=== PATIENT | male | born 1950 | race Caucasian/White ===

== ENCOUNTER 2017-04-24 15:30 | Inpatient (IN) | payer MEDICARE, BC ==
[~2017-04-24] VITALS: Ht 172.7 cm; Wt 101.7 kg
[~2017-04-24 15:30] MED LIST: ATOR20TA17; CLOP75TA19; ESOM20CA; INSU100I15; METF500T4; PIOG15TA12; PREG150C; WARF7.5T; ZOLP5TAB
[2017-04-24] MEDS ORDERED: SODIUM CHLORIDE 0.9% 1L BAG IV* STA (16:34)
[2017-04-24 16:50] VITALS: Ht 172.7 cm; Wt 101.7 kg
[2017-04-24 17:07] LABS: INR 1.55; PROTIME 18.7 Sec (12.2-14.2); PT RATIO 1.5
[2017-04-24 17:08] LABS: PARTIAL THROMBOPLASTIN TIME 43.1 Sec (25.0-35.0)
[2017-04-24 17:13] LABS: ALBUMIN 3.6 g/dl (3.3-4.9); ALBUMIN/GLOBULIN RATIO 0.87; BILIRUBIN,INDIRECT 0.6 mg/dl (0-1.1); BILIRUBIN,TOTAL 0.6 mg/dl (0.2-1.3); CALCIUM 9.3 mg/dl (8.4-10.2); CREATININE 5.71 mg/dl (0.61-1.24); POTASSIUM 4.4 mmol/L (3.5-5.1); TOTAL PROTEIN 7.7 g/dl (6.1-8.1)
[2017-04-24 17:27] LABS: BASOPHIL # 0.1 10^3/ul (0.0-0.1); BASOPHILS % 0.6 % (0.0-2.0); EOSINOPHILS # 1.1 10^3/ul (0.0-0.5); EOSINOPHILS % 10.3 % (0.0-7.0); HEMATOCRIT 28.6 % (42.0-52.0); HEMOGLOBIN 10.4 g/dl (14.0-18.0); LYMPHOCYTES # 1.5 10^3/ul (0.8-2.9); LYMPHOCYTES % 13.6 % (15.0-51.0); MEAN CORPUSCULAR HEMOGLOBIN 34.1 pg (29.0-33.0); MEAN CORPUSCULAR HGB CONC 36.4 g/dl (32.0-37.0); MEAN CORPUSCULAR VOLUME 93.8 fl (82.0-101.0); MEAN PLATELET VOLUME 12.3 fl (7.4-10.4); MONOCYTE # 0.9 10^3/ul (0.3-0.9); NEUTROPHIL # 7.4 10^3/ul (1.6-7.5); PLATELET COUNT 329 10^3/UL (140-415); RED BLOOD COUNT 3.05 10^6/ul (4.70-6.10)
[2017-04-24 17:30] LABS: TROPONIN-I 0.404 ng/ml (0.00-0.12)
--- NOTE | 2017-04-24 17:36 | RADRPT ---
PROCEDURE: XR Chest. CLINICAL INDICATION: Sepsis TECHNIQUE: Single AP portable chest. COMPARISON: No prior Chest x-ray FINDINGS: The cardiomediastinal silhouette is within normal limits of size. Mild interstitial and vascular pro minence. Atherosclerotic calcification of the aorta. The lungs are clear without pleural effusion or focal consolidation. No pneumothorax. The osseous structures and soft tissues are unremarkable. IMPRESSION: 1. Mild vascular and interstitial prominence without pleural effusion or focal consolidation. . RPTAT:AAJJ Physician Dutch Date Time Electronically viewed and signed by Physician Dutch on 04/24/2017 17:36 KARLA/
[2017-04-24] MEDS ORDERED: HYDR-902 PO (18:20)
[2017-04-24] MEDS ORDERED: ERGO500037 PO (18:21)
[2017-04-24] MEDS ORDERED: FER325 PO (18:21)
[2017-04-24] MEDS ORDERED: FURO40TA4 PO (18:22)
[2017-04-24] MEDS ORDERED: LABE300T PO (18:22)
[2017-04-24] MEDS ORDERED: AMLO5TAB4 PO (18:23)
[2017-04-24] MEDS ORDERED: ATOR80TA75 PO (18:23)
[2017-04-24] MEDS ORDERED: VALS1TAB80 PO (18:24)
[2017-04-24] MEDS ORDERED: ESOM40CA PO (18:24)
[2017-04-24] MEDS ORDERED: FEBU40TA PO (18:25)
[2017-04-24] MEDS ORDERED: SITA100T8 PO (18:25)
[2017-04-24] MEDS ORDERED: LANT3I SC (18:26)
[2017-04-24] MEDS ORDERED: RIVA15TA PO (18:26)
[2017-04-24] MEDS ORDERED: NOVO3I SC (18:29)
--- NOTE | 2017-04-24 18:44 | ERD ---
ER Documentation Chief Complaint Chief Complaint Cough, congestion x 1 week HPI This is a 66-year-old male who presents to the emergency room for evaluation of generalized weakness, cough and congestion for the past week. This patient does have a history of high blood pressure, and states that he does have a history of "kidney problem". The patient is not on dialysis at this time and came to the ER for evaluation of his symptoms which have been present for 7 days duration. He denies any chest pain at this time, he does state that he has had chills and denies any fever currently. He denies any aggravating or relieving factors for his symptoms ROS All systems reviewed and are negative except as per history of present illness. Medications Home Meds Reported Medications Multivit/Ca Carb/B Cmplx/Fa* (Isabel-Brenda*) 1 Tab Tab, 1 TAB PO DAILY, TAB 04/24/17 Insulin Aspart* (Novolog Insulin Pen*) 100 Unit/Ml Soln, 0 SC .SLIDING SCALE AC , EA INJECT PER SLIDING SCALE TID BEFORE MEALS 04/24/17 Insulin Glargine* (Lantus*) 100 Unit/Ml Soln, 52 UNIT SC QHS, #1 VIAL 04/24/17 Rivaroxaban* (Xarelto*) 15 Mg Tablet, 15 MG PO WITH BREAKFAST , TAB 04/24/17 Febuxostat* (Uloric*) 40 Mg Tablet, 40 MG PO DAILY, TAB 04/24/17 Sitagliptin* (Januvia*) 100 Mg Tablet, 100 MG PO DAILY, #30 TAB 04/24/17 Valsartan-Hydrochlorothiazide (Valsartan-HCTZ) 320-12.5 Mg Tablet, 1 TAB PO DAILY, #30 TAB 04/24/17 Esomeprazole Mag Trihydrate (Nexium) 40 Mg Capsule.dr, 40 MG PO DAILY, #30 CAP 04/24/17 Atorvastatin* (Atorvastatin*) 80 Mg Tablet, 80 MG PO QHS, #30 TAB 04/24/17 Amlodipine Besylate* (Norvasc*) 5 Mg Tablet, 5 MG PO DAILY, TAB 04/24/17 Furosemide* (Furosemide*) 40 Mg Tablet, 40 MG PO BID, TAB 04/24/17 Labetalol Hcl* (Labetalol Hcl*) 300 Mg Tablet, 300 MG PO BID, TAB 04/24/17 Ergocalciferol (Vitamin D2) (VITAMIN D2) 50,000 Unit Capsule, 99931 UNIT PO Q7D , CAP 04/24/17 Ferrous Sulfate* (Ferrous Sulfate*) 325 Mg Tabec, 325 MG PO DAILY, TAB 04/24/17 Hydrocodone/Acetaminophen (Pontiac 10-325 Tablet) 1 Each Tablet, 1 EACH PO Q6H, TAB 04/24/17 Discontinued Reported Medications Warfarin Sodium* (Coumadin*) 7.5 Mg Tablet 06/07/10 Esomeprazole Mag Trihydrate (Nexium) 20 Mg Capsule. 05/16/10 Pregabalin* (Lyrica*) 150 Mg Capsule 05/16/10 Zolpidem Tartrate (Ambien Naresh) 5 Mg Tablet 05/16/10 Insulin Glargine,Hum.rec.anlog (Lantus Solostar) 100 Units/Ml Pen 05/16/10 Metformin* (Glucophage*) 500 Mg Tab 05/16/10 Atorvastatin (Lipitor) 20 Mg Tablet 05/16/10 Pioglitazone Hcl* (Actos*) 15 Mg Tablet 05/15/10 Clopidogrel Bisulfate (Plavix) 75 Mg Tablet 05/15/10 Allergies Allergies: Coded Allergies: No Known Allergies (Verified Allergy, Mild, 04/24/17) PMhx/Soc History of Surgery: No Anesthesia Reaction: No Hx 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 Disorder: No Hx Respiratory Disorders: No Hx Cardiac Disorders: No (htn ) Hx Psychiatric Problems: No Hx Miscellaneous Medical Probl: Yes (dm , renal disease) Hx Alcohol Use: No Hx Substance Use: No Hx Tobacco Use: No Smoking Status: Former smoker Physical Exam Vitals Vital Signs Date Time Temp Pulse Resp B/P Pulse Ox O2 Delivery O2 Flow Rate FiO2 04/24/17 16:50 97.7 71 18 120/60 96 Physical Exam INITIAL VITAL SIGNS: Reviewed by me GENERAL: The patient is ill-appearing elderly male, no acute distress HEENT: Pupils equal, round, and reactive to light. EOMI. There is no scleral icterus. NECK: C-spine is soft and supple, there is no meningismus. There is no cervical lymphadenopathy. LUNGS: Clear to auscultation bilaterally. There are no rales, wheezes or rhonchi. HEART: Regular rate and rhythm, no murmurs, clicks, rubs or gallops. ABDOMEN: Soft, non-tender, non-distended. There are bowel sounds in all four quadrants. No rebound or guarding. EXTREMITIES: There is no peripheral cyanosis or edema. No focal swelling or erythema. NEUROLOGICAL: The patient moves all four extremities with 5/5 strength. Cranial nerves II - XII are intact. Normal gait. Alert and oriented SKIN: There is no apparent rash or petechiae. HEME/LYMPHATIC: There is no evidence of excessive bruising or lymphedema. PSYCHIATRIC: The patient does not appear anxious or depressed. Result Diagram: 04/24/17 1635 04/24/17 1635 Results 24 hrs Laboratory Tests Test 04/24/17 16:35 White Blood Count 11.010^3/ul Red Blood Count 3.0510^6/ul Hemoglobin 10.4g/dl Hematocrit 28.6% Mean Corpuscular Volume 93.8fl Mean Corpuscular Hemoglobin 34.1pg Mean Corpuscular Hemoglobin Concent 36.4g/dl Red Cell Distribution Width 17.0% Platelet Count 06940^3/UL Mean Platelet Volume 12.3fl Neutrophils % 67.0% Lymphocytes % 13.6% Monocytes % 8.0% Eosinophils % 10.3% Basophils % 0.6% Nucleated Red Blood Cells % 0.0/100WBC Neutrophils # 7.410^3/ul Lymphocytes # 1.510^3/ul Monocytes # 0.910^3/ul Eosinophils # 1.110^3/ul Basophils # 0.110^3/ul Nucleated Red Blood Cells # 0.010^3/ul Prothrombin Time 18.7Sec Prothrombin Time Ratio 1.5 INR International Normalized Ratio 1.55 Activated Partial Thromboplast Time 43.1Sec Sodium Level 136mmol/L Potassium Level 4.4mmol/L Chloride Level 100mmol/L Carbon Dioxide Level 23mmol/L Anion Gap 17 Blood Urea Nitrogen 74mg/dl Creatinine 5.71mg/dl Glucose Level 85mg/dl Lactic Acid Level 2.0mmol/L Calcium Level 9.3mg/dl Total Bilirubin 0.6mg/dl Direct Bilirubin 0.00mg/dl Indirect Bilirubin 0.6mg/dl Aspartate Amino Transf (AST/SGOT) 20IU/L Alanine Aminotransferase (ALT/SGPT) 43IU/L Alkaline Phosphatase 70IU/L Troponin I 0.404ng/ml Total Protein 7.7g/dl Albumin 3.6g/dl Globulin 4.10g/dl Albumin/Globulin Ratio 0.87 Current Medications Medications (Trade) Dose Ordered Sig/Becky Route PRN Reason Start Time Stop Time Status Last Admin Dose Admin Sodium Chloride (NS) 2,500 ml BOLUS OVER 2 HOURS STAT IV* 04/24/17 16:34 04/24/17 16:35 DC 04/24/17 16:54 Ondansetron HCl (Zofran Inj) 4 mg ER BRIDGE PRN IV NAUSEA AND/OR VOMITING 04/24/17 19:30 04/25/17 19:29 Acetaminophen (Tylenol Tab) 650 mg ER BRIDGE PRN PO MILD PAIN/FEVER 04/24/17 19:30 04/25/17 19:29 Procedures/MDM EKG: Rate/Rhythm: [Normal Sinus Rhythm] QRS, ST, T-waves: [No changes consistent w/ acute ischemia] Impression: [No evidence of ischemia or arrhythmia] Chest X-ray 1V Interpreted by me: Soft Tissue: No acute abnormalities Bones: No acute abnormalities Mediastinum/Cardiac Silhouette/Lungs: [No acute abnormalities] This 66-year-old male presents to the emergency room for evaluation of generalized weakness, and congestion. The patient did state he had some renal issues however denied being on dialysis. Lab work was obtained and the patient does have an elevated troponin and an elevated creatinine. His last creatinine was from 2010 and was less than 2. Today's creatinine is 5.71 with an elevated BUN as well. 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 kennedy at [facility] and I contacted the physician on-call, Dr. Mcclellan and have reviewed the lab work with him. The on-call physician does not have this patient's baseline creatinine, I also mentioned that the patient does have elevated troponin. Although this elevated troponin can be due to his elevated creatinine I have no baseline creatinine at this point to make that determination. This patient is feeling weak, he does not have any chest pain and since I do not have any background information will place the patient in for admission at this time on the telemetry floor for acute renal failure, non- ST elevation KS. The patient's family members are okay with her plan of care at this time and the patient will be admitted to telemetry floor under the care of Dr. Najera Critical Care: Excluding all billable procedures Time: 35 minutes Treatments/Evaluations: Close monitoring and treatment of unstable vital signs, cardiorespiratory, and neurologic status, while maintaining tight balance of fluid, respiratory, and cardiac interventions. Departure Diagnosis: Primary Impression: Acute renal failure Additional Impressions: Elevated troponin Cough Normocytic anemia Condition: Stable RICHARD WEINER DO Apr 24, 2017 18:44
[2017-04-24] MEDS ORDERED: NEPH PO (18:46)
[2017-04-24] MEDS ORDERED: ONDANSETRON 4 MG INJ IV PRN (19:30)
[2017-04-24] MEDS ORDERED: ACETAMINOPHEN 325 MG TAB PO PRN (19:30)
[2017-04-24] MEDS ORDERED: ASPIRIN 325 MG TAB PO ONE (19:30)
[2017-04-24 19:58] LABS: ADD UMIC YES; UR ASCORBIC ACID NEGATIVE (NEGATIVE); UR BILIRUBIN (Dip) NEGATIVE (NEGATIVE); UR BLOOD (Dip) NEGATIVE (NEGATIVE); UR CLARITY CLOUDY (CLEAR); UR COLOR YELLOW (YELLOW); UR GLUCOSE (Dip) 1+ mg/dL (NEGATIVE); UR KETONES (Dip) NEGATIVE (NEGATIVE); UR LEUKOCYTE ESTERASE (Dip) NEGATIVE Leu/ul (NEGATIVE); UR MUCUS FEW /HPF (NONE SEEN); UR NITRITE (Dip) NEGATIVE (NEGATIVE); UR RBC 0 /HPF (0-5); UR TOTAL PROTEIN (Dip) 3+ mg/dl (NEGATIVE); UR UROBILINOGEN (Dip) NEGATIVE (NEGATIVE)
[2017-04-24 21:07] VITALS: PULSE 56
[2017-04-24 21:21] VITALS: BP 164/73; RESP 19
[2017-04-24] MEDS ORDERED: ONDANSETRON 4 MG TAB PO PRN (23:00)
[2017-04-24] MEDS ORDERED: BISACODYL (EC) 5 MG TAB PO PRN (23:00)
[2017-04-24] MEDS ORDERED: NITROGLYCERIN (SL) 0.4 MG TAB SL PRN (23:00)
[2017-04-24] MEDS ORDERED: NACL 0.9% 3 ML SYG IV SCH (23:00)
[2017-04-24] MEDS ORDERED: DOCUSATE SODIUM 100 MG CAP PO PRN (23:00)
[2017-04-25] VITALS (11 sets, daily range): BP systolic 157–192; BP diastolic 70–88; PULSE 57–107; RESP 19–21
[2017-04-25 00:09] LABS: CK-MB 2.17 ng/ml (0.0-2.4); TROPONIN-I 0.305 ng/ml (0.00-0.12)
[2017-04-25] MEDS: ALBUTEROL/IPRATROPIUM (NEB) 3 ML AMP HHN SCH ×6 (00:52→21:18)
[2017-04-25] MEDS ORDERED: METHYLPREDNISOLONE 125 MG INJ IV ONE (03:30)
[2017-04-25] MEDS ORDERED: FUROSEMIDE 40 MG INJ IV ONE (03:30)
--- NOTE | 2017-04-25 03:40 | HP ---
Date/Time of Note Date/Time of Note DATE: 04/25/17 TIME: 03:23 Assessment/Plan VTE Prophylaxis VTE Prophylaxis Intervention: SCD's Lines/Catheters IV [facility]ter [facility]from [facility] Mid Line Urinary Cath still in place: No Assessment/Plan Chief Complaint/Hosp Course This is a 66-year-old male being admitted to the telemetry floor for: #1 shortness of breath: Fluid overload secondary to cardiac and/or renal disease versus COPD exacerbation. Auditory wheezing bilaterally on examination and with some mild lower extremity edema. He has history of smoking in the past. At the current time I am unsure whether this is respiratory versus cardiac and renal. He does have a significantly worsened renal failure at this time compared to his previous one in 2011. At the current time I will treat him with duo nebs every 4 hours. Will load him with Solu-Medrol IV. We will also give him Lasix 40 mg IV 1 for diuresis. Will check an echocardiogram and a BNP. Will trend cardiac enzymes. First troponin was elevated at 0.4 however patient denies any chest pain, so this could be secondary to his renal failure. #2 Acute on chronic kidney disease: Possibly secondary to ATN versus AIN and/ or related to diabetes and/or hypertension his previous creatinine is 1.60 which was in 2011 at this facility. At the current time it is elevated above 5. I will order a renal ultrasound bilaterally check urine microscope, urine sodium, urine osmolality. I will hold his ARB combination pill, I will also hold you uloric. I will give him a dose of Lasix 40 IV right now in the setting of #1. Will put him on renal diet and strict I's and O's and a fluid restriction of 800 cc. Will consult nephrology. #3 elevated troponin: Patient's first troponin is elevated at 0.4. Patient denying any chest pain. His EKG does not appear ischemic. At the current time this could be secondary to his kidney disease. Will continue to trend troponins. Will get an echocardiogram. And consult cardiology if indicated #4 normocytic anemia: We will check iron stores, this could be secondary to patient's chronic kidney disease as well, will wait for further limitations from nephrology. Continue ferrous sulfate. #5 leukocytosis: Patient has elevated white count of 11,000, patient is afebrile and there is no source of any infection at this time. Will order urinalysis. This could be stress related. Will continue to follow this. #6 diabetes mellitus: We will check hemoglobin A1c, patient on insulin sliding scale, continue patient's home Lantus and will need to monitor sugars in the setting of systemic steroids. #7 hypertension: We will continue patient's amlodipine, as needed hydralazine. Will hold ARB combination pill secondary to #2. #8 gout: At the current time will hold uloric in the setting of #2 as a can cause interstitial nephritis. #9 GERD: Continue PPI #10 history of DVT: Patient reports a history of a DVT in the past however no recent one that he can confirm. Nonetheless we will continue Xarelto for now until we get further information regarding why he is on it at this time. #11 DVT GI prophylaxis: Xarelto, PPI Further treatment strategy will be implemented as per the clinical course Problems: HPI/ROS Admit Date/Time Admit Date/Time Apr 24, 2017 at 19:05 Hx of Present Illness cc: cough, congestion x 1 week This is a 66-year-old male who presents to the emergency room for evaluation of generalized weakness, cough and congestion for the past week. This patient does have a history of high blood pressure, and states that he does have a history of "kidney problem". The patient is not on dialysis at this time and came to the ER for evaluation of his symptoms which have been present for 7 days duration. He denies any chest pain at this time, he does state that he has had chills and denies any fever currently. He denies any aggravating or relieving factors for his symptoms allergies: nkda meds: see jul DOM Const: As per HPI Eyes : No pain discharge or redness or change in visual acuity ENT: No pain, sore throat, congestion, congestion, dysphagia or discharge Respiratory: As per HPI Cardiovascular: No chest pain, palpitation, PND, or edema GI : no change in appetite, abdominal pain, nausea, vomiting, diarrhea, constipation, or change in the color his stool Genitourinary: No dysuria, hematuria, flank pain , discharge or CVA tenderness , he states that he still urinating normally Musculoskeletal: No joint pain, back pain, neck pain, restricted range of motion in neck or joints Skin: No rash, bruising or hives Neuro: No headache, dizziness, syncope, seizure, focal weakness Endocrine: No polyuria, polydipsia, temperature intolerance Psych: No hallucination, depression, anxiety or suicidal ideation PMH/Family/Social Past Medical History DM, htn, [place], CKD, gout, anemia, hx of dvt, GERD Past Surgical History Stents x 2 Family History Significant Family History: no pertinent family hx Social History Alcohol Use: occasionally Smoking Status: Former smoker Drug Use: none Exam/Review of Systems Vital Signs Vitals Vital Signs Date Time Temp Pulse Resp B/P Pulse Ox O2 Delivery O2 Flow Rate FiO2 04/25/17 00:52 2.0 04/25/17 00:52 85 24 88 Nasal Cannula 04/25/17 00:00 98.2 166/75 Exam Exam General: This is a obese male lying in bed in no acute distress but he is coughing HEENT: Atraumatic, normocephalic. The pupils are equal, round and reactive. Extraocular motor are intact Neck: Supple with full range of motion. No rigidity or meningismus Chest: Nontender Lungs: Expiratory wheezing bilaterally, no increased work of breathing, coughing Heart: Normal S1-S2, Regular rhythm and rate. No murmur, S3, or S4 Abdomen: Soft , nontender, nondistended , bowel sounds are present. No guarding no rebound tenderness , No masses or organomegaly. No costovertebral temporal angle mass Extremities: Normal to inspection, no edema no cyanosis Neurologic: Normal mental status, speech normal, cranial nerves II through XII are intact, motor and sensory are intact, no focal weakness Additional Comments PROCEDURE: XR Chest. CLINICAL INDICATION: Sepsis TECHNIQUE: Single AP portable chest. COMPARISON: No prior Chest x-ray FINDINGS: The cardiomediastinal silhouette is within normal limits of size. Mild interstitial and vascular prominence. Atherosclerotic calcification of the aorta. The lungs are clear without pleural effusion or focal consolidation. No pneumothorax. The osseous structures and soft tissues are unremarkable. IMPRESSION: 1. Mild vascular and interstitial prominence without pleural effusion or focal consolidation. . RPTAT:AAJJ Physician Dutch Date Time Electronically viewed and signed by Physician Dutch on 04/24/2017 17:36 KARLA/ CC: RICHARD WEINER DO EKG: Rate/Rhythm: [Normal Sinus Rhythm] QRS, ST, T-waves: [No changes consistent w/ acute ischemia] Impression: [No evidence of ischemia or arrhythmia] Above as per ED physician documentation Labs Result Diagram: 04/24/17 1635 04/24/17 1635 Medications Medications Current Medications Ondansetron HCl (Zofran Tab) 4 mg Q6H PRN PO NAUSEA AND/OR VOMITING; Start at 23:00 Nitroglycerin (Nitroglycerin (Sl Tab) 0.4 Mg) 1 tab Q5M PRN SL CHEST PAIN; Start 04/24/17 at 23:00 Docusate Sodium (Colace) 100 mg Q12H PRN PO CONSTIPATION; Start 04/24/17 at 23 :00 Bisacodyl (Dulcolax) 5 mg DAILY PRN PO CONSTIPATION; Start 04/24/17 at 23:00 Amlodipine Besylate (Norvasc) 5 mg DAILY PO ; Start 04/25/17 at 09:00 Atorvastatin Calcium (Lipitor) 80 mg QHS PO ; Start 04/25/17 at 21:00 Ergocalciferol (Drisdol) 50,000 unit Q7D PO ; Start 04/24/17 at 23:00; Status UNV Ferrous Sulfate (Ferrous Sulfate (Ec)) 325 mg DAILY PO ; Start 04/25/17 at 09: 00 Insulin Glargine (Lantus) 52 unit QHS SC ; Start 04/25/17 at 21:00 Multivit/Ca Carb/ B Cmplx/FA/Prenat (Isabel-Brenda) 1 tab DAILY PO ; Start at 09:00 Pantoprazole (Protonix Tab) 40 mg DAILY@06 PO ; Start 04/25/17 at 06:00 Guaifenesin/ Dextromethorphan (Mucinex Dm) 1 tab BID PO ; Start 04/25/17 at 03: 15 Furosemide (Lasix) 40 mg ONCE ONCE IV ; Start 04/25/17 at 03:30; Stop at 03:31 MARVIN ROTH Apr 25, 2017 03:35
[2017-04-25] MEDS: hydrALAzine 20 MG INJ IV PRN ×2 (03:48→15:44)
[2017-04-25] MEDS: GUAIFENESIN/DM (SR) TAB PO SCH ×2 (05:02→21:03)
[2017-04-25] MEDS: PANTOPRAZOLE (EC) 40 MG TAB PO SCH (05:48)
[2017-04-25] MEDS ORDERED: RIVAROXABAN 15 MG TABLET PO SCH (07:55)
[2017-04-25] MEDS ORDERED: [UNRECOGNIZED DRUG - OTHER] XX SCH (08:00)
[2017-04-25] MEDS ORDERED: ERGOCALCIFEROL 50000 UNIT XX SCH (08:00)
[2017-04-25 08:09] LABS: ALBUMIN 2.8 g/dl (3.3-4.9); ALBUMIN/GLOBULIN RATIO 0.82; CALCIUM 8.9 mg/dl (8.4-10.2); CHOL/HDL RATIO 9.5 RATIO; CREATININE 5.5 mg/dl (0.61-1.24); MAGNESIUM 1.7 mg/dl (1.7-2.5); TOTAL PROTEIN 6.2 g/dl (6.1-8.1)
[2017-04-25 08:16] LABS: CK-MB 2.55 ng/ml (0.0-2.4); TROPONIN-I 0.219 ng/ml (0.00-0.12)
[2017-04-25 08:32] LABS: ABNORMAL IP MESSAGE 1; BASOPHIL # 0.1 10^3/ul (0.0-0.1); BASOPHILS % 0.6 % (0.0-2.0); EOSINOPHILS # 0.4 10^3/ul (0.0-0.5); HEMATOCRIT 25.6 % (42.0-52.0); HEMOGLOBIN 10.2 g/dl (14.0-18.0); LYMPHOCYTES # 0.9 10^3/ul (0.8-2.9); LYMPHOCYTES % 8.3 % (15.0-51.0); MEAN CORPUSCULAR HEMOGLOBIN 39.8 pg (29.0-33.0); MEAN PLATELET VOLUME 12.4 fl (7.4-10.4); MONOCYTE # 0.2 10^3/ul (0.3-0.9); MONOCYTES % 1.8 % (0.0-11.0); NEUTROPHIL # 8.7 10^3/ul (1.6-7.5); NEUTROPHILS % 84.1 % (39.0-77.0); PLATELET COUNT 317 10^3/UL (140-415); RED BLOOD COUNT 2.56 10^6/ul (4.70-6.10); RED CELL DISTRIBUTION WIDTH 22.8 % (11.5-14.5); WHITE BLOOD COUNT 10.3 10^3/ul (4.8-10.8)
[2017-04-25 08:34] LABS: THYROID STIMULATING HORMONE 1.51 MIU/L (0.465-4.680)
[2017-04-25 08:36] LABS: MEAN CORPUSCULAR HGB CONC 39.8 g/dl (32.0-37.0)
[2017-04-25] MEDS: FERROUS SULFATE (EC) 325 MG TAB PO SCH (08:41)
[2017-04-25] MEDS: MULTIVIT/CA CARB/B CMPLX/FA TAB PO SCH (08:42)
[2017-04-25] MEDS: AMLODIPINE 5 MG TAB PO SCH (08:43)
[2017-04-25] MEDS: INSULIN ASPART [NOVOLOG] 3 ML PEN SC SCH ×6 (08:47→21:12)
--- NOTE | 2017-04-25 09:49 | CONS ---
Date/Time of Note Date/Time of Note DATE: 04/25/17 TIME: 09:48 Assessment/Plan Assessment/Plan Additional Assessment/Plan ASSESSMENT: 1. Oliguric TROY on CKD III/IV Due to possible Cardiorenal syndrome with worsening renal failue due to diabetic nephropathy- failed outpatient PO lasix therapy 2. 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 Acute hyperkalemia due to TROY on CKD 4. Metabolic acidosis due to worsenign renal failure 5. H/ CAD S/p previous coronary angiogram as per patient 6. Hypertension 7. Type II DM 8. Hyperlipidemia Plan : Kayexalate 30 gram PO x 1 dose, will start Bicitra 30ml PO TID one dose now Renal US has been ordered IV albumin +l asix has been ordered for better diureissi, hold Po lasix, PO stop valsartan/HCTZ pt is on xarelto for anticoagulation d/w with patient at bedside about his very low renal function and possible need of dialysis. he wants to wait one more day with IV lasix and asked me to call his PMD office and Daughter.. I will try to reach out to family today. will follow up. Thanks for consultation. Consultation Date/Type/Reason Admit Date/Time Apr 24, 2017 at 19:05 Date of Consultation: Apr 25, 2017 Type of Consultation: NEPHROLOGY Reason for Consultation acute kidney injury on CKD, Hyperkalemia Fluid overload, pulmonary edema Referring Provider: MARVIN ROTH Hx of Present Illness 66 M with PMHx of HTN, DM II, HL, H/o CKD due to diabetic nehropathy as per patient, he follows with outside physician who doesn't come here. pt presented with SOB, Congestion and worsenign renal failure, he is also noted to have Hyperkalemia with K 6.0 and decreased urine output . Constitutional: no complaints Eyes: no complaints ENT: no complaints Respiratory: cough, no complaints, pleuritic pain, shortness of breath Cardiovascular: no complaints Gastrointestinal: no complaints Genitourinary: no complaints Musculoskeletal: no complaints Skin: no complaints Neurologic: no complaints Endocrine: no complaints Lymphatic: no complaints Psychological: no complaints Immunologic: no complaints Past Medical History Medical History: coronary artery disease, diabetes, hypertension, renal disease Past Surgical History Past Surgical Hx: other (Coronary angiogram and stomach surgery ) Family History Significant Family History: no pertinent family hx Social History Alcohol Use: none Smoking Status: Former smoker Drug Use: none Exam/Review of Systems Vital Signs Vitals Vital Signs Date Time Temp Pulse Resp B/P Pulse Ox O2 Delivery O2 Flow Rate FiO2 04/25/17 08:22 79 22 93 Nasal Cannula 3.0 04/25/17 07:18 98.2 157/74 Intake and Output 04/24/17 04/24/17 04/25/17 15:00 23:00 07:00 Intake Total 120 ml Output Total 600 ml Balance -480 ml Exam Constitutional: alert Psych: no complaints Head: normocephalic Eyes: nl conjunctiva ENMT: nl external ears & nose Neck: non-tender, supple Respiratory: clear to auscultation, diminished breath sounds, normal air movement Cardiovascular: nl pulses, regular rate and rhythm Gastrointestinal: non-tender, soft Musculoskeletal: muscle weakness, nl extremities to inspection, swelling Extremities: calf tenderness, normal pulses 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: 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 DIRECTOR II-XII intact, nl mental status, nl speech, nl strength Results Result Diagram: 04/25/17 0632 04/25/17 0632 Results 24 hrs Laboratory Tests Test 04/24/17 16:35 04/24/17 18:30 04/24/17 19:30 04/24/17 21:25 White Blood Count 11.0 H Red Blood Count 3.05 L Hemoglobin 10.4 L Hematocrit 28.6 L Mean Corpuscular Volume 93.8 Mean Corpuscular Hemoglobin 34.1 H Mean Corpuscular Hemoglobin Concent 36.4 Red Cell Distribution Width 17.0 H Platelet Count 329 Mean Platelet Volume 12.3 H Neutrophils % 67.0 Lymphocytes % 13.6 L Monocytes % 8.0 Eosinophils % 10.3 H Basophils % 0.6 Nucleated Red Blood Cells % 0.0 Neutrophils # 7.4 Lymphocytes # 1.5 Monocytes # 0.9 Eosinophils # 1.1 H Basophils # 0.1 Nucleated Red Blood Cells # 0.0 Prothrombin Time 18.7 H Prothrombin Time Ratio 1.5 INR International Normalized Ratio 1.55 Activated Partial Thromboplast Time 43.1 H Sodium Level 136 Potassium Level 4.4 Chloride Level 100 Carbon Dioxide Level 23 Anion Gap 17 H Blood Urea Nitrogen 74 H Creatinine 5.71 H Glucose Level 85 Lactic Acid Level 2.0 Calcium Level 9.3 Total Bilirubin 0.6 Direct Bilirubin 0.00 Indirect Bilirubin 0.6 Aspartate Amino Transf (AST/SGOT) 20 Alanine Aminotransferase (ALT/SGPT) 43 Alkaline Phosphatase 70 Troponin I 0.404 *H 0.305 *H Total Protein 7.7 Albumin 3.6 Globulin 4.10 H Albumin/Globulin Ratio 0.87 Urine Color YELLOW Urine Clarity CLOUDY A Urine pH 5.0 Urine Specific [place] 1.010 Urine Ketones NEGATIVE Urine Nitrite NEGATIVE Urine Bilirubin NEGATIVE Urine Urobilinogen NEGATIVE Urine Leukocyte Esterase NEGATIVE Urine Microscopic RBC 0 Urine Microscopic WBC 1 Urine Hyaline Casts FEW A Urine Mucus FEW A Urine Hemoglobin NEGATIVE Urine Glucose 1+ H Urine Total Protein 3+ H Urine Osmolality 302 Urine Random Sodium 40 Creatine Kinase 74 Creatine Kinase Index 2.9 Creatinine Kinase MB (Mass) 2.17 Test 04/24/17 23:18 04/25/17 06:32 04/25/17 08:19 Osmolality 312 H White Blood Count 10.3 Red Blood Count 2.56 L Hemoglobin 10.2 L Hematocrit 25.6 L Mean Corpuscular Volume 100.0 Mean Corpuscular Hemoglobin 39.8 H Mean Corpuscular Hemoglobin Concent 39.8 H Red Cell Distribution Width 22.8 #H Platelet Count 317 Mean Platelet Volume 12.4 H Neutrophils % 84.1 H Lymphocytes % 8.3 L Monocytes % 1.8 Eosinophils % 4.0 Basophils % 0.6 Nucleated Red Blood Cells % 0.0 Neutrophils # 8.7 H Lymphocytes # 0.9 Monocytes # 0.2 L Eosinophils # 0.4 Basophils # 0.1 Nucleated Red Blood Cells # 0.0 Sodium Level 135 Potassium Level 6.0 H Chloride Level 102 Carbon Dioxide Level 19 L Anion Gap 20 H Blood Urea Nitrogen 82 H Creatinine 5.50 H Glucose Level 464 #*H Hemoglobin A1c 7.2 H Calcium Level 8.9 Magnesium Level 1.7 Total Bilirubin 1.0 Direct Bilirubin 0.00 Indirect Bilirubin 1.0 Aspartate Amino Transf (AST/SGOT) 23 Alanine Aminotransferase (ALT/SGPT) 43 Alkaline Phosphatase 66 Creatine Kinase 77 Creatine Kinase Index 3.3 Creatinine Kinase MB (Mass) 2.55 H Troponin I 0.219 *H B-Type Natriuretic Peptide 4720 H Total Protein 6.2 # Albumin 2.8 L Globulin 3.40 H Albumin/Globulin Ratio 0.82 Triglycerides Level 388 H Cholesterol Level 220 H LDL Cholesterol, Calculated 119 HDL Cholesterol 23 L Cholesterol/HDL Ratio 9.5 Thyroid Stimulating Hormone (TSH) 1.510 Bedside Glucose 492 *H Medications Medications Current Medications Ondansetron HCl (Zofran Tab) 4 mg Q6H PRN PO NAUSEA AND/OR VOMITING; Start at 23:00 Nitroglycerin (Nitroglycerin (Sl Tab) 0.4 Mg) 1 tab Q5M PRN SL CHEST PAIN; Start 04/24/17 at 23:00 Docusate Sodium (Colace) 100 mg Q12H PRN PO CONSTIPATION; Start 04/24/17 at 23 :00 Bisacodyl (Dulcolax) 5 mg DAILY PRN PO CONSTIPATION; Start 04/24/17 at 23:00 Amlodipine Besylate (Norvasc) 5 mg DAILY PO Last administered on 04/25/17 08: 43; Admin Dose 5 MG; Start 04/25/17 at 09:00 Atorvastatin Calcium (Lipitor) 80 mg QHS PO ; Start 04/25/17 at 21:00 Ergocalciferol (Drisdol) 50,000 unit Mo@09 PO ; Start 04/24/17 at 23:00 Ferrous Sulfate (Ferrous Sulfate (Ec)) 325 mg DAILY PO Last administered on 08:41; Admin Dose 325 MG; Start 04/25/17 at 09:00 Insulin Glargine (Lantus) 52 unit QHS SC ; Start 04/25/17 at 21:00 Multivit/Ca Carb/ B Cmplx/FA/Prenat (Isabel-Brenda) 1 tab DAILY PO Last administered on 04/25/17 08:42; Admin Dose 1 TAB; Start 04/25/17 at 09:00 Pantoprazole (Protonix Tab) 40 mg DAILY@06 PO Last administered on 04/25/17 05:48; Admin Dose 40 MG; Start 04/25/17 at 06:00 Guaifenesin/ Dextromethorphan (Mucinex Dm) 1 tab BID PO Last administered on 05:02; Admin Dose 1 TAB; Start 04/25/17 at 03:15 Hydralazine HCl (Apresoline) 10 mg Q4H PRN IV ELEVATED BLOOD PRESSURE Last administered on 04/25/17 03:48; Admin Dose 10 MG; Start 04/25/17 at 03:30 Diagnostic Test (Pha) (Accu-Chek) 1 ea 02 XX ; Start 04/26/17 at 02:00 Citric Acid/ Sodium Citrate (Bicitra) 30 ml ONCE ONCE PO ; Start 04/25/17 at 10:00; Stop 04/25/17 at 10:01 Citric Acid/ Sodium Citrate 30 ml 30 ml TID PO ; Start 04/25/17 at 13:00 Albumin Human (Albumin Human 25%) 50 ml @ 100 mls/hr BID IV ; Start 04/25/17 at 10:00; Stop 04/27/17 at 12:30; Status UNV RAQUEL MCDOWELL MD Apr 25, 2017 09:49
[2017-04-25 09:50] LABS: ANISOCYTOSIS 1+ (0-0); EOSINOPHILS % (M) 5 % (0-7); HYPOCHROMASIA 1+ (0-0); PLATELET ESTIMATE NORMAL
[2017-04-25] MEDS ORDERED: NA POLYST SULFON 15 GM/60 ML BTL PO ONE (10:00)
[2017-04-25] MEDS ORDERED: CITRIC ACID/SODIUM CITRATE 15 ML CUP PO ONE (10:00)
[2017-04-25] MEDS ORDERED: NPH, HUMAN INSULIN ISOPHANE 3ML VIAL SC ONE ×2 (11:00→18:00)
[2017-04-25] MEDS: ALBUMIN HUMAN 25% 50 ML IV SCH ×2 (11:30→21:57)
--- NOTE | 2017-04-25 11:33 | CONS ---
Date/Time of Note Date/Time of Note DATE: 04/25/17 TIME: 11:20 Assessment/Plan Assessment/Plan Additional Assessment/Plan Volume overload Acute kidney injury with history of CKD Acute decompensated congestive heart failure Diabetes CAD with history of PCI over 10 years ago Hypertension Dyslipidemia History of DVT, on anticoagulation -Patient with evidence of volume overload, pulmonary vascular congestion and acute kidney injury with hyperkalemia. Patient being seen by nephrology. Diuretics being managed by our nephrology colleagues. Patient is also on Xarelto for anticoagulation, and discussion with pharmacy staff, creatinine clearance is 12. This would prevent the use of Xarelto. Would DC anticoagulation at the current time as well as given patient might be started on hemodialysis and will need to catheter placement, and place on DVT prophylaxis, check lower extremity venous Dopplers given history of DVT. Continue statin therapy if no contraindication. Consultation Date/Type/Reason Admit Date/Time Apr 24, 2017 at 19:05 Type of Consultation: cv Reason for Consultation Shortness of breath and elevated troponin Hx of Present Illness This is a 66-year-old male with past medical history of diabetes, hypertension, DVT, CAD with PCI over 10 years ago, chronic kidney disease who presents with worsening shortness of breath over the past few weeks. Symptoms are worse with exertion and improved at rest. He denies exertional chest discomfort or paroxysmal nocturnal dyspnea. Because of his worsening symptoms, he came to the emergency room for evaluation care. On routine blood work, patient was found to be in acute kidney injury as well as elevated troponin. For this reason cardiology consultation was requested. At the current time at rest, patient denies any chest pain or shortness of breath, he denies any fevers or chills. He has been having a cough. 12 point review of systems was performed with all pertinent positives and negatives mentioned above and all else is negative Past Medical History DVT Medical History: coronary artery disease, diabetes, hypertension, renal disease Past Surgical History Past Surgical Hx: other (Coronary angiogram and stomach surgery ) Family History Significant Family History: no pertinent family hx Social History Alcohol Use: occasionally Smoking Status: Former smoker Drug Use: none Exam/Review of Systems Vital Signs Vitals Vital Signs Date Time Temp Pulse Resp B/P Pulse Ox O2 Delivery O2 Flow Rate FiO2 04/25/17 08:22 79 22 93 Nasal Cannula 3.0 04/25/17 07:18 98.2 157/74 Intake and Output 04/24/17 04/24/17 04/25/17 14:59 22:59 06:59 Intake Total 120 ml Output Total 600 ml Balance -480 ml Exam No apparent distress Constitutional: alert, obese, oriented Head: normocephalic Respiratory: other (Coarse breath sounds bilaterally, minimal scattered wheezing) Cardiovascular: other (S1-S2 heard), regular rate and rhythm Gastrointestinal: bowel sounds, non-tender, soft Extremities: edema Results Result Diagram: 04/25/17 0632 04/25/17 0632 Results 24 hrs Laboratory Tests Test 04/24/17 16:35 04/24/17 18:30 04/24/17 19:30 04/24/17 21:25 White Blood Count 11.0 H Red Blood Count 3.05 L Hemoglobin 10.4 L Hematocrit 28.6 L Mean Corpuscular Volume 93.8 Mean Corpuscular Hemoglobin 34.1 H Mean Corpuscular Hemoglobin Concent 36.4 Red Cell Distribution Width 17.0 H Platelet Count 329 Mean Platelet Volume 12.3 H Neutrophils % 67.0 Lymphocytes % 13.6 L Monocytes % 8.0 Eosinophils % 10.3 H Basophils % 0.6 Nucleated Red Blood Cells % 0.0 Neutrophils # 7.4 Lymphocytes # 1.5 Monocytes # 0.9 Eosinophils # 1.1 H Basophils # 0.1 Nucleated Red Blood Cells # 0.0 Prothrombin Time 18.7 H Prothrombin Time Ratio 1.5 INR International Normalized Ratio 1.55 Activated Partial Thromboplast Time 43.1 H Sodium Level 136 Potassium Level 4.4 Chloride Level 100 Carbon Dioxide Level 23 Anion Gap 17 H Blood Urea Nitrogen 74 H Creatinine 5.71 H Glucose Level 85 Lactic Acid Level 2.0 Calcium Level 9.3 Total Bilirubin 0.6 Direct Bilirubin 0.00 Indirect Bilirubin 0.6 Aspartate Amino Transf (AST/SGOT) 20 Alanine Aminotransferase (ALT/SGPT) 43 Alkaline Phosphatase 70 Troponin I 0.404 *H 0.305 *H Total Protein 7.7 Albumin 3.6 Globulin 4.10 H Albumin/Globulin Ratio 0.87 Urine Color YELLOW Urine Clarity CLOUDY A Urine pH 5.0 Urine Specific [place] 1.010 Urine Ketones NEGATIVE Urine Nitrite NEGATIVE Urine Bilirubin NEGATIVE Urine Urobilinogen NEGATIVE Urine Leukocyte Esterase NEGATIVE Urine Microscopic RBC 0 Urine Microscopic WBC 1 Urine Hyaline Casts FEW A Urine Mucus FEW A Urine Hemoglobin NEGATIVE Urine Glucose 1+ H Urine Total Protein 3+ H Urine Osmolality 302 Urine Random Sodium 40 Creatine Kinase 74 Creatine Kinase Index 2.9 Creatinine Kinase MB (Mass) 2.17 Test 04/24/17 23:18 04/25/17 06:32 04/25/17 08:19 04/25/17 10:12 Osmolality 312 H White Blood Count 10.3 Red Blood Count 2.56 L Hemoglobin 10.2 L Hematocrit 25.6 L Mean Corpuscular Volume 100.0 Mean Corpuscular Hemoglobin 39.8 H Mean Corpuscular Hemoglobin Concent 39.8 H Red Cell Distribution Width 22.8 #H Platelet Count 317 Mean Platelet Volume 12.4 H Neutrophils % 84.1 H Segmented Neutrophils % (Manual) 87 H Band Neutrophils % (Manual) 2 Lymphocytes % 8.3 L Lymphocytes % (Manual) 6 L Monocytes % 1.8 Eosinophils % 4.0 Eosinophils % (Manual) 5 Basophils % 0.6 Nucleated Red Blood Cells % 0.0 Neutrophils # 8.7 H Neutrophils # (Manual) 9.0 H Band Neutrophils # 0.2 Absolute Lymphocytes (Manual) 0.6 L Lymphocytes # 0.9 Monocytes # 0.2 L Eosinophils # 0.4 Basophils # 0.1 Nucleated Red Blood Cells # 0.0 Platelet Estimate NORMAL Hypochromasia 1+ Anisocytosis 1+ Sodium Level 135 Potassium Level 6.0 H Chloride Level 102 Carbon Dioxide Level 19 L Anion Gap 20 H Blood Urea Nitrogen 82 H Creatinine 5.50 H Glucose Level 464 #*H Hemoglobin A1c 7.2 H Calcium Level 8.9 Magnesium Level 1.7 Total Bilirubin 1.0 Direct Bilirubin 0.00 Indirect Bilirubin 1.0 Aspartate Amino Transf (AST/SGOT) 23 Alanine Aminotransferase (ALT/SGPT) 43 Alkaline Phosphatase 66 Creatine Kinase 77 Creatine Kinase Index 3.3 Creatinine Kinase MB (Mass) 2.55 H Troponin I 0.219 *H B-Type Natriuretic Peptide 4720 H Total Protein 6.2 # Albumin 2.8 L Globulin 3.40 H Albumin/Globulin Ratio 0.82 Triglycerides Level 388 H Cholesterol Level 220 H LDL Cholesterol, Calculated 119 HDL Cholesterol 23 L Cholesterol/HDL Ratio 9.5 Thyroid Stimulating Hormone (TSH) 1.510 Bedside Glucose 492 *H 554 *H Medications Medications Current Medications Ondansetron HCl (Zofran Tab) 4 mg Q6H PRN PO NAUSEA AND/OR VOMITING; Start at 23:00 Nitroglycerin (Nitroglycerin (Sl Tab) 0.4 Mg) 1 tab Q5M PRN SL CHEST PAIN; Start 04/24/17 at 23:00 Docusate Sodium (Colace) 100 mg Q12H PRN PO CONSTIPATION; Start 04/24/17 at 23 :00 Bisacodyl (Dulcolax) 5 mg DAILY PRN PO CONSTIPATION; Start 04/24/17 at 23:00 Amlodipine Besylate (Norvasc) 5 mg DAILY PO Last administered on 04/25/17 08: 43; Admin Dose 5 MG; Start 04/25/17 at 09:00 Atorvastatin Calcium (Lipitor) 80 mg QHS PO ; Start 04/25/17 at 21:00 Ergocalciferol (Drisdol) 50,000 unit Mo@09 PO ; Start 04/24/17 at 23:00 Ferrous Sulfate (Ferrous Sulfate (Ec)) 325 mg DAILY PO Last administered on 08:41; Admin Dose 325 MG; Start 04/25/17 at 09:00 Insulin Glargine (Lantus) 52 unit QHS SC ; Start 04/25/17 at 21:00 Multivit/Ca Carb/ B Cmplx/FA/Prenat (Isabel-Brenda) 1 tab DAILY PO Last administered on 04/25/17 08:42; Admin Dose 1 TAB; Start 04/25/17 at 09:00 Pantoprazole (Protonix Tab) 40 mg DAILY@06 PO Last administered on 04/25/17 05:48; Admin Dose 40 MG; Start 04/25/17 at 06:00 Guaifenesin/ Dextromethorphan (Mucinex Dm) 1 tab BID PO Last administered on 05:02; Admin Dose 1 TAB; Start 04/25/17 at 03:15 Hydralazine HCl (Apresoline) 10 mg Q4H PRN IV ELEVATED BLOOD PRESSURE Last administered on 04/25/17 03:48; Admin Dose 10 MG; Start 04/25/17 at 03:30 Diagnostic Test (Pha) (Accu-Chek) 1 ea 02 XX ; Start 04/26/17 at 02:00 Citric Acid/ Sodium Citrate 30 ml 30 ml TID PO ; Start 04/25/17 at 13:00 Albumin Human (Albumin Human 25%) 50 ml @ 100 mls/hr BID IV ; Start 04/25/17 at 10:00; Stop 04/27/17 at 12:30 Furosemide (Lasix) 40 mg BID IV ; Start 04/25/17 at 10:00; Stop 04/27/17 at 12: 30 Procedures Procedures Sinus rhythm at 67 bpm with first-degree AV block, right bundle branch block, left anterior fascicular block, nonspecific ST abnormalities Dell De La Torre DO Apr 25, 2017 11:31
[2017-04-25] MEDS ORDERED: DEXTROSE 50% 50 ML SYRINGE IV PRN ×2 (12:00)
[2017-04-25] MEDS ORDERED: GLUCOSE GEL 15 GRAM TUBE PO PRN ×2 (12:00)
[2017-04-25] MEDS ORDERED: GLUCOSE GEL 15 GRAM TUBE BUCCAL PRN (12:00)
[2017-04-25] MEDS ORDERED: GLUCAGON 1 MG INJ IM PRN (12:00)
[2017-04-25] MEDS: FUROSEMIDE 40 MG INJ IV SCH ×2 (12:08→21:02)
--- NOTE | 2017-04-25 12:22 | RADRPT ---
PROCEDURE: Renal US. CLINICAL INDICATION: Acute kidney injury. TECHNIQUE: Multiple sonographic images of the kidneys and urinary bladder were obtained. The imag es were reviewed on a PACS workstation. COMPARISON: No prior studies are available for comparison. FINDINGS: The right kidney measures 11.2 cm. The left kidney measures 10.9 cm. There is no renal mass. There is no hydronephrosis. There is no renal calculus. Both kidneys are hyperechoic consistent with medical renal disease. Renal parenchymal thickness is normal bilaterally. The perirenal regions are normal with no fluid collection or mass. The urinary bladder is unremarkable. IMPRESSION: 1. Bilateral hyperechoic kidneys consistent with medical renal disease. 2. No hydronephrosis. 3. Otherwise normal renal ultrasound. RPTAT: QQ .Brian Riley MD, Date Time Electronically viewed and signed by .Brian Riley MD, on 04/25/2017 12:22 .R/
--- NOTE | 2017-04-25 12:51 | RADRPT ---
PROCEDURE: US bilateral lower extremity veins. CLINICAL INDICATION: Bilateral leg pain and swelling. History of deep venous thrombosis 5 years ag o. TECHNIQUE: Multiple longitudinal and transverse images of the bilateral lower extremity veins were obtained with stovall scale and color Doppler imaging. The common femoral vein, femoral vein, and popl iteal vein were evaluated. 2D grayscale measurements with compression sonography, color Doppler, and pulsed Doppler with augmentation. COMPARISON: No prior studies are available for comparison. FINDINGS: The right common femoral, femoral and popliteal veins are normally compressible throughout. Color f low demonstrates normal filling of the vessels. Normal waveforms are visualized and there is normal response to augmentation. The left common femoral and femoral veins are normally compressible throughout. Color flow demonstr ates normal filling of the vessels. Normal waveforms are visualized and there is normal response to augmentation. The left popliteal vein demonstrates partial flow and partial compressibility consis tent with probable chronic deep venous thrombosis. IMPRESSION: 1. Deep venous thrombosis of the left popliteal vein. This is probably chronic. Clinical correlatio n advised. 2. Otherwise normal bilateral lower extremity venous Doppler. RPTAT: QQ .Brian Riley MD, Date Time Electronically viewed and signed by .Brian Riley MD, on 04/25/2017 12:50 .R/
[2017-04-25] MEDS: METHYLPREDNISOLONE 40 MG INJ IV SCH ×2 (13:24→21:02)
[2017-04-25] MEDS: ASPIRIN 81 MG TAB PO SCH (13:24)
[2017-04-25] MEDS: NPH, HUMAN INSULIN ISOPHANE 3ML VIAL SC SCH ×2 (13:30→21:11)
[2017-04-25] MEDS: CITRIC ACID/SODIUM CITRATE 15 ML CUP PO SCH ×2 (13:50→21:02)
--- NOTE | 2017-04-25 15:05 | RADRPT ---
Echocardiogram Report Patient Name: ESTELLE NORTON Gender: Male Date: 1950 Study Date: 25-Apr-2017 Recreation Technician: Harsh Larson [facility] Location: [address] Ref. Physician: MARVIN ROTH Quality: Adequate Procedures: Transthoracic echocardiogram with complete 2D, M-Mode, and doppler examination. Indications: Elevated Troponins. 2D/M Mode Doppler Measurement Value Normal Ranges Measurement Value Normal Ranges LVIDd 2D 6.3 3.5 - 5.6 cm TAJ Vmax 1.8 cm2 LVIDs 2D 4.4 2.1 - 4.1 cm TAJ VTI 1.8 cm2 FS 2D 29.4 % AV Mean Deni 1.6 m/sec LVPWd 2D 1.3 0.6 - 1.1 cm AV Mean PG 13.0 mmHg IVSd 2D 1.4 0.6 - 1.1 cm AV Peak Deni 2.4 m/sec IVS/LVPW 2D 1.0 AV Peak PG 23.0 mmHg AoR Diam 2D 3.2 2.0 - 3.7 cm AV VTI 44.7 cm LA/Ao 2D 1 0 - 1 LVOT Mean Deni 0.9 m/sec EDV 2D 250.0 cm3 LVOT Mean PG 4.0 mmHg ESV 2D 88.1 cm3 LVOT Peak Deni 1.4 m/sec LA Dimen 2D 4.5 2.3 - 4.0 cm LVOT Peak PG 7.0 mmHg LVOT Diam 2.0 cm LVOT VTI 25.7 cm LVOT Area 3.1 cm2 MV E Peak Deni 1.2 m/sec MV A Peak Deni 1.4 m/sec MV E/A 0.8 MV Decel Time 109 msec MV E/A 0.8 TR Peak Deni 3.2 m/sec TR Peak PG 41.0 mmHg RVSP 44.0 mmHg Findings Left Ventricle: Normal left ventricular systolic function. Mild concentric left ventricular hypertrophy. Mild enlargement of left ventricle cavity. Ejection fraction is visually estimated at 55 %. Abnormal Diastolic Function. Right Ventricle: Normal right ventricular size. Normal right ventricular systolic function. Left Atrium: There is mild enlargement of left atrium. Right Atrium: The right atrium is normal in size. Mitral Valve: Mild mitral leaflet calcification. Mild mitral annular calcification. Trace mitral regurgitation. Aortic Valve: Aortic valve Max velocity 2.39 m/sec. Max PG 23.00 mmHg. Mean PG 13.00 mmHg. Aortic sclerosis without stenosis. Trace aortic valve regurgitation. Tricuspid Valve: Normal appearance of the tricuspid valve. Estimated peak PA systolic pressure 44 mmHg. There is mild tricuspid regurgitation. Pulmonic Valve: Pulmonic valve not well visualized. There is trace pulmonic regurgitation. Pericardium: Normal pericardium with no significant pericardial effusion. Aorta: Normal aortic root. IVC: Normal size and normal respiratory collapse consistent with normal right atrial pressure. Conclusions 1.Normal left ventricular systolic function. Mild concentric left ventricular hypertrophy. Mild enlargement of left ventricle cavity. Ejection fraction is visually estimated at 55 %. Abnormal Diastolic Function. 2.Normal right ventricular size. Normal right ventricular systolic function. 3.There is mild enlargement of left atrium. 4.The right atrium is normal in size. 5.Aortic sclerosis without stenosis. Trace aortic valve regurgitation. 6.Trace mitral regurgitation. 7.Estimated peak PA systolic pressure 44 mmHg. There is mild tricuspid regurgitation. 8.Normal pericardium with no significant pericardial effusion. Electronically Signed By: Dell De La Torre 25-Apr-2017 15:04:51 -0800 Patient Name: ESTELLE NORTON Study Date: 25-Apr-2017 [id number]
[2017-04-25 16:07] LABS: ADD UMIC YES; UR ASCORBIC ACID NEGATIVE (NEGATIVE); UR BILIRUBIN (Dip) NEGATIVE (NEGATIVE); UR BLOOD (Dip) 1+ mg/dL (NEGATIVE); UR CLARITY CLEAR (CLEAR); UR COLOR STRAW (YELLOW); UR GLUCOSE (Dip) 3+ mg/dL (NEGATIVE); UR KETONES (Dip) NEGATIVE (NEGATIVE); UR LEUKOCYTE ESTERASE (Dip) NEGATIVE Leu/ul (NEGATIVE); UR NITRITE (Dip) NEGATIVE (NEGATIVE); UR RBC 0 /HPF (0-5); UR SPECIFIC GRAVITY (Dip) 1.009 (1.003-1.030); UR TOTAL PROTEIN (Dip) 2+ mg/dl (NEGATIVE); UR UROBILINOGEN (Dip) NEGATIVE (NEGATIVE)
[2017-04-25] MEDS ORDERED: INSULIN ASPART [NOVOLOG] 3 ML PEN SC ONE ×2 (18:59→21:30)
[2017-04-25] MEDS: ATORVASTATIN 80 MG TAB PO SCH (21:03)
[2017-04-25] MEDS: INSULIN GLARGINE [LANtus] 3 ML PEN SC SCH (21:11)
[2017-04-25] MEDS: ERGOCALCIFEROL 50,000 UNIT CAP PO SCH (21:57)
[2017-04-26] VITALS (11 sets, daily range): BP systolic 148–166; BP diastolic 67–74; PULSE 63–79; RESP 21–22
[2017-04-26] MEDS ORDERED: INSULIN ASPART [NOVOLOG] 3 ML PEN SC ONE ×3 (01:00→07:00)
[2017-04-26] MEDS: ALBUTEROL/IPRATROPIUM (NEB) 3 ML AMP HHN SCH ×6 (01:31→22:45)
[2017-04-26] MEDS: ACCU-CHEK XX SCH (02:00)
[2017-04-26] MEDS ORDERED: SOD CHLORIDE 0.9% 250 ML IV ONE (03:30)
[2017-04-26] MEDS: PANTOPRAZOLE (EC) 40 MG TAB PO SCH (06:31)
[2017-04-26 06:38] LABS: MAGNESIUM 1.8 mg/dl (1.7-2.5)
[2017-04-26] MEDS: METHYLPREDNISOLONE 40 MG INJ IV SCH (06:38)
[2017-04-26 06:43] LABS: TROPONIN-I 0.109 ng/ml (0.00-0.12)
[2017-04-26 07:02] LABS: ALBUMIN 3.3 g/dl (3.3-4.9); ALBUMIN/GLOBULIN RATIO 0.91; BILIRUBIN,INDIRECT 1.4 mg/dl (0-1.1); BILIRUBIN,TOTAL 1.4 mg/dl (0.2-1.3); CALCIUM 9.1 mg/dl (8.4-10.2); CREATININE 5.85 mg/dl (0.61-1.24); TOTAL PROTEIN 6.9 g/dl (6.1-8.1)
--- NOTE | 2017-04-26 07:28 | PQ ---
Date/Time of Note Date/Time of Note DATE: 04/26/17 TIME: 07:23 Physician Query Documentation Clarification Dear , A review of the medical record found a need for documentation clarification. w/ progress note - Acute decompensated heart failure Echo = 55% EF , diastolic dysfunction BNp = 4720 Med = Furosemide Please clarify( if known ) the type of CHF. To facilitate accurate and complete coding, please nabeel ( x ) the suspected diagnosis that apply: ( X ) Acute on Chronic Diastolic (Preserved EF) Heart Failure ( ICD10 I50.33 ) -----see progress note ( ) Acute Systolic (Reduced EF) Heart Failure ( ICD10 I50.21 ) ( ) Acute Diastolic (Preserved EF) Heart Failure ( ICD10 I50.31 ) ( ) Acute on Chronic Systolic (Reduced EF) Heart Failure ( ICD10 I50.23 ) ( ) Others Please provide your response by clicking edit document, making your choice ( x ), click ok/save and finally click sign. You may also document your response on your progress notes. Thank you for your time. Rahat Berrios RN, BSN, CCS, CCDS, CDIP Clinical Superintendent Pressure Health Information Management, CDI and Coding Services [phone] Room # 1525 - [address]~ [id number] RAHAT BERRIOS Apr 26, 2017 07:28
[2017-04-26] MEDS: INSULIN ASPART [NOVOLOG] 3 ML PEN SC SCH ×7 (08:33→21:00)
--- NOTE | 2017-04-26 08:46 | PN ---
Date/Time of Note Date/Time of Note DATE: 04/26/17 TIME: 08:45 Assessment/Plan VTE Prophylaxis VTE Prophylaxis Intervention: SCD's Lines/Catheters IV Catheter Type (from [facility]): Mid Line Urinary Cath still in place: No Assessment/Plan Assessment/Plan Volume overload Acute kidney injury with history of CKD Acute decompensated congestive heart failure Diabetes CAD with history of PCI over 10 years ago Hypertension Dyslipidemia History of DVT, on anticoagulation -Patient with evidence of volume overload, pulmonary vascular congestion and acute kidney injury with hyperkalemia. Patient being seen by nephrology. Diuretics being managed by our nephrology colleagues. Patient is also on Xarelto for anticoagulation, and discussion with pharmacy staff, creatinine clearance is 12. This would prevent the use of Xarelto. Would DC anticoagulation at the current time as well as given patient might be started on hemodialysis and will need to catheter placement, and place on DVT prophylaxis, check lower extremity venous Dopplers given history of DVT. Continue statin therapy if no contraindication. Subjective 24 Hr Interval Summary Free Text/Dictation The patient with no ardiac symptms Exam/Review of Systems Vital Signs Vitals Vital Signs Date Time Temp Pulse Resp B/P Pulse Ox O2 Delivery O2 Flow Rate FiO2 04/26/17 08:11 78 18 94 Nasal Cannula 3.0 04/26/17 07:31 97.3 166/74 Intake and Output 04/25/17 04/25/17 04/26/17 15:00 23:00 07:00 Intake Total 50 ml 320 ml Balance 50 ml 320 ml Results Result Diagram: 04/25/17 0632 04/26/17 0516 Results 24 hrs Laboratory Tests Test 04/25/17 10:12 04/25/17 12:30 04/25/17 13:21 04/25/17 17:33 Bedside Glucose 554 *H > 595 *H 594 *H Urine Eosinophils % 0.0 Test 04/25/17 18:51 04/25/17 20:59 04/25/17 23:44 04/26/17 03:11 Bedside Glucose 559 *H 510 *H 535 *H 486 *H Test 04/26/17 05:16 04/26/17 06:32 04/26/17 08:30 White Blood Count Pending Red Blood Count Pending Hemoglobin Pending Hematocrit Pending Mean Corpuscular Volume Pending Mean Corpuscular Hemoglobin Pending Mean Corpuscular Hemoglobin Concent Pending Red Cell Distribution Width Pending Platelet Count Pending Mean Platelet Volume Pending Sodium Level 137 Potassium Level 4.0 # Chloride Level 99 Carbon Dioxide Level 23 Anion Gap 19 H Blood Urea Nitrogen 107 H Creatinine 5.85 H Glucose Level 407 *H Calcium Level 9.1 Phosphorus Level 4.0 Magnesium Level 1.8 Total Bilirubin 1.4 H Direct Bilirubin 0.00 Indirect Bilirubin 1.4 H Aspartate Amino Transf (AST/SGOT) 17 Alanine Aminotransferase (ALT/SGPT) 35 Alkaline Phosphatase 58 Troponin I 0.109 Total Protein 6.9 Albumin 3.3 Globulin 3.60 H Albumin/Globulin Ratio 0.91 Bedside Glucose 350 H 279 H Medications Medications Current Medications Ondansetron HCl (Zofran Tab) 4 mg Q6H PRN PO NAUSEA AND/OR VOMITING; Start at 23:00 Nitroglycerin (Nitroglycerin (Sl Tab) 0.4 Mg) 1 tab Q5M PRN SL CHEST PAIN; Start 04/24/17 at 23:00 Docusate Sodium (Colace) 100 mg Q12H PRN PO CONSTIPATION; Start 04/24/17 at 23 :00 Bisacodyl (Dulcolax) 5 mg DAILY PRN PO CONSTIPATION; Start 04/24/17 at 23:00 Amlodipine Besylate (Norvasc) 5 mg DAILY PO Last administered on 04/25/17 08: 43; Admin Dose 5 MG; Start 04/25/17 at 09:00 Atorvastatin Calcium (Lipitor) 80 mg QHS PO Last administered on 04/25/17 21: 03; Admin Dose 80 MG; Start 04/25/17 at 21:00 Ergocalciferol (Drisdol) 50,000 unit Mo@09 PO Last administered on 04/25/17 21:57; Admin Dose 50,000 UNIT; Start 04/24/17 at 23:00 Ferrous Sulfate (Ferrous Sulfate (Ec)) 325 mg DAILY PO Last administered on 08:41; Admin Dose 325 MG; Start 04/25/17 at 09:00 Insulin Glargine (Lantus) 52 unit QHS SC Last administered on 04/25/17 21:11 ; Admin Dose 52 UNIT; Start 04/25/17 at 21:00 Multivit/Ca Carb/ B Cmplx/FA/Prenat (Isabel-Brenda) 1 tab DAILY PO Last administered on 04/25/17 08:42; Admin Dose 1 TAB; Start 04/25/17 at 09:00 Pantoprazole (Protonix Tab) 40 mg DAILY@06 PO Last administered on 04/26/17 06 :31; Admin Dose 40 MG; Start 04/25/17 at 06:00 Guaifenesin/ Dextromethorphan (Mucinex Dm) 1 tab BID PO Last administered on 21:03; Admin Dose 1 TAB; Start 04/25/17 at 03:15 Hydralazine HCl (Apresoline) 10 mg Q4H PRN IV ELEVATED BLOOD PRESSURE Last administered on 04/25/17 15:44; Admin Dose 10 MG; Start 04/25/17 at 03:30 Diagnostic Test (Pha) (Accu-Chek) 1 ea 02 XX ; Start 04/26/17 at 02:00 Citric Acid/ Sodium Citrate 30 ml 30 ml TID PO Last administered on 04/25/17 21:02; Admin Dose 30 ML; Start 04/25/17 at 13:00 Albumin Human (Albumin Human 25%) 50 ml @ 100 mls/hr BID IV Last administered on 04/25/17 21:57; Admin Dose 100 MLS/HR; Start 04/25/17 at 10:00; Stop 04/27 at 12:30 Furosemide (Lasix) 40 mg BID IV Last administered on 04/25/17 21:02; Admin Dose 40 MG; Start 04/25/17 at 10:00; Stop 04/27/17 at 12:30 Aspirin (Aspirin) 81 mg DAILY PO Last administered on 04/25/17 13:24; Admin Dose 81 MG; Start 04/25/17 at 12:00 Heparin Sodium (Porcine) (Heparin (5000 Units/0.5 ml)) 5,000 unit BID SC ; Start 04/26/17 at 09:00 Miscellaneous Information 1 ea NOTE XX ; Start 04/25/17 at 12:00 Glucose (Glutose) 15 gm Q15M PRN PO DECREASED GLUCOSE; Start 04/25/17 at 12:00 Glucose (Glutose) 22.5 gm Q15M PRN PO DECREASED GLUCOSE; Start 04/25/17 at 12: 00 Dextrose (D50w Syringe) 25 ml Q15M PRN IV DECREASED GLUCOSE; Start 04/25/17 at 12:00 Dextrose (D50w Syringe) 50 ml Q15M PRN IV DECREASED GLUCOSE; Start 04/25/17 at 12:00 Glucagon (Glucagen) 1 mg Q15M PRN IM DECREASED GLUCOSE; Start 04/25/17 at 12: 00 Glucose (Glutose) 15 gm Q15M PRN BUCCAL DECREASED GLUCOSE; Start 04/25/17 at 12:00 RONN BAZAN MD Apr 26, 2017 08:46
[2017-04-26 09:05] LABS: ABNORMAL IP MESSAGE 1; MEAN PLATELET VOLUME 12.1 fl (7.4-10.4); PLATELET COUNT 447 10^3/UL (140-415); POSITIVE DIFF @See below; WHITE BLOOD COUNT 14.7 10^3/ul (4.8-10.8)
--- NOTE | 2017-04-26 09:21 | CONS ---
Date/Time of Note Date/Time of Note DATE: 04/26/17 TIME: 09:18 Assessment/Plan Assessment/Plan Chief Complaint/Hosp Course 66 M with PMHx of HTN, DM II, HL, H/o CKD due to diabetic nehropathy as per patient, he follows with outside physician who doesn't come here. pt presented with SOB, Congestion and worsenign renal failure, he is also noted to have Hyperkalemia with K 6.0 and decreased urine output . Problems: Additional Assessment/Plan 1. Oliguric TROY on CKD III/IV Due to possible Cardiorenal syndrome with worsening renal failue due to diabetic nephropathy- failed outpatient PO lasix therapy 2. 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 Acute hyperkalemia due to TROY on CKD 4. Metabolic acidosis due to worsenign renal failure 5. H/ CAD S/p previous coronary angiogram as per patient 6. Hypertension 7. Type II DM 8. 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 - they agreed about plan for HD initiation Consultation Date/Type/Reason Admit Date/Time Apr 24, 2017 at 19:05 Initial Consult Date 04/25/17 Type of Consultation: NEPHROLOGY Referring Provider: MARVIN ROTH 24 HR Interval Summary Free Text/Dictation pt has been on IV lasix + albumin, still c/o nausea, did not eat well Exam/Review of Systems Vital Signs Vitals Vital Signs Date Time Temp Pulse Resp B/P Pulse Ox O2 Delivery O2 Flow Rate FiO2 04/26/17 08:11 78 18 94 Nasal Cannula 3.0 04/26/17 07:31 97.3 166/74 Intake and Output 04/25/17 04/25/17 04/26/17 15:00 23:00 07:00 Intake Total 50 ml 320 ml Balance 50 ml 320 ml Results Result Diagram: 04/25/17 0632 04/26/17 0516 Results 24 hrs Laboratory Tests Test 04/25/17 10:12 04/25/17 12:30 04/25/17 13:21 04/25/17 17:33 Bedside Glucose 554 *H > 595 *H 594 *H Urine Eosinophils % 0.0 Test 04/25/17 18:51 04/25/17 20:59 04/25/17 23:44 04/26/17 03:11 Bedside Glucose 559 *H 510 *H 535 *H 486 *H Test 04/26/17 05:16 04/26/17 06:32 04/26/17 08:30 04/26/17 08:45 Sodium Level 137 Potassium Level 4.0 # Chloride Level 99 Carbon Dioxide Level 23 Anion Gap 19 H Blood Urea Nitrogen 107 H Creatinine 5.85 H Glucose Level 407 *H Calcium Level 9.1 Phosphorus Level 4.0 Magnesium Level 1.8 Total Bilirubin 1.4 H Direct Bilirubin 0.00 Indirect Bilirubin 1.4 H Aspartate Amino Transf (AST/SGOT) 17 Alanine Aminotransferase (ALT/SGPT) 35 Alkaline Phosphatase 58 Troponin I 0.109 Total Protein 6.9 Albumin 3.3 Globulin 3.60 H Albumin/Globulin Ratio 0.91 Bedside Glucose 350 H 279 H White Blood Count Pending Red Blood Count Pending Hemoglobin Pending Hematocrit Pending Mean Corpuscular Volume Pending Mean Corpuscular Hemoglobin Pending Mean Corpuscular Hemoglobin Concent Pending Red Cell Distribution Width Pending Platelet Count Pending Mean Platelet Volume Pending Medications Medications Current Medications Ondansetron HCl (Zofran Tab) 4 mg Q6H PRN PO NAUSEA AND/OR VOMITING; Start at 23:00 Nitroglycerin (Nitroglycerin (Sl Tab) 0.4 Mg) 1 tab Q5M PRN SL CHEST PAIN; Start 04/24/17 at 23:00 Docusate Sodium (Colace) 100 mg Q12H PRN PO CONSTIPATION; Start 04/24/17 at 23 :00 Bisacodyl (Dulcolax) 5 mg DAILY PRN PO CONSTIPATION; Start 04/24/17 at 23:00 Amlodipine Besylate (Norvasc) 5 mg DAILY PO Last administered on 04/25/17t 08: 43; Admin Dose 5 MG; Start 04/25/17 at 09:00 Atorvastatin Calcium (Lipitor) 80 mg QHS PO Last administered on 04/25/17 21: 03; Admin Dose 80 MG; Start 04/25/17 at 21:00 Ergocalciferol (Drisdol) 50,000 unit Mo@09 PO Last administered on 04/25/17 21:57; Admin Dose 50,000 UNIT; Start 04/24/17 at 23:00 Ferrous Sulfate (Ferrous Sulfate (Ec)) 325 mg DAILY PO Last administered on 08:41; Admin Dose 325 MG; Start 04/25/17 at 09:00 Insulin Glargine (Lantus) 52 unit QHS SC Last administered on 04/25/17 21:11 ; Admin Dose 52 UNIT; Start 04/25/17 at 21:00 Multivit/Ca Carb/ B Cmplx/FA/Prenat (Isabel-Brenda) 1 tab DAILY PO Last administered on 04/25/17 08:42; Admin Dose 1 TAB; Start 04/25/17 at 09:00 Pantoprazole (Protonix Tab) 40 mg DAILY@06 PO Last administered on 04/26/17 06 :31; Admin Dose 40 MG; Start 04/25/17 at 06:00 Guaifenesin/ Dextromethorphan (Mucinex Dm) 1 tab BID PO Last administered on 21:03; Admin Dose 1 TAB; Start 04/25/17 at 03:15 Hydralazine HCl (Apresoline) 10 mg Q4H PRN IV ELEVATED BLOOD PRESSURE Last administered on 04/25/17 15:44; Admin Dose 10 MG; Start 04/25/17 at 03:30 Diagnostic Test (Pha) (Accu-Chek) 1 ea 02 XX ; Start 04/26/17 at 02:00 Citric Acid/ Sodium Citrate 30 ml 30 ml TID PO Last administered on 04/25/17 21:02; Admin Dose 30 ML; Start 04/25/17 at 13:00 Albumin Human (Albumin Human 25%) 50 ml @ 100 mls/hr BID IV Last administered on 04/25/17 21:57; Admin Dose 100 MLS/HR; Start 04/25/17 at 10:00; Stop 04/27 at 12:30 Aspirin (Aspirin) 81 mg DAILY PO Last administered on 04/25/17 13:24; Admin Dose 81 MG; Start 04/25/17 at 12:00 Heparin Sodium (Porcine) (Heparin (5000 Units/0.5 ml)) 5,000 unit BID SC ; Start 04/26/17 at 09:00 Miscellaneous Information 1 ea NOTE XX ; Start 04/25/17 at 12:00 Glucose (Glutose) 15 gm Q15M PRN PO DECREASED GLUCOSE; Start 04/25/17 at 12:00 Glucose (Glutose) 22.5 gm Q15M PRN PO DECREASED GLUCOSE; Start 04/25/17 at 12: 00 Dextrose (D50w Syringe) 25 ml Q15M PRN IV DECREASED GLUCOSE; Start 04/25/17 at 12:00 Dextrose (D50w Syringe) 50 ml Q15M PRN IV DECREASED GLUCOSE; Start 04/25/17 at 12:00 Glucagon (Glucagen) 1 mg Q15M PRN IM DECREASED GLUCOSE; Start 04/25/17 at 12: 00 Glucose (Glutose) 15 gm Q15M PRN BUCCAL DECREASED GLUCOSE; Start 04/25/17 at 12:00 RAQUEL MCDOWELL MD Apr 26, 2017 09:21
[2017-04-26] MEDS: ALBUMIN HUMAN 25% 50 ML IV SCH ×2 (09:40→21:35)
[2017-04-26] MEDS: CITRIC ACID/SODIUM CITRATE 15 ML CUP PO SCH ×3 (09:44→21:24)
[2017-04-26] MEDS: ASPIRIN 81 MG TAB PO SCH (09:44)
[2017-04-26] MEDS: MULTIVIT/CA CARB/B CMPLX/FA TAB PO SCH (09:44)
[2017-04-26] MEDS: FERROUS SULFATE (EC) 325 MG TAB PO SCH (09:44)
[2017-04-26] MEDS: GUAIFENESIN/DM (SR) TAB PO SCH ×2 (09:44→21:24)
[2017-04-26] MEDS: AMLODIPINE 5 MG TAB PO SCH (09:45)
[2017-04-26] MEDS: HEPARIN 5,000 UNIT/0.5 ML VIAL SC SCH ×2 (09:51→21:41)
[2017-04-26 10:21] LABS: HEMOGLOBIN 9.4 g/dl (14.0-18.0); MEAN CORPUSCULAR HEMOGLOBIN 32.6 pg (29.0-33.0); MEAN CORPUSCULAR HGB CONC 35.6 g/dl (32.0-37.0); MEAN CORPUSCULAR VOLUME 91.7 fl (82.0-101.0); RED BLOOD COUNT 2.88 10^6/ul (4.70-6.10)
[2017-04-26 10:23] LABS: HEMATOCRIT 26.4 % (42.0-52.0)
[2017-04-26 10:30] LABS: ANISOCYTOSIS 1+ (0-0); MONOCYTES % (M) 4 % (0-11); PLATELET ESTIMATE NORMAL; POIKILOCYTOSIS 1+ (0-0); POLYCHROMASIA 3+ (0-0)
[2017-04-26] MEDS: FUROSEMIDE 20 MG INJ IV SCH ×2 (10:30→21:29)
--- NOTE | 2017-04-26 10:32 | PN ---
Date/Time of Note Date/Time of Note DATE: 04/26/17 TIME: 10:27 Assessment/Plan VTE Prophylaxis VTE Prophylaxis Intervention: heparin Lines/Catheters IV Catheter Type (from [facility]): Mid Line Urinary Cath still in place: No Assessment/Plan Chief Complaint/Hosp Course 1. Acute respiratory failure. Hypoxic. Most probably secondary to underlying fluid overload. Continue diuresis as per nephrology. Continue inhaled bronchodilators. Continue supplemental oxygen. 2. NSTEMI. Most probably type II event in the setting of underlying worsening renal function. The patient denies any chest pain. 3. Acute on chronic congestive heart failure exacerbation. Diastolic dysfunction. Continue diuresis while carefully watching the patient's renal function. 4. Pulmonary hypertension. PA systolic pressure 44 mmHg. Continue supplemental oxygen. 5. CAD. Status post PTCA in the past. Continue aspirin. 6. Metabolic acidosis. Most probably secondary to worsening renal function. On Bicitra as per nephrology. 7. Dyslipidemia. Continue statins. 8. Diabetes mellitus type 2. Continue sliding scale insulin along with basal insulin and pre-meal insulin. Adjust insulin dosing to obtain optimal blood sugar control. 9. Essential hypertension. Continue antihypertensives. 10. DVT of the left popliteal vein. The patient has prior history of DVT of lower extremity with the details unclear and he was taking Xarelto at home. This has been discontinued because of worsening renal function. Anticoagulation being held for possible HD access placement. 11. Acute on chronic chronic kidney disease. The patient being followed by nephrology. Worsening. 12. Fluids, electrolytes, and nutrition. Carbohydrate controlled, low- cholesterol diet. 13. DVT prophylaxis. Subcutaneous heparin. 14. Plan. Continue diuresis while carefully watching the patient's renal function. IV steroids has been discontinued because of high blood sugars. The patient was seen in collaboration with Dr. Beltran. Problems: Subjective 24 Hr Interval Summary Free Text/Dictation Feeling "so-so.' Exam/Review of Systems Vital Signs Vitals Vital Signs Date Time Temp Pulse Resp B/P Pulse Ox O2 Delivery O2 Flow Rate FiO2 04/26/17 08:11 78 18 94 Nasal Cannula 3.0 04/26/17 07:31 97.3 166/74 Intake and Output 04/25/17 04/25/17 04/26/17 14:59 22:59 06:59 Intake Total 50 ml 320 ml Balance 50 ml 320 ml Exam General: Obese 66 year-old male lying in bed in mild respiratory distress. HEENT: Normocephalic, atraumatic. Eyes: Anicteric sclerae, conjunctivae clear. ENT: Nasal septum midline, oral mucosa moist. Neck supple, JVD noticed. Respiratory: Bilaterally diminished breath sounds. Minimal use of accessory muscles of respiration. Cardiovascular: S1, S2 heard. Regular rate and rhythm. Abdomen: Soft, nontender, and nondistended. Bowel sounds positive in all 4 quadrants. Genitourinary: Deferred. Extremities: No cyanosis. B/L trace pedal edema. Peripheral pulses palpable. Neurologic: Cranial nerves II through XII grossly intact. The patient is awake, alert, and oriented. Skin: Normal skin turgor. No skin rashes. Results Result Diagram: 04/25/17 0632 04/26/17 0516 Results 24 hrs Laboratory Tests Test 04/25/17 12:30 04/25/17 13:21 04/25/17 17:33 04/25/17 18:51 Urine Eosinophils % 0.0 Bedside Glucose > 595 *H 594 *H 559 *H Test 04/25/17 20:59 04/25/17 23:44 04/26/17 03:11 04/26/17 05:16 Bedside Glucose 510 *H 535 *H 486 *H Sodium Level 137 Potassium Level 4.0 # Chloride Level 99 Carbon Dioxide Level 23 Anion Gap 19 H Blood Urea Nitrogen 107 H Creatinine 5.85 H Glucose Level 407 *H Calcium Level 9.1 Phosphorus Level 4.0 Magnesium Level 1.8 Total Bilirubin 1.4 H Direct Bilirubin 0.00 Indirect Bilirubin 1.4 H Aspartate Amino Transf (AST/SGOT) 17 Alanine Aminotransferase (ALT/SGPT) 35 Alkaline Phosphatase 58 Troponin I 0.109 Total Protein 6.9 Albumin 3.3 Globulin 3.60 H Albumin/Globulin Ratio 0.91 Test 04/26/17 06:32 04/26/17 08:30 04/26/17 08:45 Bedside Glucose 350 H 279 H White Blood Count 14.7 #H Red Blood Count 2.88 L Hemoglobin 9.4 L Hematocrit 26.4 L Mean Corpuscular Volume 91.7 Mean Corpuscular Hemoglobin 32.6 Mean Corpuscular Hemoglobin Concent 35.6 Red Cell Distribution Width Platelet Count 447 #H Mean Platelet Volume 12.1 H Neutrophils % Lymphocytes % Monocytes % Eosinophils % Basophils % Nucleated Red Blood Cells % 0.0 Neutrophils # Lymphocytes # Monocytes # Eosinophils # Basophils # Nucleated Red Blood Cells # Medications Medications Current Medications Ondansetron HCl (Zofran Tab) 4 mg Q6H PRN PO NAUSEA AND/OR VOMITING; Start at 23:00 Nitroglycerin (Nitroglycerin (Sl Tab) 0.4 Mg) 1 tab Q5M PRN SL CHEST PAIN; Start 04/24/17 at 23:00 Docusate Sodium (Colace) 100 mg Q12H PRN PO CONSTIPATION; Start 04/24/17 at 23 :00 Bisacodyl (Dulcolax) 5 mg DAILY PRN PO CONSTIPATION; Start 04/24/17 at 23:00 Amlodipine Besylate (Norvasc) 5 mg DAILY PO Last administered on 04/26/17 09: 45; Admin Dose 5 MG; Start 04/25/17 at 09:00 Atorvastatin Calcium (Lipitor) 80 mg QHS PO Last administered on 04/25/17 21: 03; Admin Dose 80 MG; Start 04/25/17 at 21:00 Ergocalciferol (Drisdol) 50,000 unit Mo@09 PO Last administered on 04/25/17 21:57; Admin Dose 50,000 UNIT; Start 04/24/17 at 23:00 Ferrous Sulfate (Ferrous Sulfate (Ec)) 325 mg DAILY PO Last administered on 09:44; Admin Dose 325 MG; Start 04/25/17 at 09:00 Insulin Glargine (Lantus) 52 unit QHS SC Last administered on 04/25/17 21:11 ; Admin Dose 52 UNIT; Start 04/25/17 at 21:00 Multivit/Ca Carb/ B Cmplx/FA/Prenat (Isabel-Brenda) 1 tab DAILY PO Last administered on 04/26/17 09:44; Admin Dose 1 TAB; Start 04/25/17 at 09:00 Pantoprazole (Protonix Tab) 40 mg DAILY@06 PO Last administered on 04/26/17 06 :31; Admin Dose 40 MG; Start 04/25/17 at 06:00 Guaifenesin/ Dextromethorphan (Mucinex Dm) 1 tab BID PO Last administered on 12 /1/17at 09:44; Admin Dose 1 TAB; Start 04/25/17 at 03:15 Hydralazine HCl (Apresoline) 10 mg Q4H PRN IV ELEVATED BLOOD PRESSURE Last administered on 04/25/17 15:44; Admin Dose 10 MG; Start 04/25/17 at 03:30 Diagnostic Test (Pha) (Accu-Chek) 1 ea 02 XX ; Start 04/26/17 at 02:00 Citric Acid/ Sodium Citrate 30 ml 30 ml TID PO Last administered on 04/26/17 09:44; Admin Dose 30 ML; Start 04/25/17 at 13:00 Albumin Human (Albumin Human 25%) 50 ml @ 100 mls/hr BID IV Last administered on 04/26/17 09:40; Admin Dose 100 MLS/HR; Start 04/25/17 at 10:00; Stop at 12:30 Aspirin (Aspirin) 81 mg DAILY PO Last administered on 04/26/17 09:44; Admin Dose 81 MG; Start 04/25/17 at 12:00 Heparin Sodium (Porcine) (Heparin (5000 Units/0.5 ml)) 5,000 unit BID SC Last administered on 04/26/17 09:51; Admin Dose 5,000 UNIT; Start 04/26/17 at 09:00 Miscellaneous Information 1 ea NOTE XX ; Start 04/25/17 at 12:00 Glucose (Glutose) 15 gm Q15M PRN PO DECREASED GLUCOSE; Start 04/25/17 at 12:00 Glucose (Glutose) 22.5 gm Q15M PRN PO DECREASED GLUCOSE; Start 04/25/17 at 12: 00 Dextrose (D50w Syringe) 25 ml Q15M PRN IV DECREASED GLUCOSE; Start 04/25/17 at 12:00 Dextrose (D50w Syringe) 50 ml Q15M PRN IV DECREASED GLUCOSE; Start 04/25/17 at 12:00 Glucagon (Glucagen) 1 mg Q15M PRN IM DECREASED GLUCOSE; Start 04/25/17 at 12: 00 Glucose (Glutose) 15 gm Q15M PRN BUCCAL DECREASED GLUCOSE; Start 04/25/17 at 12:00 Furosemide (Lasix) 20 mg BID IV ; Start 04/26/17 at 09:00 NANY PRIEST NP Apr 26, 2017 10:32
[2017-04-26] MEDS ORDERED: VANCOMYCIN IV PER PHARMACY XX SCH (14:00)
[2017-04-26] MEDS ORDERED: VANCOMYCIN 2 GM in SOD CHLORIDE 0.9% 500 ML IVPB SCH (16:30)
--- NOTE | 2017-04-26 16:32 | CONS ---
Date/Time of Note Date/Time of Note DATE: 04/26/17 TIME: 16:29 Assessment/Plan Assessment/Plan Chief Complaint/Hosp Course 66 M with PMHx of HTN, DM II, HL, H/o CKD due to diabetic nehropathy as per patient, he follows with outside physician who doesn't come here. pt presented with SOB, Congestion and worsenign renal failure, he is also noted to have Hyperkalemia with K 6.0 and decreased urine output . Problems: Additional Assessment/Plan 1. Oliguric TROY on CKD III/IV Due to possible Cardiorenal syndrome with worsening renal failue due to diabetic nephropathy- failed outpatient PO lasix therapy 2. 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 Acute hyperkalemia due to TROY on CKD 4. Metabolic acidosis due to worsenign renal failure 5. H/ CAD S/p previous coronary angiogram as per patient 6. Hypertension 7. Type II DM 8. 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 pick up operator - who agreed with initiation of HD, pt has recurrent fluid overload episodes and Failed outpatient PO lasix stopped valsartan/HCTZ pt is on xarelto for anticoagulation d/w with patient at bedside about his very low renal function and possible need of dialysis.- also discussed with daughter- she is planning to come to hospital in AM to discuss about HD initiation Consultation Date/Type/Reason Admit Date/Time Apr 24, 2017 at 19:05 Initial Consult Date 04/25/17 Type of Consultation: NEPHROLOGY Referring Provider: MARVIN ROTH Exam/Review of Systems Vital Signs Vitals Vital Signs Date Time Temp Pulse Resp B/P Pulse Ox O2 Delivery O2 Flow Rate FiO2 04/26/17 16:05 65 04/26/17 15:33 98.3 22 161/70 94 04/26/17 12:23 Nasal Cannula 3.0 Intake and Output 04/25/17 04/25/17 04/26/17 15:00 23:00 07:00 Intake Total 50 ml 320 ml Balance 50 ml 320 ml Exam Respiratory: bilateral crackles diminished breath sounds, normal air movement Cardiovascular: nl pulses, regular rate and rhythm Gastrointestinal: non-tender, soft Musculoskeletal: muscle weakness, nl extremities to inspection, swelling Extremities: calf tenderness, normal pulses 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: HIDES INSPECTOR II-XII intact, nl mental status, nl speech, nl strength Results Result Diagram: 04/26/17 0845 04/26/17 0516 Results 24 hrs Laboratory Tests Test 04/25/17 17:33 04/25/17 18:51 04/25/17 20:59 04/25/17 23:44 Bedside Glucose 594 *H 559 *H 510 *H 535 *H Test 04/26/17 03:11 04/26/17 05:16 04/26/17 06:32 04/26/17 08:30 Bedside Glucose 486 *H 350 H 279 H Sodium Level 137 Potassium Level 4.0 # Chloride Level 99 Carbon Dioxide Level 23 Anion Gap 19 H Blood Urea Nitrogen 107 H Creatinine 5.85 H Glucose Level 407 *H Calcium Level 9.1 Phosphorus Level 4.0 Magnesium Level 1.8 Total Bilirubin 1.4 H Direct Bilirubin 0.00 Indirect Bilirubin 1.4 H Aspartate Amino Transf (AST/SGOT) 17 Alanine Aminotransferase (ALT/SGPT) 35 Alkaline Phosphatase 58 Troponin I 0.109 Total Protein 6.9 Albumin 3.3 Globulin 3.60 H Albumin/Globulin Ratio 0.91 Test 04/26/17 08:45 04/26/17 12:20 White Blood Count 14.7 #H Red Blood Count 2.88 L Hemoglobin 9.4 L Hematocrit 26.4 L Mean Corpuscular Volume 91.7 Mean Corpuscular Hemoglobin 32.6 Mean Corpuscular Hemoglobin Concent 35.6 Red Cell Distribution Width Platelet Count 447 #H Mean Platelet Volume 12.1 H Neutrophils % Segmented Neutrophils % (Manual) 88 H Band Neutrophils % (Manual) 2 Lymphocytes % Lymphocytes % (Manual) 6 L Monocytes % Monocytes % (Manual) 4 Eosinophils % Basophils % Nucleated Red Blood Cells % 0.0 Neutrophils # Neutrophils # (Manual) 13.0 H Band Neutrophils # 0.2 Absolute Lymphocytes (Manual) 0.8 Lymphocytes # Monocytes # Absolute Monocytes (Manual) 0.5 Eosinophils # Basophils # Nucleated Red Blood Cells # Platelet Estimate NORMAL Polychromasia 3+ Poikilocytosis 1+ Anisocytosis 1+ Bedside Glucose 222 H Medications Medications Current Medications Ondansetron HCl (Zofran Tab) 4 mg Q6H PRN PO NAUSEA AND/OR VOMITING; Start at 23:00 Nitroglycerin (Nitroglycerin (Sl Tab) 0.4 Mg) 1 tab Q5M PRN SL CHEST PAIN; Start 04/24/17 at 23:00 Docusate Sodium (Colace) 100 mg Q12H PRN PO CONSTIPATION; Start 04/24/17 at 23 :00 Bisacodyl (Dulcolax) 5 mg DAILY PRN PO CONSTIPATION; Start 04/24/17 at 23:00 Amlodipine Besylate (Norvasc) 5 mg DAILY PO Last administered on 04/26/17 09: 45; Admin Dose 5 MG; Start 04/25/17 at 09:00 Atorvastatin Calcium (Lipitor) 80 mg QHS PO Last administered on 04/25/17 21: 03; Admin Dose 80 MG; Start 04/25/17 at 21:00 Ergocalciferol (Drisdol) 50,000 unit Mo@09 PO Last administered on 04/25/17 21:57; Admin Dose 50,000 UNIT; Start 04/24/17 at 23:00 Ferrous Sulfate (Ferrous Sulfate (Ec)) 325 mg DAILY PO Last administered on 09:44; Admin Dose 325 MG; Start 04/25/17 at 09:00 Insulin Glargine (Lantus) 52 unit QHS SC Last administered on 04/25/17 21:11 ; Admin Dose 52 UNIT; Start 04/25/17 at 21:00 Multivit/Ca Carb/ B Cmplx/FA/Prenat (Isabel-Brenda) 1 tab DAILY PO Last administered on 04/26/17 09:44; Admin Dose 1 TAB; Start 04/25/17 at 09:00 Pantoprazole (Protonix Tab) 40 mg DAILY@06 PO Last administered on 04/26/17 06 :31; Admin Dose 40 MG; Start 04/25/17 at 06:00 Guaifenesin/ Dextromethorphan (Mucinex Dm) 1 tab BID PO Last administered on 09:44; Admin Dose 1 TAB; Start 04/25/17 at 03:15 Hydralazine HCl (Apresoline) 10 mg Q4H PRN IV ELEVATED BLOOD PRESSURE Last administered on 11/30/17at 15:44; Admin Dose 10 MG; Start 04/25/17 at 03:30 Diagnostic Test (Pha) (Accu-Chek) 1 ea 02 XX ; Start 04/26/17 at 02:00 Citric Acid/ Sodium Citrate 30 ml 30 ml TID PO Last administered on 04/26/17 12:41; Admin Dose 30 ML; Start 04/25/17 at 13:00 Albumin Human (Albumin Human 25%) 50 ml @ 100 mls/hr BID IV Last administered on 04/26/17 09:40; Admin Dose 100 MLS/HR; Start 04/25/17 at 10:00; Stop at 12:30 Aspirin (Aspirin) 81 mg DAILY PO Last administered on 04/26/17 09:44; Admin Dose 81 MG; Start 04/25/17 at 12:00 Heparin Sodium (Porcine) (Heparin (5000 Units/0.5 ml)) 5,000 unit BID SC Last administered on 04/26/17 09:51; Admin Dose 5,000 UNIT; Start 04/26/17 at 09:00 Miscellaneous Information 1 ea NOTE XX ; Start 04/25/17 at 12:00 Glucose (Glutose) 15 gm Q15M PRN PO DECREASED GLUCOSE; Start 04/25/17 at 12:00 Glucose (Glutose) 22.5 gm Q15M PRN PO DECREASED GLUCOSE; Start 04/25/17 at 12: 00 Dextrose (D50w Syringe) 25 ml Q15M PRN IV DECREASED GLUCOSE; Start 04/25/17 at 12:00 Dextrose (D50w Syringe) 50 ml Q15M PRN IV DECREASED GLUCOSE; Start 04/25/17 at 12:00 Glucagon (Glucagen) 1 mg Q15M PRN IM DECREASED GLUCOSE; Start 04/25/17 at 12: 00 Glucose (Glutose) 15 gm Q15M PRN BUCCAL DECREASED GLUCOSE; Start 04/25/17 at 12:00 Furosemide 20 mg 20 mg BID IV Last administered on 04/26/17 10:30; Admin Dose 20 MG; Start 04/26/17 at 09:00 Vancomycin HCl/ Sodium Chloride (Vancocin/NS) 500 ml @ 125 mls/hr ONCE IVPB ; Start 04/26/17 at 16:30; Stop 04/27/17 at 02:00 RAQUEL MCDOWELL MD Apr 26, 2017 16:32
[2017-04-26] MEDS ORDERED: INSULIN ASPART [NOVOLOG] 3 ML PEN SC SCH (17:55)
--- NOTE | 2017-04-26 18:09 | CONS ---
DATE OF ADMISSION: 04/24/2017 DATE OF CONSULTATION: 04/26/2017 TYPE OF CONSULTATION: Infectious disease. REASON FOR CONSULTATION: Antibiotic management. HISTORY OF PRESENT ILLNESS: Piter Arora is a 66-year-old male who presented to the emergency ro with generalized weakness, cough and congestion over the past week. The patient's problems inclu de: 1. High blood pressure. 2. History of kidney problems, not on dialysis presently. 3. Adult-onset diabetes mellitus. 4. Gout. 5. GERD. 6. History of DVT, on Xarelto. Acutely, the patient comes in with shortness of breath with apparent fluid overload, either secondar y to cardiac and/or renal disease versus COPD exacerbation. The patient has a history of smoking in the past. The patient was given Solu-Medrol and Lasix for diuresis. First troponin was elevated a t 0.4, but the patient denies chest pain. PAST MEDICAL HISTORY: Operations as outlined. FAMILY HISTORY: Noncontributory. SOCIAL HISTORY: Has a history of smoking in the past. He does not drink or abuse drugs. ALLERGIES: NONE TO PENICILLIN, SULFA OR FOODS. MEDICATIONS: Per chart. REVIEW OF SYSTEMS: As per HPI. PAST SURGICAL HISTORY: He had stents x2. PHYSICAL EXAMINATION: GENERAL: The patient is an obese male who is lying in bed in no acute distress. VITAL SIGNS: Stable. He is afebrile. SKIN: Without generalized rash. HEENT: Within normal limits. NECK: Supple. LYMPH NODES: None palpable. CHEST: Decreased breath sounds at the bases. HEART: Without murmur or gallop. ABDOMEN: Soft, nontender, without organosplenomegaly or masses. EXTREMITIES: Without cyanosis, clubbing or edema. RECTAL AND GENITAL: Deferred. NEUROLOGIC: No focal neurological abnormality. IMAGING: Chest x-ray shows mild vascular and interstitial prominence without pleural effusion or fo joshua consolidation. LABORATORY DATA: His white count is 11,000, H and H is 10.4/28.6, platelet count 329,000. BUN and creatinine 74/5.71. Glucose random of 85. Microbiology: The patient grew out group B strep or Str ep agalactiae from the urine. Has a Staph species in the blood. Chest x-ray shows, as noted, mild vascular interstitial prominence without pleural effusion or focal consolidation. Renal ultrasound: Bilateral hyperechoic kidneys consistent with medical renal disease. Otherwise, normal renal ultr asound. Venous study: DVT of the left popliteal vein, probably chronic. The patient is currently on vancomycin. The white count today is 14.7, H and H of 9.4/26.4, platelet count 447,000. Urine i s negative for nitrites and leukocyte esterase. IMPRESSION AND PLAN: The patient seems to have a urinary tract infection, although his nitrite and leukocyte esterase were negative. The blood culture itself may be a contaminant, but his white coun t today is 14.7. The patient is on vancomycin. Will recheck his blood cultures. I will dictate my findings to the hospitalist. Dictated By: LOYD SOTELO MD, JD/FREDY Conf#: [id number] DID#: [id number] CC: MARVIN ROTH MD;*End*
[2017-04-26] MEDS: ATORVASTATIN 80 MG TAB PO SCH (21:24)
[2017-04-26] MEDS: INSULIN GLARGINE [LANtus] 3 ML PEN SC SCH (21:41)
[2017-04-27] VITALS (13 sets, daily range): BP systolic 129–179; BP diastolic 64–83; PULSE 70–105; RESP 18–22
[2017-04-27] MEDS: ALBUTEROL/IPRATROPIUM (NEB) 3 ML AMP HHN SCH ×6 (01:18→21:15)
[2017-04-27] MEDS: ACCU-CHEK XX SCH (02:00)
[2017-04-27] MEDS: PANTOPRAZOLE (EC) 40 MG TAB PO SCH (06:31)
[2017-04-27] MEDS: INSULIN ASPART [NOVOLOG] 3 ML PEN SC SCH ×7 (08:21→21:00)
[2017-04-27] MEDS: ALBUMIN HUMAN 25% 50 ML IV SCH (08:26)
[2017-04-27] MEDS: GUAIFENESIN/DM (SR) TAB PO SCH ×2 (08:27→20:54)
[2017-04-27] MEDS: FERROUS SULFATE (EC) 325 MG TAB PO SCH (08:27)
[2017-04-27] MEDS: CITRIC ACID/SODIUM CITRATE 15 ML CUP PO SCH ×3 (08:27→21:00)
[2017-04-27] MEDS: MULTIVIT/CA CARB/B CMPLX/FA TAB PO SCH (08:27)
[2017-04-27] MEDS: ASPIRIN 81 MG TAB PO SCH (08:27)
[2017-04-27] MEDS: AMLODIPINE 5 MG TAB PO SCH (08:28)
[2017-04-27] MEDS: HEPARIN 5,000 UNIT/0.5 ML VIAL SC SCH ×2 (08:37→20:57)
[2017-04-27 08:43] LABS: MAGNESIUM 1.6 mg/dl (1.7-2.5); PHOSPHORUS 5.2 mg/dl (2.5-4.9)
[2017-04-27 08:46] LABS: ALBUMIN 3.3 g/dl (3.3-4.9); BILIRUBIN,INDIRECT 2.3 mg/dl (0-1.1); BILIRUBIN,TOTAL 2.3 mg/dl (0.2-1.3); CREATININE 5.61 mg/dl (0.61-1.24); POTASSIUM 3.1 mmol/L (3.5-5.1); TOTAL PROTEIN 6.6 g/dl (6.1-8.1)
[2017-04-27 09:01] LABS: TROPONIN-I 0.133 ng/ml (0.00-0.12)
[2017-04-27] MEDS ORDERED: MAGNESIUM SULFATE 2 GM/50 ML 50 ML IVPB ONE (09:30)
[2017-04-27] MEDS ORDERED: POTASSIUM CHLORIDE (SR) 10 MEQ TAB PO ONE (09:30)
[2017-04-27] MEDS: FUROSEMIDE 20 MG INJ IV SCH ×2 (10:03→20:54)
[2017-04-27 10:06] LABS: ABNORMAL IP MESSAGE 1; BASOPHILS % 0.1 % (0.0-2.0); EOSINOPHILS # 0.1 10^3/ul (0.0-0.5); EOSINOPHILS % 0.3 % (0.0-7.0); LYMPHOCYTES # 2.4 10^3/ul (0.8-2.9); LYMPHOCYTES % 15.7 % (15.0-51.0); MONOCYTE # 1.2 10^3/ul (0.3-0.9); MONOCYTES % 7.6 % (0.0-11.0); NEUTROPHIL # 10.8 10^3/ul (1.6-7.5); NEUTROPHILS % 71.3 % (39.0-77.0); NUCLEATED RED BLOOD CELLS% 0.1 /100WBC (0.0-0.0); POSITIVE DIFF @See below; WHITE BLOOD COUNT 15.2 10^3/ul (4.8-10.8)
[2017-04-27 10:10] LABS: MEAN PLATELET VOLUME 12.5 fl (7.4-10.4); PLATELET COUNT 423 10^3/UL (140-415)
--- NOTE | 2017-04-27 10:48 | CONS ---
Date/Time of Note Date/Time of Note DATE: 04/27/17 TIME: 10:40 Assessment/Plan Assessment/Plan Problems: (1) Diabetes mellitus type 2 in obese Status: Chronic Comment: The patient actually is on a fairly well-balanced regimen. His admission A1c was 7.2. Please note his A1c may not be is valid in him given his renal failure and his anemia but regardless he was relatively close. If he is going to use a combination insulin regimen with a DPP 4 the dosage needs to be adjusted for his renal function. The formulary product here at this hospital Tradjenta does not need dosage adjustment for renal function if that is used and he can go out on 5 mg a day. If however is going to be using Januvia than the appropriate dosing in this setting would be 25 mg once a day (2) End stage renal disease on dialysis due to type 2 diabetes mellitus Status: Chronic Comment: Apparently this is his third admission for complications due to volume overload from the renal dysfunction. He needs to be started on dialysis for his own benefit and best interest. Get that rolling. I am going to go ahead and order the serologies he will need for the dialysis center now (3) Essential hypertension Status: Chronic Comment: I actually believe that would be okay to use the angiotensin II receptor fabiana drug in him valsartan. However hydrochlorothiazide would be of little benefit and given his creatinine clearance and therefore should not be used. (4) Diastolic dysfunction Status: Chronic Comment: Noted. Low-dose beta blockade as part of his hypertensive regimen would be appropriate. (5) Coronary artery disease Status: Chronic Comment: This is quiescent Qualifiers: Qualified Code: I25.10 - Coronary artery disease involving tangirnaq coronary artery of tangirnaq heart without angina pectoris (6) Deep venous thrombosis of left popliteal vein Status: Chronic Comment: Noted. He came in on full dose Xarelto in the setting of renal failure. The primary team has appropriately recommended holding this and using alternative means of dealing with this medical issue (7) Hyperuricemia Status: Chronic Comment: Consider low-dose treatment with allopurinol (8) Gastroesophageal reflux disease Status: Chronic Comment: Noted. Qualifiers: Qualified Code: K21.9 - Gastroesophageal reflux disease without esophagitis (9) Obesity (BMI 30.0-34.9) Status: Chronic Comment: Noted. Is quite likely that this gentleman also has obstructive sleep apnea. This should be addressed after he has been stabilized on dialysis (10) Hyperlipidemia associated with type 2 diabetes mellitus Status: Chronic Comment: Consideration of additional medication treatment. Consultation Date/Type/Reason Admit Date/Time Apr 24, 2017 at 19:05 Date of Consultation: Apr 27, 2017 Type of Consultation: Endocrinology Reason for Consultation Diabetes mellitus type 2 on multiple daily injection regimen with complications , end-stage renal disease, peripheral neuropathy, retinopathy, vascular disease Referring Provider: NANY PRIEST NP Hx of Present Illness Pleasant [place] gentleman with his family present in the room reporting a 30 year history of diabetes mellitus type 2. He had been on oral agent therapy but as his kidneys declined he was transitioned over to a multiple daily injection regimen using Lantus and NovoLog. He intermittently takes full dose Januvia 100 mg despite his renal dysfunction Constitutional: no complaints (No fevers chills or sweats) Eyes: no complaints (Reports he is up-to-date with the eye doctor) ENT: no complaints Respiratory: no complaints Cardiovascular: no complaints Gastrointestinal: no complaints Genitourinary: no complaints Musculoskeletal: no complaints Skin: no complaints Neurologic: other (Decreased sensation with some tingling in the lower extremities) Endocrine: no complaints Past Medical History Medical History: coronary artery disease, deep vein thrombosis, diabetes, high cholesterol, hypertension, renal disease Past Surgical History Past Surgical Hx: other (Coronary angiogram and stomach surgery ) Family History Significant Family History: diabetes, hypertension Social History Tired gentleman. Born in [facility] and raised there. Lives here with his family Alcohol Use: occasionally Smoking Status: Former smoker Drug Use: none Exam/Review of Systems Vital Signs Vitals Vital Signs Date Time Temp Pulse Resp B/P Pulse Ox O2 Delivery O2 Flow Rate FiO2 04/27/17 08:08 Nasal Cannula 2.0 04/27/17 08:05 81 04/27/17 07:55 20 89 21 04/27/17 07:25 98.0 148/70 Intake and Output 04/26/17 04/26/17 04/27/17 14:59 22:59 06:59 Intake Total 850 ml 3000 ml Output Total 1400 ml Balance 850 ml 1600 ml Exam Constitutional: alert, oriented Eyes: EOMI, PERRL, nl conjunctiva, nl lids, nl sclera, other (Fundi were not visualized) Neck: non-tender, supple Respiratory: clear to auscultation, normal air movement Cardiovascular: nl pulses, regular rate and rhythm Gastrointestinal: nl liver, spleen, non-tender, soft Results Result Diagram: 04/27/17 0719 04/27/17 0719 Results 24 hrs Laboratory Tests Test 04/26/17 12:20 04/26/17 17:09 04/26/17 21:22 04/27/17 02:24 Bedside Glucose 222 H 146 184 205 Test 04/27/17 07:19 04/27/17 08:18 White Blood Count 15.2 H Red Blood Count 1.29 #L Hemoglobin 8.8 L Hematocrit 26.4 L Mean Corpuscular Volume 171.4 #H Mean Corpuscular Hemoglobin 57.1 #H Mean Corpuscular Hemoglobin Concent 33.3 Red Cell Distribution Width Platelet Count 423 H Mean Platelet Volume 12.5 H Neutrophils % 71.3 Lymphocytes % 15.7 Monocytes % 7.6 Eosinophils % 0.3 Basophils % 0.1 Nucleated Red Blood Cells % 0.1 H Neutrophils # 10.8 H Lymphocytes # 2.4 Monocytes # 1.2 H Eosinophils # 0.1 Basophils # 0.0 Nucleated Red Blood Cells # 0.0 Sodium Level 142 Potassium Level 3.1 L Chloride Level 101 Carbon Dioxide Level 26 Anion Gap 18 H Blood Urea Nitrogen 117 H Creatinine 5.61 H Glucose Level 149 # Calcium Level 9.0 Phosphorus Level 5.2 H Magnesium Level 1.6 L Total Bilirubin 2.3 H Direct Bilirubin 0.00 Indirect Bilirubin 2.3 H Aspartate Amino Transf (AST/SGOT) 21 Alanine Aminotransferase (ALT/SGPT) 35 Alkaline Phosphatase 54 Troponin I 0.133 *H Total Protein 6.6 Albumin 3.3 Globulin 3.30 H Albumin/Globulin Ratio 1.00 Bedside Glucose 161 Medications Medications Current Medications Ondansetron HCl (Zofran Tab) 4 mg Q6H PRN PO NAUSEA AND/OR VOMITING; Start at 23:00 Nitroglycerin (Nitroglycerin (Sl Tab) 0.4 Mg) 1 tab Q5M PRN SL CHEST PAIN; Start 04/24/17 at 23:00 Docusate Sodium (Colace) 100 mg Q12H PRN PO CONSTIPATION; Start 04/24/17 at 23 :00 Bisacodyl (Dulcolax) 5 mg DAILY PRN PO CONSTIPATION; Start 04/24/17 at 23:00 Amlodipine Besylate (Norvasc) 5 mg DAILY PO Last administered on 04/27/17 08: 28; Admin Dose 5 MG; Start 04/25/17 at 09:00 Atorvastatin Calcium (Lipitor) 80 mg QHS PO Last administered on 04/26/17 21: 24; Admin Dose 80 MG; Start 04/25/17 at 21:00 Ergocalciferol (Drisdol) 50,000 unit Mo@09 PO Last administered on 04/25/17 21:57; Admin Dose 50,000 UNIT; Start 04/24/17 at 23:00 Ferrous Sulfate (Ferrous Sulfate (Ec)) 325 mg DAILY PO Last administered on 08:27; Admin Dose 325 MG; Start 04/25/17 at 09:00 Insulin Glargine (Lantus) 52 unit QHS SC Last administered on 04/26/17 21:41; Admin Dose 52 UNIT; Start 04/25/17 at 21:00 Multivit/Ca Carb/ B Cmplx/FA/Prenat (Isabel-Brenda) 1 tab DAILY PO Last administered on 04/27/17 08:27; Admin Dose 1 TAB; Start 04/25/17 at 09:00 Pantoprazole (Protonix Tab) 40 mg DAILY@06 PO Last administered on 04/27/17 06 :31; Admin Dose 40 MG; Start 04/25/17 at 06:00 Guaifenesin/ Dextromethorphan (Mucinex Dm) 1 tab BID PO Last administered on 08:27; Admin Dose 1 TAB; Start 04/25/17 at 03:15 Hydralazine HCl (Apresoline) 10 mg Q4H PRN IV ELEVATED BLOOD PRESSURE Last administered on 04/25/17 15:44; Admin Dose 10 MG; Start 04/25/17 at 03:30 Diagnostic Test (Pha) (Accu-Chek) 1 ea 02 XX ; Start 04/26/17 at 02:00 Citric Acid/ Sodium Citrate 30 ml 30 ml TID PO Last administered on 04/27/17 08:27; Admin Dose 30 ML; Start 04/25/17 at 13:00 Albumin Human (Albumin Human 25%) 50 ml @ 100 mls/hr BID IV Last administered on 04/27/17 08:26; Admin Dose 100 MLS/HR; Start 04/25/17 at 10:00; Stop at 12:30 Aspirin (Aspirin) 81 mg DAILY PO Last administered on 04/27/17 08:27; Admin Dose 81 MG; Start 04/25/17 at 12:00 Heparin Sodium (Porcine) (Heparin (5000 Units/0.5 ml)) 5,000 unit BID SC Last administered on 04/27/17 08:37; Admin Dose 5,000 UNIT; Start 04/26/17 at 09:00 Miscellaneous Information 1 ea NOTE XX ; Start 04/25/17 at 12:00 Glucose (Glutose) 15 gm Q15M PRN PO DECREASED GLUCOSE; Start 04/25/17 at 12:00 Glucose (Glutose) 22.5 gm Q15M PRN PO DECREASED GLUCOSE; Start 04/25/17 at 12: 00 Dextrose (D50w Syringe) 25 ml Q15M PRN IV DECREASED GLUCOSE; Start 04/25/17 at 12:00 Dextrose (D50w Syringe) 50 ml Q15M PRN IV DECREASED GLUCOSE; Start 04/25/17 at 12:00 Glucagon (Glucagen) 1 mg Q15M PRN IM DECREASED GLUCOSE; Start 04/25/17 at 12: 00 Glucose (Glutose) 15 gm Q15M PRN BUCCAL DECREASED GLUCOSE; Start 04/25/17 at 12:00 Furosemide 20 mg 20 mg BID IV Last administered on 04/27/17 10:03; Admin Dose 20 MG; Start 04/26/17 at 09:00 Magnesium Sulfate 50 ml @ 25 mls/hr ONCE ONCE IVPB Last administered on 10:02; Admin Dose 25 MLS/HR; Start 04/27/17 at 09:30; Stop 04/27/17 at 11: 29 Potassium Chloride/Dextrose (KCl/D5W) 110 ml @ 55 mls/hr ONCE ONCE IVPB ; Start 04/27/17 at 12:00; Stop 04/27/17 at 13:59 MARA GRAYSON MD Apr 27, 2017 10:48
--- NOTE | 2017-04-27 10:50 | PN ---
Date/Time of Note Date/Time of Note DATE: 04/27/17 TIME: 10:48 Assessment/Plan VTE Prophylaxis VTE Prophylaxis Intervention: heparin Lines/Catheters IV Catheter Type (from [facility]): Mid Line Urinary Cath still in place: No Assessment/Plan Chief Complaint/Hosp Course 1. Acute respiratory failure. Hypoxic. Most probably secondary to underlying fluid overload. Continue diuresis as per nephrology. Continue inhaled bronchodilators. Continue supplemental oxygen. 2. NSTEMI. Most probably type II event in the setting of underlying worsening renal function. The patient denies any chest pain. 3. Gram positive bacteremia. Most likely a sample contaminant. On empiric vancomycin. Infectious disease following the patient. Repeat blood cultures pending. 4. Acute on chronic congestive heart failure exacerbation. Diastolic dysfunction. Continue diuresis while carefully watching the patient's renal function. 5. Pulmonary hypertension. PA systolic pressure 44 mmHg. Continue supplemental oxygen. 6. CAD. Status post PTCA in the past. Continue aspirin. 7. Metabolic acidosis. Most probably secondary to worsening renal function. On Bicitra as per nephrology. 8. Dyslipidemia. Continue statins. 9. Diabetes mellitus type 2. Continue sliding scale insulin along with basal insulin and pre-meal insulin. Adjust insulin dosing to obtain optimal blood sugar control. Endocrinology consult. 10. Essential hypertension. Continue antihypertensives. 11. DVT of the left popliteal vein. The patient has prior history of DVT of lower extremity with the details unclear and he was taking Xarelto at home. This has been discontinued because of worsening renal function. Anticoagulation being held for possible HD access placement. 12. Acute on chronic chronic kidney disease. The patient being followed by nephrology. 13. Fluids, electrolytes, and nutrition. Carbohydrate controlled, low- cholesterol diet. 14. DVT prophylaxis. Subcutaneous heparin. 15. Plan. Continue diuresis while carefully watching the patient's renal function. Replete potassium and magnesium. The patient agreed for hemodialysis and the hemodialysis access to be placed on Saturday. The patient was seen in collaboration with Dr. Jackson. 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 Problems: Subjective 24 Hr Interval Summary Free Text/Dictation Feeling "so-so." Exam/Review of Systems Vital Signs Vitals Vital Signs Date Time Temp Pulse Resp B/P Pulse Ox O2 Delivery O2 Flow Rate FiO2 04/27/17 08:08 Nasal Cannula 2.0 04/27/17 08:05 81 04/27/17 07:55 20 89 21 04/27/17 07:25 98.0 148/70 Intake and Output 04/26/17 04/26/17 04/27/17 14:59 22:59 06:59 Intake Total 850 ml 3000 ml Output Total 1400 ml Balance 850 ml 1600 ml Exam General: Obese 66 year-old male lying in bed in mild respiratory distress. HEENT: Normocephalic, atraumatic. Eyes: Anicteric sclerae, conjunctivae clear. ENT: Nasal septum midline, oral mucosa moist. Neck supple, JVD noticed. Respiratory: Bilaterally diminished breath sounds. Minimal use of accessory muscles of respiration. Cardiovascular: S1, S2 heard. Regular rate and rhythm. Abdomen: Soft, nontender, and nondistended. Bowel sounds positive in all 4 quadrants. Genitourinary: Deferred. Extremities: No cyanosis. B/L trace pedal edema. Peripheral pulses palpable. Neurologic: Cranial nerves II through XII grossly intact. The patient is awake, alert, and oriented. Skin: Normal skin turgor. No skin rashes. Results Result Diagram: 04/27/17 0719 04/27/17 0719 Results 24 hrs Laboratory Tests Test 04/26/17 12:20 04/26/17 17:09 04/26/17 21:22 04/27/17 02:24 Bedside Glucose 222 H 146 184 205 Test 04/27/17 07:19 04/27/17 08:18 White Blood Count 15.2 H Red Blood Count 1.29 #L Hemoglobin 8.8 L Hematocrit 26.4 L Mean Corpuscular Volume 171.4 #H Mean Corpuscular Hemoglobin 57.1 #H Mean Corpuscular Hemoglobin Concent 33.3 Red Cell Distribution Width Platelet Count 423 H Mean Platelet Volume 12.5 H Neutrophils % 71.3 Lymphocytes % 15.7 Monocytes % 7.6 Eosinophils % 0.3 Basophils % 0.1 Nucleated Red Blood Cells % 0.1 H Neutrophils # 10.8 H Lymphocytes # 2.4 Monocytes # 1.2 H Eosinophils # 0.1 Basophils # 0.0 Nucleated Red Blood Cells # 0.0 Sodium Level 142 Potassium Level 3.1 L Chloride Level 101 Carbon Dioxide Level 26 Anion Gap 18 H Blood Urea Nitrogen 117 H Creatinine 5.61 H Glucose Level 149 # Calcium Level 9.0 Phosphorus Level 5.2 H Magnesium Level 1.6 L Total Bilirubin 2.3 H Direct Bilirubin 0.00 Indirect Bilirubin 2.3 H Aspartate Amino Transf (AST/SGOT) 21 Alanine Aminotransferase (ALT/SGPT) 35 Alkaline Phosphatase 54 Troponin I 0.133 *H Total Protein 6.6 Albumin 3.3 Globulin 3.30 H Albumin/Globulin Ratio 1.00 Bedside Glucose 161 Medications Medications Current Medications Ondansetron HCl (Zofran Tab) 4 mg Q6H PRN PO NAUSEA AND/OR VOMITING; Start at 23:00 Nitroglycerin (Nitroglycerin (Sl Tab) 0.4 Mg) 1 tab Q5M PRN SL CHEST PAIN; Start 04/24/17 at 23:00 Docusate Sodium (Colace) 100 mg Q12H PRN PO CONSTIPATION; Start 04/24/17 at 23 :00 Bisacodyl (Dulcolax) 5 mg DAILY PRN PO CONSTIPATION; Start 04/24/17 at 23:00 Amlodipine Besylate (Norvasc) 5 mg DAILY PO Last administered on 04/27/17 08: 28; Admin Dose 5 MG; Start 04/25/17 at 09:00 Atorvastatin Calcium (Lipitor) 80 mg QHS PO Last administered on 04/26/17 21: 24; Admin Dose 80 MG; Start 04/25/17 at 21:00 Ergocalciferol (Drisdol) 50,000 unit Mo@09 PO Last administered on 04/25/17 21:57; Admin Dose 50,000 UNIT; Start 04/24/17 at 23:00 Ferrous Sulfate (Ferrous Sulfate (Ec)) 325 mg DAILY PO Last administered on 08:27; Admin Dose 325 MG; Start 04/25/17 at 09:00 Insulin Glargine (Lantus) 52 unit QHS SC Last administered on 04/26/17 21:41; Admin Dose 52 UNIT; Start 04/25/17 at 21:00 Multivit/Ca Carb/ B Cmplx/FA/Prenat (Isabel-Brenda) 1 tab DAILY PO Last administered on 04/27/17 08:27; Admin Dose 1 TAB; Start 04/25/17 at 09:00 Pantoprazole (Protonix Tab) 40 mg DAILY@06 PO Last administered on 04/27/17 06 :31; Admin Dose 40 MG; Start 04/25/17 at 06:00 Guaifenesin/ Dextromethorphan (Mucinex Dm) 1 tab BID PO Last administered on 08:27; Admin Dose 1 TAB; Start 04/25/17 at 03:15 Hydralazine HCl (Apresoline) 10 mg Q4H PRN IV ELEVATED BLOOD PRESSURE Last administered on 04/25/17 15:44; Admin Dose 10 MG; Start 04/25/17 at 03:30 Diagnostic Test (Pha) (Accu-Chek) 1 ea 02 XX ; Start 04/26/17 at 02:00 Citric Acid/ Sodium Citrate 30 ml 30 ml TID PO Last administered on 04/27/17 08:27; Admin Dose 30 ML; Start 04/25/17 at 13:00 Albumin Human (Albumin Human 25%) 50 ml @ 100 mls/hr BID IV Last administered on 04/27/17 08:26; Admin Dose 100 MLS/HR; Start 04/25/17 at 10:00; Stop at 12:30 Aspirin (Aspirin) 81 mg DAILY PO Last administered on 04/27/17 08:27; Admin Dose 81 MG; Start 04/25/17 at 12:00 Heparin Sodium (Porcine) (Heparin (5000 Units/0.5 ml)) 5,000 unit BID SC Last administered on 04/27/17 08:37; Admin Dose 5,000 UNIT; Start 04/26/17 at 09:00 Miscellaneous Information 1 ea NOTE XX ; Start 04/25/17 at 12:00 Glucose (Glutose) 15 gm Q15M PRN PO DECREASED GLUCOSE; Start 04/25/17 at 12:00 Glucose (Glutose) 22.5 gm Q15M PRN PO DECREASED GLUCOSE; Start 04/25/17 at 12: 00 Dextrose (D50w Syringe) 25 ml Q15M PRN IV DECREASED GLUCOSE; Start 04/25/17 at 12:00 Dextrose (D50w Syringe) 50 ml Q15M PRN IV DECREASED GLUCOSE; Start 04/25/17 at 12:00 Glucagon (Glucagen) 1 mg Q15M PRN IM DECREASED GLUCOSE; Start 04/25/17 at 12: 00 Glucose (Glutose) 15 gm Q15M PRN BUCCAL DECREASED GLUCOSE; Start 04/25/17 at 12:00 Furosemide 20 mg 20 mg BID IV Last administered on 04/27/17 10:03; Admin Dose 20 MG; Start 04/26/17 at 09:00 Magnesium Sulfate 50 ml @ 25 mls/hr ONCE ONCE IVPB Last administered on 10:02; Admin Dose 25 MLS/HR; Start 04/27/17 at 09:30; Stop 04/27/17 at 11: 29 Potassium Chloride/Dextrose (KCl/D5W) 110 ml @ 55 mls/hr ONCE ONCE IVPB ; Start 04/27/17 at 12:00; Stop 04/27/17 at 13:59 NANY PRIEST NP Apr 27, 2017 10:50
[2017-04-27] MEDS ORDERED: POTASSIUM CHLORIDE 20 MEQ in DEXTROSE 5% 100 ML IVPB ONE (12:00)
[2017-04-27] MEDS: METOPROLOL (XL) 25 MG TAB PO SCH (12:01)
--- NOTE | 2017-04-27 16:50 | CONS ---
Date/Time of Note Date/Time of Note DATE: 04/27/17 TIME: 16:49 Assessment/Plan Assessment/Plan Chief Complaint/Hosp Course 66 M with PMHx of HTN, DM II, HL, H/o CKD due to diabetic nehropathy as per patient, he follows with outside physician who doesn't come here. pt presented with SOB, Congestion and worsenign renal failure, he is also noted to have Hyperkalemia with K 6.0 and decreased urine output . Problems: Additional Assessment/Plan 1. Oliguric TROY on CKD III/IV Due to possible Cardiorenal syndrome with worsening renal failue due to diabetic nephropathy- failed outpatient PO lasix therapy 2. 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 Acute hyperkalemia due to TROY on CKD 4. Metabolic acidosis due to worsenign renal failure 5. H/ CAD S/p previous coronary angiogram as per patient 6. Hypertension 7. Type II DM 8. 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 - who agreed with initiation of HD, pt has recurrent fluid overload episodes and Failed outpatient PO lasix stopped valsartan/HCTZ pt is on xarelto for anticoagulation d/w with patient at bedside about his very low renal function and possible need of dialysis.- all family members included in discussion, they agreed for HD initation but pt wants to have only one prick for HD catheter, so we will arrange his permacath on Saturday has been consulted on case will order Hepatitis panel and HIV with AM labs Consultation Date/Type/Reason Admit Date/Time Apr 24, 2017 at 19:05 Initial Consult Date 04/25/17 Type of Consultation: NEPHROLOGY Referring Provider: NANY PRIEST NP 24 HR Interval Summary Free Text/Dictation Endocrinology has been consulted on the case , Co SOB and leg edema Exam/Review of Systems Vital Signs Vitals Vital Signs Date Time Temp Pulse Resp B/P Pulse Ox O2 Delivery O2 Flow Rate FiO2 04/27/17 16:05 80 04/27/17 15:29 98.1 18 171/ 93 04/27/17 15:15 Room Air 04/27/17 13:09 21 04/27/17 08:08 2.0 Intake and Output 04/26/17 04/26/17 04/27/17 15:00 23:00 07:00 Intake Total 850 ml 3000 ml Output Total 1400 ml Balance 850 ml 1600 ml Results Result Diagram: 04/27/17 0719 04/27/17 0719 Results 24 hrs Laboratory Tests Test 04/26/17 17:09 04/26/17 21:22 04/27/17 02:24 04/27/17 07:19 Bedside Glucose 146 184 205 White Blood Count 15.2 H Red Blood Count 1.29 #L Hemoglobin 8.8 L Hematocrit 26.4 L Mean Corpuscular Volume 171.4 #H Mean Corpuscular Hemoglobin 57.1 #H Mean Corpuscular Hemoglobin Concent 33.3 Red Cell Distribution Width Platelet Count 423 H Mean Platelet Volume 12.5 H Neutrophils % 71.3 Lymphocytes % 15.7 Monocytes % 7.6 Eosinophils % 0.3 Basophils % 0.1 Nucleated Red Blood Cells % 0.1 H Neutrophils # 10.8 H Lymphocytes # 2.4 Monocytes # 1.2 H Eosinophils # 0.1 Basophils # 0.0 Nucleated Red Blood Cells # 0.0 Sodium Level 142 Potassium Level 3.1 L Chloride Level 101 Carbon Dioxide Level 26 Anion Gap 18 H Blood Urea Nitrogen 117 H Creatinine 5.61 H Glucose Level 149 # Calcium Level 9.0 Phosphorus Level 5.2 H Magnesium Level 1.6 L Total Bilirubin 2.3 H Direct Bilirubin 0.00 Indirect Bilirubin 2.3 H Aspartate Amino Transf (AST/SGOT) 21 Alanine Aminotransferase (ALT/SGPT) 35 Alkaline Phosphatase 54 Troponin I 0.133 *H Total Protein 6.6 Albumin 3.3 Globulin 3.30 H Albumin/Globulin Ratio 1.00 Test 04/27/17 08:18 04/27/17 11:26 04/27/17 12:02 04/27/17 14:37 Bedside Glucose 161 111 69 L Hepatitis A Antibody Total POSITIVE H Hepatitis B Surface Antigen NEGATIVE Hepatitis B Surface Antibody NEGATIVE Hepatitis C Antibody REACTIVE H Test 04/27/17 15:05 04/27/17 15:39 04/27/17 16:23 Bedside Glucose 79 93 86 Medications Medications Current Medications Ondansetron HCl (Zofran Tab) 4 mg Q6H PRN PO NAUSEA AND/OR VOMITING; Start at 23:00 Nitroglycerin (Nitroglycerin (Sl Tab) 0.4 Mg) 1 tab Q5M PRN SL CHEST PAIN; Start 04/24/17 at 23:00 Docusate Sodium (Colace) 100 mg Q12H PRN PO CONSTIPATION; Start 04/24/17 at 23 :00 Bisacodyl (Dulcolax) 5 mg DAILY PRN PO CONSTIPATION; Start 04/24/17 at 23:00 Amlodipine Besylate (Norvasc) 5 mg DAILY PO Last administered on 04/27/17 08: 28; Admin Dose 5 MG; Start 04/25/17 at 09:00 Atorvastatin Calcium (Lipitor) 80 mg QHS PO Last administered on 04/26/17 21: 24; Admin Dose 80 MG; Start 04/25/17 at 21:00 Ergocalciferol (Drisdol) 50,000 unit Mo@09 PO Last administered on 04/25/17 21:57; Admin Dose 50,000 UNIT; Start 04/24/17 at 23:00 Ferrous Sulfate (Ferrous Sulfate (Ec)) 325 mg DAILY PO Last administered on 08:27; Admin Dose 325 MG; Start 04/25/17 at 09:00 Insulin Glargine (Lantus) 52 unit QHS SC Last administered on 04/26/17 21:41; Admin Dose 52 UNIT; Start 04/25/17 at 21:00 Multivit/Ca Carb/ B Cmplx/FA/Prenat (Isabel-Brenda) 1 tab DAILY PO Last administered on 04/27/17 08:27; Admin Dose 1 TAB; Start 04/25/17 at 09:00 Pantoprazole (Protonix Tab) 40 mg DAILY@06 PO Last administered on 04/27/17 06 :31; Admin Dose 40 MG; Start 04/25/17 at 06:00 Guaifenesin/ Dextromethorphan (Mucinex Dm) 1 tab BID PO Last administered on 08:27; Admin Dose 1 TAB; Start 04/25/17 at 03:15 Hydralazine HCl (Apresoline) 10 mg Q4H PRN IV ELEVATED BLOOD PRESSURE Last administered on 04/25/17 15:44; Admin Dose 10 MG; Start 04/25/17 at 03:30 Diagnostic Test (Pha) (Accu-Chek) 1 ea 02 XX ; Start 04/26/17 at 02:00 Citric Acid/ Sodium Citrate (Bicitra) 30 ml TID PO Last administered on 12:44; Admin Dose 30 ML; Start 04/25/17 at 13:00 Aspirin (Aspirin) 81 mg DAILY PO Last administered on 04/27/17 08:27; Admin Dose 81 MG; Start 04/25/17 at 12:00 Heparin Sodium (Porcine) (Heparin (5000 Units/0.5 ml)) 5,000 unit BID SC Last administered on 04/27/17 08:37; Admin Dose 5,000 UNIT; Start 04/26/17 at 09:00 Miscellaneous Information 1 ea NOTE XX ; Start 04/25/17 at 12:00 Glucose (Glutose) 15 gm Q15M PRN PO DECREASED GLUCOSE; Start 04/25/17 at 12:00 Glucose (Glutose) 22.5 gm Q15M PRN PO DECREASED GLUCOSE; Start 04/25/17 at 12: 00 Dextrose (D50w Syringe) 25 ml Q15M PRN IV DECREASED GLUCOSE; Start 04/25/17 at 12:00 Dextrose (D50w Syringe) 50 ml Q15M PRN IV DECREASED GLUCOSE; Start 04/25/17 at 12:00 Glucagon (Glucagen) 1 mg Q15M PRN IM DECREASED GLUCOSE; Start 04/25/17 at 12: 00 Glucose (Glutose) 15 gm Q15M PRN BUCCAL DECREASED GLUCOSE; Start 04/25/17 at 12:00 Furosemide (Lasix) 20 mg BID IV Last administered on 04/27/17 10:03; Admin Dose 20 MG; Start 04/26/17 at 09:00 Fish Oil (Fish Oil) 2,000 mg BID PO ; Start 04/27/17 at 21:00 EZETIMIBE (Zetia) 10 mg DAILY PO ; Start 04/28/17 at 09:00 Metoprolol Succinate (Toprol Xl) 25 mg DAILY PO Last administered on 04/27/17 12:01; Admin Dose 25 MG; Start 04/27/17 at 11:00 Miscellaneous Information (*Rx Drug Level Order Reminder*) VANCO RANDOM W/ AM LABS... ONCE ONCE XX ; Start 04/28/17 at 05:00; Stop 04/28/17 at 05:01 RAQUEL MCDOWELL MD Apr 27, 2017 16:50
[2017-04-27] MEDS: ATORVASTATIN 80 MG TAB PO SCH (20:54)
[2017-04-27] MEDS: hydrALAzine 20 MG INJ IV PRN (20:54)
[2017-04-27] MEDS: FISH OIL 1,000 MG CAP PO SCH (20:54)
[2017-04-27] MEDS: INSULIN GLARGINE [LANtus] 3 ML PEN SC SCH (21:00)
[2017-04-28] VITALS (9 sets, daily range): BP systolic 142–173; BP diastolic 67–80; PULSE 69–98; RESP 18–20
[2017-04-28] MEDS: ALBUTEROL/IPRATROPIUM (NEB) 3 ML AMP HHN SCH ×6 (01:00→21:04)
[2017-04-28] MEDS: ACCU-CHEK XX SCH (02:00)
[2017-04-28 06:29] LABS: INR 1.03; PROTIME 13.6 Sec (11.9-14.9); PT RATIO 1.1
[2017-04-28] MEDS: PANTOPRAZOLE (EC) 40 MG TAB PO SCH (06:29)
[2017-04-28 06:30] LABS: PARTIAL THROMBOPLASTIN TIME 25.7 Sec (25.0-35.0)
[2017-04-28 06:59] LABS: ALBUMIN/GLOBULIN RATIO 1.21; BILIRUBIN,INDIRECT 3.9 mg/dl (0-1.1); BILIRUBIN,TOTAL 3.9 mg/dl (0.2-1.3); CALCIUM 8.9 mg/dl (8.4-10.2); CREATININE 5.02 mg/dl (0.61-1.24); POTASSIUM 3.8 mmol/L (3.5-5.1); TOTAL PROTEIN 7.3 g/dl (6.1-8.1)
[2017-04-28] MEDS: hydrALAzine 20 MG INJ IV PRN (07:04)
[2017-04-28 07:26] LABS: PHOSPHORUS 4.1 mg/dl (2.5-4.9)
[2017-04-28] MEDS: INSULIN ASPART [NOVOLOG] 3 ML PEN SC SCH ×7 (07:55→21:02)
[2017-04-28 08:22] LABS: ABNORMAL IP MESSAGE 1; HEMATOCRIT 24.8 % (42.0-52.0); HEMOGLOBIN 8.4 g/dl (14.0-18.0); MEAN CORPUSCULAR HEMOGLOBIN 29.3 pg (29.0-33.0); MEAN CORPUSCULAR HGB CONC 33.9 g/dl (32.0-37.0); MEAN CORPUSCULAR VOLUME 86.4 fl (82.0-101.0); MEAN PLATELET VOLUME 13.7 fl (7.4-10.4); NUCLEATED RED BLOOD CELLS% 0.8 /100WBC (0.0-0.0); POSITIVE DIFF @See below; RED CELL DISTRIBUTION WIDTH 15.3 % (11.5-14.5)
[2017-04-28 08:25] LABS: PLATELET COUNT 478 10^3/UL (140-415)
[2017-04-28 08:26] LABS: RED BLOOD COUNT 2.87 10^6/ul (4.70-6.10)
[2017-04-28 08:50] LABS: HEMATOCRIT 24.2 % (42.0-52.0); HEMOGLOBIN 7.9 g/dl (14.0-18.0); RED BLOOD COUNT 2.69 10^6/ul (4.70-6.10)
[2017-04-28 08:51] LABS: MEAN CORPUSCULAR HEMOGLOBIN 29.4 pg (29.0-33.0); MEAN CORPUSCULAR HGB CONC 32.6 g/dl (32.0-37.0)
[2017-04-28] MEDS: morphine 2 MG INJ IV PRN ×2 (09:02→22:51)
[2017-04-28] MEDS ORDERED: POTASSIUM CHLORIDE (SR) 20 MEQ TAB PO STA (09:03)
[2017-04-28] MEDS: FUROSEMIDE 20 MG INJ IV SCH ×2 (09:05→20:56)
[2017-04-28] MEDS: CITRIC ACID/SODIUM CITRATE 15 ML CUP PO SCH ×3 (09:06→20:55)
[2017-04-28] MEDS: FERROUS SULFATE (EC) 325 MG TAB PO SCH (09:06)
[2017-04-28] MEDS: FISH OIL 1,000 MG CAP PO SCH ×2 (09:06→20:56)
[2017-04-28] MEDS: ASPIRIN 81 MG TAB PO SCH (09:06)
[2017-04-28] MEDS: AMLODIPINE 5 MG TAB PO SCH (09:06)
[2017-04-28] MEDS: GUAIFENESIN/DM (SR) TAB PO SCH ×2 (09:06→20:56)
[2017-04-28] MEDS: METOPROLOL (XL) 25 MG TAB PO SCH (09:07)
[2017-04-28] MEDS: MULTIVIT/CA CARB/B CMPLX/FA TAB PO SCH (09:07)
[2017-04-28] MEDS: EZETIMIBE 10 MG TAB PO SCH (09:07)
--- NOTE | 2017-04-28 09:08 | RADRPT ---
PROCEDURE: XR Chest. CLINICAL INDICATION: Chest pain TECHNIQUE: Single AP view of the chest was obtained COMPARISON: 04/24/2017 FINDINGS: Heart is borderline enlarged. Aorta is tortuous. Patchy opacities at the right greater than left naren g bases. No acute osseous abnormality. IMPRESSION: Mild cardiomegaly with congestive change. Patchy right greater than left basilar opacities likely re flect atelectasis. Pneumonia may also be considered in the appropriate clinical setting. RPTAT: AA Physician Saul Date Time Electronically viewed and signed by Jose Chen Physician on 04/28/2017 09:08 ID/
--- NOTE | 2017-04-28 09:16 | PN ---
Date/Time of Note Date/Time of Note DATE: 04/28/17 TIME: 09:10 Assessment/Plan VTE Prophylaxis VTE Prophylaxis Intervention: heparin Lines/Catheters IV C[facility]ter Type (from [facility]): Mid Line Urinary Cath still in place: No Assessment/Plan Chief Complaint/Hosp Course 1. Acute respiratory failure. Hypoxic. Most probably secondary to underlying fluid overload. Continue diuresis as per nephrology. Continue inhaled bronchodilators. Continue supplemental oxygen. 2. NSTEMI. Most probably type II event in the setting of underlying worsening renal function. The patient was complaining of chest pain on 04/28/2017. EKG showing no ST-T changes. Continue aspirin. Cardiology following. Negative. 3. Gram positive bacteremia. Most likely a sample contaminant. On empiric vancomycin. Infectious disease following the patient. Repeat blood cultures negative. 4. Acute on chronic congestive heart failure exacerbation. Diastolic dysfunction. Continue diuresis while carefully watching the patient's renal function. The patient will be started on hemodialysis. Hemodialysis access placement on 04/29/2017. 5. Pulmonary hypertension. PA systolic pressure 44 mmHg. Continue supplemental oxygen. 6. CAD. Status post PTCA in the past. Continue aspirin. 7. Metabolic acidosis. Most probably secondary to worsening renal function. On Bicitra as per nephrology. 8. Dyslipidemia. Continue statins. 9. Diabetes mellitus type 2. Continue sliding scale insulin along with basal insulin and pre-meal insulin. Adjust insulin dosing to obtain optimal blood sugar control. Endocrinology consult. 10. Essential hypertension. Continue antihypertensives. 11. DVT of the left popliteal vein. The patient has prior history of DVT of lower extremity with the details unclear and he was taking Xarelto at home. This has been discontinued because of worsening renal function. Anticoagulation being held for HD access placement. 12. Acute on chronic chronic kidney disease. The patient being followed by nephrology. The patient will be started on hemodialysis. Hemodialysis access placement on 04/29/2017. 13. Normocytic, normochromic anemia. Most probably anemia of chronic kidney disease. Monitor H&H closely. 14. Fluids, electrolytes, and nutrition. Carbohydrate controlled, low- cholesterol diet. 15. DVT prophylaxis. Subcutaneous heparin. 16. Plan. Continue diuresis while carefully watching the patient's renal function. The patient agreed for hemodialysis and the hemodialysis access to be placed on Saturday. Obtain serial troponins since the patient was complaining of chest pain. Stat chest x-ray ordered. Cardiology was informed about the patient's chest pain episode. The patient was seen in collaboration with Dr. Jackson. Problems: Subjective 24 Hr Interval Summary Free Text/Dictation The patient was complaining of chest pain throughout the night. Twelve-lead EKG showing frequent PACs and PVCs. Exam/Review of Systems Vital Signs Vitals Vital Signs Date Time Temp Pulse Resp B/P Pulse Ox O2 Delivery O2 Flow Rate FiO2 04/28/17 08:26 78 04/28/17 07:54 97.9 18 145/67 94 04/28/17 05:43 Nasal Cannula 2.0 04/27/17 17:23 21 Intake and Output 04/27/17 04/27/17 04/28/17 15:00 23:00 07:00 Intake Total 600 ml 500 ml Output Total 400 ml 400 ml Balance 200 ml 100 ml Exam General: Obese 66 year-old male lying in bed in mild respiratory distress. HEENT: Normocephalic, atraumatic. Eyes: Anicteric sclerae, conjunctivae clear. ENT: Nasal septum midline, oral mucosa moist. Neck supple, JVD noticed. Respiratory: Bilaterally diminished breath sounds. Minimal use of accessory muscles of respiration. Cardiovascular: S1, S2 heard. Occasional skipped beats. Abdomen: Soft, nontender, and nondistended. Bowel sounds positive in all 4 quadrants. Genitourinary: Deferred. Extremities: No cyanosis. B/L 1+ pedal edema. Peripheral pulses palpable. Neurologic: Cranial nerves II through XII grossly intact. The patient is awake, alert, and oriented. Skin: Normal skin turgor. No skin rashes. Results Result Diagram: 04/28/17 0534 04/28/17 0534 Results 24 hrs Laboratory Tests Test 04/27/17 11:26 04/27/17 12:02 04/27/17 14:37 04/27/17 15:05 Hepatitis A Antibody Total POSITIVE H Hepatitis B Surface Antigen NEGATIVE Hepatitis B Surface Antibody NEGATIVE Hepatitis C Antibody REACTIVE H Bedside Glucose 111 69 L 79 Test 04/27/17 15:39 04/27/17 16:23 04/27/17 20:52 04/28/17 02:06 Bedside Glucose 93 86 127 189 Test 04/28/17 05:34 04/28/17 09:00 White Blood Count 14.0 H Red Blood Count 2.87 L Hemoglobin 8.4 L Hematocrit 24.8 L Mean Corpuscular Volume 86.4 Mean Corpuscular Hemoglobin 29.3 Mean Corpuscular Hemoglobin Concent 33.9 Red Cell Distribution Width 15.3 #H Platelet Count 478 H Mean Platelet Volume 13.7 H Neutrophils % Lymphocytes % Monocytes % Eosinophils % Basophils % Nucleated Red Blood Cells % 0.8 H Neutrophils # Lymphocytes # Monocytes # Eosinophils # Basophils # Nucleated Red Blood Cells # Prothrombin Time 13.6 Prothrombin Time Ratio 1.1 INR International Normalized Ratio 1.03 Activated Partial Thromboplast Time 25.7 Sodium Level 138 Potassium Level 3.8 Chloride Level 97 Carbon Dioxide Level 26 Anion Gap 19 H Blood Urea Nitrogen 115 H Creatinine 5.02 H Glucose Level 169 Calcium Level 8.9 Phosphorus Level 4.1 Magnesium Level 2.0 Total Bilirubin 3.9 H Direct Bilirubin 0.00 Indirect Bilirubin 3.9 H Aspartate Amino Transf (AST/SGOT) 29 Alanine Aminotransferase (ALT/SGPT) 27 Alkaline Phosphatase 70 B-Type Natriuretic Peptide 6620 H Total Protein 7.3 Albumin 4.0 Globulin 3.30 H Albumin/Globulin Ratio 1.21 Random Vancomycin Level 16.6 HIV (1&2) Antibody NEGATIVE Bedside Glucose 246 H Medications Medications Current Medications Ondansetron HCl (Zofran Tab) 4 mg Q6H PRN PO NAUSEA AND/OR VOMITING; Start at 23:00 Nitroglycerin (Nitroglycerin (Sl Tab) 0.4 Mg) 1 tab Q5M PRN SL CHEST PAIN; Start 04/24/17 at 23:00 Docusate Sodium (Colace) 100 mg Q12H PRN PO CONSTIPATION; Start 04/24/17 at 23 :00 Bisacodyl (Dulcolax) 5 mg DAILY PRN PO CONSTIPATION; Start 04/24/17 at 23:00 Amlodipine Besylate (Norvasc) 5 mg DAILY PO Last administered on 04/27/17 08: 28; Admin Dose 5 MG; Start 04/25/17 at 09:00 Atorvastatin Calcium (Lipitor) 80 mg QHS PO Last administered on 04/27/17 20: 54; Admin Dose 80 MG; Start 04/25/17 at 21:00 Ergocalciferol (Drisdol) 50,000 unit Mo@09 PO Last administered on 04/25/17 21:57; Admin Dose 50,000 UNIT; Start 04/24/17 at 23:00 Ferrous Sulfate (Ferrous Sulfate (Ec)) 325 mg DAILY PO Last administered on 08:27; Admin Dose 325 MG; Start 04/25/17 at 09:00 Insulin Glargine (Lantus) 52 unit QHS SC Last administered on 04/27/17 21:00; Admin Dose 52 UNIT; Start 04/25/17 at 21:00 Multivit/Ca Carb/ B Cmplx/FA/Prenat (Isabel-Brenda) 1 tab DAILY PO Last administered on 04/27/17 08:27; Admin Dose 1 TAB; Start 04/25/17 at 09:00 Pantoprazole (Protonix Tab) 40 mg DAILY@06 PO Last administered on 04/28/17 06 :29; Admin Dose 40 MG; Start 04/25/17 at 06:00 Guaifenesin/ Dextromethorphan (Mucinex Dm) 1 tab BID PO Last administered on 20:54; Admin Dose 1 TAB; Start 04/25/17 at 03:15 Hydralazine HCl (Apresoline) 10 mg Q4H PRN IV ELEVATED BLOOD PRESSURE Last administered on 04/28/17 07:04; Admin Dose 10 MG; Start 04/25/17 at 03:30 Diagnostic Test (Pha) (Accu-Chek) 1 ea 02 XX Last administered on 04/28/17 02: 00; Admin Dose 1 EA; Start 04/26/17 at 02:00 Citric Acid/ Sodium Citrate (Bicitra) 30 ml TID PO Last administered on 21:00; Admin Dose 30 ML; Start 04/25/17 at 13:00 Aspirin (Aspirin) 81 mg DAILY PO Last administered on 04/27/17 08:27; Admin Dose 81 MG; Start 04/25/17 at 12:00 Heparin Sodium (Porcine) (Heparin (5000 Units/0.5 ml)) 5,000 unit BID SC Last administered on 04/27/17 20:57; Admin Dose 5,000 UNIT; Start 04/26/17 at 09:00 Miscellaneous Information 1 ea NOTE XX ; Start 04/25/17 at 12:00 Glucose (Glutose) 15 gm Q15M PRN PO DECREASED GLUCOSE; Start 04/25/17 at 12:00 Glucose (Glutose) 22.5 gm Q15M PRN PO DECREASED GLUCOSE; Start 04/25/17 at 12: 00 Dextrose (D50w Syringe) 25 ml Q15M PRN IV DECREASED GLUCOSE; Start 04/25/17 at 12:00 Dextrose (D50w Syringe) 50 ml Q15M PRN IV DECREASED GLUCOSE; Start 04/25/17 at 12:00 Glucagon (Glucagen) 1 mg Q15M PRN IM DECREASED GLUCOSE; Start 04/25/17 at 12: 00 Glucose (Glutose) 15 gm Q15M PRN BUCCAL DECREASED GLUCOSE; Start 04/25/17 at 12:00 Furosemide (Lasix) 20 mg BID IV Last administered on 04/27/17 20:54; Admin Dose 20 MG; Start 04/26/17 at 09:00 Fish Oil (Fish Oil) 2,000 mg BID PO Last administered on 04/27/17 20:54; Admin Dose 2,000 MG; Start 04/27/17 at 21:00 EZETIMIBE (Zetia) 10 mg DAILY PO ; Start 04/28/17 at 09:00 Metoprolol Succinate (Toprol Xl) 25 mg DAILY PO Last administered on 04/27/17 12:01; Admin Dose 25 MG; Start 04/27/17 at 11:00 Morphine Sulfate (morphine) 2 mg Q4H PRN IV Pain; Start 04/28/17 at 09:00 NANY PIREST NP Apr 28, 2017 09:16
[2017-04-28] MEDS: HEPARIN 5,000 UNIT/0.5 ML VIAL SC SCH ×2 (09:21→20:58)
[2017-04-28 09:55] LABS: ERYTHROBLAST% (NRBC) (M) 2 % (0-0); METAMYELOCYTES %M 2 % (0-0); MYELOCYTES % (M) 2 % (0-0); PLATELET ESTIMATE INCREASED
[2017-04-28 10:11] LABS: IRON 210 ug/dl (35-150)
[2017-04-28 10:20] LABS: TOTAL IRON BINDING CAPACITY 277 ug/dl (241-421)
[2017-04-28 10:24] LABS: CK-MB 2.05 ng/ml (0.0-2.4); TROPONIN-I 0.107 ng/ml (0.00-0.12)
--- NOTE | 2017-04-28 11:36 | CONS ---
Date/Time of Note Date/Time of Note DATE: 04/28/17 TIME: 11:33 Assessment/Plan Assessment/Plan Chief Complaint/Hosp Course Pleasant Litzy lopezman with his family present in the room reporting a 30 year history of diabetes mellitus type 2. He had been on oral agent therapy but as his kidneys declined he was transitioned over to a multiple daily injection regimen using Lantus and NovoLog. He intermittently takes full dose Januvia 100 mg despite his renal dysfunction Problems: (1) Diabetes mellitus type 2 in obese Status: Chronic Comment: Blood sugar has drifted a little bit. In the setting we can go ahead and use medication such as Tradjenta. As mentioned yesterday this would be dose adjusted for kidneys and Januvia 25 mg as going to be the preferred outpatient product (2) End stage renal disease on dialysis due to type 2 diabetes mellitus Status: Chronic Comment: As per nephrology consultation. (3) Hepatitis C antibody positive in blood Status: Acute Comment: Please note this new finding viral RNA measurement is pending (4) Hyperuricemia Status: Chronic Comment: On treatment (5) Coronary artery disease Status: Chronic Comment: Quiescent Qualifiers: Coronary Disease-Associated Artery/Lesion type: [place] artery [place] vs. transplanted heart: [place] heart Associated angina: without angina Qualified Code: I25.10 - Coronary artery disease involving [place] coronary artery of [place] heart without angina pectoris (6) Essential hypertension Status: Chronic Comment: Adequate control (7) Diastolic dysfunction Status: Chronic Comment: Adequate control (8) Hyperlipidemia associated with type 2 diabetes mellitus Status: Chronic Comment: On full dose treatment as of now, do not see an indication to use a PCSK9 antibody drug here (9) Obesity (BMI 30.0-34.9) Status: Chronic Comment: Calorie restriction diet Consultation Date/Type/Reason Admit Date/Time Apr 24, 2017 at 19:05 Initial Consult Date 04/27/17 Type of Consultation: Endocrinology Reason for Consultation Diabetes mellitus type 2 on multiple daily injection regimen with complications of end-stage renal disease Referring Provider: NANY PRIEST NP 24 HR Interval Summary Constitutional: no complaints Exam/Review of Systems Vital Signs Vitals Vital Signs Date Time Temp Pulse Resp B/P Pulse Ox O2 Delivery O2 Flow Rate FiO2 04/28/17 08:26 78 04/28/17 07:54 97.9 18 145/67 94 04/28/17 05:43 Nasal Cannula 2.0 04/27/17 17:23 21 Intake and Output 04/27/17 04/27/17 04/28/17 15:00 23:00 07:00 Intake Total 600 ml 500 ml Output Total 400 ml 400 ml Balance 200 ml 100 ml Results No change in exam Result Diagram: 04/28/17 0534 04/28/17 0534 Results 24 hrs Laboratory Tests Test 04/27/17 12:02 04/27/17 14:37 04/27/17 15:05 04/27/17 15:39 Bedside Glucose 111 69 L 79 93 Test 04/27/17 16:23 04/27/17 20:52 04/28/17 02:06 04/28/17 05:34 Bedside Glucose 86 127 189 White Blood Count 14.0 H Red Blood Count 2.87 L Hemoglobin 8.4 L Hematocrit 24.8 L Mean Corpuscular Volume 86.4 Mean Corpuscular Hemoglobin 29.3 Mean Corpuscular Hemoglobin Concent 33.9 Red Cell Distribution Width 15.3 #H Platelet Count 478 H Mean Platelet Volume 13.7 H Neutrophils % Segmented Neutrophils % (Manual) 88 H Band Neutrophils % (Manual) 8 H Lymphocytes % Lymphocytes % (Manual) 2 L Monocytes % Eosinophils % Basophils % Metamyelocytes % (manual) 2 H Myelocytes % (Manual) 2 H Nucleated Red Blood Cells % 2 H Neutrophils # Neutrophils # (Manual) 12.5 H Band Neutrophils # 1.1 H Absolute Lymphocytes (Manual) 0.2 L Lymphocytes # Monocytes # Eosinophils # Basophils # Metamyelocytes # 0.2 H Myelocytes # 0.2 H Nucleated Red Blood Cells # Platelet Estimate INCREASED Prothrombin Time 13.6 Prothrombin Time Ratio 1.1 INR International Normalized Ratio 1.03 Activated Partial Thromboplast Time 25.7 Sodium Level 138 Potassium Level 3.8 Chloride Level 97 Carbon Dioxide Level 26 Anion Gap 19 H Blood Urea Nitrogen 115 H Creatinine 5.02 H Glucose Level 169 Calcium Level 8.9 Phosphorus Level 4.1 Magnesium Level 2.0 Iron Level 210 H Total Iron Binding Capacity 277 Percent Iron Saturation 76 H Total Bilirubin 3.9 H Direct Bilirubin 0.00 Indirect Bilirubin 3.9 H Aspartate Amino Transf (AST/SGOT) 29 Alanine Aminotransferase (ALT/SGPT) 27 Alkaline Phosphatase 70 Creatine Kinase 106 Creatine Kinase Index 1.9 Creatinine Kinase MB (Mass) 2.05 Troponin I 0.107 B-Type Natriuretic Peptide 6620 H Total Protein 7.3 Albumin 4.0 Globulin 3.30 H Albumin/Globulin Ratio 1.21 Random Vancomycin Level 16.6 HIV (1&2) Antibody NEGATIVE Test 04/28/17 09:00 Bedside Glucose 246 H Medications Medications Current Medications Ondansetron HCl (Zofran Tab) 4 mg Q6H PRN PO NAUSEA AND/OR VOMITING; Start at 23:00 Nitroglycerin (Nitroglycerin (Sl Tab) 0.4 Mg) 1 tab Q5M PRN SL CHEST PAIN; Start 04/24/17 at 23:00 Docusate Sodium (Colace) 100 mg Q12H PRN PO CONSTIPATION; Start 04/24/17 at 23 :00 Bisacodyl (Dulcolax) 5 mg DAILY PRN PO CONSTIPATION; Start 04/24/17 at 23:00 Amlodipine Besylate (Norvasc) 5 mg DAILY PO Last administered on 04/28/17 09: 06; Admin Dose 5 MG; Start 04/25/17 at 09:00 Atorvastatin Calcium (Lipitor) 80 mg QHS PO Last administered on 04/27/17 20: 54; Admin Dose 80 MG; Start 04/25/17 at 21:00 Ergocalciferol (Drisdol) 50,000 unit Mo@09 PO Last administered on 04/25/17 21:57; Admin Dose 50,000 UNIT; Start 04/24/17 at 23:00 Ferrous Sulfate (Ferrous Sulfate (Ec)) 325 mg DAILY PO Last administered on 09:06; Admin Dose 325 MG; Start 04/25/17 at 09:00 Insulin Glargine (Lantus) 52 unit QHS SC Last administered on 04/27/17 21:00; Admin Dose 52 UNIT; Start 04/25/17 at 21:00 Multivit/Ca Carb/ B Cmplx/FA/Prenat (Isabel-Brenda) 1 tab DAILY PO Last administered on 04/28/17 09:07; Admin Dose 1 TAB; Start 04/25/17 at 09:00 Pantoprazole (Protonix Tab) 40 mg DAILY@06 PO Last administered on 04/28/17 06 :29; Admin Dose 40 MG; Start 04/25/17 at 06:00 Guaifenesin/ Dextromethorphan (Mucinex Dm) 1 tab BID PO Last administered on 09:06; Admin Dose 1 TAB; Start 04/25/17 at 03:15 Hydralazine HCl (Apresoline) 10 mg Q4H PRN IV ELEVATED BLOOD PRESSURE Last administered on 04/28/17 07:04; Admin Dose 10 MG; Start 04/25/17 at 03:30 Diagnostic Test (Pha) (Accu-Chek) 1 ea 02 XX Last administered on 04/28/17 02: 00; Admin Dose 1 EA; Start 04/26/17 at 02:00 Citric Acid/ Sodium Citrate (Bicitra) 30 ml TID PO Last administered on 09:06; Admin Dose 30 ML; Start 04/25/17 at 13:00 Aspirin (Aspirin) 81 mg DAILY PO Last administered on 04/28/17 09:06; Admin Dose 81 MG; Start 04/25/17 at 12:00 Heparin Sodium (Porcine) (Heparin (5000 Units/0.5 ml)) 5,000 unit BID SC Last administered on 04/28/17 09:21; Admin Dose 5,000 UNIT; Start 04/26/17 at 09:00 Miscellaneous Information 1 ea NOTE XX ; Start 04/25/17 at 12:00 Glucose (Glutose) 15 gm Q15M PRN PO DECREASED GLUCOSE; Start 04/25/17 at 12:00 Glucose (Glutose) 22.5 gm Q15M PRN PO DECREASED GLUCOSE; Start 04/25/17 at 12: 00 Dextrose (D50w Syringe) 25 ml Q15M PRN IV DECREASED GLUCOSE; Start 04/25/17 at 12:00 Dextrose (D50w Syringe) 50 ml Q15M PRN IV DECREASED GLUCOSE; Start 04/25/17 at 12:00 Glucagon (Glucagen) 1 mg Q15M PRN IM DECREASED GLUCOSE; Start 04/25/17 at 12: 00 Glucose (Glutose) 15 gm Q15M PRN BUCCAL DECREASED GLUCOSE; Start 04/25/17 at 12:00 Furosemide (Lasix) 20 mg BID IV Last administered on 04/28/17 09:05; Admin Dose 20 MG; Start 04/26/17 at 09:00 Fish Oil (Fish Oil) 2,000 mg BID PO Last administered on 04/28/17 09:06; Admin Dose 2,000 MG; Start 04/27/17 at 21:00 EZETIMIBE (Zetia) 10 mg DAILY PO Last administered on 04/28/17 09:07; Admin Dose 10 MG; Start 04/28/17 at 09:00 Metoprolol Succinate (Toprol Xl) 25 mg DAILY PO Last administered on 04/28/17 09:07; Admin Dose 25 MG; Start 04/27/17 at 11:00 Morphine Sulfate 2 mg 2 mg Q4H PRN IV Pain Last administered on 04/28/17 09:02 ; Admin Dose 2 MG; Start 04/28/17 at 09:00 Vancomycin HCl (Vancocin) 250 ml @ 125 mls/hr ONCE ONCE IVPB ; Start 04/28/17 at 22:00; Stop 04/28/17 at 23:59 MARA GRAYSON MD Apr 28, 2017 11:36
--- NOTE | 2017-04-28 12:33 | CONS ---
Date/Time of Note Date/Time of Note DATE: 04/28/17 TIME: 12:29 Assessment/Plan Assessment/Plan Chief Complaint/Hosp Course 66 M with PMHx of HTN, DM II, HL, H/o CKD due to diabetic nehropathy as per patient, he follows with outside physician who doesn't come here. pt presented with SOB, Congestion and worsenign renal failure, he is also noted to have Hyperkalemia with K 6.0 and decreased urine output . Problems: Additional Assessment/Plan 1. Oliguric TROY on CKD III/IV Due to possible Cardiorenal syndrome with worsening renal failue due to diabetic nephropathy- failed outpatient PO lasix therapy - progressed to ESRD, plan is to start HD tomorrow 2. H/o CKD due to diabetic nehropathy as per pt was stage IV with eGFR 15 as outpatient 3. Acute hyperkalemia due to TROY on CKD 4. Metabolic acidosis due to worsenign renal failure 5. H/ CAD S/p previous coronary angiogram as per patient 6. Hypertension 7. Type II DM 8. 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 - who agreed with initiation of HD, pt has recurrent fluid overload episodes and Failed outpatient PO lasix continue to hold valsartan/HCTZ d/w with patient at bedside about his very low renal function and need of dialysis.- all family members included in discussion, they agreed for HD initation but pt wants to have only one prick for HD catheter, so we will arrange his permacath on Saturday has been consulted on case Consultation Date/Type/Reason Admit Date/Time Apr 24, 2017 at 19:05 Initial Consult Date 04/25/17 Type of Consultation: NEPHROLOGY Referring Provider: NAYN PRIEST NP 24 HR Interval Summary Free Text/Dictation BUN 115, Cr 5.02, BP stable, Still SOB when lie down Exam/Review of Systems Vital Signs Vitals Vital Signs Date Time Temp Pulse Resp B/P Pulse Ox O2 Delivery O2 Flow Rate FiO2 04/28/17 12:26 97.9 77 18 161/76 94 04/28/17 08:00 Nasal Cannula 2.0 04/27/17 17:23 21 Intake and Output 04/27/17 04/27/17 04/28/17 15:00 23:00 07:00 Intake Total 600 ml 500 ml Output Total 400 ml 400 ml Balance 200 ml 100 ml Exam Constitutional: alert Respiratory: clear to auscultation, diminished breath sounds, normal air movement Cardiovascular: nl pulses, regular rate and rhythm Gastrointestinal: non-tender, soft Musculoskeletal: muscle weakness, nl extremities to inspection, swelling Extremities: calf tenderness, normal pulses 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: PATROL POLICE LIEUTENANT II-XII intact, nl mental status, nl speech, nl strength Results Result Diagram: 04/28/17 0534 04/28/17 0534 Results 24 hrs Laboratory Tests Test 04/27/17 14:37 04/27/17 15:05 04/27/17 15:39 04/27/17 16:23 Bedside Glucose 69 L 79 93 86 Test 04/27/17 20:52 04/28/17 02:06 04/28/17 05:34 04/28/17 09:00 Bedside Glucose 127 189 246 H White Blood Count 14.0 H Red Blood Count 2.87 L Hemoglobin 8.4 L Hematocrit 24.8 L Mean Corpuscular Volume 86.4 Mean Corpuscular Hemoglobin 29.3 Mean Corpuscular Hemoglobin Concent 33.9 Red Cell Distribution Width 15.3 #H Platelet Count 478 H Mean Platelet Volume 13.7 H Neutrophils % Segmented Neutrophils % (Manual) 88 H Band Neutrophils % (Manual) 8 H Lymphocytes % Lymphocytes % (Manual) 2 L Monocytes % Eosinophils % Basophils % Metamyelocytes % (manual) 2 H Myelocytes % (Manual) 2 H Nucleated Red Blood Cells % 2 H Neutrophils # Neutrophils # (Manual) 12.5 H Band Neutrophils # 1.1 H Absolute Lymphocytes (Manual) 0.2 L Lymphocytes # Monocytes # Eosinophils # Basophils # Metamyelocytes # 0.2 H Myelocytes # 0.2 H Nucleated Red Blood Cells # Platelet Estimate INCREASED Prothrombin Time 13.6 Prothrombin Time Ratio 1.1 INR International Normalized Ratio 1.03 Activated Partial Thromboplast Time 25.7 Sodium Level 138 Potassium Level 3.8 Chloride Level 97 Carbon Dioxide Level 26 Anion Gap 19 H Blood Urea Nitrogen 115 H Creatinine 5.02 H Glucose Level 169 Calcium Level 8.9 Phosphorus Level 4.1 Magnesium Level 2.0 Iron Level 210 H Total Iron Binding Capacity 277 Percent Iron Saturation 76 H Ferritin 1090.0 H Total Bilirubin 3.9 H Direct Bilirubin 0.00 Indirect Bilirubin 3.9 H Aspartate Amino Transf (AST/SGOT) 29 Alanine Aminotransferase (ALT/SGPT) 27 Alkaline Phosphatase 70 Creatine Kinase 106 Creatine Kinase Index 1.9 Creatinine Kinase MB (Mass) 2.05 Troponin I 0.107 B-Type Natriuretic Peptide 6620 H Total Protein 7.3 Albumin 4.0 Globulin 3.30 H Albumin/Globulin Ratio 1.21 Random Vancomycin Level 16.6 HIV (1&2) Antibody NEGATIVE Medications Medications Current Medications Ondansetron HCl (Zofran Tab) 4 mg Q6H PRN PO NAUSEA AND/OR VOMITING; Start at 23:00 Nitroglycerin (Nitroglycerin (Sl Tab) 0.4 Mg) 1 tab Q5M PRN SL CHEST PAIN; Start 04/24/17 at 23:00 Docusate Sodium (Colace) 100 mg Q12H PRN PO CONSTIPATION; Start 04/24/17 at 23 :00 Bisacodyl (Dulcolax) 5 mg DAILY PRN PO CONSTIPATION; Start 04/24/17 at 23:00 Amlodipine Besylate (Norvasc) 5 mg DAILY PO Last administered on 04/28/17 09: 06; Admin Dose 5 MG; Start 04/25/17 at 09:00 Atorvastatin Calcium (Lipitor) 80 mg QHS PO Last administered on 04/27/17 20: 54; Admin Dose 80 MG; Start 04/25/17 at 21:00 Ergocalciferol (Drisdol) 50,000 unit Mo@09 PO Last administered on 04/25/17 21:57; Admin Dose 50,000 UNIT; Start 04/24/17 at 23:00 Ferrous Sulfate (Ferrous Sulfate (Ec)) 325 mg DAILY PO Last administered on 09:06; Admin Dose 325 MG; Start 04/25/17 at 09:00 Insulin Glargine (Lantus) 52 unit QHS SC Last administered on 04/27/17 21:00; Admin Dose 52 UNIT; Start 04/25/17 at 21:00 Multivit/Ca Carb/ B Cmplx/FA/Prenat (Isabel-Brenda) 1 tab DAILY PO Last administered on 04/28/17 09:07; Admin Dose 1 TAB; Start 04/25/17 at 09:00 Pantoprazole (Protonix Tab) 40 mg DAILY@06 PO Last administered on 04/28/17 06 :29; Admin Dose 40 MG; Start 04/25/17 at 06:00 Guaifenesin/ Dextromethorphan (Mucinex Dm) 1 tab BID PO Last administered on 09:06; Admin Dose 1 TAB; Start 04/25/17 at 03:15 Hydralazine HCl (Apresoline) 10 mg Q4H PRN IV ELEVATED BLOOD PRESSURE Last administered on 04/28/17 07:04; Admin Dose 10 MG; Start 04/25/17 at 03:30 Diagnostic Test (Pha) (Accu-Chek) 1 ea 02 XX Last administered on 04/28/17 02: 00; Admin Dose 1 EA; Start 04/26/17 at 02:00 Citric Acid/ Sodium Citrate (Bicitra) 30 ml TID PO Last administered on 09:06; Admin Dose 30 ML; Start 04/25/17 at 13:00 Aspirin (Aspirin) 81 mg DAILY PO Last administered on 04/28/17 09:06; Admin Dose 81 MG; Start 04/25/17 at 12:00 Heparin Sodium (Porcine) (Heparin (5000 Units/0.5 ml)) 5,000 unit BID SC Last administered on 04/28/17 09:21; Admin Dose 5,000 UNIT; Start 04/26/17 at 09:00 Miscellaneous Information 1 ea NOTE XX ; Start 04/25/17 at 12:00 Glucose (Glutose) 15 gm Q15M PRN PO DECREASED GLUCOSE; Start 04/25/17 at 12:00 Glucose (Glutose) 22.5 gm Q15M PRN PO DECREASED GLUCOSE; Start 04/25/17 at 12: 00 Dextrose (D50w Syringe) 25 ml Q15M PRN IV DECREASED GLUCOSE; Start 04/25/17 at 12:00 Dextrose (D50w Syringe) 50 ml Q15M PRN IV DECREASED GLUCOSE; Start 04/25/17 at 12:00 Glucagon (Glucagen) 1 mg Q15M PRN IM DECREASED GLUCOSE; Start 04/25/17 at 12: 00 Glucose (Glutose) 15 gm Q15M PRN BUCCAL DECREASED GLUCOSE; Start 04/25/17 at 12:00 Furosemide (Lasix) 20 mg BID IV Last administered on 04/28/17 09:05; Admin Dose 20 MG; Start 04/26/17 at 09:00 Fish Oil (Fish Oil) 2,000 mg BID PO Last administered on 04/28/17 09:06; Admin Dose 2,000 MG; Start 04/27/17 at 21:00 EZETIMIBE (Zetia) 10 mg DAILY PO Last administered on 04/28/17 09:07; Admin Dose 10 MG; Start 04/28/17 at 09:00 Metoprolol Succinate (Toprol Xl) 25 mg DAILY PO Last administered on 04/28/17 09:07; Admin Dose 25 MG; Start 04/27/17 at 11:00 Morphine Sulfate 2 mg 2 mg Q4H PRN IV Pain Last administered on 04/28/17 09:02 ; Admin Dose 2 MG; Start 04/28/17 at 09:00 Vancomycin HCl (Vancocin) 250 ml @ 125 mls/hr ONCE ONCE IVPB ; Start 04/28/17 at 22:00; Stop 04/28/17 at 23:59 Linagliptin (Tradjenta) 5 mg DAILY PO ; Start 04/28/17 at 12:00 RAQUEL MCDOWELL MD Apr 28, 2017 12:33
[2017-04-28] MEDS: LINAGLIPTIN 5 MG TABLET PO SCH (12:40)
[2017-04-28 13:50] LABS: TROPONIN-I 0.08 ng/ml (0.00-0.12)
[2017-04-28 13:51] LABS: CK-MB 1.6 ng/ml (0.0-2.4)
--- NOTE | 2017-04-28 20:28 | PN ---
DATE: 04/28/2017 SUBJECTIVE: No events overnight. The patient is alert, looks comfortable. Complaining of cough. No fevers overnight. Daughter at bedside. VITAL SIGNS: Temperature 98.6, pulse 77, respirations 18, blood pressure 161/76, saturation 94% on 4 liters. LABORATORY: WBC 14, H and H 8.4 and 24.8, platelets 478, neutrophils 88, bands 8, lymphs 2. BUN 11 6, creatinine 5.02. ANTIMICROBIALS: The patient is on vanco. MICROBIOLOGY: Blood culture grew coag-negative Staph species. Urine culture grew Strep, less than 10,000 colonies. Repeat blood cultures negative. PHYSICAL EXAMINATION: GENERAL: Fragile, chronically ill-appearing, elderly man who is in no distress. HEENT: Head atraumatic, normocephalic. Sclerae anicteric. Buccal mucosa dry. NECK: Supple, trachea midline. CHEST: Rise symmetrical. Breath sounds with bilateral scattered crackles. HEART: S1, S2. ABDOMEN: Soft, bowel tones present. EXTREMITIES: Without cyanosis. ASSESSMENT: 1. Systemic inflammatory response syndrome. 2. Acute on chronic kidney disease. 3. Coag-negative Staphylococcus bacteremia consistent with contaminant. 4. Mild urinary tract infection. 5. Diabetes. 6. Coronary artery disease. 7. Hypertension. PLAN: The patient remains stable overnight. He is scheduled for PermCath placement tomorrow and pl an to start him on hemodialysis. Repeat blood cultures negative. We are going to discontinue vanco mycin and observe him. Discussed with the patient and family at bedside. Dictated By: MARIELA BANGURA HOURLY SIGN LANGUAGE INTERPRETER for LOYD SOTELO MD NI/NTS Conf#: [id number] DID#: [id number] CC: MARVIN ROTH MD;*EndCC*
[2017-04-28] MEDS: ATORVASTATIN 80 MG TAB PO SCH (20:56)
[2017-04-28] MEDS: INSULIN GLARGINE [LANtus] 3 ML PEN SC SCH (21:00)
[2017-04-28] MEDS ORDERED: VANCOMYCIN 1 GM in NS 250 ML IVPB ONE (22:00)
[2017-04-29] VITALS (26 sets, daily range): BP systolic 109–172; BP diastolic 49–76; PULSE 62–99; RESP 14–20
[2017-04-29] MEDS: ALBUTEROL/IPRATROPIUM (NEB) 3 ML AMP HHN SCH ×6 (01:00→20:19)
[2017-04-29] MEDS: ACCU-CHEK XX SCH (01:59)
[2017-04-29] MEDS: PANTOPRAZOLE (EC) 40 MG TAB PO SCH (06:02)
[2017-04-29 06:35] LABS: MAGNESIUM 1.9 mg/dl (1.7-2.5); PHOSPHORUS 4.4 mg/dl (2.5-4.9)
[2017-04-29 06:42] LABS: CALCIUM 8.8 mg/dl (8.4-10.2); CREATININE 5.02 mg/dl (0.61-1.24); POTASSIUM 4.3 mmol/L (3.5-5.1)
--- NOTE | 2017-04-29 07:12 | PN ---
DATE: 04/27/2017 INFECTIOUS DISEASE PROGRESS NOTE SUBJECTIVE: No acute events overnight. Patient is awake, sitting in bed, looks comfortable. No fe vers. WBC 15.2, platelets 423. No shift, no bands. BUN 117, creatinine 5.61. ANTIMICROBIALS: Vancomycin. MICROBIOLOGY: Blood culture grew coag-negative staph species, 1 out of 2 sets. Urine culture grew Strep agalactiae less than 10,000 colonies. PHYSICAL EXAMINATION: GENERAL: This is an obese, chronically ill-appearing, elderly Romansh male who is awake, in no dis tress. HEENT: Atraumatic, normocephalic. Sclerae anicteric. Buccal mucosa dry. NECK: Supple. CHEST: Rises symmetrical. Breath sounds diminished with scattered crackles to bases. HEART: S1, S2. ABDOMEN: Soft. Bowel sounds present. EXTREMITIES: With bilateral lower extremities trace edema. ASSESSMENT: 1. Status post acute hypoxemia secondary to fluid overload. 2. Acute on chronic kidney disease. 3. Coagulase-negative Staphylococcus bacteremia, possibly contaminant. 4. Mild streptococcal urinary tract infection. 5. History of deep venous thrombosis and diabetes. PLAN: The patient is stable. We are going to repeat blood cultures. Continue management as per pr imary team. The patient may possibly need to be started on hemodialysis as per nephrology recommend ations. Dictated By: MARIELA BANGURA LENS GRINDER APPRENTICE for LOYD SOTELO MD NI/NTS Conf#: [id number] DID#: [id number] CC: MARVIN ROTH MD;*EndCC*
[2017-04-29] MEDS: INSULIN ASPART [NOVOLOG] 3 ML PEN SC SCH ×8 (07:55→21:00)
[2017-04-29 08:11] LABS: ABNORMAL IP MESSAGE 1; BASOPHIL # 0.1 10^3/ul (0.0-0.1); BASOPHILS % 0.3 % (0.0-2.0); EOSINOPHILS # 0.3 10^3/ul (0.0-0.5); EOSINOPHILS % 2.1 % (0.0-7.0); HEMATOCRIT 21.3 % (42.0-52.0); LYMPHOCYTES # 3.1 10^3/ul (0.8-2.9); LYMPHOCYTES % 18.9 % (15.0-51.0); MEAN CORPUSCULAR HEMOGLOBIN 28.2 pg (29.0-33.0); MEAN CORPUSCULAR HGB CONC 31.5 g/dl (32.0-37.0); MEAN CORPUSCULAR VOLUME 89.5 fl (82.0-101.0); MEAN PLATELET VOLUME 12.3 fl (7.4-10.4); MONOCYTE # 1.6 10^3/ul (0.3-0.9); MONOCYTES % 9.7 % (0.0-11.0); NEUTROPHIL # 10.5 10^3/ul (1.6-7.5); NEUTROPHILS % 64.9 % (39.0-77.0); NUCLEATED RED BLOOD CELLS # 0.1 10^3/ul (0.0-0.0); NUCLEATED RED BLOOD CELLS% 0.4 /100WBC (0.0-0.0); PLATELET COUNT 318 10^3/UL (140-415); POSITIVE DIFF @See below; RED BLOOD COUNT 2.38 10^6/ul (4.70-6.10); RED CELL DISTRIBUTION WIDTH 16.5 % (11.5-14.5); WHITE BLOOD COUNT 16.2 10^3/ul (4.8-10.8)
[2017-04-29 08:14] LABS: HEMOGLOBIN 7.1 g/dl (14.0-18.0)
[2017-04-29] MEDS: FISH OIL 1,000 MG CAP PO SCH ×2 (08:35→21:13)
[2017-04-29] MEDS: GUAIFENESIN/DM (SR) TAB PO SCH ×2 (08:35→21:07)
[2017-04-29] MEDS: EZETIMIBE 10 MG TAB PO SCH (08:35)
[2017-04-29] MEDS: FERROUS SULFATE (EC) 325 MG TAB PO SCH (08:35)
[2017-04-29] MEDS: MULTIVIT/CA CARB/B CMPLX/FA TAB PO SCH (08:35)
[2017-04-29] MEDS: CITRIC ACID/SODIUM CITRATE 15 ML CUP PO SCH ×3 (08:35→21:06)
[2017-04-29] MEDS: LINAGLIPTIN 5 MG TABLET PO SCH (08:35)
[2017-04-29] MEDS: HEPARIN 5,000 UNIT/0.5 ML VIAL SC SCH ×2 (08:36→21:09)
[2017-04-29] MEDS: ERGOCALCIFEROL 50,000 UNIT CAP PO SCH ×2 (09:00→17:21)
[2017-04-29] MEDS: ASPIRIN 81 MG TAB PO SCH (09:18)
[2017-04-29] MEDS: FUROSEMIDE 20 MG INJ IV SCH ×2 (09:19→21:06)
[2017-04-29] MEDS: METOPROLOL (XL) 25 MG TAB PO SCH (09:19)
[2017-04-29] MEDS: AMLODIPINE 5 MG TAB PO SCH (09:19)
--- NOTE | 2017-04-29 09:34 | RADRPT ---
PROCEDURE: US Bilateral Upper Extremity Veins. CLINICAL INDICATION: Bilateral upper extremity swelling. Venous diameter for dialysis fistula plan hemanth. TECHNIQUE: Multiple longitudinal and transverse images of the bilateral upper extremity venous luz e was obtained with stovall scale and color Doppler imaging. COMPARISON: None available FINDINGS: There is thrombosis of the right cephalic vein in the antecubital fossa region. The subclavian veins , axillary, brachial, basilic, and cephalic veins are otherwise patent bilaterally. There is normal flow with augmentation and compressibility throughout. There is a PICC line in the right basilic ve in. Diameters are as follows: Right arm cephalic upper: 0.21 cm. Right arm cephalic mid: 0.33 cm. Right arm cephalic lower: 0.30 cm. Thrombosed. Right forearm cephalic upper: 0.23 cm. Right forearm cephalic mid: 0.27 cm. Right forearm cephalic lower: 0.22 cm. Right arm basilic upper: 0.49 cm. Right arm basilic mid: 0.26 cm. Right arm basilic lower: 0.18 cm. Right forearm basilic upper: 0.09 cm. Right forearm basilic mid: 0.13 cm. Right forearm basilic lower: 0.09 cm. Left arm cephalic upper: 0.25 cm. Left arm cephalic mid: 0.24 cm. Left arm cephalic lower: 0.25 cm. Left forearm cephalic upper: 0.18 cm. Left forearm cephalic mid: 0.31 cm. Left forearm cephalic lower: 0.24 cm. Left arm basilic upper: 0.32 cm. Left arm basilic mid: 0.21 cm. Left arm basilic lower: 0.27 cm. Left forearm basilic upper: 0.09 cm. Left forearm basilic mid: Not visualized. Left forearm basilic lower: Not visualized. IMPRESSION: 1. Thrombosis of the right cephalic vein in the antecubital fossa region. 2. PICC line in the right basilic vein. 3. The diameter of the vessels as indicated above. RPTAT: QQ .Brian Riley MD, MD Date Time Electronically viewed and signed by .Brian Riley MD, on 04/29/2017 09:34 .R/
--- NOTE | 2017-04-29 11:18 | RADRPT ---
PROCEDURE: US bilateral upper extremity arterial system. CLINICAL INDICATION: Bilateral upper extremity pain and swelling. TECHNIQUE: Multiple longitudinal and transverse images of the bilateral upper extremity arterial t ree was obtained with stovall scale pulsed Doppler, and color Doppler imaging. COMPARISON: None available FINDINGS: The bilateral subclavian artery, axillary artery, brachial artery, radial artery, and ulnar artery a re all normal. There is no thrombus or occlusion. There is no significant stenosis. There is normal triphasic flow throughout bilaterally. Peak systolic velocities are as follows: Right: Subclavian: 150 cm/sec Axillary: 168 cm/sec Brachial: 124 cm/sec Radial: 124 cm/sec Ulnar: 126 cm/sec The right brachial artery systolic pressure is 199 mmHg. Left: Subclavian: 139 cm/sec Axillary: 111 cm/sec Brachial: 165 cm/sec Radial: 176 cm/sec Ulnar: 111 cm/sec The left brachial artery systolic pressure is 198 mmHg. IMPRESSION: 1. Normal bilateral upper extremity arterial system. RPTAT: QQ .Brian Riley MD, MD Date Time Electronically viewed and signed by .Brian Riley MD, on 04/29/2017 11:18 .R/
[2017-04-29] MEDS ORDERED: SOD CHLORIDE 0.9% 250 ML IV* ONE ×2 (12:20→22:01)
--- NOTE | 2017-04-29 12:20 | PN ---
Date/Time of Note Date/Time of Note DATE: 04/29/17 TIME: 12:12 Assessment/Plan VTE Prophylaxis VTE Prophylaxis Intervention: heparin Lines/Catheters IV [facility]from [facility] Mid Line Urinary Cath still in place: No Assessment/Plan Chief Complaint/Hosp Course Assessment and plan 1. Acute respiratory failure. Secondary to fluid overload. Continue on breathing tx and oxygen. Titrate down as tolerated. Tentative plan for dialysis for fluid removal. 2. Non-ST elevated myocardial infarction suspect type II event considering underlying worsening renal function. Continue on antiplatelet therapy. Assurance Manager Insurance following. Continue recommendations. 3. Gram-positive bacteremia. Suspect contaminant. ID consult is following. Antibiotic regimen per ID consult. 4. Acute on chronic CHF with diastolic dysfunction. Continue on cardiovascular medications. Plan for dialysis 5. Pulmonary hypertension. Noted with PA systolic pressure of 44 mmHg. Continue on O2. 6. CAD. Patient is status post PTCA in the past. Continue on antiplatelet therapy. 7. Metabolic acidosis secondary to worsening renal function. Continue on Bicitra per telephoto engineer. 8. Dyslipidemia. Continue on statin medication. 9. Diabetes. Continue on insulin regimen. Adjust as needed. 10. Essential hypertension continue antihypertensives and adjust needed. 11. Left popliteal vein DVT. Patient did have prior history of DVT in the lower extremities and was taking Xarelto at home. Discontinued now due to worsening renal function. Follow-up with vascular surgeon or conditions. 12. Acute on chronic kidney disease. With worsening renal function. Plan for dialysis. Plan for dialysis cath placement today. Disposition and plan: Patient noted to be with worse anemia. Plan for blood transfusion. Plan for hemodialysis access placement today. Follow-up with vascular surgeon. Follow-up on chest radiograph. Discussed plan of care with Dr. York Problems: Subjective 24 Hr Interval Summary Free Text/Dictation Reports having some shortness of breath. Still seen with some symptomatic orthopnea. Family at bedside. Exam/Review of Systems Vital Signs Vitals Vital Signs Date Time Temp Pulse Resp B/P Pulse Ox O2 Delivery O2 Flow Rate FiO2 04/29/17 11:16 97.4 71 20 132/60 96 04/29/17 08:04 Nasal Cannula 2.0 04/27/17 17:23 21 Intake and Output 04/28/17 04/28/17 04/29/17 14:59 22:59 06:59 Intake Total 720 ml 300 ml Output Total 600 ml 500 ml Balance 120 ml -200 ml Exam Constitutional: alert, oriented Head: normocephalic Eyes: nl conjunctiva Neck: non-tender, supple Respiratory: other (Diminished and some rhonchi noted on right lung field) Cardiovascular: other (Regular rate) Musculoskeletal: swelling (Bilateral lower extremities) 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: LABOR COMMISSIONER II-XII intact, nl mental status, nl speech Results Result Diagram: 04/29/17 0515 04/29/17 0515 Results 24 hrs Laboratory Tests Test 04/28/17 12:31 04/28/17 17:56 04/28/17 20:34 04/29/17 00:52 Bedside Glucose 207 243 H 227 H 258 H Test 04/29/17 05:15 04/29/17 08:24 White Blood Count 16.2 H Red Blood Count 2.38 L Hemoglobin 7.1 L Hematocrit 21.3 L Mean Corpuscular Volume 89.5 Mean Corpuscular Hemoglobin 28.2 L Mean Corpuscular Hemoglobin Concent 31.5 L Red Cell Distribution Width 16.5 H Platelet Count 318 # Mean Platelet Volume 12.3 H Neutrophils % 64.9 Lymphocytes % 18.9 Monocytes % 9.7 Eosinophils % 2.1 Basophils % 0.3 Nucleated Red Blood Cells % 0.4 H Neutrophils # 10.5 H Lymphocytes # 3.1 H Monocytes # 1.6 H Eosinophils # 0.3 Basophils # 0.1 Nucleated Red Blood Cells # 0.1 H Sodium Level 136 Potassium Level 4.3 Chloride Level 95 L Carbon Dioxide Level 30 Anion Gap 15 Blood Urea Nitrogen 117 H Creatinine 5.02 H Glucose Level 284 #H Calcium Level 8.8 Phosphorus Level 4.4 Magnesium Level 1.9 Bedside Glucose 316 H Medications Medications Current Medications Ondansetron HCl (Zofran Tab) 4 mg Q6H PRN PO NAUSEA AND/OR VOMITING; Start at 23:00 Nitroglycerin (Nitroglycerin (Sl Tab) 0.4 Mg) 1 tab Q5M PRN SL CHEST PAIN; Start 04/24/17 at 23:00 Docusate Sodium (Colace) 100 mg Q12H PRN PO CONSTIPATION; Start 04/24/17 at 23 :00 Bisacodyl (Dulcolax) 5 mg DAILY PRN PO CONSTIPATION; Start 04/24/17 at 23:00 Amlodipine Besylate (Norvasc) 5 mg DAILY PO Last administered on 04/29/17 09: 19; Admin Dose 5 MG; Start 04/25/17 at 09:00 Atorvastatin Calcium (Lipitor) 80 mg QHS PO Last administered on 04/28/17 20: 56; Admin Dose 80 MG; Start 04/25/17 at 21:00 Ergocalciferol (Drisdol) 50,000 unit Mo@09 PO Last administered on 04/25/17 21:57; Admin Dose 50,000 UNIT; Start 04/24/17 at 23:00 Ferrous Sulfate (Ferrous Sulfate (Ec)) 325 mg DAILY PO Last administered on 09:06; Admin Dose 325 MG; Start 04/25/17 at 09:00 Insulin Glargine (Lantus) 52 unit QHS SC Last administered on 04/28/17 21:00; Admin Dose 52 UNIT; Start 04/25/17 at 21:00 Multivit/Ca Carb/ B Cmplx/FA/Prenat (Isabel-Brenda) 1 tab DAILY PO Last administered on 04/28/17 09:07; Admin Dose 1 TAB; Start 04/25/17 at 09:00 Pantoprazole (Protonix Tab) 40 mg DAILY@06 PO Last administered on 04/29/17 06 :02; Admin Dose 40 MG; Start 04/25/17 at 06:00 Guaifenesin/ Dextromethorphan (Mucinex Dm) 1 tab BID PO Last administered on 20:56; Admin Dose 1 TAB; Start 04/25/17 at 03:15 Hydralazine HCl (Apresoline) 10 mg Q4H PRN IV ELEVATED BLOOD PRESSURE Last administered on 04/28/17 07:04; Admin Dose 10 MG; Start 04/25/17 at 03:30 Diagnostic Test (Pha) (Accu-Chek) 1 ea 02 XX Last administered on 04/29/17 01: 59; Admin Dose 1 EA; Start 04/26/17 at 02:00 Citric Acid/ Sodium Citrate (Bicitra) 30 ml TID PO Last administered on 20:55; Admin Dose 30 ML; Start 04/25/17 at 13:00 Aspirin (Aspirin) 81 mg DAILY PO Last administered on 04/29/17 09:18; Admin Dose 81 MG; Start 04/25/17 at 12:00 Heparin Sodium (Porcine) (Heparin (5000 Units/0.5 ml)) 5,000 unit BID SC Last administered on 04/28/17 20:58; Admin Dose 5,000 UNIT; Start 04/26/17 at 09:00 Miscellaneous Information 1 ea NOTE XX ; Start 04/25/17 at 12:00 Glucose (Glutose) 15 gm Q15M PRN PO DECREASED GLUCOSE; Start 04/25/17 at 12:00 Glucose (Glutose) 22.5 gm Q15M PRN PO DECREASED GLUCOSE; Start 04/25/17 at 12: 00 Dextrose (D50w Syringe) 25 ml Q15M PRN IV DECREASED GLUCOSE; Start 04/25/17 at 12:00 Dextrose (D50w Syringe) 50 ml Q15M PRN IV DECREASED GLUCOSE; Start 04/25/17 at 12:00 Glucagon (Glucagen) 1 mg Q15M PRN IM DECREASED GLUCOSE; Start 04/25/17 at 12: 00 Glucose (Glutose) 15 gm Q15M PRN BUCCAL DECREASED GLUCOSE; Start 04/25/17 at 12:00 Furosemide (Lasix) 20 mg BID IV Last administered on 04/29/17 09:19; Admin Dose 20 MG; Start 04/26/17 at 09:00 Fish Oil (Fish Oil) 2,000 mg BID PO Last administered on 04/28/17 20:56; Admin Dose 2,000 MG; Start 04/27/17 at 21:00 EZETIMIBE (Zetia) 10 mg DAILY PO Last administered on 04/28/17 09:07; Admin Dose 10 MG; Start 04/28/17 at 09:00 Metoprolol Succinate (Toprol Xl) 25 mg DAILY PO Last administered on 04/29/17 09:19; Admin Dose 25 MG; Start 04/27/17 at 11:00 Morphine Sulfate (morphine) 2 mg Q4H PRN IV Pain Last administered on 22:51; Admin Dose 2 MG; Start 04/28/17 at 09:00 Linagliptin 5 mg 5 mg DAILY PO Last administered on 04/28/17 12:40; Admin Dose 5 MG; Start 04/28/17 at 12:00 Cefepime HCl/ Dextrose (Maxipime/D5W) 50 ml @ 100 mls/hr Q24H IVPB ; Start 04/29/17 at 13:00 PERRY JUAREZ Apr 29, 2017 12:19
--- NOTE | 2017-04-29 12:25 | CONS ---
Date/Time of Note Date/Time of Note DATE: 04/29/17 TIME: 12:21 Assessment/Plan Assessment/Plan Additional Assessment/Plan Volume overload Acute kidney injury with history of CKD Acute decompensated diastolic congestive heart failure Diabetes CAD with history of PCI over 10 years ago Hypertension Dyslipidemia History of DVT, previously on anticoagulation Acute blood loss anemia -Patient plan to be started on hemodialysis. Anticoagulation on hold secondary to worsening anemia and patient planned for catheter placement. Would recommend blood transfusion given worsening anemia. Consultation Date/Type/Reason Admit Date/Time Apr 24, 2017 at 19:05 Initial Consult Date 04/27/17 Type of Consultation: cv Referring Provider: NANY PRIEST NP 24 HR Interval Summary Free Text/Dictation Patient with increased shortness of breath. Denies chest pain Exam/Review of Systems Vital Signs Vitals Vital Signs Date Time Temp Pulse Resp B/P Pulse Ox O2 Delivery O2 Flow Rate FiO2 04/29/17 12:12 62 04/29/17 11:16 97.4 20 132/60 96 04/29/17 08:04 Nasal Cannula 2.0 04/27/17 17:23 21 Intake and Output 04/28/17 04/28/17 04/29/17 15:00 23:00 07:00 Intake Total 720 ml 300 ml Output Total 600 ml 500 ml Balance 120 ml -200 ml Exam Appears uncomfortable Constitutional: alert, obese Head: normocephalic Respiratory: other (Coarse breath sounds bilaterally) Cardiovascular: other (S1-S2 heard), regular rate and rhythm Gastrointestinal: bowel sounds, non-tender, soft Extremities: edema Results Result Diagram: 04/29/17 0515 04/29/17 0515 Results 24 hrs Laboratory Tests Test 04/28/17 12:31 04/28/17 17:56 04/28/17 20:34 04/29/17 00:52 Bedside Glucose 207 243 H 227 H 258 H Test 04/29/17 05:15 04/29/17 08:24 White Blood Count 16.2 H Red Blood Count 2.38 L Hemoglobin 7.1 L Hematocrit 21.3 L Mean Corpuscular Volume 89.5 Mean Corpuscular Hemoglobin 28.2 L Mean Corpuscular Hemoglobin Concent 31.5 L Red Cell Distribution Width 16.5 H Platelet Count 318 # Mean Platelet Volume 12.3 H Neutrophils % 64.9 Lymphocytes % 18.9 Monocytes % 9.7 Eosinophils % 2.1 Basophils % 0.3 Nucleated Red Blood Cells % 0.4 H Neutrophils # 10.5 H Lymphocytes # 3.1 H Monocytes # 1.6 H Eosinophils # 0.3 Basophils # 0.1 Nucleated Red Blood Cells # 0.1 H Sodium Level 136 Potassium Level 4.3 Chloride Level 95 L Carbon Dioxide Level 30 Anion Gap 15 Blood Urea Nitrogen 117 H Creatinine 5.02 H Glucose Level 284 #H Calcium Level 8.8 Phosphorus Level 4.4 Magnesium Level 1.9 Bedside Glucose 316 H Medications Medications Current Medications Ondansetron HCl (Zofran Tab) 4 mg Q6H PRN PO NAUSEA AND/OR VOMITING; Start at 23:00 Nitroglycerin (Nitroglycerin (Sl Tab) 0.4 Mg) 1 tab Q5M PRN SL CHEST PAIN; Start 04/24/17 at 23:00 Docusate Sodium (Colace) 100 mg Q12H PRN PO CONSTIPATION; Start 04/24/17 at 23 :00 Bisacodyl (Dulcolax) 5 mg DAILY PRN PO CONSTIPATION; Start 04/24/17 at 23:00 Amlodipine Besylate (Norvasc) 5 mg DAILY PO Last administered on 04/29/17 09: 19; Admin Dose 5 MG; Start 04/25/17 at 09:00 Atorvastatin Calcium (Lipitor) 80 mg QHS PO Last administered on 04/28/17 20: 56; Admin Dose 80 MG; Start 04/25/17 at 21:00 Ergocalciferol (Drisdol) 50,000 unit Mo@09 PO Last administered on 04/25/17 21:57; Admin Dose 50,000 UNIT; Start 04/24/17 at 23:00 Ferrous Sulfate (Ferrous Sulfate (Ec)) 325 mg DAILY PO Last administered on 09:06; Admin Dose 325 MG; Start 04/25/17 at 09:00 Insulin Glargine (Lantus) 52 unit QHS SC Last administered on 04/28/17 21:00; Admin Dose 52 UNIT; Start 04/25/17 at 21:00 Multivit/Ca Carb/ B Cmplx/FA/Prenat (Isabel-Brenda) 1 tab DAILY PO Last administered on 04/28/17 09:07; Admin Dose 1 TAB; Start 04/25/17 at 09:00 Pantoprazole (Protonix Tab) 40 mg DAILY@06 PO Last administered on 04/29/17 06 :02; Admin Dose 40 MG; Start 04/25/17 at 06:00 Guaifenesin/ Dextromethorphan (Mucinex Dm) 1 tab BID PO Last administered on 20:56; Admin Dose 1 TAB; Start 04/25/17 at 03:15 Hydralazine HCl (Apresoline) 10 mg Q4H PRN IV ELEVATED BLOOD PRESSURE Last administered on 04/28/17 07:04; Admin Dose 10 MG; Start 04/25/17 at 03:30 Diagnostic Test (Pha) (Accu-Chek) 1 ea 02 XX Last administered on 04/29/17 01: 59; Admin Dose 1 EA; Start 04/26/17 at 02:00 Citric Acid/ Sodium Citrate (Bicitra) 30 ml TID PO Last administered on 20:55; Admin Dose 30 ML; Start 04/25/17 at 13:00 Aspirin (Aspirin) 81 mg DAILY PO Last administered on 04/29/17 09:18; Admin Dose 81 MG; Start 04/25/17 at 12:00 Heparin Sodium (Porcine) (Heparin (5000 Units/0.5 ml)) 5,000 unit BID SC Last administered on 04/28/17 20:58; Admin Dose 5,000 UNIT; Start 04/26/17 at 09:00 Miscellaneous Information 1 ea NOTE XX ; Start 04/25/17 at 12:00 Glucose (Glutose) 15 gm Q15M PRN PO DECREASED GLUCOSE; Start 04/25/17 at 12:00 Glucose (Glutose) 22.5 gm Q15M PRN PO DECREASED GLUCOSE; Start 04/25/17 at 12: 00 Dextrose (D50w Syringe) 25 ml Q15M PRN IV DECREASED GLUCOSE; Start 04/25/17 at 12:00 Dextrose (D50w Syringe) 50 ml Q15M PRN IV DECREASED GLUCOSE; Start 04/25/17 at 12:00 Glucagon (Glucagen) 1 mg Q15M PRN IM DECREASED GLUCOSE; Start 04/25/17 at 12: 00 Glucose (Glutose) 15 gm Q15M PRN BUCCAL DECREASED GLUCOSE; Start 04/25/17 at 12:00 Furosemide (Lasix) 20 mg BID IV Last administered on 04/29/17 09:19; Admin Dose 20 MG; Start 04/26/17 at 09:00 Fish Oil (Fish Oil) 2,000 mg BID PO Last administered on 04/28/17 20:56; Admin Dose 2,000 MG; Start 04/27/17 at 21:00 EZETIMIBE (Zetia) 10 mg DAILY PO Last administered on 04/28/17 09:07; Admin Dose 10 MG; Start 04/28/17 at 09:00 Metoprolol Succinate (Toprol Xl) 25 mg DAILY PO Last administered on 04/29/17 09:19; Admin Dose 25 MG; Start 04/27/17 at 11:00 Morphine Sulfate (morphine) 2 mg Q4H PRN IV Pain Last administered on 22:51; Admin Dose 2 MG; Start 04/28/17 at 09:00 Linagliptin 5 mg 5 mg DAILY PO Last administered on 04/28/17 12:40; Admin Dose 5 MG; Start 04/28/17 at 12:00 Cefepime HCl/ Dextrose (Maxipime/D5W) 50 ml @ 100 mls/hr Q24H IVPB ; Start 04/29/17 at 13:00 Dell De La Torre DO Apr 29, 2017 12:25
[2017-04-29] MEDS ORDERED: LIDOCAINE 1% (MPF) 30 ML INJ ONE ×2 (12:35→14:00)
[2017-04-29] MEDS ORDERED: HEPARIN 1000 UNITS/ML 10 ML INJ ONE ×3 (12:35→14:04)
--- NOTE | 2017-04-29 13:28 | RADRPT ---
Vent Rate: 92 bpm RR Interval: 0 msec [place] Interval: 198 msec QRS Duration: 126 msec QT Interval: 430 msec QTC Interval: 531 msec P-R-T [place]: 55 - 0 - 68 degrees Sinus rhythm with marked sinus arrhythmia with premature ventricular complexes or fusion complexes Right bundle branch block Possible Lateral infarct , age undetermined Abnormal ECG Electronically Signed By: Dell De La Torre [id number]
--- NOTE | 2017-04-29 14:24 | OPR ---
Date/Time of Note Date/Time of Note DATE: 04/29/17 TIME: 14:18 Operative Report Procedure Date: Apr 29, 2017 Preoperative Diagnosis RENAL FAILURE Postoperative Diagnosis SAME Operation/Procedure Performed RIGHT JAMIL CATHETER PLACEMENT Surgeon see signature line Fram[place] NONE Anesthesia Type: other (LOCAL) Estimated Blood Loss: minimal Transfusion none Specimen NONE Grafts/Implants none Complications none Pt Condition Post Procedure: stable Procedure Description DATE OF OPERATION: 04/29/2017 SURGEON: Rod Pereyra MD PREOPERATIVE DIAGNOSIS: ESRD POSTOPERATIVE DIAGNOSIS: same ANESTHESIA: Local BLOOD LOSS: minimal COMPLICATIONS: None. ACCESS: Right common femoral vein INDICATIONS: This is a 66 year-old male with worsening renal failure requiring dialysis. Patient and family have been informed of need for dialysis however they wanted to attemot for permanent catheter and given the patient was having shortness of breath and unable to fully tolerate not being able to be flat that we have to place a jamil catheter if unable to tolerate. They were informed of the alternatives, risks, and benefits. Risks including but not limited to bleeding, thrombosis, embolization, myocardial infarction, , device malfunction, infection, pneumothorax, nephrotoxicity and patient has agreed to proceed. PROCEDURE: 1. Ultrasound guided access of right common femoral vein 2. Ultrasound guided access of right Internal jugular vein 3. Right common femoral vein non-tunneled hemodialysis catheter placement DESCRIPTION: The patient was in supine position in operating room table. Bed was placed in slight Trendelenburg position and the right neck and chest was prepped and draped with sterile technique. The central catheter was flushed with heparin to ensure function of each port. Landmarks were identified and the skin entry site was chosen using ultrasound guidance. The skin And subcutaneous tissue were anesthetized with 1% lidocaine. The vein was then located with a needle with a 10 mL syringe using ultrasound guidance. The needle was then directed towards the vein and was entered. However, at this point the patient was not able to tolerate the right neck access as he was not able to be comfortable and lay flat, therefore, decision was made to abort this attempt and place a Jamil catheter in the right common femoral vein. Subsequently, the right groin was prepped and draped with sterile technique. Landmarks were identified and the skin entry site was chosen using ultrasound guidance. The skin And subcutaneous tissue were anesthetized with 1% lidocaine. The vein was then located with a needle with a 10 mL syringe using ultrasound guidance. The needle was then directed towards the vein and was entered. The needle position was secured and syringe was removed. The hub was occluded to prevent venous air embolus. The guidewire was passed easily and the needle was removed while the wire was held in place. A small incision was then made at the point of the wire entry. The dilator was placed over the wire and the tract gently dilated. The catheter was fed over the wire, ensuring the wire exited from the port before advancing the catheter. The catheter was inserted to the desired depth and the wire removed. Each port was aspirated to ensure adequate blood flow and then flushed with heparinized saline solution. The catheter was secured in place with a 2-0 nylon suture and a sterile dressing was applied. The patient tolerated the procedure well and was in stable condition. All instrument, sponge and needle counts were correct 2. ROD PEREYRA MD Apr 29, 2017 14:24
--- NOTE | 2017-04-29 15:02 | CONS ---
Date/Time of Note Date/Time of Note DATE: 04/29/17 TIME: 14:59 Assessment/Plan Assessment/Plan Chief Complaint/Hosp Course SUBJECTIVE: No events overnight. The patient is alert, coughing. No fevers overnight. Daughter at bedside. MICROBIOLOGY: Blood culture grew coag-negative Staph species. Urine culture grew Strep, less than 10,000 colonies. Repeat blood cultures negative. PHYSICAL EXAMINATION: GENERAL: Fragile, chronically ill-appearing, elderly man who is in no distress. HEENT: Head atraumatic, normocephalic. Sclerae anicteric. Buccal mucosa dry. NECK: Supple, trachea midline. CHEST: Rise symmetrical. Breath sounds with bilateral scattered crackles. HEART: S1, S2. ABDOMEN: Soft, bowel tones present. EXTREMITIES: Without cyanosis. ASSESSMENT: 1. Systemic inflammatory response syndrome. 2. Acute on chronic kidney disease. 3. Coag-negative Staphylococcus bacteremia consistent with contaminant. 4. Mild urinary tract infection. 5. Diabetes. 6. Coronary artery disease. 7. Hypertension. 8. Fluid overload, poss underlying PNA PLAN: More short of breath with ongoing cough and worsening leukocytosis, will start Cefepime, await for PermCath placement, f/u labs/cxr DW pt/daughter at bedside Problems: Consultation Date/Type/Reason Admit Date/Time Apr 24, 2017 at 19:05 Initial Consult Date 04/27/17 Type of Consultation: ID Referring Provider: NANY PRIEST [employer] Exam/Review of Systems Vital Signs Vitals Vital Signs Date Time Temp Pulse Resp B/P Pulse Ox O2 Delivery O2 Flow Rate FiO2 04/29/17 14:54 82 14 151/75 97 Nasal Cannula 2.0 04/29/17 14:26 98.3 04/27/17 17:23 21 Intake and Output 04/28/17 04/28/17 04/29/17 15:00 23:00 07:00 Intake Total 720 ml 300 ml Output Total 600 ml 500 ml Balance 120 ml -200 ml Results Result Diagram: 04/29/17 0515 04/29/17 0515 Results 24 hrs Laboratory Tests Test 04/28/17 17:56 04/28/17 20:34 04/29/17 00:52 04/29/17 05:15 Bedside Glucose 243 H 227 H 258 H White Blood Count 16.2 H Red Blood Count 2.38 L Hemoglobin 7.1 L Hematocrit 21.3 L Mean Corpuscular Volume 89.5 Mean Corpuscular Hemoglobin 28.2 L Mean Corpuscular Hemoglobin Concent 31.5 L Red Cell Distribution Width 16.5 H Platelet Count 318 # Mean Platelet Volume 12.3 H Neutrophils % 64.9 Lymphocytes % 18.9 Monocytes % 9.7 Eosinophils % 2.1 Basophils % 0.3 Nucleated Red Blood Cells % 0.4 H Neutrophils # 10.5 H Lymphocytes # 3.1 H Monocytes # 1.6 H Eosinophils # 0.3 Basophils # 0.1 Nucleated Red Blood Cells # 0.1 H Sodium Level 136 Potassium Level 4.3 Chloride Level 95 L Carbon Dioxide Level 30 Anion Gap 15 Blood Urea Nitrogen 117 H Creatinine 5.02 H Glucose Level 284 #H Calcium Level 8.8 Phosphorus Level 4.4 Magnesium Level 1.9 Test 04/29/17 08:24 04/29/17 12:22 Bedside Glucose 316 H 241 H Medications Medications Current Medications Ondansetron HCl (Zofran Tab) 4 mg Q6H PRN PO NAUSEA AND/OR VOMITING; Start at 23:00 Nitroglycerin (Nitroglycerin (Sl Tab) 0.4 Mg) 1 tab Q5M PRN SL CHEST PAIN; Start 04/24/17 at 23:00 Docusate Sodium (Colace) 100 mg Q12H PRN PO CONSTIPATION; Start 04/24/17 at 23 :00 Bisacodyl (Dulcolax) 5 mg DAILY PRN PO CONSTIPATION; Start 04/24/17 at 23:00 Amlodipine Besylate (Norvasc) 5 mg DAILY PO Last administered on 04/29/17 09: 19; Admin Dose 5 MG; Start 04/25/17 at 09:00 Atorvastatin Calcium (Lipitor) 80 mg QHS PO Last administered on 04/28/17 20: 56; Admin Dose 80 MG; Start 04/25/17 at 21:00 Ergocalciferol (Drisdol) 50,000 unit Mo@09 PO Last administered on 04/25/17 21:57; Admin Dose 50,000 UNIT; Start 04/24/17 at 23:00 Ferrous Sulfate (Ferrous Sulfate (Ec)) 325 mg DAILY PO Last administered on 09:06; Admin Dose 325 MG; Start 04/25/17 at 09:00 Insulin Glargine (Lantus) 52 unit QHS SC Last administered on 04/28/17 21:00; Admin Dose 52 UNIT; Start 04/25/17 at 21:00 Multivit/Ca Carb/ B Cmplx/FA/Prenat (Isabel-Brenda) 1 tab DAILY PO Last administered on 04/28/17 09:07; Admin Dose 1 TAB; Start 04/25/17 at 09:00 Pantoprazole (Protonix Tab) 40 mg DAILY@06 PO Last administered on 04/29/17 06 :02; Admin Dose 40 MG; Start 04/25/17 at 06:00 Guaifenesin/ Dextromethorphan (Mucinex Dm) 1 tab BID PO Last administered on 20:56; Admin Dose 1 TAB; Start 04/25/17 at 03:15 Hydralazine HCl (Apresoline) 10 mg Q4H PRN IV ELEVATED BLOOD PRESSURE Last administered on 04/28/17 07:04; Admin Dose 10 MG; Start 04/25/17 at 03:30 Diagnostic Test (Pha) (Accu-Chek) 1 ea 02 XX Last administered on 04/29/17 01: 59; Admin Dose 1 EA; Start 04/26/17 at 02:00 Citric Acid/ Sodium Citrate (Bicitra) 30 ml TID PO Last administered on 20:55; Admin Dose 30 ML; Start 04/25/17 at 13:00 Aspirin (Aspirin) 81 mg DAILY PO Last administered on 04/29/17 09:18; Admin Dose 81 MG; Start 04/25/17 at 12:00 Heparin Sodium (Porcine) (Heparin (5000 Units/0.5 ml)) 5,000 unit BID SC Last administered on 04/28/17 20:58; Admin Dose 5,000 UNIT; Start 04/26/17 at 09:00 Miscellaneous Information 1 ea NOTE XX ; Start 04/25/17 at 12:00 Glucose (Glutose) 15 gm Q15M PRN PO DECREASED GLUCOSE; Start 04/25/17 at 12:00 Glucose (Glutose) 22.5 gm Q15M PRN PO DECREASED GLUCOSE; Start 04/25/17 at 12: 00 Dextrose (D50w Syringe) 25 ml Q15M PRN IV DECREASED GLUCOSE; Start 04/25/17 at 12:00 Dextrose (D50w Syringe) 50 ml Q15M PRN IV DECREASED GLUCOSE; Start 04/25/17 at 12:00 Glucagon (Glucagen) 1 mg Q15M PRN IM DECREASED GLUCOSE; Start 04/25/17 at 12: 00 Glucose (Glutose) 15 gm Q15M PRN BUCCAL DECREASED GLUCOSE; Start 04/25/17 at 12:00 Furosemide (Lasix) 20 mg BID IV Last administered on 04/29/17 09:19; Admin Dose 20 MG; Start 04/26/17 at 09:00 Fish Oil (Fish Oil) 2,000 mg BID PO Last administered on 04/28/17 20:56; Admin Dose 2,000 MG; Start 04/27/17 at 21:00 EZETIMIBE (Zetia) 10 mg DAILY PO Last administered on 04/28/17 09:07; Admin Dose 10 MG; Start 04/28/17 at 09:00 Metoprolol Succinate (Toprol Xl) 25 mg DAILY PO Last administered on 04/29/17 09:19; Admin Dose 25 MG; Start 04/27/17 at 11:00 Morphine Sulfate (morphine) 2 mg Q4H PRN IV Pain Last administered on 22:51; Admin Dose 2 MG; Start 04/28/17 at 09:00 Linagliptin 5 mg 5 mg DAILY PO Last administered on 04/28/17 12:40; Admin Dose 5 MG; Start 04/28/17 at 12:00 Cefepime HCl/ Dextrose (Maxipime/D5W) 50 ml @ 100 mls/hr Q24H IVPB ; Start 04/29/17 at 13:00 MARIELA BANGURA NP Apr 29, 2017 15:02
[2017-04-29] MEDS ORDERED: HEPARIN 1000 UNITS/ML 10 ML INJ CATHETER SCH (15:30)
--- NOTE | 2017-04-29 15:30 | RADRPT ---
PROCEDURE: XR Chest. CLINICAL INDICATION: Postoperative . TECHNIQUE: Single frontal chest x-ray. COMPARISON: CHEST 04/28/2017 FINDINGS: Bibasilar atelectasis or infiltrates appear improved. . Remainder of the lungs are clear. Calcific a therosclerosis of the aorta is present.. The cardiomediastinal silhouette is unremarkable. The osse ous structures are intact. IMPRESSION: Improved bibasilar atelectasis or infiltrates.. RPTAT: GG .Dennis Gee MD, Date Time Electronically viewed and signed by .Dennis Gee MD, on 04/29/2017 15:30 .L/
--- NOTE | 2017-04-29 16:02 | RADRPT ---
PROCEDURE: Fluoroscopic spot views of the lower abdomen and pelvis for surgical guidance CLINICAL INDICATION: Hemodialysis catheter placement TECHNIQUE: 2 fluoroscopic spot views of the lower abdomen and pelvis. Images were submitted to the radiology department for interpretation. COMPARISON: None FINDINGS: The right foraminal central venous catheter is seen with the tip at the L4 level. The images were re viewed by the attending physician at the time of the procedure. Fluoroscopy time was 8.3 seconds. IMPRESSION: Intraoperative images were obtained of the lower abdomen and pelvis for surgical guidance. Please re phoebe to the surgeon's operative notes for further details. RPTAT: HPNM Physician Beatrice Date Time Electronically viewed and signed by Physician Beatrice on 04/29/2017 16:02 /
[2017-04-29 16:34] LABS: HEMATOCRIT 18.6 % (42.0-52.0)
[2017-04-29] MEDS: CEFEPIME HCL IVPB SCH (17:22)
[2017-04-29] MEDS: DEXTROSE 5% IVPB SCH (17:22)
--- NOTE | 2017-04-29 17:28 | HPN ---
Date/Time of Note Date/Time of Note DATE: 04/29/17 TIME: 17:28 Interval H&P Admission Note Pt. seen H&P reviewed: No system changes VANIA PEREYRA MD Apr 29, 2017 17:28
--- NOTE | 2017-04-29 17:29 | SIPON ---
Date/Time of Note Date/Time of Note DATE: 04/29/17 TIME: 17:28 Operative Report Preoperative Diagnosis RENAL FAILURE Postoperative Diagnosis SAME Operation/Procedure Performed RIGHT CFV JAMIL CATHETER PLACEMENT Surgeon see signature line pharmacy sales assistant NONE Anesthesia: other (LOCAL) Estimated blood loss: minimal Transfusion Required none Specimen NONE Grafts/Implants none Complications none VANIA PEREYRA MD Apr 29, 2017 17:29
--- NOTE | 2017-04-29 17:58 | CONS ---
Date/Time of Note Date/Time of Note DATE: 04/29/17 TIME: 17:53 Assessment/Plan Assessment/Plan Chief Complaint/Hosp Course Pleasant Litzy gentleman with his family present in the room reporting a 30 year history of diabetes mellitus type 2. He had been on oral agent therapy but as his kidneys declined he was transitioned over to a multiple daily injection regimen using Lantus and NovoLog. He intermittently takes full dose Januvia 100 mg despite his renal dysfunction Problems: (1) Diabetes mellitus type 2 in obese Status: Chronic Comment: Patient's blood sugar control is drifted up while he was getting prep for his surgical procedure. He is now stable postop. I will adjust the insulin regimen and continue him on the DPP 4 inhibitor drug Tradjenta as is therapeutic. Please note if his insurance will not cover this then would be renal dose adjusted Januvia 25 mg once a day. (2) End stage renal disease on dialysis due to type 2 diabetes mellitus Status: Chronic Comment: He now has his dialysis catheter in. Due to severe anemia I am unclear whether or not he will be transfused during dialysis or separately from dialysis. I will defer this off to the renewals representative but would be interested in getting this pursued in the near future (3) Normocytic anemia Status: Acute Comment: This is not an iron deficiency anemia I am not sure that oral iron is going to be helpful here. He should be transfused and receive also Epogen (4) Hyperlipidemia associated with type 2 diabetes mellitus Status: Chronic Comment: Continue statin therapy (5) Essential hypertension Status: Chronic Comment: Adequate control (6) Diastolic dysfunction Status: Chronic Comment: On low-dose beta-blockade effectively. (7) Coronary artery disease Status: Chronic Comment: Quiescent on low-dose beta-blockade despite the anemia Qualifiers: Coronary Disease-Associated Artery/Lesion type: [place] artery [place] vs. transplanted heart: [place] heart Associated angina: without angina Qualified Code: I25.10 - Coronary artery disease involving [place] coronary artery of [place] heart without angina pectoris Consultation Date/Type/Reason Admit Date/Time Apr 24, 2017 at 19:05 Initial Consult Date 04/27/17 Type of Consultation: Endocrinology Reason for Consultation Diabetes mellitus type 2 with complications of end-stage renal disease; retinopathy; peripheral neuropathy; Referring Provider: NANY PRIEST NP 24 HR Interval Summary Constitutional: no complaints Detailed Summary Respiratory: no complaints Cardiovascular: no complaints Gastrointestinal: no complaints Genitourinary: no complaints Exam/Review of Systems Vital Signs Vitals Vital Signs Date Time Temp Pulse Resp B/P Pulse Ox O2 Delivery O2 Flow Rate FiO2 04/29/17 17:30 66 15 04/29/17 16:36 Nasal Cannula 2.0 04/29/17 15:54 98.0 119/59 98 04/27/17 17:23 21 Intake and Output 04/28/17 04/28/17 04/29/17 15:00 23:00 07:00 Intake Total 720 ml 300 ml Output Total 600 ml 500 ml Balance 120 ml -200 ml Exam Somewhat pale appearing Constitutional: alert, oriented Respiratory: clear to auscultation, normal air movement Cardiovascular: nl pulses, regular rate and rhythm Results Result Diagram: 04/29/17 1603 04/29/17 0515 Results 24 hrs Laboratory Tests Test 04/28/17 17:56 04/28/17 20:34 04/29/17 00:52 04/29/17 05:15 Bedside Glucose 243 H 227 H 258 H White Blood Count 16.2 H Red Blood Count 2.38 L Hemoglobin 7.1 L Hematocrit 21.3 L Mean Corpuscular Volume 89.5 Mean Corpuscular Hemoglobin 28.2 L Mean Corpuscular Hemoglobin Concent 31.5 L Red Cell Distribution Width 16.5 H Platelet Count 318 # Mean Platelet Volume 12.3 H Neutrophils % 64.9 Lymphocytes % 18.9 Monocytes % 9.7 Eosinophils % 2.1 Basophils % 0.3 Nucleated Red Blood Cells % 0.4 H Neutrophils # 10.5 H Lymphocytes # 3.1 H Monocytes # 1.6 H Eosinophils # 0.3 Basophils # 0.1 Nucleated Red Blood Cells # 0.1 H Sodium Level 136 Potassium Level 4.3 Chloride Level 95 L Carbon Dioxide Level 30 Anion Gap 15 Blood Urea Nitrogen 117 H Creatinine 5.02 H Glucose Level 284 #H Calcium Level 8.8 Phosphorus Level 4.4 Magnesium Level 1.9 Test 04/29/17 08:24 04/29/17 12:22 04/29/17 16:03 04/29/17 17:25 Bedside Glucose 316 H 241 H 234 H Hemoglobin 7.0 L Hematocrit 18.6 L Medications Medications Current Medications Ondansetron HCl (Zofran Tab) 4 mg Q6H PRN PO NAUSEA AND/OR VOMITING; Start at 23:00 Nitroglycerin (Nitroglycerin (Sl Tab) 0.4 Mg) 1 tab Q5M PRN SL CHEST PAIN; Start 04/24/17 at 23:00 Docusate Sodium (Colace) 100 mg Q12H PRN PO CONSTIPATION; Start 04/24/17 at 23 :00 Bisacodyl (Dulcolax) 5 mg DAILY PRN PO CONSTIPATION; Start 04/24/17 at 23:00 Amlodipine Besylate (Norvasc) 5 mg DAILY PO Last administered on 04/29/17 09: 19; Admin Dose 5 MG; Start 04/25/17 at 09:00 Atorvastatin Calcium (Lipitor) 80 mg QHS PO Last administered on 04/28/17 20: 56; Admin Dose 80 MG; Start 04/25/17 at 21:00 Ergocalciferol (Drisdol) 50,000 unit Mo@09 PO Last administered on 04/29/17 17 :21; Admin Dose 50,000 UNIT; Start 04/24/17 at 23:00 Ferrous Sulfate (Ferrous Sulfate (Ec)) 325 mg DAILY PO Last administered on 09:06; Admin Dose 325 MG; Start 04/25/17 at 09:00 Multivit/Ca Carb/ B Cmplx/FA/Prenat (Isabel-Brenda) 1 tab DAILY PO Last administered on 04/28/17 09:07; Admin Dose 1 TAB; Start 04/25/17 at 09:00 Pantoprazole (Protonix Tab) 40 mg DAILY@06 PO Last administered on 04/29/17 06 :02; Admin Dose 40 MG; Start 04/25/17 at 06:00 Guaifenesin/ Dextromethorphan (Mucinex Dm) 1 tab BID PO Last administered on 20:56; Admin Dose 1 TAB; Start 04/25/17 at 03:15 Hydralazine HCl (Apresoline) 10 mg Q4H PRN IV ELEVATED BLOOD PRESSURE Last administered on 04/28/17 07:04; Admin Dose 10 MG; Start 04/25/17 at 03:30 Diagnostic Test (Pha) (Accu-Chek) 1 ea 02 XX Last administered on 04/29/17 01: 59; Admin Dose 1 EA; Start 04/26/17 at 02:00 Citric Acid/ Sodium Citrate (Bicitra) 30 ml TID PO Last administered on 20:55; Admin Dose 30 ML; Start 04/25/17 at 13:00 Aspirin (Aspirin) 81 mg DAILY PO Last administered on 04/29/17 09:18; Admin Dose 81 MG; Start 04/25/17 at 12:00 Heparin Sodium (Porcine) (Heparin (5000 Units/0.5 ml)) 5,000 unit BID SC Last administered on 04/28/17 20:58; Admin Dose 5,000 UNIT; Start 04/26/17 at 09:00 Miscellaneous Information 1 ea NOTE XX ; Start 04/25/17 at 12:00 Glucose (Glutose) 15 gm Q15M PRN PO DECREASED GLUCOSE; Start 04/25/17 at 12:00 Glucose (Glutose) 22.5 gm Q15M PRN PO DECREASED GLUCOSE; Start 04/25/17 at 12: 00 Dextrose (D50w Syringe) 25 ml Q15M PRN IV DECREASED GLUCOSE; Start 04/25/17 at 12:00 Dextrose (D50w Syringe) 50 ml Q15M PRN IV DECREASED GLUCOSE; Start 04/25/17 at 12:00 Glucagon (Glucagen) 1 mg Q15M PRN IM DECREASED GLUCOSE; Start 04/25/17 at 12: 00 Glucose (Glutose) 15 gm Q15M PRN BUCCAL DECREASED GLUCOSE; Start 04/25/17 at 12:00 Furosemide (Lasix) 20 mg BID IV Last administered on 04/29/17 09:19; Admin Dose 20 MG; Start 04/26/17 at 09:00 Fish Oil (Fish Oil) 2,000 mg BID PO Last administered on 04/28/17 20:56; Admin Dose 2,000 MG; Start 04/27/17 at 21:00 EZETIMIBE (Zetia) 10 mg DAILY PO Last administered on 04/28/17 09:07; Admin Dose 10 MG; Start 04/28/17 at 09:00 Metoprolol Succinate (Toprol Xl) 25 mg DAILY PO Last administered on 04/29/17 09:19; Admin Dose 25 MG; Start 04/27/17 at 11:00 Morphine Sulfate (morphine) 2 mg Q4H PRN IV Pain Last administered on 22:51; Admin Dose 2 MG; Start 04/28/17 at 09:00 Linagliptin 5 mg 5 mg DAILY PO Last administered on 04/28/17 12:40; Admin Dose 5 MG; Start 04/28/17 at 12:00 Cefepime HCl/ Dextrose (Maxipime/D5W) 50 ml @ 100 mls/hr Q24H IVPB Last administered on 04/29/17 17:22; Admin Dose 100 MLS/HR; Start 04/29/17 at 13:00 Insulin Glargine (Lantus) 60 unit QHS SC ; Start 04/29/17 at 21:00; Status MARA GARCÍA MD Apr 29, 2017 17:58
--- NOTE | 2017-04-29 18:42 | CONS ---
DATE OF ADMISSION: 04/24/2017 DATE OF CONSULTATION: 04/28/2017 VASCULAR SURGERY CONSULTATION This is a late entry as the patient was seen on 04/28/2017. Dear Doctors: Mr. Arora is a 66-year-old gentleman with a history of chronic kidney disease who seemed to have progressed to renal failure, was admitted for evaluation of shortness of breath, congestion and meta bolic acidosis and hyperkalemia. Over the past few days, the patient has been attempted to be stabi lized from a medical standpoint; however, the patient's renal function has not improved and has prog ressed to worsening in which he requires hemodialysis. Vascular surgery consultation was obtained f or further evaluation and for dialysis catheter placement. PAST MEDICAL HISTORY: Entails hypertension, diabetes, hyperlipidemia, chronic kidney disease stage III to IV, diabetic neuropathy, bilateral lower extremity atherosclerosis, coronary artery disease, history of DVT, gout and GERD. PAST SURGICAL HISTORY: CABG, coronary angiogram, gastric surgery. FAMILY HISTORY: Positive for hypertension. SOCIAL HISTORY: Previous smoker. Denies current tobacco, alcohol or illicit drug use. PHYSICAL EXAMINATION: GENERAL: He is alert and oriented x3; however, he is not able to answer difficult questions. Seems to be a little bit tired and having difficulty with his breathing; however, he has improved since h is admission per his family's reporting. HEENT: Normocephalic, atraumatic. EOMI. Mucosa moist. NECK: Supple. No carotid bruit. PULMONARY: Bilateral crackles at the bases. CARDIOVASCULAR: S1, S2 present. ABDOMEN: Soft, nontender, nondistended. Bowel sounds positive. Truncal obesity. EXTREMITIES: Lower extremities: Right lower extremity palpable femoral pulse, nonpalpable pedal pu lse. Motor and sensory intact. Capillary refill 3 seconds. Left lower extremity: Palpable femora l pulse, nonpalpable pedal pulse. Motor and sensory intact. Capillary refill 3 seconds. ASSESSMENT AND PLAN: 1. Acute on chronic kidney disease: It seems the patient's renal failure has progressed to possibl y end-stage renal, in which the patient requires permanent hemodialysis. As our nephrology colleagu es are evaluating the patient at the moment, the patient will require hemodialysis and will require catheter placement. I have discussed the findings with the patient's family for now as we will plan to place a permanent hemodialysis catheter should the patient tolerate. There is a chance that the patient may not be able to tolerate this procedure as he has difficulty still lying flat for now. The family is persistent to having one procedure done, hoping that a PermCath will be adequate for h im for now. Will plan to obtain bilateral upper extremity vein mapping in order to identify possible access opti ons for him in the coming future. Will continue with our medical team and have the patient be evaluated by our cardiology colleagues f or possible fistula creation. Optimize vascular status (BP meds, diet, nutrition, exercise, sugar control, antiplatelets). 2. Bilateral lower extremity atherosclerosis: The patient has no significant ulcerations or gangre ne for now. Will plan to follow with the patient's vascular surveillance as an outpatient. Discussed findings, plan and management with the patient and the family at the bedside and they unde rstand. Thank you for allowing us to partake in the care of your patient. Please call with any questions. Dictated By: VANIA SANTIAGO/FREDY Conf#: [id number] DID#: [id number] CC: MARVIN ROTH MD;*EndCC*
[2017-04-29] MEDS ORDERED: INSULIN GLARGINE [LANtus] 3 ML PEN SC SCH (21:00)
[2017-04-29] MEDS: ATORVASTATIN 80 MG TAB PO SCH (21:06)
--- NOTE | 2017-04-29 22:00 | CONS ---
Date/Time of Note Date/Time of Note DATE: 04/29/17 TIME: 21:54 Assessment/Plan Assessment/Plan Additional Assessment/Plan 1. 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 H/o CKD due to diabetic nehropathy as per pt was stage IV/V with eGFR 15 as outpatient 3. Acute hyperkalemia due to TROY on CKD - resolved after pt gets started on HD 4. Metabolic acidosis due to worsenign renal failure 5. H/ CAD S/p previous coronary angiogram as per patient 6. Hypertension 7. Type II DM 8. Hyperlipidemia 9. Acute NSETMI due to CHF Plan : hepatitis C antibody positive, Hepatitis A antibody positive pt could not lie flat, BP stable, S/p right femoral randy HD catheter -s/p HD x 2 hr today 1 L removed-will order HD x 3 hr for tomorrow Renal US showed small size kidneys, no hydronephrosis, c/w CKD Hb 7.0 today, will plan for HD tomorrow during HD - will try to keep Hb higher due to CHF, NSTEMi also start epogen for anemia will follow up Consultation Date/Type/Reason Admit Date/Time Apr 24, 2017 at 19:05 Initial Consult Date 04/25/17 Type of Consultation: NEPHROLOGY Referring Provider: NANY PRIEST NP 24 HR Interval Summary Free Text/Dictation pt could not lie flat, BP stable, S/p right femoral randy HD catheter -s/p HD x 2 hr today 2 L removed Exam/Review of Systems Vital Signs Vitals Vital Signs Date Time Temp Pulse Resp B/P Pulse Ox O2 Delivery O2 Flow Rate FiO2 04/29/17 20:19 94 2.0 04/29/17 20:19 84 18 Nasal Cannula 04/29/17 20:00 98.3 132/57 04/27/17 17:23 21 Intake and Output 04/28/17 04/28/17 04/29/17 15:00 23:00 07:00 Intake Total 720 ml 300 ml Output Total 600 ml 500 ml Balance 120 ml -200 ml Results Result Diagram: 04/29/17 1603 04/29/17 0515 Results 24 hrs Laboratory Tests Test 04/29/17 00:52 04/29/17 05:15 04/29/17 08:24 04/29/17 12:22 Bedside Glucose 258 H 316 H 241 H White Blood Count 16.2 H Red Blood Count 2.38 L Hemoglobin 7.1 L Hematocrit 21.3 L Mean Corpuscular Volume 89.5 Mean Corpuscular Hemoglobin 28.2 L Mean Corpuscular Hemoglobin Concent 31.5 L Red Cell Distribution Width 16.5 H Platelet Count 318 # Mean Platelet Volume 12.3 H Neutrophils % 64.9 Lymphocytes % 18.9 Monocytes % 9.7 Eosinophils % 2.1 Basophils % 0.3 Nucleated Red Blood Cells % 0.4 H Neutrophils # 10.5 H Lymphocytes # 3.1 H Monocytes # 1.6 H Eosinophils # 0.3 Basophils # 0.1 Nucleated Red Blood Cells # 0.1 H Sodium Level 136 Potassium Level 4.3 Chloride Level 95 L Carbon Dioxide Level 30 Anion Gap 15 Blood Urea Nitrogen 117 H Creatinine 5.02 H Glucose Level 284 #H Calcium Level 8.8 Phosphorus Level 4.4 Magnesium Level 1.9 Test 04/29/17 16:03 04/29/17 17:25 04/29/17 20:44 Hemoglobin 7.0 L Hematocrit 18.6 L Bedside Glucose 234 H 113 Medications Medications Current Medications Ondansetron HCl (Zofran Tab) 4 mg Q6H PRN PO NAUSEA AND/OR VOMITING; Start at 23:00 Nitroglycerin (Nitroglycerin (Sl Tab) 0.4 Mg) 1 tab Q5M PRN SL CHEST PAIN; Start 04/24/17 at 23:00 Docusate Sodium (Colace) 100 mg Q12H PRN PO CONSTIPATION; Start 04/24/17 at 23 :00 Bisacodyl (Dulcolax) 5 mg DAILY PRN PO CONSTIPATION; Start 04/24/17 at 23:00 Amlodipine Besylate (Norvasc) 5 mg DAILY PO Last administered on 04/29/17 09: 19; Admin Dose 5 MG; Start 04/25/17 at 09:00 Atorvastatin Calcium (Lipitor) 80 mg QHS PO Last administered on 04/29/17 21: 06; Admin Dose 80 MG; Start 04/25/17 at 21:00 Ergocalciferol (Drisdol) 50,000 unit Mo@09 PO Last administered on 04/29/17 17 :21; Admin Dose 50,000 UNIT; Start 04/24/17 at 23:00 Ferrous Sulfate (Ferrous Sulfate (Ec)) 325 mg DAILY PO Last administered on 09:06; Admin Dose 325 MG; Start 04/25/17 at 09:00 Multivit/Ca Carb/ B Cmplx/FA/Prenat (Isabel-Brenda) 1 tab DAILY PO Last administered on 04/28/17 09:07; Admin Dose 1 TAB; Start 04/25/17 at 09:00 Pantoprazole (Protonix Tab) 40 mg DAILY@06 PO Last administered on 04/29/17 06 :02; Admin Dose 40 MG; Start 04/25/17 at 06:00 Guaifenesin/ Dextromethorphan (Mucinex Dm) 1 tab BID PO Last administered on 21:07; Admin Dose 1 TAB; Start 04/25/17 at 03:15 Hydralazine HCl (Apresoline) 10 mg Q4H PRN IV ELEVATED BLOOD PRESSURE Last administered on 04/28/17 07:04; Admin Dose 10 MG; Start 04/25/17 at 03:30 Diagnostic Test (Pha) (Accu-Chek) 1 ea 02 XX Last administered on 04/29/17 01: 59; Admin Dose 1 EA; Start 04/26/17 at 02:00 Citric Acid/ Sodium Citrate (Bicitra) 30 ml TID PO Last administered on 21:06; Admin Dose 30 ML; Start 04/25/17 at 13:00 Aspirin (Aspirin) 81 mg DAILY PO Last administered on 04/29/17 09:18; Admin Dose 81 MG; Start 04/25/17 at 12:00 Heparin Sodium (Porcine) (Heparin (5000 Units/0.5 ml)) 5,000 unit BID SC Last administered on 04/29/17 21:09; Admin Dose 5,000 UNIT; Start 04/26/17 at 09:00 Miscellaneous Information 1 ea NOTE XX ; Start 04/25/17 at 12:00 Glucose (Glutose) 15 gm Q15M PRN PO DECREASED GLUCOSE; Start 04/25/17 at 12:00 Glucose (Glutose) 22.5 gm Q15M PRN PO DECREASED GLUCOSE; Start 04/25/17 at 12: 00 Dextrose (D50w Syringe) 25 ml Q15M PRN IV DECREASED GLUCOSE; Start 04/25/17 at 12:00 Dextrose (D50w Syringe) 50 ml Q15M PRN IV DECREASED GLUCOSE; Start 04/25/17 at 12:00 Glucagon (Glucagen) 1 mg Q15M PRN IM DECREASED GLUCOSE; Start 04/25/17 at 12: 00 Glucose (Glutose) 15 gm Q15M PRN BUCCAL DECREASED GLUCOSE; Start 04/25/17 at 12:00 Furosemide (Lasix) 20 mg BID IV Last administered on 04/29/17 21:06; Admin Dose 20 MG; Start 04/26/17 at 09:00 Fish Oil (Fish Oil) 2,000 mg BID PO Last administered on 04/29/17 21:13; Admin Dose 2,000 MG; Start 04/27/17 at 21:00 EZETIMIBE (Zetia) 10 mg DAILY PO Last administered on 04/28/17 09:07; Admin Dose 10 MG; Start 04/28/17 at 09:00 Metoprolol Succinate (Toprol Xl) 25 mg DAILY PO Last administered on 04/29/17 09:19; Admin Dose 25 MG; Start 04/27/17 at 11:00 Morphine Sulfate (morphine) 2 mg Q4H PRN IV Pain Last administered on 22:51; Admin Dose 2 MG; Start 04/28/17 at 09:00 Linagliptin 5 mg 5 mg DAILY PO Last administered on 04/28/17 12:40; Admin Dose 5 MG; Start 04/28/17 at 12:00 Cefepime HCl/ Dextrose (Maxipime/D5W) 50 ml @ 100 mls/hr Q24H IVPB Last administered on 04/29/17 17:22; Admin Dose 100 MLS/HR; Start 04/29/17 at 13:00 Insulin Glargine (Lantus) 60 unit QHS SC Last administered on 04/29/17 21:11; Admin Dose 60 UNIT; Start 04/29/17 at 21:00 ARQUEL MCDOWELL MD Apr 29, 2017 22:00
[2017-04-30] VITALS (23 sets, daily range): BP systolic 95–155; BP diastolic 45–81; PULSE 65–90; RESP 17–20
[2017-04-30] MEDS: ALBUTEROL/IPRATROPIUM (NEB) 3 ML AMP HHN SCH ×6 (01:54→20:56)
[2017-04-30] MEDS: ACCU-CHEK XX SCH (02:00)
[2017-04-30] MEDS: PANTOPRAZOLE (EC) 40 MG TAB PO SCH (06:00)
[2017-04-30 07:17] LABS: MAGNESIUM 1.8 mg/dl (1.7-2.5); PHOSPHORUS 4.3 mg/dl (2.5-4.9)
[2017-04-30 07:18] LABS: CALCIUM 8.9 mg/dl (8.4-10.2); CREATININE 4.5 mg/dl (0.61-1.24); POTASSIUM 5.6 mmol/L (3.5-5.1)
[2017-04-30] MEDS: INSULIN ASPART [NOVOLOG] 3 ML PEN SC SCH ×7 (08:53→21:00)
[2017-04-30 09:12] LABS: WHITE BLOOD COUNT 14.1 10^3/ul (4.8-10.8)
[2017-04-30 09:13] LABS: MEAN CORPUSCULAR HGB CONC 33.1 g/dl (32.0-37.0); MEAN CORPUSCULAR VOLUME 90.5 fl (82.0-101.0)
[2017-04-30 09:14] LABS: MEAN PLATELET VOLUME 12.7 fl (7.4-10.4); PLATELET COUNT 219 10^3/UL (140-440)
[2017-04-30 09:15] LABS: POSITIVE DIFF Y
[2017-04-30 09:48] LABS: ANISOCYTOSIS 2+ (0-0); EOSINOPHILS % (M) 3 % (0-7); GIANT THROMBO% (M) 2 % (0-0); METAMYELOCYTES %M 1 % (0-0); MICROCYTOSIS 1+ (0-0); MONOCYTES % (M) 6 % (0-11); PLATELET ESTIMATE NORMAL; POLYCHROMASIA 3+ (0-0)
[2017-04-30] MEDS: FISH OIL 1,000 MG CAP PO SCH ×2 (10:04→21:04)
[2017-04-30] MEDS: CITRIC ACID/SODIUM CITRATE 15 ML CUP PO SCH ×3 (10:04→21:00)
[2017-04-30] MEDS: FERROUS SULFATE (EC) 325 MG TAB PO SCH (10:04)
[2017-04-30] MEDS: METOPROLOL (XL) 25 MG TAB PO SCH (10:05)
[2017-04-30] MEDS: MULTIVIT/CA CARB/B CMPLX/FA TAB PO SCH (10:05)
[2017-04-30] MEDS: ASPIRIN 81 MG TAB PO SCH (10:05)
[2017-04-30] MEDS: AMLODIPINE 5 MG TAB PO SCH (10:05)
[2017-04-30] MEDS: EZETIMIBE 10 MG TAB PO SCH (10:05)
[2017-04-30] MEDS: FUROSEMIDE 20 MG INJ IV SCH ×2 (10:06→21:04)
[2017-04-30] MEDS: GUAIFENESIN/DM (SR) TAB PO SCH ×2 (10:06→21:05)
[2017-04-30] MEDS: LINAGLIPTIN 5 MG TABLET PO SCH (10:06)
[2017-04-30] MEDS: HEPARIN 5,000 UNIT/0.5 ML VIAL SC SCH ×2 (10:16→21:08)
--- NOTE | 2017-04-30 12:06 | CONS ---
Date/Time of Note Date/Time of Note DATE: 04/30/17 TIME: 12:04 Assessment/Plan Assessment/Plan Additional Assessment/Plan Volume overload Acute kidney injury with history of CKD, started on hemodialysis Acute decompensated diastolic congestive heart failure Diabetes CAD with history of PCI over 10 years ago Hypertension Dyslipidemia History of DVT, previously on anticoagulation Acute blood loss anemia -Patient has been started on hemodialysis. Breathing has improved as well as hemoglobin. Telemetry with episodes of Mobitz type I and denies symptoms of dizziness. Continue on telemetry monitoring. Anticoagulation on hold secondary to worsening anemia and requiring blood transfusion. If hemoglobin remains stable, continue aspirin therapy. Continue statin therapy. Consultation Date/Type/Reason Admit Date/Time Apr 24, 2017 at 19:05 Initial Consult Date 04/27/17 Type of Consultation: cv Referring Provider: NANY PRIEST NP 24 HR Interval Summary Free Text/Dictation Shortness of breath is slightly better today. Denies any dizziness, palpitations or chest discomfort Exam/Review of Systems Vital Signs Vitals Vital Signs Date Time Temp Pulse Resp B/P Pulse Ox O2 Delivery O2 Flow Rate FiO2 04/30/17 11:26 97.8 92 18 138/60 97 04/30/17 09:23 2.0 04/30/17 09:23 Nasal Cannula 04/27/17 17:23 21 Intake and Output 04/29/17 04/29/17 04/30/17 15:00 23:00 07:00 Intake Total 600 ml 200 ml Output Total 1900 ml 400 ml Balance -1300 ml -200 ml Exam Sleeping but arousable, following commands, able to give history, family bedside , no apparent distress Head: normocephalic Respiratory: other (Coarse breath sounds bilaterally, no wheezing) Cardiovascular: other (S1-S2 heard), regular rate and rhythm Gastrointestinal: bowel sounds, non-tender, soft Extremities: edema Results Result Diagram: 04/30/17 0816 04/30/17 0555 Results 24 hrs Laboratory Tests Test 04/29/17 12:22 04/29/17 16:03 04/29/17 17:25 04/29/17 20:44 Bedside Glucose 241 H 234 H 113 Hemoglobin 7.0 L Hematocrit 18.6 L Test 04/30/17 02:33 04/30/17 05:55 04/30/17 08:16 04/30/17 08:29 Bedside Glucose 264 H 360 H Sodium Level 137 Potassium Level 5.6 H Chloride Level 97 Carbon Dioxide Level 28 Anion Gap 18 H Blood Urea Nitrogen 98 H Creatinine 4.50 H Glucose Level 309 H Calcium Level 8.9 Phosphorus Level 4.3 Magnesium Level 1.8 White Blood Count 14.1 H Red Blood Count 1.90 #L Hemoglobin 10.7 #L Hematocrit 32.1 #L Mean Corpuscular Volume 90.5 Mean Corpuscular Hemoglobin 30.0 Mean Corpuscular Hemoglobin Concent 33.1 Red Cell Distribution Width 16.0 H Platelet Count 219 Mean Platelet Volume 12.7 H Segmented Neutrophils % (Manual) 78 H Lymphocytes % (Manual) 12 L Monocytes % (Manual) 6 Eosinophils % (Manual) 3 Metamyelocytes % (manual) 1 H Absolute Lymphocytes (Manual) 1.6 Absolute Monocytes (Manual) 0.8 Metamyelocytes # 0.1 H Platelet Estimate NORMAL Giant Platelets 2 H Polychromasia 3+ Anisocytosis 2+ Microcytosis 1+ Medications Medications Current Medications Ondansetron HCl (Zofran Tab) 4 mg Q6H PRN PO NAUSEA AND/OR VOMITING; Start at 23:00 Nitroglycerin (Nitroglycerin (Sl Tab) 0.4 Mg) 1 tab Q5M PRN SL CHEST PAIN; Start 04/24/17 at 23:00 Docusate Sodium (Colace) 100 mg Q12H PRN PO CONSTIPATION; Start 04/24/17 at 23 :00 Bisacodyl (Dulcolax) 5 mg DAILY PRN PO CONSTIPATION; Start 04/24/17 at 23:00 Amlodipine Besylate (Norvasc) 5 mg DAILY PO Last administered on 04/30/17 10: 05; Admin Dose 5 MG; Start 04/25/17 at 09:00 Atorvastatin Calcium (Lipitor) 80 mg QHS PO Last administered on 04/29/17 21: 06; Admin Dose 80 MG; Start 04/25/17 at 21:00 Ergocalciferol (Drisdol) 50,000 unit Mo@09 PO Last administered on 04/29/17 17 :21; Admin Dose 50,000 UNIT; Start 04/24/17 at 23:00 Ferrous Sulfate (Ferrous Sulfate (Ec)) 325 mg DAILY PO Last administered on 10:04; Admin Dose 325 MG; Start 04/25/17 at 09:00 Multivit/Ca Carb/ B Cmplx/FA/Prenat (Isabel-Brenda) 1 tab DAILY PO Last administered on 04/30/17 10:05; Admin Dose 1 TAB; Start 04/25/17 at 09:00 Pantoprazole (Protonix Tab) 40 mg DAILY@06 PO Last administered on 04/30/17 06 :00; Admin Dose 40 MG; Start 04/25/17 at 06:00 Guaifenesin/ Dextromethorphan (Mucinex Dm) 1 tab BID PO Last administered on 10:06; Admin Dose 1 TAB; Start 04/25/17 at 03:15 Hydralazine HCl (Apresoline) 10 mg Q4H PRN IV ELEVATED BLOOD PRESSURE Last administered on 04/28/17 07:04; Admin Dose 10 MG; Start 04/25/17 at 03:30 Diagnostic Test (Pha) (Accu-Chek) 1 ea 02 XX Last administered on 04/30/17 02: 00; Admin Dose 1 EA; Start 04/26/17 at 02:00 Citric Acid/ Sodium Citrate (Bicitra) 30 ml TID PO Last administered on 10:04; Admin Dose 30 ML; Start 04/25/17 at 13:00 Aspirin (Aspirin) 81 mg DAILY PO Last administered on 04/30/17 10:05; Admin Dose 81 MG; Start 04/25/17 at 12:00 Heparin Sodium (Porcine) (Heparin (5000 Units/0.5 ml)) 5,000 unit BID SC Last administered on 04/30/17 10:16; Admin Dose 5,000 UNIT; Start 04/26/17 at 09:00 Miscellaneous Information 1 ea NOTE XX ; Start 04/25/17 at 12:00 Glucose (Glutose) 15 gm Q15M PRN PO DECREASED GLUCOSE; Start 04/25/17 at 12:00 Glucose (Glutose) 22.5 gm Q15M PRN PO DECREASED GLUCOSE; Start 04/25/17 at 12: 00 Dextrose (D50w Syringe) 25 ml Q15M PRN IV DECREASED GLUCOSE; Start 04/25/17 at 12:00 Dextrose (D50w Syringe) 50 ml Q15M PRN IV DECREASED GLUCOSE; Start 04/25/17 at 12:00 Glucagon (Glucagen) 1 mg Q15M PRN IM DECREASED GLUCOSE; Start 04/25/17 at 12: 00 Glucose (Glutose) 15 gm Q15M PRN BUCCAL DECREASED GLUCOSE; Start 04/25/17 at 12:00 Furosemide (Lasix) 20 mg BID IV Last administered on 04/30/17 10:06; Admin Dose 20 MG; Start 04/26/17 at 09:00 Fish Oil (Fish Oil) 2,000 mg BID PO Last administered on 04/30/17 10:04; Admin Dose 2,000 MG; Start 04/27/17 at 21:00 EZETIMIBE (Zetia) 10 mg DAILY PO Last administered on 04/30/17 10:05; Admin Dose 10 MG; Start 04/28/17 at 09:00 Metoprolol Succinate (Toprol Xl) 25 mg DAILY PO Last administered on 04/30/17 10:05; Admin Dose 25 MG; Start 04/27/17 at 11:00 Morphine Sulfate (morphine) 2 mg Q4H PRN IV Pain Last administered on 22:51; Admin Dose 2 MG; Start 04/28/17 at 09:00 Linagliptin 5 mg 5 mg DAILY PO Last administered on 04/30/17 10:06; Admin Dose 5 MG; Start 04/28/17 at 12:00 Cefepime HCl/ Dextrose (Maxipime/D5W) 50 ml @ 100 mls/hr Q24H IVPB Last administered on 04/29/17 17:22; Admin Dose 100 MLS/HR; Start 04/29/17 at 13:00 Insulin Glargine (Lantus) 60 unit QHS SC Last administered on 04/29/17 21:11; Admin Dose 60 UNIT; Start 04/29/17 at 21:00 Methylprednisolone Sodium Succinate (Solu-Medrol) 40 mg Q8 IV ; Start 04/30/17 at 14:00; Status Dell Ramos DO Apr 30, 2017 12:06
--- NOTE | 2017-04-30 12:07 | CONS ---
Date/Time of Note Date/Time of Note DATE: 04/30/17 TIME: 12:06 Consultation Date/Type/Reason Admit Date/Time Apr 24, 2017 at 19:05 Date of Consultation: Apr 30, 2017 Type of Consultation: Pulmonary Hx of Present Illness Consultation dictated #[id number]. Patient with COPD exacerbation and some element of noncardiogenic pulmonary edema. Patient would benefit from a trial of Pulmicort 0.5 mg twice daily via nebulizer as well as Solu-Medrol 40 mg IV every 8 hours at least for 3 doses. Will monitor blood sugars. Past Medical History Medical History: coronary artery disease, deep vein thrombosis, diabetes, high cholesterol, hypertension, renal disease Past Surgical History Past Surgical Hx: other (Coronary angiogram and stomach surgery ) Social History Alcohol Use: occasionally Smoking Status: Former smoker Drug Use: none Exam/Review of Systems Vital Signs Vitals Vital Signs Date Time Temp Pulse Resp B/P Pulse Ox O2 Delivery O2 Flow Rate FiO2 04/30/17 11:26 97.8 92 18 138/60 97 04/30/17 09:23 2.0 04/30/17 09:23 Nasal Cannula 04/27/17 17:23 21 Intake and Output 04/29/17 04/29/17 04/30/17 15:00 23:00 07:00 Intake Total 600 ml 200 ml Output Total 1900 ml 400 ml Balance -1300 ml -200 ml Results Result Diagram: 04/30/17 0816 04/30/17 0555 Results 24 hrs Laboratory Tests Test 04/29/17 12:22 04/29/17 16:03 04/29/17 17:25 04/29/17 20:44 Bedside Glucose 241 H 234 H 113 Hemoglobin 7.0 L Hematocrit 18.6 L Test 04/30/17 02:33 04/30/17 05:55 04/30/17 08:16 04/30/17 08:29 Bedside Glucose 264 H 360 H Sodium Level 137 Potassium Level 5.6 H Chloride Level 97 Carbon Dioxide Level 28 Anion Gap 18 H Blood Urea Nitrogen 98 H Creatinine 4.50 H Glucose Level 309 H Calcium Level 8.9 Phosphorus Level 4.3 Magnesium Level 1.8 White Blood Count 14.1 H Red Blood Count 1.90 #L Hemoglobin 10.7 #L Hematocrit 32.1 #L Mean Corpuscular Volume 90.5 Mean Corpuscular Hemoglobin 30.0 Mean Corpuscular Hemoglobin Concent 33.1 Red Cell Distribution Width 16.0 H Platelet Count 219 Mean Platelet Volume 12.7 H Segmented Neutrophils % (Manual) 78 H Lymphocytes % (Manual) 12 L Monocytes % (Manual) 6 Eosinophils % (Manual) 3 Metamyelocytes % (manual) 1 H Absolute Lymphocytes (Manual) 1.6 Absolute Monocytes (Manual) 0.8 Metamyelocytes # 0.1 H Platelet Estimate NORMAL Giant Platelets 2 H Polychromasia 3+ Anisocytosis 2+ Microcytosis 1+ Medications Medications Current Medications Ondansetron HCl (Zofran Tab) 4 mg Q6H PRN PO NAUSEA AND/OR VOMITING; Start at 23:00 Nitroglycerin (Nitroglycerin (Sl Tab) 0.4 Mg) 1 tab Q5M PRN SL CHEST PAIN; Start 04/24/17 at 23:00 Docusate Sodium (Colace) 100 mg Q12H PRN PO CONSTIPATION; Start 04/24/17 at 23 :00 Bisacodyl (Dulcolax) 5 mg DAILY PRN PO CONSTIPATION; Start 04/24/17 at 23:00 Amlodipine Besylate (Norvasc) 5 mg DAILY PO Last administered on 04/30/17 10: 05; Admin Dose 5 MG; Start 04/25/17 at 09:00 Atorvastatin Calcium (Lipitor) 80 mg QHS PO Last administered on 04/29/17 21: 06; Admin Dose 80 MG; Start 04/25/17 at 21:00 Ergocalciferol (Drisdol) 50,000 unit Mo@09 PO Last administered on 04/29/17 17 :21; Admin Dose 50,000 UNIT; Start 04/24/17 at 23:00 Ferrous Sulfate (Ferrous Sulfate (Ec)) 325 mg DAILY PO Last administered on 10:04; Admin Dose 325 MG; Start 04/25/17 at 09:00 Multivit/Ca Carb/ B Cmplx/FA/Prenat (Isabel-Brenda) 1 tab DAILY PO Last administered on 04/30/17 10:05; Admin Dose 1 TAB; Start 04/25/17 at 09:00 Pantoprazole (Protonix Tab) 40 mg DAILY@06 PO Last administered on 04/30/17 06 :00; Admin Dose 40 MG; Start 04/25/17 at 06:00 Guaifenesin/ Dextromethorphan (Mucinex Dm) 1 tab BID PO Last administered on 10:06; Admin Dose 1 TAB; Start 04/25/17 at 03:15 Hydralazine HCl (Apresoline) 10 mg Q4H PRN IV ELEVATED BLOOD PRESSURE Last administered on 04/28/17 07:04; Admin Dose 10 MG; Start 04/25/17 at 03:30 Diagnostic Test (Pha) (Accu-Chek) 1 ea 02 XX Last administered on 04/30/17 02: 00; Admin Dose 1 EA; Start 04/26/17 at 02:00 Citric Acid/ Sodium Citrate (Bicitra) 30 ml TID PO Last administered on 10:04; Admin Dose 30 ML; Start 04/25/17 at 13:00 Aspirin (Aspirin) 81 mg DAILY PO Last administered on 04/30/17 10:05; Admin Dose 81 MG; Start 04/25/17 at 12:00 Heparin Sodium (Porcine) (Heparin (5000 Units/0.5 ml)) 5,000 unit BID SC Last administered on 04/30/17 10:16; Admin Dose 5,000 UNIT; Start 04/26/17 at 09:00 Miscellaneous Information 1 ea NOTE XX ; Start 04/25/17 at 12:00 Glucose (Glutose) 15 gm Q15M PRN PO DECREASED GLUCOSE; Start 04/25/17 at 12:00 Glucose (Glutose) 22.5 gm Q15M PRN PO DECREASED GLUCOSE; Start 04/25/17 at 12: 00 Dextrose (D50w Syringe) 25 ml Q15M PRN IV DECREASED GLUCOSE; Start 04/25/17 at 12:00 Dextrose (D50w Syringe) 50 ml Q15M PRN IV DECREASED GLUCOSE; Start 04/25/17 at 12:00 Glucagon (Glucagen) 1 mg Q15M PRN IM DECREASED GLUCOSE; Start 04/25/17 at 12: 00 Glucose (Glutose) 15 gm Q15M PRN BUCCAL DECREASED GLUCOSE; Start 04/25/17 at 12:00 Furosemide (Lasix) 20 mg BID IV Last administered on 04/30/17 10:06; Admin Dose 20 MG; Start 04/26/17 at 09:00 Fish Oil (Fish Oil) 2,000 mg BID PO Last administered on 04/30/17 10:04; Admin Dose 2,000 MG; Start 04/27/17 at 21:00 EZETIMIBE (Zetia) 10 mg DAILY PO Last administered on 04/30/17 10:05; Admin Dose 10 MG; Start 04/28/17 at 09:00 Metoprolol Succinate (Toprol Xl) 25 mg DAILY PO Last administered on 04/30/17 10:05; Admin Dose 25 MG; Start 04/27/17 at 11:00 Morphine Sulfate (morphine) 2 mg Q4H PRN IV Pain Last administered on 22:51; Admin Dose 2 MG; Start 04/28/17 at 09:00 Linagliptin 5 mg 5 mg DAILY PO Last administered on 04/30/17 10:06; Admin Dose 5 MG; Start 04/28/17 at 12:00 Cefepime HCl/ Dextrose (Maxipime/D5W) 50 ml @ 100 mls/hr Q24H IVPB Last administered on 04/29/17 17:22; Admin Dose 100 MLS/HR; Start 04/29/17 at 13:00 Insulin Glargine (Lantus) 60 unit QHS SC Last administered on 04/29/17 21:11; Admin Dose 60 UNIT; Start 04/29/17 at 21:00 MICH SAMANO Apr 30, 2017 12:07
--- NOTE | 2017-04-30 12:23 | PN ---
Date/Time of Note Date/Time of Note DATE: 04/30/17 TIME: 12:11 Assessment/Plan VTE Prophylaxis VTE Prophylaxis Intervention: SCD's Lines/Catheters [facility] Peripheral IV Urinary Cath still in place: No Assessment/Plan Chief Complaint/Hosp Course Assessment and plan 1. Acute respiratory failure. Continue on breathing tx and oxygen. Titrate down as tolerated. continue HD 2. Non-ST elevated myocardial infarction suspect type II event considering underlying worsening renal function. Continue on antiplatelet therapy. Manager Of Hospital following. Continue recommendations. 3. Gram-positive bacteremia. Suspect contaminant. ID consult is following. Antibiotic regimen per ID consult. 4. Acute on chronic CHF with diastolic dysfunction. Continue on cardiovascular medications. Plan for dialysis 5. Pulmonary hypertension. Noted with PA systolic pressure of 44 mmHg. Continue on O2. 6. CAD. Patient is status post PTCA in the past. Continue on antiplatelet therapy. 7. Metabolic acidosis secondary to worsening renal function. Continue on Bicitra per retail coordinator. 8. Dyslipidemia. Continue on statin medication. 9. Diabetes. Continue on insulin regimen. Adjust as needed. 10. Essential hypertension continue antihypertensives and adjust needed. 11. Left popliteal vein DVT. Patient did have prior history of DVT in the lower extremities and was taking Xarelto at home. Discontinued now due to worsening renal function. Follow-up with vascular surgeon or conditions. 12. Acute on chronic kidney disease. With worsening renal function. Plan for dialysis. Plan for dialysis cath placement today. Disposition and plan: continue HD. monitor for improvement of respiratory status Discussed plan of care with Dr. Yrok Problems: Subjective 24 Hr Interval Summary Free Text/Dictation still with some dyspnea, but better Exam/Review of Systems Vital Signs Vitals Vital Signs Date Time Temp Pulse Resp B/P Pulse Ox O2 Delivery O2 Flow Rate FiO2 04/30/17 11:26 97.8 92 18 138/60 97 04/30/17 09:23 2.0 04/30/17 09:23 Nasal Cannula 04/27/17 17:23 21 Intake and Output 04/29/17 04/29/17 04/30/17 15:00 23:00 07:00 Intake Total 600 ml 200 ml Output Total 1900 ml 400 ml Balance -1300 ml -200 ml Exam Constitutional: alert, oriented Head: normocephalic Eyes: nl conjunctiva Neck: non-tender, supple Respiratory: other (Diminished and still congested Cardiovascular: other (Regular rate) Musculoskeletal: swelling (Bilateral lower extremities) 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: FITNESS COORDINATOR II-XII intact, nl mental status, nl speech Results Result Diagram: 04/30/17 0816 04/30/17 0555 Results 24 hrs Laboratory Tests Test 04/29/17 12:22 04/29/17 16:03 04/29/17 17:25 04/29/17 20:44 Bedside Glucose 241 H 234 H 113 Hemoglobin 7.0 L Hematocrit 18.6 L Test 04/30/17 02:33 04/30/17 05:55 04/30/17 08:16 04/30/17 08:29 Bedside Glucose 264 H 360 H Sodium Level 137 Potassium Level 5.6 H Chloride Level 97 Carbon Dioxide Level 28 Anion Gap 18 H Blood Urea Nitrogen 98 H Creatinine 4.50 H Glucose Level 309 H Calcium Level 8.9 Phosphorus Level 4.3 Magnesium Level 1.8 White Blood Count 14.1 H Red Blood Count 1.90 #L Hemoglobin 10.7 #L Hematocrit 32.1 #L Mean Corpuscular Volume 90.5 Mean Corpuscular Hemoglobin 30.0 Mean Corpuscular Hemoglobin Concent 33.1 Red Cell Distribution Width 16.0 H Platelet Count 219 Mean Platelet Volume 12.7 H Segmented Neutrophils % (Manual) 78 H Lymphocytes % (Manual) 12 L Monocytes % (Manual) 6 Eosinophils % (Manual) 3 Metamyelocytes % (manual) 1 H Absolute Lymphocytes (Manual) 1.6 Absolute Monocytes (Manual) 0.8 Metamyelocytes # 0.1 H Platelet Estimate NORMAL Giant Platelets 2 H Polychromasia 3+ Anisocytosis 2+ Microcytosis 1+ Medications Medications Current Medications Ondansetron HCl (Zofran Tab) 4 mg Q6H PRN PO NAUSEA AND/OR VOMITING; Start at 23:00 Nitroglycerin (Nitroglycerin (Sl Tab) 0.4 Mg) 1 tab Q5M PRN SL CHEST PAIN; Start 04/24/17 at 23:00 Docusate Sodium (Colace) 100 mg Q12H PRN PO CONSTIPATION; Start 04/24/17 at 23 :00 Bisacodyl (Dulcolax) 5 mg DAILY PRN PO CONSTIPATION; Start 04/24/17 at 23:00 Amlodipine Besylate (Norvasc) 5 mg DAILY PO Last administered on 04/30/17 10: 05; Admin Dose 5 MG; Start 04/25/17 at 09:00 Atorvastatin Calcium (Lipitor) 80 mg QHS PO Last administered on 04/29/17 21: 06; Admin Dose 80 MG; Start 04/25/17 at 21:00 Ergocalciferol (Drisdol) 50,000 unit Mo@09 PO Last administered on 04/29/17 17 :21; Admin Dose 50,000 UNIT; Start 04/24/17 at 23:00 Ferrous Sulfate (Ferrous Sulfate (Ec)) 325 mg DAILY PO Last administered on 10:04; Admin Dose 325 MG; Start 04/25/17 at 09:00 Multivit/Ca Carb/ B Cmplx/FA/Prenat (Isabel-Brenda) 1 tab DAILY PO Last administered on 04/30/17 10:05; Admin Dose 1 TAB; Start 04/25/17 at 09:00 Pantoprazole (Protonix Tab) 40 mg DAILY@06 PO Last administered on 04/30/17 06 :00; Admin Dose 40 MG; Start 04/25/17 at 06:00 Guaifenesin/ Dextromethorphan (Mucinex Dm) 1 tab BID PO Last administered on 10:06; Admin Dose 1 TAB; Start 04/25/17 at 03:15 Hydralazine HCl (Apresoline) 10 mg Q4H PRN IV ELEVATED BLOOD PRESSURE Last administered on 04/28/17 07:04; Admin Dose 10 MG; Start 04/25/17 at 03:30 Diagnostic Test (Pha) (Accu-Chek) 1 ea 02 XX Last administered on 04/30/17 02: 00; Admin Dose 1 EA; Start 04/26/17 at 02:00 Citric Acid/ Sodium Citrate (Bicitra) 30 ml TID PO Last administered on 10:04; Admin Dose 30 ML; Start 04/25/17 at 13:00 Aspirin (Aspirin) 81 mg DAILY PO Last administered on 04/30/17 10:05; Admin Dose 81 MG; Start 04/25/17 at 12:00 Heparin Sodium (Porcine) (Heparin (5000 Units/0.5 ml)) 5,000 unit BID SC Last administered on 04/30/17 10:16; Admin Dose 5,000 UNIT; Start 04/26/17 at 09:00 Miscellaneous Information 1 ea NOTE XX ; Start 04/25/17 at 12:00 Glucose (Glutose) 15 gm Q15M PRN PO DECREASED GLUCOSE; Start 04/25/17 at 12:00 Glucose (Glutose) 22.5 gm Q15M PRN PO DECREASED GLUCOSE; Start 04/25/17 at 12: 00 Dextrose (D50w Syringe) 25 ml Q15M PRN IV DECREASED GLUCOSE; Start 04/25/17 at 12:00 Dextrose (D50w Syringe) 50 ml Q15M PRN IV DECREASED GLUCOSE; Start 04/25/17 at 12:00 Glucagon (Glucagen) 1 mg Q15M PRN IM DECREASED GLUCOSE; Start 04/25/17 at 12: 00 Glucose (Glutose) 15 gm Q15M PRN BUCCAL DECREASED GLUCOSE; Start 04/25/17 at 12:00 Furosemide (Lasix) 20 mg BID IV Last administered on 04/30/17 10:06; Admin Dose 20 MG; Start 04/26/17 at 09:00 Fish Oil (Fish Oil) 2,000 mg BID PO Last administered on 04/30/17 10:04; Admin Dose 2,000 MG; Start 04/27/17 at 21:00 EZETIMIBE (Zetia) 10 mg DAILY PO Last administered on 04/30/17 10:05; Admin Dose 10 MG; Start 04/28/17 at 09:00 Metoprolol Succinate (Toprol Xl) 25 mg DAILY PO Last administered on 04/30/17 10:05; Admin Dose 25 MG; Start 04/27/17 at 11:00 Morphine Sulfate (morphine) 2 mg Q4H PRN IV Pain Last administered on 22:51; Admin Dose 2 MG; Start 04/28/17 at 09:00 Linagliptin 5 mg 5 mg DAILY PO Last administered on 04/30/17 10:06; Admin Dose 5 MG; Start 04/28/17 at 12:00 Cefepime HCl/ Dextrose (Maxipime/D5W) 50 ml @ 100 mls/hr Q24H IVPB Last administered on 04/29/17 17:22; Admin Dose 100 MLS/HR; Start 04/29/17 at 13:00 Insulin Glargine (Lantus) 60 unit QHS SC Last administered on 04/29/17t 21:11; Admin Dose 60 UNIT; Start 04/29/17 at 21:00 Methylprednisolone Sodium Succinate (Solu-Medrol) 40 mg Q8 IV ; Start 04/30/17 at 14:00; Status PERRY MAK Apr 30, 2017 12:23
--- NOTE | 2017-04-30 12:56 | CONS ---
DATE OF ADMISSION: 04/24/2017 DATE OF CONSULTATION: 04/30/2017 PULMONARY CONSULTATION REFERRING PHYSICIAN: Dr. Stanley Najera. REASON FOR REFERRAL: Evaluation of persistent shortness of breath. HISTORY OF PRESENT ILLNESS: Mr. Arora is a pleasant 66-year-old male who was admitted on the 29t h of last month with a week history of shortness of breath, wheezing, coughing. Upon evaluation, th e patient was diagnosed with acute bronchitis with COPD exacerbation as well as renal failure, which he has a history of cough with some element of fluid overload. The patient has been dialyzed while in the hospital. He still complains of shortness of breath with wheezing and scant cough. Denies any chest pain, fever, chills. PAST MEDICAL HISTORY: 1. Renal failure on hemodialysis. 2. History of COPD. 3. History of anemia. 4. Diabetes. 5. Hypertension. 6. Gout. 7. Acid reflux disease. 8. History of DVT. MEDICATIONS: Patient is currently on: 1. Cefepime 0.5 grams q.24h. 2. Albuterol q.4h. 3. Amlodipine 5 mg a day. 4. Aspirin 81 mg a day. 5. Lipitor 80 mg a day. 6. Zetia 10 mg a day. 7. Feosol 325 mg daily. 8. Furosemide 20 mg IV q.12h. 9. Subcutaneous heparin 5000 units q.12h. 10. Lantus insulin 60 units daily. 11. Metoprolol 25 mg daily. 12. Morphine on a p.r.n. basis. 13. Sliding scale insulin. 14. Protonix 40 mg daily. ALLERGIES: NONE. SOCIAL HISTORY: Patient is a former smoker, drinks alcohol socially. FAMILY HISTORY: He is , he has a supportive family. OCCUPATIONAL HISTORY: The patient is on disability. REVIEW OF SYSTEMS: Denies any headache, visual changes, sinus symptoms, postnasal drip, dysphagia, odynophagia, sore throat. Does complain of shortness of breath with wheezing and cough. Denies any hemoptysis. Denies any sputum production. Denies any abdominal pain, nausea, vomiting, melena or hematochezia. Denies any orthopnea or any edema. PHYSICAL EXAMINATION: GENERAL: Elderly male, awake and alert, currently in no distress. VITAL SIGNS: Temperature is 97.8 degrees Fahrenheit, respiratory rate is 18 per minute, heart rate 92 per minute, blood pressure 138/60, O2 saturation 97% on 2 liter nasal cannula. HEENT: Supple neck, positive JVD, no lymphadenopathy, midline trachea, no thyromegaly. Pharynx ermias ar, no neck bruits. Patient has bilateral intraocular lens implants. He is edentulous and wears de ntures. CHEST: Bilateral expiratory wheezing. HEART: S1, S2 audible. No murmurs, regular rhythm. ABDOMEN: Soft, protuberant. No organomegaly, nontender, bowel sounds audible. EXTREMITIES: No edema. Pulses 1+ bilaterally. MECHANIC SENIOR: No focal deficit. LABORATORY DATA: Chest x-ray was reviewed from the 4th of this month, which is essentially unremark able. Labs today sodium 137, potassium 5.6, chloride 97, bicarbonate 28, BUN 98, creatinine 4.5. Admissio n creatinine was 5.7, white count today is 14.1, hemoglobin 10.7, platelet count of 219. ASSESSMENT AND RECOMMENDATIONS: 1. The patient admitted for shortness of breath which is multifactorial from underlying chronic obs tructive pulmonary disease exacerbation with acute bronchitis with superimposed mild pulmonary edema . 2. History of renal failure on hemodialysis. 3. Hypertension. 4. Hyperglycemia with history of diabetes. 5. Prior history of coronary artery disease. RECOMMENDATIONS: Continue current treatment. Add Pulmicort 0.5 mg b.i.d. by nebulizer and also giv e patient Solu-Medrol 40 mg q.8h. at least for 3 doses. The patient will be reassessed in 24 hours. Dictated By: MICH OLMSTEAD/FREDY Conf#: [id number] DID#: [id number]
[2017-04-30] MEDS: CEFEPIME HCL IVPB SCH (13:00)
[2017-04-30] MEDS: DEXTROSE 5% IVPB SCH (13:00)
--- NOTE | 2017-04-30 13:32 | CONS ---
Date/Time of Note Date/Time of Note DATE: 04/30/17 TIME: 13:27 Assessment/Plan Assessment/Plan Chief Complaint/Hosp Course Pleasant Litzy lopezman with his family present in the room reporting a 30 year history of diabetes mellitus type 2. He had been on oral agent therapy but as his kidneys declined he was transitioned over to a multiple daily injection regimen using Lantus and NovoLog. He intermittently takes full dose Januvia 100 mg despite his renal dysfunction Problems: (1) COPD (chronic obstructive pulmonary disease) Status: Chronic Comment: Patient has been placed on Solu-Medrol for this by pulmonary oracle identity management consultant. I will add an NPH at the time of the Solu-Medrol dose to help cover for the perturbations and sugar that would be expected. Qualifiers: COPD type: emphysema Emphysema type: unspecified Qualified Code: J43.9 - Pulmonary emphysema, unspecified emphysema type (2) Diabetes mellitus type 2 in obese Status: Chronic Comment: Adjusting insulin to bring the diabetes under control. Restarted get there although the Solu-Medrol is going to affect the sugar control. (3) End stage renal disease on dialysis due to type 2 diabetes mellitus Status: Chronic Comment: As per nephrology. Dialysis catheter is now in place temporarily and the patient is receiving dialysis (4) Hyperlipidemia associated with type 2 diabetes mellitus Status: Chronic Comment: On statin therapy (5) Essential hypertension Status: Chronic Comment: Adequate control (6) Hyperuricemia Status: Chronic Comment: On appropriate medical therapy (7) Hepatitis C antibody positive in blood Status: Acute (8) Anemia, chronic renal failure Status: Chronic Comment: Patient received transfusion yesterday and is in much better condition now Qualifiers: Chronic kidney disease stage: stage 5 Qualified Code: N18.5 - Anemia of chronic renal failure, stage 5 Consultation Date/Type/Reason Admit Date/Time Apr 24, 2017 at 19:05 Initial Consult Date 04/27/17 Type of Consultation: Endocrinology Reason for Consultation Diabetes mellitus type 2 on an insulin based regimen complicated by end-stage renal disease; retinopathy; peripheral neuropathy; also complicated by COPD Referring Provider: NANY PRIEST NP 24 HR Interval Summary Constitutional: no complaints Exam/Review of Systems Vital Signs Vitals Vital Signs Date Time Temp Pulse Resp B/P Pulse Ox O2 Delivery O2 Flow Rate FiO2 04/30/17 12:45 81 04/30/17 11:30 17 04/30/17 11:26 97.8 138/60 97 04/30/17 09:23 2.0 04/30/17 09:23 Nasal Cannula 04/27/17 17:23 21 Intake and Output 04/29/17 04/29/17 04/30/17 14:59 22:59 06:59 Intake Total 600 ml 200 ml Output Total 1900 ml 400 ml Balance -1300 ml -200 ml Results No change in exam Result Diagram: 04/30/17 0816 04/30/17 0555 Results 24 hrs Laboratory Tests Test 04/29/17 16:03 04/29/17 17:25 04/29/17 20:44 04/30/17 02:33 Hemoglobin 7.0 L Hematocrit 18.6 L Bedside Glucose 234 H 113 264 H Test 04/30/17 05:55 04/30/17 08:16 04/30/17 08:29 04/30/17 12:08 Sodium Level 137 Potassium Level 5.6 H Chloride Level 97 Carbon Dioxide Level 28 Anion Gap 18 H Blood Urea Nitrogen 98 H Creatinine 4.50 H Glucose Level 309 H Calcium Level 8.9 Phosphorus Level 4.3 Magnesium Level 1.8 White Blood Count 14.1 H Red Blood Count 1.90 #L Hemoglobin 10.7 #L Hematocrit 32.1 #L Mean Corpuscular Volume 90.5 Mean Corpuscular Hemoglobin 30.0 Mean Corpuscular Hemoglobin Concent 33.1 Red Cell Distribution Width 16.0 H Platelet Count 219 Mean Platelet Volume 12.7 H Segmented Neutrophils % (Manual) 78 H Lymphocytes % (Manual) 12 L Monocytes % (Manual) 6 Eosinophils % (Manual) 3 Metamyelocytes % (manual) 1 H Absolute Lymphocytes (Manual) 1.6 Absolute Monocytes (Manual) 0.8 Metamyelocytes # 0.1 H Platelet Estimate NORMAL Giant Platelets 2 H Polychromasia 3+ Anisocytosis 2+ Microcytosis 1+ Bedside Glucose 360 H 165 Medications Medications Current Medications Ondansetron HCl (Zofran Tab) 4 mg Q6H PRN PO NAUSEA AND/OR VOMITING; Start at 23:00 Nitroglycerin (Nitroglycerin (Sl Tab) 0.4 Mg) 1 tab Q5M PRN SL CHEST PAIN; Start 04/24/17 at 23:00 Docusate Sodium (Colace) 100 mg Q12H PRN PO CONSTIPATION; Start 04/24/17 at 23 :00 Bisacodyl (Dulcolax) 5 mg DAILY PRN PO CONSTIPATION; Start 04/24/17 at 23:00 Amlodipine Besylate (Norvasc) 5 mg DAILY PO Last administered on 04/30/17 10: 05; Admin Dose 5 MG; Start 04/25/17 at 09:00 Atorvastatin Calcium (Lipitor) 80 mg QHS PO Last administered on 04/29/17 21: 06; Admin Dose 80 MG; Start 04/25/17 at 21:00 Ergocalciferol (Drisdol) 50,000 unit Mo@09 PO Last administered on 04/29/17 17 :21; Admin Dose 50,000 UNIT; Start 04/24/17 at 23:00 Ferrous Sulfate (Ferrous Sulfate (Ec)) 325 mg DAILY PO Last administered on 10:04; Admin Dose 325 MG; Start 04/25/17 at 09:00 Multivit/Ca Carb/ B Cmplx/FA/Prenat (Isabel-Brenda) 1 tab DAILY PO Last administered on 04/30/17 10:05; Admin Dose 1 TAB; Start 04/25/17 at 09:00 Pantoprazole (Protonix Tab) 40 mg DAILY@06 PO Last administered on 04/30/17 06 :00; Admin Dose 40 MG; Start 04/25/17 at 06:00 Guaifenesin/ Dextromethorphan (Mucinex Dm) 1 tab BID PO Last administered on 10:06; Admin Dose 1 TAB; Start 04/25/17 at 03:15 Hydralazine HCl (Apresoline) 10 mg Q4H PRN IV ELEVATED BLOOD PRESSURE Last administered on 04/28/17 07:04; Admin Dose 10 MG; Start 04/25/17 at 03:30 Diagnostic Test (Pha) (Accu-Chek) 1 ea 02 XX Last administered on 04/30/17 02: 00; Admin Dose 1 EA; Start 04/26/17 at 02:00 Citric Acid/ Sodium Citrate (Bicitra) 30 ml TID PO Last administered on 10:04; Admin Dose 30 ML; Start 04/25/17 at 13:00 Aspirin (Aspirin) 81 mg DAILY PO Last administered on 04/30/17 10:05; Admin Dose 81 MG; Start 04/25/17 at 12:00 Heparin Sodium (Porcine) (Heparin (5000 Units/0.5 ml)) 5,000 unit BID SC Last administered on 04/30/17 10:16; Admin Dose 5,000 UNIT; Start 04/26/17 at 09:00 Miscellaneous Information 1 ea NOTE XX ; Start 04/25/17 at 12:00 Glucose (Glutose) 15 gm Q15M PRN PO DECREASED GLUCOSE; Start 04/25/17 at 12:00 Glucose (Glutose) 22.5 gm Q15M PRN PO DECREASED GLUCOSE; Start 04/25/17 at 12: 00 Dextrose (D50w Syringe) 25 ml Q15M PRN IV DECREASED GLUCOSE; Start 04/25/17 at 12:00 Dextrose (D50w Syringe) 50 ml Q15M PRN IV DECREASED GLUCOSE; Start 04/25/17 at 12:00 Glucagon (Glucagen) 1 mg Q15M PRN IM DECREASED GLUCOSE; Start 04/25/17 at 12: 00 Glucose (Glutose) 15 gm Q15M PRN BUCCAL DECREASED GLUCOSE; Start 04/25/17 at 12:00 Furosemide (Lasix) 20 mg BID IV Last administered on 04/30/17 10:06; Admin Dose 20 MG; Start 04/26/17 at 09:00 Fish Oil (Fish Oil) 2,000 mg BID PO Last administered on 04/30/17 10:04; Admin Dose 2,000 MG; Start 04/27/17 at 21:00 EZETIMIBE (Zetia) 10 mg DAILY PO Last administered on 04/30/17 10:05; Admin Dose 10 MG; Start 04/28/17 at 09:00 Metoprolol Succinate (Toprol Xl) 25 mg DAILY PO Last administered on 04/30/17 10:05; Admin Dose 25 MG; Start 04/27/17 at 11:00 Morphine Sulfate (morphine) 2 mg Q4H PRN IV Pain Last administered on 22:51; Admin Dose 2 MG; Start 04/28/17 at 09:00 Linagliptin 5 mg 5 mg DAILY PO Last administered on 04/30/17 10:06; Admin Dose 5 MG; Start 04/28/17 at 12:00 Cefepime HCl/ Dextrose (Maxipime/D5W) 50 ml @ 100 mls/hr Q24H IVPB Last administered on 04/29/17t 17:22; Admin Dose 100 MLS/HR; Start 04/29/17 at 13:00 Methylprednisolone Sodium Succinate (Solu-Medrol) 40 mg Q8 IV ; Start 04/30/17 at 14:00 Insulin Human NPH (Humulin N) 6 unit Q8 SC ; Start 04/30/17 at 14:00 Tiotropium [place] (Spiriva) 1 inh DAILY INH ; Start 04/30/17 at 13:30; Status UNV Salmeterol Xinafoate/ Fluticasone (Advair 250/50 Diskus) 1 inh BID INH ; Start 04/30/17 at 21:00; Status UNV Insulin Human NPH (Humulin N) 10 unit Q8 SC ; Start 04/30/17 at 14:00; Status UNV Insulin Glargine (Lantus) 66 unit QHS SC ; Start 04/30/17 at 21:00; Status UNV MARA GRAYSON MD Apr 30, 2017 13:32
--- NOTE | 2017-04-30 13:33 | PN ---
DATE: 04/30/2017 SUBJECTIVE: No acute changes. The patient is awake, looks comfortable, no fevers. He has a new ri ght femoral Madi catheter placed yesterday. LABORATORY DATA: WBC today 14.1, neutrophils 78, no bands. ANTIMICROBIALS: Patient is on Cefepime. PHYSICAL EXAMINATION: GENERAL: This is a fragile well-developed elderly man who is awake, in no distress. HEENT: Head atraumatic, normocephalic. Sclerae anicteric. Buccal mucosa dry. NECK: Supple. CHEST: Rise symmetrical. Breath sounds with scattered crackles and expiratory wheezes. HEART: S1, S2. ABDOMEN: Soft, bowel tones present. EXTREMITIES: Without cyanosis. ASSESSMENT: 1. Systemic inflammatory response syndrome with ongoing leukocytosis. 2. Acute chronic obstructive pulmonary disease exacerbation. 3. Pulmonary edema. 4. End-stage renal disease, now on hemodialysis. 5. Diabetes. 6. History of coronary artery bypass graft. 7. Hypertension. PLAN: The patient remains stable, being seen by pulmonary and started on steroids. Continue presen t care. Continue antibiotics for a couple more days. Dictated By: MARIELA BANGURA LEAD INFORMATICA DEVELOPER for LOYD SOTELO MD NI/NTS Conf#: [id number] DID#: [id number]
[2017-04-30] MEDS ORDERED: NPH, HUMAN INSULIN ISOPHANE 3ML VIAL SC SCH (14:00)
[2017-04-30] MEDS: BUDESONIDE (NEB) 0.5MG/2ML AMP HHN SCH ×2 (14:39→20:00)
--- NOTE | 2017-04-30 17:20 | CONS ---
Date/Time of Note Date/Time of Note DATE: 04/30/17 TIME: 17:19 Assessment/Plan Assessment/Plan Additional Assessment/Plan 1. 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 H/o CKD due to diabetic nehropathy as per pt was stage IV/V with eGFR 15 as outpatient 3. Acute hyperkalemia due to TROY on CKD - resolved after pt gets started on HD 4. Metabolic acidosis due to worsenign renal failure 5. H/ CAD S/p previous coronary angiogram as per patient 6. Hypertension 7. Type II DM 8. Hyperlipidemia 9. Acute NSETMI due to CHF Plan : hepatitis C antibody positive, Hepatitis A antibody positive HD today fro 3 hr with PRBC transfusion Renal US showed small size kidneys, no hydronephrosis, c/w CKD on Epogen for anemia will follow up Consultation Date/Type/Reason Admit Date/Time Apr 24, 2017 at 19:05 Initial Consult Date 04/25/17 Type of Consultation: NEPHROLOGY Referring Provider: NANY PRIEST SPANISH SPEAKING NANNY Exam/Review of Systems Vital Signs Vitals Vital Signs Date Time Temp Pulse Resp B/P Pulse Ox O2 Delivery O2 Flow Rate FiO2 04/30/17 16:04 65 04/30/17 16:00 Nasal Cannula 2.0 04/30/17 15:38 98.1 17 143/68 100 04/27/17 17:23 21 Intake and Output 04/29/17 04/29/17 04/30/17 15:00 23:00 07:00 Intake Total 600 ml 200 ml Output Total 1900 ml 400 ml Balance -1300 ml -200 ml Exam Constitutional: alert Respiratory: clear to auscultation, diminished breath sounds, normal air movement Cardiovascular: nl pulses, regular rate and rhythm Gastrointestinal: non-tender, soft Musculoskeletal: muscle weakness, nl extremities to inspection, swelling Extremities: calf tenderness, normal pulses 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: ENGAGEMENT SPECIALIST II-XII intact, nl mental status, nl speech, nl strength Results Result Diagram: 04/30/17 0816 04/30/17 0555 Results 24 hrs Laboratory Tests Test 04/29/17 17:25 04/29/17 20:44 04/30/17 02:33 04/30/17 05:55 Bedside Glucose 234 H 113 264 H Sodium Level 137 Potassium Level 5.6 H Chloride Level 97 Carbon Dioxide Level 28 Anion Gap 18 H Blood Urea Nitrogen 98 H Creatinine 4.50 H Glucose Level 309 H Calcium Level 8.9 Phosphorus Level 4.3 Magnesium Level 1.8 Test 04/30/17 08:16 04/30/17 08:29 04/30/17 12:08 White Blood Count 14.1 H Red Blood Count 1.90 #L Hemoglobin 10.7 #L Hematocrit 32.1 #L Mean Corpuscular Volume 90.5 Mean Corpuscular Hemoglobin 30.0 Mean Corpuscular Hemoglobin Concent 33.1 Red Cell Distribution Width 16.0 H Platelet Count 219 Mean Platelet Volume 12.7 H Segmented Neutrophils % (Manual) 78 H Lymphocytes % (Manual) 12 L Monocytes % (Manual) 6 Eosinophils % (Manual) 3 Metamyelocytes % (manual) 1 H Absolute Lymphocytes (Manual) 1.6 Absolute Monocytes (Manual) 0.8 Metamyelocytes # 0.1 H Platelet Estimate NORMAL Giant Platelets 2 H Polychromasia 3+ Anisocytosis 2+ Microcytosis 1+ Bedside Glucose 360 H 165 Medications Medications Current Medications Ondansetron HCl (Zofran Tab) 4 mg Q6H PRN PO NAUSEA AND/OR VOMITING; Start at 23:00 Nitroglycerin (Nitroglycerin (Sl Tab) 0.4 Mg) 1 tab Q5M PRN SL CHEST PAIN; Start 04/24/17 at 23:00 Docusate Sodium (Colace) 100 mg Q12H PRN PO CONSTIPATION; Start 04/24/17 at 23 :00 Bisacodyl (Dulcolax) 5 mg DAILY PRN PO CONSTIPATION; Start 04/24/17 at 23:00 Amlodipine Besylate (Norvasc) 5 mg DAILY PO Last administered on 04/30/17 10: 05; Admin Dose 5 MG; Start 04/25/17 at 09:00 Atorvastatin Calcium (Lipitor) 80 mg QHS PO Last administered on 04/29/17 21: 06; Admin Dose 80 MG; Start 04/25/17 at 21:00 Ergocalciferol (Drisdol) 50,000 unit Mo@09 PO Last administered on 04/29/17 17 :21; Admin Dose 50,000 UNIT; Start 04/24/17 at 23:00 Ferrous Sulfate (Ferrous Sulfate (Ec)) 325 mg DAILY PO Last administered on 10:04; Admin Dose 325 MG; Start 04/25/17 at 09:00 Multivit/Ca Carb/ B Cmplx/FA/Prenat (Isabel-Bredna) 1 tab DAILY PO Last administered on 04/30/17 10:05; Admin Dose 1 TAB; Start 04/25/17 at 09:00 Pantoprazole (Protonix Tab) 40 mg DAILY@06 PO Last administered on 04/30/17 06 :00; Admin Dose 40 MG; Start 04/25/17 at 06:00 Guaifenesin/ Dextromethorphan (Mucinex Dm) 1 tab BID PO Last administered on 10:06; Admin Dose 1 TAB; Start 04/25/17 at 03:15 Hydralazine HCl (Apresoline) 10 mg Q4H PRN IV ELEVATED BLOOD PRESSURE Last administered on 04/28/17 07:04; Admin Dose 10 MG; Start 04/25/17 at 03:30 Diagnostic Test (Pha) (Accu-Chek) 1 ea 02 XX Last administered on 04/30/17 02: 00; Admin Dose 1 EA; Start 04/26/17 at 02:00 Citric Acid/ Sodium Citrate (Bicitra) 30 ml TID PO Last administered on 10:04; Admin Dose 30 ML; Start 04/25/17 at 13:00 Aspirin (Aspirin) 81 mg DAILY PO Last administered on 04/30/17 10:05; Admin Dose 81 MG; Start 04/25/17 at 12:00 Heparin Sodium (Porcine) (Heparin (5000 Units/0.5 ml)) 5,000 unit BID SC Last administered on 04/30/17 10:16; Admin Dose 5,000 UNIT; Start 04/26/17 at 09:00 Miscellaneous Information 1 ea NOTE XX ; Start 04/25/17 at 12:00 Glucose (Glutose) 15 gm Q15M PRN PO DECREASED GLUCOSE; Start 04/25/17 at 12:00 Glucose (Glutose) 22.5 gm Q15M PRN PO DECREASED GLUCOSE; Start 04/25/17 at 12: 00 Dextrose (D50w Syringe) 25 ml Q15M PRN IV DECREASED GLUCOSE; Start 04/25/17 at 12:00 Dextrose (D50w Syringe) 50 ml Q15M PRN IV DECREASED GLUCOSE; Start 04/25/17 at 12:00 Glucagon (Glucagen) 1 mg Q15M PRN IM DECREASED GLUCOSE; Start 04/25/17 at 12: 00 Glucose (Glutose) 15 gm Q15M PRN BUCCAL DECREASED GLUCOSE; Start 04/25/17 at 12:00 Furosemide (Lasix) 20 mg BID IV Last administered on 04/30/17 10:06; Admin Dose 20 MG; Start 04/26/17 at 09:00 Fish Oil (Fish Oil) 2,000 mg BID PO Last administered on 04/30/17 10:04; Admin Dose 2,000 MG; Start 04/27/17 at 21:00 EZETIMIBE (Zetia) 10 mg DAILY PO Last administered on 04/30/17 10:05; Admin Dose 10 MG; Start 04/28/17 at 09:00 Metoprolol Succinate (Toprol Xl) 25 mg DAILY PO Last administered on 04/30/17 10:05; Admin Dose 25 MG; Start 04/27/17 at 11:00 Morphine Sulfate (morphine) 2 mg Q4H PRN IV Pain Last administered on 22:51; Admin Dose 2 MG; Start 04/28/17 at 09:00 Linagliptin 5 mg 5 mg DAILY PO Last administered on 04/30/17 10:06; Admin Dose 5 MG; Start 04/28/17 at 12:00 Cefepime HCl/ Dextrose (Maxipime/D5W) 50 ml @ 100 mls/hr Q24H IVPB Last administered on 04/29/17 17:22; Admin Dose 100 MLS/HR; Start 04/29/17 at 13:00 Methylprednisolone Sodium Succinate (Solu-Medrol) 40 mg Q8 IV ; Start 04/30/17 at 14:00 Tiotropium [place] (Spiriva) 1 inh DAILY INH ; Start 04/30/17 at 13:30 Salmeterol Xinafoate/ Fluticasone (Advair 250/50 Diskus) 1 inh BID INH ; Start 04/30/17 at 21:00 Insulin Human NPH (Humulin N) 10 unit Q8 SC ; Start 04/30/17 at 14:00 Insulin Glargine (Lantus) 66 unit QHS SC ; Start 04/30/17 at 21:00 RAQUEL MCDOWELL MD Apr 30, 2017 17:20
[2017-04-30] MEDS: TIOTROPIUM 18 MCG CAPSULE INHA DEV INH SCH (17:40)
[2017-04-30] MEDS: METHYLPREDNISOLONE 40 MG INJ IV SCH ×2 (17:40→22:36)
[2017-04-30] MEDS: NPH, HUMAN INSULIN ISOPHANE 3ML VIAL SC SCH ×2 (17:41→22:37)
[2017-04-30] MEDS ORDERED: INSULIN GLARGINE [LANtus] 3 ML PEN SC SCH (21:00)
[2017-04-30] MEDS: ATORVASTATIN 80 MG TAB PO SCH (21:03)
[2017-04-30] MEDS: SALMETEROL/FLUTICASONE 250/50 INHA INH SCH (21:04)
--- NOTE | 2017-04-30 23:11 | PN ---
Date/Time of Note Date/Time of Note DATE: 04/30/17 TIME: 23:08 Assessment/Plan Lines/Catheters IV Catheter Type (from [facility]): quintoncath w pigtail Pierre in Place (from [facility]): No Assessment/Plan Chief Complaint/Hosp Course -Acute on chronic kidney disease: It seems the patient's renal failure has progressed to possibly end-stage renal, in which the patient requires permanent hemodialysis. As our nephrology colleagues are evaluating the patient at the moment, the patient will require hemodialysis and will require catheter placement. -S/P right CFV Madi catheter -Patient has multiple access options if needed in the coming future. -Continue medical optimization -Optimize vascular status (BP meds, diet, nutrition, exercise, sugar control, antiplatelets). -Bilateral lower extremity atherosclerosis: The patient has no significant ulcerations or gangrene for now. Will plan to follow with the patient's vascular surveillance as an outpatient. -Discussed findings, plan and management with the patient and the family at the bedside and they understand. -Thank you for allowing us to partake in the care of your patient. Please call with any questions. Problems: Subjective 24 Hr Interval Summary no new vascular events overnight, tolerated HD Exam/Review of Systems Vital Signs Vitals Vital Signs Date Time Temp Pulse Resp B/P Pulse Ox O2 Delivery O2 Flow Rate FiO2 04/30/17 20:16 73 04/30/17 19:46 98.0 20 148/63 97 04/30/17 16:00 Nasal Cannula 2.0 04/27/17 17:23 21 Intake and Output 04/29/17 04/29/17 04/30/17 14:59 22:59 06:59 Intake Total 600 ml 200 ml Output Total 1900 ml 400 ml Balance -1300 ml -200 ml Exam Free Text/Dictation GENERAL: Alert and oriented x3; however, he is not able to answer difficult questions. Still difficulty with his breathing; PULMONARY: Bilateral crackles at the bases. CARDIOVASCULAR: S1, S2 present. ABDOMEN: Soft, nontender, nondistended. Bowel sounds positive. Truncal obesity. EXTREMITIES: Right lower extremity palpable femoral pulse, nonpalpable pedal pulse. Motor and sensory intact. Capillary refill 3 seconds. Madi intact and functional Left lower extremity: Palpable femoral pulse, nonpalpable pedal pulse. Motor and sensory intact. Capillary refill 3 seconds. Results Result Diagram: 04/30/17 0816 04/30/17 0555 VANIA PEREYRA MD Apr 30, 2017 23:11
[2017-05-01] VITALS (20 sets, daily range): BP systolic 110–159; BP diastolic 49–78; PULSE 65–94; RESP 17–20
[2017-05-01] MEDS: ALBUTEROL/IPRATROPIUM (NEB) 3 ML AMP HHN SCH ×7 (00:14→20:25)
[2017-05-01] MEDS: morphine 2 MG INJ IV PRN ×2 (01:19→10:24)
[2017-05-01] MEDS: ACCU-CHEK XX SCH (02:07)
[2017-05-01] MEDS: PANTOPRAZOLE (EC) 40 MG TAB PO SCH (05:18)
[2017-05-01] MEDS: METHYLPREDNISOLONE 40 MG INJ IV SCH ×2 (05:18→23:47)
[2017-05-01] MEDS: NPH, HUMAN INSULIN ISOPHANE 3ML VIAL SC SCH ×3 (05:20→22:00)
[2017-05-01] MEDS ORDERED: INSULIN ASPART [NOVOLOG] 3 ML PEN SC ONE (05:30)
[2017-05-01 07:40] LABS: CALCIUM 8.7 mg/dl (8.4-10.2); CREATININE 4.04 mg/dl (0.61-1.24)
[2017-05-01] MEDS: INSULIN ASPART [NOVOLOG] 3 ML PEN SC SCH ×7 (08:09→21:00)
[2017-05-01 08:19] LABS: ABNORMAL IP MESSAGE 1; MEAN CORPUSCULAR HEMOGLOBIN 33.8 pg (29.0-33.0); MEAN PLATELET VOLUME 13.5 fl (7.4-10.4); NUCLEATED RED BLOOD CELLS% 0.4 /100WBC (0.0-0.0); POSITIVE DIFF @See below; RED BLOOD COUNT 1.51 10^6/ul (4.70-6.10); RED CELL DISTRIBUTION WIDTH 20.9 % (11.5-14.5)
[2017-05-01 08:23] LABS: HEMATOCRIT 20.1 % (42.0-52.0); PLATELET COUNT 378 10^3/UL (140-415)
[2017-05-01 08:26] LABS: HEMOGLOBIN 6.7 g/dl (14.0-18.0)
[2017-05-01] MEDS: BUDESONIDE (NEB) 0.5MG/2ML AMP HHN SCH ×2 (08:26→20:00)
[2017-05-01 08:28] LABS: MEAN CORPUSCULAR HGB CONC 34.5 g/dl (32.0-37.0)
[2017-05-01] MEDS: SALMETEROL/FLUTICASONE 250/50 INHA INH SCH ×2 (08:53→23:48)
[2017-05-01] MEDS: TIOTROPIUM 18 MCG CAPSULE INHA DEV INH SCH (08:54)
[2017-05-01] MEDS: FUROSEMIDE 20 MG INJ IV SCH ×2 (08:56→23:26)
[2017-05-01] MEDS: METOPROLOL (XL) 25 MG TAB PO SCH (08:57)
[2017-05-01] MEDS: LINAGLIPTIN 5 MG TABLET PO SCH (08:57)
[2017-05-01] MEDS: FERROUS SULFATE (EC) 325 MG TAB PO SCH (08:57)
[2017-05-01] MEDS: EZETIMIBE 10 MG TAB PO SCH (08:58)
[2017-05-01] MEDS: MULTIVIT/CA CARB/B CMPLX/FA TAB PO SCH (08:58)
[2017-05-01] MEDS: AMLODIPINE 5 MG TAB PO SCH (08:58)
[2017-05-01] MEDS: ASPIRIN 81 MG TAB PO SCH (09:00)
[2017-05-01] MEDS: HEPARIN 5,000 UNIT/0.5 ML VIAL SC SCH ×2 (09:00→23:28)
[2017-05-01] MEDS: FISH OIL 1,000 MG CAP PO SCH ×2 (09:01→23:24)
[2017-05-01] MEDS: CITRIC ACID/SODIUM CITRATE 15 ML CUP PO SCH ×3 (09:04→23:27)
[2017-05-01] MEDS ORDERED: INSULIN GLARGINE [LANtus] 3 ML PEN SC ONE (09:30)
--- NOTE | 2017-05-01 09:48 | CONS ---
Date/Time of Note Date/Time of Note DATE: 05/01/17 TIME: 09:45 Assessment/Plan Assessment/Plan Chief Complaint/Hosp Course Consultation dictated #[id number]. Patient with COPD exacerbation and some element of noncardiogenic pulmonary edema. Patient would benefit from a trial of Pulmicort 0.5 mg twice daily via nebulizer as well as Solu-Medrol 40 mg IV every 8 hours at least for 3 doses. Will monitor blood sugars. Problems: Additional Assessment/Plan Assessment and recommendations; 1. Patient admitted with mild pulmonary edema with COPD exacerbation with interval improvement. 2. End-stage renal disease, on hemodialysis. 3. Anemia. 4. Diabetes. With hyperglycemia secondary to systemic steroids. 5. History of DVT. 6. History of hypertension. Continue current treatment. Transfused packed RBC during dialysis. Decrease Solu-Medrol to 40 mg every 12 hours for at least 2 more doses. Continue Pulmicort and other bronchodilator regimen. Patient responding well to current treatment regimen. Consultation Date/Type/Reason Admit Date/Time Apr 24, 2017 at 19:05 Initial Consult Date 04/30/17 Type of Consultation: Pulmonary Referring Provider: NANY PRIEST SECURITY CLERK 24 HR Interval Summary Free Text/Dictation Patient's condition is stable. Reports significant reduction in shortness of breath. Denies any coughing or wheezing. General exam; elderly male, awake alert, currently in no distress. Exam/Review of Systems Vital Signs Vitals Vital Signs Date Time Temp Pulse Resp B/P Pulse Ox O2 Delivery O2 Flow Rate FiO2 05/01/17 08:37 101 20 100 Nasal Cannula 4.0 05/01/17 08:20 97.5 141/65 04/27/17 17:23 21 Intake and Output 04/30/17 04/30/17 05/01/17 15:00 23:00 07:00 Intake Total 1300 ml 950 ml 240 ml Output Total 2600 ml 1000 ml 250 ml Balance -1300 ml -50 ml -10 ml Exam HEENT exam; supple neck, no JVD. No lymphadenopathy. Midline trachea. No thyromegaly. Patient is edentulous and wears dentures. Chest exam; diminished but clear breath sounds. No added sounds. S1-S2 audible , no murmurs. Regular rhythm. Abdomen exam; soft, protuberant. Nontender. No organomegaly. Bowel sounds audible. Extremity exam; no edema. CARDIOVASCULAR SURGEON exam; no deficit. Results Result Diagram: 05/01/17 0645 05/01/17 0645 Results 24 hrs Laboratory Tests Test 04/30/17 12:08 04/30/17 17:38 04/30/17 19:23 04/30/17 20:57 Bedside Glucose 165 56 L 114 199 Test 04/30/17 22:13 05/01/17 02:05 05/01/17 05:16 05/01/17 06:45 Bedside Glucose 264 H 328 H 342 H White Blood Count 17.0 #H Red Blood Count 1.51 #L Hemoglobin 6.7 #*L Hematocrit 20.1 #L Mean Corpuscular Volume 98.0 Mean Corpuscular Hemoglobin 33.8 H Mean Corpuscular Hemoglobin Concent 34.5 Red Cell Distribution Width 20.9 #H Platelet Count 378 Mean Platelet Volume 13.5 H Neutrophils % Lymphocytes % Monocytes % Eosinophils % Basophils % Nucleated Red Blood Cells % 0.4 H Neutrophils # Lymphocytes # Monocytes # Eosinophils # Basophils # Nucleated Red Blood Cells # Sodium Level 135 Potassium Level 5.0 Chloride Level 93 L Carbon Dioxide Level 28 Anion Gap 19 H Blood Urea Nitrogen 85 H Creatinine 4.04 H Glucose Level 321 H Calcium Level 8.7 Test 05/01/17 08:02 Bedside Glucose 311 H Medications Medications Current Medications Ondansetron HCl (Zofran Tab) 4 mg Q6H PRN PO NAUSEA AND/OR VOMITING; Start at 23:00 Nitroglycerin (Nitroglycerin (Sl Tab) 0.4 Mg) 1 tab Q5M PRN SL CHEST PAIN; Start 04/24/17 at 23:00 Docusate Sodium (Colace) 100 mg Q12H PRN PO CONSTIPATION; Start 04/24/17 at 23 :00 Bisacodyl (Dulcolax) 5 mg DAILY PRN PO CONSTIPATION; Start 04/24/17 at 23:00 Amlodipine Besylate (Norvasc) 5 mg DAILY PO Last administered on 05/01/17 08: 58; Admin Dose 5 MG; Start 04/25/17 at 09:00 Atorvastatin Calcium (Lipitor) 80 mg QHS PO Last administered on 04/30/17 21: 03; Admin Dose 80 MG; Start 04/25/17 at 21:00 Ergocalciferol (Drisdol) 50,000 unit Mo@09 PO Last administered on 04/29/17 17 :21; Admin Dose 50,000 UNIT; Start 04/24/17 at 23:00 Ferrous Sulfate (Ferrous Sulfate (Ec)) 325 mg DAILY PO Last administered on 08:57; Admin Dose 325 MG; Start 04/25/17 at 09:00 Multivit/Ca Carb/ B Cmplx/FA/Prenat (Isabel-Brenda) 1 tab DAILY PO Last administered on 05/01/17 08:58; Admin Dose 1 TAB; Start 04/25/17 at 09:00 Pantoprazole (Protonix Tab) 40 mg DAILY@06 PO Last administered on 05/01/17 05 :18; Admin Dose 40 MG; Start 04/25/17 at 06:00 Guaifenesin/ Dextromethorphan (Mucinex Dm) 1 tab BID PO Last administered on 21:05; Admin Dose 1 TAB; Start 04/25/17 at 03:15 Hydralazine HCl (Apresoline) 10 mg Q4H PRN IV ELEVATED BLOOD PRESSURE Last administered on 04/28/17 07:04; Admin Dose 10 MG; Start 04/25/17 at 03:30 Diagnostic Test (Pha) (Accu-Chek) 1 ea 02 XX Last administered on 05/01/17 02: 07; Admin Dose 1 EA; Start 04/26/17 at 02:00 Citric Acid/ Sodium Citrate (Bicitra) 30 ml TID PO Last administered on 09:04; Admin Dose 30 ML; Start 04/25/17 at 13:00 Aspirin (Aspirin) 81 mg DAILY PO Last administered on 04/30/17 10:05; Admin Dose 81 MG; Start 04/25/17 at 12:00 Heparin Sodium (Porcine) (Heparin (5000 Units/0.5 ml)) 5,000 unit BID SC Last administered on 04/30/17 21:08; Admin Dose 5,000 UNIT; Start 04/26/17 at 09:00 Miscellaneous Information 1 ea NOTE XX Last administered on 04/30/17 17:45; Admin Dose 1 EA; Start 04/25/17 at 12:00 Glucose (Glutose) 15 gm Q15M PRN PO DECREASED GLUCOSE; Start 04/25/17 at 12:00 Glucose (Glutose) 22.5 gm Q15M PRN PO DECREASED GLUCOSE; Start 04/25/17 at 12: 00 Dextrose (D50w Syringe) 25 ml Q15M PRN IV DECREASED GLUCOSE; Start 04/25/17 at 12:00 Dextrose (D50w Syringe) 50 ml Q15M PRN IV DECREASED GLUCOSE; Start 04/25/17 at 12:00 Glucagon (Glucagen) 1 mg Q15M PRN IM DECREASED GLUCOSE; Start 04/25/17 at 12: 00 Glucose (Glutose) 15 gm Q15M PRN BUCCAL DECREASED GLUCOSE; Start 04/25/17 at 12:00 Furosemide (Lasix) 20 mg BID IV Last administered on 04/30/17 21:04; Admin Dose 20 MG; Start 04/26/17 at 09:00 Fish Oil (Fish Oil) 2,000 mg BID PO Last administered on 05/01/17 09:01; Admin Dose 2,000 MG; Start 04/27/17 at 21:00 EZETIMIBE (Zetia) 10 mg DAILY PO Last administered on 05/01/17 08:58; Admin Dose 10 MG; Start 04/28/17 at 09:00 Metoprolol Succinate (Toprol Xl) 25 mg DAILY PO Last administered on 05/01/17 08:57; Admin Dose 25 MG; Start 04/27/17 at 11:00 Morphine Sulfate (morphine) 2 mg Q4H PRN IV Pain Last administered on 01:19; Admin Dose 2 MG; Start 04/28/17 at 09:00 Linagliptin 5 mg 5 mg DAILY PO Last administered on 05/01/17 08:57; Admin Dose 5 MG; Start 04/28/17 at 12:00 Cefepime HCl/ Dextrose (Maxipime/D5W) 50 ml @ 100 mls/hr Q24H IVPB Last administered on 04/29/17 17:22; Admin Dose 100 MLS/HR; Start 04/29/17 at 13:00 Methylprednisolone Sodium Succinate (Solu-Medrol) 40 mg Q8 IV Last administered on 05/01/17 05:18; Admin Dose 40 MG; Start 04/30/17 at 14:00 Tiotropium [place] (Spiriva) 1 inh DAILY INH Last administered on 05/01/17 08: 54; Admin Dose 1 INH; Start 04/30/17 at 13:30 Salmeterol Xinafoate/ Fluticasone (Advair 250/50 Diskus) 1 inh BID INH Last administered on 05/01/17 08:53; Admin Dose 1 INH; Start 04/30/17 at 21:00 Insulin Human NPH (Humulin N) 10 unit Q8 SC Last administered on 05/01/17 05: 20; Admin Dose 10 UNIT; Start 04/30/17 at 14:00 Insulin Glargine (Lantus) 40 unit BID SC ; Start 05/01/17 at 21:00 MICH SAMANO May 01, 2017 09:48
[2017-05-01 10:54] LABS: ANISOCYTOSIS 2+ (0-0); EOSINOPHILS % (M) 5 % (0-7); ERYTHROBLAST% (NRBC) (M) 1 % (0-0); MICROCYTOSIS 1+ (0-0); MONOCYTES % (M) 2 % (0-11); PLATELET ESTIMATE NORMAL; POIKILOCYTOSIS 1+ (0-0); POLYCHROMASIA 3+ (0-0)
[2017-05-01 10:57] LABS: PATH REVIEW? YES
[2017-05-01] MEDS: GUAIFENESIN/DM (SR) TAB PO SCH ×2 (12:06→23:25)
[2017-05-01] MEDS ORDERED: HEPARIN 1000 UNITS/ML 10 ML INJ CATHETER SCH (12:30)
[2017-05-01] MEDS ORDERED: ALTEPLASE (CATHFLO) 2 MG INJ CATHETER ONE (12:30)
[2017-05-01 12:52] LABS: ABNORMAL IP MESSAGE 1; HEMATOCRIT 15.9 % (42.0-52.0); MEAN CORPUSCULAR HEMOGLOBIN 29.7 pg (29.0-33.0); MEAN CORPUSCULAR VOLUME 90.9 fl (82.0-101.0); NUCLEATED RED BLOOD CELLS% 0.8 /100WBC (0.0-0.0); POSITIVE DIFF @See below; RED BLOOD COUNT 1.75 10^6/ul (4.70-6.10); RED CELL DISTRIBUTION WIDTH 17.3 % (11.5-14.5)
[2017-05-01 12:56] LABS: WHITE BLOOD COUNT 25.6 10^3/ul (4.8-10.8)
[2017-05-01 12:57] LABS: PLATELET COUNT 286 10^3/UL (140-415)
[2017-05-01 13:01] LABS: HEMOGLOBIN 5.2 g/dl (14.0-18.0)
[2017-05-01] MEDS ORDERED: SOD CHLORIDE 0.9% 250 ML IV* ONE (13:05)
[2017-05-01 13:07] LABS: HEMOGLOBIN 5.7 g/dl (14.0-18.0)
[2017-05-01 13:07] LABS: MEAN CORPUSCULAR HGB CONC 32.7 g/dl (32.0-37.0)
[2017-05-01 13:08] LABS: HEMATOCRIT 17.2 % (42.0-52.0)
--- NOTE | 2017-05-01 13:37 | PN ---
Date/Time of Note Date/Time of Note DATE: 05/01/17 TIME: 13:30 Assessment/Plan VTE Prophylaxis VTE Prophylaxis Intervention: SCD's Lines/Catheters IV C[facility]ter [facility]from [facility]): JAMIL CATH Urinary Cath still in place: No Assessment/Plan Chief Complaint/Hosp Course Assessment and plan 1. Acute respiratory failure. Secondary to fluid overload. Continue on breathing tx and oxygen. Titrate down as tolerated. Tentative plan for dialysis for fluid removal. 2. Non-ST elevated myocardial infarction suspect type II event considering underlying worsening renal function. Continue on antiplatelet therapy. Blade Grinder following. Continue recommendations. 3. Gram-positive bacteremia. Suspect contaminant. ID consult is following. Antibiotic regimen per ID consult. noted with elevating wbc today 4. Acute on chronic CHF with diastolic dysfunction. Continue on cardiovascular medications. Plan for dialysis 5. Pulmonary hypertension. Noted with PA systolic pressure of 44 mmHg. Continue on O2. 6. CAD. Patient is status post PTCA in the past. Continue on antiplatelet therapy. 7. Metabolic acidosis secondary to worsening renal function. Continue on Bicitra per hydraulic modeling engineer. 8. Dyslipidemia. Continue on statin medication. 9. Diabetes. Continue on insulin regimen. Adjust as needed. 10. Essential hypertension continue antihypertensives and adjust needed. 11. Left popliteal vein DVT. Patient did have prior history of DVT in the lower extremities and was taking Xarelto at home. Discontinued now due to worsening renal function. Follow-up with vascular surgeon noy. 12. Acute on chronic kidney disease. With worsening renal function. Plan for dialysis. Plan for dialysis cath placement today. Disposition and plan: Plan for transfusion of PRBC 2 today. Monitor trend. GI consult to follow. Discussed plan of care with Dr. York Problems: Subjective 24 Hr Interval Summary Free Text/Dictation reports feeling general weakness Exam/Review of Systems Vital Signs Vitals Vital Signs Date Time Temp Pulse Resp B/P Pulse Ox O2 Delivery O2 Flow Rate FiO2 05/01/17 12:55 92 24 93 Nasal Cannula 4.0 05/01/17 11:13 98.3 135/63 04/27/17 17:23 21 Intake and Output 04/30/17 04/30/17 05/01/17 15:00 23:00 07:00 Intake Total 1300 ml 950 ml 240 ml Output Total 2600 ml 1000 ml 250 ml Balance -1300 ml -50 ml -10 ml Exam Constitutional: alert, oriented Head: normocephalic Eyes: nl conjunctiva Neck: non-tender, supple Respiratory: other (Diminished and still congested Cardiovascular: other (Regular rate) Musculoskeletal: swelling (Bilateral lower extremities) 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: SURGERY SCHEDULER II-XII intact, nl mental status, nl speech Results Result Diagram: 05/01/17 1115 05/01/17 0645 Results 24 hrs Laboratory Tests Test 04/30/17 17:38 04/30/17 19:23 04/30/17 20:57 04/30/17 22:13 Bedside Glucose 56 L 114 199 264 H Test 05/01/17 02:05 05/01/17 05:16 05/01/17 06:45 05/01/17 08:02 Bedside Glucose 328 H 342 H 311 H White Blood Count 17.0 #H Red Blood Count 1.51 #L Hemoglobin 6.7 *L Hematocrit 20.1 L Mean Corpuscular Volume 98.0 Mean Corpuscular Hemoglobin 33.8 H Mean Corpuscular Hemoglobin Concent 34.5 Red Cell Distribution Width 20.9 #H Platelet Count 378 Mean Platelet Volume 13.5 H Neutrophils % Segmented Neutrophils % (Manual) 87 H Lymphocytes % Lymphocytes % (Manual) 6 L Monocytes % Monocytes % (Manual) 2 Eosinophils % Eosinophils % (Manual) 5 Basophils % Nucleated Red Blood Cells % 1 H Neutrophils # Absolute Lymphocytes (Manual) 1.0 Lymphocytes # Monocytes # Absolute Monocytes (Manual) 0.3 Eosinophils # Basophils # Nucleated Red Blood Cells # Pathologist Review (Hematology) YES Platelet Estimate NORMAL Polychromasia 3+ Poikilocytosis 1+ Anisocytosis 2+ Microcytosis 1+ Macrocytosis 1+ Sodium Level 135 Potassium Level 5.0 Chloride Level 93 L Carbon Dioxide Level 28 Anion Gap 19 H Blood Urea Nitrogen 85 H Creatinine 4.04 H Glucose Level 321 H Calcium Level 8.7 Test 05/01/17 11:15 05/01/17 11:53 White Blood Count 25.6 #H Red Blood Count 1.75 L Hemoglobin 5.2 #*L Hematocrit 15.9 #L Mean Corpuscular Volume 90.9 Mean Corpuscular Hemoglobin 29.7 Mean Corpuscular Hemoglobin Concent 32.7 Red Cell Distribution Width 17.3 H Platelet Count 286 # Mean Platelet Volume 13.0 H Neutrophils % Lymphocytes % Monocytes % Eosinophils % Basophils % Nucleated Red Blood Cells % 0.8 H Neutrophils # Lymphocytes # Monocytes # Eosinophils # Basophils # Nucleated Red Blood Cells # Bedside Glucose 185 Medications Medications Current Medications Ondansetron HCl (Zofran Tab) 4 mg Q6H PRN PO NAUSEA AND/OR VOMITING; Start at 23:00 Nitroglycerin (Nitroglycerin (Sl Tab) 0.4 Mg) 1 tab Q5M PRN SL CHEST PAIN; Start 04/24/17 at 23:00 Docusate Sodium (Colace) 100 mg Q12H PRN PO CONSTIPATION; Start 04/24/17 at 23 :00 Bisacodyl (Dulcolax) 5 mg DAILY PRN PO CONSTIPATION; Start 04/24/17 at 23:00 Amlodipine Besylate (Norvasc) 5 mg DAILY PO Last administered on 05/01/17 08: 58; Admin Dose 5 MG; Start 04/25/17 at 09:00 Atorvastatin Calcium (Lipitor) 80 mg QHS PO Last administered on 04/30/17 21: 03; Admin Dose 80 MG; Start 04/25/17 at 21:00 Ergocalciferol (Drisdol) 50,000 unit Mo@09 PO Last administered on 04/29/17 17 :21; Admin Dose 50,000 UNIT; Start 04/24/17 at 23:00 Ferrous Sulfate (Ferrous Sulfate (Ec)) 325 mg DAILY PO Last administered on 08:57; Admin Dose 325 MG; Start 04/25/17 at 09:00 Multivit/Ca Carb/ B Cmplx/FA/Prenat (Isabel-Brenda) 1 tab DAILY PO Last administered on 05/01/17 08:58; Admin Dose 1 TAB; Start 04/25/17 at 09:00 Pantoprazole (Protonix Tab) 40 mg DAILY@06 PO Last administered on 05/01/17 05 :18; Admin Dose 40 MG; Start 04/25/17 at 06:00 Guaifenesin/ Dextromethorphan (Mucinex Dm) 1 tab BID PO Last administered on 12:06; Admin Dose 1 TAB; Start 04/25/17 at 03:15 Hydralazine HCl (Apresoline) 10 mg Q4H PRN IV ELEVATED BLOOD PRESSURE Last administered on 04/28/17 07:04; Admin Dose 10 MG; Start 04/25/17 at 03:30 Diagnostic Test (Pha) (Accu-Chek) 1 ea 02 XX Last administered on 05/01/17 02: 07; Admin Dose 1 EA; Start 04/26/17 at 02:00 Citric Acid/ Sodium Citrate (Bicitra) 30 ml TID PO Last administered on 09:04; Admin Dose 30 ML; Start 04/25/17 at 13:00 Aspirin (Aspirin) 81 mg DAILY PO Last administered on 04/30/17 10:05; Admin Dose 81 MG; Start 04/25/17 at 12:00 Heparin Sodium (Porcine) (Heparin (5000 Units/0.5 ml)) 5,000 unit BID SC Last administered on 04/30/17 21:08; Admin Dose 5,000 UNIT; Start 04/26/17 at 09:00 Miscellaneous Information 1 ea NOTE XX Last administered on 04/30/17 17:45; Admin Dose 1 EA; Start 04/25/17 at 12:00 Glucose (Glutose) 15 gm Q15M PRN PO DECREASED GLUCOSE; Start 04/25/17 at 12:00 Glucose (Glutose) 22.5 gm Q15M PRN PO DECREASED GLUCOSE; Start 04/25/17 at 12: 00 Dextrose (D50w Syringe) 25 ml Q15M PRN IV DECREASED GLUCOSE; Start 04/25/17 at 12:00 Dextrose (D50w Syringe) 50 ml Q15M PRN IV DECREASED GLUCOSE; Start 04/25/17 at 12:00 Glucagon (Glucagen) 1 mg Q15M PRN IM DECREASED GLUCOSE; Start 04/25/17 at 12: 00 Glucose (Glutose) 15 gm Q15M PRN BUCCAL DECREASED GLUCOSE; Start 04/25/17 at 12:00 Furosemide (Lasix) 20 mg BID IV Last administered on 04/30/17 21:04; Admin Dose 20 MG; Start 04/26/17 at 09:00 Fish Oil (Fish Oil) 2,000 mg BID PO Last administered on 05/01/17 09:01; Admin Dose 2,000 MG; Start 04/27/17 at 21:00 EZETIMIBE (Zetia) 10 mg DAILY PO Last administered on 05/01/17 08:58; Admin Dose 10 MG; Start 04/28/17 at 09:00 Metoprolol Succinate (Toprol Xl) 25 mg DAILY PO Last administered on 05/01/17 08:57; Admin Dose 25 MG; Start 04/27/17 at 11:00 Morphine Sulfate (morphine) 2 mg Q4H PRN IV Pain Last administered on 10:24; Admin Dose 2 MG; Start 04/28/17 at 09:00 Linagliptin 5 mg 5 mg DAILY PO Last administered on 05/01/17 08:57; Admin Dose 5 MG; Start 04/28/17 at 12:00 Cefepime HCl/ Dextrose (Maxipime/D5W) 50 ml @ 100 mls/hr Q24H IVPB Last administered on 04/29/17 17:22; Admin Dose 100 MLS/HR; Start 04/29/17 at 13:00 Tiotropium [place] (Spiriva) 1 inh DAILY INH Last administered on 05/01/17 08: 54; Admin Dose 1 INH; Start 04/30/17 at 13:30 Salmeterol Xinafoate/ Fluticasone (Advair 250/50 Diskus) 1 inh BID INH Last administered on 05/01/17 08:53; Admin Dose 1 INH; Start 04/30/17 at 21:00 Insulin Glargine (Lantus) 40 unit BID SC ; Start 05/01/17 at 21:00 Methylprednisolone Sodium Succinate (Solu-Medrol) 40 mg Q12 IV ; Start 05/01/17 at 21:00 Insulin Human NPH (Humulin N) 12 unit Q8 SC ; Start 05/01/17 at 14:00 PERRY JUAREZ May 01, 2017 13:37
--- NOTE | 2017-05-01 14:07 | CONS ---
Date/Time of Note Date/Time of Note DATE: 05/01/17 TIME: 14:04 Assessment/Plan Assessment/Plan Chief Complaint/Hosp Course SUBJECTIVE: No acute changes. The patient is awake, looks comfortable, no fevers. HD not done 2 to catheter malfunction ANTIMICROBIALS: Cefepime. PHYSICAL EXAMINATION: GENERAL: This is a fragile well-developed elderly man who is awake, in no distress. HEENT: Head atraumatic, normocephalic. Sclerae anicteric. Buccal mucosa dry. NECK: Supple. CHEST: Rise symmetrical. Breath sounds with scattered crackles and expiratory wheezes. HEART: S1, S2. ABDOMEN: Soft, bowel tones present. EXTREMITIES: Without cyanosis. ASSESSMENT: 1. Systemic inflammatory response syndrome with ongoing leukocytosis, started on steroids yesterday. 2. Acute chronic obstructive pulmonary disease exacerbation. 3. Pulmonary edema. 4. End-stage renal disease, now on hemodialysis. 5. Diabetes. 6. History of coronary artery bypass graft. 7. Hypertension. PLAN: The patient remains stable, will dc abx after today's dose. Continue present care, pulmonary/card/renal rec-s DW at bedside DW staff Problems: Consultation Date/Type/Reason Admit Date/Time Apr 24, 2017 at 19:05 Initial Consult Date 04/27/17 Type of Consultation: id Referring Provider: NANY PRIEST MAINTENANCE DIRECTOR Exam/Review of Systems Vital Signs Vitals Vital Signs Date Time Temp Pulse Resp B/P Pulse Ox O2 Delivery O2 Flow Rate FiO2 05/01/17 12:55 92 24 93 Nasal Cannula 4.0 05/01/17 11:13 98.3 135/63 04/27/17 17:23 21 Intake and Output 04/30/17 04/30/17 05/01/17 15:00 23:00 07:00 Intake Total 1300 ml 950 ml 240 ml Output Total 2600 ml 1000 ml 250 ml Balance -1300 ml -50 ml -10 ml Results Result Diagram: 05/01/17 1115 05/01/17 0645 Results 24 hrs Laboratory Tests Test 04/30/17 17:38 04/30/17 19:23 04/30/17 20:57 04/30/17 22:13 Bedside Glucose 56 L 114 199 264 H Test 05/01/17 02:05 05/01/17 05:16 05/01/17 06:45 05/01/17 08:02 Bedside Glucose 328 H 342 H 311 H White Blood Count 17.0 #H Red Blood Count 1.51 #L Hemoglobin 6.7 *L Hematocrit 20.1 L Mean Corpuscular Volume 98.0 Mean Corpuscular Hemoglobin 33.8 H Mean Corpuscular Hemoglobin Concent 34.5 Red Cell Distribution Width 20.9 #H Platelet Count 378 Mean Platelet Volume 13.5 H Neutrophils % Segmented Neutrophils % (Manual) 87 H Lymphocytes % Lymphocytes % (Manual) 6 L Monocytes % Monocytes % (Manual) 2 Eosinophils % Eosinophils % (Manual) 5 Basophils % Nucleated Red Blood Cells % 1 H Neutrophils # Absolute Lymphocytes (Manual) 1.0 Lymphocytes # Monocytes # Absolute Monocytes (Manual) 0.3 Eosinophils # Basophils # Nucleated Red Blood Cells # Pathologist Review (Hematology) YES Platelet Estimate NORMAL Polychromasia 3+ Poikilocytosis 1+ Anisocytosis 2+ Microcytosis 1+ Macrocytosis 1+ Sodium Level 135 Potassium Level 5.0 Chloride Level 93 L Carbon Dioxide Level 28 Anion Gap 19 H Blood Urea Nitrogen 85 H Creatinine 4.04 H Glucose Level 321 H Calcium Level 8.7 Test 05/01/17 11:15 05/01/17 11:53 White Blood Count 25.6 #H Red Blood Count 1.75 L Hemoglobin 5.2 #*L Hematocrit 15.9 #L Mean Corpuscular Volume 90.9 Mean Corpuscular Hemoglobin 29.7 Mean Corpuscular Hemoglobin Concent 32.7 Red Cell Distribution Width 17.3 H Platelet Count 286 # Mean Platelet Volume 13.0 H Neutrophils % Lymphocytes % Monocytes % Eosinophils % Basophils % Nucleated Red Blood Cells % 0.8 H Neutrophils # Lymphocytes # Monocytes # Eosinophils # Basophils # Nucleated Red Blood Cells # Bedside Glucose 185 Medications Medications Current Medications Ondansetron HCl (Zofran Tab) 4 mg Q6H PRN PO NAUSEA AND/OR VOMITING; Start at 23:00 Nitroglycerin (Nitroglycerin (Sl Tab) 0.4 Mg) 1 tab Q5M PRN SL CHEST PAIN; Start 04/24/17 at 23:00 Docusate Sodium (Colace) 100 mg Q12H PRN PO CONSTIPATION; Start 04/24/17 at 23 :00 Bisacodyl (Dulcolax) 5 mg DAILY PRN PO CONSTIPATION; Start 04/24/17 at 23:00 Amlodipine Besylate (Norvasc) 5 mg DAILY PO Last administered on 05/01/17 08: 58; Admin Dose 5 MG; Start 04/25/17 at 09:00 Atorvastatin Calcium (Lipitor) 80 mg QHS PO Last administered on 04/30/17 21: 03; Admin Dose 80 MG; Start 04/25/17 at 21:00 Ergocalciferol (Drisdol) 50,000 unit Mo@09 PO Last administered on 04/29/17 17 :21; Admin Dose 50,000 UNIT; Start 04/24/17 at 23:00 Ferrous Sulfate (Ferrous Sulfate (Ec)) 325 mg DAILY PO Last administered on 08:57; Admin Dose 325 MG; Start 04/25/17 at 09:00 Multivit/Ca Carb/ B Cmplx/FA/Prenat (Isabel-Brenda) 1 tab DAILY PO Last administered on 05/01/17 08:58; Admin Dose 1 TAB; Start 04/25/17 at 09:00 Pantoprazole (Protonix Tab) 40 mg DAILY@06 PO Last administered on 05/01/17 05 :18; Admin Dose 40 MG; Start 04/25/17 at 06:00 Guaifenesin/ Dextromethorphan (Mucinex Dm) 1 tab BID PO Last administered on 12:06; Admin Dose 1 TAB; Start 04/25/17 at 03:15 Hydralazine HCl (Apresoline) 10 mg Q4H PRN IV ELEVATED BLOOD PRESSURE Last administered on 04/28/17 07:04; Admin Dose 10 MG; Start 04/25/17 at 03:30 Diagnostic Test (Pha) (Accu-Chek) 1 ea 02 XX Last administered on 05/01/17 02: 07; Admin Dose 1 EA; Start 04/26/17 at 02:00 Citric Acid/ Sodium Citrate (Bicitra) 30 ml TID PO Last administered on 09:04; Admin Dose 30 ML; Start 04/25/17 at 13:00 Aspirin (Aspirin) 81 mg DAILY PO Last administered on 04/30/17 10:05; Admin Dose 81 MG; Start 04/25/17 at 12:00 Heparin Sodium (Porcine) (Heparin (5000 Units/0.5 ml)) 5,000 unit BID SC Last administered on 04/30/17 21:08; Admin Dose 5,000 UNIT; Start 04/26/17 at 09:00 Miscellaneous Information 1 ea NOTE XX Last administered on 04/30/17 17:45; Admin Dose 1 EA; Start 04/25/17 at 12:00 Glucose (Glutose) 15 gm Q15M PRN PO DECREASED GLUCOSE; Start 04/25/17 at 12:00 Glucose (Glutose) 22.5 gm Q15M PRN PO DECREASED GLUCOSE; Start 04/25/17 at 12: 00 Dextrose (D50w Syringe) 25 ml Q15M PRN IV DECREASED GLUCOSE; Start 04/25/17 at 12:00 Dextrose (D50w Syringe) 50 ml Q15M PRN IV DECREASED GLUCOSE; Start 04/25/17 at 12:00 Glucagon (Glucagen) 1 mg Q15M PRN IM DECREASED GLUCOSE; Start 04/25/17 at 12: 00 Glucose (Glutose) 15 gm Q15M PRN BUCCAL DECREASED GLUCOSE; Start 04/25/17 at 12:00 Furosemide (Lasix) 20 mg BID IV Last administered on 04/30/17 21:04; Admin Dose 20 MG; Start 04/26/17 at 09:00 Fish Oil (Fish Oil) 2,000 mg BID PO Last administered on 05/01/17 09:01; Admin Dose 2,000 MG; Start 04/27/17 at 21:00 EZETIMIBE (Zetia) 10 mg DAILY PO Last administered on 05/01/17 08:58; Admin Dose 10 MG; Start 04/28/17 at 09:00 Metoprolol Succinate (Toprol Xl) 25 mg DAILY PO Last administered on 05/01/17 08:57; Admin Dose 25 MG; Start 04/27/17 at 11:00 Morphine Sulfate (morphine) 2 mg Q4H PRN IV Pain Last administered on 10:24; Admin Dose 2 MG; Start 04/28/17 at 09:00 Linagliptin 5 mg 5 mg DAILY PO Last administered on 05/01/17 08:57; Admin Dose 5 MG; Start 04/28/17 at 12:00 Cefepime HCl/ Dextrose (Maxipime/D5W) 50 ml @ 100 mls/hr Q24H IVPB Last administered on 04/29/17 17:22; Admin Dose 100 MLS/HR; Start 04/29/17 at 13:00 Tiotropium [place] (Spiriva) 1 inh DAILY INH Last administered on 05/01/17 08: 54; Admin Dose 1 INH; Start 04/30/17 at 13:30 Salmeterol Xinafoate/ Fluticasone (Advair 250/50 Diskus) 1 inh BID INH Last administered on 05/01/17 08:53; Admin Dose 1 INH; Start 04/30/17 at 21:00 Insulin Glargine (Lantus) 40 unit BID SC ; Start 05/01/17 at 21:00 Methylprednisolone Sodium Succinate (Solu-Medrol) 40 mg Q12 IV ; Start 05/01/17 at 21:00 Insulin Human NPH (Humulin N) 12 unit Q8 SC ; Start 05/01/17 at 14:00 MARIELA BANGURA NP May 01, 2017 14:07
[2017-05-01 14:27] LABS: ANISOCYTOSIS 2+ (0-0); ERYTHROBLAST% (NRBC) (M) 2 % (0-0); GIANT THROMBO% (M) 1 % (0-0); HYPOCHROMASIA 1+ (0-0); MONOCYTES % (M) 5 % (0-11); PLATELET ESTIMATE NORMAL; POIKILOCYTOSIS 2+ (0-0); POLYCHROMASIA 2+ (0-0); REACTIVE LYMPHOCYTES% (M) 1 % (0-0)
--- NOTE | 2017-05-01 15:10 | CONS ---
Date/Time of Note Date/Time of Note DATE: 05/01/17 TIME: 15:08 Assessment/Plan Assessment/Plan Additional Assessment/Plan Volume overload Acute kidney injury with history of CKD, started on hemodialysis Acute decompensated diastolic congestive heart failure Diabetes CAD with history of PCI over 10 years ago Hypertension Dyslipidemia History of DVT, previously on anticoagulation Acute blood loss anemia -Patient is beginning hemodialysis session currently. Plan for blood transfusion today given worsening hemoglobin. Telemetry with episodes of Mobitz type I and denies symptoms of dizziness. Continue on telemetry monitoring. Anticoagulation on hold secondary to worsening anemia and requiring blood transfusion. Would hold aspirin at the current time as well. Continue statin therapy. Consultation Date/Type/Reason Admit Date/Time Apr 24, 2017 at 19:05 Initial Consult Date 04/27/17 Type of Consultation: cv Referring Provider: NANY PRIEST NP 24 HR Interval Summary Free Text/Dictation Patient with increased fatigue today, still with episodes of shortness of breath. Denies chest pain Exam/Review of Systems Vital Signs Vitals Vital Signs Date Time Temp Pulse Resp B/P Pulse Ox O2 Delivery O2 Flow Rate FiO2 05/01/17 12:55 92 24 93 Nasal Cannula 4.0 05/01/17 11:13 98.3 135/63 04/27/17 17:23 21 Intake and Output 04/30/17 04/30/17 05/01/17 14:59 22:59 06:59 Intake Total 1300 ml 950 ml 240 ml Output Total 2600 ml 1000 ml 250 ml Balance -1300 ml -50 ml -10 ml Exam Being initiated on hemodialysis Constitutional: alert, oriented Head: normocephalic Respiratory: other (Coarse breath sounds bilaterally, no wheezing) Cardiovascular: other (S1-S2 heard), regular rate and rhythm Gastrointestinal: bowel sounds, non-tender, soft Extremities: edema Results Result Diagram: 05/01/17 1115 05/01/17 0645 Results 24 hrs Laboratory Tests Test 04/30/17 17:38 04/30/17 19:23 04/30/17 20:57 04/30/17 22:13 Bedside Glucose 56 L 114 199 264 H Test 05/01/17 02:05 05/01/17 05:16 05/01/17 06:45 05/01/17 08:02 Bedside Glucose 328 H 342 H 311 H White Blood Count 17.0 #H Red Blood Count 1.51 #L Hemoglobin 6.7 *L Hematocrit 20.1 L Mean Corpuscular Volume 98.0 Mean Corpuscular Hemoglobin 33.8 H Mean Corpuscular Hemoglobin Concent 34.5 Red Cell Distribution Width 20.9 #H Platelet Count 378 Mean Platelet Volume 13.5 H Neutrophils % Segmented Neutrophils % (Manual) 87 H Lymphocytes % Lymphocytes % (Manual) 6 L Monocytes % Monocytes % (Manual) 2 Eosinophils % Eosinophils % (Manual) 5 Basophils % Nucleated Red Blood Cells % 1 H Neutrophils # Absolute Lymphocytes (Manual) 1.0 Lymphocytes # Monocytes # Absolute Monocytes (Manual) 0.3 Eosinophils # Basophils # Nucleated Red Blood Cells # Pathologist Review (Hematology) YES Platelet Estimate NORMAL Polychromasia 3+ Poikilocytosis 1+ Anisocytosis 2+ Microcytosis 1+ Macrocytosis 1+ Sodium Level 135 Potassium Level 5.0 Chloride Level 93 L Carbon Dioxide Level 28 Anion Gap 19 H Blood Urea Nitrogen 85 H Creatinine 4.04 H Glucose Level 321 H Calcium Level 8.7 Test 05/01/17 11:15 05/01/17 11:53 White Blood Count 25.6 #H Red Blood Count 1.75 L Hemoglobin 5.2 #*L Hematocrit 15.9 #L Mean Corpuscular Volume 90.9 Mean Corpuscular Hemoglobin 29.7 Mean Corpuscular Hemoglobin Concent 32.7 Red Cell Distribution Width 17.3 H Platelet Count 286 # Mean Platelet Volume 13.0 H Neutrophils % Segmented Neutrophils % (Manual) 93 H Band Neutrophils % (Manual) 1 Lymphocytes % Reactive Lymphocytes % (Manual) 1 H Monocytes % Monocytes % (Manual) 5 Eosinophils % Basophils % Nucleated Red Blood Cells % 2 H Neutrophils # Neutrophils # (Manual) 23.9 H Band Neutrophils # 0.2 Lymphocytes # Reactive Lymphocytes # 0.2 H Monocytes # Absolute Monocytes (Manual) 1.2 H Eosinophils # Basophils # Nucleated Red Blood Cells # Platelet Estimate NORMAL Giant Platelets 1 H Polychromasia 2+ Hypochromasia 1+ Poikilocytosis 2+ Anisocytosis 2+ Bedside Glucose 185 Medications Medications Current Medications Ondansetron HCl (Zofran Tab) 4 mg Q6H PRN PO NAUSEA AND/OR VOMITING; Start at 23:00 Nitroglycerin (Nitroglycerin (Sl Tab) 0.4 Mg) 1 tab Q5M PRN SL CHEST PAIN; Start 04/24/17 at 23:00 Docusate Sodium (Colace) 100 mg Q12H PRN PO CONSTIPATION; Start 04/24/17 at 23 :00 Bisacodyl (Dulcolax) 5 mg DAILY PRN PO CONSTIPATION; Start 04/24/17 at 23:00 Amlodipine Besylate (Norvasc) 5 mg DAILY PO Last administered on 05/01/17 08: 58; Admin Dose 5 MG; Start 04/25/17 at 09:00 Atorvastatin Calcium (Lipitor) 80 mg QHS PO Last administered on 04/30/17 21: 03; Admin Dose 80 MG; Start 04/25/17 at 21:00 Ergocalciferol (Drisdol) 50,000 unit Mo@09 PO Last administered on 04/29/17 17 :21; Admin Dose 50,000 UNIT; Start 04/24/17 at 23:00 Ferrous Sulfate (Ferrous Sulfate (Ec)) 325 mg DAILY PO Last administered on 08:57; Admin Dose 325 MG; Start 04/25/17 at 09:00 Multivit/Ca Carb/ B Cmplx/FA/Prenat (Isabel-Brenda) 1 tab DAILY PO Last administered on 05/01/17 08:58; Admin Dose 1 TAB; Start 04/25/17 at 09:00 Pantoprazole (Protonix Tab) 40 mg DAILY@06 PO Last administered on 05/01/17 05 :18; Admin Dose 40 MG; Start 04/25/17 at 06:00 Guaifenesin/ Dextromethorphan (Mucinex Dm) 1 tab BID PO Last administered on 12:06; Admin Dose 1 TAB; Start 04/25/17 at 03:15 Hydralazine HCl (Apresoline) 10 mg Q4H PRN IV ELEVATED BLOOD PRESSURE Last administered on 04/28/17 07:04; Admin Dose 10 MG; Start 04/25/17 at 03:30 Diagnostic Test (Pha) (Accu-Chek) 1 ea 02 XX Last administered on 05/01/17 02: 07; Admin Dose 1 EA; Start 04/26/17 at 02:00 Citric Acid/ Sodium Citrate (Bicitra) 30 ml TID PO Last administered on 09:04; Admin Dose 30 ML; Start 04/25/17 at 13:00 Aspirin (Aspirin) 81 mg DAILY PO Last administered on 04/30/17 10:05; Admin Dose 81 MG; Start 04/25/17 at 12:00 Heparin Sodium (Porcine) (Heparin (5000 Units/0.5 ml)) 5,000 unit BID SC Last administered on 04/30/17 21:08; Admin Dose 5,000 UNIT; Start 04/26/17 at 09:00 Miscellaneous Information 1 ea NOTE XX Last administered on 04/30/17 17:45; Admin Dose 1 EA; Start 04/25/17 at 12:00 Glucose (Glutose) 15 gm Q15M PRN PO DECREASED GLUCOSE; Start 04/25/17 at 12:00 Glucose (Glutose) 22.5 gm Q15M PRN PO DECREASED GLUCOSE; Start 04/25/17 at 12: 00 Dextrose (D50w Syringe) 25 ml Q15M PRN IV DECREASED GLUCOSE; Start 04/25/17 at 12:00 Dextrose (D50w Syringe) 50 ml Q15M PRN IV DECREASED GLUCOSE; Start 04/25/17 at 12:00 Glucagon (Glucagen) 1 mg Q15M PRN IM DECREASED GLUCOSE; Start 04/25/17 at 12: 00 Glucose (Glutose) 15 gm Q15M PRN BUCCAL DECREASED GLUCOSE; Start 04/25/17 at 12:00 Furosemide (Lasix) 20 mg BID IV Last administered on 04/30/17 21:04; Admin Dose 20 MG; Start 04/26/17 at 09:00 Fish Oil (Fish Oil) 2,000 mg BID PO Last administered on 05/01/17 09:01; Admin Dose 2,000 MG; Start 04/27/17 at 21:00 EZETIMIBE (Zetia) 10 mg DAILY PO Last administered on 05/01/17 08:58; Admin Dose 10 MG; Start 04/28/17 at 09:00 Metoprolol Succinate (Toprol Xl) 25 mg DAILY PO Last administered on 05/01/17 08:57; Admin Dose 25 MG; Start 04/27/17 at 11:00 Morphine Sulfate (morphine) 2 mg Q4H PRN IV Pain Last administered on 10:24; Admin Dose 2 MG; Start 04/28/17 at 09:00 Linagliptin 5 mg 5 mg DAILY PO Last administered on 05/01/17 08:57; Admin Dose 5 MG; Start 04/28/17 at 12:00 Cefepime HCl/ Dextrose (Maxipime/D5W) 50 ml @ 100 mls/hr Q24H IVPB Last administered on 04/29/17 17:22; Admin Dose 100 MLS/HR; Start 04/29/17 at 13:00 ; Stop 05/01/17 at 21:00 Tiotropium [place] (Spiriva) 1 inh DAILY INH Last administered on 05/01/17 08: 54; Admin Dose 1 INH; Start 04/30/17 at 13:30 Salmeterol Xinafoate/ Fluticasone (Advair 250/50 Diskus) 1 inh BID INH Last administered on 05/01/17 08:53; Admin Dose 1 INH; Start 04/30/17 at 21:00 Insulin Glargine (Lantus) 40 unit BID SC ; Start 05/01/17 at 21:00 Methylprednisolone Sodium Succinate (Solu-Medrol) 40 mg Q12 IV ; Start 05/01/17 at 21:00 Insulin Human NPH (Humulin N) 12 unit Q8 SC ; Start 05/01/17 at 14:00 Dell De La Torre DO May 01, 2017 15:10
--- NOTE | 2017-05-01 15:14 | CONS ---
Date/Time of Note Date/Time of Note DATE: 05/01/17 TIME: 14:33 Assessment/Plan Assessment/Plan Chief Complaint/Hosp Course Assessment: Anemia rule out GI bleed End-stage renal disease/dialysis Hypertension Diabetes type 2 Dyslipidemia Urinary artery disease Pulmonary edema Plan: EGD and colonoscopy on Saturday to rule out GI bleed Close monitoring of H&H Transfuse for hemoglobin less than 7.5 Continue dialysis Consultation performed in collaboration with Subjective: Patient reports feeling fair. Currently getting dialysis and blood transfusion. Patient and his have been interviewed. Old laboratory values have been reviewed. Plan of treatment discussed with patient and family. Risks and benefits of procedure have been explained. Patient and his are agreeable to the procedure. Discussed the plan with the nursing staff. Problems: Consultation Date/Type/Reason Admit Date/Time Apr 24, 2017 at 19:05 Date of Consultation: May 01, 2017 Type of Consultation: GI Reason for Consultation Severe Anemia Hx of Present Illness This is a 66-year-old [place] male. Who was initially admitted for coughing and fever on April 24 with diagnosis of pneumonia. He is now presents with severe anemia hemoglobin 5.2 and acute renal failure secondary to diabetes mellitus type 2. Patient denies hematemesis, hematochezia, or any signs of overt bleeding. Patient has a history of PUD diagnosed with endoscopy back in [facility], he reports history of visceral perforation of gastric ulcer with subsequent laparotomy and ligation. He denies having EGD after his surgery. And he never had a colonoscopy in the past. He is currently taking as needed Nexium for upper GI symptoms. His other history includes hypertension, gastritis, and diabetes type 2. Patient is currently getting dialysis and blood transfusion. The plan is to monitor H&H closely, transfuse as needed. EGD and colonoscopy on Saturday. Constitutional: improved, no complaints Eyes: no complaints ENT: no complaints Respiratory: no complaints Cardiovascular: no complaints Gastrointestinal: other (Occasional heartburn, see HPI) Genitourinary: no complaints Musculoskeletal: no complaints Skin: no complaints Neurologic: no complaints Endocrine: no complaints Lymphatic: no complaints Psychological: nl mood/affect, no complaints Immunologic: no complaints Past Medical History Medical History: coronary artery disease, deep vein thrombosis, diabetes, high cholesterol, hypertension, renal disease Past Surgical History Laparotomy for perforated gastric ulcer Past Surgical Hx: other (Coronary angiogram and stomach surgery ) Family History Significant Family History: cancer (Mother had bone cancer, father had gastric cancer), diabetes (Brother and sister), hypertension (Brother and sister) Social History Alcohol Use: occasionally Smoking Status: Former smoker Drug Use: none Exam/Review of Systems Vital Signs Vitals Vital Signs Date Time Temp Pulse Resp B/P Pulse Ox O2 Delivery O2 Flow Rate FiO2 05/01/17 12:55 92 24 93 Nasal Cannula 4.0 05/01/17 11:13 98.3 135/63 04/27/17 17:23 21 Intake and Output 04/30/17 04/30/17 05/01/17 14:59 22:59 06:59 Intake Total 1300 ml 950 ml 240 ml Output Total 2600 ml 1000 ml 250 ml Balance -1300 ml -50 ml -10 ml Exam PHYSICAL EXAMINATION: GENERAL: Well developed, obese , well nourished, alert & oriented x 3, in no acute distress SKIN: No lesions, no stigmata chronic liver disease, no evidence of bleeding diathesis, pale, edematous LYMPHATIC: No palpable lymphadenopathy. HEAD: Normocephalic, atraumatic, no tenderness. EYES: Pupils equal reactive to light and accommodation, full extraocular movements, sclera clear, non-icteric, no discharge. EARS/NOSE AND THROAT: Ears normal, nose normal, oropharynx normal, oral membranes well hydrated without lesions. NECK: Supple, no masses, thyroid normal, JVP within normal limits, carotids normal without bruits. CHEST: Inspection within normal limits. CARDIOVASCULAR: Heart: Regular rate and rhythm, no murmurs, gallops or rubs. Peripheral pulses present within normal limits, no cyanosis, clubbing or edemas. No pulsatile abdominal mass RESPIRATORY: Lungs clear to auscultation and percussion, no wheezing, no rubs GASTROINTESTINAL AND LIVER: Abdomen: Soft, obese , right upper quadrant tenderness, non-distended, no hernias, no masses, no organomegaly, no ascites, no guarding, no rebound tenderness, normoactive bowel sounds. Rectal: Deferred. GENITOURINARY: [Male genitalia within normal limits. EXTREMITIES: No cyanosis, clubbing or edema. Results Result Diagram: 05/01/17 1115 05/01/17 0645 Results 24 hrs Laboratory Tests Test 04/30/17 17:38 04/30/17 19:23 04/30/17 20:57 04/30/17 22:13 Bedside Glucose 56 L 114 199 264 H Test 05/01/17 02:05 05/01/17 05:16 05/01/17 06:45 05/01/17 08:02 Bedside Glucose 328 H 342 H 311 H White Blood Count 17.0 #H Red Blood Count 1.51 #L Hemoglobin 6.7 *L Hematocrit 20.1 L Mean Corpuscular Volume 98.0 Mean Corpuscular Hemoglobin 33.8 H Mean Corpuscular Hemoglobin Concent 34.5 Red Cell Distribution Width 20.9 #H Platelet Count 378 Mean Platelet Volume 13.5 H Neutrophils % Segmented Neutrophils % (Manual) 87 H Lymphocytes % Lymphocytes % (Manual) 6 L Monocytes % Monocytes % (Manual) 2 Eosinophils % Eosinophils % (Manual) 5 Basophils % Nucleated Red Blood Cells % 1 H Neutrophils # Absolute Lymphocytes (Manual) 1.0 Lymphocytes # Monocytes # Absolute Monocytes (Manual) 0.3 Eosinophils # Basophils # Nucleated Red Blood Cells # Pathologist Review (Hematology) YES Platelet Estimate NORMAL Polychromasia 3+ Poikilocytosis 1+ Anisocytosis 2+ Microcytosis 1+ Macrocytosis 1+ Sodium Level 135 Potassium Level 5.0 Chloride Level 93 L Carbon Dioxide Level 28 Anion Gap 19 H Blood Urea Nitrogen 85 H Creatinine 4.04 H Glucose Level 321 H Calcium Level 8.7 Test 05/01/17 11:15 05/01/17 11:53 White Blood Count 25.6 #H Red Blood Count 1.75 L Hemoglobin 5.2 #*L Hematocrit 15.9 #L Mean Corpuscular Volume 90.9 Mean Corpuscular Hemoglobin 29.7 Mean Corpuscular Hemoglobin Concent 32.7 Red Cell Distribution Width 17.3 H Platelet Count 286 # Mean Platelet Volume 13.0 H Neutrophils % Segmented Neutrophils % (Manual) 93 H Band Neutrophils % (Manual) 1 Lymphocytes % Reactive Lymphocytes % (Manual) 1 H Monocytes % Monocytes % (Manual) 5 Eosinophils % Basophils % Nucleated Red Blood Cells % 2 H Neutrophils # Neutrophils # (Manual) 23.9 H Band Neutrophils # 0.2 Lymphocytes # Reactive Lymphocytes # 0.2 H Monocytes # Absolute Monocytes (Manual) 1.2 H Eosinophils # Basophils # Nucleated Red Blood Cells # Platelet Estimate NORMAL Giant Platelets 1 H Polychromasia 2+ Hypochromasia 1+ Poikilocytosis 2+ Anisocytosis 2+ Bedside Glucose 185 Medications Medications Current Medications Ondansetron HCl (Zofran Tab) 4 mg Q6H PRN PO NAUSEA AND/OR VOMITING; Start at 23:00 Nitroglycerin (Nitroglycerin (Sl Tab) 0.4 Mg) 1 tab Q5M PRN SL CHEST PAIN; Start 04/24/17 at 23:00 Docusate Sodium (Colace) 100 mg Q12H PRN PO CONSTIPATION; Start 04/24/17 at 23 :00 Bisacodyl (Dulcolax) 5 mg DAILY PRN PO CONSTIPATION; Start 04/24/17 at 23:00 Amlodipine Besylate (Norvasc) 5 mg DAILY PO Last administered on 05/01/17 08: 58; Admin Dose 5 MG; Start 04/25/17 at 09:00 Atorvastatin Calcium (Lipitor) 80 mg QHS PO Last administered on 04/30/17 21: 03; Admin Dose 80 MG; Start 04/25/17 at 21:00 Ergocalciferol (Drisdol) 50,000 unit Mo@09 PO Last administered on 04/29/17 17 :21; Admin Dose 50,000 UNIT; Start 04/24/17 at 23:00 Ferrous Sulfate (Ferrous Sulfate (Ec)) 325 mg DAILY PO Last administered on 08:57; Admin Dose 325 MG; Start 04/25/17 at 09:00 Multivit/Ca Carb/ B Cmplx/FA/Prenat (Isabel-Brenda) 1 tab DAILY PO Last administered on 05/01/17 08:58; Admin Dose 1 TAB; Start 04/25/17 at 09:00 Pantoprazole (Protonix Tab) 40 mg DAILY@06 PO Last administered on 05/01/17 05 :18; Admin Dose 40 MG; Start 04/25/17 at 06:00 Guaifenesin/ Dextromethorphan (Mucinex Dm) 1 tab BID PO Last administered on 12:06; Admin Dose 1 TAB; Start 04/25/17 at 03:15 Hydralazine HCl (Apresoline) 10 mg Q4H PRN IV ELEVATED BLOOD PRESSURE Last administered on 04/28/17 07:04; Admin Dose 10 MG; Start 04/25/17 at 03:30 Diagnostic Test (Pha) (Accu-Chek) 1 ea 02 XX Last administered on 05/01/17 02: 07; Admin Dose 1 EA; Start 04/26/17 at 02:00 Citric Acid/ Sodium Citrate (Bicitra) 30 ml TID PO Last administered on 09:04; Admin Dose 30 ML; Start 04/25/17 at 13:00 Aspirin (Aspirin) 81 mg DAILY PO Last administered on 04/30/17 10:05; Admin Dose 81 MG; Start 04/25/17 at 12:00 Heparin Sodium (Porcine) (Heparin (5000 Units/0.5 ml)) 5,000 unit BID SC Last administered on 04/30/17 21:08; Admin Dose 5,000 UNIT; Start 04/26/17 at 09:00 Miscellaneous Information 1 ea NOTE XX Last administered on 04/30/17 17:45; Admin Dose 1 EA; Start 04/25/17 at 12:00 Glucose (Glutose) 15 gm Q15M PRN PO DECREASED GLUCOSE; Start 04/25/17 at 12:00 Glucose (Glutose) 22.5 gm Q15M PRN PO DECREASED GLUCOSE; Start 04/25/17 at 12: 00 Dextrose (D50w Syringe) 25 ml Q15M PRN IV DECREASED GLUCOSE; Start 04/25/17 at 12:00 Dextrose (D50w Syringe) 50 ml Q15M PRN IV DECREASED GLUCOSE; Start 04/25/17 at 12:00 Glucagon (Glucagen) 1 mg Q15M PRN IM DECREASED GLUCOSE; Start 04/25/17 at 12: 00 Glucose (Glutose) 15 gm Q15M PRN BUCCAL DECREASED GLUCOSE; Start 04/25/17 at 12:00 Furosemide (Lasix) 20 mg BID IV Last administered on 04/30/17 21:04; Admin Dose 20 MG; Start 04/26/17 at 09:00 Fish Oil (Fish Oil) 2,000 mg BID PO Last administered on 05/01/17 09:01; Admin Dose 2,000 MG; Start 04/27/17 at 21:00 EZETIMIBE (Zetia) 10 mg DAILY PO Last administered on 05/01/17 08:58; Admin Dose 10 MG; Start 04/28/17 at 09:00 Metoprolol Succinate (Toprol Xl) 25 mg DAILY PO Last administered on 05/01/17 08:57; Admin Dose 25 MG; Start 04/27/17 at 11:00 Morphine Sulfate (morphine) 2 mg Q4H PRN IV Pain Last administered on 10:24; Admin Dose 2 MG; Start 04/28/17 at 09:00 Linagliptin 5 mg 5 mg DAILY PO Last administered on 05/01/17 08:57; Admin Dose 5 MG; Start 04/28/17 at 12:00 Cefepime HCl/ Dextrose (Maxipime/D5W) 50 ml @ 100 mls/hr Q24H IVPB Last administered on 04/29/17 17:22; Admin Dose 100 MLS/HR; Start 04/29/17 at 13:00 ; Stop 05/01/17 at 21:00 Tiotropium [place] (Spiriva) 1 inh DAILY INH Last administered on 05/01/17 08: 54; Admin Dose 1 INH; Start 04/30/17 at 13:30 Salmeterol Xinafoate/ Fluticasone (Advair 250/50 Diskus) 1 inh BID INH Last administered on 05/01/17 08:53; Admin Dose 1 INH; Start 04/30/17 at 21:00 Insulin Glargine (Lantus) 40 unit BID SC ; Start 05/01/17 at 21:00 Methylprednisolone Sodium Succinate (Solu-Medrol) 40 mg Q12 IV ; Start 05/01/17 at 21:00 Insulin Human NPH (Humulin N) 12 unit Q8 SC ; Start 05/01/17 at 14:00 Copies To: CC: GERMÁN WAY MD, ANASTASIA NP May 01, 2017 15:02
[2017-05-01] MEDS ORDERED: BISACODYL (EC) 5 MG TAB PO ONE (15:30)
[2017-05-01 17:10] LABS: PATH REVIEW CH
--- NOTE | 2017-05-01 17:21 | CONS ---
Date/Time of Note Date/Time of Note DATE: 05/01/17 TIME: 17:19 Assessment/Plan Assessment/Plan Additional Assessment/Plan 1. 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 H/o CKD due to diabetic nehropathy as per pt was stage IV/V with eGFR 15 as outpatient 3. Acute hyperkalemia due to TROY on CKD - resolved after pt gets started on HD 4. Metabolic acidosis due to worsenign renal failure 5. H/ CAD S/p previous coronary angiogram as per patient 6. Hypertension 7. Type II DM 8. Hyperlipidemia 9. Acute NSETMI due to CHF 10. severe anemia despite getting PRBC, concerned abotu GI bleeding, Plan : hepatitis C antibody positive, Hepatitis A antibody positive S/p HD today, will do HD today with PRBC transfusion, S/p GI consult, plan for EGD + Colonoscopy on Saturday - we are not using heparin during HD, Catheter is also locked with Normal saline Renal US showed small size kidneys, no hydronephrosis, c/w CKD on Epogen for anemia will follow up Consultation Date/Type/Reason Admit Date/Time Apr 24, 2017 at 19:05 Initial Consult Date 04/25/17 Type of Consultation: NEPHROLOGY Referring Provider: NANY PRIEST NP 24 HR Interval Summary Free Text/Dictation Hb dropped to 5.2, BP stable, Catheter did not work well during HD today Exam/Review of Systems Vital Signs Vitals Vital Signs Date Time Temp Pulse Resp B/P Pulse Ox O2 Delivery O2 Flow Rate FiO2 05/01/17 16:02 94 05/01/17 15:28 97.5 17 132/60 98 05/01/17 12:55 Nasal Cannula 4.0 04/27/17 17:23 21 Intake and Output 04/30/17 04/30/17 05/01/17 15:00 23:00 07:00 Intake Total 1300 ml 950 ml 240 ml Output Total 2600 ml 1000 ml 250 ml Balance -1300 ml -50 ml -10 ml Results Result Diagram: 05/01/17 1115 05/01/17 0645 Results 24 hrs Laboratory Tests Test 04/30/17 17:38 04/30/17 19:23 04/30/17 20:57 04/30/17 22:13 Bedside Glucose 56 L 114 199 264 H Test 05/01/17 02:05 05/01/17 05:16 05/01/17 06:45 05/01/17 08:02 Bedside Glucose 328 H 342 H 311 H White Blood Count 17.0 #H Red Blood Count 1.51 #L Hemoglobin 6.7 *L Hematocrit 20.1 L Mean Corpuscular Volume 98.0 Mean Corpuscular Hemoglobin 33.8 H Mean Corpuscular Hemoglobin Concent 34.5 Red Cell Distribution Width 20.9 #H Platelet Count 378 Mean Platelet Volume 13.5 H Neutrophils % Segmented Neutrophils % (Manual) 87 H Lymphocytes % Lymphocytes % (Manual) 6 L Monocytes % Monocytes % (Manual) 2 Eosinophils % Eosinophils % (Manual) 5 Basophils % Nucleated Red Blood Cells % 1 H Neutrophils # Absolute Lymphocytes (Manual) 1.0 Lymphocytes # Monocytes # Absolute Monocytes (Manual) 0.3 Eosinophils # Basophils # Nucleated Red Blood Cells # Pathologist Review (Hematology) CH Platelet Estimate NORMAL Polychromasia 3+ Poikilocytosis 1+ Anisocytosis 2+ Microcytosis 1+ Macrocytosis 1+ Sodium Level 135 Potassium Level 5.0 Chloride Level 93 L Carbon Dioxide Level 28 Anion Gap 19 H Blood Urea Nitrogen 85 H Creatinine 4.04 H Glucose Level 321 H Calcium Level 8.7 Test 05/01/17 11:15 05/01/17 11:53 White Blood Count 25.6 #H Red Blood Count 1.75 L Hemoglobin 5.2 #*L Hematocrit 15.9 #L Mean Corpuscular Volume 90.9 Mean Corpuscular Hemoglobin 29.7 Mean Corpuscular Hemoglobin Concent 32.7 Red Cell Distribution Width 17.3 H Platelet Count 286 # Mean Platelet Volume 13.0 H Neutrophils % Segmented Neutrophils % (Manual) 93 H Band Neutrophils % (Manual) 1 Lymphocytes % Reactive Lymphocytes % (Manual) 1 H Monocytes % Monocytes % (Manual) 5 Eosinophils % Basophils % Nucleated Red Blood Cells % 2 H Neutrophils # Neutrophils # (Manual) 23.9 H Band Neutrophils # 0.2 Lymphocytes # Reactive Lymphocytes # 0.2 H Monocytes # Absolute Monocytes (Manual) 1.2 H Eosinophils # Basophils # Nucleated Red Blood Cells # Platelet Estimate NORMAL Giant Platelets 1 H Polychromasia 2+ Hypochromasia 1+ Poikilocytosis 2+ Anisocytosis 2+ Bedside Glucose 185 Medications Medications Current Medications Ondansetron HCl (Zofran Tab) 4 mg Q6H PRN PO NAUSEA AND/OR VOMITING; Start at 23:00 Nitroglycerin (Nitroglycerin (Sl Tab) 0.4 Mg) 1 tab Q5M PRN SL CHEST PAIN; Start 04/24/17 at 23:00 Docusate Sodium (Colace) 100 mg Q12H PRN PO CONSTIPATION; Start 04/24/17 at 23 :00 Bisacodyl (Dulcolax) 5 mg DAILY PRN PO CONSTIPATION; Start 04/24/17 at 23:00 Amlodipine Besylate (Norvasc) 5 mg DAILY PO Last administered on 05/01/17 08: 58; Admin Dose 5 MG; Start 04/25/17 at 09:00 Atorvastatin Calcium (Lipitor) 80 mg QHS PO Last administered on 04/30/17 21: 03; Admin Dose 80 MG; Start 04/25/17 at 21:00 Ergocalciferol (Drisdol) 50,000 unit Mo@09 PO Last administered on 04/29/17 17 :21; Admin Dose 50,000 UNIT; Start 04/24/17 at 23:00 Ferrous Sulfate (Ferrous Sulfate (Ec)) 325 mg DAILY PO Last administered on 08:57; Admin Dose 325 MG; Start 04/25/17 at 09:00 Multivit/Ca Carb/ B Cmplx/FA/Prenat (Isabel-Brenda) 1 tab DAILY PO Last administered on 05/01/17 08:58; Admin Dose 1 TAB; Start 04/25/17 at 09:00 Pantoprazole (Protonix Tab) 40 mg DAILY@06 PO Last administered on 05/01/17 05 :18; Admin Dose 40 MG; Start 04/25/17 at 06:00 Guaifenesin/ Dextromethorphan (Mucinex Dm) 1 tab BID PO Last administered on 12:06; Admin Dose 1 TAB; Start 04/25/17 at 03:15 Hydralazine HCl (Apresoline) 10 mg Q4H PRN IV ELEVATED BLOOD PRESSURE Last administered on 04/28/17 07:04; Admin Dose 10 MG; Start 04/25/17 at 03:30 Diagnostic Test (Pha) (Accu-Chek) 1 ea 02 XX Last administered on 05/01/17 02: 07; Admin Dose 1 EA; Start 04/26/17 at 02:00 Citric Acid/ Sodium Citrate (Bicitra) 30 ml TID PO Last administered on 09:04; Admin Dose 30 ML; Start 04/25/17 at 13:00 Aspirin (Aspirin) 81 mg DAILY PO Last administered on 04/30/17 10:05; Admin Dose 81 MG; Start 04/25/17 at 12:00; Status Future Hold Heparin Sodium (Porcine) (Heparin (5000 Units/0.5 ml)) 5,000 unit BID SC Last administered on 04/30/17 21:08; Admin Dose 5,000 UNIT; Start 04/26/17 at 09:00 Miscellaneous Information 1 ea NOTE XX Last administered on 04/30/17 17:45; Admin Dose 1 EA; Start 04/25/17 at 12:00 Glucose (Glutose) 15 gm Q15M PRN PO DECREASED GLUCOSE; Start 04/25/17 at 12:00 Glucose (Glutose) 22.5 gm Q15M PRN PO DECREASED GLUCOSE; Start 04/25/17 at 12: 00 Dextrose (D50w Syringe) 25 ml Q15M PRN IV DECREASED GLUCOSE; Start 04/25/17 at 12:00 Dextrose (D50w Syringe) 50 ml Q15M PRN IV DECREASED GLUCOSE; Start 04/25/17 at 12:00 Glucagon (Glucagen) 1 mg Q15M PRN IM DECREASED GLUCOSE; Start 04/25/17 at 12: 00 Glucose (Glutose) 15 gm Q15M PRN BUCCAL DECREASED GLUCOSE; Start 04/25/17 at 12:00 Furosemide (Lasix) 20 mg BID IV Last administered on 04/30/17 21:04; Admin Dose 20 MG; Start 04/26/17 at 09:00 Fish Oil (Fish Oil) 2,000 mg BID PO Last administered on 05/01/17 09:01; Admin Dose 2,000 MG; Start 04/27/17 at 21:00 EZETIMIBE (Zetia) 10 mg DAILY PO Last administered on 05/01/17 08:58; Admin Dose 10 MG; Start 04/28/17 at 09:00 Metoprolol Succinate (Toprol Xl) 25 mg DAILY PO Last administered on 05/01/17 08:57; Admin Dose 25 MG; Start 04/27/17 at 11:00 Morphine Sulfate (morphine) 2 mg Q4H PRN IV Pain Last administered on 10:24; Admin Dose 2 MG; Start 04/28/17 at 09:00 Linagliptin 5 mg 5 mg DAILY PO Last administered on 05/01/17 08:57; Admin Dose 5 MG; Start 04/28/17 at 12:00 Cefepime HCl/ Dextrose (Maxipime/D5W) 50 ml @ 100 mls/hr Q24H IVPB Last administered on 04/29/17 17:22; Admin Dose 100 MLS/HR; Start 04/29/17 at 13:00 ; Stop 05/01/17 at 21:00 Tiotropium [place] (Spiriva) 1 inh DAILY INH Last administered on 05/01/17 08: 54; Admin Dose 1 INH; Start 04/30/17 at 13:30 Salmeterol Xinafoate/ Fluticasone (Advair 250/50 Diskus) 1 inh BID INH Last administered on 05/01/17 08:53; Admin Dose 1 INH; Start 04/30/17 at 21:00 Insulin Glargine (Lantus) 40 unit BID SC ; Start 05/01/17 at 21:00 Methylprednisolone Sodium Succinate (Solu-Medrol) 40 mg Q12 IV ; Start 05/01/17 at 21:00 Insulin Human NPH (Humulin N) 12 unit Q8 SC ; Start 05/01/17 at 14:00 Magnesium Citrate (Citroma) 300 ml ONCE ONCE PO ; Start 05/01/17 at 17:30; Stop 05/01/17 at 17:31 Polyethylene Glycol (Miralax) 119 gm ONCE ONCE PO ; Start 05/01/17 at 18:30; Stop 05/01/17 at 18:31 RAQUEL MCDOWELL MD May 01, 2017 17:21
[2017-05-01] MEDS ORDERED: MAGNESIUM CITRATE 300 ML BTL PO ONE (17:30)
--- NOTE | 2017-05-01 17:33 | CONS ---
Date/Time of Note Date/Time of Note DATE: 05/01/17 TIME: 17:29 Assessment/Plan Assessment/Plan Chief Complaint/Hosp Course Pleasant [place] gentleman with his family present in the room reporting a 30 year history of diabetes mellitus type 2. He had been on oral agent therapy but as his kidneys declined he was transitioned over to a multiple daily injection regimen using Lantus and NovoLog. He intermittently takes full dose Januvia 100 mg despite his renal dysfunction Problems: (1) Diabetes mellitus type 2 in obese Status: Chronic Comment: Patient's sugars took off as expected with steroids. However with adjustment dosages of insulin is now just starting to come under control. Continue adjusting insulin regimen. (2) End stage renal disease on dialysis due to type 2 diabetes mellitus Status: Chronic Comment: As per nephrology. Please note the patient's new onset of severe anemia in spite of transfusion. As patient is being transfused and he may need another more urgent dialysis procedure (3) Anemia, chronic renal failure Status: Chronic Comment: Patient has severe anemia is now been seen by GI. They are planning to do procedure in 2 days. This should give us enough time to try and get him stabilized with transfusions. Qualifiers: Chronic kidney disease stage: stage 5 Qualified Code: N18.5 - Anemia of chronic renal failure, stage 5 (4) Hepatitis C antibody positive in blood Status: Acute Comment: This will need to be followed up as an outpatient. (5) Hyperlipidemia associated with type 2 diabetes mellitus Status: Chronic Comment: Stable on statin therapy (6) COPD (chronic obstructive pulmonary disease) Status: Chronic Comment: Breathing has improved somewhat. Consider tapering the steroids please Qualifiers: COPD type: emphysema Emphysema type: unspecified Qualified Code: J43.9 - Pulmonary emphysema, unspecified emphysema type (7) Essential hypertension Status: Chronic Comment: Adequate control Consultation Date/Type/Reason Admit Date/Time Apr 24, 2017 at 19:05 Initial Consult Date 04/27/17 Type of Consultation: Endocrinology Reason for Consultation Diabetes mellitus on multiple daily injection regimen who is also on steroids. In addition end-stage renal disease; and new severe anemia. Referring Provider: NANY PRIEST NP 24 HR Interval Summary Constitutional: no complaints Exam/Review of Systems Vital Signs Vitals Vital Signs Date Time Temp Pulse Resp B/P Pulse Ox O2 Delivery O2 Flow Rate FiO2 05/01/17 17:19 86 24 94 Nasal Cannula 4.0 05/01/17 15:28 97.5 132/60 04/27/17 17:23 21 Intake and Output 04/30/17 04/30/17 05/01/17 15:00 23:00 07:00 Intake Total 1300 ml 950 ml 240 ml Output Total 2600 ml 1000 ml 250 ml Balance -1300 ml -50 ml -10 ml Results No change except appears pale Result Diagram: 05/01/17 1115 05/01/17 0645 Results 24 hrs Laboratory Tests Test 04/30/17 17:38 04/30/17 19:23 04/30/17 20:57 04/30/17 22:13 Bedside Glucose 56 L 114 199 264 H Test 05/01/17 02:05 05/01/17 05:16 05/01/17 06:45 05/01/17 08:02 Bedside Glucose 328 H 342 H 311 H White Blood Count 17.0 #H Red Blood Count 1.51 #L Hemoglobin 6.7 *L Hematocrit 20.1 L Mean Corpuscular Volume 98.0 Mean Corpuscular Hemoglobin 33.8 H Mean Corpuscular Hemoglobin Concent 34.5 Red Cell Distribution Width 20.9 #H Platelet Count 378 Mean Platelet Volume 13.5 H Neutrophils % Segmented Neutrophils % (Manual) 87 H Lymphocytes % Lymphocytes % (Manual) 6 L Monocytes % Monocytes % (Manual) 2 Eosinophils % Eosinophils % (Manual) 5 Basophils % Nucleated Red Blood Cells % 1 H Neutrophils # Absolute Lymphocytes (Manual) 1.0 Lymphocytes # Monocytes # Absolute Monocytes (Manual) 0.3 Eosinophils # Basophils # Nucleated Red Blood Cells # Pathologist Review (Hematology) CH Platelet Estimate NORMAL Polychromasia 3+ Poikilocytosis 1+ Anisocytosis 2+ Microcytosis 1+ Macrocytosis 1+ Sodium Level 135 Potassium Level 5.0 Chloride Level 93 L Carbon Dioxide Level 28 Anion Gap 19 H Blood Urea Nitrogen 85 H Creatinine 4.04 H Glucose Level 321 H Calcium Level 8.7 Test 05/01/17 11:15 05/01/17 11:53 White Blood Count 25.6 #H Red Blood Count 1.75 L Hemoglobin 5.2 #*L Hematocrit 15.9 #L Mean Corpuscular Volume 90.9 Mean Corpuscular Hemoglobin 29.7 Mean Corpuscular Hemoglobin Concent 32.7 Red Cell Distribution Width 17.3 H Platelet Count 286 # Mean Platelet Volume 13.0 H Neutrophils % Segmented Neutrophils % (Manual) 93 H Band Neutrophils % (Manual) 1 Lymphocytes % Reactive Lymphocytes % (Manual) 1 H Monocytes % Monocytes % (Manual) 5 Eosinophils % Basophils % Nucleated Red Blood Cells % 2 H Neutrophils # Neutrophils # (Manual) 23.9 H Band Neutrophils # 0.2 Lymphocytes # Reactive Lymphocytes # 0.2 H Monocytes # Absolute Monocytes (Manual) 1.2 H Eosinophils # Basophils # Nucleated Red Blood Cells # Platelet Estimate NORMAL Giant Platelets 1 H Polychromasia 2+ Hypochromasia 1+ Poikilocytosis 2+ Anisocytosis 2+ Bedside Glucose 185 Medications Medications Current Medications Ondansetron HCl (Zofran Tab) 4 mg Q6H PRN PO NAUSEA AND/OR VOMITING; Start at 23:00 Nitroglycerin (Nitroglycerin (Sl Tab) 0.4 Mg) 1 tab Q5M PRN SL CHEST PAIN; Start 04/24/17 at 23:00 Docusate Sodium (Colace) 100 mg Q12H PRN PO CONSTIPATION; Start 04/24/17 at 23 :00 Bisacodyl (Dulcolax) 5 mg DAILY PRN PO CONSTIPATION; Start 04/24/17 at 23:00 Amlodipine Besylate (Norvasc) 5 mg DAILY PO Last administered on 05/01/17 08: 58; Admin Dose 5 MG; Start 04/25/17 at 09:00 Atorvastatin Calcium (Lipitor) 80 mg QHS PO Last administered on 04/30/17 21: 03; Admin Dose 80 MG; Start 04/25/17 at 21:00 Ergocalciferol (Drisdol) 50,000 unit Mo@09 PO Last administered on 04/29/17 17 :21; Admin Dose 50,000 UNIT; Start 04/24/17 at 23:00 Ferrous Sulfate (Ferrous Sulfate (Ec)) 325 mg DAILY PO Last administered on 08:57; Admin Dose 325 MG; Start 04/25/17 at 09:00 Multivit/Ca Carb/ B Cmplx/FA/Prenat (Isabel-Brenda) 1 tab DAILY PO Last administered on 05/01/17 08:58; Admin Dose 1 TAB; Start 04/25/17 at 09:00 Pantoprazole (Protonix Tab) 40 mg DAILY@06 PO Last administered on 05/01/17 05 :18; Admin Dose 40 MG; Start 04/25/17 at 06:00 Guaifenesin/ Dextromethorphan (Mucinex Dm) 1 tab BID PO Last administered on 12:06; Admin Dose 1 TAB; Start 04/25/17 at 03:15 Hydralazine HCl (Apresoline) 10 mg Q4H PRN IV ELEVATED BLOOD PRESSURE Last administered on 04/28/17 07:04; Admin Dose 10 MG; Start 04/25/17 at 03:30 Diagnostic Test (Pha) (Accu-Chek) 1 ea 02 XX Last administered on 05/01/17 02: 07; Admin Dose 1 EA; Start 04/26/17 at 02:00 Citric Acid/ Sodium Citrate (Bicitra) 30 ml TID PO Last administered on 09:04; Admin Dose 30 ML; Start 04/25/17 at 13:00 Aspirin (Aspirin) 81 mg DAILY PO Last administered on 04/30/17 10:05; Admin Dose 81 MG; Start 04/25/17 at 12:00; Status Future Hold Heparin Sodium (Porcine) (Heparin (5000 Units/0.5 ml)) 5,000 unit BID SC Last administered on 04/30/17 21:08; Admin Dose 5,000 UNIT; Start 04/26/17 at 09:00 Miscellaneous Information 1 ea NOTE XX Last administered on 04/30/17 17:45; Admin Dose 1 EA; Start 04/25/17 at 12:00 Glucose (Glutose) 15 gm Q15M PRN PO DECREASED GLUCOSE; Start 04/25/17 at 12:00 Glucose (Glutose) 22.5 gm Q15M PRN PO DECREASED GLUCOSE; Start 04/25/17 at 12: 00 Dextrose (D50w Syringe) 25 ml Q15M PRN IV DECREASED GLUCOSE; Start 04/25/17 at 12:00 Dextrose (D50w Syringe) 50 ml Q15M PRN IV DECREASED GLUCOSE; Start 04/25/17 at 12:00 Glucagon (Glucagen) 1 mg Q15M PRN IM DECREASED GLUCOSE; Start 04/25/17 at 12: 00 Glucose (Glutose) 15 gm Q15M PRN BUCCAL DECREASED GLUCOSE; Start 04/25/17 at 12:00 Furosemide (Lasix) 20 mg BID IV Last administered on 04/30/17 21:04; Admin Dose 20 MG; Start 04/26/17 at 09:00 Fish Oil (Fish Oil) 2,000 mg BID PO Last administered on 05/01/17 09:01; Admin Dose 2,000 MG; Start 04/27/17 at 21:00 EZETIMIBE (Zetia) 10 mg DAILY PO Last administered on 05/01/17 08:58; Admin Dose 10 MG; Start 04/28/17 at 09:00 Metoprolol Succinate (Toprol Xl) 25 mg DAILY PO Last administered on 05/01/17 08:57; Admin Dose 25 MG; Start 04/27/17 at 11:00 Morphine Sulfate (morphine) 2 mg Q4H PRN IV Pain Last administered on 10:24; Admin Dose 2 MG; Start 04/28/17 at 09:00 Linagliptin 5 mg 5 mg DAILY PO Last administered on 05/01/17 08:57; Admin Dose 5 MG; Start 04/28/17 at 12:00 Cefepime HCl/ Dextrose (Maxipime/D5W) 50 ml @ 100 mls/hr Q24H IVPB Last administered on 04/29/17 17:22; Admin Dose 100 MLS/HR; Start 04/29/17 at 13:00 ; Stop 05/01/17 at 21:00 Tiotropium [place] (Spiriva) 1 inh DAILY INH Last administered on 05/01/17 08: 54; Admin Dose 1 INH; Start 04/30/17 at 13:30 Salmeterol Xinafoate/ Fluticasone (Advair 250/50 Diskus) 1 inh BID INH Last administered on 05/01/17 08:53; Admin Dose 1 INH; Start 04/30/17 at 21:00 Insulin Glargine (Lantus) 40 unit BID SC ; Start 05/01/17 at 21:00 Methylprednisolone Sodium Succinate (Solu-Medrol) 40 mg Q12 IV ; Start 05/01/17 at 21:00 Insulin Human NPH (Humulin N) 12 unit Q8 SC ; Start 05/01/17 at 14:00 Magnesium Citrate (Citroma) 300 ml ONCE ONCE PO ; Start 05/01/17 at 17:30; Stop 05/01/17 at 17:31 Polyethylene Glycol (Miralax) 119 gm ONCE ONCE PO ; Start 05/01/17 at 18:30; Stop 05/01/17 at 18:31 MARA GRAYSON MD May 01, 2017 17:33
[2017-05-01] MEDS ORDERED: POLYETHYLENE GLYCOL 3350 119 GM POWDER PO ONE (18:30)
[2017-05-01] MEDS: ATORVASTATIN 80 MG TAB PO SCH (23:25)
[2017-05-01] MEDS: CEFEPIME HCL IVPB SCH (23:40)
[2017-05-01] MEDS: DEXTROSE 5% IVPB SCH (23:40)
[2017-05-01] MEDS: INSULIN GLARGINE [LANtus] 3 ML PEN SC SCH (23:47)
[2017-05-02] VITALS (10 sets, daily range): BP systolic 134–152; BP diastolic 59–69; PULSE 61–75; RESP 18–22
[2017-05-02] MEDS: ALBUTEROL/IPRATROPIUM (NEB) 3 ML AMP HHN SCH ×6 (00:01→20:19)
[2017-05-02] MEDS: ACCU-CHEK XX SCH (02:00)
[2017-05-02] MEDS ORDERED: POLYETHYLENE GLYCOL 3350 119 GM POWDER PO ONE (06:00)
[2017-05-02] MEDS: PANTOPRAZOLE (EC) 40 MG TAB PO SCH (06:33)
[2017-05-02] MEDS: NPH, HUMAN INSULIN ISOPHANE 3ML VIAL SC SCH (06:42)
[2017-05-02] MEDS: INSULIN ASPART [NOVOLOG] 3 ML PEN SC SCH ×7 (07:41→21:00)
[2017-05-02 07:45] LABS: CALCIUM 8.5 mg/dl (8.4-10.2); CREATININE 4.21 mg/dl (0.61-1.24); POTASSIUM 4.9 mmol/L (3.5-5.1)
[2017-05-02] MEDS ORDERED: BISACODYL (EC) 5 MG TAB PO ONE (08:00)
[2017-05-02] MEDS: FISH OIL 1,000 MG CAP PO SCH ×2 (08:28→21:25)
[2017-05-02] MEDS: FERROUS SULFATE (EC) 325 MG TAB PO SCH (08:29)
[2017-05-02] MEDS: GUAIFENESIN/DM (SR) TAB PO SCH ×2 (08:29→21:25)
[2017-05-02] MEDS: LINAGLIPTIN 5 MG TABLET PO SCH (08:29)
[2017-05-02] MEDS: METOPROLOL (XL) 25 MG TAB PO SCH (08:29)
[2017-05-02] MEDS: EZETIMIBE 10 MG TAB PO SCH (08:30)
[2017-05-02] MEDS: MULTIVIT/CA CARB/B CMPLX/FA TAB PO SCH (08:30)
[2017-05-02] MEDS: AMLODIPINE 5 MG TAB PO SCH (08:30)
[2017-05-02] MEDS: SALMETEROL/FLUTICASONE 250/50 INHA INH SCH ×2 (08:31→21:25)
[2017-05-02] MEDS: TIOTROPIUM 18 MCG CAPSULE INHA DEV INH SCH (08:31)
[2017-05-02] MEDS: FUROSEMIDE 20 MG INJ IV SCH ×2 (08:32→21:00)
[2017-05-02] MEDS: METHYLPREDNISOLONE 40 MG INJ IV SCH (08:36)
[2017-05-02] MEDS: CITRIC ACID/SODIUM CITRATE 15 ML CUP PO SCH ×3 (08:39→21:24)
[2017-05-02] MEDS: HEPARIN 5,000 UNIT/0.5 ML VIAL SC SCH ×2 (08:48→21:35)
[2017-05-02] MEDS: INSULIN GLARGINE [LANtus] 3 ML PEN SC SCH ×2 (08:52→21:00)
[2017-05-02] MEDS: BUDESONIDE (NEB) 0.5MG/2ML AMP HHN SCH ×2 (09:00→20:00)
[2017-05-02 09:09] LABS: ABNORMAL IP MESSAGE 1; BASOPHIL # 0.1 10^3/ul (0.0-0.1); BASOPHILS % 0.2 % (0.0-2.0); LYMPHOCYTES # 1.5 10^3/ul (0.8-2.9); LYMPHOCYTES % 6.6 % (15.0-51.0); MEAN PLATELET VOLUME 12.9 fl (7.4-10.4); MONOCYTE # 0.7 10^3/ul (0.3-0.9); MONOCYTES % 2.9 % (0.0-11.0); NEUTROPHIL # 19.8 10^3/ul (1.6-7.5); NEUTROPHILS % 86.7 % (39.0-77.0); NUCLEATED RED BLOOD CELLS # 0.3 10^3/ul (0.0-0.0); NUCLEATED RED BLOOD CELLS% 1.1 /100WBC (0.0-0.0); PLATELET COUNT 296 10^3/UL (140-415); POSITIVE DIFF @See below; WHITE BLOOD COUNT 22.8 10^3/ul (4.8-10.8)
[2017-05-02 09:10] LABS: HEMATOCRIT 21.7 % (42.0-52.0); RED BLOOD COUNT 2.42 10^6/ul (4.70-6.10)
[2017-05-02 09:11] LABS: MEAN CORPUSCULAR HGB CONC 34.6 g/dl (32.0-37.0); MEAN CORPUSCULAR VOLUME 89.7 fl (82.0-101.0); RED CELL DISTRIBUTION WIDTH 16.7 % (11.5-14.5)
[2017-05-02 09:12] LABS: HEMOGLOBIN 7.5 g/dl (14.0-18.0)
--- NOTE | 2017-05-02 10:54 | CONS ---
Date/Time of Note Date/Time of Note DATE: 05/02/17 TIME: 10:53 Consult Date/Type/Reason Admit Date/Time Apr 24, 2017 at 19:05 Initial Consult Date 05/01/17 Type of Consultation: Pulmonary Ordering Provider: NANY PRIEST [employer] Subjective Patient remains stable. No new events. Breathing has improved. Objective Vital Signs Date Time Temp Pulse Resp B/P Pulse Ox O2 Delivery O2 Flow Rate FiO2 05/02/17 09:05 4.0 05/02/17 08:00 69 05/02/17 07:58 97.4 18 134/63 97 05/01/17 17:19 Nasal Cannula Intake and Output 05/01/17 05/01/17 05/02/17 14:59 22:59 06:59 Intake Total 500 ml 1200 ml 400 ml Output Total 800 ml 2500 ml Balance -300 ml -1300 ml 400 ml Exam GENERAL: Elderly [place] gentleman comfortable at rest VITAL SIGNS: per chart NECK: Supple. No JVD or lymphadenopathy. CARDIAC EXAM: S1, S2. No added sounds or murmurs. CHEST: clear bilaterally, No added sounds, rales or wheezes ABDOMEN: Soft, nontender. No guarding or rebound. EXTREMITIES: No cyanosis, clubbing or edema. NEUROLOGIC: Generalized weakness. No focal deficits. Results/Medications Result Diagram: 05/02/1762105/02/17621 Results 24 hrs Laboratory Tests Test 05/01/17 11:15 05/01/17 11:53 05/01/17 17:41 05/01/17 22:05 White Blood Count 25.6 #H Red Blood Count 1.75 L Hemoglobin 5.2 #*L Hematocrit 15.9 #L Mean Corpuscular Volume 90.9 Mean Corpuscular Hemoglobin 29.7 Mean Corpuscular Hemoglobin Concent 32.7 Red Cell Distribution Width 17.3 H Platelet Count 286 # Mean Platelet Volume 13.0 H Neutrophils % Segmented Neutrophils % (Manual) 93 H Band Neutrophils % (Manual) 1 Lymphocytes % Reactive Lymphocytes % (Manual) 1 H Monocytes % Monocytes % (Manual) 5 Eosinophils % Basophils % Nucleated Red Blood Cells % 2 H Neutrophils # Neutrophils # (Manual) 23.9 H Band Neutrophils # 0.2 Lymphocytes # Reactive Lymphocytes # 0.2 H Monocytes # Absolute Monocytes (Manual) 1.2 H Eosinophils # Basophils # Nucleated Red Blood Cells # Platelet Estimate NORMAL Giant Platelets 1 H Polychromasia 2+ Hypochromasia 1+ Poikilocytosis 2+ Anisocytosis 2+ Bedside Glucose 185 262 H 139 Test 05/02/17 06:22 05/02/17 06:36 05/02/17 06:54 05/02/17 07:33 White Blood Count 22.8 H Red Blood Count 2.42 #L Hemoglobin 7.5 #L Hematocrit 21.7 #L Mean Corpuscular Volume 89.7 Mean Corpuscular Hemoglobin 31.0 Mean Corpuscular Hemoglobin Concent 34.6 Red Cell Distribution Width 16.7 H Platelet Count 296 Mean Platelet Volume 12.9 H Neutrophils % 86.7 H Lymphocytes % 6.6 L Monocytes % 2.9 Eosinophils % 0.0 Basophils % 0.2 Nucleated Red Blood Cells % 1.1 H Neutrophils # 19.8 H Lymphocytes # 1.5 Monocytes # 0.7 Eosinophils # 0.0 Basophils # 0.1 Nucleated Red Blood Cells # 0.3 H Sodium Level 135 Potassium Level 4.9 Chloride Level 98 Carbon Dioxide Level 26 Anion Gap 16 Blood Urea Nitrogen 75 H Creatinine 4.21 H Glucose Level 240 H Calcium Level 8.5 Bedside Glucose 278 H 323 H Lab Scanned Report BLOOD TRANSFUSION Medications Current Medications Ondansetron HCl (Zofran Tab) 4 mg Q6H PRN PO NAUSEA AND/OR VOMITING; Start at 23:00 Nitroglycerin (Nitroglycerin (Sl Tab) 0.4 Mg) 1 tab Q5M PRN SL CHEST PAIN; Start 04/24/17 at 23:00 Docusate Sodium (Colace) 100 mg Q12H PRN PO CONSTIPATION; Start 04/24/17 at 23 :00 Bisacodyl (Dulcolax) 5 mg DAILY PRN PO CONSTIPATION; Start 04/24/17 at 23:00 Amlodipine Besylate (Norvasc) 5 mg DAILY PO Last administered on 05/02/17 08: 30; Admin Dose 5 MG; Start 04/25/17 at 09:00 Atorvastatin Calcium (Lipitor) 80 mg QHS PO Last administered on 05/01/17 23: 25; Admin Dose 80 MG; Start 04/25/17 at 21:00 Ergocalciferol (Drisdol) 50,000 unit Mo@09 PO Last administered on 04/29/17 17 :21; Admin Dose 50,000 UNIT; Start 04/24/17 at 23:00 Ferrous Sulfate (Ferrous Sulfate (Ec)) 325 mg DAILY PO Last administered on 08:29; Admin Dose 325 MG; Start 04/25/17 at 09:00 Multivit/Ca Carb/ B Cmplx/FA/Prenat (Isabel-Brenda) 1 tab DAILY PO Last administered on 05/02/17 08:30; Admin Dose 1 TAB; Start 04/25/17 at 09:00 Pantoprazole (Protonix Tab) 40 mg DAILY@06 PO Last administered on 05/02/17 06 :33; Admin Dose 40 MG; Start 04/25/17 at 06:00 Guaifenesin/ Dextromethorphan (Mucinex Dm) 1 tab BID PO Last administered on 08:29; Admin Dose 1 TAB; Start 04/25/17 at 03:15 Hydralazine HCl (Apresoline) 10 mg Q4H PRN IV ELEVATED BLOOD PRESSURE Last administered on 04/28/17 07:04; Admin Dose 10 MG; Start 04/25/17 at 03:30 Diagnostic Test (Pha) (Accu-Chek) 1 ea 02 XX Last administered on 05/01/17 02: 07; Admin Dose 1 EA; Start 04/26/17 at 02:00 Citric Acid/ Sodium Citrate (Bicitra) 30 ml TID PO Last administered on 08:39; Admin Dose 30 ML; Start 04/25/17 at 13:00 Aspirin (Aspirin) 81 mg DAILY PO Last administered on 04/30/17 10:05; Admin Dose 81 MG; Start 04/25/17 at 12:00; Status Future Hold Heparin Sodium (Porcine) (Heparin (5000 Units/0.5 ml)) 5,000 unit BID SC Last administered on 05/02/17 08:48; Admin Dose 5,000 UNIT; Start 04/26/17 at 09:00 Miscellaneous Information 1 ea NOTE XX Last administered on 04/30/17 17:45; Admin Dose 1 EA; Start 04/25/17 at 12:00 Glucose (Glutose) 15 gm Q15M PRN PO DECREASED GLUCOSE; Start 04/25/17 at 12:00 Glucose (Glutose) 22.5 gm Q15M PRN PO DECREASED GLUCOSE; Start 04/25/17 at 12: 00 Dextrose (D50w Syringe) 25 ml Q15M PRN IV DECREASED GLUCOSE; Start 04/25/17 at 12:00 Dextrose (D50w Syringe) 50 ml Q15M PRN IV DECREASED GLUCOSE; Start 04/25/17 at 12:00 Glucagon (Glucagen) 1 mg Q15M PRN IM DECREASED GLUCOSE; Start 04/25/17 at 12: 00 Glucose (Glutose) 15 gm Q15M PRN BUCCAL DECREASED GLUCOSE; Start 04/25/17 at 12:00 Furosemide (Lasix) 20 mg BID IV Last administered on 05/01/17 23:26; Admin Dose 20 MG; Start 04/26/17 at 09:00 Fish Oil (Fish Oil) 2,000 mg BID PO Last administered on 05/02/17 08:28; Admin Dose 2,000 MG; Start 04/27/17 at 21:00 EZETIMIBE (Zetia) 10 mg DAILY PO Last administered on 05/02/17 08:30; Admin Dose 10 MG; Start 04/28/17 at 09:00 Metoprolol Succinate (Toprol Xl) 25 mg DAILY PO Last administered on 05/02/17 08:29; Admin Dose 25 MG; Start 04/27/17 at 11:00 Morphine Sulfate (morphine) 2 mg Q4H PRN IV Pain Last administered on 10:24; Admin Dose 2 MG; Start 04/28/17 at 09:00 Linagliptin (Tradjenta) 5 mg DAILY PO Last administered on 05/02/17 08:29; Admin Dose 5 MG; Start 04/28/17 at 12:00 Tiotropium [place] (Spiriva) 1 inh DAILY INH Last administered on 05/02/17 08: 31; Admin Dose 1 INH; Start 04/30/17 at 13:30 Salmeterol Xinafoate/ Fluticasone (Advair 250/50 Diskus) 1 inh BID INH Last administered on 05/02/17 08:31; Admin Dose 1 INH; Start 04/30/17 at 21:00 Insulin Glargine (Lantus) 40 unit BID SC Last administered on 05/02/17 08:52; Admin Dose 40 UNIT; Start 05/01/17 at 21:00 Methylprednisolone Sodium Succinate (Solu-Medrol) 40 mg Q12 IV Last administered on 05/02/17 08:36; Admin Dose 40 MG; Start 05/01/17 at 21:00 Insulin Human NPH (Humulin N) 12 unit Q8 SC Last administered on 05/02/17 06: 42; Admin Dose 12 UNIT; Start 05/01/17 at 14:00 Assessment/Plan Chief Complaint/Hosp Course Assessment 1. Patient admitted with mild pulmonary edema with COPD exacerbation with interval improvement. 2. End-stage renal disease, on hemodialysis. 3. Anemia. Questionable GI bleed with drop in hemoglobin noted. 4. Diabetes. With hyperglycemia secondary to systemic steroids. 5. History of DVT. 6. History of hypertension. Plan 1. Continue hemodialysis consider transfusion of packed red blood cells 2. Decrease steroids 3. Endoscopy scheduled for tomorrow. Long discussion with family at bedside. Problems: BROOKE MARIE MD, [facility] May 02, 2017 10:54
--- NOTE | 2017-05-02 11:38 | CONS ---
Date/Time of Note Date/Time of Note DATE: 05/02/17 TIME: 11:34 Assessment/Plan Assessment/Plan Additional Assessment/Plan Volume overload Acute kidney injury with history of CKD, started on hemodialysis Acute decompensated diastolic congestive heart failure Diabetes CAD with history of PCI over 10 years ago Hypertension Dyslipidemia History of DVT, previously on anticoagulation Acute blood loss anemia -Patient status post blood transfusion and hemodialysis yesterday with improvement in shortness of breath. Telemetry with episodes of Mobitz type I and denies symptoms of dizziness. Continue on telemetry monitoring. Anticoagulation as well as aspirin on hold secondary to worsening anemia and requiring blood transfusion. Continue statin therapy. Consultation Date/Type/Reason Admit Date/Time Apr 24, 2017 at 19:05 Initial Consult Date 04/27/17 Type of Consultation: cv Referring Provider: NANY PRIEST NP 24 HR Interval Summary Free Text/Dictation Patient feeling much better today. Denies shortness of breath or chest pain or dizziness. Exam/Review of Systems Vital Signs Vitals Vital Signs Date Time Temp Pulse Resp B/P Pulse Ox O2 Delivery O2 Flow Rate FiO2 05/02/17 09:05 4.0 05/02/17 08:00 69 05/02/17 07:58 97.4 18 134/63 97 05/01/17 17:19 Nasal Cannula Intake and Output 05/01/17 05/01/17 05/02/17 14:59 22:59 06:59 Intake Total 500 ml 1200 ml 400 ml Output Total 800 ml 2500 ml Balance -300 ml -1300 ml 400 ml Exam No apparent distress, sitting up Constitutional: alert, obese, oriented Head: normocephalic Respiratory: other (Coarse breath sounds bilaterally, no wheezing) Cardiovascular: other (S1-S2 heard), regular rate and rhythm Gastrointestinal: bowel sounds, non-tender, soft Extremities: edema Results Result Diagram: 05/02/17 0622 05/02/17 0622 Results 24 hrs Laboratory Tests Test 05/01/17 11:53 05/01/17 17:41 05/01/17 22:05 05/02/17 06:22 Bedside Glucose 185 262 H 139 White Blood Count 22.8 H Red Blood Count 2.42 #L Hemoglobin 7.5 #L Hematocrit 21.7 #L Mean Corpuscular Volume 89.7 Mean Corpuscular Hemoglobin 31.0 Mean Corpuscular Hemoglobin Concent 34.6 Red Cell Distribution Width 16.7 H Platelet Count 296 Mean Platelet Volume 12.9 H Neutrophils % 86.7 H Lymphocytes % 6.6 L Monocytes % 2.9 Eosinophils % 0.0 Basophils % 0.2 Nucleated Red Blood Cells % 1.1 H Neutrophils # 19.8 H Lymphocytes # 1.5 Monocytes # 0.7 Eosinophils # 0.0 Basophils # 0.1 Nucleated Red Blood Cells # 0.3 H Sodium Level 135 Potassium Level 4.9 Chloride Level 98 Carbon Dioxide Level 26 Anion Gap 16 Blood Urea Nitrogen 75 H Creatinine 4.21 H Glucose Level 240 H Calcium Level 8.5 Test 05/02/17 06:36 05/02/17 06:54 05/02/17 07:33 Bedside Glucose 278 H 323 H Lab Scanned Report BLOOD TRANSFUSION Medications Medications Current Medications Ondansetron HCl (Zofran Tab) 4 mg Q6H PRN PO NAUSEA AND/OR VOMITING; Start at 23:00 Nitroglycerin (Nitroglycerin (Sl Tab) 0.4 Mg) 1 tab Q5M PRN SL CHEST PAIN; Start 04/24/17 at 23:00 Docusate Sodium (Colace) 100 mg Q12H PRN PO CONSTIPATION; Start 04/24/17 at 23 :00 Bisacodyl (Dulcolax) 5 mg DAILY PRN PO CONSTIPATION; Start 04/24/17 at 23:00 Amlodipine Besylate (Norvasc) 5 mg DAILY PO Last administered on 05/02/17 08: 30; Admin Dose 5 MG; Start 04/25/17 at 09:00 Atorvastatin Calcium (Lipitor) 80 mg QHS PO Last administered on 05/01/17 23: 25; Admin Dose 80 MG; Start 04/25/17 at 21:00 Ergocalciferol (Drisdol) 50,000 unit Mo@09 PO Last administered on 04/29/17 17 :21; Admin Dose 50,000 UNIT; Start 04/24/17 at 23:00 Ferrous Sulfate (Ferrous Sulfate (Ec)) 325 mg DAILY PO Last administered on 08:29; Admin Dose 325 MG; Start 04/25/17 at 09:00 Multivit/Ca Carb/ B Cmplx/FA/Prenat (Isabel-Brenda) 1 tab DAILY PO Last administered on 05/02/17 08:30; Admin Dose 1 TAB; Start 04/25/17 at 09:00 Pantoprazole (Protonix Tab) 40 mg DAILY@06 PO Last administered on 05/02/17 06 :33; Admin Dose 40 MG; Start 04/25/17 at 06:00 Guaifenesin/ Dextromethorphan (Mucinex Dm) 1 tab BID PO Last administered on 08:29; Admin Dose 1 TAB; Start 04/25/17 at 03:15 Hydralazine HCl (Apresoline) 10 mg Q4H PRN IV ELEVATED BLOOD PRESSURE Last administered on 04/28/17 07:04; Admin Dose 10 MG; Start 04/25/17 at 03:30 Diagnostic Test (Pha) (Accu-Chek) 1 ea 02 XX Last administered on 05/01/17 02: 07; Admin Dose 1 EA; Start 04/26/17 at 02:00 Citric Acid/ Sodium Citrate (Bicitra) 30 ml TID PO Last administered on 08:39; Admin Dose 30 ML; Start 04/25/17 at 13:00 Aspirin (Aspirin) 81 mg DAILY PO Last administered on 04/30/17 10:05; Admin Dose 81 MG; Start 04/25/17 at 12:00; Status Future Hold Heparin Sodium (Porcine) (Heparin (5000 Units/0.5 ml)) 5,000 unit BID SC Last administered on 05/02/17 08:48; Admin Dose 5,000 UNIT; Start 04/26/17 at 09:00 Miscellaneous Information 1 ea NOTE XX Last administered on 04/30/17 17:45; Admin Dose 1 EA; Start 04/25/17 at 12:00 Glucose (Glutose) 15 gm Q15M PRN PO DECREASED GLUCOSE; Start 04/25/17 at 12:00 Glucose (Glutose) 22.5 gm Q15M PRN PO DECREASED GLUCOSE; Start 04/25/17 at 12: 00 Dextrose (D50w Syringe) 25 ml Q15M PRN IV DECREASED GLUCOSE; Start 04/25/17 at 12:00 Dextrose (D50w Syringe) 50 ml Q15M PRN IV DECREASED GLUCOSE; Start 04/25/17 at 12:00 Glucagon (Glucagen) 1 mg Q15M PRN IM DECREASED GLUCOSE; Start 04/25/17 at 12: 00 Glucose (Glutose) 15 gm Q15M PRN BUCCAL DECREASED GLUCOSE; Start 04/25/17 at 12:00 Furosemide (Lasix) 20 mg BID IV Last administered on 05/01/17 23:26; Admin Dose 20 MG; Start 04/26/17 at 09:00 Fish Oil (Fish Oil) 2,000 mg BID PO Last administered on 05/02/17 08:28; Admin Dose 2,000 MG; Start 04/27/17 at 21:00 EZETIMIBE (Zetia) 10 mg DAILY PO Last administered on 05/02/17 08:30; Admin Dose 10 MG; Start 04/28/17 at 09:00 Metoprolol Succinate (Toprol Xl) 25 mg DAILY PO Last administered on 05/02/17 08:29; Admin Dose 25 MG; Start 04/27/17 at 11:00 Morphine Sulfate (morphine) 2 mg Q4H PRN IV Pain Last administered on 10:24; Admin Dose 2 MG; Start 04/28/17 at 09:00 Linagliptin (Tradjenta) 5 mg DAILY PO Last administered on 05/02/17 08:29; Admin Dose 5 MG; Start 04/28/17 at 12:00 Tiotropium [place] (Spiriva) 1 inh DAILY INH Last administered on 05/02/17 08: 31; Admin Dose 1 INH; Start 04/30/17 at 13:30 Salmeterol Xinafoate/ Fluticasone (Advair 250/50 Diskus) 1 inh BID INH Last administered on 05/02/17 08:31; Admin Dose 1 INH; Start 04/30/17 at 21:00 Insulin Glargine (Lantus) 40 unit BID SC Last administered on 05/02/17 08:52; Admin Dose 40 UNIT; Start 05/01/17 at 21:00 Methylprednisolone Sodium Succinate (Solu-Medrol) 40 mg DAILY IV ; Start at 09:00 Insulin Human NPH (Humulin N) 12 unit Q8 SC ; Start 05/02/17 at 14:00; Status Dell Ramos DO May 02, 2017 11:38
[2017-05-02] MEDS ORDERED: INSULIN ASPART [NOVOLOG] 3 ML PEN SC SCH (11:50)
--- NOTE | 2017-05-02 13:22 | CONS ---
Date/Time of Note Date/Time of Note DATE: 05/02/17 TIME: 13:19 Assessment/Plan Assessment/Plan Chief Complaint/Hosp Course Pleasant [place] gentleman with his family present in the room reporting a 30 year history of diabetes mellitus type 2. He had been on oral agent therapy but as his kidneys declined he was transitioned over to a multiple daily injection regimen using Lantus and NovoLog. He intermittently takes full dose Januvia 100 mg despite his renal dysfunction Problems: (1) End stage renal disease on dialysis due to type 2 diabetes mellitus Status: Chronic Comment: Patient is receiving dialysis on a routine schedule. His diabetes is coming under control especially as were tapering off the steroids which were given for the lung disease. I will adjust the insulin regimen now. (2) Normocytic anemia Status: Acute Comment: This is quite concerning and he is required a lot of transfusions. Awaiting GI intervention and evaluation. (3) COPD (chronic obstructive pulmonary disease) Status: Chronic Comment: Stabilized on inhaler treatment. Qualifiers: COPD type: emphysema Emphysema type: unspecified Qualified Code: J43.9 - Pulmonary emphysema, unspecified emphysema type (4) Essential hypertension Status: Chronic Comment: Adequate control. (5) Diastolic dysfunction Status: Chronic Comment: Noted and stable. Please note he does have some excess fluid after all of his transfusions I will give him a single dose of metolazone to try and hold him over until he gets dialyzed (6) Hepatitis C antibody positive in blood Status: Acute Comment: To be treated as an outpatient. (7) Hyperlipidemia associated with type 2 diabetes mellitus Status: Chronic Comment: Continue statin therapy. Consultation Date/Type/Reason Admit Date/Time Apr 24, 2017 at 19:05 Initial Consult Date 04/27/17 Type of Consultation: Endocrinology Reason for Consultation Diabetes mellitus type 2 on multiple daily injection with end-stage renal disease; retinopathy; peripheral neuropathy Please note severe anemia Referring Provider: NANY PRIEST NP 24 HR Interval Summary Free Text/Dictation Patient reports he is feeling better in terms of his breathing and after transfusion. Constitutional: no complaints Detailed Summary Respiratory: other (Improved) Cardiovascular: no complaints Gastrointestinal: no complaints Exam/Review of Systems Vital Signs Vitals Vital Signs Date Time Temp Pulse Resp B/P Pulse Ox O2 Delivery O2 Flow Rate FiO2 05/02/17 12:00 97.5 68 21 147/67 92 05/02/17 09:05 4.0 05/01/17 17:19 Nasal Cannula Intake and Output 05/01/17 05/01/17 05/02/17 14:59 22:59 06:59 Intake Total 500 ml 1200 ml 400 ml Output Total 800 ml 2500 ml Balance -300 ml -1300 ml 400 ml Exam Constitutional: alert, oriented Respiratory: clear to auscultation, diminished breath sounds, other (Increased AP diameter decreased I:E ratio) Cardiovascular: nl pulses, regular rate and rhythm Gastrointestinal: nl liver, spleen, non-tender, soft Results Result Diagram: 05/02/1762105/02/17621 Results 24 hrs Laboratory Tests Test 05/01/17 17:41 05/01/17 22:05 05/02/17 06:22 05/02/17 06:36 Bedside Glucose 262 H 139 278 H White Blood Count 22.8 H Red Blood Count 2.42 #L Hemoglobin 7.5 #L Hematocrit 21.7 #L Mean Corpuscular Volume 89.7 Mean Corpuscular Hemoglobin 31.0 Mean Corpuscular Hemoglobin Concent 34.6 Red Cell Distribution Width 16.7 H Platelet Count 296 Mean Platelet Volume 12.9 H Neutrophils % 86.7 H Lymphocytes % 6.6 L Monocytes % 2.9 Eosinophils % 0.0 Basophils % 0.2 Nucleated Red Blood Cells % 1.1 H Neutrophils # 19.8 H Lymphocytes # 1.5 Monocytes # 0.7 Eosinophils # 0.0 Basophils # 0.1 Nucleated Red Blood Cells # 0.3 H Sodium Level 135 Potassium Level 4.9 Chloride Level 98 Carbon Dioxide Level 26 Anion Gap 16 Blood Urea Nitrogen 75 H Creatinine 4.21 H Glucose Level 240 H Calcium Level 8.5 Test 05/02/17 06:54 05/02/17 07:33 05/02/17 11:52 Lab Scanned Report BLOOD TRANSFUSION Bedside Glucose 323 H 185 Medications Medications Current Medications Ondansetron HCl (Zofran Tab) 4 mg Q6H PRN PO NAUSEA AND/OR VOMITING; Start at 23:00 Nitroglycerin (Nitroglycerin (Sl Tab) 0.4 Mg) 1 tab Q5M PRN SL CHEST PAIN; Start 04/24/17 at 23:00 Docusate Sodium (Colace) 100 mg Q12H PRN PO CONSTIPATION; Start 04/24/17 at 23 :00 Bisacodyl (Dulcolax) 5 mg DAILY PRN PO CONSTIPATION; Start 04/24/17 at 23:00 Amlodipine Besylate (Norvasc) 5 mg DAILY PO Last administered on 05/02/17 08: 30; Admin Dose 5 MG; Start 04/25/17 at 09:00 Atorvastatin Calcium (Lipitor) 80 mg QHS PO Last administered on 05/01/17 23: 25; Admin Dose 80 MG; Start 04/25/17 at 21:00 Ergocalciferol (Drisdol) 50,000 unit Mo@09 PO Last administered on 04/29/17 17 :21; Admin Dose 50,000 UNIT; Start 04/24/17 at 23:00 Ferrous Sulfate (Ferrous Sulfate (Ec)) 325 mg DAILY PO Last administered on 08:29; Admin Dose 325 MG; Start 04/25/17 at 09:00 Multivit/Ca Carb/ B Cmplx/FA/Prenat (Isabel-Brenda) 1 tab DAILY PO Last administered on 05/02/17 08:30; Admin Dose 1 TAB; Start 04/25/17 at 09:00 Pantoprazole (Protonix Tab) 40 mg DAILY@06 PO Last administered on 05/02/17 06 :33; Admin Dose 40 MG; Start 04/25/17 at 06:00 Guaifenesin/ Dextromethorphan (Mucinex Dm) 1 tab BID PO Last administered on 08:29; Admin Dose 1 TAB; Start 04/25/17 at 03:15 Hydralazine HCl (Apresoline) 10 mg Q4H PRN IV ELEVATED BLOOD PRESSURE Last administered on 04/28/17 07:04; Admin Dose 10 MG; Start 04/25/17 at 03:30 Diagnostic Test (Pha) (Accu-Chek) 1 ea 02 XX Last administered on 05/01/17 02: 07; Admin Dose 1 EA; Start 04/26/17 at 02:00 Citric Acid/ Sodium Citrate (Bicitra) 30 ml TID PO Last administered on 08:39; Admin Dose 30 ML; Start 04/25/17 at 13:00 Aspirin (Aspirin) 81 mg DAILY PO Last administered on 04/30/17 10:05; Admin Dose 81 MG; Start 04/25/17 at 12:00; Status Future Hold Heparin Sodium (Porcine) (Heparin (5000 Units/0.5 ml)) 5,000 unit BID SC Last administered on 05/02/17 08:48; Admin Dose 5,000 UNIT; Start 04/26/17 at 09:00 Miscellaneous Information 1 ea NOTE XX Last administered on 04/30/17 17:45; Admin Dose 1 EA; Start 04/25/17 at 12:00 Glucose (Glutose) 15 gm Q15M PRN PO DECREASED GLUCOSE; Start 04/25/17 at 12:00 Glucose (Glutose) 22.5 gm Q15M PRN PO DECREASED GLUCOSE; Start 04/25/17 at 12: 00 Dextrose (D50w Syringe) 25 ml Q15M PRN IV DECREASED GLUCOSE; Start 04/25/17 at 12:00 Dextrose (D50w Syringe) 50 ml Q15M PRN IV DECREASED GLUCOSE; Start 04/25/17 at 12:00 Glucagon (Glucagen) 1 mg Q15M PRN IM DECREASED GLUCOSE; Start 04/25/17 at 12: 00 Glucose (Glutose) 15 gm Q15M PRN BUCCAL DECREASED GLUCOSE; Start 04/25/17 at 12:00 Furosemide (Lasix) 20 mg BID IV Last administered on 05/01/17 23:26; Admin Dose 20 MG; Start 04/26/17 at 09:00 Fish Oil (Fish Oil) 2,000 mg BID PO Last administered on 05/02/17 08:28; Admin Dose 2,000 MG; Start 04/27/17 at 21:00 EZETIMIBE (Zetia) 10 mg DAILY PO Last administered on 05/02/17 08:30; Admin Dose 10 MG; Start 04/28/17 at 09:00 Metoprolol Succinate (Toprol Xl) 25 mg DAILY PO Last administered on 05/02/17 08:29; Admin Dose 25 MG; Start 04/27/17 at 11:00 Morphine Sulfate (morphine) 2 mg Q4H PRN IV Pain Last administered on 10:24; Admin Dose 2 MG; Start 04/28/17 at 09:00 Linagliptin (Tradjenta) 5 mg DAILY PO Last administered on 05/02/17 08:29; Admin Dose 5 MG; Start 04/28/17 at 12:00 Tiotropium [place] (Spiriva) 1 inh DAILY INH Last administered on 05/02/17 08: 31; Admin Dose 1 INH; Start 04/30/17 at 13:30 Salmeterol Xinafoate/ Fluticasone (Advair 250/50 Diskus) 1 inh BID INH Last administered on 05/02/17 08:31; Admin Dose 1 INH; Start 04/30/17 at 21:00 Insulin Glargine (Lantus) 40 unit BID SC Last administered on 05/02/17 08:52; Admin Dose 40 UNIT; Start 05/01/17 at 21:00 Methylprednisolone Sodium Succinate (Solu-Medrol) 40 mg DAILY IV ; Start at 09:00 Insulin Human NPH (Humulin N) 12 unit Q8 SC ; Start 05/02/17 at 14:00 MARA GRAYSON MD May 02, 2017 13:22
--- NOTE | 2017-05-02 13:25 | CONS ---
Date/Time of Note Date/Time of Note DATE: 05/02/17 TIME: 13:24 Assessment/Plan Assessment/Plan Chief Complaint/Hosp Course SUBJECTIVE: No acute changes. The patient is alert, feels better, looks comfortable, no fevers. PHYSICAL EXAMINATION: GENERAL: This is a fragile well-developed elderly man who is awake, in no distress. HEENT: Head atraumatic, normocephalic. Sclerae anicteric. Buccal mucosa dry. NECK: Supple. CHEST: Rise symmetrical. Breath sounds with scattered crackles and expiratory wheezes. HEART: S1, S2. ABDOMEN: Soft, bowel tones present. EXTREMITIES: Without cyanosis. ASSESSMENT: 1. Systemic inflammatory response syndrome with ongoing leukocytosis, on steroids. 2. Acute chronic obstructive pulmonary disease exacerbation==> s/p Cefepime. 3. Pulmonary edema. 4. End-stage renal disease, now on hemodialysis. 5. Diabetes. 6. History of coronary artery bypass graft. 7. Hypertension. PLAN: The patient remains stable. Continue present care, pulmonary/card/renal rec-s, centeno cx prn DW family at bedside DW staff Problems: Consultation Date/Type/Reason Admit Date/Time Apr 24, 2017 at 19:05 Initial Consult Date 04/27/17 Type of Consultation: ID Referring Provider: NANY PRIEST PUPPET ENGINEER Exam/Review of Systems Vital Signs Vitals Vital Signs Date Time Temp Pulse Resp B/P Pulse Ox O2 Delivery O2 Flow Rate FiO2 05/02/17 12:00 97.5 68 21 147/67 92 05/02/17 09:05 4.0 05/01/17 17:19 Nasal Cannula Intake and Output 05/01/17 05/01/17 05/02/17 15:00 23:00 07:00 Intake Total 500 ml 1200 ml 400 ml Output Total 800 ml 2500 ml Balance -300 ml -1300 ml 400 ml Results Result Diagram: 05/02/17 0622 05/02/17 0622 Results 24 hrs Laboratory Tests Test 05/01/17 17:41 05/01/17 22:05 05/02/17 06:22 05/02/17 06:36 Bedside Glucose 262 H 139 278 H White Blood Count 22.8 H Red Blood Count 2.42 #L Hemoglobin 7.5 #L Hematocrit 21.7 #L Mean Corpuscular Volume 89.7 Mean Corpuscular Hemoglobin 31.0 Mean Corpuscular Hemoglobin Concent 34.6 Red Cell Distribution Width 16.7 H Platelet Count 296 Mean Platelet Volume 12.9 H Neutrophils % 86.7 H Lymphocytes % 6.6 L Monocytes % 2.9 Eosinophils % 0.0 Basophils % 0.2 Nucleated Red Blood Cells % 1.1 H Neutrophils # 19.8 H Lymphocytes # 1.5 Monocytes # 0.7 Eosinophils # 0.0 Basophils # 0.1 Nucleated Red Blood Cells # 0.3 H Sodium Level 135 Potassium Level 4.9 Chloride Level 98 Carbon Dioxide Level 26 Anion Gap 16 Blood Urea Nitrogen 75 H Creatinine 4.21 H Glucose Level 240 H Calcium Level 8.5 Test 05/02/17 06:54 05/02/17 07:33 05/02/17 11:52 Lab Scanned Report BLOOD TRANSFUSION Bedside Glucose 323 H 185 Medications Medications Current Medications Ondansetron HCl (Zofran Tab) 4 mg Q6H PRN PO NAUSEA AND/OR VOMITING; Start at 23:00 Nitroglycerin (Nitroglycerin (Sl Tab) 0.4 Mg) 1 tab Q5M PRN SL CHEST PAIN; Start 04/24/17 at 23:00 Docusate Sodium (Colace) 100 mg Q12H PRN PO CONSTIPATION; Start 04/24/17 at 23 :00 Bisacodyl (Dulcolax) 5 mg DAILY PRN PO CONSTIPATION; Start 04/24/17 at 23:00 Amlodipine Besylate (Norvasc) 5 mg DAILY PO Last administered on 05/02/17 08: 30; Admin Dose 5 MG; Start 04/25/17 at 09:00 Atorvastatin Calcium (Lipitor) 80 mg QHS PO Last administered on 05/01/17 23: 25; Admin Dose 80 MG; Start 04/25/17 at 21:00 Ergocalciferol (Drisdol) 50,000 unit Mo@09 PO Last administered on 04/29/17 17 :21; Admin Dose 50,000 UNIT; Start 04/24/17 at 23:00 Ferrous Sulfate (Ferrous Sulfate (Ec)) 325 mg DAILY PO Last administered on 08:29; Admin Dose 325 MG; Start 04/25/17 at 09:00 Multivit/Ca Carb/ B Cmplx/FA/Prenat (Isabel-Brenda) 1 tab DAILY PO Last administered on 05/02/17 08:30; Admin Dose 1 TAB; Start 04/25/17 at 09:00 Pantoprazole (Protonix Tab) 40 mg DAILY@06 PO Last administered on 05/02/17 06 :33; Admin Dose 40 MG; Start 04/25/17 at 06:00 Guaifenesin/ Dextromethorphan (Mucinex Dm) 1 tab BID PO Last administered on 08:29; Admin Dose 1 TAB; Start 04/25/17 at 03:15 Hydralazine HCl (Apresoline) 10 mg Q4H PRN IV ELEVATED BLOOD PRESSURE Last administered on 04/28/17 07:04; Admin Dose 10 MG; Start 04/25/17 at 03:30 Diagnostic Test (Pha) (Accu-Chek) 1 ea 02 XX Last administered on 05/01/17 02: 07; Admin Dose 1 EA; Start 04/26/17 at 02:00 Citric Acid/ Sodium Citrate (Bicitra) 30 ml TID PO Last administered on 08:39; Admin Dose 30 ML; Start 04/25/17 at 13:00 Aspirin (Aspirin) 81 mg DAILY PO Last administered on 04/30/17 10:05; Admin Dose 81 MG; Start 04/25/17 at 12:00; Status Future Hold Heparin Sodium (Porcine) (Heparin (5000 Units/0.5 ml)) 5,000 unit BID SC Last administered on 05/02/17 08:48; Admin Dose 5,000 UNIT; Start 04/26/17 at 09:00 Miscellaneous Information 1 ea NOTE XX Last administered on 04/30/17 17:45; Admin Dose 1 EA; Start 04/25/17 at 12:00 Glucose (Glutose) 15 gm Q15M PRN PO DECREASED GLUCOSE; Start 04/25/17 at 12:00 Glucose (Glutose) 22.5 gm Q15M PRN PO DECREASED GLUCOSE; Start 04/25/17 at 12: 00 Dextrose (D50w Syringe) 25 ml Q15M PRN IV DECREASED GLUCOSE; Start 04/25/17 at 12:00 Dextrose (D50w Syringe) 50 ml Q15M PRN IV DECREASED GLUCOSE; Start 04/25/17 at 12:00 Glucagon (Glucagen) 1 mg Q15M PRN IM DECREASED GLUCOSE; Start 04/25/17 at 12: 00 Glucose (Glutose) 15 gm Q15M PRN BUCCAL DECREASED GLUCOSE; Start 04/25/17 at 12:00 Furosemide (Lasix) 20 mg BID IV Last administered on 05/01/17 23:26; Admin Dose 20 MG; Start 04/26/17 at 09:00 Fish Oil (Fish Oil) 2,000 mg BID PO Last administered on 05/02/17 08:28; Admin Dose 2,000 MG; Start 04/27/17 at 21:00 EZETIMIBE (Zetia) 10 mg DAILY PO Last administered on 05/02/17 08:30; Admin Dose 10 MG; Start 04/28/17 at 09:00 Metoprolol Succinate (Toprol Xl) 25 mg DAILY PO Last administered on 05/02/17 08:29; Admin Dose 25 MG; Start 04/27/17 at 11:00 Morphine Sulfate (morphine) 2 mg Q4H PRN IV Pain Last administered on 10:24; Admin Dose 2 MG; Start 04/28/17 at 09:00 Linagliptin (Tradjenta) 5 mg DAILY PO Last administered on 05/02/17 08:29; Admin Dose 5 MG; Start 04/28/17 at 12:00 Tiotropium [place] (Spiriva) 1 inh DAILY INH Last administered on 05/02/17 08: 31; Admin Dose 1 INH; Start 04/30/17 at 13:30 Salmeterol Xinafoate/ Fluticasone (Advair 250/50 Diskus) 1 inh BID INH Last administered on 05/02/17 08:31; Admin Dose 1 INH; Start 04/30/17 at 21:00 Insulin Glargine (Lantus) 40 unit BID SC Last administered on 05/02/17 08:52; Admin Dose 40 UNIT; Start 05/01/17 at 21:00 Metolazone (Zaroxolyn) 5 mg ONCE ONCE PO ; Start 05/02/17 at 13:30; Stop at 13:31 MARIELA BANGURA NP May 02, 2017 13:25
[2017-05-02] MEDS ORDERED: METOLAZONE 5 MG TAB PO ONE (13:30)
[2017-05-02] MEDS ORDERED: NPH, HUMAN INSULIN ISOPHANE 3ML VIAL SC SCH ×2 (14:00)
--- NOTE | 2017-05-02 14:30 | PN ---
Date/Time of Note Date/Time of Note DATE: 05/02/17 TIME: 14:25 Assessment/Plan VTE Prophylaxis VTE Prophylaxis Intervention: heparin Lines/Catheters IV [facility] JAMIL CATH Urinary Cath still in place: No Assessment/Plan Chief Complaint/Hosp Course Assessment and plan 1. Acute respiratory failure. Secondary to fluid overload. Continue on breathing tx and oxygen. Titrate down as tolerated. Improving. Continue dialysis 2. Non-ST elevated myocardial infarction suspect type II event considering underlying worsening renal function. Continue on antiplatelet therapy. Data Center Architect following. Continue recommendations. 3. Gram-positive bacteremia. Suspect contaminant. ID consult is following. Antibiotic regimen per ID consult. WBC downward trending. 4. Acute on chronic CHF with diastolic dysfunction. Continue on cardiovascular medications. Continue dialysis. Improving 5. Pulmonary hypertension. Noted with PA systolic pressure of 44 mmHg. Continue on O2. 6. CAD. Patient is status post PTCA in the past. Continue on antiplatelet therapy. 7. Metabolic acidosis secondary to worsening renal function. Continue on Bicitra per lockstitch sleeve maker. 8. Dyslipidemia. Continue on statin medication. 9. Diabetes. Continue on insulin regimen. Adjust as needed. 10. Essential hypertension continue antihypertensives and adjust needed. 11. Left popliteal vein DVT. Patient did have prior history of DVT in the lower extremities and was taking Xarelto at home. Discontinued now due to worsening renal function. Follow-up with vascular surgeon noy. 12. Acute on chronic kidney disease. HD per nephrology Disposition and plan: Tentative plan for colonoscopy. Anemia improved. Continue dialysis. Will get physical therapy. Discussed plan of care with Dr. York Problems: Subjective 24 Hr Interval Summary Free Text/Dictation Sitting on chair. Reports better breathing. Appears in better spirits. Family at bedside. Exam/Review of Systems Vital Signs Vitals Vital Signs Date Time Temp Pulse Resp B/P Pulse Ox O2 Delivery O2 Flow Rate FiO2 05/02/17 12:00 97.5 68 21 147/67 92 05/02/17 09:05 4.0 05/01/17 17:19 Nasal Cannula Intake and Output 05/01/17 05/01/17 05/02/17 15:00 23:00 07:00 Intake Total 500 ml 1200 ml 400 ml Output Total 800 ml 2500 ml Balance -300 ml -1300 ml 400 ml Exam Constitutional: alert, oriented. No signs of distress Head: normocephalic Eyes: nl conjunctiva Neck: non-tender, supple Respiratory: other less congested on right lung field. Cardiovascular: other (Regular rate) Musculoskeletal: swelling (Bilateral lower extremities) 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: STOCK CHASER II-XII intact, nl mental status, nl speech Results Result Diagram: 05/02/17 0622 05/02/17 0622 Results 24 hrs Laboratory Tests Test 05/01/17 17:41 05/01/17 22:05 05/02/17 06:22 05/02/17 06:36 Bedside Glucose 262 H 139 278 H White Blood Count 22.8 H Red Blood Count 2.42 #L Hemoglobin 7.5 #L Hematocrit 21.7 #L Mean Corpuscular Volume 89.7 Mean Corpuscular Hemoglobin 31.0 Mean Corpuscular Hemoglobin Concent 34.6 Red Cell Distribution Width 16.7 H Platelet Count 296 Mean Platelet Volume 12.9 H Neutrophils % 86.7 H Lymphocytes % 6.6 L Monocytes % 2.9 Eosinophils % 0.0 Basophils % 0.2 Nucleated Red Blood Cells % 1.1 H Neutrophils # 19.8 H Lymphocytes # 1.5 Monocytes # 0.7 Eosinophils # 0.0 Basophils # 0.1 Nucleated Red Blood Cells # 0.3 H Sodium Level 135 Potassium Level 4.9 Chloride Level 98 Carbon Dioxide Level 26 Anion Gap 16 Blood Urea Nitrogen 75 H Creatinine 4.21 H Glucose Level 240 H Calcium Level 8.5 Test 05/02/17 06:54 05/02/17 07:33 05/02/17 11:52 Lab Scanned Report BLOOD TRANSFUSION Bedside Glucose 323 H 185 Medications Medications Current Medications Ondansetron HCl (Zofran Tab) 4 mg Q6H PRN PO NAUSEA AND/OR VOMITING; Start at 23:00 Nitroglycerin (Nitroglycerin (Sl Tab) 0.4 Mg) 1 tab Q5M PRN SL CHEST PAIN; Start 04/24/17 at 23:00 Docusate Sodium (Colace) 100 mg Q12H PRN PO CONSTIPATION; Start 04/24/17 at 23 :00 Bisacodyl (Dulcolax) 5 mg DAILY PRN PO CONSTIPATION; Start 04/24/17 at 23:00 Amlodipine Besylate (Norvasc) 5 mg DAILY PO Last administered on 05/02/17t 08: 30; Admin Dose 5 MG; Start 04/25/17 at 09:00 Atorvastatin Calcium (Lipitor) 80 mg QHS PO Last administered on 05/01/17 23: 25; Admin Dose 80 MG; Start 04/25/17 at 21:00 Ergocalciferol (Drisdol) 50,000 unit Mo@09 PO Last administered on 04/29/17 17 :21; Admin Dose 50,000 UNIT; Start 04/24/17 at 23:00 Ferrous Sulfate (Ferrous Sulfate (Ec)) 325 mg DAILY PO Last administered on 08:29; Admin Dose 325 MG; Start 04/25/17 at 09:00 Multivit/Ca Carb/ B Cmplx/FA/Prenat (Isabel-Brenda) 1 tab DAILY PO Last administered on 05/02/17 08:30; Admin Dose 1 TAB; Start 04/25/17 at 09:00 Pantoprazole (Protonix Tab) 40 mg DAILY@06 PO Last administered on 05/02/17 06 :33; Admin Dose 40 MG; Start 04/25/17 at 06:00 Guaifenesin/ Dextromethorphan (Mucinex Dm) 1 tab BID PO Last administered on 08:29; Admin Dose 1 TAB; Start 04/25/17 at 03:15 Hydralazine HCl (Apresoline) 10 mg Q4H PRN IV ELEVATED BLOOD PRESSURE Last administered on 04/28/17 07:04; Admin Dose 10 MG; Start 04/25/17 at 03:30 Diagnostic Test (Pha) (Accu-Chek) 1 ea 02 XX Last administered on 05/01/17 02: 07; Admin Dose 1 EA; Start 04/26/17 at 02:00 Citric Acid/ Sodium Citrate (Bicitra) 30 ml TID PO Last administered on 13:57; Admin Dose 30 ML; Start 04/25/17 at 13:00 Aspirin (Aspirin) 81 mg DAILY PO Last administered on 04/30/17 10:05; Admin Dose 81 MG; Start 04/25/17 at 12:00; Status Future Hold Heparin Sodium (Porcine) (Heparin (5000 Units/0.5 ml)) 5,000 unit BID SC Last administered on 05/02/17 08:48; Admin Dose 5,000 UNIT; Start 04/26/17 at 09:00 Miscellaneous Information 1 ea NOTE XX Last administered on 04/30/17 17:45; Admin Dose 1 EA; Start 04/25/17 at 12:00 Glucose (Glutose) 15 gm Q15M PRN PO DECREASED GLUCOSE; Start 04/25/17 at 12:00 Glucose (Glutose) 22.5 gm Q15M PRN PO DECREASED GLUCOSE; Start 04/25/17 at 12: 00 Dextrose (D50w Syringe) 25 ml Q15M PRN IV DECREASED GLUCOSE; Start 04/25/17 at 12:00 Dextrose (D50w Syringe) 50 ml Q15M PRN IV DECREASED GLUCOSE; Start 04/25/17 at 12:00 Glucagon (Glucagen) 1 mg Q15M PRN IM DECREASED GLUCOSE; Start 04/25/17 at 12: 00 Glucose (Glutose) 15 gm Q15M PRN BUCCAL DECREASED GLUCOSE; Start 04/25/17 at 12:00 Furosemide (Lasix) 20 mg BID IV Last administered on 05/01/17 23:26; Admin Dose 20 MG; Start 04/26/17 at 09:00 Fish Oil (Fish Oil) 2,000 mg BID PO Last administered on 05/02/17 08:28; Admin Dose 2,000 MG; Start 04/27/17 at 21:00 EZETIMIBE (Zetia) 10 mg DAILY PO Last administered on 05/02/17 08:30; Admin Dose 10 MG; Start 04/28/17 at 09:00 Metoprolol Succinate (Toprol Xl) 25 mg DAILY PO Last administered on 05/02/17 08:29; Admin Dose 25 MG; Start 04/27/17 at 11:00 Morphine Sulfate (morphine) 2 mg Q4H PRN IV Pain Last administered on 10:24; Admin Dose 2 MG; Start 04/28/17 at 09:00 Linagliptin (Tradjenta) 5 mg DAILY PO Last administered on 05/02/17 08:29; Admin Dose 5 MG; Start 04/28/17 at 12:00 Tiotropium [place] (Spiriva) 1 inh DAILY INH Last administered on 05/02/17 08: 31; Admin Dose 1 INH; Start 04/30/17 at 13:30 Salmeterol Xinafoate/ Fluticasone (Advair 250/50 Diskus) 1 inh BID INH Last administered on 05/02/17 08:31; Admin Dose 1 INH; Start 04/30/17 at 21:00 Insulin Glargine (Lantus) 40 unit BID SC Last administered on 05/02/17 08:52; Admin Dose 40 UNIT; Start 05/01/17 at 21:00 PERRY JUAREZ May 02, 2017 14:30 PERRY JUAREZ May 02, 2017 14:30
--- NOTE | 2017-05-02 16:03 | PN ---
Date/Time of Note Date/Time of Note DATE: 05/02/17 TIME: 15:54 Assessment/Plan VTE Prophylaxis VTE Prophylaxis Intervention: ambulation Lines/Catheters [facility] JAMIL CATH Urinary Cath still in place: No Assessment/Plan Chief Complaint/Hosp Course Assessment: Anemia rule out GI bleed End-stage renal disease on dialysis Hypertension Diabetes type 2 Dyslipidemia Coronary artery disease Pulmonary edema Plan: EGD and colonoscopy on Saturday to rule out GI bleed Close monitoring of H&H Transfuse for hemoglobin less than 7.5 Patient needs permanent dialysis fistula access Consultation performed in collaboration with Subjective: Patient reports feeling better after dialysis yesterday. No transfusions since yesterday. Denies abdominal pain. Explained the plan of treatment and scheduled procedure to the and daughter. All laboratory values have been reviewed. Current Hgb is 7.5. Will recheck tomorrow and transfuse if needed prior to the procedure. Discussed the plan with the nursing staff. PHYSICAL EXAMINATION: GENERAL: Well developed, obese, well nourished, alert & oriented x 3, in no acute distress SKIN: No lesions, pale, no stigmata chronic liver disease, no evidence of bleeding diathesis LYMPHATIC: No palpable lymphadenopathy. HEAD: Normocephalic, atraumatic, no tenderness. EYES: Pupils equal reactive to light and accommodation, full extraocular movements, sclera clear, non-icteric, no discharge. EARS/NOSE AND THROAT: Ears normal, nose normal, oropharynx normal, oral membranes well hydrated without lesions. NECK: Supple, no masses, thyroid normal, JVP within normal limits, carotids normal without bruits. CHEST: Inspection within normal limits. CARDIOVASCULAR: Heart: Regular rate and rhythm, no murmurs, gallops or rubs. Peripheral pulses present within normal limits, no cyanosis, clubbing or edemas. No pulsatile abdominal mass RESPIRATORY: Lungs clear to auscultation and percussion, no wheezing, no rubs GASTROINTESTINAL AND LIVER: Abdomen: Soft, obese, non tenderness, non-distended , no hernias, no masses, no organomegaly, no ascites, no guarding, no rebound tenderness, normoactive bowel sounds. Rectal: Deferred. GENITOURINARY: Male genitalia within normal limits. EXTREMITIES: No cyanosis, clubbing or edema. Problems: Exam/Review of Systems Vital Signs Vitals Vital Signs Date Time Temp Pulse Resp B/P Pulse Ox O2 Delivery O2 Flow Rate FiO2 05/02/17 15:45 97.0 70 22 152/69 95 05/02/17 12:00 2.0 05/01/17 17:19 Nasal Cannula Intake and Output 05/01/17 05/01/17 05/02/17 15:00 23:00 07:00 Intake Total 500 ml 1200 ml 400 ml Output Total 800 ml 2500 ml Balance -300 ml -1300 ml 400 ml Results Result Diagram: 05/02/17 0622 05/02/17 0622 Results 24 hrs Laboratory Tests Test 05/01/17 17:41 05/01/17 22:05 05/02/17 06:22 05/02/17 06:36 Bedside Glucose 262 H 139 278 H White Blood Count 22.8 H Red Blood Count 2.42 #L Hemoglobin 7.5 #L Hematocrit 21.7 #L Mean Corpuscular Volume 89.7 Mean Corpuscular Hemoglobin 31.0 Mean Corpuscular Hemoglobin Concent 34.6 Red Cell Distribution Width 16.7 H Platelet Count 296 Mean Platelet Volume 12.9 H Neutrophils % 86.7 H Lymphocytes % 6.6 L Monocytes % 2.9 Eosinophils % 0.0 Basophils % 0.2 Nucleated Red Blood Cells % 1.1 H Neutrophils # 19.8 H Lymphocytes # 1.5 Monocytes # 0.7 Eosinophils # 0.0 Basophils # 0.1 Nucleated Red Blood Cells # 0.3 H Sodium Level 135 Potassium Level 4.9 Chloride Level 98 Carbon Dioxide Level 26 Anion Gap 16 Blood Urea Nitrogen 75 H Creatinine 4.21 H Glucose Level 240 H Calcium Level 8.5 Test 05/02/17 06:54 05/02/17 07:33 05/02/17 11:52 Lab Scanned Report BLOOD TRANSFUSION Bedside Glucose 323 H 185 Medications Medications Current Medications Ondansetron HCl (Zofran Tab) 4 mg Q6H PRN PO NAUSEA AND/OR VOMITING; Start at 23:00 Nitroglycerin (Nitroglycerin (Sl Tab) 0.4 Mg) 1 tab Q5M PRN SL CHEST PAIN; Start 04/24/17 at 23:00 Docusate Sodium (Colace) 100 mg Q12H PRN PO CONSTIPATION; Start 04/24/17 at 23 :00 Bisacodyl (Dulcolax) 5 mg DAILY PRN PO CONSTIPATION; Start 04/24/17 at 23:00 Amlodipine Besylate (Norvasc) 5 mg DAILY PO Last administered on 05/02/17 08: 30; Admin Dose 5 MG; Start 04/25/17 at 09:00 Atorvastatin Calcium (Lipitor) 80 mg QHS PO Last administered on 05/01/17 23: 25; Admin Dose 80 MG; Start 04/25/17 at 21:00 Ergocalciferol (Drisdol) 50,000 unit Mo@09 PO Last administered on 04/29/17 17 :21; Admin Dose 50,000 UNIT; Start 04/24/17 at 23:00 Ferrous Sulfate (Ferrous Sulfate (Ec)) 325 mg DAILY PO Last administered on 08:29; Admin Dose 325 MG; Start 04/25/17 at 09:00 Multivit/Ca Carb/ B Cmplx/FA/Prenat (Isabel-Brenda) 1 tab DAILY PO Last administered on 05/02/17 08:30; Admin Dose 1 TAB; Start 04/25/17 at 09:00 Pantoprazole (Protonix Tab) 40 mg DAILY@06 PO Last administered on 05/02/17 06 :33; Admin Dose 40 MG; Start 04/25/17 at 06:00 Guaifenesin/ Dextromethorphan (Mucinex Dm) 1 tab BID PO Last administered on 08:29; Admin Dose 1 TAB; Start 04/25/17 at 03:15 Hydralazine HCl (Apresoline) 10 mg Q4H PRN IV ELEVATED BLOOD PRESSURE Last administered on 04/28/17 07:04; Admin Dose 10 MG; Start 04/25/17 at 03:30 Diagnostic Test (Pha) (Accu-Chek) 1 ea 02 XX Last administered on 05/01/17 02: 07; Admin Dose 1 EA; Start 04/26/17 at 02:00 Citric Acid/ Sodium Citrate (Bicitra) 30 ml TID PO Last administered on 13:57; Admin Dose 30 ML; Start 04/25/17 at 13:00 Aspirin (Aspirin) 81 mg DAILY PO Last administered on 04/30/17 10:05; Admin Dose 81 MG; Start 04/25/17 at 12:00; Status Future Hold Heparin Sodium (Porcine) (Heparin (5000 Units/0.5 ml)) 5,000 unit BID SC Last administered on 05/02/17 08:48; Admin Dose 5,000 UNIT; Start 04/26/17 at 09:00 Miscellaneous Information 1 ea NOTE XX Last administered on 04/30/17 17:45; Admin Dose 1 EA; Start 04/25/17 at 12:00 Glucose (Glutose) 15 gm Q15M PRN PO DECREASED GLUCOSE; Start 04/25/17 at 12:00 Glucose (Glutose) 22.5 gm Q15M PRN PO DECREASED GLUCOSE; Start 04/25/17 at 12: 00 Dextrose (D50w Syringe) 25 ml Q15M PRN IV DECREASED GLUCOSE; Start 04/25/17 at 12:00 Dextrose (D50w Syringe) 50 ml Q15M PRN IV DECREASED GLUCOSE; Start 04/25/17 at 12:00 Glucagon (Glucagen) 1 mg Q15M PRN IM DECREASED GLUCOSE; Start 04/25/17 at 12: 00 Glucose (Glutose) 15 gm Q15M PRN BUCCAL DECREASED GLUCOSE; Start 04/25/17 at 12:00 Furosemide (Lasix) 20 mg BID IV Last administered on 05/01/17 23:26; Admin Dose 20 MG; Start 04/26/17 at 09:00 Fish Oil (Fish Oil) 2,000 mg BID PO Last administered on 05/02/17 08:28; Admin Dose 2,000 MG; Start 04/27/17 at 21:00 EZETIMIBE (Zetia) 10 mg DAILY PO Last administered on 05/02/17 08:30; Admin Dose 10 MG; Start 04/28/17 at 09:00 Metoprolol Succinate (Toprol Xl) 25 mg DAILY PO Last administered on 05/02/17 08:29; Admin Dose 25 MG; Start 04/27/17 at 11:00 Morphine Sulfate (morphine) 2 mg Q4H PRN IV Pain Last administered on 10:24; Admin Dose 2 MG; Start 04/28/17 at 09:00 Linagliptin (Tradjenta) 5 mg DAILY PO Last administered on 05/02/17 08:29; Admin Dose 5 MG; Start 04/28/17 at 12:00 Tiotropium [place] (Spiriva) 1 inh DAILY INH Last administered on 05/02/17 08: 31; Admin Dose 1 INH; Start 04/30/17 at 13:30 Salmeterol Xinafoate/ Fluticasone (Advair 250/50 Diskus) 1 inh BID INH Last administered on 05/02/17 08:31; Admin Dose 1 INH; Start 04/30/17 at 21:00 Insulin Glargine (Lantus) 40 unit BID SC Last administered on 05/02/17 08:52; Admin Dose 40 UNIT; Start 05/01/17 at 21:00 Copies To: CC: GERMÁN WAY MD, ANASTASIA NP May 02, 2017 16:03
[2017-05-02] MEDS ORDERED: SOD CHLORIDE 0.9% 250 ML IV* ONE (17:44)
--- NOTE | 2017-05-02 17:44 | CONS ---
Date/Time of Note Date/Time of Note DATE: 05/02/17 TIME: 17:41 Assessment/Plan Assessment/Plan Additional Assessment/Plan 1. 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 H/o CKD due to diabetic nehropathy as per pt was stage IV/V with eGFR 15 as outpatient 3. Acute hyperkalemia due to TROY on CKD - resolved after pt gets started on HD 4. Metabolic acidosis due to worsenign renal failure 5. H/ CAD S/p previous coronary angiogram as per patient 6. Hypertension 7. Type II DM 8. Hyperlipidemia 9. Acute NSETMI due to CHF 10. severe anemia despite getting PRBC, concerned abotu GI bleeding, Plan : hepatitis C antibody positive, Hepatitis A antibody positive S/p HD on saturday, will plan for HD tomorrow with PRBC S/p GI consult, plan for EGD + Colonoscopy on Saturday we are not using heparin during HD Renal US showed small size kidneys, no hydronephrosis, c/w CKD on Epogen for anemia will follow up Consultation Date/Type/Reason Admit Date/Time Apr 24, 2017 at 19:05 Initial Consult Date 04/25/17 Type of Consultation: NEPHROLOGY Referring Provider: NANY PRIEST NP 24 HR Interval Summary Free Text/Dictation s/p HD today 2.3 L removed , BP stable Exam/Review of Systems Vital Signs Vitals Vital Signs Date Time Temp Pulse Resp B/P Pulse Ox O2 Delivery O2 Flow Rate FiO2 05/02/17 16:00 61 05/02/17 15:45 97.0 22 152/69 95 05/02/17 12:00 2.0 05/01/17 17:19 Nasal Cannula Intake and Output 05/01/17 05/01/17 05/02/17 15:00 23:00 07:00 Intake Total 500 ml 1200 ml 400 ml Output Total 800 ml 2500 ml Balance -300 ml -1300 ml 400 ml Exam Constitutional: alert Respiratory: clear to auscultation, diminished breath sounds, normal air movement Cardiovascular: nl pulses, regular rate and rhythm Gastrointestinal: non-tender, soft Musculoskeletal: muscle weakness, nl extremities to inspection, swelling Extremities: calf tenderness, normal pulses 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: ASSISTANT PRODUCTION MANAGER II-XII intact, nl mental status, nl speech, nl strength Results Result Diagram: 05/02/17 0622 05/02/17 0622 Results 24 hrs Laboratory Tests Test 05/01/17 22:05 05/02/17 06:22 05/02/17 06:36 05/02/17 06:54 Bedside Glucose 139 278 H White Blood Count 22.8 H Red Blood Count 2.42 #L Hemoglobin 7.5 #L Hematocrit 21.7 #L Mean Corpuscular Volume 89.7 Mean Corpuscular Hemoglobin 31.0 Mean Corpuscular Hemoglobin Concent 34.6 Red Cell Distribution Width 16.7 H Platelet Count 296 Mean Platelet Volume 12.9 H Neutrophils % 86.7 H Lymphocytes % 6.6 L Monocytes % 2.9 Eosinophils % 0.0 Basophils % 0.2 Nucleated Red Blood Cells % 1.1 H Neutrophils # 19.8 H Lymphocytes # 1.5 Monocytes # 0.7 Eosinophils # 0.0 Basophils # 0.1 Nucleated Red Blood Cells # 0.3 H Sodium Level 135 Potassium Level 4.9 Chloride Level 98 Carbon Dioxide Level 26 Anion Gap 16 Blood Urea Nitrogen 75 H Creatinine 4.21 H Glucose Level 240 H Calcium Level 8.5 Lab Scanned Report BLOOD TRANSFUSION Test 05/02/17 07:33 05/02/17 11:52 Bedside Glucose 323 H 185 Medications Medications Current Medications Ondansetron HCl (Zofran Tab) 4 mg Q6H PRN PO NAUSEA AND/OR VOMITING; Start at 23:00 Nitroglycerin (Nitroglycerin (Sl Tab) 0.4 Mg) 1 tab Q5M PRN SL CHEST PAIN; Start 04/24/17 at 23:00 Docusate Sodium (Colace) 100 mg Q12H PRN PO CONSTIPATION; Start 04/24/17 at 23 :00 Bisacodyl (Dulcolax) 5 mg DAILY PRN PO CONSTIPATION; Start 04/24/17 at 23:00 Amlodipine Besylate (Norvasc) 5 mg DAILY PO Last administered on 05/02/17 08: 30; Admin Dose 5 MG; Start 04/25/17 at 09:00 Atorvastatin Calcium (Lipitor) 80 mg QHS PO Last administered on 05/01/17 23: 25; Admin Dose 80 MG; Start 04/25/17 at 21:00 Ergocalciferol (Drisdol) 50,000 unit Mo@09 PO Last administered on 04/29/17 17 :21; Admin Dose 50,000 UNIT; Start 04/24/17 at 23:00 Ferrous Sulfate (Ferrous Sulfate (Ec)) 325 mg DAILY PO Last administered on 08:29; Admin Dose 325 MG; Start 04/25/17 at 09:00 Multivit/Ca Carb/ B Cmplx/FA/Prenat (Isabel-Brenda) 1 tab DAILY PO Last administered on 05/02/17 08:30; Admin Dose 1 TAB; Start 04/25/17 at 09:00 Pantoprazole (Protonix Tab) 40 mg DAILY@06 PO Last administered on 05/02/17 06 :33; Admin Dose 40 MG; Start 04/25/17 at 06:00 Guaifenesin/ Dextromethorphan (Mucinex Dm) 1 tab BID PO Last administered on 08:29; Admin Dose 1 TAB; Start 04/25/17 at 03:15 Hydralazine HCl (Apresoline) 10 mg Q4H PRN IV ELEVATED BLOOD PRESSURE Last administered on 04/28/17 07:04; Admin Dose 10 MG; Start 04/25/17 at 03:30 Diagnostic Test (Pha) (Accu-Chek) 1 ea 02 XX Last administered on 05/01/17 02: 07; Admin Dose 1 EA; Start 04/26/17 at 02:00 Citric Acid/ Sodium Citrate (Bicitra) 30 ml TID PO Last administered on 13:57; Admin Dose 30 ML; Start 04/25/17 at 13:00 Aspirin (Aspirin) 81 mg DAILY PO Last administered on 04/30/17 10:05; Admin Dose 81 MG; Start 04/25/17 at 12:00; Status Future Hold Heparin Sodium (Porcine) (Heparin (5000 Units/0.5 ml)) 5,000 unit BID SC Last administered on 05/02/17 08:48; Admin Dose 5,000 UNIT; Start 04/26/17 at 09:00 Miscellaneous Information 1 ea NOTE XX Last administered on 04/30/17 17:45; Admin Dose 1 EA; Start 04/25/17 at 12:00 Glucose (Glutose) 15 gm Q15M PRN PO DECREASED GLUCOSE; Start 04/25/17 at 12:00 Glucose (Glutose) 22.5 gm Q15M PRN PO DECREASED GLUCOSE; Start 04/25/17 at 12: 00 Dextrose (D50w Syringe) 25 ml Q15M PRN IV DECREASED GLUCOSE; Start 04/25/17 at 12:00 Dextrose (D50w Syringe) 50 ml Q15M PRN IV DECREASED GLUCOSE; Start 04/25/17 at 12:00 Glucagon (Glucagen) 1 mg Q15M PRN IM DECREASED GLUCOSE; Start 04/25/17 at 12: 00 Glucose (Glutose) 15 gm Q15M PRN BUCCAL DECREASED GLUCOSE; Start 04/25/17 at 12:00 Furosemide (Lasix) 20 mg BID IV Last administered on 05/01/17 23:26; Admin Dose 20 MG; Start 04/26/17 at 09:00 Fish Oil (Fish Oil) 2,000 mg BID PO Last administered on 05/02/17 08:28; Admin Dose 2,000 MG; Start 04/27/17 at 21:00 EZETIMIBE (Zetia) 10 mg DAILY PO Last administered on 05/02/17 08:30; Admin Dose 10 MG; Start 04/28/17 at 09:00 Metoprolol Succinate (Toprol Xl) 25 mg DAILY PO Last administered on 05/02/17 08:29; Admin Dose 25 MG; Start 04/27/17 at 11:00 Morphine Sulfate (morphine) 2 mg Q4H PRN IV Pain Last administered on 10:24; Admin Dose 2 MG; Start 04/28/17 at 09:00 Linagliptin (Tradjenta) 5 mg DAILY PO Last administered on 05/02/17 08:29; Admin Dose 5 MG; Start 04/28/17 at 12:00 Tiotropium [place] (Spiriva) 1 inh DAILY INH Last administered on 05/02/17 08: 31; Admin Dose 1 INH; Start 04/30/17 at 13:30 Salmeterol Xinafoate/ Fluticasone (Advair 250/50 Diskus) 1 inh BID INH Last administered on 05/02/17 08:31; Admin Dose 1 INH; Start 12/5/17 at 21:00 Insulin Glargine (Lantus) 40 unit BID SC Last administered on 05/02/17t 08:52; Admin Dose 40 UNIT; Start 05/01/17 at 21:00 RAQUEL MCDOWELL MD May 02, 2017 17:44
--- NOTE | 2017-05-02 18:39 | PN ---
Date/Time of Note Date/Time of Note DATE: 05/02/17 TIME: 18:39 Assessment/Plan Lines/Catheters IV Catheter Type (from [facility]): JAMIL CATH Pierre in Place (from [facility]): No Assessment/Plan Chief Complaint/Hosp Course -Acute on chronic kidney disease: It seems the patient's renal failure has progressed to possibly end-stage renal, in which the patient requires permanent hemodialysis. As our nephrology colleagues are evaluating the patient at the moment, the patient will require hemodialysis and will require catheter placement. -S/P right CFV Jamil catheter -Patient has multiple access options will plan when more optimized -Optimize vascular status (BP meds, diet, nutrition, exercise, sugar control, antiplatelets). -Bilateral lower extremity atherosclerosis: The patient has no significant ulcerations or gangrene for now. Will plan to follow with the patient's vascular surveillance as an outpatient. -Discussed findings, plan and management with the patient and the family at the bedside and they understand. -Thank you for allowing us to partake in the care of your patient. Please call with any questions. Problems: Exam/Review of Systems Vital Signs Vitals Vital Signs Date Time Temp Pulse Resp B/P Pulse Ox O2 Delivery O2 Flow Rate FiO2 05/04/17 15:50 98.2 62 17 190/59 99 Nasal Cannula 2.0 Intake and Output 05/03/17 05/03/17 05/04/17 14:59 22:59 06:59 Intake Total 500 ml Output Total 3500 ml Balance -3000 ml Exam Free Text/Dictation GENERAL: Alert and oriented x3; however, he is not able to answer difficult questions. PULMONARY: Bilateral crackles at the bases. CARDIOVASCULAR: S1, S2 present. ABDOMEN: Soft, nontender, nondistended. Bowel sounds positive. Truncal obesity. EXTREMITIES: Right lower extremity palpable femoral pulse, nonpalpable pedal pulse. Motor and sensory intact. Capillary refill 3 seconds. Jamil intact and functional Left lower extremity: Palpable femoral pulse, nonpalpable pedal pulse. Motor and sensory intact. Capillary refill 3 seconds. Results Result Diagram: 05/04/1762105/04/17621 VANIA PEREYRA MD May 02, 2017 18:39
[2017-05-02] MEDS: ATORVASTATIN 80 MG TAB PO SCH (21:25)
[2017-05-03] VITALS (28 sets, daily range): BP systolic 119–189; BP diastolic 51–85; PULSE 54–100; RESP 13–20
[2017-05-03] MEDS: ALBUTEROL/IPRATROPIUM (NEB) 3 ML AMP HHN SCH ×6 (00:17→20:34)
[2017-05-03] MEDS: hydrALAzine 20 MG INJ IV PRN (01:01)
[2017-05-03] MEDS: ACCU-CHEK XX SCH (01:57)
[2017-05-03] MEDS: PANTOPRAZOLE (EC) 40 MG TAB PO SCH (06:42)
--- NOTE | 2017-05-03 06:55 | RADRPT ---
PROCEDURE: XR Chest. CLINICAL INDICATION: Chest pain. TECHNIQUE: AP Portable chest. COMPARISON: 04/29/2017 chest x-, 04/28/2017 chest x-ray, and 04/24/2017 chest x-ray FINDINGS: Visualized soft tissues and osseous structures demonstrate mild thoracic spondylosis present. Persis tent bibasilar interstitial infiltrates or discoid atelectasis is present superimposed on chronic ap pearing interstitial changes. No pleural effusions are present. Mild cardiomegaly is present with va scular calcifications of the thoracic aorta. No pneumothorax is present. IMPRESSION: 1. Persistent bibasilar discoid atelectasis or infiltrate superimposed on coarse interstitium. 2. Mild cardiomegaly and atherosclerotic vascular disease 3. Thoracic spondylosis RPTAT: HDC .Alexa Goldman MD, Date Time Electronically viewed and signed by .Alexa Goldman MD, on 05/03/2017 06:52 .C/
[2017-05-03 07:48] LABS: CALCIUM 8.6 mg/dl (8.4-10.2); CREATININE 4.99 mg/dl (0.61-1.24); POTASSIUM 3.6 mmol/L (3.5-5.1)
[2017-05-03] MEDS: INSULIN ASPART [NOVOLOG] 3 ML PEN SC SCH ×7 (07:55→22:03)
[2017-05-03] MEDS ORDERED: METHYLPREDNISOLONE 40 MG INJ IV SCH (09:00)
[2017-05-03 09:13] LABS: HEMATOCRIT 21.1 % (42.0-52.0); MEAN CORPUSCULAR HEMOGLOBIN 31.3 pg (29.0-33.0); MEAN CORPUSCULAR HGB CONC 34.6 g/dl (32.0-37.0); MEAN CORPUSCULAR VOLUME 90.6 fl (82.0-101.0); MEAN PLATELET VOLUME 11.6 fl (7.4-10.4); NUCLEATED RED BLOOD CELLS% 0.7 /100WBC (0.0-0.0); POSITIVE DIFF @See below; RED BLOOD COUNT 2.33 10^6/ul (4.70-6.10); RED CELL DISTRIBUTION WIDTH 17.3 % (11.5-14.5)
[2017-05-03 09:15] LABS: HEMOGLOBIN 7.3 g/dl (14.0-18.0); PLATELET COUNT 273 10^3/UL (140-415); WHITE BLOOD COUNT 23.7 10^3/ul (4.8-10.8)
[2017-05-03] MEDS: CITRIC ACID/SODIUM CITRATE 15 ML CUP PO SCH ×3 (09:15→21:46)
[2017-05-03] MEDS: TIOTROPIUM 18 MCG CAPSULE INHA DEV INH SCH (09:16)
[2017-05-03] MEDS: GUAIFENESIN/DM (SR) TAB PO SCH ×2 (09:16→21:44)
[2017-05-03] MEDS: EZETIMIBE 10 MG TAB PO SCH (09:16)
[2017-05-03] MEDS: FISH OIL 1,000 MG CAP PO SCH ×2 (09:16→21:45)
[2017-05-03] MEDS: FERROUS SULFATE (EC) 325 MG TAB PO SCH (09:16)
[2017-05-03] MEDS: MULTIVIT/CA CARB/B CMPLX/FA TAB PO SCH (09:16)
[2017-05-03] MEDS: SALMETEROL/FLUTICASONE 250/50 INHA INH SCH ×2 (09:16→21:46)
[2017-05-03] MEDS: AMLODIPINE 5 MG TAB PO SCH ×2 (09:17→21:45)
[2017-05-03] MEDS: LINAGLIPTIN 5 MG TABLET PO SCH (09:17)
[2017-05-03] MEDS: METOPROLOL (XL) 25 MG TAB PO SCH (09:18)
[2017-05-03] MEDS: FUROSEMIDE 20 MG INJ IV SCH ×2 (09:18→21:00)
[2017-05-03] MEDS: HEPARIN 5,000 UNIT/0.5 ML VIAL SC SCH ×2 (09:19→22:04)
[2017-05-03] MEDS: INSULIN GLARGINE [LANtus] 3 ML PEN SC SCH ×2 (09:30→22:04)
[2017-05-03] MEDS: BUDESONIDE (NEB) 0.5MG/2ML AMP HHN SCH ×2 (10:30→20:00)
[2017-05-03 10:42] LABS: ANISOCYTOSIS 2+ (0-0); GIANT THROMBO% (M) 1 % (0-0); METAMYELOCYTES %M 1 % (0-0); MICROCYTOSIS 1+ (0-0); MONOCYTES % (M) 7 % (0-11); PLATELET ESTIMATE NORMAL; POIKILOCYTOSIS 3+ (0-0); POLYCHROMASIA 3+ (0-0); PROMYELOCYTES #M 0.4 10^3/ul (0-0); PROMYELOCYTES % (M) 2 % (0-0)
--- NOTE | 2017-05-03 12:44 | CONS ---
Date/Time of Note Date/Time of Note DATE: 05/03/17 TIME: 12:41 Assessment/Plan Assessment/Plan Additional Assessment/Plan Volume overload Acute kidney injury with history of CKD, started on hemodialysis Acute decompensated diastolic congestive heart failure Diabetes CAD with history of PCI over 10 years ago Hypertension Dyslipidemia History of DVT, previously on anticoagulation Acute blood loss anemia status post blood transfusion Intermittent Mobitz type I, asymptomatic -Patient planned for endoscopy today given recurrent anemia requiring blood transfusion. Aspirin and anticoagulation have been stopped. Fluid management via hemodialysis as per our nephrology colleagues. Blood pressure trend on the higher end, I will increase the Norvasc to twice daily dosing. Continue on telemetry monitoring. Continue statin therapy. Consultation Date/Type/Reason Admit Date/Time Apr 24, 2017 at 19:05 Initial Consult Date 04/27/17 Type of Consultation: cv Referring Provider: NANY PRIEST CISTERN ROOM OPERATOR 24 HR Interval Summary Free Text/Dictation Feels more fatigued today. Denies chest pain. Having occasional shortness of breath Exam/Review of Systems Vital Signs Vitals Vital Signs Date Time Temp Pulse Resp B/P Pulse Ox O2 Delivery O2 Flow Rate FiO2 05/03/17 12:04 97 05/03/17 11:51 98.2 20 174/63 96 05/03/17 10:30 Nasal Cannula 4.0 Intake and Output 05/02/17 05/02/17 05/03/17 15:00 23:00 07:00 Intake Total 800 ml 700 ml Output Total 3500 ml Balance 800 ml -2800 ml Exam Sitting in chair, multiple family members at bedside Constitutional: alert, obese, oriented Head: normocephalic Respiratory: other (Coarse breath sounds bilaterally, no wheezing) Cardiovascular: other (S1-S2 heard), regular rate and rhythm Gastrointestinal: bowel sounds, non-tender, soft Extremities: edema Results Result Diagram: 05/03/17 0642 05/03/17 0642 Results 24 hrs Laboratory Tests Test 05/02/17 17:24 05/02/17 21:22 05/03/17 06:42 05/03/17 08:11 Bedside Glucose 115 78 162 White Blood Count 23.7 H Red Blood Count 2.33 L Hemoglobin 7.3 L Hematocrit 21.1 L Mean Corpuscular Volume 90.6 Mean Corpuscular Hemoglobin 31.3 Mean Corpuscular Hemoglobin Concent 34.6 Red Cell Distribution Width 17.3 H Platelet Count 273 Mean Platelet Volume 11.6 H Neutrophils % Segmented Neutrophils % (Manual) 63 Band Neutrophils % (Manual) 3 Lymphocytes % Lymphocytes % (Manual) 24 Monocytes % Monocytes % (Manual) 7 Eosinophils % Basophils % Metamyelocytes % (manual) 1 H Promyelocytes % (Manual) 2 H Nucleated Red Blood Cells % 0.7 H Neutrophils # Neutrophils # (Manual) 15.1 H Band Neutrophils # 0.7 H Absolute Lymphocytes (Manual) 5.6 H Lymphocytes # Monocytes # Absolute Monocytes (Manual) 1.6 H Eosinophils # Basophils # Metamyelocytes # 0.2 H Promyelocytes # 0.4 H Nucleated Red Blood Cells # Platelet Estimate NORMAL Giant Platelets 1 H Polychromasia 3+ Poikilocytosis 3+ Anisocytosis 2+ Microcytosis 1+ Macrocytosis 1+ Sodium Level 136 Potassium Level 3.6 Chloride Level 95 L Carbon Dioxide Level 29 Anion Gap 16 Blood Urea Nitrogen 89 H Creatinine 4.99 H Glucose Level 84 # Calcium Level 8.6 Test 05/03/17 09:27 05/03/17 12:13 Bedside Glucose 169 172 Medications Medications Current Medications Ondansetron HCl (Zofran Tab) 4 mg Q6H PRN PO NAUSEA AND/OR VOMITING; Start at 23:00 Nitroglycerin (Nitroglycerin (Sl Tab) 0.4 Mg) 1 tab Q5M PRN SL CHEST PAIN; Start 04/24/17 at 23:00 Docusate Sodium (Colace) 100 mg Q12H PRN PO CONSTIPATION; Start 04/24/17 at 23 :00 Bisacodyl (Dulcolax) 5 mg DAILY PRN PO CONSTIPATION; Start 04/24/17 at 23:00 Amlodipine Besylate (Norvasc) 5 mg DAILY PO Last administered on 05/03/17 09: 17; Admin Dose 5 MG; Start 04/25/17 at 09:00 Atorvastatin Calcium (Lipitor) 80 mg QHS PO Last administered on 05/02/17 21: 25; Admin Dose 80 MG; Start 04/25/17 at 21:00 Ergocalciferol (Drisdol) 50,000 unit Mo@09 PO Last administered on 04/29/17 17 :21; Admin Dose 50,000 UNIT; Start 04/24/17 at 23:00 Ferrous Sulfate (Ferrous Sulfate (Ec)) 325 mg DAILY PO Last administered on 09:16; Admin Dose 325 MG; Start 04/25/17 at 09:00 Multivit/Ca Carb/ B Cmplx/FA/Prenat (Isabel-Brenda) 1 tab DAILY PO Last administered on 05/03/17 09:16; Admin Dose 1 TAB; Start 04/25/17 at 09:00 Pantoprazole (Protonix Tab) 40 mg DAILY@06 PO Last administered on 05/03/17 06 :42; Admin Dose 40 MG; Start 04/25/17 at 06:00 Guaifenesin/ Dextromethorphan (Mucinex Dm) 1 tab BID PO Last administered on 09:16; Admin Dose 1 TAB; Start 04/25/17 at 03:15 Hydralazine HCl (Apresoline) 10 mg Q4H PRN IV ELEVATED BLOOD PRESSURE Last administered on 05/03/17 01:01; Admin Dose 10 MG; Start 04/25/17 at 03:30 Diagnostic Test (Pha) (Accu-Chek) 1 ea 02 XX Last administered on 05/01/17 02: 07; Admin Dose 1 EA; Start 04/26/17 at 02:00 Citric Acid/ Sodium Citrate (Bicitra) 30 ml TID PO Last administered on 09:15; Admin Dose 30 ML; Start 04/25/17 at 13:00 Aspirin (Aspirin) 81 mg DAILY PO Last administered on 04/30/17 10:05; Admin Dose 81 MG; Start 04/25/17 at 12:00; Status Future Hold Heparin Sodium (Porcine) (Heparin (5000 Units/0.5 ml)) 5,000 unit BID SC Last administered on 05/03/17 09:19; Admin Dose 5,000 UNIT; Start 04/26/17 at 09:00 Miscellaneous Information 1 ea NOTE XX Last administered on 04/30/17 17:45; Admin Dose 1 EA; Start 04/25/17 at 12:00 Glucose (Glutose) 15 gm Q15M PRN PO DECREASED GLUCOSE; Start 04/25/17 at 12:00 Glucose (Glutose) 22.5 gm Q15M PRN PO DECREASED GLUCOSE; Start 11/30/17 at 12: 00 Dextrose (D50w Syringe) 25 ml Q15M PRN IV DECREASED GLUCOSE; Start 04/25/17 at 12:00 Dextrose (D50w Syringe) 50 ml Q15M PRN IV DECREASED GLUCOSE; Start 04/25/17 at 12:00 Glucagon (Glucagen) 1 mg Q15M PRN IM DECREASED GLUCOSE; Start 04/25/17 at 12: 00 Glucose (Glutose) 15 gm Q15M PRN BUCCAL DECREASED GLUCOSE; Start 04/25/17 at 12:00 Furosemide (Lasix) 20 mg BID IV Last administered on 05/03/17 09:18; Admin Dose 20 MG; Start 04/26/17 at 09:00 Fish Oil (Fish Oil) 2,000 mg BID PO Last administered on 05/03/17 09:16; Admin Dose 2,000 MG; Start 04/27/17 at 21:00 EZETIMIBE (Zetia) 10 mg DAILY PO Last administered on 05/03/17 09:16; Admin Dose 10 MG; Start 04/28/17 at 09:00 Metoprolol Succinate (Toprol Xl) 25 mg DAILY PO Last administered on 05/03/17 09:18; Admin Dose 25 MG; Start 04/27/17 at 11:00 Morphine Sulfate (morphine) 2 mg Q4H PRN IV Pain Last administered on 10:24; Admin Dose 2 MG; Start 04/28/17 at 09:00 Linagliptin (Tradjenta) 5 mg DAILY PO Last administered on 05/03/17 09:17; Admin Dose 5 MG; Start 04/28/17 at 12:00 Tiotropium [place] (Spiriva) 1 inh DAILY INH Last administered on 05/03/17 09: 16; Admin Dose 1 INH; Start 04/30/17 at 13:30 Salmeterol Xinafoate/ Fluticasone (Advair 250/50 Diskus) 1 inh BID INH Last administered on 05/03/17 09:16; Admin Dose 1 INH; Start 04/30/17 at 21:00 Insulin Glargine (Lantus) 40 unit BID SC Last administered on 05/03/17 09:30; Admin Dose 40 UNIT; Start 05/01/17 at 21:00 Dell De La Torre DO May 03, 2017 12:44
[2017-05-03] MEDS ORDERED: MAGNESIUM HYDROXIDE 30ML CUP PO PRN (13:30)
--- NOTE | 2017-05-03 13:53 | PN ---
Date/Time of Note Date/Time of Note DATE: 05/03/17 TIME: 13:41 Assessment/Plan VTE Prophylaxis VTE Prophylaxis Intervention: SCD's Lines/Catheters IV Catheter Type (from Nrs): JAMIL CATHETER Urinary Cath still in place: No Assessment/Plan Assessment/Plan 1. Acute respiratory failure due to volume overload, improved with HD 2. Acute on chronic renal failure, on HD 3. Acute decompensated diastolic congestive heart failure, HD 4. CAD with history of PCI over 10 years ago 5. DM, on insulins 6. Hypertension 7. Dyslipidemia, on lipitor 8. History of DVT, previously on anticoagulation, xarelto on hold now 9. Anemia, PRBC transfusion today, follow up with H/H 10. Intermittent Mobitz type I, asymptomatic 11. Abdominal discomfort, endoscopy today, CT scan 3. Gram-positive bacteremia. Suspect contaminant. ID consult is following. Antibiotic regimen per ID consult. WBC downward trending. 7. Metabolic acidosis secondary to worsening renal function. Continue on Bicitra per talent advisor. 10. Essential hypertension continue antihypertensives and adjust needed. 11. Left popliteal vein DVT. Patient did have prior history of DVT in the lower extremities and was taking Xarelto at home. Discontinued now due to worsening renal function. Follow-up with vascular surgeon recs. Subjective 24 Hr Interval Summary Free Text/Dictation no shortness of breath. diffuse abdominal discomfort Exam/Review of Systems Vital Signs Vitals Vital Signs Date Time Temp Pulse Resp B/P Pulse Ox O2 Delivery O2 Flow Rate FiO2 05/03/17 12:04 97 05/03/17 12:00 Nasal Cannula 2.0 05/03/17 11:51 98.2 20 174/63 96 Intake and Output 05/02/17 05/02/17 05/03/17 15:00 23:00 07:00 Intake Total 800 ml 700 ml Output Total 3500 ml Balance 800 ml -2800 ml Exam Constitutional: alert, oriented, well developed Psych: nl mood/affect, no complaints Head: atraumatic, normocephalic Eyes: EOMI, PERRL, nl conjunctiva, nl lids, nl sclera ENMT: nl external ears & nose, nl lips & teeth, nl nasal mucosa & septum Neck: non-tender, supple Respiratory: clear to auscultation, normal air movement, No congested cough, No crackles/rales, No diminished breath sounds, No intercostal retraction, No labored breathing, No other, No respirations, No tactile fremitus, No wheezing Cardiovascular: nl pulses, regular rate and rhythm, No S3, No S4, No bruits, No diastolic murmur, No edema, No gallop, No irregular rhythm, No jugular venous distention (JVD), No murmurs/extra sounds, No other, No rub, No systolic murmur Gastrointestinal: distended, soft, tender (diffuse mild tenderness) Musculoskeletal: nl extremities to inspection Extremities: normal pulses, No calf tenderness, No clubbing, No cyanosis, No edema, No other, No palpable cord, No pitting pedal edema, No tenderness 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: SU[employer]ENT [employer]MIN[employer] II-XII intact, nl mental status, nl speech, nl strength Skin: nl turgor Lymph: nl lymph nodes Results Result Diagram: 05/03/17 0642 05/03/17 0642 Results 24 hrs Laboratory Tests Test 05/02/17 17:24 05/02/17 21:22 05/03/17 06:42 05/03/17 08:11 Bedside Glucose 115 78 162 White Blood Count 23.7 H Red Blood Count 2.33 L Hemoglobin 7.3 L Hematocrit 21.1 L Mean Corpuscular Volume 90.6 Mean Corpuscular Hemoglobin 31.3 Mean Corpuscular Hemoglobin Concent 34.6 Red Cell Distribution Width 17.3 H Platelet Count 273 Mean Platelet Volume 11.6 H Neutrophils % Segmented Neutrophils % (Manual) 63 Band Neutrophils % (Manual) 3 Lymphocytes % Lymphocytes % (Manual) 24 Monocytes % Monocytes % (Manual) 7 Eosinophils % Basophils % Metamyelocytes % (manual) 1 H Promyelocytes % (Manual) 2 H Nucleated Red Blood Cells % 0.7 H Neutrophils # Neutrophils # (Manual) 15.1 H Band Neutrophils # 0.7 H Absolute Lymphocytes (Manual) 5.6 H Lymphocytes # Monocytes # Absolute Monocytes (Manual) 1.6 H Eosinophils # Basophils # Metamyelocytes # 0.2 H Promyelocytes # 0.4 H Nucleated Red Blood Cells # Platelet Estimate NORMAL Giant Platelets 1 H Polychromasia 3+ Poikilocytosis 3+ Anisocytosis 2+ Microcytosis 1+ Macrocytosis 1+ Sodium Level 136 Potassium Level 3.6 Chloride Level 95 L Carbon Dioxide Level 29 Anion Gap 16 Blood Urea Nitrogen 89 H Creatinine 4.99 H Glucose Level 84 # Calcium Level 8.6 Test 05/03/17 09:27 05/03/17 12:13 Bedside Glucose 169 172 Medications Medications Current Medications Ondansetron HCl (Zofran Tab) 4 mg Q6H PRN PO NAUSEA AND/OR VOMITING; Start at 23:00 Nitroglycerin (Nitroglycerin (Sl Tab) 0.4 Mg) 1 tab Q5M PRN SL CHEST PAIN; Start 04/24/17 at 23:00 Docusate Sodium (Colace) 100 mg Q12H PRN PO CONSTIPATION; Start 04/24/17 at 23 :00 Bisacodyl (Dulcolax) 5 mg DAILY PRN PO CONSTIPATION; Start 04/24/17 at 23:00 Atorvastatin Calcium (Lipitor) 80 mg QHS PO Last administered on 05/02/17 21: 25; Admin Dose 80 MG; Start 04/25/17 at 21:00 Ergocalciferol (Drisdol) 50,000 unit Mo@09 PO Last administered on 04/29/17 17 :21; Admin Dose 50,000 UNIT; Start 04/24/17 at 23:00 Ferrous Sulfate (Ferrous Sulfate (Ec)) 325 mg DAILY PO Last administered on 09:16; Admin Dose 325 MG; Start 04/25/17 at 09:00 Multivit/Ca Carb/ B Cmplx/FA/Prenat (Isabel-Brenda) 1 tab DAILY PO Last administered on 05/03/17 09:16; Admin Dose 1 TAB; Start 04/25/17 at 09:00 Pantoprazole (Protonix Tab) 40 mg DAILY@06 PO Last administered on 05/03/17 06 :42; Admin Dose 40 MG; Start 04/25/17 at 06:00 Guaifenesin/ Dextromethorphan (Mucinex Dm) 1 tab BID PO Last administered on 09:16; Admin Dose 1 TAB; Start 04/25/17 at 03:15 Hydralazine HCl (Apresoline) 10 mg Q4H PRN IV ELEVATED BLOOD PRESSURE Last administered on 05/03/17 01:01; Admin Dose 10 MG; Start 04/25/17 at 03:30 Diagnostic Test (Pha) (Accu-Chek) 1 ea 02 XX Last administered on 05/01/17 02: 07; Admin Dose 1 EA; Start 04/26/17 at 02:00 Citric Acid/ Sodium Citrate (Bicitra) 30 ml TID PO Last administered on 09:15; Admin Dose 30 ML; Start 04/25/17 at 13:00 Aspirin (Aspirin) 81 mg DAILY PO Last administered on 04/30/17 10:05; Admin Dose 81 MG; Start 04/25/17 at 12:00; Status Future Hold Heparin Sodium (Porcine) (Heparin (5000 Units/0.5 ml)) 5,000 unit BID SC Last administered on 05/03/17 09:19; Admin Dose 5,000 UNIT; Start 04/26/17 at 09:00 Miscellaneous Information 1 ea NOTE XX Last administered on 04/30/17 17:45; Admin Dose 1 EA; Start 04/25/17 at 12:00 Glucose (Glutose) 15 gm Q15M PRN PO DECREASED GLUCOSE; Start 04/25/17 at 12:00 Glucose (Glutose) 22.5 gm Q15M PRN PO DECREASED GLUCOSE; Start 04/25/17 at 12: 00 Dextrose (D50w Syringe) 25 ml Q15M PRN IV DECREASED GLUCOSE; Start 04/25/17 at 12:00 Dextrose (D50w Syringe) 50 ml Q15M PRN IV DECREASED GLUCOSE; Start 04/25/17 at 12:00 Glucagon (Glucagen) 1 mg Q15M PRN IM DECREASED GLUCOSE; Start 04/25/17 at 12: 00 Glucose (Glutose) 15 gm Q15M PRN BUCCAL DECREASED GLUCOSE; Start 04/25/17 at 12:00 Furosemide (Lasix) 20 mg BID IV Last administered on 05/03/17 09:18; Admin Dose 20 MG; Start 04/26/17 at 09:00 Fish Oil (Fish Oil) 2,000 mg BID PO Last administered on 05/03/17 09:16; Admin Dose 2,000 MG; Start 04/27/17 at 21:00 EZETIMIBE (Zetia) 10 mg DAILY PO Last administered on 05/03/17 09:16; Admin Dose 10 MG; Start 04/28/17 at 09:00 Metoprolol Succinate (Toprol Xl) 25 mg DAILY PO Last administered on 05/03/17 09:18; Admin Dose 25 MG; Start 04/27/17 at 11:00 Morphine Sulfate (morphine) 2 mg Q4H PRN IV Pain Last administered on 10:24; Admin Dose 2 MG; Start 04/28/17 at 09:00 Linagliptin (Tradjenta) 5 mg DAILY PO Last administered on 05/03/17 09:17; Admin Dose 5 MG; Start 04/28/17 at 12:00 Tiotropium [place] (Spiriva) 1 inh DAILY INH Last administered on 05/03/17 09: 16; Admin Dose 1 INH; Start 04/30/17 at 13:30 Salmeterol Xinafoate/ Fluticasone (Advair 250/50 Diskus) 1 inh BID INH Last administered on 05/03/17 09:16; Admin Dose 1 INH; Start 04/30/17 at 21:00 Insulin Glargine (Lantus) 40 unit BID SC Last administered on 05/03/17 09:30; Admin Dose 40 UNIT; Start 05/01/17 at 21:00 Amlodipine Besylate (Norvasc) 5 mg BID PO ; Start 05/03/17 at 21:00 FANTA GARCIA MD May 03, 2017 13:51
--- NOTE | 2017-05-03 14:12 | CONS ---
Date/Time of Note Date/Time of Note DATE: 05/03/17 TIME: 14:10 Assessment/Plan Assessment/Plan Chief Complaint/Hosp Course SUBJECTIVE: No acute changes. The patient is alert, looks comfortable, no fevers. PHYSICAL EXAMINATION: GENERAL: This is a fragile well-developed elderly man who is awake, in no distress. HEENT: Head atraumatic, normocephalic. Sclerae anicteric. Buccal mucosa dry. NECK: Supple. CHEST: Rise symmetrical. Breath sounds with scattered crackles and expiratory wheezes. HEART: S1, S2. ABDOMEN: Soft, bowel tones present. EXTREMITIES: Without cyanosis. ASSESSMENT: 1. Systemic inflammatory response syndrome with ongoing leukocytosis, on steroids. 2. Acute chronic obstructive pulmonary disease exacerbation==> s/p Cefepime. 3. Pulmonary edema. 4. End-stage renal disease, now on hemodialysis. 5. Diabetes. 6. History of coronary artery bypass graft. 7. Hypertension. 8. Acute on chronic anemia PLAN: The patient remains stable. Continue present care, pulmonary/card/renal rec-s, pending blood transfusion, pending EGD and colonoscopy DW family at bedside DW staff Problems: Consultation Date/Type/Reason Admit Date/Time Apr 24, 2017 at 19:05 Initial Consult Date 04/27/17 Type of Consultation: id Referring Provider: NANY PRIEST MOVING VAN DRIVER Exam/Review of Systems Vital Signs Vitals Vital Signs Date Time Temp Pulse Resp B/P Pulse Ox O2 Delivery O2 Flow Rate FiO2 05/03/17 12:04 97 05/03/17 12:00 Nasal Cannula 2.0 05/03/17 11:51 98.2 20 174/63 96 Intake and Output 05/02/17 05/02/17 05/03/17 14:59 22:59 06:59 Intake Total 800 ml 200 ml Balance 800 ml 200 ml Results Result Diagram: 05/03/17 0642 05/03/17 0642 Results 24 hrs Laboratory Tests Test 05/02/17 17:24 05/02/17 21:22 05/03/17 06:42 05/03/17 08:11 Bedside Glucose 115 78 162 White Blood Count 23.7 H Red Blood Count 2.33 L Hemoglobin 7.3 L Hematocrit 21.1 L Mean Corpuscular Volume 90.6 Mean Corpuscular Hemoglobin 31.3 Mean Corpuscular Hemoglobin Concent 34.6 Red Cell Distribution Width 17.3 H Platelet Count 273 Mean Platelet Volume 11.6 H Neutrophils % Segmented Neutrophils % (Manual) 63 Band Neutrophils % (Manual) 3 Lymphocytes % Lymphocytes % (Manual) 24 Monocytes % Monocytes % (Manual) 7 Eosinophils % Basophils % Metamyelocytes % (manual) 1 H Promyelocytes % (Manual) 2 H Nucleated Red Blood Cells % 0.7 H Neutrophils # Neutrophils # (Manual) 15.1 H Band Neutrophils # 0.7 H Absolute Lymphocytes (Manual) 5.6 H Lymphocytes # Monocytes # Absolute Monocytes (Manual) 1.6 H Eosinophils # Basophils # Metamyelocytes # 0.2 H Promyelocytes # 0.4 H Nucleated Red Blood Cells # Platelet Estimate NORMAL Giant Platelets 1 H Polychromasia 3+ Poikilocytosis 3+ Anisocytosis 2+ Microcytosis 1+ Macrocytosis 1+ Sodium Level 136 Potassium Level 3.6 Chloride Level 95 L Carbon Dioxide Level 29 Anion Gap 16 Blood Urea Nitrogen 89 H Creatinine 4.99 H Glucose Level 84 # Calcium Level 8.6 Test 05/03/17 09:27 05/03/17 12:13 Bedside Glucose 169 172 Medications Medications Current Medications Ondansetron HCl (Zofran Tab) 4 mg Q6H PRN PO NAUSEA AND/OR VOMITING; Start at 23:00 Nitroglycerin (Nitroglycerin (Sl Tab) 0.4 Mg) 1 tab Q5M PRN SL CHEST PAIN; Start 04/24/17 at 23:00 Docusate Sodium (Colace) 100 mg Q12H PRN PO CONSTIPATION; Start 04/24/17 at 23 :00 Bisacodyl (Dulcolax) 5 mg DAILY PRN PO CONSTIPATION; Start 04/24/17 at 23:00 Atorvastatin Calcium (Lipitor) 80 mg QHS PO Last administered on 05/02/17 21: 25; Admin Dose 80 MG; Start 04/25/17 at 21:00 Ergocalciferol (Drisdol) 50,000 unit Mo@09 PO Last administered on 04/29/17 17 :21; Admin Dose 50,000 UNIT; Start 04/24/17 at 23:00 Ferrous Sulfate (Ferrous Sulfate (Ec)) 325 mg DAILY PO Last administered on 09:16; Admin Dose 325 MG; Start 04/25/17 at 09:00 Multivit/Ca Carb/ B Cmplx/FA/Prenat (Isabel-Brenda) 1 tab DAILY PO Last administered on 05/03/17 09:16; Admin Dose 1 TAB; Start 04/25/17 at 09:00 Pantoprazole (Protonix Tab) 40 mg DAILY@06 PO Last administered on 05/03/17 06 :42; Admin Dose 40 MG; Start 04/25/17 at 06:00 Guaifenesin/ Dextromethorphan (Mucinex Dm) 1 tab BID PO Last administered on 09:16; Admin Dose 1 TAB; Start 04/25/17 at 03:15 Hydralazine HCl (Apresoline) 10 mg Q4H PRN IV ELEVATED BLOOD PRESSURE Last administered on 05/03/17 01:01; Admin Dose 10 MG; Start 04/25/17 at 03:30 Diagnostic Test (Pha) (Accu-Chek) 1 ea 02 XX Last administered on 05/01/17 02: 07; Admin Dose 1 EA; Start 04/26/17 at 02:00 Citric Acid/ Sodium Citrate (Bicitra) 30 ml TID PO Last administered on 09:15; Admin Dose 30 ML; Start 04/25/17 at 13:00 Aspirin (Aspirin) 81 mg DAILY PO Last administered on 04/30/17 10:05; Admin Dose 81 MG; Start 04/25/17 at 12:00; Status Future Hold Heparin Sodium (Porcine) (Heparin (5000 Units/0.5 ml)) 5,000 unit BID SC Last administered on 05/03/17 09:19; Admin Dose 5,000 UNIT; Start 04/26/17 at 09:00 Miscellaneous Information 1 ea NOTE XX Last administered on 04/30/17 17:45; Admin Dose 1 EA; Start 04/25/17 at 12:00 Glucose (Glutose) 15 gm Q15M PRN PO DECREASED GLUCOSE; Start 04/25/17 at 12:00 Glucose (Glutose) 22.5 gm Q15M PRN PO DECREASED GLUCOSE; Start 04/25/17 at 12: 00 Dextrose (D50w Syringe) 25 ml Q15M PRN IV DECREASED GLUCOSE; Start 04/25/17 at 12:00 Dextrose (D50w Syringe) 50 ml Q15M PRN IV DECREASED GLUCOSE; Start 04/25/17 at 12:00 Glucagon (Glucagen) 1 mg Q15M PRN IM DECREASED GLUCOSE; Start 04/25/17 at 12: 00 Glucose (Glutose) 15 gm Q15M PRN BUCCAL DECREASED GLUCOSE; Start 04/25/17 at 12:00 Furosemide (Lasix) 20 mg BID IV Last administered on 05/03/17 09:18; Admin Dose 20 MG; Start 04/26/17 at 09:00 Fish Oil (Fish Oil) 2,000 mg BID PO Last administered on 05/03/17 09:16; Admin Dose 2,000 MG; Start 04/27/17 at 21:00 EZETIMIBE (Zetia) 10 mg DAILY PO Last administered on 05/03/17 09:16; Admin Dose 10 MG; Start 04/28/17 at 09:00 Metoprolol Succinate (Toprol Xl) 25 mg DAILY PO Last administered on 05/03/17 09:18; Admin Dose 25 MG; Start 04/27/17 at 11:00 Morphine Sulfate (morphine) 2 mg Q4H PRN IV Pain Last administered on 10:24; Admin Dose 2 MG; Start 04/28/17 at 09:00 Linagliptin (Tradjenta) 5 mg DAILY PO Last administered on 05/03/17 09:17; Admin Dose 5 MG; Start 04/28/17 at 12:00 Tiotropium [place] (Spiriva) 1 inh DAILY INH Last administered on 05/03/17 09: 16; Admin Dose 1 INH; Start 04/30/17 at 13:30 Salmeterol Xinafoate/ Fluticasone (Advair 250/50 Diskus) 1 inh BID INH Last administered on 05/03/17 09:16; Admin Dose 1 INH; Start 04/30/17 at 21:00 Insulin Glargine (Lantus) 40 unit BID SC Last administered on 05/03/17 09:30; Admin Dose 40 UNIT; Start 05/01/17 at 21:00 Amlodipine Besylate (Norvasc) 5 mg BID PO ; Start 05/03/17 at 21:00 MARIELA BANGURA NP May 03, 2017 14:12
--- NOTE | 2017-05-03 14:51 | CONS ---
Date/Time of Note Date/Time of Note DATE: 05/03/17 TIME: 14:50 Consult Date/Type/Reason Admit Date/Time Apr 24, 2017 at 19:05 Initial Consult Date 05/01/17 Type of Consultation: Pulmonary Ordering Provider: NANY PRIEST CHOCOLATE MAKER Subjective Patient remains stable this morning. No new events. Family state he did not sleep well overnight. No respiratory distress. Objective Vital Signs Date Time Temp Pulse Resp B/P Pulse Ox O2 Delivery O2 Flow Rate FiO2 05/03/17 12:04 97 05/03/17 12:00 Nasal Cannula 2.0 05/03/17 11:51 98.2 20 174/63 96 Intake and Output 05/02/17 05/02/17 05/03/17 15:00 23:00 07:00 Intake Total 800 ml 700 ml Output Total 3500 ml Balance 800 ml -2800 ml Exam GENERAL: Elderly [place] gentleman comfortable at rest VITAL SIGNS: per chart NECK: Supple. No JVD or lymphadenopathy. CARDIAC EXAM: S1, S2. No added sounds or murmurs. CHEST: clear bilaterally, No added sounds, rales or wheezes ABDOMEN: Soft, nontender. No guarding or rebound. EXTREMITIES: No cyanosis, clubbing or edema. NEUROLOGIC: Generalized weakness. No focal deficits. Results/Medications Result Diagram: 05/03/17 0642 05/03/17 0642 Results 24 hrs Laboratory Tests Test 05/02/17 17:24 05/02/17 21:22 05/03/17 06:42 05/03/17 08:11 Bedside Glucose 115 78 162 White Blood Count 23.7 H Red Blood Count 2.33 L Hemoglobin 7.3 L Hematocrit 21.1 L Mean Corpuscular Volume 90.6 Mean Corpuscular Hemoglobin 31.3 Mean Corpuscular Hemoglobin Concent 34.6 Red Cell Distribution Width 17.3 H Platelet Count 273 Mean Platelet Volume 11.6 H Neutrophils % Segmented Neutrophils % (Manual) 63 Band Neutrophils % (Manual) 3 Lymphocytes % Lymphocytes % (Manual) 24 Monocytes % Monocytes % (Manual) 7 Eosinophils % Basophils % Metamyelocytes % (manual) 1 H Promyelocytes % (Manual) 2 H Nucleated Red Blood Cells % 0.7 H Neutrophils # Neutrophils # (Manual) 15.1 H Band Neutrophils # 0.7 H Absolute Lymphocytes (Manual) 5.6 H Lymphocytes # Monocytes # Absolute Monocytes (Manual) 1.6 H Eosinophils # Basophils # Metamyelocytes # 0.2 H Promyelocytes # 0.4 H Nucleated Red Blood Cells # Platelet Estimate NORMAL Giant Platelets 1 H Polychromasia 3+ Poikilocytosis 3+ Anisocytosis 2+ Microcytosis 1+ Macrocytosis 1+ Sodium Level 136 Potassium Level 3.6 Chloride Level 95 L Carbon Dioxide Level 29 Anion Gap 16 Blood Urea Nitrogen 89 H Creatinine 4.99 H Glucose Level 84 # Calcium Level 8.6 Test 05/03/17 09:27 05/03/17 12:13 Bedside Glucose 169 172 Medications Current Medications Ondansetron HCl (Zofran Tab) 4 mg Q6H PRN PO NAUSEA AND/OR VOMITING; Start at 23:00 Nitroglycerin (Nitroglycerin (Sl Tab) 0.4 Mg) 1 tab Q5M PRN SL CHEST PAIN; Start 04/24/17 at 23:00 Docusate Sodium (Colace) 100 mg Q12H PRN PO CONSTIPATION; Start 04/24/17 at 23 :00 Bisacodyl (Dulcolax) 5 mg DAILY PRN PO CONSTIPATION; Start 04/24/17 at 23:00 Atorvastatin Calcium (Lipitor) 80 mg QHS PO Last administered on 05/02/17 21: 25; Admin Dose 80 MG; Start 04/25/17 at 21:00 Ergocalciferol (Drisdol) 50,000 unit Mo@09 PO Last administered on 04/29/17 17 :21; Admin Dose 50,000 UNIT; Start 04/24/17 at 23:00 Ferrous Sulfate (Ferrous Sulfate (Ec)) 325 mg DAILY PO Last administered on 09:16; Admin Dose 325 MG; Start 04/25/17 at 09:00 Multivit/Ca Carb/ B Cmplx/FA/Prenat (Isabel-Brenda) 1 tab DAILY PO Last administered on 05/03/17 09:16; Admin Dose 1 TAB; Start 04/25/17 at 09:00 Pantoprazole (Protonix Tab) 40 mg DAILY@06 PO Last administered on 05/03/17 06 :42; Admin Dose 40 MG; Start 04/25/17 at 06:00 Guaifenesin/ Dextromethorphan (Mucinex Dm) 1 tab BID PO Last administered on 09:16; Admin Dose 1 TAB; Start 04/25/17 at 03:15 Hydralazine HCl (Apresoline) 10 mg Q4H PRN IV ELEVATED BLOOD PRESSURE Last administered on 05/03/17 01:01; Admin Dose 10 MG; Start 04/25/17 at 03:30 Diagnostic Test (Pha) (Accu-Chek) 1 ea 02 XX Last administered on 05/01/17 02: 07; Admin Dose 1 EA; Start 04/26/17 at 02:00 Citric Acid/ Sodium Citrate (Bicitra) 30 ml TID PO Last administered on 09:15; Admin Dose 30 ML; Start 04/25/17 at 13:00 Aspirin (Aspirin) 81 mg DAILY PO Last administered on 04/30/17 10:05; Admin Dose 81 MG; Start 04/25/17 at 12:00; Status Future Hold Heparin Sodium (Porcine) (Heparin (5000 Units/0.5 ml)) 5,000 unit BID SC Last administered on 05/03/17 09:19; Admin Dose 5,000 UNIT; Start 04/26/17 at 09:00 Miscellaneous Information 1 ea NOTE XX Last administered on 04/30/17 17:45; Admin Dose 1 EA; Start 04/25/17 at 12:00 Glucose (Glutose) 15 gm Q15M PRN PO DECREASED GLUCOSE; Start 04/25/17 at 12:00 Glucose (Glutose) 22.5 gm Q15M PRN PO DECREASED GLUCOSE; Start 04/25/17 at 12: 00 Dextrose (D50w Syringe) 25 ml Q15M PRN IV DECREASED GLUCOSE; Start 04/25/17 at 12:00 Dextrose (D50w Syringe) 50 ml Q15M PRN IV DECREASED GLUCOSE; Start 04/25/17 at 12:00 Glucagon (Glucagen) 1 mg Q15M PRN IM DECREASED GLUCOSE; Start 04/25/17 at 12: 00 Glucose (Glutose) 15 gm Q15M PRN BUCCAL DECREASED GLUCOSE; Start 04/25/17 at 12:00 Furosemide (Lasix) 20 mg BID IV Last administered on 05/03/17 09:18; Admin Dose 20 MG; Start 04/26/17 at 09:00 Fish Oil (Fish Oil) 2,000 mg BID PO Last administered on 05/03/17 09:16; Admin Dose 2,000 MG; Start 04/27/17 at 21:00 EZETIMIBE (Zetia) 10 mg DAILY PO Last administered on 05/03/17 09:16; Admin Dose 10 MG; Start 04/28/17 at 09:00 Metoprolol Succinate (Toprol Xl) 25 mg DAILY PO Last administered on 05/03/17 09:18; Admin Dose 25 MG; Start 04/27/17 at 11:00 Morphine Sulfate (morphine) 2 mg Q4H PRN IV Pain Last administered on 10:24; Admin Dose 2 MG; Start 04/28/17 at 09:00 Linagliptin (Tradjenta) 5 mg DAILY PO Last administered on 05/03/17 09:17; Admin Dose 5 MG; Start 04/28/17 at 12:00 Tiotropium [place] (Spiriva) 1 inh DAILY INH Last administered on 05/03/17 09: 16; Admin Dose 1 INH; Start 04/30/17 at 13:30 Salmeterol Xinafoate/ Fluticasone (Advair 250/50 Diskus) 1 inh BID INH Last administered on 05/03/17 09:16; Admin Dose 1 INH; Start 04/30/17 at 21:00 Insulin Glargine (Lantus) 40 unit BID SC Last administered on 05/03/17 09:30; Admin Dose 40 UNIT; Start 05/01/17 at 21:00 Amlodipine Besylate (Norvasc) 5 mg BID PO ; Start 05/03/17 at 21:00 Assessment/Plan Chief Complaint/Hosp Course Assessment 1. Patient admitted with mild pulmonary edema with COPD exacerbation with interval improvement. 2. End-stage renal disease, on hemodialysis. 3. Anemia. Questionable GI bleed with drop in hemoglobin noted. 4. Diabetes. With hyperglycemia secondary to systemic steroids. 5. History of DVT. 6. History of hypertension. Plan 1. Continue hemodialysis consider transfusion of packed red blood cells 2. Decrease steroids 3. Endoscopy pending. Long discussion with family at bedside. Problems: BROOKE MARIE MD, [facility] May 03, 2017 14:51
--- NOTE | 2017-05-03 14:57 | CONS ---
Date/Time of Note Date/Time of Note DATE: 05/03/17 TIME: 14:55 Assessment/Plan Assessment/Plan Chief Complaint/Hosp Course Pleasant [place]ian gentleman with his family present in the room reporting a 30 year history of diabetes mellitus type 2. He had been on oral agent therapy but as his kidneys declined he was transitioned over to a multiple daily injection regimen using Lantus and NovoLog. He intermittently takes full dose Januvia 100 mg despite his renal dysfunction Problems: (1) Diabetes mellitus type 2 in obese Status: Chronic Comment: Blood sugar control at this time is actually excellent. Coming off the steroids is allowed his sugars to come into line. May actually get him back off on his insulin dosing as I think that may be on the verge of overshooting our goals (2) End stage renal disease on dialysis due to type 2 diabetes mellitus Status: Chronic Comment: As per nephrology continue hemodialysis. (3) COPD (chronic obstructive pulmonary disease) Status: Chronic Comment: Breathing is much better and he is now off of parenteral steroids Qualifiers: COPD type: emphysema Emphysema type: unspecified Qualified Code: J43.9 - Pulmonary emphysema, unspecified emphysema type (4) Essential hypertension Status: Chronic Comment: Adequate control blood pressure (5) Hepatitis C antibody positive in blood Status: Acute Comment: Outpatient treatment of hepatitis C (6) Anemia, chronic renal failure Status: Chronic Comment: Patient is receiving another transfusion is for upper endoscopy today. Qualifiers: Chronic kidney disease stage: stage 5 Qualified Code: N18.5 - Anemia of chronic renal failure, stage 5 Consultation Date/Type/Reason Admit Date/Time Apr 24, 2017 at 19:05 Initial Consult Date 04/27/17 Type of Consultation: Endocrinology Reason for Consultation Diabetes on a multiple daily injection regimen with end-stage renal disease and recurrent anemia-possible GI blood loss Referring Provider: NANY PRIEST NP 24 HR Interval Summary Free Text/Dictation Patient this time wishes to be able to take p.o. and is somewhat disappointed that he cannot pending the EGD Exam/Review of Systems Vital Signs Vitals Vital Signs Date Time Temp Pulse Resp B/P Pulse Ox O2 Delivery O2 Flow Rate FiO2 05/03/17 12:04 97 05/03/17 12:00 Nasal Cannula 2.0 05/03/17 11:51 98.2 20 174/63 96 Intake and Output 05/02/17 05/02/17 05/03/17 14:59 22:59 06:59 Intake Total 800 ml 200 ml Balance 800 ml 200 ml Exam Constitutional: alert, oriented Respiratory: clear to auscultation, normal air movement Cardiovascular: nl pulses, regular rate and rhythm Results Result Diagram: 05/03/17 0642 05/03/17 0642 Results 24 hrs Laboratory Tests Test 05/02/17 17:24 05/02/17 21:22 05/03/17 06:42 05/03/17 08:11 Bedside Glucose 115 78 162 White Blood Count 23.7 H Red Blood Count 2.33 L Hemoglobin 7.3 L Hematocrit 21.1 L Mean Corpuscular Volume 90.6 Mean Corpuscular Hemoglobin 31.3 Mean Corpuscular Hemoglobin Concent 34.6 Red Cell Distribution Width 17.3 H Platelet Count 273 Mean Platelet Volume 11.6 H Neutrophils % Segmented Neutrophils % (Manual) 63 Band Neutrophils % (Manual) 3 Lymphocytes % Lymphocytes % (Manual) 24 Monocytes % Monocytes % (Manual) 7 Eosinophils % Basophils % Metamyelocytes % (manual) 1 H Promyelocytes % (Manual) 2 H Nucleated Red Blood Cells % 0.7 H Neutrophils # Neutrophils # (Manual) 15.1 H Band Neutrophils # 0.7 H Absolute Lymphocytes (Manual) 5.6 H Lymphocytes # Monocytes # Absolute Monocytes (Manual) 1.6 H Eosinophils # Basophils # Metamyelocytes # 0.2 H Promyelocytes # 0.4 H Nucleated Red Blood Cells # Platelet Estimate NORMAL Giant Platelets 1 H Polychromasia 3+ Poikilocytosis 3+ Anisocytosis 2+ Microcytosis 1+ Macrocytosis 1+ Sodium Level 136 Potassium Level 3.6 Chloride Level 95 L Carbon Dioxide Level 29 Anion Gap 16 Blood Urea Nitrogen 89 H Creatinine 4.99 H Glucose Level 84 # Calcium Level 8.6 Test 05/03/17 09:27 05/03/17 12:13 Bedside Glucose 169 172 Medications Medications Current Medications Ondansetron HCl (Zofran Tab) 4 mg Q6H PRN PO NAUSEA AND/OR VOMITING; Start at 23:00 Nitroglycerin (Nitroglycerin (Sl Tab) 0.4 Mg) 1 tab Q5M PRN SL CHEST PAIN; Start 04/24/17 at 23:00 Docusate Sodium (Colace) 100 mg Q12H PRN PO CONSTIPATION; Start 04/24/17 at 23 :00 Bisacodyl (Dulcolax) 5 mg DAILY PRN PO CONSTIPATION; Start 04/24/17 at 23:00 Atorvastatin Calcium (Lipitor) 80 mg QHS PO Last administered on 05/02/17 21: 25; Admin Dose 80 MG; Start 04/25/17 at 21:00 Ergocalciferol (Drisdol) 50,000 unit Mo@09 PO Last administered on 04/29/17 17 :21; Admin Dose 50,000 UNIT; Start 04/24/17 at 23:00 Ferrous Sulfate (Ferrous Sulfate (Ec)) 325 mg DAILY PO Last administered on 09:16; Admin Dose 325 MG; Start 04/25/17 at 09:00 Multivit/Ca Carb/ B Cmplx/FA/Prenat (Isabel-Brenda) 1 tab DAILY PO Last administered on 05/03/17 09:16; Admin Dose 1 TAB; Start 04/25/17 at 09:00 Pantoprazole (Protonix Tab) 40 mg DAILY@06 PO Last administered on 05/03/17 06 :42; Admin Dose 40 MG; Start 04/25/17 at 06:00 Guaifenesin/ Dextromethorphan (Mucinex Dm) 1 tab BID PO Last administered on 09:16; Admin Dose 1 TAB; Start 04/25/17 at 03:15 Hydralazine HCl (Apresoline) 10 mg Q4H PRN IV ELEVATED BLOOD PRESSURE Last administered on 05/03/17 01:01; Admin Dose 10 MG; Start 04/25/17 at 03:30 Diagnostic Test (Pha) (Accu-Chek) 1 ea 02 XX Last administered on 05/01/17 02: 07; Admin Dose 1 EA; Start 04/26/17 at 02:00 Citric Acid/ Sodium Citrate (Bicitra) 30 ml TID PO Last administered on 09:15; Admin Dose 30 ML; Start 04/25/17 at 13:00 Aspirin (Aspirin) 81 mg DAILY PO Last administered on 04/30/17 10:05; Admin Dose 81 MG; Start 04/25/17 at 12:00; Status Future Hold Heparin Sodium (Porcine) (Heparin (5000 Units/0.5 ml)) 5,000 unit BID SC Last administered on 05/03/17 09:19; Admin Dose 5,000 UNIT; Start 04/26/17 at 09:00 Miscellaneous Information 1 ea NOTE XX Last administered on 04/30/17 17:45; Admin Dose 1 EA; Start 04/25/17 at 12:00 Glucose (Glutose) 15 gm Q15M PRN PO DECREASED GLUCOSE; Start 04/25/17 at 12:00 Glucose (Glutose) 22.5 gm Q15M PRN PO DECREASED GLUCOSE; Start 04/25/17 at 12: 00 Dextrose (D50w Syringe) 25 ml Q15M PRN IV DECREASED GLUCOSE; Start 04/25/17 at 12:00 Dextrose (D50w Syringe) 50 ml Q15M PRN IV DECREASED GLUCOSE; Start 04/25/17 at 12:00 Glucagon (Glucagen) 1 mg Q15M PRN IM DECREASED GLUCOSE; Start 04/25/17 at 12: 00 Glucose (Glutose) 15 gm Q15M PRN BUCCAL DECREASED GLUCOSE; Start 04/25/17 at 12:00 Furosemide (Lasix) 20 mg BID IV Last administered on 05/03/17 09:18; Admin Dose 20 MG; Start 04/26/17 at 09:00 Fish Oil (Fish Oil) 2,000 mg BID PO Last administered on 05/03/17 09:16; Admin Dose 2,000 MG; Start 04/27/17 at 21:00 EZETIMIBE (Zetia) 10 mg DAILY PO Last administered on 05/03/17 09:16; Admin Dose 10 MG; Start 04/28/17 at 09:00 Metoprolol Succinate (Toprol Xl) 25 mg DAILY PO Last administered on 05/03/17 09:18; Admin Dose 25 MG; Start 04/27/17 at 11:00 Morphine Sulfate (morphine) 2 mg Q4H PRN IV Pain Last administered on 10:24; Admin Dose 2 MG; Start 04/28/17 at 09:00 Linagliptin (Tradjenta) 5 mg DAILY PO Last administered on 05/03/17 09:17; Admin Dose 5 MG; Start 04/28/17 at 12:00 Tiotropium [place] (Spiriva) 1 inh DAILY INH Last administered on 05/03/17 09: 16; Admin Dose 1 INH; Start 04/30/17 at 13:30 Salmeterol Xinafoate/ Fluticasone (Advair 250/50 Diskus) 1 inh BID INH Last administered on 05/03/17 09:16; Admin Dose 1 INH; Start 04/30/17 at 21:00 Amlodipine Besylate (Norvasc) 5 mg BID PO ; Start 05/03/17 at 21:00 Insulin Glargine (Lantus) 35 unit BID SC ; Start 05/03/17 at 21:00; Status MARA GARCÍA MD May 03, 2017 14:57
--- NOTE | 2017-05-03 17:16 | HPN ---
Date/Time of Note Date/Time of Note DATE: 05/03/17 TIME: 17:16 Interval H&P Admission Note Pt. seen H&P reviewed: No system changes GERMÁN WAY MD May 03, 2017 17:16
[2017-05-03] MEDS ORDERED: ETOMIDATE 20 MG INJ ONE (17:27)
[2017-05-03] MEDS ORDERED: PROPOFOL 20 ML ONE (17:27)
[2017-05-03] MEDS ORDERED: MIDAZOLAM 1 MG/ML 2 ML INJ ONE (17:27)
[2017-05-03] MEDS ORDERED: LIDOCAINE 2% (SDV) 5 ML INJ ONE (17:27)
--- NOTE | 2017-05-03 17:45 | OPPN ---
Date/Time of Note Date/Time of Note DATE: 05/03/17 TIME: 17:33 Proc Note GI Procedure Date 05/03/17 Indication: other (Anemia) Pre-procedure Diagnosis Anemia Post-procedure Diagnosis Impression: Moderate distal esophagitis. Post distal gastrectomy Billroth II anastomosis. Moderate bile reflux gastritis. Rule out H. pylori infection. Biopsies obtained Normal afferent and efferent jejunal mucosa Plan: Tinea PPI therapy Add liquid Carafate Review pathology . Procedure Performed: Endoscopy (Plus biopsies) Surgeon GERMÁN WAY MD See signature line Drill Doctor none Anesthesia Type: MAC, other (LOCAL) Anesthesiologist: LISSA EDEN MD Tourniquet Time none EBL none Transfusion required none Biopsy 1: Gastric body Grafts/Implants none Tubes/Drains none Complication(s) none Disposition: PACU Procedure Description After informed consent, with the patient/relatives understanding the procedure, its indications, potential risks and complications, including but not limited to : allergic reaction, bleeding, perforation or infection, and after all pertinent questions were answered to the patients satisfaction, the patient/ relatives signed witnessed informed consent. Following this, premedication was administered slowly IV push under careful cardiovascular and respiratory monitoring with pulse oximetry, automatic blood pressure, and lunchroom monitor. Once the sedative effect was achieved the patient was place in the left lateral decubitus, the panendoscope was introduced and advanced under visual control. Careful examination of the upper gastrointestinal tract, both on insertion as well as withdrawal of the instrument disclosing the following findings: ESOPHAGUS: the mucosa of the entire esophagus was carefully examined and showed the following findings: There is moderate erythema edema the mucosa of the esophagogastric junction. Otherwise the mucosa appears within normal limits. There is no evidence of varices, neoplasm, or stricture. No Hiatal Hernia identified. STOMACH: Upon entrance to the stomach air was insufflated, the gastric greco distended normally. Distal gastrectomy with Billroth II anastomosis is present. There is evidence of previous surgery with a distal gastrectomy and Billroth II anastomosis. The gastric mucosa shows erythema edema and bile staining. Biopsies were obtained to rule out H. pylori infection. Otherwise the mucosa appears within normal limits with no abnormalities. There is no evidence of gastritis, ulcers or neoplasm. JEJUNUM: The afferent and efferent loops of jejunum were carefully examined and showed the following findings: The jejunal mucosa appears within normal limits with no evidence of ulceration, neoplasm.. Copies To: CC: GERMÁN WAY MD, MORDO MD May 03, 2017 17:45
--- NOTE | 2017-05-03 17:48 | OPPN ---
Date/Time of Note Date/Time of Note DATE: 05/03/17 TIME: 17:45 Proc Note GI Procedure Date 05/03/17 Indication: other (Anemia) Pre-procedure Diagnosis Anemia Post-procedure Diagnosis Impression: Suboptimal examination due to poor preparation No gross lesions present. Moderate-sized internal hemorrhoids. Plan: Continue observation If evidence of bleeding will require more thorough examination with adequate preparation If no evidence of further bleeding repeat colonoscopy within 6 months to a year is recommended . Procedure Performed: Colonoscopy Surgeon GERMÁN WAY MD See signature line Tube Repairer none Anesthesia Type: MAC, other (LOCAL) Anesthesiologist: LISSA EDEN MD Tourniquet Time none EBL none Transfusion required none Biopsy 1: None Grafts/Implants none Tubes/Drains none Complication(s) none Disposition: PACU Procedure Description After informed consent, with the patient/relatives understanding the procedure, its indications and potential risks and complications, including but not limited to: Allergic reaction, bleeding, perforation, infection, and after all pertinent questions were answered to the patient's satisfaction, the patient/ relatives signed the witnessed informed consent. Following this, premedication was administered slowly IV push under careful cardiovascular and respiratory monitoring with pulse OXIMETRY, automatic blood pressure, and order checker packer processer. Once the sedative effect was achieved, the patient was placed in the left lateral decubitus position, digital rectal examination was performed. The colonoscope was then introduced and advanced under visual control throughout all segments of the colon including: the rectum, sigmoid, descending colon, splenic flexure, transverse colon, hepatic flexure, ascending colon and finally reaching the cecum which was clearly identified by transillumination, finger indentation and the ileocecal valve. Careful examination of the mucosa of the lower gastrointestinal tract both on insertion as well as withdrawal of the instrument disclosed the following findings: PREPARATION QUALITY: [Poor, procedure completed] RECTAL EXAM: The anorectal area was visualized examined and digital rectal examination performed with the following findings: No evidence of perirectal disease, no masses. COLONIC MUCOSA: The mucosa of all segments of the colon was carefully examined and showed the following findings: The preparation is suboptimal with large areas of obscured by semisolid stool. Extensive lavage was applied but even with this at least 30% of the mucosa was obscured. The visualized examined mucosa appears within normal limits. There is no evidence of inflammatory changes, diverticular formation, polyps or neoplasms, vascular malformation, or any other abnormality. Moderate size internal hemorrhoids are noted The instrument was then withdrawn, the patient tolerated the procedure well and was transferred out of the Endoscopy Suite awake and in good condition to continue recovery under observation. Copies To: CC: GERMÁN WAY MD, MORDO MD May 03, 2017 17:48
[2017-05-03] MEDS ORDERED: hydrALAzine 20 MG INJ IV PRN (18:00)
[2017-05-03] MEDS ORDERED: LABETALOL HCL 20MG INJ IV PRN (18:00)
[2017-05-03] MEDS ORDERED: ONDANSETRON 4 MG INJ IV PRN (18:00)
--- NOTE | 2017-05-03 18:01 | CONS ---
Date/Time of Note Date/Time of Note DATE: 05/03/17 TIME: 17:59 Assessment/Plan Assessment/Plan Additional Assessment/Plan 1. 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 H/o CKD due to diabetic nehropathy as per pt was stage IV/V with eGFR 15 as outpatient 3. Acute hyperkalemia due to TROY on CKD - resolved after pt gets started on HD 4. Metabolic acidosis due to worsenign renal failure 5. H/ CAD S/p previous coronary angiogram as per patient 6. Hypertension 7. Type II DM 8. Hyperlipidemia 9. Acute NSETMI due to CHF 10. severe anemia despite getting PRBC, concerned abotu GI bleeding, Plan : hepatitis C antibody positive, Hepatitis A antibody positive EGD showed distal esophagitis, S/p HD today 3 L removed , will plan for HD tomorrow after permacath placement Renal US showed small size kidneys, no hydronephrosis, c/w CKD on Epogen for anemia will follow up Consultation Date/Type/Reason Admit Date/Time Apr 24, 2017 at 19:05 Initial Consult Date 04/25/17 Type of Consultation: NEPHROLOG Y Referring Provider: NANY PRIETS NP 24 HR Interval Summary Free Text/Dictation s/p HD today 3 L removed, BP stable Exam/Review of Systems Vital Signs Vitals Vital Signs Date Time Temp Pulse Resp B/P Pulse Ox O2 Delivery O2 Flow Rate FiO2 05/03/17 17:28 66 18 189/85 100 Nasal Cannula 3.0 05/03/17 16:29 98.0 Intake and Output 05/02/17 05/02/17 05/03/17 15:00 23:00 07:00 Intake Total 800 ml 700 ml Output Total 3500 ml Balance 800 ml -2800 ml Exam Constitutional: alert Respiratory: clear to auscultation, diminished breath sounds, normal air movement Cardiovascular: nl pulses, regular rate and rhythm Gastrointestinal: non-tender, soft Musculoskeletal: muscle weakness, nl extremities to inspection, swelling Extremities: calf tenderness, normal pulses 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: ACADEMY DIRECTOR II-XII intact, nl mental status, nl speech, nl strength Results Result Diagram: 05/03/17 0642 05/03/17 0642 Results 24 hrs Laboratory Tests Test 05/02/17 21:22 05/03/17 06:42 05/03/17 08:11 05/03/17 09:27 Bedside Glucose 78 162 169 White Blood Count 23.7 H Red Blood Count 2.33 L Hemoglobin 7.3 L Hematocrit 21.1 L Mean Corpuscular Volume 90.6 Mean Corpuscular Hemoglobin 31.3 Mean Corpuscular Hemoglobin Concent 34.6 Red Cell Distribution Width 17.3 H Platelet Count 273 Mean Platelet Volume 11.6 H Neutrophils % Segmented Neutrophils % (Manual) 63 Band Neutrophils % (Manual) 3 Lymphocytes % Lymphocytes % (Manual) 24 Monocytes % Monocytes % (Manual) 7 Eosinophils % Basophils % Metamyelocytes % (manual) 1 H Promyelocytes % (Manual) 2 H Nucleated Red Blood Cells % 0.7 H Neutrophils # Neutrophils # (Manual) 15.1 H Band Neutrophils # 0.7 H Absolute Lymphocytes (Manual) 5.6 H Lymphocytes # Monocytes # Absolute Monocytes (Manual) 1.6 H Eosinophils # Basophils # Metamyelocytes # 0.2 H Promyelocytes # 0.4 H Nucleated Red Blood Cells # Platelet Estimate NORMAL Giant Platelets 1 H Polychromasia 3+ Poikilocytosis 3+ Anisocytosis 2+ Microcytosis 1+ Macrocytosis 1+ Sodium Level 136 Potassium Level 3.6 Chloride Level 95 L Carbon Dioxide Level 29 Anion Gap 16 Blood Urea Nitrogen 89 H Creatinine 4.99 H Glucose Level 84 # Calcium Level 8.6 Test 05/03/17 12:13 05/03/17 16:48 Bedside Glucose 172 199 Medications Medications Current Medications Ondansetron HCl (Zofran Tab) 4 mg Q6H PRN PO NAUSEA AND/OR VOMITING; Start at 23:00 Nitroglycerin (Nitroglycerin (Sl Tab) 0.4 Mg) 1 tab Q5M PRN SL CHEST PAIN; Start 04/24/17 at 23:00 Docusate Sodium (Colace) 100 mg Q12H PRN PO CONSTIPATION; Start 04/24/17 at 23 :00 Bisacodyl (Dulcolax) 5 mg DAILY PRN PO CONSTIPATION; Start 04/24/17 at 23:00 Atorvastatin Calcium (Lipitor) 80 mg QHS PO Last administered on 05/02/17t 21: 25; Admin Dose 80 MG; Start 04/25/17 at 21:00 Ergocalciferol (Drisdol) 50,000 unit Mo@09 PO Last administered on 04/29/17 17 :21; Admin Dose 50,000 UNIT; Start 04/24/17 at 23:00 Ferrous Sulfate (Ferrous Sulfate (Ec)) 325 mg DAILY PO Last administered on 09:16; Admin Dose 325 MG; Start 04/25/17 at 09:00 Multivit/Ca Carb/ B Cmplx/FA/Prenat (Isabel-Brenda) 1 tab DAILY PO Last administered on 05/03/17 09:16; Admin Dose 1 TAB; Start 04/25/17 at 09:00 Pantoprazole (Protonix Tab) 40 mg DAILY@06 PO Last administered on 05/03/17 06 :42; Admin Dose 40 MG; Start 04/25/17 at 06:00 Guaifenesin/ Dextromethorphan (Mucinex Dm) 1 tab BID PO Last administered on 09:16; Admin Dose 1 TAB; Start 04/25/17 at 03:15 Hydralazine HCl (Apresoline) 10 mg Q4H PRN IV ELEVATED BLOOD PRESSURE Last administered on 05/03/17 01:01; Admin Dose 10 MG; Start 04/25/17 at 03:30 Diagnostic Test (Pha) (Accu-Chek) 1 ea 02 XX Last administered on 05/01/17 02: 07; Admin Dose 1 EA; Start 04/26/17 at 02:00 Citric Acid/ Sodium Citrate (Bicitra) 30 ml TID PO Last administered on 09:15; Admin Dose 30 ML; Start 04/25/17 at 13:00 Aspirin (Aspirin) 81 mg DAILY PO Last administered on 04/30/17 10:05; Admin Dose 81 MG; Start 04/25/17 at 12:00; Status Future Hold Heparin Sodium (Porcine) (Heparin (5000 Units/0.5 ml)) 5,000 unit BID SC Last administered on 05/03/17 09:19; Admin Dose 5,000 UNIT; Start 04/26/17 at 09:00 Miscellaneous Information 1 ea NOTE XX Last administered on 04/30/17 17:45; Admin Dose 1 EA; Start 04/25/17 at 12:00 Glucose (Glutose) 15 gm Q15M PRN PO DECREASED GLUCOSE; Start 04/25/17 at 12:00 Glucose (Glutose) 22.5 gm Q15M PRN PO DECREASED GLUCOSE; Start 04/25/17 at 12: 00 Dextrose (D50w Syringe) 25 ml Q15M PRN IV DECREASED GLUCOSE; Start 04/25/17 at 12:00 Dextrose (D50w Syringe) 50 ml Q15M PRN IV DECREASED GLUCOSE; Start 04/25/17 at 12:00 Glucagon (Glucagen) 1 mg Q15M PRN IM DECREASED GLUCOSE; Start 04/25/17 at 12: 00 Glucose (Glutose) 15 gm Q15M PRN BUCCAL DECREASED GLUCOSE; Start 04/25/17 at 12:00 Furosemide (Lasix) 20 mg BID IV Last administered on 05/03/17 09:18; Admin Dose 20 MG; Start 04/26/17 at 09:00 Fish Oil (Fish Oil) 2,000 mg BID PO Last administered on 05/03/17 09:16; Admin Dose 2,000 MG; Start 04/27/17 at 21:00 EZETIMIBE (Zetia) 10 mg DAILY PO Last administered on 05/03/17 09:16; Admin Dose 10 MG; Start 04/28/17 at 09:00 Metoprolol Succinate (Toprol Xl) 25 mg DAILY PO Last administered on 05/03/17 09:18; Admin Dose 25 MG; Start 04/27/17 at 11:00 Morphine Sulfate (morphine) 2 mg Q4H PRN IV Pain Last administered on 10:24; Admin Dose 2 MG; Start 04/28/17 at 09:00 Linagliptin (Tradjenta) 5 mg DAILY PO Last administered on 05/03/17 09:17; Admin Dose 5 MG; Start 04/28/17 at 12:00 Tiotropium [place] (Spiriva) 1 inh DAILY INH Last administered on 05/03/17 09: 16; Admin Dose 1 INH; Start 04/30/17 at 13:30 Salmeterol Xinafoate/ Fluticasone (Advair 250/50 Diskus) 1 inh BID INH Last administered on 05/03/17 09:16; Admin Dose 1 INH; Start 04/30/17 at 21:00 Amlodipine Besylate (Norvasc) 5 mg BID PO ; Start 05/03/17 at 21:00 Insulin Glargine (Lantus) 35 unit BID SC ; Start 05/03/17 at 21:00 RAQUEL MCDOWELL MD May 03, 2017 18:01
[2017-05-03] MEDS: ATORVASTATIN 80 MG TAB PO SCH (21:45)
--- NOTE | 2017-05-03 23:48 | PN ---
Date/Time of Note Date/Time of Note DATE: 05/03/17 TIME: 23:48 Assessment/Plan Lines/Catheters IV Catheter Type (from [facility]): PICC Line Pierre in Place (from [facility]): No Assessment/Plan Chief Complaint/Hosp Course -Acute on chronic kidney disease: It seems the patient's renal failure has progressed to possibly end-stage renal, in which the patient requires permanent hemodialysis. As our nephrology colleagues are evaluating the patient at the moment, the patient will require hemodialysis and will require catheter placement. -S/P right CFV Madi catheter -Will plan for perm catheter placement -Patient has multiple access options when medically optimized -Optimize vascular status (BP meds, diet, nutrition, exercise, sugar control, antiplatelets). -Bilateral lower extremity atherosclerosis: The patient has no significant ulcerations or gangrene for now. Will plan to follow with the patient's vascular surveillance as an outpatient. -Discussed findings, plan and management with the patient and the family at the bedside and they understand. -Thank you for allowing us to partake in the care of your patient. Please call with any questions. Problems: Subjective 24 Hr Interval Summary Constitutional: improved, no complaints Exam/Review of Systems Vital Signs Vitals Vital Signs Date Time Temp Pulse Resp B/P Pulse Ox O2 Delivery O2 Flow Rate FiO2 05/04/17 15:50 98.2 62 17 190/59 99 Nasal Cannula 2.0 Intake and Output 05/03/17 05/03/17 05/04/17 14:59 22:59 06:59 Intake Total 500 ml Output Total 3500 ml Balance -3000 ml Exam Free Text/Dictation GENERAL: Alert and oriented x3; improving. PULMONARY: Bilateral crackles at the bases. CARDIOVASCULAR: S1, S2 present. ABDOMEN: Soft, nontender, nondistended. Bowel sounds positive. Truncal obesity. EXTREMITIES: Right lower extremity palpable femoral pulse, nonpalpable pedal pulse. Motor and sensory intact. Capillary refill 3 seconds. Madi intact and functional Left lower extremity: Palpable femoral pulse, nonpalpable pedal pulse. Motor and sensory intact. Capillary refill 3 seconds. Results Result Diagram: 05/04/17 0622 05/04/17 0622 VANIA PEREYRA MD May 03, 2017 23:48
[2017-05-04] VITALS (30 sets, daily range): BP systolic 117–190; BP diastolic 59–89; PULSE 62–91; RESP 17–20
[2017-05-04] MEDS: ALBUTEROL/IPRATROPIUM (NEB) 3 ML AMP HHN SCH ×6 (01:00→20:07)
[2017-05-04] MEDS: ACCU-CHEK XX SCH (02:00)
[2017-05-04] MEDS: PANTOPRAZOLE (EC) 40 MG TAB PO SCH (06:08)
[2017-05-04 07:36] LABS: CALCIUM 8.7 mg/dl (8.4-10.2); CREATININE 4.22 mg/dl (0.61-1.24); POTASSIUM 3.4 mmol/L (3.5-5.1)
[2017-05-04] MEDS: INSULIN ASPART [NOVOLOG] 3 ML PEN SC SCH ×7 (07:55→21:00)
--- NOTE | 2017-05-04 08:35 | CONS ---
Date/Time of Note Date/Time of Note DATE: 05/04/17 TIME: 08:33 Assessment/Plan Assessment/Plan Chief Complaint/Hosp Course Volume overload Acute kidney injury with history of CKD, started on hemodialysis Acute decompensated diastolic congestive heart failure Diabetes CAD with history of PCI over 10 years ago Hypertension Dyslipidemia History of DVT, previously on anticoagulation Acute blood loss anemia status post blood transfusion Intermittent Mobitz type I, asymptomatic Problems: Additional Assessment/Plan 1) will dc metoprolol and start carvedilol given persistently elevated BP 2) AC once ok w GI Consultation Date/Type/Reason Admit Date/Time Apr 24, 2017 at 19:05 Initial Consult Date 05/01/17 Type of Consultation: cv Referring Provider: NANY PRIEST NP 24 HR Interval Summary Free Text/Dictation no chest pain, no sob, no palpitations Detailed Summary Respiratory: no complaints Cardiovascular: no complaints Gastrointestinal: no complaints Musculoskeletal: no complaints Skin: no complaints Neurologic: no complaints Exam/Review of Systems Vital Signs Vitals Vital Signs Date Time Temp Pulse Resp B/P Pulse Ox O2 Delivery O2 Flow Rate FiO2 05/04/17 08:20 79 05/04/17 08:04 98.0 18 176/76 96 05/04/17 01:06 2.0 05/03/17 18:50 Nasal Cannula Exam Constitutional: alert, oriented Head: atraumatic, normocephalic Neck: supple Respiratory: clear to auscultation Cardiovascular: regular rate and rhythm Gastrointestinal: soft Musculoskeletal: nl extremities to inspection Extremities: normal pulses Results Result Diagram: 05/03/17 0642 05/04/17 0622 Results 24 hrs Laboratory Tests Test 05/03/17 09:27 05/03/17 12:13 05/03/17 16:48 05/03/17 21:43 Bedside Glucose 169 172 199 249 H Test 05/04/17 02:13 05/04/17 06:22 Bedside Glucose 215 White Blood Count Pending Red Blood Count Pending Hemoglobin Pending Hematocrit Pending Mean Corpuscular Volume Pending Mean Corpuscular Hemoglobin Pending Mean Corpuscular Hemoglobin Concent Pending Red Cell Distribution Width Pending Platelet Count Pending Mean Platelet Volume Pending Sodium Level 139 Potassium Level 3.4 L Chloride Level 99 Carbon Dioxide Level 29 Anion Gap 14 Blood Urea Nitrogen 62 H Creatinine 4.22 H Glucose Level 158 Calcium Level 8.7 Medications Medications Current Medications Ondansetron HCl (Zofran Tab) 4 mg Q6H PRN PO NAUSEA AND/OR VOMITING; Start at 23:00 Nitroglycerin (Nitroglycerin (Sl Tab) 0.4 Mg) 1 tab Q5M PRN SL CHEST PAIN; Start 04/24/17 at 23:00 Docusate Sodium (Colace) 100 mg Q12H PRN PO CONSTIPATION; Start 04/24/17 at 23 :00 Bisacodyl (Dulcolax) 5 mg DAILY PRN PO CONSTIPATION; Start 04/24/17 at 23:00 Atorvastatin Calcium (Lipitor) 80 mg QHS PO Last administered on 05/03/17 21: 45; Admin Dose 80 MG; Start 04/25/17 at 21:00 Ergocalciferol (Drisdol) 50,000 unit Mo@09 PO Last administered on 04/29/17 17 :21; Admin Dose 50,000 UNIT; Start 04/24/17 at 23:00 Ferrous Sulfate (Ferrous Sulfate (Ec)) 325 mg DAILY PO Last administered on 09:16; Admin Dose 325 MG; Start 04/25/17 at 09:00 Multivit/Ca Carb/ B Cmplx/FA/Prenat (Isabel-Brenda) 1 tab DAILY PO Last administered on 05/03/17 09:16; Admin Dose 1 TAB; Start 04/25/17 at 09:00 Pantoprazole (Protonix Tab) 40 mg DAILY@06 PO Last administered on 05/04/17 06 :08; Admin Dose 40 MG; Start 04/25/17 at 06:00 Guaifenesin/ Dextromethorphan (Mucinex Dm) 1 tab BID PO Last administered on 21:44; Admin Dose 1 TAB; Start 04/25/17 at 03:15 Hydralazine HCl (Apresoline) 10 mg Q4H PRN IV ELEVATED BLOOD PRESSURE Last administered on 05/03/17 01:01; Admin Dose 10 MG; Start 04/25/17 at 03:30 Diagnostic Test (Pha) (Accu-Chek) 1 ea 02 XX Last administered on 05/04/17 02: 00; Admin Dose 1 EA; Start 04/26/17 at 02:00 Citric Acid/ Sodium Citrate (Bicitra) 30 ml TID PO Last administered on 21:46; Admin Dose 30 ML; Start 04/25/17 at 13:00 Aspirin (Aspirin) 81 mg DAILY PO Last administered on 04/30/17 10:05; Admin Dose 81 MG; Start 04/25/17 at 12:00; Status Future Hold Heparin Sodium (Porcine) (Heparin (5000 Units/0.5 ml)) 5,000 unit BID SC Last administered on 05/03/17 22:04; Admin Dose 5,000 UNIT; Start 04/26/17 at 09:00 Miscellaneous Information 1 ea NOTE XX Last administered on 04/30/17 17:45; Admin Dose 1 EA; Start 04/25/17 at 12:00 Glucose (Glutose) 15 gm Q15M PRN PO DECREASED GLUCOSE; Start 04/25/17 at 12:00 Glucose (Glutose) 22.5 gm Q15M PRN PO DECREASED GLUCOSE; Start 04/25/17 at 12: 00 Dextrose (D50w Syringe) 25 ml Q15M PRN IV DECREASED GLUCOSE; Start 04/25/17 at 12:00 Dextrose (D50w Syringe) 50 ml Q15M PRN IV DECREASED GLUCOSE; Start 04/25/17 at 12:00 Glucagon (Glucagen) 1 mg Q15M PRN IM DECREASED GLUCOSE; Start 04/25/17 at 12: 00 Glucose (Glutose) 15 gm Q15M PRN BUCCAL DECREASED GLUCOSE; Start 04/25/17 at 12:00 Furosemide (Lasix) 20 mg BID IV Last administered on 05/03/17 09:18; Admin Dose 20 MG; Start 04/26/17 at 09:00 Fish Oil (Fish Oil) 2,000 mg BID PO Last administered on 05/03/17 21:45; Admin Dose 2,000 MG; Start 04/27/17 at 21:00 EZETIMIBE (Zetia) 10 mg DAILY PO Last administered on 05/03/17 09:16; Admin Dose 10 MG; Start 04/28/17 at 09:00 Metoprolol Succinate (Toprol Xl) 25 mg DAILY PO Last administered on 05/03/17 09:18; Admin Dose 25 MG; Start 04/27/17 at 11:00 Morphine Sulfate (morphine) 2 mg Q4H PRN IV Pain Last administered on 10:24; Admin Dose 2 MG; Start 04/28/17 at 09:00 Linagliptin (Tradjenta) 5 mg DAILY PO Last administered on 05/03/17 09:17; Admin Dose 5 MG; Start 04/28/17 at 12:00 Tiotropium [place] (Spiriva) 1 inh DAILY INH Last administered on 05/03/17 09: 16; Admin Dose 1 INH; Start 04/30/17 at 13:30 Salmeterol Xinafoate/ Fluticasone (Advair 250/50 Diskus) 1 inh BID INH Last administered on 05/03/17 21:46; Admin Dose 1 INH; Start 04/30/17 at 21:00 Amlodipine Besylate (Norvasc) 5 mg BID PO Last administered on 05/03/17 21:45 ; Admin Dose 5 MG; Start 05/03/17 at 21:00 Insulin Glargine (Lantus) 35 unit BID SC Last administered on 05/03/17 22:04; Admin Dose 35 UNIT; Start 05/03/17 at 21:00 AUDI BRADFORD MD May 04, 2017 08:34
[2017-05-04] MEDS: CITRIC ACID/SODIUM CITRATE 15 ML CUP PO SCH ×4 (09:00→21:01)
[2017-05-04] MEDS: GUAIFENESIN/DM (SR) TAB PO SCH ×3 (09:00→21:03)
[2017-05-04] MEDS: FERROUS SULFATE (EC) 325 MG TAB PO SCH ×2 (09:00→09:17)
[2017-05-04] MEDS: INSULIN GLARGINE [LANtus] 3 ML PEN SC SCH ×2 (09:00→21:00)
[2017-05-04] MEDS: HEPARIN 5,000 UNIT/0.5 ML VIAL SC SCH ×2 (09:00→21:00)
[2017-05-04] MEDS: SALMETEROL/FLUTICASONE 250/50 INHA INH SCH ×2 (09:07→21:01)
[2017-05-04] MEDS: TIOTROPIUM 18 MCG CAPSULE INHA DEV INH SCH (09:07)
[2017-05-04] MEDS: FISH OIL 1,000 MG CAP PO SCH ×2 (09:17→21:02)
[2017-05-04] MEDS: EZETIMIBE 10 MG TAB PO SCH (09:17)
[2017-05-04] MEDS: MULTIVIT/CA CARB/B CMPLX/FA TAB PO SCH (09:17)
[2017-05-04] MEDS: LINAGLIPTIN 5 MG TABLET PO SCH (09:18)
[2017-05-04] MEDS: AMLODIPINE 5 MG TAB PO SCH ×2 (09:18→21:02)
[2017-05-04 09:23] LABS: HEMATOCRIT 20.2 % (42.0-52.0); MEAN CORPUSCULAR HEMOGLOBIN 38.5 pg (29.0-33.0); MEAN CORPUSCULAR HGB CONC 39.1 g/dl (32.0-37.0); MEAN CORPUSCULAR VOLUME 98.5 fl (82.0-101.0); MEAN PLATELET VOLUME 13.4 fl (7.4-10.4); PLATELET COUNT 260 10^3/UL (140-440); RED BLOOD COUNT 2.05 10^6/ul (4.70-6.10); RED CELL DISTRIBUTION WIDTH 23.6 % (11.5-14.5); WHITE BLOOD COUNT 13.5 10^3/ul (4.8-10.8)
[2017-05-04 09:24] LABS: HEMOGLOBIN 7.9 g/dl (14.0-18.0)
[2017-05-04] MEDS: BUDESONIDE (NEB) 0.5MG/2ML AMP HHN SCH ×2 (10:03→20:00)
[2017-05-04 11:04] LABS: ANISOCYTOSIS 2+ (0-0); EOSINOPHILS % (M) 1 % (0-7); ERYTHROBLAST% (NRBC) (M) 2 % (0-0); HYPOCHROMASIA 1+ (0-0); METAMYELOCYTES %M 1 % (0-0); MICROCYTOSIS 2+ (0-0); MONOCYTES % (M) 9 % (0-11); MYELOCYTES % (M) 1 % (0-0); PLATELET ESTIMATE NORMAL; POIKILOCYTOSIS 1+ (0-0); POLYCHROMASIA 3+ (0-0)
--- NOTE | 2017-05-04 11:45 | PN ---
Date/Time of Note Date/Time of Note DATE: 05/04/17 TIME: 11:35 Assessment/Plan VTE Prophylaxis VTE Prophylaxis Intervention: SCD's Lines/Catheters IV Catheter Type (from Nrs): JAMIL CATHETER Urinary Cath still in place: No Assessment/Plan Chief Complaint/Hosp Course Chief Complaint/Hosp Course Assessment: Anemia rule out GI bleed EGD 05/03/17 Impression: Moderate distal esophagitis. Post distal gastrectomy Billroth II anastomosis. Moderate bile reflux gastritis. Rule out H. pylori infection. Biopsies obtained Normal afferent and efferent jejunal mucosa Colonoscopy 05/03/17 Impression: Suboptimal examination due to poor preparation No gross lesions present. Moderate-sized internal hemorrhoids. Volume overload Acute kidney injury with history of CKD, started on hemodialysis Acute decompensated diastolic congestive heart failure Diabetes CAD with history of PCI over 10 years ago Hypertension Dyslipidemia History of DVT, previously on anticoagulation Intermittent Mobitz type I, asymptomatic Plan: Continue observation If evidence of bleeding will require more thorough examination with adequate preparation If no evidence of further bleeding repeat colonoscopy within 6 months to a year is recommended Transfuse for hemoglobin less than 7.5 Continue PPI therapy Add liquid Carafate Review pathology Patient seen in collaboration with Subjective: Course reviewed with nursing staff Patient interviewed and examined All labs, imaging and other results reviewed The patient resting in bed s/p 1 unit blood transfusion. Pt currently denies any nausea, vomiting, or abd pain. Discussed results of EGD/colon with family. Will continue to monitor at this time. Pt was seen by vascular surgery. Continue to monitor h/h and need to transfuse. PHYSICAL EXAMINATION: GENERAL: Well developed, obese, well nourished, alert & oriented x 3, in no acute distress SKIN: No lesions, pale, no stigmata chronic liver disease, no evidence of bleeding diathesis LYMPHATIC: No palpable lymphadenopathy. HEAD: Normocephalic, atraumatic, no tenderness. EYES: Pupils equal reactive to light and accommodation, full extraocular movements, sclera clear, non-icteric, no discharge. EARS/NOSE AND THROAT: Ears normal, nose normal, oropharynx normal, oral membranes well hydrated without lesions. NECK: Supple, no masses, thyroid normal, CHEST: Inspection within normal limits. CARDIOVASCULAR: Heart: Regular rate at this time RESPIRATORY: Lungs clear to auscultation and percussion, no wheezing, no rubs GASTROINTESTINAL AND LIVER: Abdomen: Soft, obese, non tenderness, non-distended , no hernias, no masses, no organomegaly, no ascites, no guarding, no rebound tenderness, normoactive bowel sounds. Rectal: Deferred. GENITOURINARY: Male genitalia within normal limits. EXTREMITIES: No cyanosis, clubbing or edema. Problems: Exam/Review of Systems Vital Signs Vitals Vital Signs Date Time Temp Pulse Resp B/P Pulse Ox O2 Delivery O2 Flow Rate FiO2 05/04/17 10:03 71 21 97 Nasal Cannula 3.0 05/04/17 10:02 98.7 135/63 Results Result Diagram: 05/04/17 0622 05/04/17 0622 Results 24 hrs Laboratory Tests Test 05/03/17 12:13 05/03/17 16:48 05/03/17 21:43 05/04/17 02:13 Bedside Glucose 172 199 249 H 215 Test 05/04/17 06:22 05/04/17 09:04 White Blood Count 13.5 #H Red Blood Count 2.05 L Hemoglobin 7.9 L Hematocrit 20.2 L Mean Corpuscular Volume 98.5 Mean Corpuscular Hemoglobin 38.5 #H Mean Corpuscular Hemoglobin Concent 39.1 H Red Cell Distribution Width 23.6 #H Platelet Count 260 Mean Platelet Volume 13.4 H Segmented Neutrophils % (Manual) 72 Band Neutrophils % (Manual) 3 Lymphocytes % (Manual) 13 L Monocytes % (Manual) 9 Eosinophils % (Manual) 1 Metamyelocytes % (manual) 1 H Myelocytes % (Manual) 1 H Nucleated Red Blood Cells % 2 H Neutrophils # (Manual) 9.8 H Band Neutrophils # 0.4 Absolute Lymphocytes (Manual) 1.7 Absolute Monocytes (Manual) 1.2 H Metamyelocytes # 0.1 H Myelocytes # 0.1 H Platelet Estimate NORMAL Polychromasia 3+ Hypochromasia 1+ Poikilocytosis 1+ Anisocytosis 2+ Microcytosis 2+ Sodium Level 139 Potassium Level 3.4 L Chloride Level 99 Carbon Dioxide Level 29 Anion Gap 14 Blood Urea Nitrogen 62 H Creatinine 4.22 H Glucose Level 158 Calcium Level 8.7 Bedside Glucose 151 Medications Medications Current Medications Ondansetron HCl (Zofran Tab) 4 mg Q6H PRN PO NAUSEA AND/OR VOMITING; Start at 23:00 Nitroglycerin (Nitroglycerin (Sl Tab) 0.4 Mg) 1 tab Q5M PRN SL CHEST PAIN; Start 04/24/17 at 23:00 Docusate Sodium (Colace) 100 mg Q12H PRN PO CONSTIPATION; Start 04/24/17 at 23 :00 Bisacodyl (Dulcolax) 5 mg DAILY PRN PO CONSTIPATION; Start 04/24/17 at 23:00 Atorvastatin Calcium (Lipitor) 80 mg QHS PO Last administered on 05/03/17 21: 45; Admin Dose 80 MG; Start 04/25/17 at 21:00 Ergocalciferol (Drisdol) 50,000 unit Mo@09 PO Last administered on 04/29/17 17 :21; Admin Dose 50,000 UNIT; Start 04/24/17 at 23:00 Ferrous Sulfate (Ferrous Sulfate (Ec)) 325 mg DAILY PO Last administered on 09:16; Admin Dose 325 MG; Start 04/25/17 at 09:00 Multivit/Ca Carb/ B Cmplx/FA/Prenat (Isabel-Brenda) 1 tab DAILY PO Last administered on 05/04/17 09:17; Admin Dose 1 TAB; Start 04/25/17 at 09:00 Pantoprazole (Protonix Tab) 40 mg DAILY@06 PO Last administered on 05/04/17 06 :08; Admin Dose 40 MG; Start 04/25/17 at 06:00 Guaifenesin/ Dextromethorphan (Mucinex Dm) 1 tab BID PO Last administered on 21:44; Admin Dose 1 TAB; Start 04/25/17 at 03:15 Hydralazine HCl (Apresoline) 10 mg Q4H PRN IV ELEVATED BLOOD PRESSURE Last administered on 05/03/17 01:01; Admin Dose 10 MG; Start 04/25/17 at 03:30 Diagnostic Test (Pha) (Accu-Chek) 1 ea 02 XX Last administered on 05/04/17 02: 00; Admin Dose 1 EA; Start 04/26/17 at 02:00 Citric Acid/ Sodium Citrate (Bicitra) 30 ml TID PO Last administered on 21:46; Admin Dose 30 ML; Start 04/25/17 at 13:00 Aspirin (Aspirin) 81 mg DAILY PO Last administered on 04/30/17 10:05; Admin Dose 81 MG; Start 04/25/17 at 12:00; Status Future Hold Heparin Sodium (Porcine) (Heparin (5000 Units/0.5 ml)) 5,000 unit BID SC Last administered on 05/03/17 22:04; Admin Dose 5,000 UNIT; Start 04/26/17 at 09:00 Miscellaneous Information 1 ea NOTE XX Last administered on 04/30/17 17:45; Admin Dose 1 EA; Start 04/25/17 at 12:00 Glucose (Glutose) 15 gm Q15M PRN PO DECREASED GLUCOSE; Start 04/25/17 at 12:00 Glucose (Glutose) 22.5 gm Q15M PRN PO DECREASED GLUCOSE; Start 04/25/17 at 12: 00 Dextrose (D50w Syringe) 25 ml Q15M PRN IV DECREASED GLUCOSE; Start 04/25/17 at 12:00 Dextrose (D50w Syringe) 50 ml Q15M PRN IV DECREASED GLUCOSE; Start 04/25/17 at 12:00 Glucagon (Glucagen) 1 mg Q15M PRN IM DECREASED GLUCOSE; Start 04/25/17 at 12: 00 Glucose (Glutose) 15 gm Q15M PRN BUCCAL DECREASED GLUCOSE; Start 04/25/17 at 12:00 Furosemide (Lasix) 20 mg BID IV Last administered on 05/03/17 09:18; Admin Dose 20 MG; Start 04/26/17 at 09:00 Fish Oil (Fish Oil) 2,000 mg BID PO Last administered on 05/04/17 09:17; Admin Dose 2,000 MG; Start 04/27/17 at 21:00 EZETIMIBE (Zetia) 10 mg DAILY PO Last administered on 05/04/17 09:17; Admin Dose 10 MG; Start 04/28/17 at 09:00 Morphine Sulfate (morphine) 2 mg Q4H PRN IV Pain Last administered on 10:24; Admin Dose 2 MG; Start 04/28/17 at 09:00 Linagliptin (Tradjenta) 5 mg DAILY PO Last administered on 05/04/17 09:18; Admin Dose 5 MG; Start 04/28/17 at 12:00 Tiotropium [place] (Spiriva) 1 inh DAILY INH Last administered on 05/04/17 09: 07; Admin Dose 1 INH; Start 04/30/17 at 13:30 Salmeterol Xinafoate/ Fluticasone (Advair 250/50 Diskus) 1 inh BID INH Last administered on 05/04/17 09:07; Admin Dose 1 INH; Start 04/30/17 at 21:00 Amlodipine Besylate (Norvasc) 5 mg BID PO Last administered on 05/04/17 09:18 ; Admin Dose 5 MG; Start 05/03/17 at 21:00 Insulin Glargine (Lantus) 35 unit BID SC Last administered on 05/03/17 22:04; Admin Dose 35 UNIT; Start 05/03/17 at 21:00 Carvedilol (Coreg) 3.125 mg BID PO Last administered on 05/04/17 09:18; Admin Dose 3.125 MG; Start 05/04/17 at 09:00 HERRERA WORRELL May 04, 2017 11:45 HERRERA WORRELL May 04, 2017 11:45
[2017-05-04] MEDS: FUROSEMIDE 20 MG INJ IV SCH ×2 (12:05→21:01)
[2017-05-04] MEDS ORDERED: POTASSIUM CHLORIDE (SR) 20 MEQ TAB PO STA (12:06)
--- NOTE | 2017-05-04 12:54 | PN ---
Date/Time of Note Date/Time of Note DATE: 05/04/17 TIME: 12:54 Assessment/Plan VTE Prophylaxis VTE Prophylaxis Intervention: ambulation Lines/Catheters [facility] JAMIL CATHETER Urinary Cath still in place: No Assessment/Plan Chief Complaint/Hosp Course Assessment and plan 1. Acute respiratory failure. Secondary to fluid overload. Continue on breathing tx and oxygen. Titrate down as tolerated. Improving. Continue dialysis 2. Non-ST elevated myocardial infarction suspect type II event considering underlying worsening renal function. Continue on antiplatelet therapy. Recreation Therapy Director following. Continue recommendations. 3. Gram-positive bacteremia. Suspect contaminant. ID consult is following. Antibiotic regimen per ID consult. WBC downward trending. 4. Acute on chronic CHF with diastolic dysfunction. Continue on cardiovascular medications. Continue dialysis. Improving 5. Pulmonary hypertension. Noted with PA systolic pressure of 44 mmHg. Continue on O2. 6. CAD. Patient is status post PTCA in the past. Continue on antiplatelet therapy. 7. Metabolic acidosis secondary to worsening renal function. Continue on Bicitra per balance wheel screw hole driller. 8. Dyslipidemia. Continue on statin medication. 9. Diabetes. Continue on insulin regimen. Adjust as needed. 10. Essential hypertension continue antihypertensives and adjust needed. 11. Left popliteal vein DVT. Patient did have prior history of DVT in the lower extremities and was taking Xarelto at home. Discontinued now due to worsening renal function. Follow-up with vascular surgeon noy. 12. Acute on chronic kidney disease. HD per nephro Disposition and plan: Tentative plan for colonoscopy. Anemia improved. Continue dialysis. Will get physical therapy. Discussed plan of care with Dr. York Problems: Exam/Review of Systems Vital Signs Vitals Vital Signs Date Time Temp Pulse Resp B/P Pulse Ox O2 Delivery O2 Flow Rate FiO2 05/04/17 12:13 70 05/04/17 12:03 98.6 19 132/61 100 Nasal Cannula 2.0 Results Result Diagram: 05/04/17 0622 05/04/17 0622 Results 24 hrs Laboratory Tests Test 05/03/17 16:48 05/03/17 21:43 05/04/17 02:13 05/04/17 06:22 Bedside Glucose 199 249 H 215 White Blood Count 13.5 #H Red Blood Count 2.05 L Hemoglobin 7.9 L Hematocrit 20.2 L Mean Corpuscular Volume 98.5 Mean Corpuscular Hemoglobin 38.5 #H Mean Corpuscular Hemoglobin Concent 39.1 H Red Cell Distribution Width 23.6 #H Platelet Count 260 Mean Platelet Volume 13.4 H Segmented Neutrophils % (Manual) 72 Band Neutrophils % (Manual) 3 Lymphocytes % (Manual) 13 L Monocytes % (Manual) 9 Eosinophils % (Manual) 1 Metamyelocytes % (manual) 1 H Myelocytes % (Manual) 1 H Nucleated Red Blood Cells % 2 H Neutrophils # (Manual) 9.8 H Band Neutrophils # 0.4 Absolute Lymphocytes (Manual) 1.7 Absolute Monocytes (Manual) 1.2 H Metamyelocytes # 0.1 H Myelocytes # 0.1 H Platelet Estimate NORMAL Polychromasia 3+ Hypochromasia 1+ Poikilocytosis 1+ Anisocytosis 2+ Microcytosis 2+ Sodium Level 139 Potassium Level 3.4 L Chloride Level 99 Carbon Dioxide Level 29 Anion Gap 14 Blood Urea Nitrogen 62 H Creatinine 4.22 H Glucose Level 158 Calcium Level 8.7 Test 05/04/17 09:04 05/04/17 12:16 Bedside Glucose 151 130 Medications Medications Current Medications Ondansetron HCl (Zofran Tab) 4 mg Q6H PRN PO NAUSEA AND/OR VOMITING; Start at 23:00 Nitroglycerin (Nitroglycerin (Sl Tab) 0.4 Mg) 1 tab Q5M PRN SL CHEST PAIN; Start 04/24/17 at 23:00 Docusate Sodium (Colace) 100 mg Q12H PRN PO CONSTIPATION; Start 04/24/17 at 23 :00 Bisacodyl (Dulcolax) 5 mg DAILY PRN PO CONSTIPATION; Start 04/24/17 at 23:00 Atorvastatin Calcium (Lipitor) 80 mg QHS PO Last administered on 05/03/17 21: 45; Admin Dose 80 MG; Start 04/25/17 at 21:00 Ergocalciferol (Drisdol) 50,000 unit Mo@09 PO Last administered on 04/29/17 17 :21; Admin Dose 50,000 UNIT; Start 04/24/17 at 23:00 Ferrous Sulfate (Ferrous Sulfate (Ec)) 325 mg DAILY PO Last administered on 09:16; Admin Dose 325 MG; Start 04/25/17 at 09:00 Multivit/Ca Carb/ B Cmplx/FA/Prenat (Isabel-Brenda) 1 tab DAILY PO Last administered on 05/04/17 09:17; Admin Dose 1 TAB; Start 04/25/17 at 09:00 Pantoprazole (Protonix Tab) 40 mg DAILY@06 PO Last administered on 05/04/17 06 :08; Admin Dose 40 MG; Start 04/25/17 at 06:00 Guaifenesin/ Dextromethorphan (Mucinex Dm) 1 tab BID PO Last administered on 21:44; Admin Dose 1 TAB; Start 04/25/17 at 03:15 Hydralazine HCl (Apresoline) 10 mg Q4H PRN IV ELEVATED BLOOD PRESSURE Last administered on 05/03/17 01:01; Admin Dose 10 MG; Start 04/25/17 at 03:30 Diagnostic Test (Pha) (Accu-Chek) 1 ea 02 XX Last administered on 05/04/17 02: 00; Admin Dose 1 EA; Start 04/26/17 at 02:00 Citric Acid/ Sodium Citrate (Bicitra) 30 ml TID PO Last administered on 21:46; Admin Dose 30 ML; Start 04/25/17 at 13:00 Aspirin (Aspirin) 81 mg DAILY PO Last administered on 04/30/17 10:05; Admin Dose 81 MG; Start 04/25/17 at 12:00; Status Future Hold Heparin Sodium (Porcine) (Heparin (5000 Units/0.5 ml)) 5,000 unit BID SC Last administered on 05/03/17 22:04; Admin Dose 5,000 UNIT; Start 04/26/17 at 09:00 Miscellaneous Information 1 ea NOTE XX Last administered on 04/30/17 17:45; Admin Dose 1 EA; Start 04/25/17 at 12:00 Glucose (Glutose) 15 gm Q15M PRN PO DECREASED GLUCOSE; Start 04/25/17 at 12:00 Glucose (Glutose) 22.5 gm Q15M PRN PO DECREASED GLUCOSE; Start 04/25/17 at 12: 00 Dextrose (D50w Syringe) 25 ml Q15M PRN IV DECREASED GLUCOSE; Start 04/25/17 at 12:00 Dextrose (D50w Syringe) 50 ml Q15M PRN IV DECREASED GLUCOSE; Start 04/25/17 at 12:00 Glucagon (Glucagen) 1 mg Q15M PRN IM DECREASED GLUCOSE; Start 04/25/17 at 12: 00 Glucose (Glutose) 15 gm Q15M PRN BUCCAL DECREASED GLUCOSE; Start 04/25/17 at 12:00 Furosemide (Lasix) 20 mg BID IV Last administered on 05/04/17 12:05; Admin Dose 20 MG; Start 04/26/17 at 09:00 Fish Oil (Fish Oil) 2,000 mg BID PO Last administered on 05/04/17 09:17; Admin Dose 2,000 MG; Start 04/27/17 at 21:00 EZETIMIBE (Zetia) 10 mg DAILY PO Last administered on 05/04/17 09:17; Admin Dose 10 MG; Start 04/28/17 at 09:00 Morphine Sulfate (morphine) 2 mg Q4H PRN IV Pain Last administered on 10:24; Admin Dose 2 MG; Start 04/28/17 at 09:00 Linagliptin (Tradjenta) 5 mg DAILY PO Last administered on 05/04/17 09:18; Admin Dose 5 MG; Start 04/28/17 at 12:00 Tiotropium [place] (Spiriva) 1 inh DAILY INH Last administered on 05/04/17 09: 07; Admin Dose 1 INH; Start 04/30/17 at 13:30 Salmeterol Xinafoate/ Fluticasone (Advair 250/50 Diskus) 1 inh BID INH Last administered on 05/04/17 09:07; Admin Dose 1 INH; Start 04/30/17 at 21:00 Amlodipine Besylate (Norvasc) 5 mg BID PO Last administered on 05/04/17 09:18 ; Admin Dose 5 MG; Start 05/03/17 at 21:00 Insulin Glargine (Lantus) 35 unit BID SC Last administered on 05/03/17 22:04; Admin Dose 35 UNIT; Start 05/03/17 at 21:00 Carvedilol (Coreg) 3.125 mg BID PO Last administered on 05/04/17 09:18; Admin Dose 3.125 MG; Start 05/04/17 at 09:00 PERRY JUAREZ May 04, 2017 12:54
--- NOTE | 2017-05-04 13:06 | RADRPT ---
PROCEDURE: CT abdomen and pelvis without contrast. CLINICAL INDICATION: Abdominal Pain TECHNIQUE: CT scan of the abdomen and pelvis without contrast was performed and is reconstructed a t to point prior mm contiguous axial intervals from the dome of the diaphragm to the inferior pubic rami.. The patient was scanned without intravenous contrast. Sagittal and coronal reformatted imag es were obtained from the axial source images. The calculated radiation dose measures 1216 mGy centi meters. The CTDI measures 18 mGy. Individualized dose optimization technique was used for the performance of this exam. This included 1. Automated exposure control. 2. Adjustment of the mA and / or kV according to the patient's size. 3. Use of iterative reconstructed technique. COMPARISON: None. FINDINGS: The lung bases are clear of any infiltrate . There are innumerable less than 3 mm noncalcified nodul es at the lung bases. There is asymmetry with more nodules on the right than the left. Calcified gra nulomas seen at the left lung base.. No effusion is seen. There are dense coronary artery calcifica tions. The liver is of normal size, contour and attenuation with no mass or ductal dilatation. No gallston es are visualized. No splenic, adrenal or pancreatic abnormalities present. Kidneys are of normal size and contour. No hydronephrosis, calculus or masses seen. Ureters are o f normal course and caliber with no stone. No bladder mass or stone is present. Prostate and semina l vesicles are normal. There is no aneurysm. There are vascular calcifications. Noted is a right femoral venous catheter with the tip in the inferior vena cava. No adenopathy is present. No bowel mass or obstruction is present. The appendix is normal. No phlegmon, ascites or pneumop eritoneum is visualized. The osseous structures are intact. IMPRESSION: No evidence of urolithiasis, obstructive uropathy, diverticulitis or appendicitis. Vascular calcifications. Tiny nodules in the lung bases, right greater than left. This likely represents sequela of inflammat ory or infectious process. Consider dedicated chest CT for further evaluation. .Glenn Reyna MD, MD Date Time Electronically viewed and signed by .Glenn Reyna MD, on 05/04/2017 13:05 .[place]/
[2017-05-04] MEDS ORDERED: LIDOCAINE 1% (MPF) 30 ML INJ ONE (14:07)
[2017-05-04] MEDS ORDERED: HEPARIN 1000 UNITS/ML 10 ML INJ ONE ×2 (14:07→15:18)
--- NOTE | 2017-05-04 14:40 | PN ---
Date/Time of Note Date/Time of Note DATE: 05/04/17 TIME: 14:38 Assessment/Plan VTE Prophylaxis VTE Prophylaxis Intervention: heparin Lines/Catheters IV [facility]from [facility]): JAMIL CATHETER Urinary Cath still in place: No Assessment/Plan Chief Complaint/Hosp Course Assessment and plan 1. Acute respiratory failure. Secondary to fluid overload. continue breathing t. Improving. Continue dialysis 2. Non-ST elevated myocardial infarction suspect type II event considering underlying worsening renal function. Continue on antiplatelet therapy. Horseshoer following. Continue recommendations. 3. Gram-positive bacteremia. Suspect contaminant. ID consult is following. Antibiotic regimen per ID consult. improving 4. Acute on chronic CHF with diastolic dysfunction. Continue on cardiovascular medications. Continue dialysis. Improving 5. Pulmonary hypertension. Noted with PA systolic pressure of 44 mmHg. Continue on O2. 6. CAD. Patient is status post PTCA in the past. Continue on antiplatelet therapy. 7. Metabolic acidosis secondary to worsening renal function. Continue on Bicitra per ammonia operator. 8. Dyslipidemia. Continue on statin medication. 9. Diabetes. Continue on insulin regimen. Adjust as needed. 10. Essential hypertension continue antihypertensives and adjust needed. 11. Left popliteal vein DVT. Patient did have prior history of DVT in the lower extremities and was taking Xarelto at home. Discontinued now due to worsening renal function. Follow-up with vascular surgeon noy. 12. Acute on chronic kidney disease. continue dialysis. plan for AV fistula today Disposition and plan: continue HD. plan for AV fistula today Discussed plan of care with Dr. York Problems: Subjective 24 Hr Interval Summary Free Text/Dictation patient for AV fistula Exam/Review of Systems Vital Signs Vitals Vital Signs Date Time Temp Pulse Resp B/P Pulse Ox O2 Delivery O2 Flow Rate FiO2 05/04/17 13:43 74 20 97 Nasal Cannula 3.0 05/04/17 12:03 98.6 132/61 Intake and Output 05/03/17 05/03/17 05/04/17 14:59 22:59 06:59 Intake Total 500 ml Output Total 3500 ml Balance -3000 ml Exam patient for AV fistula Results Result Diagram: 05/04/1762105/04/17621 Results 24 hrs Laboratory Tests Test 05/03/17 16:48 05/03/17 21:43 05/04/17 02:13 05/04/17 06:22 Bedside Glucose 199 249 H 215 White Blood Count 13.5 #H Red Blood Count 2.05 L Hemoglobin 7.9 L Hematocrit 20.2 L Mean Corpuscular Volume 98.5 Mean Corpuscular Hemoglobin 38.5 #H Mean Corpuscular Hemoglobin Concent 39.1 H Red Cell Distribution Width 23.6 #H Platelet Count 260 Mean Platelet Volume 13.4 H Segmented Neutrophils % (Manual) 72 Band Neutrophils % (Manual) 3 Lymphocytes % (Manual) 13 L Monocytes % (Manual) 9 Eosinophils % (Manual) 1 Metamyelocytes % (manual) 1 H Myelocytes % (Manual) 1 H Nucleated Red Blood Cells % 2 H Neutrophils # (Manual) 9.8 H Band Neutrophils # 0.4 Absolute Lymphocytes (Manual) 1.7 Absolute Monocytes (Manual) 1.2 H Metamyelocytes # 0.1 H Myelocytes # 0.1 H Platelet Estimate NORMAL Polychromasia 3+ Hypochromasia 1+ Poikilocytosis 1+ Anisocytosis 2+ Microcytosis 2+ Sodium Level 139 Potassium Level 3.4 L Chloride Level 99 Carbon Dioxide Level 29 Anion Gap 14 Blood Urea Nitrogen 62 H Creatinine 4.22 H Glucose Level 158 Calcium Level 8.7 Test 05/04/17 09:04 05/04/17 12:16 Bedside Glucose 151 130 Medications Medications Current Medications Ondansetron HCl (Zofran Tab) 4 mg Q6H PRN PO NAUSEA AND/OR VOMITING; Start at 23:00 Nitroglycerin (Nitroglycerin (Sl Tab) 0.4 Mg) 1 tab Q5M PRN SL CHEST PAIN; Start 04/24/17 at 23:00 Docusate Sodium (Colace) 100 mg Q12H PRN PO CONSTIPATION; Start 04/24/17 at 23 :00 Bisacodyl (Dulcolax) 5 mg DAILY PRN PO CONSTIPATION; Start 04/24/17 at 23:00 Atorvastatin Calcium (Lipitor) 80 mg QHS PO Last administered on 05/03/17 21: 45; Admin Dose 80 MG; Start 04/25/17 at 21:00 Ergocalciferol (Drisdol) 50,000 unit Mo@09 PO Last administered on 04/29/17 17 :21; Admin Dose 50,000 UNIT; Start 04/24/17 at 23:00 Ferrous Sulfate (Ferrous Sulfate (Ec)) 325 mg DAILY PO Last administered on 09:16; Admin Dose 325 MG; Start 04/25/17 at 09:00 Multivit/Ca Carb/ B Cmplx/FA/Prenat (Isabel-Brenda) 1 tab DAILY PO Last administered on 05/04/17 09:17; Admin Dose 1 TAB; Start 04/25/17 at 09:00 Pantoprazole (Protonix Tab) 40 mg DAILY@06 PO Last administered on 05/04/17 06 :08; Admin Dose 40 MG; Start 04/25/17 at 06:00 Guaifenesin/ Dextromethorphan (Mucinex Dm) 1 tab BID PO Last administered on 21:44; Admin Dose 1 TAB; Start 04/25/17 at 03:15 Hydralazine HCl (Apresoline) 10 mg Q4H PRN IV ELEVATED BLOOD PRESSURE Last administered on 05/03/17 01:01; Admin Dose 10 MG; Start 04/25/17 at 03:30 Diagnostic Test (Pha) (Accu-Chek) 1 ea 02 XX Last administered on 05/04/17 02: 00; Admin Dose 1 EA; Start 04/26/17 at 02:00 Citric Acid/ Sodium Citrate (Bicitra) 30 ml TID PO Last administered on 21:46; Admin Dose 30 ML; Start 04/25/17 at 13:00 Aspirin (Aspirin) 81 mg DAILY PO Last administered on 04/30/17 10:05; Admin Dose 81 MG; Start 04/25/17 at 12:00; Status Future Hold Heparin Sodium (Porcine) (Heparin (5000 Units/0.5 ml)) 5,000 unit BID SC Last administered on 05/03/17 22:04; Admin Dose 5,000 UNIT; Start 04/26/17 at 09:00 Miscellaneous Information 1 ea NOTE XX Last administered on 04/30/17 17:45; Admin Dose 1 EA; Start 04/25/17 at 12:00 Glucose (Glutose) 15 gm Q15M PRN PO DECREASED GLUCOSE; Start 04/25/17 at 12:00 Glucose (Glutose) 22.5 gm Q15M PRN PO DECREASED GLUCOSE; Start 04/25/17 at 12: 00 Dextrose (D50w Syringe) 25 ml Q15M PRN IV DECREASED GLUCOSE; Start 04/25/17 at 12:00 Dextrose (D50w Syringe) 50 ml Q15M PRN IV DECREASED GLUCOSE; Start 04/25/17 at 12:00 Glucagon (Glucagen) 1 mg Q15M PRN IM DECREASED GLUCOSE; Start 04/25/17 at 12: 00 Glucose (Glutose) 15 gm Q15M PRN BUCCAL DECREASED GLUCOSE; Start 04/25/17 at 12:00 Furosemide (Lasix) 20 mg BID IV Last administered on 05/04/17 12:05; Admin Dose 20 MG; Start 04/26/17 at 09:00 Fish Oil (Fish Oil) 2,000 mg BID PO Last administered on 05/04/17 09:17; Admin Dose 2,000 MG; Start 04/27/17 at 21:00 EZETIMIBE (Zetia) 10 mg DAILY PO Last administered on 05/04/17 09:17; Admin Dose 10 MG; Start 04/28/17 at 09:00 Morphine Sulfate (morphine) 2 mg Q4H PRN IV Pain Last administered on 10:24; Admin Dose 2 MG; Start 04/28/17 at 09:00 Linagliptin (Tradjenta) 5 mg DAILY PO Last administered on 05/04/17 09:18; Admin Dose 5 MG; Start 04/28/17 at 12:00 Tiotropium [place] (Spiriva) 1 inh DAILY INH Last administered on 05/04/17 09: 07; Admin Dose 1 INH; Start 04/30/17 at 13:30 Salmeterol Xinafoate/ Fluticasone (Advair 250/50 Diskus) 1 inh BID INH Last administered on 05/04/17 09:07; Admin Dose 1 INH; Start 04/30/17 at 21:00 Amlodipine Besylate (Norvasc) 5 mg BID PO Last administered on 05/04/17 09:18 ; Admin Dose 5 MG; Start 05/03/17 at 21:00 Insulin Glargine (Lantus) 35 unit BID SC Last administered on 05/03/17 22:04; Admin Dose 35 UNIT; Start 05/03/17 at 21:00 Carvedilol (Coreg) 3.125 mg BID PO Last administered on 12/9/17at 09:18; Admin Dose 3.125 MG; Start 05/04/17 at 09:00 PERRY JUAREZ May 04, 2017 14:40
--- NOTE | 2017-05-04 14:45 | CONS ---
Date/Time of Note Date/Time of Note DATE: 05/04/17 TIME: 14:36 Assessment/Plan Assessment/Plan Additional Assessment/Plan - Hypokalemia-resolved - Leukocytosis- monitor CBC - Oliguric TROY on CKD III/IV Due to possible Cardiorenal syndrome with worsening renal failue due to diabetic nephropathy- failed outpatient PO lasix therapy - progressed to ESRD -started on HD on04/29/2017 for recurrent CHF and pulmonary edema - H/o CKD due to diabetic nehropathy as per pt was stage IV/V with eGFR 15 as outpatient - Acute hyperkalemia due to TROY on CKD - resolved after pt gets started on HD - Metabolic acidosis due to worsening renal failure - H/ CAD S/p previous coronary angiogram as per patient - Hypertension - Type II DM - Hyperlipidemia - Acute NSETMI due to CHF - severe anemia despite getting PRBC, concerned about GI bleeding, Plan : hepatitis C antibody positive, Hepatitis A antibody positive EGD showed distal esophagitis, S/p HD today 3 L removed , will plan for HD tomorrow after permacath placement Renal US showed small size kidneys, no hydronephrosis, c/w CKD on Epogen for anemia will follow up Dw Dr Joby Tobar Consultation Date/Type/Reason Admit Date/Time Apr 24, 2017 at 19:05 Initial Consult Date 05/01/17 Type of Consultation: cv Referring Provider: NANY PRIEST NP 24 HR Interval Summary Free Text/Dictation -Patient off floor- went for Paermacath Placement. -Got 1 PRBC yesterday and 1 PRBC today- H/H pending after 2nd unit - Hypokalemia- K repleted -No new issues reported overnight. Exam/Review of Systems Vital Signs Vitals Vital Signs Date Time Temp Pulse Resp B/P Pulse Ox O2 Delivery O2 Flow Rate FiO2 05/04/17 13:43 74 20 97 Nasal Cannula 3.0 05/04/17 12:03 98.6 132/61 Intake and Output 05/03/17 05/03/17 05/04/17 14:59 22:59 06:59 Intake Total 500 ml Output Total 3500 ml Balance -3000 ml Results Result Diagram: 05/04/1722 05/04/17 0622 Results 24 hrs Laboratory Tests Test 05/03/17 16:48 05/03/17 21:43 05/04/17 02:13 05/04/17 06:22 Bedside Glucose 199 249 H 215 White Blood Count 13.5 #H Red Blood Count 2.05 L Hemoglobin 7.9 L Hematocrit 20.2 L Mean Corpuscular Volume 98.5 Mean Corpuscular Hemoglobin 38.5 #H Mean Corpuscular Hemoglobin Concent 39.1 H Red Cell Distribution Width 23.6 #H Platelet Count 260 Mean Platelet Volume 13.4 H Segmented Neutrophils % (Manual) 72 Band Neutrophils % (Manual) 3 Lymphocytes % (Manual) 13 L Monocytes % (Manual) 9 Eosinophils % (Manual) 1 Metamyelocytes % (manual) 1 H Myelocytes % (Manual) 1 H Nucleated Red Blood Cells % 2 H Neutrophils # (Manual) 9.8 H Band Neutrophils # 0.4 Absolute Lymphocytes (Manual) 1.7 Absolute Monocytes (Manual) 1.2 H Metamyelocytes # 0.1 H Myelocytes # 0.1 H Platelet Estimate NORMAL Polychromasia 3+ Hypochromasia 1+ Poikilocytosis 1+ Anisocytosis 2+ Microcytosis 2+ Sodium Level 139 Potassium Level 3.4 L Chloride Level 99 Carbon Dioxide Level 29 Anion Gap 14 Blood Urea Nitrogen 62 H Creatinine 4.22 H Glucose Level 158 Calcium Level 8.7 Test 05/04/17 09:04 05/04/17 12:16 Bedside Glucose 151 130 Medications Medications Current Medications Ondansetron HCl (Zofran Tab) 4 mg Q6H PRN PO NAUSEA AND/OR VOMITING; Start at 23:00 Nitroglycerin (Nitroglycerin (Sl Tab) 0.4 Mg) 1 tab Q5M PRN SL CHEST PAIN; Start 04/24/17 at 23:00 Docusate Sodium (Colace) 100 mg Q12H PRN PO CONSTIPATION; Start 04/24/17 at 23 :00 Bisacodyl (Dulcolax) 5 mg DAILY PRN PO CONSTIPATION; Start 04/24/17 at 23:00 Atorvastatin Calcium (Lipitor) 80 mg QHS PO Last administered on 05/03/17 21: 45; Admin Dose 80 MG; Start 04/25/17 at 21:00 Ergocalciferol (Drisdol) 50,000 unit Mo@09 PO Last administered on 04/29/17 17 :21; Admin Dose 50,000 UNIT; Start 04/24/17 at 23:00 Ferrous Sulfate (Ferrous Sulfate (Ec)) 325 mg DAILY PO Last administered on 09:16; Admin Dose 325 MG; Start 04/25/17 at 09:00 Multivit/Ca Carb/ B Cmplx/FA/Prenat (Isabel-Brenda) 1 tab DAILY PO Last administered on 05/04/17 09:17; Admin Dose 1 TAB; Start 04/25/17 at 09:00 Pantoprazole (Protonix Tab) 40 mg DAILY@06 PO Last administered on 05/04/17 06 :08; Admin Dose 40 MG; Start 04/25/17 at 06:00 Guaifenesin/ Dextromethorphan (Mucinex Dm) 1 tab BID PO Last administered on 21:44; Admin Dose 1 TAB; Start 04/25/17 at 03:15 Hydralazine HCl (Apresoline) 10 mg Q4H PRN IV ELEVATED BLOOD PRESSURE Last administered on 05/03/17 01:01; Admin Dose 10 MG; Start 04/25/17 at 03:30 Diagnostic Test (Pha) (Accu-Chek) 1 ea 02 XX Last administered on 05/04/17 02: 00; Admin Dose 1 EA; Start 04/26/17 at 02:00 Citric Acid/ Sodium Citrate (Bicitra) 30 ml TID PO Last administered on 21:46; Admin Dose 30 ML; Start 04/25/17 at 13:00 Aspirin (Aspirin) 81 mg DAILY PO Last administered on 04/30/17 10:05; Admin Dose 81 MG; Start 04/25/17 at 12:00; Status Future Hold Heparin Sodium (Porcine) (Heparin (5000 Units/0.5 ml)) 5,000 unit BID SC Last administered on 05/03/17 22:04; Admin Dose 5,000 UNIT; Start 04/26/17 at 09:00 Miscellaneous Information 1 ea NOTE XX Last administered on 04/30/17 17:45; Admin Dose 1 EA; Start 04/25/17 at 12:00 Glucose (Glutose) 15 gm Q15M PRN PO DECREASED GLUCOSE; Start 04/25/17 at 12:00 Glucose (Glutose) 22.5 gm Q15M PRN PO DECREASED GLUCOSE; Start 04/25/17 at 12: 00 Dextrose (D50w Syringe) 25 ml Q15M PRN IV DECREASED GLUCOSE; Start 04/25/17 at 12:00 Dextrose (D50w Syringe) 50 ml Q15M PRN IV DECREASED GLUCOSE; Start 04/25/17 at 12:00 Glucagon (Glucagen) 1 mg Q15M PRN IM DECREASED GLUCOSE; Start 04/25/17 at 12: 00 Glucose (Glutose) 15 gm Q15M PRN BUCCAL DECREASED GLUCOSE; Start 04/25/17 at 12:00 Furosemide (Lasix) 20 mg BID IV Last administered on 05/04/17 12:05; Admin Dose 20 MG; Start 04/26/17 at 09:00 Fish Oil (Fish Oil) 2,000 mg BID PO Last administered on 05/04/17 09:17; Admin Dose 2,000 MG; Start 04/27/17 at 21:00 EZETIMIBE (Zetia) 10 mg DAILY PO Last administered on 05/04/17 09:17; Admin Dose 10 MG; Start 04/28/17 at 09:00 Morphine Sulfate (morphine) 2 mg Q4H PRN IV Pain Last administered on 10:24; Admin Dose 2 MG; Start 04/28/17 at 09:00 Linagliptin (Tradjenta) 5 mg DAILY PO Last administered on 05/04/17 09:18; Admin Dose 5 MG; Start 04/28/17 at 12:00 Tiotropium [place] (Spiriva) 1 inh DAILY INH Last administered on 05/04/17 09: 07; Admin Dose 1 INH; Start 04/30/17 at 13:30 Salmeterol Xinafoate/ Fluticasone (Advair 250/50 Diskus) 1 inh BID INH Last administered on 05/04/17 09:07; Admin Dose 1 INH; Start 04/30/17 at 21:00 Amlodipine Besylate (Norvasc) 5 mg BID PO Last administered on 05/04/17 09:18 ; Admin Dose 5 MG; Start 05/03/17 at 21:00 Insulin Glargine (Lantus) 35 unit BID SC Last administered on 05/03/17 22:04; Admin Dose 35 UNIT; Start 05/03/17 at 21:00 Carvedilol (Coreg) 3.125 mg BID PO Last administered on 05/04/17t 09:18; Admin Dose 3.125 MG; Start 05/04/17 at 09:00 CATARINA GONCALVES May 04, 2017 14:45
--- NOTE | 2017-05-04 14:57 | HPN ---
Date/Time of Note Date/Time of Note DATE: 05/04/17 TIME: 14:56 Interval H&P Admission Note Pt. seen H&P reviewed: No system changes patient able to lay flat now VANIA PEREYRA MD May 04, 2017 14:57
--- NOTE | 2017-05-04 14:59 | OPR ---
Date/Time of Note Date/Time of Note DATE: 05/04/17 TIME: 14:57 Operative Report Procedure Date: May 04, 2017 Preoperative Diagnosis ESRD Postoperative Diagnosis SAME Operation/Procedure Performed RIGHT IJ PERM CATHETER PLACEMENT Surgeon see signature line Fisher Trawl Net NONE Anesthesia Type: moderate sedation Estimated Blood Loss: minimal Transfusion none Specimen NONE Grafts/Implants none Complications none Pt Condition Post Procedure: stable Disposition: PACU Procedure Description DATE OF OPERATION: 05/04/2017 SURGEON: Rod Pereyra MD PREOPERATIVE DIAGNOSIS: ESRD POSTOPERATIVE DIAGNOSIS: ESRD ANESTHESIA: Local with Sedation BLOOD LOSS: minimal COMPLICATIONS: None. HEPARIN: None CONTRAST: None ACCESS: RIJ CLOSURE: Manual compression & 3-0 Nylon suture INDICATIONS: This is a 66-year-old male with renal failure and multiple medical conditions. Currently has a temporary right groin catheter and now requires a permanent catheter for dialysis. Patient and family have been informed of the alternatives, risks, and benefits. Risks including but not limited to bleeding, thrombosis, embolization, myocardial infarction, , device malfunction, infection, pneumothorax, and nephrotoxicity and patient has agreed to proceed. This is the first in this clinical setting PROCEDURE: 1. Ultrasound guided access of right internal jugular vein 2. Placement of permanent hemodialysis catheter 3. fluoroscopy DESCRIPTION: The patient was placed supine on angio bed. The bed was placed in Trendelenburg position and bilateral neck and chest were prepped and draped with sterile technique. A time-out was completed verifying correct patient, procedure, site, positioning, and catheter prior to beginning this procedure. The dialysis catheter was flushed with heparin to ensure function of each port. The skin and subcutaneous tissue were anesthetized with 1% lidocaine. Landmarks were identified and an infraclavicular stab incision was made on the anterior chest wall . Using ultrasound guidance micropuncture needle was then used to access the central vein and wire placement under fluoroscopy was performed and recorded. Using the catheter tunneler the permanent catheter was tunnelled. Amplatz wire was placed in the IVC and the track was dilated. Peal away sheath was placed over wire. At this point wire and inner dilator of the peel away sheath were removed. The permanent catheter was placed through the peal away sheath successfully. A spot fluoro was performed and catheter position was satisfactory. Each port was aspirated to ensure adequate blood flow and then flushed with heparinized saline. Each port had heparin solution placed. The Catheter was secured using 3-0 nylon suture and a sterile dressings applied. The patient tolerated the procedure well and in fair condition. ROD PEREYRA MD May 04, 2017 14:59
[2017-05-04] MEDS ORDERED: MIDAZOLAM 1 MG/ML 2 ML INJ IV PRN ×2 (15:00→16:00)
[2017-05-04] MEDS ORDERED: FENTAnyl 50 MCG/ML VIAL IV PRN ×6 (15:00→16:00)
[2017-05-04] MEDS ORDERED: METOCLOPRAMIDE 10 MG INJ IV PRN ×2 (15:00→16:00)
[2017-05-04] MEDS ORDERED: hydrALAzine 20 MG INJ IV PRN ×2 (15:00→16:00)
[2017-05-04] MEDS ORDERED: MEPERIDINE 25 MG INJ IV PRN ×2 (15:00→16:00)
[2017-05-04] MEDS ORDERED: DIPHENHYDRAMINE 50 MG INJ IV PRN ×2 (15:00→16:00)
[2017-05-04] MEDS ORDERED: EPHEDrine SULFATE 50 MG/5 ML SYG IV PRN ×2 (15:00→16:00)
[2017-05-04] MEDS ORDERED: ONDANSETRON 4 MG INJ IV PRN ×2 (15:00→16:00)
[2017-05-04] MEDS ORDERED: LABETALOL HCL 20MG INJ IV PRN ×2 (15:00→16:00)
[2017-05-04] MEDS ORDERED: MIDAZOLAM 1 MG/ML 2 ML INJ ONE (15:10)
[2017-05-04] MEDS ORDERED: CEFAZOLIN 1 GM INJ ONE (15:38)
[2017-05-04] MEDS ORDERED: OXYCODONE/ACETAMINOPHEN (5/325) TAB PO PRN ×2 (16:00)
--- NOTE | 2017-05-04 17:03 | CONS ---
Date/Time of Note Date/Time of Note DATE: 05/04/17 TIME: 17:02 Consult Date/Type/Reason Admit Date/Time Apr 24, 2017 at 19:05 Initial Consult Date 05/01/17 Type of Consultation: Pulm Ordering Provider: NANY PRIEST WINDOW SHADE ESTIMATOR Subjective s/p permacath placement Objective Vital Signs Date Time Temp Pulse Resp B/P Pulse Ox O2 Delivery O2 Flow Rate FiO2 05/04/17 15:50 98.2 62 17 190/59 99 Nasal Cannula 2.0 Exam HEENT: Neck supple; no JVD; no LAD CVS: RRR, S1 and S2 CHEST: Clear ABD: Soft, NT, + BS EXT: No c/c/e Results/Medications Result Diagram: 05/04/1762105/04/17621 Results 24 hrs Laboratory Tests Test 05/03/17 21:43 05/04/17 02:13 05/04/17 06:22 05/04/17 09:04 Bedside Glucose 249 H 215 151 White Blood Count 13.5 #H Red Blood Count 2.05 L Hemoglobin 7.9 L Hematocrit 20.2 L Mean Corpuscular Volume 98.5 Mean Corpuscular Hemoglobin 38.5 #H Mean Corpuscular Hemoglobin Concent 39.1 H Red Cell Distribution Width 23.6 #H Platelet Count 260 Mean Platelet Volume 13.4 H Segmented Neutrophils % (Manual) 72 Band Neutrophils % (Manual) 3 Lymphocytes % (Manual) 13 L Monocytes % (Manual) 9 Eosinophils % (Manual) 1 Metamyelocytes % (manual) 1 H Myelocytes % (Manual) 1 H Nucleated Red Blood Cells % 2 H Neutrophils # (Manual) 9.8 H Band Neutrophils # 0.4 Absolute Lymphocytes (Manual) 1.7 Absolute Monocytes (Manual) 1.2 H Metamyelocytes # 0.1 H Myelocytes # 0.1 H Platelet Estimate NORMAL Polychromasia 3+ Hypochromasia 1+ Poikilocytosis 1+ Anisocytosis 2+ Microcytosis 2+ Sodium Level 139 Potassium Level 3.4 L Chloride Level 99 Carbon Dioxide Level 29 Anion Gap 14 Blood Urea Nitrogen 62 H Creatinine 4.22 H Glucose Level 158 Calcium Level 8.7 Test 05/04/17 12:16 Bedside Glucose 130 Medications Current Medications Ondansetron HCl (Zofran Tab) 4 mg Q6H PRN PO NAUSEA AND/OR VOMITING; Start at 23:00 Nitroglycerin (Nitroglycerin (Sl Tab) 0.4 Mg) 1 tab Q5M PRN SL CHEST PAIN; Start 04/24/17 at 23:00 Docusate Sodium (Colace) 100 mg Q12H PRN PO CONSTIPATION; Start 04/24/17 at 23 :00 Bisacodyl (Dulcolax) 5 mg DAILY PRN PO CONSTIPATION; Start 04/24/17 at 23:00 Atorvastatin Calcium (Lipitor) 80 mg QHS PO Last administered on 05/03/17 21: 45; Admin Dose 80 MG; Start 04/25/17 at 21:00 Ergocalciferol (Drisdol) 50,000 unit Mo@09 PO Last administered on 04/29/17 17 :21; Admin Dose 50,000 UNIT; Start 04/24/17 at 23:00 Ferrous Sulfate (Ferrous Sulfate (Ec)) 325 mg DAILY PO Last administered on 09:16; Admin Dose 325 MG; Start 04/25/17 at 09:00 Multivit/Ca Carb/ B Cmplx/FA/Prenat (Isabel-Brenda) 1 tab DAILY PO Last administered on 05/04/17 09:17; Admin Dose 1 TAB; Start 04/25/17 at 09:00 Pantoprazole (Protonix Tab) 40 mg DAILY@06 PO Last administered on 05/04/17 06 :08; Admin Dose 40 MG; Start 04/25/17 at 06:00 Guaifenesin/ Dextromethorphan (Mucinex Dm) 1 tab BID PO Last administered on 21:44; Admin Dose 1 TAB; Start 04/25/17 at 03:15 Hydralazine HCl (Apresoline) 10 mg Q4H PRN IV ELEVATED BLOOD PRESSURE Last administered on 05/03/17 01:01; Admin Dose 10 MG; Start 04/25/17 at 03:30 Diagnostic Test (Pha) (Accu-Chek) 1 ea 02 XX Last administered on 05/04/17 02: 00; Admin Dose 1 EA; Start 04/26/17 at 02:00 Citric Acid/ Sodium Citrate (Bicitra) 30 ml TID PO Last administered on 21:46; Admin Dose 30 ML; Start 04/25/17 at 13:00 Aspirin (Aspirin) 81 mg DAILY PO Last administered on 04/30/17 10:05; Admin Dose 81 MG; Start 04/25/17 at 12:00; Status Future Hold Heparin Sodium (Porcine) (Heparin (5000 Units/0.5 ml)) 5,000 unit BID SC Last administered on 05/03/17 22:04; Admin Dose 5,000 UNIT; Start 04/26/17 at 09:00 Miscellaneous Information 1 ea NOTE XX Last administered on 04/30/17 17:45; Admin Dose 1 EA; Start 04/25/17 at 12:00 Glucose (Glutose) 15 gm Q15M PRN PO DECREASED GLUCOSE; Start 04/25/17 at 12:00 Glucose (Glutose) 22.5 gm Q15M PRN PO DECREASED GLUCOSE; Start 04/25/17 at 12: 00 Dextrose (D50w Syringe) 25 ml Q15M PRN IV DECREASED GLUCOSE; Start 04/25/17 at 12:00 Dextrose (D50w Syringe) 50 ml Q15M PRN IV DECREASED GLUCOSE; Start 04/25/17 at 12:00 Glucagon (Glucagen) 1 mg Q15M PRN IM DECREASED GLUCOSE; Start 04/25/17 at 12: 00 Glucose (Glutose) 15 gm Q15M PRN BUCCAL DECREASED GLUCOSE; Start 04/25/17 at 12:00 Furosemide (Lasix) 20 mg BID IV Last administered on 05/04/17 12:05; Admin Dose 20 MG; Start 04/26/17 at 09:00 Fish Oil (Fish Oil) 2,000 mg BID PO Last administered on 05/04/17 09:17; Admin Dose 2,000 MG; Start 04/27/17 at 21:00 EZETIMIBE (Zetia) 10 mg DAILY PO Last administered on 05/04/17 09:17; Admin Dose 10 MG; Start 04/28/17 at 09:00 Morphine Sulfate (morphine) 2 mg Q4H PRN IV Pain Last administered on 10:24; Admin Dose 2 MG; Start 04/28/17 at 09:00 Linagliptin (Tradjenta) 5 mg DAILY PO Last administered on 05/04/17 09:18; Admin Dose 5 MG; Start 04/28/17 at 12:00 Tiotropium [place] (Spiriva) 1 inh DAILY INH Last administered on 05/04/17 09: 07; Admin Dose 1 INH; Start 04/30/17 at 13:30 Salmeterol Xinafoate/ Fluticasone (Advair 250/50 Diskus) 1 inh BID INH Last administered on 05/04/17 09:07; Admin Dose 1 INH; Start 04/30/17 at 21:00 Amlodipine Besylate (Norvasc) 5 mg BID PO Last administered on 05/04/17 09:18 ; Admin Dose 5 MG; Start 05/03/17 at 21:00 Insulin Glargine (Lantus) 35 unit BID SC Last administered on 05/03/17 22:04; Admin Dose 35 UNIT; Start 05/03/17 at 21:00 Carvedilol (Coreg) 3.125 mg BID PO Last administered on 05/04/17 09:18; Admin Dose 3.125 MG; Start 05/04/17 at 09:00 Assessment/Plan Additional Assessment/Plan IMP: 1. Patient admitted with mild pulmonary edema with COPD exacerbation with interval improvement. 2. End-stage renal disease, on hemodialysis. 3. Anemia. Questionable GI bleed with drop in hemoglobin noted. 4. Diabetes. With hyperglycemia secondary to systemic steroids. 5. History of DVT. 6. History of hypertension. RECS: 1. HD/UF 2. Follow K+ 3. Am labs JAYY HE MD May 04, 2017 17:03
--- NOTE | 2017-05-04 18:22 | CONS ---
Date/Time of Note Date/Time of Note DATE: 05/04/17 TIME: 18:20 Assessment/Plan Assessment/Plan Chief Complaint/Hosp Course ID PROGRESS NOTE TOTAL ABX DAY CURRENT ABX=>OFF ABX S/P CEFEPIME 24H INTERVAL SUMMARY * POD #0 -> s/p 05/04/17 RIGHT IJ PERM CATHETER PLACEMENT * POD #1 -> S/P 17 EGD: Moderate distal esophagitis.Post distal gastrectomy Billroth II anastomosis. Moderate bile reflux gastritis. Rule out H. pylori infection. Biopsies * VSS, NAD, resting EXAM GENERAL: Overweight M, VSS, NAD HEENT: Unremarkable NECK: Supple, full ROM CHEST: Rise symmetrical, without dyspnea on observation ABDOMEN: Soft, NT EXTREMITIES: Warm, SKIN: No diaphoresis, no rash ID ASSESSMENT: 66 yo M admit with: * POD #0 -> s/p 05/04/17 RIGHT IJ PERM CATHETER PLACEMENT * POD #1 -> S/P 05/03/17 EGD: Moderate distal esophagitis.Post distal gastrectomy Billroth II anastomosis. Moderate bile reflux gastritis. Rule out H. pylori infection. Biopsies 1. Systemic inflammatory response syndrome with ongoing leukocytosis, on steroids. 2. Acute chronic obstructive pulmonary disease exacerbation==> s/p Cefepime. 3. Pulmonary edema. 4. End-stage renal disease, now on hemodialysis. 5. Diabetes. 6. History of coronary artery bypass graft. 7. Hypertension. 8. Acute on chronic anemia INVASIVES: PIV ABX ALLERGY: KNDA CURRENT ABX=>OFF ABX S/P CEFEPIME ID PLAN 1. Observe off ABX, will f/u tomorrow . Problems: Consultation Date/Type/Reason Admit Date/Time Apr 24, 2017 at 19:05 Initial Consult Date 05/01/17 Type of Consultation: ID Referring Provider: NANY PRIEST NP Exam/Review of Systems Vital Signs Vitals Vital Signs Date Time Temp Pulse Resp B/P Pulse Ox O2 Delivery O2 Flow Rate FiO2 05/04/17 17:05 68 17 152/68 99 Nasal Cannula 05/04/17 17:00 98.9 05/04/17 15:50 2.0 Results Result Diagram: 05/04/17 0622 05/04/17 0622 Results 24 hrs Laboratory Tests Test 05/03/17 21:43 05/04/17 02:13 05/04/17 06:22 05/04/17 09:04 Bedside Glucose 249 H 215 151 White Blood Count 13.5 #H Red Blood Count 2.05 L Hemoglobin 7.9 L Hematocrit 20.2 L Mean Corpuscular Volume 98.5 Mean Corpuscular Hemoglobin 38.5 #H Mean Corpuscular Hemoglobin Concent 39.1 H Red Cell Distribution Width 23.6 #H Platelet Count 260 Mean Platelet Volume 13.4 H Segmented Neutrophils % (Manual) 72 Band Neutrophils % (Manual) 3 Lymphocytes % (Manual) 13 L Monocytes % (Manual) 9 Eosinophils % (Manual) 1 Metamyelocytes % (manual) 1 H Myelocytes % (Manual) 1 H Nucleated Red Blood Cells % 2 H Neutrophils # (Manual) 9.8 H Band Neutrophils # 0.4 Absolute Lymphocytes (Manual) 1.7 Absolute Monocytes (Manual) 1.2 H Metamyelocytes # 0.1 H Myelocytes # 0.1 H Platelet Estimate NORMAL Polychromasia 3+ Hypochromasia 1+ Poikilocytosis 1+ Anisocytosis 2+ Microcytosis 2+ Sodium Level 139 Potassium Level 3.4 L Chloride Level 99 Carbon Dioxide Level 29 Anion Gap 14 Blood Urea Nitrogen 62 H Creatinine 4.22 H Glucose Level 158 Calcium Level 8.7 Test 05/04/17 12:16 05/04/17 17:07 Bedside Glucose 130 141 Medications Medications Current Medications Ondansetron HCl (Zofran Tab) 4 mg Q6H PRN PO NAUSEA AND/OR VOMITING; Start at 23:00 Nitroglycerin (Nitroglycerin (Sl Tab) 0.4 Mg) 1 tab Q5M PRN SL CHEST PAIN; Start 04/24/17 at 23:00 Docusate Sodium (Colace) 100 mg Q12H PRN PO CONSTIPATION; Start 04/24/17 at 23 :00 Bisacodyl (Dulcolax) 5 mg DAILY PRN PO CONSTIPATION; Start 04/24/17 at 23:00 Atorvastatin Calcium (Lipitor) 80 mg QHS PO Last administered on 05/03/17 21: 45; Admin Dose 80 MG; Start 04/25/17 at 21:00 Ergocalciferol (Drisdol) 50,000 unit Mo@09 PO Last administered on 04/29/17 17 :21; Admin Dose 50,000 UNIT; Start 04/24/17 at 23:00 Ferrous Sulfate (Ferrous Sulfate (Ec)) 325 mg DAILY PO Last administered on 09:16; Admin Dose 325 MG; Start 04/25/17 at 09:00 Multivit/Ca Carb/ B Cmplx/FA/Prenat (Isabel-Brenda) 1 tab DAILY PO Last administered on 05/04/17 09:17; Admin Dose 1 TAB; Start 04/25/17 at 09:00 Pantoprazole (Protonix Tab) 40 mg DAILY@06 PO Last administered on 05/04/17 06 :08; Admin Dose 40 MG; Start 04/25/17 at 06:00 Guaifenesin/ Dextromethorphan (Mucinex Dm) 1 tab BID PO Last administered on 21:44; Admin Dose 1 TAB; Start 04/25/17 at 03:15 Hydralazine HCl (Apresoline) 10 mg Q4H PRN IV ELEVATED BLOOD PRESSURE Last administered on 05/03/17 01:01; Admin Dose 10 MG; Start 04/25/17 at 03:30 Diagnostic Test (Pha) (Accu-Chek) 1 ea 02 XX Last administered on 05/04/17 02: 00; Admin Dose 1 EA; Start 04/26/17 at 02:00 Citric Acid/ Sodium Citrate (Bicitra) 30 ml TID PO Last administered on 21:46; Admin Dose 30 ML; Start 04/25/17 at 13:00 Aspirin (Aspirin) 81 mg DAILY PO Last administered on 04/30/17 10:05; Admin Dose 81 MG; Start 04/25/17 at 12:00; Status Future Hold Heparin Sodium (Porcine) (Heparin (5000 Units/0.5 ml)) 5,000 unit BID SC Last administered on 05/03/17 22:04; Admin Dose 5,000 UNIT; Start 04/26/17 at 09:00 Miscellaneous Information 1 ea NOTE XX Last administered on 04/30/17 17:45; Admin Dose 1 EA; Start 04/25/17 at 12:00 Glucose (Glutose) 15 gm Q15M PRN PO DECREASED GLUCOSE; Start 04/25/17 at 12:00 Glucose (Glutose) 22.5 gm Q15M PRN PO DECREASED GLUCOSE; Start 04/25/17 at 12: 00 Dextrose (D50w Syringe) 25 ml Q15M PRN IV DECREASED GLUCOSE; Start 04/25/17 at 12:00 Dextrose (D50w Syringe) 50 ml Q15M PRN IV DECREASED GLUCOSE; Start 04/25/17 at 12:00 Glucagon (Glucagen) 1 mg Q15M PRN IM DECREASED GLUCOSE; Start 04/25/17 at 12: 00 Glucose (Glutose) 15 gm Q15M PRN BUCCAL DECREASED GLUCOSE; Start 04/25/17 at 12:00 Furosemide (Lasix) 20 mg BID IV Last administered on 05/04/17 12:05; Admin Dose 20 MG; Start 04/26/17 at 09:00 Fish Oil (Fish Oil) 2,000 mg BID PO Last administered on 05/04/17 09:17; Admin Dose 2,000 MG; Start 04/27/17 at 21:00 EZETIMIBE (Zetia) 10 mg DAILY PO Last administered on 05/04/17 09:17; Admin Dose 10 MG; Start 04/28/17 at 09:00 Morphine Sulfate (morphine) 2 mg Q4H PRN IV Pain Last administered on 10:24; Admin Dose 2 MG; Start 04/28/17 at 09:00 Linagliptin (Tradjenta) 5 mg DAILY PO Last administered on 05/04/17 09:18; Admin Dose 5 MG; Start 04/28/17 at 12:00 Tiotropium [place] (Spiriva) 1 inh DAILY INH Last administered on 05/04/17 09: 07; Admin Dose 1 INH; Start 04/30/17 at 13:30 Salmeterol Xinafoate/ Fluticasone (Advair 250/50 Diskus) 1 inh BID INH Last administered on 05/04/17 09:07; Admin Dose 1 INH; Start 04/30/17 at 21:00 Amlodipine Besylate (Norvasc) 5 mg BID PO Last administered on 05/04/17 09:18 ; Admin Dose 5 MG; Start 05/03/17 at 21:00 Insulin Glargine (Lantus) 35 unit BID SC Last administered on 05/03/17 22:04; Admin Dose 35 UNIT; Start 12/8/17 at 21:00 Carvedilol (Coreg) 3.125 mg BID PO Last administered on 05/04/17t 09:18; Admin Dose 3.125 MG; Start 05/04/17 at 09:00 GORGE RIVAS NP May 04, 2017 18:22
[2017-05-04] MEDS: ATORVASTATIN 80 MG TAB PO SCH (21:02)
[2017-05-05] VITALS (19 sets, daily range): BP systolic 128–173; BP diastolic 53–85; PULSE 61–84; RESP 17–20
[2017-05-05] MEDS: ALBUTEROL/IPRATROPIUM (NEB) 3 ML AMP HHN SCH ×6 (00:08→20:47)
--- NOTE | 2017-05-05 01:31 | CONS ---
Date/Time of Note Date/Time of Note DATE: TIME: 13:26 Late entry Assessment/Plan Assessment/Plan Problems: (1) Diabetes mellitus type 2 in obese Status: Chronic Comment: good glycemic control now that patient off steroids Additional Assessment/Plan Monitor blood glucose levels and adjust basal insulin dose Consultation Date/Type/Reason Admit Date/Time Apr 24, 2017 at 19:05 Initial Consult Date 05/01/17 Type of Consultation: endocrine Referring Provider: NANY PRIEST VEGETABLE CUTTER 24 HR Interval Summary Free Text/Dictation Patient family at bedside. No new issues Exam/Review of Systems Vital Signs Vitals Vital Signs Date Time Temp Pulse Resp B/P Pulse Ox O2 Delivery O2 Flow Rate FiO2 05/05/17 00:28 61 05/05/17 00:08 21 05/05/17 00:08 18 93 05/04/17 23:51 97.9 123/62 05/04/17 17:05 Nasal Cannula 05/04/17 15:50 2.0 Intake and Output 05/04/17 05/04/17 05/05/17 15:00 23:00 07:00 Intake Total 290 ml Output Total 10 ml Balance 280 ml Results Result Diagram: 05/04/1722 05/04/17 0622 Results 24 hrs Laboratory Tests Test 05/04/17 02:13 05/04/17 06:22 05/04/17 09:04 05/04/17 12:16 Bedside Glucose 215 151 130 White Blood Count 13.5 #H Red Blood Count 2.05 L Hemoglobin 7.9 L Hematocrit 20.2 L Mean Corpuscular Volume 98.5 Mean Corpuscular Hemoglobin 38.5 #H Mean Corpuscular Hemoglobin Concent 39.1 H Red Cell Distribution Width 23.6 #H Platelet Count 260 Mean Platelet Volume 13.4 H Segmented Neutrophils % (Manual) 72 Band Neutrophils % (Manual) 3 Lymphocytes % (Manual) 13 L Monocytes % (Manual) 9 Eosinophils % (Manual) 1 Metamyelocytes % (manual) 1 H Myelocytes % (Manual) 1 H Nucleated Red Blood Cells % 2 H Neutrophils # (Manual) 9.8 H Band Neutrophils # 0.4 Absolute Lymphocytes (Manual) 1.7 Absolute Monocytes (Manual) 1.2 H Metamyelocytes # 0.1 H Myelocytes # 0.1 H Platelet Estimate NORMAL Polychromasia 3+ Hypochromasia 1+ Poikilocytosis 1+ Anisocytosis 2+ Microcytosis 2+ Sodium Level 139 Potassium Level 3.4 L Chloride Level 99 Carbon Dioxide Level 29 Anion Gap 14 Blood Urea Nitrogen 62 H Creatinine 4.22 H Glucose Level 158 Calcium Level 8.7 Test 05/04/17 17:07 05/04/17 20:06 Bedside Glucose 141 71 Medications Medications Current Medications Ondansetron HCl (Zofran Tab) 4 mg Q6H PRN PO NAUSEA AND/OR VOMITING; Start at 23:00 Nitroglycerin (Nitroglycerin (Sl Tab) 0.4 Mg) 1 tab Q5M PRN SL CHEST PAIN; Start 04/24/17 at 23:00 Docusate Sodium (Colace) 100 mg Q12H PRN PO CONSTIPATION; Start 04/24/17 at 23 :00 Bisacodyl (Dulcolax) 5 mg DAILY PRN PO CONSTIPATION; Start 04/24/17 at 23:00 Atorvastatin Calcium (Lipitor) 80 mg QHS PO Last administered on 05/04/17 21: 02; Admin Dose 80 MG; Start 04/25/17 at 21:00 Ergocalciferol (Drisdol) 50,000 unit Mo@09 PO Last administered on 04/29/17 17 :21; Admin Dose 50,000 UNIT; Start 04/24/17 at 23:00 Ferrous Sulfate (Ferrous Sulfate (Ec)) 325 mg DAILY PO Last administered on 09:16; Admin Dose 325 MG; Start 04/25/17 at 09:00 Multivit/Ca Carb/ B Cmplx/FA/Prenat (Isabel-Brenda) 1 tab DAILY PO Last administered on 05/04/17 09:17; Admin Dose 1 TAB; Start 04/25/17 at 09:00 Pantoprazole (Protonix Tab) 40 mg DAILY@06 PO Last administered on 05/04/17 06 :08; Admin Dose 40 MG; Start 04/25/17 at 06:00 Guaifenesin/ Dextromethorphan (Mucinex Dm) 1 tab BID PO Last administered on 21:03; Admin Dose 1 TAB; Start 04/25/17 at 03:15 Hydralazine HCl (Apresoline) 10 mg Q4H PRN IV ELEVATED BLOOD PRESSURE Last administered on 05/03/17 01:01; Admin Dose 10 MG; Start 04/25/17 at 03:30 Diagnostic Test (Pha) (Accu-Chek) 1 ea 02 XX Last administered on 05/04/17 02: 00; Admin Dose 1 EA; Start 04/26/17 at 02:00 Citric Acid/ Sodium Citrate (Bicitra) 30 ml TID PO Last administered on 21:01; Admin Dose 30 ML; Start 04/25/17 at 13:00 Aspirin (Aspirin) 81 mg DAILY PO Last administered on 04/30/17 10:05; Admin Dose 81 MG; Start 04/25/17 at 12:00; Status Future Hold Heparin Sodium (Porcine) (Heparin (5000 Units/0.5 ml)) 5,000 unit BID SC Last administered on 05/03/17 22:04; Admin Dose 5,000 UNIT; Start 04/26/17 at 09:00 Miscellaneous Information 1 ea NOTE XX Last administered on 04/30/17 17:45; Admin Dose 1 EA; Start 04/25/17 at 12:00 Glucose (Glutose) 15 gm Q15M PRN PO DECREASED GLUCOSE; Start 04/25/17 at 12:00 Glucose (Glutose) 22.5 gm Q15M PRN PO DECREASED GLUCOSE; Start 04/25/17 at 12: 00 Dextrose (D50w Syringe) 25 ml Q15M PRN IV DECREASED GLUCOSE; Start 04/25/17 at 12:00 Dextrose (D50w Syringe) 50 ml Q15M PRN IV DECREASED GLUCOSE; Start 04/25/17 at 12:00 Glucagon (Glucagen) 1 mg Q15M PRN IM DECREASED GLUCOSE; Start 04/25/17 at 12: 00 Glucose (Glutose) 15 gm Q15M PRN BUCCAL DECREASED GLUCOSE; Start 04/25/17 at 12:00 Furosemide (Lasix) 20 mg BID IV Last administered on 05/04/17 21:01; Admin Dose 20 MG; Start 04/26/17 at 09:00 Fish Oil (Fish Oil) 2,000 mg BID PO Last administered on 05/04/17 21:02; Admin Dose 2,000 MG; Start 04/27/17 at 21:00 EZETIMIBE (Zetia) 10 mg DAILY PO Last administered on 05/04/17 09:17; Admin Dose 10 MG; Start 04/28/17 at 09:00 Morphine Sulfate (morphine) 2 mg Q4H PRN IV Pain Last administered on 10:24; Admin Dose 2 MG; Start 04/28/17 at 09:00 Linagliptin (Tradjenta) 5 mg DAILY PO Last administered on 05/04/17 09:18; Admin Dose 5 MG; Start 04/28/17 at 12:00 Tiotropium [place] (Spiriva) 1 inh DAILY INH Last administered on 05/04/17 09: 07; Admin Dose 1 INH; Start 04/30/17 at 13:30 Salmeterol Xinafoate/ Fluticasone (Advair 250/50 Diskus) 1 inh BID INH Last administered on 05/04/17 21:01; Admin Dose 1 INH; Start 04/30/17 at 21:00 Amlodipine Besylate (Norvasc) 5 mg BID PO Last administered on 05/04/17 21:02 ; Admin Dose 5 MG; Start 05/03/17 at 21:00 Insulin Glargine (Lantus) 35 unit BID SC Last administered on 05/03/17 22:04; Admin Dose 35 UNIT; Start 05/03/17 at 21:00 Carvedilol (Coreg) 3.125 mg BID PO Last administered on 05/04/17 21:02; Admin Dose 3.125 MG; Start 05/04/17 at 09:00 VIOLETTE RAMÍREZ MD May 05, 2017 01:31
[2017-05-05] MEDS: ACCU-CHEK XX SCH (02:00)
[2017-05-05] MEDS: PANTOPRAZOLE (EC) 40 MG TAB PO SCH (06:26)
[2017-05-05 06:45] LABS: CALCIUM 8.8 mg/dl (8.4-10.2); CREATININE 4.41 mg/dl (0.61-1.24); POTASSIUM 3.7 mmol/L (3.5-5.1)
--- NOTE | 2017-05-05 07:38 | RADRPT ---
PROCEDURE: Intraoperative fluoroscopy CLINICAL INDICATION: pain TECHNIQUE: Fluoroscopic spot images from an intraoperative procedure submitted. Fluoro time: 168 seconds Number of images/fluoroscopic sequences: 2 COMPARISON: none FINDINGS: Fluoroscopic images of the chest demonstrates a right-sided Perma-Cath in place. RPTAT: AA IMPRESSION: Fluoroscopic guidance for Perma-Cath placement. Please refer to the operative note for more information. .Gaston De La Cruz MD, MD Date Time Electronically viewed and signed by .Gaston De La Cruz MD, on 05/05/2017 07:38 .S/
[2017-05-05 07:42] LABS: ABNORMAL IP MESSAGE 1; BASOPHILS % 0.2 % (0.0-2.0); EOSINOPHILS # 0.1 10^3/ul (0.0-0.5); EOSINOPHILS % 1.1 % (0.0-7.0); HEMATOCRIT 26.3 % (42.0-52.0); LYMPHOCYTES # 1.2 10^3/ul (0.8-2.9); LYMPHOCYTES % 9.7 % (15.0-51.0); MEAN CORPUSCULAR HEMOGLOBIN 31.7 pg (29.0-33.0); MEAN CORPUSCULAR VOLUME 90.7 fl (82.0-101.0); MONOCYTE # 0.8 10^3/ul (0.3-0.9); MONOCYTES % 6.4 % (0.0-11.0); NEUTROPHILS % 80.8 % (39.0-77.0); NUCLEATED RED BLOOD CELLS # 0.1 10^3/ul (0.0-0.0); NUCLEATED RED BLOOD CELLS% 0.7 /100WBC (0.0-0.0); POSITIVE DIFF @See below; RED CELL DISTRIBUTION WIDTH 17.6 % (11.5-14.5); WHITE BLOOD COUNT 12.3 10^3/ul (4.8-10.8)
[2017-05-05 07:45] LABS: HEMOGLOBIN 9.2 g/dl (14.0-18.0); PLATELET COUNT 198 10^3/UL (140-415)
[2017-05-05] MEDS: BUDESONIDE (NEB) 0.5MG/2ML AMP HHN SCH ×2 (08:20→20:00)
[2017-05-05] MEDS: INSULIN GLARGINE [LANtus] 3 ML PEN SC SCH ×2 (08:26→21:34)
[2017-05-05] MEDS: HEPARIN 5,000 UNIT/0.5 ML VIAL SC SCH ×2 (08:27→21:34)
[2017-05-05] MEDS: EZETIMIBE 10 MG TAB PO SCH (08:29)
[2017-05-05] MEDS: FISH OIL 1,000 MG CAP PO SCH ×2 (08:29→21:02)
[2017-05-05] MEDS: FERROUS SULFATE (EC) 325 MG TAB PO SCH (08:29)
[2017-05-05] MEDS: CITRIC ACID/SODIUM CITRATE 15 ML CUP PO SCH ×3 (08:29→21:01)
[2017-05-05] MEDS: TIOTROPIUM 18 MCG CAPSULE INHA DEV INH SCH (08:29)
[2017-05-05] MEDS: LINAGLIPTIN 5 MG TABLET PO SCH (08:29)
[2017-05-05] MEDS: GUAIFENESIN/DM (SR) TAB PO SCH ×2 (08:30→21:02)
[2017-05-05] MEDS: MULTIVIT/CA CARB/B CMPLX/FA TAB PO SCH (08:30)
[2017-05-05] MEDS: SALMETEROL/FLUTICASONE 250/50 INHA INH SCH ×2 (08:30→21:00)
[2017-05-05] MEDS: AMLODIPINE 5 MG TAB PO SCH ×2 (08:30→21:03)
[2017-05-05] MEDS: FUROSEMIDE 20 MG INJ IV SCH (08:36)
[2017-05-05] MEDS: INSULIN ASPART [NOVOLOG] 3 ML PEN SC SCH ×7 (09:57→21:34)
--- NOTE | 2017-05-05 11:02 | PN ---
Date/Time of Note Date/Time of Note DATE: 05/05/17 TIME: 10:55 Assessment/Plan VTE Prophylaxis VTE Prophylaxis Intervention: heparin Lines/Catheters IV [facility] PERMACAT[facility]TER Urinary Cath still in place: No Assessment/Plan Chief Complaint/Hosp Course Assessment and plan 1. Acute respiratory failure. Secondary to fluid overload. Continue on breathing tx and oxygen. Titrate down as tolerated. Improving. Continue dialysis 2. Non-ST elevated myocardial infarction suspect type II event considering underlying worsening renal function. Continue on antiplatelet therapy. Home Care Liaison following. Continue recommendations. 3. Gram-positive bacteremia. Suspect contaminant. ID consult is following. Antibiotic regimen per ID consult. WBC downward trending. 4. Acute on chronic CHF with diastolic dysfunction. Continue on cardiovascular medications. Continue dialysis. Improved 5. Pulmonary hypertension. Noted with PA systolic pressure of 44 mmHg. Continue on O2. 6. CAD. Patient is status post PTCA in the past. Continue on antiplatelet therapy. 7. Metabolic acidosis secondary to worsening renal function. Continue on Bicitra per truer pinion and wheel. 8. Dyslipidemia. Continue on statin medication. 9. Diabetes. Continue on insulin regimen. Adjust as needed. 10. Essential hypertension continue antihypertensives and adjust needed. 11. Left popliteal vein DVT. Patient did have prior history of DVT in the lower extremities and was taking Xarelto at home. Discontinued now due to worsening renal function. Follow-up with vascular surgeon noy. 12. Acute on chronic kidney disease. HD per nephrology Disposition and plan: continue HD appears improved. d/c when cleared by consultants. Discussed plan of care with Dr. York Problems: Subjective 24 Hr Interval Summary Free Text/Dictation no s/s of distress. comfortable at present Exam/Review of Systems Vital Signs Vitals Vital Signs Date Time Temp Pulse Resp B/P Pulse Ox O2 Delivery O2 Flow Rate FiO2 05/05/17 08:32 Nasal Cannula 2.0 05/05/17 08:13 70 05/05/17 07:59 97.6 18 169/72 94 05/05/17 00:08 21 Intake and Output 05/04/17 05/04/17 05/05/17 15:00 23:00 07:00 Intake Total 290 ml 200 ml Output Total 10 ml Balance 280 ml 200 ml Exam Constitutional: alert Head: normocephalic Eyes: nl conjunctiva Respiratory: diminished breath sounds Cardiovascular: other (regular rate) Gastrointestinal: non-tender, soft Musculoskeletal: swelling (minimal ble ) 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: QUANTITATIVE STRATEGY ANALYST II-XII intact, nl mental status Skin: No rash or lesions Results Result Diagram: 05/05/17 0549 05/05/17 0549 Results 24 hrs Laboratory Tests Test 05/04/17 12:16 05/04/17 17:07 05/04/17 20:06 05/05/17 05:49 Bedside Glucose 130 141 71 White Blood Count 12.3 H Red Blood Count 2.90 #L Hemoglobin 9.2 L Hematocrit 26.3 #L Mean Corpuscular Volume 90.7 Mean Corpuscular Hemoglobin 31.7 Mean Corpuscular Hemoglobin Concent 35.0 Red Cell Distribution Width 17.6 #H Platelet Count 198 # Mean Platelet Volume Neutrophils % 80.8 H Lymphocytes % 9.7 L Monocytes % 6.4 Eosinophils % 1.1 Basophils % 0.2 Nucleated Red Blood Cells % 0.7 H Neutrophils # 10.0 H Lymphocytes # 1.2 Monocytes # 0.8 Eosinophils # 0.1 Basophils # 0.0 Nucleated Red Blood Cells # 0.1 H Sodium Level 138 Potassium Level 3.7 Chloride Level 100 Carbon Dioxide Level 30 Anion Gap 12 Blood Urea Nitrogen 66 H Creatinine 4.41 H Glucose Level 170 Calcium Level 8.8 Test 05/05/17 06:28 05/05/17 08:06 05/05/17 09:54 Lab Scanned Report BLOOD TRANSFUSION Bedside Glucose 272 H 315 H Medications Medications Current Medications Ondansetron HCl (Zofran Tab) 4 mg Q6H PRN PO NAUSEA AND/OR VOMITING; Start at 23:00 Nitroglycerin (Nitroglycerin (Sl Tab) 0.4 Mg) 1 tab Q5M PRN SL CHEST PAIN; Start 04/24/17 at 23:00 Docusate Sodium (Colace) 100 mg Q12H PRN PO CONSTIPATION; Start 04/24/17 at 23 :00 Bisacodyl (Dulcolax) 5 mg DAILY PRN PO CONSTIPATION; Start 04/24/17 at 23:00 Atorvastatin Calcium (Lipitor) 80 mg QHS PO Last administered on 05/04/17t 21: 02; Admin Dose 80 MG; Start 04/25/17 at 21:00 Ergocalciferol (Drisdol) 50,000 unit Mo@09 PO Last administered on 04/29/17 17 :21; Admin Dose 50,000 UNIT; Start 04/24/17 at 23:00 Ferrous Sulfate (Ferrous Sulfate (Ec)) 325 mg DAILY PO Last administered on 08:29; Admin Dose 325 MG; Start 04/25/17 at 09:00 Multivit/Ca Carb/ B Cmplx/FA/Prenat (Isabel-Brenda) 1 tab DAILY PO Last administered on 05/05/17 08:30; Admin Dose 1 TAB; Start 04/25/17 at 09:00 Pantoprazole (Protonix Tab) 40 mg DAILY@06 PO Last administered on 05/05/17 06:26; Admin Dose 40 MG; Start 04/25/17 at 06:00 Guaifenesin/ Dextromethorphan (Mucinex Dm) 1 tab BID PO Last administered on 08:30; Admin Dose 1 TAB; Start 04/25/17 at 03:15 Hydralazine HCl (Apresoline) 10 mg Q4H PRN IV ELEVATED BLOOD PRESSURE Last administered on 05/03/17 01:01; Admin Dose 10 MG; Start 04/25/17 at 03:30 Diagnostic Test (Pha) (Accu-Chek) 1 ea 02 XX Last administered on 05/04/17 02: 00; Admin Dose 1 EA; Start 04/26/17 at 02:00 Citric Acid/ Sodium Citrate (Bicitra) 30 ml TID PO Last administered on 08:29; Admin Dose 30 ML; Start 04/25/17 at 13:00 Aspirin (Aspirin) 81 mg DAILY PO Last administered on 04/30/17 10:05; Admin Dose 81 MG; Start 04/25/17 at 12:00; Status Future Hold Heparin Sodium (Porcine) (Heparin (5000 Units/0.5 ml)) 5,000 unit BID SC Last administered on 05/05/17 08:27; Admin Dose 5,000 UNIT; Start 04/26/17 at 09:00 Miscellaneous Information 1 ea NOTE XX Last administered on 04/30/17 17:45; Admin Dose 1 EA; Start 04/25/17 at 12:00 Glucose (Glutose) 15 gm Q15M PRN PO DECREASED GLUCOSE; Start 04/25/17 at 12:00 Glucose (Glutose) 22.5 gm Q15M PRN PO DECREASED GLUCOSE; Start 04/25/17 at 12: 00 Dextrose (D50w Syringe) 25 ml Q15M PRN IV DECREASED GLUCOSE; Start 04/25/17 at 12:00 Dextrose (D50w Syringe) 50 ml Q15M PRN IV DECREASED GLUCOSE; Start 04/25/17 at 12:00 Glucagon (Glucagen) 1 mg Q15M PRN IM DECREASED GLUCOSE; Start 04/25/17 at 12: 00 Glucose (Glutose) 15 gm Q15M PRN BUCCAL DECREASED GLUCOSE; Start 04/25/17 at 12:00 Furosemide (Lasix) 20 mg BID IV Last administered on 05/05/17 08:36; Admin Dose 20 MG; Start 04/26/17 at 09:00 Fish Oil (Fish Oil) 2,000 mg BID PO Last administered on 05/05/17 08:29; Admin Dose 2,000 MG; Start 04/27/17 at 21:00 EZETIMIBE (Zetia) 10 mg DAILY PO Last administered on 05/05/17 08:29; Admin Dose 10 MG; Start 04/28/17 at 09:00 Morphine Sulfate (morphine) 2 mg Q4H PRN IV Pain Last administered on 10:24; Admin Dose 2 MG; Start 04/28/17 at 09:00 Linagliptin (Tradjenta) 5 mg DAILY PO Last administered on 05/05/17 08:29; Admin Dose 5 MG; Start 04/28/17 at 12:00 Tiotropium [place] (Spiriva) 1 inh DAILY INH Last administered on 05/05/17 08 :29; Admin Dose 1 INH; Start 04/30/17 at 13:30 Salmeterol Xinafoate/ Fluticasone (Advair 250/50 Diskus) 1 inh BID INH Last administered on 05/05/17 08:30; Admin Dose 1 INH; Start 04/30/17 at 21:00 Amlodipine Besylate (Norvasc) 5 mg BID PO Last administered on 05/04/17 21:02 ; Admin Dose 5 MG; Start 05/03/17 at 21:00 Insulin Glargine (Lantus) 35 unit BID SC Last administered on 05/05/17 08:26 ; Admin Dose 35 UNIT; Start 05/03/17 at 21:00 Carvedilol (Coreg) 3.125 mg BID PO Last administered on 05/04/17 21:02; Admin Dose 3.125 MG; Start 05/04/17 at 09:00 PERRY JUAREZ May 05, 2017 11:02
--- NOTE | 2017-05-05 12:10 | PN ---
Date/Time of Note Date/Time of Note DATE: 05/05/17 TIME: 12:08 Assessment/Plan VTE Prophylaxis VTE Prophylaxis Intervention: SCD's Lines/Catheters IV [facility] permacath Urinary Cath still in place: No Assessment/Plan Chief Complaint/Hosp Course Chief Complaint/Hosp Course Assessment: Anemia rule out GI bleed EGD 05/03/17 Impression: Moderate distal esophagitis. Post distal gastrectomy Billroth II anastomosis. Moderate bile reflux gastritis. Rule out H. pylori infection. Biopsies obtained Normal afferent and efferent jejunal mucosa Colonoscopy 05/03/17 Impression: Suboptimal examination due to poor preparation No gross lesions present. Moderate-sized internal hemorrhoids. Volume overload Acute kidney injury with history of CKD, started on hemodialysis Acute decompensated diastolic congestive heart failure Diabetes CAD with history of PCI over 10 years ago Hypertension Dyslipidemia History of DVT, previously on anticoagulation Intermittent Mobitz type I, asymptomatic Plan: H/H stable If no evidence of further bleeding repeat colonoscopy within 6 months to a year is recommended Continue PPI therapy/Carafate Review pathology once available Patient seen in collaboration with Subjective: Course reviewed with nursing staff Patient interviewed and examined All labs, imaging and other results reviewed The patient resting in bed currently receiving HD, tolerating well, s/p Madi Catheter placement. H/H currently stable, If evidence of bleeding will require more thorough examination with adequate preparation. Patient remains stable at this time. PHYSICAL EXAMINATION: GENERAL: Well developed, obese, well nourished, alert & oriented x 3, in no acute distress SKIN: No lesions, pale, no stigmata chronic liver disease, no evidence of bleeding diathesis, s/p Madi catheter placement-femoral catheter in place LYMPHATIC: No palpable lymphadenopathy. HEAD: Normocephalic, atraumatic, no tenderness. EYES: Pupils equal reactive to light and accommodation, full extraocular movements, sclera clear, non-icteric, no discharge. EARS/NOSE AND THROAT: Ears normal, nose normal, oropharynx normal, oral membranes well hydrated without lesions. NECK: Supple, no masses, thyroid normal, CHEST: Inspection within normal limits. CARDIOVASCULAR: Heart: Regular rate at this time RESPIRATORY: Lungs clear to auscultation and percussion, no wheezing, no rubs GASTROINTESTINAL AND LIVER: Abdomen: Soft, obese, non tenderness, non-distended , no hernias, no masses, no organomegaly, no ascites, no guarding, no rebound tenderness, normoactive bowel sounds. Rectal: Deferred. GENITOURINARY: Male genitalia within normal limits. EXTREMITIES: No cyanosis, clubbing or edema. Problems: Exam/Review of Systems Vital Signs Vitals Vital Signs Date Time Temp Pulse Resp B/P Pulse Ox O2 Delivery O2 Flow Rate FiO2 05/05/17 11:45 97.9 69 18 168/68 95 05/05/17 08:32 Nasal Cannula 2.0 05/05/17 00:08 21 Intake and Output 05/04/17 05/04/17 05/05/17 15:00 23:00 07:00 Intake Total 290 ml 200 ml Output Total 10 ml Balance 280 ml 200 ml Results Result Diagram: 05/05/17 0549 05/05/17 0549 Results 24 hrs Laboratory Tests Test 05/04/17 12:16 05/04/17 17:07 05/04/17 20:06 05/05/17 05:49 Bedside Glucose 130 141 71 White Blood Count 12.3 H Red Blood Count 2.90 #L Hemoglobin 9.2 L Hematocrit 26.3 #L Mean Corpuscular Volume 90.7 Mean Corpuscular Hemoglobin 31.7 Mean Corpuscular Hemoglobin Concent 35.0 Red Cell Distribution Width 17.6 #H Platelet Count 198 # Mean Platelet Volume Neutrophils % 80.8 H Lymphocytes % 9.7 L Monocytes % 6.4 Eosinophils % 1.1 Basophils % 0.2 Nucleated Red Blood Cells % 0.7 H Neutrophils # 10.0 H Lymphocytes # 1.2 Monocytes # 0.8 Eosinophils # 0.1 Basophils # 0.0 Nucleated Red Blood Cells # 0.1 H Sodium Level 138 Potassium Level 3.7 Chloride Level 100 Carbon Dioxide Level 30 Anion Gap 12 Blood Urea Nitrogen 66 H Creatinine 4.41 H Glucose Level 170 Calcium Level 8.8 Test 05/05/17 06:28 05/05/17 08:06 05/05/17 09:54 Lab Scanned Report BLOOD TRANSFUSION Bedside Glucose 272 H 315 H Medications Medications Current Medications Ondansetron HCl (Zofran Tab) 4 mg Q6H PRN PO NAUSEA AND/OR VOMITING; Start at 23:00 Nitroglycerin (Nitroglycerin (Sl Tab) 0.4 Mg) 1 tab Q5M PRN SL CHEST PAIN; Start 04/24/17 at 23:00 Docusate Sodium (Colace) 100 mg Q12H PRN PO CONSTIPATION; Start 04/24/17 at 23 :00 Bisacodyl (Dulcolax) 5 mg DAILY PRN PO CONSTIPATION; Start 04/24/17 at 23:00 Atorvastatin Calcium (Lipitor) 80 mg QHS PO Last administered on 05/04/17 21: 02; Admin Dose 80 MG; Start 04/25/17 at 21:00 Ergocalciferol (Drisdol) 50,000 unit Mo@09 PO Last administered on 04/29/17 17 :21; Admin Dose 50,000 UNIT; Start 04/24/17 at 23:00 Ferrous Sulfate (Ferrous Sulfate (Ec)) 325 mg DAILY PO Last administered on 08:29; Admin Dose 325 MG; Start 04/25/17 at 09:00 Multivit/Ca Carb/ B Cmplx/FA/Prenat (Isabel-Brenda) 1 tab DAILY PO Last administered on 05/05/17 08:30; Admin Dose 1 TAB; Start 04/25/17 at 09:00 Pantoprazole (Protonix Tab) 40 mg DAILY@06 PO Last administered on 05/05/17 06:26; Admin Dose 40 MG; Start 04/25/17 at 06:00 Guaifenesin/ Dextromethorphan (Mucinex Dm) 1 tab BID PO Last administered on 08:30; Admin Dose 1 TAB; Start 04/25/17 at 03:15 Hydralazine HCl (Apresoline) 10 mg Q4H PRN IV ELEVATED BLOOD PRESSURE Last administered on 05/03/17 01:01; Admin Dose 10 MG; Start 04/25/17 at 03:30 Diagnostic Test (Pha) (Accu-Chek) 1 ea 02 XX Last administered on 05/04/17 02: 00; Admin Dose 1 EA; Start 04/26/17 at 02:00 Citric Acid/ Sodium Citrate (Bicitra) 30 ml TID PO Last administered on 08:29; Admin Dose 30 ML; Start 04/25/17 at 13:00 Aspirin (Aspirin) 81 mg DAILY PO Last administered on 04/30/17 10:05; Admin Dose 81 MG; Start 04/25/17 at 12:00; Status Future Hold Heparin Sodium (Porcine) (Heparin (5000 Units/0.5 ml)) 5,000 unit BID SC Last administered on 05/05/17 08:27; Admin Dose 5,000 UNIT; Start 04/26/17 at 09:00 Miscellaneous Information 1 ea NOTE XX Last administered on 04/30/17 17:45; Admin Dose 1 EA; Start 04/25/17 at 12:00 Glucose (Glutose) 15 gm Q15M PRN PO DECREASED GLUCOSE; Start 04/25/17 at 12:00 Glucose (Glutose) 22.5 gm Q15M PRN PO DECREASED GLUCOSE; Start 04/25/17 at 12: 00 Dextrose (D50w Syringe) 25 ml Q15M PRN IV DECREASED GLUCOSE; Start 04/25/17 at 12:00 Dextrose (D50w Syringe) 50 ml Q15M PRN IV DECREASED GLUCOSE; Start 04/25/17 at 12:00 Glucagon (Glucagen) 1 mg Q15M PRN IM DECREASED GLUCOSE; Start 04/25/17 at 12: 00 Glucose (Glutose) 15 gm Q15M PRN BUCCAL DECREASED GLUCOSE; Start 04/25/17 at 12:00 Furosemide (Lasix) 20 mg BID IV Last administered on 05/05/17 08:36; Admin Dose 20 MG; Start 04/26/17 at 09:00 Fish Oil (Fish Oil) 2,000 mg BID PO Last administered on 05/05/17 08:29; Admin Dose 2,000 MG; Start 04/27/17 at 21:00 EZETIMIBE (Zetia) 10 mg DAILY PO Last administered on 05/05/17 08:29; Admin Dose 10 MG; Start 04/28/17 at 09:00 Morphine Sulfate (morphine) 2 mg Q4H PRN IV Pain Last administered on 10:24; Admin Dose 2 MG; Start 04/28/17 at 09:00 Linagliptin (Tradjenta) 5 mg DAILY PO Last administered on 05/05/17 08:29; Admin Dose 5 MG; Start 04/28/17 at 12:00 Tiotropium [place] (Spiriva) 1 inh DAILY INH Last administered on 05/05/17 08 :29; Admin Dose 1 INH; Start 04/30/17 at 13:30 Salmeterol Xinafoate/ Fluticasone (Advair 250/50 Diskus) 1 inh BID INH Last administered on 05/05/17 08:30; Admin Dose 1 INH; Start 04/30/17 at 21:00 Amlodipine Besylate (Norvasc) 5 mg BID PO Last administered on 05/04/17 21:02 ; Admin Dose 5 MG; Start 05/03/17 at 21:00 Insulin Glargine (Lantus) 35 unit BID SC Last administered on 05/05/17 08:26 ; Admin Dose 35 UNIT; Start 05/03/17 at 21:00 Carvedilol (Coreg) 3.125 mg BID PO Last administered on 05/04/17 21:02; Admin Dose 3.125 MG; Start 05/04/17 at 09:00 HERRERA WORRELL May 05, 2017 12:10
--- NOTE | 2017-05-05 13:49 | CONS ---
Date/Time of Note Date/Time of Note DATE: 05/05/17 TIME: 13:07 Assessment/Plan Assessment/Plan Additional Assessment/Plan - Hypokalemia-resolved - Leukocytosis- monitor CBC - Oliguric TROY on CKD III/IV Due to possible Cardiorenal syndrome with worsening renal failue due to diabetic nephropathy- failed outpatient PO lasix therapy - progressed to ESRD -started on HD on04/29/2017 for recurrent CHF and pulmonary edema - H/o CKD due to diabetic nehropathy as per pt was stage IV/V with eGFR 15 as outpatient - Acute hyperkalemia due to TORY on CKD - resolved after pt gets started on HD - Metabolic acidosis due to worsening renal failure - H/ CAD S/p previous coronary angiogram as per patient - Hypertension - Type II DM - Hyperlipidemia - Acute NSETMI due to CHF - severe anemia despite getting PRBC, concerned about GI bleeding, Plan - hepatitis C antibody positive, Hepatitis A antibody positive - EGD showed distal esophagitis, S/p HD today 3 L removed , will plan for HD tomorrow after permacath placement - Renal US showed small size kidneys, no hydronephrosis, c/w CKD on Epogen for anemia - plan to dc Madi cath post HD today - Plan for fistula placement as outpatient will follow up Dw Dr Joby Tobar Consultation Date/Type/Reason Admit Date/Time Apr 24, 2017 at 19:05 Initial Consult Date 05/01/17 Type of Consultation: endocrine Referring Provider: NANY PRIEST CADD TECHNICIAN 24 HR Interval Summary Free Text/Dictation - NAD - WBC tended up, afebrile - Having HD -using permacth -tolerating well - sp Perma cath placement on right chest 05/04/2017 - plan to dc Madi at rt femoral- post HD today - Plan for fistula placement as outpatient - no new issues reported overnight - family at bed side- all Qs answered - dw staff Detailed Summary Respiratory: no complaints Cardiovascular: no complaints Gastrointestinal: no complaints Genitourinary: no complaints Musculoskeletal: no complaints Exam/Review of Systems Vital Signs Vitals Vital Signs Date Time Temp Pulse Resp B/P Pulse Ox O2 Delivery O2 Flow Rate FiO2 05/05/17 12:27 80 05/05/17 11:45 97.9 18 168/68 95 05/05/17 08:32 Nasal Cannula 2.0 05/05/17 08:12 21 Intake and Output 05/04/17 05/04/17 05/05/17 14:59 22:59 06:59 Intake Total 290 ml 200 ml Output Total 10 ml Balance 280 ml 200 ml Exam Constitutional: alert, well developed Respiratory: diminished breath sounds Cardiovascular: nl pulses Gastrointestinal: non-tender, soft Musculoskeletal: nl extremities to inspection 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: nl mental status, nl speech Results Result Diagram: 05/05/17 0549 05/05/17 0549 Results 24 hrs Laboratory Tests Test 05/04/17 17:07 05/04/17 20:06 05/05/17 05:49 05/05/17 06:28 Bedside Glucose 141 71 White Blood Count 12.3 H Red Blood Count 2.90 #L Hemoglobin 9.2 L Hematocrit 26.3 #L Mean Corpuscular Volume 90.7 Mean Corpuscular Hemoglobin 31.7 Mean Corpuscular Hemoglobin Concent 35.0 Red Cell Distribution Width 17.6 #H Platelet Count 198 # Mean Platelet Volume Neutrophils % 80.8 H Lymphocytes % 9.7 L Monocytes % 6.4 Eosinophils % 1.1 Basophils % 0.2 Nucleated Red Blood Cells % 0.7 H Neutrophils # 10.0 H Lymphocytes # 1.2 Monocytes # 0.8 Eosinophils # 0.1 Basophils # 0.0 Nucleated Red Blood Cells # 0.1 H Sodium Level 138 Potassium Level 3.7 Chloride Level 100 Carbon Dioxide Level 30 Anion Gap 12 Blood Urea Nitrogen 66 H Creatinine 4.41 H Glucose Level 170 Calcium Level 8.8 Lab Scanned Report BLOOD TRANSFUSION Test 05/05/17 08:06 05/05/17 09:54 05/05/17 12:18 Bedside Glucose 272 H 315 H 168 Medications Medications Current Medications Ondansetron HCl (Zofran Tab) 4 mg Q6H PRN PO NAUSEA AND/OR VOMITING; Start at 23:00 Nitroglycerin (Nitroglycerin (Sl Tab) 0.4 Mg) 1 tab Q5M PRN SL CHEST PAIN; Start 04/24/17 at 23:00 Docusate Sodium (Colace) 100 mg Q12H PRN PO CONSTIPATION; Start 04/24/17 at 23 :00 Bisacodyl (Dulcolax) 5 mg DAILY PRN PO CONSTIPATION; Start 04/24/17 at 23:00 Atorvastatin Calcium (Lipitor) 80 mg QHS PO Last administered on 05/04/17 21: 02; Admin Dose 80 MG; Start 04/25/17 at 21:00 Ergocalciferol (Drisdol) 50,000 unit Mo@09 PO Last administered on 04/29/17 17 :21; Admin Dose 50,000 UNIT; Start 04/24/17 at 23:00 Ferrous Sulfate (Ferrous Sulfate (Ec)) 325 mg DAILY PO Last administered on 08:29; Admin Dose 325 MG; Start 04/25/17 at 09:00 Multivit/Ca Carb/ B Cmplx/FA/Prenat (Isabel-Brenda) 1 tab DAILY PO Last administered on 05/05/17 08:30; Admin Dose 1 TAB; Start 04/25/17 at 09:00 Pantoprazole (Protonix Tab) 40 mg DAILY@06 PO Last administered on 05/05/17 06:26; Admin Dose 40 MG; Start 04/25/17 at 06:00 Guaifenesin/ Dextromethorphan (Mucinex Dm) 1 tab BID PO Last administered on 08:30; Admin Dose 1 TAB; Start 04/25/17 at 03:15 Hydralazine HCl (Apresoline) 10 mg Q4H PRN IV ELEVATED BLOOD PRESSURE Last administered on 05/03/17 01:01; Admin Dose 10 MG; Start 04/25/17 at 03:30 Diagnostic Test (Pha) (Accu-Chek) 1 ea 02 XX Last administered on 05/04/17 02: 00; Admin Dose 1 EA; Start 04/26/17 at 02:00 Citric Acid/ Sodium Citrate (Bicitra) 30 ml TID PO Last administered on 08:29; Admin Dose 30 ML; Start 04/25/17 at 13:00 Aspirin (Aspirin) 81 mg DAILY PO Last administered on 04/30/17 10:05; Admin Dose 81 MG; Start 04/25/17 at 12:00; Status Future Hold Heparin Sodium (Porcine) (Heparin (5000 Units/0.5 ml)) 5,000 unit BID SC Last administered on 05/05/17 08:27; Admin Dose 5,000 UNIT; Start 04/26/17 at 09:00 Miscellaneous Information 1 ea NOTE XX Last administered on 04/30/17 17:45; Admin Dose 1 EA; Start 04/25/17 at 12:00 Glucose (Glutose) 15 gm Q15M PRN PO DECREASED GLUCOSE; Start 04/25/17 at 12:00 Glucose (Glutose) 22.5 gm Q15M PRN PO DECREASED GLUCOSE; Start 04/25/17 at 12: 00 Dextrose (D50w Syringe) 25 ml Q15M PRN IV DECREASED GLUCOSE; Start 04/25/17 at 12:00 Dextrose (D50w Syringe) 50 ml Q15M PRN IV DECREASED GLUCOSE; Start 04/25/17 at 12:00 Glucagon (Glucagen) 1 mg Q15M PRN IM DECREASED GLUCOSE; Start 04/25/17 at 12: 00 Glucose (Glutose) 15 gm Q15M PRN BUCCAL DECREASED GLUCOSE; Start 04/25/17 at 12:00 Furosemide (Lasix) 20 mg BID IV Last administered on 05/05/17 08:36; Admin Dose 20 MG; Start 04/26/17 at 09:00 Fish Oil (Fish Oil) 2,000 mg BID PO Last administered on 05/05/17 08:29; Admin Dose 2,000 MG; Start 04/27/17 at 21:00 EZETIMIBE (Zetia) 10 mg DAILY PO Last administered on 05/05/17 08:29; Admin Dose 10 MG; Start 04/28/17 at 09:00 Morphine Sulfate (morphine) 2 mg Q4H PRN IV Pain Last administered on 10:24; Admin Dose 2 MG; Start 04/28/17 at 09:00 Linagliptin (Tradjenta) 5 mg DAILY PO Last administered on 05/05/17 08:29; Admin Dose 5 MG; Start 04/28/17 at 12:00 Tiotropium [place] (Spiriva) 1 inh DAILY INH Last administered on 05/05/17 08 :29; Admin Dose 1 INH; Start 04/30/17 at 13:30 Salmeterol Xinafoate/ Fluticasone (Advair 250/50 Diskus) 1 inh BID INH Last administered on 05/05/17 08:30; Admin Dose 1 INH; Start 04/30/17 at 21:00 Amlodipine Besylate (Norvasc) 5 mg BID PO Last administered on 05/04/17 21:02 ; Admin Dose 5 MG; Start 05/03/17 at 21:00 Insulin Glargine (Lantus) 35 unit BID SC Last administered on 05/05/17 08:26 ; Admin Dose 35 UNIT; Start 05/03/17 at 21:00 Carvedilol (Coreg) 3.125 mg BID PO Last administered on 05/04/17 21:02; Admin Dose 3.125 MG; Start 05/04/17 at 09:00 CATARINA GONCALVES May 05, 2017 13:18
--- NOTE | 2017-05-05 15:14 | CONS ---
Date/Time of Note Date/Time of Note DATE: 05/05/17 TIME: 15:10 Assessment/Plan Assessment/Plan Chief Complaint/Hosp Course ID PROGRESS NOTE CURRENT ABX=>OFF ABX S/P CEFEPIME 05/05/17 0549 05/05/17 0549 24H INTERVAL SUMMARY * POD #1 -> s/p 05/04/17 RIGHT IJ PERM CATHETER PLACEMENT * POD #2 -> S/P 05/03/17 EGD: Moderate distal esophagitis.Post distal gastrectomy Billroth II anastomosis. Moderate bile reflux gastritis. Rule out H. pylori infection. Biopsies * A/A/O, spouse present, he is feeling better, No fevers, WBC down today, VSS, NAD EXAM GENERAL: Overweight M, VSS, NAD HEENT: Unremarkable NECK: Supple, full ROM CHEST: Rise symmetrical, without dyspnea on observation ABDOMEN: Soft, NT EXTREMITIES: Warm, SKIN: No diaphoresis, no rash ID ASSESSMENT: 66 yo M admit with: * POD #1 -> s/p 05/04/17 RIGHT IJ PERM CATHETER PLACEMENT * POD #2 -> S/P 05/03/17 EGD: Moderate distal esophagitis.Post distal gastrectomy Billroth II anastomosis. Moderate bile reflux gastritis. Rule out H. pylori infection. Biopsies 1. Systemic inflammatory response syndrome with ongoing leukocytosis, on steroids. 2. Acute chronic obstructive pulmonary disease exacerbation==> s/p Cefepime. 3. Pulmonary edema. 4. End-stage renal disease, now on hemodialysis. 5. Diabetes. 6. History of coronary artery bypass graft. 7. Hypertension. 8. Acute on chronic anemia INVASIVES: PIV ABX ALLERGY: KNDA CURRENT ABX=>OFF ABX S/P CEFEPIME ID PLAN 1. Observe off ABX, will f/u tomorrow 2. Explained EGD biopsy may be back tomorrow, waiting for H.Pylori result, patient/spouse express understanding . . Problems: Consultation Date/Type/Reason Admit Date/Time Apr 24, 2017 at 19:05 Initial Consult Date 05/01/17 Type of Consultation: ID Referring Provider: NANY PRIEST NP Exam/Review of Systems Vital Signs Vitals Vital Signs Date Time Temp Pulse Resp B/P Pulse Ox O2 Delivery O2 Flow Rate FiO2 05/05/17 12:27 80 05/05/17 11:45 97.9 18 168/68 95 05/05/17 08:32 Nasal Cannula 2.0 05/05/17 08:12 21 Intake and Output 05/04/17 05/04/17 05/05/17 15:00 23:00 07:00 Intake Total 290 ml 200 ml Output Total 10 ml Balance 280 ml 200 ml Results Result Diagram: 05/05/17 0549 05/05/17 0549 Results 24 hrs Laboratory Tests Test 05/04/17 17:07 05/04/17 20:06 05/05/17 05:49 05/05/17 06:28 Bedside Glucose 141 71 White Blood Count 12.3 H Red Blood Count 2.90 #L Hemoglobin 9.2 L Hematocrit 26.3 #L Mean Corpuscular Volume 90.7 Mean Corpuscular Hemoglobin 31.7 Mean Corpuscular Hemoglobin Concent 35.0 Red Cell Distribution Width 17.6 #H Platelet Count 198 # Mean Platelet Volume Neutrophils % 80.8 H Lymphocytes % 9.7 L Monocytes % 6.4 Eosinophils % 1.1 Basophils % 0.2 Nucleated Red Blood Cells % 0.7 H Neutrophils # 10.0 H Lymphocytes # 1.2 Monocytes # 0.8 Eosinophils # 0.1 Basophils # 0.0 Nucleated Red Blood Cells # 0.1 H Sodium Level 138 Potassium Level 3.7 Chloride Level 100 Carbon Dioxide Level 30 Anion Gap 12 Blood Urea Nitrogen 66 H Creatinine 4.41 H Glucose Level 170 Calcium Level 8.8 Lab Scanned Report BLOOD TRANSFUSION Test 05/05/17 08:06 05/05/17 09:54 05/05/17 12:18 Bedside Glucose 272 H 315 H 168 Medications Medications Current Medications Ondansetron HCl (Zofran Tab) 4 mg Q6H PRN PO NAUSEA AND/OR VOMITING; Start at 23:00 Nitroglycerin (Nitroglycerin (Sl Tab) 0.4 Mg) 1 tab Q5M PRN SL CHEST PAIN; Start 04/24/17 at 23:00 Docusate Sodium (Colace) 100 mg Q12H PRN PO CONSTIPATION; Start 04/24/17 at 23 :00 Bisacodyl (Dulcolax) 5 mg DAILY PRN PO CONSTIPATION; Start 04/24/17 at 23:00 Atorvastatin Calcium (Lipitor) 80 mg QHS PO Last administered on 05/04/17t 21: 02; Admin Dose 80 MG; Start 04/25/17 at 21:00 Ergocalciferol (Drisdol) 50,000 unit Mo@09 PO Last administered on 04/29/17 17 :21; Admin Dose 50,000 UNIT; Start 04/24/17 at 23:00 Ferrous Sulfate (Ferrous Sulfate (Ec)) 325 mg DAILY PO Last administered on 08:29; Admin Dose 325 MG; Start 04/25/17 at 09:00 Multivit/Ca Carb/ B Cmplx/FA/Prenat (Isabel-Brenda) 1 tab DAILY PO Last administered on 05/05/17 08:30; Admin Dose 1 TAB; Start 04/25/17 at 09:00 Pantoprazole (Protonix Tab) 40 mg DAILY@06 PO Last administered on 05/05/17 06:26; Admin Dose 40 MG; Start 04/25/17 at 06:00 Guaifenesin/ Dextromethorphan (Mucinex Dm) 1 tab BID PO Last administered on 08:30; Admin Dose 1 TAB; Start 04/25/17 at 03:15 Hydralazine HCl (Apresoline) 10 mg Q4H PRN IV ELEVATED BLOOD PRESSURE Last administered on 05/03/17 01:01; Admin Dose 10 MG; Start 04/25/17 at 03:30 Diagnostic Test (Pha) (Accu-Chek) 1 ea 02 XX Last administered on 05/04/17 02: 00; Admin Dose 1 EA; Start 04/26/17 at 02:00 Citric Acid/ Sodium Citrate (Bicitra) 30 ml TID PO Last administered on 08:29; Admin Dose 30 ML; Start 04/25/17 at 13:00 Aspirin (Aspirin) 81 mg DAILY PO Last administered on 04/30/17 10:05; Admin Dose 81 MG; Start 04/25/17 at 12:00; Status Future Hold Heparin Sodium (Porcine) (Heparin (5000 Units/0.5 ml)) 5,000 unit BID SC Last administered on 05/05/17 08:27; Admin Dose 5,000 UNIT; Start 04/26/17 at 09:00 Miscellaneous Information 1 ea NOTE XX Last administered on 04/30/17 17:45; Admin Dose 1 EA; Start 04/25/17 at 12:00 Glucose (Glutose) 15 gm Q15M PRN PO DECREASED GLUCOSE; Start 04/25/17 at 12:00 Glucose (Glutose) 22.5 gm Q15M PRN PO DECREASED GLUCOSE; Start 04/25/17 at 12: 00 Dextrose (D50w Syringe) 25 ml Q15M PRN IV DECREASED GLUCOSE; Start 04/25/17 at 12:00 Dextrose (D50w Syringe) 50 ml Q15M PRN IV DECREASED GLUCOSE; Start 04/25/17 at 12:00 Glucagon (Glucagen) 1 mg Q15M PRN IM DECREASED GLUCOSE; Start 04/25/17 at 12: 00 Glucose (Glutose) 15 gm Q15M PRN BUCCAL DECREASED GLUCOSE; Start 04/25/17 at 12:00 Furosemide (Lasix) 20 mg BID IV Last administered on 05/05/17 08:36; Admin Dose 20 MG; Start 04/26/17 at 09:00 Fish Oil (Fish Oil) 2,000 mg BID PO Last administered on 05/05/17 08:29; Admin Dose 2,000 MG; Start 04/27/17 at 21:00 EZETIMIBE (Zetia) 10 mg DAILY PO Last administered on 05/05/17 08:29; Admin Dose 10 MG; Start 04/28/17 at 09:00 Morphine Sulfate (morphine) 2 mg Q4H PRN IV Pain Last administered on 10:24; Admin Dose 2 MG; Start 04/28/17 at 09:00 Linagliptin (Tradjenta) 5 mg DAILY PO Last administered on 05/05/17 08:29; Admin Dose 5 MG; Start 04/28/17 at 12:00 Tiotropium [place] (Spiriva) 1 inh DAILY INH Last administered on 05/05/17 08 :29; Admin Dose 1 INH; Start 04/30/17 at 13:30 Salmeterol Xinafoate/ Fluticasone (Advair 250/50 Diskus) 1 inh BID INH Last administered on 05/05/17 08:30; Admin Dose 1 INH; Start 04/30/17 at 21:00 Amlodipine Besylate (Norvasc) 5 mg BID PO Last administered on 05/04/17 21:02 ; Admin Dose 5 MG; Start 05/03/17 at 21:00 Insulin Glargine (Lantus) 35 unit BID SC Last administered on 05/05/17 08:26 ; Admin Dose 35 UNIT; Start 05/03/17 at 21:00 Carvedilol (Coreg) 3.125 mg BID PO Last administered on 05/04/17 21:02; Admin Dose 3.125 MG; Start 05/04/17 at 09:00 GORGE RIVAS NP May 05, 2017 15:14
--- NOTE | 2017-05-05 17:09 | CONS ---
Date/Time of Note Date/Time of Note DATE: 05/05/17 TIME: 17:06 Assessment/Plan Assessment/Plan Problems: (1) Diabetes mellitus type 2 in obese Status: Chronic Comment: Patient refused insulin dose last night with resultant rise in glucose today. Despite steroids being discontinued basal requirements appear to be the same. Additional Assessment/Plan Continue current insulin regimen Consultation Date/Type/Reason Admit Date/Time Apr 24, 2017 at 19:05 Initial Consult Date 05/01/17 Type of Consultation: Endocrine Referring Provider: NANY PRIEST NP 24 HR Interval Summary Free Text/Dictation No new issues Exam/Review of Systems Vital Signs Vitals Vital Signs Date Time Temp Pulse Resp B/P Pulse Ox O2 Delivery O2 Flow Rate FiO2 05/05/17 15:25 97.6 78 17 151/67 93 05/05/17 08:32 Nasal Cannula 2.0 05/05/17 08:12 21 Intake and Output 05/04/17 05/04/17 05/05/17 15:00 23:00 07:00 Intake Total 290 ml 200 ml Output Total 10 ml Balance 280 ml 200 ml Results POC glucose reviewed Result Diagram: 05/05/17 0549 05/05/17 0549 Results 24 hrs Laboratory Tests Test 05/04/17 17:07 05/04/17 20:06 05/05/17 05:49 05/05/17 06:28 Bedside Glucose 141 71 White Blood Count 12.3 H Red Blood Count 2.90 #L Hemoglobin 9.2 L Hematocrit 26.3 #L Mean Corpuscular Volume 90.7 Mean Corpuscular Hemoglobin 31.7 Mean Corpuscular Hemoglobin Concent 35.0 Red Cell Distribution Width 17.6 #H Platelet Count 198 # Mean Platelet Volume Neutrophils % 80.8 H Lymphocytes % 9.7 L Monocytes % 6.4 Eosinophils % 1.1 Basophils % 0.2 Nucleated Red Blood Cells % 0.7 H Neutrophils # 10.0 H Lymphocytes # 1.2 Monocytes # 0.8 Eosinophils # 0.1 Basophils # 0.0 Nucleated Red Blood Cells # 0.1 H Sodium Level 138 Potassium Level 3.7 Chloride Level 100 Carbon Dioxide Level 30 Anion Gap 12 Blood Urea Nitrogen 66 H Creatinine 4.41 H Glucose Level 170 Calcium Level 8.8 Lab Scanned Report BLOOD TRANSFUSION Test 05/05/17 08:06 05/05/17 09:54 05/05/17 12:18 Bedside Glucose 272 H 315 H 168 Medications Medications Current Medications Ondansetron HCl (Zofran Tab) 4 mg Q6H PRN PO NAUSEA AND/OR VOMITING; Start at 23:00 Nitroglycerin (Nitroglycerin (Sl Tab) 0.4 Mg) 1 tab Q5M PRN SL CHEST PAIN; Start 04/24/17 at 23:00 Docusate Sodium (Colace) 100 mg Q12H PRN PO CONSTIPATION; Start 04/24/17 at 23 :00 Bisacodyl (Dulcolax) 5 mg DAILY PRN PO CONSTIPATION; Start 04/24/17 at 23:00 Atorvastatin Calcium (Lipitor) 80 mg QHS PO Last administered on 05/04/17 21: 02; Admin Dose 80 MG; Start 04/25/17 at 21:00 Ergocalciferol (Drisdol) 50,000 unit Mo@09 PO Last administered on 04/29/17 17 :21; Admin Dose 50,000 UNIT; Start 04/24/17 at 23:00 Ferrous Sulfate (Ferrous Sulfate (Ec)) 325 mg DAILY PO Last administered on 08:29; Admin Dose 325 MG; Start 04/25/17 at 09:00 Multivit/Ca Carb/ B Cmplx/FA/Prenat (Isabel-Brenda) 1 tab DAILY PO Last administered on 05/05/17 08:30; Admin Dose 1 TAB; Start 04/25/17 at 09:00 Pantoprazole (Protonix Tab) 40 mg DAILY@06 PO Last administered on 05/05/17 06:26; Admin Dose 40 MG; Start 04/25/17 at 06:00 Guaifenesin/ Dextromethorphan (Mucinex Dm) 1 tab BID PO Last administered on 08:30; Admin Dose 1 TAB; Start 04/25/17 at 03:15 Hydralazine HCl (Apresoline) 10 mg Q4H PRN IV ELEVATED BLOOD PRESSURE Last administered on 05/03/17 01:01; Admin Dose 10 MG; Start 04/25/17 at 03:30 Diagnostic Test (Pha) (Accu-Chek) 1 ea 02 XX Last administered on 05/04/17 02: 00; Admin Dose 1 EA; Start 04/26/17 at 02:00 Citric Acid/ Sodium Citrate (Bicitra) 30 ml TID PO Last administered on 08:29; Admin Dose 30 ML; Start 04/25/17 at 13:00 Aspirin (Aspirin) 81 mg DAILY PO Last administered on 04/30/17 10:05; Admin Dose 81 MG; Start 04/25/17 at 12:00; Status Future Hold Heparin Sodium (Porcine) (Heparin (5000 Units/0.5 ml)) 5,000 unit BID SC Last administered on 05/05/17 08:27; Admin Dose 5,000 UNIT; Start 04/26/17 at 09:00 Miscellaneous Information 1 ea NOTE XX Last administered on 04/30/17 17:45; Admin Dose 1 EA; Start 04/25/17 at 12:00 Glucose (Glutose) 15 gm Q15M PRN PO DECREASED GLUCOSE; Start 04/25/17 at 12:00 Glucose (Glutose) 22.5 gm Q15M PRN PO DECREASED GLUCOSE; Start 04/25/17 at 12: 00 Dextrose (D50w Syringe) 25 ml Q15M PRN IV DECREASED GLUCOSE; Start 04/25/17 at 12:00 Dextrose (D50w Syringe) 50 ml Q15M PRN IV DECREASED GLUCOSE; Start 04/25/17 at 12:00 Glucagon (Glucagen) 1 mg Q15M PRN IM DECREASED GLUCOSE; Start 04/25/17 at 12: 00 Glucose (Glutose) 15 gm Q15M PRN BUCCAL DECREASED GLUCOSE; Start 04/25/17 at 12:00 Furosemide (Lasix) 20 mg BID IV Last administered on 05/05/17 08:36; Admin Dose 20 MG; Start 04/26/17 at 09:00 Fish Oil (Fish Oil) 2,000 mg BID PO Last administered on 05/05/17 08:29; Admin Dose 2,000 MG; Start 04/27/17 at 21:00 EZETIMIBE (Zetia) 10 mg DAILY PO Last administered on 05/05/17 08:29; Admin Dose 10 MG; Start 04/28/17 at 09:00 Morphine Sulfate (morphine) 2 mg Q4H PRN IV Pain Last administered on 10:24; Admin Dose 2 MG; Start 04/28/17 at 09:00 Linagliptin (Tradjenta) 5 mg DAILY PO Last administered on 05/05/17 08:29; Admin Dose 5 MG; Start 04/28/17 at 12:00 Tiotropium [place] (Spiriva) 1 inh DAILY INH Last administered on 05/05/17 08 :29; Admin Dose 1 INH; Start 04/30/17 at 13:30 Salmeterol Xinafoate/ Fluticasone (Advair 250/50 Diskus) 1 inh BID INH Last administered on 05/05/17 08:30; Admin Dose 1 INH; Start 04/30/17 at 21:00 Amlodipine Besylate (Norvasc) 5 mg BID PO Last administered on 05/04/17 21:02 ; Admin Dose 5 MG; Start 05/03/17 at 21:00 Insulin Glargine (Lantus) 35 unit BID SC Last administered on 05/05/17 08:26 ; Admin Dose 35 UNIT; Start 05/03/17 at 21:00 Carvedilol (Coreg) 3.125 mg BID PO Last administered on 05/04/17 21:02; Admin Dose 3.125 MG; Start 05/04/17 at 09:00 VIOLETTE RAMÍREZ MD May 05, 2017 17:09
--- NOTE | 2017-05-05 17:28 | CONS ---
Date/Time of Note Date/Time of Note DATE: 05/05/17 TIME: 17:27 Consult Date/Type/Reason Admit Date/Time Apr 24, 2017 at 19:05 Initial Consult Date 05/01/17 Type of Consultation: Pulm Ordering Provider: NANY PRIEST [employer] Subjective No events overnight. Objective Vital Signs Date Time Temp Pulse Resp B/P Pulse Ox O2 Delivery O2 Flow Rate FiO2 05/05/17 15:25 97.6 78 17 151/67 93 05/05/17 08:32 Nasal Cannula 2.0 05/05/17 08:12 21 Intake and Output 05/04/17 05/04/17 05/05/17 15:00 23:00 07:00 Intake Total 290 ml 200 ml Output Total 10 ml Balance 280 ml 200 ml Exam HEENT: Neck supple; no JVD; no LAD CVS: RRR, S1 and S2 CHEST: Clear ABD: Soft, NT, + BS EXT: No c/c/e Results/Medications Result Diagram: 05/05/17 0549 05/05/17 0549 Results 24 hrs Laboratory Tests Test 05/04/17 20:06 05/05/17 05:49 05/05/17 06:28 05/05/17 08:06 Bedside Glucose 71 272 H White Blood Count 12.3 H Red Blood Count 2.90 #L Hemoglobin 9.2 L Hematocrit 26.3 #L Mean Corpuscular Volume 90.7 Mean Corpuscular Hemoglobin 31.7 Mean Corpuscular Hemoglobin Concent 35.0 Red Cell Distribution Width 17.6 #H Platelet Count 198 # Mean Platelet Volume Neutrophils % 80.8 H Lymphocytes % 9.7 L Monocytes % 6.4 Eosinophils % 1.1 Basophils % 0.2 Nucleated Red Blood Cells % 0.7 H Neutrophils # 10.0 H Lymphocytes # 1.2 Monocytes # 0.8 Eosinophils # 0.1 Basophils # 0.0 Nucleated Red Blood Cells # 0.1 H Sodium Level 138 Potassium Level 3.7 Chloride Level 100 Carbon Dioxide Level 30 Anion Gap 12 Blood Urea Nitrogen 66 H Creatinine 4.41 H Glucose Level 170 Calcium Level 8.8 Lab Scanned Report BLOOD TRANSFUSION Test 05/05/17 09:54 05/05/17 12:18 Bedside Glucose 315 H 168 Medications Current Medications Ondansetron HCl (Zofran Tab) 4 mg Q6H PRN PO NAUSEA AND/OR VOMITING; Start at 23:00 Nitroglycerin (Nitroglycerin (Sl Tab) 0.4 Mg) 1 tab Q5M PRN SL CHEST PAIN; Start 04/24/17 at 23:00 Docusate Sodium (Colace) 100 mg Q12H PRN PO CONSTIPATION; Start 04/24/17 at 23 :00 Bisacodyl (Dulcolax) 5 mg DAILY PRN PO CONSTIPATION; Start 04/24/17 at 23:00 Atorvastatin Calcium (Lipitor) 80 mg QHS PO Last administered on 05/04/17 21: 02; Admin Dose 80 MG; Start 04/25/17 at 21:00 Ergocalciferol (Drisdol) 50,000 unit Mo@09 PO Last administered on 04/29/17 17 :21; Admin Dose 50,000 UNIT; Start 04/24/17 at 23:00 Ferrous Sulfate (Ferrous Sulfate (Ec)) 325 mg DAILY PO Last administered on 08:29; Admin Dose 325 MG; Start 04/25/17 at 09:00 Multivit/Ca Carb/ B Cmplx/FA/Prenat (Isabel-Brenda) 1 tab DAILY PO Last administered on 05/05/17 08:30; Admin Dose 1 TAB; Start 04/25/17 at 09:00 Pantoprazole (Protonix Tab) 40 mg DAILY@06 PO Last administered on 05/05/17 06:26; Admin Dose 40 MG; Start 04/25/17 at 06:00 Guaifenesin/ Dextromethorphan (Mucinex Dm) 1 tab BID PO Last administered on 08:30; Admin Dose 1 TAB; Start 04/25/17 at 03:15 Hydralazine HCl (Apresoline) 10 mg Q4H PRN IV ELEVATED BLOOD PRESSURE Last administered on 05/03/17 01:01; Admin Dose 10 MG; Start 04/25/17 at 03:30 Diagnostic Test (Pha) (Accu-Chek) 1 ea 02 XX Last administered on 05/04/17 02: 00; Admin Dose 1 EA; Start 04/26/17 at 02:00 Citric Acid/ Sodium Citrate (Bicitra) 30 ml TID PO Last administered on 08:29; Admin Dose 30 ML; Start 04/25/17 at 13:00 Aspirin (Aspirin) 81 mg DAILY PO Last administered on 04/30/17 10:05; Admin Dose 81 MG; Start 04/25/17 at 12:00; Status Future Hold Heparin Sodium (Porcine) (Heparin (5000 Units/0.5 ml)) 5,000 unit BID SC Last administered on 05/05/17 08:27; Admin Dose 5,000 UNIT; Start 04/26/17 at 09:00 Miscellaneous Information 1 ea NOTE XX Last administered on 04/30/17 17:45; Admin Dose 1 EA; Start 04/25/17 at 12:00 Glucose (Glutose) 15 gm Q15M PRN PO DECREASED GLUCOSE; Start 04/25/17 at 12:00 Glucose (Glutose) 22.5 gm Q15M PRN PO DECREASED GLUCOSE; Start 04/25/17 at 12: 00 Dextrose (D50w Syringe) 25 ml Q15M PRN IV DECREASED GLUCOSE; Start 04/25/17 at 12:00 Dextrose (D50w Syringe) 50 ml Q15M PRN IV DECREASED GLUCOSE; Start 04/25/17 at 12:00 Glucagon (Glucagen) 1 mg Q15M PRN IM DECREASED GLUCOSE; Start 04/25/17 at 12: 00 Glucose (Glutose) 15 gm Q15M PRN BUCCAL DECREASED GLUCOSE; Start 04/25/17 at 12:00 Furosemide (Lasix) 20 mg BID IV Last administered on 05/05/17 08:36; Admin Dose 20 MG; Start 04/26/17 at 09:00 Fish Oil (Fish Oil) 2,000 mg BID PO Last administered on 05/05/17 08:29; Admin Dose 2,000 MG; Start 04/27/17 at 21:00 EZETIMIBE (Zetia) 10 mg DAILY PO Last administered on 05/05/17 08:29; Admin Dose 10 MG; Start 04/28/17 at 09:00 Morphine Sulfate (morphine) 2 mg Q4H PRN IV Pain Last administered on 10:24; Admin Dose 2 MG; Start 04/28/17 at 09:00 Linagliptin (Tradjenta) 5 mg DAILY PO Last administered on 05/05/17 08:29; Admin Dose 5 MG; Start 04/28/17 at 12:00 Tiotropium [place] (Spiriva) 1 inh DAILY INH Last administered on 05/05/17 08 :29; Admin Dose 1 INH; Start 04/30/17 at 13:30 Salmeterol Xinafoate/ Fluticasone (Advair 250/50 Diskus) 1 inh BID INH Last administered on 05/05/17 08:30; Admin Dose 1 INH; Start 04/30/17 at 21:00 Amlodipine Besylate (Norvasc) 5 mg BID PO Last administered on 05/04/17 21:02 ; Admin Dose 5 MG; Start 05/03/17 at 21:00 Insulin Glargine (Lantus) 35 unit BID SC Last administered on 05/05/17 08:26 ; Admin Dose 35 UNIT; Start 05/03/17 at 21:00 Carvedilol (Coreg) 3.125 mg BID PO Last administered on 05/04/17 21:02; Admin Dose 3.125 MG; Start 05/04/17 at 09:00 Assessment/Plan Additional Assessment/Plan IMP: 1. Pulmonary edema with COPD exacerbation with interval improvement. 2. End-stage renal disease, on hemodialysis. 3. Anemia. Questionable GI bleed with drop in hemoglobin noted. 4. Diabetes. With hyperglycemia secondary to systemic steroids. 5. History of DVT. 6. History of hypertension. RECS: 1. HD/UF 2. Follow K+ 3. Am labs 4. DM control as per JAYY Us MD May 05, 2017 17:28
--- NOTE | 2017-05-05 17:47 | CONS ---
Date/Time of Note Date/Time of Note DATE: 05/05/17 TIME: 17:45 Assessment/Plan Assessment/Plan Additional Assessment/Plan Volume overload Acute kidney injury with history of CKD, started on hemodialysis Acute decompensated diastolic congestive heart failure Diabetes CAD with history of PCI over 10 years ago Hypertension Dyslipidemia History of DVT, previously on anticoagulation Acute blood loss anemia status post blood transfusion Intermittent Mobitz type I, asymptomatic - Aspirin and anticoagulation have been stopped secondary to recurrent anemia requiring blood transfusion. Fluid management via hemodialysis as per our nephrology colleagues. Continue on telemetry monitoring. Continue statin therapy. Consultation Date/Type/Reason Admit Date/Time Apr 24, 2017 at 19:05 Initial Consult Date 04/27/17 Type of Consultation: cv Referring Provider: NANY PRIEST FENCE [employer]ORER 24 HR Interval Summary Free Text/Dictation Patient seen and examined. Denies shortness of breath Exam/Review of Systems Vital Signs Vitals Vital Signs Date Time Temp Pulse Resp B/P Pulse Ox O2 Delivery O2 Flow Rate FiO2 05/05/17 15:25 97.6 78 17 151/67 93 05/05/17 08:32 Nasal Cannula 2.0 05/05/17 08:12 21 Intake and Output 05/04/17 05/04/17 05/05/17 14:59 22:59 06:59 Intake Total 290 ml 200 ml Output Total 10 ml Balance 280 ml 200 ml Exam Awake, following commands, family at bedside Head: normocephalic Respiratory: other (Coarse breath sounds bilaterally, no wheezing) Cardiovascular: other (S1-S2 heard), regular rate and rhythm (Occasional irregularities) Gastrointestinal: bowel sounds, non-tender, soft Extremities: edema Results Result Diagram: 05/05/17 0549 05/05/17 0549 Results 24 hrs Laboratory Tests Test 05/04/17 20:06 05/05/17 05:49 05/05/17 06:28 05/05/17 08:06 Bedside Glucose 71 272 H White Blood Count 12.3 H Red Blood Count 2.90 #L Hemoglobin 9.2 L Hematocrit 26.3 #L Mean Corpuscular Volume 90.7 Mean Corpuscular Hemoglobin 31.7 Mean Corpuscular Hemoglobin Concent 35.0 Red Cell Distribution Width 17.6 #H Platelet Count 198 # Mean Platelet Volume Neutrophils % 80.8 H Lymphocytes % 9.7 L Monocytes % 6.4 Eosinophils % 1.1 Basophils % 0.2 Nucleated Red Blood Cells % 0.7 H Neutrophils # 10.0 H Lymphocytes # 1.2 Monocytes # 0.8 Eosinophils # 0.1 Basophils # 0.0 Nucleated Red Blood Cells # 0.1 H Sodium Level 138 Potassium Level 3.7 Chloride Level 100 Carbon Dioxide Level 30 Anion Gap 12 Blood Urea Nitrogen 66 H Creatinine 4.41 H Glucose Level 170 Calcium Level 8.8 Lab Scanned Report BLOOD TRANSFUSION Test 05/05/17 09:54 05/05/17 12:18 Bedside Glucose 315 H 168 Medications Medications Current Medications Ondansetron HCl (Zofran Tab) 4 mg Q6H PRN PO NAUSEA AND/OR VOMITING; Start at 23:00 Nitroglycerin (Nitroglycerin (Sl Tab) 0.4 Mg) 1 tab Q5M PRN SL CHEST PAIN; Start 04/24/17 at 23:00 Docusate Sodium (Colace) 100 mg Q12H PRN PO CONSTIPATION; Start 04/24/17 at 23 :00 Bisacodyl (Dulcolax) 5 mg DAILY PRN PO CONSTIPATION; Start 04/24/17 at 23:00 Atorvastatin Calcium (Lipitor) 80 mg QHS PO Last administered on 05/04/17 21: 02; Admin Dose 80 MG; Start 04/25/17 at 21:00 Ergocalciferol (Drisdol) 50,000 unit Mo@09 PO Last administered on 04/29/17 17 :21; Admin Dose 50,000 UNIT; Start 04/24/17 at 23:00 Ferrous Sulfate (Ferrous Sulfate (Ec)) 325 mg DAILY PO Last administered on 08:29; Admin Dose 325 MG; Start 04/25/17 at 09:00 Multivit/Ca Carb/ B Cmplx/FA/Prenat (Isabel-Brenda) 1 tab DAILY PO Last administered on 05/05/17 08:30; Admin Dose 1 TAB; Start 04/25/17 at 09:00 Pantoprazole (Protonix Tab) 40 mg DAILY@06 PO Last administered on 05/05/17 06:26; Admin Dose 40 MG; Start 04/25/17 at 06:00 Guaifenesin/ Dextromethorphan (Mucinex Dm) 1 tab BID PO Last administered on 08:30; Admin Dose 1 TAB; Start 04/25/17 at 03:15 Hydralazine HCl (Apresoline) 10 mg Q4H PRN IV ELEVATED BLOOD PRESSURE Last administered on 05/03/17 01:01; Admin Dose 10 MG; Start 04/25/17 at 03:30 Diagnostic Test (Pha) (Accu-Chek) 1 ea 02 XX Last administered on 05/04/17 02: 00; Admin Dose 1 EA; Start 04/26/17 at 02:00 Citric Acid/ Sodium Citrate (Bicitra) 30 ml TID PO Last administered on 08:29; Admin Dose 30 ML; Start 04/25/17 at 13:00 Aspirin (Aspirin) 81 mg DAILY PO Last administered on 04/30/17 10:05; Admin Dose 81 MG; Start 04/25/17 at 12:00; Status Future Hold Heparin Sodium (Porcine) (Heparin (5000 Units/0.5 ml)) 5,000 unit BID SC Last administered on 05/05/17 08:27; Admin Dose 5,000 UNIT; Start 04/26/17 at 09:00 Miscellaneous Information 1 ea NOTE XX Last administered on 04/30/17 17:45; Admin Dose 1 EA; Start 04/25/17 at 12:00 Glucose (Glutose) 15 gm Q15M PRN PO DECREASED GLUCOSE; Start 04/25/17 at 12:00 Glucose (Glutose) 22.5 gm Q15M PRN PO DECREASED GLUCOSE; Start 04/25/17 at 12: 00 Dextrose (D50w Syringe) 25 ml Q15M PRN IV DECREASED GLUCOSE; Start 04/25/17 at 12:00 Dextrose (D50w Syringe) 50 ml Q15M PRN IV DECREASED GLUCOSE; Start 04/25/17 at 12:00 Glucagon (Glucagen) 1 mg Q15M PRN IM DECREASED GLUCOSE; Start 04/25/17 at 12: 00 Glucose (Glutose) 15 gm Q15M PRN BUCCAL DECREASED GLUCOSE; Start 04/25/17 at 12:00 Furosemide (Lasix) 20 mg BID IV Last administered on 05/05/17 08:36; Admin Dose 20 MG; Start 04/26/17 at 09:00 Fish Oil (Fish Oil) 2,000 mg BID PO Last administered on 05/05/17 08:29; Admin Dose 2,000 MG; Start 04/27/17 at 21:00 EZETIMIBE (Zetia) 10 mg DAILY PO Last administered on 05/05/17 08:29; Admin Dose 10 MG; Start 04/28/17 at 09:00 Morphine Sulfate (morphine) 2 mg Q4H PRN IV Pain Last administered on 10:24; Admin Dose 2 MG; Start 04/28/17 at 09:00 Linagliptin (Tradjenta) 5 mg DAILY PO Last administered on 05/05/17 08:29; Admin Dose 5 MG; Start 04/28/17 at 12:00 Tiotropium [place] (Spiriva) 1 inh DAILY INH Last administered on 05/05/17 08 :29; Admin Dose 1 INH; Start 04/30/17 at 13:30 Salmeterol Xinafoate/ Fluticasone (Advair 250/50 Diskus) 1 inh BID INH Last administered on 05/05/17 08:30; Admin Dose 1 INH; Start 04/30/17 at 21:00 Amlodipine Besylate (Norvasc) 5 mg BID PO Last administered on 05/04/17 21:02 ; Admin Dose 5 MG; Start 05/03/17 at 21:00 Insulin Glargine (Lantus) 35 unit BID SC Last administered on 05/05/17 08:26 ; Admin Dose 35 UNIT; Start 05/03/17 at 21:00 Carvedilol (Coreg) 3.125 mg BID PO Last administered on 05/04/17 21:02; Admin Dose 3.125 MG; Start 05/04/17 at 09:00 Dell De La Torre DO May 05, 2017 17:47
[2017-05-05] MEDS: ATORVASTATIN 80 MG TAB PO SCH (21:01)
[2017-05-06] VITALS (13 sets, daily range): BP systolic 131–157; BP diastolic 56–74; PULSE 60–81; RESP 19–21
[2017-05-06] MEDS: FUROSEMIDE 20 MG INJ IV SCH ×3 (00:23→21:32)
[2017-05-06] MEDS: ALBUTEROL/IPRATROPIUM (NEB) 3 ML AMP HHN SCH ×6 (00:31→20:02)
[2017-05-06] MEDS: ACCU-CHEK XX SCH (01:53)
[2017-05-06] MEDS: PANTOPRAZOLE (EC) 40 MG TAB PO SCH (05:52)
[2017-05-06] MEDS: INSULIN ASPART [NOVOLOG] 3 ML PEN SC SCH ×7 (07:41→21:00)
--- NOTE | 2017-05-06 08:40 | PN ---
Date/Time of Note Date/Time of Note DATE: 05/06/17 TIME: 08:37 Assessment/Plan Lines/Catheters IV Catheter Type (from [facility]): PERMACATH [place] in Place (from [facility]): No Assessment/Plan Chief Complaint/Hosp Course -Acute on chronic kidney disease: It seems the patient's renal failure has progressed to possibly end-stage renal, in which the patient requires permanent hemodialysis. As our nephrology colleagues are evaluating the patient at the moment, the patient will require hemodialysis and will require catheter placement. -S/P right CFV Madi catheter -S/P Right IJ perm catheter -Will await placement of a new fistula until cleared from GI standpoint as he would require intraop heparin -Patient has multiple access options when medically optimized -Optimize vascular status (BP meds, diet, nutrition, exercise, sugar control, antiplatelets). -Bilateral lower extremity atherosclerosis: The patient has no significant ulcerations or gangrene for now. Will plan to follow with the patient's vascular surveillance as an outpatient. -Discussed findings, plan and management with the patient and the family at the bedside and they understand. -Thank you for allowing us to partake in the care of your patient. Please call with any questions. Problems: Subjective 24 Hr Interval Summary no new vascular events overnight Exam/Review of Systems Vital Signs Vitals Vital Signs Date Time Temp Pulse Resp B/P Pulse Ox O2 Delivery O2 Flow Rate FiO2 05/06/17 08:12 72 05/06/17 07:31 97.8 19 132/56 94 05/06/17 04:52 21 05/05/17 08:32 Nasal Cannula 2.0 Intake and Output 05/05/17 05/05/17 05/06/17 15:00 23:00 07:00 Intake Total 500 ml 700 ml 200 ml Output Total 2000 ml Balance -1500 ml 700 ml 200 ml Exam Free Text/Dictation GENERAL: Alert and oriented x3 PULMONARY: Bilateral crackles at the bases. Catheter intact and functional CARDIOVASCULAR: S1, S2 present. ABDOMEN: Soft, nontender, nondistended. Bowel sounds positive. Truncal obesity. EXTREMITIES: Right lower extremity palpable femoral pulse, nonpalpable pedal pulse. Motor and sensory intact. Capillary refill 3 seconds. Left lower extremity: Palpable femoral pulse, nonpalpable pedal pulse. Motor and sensory intact. Capillary refill 3 seconds. Results Result Diagram: 05/05/17 0549 05/05/17 0549 VANIA PEREYRA MD May 06, 2017 08:40
[2017-05-06] MEDS: INSULIN GLARGINE [LANtus] 3 ML PEN SC SCH ×2 (09:00→21:37)
[2017-05-06] MEDS: AMLODIPINE 5 MG TAB PO SCH ×2 (09:03→21:32)
[2017-05-06] MEDS: MULTIVIT/CA CARB/B CMPLX/FA TAB PO SCH (09:03)
[2017-05-06] MEDS: EZETIMIBE 10 MG TAB PO SCH (09:03)
[2017-05-06] MEDS: FISH OIL 1,000 MG CAP PO SCH ×2 (09:03→21:47)
[2017-05-06] MEDS: CITRIC ACID/SODIUM CITRATE 15 ML CUP PO SCH ×3 (09:03→21:31)
[2017-05-06] MEDS: FERROUS SULFATE (EC) 325 MG TAB PO SCH (09:03)
[2017-05-06] MEDS: GUAIFENESIN/DM (SR) TAB PO SCH ×2 (09:04→21:00)
[2017-05-06] MEDS: SALMETEROL/FLUTICASONE 250/50 INHA INH SCH ×2 (09:04→21:33)
[2017-05-06] MEDS: LINAGLIPTIN 5 MG TABLET PO SCH (09:04)
[2017-05-06] MEDS: TIOTROPIUM 18 MCG CAPSULE INHA DEV INH SCH (09:05)
[2017-05-06] MEDS: HEPARIN 5,000 UNIT/0.5 ML VIAL SC SCH ×2 (09:12→21:44)
[2017-05-06] MEDS: ERGOCALCIFEROL 50,000 UNIT CAP PO SCH (09:13)
[2017-05-06] MEDS: BUDESONIDE (NEB) 0.5MG/2ML AMP HHN SCH ×2 (09:47→20:02)
--- NOTE | 2017-05-06 11:12 | PN ---
Date/Time of Note Date/Time of Note DATE: 05/06/17 TIME: 11:08 Assessment/Plan VTE Prophylaxis VTE Prophylaxis Intervention: SCD's Lines/Catheters IV Catheter Type (from [facility]): PERMACATH Urinary Cath still in place: No Assessment/Plan Chief Complaint/Hosp Course Chief Complaint/Hosp Course Assessment: Anemia rule out GI bleed EGD 05/03/17 Impression: Moderate distal esophagitis. Post distal gastrectomy Billroth II anastomosis. Moderate bile reflux gastritis. Rule out H. pylori infection. Biopsies obtained Normal afferent and efferent jejunal mucosa Colonoscopy 05/03/17 Impression: Suboptimal examination due to poor preparation No gross lesions present. Moderate-sized internal hemorrhoids. Volume overload Acute kidney injury with history of CKD, started on hemodialysis Acute decompensated diastolic congestive heart failure Diabetes CAD with history of PCI over 10 years ago Hypertension Dyslipidemia History of DVT, previously on anticoagulation Intermittent Mobitz type I, asymptomatic Plan: H/H stable If no evidence of further bleeding repeat colonoscopy within 6 months to a year is recommended Continue PPI therapy/Carafate Review pathology - Reactive gastropathy with foveolar hyperplasia Negative for intestinal metaplasia, dysplasia, h.pylori, and malignancy Patient seen in collaboration with Subjective: Course reviewed with nursing staff Patient interviewed and examined All labs, imaging and other results reviewed The patient doing well post HD, appears hemodynamically stable, cleared from GI to move forward with fistula placement. PHYSICAL EXAMINATION: GENERAL: Well developed, obese, well nourished, alert & oriented x 3, in no acute distress SKIN: No lesions, pale, no stigmata chronic liver disease, no evidence of bleeding diathesis, s/p Madi catheter placement-femoral catheter in place LYMPHATIC: No palpable lymphadenopathy. HEAD: Normocephalic, atraumatic, no tenderness. EYES: Pupils equal reactive to light and accommodation, full extraocular movements, sclera clear, non-icteric, no discharge. EARS/NOSE AND THROAT: Ears normal, nose normal, oropharynx normal, oral membranes well hydrated without lesions. NECK: Supple, no masses, thyroid normal, CHEST: Inspection within normal limits. CARDIOVASCULAR: Heart: Regular rate at this time RESPIRATORY: Lungs clear to auscultation and percussion, no wheezing, no rubs GASTROINTESTINAL AND LIVER: Abdomen: Soft, obese, non tenderness, non-distended , no hernias, no masses, no organomegaly, no ascites, no guarding, no rebound tenderness, normoactive bowel sounds. Rectal: Deferred. GENITOURINARY: Male genitalia within normal limits. EXTREMITIES: No cyanosis, clubbing or edema. Problems: Exam/Review of Systems Vital Signs Vitals Vital Signs Date Time Temp Pulse Resp B/P Pulse Ox O2 Delivery O2 Flow Rate FiO2 05/06/17 11:07 97.6 69 21 155/68 98 05/06/17 09:47 21 05/05/17 08:32 Nasal Cannula 2.0 Intake and Output 05/05/17 05/05/17 05/06/17 15:00 23:00 07:00 Intake Total 500 ml 700 ml 200 ml Output Total 2000 ml Balance -1500 ml 700 ml 200 ml Results Result Diagram: 05/05/17 0549 05/05/17 0549 Results 24 hrs Laboratory Tests Test 05/05/17 12:18 05/05/17 17:37 05/05/17 17:38 05/05/17 17:48 Bedside Glucose 168 32 *L 34 *L 53 L Test 05/05/17 17:57 05/05/17 18:09 05/05/17 20:59 05/06/17 07:26 Bedside Glucose 183 133 187 69 L Test 05/06/17 07:27 Bedside Glucose 73 Medications Medications Current Medications Ondansetron HCl (Zofran Tab) 4 mg Q6H PRN PO NAUSEA AND/OR VOMITING; Start at 23:00 Nitroglycerin (Nitroglycerin (Sl Tab) 0.4 Mg) 1 tab Q5M PRN SL CHEST PAIN; Start 04/24/17 at 23:00 Docusate Sodium (Colace) 100 mg Q12H PRN PO CONSTIPATION; Start 04/24/17 at 23 :00 Bisacodyl (Dulcolax) 5 mg DAILY PRN PO CONSTIPATION; Start 04/24/17 at 23:00 Atorvastatin Calcium (Lipitor) 80 mg QHS PO Last administered on 05/05/17 21: 01; Admin Dose 80 MG; Start 04/25/17 at 21:00 Ergocalciferol (Drisdol) 50,000 unit Mo@09 PO Last administered on 05/06/17 09:13; Admin Dose 50,000 UNIT; Start 04/24/17 at 23:00 Ferrous Sulfate (Ferrous Sulfate (Ec)) 325 mg DAILY PO Last administered on 09:03; Admin Dose 325 MG; Start 04/25/17 at 09:00 Multivit/Ca Carb/ B Cmplx/FA/Prenat (Isabel-Brenda) 1 tab DAILY PO Last administered on 05/06/17 09:03; Admin Dose 1 TAB; Start 04/25/17 at 09:00 Pantoprazole (Protonix Tab) 40 mg DAILY@06 PO Last administered on 05/06/17 05:52; Admin Dose 40 MG; Start 04/25/17 at 06:00 Guaifenesin/ Dextromethorphan (Mucinex Dm) 1 tab BID PO Last administered on 09:04; Admin Dose 1 TAB; Start 04/25/17 at 03:15 Hydralazine HCl (Apresoline) 10 mg Q4H PRN IV ELEVATED BLOOD PRESSURE Last administered on 05/03/17 01:01; Admin Dose 10 MG; Start 04/25/17 at 03:30 Diagnostic Test (Pha) (Accu-Chek) 1 ea 02 XX Last administered on 05/04/17 02: 00; Admin Dose 1 EA; Start 04/26/17 at 02:00 Citric Acid/ Sodium Citrate (Bicitra) 30 ml TID PO Last administered on 09:03; Admin Dose 30 ML; Start 04/25/17 at 13:00 Aspirin (Aspirin) 81 mg DAILY PO Last administered on 04/30/17 10:05; Admin Dose 81 MG; Start 04/25/17 at 12:00; Status Future Hold Heparin Sodium (Porcine) (Heparin (5000 Units/0.5 ml)) 5,000 unit BID SC Last administered on 05/06/17 09:12; Admin Dose 5,000 UNIT; Start 04/26/17 at 09:00 Miscellaneous Information 1 ea NOTE XX Last administered on 04/30/17 17:45; Admin Dose 1 EA; Start 04/25/17 at 12:00 Glucose (Glutose) 15 gm Q15M PRN PO DECREASED GLUCOSE; Start 04/25/17 at 12:00 Glucose (Glutose) 22.5 gm Q15M PRN PO DECREASED GLUCOSE; Start 04/25/17 at 12: 00 Dextrose (D50w Syringe) 25 ml Q15M PRN IV DECREASED GLUCOSE; Start 04/25/17 at 12:00 Dextrose (D50w Syringe) 50 ml Q15M PRN IV DECREASED GLUCOSE; Start 04/25/17 at 12:00 Glucagon (Glucagen) 1 mg Q15M PRN IM DECREASED GLUCOSE; Start 04/25/17 at 12: 00 Glucose (Glutose) 15 gm Q15M PRN BUCCAL DECREASED GLUCOSE; Start 04/25/17 at 12:00 Furosemide (Lasix) 20 mg BID IV Last administered on 05/06/17 09:04; Admin Dose 20 MG; Start 04/26/17 at 09:00 Fish Oil (Fish Oil) 2,000 mg BID PO Last administered on 05/06/17 09:03; Admin Dose 2,000 MG; Start 04/27/17 at 21:00 EZETIMIBE (Zetia) 10 mg DAILY PO Last administered on 05/06/17 09:03; Admin Dose 10 MG; Start 04/28/17 at 09:00 Morphine Sulfate (morphine) 2 mg Q4H PRN IV Pain Last administered on 10:24; Admin Dose 2 MG; Start 04/28/17 at 09:00 Linagliptin (Tradjenta) 5 mg DAILY PO Last administered on 05/06/17 09:04; Admin Dose 5 MG; Start 04/28/17 at 12:00 Tiotropium [place] (Spiriva) 1 inh DAILY INH Last administered on 05/06/17 09 :05; Admin Dose 1 INH; Start 04/30/17 at 13:30 Salmeterol Xinafoate/ Fluticasone (Advair 250/50 Diskus) 1 inh BID INH Last administered on 05/06/17 09:04; Admin Dose 1 INH; Start 04/30/17 at 21:00 Amlodipine Besylate (Norvasc) 5 mg BID PO Last administered on 05/06/17 09:03 ; Admin Dose 5 MG; Start 05/03/17 at 21:00 Insulin Glargine (Lantus) 35 unit BID SC Last administered on 05/05/17 21:34 ; Admin Dose 35 UNIT; Start 05/03/17 at 21:00 Carvedilol (Coreg) 3.125 mg BID PO Last administered on 05/06/17 09:03; Admin Dose 3.125 MG; Start 05/04/17 at 09:00 HERRERA WORRELL May 06, 2017 11:12
--- NOTE | 2017-05-06 11:19 | CONS ---
Date/Time of Note Date/Time of Note DATE: 05/06/17 TIME: 11:18 Consult Date/Type/Reason Admit Date/Time Apr 24, 2017 at 19:05 Initial Consult Date 05/01/17 Type of Consultation: Pulmonary Ordering Provider: NANY [employer]IEST [employer] BUILDER Subjective Patient remains stable this morning no new events. No respiratory distress. Objective Vital Signs Date Time Temp Pulse Resp B/P Pulse Ox O2 Delivery O2 Flow Rate FiO2 05/06/17 11:07 97.6 69 21 155/68 98 05/06/17 09:47 21 05/05/17 08:32 Nasal Cannula 2.0 Intake and Output 05/05/17 05/05/17 05/06/17 15:00 23:00 07:00 Intake Total 500 ml 700 ml 200 ml Output Total 2000 ml Balance -1500 ml 700 ml 200 ml Exam GENERAL: Elderly [place] gentleman comfortable at rest no acute distress VITAL SIGNS: per chart NECK: Supple. No JVD or lymphadenopathy. CARDIAC EXAM: S1, S2. No added sounds or murmurs. CHEST: clear bilaterally, No added sounds, rales or wheezes ABDOMEN: Soft, nontender. No guarding or rebound. EXTREMITIES: No cyanosis, clubbing or edema. NEUROLOGIC: Generalized weakness. No focal deficits. Results/Medications Result Diagram: 05/05/17 0549 05/05/17 0549 Results 24 hrs Laboratory Tests Test 05/05/17 12:18 05/05/17 17:37 05/05/17 17:38 05/05/17 17:48 Bedside Glucose 168 32 *L 34 *L 53 L Test 05/05/17 17:57 05/05/17 18:09 05/05/17 20:59 05/06/17 07:26 Bedside Glucose 183 133 187 69 L Test 05/06/17 07:27 Bedside Glucose 73 Medications Current Medications Ondansetron HCl (Zofran Tab) 4 mg Q6H PRN PO NAUSEA AND/OR VOMITING; Start at 23:00 Nitroglycerin (Nitroglycerin (Sl Tab) 0.4 Mg) 1 tab Q5M PRN SL CHEST PAIN; Start 04/24/17 at 23:00 Docusate Sodium (Colace) 100 mg Q12H PRN PO CONSTIPATION; Start 04/24/17 at 23 :00 Bisacodyl (Dulcolax) 5 mg DAILY PRN PO CONSTIPATION; Start 04/24/17 at 23:00 Atorvastatin Calcium (Lipitor) 80 mg QHS PO Last administered on 05/05/17 21: 01; Admin Dose 80 MG; Start 04/25/17 at 21:00 Ergocalciferol (Drisdol) 50,000 unit Mo@09 PO Last administered on 05/06/17 09:13; Admin Dose 50,000 UNIT; Start 04/24/17 at 23:00 Ferrous Sulfate (Ferrous Sulfate (Ec)) 325 mg DAILY PO Last administered on 09:03; Admin Dose 325 MG; Start 04/25/17 at 09:00 Multivit/Ca Carb/ B Cmplx/FA/Prenat (Isabel-Brenda) 1 tab DAILY PO Last administered on 05/06/17 09:03; Admin Dose 1 TAB; Start 04/25/17 at 09:00 Pantoprazole (Protonix Tab) 40 mg DAILY@06 PO Last administered on 05/06/17 05:52; Admin Dose 40 MG; Start 04/25/17 at 06:00 Guaifenesin/ Dextromethorphan (Mucinex Dm) 1 tab BID PO Last administered on 09:04; Admin Dose 1 TAB; Start 04/25/17 at 03:15 Hydralazine HCl (Apresoline) 10 mg Q4H PRN IV ELEVATED BLOOD PRESSURE Last administered on 05/03/17 01:01; Admin Dose 10 MG; Start 04/25/17 at 03:30 Diagnostic Test (Pha) (Accu-Chek) 1 ea 02 XX Last administered on 05/04/17 02: 00; Admin Dose 1 EA; Start 04/26/17 at 02:00 Citric Acid/ Sodium Citrate (Bicitra) 30 ml TID PO Last administered on 09:03; Admin Dose 30 ML; Start 04/25/17 at 13:00 Aspirin (Aspirin) 81 mg DAILY PO Last administered on 04/30/17 10:05; Admin Dose 81 MG; Start 04/25/17 at 12:00; Status Future Hold Heparin Sodium (Porcine) (Heparin (5000 Units/0.5 ml)) 5,000 unit BID SC Last administered on 05/06/17 09:12; Admin Dose 5,000 UNIT; Start 04/26/17 at 09:00 Miscellaneous Information 1 ea NOTE XX Last administered on 04/30/17 17:45; Admin Dose 1 EA; Start 04/25/17 at 12:00 Glucose (Glutose) 15 gm Q15M PRN PO DECREASED GLUCOSE; Start 04/25/17 at 12:00 Glucose (Glutose) 22.5 gm Q15M PRN PO DECREASED GLUCOSE; Start 04/25/17 at 12: 00 Dextrose (D50w Syringe) 25 ml Q15M PRN IV DECREASED GLUCOSE; Start 04/25/17 at 12:00 Dextrose (D50w Syringe) 50 ml Q15M PRN IV DECREASED GLUCOSE; Start 04/25/17 at 12:00 Glucagon (Glucagen) 1 mg Q15M PRN IM DECREASED GLUCOSE; Start 04/25/17 at 12: 00 Glucose (Glutose) 15 gm Q15M PRN BUCCAL DECREASED GLUCOSE; Start 04/25/17 at 12:00 Furosemide (Lasix) 20 mg BID IV Last administered on 05/06/17 09:04; Admin Dose 20 MG; Start 04/26/17 at 09:00 Fish Oil (Fish Oil) 2,000 mg BID PO Last administered on 05/06/17 09:03; Admin Dose 2,000 MG; Start 04/27/17 at 21:00 EZETIMIBE (Zetia) 10 mg DAILY PO Last administered on 05/06/17 09:03; Admin Dose 10 MG; Start 04/28/17 at 09:00 Morphine Sulfate (morphine) 2 mg Q4H PRN IV Pain Last administered on 10:24; Admin Dose 2 MG; Start 04/28/17 at 09:00 Linagliptin (Tradjenta) 5 mg DAILY PO Last administered on 05/06/17 09:04; Admin Dose 5 MG; Start 04/28/17 at 12:00 Tiotropium [place] (Spiriva) 1 inh DAILY INH Last administered on 05/06/17 09 :05; Admin Dose 1 INH; Start 04/30/17 at 13:30 Salmeterol Xinafoate/ Fluticasone (Advair 250/50 Diskus) 1 inh BID INH Last administered on 05/06/17 09:04; Admin Dose 1 INH; Start 04/30/17 at 21:00 Amlodipine Besylate (Norvasc) 5 mg BID PO Last administered on 05/06/17 09:03 ; Admin Dose 5 MG; Start 05/03/17 at 21:00 Insulin Glargine (Lantus) 35 unit BID SC Last administered on 05/05/17 21:34 ; Admin Dose 35 UNIT; Start 05/03/17 at 21:00 Carvedilol (Coreg) 3.125 mg BID PO Last administered on 05/06/17 09:03; Admin Dose 3.125 MG; Start 05/04/17 at 09:00 Assessment/Plan Chief Complaint/Hosp Course IMP: 1. Pulmonary edema with COPD exacerbation with interval improvement. 2. End-stage renal disease, on hemodialysis. 3. Anemia. Questionable GI bleed with drop in hemoglobin noted. 4. Diabetes. With hyperglycemia secondary to systemic steroids. 5. History of DVT. 6. History of hypertension. RECS: 1. HD/UF 2. Follow K+ 3. Am labs 4. DM control as per Jr DICKERSON planning okay from pulmonary standpoint Problems: BROOKE MARIE MD, [facility] May 06, 2017 11:19
--- NOTE | 2017-05-06 12:13 | PN ---
Date/Time of Note Date/Time of Note DATE: 05/06/17 TIME: 12:10 Assessment/Plan VTE Prophylaxis VTE Prophylaxis Intervention: SCD's Lines/Catheters IV [facility]ter Type (from [facility]): PERMACATH Urinary Cath still in place: No Assessment/Plan Chief Complaint/Hosp Course Assessment and plan 1. Acute respiratory failure. Secondary to fluid overload. improved. continue HD. o2 as needed 2. Non-ST elevated myocardial infarction suspect type II event considering underlying worsening renal function. Continue on antiplatelet therapy. [employer] following. Continue recommendations. 3. Gram-positive bacteremia. Suspect contaminant. ID consult is following. Antibiotic regimen per ID consult. improved 4. Acute on chronic CHF with diastolic dysfunction. Continue on cardiovascular medications. Continue dialysis. Improved 5. Pulmonary hypertension. Noted with PA systolic pressure of 44 mmHg. Continue on O2. 6. CAD. Patient is status post PTCA in the past. Continue on antiplatelet therapy. 7. Metabolic acidosis secondary to worsening renal function. Continue on Bicitra per chief steward/stewardess. 8. Dyslipidemia. Continue on statin medication. 9. Diabetes. Continue on insulin regimen. Adjust as needed. 10. Essential hypertension continue antihypertensives and adjust needed. 11. Left popliteal vein DVT. Patient did have prior history of DVT in the lower extremities and was taking Xarelto at home. Discontinued now due to worsening renal function. Follow-up with vascular surgeon noy. 12. Acute on chronic kidney disease. HD per nephrology 13. Hypoglycemia. Noted with episode of hypoglycemia is today with a glucose in the 30s. Follow-up with on air director for regimen adjustment Disposition and plan: Noted to be hypoglycemic yesterday and slightly this morning. Follow-up with on air director for insulin regimen. Anticipate discharge within the next 24 hours if medically stable and cleared by consultants Discussed plan of care with Dr. Jackson Problems: Subjective 24 Hr Interval Summary Free Text/Dictation Comfortable at present. No signs of distress. Exam/Review of Systems Vital Signs Vitals Vital Signs Date Time Temp Pulse Resp B/P Pulse Ox O2 Delivery O2 Flow Rate FiO2 05/06/17 12:05 67 05/06/17 11:07 97.6 21 155/68 98 05/06/17 09:47 21 05/05/17 08:32 Nasal Cannula 2.0 Intake and Output 05/05/17 05/05/17 05/06/17 15:00 23:00 07:00 Intake Total 500 ml 700 ml 200 ml Output Total 2000 ml Balance -1500 ml 700 ml 200 ml Exam Constitutional: alert, oriented Head: normocephalic Eyes: nl conjunctiva Respiratory: no wheezing/rhonchi Cardiovascular: other (regular rate) Gastrointestinal: non-tender, soft Musculoskeletal: swelling (minimal ble ) 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: READING INSTRUCTOR II-XII intact, nl mental status Skin: No rash or lesions Results Result Diagram: 05/05/17 0549 05/05/17 0549 Results 24 hrs Laboratory Tests Test 05/05/17 12:18 05/05/17 17:37 05/05/17 17:38 05/05/17 17:48 Bedside Glucose 168 32 *L 34 *L 53 L Test 05/05/17 17:57 05/05/17 18:09 05/05/17 20:59 05/06/17 07:26 Bedside Glucose 183 133 187 69 L Test 05/06/17 07:27 05/06/17 11:56 Bedside Glucose 73 224 H Medications Medications Current Medications Ondansetron HCl (Zofran Tab) 4 mg Q6H PRN PO NAUSEA AND/OR VOMITING; Start at 23:00 Nitroglycerin (Nitroglycerin (Sl Tab) 0.4 Mg) 1 tab Q5M PRN SL CHEST PAIN; Start 04/24/17 at 23:00 Docusate Sodium (Colace) 100 mg Q12H PRN PO CONSTIPATION; Start 04/24/17 at 23 :00 Bisacodyl (Dulcolax) 5 mg DAILY PRN PO CONSTIPATION; Start 04/24/17 at 23:00 Atorvastatin Calcium (Lipitor) 80 mg QHS PO Last administered on 05/05/17 21: 01; Admin Dose 80 MG; Start 04/25/17 at 21:00 Ergocalciferol (Drisdol) 50,000 unit Mo@09 PO Last administered on 05/06/17 09:13; Admin Dose 50,000 UNIT; Start 04/24/17 at 23:00 Ferrous Sulfate (Ferrous Sulfate (Ec)) 325 mg DAILY PO Last administered on 09:03; Admin Dose 325 MG; Start 04/25/17 at 09:00 Multivit/Ca Carb/ B Cmplx/FA/Prenat (Isabel-Brenda) 1 tab DAILY PO Last administered on 05/06/17 09:03; Admin Dose 1 TAB; Start 04/25/17 at 09:00 Pantoprazole (Protonix Tab) 40 mg DAILY@06 PO Last administered on 05/06/17 05:52; Admin Dose 40 MG; Start 04/25/17 at 06:00 Guaifenesin/ Dextromethorphan (Mucinex Dm) 1 tab BID PO Last administered on 09:04; Admin Dose 1 TAB; Start 04/25/17 at 03:15 Hydralazine HCl (Apresoline) 10 mg Q4H PRN IV ELEVATED BLOOD PRESSURE Last administered on 05/03/17 01:01; Admin Dose 10 MG; Start 04/25/17 at 03:30 Diagnostic Test (Pha) (Accu-Chek) 1 ea 02 XX Last administered on 05/04/17 02: 00; Admin Dose 1 EA; Start 04/26/17 at 02:00 Citric Acid/ Sodium Citrate (Bicitra) 30 ml TID PO Last administered on 12:05; Admin Dose 30 ML; Start 04/25/17 at 13:00 Aspirin (Aspirin) 81 mg DAILY PO Last administered on 04/30/17 10:05; Admin Dose 81 MG; Start 04/25/17 at 12:00; Status Future Hold Heparin Sodium (Porcine) (Heparin (5000 Units/0.5 ml)) 5,000 unit BID SC Last administered on 05/06/17 09:12; Admin Dose 5,000 UNIT; Start 04/26/17 at 09:00 Miscellaneous Information 1 ea NOTE XX Last administered on 04/30/17 17:45; Admin Dose 1 EA; Start 04/25/17 at 12:00 Glucose (Glutose) 15 gm Q15M PRN PO DECREASED GLUCOSE; Start 04/25/17 at 12:00 Glucose (Glutose) 22.5 gm Q15M PRN PO DECREASED GLUCOSE; Start 04/25/17 at 12: 00 Dextrose (D50w Syringe) 25 ml Q15M PRN IV DECREASED GLUCOSE; Start 04/25/17 at 12:00 Dextrose (D50w Syringe) 50 ml Q15M PRN IV DECREASED GLUCOSE; Start 04/25/17 at 12:00 Glucagon (Glucagen) 1 mg Q15M PRN IM DECREASED GLUCOSE; Start 04/25/17 at 12: 00 Glucose (Glutose) 15 gm Q15M PRN BUCCAL DECREASED GLUCOSE; Start 04/25/17 at 12:00 Furosemide (Lasix) 20 mg BID IV Last administered on 05/06/17 09:04; Admin Dose 20 MG; Start 04/26/17 at 09:00 Fish Oil (Fish Oil) 2,000 mg BID PO Last administered on 05/06/17 09:03; Admin Dose 2,000 MG; Start 04/27/17 at 21:00 EZETIMIBE (Zetia) 10 mg DAILY PO Last administered on 05/06/17 09:03; Admin Dose 10 MG; Start 04/28/17 at 09:00 Morphine Sulfate (morphine) 2 mg Q4H PRN IV Pain Last administered on 10:24; Admin Dose 2 MG; Start 04/28/17 at 09:00 Linagliptin (Tradjenta) 5 mg DAILY PO Last administered on 05/06/17 09:04; Admin Dose 5 MG; Start 04/28/17 at 12:00 Tiotropium [place] (Spiriva) 1 inh DAILY INH Last administered on 05/06/17 09 :05; Admin Dose 1 INH; Start 04/30/17 at 13:30 Salmeterol Xinafoate/ Fluticasone (Advair 250/50 Diskus) 1 inh BID INH Last administered on 05/06/17 09:04; Admin Dose 1 INH; Start 04/30/17 at 21:00 Amlodipine Besylate (Norvasc) 5 mg BID PO Last administered on 05/06/17 09:03 ; Admin Dose 5 MG; Start 05/03/17 at 21:00 Insulin Glargine (Lantus) 35 unit BID SC Last administered on 05/05/17 21:34 ; Admin Dose 35 UNIT; Start 05/03/17 at 21:00 Carvedilol (Coreg) 3.125 mg BID PO Last administered on 05/06/17 09:03; Admin Dose 3.125 MG; Start 05/04/17 at 09:00 PERRY JUAREZ May 06, 2017 12:13
--- NOTE | 2017-05-06 12:32 | CONS ---
Date/Time of Note Date/Time of Note DATE: 05/06/17 TIME: 12:30 Assessment/Plan Assessment/Plan Additional Assessment/Plan 1. 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 H/o CKD due to diabetic nehropathy as per pt was stage IV/V with eGFR 15 as outpatient 3. Acute hyperkalemia due to TROY on CKD - resolved after pt gets started on HD 4. Metabolic acidosis due to worsenign renal failure 5. H/ CAD S/p previous coronary angiogram as per patient 6. Hypertension 7. Type II DM 8. Hyperlipidemia 9. Acute NSETMI due to CHF 10. severe anemia despite getting PRBC, concerned abotu GI bleeding, Plan : hepatitis C antibody positive, Hepatitis A antibody positive EGD showed distal esophagitis, S/P HD yesterday, s/p permacath, placement, HD placement confirmed at [facility] [place] [facility] Renal US showed small size kidneys, no hydronephrosis, c/w CKD on Epogen for anemia will follow up Consultation Date/Type/Reason Admit Date/Time Apr 24, 2017 at 19:05 Initial Consult Date 04/25/17 Type of Consultation: nephrology Referring Provider: NANY PRIEST BOOT TURNER Exam/Review of Systems Vital Signs Vitals Vital Signs Date Time Temp Pulse Resp B/P Pulse Ox O2 Delivery O2 Flow Rate FiO2 05/06/17 12:05 67 05/06/17 11:07 97.6 21 155/68 98 05/06/17 09:47 21 05/05/17 08:32 Nasal Cannula 2.0 Intake and Output 05/05/17 05/05/17 05/06/17 14:59 22:59 06:59 Intake Total 500 ml 700 ml 200 ml Output Total 2000 ml Balance -1500 ml 700 ml 200 ml Exam Constitutional: alert Respiratory: clear to auscultation, diminished breath sounds, normal air movement, + right chest permacath Cardiovascular: nl pulses, regular rate and rhythm Gastrointestinal: non-tender, soft Musculoskeletal: muscle weakness, nl extremities to inspection, swelling Extremities: calf tenderness, normal pulses 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: FUNERAL LOCATION MANAGER II-XII intact, nl mental status, nl speech, nl strength Results Result Diagram: 05/05/17 0549 05/05/17 0549 Results 24 hrs Laboratory Tests Test 05/05/17 17:37 05/05/17 17:38 05/05/17 17:48 05/05/17 17:57 Bedside Glucose 32 *L 34 *L 53 L 183 Test 05/05/17 18:09 05/05/17 20:59 05/06/17 07:26 05/06/17 07:27 Bedside Glucose 133 187 69 L 73 Test 05/06/17 11:56 Bedside Glucose 224 H Medications Medications Current Medications Ondansetron HCl (Zofran Tab) 4 mg Q6H PRN PO NAUSEA AND/OR VOMITING; Start at 23:00 Nitroglycerin (Nitroglycerin (Sl Tab) 0.4 Mg) 1 tab Q5M PRN SL CHEST PAIN; Start 04/24/17 at 23:00 Docusate Sodium (Colace) 100 mg Q12H PRN PO CONSTIPATION; Start 04/24/17 at 23 :00 Bisacodyl (Dulcolax) 5 mg DAILY PRN PO CONSTIPATION; Start 04/24/17 at 23:00 Atorvastatin Calcium (Lipitor) 80 mg QHS PO Last administered on 05/05/17 21: 01; Admin Dose 80 MG; Start 04/25/17 at 21:00 Ergocalciferol (Drisdol) 50,000 unit Mo@09 PO Last administered on 05/06/17 09:13; Admin Dose 50,000 UNIT; Start 04/24/17 at 23:00 Ferrous Sulfate (Ferrous Sulfate (Ec)) 325 mg DAILY PO Last administered on 09:03; Admin Dose 325 MG; Start 04/25/17 at 09:00 Multivit/Ca Carb/ B Cmplx/FA/Prenat (Isabel-Brenda) 1 tab DAILY PO Last administered on 05/06/17 09:03; Admin Dose 1 TAB; Start 04/25/17 at 09:00 Pantoprazole (Protonix Tab) 40 mg DAILY@06 PO Last administered on 05/06/17 05:52; Admin Dose 40 MG; Start 04/25/17 at 06:00 Guaifenesin/ Dextromethorphan (Mucinex Dm) 1 tab BID PO Last administered on 09:04; Admin Dose 1 TAB; Start 04/25/17 at 03:15 Hydralazine HCl (Apresoline) 10 mg Q4H PRN IV ELEVATED BLOOD PRESSURE Last administered on 05/03/17 01:01; Admin Dose 10 MG; Start 04/25/17 at 03:30 Diagnostic Test (Pha) (Accu-Chek) 1 ea 02 XX Last administered on 05/04/17 02: 00; Admin Dose 1 EA; Start 04/26/17 at 02:00 Citric Acid/ Sodium Citrate (Bicitra) 30 ml TID PO Last administered on 12:05; Admin Dose 30 ML; Start 04/25/17 at 13:00 Aspirin (Aspirin) 81 mg DAILY PO Last administered on 04/30/17 10:05; Admin Dose 81 MG; Start 04/25/17 at 12:00; Status Future Hold Heparin Sodium (Porcine) (Heparin (5000 Units/0.5 ml)) 5,000 unit BID SC Last administered on 05/06/17 09:12; Admin Dose 5,000 UNIT; Start 04/26/17 at 09:00 Miscellaneous Information 1 ea NOTE XX Last administered on 04/30/17 17:45; Admin Dose 1 EA; Start 04/25/17 at 12:00 Glucose (Glutose) 15 gm Q15M PRN PO DECREASED GLUCOSE; Start 04/25/17 at 12:00 Glucose (Glutose) 22.5 gm Q15M PRN PO DECREASED GLUCOSE; Start 04/25/17 at 12: 00 Dextrose (D50w Syringe) 25 ml Q15M PRN IV DECREASED GLUCOSE; Start 04/25/17 at 12:00 Dextrose (D50w Syringe) 50 ml Q15M PRN IV DECREASED GLUCOSE; Start 04/25/17 at 12:00 Glucagon (Glucagen) 1 mg Q15M PRN IM DECREASED GLUCOSE; Start 04/25/17 at 12: 00 Glucose (Glutose) 15 gm Q15M PRN BUCCAL DECREASED GLUCOSE; Start 04/25/17 at 12:00 Furosemide (Lasix) 20 mg BID IV Last administered on 05/06/17 09:04; Admin Dose 20 MG; Start 04/26/17 at 09:00 Fish Oil (Fish Oil) 2,000 mg BID PO Last administered on 05/06/17 09:03; Admin Dose 2,000 MG; Start 04/27/17 at 21:00 EZETIMIBE (Zetia) 10 mg DAILY PO Last administered on 05/06/17 09:03; Admin Dose 10 MG; Start 04/28/17 at 09:00 Morphine Sulfate (morphine) 2 mg Q4H PRN IV Pain Last administered on 10:24; Admin Dose 2 MG; Start 04/28/17 at 09:00 Linagliptin (Tradjenta) 5 mg DAILY PO Last administered on 05/06/17 09:04; Admin Dose 5 MG; Start 04/28/17 at 12:00 Tiotropium [place] (Spiriva) 1 inh DAILY INH Last administered on 05/06/17 09 :05; Admin Dose 1 INH; Start 04/30/17 at 13:30 Salmeterol Xinafoate/ Fluticasone (Advair 250/50 Diskus) 1 inh BID INH Last administered on 05/06/17 09:04; Admin Dose 1 INH; Start 04/30/17 at 21:00 Amlodipine Besylate (Norvasc) 5 mg BID PO Last administered on 05/06/17 09:03 ; Admin Dose 5 MG; Start 05/03/17 at 21:00 Insulin Glargine (Lantus) 35 unit BID SC Last administered on 05/05/17 21:34 ; Admin Dose 35 UNIT; Start 05/03/17 at 21:00 Carvedilol (Coreg) 3.125 mg BID PO Last administered on 05/06/17 09:03; Admin Dose 3.125 MG; Start 05/04/17 at 09:00 RAQUEL MCDOWELL MD May 06, 2017 12:32
--- NOTE | 2017-05-06 13:31 | CONS ---
Date/Time of Note Date/Time of Note DATE: 05/06/17 TIME: 13:22 Assessment/Plan Assessment/Plan Chief Complaint/Hosp Course Pleasant [place] gentleman with his family present in the room reporting a 30 year history of diabetes mellitus type 2. He had been on oral agent therapy but as his kidneys declined he was transitioned over to a multiple daily injection regimen using Lantus and NovoLog. He intermittently takes full dose Januvia 100 mg despite his renal dysfunction Problems: (1) Diabetes mellitus type 2 in obese Status: Chronic Comment: He is modestly overcontrolled will make a minimal adjustment in insulin. He should remain on the DPP4 drug dosage adjusted for renal dysfunction. Please note given his history of a Billroth II procedure this will affect and adjust oral medication absorption's. (2) End stage renal disease on dialysis due to type 2 diabetes mellitus Status: Chronic Comment: As per nephrology. Arrangements have been made to start outpatient hemodialysis. Please note we can look at changing his diabetic regimen around after he is stable on dialysis. (3) COPD (chronic obstructive pulmonary disease) Status: Chronic Comment: Improved control using appropriate medications Qualifiers: COPD type: emphysema Emphysema type: unspecified Qualified Code: J43.9 - Pulmonary emphysema, unspecified emphysema type (4) Diastolic dysfunction Status: Chronic Comment: Noted and stable, please note aortic sclerosis (5) Essential hypertension Status: Chronic Comment: Noted and stable, please note aortic sclerosis (6) Hyperuricemia Status: Chronic Comment: Noted and stable on treatment. (7) Hepatitis C antibody positive in blood Status: Chronic Comment: This can be managed as an outpatient once he is stable on dialysis. He would be an appropriate candidate for treatment (8) History of Billroth II operation Status: Chronic Comment: Noted. This will have an effect on the oral absorption/action of some medications especially phosphate binders. (9) Gastroesophageal reflux disease Status: Chronic Comment: Noted. Qualifiers: Esophagitis presence: without esophagitis Qualified Code: K21.9 - Gastroesophageal reflux disease without esophagitis (10) Normocytic anemia Status: Acute Comment: I am in agreement with nephrology about the usage of Epogen at dialysis. Consultation Date/Type/Reason Admit Date/Time Apr 24, 2017 at 19:05 Initial Consult Date 04/27/17 Type of Consultation: Endocrinology Reason for Consultation Diabetes mellitus type 2 on multiple daily injection regimen with complications of end-stage renal disease etc. Referring Provider: NANY PRIEST VISION TEACHER 24 HR Interval Summary Free Text/Dictation Patient had hypoglycemia yesterday and somewhat skittish about taking insulin. Constitutional: no complaints Exam/Review of Systems Vital Signs Vitals Vital Signs Date Time Temp Pulse Resp B/P Pulse Ox O2 Delivery O2 Flow Rate FiO2 05/06/17 12:05 67 05/06/17 11:07 97.6 21 155/68 98 05/06/17 09:47 21 05/05/17 08:32 Nasal Cannula 2.0 Intake and Output 05/05/17 05/05/17 05/06/17 14:59 22:59 06:59 Intake Total 500 ml 700 ml 200 ml Output Total 2000 ml Balance -1500 ml 700 ml 200 ml Exam Constitutional: alert, oriented Neck: non-tender, supple Respiratory: clear to auscultation, normal air movement Cardiovascular: nl pulses, regular rate and rhythm Gastrointestinal: nl liver, spleen, non-tender, soft Results Result Diagram: 05/05/17 0549 05/05/17 0549 Results 24 hrs Laboratory Tests Test 05/05/17 17:37 05/05/17 17:38 05/05/17 17:48 05/05/17 17:57 Bedside Glucose 32 *L 34 *L 53 L 183 Test 05/05/17 18:09 05/05/17 20:59 05/06/17 07:26 05/06/17 07:27 Bedside Glucose 133 187 69 L 73 Test 05/06/17 11:56 Bedside Glucose 224 H Medications Medications Current Medications Ondansetron HCl (Zofran Tab) 4 mg Q6H PRN PO NAUSEA AND/OR VOMITING; Start at 23:00 Nitroglycerin (Nitroglycerin (Sl Tab) 0.4 Mg) 1 tab Q5M PRN SL CHEST PAIN; Start 04/24/17 at 23:00 Docusate Sodium (Colace) 100 mg Q12H PRN PO CONSTIPATION; Start 04/24/17 at 23 :00 Bisacodyl (Dulcolax) 5 mg DAILY PRN PO CONSTIPATION; Start 04/24/17 at 23:00 Atorvastatin Calcium (Lipitor) 80 mg QHS PO Last administered on 05/05/17t 21: 01; Admin Dose 80 MG; Start 04/25/17 at 21:00 Ergocalciferol (Drisdol) 50,000 unit Mo@09 PO Last administered on 05/06/17 09:13; Admin Dose 50,000 UNIT; Start 04/24/17 at 23:00 Ferrous Sulfate (Ferrous Sulfate (Ec)) 325 mg DAILY PO Last administered on 09:03; Admin Dose 325 MG; Start 04/25/17 at 09:00 Multivit/Ca Carb/ B Cmplx/FA/Prenat (Isabel-Brenda) 1 tab DAILY PO Last administered on 05/06/17 09:03; Admin Dose 1 TAB; Start 04/25/17 at 09:00 Pantoprazole (Protonix Tab) 40 mg DAILY@06 PO Last administered on 05/06/17 05:52; Admin Dose 40 MG; Start 04/25/17 at 06:00 Guaifenesin/ Dextromethorphan (Mucinex Dm) 1 tab BID PO Last administered on 09:04; Admin Dose 1 TAB; Start 04/25/17 at 03:15 Hydralazine HCl (Apresoline) 10 mg Q4H PRN IV ELEVATED BLOOD PRESSURE Last administered on 05/03/17 01:01; Admin Dose 10 MG; Start 04/25/17 at 03:30 Diagnostic Test (Pha) (Accu-Chek) 1 ea 02 XX Last administered on 05/04/17 02: 00; Admin Dose 1 EA; Start 04/26/17 at 02:00 Citric Acid/ Sodium Citrate (Bicitra) 30 ml TID PO Last administered on 12:05; Admin Dose 30 ML; Start 04/25/17 at 13:00 Aspirin (Aspirin) 81 mg DAILY PO Last administered on 04/30/17 10:05; Admin Dose 81 MG; Start 04/25/17 at 12:00; Status Future Hold Heparin Sodium (Porcine) (Heparin (5000 Units/0.5 ml)) 5,000 unit BID SC Last administered on 05/06/17 09:12; Admin Dose 5,000 UNIT; Start 04/26/17 at 09:00 Miscellaneous Information 1 ea NOTE XX Last administered on 04/30/17 17:45; Admin Dose 1 EA; Start 04/25/17 at 12:00 Glucose (Glutose) 15 gm Q15M PRN PO DECREASED GLUCOSE; Start 04/25/17 at 12:00 Glucose (Glutose) 22.5 gm Q15M PRN PO DECREASED GLUCOSE; Start 04/25/17 at 12: 00 Dextrose (D50w Syringe) 25 ml Q15M PRN IV DECREASED GLUCOSE; Start 04/25/17 at 12:00 Dextrose (D50w Syringe) 50 ml Q15M PRN IV DECREASED GLUCOSE; Start 04/25/17 at 12:00 Glucagon (Glucagen) 1 mg Q15M PRN IM DECREASED GLUCOSE; Start 04/25/17 at 12: 00 Glucose (Glutose) 15 gm Q15M PRN BUCCAL DECREASED GLUCOSE; Start 04/25/17 at 12:00 Furosemide (Lasix) 20 mg BID IV Last administered on 05/06/17 09:04; Admin Dose 20 MG; Start 04/26/17 at 09:00 Fish Oil (Fish Oil) 2,000 mg BID PO Last administered on 05/06/17 09:03; Admin Dose 2,000 MG; Start 04/27/17 at 21:00 EZETIMIBE (Zetia) 10 mg DAILY PO Last administered on 05/06/17 09:03; Admin Dose 10 MG; Start 04/28/17 at 09:00 Morphine Sulfate (morphine) 2 mg Q4H PRN IV Pain Last administered on 10:24; Admin Dose 2 MG; Start 04/28/17 at 09:00 Linagliptin (Tradjenta) 5 mg DAILY PO Last administered on 05/06/17 09:04; Admin Dose 5 MG; Start 04/28/17 at 12:00 Tiotropium [place] (Spiriva) 1 inh DAILY INH Last administered on 05/06/17 09 :05; Admin Dose 1 INH; Start 04/30/17 at 13:30 Salmeterol Xinafoate/ Fluticasone (Advair 250/50 Diskus) 1 inh BID INH Last administered on 05/06/17 09:04; Admin Dose 1 INH; Start 04/30/17 at 21:00 Amlodipine Besylate (Norvasc) 5 mg BID PO Last administered on 05/06/17 09:03 ; Admin Dose 5 MG; Start 05/03/17 at 21:00 Insulin Glargine (Lantus) 35 unit BID SC Last administered on 05/05/17 21:34 ; Admin Dose 35 UNIT; Start 05/03/17 at 21:00 Carvedilol (Coreg) 3.125 mg BID PO Last administered on 05/06/17 09:03; Admin Dose 3.125 MG; Start 05/04/17 at 09:00 MARA GRAYSON MD May 06, 2017 13:31
--- NOTE | 2017-05-06 13:45 | CONS ---
Date/Time of Note Date/Time of Note DATE: 05/06/17 TIME: 13:43 Assessment/Plan Assessment/Plan Chief Complaint/Hosp Course SUBJECTIVE: No acute changes. The patient is alert, feels good, no fevers. PHYSICAL EXAMINATION: GENERAL: This is a fragile well-developed elderly man who is awake, in no distress. HEENT: Head atraumatic, normocephalic. Sclerae anicteric. Buccal mucosa dry. NECK: Supple. CHEST: Rise symmetrical. Breath sounds with scattered crackles and expiratory wheezes. HEART: S1, S2. ABDOMEN: Soft, bowel tones present. EXTREMITIES: Without cyanosis. ASSESSMENT: 1. Systemic inflammatory response syndrome with ongoing leukocytosis, status post steroids. 2. Acute chronic obstructive pulmonary disease exacerbation==> s/p Cefepime. 3. Pulmonary edema. 4. End-stage renal disease, now on hemodialysis. 5. Diabetes. 6. History of coronary artery bypass graft. 7. Hypertension. 8. Acute on chronic anemia PLAN: The patient remains stable. Off antibiotics, continue present care, pulmonary/card/renal rec-s DW family at bedside DW staff Problems: Consultation Date/Type/Reason Admit Date/Time Apr 24, 2017 at 19:05 Initial Consult Date 04/27/17 Type of Consultation: id Referring Provider: NANY PRIEST FLORAL SPECIALIST Exam/Review of Systems Vital Signs Vitals Vital Signs Date Time Temp Pulse Resp B/P Pulse Ox O2 Delivery O2 Flow Rate FiO2 05/06/17 13:18 76 20 98 21 05/06/17 11:07 97.6 155/68 05/05/17 08:32 Nasal Cannula 2.0 Intake and Output 05/05/17 05/05/17 05/06/17 15:00 23:00 07:00 Intake Total 500 ml 700 ml 200 ml Output Total 2000 ml Balance -1500 ml 700 ml 200 ml Results Result Diagram: 05/05/17 0549 05/05/17 0549 Results 24 hrs Laboratory Tests Test 05/05/17 17:37 05/05/17 17:38 05/05/17 17:48 05/05/17 17:57 Bedside Glucose 32 *L 34 *L 53 L 183 Test 05/05/17 18:09 05/05/17 20:59 05/06/17 07:26 05/06/17 07:27 Bedside Glucose 133 187 69 L 73 Test 05/06/17 11:56 Bedside Glucose 224 H Medications Medications Current Medications Ondansetron HCl (Zofran Tab) 4 mg Q6H PRN PO NAUSEA AND/OR VOMITING; Start at 23:00 Nitroglycerin (Nitroglycerin (Sl Tab) 0.4 Mg) 1 tab Q5M PRN SL CHEST PAIN; Start 04/24/17 at 23:00 Docusate Sodium (Colace) 100 mg Q12H PRN PO CONSTIPATION; Start 04/24/17 at 23 :00 Bisacodyl (Dulcolax) 5 mg DAILY PRN PO CONSTIPATION; Start 04/24/17 at 23:00 Atorvastatin Calcium (Lipitor) 80 mg QHS PO Last administered on 05/05/17 21: 01; Admin Dose 80 MG; Start 04/25/17 at 21:00 Ergocalciferol (Drisdol) 50,000 unit Mo@09 PO Last administered on 05/06/17 09:13; Admin Dose 50,000 UNIT; Start 04/24/17 at 23:00 Ferrous Sulfate (Ferrous Sulfate (Ec)) 325 mg DAILY PO Last administered on 09:03; Admin Dose 325 MG; Start 04/25/17 at 09:00 Multivit/Ca Carb/ B Cmplx/FA/Prenat (Isabel-Brenda) 1 tab DAILY PO Last administered on 05/06/17 09:03; Admin Dose 1 TAB; Start 04/25/17 at 09:00 Pantoprazole (Protonix Tab) 40 mg DAILY@06 PO Last administered on 05/06/17 05:52; Admin Dose 40 MG; Start 04/25/17 at 06:00 Guaifenesin/ Dextromethorphan (Mucinex Dm) 1 tab BID PO Last administered on 09:04; Admin Dose 1 TAB; Start 04/25/17 at 03:15 Hydralazine HCl (Apresoline) 10 mg Q4H PRN IV ELEVATED BLOOD PRESSURE Last administered on 05/03/17 01:01; Admin Dose 10 MG; Start 04/25/17 at 03:30 Diagnostic Test (Pha) (Accu-Chek) 1 ea 02 XX Last administered on 05/04/17 02: 00; Admin Dose 1 EA; Start 04/26/17 at 02:00 Citric Acid/ Sodium Citrate (Bicitra) 30 ml TID PO Last administered on 12:05; Admin Dose 30 ML; Start 04/25/17 at 13:00 Aspirin (Aspirin) 81 mg DAILY PO Last administered on 04/30/17 10:05; Admin Dose 81 MG; Start 04/25/17 at 12:00; Status Future Hold Heparin Sodium (Porcine) (Heparin (5000 Units/0.5 ml)) 5,000 unit BID SC Last administered on 05/06/17 09:12; Admin Dose 5,000 UNIT; Start 04/26/17 at 09:00 Miscellaneous Information 1 ea NOTE XX Last administered on 04/30/17 17:45; Admin Dose 1 EA; Start 04/25/17 at 12:00 Glucose (Glutose) 15 gm Q15M PRN PO DECREASED GLUCOSE; Start 04/25/17 at 12:00 Glucose (Glutose) 22.5 gm Q15M PRN PO DECREASED GLUCOSE; Start 04/25/17 at 12: 00 Dextrose (D50w Syringe) 25 ml Q15M PRN IV DECREASED GLUCOSE; Start 04/25/17 at 12:00 Dextrose (D50w Syringe) 50 ml Q15M PRN IV DECREASED GLUCOSE; Start 04/25/17 at 12:00 Glucagon (Glucagen) 1 mg Q15M PRN IM DECREASED GLUCOSE; Start 04/25/17 at 12: 00 Glucose (Glutose) 15 gm Q15M PRN BUCCAL DECREASED GLUCOSE; Start 04/25/17 at 12:00 Furosemide (Lasix) 20 mg BID IV Last administered on 05/06/17 09:04; Admin Dose 20 MG; Start 04/26/17 at 09:00 Fish Oil (Fish Oil) 2,000 mg BID PO Last administered on 05/06/17 09:03; Admin Dose 2,000 MG; Start 04/27/17 at 21:00 EZETIMIBE (Zetia) 10 mg DAILY PO Last administered on 05/06/17 09:03; Admin Dose 10 MG; Start 04/28/17 at 09:00 Morphine Sulfate (morphine) 2 mg Q4H PRN IV Pain Last administered on 10:24; Admin Dose 2 MG; Start 04/28/17 at 09:00 Linagliptin (Tradjenta) 5 mg DAILY PO Last administered on 05/06/17 09:04; Admin Dose 5 MG; Start 04/28/17 at 12:00 Tiotropium [place] (Spiriva) 1 inh DAILY INH Last administered on 05/06/17 09 :05; Admin Dose 1 INH; Start 04/30/17 at 13:30 Salmeterol Xinafoate/ Fluticasone (Advair 250/50 Diskus) 1 inh BID INH Last administered on 05/06/17 09:04; Admin Dose 1 INH; Start 04/30/17 at 21:00 Amlodipine Besylate (Norvasc) 5 mg BID PO Last administered on 05/06/17 09:03 ; Admin Dose 5 MG; Start 05/03/17 at 21:00 Carvedilol (Coreg) 3.125 mg BID PO Last administered on 05/06/17 09:03; Admin Dose 3.125 MG; Start 05/04/17 at 09:00 Insulin Glargine (Lantus) 32 unit BID SC ; Start 05/06/17 at 21:00; Status UNMARIELA IVAN NP May 06, 2017 13:45
--- NOTE | 2017-05-06 16:16 | CONS ---
Date/Time of Note Date/Time of Note DATE: 05/06/17 TIME: 16:15 Assessment/Plan Assessment/Plan Additional Assessment/Plan Volume overload Acute kidney injury with history of CKD, started on hemodialysis Acute decompensated diastolic congestive heart failure Diabetes CAD with history of PCI over 10 years ago Hypertension Dyslipidemia History of DVT, previously on anticoagulation Acute blood loss anemia status post blood transfusion Intermittent Mobitz type I, asymptomatic - Aspirin and anticoagulation have been stopped secondary to recurrent anemia requiring blood transfusion. Fluid management via hemodialysis as per our nephrology colleagues. Continue statin therapy. Consultation Date/Type/Reason Admit Date/Time Apr 24, 2017 at 19:05 Initial Consult Date 04/27/17 Type of Consultation: cv Referring Provider: NANY PRIEST CHAIR SPRINGER 24 HR Interval Summary Free Text/Dictation Shortness of breath and fatigue is better. Denies chest pain or dizziness Exam/Review of Systems Vital Signs Vitals Vital Signs Date Time Temp Pulse Resp B/P Pulse Ox O2 Delivery O2 Flow Rate FiO2 05/06/17 16:02 74 05/06/17 15:29 97.0 19 157/71 92 05/06/17 13:18 21 05/05/17 08:32 Nasal Cannula 2.0 Intake and Output 05/05/17 05/05/17 05/06/17 15:00 23:00 07:00 Intake Total 500 ml 700 ml 200 ml Output Total 2000 ml Balance -1500 ml 700 ml 200 ml Exam No apparent distress Constitutional: alert, oriented Head: normocephalic Respiratory: other (Coarse breath sounds bilaterally, no wheezing) Cardiovascular: other (S1-S2 heard), regular rate and rhythm Gastrointestinal: bowel sounds, non-tender, soft Extremities: edema Results Result Diagram: 05/05/17 0549 05/05/17 0549 Results 24 hrs Laboratory Tests Test 05/05/17 17:37 05/05/17 17:38 05/05/17 17:48 05/05/17 17:57 Bedside Glucose 32 *L 34 *L 53 L 183 Test 05/05/17 18:09 05/05/17 20:59 05/06/17 07:26 05/06/17 07:27 Bedside Glucose 133 187 69 L 73 Test 05/06/17 11:56 Bedside Glucose 224 H Medications Medications Current Medications Ondansetron HCl (Zofran Tab) 4 mg Q6H PRN PO NAUSEA AND/OR VOMITING; Start at 23:00 Nitroglycerin (Nitroglycerin (Sl Tab) 0.4 Mg) 1 tab Q5M PRN SL CHEST PAIN; Start 04/24/17 at 23:00 Docusate Sodium (Colace) 100 mg Q12H PRN PO CONSTIPATION; Start 04/24/17 at 23 :00 Bisacodyl (Dulcolax) 5 mg DAILY PRN PO CONSTIPATION; Start 04/24/17 at 23:00 Atorvastatin Calcium (Lipitor) 80 mg QHS PO Last administered on 05/05/17 21: 01; Admin Dose 80 MG; Start 04/25/17 at 21:00 Ergocalciferol (Drisdol) 50,000 unit Mo@09 PO Last administered on 05/06/17 09:13; Admin Dose 50,000 UNIT; Start 04/24/17 at 23:00 Ferrous Sulfate (Ferrous Sulfate (Ec)) 325 mg DAILY PO Last administered on 09:03; Admin Dose 325 MG; Start 04/25/17 at 09:00 Multivit/Ca Carb/ B Cmplx/FA/Prenat (Isabel-Brenda) 1 tab DAILY PO Last administered on 05/06/17 09:03; Admin Dose 1 TAB; Start 04/25/17 at 09:00 Pantoprazole (Protonix Tab) 40 mg DAILY@06 PO Last administered on 05/06/17 05:52; Admin Dose 40 MG; Start 04/25/17 at 06:00 Guaifenesin/ Dextromethorphan (Mucinex Dm) 1 tab BID PO Last administered on 09:04; Admin Dose 1 TAB; Start 04/25/17 at 03:15 Hydralazine HCl (Apresoline) 10 mg Q4H PRN IV ELEVATED BLOOD PRESSURE Last administered on 05/03/17 01:01; Admin Dose 10 MG; Start 04/25/17 at 03:30 Diagnostic Test (Pha) (Accu-Chek) 1 ea 02 XX Last administered on 05/04/17 02: 00; Admin Dose 1 EA; Start 04/26/17 at 02:00 Citric Acid/ Sodium Citrate (Bicitra) 30 ml TID PO Last administered on 12:05; Admin Dose 30 ML; Start 04/25/17 at 13:00 Aspirin (Aspirin) 81 mg DAILY PO Last administered on 04/30/17 10:05; Admin Dose 81 MG; Start 04/25/17 at 12:00; Status Future Hold Heparin Sodium (Porcine) (Heparin (5000 Units/0.5 ml)) 5,000 unit BID SC Last administered on 05/06/17 09:12; Admin Dose 5,000 UNIT; Start 04/26/17 at 09:00 Miscellaneous Information 1 ea NOTE XX Last administered on 04/30/17 17:45; Admin Dose 1 EA; Start 04/25/17 at 12:00 Glucose (Glutose) 15 gm Q15M PRN PO DECREASED GLUCOSE; Start 04/25/17 at 12:00 Glucose (Glutose) 22.5 gm Q15M PRN PO DECREASED GLUCOSE; Start 04/25/17 at 12: 00 Dextrose (D50w Syringe) 25 ml Q15M PRN IV DECREASED GLUCOSE; Start 04/25/17 at 12:00 Dextrose (D50w Syringe) 50 ml Q15M PRN IV DECREASED GLUCOSE; Start 04/25/17 at 12:00 Glucagon (Glucagen) 1 mg Q15M PRN IM DECREASED GLUCOSE; Start 04/25/17 at 12: 00 Glucose (Glutose) 15 gm Q15M PRN BUCCAL DECREASED GLUCOSE; Start 04/25/17 at 12:00 Furosemide (Lasix) 20 mg BID IV Last administered on 05/06/17 09:04; Admin Dose 20 MG; Start 04/26/17 at 09:00 Fish Oil (Fish Oil) 2,000 mg BID PO Last administered on 05/06/17 09:03; Admin Dose 2,000 MG; Start 04/27/17 at 21:00 EZETIMIBE (Zetia) 10 mg DAILY PO Last administered on 05/06/17 09:03; Admin Dose 10 MG; Start 04/28/17 at 09:00 Morphine Sulfate (morphine) 2 mg Q4H PRN IV Pain Last administered on 10:24; Admin Dose 2 MG; Start 04/28/17 at 09:00 Linagliptin (Tradjenta) 5 mg DAILY PO Last administered on 05/06/17 09:04; Admin Dose 5 MG; Start 04/28/17 at 12:00 Tiotropium [place] (Spiriva) 1 inh DAILY INH Last administered on 05/06/17 09 :05; Admin Dose 1 INH; Start 04/30/17 at 13:30 Salmeterol Xinafoate/ Fluticasone (Advair 250/50 Diskus) 1 inh BID INH Last administered on 05/06/17 09:04; Admin Dose 1 INH; Start 04/30/17 at 21:00 Amlodipine Besylate (Norvasc) 5 mg BID PO Last administered on 05/06/17 09:03 ; Admin Dose 5 MG; Start 05/03/17 at 21:00 Carvedilol (Coreg) 3.125 mg BID PO Last administered on 05/06/17 09:03; Admin Dose 3.125 MG; Start 05/04/17 at 09:00 Insulin Glargine (Lantus) 32 unit BID SC ; Start 05/06/17 at 21:00 Dell De La Torre DO May 06, 2017 16:16
--- NOTE | 2017-05-06 17:23 | CONS ---
Date/Time of Note Date/Time of Note DATE: 05/06/17 TIME: 17:21 Assessment/Plan Assessment/Plan Additional Assessment/Plan 1. 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 H/o CKD due to diabetic nehropathy as per pt was stage IV/V with eGFR 15 as outpatient 3. Acute hyperkalemia due to TROY on CKD - resolved after pt gets started on HD 4. Metabolic acidosis due to worsenign renal failure 5. H/ CAD S/p previous coronary angiogram as per patient 6. Hypertension 7. Type II DM 8. Hyperlipidemia 9. Acute NSETMI due to CHF 10. severe anemia despite getting PRBC, concerned abotu GI bleeding, Plan : hepatitis C antibody positive, Hepatitis A antibody positive EGD showed distal esophagitis, Plan for HD tomorrow s/p permacath, placement, HD placement confirmed at [facility] Renal US showed small size kidneys, no hydronephrosis, c/w CKD on Epogen for anemia will follow up Consultation Date/Type/Reason Admit Date/Time Apr 24, 2017 at 19:05 Initial Consult Date 04/25/17 Type of Consultation: NEPHROLOG Y Referring Provider: NANY PRIEST NP 24 HR Interval Summary Free Text/Dictation stable, BP , no SOB, s/p permacath, Hd placement [facility] confirmed Exam/Review of Systems Vital Signs Vitals Vital Signs Date Time Temp Pulse Resp B/P Pulse Ox O2 Delivery O2 Flow Rate FiO2 05/06/17 16:52 82 18 98 21 05/06/17 15:29 97.0 157/71 05/05/17 08:32 Nasal Cannula 2.0 Intake and Output 05/05/17 05/05/17 05/06/17 15:00 23:00 07:00 Intake Total 500 ml 700 ml 200 ml Output Total 2000 ml Balance -1500 ml 700 ml 200 ml Exam Constitutional: alert Respiratory: clear to auscultation, diminished breath sounds, normal air movement, + right chest permacath Cardiovascular: nl pulses, regular rate and rhythm Gastrointestinal: non-tender, soft Musculoskeletal: muscle weakness, nl extremities to inspection, swelling Extremities: calf tenderness, normal pulses 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: BRIM ROUNDER II-XII intact, nl mental status, nl speech, nl strength Results Result Diagram: 05/05/17 0549 05/05/17 0549 Results 24 hrs Laboratory Tests Test 05/05/17 17:37 05/05/17 17:38 05/05/17 17:48 05/05/17 17:57 Bedside Glucose 32 *L 34 *L 53 L 183 Test 05/05/17 18:09 05/05/17 20:59 05/06/17 07:26 05/06/17 07:27 Bedside Glucose 133 187 69 L 73 Test 05/06/17 11:56 Bedside Glucose 224 H Medications Medications Current Medications Ondansetron HCl (Zofran Tab) 4 mg Q6H PRN PO NAUSEA AND/OR VOMITING; Start at 23:00 Nitroglycerin (Nitroglycerin (Sl Tab) 0.4 Mg) 1 tab Q5M PRN SL CHEST PAIN; Start 04/24/17 at 23:00 Docusate Sodium (Colace) 100 mg Q12H PRN PO CONSTIPATION; Start 04/24/17 at 23 :00 Bisacodyl (Dulcolax) 5 mg DAILY PRN PO CONSTIPATION; Start 04/24/17 at 23:00 Atorvastatin Calcium (Lipitor) 80 mg QHS PO Last administered on 05/05/17 21: 01; Admin Dose 80 MG; Start 04/25/17 at 21:00 Ergocalciferol (Drisdol) 50,000 unit Mo@09 PO Last administered on 05/06/17 09:13; Admin Dose 50,000 UNIT; Start 04/24/17 at 23:00 Ferrous Sulfate (Ferrous Sulfate (Ec)) 325 mg DAILY PO Last administered on 09:03; Admin Dose 325 MG; Start 04/25/17 at 09:00 Multivit/Ca Carb/ B Cmplx/FA/Prenat (Isabel-Brenda) 1 tab DAILY PO Last administered on 05/06/17 09:03; Admin Dose 1 TAB; Start 04/25/17 at 09:00 Pantoprazole (Protonix Tab) 40 mg DAILY@06 PO Last administered on 05/06/17 05:52; Admin Dose 40 MG; Start 04/25/17 at 06:00 Guaifenesin/ Dextromethorphan (Mucinex Dm) 1 tab BID PO Last administered on 09:04; Admin Dose 1 TAB; Start 04/25/17 at 03:15 Hydralazine HCl (Apresoline) 10 mg Q4H PRN IV ELEVATED BLOOD PRESSURE Last administered on 05/03/17 01:01; Admin Dose 10 MG; Start 04/25/17 at 03:30 Diagnostic Test (Pha) (Accu-Chek) 1 ea 02 XX Last administered on 05/04/17 02: 00; Admin Dose 1 EA; Start 04/26/17 at 02:00 Citric Acid/ Sodium Citrate (Bicitra) 30 ml TID PO Last administered on 12:05; Admin Dose 30 ML; Start 04/25/17 at 13:00 Aspirin (Aspirin) 81 mg DAILY PO Last administered on 04/30/17 10:05; Admin Dose 81 MG; Start 04/25/17 at 12:00; Status Future Hold Heparin Sodium (Porcine) (Heparin (5000 Units/0.5 ml)) 5,000 unit BID SC Last administered on 05/06/17 09:12; Admin Dose 5,000 UNIT; Start 04/26/17 at 09:00 Miscellaneous Information 1 ea NOTE XX Last administered on 04/30/17 17:45; Admin Dose 1 EA; Start 04/25/17 at 12:00 Glucose (Glutose) 15 gm Q15M PRN PO DECREASED GLUCOSE; Start 04/25/17 at 12:00 Glucose (Glutose) 22.5 gm Q15M PRN PO DECREASED GLUCOSE; Start 04/25/17 at 12: 00 Dextrose (D50w Syringe) 25 ml Q15M PRN IV DECREASED GLUCOSE; Start 04/25/17 at 12:00 Dextrose (D50w Syringe) 50 ml Q15M PRN IV DECREASED GLUCOSE; Start 04/25/17 at 12:00 Glucagon (Glucagen) 1 mg Q15M PRN IM DECREASED GLUCOSE; Start 04/25/17 at 12: 00 Glucose (Glutose) 15 gm Q15M PRN BUCCAL DECREASED GLUCOSE; Start 04/25/17 at 12:00 Furosemide (Lasix) 20 mg BID IV Last administered on 05/06/17 09:04; Admin Dose 20 MG; Start 04/26/17 at 09:00 Fish Oil (Fish Oil) 2,000 mg BID PO Last administered on 05/06/17 09:03; Admin Dose 2,000 MG; Start 04/27/17 at 21:00 EZETIMIBE (Zetia) 10 mg DAILY PO Last administered on 05/06/17 09:03; Admin Dose 10 MG; Start 04/28/17 at 09:00 Morphine Sulfate (morphine) 2 mg Q4H PRN IV Pain Last administered on 10:24; Admin Dose 2 MG; Start 04/28/17 at 09:00 Linagliptin (Tradjenta) 5 mg DAILY PO Last administered on 05/06/17 09:04; Admin Dose 5 MG; Start 04/28/17 at 12:00 Tiotropium [place] (Spiriva) 1 inh DAILY INH Last administered on 05/06/17 09 :05; Admin Dose 1 INH; Start 04/30/17 at 13:30 Salmeterol Xinafoate/ Fluticasone (Advair 250/50 Diskus) 1 inh BID INH Last administered on 05/06/17 09:04; Admin Dose 1 INH; Start 04/30/17 at 21:00 Amlodipine Besylate (Norvasc) 5 mg BID PO Last administered on 05/06/17 09:03 ; Admin Dose 5 MG; Start 05/03/17 at 21:00 Carvedilol (Coreg) 3.125 mg BID PO Last administered on 05/06/17 09:03; Admin Dose 3.125 MG; Start 05/04/17 at 09:00 Insulin Glargine (Lantus) 32 unit BID SC ; Start 05/06/17 at 21:00 RAQUEL MCDOWELL MD May 06, 2017 17:23
[2017-05-06] MEDS: ATORVASTATIN 80 MG TAB PO SCH (21:31)
[2017-05-07] VITALS (20 sets, daily range): BP systolic 110–158; BP diastolic 56–94; PULSE 64–80; RESP 16–20
[2017-05-07] MEDS: ALBUTEROL/IPRATROPIUM (NEB) 3 ML AMP HHN SCH ×6 (00:06→20:22)
[2017-05-07] MEDS: ACCU-CHEK XX SCH (02:00)
[2017-05-07] MEDS: PANTOPRAZOLE (EC) 40 MG TAB PO SCH (05:37)
[2017-05-07] MEDS: INSULIN ASPART [NOVOLOG] 3 ML PEN SC SCH ×7 (07:55→21:21)
[2017-05-07] MEDS: FISH OIL 1,000 MG CAP PO SCH ×2 (09:37→21:16)
[2017-05-07] MEDS: GUAIFENESIN/DM (SR) TAB PO SCH ×2 (09:37→21:16)
[2017-05-07] MEDS: CITRIC ACID/SODIUM CITRATE 15 ML CUP PO SCH ×3 (09:39→21:16)
[2017-05-07] MEDS: MULTIVIT/CA CARB/B CMPLX/FA TAB PO SCH (09:39)
[2017-05-07] MEDS: EZETIMIBE 10 MG TAB PO SCH (09:39)
[2017-05-07] MEDS: AMLODIPINE 5 MG TAB PO SCH ×2 (09:39→21:16)
[2017-05-07] MEDS: LINAGLIPTIN 5 MG TABLET PO SCH (09:39)
[2017-05-07] MEDS: FERROUS SULFATE (EC) 325 MG TAB PO SCH (09:39)
[2017-05-07] MEDS: FUROSEMIDE 20 MG INJ IV SCH ×2 (09:47→21:15)
[2017-05-07] MEDS: HEPARIN 5,000 UNIT/0.5 ML VIAL SC SCH ×2 (09:51→21:20)
[2017-05-07] MEDS: BUDESONIDE (NEB) 0.5MG/2ML AMP HHN SCH (10:16)
[2017-05-07] MEDS: SALMETEROL/FLUTICASONE 250/50 INHA INH SCH ×2 (10:37→21:15)
[2017-05-07] MEDS: INSULIN GLARGINE [LANtus] 3 ML PEN SC SCH ×2 (10:38→21:22)
--- NOTE | 2017-05-07 11:08 | CONS ---
Date/Time of Note Date/Time of Note DATE: 05/07/17 TIME: 11:07 Consult Date/Type/Reason Admit Date/Time Apr 24, 2017 at 19:05 Initial Consult Date 05/01/17 Type of Consultation: Pulm Ordering Provider: NANY PRIEST NP Subjective comfortable, no events. Objective Vital Signs Date Time Temp Pulse Resp B/P Pulse Ox O2 Delivery O2 Flow Rate FiO2 05/07/17 10:05 85 18 96 21 05/07/17 07:58 98.4 158/67 05/05/17 08:32 Nasal Cannula 2.0 Intake and Output 05/06/17 05/06/17 05/07/17 14:59 22:59 06:59 Intake Total 700 ml 500 ml Balance 700 ml 500 ml Exam GENERAL: Elderly [place] gentleman comfortable at rest no acute distress VITAL SIGNS: per chart NECK: Supple. No JVD or lymphadenopathy. CARDIAC EXAM: S1, S2. No added sounds or murmurs. CHEST: clear bilaterally, No added sounds, rales or wheezes ABDOMEN: Soft, nontender. No guarding or rebound. EXTREMITIES: No cyanosis, clubbing or edema. NEUROLOGIC: Generalized weakness. No focal deficits. Results/Medications Result Diagram: 05/05/17 0549 05/05/17 0549 Results 24 hrs Laboratory Tests Test 05/06/17 11:56 05/06/17 17:24 05/06/17 20:16 05/07/17 08:17 Bedside Glucose 224 H 139 102 134 Medications Current Medications Ondansetron HCl (Zofran Tab) 4 mg Q6H PRN PO NAUSEA AND/OR VOMITING; Start at 23:00 Nitroglycerin (Nitroglycerin (Sl Tab) 0.4 Mg) 1 tab Q5M PRN SL CHEST PAIN; Start 04/24/17 at 23:00 Docusate Sodium (Colace) 100 mg Q12H PRN PO CONSTIPATION; Start 04/24/17 at 23 :00 Bisacodyl (Dulcolax) 5 mg DAILY PRN PO CONSTIPATION; Start 04/24/17 at 23:00 Atorvastatin Calcium (Lipitor) 80 mg QHS PO Last administered on 05/06/17t 21: 31; Admin Dose 80 MG; Start 04/25/17 at 21:00 Ergocalciferol (Drisdol) 50,000 unit Mo@09 PO Last administered on 05/06/17 09:13; Admin Dose 50,000 UNIT; Start 04/24/17 at 23:00 Ferrous Sulfate (Ferrous Sulfate (Ec)) 325 mg DAILY PO Last administered on 09:39; Admin Dose 325 MG; Start 04/25/17 at 09:00 Multivit/Ca Carb/ B Cmplx/FA/Prenat (Isabel-Brenda) 1 tab DAILY PO Last administered on 05/07/17 09:39; Admin Dose 1 TAB; Start 04/25/17 at 09:00 Pantoprazole (Protonix Tab) 40 mg DAILY@06 PO Last administered on 05/07/17 05:37; Admin Dose 40 MG; Start 04/25/17 at 06:00 Guaifenesin/ Dextromethorphan (Mucinex Dm) 1 tab BID PO Last administered on 09:37; Admin Dose 1 TAB; Start 04/25/17 at 03:15 Hydralazine HCl (Apresoline) 10 mg Q4H PRN IV ELEVATED BLOOD PRESSURE Last administered on 05/03/17 01:01; Admin Dose 10 MG; Start 04/25/17 at 03:30 Diagnostic Test (Pha) (Accu-Chek) 1 ea 02 XX Last administered on 05/04/17 02: 00; Admin Dose 1 EA; Start 04/26/17 at 02:00 Citric Acid/ Sodium Citrate (Bicitra) 30 ml TID PO Last administered on 09:39; Admin Dose 30 ML; Start 04/25/17 at 13:00 Aspirin (Aspirin) 81 mg DAILY PO Last administered on 04/30/17 10:05; Admin Dose 81 MG; Start 04/25/17 at 12:00; Status Future Hold Heparin Sodium (Porcine) (Heparin (5000 Units/0.5 ml)) 5,000 unit BID SC Last administered on 05/07/17 09:51; Admin Dose 5,000 UNIT; Start 04/26/17 at 09:00 Miscellaneous Information 1 ea NOTE XX Last administered on 04/30/17 17:45; Admin Dose 1 EA; Start 04/25/17 at 12:00 Glucose (Glutose) 15 gm Q15M PRN PO DECREASED GLUCOSE; Start 04/25/17 at 12:00 Glucose (Glutose) 22.5 gm Q15M PRN PO DECREASED GLUCOSE; Start 04/25/17 at 12: 00 Dextrose (D50w Syringe) 25 ml Q15M PRN IV DECREASED GLUCOSE; Start 04/25/17 at 12:00 Dextrose (D50w Syringe) 50 ml Q15M PRN IV DECREASED GLUCOSE; Start 04/25/17 at 12:00 Glucagon (Glucagen) 1 mg Q15M PRN IM DECREASED GLUCOSE; Start 04/25/17 at 12: 00 Glucose (Glutose) 15 gm Q15M PRN BUCCAL DECREASED GLUCOSE; Start 04/25/17 at 12:00 Furosemide (Lasix) 20 mg BID IV Last administered on 05/07/17 09:47; Admin Dose 20 MG; Start 04/26/17 at 09:00 Fish Oil (Fish Oil) 2,000 mg BID PO Last administered on 05/07/17 09:37; Admin Dose 2,000 MG; Start 04/27/17 at 21:00 EZETIMIBE (Zetia) 10 mg DAILY PO Last administered on 05/07/17 09:39; Admin Dose 10 MG; Start 04/28/17 at 09:00 Morphine Sulfate (morphine) 2 mg Q4H PRN IV Pain Last administered on 10:24; Admin Dose 2 MG; Start 04/28/17 at 09:00 Linagliptin (Tradjenta) 5 mg DAILY PO Last administered on 05/07/17 09:39; Admin Dose 5 MG; Start 04/28/17 at 12:00 Tiotropium [place] (Spiriva) 1 inh DAILY INH Last administered on 05/06/17 09 :05; Admin Dose 1 INH; Start 04/30/17 at 13:30 Salmeterol Xinafoate/ Fluticasone (Advair 250/50 Diskus) 1 inh BID INH Last administered on 05/07/17 10:37; Admin Dose 1 INH; Start 04/30/17 at 21:00 Amlodipine Besylate (Norvasc) 5 mg BID PO Last administered on 05/07/17 09:39 ; Admin Dose 5 MG; Start 05/03/17 at 21:00 Carvedilol (Coreg) 3.125 mg BID PO Last administered on 05/06/17 21:32; Admin Dose 3.125 MG; Start 05/04/17 at 09:00 Insulin Glargine (Lantus) 32 unit BID SC Last administered on 05/07/17 10:38 ; Admin Dose 32 UNIT; Start 05/06/17 at 21:00 Assessment/Plan Chief Complaint/Hosp Course IMP: 1. Pulmonary edema with COPD exacerbation with interval improvement. 2. End-stage renal disease, on hemodialysis. 3. Anemia. Questionable GI bleed with drop in hemoglobin noted. 4. Diabetes. With hyperglycemia secondary to systemic steroids. 5. History of DVT. 6. History of hypertension. RECS: 1. HD/UF 2. Follow K+ 3. Am labs 4. DM control as per Jr DICKERSON planning okay from pulmonary standpoint Problems: BROOKE MARIE MD, [facility] May 07, 2017 11:08
[2017-05-07] MEDS: TIOTROPIUM 18 MCG CAPSULE INHA DEV INH SCH (12:13)
--- NOTE | 2017-05-07 14:17 | CONS ---
Date/Time of Note Date/Time of Note DATE: 05/07/17 TIME: 14:15 Assessment/Plan Assessment/Plan Chief Complaint/Hosp Course Pleasant Litzy gentleman with his family present in the room reporting a 30 year history of diabetes mellitus type 2. He had been on oral agent therapy but as his kidneys declined he was transitioned over to a multiple daily injection regimen using Lantus and NovoLog. He intermittently takes full dose Januvia 100 mg despite his renal dysfunction Problems: (1) Diabetes mellitus type 2 in obese Status: Chronic Comment: Adequate control on the current regimen. Continue same (2) End stage renal disease on dialysis due to type 2 diabetes mellitus Status: Chronic Comment: Stable on dialysis. Outpatient dialysis as per nephrology. (3) COPD (chronic obstructive pulmonary disease) Status: Chronic Comment: Adequate control on current regimen Qualifiers: COPD type: emphysema Emphysema type: unspecified Qualified Code: J43.9 - Pulmonary emphysema, unspecified emphysema type (4) Normocytic anemia Status: Acute Comment: As per nephrology and primary care team. It appears he is no longer actively losing blood Consultation Date/Type/Reason Admit Date/Time Apr 24, 2017 at 19:05 Initial Consult Date 04/27/17 Type of Consultation: Endocrinology Reason for Consultation Diabetes mellitus on multiple daily injection regimen with end-stage renal disease retinopathy peripheral neuropathy Referring Provider: NANY PRIEST NP 24 HR Interval Summary Free Text/Dictation Patient without hypoglycemic reactions or complaints Exam/Review of Systems Vital Signs Vitals Vital Signs Date Time Temp Pulse Resp B/P Pulse Ox O2 Delivery O2 Flow Rate FiO2 05/07/17 12:26 98.0 77 16 129/94 94 05/07/17 10:05 21 05/05/17 08:32 Nasal Cannula 2.0 Intake and Output 05/06/17 05/06/17 05/07/17 15:00 23:00 07:00 Intake Total 700 ml 500 ml Balance 700 ml 500 ml Results No change in exam Result Diagram: 05/05/17 0549 05/05/17 0549 Results 24 hrs Laboratory Tests Test 05/06/17 17:24 05/06/17 20:16 05/07/17 08:17 05/07/17 12:18 Bedside Glucose 139 102 134 140 Medications Medications Current Medications Ondansetron HCl (Zofran Tab) 4 mg Q6H PRN PO NAUSEA AND/OR VOMITING; Start at 23:00 Nitroglycerin (Nitroglycerin (Sl Tab) 0.4 Mg) 1 tab Q5M PRN SL CHEST PAIN; Start 04/24/17 at 23:00 Docusate Sodium (Colace) 100 mg Q12H PRN PO CONSTIPATION; Start 04/24/17 at 23 :00 Bisacodyl (Dulcolax) 5 mg DAILY PRN PO CONSTIPATION; Start 04/24/17 at 23:00 Atorvastatin Calcium (Lipitor) 80 mg QHS PO Last administered on 05/06/17 21: 31; Admin Dose 80 MG; Start 04/25/17 at 21:00 Ergocalciferol (Drisdol) 50,000 unit Mo@09 PO Last administered on 05/06/17 09:13; Admin Dose 50,000 UNIT; Start 04/24/17 at 23:00 Ferrous Sulfate (Ferrous Sulfate (Ec)) 325 mg DAILY PO Last administered on 09:39; Admin Dose 325 MG; Start 04/25/17 at 09:00 Multivit/Ca Carb/ B Cmplx/FA/Prenat (Isabel-Brenda) 1 tab DAILY PO Last administered on 05/07/17 09:39; Admin Dose 1 TAB; Start 04/25/17 at 09:00 Pantoprazole (Protonix Tab) 40 mg DAILY@06 PO Last administered on 05/07/17 05:37; Admin Dose 40 MG; Start 04/25/17 at 06:00 Guaifenesin/ Dextromethorphan (Mucinex Dm) 1 tab BID PO Last administered on 09:37; Admin Dose 1 TAB; Start 04/25/17 at 03:15 Hydralazine HCl (Apresoline) 10 mg Q4H PRN IV ELEVATED BLOOD PRESSURE Last administered on 05/03/17 01:01; Admin Dose 10 MG; Start 04/25/17 at 03:30 Diagnostic Test (Pha) (Accu-Chek) 1 ea 02 XX Last administered on 05/04/17 02: 00; Admin Dose 1 EA; Start 04/26/17 at 02:00 Citric Acid/ Sodium Citrate (Bicitra) 30 ml TID PO Last administered on 09:39; Admin Dose 30 ML; Start 04/25/17 at 13:00 Aspirin (Aspirin) 81 mg DAILY PO Last administered on 04/30/17 10:05; Admin Dose 81 MG; Start 04/25/17 at 12:00; Status Future Hold Heparin Sodium (Porcine) (Heparin (5000 Units/0.5 ml)) 5,000 unit BID SC Last administered on 05/07/17 09:51; Admin Dose 5,000 UNIT; Start 04/26/17 at 09:00 Miscellaneous Information 1 ea NOTE XX Last administered on 04/30/17 17:45; Admin Dose 1 EA; Start 04/25/17 at 12:00 Glucose (Glutose) 15 gm Q15M PRN PO DECREASED GLUCOSE; Start 04/25/17 at 12:00 Glucose (Glutose) 22.5 gm Q15M PRN PO DECREASED GLUCOSE; Start 04/25/17 at 12: 00 Dextrose (D50w Syringe) 25 ml Q15M PRN IV DECREASED GLUCOSE; Start 04/25/17 at 12:00 Dextrose (D50w Syringe) 50 ml Q15M PRN IV DECREASED GLUCOSE; Start 04/25/17 at 12:00 Glucagon (Glucagen) 1 mg Q15M PRN IM DECREASED GLUCOSE; Start 04/25/17 at 12: 00 Glucose (Glutose) 15 gm Q15M PRN BUCCAL DECREASED GLUCOSE; Start 04/25/17 at 12:00 Furosemide (Lasix) 20 mg BID IV Last administered on 05/07/17 09:47; Admin Dose 20 MG; Start 04/26/17 at 09:00 Fish Oil (Fish Oil) 2,000 mg BID PO Last administered on 05/07/17 09:37; Admin Dose 2,000 MG; Start 04/27/17 at 21:00 EZETIMIBE (Zetia) 10 mg DAILY PO Last administered on 05/07/17 09:39; Admin Dose 10 MG; Start 04/28/17 at 09:00 Morphine Sulfate (morphine) 2 mg Q4H PRN IV Pain Last administered on 10:24; Admin Dose 2 MG; Start 04/28/17 at 09:00 Linagliptin (Tradjenta) 5 mg DAILY PO Last administered on 05/07/17 09:39; Admin Dose 5 MG; Start 04/28/17 at 12:00 Tiotropium [place] (Spiriva) 1 inh DAILY INH Last administered on 05/07/17 12 :13; Admin Dose 1 INH; Start 04/30/17 at 13:30 Salmeterol Xinafoate/ Fluticasone (Advair 250/50 Diskus) 1 inh BID INH Last administered on 05/07/17 10:37; Admin Dose 1 INH; Start 04/30/17 at 21:00 Amlodipine Besylate (Norvasc) 5 mg BID PO Last administered on 05/07/17 09:39 ; Admin Dose 5 MG; Start 05/03/17 at 21:00 Carvedilol (Coreg) 3.125 mg BID PO Last administered on 05/06/17 21:32; Admin Dose 3.125 MG; Start 05/04/17 at 09:00 Insulin Glargine (Lantus) 32 unit BID SC Last administered on 05/07/17 10:38 ; Admin Dose 32 UNIT; Start 05/06/17 at 21:00 MARA GRAYSON MD May 07, 2017 14:17
--- NOTE | 2017-05-07 16:15 | PN ---
Date/Time of Note Date/Time of Note DATE: 05/07/17 TIME: 15:47 Assessment/Plan VTE Prophylaxis VTE Prophylaxis Intervention: SCD's Lines/Catheters IV C[facility]ter Type (from [facility]): permacath Urinary Cath still in place: No Reason Cath still needed: urinary retention (Monitoring urine output) Assessment/Plan Chief Complaint/Hosp Course Assessment: Anemia r/o GI bleed EGD 05/03/17 Impression: Moderate distal esophagitis. Post distal gastrectomy Billroth II anastomosis. Moderate bile reflux gastritis. Rule out H. pylori infection. Biopsies obtained Normal afferent and efferent jejunal mucosa Colonoscopy 05/03/17 Impression: Suboptimal examination due to poor preparation No gross lesions present. Moderate-sized internal hemorrhoids. Volume overload Diabetes type 2 Acute kidney injury with history of CKD, on hemodialysis Acute decompensated diastolic congestive heart failure CAD with history of PCI over 10 years ago Hypertension Dyslipidemia History of DVT, previously on anticoagulation Intermittent Mobitz type I, asymptomatic Plan: Stat CBC and CMP Small bowel x-ray to rule out GI bleed Monitor H&H and transfuse for hemoglobin less than 7.5 If no evidence of further bleeding repeat colonoscopy within 6 months to a year is recommended Continue PPI therapy Patient seen in collaboration with Subjective: Patient reports feeling fatigued. He is not getting out of bed but wishes to go home today. Has been dialyzed today. Eating regular diet, no stool today. The plan is to order small bowel x-ray, and stat CBC and CMP. Patient has been examined and interviewed. All laboratory values have been reviewed. Course of action discussed with the nursing staff and the family. PHYSICAL EXAMINATION: GENERAL: Well developed, obese, well nourished, alert & oriented x 3, in no acute distress SKIN: No lesions, pale, no stigmata chronic liver disease, no evidence of bleeding diathesis LYMPHATIC: No palpable lymphadenopathy. HEAD: Normocephalic, atraumatic, no tenderness. EYES: Pupils equal reactive to light and accommodation, full extraocular movements, sclera clear, non-icteric, no discharge. EARS/NOSE AND THROAT: Ears normal, nose normal, oropharynx normal, oral membranes well hydrated without lesions. NECK: Supple, no masses, thyroid normal, JVP within normal limits, carotids normal without bruits. CHEST: Inspection within normal limits. Lung sounds are clear on auscultation CARDIOVASCULAR: Heart: Regular rate and rhythm, no murmurs, gallops or rubs. Peripheral pulses present within normal limits, no cyanosis, clubbing or edemas. No pulsatile abdominal mass RESPIRATORY: Lungs clear to auscultation and percussion, no wheezing, no rubs GASTROINTESTINAL AND LIVER: Abdomen: Soft, obese, non tenderness, non-distended , no hernias, no masses, no organomegaly, no ascites, no guarding, no rebound tenderness, normoactive bowel sounds. Rectal: Deferred. GENITOURINARY: Male genitalia within normal limits. EXTREMITIES: No cyanosis, clubbing or edema. Problems: Exam/Review of Systems Vital Signs Vitals Vital Signs Date Time Temp Pulse Resp B/P Pulse Ox O2 Delivery O2 Flow Rate FiO2 05/07/17 12:26 98.0 77 16 129/94 94 05/07/17 10:05 21 05/05/17 08:32 Nasal Cannula 2.0 Intake and Output 05/06/17 05/06/17 05/07/17 15:00 23:00 07:00 Intake Total 700 ml 500 ml Balance 700 ml 500 ml Results Result Diagram: 05/05/17 0549 05/05/17 0549 Results 24 hrs Laboratory Tests Test 05/06/17 17:24 05/06/17 20:16 05/07/17 08:17 05/07/17 12:18 Bedside Glucose 139 102 134 140 Medications Medications Current Medications Ondansetron HCl (Zofran Tab) 4 mg Q6H PRN PO NAUSEA AND/OR VOMITING; Start at 23:00 Nitroglycerin (Nitroglycerin (Sl Tab) 0.4 Mg) 1 tab Q5M PRN SL CHEST PAIN; Start 04/24/17 at 23:00 Docusate Sodium (Colace) 100 mg Q12H PRN PO CONSTIPATION; Start 04/24/17 at 23 :00 Bisacodyl (Dulcolax) 5 mg DAILY PRN PO CONSTIPATION; Start 04/24/17 at 23:00 Atorvastatin Calcium (Lipitor) 80 mg QHS PO Last administered on 05/06/17 21: 31; Admin Dose 80 MG; Start 04/25/17 at 21:00 Ergocalciferol (Drisdol) 50,000 unit Mo@09 PO Last administered on 05/06/17 09:13; Admin Dose 50,000 UNIT; Start 04/24/17 at 23:00 Ferrous Sulfate (Ferrous Sulfate (Ec)) 325 mg DAILY PO Last administered on 09:39; Admin Dose 325 MG; Start 04/25/17 at 09:00 Multivit/Ca Carb/ B Cmplx/FA/Prenat (Isabel-Brenda) 1 tab DAILY PO Last administered on 05/07/17 09:39; Admin Dose 1 TAB; Start 04/25/17 at 09:00 Pantoprazole (Protonix Tab) 40 mg DAILY@06 PO Last administered on 05/07/17 05:37; Admin Dose 40 MG; Start 04/25/17 at 06:00 Guaifenesin/ Dextromethorphan (Mucinex Dm) 1 tab BID PO Last administered on 09:37; Admin Dose 1 TAB; Start 04/25/17 at 03:15 Diagnostic Test (Pha) (Accu-Chek) 1 ea 02 XX Last administered on 05/04/17 02: 00; Admin Dose 1 EA; Start 04/26/17 at 02:00 Citric Acid/ Sodium Citrate (Bicitra) 30 ml TID PO Last administered on 14:18; Admin Dose 30 ML; Start 04/25/17 at 13:00 Aspirin (Aspirin) 81 mg DAILY PO Last administered on 04/30/17 10:05; Admin Dose 81 MG; Start 04/25/17 at 12:00; Status Future Hold Heparin Sodium (Porcine) (Heparin (5000 Units/0.5 ml)) 5,000 unit BID SC Last administered on 05/07/17 09:51; Admin Dose 5,000 UNIT; Start 04/26/17 at 09:00 Miscellaneous Information 1 ea NOTE XX Last administered on 04/30/17 17:45; Admin Dose 1 EA; Start 04/25/17 at 12:00 Glucose (Glutose) 15 gm Q15M PRN PO DECREASED GLUCOSE; Start 04/25/17 at 12:00 Glucose (Glutose) 22.5 gm Q15M PRN PO DECREASED GLUCOSE; Start 04/25/17 at 12: 00 Dextrose (D50w Syringe) 25 ml Q15M PRN IV DECREASED GLUCOSE; Start 04/25/17 at 12:00 Dextrose (D50w Syringe) 50 ml Q15M PRN IV DECREASED GLUCOSE; Start 04/25/17 at 12:00 Glucagon (Glucagen) 1 mg Q15M PRN IM DECREASED GLUCOSE; Start 04/25/17 at 12: 00 Glucose (Glutose) 15 gm Q15M PRN BUCCAL DECREASED GLUCOSE; Start 04/25/17 at 12:00 Furosemide (Lasix) 20 mg BID IV Last administered on 05/07/17 09:47; Admin Dose 20 MG; Start 04/26/17 at 09:00 Fish Oil (Fish Oil) 2,000 mg BID PO Last administered on 05/07/17 09:37; Admin Dose 2,000 MG; Start 04/27/17 at 21:00 EZETIMIBE (Zetia) 10 mg DAILY PO Last administered on 05/07/17 09:39; Admin Dose 10 MG; Start 04/28/17 at 09:00 Morphine Sulfate (morphine) 2 mg Q4H PRN IV Pain Last administered on 10:24; Admin Dose 2 MG; Start 04/28/17 at 09:00 Linagliptin (Tradjenta) 5 mg DAILY PO Last administered on 05/07/17 09:39; Admin Dose 5 MG; Start 04/28/17 at 12:00 Tiotropium [place] (Spiriva) 1 inh DAILY INH Last administered on 05/07/17 12 :13; Admin Dose 1 INH; Start 04/30/17 at 13:30 Salmeterol Xinafoate/ Fluticasone (Advair 250/50 Diskus) 1 inh BID INH Last administered on 05/07/17 10:37; Admin Dose 1 INH; Start 04/30/17 at 21:00 Amlodipine Besylate (Norvasc) 5 mg BID PO Last administered on 05/07/17 09:39 ; Admin Dose 5 MG; Start 05/03/17 at 21:00 Carvedilol (Coreg) 3.125 mg BID PO Last administered on 05/06/17 21:32; Admin Dose 3.125 MG; Start 05/04/17 at 09:00 Insulin Glargine (Lantus) 32 unit BID SC Last administered on 05/07/17 10:38 ; Admin Dose 32 UNIT; Start 05/06/17 at 21:00 Copies To: CC: GERMÁN WAY MD, ANASTASIA NP May 07, 2017 15:57
--- NOTE | 2017-05-07 16:21 | PN ---
Date/Time of Note Date/Time of Note DATE: 05/07/17 TIME: 16:20 Assessment/Plan VTE Prophylaxis VTE Prophylaxis Intervention: heparin Lines/Catheters IV C[facility]ter Type (from [facility]): permacath Urinary Cath still in place: No Assessment/Plan Chief Complaint/Hosp Course 1. Acute respiratory failure. Hypoxic. Most probably secondary to underlying fluid overload and COPD exacerbation. Continue HD per nephrology. Continue inhaled bronchodilators. Continue supplemental oxygen. 2. Intermittent Mobitz type I block. Patient asymptomatic. Cardiology following. 3. Acute on chronic congestive heart failure exacerbation. Diastolic dysfunction. Continue hemodialysis as per nephrology. 4. Moderate distal esophagitis. Continue PPI. 5. Pulmonary hypertension. PA systolic pressure 44 mmHg. Continue supplemental oxygen. 6. CAD. Status post PTCA in the past. Aspirin on hold because anemia.. 7. Metabolic acidosis. Most probably secondary to worsening renal function. On Bicitra as per nephrology. 8. Dyslipidemia. Continue statins. 9. Diabetes mellitus type 2. Continue sliding scale insulin along with basal insulin and pre-meal insulin. Adjust insulin dosing to obtain optimal blood sugar control. Endocrinology following. 10. Essential hypertension. Continue antihypertensives. 11. DVT of the left popliteal vein. The patient has prior history of DVT of lower extremity with the details unclear and he was taking Xarelto at home. This has been discontinued because of worsening renal function. Anticoagulation being held because of symptomatic anemia. 12. Acute on chronic chronic kidney disease. The patient being followed by nephrology. The patient was newly started on hemodialysis. 13. Normocytic, normochromic anemia. Status post multiple units of PRBC transfusion. EGDscopy negative for any active bleeding sites. 14. Fluids, electrolytes, and nutrition. Carbohydrate controlled, low- cholesterol diet. 15. DVT prophylaxis. Subcutaneous heparin. 16. Plan. Continue hemodialysis as per nephrology. Monitor H&H closely. Await clearance from consultants before discharge home. The patient was seen in collaboration with Dr. Jackson. Problems: Subjective 24 Hr Interval Summary Free Text/Dictation Dyspnea. Denies any GI bleeding. Status post hemodialysis today. Exam/Review of Systems Vital Signs Vitals Vital Signs Date Time Temp Pulse Resp B/P Pulse Ox O2 Delivery O2 Flow Rate FiO2 05/07/17 16:12 68 05/07/17 12:26 98.0 16 129/94 94 05/07/17 10:05 21 05/05/17 08:32 Nasal Cannula 2.0 Intake and Output 05/06/17 05/06/17 05/07/17 14:59 22:59 06:59 Intake Total 700 ml 500 ml Balance 700 ml 500 ml Exam General: Obese 66 year-old male lying in bed in no apparent distress. HEENT: Normocephalic, atraumatic. Eyes: Anicteric sclerae, conjunctivae clear. ENT: Nasal septum midline, oral mucosa moist. Neck supple, JVD noticed. Respiratory: Bilaterally diminished breath sounds. No use of accessory muscles of respiration. Cardiovascular: S1, S2 heard. Regular rate and rhythm. Abdomen: Soft, nontender, and nondistended. Bowel sounds positive in all 4 quadrants. Genitourinary: Deferred. Extremities: No cyanosis. B/L 1+ pedal edema. Peripheral pulses palpable. Neurologic: Cranial nerves II through XII grossly intact. The patient is awake, alert, and oriented. Skin: Normal skin turgor. No skin rashes. Results Result Diagram: 05/05/17 0549 05/05/17 0549 Results 24 hrs Laboratory Tests Test 05/06/17 17:24 05/06/17 20:16 05/07/17 08:17 05/07/17 12:18 Bedside Glucose 139 102 134 140 Medications Medications Current Medications Ondansetron HCl (Zofran Tab) 4 mg Q6H PRN PO NAUSEA AND/OR VOMITING; Start at 23:00 Nitroglycerin (Nitroglycerin (Sl Tab) 0.4 Mg) 1 tab Q5M PRN SL CHEST PAIN; Start 04/24/17 at 23:00 Docusate Sodium (Colace) 100 mg Q12H PRN PO CONSTIPATION; Start 04/24/17 at 23 :00 Bisacodyl (Dulcolax) 5 mg DAILY PRN PO CONSTIPATION; Start 04/24/17 at 23:00 Atorvastatin Calcium (Lipitor) 80 mg QHS PO Last administered on 05/06/17 21: 31; Admin Dose 80 MG; Start 04/25/17 at 21:00 Ergocalciferol (Drisdol) 50,000 unit Mo@09 PO Last administered on 05/06/17 09:13; Admin Dose 50,000 UNIT; Start 04/24/17 at 23:00 Ferrous Sulfate (Ferrous Sulfate (Ec)) 325 mg DAILY PO Last administered on 09:39; Admin Dose 325 MG; Start 04/25/17 at 09:00 Multivit/Ca Carb/ B Cmplx/FA/Prenat (Isabel-Brenda) 1 tab DAILY PO Last administered on 05/07/17 09:39; Admin Dose 1 TAB; Start 04/25/17 at 09:00 Pantoprazole (Protonix Tab) 40 mg DAILY@06 PO Last administered on 05/07/17 05:37; Admin Dose 40 MG; Start 04/25/17 at 06:00 Guaifenesin/ Dextromethorphan (Mucinex Dm) 1 tab BID PO Last administered on 09:37; Admin Dose 1 TAB; Start 04/25/17 at 03:15 Diagnostic Test (Pha) (Accu-Chek) 1 ea 02 XX Last administered on 05/04/17 02: 00; Admin Dose 1 EA; Start 04/26/17 at 02:00 Citric Acid/ Sodium Citrate (Bicitra) 30 ml TID PO Last administered on 14:18; Admin Dose 30 ML; Start 04/25/17 at 13:00 Aspirin (Aspirin) 81 mg DAILY PO Last administered on 04/30/17 10:05; Admin Dose 81 MG; Start 04/25/17 at 12:00; Status Future Hold Heparin Sodium (Porcine) (Heparin (5000 Units/0.5 ml)) 5,000 unit BID SC Last administered on 05/07/17 09:51; Admin Dose 5,000 UNIT; Start 04/26/17 at 09:00 Miscellaneous Information 1 ea NOTE XX Last administered on 04/30/17 17:45; Admin Dose 1 EA; Start 04/25/17 at 12:00 Glucose (Glutose) 15 gm Q15M PRN PO DECREASED GLUCOSE; Start 04/25/17 at 12:00 Glucose (Glutose) 22.5 gm Q15M PRN PO DECREASED GLUCOSE; Start 04/25/17 at 12: 00 Dextrose (D50w Syringe) 25 ml Q15M PRN IV DECREASED GLUCOSE; Start 04/25/17 at 12:00 Dextrose (D50w Syringe) 50 ml Q15M PRN IV DECREASED GLUCOSE; Start 04/25/17 at 12:00 Glucagon (Glucagen) 1 mg Q15M PRN IM DECREASED GLUCOSE; Start 04/25/17 at 12: 00 Glucose (Glutose) 15 gm Q15M PRN BUCCAL DECREASED GLUCOSE; Start 04/25/17 at 12:00 Furosemide (Lasix) 20 mg BID IV Last administered on 05/07/17 09:47; Admin Dose 20 MG; Start 04/26/17 at 09:00 Fish Oil (Fish Oil) 2,000 mg BID PO Last administered on 05/07/17 09:37; Admin Dose 2,000 MG; Start 04/27/17 at 21:00 EZETIMIBE (Zetia) 10 mg DAILY PO Last administered on 05/07/17 09:39; Admin Dose 10 MG; Start 04/28/17 at 09:00 Morphine Sulfate (morphine) 2 mg Q4H PRN IV Pain Last administered on 10:24; Admin Dose 2 MG; Start 04/28/17 at 09:00 Linagliptin (Tradjenta) 5 mg DAILY PO Last administered on 05/07/17 09:39; Admin Dose 5 MG; Start 04/28/17 at 12:00 Tiotropium [place] (Spiriva) 1 inh DAILY INH Last administered on 05/07/17 12 :13; Admin Dose 1 INH; Start 04/30/17 at 13:30 Salmeterol Xinafoate/ Fluticasone (Advair 250/50 Diskus) 1 inh BID INH Last administered on 05/07/17 10:37; Admin Dose 1 INH; Start 04/30/17 at 21:00 Amlodipine Besylate (Norvasc) 5 mg BID PO Last administered on 05/07/17 09:39 ; Admin Dose 5 MG; Start 05/03/17 at 21:00 Carvedilol (Coreg) 3.125 mg BID PO Last administered on 05/06/17 21:32; Admin Dose 3.125 MG; Start 05/04/17 at 09:00 Insulin Glargine (Lantus) 32 unit BID SC Last administered on 05/07/17 10:38 ; Admin Dose 32 UNIT; Start 05/06/17 at 21:00 NANY PRIEST NP May 07, 2017 16:21
--- NOTE | 2017-05-07 16:22 | CONS ---
Date/Time of Note Date/Time of Note DATE: 05/07/17 TIME: 16:20 Assessment/Plan Assessment/Plan Additional Assessment/Plan 1. 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 H/o CKD due to diabetic nehropathy as per pt was stage IV/V with eGFR 15 as outpatient 3. Acute hyperkalemia due to TROY on CKD - resolved after pt gets started on HD 4. Metabolic acidosis due to worsenign renal failure 5. H/ CAD S/p previous coronary angiogram as per patient 6. Hypertension 7. Type II DM 8. Hyperlipidemia 9. Acute NSETMI due to CHF 10. severe anemia despite getting PRBC, concerned abotu GI bleeding, Plan : hepatitis C antibody positive, Hepatitis A antibody positive EGD showed distal esophagitis, s/p Hd today 2.3 L removed, [facility] [place] [facility] will plan for HD tomorrow if pt stays here before going home Renal US showed small size kidneys, no hydronephrosis, c/w CKD on Epogen for anemia will follow up Consultation Date/Type/Reason Admit Date/Time Apr 24, 2017 at 19:05 Initial Consult Date 04/25/17 Type of Consultation: NEPHROLOGY Referring Provider: NANY PRIEST JACK SETTER Exam/Review of Systems Vital Signs Vitals Vital Signs Date Time Temp Pulse Resp B/P Pulse Ox O2 Delivery O2 Flow Rate FiO2 05/07/17 16:12 68 05/07/17 12:26 98.0 16 129/94 94 05/07/17 10:05 21 05/05/17 08:32 Nasal Cannula 2.0 Intake and Output 05/06/17 05/06/17 05/07/17 15:00 23:00 07:00 Intake Total 700 ml 500 ml Balance 700 ml 500 ml Results Result Diagram: 05/05/17 0549 05/05/17 0549 Results 24 hrs Laboratory Tests Test 05/06/17 17:24 05/06/17 20:16 05/07/17 08:17 05/07/17 12:18 Bedside Glucose 139 102 134 140 Medications Medications Current Medications Ondansetron HCl (Zofran Tab) 4 mg Q6H PRN PO NAUSEA AND/OR VOMITING; Start at 23:00 Nitroglycerin (Nitroglycerin (Sl Tab) 0.4 Mg) 1 tab Q5M PRN SL CHEST PAIN; Start 04/24/17 at 23:00 Docusate Sodium (Colace) 100 mg Q12H PRN PO CONSTIPATION; Start 04/24/17 at 23 :00 Bisacodyl (Dulcolax) 5 mg DAILY PRN PO CONSTIPATION; Start 04/24/17 at 23:00 Atorvastatin Calcium (Lipitor) 80 mg QHS PO Last administered on 05/06/17 21: 31; Admin Dose 80 MG; Start 04/25/17 at 21:00 Ergocalciferol (Drisdol) 50,000 unit Mo@09 PO Last administered on 05/06/17 09:13; Admin Dose 50,000 UNIT; Start 04/24/17 at 23:00 Ferrous Sulfate (Ferrous Sulfate (Ec)) 325 mg DAILY PO Last administered on 09:39; Admin Dose 325 MG; Start 04/25/17 at 09:00 Multivit/Ca Carb/ B Cmplx/FA/Prenat (Isabel-Brenda) 1 tab DAILY PO Last administered on 05/07/17 09:39; Admin Dose 1 TAB; Start 04/25/17 at 09:00 Pantoprazole (Protonix Tab) 40 mg DAILY@06 PO Last administered on 05/07/17 05:37; Admin Dose 40 MG; Start 04/25/17 at 06:00 Guaifenesin/ Dextromethorphan (Mucinex Dm) 1 tab BID PO Last administered on 09:37; Admin Dose 1 TAB; Start 04/25/17 at 03:15 Diagnostic Test (Pha) (Accu-Chek) 1 ea 02 XX Last administered on 05/04/17 02: 00; Admin Dose 1 EA; Start 04/26/17 at 02:00 Citric Acid/ Sodium Citrate (Bicitra) 30 ml TID PO Last administered on 14:18; Admin Dose 30 ML; Start 04/25/17 at 13:00 Aspirin (Aspirin) 81 mg DAILY PO Last administered on 04/30/17 10:05; Admin Dose 81 MG; Start 04/25/17 at 12:00; Status Future Hold Heparin Sodium (Porcine) (Heparin (5000 Units/0.5 ml)) 5,000 unit BID SC Last administered on 05/07/17 09:51; Admin Dose 5,000 UNIT; Start 04/26/17 at 09:00 Miscellaneous Information 1 ea NOTE XX Last administered on 04/30/17 17:45; Admin Dose 1 EA; Start 04/25/17 at 12:00 Glucose (Glutose) 15 gm Q15M PRN PO DECREASED GLUCOSE; Start 04/25/17 at 12:00 Glucose (Glutose) 22.5 gm Q15M PRN PO DECREASED GLUCOSE; Start 04/25/17 at 12: 00 Dextrose (D50w Syringe) 25 ml Q15M PRN IV DECREASED GLUCOSE; Start 04/25/17 at 12:00 Dextrose (D50w Syringe) 50 ml Q15M PRN IV DECREASED GLUCOSE; Start 04/25/17 at 12:00 Glucagon (Glucagen) 1 mg Q15M PRN IM DECREASED GLUCOSE; Start 04/25/17 at 12: 00 Glucose (Glutose) 15 gm Q15M PRN BUCCAL DECREASED GLUCOSE; Start 04/25/17 at 12:00 Furosemide (Lasix) 20 mg BID IV Last administered on 05/07/17 09:47; Admin Dose 20 MG; Start 04/26/17 at 09:00 Fish Oil (Fish Oil) 2,000 mg BID PO Last administered on 05/07/17 09:37; Admin Dose 2,000 MG; Start 04/27/17 at 21:00 EZETIMIBE (Zetia) 10 mg DAILY PO Last administered on 05/07/17 09:39; Admin Dose 10 MG; Start 04/28/17 at 09:00 Morphine Sulfate (morphine) 2 mg Q4H PRN IV Pain Last administered on 10:24; Admin Dose 2 MG; Start 04/28/17 at 09:00 Linagliptin (Tradjenta) 5 mg DAILY PO Last administered on 05/07/17 09:39; Admin Dose 5 MG; Start 04/28/17 at 12:00 Tiotropium [place] (Spiriva) 1 inh DAILY INH Last administered on 05/07/17 12 :13; Admin Dose 1 INH; Start 04/30/17 at 13:30 Salmeterol Xinafoate/ Fluticasone (Advair 250/50 Diskus) 1 inh BID INH Last administered on 05/07/17 10:37; Admin Dose 1 INH; Start 04/30/17 at 21:00 Amlodipine Besylate (Norvasc) 5 mg BID PO Last administered on 05/07/17 09:39 ; Admin Dose 5 MG; Start 05/03/17 at 21:00 Carvedilol (Coreg) 3.125 mg BID PO Last administered on 05/06/17 21:32; Admin Dose 3.125 MG; Start 05/04/17 at 09:00 Insulin Glargine (Lantus) 32 unit BID SC Last administered on 05/07/17 10:38 ; Admin Dose 32 UNIT; Start 05/06/17 at 21:00 RAQUEL MCDOWELL MD May 07, 2017 16:22
--- NOTE | 2017-05-07 17:42 | CONS ---
Date/Time of Note Date/Time of Note DATE: 05/07/17 TIME: 17:41 Assessment/Plan Assessment/Plan Additional Assessment/Plan Volume overload Acute kidney injury with history of CKD, started on hemodialysis Acute decompensated diastolic congestive heart failure Diabetes CAD with history of PCI over 10 years ago Hypertension Dyslipidemia History of DVT, previously on anticoagulation Acute blood loss anemia status post blood transfusion Intermittent Mobitz type I, asymptomatic - Aspirin and anticoagulation have been stopped secondary to recurrent anemia requiring blood transfusion. Fluid management via hemodialysis as per our nephrology colleagues. Blood pressure trend overall stable. Continue statin therapy. Consultation Date/Type/Reason Admit Date/Time Apr 24, 2017 at 19:05 Initial Consult Date 04/27/17 Type of Consultation: cv Referring Provider: NANY PRIEST [employer]ESS[employer] 24 HR Interval Summary Free Text/Dictation Denies dizziness, shortness of breath or palpitations Exam/Review of Systems Vital Signs Vitals Vital Signs Date Time Temp Pulse Resp B/P Pulse Ox O2 Delivery O2 Flow Rate FiO2 05/07/17 17:19 93 18 97 21 05/07/17 16:42 96.9 115/56 05/05/17 08:32 Nasal Cannula 2.0 Intake and Output 05/06/17 05/06/17 05/07/17 15:00 23:00 07:00 Intake Total 700 ml 500 ml Balance 700 ml 500 ml Exam Following commands, no apparent distress, family at bedside Constitutional: alert, oriented Head: normocephalic Respiratory: other (Coarse breath sounds bilaterally, no wheezing) Cardiovascular: other (S1-S2 heard), regular rate and rhythm (Occasional irregularities) Gastrointestinal: bowel sounds, non-tender, soft Extremities: edema Results Result Diagram: 05/05/17 0549 05/05/17 0549 Results 24 hrs Laboratory Tests Test 05/06/17 20:16 05/07/17 08:17 05/07/17 12:18 Bedside Glucose 102 134 140 Medications Medications Current Medications Ondansetron HCl (Zofran Tab) 4 mg Q6H PRN PO NAUSEA AND/OR VOMITING; Start at 23:00 Nitroglycerin (Nitroglycerin (Sl Tab) 0.4 Mg) 1 tab Q5M PRN SL CHEST PAIN; Start 04/24/17 at 23:00 Docusate Sodium (Colace) 100 mg Q12H PRN PO CONSTIPATION; Start 04/24/17 at 23 :00 Bisacodyl (Dulcolax) 5 mg DAILY PRN PO CONSTIPATION; Start 04/24/17 at 23:00 Atorvastatin Calcium (Lipitor) 80 mg QHS PO Last administered on 05/06/17 21: 31; Admin Dose 80 MG; Start 04/25/17 at 21:00 Ergocalciferol (Drisdol) 50,000 unit Mo@09 PO Last administered on 05/06/17 09:13; Admin Dose 50,000 UNIT; Start 04/24/17 at 23:00 Ferrous Sulfate (Ferrous Sulfate (Ec)) 325 mg DAILY PO Last administered on 09:39; Admin Dose 325 MG; Start 04/25/17 at 09:00 Multivit/Ca Carb/ B Cmplx/FA/Prenat (Isabel-Brenda) 1 tab DAILY PO Last administered on 05/07/17 09:39; Admin Dose 1 TAB; Start 04/25/17 at 09:00 Pantoprazole (Protonix Tab) 40 mg DAILY@06 PO Last administered on 05/07/17 05:37; Admin Dose 40 MG; Start 04/25/17 at 06:00 Guaifenesin/ Dextromethorphan (Mucinex Dm) 1 tab BID PO Last administered on 09:37; Admin Dose 1 TAB; Start 04/25/17 at 03:15 Diagnostic Test (Pha) (Accu-Chek) 1 ea 02 XX Last administered on 05/04/17 02: 00; Admin Dose 1 EA; Start 04/26/17 at 02:00 Citric Acid/ Sodium Citrate (Bicitra) 30 ml TID PO Last administered on 14:18; Admin Dose 30 ML; Start 04/25/17 at 13:00 Aspirin (Aspirin) 81 mg DAILY PO Last administered on 04/30/17 10:05; Admin Dose 81 MG; Start 04/25/17 at 12:00; Status Future Hold Heparin Sodium (Porcine) (Heparin (5000 Units/0.5 ml)) 5,000 unit BID SC Last administered on 05/07/17 09:51; Admin Dose 5,000 UNIT; Start 04/26/17 at 09:00 Miscellaneous Information 1 ea NOTE XX Last administered on 04/30/17 17:45; Admin Dose 1 EA; Start 04/25/17 at 12:00 Glucose (Glutose) 15 gm Q15M PRN PO DECREASED GLUCOSE; Start 04/25/17 at 12:00 Glucose (Glutose) 22.5 gm Q15M PRN PO DECREASED GLUCOSE; Start 04/25/17 at 12: 00 Dextrose (D50w Syringe) 25 ml Q15M PRN IV DECREASED GLUCOSE; Start 04/25/17 at 12:00 Dextrose (D50w Syringe) 50 ml Q15M PRN IV DECREASED GLUCOSE; Start 04/25/17 at 12:00 Glucagon (Glucagen) 1 mg Q15M PRN IM DECREASED GLUCOSE; Start 04/25/17 at 12: 00 Glucose (Glutose) 15 gm Q15M PRN BUCCAL DECREASED GLUCOSE; Start 04/25/17 at 12:00 Furosemide (Lasix) 20 mg BID IV Last administered on 05/07/17 09:47; Admin Dose 20 MG; Start 04/26/17 at 09:00 Fish Oil (Fish Oil) 2,000 mg BID PO Last administered on 05/07/17 09:37; Admin Dose 2,000 MG; Start 04/27/17 at 21:00 EZETIMIBE (Zetia) 10 mg DAILY PO Last administered on 05/07/17 09:39; Admin Dose 10 MG; Start 04/28/17 at 09:00 Morphine Sulfate (morphine) 2 mg Q4H PRN IV Pain Last administered on 10:24; Admin Dose 2 MG; Start 04/28/17 at 09:00 Linagliptin (Tradjenta) 5 mg DAILY PO Last administered on 05/07/17 09:39; Admin Dose 5 MG; Start 04/28/17 at 12:00 Tiotropium [place] (Spiriva) 1 inh DAILY INH Last administered on 05/07/17 12 :13; Admin Dose 1 INH; Start 04/30/17 at 13:30 Salmeterol Xinafoate/ Fluticasone (Advair 250/50 Diskus) 1 inh BID INH Last administered on 05/07/17 10:37; Admin Dose 1 INH; Start 04/30/17 at 21:00 Amlodipine Besylate (Norvasc) 5 mg BID PO Last administered on 05/07/17 09:39 ; Admin Dose 5 MG; Start 05/03/17 at 21:00 Carvedilol (Coreg) 3.125 mg BID PO Last administered on 05/06/17 21:32; Admin Dose 3.125 MG; Start 05/04/17 at 09:00 Insulin Glargine (Lantus) 32 unit BID SC Last administered on 05/07/17 10:38 ; Admin Dose 32 UNIT; Start 05/06/17 at 21:00 Dell De La Torre DO May 07, 2017 17:42
[2017-05-07 19:22] LABS: ALBUMIN 3.1 g/dl (3.3-4.9); BILIRUBIN,INDIRECT 2.3 mg/dl (0-1.1); BILIRUBIN,TOTAL 2.3 mg/dl (0.2-1.3); CALCIUM 8.4 mg/dl (8.4-10.2); CREATININE 2.95 mg/dl (0.61-1.24); POTASSIUM 4.1 mmol/L (3.5-5.1); TOTAL PROTEIN 6.2 g/dl (6.1-8.1)
[2017-05-07 19:57] LABS: ABNORMAL IP MESSAGE 1; BASOPHIL # 0.1 10^3/ul (0.0-0.1); BASOPHILS % 0.6 % (0.0-2.0); EOSINOPHILS # 0.4 10^3/ul (0.0-0.5); EOSINOPHILS % 3.5 % (0.0-7.0); HEMATOCRIT 22.3 % (42.0-52.0); HEMOGLOBIN 7.4 g/dl (14.0-18.0); LYMPHOCYTES % 10.4 % (15.0-51.0); MEAN CORPUSCULAR HEMOGLOBIN 31.5 pg (29.0-33.0); MEAN CORPUSCULAR HGB CONC 33.2 g/dl (32.0-37.0); MEAN CORPUSCULAR VOLUME 94.9 fl (82.0-101.0); MONOCYTE # 0.6 10^3/ul (0.3-0.9); MONOCYTES % 5.9 % (0.0-11.0); NEUTROPHIL # 7.8 10^3/ul (1.6-7.5); NEUTROPHILS % 78.3 % (39.0-77.0); NUCLEATED RED BLOOD CELLS # 0.1 10^3/ul (0.0-0.0); NUCLEATED RED BLOOD CELLS% 0.7 /100WBC (0.0-0.0); POSITIVE DIFF @See below; RED BLOOD COUNT 2.35 10^6/ul (4.70-6.10); RED CELL DISTRIBUTION WIDTH 18.2 % (11.5-14.5)
[2017-05-07 20:01] LABS: MEAN PLATELET VOLUME 13.3 fl (7.4-10.4); PLATELET COUNT 172 10^3/UL (140-415); WHITE BLOOD COUNT 10.5 10^3/ul (4.8-10.8)
[2017-05-07] MEDS: ATORVASTATIN 80 MG TAB PO SCH (21:16)
[2017-05-08] VITALS (18 sets, daily range): BP systolic 105–158; BP diastolic 56–79; PULSE 67–90; RESP 17–20
[2017-05-08] MEDS: ACCU-CHEK XX SCH (02:00)
[2017-05-08] MEDS: ALBUTEROL/IPRATROPIUM (NEB) 3 ML AMP HHN SCH ×6 (04:11→20:57)
[2017-05-08] MEDS: PANTOPRAZOLE (EC) 40 MG TAB PO SCH (05:56)
[2017-05-08 07:45] LABS: MAGNESIUM 1.7 mg/dl (1.7-2.5); PHOSPHORUS 3.8 mg/dl (2.5-4.9)
[2017-05-08 07:46] LABS: CALCIUM 8.2 mg/dl (8.4-10.2); CREATININE 3.28 mg/dl (0.61-1.24); POTASSIUM 3.8 mmol/L (3.5-5.1)
[2017-05-08] MEDS: INSULIN ASPART [NOVOLOG] 3 ML PEN SC SCH ×8 (07:55→20:21)
[2017-05-08] MEDS: CITRIC ACID/SODIUM CITRATE 15 ML CUP PO SCH ×3 (07:59→20:17)
[2017-05-08] MEDS: FERROUS SULFATE (EC) 325 MG TAB PO SCH (08:00)
[2017-05-08] MEDS: LINAGLIPTIN 5 MG TABLET PO SCH (08:00)
[2017-05-08] MEDS: FUROSEMIDE 20 MG INJ IV SCH ×2 (08:01→20:18)
[2017-05-08] MEDS: AMLODIPINE 5 MG TAB PO SCH ×2 (08:01→20:18)
[2017-05-08] MEDS: TIOTROPIUM 18 MCG CAPSULE INHA DEV INH SCH (08:01)
[2017-05-08] MEDS: GUAIFENESIN/DM (SR) TAB PO SCH ×2 (08:01→20:17)
[2017-05-08] MEDS: FISH OIL 1,000 MG CAP PO SCH ×2 (08:01→20:18)
[2017-05-08] MEDS: MULTIVIT/CA CARB/B CMPLX/FA TAB PO SCH (08:02)
[2017-05-08] MEDS: EZETIMIBE 10 MG TAB PO SCH (08:02)
[2017-05-08] MEDS: SALMETEROL/FLUTICASONE 250/50 INHA INH SCH ×2 (08:03→20:19)
[2017-05-08 08:32] LABS: ABNORMAL IP MESSAGE 1; BASOPHIL # 0.1 10^3/ul (0.0-0.1); BASOPHILS % 0.5 % (0.0-2.0); EOSINOPHILS # 0.4 10^3/ul (0.0-0.5); EOSINOPHILS % 4.3 % (0.0-7.0); HEMATOCRIT 20.3 % (42.0-52.0); LYMPHOCYTES # 1.3 10^3/ul (0.8-2.9); LYMPHOCYTES % 13.5 % (15.0-51.0); MEAN CORPUSCULAR HEMOGLOBIN 31.5 pg (29.0-33.0); MEAN CORPUSCULAR VOLUME 92.7 fl (82.0-101.0); MEAN PLATELET VOLUME 13.1 fl (7.4-10.4); MONOCYTE # 0.7 10^3/ul (0.3-0.9); MONOCYTES % 7.4 % (0.0-11.0); NEUTROPHIL # 7.3 10^3/ul (1.6-7.5); NEUTROPHILS % 73.5 % (39.0-77.0); NUCLEATED RED BLOOD CELLS% 0.4 /100WBC (0.0-0.0); POSITIVE DIFF @See below; RED BLOOD COUNT 2.19 10^6/ul (4.70-6.10); RED CELL DISTRIBUTION WIDTH 18.3 % (11.5-14.5)
[2017-05-08 08:34] LABS: PLATELET COUNT 178 10^3/UL (140-415); WHITE BLOOD COUNT 9.2 10^3/ul (4.8-10.8)
[2017-05-08 08:37] LABS: HEMOGLOBIN 6.9 g/dl (14.0-18.0)
[2017-05-08] MEDS: INSULIN GLARGINE [LANtus] 3 ML PEN SC SCH ×2 (08:51→20:35)
[2017-05-08] MEDS: HEPARIN 5,000 UNIT/0.5 ML VIAL SC SCH (09:02)
[2017-05-08] MEDS ORDERED: IOHEXOL 300MG/ML 150 ML BTL ONE (09:47)
--- NOTE | 2017-05-08 11:24 | RADRPT ---
PROCEDURE: XR small-bowel follow-through. CLINICAL INDICATION: Anemia, pain TECHNIQUE: Multiple overhead radiographs of the abdomen were obtained following the uncomplicated oral administration of 150 cc Omnipaque contrast. No fluoroscopic guidance was utilized. Fluoro time: 0.0 minutes. Number of images/sequences: 10 COMPARISON: CT, 05/04/2017 FINDINGS: The patient is status post partial gastrectomy and gastrojejunostomy. The bowel gas pattern is other pressley unremarkable. Contrast flows easily through the bowel loops into the colon. Contrast reaches t he cecum and ascending colon as early as 15 minutes post contrast administration. No evidence for o bstruction is seen. No bowel wall abnormality is identified. IMPRESSION: 1. No evidence of bowel obstruction. 2. Status post partial gastrectomy and gastrojejunostomy. RPTAT: QQ .Michele Lo MD, MD Date Time Electronically viewed and signed by .Michele Lo MD, on 05/08/2017 11:24 .R/
--- NOTE | 2017-05-08 12:08 | CONS ---
Date/Time of Note Date/Time of Note DATE: 05/08/17 TIME: 12:05 Consult Date/Type/Reason Admit Date/Time Apr 24, 2017 at 19:05 Initial Consult Date 05/01/17 Type of Consultation: Pulm Ordering Provider: NANY PRIEST COORDINATOR [employer] Subjective Drop in HB noted, remains comfortable. Objective Vital Signs Date Time Temp Pulse Resp B/P Pulse Ox O2 Delivery O2 Flow Rate FiO2 05/08/17 11:58 97.9 63 17 105/56 92 05/08/17 09:25 Nasal Cannula 2.0 28 Intake and Output 05/07/17 05/07/17 05/08/17 14:59 22:59 06:59 Intake Total 500 ml 720 ml 500 ml Output Total 3000 ml 300 ml Balance -2500 ml 420 ml 500 ml Exam GENERAL: Elderly Pakistani gentleman comfortable at rest no acute distress VITAL SIGNS: per chart NECK: Supple. No JVD or lymphadenopathy. CARDIAC EXAM: S1, S2. No added sounds or murmurs. CHEST: clear bilaterally, No added sounds, rales or wheezes ABDOMEN: Soft, nontender. No guarding or rebound. EXTREMITIES: No cyanosis, clubbing or edema. NEUROLOGIC: Generalized weakness. No focal deficits. Results/Medications Result Diagram: 05/08/17 0635 05/08/17 0635 Results 24 hrs Laboratory Tests Test 05/07/17 12:18 05/07/17 17:32 05/07/17 17:34 05/07/17 21:11 Bedside Glucose 140 217 357 H White Blood Count 10.5 Red Blood Count 2.35 L Hemoglobin 7.4 L Hematocrit 22.3 L Mean Corpuscular Volume 94.9 Mean Corpuscular Hemoglobin 31.5 Mean Corpuscular Hemoglobin Concent 33.2 Red Cell Distribution Width 18.2 H Platelet Count 172 Mean Platelet Volume 13.3 H Neutrophils % 78.3 H Lymphocytes % 10.4 L Monocytes % 5.9 Eosinophils % 3.5 Basophils % 0.6 Nucleated Red Blood Cells % 0.7 H Neutrophils # 7.8 H Lymphocytes # 1.0 Monocytes # 0.6 Eosinophils # 0.4 Basophils # 0.1 Nucleated Red Blood Cells # 0.1 H Sodium Level 135 Potassium Level 4.1 Chloride Level 97 Carbon Dioxide Level 30 Anion Gap 12 Blood Urea Nitrogen 27 H Creatinine 2.95 H Glucose Level 203 Calcium Level 8.4 Total Bilirubin 2.3 H Direct Bilirubin 0.00 Indirect Bilirubin 2.3 H Aspartate Amino Transf (AST/SGOT) 43 Alanine Aminotransferase (ALT/SGPT) 59 Alkaline Phosphatase 70 Total Protein 6.2 Albumin 3.1 L Globulin 3.10 Albumin/Globulin Ratio 1.00 Test 05/08/17 00:56 05/08/17 06:35 05/08/17 07:54 05/08/17 11:54 Bedside Glucose 222 H 77 78 White Blood Count 9.2 Red Blood Count 2.19 L Hemoglobin 6.9 *L Hematocrit 20.3 L Mean Corpuscular Volume 92.7 Mean Corpuscular Hemoglobin 31.5 Mean Corpuscular Hemoglobin Concent 34.0 Red Cell Distribution Width 18.3 H Platelet Count 178 Mean Platelet Volume 13.1 H Neutrophils % 73.5 Lymphocytes % 13.5 L Monocytes % 7.4 Eosinophils % 4.3 Basophils % 0.5 Nucleated Red Blood Cells % 0.4 H Neutrophils # 7.3 Lymphocytes # 1.3 Monocytes # 0.7 Eosinophils # 0.4 Basophils # 0.1 Nucleated Red Blood Cells # 0.0 Sodium Level 135 Potassium Level 3.8 Chloride Level 100 Carbon Dioxide Level 29 Anion Gap 10 Blood Urea Nitrogen 38 #H Creatinine 3.28 H Glucose Level 71 # Calcium Level 8.2 L Phosphorus Level 3.8 Magnesium Level 1.7 Medications Current Medications Ondansetron HCl (Zofran Tab) 4 mg Q6H PRN PO NAUSEA AND/OR VOMITING; Start at 23:00 Nitroglycerin (Nitroglycerin (Sl Tab) 0.4 Mg) 1 tab Q5M PRN SL CHEST PAIN; Start 04/24/17 at 23:00 Docusate Sodium (Colace) 100 mg Q12H PRN PO CONSTIPATION; Start 04/24/17 at 23 :00 Bisacodyl (Dulcolax) 5 mg DAILY PRN PO CONSTIPATION; Start 04/24/17 at 23:00 Atorvastatin Calcium (Lipitor) 80 mg QHS PO Last administered on 05/07/17 21: 16; Admin Dose 80 MG; Start 04/25/17 at 21:00 Ergocalciferol (Drisdol) 50,000 unit Mo@ PO Last administered on 05/06/17 09:13; Admin Dose 50,000 UNIT; Start 04/24/17 at 23:00 Ferrous Sulfate (Ferrous Sulfate (Ec)) 325 mg DAILY PO Last administered on 08:00; Admin Dose 325 MG; Start 04/25/17 at 09:00 Multivit/Ca Carb/ B Cmplx/FA/Prenat (Isabel-Brenda) 1 tab DAILY PO Last administered on 05/08/17 08:02; Admin Dose 1 TAB; Start 04/25/17 at 09:00 Pantoprazole (Protonix Tab) 40 mg DAILY@06 PO Last administered on 05/08/17 05:56; Admin Dose 40 MG; Start 04/25/17 at 06:00 Guaifenesin/ Dextromethorphan (Mucinex Dm) 1 tab BID PO Last administered on 08:01; Admin Dose 1 TAB; Start 04/25/17 at 03:15 Diagnostic Test (Pha) (Accu-Chek) 1 ea 02 XX Last administered on 05/04/17 02: 00; Admin Dose 1 EA; Start 04/26/17 at 02:00 Citric Acid/ Sodium Citrate (Bicitra) 30 ml TID PO Last administered on 07:59; Admin Dose 30 ML; Start 04/25/17 at 13:00 Aspirin (Aspirin) 81 mg DAILY PO Last administered on 04/30/17 10:05; Admin Dose 81 MG; Start 04/25/17 at 12:00; Status Future Hold Heparin Sodium (Porcine) (Heparin (5000 Units/0.5 ml)) 5,000 unit BID SC Last administered on 05/08/17 09:02; Admin Dose 5,000 UNIT; Start 04/26/17 at 09:00 Miscellaneous Information 1 ea NOTE XX Last administered on 04/30/17 17:45; Admin Dose 1 EA; Start 04/25/17 at 12:00 Glucose (Glutose) 15 gm Q15M PRN PO DECREASED GLUCOSE; Start 04/25/17 at 12:00 Glucose (Glutose) 22.5 gm Q15M PRN PO DECREASED GLUCOSE; Start 04/25/17 at 12: 00 Dextrose (D50w Syringe) 25 ml Q15M PRN IV DECREASED GLUCOSE; Start 04/25/17 at 12:00 Dextrose (D50w Syringe) 50 ml Q15M PRN IV DECREASED GLUCOSE; Start 04/25/17 at 12:00 Glucagon (Glucagen) 1 mg Q15M PRN IM DECREASED GLUCOSE; Start 04/25/17 at 12: 00 Glucose (Glutose) 15 gm Q15M PRN BUCCAL DECREASED GLUCOSE; Start 04/25/17 at 12:00 Furosemide (Lasix) 20 mg BID IV Last administered on 05/08/17 08:01; Admin Dose 20 MG; Start 04/26/17 at 09:00 Fish Oil (Fish Oil) 2,000 mg BID PO Last administered on 05/08/17 08:01; Admin Dose 2,000 MG; Start 04/27/17 at 21:00 EZETIMIBE (Zetia) 10 mg DAILY PO Last administered on 05/08/17 08:02; Admin Dose 10 MG; Start 04/28/17 at 09:00 Morphine Sulfate (morphine) 2 mg Q4H PRN IV Pain Last administered on 10:24; Admin Dose 2 MG; Start 04/28/17 at 09:00 Linagliptin (Tradjenta) 5 mg DAILY PO Last administered on 05/08/17 08:00; Admin Dose 5 MG; Start 04/28/17 at 12:00 Tiotropium [place] (Spiriva) 1 inh DAILY INH Last administered on 05/08/17 08 :01; Admin Dose 1 INH; Start 04/30/17 at 13:30 Salmeterol Xinafoate/ Fluticasone (Advair 250/50 Diskus) 1 inh BID INH Last administered on 05/08/17 08:03; Admin Dose 1 INH; Start 04/30/17 at 21:00 Amlodipine Besylate (Norvasc) 5 mg BID PO Last administered on 05/08/17 08:01 ; Admin Dose 5 MG; Start 05/03/17 at 21:00 Carvedilol (Coreg) 3.125 mg BID PO Last administered on 05/08/17 08:02; Admin Dose 3.125 MG; Start 05/04/17 at 09:00 Insulin Glargine (Lantus) 32 unit BID SC Last administered on 05/08/17 08:51 ; Admin Dose 32 UNIT; Start 05/06/17 at 21:00 Assessment/Plan Chief Complaint/Hosp Course IMP: 1. Pulmonary edema with COPD exacerbation with interval improvement. 2. End-stage renal disease, on hemodialysis. 3. Anemia. Questionable GI bleed with drop in hemoglobin noted. 4. Diabetes. With hyperglycemia secondary to systemic steroids. 5. History of DVT. 6. History of hypertension. RECS: 1. HD/UF 2. Follow K+ 3. Transfuse PRBC 4. DM control as per Endo dc planning once Hb stable and HD arranged. Problems: BROOKE MARIE MD, [facility] May 08, 2017 12:08
--- NOTE | 2017-05-08 14:31 | PN ---
Date/Time of Note Date/Time of Note DATE: 05/08/17 TIME: 14:31 Assessment/Plan VTE Prophylaxis VTE Prophylaxis Intervention: SCD's Lines/Catheters IV Catheter Type (from [facility]): permacath Urinary Cath still in place: No Assessment/Plan Chief Complaint/Hosp Course 1. Acute respiratory failure. Hypoxic. Most probably secondary to underlying fluid overload and COPD exacerbation. Continue HD per nephrology. Continue inhaled bronchodilators. Continue supplemental oxygen. 2. Intermittent Mobitz type I block. Patient asymptomatic. Cardiology following. 3. Acute on chronic congestive heart failure exacerbation. Diastolic dysfunction. Continue hemodialysis as per nephrology. 4. Moderate distal esophagitis. Continue PPI. 5. Pulmonary hypertension. PA systolic pressure 44 mmHg. Continue supplemental oxygen. 6. CAD. Status post PTCA in the past. Aspirin on hold because anemia. 7. Metabolic acidosis. Most probably secondary to worsening renal function. On Bicitra as per nephrology. 8. Dyslipidemia. Continue statins. 9. Diabetes mellitus type 2. Continue sliding scale insulin along with basal insulin and pre-meal insulin. Adjust insulin dosing to obtain optimal blood sugar control. Endocrinology following. 10. Essential hypertension. Continue antihypertensives. 11. DVT of the left popliteal vein. Anticoagulation on hold because of anemia. 12. Acute on chronic chronic kidney disease. The patient being followed by nephrology. The patient was newly started on hemodialysis. 13. Normocytic, normochromic anemia. Status post multiple units of PRBC transfusion. EGDscopy negative for any active bleeding sites. 14. Fluids, electrolytes, and nutrition. Carbohydrate controlled, low- cholesterol diet. 15. DVT prophylaxis. Will hold subcutaneous heparin because of worsening anemia. 16. Plan. Continue hemodialysis as per nephrology. Monitor H&H closely. Transfuse PRBCs as per gastroenterology. The patient was seen in collaboration with Dr. Jackson. Problems: Subjective 24 Hr Interval Summary Free Text/Dictation Denies any dyspnea or chest pain. Exam/Review of Systems Vital Signs Vitals Vital Signs Date Time Temp Pulse Resp B/P Pulse Ox O2 Delivery O2 Flow Rate FiO2 05/08/17 13:53 2.0 05/08/17 13:52 80 20 96 Nasal Cannula 28 05/08/17 11:58 97.9 105/56 Intake and Output 05/07/17 05/07/17 05/08/17 14:59 22:59 06:59 Intake Total 500 ml 720 ml 500 ml Output Total 3000 ml 300 ml Balance -2500 ml 420 ml 500 ml Exam General: Obese 66 year-old male lying in bed in no apparent distress. HEENT: Normocephalic, atraumatic. Eyes: Anicteric sclerae, conjunctivae clear. ENT: Nasal septum midline, oral mucosa moist. Neck supple, JVD noticed. Respiratory: Bilaterally diminished breath sounds. No use of accessory muscles of respiration. Cardiovascular: S1, S2 heard. Regular rate and rhythm. Abdomen: Soft, nontender, and nondistended. Bowel sounds positive in all 4 quadrants. Genitourinary: Deferred. Extremities: No cyanosis. B/L 1+ pedal edema. Peripheral pulses palpable. Neurologic: Cranial nerves II through XII grossly intact. The patient is awake, alert, and oriented. Skin: Normal skin turgor. No skin rashes. Results Result Diagram: 05/08/17 0635 05/08/17 0635 Results 24 hrs Laboratory Tests Test 05/07/17 17:32 05/07/17 17:34 05/07/17 21:11 05/08/17 00:56 Bedside Glucose 217 357 H 222 H White Blood Count 10.5 Red Blood Count 2.35 L Hemoglobin 7.4 L Hematocrit 22.3 L Mean Corpuscular Volume 94.9 Mean Corpuscular Hemoglobin 31.5 Mean Corpuscular Hemoglobin Concent 33.2 Red Cell Distribution Width 18.2 H Platelet Count 172 Mean Platelet Volume 13.3 H Neutrophils % 78.3 H Lymphocytes % 10.4 L Monocytes % 5.9 Eosinophils % 3.5 Basophils % 0.6 Nucleated Red Blood Cells % 0.7 H Neutrophils # 7.8 H Lymphocytes # 1.0 Monocytes # 0.6 Eosinophils # 0.4 Basophils # 0.1 Nucleated Red Blood Cells # 0.1 H Sodium Level 135 Potassium Level 4.1 Chloride Level 97 Carbon Dioxide Level 30 Anion Gap 12 Blood Urea Nitrogen 27 H Creatinine 2.95 H Glucose Level 203 Calcium Level 8.4 Total Bilirubin 2.3 H Direct Bilirubin 0.00 Indirect Bilirubin 2.3 H Aspartate Amino Transf (AST/SGOT) 43 Alanine Aminotransferase (ALT/SGPT) 59 Alkaline Phosphatase 70 Total Protein 6.2 Albumin 3.1 L Globulin 3.10 Albumin/Globulin Ratio 1.00 Test 05/08/17 06:35 05/08/17 07:54 05/08/17 11:54 White Blood Count 9.2 Red Blood Count 2.19 L Hemoglobin 6.9 *L Hematocrit 20.3 L Mean Corpuscular Volume 92.7 Mean Corpuscular Hemoglobin 31.5 Mean Corpuscular Hemoglobin Concent 34.0 Red Cell Distribution Width 18.3 H Platelet Count 178 Mean Platelet Volume 13.1 H Neutrophils % 73.5 Lymphocytes % 13.5 L Monocytes % 7.4 Eosinophils % 4.3 Basophils % 0.5 Nucleated Red Blood Cells % 0.4 H Neutrophils # 7.3 Lymphocytes # 1.3 Monocytes # 0.7 Eosinophils # 0.4 Basophils # 0.1 Nucleated Red Blood Cells # 0.0 Sodium Level 135 Potassium Level 3.8 Chloride Level 100 Carbon Dioxide Level 29 Anion Gap 10 Blood Urea Nitrogen 38 #H Creatinine 3.28 H Glucose Level 71 # Calcium Level 8.2 L Phosphorus Level 3.8 Magnesium Level 1.7 Bedside Glucose 77 78 Medications Medications Current Medications Ondansetron HCl (Zofran Tab) 4 mg Q6H PRN PO NAUSEA AND/OR VOMITING; Start at 23:00 Nitroglycerin (Nitroglycerin (Sl Tab) 0.4 Mg) 1 tab Q5M PRN SL CHEST PAIN; Start 04/24/17 at 23:00 Docusate Sodium (Colace) 100 mg Q12H PRN PO CONSTIPATION; Start 04/24/17 at 23 :00 Bisacodyl (Dulcolax) 5 mg DAILY PRN PO CONSTIPATION; Start 04/24/17 at 23:00 Atorvastatin Calcium (Lipitor) 80 mg QHS PO Last administered on 05/07/17 21: 16; Admin Dose 80 MG; Start 04/25/17 at 21:00 Ergocalciferol (Drisdol) 50,000 unit Mo@09 PO Last administered on 05/06/17 09:13; Admin Dose 50,000 UNIT; Start 04/24/17 at 23:00 Ferrous Sulfate (Ferrous Sulfate (Ec)) 325 mg DAILY PO Last administered on 08:00; Admin Dose 325 MG; Start 04/25/17 at 09:00 Multivit/Ca Carb/ B Cmplx/FA/Prenat (Isabel-Brenda) 1 tab DAILY PO Last administered on 05/08/17 08:02; Admin Dose 1 TAB; Start 04/25/17 at 09:00 Pantoprazole (Protonix Tab) 40 mg DAILY@06 PO Last administered on 05/08/17 05:56; Admin Dose 40 MG; Start 04/25/17 at 06:00 Guaifenesin/ Dextromethorphan (Mucinex Dm) 1 tab BID PO Last administered on 08:01; Admin Dose 1 TAB; Start 04/25/17 at 03:15 Diagnostic Test (Pha) (Accu-Chek) 1 ea 02 XX Last administered on 05/04/17 02: 00; Admin Dose 1 EA; Start 04/26/17 at 02:00 Citric Acid/ Sodium Citrate (Bicitra) 30 ml TID PO Last administered on 13:32; Admin Dose 30 ML; Start 04/25/17 at 13:00 Aspirin (Aspirin) 81 mg DAILY PO Last administered on 04/30/17 10:05; Admin Dose 81 MG; Start 04/25/17 at 12:00; Status Future Hold Heparin Sodium (Porcine) (Heparin (5000 Units/0.5 ml)) 5,000 unit BID SC Last administered on 05/08/17 09:02; Admin Dose 5,000 UNIT; Start 04/26/17 at 09:00 Miscellaneous Information 1 ea NOTE XX Last administered on 04/30/17 17:45; Admin Dose 1 EA; Start 04/25/17 at 12:00 Glucose (Glutose) 15 gm Q15M PRN PO DECREASED GLUCOSE; Start 04/25/17 at 12:00 Glucose (Glutose) 22.5 gm Q15M PRN PO DECREASED GLUCOSE; Start 04/25/17 at 12: 00 Dextrose (D50w Syringe) 25 ml Q15M PRN IV DECREASED GLUCOSE; Start 04/25/17 at 12:00 Dextrose (D50w Syringe) 50 ml Q15M PRN IV DECREASED GLUCOSE; Start 04/25/17 at 12:00 Glucagon (Glucagen) 1 mg Q15M PRN IM DECREASED GLUCOSE; Start 04/25/17 at 12: 00 Glucose (Glutose) 15 gm Q15M PRN BUCCAL DECREASED GLUCOSE; Start 04/25/17 at 12:00 Furosemide (Lasix) 20 mg BID IV Last administered on 05/08/17 08:01; Admin Dose 20 MG; Start 04/26/17 at 09:00 Fish Oil (Fish Oil) 2,000 mg BID PO Last administered on 05/08/17 08:01; Admin Dose 2,000 MG; Start 04/27/17 at 21:00 EZETIMIBE (Zetia) 10 mg DAILY PO Last administered on 05/08/17 08:02; Admin Dose 10 MG; Start 04/28/17 at 09:00 Morphine Sulfate (morphine) 2 mg Q4H PRN IV Pain Last administered on 10:24; Admin Dose 2 MG; Start 04/28/17 at 09:00 Linagliptin (Tradjenta) 5 mg DAILY PO Last administered on 05/08/17 08:00; Admin Dose 5 MG; Start 04/28/17 at 12:00 Tiotropium [place] (Spiriva) 1 inh DAILY INH Last administered on 05/08/17 08 :01; Admin Dose 1 INH; Start 04/30/17 at 13:30 Salmeterol Xinafoate/ Fluticasone (Advair 250/50 Diskus) 1 inh BID INH Last administered on 05/08/17 08:03; Admin Dose 1 INH; Start 04/30/17 at 21:00 Amlodipine Besylate (Norvasc) 5 mg BID PO Last administered on 05/08/17 08:01 ; Admin Dose 5 MG; Start 05/03/17 at 21:00 Carvedilol (Coreg) 3.125 mg BID PO Last administered on 05/08/17 08:02; Admin Dose 3.125 MG; Start 05/04/17 at 09:00 Insulin Glargine (Lantus) 32 unit BID SC Last administered on 05/08/17 08:51 ; Admin Dose 32 UNIT; Start 05/06/17 at 21:00 NANY PRIEST NP May 08, 2017 14:31 ; Admin Dose 32 UNIT; Start 05/06/17 at 21:00 NANY PRIEST NP May 08, 2017 14:31
--- NOTE | 2017-05-08 16:37 | PN ---
Date/Time of Note Date/Time of Note DATE: 05/08/17 TIME: 16:28 Assessment/Plan VTE Prophylaxis VTE Prophylaxis Intervention: ambulation Lines/Catheters IV [facility]atheter Type (from [facility]): permacath Urinary Cath still in place: No Assessment/Plan Chief Complaint/Hosp Course Assessment: Anemia r/o GI bleed EGD 05/03/17 Impression: Moderate distal esophagitis. Post distal gastrectomy Billroth II anastomosis. Moderate bile reflux gastritis. Rule out H. pylori infection. Biopsies obtained Normal afferent and efferent jejunal mucosa Colonoscopy 05/03/17 Impression: Suboptimal examination due to poor preparation No gross lesions present. Moderate-sized internal hemorrhoids. Hypoglycemia Diabetes type 2 Acute kidney injury with history of CKD, on hemodialysis Acute decompensated diastolic congestive heart failure CAD with history of PCI over 10 years ago Hypertension Dyslipidemia History of DVT, previously on anticoagulation Intermittent Mobitz type I, asymptomatic Plan: Stool sample for fecal occult blood test Monitor for signs of GI bleeding Small bowel x-ray - negative Monitor H&H and transfuse for hemoglobin less than 7.5 If no evidence of further bleeding repeat colonoscopy within 6 months to a year is recommended Continue PPI therapy Patient seen in collaboration with Subjective: Patient is feeling tired today. Patient has been hypoglycemic today with blood sugars 47 mg/dl. his Pierre catheter has been DC'd . Currently he is getting hemodialysis. Blood transfusion of 2 units PRBC has been ordered for hemoglobin of 6.9. Eating regular diet since came back from the x-ray, had a bowel movement today. Denies melena or hematochezia. Plan to order stool sample for fecal occult blood . Close monitoring of H&H and blood glucose. Transfuse for hemoglobin less than 7.5. Consider hematology consult for acute anemia non-GI etiology. Patient has been examined and interviewed. All laboratory values and imaging studies have been reviewed. Course of action discussed with the nursing staff and the family. PHYSICAL EXAMINATION: GENERAL: Well developed, obese, well nourished, alert & oriented x 3, in no acute distress SKIN: No lesions, pale, no stigmata chronic liver disease, no evidence of bleeding diathesis LYMPHATIC: No palpable lymphadenopathy. HEAD: Normocephalic, atraumatic, no tenderness. EYES: Pupils equal reactive to light and accommodation, full extraocular movements, sclera clear, non-icteric, no discharge. EARS/NOSE AND THROAT: Ears normal, nose normal, oropharynx normal, oral membranes well hydrated without lesions. NECK: Supple, no masses, thyroid normal, JVP within normal limits, carotids normal without bruits. CHEST: Inspection within normal limits. Lung sounds are clear on auscultation CARDIOVASCULAR: Heart: Regular rate and rhythm, no murmurs, gallops or rubs. Peripheral pulses present within normal limits, no cyanosis, clubbing or edemas. No pulsatile abdominal mass RESPIRATORY: Lungs clear to auscultation and percussion, no wheezing, no rubs GASTROINTESTINAL AND LIVER: Abdomen: Soft, obese, non tender, non-distended, no hernias, no masses, no organomegaly, no ascites, no guarding, no rebound tenderness, normoactive bowel sounds. Rectal: Deferred. GENITOURINARY: Male genitalia within normal limits. EXTREMITIES: No cyanosis, clubbing or edema. Problems: Exam/Review of Systems Vital Signs Vitals Vital Signs Date Time Temp Pulse Resp B/P Pulse Ox O2 Delivery O2 Flow Rate FiO2 05/08/17 15:45 97.4 76 17 158/73 100 05/08/17 13:53 2.0 05/08/17 13:52 Nasal Cannula 28 Intake and Output 05/07/17 05/07/17 05/08/17 15:00 23:00 07:00 Intake Total 500 ml 720 ml 500 ml Output Total 3000 ml 300 ml Balance -2500 ml 420 ml 500 ml Results Result Diagram: 05/08/17 0635 05/08/17 0635 Results 24 hrs Laboratory Tests Test 05/07/17 17:32 05/07/17 17:34 05/07/17 21:11 05/08/17 00:56 Bedside Glucose 217 357 H 222 H White Blood Count 10.5 Red Blood Count 2.35 L Hemoglobin 7.4 L Hematocrit 22.3 L Mean Corpuscular Volume 94.9 Mean Corpuscular Hemoglobin 31.5 Mean Corpuscular Hemoglobin Concent 33.2 Red Cell Distribution Width 18.2 H Platelet Count 172 Mean Platelet Volume 13.3 H Neutrophils % 78.3 H Lymphocytes % 10.4 L Monocytes % 5.9 Eosinophils % 3.5 Basophils % 0.6 Nucleated Red Blood Cells % 0.7 H Neutrophils # 7.8 H Lymphocytes # 1.0 Monocytes # 0.6 Eosinophils # 0.4 Basophils # 0.1 Nucleated Red Blood Cells # 0.1 H Sodium Level 135 Potassium Level 4.1 Chloride Level 97 Carbon Dioxide Level 30 Anion Gap 12 Blood Urea Nitrogen 27 H Creatinine 2.95 H Glucose Level 203 Calcium Level 8.4 Total Bilirubin 2.3 H Direct Bilirubin 0.00 Indirect Bilirubin 2.3 H Aspartate Amino Transf (AST/SGOT) 43 Alanine Aminotransferase (ALT/SGPT) 59 Alkaline Phosphatase 70 Total Protein 6.2 Albumin 3.1 L Globulin 3.10 Albumin/Globulin Ratio 1.00 Test 05/08/17 06:35 05/08/17 07:54 05/08/17 11:54 05/08/17 15:40 White Blood Count 9.2 Red Blood Count 2.19 L Hemoglobin 6.9 *L Hematocrit 20.3 L Mean Corpuscular Volume 92.7 Mean Corpuscular Hemoglobin 31.5 Mean Corpuscular Hemoglobin Concent 34.0 Red Cell Distribution Width 18.3 H Platelet Count 178 Mean Platelet Volume 13.1 H Neutrophils % 73.5 Lymphocytes % 13.5 L Monocytes % 7.4 Eosinophils % 4.3 Basophils % 0.5 Nucleated Red Blood Cells % 0.4 H Neutrophils # 7.3 Lymphocytes # 1.3 Monocytes # 0.7 Eosinophils # 0.4 Basophils # 0.1 Nucleated Red Blood Cells # 0.0 Sodium Level 135 Potassium Level 3.8 Chloride Level 100 Carbon Dioxide Level 29 Anion Gap 10 Blood Urea Nitrogen 38 #H Creatinine 3.28 H Glucose Level 71 # Calcium Level 8.2 L Phosphorus Level 3.8 Magnesium Level 1.7 Bedside Glucose 77 78 47 *L Test 05/08/17 16:01 Bedside Glucose 46 *L Medications Medications Current Medications Ondansetron HCl (Zofran Tab) 4 mg Q6H PRN PO NAUSEA AND/OR VOMITING; Start at 23:00 Nitroglycerin (Nitroglycerin (Sl Tab) 0.4 Mg) 1 tab Q5M PRN SL CHEST PAIN; Start 04/24/17 at 23:00 Docusate Sodium (Colace) 100 mg Q12H PRN PO CONSTIPATION; Start 04/24/17 at 23 :00 Bisacodyl (Dulcolax) 5 mg DAILY PRN PO CONSTIPATION; Start 04/24/17 at 23:00 Atorvastatin Calcium (Lipitor) 80 mg QHS PO Last administered on 05/07/17 21: 16; Admin Dose 80 MG; Start 04/25/17 at 21:00 Ergocalciferol (Drisdol) 50,000 unit Mo@09 PO Last administered on 05/06/17 09:13; Admin Dose 50,000 UNIT; Start 04/24/17 at 23:00 Ferrous Sulfate (Ferrous Sulfate (Ec)) 325 mg DAILY PO Last administered on 08:00; Admin Dose 325 MG; Start 04/25/17 at 09:00 Multivit/Ca Carb/ B Cmplx/FA/Prenat (Isabel-Brenda) 1 tab DAILY PO Last administered on 05/08/17 08:02; Admin Dose 1 TAB; Start 04/25/17 at 09:00 Pantoprazole (Protonix Tab) 40 mg DAILY@06 PO Last administered on 05/08/17 05:56; Admin Dose 40 MG; Start 04/25/17 at 06:00 Guaifenesin/ Dextromethorphan (Mucinex Dm) 1 tab BID PO Last administered on 08:01; Admin Dose 1 TAB; Start 04/25/17 at 03:15 Diagnostic Test (Pha) (Accu-Chek) 1 ea 02 XX Last administered on 05/04/17 02: 00; Admin Dose 1 EA; Start 04/26/17 at 02:00 Citric Acid/ Sodium Citrate (Bicitra) 30 ml TID PO Last administered on 13:32; Admin Dose 30 ML; Start 04/25/17 at 13:00 Aspirin (Aspirin) 81 mg DAILY PO Last administered on 04/30/17 10:05; Admin Dose 81 MG; Start 04/25/17 at 12:00; Status Future Hold Heparin Sodium (Porcine) (Heparin (5000 Units/0.5 ml)) 5,000 unit BID SC Last administered on 05/08/17 09:02; Admin Dose 5,000 UNIT; Start 04/26/17 at 09:00 ; Status Future Hold Miscellaneous Information 1 ea NOTE XX Last administered on 04/30/17 17:45; Admin Dose 1 EA; Start 04/25/17 at 12:00 Glucose (Glutose) 15 gm Q15M PRN PO DECREASED GLUCOSE; Start 04/25/17 at 12:00 Glucose (Glutose) 22.5 gm Q15M PRN PO DECREASED GLUCOSE; Start 04/25/17 at 12: 00 Dextrose (D50w Syringe) 25 ml Q15M PRN IV DECREASED GLUCOSE Last administered on 05/08/17 16:08; Admin Dose 25 ML; Start 04/25/17 at 12:00 Dextrose (D50w Syringe) 50 ml Q15M PRN IV DECREASED GLUCOSE; Start 04/25/17 at 12:00 Glucagon (Glucagen) 1 mg Q15M PRN IM DECREASED GLUCOSE; Start 04/25/17 at 12: 00 Glucose (Glutose) 15 gm Q15M PRN BUCCAL DECREASED GLUCOSE; Start 04/25/17 at 12:00 Furosemide (Lasix) 20 mg BID IV Last administered on 05/08/17 08:01; Admin Dose 20 MG; Start 04/26/17 at 09:00 Fish Oil (Fish Oil) 2,000 mg BID PO Last administered on 05/08/17 08:01; Admin Dose 2,000 MG; Start 04/27/17 at 21:00 EZETIMIBE (Zetia) 10 mg DAILY PO Last administered on 05/08/17 08:02; Admin Dose 10 MG; Start 04/28/17 at 09:00 Morphine Sulfate (morphine) 2 mg Q4H PRN IV Pain Last administered on 10:24; Admin Dose 2 MG; Start 04/28/17 at 09:00 Linagliptin (Tradjenta) 5 mg DAILY PO Last administered on 05/08/17 08:00; Admin Dose 5 MG; Start 04/28/17 at 12:00 Tiotropium [place] (Spiriva) 1 inh DAILY INH Last administered on 05/08/17 08 :01; Admin Dose 1 INH; Start 04/30/17 at 13:30 Salmeterol Xinafoate/ Fluticasone (Advair 250/50 Diskus) 1 inh BID INH Last administered on 05/08/17 08:03; Admin Dose 1 INH; Start 04/30/17 at 21:00 Amlodipine Besylate (Norvasc) 5 mg BID PO Last administered on 05/08/17 08:01 ; Admin Dose 5 MG; Start 05/03/17 at 21:00 Carvedilol (Coreg) 3.125 mg BID PO Last administered on 05/08/17 08:02; Admin Dose 3.125 MG; Start 05/04/17 at 09:00 Insulin Glargine (Lantus) 32 unit BID SC Last administered on 05/08/17 08:51 ; Admin Dose 32 UNIT; Start 05/06/17 at 21:00 Copies To: CC: GERMÁN WAY MD, ANASTASIA NP May 08, 2017 16:37
--- NOTE | 2017-05-08 17:57 | CONS ---
Date/Time of Note Date/Time of Note DATE: 05/08/17 TIME: 17:53 Assessment/Plan Assessment/Plan Chief Complaint/Hosp Course Pleasant Litzy gentleman with his family present in the room reporting a 30 year history of diabetes mellitus type 2. He had been on oral agent therapy but as his kidneys declined he was transitioned over to a multiple daily injection regimen using Lantus and NovoLog. He intermittently takes full dose Januvia 100 mg despite his renal dysfunction Problems: (1) Diabetes mellitus type 2 in obese Status: Chronic Comment: This control is modestly overcontrolled at the present time. Back off his insulin dosing and follow him along. (2) End stage renal disease on dialysis due to type 2 diabetes mellitus Status: Chronic Comment: Patient remains on hemodialysis. (3) Hyperlipidemia associated with type 2 diabetes mellitus Status: Chronic Comment: Continue with statin therapy. (4) Normocytic anemia Status: Acute Comment: Patient's anemia has again recurred despite multiple transfusions. The upper endoscopy was not enormously relieving lower endoscopy was in and it was an inadequate preparation. I am going to go ahead and order a stool for occult blood as well as a haptoglobin and do more formalized evaluation of this as her primary care team (5) COPD (chronic obstructive pulmonary disease) Status: Chronic Comment: Adequate control Qualifiers: COPD type: emphysema Emphysema type: unspecified Qualified Code: J43.9 - Pulmonary emphysema, unspecified emphysema type (6) Essential hypertension Status: Chronic Comment: Adequate control Consultation Date/Type/Reason Admit Date/Time Apr 24, 2017 at 19:05 Initial Consult Date 04/27/17 Type of Consultation: Endocrinology Reason for Consultation Diabetes mellitus on multiple daily injection regimen with end-stage renal disease retinopathy. Please note the patient has had significant recurrent anemia. Referring Provider: NAYN PRIEST NP 24 HR Interval Summary Free Text/Dictation Patient did have a hypoglycemic reaction today after lunch of mealtime dosing. Exam/Review of Systems Vital Signs Vitals Vital Signs Date Time Temp Pulse Resp B/P Pulse Ox O2 Delivery O2 Flow Rate FiO2 05/08/17 17:21 82 20 99 Nasal Cannula 2.0 28 05/08/17 15:45 97.4 158/73 Intake and Output 05/07/17 05/07/17 05/08/17 15:00 23:00 07:00 Intake Total 500 ml 720 ml 500 ml Output Total 3000 ml 300 ml Balance -2500 ml 420 ml 500 ml Exam Pale appearing male lying in bed Eyes: EOMI, nl conjunctiva, nl lids Neck: non-tender, supple Respiratory: clear to auscultation, normal air movement Cardiovascular: nl pulses, regular rate and rhythm Results Result Diagram: 05/08/17 0635 05/08/17 0635 Results 24 hrs Laboratory Tests Test 05/07/17 21:11 05/08/17 00:56 05/08/17 06:35 05/08/17 07:54 Bedside Glucose 357 H 222 H 77 White Blood Count 9.2 Red Blood Count 2.19 L Hemoglobin 6.9 *L Hematocrit 20.3 L Mean Corpuscular Volume 92.7 Mean Corpuscular Hemoglobin 31.5 Mean Corpuscular Hemoglobin Concent 34.0 Red Cell Distribution Width 18.3 H Platelet Count 178 Mean Platelet Volume 13.1 H Neutrophils % 73.5 Lymphocytes % 13.5 L Monocytes % 7.4 Eosinophils % 4.3 Basophils % 0.5 Nucleated Red Blood Cells % 0.4 H Neutrophils # 7.3 Lymphocytes # 1.3 Monocytes # 0.7 Eosinophils # 0.4 Basophils # 0.1 Nucleated Red Blood Cells # 0.0 Sodium Level 135 Potassium Level 3.8 Chloride Level 100 Carbon Dioxide Level 29 Anion Gap 10 Blood Urea Nitrogen 38 #H Creatinine 3.28 H Glucose Level 71 # Calcium Level 8.2 L Phosphorus Level 3.8 Magnesium Level 1.7 Test 05/08/17 11:54 05/08/17 15:40 05/08/17 16:01 05/08/17 16:33 Bedside Glucose 78 47 *L 46 *L 131 Test 05/08/17 16:48 05/08/17 17:29 Bedside Glucose 138 168 Medications Medications Current Medications Ondansetron HCl (Zofran Tab) 4 mg Q6H PRN PO NAUSEA AND/OR VOMITING; Start at 23:00 Nitroglycerin (Nitroglycerin (Sl Tab) 0.4 Mg) 1 tab Q5M PRN SL CHEST PAIN; Start 04/24/17 at 23:00 Docusate Sodium (Colace) 100 mg Q12H PRN PO CONSTIPATION; Start 04/24/17 at 23 :00 Bisacodyl (Dulcolax) 5 mg DAILY PRN PO CONSTIPATION; Start 04/24/17 at 23:00 Atorvastatin Calcium (Lipitor) 80 mg QHS PO Last administered on 05/07/17 21: 16; Admin Dose 80 MG; Start 04/25/17 at 21:00 Ergocalciferol (Drisdol) 50,000 unit Mo@09 PO Last administered on 05/06/17 09:13; Admin Dose 50,000 UNIT; Start 04/24/17 at 23:00 Ferrous Sulfate (Ferrous Sulfate (Ec)) 325 mg DAILY PO Last administered on 08:00; Admin Dose 325 MG; Start 04/25/17 at 09:00 Multivit/Ca Carb/ B Cmplx/FA/Prenat (Isabel-Brenda) 1 tab DAILY PO Last administered on 05/08/17 08:02; Admin Dose 1 TAB; Start 04/25/17 at 09:00 Pantoprazole (Protonix Tab) 40 mg DAILY@06 PO Last administered on 05/08/17 05:56; Admin Dose 40 MG; Start 04/25/17 at 06:00 Guaifenesin/ Dextromethorphan (Mucinex Dm) 1 tab BID PO Last administered on 08:01; Admin Dose 1 TAB; Start 04/25/17 at 03:15 Diagnostic Test (Pha) (Accu-Chek) 1 ea 02 XX Last administered on 05/04/17 02: 00; Admin Dose 1 EA; Start 04/26/17 at 02:00 Citric Acid/ Sodium Citrate (Bicitra) 30 ml TID PO Last administered on 13:32; Admin Dose 30 ML; Start 04/25/17 at 13:00 Aspirin (Aspirin) 81 mg DAILY PO Last administered on 04/30/17 10:05; Admin Dose 81 MG; Start 04/25/17 at 12:00; Status Future Hold Heparin Sodium (Porcine) (Heparin (5000 Units/0.5 ml)) 5,000 unit BID SC Last administered on 05/08/17 09:02; Admin Dose 5,000 UNIT; Start 04/26/17 at 09:00 ; Status Future Hold Miscellaneous Information 1 ea NOTE XX Last administered on 04/30/17 17:45; Admin Dose 1 EA; Start 04/25/17 at 12:00 Glucose (Glutose) 15 gm Q15M PRN PO DECREASED GLUCOSE; Start 04/25/17 at 12:00 Glucose (Glutose) 22.5 gm Q15M PRN PO DECREASED GLUCOSE; Start 04/25/17 at 12: 00 Dextrose (D50w Syringe) 25 ml Q15M PRN IV DECREASED GLUCOSE Last administered on 05/08/17 16:08; Admin Dose 25 ML; Start 04/25/17 at 12:00 Dextrose (D50w Syringe) 50 ml Q15M PRN IV DECREASED GLUCOSE; Start 04/25/17 at 12:00 Glucagon (Glucagen) 1 mg Q15M PRN IM DECREASED GLUCOSE; Start 04/25/17 at 12: 00 Glucose (Glutose) 15 gm Q15M PRN BUCCAL DECREASED GLUCOSE; Start 04/25/17 at 12:00 Furosemide (Lasix) 20 mg BID IV Last administered on 05/08/17 08:01; Admin Dose 20 MG; Start 04/26/17 at 09:00 Fish Oil (Fish Oil) 2,000 mg BID PO Last administered on 05/08/17 08:01; Admin Dose 2,000 MG; Start 04/27/17 at 21:00 EZETIMIBE (Zetia) 10 mg DAILY PO Last administered on 05/08/17 08:02; Admin Dose 10 MG; Start 04/28/17 at 09:00 Morphine Sulfate (morphine) 2 mg Q4H PRN IV Pain Last administered on 10:24; Admin Dose 2 MG; Start 04/28/17 at 09:00 Linagliptin (Tradjenta) 5 mg DAILY PO Last administered on 05/08/17 08:00; Admin Dose 5 MG; Start 04/28/17 at 12:00 Tiotropium [place] (Spiriva) 1 inh DAILY INH Last administered on 05/08/17 08 :01; Admin Dose 1 INH; Start 04/30/17 at 13:30 Salmeterol Xinafoate/ Fluticasone (Advair 250/50 Diskus) 1 inh BID INH Last administered on 05/08/17 08:03; Admin Dose 1 INH; Start 04/30/17 at 21:00 Amlodipine Besylate (Norvasc) 5 mg BID PO Last administered on 05/08/17 08:01 ; Admin Dose 5 MG; Start 05/03/17 at 21:00 Carvedilol (Coreg) 3.125 mg BID PO Last administered on 05/08/17t 08:02; Admin Dose 3.125 MG; Start 05/04/17 at 09:00 Insulin Glargine (Lantus) 28 unit BID SC ; Start 05/08/17 at 21:00; Status MARA GARCÍA MD May 08, 2017 17:57
--- NOTE | 2017-05-08 18:50 | PN ---
Date/Time of Note Date/Time of Note DATE: 05/08/17 TIME: 18:46 Assessment/Plan Lines/Catheters IV Catheter Type (from [facility] permacath Pierre in Place (from [facility]): No Assessment/Plan Chief Complaint/Hosp Course -Acute on chronic kidney disease: It seems the patient's renal failure has progressed to possibly end-stage renal, in which the patient requires permanent hemodialysis. As our nephrology colleagues are evaluating the patient at the moment, the patient will require hemodialysis . -S/P right CFV Madi catheter -S/P Right IJ perm catheter -Will await placement of a new fistula until cleared from GI standpoint as he would require intraop heparin -If patient is not a candidate for anticoagulation secondary to GIB and anemia and may require an IVC filter placement. The DVT-seems chronic, therefore will plan a multidisciplinary discussion for what is the best course of action -Patient has multiple access options when medically optimized -Optimize vascular status (BP meds, diet, nutrition, exercise, sugar control, antiplatelets). -Bilateral lower extremity atherosclerosis: The patient has no significant ulcerations or gangrene for now. Will plan to follow with the patient's vascular surveillance as an outpatient. -Discussed findings, plan and management with the patient and the family at the bedside and they understand. -Thank you for allowing us to partake in the care of your patient. Please call with any questions. Problems: Subjective 24 Hr Interval Summary no new vascular events overnight, tolerating HD well Exam/Review of Systems Vital Signs Vitals Vital Signs Date Time Temp Pulse Resp B/P Pulse Ox O2 Delivery O2 Flow Rate FiO2 05/08/17 17:21 82 20 99 Nasal Cannula 2.0 28 05/08/17 15:45 97.4 158/73 Intake and Output 05/07/17 05/07/17 05/08/17 15:00 23:00 07:00 Intake Total 500 ml 720 ml 500 ml Output Total 3000 ml 300 ml Balance -2500 ml 420 ml 500 ml Exam Free Text/Dictation GENERAL: Alert and oriented x3 PULMONARY: Bilateral crackles at the bases. Catheter intact and functional CARDIOVASCULAR: S1, S2 present. ABDOMEN: Soft, nontender, nondistended. Bowel sounds positive. Truncal obesity. EXTREMITIES: Right lower extremity palpable femoral pulse, nonpalpable pedal pulse. Motor and sensory intact. Capillary refill 3 seconds. Left lower extremity: Palpable femoral pulse, nonpalpable pedal pulse. Motor and sensory intact. Capillary refill 3 seconds. Results Result Diagram: 05/08/17 0635 05/08/17 0635 VANIA PEREYRA MD May 08, 2017 18:50
[2017-05-08] MEDS: ATORVASTATIN 80 MG TAB PO SCH (20:18)
--- NOTE | 2017-05-08 23:24 | CONS ---
Date/Time of Note Date/Time of Note DATE: 05/08/17 TIME: 23:22 Assessment/Plan Assessment/Plan Additional Assessment/Plan 1. 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 H/o CKD due to diabetic nehropathy as per pt was stage IV/V with eGFR 15 as outpatient 3. Acute hyperkalemia due to TROY on CKD - resolved after pt gets started on HD 4. Metabolic acidosis due to worsenign renal failure 5. H/ CAD S/p previous coronary angiogram as per patient 6. Hypertension 7. Type II DM 8. Hyperlipidemia 9. Acute NSETMI due to CHF 10. severe anemia despite getting PRBC, concerned abotu GI bleeding, Plan : hepatitis C antibody positive, Hepatitis A antibody positive EGD showed distal esophagitis, s/p Hd today 2.5 L removed, HD placement confirmed at [facility] - shcedule is MWF Hb 6.9- ok to transfuse after HD today on Epogen for anemia will follow up Consultation Date/Type/Reason Admit Date/Time Apr 24, 2017 at 19:05 Initial Consult Date 04/25/17 Type of Consultation: NEPHROLOGY Referring Provider: NANY PRIEST NP 24 HR Interval Summary Free Text/Dictation s/p HD today 2.5 L removed, Hb dropped to 6.9, afebrile Exam/Review of Systems Vital Signs Vitals Vital Signs Date Time Temp Pulse Resp B/P Pulse Ox O2 Delivery O2 Flow Rate FiO2 05/08/17 20:58 69 20 96 21 05/08/17 20:46 98.1 121/58 05/08/17 17:21 Nasal Cannula 2.0 Intake and Output 05/07/17 05/07/17 05/08/17 15:00 23:00 07:00 Intake Total 500 ml 720 ml 500 ml Output Total 3000 ml 300 ml Balance -2500 ml 420 ml 500 ml Exam Constitutional: alert Respiratory: clear to auscultation, diminished breath sounds, normal air movement, + right chest permacath Cardiovascular: nl pulses, regular rate and rhythm Gastrointestinal: non-tender, soft Musculoskeletal: muscle weakness, nl extremities to inspection, swelling Extremities: calf tenderness, normal pulses 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: PIGMENT AND LACQUER MIXER II-XII intact, nl mental status, nl speech, nl strength Results Result Diagram: 05/08/17 0635 05/08/17 0635 Results 24 hrs Laboratory Tests Test 05/08/17 00:56 05/08/17 06:35 05/08/17 07:54 05/08/17 11:54 Bedside Glucose 222 H 77 78 White Blood Count 9.2 Red Blood Count 2.19 L Hemoglobin 6.9 *L Hematocrit 20.3 L Mean Corpuscular Volume 92.7 Mean Corpuscular Hemoglobin 31.5 Mean Corpuscular Hemoglobin Concent 34.0 Red Cell Distribution Width 18.3 H Platelet Count 178 Mean Platelet Volume 13.1 H Neutrophils % 73.5 Lymphocytes % 13.5 L Monocytes % 7.4 Eosinophils % 4.3 Basophils % 0.5 Nucleated Red Blood Cells % 0.4 H Neutrophils # 7.3 Lymphocytes # 1.3 Monocytes # 0.7 Eosinophils # 0.4 Basophils # 0.1 Nucleated Red Blood Cells # 0.0 Sodium Level 135 Potassium Level 3.8 Chloride Level 100 Carbon Dioxide Level 29 Anion Gap 10 Blood Urea Nitrogen 38 #H Creatinine 3.28 H Glucose Level 71 # Calcium Level 8.2 L Phosphorus Level 3.8 Magnesium Level 1.7 Test 05/08/17 15:40 05/08/17 16:01 05/08/17 16:33 05/08/17 16:48 Bedside Glucose 47 *L 46 *L 131 138 Test 05/08/17 17:29 05/08/17 18:24 05/08/17 20:20 Bedside Glucose 168 152 140 Medications Medications Current Medications Ondansetron HCl (Zofran Tab) 4 mg Q6H PRN PO NAUSEA AND/OR VOMITING; Start at 23:00 Nitroglycerin (Nitroglycerin (Sl Tab) 0.4 Mg) 1 tab Q5M PRN SL CHEST PAIN; Start 04/24/17 at 23:00 Docusate Sodium (Colace) 100 mg Q12H PRN PO CONSTIPATION; Start 04/24/17 at 23 :00 Bisacodyl (Dulcolax) 5 mg DAILY PRN PO CONSTIPATION; Start 04/24/17 at 23:00 Atorvastatin Calcium (Lipitor) 80 mg QHS PO Last administered on 05/08/17t 20: 18; Admin Dose 80 MG; Start 04/25/17 at 21:00 Ergocalciferol (Drisdol) 50,000 unit Mo@09 PO Last administered on 05/06/17 09:13; Admin Dose 50,000 UNIT; Start 04/24/17 at 23:00 Ferrous Sulfate (Ferrous Sulfate (Ec)) 325 mg DAILY PO Last administered on 08:00; Admin Dose 325 MG; Start 04/25/17 at 09:00 Multivit/Ca Carb/ B Cmplx/FA/Prenat (Isabel-Brenda) 1 tab DAILY PO Last administered on 05/08/17 08:02; Admin Dose 1 TAB; Start 04/25/17 at 09:00 Pantoprazole (Protonix Tab) 40 mg DAILY@06 PO Last administered on 05/08/17 05:56; Admin Dose 40 MG; Start 04/25/17 at 06:00 Guaifenesin/ Dextromethorphan (Mucinex Dm) 1 tab BID PO Last administered on 20:17; Admin Dose 1 TAB; Start 04/25/17 at 03:15 Diagnostic Test (Pha) (Accu-Chek) 1 ea 02 XX Last administered on 05/04/17 02: 00; Admin Dose 1 EA; Start 04/26/17 at 02:00 Citric Acid/ Sodium Citrate (Bicitra) 30 ml TID PO Last administered on 20:17; Admin Dose 30 ML; Start 04/25/17 at 13:00 Aspirin (Aspirin) 81 mg DAILY PO Last administered on 04/30/17 10:05; Admin Dose 81 MG; Start 04/25/17 at 12:00; Status Future Hold Heparin Sodium (Porcine) (Heparin (5000 Units/0.5 ml)) 5,000 unit BID SC Last administered on 05/08/17 09:02; Admin Dose 5,000 UNIT; Start 04/26/17 at 09:00 ; Status Future Hold Miscellaneous Information 1 ea NOTE XX Last administered on 04/30/17 17:45; Admin Dose 1 EA; Start 04/25/17 at 12:00 Glucose (Glutose) 15 gm Q15M PRN PO DECREASED GLUCOSE; Start 04/25/17 at 12:00 Glucose (Glutose) 22.5 gm Q15M PRN PO DECREASED GLUCOSE; Start 04/25/17 at 12: 00 Dextrose (D50w Syringe) 25 ml Q15M PRN IV DECREASED GLUCOSE Last administered on 05/08/17 16:08; Admin Dose 25 ML; Start 04/25/17 at 12:00 Dextrose (D50w Syringe) 50 ml Q15M PRN IV DECREASED GLUCOSE; Start 04/25/17 at 12:00 Glucagon (Glucagen) 1 mg Q15M PRN IM DECREASED GLUCOSE; Start 04/25/17 at 12: 00 Glucose (Glutose) 15 gm Q15M PRN BUCCAL DECREASED GLUCOSE; Start 04/25/17 at 12:00 Furosemide (Lasix) 20 mg BID IV Last administered on 05/08/17 20:18; Admin Dose 20 MG; Start 04/26/17 at 09:00 Fish Oil (Fish Oil) 2,000 mg BID PO Last administered on 05/08/17 20:18; Admin Dose 2,000 MG; Start 04/27/17 at 21:00 EZETIMIBE (Zetia) 10 mg DAILY PO Last administered on 05/08/17 08:02; Admin Dose 10 MG; Start 04/28/17 at 09:00 Morphine Sulfate (morphine) 2 mg Q4H PRN IV Pain Last administered on 10:24; Admin Dose 2 MG; Start 04/28/17 at 09:00 Linagliptin (Tradjenta) 5 mg DAILY PO Last administered on 05/08/17 08:00; Admin Dose 5 MG; Start 04/28/17 at 12:00 Tiotropium [place] (Spiriva) 1 inh DAILY INH Last administered on 05/08/17 08 :01; Admin Dose 1 INH; Start 04/30/17 at 13:30 Salmeterol Xinafoate/ Fluticasone (Advair 250/50 Diskus) 1 inh BID INH Last administered on 05/08/17 20:19; Admin Dose 1 INH; Start 04/30/17 at 21:00 Amlodipine Besylate (Norvasc) 5 mg BID PO Last administered on 05/08/17 20:18 ; Admin Dose 5 MG; Start 05/03/17 at 21:00 Carvedilol (Coreg) 3.125 mg BID PO Last administered on 05/08/17 20:18; Admin Dose 3.125 MG; Start 05/04/17 at 09:00 Insulin Glargine (Lantus) 28 unit BID SC Last administered on 05/08/17 20:35 ; Admin Dose 28 UNIT; Start 05/08/17 at 21:00 RAQUEL MCDOWELL MD May 08, 2017 23:24
[2017-05-09] VITALS (12 sets, daily range): BP systolic 106–150; BP diastolic 53–66; PULSE 65–80; RESP 16–20
[2017-05-09] MEDS: ALBUTEROL/IPRATROPIUM (NEB) 3 ML AMP HHN SCH ×6 (01:43→20:19)
[2017-05-09] MEDS: ACCU-CHEK XX SCH (02:00)
[2017-05-09] MEDS: PANTOPRAZOLE (EC) 40 MG TAB PO SCH (06:18)
[2017-05-09] MEDS: SALMETEROL/FLUTICASONE 250/50 INHA INH SCH ×2 (08:36→22:00)
[2017-05-09] MEDS: FERROUS SULFATE (EC) 325 MG TAB PO SCH (08:37)
[2017-05-09] MEDS: FISH OIL 1,000 MG CAP PO SCH ×2 (08:38→21:58)
[2017-05-09] MEDS: LINAGLIPTIN 5 MG TABLET PO SCH (08:38)
[2017-05-09] MEDS: CITRIC ACID/SODIUM CITRATE 15 ML CUP PO SCH ×3 (08:39→21:58)
[2017-05-09] MEDS: GUAIFENESIN/DM (SR) TAB PO SCH ×2 (08:39→21:58)
[2017-05-09] MEDS: EZETIMIBE 10 MG TAB PO SCH (08:39)
[2017-05-09] MEDS: MULTIVIT/CA CARB/B CMPLX/FA TAB PO SCH (08:39)
[2017-05-09] MEDS: AMLODIPINE 5 MG TAB PO SCH ×2 (08:39→21:59)
[2017-05-09] MEDS: TIOTROPIUM 18 MCG CAPSULE INHA DEV INH SCH (08:40)
[2017-05-09] MEDS: FUROSEMIDE 20 MG INJ IV SCH ×2 (08:43→21:58)
[2017-05-09] MEDS: INSULIN ASPART [NOVOLOG] 3 ML PEN SC SCH ×9 (08:51→22:00)
[2017-05-09] MEDS: INSULIN GLARGINE [LANtus] 3 ML PEN SC SCH ×2 (08:51→22:18)
[2017-05-09 09:54] LABS: CALCIUM 8.5 mg/dl (8.4-10.2); CREATININE 3.52 mg/dl (0.61-1.24); POTASSIUM 4.3 mmol/L (3.5-5.1)
[2017-05-09 09:58] LABS: MAGNESIUM 1.7 mg/dl (1.7-2.5); PHOSPHORUS 3.2 mg/dl (2.5-4.9)
[2017-05-09 10:06] LABS: ABNORMAL IP MESSAGE 1; HEMATOCRIT 18.9 % (42.0-52.0); MEAN CORPUSCULAR HEMOGLOBIN 31.7 pg (29.0-33.0); MEAN CORPUSCULAR HGB CONC 33.3 g/dl (32.0-37.0); MEAN PLATELET VOLUME 12.1 fl (7.4-10.4); POSITIVE DIFF @See below; RED BLOOD COUNT 1.99 10^6/ul (4.70-6.10); RED CELL DISTRIBUTION WIDTH 18.6 % (11.5-14.5)
[2017-05-09 10:08] LABS: PLATELET COUNT 198 10^3/UL (140-415); WHITE BLOOD COUNT 10.3 10^3/ul (4.8-10.8)
[2017-05-09 10:10] LABS: HEMOGLOBIN 6.3 g/dl (14.0-18.0)
--- NOTE | 2017-05-09 10:20 | PN ---
Date/Time of Note Date/Time of Note DATE: 05/09/17 TIME: 10:18 Assessment/Plan VTE Prophylaxis VTE Prophylaxis Intervention: contraindicated Lines/Catheters IV [facility] permacath Urinary Cath still in place: No Assessment/Plan Chief Complaint/Hosp Course 1. Acute respiratory failure. Hypoxic. Most probably secondary to underlying fluid overload and COPD exacerbation. Continue HD per nephrology. Continue inhaled bronchodilators. Continue supplemental oxygen. 2. Intermittent Mobitz type I block. Patient asymptomatic. Cardiology following. 3. Acute on chronic congestive heart failure exacerbation. Diastolic dysfunction. Continue hemodialysis as per nephrology. 4. Moderate distal esophagitis. Continue PPI. 5. Pulmonary hypertension. PA systolic pressure 44 mmHg. Continue supplemental oxygen. 6. CAD. Status post PTCA in the past. Aspirin on hold because anemia. 7. Metabolic acidosis. Most probably secondary to worsening renal function. On Bicitra as per nephrology. 8. Dyslipidemia. Continue statins. 9. Diabetes mellitus type 2. Continue sliding scale insulin along with basal insulin and pre-meal insulin. Adjust insulin dosing to obtain optimal blood sugar control. Endocrinology following. 10. Essential hypertension. Continue antihypertensives. 11. DVT of the left popliteal vein. Anticoagulation on hold because of anemia. 12. Acute on chronic chronic kidney disease. The patient being followed by nephrology. The patient was newly started on hemodialysis. 13. Normocytic, normochromic anemia. Status post multiple units of PRBC transfusion. EGDscopy negative for any active bleeding sites. 14. Fluids, electrolytes, and nutrition. Carbohydrate controlled, low- cholesterol diet. 15. DVT prophylaxis. Subcutaneous heparin on hold because of worsening anemia. 16. Plan. Continue hemodialysis as per nephrology. Monitor H&H closely. Transfuse PRBCs as per gastroenterology. The patient has no evidence of GI bleeding as per gastroenterology. Therefore, a hematology consult will be obtained for evaluation of any hemolytic anemia. The patient was seen in collaboration with Dr. Jackson. Problems: Subjective 24 Hr Interval Summary Free Text/Dictation Dizziness with getting up. No dyspnea. No chest pain. Awaiting on PRBCs for transfusion. Exam/Review of Systems Vital Signs Vitals Vital Signs Date Time Temp Pulse Resp B/P Pulse Ox O2 Delivery O2 Flow Rate FiO2 05/09/17 09:17 72 18 96 21 05/09/17 08:30 98.1 147/65 05/08/17 17:21 Nasal Cannula 2.0 Intake and Output 05/08/17 05/08/17 05/09/17 15:00 23:00 07:00 Intake Total 900 ml 500 ml Balance 900 ml 500 ml Exam General: Obese 66 year-old male lying in bed in no apparent distress. HEENT: Normocephalic, atraumatic. Eyes: Anicteric sclerae, conjunctivae clear. ENT: Nasal septum midline, oral mucosa moist. Neck supple, JVD noticed. Respiratory: Bilaterally diminished breath sounds. No use of accessory muscles of respiration. Cardiovascular: S1, S2 heard. Regular rate and rhythm. Abdomen: Soft, nontender, and nondistended. Bowel sounds positive in all 4 quadrants. Genitourinary: Deferred. Extremities: No cyanosis. B/L 1+ pedal edema. Peripheral pulses palpable. Neurologic: Cranial nerves II through XII grossly intact. The patient is awake, alert, and oriented. Skin: Normal skin turgor. No skin rashes. Results Result Diagram: 05/09/17 0830 05/09/17 0830 Results 24 hrs Laboratory Tests Test 05/08/17 11:54 05/08/17 15:40 05/08/17 16:01 05/08/17 16:33 Bedside Glucose 78 47 *L 46 *L 131 Test 05/08/17 16:48 05/08/17 17:29 05/08/17 18:24 05/08/17 20:20 Bedside Glucose 138 168 152 140 Test 05/09/17 00:30 05/09/17 00:53 05/09/17 00:54 05/09/17 08:04 Bedside Glucose 37 *L 157 190 Glucose Level 148 # Test 05/09/17 08:30 White Blood Count 10.3 Red Blood Count 1.99 L Hemoglobin 6.3 *L Hematocrit 18.9 L Mean Corpuscular Volume 95.0 Mean Corpuscular Hemoglobin 31.7 Mean Corpuscular Hemoglobin Concent 33.3 Red Cell Distribution Width 18.6 H Platelet Count 198 Mean Platelet Volume 12.1 H Neutrophils % Lymphocytes % Monocytes % Eosinophils % Basophils % Nucleated Red Blood Cells % 0.0 Neutrophils # Lymphocytes # Monocytes # Eosinophils # Basophils # Nucleated Red Blood Cells # Sodium Level 138 Potassium Level 4.3 Chloride Level 100 Carbon Dioxide Level 30 Anion Gap 12 Blood Urea Nitrogen 39 H Creatinine 3.52 H Glucose Level 164 Calcium Level 8.5 Phosphorus Level 3.2 Magnesium Level 1.7 Medications Medications Current Medications Ondansetron HCl (Zofran Tab) 4 mg Q6H PRN PO NAUSEA AND/OR VOMITING; Start at 23:00 Nitroglycerin (Nitroglycerin (Sl Tab) 0.4 Mg) 1 tab Q5M PRN SL CHEST PAIN; Start 04/24/17 at 23:00 Docusate Sodium (Colace) 100 mg Q12H PRN PO CONSTIPATION; Start 04/24/17 at 23 :00 Bisacodyl (Dulcolax) 5 mg DAILY PRN PO CONSTIPATION; Start 04/24/17 at 23:00 Atorvastatin Calcium (Lipitor) 80 mg QHS PO Last administered on 05/08/17 20: 18; Admin Dose 80 MG; Start 04/25/17 at 21:00 Ergocalciferol (Drisdol) 50,000 unit Mo@09 PO Last administered on 05/06/17 09:13; Admin Dose 50,000 UNIT; Start 04/24/17 at 23:00 Ferrous Sulfate (Ferrous Sulfate (Ec)) 325 mg DAILY PO Last administered on 08:37; Admin Dose 325 MG; Start 04/25/17 at 09:00 Multivit/Ca Carb/ B Cmplx/FA/Prenat (Isabel-Brenda) 1 tab DAILY PO Last administered on 05/09/17 08:39; Admin Dose 1 TAB; Start 04/25/17 at 09:00 Pantoprazole (Protonix Tab) 40 mg DAILY@06 PO Last administered on 05/09/17 06:18; Admin Dose 40 MG; Start 04/25/17 at 06:00 Guaifenesin/ Dextromethorphan (Mucinex Dm) 1 tab BID PO Last administered on 08:39; Admin Dose 1 TAB; Start 04/25/17 at 03:15 Diagnostic Test (Pha) (Accu-Chek) 1 ea 02 XX Last administered on 05/04/17 02: 00; Admin Dose 1 EA; Start 04/26/17 at 02:00 Citric Acid/ Sodium Citrate (Bicitra) 30 ml TID PO Last administered on 08:39; Admin Dose 30 ML; Start 04/25/17 at 13:00 Aspirin (Aspirin) 81 mg DAILY PO Last administered on 04/30/17 10:05; Admin Dose 81 MG; Start 04/25/17 at 12:00; Status Future Hold Heparin Sodium (Porcine) (Heparin (5000 Units/0.5 ml)) 5,000 unit BID SC Last administered on 05/08/17 09:02; Admin Dose 5,000 UNIT; Start 04/26/17 at 09:00 ; Status Future Hold Miscellaneous Information 1 ea NOTE XX Last administered on 04/30/17 17:45; Admin Dose 1 EA; Start 04/25/17 at 12:00 Glucose (Glutose) 15 gm Q15M PRN PO DECREASED GLUCOSE; Start 04/25/17 at 12:00 Glucose (Glutose) 22.5 gm Q15M PRN PO DECREASED GLUCOSE; Start 04/25/17 at 12: 00 Dextrose (D50w Syringe) 25 ml Q15M PRN IV DECREASED GLUCOSE Last administered on 05/08/17 16:08; Admin Dose 25 ML; Start 04/25/17 at 12:00 Dextrose (D50w Syringe) 50 ml Q15M PRN IV DECREASED GLUCOSE Last administered on 05/09/17 00:39; Admin Dose 50 ML; Start 04/25/17 at 12:00 Glucagon (Glucagen) 1 mg Q15M PRN IM DECREASED GLUCOSE; Start 04/25/17 at 12: 00 Glucose (Glutose) 15 gm Q15M PRN BUCCAL DECREASED GLUCOSE; Start 04/25/17 at 12:00 Furosemide (Lasix) 20 mg BID IV Last administered on 05/09/17 08:43; Admin Dose 20 MG; Start 04/26/17 at 09:00 Fish Oil (Fish Oil) 2,000 mg BID PO Last administered on 05/09/17 08:38; Admin Dose 2,000 MG; Start 04/27/17 at 21:00 EZETIMIBE (Zetia) 10 mg DAILY PO Last administered on 05/09/17 08:39; Admin Dose 10 MG; Start 04/28/17 at 09:00 Morphine Sulfate (morphine) 2 mg Q4H PRN IV Pain Last administered on 10:24; Admin Dose 2 MG; Start 04/28/17 at 09:00 Linagliptin (Tradjenta) 5 mg DAILY PO Last administered on 05/09/17 08:38; Admin Dose 5 MG; Start 04/28/17 at 12:00 Tiotropium [place] (Spiriva) 1 inh DAILY INH Last administered on 05/09/17 08 :40; Admin Dose 1 INH; Start 04/30/17 at 13:30 Salmeterol Xinafoate/ Fluticasone (Advair 250/50 Diskus) 1 inh BID INH Last administered on 05/09/17 08:36; Admin Dose 1 INH; Start 04/30/17 at 21:00 Amlodipine Besylate (Norvasc) 5 mg BID PO Last administered on 05/09/17 08:39 ; Admin Dose 5 MG; Start 05/03/17 at 21:00 Carvedilol (Coreg) 3.125 mg BID PO Last administered on 05/09/17 08:40; Admin Dose 3.125 MG; Start 05/04/17 at 09:00 Insulin Glargine (Lantus) 28 unit BID SC Last administered on 05/09/17 08:51 ; Admin Dose 28 UNIT; Start 05/08/17 at 21:00 NANY PRIEST NP May 09, 2017 10:20
[2017-05-09 10:27] LABS: ANISOCYTOSIS 2+ (0-0); EOSINOPHILS % (M) 1 % (0-7); MICROCYTOSIS 2+ (0-0); MONOCYTES % (M) 6 % (0-11); PLATELET ESTIMATE DECREASED; POIKILOCYTOSIS 3+ (0-0); POLYCHROMASIA 3+ (0-0)
--- NOTE | 2017-05-09 12:26 | CONS ---
Date/Time of Note Date/Time of Note DATE: 05/09/17 TIME: 12:23 Consult Date/Type/Reason Admit Date/Time Apr 24, 2017 at 19:05 Initial Consult Date 05/01/17 Type of Consultation: NEPHROLOGY Ordering Provider: NANY PRIEST DRAIN TECHNICIAN Subjective Pending transfusion of matched blood. Objective Vital Signs Date Time Temp Pulse Resp B/P Pulse Ox O2 Delivery O2 Flow Rate FiO2 05/09/17 12:02 68 05/09/17 11:39 98.1 17 145/63 95 05/09/17 09:17 21 05/08/17 17:21 Nasal Cannula 2.0 Intake and Output 05/08/17 05/08/17 05/09/17 15:00 23:00 07:00 Intake Total 900 ml 500 ml Balance 900 ml 500 ml Exam GENERAL: Elderly Chinese gentleman comfortable at rest no acute distress VITAL SIGNS: per chart NECK: Supple. No JVD or lymphadenopathy. CARDIAC EXAM: S1, S2. No added sounds or murmurs. CHEST: clear bilaterally, No added sounds, rales or wheezes ABDOMEN: Soft, nontender. No guarding or rebound. EXTREMITIES: No cyanosis, clubbing or edema. NEUROLOGIC: Generalized weakness. No focal deficits. Results/Medications Result Diagram: 05/09/17 0830 05/09/17 0830 Results 24 hrs Laboratory Tests Test 05/08/17 15:40 05/08/17 16:01 05/08/17 16:33 05/08/17 16:48 Bedside Glucose 47 *L 46 *L 131 138 Test 05/08/17 17:29 05/08/17 18:24 05/08/17 20:20 05/09/17 00:30 Bedside Glucose 168 152 140 37 *L Test 05/09/17 00:53 05/09/17 00:54 05/09/17 08:04 05/09/17 08:30 Glucose Level 148 # 164 Bedside Glucose 157 190 White Blood Count 10.3 Red Blood Count 1.99 L Hemoglobin 6.3 *L Hematocrit 18.9 L Mean Corpuscular Volume 95.0 Mean Corpuscular Hemoglobin 31.7 Mean Corpuscular Hemoglobin Concent 33.3 Red Cell Distribution Width 18.6 H Platelet Count 198 Mean Platelet Volume 12.1 H Neutrophils % Segmented Neutrophils % (Manual) 74 Band Neutrophils % (Manual) 3 Lymphocytes % Lymphocytes % (Manual) 16 Monocytes % Monocytes % (Manual) 6 Eosinophils % Eosinophils % (Manual) 1 Basophils % Nucleated Red Blood Cells % 0.0 Neutrophils # Neutrophils # (Manual) 7.7 H Band Neutrophils # 0.3 Absolute Lymphocytes (Manual) 1.6 Lymphocytes # Monocytes # Absolute Monocytes (Manual) 0.6 Eosinophils # Basophils # Nucleated Red Blood Cells # Platelet Estimate DECREASED Polychromasia 3+ Poikilocytosis 3+ Anisocytosis 2+ Microcytosis 2+ Sodium Level 138 Potassium Level 4.3 Chloride Level 100 Carbon Dioxide Level 30 Anion Gap 12 Blood Urea Nitrogen 39 H Creatinine 3.52 H Calcium Level 8.5 Phosphorus Level 3.2 Magnesium Level 1.7 Test 05/09/17 11:56 Bedside Glucose 80 Medications Current Medications Ondansetron HCl (Zofran Tab) 4 mg Q6H PRN PO NAUSEA AND/OR VOMITING; Start at 23:00 Nitroglycerin (Nitroglycerin (Sl Tab) 0.4 Mg) 1 tab Q5M PRN SL CHEST PAIN; Start 04/24/17 at 23:00 Docusate Sodium (Colace) 100 mg Q12H PRN PO CONSTIPATION; Start 04/24/17 at 23 :00 Bisacodyl (Dulcolax) 5 mg DAILY PRN PO CONSTIPATION; Start 04/24/17 at 23:00 Atorvastatin Calcium (Lipitor) 80 mg QHS PO Last administered on 05/08/17 20: 18; Admin Dose 80 MG; Start 04/25/17 at 21:00 Ergocalciferol (Drisdol) 50,000 unit Mo@09 PO Last administered on 05/06/17 09:13; Admin Dose 50,000 UNIT; Start 04/24/17 at 23:00 Ferrous Sulfate (Ferrous Sulfate (Ec)) 325 mg DAILY PO Last administered on 08:37; Admin Dose 325 MG; Start 04/25/17 at 09:00 Multivit/Ca Carb/ B Cmplx/FA/Prenat (Isabel-Brenda) 1 tab DAILY PO Last administered on 05/09/17 08:39; Admin Dose 1 TAB; Start 04/25/17 at 09:00 Pantoprazole (Protonix Tab) 40 mg DAILY@06 PO Last administered on 05/09/17 06:18; Admin Dose 40 MG; Start 04/25/17 at 06:00 Guaifenesin/ Dextromethorphan (Mucinex Dm) 1 tab BID PO Last administered on 08:39; Admin Dose 1 TAB; Start 04/25/17 at 03:15 Diagnostic Test (Pha) (Accu-Chek) 1 ea 02 XX Last administered on 05/04/17 02: 00; Admin Dose 1 EA; Start 04/26/17 at 02:00 Citric Acid/ Sodium Citrate (Bicitra) 30 ml TID PO Last administered on 08:39; Admin Dose 30 ML; Start 04/25/17 at 13:00 Aspirin (Aspirin) 81 mg DAILY PO Last administered on 04/30/17 10:05; Admin Dose 81 MG; Start 04/25/17 at 12:00; Status Future Hold Heparin Sodium (Porcine) (Heparin (5000 Units/0.5 ml)) 5,000 unit BID SC Last administered on 05/08/17 09:02; Admin Dose 5,000 UNIT; Start 04/26/17 at 09:00 ; Status Future Hold Miscellaneous Information 1 ea NOTE XX Last administered on 04/30/17 17:45; Admin Dose 1 EA; Start 04/25/17 at 12:00 Glucose (Glutose) 15 gm Q15M PRN PO DECREASED GLUCOSE; Start 04/25/17 at 12:00 Glucose (Glutose) 22.5 gm Q15M PRN PO DECREASED GLUCOSE; Start 04/25/17 at 12: 00 Dextrose (D50w Syringe) 25 ml Q15M PRN IV DECREASED GLUCOSE Last administered on 05/08/17 16:08; Admin Dose 25 ML; Start 04/25/17 at 12:00 Dextrose (D50w Syringe) 50 ml Q15M PRN IV DECREASED GLUCOSE Last administered on 05/09/17 00:39; Admin Dose 50 ML; Start 04/25/17 at 12:00 Glucagon (Glucagen) 1 mg Q15M PRN IM DECREASED GLUCOSE; Start 04/25/17 at 12: 00 Glucose (Glutose) 15 gm Q15M PRN BUCCAL DECREASED GLUCOSE; Start 04/25/17 at 12:00 Furosemide (Lasix) 20 mg BID IV Last administered on 05/09/17 08:43; Admin Dose 20 MG; Start 04/26/17 at 09:00 Fish Oil (Fish Oil) 2,000 mg BID PO Last administered on 05/09/17 08:38; Admin Dose 2,000 MG; Start 04/27/17 at 21:00 EZETIMIBE (Zetia) 10 mg DAILY PO Last administered on 05/09/17 08:39; Admin Dose 10 MG; Start 04/28/17 at 09:00 Morphine Sulfate (morphine) 2 mg Q4H PRN IV Pain Last administered on 10:24; Admin Dose 2 MG; Start 04/28/17 at 09:00 Linagliptin (Tradjenta) 5 mg DAILY PO Last administered on 05/09/17 08:38; Admin Dose 5 MG; Start 04/28/17 at 12:00 Tiotropium [place] (Spiriva) 1 inh DAILY INH Last administered on 05/09/17 08 :40; Admin Dose 1 INH; Start 04/30/17 at 13:30 Salmeterol Xinafoate/ Fluticasone (Advair 250/50 Diskus) 1 inh BID INH Last administered on 05/09/17 08:36; Admin Dose 1 INH; Start 04/30/17 at 21:00 Amlodipine Besylate (Norvasc) 5 mg BID PO Last administered on 05/09/17 08:39 ; Admin Dose 5 MG; Start 05/03/17 at 21:00 Carvedilol (Coreg) 3.125 mg BID PO Last administered on 05/09/17 08:40; Admin Dose 3.125 MG; Start 05/04/17 at 09:00 Insulin Glargine (Lantus) 28 unit BID SC Last administered on 05/09/17 08:51 ; Admin Dose 28 UNIT; Start 05/08/17 at 21:00 Assessment/Plan Chief Complaint/Hosp Course IMP: 1. Pulmonary edema with COPD exacerbation with interval improvement. 2. End-stage renal disease, on hemodialysis. 3. Anemia. Questionable GI bleed with drop in hemoglobin noted. 4. Diabetes. With hyperglycemia secondary to systemic steroids. 5. History of DVT. 6. History of hypertension. RECS: 1. HD/UF 2. Follow K+ 3. Transfuse PRBC 4. DM control as per Endo dc planning once Hb stable and HD arranged. Problems: BROOKE MARIE MD, [facility] May 09, 2017 12:26
--- NOTE | 2017-05-09 13:38 | CONS ---
Date/Time of Note Date/Time of Note DATE: 05/09/17 TIME: 13:34 Assessment/Plan Assessment/Plan Chief Complaint/Hosp Course Pleasant Litzy gentleman with his family present in the room reporting a 30 year history of diabetes mellitus type 2. He had been on oral agent therapy but as his kidneys declined he was transitioned over to a multiple daily injection regimen using Lantus and NovoLog. He intermittently takes full dose Januvia 100 mg despite his renal dysfunction Problems: (1) Diabetes mellitus type 2 in obese Status: Chronic Comment: As, after coming off the steroids the patient's sugar control has become significantly easier to manage. Because of this I need to titrate down on the insulin dosages in a sequential fashion. Do not believe this represents an adrenal insufficiency. (2) End stage renal disease on dialysis due to type 2 diabetes mellitus Status: Chronic Comment: As per nephrology. (3) COPD (chronic obstructive pulmonary disease) Status: Chronic Comment: Breathing is stable on medications. Qualifiers: COPD type: emphysema Emphysema type: unspecified Qualified Code: J43.9 - Pulmonary emphysema, unspecified emphysema type (4) Normocytic anemia Status: Acute Comment: We have been working on the presumption this is GI blood loss. Please note her orders for stool for occult blood or not yet in the lab. Regardless the haptoglobin is unmeasurable. I am concerned this may actually also be a hemolytic anemia. A consideration would be to get a hematology consultation. Please note this can be seen in chronic active hepatitis C (5) Essential hypertension Status: Chronic Comment: Adequate control (6) Diastolic dysfunction Status: Chronic Comment: Patient is stable on beta-fabiana. A consideration to use metoprolol since is more cardioselective than the carvedilol is an intellectual thought I will defer off to the bank boss of course (7) Coronary artery disease Status: Chronic Comment: Quiescent Qualifiers: Coronary Disease-Associated Artery/Lesion type: [place] artery [place] vs. transplanted heart: [place] heart Associated angina: without angina Qualified Code: I25.10 - Coronary artery disease involving [place] coronary artery of [place] heart without angina pectoris (8) Hyperuricemia Status: Chronic Comment: Noted Consultation Date/Type/Reason Admit Date/Time Apr 24, 2017 at 19:05 Initial Consult Date 04/27/17 Type of Consultation: Endocrinology Reason for Consultation Diabetes mellitus type 2 on multiple daily injection regimen and DPP 4 inhibitor. 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 In addition to this for current anemia which may not be GI loss Referring Provider: NANY PRIEST TEAM LEADER/RESEARCH PSYCHOLOGIST 24 HR Interval Summary Free Text/Dictation Patient is irritated about hypoglycemia since coming off of steroid supplementation. Exam/Review of Systems Vital Signs Vitals Vital Signs Date Time Temp Pulse Resp B/P Pulse Ox O2 Delivery O2 Flow Rate FiO2 05/09/17 12:53 80 18 95 21 05/09/17 11:39 98.1 145/63 05/08/17 17:21 Nasal Cannula 2.0 Intake and Output 05/08/17 05/08/17 05/09/17 15:00 23:00 07:00 Intake Total 900 ml 500 ml Balance 900 ml 500 ml Exam Constitutional: alert, oriented Neck: non-tender, supple Respiratory: clear to auscultation, normal air movement Results Result Diagram: 05/09/17 0830 05/09/17 0830 Results 24 hrs Laboratory Tests Test 05/08/17 15:40 05/08/17 16:01 05/08/17 16:33 05/08/17 16:48 Bedside Glucose 47 *L 46 *L 131 138 Test 05/08/17 17:29 05/08/17 18:24 05/08/17 18:40 05/08/17 20:20 Bedside Glucose 168 152 140 Haptoglobin <15 L Test 05/09/17 00:30 05/09/17 00:53 05/09/17 00:54 05/09/17 08:04 Bedside Glucose 37 *L 157 190 Glucose Level 148 # Test 05/09/17 08:30 05/09/17 11:56 White Blood Count 10.3 Red Blood Count 1.99 L Hemoglobin 6.3 *L Hematocrit 18.9 L Mean Corpuscular Volume 95.0 Mean Corpuscular Hemoglobin 31.7 Mean Corpuscular Hemoglobin Concent 33.3 Red Cell Distribution Width 18.6 H Platelet Count 198 Mean Platelet Volume 12.1 H Neutrophils % Segmented Neutrophils % (Manual) 74 Band Neutrophils % (Manual) 3 Lymphocytes % Lymphocytes % (Manual) 16 Monocytes % Monocytes % (Manual) 6 Eosinophils % Eosinophils % (Manual) 1 Basophils % Nucleated Red Blood Cells % 0.0 Neutrophils # Neutrophils # (Manual) 7.7 H Band Neutrophils # 0.3 Absolute Lymphocytes (Manual) 1.6 Lymphocytes # Monocytes # Absolute Monocytes (Manual) 0.6 Eosinophils # Basophils # Nucleated Red Blood Cells # Platelet Estimate DECREASED Polychromasia 3+ Poikilocytosis 3+ Anisocytosis 2+ Microcytosis 2+ Sodium Level 138 Potassium Level 4.3 Chloride Level 100 Carbon Dioxide Level 30 Anion Gap 12 Blood Urea Nitrogen 39 H Creatinine 3.52 H Glucose Level 164 Calcium Level 8.5 Phosphorus Level 3.2 Magnesium Level 1.7 Bedside Glucose 80 Medications Medications Current Medications Ondansetron HCl (Zofran Tab) 4 mg Q6H PRN PO NAUSEA AND/OR VOMITING; Start at 23:00 Nitroglycerin (Nitroglycerin (Sl Tab) 0.4 Mg) 1 tab Q5M PRN SL CHEST PAIN; Start 04/24/17 at 23:00 Docusate Sodium (Colace) 100 mg Q12H PRN PO CONSTIPATION; Start 04/24/17 at 23 :00 Bisacodyl (Dulcolax) 5 mg DAILY PRN PO CONSTIPATION; Start 04/24/17 at 23:00 Atorvastatin Calcium (Lipitor) 80 mg QHS PO Last administered on 05/08/17 20: 18; Admin Dose 80 MG; Start 04/25/17 at 21:00 Ergocalciferol (Drisdol) 50,000 unit Mo@09 PO Last administered on 05/06/17 09:13; Admin Dose 50,000 UNIT; Start 04/24/17 at 23:00 Ferrous Sulfate (Ferrous Sulfate (Ec)) 325 mg DAILY PO Last administered on 08:37; Admin Dose 325 MG; Start 04/25/17 at 09:00 Multivit/Ca Carb/ B Cmplx/FA/Prenat (Isabel-Brenda) 1 tab DAILY PO Last administered on 05/09/17 08:39; Admin Dose 1 TAB; Start 04/25/17 at 09:00 Pantoprazole (Protonix Tab) 40 mg DAILY@06 PO Last administered on 05/09/17 06:18; Admin Dose 40 MG; Start 04/25/17 at 06:00 Guaifenesin/ Dextromethorphan (Mucinex Dm) 1 tab BID PO Last administered on 08:39; Admin Dose 1 TAB; Start 04/25/17 at 03:15 Diagnostic Test (Pha) (Accu-Chek) 1 ea 02 XX Last administered on 05/04/17 02: 00; Admin Dose 1 EA; Start 04/26/17 at 02:00 Citric Acid/ Sodium Citrate (Bicitra) 30 ml TID PO Last administered on 12:32; Admin Dose 30 ML; Start 04/25/17 at 13:00 Aspirin (Aspirin) 81 mg DAILY PO Last administered on 04/30/17 10:05; Admin Dose 81 MG; Start 04/25/17 at 12:00; Status Future Hold Heparin Sodium (Porcine) (Heparin (5000 Units/0.5 ml)) 5,000 unit BID SC Last administered on 05/08/17 09:02; Admin Dose 5,000 UNIT; Start 04/26/17 at 09:00 ; Status Future Hold Miscellaneous Information 1 ea NOTE XX Last administered on 04/30/17 17:45; Admin Dose 1 EA; Start 04/25/17 at 12:00 Glucose (Glutose) 15 gm Q15M PRN PO DECREASED GLUCOSE; Start 04/25/17 at 12:00 Glucose (Glutose) 22.5 gm Q15M PRN PO DECREASED GLUCOSE; Start 04/25/17 at 12: 00 Dextrose (D50w Syringe) 25 ml Q15M PRN IV DECREASED GLUCOSE Last administered on 05/08/17 16:08; Admin Dose 25 ML; Start 04/25/17 at 12:00 Dextrose (D50w Syringe) 50 ml Q15M PRN IV DECREASED GLUCOSE Last administered on 05/09/17 00:39; Admin Dose 50 ML; Start 04/25/17 at 12:00 Glucagon (Glucagen) 1 mg Q15M PRN IM DECREASED GLUCOSE; Start 04/25/17 at 12: 00 Glucose (Glutose) 15 gm Q15M PRN BUCCAL DECREASED GLUCOSE; Start 04/25/17 at 12:00 Furosemide (Lasix) 20 mg BID IV Last administered on 05/09/17 08:43; Admin Dose 20 MG; Start 04/26/17 at 09:00 Fish Oil (Fish Oil) 2,000 mg BID PO Last administered on 05/09/17 08:38; Admin Dose 2,000 MG; Start 04/27/17 at 21:00 EZETIMIBE (Zetia) 10 mg DAILY PO Last administered on 05/09/17 08:39; Admin Dose 10 MG; Start 04/28/17 at 09:00 Morphine Sulfate (morphine) 2 mg Q4H PRN IV Pain Last administered on 10:24; Admin Dose 2 MG; Start 04/28/17 at 09:00 Linagliptin (Tradjenta) 5 mg DAILY PO Last administered on 05/09/17 08:38; Admin Dose 5 MG; Start 04/28/17 at 12:00 Tiotropium [place] (Spiriva) 1 inh DAILY INH Last administered on 05/09/17 08 :40; Admin Dose 1 INH; Start 04/30/17 at 13:30 Salmeterol Xinafoate/ Fluticasone (Advair 250/50 Diskus) 1 inh BID INH Last administered on 05/09/17 08:36; Admin Dose 1 INH; Start 04/30/17 at 21:00 Amlodipine Besylate (Norvasc) 5 mg BID PO Last administered on 05/09/17 08:39 ; Admin Dose 5 MG; Start 05/03/17 at 21:00 Carvedilol (Coreg) 3.125 mg BID PO Last administered on 05/09/17 08:40; Admin Dose 3.125 MG; Start 05/04/17 at 09:00 Insulin Glargine (Lantus) 28 unit BID SC Last administered on 05/09/17 08:51 ; Admin Dose 28 UNIT; Start 05/08/17 at 21:00 MARA GRAYSON MD May 09, 2017 13:38
--- NOTE | 2017-05-09 15:24 | CONS ---
Date/Time of Note Date/Time of Note DATE: 05/09/17 TIME: 15:22 Assessment/Plan Assessment/Plan Additional Assessment/Plan Volume overload Acute kidney injury with history of CKD, started on hemodialysis Acute decompensated diastolic congestive heart failure Diabetes CAD with history of PCI over 10 years ago Hypertension Dyslipidemia History of DVT, previously on anticoagulation Acute blood loss anemia status post blood transfusion Intermittent Mobitz type I, asymptomatic - Aspirin and anticoagulation have been stopped secondary to recurrent anemia requiring blood transfusion. Fluid management via hemodialysis as per our nephrology colleagues. Blood pressure trend overall stable. Continue statin therapy. Consultation Date/Type/Reason Admit Date/Time Apr 24, 2017 at 19:05 Initial Consult Date 04/27/17 Type of Consultation: cv Referring Provider: NANY PRIEST MANUFACTURING AUTOMATION ENGINEER 24 HR Interval Summary Free Text/Dictation Shortness of breath is better. Denies chest pain. Exam/Review of Systems Vital Signs Vitals Vital Signs Date Time Temp Pulse Resp B/P Pulse Ox O2 Delivery O2 Flow Rate FiO2 05/09/17 12:53 80 18 95 21 05/09/17 11:39 98.1 145/63 05/08/17 17:21 Nasal Cannula 2.0 Intake and Output 05/08/17 05/08/17 05/09/17 15:00 23:00 07:00 Intake Total 900 ml 500 ml Balance 900 ml 500 ml Exam Sleeping but arousable, no apparent distress, following commands, family at bedside Head: normocephalic Respiratory: other (Coarse breath sounds bilaterally, no wheezing) Cardiovascular: other (S1-S2 heard), regular rate and rhythm Gastrointestinal: bowel sounds, non-tender, soft Extremities: edema Results Result Diagram: 05/09/17 0830 05/09/17 0830 Results 24 hrs Laboratory Tests Test 05/08/17 15:40 05/08/17 16:01 05/08/17 16:33 05/08/17 16:48 Bedside Glucose 47 *L 46 *L 131 138 Test 05/08/17 17:29 05/08/17 18:24 05/08/17 18:40 05/08/17 20:20 Bedside Glucose 168 152 140 Haptoglobin <15 L Test 05/09/17 00:30 05/09/17 00:53 05/09/17 00:54 05/09/17 08:04 Bedside Glucose 37 *L 157 190 Glucose Level 148 # Test 05/09/17 08:30 05/09/17 11:56 05/09/17 15:19 White Blood Count 10.3 Red Blood Count 1.99 L Hemoglobin 6.3 *L Hematocrit 18.9 L Mean Corpuscular Volume 95.0 Mean Corpuscular Hemoglobin 31.7 Mean Corpuscular Hemoglobin Concent 33.3 Red Cell Distribution Width 18.6 H Platelet Count 198 Mean Platelet Volume 12.1 H Neutrophils % Segmented Neutrophils % (Manual) 74 Band Neutrophils % (Manual) 3 Lymphocytes % Lymphocytes % (Manual) 16 Monocytes % Monocytes % (Manual) 6 Eosinophils % Eosinophils % (Manual) 1 Basophils % Nucleated Red Blood Cells % 0.0 Neutrophils # Neutrophils # (Manual) 7.7 H Band Neutrophils # 0.3 Absolute Lymphocytes (Manual) 1.6 Lymphocytes # Monocytes # Absolute Monocytes (Manual) 0.6 Eosinophils # Basophils # Nucleated Red Blood Cells # Platelet Estimate DECREASED Polychromasia 3+ Poikilocytosis 3+ Anisocytosis 2+ Microcytosis 2+ Sodium Level 138 Potassium Level 4.3 Chloride Level 100 Carbon Dioxide Level 30 Anion Gap 12 Blood Urea Nitrogen 39 H Creatinine 3.52 H Glucose Level 164 Calcium Level 8.5 Phosphorus Level 3.2 Magnesium Level 1.7 Bedside Glucose 80 81 Medications Medications Current Medications Ondansetron HCl (Zofran Tab) 4 mg Q6H PRN PO NAUSEA AND/OR VOMITING; Start at 23:00 Nitroglycerin (Nitroglycerin (Sl Tab) 0.4 Mg) 1 tab Q5M PRN SL CHEST PAIN; Start 04/24/17 at 23:00 Docusate Sodium (Colace) 100 mg Q12H PRN PO CONSTIPATION; Start 04/24/17 at 23 :00 Bisacodyl (Dulcolax) 5 mg DAILY PRN PO CONSTIPATION; Start 04/24/17 at 23:00 Atorvastatin Calcium (Lipitor) 80 mg QHS PO Last administered on 05/08/17 20: 18; Admin Dose 80 MG; Start 04/25/17 at 21:00 Ergocalciferol (Drisdol) 50,000 unit Mo@09 PO Last administered on 05/06/17 09:13; Admin Dose 50,000 UNIT; Start 04/24/17 at 23:00 Ferrous Sulfate (Ferrous Sulfate (Ec)) 325 mg DAILY PO Last administered on 08:37; Admin Dose 325 MG; Start 04/25/17 at 09:00 Multivit/Ca Carb/ B Cmplx/FA/Prenat (Isabel-Brenda) 1 tab DAILY PO Last administered on 05/09/17 08:39; Admin Dose 1 TAB; Start 04/25/17 at 09:00 Pantoprazole (Protonix Tab) 40 mg DAILY@06 PO Last administered on 05/09/17 06:18; Admin Dose 40 MG; Start 04/25/17 at 06:00 Guaifenesin/ Dextromethorphan (Mucinex Dm) 1 tab BID PO Last administered on 08:39; Admin Dose 1 TAB; Start 04/25/17 at 03:15 Diagnostic Test (Pha) (Accu-Chek) 1 ea 02 XX Last administered on 05/04/17 02: 00; Admin Dose 1 EA; Start 04/26/17 at 02:00 Citric Acid/ Sodium Citrate (Bicitra) 30 ml TID PO Last administered on 12:32; Admin Dose 30 ML; Start 04/25/17 at 13:00 Aspirin (Aspirin) 81 mg DAILY PO Last administered on 04/30/17 10:05; Admin Dose 81 MG; Start 04/25/17 at 12:00; Status Future Hold Heparin Sodium (Porcine) (Heparin (5000 Units/0.5 ml)) 5,000 unit BID SC Last administered on 05/08/17 09:02; Admin Dose 5,000 UNIT; Start 04/26/17 at 09:00 ; Status Future Hold Miscellaneous Information 1 ea NOTE XX Last administered on 04/30/17 17:45; Admin Dose 1 EA; Start 04/25/17 at 12:00 Glucose (Glutose) 15 gm Q15M PRN PO DECREASED GLUCOSE; Start 04/25/17 at 12:00 Glucose (Glutose) 22.5 gm Q15M PRN PO DECREASED GLUCOSE; Start 04/25/17 at 12: 00 Dextrose (D50w Syringe) 25 ml Q15M PRN IV DECREASED GLUCOSE Last administered on 05/08/17 16:08; Admin Dose 25 ML; Start 04/25/17 at 12:00 Dextrose (D50w Syringe) 50 ml Q15M PRN IV DECREASED GLUCOSE Last administered on 05/09/17 00:39; Admin Dose 50 ML; Start 04/25/17 at 12:00 Glucagon (Glucagen) 1 mg Q15M PRN IM DECREASED GLUCOSE; Start 04/25/17 at 12: 00 Glucose (Glutose) 15 gm Q15M PRN BUCCAL DECREASED GLUCOSE; Start 04/25/17 at 12:00 Furosemide (Lasix) 20 mg BID IV Last administered on 05/09/17 08:43; Admin Dose 20 MG; Start 04/26/17 at 09:00 Fish Oil (Fish Oil) 2,000 mg BID PO Last administered on 05/09/17 08:38; Admin Dose 2,000 MG; Start 04/27/17 at 21:00 EZETIMIBE (Zetia) 10 mg DAILY PO Last administered on 05/09/17 08:39; Admin Dose 10 MG; Start 04/28/17 at 09:00 Morphine Sulfate (morphine) 2 mg Q4H PRN IV Pain Last administered on 10:24; Admin Dose 2 MG; Start 04/28/17 at 09:00 Linagliptin (Tradjenta) 5 mg DAILY PO Last administered on 05/09/17 08:38; Admin Dose 5 MG; Start 04/28/17 at 12:00 Tiotropium [place] (Spiriva) 1 inh DAILY INH Last administered on 05/09/17 08 :40; Admin Dose 1 INH; Start 04/30/17 at 13:30 Salmeterol Xinafoate/ Fluticasone (Advair 250/50 Diskus) 1 inh BID INH Last administered on 05/09/17 08:36; Admin Dose 1 INH; Start 04/30/17 at 21:00 Amlodipine Besylate (Norvasc) 5 mg BID PO Last administered on 05/09/17 08:39 ; Admin Dose 5 MG; Start 05/03/17 at 21:00 Carvedilol (Coreg) 3.125 mg BID PO Last administered on 05/09/17 08:40; Admin Dose 3.125 MG; Start 05/04/17 at 09:00 Insulin Glargine (Lantus) 22 unit BID SC ; Start 05/09/17 at 21:00 Dell De La Torre DO May 09, 2017 15:24
--- NOTE | 2017-05-09 16:50 | PN ---
Date/Time of Note Date/Time of Note DATE: 05/09/17 TIME: 16:36 Assessment/Plan VTE Prophylaxis VTE Prophylaxis Intervention: ambulation Lines/Catheters IV [facility]ter Type [facility]from [facility]): PERMACATH Urinary Cath still in place: No Assessment/Plan Chief Complaint/Hosp Course Assessment: Anemia GI bleed etiology ruled out EGD 05/03/17 Impression: Moderate distal esophagitis. Post distal gastrectomy Billroth II anastomosis. Moderate bile reflux gastritis. Rule out H. pylori infection. Normal afferent and efferent jejunal mucosa Colonoscopy 05/03/17 Impression: Suboptimal examination due to poor preparation No gross lesions present. Moderate-sized internal hemorrhoids. Diabetes type 2 Acute kidney injury with history of CKD, on hemodialysis Congestive heart failure CAD with history of PCI over 10 years ago Hypertension Dyslipidemia History of DVT, previously on anticoagulation Intermittent Mobitz type I, asymptomatic Plan: Stool sample for fecal occult blood test pending Hematology consult is recommended Small bowel x-ray - negative Monitor H&H and transfuse for hemoglobin less than 7.5 If no evidence of further bleeding repeat colonoscopy within 6 months to a year is recommended Continue PPI therapy Patient seen in collaboration with Subjective: Patient is feeling very fatigued. Today his hemoglobin is 6.3 last blood transfusion was 5 days ago. Mineralist is sending the blood, expect to transfuse tonight. Eating regular diet, reports poor appetite, last bowel movement yesterday evening. Denies melena or hematochezia. Stool sample for fecal occult blood is pending. Close monitoring of H&H and blood glucose. Transfuse for hemoglobin less than 7.5. Consider hematology consult for acute anemia non-GI etiology. Patient has been examined and interviewed. All laboratory values and imaging studies have been reviewed. Course of action discussed with the nursing staff and the family. PHYSICAL EXAMINATION: GENERAL: Well developed, obese, well nourished, alert & oriented x 3, in no acute distress SKIN: No lesions, pale, no stigmata chronic liver disease, no evidence of bleeding diathesis LYMPHATIC: No palpable lymphadenopathy. HEAD: Normocephalic, atraumatic, no tenderness. EYES: Pupils equal reactive to light and accommodation, full extraocular movements, sclera clear, non-icteric, no discharge. EARS/NOSE AND THROAT: Ears normal, nose normal, oropharynx normal, oral membranes well hydrated without lesions. NECK: Supple, no masses, thyroid normal, JVP within normal limits, carotids normal without bruits. CHEST: Inspection within normal limits. Lung sounds are clear on auscultation CARDIOVASCULAR: Heart: Regular rate and rhythm, no murmurs, gallops or rubs. Peripheral pulses present within normal limits, no cyanosis, clubbing or edemas. No pulsatile abdominal mass RESPIRATORY: Lungs clear to auscultation and percussion, no wheezing, no rubs GASTROINTESTINAL AND LIVER: Abdomen: Soft, obese, non tender, non-distended, no hernias, no masses, no organomegaly, no ascites, no guarding, no rebound tenderness, normoactive bowel sounds. Rectal: Deferred. GENITOURINARY: Male genitalia within normal limits. EXTREMITIES: No cyanosis, clubbing or edema. Problems: Exam/Review of Systems Vital Signs Vitals Vital Signs Date Time Temp Pulse Resp B/P Pulse Ox O2 Delivery O2 Flow Rate FiO2 05/09/17 15:39 97.7 85 17 106/66 99 05/09/17 12:53 21 05/08/17 17:21 Nasal Cannula 2.0 Intake and Output 05/08/17 05/08/17 05/09/17 15:00 23:00 07:00 Intake Total 900 ml 500 ml Balance 900 ml 500 ml Results Result Diagram: 05/09/17 0830 05/09/17 0830 Results 24 hrs Laboratory Tests Test 05/08/17 16:48 05/08/17 17:29 05/08/17 18:24 05/08/17 18:40 Bedside Glucose 138 168 152 Haptoglobin <15 L Test 05/08/17 20:20 05/09/17 00:30 05/09/17 00:53 05/09/17 00:54 Bedside Glucose 140 37 *L 157 Glucose Level 148 # Test 05/09/17 08:04 05/09/17 08:30 05/09/17 11:56 05/09/17 15:19 Bedside Glucose 190 80 81 White Blood Count 10.3 Red Blood Count 1.99 L Hemoglobin 6.3 *L Hematocrit 18.9 L Mean Corpuscular Volume 95.0 Mean Corpuscular Hemoglobin 31.7 Mean Corpuscular Hemoglobin Concent 33.3 Red Cell Distribution Width 18.6 H Platelet Count 198 Mean Platelet Volume 12.1 H Neutrophils % Segmented Neutrophils % (Manual) 74 Band Neutrophils % (Manual) 3 Lymphocytes % Lymphocytes % (Manual) 16 Monocytes % Monocytes % (Manual) 6 Eosinophils % Eosinophils % (Manual) 1 Basophils % Nucleated Red Blood Cells % 0.0 Neutrophils # Neutrophils # (Manual) 7.7 H Band Neutrophils # 0.3 Absolute Lymphocytes (Manual) 1.6 Lymphocytes # Monocytes # Absolute Monocytes (Manual) 0.6 Eosinophils # Basophils # Nucleated Red Blood Cells # Platelet Estimate DECREASED Polychromasia 3+ Poikilocytosis 3+ Anisocytosis 2+ Microcytosis 2+ Sodium Level 138 Potassium Level 4.3 Chloride Level 100 Carbon Dioxide Level 30 Anion Gap 12 Blood Urea Nitrogen 39 H Creatinine 3.52 H Glucose Level 164 Calcium Level 8.5 Phosphorus Level 3.2 Magnesium Level 1.7 Medications Medications Current Medications Ondansetron HCl (Zofran Tab) 4 mg Q6H PRN PO NAUSEA AND/OR VOMITING; Start at 23:00 Nitroglycerin (Nitroglycerin (Sl Tab) 0.4 Mg) 1 tab Q5M PRN SL CHEST PAIN; Start 04/24/17 at 23:00 Docusate Sodium (Colace) 100 mg Q12H PRN PO CONSTIPATION; Start 04/24/17 at 23 :00 Bisacodyl (Dulcolax) 5 mg DAILY PRN PO CONSTIPATION; Start 04/24/17 at 23:00 Atorvastatin Calcium (Lipitor) 80 mg QHS PO Last administered on 05/08/17 20: 18; Admin Dose 80 MG; Start 04/25/17 at 21:00 Ergocalciferol (Drisdol) 50,000 unit Mo@09 PO Last administered on 05/06/17 09:13; Admin Dose 50,000 UNIT; Start 04/24/17 at 23:00 Ferrous Sulfate (Ferrous Sulfate (Ec)) 325 mg DAILY PO Last administered on 08:37; Admin Dose 325 MG; Start 04/25/17 at 09:00 Multivit/Ca Carb/ B Cmplx/FA/Prenat (Isabel-Brenda) 1 tab DAILY PO Last administered on 05/09/17 08:39; Admin Dose 1 TAB; Start 04/25/17 at 09:00 Pantoprazole (Protonix Tab) 40 mg DAILY@06 PO Last administered on 05/09/17 06:18; Admin Dose 40 MG; Start 04/25/17 at 06:00 Guaifenesin/ Dextromethorphan (Mucinex Dm) 1 tab BID PO Last administered on 08:39; Admin Dose 1 TAB; Start 04/25/17 at 03:15 Diagnostic Test (Pha) (Accu-Chek) 1 ea 02 XX Last administered on 05/04/17 02: 00; Admin Dose 1 EA; Start 04/26/17 at 02:00 Citric Acid/ Sodium Citrate (Bicitra) 30 ml TID PO Last administered on 12:32; Admin Dose 30 ML; Start 04/25/17 at 13:00 Aspirin (Aspirin) 81 mg DAILY PO Last administered on 04/30/17 10:05; Admin Dose 81 MG; Start 04/25/17 at 12:00; Status Future Hold Heparin Sodium (Porcine) (Heparin (5000 Units/0.5 ml)) 5,000 unit BID SC Last administered on 05/08/17 09:02; Admin Dose 5,000 UNIT; Start 04/26/17 at 09:00 ; Status Future Hold Miscellaneous Information 1 ea NOTE XX Last administered on 04/30/17 17:45; Admin Dose 1 EA; Start 04/25/17 at 12:00 Glucose (Glutose) 15 gm Q15M PRN PO DECREASED GLUCOSE; Start 04/25/17 at 12:00 Glucose (Glutose) 22.5 gm Q15M PRN PO DECREASED GLUCOSE; Start 04/25/17 at 12: 00 Dextrose (D50w Syringe) 25 ml Q15M PRN IV DECREASED GLUCOSE Last administered on 05/08/17 16:08; Admin Dose 25 ML; Start 04/25/17 at 12:00 Dextrose (D50w Syringe) 50 ml Q15M PRN IV DECREASED GLUCOSE Last administered on 05/09/17 00:39; Admin Dose 50 ML; Start 04/25/17 at 12:00 Glucagon (Glucagen) 1 mg Q15M PRN IM DECREASED GLUCOSE; Start 04/25/17 at 12: 00 Glucose (Glutose) 15 gm Q15M PRN BUCCAL DECREASED GLUCOSE; Start 04/25/17 at 12:00 Furosemide (Lasix) 20 mg BID IV Last administered on 05/09/17 08:43; Admin Dose 20 MG; Start 04/26/17 at 09:00 Fish Oil (Fish Oil) 2,000 mg BID PO Last administered on 05/09/17 08:38; Admin Dose 2,000 MG; Start 04/27/17 at 21:00 EZETIMIBE (Zetia) 10 mg DAILY PO Last administered on 05/09/17 08:39; Admin Dose 10 MG; Start 04/28/17 at 09:00 Morphine Sulfate (morphine) 2 mg Q4H PRN IV Pain Last administered on 10:24; Admin Dose 2 MG; Start 04/28/17 at 09:00 Linagliptin (Tradjenta) 5 mg DAILY PO Last administered on 05/09/17 08:38; Admin Dose 5 MG; Start 04/28/17 at 12:00 Tiotropium [place] (Spiriva) 1 inh DAILY INH Last administered on 05/09/17 08 :40; Admin Dose 1 INH; Start 04/30/17 at 13:30 Salmeterol Xinafoate/ Fluticasone (Advair 250/50 Diskus) 1 inh BID INH Last administered on 05/09/17 08:36; Admin Dose 1 INH; Start 04/30/17 at 21:00 Amlodipine Besylate (Norvasc) 5 mg BID PO Last administered on 05/09/17 08:39 ; Admin Dose 5 MG; Start 05/03/17 at 21:00 Carvedilol (Coreg) 3.125 mg BID PO Last administered on 05/09/17 08:40; Admin Dose 3.125 MG; Start 05/04/17 at 09:00 Insulin Glargine (Lantus) 22 unit BID SC ; Start 05/09/17 at 21:00 Copies To: CC: GERMÁN WAY MD, ANASTASIA NP May 09, 2017 16:50
[2017-05-09] MEDS: ATORVASTATIN 80 MG TAB PO SCH (21:58)
--- NOTE | 2017-05-09 22:10 | CONS ---
Date/Time of Note Date/Time of Note DATE: 05/09/17 TIME: 22:07 Assessment/Plan Assessment/Plan Additional Assessment/Plan 1. 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 H/o CKD due to diabetic nehropathy as per pt was stage IV/V with eGFR 15 as outpatient 3. Acute hyperkalemia due to TROY on CKD - resolved after pt gets started on HD 4. Metabolic acidosis due to worsenign renal failure 5. H/ CAD S/p previous coronary angiogram as per patient 6. Hypertension 7. Type II DM 8. Hyperlipidemia 9. Acute NSETMI due to CHF 10. severe anemia despite getting PRBC, concerned abotu GI bleeding, Plan : hepatitis C antibody positive, Hepatitis A antibody positive EGD showed distal esophagitis, Plan for HD tomorrow Hb dropped to 6.7- awaiting [facility] HD placement confirmed at [facility] - [facility] [place] is MWF on Epogen for anemia will follow up Consultation Date/Type/Reason Admit Date/Time Apr 24, 2017 at 19:05 Initial Consult Date 04/25/17 Type of Consultation: NEPHROLOGY Referring Provider: NANY PRIEST NP 24 HR Interval Summary Free Text/Dictation Hb dropped to 6.3, Bp stable, afebrile Exam/Review of Systems Vital Signs Vitals Vital Signs Date Time Temp Pulse Resp B/P Pulse Ox O2 Delivery O2 Flow Rate FiO2 05/09/17 20:20 80 20 96 21 05/09/17 19:53 97.6 130/61 05/08/17 17:21 Nasal Cannula 2.0 Intake and Output 05/08/17 05/08/17 05/09/17 15:00 23:00 07:00 Intake Total 900 ml 500 ml Balance 900 ml 500 ml Exam Constitutional: alert Respiratory: clear to auscultation, diminished breath sounds, normal air movement, + right chest permacath Cardiovascular: nl pulses, regular rate and rhythm Gastrointestinal: non-tender, soft Musculoskeletal: muscle weakness, nl extremities to inspection, swelling Extremities: calf tenderness, normal pulses 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: [employer]MING IN[employer] II-XII intact, nl mental status, nl speech, nl strength Results Result Diagram: 05/09/1782905/09/17 0830 Results 24 hrs Laboratory Tests Test 05/09/17 00:30 05/09/17 00:53 05/09/17 00:54 05/09/17 08:04 Bedside Glucose 37 *L 157 190 Glucose Level 148 # Test 05/09/17 08:30 05/09/17 11:56 05/09/17 15:19 05/09/17 17:31 White Blood Count 10.3 Red Blood Count 1.99 L Hemoglobin 6.3 *L Hematocrit 18.9 L Mean Corpuscular Volume 95.0 Mean Corpuscular Hemoglobin 31.7 Mean Corpuscular Hemoglobin Concent 33.3 Red Cell Distribution Width 18.6 H Platelet Count 198 Mean Platelet Volume 12.1 H Neutrophils % Segmented Neutrophils % (Manual) 74 Band Neutrophils % (Manual) 3 Lymphocytes % Lymphocytes % (Manual) 16 Monocytes % Monocytes % (Manual) 6 Eosinophils % Eosinophils % (Manual) 1 Basophils % Nucleated Red Blood Cells % 0.0 Neutrophils # Neutrophils # (Manual) 7.7 H Band Neutrophils # 0.3 Absolute Lymphocytes (Manual) 1.6 Lymphocytes # Monocytes # Absolute Monocytes (Manual) 0.6 Eosinophils # Basophils # Nucleated Red Blood Cells # Platelet Estimate DECREASED Polychromasia 3+ Poikilocytosis 3+ Anisocytosis 2+ Microcytosis 2+ Sodium Level 138 Potassium Level 4.3 Chloride Level 100 Carbon Dioxide Level 30 Anion Gap 12 Blood Urea Nitrogen 39 H Creatinine 3.52 H Glucose Level 164 Calcium Level 8.5 Phosphorus Level 3.2 Magnesium Level 1.7 Bedside Glucose 80 81 114 Medications Medications Current Medications Ondansetron HCl (Zofran Tab) 4 mg Q6H PRN PO NAUSEA AND/OR VOMITING; Start at 23:00 Nitroglycerin (Nitroglycerin (Sl Tab) 0.4 Mg) 1 tab Q5M PRN SL CHEST PAIN; Start 04/24/17 at 23:00 Docusate Sodium (Colace) 100 mg Q12H PRN PO CONSTIPATION; Start 04/24/17 at 23 :00 Bisacodyl (Dulcolax) 5 mg DAILY PRN PO CONSTIPATION; Start 04/24/17 at 23:00 Atorvastatin Calcium (Lipitor) 80 mg QHS PO Last administered on 05/08/17t 20: 18; Admin Dose 80 MG; Start 04/25/17 at 21:00 Ergocalciferol (Drisdol) 50,000 unit Mo@09 PO Last administered on 05/06/17 09:13; Admin Dose 50,000 UNIT; Start 04/24/17 at 23:00 Ferrous Sulfate (Ferrous Sulfate (Ec)) 325 mg DAILY PO Last administered on 08:37; Admin Dose 325 MG; Start 04/25/17 at 09:00 Multivit/Ca Carb/ B Cmplx/FA/Prenat (Isabel-Brenda) 1 tab DAILY PO Last administered on 05/09/17 08:39; Admin Dose 1 TAB; Start 04/25/17 at 09:00 Pantoprazole (Protonix Tab) 40 mg DAILY@06 PO Last administered on 05/09/17 06:18; Admin Dose 40 MG; Start 04/25/17 at 06:00 Guaifenesin/ Dextromethorphan (Mucinex Dm) 1 tab BID PO Last administered on 08:39; Admin Dose 1 TAB; Start 04/25/17 at 03:15 Diagnostic Test (Pha) (Accu-Chek) 1 ea 02 XX Last administered on 05/04/17 02: 00; Admin Dose 1 EA; Start 04/26/17 at 02:00 Citric Acid/ Sodium Citrate (Bicitra) 30 ml TID PO Last administered on 12:32; Admin Dose 30 ML; Start 04/25/17 at 13:00 Aspirin (Aspirin) 81 mg DAILY PO Last administered on 04/30/17 10:05; Admin Dose 81 MG; Start 04/25/17 at 12:00; Status Future Hold Heparin Sodium (Porcine) (Heparin (5000 Units/0.5 ml)) 5,000 unit BID SC Last administered on 05/08/17 09:02; Admin Dose 5,000 UNIT; Start 04/26/17 at 09:00 ; Status Future Hold Miscellaneous Information 1 ea NOTE XX Last administered on 04/30/17 17:45; Admin Dose 1 EA; Start 04/25/17 at 12:00 Glucose (Glutose) 15 gm Q15M PRN PO DECREASED GLUCOSE; Start 04/25/17 at 12:00 Glucose (Glutose) 22.5 gm Q15M PRN PO DECREASED GLUCOSE; Start 04/25/17 at 12: 00 Dextrose (D50w Syringe) 25 ml Q15M PRN IV DECREASED GLUCOSE Last administered on 05/08/17 16:08; Admin Dose 25 ML; Start 04/25/17 at 12:00 Dextrose (D50w Syringe) 50 ml Q15M PRN IV DECREASED GLUCOSE Last administered on 05/09/17 00:39; Admin Dose 50 ML; Start 04/25/17 at 12:00 Glucagon (Glucagen) 1 mg Q15M PRN IM DECREASED GLUCOSE; Start 04/25/17 at 12: 00 Glucose (Glutose) 15 gm Q15M PRN BUCCAL DECREASED GLUCOSE; Start 04/25/17 at 12:00 Furosemide (Lasix) 20 mg BID IV Last administered on 05/09/17 08:43; Admin Dose 20 MG; Start 04/26/17 at 09:00 Fish Oil (Fish Oil) 2,000 mg BID PO Last administered on 05/09/17 08:38; Admin Dose 2,000 MG; Start 04/27/17 at 21:00 EZETIMIBE (Zetia) 10 mg DAILY PO Last administered on 05/09/17 08:39; Admin Dose 10 MG; Start 04/28/17 at 09:00 Morphine Sulfate (morphine) 2 mg Q4H PRN IV Pain Last administered on 10:24; Admin Dose 2 MG; Start 04/28/17 at 09:00 Linagliptin (Tradjenta) 5 mg DAILY PO Last administered on 05/09/17 08:38; Admin Dose 5 MG; Start 04/28/17 at 12:00 Tiotropium [place] (Spiriva) 1 inh DAILY INH Last administered on 05/09/17 08 :40; Admin Dose 1 INH; Start 04/30/17 at 13:30 Salmeterol Xinafoate/ Fluticasone (Advair 250/50 Diskus) 1 inh BID INH Last administered on 05/09/17 08:36; Admin Dose 1 INH; Start 04/30/17 at 21:00 Amlodipine Besylate (Norvasc) 5 mg BID PO Last administered on 05/09/17 08:39 ; Admin Dose 5 MG; Start 05/03/17 at 21:00 Carvedilol (Coreg) 3.125 mg BID PO Last administered on 05/09/17t 08:40; Admin Dose 3.125 MG; Start 05/04/17 at 09:00 Insulin Glargine (Lantus) 22 unit BID SC ; Start 05/09/17 at 21:00 RAQUEL MCDOWELL MD May 09, 2017 22:10
[2017-05-10] VITALS (16 sets, daily range): BP systolic 111–151; BP diastolic 61–79; PULSE 63–86; RESP 18–20
[2017-05-10] MEDS: ALBUTEROL/IPRATROPIUM (NEB) 3 ML AMP HHN SCH ×6 (01:57→20:16)
[2017-05-10] MEDS: ACCU-CHEK XX SCH (02:00)
[2017-05-10] MEDS: PANTOPRAZOLE (EC) 40 MG TAB PO SCH (06:10)
[2017-05-10 07:05] LABS: ABNORMAL IP MESSAGE 1; BASOPHILS % 0.4 % (0.0-2.0); EOSINOPHILS # 0.3 10^3/ul (0.0-0.5); LYMPHOCYTES # 1.5 10^3/ul (0.8-2.9); LYMPHOCYTES % 16.7 % (15.0-51.0); MEAN PLATELET VOLUME 12.7 fl (7.4-10.4); MONOCYTE # 0.7 10^3/ul (0.3-0.9); MONOCYTES % 7.9 % (0.0-11.0); NEUTROPHIL # 6.3 10^3/ul (1.6-7.5); NEUTROPHILS % 71.3 % (39.0-77.0); PLATELET COUNT 186 10^3/UL (140-415); POSITIVE DIFF @See below; WHITE BLOOD COUNT 8.9 10^3/ul (4.8-10.8)
[2017-05-10 07:36] LABS: MAGNESIUM 1.6 mg/dl (1.7-2.5); PHOSPHORUS 3.4 mg/dl (2.5-4.9)
[2017-05-10 07:38] LABS: CALCIUM 8.7 mg/dl (8.4-10.2); POTASSIUM 4.2 mmol/L (3.5-5.1)
[2017-05-10] MEDS: INSULIN ASPART [NOVOLOG] 3 ML PEN SC SCH ×7 (07:55→21:00)
[2017-05-10] MEDS: EZETIMIBE 10 MG TAB PO SCH (08:42)
[2017-05-10] MEDS: GUAIFENESIN/DM (SR) TAB PO SCH ×2 (08:42→21:45)
[2017-05-10] MEDS: AMLODIPINE 5 MG TAB PO SCH ×2 (08:43→21:46)
[2017-05-10] MEDS: SALMETEROL/FLUTICASONE 250/50 INHA INH SCH ×2 (08:43→21:44)
[2017-05-10] MEDS: MULTIVIT/CA CARB/B CMPLX/FA TAB PO SCH (08:44)
[2017-05-10] MEDS: CITRIC ACID/SODIUM CITRATE 15 ML CUP PO SCH ×3 (08:44→21:45)
[2017-05-10] MEDS: TIOTROPIUM 18 MCG CAPSULE INHA DEV INH SCH (08:44)
[2017-05-10] MEDS: FUROSEMIDE 20 MG INJ IV SCH ×2 (08:45→21:45)
[2017-05-10] MEDS: LINAGLIPTIN 5 MG TABLET PO SCH (08:45)
[2017-05-10] MEDS: FERROUS SULFATE (EC) 325 MG TAB PO SCH (08:45)
[2017-05-10] MEDS: FISH OIL 1,000 MG CAP PO SCH ×2 (08:45→21:45)
[2017-05-10] MEDS: INSULIN GLARGINE [LANtus] 3 ML PEN SC SCH ×2 (08:54→21:00)
[2017-05-10 09:05] LABS: RED BLOOD COUNT 3.16 10^6/ul (4.70-6.10)
[2017-05-10 09:06] LABS: HEMATOCRIT 29.7 % (42.0-52.0)
[2017-05-10 09:07] LABS: HEMOGLOBIN 9.8 g/dl (14.0-18.0)
--- NOTE | 2017-05-10 11:00 | CONS ---
Date/Time of Note Date/Time of Note DATE: 05/10/17 TIME: 10:48 Assessment/Plan Assessment/Plan Additional Assessment/Plan 66 yo man who is referred for anemia that is of unclear etiology. He has been given 6 units of blood during the hospitalization but no clear bleeding issues are noted. Heparin and aspirin have been held. There is one haptoglobin that is low. In addition an unconjugated hyperbilirubinemia is noted although the total bilirubin was 0.6 when he was admitted. I will recheck blood work to see what his reticulocyte count is and whether there is evidence of hemolysis in the coming days. Try to avoid transfusion for the present. (Hgb is 9.8 today.) Thanks you for calling us Consultation Date/Type/Reason Admit Date/Time Apr 24, 2017 at 19:05 Date of Consultation: May 10, 2017 Type of Consultation: Hematology Reason for Consultation Anemia Referring Provider: BENJAMIN VELEZ NP Hx of Present Illness 66 yo man referred for anemia. I spoke with pt, and Benjamin Velez. In brief he has required RBC transfusions and it is unclear as to how much bleeding there has been. He has numerous medical problems that include diabetes, renal failure requiring dialysis, COPD, CHF, hypertension, dyslipidemia, venous thrombosis on anticoagulation but anticoagulation held because of anemia, esophagitis. No clinical bleeding is presently noted. Past Medical History Medical History: coronary artery disease, deep vein thrombosis, diabetes, high cholesterol, hypertension, renal disease Past Surgical History Past Surgical Hx: other Social History Alcohol Use: occasionally Smoking Status: Former smoker Drug Use: none Exam/Review of Systems Vital Signs Vitals Vital Signs Date Time Temp Pulse Resp B/P Pulse Ox O2 Delivery O2 Flow Rate FiO2 05/10/17 08:33 83 18 96 21 05/10/17 07:21 98.1 151/65 05/08/17 17:21 Nasal Cannula 2.0 Intake and Output 05/09/17 05/09/17 05/10/17 14:59 22:59 06:59 Intake Total 800 ml 800 ml Output Total 600 ml Balance 800 ml 200 ml Exam Constitutional: alert, obese Head: normocephalic Eyes: other (moderate pallor) ENMT: nl external ears & nose Neck: supple Respiratory: clear to auscultation Cardiovascular: regular rate and rhythm Gastrointestinal: nl liver, spleen, non-tender, soft Musculoskeletal: nl extremities to inspection, other (dialysis is currently being done.) Results Result Diagram: 05/10/17 0629 05/10/17 0629 Results 24 hrs Laboratory Tests Test 05/09/17 11:56 05/09/17 15:19 05/09/17 17:31 05/09/17 22:01 Bedside Glucose 80 81 114 164 Test 05/10/17 06:29 05/10/17 07:56 White Blood Count 8.9 Red Blood Count 3.16 #L Hemoglobin 9.8 #L Hematocrit 29.7 #L Mean Corpuscular Volume 94.0 Mean Corpuscular Hemoglobin 31.0 Mean Corpuscular Hemoglobin Concent 33.0 Red Cell Distribution Width Platelet Count 186 Mean Platelet Volume 12.7 H Neutrophils % 71.3 Lymphocytes % 16.7 Monocytes % 7.9 Eosinophils % 3.0 Basophils % 0.4 Nucleated Red Blood Cells % 0.0 Neutrophils # 6.3 Lymphocytes # 1.5 Monocytes # 0.7 Eosinophils # 0.3 Basophils # 0.0 Nucleated Red Blood Cells # 0.0 Sodium Level 138 Potassium Level 4.2 Chloride Level 99 Carbon Dioxide Level 30 Anion Gap 13 Blood Urea Nitrogen 50 H Creatinine 4.00 H Glucose Level 89 # Calcium Level 8.7 Phosphorus Level 3.4 Magnesium Level 1.6 L Bedside Glucose 116 Medications Medications Current Medications Ondansetron HCl (Zofran Tab) 4 mg Q6H PRN PO NAUSEA AND/OR VOMITING; Start at 23:00 Nitroglycerin (Nitroglycerin (Sl Tab) 0.4 Mg) 1 tab Q5M PRN SL CHEST PAIN; Start 04/24/17 at 23:00 Docusate Sodium (Colace) 100 mg Q12H PRN PO CONSTIPATION; Start 04/24/17 at 23 :00 Bisacodyl (Dulcolax) 5 mg DAILY PRN PO CONSTIPATION; Start 04/24/17 at 23:00 Atorvastatin Calcium (Lipitor) 80 mg QHS PO Last administered on 05/09/17 21: 58; Admin Dose 80 MG; Start 04/25/17 at 21:00 Ergocalciferol (Drisdol) 50,000 unit Mo@09 PO Last administered on 05/06/17 09:13; Admin Dose 50,000 UNIT; Start 04/24/17 at 23:00 Ferrous Sulfate (Ferrous Sulfate (Ec)) 325 mg DAILY PO Last administered on 08:45; Admin Dose 325 MG; Start 04/25/17 at 09:00 Multivit/Ca Carb/ B Cmplx/FA/Prenat (Isabel-Brenda) 1 tab DAILY PO Last administered on 05/10/17 08:44; Admin Dose 1 TAB; Start 04/25/17 at 09:00 Pantoprazole (Protonix Tab) 40 mg DAILY@06 PO Last administered on 05/10/17 06:10; Admin Dose 40 MG; Start 04/25/17 at 06:00 Guaifenesin/ Dextromethorphan (Mucinex Dm) 1 tab BID PO Last administered on 08:42; Admin Dose 1 TAB; Start 04/25/17 at 03:15 Diagnostic Test (Pha) (Accu-Chek) 1 ea 02 XX Last administered on 05/04/17 02: 00; Admin Dose 1 EA; Start 04/26/17 at 02:00 Citric Acid/ Sodium Citrate (Bicitra) 30 ml TID PO Last administered on 08:44; Admin Dose 30 ML; Start 04/25/17 at 13:00 Aspirin (Aspirin) 81 mg DAILY PO Last administered on 04/30/17 10:05; Admin Dose 81 MG; Start 04/25/17 at 12:00; Status Future Hold Heparin Sodium (Porcine) (Heparin (5000 Units/0.5 ml)) 5,000 unit BID SC Last administered on 05/08/17 09:02; Admin Dose 5,000 UNIT; Start 04/26/17 at 09:00 ; Status Future Hold Miscellaneous Information 1 ea NOTE XX Last administered on 04/30/17 17:45; Admin Dose 1 EA; Start 04/25/17 at 12:00 Glucose (Glutose) 15 gm Q15M PRN PO DECREASED GLUCOSE; Start 04/25/17 at 12:00 Glucose (Glutose) 22.5 gm Q15M PRN PO DECREASED GLUCOSE; Start 04/25/17 at 12: 00 Dextrose (D50w Syringe) 25 ml Q15M PRN IV DECREASED GLUCOSE Last administered on 05/08/17 16:08; Admin Dose 25 ML; Start 04/25/17 at 12:00 Dextrose (D50w Syringe) 50 ml Q15M PRN IV DECREASED GLUCOSE Last administered on 05/09/17 00:39; Admin Dose 50 ML; Start 04/25/17 at 12:00 Glucagon (Glucagen) 1 mg Q15M PRN IM DECREASED GLUCOSE; Start 04/25/17 at 12: 00 Glucose (Glutose) 15 gm Q15M PRN BUCCAL DECREASED GLUCOSE; Start 04/25/17 at 12:00 Furosemide (Lasix) 20 mg BID IV Last administered on 05/10/17 08:45; Admin Dose 20 MG; Start 04/26/17 at 09:00 Fish Oil (Fish Oil) 2,000 mg BID PO Last administered on 05/10/17 08:45; Admin Dose 2,000 MG; Start 04/27/17 at 21:00 EZETIMIBE (Zetia) 10 mg DAILY PO Last administered on 05/10/17 08:42; Admin Dose 10 MG; Start 04/28/17 at 09:00 Morphine Sulfate (morphine) 2 mg Q4H PRN IV Pain Last administered on 10:24; Admin Dose 2 MG; Start 04/28/17 at 09:00 Linagliptin (Tradjenta) 5 mg DAILY PO Last administered on 05/10/17 08:45; Admin Dose 5 MG; Start 04/28/17 at 12:00 Tiotropium [place] (Spiriva) 1 inh DAILY INH Last administered on 05/10/17 08 :44; Admin Dose 1 INH; Start 04/30/17 at 13:30 Salmeterol Xinafoate/ Fluticasone (Advair 250/50 Diskus) 1 inh BID INH Last administered on 05/10/17 08:43; Admin Dose 1 INH; Start 04/30/17 at 21:00 Amlodipine Besylate (Norvasc) 5 mg BID PO Last administered on 05/10/17 08:43 ; Admin Dose 5 MG; Start 05/03/17 at 21:00 Carvedilol (Coreg) 3.125 mg BID PO Last administered on 05/10/17 08:45; Admin Dose 3.125 MG; Start 05/04/17 at 09:00 Insulin Glargine (Lantus) 22 unit BID SC Last administered on 12/15/17at 08:54 ; Admin Dose 22 UNIT; Start 05/09/17 at 21:00 WILLIAM YEE MD May 10, 2017 11:00
--- NOTE | 2017-05-10 13:46 | PN ---
Date/Time of Note Date/Time of Note DATE: 05/10/17 TIME: 13:39 Assessment/Plan VTE Prophylaxis VTE Prophylaxis Intervention: SCD's Lines/Catheters IV Catheter Type (from Nrs): PERMACATH Urinary Cath still in place: No Assessment/Plan Assessment/Plan 1. Anemia, 6 units PRBC transfusion after admission, s/p EGD/colonoscopy, unclear etiology, follow up with Dr. Johnson for work ups 2. Acute respiratory failure due to volume overload, improved with HD 3. Acute on chronic renal failure, on HD 4. Acute decompensated diastolic congestive heart failure, HD 5. CAD with history of PCI over 10 years ago 6. DM, on insulins 7. Hypertension 8. Dyslipidemia, on lipitor 9. History of DVT, previously on anticoagulation, xarelto on hold now 10. Intermittent Mobitz type I, asymptomatic 11. Hypomagnesemia, Mg Subjective 24 Hr Interval Summary Free Text/Dictation HD today. No significant shortness of breath, no fever. Exam/Review of Systems Vital Signs Vitals Vital Signs Date Time Temp Pulse Resp B/P Pulse Ox O2 Delivery O2 Flow Rate FiO2 05/10/17 13:33 74 18 95 21 05/10/17 11:41 98.2 111/69 05/08/17 17:21 Nasal Cannula 2.0 Intake and Output 05/09/17 05/09/17 05/10/17 15:00 23:00 07:00 Intake Total 800 ml 800 ml Output Total 600 ml Balance 800 ml 200 ml Exam Constitutional: alert, oriented, well developed Psych: nl mood/affect, no complaints Head: atraumatic, normocephalic Eyes: EOMI, PERRL, nl conjunctiva, nl lids, nl sclera ENMT: mucosa pink and moist, nl external ears & nose, nl lips & teeth, nl nasal mucosa & septum Neck: non-tender, supple Respiratory: clear to auscultation, normal air movement, No congested cough, No crackles/rales, No diminished breath sounds, No intercostal retraction, No labored breathing, No other, No respirations, No tactile fremitus, No wheezing Cardiovascular: nl pulses, regular rate and rhythm, No S3, No S4, No bruits, No diastolic murmur, No edema, No gallop, No irregular rhythm, No jugular venous distention (JVD), No murmurs/extra sounds, No other, No rub, No systolic murmur Gastrointestinal: nl liver, spleen, non-tender, soft, No ascites, No bowel sounds, No distended, No firm, No hepatomegaly, No mass , No other, No rebound or guarding, No splenomegaly, No surgical scars, No tender Musculoskeletal: nl extremities to inspection Extremities: normal pulses, No calf tenderness, No clubbing, No cyanosis, No edema, No other, No palpable cord, No pitting pedal edema, No tenderness 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, nl mental status, nl speech, nl strength Skin: nl turgor Lymph: nl lymph nodes Results Result Diagram: 05/10/17 0629 05/10/17 0629 Results 24 hrs Laboratory Tests Test 05/09/17 15:19 05/09/17 17:31 05/09/17 22:01 05/10/17 06:29 Bedside Glucose 81 114 164 White Blood Count 8.9 Red Blood Count 3.16 #L Hemoglobin 9.8 #L Hematocrit 29.7 #L Mean Corpuscular Volume 94.0 Mean Corpuscular Hemoglobin 31.0 Mean Corpuscular Hemoglobin Concent 33.0 Red Cell Distribution Width Platelet Count 186 Mean Platelet Volume 12.7 H Neutrophils % 71.3 Lymphocytes % 16.7 Monocytes % 7.9 Eosinophils % 3.0 Basophils % 0.4 Nucleated Red Blood Cells % 0.0 Neutrophils # 6.3 Lymphocytes # 1.5 Monocytes # 0.7 Eosinophils # 0.3 Basophils # 0.0 Nucleated Red Blood Cells # 0.0 Sodium Level 138 Potassium Level 4.2 Chloride Level 99 Carbon Dioxide Level 30 Anion Gap 13 Blood Urea Nitrogen 50 H Creatinine 4.00 H Glucose Level 89 # Calcium Level 8.7 Phosphorus Level 3.4 Magnesium Level 1.6 L Test 05/10/17 07:56 05/10/17 09:20 05/10/17 11:05 05/10/17 12:15 Bedside Glucose 116 209 209 Stool Occult Blood NEGATIVE Medications Medications Current Medications Ondansetron HCl (Zofran Tab) 4 mg Q6H PRN PO NAUSEA AND/OR VOMITING; Start at 23:00 Nitroglycerin (Nitroglycerin (Sl Tab) 0.4 Mg) 1 tab Q5M PRN SL CHEST PAIN; Start 04/24/17 at 23:00 Docusate Sodium (Colace) 100 mg Q12H PRN PO CONSTIPATION; Start 04/24/17 at 23 :00 Bisacodyl (Dulcolax) 5 mg DAILY PRN PO CONSTIPATION; Start 04/24/17 at 23:00 Atorvastatin Calcium (Lipitor) 80 mg QHS PO Last administered on 05/09/17 21: 58; Admin Dose 80 MG; Start 04/25/17 at 21:00 Ergocalciferol (Drisdol) 50,000 unit Mo@09 PO Last administered on 05/06/17 09:13; Admin Dose 50,000 UNIT; Start 04/24/17 at 23:00 Ferrous Sulfate (Ferrous Sulfate (Ec)) 325 mg DAILY PO Last administered on 08:45; Admin Dose 325 MG; Start 04/25/17 at 09:00 Multivit/Ca Carb/ B Cmplx/FA/Prenat (Isabel-Brenda) 1 tab DAILY PO Last administered on 05/10/17 08:44; Admin Dose 1 TAB; Start 04/25/17 at 09:00 Pantoprazole (Protonix Tab) 40 mg DAILY@06 PO Last administered on 05/10/17 06:10; Admin Dose 40 MG; Start 04/25/17 at 06:00 Guaifenesin/ Dextromethorphan (Mucinex Dm) 1 tab BID PO Last administered on 08:42; Admin Dose 1 TAB; Start 04/25/17 at 03:15 Diagnostic Test (Pha) (Accu-Chek) 1 ea 02 XX Last administered on 05/04/17 02: 00; Admin Dose 1 EA; Start 04/26/17 at 02:00 Citric Acid/ Sodium Citrate (Bicitra) 30 ml TID PO Last administered on 08:44; Admin Dose 30 ML; Start 04/25/17 at 13:00 Aspirin (Aspirin) 81 mg DAILY PO Last administered on 04/30/17 10:05; Admin Dose 81 MG; Start 04/25/17 at 12:00; Status Future Hold Heparin Sodium (Porcine) (Heparin (5000 Units/0.5 ml)) 5,000 unit BID SC Last administered on 05/08/17 09:02; Admin Dose 5,000 UNIT; Start 04/26/17 at 09:00 ; Status Future Hold Miscellaneous Information 1 ea NOTE XX Last administered on 04/30/17 17:45; Admin Dose 1 EA; Start 04/25/17 at 12:00 Glucose (Glutose) 15 gm Q15M PRN PO DECREASED GLUCOSE; Start 04/25/17 at 12:00 Glucose (Glutose) 22.5 gm Q15M PRN PO DECREASED GLUCOSE; Start 04/25/17 at 12: 00 Dextrose (D50w Syringe) 25 ml Q15M PRN IV DECREASED GLUCOSE Last administered on 05/08/17 16:08; Admin Dose 25 ML; Start 04/25/17 at 12:00 Dextrose (D50w Syringe) 50 ml Q15M PRN IV DECREASED GLUCOSE Last administered on 05/09/17 00:39; Admin Dose 50 ML; Start 04/25/17 at 12:00 Glucagon (Glucagen) 1 mg Q15M PRN IM DECREASED GLUCOSE; Start 04/25/17 at 12: 00 Glucose (Glutose) 15 gm Q15M PRN BUCCAL DECREASED GLUCOSE; Start 04/25/17 at 12:00 Furosemide (Lasix) 20 mg BID IV Last administered on 05/10/17 08:45; Admin Dose 20 MG; Start 04/26/17 at 09:00 Fish Oil (Fish Oil) 2,000 mg BID PO Last administered on 05/10/17 08:45; Admin Dose 2,000 MG; Start 04/27/17 at 21:00 EZETIMIBE (Zetia) 10 mg DAILY PO Last administered on 05/10/17 08:42; Admin Dose 10 MG; Start 04/28/17 at 09:00 Morphine Sulfate (morphine) 2 mg Q4H PRN IV Pain Last administered on 10:24; Admin Dose 2 MG; Start 04/28/17 at 09:00 Linagliptin (Tradjenta) 5 mg DAILY PO Last administered on 05/10/17 08:45; Admin Dose 5 MG; Start 04/28/17 at 12:00 Tiotropium [place] (Spiriva) 1 inh DAILY INH Last administered on 05/10/17 08 :44; Admin Dose 1 INH; Start 04/30/17 at 13:30 Salmeterol Xinafoate/ Fluticasone (Advair 250/50 Diskus) 1 inh BID INH Last administered on 05/10/17 08:43; Admin Dose 1 INH; Start 04/30/17 at 21:00 Amlodipine Besylate (Norvasc) 5 mg BID PO Last administered on 05/10/17 08:43 ; Admin Dose 5 MG; Start 05/03/17 at 21:00 Carvedilol (Coreg) 3.125 mg BID PO Last administered on 05/10/17 08:45; Admin Dose 3.125 MG; Start 05/04/17 at 09:00 Insulin Glargine (Lantus) 22 unit BID SC Last administered on 05/10/17 08:54 ; Admin Dose 22 UNIT; Start 05/09/17 at 21:00 FANTA GARCIA MD May 10, 2017 13:46
--- NOTE | 2017-05-10 14:02 | CONS ---
Date/Time of Note Date/Time of Note DATE: 05/10/17 TIME: 14:01 Assessment/Plan Assessment/Plan Additional Assessment/Plan Volume overload Acute kidney injury with history of CKD, started on hemodialysis Acute decompensated diastolic congestive heart failure Diabetes CAD with history of PCI over 10 years ago Hypertension Dyslipidemia History of DVT, previously on anticoagulation Acute blood loss anemia status post blood transfusion Intermittent Mobitz type I, asymptomatic - Aspirin and anticoagulation have been stopped secondary to recurrent anemia requiring blood transfusion. Patient undergoing workup by hematology. Fluid management via hemodialysis as per our nephrology colleagues. Blood pressure trend overall stable. Continue statin therapy. Consultation Date/Type/Reason Admit Date/Time Apr 24, 2017 at 19:05 Initial Consult Date 04/27/17 Type of Consultation: cv Referring Provider: NANY PRIEST COPY READER 24 HR Interval Summary Free Text/Dictation Denies shortness of breath today. Underwent hemodialysis. Denies dizziness or chest pain or palpitations Exam/Review of Systems Vital Signs Vitals Vital Signs Date Time Temp Pulse Resp B/P Pulse Ox O2 Delivery O2 Flow Rate FiO2 05/10/17 13:33 74 18 95 21 05/10/17 11:41 98.2 111/69 05/08/17 17:21 Nasal Cannula 2.0 Intake and Output 05/09/17 05/09/17 05/10/17 15:00 23:00 07:00 Intake Total 800 ml 800 ml Output Total 600 ml Balance 800 ml 200 ml Exam No apparent distress, eating lunch Constitutional: alert, oriented Head: normocephalic Respiratory: other (Coarse breath sounds bilaterally, no wheezing) Cardiovascular: other (S1-S2 heard), regular rate and rhythm Gastrointestinal: bowel sounds, non-tender, soft Extremities: edema Results Result Diagram: 05/10/17 0629 05/10/17 0629 Results 24 hrs Laboratory Tests Test 05/09/17 15:19 05/09/17 17:31 05/09/17 22:01 05/10/17 06:29 Bedside Glucose 81 114 164 White Blood Count 8.9 Red Blood Count 3.16 #L Hemoglobin 9.8 #L Hematocrit 29.7 #L Mean Corpuscular Volume 94.0 Mean Corpuscular Hemoglobin 31.0 Mean Corpuscular Hemoglobin Concent 33.0 Red Cell Distribution Width Platelet Count 186 Mean Platelet Volume 12.7 H Neutrophils % 71.3 Lymphocytes % 16.7 Monocytes % 7.9 Eosinophils % 3.0 Basophils % 0.4 Nucleated Red Blood Cells % 0.0 Neutrophils # 6.3 Lymphocytes # 1.5 Monocytes # 0.7 Eosinophils # 0.3 Basophils # 0.0 Nucleated Red Blood Cells # 0.0 Sodium Level 138 Potassium Level 4.2 Chloride Level 99 Carbon Dioxide Level 30 Anion Gap 13 Blood Urea Nitrogen 50 H Creatinine 4.00 H Glucose Level 89 # Calcium Level 8.7 Phosphorus Level 3.4 Magnesium Level 1.6 L Test 05/10/17 07:56 05/10/17 09:20 05/10/17 11:05 05/10/17 12:15 Bedside Glucose 116 209 209 Stool Occult Blood NEGATIVE Medications Medications Current Medications Ondansetron HCl (Zofran Tab) 4 mg Q6H PRN PO NAUSEA AND/OR VOMITING; Start at 23:00 Nitroglycerin (Nitroglycerin (Sl Tab) 0.4 Mg) 1 tab Q5M PRN SL CHEST PAIN; Start 04/24/17 at 23:00 Docusate Sodium (Colace) 100 mg Q12H PRN PO CONSTIPATION; Start 04/24/17 at 23 :00 Bisacodyl (Dulcolax) 5 mg DAILY PRN PO CONSTIPATION; Start 04/24/17 at 23:00 Atorvastatin Calcium (Lipitor) 80 mg QHS PO Last administered on 05/09/17 21: 58; Admin Dose 80 MG; Start 04/25/17 at 21:00 Ergocalciferol (Drisdol) 50,000 unit Mo@09 PO Last administered on 05/06/17 09:13; Admin Dose 50,000 UNIT; Start 04/24/17 at 23:00 Ferrous Sulfate (Ferrous Sulfate (Ec)) 325 mg DAILY PO Last administered on 08:45; Admin Dose 325 MG; Start 04/25/17 at 09:00 Multivit/Ca Carb/ B Cmplx/FA/Prenat (Isabel-Brenda) 1 tab DAILY PO Last administered on 05/10/17 08:44; Admin Dose 1 TAB; Start 04/25/17 at 09:00 Pantoprazole (Protonix Tab) 40 mg DAILY@06 PO Last administered on 05/10/17 06:10; Admin Dose 40 MG; Start 04/25/17 at 06:00 Guaifenesin/ Dextromethorphan (Mucinex Dm) 1 tab BID PO Last administered on 08:42; Admin Dose 1 TAB; Start 04/25/17 at 03:15 Diagnostic Test (Pha) (Accu-Chek) 1 ea 02 XX Last administered on 05/04/17 02: 00; Admin Dose 1 EA; Start 04/26/17 at 02:00 Citric Acid/ Sodium Citrate (Bicitra) 30 ml TID PO Last administered on 13:58; Admin Dose 30 ML; Start 04/25/17 at 13:00 Aspirin (Aspirin) 81 mg DAILY PO Last administered on 04/30/17 10:05; Admin Dose 81 MG; Start 04/25/17 at 12:00; Status Future Hold Heparin Sodium (Porcine) (Heparin (5000 Units/0.5 ml)) 5,000 unit BID SC Last administered on 05/08/17 09:02; Admin Dose 5,000 UNIT; Start 04/26/17 at 09:00 ; Status Future Hold Miscellaneous Information 1 ea NOTE XX Last administered on 04/30/17 17:45; Admin Dose 1 EA; Start 04/25/17 at 12:00 Glucose (Glutose) 15 gm Q15M PRN PO DECREASED GLUCOSE; Start 04/25/17 at 12:00 Glucose (Glutose) 22.5 gm Q15M PRN PO DECREASED GLUCOSE; Start 04/25/17 at 12: 00 Dextrose (D50w Syringe) 25 ml Q15M PRN IV DECREASED GLUCOSE Last administered on 05/08/17 16:08; Admin Dose 25 ML; Start 04/25/17 at 12:00 Dextrose (D50w Syringe) 50 ml Q15M PRN IV DECREASED GLUCOSE Last administered on 05/09/17 00:39; Admin Dose 50 ML; Start 04/25/17 at 12:00 Glucagon (Glucagen) 1 mg Q15M PRN IM DECREASED GLUCOSE; Start 04/25/17 at 12: 00 Glucose (Glutose) 15 gm Q15M PRN BUCCAL DECREASED GLUCOSE; Start 04/25/17 at 12:00 Furosemide (Lasix) 20 mg BID IV Last administered on 05/10/17 08:45; Admin Dose 20 MG; Start 04/26/17 at 09:00 Fish Oil (Fish Oil) 2,000 mg BID PO Last administered on 05/10/17 08:45; Admin Dose 2,000 MG; Start 04/27/17 at 21:00 EZETIMIBE (Zetia) 10 mg DAILY PO Last administered on 05/10/17 08:42; Admin Dose 10 MG; Start 04/28/17 at 09:00 Morphine Sulfate (morphine) 2 mg Q4H PRN IV Pain Last administered on 10:24; Admin Dose 2 MG; Start 04/28/17 at 09:00 Linagliptin (Tradjenta) 5 mg DAILY PO Last administered on 05/10/17 08:45; Admin Dose 5 MG; Start 04/28/17 at 12:00 Tiotropium [place] (Spiriva) 1 inh DAILY INH Last administered on 05/10/17 08 :44; Admin Dose 1 INH; Start 04/30/17 at 13:30 Salmeterol Xinafoate/ Fluticasone (Advair 250/50 Diskus) 1 inh BID INH Last administered on 05/10/17 08:43; Admin Dose 1 INH; Start 04/30/17 at 21:00 Amlodipine Besylate (Norvasc) 5 mg BID PO Last administered on 05/10/17 08:43 ; Admin Dose 5 MG; Start 05/03/17 at 21:00 Carvedilol (Coreg) 3.125 mg BID PO Last administered on 05/10/17 08:45; Admin Dose 3.125 MG; Start 05/04/17 at 09:00 Insulin Glargine 22 unit 22 unit BID SC Last administered on 05/10/17 08:54; Admin Dose 22 UNIT; Start 05/09/17 at 21:00 Magnesium Sulfate/ Dextrose (Magnesium Sulfate 1 Gm/D5W) 100 ml @ 100 mls/hr ONCE ONCE IVPB ; Start 05/10/17 at 14:30; Stop 05/10/17 at 15:29 Dell De La Torre DO May 10, 2017 14:02
[2017-05-10] MEDS ORDERED: MAGNESIUM SULFATE 1 GM/D5W 100 ML IVPB ONE (14:30)
--- NOTE | 2017-05-10 14:50 | CONS ---
Date/Time of Note Date/Time of Note DATE: 05/10/17 TIME: 14:48 Assessment/Plan Assessment/Plan Chief Complaint/Hosp Course Pleasant [place]ian gentleman with his family present in the room reporting a 30 year history of diabetes mellitus type 2. He had been on oral agent therapy but as his kidneys declined he was transitioned over to a multiple daily injection regimen using Lantus and NovoLog. He intermittently takes full dose Januvia 100 mg despite his renal dysfunction Problems: (1) Diabetes mellitus type 2 in obese Status: Chronic Comment: Sugar control is a little bit loosened up now we should avoid hypoglycemia with the adjustments that have been made. I will continue to follow him. (2) End stage renal disease on dialysis due to type 2 diabetes mellitus Status: Chronic Comment: As per nephrology. (3) Normocytic anemia Status: Acute Comment: Appreciate input from hematology. Please note the negative stool for occult blood Consultation Date/Type/Reason Admit Date/Time Apr 24, 2017 at 19:05 Initial Consult Date 04/27/17 Type of Consultation: Endocrinology Reason for Consultation Diabetes mellitus type 2 complicated by end-stage renal disease; retinopathy; peripheral neuropathy Referring Provider: NANY PRIEST NP 24 HR Interval Summary Free Text/Dictation No further hypoglycemia after adjustments Exam/Review of Systems Vital Signs Vitals Vital Signs Date Time Temp Pulse Resp B/P Pulse Ox O2 Delivery O2 Flow Rate FiO2 05/10/17 13:33 74 18 95 21 05/10/17 11:41 98.2 111/69 05/08/17 17:21 Nasal Cannula 2.0 Intake and Output 05/09/17 05/09/17 05/10/17 15:00 23:00 07:00 Intake Total 800 ml 800 ml Output Total 600 ml Balance 800 ml 200 ml Exam Constitutional: alert, oriented Cardiovascular: nl pulses, regular rate and rhythm Results Result Diagram: 05/10/17 0629 05/10/17 0629 Results 24 hrs Laboratory Tests Test 05/09/17 15:19 05/09/17 17:31 05/09/17 22:01 05/10/17 06:29 Bedside Glucose 81 114 164 White Blood Count 8.9 Red Blood Count 3.16 #L Hemoglobin 9.8 #L Hematocrit 29.7 #L Mean Corpuscular Volume 94.0 Mean Corpuscular Hemoglobin 31.0 Mean Corpuscular Hemoglobin Concent 33.0 Red Cell Distribution Width Platelet Count 186 Mean Platelet Volume 12.7 H Neutrophils % 71.3 Lymphocytes % 16.7 Monocytes % 7.9 Eosinophils % 3.0 Basophils % 0.4 Nucleated Red Blood Cells % 0.0 Neutrophils # 6.3 Lymphocytes # 1.5 Monocytes # 0.7 Eosinophils # 0.3 Basophils # 0.0 Nucleated Red Blood Cells # 0.0 Sodium Level 138 Potassium Level 4.2 Chloride Level 99 Carbon Dioxide Level 30 Anion Gap 13 Blood Urea Nitrogen 50 H Creatinine 4.00 H Glucose Level 89 # Calcium Level 8.7 Phosphorus Level 3.4 Magnesium Level 1.6 L Test 05/10/17 07:56 05/10/17 09:20 05/10/17 11:05 05/10/17 12:15 Bedside Glucose 116 209 209 Stool Occult Blood NEGATIVE Medications Medications Current Medications Ondansetron HCl (Zofran Tab) 4 mg Q6H PRN PO NAUSEA AND/OR VOMITING; Start at 23:00 Nitroglycerin (Nitroglycerin (Sl Tab) 0.4 Mg) 1 tab Q5M PRN SL CHEST PAIN; Start 04/24/17 at 23:00 Docusate Sodium (Colace) 100 mg Q12H PRN PO CONSTIPATION; Start 04/24/17 at 23 :00 Bisacodyl (Dulcolax) 5 mg DAILY PRN PO CONSTIPATION; Start 04/24/17 at 23:00 Atorvastatin Calcium (Lipitor) 80 mg QHS PO Last administered on 05/09/17 21: 58; Admin Dose 80 MG; Start 04/25/17 at 21:00 Ergocalciferol (Drisdol) 50,000 unit Mo@09 PO Last administered on 05/06/17 09:13; Admin Dose 50,000 UNIT; Start 04/24/17 at 23:00 Ferrous Sulfate (Ferrous Sulfate (Ec)) 325 mg DAILY PO Last administered on 08:45; Admin Dose 325 MG; Start 04/25/17 at 09:00 Multivit/Ca Carb/ B Cmplx/FA/Prenat (Isabel-Brenda) 1 tab DAILY PO Last administered on 05/10/17 08:44; Admin Dose 1 TAB; Start 04/25/17 at 09:00 Pantoprazole (Protonix Tab) 40 mg DAILY@06 PO Last administered on 05/10/17 06:10; Admin Dose 40 MG; Start 04/25/17 at 06:00 Guaifenesin/ Dextromethorphan (Mucinex Dm) 1 tab BID PO Last administered on 08:42; Admin Dose 1 TAB; Start 04/25/17 at 03:15 Diagnostic Test (Pha) (Accu-Chek) 1 ea 02 XX Last administered on 05/04/17 02: 00; Admin Dose 1 EA; Start 04/26/17 at 02:00 Citric Acid/ Sodium Citrate (Bicitra) 30 ml TID PO Last administered on 13:58; Admin Dose 30 ML; Start 04/25/17 at 13:00 Aspirin (Aspirin) 81 mg DAILY PO Last administered on 04/30/17 10:05; Admin Dose 81 MG; Start 04/25/17 at 12:00; Status Future Hold Heparin Sodium (Porcine) (Heparin (5000 Units/0.5 ml)) 5,000 unit BID SC Last administered on 05/08/17 09:02; Admin Dose 5,000 UNIT; Start 04/26/17 at 09:00 ; Status Future Hold Miscellaneous Information 1 ea NOTE XX Last administered on 04/30/17 17:45; Admin Dose 1 EA; Start 04/25/17 at 12:00 Glucose (Glutose) 15 gm Q15M PRN PO DECREASED GLUCOSE; Start 04/25/17 at 12:00 Glucose (Glutose) 22.5 gm Q15M PRN PO DECREASED GLUCOSE; Start 04/25/17 at 12: 00 Dextrose (D50w Syringe) 25 ml Q15M PRN IV DECREASED GLUCOSE Last administered on 05/08/17 16:08; Admin Dose 25 ML; Start 04/25/17 at 12:00 Dextrose (D50w Syringe) 50 ml Q15M PRN IV DECREASED GLUCOSE Last administered on 05/09/17 00:39; Admin Dose 50 ML; Start 04/25/17 at 12:00 Glucagon (Glucagen) 1 mg Q15M PRN IM DECREASED GLUCOSE; Start 04/25/17 at 12: 00 Glucose (Glutose) 15 gm Q15M PRN BUCCAL DECREASED GLUCOSE; Start 04/25/17 at 12:00 Furosemide (Lasix) 20 mg BID IV Last administered on 05/10/17 08:45; Admin Dose 20 MG; Start 04/26/17 at 09:00 Fish Oil (Fish Oil) 2,000 mg BID PO Last administered on 05/10/17 08:45; Admin Dose 2,000 MG; Start 04/27/17 at 21:00 EZETIMIBE (Zetia) 10 mg DAILY PO Last administered on 05/10/17 08:42; Admin Dose 10 MG; Start 04/28/17 at 09:00 Morphine Sulfate (morphine) 2 mg Q4H PRN IV Pain Last administered on 10:24; Admin Dose 2 MG; Start 04/28/17 at 09:00 Linagliptin (Tradjenta) 5 mg DAILY PO Last administered on 05/10/17 08:45; Admin Dose 5 MG; Start 04/28/17 at 12:00 Tiotropium [place] (Spiriva) 1 inh DAILY INH Last administered on 05/10/17 08 :44; Admin Dose 1 INH; Start 04/30/17 at 13:30 Salmeterol Xinafoate/ Fluticasone (Advair 250/50 Diskus) 1 inh BID INH Last administered on 05/10/17 08:43; Admin Dose 1 INH; Start 04/30/17 at 21:00 Amlodipine Besylate (Norvasc) 5 mg BID PO Last administered on 05/10/17 08:43 ; Admin Dose 5 MG; Start 05/03/17 at 21:00 Carvedilol (Coreg) 3.125 mg BID PO Last administered on 05/10/17 08:45; Admin Dose 3.125 MG; Start 05/04/17 at 09:00 Insulin Glargine 22 unit 22 unit BID SC Last administered on 05/10/17 08:54; Admin Dose 22 UNIT; Start 05/09/17 at 21:00 Magnesium Sulfate/ Dextrose (Magnesium Sulfate 1 Gm/D5W) 100 ml @ 100 mls/hr ONCE ONCE IVPB ; Start 05/10/17 at 14:30; Stop 05/10/17 at 15:29 MARA GRAYSON MD May 10, 2017 14:50
--- NOTE | 2017-05-10 15:18 | PN ---
Date/Time of Note Date/Time of Note DATE: 05/10/17 TIME: 14:56 Assessment/Plan VTE Prophylaxis VTE Prophylaxis Intervention: SCD's Lines/Catheters IV [facility]from [facility] PERMACATH Urinary Cath still in place: No Assessment/Plan Chief Complaint/Hosp Course Assessment: Anemia GI bleed etiology ruled out, possibly hemolytic anemia EGD 05/03/17 Impression: Moderate distal esophagitis. Post distal gastrectomy Billroth II anastomosis. Moderate bile reflux gastritis. Rule out H. pylori infection. Normal afferent and efferent jejunal mucosa Colonoscopy 05/03/17 Impression: Suboptimal examination due to poor preparation No gross lesions present. Moderate-sized internal hemorrhoids. Diabetes type 2 Acute kidney injury with history of CKD, on hemodialysis Congestive heart failure CAD with history of PCI over 10 years ago Hypertension Dyslipidemia History of DVT, previously on anticoagulation Intermittent Mobitz type I, asymptomatic Plan: Hematology orders are in Stool sample for fecal occult blood test pending Small bowel x-ray - negative Monitor H&H and transfuse for hemoglobin less than 7.5 If no evidence of further bleeding repeat colonoscopy within 6 months to a year is recommended Continue PPI therapy Patient seen in collaboration with Subjective: Patient is feeling less fatigued than yesterday. He got blood transfusion last night and now his hemoglobin is 9.1. Patient was dialyzed this morning. Eating regular diet with fluid restriction, appetite is poor. Denies melena or hematochezia. Stool sample for fecal occult blood is pending. Hematology recommended reticulocyte count and direct and indirect bilirubin with the next blood draw. Continue monitoring H&H transfuse for hemoglobin less than 7.5. Patient has been examined and interviewed. All laboratory values and imaging studies have been reviewed. Course of action discussed with the nursing staff and the family. PHYSICAL EXAMINATION: GENERAL: Well developed, obese, well nourished, alert & oriented x 3, in no acute distress SKIN: No lesions, pale, no stigmata chronic liver disease, no evidence of bleeding diathesis LYMPHATIC: No palpable lymphadenopathy. HEAD: Normocephalic, atraumatic, no tenderness. EYES: Pupils equal reactive to light and accommodation, full extraocular movements, sclera clear, non-icteric, no discharge. EARS/NOSE AND THROAT: Ears normal, nose normal, oropharynx normal, oral membranes well hydrated without lesions. NECK: Supple, no masses, thyroid normal, JVP within normal limits, carotids normal without bruits. CHEST: Inspection within normal limits. Lung sounds are clear on auscultation CARDIOVASCULAR: Heart: Regular rate and rhythm, no murmurs, gallops or rubs. Peripheral pulses present within normal limits, no cyanosis, clubbing or edemas. No pulsatile abdominal mass RESPIRATORY: Lungs clear to auscultation and percussion, no wheezing, no rubs GASTROINTESTINAL AND LIVER: Abdomen: Soft, obese, non tender, non-distended, no hernias, no masses, no organomegaly, no ascites, no guarding, no rebound tenderness, normoactive bowel sounds. Rectal: Deferred. GENITOURINARY: Male genitalia within normal limits. EXTREMITIES: No cyanosis, clubbing or edema. Problems: Exam/Review of Systems Vital Signs Vitals Vital Signs Date Time Temp Pulse Resp B/P Pulse Ox O2 Delivery O2 Flow Rate FiO2 05/10/17 13:33 74 18 95 21 05/10/17 11:41 98.2 111/69 05/08/17 17:21 Nasal Cannula 2.0 Intake and Output 05/09/17 05/09/17 05/10/17 15:00 23:00 07:00 Intake Total 800 ml 800 ml Output Total 600 ml Balance 800 ml 200 ml Results Result Diagram: 05/10/17 0629 05/10/17 0629 Results 24 hrs Laboratory Tests Test 05/09/17 15:19 05/09/17 17:31 05/09/17 22:01 05/10/17 06:29 Bedside Glucose 81 114 164 White Blood Count 8.9 Red Blood Count 3.16 #L Hemoglobin 9.8 #L Hematocrit 29.7 #L Mean Corpuscular Volume 94.0 Mean Corpuscular Hemoglobin 31.0 Mean Corpuscular Hemoglobin Concent 33.0 Red Cell Distribution Width Platelet Count 186 Mean Platelet Volume 12.7 H Neutrophils % 71.3 Lymphocytes % 16.7 Monocytes % 7.9 Eosinophils % 3.0 Basophils % 0.4 Nucleated Red Blood Cells % 0.0 Neutrophils # 6.3 Lymphocytes # 1.5 Monocytes # 0.7 Eosinophils # 0.3 Basophils # 0.0 Nucleated Red Blood Cells # 0.0 Sodium Level 138 Potassium Level 4.2 Chloride Level 99 Carbon Dioxide Level 30 Anion Gap 13 Blood Urea Nitrogen 50 H Creatinine 4.00 H Glucose Level 89 # Calcium Level 8.7 Phosphorus Level 3.4 Magnesium Level 1.6 L Test 05/10/17 07:56 05/10/17 09:20 05/10/17 11:05 05/10/17 12:15 Bedside Glucose 116 209 209 Stool Occult Blood NEGATIVE Medications Medications Current Medications Ondansetron HCl (Zofran Tab) 4 mg Q6H PRN PO NAUSEA AND/OR VOMITING; Start at 23:00 Nitroglycerin (Nitroglycerin (Sl Tab) 0.4 Mg) 1 tab Q5M PRN SL CHEST PAIN; Start 04/24/17 at 23:00 Docusate Sodium (Colace) 100 mg Q12H PRN PO CONSTIPATION; Start 04/24/17 at 23 :00 Bisacodyl (Dulcolax) 5 mg DAILY PRN PO CONSTIPATION; Start 04/24/17 at 23:00 Atorvastatin Calcium (Lipitor) 80 mg QHS PO Last administered on 05/09/17 21: 58; Admin Dose 80 MG; Start 04/25/17 at 21:00 Ergocalciferol (Drisdol) 50,000 unit Mo@09 PO Last administered on 05/06/17 09:13; Admin Dose 50,000 UNIT; Start 04/24/17 at 23:00 Ferrous Sulfate (Ferrous Sulfate (Ec)) 325 mg DAILY PO Last administered on 08:45; Admin Dose 325 MG; Start 04/25/17 at 09:00 Multivit/Ca Carb/ B Cmplx/FA/Prenat (Isabel-Brenda) 1 tab DAILY PO Last administered on 05/10/17 08:44; Admin Dose 1 TAB; Start 04/25/17 at 09:00 Pantoprazole (Protonix Tab) 40 mg DAILY@06 PO Last administered on 05/10/17 06:10; Admin Dose 40 MG; Start 04/25/17 at 06:00 Guaifenesin/ Dextromethorphan (Mucinex Dm) 1 tab BID PO Last administered on 08:42; Admin Dose 1 TAB; Start 04/25/17 at 03:15 Diagnostic Test (Pha) (Accu-Chek) 1 ea 02 XX Last administered on 05/04/17 02: 00; Admin Dose 1 EA; Start 04/26/17 at 02:00 Citric Acid/ Sodium Citrate (Bicitra) 30 ml TID PO Last administered on 13:58; Admin Dose 30 ML; Start 04/25/17 at 13:00 Aspirin (Aspirin) 81 mg DAILY PO Last administered on 04/30/17 10:05; Admin Dose 81 MG; Start 04/25/17 at 12:00; Status Future Hold Heparin Sodium (Porcine) (Heparin (5000 Units/0.5 ml)) 5,000 unit BID SC Last administered on 05/08/17 09:02; Admin Dose 5,000 UNIT; Start 04/26/17 at 09:00 ; Status Future Hold Miscellaneous Information 1 ea NOTE XX Last administered on 04/30/17 17:45; Admin Dose 1 EA; Start 04/25/17 at 12:00 Glucose (Glutose) 15 gm Q15M PRN PO DECREASED GLUCOSE; Start 04/25/17 at 12:00 Glucose (Glutose) 22.5 gm Q15M PRN PO DECREASED GLUCOSE; Start 04/25/17 at 12: 00 Dextrose (D50w Syringe) 25 ml Q15M PRN IV DECREASED GLUCOSE Last administered on 05/08/17 16:08; Admin Dose 25 ML; Start 04/25/17 at 12:00 Dextrose (D50w Syringe) 50 ml Q15M PRN IV DECREASED GLUCOSE Last administered on 05/09/17 00:39; Admin Dose 50 ML; Start 04/25/17 at 12:00 Glucagon (Glucagen) 1 mg Q15M PRN IM DECREASED GLUCOSE; Start 04/25/17 at 12: 00 Glucose (Glutose) 15 gm Q15M PRN BUCCAL DECREASED GLUCOSE; Start 04/25/17 at 12:00 Furosemide (Lasix) 20 mg BID IV Last administered on 05/10/17 08:45; Admin Dose 20 MG; Start 04/26/17 at 09:00 Fish Oil (Fish Oil) 2,000 mg BID PO Last administered on 05/10/17 08:45; Admin Dose 2,000 MG; Start 04/27/17 at 21:00 EZETIMIBE (Zetia) 10 mg DAILY PO Last administered on 05/10/17 08:42; Admin Dose 10 MG; Start 04/28/17 at 09:00 Morphine Sulfate (morphine) 2 mg Q4H PRN IV Pain Last administered on 10:24; Admin Dose 2 MG; Start 04/28/17 at 09:00 Linagliptin (Tradjenta) 5 mg DAILY PO Last administered on 05/10/17 08:45; Admin Dose 5 MG; Start 04/28/17 at 12:00 Tiotropium [place] (Spiriva) 1 inh DAILY INH Last administered on 05/10/17 08 :44; Admin Dose 1 INH; Start 04/30/17 at 13:30 Salmeterol Xinafoate/ Fluticasone (Advair 250/50 Diskus) 1 inh BID INH Last administered on 05/10/17 08:43; Admin Dose 1 INH; Start 04/30/17 at 21:00 Amlodipine Besylate (Norvasc) 5 mg BID PO Last administered on 05/10/17 08:43 ; Admin Dose 5 MG; Start 05/03/17 at 21:00 Carvedilol (Coreg) 3.125 mg BID PO Last administered on 05/10/17 08:45; Admin Dose 3.125 MG; Start 05/04/17 at 09:00 Insulin Glargine 22 unit 22 unit BID SC Last administered on 05/10/17 08:54; Admin Dose 22 UNIT; Start 05/09/17 at 21:00 Magnesium Sulfate/ Dextrose (Magnesium Sulfate 1 Gm/D5W) 100 ml @ 100 mls/hr ONCE ONCE IVPB ; Start 05/10/17 at 14:30; Stop 05/10/17 at 15:29 Copies To: CC: GERMÁN WAY MD, ANASTASIA NP May 10, 2017 15:06
--- NOTE | 2017-05-10 15:23 | CONS ---
Date/Time of Note Date/Time of Note DATE: 05/10/17 TIME: 15:22 Consult Date/Type/Reason Admit Date/Time Apr 24, 2017 at 19:05 Initial Consult Date 05/01/17 Type of Consultation: Pulmonary Ordering Provider: NANY PRIEST [employer]LECT[employer] Subjective No significant changes. Patient remains stable. Status post packed cell transfusion. Objective Vital Signs Date Time Temp Pulse Resp B/P Pulse Ox O2 Delivery O2 Flow Rate FiO2 05/10/17 13:33 74 18 95 21 05/10/17 11:41 98.2 111/69 05/08/17 17:21 Nasal Cannula 2.0 Intake and Output 05/09/17 05/09/17 05/10/17 15:00 23:00 07:00 Intake Total 800 ml 800 ml Output Total 600 ml Balance 800 ml 200 ml Exam PHYSICAL EXAMINATION GENERAL: Elderly gentleman, comfortable at rest no acute distress VITAL SIGNS: see below. HEENT: Pupils equal, round, and reactive to light. CARDIAC: S1, S2, 1/6 systolic ejection murmur CHEST: Diminished air entry bilaterally. ABDOMEN: Mildly distended. Bowel sounds present no guarding or rebound EXTREMITIES: No cyanosis, clubbing edema +1 NEUROLOGIC: Generalized weakness Results/Medications Result Diagram: 05/10/17 0629 05/10/17 0629 Results 24 hrs Laboratory Tests Test 05/09/17 17:31 05/09/17 22:01 05/10/17 06:29 05/10/17 07:56 Bedside Glucose 114 164 116 White Blood Count 8.9 Red Blood Count 3.16 #L Hemoglobin 9.8 #L Hematocrit 29.7 #L Mean Corpuscular Volume 94.0 Mean Corpuscular Hemoglobin 31.0 Mean Corpuscular Hemoglobin Concent 33.0 Red Cell Distribution Width Platelet Count 186 Mean Platelet Volume 12.7 H Neutrophils % 71.3 Lymphocytes % 16.7 Monocytes % 7.9 Eosinophils % 3.0 Basophils % 0.4 Nucleated Red Blood Cells % 0.0 Neutrophils # 6.3 Lymphocytes # 1.5 Monocytes # 0.7 Eosinophils # 0.3 Basophils # 0.0 Nucleated Red Blood Cells # 0.0 Sodium Level 138 Potassium Level 4.2 Chloride Level 99 Carbon Dioxide Level 30 Anion Gap 13 Blood Urea Nitrogen 50 H Creatinine 4.00 H Glucose Level 89 # Calcium Level 8.7 Phosphorus Level 3.4 Magnesium Level 1.6 L Test 05/10/17 09:20 05/10/17 11:05 05/10/17 12:15 Stool Occult Blood NEGATIVE Bedside Glucose 209 209 Medications Current Medications Ondansetron HCl (Zofran Tab) 4 mg Q6H PRN PO NAUSEA AND/OR VOMITING; Start at 23:00 Nitroglycerin (Nitroglycerin (Sl Tab) 0.4 Mg) 1 tab Q5M PRN SL CHEST PAIN; Start 04/24/17 at 23:00 Docusate Sodium (Colace) 100 mg Q12H PRN PO CONSTIPATION; Start 04/24/17 at 23 :00 Bisacodyl (Dulcolax) 5 mg DAILY PRN PO CONSTIPATION; Start 04/24/17 at 23:00 Atorvastatin Calcium (Lipitor) 80 mg QHS PO Last administered on 05/09/17 21: 58; Admin Dose 80 MG; Start 04/25/17 at 21:00 Ergocalciferol (Drisdol) 50,000 unit Mo@09 PO Last administered on 05/06/17 09:13; Admin Dose 50,000 UNIT; Start 04/24/17 at 23:00 Ferrous Sulfate (Ferrous Sulfate (Ec)) 325 mg DAILY PO Last administered on 08:45; Admin Dose 325 MG; Start 04/25/17 at 09:00 Multivit/Ca Carb/ B Cmplx/FA/Prenat (Isabel-Brenda) 1 tab DAILY PO Last administered on 05/10/17 08:44; Admin Dose 1 TAB; Start 04/25/17 at 09:00 Pantoprazole (Protonix Tab) 40 mg DAILY@06 PO Last administered on 05/10/17 06:10; Admin Dose 40 MG; Start 04/25/17 at 06:00 Guaifenesin/ Dextromethorphan (Mucinex Dm) 1 tab BID PO Last administered on 08:42; Admin Dose 1 TAB; Start 04/25/17 at 03:15 Diagnostic Test (Pha) (Accu-Chek) 1 ea 02 XX Last administered on 05/04/17 02: 00; Admin Dose 1 EA; Start 04/26/17 at 02:00 Citric Acid/ Sodium Citrate (Bicitra) 30 ml TID PO Last administered on 13:58; Admin Dose 30 ML; Start 04/25/17 at 13:00 Aspirin (Aspirin) 81 mg DAILY PO Last administered on 04/30/17 10:05; Admin Dose 81 MG; Start 04/25/17 at 12:00; Status Future Hold Heparin Sodium (Porcine) (Heparin (5000 Units/0.5 ml)) 5,000 unit BID SC Last administered on 05/08/17 09:02; Admin Dose 5,000 UNIT; Start 04/26/17 at 09:00 ; Status Future Hold Miscellaneous Information 1 ea NOTE XX Last administered on 04/30/17 17:45; Admin Dose 1 EA; Start 04/25/17 at 12:00 Glucose (Glutose) 15 gm Q15M PRN PO DECREASED GLUCOSE; Start 04/25/17 at 12:00 Glucose (Glutose) 22.5 gm Q15M PRN PO DECREASED GLUCOSE; Start 04/25/17 at 12: 00 Dextrose (D50w Syringe) 25 ml Q15M PRN IV DECREASED GLUCOSE Last administered on 05/08/17 16:08; Admin Dose 25 ML; Start 04/25/17 at 12:00 Dextrose (D50w Syringe) 50 ml Q15M PRN IV DECREASED GLUCOSE Last administered on 05/09/17 00:39; Admin Dose 50 ML; Start 04/25/17 at 12:00 Glucagon (Glucagen) 1 mg Q15M PRN IM DECREASED GLUCOSE; Start 04/25/17 at 12: 00 Glucose (Glutose) 15 gm Q15M PRN BUCCAL DECREASED GLUCOSE; Start 04/25/17 at 12:00 Furosemide (Lasix) 20 mg BID IV Last administered on 05/10/17 08:45; Admin Dose 20 MG; Start 04/26/17 at 09:00 Fish Oil (Fish Oil) 2,000 mg BID PO Last administered on 05/10/17 08:45; Admin Dose 2,000 MG; Start 04/27/17 at 21:00 EZETIMIBE (Zetia) 10 mg DAILY PO Last administered on 05/10/17 08:42; Admin Dose 10 MG; Start 04/28/17 at 09:00 Morphine Sulfate (morphine) 2 mg Q4H PRN IV Pain Last administered on 10:24; Admin Dose 2 MG; Start 04/28/17 at 09:00 Linagliptin (Tradjenta) 5 mg DAILY PO Last administered on 05/10/17 08:45; Admin Dose 5 MG; Start 04/28/17 at 12:00 Tiotropium [place] (Spiriva) 1 inh DAILY INH Last administered on 05/10/17 08 :44; Admin Dose 1 INH; Start 04/30/17 at 13:30 Salmeterol Xinafoate/ Fluticasone (Advair 250/50 Diskus) 1 inh BID INH Last administered on 05/10/17 08:43; Admin Dose 1 INH; Start 04/30/17 at 21:00 Amlodipine Besylate (Norvasc) 5 mg BID PO Last administered on 05/10/17 08:43 ; Admin Dose 5 MG; Start 05/03/17 at 21:00 Carvedilol (Coreg) 3.125 mg BID PO Last administered on 05/10/17 08:45; Admin Dose 3.125 MG; Start 05/04/17 at 09:00 Insulin Glargine 22 unit 22 unit BID SC Last administered on 05/10/17 08:54; Admin Dose 22 UNIT; Start 05/09/17 at 21:00 Magnesium Sulfate/ Dextrose (Magnesium Sulfate 1 Gm/D5W) 100 ml @ 100 mls/hr ONCE ONCE IVPB Last administered on 05/10/17 15:06; Admin Dose 100 MLS/HR; Start 05/10/17 at 14:30; Stop 05/10/17 at 15:29 Assessment/Plan Chief Complaint/Hosp Course IMP: 1. Pulmonary edema with COPD exacerbation with interval improvement. 2. End-stage renal disease, on hemodialysis. 3. Anemia. Questionable GI bleed with drop in hemoglobin noted. 4. Diabetes. With hyperglycemia secondary to systemic steroids. 5. History of DVT. 6. History of hypertension. RECS: 1. HD/UF 2. Follow K+ 3. Stable H&H posttransfusion 4. DM control as per Endo dc planning once Hb stable and HD arranged. Problems: BROOKE MARIE MD, FCCP May 10, 2017 15:23
[2017-05-10] MEDS: ATORVASTATIN 80 MG TAB PO SCH (21:45)
--- NOTE | 2017-05-10 22:25 | CONS ---
Date/Time of Note Date/Time of Note DATE: 05/10/17 TIME: 22:22 Assessment/Plan Assessment/Plan Additional Assessment/Plan 1. 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 H/o CKD due to diabetic nehropathy as per pt was stage IV/V with eGFR 15 as outpatient 3. Acute hyperkalemia due to TROY on CKD - resolved after pt gets started on HD 4. Metabolic acidosis due to worsenign renal failure 5. H/ CAD S/p previous coronary angiogram as per patient 6. Hypertension 7. Type II DM 8. Hyperlipidemia 9. Acute NSETMI due to CHF 10. severe anemia despite getting PRBC, concerned abotu GI bleeding, Plan : hepatitis C antibody positive, Hepatitis A antibody positive EGD showed distal esophagitis, s/p Hd today 3 L removed, will keep pt on MWF schedule [facility] [place] [facility] for anemia will follow up Consultation Date/Type/Reason Admit Date/Time Apr 24, 2017 at 19:05 Initial Consult Date 04/25/17 Type of Consultation: NEPHROLOGY Referring Provider: NANY PRIEST NP 24 HR Interval Summary Free Text/Dictation s/p HD today 3 L removed, BP stable Exam/Review of Systems Vital Signs Vitals Vital Signs Date Time Temp Pulse Resp B/P Pulse Ox O2 Delivery O2 Flow Rate FiO2 05/10/17 20:17 67 05/10/17 20:16 18 94 21 05/10/17 20:00 97.1 140/66 05/08/17 17:21 Nasal Cannula 2.0 Intake and Output 05/09/17 05/09/17 05/10/17 15:00 23:00 07:00 Intake Total 800 ml 800 ml Output Total 600 ml Balance 800 ml 200 ml Exam Constitutional: alert Respiratory: clear to auscultation, diminished breath sounds, normal air movement, + right chest permacath Cardiovascular: nl pulses, regular rate and rhythm Gastrointestinal: non-tender, soft Musculoskeletal: muscle weakness, nl extremities to inspection, swelling Extremities: calf tenderness, normal pulses 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: BODY ENGINEER II-XII intact, nl mental status, nl speech, nl strength Results Result Diagram: 05/10/17 0629 05/10/17 0629 Results 24 hrs Laboratory Tests Test 05/10/17 06:29 05/10/17 07:56 05/10/17 09:20 05/10/17 11:05 White Blood Count 8.9 Red Blood Count 3.16 #L Hemoglobin 9.8 #L Hematocrit 29.7 #L Mean Corpuscular Volume 94.0 Mean Corpuscular Hemoglobin 31.0 Mean Corpuscular Hemoglobin Concent 33.0 Red Cell Distribution Width Platelet Count 186 Mean Platelet Volume 12.7 H Neutrophils % 71.3 Lymphocytes % 16.7 Monocytes % 7.9 Eosinophils % 3.0 Basophils % 0.4 Nucleated Red Blood Cells % 0.0 Neutrophils # 6.3 Lymphocytes # 1.5 Monocytes # 0.7 Eosinophils # 0.3 Basophils # 0.0 Nucleated Red Blood Cells # 0.0 Sodium Level 138 Potassium Level 4.2 Chloride Level 99 Carbon Dioxide Level 30 Anion Gap 13 Blood Urea Nitrogen 50 H Creatinine 4.00 H Glucose Level 89 # Calcium Level 8.7 Phosphorus Level 3.4 Magnesium Level 1.6 L Bedside Glucose 116 209 Stool Occult Blood NEGATIVE Test 05/10/17 12:15 05/10/17 17:35 05/10/17 21:50 Bedside Glucose 209 198 109 Medications Medications Current Medications Ondansetron HCl (Zofran Tab) 4 mg Q6H PRN PO NAUSEA AND/OR VOMITING; Start at 23:00 Nitroglycerin (Nitroglycerin (Sl Tab) 0.4 Mg) 1 tab Q5M PRN SL CHEST PAIN; Start 04/24/17 at 23:00 Docusate Sodium (Colace) 100 mg Q12H PRN PO CONSTIPATION; Start 04/24/17 at 23 :00 Bisacodyl (Dulcolax) 5 mg DAILY PRN PO CONSTIPATION; Start 04/24/17 at 23:00 Atorvastatin Calcium (Lipitor) 80 mg QHS PO Last administered on 05/10/17 21: 45; Admin Dose 80 MG; Start 04/25/17 at 21:00 Ergocalciferol (Drisdol) 50,000 unit Mo@09 PO Last administered on 05/06/17 09:13; Admin Dose 50,000 UNIT; Start 04/24/17 at 23:00 Ferrous Sulfate (Ferrous Sulfate (Ec)) 325 mg DAILY PO Last administered on 08:45; Admin Dose 325 MG; Start 04/25/17 at 09:00 Multivit/Ca Carb/ B Cmplx/FA/Prenat (Isabel-Brenda) 1 tab DAILY PO Last administered on 05/10/17 08:44; Admin Dose 1 TAB; Start 04/25/17 at 09:00 Pantoprazole (Protonix Tab) 40 mg DAILY@06 PO Last administered on 05/10/17 06:10; Admin Dose 40 MG; Start 04/25/17 at 06:00 Guaifenesin/ Dextromethorphan (Mucinex Dm) 1 tab BID PO Last administered on 21:45; Admin Dose 1 TAB; Start 04/25/17 at 03:15 Diagnostic Test (Pha) (Accu-Chek) 1 ea 02 XX Last administered on 05/04/17 02: 00; Admin Dose 1 EA; Start 04/26/17 at 02:00 Citric Acid/ Sodium Citrate (Bicitra) 30 ml TID PO Last administered on 21:45; Admin Dose 30 ML; Start 04/25/17 at 13:00 Aspirin (Aspirin) 81 mg DAILY PO Last administered on 04/30/17 10:05; Admin Dose 81 MG; Start 04/25/17 at 12:00; Status Future Hold Heparin Sodium (Porcine) (Heparin (5000 Units/0.5 ml)) 5,000 unit BID SC Last administered on 05/08/17 09:02; Admin Dose 5,000 UNIT; Start 04/26/17 at 09:00 ; Status Future Hold Miscellaneous Information 1 ea NOTE XX Last administered on 04/30/17 17:45; Admin Dose 1 EA; Start 04/25/17 at 12:00 Glucose (Glutose) 15 gm Q15M PRN PO DECREASED GLUCOSE; Start 04/25/17 at 12:00 Glucose (Glutose) 22.5 gm Q15M PRN PO DECREASED GLUCOSE; Start 04/25/17 at 12: 00 Dextrose (D50w Syringe) 25 ml Q15M PRN IV DECREASED GLUCOSE Last administered on 05/08/17 16:08; Admin Dose 25 ML; Start 04/25/17 at 12:00 Dextrose (D50w Syringe) 50 ml Q15M PRN IV DECREASED GLUCOSE Last administered on 05/09/17 00:39; Admin Dose 50 ML; Start 04/25/17 at 12:00 Glucagon (Glucagen) 1 mg Q15M PRN IM DECREASED GLUCOSE; Start 04/25/17 at 12: 00 Glucose (Glutose) 15 gm Q15M PRN BUCCAL DECREASED GLUCOSE; Start 04/25/17 at 12:00 Furosemide (Lasix) 20 mg BID IV Last administered on 05/10/17 21:45; Admin Dose 20 MG; Start 04/26/17 at 09:00 Fish Oil (Fish Oil) 2,000 mg BID PO Last administered on 05/10/17 21:45; Admin Dose 2,000 MG; Start 04/27/17 at 21:00 EZETIMIBE (Zetia) 10 mg DAILY PO Last administered on 05/10/17 08:42; Admin Dose 10 MG; Start 04/28/17 at 09:00 Morphine Sulfate (morphine) 2 mg Q4H PRN IV Pain Last administered on 10:24; Admin Dose 2 MG; Start 04/28/17 at 09:00 Linagliptin (Tradjenta) 5 mg DAILY PO Last administered on 05/10/17 08:45; Admin Dose 5 MG; Start 04/28/17 at 12:00 Tiotropium [place] (Spiriva) 1 inh DAILY INH Last administered on 05/10/17 08 :44; Admin Dose 1 INH; Start 04/30/17 at 13:30 Salmeterol Xinafoate/ Fluticasone (Advair 250/50 Diskus) 1 inh BID INH Last administered on 05/10/17 21:44; Admin Dose 1 INH; Start 04/30/17 at 21:00 Amlodipine Besylate (Norvasc) 5 mg BID PO Last administered on 05/10/17 21:46 ; Admin Dose 5 MG; Start 05/03/17 at 21:00 Carvedilol (Coreg) 3.125 mg BID PO Last administered on 05/10/17 21:46; Admin Dose 3.125 MG; Start 05/04/17 at 09:00 Insulin Glargine (Lantus) 22 unit BID SC Last administered on 12/15/17at 08:54 ; Admin Dose 22 UNIT; Start 05/09/17 at 21:00 RAQUEL MCDOWELL MD May 10, 2017 22:25
[2017-05-11] VITALS (12 sets, daily range): BP systolic 105–140; BP diastolic 56–68; PULSE 63–75; RESP 18–21
[2017-05-11] MEDS: ALBUTEROL/IPRATROPIUM (NEB) 3 ML AMP HHN SCH ×6 (00:26→21:45)
[2017-05-11] MEDS: ACCU-CHEK XX SCH (02:48)
[2017-05-11] MEDS: PANTOPRAZOLE (EC) 40 MG TAB PO SCH (06:08)
[2017-05-11 07:11] LABS: RETICULOCYTE COUNT % 5.8 % (0.5-1.5)
[2017-05-11 07:31] LABS: BILIRUBIN,INDIRECT 1.7 mg/dl (0-1.1); BILIRUBIN,TOTAL 1.7 mg/dl (0.2-1.3)
[2017-05-11 07:35] LABS: CALCIUM 8.6 mg/dl (8.4-10.2); CREATININE 3.85 mg/dl (0.61-1.24); POTASSIUM 4.5 mmol/L (3.5-5.1)
[2017-05-11] MEDS: FISH OIL 1,000 MG CAP PO SCH ×2 (08:08→20:56)
[2017-05-11] MEDS: GUAIFENESIN/DM (SR) TAB PO SCH ×2 (08:08→20:56)
[2017-05-11] MEDS: CITRIC ACID/SODIUM CITRATE 15 ML CUP PO SCH ×3 (08:08→21:51)
[2017-05-11] MEDS: TIOTROPIUM 18 MCG CAPSULE INHA DEV INH SCH (08:09)
[2017-05-11] MEDS: LINAGLIPTIN 5 MG TABLET PO SCH (08:09)
[2017-05-11] MEDS: EZETIMIBE 10 MG TAB PO SCH (08:09)
[2017-05-11] MEDS: AMLODIPINE 5 MG TAB PO SCH ×2 (08:10→20:57)
[2017-05-11] MEDS: FERROUS SULFATE (EC) 325 MG TAB PO SCH (08:10)
[2017-05-11] MEDS: MULTIVIT/CA CARB/B CMPLX/FA TAB PO SCH (08:10)
[2017-05-11] MEDS: FUROSEMIDE 20 MG INJ IV SCH ×2 (08:11→20:58)
[2017-05-11] MEDS: SALMETEROL/FLUTICASONE 250/50 INHA INH SCH ×2 (08:12→21:00)
[2017-05-11] MEDS: INSULIN ASPART [NOVOLOG] 3 ML PEN SC SCH ×7 (08:15→20:58)
[2017-05-11] MEDS: INSULIN GLARGINE [LANtus] 3 ML PEN SC SCH ×2 (08:15→20:58)
[2017-05-11 08:26] LABS: ABNORMAL IP MESSAGE 1; HEMATOCRIT 24.2 % (42.0-52.0); HEMOGLOBIN 8.5 g/dl (14.0-18.0); MEAN CORPUSCULAR HGB CONC 35.1 g/dl (32.0-37.0); NUCLEATED RED BLOOD CELLS% 1.1 /100WBC (0.0-0.0); POSITIVE DIFF @See below; RED BLOOD COUNT 2.66 10^6/ul (4.70-6.10); RED CELL DISTRIBUTION WIDTH 18.5 % (11.5-14.5)
[2017-05-11 08:28] LABS: PLATELET COUNT 189 10^3/UL (140-415); WHITE BLOOD COUNT 7.8 10^3/ul (4.8-10.8)
--- NOTE | 2017-05-11 08:42 | CONS ---
Date/Time of Note Date/Time of Note DATE: 05/11/17 TIME: 08:35 Consult Date/Type/Reason Admit Date/Time Apr 24, 2017 at 19:05 Initial Consult Date 05/10/17 Type of Consultation: NEPHROLOGY Ordering Provider: NANY PRIEST MANAGEMENT PROFESSOR Subjective Pt is comfortable this am. Denies pain or sob. No blood transfusion give yesterday. Denies rash or arthralgia. Makes some urine which is dark. Objective Vital Signs Date Time Temp Pulse Resp B/P Pulse Ox O2 Delivery O2 Flow Rate FiO2 05/11/17 07:46 98.2 73 18 131/58 95 05/11/17 04:11 21 05/08/17 17:21 Nasal Cannula 2.0 Intake and Output 05/10/17 05/10/17 05/11/17 15:00 23:00 07:00 Intake Total 300 ml 100 ml 500 ml Output Total 3300 ml Balance -3000 ml 100 ml 500 ml Exam NAD/A&Ox4 OP clear RRR no m/g/r CTA B Right IJ permacath-c/d/I Distended, obese, +BS, No HSM Trace LE edema Results/Medications Result Diagram: 05/11/17 0652 05/11/17 0652 Results 24 hrs Laboratory Tests Test 05/10/17 09:20 05/10/17 11:05 05/10/17 12:15 05/10/17 17:35 Stool Occult Blood NEGATIVE Bedside Glucose 209 209 198 Test 05/10/17 21:50 05/11/17 02:27 05/11/17 06:33 05/11/17 06:52 Bedside Glucose 109 145 Lab Scanned Report BLOOD TRANSFUSION White Blood Count 7.8 Red Blood Count 2.66 L Hemoglobin 8.5 L Hematocrit 24.2 L Mean Corpuscular Volume 91.0 Mean Corpuscular Hemoglobin 32.0 Mean Corpuscular Hemoglobin Concent 35.1 Red Cell Distribution Width 18.5 H Platelet Count 189 Mean Platelet Volume 12.0 H Nucleated Red Blood Cells % 1.1 H Absolute Reticulocyte Count 0.014 L Percent Reticulocyte Count 5.8 H Sodium Level 136 Potassium Level 4.5 Chloride Level 93 L Carbon Dioxide Level 31 Anion Gap 17 H Blood Urea Nitrogen 45 H Creatinine 3.85 H Glucose Level 188 Calcium Level 8.6 Total Bilirubin 1.7 H Direct Bilirubin 0.00 Indirect Bilirubin 1.7 H Lactate Dehydrogenase 753 H Test 05/11/17 07:59 Bedside Glucose 224 H Medications Current Medications Ondansetron HCl (Zofran Tab) 4 mg Q6H PRN PO NAUSEA AND/OR VOMITING; Start at 23:00 Nitroglycerin (Nitroglycerin (Sl Tab) 0.4 Mg) 1 tab Q5M PRN SL CHEST PAIN; Start 04/24/17 at 23:00 Docusate Sodium (Colace) 100 mg Q12H PRN PO CONSTIPATION; Start 04/24/17 at 23 :00 Bisacodyl (Dulcolax) 5 mg DAILY PRN PO CONSTIPATION; Start 04/24/17 at 23:00 Atorvastatin Calcium (Lipitor) 80 mg QHS PO Last administered on 05/10/17 21: 45; Admin Dose 80 MG; Start 04/25/17 at 21:00 Ergocalciferol (Drisdol) 50,000 unit Mo@09 PO Last administered on 05/06/17 09:13; Admin Dose 50,000 UNIT; Start 04/24/17 at 23:00 Ferrous Sulfate (Ferrous Sulfate (Ec)) 325 mg DAILY PO Last administered on 08:10; Admin Dose 325 MG; Start 04/25/17 at 09:00 Multivit/Ca Carb/ B Cmplx/FA/Prenat (Isabel-Brenda) 1 tab DAILY PO Last administered on 05/11/17 08:10; Admin Dose 1 TAB; Start 04/25/17 at 09:00 Pantoprazole (Protonix Tab) 40 mg DAILY@06 PO Last administered on 05/11/17 06:08; Admin Dose 40 MG; Start 04/25/17 at 06:00 Guaifenesin/ Dextromethorphan (Mucinex Dm) 1 tab BID PO Last administered on 08:08; Admin Dose 1 TAB; Start 04/25/17 at 03:15 Diagnostic Test (Pha) (Accu-Chek) 1 ea 02 XX Last administered on 05/11/17 02 :48; Admin Dose 1 EA; Start 04/26/17 at 02:00 Citric Acid/ Sodium Citrate (Bicitra) 30 ml TID PO Last administered on 08:08; Admin Dose 30 ML; Start 04/25/17 at 13:00 Aspirin (Aspirin) 81 mg DAILY PO Last administered on 04/30/17 10:05; Admin Dose 81 MG; Start 04/25/17 at 12:00; Status Future Hold Heparin Sodium (Porcine) (Heparin (5000 Units/0.5 ml)) 5,000 unit BID SC Last administered on 05/08/17 09:02; Admin Dose 5,000 UNIT; Start 04/26/17 at 09:00 ; Status Future Hold Miscellaneous Information 1 ea NOTE XX Last administered on 04/30/17 17:45; Admin Dose 1 EA; Start 04/25/17 at 12:00 Glucose (Glutose) 15 gm Q15M PRN PO DECREASED GLUCOSE; Start 04/25/17 at 12:00 Glucose (Glutose) 22.5 gm Q15M PRN PO DECREASED GLUCOSE; Start 04/25/17 at 12: 00 Dextrose (D50w Syringe) 25 ml Q15M PRN IV DECREASED GLUCOSE Last administered on 05/08/17 16:08; Admin Dose 25 ML; Start 04/25/17 at 12:00 Dextrose (D50w Syringe) 50 ml Q15M PRN IV DECREASED GLUCOSE Last administered on 05/09/17 00:39; Admin Dose 50 ML; Start 04/25/17 at 12:00 Glucagon (Glucagen) 1 mg Q15M PRN IM DECREASED GLUCOSE; Start 04/25/17 at 12: 00 Glucose (Glutose) 15 gm Q15M PRN BUCCAL DECREASED GLUCOSE; Start 04/25/17 at 12:00 Furosemide (Lasix) 20 mg BID IV Last administered on 05/11/17 08:11; Admin Dose 20 MG; Start 04/26/17 at 09:00 Fish Oil (Fish Oil) 2,000 mg BID PO Last administered on 05/11/17 08:08; Admin Dose 2,000 MG; Start 04/27/17 at 21:00 EZETIMIBE (Zetia) 10 mg DAILY PO Last administered on 05/11/17 08:09; Admin Dose 10 MG; Start 04/28/17 at 09:00 Morphine Sulfate (morphine) 2 mg Q4H PRN IV Pain Last administered on 10:24; Admin Dose 2 MG; Start 04/28/17 at 09:00 Linagliptin (Tradjenta) 5 mg DAILY PO Last administered on 05/11/17 08:09; Admin Dose 5 MG; Start 04/28/17 at 12:00 Tiotropium [place] (Spiriva) 1 inh DAILY INH Last administered on 05/11/17 08 :09; Admin Dose 1 INH; Start 04/30/17 at 13:30 Salmeterol Xinafoate/ Fluticasone (Advair 250/50 Diskus) 1 inh BID INH Last administered on 05/11/17 08:12; Admin Dose 1 INH; Start 04/30/17 at 21:00 Amlodipine Besylate (Norvasc) 5 mg BID PO Last administered on 05/11/17 08:10 ; Admin Dose 5 MG; Start 05/03/17 at 21:00 Carvedilol (Coreg) 3.125 mg BID PO Last administered on 05/11/17 08:10; Admin Dose 3.125 MG; Start 05/04/17 at 09:00 Insulin Glargine (Lantus) 22 unit BID SC Last administered on 05/11/17 08:15 ; Admin Dose 22 UNIT; Start 05/09/17 at 21:00 Epoetin Jero (Epogen (Esrd)) 6,000 units TuThSa@17 SC ; Start 05/11/17 at 17:00 Assessment/Plan Additional Assessment/Plan Pt is a 66yo male with h/o CAD, DM, CKD now leading to ESRD and requiring HD, who is acutely anemic. Stool ob negative. Haptoglobin low and LDH elevated. Indirect bilirubin elevated. Appears to have some element of hemolysis. No hepatosplenomegaly seen on CT A/P. No signs of occult b-cell lymphoproliferative disorder or leukemia. Need to rule out Coomb's positive hemolytic anemia. Coomb's test pending. Drug induced hemolytic anemia is a possibility but upon review of current medications not clear which one may be contributing. Hydralazine was previously ordered. Pt has aortic sclerosis but he does not have a harsh murmur to suggest turbulent flow. Consider 2D Echo if not done recently. -Monitor CBC daily along with retic, ldh, haptoglobin -Await Coomb's test -Check Cold agglutinin titers -Check SHAILESH, -Pt have G6PD def but not sure how to order here -Consider flow cytometry on peripheral blood to screen for occult b-cell disorder and or PNH if current w/u negative -Keep Hb over 7g/dl -Cont Epo with HD Antoni Horne MD Hematology Covering for ANTONI Chow May 11, 2017 08:42
[2017-05-11] MEDS ORDERED: FOLIC ACID 1 MG TAB PO ONE (09:00)
--- NOTE | 2017-05-11 09:14 | PN ---
Date/Time of Note Date/Time of Note DATE: 05/11/17 TIME: 09:12 Assessment/Plan VTE Prophylaxis VTE Prophylaxis Intervention: contraindicated Lines/Catheters [facility] permacath Urinary Cath still in place: No Assessment/Plan Chief Complaint/Hosp Course 1. Acute respiratory failure. Hypoxic. Most probably secondary to underlying fluid overload and COPD exacerbation. Continue HD per nephrology. Continue inhaled bronchodilators. Continue supplemental oxygen. 2. Intermittent Mobitz type I block. Patient asymptomatic. Cardiology following. 3. Acute on chronic congestive heart failure exacerbation. Diastolic dysfunction. Continue hemodialysis as per nephrology. 4. Moderate distal esophagitis. Continue PPI. 5. Pulmonary hypertension. PA systolic pressure 44 mmHg. Continue supplemental oxygen. 6. CAD. Status post PTCA in the past. Aspirin on hold because anemia. 7. Metabolic acidosis. Most probably secondary to worsening renal function. On Bicitra as per nephrology. 8. Dyslipidemia. Continue statins. 9. Diabetes mellitus type 2. Continue sliding scale insulin along with basal insulin and pre-meal insulin. Adjust insulin dosing to obtain optimal blood sugar control. Endocrinology following. 10. Essential hypertension. Continue antihypertensives. 11. DVT of the left popliteal vein. Anticoagulation on hold because of anemia. 12. Acute on chronic chronic kidney disease. The patient being followed by nephrology. The patient was newly started on hemodialysis. 13. Normocytic, normochromic anemia. Status post multiple units of PRBC transfusion. EGDscopy negative for any active bleeding sites. Evidence of hemolysis. 14. Fluids, electrolytes, and nutrition. Carbohydrate controlled, low- cholesterol diet. 15. DVT prophylaxis. Subcutaneous heparin on hold because of worsening anemia. 16. Plan. Continue hemodialysis as per nephrology. Hematology following for evaluation of hemolytic anemia. The patient was seen in collaboration with Dr. Jackson. Problems: Subjective 24 Hr Interval Summary Free Text/Dictation Denies any dyspnea or chest pain. Exam/Review of Systems Vital Signs Vitals Vital Signs Date Time Temp Pulse Resp B/P Pulse Ox O2 Delivery O2 Flow Rate FiO2 05/11/17 08:46 94 21 05/11/17 08:45 87 18 05/11/17 07:46 98.2 131/58 05/08/17 17:21 Nasal Cannula 2.0 Intake and Output 05/10/17 05/10/17 05/11/17 15:00 23:00 07:00 Intake Total 300 ml 100 ml 500 ml Output Total 3300 ml Balance -3000 ml 100 ml 500 ml Exam General: Obese 66 year-old male lying in bed in no apparent distress. HEENT: Normocephalic, atraumatic. Eyes: Anicteric sclerae, conjunctivae clear. ENT: Nasal septum midline, oral mucosa moist. Neck supple, JVD noticed. Respiratory: Bilaterally diminished breath sounds. No use of accessory muscles of respiration. Cardiovascular: S1, S2 heard. Regular rate and rhythm. Abdomen: Soft, nontender, and nondistended. Bowel sounds positive in all 4 quadrants. Genitourinary: Deferred. Extremities: No cyanosis. B/L 1+ pedal edema. Peripheral pulses palpable. Neurologic: Cranial nerves II through XII grossly intact. The patient is awake, alert, and oriented. Skin: Normal skin turgor. No skin rashes. Results Result Diagram: 05/11/17 0652 05/11/17 0652 Results 24 hrs Laboratory Tests Test 05/10/17 09:20 05/10/17 11:05 05/10/17 12:15 05/10/17 17:35 Stool Occult Blood NEGATIVE Bedside Glucose 209 209 198 Test 05/10/17 21:50 05/11/17 02:27 05/11/17 06:33 05/11/17 06:52 Bedside Glucose 109 145 Lab Scanned Report BLOOD TRANSFUSION White Blood Count 7.8 Red Blood Count 2.66 L Hemoglobin 8.5 L Hematocrit 24.2 L Mean Corpuscular Volume 91.0 Mean Corpuscular Hemoglobin 32.0 Mean Corpuscular Hemoglobin Concent 35.1 Red Cell Distribution Width 18.5 H Platelet Count 189 Mean Platelet Volume 12.0 H Nucleated Red Blood Cells % 1.1 H Absolute Reticulocyte Count 0.014 L Percent Reticulocyte Count 5.8 H Sodium Level 136 Potassium Level 4.5 Chloride Level 93 L Carbon Dioxide Level 31 Anion Gap 17 H Blood Urea Nitrogen 45 H Creatinine 3.85 H Glucose Level 188 Calcium Level 8.6 Total Bilirubin 1.7 H Direct Bilirubin 0.00 Indirect Bilirubin 1.7 H Lactate Dehydrogenase 753 H Test 05/11/17 07:59 Bedside Glucose 224 H Medications Medications Current Medications Ondansetron HCl (Zofran Tab) 4 mg Q6H PRN PO NAUSEA AND/OR VOMITING; Start at 23:00 Nitroglycerin (Nitroglycerin (Sl Tab) 0.4 Mg) 1 tab Q5M PRN SL CHEST PAIN; Start 04/24/17 at 23:00 Docusate Sodium (Colace) 100 mg Q12H PRN PO CONSTIPATION; Start 04/24/17 at 23 :00 Bisacodyl (Dulcolax) 5 mg DAILY PRN PO CONSTIPATION; Start 04/24/17 at 23:00 Atorvastatin Calcium (Lipitor) 80 mg QHS PO Last administered on 05/10/17 21: 45; Admin Dose 80 MG; Start 04/25/17 at 21:00 Ergocalciferol (Drisdol) 50,000 unit Mo@09 PO Last administered on 05/06/17 09:13; Admin Dose 50,000 UNIT; Start 04/24/17 at 23:00 Ferrous Sulfate (Ferrous Sulfate (Ec)) 325 mg DAILY PO Last administered on 08:10; Admin Dose 325 MG; Start 04/25/17 at 09:00 Multivit/Ca Carb/ B Cmplx/FA/Prenat (Isabel-Brenda) 1 tab DAILY PO Last administered on 05/11/17 08:10; Admin Dose 1 TAB; Start 04/25/17 at 09:00 Pantoprazole (Protonix Tab) 40 mg DAILY@06 PO Last administered on 05/11/17 06:08; Admin Dose 40 MG; Start 04/25/17 at 06:00 Guaifenesin/ Dextromethorphan (Mucinex Dm) 1 tab BID PO Last administered on 08:08; Admin Dose 1 TAB; Start 04/25/17 at 03:15 Diagnostic Test (Pha) (Accu-Chek) 1 ea 02 XX Last administered on 05/11/17 02 :48; Admin Dose 1 EA; Start 04/26/17 at 02:00 Citric Acid/ Sodium Citrate (Bicitra) 30 ml TID PO Last administered on 08:08; Admin Dose 30 ML; Start 04/25/17 at 13:00 Aspirin (Aspirin) 81 mg DAILY PO Last administered on 04/30/17 10:05; Admin Dose 81 MG; Start 04/25/17 at 12:00; Status Future Hold Heparin Sodium (Porcine) (Heparin (5000 Units/0.5 ml)) 5,000 unit BID SC Last administered on 05/08/17 09:02; Admin Dose 5,000 UNIT; Start 04/26/17 at 09:00 ; Status Future Hold Miscellaneous Information 1 ea NOTE XX Last administered on 04/30/17 17:45; Admin Dose 1 EA; Start 04/25/17 at 12:00 Glucose (Glutose) 15 gm Q15M PRN PO DECREASED GLUCOSE; Start 04/25/17 at 12:00 Glucose (Glutose) 22.5 gm Q15M PRN PO DECREASED GLUCOSE; Start 04/25/17 at 12: 00 Dextrose (D50w Syringe) 25 ml Q15M PRN IV DECREASED GLUCOSE Last administered on 05/08/17 16:08; Admin Dose 25 ML; Start 04/25/17 at 12:00 Dextrose (D50w Syringe) 50 ml Q15M PRN IV DECREASED GLUCOSE Last administered on 05/09/17 00:39; Admin Dose 50 ML; Start 04/25/17 at 12:00 Glucagon (Glucagen) 1 mg Q15M PRN IM DECREASED GLUCOSE; Start 04/25/17 at 12: 00 Glucose (Glutose) 15 gm Q15M PRN BUCCAL DECREASED GLUCOSE; Start 04/25/17 at 12:00 Furosemide (Lasix) 20 mg BID IV Last administered on 05/11/17 08:11; Admin Dose 20 MG; Start 04/26/17 at 09:00 Fish Oil (Fish Oil) 2,000 mg BID PO Last administered on 05/11/17 08:08; Admin Dose 2,000 MG; Start 04/27/17 at 21:00 EZETIMIBE (Zetia) 10 mg DAILY PO Last administered on 05/11/17 08:09; Admin Dose 10 MG; Start 04/28/17 at 09:00 Morphine Sulfate (morphine) 2 mg Q4H PRN IV Pain Last administered on 10:24; Admin Dose 2 MG; Start 04/28/17 at 09:00 Linagliptin (Tradjenta) 5 mg DAILY PO Last administered on 05/11/17 08:09; Admin Dose 5 MG; Start 04/28/17 at 12:00 Tiotropium [place] (Spiriva) 1 inh DAILY INH Last administered on 05/11/17 08 :09; Admin Dose 1 INH; Start 04/30/17 at 13:30 Salmeterol Xinafoate/ Fluticasone (Advair 250/50 Diskus) 1 inh BID INH Last administered on 05/11/17 08:12; Admin Dose 1 INH; Start 04/30/17 at 21:00 Amlodipine Besylate (Norvasc) 5 mg BID PO Last administered on 05/11/17 08:10 ; Admin Dose 5 MG; Start 05/03/17 at 21:00 Carvedilol (Coreg) 3.125 mg BID PO Last administered on 05/11/17 08:10; Admin Dose 3.125 MG; Start 05/04/17 at 09:00 Insulin Glargine (Lantus) 22 unit BID SC Last administered on 05/11/17 08:15 ; Admin Dose 22 UNIT; Start 05/09/17 at 21:00 Epoetin Jero (Epogen (Esrd)) 6,000 units TuThSa@17 SC ; Start 05/11/17 at 17:00 NANY PRIEST NP May 11, 2017 09:14
[2017-05-11 09:51] LABS: ANISOCYTOSIS 1+ (0-0); EOSINOPHILS % (M) 2 % (0-7); GIANT THROMBO% (M) 2 % (0-0); MICROCYTOSIS 1+ (0-0); MONOCYTES % (M) 12 % (0-11); PLATELET ESTIMATE NORMAL; POIKILOCYTOSIS 2+ (0-0); POLYCHROMASIA 1+ (0-0)
--- NOTE | 2017-05-11 09:59 | PN ---
Date/Time of Note Date/Time of Note DATE: 05/11/17 TIME: 09:57 Assessment/Plan VTE Prophylaxis VTE Prophylaxis Intervention: SCD's Lines/Catheters [facility] permacath Urinary Cath still in place: No Assessment/Plan Assessment/Plan Volume overload Acute kidney injury with history of CKD, started on hemodialysis Acute decompensated diastolic congestive heart failure Diabetes CAD with history of PCI over 10 years ago Hypertension Dyslipidemia History of DVT, previously on anticoagulation Acute blood loss anemia status post blood transfusion Intermittent Mobitz type I, asymptomatic - Aspirin and anticoagulation have been stopped secondary to recurrent anemia requiring blood transfusion. Patient undergoing workup by hematology. Fluid management via hemodialysis as per our nephrology colleagues. Blood pressure trend overall stable. Continue statin therapy. -continued [email or web address] Subjective 24 Hr Interval Summary Free Text/Dictation The patient with no cahgne Exam/Review of Systems Vital Signs Vitals Vital Signs Date Time Temp Pulse Resp B/P Pulse Ox O2 Delivery O2 Flow Rate FiO2 05/11/17 08:46 94 21 05/11/17 08:45 87 18 05/11/17 07:46 98.2 131/58 05/08/17 17:21 Nasal Cannula 2.0 Intake and Output 05/10/17 05/10/17 05/11/17 15:00 23:00 07:00 Intake Total 300 ml 100 ml 500 ml Output Total 3300 ml Balance -3000 ml 100 ml 500 ml Results Result Diagram: 05/11/17 0652 05/11/17 0652 Results 24 hrs Laboratory Tests Test 05/10/17 11:05 05/10/17 12:15 05/10/17 17:35 05/10/17 21:50 Bedside Glucose 209 209 198 109 Test 05/11/17 02:27 05/11/17 06:33 05/11/17 06:52 05/11/17 07:59 Bedside Glucose 145 224 H Lab Scanned Report BLOOD TRANSFUSION White Blood Count 7.8 Red Blood Count 2.66 L Hemoglobin 8.5 L Hematocrit 24.2 L Mean Corpuscular Volume 91.0 Mean Corpuscular Hemoglobin 32.0 Mean Corpuscular Hemoglobin Concent 35.1 Red Cell Distribution Width 18.5 H Platelet Count 189 Mean Platelet Volume 12.0 H Segmented Neutrophils % (Manual) 78 H Band Neutrophils % (Manual) 2 Lymphocytes % (Manual) 6 L Monocytes % (Manual) 12 H Eosinophils % (Manual) 2 Nucleated Red Blood Cells % 1.1 H Neutrophils # (Manual) 6.1 Band Neutrophils # 0.1 Absolute Lymphocytes (Manual) 0.4 L Absolute Monocytes (Manual) 0.9 Platelet Estimate NORMAL Giant Platelets 2 H Polychromasia 1+ Poikilocytosis 2+ Anisocytosis 1+ Microcytosis 1+ Absolute Reticulocyte Count 0.014 L Percent Reticulocyte Count 5.8 H Sodium Level 136 Potassium Level 4.5 Chloride Level 93 L Carbon Dioxide Level 31 Anion Gap 17 H Blood Urea Nitrogen 45 H Creatinine 3.85 H Glucose Level 188 Calcium Level 8.6 Total Bilirubin 1.7 H Direct Bilirubin 0.00 Indirect Bilirubin 1.7 H Lactate Dehydrogenase 753 H Medications Medications Current Medications Ondansetron HCl (Zofran Tab) 4 mg Q6H PRN PO NAUSEA AND/OR VOMITING; Start at 23:00 Nitroglycerin (Nitroglycerin (Sl Tab) 0.4 Mg) 1 tab Q5M PRN SL CHEST PAIN; Start 04/24/17 at 23:00 Docusate Sodium (Colace) 100 mg Q12H PRN PO CONSTIPATION; Start 04/24/17 at 23 :00 Bisacodyl (Dulcolax) 5 mg DAILY PRN PO CONSTIPATION; Start 04/24/17 at 23:00 Atorvastatin Calcium (Lipitor) 80 mg QHS PO Last administered on 05/10/17 21: 45; Admin Dose 80 MG; Start 04/25/17 at 21:00 Ergocalciferol (Drisdol) 50,000 unit Mo@09 PO Last administered on 05/06/17 09:13; Admin Dose 50,000 UNIT; Start 04/24/17 at 23:00 Ferrous Sulfate (Ferrous Sulfate (Ec)) 325 mg DAILY PO Last administered on 08:10; Admin Dose 325 MG; Start 04/25/17 at 09:00 Multivit/Ca Carb/ B Cmplx/FA/Prenat (Isabel-Brenda) 1 tab DAILY PO Last administered on 05/11/17 08:10; Admin Dose 1 TAB; Start 04/25/17 at 09:00 Pantoprazole (Protonix Tab) 40 mg DAILY@06 PO Last administered on 05/11/17 06:08; Admin Dose 40 MG; Start 04/25/17 at 06:00 Guaifenesin/ Dextromethorphan (Mucinex Dm) 1 tab BID PO Last administered on 08:08; Admin Dose 1 TAB; Start 04/25/17 at 03:15 Diagnostic Test (Pha) (Accu-Chek) 1 ea 02 XX Last administered on 05/11/17 02 :48; Admin Dose 1 EA; Start 04/26/17 at 02:00 Citric Acid/ Sodium Citrate (Bicitra) 30 ml TID PO Last administered on 08:08; Admin Dose 30 ML; Start 04/25/17 at 13:00 Aspirin (Aspirin) 81 mg DAILY PO Last administered on 04/30/17 10:05; Admin Dose 81 MG; Start 04/25/17 at 12:00; Status Future Hold Heparin Sodium (Porcine) (Heparin (5000 Units/0.5 ml)) 5,000 unit BID SC Last administered on 05/08/17 09:02; Admin Dose 5,000 UNIT; Start 04/26/17 at 09:00 ; Status Future Hold Miscellaneous Information 1 ea NOTE XX Last administered on 04/30/17 17:45; Admin Dose 1 EA; Start 04/25/17 at 12:00 Glucose (Glutose) 15 gm Q15M PRN PO DECREASED GLUCOSE; Start 04/25/17 at 12:00 Glucose (Glutose) 22.5 gm Q15M PRN PO DECREASED GLUCOSE; Start 04/25/17 at 12: 00 Dextrose (D50w Syringe) 25 ml Q15M PRN IV DECREASED GLUCOSE Last administered on 05/08/17 16:08; Admin Dose 25 ML; Start 04/25/17 at 12:00 Dextrose (D50w Syringe) 50 ml Q15M PRN IV DECREASED GLUCOSE Last administered on 05/09/17 00:39; Admin Dose 50 ML; Start 04/25/17 at 12:00 Glucagon (Glucagen) 1 mg Q15M PRN IM DECREASED GLUCOSE; Start 04/25/17 at 12: 00 Glucose (Glutose) 15 gm Q15M PRN BUCCAL DECREASED GLUCOSE; Start 04/25/17 at 12:00 Furosemide (Lasix) 20 mg BID IV Last administered on 05/11/17 08:11; Admin Dose 20 MG; Start 04/26/17 at 09:00 Fish Oil (Fish Oil) 2,000 mg BID PO Last administered on 05/11/17 08:08; Admin Dose 2,000 MG; Start 04/27/17 at 21:00 EZETIMIBE (Zetia) 10 mg DAILY PO Last administered on 05/11/17 08:09; Admin Dose 10 MG; Start 04/28/17 at 09:00 Morphine Sulfate (morphine) 2 mg Q4H PRN IV Pain Last administered on 10:24; Admin Dose 2 MG; Start 04/28/17 at 09:00 Linagliptin (Tradjenta) 5 mg DAILY PO Last administered on 05/11/17 08:09; Admin Dose 5 MG; Start 04/28/17 at 12:00 Tiotropium [place] (Spiriva) 1 inh DAILY INH Last administered on 05/11/17 08 :09; Admin Dose 1 INH; Start 04/30/17 at 13:30 Salmeterol Xinafoate/ Fluticasone (Advair 250/50 Diskus) 1 inh BID INH Last administered on 05/11/17 08:12; Admin Dose 1 INH; Start 04/30/17 at 21:00 Amlodipine Besylate (Norvasc) 5 mg BID PO Last administered on 05/11/17 08:10 ; Admin Dose 5 MG; Start 05/03/17 at 21:00 Carvedilol (Coreg) 3.125 mg BID PO Last administered on 05/11/17 08:10; Admin Dose 3.125 MG; Start 05/04/17 at 09:00 Insulin Glargine (Lantus) 22 unit BID SC Last administered on 05/11/17 08:15 ; Admin Dose 22 UNIT; Start 05/09/17 at 21:00 Epoetin Jero (Epogen (Esrd)) 6,000 units TuThSa@17 SC ; Start 05/11/17 at 17:00 RONN BAZAN MD May 11, 2017 09:59
[2017-05-11 11:13] LABS: IMMUNOGLOBULIN A 123 mg/dl (70-400); IMMUNOGLOBULIN G 917 mg/dl (700-1600); IMMUNOGLOBULIN M 165 mg/dl (40-230)
--- NOTE | 2017-05-11 12:27 | CONS ---
Date/Time of Note Date/Time of Note DATE: 05/11/17 TIME: 12:25 Consult Date/Type/Reason Admit Date/Time Apr 24, 2017 at 19:05 Initial Consult Date 05/01/17 Type of Consultation: Pulmonary Ordering Provider: NANY PRIEST [employer]IOR [employer] Subjective Patient comfortable today. Sitting up in chair. No shortness of breath. Labs remain stable. Objective Vital Signs Date Time Temp Pulse Resp B/P Pulse Ox O2 Delivery O2 Flow Rate FiO2 05/11/17 11:18 98.1 79 19 105/59 96 05/11/17 08:46 21 05/08/17 17:21 Nasal Cannula 2.0 Intake and Output 05/10/17 05/10/17 05/11/17 15:00 23:00 07:00 Intake Total 300 ml 100 ml 500 ml Output Total 3300 ml Balance -3000 ml 100 ml 500 ml Exam PHYSICAL EXAMINATION GENERAL: Elderly gentleman, comfortable at rest no acute distress VITAL SIGNS: see below. HEENT: Pupils equal, round, and reactive to light. CARDIAC: S1, S2, 1/6 systolic ejection murmur CHEST: Diminished air entry bilaterally. ABDOMEN: Mildly distended. Bowel sounds present no guarding or rebound EXTREMITIES: No cyanosis, clubbing edema +1 NEUROLOGIC: Generalized weakness Results/Medications Result Diagram: 05/11/17 0652 05/11/17 0652 Results 24 hrs Laboratory Tests Test 05/10/17 17:35 05/10/17 21:50 05/11/17 02:27 05/11/17 06:33 Bedside Glucose 198 109 145 Lab Scanned Report BLOOD TRANSFUSION Test 05/11/17 06:40 05/11/17 06:52 05/11/17 07:59 05/11/17 12:05 Immunoglobulin G 917 Immunoglobulin A 123 Immunoglobulin M 165 White Blood Count 7.8 Red Blood Count 2.66 L Hemoglobin 8.5 L Hematocrit 24.2 L Mean Corpuscular Volume 91.0 Mean Corpuscular Hemoglobin 32.0 Mean Corpuscular Hemoglobin Concent 35.1 Red Cell Distribution Width 18.5 H Platelet Count 189 Mean Platelet Volume 12.0 H Segmented Neutrophils % (Manual) 78 H Band Neutrophils % (Manual) 2 Lymphocytes % (Manual) 6 L Monocytes % (Manual) 12 H Eosinophils % (Manual) 2 Nucleated Red Blood Cells % 1.1 H Neutrophils # (Manual) 6.1 Band Neutrophils # 0.1 Absolute Lymphocytes (Manual) 0.4 L Absolute Monocytes (Manual) 0.9 Platelet Estimate NORMAL Giant Platelets 2 H Polychromasia 1+ Poikilocytosis 2+ Anisocytosis 1+ Microcytosis 1+ Absolute Reticulocyte Count 0.014 L Percent Reticulocyte Count 5.8 H Sodium Level 136 Potassium Level 4.5 Chloride Level 93 L Carbon Dioxide Level 31 Anion Gap 17 H Blood Urea Nitrogen 45 H Creatinine 3.85 H Glucose Level 188 Calcium Level 8.6 Total Bilirubin 1.7 H Direct Bilirubin 0.00 Indirect Bilirubin 1.7 H Lactate Dehydrogenase 753 H Bedside Glucose 224 H 147 Medications Current Medications Ondansetron HCl (Zofran Tab) 4 mg Q6H PRN PO NAUSEA AND/OR VOMITING; Start at 23:00 Nitroglycerin (Nitroglycerin (Sl Tab) 0.4 Mg) 1 tab Q5M PRN SL CHEST PAIN; Start 04/24/17 at 23:00 Docusate Sodium (Colace) 100 mg Q12H PRN PO CONSTIPATION; Start 04/24/17 at 23 :00 Bisacodyl (Dulcolax) 5 mg DAILY PRN PO CONSTIPATION; Start 04/24/17 at 23:00 Atorvastatin Calcium (Lipitor) 80 mg QHS PO Last administered on 05/10/17 21: 45; Admin Dose 80 MG; Start 04/25/17 at 21:00 Ergocalciferol (Drisdol) 50,000 unit Mo@09 PO Last administered on 05/06/17 09:13; Admin Dose 50,000 UNIT; Start 04/24/17 at 23:00 Ferrous Sulfate (Ferrous Sulfate (Ec)) 325 mg DAILY PO Last administered on 08:10; Admin Dose 325 MG; Start 04/25/17 at 09:00 Multivit/Ca Carb/ B Cmplx/FA/Prenat (Isabel-Brenda) 1 tab DAILY PO Last administered on 05/11/17 08:10; Admin Dose 1 TAB; Start 04/25/17 at 09:00 Pantoprazole (Protonix Tab) 40 mg DAILY@06 PO Last administered on 05/11/17 06:08; Admin Dose 40 MG; Start 04/25/17 at 06:00 Guaifenesin/ Dextromethorphan (Mucinex Dm) 1 tab BID PO Last administered on 08:08; Admin Dose 1 TAB; Start 04/25/17 at 03:15 Diagnostic Test (Pha) (Accu-Chek) 1 ea 02 XX Last administered on 05/11/17 02 :48; Admin Dose 1 EA; Start 04/26/17 at 02:00 Citric Acid/ Sodium Citrate (Bicitra) 30 ml TID PO Last administered on 08:08; Admin Dose 30 ML; Start 04/25/17 at 13:00 Aspirin (Aspirin) 81 mg DAILY PO Last administered on 04/30/17 10:05; Admin Dose 81 MG; Start 04/25/17 at 12:00; Status Future Hold Heparin Sodium (Porcine) (Heparin (5000 Units/0.5 ml)) 5,000 unit BID SC Last administered on 05/08/17 09:02; Admin Dose 5,000 UNIT; Start 04/26/17 at 09:00 ; Status Future Hold Miscellaneous Information 1 ea NOTE XX Last administered on 04/30/17 17:45; Admin Dose 1 EA; Start 04/25/17 at 12:00 Glucose (Glutose) 15 gm Q15M PRN PO DECREASED GLUCOSE; Start 04/25/17 at 12:00 Glucose (Glutose) 22.5 gm Q15M PRN PO DECREASED GLUCOSE; Start 04/25/17 at 12: 00 Dextrose (D50w Syringe) 25 ml Q15M PRN IV DECREASED GLUCOSE Last administered on 05/08/17 16:08; Admin Dose 25 ML; Start 04/25/17 at 12:00 Dextrose (D50w Syringe) 50 ml Q15M PRN IV DECREASED GLUCOSE Last administered on 05/09/17 00:39; Admin Dose 50 ML; Start 04/25/17 at 12:00 Glucagon (Glucagen) 1 mg Q15M PRN IM DECREASED GLUCOSE; Start 04/25/17 at 12: 00 Glucose (Glutose) 15 gm Q15M PRN BUCCAL DECREASED GLUCOSE; Start 04/25/17 at 12:00 Furosemide (Lasix) 20 mg BID IV Last administered on 05/11/17 08:11; Admin Dose 20 MG; Start 04/26/17 at 09:00 Fish Oil (Fish Oil) 2,000 mg BID PO Last administered on 05/11/17 08:08; Admin Dose 2,000 MG; Start 04/27/17 at 21:00 EZETIMIBE (Zetia) 10 mg DAILY PO Last administered on 05/11/17 08:09; Admin Dose 10 MG; Start 04/28/17 at 09:00 Morphine Sulfate (morphine) 2 mg Q4H PRN IV Pain Last administered on 10:24; Admin Dose 2 MG; Start 04/28/17 at 09:00 Linagliptin (Tradjenta) 5 mg DAILY PO Last administered on 05/11/17 08:09; Admin Dose 5 MG; Start 04/28/17 at 12:00 Tiotropium [place] (Spiriva) 1 inh DAILY INH Last administered on 05/11/17 08 :09; Admin Dose 1 INH; Start 04/30/17 at 13:30 Salmeterol Xinafoate/ Fluticasone (Advair 250/50 Diskus) 1 inh BID INH Last administered on 05/11/17 08:12; Admin Dose 1 INH; Start 04/30/17 at 21:00 Amlodipine Besylate (Norvasc) 5 mg BID PO Last administered on 05/11/17 08:10 ; Admin Dose 5 MG; Start 05/03/17 at 21:00 Carvedilol (Coreg) 3.125 mg BID PO Last administered on 05/11/17 08:10; Admin Dose 3.125 MG; Start 05/04/17 at 09:00 Insulin Glargine (Lantus) 22 unit BID SC Last administered on 05/11/17 08:15 ; Admin Dose 22 UNIT; Start 05/09/17 at 21:00 Epoetin Jero (Epogen (Esrd)) 6,000 units TuThSa@17 SC ; Start 05/11/17 at 17:00 Assessment/Plan Chief Complaint/Hosp Course IMP: 1. Pulmonary edema with COPD exacerbation with interval improvement. 2. End-stage renal disease, on hemodialysis. 3. Anemia. H&H continues to slowly drift down. 4. Diabetes. With hyperglycemia secondary to systemic steroids. 5. History of DVT. 6. History of hypertension. RECS: 1. HD/UF 2. Follow K+ 3. GI eval.? 4. DM control as per Endo Problems: VADGAMA,BROOKE V. MD, [facility] May 11, 2017 12:27
--- NOTE | 2017-05-11 14:29 | CONS ---
Date/Time of Note Date/Time of Note DATE: 05/11/17 TIME: 14:26 Assessment/Plan Assessment/Plan Chief Complaint/Hosp Course Pleasant [place] Citizen gentleman with his family present in the room reporting a 30 year history of diabetes mellitus type 2. He had been on oral agent therapy but as his kidneys declined he was transitioned over to a multiple daily injection regimen using Lantus and NovoLog. He intermittently takes full dose Januvia 100 mg despite his renal dysfunction Problems: (1) Diabetes mellitus type 2 in obese Status: Chronic Comment: The reduction is insulin is not having hypoglycemia. His sugars have drifted up a little bit but I think we will live with that for the moment to see if he continues to drift down. (2) End stage renal disease on dialysis due to type 2 diabetes mellitus Status: Chronic Comment: As per nephrology. (3) Normocytic anemia Status: Acute Comment: This is the main issue is keeping the patient in the hospital. He is already gone down a full gram and change since yesterday. I am again concerned about a hemolytic process. Hematology is involved with his care (4) COPD (chronic obstructive pulmonary disease) Status: Chronic Comment: Adequate control now Qualifiers: COPD type: emphysema Emphysema type: unspecified Qualified Code: J43.9 - Pulmonary emphysema, unspecified emphysema type (5) Diastolic dysfunction Status: Chronic Comment: Noted and stable (6) Essential hypertension Status: Chronic Comment: Controlled Consultation Date/Type/Reason Admit Date/Time Apr 24, 2017 at 19:05 Initial Consult Date 04/27/17 Type of Consultation: Endocrinology Reason for Consultation Diabetes mellitus type 2 with end-stage renal disease; Referring Provider: NANY PRIEST NP 24 HR Interval Summary Free Text/Dictation Patient without changes but is not having hypoglycemia Exam/Review of Systems Vital Signs Vitals Vital Signs Date Time Temp Pulse Resp B/P Pulse Ox O2 Delivery O2 Flow Rate FiO2 05/11/17 12:59 18 95 21 05/11/17 12:08 65 05/11/17 11:18 98.1 105/59 05/08/17 17:21 Nasal Cannula 2.0 Intake and Output 05/10/17 05/10/17 05/11/17 14:59 22:59 06:59 Intake Total 300 ml 100 ml 500 ml Output Total 3300 ml Balance -3000 ml 100 ml 500 ml Results No changes Result Diagram: 05/11/17 0652 05/11/17 0652 Results 24 hrs Laboratory Tests Test 05/10/17 17:35 05/10/17 21:50 05/11/17 02:27 05/11/17 06:33 Bedside Glucose 198 109 145 Lab Scanned Report BLOOD TRANSFUSION Test 05/11/17 06:40 05/11/17 06:52 05/11/17 07:59 05/11/17 12:05 Immunoglobulin G 917 Immunoglobulin A 123 Immunoglobulin M 165 White Blood Count 7.8 Red Blood Count 2.66 L Hemoglobin 8.5 L Hematocrit 24.2 L Mean Corpuscular Volume 91.0 Mean Corpuscular Hemoglobin 32.0 Mean Corpuscular Hemoglobin Concent 35.1 Red Cell Distribution Width 18.5 H Platelet Count 189 Mean Platelet Volume 12.0 H Segmented Neutrophils % (Manual) 78 H Band Neutrophils % (Manual) 2 Lymphocytes % (Manual) 6 L Monocytes % (Manual) 12 H Eosinophils % (Manual) 2 Nucleated Red Blood Cells % 1.1 H Neutrophils # (Manual) 6.1 Band Neutrophils # 0.1 Absolute Lymphocytes (Manual) 0.4 L Absolute Monocytes (Manual) 0.9 Platelet Estimate NORMAL Giant Platelets 2 H Polychromasia 1+ Poikilocytosis 2+ Anisocytosis 1+ Microcytosis 1+ Absolute Reticulocyte Count 0.014 L Percent Reticulocyte Count 5.8 H Sodium Level 136 Potassium Level 4.5 Chloride Level 93 L Carbon Dioxide Level 31 Anion Gap 17 H Blood Urea Nitrogen 45 H Creatinine 3.85 H Glucose Level 188 Calcium Level 8.6 Total Bilirubin 1.7 H Direct Bilirubin 0.00 Indirect Bilirubin 1.7 H Lactate Dehydrogenase 753 H Bedside Glucose 224 H 147 Medications Medications Current Medications Ondansetron HCl (Zofran Tab) 4 mg Q6H PRN PO NAUSEA AND/OR VOMITING; Start at 23:00 Nitroglycerin (Nitroglycerin (Sl Tab) 0.4 Mg) 1 tab Q5M PRN SL CHEST PAIN; Start 04/24/17 at 23:00 Docusate Sodium (Colace) 100 mg Q12H PRN PO CONSTIPATION; Start 04/24/17 at 23 :00 Bisacodyl (Dulcolax) 5 mg DAILY PRN PO CONSTIPATION; Start 04/24/17 at 23:00 Atorvastatin Calcium (Lipitor) 80 mg QHS PO Last administered on 05/10/17 21: 45; Admin Dose 80 MG; Start 04/25/17 at 21:00 Ergocalciferol (Drisdol) 50,000 unit Mo@09 PO Last administered on 05/06/17 09:13; Admin Dose 50,000 UNIT; Start 04/24/17 at 23:00 Ferrous Sulfate (Ferrous Sulfate (Ec)) 325 mg DAILY PO Last administered on 08:10; Admin Dose 325 MG; Start 04/25/17 at 09:00 Multivit/Ca Carb/ B Cmplx/FA/Prenat (Isabel-Brenda) 1 tab DAILY PO Last administered on 05/11/17 08:10; Admin Dose 1 TAB; Start 04/25/17 at 09:00 Pantoprazole (Protonix Tab) 40 mg DAILY@06 PO Last administered on 05/11/17 06:08; Admin Dose 40 MG; Start 04/25/17 at 06:00 Guaifenesin/ Dextromethorphan (Mucinex Dm) 1 tab BID PO Last administered on 08:08; Admin Dose 1 TAB; Start 04/25/17 at 03:15 Diagnostic Test (Pha) (Accu-Chek) 1 ea 02 XX Last administered on 05/11/17 02 :48; Admin Dose 1 EA; Start 04/26/17 at 02:00 Citric Acid/ Sodium Citrate (Bicitra) 30 ml TID PO Last administered on 12:32; Admin Dose 30 ML; Start 04/25/17 at 13:00 Aspirin (Aspirin) 81 mg DAILY PO Last administered on 04/30/17 10:05; Admin Dose 81 MG; Start 04/25/17 at 12:00; Status Future Hold Heparin Sodium (Porcine) (Heparin (5000 Units/0.5 ml)) 5,000 unit BID SC Last administered on 05/08/17 09:02; Admin Dose 5,000 UNIT; Start 04/26/17 at 09:00 ; Status Future Hold Miscellaneous Information 1 ea NOTE XX Last administered on 04/30/17 17:45; Admin Dose 1 EA; Start 04/25/17 at 12:00 Glucose (Glutose) 15 gm Q15M PRN PO DECREASED GLUCOSE; Start 04/25/17 at 12:00 Glucose (Glutose) 22.5 gm Q15M PRN PO DECREASED GLUCOSE; Start 04/25/17 at 12: 00 Dextrose (D50w Syringe) 25 ml Q15M PRN IV DECREASED GLUCOSE Last administered on 05/08/17 16:08; Admin Dose 25 ML; Start 04/25/17 at 12:00 Dextrose (D50w Syringe) 50 ml Q15M PRN IV DECREASED GLUCOSE Last administered on 05/09/17 00:39; Admin Dose 50 ML; Start 04/25/17 at 12:00 Glucagon (Glucagen) 1 mg Q15M PRN IM DECREASED GLUCOSE; Start 04/25/17 at 12: 00 Glucose (Glutose) 15 gm Q15M PRN BUCCAL DECREASED GLUCOSE; Start 04/25/17 at 12:00 Furosemide (Lasix) 20 mg BID IV Last administered on 05/11/17 08:11; Admin Dose 20 MG; Start 04/26/17 at 09:00 Fish Oil (Fish Oil) 2,000 mg BID PO Last administered on 05/11/17 08:08; Admin Dose 2,000 MG; Start 04/27/17 at 21:00 EZETIMIBE (Zetia) 10 mg DAILY PO Last administered on 05/11/17 08:09; Admin Dose 10 MG; Start 04/28/17 at 09:00 Morphine Sulfate (morphine) 2 mg Q4H PRN IV Pain Last administered on 10:24; Admin Dose 2 MG; Start 04/28/17 at 09:00 Linagliptin (Tradjenta) 5 mg DAILY PO Last administered on 05/11/17 08:09; Admin Dose 5 MG; Start 04/28/17 at 12:00 Tiotropium [place] (Spiriva) 1 inh DAILY INH Last administered on 05/11/17 08 :09; Admin Dose 1 INH; Start 04/30/17 at 13:30 Salmeterol Xinafoate/ Fluticasone (Advair 250/50 Diskus) 1 inh BID INH Last administered on 05/11/17 08:12; Admin Dose 1 INH; Start 04/30/17 at 21:00 Amlodipine Besylate (Norvasc) 5 mg BID PO Last administered on 05/11/17 08:10 ; Admin Dose 5 MG; Start 05/03/17 at 21:00 Carvedilol (Coreg) 3.125 mg BID PO Last administered on 05/11/17 08:10; Admin Dose 3.125 MG; Start 05/04/17 at 09:00 Insulin Glargine (Lantus) 22 unit BID SC Last administered on 05/11/17 08:15 ; Admin Dose 22 UNIT; Start 05/09/17 at 21:00 Epoetin Jero (Epogen (Esrd)) 6,000 units TuThSa@17 SC ; Start 05/11/17 at 17:00 MARA GRAYSON MD May 11, 2017 14:28
--- NOTE | 2017-05-11 17:09 | PN ---
Date/Time of Note Date/Time of Note DATE: 05/11/17 TIME: 17:03 Assessment/Plan VTE Prophylaxis VTE Prophylaxis Intervention: ambulation Lines/Catheters IV [facility] permacath Urinary Cath still in place: No Assessment/Plan Chief Complaint/Hosp Course Assessment: Anemia GI bleed etiology ruled out, possibly hemolytic anemia Blood transfusion 05/09/17 today Hgb down to 8.5 EGD 05/03/17 Impression: Moderate distal esophagitis. Post distal gastrectomy Billroth II anastomosis. Moderate bile reflux gastritis. Rule out H. pylori infection. Normal afferent and efferent jejunal mucosa Colonoscopy 05/03/17 Impression: Suboptimal examination due to poor preparation No gross lesions present. Moderate-sized internal hemorrhoids. Diabetes type 2 Acute kidney injury with history of CKD, on hemodialysis Congestive heart failure CAD with history of PCI over 10 years ago Hypertension Dyslipidemia History of DVT, previously on anticoagulation Intermittent Mobitz type I, asymptomatic Plan: Followed by hematology Small bowel x-ray - negative Monitor H&H and transfuse for hemoglobin less than 7.5 If no evidence of further bleeding repeat colonoscopy within 6 months to a year is recommended Continue PPI therapy Patient seen in collaboration with Subjective: Patient reports feeling well. Eating regular diet, urinating and having bowel movements normal in color. Patient was dialyzed yesterday. Patient is stable from GI standpoint, no signs of overt bleeding, at this point will sign off and will be available for consultation upon request. Continue monitoring H&H transfuse for hemoglobin less than 7.5. Patient has been examined and interviewed. All laboratory values and imaging studies have been reviewed. Course of action discussed with the nursing staff and the family. PHYSICAL EXAMINATION: GENERAL: Well developed, obese, well nourished, alert & oriented x 3, in no acute distress SKIN: No lesions, pale, no stigmata chronic liver disease, no evidence of bleeding diathesis LYMPHATIC: No palpable lymphadenopathy. HEAD: Normocephalic, atraumatic, no tenderness. EYES: Pupils equal reactive to light and accommodation, full extraocular movements, sclera clear, non-icteric, no discharge. EARS/NOSE AND THROAT: Ears normal, nose normal, oropharynx normal, oral membranes well hydrated without lesions. NECK: Supple, no masses, thyroid normal, JVP within normal limits, carotids normal without bruits. CHEST: Inspection within normal limits. Lung sounds are clear on auscultation CARDIOVASCULAR: Heart: Regular rate and rhythm, no murmurs, gallops or rubs. Peripheral pulses present within normal limits, no cyanosis, clubbing or edemas. No pulsatile abdominal mass RESPIRATORY: Lungs clear to auscultation and percussion, no wheezing, no rubs GASTROINTESTINAL AND LIVER: Abdomen: Soft, obese, non tender, non-distended, no hernias, no masses, no organomegaly, no ascites, no guarding, no rebound tenderness, normoactive bowel sounds. Rectal: Deferred. GENITOURINARY: Male genitalia within normal limits. EXTREMITIES: No cyanosis, clubbing or edema. Problems: Exam/Review of Systems Vital Signs Vitals Vital Signs Date Time Temp Pulse Resp B/P Pulse Ox O2 Delivery O2 Flow Rate FiO2 05/11/17 12:59 18 95 21 05/11/17 12:08 65 05/11/17 11:18 98.1 105/59 05/08/17 17:21 Nasal Cannula 2.0 Intake and Output 05/10/17 05/10/17 05/11/17 15:00 23:00 07:00 Intake Total 300 ml 100 ml 500 ml Output Total 3300 ml Balance -3000 ml 100 ml 500 ml Results Result Diagram: 05/11/17 0652 05/11/17 0652 Results 24 hrs Laboratory Tests Test 05/10/17 17:35 05/10/17 21:50 05/11/17 02:27 05/11/17 06:33 Bedside Glucose 198 109 145 Lab Scanned Report BLOOD TRANSFUSION Test 05/11/17 06:40 05/11/17 06:52 05/11/17 07:59 05/11/17 12:05 Immunoglobulin G 917 Immunoglobulin A 123 Immunoglobulin M 165 White Blood Count 7.8 Red Blood Count 2.66 L Hemoglobin 8.5 L Hematocrit 24.2 L Mean Corpuscular Volume 91.0 Mean Corpuscular Hemoglobin 32.0 Mean Corpuscular Hemoglobin Concent 35.1 Red Cell Distribution Width 18.5 H Platelet Count 189 Mean Platelet Volume 12.0 H Segmented Neutrophils % (Manual) 78 H Band Neutrophils % (Manual) 2 Lymphocytes % (Manual) 6 L Monocytes % (Manual) 12 H Eosinophils % (Manual) 2 Nucleated Red Blood Cells % 1.1 H Neutrophils # (Manual) 6.1 Band Neutrophils # 0.1 Absolute Lymphocytes (Manual) 0.4 L Absolute Monocytes (Manual) 0.9 Platelet Estimate NORMAL Giant Platelets 2 H Polychromasia 1+ Poikilocytosis 2+ Anisocytosis 1+ Microcytosis 1+ Absolute Reticulocyte Count 0.014 L Percent Reticulocyte Count 5.8 H Sodium Level 136 Potassium Level 4.5 Chloride Level 93 L Carbon Dioxide Level 31 Anion Gap 17 H Blood Urea Nitrogen 45 H Creatinine 3.85 H Glucose Level 188 Calcium Level 8.6 Total Bilirubin 1.7 H Direct Bilirubin 0.00 Indirect Bilirubin 1.7 H Lactate Dehydrogenase 753 H Bedside Glucose 224 H 147 Medications Medications Current Medications Ondansetron HCl (Zofran Tab) 4 mg Q6H PRN PO NAUSEA AND/OR VOMITING; Start at 23:00 Nitroglycerin (Nitroglycerin (Sl Tab) 0.4 Mg) 1 tab Q5M PRN SL CHEST PAIN; Start 04/24/17 at 23:00 Docusate Sodium (Colace) 100 mg Q12H PRN PO CONSTIPATION; Start 04/24/17 at 23 :00 Bisacodyl (Dulcolax) 5 mg DAILY PRN PO CONSTIPATION; Start 04/24/17 at 23:00 Atorvastatin Calcium (Lipitor) 80 mg QHS PO Last administered on 05/10/17 21: 45; Admin Dose 80 MG; Start 04/25/17 at 21:00 Ergocalciferol (Drisdol) 50,000 unit Mo@09 PO Last administered on 05/06/17 09:13; Admin Dose 50,000 UNIT; Start 04/24/17 at 23:00 Ferrous Sulfate (Ferrous Sulfate (Ec)) 325 mg DAILY PO Last administered on 08:10; Admin Dose 325 MG; Start 04/25/17 at 09:00 Multivit/Ca Carb/ B Cmplx/FA/Prenat (Isabel-Brenda) 1 tab DAILY PO Last administered on 05/11/17 08:10; Admin Dose 1 TAB; Start 04/25/17 at 09:00 Pantoprazole (Protonix Tab) 40 mg DAILY@06 PO Last administered on 05/11/17 06:08; Admin Dose 40 MG; Start 04/25/17 at 06:00 Guaifenesin/ Dextromethorphan (Mucinex Dm) 1 tab BID PO Last administered on 08:08; Admin Dose 1 TAB; Start 04/25/17 at 03:15 Diagnostic Test (Pha) (Accu-Chek) 1 ea 02 XX Last administered on 05/11/17 02 :48; Admin Dose 1 EA; Start 04/26/17 at 02:00 Citric Acid/ Sodium Citrate (Bicitra) 30 ml TID PO Last administered on 12:32; Admin Dose 30 ML; Start 04/25/17 at 13:00 Aspirin (Aspirin) 81 mg DAILY PO Last administered on 04/30/17 10:05; Admin Dose 81 MG; Start 04/25/17 at 12:00; Status Future Hold Heparin Sodium (Porcine) (Heparin (5000 Units/0.5 ml)) 5,000 unit BID SC Last administered on 05/08/17 09:02; Admin Dose 5,000 UNIT; Start 04/26/17 at 09:00 ; Status Future Hold Miscellaneous Information 1 ea NOTE XX Last administered on 04/30/17 17:45; Admin Dose 1 EA; Start 04/25/17 at 12:00 Glucose (Glutose) 15 gm Q15M PRN PO DECREASED GLUCOSE; Start 04/25/17 at 12:00 Glucose (Glutose) 22.5 gm Q15M PRN PO DECREASED GLUCOSE; Start 04/25/17 at 12: 00 Dextrose (D50w Syringe) 25 ml Q15M PRN IV DECREASED GLUCOSE Last administered on 05/08/17 16:08; Admin Dose 25 ML; Start 04/25/17 at 12:00 Dextrose (D50w Syringe) 50 ml Q15M PRN IV DECREASED GLUCOSE Last administered on 05/09/17 00:39; Admin Dose 50 ML; Start 04/25/17 at 12:00 Glucagon (Glucagen) 1 mg Q15M PRN IM DECREASED GLUCOSE; Start 04/25/17 at 12: 00 Glucose (Glutose) 15 gm Q15M PRN BUCCAL DECREASED GLUCOSE; Start 04/25/17 at 12:00 Furosemide (Lasix) 20 mg BID IV Last administered on 05/11/17 08:11; Admin Dose 20 MG; Start 04/26/17 at 09:00 Fish Oil (Fish Oil) 2,000 mg BID PO Last administered on 05/11/17 08:08; Admin Dose 2,000 MG; Start 04/27/17 at 21:00 EZETIMIBE (Zetia) 10 mg DAILY PO Last administered on 05/11/17 08:09; Admin Dose 10 MG; Start 04/28/17 at 09:00 Morphine Sulfate (morphine) 2 mg Q4H PRN IV Pain Last administered on 10:24; Admin Dose 2 MG; Start 04/28/17 at 09:00 Linagliptin (Tradjenta) 5 mg DAILY PO Last administered on 05/11/17 08:09; Admin Dose 5 MG; Start 04/28/17 at 12:00 Tiotropium [place] (Spiriva) 1 inh DAILY INH Last administered on 05/11/17 08 :09; Admin Dose 1 INH; Start 04/30/17 at 13:30 Salmeterol Xinafoate/ Fluticasone (Advair 250/50 Diskus) 1 inh BID INH Last administered on 05/11/17 08:12; Admin Dose 1 INH; Start 04/30/17 at 21:00 Amlodipine Besylate (Norvasc) 5 mg BID PO Last administered on 05/11/17 08:10 ; Admin Dose 5 MG; Start 05/03/17 at 21:00 Carvedilol (Coreg) 3.125 mg BID PO Last administered on 05/11/17 08:10; Admin Dose 3.125 MG; Start 05/04/17 at 09:00 Insulin Glargine (Lantus) 22 unit BID SC Last administered on 05/11/17 08:15 ; Admin Dose 22 UNIT; Start 05/09/17 at 21:00 Epoetin Jero (Epogen (Esrd)) 6,000 units TuThSa@17 SC ; Start 05/11/17 at 17:00 Copies To: CC: GERMÁN WAY MD, ANASTASIA NP May 11, 2017 17:09
[2017-05-11] MEDS: EPOETIN 3000 UNITS/1 ML INJ (ESRD) SC SCH (17:12)
--- NOTE | 2017-05-11 17:51 | CONS ---
Date/Time of Note Date/Time of Note DATE: 05/11/17 TIME: 17:51 Assessment/Plan Assessment/Plan Additional Assessment/Plan 1. 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 H/o CKD due to diabetic nehropathy as per pt was stage IV/V with eGFR 15 as outpatient 3. Acute hyperkalemia due to TROY on CKD - resolved after pt gets started on HD 4. Metabolic acidosis due to worsenign renal failure 5. H/ CAD S/p previous coronary angiogram as per patient 6. Hypertension 7. Type II DM 8. Hyperlipidemia 9. Acute NSETMI due to CHF 10. severe anemia despite getting PRBC, concerned abotu GI bleeding, Plan : hepatitis C antibody positive, Hepatitis A antibody positive EGD showed distal esophagitis, s/p Hd on Saturday- 3 L removed, will keep pt on MWF schedule HD [facility]000 [facility] TIW for anemia will follow up Consultation Date/Type/Reason Admit Date/Time Apr 24, 2017 at 19:05 Initial Consult Date 04/25/17 Type of Consultation: NEPHROLOGY Referring Provider: NANY PRIEST INSULATION BOARD BACK TENDER Exam/Review of Systems Vital Signs Vitals Vital Signs Date Time Temp Pulse Resp B/P Pulse Ox O2 Delivery O2 Flow Rate FiO2 05/11/17 16:05 66 05/11/17 12:59 18 95 21 05/11/17 11:18 98.1 105/59 05/08/17 17:21 Nasal Cannula 2.0 Intake and Output 05/10/17 05/10/17 05/11/17 15:00 23:00 07:00 Intake Total 300 ml 100 ml 500 ml Output Total 3300 ml Balance -3000 ml 100 ml 500 ml Exam Constitutional: alert Respiratory: clear to auscultation, diminished breath sounds, normal air movement, + right chest permacath Cardiovascular: nl pulses, regular rate and rhythm Gastrointestinal: non-tender, soft Musculoskeletal: muscle weakness, nl extremities to inspection, swelling Extremities: calf tenderness, normal pulses 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: SHRIMP HEADER II-XII intact, nl mental status, nl speech, nl strength Results Result Diagram: 05/11/17 0652 05/11/17 0652 Results 24 hrs Laboratory Tests Test 05/10/17 21:50 05/11/17 02:27 05/11/17 06:33 05/11/17 06:40 Bedside Glucose 109 145 Lab Scanned Report BLOOD TRANSFUSION Immunoglobulin G 917 Immunoglobulin A 123 Immunoglobulin M 165 Test 05/11/17 06:52 05/11/17 07:59 05/11/17 12:05 05/11/17 17:09 White Blood Count 7.8 Red Blood Count 2.66 L Hemoglobin 8.5 L Hematocrit 24.2 L Mean Corpuscular Volume 91.0 Mean Corpuscular Hemoglobin 32.0 Mean Corpuscular Hemoglobin Concent 35.1 Red Cell Distribution Width 18.5 H Platelet Count 189 Mean Platelet Volume 12.0 H Segmented Neutrophils % (Manual) 78 H Band Neutrophils % (Manual) 2 Lymphocytes % (Manual) 6 L Monocytes % (Manual) 12 H Eosinophils % (Manual) 2 Nucleated Red Blood Cells % 1.1 H Neutrophils # (Manual) 6.1 Band Neutrophils # 0.1 Absolute Lymphocytes (Manual) 0.4 L Absolute Monocytes (Manual) 0.9 Platelet Estimate NORMAL Giant Platelets 2 H Polychromasia 1+ Poikilocytosis 2+ Anisocytosis 1+ Microcytosis 1+ Absolute Reticulocyte Count 0.014 L Percent Reticulocyte Count 5.8 H Sodium Level 136 Potassium Level 4.5 Chloride Level 93 L Carbon Dioxide Level 31 Anion Gap 17 H Blood Urea Nitrogen 45 H Creatinine 3.85 H Glucose Level 188 Calcium Level 8.6 Total Bilirubin 1.7 H Direct Bilirubin 0.00 Indirect Bilirubin 1.7 H Lactate Dehydrogenase 753 H Bedside Glucose 224 H 147 169 Medications Medications Current Medications Ondansetron HCl (Zofran Tab) 4 mg Q6H PRN PO NAUSEA AND/OR VOMITING; Start at 23:00 Nitroglycerin (Nitroglycerin (Sl Tab) 0.4 Mg) 1 tab Q5M PRN SL CHEST PAIN; Start 04/24/17 at 23:00 Docusate Sodium (Colace) 100 mg Q12H PRN PO CONSTIPATION; Start 04/24/17 at 23 :00 Bisacodyl (Dulcolax) 5 mg DAILY PRN PO CONSTIPATION; Start 04/24/17 at 23:00 Atorvastatin Calcium (Lipitor) 80 mg QHS PO Last administered on 05/10/17 21: 45; Admin Dose 80 MG; Start 04/25/17 at 21:00 Ergocalciferol (Drisdol) 50,000 unit Mo@09 PO Last administered on 05/06/17 09:13; Admin Dose 50,000 UNIT; Start 04/24/17 at 23:00 Ferrous Sulfate (Ferrous Sulfate (Ec)) 325 mg DAILY PO Last administered on 08:10; Admin Dose 325 MG; Start 04/25/17 at 09:00 Multivit/Ca Carb/ B Cmplx/FA/Prenat (Isabel-Brenda) 1 tab DAILY PO Last administered on 05/11/17 08:10; Admin Dose 1 TAB; Start 04/25/17 at 09:00 Pantoprazole (Protonix Tab) 40 mg DAILY@06 PO Last administered on 05/11/17 06:08; Admin Dose 40 MG; Start 04/25/17 at 06:00 Guaifenesin/ Dextromethorphan (Mucinex Dm) 1 tab BID PO Last administered on 08:08; Admin Dose 1 TAB; Start 04/25/17 at 03:15 Diagnostic Test (Pha) (Accu-Chek) 1 ea 02 XX Last administered on 05/11/17 02 :48; Admin Dose 1 EA; Start 04/26/17 at 02:00 Citric Acid/ Sodium Citrate (Bicitra) 30 ml TID PO Last administered on 12:32; Admin Dose 30 ML; Start 04/25/17 at 13:00 Aspirin (Aspirin) 81 mg DAILY PO Last administered on 04/30/17 10:05; Admin Dose 81 MG; Start 04/25/17 at 12:00; Status Future Hold Heparin Sodium (Porcine) (Heparin (5000 Units/0.5 ml)) 5,000 unit BID SC Last administered on 05/08/17 09:02; Admin Dose 5,000 UNIT; Start 04/26/17 at 09:00 ; Status Future Hold Miscellaneous Information 1 ea NOTE XX Last administered on 04/30/17 17:45; Admin Dose 1 EA; Start 04/25/17 at 12:00 Glucose (Glutose) 15 gm Q15M PRN PO DECREASED GLUCOSE; Start 04/25/17 at 12:00 Glucose (Glutose) 22.5 gm Q15M PRN PO DECREASED GLUCOSE; Start 04/25/17 at 12: 00 Dextrose (D50w Syringe) 25 ml Q15M PRN IV DECREASED GLUCOSE Last administered on 05/08/17 16:08; Admin Dose 25 ML; Start 04/25/17 at 12:00 Dextrose (D50w Syringe) 50 ml Q15M PRN IV DECREASED GLUCOSE Last administered on 05/09/17 00:39; Admin Dose 50 ML; Start 04/25/17 at 12:00 Glucagon (Glucagen) 1 mg Q15M PRN IM DECREASED GLUCOSE; Start 04/25/17 at 12: 00 Glucose (Glutose) 15 gm Q15M PRN BUCCAL DECREASED GLUCOSE; Start 04/25/17 at 12:00 Furosemide (Lasix) 20 mg BID IV Last administered on 05/11/17 08:11; Admin Dose 20 MG; Start 04/26/17 at 09:00 Fish Oil (Fish Oil) 2,000 mg BID PO Last administered on 05/11/17 08:08; Admin Dose 2,000 MG; Start 04/27/17 at 21:00 EZETIMIBE (Zetia) 10 mg DAILY PO Last administered on 05/11/17 08:09; Admin Dose 10 MG; Start 04/28/17 at 09:00 Morphine Sulfate (morphine) 2 mg Q4H PRN IV Pain Last administered on 10:24; Admin Dose 2 MG; Start 04/28/17 at 09:00 Linagliptin (Tradjenta) 5 mg DAILY PO Last administered on 05/11/17 08:09; Admin Dose 5 MG; Start 04/28/17 at 12:00 Tiotropium [place] (Spiriva) 1 inh DAILY INH Last administered on 05/11/17 08 :09; Admin Dose 1 INH; Start 04/30/17 at 13:30 Salmeterol Xinafoate/ Fluticasone (Advair 250/50 Diskus) 1 inh BID INH Last administered on 05/11/17 08:12; Admin Dose 1 INH; Start 04/30/17 at 21:00 Amlodipine Besylate (Norvasc) 5 mg BID PO Last administered on 05/11/17 08:10 ; Admin Dose 5 MG; Start 05/03/17 at 21:00 Carvedilol (Coreg) 3.125 mg BID PO Last administered on 05/11/17 08:10; Admin Dose 3.125 MG; Start 05/04/17 at 09:00 Insulin Glargine (Lantus) 22 unit BID SC Last administered on 05/11/17 08:15 ; Admin Dose 22 UNIT; Start 05/09/17 at 21:00 Epoetin Jero (Epogen (Esrd)) 6,000 units TuTa@17 SC Last administered on 17:12; Admin Dose 6,000 UNITS; Start 05/11/17 at 17:00 RAQUEL MCDOWELL MD May 11, 2017 17:51
[2017-05-11] MEDS: ATORVASTATIN 80 MG TAB PO SCH (20:56)
[2017-05-12] VITALS (11 sets, daily range): BP systolic 113–138; BP diastolic 57–65; PULSE 50–72; RESP 17–19
[2017-05-12] MEDS: ALBUTEROL/IPRATROPIUM (NEB) 3 ML AMP HHN SCH ×6 (00:47→21:03)
[2017-05-12] MEDS: ACCU-CHEK XX SCH (02:02)
[2017-05-12] MEDS: PANTOPRAZOLE (EC) 40 MG TAB PO SCH (05:55)
[2017-05-12 06:01] LABS: PROTEIN, TOTAL 5.9 g/dL (6.1-8.1)
[2017-05-12] MEDS: INSULIN ASPART [NOVOLOG] 3 ML PEN SC SCH ×7 (07:55→20:33)
--- NOTE | 2017-05-12 08:42 | CONS ---
Date/Time of Note Date/Time of Note DATE: 05/12/17 TIME: 08:38 Consult Date/Type/Reason Admit Date/Time Apr 24, 2017 at 19:05 Initial Consult Date 05/10/17 Type of Consultation: NEPHROLOGY Ordering Provider: NANY PRIEST PEN RIDER Subjective No new issues. Feels weak overall. Denies bruising or bleeding. Eating ok. Some mid back pain but chronic. No new pain. Objective Vital Signs Date Time Temp Pulse Resp B/P Pulse Ox O2 Delivery O2 Flow Rate FiO2 05/12/17 08:22 58 05/12/17 08:18 18 95 21 05/12/17 07:56 98.0 133/63 05/08/17 17:21 Nasal Cannula 2.0 Intake and Output 05/11/17 05/11/17 05/12/17 14:59 22:59 06:59 Intake Total 700 ml 200 ml Output Total 2 ml 3 ml Balance 698 ml 197 ml Results/Medications Result Diagram: 05/11/17 0652 05/11/17 0652 Results 24 hrs Laboratory Tests Test 05/11/17 12:05 05/11/17 17:09 05/11/17 20:55 05/12/17 07:59 Bedside Glucose 147 169 135 White Blood Count Pending Red Blood Count Pending Hemoglobin Pending Hematocrit Pending Mean Corpuscular Volume Pending Mean Corpuscular Hemoglobin Pending Mean Corpuscular Hemoglobin Concent Pending Red Cell Distribution Width Pending Platelet Count Pending Mean Platelet Volume Pending Medications Current Medications Ondansetron HCl (Zofran Tab) 4 mg Q6H PRN PO NAUSEA AND/OR VOMITING; Start at 23:00 Nitroglycerin (Nitroglycerin (Sl Tab) 0.4 Mg) 1 tab Q5M PRN SL CHEST PAIN; Start 04/24/17 at 23:00 Docusate Sodium (Colace) 100 mg Q12H PRN PO CONSTIPATION; Start 04/24/17 at 23 :00 Bisacodyl (Dulcolax) 5 mg DAILY PRN PO CONSTIPATION; Start 04/24/17 at 23:00 Atorvastatin Calcium (Lipitor) 80 mg QHS PO Last administered on 05/11/17t 20: 56; Admin Dose 80 MG; Start 04/25/17 at 21:00 Ergocalciferol (Drisdol) 50,000 unit Mo@09 PO Last administered on 05/06/17 09:13; Admin Dose 50,000 UNIT; Start 04/24/17 at 23:00 Ferrous Sulfate (Ferrous Sulfate (Ec)) 325 mg DAILY PO Last administered on 08:10; Admin Dose 325 MG; Start 04/25/17 at 09:00 Multivit/Ca Carb/ B Cmplx/FA/Prenat (Isabel-Brenda) 1 tab DAILY PO Last administered on 05/11/17 08:10; Admin Dose 1 TAB; Start 04/25/17 at 09:00 Pantoprazole (Protonix Tab) 40 mg DAILY@06 PO Last administered on 05/12/17 05:55; Admin Dose 40 MG; Start 04/25/17 at 06:00 Guaifenesin/ Dextromethorphan (Mucinex Dm) 1 tab BID PO Last administered on 20:56; Admin Dose 1 TAB; Start 04/25/17 at 03:15 Diagnostic Test (Pha) (Accu-Chek) 1 ea 02 XX Last administered on 05/12/17 02 :02; Admin Dose 1 EA; Start 04/26/17 at 02:00 Citric Acid/ Sodium Citrate (Bicitra) 30 ml TID PO Last administered on 21:51; Admin Dose 30 ML; Start 04/25/17 at 13:00 Aspirin (Aspirin) 81 mg DAILY PO Last administered on 04/30/17 10:05; Admin Dose 81 MG; Start 04/25/17 at 12:00; Status Future Hold Heparin Sodium (Porcine) (Heparin (5000 Units/0.5 ml)) 5,000 unit BID SC Last administered on 05/08/17 09:02; Admin Dose 5,000 UNIT; Start 04/26/17 at 09:00 ; Status Future Hold Miscellaneous Information 1 ea NOTE XX Last administered on 04/30/17 17:45; Admin Dose 1 EA; Start 04/25/17 at 12:00 Glucose (Glutose) 15 gm Q15M PRN PO DECREASED GLUCOSE; Start 04/25/17 at 12:00 Glucose (Glutose) 22.5 gm Q15M PRN PO DECREASED GLUCOSE; Start 04/25/17 at 12: 00 Dextrose (D50w Syringe) 25 ml Q15M PRN IV DECREASED GLUCOSE Last administered on 05/08/17 16:08; Admin Dose 25 ML; Start 04/25/17 at 12:00 Dextrose (D50w Syringe) 50 ml Q15M PRN IV DECREASED GLUCOSE Last administered on 05/09/17 00:39; Admin Dose 50 ML; Start 04/25/17 at 12:00 Glucagon (Glucagen) 1 mg Q15M PRN IM DECREASED GLUCOSE; Start 04/25/17 at 12: 00 Glucose (Glutose) 15 gm Q15M PRN BUCCAL DECREASED GLUCOSE; Start 04/25/17 at 12:00 Furosemide (Lasix) 20 mg BID IV Last administered on 05/11/17 20:58; Admin Dose 20 MG; Start 04/26/17 at 09:00 Fish Oil (Fish Oil) 2,000 mg BID PO Last administered on 05/11/17 20:56; Admin Dose 2,000 MG; Start 04/27/17 at 21:00 EZETIMIBE (Zetia) 10 mg DAILY PO Last administered on 05/11/17 08:09; Admin Dose 10 MG; Start 04/28/17 at 09:00 Morphine Sulfate (morphine) 2 mg Q4H PRN IV Pain Last administered on 10:24; Admin Dose 2 MG; Start 04/28/17 at 09:00 Linagliptin (Tradjenta) 5 mg DAILY PO Last administered on 05/11/17 08:09; Admin Dose 5 MG; Start 04/28/17 at 12:00 Tiotropium [place] (Spiriva) 1 inh DAILY INH Last administered on 05/11/17 08 :09; Admin Dose 1 INH; Start 04/30/17 at 13:30 Salmeterol Xinafoate/ Fluticasone (Advair 250/50 Diskus) 1 inh BID INH Last administered on 05/11/17 21:00; Admin Dose 1 INH; Start 04/30/17 at 21:00 Amlodipine Besylate (Norvasc) 5 mg BID PO Last administered on 05/11/17 20:57 ; Admin Dose 5 MG; Start 05/03/17 at 21:00 Carvedilol (Coreg) 3.125 mg BID PO Last administered on 05/11/17 20:57; Admin Dose 3.125 MG; Start 05/04/17 at 09:00 Insulin Glargine (Lantus) 22 unit BID SC Last administered on 05/11/17 08:15 ; Admin Dose 22 UNIT; Start 05/09/17 at 21:00 Epoetin Jero (Epogen (Esrd)) 6,000 units TuThSa@17 SC Last administered on 17:12; Admin Dose 6,000 UNITS; Start 05/11/17 at 17:00 Assessment/Plan Additional Assessment/Plan Pt is a 66yo male with h/o CAD, DM, CKD now leading to ESRD and requiring HD, who is acutely anemic. Stool ob negative. Haptoglobin low and LDH elevated. Indirect bilirubin elevated. Appears to have some element of hemolysis. No hepatosplenomegaly seen on CT A/P. No signs of occult b-cell lymphoproliferative disorder or leukemia. Need to rule out Coomb's positive hemolytic anemia. Coomb's test pending. Drug induced hemolytic anemia is a possibility but upon review of current medications not clear which one may be contributing. Hydralazine was previously ordered. Pt has aortic sclerosis but he does not have a harsh murmur to suggest turbulent flow. Consider 2D Echo if not done recently. -Monitor CBC daily along with retic, ldh, haptoglobin -Await Coomb's test. Will re-order. Not back yet. -Check Cold agglutinin titers. 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 If cold agglutinin anemia present, then consider bone marrow biopsy to rule out lymphoproliferative disorder. 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 Tx would be Rituxan in this case. -Check SHAILESH, -Pt have G6PD def but not sure how to order here -Consider flow cytometry on peripheral blood to screen for occult b-cell disorder and or PNH if current w/u negative -Keep Hb over 7g/dl -Cont Epo with HD Antoni Horne MD Hematology Covering for ANTONI Chow May 12, 2017 08:42
[2017-05-12] MEDS: CITRIC ACID/SODIUM CITRATE 15 ML CUP PO SCH ×3 (08:50→20:31)
[2017-05-12] MEDS: MULTIVIT/CA CARB/B CMPLX/FA TAB PO SCH (08:51)
[2017-05-12] MEDS: FERROUS SULFATE (EC) 325 MG TAB PO SCH (08:51)
[2017-05-12] MEDS: LINAGLIPTIN 5 MG TABLET PO SCH (08:51)
[2017-05-12] MEDS: EZETIMIBE 10 MG TAB PO SCH (08:51)
[2017-05-12] MEDS: FISH OIL 1,000 MG CAP PO SCH ×2 (08:51→20:31)
[2017-05-12] MEDS: GUAIFENESIN/DM (SR) TAB PO SCH ×2 (08:51→20:31)
[2017-05-12] MEDS: AMLODIPINE 5 MG TAB PO SCH ×2 (08:52→20:32)
[2017-05-12 08:53] LABS: PHOSPHORUS 4.2 mg/dl (2.5-4.9)
[2017-05-12] MEDS: SALMETEROL/FLUTICASONE 250/50 INHA INH SCH ×2 (08:53→20:28)
[2017-05-12] MEDS: FUROSEMIDE 20 MG INJ IV SCH ×2 (08:53→20:32)
[2017-05-12] MEDS: TIOTROPIUM 18 MCG CAPSULE INHA DEV INH SCH (08:53)
[2017-05-12 08:57] LABS: ALBUMIN 3.1 g/dl (3.3-4.9); ALBUMIN/GLOBULIN RATIO 1.03; BILIRUBIN,INDIRECT 1.3 mg/dl (0-1.1); BILIRUBIN,TOTAL 1.3 mg/dl (0.2-1.3); CALCIUM 8.8 mg/dl (8.4-10.2); CREATININE 4.43 mg/dl (0.61-1.24); POTASSIUM 4.6 mmol/L (3.5-5.1); TOTAL PROTEIN 6.1 g/dl (6.1-8.1)
[2017-05-12] MEDS: INSULIN GLARGINE [LANtus] 3 ML PEN SC SCH ×2 (09:05→20:33)
[2017-05-12 09:53] LABS: BASOPHILS % 0.5 % (0.0-2.0); EOSINOPHILS # 0.2 10^3/ul (0.0-0.5); EOSINOPHILS % 2.7 % (0.0-7.0); HEMATOCRIT 24.1 % (42.0-52.0); LYMPHOCYTES # 1.7 10^3/ul (0.8-2.9); LYMPHOCYTES % 21.3 % (15.0-51.0); MEAN CORPUSCULAR HEMOGLOBIN 31.8 pg (29.0-33.0); MEAN CORPUSCULAR HGB CONC 33.6 g/dl (32.0-37.0); MEAN CORPUSCULAR VOLUME 94.5 fl (82.0-101.0); MEAN PLATELET VOLUME 12.4 fl (7.4-10.4); MONOCYTE # 0.6 10^3/ul (0.3-0.9); MONOCYTES % 7.8 % (0.0-11.0); NEUTROPHIL # 5.5 10^3/ul (1.6-7.5); NEUTROPHILS % 67.3 % (39.0-77.0); RED BLOOD COUNT 2.55 10^6/ul (4.70-6.10); RED CELL DISTRIBUTION WIDTH 17.9 % (11.5-14.5)
--- NOTE | 2017-05-12 09:53 | CONS ---
Date/Time of Note Date/Time of Note DATE: 05/12/17 TIME: 09:50 Assessment/Plan Assessment/Plan Chief Complaint/Hosp Course Pleasant Litzy gentleman with his family present in the room reporting a 30 year history of diabetes mellitus type 2. He had been on oral agent therapy but as his kidneys declined he was transitioned over to a multiple daily injection regimen using Lantus and NovoLog. He intermittently takes full dose Januvia 100 mg despite his renal dysfunction Problems: (1) Diabetes mellitus type 2 in obese Status: Chronic Comment: Sugars are a little looser than I wanted to be with backing off on the insulin. I will adjust this minimally. (2) End stage renal disease on dialysis due to type 2 diabetes mellitus Status: Chronic Comment: As per nephrology. His anemia is related to this directly (3) Normocytic anemia Status: Acute Comment: Hematology seen the patient in consultation. I have gone ahead and ordered some of the tests that they had recommended. I am of the opinion the bone marrow biopsy is indicated here, since if it is normal and that would give us the direct indication for treatment of his chronic active hepatitis C. I believe that this is indeed a hemolytic process (4) COPD (chronic obstructive pulmonary disease) Status: Chronic Comment: Adequate control with medications Qualifiers: COPD type: emphysema Emphysema type: unspecified Qualified Code: J43.9 - Pulmonary emphysema, unspecified emphysema type (5) Essential hypertension Status: Chronic Comment: Adequate control (6) Hepatitis C antibody positive in blood Status: Chronic Comment: This patient will need to be treated as an outpatient (7) Hyperuricemia Status: Chronic Comment: Stable (8) Coronary artery disease Status: Chronic Comment: Quiescent fortunately Qualifiers: Coronary Disease-Associated Artery/Lesion type: iliamna artery [place] vs. transplanted heart: iliamna heart Associated angina: without angina Qualified Code: I25.10 - Coronary artery disease involving iliamna coronary artery of iliamna heart without angina pectoris Consultation Date/Type/Reason Admit Date/Time Apr 24, 2017 at 19:05 Initial Consult Date 04/27/17 Type of Consultation: Endocrinology Reason for Consultation Diabetes with end-stage renal disease on dialysis; peripheral neuropathy; decreased vision/retinopathy; recurrent anemia without GI bleed Referring Provider: NANY PRIEST NP 24 HR Interval Summary Free Text/Dictation No changes Constitutional: no complaints Detailed Summary Endocrine: no complaints Exam/Review of Systems Vital Signs Vitals Vital Signs Date Time Temp Pulse Resp B/P Pulse Ox O2 Delivery O2 Flow Rate FiO2 05/12/17 08:22 58 05/12/17 08:18 18 95 21 05/12/17 07:56 98.0 133/63 05/08/17 17:21 Nasal Cannula 2.0 Intake and Output 05/11/17 05/11/17 05/12/17 15:00 23:00 07:00 Intake Total 700 ml 200 ml Output Total 2 ml 3 ml Balance 698 ml 197 ml Exam Constitutional: alert, oriented Respiratory: clear to auscultation, normal air movement Cardiovascular: nl pulses, regular rate and rhythm Results Result Diagram: 05/11/17 0652 05/12/17 0759 Results 24 hrs Laboratory Tests Test 05/11/17 12:05 05/11/17 17:09 05/11/17 20:55 05/12/17 07:59 Bedside Glucose 147 169 135 White Blood Count Pending Red Blood Count Pending Hemoglobin Pending Hematocrit Pending Mean Corpuscular Volume Pending Mean Corpuscular Hemoglobin Pending Mean Corpuscular Hemoglobin Concent Pending Red Cell Distribution Width Pending Platelet Count Pending Mean Platelet Volume Pending Sodium Level 134 L Potassium Level 4.6 Chloride Level 93 L Carbon Dioxide Level 30 Anion Gap 16 Blood Urea Nitrogen 58 H Creatinine 4.43 H Glucose Level 193 Calcium Level 8.8 Phosphorus Level 4.2 Magnesium Level 2.0 Total Bilirubin 1.3 Direct Bilirubin 0.00 Indirect Bilirubin 1.3 H Aspartate Amino Transf (AST/SGOT) 30 Alanine Aminotransferase (ALT/SGPT) 48 Alkaline Phosphatase 59 Lactate Dehydrogenase 1086 H Total Protein 6.1 Albumin 3.1 L Globulin 3.00 Albumin/Globulin Ratio 1.03 Test 05/12/17 08:50 Bedside Glucose 265 H Medications Medications Current Medications Ondansetron HCl (Zofran Tab) 4 mg Q6H PRN PO NAUSEA AND/OR VOMITING; Start at 23:00 Nitroglycerin (Nitroglycerin (Sl Tab) 0.4 Mg) 1 tab Q5M PRN SL CHEST PAIN; Start 04/24/17 at 23:00 Docusate Sodium (Colace) 100 mg Q12H PRN PO CONSTIPATION; Start 04/24/17 at 23 :00 Bisacodyl (Dulcolax) 5 mg DAILY PRN PO CONSTIPATION; Start 04/24/17 at 23:00 Atorvastatin Calcium (Lipitor) 80 mg QHS PO Last administered on 05/11/17 20: 56; Admin Dose 80 MG; Start 04/25/17 at 21:00 Ergocalciferol (Drisdol) 50,000 unit Mo@09 PO Last administered on 05/06/17 09:13; Admin Dose 50,000 UNIT; Start 04/24/17 at 23:00 Ferrous Sulfate (Ferrous Sulfate (Ec)) 325 mg DAILY PO Last administered on 08:51; Admin Dose 325 MG; Start 04/25/17 at 09:00 Multivit/Ca Carb/ B Cmplx/FA/Prenat (Isabel-Brenda) 1 tab DAILY PO Last administered on 05/12/17 08:51; Admin Dose 1 TAB; Start 04/25/17 at 09:00 Pantoprazole (Protonix Tab) 40 mg DAILY@06 PO Last administered on 05/12/17 05:55; Admin Dose 40 MG; Start 04/25/17 at 06:00 Guaifenesin/ Dextromethorphan (Mucinex Dm) 1 tab BID PO Last administered on 08:51; Admin Dose 1 TAB; Start 04/25/17 at 03:15 Diagnostic Test (Pha) (Accu-Chek) 1 ea 02 XX Last administered on 05/12/17 02 :02; Admin Dose 1 EA; Start 04/26/17 at 02:00 Citric Acid/ Sodium Citrate (Bicitra) 30 ml TID PO Last administered on 08:50; Admin Dose 30 ML; Start 04/25/17 at 13:00 Aspirin (Aspirin) 81 mg DAILY PO Last administered on 04/30/17 10:05; Admin Dose 81 MG; Start 04/25/17 at 12:00; Status Future Hold Heparin Sodium (Porcine) (Heparin (5000 Units/0.5 ml)) 5,000 unit BID SC Last administered on 05/08/17 09:02; Admin Dose 5,000 UNIT; Start 04/26/17 at 09:00 ; Status Future Hold Miscellaneous Information 1 ea NOTE XX Last administered on 04/30/17 17:45; Admin Dose 1 EA; Start 04/25/17 at 12:00 Glucose (Glutose) 15 gm Q15M PRN PO DECREASED GLUCOSE; Start 04/25/17 at 12:00 Glucose (Glutose) 22.5 gm Q15M PRN PO DECREASED GLUCOSE; Start 04/25/17 at 12: 00 Dextrose (D50w Syringe) 25 ml Q15M PRN IV DECREASED GLUCOSE Last administered on 05/08/17 16:08; Admin Dose 25 ML; Start 04/25/17 at 12:00 Dextrose (D50w Syringe) 50 ml Q15M PRN IV DECREASED GLUCOSE Last administered on 05/09/17 00:39; Admin Dose 50 ML; Start 04/25/17 at 12:00 Glucagon (Glucagen) 1 mg Q15M PRN IM DECREASED GLUCOSE; Start 04/25/17 at 12: 00 Glucose (Glutose) 15 gm Q15M PRN BUCCAL DECREASED GLUCOSE; Start 04/25/17 at 12:00 Furosemide (Lasix) 20 mg BID IV Last administered on 05/12/17 08:53; Admin Dose 20 MG; Start 04/26/17 at 09:00 Fish Oil (Fish Oil) 2,000 mg BID PO Last administered on 05/12/17 08:51; Admin Dose 2,000 MG; Start 04/27/17 at 21:00 EZETIMIBE (Zetia) 10 mg DAILY PO Last administered on 05/12/17 08:51; Admin Dose 10 MG; Start 04/28/17 at 09:00 Morphine Sulfate (morphine) 2 mg Q4H PRN IV Pain Last administered on 10:24; Admin Dose 2 MG; Start 04/28/17 at 09:00 Linagliptin (Tradjenta) 5 mg DAILY PO Last administered on 05/12/17 08:51; Admin Dose 5 MG; Start 04/28/17 at 12:00 Tiotropium [place] (Spiriva) 1 inh DAILY INH Last administered on 05/12/17 08 :53; Admin Dose 1 INH; Start 04/30/17 at 13:30 Salmeterol Xinafoate/ Fluticasone (Advair 250/50 Diskus) 1 inh BID INH Last administered on 05/12/17 08:53; Admin Dose 1 INH; Start 04/30/17 at 21:00 Amlodipine Besylate (Norvasc) 5 mg BID PO Last administered on 05/12/17 08:52 ; Admin Dose 5 MG; Start 05/03/17 at 21:00 Carvedilol (Coreg) 3.125 mg BID PO Last administered on 05/12/17 08:52; Admin Dose 3.125 MG; Start 05/04/17 at 09:00 Insulin Glargine (Lantus) 22 unit BID SC Last administered on 05/12/17 09:05 ; Admin Dose 22 UNIT; Start 05/09/17 at 21:00 Epoetin Jero (Epogen (Esrd)) 6,000 units TuThSa@17 SC Last administered on 17:12; Admin Dose 6,000 UNITS; Start 05/11/17 at 17:00 MARA GRAYSON MD May 12, 2017 09:53
[2017-05-12 09:57] LABS: PLATELET COUNT 203 10^3/UL (140-415); WHITE BLOOD COUNT 6.1 10^3/ul (4.8-10.8)
--- NOTE | 2017-05-12 09:57 | PN ---
Date/Time of Note Date/Time of Note DATE: 05/12/17 TIME: 09:55 Assessment/Plan VTE Prophylaxis VTE Prophylaxis Intervention: contraindicated Lines/Catheters IV Catheter Type (from [facility]): perm-a-cath Urinary Cath still in place: No Assessment/Plan Chief Complaint/Hosp Course 1. Acute respiratory failure. Hypoxic. Largely resolved. Most probably secondary to underlying fluid overload and COPD exacerbation. Continue HD per nephrology. Continue inhaled bronchodilators. Continue supplemental oxygen. 2. Intermittent Mobitz type I block. Patient asymptomatic. Cardiology following. 3. Acute on chronic congestive heart failure exacerbation. Diastolic dysfunction. Continue hemodialysis as per nephrology. 4. Moderate distal esophagitis. Continue PPI. 5. Pulmonary hypertension. PA systolic pressure 44 mmHg. Continue supplemental oxygen. 6. CAD. Status post PTCA in the past. Aspirin on hold because anemia. 7. Metabolic acidosis. Most probably secondary to worsening renal function. On Bicitra as per nephrology. 8. Dyslipidemia. Continue statins. 9. Diabetes mellitus type 2. Continue sliding scale insulin along with basal insulin and pre-meal insulin. Adjust insulin dosing to obtain optimal blood sugar control. Endocrinology following. 10. Essential hypertension. Continue antihypertensives. 11. DVT of the left popliteal vein. Anticoagulation on hold because of anemia. 12. Acute on chronic chronic kidney disease. The patient being followed by nephrology. The patient was newly started on hemodialysis. 13. Normocytic, normochromic anemia. Status post multiple units of PRBC transfusion. EGDscopy negative for any active bleeding sites. Evidence of hemolysis. 14. Fluids, electrolytes, and nutrition. Carbohydrate controlled, low- cholesterol diet. 15. DVT prophylaxis. Subcutaneous heparin on hold because of worsening anemia. 16. Plan. Continue hemodialysis as per nephrology. Hematology following for evaluation of hemolytic anemia. The patient was seen in collaboration with Dr. Jackson. Problems: Subjective 24 Hr Interval Summary Free Text/Dictation Denies any dyspnea or chest pain. Exam/Review of Systems Vital Signs Vitals Vital Signs Date Time Temp Pulse Resp B/P Pulse Ox O2 Delivery O2 Flow Rate FiO2 05/12/17 08:22 58 05/12/17 08:18 18 95 21 05/12/17 07:56 98.0 133/63 05/08/17 17:21 Nasal Cannula 2.0 Intake and Output 05/11/17 05/11/17 05/12/17 15:00 23:00 07:00 Intake Total 700 ml 200 ml Output Total 2 ml 3 ml Balance 698 ml 197 ml Exam General: Obese 66 year-old male lying in bed in no apparent distress. HEENT: Normocephalic, atraumatic. Eyes: Anicteric sclerae, conjunctivae clear. ENT: Nasal septum midline, oral mucosa moist. Neck supple, JVD noticed. Respiratory: Bilaterally diminished breath sounds. No use of accessory muscles of respiration. Cardiovascular: S1, S2 heard. Regular rate and rhythm. Abdomen: Soft, nontender, and nondistended. Bowel sounds positive in all 4 quadrants. Genitourinary: Deferred. Extremities: No cyanosis. B/L 1+ pedal edema. Peripheral pulses palpable. Neurologic: Cranial nerves II through XII grossly intact. The patient is awake, alert, and oriented. Skin: Normal skin turgor. No skin rashes. Results Result Diagram: 05/11/17 0652 05/12/17 0759 Results 24 hrs Laboratory Tests Test 05/11/17 12:05 05/11/17 17:09 05/11/17 20:55 05/12/17 07:59 Bedside Glucose 147 169 135 White Blood Count Pending Red Blood Count Pending Hemoglobin Pending Hematocrit Pending Mean Corpuscular Volume Pending Mean Corpuscular Hemoglobin Pending Mean Corpuscular Hemoglobin Concent Pending Red Cell Distribution Width Pending Platelet Count Pending Mean Platelet Volume Pending Sodium Level 134 L Potassium Level 4.6 Chloride Level 93 L Carbon Dioxide Level 30 Anion Gap 16 Blood Urea Nitrogen 58 H Creatinine 4.43 H Glucose Level 193 Calcium Level 8.8 Phosphorus Level 4.2 Magnesium Level 2.0 Total Bilirubin 1.3 Direct Bilirubin 0.00 Indirect Bilirubin 1.3 H Aspartate Amino Transf (AST/SGOT) 30 Alanine Aminotransferase (ALT/SGPT) 48 Alkaline Phosphatase 59 Lactate Dehydrogenase 1086 H Total Protein 6.1 Albumin 3.1 L Globulin 3.00 Albumin/Globulin Ratio 1.03 Test 05/12/17 08:50 Bedside Glucose 265 H Medications Medications Current Medications Ondansetron HCl (Zofran Tab) 4 mg Q6H PRN PO NAUSEA AND/OR VOMITING; Start at 23:00 Nitroglycerin (Nitroglycerin (Sl Tab) 0.4 Mg) 1 tab Q5M PRN SL CHEST PAIN; Start 04/24/17 at 23:00 Docusate Sodium (Colace) 100 mg Q12H PRN PO CONSTIPATION; Start 04/24/17 at 23 :00 Bisacodyl (Dulcolax) 5 mg DAILY PRN PO CONSTIPATION; Start 04/24/17 at 23:00 Atorvastatin Calcium (Lipitor) 80 mg QHS PO Last administered on 05/11/17 20: 56; Admin Dose 80 MG; Start 04/25/17 at 21:00 Ergocalciferol (Drisdol) 50,000 unit Mo@09 PO Last administered on 05/06/17 09:13; Admin Dose 50,000 UNIT; Start 04/24/17 at 23:00 Ferrous Sulfate (Ferrous Sulfate (Ec)) 325 mg DAILY PO Last administered on 08:51; Admin Dose 325 MG; Start 04/25/17 at 09:00 Multivit/Ca Carb/ B Cmplx/FA/Prenat (Isabel-Brenda) 1 tab DAILY PO Last administered on 05/12/17 08:51; Admin Dose 1 TAB; Start 04/25/17 at 09:00 Pantoprazole (Protonix Tab) 40 mg DAILY@06 PO Last administered on 05/12/17 05:55; Admin Dose 40 MG; Start 04/25/17 at 06:00 Guaifenesin/ Dextromethorphan (Mucinex Dm) 1 tab BID PO Last administered on 08:51; Admin Dose 1 TAB; Start 04/25/17 at 03:15 Diagnostic Test (Pha) (Accu-Chek) 1 ea 02 XX Last administered on 05/12/17 02 :02; Admin Dose 1 EA; Start 04/26/17 at 02:00 Citric Acid/ Sodium Citrate (Bicitra) 30 ml TID PO Last administered on 08:50; Admin Dose 30 ML; Start 04/25/17 at 13:00 Aspirin (Aspirin) 81 mg DAILY PO Last administered on 04/30/17 10:05; Admin Dose 81 MG; Start 04/25/17 at 12:00; Status Future Hold Heparin Sodium (Porcine) (Heparin (5000 Units/0.5 ml)) 5,000 unit BID SC Last administered on 05/08/17 09:02; Admin Dose 5,000 UNIT; Start 04/26/17 at 09:00 ; Status Future Hold Miscellaneous Information 1 ea NOTE XX Last administered on 04/30/17 17:45; Admin Dose 1 EA; Start 04/25/17 at 12:00 Glucose (Glutose) 15 gm Q15M PRN PO DECREASED GLUCOSE; Start 04/25/17 at 12:00 Glucose (Glutose) 22.5 gm Q15M PRN PO DECREASED GLUCOSE; Start 04/25/17 at 12: 00 Dextrose (D50w Syringe) 25 ml Q15M PRN IV DECREASED GLUCOSE Last administered on 05/08/17 16:08; Admin Dose 25 ML; Start 04/25/17 at 12:00 Dextrose (D50w Syringe) 50 ml Q15M PRN IV DECREASED GLUCOSE Last administered on 05/09/17 00:39; Admin Dose 50 ML; Start 04/25/17 at 12:00 Glucagon (Glucagen) 1 mg Q15M PRN IM DECREASED GLUCOSE; Start 04/25/17 at 12: 00 Glucose (Glutose) 15 gm Q15M PRN BUCCAL DECREASED GLUCOSE; Start 04/25/17 at 12:00 Furosemide (Lasix) 20 mg BID IV Last administered on 05/12/17 08:53; Admin Dose 20 MG; Start 04/26/17 at 09:00 Fish Oil (Fish Oil) 2,000 mg BID PO Last administered on 05/12/17 08:51; Admin Dose 2,000 MG; Start 04/27/17 at 21:00 EZETIMIBE (Zetia) 10 mg DAILY PO Last administered on 05/12/17 08:51; Admin Dose 10 MG; Start 04/28/17 at 09:00 Morphine Sulfate (morphine) 2 mg Q4H PRN IV Pain Last administered on 10:24; Admin Dose 2 MG; Start 04/28/17 at 09:00 Linagliptin (Tradjenta) 5 mg DAILY PO Last administered on 05/12/17 08:51; Admin Dose 5 MG; Start 04/28/17 at 12:00 Tiotropium [place] (Spiriva) 1 inh DAILY INH Last administered on 05/12/17 08 :53; Admin Dose 1 INH; Start 04/30/17 at 13:30 Salmeterol Xinafoate/ Fluticasone (Advair 250/50 Diskus) 1 inh BID INH Last administered on 05/12/17 08:53; Admin Dose 1 INH; Start 04/30/17 at 21:00 Amlodipine Besylate (Norvasc) 5 mg BID PO Last administered on 05/12/17 08:52 ; Admin Dose 5 MG; Start 05/03/17 at 21:00 Carvedilol (Coreg) 3.125 mg BID PO Last administered on 05/12/17 08:52; Admin Dose 3.125 MG; Start 05/04/17 at 09:00 Epoetin Jero (Epogen (Esrd)) 6,000 units TuThSa@17 SC Last administered on 17:12; Admin Dose 6,000 UNITS; Start 05/11/17 at 17:00 Insulin Glargine (Lantus) 25 unit BID SC ; Start 05/12/17 at 21:00 NANY PRIEST NP May 12, 2017 09:57
[2017-05-12 10:00] LABS: HEMOGLOBIN 8.1 g/dl (14.0-18.0)
--- NOTE | 2017-05-12 10:28 | CONS ---
Date/Time of Note Date/Time of Note DATE: 05/12/17 TIME: 10:27 Consultation Date/Type/Reason Admit Date/Time Apr 24, 2017 at 19:05 Initial Consult Date 05/10/17 Type of Consultation: Endocrinology Reason for Consultation Volume overload Acute kidney injury with history of CKD, started on hemodialysis Acute decompensated diastolic congestive heart failure Diabetes CAD with history of PCI over 10 years ago Hypertension Dyslipidemia History of DVT, previously on anticoagulation Acute blood loss anemia status post blood transfusion Intermittent Mobitz type I, asymptomatic - Aspirin and anticoagulation have been stopped secondary to recurrent anemia requiring blood transfusion. Patient undergoing workup by hematology. Fluid management via hemodialysis as per our nephrology colleagues. Blood pressure trend overall stable. Continue statin therapy. -continued ferquent PAC's with block Referring Provider: NANY PRIEST SAMPLE SELECTOR 24 HR Interval Summary Subjective hx not possible: other (comfortable) Exam/Review of Systems Vital Signs Vitals Vital Signs Date Time Temp Pulse Resp B/P Pulse Ox O2 Delivery O2 Flow Rate FiO2 05/12/17 08:22 58 05/12/17 08:18 18 95 21 05/12/17 07:56 98.0 133/63 05/08/17 17:21 Nasal Cannula 2.0 Intake and Output 05/11/17 05/11/17 05/12/17 15:00 23:00 07:00 Intake Total 700 ml 200 ml Output Total 2 ml 3 ml Balance 698 ml 197 ml Exam Constitutional: alert, oriented Respiratory: clear to auscultation Cardiovascular: regular rate and rhythm Results Result Diagram: 05/12/17 0759 05/12/17 0759 Results 24 hrs Laboratory Tests Test 05/11/17 12:05 05/11/17 17:09 05/11/17 20:55 05/12/17 07:59 Bedside Glucose 147 169 135 White Blood Count 6.1 # Red Blood Count 2.55 L Hemoglobin 8.1 L Hematocrit 24.1 L Mean Corpuscular Volume 94.5 Mean Corpuscular Hemoglobin 31.8 Mean Corpuscular Hemoglobin Concent 33.6 Red Cell Distribution Width 17.9 H Platelet Count 203 Mean Platelet Volume 12.4 H Neutrophils % 67.3 Lymphocytes % 21.3 Monocytes % 7.8 Eosinophils % 2.7 Basophils % 0.5 Nucleated Red Blood Cells % 0.0 Neutrophils # 5.5 Lymphocytes # 1.7 Monocytes # 0.6 Eosinophils # 0.2 Basophils # 0.0 Nucleated Red Blood Cells # 0.0 Sodium Level 134 L Potassium Level 4.6 Chloride Level 93 L Carbon Dioxide Level 30 Anion Gap 16 Blood Urea Nitrogen 58 H Creatinine 4.43 H Glucose Level 193 Calcium Level 8.8 Phosphorus Level 4.2 Magnesium Level 2.0 Total Bilirubin 1.3 Direct Bilirubin 0.00 Indirect Bilirubin 1.3 H Aspartate Amino Transf (AST/SGOT) 30 Alanine Aminotransferase (ALT/SGPT) 48 Alkaline Phosphatase 59 Lactate Dehydrogenase 1086 H Total Protein 6.1 Albumin 3.1 L Globulin 3.00 Albumin/Globulin Ratio 1.03 Test 05/12/17 08:50 Bedside Glucose 265 H Medications Medications Current Medications Ondansetron HCl (Zofran Tab) 4 mg Q6H PRN PO NAUSEA AND/OR VOMITING; Start at 23:00 Nitroglycerin (Nitroglycerin (Sl Tab) 0.4 Mg) 1 tab Q5M PRN SL CHEST PAIN; Start 04/24/17 at 23:00 Docusate Sodium (Colace) 100 mg Q12H PRN PO CONSTIPATION; Start 04/24/17 at 23 :00 Bisacodyl (Dulcolax) 5 mg DAILY PRN PO CONSTIPATION; Start 04/24/17 at 23:00 Atorvastatin Calcium (Lipitor) 80 mg QHS PO Last administered on 05/11/17 20: 56; Admin Dose 80 MG; Start 04/25/17 at 21:00 Ergocalciferol (Drisdol) 50,000 unit Mo@09 PO Last administered on 05/06/17 09:13; Admin Dose 50,000 UNIT; Start 04/24/17 at 23:00 Ferrous Sulfate (Ferrous Sulfate (Ec)) 325 mg DAILY PO Last administered on 08:51; Admin Dose 325 MG; Start 04/25/17 at 09:00 Multivit/Ca Carb/ B Cmplx/FA/Prenat (Isabel-Brenda) 1 tab DAILY PO Last administered on 05/12/17 08:51; Admin Dose 1 TAB; Start 04/25/17 at 09:00 Pantoprazole (Protonix Tab) 40 mg DAILY@06 PO Last administered on 05/12/17 05:55; Admin Dose 40 MG; Start 04/25/17 at 06:00 Guaifenesin/ Dextromethorphan (Mucinex Dm) 1 tab BID PO Last administered on 08:51; Admin Dose 1 TAB; Start 04/25/17 at 03:15 Diagnostic Test (Pha) (Accu-Chek) 1 ea 02 XX Last administered on 05/12/17 02 :02; Admin Dose 1 EA; Start 04/26/17 at 02:00 Citric Acid/ Sodium Citrate (Bicitra) 30 ml TID PO Last administered on 08:50; Admin Dose 30 ML; Start 04/25/17 at 13:00 Aspirin (Aspirin) 81 mg DAILY PO Last administered on 04/30/17 10:05; Admin Dose 81 MG; Start 04/25/17 at 12:00; Status Future Hold Heparin Sodium (Porcine) (Heparin (5000 Units/0.5 ml)) 5,000 unit BID SC Last administered on 05/08/17 09:02; Admin Dose 5,000 UNIT; Start 04/26/17 at 09:00 ; Status Future Hold Miscellaneous Information 1 ea NOTE XX Last administered on 04/30/17 17:45; Admin Dose 1 EA; Start 04/25/17 at 12:00 Glucose (Glutose) 15 gm Q15M PRN PO DECREASED GLUCOSE; Start 04/25/17 at 12:00 Glucose (Glutose) 22.5 gm Q15M PRN PO DECREASED GLUCOSE; Start 04/25/17 at 12: 00 Dextrose (D50w Syringe) 25 ml Q15M PRN IV DECREASED GLUCOSE Last administered on 05/08/17 16:08; Admin Dose 25 ML; Start 04/25/17 at 12:00 Dextrose (D50w Syringe) 50 ml Q15M PRN IV DECREASED GLUCOSE Last administered on 05/09/17 00:39; Admin Dose 50 ML; Start 04/25/17 at 12:00 Glucagon (Glucagen) 1 mg Q15M PRN IM DECREASED GLUCOSE; Start 04/25/17 at 12: 00 Glucose (Glutose) 15 gm Q15M PRN BUCCAL DECREASED GLUCOSE; Start 04/25/17 at 12:00 Furosemide (Lasix) 20 mg BID IV Last administered on 05/12/17 08:53; Admin Dose 20 MG; Start 04/26/17 at 09:00 Fish Oil (Fish Oil) 2,000 mg BID PO Last administered on 05/12/17 08:51; Admin Dose 2,000 MG; Start 04/27/17 at 21:00 EZETIMIBE (Zetia) 10 mg DAILY PO Last administered on 05/12/17 08:51; Admin Dose 10 MG; Start 04/28/17 at 09:00 Morphine Sulfate (morphine) 2 mg Q4H PRN IV Pain Last administered on 10:24; Admin Dose 2 MG; Start 04/28/17 at 09:00 Linagliptin (Tradjenta) 5 mg DAILY PO Last administered on 05/12/17 08:51; Admin Dose 5 MG; Start 04/28/17 at 12:00 Tiotropium [place] (Spiriva) 1 inh DAILY INH Last administered on 05/12/17 08 :53; Admin Dose 1 INH; Start 04/30/17 at 13:30 Salmeterol Xinafoate/ Fluticasone (Advair 250/50 Diskus) 1 inh BID INH Last administered on 05/12/17 08:53; Admin Dose 1 INH; Start 04/30/17 at 21:00 Amlodipine Besylate (Norvasc) 5 mg BID PO Last administered on 05/12/17 08:52 ; Admin Dose 5 MG; Start 05/03/17 at 21:00 Carvedilol (Coreg) 3.125 mg BID PO Last administered on 05/12/17 08:52; Admin Dose 3.125 MG; Start 05/04/17 at 09:00 Epoetin Jero (Epogen (Esrd)) 6,000 units TuThSa@17 SC Last administered on 17:12; Admin Dose 6,000 UNITS; Start 05/11/17 at 17:00 Insulin Glargine (Lantus) 25 unit BID SC ; Start 05/12/17 at 21:00 JAIDEN HARRELL MD May 12, 2017 10:28
[2017-05-12 12:54] LABS: RETICULOCYTE COUNT % 6.9 % (0.5-1.5)
--- NOTE | 2017-05-12 14:05 | CONS ---
Date/Time of Note Date/Time of Note DATE: 05/12/17 TIME: 14:04 Assessment/Plan Assessment/Plan Additional Assessment/Plan 1. 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 H/o CKD due to diabetic nehropathy as per pt was stage IV/V with eGFR 15 as outpatient 3. Acute hyperkalemia due to TROY on CKD - resolved after pt gets started on HD 4. Metabolic acidosis due to worsenign renal failure 5. H/ CAD S/p previous coronary angiogram as per patient 6. Hypertension 7. Type II DM 8. Hyperlipidemia 9. Acute NSETMI due to CHF 10. severe anemia despite getting PRBC, concerned abotu GI bleeding, Plan : hepatitis C antibody positive, Hepatitis A antibody positive EGD showed distal esophagitis, s/p Hd on Saturday- 3 L removed, will keep pt on MWF schedule - HD orderd for tomorrow Hb 8.1- on Epogen 6000 units TIW for anemia HD placement confirmed at [facility] - [facility] [place] is MWF will follow up Consultation Date/Type/Reason Admit Date/Time Apr 24, 2017 at 19:05 Initial Consult Date 04/25/17 Type of Consultation: NEPHROLOGY Referring Provider: NANY PRIEST NP 24 HR Interval Summary Free Text/Dictation Hb 8.1, plan for HD tomorrow Exam/Review of Systems Vital Signs Vitals Vital Signs Date Time Temp Pulse Resp B/P Pulse Ox O2 Delivery O2 Flow Rate FiO2 05/12/17 13:45 72 18 96 21 05/12/17 11:49 98.0 113/57 05/08/17 17:21 Nasal Cannula 2.0 Intake and Output 05/11/17 05/11/17 05/12/17 15:00 23:00 07:00 Intake Total 700 ml 200 ml Output Total 2 ml 3 ml Balance 698 ml 197 ml Results Result Diagram: 05/12/17 0759 05/12/17 0759 Results 24 hrs Laboratory Tests Test 05/11/17 17:09 05/11/17 20:55 05/12/17 07:59 05/12/17 08:50 Bedside Glucose 169 135 265 H White Blood Count 6.1 # Red Blood Count 2.55 L Hemoglobin 8.1 L Hematocrit 24.1 L Mean Corpuscular Volume 94.5 Mean Corpuscular Hemoglobin 31.8 Mean Corpuscular Hemoglobin Concent 33.6 Red Cell Distribution Width 17.9 H Platelet Count 203 Mean Platelet Volume 12.4 H Neutrophils % 67.3 Lymphocytes % 21.3 Monocytes % 7.8 Eosinophils % 2.7 Basophils % 0.5 Nucleated Red Blood Cells % 0.0 Neutrophils # 5.5 Lymphocytes # 1.7 Monocytes # 0.6 Eosinophils # 0.2 Basophils # 0.0 Nucleated Red Blood Cells # 0.0 Sodium Level 134 L Potassium Level 4.6 Chloride Level 93 L Carbon Dioxide Level 30 Anion Gap 16 Blood Urea Nitrogen 58 H Creatinine 4.43 H Glucose Level 193 Calcium Level 8.8 Phosphorus Level 4.2 Magnesium Level 2.0 Total Bilirubin 1.3 Direct Bilirubin 0.00 Indirect Bilirubin 1.3 H Aspartate Amino Transf (AST/SGOT) 30 Alanine Aminotransferase (ALT/SGPT) 48 Alkaline Phosphatase 59 Lactate Dehydrogenase 1086 H Total Protein 6.1 Albumin 3.1 L Globulin 3.00 Albumin/Globulin Ratio 1.03 Test 05/12/17 11:13 05/12/17 12:35 Absolute Reticulocyte Count 0.185 H Percent Reticulocyte Count 6.9 H Bedside Glucose 314 H Medications Medications Current Medications Ondansetron HCl (Zofran Tab) 4 mg Q6H PRN PO NAUSEA AND/OR VOMITING; Start at 23:00 Nitroglycerin (Nitroglycerin (Sl Tab) 0.4 Mg) 1 tab Q5M PRN SL CHEST PAIN; Start 04/24/17 at 23:00 Docusate Sodium (Colace) 100 mg Q12H PRN PO CONSTIPATION; Start 04/24/17 at 23 :00 Bisacodyl (Dulcolax) 5 mg DAILY PRN PO CONSTIPATION; Start 04/24/17 at 23:00 Atorvastatin Calcium (Lipitor) 80 mg QHS PO Last administered on 05/11/17 20: 56; Admin Dose 80 MG; Start 04/25/17 at 21:00 Ergocalciferol (Drisdol) 50,000 unit Mo@09 PO Last administered on 05/06/17 09:13; Admin Dose 50,000 UNIT; Start 04/24/17 at 23:00 Ferrous Sulfate (Ferrous Sulfate (Ec)) 325 mg DAILY PO Last administered on 08:51; Admin Dose 325 MG; Start 04/25/17 at 09:00 Multivit/Ca Carb/ B Cmplx/FA/Prenat (Isabel-Brenda) 1 tab DAILY PO Last administered on 05/12/17 08:51; Admin Dose 1 TAB; Start 04/25/17 at 09:00 Pantoprazole (Protonix Tab) 40 mg DAILY@06 PO Last administered on 05/12/17 05:55; Admin Dose 40 MG; Start 04/25/17 at 06:00 Guaifenesin/ Dextromethorphan (Mucinex Dm) 1 tab BID PO Last administered on 08:51; Admin Dose 1 TAB; Start 04/25/17 at 03:15 Diagnostic Test (Pha) (Accu-Chek) 1 ea 02 XX Last administered on 05/12/17 02 :02; Admin Dose 1 EA; Start 04/26/17 at 02:00 Citric Acid/ Sodium Citrate (Bicitra) 30 ml TID PO Last administered on 12:45; Admin Dose 30 ML; Start 04/25/17 at 13:00 Aspirin (Aspirin) 81 mg DAILY PO Last administered on 04/30/17 10:05; Admin Dose 81 MG; Start 04/25/17 at 12:00; Status Future Hold Heparin Sodium (Porcine) (Heparin (5000 Units/0.5 ml)) 5,000 unit BID SC Last administered on 05/08/17 09:02; Admin Dose 5,000 UNIT; Start 04/26/17 at 09:00 ; Status Future Hold Miscellaneous Information 1 ea NOTE XX Last administered on 04/30/17 17:45; Admin Dose 1 EA; Start 04/25/17 at 12:00 Glucose (Glutose) 15 gm Q15M PRN PO DECREASED GLUCOSE; Start 04/25/17 at 12:00 Glucose (Glutose) 22.5 gm Q15M PRN PO DECREASED GLUCOSE; Start 04/25/17 at 12: 00 Dextrose (D50w Syringe) 25 ml Q15M PRN IV DECREASED GLUCOSE Last administered on 05/08/17 16:08; Admin Dose 25 ML; Start 04/25/17 at 12:00 Dextrose (D50w Syringe) 50 ml Q15M PRN IV DECREASED GLUCOSE Last administered on 05/09/17 00:39; Admin Dose 50 ML; Start 04/25/17 at 12:00 Glucagon (Glucagen) 1 mg Q15M PRN IM DECREASED GLUCOSE; Start 04/25/17 at 12: 00 Glucose (Glutose) 15 gm Q15M PRN BUCCAL DECREASED GLUCOSE; Start 04/25/17 at 12:00 Furosemide (Lasix) 20 mg BID IV Last administered on 05/12/17 08:53; Admin Dose 20 MG; Start 04/26/17 at 09:00 Fish Oil (Fish Oil) 2,000 mg BID PO Last administered on 05/12/17 08:51; Admin Dose 2,000 MG; Start 04/27/17 at 21:00 EZETIMIBE (Zetia) 10 mg DAILY PO Last administered on 05/12/17 08:51; Admin Dose 10 MG; Start 04/28/17 at 09:00 Morphine Sulfate (morphine) 2 mg Q4H PRN IV Pain Last administered on 10:24; Admin Dose 2 MG; Start 04/28/17 at 09:00 Linagliptin (Tradjenta) 5 mg DAILY PO Last administered on 05/12/17 08:51; Admin Dose 5 MG; Start 04/28/17 at 12:00 Tiotropium [place] (Spiriva) 1 inh DAILY INH Last administered on 05/12/17 08 :53; Admin Dose 1 INH; Start 04/30/17 at 13:30 Salmeterol Xinafoate/ Fluticasone (Advair 250/50 Diskus) 1 inh BID INH Last administered on 05/12/17 08:53; Admin Dose 1 INH; Start 04/30/17 at 21:00 Amlodipine Besylate (Norvasc) 5 mg BID PO Last administered on 05/12/17 08:52 ; Admin Dose 5 MG; Start 05/03/17 at 21:00 Carvedilol (Coreg) 3.125 mg BID PO Last administered on 05/12/17 08:52; Admin Dose 3.125 MG; Start 05/04/17 at 09:00 Epoetin Jero (Epogen (Esrd)) 6,000 units TuThSa@17 SC Last administered on t 17:12; Admin Dose 6,000 UNITS; Start 05/11/17 at 17:00 Insulin Glargine (Lantus) 25 unit BID SC ; Start 05/12/17 at 21:00 RAQUEL MCDOWELL MD May 12, 2017 14:05
[2017-05-12] MEDS: ATORVASTATIN 80 MG TAB PO SCH (20:31)
[2017-05-13] VITALS (21 sets, daily range): BP systolic 105–151; BP diastolic 57–75; PULSE 41–79; RESP 16–20
[2017-05-13] MEDS: ALBUTEROL/IPRATROPIUM (NEB) 3 ML AMP HHN SCH ×6 (00:53→20:42)
[2017-05-13] MEDS: ACCU-CHEK XX SCH (02:15)
[2017-05-13] MEDS: PANTOPRAZOLE (EC) 40 MG TAB PO SCH (06:08)
[2017-05-13 07:52] LABS: ABNORMAL IP MESSAGE 1; BASOPHILS % 0.7 % (0.0-2.0); EOSINOPHILS # 0.2 10^3/ul (0.0-0.5); EOSINOPHILS % 3.5 % (0.0-7.0); LYMPHOCYTES # 1.4 10^3/ul (0.8-2.9); LYMPHOCYTES % 23.3 % (15.0-51.0); MEAN PLATELET VOLUME 12.6 fl (7.4-10.4); MONOCYTE # 0.5 10^3/ul (0.3-0.9); MONOCYTES % 8.5 % (0.0-11.0); NEUTROPHIL # 3.8 10^3/ul (1.6-7.5); NEUTROPHILS % 63.8 % (39.0-77.0); PLATELET COUNT 184 10^3/UL (140-415); POSITIVE DIFF @See below
[2017-05-13 08:20] LABS: ALBUMIN/GLOBULIN RATIO 0.9; CALCIUM 9.1 mg/dl (8.4-10.2); CREATININE 4.97 mg/dl (0.61-1.24); POTASSIUM 4.4 mmol/L (3.5-5.1); TOTAL PROTEIN 6.3 g/dl (6.1-8.1)
[2017-05-13 08:21] LABS: PHOSPHORUS 4.7 mg/dl (2.5-4.9)
--- NOTE | 2017-05-13 08:33 | CONS ---
Date/Time of Note Date/Time of Note DATE: 05/13/17 TIME: 08:31 Assessment/Plan Assessment/Plan Chief Complaint/Hosp Course Volume overload Acute kidney injury with history of CKD, started on hemodialysis Acute decompensated diastolic congestive heart failure Diabetes CAD with history of PCI over 10 years ago Hypertension Dyslipidemia History of DVT, previously on anticoagulation Acute blood loss anemia status post blood transfusion Intermittent Mobitz type I, asymptomatic Problems: Additional Assessment/Plan 1) HD per renal 2) Off antiplatelet therapy given marked anemia 3) Fluid status improving Consultation Date/Type/Reason Admit Date/Time Apr 24, 2017 at 19:05 Initial Consult Date 05/01/17 Type of Consultation: cv Referring Provider: NANY PRIEST NP 24 HR Interval Summary Free Text/Dictation no chest pain, no sob, no palpitations, currently on HD Detailed Summary Respiratory: no complaints Cardiovascular: no complaints Gastrointestinal: no complaints Musculoskeletal: no complaints Skin: no complaints Neurologic: no complaints Exam/Review of Systems Vital Signs Vitals Vital Signs Date Time Temp Pulse Resp B/P Pulse Ox O2 Delivery O2 Flow Rate FiO2 05/13/17 08:07 78 05/13/17 08:05 98.0 20 138/65 98 05/12/17 21:03 21 Intake and Output 05/12/17 05/12/17 05/13/17 15:00 23:00 07:00 Intake Total 700 ml 100 ml Balance 700 ml 100 ml Exam Constitutional: alert, oriented Head: atraumatic, normocephalic Neck: supple Respiratory: clear to auscultation Cardiovascular: regular rate and rhythm Gastrointestinal: soft Musculoskeletal: nl extremities to inspection Extremities: normal pulses Results Result Diagram: 05/12/17 0759 05/12/17 0759 Results 24 hrs Laboratory Tests Test 05/12/17 08:50 05/12/17 11:13 05/12/17 12:35 05/12/17 17:35 Bedside Glucose 265 H 314 H 119 Absolute Reticulocyte Count 0.185 H Percent Reticulocyte Count 6.9 H Test 05/12/17 20:29 05/13/17 06:27 Bedside Glucose 125 White Blood Count Pending Red Blood Count Pending Hemoglobin Pending Hematocrit Pending Mean Corpuscular Volume Pending Mean Corpuscular Hemoglobin Pending Mean Corpuscular Hemoglobin Concent Pending Red Cell Distribution Width Pending Platelet Count Pending Mean Platelet Volume Pending Phosphorus Level 4.7 Magnesium Level 2.0 Medications Medications Current Medications Ondansetron HCl (Zofran Tab) 4 mg Q6H PRN PO NAUSEA AND/OR VOMITING; Start at 23:00 Nitroglycerin (Nitroglycerin (Sl Tab) 0.4 Mg) 1 tab Q5M PRN SL CHEST PAIN; Start 04/24/17 at 23:00 Docusate Sodium (Colace) 100 mg Q12H PRN PO CONSTIPATION; Start 04/24/17 at 23 :00 Bisacodyl (Dulcolax) 5 mg DAILY PRN PO CONSTIPATION; Start 04/24/17 at 23:00 Atorvastatin Calcium (Lipitor) 80 mg QHS PO Last administered on 05/12/17 20: 31; Admin Dose 80 MG; Start 04/25/17 at 21:00 Ergocalciferol (Drisdol) 50,000 unit Mo@09 PO Last administered on 05/06/17 09:13; Admin Dose 50,000 UNIT; Start 04/24/17 at 23:00 Ferrous Sulfate (Ferrous Sulfate (Ec)) 325 mg DAILY PO Last administered on 08:51; Admin Dose 325 MG; Start 04/25/17 at 09:00 Multivit/Ca Carb/ B Cmplx/FA/Prenat (Isabel-Brenda) 1 tab DAILY PO Last administered on 05/12/17 08:51; Admin Dose 1 TAB; Start 04/25/17 at 09:00 Pantoprazole (Protonix Tab) 40 mg DAILY@06 PO Last administered on 05/13/17 06:08; Admin Dose 40 MG; Start 04/25/17 at 06:00 Guaifenesin/ Dextromethorphan (Mucinex Dm) 1 tab BID PO Last administered on 20:31; Admin Dose 1 TAB; Start 04/25/17 at 03:15 Diagnostic Test (Pha) (Accu-Chek) 1 ea 02 XX Last administered on 05/13/17 02 :15; Admin Dose 1 EA; Start 04/26/17 at 02:00 Citric Acid/ Sodium Citrate (Bicitra) 30 ml TID PO Last administered on 20:31; Admin Dose 30 ML; Start 04/25/17 at 13:00 Aspirin (Aspirin) 81 mg DAILY PO Last administered on 04/30/17 10:05; Admin Dose 81 MG; Start 04/25/17 at 12:00; Status Future Hold Heparin Sodium (Porcine) (Heparin (5000 Units/0.5 ml)) 5,000 unit BID SC Last administered on 05/08/17 09:02; Admin Dose 5,000 UNIT; Start 04/26/17 at 09:00 ; Status Future Hold Miscellaneous Information 1 ea NOTE XX Last administered on 04/30/17 17:45; Admin Dose 1 EA; Start 04/25/17 at 12:00 Glucose (Glutose) 15 gm Q15M PRN PO DECREASED GLUCOSE; Start 04/25/17 at 12:00 Glucose (Glutose) 22.5 gm Q15M PRN PO DECREASED GLUCOSE; Start 04/25/17 at 12: 00 Dextrose (D50w Syringe) 25 ml Q15M PRN IV DECREASED GLUCOSE Last administered on 05/08/17 16:08; Admin Dose 25 ML; Start 04/25/17 at 12:00 Dextrose (D50w Syringe) 50 ml Q15M PRN IV DECREASED GLUCOSE Last administered on 05/09/17 00:39; Admin Dose 50 ML; Start 04/25/17 at 12:00 Glucagon (Glucagen) 1 mg Q15M PRN IM DECREASED GLUCOSE; Start 04/25/17 at 12: 00 Glucose (Glutose) 15 gm Q15M PRN BUCCAL DECREASED GLUCOSE; Start 04/25/17 at 12:00 Furosemide (Lasix) 20 mg BID IV Last administered on 05/12/17 20:32; Admin Dose 20 MG; Start 04/26/17 at 09:00 Fish Oil (Fish Oil) 2,000 mg BID PO Last administered on 05/12/17 20:31; Admin Dose 2,000 MG; Start 04/27/17 at 21:00 EZETIMIBE (Zetia) 10 mg DAILY PO Last administered on 05/12/17 08:51; Admin Dose 10 MG; Start 04/28/17 at 09:00 Morphine Sulfate (morphine) 2 mg Q4H PRN IV Pain Last administered on 10:24; Admin Dose 2 MG; Start 04/28/17 at 09:00 Linagliptin (Tradjenta) 5 mg DAILY PO Last administered on 05/12/17 08:51; Admin Dose 5 MG; Start 04/28/17 at 12:00 Tiotropium [place] (Spiriva) 1 inh DAILY INH Last administered on 05/12/17 08 :53; Admin Dose 1 INH; Start 04/30/17 at 13:30 Salmeterol Xinafoate/ Fluticasone (Advair 250/50 Diskus) 1 inh BID INH Last administered on 05/12/17 20:28; Admin Dose 1 INH; Start 04/30/17 at 21:00 Amlodipine Besylate (Norvasc) 5 mg BID PO Last administered on 05/12/17 20:32 ; Admin Dose 5 MG; Start 05/03/17 at 21:00 Carvedilol (Coreg) 3.125 mg BID PO Last administered on 05/12/17 20:32; Admin Dose 3.125 MG; Start 05/04/17 at 09:00 Epoetin Jero (Epogen (Esrd)) 6,000 units TuThSa@17 SC Last administered on 17:12; Admin Dose 6,000 UNITS; Start 05/11/17 at 17:00 Insulin Glargine (Lantus) 25 unit BID SC ; Start 05/12/17 at 21:00 AUDI BRADFORD MD May 13, 2017 08:33
[2017-05-13] MEDS: SALMETEROL/FLUTICASONE 250/50 INHA INH SCH ×2 (09:38→21:05)
[2017-05-13] MEDS: CITRIC ACID/SODIUM CITRATE 15 ML CUP PO SCH ×3 (09:39→21:06)
[2017-05-13] MEDS: FUROSEMIDE 20 MG INJ IV SCH ×2 (09:39→21:08)
[2017-05-13] MEDS: ERGOCALCIFEROL 50,000 UNIT CAP PO SCH (09:40)
[2017-05-13] MEDS: EZETIMIBE 10 MG TAB PO SCH (09:40)
[2017-05-13] MEDS: MULTIVIT/CA CARB/B CMPLX/FA TAB PO SCH (09:40)
[2017-05-13] MEDS: TIOTROPIUM 18 MCG CAPSULE INHA DEV INH SCH (09:40)
[2017-05-13] MEDS: FISH OIL 1,000 MG CAP PO SCH ×2 (09:41→21:06)
[2017-05-13] MEDS: FERROUS SULFATE (EC) 325 MG TAB PO SCH (09:41)
[2017-05-13] MEDS: GUAIFENESIN/DM (SR) TAB PO SCH ×2 (09:41→21:06)
[2017-05-13] MEDS: LINAGLIPTIN 5 MG TABLET PO SCH (09:42)
[2017-05-13] MEDS: INSULIN ASPART [NOVOLOG] 3 ML PEN SC SCH ×7 (10:06→21:00)
[2017-05-13] MEDS: INSULIN GLARGINE [LANtus] 3 ML PEN SC SCH ×2 (10:06→21:00)
[2017-05-13 10:57] LABS: HEMATOCRIT 23.6 % (42.0-52.0); MEAN CORPUSCULAR VOLUME 99.2 fl (82.0-101.0); RED BLOOD COUNT 2.38 10^6/ul (4.70-6.10)
[2017-05-13 10:58] LABS: HEMOGLOBIN 7.5 g/dl (14.0-18.0); MEAN CORPUSCULAR HEMOGLOBIN 31.5 pg (29.0-33.0); MEAN CORPUSCULAR HGB CONC 31.8 g/dl (32.0-37.0)
[2017-05-13] MEDS: AMLODIPINE 5 MG TAB PO SCH ×2 (11:49→21:07)
--- NOTE | 2017-05-13 13:55 | CONS ---
Date/Time of Note Date/Time of Note DATE: 05/13/17 TIME: 13:52 Assessment/Plan Assessment/Plan Chief Complaint/Hosp Course Pleasant Litzy gentleman with his family present in the room reporting a 30 year history of diabetes mellitus type 2. He had been on oral agent therapy but as his kidneys declined he was transitioned over to a multiple daily injection regimen using Lantus and NovoLog. He intermittently takes full dose Januvia 100 mg despite his renal dysfunction Problems: (1) Diabetes mellitus type 2 in obese Status: Chronic Comment: With the adjustments in the insulin the patient has acceptable sugar control without being overcontrolled. Continue the same medication regimen. (2) End stage renal disease on dialysis due to type 2 diabetes mellitus Status: Chronic Comment: As per nephrology. (3) Hemolytic anemia Status: Acute Comment: Patient has positive cold agglutinins with a steadily decreasing hemoglobin after multiple units of transfusion and negative GI workup and negative stool for occult blood. 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 This may cause a hemolytic anemia. It may be appropriate to get this treated sooner rather than later (5) Essential hypertension Status: Chronic Comment: Adequate control (6) Coronary artery disease Status: Chronic Comment: Quiescent Qualifiers: Coronary Disease-Associated Artery/Lesion type: [place] artery [place] vs. transplanted heart: [place] heart Associated angina: without angina Qualified Code: I25.10 - Coronary artery disease involving [place] coronary artery of [place] heart without angina pectoris (7) COPD (chronic obstructive pulmonary disease) Status: Chronic Comment: Well-controlled on current regimen Qualifiers: COPD type: emphysema Emphysema type: unspecified Qualified Code: J43.9 - Pulmonary emphysema, unspecified emphysema type Consultation Date/Type/Reason Admit Date/Time Apr 24, 2017 at 19:05 Initial Consult Date 04/27/17 Type of Consultation: Endocrinology Reason for Consultation [place] mellitus type I on multiple daily injection regimen with end-stage renal disease complicated by retinopathy and peripheral neuropathy.; Hemolytic anemia Referring Provider: NANY PRIEST NP 24 HR Interval Summary Free Text/Dictation Patient remains somewhat anxious and has still some complaints of pain. Detailed Summary Respiratory: no complaints Cardiovascular: no complaints Exam/Review of Systems Vital Signs Vitals Vital Signs Date Time Temp Pulse Resp B/P Pulse Ox O2 Delivery O2 Flow Rate FiO2 05/13/17 12:26 64 05/13/17 11:49 97.8 20 122/57 95 05/12/17 21:03 21 Intake and Output 05/12/17 05/12/17 05/13/17 15:00 23:00 07:00 Intake Total 700 ml 100 ml Balance 700 ml 100 ml Results No change in exam Result Diagram: 05/13/1727 05/13/17626 Results 24 hrs Laboratory Tests Test 05/12/17 17:35 05/12/17 20:29 05/13/17 06:27 05/13/17 09:31 Bedside Glucose 119 125 197 White Blood Count 6.0 Red Blood Count 2.38 L Hemoglobin 7.5 L Hematocrit 23.6 L Mean Corpuscular Volume 99.2 Mean Corpuscular Hemoglobin 31.5 Mean Corpuscular Hemoglobin Concent 31.8 L Red Cell Distribution Width 18.0 H Platelet Count 184 Mean Platelet Volume 12.6 H Neutrophils % 63.8 Lymphocytes % 23.3 Monocytes % 8.5 Eosinophils % 3.5 Basophils % 0.7 Nucleated Red Blood Cells % 0.0 Neutrophils # 3.8 Lymphocytes # 1.4 Monocytes # 0.5 Eosinophils # 0.2 Basophils # 0.0 Nucleated Red Blood Cells # 0.0 Sodium Level 137 Potassium Level 4.4 Chloride Level 95 L Carbon Dioxide Level 30 Anion Gap 16 Blood Urea Nitrogen 66 H Creatinine 4.97 H Glucose Level 132 # Calcium Level 9.1 Phosphorus Level 4.7 Magnesium Level 2.0 Total Bilirubin 1.0 Direct Bilirubin 0.00 Indirect Bilirubin 1.0 Aspartate Amino Transf (AST/SGOT) 24 Alanine Aminotransferase (ALT/SGPT) 44 Alkaline Phosphatase 56 Total Protein 6.3 Albumin 3.0 L Globulin 3.30 H Albumin/Globulin Ratio 0.90 Test 05/13/17 11:59 Bedside Glucose 194 Medications Medications Current Medications Ondansetron HCl (Zofran Tab) 4 mg Q6H PRN PO NAUSEA AND/OR VOMITING; Start at 23:00 Nitroglycerin (Nitroglycerin (Sl Tab) 0.4 Mg) 1 tab Q5M PRN SL CHEST PAIN; Start 04/24/17 at 23:00 Docusate Sodium (Colace) 100 mg Q12H PRN PO CONSTIPATION; Start 04/24/17 at 23 :00 Bisacodyl (Dulcolax) 5 mg DAILY PRN PO CONSTIPATION; Start 04/24/17 at 23:00 Atorvastatin Calcium (Lipitor) 80 mg QHS PO Last administered on 05/12/17 20: 31; Admin Dose 80 MG; Start 04/25/17 at 21:00 Ergocalciferol (Drisdol) 50,000 unit Mo@09 PO Last administered on 05/13/17 09:40; Admin Dose 50,000 UNIT; Start 04/24/17 at 23:00 Ferrous Sulfate (Ferrous Sulfate (Ec)) 325 mg DAILY PO Last administered on 09:41; Admin Dose 325 MG; Start 04/25/17 at 09:00 Multivit/Ca Carb/ B Cmplx/FA/Prenat (Isabel-Brenda) 1 tab DAILY PO Last administered on 05/13/17 09:40; Admin Dose 1 TAB; Start 04/25/17 at 09:00 Pantoprazole (Protonix Tab) 40 mg DAILY@06 PO Last administered on 05/13/17 06:08; Admin Dose 40 MG; Start 04/25/17 at 06:00 Guaifenesin/ Dextromethorphan (Mucinex Dm) 1 tab BID PO Last administered on 09:41; Admin Dose 1 TAB; Start 04/25/17 at 03:15 Diagnostic Test (Pha) (Accu-Chek) 1 ea 02 XX Last administered on 05/13/17 02 :15; Admin Dose 1 EA; Start 04/26/17 at 02:00 Citric Acid/ Sodium Citrate (Bicitra) 30 ml TID PO Last administered on 11:57; Admin Dose 30 ML; Start 04/25/17 at 13:00 Aspirin (Aspirin) 81 mg DAILY PO Last administered on 04/30/17 10:05; Admin Dose 81 MG; Start 04/25/17 at 12:00; Status Future Hold Heparin Sodium (Porcine) (Heparin (5000 Units/0.5 ml)) 5,000 unit BID SC Last administered on 05/08/17 09:02; Admin Dose 5,000 UNIT; Start 04/26/17 at 09:00 ; Status Future Hold Miscellaneous Information 1 ea NOTE XX Last administered on 04/30/17 17:45; Admin Dose 1 EA; Start 04/25/17 at 12:00 Glucose (Glutose) 15 gm Q15M PRN PO DECREASED GLUCOSE; Start 04/25/17 at 12:00 Glucose (Glutose) 22.5 gm Q15M PRN PO DECREASED GLUCOSE; Start 04/25/17 at 12: 00 Dextrose (D50w Syringe) 25 ml Q15M PRN IV DECREASED GLUCOSE Last administered on 05/08/17 16:08; Admin Dose 25 ML; Start 04/25/17 at 12:00 Dextrose (D50w Syringe) 50 ml Q15M PRN IV DECREASED GLUCOSE Last administered on 05/09/17 00:39; Admin Dose 50 ML; Start 04/25/17 at 12:00 Glucagon (Glucagen) 1 mg Q15M PRN IM DECREASED GLUCOSE; Start 04/25/17 at 12: 00 Glucose (Glutose) 15 gm Q15M PRN BUCCAL DECREASED GLUCOSE; Start 04/25/17 at 12:00 Furosemide (Lasix) 20 mg BID IV Last administered on 05/13/17 09:39; Admin Dose 20 MG; Start 04/26/17 at 09:00 Fish Oil (Fish Oil) 2,000 mg BID PO Last administered on 05/13/17 09:41; Admin Dose 2,000 MG; Start 04/27/17 at 21:00 EZETIMIBE (Zetia) 10 mg DAILY PO Last administered on 05/13/17 09:40; Admin Dose 10 MG; Start 04/28/17 at 09:00 Morphine Sulfate (morphine) 2 mg Q4H PRN IV Pain Last administered on 10:24; Admin Dose 2 MG; Start 04/28/17 at 09:00 Linagliptin (Tradjenta) 5 mg DAILY PO Last administered on 05/13/17 09:42; Admin Dose 5 MG; Start 04/28/17 at 12:00 Tiotropium [place] (Spiriva) 1 inh DAILY INH Last administered on 05/13/17 09 :40; Admin Dose 1 INH; Start 04/30/17 at 13:30 Salmeterol Xinafoate/ Fluticasone (Advair 250/50 Diskus) 1 inh BID INH Last administered on 05/13/17 09:38; Admin Dose 1 INH; Start 04/30/17 at 21:00 Amlodipine Besylate (Norvasc) 5 mg BID PO Last administered on 05/13/17 11:49 ; Admin Dose 5 MG; Start 05/03/17 at 21:00 Carvedilol (Coreg) 3.125 mg BID PO Last administered on 05/13/17 09:42; Admin Dose 3.125 MG; Start 05/04/17 at 09:00 Epoetin Jero (Epogen (Esrd)) 6,000 units TuTa@17 SC Last administered on 17:12; Admin Dose 6,000 UNITS; Start 05/11/17 at 17:00 Insulin Glargine (Lantus) 25 unit BID SC Last administered on 05/13/17 10:06 ; Admin Dose 25 UNIT; Start 05/12/17 at 21:00 MARA GRAYSON MD May 13, 2017 13:55
--- NOTE | 2017-05-13 14:11 | PN ---
Date/Time of Note Date/Time of Note DATE: 05/13/17 TIME: 14:07 Assessment/Plan VTE Prophylaxis VTE Prophylaxis Intervention: contraindicated Lines/Catheters IV [facility] Permacath Urinary Cath still in place: No Assessment/Plan Chief Complaint/Hosp Course Assessment and plan 1. Acute respiratory failure secondary to fluid overload. Improved status post dialysis. monitor for now. O2 as needed. 2. Intermittent Mobitz type I block. A symptomatically present. Supply Chain Specialist following. Monitor on telemetry. 3. Acute on chronic CHF. Noted with diastolic dysfunction. On dialysis. Stable at present. 4. Moderate distal esophagitis. Continue PPI medication. 5. Pulmonary hypertension. Noted with PA systolic pressure of 44 mmHg. Off O2. Tolerating well. Monitor for now. 6. History of CAD. Patient is status post PTCA. Of note aspirin on hold due to current anemia. 7. Dyslipidemia. Continue on statin medication. 8. Metabolic acidosis. Secondary to renal dysfunction. Bicitra per service or work dispatcher chief. 9. Type 2 diabetes. On insulin regimen. Followed by service or work dispatcher chief. Adjust as needed. 10. Essential hypertension. Continue antihypertensives and adjust needed. 11. DVT of the left popliteal vein. Anticoagulation on hold secondary to anemia. 12. Acute on chronic kidney disease. On dialysis now. Monitor I's. 13. Anemia. Labile at present. Material Preparation Worker to follow. Disposition and plan: Monitor serial CBC. With labile anemia. Transfuse blood products as needed. Material Preparation Worker consultation is pending. Discussed plan of care with Dr. Pelayo Problems: Subjective 24 Hr Interval Summary Free Text/Dictation Working with physical therapy. No signs of distress. Appears comfortable at present. Family remains at bedside. 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, nl mental status, nl speech Skin: nl turgor Results Result Diagram: 05/13/1762605/13/17626 Results 24 hrs Laboratory Tests Test 05/12/17 17:35 05/12/17 20:29 05/13/17 06:27 05/13/17 09:31 Bedside Glucose 119 125 197 White Blood Count 6.0 Red Blood Count 2.38 L Hemoglobin 7.5 L Hematocrit 23.6 L Mean Corpuscular Volume 99.2 Mean Corpuscular Hemoglobin 31.5 Mean Corpuscular Hemoglobin Concent 31.8 L Red Cell Distribution Width 18.0 H Platelet Count 184 Mean Platelet Volume 12.6 H Neutrophils % 63.8 Lymphocytes % 23.3 Monocytes % 8.5 Eosinophils % 3.5 Basophils % 0.7 Nucleated Red Blood Cells % 0.0 Neutrophils # 3.8 Lymphocytes # 1.4 Monocytes # 0.5 Eosinophils # 0.2 Basophils # 0.0 Nucleated Red Blood Cells # 0.0 Sodium Level 137 Potassium Level 4.4 Chloride Level 95 L Carbon Dioxide Level 30 Anion Gap 16 Blood Urea Nitrogen 66 H Creatinine 4.97 H Glucose Level 132 # Calcium Level 9.1 Phosphorus Level 4.7 Magnesium Level 2.0 Total Bilirubin 1.0 Direct Bilirubin 0.00 Indirect Bilirubin 1.0 Aspartate Amino Transf (AST/SGOT) 24 Alanine Aminotransferase (ALT/SGPT) 44 Alkaline Phosphatase 56 Total Protein 6.3 Albumin 3.0 L Globulin 3.30 H Albumin/Globulin Ratio 0.90 Test 05/13/17 11:59 Bedside Glucose 194 Medications Medications Current Medications Ondansetron HCl (Zofran Tab) 4 mg Q6H PRN PO NAUSEA AND/OR VOMITING; Start at 23:00 Nitroglycerin (Nitroglycerin (Sl Tab) 0.4 Mg) 1 tab Q5M PRN SL CHEST PAIN; Start 04/24/17 at 23:00 Docusate Sodium (Colace) 100 mg Q12H PRN PO CONSTIPATION; Start 04/24/17 at 23 :00 Bisacodyl (Dulcolax) 5 mg DAILY PRN PO CONSTIPATION; Start 04/24/17 at 23:00 Atorvastatin Calcium (Lipitor) 80 mg QHS PO Last administered on 05/12/17 20: 31; Admin Dose 80 MG; Start 04/25/17 at 21:00 Ergocalciferol (Drisdol) 50,000 unit Mo@09 PO Last administered on 05/13/17 09:40; Admin Dose 50,000 UNIT; Start 04/24/17 at 23:00 Ferrous Sulfate (Ferrous Sulfate (Ec)) 325 mg DAILY PO Last administered on 09:41; Admin Dose 325 MG; Start 04/25/17 at 09:00 Multivit/Ca Carb/ B Cmplx/FA/Prenat (Isabel-Brenda) 1 tab DAILY PO Last administered on 05/13/17 09:40; Admin Dose 1 TAB; Start 04/25/17 at 09:00 Pantoprazole (Protonix Tab) 40 mg DAILY@06 PO Last administered on 05/13/17 06:08; Admin Dose 40 MG; Start 04/25/17 at 06:00 Guaifenesin/ Dextromethorphan (Mucinex Dm) 1 tab BID PO Last administered on 09:41; Admin Dose 1 TAB; Start 04/25/17 at 03:15 Diagnostic Test (Pha) (Accu-Chek) 1 ea 02 XX Last administered on 05/13/17 02 :15; Admin Dose 1 EA; Start 04/26/17 at 02:00 Citric Acid/ Sodium Citrate (Bicitra) 30 ml TID PO Last administered on 11:57; Admin Dose 30 ML; Start 04/25/17 at 13:00 Aspirin (Aspirin) 81 mg DAILY PO Last administered on 04/30/17 10:05; Admin Dose 81 MG; Start 04/25/17 at 12:00; Status Future Hold Heparin Sodium (Porcine) (Heparin (5000 Units/0.5 ml)) 5,000 unit BID SC Last administered on 05/08/17 09:02; Admin Dose 5,000 UNIT; Start 04/26/17 at 09:00 ; Status Future Hold Miscellaneous Information 1 ea NOTE XX Last administered on 04/30/17 17:45; Admin Dose 1 EA; Start 04/25/17 at 12:00 Glucose (Glutose) 15 gm Q15M PRN PO DECREASED GLUCOSE; Start 04/25/17 at 12:00 Glucose (Glutose) 22.5 gm Q15M PRN PO DECREASED GLUCOSE; Start 04/25/17 at 12: 00 Dextrose (D50w Syringe) 25 ml Q15M PRN IV DECREASED GLUCOSE Last administered on 05/08/17 16:08; Admin Dose 25 ML; Start 04/25/17 at 12:00 Dextrose (D50w Syringe) 50 ml Q15M PRN IV DECREASED GLUCOSE Last administered on 05/09/17 00:39; Admin Dose 50 ML; Start 04/25/17 at 12:00 Glucagon (Glucagen) 1 mg Q15M PRN IM DECREASED GLUCOSE; Start 04/25/17 at 12: 00 Glucose (Glutose) 15 gm Q15M PRN BUCCAL DECREASED GLUCOSE; Start 04/25/17 at 12:00 Furosemide (Lasix) 20 mg BID IV Last administered on 05/13/17 09:39; Admin Dose 20 MG; Start 04/26/17 at 09:00 Fish Oil (Fish Oil) 2,000 mg BID PO Last administered on 05/13/17 09:41; Admin Dose 2,000 MG; Start 04/27/17 at 21:00 EZETIMIBE (Zetia) 10 mg DAILY PO Last administered on 05/13/17 09:40; Admin Dose 10 MG; Start 04/28/17 at 09:00 Morphine Sulfate (morphine) 2 mg Q4H PRN IV Pain Last administered on 10:24; Admin Dose 2 MG; Start 04/28/17 at 09:00 Linagliptin (Tradjenta) 5 mg DAILY PO Last administered on 05/13/17 09:42; Admin Dose 5 MG; Start 04/28/17 at 12:00 Tiotropium [place] (Spiriva) 1 inh DAILY INH Last administered on 05/13/17 09 :40; Admin Dose 1 INH; Start 04/30/17 at 13:30 Salmeterol Xinafoate/ Fluticasone (Advair 250/50 Diskus) 1 inh BID INH Last administered on 05/13/17 09:38; Admin Dose 1 INH; Start 04/30/17 at 21:00 Amlodipine Besylate (Norvasc) 5 mg BID PO Last administered on 05/13/17 11:49 ; Admin Dose 5 MG; Start 05/03/17 at 21:00 Carvedilol (Coreg) 3.125 mg BID PO Last administered on 05/13/17 09:42; Admin Dose 3.125 MG; Start 05/04/17 at 09:00 Epoetin Jero (Epogen (Esrd)) 6,000 units TuThSa@17 SC Last administered on 17:12; Admin Dose 6,000 UNITS; Start 05/11/17 at 17:00 Insulin Glargine (Lantus) 25 unit BID SC Last administered on 05/13/17 10:06 ; Admin Dose 25 UNIT; Start 05/12/17 at 21:00 PERRY JUAREZ May 13, 2017 14:11
[2017-05-13 19:12] LABS: CREATININE, RANDOM URINE 110 mg/dL (20-370); PROTEIN/CREATININE RATIO 2273 mg/g creat (22-128)
[2017-05-13] MEDS: FOLIC ACID 1 MG TAB PO SCH (21:06)
[2017-05-13] MEDS: ATORVASTATIN 80 MG TAB PO SCH (21:06)
--- NOTE | 2017-05-13 21:23 | CONS ---
Date/Time of Note Date/Time of Note DATE: 05/13/17 TIME: 21:18 Assessment/Plan Assessment/Plan Additional Assessment/Plan 1. 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 H/o CKD due to diabetic nehropathy as per pt was stage IV/V with eGFR 15 as outpatient 3. Acute hyperkalemia due to TROY on CKD - resolved after pt gets started on HD 4. Metabolic acidosis due to worsenign renal failure 5. H/ CAD S/p previous coronary angiogram as per patient 6. Hypertension 7. Type II DM 8. Hyperlipidemia 9. Acute NSETMI due to CHF 10. severe anemia despite getting PRBC, concerned abotu GI bleeding, Plan : hepatitis C antibody positive, Hepatitis A antibody positive EGD showed distal esophagitis, s/p Hd today 2.5 L removed, will keep him on MWF Schedule, Hb dropped to 7.5- on Epogen 6000 units TIW for anemia , Hematology consulted on the case. HD placement confirmed at [facility] - [facility] [place] is MWF will follow up Consultation Date/Type/Reason Admit Date/Time Apr 24, 2017 at 19:05 Initial Consult Date 04/25/17 Type of Consultation: NEPHROLOGY Referring Provider: NANY PRIEST NP 24 HR Interval Summary Free Text/Dictation Hb dropped to 7.5, s/p HD today 2.5 L removed Exam/Review of Systems Vital Signs Vitals Vital Signs Date Time Temp Pulse Resp B/P Pulse Ox O2 Delivery O2 Flow Rate FiO2 05/13/17 20:42 21 05/13/17 20:42 75 20 96 05/13/17 20:21 97.5 137/63 Intake and Output 05/12/17 05/12/17 05/13/17 15:00 23:00 07:00 Intake Total 700 ml 100 ml Balance 700 ml 100 ml Exam Constitutional: alert Respiratory: clear to auscultation, diminished breath sounds, normal air movement, + right chest permacath Cardiovascular: nl pulses, regular rate and rhythm Gastrointestinal: non-tender, soft Musculoskeletal: muscle weakness, nl extremities to inspection, swelling Extremities: calf tenderness, normal pulses 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: 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 IMPROVEMENT 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 II-XII 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, nl mental status, nl speech, nl strength Results Result Diagram: 05/13/17 0627 05/13/17 0627 Results 24 hrs Laboratory Tests Test 05/13/17 06:27 05/13/17 09:31 05/13/17 11:59 05/13/17 17:40 White Blood Count 6.0 Red Blood Count 2.38 L Hemoglobin 7.5 L Hematocrit 23.6 L Mean Corpuscular Volume 99.2 Mean Corpuscular Hemoglobin 31.5 Mean Corpuscular Hemoglobin Concent 31.8 L Red Cell Distribution Width 18.0 H Platelet Count 184 Mean Platelet Volume 12.6 H Neutrophils % 63.8 Lymphocytes % 23.3 Monocytes % 8.5 Eosinophils % 3.5 Basophils % 0.7 Nucleated Red Blood Cells % 0.0 Neutrophils # 3.8 Lymphocytes # 1.4 Monocytes # 0.5 Eosinophils # 0.2 Basophils # 0.0 Nucleated Red Blood Cells # 0.0 Sodium Level 137 Potassium Level 4.4 Chloride Level 95 L Carbon Dioxide Level 30 Anion Gap 16 Blood Urea Nitrogen 66 H Creatinine 4.97 H Glucose Level 132 # Calcium Level 9.1 Phosphorus Level 4.7 Magnesium Level 2.0 Total Bilirubin 1.0 Direct Bilirubin 0.00 Indirect Bilirubin 1.0 Aspartate Amino Transf (AST/SGOT) 24 Alanine Aminotransferase (ALT/SGPT) 44 Alkaline Phosphatase 56 Total Protein 6.3 Albumin 3.0 L Globulin 3.30 H Albumin/Globulin Ratio 0.90 Bedside Glucose 197 194 76 Test 05/13/17 21:04 Bedside Glucose 114 Medications Medications Current Medications Ondansetron HCl (Zofran Tab) 4 mg Q6H PRN PO NAUSEA AND/OR VOMITING; Start at 23:00 Nitroglycerin (Nitroglycerin (Sl Tab) 0.4 Mg) 1 tab Q5M PRN SL CHEST PAIN; Start 04/24/17 at 23:00 Docusate Sodium (Colace) 100 mg Q12H PRN PO CONSTIPATION; Start 04/24/17 at 23 :00 Bisacodyl (Dulcolax) 5 mg DAILY PRN PO CONSTIPATION; Start 04/24/17 at 23:00 Atorvastatin Calcium (Lipitor) 80 mg QHS PO Last administered on 05/13/17t 21: 06; Admin Dose 80 MG; Start 04/25/17 at 21:00 Ergocalciferol (Drisdol) 50,000 unit Mo@09 PO Last administered on 05/13/17 09:40; Admin Dose 50,000 UNIT; Start 04/24/17 at 23:00 Ferrous Sulfate (Ferrous Sulfate (Ec)) 325 mg DAILY PO Last administered on 09:41; Admin Dose 325 MG; Start 04/25/17 at 09:00 Multivit/Ca Carb/ B Cmplx/FA/Prenat (Isabel-Brenda) 1 tab DAILY PO Last administered on 05/13/17 09:40; Admin Dose 1 TAB; Start 04/25/17 at 09:00 Pantoprazole (Protonix Tab) 40 mg DAILY@06 PO Last administered on 05/13/17 06:08; Admin Dose 40 MG; Start 04/25/17 at 06:00 Guaifenesin/ Dextromethorphan (Mucinex Dm) 1 tab BID PO Last administered on 21:06; Admin Dose 1 TAB; Start 04/25/17 at 03:15 Diagnostic Test (Pha) (Accu-Chek) 1 ea 02 XX Last administered on 05/13/17 02 :15; Admin Dose 1 EA; Start 04/26/17 at 02:00 Citric Acid/ Sodium Citrate (Bicitra) 30 ml TID PO Last administered on 21:06; Admin Dose 30 ML; Start 04/25/17 at 13:00 Aspirin (Aspirin) 81 mg DAILY PO Last administered on 04/30/17 10:05; Admin Dose 81 MG; Start 04/25/17 at 12:00; Status Future Hold Heparin Sodium (Porcine) (Heparin (5000 Units/0.5 ml)) 5,000 unit BID SC Last administered on 05/08/17 09:02; Admin Dose 5,000 UNIT; Start 04/26/17 at 09:00 ; Status Future Hold Miscellaneous Information 1 ea NOTE XX Last administered on 04/30/17 17:45; Admin Dose 1 EA; Start 04/25/17 at 12:00 Glucose (Glutose) 15 gm Q15M PRN PO DECREASED GLUCOSE; Start 04/25/17 at 12:00 Glucose (Glutose) 22.5 gm Q15M PRN PO DECREASED GLUCOSE; Start 04/25/17 at 12: 00 Dextrose (D50w Syringe) 25 ml Q15M PRN IV DECREASED GLUCOSE Last administered on 05/08/17 16:08; Admin Dose 25 ML; Start 04/25/17 at 12:00 Dextrose (D50w Syringe) 50 ml Q15M PRN IV DECREASED GLUCOSE Last administered on 05/09/17 00:39; Admin Dose 50 ML; Start 04/25/17 at 12:00 Glucagon (Glucagen) 1 mg Q15M PRN IM DECREASED GLUCOSE; Start 04/25/17 at 12: 00 Glucose (Glutose) 15 gm Q15M PRN BUCCAL DECREASED GLUCOSE; Start 04/25/17 at 12:00 Furosemide (Lasix) 20 mg BID IV Last administered on 05/13/17 21:08; Admin Dose 20 MG; Start 04/26/17 at 09:00 Fish Oil (Fish Oil) 2,000 mg BID PO Last administered on 05/13/17 21:06; Admin Dose 2,000 MG; Start 04/27/17 at 21:00 EZETIMIBE (Zetia) 10 mg DAILY PO Last administered on 05/13/17 09:40; Admin Dose 10 MG; Start 04/28/17 at 09:00 Morphine Sulfate (morphine) 2 mg Q4H PRN IV Pain Last administered on 10:24; Admin Dose 2 MG; Start 04/28/17 at 09:00 Linagliptin (Tradjenta) 5 mg DAILY PO Last administered on 05/13/17 09:42; Admin Dose 5 MG; Start 04/28/17 at 12:00 Tiotropium [place] (Spiriva) 1 inh DAILY INH Last administered on 05/13/17 09 :40; Admin Dose 1 INH; Start 04/30/17 at 13:30 Salmeterol Xinafoate/ Fluticasone (Advair 250/50 Diskus) 1 inh BID INH Last administered on 05/13/17 21:05; Admin Dose 1 INH; Start 04/30/17 at 21:00 Amlodipine Besylate (Norvasc) 5 mg BID PO Last administered on 05/13/17 21:07 ; Admin Dose 5 MG; Start 05/03/17 at 21:00 Carvedilol (Coreg) 3.125 mg BID PO Last administered on 05/13/17 21:07; Admin Dose 3.125 MG; Start 05/04/17 at 09:00 Epoetin Jero (Epogen (Esrd)) 6,000 units TuThSa@17 SC Last administered on 17:12; Admin Dose 6,000 UNITS; Start 05/11/17 at 17:00 Insulin Glargine (Lantus) 25 unit BID SC Last administered on 05/13/17 10:06 ; Admin Dose 25 UNIT; Start 05/12/17 at 21:00 Folic Acid (Folic Acid) 1 mg DAILY PO Last administered on 05/13/17 21:06; Admin Dose 1 MG; Start 05/13/17 at 20:30 RAQUEL MCDOWELL MD May 13, 2017 21:22
[2017-05-13 21:47] LABS: FOLATE > 20.0 ng/ml (2.8-20.0)
[2017-05-14] VITALS (11 sets, daily range): BP systolic 122–141; BP diastolic 58–69; PULSE 52–66; RESP 17–19
[2017-05-14] MEDS: ALBUTEROL/IPRATROPIUM (NEB) 3 ML AMP HHN SCH ×6 (00:49→20:40)
[2017-05-14] MEDS: ACCU-CHEK XX SCH (02:00)
[2017-05-14] MEDS: PANTOPRAZOLE (EC) 40 MG TAB PO SCH (05:56)
--- NOTE | 2017-05-14 06:29 | PN ---
DATE: 05/13/2017 HEMATOLOGY PROGRESS NOTE SUBJECTIVE: Patient has no new complaints today. He does have some dyspnea on exertion. Denies ch est pain or cough. Apparently, patient did have cough and fever prior to admission, according to the patient's family. OBJECTIVE: GENERAL: The patient is a well-developed, but obese male who is sitting up in chair. Appears comfo rtable and not short of breath. VITAL SIGNS: Temperature 99, pulse 58 per minute and regular, respirations 20, blood pressure 134/6 3, pulse oximetry is 96% on room air. SKIN: Pale. No ecchymosis, no petechiae or rashes. HEENT: Normocephalic. No evidence of trauma. Pupils equal, round, react to light and accommodatio n. Sclerae are nonicteric. Oral mucosa is moist without lesions. Tongue is well papillated. Ther e is no gingival hyperplasia, no hypertrophy of Waldeyer's ring. NECK: Supple. No jugular venous distention or thyroid enlargement. CHEST: Decreased breath sounds in both bases, but no rhonchi, wheezes, rales or rubs. There is a r ight internal jugular Perm-A-Cath in place. NODES: No palpable adenopathy. HEART: Sinus bradycardia, but no S3s, S4 or murmurs, no rubs. ABDOMEN: Obese without masses or ascites. EXTREMITIES: Good range of motion. No clubbing or cyanosis. There is 1+ bilateral pretibial edema . No edema of the right arm. NEUROLOGIC: Normal. LABORATORY DATA: Cold agglutinin titer has been reported to be 1:512. Quantitative immunoglobulins are all normal quantitatively, but a serum immunofixation and urine immunofixation is pending. CBC today, white count 15,200 with 71% neutrophils and 15.7% lymphocytes. Hemoglobin is 7.9, hematocri t 24.2 and platelet count of 432,000. Sodium 137, potassium 4.4, BUN 66, creatinine 4.97. Total bilirubin is 1, indirect bilirubin is als o 1. LDH reported yesterday was 1086. Total bilirubin yesterday was 1.3 with an indirect bilirubin of 1.3. Haptoglobin obtained on 05/08/2017 was less than 15. Reticulocyte count on 05/12/2017 was 6.9% with an absolute reticulocyte count of 185,000. ASSESSMENT: 1. [id number] renal failure. 2. Cold agglutinin hemolytic anemia. DISCUSSION: This patient is anemic. This is probably multifactorial. The patient does have renal failure, which certainly can contribute to anemia. The patient also had been demonstrated to have a n elevated cold agglutinin titer and has evidence of hemolytic anemia with an elevated LDH, as well as an absent haptoglobin. The patient, on admission, did have iron studies consistent with a hemolytic process in which the se rum iron on 04/28/2017 was 210, with iron binding capacity of 277, percent saturation 76% and a ferr itin of 1090. At the time of patient's hospitalization, he had a total bilirubin of 0.6, but an indirect bilirubin of only 0.6. On 04/26/2017, bilirubin was up to 1.4, all of which was indirect. On 04/27/2017, it was 2.3, all of which was indirect. On 04/28/2017, it was 3.9, all of which was indirect. On 04/26, the bilirubin dropped to 2.3. Again, this was all indirect. On 05/11/2017 it was 1.7, all interact, and today it is 1, indirect. It appears that the hemolytic process may be decreasing. It is unclear whether this cold agglutinin is related to an infectious process such as a mycoplasma pneumonia infection. Other possibilities include underlying autoimmune diseases or even immunoproliferative disorders, although there is no e vidence of this. The G6PD levels have been checked. We will also repeat haptoglobin and LDH, as well as bilirubin to kilo indirect, and review the peripheral smear. The patient was given 1 mg of folic acid on 05/11/2017. I feel that he will require a folic acid healy pplementation daily until the hemolytic process is controlled. Unfortunately, folic acid level and B12 assays were not obtained. I will request these. There is no evidence of a consumptive coagulopathy such as DIC, TTP or hemolytic uremic syndrome, as the patient's platelet count remains normal. Also, it is unlikely that this would represent paroxy smal nocturnal hemoglobinuria, although I will check a FLAER for PNH. Cryoglobulins are also pendin g at this time. As noted, we will start the patient on folic acid daily, 1 mg per day, we will also obtain folic aci d and B12 levels in the a.m. As noted, I feel that this patient's cold agglutinin disorder is resolving as the bilirubin has cert ainly decreased. We will need to continue to follow haptoglobin, as well as LDH to determine if hem olysis has actually decreased or resolved. Dictated By: QUIANA MOULTON MD SR/NTS Conf#: [id number] DID#: [id number] CC: MARVIN ROTH MD;*EndCC*
--- NOTE | 2017-05-14 08:09 | CONS ---
Date/Time of Note Date/Time of Note DATE: 05/14/17 TIME: 08:07 Assessment/Plan Assessment/Plan Chief Complaint/Hosp Course Volume overload Acute kidney injury with history of CKD, started on hemodialysis Acute decompensated diastolic congestive heart failure Diabetes CAD with history of PCI over 10 years ago Hypertension Dyslipidemia History of DVT, previously on anticoagulation Acute blood loss anemia status post blood transfusion Intermittent Mobitz type I, asymptomatic Problems: Additional Assessment/Plan 1) no change in cardiac regimen 2) HD for fluid removal Consultation Date/Type/Reason Admit Date/Time Apr 24, 2017 at 19:05 Initial Consult Date 05/01/17 Type of Consultation: cv Referring Provider: NANY PRIEST NP 24 HR Interval Summary Free Text/Dictation comfortable, no chest pain, no sob, no palpitations, able to lie supine Detailed Summary Respiratory: no complaints Cardiovascular: no complaints Gastrointestinal: no complaints Musculoskeletal: no complaints Skin: no complaints Neurologic: no complaints Endocrine: no complaints Exam/Review of Systems Vital Signs Vitals Vital Signs Date Time Temp Pulse Resp B/P Pulse Ox O2 Delivery O2 Flow Rate FiO2 05/14/17 07:31 98.2 66 19 122/58 93 05/14/17 04:38 21 Intake and Output 05/13/17 05/13/17 05/14/17 15:00 23:00 07:00 Intake Total 500 ml 700 ml 120 ml Output Total 3000 ml Balance -2500 ml 700 ml 120 ml Exam Constitutional: alert, oriented Head: atraumatic, normocephalic Neck: supple Respiratory: diminished breath sounds Cardiovascular: regular rate and rhythm Gastrointestinal: soft Musculoskeletal: nl extremities to inspection Extremities: normal pulses Results Result Diagram: 05/13/17 0627 05/13/17 0627 Results 24 hrs Laboratory Tests Test 05/13/17 09:31 05/13/17 11:59 05/13/17 17:40 05/13/17 21:04 Bedside Glucose 197 194 76 114 Medications Medications Current Medications Ondansetron HCl (Zofran Tab) 4 mg Q6H PRN PO NAUSEA AND/OR VOMITING; Start at 23:00 Nitroglycerin (Nitroglycerin (Sl Tab) 0.4 Mg) 1 tab Q5M PRN SL CHEST PAIN; Start 04/24/17 at 23:00 Docusate Sodium (Colace) 100 mg Q12H PRN PO CONSTIPATION; Start 04/24/17 at 23 :00 Bisacodyl (Dulcolax) 5 mg DAILY PRN PO CONSTIPATION; Start 04/24/17 at 23:00 Atorvastatin Calcium (Lipitor) 80 mg QHS PO Last administered on 05/13/17 21: 06; Admin Dose 80 MG; Start 04/25/17 at 21:00 Ergocalciferol (Drisdol) 50,000 unit Mo@09 PO Last administered on 05/13/17 09:40; Admin Dose 50,000 UNIT; Start 04/24/17 at 23:00 Ferrous Sulfate (Ferrous Sulfate (Ec)) 325 mg DAILY PO Last administered on 09:41; Admin Dose 325 MG; Start 04/25/17 at 09:00 Multivit/Ca Carb/ B Cmplx/FA/Prenat (Isabel-Brenda) 1 tab DAILY PO Last administered on 05/13/17 09:40; Admin Dose 1 TAB; Start 04/25/17 at 09:00 Pantoprazole (Protonix Tab) 40 mg DAILY@06 PO Last administered on 05/14/17 05:56; Admin Dose 40 MG; Start 04/25/17 at 06:00 Guaifenesin/ Dextromethorphan (Mucinex Dm) 1 tab BID PO Last administered on 21:06; Admin Dose 1 TAB; Start 04/25/17 at 03:15 Diagnostic Test (Pha) (Accu-Chek) 1 ea 02 XX Last administered on 05/13/17 02 :15; Admin Dose 1 EA; Start 04/26/17 at 02:00 Citric Acid/ Sodium Citrate (Bicitra) 30 ml TID PO Last administered on 21:06; Admin Dose 30 ML; Start 04/25/17 at 13:00 Aspirin (Aspirin) 81 mg DAILY PO Last administered on 04/30/17 10:05; Admin Dose 81 MG; Start 04/25/17 at 12:00; Status Future Hold Heparin Sodium (Porcine) (Heparin (5000 Units/0.5 ml)) 5,000 unit BID SC Last administered on 05/08/17 09:02; Admin Dose 5,000 UNIT; Start 04/26/17 at 09:00 ; Status Future Hold Miscellaneous Information 1 ea NOTE XX Last administered on 04/30/17 17:45; Admin Dose 1 EA; Start 04/25/17 at 12:00 Glucose (Glutose) 15 gm Q15M PRN PO DECREASED GLUCOSE; Start 04/25/17 at 12:00 Glucose (Glutose) 22.5 gm Q15M PRN PO DECREASED GLUCOSE; Start 04/25/17 at 12: 00 Dextrose (D50w Syringe) 25 ml Q15M PRN IV DECREASED GLUCOSE Last administered on 05/08/17 16:08; Admin Dose 25 ML; Start 04/25/17 at 12:00 Dextrose (D50w Syringe) 50 ml Q15M PRN IV DECREASED GLUCOSE Last administered on 05/09/17 00:39; Admin Dose 50 ML; Start 04/25/17 at 12:00 Glucagon (Glucagen) 1 mg Q15M PRN IM DECREASED GLUCOSE; Start 04/25/17 at 12: 00 Glucose (Glutose) 15 gm Q15M PRN BUCCAL DECREASED GLUCOSE; Start 04/25/17 at 12:00 Furosemide (Lasix) 20 mg BID IV Last administered on 05/13/17 21:08; Admin Dose 20 MG; Start 04/26/17 at 09:00 Fish Oil (Fish Oil) 2,000 mg BID PO Last administered on 05/13/17 21:06; Admin Dose 2,000 MG; Start 04/27/17 at 21:00 EZETIMIBE (Zetia) 10 mg DAILY PO Last administered on 05/13/17 09:40; Admin Dose 10 MG; Start 04/28/17 at 09:00 Morphine Sulfate (morphine) 2 mg Q4H PRN IV Pain Last administered on 10:24; Admin Dose 2 MG; Start 04/28/17 at 09:00 Linagliptin (Tradjenta) 5 mg DAILY PO Last administered on 05/13/17 09:42; Admin Dose 5 MG; Start 04/28/17 at 12:00 Tiotropium [place] (Spiriva) 1 inh DAILY INH Last administered on 05/13/17 09 :40; Admin Dose 1 INH; Start 04/30/17 at 13:30 Salmeterol Xinafoate/ Fluticasone (Advair 250/50 Diskus) 1 inh BID INH Last administered on 05/13/17 21:05; Admin Dose 1 INH; Start 04/30/17 at 21:00 Amlodipine Besylate (Norvasc) 5 mg BID PO Last administered on 05/13/17 21:07 ; Admin Dose 5 MG; Start 05/03/17 at 21:00 Carvedilol (Coreg) 3.125 mg BID PO Last administered on 05/13/17 21:07; Admin Dose 3.125 MG; Start 05/04/17 at 09:00 Epoetin Jero (Epogen (Esrd)) 6,000 units TuThSa@17 SC Last administered on 17:12; Admin Dose 6,000 UNITS; Start 05/11/17 at 17:00 Insulin Glargine (Lantus) 25 unit BID SC Last administered on 05/13/17 10:06 ; Admin Dose 25 UNIT; Start 05/12/17 at 21:00 Folic Acid (Folic Acid) 1 mg DAILY PO Last administered on 05/13/17 21:06; Admin Dose 1 MG; Start 05/13/17 at 20:30 AUDI BRADFORD MD May 14, 2017 08:08
[2017-05-14] MEDS: INSULIN ASPART [NOVOLOG] 3 ML PEN SC SCH ×7 (08:26→20:55)
[2017-05-14] MEDS: INSULIN GLARGINE [LANtus] 3 ML PEN SC SCH ×2 (08:27→20:55)
[2017-05-14] MEDS: SALMETEROL/FLUTICASONE 250/50 INHA INH SCH ×2 (08:38→20:54)
[2017-05-14] MEDS: CITRIC ACID/SODIUM CITRATE 15 ML CUP PO SCH ×3 (08:38→20:53)
[2017-05-14] MEDS: FISH OIL 1,000 MG CAP PO SCH ×2 (08:39→20:52)
[2017-05-14] MEDS: GUAIFENESIN/DM (SR) TAB PO SCH ×2 (08:40→21:00)
[2017-05-14] MEDS: AMLODIPINE 5 MG TAB PO SCH ×2 (08:40→20:53)
[2017-05-14] MEDS: LINAGLIPTIN 5 MG TABLET PO SCH (08:40)
[2017-05-14] MEDS: EZETIMIBE 10 MG TAB PO SCH (08:40)
[2017-05-14] MEDS: FERROUS SULFATE (EC) 325 MG TAB PO SCH (08:40)
[2017-05-14] MEDS: FOLIC ACID 1 MG TAB PO SCH (08:40)
[2017-05-14] MEDS: MULTIVIT/CA CARB/B CMPLX/FA TAB PO SCH (08:40)
[2017-05-14] MEDS: FUROSEMIDE 20 MG INJ IV SCH ×2 (08:41→20:54)
[2017-05-14] MEDS: TIOTROPIUM 18 MCG CAPSULE INHA DEV INH SCH (08:41)
[2017-05-14 09:58] LABS: HEMATOCRIT 24.8 % (42.0-52.0); MEAN CORPUSCULAR HEMOGLOBIN 31.5 pg (29.0-33.0); MEAN CORPUSCULAR HGB CONC 33.1 g/dl (32.0-37.0); MEAN CORPUSCULAR VOLUME 95.4 fl (82.0-101.0); MEAN PLATELET VOLUME 12.2 fl (7.4-10.4); NUCLEATED RED BLOOD CELLS # 0.1 10^3/ul (0.0-0.0); NUCLEATED RED BLOOD CELLS% 0.7 /100WBC (0.0-0.0); POSITIVE DIFF @See below; RED CELL DISTRIBUTION WIDTH 17.2 % (11.5-14.5)
[2017-05-14 10:04] LABS: WHITE BLOOD COUNT 5.8 10^3/ul (4.8-10.8)
[2017-05-14 10:05] LABS: HEMOGLOBIN 8.2 g/dl (14.0-18.0); PLATELET COUNT 222 10^3/UL (140-415)
[2017-05-14 10:44] LABS: RETICULOCYTE COUNT % 5.8 % (0.5-1.5)
[2017-05-14 14:42] LABS: ANA SCREEN NEGATIVE (NEGATIVE)
--- NOTE | 2017-05-14 16:18 | PN ---
Date/Time of Note Date/Time of Note DATE: 05/14/17 TIME: 16:16 Assessment/Plan VTE Prophylaxis VTE Prophylaxis Intervention: heparin Lines/Catheters IV [facility]ter Type (from [facility]): Permacath Urinary Cath still in place: No Assessment/Plan Chief Complaint/Hosp Course Assessment and plan 1. Acute respiratory failure secondary to fluid overload. Improved status post dialysis. monitor for now. O2 as needed. 2. Intermittent Mobitz type I block. A symptomatically present. [place] Operator following. Monitor on telemetry. 3. Acute on chronic CHF. Noted with diastolic dysfunction. On dialysis. Stable at present. 4. Moderate distal esophagitis. Continue PPI medication. 5. Pulmonary hypertension. Noted with PA systolic pressure of 44 mmHg. Off O2. Tolerating well. Monitor for now. 6. History of CAD. Patient is status post PTCA. Of note aspirin on hold due to current anemia. 7. Dyslipidemia. Continue on statin medication. 8. Metabolic acidosis. Secondary to renal dysfunction. Bicitra per hvac maintenance technician. 9. Type 2 diabetes. On insulin regimen. Followed by hvac maintenance technician. Adjust as needed. 10. Essential hypertension. Continue antihypertensives and adjust needed. 11. DVT of the left popliteal vein. Anticoagulation on hold secondary to anemia. 12. Acute on chronic kidney disease. On dialysis now. Monitor I's. 13. Anemia. Labile at present. Weight Control Engineer to follow. Disposition and plan: continue anemia workup per agricultural sales representative. monitor H&H trend. await clinical improvement. d/c when cleared by consultants Discussed plan of care with Dr. Pelayo Problems: Subjective 24 Hr Interval Summary Free Text/Dictation no s/s of distress. family at bedside Exam/Review of Systems Vital Signs Vitals Vital Signs Date Time Temp Pulse Resp B/P Pulse Ox O2 Delivery O2 Flow Rate FiO2 05/14/17 13:45 66 20 96 21 05/14/17 11:36 98.2 131/60 Intake and Output 05/13/17 05/13/17 05/14/17 15:00 23:00 07:00 Intake Total 500 ml 700 ml 120 ml Output Total 3000 ml Balance -2500 ml 700 ml 120 ml Exam Constitutional: alert, oriented Psych: no complaints Head: normocephalic Neck: non-tender, supple Respiratory: clear to auscultation, normal air movement Cardiovascular: regular rate and rhythm Gastrointestinal: non-tender, soft Musculoskeletal: nl extremities to inspection 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: [employer] II-XII intact, nl mental status, nl speech Skin: nl turgor Results Result Diagram: 05/14/17 0911 05/13/17 0627 Results 24 hrs Laboratory Tests Test 05/13/17 17:40 05/13/17 21:04 05/14/17 08:13 05/14/17 09:11 Bedside Glucose 76 114 171 White Blood Count 5.8 Red Blood Count 2.60 L Hemoglobin 8.2 L Hematocrit 24.8 L Mean Corpuscular Volume 95.4 Mean Corpuscular Hemoglobin 31.5 Mean Corpuscular Hemoglobin Concent 33.1 Red Cell Distribution Width 17.2 H Platelet Count 222 # Mean Platelet Volume 12.2 H Nucleated Red Blood Cells % 0.7 H Nucleated Red Blood Cells # 0.1 H Absolute Reticulocyte Count 0.019 L Percent Reticulocyte Count 5.8 H Lactate Dehydrogenase 641 H Test 05/14/17 12:20 Bedside Glucose 193 Medications Medications Current Medications Ondansetron HCl (Zofran Tab) 4 mg Q6H PRN PO NAUSEA AND/OR VOMITING; Start at 23:00 Nitroglycerin (Nitroglycerin (Sl Tab) 0.4 Mg) 1 tab Q5M PRN SL CHEST PAIN; Start 04/24/17 at 23:00 Docusate Sodium (Colace) 100 mg Q12H PRN PO CONSTIPATION; Start 04/24/17 at 23 :00 Bisacodyl (Dulcolax) 5 mg DAILY PRN PO CONSTIPATION; Start 04/24/17 at 23:00 Atorvastatin Calcium (Lipitor) 80 mg QHS PO Last administered on 05/13/17 21: 06; Admin Dose 80 MG; Start 04/25/17 at 21:00 Ergocalciferol (Drisdol) 50,000 unit Mo@09 PO Last administered on 05/13/17 09:40; Admin Dose 50,000 UNIT; Start 04/24/17 at 23:00 Ferrous Sulfate (Ferrous Sulfate (Ec)) 325 mg DAILY PO Last administered on 08:40; Admin Dose 325 MG; Start 04/25/17 at 09:00 Multivit/Ca Carb/ B Cmplx/FA/Prenat (Isabel-Brenda) 1 tab DAILY PO Last administered on 05/14/17 08:40; Admin Dose 1 TAB; Start 04/25/17 at 09:00 Pantoprazole (Protonix Tab) 40 mg DAILY@06 PO Last administered on 05/14/17 05:56; Admin Dose 40 MG; Start 04/25/17 at 06:00 Guaifenesin/ Dextromethorphan (Mucinex Dm) 1 tab BID PO Last administered on 08:40; Admin Dose 1 TAB; Start 04/25/17 at 03:15 Diagnostic Test (Pha) (Accu-Chek) 1 ea 02 XX Last administered on 05/13/17 02 :15; Admin Dose 1 EA; Start 04/26/17 at 02:00 Citric Acid/ Sodium Citrate (Bicitra) 30 ml TID PO Last administered on 12:22; Admin Dose 30 ML; Start 04/25/17 at 13:00 Aspirin (Aspirin) 81 mg DAILY PO Last administered on 04/30/17 10:05; Admin Dose 81 MG; Start 04/25/17 at 12:00; Status Future Hold Heparin Sodium (Porcine) (Heparin (5000 Units/0.5 ml)) 5,000 unit BID SC Last administered on 05/08/17 09:02; Admin Dose 5,000 UNIT; Start 04/26/17 at 09:00 ; Status Future Hold Miscellaneous Information 1 ea NOTE XX Last administered on 04/30/17 17:45; Admin Dose 1 EA; Start 04/25/17 at 12:00 Glucose (Glutose) 15 gm Q15M PRN PO DECREASED GLUCOSE; Start 04/25/17 at 12:00 Glucose (Glutose) 22.5 gm Q15M PRN PO DECREASED GLUCOSE; Start 04/25/17 at 12: 00 Dextrose (D50w Syringe) 25 ml Q15M PRN IV DECREASED GLUCOSE Last administered on 05/08/17 16:08; Admin Dose 25 ML; Start 04/25/17 at 12:00 Dextrose (D50w Syringe) 50 ml Q15M PRN IV DECREASED GLUCOSE Last administered on 05/09/17 00:39; Admin Dose 50 ML; Start 04/25/17 at 12:00 Glucagon (Glucagen) 1 mg Q15M PRN IM DECREASED GLUCOSE; Start 04/25/17 at 12: 00 Glucose (Glutose) 15 gm Q15M PRN BUCCAL DECREASED GLUCOSE; Start 04/25/17 at 12:00 Furosemide (Lasix) 20 mg BID IV Last administered on 05/14/17 08:41; Admin Dose 20 MG; Start 04/26/17 at 09:00 Fish Oil (Fish Oil) 2,000 mg BID PO Last administered on 05/14/17 08:39; Admin Dose 2,000 MG; Start 04/27/17 at 21:00 EZETIMIBE (Zetia) 10 mg DAILY PO Last administered on 05/14/17 08:40; Admin Dose 10 MG; Start 04/28/17 at 09:00 Morphine Sulfate (morphine) 2 mg Q4H PRN IV Pain Last administered on 10:24; Admin Dose 2 MG; Start 04/28/17 at 09:00 Linagliptin (Tradjenta) 5 mg DAILY PO Last administered on 05/14/17 08:40; Admin Dose 5 MG; Start 04/28/17 at 12:00 Tiotropium [place] (Spiriva) 1 inh DAILY INH Last administered on 05/14/17 08 :41; Admin Dose 1 INH; Start 04/30/17 at 13:30 Salmeterol Xinafoate/ Fluticasone (Advair 250/50 Diskus) 1 inh BID INH Last administered on 05/14/17 08:38; Admin Dose 1 INH; Start 04/30/17 at 21:00 Amlodipine Besylate (Norvasc) 5 mg BID PO Last administered on 05/14/17 08:40 ; Admin Dose 5 MG; Start 05/03/17 at 21:00 Carvedilol (Coreg) 3.125 mg BID PO Last administered on 05/14/17 08:39; Admin Dose 3.125 MG; Start 05/04/17 at 09:00 Epoetin Jero (Epogen (Esrd)) 6,000 units TuThSa@17 SC Last administered on 17:12; Admin Dose 6,000 UNITS; Start 05/11/17 at 17:00 Insulin Glargine (Lantus) 25 unit BID SC Last administered on 05/14/17 08:27 ; Admin Dose 25 UNIT; Start 05/12/17 at 21:00 Folic Acid (Folic Acid) 1 mg DAILY PO Last administered on 05/14/17t 08:40; Admin Dose 1 MG; Start 05/13/17 at 20:30 PERRY JUAREZ May 14, 2017 16:18
--- NOTE | 2017-05-14 17:22 | CONS ---
Date/Time of Note Date/Time of Note DATE: 05/14/17 TIME: 17:18 Assessment/Plan Assessment/Plan Chief Complaint/Hosp Course Pleasant Litzy samayoa with his family present in the room reporting a 30 year history of diabetes mellitus type 2. He had been on oral agent therapy but as his kidneys declined he was transitioned over to a multiple daily injection regimen using Lantus and NovoLog. He intermittently takes full dose Januvia 100 mg despite his renal dysfunction Problems: (1) Diabetes mellitus type 2 in obese Status: Chronic Comment: His blood sugar is adequately controlled on the current medication regimen. I would continue this as it is without changes. From the standpoint he is stable for discharge (2) Hemolytic anemia Status: Acute Comment: Appreciate the input from Dr. Yousif. 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 As such this is somewhat less worrisome issue. (5) Coronary artery disease Status: Chronic Comment: Quiescent. Qualifiers: Coronary Disease-Associated Artery/Lesion type: agdaagux artery [place] vs. transplanted heart: agdaagux heart Associated angina: without angina Qualified Code: I25.10 - Coronary artery disease involving agdaagux coronary artery of agdaagux heart without angina pectoris (6) End stage renal disease on dialysis due to type 2 diabetes mellitus Status: Chronic Comment: As per nephrology. (7) Hyperlipidemia associated with type 2 diabetes mellitus Status: Chronic Comment: Continue statin therapy (8) Essential hypertension Status: Chronic Comment: Adequate control; avoid hydralazine and avoid alpha methyldopa Consultation Date/Type/Reason Admit Date/Time Apr 24, 2017 at 19:05 Initial Consult Date 04/27/17 Type of Consultation: Endocrinology Reason for Consultation Diabetes mellitus type 2 with end-stage renal disease; retinopathy; peripheral neuropathy; multiple daily injection regimen Referring Provider: NANY PRIEST NP 24 HR Interval Summary Free Text/Dictation Patient reports he is bored and would like to go home Detailed Summary Respiratory: no complaints Cardiovascular: no complaints Gastrointestinal: no complaints Genitourinary: no complaints Exam/Review of Systems Vital Signs Vitals Vital Signs Date Time Temp Pulse Resp B/P Pulse Ox O2 Delivery O2 Flow Rate FiO2 05/14/17 16:06 55 05/14/17 13:45 20 96 21 05/14/17 11:36 98.2 131/60 Intake and Output 05/13/17 05/13/17 05/14/17 15:00 23:00 07:00 Intake Total 500 ml 700 ml 120 ml Output Total 3000 ml Balance -2500 ml 700 ml 120 ml Exam Constitutional: alert, oriented Neck: non-tender, supple Respiratory: clear to auscultation, normal air movement Cardiovascular: nl pulses, regular rate and rhythm Results Result Diagram: 05/14/17 0911 05/13/17 0627 Results 24 hrs Laboratory Tests Test 05/13/17 17:40 05/13/17 21:04 05/14/17 08:13 05/14/17 09:11 Bedside Glucose 76 114 171 White Blood Count 5.8 Red Blood Count 2.60 L Hemoglobin 8.2 L Hematocrit 24.8 L Mean Corpuscular Volume 95.4 Mean Corpuscular Hemoglobin 31.5 Mean Corpuscular Hemoglobin Concent 33.1 Red Cell Distribution Width 17.2 H Platelet Count 222 # Mean Platelet Volume 12.2 H Nucleated Red Blood Cells % 0.7 H Nucleated Red Blood Cells # 0.1 H Absolute Reticulocyte Count 0.019 L Percent Reticulocyte Count 5.8 H Lactate Dehydrogenase 641 H Test 05/14/17 12:20 Bedside Glucose 193 Medications Medications Current Medications Ondansetron HCl (Zofran Tab) 4 mg Q6H PRN PO NAUSEA AND/OR VOMITING; Start at 23:00 Nitroglycerin (Nitroglycerin (Sl Tab) 0.4 Mg) 1 tab Q5M PRN SL CHEST PAIN; Start 04/24/17 at 23:00 Docusate Sodium (Colace) 100 mg Q12H PRN PO CONSTIPATION; Start 04/24/17 at 23 :00 Bisacodyl (Dulcolax) 5 mg DAILY PRN PO CONSTIPATION; Start 04/24/17 at 23:00 Atorvastatin Calcium (Lipitor) 80 mg QHS PO Last administered on 05/13/17 21: 06; Admin Dose 80 MG; Start 04/25/17 at 21:00 Ergocalciferol (Drisdol) 50,000 unit Mo@09 PO Last administered on 05/13/17 09:40; Admin Dose 50,000 UNIT; Start 04/24/17 at 23:00 Ferrous Sulfate (Ferrous Sulfate (Ec)) 325 mg DAILY PO Last administered on 08:40; Admin Dose 325 MG; Start 04/25/17 at 09:00 Multivit/Ca Carb/ B Cmplx/FA/Prenat (Isabel-Brenda) 1 tab DAILY PO Last administered on 05/14/17 08:40; Admin Dose 1 TAB; Start 04/25/17 at 09:00 Pantoprazole (Protonix Tab) 40 mg DAILY@06 PO Last administered on 05/14/17 05:56; Admin Dose 40 MG; Start 04/25/17 at 06:00 Guaifenesin/ Dextromethorphan (Mucinex Dm) 1 tab BID PO Last administered on 08:40; Admin Dose 1 TAB; Start 04/25/17 at 03:15 Diagnostic Test (Pha) (Accu-Chek) 1 ea 02 XX Last administered on 05/13/17 02 :15; Admin Dose 1 EA; Start 04/26/17 at 02:00 Citric Acid/ Sodium Citrate (Bicitra) 30 ml TID PO Last administered on 12:22; Admin Dose 30 ML; Start 04/25/17 at 13:00 Aspirin (Aspirin) 81 mg DAILY PO Last administered on 04/30/17 10:05; Admin Dose 81 MG; Start 04/25/17 at 12:00; Status Future Hold Heparin Sodium (Porcine) (Heparin (5000 Units/0.5 ml)) 5,000 unit BID SC Last administered on 05/08/17 09:02; Admin Dose 5,000 UNIT; Start 04/26/17 at 09:00 ; Status Future Hold Miscellaneous Information 1 ea NOTE XX Last administered on 04/30/17 17:45; Admin Dose 1 EA; Start 04/25/17 at 12:00 Glucose (Glutose) 15 gm Q15M PRN PO DECREASED GLUCOSE; Start 04/25/17 at 12:00 Glucose (Glutose) 22.5 gm Q15M PRN PO DECREASED GLUCOSE; Start 04/25/17 at 12: 00 Dextrose (D50w Syringe) 25 ml Q15M PRN IV DECREASED GLUCOSE Last administered on 05/08/17 16:08; Admin Dose 25 ML; Start 04/25/17 at 12:00 Dextrose (D50w Syringe) 50 ml Q15M PRN IV DECREASED GLUCOSE Last administered on 05/09/17 00:39; Admin Dose 50 ML; Start 04/25/17 at 12:00 Glucagon (Glucagen) 1 mg Q15M PRN IM DECREASED GLUCOSE; Start 04/25/17 at 12: 00 Glucose (Glutose) 15 gm Q15M PRN BUCCAL DECREASED GLUCOSE; Start 04/25/17 at 12:00 Furosemide (Lasix) 20 mg BID IV Last administered on 05/14/17 08:41; Admin Dose 20 MG; Start 04/26/17 at 09:00 Fish Oil (Fish Oil) 2,000 mg BID PO Last administered on 05/14/17 08:39; Admin Dose 2,000 MG; Start 04/27/17 at 21:00 EZETIMIBE (Zetia) 10 mg DAILY PO Last administered on 05/14/17 08:40; Admin Dose 10 MG; Start 04/28/17 at 09:00 Morphine Sulfate (morphine) 2 mg Q4H PRN IV Pain Last administered on 10:24; Admin Dose 2 MG; Start 04/28/17 at 09:00 Linagliptin (Tradjenta) 5 mg DAILY PO Last administered on 05/14/17 08:40; Admin Dose 5 MG; Start 04/28/17 at 12:00 Tiotropium [place] (Spiriva) 1 inh DAILY INH Last administered on 05/14/17 08 :41; Admin Dose 1 INH; Start 04/30/17 at 13:30 Salmeterol Xinafoate/ Fluticasone (Advair 250/50 Diskus) 1 inh BID INH Last administered on 05/14/17 08:38; Admin Dose 1 INH; Start 04/30/17 at 21:00 Amlodipine Besylate (Norvasc) 5 mg BID PO Last administered on 05/14/17 08:40 ; Admin Dose 5 MG; Start 05/03/17 at 21:00 Carvedilol (Coreg) 3.125 mg BID PO Last administered on 05/14/17 08:39; Admin Dose 3.125 MG; Start 05/04/17 at 09:00 Epoetin Jero (Epogen (Esrd)) 6,000 units TuThSa@17 SC Last administered on 17:12; Admin Dose 6,000 UNITS; Start 05/11/17 at 17:00 Insulin Glargine (Lantus) 25 unit BID SC Last administered on 05/14/17 08:27 ; Admin Dose 25 UNIT; Start 05/12/17 at 21:00 Folic Acid (Folic Acid) 1 mg DAILY PO Last administered on 05/14/17 08:40; Admin Dose 1 MG; Start 05/13/17 at 20:30 MARA GRAYSON MD May 14, 2017 17:21
[2017-05-14] MEDS: EPOETIN 3000 UNITS/1 ML INJ (ESRD) SC SCH (17:43)
--- NOTE | 2017-05-14 17:48 | PN ---
Date/Time of Note Date/Time of Note DATE: 05/14/17 TIME: 17:45 Assessment/Plan VTE Prophylaxis VTE Prophylaxis Intervention: ambulation Lines/Catheters [facility] Permacath Urinary Cath still in place: No Assessment/Plan Chief Complaint/Hosp Course 66 yo man referred for anemia. I spoke with pt, and Benjamin Velez. In brief he has required RBC transfusions and it is unclear as to how much bleeding there has been. He has numerous medical problems that include diabetes, renal failure requiring dialysis, COPD, CHF, hypertension, dyslipidemia, venous thrombosis on anticoagulation but anticoagulation held because of anemia, esophagitis. No clinical bleeding is presently noted. Problems: Assessment/Plan Hgb is slightly higher. Haptoglobin is rising, LDH is lower. Retic is still appropriately elevated. Hemolysis is likely slowing and he is feeling better. Continue to monitor. If he continues to improve, he could be monitored as an outpatient. Subjective 24 Hr Interval Summary Free Text/Dictation Pt is feeling better Exam/Review of Systems Vital Signs Vitals Vital Signs Date Time Temp Pulse Resp B/P Pulse Ox O2 Delivery O2 Flow Rate FiO2 05/14/17 17:01 62 18 92 21 05/14/17 11:36 98.2 131/60 Intake and Output 05/13/17 05/13/17 05/14/17 15:00 23:00 07:00 Intake Total 500 ml 700 ml 120 ml Output Total 3000 ml Balance -2500 ml 700 ml 120 ml Exam Constitutional: alert, oriented, other (sitting in chair) Head: normocephalic Eyes: other (pallor) Respiratory: clear to auscultation Cardiovascular: regular rate and rhythm Gastrointestinal: non-tender, soft Results Result Diagram: 05/14/17 0911 05/13/17 0627 Results 24 hrs Laboratory Tests Test 05/13/17 21:04 05/14/17 08:13 05/14/17 09:11 05/14/17 12:20 Bedside Glucose 114 171 193 White Blood Count 5.8 Red Blood Count 2.60 L Hemoglobin 8.2 L Hematocrit 24.8 L Mean Corpuscular Volume 95.4 Mean Corpuscular Hemoglobin 31.5 Mean Corpuscular Hemoglobin Concent 33.1 Red Cell Distribution Width 17.2 H Platelet Count 222 # Mean Platelet Volume 12.2 H Nucleated Red Blood Cells % 0.7 H Nucleated Red Blood Cells # 0.1 H Absolute Reticulocyte Count 0.019 L Percent Reticulocyte Count 5.8 H Lactate Dehydrogenase 641 H Medications Medications Current Medications Ondansetron HCl (Zofran Tab) 4 mg Q6H PRN PO NAUSEA AND/OR VOMITING; Start at 23:00 Nitroglycerin (Nitroglycerin (Sl Tab) 0.4 Mg) 1 tab Q5M PRN SL CHEST PAIN; Start 04/24/17 at 23:00 Docusate Sodium (Colace) 100 mg Q12H PRN PO CONSTIPATION; Start 04/24/17 at 23 :00 Bisacodyl (Dulcolax) 5 mg DAILY PRN PO CONSTIPATION; Start 04/24/17 at 23:00 Atorvastatin Calcium (Lipitor) 80 mg QHS PO Last administered on 05/13/17 21: 06; Admin Dose 80 MG; Start 04/25/17 at 21:00 Ergocalciferol (Drisdol) 50,000 unit Mo@09 PO Last administered on 05/13/17 09:40; Admin Dose 50,000 UNIT; Start 04/24/17 at 23:00 Ferrous Sulfate (Ferrous Sulfate (Ec)) 325 mg DAILY PO Last administered on 08:40; Admin Dose 325 MG; Start 04/25/17 at 09:00 Multivit/Ca Carb/ B Cmplx/FA/Prenat (Isabel-Brenda) 1 tab DAILY PO Last administered on 05/14/17 08:40; Admin Dose 1 TAB; Start 04/25/17 at 09:00 Pantoprazole (Protonix Tab) 40 mg DAILY@06 PO Last administered on 05/14/17 05:56; Admin Dose 40 MG; Start 04/25/17 at 06:00 Guaifenesin/ Dextromethorphan (Mucinex Dm) 1 tab BID PO Last administered on 08:40; Admin Dose 1 TAB; Start 04/25/17 at 03:15 Diagnostic Test (Pha) (Accu-Chek) 1 ea 02 XX Last administered on 05/13/17 02 :15; Admin Dose 1 EA; Start 04/26/17 at 02:00 Citric Acid/ Sodium Citrate (Bicitra) 30 ml TID PO Last administered on 12:22; Admin Dose 30 ML; Start 04/25/17 at 13:00 Aspirin (Aspirin) 81 mg DAILY PO Last administered on 04/30/17 10:05; Admin Dose 81 MG; Start 04/25/17 at 12:00; Status Future Hold Heparin Sodium (Porcine) (Heparin (5000 Units/0.5 ml)) 5,000 unit BID SC Last administered on 05/08/17 09:02; Admin Dose 5,000 UNIT; Start 04/26/17 at 09:00 ; Status Future Hold Miscellaneous Information 1 ea NOTE XX Last administered on 04/30/17 17:45; Admin Dose 1 EA; Start 04/25/17 at 12:00 Glucose (Glutose) 15 gm Q15M PRN PO DECREASED GLUCOSE; Start 04/25/17 at 12:00 Glucose (Glutose) 22.5 gm Q15M PRN PO DECREASED GLUCOSE; Start 04/25/17 at 12: 00 Dextrose (D50w Syringe) 25 ml Q15M PRN IV DECREASED GLUCOSE Last administered on 05/08/17 16:08; Admin Dose 25 ML; Start 04/25/17 at 12:00 Dextrose (D50w Syringe) 50 ml Q15M PRN IV DECREASED GLUCOSE Last administered on 05/09/17 00:39; Admin Dose 50 ML; Start 04/25/17 at 12:00 Glucagon (Glucagen) 1 mg Q15M PRN IM DECREASED GLUCOSE; Start 04/25/17 at 12: 00 Glucose (Glutose) 15 gm Q15M PRN BUCCAL DECREASED GLUCOSE; Start 04/25/17 at 12:00 Furosemide (Lasix) 20 mg BID IV Last administered on 05/14/17 08:41; Admin Dose 20 MG; Start 04/26/17 at 09:00 Fish Oil (Fish Oil) 2,000 mg BID PO Last administered on 05/14/17 08:39; Admin Dose 2,000 MG; Start 04/27/17 at 21:00 EZETIMIBE (Zetia) 10 mg DAILY PO Last administered on 05/14/17 08:40; Admin Dose 10 MG; Start 04/28/17 at 09:00 Morphine Sulfate (morphine) 2 mg Q4H PRN IV Pain Last administered on 10:24; Admin Dose 2 MG; Start 04/28/17 at 09:00 Linagliptin (Tradjenta) 5 mg DAILY PO Last administered on 05/14/17 08:40; Admin Dose 5 MG; Start 04/28/17 at 12:00 Tiotropium [place] (Spiriva) 1 inh DAILY INH Last administered on 05/14/17 08 :41; Admin Dose 1 INH; Start 04/30/17 at 13:30 Salmeterol Xinafoate/ Fluticasone (Advair 250/50 Diskus) 1 inh BID INH Last administered on 05/14/17 08:38; Admin Dose 1 INH; Start 04/30/17 at 21:00 Amlodipine Besylate (Norvasc) 5 mg BID PO Last administered on 05/14/17 08:40 ; Admin Dose 5 MG; Start 05/03/17 at 21:00 Carvedilol (Coreg) 3.125 mg BID PO Last administered on 05/14/17 08:39; Admin Dose 3.125 MG; Start 05/04/17 at 09:00 Epoetin Jero (Epogen (Esrd)) 6,000 units TuThSa@17 SC Last administered on 17:12; Admin Dose 6,000 UNITS; Start 05/11/17 at 17:00 Insulin Glargine (Lantus) 25 unit BID SC Last administered on 05/14/17 08:27 ; Admin Dose 25 UNIT; Start 05/12/17 at 21:00 Folic Acid (Folic Acid) 1 mg DAILY PO Last administered on 05/14/17 08:40; Admin Dose 1 MG; Start 05/13/17 at 20:30 Cyanocobalamin (Vitamin B12 Inj) 1,000 mcg ONCE ONCE IM ; Start 05/14/17 at 17 :30; Stop 05/14/17 at 17:31; Status UNWILLIAM RAY MD May 14, 2017 17:48
[2017-05-14] MEDS ORDERED: CYANOCOBALAMIN 1000 MCG INJ IM ONE (20:00)
--- NOTE | 2017-05-14 20:33 | CONS ---
Date/Time of Note Date/Time of Note DATE: 05/14/17 TIME: 20:31 Assessment/Plan Assessment/Plan Additional Assessment/Plan 1. 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 Acute hyperkalemia due to TROY on CKD - resolved after pt gets started on HD 4. Metabolic acidosis due to worsenign renal failure- resolved after pt gets started on HD 5. H/ CAD S/p previous coronary angiogram as per patient 6. Hypertension 7. Type II DM 8. Hyperlipidemia 9. Acute NSETMI due to CHF 10. severe anemia despite getting PRBC Plan : hepatitis C antibody positive, Hepatitis A antibody positive EGD showed distal esophagitis, Plan for HD tomorrow will keep him on MWF Schedule, Hb remains low around 8.2- on Epogen 6000 units TIW for anemia , Hematology consulted on the case. HD placement confirmed at [facility] - [facility] [place] is MWF will follow up Consultation Date/Type/Reason Admit Date/Time Apr 24, 2017 at 19:05 Initial Consult Date 04/25/17 Type of Consultation: NEPHROLOGY Referring Provider: NANY PRIEST NP 24 HR Interval Summary Free Text/Dictation Hb 8.2, plan for HD tomorrow Exam/Review of Systems Vital Signs Vitals Vital Signs Date Time Temp Pulse Resp B/P Pulse Ox O2 Delivery O2 Flow Rate FiO2 05/14/17 20:13 98.4 62 18 141/63 96 05/14/17 17:01 21 Intake and Output 05/13/17 05/13/17 05/14/17 15:00 23:00 07:00 Intake Total 500 ml 700 ml 120 ml Output Total 3000 ml Balance -2500 ml 700 ml 120 ml Exam Constitutional: alert Psych: no complaints Head: normocephalic Eyes: nl conjunctiva ENMT: nl external ears & nose Neck: non-tender, supple Respiratory: clear to auscultation, diminished breath sounds, normal air movement Cardiovascular: nl pulses, regular rate and rhythm Musculoskeletal: nl extremities to inspection Extremities: normal pulses 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: CLINIC CLERK II-XII intact, nl mental status Results Result Diagram: 05/14/1791005/13/17 0627 Results 24 hrs Laboratory Tests Test 05/13/17 21:04 05/14/17 08:13 05/14/17 09:11 05/14/17 12:20 Bedside Glucose 114 171 193 White Blood Count 5.8 Red Blood Count 2.60 L Hemoglobin 8.2 L Hematocrit 24.8 L Mean Corpuscular Volume 95.4 Mean Corpuscular Hemoglobin 31.5 Mean Corpuscular Hemoglobin Concent 33.1 Red Cell Distribution Width 17.2 H Platelet Count 222 # Mean Platelet Volume 12.2 H Nucleated Red Blood Cells % 0.7 H Nucleated Red Blood Cells # 0.1 H Absolute Reticulocyte Count 0.019 L Percent Reticulocyte Count 5.8 H Lactate Dehydrogenase 641 H Test 05/14/17 17:41 Bedside Glucose 173 Medications Medications Current Medications Ondansetron HCl (Zofran Tab) 4 mg Q6H PRN PO NAUSEA AND/OR VOMITING; Start at 23:00 Nitroglycerin (Nitroglycerin (Sl Tab) 0.4 Mg) 1 tab Q5M PRN SL CHEST PAIN; Start 04/24/17 at 23:00 Docusate Sodium (Colace) 100 mg Q12H PRN PO CONSTIPATION; Start 04/24/17 at 23 :00 Bisacodyl (Dulcolax) 5 mg DAILY PRN PO CONSTIPATION; Start 04/24/17 at 23:00 Atorvastatin Calcium (Lipitor) 80 mg QHS PO Last administered on 05/13/17 21: 06; Admin Dose 80 MG; Start 04/25/17 at 21:00 Ergocalciferol (Drisdol) 50,000 unit Mo@09 PO Last administered on 05/13/17 09:40; Admin Dose 50,000 UNIT; Start 04/24/17 at 23:00 Ferrous Sulfate (Ferrous Sulfate (Ec)) 325 mg DAILY PO Last administered on 08:40; Admin Dose 325 MG; Start 04/25/17 at 09:00 Multivit/Ca Carb/ B Cmplx/FA/Prenat (Isabel-Brenda) 1 tab DAILY PO Last administered on 05/14/17 08:40; Admin Dose 1 TAB; Start 04/25/17 at 09:00 Pantoprazole (Protonix Tab) 40 mg DAILY@06 PO Last administered on 05/14/17 05:56; Admin Dose 40 MG; Start 04/25/17 at 06:00 Guaifenesin/ Dextromethorphan (Mucinex Dm) 1 tab BID PO Last administered on 08:40; Admin Dose 1 TAB; Start 04/25/17 at 03:15 Diagnostic Test (Pha) (Accu-Chek) 1 ea 02 XX Last administered on 05/13/17 02 :15; Admin Dose 1 EA; Start 04/26/17 at 02:00 Citric Acid/ Sodium Citrate (Bicitra) 30 ml TID PO Last administered on 12:22; Admin Dose 30 ML; Start 04/25/17 at 13:00 Aspirin (Aspirin) 81 mg DAILY PO Last administered on 04/30/17 10:05; Admin Dose 81 MG; Start 04/25/17 at 12:00; Status Future Hold Heparin Sodium (Porcine) (Heparin (5000 Units/0.5 ml)) 5,000 unit BID SC Last administered on 05/08/17 09:02; Admin Dose 5,000 UNIT; Start 04/26/17 at 09:00 ; Status Future Hold Miscellaneous Information 1 ea NOTE XX Last administered on 04/30/17 17:45; Admin Dose 1 EA; Start 04/25/17 at 12:00 Glucose (Glutose) 15 gm Q15M PRN PO DECREASED GLUCOSE; Start 04/25/17 at 12:00 Glucose (Glutose) 22.5 gm Q15M PRN PO DECREASED GLUCOSE; Start 04/25/17 at 12: 00 Dextrose (D50w Syringe) 25 ml Q15M PRN IV DECREASED GLUCOSE Last administered on 05/08/17 16:08; Admin Dose 25 ML; Start 04/25/17 at 12:00 Dextrose (D50w Syringe) 50 ml Q15M PRN IV DECREASED GLUCOSE Last administered on 05/09/17 00:39; Admin Dose 50 ML; Start 04/25/17 at 12:00 Glucagon (Glucagen) 1 mg Q15M PRN IM DECREASED GLUCOSE; Start 04/25/17 at 12: 00 Glucose (Glutose) 15 gm Q15M PRN BUCCAL DECREASED GLUCOSE; Start 04/25/17 at 12:00 Furosemide (Lasix) 20 mg BID IV Last administered on 05/14/17 08:41; Admin Dose 20 MG; Start 04/26/17 at 09:00 Fish Oil (Fish Oil) 2,000 mg BID PO Last administered on 05/14/17 08:39; Admin Dose 2,000 MG; Start 04/27/17 at 21:00 EZETIMIBE (Zetia) 10 mg DAILY PO Last administered on 05/14/17 08:40; Admin Dose 10 MG; Start 04/28/17 at 09:00 Morphine Sulfate (morphine) 2 mg Q4H PRN IV Pain Last administered on 10:24; Admin Dose 2 MG; Start 04/28/17 at 09:00 Linagliptin (Tradjenta) 5 mg DAILY PO Last administered on 05/14/17 08:40; Admin Dose 5 MG; Start 04/28/17 at 12:00 Tiotropium [place] (Spiriva) 1 inh DAILY INH Last administered on 05/14/17 08 :41; Admin Dose 1 INH; Start 04/30/17 at 13:30 Salmeterol Xinafoate/ Fluticasone (Advair 250/50 Diskus) 1 inh BID INH Last administered on 05/14/17 08:38; Admin Dose 1 INH; Start 04/30/17 at 21:00 Amlodipine Besylate (Norvasc) 5 mg BID PO Last administered on 05/14/17 08:40 ; Admin Dose 5 MG; Start 05/03/17 at 21:00 Carvedilol (Coreg) 3.125 mg BID PO Last administered on 05/14/17 08:39; Admin Dose 3.125 MG; Start 05/04/17 at 09:00 Epoetin Jero (Epogen (Esrd)) 6,000 units TuThSa@17 SC Last administered on 17:43; Admin Dose 6,000 UNITS; Start 05/11/17 at 17:00 Insulin Glargine (Lantus) 25 unit BID SC Last administered on 05/14/17 08:27 ; Admin Dose 25 UNIT; Start 05/12/17 at 21:00 Folic Acid (Folic Acid) 1 mg DAILY PO Last administered on 05/14/17 08:40; Admin Dose 1 MG; Start 05/13/17 at 20:30 RAQUEL MCDOWELL MD May 14, 2017 20:33
[2017-05-14] MEDS: ATORVASTATIN 80 MG TAB PO SCH (20:52)
[2017-05-14] MEDS ORDERED: ZOLPIDEM 5 MG TAB PO PRN (21:00)
[2017-05-14] MEDS: ZOLPIDEM 5 MG TAB PO PRN (21:41)
[2017-05-14 23:27] LABS: ALBUMIN 3.1 g/dL (3.8-4.8)
[2017-05-15] VITALS (19 sets, daily range): BP systolic 112–151; BP diastolic 47–78; PULSE 53–75; RESP 18–20
[2017-05-15] MEDS: ALBUTEROL/IPRATROPIUM (NEB) 3 ML AMP HHN SCH ×6 (00:45→20:06)
[2017-05-15] MEDS: ACCU-CHEK XX SCH (02:00)
[2017-05-15] MEDS: PANTOPRAZOLE (EC) 40 MG TAB PO SCH (06:25)
[2017-05-15 08:18] LABS: ALBUMIN 2.9 g/dl (3.3-4.9); ALBUMIN/GLOBULIN RATIO 0.93; BILIRUBIN,INDIRECT 0.7 mg/dl (0-1.1); BILIRUBIN,TOTAL 0.7 mg/dl (0.2-1.3); CALCIUM 8.9 mg/dl (8.4-10.2); CREATININE 4.08 mg/dl (0.61-1.24); POTASSIUM 4.3 mmol/L (3.5-5.1)
[2017-05-15] MEDS: INSULIN ASPART [NOVOLOG] 3 ML PEN SC SCH ×7 (09:26→20:34)
[2017-05-15] MEDS: EZETIMIBE 10 MG TAB PO SCH (09:31)
[2017-05-15] MEDS: GUAIFENESIN/DM (SR) TAB PO SCH ×2 (09:32→20:44)
[2017-05-15] MEDS: FISH OIL 1,000 MG CAP PO SCH ×2 (09:32→20:43)
[2017-05-15] MEDS: LINAGLIPTIN 5 MG TABLET PO SCH (09:32)
[2017-05-15] MEDS: CITRIC ACID/SODIUM CITRATE 15 ML CUP PO SCH ×3 (09:32→20:42)
[2017-05-15] MEDS: FERROUS SULFATE (EC) 325 MG TAB PO SCH (09:32)
[2017-05-15] MEDS: FOLIC ACID 1 MG TAB PO SCH (09:32)
[2017-05-15] MEDS: AMLODIPINE 5 MG TAB PO SCH ×2 (09:33→20:44)
[2017-05-15 09:34] LABS: BASOPHIL # 0.1 10^3/ul (0.0-0.1); BASOPHILS % 0.9 % (0.0-2.0); EOSINOPHILS # 0.5 10^3/ul (0.0-0.5); EOSINOPHILS % 6.8 % (0.0-7.0); HEMATOCRIT 22.7 % (42.0-52.0); LYMPHOCYTES # 1.6 10^3/ul (0.8-2.9); LYMPHOCYTES % 20.8 % (15.0-51.0); MEAN CORPUSCULAR HEMOGLOBIN 31.5 pg (29.0-33.0); MEAN CORPUSCULAR HGB CONC 33.5 g/dl (32.0-37.0); MEAN CORPUSCULAR VOLUME 94.2 fl (82.0-101.0); MEAN PLATELET VOLUME 12.3 fl (7.4-10.4); MONOCYTE # 0.7 10^3/ul (0.3-0.9); MONOCYTES % 8.8 % (0.0-11.0); NEUTROPHIL # 4.7 10^3/ul (1.6-7.5); NEUTROPHILS % 62.2 % (39.0-77.0); RED BLOOD COUNT 2.41 10^6/ul (4.70-6.10); RED CELL DISTRIBUTION WIDTH 17.2 % (11.5-14.5); RETICULOCYTE COUNT % 6.2 % (0.5-1.5)
[2017-05-15] MEDS: SALMETEROL/FLUTICASONE 250/50 INHA INH SCH ×2 (09:34→20:42)
[2017-05-15] MEDS: FUROSEMIDE 20 MG TAB PO SCH (09:34)
[2017-05-15 09:36] LABS: PLATELET COUNT 194 10^3/UL (140-415); WHITE BLOOD COUNT 5.9 10^3/ul (4.8-10.8)
[2017-05-15 09:37] LABS: HEMOGLOBIN 7.6 g/dl (14.0-18.0)
[2017-05-15] MEDS: INSULIN GLARGINE [LANtus] 3 ML PEN SC SCH ×2 (09:42→20:33)
[2017-05-15] MEDS: MULTIVIT/CA CARB/B CMPLX/FA TAB PO SCH (09:43)
[2017-05-15] MEDS: TIOTROPIUM 18 MCG CAPSULE INHA DEV INH SCH (09:54)
--- NOTE | 2017-05-15 12:23 | CONS ---
Date/Time of Note Date/Time of Note DATE: 05/15/17 TIME: :17 Assessment/Plan Assessment/Plan Chief Complaint/Hosp Course Pleasant Polish gentleman with his family present in the room reporting a 30 year history of diabetes mellitus type 2. He had been on oral agent therapy but as his kidneys declined he was transitioned over to a multiple daily injection regimen using Lantus and NovoLog. He intermittently takes full dose Januvia 100 mg despite his renal dysfunction Problems: (1) Diabetes mellitus type 2 in obese Status: Chronic Comment: aDEQUATE CONTROL WITHOUT HYPOGLYCEMIA. wOULD NOT ADJUST/MISTI DOSE AT THIS TIME. fROM THIS STANDPOINT COULD BE DISCHARGED (2) End stage renal disease on dialysis due to type 2 diabetes mellitus Status: Chronic Comment: As per nephrology, outpatient dialsys is arranged (3) COPD (chronic obstructive pulmonary disease) Status: Chronic Comment: Good control and from this view could be discharged Qualifiers: COPD type: emphysema Emphysema type: unspecified Qualified Code: J43.9 - Pulmonary emphysema, unspecified emphysema type (4) Hemolytic anemia Status: Acute Comment: His numbers are dropping again. 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 (5) Essential hypertension Status: Chronic Comment: Adequate control (6) Diastolic dysfunction Status: Chronic Comment: On beta blockade Consultation Date/Type/Reason Admit Date/Time Apr 24, 2017 at 19:05 Initial Consult Date 04/27/17 Type of Consultation: Endocrinology Reason for Consultation Dm2 with ESRDz and complications also with HEMOLYTIC ANEMIA Referring Provider: NANY PRIEST NP 24 HR Interval Summary Constitutional: no complaints Detailed Summary ENT: no complaints Respiratory: no complaints Gastrointestinal: no complaints, other (NO MELENA, NO BRBPR) Exam/Review of Systems Vital Signs Vitals Vital Signs Date Time Temp Pulse Resp B/P Pulse Ox O2 Delivery O2 Flow Rate FiO2 05/15/17 11:33 98.2 60 20 131/60 96 05/15/17 08:17 21 Intake and Output 05/14/17 05/14/17 05/15/17 15:00 23:00 07:00 Intake Total 700 ml 120 ml Balance 700 ml 120 ml Exam Constitutional: alert, oriented Respiratory: clear to auscultation, normal air movement Cardiovascular: nl pulses, regular rate and rhythm Gastrointestinal: nl liver, spleen, non-tender, soft Results Result Diagram: 05/15/17 0658 05/15/17 0658 Results 24 hrs Laboratory Tests Test 05/14/17 12:20 05/14/17 17:41 05/14/17 20:50 05/15/17 06:58 Bedside Glucose 193 173 119 White Blood Count 5.9 Red Blood Count 2.41 L Hemoglobin 7.6 L Hematocrit 22.7 L Mean Corpuscular Volume 94.2 Mean Corpuscular Hemoglobin 31.5 Mean Corpuscular Hemoglobin Concent 33.5 Red Cell Distribution Width 17.2 H Platelet Count 194 Mean Platelet Volume 12.3 H Neutrophils % 62.2 Lymphocytes % 20.8 Monocytes % 8.8 Eosinophils % 6.8 Basophils % 0.9 Nucleated Red Blood Cells % 0.0 Neutrophils # 4.7 Lymphocytes # 1.6 Monocytes # 0.7 Eosinophils # 0.5 Basophils # 0.1 Nucleated Red Blood Cells # 0.0 Absolute Reticulocyte Count 0.150 H Percent Reticulocyte Count 6.2 H Sodium Level 137 Potassium Level 4.3 Chloride Level 97 Carbon Dioxide Level 29 Anion Gap 15 Blood Urea Nitrogen 47 H Creatinine 4.08 H Glucose Level 155 Calcium Level 8.9 Total Bilirubin 0.7 Direct Bilirubin 0.00 Indirect Bilirubin 0.7 Aspartate Amino Transf (AST/SGOT) 24 Alanine Aminotransferase (ALT/SGPT) 36 Alkaline Phosphatase 53 Lactate Dehydrogenase 851 H Total Protein 6.0 L Albumin 2.9 L Globulin 3.10 Albumin/Globulin Ratio 0.93 Test 05/15/17 07:44 05/15/17 09:16 Bedside Glucose 190 257 H Medications Medications Current Medications Ondansetron HCl (Zofran Tab) 4 mg Q6H PRN PO NAUSEA AND/OR VOMITING; Start at 23:00 Nitroglycerin (Nitroglycerin (Sl Tab) 0.4 Mg) 1 tab Q5M PRN SL CHEST PAIN; Start 04/24/17 at 23:00 Docusate Sodium (Colace) 100 mg Q12H PRN PO CONSTIPATION; Start 04/24/17 at 23 :00 Bisacodyl (Dulcolax) 5 mg DAILY PRN PO CONSTIPATION; Start 04/24/17 at 23:00 Atorvastatin Calcium (Lipitor) 80 mg QHS PO Last administered on 05/14/17t 20: 52; Admin Dose 80 MG; Start 04/25/17 at 21:00 Ergocalciferol (Drisdol) 50,000 unit Mo@09 PO Last administered on 05/13/17 09:40; Admin Dose 50,000 UNIT; Start 04/24/17 at 23:00 Ferrous Sulfate (Ferrous Sulfate (Ec)) 325 mg DAILY PO Last administered on 09:32; Admin Dose 325 MG; Start 04/25/17 at 09:00 Multivit/Ca Carb/ B Cmplx/FA/Prenat (Isabel-Brenda) 1 tab DAILY PO Last administered on 05/15/17 09:43; Admin Dose 1 TAB; Start 04/25/17 at 09:00 Pantoprazole (Protonix Tab) 40 mg DAILY@06 PO Last administered on 05/15/17 06:25; Admin Dose 40 MG; Start 04/25/17 at 06:00 Guaifenesin/ Dextromethorphan (Mucinex Dm) 1 tab BID PO Last administered on 09:32; Admin Dose 1 TAB; Start 04/25/17 at 03:15 Diagnostic Test (Pha) (Accu-Chek) 1 ea 02 XX Last administered on 05/13/17 02 :15; Admin Dose 1 EA; Start 04/26/17 at 02:00 Citric Acid/ Sodium Citrate (Bicitra) 30 ml TID PO Last administered on 09:32; Admin Dose 30 ML; Start 04/25/17 at 13:00 Aspirin (Aspirin) 81 mg DAILY PO Last administered on 04/30/17 10:05; Admin Dose 81 MG; Start 04/25/17 at 12:00; Status Future Hold Heparin Sodium (Porcine) (Heparin (5000 Units/0.5 ml)) 5,000 unit BID SC Last administered on 05/08/17 09:02; Admin Dose 5,000 UNIT; Start 04/26/17 at 09:00 ; Status Future Hold Miscellaneous Information 1 ea NOTE XX Last administered on 04/30/17 17:45; Admin Dose 1 EA; Start 04/25/17 at 12:00 Glucose (Glutose) 15 gm Q15M PRN PO DECREASED GLUCOSE; Start 04/25/17 at 12:00 Glucose (Glutose) 22.5 gm Q15M PRN PO DECREASED GLUCOSE; Start 04/25/17 at 12: 00 Dextrose (D50w Syringe) 25 ml Q15M PRN IV DECREASED GLUCOSE Last administered on 05/08/17 16:08; Admin Dose 25 ML; Start 04/25/17 at 12:00 Dextrose (D50w Syringe) 50 ml Q15M PRN IV DECREASED GLUCOSE Last administered on 05/09/17 00:39; Admin Dose 50 ML; Start 04/25/17 at 12:00 Glucagon (Glucagen) 1 mg Q15M PRN IM DECREASED GLUCOSE; Start 04/25/17 at 12: 00 Glucose (Glutose) 15 gm Q15M PRN BUCCAL DECREASED GLUCOSE; Start 04/25/17 at 12:00 Fish Oil (Fish Oil) 2,000 mg BID PO Last administered on 05/15/17 09:32; Admin Dose 2,000 MG; Start 04/27/17 at 21:00 EZETIMIBE (Zetia) 10 mg DAILY PO Last administered on 05/15/17 09:31; Admin Dose 10 MG; Start 04/28/17 at 09:00 Morphine Sulfate (morphine) 2 mg Q4H PRN IV Pain Last administered on 10:24; Admin Dose 2 MG; Start 04/28/17 at 09:00 Linagliptin (Tradjenta) 5 mg DAILY PO Last administered on 05/15/17 09:32; Admin Dose 5 MG; Start 04/28/17 at 12:00 Tiotropium [place] (Spiriva) 1 inh DAILY INH Last administered on 05/15/17 09 :54; Admin Dose 1 INH; Start 04/30/17 at 13:30 Salmeterol Xinafoate/ Fluticasone (Advair 250/50 Diskus) 1 inh BID INH Last administered on 05/15/17 09:34; Admin Dose 1 INH; Start 04/30/17 at 21:00 Amlodipine Besylate (Norvasc) 5 mg BID PO Last administered on 05/15/17 09:33 ; Admin Dose 5 MG; Start 05/03/17 at 21:00 Carvedilol (Coreg) 3.125 mg BID PO Last administered on 05/15/17 09:33; Admin Dose 3.125 MG; Start 05/04/17 at 09:00 Epoetin Jero (Epogen (Esrd)) 6,000 units TuThSa@17 SC Last administered on 17:43; Admin Dose 6,000 UNITS; Start 05/11/17 at 17:00 Insulin Glargine (Lantus) 25 unit BID SC Last administered on 05/15/17 09:42 ; Admin Dose 25 UNIT; Start 05/12/17 at 21:00 Folic Acid (Folic Acid) 1 mg DAILY PO Last administered on 05/15/17 09:32; Admin Dose 1 MG; Start 05/13/17 at 20:30 Zolpidem Tartrate (Ambien) 5 mg HS PRN PO INSOMNIA Last administered on 21:41; Admin Dose 5 MG; Start 05/14/17 at 21:30 Furosemide (Lasix) 20 mg DAILY PO Last administered on 05/15/17 09:34; Admin Dose 20 MG; Start 05/15/17 at 09:00 MARA GRAYSON MD May 15, 2017 12:23
--- NOTE | 2017-05-15 12:32 | CONS ---
Date/Time of Note Date/Time of Note DATE: 05/15/17 TIME: 12:31 Assessment/Plan Assessment/Plan Additional Assessment/Plan Volume overload Acute kidney injury with history of CKD, started on hemodialysis Acute decompensated diastolic congestive heart failure Diabetes CAD with history of PCI over 10 years ago Hypertension Dyslipidemia History of DVT, previously on anticoagulation Acute blood loss anemia status post blood transfusion Intermittent Mobitz type I, asymptomatic - Aspirin and anticoagulation have been stopped secondary to recurrent anemia requiring blood transfusion. Patient undergoing workup by hematology. Fluid management via hemodialysis as per our nephrology colleagues. Blood pressure trend overall stable. Continue statin therapy if no contraindication. Consultation Date/Type/Reason Admit Date/Time Apr 24, 2017 at 19:05 Initial Consult Date 04/27/17 Type of Consultation: cv Referring Provider: NANY PRIEST TILE HELPER 24 HR Interval Summary Free Text/Dictation Feeling better, denies chest pain, shortness of breath. Walking with less fatigue Exam/Review of Systems Vital Signs Vitals Vital Signs Date Time Temp Pulse Resp B/P Pulse Ox O2 Delivery O2 Flow Rate FiO2 05/15/17 11:33 98.2 60 20 131/60 96 05/15/17 08:17 21 Intake and Output 05/14/17 05/14/17 05/15/17 15:00 23:00 07:00 Intake Total 700 ml 120 ml Balance 700 ml 120 ml Exam Sitting in chair, no apparent distress Constitutional: alert, oriented Head: normocephalic Respiratory: other (Coarse breath sounds bilaterally, no wheezing) Cardiovascular: other (S1-S2 heard), regular rate and rhythm Gastrointestinal: bowel sounds, non-tender, soft Extremities: edema Results Result Diagram: 05/15/17 0658 05/15/17 0658 Results 24 hrs Laboratory Tests Test 05/14/17 17:41 05/14/17 20:50 05/15/17 06:58 05/15/17 07:44 Bedside Glucose 173 119 190 White Blood Count 5.9 Red Blood Count 2.41 L Hemoglobin 7.6 L Hematocrit 22.7 L Mean Corpuscular Volume 94.2 Mean Corpuscular Hemoglobin 31.5 Mean Corpuscular Hemoglobin Concent 33.5 Red Cell Distribution Width 17.2 H Platelet Count 194 Mean Platelet Volume 12.3 H Neutrophils % 62.2 Lymphocytes % 20.8 Monocytes % 8.8 Eosinophils % 6.8 Basophils % 0.9 Nucleated Red Blood Cells % 0.0 Neutrophils # 4.7 Lymphocytes # 1.6 Monocytes # 0.7 Eosinophils # 0.5 Basophils # 0.1 Nucleated Red Blood Cells # 0.0 Absolute Reticulocyte Count 0.150 H Percent Reticulocyte Count 6.2 H Sodium Level 137 Potassium Level 4.3 Chloride Level 97 Carbon Dioxide Level 29 Anion Gap 15 Blood Urea Nitrogen 47 H Creatinine 4.08 H Glucose Level 155 Calcium Level 8.9 Total Bilirubin 0.7 Direct Bilirubin 0.00 Indirect Bilirubin 0.7 Aspartate Amino Transf (AST/SGOT) 24 Alanine Aminotransferase (ALT/SGPT) 36 Alkaline Phosphatase 53 Lactate Dehydrogenase 851 H Total Protein 6.0 L Albumin 2.9 L Globulin 3.10 Albumin/Globulin Ratio 0.93 Test 05/15/17 09:16 Bedside Glucose 257 H Medications Medications Current Medications Ondansetron HCl (Zofran Tab) 4 mg Q6H PRN PO NAUSEA AND/OR VOMITING; Start at 23:00 Nitroglycerin (Nitroglycerin (Sl Tab) 0.4 Mg) 1 tab Q5M PRN SL CHEST PAIN; Start 04/24/17 at 23:00 Docusate Sodium (Colace) 100 mg Q12H PRN PO CONSTIPATION; Start 04/24/17 at 23 :00 Bisacodyl (Dulcolax) 5 mg DAILY PRN PO CONSTIPATION; Start 04/24/17 at 23:00 Atorvastatin Calcium (Lipitor) 80 mg QHS PO Last administered on 05/14/17 20: 52; Admin Dose 80 MG; Start 04/25/17 at 21:00 Ergocalciferol (Drisdol) 50,000 unit Mo@09 PO Last administered on 05/13/17 09:40; Admin Dose 50,000 UNIT; Start 04/24/17 at 23:00 Ferrous Sulfate (Ferrous Sulfate (Ec)) 325 mg DAILY PO Last administered on 09:32; Admin Dose 325 MG; Start 04/25/17 at 09:00 Multivit/Ca Carb/ B Cmplx/FA/Prenat (Isabel-Brenda) 1 tab DAILY PO Last administered on 05/15/17 09:43; Admin Dose 1 TAB; Start 04/25/17 at 09:00 Pantoprazole (Protonix Tab) 40 mg DAILY@06 PO Last administered on 05/15/17 06:25; Admin Dose 40 MG; Start 04/25/17 at 06:00 Guaifenesin/ Dextromethorphan (Mucinex Dm) 1 tab BID PO Last administered on 09:32; Admin Dose 1 TAB; Start 04/25/17 at 03:15 Diagnostic Test (Pha) (Accu-Chek) 1 ea 02 XX Last administered on 05/13/17 02 :15; Admin Dose 1 EA; Start 04/26/17 at 02:00 Citric Acid/ Sodium Citrate (Bicitra) 30 ml TID PO Last administered on 09:32; Admin Dose 30 ML; Start 04/25/17 at 13:00 Aspirin (Aspirin) 81 mg DAILY PO Last administered on 04/30/17 10:05; Admin Dose 81 MG; Start 04/25/17 at 12:00; Status Future Hold Heparin Sodium (Porcine) (Heparin (5000 Units/0.5 ml)) 5,000 unit BID SC Last administered on 05/08/17 09:02; Admin Dose 5,000 UNIT; Start 04/26/17 at 09:00 ; Status Future Hold Miscellaneous Information 1 ea NOTE XX Last administered on 04/30/17 17:45; Admin Dose 1 EA; Start 04/25/17 at 12:00 Glucose (Glutose) 15 gm Q15M PRN PO DECREASED GLUCOSE; Start 04/25/17 at 12:00 Glucose (Glutose) 22.5 gm Q15M PRN PO DECREASED GLUCOSE; Start 04/25/17 at 12: 00 Dextrose (D50w Syringe) 25 ml Q15M PRN IV DECREASED GLUCOSE Last administered on 05/08/17 16:08; Admin Dose 25 ML; Start 04/25/17 at 12:00 Dextrose (D50w Syringe) 50 ml Q15M PRN IV DECREASED GLUCOSE Last administered on 05/09/17 00:39; Admin Dose 50 ML; Start 04/25/17 at 12:00 Glucagon (Glucagen) 1 mg Q15M PRN IM DECREASED GLUCOSE; Start 04/25/17 at 12: 00 Glucose (Glutose) 15 gm Q15M PRN BUCCAL DECREASED GLUCOSE; Start 04/25/17 at 12:00 Fish Oil (Fish Oil) 2,000 mg BID PO Last administered on 05/15/17 09:32; Admin Dose 2,000 MG; Start 04/27/17 at 21:00 EZETIMIBE (Zetia) 10 mg DAILY PO Last administered on 05/15/17 09:31; Admin Dose 10 MG; Start 04/28/17 at 09:00 Morphine Sulfate (morphine) 2 mg Q4H PRN IV Pain Last administered on 10:24; Admin Dose 2 MG; Start 04/28/17 at 09:00 Linagliptin (Tradjenta) 5 mg DAILY PO Last administered on 05/15/17 09:32; Admin Dose 5 MG; Start 04/28/17 at 12:00 Tiotropium [place] (Spiriva) 1 inh DAILY INH Last administered on 05/15/17 09 :54; Admin Dose 1 INH; Start 04/30/17 at 13:30 Salmeterol Xinafoate/ Fluticasone (Advair 250/50 Diskus) 1 inh BID INH Last administered on 05/15/17 09:34; Admin Dose 1 INH; Start 04/30/17 at 21:00 Amlodipine Besylate (Norvasc) 5 mg BID PO Last administered on 05/15/17 09:33 ; Admin Dose 5 MG; Start 05/03/17 at 21:00 Carvedilol (Coreg) 3.125 mg BID PO Last administered on 05/15/17 09:33; Admin Dose 3.125 MG; Start 05/04/17 at 09:00 Epoetin Jero (Epogen (Esrd)) 6,000 units TuThSa@17 SC Last administered on 17:43; Admin Dose 6,000 UNITS; Start 05/11/17 at 17:00 Insulin Glargine (Lantus) 25 unit BID SC Last administered on 05/15/17 09:42 ; Admin Dose 25 UNIT; Start 05/12/17 at 21:00 Folic Acid (Folic Acid) 1 mg DAILY PO Last administered on 05/15/17 09:32; Admin Dose 1 MG; Start 05/13/17 at 20:30 Zolpidem Tartrate (Ambien) 5 mg HS PRN PO INSOMNIA Last administered on 21:41; Admin Dose 5 MG; Start 05/14/17 at 21:30 Furosemide (Lasix) 20 mg DAILY PO Last administered on 05/15/17t 09:34; Admin Dose 20 MG; Start 05/15/17 at 09:00 Dell De La Torre DO May 15, 2017 12:32
--- NOTE | 2017-05-15 14:50 | PN ---
DATE: 05/15/2017 SUBJECTIVE: Patient is basically unchanged. He is not experiencing any new complaints of shortness of breath or cough. He has had no new chest pain. No complaints of orthopnea or PND. No shaking chills. OBJECTIVE: VITAL SIGNS: Temperature 98.2, pulse 60 per minute, respirations 20, blood pressure 131/60, pulse o ximetry 90%. SKIN: Pale. No ecchymoses, no petechiae or rashes. HEENT: Normocephalic. No evidence of trauma. The pupils are equal, round, react to light and acco mmodation. Sclerae are nonicteric. Oral mucosa is moist without lesions. Tongue is well papillate d. The conjunctiva and oral mucosa are pale. No mucosal lesions. CHEST: Decreased breath sounds in both bases. No rhonchi, wheezes, rales or rubs. There is an int ernal jugular Perm-A-Cath in place. HEART: Sinus tachycardia. Vital signs are normal sinus rhythm, no S3, S4 or murmurs. No rubs. NODES: No palpable lymphadenopathy. ABDOMEN: Obese without masses or ascites. EXTREMITIES: Good range of motion. No clubbing or cyanosis. One plus bilateral pretibial edema. No palpable cords or Homans sign. NEUROLOGIC: Normal. LABORATORY DATA: White count 5900 with an absolute neutrophil count of 4700 and absolute lymphocyte count of 1600, hemoglobin 7.6, hematocrit 22.7, MCV 94.7 and platelet count 194,000. The reticuloc yte count is 6.2%. Chemistries: Sodium 137, potassium 4.3, BUN 47, creatinine 4.05, total bilirubin 0.7 and indirect b ilirubin 0.7, LDH is 851. Haptoglobin on 05/14/2017 was 132. Serum immunofixation does show a faint IgG lambda monoclonal immunoglobulin. A urine immunofixation also shows a faint free lambda light chain. As noted previously, quantitative immunoglobulins are all normal. SHAILESH is negative. ASSESSMENT: 1. Acute on chronic renal failure. 2. Cold agglutinin hemolytic anemia. The patient remains anemic in spite of the fact that other c hemical evidence of hemolysis seems to have improved. The patient no longer has an indirect hyperbi lirubinemia. LDH is still elevated but haptoglobin has returned to normal. It is possible that the results of the CBC are erroneous if it is not done on a heated specimen. Th is patient does have a high titer cold agglutinin which may cause an artifactual lowering of hemoglo bin and hematocrit on the automated equipment. We will request that a CBC be repeated after it has been warmed. We will also repeat a haptoglobin, LDH, bilirubin total and direct, retic count and CBC. If the patient's hemoglobin is actually 7.6 in spite of the fact that there is no more hemolysis, it may be necessary to perform a bone marrow. The serologies for mycoplasma pneumoniae are still pending. We will request for mycoplasma as well. There does seem to be a small IgG lambda paraprotein. We will request serum for free quantitative k appa and lambda light chains and ratio. Dictated By: QUIANA MOULTON MD SR/NTS Conf#: [id number] DID#: [id number]
--- NOTE | 2017-05-15 15:47 | PN ---
Date/Time of Note Date/Time of Note DATE: 05/15/17 TIME: 15:45 Assessment/Plan VTE Prophylaxis VTE Prophylaxis Intervention: heparin Lines/Catheters IV [facility] Mid Line Urinary Cath still in place: No Assessment/Plan Chief Complaint/Hosp Course Assessment and plan 1. Acute respiratory failure secondary to fluid overload. Improved status post dialysis. monitor for now. O2 as needed. 2. Intermittent Mobitz type I block. A symptomatically present. Fruit Packer Face And Fill following. Monitor on telemetry. 3. Acute on chronic CHF. Noted with diastolic dysfunction. On dialysis. Stable at present. 4. Moderate distal esophagitis. Continue PPI medication. 5. Pulmonary hypertension. Noted with PA systolic pressure of 44 mmHg. Off O2. Tolerating well. Monitor for now. 6. History of CAD. Patient is status post PTCA. Of note aspirin on hold due to current anemia. 7. Dyslipidemia. Continue on statin medication. 8. Metabolic acidosis. Secondary to renal dysfunction. Bicitra per alliance director. 9. Type 2 diabetes. On insulin regimen. Followed by alliance director. Adjust as needed. 10. Essential hypertension. Continue antihypertensives and adjust needed. 11. DVT of the left popliteal vein. Anticoagulation on hold secondary to anemia. 12. Acute on chronic kidney disease. On dialysis now. Monitor I's. 13. Anemia. Labile at present. Dental Laboratory Assistant to follow. Disposition and plan: continue anemia workup per patrol police sergeant. H&H remains stable. transfuse blood products as needed. Discussed plan of care with Dr. Pelayo Problems: Subjective 24 Hr Interval Summary Free Text/Dictation no s/s of distress. resting at this time. Exam/Review of Systems Vital Signs Vitals Vital Signs Date Time Temp Pulse Resp B/P Pulse Ox O2 Delivery O2 Flow Rate FiO2 05/15/17 12:04 62 05/15/17 11:33 98.2 20 131/60 96 05/15/17 08:17 21 Intake and Output 05/14/17 05/14/17 05/15/17 15:00 23:00 07:00 Intake Total 700 ml 120 ml Balance 700 ml 120 ml Exam Constitutional: alert, oriented Psych: no complaints Head: normocephalic Neck: non-tender, supple Respiratory: clear to auscultation, normal air movement Cardiovascular: regular rate and rhythm Gastrointestinal: non-tender, soft Musculoskeletal: nl extremities to inspection 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: INFORMATION SECURITY RISK ANALYST II-XII intact, nl mental status, nl speech Skin: nl turgor Results Result Diagram: 05/15/17 0658 05/15/17 0658 Results 24 hrs Laboratory Tests Test 05/14/17 17:41 05/14/17 20:50 05/15/17 06:58 05/15/17 07:44 Bedside Glucose 173 119 190 White Blood Count 5.9 Red Blood Count 2.41 L Hemoglobin 7.6 L Hematocrit 22.7 L Mean Corpuscular Volume 94.2 Mean Corpuscular Hemoglobin 31.5 Mean Corpuscular Hemoglobin Concent 33.5 Red Cell Distribution Width 17.2 H Platelet Count 194 Mean Platelet Volume 12.3 H Neutrophils % 62.2 Lymphocytes % 20.8 Monocytes % 8.8 Eosinophils % 6.8 Basophils % 0.9 Nucleated Red Blood Cells % 0.0 Neutrophils # 4.7 Lymphocytes # 1.6 Monocytes # 0.7 Eosinophils # 0.5 Basophils # 0.1 Nucleated Red Blood Cells # 0.0 Absolute Reticulocyte Count 0.150 H Percent Reticulocyte Count 6.2 H Sodium Level 137 Potassium Level 4.3 Chloride Level 97 Carbon Dioxide Level 29 Anion Gap 15 Blood Urea Nitrogen 47 H Creatinine 4.08 H Glucose Level 155 Calcium Level 8.9 Total Bilirubin 0.7 Direct Bilirubin 0.00 Indirect Bilirubin 0.7 Aspartate Amino Transf (AST/SGOT) 24 Alanine Aminotransferase (ALT/SGPT) 36 Alkaline Phosphatase 53 Lactate Dehydrogenase 851 H Total Protein 6.0 L Albumin 2.9 L Globulin 3.10 Albumin/Globulin Ratio 0.93 Test 05/15/17 09:16 05/15/17 12:22 05/15/17 14:01 Bedside Glucose 257 H 104 White Blood Count Pending Red Blood Count Pending Hemoglobin Pending Hematocrit Pending Mean Corpuscular Volume Pending Mean Corpuscular Hemoglobin Pending Mean Corpuscular Hemoglobin Concent Pending Red Cell Distribution Width Pending Platelet Count Pending Mean Platelet Volume Pending Medications Medications Current Medications Ondansetron HCl (Zofran Tab) 4 mg Q6H PRN PO NAUSEA AND/OR VOMITING; Start at 23:00 Nitroglycerin (Nitroglycerin (Sl Tab) 0.4 Mg) 1 tab Q5M PRN SL CHEST PAIN; Start 04/24/17 at 23:00 Docusate Sodium (Colace) 100 mg Q12H PRN PO CONSTIPATION; Start 04/24/17 at 23 :00 Bisacodyl (Dulcolax) 5 mg DAILY PRN PO CONSTIPATION; Start 04/24/17 at 23:00 Atorvastatin Calcium (Lipitor) 80 mg QHS PO Last administered on 05/14/17 20: 52; Admin Dose 80 MG; Start 04/25/17 at 21:00 Ergocalciferol (Drisdol) 50,000 unit Mo@09 PO Last administered on 05/13/17 09:40; Admin Dose 50,000 UNIT; Start 04/24/17 at 23:00 Ferrous Sulfate (Ferrous Sulfate (Ec)) 325 mg DAILY PO Last administered on 09:32; Admin Dose 325 MG; Start 04/25/17 at 09:00 Multivit/Ca Carb/ B Cmplx/FA/Prenat (Isabel-Brenda) 1 tab DAILY PO Last administered on 05/15/17 09:43; Admin Dose 1 TAB; Start 04/25/17 at 09:00 Pantoprazole (Protonix Tab) 40 mg DAILY@06 PO Last administered on 05/15/17 06:25; Admin Dose 40 MG; Start 04/25/17 at 06:00 Guaifenesin/ Dextromethorphan (Mucinex Dm) 1 tab BID PO Last administered on 09:32; Admin Dose 1 TAB; Start 04/25/17 at 03:15 Diagnostic Test (Pha) (Accu-Chek) 1 ea 02 XX Last administered on 05/13/17 02 :15; Admin Dose 1 EA; Start 04/26/17 at 02:00 Citric Acid/ Sodium Citrate (Bicitra) 30 ml TID PO Last administered on 12:33; Admin Dose 30 ML; Start 04/25/17 at 13:00 Aspirin (Aspirin) 81 mg DAILY PO Last administered on 04/30/17 10:05; Admin Dose 81 MG; Start 04/25/17 at 12:00; Status Future Hold Heparin Sodium (Porcine) (Heparin (5000 Units/0.5 ml)) 5,000 unit BID SC Last administered on 05/08/17 09:02; Admin Dose 5,000 UNIT; Start 04/26/17 at 09:00 ; Status Future Hold Miscellaneous Information 1 ea NOTE XX Last administered on 04/30/17 17:45; Admin Dose 1 EA; Start 04/25/17 at 12:00 Glucose (Glutose) 15 gm Q15M PRN PO DECREASED GLUCOSE; Start 04/25/17 at 12:00 Glucose (Glutose) 22.5 gm Q15M PRN PO DECREASED GLUCOSE; Start 04/25/17 at 12: 00 Dextrose (D50w Syringe) 25 ml Q15M PRN IV DECREASED GLUCOSE Last administered on 05/08/17 16:08; Admin Dose 25 ML; Start 04/25/17 at 12:00 Dextrose (D50w Syringe) 50 ml Q15M PRN IV DECREASED GLUCOSE Last administered on 05/09/17 00:39; Admin Dose 50 ML; Start 04/25/17 at 12:00 Glucagon (Glucagen) 1 mg Q15M PRN IM DECREASED GLUCOSE; Start 04/25/17 at 12: 00 Glucose (Glutose) 15 gm Q15M PRN BUCCAL DECREASED GLUCOSE; Start 04/25/17 at 12:00 Fish Oil (Fish Oil) 2,000 mg BID PO Last administered on 05/15/17 09:32; Admin Dose 2,000 MG; Start 04/27/17 at 21:00 EZETIMIBE (Zetia) 10 mg DAILY PO Last administered on 05/15/17 09:31; Admin Dose 10 MG; Start 04/28/17 at 09:00 Morphine Sulfate (morphine) 2 mg Q4H PRN IV Pain Last administered on 10:24; Admin Dose 2 MG; Start 04/28/17 at 09:00 Linagliptin (Tradjenta) 5 mg DAILY PO Last administered on 05/15/17 09:32; Admin Dose 5 MG; Start 04/28/17 at 12:00 Tiotropium [place] (Spiriva) 1 inh DAILY INH Last administered on 05/15/17 09 :54; Admin Dose 1 INH; Start 04/30/17 at 13:30 Salmeterol Xinafoate/ Fluticasone (Advair 250/50 Diskus) 1 inh BID INH Last administered on 05/15/17 09:34; Admin Dose 1 INH; Start 04/30/17 at 21:00 Amlodipine Besylate (Norvasc) 5 mg BID PO Last administered on 05/15/17 09:33 ; Admin Dose 5 MG; Start 05/03/17 at 21:00 Carvedilol (Coreg) 3.125 mg BID PO Last administered on 05/15/17 09:33; Admin Dose 3.125 MG; Start 05/04/17 at 09:00 Epoetin Jero (Epogen (Esrd)) 6,000 units TuThSa@17 SC Last administered on 17:43; Admin Dose 6,000 UNITS; Start 05/11/17 at 17:00 Insulin Glargine (Lantus) 25 unit BID SC Last administered on 05/15/17 09:42 ; Admin Dose 25 UNIT; Start 05/12/17 at 21:00 Folic Acid (Folic Acid) 1 mg DAILY PO Last administered on 05/15/17 09:32; Admin Dose 1 MG; Start 05/13/17 at 20:30 Zolpidem Tartrate (Ambien) 5 mg HS PRN PO INSOMNIA Last administered on 21:41; Admin Dose 5 MG; Start 05/14/17 at 21:30 Furosemide (Lasix) 20 mg DAILY PO Last administered on 05/15/17 09:34; Admin Dose 20 MG; Start 05/15/17 at 09:00 PERRY JUAREZ May 15, 2017 15:47
[2017-05-15 16:19] LABS: PLATELET COUNT 205 10^3/UL (140-440); WHITE BLOOD COUNT 5.8 10^3/ul (4.8-10.8)
[2017-05-15 16:20] LABS: HEMATOCRIT 25.2 % (42.0-52.0); HEMOGLOBIN 8.6 g/dl (14.0-18.0); MEAN CORPUSCULAR HEMOGLOBIN 31.9 pg (29.0-33.0); MEAN CORPUSCULAR HGB CONC 34.1 g/dl (32.0-37.0); MEAN CORPUSCULAR VOLUME 93.3 fl (82.0-101.0); MEAN PLATELET VOLUME 11.6 fl (7.4-10.4)
[2017-05-15 16:22] LABS: RED CELL DISTRIBUTION WIDTH 17.2 % (11.5-14.5)
[2017-05-15 17:10] LABS: BASOPHIL # 0.1 10^3/ul (0.0-0.1); EOSINOPHILS # 0.5 10^3/ul (0.0-0.5); EOSINOPHILS % (M) 8 % (0.0-7.0); LYMPHOCYTES # 1.7 10^3/ul (0.8-2.9); MONOCYTE # 0.5 10^3/ul (0.3-0.9); MONOCYTES % (M) 9 % (0-11)
[2017-05-15 17:13] LABS: ANISOCYTOSIS 1+ (0-0)
[2017-05-15 17:16] LABS: PLATELET ESTIMATE DECREASED
--- NOTE | 2017-05-15 17:38 | CONS ---
Date/Time of Note Date/Time of Note DATE: 05/15/17 TIME: 17:38 Assessment/Plan Assessment/Plan Additional Assessment/Plan 1. 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 Acute hyperkalemia due to TROY on CKD - resolved after pt gets started on HD 4. Metabolic acidosis due to worsenign renal failure- resolved after pt gets started on HD 5. H/ CAD S/p previous coronary angiogram as per patient 6. Hypertension 7. Type II DM 8. Hyperlipidemia 9. Acute NSETMI due to CHF 10. severe anemia despite getting PRBC Plan : hepatitis C antibody positive, Hepatitis A antibody positive EGD showed distal esophagitis, s/p Hd today , will keep him on MWF Schedule, Hb remains low around 8.2- on Epogen 6000 units TIW for anemia , Hematology consulted on the case. HD placement confirmed at [facility] - [facility] [place] is MWF will follow up Consultation Date/Type/Reason Admit Date/Time Apr 24, 2017 at 19:05 Initial Consult Date 04/25/17 Type of Consultation: NEPHROLOGY Referring Provider: NANY PRIEST NP 24 HR Interval Summary Free Text/Dictation s/p HD today , Bp stable, Hb stable Exam/Review of Systems Vital Signs Vitals Vital Signs Date Time Temp Pulse Resp B/P Pulse Ox O2 Delivery O2 Flow Rate FiO2 05/15/17 16:10 70 05/15/17 15:46 97.5 20 122/78 98 05/15/17 08:17 21 Intake and Output 05/14/17 05/14/17 05/15/17 15:00 23:00 07:00 Intake Total 700 ml 120 ml Balance 700 ml 120 ml Exam Constitutional: alert Psych: no complaints Head: normocephalic Eyes: nl conjunctiva ENMT: nl external ears & nose Neck: non-tender, supple Respiratory: clear to auscultation, diminished breath sounds, normal air movement Cardiovascular: nl pulses, regular rate and rhythm Musculoskeletal: nl extremities to inspection Extremities: normal pulses 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: STENCIL MAKER II-XII intact, nl mental status Results Result Diagram: 05/15/17 1401 05/15/17 0658 Results 24 hrs Laboratory Tests Test 05/14/17 17:41 05/14/17 20:50 05/15/17 06:58 05/15/17 07:44 Bedside Glucose 173 119 190 White Blood Count 5.9 Red Blood Count 2.41 L Hemoglobin 7.6 L Hematocrit 22.7 L Mean Corpuscular Volume 94.2 Mean Corpuscular Hemoglobin 31.5 Mean Corpuscular Hemoglobin Concent 33.5 Red Cell Distribution Width 17.2 H Platelet Count 194 Mean Platelet Volume 12.3 H Neutrophils % 62.2 Lymphocytes % 20.8 Monocytes % 8.8 Eosinophils % 6.8 Basophils % 0.9 Nucleated Red Blood Cells % 0.0 Neutrophils # 4.7 Lymphocytes # 1.6 Monocytes # 0.7 Eosinophils # 0.5 Basophils # 0.1 Nucleated Red Blood Cells # 0.0 Absolute Reticulocyte Count 0.150 H Percent Reticulocyte Count 6.2 H Sodium Level 137 Potassium Level 4.3 Chloride Level 97 Carbon Dioxide Level 29 Anion Gap 15 Blood Urea Nitrogen 47 H Creatinine 4.08 H Glucose Level 155 Calcium Level 8.9 Total Bilirubin 0.7 Direct Bilirubin 0.00 Indirect Bilirubin 0.7 Aspartate Amino Transf (AST/SGOT) 24 Alanine Aminotransferase (ALT/SGPT) 36 Alkaline Phosphatase 53 Lactate Dehydrogenase 851 H Total Protein 6.0 L Albumin 2.9 L Globulin 3.10 Albumin/Globulin Ratio 0.93 Test 05/15/17 09:16 05/15/17 12:22 05/15/17 14:01 Bedside Glucose 257 H 104 White Blood Count 5.8 Red Blood Count 2.70 L Hemoglobin 8.6 L Hematocrit 25.2 L Mean Corpuscular Volume 93.3 Mean Corpuscular Hemoglobin 31.9 Mean Corpuscular Hemoglobin Concent 34.1 Red Cell Distribution Width 17.2 H Platelet Count 205 # Mean Platelet Volume 11.6 H Segmented Neutrophils % (Manual) 53 Lymphocytes % (Manual) 29 Monocytes % (Manual) 9 Eosinophils % (Manual) 8 H Absolute Lymphocytes (Manual) 1.6 Lymphocytes # 1.7 Monocytes # 0.5 Absolute Monocytes (Manual) 0.5 Eosinophils # 0.5 Basophils # 0.1 Platelet Estimate DECREASED Anisocytosis 1+ Macrocytosis 1+ Medications Medications Current Medications Ondansetron HCl (Zofran Tab) 4 mg Q6H PRN PO NAUSEA AND/OR VOMITING; Start at 23:00 Nitroglycerin (Nitroglycerin (Sl Tab) 0.4 Mg) 1 tab Q5M PRN SL CHEST PAIN; Start 04/24/17 at 23:00 Docusate Sodium (Colace) 100 mg Q12H PRN PO CONSTIPATION; Start 04/24/17 at 23 :00 Bisacodyl (Dulcolax) 5 mg DAILY PRN PO CONSTIPATION; Start 04/24/17 at 23:00 Atorvastatin Calcium (Lipitor) 80 mg QHS PO Last administered on 05/14/17 20: 52; Admin Dose 80 MG; Start 04/25/17 at 21:00 Ergocalciferol (Drisdol) 50,000 unit Mo@09 PO Last administered on 05/13/17 09:40; Admin Dose 50,000 UNIT; Start 04/24/17 at 23:00 Ferrous Sulfate (Ferrous Sulfate (Ec)) 325 mg DAILY PO Last administered on 09:32; Admin Dose 325 MG; Start 04/25/17 at 09:00 Multivit/Ca Carb/ B Cmplx/FA/Prenat (Isabel-Brenda) 1 tab DAILY PO Last administered on 05/15/17 09:43; Admin Dose 1 TAB; Start 04/25/17 at 09:00 Pantoprazole (Protonix Tab) 40 mg DAILY@06 PO Last administered on 05/15/17 06:25; Admin Dose 40 MG; Start 04/25/17 at 06:00 Guaifenesin/ Dextromethorphan (Mucinex Dm) 1 tab BID PO Last administered on 09:32; Admin Dose 1 TAB; Start 04/25/17 at 03:15 Diagnostic Test (Pha) (Accu-Chek) 1 ea 02 XX Last administered on 05/13/17 02 :15; Admin Dose 1 EA; Start 04/26/17 at 02:00 Citric Acid/ Sodium Citrate (Bicitra) 30 ml TID PO Last administered on 12:33; Admin Dose 30 ML; Start 04/25/17 at 13:00 Aspirin (Aspirin) 81 mg DAILY PO Last administered on 04/30/17 10:05; Admin Dose 81 MG; Start 04/25/17 at 12:00; Status Future Hold Heparin Sodium (Porcine) (Heparin (5000 Units/0.5 ml)) 5,000 unit BID SC Last administered on 05/08/17 09:02; Admin Dose 5,000 UNIT; Start 04/26/17 at 09:00 ; Status Future Hold Miscellaneous Information 1 ea NOTE XX Last administered on 04/30/17 17:45; Admin Dose 1 EA; Start 04/25/17 at 12:00 Glucose (Glutose) 15 gm Q15M PRN PO DECREASED GLUCOSE; Start 04/25/17 at 12:00 Glucose (Glutose) 22.5 gm Q15M PRN PO DECREASED GLUCOSE; Start 04/25/17 at 12: 00 Dextrose (D50w Syringe) 25 ml Q15M PRN IV DECREASED GLUCOSE Last administered on 05/08/17 16:08; Admin Dose 25 ML; Start 04/25/17 at 12:00 Dextrose (D50w Syringe) 50 ml Q15M PRN IV DECREASED GLUCOSE Last administered on 05/09/17 00:39; Admin Dose 50 ML; Start 04/25/17 at 12:00 Glucagon (Glucagen) 1 mg Q15M PRN IM DECREASED GLUCOSE; Start 04/25/17 at 12: 00 Glucose (Glutose) 15 gm Q15M PRN BUCCAL DECREASED GLUCOSE; Start 04/25/17 at 12:00 Fish Oil (Fish Oil) 2,000 mg BID PO Last administered on 05/15/17 09:32; Admin Dose 2,000 MG; Start 04/27/17 at 21:00 EZETIMIBE (Zetia) 10 mg DAILY PO Last administered on 05/15/17 09:31; Admin Dose 10 MG; Start 04/28/17 at 09:00 Morphine Sulfate (morphine) 2 mg Q4H PRN IV Pain Last administered on 10:24; Admin Dose 2 MG; Start 04/28/17 at 09:00 Linagliptin (Tradjenta) 5 mg DAILY PO Last administered on 05/15/17 09:32; Admin Dose 5 MG; Start 04/28/17 at 12:00 Tiotropium [place] (Spiriva) 1 inh DAILY INH Last administered on 05/15/17 09 :54; Admin Dose 1 INH; Start 04/30/17 at 13:30 Salmeterol Xinafoate/ Fluticasone (Advair 250/50 Diskus) 1 inh BID INH Last administered on 05/15/17 09:34; Admin Dose 1 INH; Start 04/30/17 at 21:00 Amlodipine Besylate (Norvasc) 5 mg BID PO Last administered on 05/15/17 09:33 ; Admin Dose 5 MG; Start 05/03/17 at 21:00 Carvedilol (Coreg) 3.125 mg BID PO Last administered on 05/15/17 09:33; Admin Dose 3.125 MG; Start 05/04/17 at 09:00 Epoetin Jero (Epogen (Esrd)) 6,000 units TuThSa@17 SC Last administered on 17:43; Admin Dose 6,000 UNITS; Start 05/11/17 at 17:00 Insulin Glargine (Lantus) 25 unit BID SC Last administered on 05/15/17 09:42 ; Admin Dose 25 UNIT; Start 05/12/17 at 21:00 Folic Acid (Folic Acid) 1 mg DAILY PO Last administered on 05/15/17 09:32; Admin Dose 1 MG; Start 05/13/17 at 20:30 Zolpidem Tartrate (Ambien) 5 mg HS PRN PO INSOMNIA Last administered on 21:41; Admin Dose 5 MG; Start 05/14/17 at 21:30 Furosemide (Lasix) 20 mg DAILY PO Last administered on 05/15/17 09:34; Admin Dose 20 MG; Start 05/15/17 at 09:00 RAQUEL MCDOWELL MD May 15, 2017 17:38
[2017-05-15] MEDS: ATORVASTATIN 80 MG TAB PO SCH (20:44)
[2017-05-16] VITALS (13 sets, daily range): BP systolic 136–148; BP diastolic 57–65; PULSE 53–81; RESP 18–76
[2017-05-16] MEDS: ALBUTEROL/IPRATROPIUM (NEB) 3 ML AMP HHN SCH ×6 (00:33→20:07)
[2017-05-16] MEDS: ACCU-CHEK XX SCH (02:00)
[2017-05-16] MEDS: PANTOPRAZOLE (EC) 40 MG TAB PO SCH (06:14)
[2017-05-16] MEDS: INSULIN ASPART [NOVOLOG] 3 ML PEN SC SCH ×7 (08:30→20:33)
[2017-05-16] MEDS: FUROSEMIDE 20 MG TAB PO SCH (08:39)
[2017-05-16] MEDS: FISH OIL 1,000 MG CAP PO SCH ×2 (08:39→20:23)
[2017-05-16] MEDS: LINAGLIPTIN 5 MG TABLET PO SCH (08:40)
[2017-05-16] MEDS: FERROUS SULFATE (EC) 325 MG TAB PO SCH (08:40)
[2017-05-16] MEDS: EZETIMIBE 10 MG TAB PO SCH (08:40)
[2017-05-16] MEDS: FOLIC ACID 1 MG TAB PO SCH (08:40)
[2017-05-16] MEDS: MULTIVIT/CA CARB/B CMPLX/FA TAB PO SCH (08:40)
[2017-05-16] MEDS: GUAIFENESIN/DM (SR) TAB PO SCH ×2 (08:40→20:24)
[2017-05-16] MEDS: AMLODIPINE 5 MG TAB PO SCH ×2 (08:41→20:24)
[2017-05-16] MEDS: CITRIC ACID/SODIUM CITRATE 15 ML CUP PO SCH ×3 (08:41→20:22)
[2017-05-16] MEDS: INSULIN GLARGINE [LANtus] 3 ML PEN SC SCH ×3 (08:45→20:33)
[2017-05-16] MEDS: SALMETEROL/FLUTICASONE 250/50 INHA INH SCH ×2 (08:46→20:22)
[2017-05-16] MEDS: TIOTROPIUM 18 MCG CAPSULE INHA DEV INH SCH (08:46)
[2017-05-16 08:53] LABS: BILIRUBIN,INDIRECT 0.8 mg/dl (0-1.1); BILIRUBIN,TOTAL 0.8 mg/dl (0.2-1.3)
[2017-05-16 12:04] LABS: HEMATOCRIT 24.4 % (42.0-52.0); MEAN CORPUSCULAR HEMOGLOBIN 31.7 pg (29.0-33.0); MEAN CORPUSCULAR VOLUME 99.2 fl (82.0-101.0); RED BLOOD COUNT 2.46 10^6/ul (4.70-6.10); WHITE BLOOD COUNT 5.5 10^3/ul (4.8-10.8)
[2017-05-16 12:05] LABS: LYMPHOCYTES % 29.6 % (15.0-51.0); MEAN PLATELET VOLUME 12.1 fl (7.4-10.4); MONOCYTES % 9.7 % (0.0-11.0); NEUTROPHILS % 51.6 % (39.0-77.0); PLATELET COUNT 213 10^3/UL (140-440); RED CELL DISTRIBUTION WIDTH 16.9 % (11.5-14.5)
[2017-05-16 12:06] LABS: BASOPHIL # 0.1 10^3/ul (0.0-0.1); BASOPHILS % 0.9 % (0.0-2.0); EOSINOPHILS # 0.4 10^3/ul (0.0-0.5); LYMPHOCYTES # 1.6 10^3/ul (0.8-2.9); MONOCYTE # 0.5 10^3/ul (0.3-0.9); NEUTROPHIL # 2.8 10^3/ul (1.6-7.5)
[2017-05-16 12:07] LABS: HEMOGLOBIN 7.8 g/dl (14.0-18.0)
[2017-05-16 12:09] LABS: RETICULOCYTE COUNT % 5.3 % (0.5-1.5)
[2017-05-16 12:31] LABS: MYCOPLASMA PNEUMONIAE AB (IGG) < or = 0.90
--- NOTE | 2017-05-16 12:40 | PN ---
Date/Time of Note Date/Time of Note DATE: 05/16/17 TIME: 12:37 Assessment/Plan VTE Prophylaxis VTE Prophylaxis Intervention: ambulation Lines/Catheters IV Catheter Type (from [facility]): perma cath Urinary Cath still in place: No Assessment/Plan Chief Complaint/Hosp Course 66 yo man referred for anemia. I spoke with pt, and Benjamin Velez. In brief he has required RBC transfusions and it is unclear as to how much bleeding there has been. He has numerous medical problems that include diabetes, renal failure requiring dialysis, COPD, CHF, hypertension, dyslipidemia, venous thrombosis on anticoagulation but anticoagulation held because of anemia, esophagitis. No clinical bleeding is presently noted. Problems: Assessment/Plan Hgb is still low but appears to be slowly improving. Hgb was higher when run on a specimen kept warm suggesting that the cold agglutinin is causing spurious results on a routine CBC. No steroids suggested. Will recheck labs with dialysis tomorrow. Subjective 24 Hr Interval Summary Free Text/Dictation Pt is sitting in chair and walked a bit in the halls earlier. Exam/Review of Systems Vital Signs Vitals Vital Signs Date Time Temp Pulse Resp B/P Pulse Ox O2 Delivery O2 Flow Rate FiO2 05/16/17 12:04 53 05/16/17 11:55 97.5 20 148/57 99 05/15/17 20:07 21 Intake and Output 05/15/17 05/15/17 05/16/17 15:00 23:00 07:00 Intake Total 500 ml 800 ml 400 ml Output Total 3500 ml Balance -3000 ml 800 ml 400 ml Exam Constitutional: alert, oriented Head: normocephalic Eyes: other (pallor) ENMT: nl external ears & nose Neck: supple Respiratory: clear to auscultation Cardiovascular: regular rate and rhythm Gastrointestinal: non-tender, soft Results Result Diagram: 05/16/17 0732 05/15/17 0658 Results 24 hrs Laboratory Tests Test 05/15/17 14:01 05/15/17 17:42 05/15/17 20:08 05/15/17 20:54 White Blood Count 5.8 Red Blood Count 2.70 L Hemoglobin 8.6 L Hematocrit 25.2 L Mean Corpuscular Volume 93.3 Mean Corpuscular Hemoglobin 31.9 Mean Corpuscular Hemoglobin Concent 34.1 Red Cell Distribution Width 17.2 H Platelet Count 205 # Mean Platelet Volume 11.6 H Segmented Neutrophils % (Manual) 53 Lymphocytes % (Manual) 29 Monocytes % (Manual) 9 Eosinophils % (Manual) 8 H Absolute Lymphocytes (Manual) 1.6 Lymphocytes # 1.7 Monocytes # 0.5 Absolute Monocytes (Manual) 0.5 Eosinophils # 0.5 Basophils # 0.1 Platelet Estimate DECREASED Anisocytosis 1+ Macrocytosis 1+ Bedside Glucose 121 47 *L 105 Test 05/16/17 07:32 05/16/17 08:18 White Blood Count 5.5 Red Blood Count 2.46 L Hemoglobin 7.8 L Hematocrit 24.4 L Mean Corpuscular Volume 99.2 Mean Corpuscular Hemoglobin 31.7 Mean Corpuscular Hemoglobin Concent 32.0 Red Cell Distribution Width 16.9 H Platelet Count 213 Mean Platelet Volume 12.1 H Neutrophils % 51.6 Lymphocytes % 29.6 Monocytes % 9.7 Eosinophils % 8.0 H Basophils % 0.9 Nucleated Red Blood Cells % 0.0 Neutrophils # 2.8 Lymphocytes # 1.6 Monocytes # 0.5 Eosinophils # 0.4 Basophils # 0.1 Nucleated Red Blood Cells # 0.0 Absolute Reticulocyte Count 0.130 H Percent Reticulocyte Count 5.3 H Total Bilirubin 0.8 Direct Bilirubin 0.00 Indirect Bilirubin 0.8 Lactate Dehydrogenase 600 Bedside Glucose 203 Medications Medications Current Medications Ondansetron HCl (Zofran Tab) 4 mg Q6H PRN PO NAUSEA AND/OR VOMITING; Start at 23:00 Nitroglycerin (Nitroglycerin (Sl Tab) 0.4 Mg) 1 tab Q5M PRN SL CHEST PAIN; Start 04/24/17 at 23:00 Docusate Sodium (Colace) 100 mg Q12H PRN PO CONSTIPATION; Start 04/24/17 at 23 :00 Bisacodyl (Dulcolax) 5 mg DAILY PRN PO CONSTIPATION; Start 04/24/17 at 23:00 Atorvastatin Calcium (Lipitor) 80 mg QHS PO Last administered on 05/15/17 20: 44; Admin Dose 80 MG; Start 04/25/17 at 21:00 Ergocalciferol (Drisdol) 50,000 unit Mo@09 PO Last administered on 05/13/17 09:40; Admin Dose 50,000 UNIT; Start 04/24/17 at 23:00 Ferrous Sulfate (Ferrous Sulfate (Ec)) 325 mg DAILY PO Last administered on 08:40; Admin Dose 325 MG; Start 04/25/17 at 09:00 Multivit/Ca Carb/ B Cmplx/FA/Prenat (Isabel-Brenda) 1 tab DAILY PO Last administered on 05/16/17 08:40; Admin Dose 1 TAB; Start 04/25/17 at 09:00 Pantoprazole (Protonix Tab) 40 mg DAILY@06 PO Last administered on 05/16/17 06:14; Admin Dose 40 MG; Start 04/25/17 at 06:00 Guaifenesin/ Dextromethorphan (Mucinex Dm) 1 tab BID PO Last administered on 08:40; Admin Dose 1 TAB; Start 04/25/17 at 03:15 Diagnostic Test (Pha) (Accu-Chek) 1 ea 02 XX Last administered on 05/13/17 02 :15; Admin Dose 1 EA; Start 04/26/17 at 02:00 Citric Acid/ Sodium Citrate (Bicitra) 30 ml TID PO Last administered on 12:24; Admin Dose 30 ML; Start 04/25/17 at 13:00 Aspirin (Aspirin) 81 mg DAILY PO Last administered on 04/30/17 10:05; Admin Dose 81 MG; Start 04/25/17 at 12:00; Status Future Hold Heparin Sodium (Porcine) (Heparin (5000 Units/0.5 ml)) 5,000 unit BID SC Last administered on 05/08/17 09:02; Admin Dose 5,000 UNIT; Start 04/26/17 at 09:00 ; Status Future Hold Miscellaneous Information 1 ea NOTE XX Last administered on 04/30/17 17:45; Admin Dose 1 EA; Start 04/25/17 at 12:00 Glucose (Glutose) 15 gm Q15M PRN PO DECREASED GLUCOSE; Start 04/25/17 at 12:00 Glucose (Glutose) 22.5 gm Q15M PRN PO DECREASED GLUCOSE; Start 04/25/17 at 12: 00 Dextrose (D50w Syringe) 25 ml Q15M PRN IV DECREASED GLUCOSE Last administered on 05/08/17 16:08; Admin Dose 25 ML; Start 04/25/17 at 12:00 Dextrose (D50w Syringe) 50 ml Q15M PRN IV DECREASED GLUCOSE Last administered on 05/09/17 00:39; Admin Dose 50 ML; Start 04/25/17 at 12:00 Glucagon (Glucagen) 1 mg Q15M PRN IM DECREASED GLUCOSE; Start 04/25/17 at 12: 00 Glucose (Glutose) 15 gm Q15M PRN BUCCAL DECREASED GLUCOSE; Start 04/25/17 at 12:00 Fish Oil (Fish Oil) 2,000 mg BID PO Last administered on 05/16/17 08:39; Admin Dose 2,000 MG; Start 04/27/17 at 21:00 EZETIMIBE (Zetia) 10 mg DAILY PO Last administered on 05/16/17 08:40; Admin Dose 10 MG; Start 04/28/17 at 09:00 Morphine Sulfate (morphine) 2 mg Q4H PRN IV Pain Last administered on 10:24; Admin Dose 2 MG; Start 04/28/17 at 09:00 Linagliptin (Tradjenta) 5 mg DAILY PO Last administered on 05/16/17 08:40; Admin Dose 5 MG; Start 04/28/17 at 12:00 Tiotropium [place] (Spiriva) 1 inh DAILY INH Last administered on 05/16/17 08 :46; Admin Dose 1 INH; Start 04/30/17 at 13:30 Salmeterol Xinafoate/ Fluticasone (Advair 250/50 Diskus) 1 inh BID INH Last administered on 05/16/17 08:46; Admin Dose 1 INH; Start 04/30/17 at 21:00 Amlodipine Besylate (Norvasc) 5 mg BID PO Last administered on 05/16/17 08:41 ; Admin Dose 5 MG; Start 05/03/17 at 21:00 Carvedilol (Coreg) 3.125 mg BID PO Last administered on 05/16/17 08:41; Admin Dose 3.125 MG; Start 05/04/17 at 09:00 Epoetin Jero (Epogen (Esrd)) 6,000 units TuThSa@17 SC Last administered on 17:43; Admin Dose 6,000 UNITS; Start 05/11/17 at 17:00 Folic Acid (Folic Acid) 1 mg DAILY PO Last administered on 05/16/17 08:40; Admin Dose 1 MG; Start 05/13/17 at 20:30 Zolpidem Tartrate (Ambien) 5 mg HS PRN PO INSOMNIA Last administered on 21:41; Admin Dose 5 MG; Start 05/14/17 at 21:30 Furosemide (Lasix) 20 mg DAILY PO Last administered on 05/16/17 08:39; Admin Dose 20 MG; Start 05/15/17 at 09:00 Insulin Glargine (Lantus) 22 unit BID SC ; Start 05/16/17 at 21:00 WILLIAM YEE MD May 16, 2017 12:40
--- NOTE | 2017-05-16 13:36 | CONS ---
Date/Time of Note Date/Time of Note DATE: 05/16/17 TIME: 13:33 Assessment/Plan Assessment/Plan Chief Complaint/Hosp Course Pleasant [place]ian gentleman with his family present in the room reporting a 30 year history of diabetes mellitus type 2. He had been on oral agent therapy but as his kidneys declined he was transitioned over to a multiple daily injection regimen using Lantus and NovoLog. He intermittently takes full dose Januvia 100 mg despite his renal dysfunction Problems: (1) Diabetes mellitus type 2 in obese Status: Chronic Comment: Blood sugar control is adequate on the current regimen. Continue same. (2) End stage renal disease on dialysis due to type 2 diabetes mellitus Status: Chronic Comment: As per nephrology. Stable on hemodialysis (3) Hemolytic anemia Status: Acute Comment: As per hematology recheck labs tomorrow. 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 (4) COPD (chronic obstructive pulmonary disease) Status: Chronic Comment: Adequate control on medications Qualifiers: COPD type: emphysema Emphysema type: unspecified Qualified Code: J43.9 - Pulmonary emphysema, unspecified emphysema type Consultation Date/Type/Reason Admit Date/Time Apr 24, 2017 at 19:05 Initial Consult Date 04/27/17 Type of Consultation: Endocrinology Reason for Consultation Diabetes mellitus with end-stage renal disease; retinopathy; peripheral neuropathy Referring Provider: NANY PRIEST NP 24 HR Interval Summary Free Text/Dictation No new complaints no polys Constitutional: no complaints Exam/Review of Systems Vital Signs Vitals Vital Signs Date Time Temp Pulse Resp B/P Pulse Ox O2 Delivery O2 Flow Rate FiO2 05/16/17 12:41 58 16 93 21 05/16/17 11:55 97.5 148/57 Intake and Output 05/15/17 05/15/17 05/16/17 15:00 23:00 07:00 Intake Total 500 ml 800 ml 400 ml Output Total 3500 ml Balance -3000 ml 800 ml 400 ml Results No change in exam Result Diagram: 05/16/17 0732 05/15/17 0658 Results 24 hrs Laboratory Tests Test 05/15/17 14:01 05/15/17 17:42 05/15/17 20:08 05/15/17 20:54 White Blood Count 5.8 Red Blood Count 2.70 L Hemoglobin 8.6 L Hematocrit 25.2 L Mean Corpuscular Volume 93.3 Mean Corpuscular Hemoglobin 31.9 Mean Corpuscular Hemoglobin Concent 34.1 Red Cell Distribution Width 17.2 H Platelet Count 205 # Mean Platelet Volume 11.6 H Segmented Neutrophils % (Manual) 53 Lymphocytes % (Manual) 29 Monocytes % (Manual) 9 Eosinophils % (Manual) 8 H Absolute Lymphocytes (Manual) 1.6 Lymphocytes # 1.7 Monocytes # 0.5 Absolute Monocytes (Manual) 0.5 Eosinophils # 0.5 Basophils # 0.1 Platelet Estimate DECREASED Anisocytosis 1+ Macrocytosis 1+ Bedside Glucose 121 47 *L 105 Test 05/16/17 07:32 05/16/17 08:18 05/16/17 12:19 White Blood Count 5.5 Red Blood Count 2.46 L Hemoglobin 7.8 L Hematocrit 24.4 L Mean Corpuscular Volume 99.2 Mean Corpuscular Hemoglobin 31.7 Mean Corpuscular Hemoglobin Concent 32.0 Red Cell Distribution Width 16.9 H Platelet Count 213 Mean Platelet Volume 12.1 H Neutrophils % 51.6 Lymphocytes % 29.6 Monocytes % 9.7 Eosinophils % 8.0 H Basophils % 0.9 Nucleated Red Blood Cells % 0.0 Neutrophils # 2.8 Lymphocytes # 1.6 Monocytes # 0.5 Eosinophils # 0.4 Basophils # 0.1 Nucleated Red Blood Cells # 0.0 Absolute Reticulocyte Count 0.130 H Percent Reticulocyte Count 5.3 H Total Bilirubin 0.8 Direct Bilirubin 0.00 Indirect Bilirubin 0.8 Lactate Dehydrogenase 600 Bedside Glucose 203 86 Medications Medications Current Medications Ondansetron HCl (Zofran Tab) 4 mg Q6H PRN PO NAUSEA AND/OR VOMITING; Start at 23:00 Nitroglycerin (Nitroglycerin (Sl Tab) 0.4 Mg) 1 tab Q5M PRN SL CHEST PAIN; Start 04/24/17 at 23:00 Docusate Sodium (Colace) 100 mg Q12H PRN PO CONSTIPATION; Start 04/24/17 at 23 :00 Bisacodyl (Dulcolax) 5 mg DAILY PRN PO CONSTIPATION; Start 04/24/17 at 23:00 Atorvastatin Calcium (Lipitor) 80 mg QHS PO Last administered on 05/15/17t 20: 44; Admin Dose 80 MG; Start 04/25/17 at 21:00 Ergocalciferol (Drisdol) 50,000 unit Mo@09 PO Last administered on 05/13/17 09:40; Admin Dose 50,000 UNIT; Start 04/24/17 at 23:00 Ferrous Sulfate (Ferrous Sulfate (Ec)) 325 mg DAILY PO Last administered on 08:40; Admin Dose 325 MG; Start 04/25/17 at 09:00 Multivit/Ca Carb/ B Cmplx/FA/Prenat (Isabel-Brenda) 1 tab DAILY PO Last administered on 05/16/17 08:40; Admin Dose 1 TAB; Start 04/25/17 at 09:00 Pantoprazole (Protonix Tab) 40 mg DAILY@06 PO Last administered on 05/16/17 06:14; Admin Dose 40 MG; Start 04/25/17 at 06:00 Guaifenesin/ Dextromethorphan (Mucinex Dm) 1 tab BID PO Last administered on 08:40; Admin Dose 1 TAB; Start 04/25/17 at 03:15 Diagnostic Test (Pha) (Accu-Chek) 1 ea 02 XX Last administered on 05/13/17 02 :15; Admin Dose 1 EA; Start 04/26/17 at 02:00 Citric Acid/ Sodium Citrate (Bicitra) 30 ml TID PO Last administered on 12:24; Admin Dose 30 ML; Start 04/25/17 at 13:00 Aspirin (Aspirin) 81 mg DAILY PO Last administered on 04/30/17 10:05; Admin Dose 81 MG; Start 04/25/17 at 12:00; Status Future Hold Heparin Sodium (Porcine) (Heparin (5000 Units/0.5 ml)) 5,000 unit BID SC Last administered on 05/08/17 09:02; Admin Dose 5,000 UNIT; Start 04/26/17 at 09:00 ; Status Future Hold Miscellaneous Information 1 ea NOTE XX Last administered on 04/30/17 17:45; Admin Dose 1 EA; Start 04/25/17 at 12:00 Glucose (Glutose) 15 gm Q15M PRN PO DECREASED GLUCOSE; Start 04/25/17 at 12:00 Glucose (Glutose) 22.5 gm Q15M PRN PO DECREASED GLUCOSE; Start 04/25/17 at 12: 00 Dextrose (D50w Syringe) 25 ml Q15M PRN IV DECREASED GLUCOSE Last administered on 05/08/17 16:08; Admin Dose 25 ML; Start 04/25/17 at 12:00 Dextrose (D50w Syringe) 50 ml Q15M PRN IV DECREASED GLUCOSE Last administered on 05/09/17 00:39; Admin Dose 50 ML; Start 04/25/17 at 12:00 Glucagon (Glucagen) 1 mg Q15M PRN IM DECREASED GLUCOSE; Start 04/25/17 at 12: 00 Glucose (Glutose) 15 gm Q15M PRN BUCCAL DECREASED GLUCOSE; Start 04/25/17 at 12:00 Fish Oil (Fish Oil) 2,000 mg BID PO Last administered on 05/16/17 08:39; Admin Dose 2,000 MG; Start 04/27/17 at 21:00 EZETIMIBE (Zetia) 10 mg DAILY PO Last administered on 05/16/17 08:40; Admin Dose 10 MG; Start 04/28/17 at 09:00 Morphine Sulfate (morphine) 2 mg Q4H PRN IV Pain Last administered on 10:24; Admin Dose 2 MG; Start 04/28/17 at 09:00 Linagliptin (Tradjenta) 5 mg DAILY PO Last administered on 05/16/17 08:40; Admin Dose 5 MG; Start 04/28/17 at 12:00 T[address] [place] (Spiriva) 1 inh DAILY INH Last administered on 05/16/17 08 :46; Admin Dose 1 INH; Start 04/30/17 at 13:30 Salmeterol Xinafoate/ Fluticasone (Advair 250/50 Diskus) 1 inh BID INH Last administered on 05/16/17 08:46; Admin Dose 1 INH; Start 04/30/17 at 21:00 Amlodipine Besylate (Norvasc) 5 mg BID PO Last administered on 05/16/17 08:41 ; Admin Dose 5 MG; Start 05/03/17 at 21:00 Carvedilol (Coreg) 3.125 mg BID PO Last administered on 05/16/17 08:41; Admin Dose 3.125 MG; Start 05/04/17 at 09:00 Epoetin Jero (Epogen (Esrd)) 6,000 units TuThSa@17 SC Last administered on 17:43; Admin Dose 6,000 UNITS; Start 05/11/17 at 17:00 Folic Acid (Folic Acid) 1 mg DAILY PO Last administered on 05/16/17 08:40; Admin Dose 1 MG; Start 05/13/17 at 20:30 Zolpidem Tartrate (Ambien) 5 mg HS PRN PO INSOMNIA Last administered on 21:41; Admin Dose 5 MG; Start 05/14/17 at 21:30 Furosemide (Lasix) 20 mg DAILY PO Last administered on 05/16/17 08:39; Admin Dose 20 MG; Start 05/15/17 at 09:00 Insulin Glargine (Lantus) 22 unit BID SC ; Start 05/16/17 at 21:00 MARA GRAYSON MD May 16, 2017 13:36
--- NOTE | 2017-05-16 14:44 | PN ---
Date/Time of Note Date/Time of Note DATE: 05/16/17 TIME: 14:30 Assessment/Plan VTE Prophylaxis VTE Prophylaxis Intervention: heparin Lines/Catheters IV C[facility]ter Type (from [facility]): perma cath Urinary Cath still in place: No Assessment/Plan Chief Complaint/Hosp Course Assessment and plan 1. Acute respiratory failure secondary to fluid overload. Improved status post dialysis. monitor for now. O2 as needed. 2. Intermittent Mobitz type I block. A symptomatically present. Manager Medical Writing following. Monitor on telemetry. 3. Acute on chronic CHF. Noted with diastolic dysfunction. On dialysis. Stable at present. 4. Moderate distal esophagitis. Continue PPI medication. 5. Pulmonary hypertension. Noted with PA systolic pressure of 44 mmHg. Off O2. Tolerating well. Monitor for now. 6. History of CAD. Patient is status post PTCA. Of note aspirin on hold due to current anemia. 7. Dyslipidemia. Continue on statin medication. 8. Metabolic acidosis. Secondary to renal dysfunction. Bicitra per solution consultant. 9. Type 2 diabetes. On insulin regimen. Followed by solution consultant. Adjust as needed. 10. Essential hypertension. Continue antihypertensives and adjust needed. 11. DVT of the left popliteal vein. Anticoagulation on hold secondary to anemia. 12. Acute on chronic kidney disease. On dialysis now. Monitor I's. 13. Anemia. Labile at present. Manager Brand to follow. Disposition and plan: continue anemia workup per child abuse worker. trend appears to be improving at present. d/c when cleared by consultants. Discussed plan of care with Dr. York Problems: Subjective 24 Hr Interval Summary Free Text/Dictation no s/s of distress. Exam/Review of Systems Vital Signs Vitals Vital Signs Date Time Temp Pulse Resp B/P Pulse Ox O2 Delivery O2 Flow Rate FiO2 05/16/17 12:41 58 16 93 21 05/16/17 11:55 97.5 148/57 Intake and Output 05/15/17 05/15/17 05/16/17 15:00 23:00 07:00 Intake Total 500 ml 800 ml 400 ml Output Total 3500 ml Balance -3000 ml 800 ml 400 ml Exam Constitutional: alert, oriented Psych: no complaints Head: normocephalic Neck: non-tender, supple Respiratory: clear to auscultation, normal air movement Cardiovascular: regular rate and rhythm Gastrointestinal: non-tender, soft Musculoskeletal: nl extremities to inspection 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: NIGHT CLERK II-XII intact, nl mental status, nl speech Skin: minimal swelling ble Results Result Diagram: 05/16/17 0732 05/15/17 0658 Results 24 hrs Laboratory Tests Test 05/15/17 17:42 05/15/17 20:08 05/15/17 20:54 05/16/17 07:32 Bedside Glucose 121 47 *L 105 White Blood Count 5.5 Red Blood Count 2.46 L Hemoglobin 7.8 L Hematocrit 24.4 L Mean Corpuscular Volume 99.2 Mean Corpuscular Hemoglobin 31.7 Mean Corpuscular Hemoglobin Concent 32.0 Red Cell Distribution Width 16.9 H Platelet Count 213 Mean Platelet Volume 12.1 H Neutrophils % 51.6 Lymphocytes % 29.6 Monocytes % 9.7 Eosinophils % 8.0 H Basophils % 0.9 Nucleated Red Blood Cells % 0.0 Neutrophils # 2.8 Lymphocytes # 1.6 Monocytes # 0.5 Eosinophils # 0.4 Basophils # 0.1 Nucleated Red Blood Cells # 0.0 Absolute Reticulocyte Count 0.130 H Percent Reticulocyte Count 5.3 H Total Bilirubin 0.8 Direct Bilirubin 0.00 Indirect Bilirubin 0.8 Lactate Dehydrogenase 600 Test 05/16/17 08:18 05/16/17 12:19 Bedside Glucose 203 86 Medications Medications Current Medications Ondansetron HCl (Zofran Tab) 4 mg Q6H PRN PO NAUSEA AND/OR VOMITING; Start at 23:00 Nitroglycerin (Nitroglycerin (Sl Tab) 0.4 Mg) 1 tab Q5M PRN SL CHEST PAIN; Start 04/24/17 at 23:00 Docusate Sodium (Colace) 100 mg Q12H PRN PO CONSTIPATION; Start 04/24/17 at 23 :00 Bisacodyl (Dulcolax) 5 mg DAILY PRN PO CONSTIPATION; Start 04/24/17 at 23:00 Atorvastatin Calcium (Lipitor) 80 mg QHS PO Last administered on 05/15/17 20: 44; Admin Dose 80 MG; Start 04/25/17 at 21:00 Ergocalciferol (Drisdol) 50,000 unit Mo@09 PO Last administered on 05/13/17 09:40; Admin Dose 50,000 UNIT; Start 04/24/17 at 23:00 Ferrous Sulfate (Ferrous Sulfate (Ec)) 325 mg DAILY PO Last administered on 08:40; Admin Dose 325 MG; Start 04/25/17 at 09:00 Multivit/Ca Carb/ B Cmplx/FA/Prenat (Isabel-Brenda) 1 tab DAILY PO Last administered on 05/16/17 08:40; Admin Dose 1 TAB; Start 04/25/17 at 09:00 Pantoprazole (Protonix Tab) 40 mg DAILY@06 PO Last administered on 05/16/17 06:14; Admin Dose 40 MG; Start 04/25/17 at 06:00 Guaifenesin/ Dextromethorphan (Mucinex Dm) 1 tab BID PO Last administered on 08:40; Admin Dose 1 TAB; Start 04/25/17 at 03:15 Diagnostic Test (Pha) (Accu-Chek) 1 ea 02 XX Last administered on 05/13/17 02 :15; Admin Dose 1 EA; Start 04/26/17 at 02:00 Citric Acid/ Sodium Citrate (Bicitra) 30 ml TID PO Last administered on 12:24; Admin Dose 30 ML; Start 04/25/17 at 13:00 Aspirin (Aspirin) 81 mg DAILY PO Last administered on 04/30/17 10:05; Admin Dose 81 MG; Start 04/25/17 at 12:00; Status Future Hold Heparin Sodium (Porcine) (Heparin (5000 Units/0.5 ml)) 5,000 unit BID SC Last administered on 05/08/17 09:02; Admin Dose 5,000 UNIT; Start 04/26/17 at 09:00 ; Status Future Hold Miscellaneous Information 1 ea NOTE XX Last administered on 04/30/17 17:45; Admin Dose 1 EA; Start 04/25/17 at 12:00 Glucose (Glutose) 15 gm Q15M PRN PO DECREASED GLUCOSE; Start 04/25/17 at 12:00 Glucose (Glutose) 22.5 gm Q15M PRN PO DECREASED GLUCOSE; Start 04/25/17 at 12: 00 Dextrose (D50w Syringe) 25 ml Q15M PRN IV DECREASED GLUCOSE Last administered on 05/08/17 16:08; Admin Dose 25 ML; Start 04/25/17 at 12:00 Dextrose (D50w Syringe) 50 ml Q15M PRN IV DECREASED GLUCOSE Last administered on 05/09/17 00:39; Admin Dose 50 ML; Start 04/25/17 at 12:00 Glucagon (Glucagen) 1 mg Q15M PRN IM DECREASED GLUCOSE; Start 04/25/17 at 12: 00 Glucose (Glutose) 15 gm Q15M PRN BUCCAL DECREASED GLUCOSE; Start 04/25/17 at 12:00 Fish Oil (Fish Oil) 2,000 mg BID PO Last administered on 05/16/17 08:39; Admin Dose 2,000 MG; Start 04/27/17 at 21:00 EZETIMIBE (Zetia) 10 mg DAILY PO Last administered on 05/16/17 08:40; Admin Dose 10 MG; Start 04/28/17 at 09:00 Morphine Sulfate (morphine) 2 mg Q4H PRN IV Pain Last administered on 10:24; Admin Dose 2 MG; Start 04/28/17 at 09:00 Linagliptin (Tradjenta) 5 mg DAILY PO Last administered on 05/16/17 08:40; Admin Dose 5 MG; Start 04/28/17 at 12:00 Tiotropium [place] (Spiriva) 1 inh DAILY INH Last administered on 05/16/17 08 :46; Admin Dose 1 INH; Start 04/30/17 at 13:30 Salmeterol Xinafoate/ Fluticasone (Advair 250/50 Diskus) 1 inh BID INH Last administered on 05/16/17 08:46; Admin Dose 1 INH; Start 04/30/17 at 21:00 Amlodipine Besylate (Norvasc) 5 mg BID PO Last administered on 05/16/17 08:41 ; Admin Dose 5 MG; Start 05/03/17 at 21:00 Carvedilol (Coreg) 3.125 mg BID PO Last administered on 05/16/17 08:41; Admin Dose 3.125 MG; Start 05/04/17 at 09:00 Epoetin Jero (Epogen (Esrd)) 6,000 units TuThSa@17 SC Last administered on 17:43; Admin Dose 6,000 UNITS; Start 05/11/17 at 17:00 Folic Acid (Folic Acid) 1 mg DAILY PO Last administered on 05/16/17 08:40; Admin Dose 1 MG; Start 05/13/17 at 20:30 Zolpidem Tartrate (Ambien) 5 mg HS PRN PO INSOMNIA Last administered on 21:41; Admin Dose 5 MG; Start 05/14/17 at 21:30 Furosemide (Lasix) 20 mg DAILY PO Last administered on 05/16/17 08:39; Admin Dose 20 MG; Start 05/15/17 at 09:00 Insulin Glargine (Lantus) 22 unit BID SC ; Start 05/16/17 at 21:00 PERRY JUAREZ May 16, 2017 14:42
--- NOTE | 2017-05-16 15:49 | CONS ---
Date/Time of Note Date/Time of Note DATE: 05/16/17 TIME: 15:47 Assessment/Plan Assessment/Plan Additional Assessment/Plan Volume overload Acute kidney injury with history of CKD, started on hemodialysis Acute decompensated diastolic congestive heart failure Diabetes CAD with history of PCI over 10 years ago Hypertension Dyslipidemia History of DVT, previously on anticoagulation Acute blood loss anemia status post blood transfusion Intermittent Mobitz type I, asymptomatic - Aspirin and anticoagulation have been stopped secondary to recurrent anemia requiring blood transfusion. Patient undergoing workup by hematology. Fluid management via hemodialysis as per our nephrology colleagues. Blood pressure trend overall stable. Continue statin therapy if no contraindication. Consultation Date/Type/Reason Admit Date/Time Apr 24, 2017 at 19:05 Initial Consult Date 04/27/17 Type of Consultation: cv Referring Provider: NANY PRIEST NP 24 HR Interval Summary Free Text/Dictation Patient denies dizziness, shortness of breath or palpitations Exam/Review of Systems Vital Signs Vitals Vital Signs Date Time Temp Pulse Resp B/P Pulse Ox O2 Delivery O2 Flow Rate FiO2 05/16/17 12:41 58 16 93 21 05/16/17 11:55 97.5 148/57 Intake and Output 05/15/17 05/15/17 05/16/17 14:59 22:59 06:59 Intake Total 500 ml 800 ml 400 ml Output Total 3500 ml Balance -3000 ml 800 ml 400 ml Exam No apparent distress Constitutional: alert, obese, oriented Head: normocephalic Respiratory: other (Coarse breath sounds bilaterally, no wheezing) Cardiovascular: other (S1-S2 heard), regular rate and rhythm Gastrointestinal: bowel sounds, non-tender, soft Extremities: edema Results Result Diagram: 05/16/17 0732 05/15/17 0658 Results 24 hrs Laboratory Tests Test 05/15/17 17:42 05/15/17 20:08 05/15/17 20:54 05/16/17 07:32 Bedside Glucose 121 47 *L 105 White Blood Count 5.5 Red Blood Count 2.46 L Hemoglobin 7.8 L Hematocrit 24.4 L Mean Corpuscular Volume 99.2 Mean Corpuscular Hemoglobin 31.7 Mean Corpuscular Hemoglobin Concent 32.0 Red Cell Distribution Width 16.9 H Platelet Count 213 Mean Platelet Volume 12.1 H Neutrophils % 51.6 Lymphocytes % 29.6 Monocytes % 9.7 Eosinophils % 8.0 H Basophils % 0.9 Nucleated Red Blood Cells % 0.0 Neutrophils # 2.8 Lymphocytes # 1.6 Monocytes # 0.5 Eosinophils # 0.4 Basophils # 0.1 Nucleated Red Blood Cells # 0.0 Absolute Reticulocyte Count 0.130 H Percent Reticulocyte Count 5.3 H Total Bilirubin 0.8 Direct Bilirubin 0.00 Indirect Bilirubin 0.8 Lactate Dehydrogenase 600 Test 05/16/17 08:18 05/16/17 12:19 Bedside Glucose 203 86 Medications Medications Current Medications Ondansetron HCl (Zofran Tab) 4 mg Q6H PRN PO NAUSEA AND/OR VOMITING; Start at 23:00 Nitroglycerin (Nitroglycerin (Sl Tab) 0.4 Mg) 1 tab Q5M PRN SL CHEST PAIN; Start 04/24/17 at 23:00 Docusate Sodium (Colace) 100 mg Q12H PRN PO CONSTIPATION; Start 04/24/17 at 23 :00 Bisacodyl (Dulcolax) 5 mg DAILY PRN PO CONSTIPATION; Start 04/24/17 at 23:00 Atorvastatin Calcium (Lipitor) 80 mg QHS PO Last administered on 05/15/17 20: 44; Admin Dose 80 MG; Start 04/25/17 at 21:00 Ergocalciferol (Drisdol) 50,000 unit Mo@09 PO Last administered on 05/13/17 09:40; Admin Dose 50,000 UNIT; Start 04/24/17 at 23:00 Ferrous Sulfate (Ferrous Sulfate (Ec)) 325 mg DAILY PO Last administered on 08:40; Admin Dose 325 MG; Start 04/25/17 at 09:00 Multivit/Ca Carb/ B Cmplx/FA/Prenat (Isabel-Brenda) 1 tab DAILY PO Last administered on 05/16/17 08:40; Admin Dose 1 TAB; Start 04/25/17 at 09:00 Pantoprazole (Protonix Tab) 40 mg DAILY@06 PO Last administered on 05/16/17 06:14; Admin Dose 40 MG; Start 04/25/17 at 06:00 Guaifenesin/ Dextromethorphan (Mucinex Dm) 1 tab BID PO Last administered on 08:40; Admin Dose 1 TAB; Start 04/25/17 at 03:15 Diagnostic Test (Pha) (Accu-Chek) 1 ea 02 XX Last administered on 05/13/17 02 :15; Admin Dose 1 EA; Start 04/26/17 at 02:00 Citric Acid/ Sodium Citrate (Bicitra) 30 ml TID PO Last administered on 12:24; Admin Dose 30 ML; Start 04/25/17 at 13:00 Aspirin (Aspirin) 81 mg DAILY PO Last administered on 04/30/17 10:05; Admin Dose 81 MG; Start 04/25/17 at 12:00; Status Future Hold Heparin Sodium (Porcine) (Heparin (5000 Units/0.5 ml)) 5,000 unit BID SC Last administered on 05/08/17 09:02; Admin Dose 5,000 UNIT; Start 04/26/17 at 09:00 ; Status Future Hold Miscellaneous Information 1 ea NOTE XX Last administered on 04/30/17 17:45; Admin Dose 1 EA; Start 04/25/17 at 12:00 Glucose (Glutose) 15 gm Q15M PRN PO DECREASED GLUCOSE; Start 04/25/17 at 12:00 Glucose (Glutose) 22.5 gm Q15M PRN PO DECREASED GLUCOSE; Start 04/25/17 at 12: 00 Dextrose (D50w Syringe) 25 ml Q15M PRN IV DECREASED GLUCOSE Last administered on 05/08/17 16:08; Admin Dose 25 ML; Start 04/25/17 at 12:00 Dextrose (D50w Syringe) 50 ml Q15M PRN IV DECREASED GLUCOSE Last administered on 05/09/17 00:39; Admin Dose 50 ML; Start 04/25/17 at 12:00 Glucagon (Glucagen) 1 mg Q15M PRN IM DECREASED GLUCOSE; Start 04/25/17 at 12: 00 Glucose (Glutose) 15 gm Q15M PRN BUCCAL DECREASED GLUCOSE; Start 04/25/17 at 12:00 Fish Oil (Fish Oil) 2,000 mg BID PO Last administered on 05/16/17 08:39; Admin Dose 2,000 MG; Start 04/27/17 at 21:00 EZETIMIBE (Zetia) 10 mg DAILY PO Last administered on 05/16/17 08:40; Admin Dose 10 MG; Start 04/28/17 at 09:00 Morphine Sulfate (morphine) 2 mg Q4H PRN IV Pain Last administered on 10:24; Admin Dose 2 MG; Start 04/28/17 at 09:00 Linagliptin (Tradjenta) 5 mg DAILY PO Last administered on 05/16/17 08:40; Admin Dose 5 MG; Start 04/28/17 at 12:00 Tiotropium [place] (Spiriva) 1 inh DAILY INH Last administered on 05/16/17 08 :46; Admin Dose 1 INH; Start 04/30/17 at 13:30 Salmeterol Xinafoate/ Fluticasone (Advair 250/50 Diskus) 1 inh BID INH Last administered on 05/16/17 08:46; Admin Dose 1 INH; Start 04/30/17 at 21:00 Amlodipine Besylate (Norvasc) 5 mg BID PO Last administered on 05/16/17 08:41 ; Admin Dose 5 MG; Start 05/03/17 at 21:00 Carvedilol (Coreg) 3.125 mg BID PO Last administered on 05/16/17 08:41; Admin Dose 3.125 MG; Start 05/04/17 at 09:00 Epoetin Jero (Epogen (Esrd)) 6,000 units TuThSa@17 SC Last administered on 17:43; Admin Dose 6,000 UNITS; Start 05/11/17 at 17:00 Folic Acid (Folic Acid) 1 mg DAILY PO Last administered on 05/16/17 08:40; Admin Dose 1 MG; Start 05/13/17 at 20:30 Zolpidem Tartrate (Ambien) 5 mg HS PRN PO INSOMNIA Last administered on 21:41; Admin Dose 5 MG; Start 05/14/17 at 21:30 Furosemide (Lasix) 20 mg DAILY PO Last administered on 05/16/17 08:39; Admin Dose 20 MG; Start 05/15/17 at 09:00 Insulin Glargine (Lantus) 22 unit BID SC ; Start 05/16/17 at 21:00 Dell De La Torre DO May 16, 2017 15:49
[2017-05-16] MEDS: EPOETIN 3000 UNITS/1 ML INJ (ESRD) SC SCH (17:34)
--- NOTE | 2017-05-16 17:43 | CONS ---
Date/Time of Note Date/Time of Note DATE: 05/16/17 TIME: 17:43 Assessment/Plan Assessment/Plan Additional Assessment/Plan 1. 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 Acute hyperkalemia due to TROY on CKD - resolved after pt gets started on HD 4. Metabolic acidosis due to worsenign renal failure- resolved after pt gets started on HD 5. H/ CAD S/p previous coronary angiogram as per patient 6. Hypertension 7. Type II DM 8. Hyperlipidemia 9. Acute NSETMI due to CHF 10. severe anemia despite getting PRBC Plan : hepatitis C antibody positive, Hepatitis A antibody positive EGD showed distal esophagitis, HD ordered for tomorrow , will keep him on MWF Schedule, Hb remains low around 7.8- on Epogen 6000 units TIW for anemia , Hematology consulted on the case. HD placement confirmed at [facility] - [facility] is MWF will follow up Consultation Date/Type/Reason Admit Date/Time Apr 24, 2017 at 19:05 Initial Consult Date 04/25/17 Type of Consultation: NEPHROLOG Y Referring Provider: NANY PRIEST NP 24 HR Interval Summary Free Text/Dictation no acute event, Hb dropped to 7.8, Plan for HD tomorow Exam/Review of Systems Vital Signs Vitals Vital Signs Date Time Temp Pulse Resp B/P Pulse Ox O2 Delivery O2 Flow Rate FiO2 05/16/17 16:37 65 18 97 21 05/16/17 16:09 98.2 136/63 Intake and Output 05/15/17 05/15/17 05/16/17 15:00 23:00 07:00 Intake Total 500 ml 800 ml 400 ml Output Total 3500 ml Balance -3000 ml 800 ml 400 ml Exam Constitutional: alert ENMT: nl external ears & nose Neck: non-tender, supple Respiratory: clear to auscultation, diminished breath sounds, normal air movement Cardiovascular: nl pulses, regular rate and rhythm Musculoskeletal: nl extremities to inspection Extremities: normal pulses 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: HEAD CONCIERGE II-XII intact, nl mental status Results Result Diagram: 05/16/17 0732 05/15/17 0658 Results 24 hrs Laboratory Tests Test 05/15/17 20:08 05/15/17 20:54 05/16/17 07:32 05/16/17 08:18 Bedside Glucose 47 *L 105 203 White Blood Count 5.5 Red Blood Count 2.46 L Hemoglobin 7.8 L Hematocrit 24.4 L Mean Corpuscular Volume 99.2 Mean Corpuscular Hemoglobin 31.7 Mean Corpuscular Hemoglobin Concent 32.0 Red Cell Distribution Width 16.9 H Platelet Count 213 Mean Platelet Volume 12.1 H Neutrophils % 51.6 Lymphocytes % 29.6 Monocytes % 9.7 Eosinophils % 8.0 H Basophils % 0.9 Nucleated Red Blood Cells % 0.0 Neutrophils # 2.8 Lymphocytes # 1.6 Monocytes # 0.5 Eosinophils # 0.4 Basophils # 0.1 Nucleated Red Blood Cells # 0.0 Absolute Reticulocyte Count 0.130 H Percent Reticulocyte Count 5.3 H Total Bilirubin 0.8 Direct Bilirubin 0.00 Indirect Bilirubin 0.8 Lactate Dehydrogenase 600 Test 05/16/17 12:19 05/16/17 17:20 Bedside Glucose 86 179 Medications Medications Current Medications Ondansetron HCl (Zofran Tab) 4 mg Q6H PRN PO NAUSEA AND/OR VOMITING; Start at 23:00 Nitroglycerin (Nitroglycerin (Sl Tab) 0.4 Mg) 1 tab Q5M PRN SL CHEST PAIN; Start 04/24/17 at 23:00 Docusate Sodium (Colace) 100 mg Q12H PRN PO CONSTIPATION; Start 04/24/17 at 23 :00 Bisacodyl (Dulcolax) 5 mg DAILY PRN PO CONSTIPATION; Start 04/24/17 at 23:00 Atorvastatin Calcium (Lipitor) 80 mg QHS PO Last administered on 05/15/17 20: 44; Admin Dose 80 MG; Start 04/25/17 at 21:00 Ergocalciferol (Drisdol) 50,000 unit Mo@09 PO Last administered on 05/13/17 09:40; Admin Dose 50,000 UNIT; Start 04/24/17 at 23:00 Ferrous Sulfate (Ferrous Sulfate (Ec)) 325 mg DAILY PO Last administered on 08:40; Admin Dose 325 MG; Start 04/25/17 at 09:00 Multivit/Ca Carb/ B Cmplx/FA/Prenat (Isabel-Brenda) 1 tab DAILY PO Last administered on 05/16/17 08:40; Admin Dose 1 TAB; Start 04/25/17 at 09:00 Pantoprazole (Protonix Tab) 40 mg DAILY@06 PO Last administered on 05/16/17 06:14; Admin Dose 40 MG; Start 04/25/17 at 06:00 Guaifenesin/ Dextromethorphan (Mucinex Dm) 1 tab BID PO Last administered on 08:40; Admin Dose 1 TAB; Start 04/25/17 at 03:15 Diagnostic Test (Pha) (Accu-Chek) 1 ea 02 XX Last administered on 05/13/17 02 :15; Admin Dose 1 EA; Start 04/26/17 at 02:00 Citric Acid/ Sodium Citrate (Bicitra) 30 ml TID PO Last administered on 12:24; Admin Dose 30 ML; Start 04/25/17 at 13:00 Aspirin (Aspirin) 81 mg DAILY PO Last administered on 04/30/17 10:05; Admin Dose 81 MG; Start 04/25/17 at 12:00; Status Future Hold Heparin Sodium (Porcine) (Heparin (5000 Units/0.5 ml)) 5,000 unit BID SC Last administered on 05/08/17 09:02; Admin Dose 5,000 UNIT; Start 04/26/17 at 09:00 ; Status Future Hold Miscellaneous Information 1 ea NOTE XX Last administered on 04/30/17 17:45; Admin Dose 1 EA; Start 04/25/17 at 12:00 Glucose (Glutose) 15 gm Q15M PRN PO DECREASED GLUCOSE; Start 04/25/17 at 12:00 Glucose (Glutose) 22.5 gm Q15M PRN PO DECREASED GLUCOSE; Start 04/25/17 at 12: 00 Dextrose (D50w Syringe) 25 ml Q15M PRN IV DECREASED GLUCOSE Last administered on 05/08/17 16:08; Admin Dose 25 ML; Start 04/25/17 at 12:00 Dextrose (D50w Syringe) 50 ml Q15M PRN IV DECREASED GLUCOSE Last administered on 05/09/17 00:39; Admin Dose 50 ML; Start 04/25/17 at 12:00 Glucagon (Glucagen) 1 mg Q15M PRN IM DECREASED GLUCOSE; Start 04/25/17 at 12: 00 Glucose (Glutose) 15 gm Q15M PRN BUCCAL DECREASED GLUCOSE; Start 04/25/17 at 12:00 Fish Oil (Fish Oil) 2,000 mg BID PO Last administered on 05/16/17 08:39; Admin Dose 2,000 MG; Start 04/27/17 at 21:00 EZETIMIBE (Zetia) 10 mg DAILY PO Last administered on 05/16/17 08:40; Admin Dose 10 MG; Start 04/28/17 at 09:00 Morphine Sulfate (morphine) 2 mg Q4H PRN IV Pain Last administered on 10:24; Admin Dose 2 MG; Start 04/28/17 at 09:00 Linagliptin (Tradjenta) 5 mg DAILY PO Last administered on 05/16/17 08:40; Admin Dose 5 MG; Start 04/28/17 at 12:00 Tiotropium [place] (Spiriva) 1 inh DAILY INH Last administered on 05/16/17 08 :46; Admin Dose 1 INH; Start 04/30/17 at 13:30 Salmeterol Xinafoate/ Fluticasone (Advair 250/50 Diskus) 1 inh BID INH Last administered on 05/16/17 08:46; Admin Dose 1 INH; Start 04/30/17 at 21:00 Amlodipine Besylate (Norvasc) 5 mg BID PO Last administered on 05/16/17 08:41 ; Admin Dose 5 MG; Start 05/03/17 at 21:00 Carvedilol (Coreg) 3.125 mg BID PO Last administered on 05/16/17 08:41; Admin Dose 3.125 MG; Start 05/04/17 at 09:00 Epoetin Jero (Epogen (Esrd)) 6,000 units TuThSa@17 SC Last administered on 17:34; Admin Dose 6,000 UNITS; Start 05/11/17 at 17:00 Folic Acid (Folic Acid) 1 mg DAILY PO Last administered on 05/16/17 08:40; Admin Dose 1 MG; Start 05/13/17 at 20:30 Zolpidem Tartrate (Ambien) 5 mg HS PRN PO INSOMNIA Last administered on 21:41; Admin Dose 5 MG; Start 05/14/17 at 21:30 Furosemide (Lasix) 20 mg DAILY PO Last administered on 05/16/17 08:39; Admin Dose 20 MG; Start 05/15/17 at 09:00 Insulin Glargine (Lantus) 22 unit BID SC ; Start 05/16/17 at 21:00 RAQUEL MCDOWELL MD May 16, 2017 17:43
[2017-05-16] MEDS: ATORVASTATIN 80 MG TAB PO SCH (20:24)
[2017-05-17] VITALS (18 sets, daily range): BP systolic 94–157; BP diastolic 50–80; PULSE 54–80; RESP 18–20
[2017-05-17] MEDS: ALBUTEROL/IPRATROPIUM (NEB) 3 ML AMP HHN SCH ×6 (01:00→20:14)
[2017-05-17] MEDS: ACCU-CHEK XX SCH (02:00)
[2017-05-17] MEDS: PANTOPRAZOLE (EC) 40 MG TAB PO SCH (06:14)
[2017-05-17] MEDS: INSULIN ASPART [NOVOLOG] 3 ML PEN SC SCH ×8 (07:55→20:52)
[2017-05-17] MEDS: LINAGLIPTIN 5 MG TABLET PO SCH (09:02)
[2017-05-17] MEDS: CITRIC ACID/SODIUM CITRATE 15 ML CUP PO SCH ×3 (09:02→20:42)
[2017-05-17] MEDS: FISH OIL 1,000 MG CAP PO SCH ×2 (09:02→20:43)
[2017-05-17] MEDS: FOLIC ACID 1 MG TAB PO SCH (09:02)
[2017-05-17] MEDS: EZETIMIBE 10 MG TAB PO SCH (09:02)
[2017-05-17] MEDS: TIOTROPIUM 18 MCG CAPSULE INHA DEV INH SCH (09:02)
[2017-05-17] MEDS: SALMETEROL/FLUTICASONE 250/50 INHA INH SCH ×2 (09:02→22:08)
[2017-05-17] MEDS: FUROSEMIDE 20 MG TAB PO SCH (09:03)
[2017-05-17] MEDS: AMLODIPINE 5 MG TAB PO SCH ×2 (09:03→20:44)
[2017-05-17] MEDS: FERROUS SULFATE (EC) 325 MG TAB PO SCH (09:03)
[2017-05-17] MEDS: GUAIFENESIN/DM (SR) TAB PO SCH ×2 (09:03→20:43)
[2017-05-17] MEDS: MULTIVIT/CA CARB/B CMPLX/FA TAB PO SCH (09:03)
[2017-05-17] MEDS: INSULIN GLARGINE [LANtus] 3 ML PEN SC SCH ×2 (09:05→20:52)
[2017-05-17] MEDS ORDERED: ALTEPLASE (CATHFLO) 2 MG INJ CATHETER ONE (10:30)
[2017-05-17 11:32] LABS: MEAN CORPUSCULAR HEMOGLOBIN 31.9 pg (29.0-33.0); MEAN CORPUSCULAR HGB CONC 33.3 g/dl (32.0-37.0); MEAN CORPUSCULAR VOLUME 95.6 fl (82.0-101.0); PLATELET COUNT 227 10^3/UL (140-440); RED BLOOD COUNT 2.51 10^6/ul (4.70-6.10); WHITE BLOOD COUNT 4.8 10^3/ul (4.8-10.8)
[2017-05-17 11:33] LABS: EOSINOPHILS % 7.2 % (0.0-7.0); LYMPHOCYTES % 26.9 % (15.0-51.0); MEAN PLATELET VOLUME 11.7 fl (7.4-10.4); MONOCYTES % 8.1 % (0.0-11.0); NEUTROPHILS % 56.7 % (39.0-77.0); RED CELL DISTRIBUTION WIDTH 16.5 % (11.5-14.5)
[2017-05-17 11:34] LABS: BASOPHILS % 0.7 % (0.0-2.0); EOSINOPHILS # 0.4 10^3/ul (0.0-0.5); LYMPHOCYTES # 1.5 10^3/ul (0.8-2.9); MONOCYTE # 0.4 10^3/ul (0.3-0.9); NEUTROPHIL # 3.1 10^3/ul (1.6-7.5)
--- NOTE | 2017-05-17 13:01 | CONS ---
Date/Time of Note Date/Time of Note DATE: 05/17/17 TIME: 12:59 Assessment/Plan Assessment/Plan Additional Assessment/Plan Volume overload Acute kidney injury with history of CKD, started on hemodialysis Acute decompensated diastolic congestive heart failure Diabetes CAD with history of PCI over 10 years ago Hypertension Dyslipidemia History of DVT, previously on anticoagulation Acute blood loss anemia status post blood transfusion Intermittent Mobitz type I, asymptomatic - Aspirin and anticoagulation have been stopped secondary to recurrent anemia requiring blood transfusion. Patient undergoing workup by hematology. Fluid management via hemodialysis as per our nephrology colleagues. Blood pressure trend overall stable. Continue statin therapy if no contraindication. Consultation Date/Type/Reason Admit Date/Time Apr 24, 2017 at 19:05 Initial Consult Date 04/27/17 Type of Consultation: cv Referring Provider: NANY PRIEST NP 24 HR Interval Summary Free Text/Dictation Denies shortness of breath, dizziness or palpitations Exam/Review of Systems Vital Signs Vitals Vital Signs Date Time Temp Pulse Resp B/P Pulse Ox O2 Delivery O2 Flow Rate FiO2 05/17/17 12:36 62 16 95 21 05/17/17 12:16 97.8 144/76 Intake and Output 05/16/17 05/16/17 05/17/17 14:59 22:59 06:59 Intake Total 1200 ml 400 ml Balance 1200 ml 400 ml Exam Sitting in chair, having nebulizer treatment Constitutional: alert, oriented Head: normocephalic Respiratory: other (Coarse breath sounds bilaterally, no wheezing) Cardiovascular: other (S1-S2 heard), regular rate and rhythm Gastrointestinal: bowel sounds, non-tender, soft Extremities: edema Results Result Diagram: 05/17/17 0835 05/15/17 0658 Results 24 hrs Laboratory Tests Test 05/16/17 17:20 05/16/17 20:05 05/17/17 06:58 05/17/17 08:01 Bedside Glucose 179 216 86 Lab Scanned Report REFERENCE LAB Test 05/17/17 08:35 05/17/17 09:00 05/17/17 11:47 White Blood Count 4.8 Red Blood Count 2.51 L Hemoglobin 8.0 L Hematocrit 24.0 L Mean Corpuscular Volume 95.6 Mean Corpuscular Hemoglobin 31.9 Mean Corpuscular Hemoglobin Concent 33.3 Red Cell Distribution Width 16.5 H Platelet Count 227 Mean Platelet Volume 11.7 H Neutrophils % 56.7 Lymphocytes % 26.9 Monocytes % 8.1 Eosinophils % 7.2 H Basophils % 0.7 Nucleated Red Blood Cells % 0.0 Neutrophils # 3.1 Lymphocytes # 1.5 Monocytes # 0.4 Eosinophils # 0.4 Basophils # 0.0 Nucleated Red Blood Cells # 0.0 Absolute Reticulocyte Count 0.151 H Percent Reticulocyte Count 6.0 H Bedside Glucose 143 122 Medications Medications Current Medications Ondansetron HCl (Zofran Tab) 4 mg Q6H PRN PO NAUSEA AND/OR VOMITING; Start at 23:00 Nitroglycerin (Nitroglycerin (Sl Tab) 0.4 Mg) 1 tab Q5M PRN SL CHEST PAIN; Start 04/24/17 at 23:00 Docusate Sodium (Colace) 100 mg Q12H PRN PO CONSTIPATION; Start 04/24/17 at 23 :00 Bisacodyl (Dulcolax) 5 mg DAILY PRN PO CONSTIPATION; Start 04/24/17 at 23:00 Atorvastatin Calcium (Lipitor) 80 mg QHS PO Last administered on 05/16/17 20: 24; Admin Dose 80 MG; Start 04/25/17 at 21:00 Ergocalciferol (Drisdol) 50,000 unit Mo@09 PO Last administered on 05/13/17 09:40; Admin Dose 50,000 UNIT; Start 04/24/17 at 23:00 Ferrous Sulfate (Ferrous Sulfate (Ec)) 325 mg DAILY PO Last administered on 09:03; Admin Dose 325 MG; Start 04/25/17 at 09:00 Multivit/Ca Carb/ B Cmplx/FA/Prenat (Isabel-Brenda) 1 tab DAILY PO Last administered on 05/17/17 09:03; Admin Dose 1 TAB; Start 04/25/17 at 09:00 Pantoprazole (Protonix Tab) 40 mg DAILY@06 PO Last administered on 05/17/17 06:14; Admin Dose 40 MG; Start 04/25/17 at 06:00 Guaifenesin/ Dextromethorphan (Mucinex Dm) 1 tab BID PO Last administered on 09:03; Admin Dose 1 TAB; Start 04/25/17 at 03:15 Diagnostic Test (Pha) (Accu-Chek) 1 ea 02 XX Last administered on 05/13/17 02 :15; Admin Dose 1 EA; Start 04/26/17 at 02:00 Citric Acid/ Sodium Citrate (Bicitra) 30 ml TID PO Last administered on 09:02; Admin Dose 30 ML; Start 04/25/17 at 13:00 Aspirin (Aspirin) 81 mg DAILY PO Last administered on 04/30/17 10:05; Admin Dose 81 MG; Start 04/25/17 at 12:00; Status Future Hold Heparin Sodium (Porcine) (Heparin (5000 Units/0.5 ml)) 5,000 unit BID SC Last administered on 05/08/17 09:02; Admin Dose 5,000 UNIT; Start 04/26/17 at 09:00 ; Status Future Hold Miscellaneous Information 1 ea NOTE XX Last administered on 04/30/17 17:45; Admin Dose 1 EA; Start 04/25/17 at 12:00 Glucose (Glutose) 15 gm Q15M PRN PO DECREASED GLUCOSE; Start 04/25/17 at 12:00 Glucose (Glutose) 22.5 gm Q15M PRN PO DECREASED GLUCOSE; Start 04/25/17 at 12: 00 Dextrose (D50w Syringe) 25 ml Q15M PRN IV DECREASED GLUCOSE Last administered on 05/08/17 16:08; Admin Dose 25 ML; Start 04/25/17 at 12:00 Dextrose (D50w Syringe) 50 ml Q15M PRN IV DECREASED GLUCOSE Last administered on 05/09/17 00:39; Admin Dose 50 ML; Start 04/25/17 at 12:00 Glucagon (Glucagen) 1 mg Q15M PRN IM DECREASED GLUCOSE; Start 04/25/17 at 12: 00 Glucose (Glutose) 15 gm Q15M PRN BUCCAL DECREASED GLUCOSE; Start 04/25/17 at 12:00 Fish Oil (Fish Oil) 2,000 mg BID PO Last administered on 05/17/17 09:02; Admin Dose 2,000 MG; Start 04/27/17 at 21:00 EZETIMIBE (Zetia) 10 mg DAILY PO Last administered on 05/17/17 09:02; Admin Dose 10 MG; Start 04/28/17 at 09:00 Morphine Sulfate (morphine) 2 mg Q4H PRN IV Pain Last administered on 10:24; Admin Dose 2 MG; Start 04/28/17 at 09:00 Linagliptin (Tradjenta) 5 mg DAILY PO Last administered on 05/17/17 09:02; Admin Dose 5 MG; Start 04/28/17 at 12:00 Tiotropium [place] (Spiriva) 1 inh DAILY INH Last administered on 05/17/17 09 :02; Admin Dose 1 INH; Start 04/30/17 at 13:30 Salmeterol Xinafoate/ Fluticasone (Advair 250/50 Diskus) 1 inh BID INH Last administered on 05/17/17 09:02; Admin Dose 1 INH; Start 04/30/17 at 21:00 Amlodipine Besylate (Norvasc) 5 mg BID PO Last administered on 05/17/17 09:03 ; Admin Dose 5 MG; Start 05/03/17 at 21:00 Carvedilol (Coreg) 3.125 mg BID PO Last administered on 05/17/17 09:04; Admin Dose 3.125 MG; Start 05/04/17 at 09:00 Epoetin Jero (Epogen (Esrd)) 6,000 units TuThSa@17 SC Last administered on 17:34; Admin Dose 6,000 UNITS; Start 05/11/17 at 17:00 Folic Acid (Folic Acid) 1 mg DAILY PO Last administered on 05/17/17 09:02; Admin Dose 1 MG; Start 05/13/17 at 20:30 Zolpidem Tartrate (Ambien) 5 mg HS PRN PO INSOMNIA Last administered on 21:41; Admin Dose 5 MG; Start 05/14/17 at 21:30 Furosemide (Lasix) 20 mg DAILY PO Last administered on 05/17/17 09:03; Admin Dose 20 MG; Start 05/15/17 at 09:00 Insulin Glargine (Lantus) 22 unit BID SC Last administered on 05/17/17 09:05 ; Admin Dose 22 UNIT; Start 05/16/17 at 21:00 Dell De La Torre DO May 17, 2017 13:01
--- NOTE | 2017-05-17 13:16 | PN ---
DATE: 05/17/2017 SUBJECTIVE: Patient is feeling well. He has no complaints of shortness of breath. He has had no f angie, chills, no cough. OBJECTIVE: VITAL SIGNS: Temperature 97.9, pulse 66 per minute and regular, respirations 16 per minute, pulse o ximetry 95% on room air. SKIN: Pale. No ecchymosis, no petechiae or rashes. HEENT: No mucosal lesions. No scleral icterus. The pupils are equal, round, react to light and ac commodation. Oral mucosa and conjunctivae are pale. NECK: Supple, no jugular venous distention or thyroid enlargement. CHEST: Clear to auscultation and percussion. No rhonchi, wheezes, rales or rubs. There remains an internal jugular Perm-A-Cath in place. NODES: No palpable lymphadenopathy in any lymph node bearing area. ABDOMEN: Abdomen is obese, without masses or ascites. EXTREMITIES: Good range of motion, no clubbing, edema or cyanosis. No palpable cords or Homans sig n. NEUROLOGIC: Normal. LABORATORY DATA: White count of 4800 with an absolute neutrophil count of 3100, hemoglobin was 8, h ematocrit 24, MCV 95.6, MCH 31.9, MCHC 33.3, and platelet count 227,000. Total bilirubin is 0.8 wit h an indirect of 0.8. LDH is 600. The mycoplasma IgG is negative, being less than 0.9. ASSESSMENT: 1. Acute renal failure on chronic renal disease. 2. Cold agglutinin hemolytic anemia. DISCUSSION: It appears that the patient's hemolytic process has stopped. I have reminded the juancarlos wells that if there is still a cold agglutinin titer present that CBCs must be done on a warm specime n. The bilirubin, haptoglobin and LDH have normalized. Hemoglobin has remained relatively stable. I a ssume that much of the patient's anemia at this time is on the basis of his renal failure. We will repeat a.m., mycoplasma antibody, but obtain an IgM antibody. We will repeat a bilirubin to kilo and direct reticulocyte count, LDH, haptoglobin and CBC in the morning. As noted, I do feel that this patient's hemolytic process has significantly decreased. We will repe at a cold agglutinin titer. I do feel the patient is able to be discharged and continue hemodialysi s as an outpatient. Dictated By: QUIANA MOULTON MD, SR/FREDY Conf#: [id number] DID#: [id number]
--- NOTE | 2017-05-17 13:57 | CONS ---
Date/Time of Note Date/Time of Note DATE: 05/17/17 TIME: 13:55 Assessment/Plan Assessment/Plan Chief Complaint/Hosp Course Pleasant Litzy gentleman with his family present in the room reporting a 30 year history of diabetes mellitus type 2. He had been on oral agent therapy but as his kidneys declined he was transitioned over to a multiple daily injection regimen using Lantus and NovoLog. He intermittently takes full dose Januvia 100 mg despite his renal dysfunction Problems: (1) Diabetes mellitus type 2 in obese Status: Chronic Comment: Sugar control remains adequate at this time. I would continue same regimen. There is no impediment to discharge based on this diagnosis (2) End stage renal disease on dialysis due to type 2 diabetes mellitus Status: Chronic Comment: Stable on dialysis. This as near as I can tell stable for discharge from this basis (3) Hyperlipidemia associated with type 2 diabetes mellitus Status: Chronic Comment: Stable on statin therapy (4) Hemolytic anemia Status: Acute Comment: Please see note from hematology today. 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 (5) Hepatitis C antibody positive in blood Status: Chronic Comment: Viral RNA is negative. Recommend hepatitis B vaccine series (6) Hyperuricemia Status: Chronic Comment: Noted and stable (7) Essential hypertension Status: Chronic Comment: Adequate control (8) Diastolic dysfunction Status: Chronic Comment: Stable and controlled on beta-blockade (9) Coronary artery disease Status: Chronic Comment: Quiescent Qualifiers: Coronary Disease-Associated Artery/Lesion type: [place] artery [place] vs. transplanted heart: big [place] heart Associated angina: without angina Qualified Code: I25.10 - Coronary artery disease involving big sandy coronary artery of big sandy heart without angina pectoris (10) COPD (chronic obstructive pulmonary disease) Status: Chronic Comment: Adequate control on medical therapy. Qualifiers: COPD type: emphysema Emphysema type: unspecified Qualified Code: J43.9 - Pulmonary emphysema, unspecified emphysema type Consultation Date/Type/Reason Admit Date/Time Apr 24, 2017 at 19:05 Initial Consult Date 04/27/17 Type of Consultation: Endocrinology Reason for Consultation Diabetes mellitus type 2 on a multiple daily injection regimen complicated by end-stage renal disease; retinopathy; peripheral neuropathy; recent cold agglutinin positive hemolytic anemia Referring Provider: NANY PRIEST NP 24 HR Interval Summary Constitutional: no complaints Exam/Review of Systems Vital Signs Vitals Vital Signs Date Time Temp Pulse Resp B/P Pulse Ox O2 Delivery O2 Flow Rate FiO2 05/17/17 12:36 62 16 95 21 05/17/17 12:16 97.8 144/76 Intake and Output 05/16/17 05/16/17 05/17/17 15:00 23:00 07:00 Intake Total 1200 ml 400 ml Balance 1200 ml 400 ml Results No changes Result Diagram: 05/17/17 0835 05/15/17 0658 Results 24 hrs Laboratory Tests Test 05/16/17 17:20 05/16/17 20:05 05/17/17 06:58 05/17/17 08:01 Bedside Glucose 179 216 86 Lab Scanned Report REFERENCE LAB Test 05/17/17 08:35 05/17/17 09:00 05/17/17 11:47 White Blood Count 4.8 Red Blood Count 2.51 L Hemoglobin 8.0 L Hematocrit 24.0 L Mean Corpuscular Volume 95.6 Mean Corpuscular Hemoglobin 31.9 Mean Corpuscular Hemoglobin Concent 33.3 Red Cell Distribution Width 16.5 H Platelet Count 227 Mean Platelet Volume 11.7 H Neutrophils % 56.7 Lymphocytes % 26.9 Monocytes % 8.1 Eosinophils % 7.2 H Basophils % 0.7 Nucleated Red Blood Cells % 0.0 Neutrophils # 3.1 Lymphocytes # 1.5 Monocytes # 0.4 Eosinophils # 0.4 Basophils # 0.0 Nucleated Red Blood Cells # 0.0 Absolute Reticulocyte Count 0.151 H Percent Reticulocyte Count 6.0 H Bedside Glucose 143 122 Medications Medications Current Medications Ondansetron HCl (Zofran Tab) 4 mg Q6H PRN PO NAUSEA AND/OR VOMITING; Start at 23:00 Nitroglycerin (Nitroglycerin (Sl Tab) 0.4 Mg) 1 tab Q5M PRN SL CHEST PAIN; Start 04/24/17 at 23:00 Docusate Sodium (Colace) 100 mg Q12H PRN PO CONSTIPATION; Start 04/24/17 at 23 :00 Bisacodyl (Dulcolax) 5 mg DAILY PRN PO CONSTIPATION; Start 04/24/17 at 23:00 Atorvastatin Calcium (Lipitor) 80 mg QHS PO Last administered on 05/16/17t 20: 24; Admin Dose 80 MG; Start 04/25/17 at 21:00 Ergocalciferol (Drisdol) 50,000 unit Mo@09 PO Last administered on 05/13/17 09:40; Admin Dose 50,000 UNIT; Start 04/24/17 at 23:00 Ferrous Sulfate (Ferrous Sulfate (Ec)) 325 mg DAILY PO Last administered on 09:03; Admin Dose 325 MG; Start 04/25/17 at 09:00 Multivit/Ca Carb/ B Cmplx/FA/Prenat (Isabel-Brenda) 1 tab DAILY PO Last administered on 05/17/17 09:03; Admin Dose 1 TAB; Start 04/25/17 at 09:00 Pantoprazole (Protonix Tab) 40 mg DAILY@06 PO Last administered on 05/17/17 06:14; Admin Dose 40 MG; Start 04/25/17 at 06:00 Guaifenesin/ Dextromethorphan (Mucinex Dm) 1 tab BID PO Last administered on 09:03; Admin Dose 1 TAB; Start 04/25/17 at 03:15 Diagnostic Test (Pha) (Accu-Chek) 1 ea 02 XX Last administered on 05/13/17 02 :15; Admin Dose 1 EA; Start 04/26/17 at 02:00 Citric Acid/ Sodium Citrate (Bicitra) 30 ml TID PO Last administered on 09:02; Admin Dose 30 ML; Start 04/25/17 at 13:00 Aspirin (Aspirin) 81 mg DAILY PO Last administered on 04/30/17 10:05; Admin Dose 81 MG; Start 04/25/17 at 12:00; Status Future Hold Heparin Sodium (Porcine) (Heparin (5000 Units/0.5 ml)) 5,000 unit BID SC Last administered on 05/08/17 09:02; Admin Dose 5,000 UNIT; Start 04/26/17 at 09:00 ; Status Future Hold Miscellaneous Information 1 ea NOTE XX Last administered on 04/30/17 17:45; Admin Dose 1 EA; Start 04/25/17 at 12:00 Glucose (Glutose) 15 gm Q15M PRN PO DECREASED GLUCOSE; Start 04/25/17 at 12:00 Glucose (Glutose) 22.5 gm Q15M PRN PO DECREASED GLUCOSE; Start 04/25/17 at 12: 00 Dextrose (D50w Syringe) 25 ml Q15M PRN IV DECREASED GLUCOSE Last administered on 05/08/17 16:08; Admin Dose 25 ML; Start 04/25/17 at 12:00 Dextrose (D50w Syringe) 50 ml Q15M PRN IV DECREASED GLUCOSE Last administered on 05/09/17 00:39; Admin Dose 50 ML; Start 04/25/17 at 12:00 Glucagon (Glucagen) 1 mg Q15M PRN IM DECREASED GLUCOSE; Start 04/25/17 at 12: 00 Glucose (Glutose) 15 gm Q15M PRN BUCCAL DECREASED GLUCOSE; Start 04/25/17 at 12:00 Fish Oil (Fish Oil) 2,000 mg BID PO Last administered on 05/17/17 09:02; Admin Dose 2,000 MG; Start 04/27/17 at 21:00 EZETIMIBE (Zetia) 10 mg DAILY PO Last administered on 05/17/17 09:02; Admin Dose 10 MG; Start 04/28/17 at 09:00 Morphine Sulfate (morphine) 2 mg Q4H PRN IV Pain Last administered on 10:24; Admin Dose 2 MG; Start 04/28/17 at 09:00 Linagliptin (Tradjenta) 5 mg DAILY PO Last administered on 05/17/17 09:02; Admin Dose 5 MG; Start 04/28/17 at 12:00 Tiotropium [place] (Spiriva) 1 inh DAILY INH Last administered on 05/17/17 09 :02; Admin Dose 1 INH; Start 04/30/17 at 13:30 Salmeterol Xinafoate/ Fluticasone (Advair 250/50 Diskus) 1 inh BID INH Last administered on 05/17/17 09:02; Admin Dose 1 INH; Start 04/30/17 at 21:00 Amlodipine Besylate (Norvasc) 5 mg BID PO Last administered on 05/17/17 09:03 ; Admin Dose 5 MG; Start 05/03/17 at 21:00 Carvedilol (Coreg) 3.125 mg BID PO Last administered on 05/17/17 09:04; Admin Dose 3.125 MG; Start 05/04/17 at 09:00 Epoetin Jero (Epogen (Esrd)) 6,000 units TuThSa@17 SC Last administered on 17:34; Admin Dose 6,000 UNITS; Start 05/11/17 at 17:00 Folic Acid (Folic Acid) 1 mg DAILY PO Last administered on 05/17/17 09:02; Admin Dose 1 MG; Start 05/13/17 at 20:30 Zolpidem Tartrate (Ambien) 5 mg HS PRN PO INSOMNIA Last administered on 21:41; Admin Dose 5 MG; Start 05/14/17 at 21:30 Furosemide (Lasix) 20 mg DAILY PO Last administered on 05/17/17 09:03; Admin Dose 20 MG; Start 05/15/17 at 09:00 Insulin Glargine (Lantus) 22 unit BID SC Last administered on 05/17/17 09:05 ; Admin Dose 22 UNIT; Start 05/16/17 at 21:00 MARA GRAYSON MD May 17, 2017 13:57
--- NOTE | 2017-05-17 15:30 | PN ---
Date/Time of Note Date/Time of Note DATE: 05/17/17 TIME: 15:28 Assessment/Plan VTE Prophylaxis VTE Prophylaxis Intervention: SCD's Lines/Catheters IV C[facility]ter Type (from [facility]): PERM CATH. Urinary Cath still in place: No Assessment/Plan Chief Complaint/Hosp Course Assessment and plan 1. Acute respiratory failure secondary to fluid overload. Improved status post dialysis. monitor for now. O2 as needed. 2. Intermittent Mob[place] type I block. A symptomatically present. Corporate Strategist following. Monitor on telemetry. 3. Acute on chronic CHF. Noted with diastolic dysfunction. On dialysis. Stable at present. 4. Moderate distal esophagitis. Continue PPI medication. 5. Pulmonary hypertension. Noted with PA systolic pressure of 44 mmHg. Off O2. Tolerating well. Monitor for now. 6. History of CAD. Patient is status post PTCA. Of note aspirin on hold due to current anemia. 7. Dyslipidemia. Continue on statin medication. 8. Metabolic acidosis. Secondary to renal dysfunction. Bicitra per wooden frame builder. 9. Type 2 diabetes. On insulin regimen. Followed by wooden frame builder. Adjust as needed. 10. Essential hypertension. Continue antihypertensives and adjust needed. 11. DVT of the left popliteal vein. Anticoagulation on hold secondary to anemia. 12. Acute on chronic kidney disease. On dialysis now. Monitor I's. 13. Anemia. Labile at present. Naval Inspector to follow. Disposition and plan: continue anemia workup per cloth sander. Anticipate d/c within the next 24 hours if remains medically stable Discussed plan of care with Dr. York Problems: Subjective 24 Hr Interval Summary Free Text/Dictation appears improved at this time. no specific complaints. comfortable at present Exam/Review of Systems Vital Signs Vitals Vital Signs Date Time Temp Pulse Resp B/P Pulse Ox O2 Delivery O2 Flow Rate FiO2 05/17/17 12:36 62 16 95 21 05/17/17 12:16 97.8 144/76 Intake and Output 05/16/17 05/16/17 05/17/17 15:00 23:00 07:00 Intake Total 1200 ml 400 ml Balance 1200 ml 400 ml Exam Constitutional: alert, oriented Psych: no complaints Head: normocephalic Neck: non-tender, supple Respiratory: clear to auscultation, normal air movement Cardiovascular: regular rate and rhythm Gastrointestinal: non-tender, soft Musculoskeletal: nl extremities to inspection 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: JIG AND FIXTURE MAKER II-XII intact, nl mental status, nl speech Skin: minimal swelling ble Results Result Diagram: 05/17/17 0835 05/15/17 0658 Results 24 hrs Laboratory Tests Test 05/16/17 17:20 05/16/17 20:05 05/17/17 06:58 05/17/17 08:01 Bedside Glucose 179 216 86 Lab Scanned Report REFERENCE LAB Test 05/17/17 08:35 05/17/17 09:00 05/17/17 11:47 White Blood Count 4.8 Red Blood Count 2.51 L Hemoglobin 8.0 L Hematocrit 24.0 L Mean Corpuscular Volume 95.6 Mean Corpuscular Hemoglobin 31.9 Mean Corpuscular Hemoglobin Concent 33.3 Red Cell Distribution Width 16.5 H Platelet Count 227 Mean Platelet Volume 11.7 H Neutrophils % 56.7 Lymphocytes % 26.9 Monocytes % 8.1 Eosinophils % 7.2 H Basophils % 0.7 Nucleated Red Blood Cells % 0.0 Neutrophils # 3.1 Lymphocytes # 1.5 Monocytes # 0.4 Eosinophils # 0.4 Basophils # 0.0 Nucleated Red Blood Cells # 0.0 Absolute Reticulocyte Count 0.151 H Percent Reticulocyte Count 6.0 H Bedside Glucose 143 122 Medications Medications Current Medications Ondansetron HCl (Zofran Tab) 4 mg Q6H PRN PO NAUSEA AND/OR VOMITING; Start at 23:00 Nitroglycerin (Nitroglycerin (Sl Tab) 0.4 Mg) 1 tab Q5M PRN SL CHEST PAIN; Start 04/24/17 at 23:00 Docusate Sodium (Colace) 100 mg Q12H PRN PO CONSTIPATION; Start 04/24/17 at 23 :00 Bisacodyl (Dulcolax) 5 mg DAILY PRN PO CONSTIPATION; Start 04/24/17 at 23:00 Atorvastatin Calcium (Lipitor) 80 mg QHS PO Last administered on 05/16/17 20: 24; Admin Dose 80 MG; Start 04/25/17 at 21:00 Ergocalciferol (Drisdol) 50,000 unit Mo@09 PO Last administered on 05/13/17 09:40; Admin Dose 50,000 UNIT; Start 04/24/17 at 23:00 Ferrous Sulfate (Ferrous Sulfate (Ec)) 325 mg DAILY PO Last administered on 09:03; Admin Dose 325 MG; Start 04/25/17 at 09:00 Multivit/Ca Carb/ B Cmplx/FA/Prenat (Isabel-Brenda) 1 tab DAILY PO Last administered on 05/17/17 09:03; Admin Dose 1 TAB; Start 04/25/17 at 09:00 Pantoprazole (Protonix Tab) 40 mg DAILY@06 PO Last administered on 05/17/17 06:14; Admin Dose 40 MG; Start 04/25/17 at 06:00 Guaifenesin/ Dextromethorphan (Mucinex Dm) 1 tab BID PO Last administered on 09:03; Admin Dose 1 TAB; Start 04/25/17 at 03:15 Diagnostic Test (Pha) (Accu-Chek) 1 ea 02 XX Last administered on 05/13/17 02 :15; Admin Dose 1 EA; Start 04/26/17 at 02:00 Citric Acid/ Sodium Citrate (Bicitra) 30 ml TID PO Last administered on 14:15; Admin Dose 30 ML; Start 04/25/17 at 13:00 Aspirin (Aspirin) 81 mg DAILY PO Last administered on 04/30/17 10:05; Admin Dose 81 MG; Start 04/25/17 at 12:00; Status Future Hold Heparin Sodium (Porcine) (Heparin (5000 Units/0.5 ml)) 5,000 unit BID SC Last administered on 05/08/17 09:02; Admin Dose 5,000 UNIT; Start 04/26/17 at 09:00 ; Status Future Hold Miscellaneous Information 1 ea NOTE XX Last administered on 04/30/17 17:45; Admin Dose 1 EA; Start 04/25/17 at 12:00 Glucose (Glutose) 15 gm Q15M PRN PO DECREASED GLUCOSE; Start 04/25/17 at 12:00 Glucose (Glutose) 22.5 gm Q15M PRN PO DECREASED GLUCOSE; Start 04/25/17 at 12: 00 Dextrose (D50w Syringe) 25 ml Q15M PRN IV DECREASED GLUCOSE Last administered on 05/08/17 16:08; Admin Dose 25 ML; Start 04/25/17 at 12:00 Dextrose (D50w Syringe) 50 ml Q15M PRN IV DECREASED GLUCOSE Last administered on 05/09/17 00:39; Admin Dose 50 ML; Start 04/25/17 at 12:00 Glucagon (Glucagen) 1 mg Q15M PRN IM DECREASED GLUCOSE; Start 04/25/17 at 12: 00 Glucose (Glutose) 15 gm Q15M PRN BUCCAL DECREASED GLUCOSE; Start 04/25/17 at 12:00 Fish Oil (Fish Oil) 2,000 mg BID PO Last administered on 05/17/17 09:02; Admin Dose 2,000 MG; Start 04/27/17 at 21:00 EZETIMIBE (Zetia) 10 mg DAILY PO Last administered on 05/17/17 09:02; Admin Dose 10 MG; Start 04/28/17 at 09:00 Morphine Sulfate (morphine) 2 mg Q4H PRN IV Pain Last administered on 10:24; Admin Dose 2 MG; Start 04/28/17 at 09:00 Linagliptin (Tradjenta) 5 mg DAILY PO Last administered on 05/17/17 09:02; Admin Dose 5 MG; Start 04/28/17 at 12:00 Tiotropium [place] (Spiriva) 1 inh DAILY INH Last administered on 05/17/17 09 :02; Admin Dose 1 INH; Start 04/30/17 at 13:30 Salmeterol Xinafoate/ Fluticasone (Advair 250/50 Diskus) 1 inh BID INH Last administered on 05/17/17 09:02; Admin Dose 1 INH; Start 04/30/17 at 21:00 Amlodipine Besylate (Norvasc) 5 mg BID PO Last administered on 05/17/17 09:03 ; Admin Dose 5 MG; Start 05/03/17 at 21:00 Carvedilol (Coreg) 3.125 mg BID PO Last administered on 05/17/17 09:04; Admin Dose 3.125 MG; Start 05/04/17 at 09:00 Epoetin Jero (Epogen (Esrd)) 6,000 units TuThSa@17 SC Last administered on 17:34; Admin Dose 6,000 UNITS; Start 05/11/17 at 17:00 Folic Acid (Folic Acid) 1 mg DAILY PO Last administered on 05/17/17 09:02; Admin Dose 1 MG; Start 05/13/17 at 20:30 Zolpidem Tartrate (Ambien) 5 mg HS PRN PO INSOMNIA Last administered on 21:41; Admin Dose 5 MG; Start 05/14/17 at 21:30 Furosemide (Lasix) 20 mg DAILY PO Last administered on 05/17/17 09:03; Admin Dose 20 MG; Start 05/15/17 at 09:00 Insulin Glargine (Lantus) 22 unit BID SC Last administered on 05/17/17 09:05 ; Admin Dose 22 UNIT; Start 05/16/17 at 21:00 PERRY JUAREZ May 17, 2017 15:30
--- NOTE | 2017-05-17 16:47 | CONS ---
Date/Time of Note Date/Time of Note DATE: 05/17/17 TIME: 16:46 Assessment/Plan Assessment/Plan Additional Assessment/Plan 1. 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 Acute hyperkalemia due to TROY on CKD - resolved after pt gets started on HD 4. Metabolic acidosis due to worsenign renal failure- resolved after pt gets started on HD 5. H/ CAD S/p previous coronary angiogram as per patient 6. Hypertension 7. Type II DM 8. Hyperlipidemia 9. Acute NSETMI due to CHF 10. severe anemia despite getting PRBC Plan : hepatitis C antibody positive, Hepatitis A antibody positive s/p HD today will keep him on MWF Schedule, Hb remains low around 8.0- on Epogen 6000 units TIW for anemia , Hematology consulted on the case.- no active hemolysis now HD placement confirmed at [facility] center - [facility]ule is TTS- o k tohave next HD on Saturday 4.30pm will follow up Consultation Date/Type/Reason Admit Date/Time Apr 24, 2017 at 19:05 Initial Consult Date 04/25/17 Type of Consultation: NEPHROLOGY Referring Provider: NANY PRIEST ARMHOLE FELLER HANDSTITCHING MACHINE Exam/Review of Systems Vital Signs Vitals Vital Signs Date Time Temp Pulse Resp B/P Pulse Ox O2 Delivery O2 Flow Rate FiO2 05/17/17 16:34 59 16 94 21 05/17/17 16:10 97.5 94/50 Intake and Output 05/16/17 05/16/17 05/17/17 14:59 22:59 06:59 Intake Total 1200 ml 400 ml Balance 1200 ml 400 ml Exam Constitutional: alert ENMT: nl external ears & nose Neck: non-tender, supple Respiratory: clear to auscultation, diminished breath sounds, normal air movement Cardiovascular: nl pulses, regular rate and rhythm Musculoskeletal: nl extremities to inspection Extremities: normal pulses 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: ENGINEERING AND DEVELOPMENT DIRECTOR II-XII intact, nl mental status Results Result Diagram: 05/17/17 0835 05/15/17 0658 Results 24 hrs Laboratory Tests Test 05/16/17 17:20 05/16/17 20:05 05/17/17 06:58 05/17/17 08:01 Bedside Glucose 179 216 86 Lab Scanned Report REFERENCE LAB Test 05/17/17 08:35 05/17/17 09:00 05/17/17 11:47 White Blood Count 4.8 Red Blood Count 2.51 L Hemoglobin 8.0 L Hematocrit 24.0 L Mean Corpuscular Volume 95.6 Mean Corpuscular Hemoglobin 31.9 Mean Corpuscular Hemoglobin Concent 33.3 Red Cell Distribution Width 16.5 H Platelet Count 227 Mean Platelet Volume 11.7 H Neutrophils % 56.7 Lymphocytes % 26.9 Monocytes % 8.1 Eosinophils % 7.2 H Basophils % 0.7 Nucleated Red Blood Cells % 0.0 Neutrophils # 3.1 Lymphocytes # 1.5 Monocytes # 0.4 Eosinophils # 0.4 Basophils # 0.0 Nucleated Red Blood Cells # 0.0 Absolute Reticulocyte Count 0.151 H Percent Reticulocyte Count 6.0 H Bedside Glucose 143 122 Medications Medications Current Medications Ondansetron HCl (Zofran Tab) 4 mg Q6H PRN PO NAUSEA AND/OR VOMITING; Start at 23:00 Nitroglycerin (Nitroglycerin (Sl Tab) 0.4 Mg) 1 tab Q5M PRN SL CHEST PAIN; Start 04/24/17 at 23:00 Docusate Sodium (Colace) 100 mg Q12H PRN PO CONSTIPATION; Start 04/24/17 at 23 :00 Bisacodyl (Dulcolax) 5 mg DAILY PRN PO CONSTIPATION; Start 04/24/17 at 23:00 Atorvastatin Calcium (Lipitor) 80 mg QHS PO Last administered on 05/16/17 20: 24; Admin Dose 80 MG; Start 04/25/17 at 21:00 Ergocalciferol (Drisdol) 50,000 unit Mo@09 PO Last administered on 05/13/17 09:40; Admin Dose 50,000 UNIT; Start 04/24/17 at 23:00 Ferrous Sulfate (Ferrous Sulfate (Ec)) 325 mg DAILY PO Last administered on 09:03; Admin Dose 325 MG; Start 04/25/17 at 09:00 Multivit/Ca Carb/ B Cmplx/FA/Prenat (Isabel-Brenda) 1 tab DAILY PO Last administered on 05/17/17 09:03; Admin Dose 1 TAB; Start 04/25/17 at 09:00 Pantoprazole (Protonix Tab) 40 mg DAILY@06 PO Last administered on 05/17/17 06:14; Admin Dose 40 MG; Start 04/25/17 at 06:00 Guaifenesin/ Dextromethorphan (Mucinex Dm) 1 tab BID PO Last administered on 09:03; Admin Dose 1 TAB; Start 04/25/17 at 03:15 Diagnostic Test (Pha) (Accu-Chek) 1 ea 02 XX Last administered on 05/13/17 02 :15; Admin Dose 1 EA; Start 04/26/17 at 02:00 Citric Acid/ Sodium Citrate (Bicitra) 30 ml TID PO Last administered on 14:15; Admin Dose 30 ML; Start 04/25/17 at 13:00 Aspirin (Aspirin) 81 mg DAILY PO Last administered on 04/30/17 10:05; Admin Dose 81 MG; Start 04/25/17 at 12:00; Status Future Hold Heparin Sodium (Porcine) (Heparin (5000 Units/0.5 ml)) 5,000 unit BID SC Last administered on 05/08/17 09:02; Admin Dose 5,000 UNIT; Start 04/26/17 at 09:00 ; Status Future Hold Miscellaneous Information 1 ea NOTE XX Last administered on 04/30/17 17:45; Admin Dose 1 EA; Start 04/25/17 at 12:00 Glucose (Glutose) 15 gm Q15M PRN PO DECREASED GLUCOSE; Start 04/25/17 at 12:00 Glucose (Glutose) 22.5 gm Q15M PRN PO DECREASED GLUCOSE; Start 04/25/17 at 12: 00 Dextrose (D50w Syringe) 25 ml Q15M PRN IV DECREASED GLUCOSE Last administered on 05/08/17 16:08; Admin Dose 25 ML; Start 04/25/17 at 12:00 Dextrose (D50w Syringe) 50 ml Q15M PRN IV DECREASED GLUCOSE Last administered on 05/09/17 00:39; Admin Dose 50 ML; Start 04/25/17 at 12:00 Glucagon (Glucagen) 1 mg Q15M PRN IM DECREASED GLUCOSE; Start 04/25/17 at 12: 00 Glucose (Glutose) 15 gm Q15M PRN BUCCAL DECREASED GLUCOSE; Start 04/25/17 at 12:00 Fish Oil (Fish Oil) 2,000 mg BID PO Last administered on 05/17/17 09:02; Admin Dose 2,000 MG; Start 04/27/17 at 21:00 EZETIMIBE (Zetia) 10 mg DAILY PO Last administered on 05/17/17 09:02; Admin Dose 10 MG; Start 04/28/17 at 09:00 Morphine Sulfate (morphine) 2 mg Q4H PRN IV Pain Last administered on 10:24; Admin Dose 2 MG; Start 04/28/17 at 09:00 Linagliptin (Tradjenta) 5 mg DAILY PO Last administered on 05/17/17 09:02; Admin Dose 5 MG; Start 04/28/17 at 12:00 Tiotropium [place] (Spiriva) 1 inh DAILY INH Last administered on 05/17/17 09 :02; Admin Dose 1 INH; Start 04/30/17 at 13:30 Salmeterol Xinafoate/ Fluticasone (Advair 250/50 Diskus) 1 inh BID INH Last administered on 05/17/17 09:02; Admin Dose 1 INH; Start 04/30/17 at 21:00 Amlodipine Besylate (Norvasc) 5 mg BID PO Last administered on 05/17/17 09:03 ; Admin Dose 5 MG; Start 05/03/17 at 21:00 Carvedilol (Coreg) 3.125 mg BID PO Last administered on 05/17/17 09:04; Admin Dose 3.125 MG; Start 05/04/17 at 09:00 Epoetin Jero (Epogen (Esrd)) 6,000 units TuThSa@17 SC Last administered on 17:34; Admin Dose 6,000 UNITS; Start 05/11/17 at 17:00 Folic Acid (Folic Acid) 1 mg DAILY PO Last administered on 05/17/17 09:02; Admin Dose 1 MG; Start 05/13/17 at 20:30 Zolpidem Tartrate (Ambien) 5 mg HS PRN PO INSOMNIA Last administered on 21:41; Admin Dose 5 MG; Start 05/14/17 at 21:30 Furosemide (Lasix) 20 mg DAILY PO Last administered on 05/17/17 09:03; Admin Dose 20 MG; Start 05/15/17 at 09:00 Insulin Glargine (Lantus) 22 unit BID SC Last administered on 05/17/17 09:05 ; Admin Dose 22 UNIT; Start 05/16/17 at 21:00 RAQUEL MCDOWELL MD May 17, 2017 16:47
[2017-05-17] MEDS: ATORVASTATIN 80 MG TAB PO SCH (20:43)
[2017-05-17] MEDS: ZOLPIDEM 5 MG TAB PO PRN (22:08)
[2017-05-18] VITALS (8 sets, daily range): BP systolic 106–139; BP diastolic 56–63; PULSE 52–83; RESP 17–19
[2017-05-18] MEDS: ALBUTEROL/IPRATROPIUM (NEB) 3 ML AMP HHN SCH ×4 (00:46→13:00)
[2017-05-18] MEDS: ACCU-CHEK XX SCH (02:00)
[2017-05-18] MEDS: PANTOPRAZOLE (EC) 40 MG TAB PO SCH (05:49)
[2017-05-18] MEDS: INSULIN ASPART [NOVOLOG] 3 ML PEN SC SCH ×4 (07:53→11:59)
[2017-05-18 08:17] LABS: BILIRUBIN,INDIRECT 0.5 mg/dl (0-1.1); BILIRUBIN,TOTAL 0.5 mg/dl (0.2-1.3)
[2017-05-18] MEDS: CITRIC ACID/SODIUM CITRATE 15 ML CUP PO SCH (09:32)
[2017-05-18] MEDS: FISH OIL 1,000 MG CAP PO SCH (09:32)
[2017-05-18] MEDS: MULTIVIT/CA CARB/B CMPLX/FA TAB PO SCH (09:33)
[2017-05-18] MEDS: EZETIMIBE 10 MG TAB PO SCH (09:33)
[2017-05-18] MEDS: AMLODIPINE 5 MG TAB PO SCH (09:33)
[2017-05-18] MEDS: TIOTROPIUM 18 MCG CAPSULE INHA DEV INH SCH (09:33)
[2017-05-18] MEDS: FERROUS SULFATE (EC) 325 MG TAB PO SCH (09:33)
[2017-05-18] MEDS: LINAGLIPTIN 5 MG TABLET PO SCH (09:33)
[2017-05-18] MEDS: FUROSEMIDE 20 MG TAB PO SCH (09:34)
[2017-05-18] MEDS: FOLIC ACID 1 MG TAB PO SCH (09:34)
[2017-05-18] MEDS: SALMETEROL/FLUTICASONE 250/50 INHA INH SCH (09:35)
[2017-05-18] MEDS: INSULIN GLARGINE [LANtus] 3 ML PEN SC SCH (09:41)
[2017-05-18] MEDS: GUAIFENESIN/DM (SR) TAB PO SCH (09:43)
--- NOTE | 2017-05-18 10:29 | CONS ---
Date/Time of Note Date/Time of Note DATE: 05/18/17 TIME: 10:26 Assessment/Plan Assessment/Plan Chief Complaint/Hosp Course Arabic male reporting a 30 year history of diabetes mellitus type 2. He had been on oral agent therapy but as his kidneys declined he was transitioned over to a multiple daily injection regimen using Lantus and NovoLog. He intermittently takes full dose Januvia 100 mg despite his renal dysfunction Problems: (1) Diabetes mellitus type 2 in obese Status: Chronic Comment: Control remains adequate on the current regimen. Please note when he is discharged if his insurance will not cover the Tradjenta the substitute for that is Januvia 25 mg once a day, this is renal dose adjustment. From the standpoint ready for discharge (2) End stage renal disease on dialysis due to type 2 diabetes mellitus Status: Chronic Comment: Stable and on dialysis (3) Hemolytic anemia Status: Acute Comment: As per hematology. This morning CBC is still spent pending as they need to do this is warm specimen since cooling the specimen causes the problem of interpretation. Appears that his hemolysis has settled down. 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 Referring Provider: NANY PRIEST NP 24 HR Interval Summary Constitutional: no complaints (No fevers chills or sweats) Detailed Summary Respiratory: no complaints Cardiovascular: no complaints Exam/Review of Systems Vital Signs Vitals Vital Signs Date Time Temp Pulse Resp B/P Pulse Ox O2 Delivery O2 Flow Rate FiO2 05/18/17 08:00 78 05/18/17 07:26 18 99 21 05/18/17 07:21 98.5 139/62 Intake and Output 05/17/17 05/17/17 05/18/17 15:00 23:00 07:00 Intake Total 500 ml 920 ml 800 ml Output Total 3500 ml Balance -3000 ml 920 ml 800 ml Exam Constitutional: alert, oriented Respiratory: clear to auscultation, normal air movement Cardiovascular: nl pulses, regular rate and rhythm Results Result Diagram: 05/17/17 0835 05/15/17 0658 Results 24 hrs Laboratory Tests Test 05/17/17 11:47 05/17/17 17:38 05/17/17 20:50 05/18/17 06:55 Bedside Glucose 122 137 169 White Blood Count Pending Red Blood Count Pending Hemoglobin Pending Hematocrit Pending Mean Corpuscular Volume Pending Mean Corpuscular Hemoglobin Pending Mean Corpuscular Hemoglobin Concent Pending Red Cell Distribution Width Pending Platelet Count Pending Mean Platelet Volume Pending Absolute Reticulocyte Count Pending Percent Reticulocyte Count Pending Test 05/18/17 06:56 05/18/17 07:53 05/18/17 09:37 Total Bilirubin 0.5 Direct Bilirubin 0.00 Indirect Bilirubin 0.5 Lactate Dehydrogenase 548 Bedside Glucose 113 228 H Medications Medications Current Medications Ondansetron HCl (Zofran Tab) 4 mg Q6H PRN PO NAUSEA AND/OR VOMITING; Start at 23:00 Nitroglycerin (Nitroglycerin (Sl Tab) 0.4 Mg) 1 tab Q5M PRN SL CHEST PAIN; Start 04/24/17 at 23:00 Docusate Sodium (Colace) 100 mg Q12H PRN PO CONSTIPATION; Start 04/24/17 at 23 :00 Bisacodyl (Dulcolax) 5 mg DAILY PRN PO CONSTIPATION; Start 04/24/17 at 23:00 Atorvastatin Calcium (Lipitor) 80 mg QHS PO Last administered on 05/17/17 20: 43; Admin Dose 80 MG; Start 04/25/17 at 21:00 Ergocalciferol (Drisdol) 50,000 unit Mo@09 PO Last administered on 05/13/17 09:40; Admin Dose 50,000 UNIT; Start 04/24/17 at 23:00 Ferrous Sulfate (Ferrous Sulfate (Ec)) 325 mg DAILY PO Last administered on 09:33; Admin Dose 325 MG; Start 04/25/17 at 09:00 Multivit/Ca Carb/ B Cmplx/FA/Prenat (Isabel-Brenda) 1 tab DAILY PO Last administered on 05/18/17 09:33; Admin Dose 1 TAB; Start 04/25/17 at 09:00 Pantoprazole (Protonix Tab) 40 mg DAILY@06 PO Last administered on 05/18/17 05:49; Admin Dose 40 MG; Start 04/25/17 at 06:00 Guaifenesin/ Dextromethorphan (Mucinex Dm) 1 tab BID PO Last administered on 09:43; Admin Dose 1 TAB; Start 04/25/17 at 03:15 Diagnostic Test (Pha) (Accu-Chek) 1 ea 02 XX Last administered on 05/13/17 02 :15; Admin Dose 1 EA; Start 04/26/17 at 02:00 Citric Acid/ Sodium Citrate (Bicitra) 30 ml TID PO Last administered on 09:32; Admin Dose 30 ML; Start 04/25/17 at 13:00 Aspirin (Aspirin) 81 mg DAILY PO Last administered on 04/30/17 10:05; Admin Dose 81 MG; Start 04/25/17 at 12:00; Status Future Hold Heparin Sodium (Porcine) (Heparin (5000 Units/0.5 ml)) 5,000 unit BID SC Last administered on 05/08/17 09:02; Admin Dose 5,000 UNIT; Start 04/26/17 at 09:00 ; Status Future Hold Miscellaneous Information 1 ea NOTE XX Last administered on 04/30/17 17:45; Admin Dose 1 EA; Start 04/25/17 at 12:00 Glucose (Glutose) 15 gm Q15M PRN PO DECREASED GLUCOSE; Start 04/25/17 at 12:00 Glucose (Glutose) 22.5 gm Q15M PRN PO DECREASED GLUCOSE; Start 04/25/17 at 12: 00 Dextrose (D50w Syringe) 25 ml Q15M PRN IV DECREASED GLUCOSE Last administered on 05/08/17 16:08; Admin Dose 25 ML; Start 04/25/17 at 12:00 Dextrose (D50w Syringe) 50 ml Q15M PRN IV DECREASED GLUCOSE Last administered on 05/09/17 00:39; Admin Dose 50 ML; Start 04/25/17 at 12:00 Glucagon (Glucagen) 1 mg Q15M PRN IM DECREASED GLUCOSE; Start 04/25/17 at 12: 00 Glucose (Glutose) 15 gm Q15M PRN BUCCAL DECREASED GLUCOSE; Start 04/25/17 at 12:00 Fish Oil (Fish Oil) 2,000 mg BID PO Last administered on 05/18/17 09:32; Admin Dose 2,000 MG; Start 04/27/17 at 21:00 EZETIMIBE (Zetia) 10 mg DAILY PO Last administered on 05/18/17 09:33; Admin Dose 10 MG; Start 04/28/17 at 09:00 Morphine Sulfate (morphine) 2 mg Q4H PRN IV Pain Last administered on 10:24; Admin Dose 2 MG; Start 04/28/17 at 09:00 Linagliptin (Tradjenta) 5 mg DAILY PO Last administered on 05/18/17 09:33; Admin Dose 5 MG; Start 04/28/17 at 12:00 Tiotropium [place] (Spiriva) 1 inh DAILY INH Last administered on 05/18/17 09 :33; Admin Dose 1 INH; Start 04/30/17 at 13:30 Salmeterol Xinafoate/ Fluticasone (Advair 250/50 Diskus) 1 inh BID INH Last administered on 05/18/17 09:35; Admin Dose 1 INH; Start 04/30/17 at 21:00 Amlodipine Besylate (Norvasc) 5 mg BID PO Last administered on 05/18/17 09:33 ; Admin Dose 5 MG; Start 05/03/17 at 21:00 Carvedilol (Coreg) 3.125 mg BID PO Last administered on 05/18/17 09:35; Admin Dose 3.125 MG; Start 05/04/17 at 09:00 Epoetin Jero (Epogen (Esrd)) 6,000 units TuThSa@17 SC Last administered on 17:34; Admin Dose 6,000 UNITS; Start 05/11/17 at 17:00 Folic Acid (Folic Acid) 1 mg DAILY PO Last administered on 05/18/17 09:34; Admin Dose 1 MG; Start 05/13/17 at 20:30 Zolpidem Tartrate (Ambien) 5 mg HS PRN PO INSOMNIA Last administered on 22:08; Admin Dose 5 MG; Start 05/14/17 at 21:30 Furosemide (Lasix) 20 mg DAILY PO Last administered on 05/18/17 09:34; Admin Dose 20 MG; Start 05/15/17 at 09:00 Insulin Glargine (Lantus) 22 unit BID SC Last administered on 05/18/17 09:41 ; Admin Dose 22 UNIT; Start 05/16/17 at 21:00 MARA GRAYSON MD May 18, 2017 10:29
[2017-05-18] MEDS ORDERED: ASPI81TA3 PO (11:22)
[2017-05-18] MEDS ORDERED: LANT3I SC (11:22)
[2017-05-18] MEDS ORDERED: NOVO3I SC ×2 (11:22)
[2017-05-18] MEDS ORDERED: NEPH PO (11:22)
[2017-05-18] MEDS ORDERED: OMEG1CAP55 PO (11:22)
[2017-05-18] MEDS ORDERED: LAS20 PO (11:22)
[2017-05-18] MEDS ORDERED: FOLI-49 PO (11:22)
[2017-05-18] MEDS ORDERED: EZET10TA32 PO (11:22)
[2017-05-18] MEDS ORDERED: ADV25050 INH (11:22)
[2017-05-18] MEDS ORDERED: CARV3.1260 PO (11:22)
[2017-05-18] MEDS ORDERED: LINA5TAB PO (11:22)
[2017-05-18] MEDS ORDERED: TIOT18CA INH (11:22)
[2017-05-18] MEDS ORDERED: FER325 PO (11:22)
[2017-05-18] MEDS ORDERED: ERGO500037 PO (11:22)
[2017-05-18] MEDS ORDERED: ATOR80TA75 PO (11:22)
[2017-05-18] MEDS ORDERED: AMLO-145 PO (11:22)
--- NOTE | 2017-05-18 11:24 | PN ---
Date/Time of Note Date/Time of Note DATE: 05/18/17 TIME: 11:22 Assessment/Plan VTE Prophylaxis VTE Prophylaxis Intervention: ambulation Lines/Catheters IV [facility]ter Type [facility]from [facility]): PERM CATH. Urinary Cath still in place: No Assessment/Plan Chief Complaint/Hosp Course 66 yo man referred for anemia. I spoke with pt, and Benjamin Velez. In brief he has required RBC transfusions and it is unclear as to how much bleeding there has been. He has numerous medical problems that include diabetes, renal failure requiring dialysis, COPD, CHF, hypertension, dyslipidemia, venous thrombosis on anticoagulation but anticoagulation held because of anemia, esophagitis. No clinical bleeding is presently noted. Problems: Assessment/Plan Pt is stable Hgb is 8.0 but he feels well and can be followed as an outpatient. He and are instructed to call the office and make an appointment to be seen in the office with Dr. Yousif. Subjective 24 Hr Interval Summary Free Text/Dictation Pt and are ready to go home. Exam/Review of Systems Vital Signs Vitals Vital Signs Date Time Temp Pulse Resp B/P Pulse Ox O2 Delivery O2 Flow Rate FiO2 05/18/17 08:00 78 05/18/17 07:26 18 99 21 05/18/17 07:21 98.5 139/62 Intake and Output 05/17/17 05/17/17 05/18/17 15:00 23:00 07:00 Intake Total 500 ml 920 ml 800 ml Output Total 3500 ml Balance -3000 ml 920 ml 800 ml Exam Constitutional: alert, oriented Psych: no complaints Head: normocephalic Eyes: other (pallor) Neck: supple Respiratory: clear to auscultation Cardiovascular: regular rate and rhythm Gastrointestinal: non-tender, soft Results Result Diagram: 05/17/17 0835 05/15/17 0658 Results 24 hrs Laboratory Tests Test 05/17/17 11:47 05/17/17 17:38 05/17/17 20:50 05/18/17 06:55 Bedside Glucose 122 137 169 White Blood Count Pending Red Blood Count Pending Hemoglobin Pending Hematocrit Pending Mean Corpuscular Volume Pending Mean Corpuscular Hemoglobin Pending Mean Corpuscular Hemoglobin Concent Pending Red Cell Distribution Width Pending Platelet Count Pending Mean Platelet Volume Pending Absolute Reticulocyte Count Pending Percent Reticulocyte Count Pending Test 05/18/17 06:56 05/18/17 07:53 05/18/17 09:37 Total Bilirubin 0.5 Direct Bilirubin 0.00 Indirect Bilirubin 0.5 Lactate Dehydrogenase 548 Bedside Glucose 113 228 H Medications Medications Current Medications Ondansetron HCl (Zofran Tab) 4 mg Q6H PRN PO NAUSEA AND/OR VOMITING; Start at 23:00 Nitroglycerin (Nitroglycerin (Sl Tab) 0.4 Mg) 1 tab Q5M PRN SL CHEST PAIN; Start 04/24/17 at 23:00 Docusate Sodium (Colace) 100 mg Q12H PRN PO CONSTIPATION; Start 04/24/17 at 23 :00 Bisacodyl (Dulcolax) 5 mg DAILY PRN PO CONSTIPATION; Start 04/24/17 at 23:00 Atorvastatin Calcium (Lipitor) 80 mg QHS PO Last administered on 05/17/17 20: 43; Admin Dose 80 MG; Start 04/25/17 at 21:00 Ergocalciferol (Drisdol) 50,000 unit Mo@09 PO Last administered on 05/13/17 09:40; Admin Dose 50,000 UNIT; Start 04/24/17 at 23:00 Ferrous Sulfate (Ferrous Sulfate (Ec)) 325 mg DAILY PO Last administered on 09:33; Admin Dose 325 MG; Start 04/25/17 at 09:00 Multivit/Ca Carb/ B Cmplx/FA/Prenat (Isabel-Brenda) 1 tab DAILY PO Last administered on 05/18/17 09:33; Admin Dose 1 TAB; Start 04/25/17 at 09:00 Pantoprazole (Protonix Tab) 40 mg DAILY@06 PO Last administered on 05/18/17 05:49; Admin Dose 40 MG; Start 04/25/17 at 06:00 Guaifenesin/ Dextromethorphan (Mucinex Dm) 1 tab BID PO Last administered on 09:43; Admin Dose 1 TAB; Start 04/25/17 at 03:15 Diagnostic Test (Pha) (Accu-Chek) 1 ea 02 XX Last administered on 05/13/17 02 :15; Admin Dose 1 EA; Start 04/26/17 at 02:00 Citric Acid/ Sodium Citrate (Bicitra) 30 ml TID PO Last administered on 09:32; Admin Dose 30 ML; Start 04/25/17 at 13:00 Aspirin (Aspirin) 81 mg DAILY PO Last administered on 04/30/17 10:05; Admin Dose 81 MG; Start 04/25/17 at 12:00; Status Future Hold Heparin Sodium (Porcine) (Heparin (5000 Units/0.5 ml)) 5,000 unit BID SC Last administered on 05/08/17 09:02; Admin Dose 5,000 UNIT; Start 04/26/17 at 09:00 ; Status Future Hold Miscellaneous Information 1 ea NOTE XX Last administered on 04/30/17 17:45; Admin Dose 1 EA; Start 04/25/17 at 12:00 Glucose (Glutose) 15 gm Q15M PRN PO DECREASED GLUCOSE; Start 04/25/17 at 12:00 Glucose (Glutose) 22.5 gm Q15M PRN PO DECREASED GLUCOSE; Start 04/25/17 at 12: 00 Dextrose (D50w Syringe) 25 ml Q15M PRN IV DECREASED GLUCOSE Last administered on 05/08/17 16:08; Admin Dose 25 ML; Start 04/25/17 at 12:00 Dextrose (D50w Syringe) 50 ml Q15M PRN IV DECREASED GLUCOSE Last administered on 05/09/17 00:39; Admin Dose 50 ML; Start 04/25/17 at 12:00 Glucagon (Glucagen) 1 mg Q15M PRN IM DECREASED GLUCOSE; Start 04/25/17 at 12: 00 Glucose (Glutose) 15 gm Q15M PRN BUCCAL DECREASED GLUCOSE; Start 04/25/17 at 12:00 Fish Oil (Fish Oil) 2,000 mg BID PO Last administered on 05/18/17 09:32; Admin Dose 2,000 MG; Start 04/27/17 at 21:00 EZETIMIBE (Zetia) 10 mg DAILY PO Last administered on 05/18/17 09:33; Admin Dose 10 MG; Start 04/28/17 at 09:00 Morphine Sulfate (morphine) 2 mg Q4H PRN IV Pain Last administered on 10:24; Admin Dose 2 MG; Start 04/28/17 at 09:00 Linagliptin (Tradjenta) 5 mg DAILY PO Last administered on 05/18/17 09:33; Admin Dose 5 MG; Start 04/28/17 at 12:00 Tiotropium [place] (Spiriva) 1 inh DAILY INH Last administered on 05/18/17 09 :33; Admin Dose 1 INH; Start 04/30/17 at 13:30 Salmeterol Xinafoate/ Fluticasone (Advair 250/50 Diskus) 1 inh BID INH Last administered on 05/18/17 09:35; Admin Dose 1 INH; Start 04/30/17 at 21:00 Amlodipine Besylate (Norvasc) 5 mg BID PO Last administered on 05/18/17 09:33 ; Admin Dose 5 MG; Start 05/03/17 at 21:00 Carvedilol (Coreg) 3.125 mg BID PO Last administered on 05/18/17 09:35; Admin Dose 3.125 MG; Start 05/04/17 at 09:00 Epoetin Jero (Epogen (Esrd)) 6,000 units TuThSa@17 SC Last administered on 17:34; Admin Dose 6,000 UNITS; Start 05/11/17 at 17:00 Folic Acid (Folic Acid) 1 mg DAILY PO Last administered on 05/18/17 09:34; Admin Dose 1 MG; Start 05/13/17 at 20:30 Zolpidem Tartrate (Ambien) 5 mg HS PRN PO INSOMNIA Last administered on 22:08; Admin Dose 5 MG; Start 05/14/17 at 21:30 Furosemide (Lasix) 20 mg DAILY PO Last administered on 05/18/17 09:34; Admin Dose 20 MG; Start 05/15/17 at 09:00 Insulin Glargine (Lantus) 22 unit BID SC Last administered on 05/18/17 09:41 ; Admin Dose 22 UNIT; Start 05/16/17 at 21:00 WILLIAM YEE MD May 18, 2017 11:24
--- NOTE | 2017-05-18 11:30 | PDOCDIS ---
Discharge Instructions DIAGNOSIS Discharge Diagnosis 1. Acute respiratory failure secondary to fluid overload. 2. Intermittent Mobitz type I block. 3. Acute on chronic CHF. 4. Moderate distal esophagitis. 5. Pulmonary hypertension. 6. History of CAD. 7. Dyslipidemia. 8. Metabolic acidosis. 9. Type 2 diabetes. 10. Essential hypertension. 11. DVT of the left popliteal vein. 12. Acute on chronic kidney disease. 13. Anemia. CONDITION Patient Condition: Stable HOME CARE INSTRUCTIONS: Special Diet: RENAL DIET. FOLLOW UP/APPOINTMENTS Follow-up Plan 1. Follow up with Dr. Herberth Craft in one week Office Address [id number] [facility] [address] [place] [address] Office 2. Follow up with Dr. Alcides Johnson in one week Office Address [address] [facility] [address] [place] [address] Office 3. Follow up with Dr. Roni Tobar in two week Office Address [id number] [facility] [address] [place] [address] Office 4. Follow up with Dr. Dell De La Torre in one week Office Address [facility] [address] [place] [address] Office OTHER ORDERS: Other Orders: Follow up with your dialysis center for your regular dialysis: Saturday, , Saturday. Follow up with Dr. Roni Tobar in 2 weeks PERRY JUAREZ May 18, 2017 11:30
[2017-05-18 12:43] LABS: ABNORMAL IP MESSAGE 1; BASOPHIL # 0.1 10^3/ul (0.0-0.1); BASOPHILS % 0.9 % (0.0-2.0); EOSINOPHILS # 0.4 10^3/ul (0.0-0.5); HEMATOCRIT 23.5 % (42.0-52.0); LYMPHOCYTES # 1.4 10^3/ul (0.8-2.9); LYMPHOCYTES % 26.5 % (15.0-51.0); MEAN CORPUSCULAR HEMOGLOBIN 31.6 pg (29.0-33.0); MEAN CORPUSCULAR HGB CONC 32.8 g/dl (32.0-37.0); MEAN CORPUSCULAR VOLUME 96.3 fl (82.0-101.0); MEAN PLATELET VOLUME 12.4 fl (7.4-10.4); MONOCYTE # 0.7 10^3/ul (0.3-0.9); MONOCYTES % 12.2 % (0.0-11.0); NEUTROPHIL # 2.9 10^3/ul (1.6-7.5); NEUTROPHILS % 53.2 % (39.0-77.0); POSITIVE DIFF @See below; RED BLOOD COUNT 2.44 10^6/ul (4.70-6.10); RED CELL DISTRIBUTION WIDTH 16.4 % (11.5-14.5); RETICULOCYTE COUNT % 6.3 % (0.5-1.5); WHITE BLOOD COUNT 5.4 10^3/ul (4.8-10.8)
--- NOTE | 2017-05-18 12:56 | CONS ---
Date/Time of Note Date/Time of Note DATE: 05/18/17 TIME: 12:54 Assessment/Plan Assessment/Plan Additional Assessment/Plan 1. 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 Acute hyperkalemia due to TROY on CKD - resolved after pt gets started on HD 4. Metabolic acidosis due to worsenign renal failure- resolved after pt gets started on HD 5. H/ CAD S/p previous coronary angiogram as per patient 6. Hypertension 7. Type II DM 8. Hyperlipidemia 9. Acute NSETMI due to CHF 10. severe anemia despite getting PRBC Plan : Discharged home today hepatitis C antibody positive, Hepatitis A antibody positive s/p HD today will keep him on MWF Schedule, Hb remains low around 8.0- on Epogen 6000 units TIW for anemia , Hematology consulted on the case.- no active hemolysis now HD placement confirmed at [facility] - [facility] is TTS- o k tohave next HD on Saturday 4.30pm Consultation Date/Type/Reason Admit Date/Time Apr 24, 2017 at 19:05 Initial Consult Date 05/01/17 Type of Consultation: Endocrinology Referring Provider: NANY PRIEST NP 24 HR Interval Summary Free Text/Dictation sitting up in chair. at bed side- all Qs answered discharged tp go home today no events reported overnight Detailed Summary Respiratory: no complaints Cardiovascular: no complaints Gastrointestinal: no complaints Genitourinary: no complaints Musculoskeletal: no complaints Exam/Review of Systems Vital Signs Vitals Vital Signs Date Time Temp Pulse Resp B/P Pulse Ox O2 Delivery O2 Flow Rate FiO2 05/18/17 12:00 83 05/18/17 11:21 98.4 18 127/61 94 05/18/17 07:26 21 Intake and Output 05/17/17 05/17/17 05/18/17 15:00 23:00 07:00 Intake Total 500 ml 920 ml 800 ml Output Total 3500 ml Balance -3000 ml 920 ml 800 ml Results Result Diagram: 05/17/17 0835 05/15/17 0658 Results 24 hrs Laboratory Tests Test 05/17/17 17:38 05/17/17 20:50 05/18/17 06:55 05/18/17 06:56 Bedside Glucose 137 169 White Blood Count Pending Red Blood Count Pending Hemoglobin Pending Hematocrit Pending Mean Corpuscular Volume Pending Mean Corpuscular Hemoglobin Pending Mean Corpuscular Hemoglobin Concent Pending Red Cell Distribution Width Pending Platelet Count Pending Mean Platelet Volume Pending Absolute Reticulocyte Count Pending Percent Reticulocyte Count Pending Total Bilirubin 0.5 Direct Bilirubin 0.00 Indirect Bilirubin 0.5 Lactate Dehydrogenase 548 Test 05/18/17 07:53 05/18/17 09:37 05/18/17 11:52 Bedside Glucose 113 228 H 203 Medications Medications Current Medications Ondansetron HCl (Zofran Tab) 4 mg Q6H PRN PO NAUSEA AND/OR VOMITING; Start at 23:00 Nitroglycerin (Nitroglycerin (Sl Tab) 0.4 Mg) 1 tab Q5M PRN SL CHEST PAIN; Start 04/24/17 at 23:00 Docusate Sodium (Colace) 100 mg Q12H PRN PO CONSTIPATION; Start 04/24/17 at 23 :00 Bisacodyl (Dulcolax) 5 mg DAILY PRN PO CONSTIPATION; Start 04/24/17 at 23:00 Atorvastatin Calcium (Lipitor) 80 mg QHS PO Last administered on 05/17/17 20: 43; Admin Dose 80 MG; Start 04/25/17 at 21:00 Ergocalciferol (Drisdol) 50,000 unit Mo@09 PO Last administered on 05/13/17 09:40; Admin Dose 50,000 UNIT; Start 04/24/17 at 23:00 Ferrous Sulfate (Ferrous Sulfate (Ec)) 325 mg DAILY PO Last administered on 09:33; Admin Dose 325 MG; Start 04/25/17 at 09:00 Multivit/Ca Carb/ B Cmplx/FA/Prenat (Isabel-Brenda) 1 tab DAILY PO Last administered on 05/18/17 09:33; Admin Dose 1 TAB; Start 04/25/17 at 09:00 Pantoprazole (Protonix Tab) 40 mg DAILY@06 PO Last administered on 05/18/17 05:49; Admin Dose 40 MG; Start 04/25/17 at 06:00 Guaifenesin/ Dextromethorphan (Mucinex Dm) 1 tab BID PO Last administered on 09:43; Admin Dose 1 TAB; Start 04/25/17 at 03:15 Diagnostic Test (Pha) (Accu-Chek) 1 ea 02 XX Last administered on 05/13/17 02 :15; Admin Dose 1 EA; Start 04/26/17 at 02:00 Citric Acid/ Sodium Citrate (Bicitra) 30 ml TID PO Last administered on 09:32; Admin Dose 30 ML; Start 04/25/17 at 13:00 Aspirin (Aspirin) 81 mg DAILY PO Last administered on 04/30/17 10:05; Admin Dose 81 MG; Start 04/25/17 at 12:00; Status Future Hold Heparin Sodium (Porcine) (Heparin (5000 Units/0.5 ml)) 5,000 unit BID SC Last administered on 05/08/17 09:02; Admin Dose 5,000 UNIT; Start 04/26/17 at 09:00 ; Status Future Hold Miscellaneous Information 1 ea NOTE XX Last administered on 04/30/17 17:45; Admin Dose 1 EA; Start 04/25/17 at 12:00 Glucose (Glutose) 15 gm Q15M PRN PO DECREASED GLUCOSE; Start 04/25/17 at 12:00 Glucose (Glutose) 22.5 gm Q15M PRN PO DECREASED GLUCOSE; Start 04/25/17 at 12: 00 Dextrose (D50w Syringe) 25 ml Q15M PRN IV DECREASED GLUCOSE Last administered on 05/08/17 16:08; Admin Dose 25 ML; Start 04/25/17 at 12:00 Dextrose (D50w Syringe) 50 ml Q15M PRN IV DECREASED GLUCOSE Last administered on 05/09/17 00:39; Admin Dose 50 ML; Start 04/25/17 at 12:00 Glucagon (Glucagen) 1 mg Q15M PRN IM DECREASED GLUCOSE; Start 04/25/17 at 12: 00 Glucose (Glutose) 15 gm Q15M PRN BUCCAL DECREASED GLUCOSE; Start 04/25/17 at 12:00 Fish Oil (Fish Oil) 2,000 mg BID PO Last administered on 05/18/17 09:32; Admin Dose 2,000 MG; Start 04/27/17 at 21:00 EZETIMIBE (Zetia) 10 mg DAILY PO Last administered on 05/18/17 09:33; Admin Dose 10 MG; Start 04/28/17 at 09:00 Morphine Sulfate (morphine) 2 mg Q4H PRN IV Pain Last administered on 10:24; Admin Dose 2 MG; Start 04/28/17 at 09:00 Linagliptin (Tradjenta) 5 mg DAILY PO Last administered on 05/18/17 09:33; Admin Dose 5 MG; Start 04/28/17 at 12:00 Tiotropium [place] (Spiriva) 1 inh DAILY INH Last administered on 05/18/17 09 :33; Admin Dose 1 INH; Start 04/30/17 at 13:30 Salmeterol Xinafoate/ Fluticasone (Advair 250/50 Diskus) 1 inh BID INH Last administered on 05/18/17 09:35; Admin Dose 1 INH; Start 04/30/17 at 21:00 Amlodipine Besylate (Norvasc) 5 mg BID PO Last administered on 05/18/17 09:33 ; Admin Dose 5 MG; Start 05/03/17 at 21:00 Carvedilol (Coreg) 3.125 mg BID PO Last administered on 05/18/17 09:35; Admin Dose 3.125 MG; Start 05/04/17 at 09:00 Epoetin Jero (Epogen (Esrd)) 6,000 units TuThSa@17 SC Last administered on 17:34; Admin Dose 6,000 UNITS; Start 05/11/17 at 17:00 Folic Acid (Folic Acid) 1 mg DAILY PO Last administered on 05/18/17 09:34; Admin Dose 1 MG; Start 05/13/17 at 20:30 Zolpidem Tartrate (Ambien) 5 mg HS PRN PO INSOMNIA Last administered on 22:08; Admin Dose 5 MG; Start 05/14/17 at 21:30 Furosemide (Lasix) 20 mg DAILY PO Last administered on 05/18/17 09:34; Admin Dose 20 MG; Start 05/15/17 at 09:00 Insulin Glargine (Lantus) 22 unit BID SC Last administered on 05/18/17 09:41 ; Admin Dose 22 UNIT; Start 05/16/17 at 21:00 CATARINA GONCALVES May 18, 2017 12:56
[2017-05-18 12:58] LABS: HEMOGLOBIN 7.7 g/dl (14.0-18.0); PLATELET COUNT 209 10^3/UL (140-415)
[2017-05-21 16:46] LABS: MYCOPLASMA PNEUMONIAE AB (IGG) < OR = 0.90
== END 2017-05-18 14:29 | disposition home or self-care (01) | DRG 189 ==
LOC: E/R 15:30 → TEL 19:05
PROVIDERS: ADMIT Family Medicine; ATTEND Family Medicine
PROC: B54BZZA Ultrasonography of Right Lower Extremity Veins, Guidance (ICD-10-PCS; 2017-04-29)
PROC: 5A1D70Z Performance of Urinary Filtration, Intermittent, Less than 6 Hours Per Day (ICD-10-PCS; 2017-04-29)
PROC: 30233N1 Transfusion of Nonautologous Red Blood Cells into Peripheral Vein, Percutaneous Approach (ICD-10-PCS; 2017-04-29)
PROC: 06HM33Z Insertion of Infusion Device into Right Femoral Vein, Percutaneous Approach (ICD-10-PCS; principal; 2017-04-29 16:30)
PROC: 0DB68ZX Excision of Stomach, Via Natural or Artificial Opening Endoscopic, Diagnostic (ICD-10-PCS; 2017-05-03)
PROC: 0DJD8ZZ Inspection of Lower Intestinal Tract, Via Natural or Artificial Opening Endoscopic (ICD-10-PCS; 2017-05-03)
PROC: 05HM33Z Insertion of Infusion Device into Right Internal Jugular Vein, Percutaneous Approach (ICD-10-PCS; 2017-05-04)
PROC: B543ZZA Ultrasonography of Right Jugular Veins, Guidance (ICD-10-PCS; 2017-05-04)
DX: J96.01 Acute respiratory failure with hypoxia (principal); I21.A1 Myocardial infarction type 2; N17.0 Acute kidney failure with tubular necrosis; I50.33 Acute on chronic diastolic (congestive) heart failure; R65.10 Systemic inflammatory response syndrome (SIRS) of non-infectious origin without acute organ dysfunction; N18.6 End stage renal disease; I13.0 Hypertensive heart and chronic kidney disease with heart failure and stage 1 through stage 4 chronic kidney disease, or unspecified chronic kidney disease; I11.0 Hypertensive heart disease with heart failure; J81.1 Chronic pulmonary edema; I44.1 Atrioventricular block, second degree; E87.2 Acidosis; D62 Acute posthemorrhagic anemia; J44.1 Chronic obstructive pulmonary disease with (acute) exacerbation; I82.432 Acute embolism and thrombosis of left popliteal vein; N39.0 Urinary tract infection, site not specified; D58.9 Hereditary hemolytic anemia, unspecified; E11.21 Type 2 diabetes mellitus with diabetic nephropathy; I45.10 Unspecified right bundle-branch block; I44.0 Atrioventricular block, first degree; D63.1 Anemia in chronic kidney disease; E11.22 Type 2 diabetes mellitus with diabetic chronic kidney disease; M10.9 Gout, unspecified; K21.9 Gastro-esophageal reflux disease without esophagitis; E87.5 Hyperkalemia; I25.10 Atherosclerotic heart disease of native coronary artery without angina pectoris; Z95.5 Presence of coronary angioplasty implant and graft; E78.5 Hyperlipidemia, unspecified; Z99.2 Dependence on renal dialysis; E79.0 Hyperuricemia without signs of inflammatory arthritis and tophaceous disease; I27.20 Pulmonary hypertension, unspecified; B19.20 Unspecified viral hepatitis C without hepatic coma; E11.40 Type 2 diabetes mellitus with diabetic neuropathy, unspecified; B95.1 Streptococcus, group B, as the cause of diseases classified elsewhere; I25.2 Old myocardial infarction; E11.65 Type 2 diabetes mellitus with hyperglycemia; Z79.4 Long term (current) use of insulin; K20.8 Other esophagitis; K29.60 Other gastritis without bleeding; Z98.0 Intestinal bypass and anastomosis status
CPT/HCPCS: 36415; 36430; 71010; 71020; 74000; 74176; 74250; 76775; 80048; 80053; 80061; 80202; 81001; 82247; 82248; 82270; 82550; 82553; 82570; 82595; 82607; 82728; 82746; 82784; 82947; 82955; 82962; 83010; 83036; 83540; 83605; 83615; 83735; 83880; 83930; 83935; 84100; 84155; 84156; 84165; 84166; 84300; 84443; 84484; 85014; 85018; 85025; 85045; 85610; 85730; 86038; 86157; 86320; 86325; 86644; 86703; 86706; 86708; 86738; 86803; 86850; 86870; 86880; 86885; 86900; 86901; 86902; 86906; 86920; 86970; 86971; 86978; 87040; 87086; 87340; 88305; 88312; 89190; 90935; 93005; 93306; 93923; 93970; 94640; 94664; 97110; 97116; 97163; 97530; J1940; C1752; J0360; J0690; J0692; J0886; J1644; J1815; J2250; J2270; J2920; J2930; J2997; J3370; J3420; J3475; J3480; J7030; J7040; P9016; P9047; Q9967

== ENCOUNTER 2017-05-21 21:25 | Inpatient (IN) | END 2017-05-24 13:37 | disposition home or self-care (01) | DRG 252 ==

== ENCOUNTER 2017-07-02 09:27 | Day surgery (SDC) | END 2017-07-02 13:55 | disposition home or self-care (01) ==

== ENCOUNTER 2017-10-18 05:43 | Day surgery (SDC) | END 2017-10-18 09:41 | disposition home or self-care (01) ==

== ENCOUNTER 2017-11-05 09:07 | Day surgery (SDC) | END 2017-11-05 11:20 | disposition home or self-care (01) ==

== ENCOUNTER 2017-11-05 12:32 | Inpatient (IN) | END 2017-11-07 19:32 | disposition home or self-care (01) | DRG 981 ==

== ENCOUNTER 2018-08-28 13:14 | Inpatient (IN) | payer MEDICARE, BC ==
[~2018-08-28] VITALS: Ht 167.6 cm; Wt 100.6 kg
[~2018-08-28 13:14] MED LIST changes: +AMLO-145 PO; -ATOR20TA17; -CLOP75TA19; -ESOM20CA; +EZET10TA31 PO; +FOLI-49 PO; +ICOS1CAP PO; +INSU100C SQ; -INSU100I15; +LANT3I SC; -METF500T4; +NEPH PO; -PIOG15TA12; -PREG150C; -WARF7.5T; -ZOLP5TAB
[2018-08-28] MEDS ORDERED: morphine 4 MG/ML VIAL IV STA (15:39)
[2018-08-28] MEDS ORDERED: ONDANSETRON 4 MG INJ IV STA (15:39)
[2018-08-28] MEDS ORDERED: CEFEPIME 2GM/50 ML (PMX) 50 ML IVPB STA (15:39)
[2018-08-28] MEDS ORDERED: VANCOMYCIN 1 GM (PMX) 250 ML IVPB ONE (16:00)
[2018-08-28] MEDS ORDERED: APIX5TAB PO (16:30)
[2018-08-28] MEDS ORDERED: SEVE800T7 PO (16:30)
[2018-08-28] MEDS ORDERED: FURO80TA3 PO (16:31)
[2018-08-28] MEDS ORDERED: FOLI-49 PO (16:31)
[2018-08-28] MEDS ORDERED: NEPH PO (16:31)
[2018-08-28] MEDS ORDERED: METO5TAB65 PO (16:32)
[2018-08-28] MEDS ORDERED: LANT3I SC (16:33)
[2018-08-28] MEDS ORDERED: INSU100I12 SQ (16:34)
[2018-08-28] MEDS ORDERED: CA CHLORIDE 10% 10 ML SYRINGE IV STA (17:23)
[2018-08-28] MEDS ORDERED: NA BICARBONATE 8.4% 50 ML SYG IV STA (17:23)
[2018-08-28] MEDS ORDERED: ACETAMINOPHEN 325 MG TAB PO PRN (17:30)
[2018-08-28] MEDS ORDERED: ONDANSETRON 4 MG INJ IV PRN (17:30)
[2018-08-28] MEDS ORDERED: INSULIN ASPART [NOVOLOG] 3 ML PEN SC SCH (18:00)
[2018-08-28] MEDS: INSULIN ASPART [NOVOLOG] 3 ML PEN SC SCH ×2 (18:00→21:00)
--- NOTE | 2018-08-28 18:23 | HP ---
Date/Time of Note Date/Time of Note DATE: 08/28/18 TIME: 18:16 Assessment/Plan VTE Prophylaxis SCD applied (from Nsg): Yes Pharmacological prophylaxis: heparin Lines/Catheters IV Catheter Type (from Nrsg): Saline Lock Assessment/Plan Hospital Course 67 yo male with PAD, DMII, and ESRD who presents with b/l foot pain - I suspect this is from vascular insufficiency. Cellulitis is a possibility but seems less likely as feet are not with rubor, no leukocytosis and no systemic symptoms - Will start on heparin drip - Pain control - Dr Marie from podiatry and Dr Barker from general surgery have been consulted DMII: - basal/bolus insulin ESRD: - HD per Dr Tobar Hyperkalemia - Treated in ED PAD: - Aspirin and statin Result Diagram: 08/28/18 1606 08/28/18 1605 Results 24hrs Laboratory Tests Test 08/28/18 16:03 08/28/18 16:05 08/28/18 16:06 POC Venous Lactate 2.6 *H Prothrombin Time 14.2 Prothrombin Time Ratio 1.1 INR International Normalized Ratio 1.09 Activated Partial Thromboplast Time 34.4 Sodium Level 136 Potassium Level 6.0 H Chloride Level 89 L Carbon Dioxide Level 28 Anion Gap 19 H Blood Urea Nitrogen 76 H Creatinine 10.00 H Est Glomerular Filtrat Rate mL/min 5 L Glucose Level 229 H Calcium Level 9.2 Total Bilirubin 0.2 Direct Bilirubin 0.00 Indirect Bilirubin 0.2 Aspartate Amino Transf (AST/SGOT) 13 L Alanine Aminotransferase (ALT/SGPT) < 6 L Alkaline Phosphatase 58 Troponin I < 0.012 Total Protein 9.4 H Albumin 4.7 Globulin 4.70 H Albumin/Globulin Ratio 1.00 White Blood Count 8.9 Red Blood Count 4.15 L Hemoglobin 12.2 L Hematocrit 38.4 L Mean Corpuscular Volume 92.5 Mean Corpuscular Hemoglobin 29.4 Mean Corpuscular Hemoglobin Concent 31.8 L Red Cell Distribution Width 14.4 Platelet Count 190 Mean Platelet Volume 11.6 H Immature Granulocytes % 0.300 Neutrophils % 62.6 Lymphocytes % 23.3 Monocytes % 11.2 H Eosinophils % 2.0 Basophils % 0.6 Nucleated Red Blood Cells % 0.0 Immature Granulocytes # 0.030 Neutrophils # 5.6 Lymphocytes # 2.1 Monocytes # 1.0 H Eosinophils # 0.2 Basophils # 0.1 Nucleated Red Blood Cells # 0.0 HPI/ROS Admit Date/Time Admit Date/Time Hx of Present Illness 67 yo male with DMII, ESRD, and PAD presents with painful feet b/l Feet have become painful and swollen most pronounced distally. Also have become red and inflammed. Seems the left foot is a bit worse than the right foot. Denies fevers or chills. No open wounds. Came to ED because of severe pain. ROS Constitutional: no complaints, improved Eyes: no complaints ENT: no complaints Respiratory: no complaints Cardiovascular: no complaints Gastrointestinal: no complaints Genitourinary: no complaints Musculoskeletal: no complaints Skin: no complaints Neurologic: no complaints Endocrine: no complaints Lymphatic: no complaints Psychological: no complaints, nl mood/affect Immunologic: no complaints PMH/Family/Social Past Medical History ESRD PAD DMII Medications Current Medications Ondansetron HCl (Zofran Inj) 4 mg ER BRIDGE PRN IV NAUSEA/VOMITING; Start 08/28/18 at 17:30; Stop 08/29/18 at 17:29 Acetaminophen (Tylenol Tab) 650 mg ER BRIDGE PRN PO .MILD PAIN 1-3 OR TEMP; Start 08/28/18 at 17:30; Stop 08/29/18 at 17:29 Furosemide (Lasix) 160 mg BID PO ; Start 08/28/18 at 21:00 Metolazone (Zaroxolyn) 10 mg BID PO ; Start 08/28/18 at 21:00 Multivit/Ca Carb/ B Cmplx/FA/Prenat (Isabel-Brenda) 1 tab DAILY PO ; Start 08/29/18 at 09:00 Sevelamer Carbonate (Renvela) 0.8 gm WITH MEALS PO ; Start 08/28/18 at 18:00 Insulin Glargine (Lantus) 15 units DAILY@2000 SC ; Start 08/28/18 at 20:00 Insulin Aspart (Novolog Insulin Pen) NOVOLOG *MILD* ALGORITHM WITH MEALS BEDTIME SC ; Start 08/28/18 at 18:00 Insulin Aspart (Novolog Insulin Pen) 5 unit WITH MEALS SC ; Start 08/28/18 at 18:00 Miscellaneous Information 1 ea NOTE XX ; Start 08/28/18 at 18:30 Glucose (Glutose) 15 gm Q15M PRN PO DECREASED GLUCOSE; Start 08/28/18 at 18:30 Glucose (Glutose) 22.5 gm Q15M PRN PO DECREASED GLUCOSE; Start 08/28/18 at 18:30 Dextrose (D50w Syringe) 25 ml Q15M PRN IV DECREASED GLUCOSE; Start 08/28/18 at 18:30 Dextrose (D50w Syringe) 50 ml Q15M PRN IV DECREASED GLUCOSE; Start 08/28/18 at 18:30 Glucagon (Glucagen) 1 mg Q15M PRN IM DECREASED GLUCOSE; Start 08/28/18 at 18:30 Glucose (Glutose) 15 gm Q15M PRN BUCCAL DECREASED GLUCOSE; Start 08/28/18 at 18:30 Coded Allergies: No Known Allergies (Verified Allergy, Mild, 08/28/18) Past Surgical History Past Surgical Hx: no surgical history, other Family History Significant Family History: no pertinent family hx Social History Alcohol Use: none Smoking Status: Never smoker Drug Use: none Exam/Review of Systems Vital Signs Vitals Vital Signs Date Temp Pulse Resp B/P (MAP) Pulse Ox O2 O2 Flow FiO2 Time Delivery Rate 08/28/18 97.8 65 21 152/63 95 Room Air 18:12 (92) 08/28/18 2 15:53 Exam Exam Alert and oriented Appears uncomfortable RRR Breathing comfortably LUE fistula Soft nt nd Edema in legs b/l Feet are warm. B/l all toes are red and erythematous into the forefoot. L foot is insensate. Calves are tender to touch PAUL LINDER MD Aug 28, 2018 18:23
[2018-08-28] MEDS ORDERED: morphine 2 MG INJ IV STA (18:26)
[2018-08-28] MEDS ORDERED: GLUCAGON 1 MG INJ IM PRN (18:30)
[2018-08-28] MEDS ORDERED: VANCOMYCIN IV PER PHARMACY XX SCH (18:30)
[2018-08-28] MEDS ORDERED: DEXTROSE 50% 50 ML SYRINGE IV PRN ×2 (18:30)
[2018-08-28] MEDS ORDERED: NACL 0.9% 3 ML SYG IV SCH (18:30)
[2018-08-28] MEDS ORDERED: HYDROmorphONE 0.5 MG/0.5 ML SYG IV PRN (18:30)
[2018-08-28] MEDS ORDERED: GLUCOSE GEL 15 GRAM TUBE BUCCAL PRN (18:30)
[2018-08-28] MEDS ORDERED: GLUCOSE GEL 15 GRAM TUBE PO PRN ×2 (18:30)
--- NOTE | 2018-08-28 18:55 | ERD ---
ER Documentation Chief Complaint Chief Complaint L lower leg pain/swelling X 5 days, dialysis m/w/f, Hx DVT HPI Patient is a 67-year-old male with diabetes and end-stage renal disease on dialysis who presents with left leg swelling and left foot pain. He also has bleeding from the left foot. This is been there for the past 5 days and he has redness to the area as well as severe pain. The patient has multiple visits to the ER upon review of old medical records. The patient does have a primary doctor and says that his vascular surgeon is Dr. Mejia. ROS All systems reviewed and are negative except as per history of present illness. Medications Home Meds Reported Medications Insulin Lispro (Humalog Kwikpen U-100) 100 Unit/1 Ml Insuln.pen, 0 SQ SLIDING SCALE, EA 08/28/18 Insulin Glargine* (Lantus*) 100 Unit/Ml Soln, 0 SC QHS, #1 VIAL 45-52 UNITS 08/28/18 Metolazone* (Metolazone*) 5 Mg Tablet, 10 MG PO BID, TAB 08/28/18 Multivit/Ca Carb/B Cmplx/Fa* (Isabel-Brenda*) 1 Tab Tab, 1 TAB PO DAILY, TAB 08/28/18 Furosemide* (Furosemide*) 80 Mg Tablet, 160 MG PO BID, #60 TAB 08/28/18 Folic Acid* (Folic Acid*) 1 Mg Tablet, 1 MG PO DAILY, TAB 08/28/18 Apixaban* (Eliquis*) 5 Mg Tablet, 5 MG PO BID, TAB 08/28/18 Sevelamer Carbonate* (Renvela*) 800 Mg Tablet, 0.8 GM PO WITH MEALS, TAB 08/28/18 Discontinued Reported Medications Ezetimibe* (Zetia*) 10 Mg Tablet, 10 MG PO HS, TAB 11/05/17 Multivit/Ca Carb/B Cmplx/Fa* (Isabel-Brenda*) 1 Tab Tab, 1 TAB PO DAILY, TAB 11/05/17 Amlodipine Besylate* (Amlodipine Besylate*) 5 Mg Tablet, 5 MG PO DAILY, #30 TAB 11/05/17 Insulin Lispro (Humalog) 100 Unit/1 Ml Cartridge, 0-90 UNIT SQ AC MEALS, EA 11/05/17 Folic Acid* (Folic Acid*) 1 Mg Tablet, 1 MG PO DAILY, TAB 07/02/17 Icosapent Ethyl (VASCEPA) 1 Gm Capsule, 2 GM PO BID, CAP 07/02/17 Insulin Glargine* (Lantus*) 100 Unit/Ml Soln, 46 UNIT SC DAILY, #1 VIAL 07/02/17 Allergies Allergies: Coded Allergies: No Known Allergies (Verified Allergy, Mild, 08/28/18) PMhx/Soc History of Surgery: Yes (stomach surgery. AV Fistula ) Anesthesia Reaction: No Hx 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 Disorder: No Hx Respiratory Disorders: No Hx Cardiac Disorders: Yes (HTN) Hx Psychiatric Problems: No Hx Miscellaneous Medical Probl: No Hx Alcohol Use: No Hx Substance Use: No Hx Tobacco Use: No Smoking Status: Never smoker FmHx Family History: diabetes Physical Exam Vitals Vital Signs Date Temp Pulse Resp B/P (MAP) Pulse Ox O2 O2 Flow FiO2 Time Delivery Rate 08/28/18 97.8 65 21 152/63 95 Room Air 18:12 (92) 08/28/18 97.8 44 18 139/63 98 Room Air 17:08 (88) 08/28/18 Nasal 2 15:53 Cannula 08/28/18 97.8 72 18 172/83 98 13:40 (112) Physical Exam Const: Moderate distress Head: Atraumatic Eyes: Normal Conjunctiva ENT: Normal External Ears, Nose and Mouth. Neck: Full range of motion. No meningismus. Resp: Clear to auscultation bilaterally Cardio: Regular rate and rhythm, no murmurs Abd: Soft, non tender, non distended. Normal bowel sounds Skin: Erythema to the distal half of the left foot with coolness to touch, limited capillary refill, difficult to palpate pulses bilateral DP Back: No midline or flank tenderness Ext: No cyanosis, or edema Neur: Awake and alert Psych: Normal Mood and Affect Result Diagram: 08/28/18 1606 08/28/18 1605 Results 24 hrs Laboratory Tests Test 08/28/18 16:03 08/28/18 16:05 08/28/18 16:06 POC Venous Lactate 2.6 mmol/L Prothrombin Time 14.2 Sec Prothrombin Time Ratio 1.1 INR International Normalized Ratio 1.09 Activated Partial Thromboplast 34.4 Sec Time Sodium Level 136 mmol/L Potassium Level 6.0 mmol/L Chloride Level 89 mmol/L Carbon Dioxide Level 28 mmol/L Anion Gap 19 Blood Urea Nitrogen 76 mg/dl Creatinine 10.00 mg/dl Est Glomerular Filtrat Rate mL/min 5 mL/min Glucose Level 229 mg/dl Calcium Level 9.2 mg/dl Total Bilirubin 0.2 mg/dl Direct Bilirubin 0.00 mg/dl Indirect Bilirubin 0.2 mg/dl Aspartate Amino Transf (AST/SGOT) 13 IU/L Alanine < 6 IU/L Aminotransferase (ALT/SGPT) Alkaline Phosphatase 58 IU/L Troponin I < 0.012 ng/ml Total Protein 9.4 g/dl Albumin 4.7 g/dl Globulin 4.70 g/dl Albumin/Globulin Ratio 1.00 White Blood Count 8.9 10^3/ul Red Blood Count 4.15 10^6/ul Hemoglobin 12.2 g/dl Hematocrit 38.4 % Mean Corpuscular Volume 92.5 fl Mean Corpuscular Hemoglobin 29.4 pg Mean Corpuscular 31.8 g/dl Hemoglobin Concent Red Cell Distribution Width 14.4 % Platelet Count 190 10^3/UL Mean Platelet Volume 11.6 fl Immature Granulocytes % 0.300 % Neutrophils % 62.6 % Lymphocytes % 23.3 % Monocytes % 11.2 % Eosinophils % 2.0 % Basophils % 0.6 % Nucleated Red Blood Cells % 0.0 /100WBC Immature Granulocytes # 0.030 10^3/ul Neutrophils # 5.6 10^3/ul Lymphocytes # 2.1 10^3/ul Monocytes # 1.0 10^3/ul Eosinophils # 0.2 10^3/ul Basophils # 0.1 10^3/ul Nucleated Red Blood Cells # 0.0 10^3/ul Current Medications Medications Dose Sig/Becky Start Time Status Last (Trade) Ordered Route PRN Stop Time Admin Dose Reason Admin Cefepime HCl 50 ml @ ONCE STAT 08/28/18 DC 08/28/18 100 mls/hr IVPB 15:39 08/28/18 17:15 16:08 Vancomycin 250 ml @ ONCE ONCE 08/28/18 DC 08/28/18 HCl 125 mls/hr IVPB 16:00 08/28/18 17:15 18:05 Morphine 4 mg ONCE STAT 08/28/18 DC 08/28/18 Sulfate IV 15:39 4/4/19 17:15 (morphine) 15:42 Ondansetron 4 mg ONCE STAT 08/28/18 DC 08/28/18 HCl (Zofran IV 15:39 08/28/18 17:15 Inj) 15:42 Sodium 50 ml ONCE STAT 08/28/18 DC 08/28/18 Bicarbonate IV 17:23 08/28/18 18:11 (Na Bicarb 17:24 8.4% Syg) Calcium 1,000 mg ONCE STAT 08/28/18 DC 08/28/18 Chloride IV 17:23 08/28/18 17:42 (Ca Chloride 17:24 10% Syg) Ondansetron 4 mg ER BRIDGE 08/28/18 HCl (Zofran PRN IV 17:30 08/29/18 Inj) NAUSEA/VOMITI 17:29 NG 650 mg ER BRIDGE 08/28/18 Acetaminophen PRN PO 17:30 08/29/18 (Tylenol .MILD PAIN 17:29 Tab) 1-3 OR TEMP Furosemide 160 mg BID PO 08/28/18 (Lasix) 21:00 Metolazone 10 mg BID PO 08/28/18 (Zaroxolyn) 21:00 Multivit/Ca 1 tab DAILY PO 08/29/18 Carb/ B 09:00 Cmplx/FA/Pren at (Isabel-Brenda) Sevelamer 0.8 gm WITH MEALS 08/28/18 Carbonate PO 18:00 (Renvela) Insulin 15 units DAILY@199908/28/18 Glargine SC 20:00 (Lantus) Insulin NOVOLOG WITH MEALS 08/28/18 Aspart *MILD* BEDTIME SC 18:00 (Novolog ALGORITHM Insulin Pen) Insulin 5 unit WITH MEALS 08/28/18 Aspart SC 18:00 (Novolog Insulin Pen) 1 ea NOTE XX 08/28/18 Miscellaneous 18:30 Information Glucose 15 gm Q15M PRN 08/28/18 (Glutose) PO DECREASED 18:30 GLUCOSE Glucose 22.5 gm Q15M PRN 08/28/18 (Glutose) PO DECREASED 18:30 GLUCOSE Dextrose 25 ml Q15M PRN 08/28/18 (D50w IV DECREASED 18:30 Syringe) GLUCOSE Dextrose 50 ml Q15M PRN 08/28/18 (D50w IV DECREASED 18:30 Syringe) GLUCOSE Glucagon 1 mg Q15M PRN 08/28/18 (Glucagen) IM DECREASED 18:30 GLUCOSE Glucose 15 gm Q15M PRN 08/28/18 (Glutose) BUCCAL 18:30 DECREASED GLUCOSE DC ONCE ONCE 08/28/18 DC Miscellaneous previous XX 18:30 08/28/18 hepa... 18:31 Information (* Miscellaneous Pharmacy Order) Heparin 250 ml @ PER VASCULAR 08/28/18 Sodium 12.144 mls/ SURG IV 18:30 (Porcine) hr Vancomycin VANCOMYCIN PER 08/28/18 HCl (Vanco PER PHARMACY PROTOCOL XX 18:30 Iv Per Pharmacy) IV Flush 3 ml PER 08/28/18 (NS 3 ml) PROTOCOL IV 18:30 2 tab Q6H PRN 08/28/18 Acetaminophen PO .SEVERE 18:30 / PAIN 7-10 Hydrocodone Bitart ([place] (5/325)) 0.5 mg Q4H PRN 08/28/18 Hydromorphone IV .SEVERE 18:30 HCl PAIN 7-10 (Dilaudid) Morphine 2 mg ONCE STAT 08/28/18 DC Sulfate IV 18:26 08/28/18 (morphine) 18:29 Procedures/MDM Arterial ultrasound read by radiology is bilateral vascular insufficiency. EKG read by me: Rate/Rhythm: Regular rate and rhythm at a normal rate Intervals: Normal Impression: No evidence of ischemia or arrhythmia Chest x-ray read by radiology. Foot x-ray read by radiology shows no osteomyelitis. Sepsis Documentation: Patient's infectious symptoms have not stabilized and the patient is at risk of rapid decompensation. The patient will be admitted for careful hydration, antibiotic therapy, and infectious source control. SEVERE SEPSIS CRITERIA: Infectious source: Cellulitis of the left foot End organ damage indicated by: Lactate greater than 2 SEPSIS MANAGEMENT Time of recognition of sepsis: 1603. Time of recognition of severe sepsis: 1603. Time of recognition of septic shock: No septic shock at this time. 3 HOUR BUNDLE Blood cultures x 2 before broad-spectrum antibiotics: Yes 30 ml/kg NS bolus not given as the patient is a dialysis patient and I am concerned for fluid overload the patient does not have septic shock at this time. Initial lactate 2.6 Repeat lactate pending SEPTIC SHOCK ASSESSMENT: No lactic acid > 4.0 No persistent hypotension (SBP < 90 or 40 mmHg drop, MAP < 65) despite 30 mL/kg IV fluid bolus VOLUME REASSESSMENT FOR SEPTIC SHOCK: No septic shock at this time PERSISTENT HYPOTENSION TREATMENT: Comfort care no Central line not Required Vasopressor started not required I considered further perfusion assessment with CVP measurement, SCVO2, bedside ultrasound volume assessment, passive leg raise, trial of further fluid bolus. And proceeded with broad-spectrum antibiotics and admission. I spoke with Dr. Mancilla for admission to a telemetry bed as the patient also has hyperkalemia and was given bicarbonate and calcium. CRITICAL CARE Critical care time 35 minutes Emergent fluid management while maintaining close respiratory support. Provision of immediate and broad-spectrum antibiotic therapy. Simultaneous assessment for possible sources in order to direct targeted therapy. Consideration for invasive and chemical support to prevent cardiopulmonary collapse. Critical care time is independent of procedures performed. Departure Diagnosis: Primary Impression: Severe sepsis Additional Impressions: Cellulitis Site of cellulitis: extremity Site of cellulitis of extremity: lower extremity Laterality: left Qualified Codes: L03.116 - Cellulitis of left lower limb Vascular insufficiency Hyperkalemia Condition: Serious AMMON JOHNSTON MD Aug 28, 2018 18:55
[2018-08-28 20:00] VITALS: PULSE 61
[2018-08-28] MEDS ORDERED: INSULIN GLARGINE [LANTus] (100 UNITS/ML) SYG SC SCH (20:00)
[2018-08-28 20:09] VITALS: Ht 167.6 cm; Wt 100.6 kg
[2018-08-28] MEDS ORDERED: METOLAZONE 5 MG TAB PO SCH (21:00)
[2018-08-28] MEDS: FUROSEMIDE 40 MG TAB PO SCH (21:10)
[2018-08-28] MEDS: SEVELAMER CARBONATE 0.8 GM PKT PO SCH (21:10)
[2018-08-28] MEDS ORDERED: VANCOMYCIN 1 GM 250 ML IVPB SCH (21:30)
--- NOTE | 2018-08-28 22:25 | CONS ---
Assessment/Plan Assessment/Plan Assessment/Plan (Daily) 1. Acute hyperkalemia 2. acute Fluid overload 3. ESRD on HD MWF Schedule 4. LE feet cellultis vs obstructive PAD 5. h/O HTN ' 6. H/o HL Plan: s/p Treatment for hyperkalemia inED< no EKG changes BP stable paln for HD first in AM Need Podiatry consulte and vascular surgery consult Continue current Home medications Thanks for consultation I will continue to follow up Consultation Date/Type/Reason Admit Date/Time 08/28/18 Date of Consultation: Aug 28, 2018 Type of Consult NEPHROLOGY Reason for Consultation ESRD on HD , acute hyperkalemia, acute fluid overload Requesting Provider: PAUL LINDER MD Date/Time of Note DATE: 08/28/18 TIME: 22:25 Hx of Present Illness 67 yo male with DMII, ESRD, and PAD presents with painful bilateral feet, pt has pain distally with Extremely sensitive to touch and painful owrried about obstructive PAD- pt usually gets HD on MWF through [facility], last HD was on [place], Renal has been consulted for HD need S/p Treatment for hyperklemia in ED no chest pain, no SOB, no nausea, no vomiting, on abdominal pain Constitutional: no complaints Eyes: discharge ENT: no complaints Respiratory: no complaints Cardiovascular: no complaints Gastrointestinal: no complaints Genitourinary: no complaints Musculoskeletal: restricted range of motion, other (Feet pian wiht sensitive to touch ) Skin: no complaints Endocrine: no complaints Lymphatic: lymphadema Psychological: no complaints Immunologic: no complaints Past Medical History Medical History: high cholesterol, hypertension, other (ESRD oN HD ) Home Meds Reported Medications Insulin Lispro (Humalog Kwikpen U-100) 100 Unit/1 Ml Insuln.pen, 0 SQ SLIDING SCALE, EA 08/28/18 Insulin Glargine* (Lantus*) 100 Unit/Ml Soln, 0 SC QHS, #1 VIAL 45-52 UNITS 08/28/18 Metolazone* (Metolazone*) 5 Mg Tablet, 10 MG PO BID, TAB 08/28/18 Multivit/Ca Carb/B Cmplx/Fa* (Isabel-Brenda*) 1 Tab Tab, 1 TAB PO DAILY, TAB 08/28/18 Furosemide* (Furosemide*) 80 Mg Tablet, 160 MG PO BID, #60 TAB 08/28/18 Folic Acid* (Folic Acid*) 1 Mg Tablet, 1 MG PO DAILY, TAB 08/28/18 Apixaban* (Eliquis*) 5 Mg Tablet, 5 MG PO BID, TAB 08/28/18 Sevelamer Carbonate* (Renvela*) 800 Mg Tablet, 0.8 GM PO WITH MEALS, TAB 08/28/18 Discontinued Reported Medications Ezetimibe* (Zetia*) 10 Mg Tablet, 10 MG PO HS, TAB 11/05/17 Multivit/Ca Carb/B Cmplx/Fa* (Isabel-Brenda*) 1 Tab Tab, 1 TAB PO DAILY, TAB 11/05/17 Amlodipine Besylate* (Amlodipine Besylate*) 5 Mg Tablet, 5 MG PO DAILY, #30 TAB 11/05/17 Insulin Lispro (Humalog) 100 Unit/1 Ml Cartridge, 0-90 UNIT SQ AC MEALS, EA 11/05/17 Folic Acid* (Folic Acid*) 1 Mg Tablet, 1 MG PO DAILY, TAB 07/02/17 Icosapent Ethyl (VASCEPA) 1 Gm Capsule, 2 GM PO BID, CAP 07/02/17 Insulin Glargine* (Lantus*) 100 Unit/Ml Soln, 46 UNIT SC DAILY, #1 VIAL 07/02/17 Medications Current Medications Ondansetron HCl (Zofran Inj) 4 mg ER BRIDGE PRN IV NAUSEA/VOMITING; Start 08/28/18 at 17:30; Stop 08/29/18 at 17:29 Acetaminophen (Tylenol Tab) 650 mg ER BRIDGE PRN PO .MILD PAIN 1-3 OR TEMP; Start 08/28/18 at 17:30; Stop 08/29/18 at 17:29 Furosemide (Lasix) 160 mg BID PO Last administered on 08/28/18at 21:10; Admin Dose 160 MG; Start 08/28/18 at 21:00 Metolazone (Zaroxolyn) 10 mg BID PO ; Start 08/28/18 at 21:00 Multivit/Ca Carb/ B Cmplx/FA/Prenat (Isabel-Brenda) 1 tab DAILY PO ; Start 08/29/18 at 09:00 Sevelamer Carbonate (Renvela) 0.8 gm WITH MEALS PO Last administered on 08/28/18at 21:10; Admin Dose 0.8 GM; Start 08/28/18 at 18:00 Insulin Glargine (Lantus) 15 units DAILY@2000 SC ; Start 08/28/18 at 20:00 Insulin Aspart (Novolog Insulin Pen) NOVOLOG *MILD* ALGORITHM WITH MEALS BEDTIME SC ; Start 08/28/18 at 18:00 Insulin Aspart (Novolog Insulin Pen) 5 unit WITH MEALS SC ; Start 08/28/18 at 18:00 Miscellaneous Information 1 ea NOTE XX ; Start 08/28/18 at 18:30 Glucose (Glutose) 15 gm Q15M PRN PO DECREASED GLUCOSE; Start 08/28/18 at 18:30 Glucose (Glutose) 22.5 gm Q15M PRN PO DECREASED GLUCOSE; Start 08/28/18 at 18:30 Dextrose (D50w Syringe) 25 ml Q15M PRN IV DECREASED GLUCOSE; Start 08/28/18 at 18:30 Dextrose (D50w Syringe) 50 ml Q15M PRN IV DECREASED GLUCOSE; Start 08/28/18 at 18:30 Glucagon (Glucagen) 1 mg Q15M PRN IM DECREASED GLUCOSE; Start 08/28/18 at 18:30 Glucose (Glutose) 15 gm Q15M PRN BUCCAL DECREASED GLUCOSE; Start 08/28/18 at 18:30 Heparin Sodium (Porcine) 250 ml @ 10.06 mls/ hr PER VASCULAR SURG IV ; Start 08/28/18 at 18:30 Vancomycin HCl (Vanco Iv Per Pharmacy) VANCOMYCIN PER PHARMACY PER PROTOCOL XX ; Start 08/28/18 at 18:30 IV Flush (NS 3 ml) 3 ml PER PROTOCOL IV ; Start 08/28/18 at 18:30 Acetaminophen/ Hydrocodone Bitart ([place] (5/325)) 2 tab Q6H PRN PO .SEVERE PAIN 7-10; Start 08/28/18 at 18:30 Hydromorphone HCl (Dilaudid) 0.5 mg Q4H PRN IV .SEVERE PAIN 7-10; Start 08/28/18 at 18:30 Vancomycin HCl 250 ml @ 125 mls/hr ONCE IVPB ; Start 08/28/18 at 21:30; Stop 08/28/18 at 23:29 Allergies: Coded Allergies: No Known Allergies (Verified Allergy, Mild, 08/28/18) Past Surgical History Past Surgical Hx: other (AV fistula surgery ) Family History Significant Family History: no pertinent family hx Social History Alcohol Use: none Smoking Status: Never smoker Drug Use: none Exam/Review of Systems Exam Vitals Vital Signs Date Temp Pulse Resp B/P (MAP) Pulse Ox O2 O2 Flow FiO2 Time Delivery Rate 08/28/18 61 20:00 08/28/18 18 158/63 100 Room Air 19:34 (94) 08/28/18 97.8 18:12 08/28/18 2 15:53 Constitutional: alert Psych: no complaints Head: normocephalic Eyes: nl conjunctiva ENMT: nl external ears & nose Neck: supple, non-tender Respiratory: clear to auscultation, normal air movement Cardiovascular: regular rate and rhythm, nl pulses Gastrointestinal: soft, non-tender Musculoskeletal: range of motion, swelling, other (TTP to both feet distally ) 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: [employer] II-XII intact, nl mental status, nl speech, nl strength Lymph: nl lymph nodes Results Result Diagram: 08/28/18 1906 08/28/18 1605 Results 24hrs Laboratory Tests Test 08/28/18 16:03 08/28/18 16:05 08/28/18 16:06 08/28/18 19:06 POC Venous Lactate 2.6 *H Prothrombin Time 14.2 14.2 Prothrombin Time Ratio 1.1 1.1 INR International 1.09 1.09 Normalized Ratio Activated 34.4 31.4 Partial Thromboplast Time Sodium Level 136 Potassium Level 6.0 H Chloride Level 89 L Carbon Dioxide Level 28 Anion Gap 19 H Blood Urea Nitrogen 76 H Creatinine 10.00 H Est Glomerular Filtrat 5 L Rate mL/min Glucose Level 229 H Calcium Level 9.2 Total Bilirubin 0.2 Direct Bilirubin 0.00 Indirect Bilirubin 0.2 Aspartate Amino 13 L Transf (AST/SGOT) Alanine < 6 L Aminotransferase (ALT/SG PT) Alkaline Phosphatase 58 Troponin I < 0.012 Total Protein 9.4 H Albumin 4.7 Globulin 4.70 H Albumin/Globulin Ratio 1.00 White Blood Count 8.9 8.6 Red Blood Count 4.15 L 4.10 L Hemoglobin 12.2 L 12.1 L Hematocrit 38.4 L 38.1 L Mean Corpuscular Volume 92.5 92.9 Mean Corpuscular 29.4 29.5 Hemoglobin Mean Corpuscular 31.8 L 31.8 L Hemoglobin Concent Red Cell Distribution 14.4 14.3 Width Platelet Count 190 174 Mean Platelet Volume 11.6 H 11.7 H Immature Granulocytes % 0.300 0.700 H Neutrophils % 62.6 57.3 Lymphocytes % 23.3 26.2 Monocytes % 11.2 H 12.7 H Eosinophils % 2.0 2.3 Basophils % 0.6 0.8 Nucleated Red Blood 0.0 0.0 Cells % Immature Granulocytes # 0.030 0.060 H Neutrophils # 5.6 4.9 Lymphocytes # 2.1 2.3 Monocytes # 1.0 H 1.1 H Eosinophils # 0.2 0.2 Basophils # 0.1 0.1 Nucleated Red Blood 0.0 0.0 Cells # Uric Acid 6.8 C-Reactive Protein 5.6 H Test 08/28/18 19:07 08/28/18 19:19 Erythrocyte 110 H Sedimentation Rate Lactic Acid Level 2.6 *H Medications Medication Current Medications Ondansetron HCl (Zofran Inj) 4 mg ER BRIDGE PRN IV NAUSEA/VOMITING; Start 08/28/18 at 17:30; Stop 08/29/18 at 17:29 Acetaminophen (Tylenol Tab) 650 mg ER BRIDGE PRN PO .MILD PAIN 1-3 OR TEMP; Start 08/28/18 at 17:30; Stop 08/29/18 at 17:29 Furosemide (Lasix) 160 mg BID PO Last administered on 08/28/18at 21:10; Admin Dose 160 MG; Start 08/28/18 at 21:00 Metolazone (Zaroxolyn) 10 mg BID PO ; Start 08/28/18 at 21:00 Multivit/Ca Carb/ B Cmplx/FA/Prenat (Isabel-Brenda) 1 tab DAILY PO ; Start 08/29/18 at 09:00 Sevelamer Carbonate (Renvela) 0.8 gm WITH MEALS PO Last administered on 08/28/18at 21:10; Admin Dose 0.8 GM; Start 08/28/18 at 18:00 Insulin Glargine (Lantus) 15 units DAILY@2000 SC ; Start 08/28/18 at 20:00 Insulin Aspart (Novolog Insulin Pen) NOVOLOG *MILD* ALGORITHM WITH MEALS BEDTIME SC ; Start 08/28/18 at 18:00 Insulin Aspart (Novolog Insulin Pen) 5 unit WITH MEALS SC ; Start 08/28/18 at 18:00 Miscellaneous Information 1 ea NOTE XX ; Start 08/28/18 at 18:30 Glucose (Glutose) 15 gm Q15M PRN PO DECREASED GLUCOSE; Start 08/28/18 at 18:30 Glucose (Glutose) 22.5 gm Q15M PRN PO DECREASED GLUCOSE; Start 08/28/18 at 18:30 Dextrose (D50w Syringe) 25 ml Q15M PRN IV DECREASED GLUCOSE; Start 08/28/18 at 18:30 Dextrose (D50w Syringe) 50 ml Q15M PRN IV DECREASED GLUCOSE; Start 08/28/18 at 18:30 Glucagon (Glucagen) 1 mg Q15M PRN IM DECREASED GLUCOSE; Start 08/28/18 at 18:30 Glucose (Glutose) 15 gm Q15M PRN BUCCAL DECREASED GLUCOSE; Start 08/28/18 at 18:30 Heparin Sodium (Porcine) 250 ml @ 10.06 mls/ hr PER VASCULAR SURG IV ; Start 08/28/18 at 18:30 Vancomycin HCl (Vanco Iv Per Pharmacy) VANCOMYCIN PER PHARMACY PER PROTOCOL XX ; Start 08/28/18 at 18:30 IV Flush (NS 3 ml) 3 ml PER PROTOCOL IV ; Start 08/28/18 at 18:30 Acetaminophen/ Hydrocodone Bitart ([place] (5/325)) 2 tab Q6H PRN PO .SEVERE PAIN 7-10; Start 08/28/18 at 18:30 Hydromorphone HCl (Dilaudid) 0.5 mg Q4H PRN IV .SEVERE PAIN 7-10; Start 08/28/18 at 18:30 Vancomycin HCl 250 ml @ 125 mls/hr ONCE IVPB ; Start 08/28/18 at 21:30; Stop 08/28/18 at 23:29 RAQUEL MCDOWELL MD Aug 28, 2018 22:25
[2018-08-28] MEDS: HEPARIN 25000 UNITS/250 ML 250 ML IV SCH (22:26)
[2018-08-28] MEDS ORDERED: SODIUM CHLORIDE 0.9% 1L BAG IV PRN (22:30)
[2018-08-28] MEDS ORDERED: ALBUMIN HUMAN 25% 100 ML IV PRN (22:30)
[2018-08-28 23:17] VITALS: BP 109/51; PULSE 76; RESP 18
[2018-08-28] MEDS: METOLAZONE 10 MG TAB PO SCH (23:38)
[2018-08-29] VITALS (25 sets, daily range): BP systolic 88–129; BP diastolic 44–73; PULSE 59–116; RESP 18
[2018-08-29] MEDS ORDERED: SOD CHLORIDE 0.9% 500 ML IV ONE (02:30)
[2018-08-29] MEDS: HEPARIN 25000 UNITS/250 ML 250 ML IV SCH ×2 (07:02→21:33)
--- NOTE | 2018-08-29 08:09 | CONS ---
Assessment/Plan Assessment/Plan Problems: (1) Cellulitis of left foot (2) Fissure in skin of foot (3) Peripheral vascular disease (4) Type 2 diabetes mellitus with polyneuropathy (5) Morbid obesity (6) Chronic kidney disease with end stage renal failure on dialysis (7) Coronary artery disease Status: Chronic (8) Former smoker Assessment/Plan (Daily) I had a detailed discussion with the patient regarding his condition. Currently there is no recommended surgical procedure for his left foot infection. He needs IV antibiotics which was started in the emergency room. There may be a ischemic component to the left lower extremity as well which will be evaluated by Dr. Rod Mejia. There are no weightbearing restrictions at the moment. Patient will be monitored in-house. I also discussed my findings with Dr. Rod Mejia. Thank you again for involving me in the care of this patient. If you have any questions regarding this case, please feel free to contact me at pager: or reach me at mobile: [phone]. Consultation Date/Type/Reason Admit Date/Time 08/28/18 Date of Consultation: Aug 29, 2018 Type of Consult Foot and ankle surgery Reason for Consultation Evaluation of infection in the left foot Date/Time of Note DATE: 08/29/18 TIME: 08:00 Hx of Present Illness Thank you very much for the kind consultation. As you very well know this is a pleasant 67-year-old male patient with multiple medical problems including diab etes mellitus, end-stage renal disease on hemodialysis, who presented to the emergency room with left leg swelling redness and pain. patient apparently was also bleeding from the left foot. I was consulted for evaluation and treatment. Constitutional: no complaints Eyes: no complaints ENT: no complaints Respiratory: no complaints Gastrointestinal: no complaints Past Medical History As per history of present illness. Medical History: high cholesterol, hypertension, other (ESRD oN HD ) Home Meds Reported Medications Insulin Lispro (Humalog Kwikpen U-100) 100 Unit/1 Ml Insuln.pen, 0 SQ SLIDING SCALE, EA 08/28/18 Insulin Glargine* (Lantus*) 100 Unit/Ml Soln, 0 SC QHS, #1 VIAL 45-52 UNITS 08/28/18 Metolazone* (Metolazone*) 5 Mg Tablet, 10 MG PO BID, TAB 08/28/18 Multivit/Ca Carb/B Cmplx/Fa* (Isabel-Brenda*) 1 Tab Tab, 1 TAB PO DAILY, TAB 08/28/18 Furosemide* (Furosemide*) 80 Mg Tablet, 160 MG PO BID, #60 TAB 08/28/18 Folic Acid* (Folic Acid*) 1 Mg Tablet, 1 MG PO DAILY, TAB 08/28/18 Apixaban* (Eliquis*) 5 Mg Tablet, 5 MG PO BID, TAB 08/28/18 Sevelamer Carbonate* (Renvela*) 800 Mg Tablet, 0.8 GM PO WITH MEALS, TAB 08/28/18 Discontinued Reported Medications Ezetimibe* (Zetia*) 10 Mg Tablet, 10 MG PO HS, TAB 11/05/17 Multivit/Ca Carb/B Cmplx/Fa* (Isabel-Brenda*) 1 Tab Tab, 1 TAB PO DAILY, TAB 11/05/17 Amlodipine Besylate* (Amlodipine Besylate*) 5 Mg Tablet, 5 MG PO DAILY, #30 TAB 11/05/17 Insulin Lispro (Humalog) 100 Unit/1 Ml Cartridge, 0-90 UNIT SQ AC MEALS, EA 11/05/17 Folic Acid* (Folic Acid*) 1 Mg Tablet, 1 MG PO DAILY, TAB 07/02/17 Icosapent Ethyl (VASCEPA) 1 Gm Capsule, 2 GM PO BID, CAP 07/02/17 Insulin Glargine* (Lantus*) 100 Unit/Ml Soln, 46 UNIT SC DAILY, #1 VIAL 07/02/17 Medications Current Medications Furosemide (Lasix) 160 mg BID PO Last administered on 08/28/18at 21:10; Admin Dose 160 MG; Start 08/28/18 at 21:00 Multivit/Ca Carb/ B Cmplx/FA/Prenat (Isabel-Brenda) 1 tab DAILY PO ; Start 08/29/18 at 09:00 Sevelamer Carbonate (Renvela) 0.8 gm WITH MEALS PO Last administered on 08/28/18at 21:10; Admin Dose 0.8 GM; Start 08/28/18 at 18:00 Insulin Glargine (Lantus) 15 units DAILY@2000 SC Last administered on 08/28/18at 23:42; Admin Dose 15 UNITS; Start 08/28/18 at 20:00 Insulin Aspart (Novolog Insulin Pen) NOVOLOG *MILD* ALGORITHM WITH MEALS BEDTIME SC ; Start 08/28/18 at 18:00 Insulin Aspart (Novolog Insulin Pen) 5 unit WITH MEALS SC ; Start 08/28/18 at 18:00 Miscellaneous Information 1 ea NOTE XX ; Start 08/28/18 at 18:30 Glucose (Glutose) 15 gm Q15M PRN PO DECREASED GLUCOSE; Start 08/28/18 at 18:30 Glucose (Glutose) 22.5 gm Q15M PRN PO DECREASED GLUCOSE; Start 08/28/18 at 18:30 Dextrose (D50w Syringe) 25 ml Q15M PRN IV DECREASED GLUCOSE; Start 08/28/18 at 18:30 Dextrose (D50w Syringe) 50 ml Q15M PRN IV DECREASED GLUCOSE; Start 08/28/18 at 18:30 Glucagon (Glucagen) 1 mg Q15M PRN IM DECREASED GLUCOSE; Start 08/28/18 at 18:30 Glucose (Glutose) 15 gm Q15M PRN BUCCAL DECREASED GLUCOSE; Start 08/28/18 at 18:30 Heparin Sodium (Porcine) 250 ml @ 10.06 mls/ hr PER VASCULAR SURG IV Last administered on 08/29/18at 07:02; Admin Dose 12 MLS/HR; Start 08/28/18 at 18:30 Vancomycin HCl (Vanco Iv Per Pharmacy) VANCOMYCIN PER PHARMACY PER PROTOCOL XX ; Start 08/28/18 at 18:30 IV Flush (NS 3 ml) 3 ml PER PROTOCOL IV ; Start 08/28/18 at 18:30 Acetaminophen/ Hydrocodone Bitart ([place] (5/325)) 2 tab Q6H PRN PO .SEVERE PAIN 7-10; Start 08/28/18 at 18:30 Hydromorphone HCl (Dilaudid) 0.5 mg Q4H PRN IV .SEVERE PAIN 7-10; Start 08/28/18 at 18:30 Albumin Human 100 ml @ 100 mls/hr WITH DIALYSIS PRN IV SBP <90 DURING DIALYSIS; Start 08/28/18 at 22:30 Sodium Chloride (NS) -To prime the dialy... DIRECTED FOR HD PRN IV HD; Start 08/28/18 at 22:30 Metolazone (Zaroxolyn) 10 mg BID PO Last administered on 08/28/18at 23:38; Admin Dose 10 MG; Start 08/28/18 at 23:00 Miscellaneous Information (*Rx Drug Level Order Reminder*) VANCO RANDOM W/ AM LABS... 0500 ONCE XX ; Start 08/30/18 at 05:00; Stop 08/30/18 at 05:01 Allergies: Coded Allergies: No Known Allergies (Verified Allergy, Mild, 08/28/18) Past Surgical History As per history of present illness. Past Surgical Hx: other (AV fistula surgery ) Social History Alcohol Use: none Smoking Status: Never smoker Drug Use: none Exam/Review of Systems Exam Vitals Vital Signs Date Temp Pulse Resp B/P (MAP) Pulse Ox O2 O2 Flow FiO2 Time Delivery Rate 08/29/18 98.3 83 18 107/73 94 07:13 (84) 08/28/18 Room Air 19:34 08/28/18 2 15:53 Intake and Output 08/28/18 08/28/18 08/29/18 1515:00 23:00 07:00 IntakeIntake Total 1150 ml OutputOutput Total 0 ml BalanceBalance 1150 ml Exam Patient is morbidly obese laying supine in bed in no acute distress. Patient has left lower extremity erythema extending from the ankle to the toes. There is a heel fissure present which is tender to palpation. Patient has some dry bleeding noted between the third and fourth toes with no obvious open wound. There is no active bleeding noted. No pus present. Temperature gradient is decreased on the left lower extremity however the toes seem to be slightly cold er and there is ecchymosis noted across all toes on the left foot. There is no palpable fluctuance and no malodor present. Right foot also has ecchymosis noted on the toes with no open wound and no erythema. Multiple varicosities present bilateral lower extremity. Labs reviewed. X-ray of the left foot was reviewed which shows soft tissue swelling overlying the distal metatarsals with no lytic lesion and no gas in the tissue. Patient was started on vancomycin on 08/28/2018 at 21:30. Results Result Diagram: 08/29/18 0544 08/29/18 0543 Results 24hrs Laboratory Tests Test 08/28/18 16:03 08/28/18 16:05 08/28/18 16:06 08/28/18 19:06 POC Venous Lactate 2.6 *H Prothrombin Time 14.2 14.2 Prothrombin Time Ratio 1.1 1.1 INR International 1.09 1.09 Normalized Ratio Activated 34.4 31.4 Partial Thromboplast Time Sodium Level 136 Potassium Level 6.0 H Chloride Level 89 L Carbon Dioxide Level 28 Anion Gap 19 H Blood Urea Nitrogen 76 H Creatinine 10.00 H Est Glomerular Filtrat 5 L Rate mL/min Glucose Level 229 H Calcium Level 9.2 Total Bilirubin 0.2 Direct Bilirubin 0.00 Indirect Bilirubin 0.2 Aspartate Amino 13 L Transf (AST/SGOT) Alanine < 6 L Aminotransferase (ALT/SG PT) Alkaline Phosphatase 58 Troponin I < 0.012 Total Protein 9.4 H Albumin 4.7 Globulin 4.70 H Albumin/Globulin Ratio 1.00 White Blood Count 8.9 8.6 Red Blood Count 4.15 L 4.10 L Hemoglobin 12.2 L 12.1 L Hematocrit 38.4 L 38.1 L Mean Corpuscular Volume 92.5 92.9 Mean Corpuscular 29.4 29.5 Hemoglobin Mean Corpuscular 31.8 L 31.8 L Hemoglobin Concent Red Cell Distribution 14.4 14.3 Width Platelet Count 190 174 Mean Platelet Volume 11.6 H 11.7 H Immature Granulocytes % 0.300 0.700 H Neutrophils % 62.6 57.3 Lymphocytes % 23.3 26.2 Monocytes % 11.2 H 12.7 H Eosinophils % 2.0 2.3 Basophils % 0.6 0.8 Nucleated Red Blood 0.0 0.0 Cells % Immature Granulocytes # 0.030 0.060 H Neutrophils # 5.6 4.9 Lymphocytes # 2.1 2.3 Monocytes # 1.0 H 1.1 H Eosinophils # 0.2 0.2 Basophils # 0.1 0.1 Nucleated Red Blood 0.0 0.0 Cells # Uric Acid 6.8 C-Reactive Protein 5.6 H Test 08/28/18 19:07 08/28/18 19:19 08/28/18 23:12 08/29/18 01:17 Erythrocyte 110 H Sedimentation Rate Lactic Acid Level 2.6 *H 2.5 *H Bedside Glucose 172 Test 08/29/18 05:43 08/29/18 05:44 Sodium Level 137 Potassium Level 5.5 H Chloride Level 95 L Carbon Dioxide Level 27 Anion Gap 15 H Blood Urea Nitrogen 83 H Creatinine 10.37 H Est Glomerular Filtrat 5 L Rate mL/min Glucose Level 252 H Calcium Level 8.6 Total Bilirubin 0.1 L Direct Bilirubin 0.00 Indirect Bilirubin 0.1 Aspartate Amino 13 L Transf (AST/SGOT) Alanine < 6 L Aminotransferase (ALT/SG PT) Alkaline Phosphatase 52 Total Protein 7.3 # Albumin 3.8 Globulin 3.50 H Albumin/Globulin Ratio 1.08 White Blood Count 5.2 # Red Blood Count 3.48 L Hemoglobin 10.2 L Hematocrit 32.3 L Mean Corpuscular Volume 92.8 Mean Corpuscular 29.3 Hemoglobin Mean Corpuscular 31.6 L Hemoglobin Concent Red Cell Distribution 14.4 Width Platelet Count 171 Mean Platelet Volume 12.3 H Immature Granulocytes % 0.400 Neutrophils % 50.7 Lymphocytes % 29.6 Monocytes % 12.9 H Eosinophils % 5.2 Basophils % 1.2 Nucleated Red Blood 0.0 Cells % Immature Granulocytes # 0.020 Neutrophils # 2.7 Lymphocytes # 1.5 Monocytes # 0.7 Eosinophils # 0.3 Basophils # 0.1 Nucleated Red Blood 0.0 Cells # Activated 56.5 H Partial Thromboplast Time Hemoglobin A1c 7.8 H Medications Medication Current Medications Furosemide (Lasix) 160 mg BID PO Last administered on 08/28/18at 21:10; Admin Dose 160 MG; Start 08/28/18 at 21:00 Multivit/Ca Carb/ B Cmplx/FA/Prenat (Isabel-Brenda) 1 tab DAILY PO ; Start 08/29/18 at 09:00 Sevelamer Carbonate (Renvela) 0.8 gm WITH MEALS PO Last administered on 08/28/18at 21:10; Admin Dose 0.8 GM; Start 08/28/18 at 18:00 Insulin Glargine (Lantus) 15 units DAILY@2000 SC Last administered on 08/28/18at 23:42; Admin Dose 15 UNITS; Start 08/28/18 at 20:00 Insulin Aspart (Novolog Insulin Pen) NOVOLOG *MILD* ALGORITHM WITH MEALS BEDTIME SC ; Start 08/28/18 at 18:00 Insulin Aspart (Novolog Insulin Pen) 5 unit WITH MEALS SC ; Start 08/28/18 at 18:00 Miscellaneous Information 1 ea NOTE XX ; Start 08/28/18 at 18:30 Glucose (Glutose) 15 gm Q15M PRN PO DECREASED GLUCOSE; Start 08/28/18 at 18:30 Glucose (Glutose) 22.5 gm Q15M PRN PO DECREASED GLUCOSE; Start 08/28/18 at 18:30 Dextrose (D50w Syringe) 25 ml Q15M PRN IV DECREASED GLUCOSE; Start 08/28/18 at 18:30 Dextrose (D50w Syringe) 50 ml Q15M PRN IV DECREASED GLUCOSE; Start 08/28/18 at 18:30 Glucagon (Glucagen) 1 mg Q15M PRN IM DECREASED GLUCOSE; Start 08/28/18 at 18:30 Glucose (Glutose) 15 gm Q15M PRN BUCCAL DECREASED GLUCOSE; Start 08/28/18 at 18:30 Heparin Sodium (Porcine) 250 ml @ 10.06 mls/ hr PER VASCULAR SURG IV Last administered on 08/29/18at 07:02; Admin Dose 12 MLS/HR; Start 08/28/18 at 18:30 Vancomycin HCl (Vanco Iv Per Pharmacy) VANCOMYCIN PER PHARMACY PER PROTOCOL XX ; Start 08/28/18 at 18:30 IV Flush (NS 3 ml) 3 ml PER PROTOCOL IV ; Start 08/28/18 at 18:30 Acetaminophen/ Hydrocodone Bitart ([place] (5/325)) 2 tab Q6H PRN PO .SEVERE PAIN 7-10; Start 08/28/18 at 18:30 Hydromorphone HCl (Dilaudid) 0.5 mg Q4H PRN IV .SEVERE PAIN 7-10; Start 08/28/18 at 18:30 Albumin Human 100 ml @ 100 mls/hr WITH DIALYSIS PRN IV SBP <90 DURING DIALYSIS; Start 08/28/18 at 22:30 Sodium Chloride (NS) -To prime the dialy... DIRECTED FOR HD PRN IV HD; Start 08/28/18 at 22:30 Metolazone (Zaroxolyn) 10 mg BID PO Last administered on 08/28/18at 23:38; Admin Dose 10 MG; Start 08/28/18 at 23:00 Miscellaneous Information (*Rx Drug Level Order Reminder*) VANCO RANDOM W/ AM LABS... 0500 ONCE XX ; Start 08/30/18 at 05:00; Stop 08/30/18 at 05:01 ДМИТРИЙ MELÉNDEZ DPM Aug 29, 2018 08:09
[2018-08-29] MEDS: MULTIVIT/CA CARB/B CMPLX/FA TAB PO SCH (08:20)
[2018-08-29] MEDS: SEVELAMER CARBONATE 0.8 GM PKT PO SCH ×3 (08:20→18:29)
[2018-08-29] MEDS: METOLAZONE 10 MG TAB PO SCH ×3 (08:30→20:11)
[2018-08-29] MEDS: FUROSEMIDE 40 MG TAB PO SCH ×3 (08:30→20:10)
[2018-08-29] MEDS: HYDROCODONE/APAP (5/325) TAB PO PRN ×2 (08:36→20:12)
[2018-08-29] MEDS: INSULIN ASPART [NOVOLOG] 3 ML PEN SC SCH ×6 (09:01→21:00)
[2018-08-29] MEDS: CLOPIDOGREL 75 MG TAB PO SCH (09:06)
--- NOTE | 2018-08-29 09:06 | PN ---
Date/Time of Note Date/Time of Note DATE: 08/29/18 TIME: 09:04 Assessment/Plan Lines/Catheters IV Catheter Type (from [facility]): Peripheral IV Assessment/Plan Chief Complaint/Hosp Course -LLE edema and redness improving. -Continue with antibiotics -Will obtain CTA of the abd/pelvis with runoff for now until his fluid overload improves -Recommend using 17gauge needle for the fistula for now. He has cephalic arch stenosis and small caliber vein -Continue with Heparin gtt for now. History of Afib -Started plavix in addition to anticoagulation. Concern for possible embolic event Addendum: Evaluated patient at 8 PM -Patient's left lower extremity discomfort has been improving, erythema appears to be much improved than yesterday -Edema improved with bedrest and elevation of the left lower extremity -Discoloration of the first 3 toes appears to be more likely related to embolization as the patient's anticoagulation had been stopped by outside facility prior to an intervention -As the patient has history of intermittent claudication would recommend for him not to undergo any new endovascular interventions for now and to optimize his vascular health. Recommend improved exercise program, BP control, antiplatelet agent, sugar control, weight loss, anticoagulation to be continued -Still await CT angiography. Pending the results will likely restart the patient back on his Eliquis and follow him as an outpatient if no significant findings Exam/Review of Systems Vital Signs Vitals Vital Signs Date Temp Pulse Resp B/P (MAP) Pulse Ox O2 O2 Flow FiO2 Time Delivery Rate 08/29/18 97.8 62 18 129/51 96 19:34 (77) 08/29/18 Room Air 10:20 08/28/18 2 15:53 Intake and Output 08/28/18 08/28/18 08/29/18 1515:00 23:00 07:00 IntakeIntake Total 1150 ml OutputOutput Total 0 ml BalanceBalance 1150 ml Exam Free Text/Dictation GENERAL: Alert and oriented x3, speaks Albanian. HEENT: Normocephalic, atraumatic. Mucosa moist. NECK: Supple, no carotid bruit. PULMONARY: Coarse breath sounds bilaterally, some crackles at the bases. CARDIOVASCULAR: S1, S2 present, irregular. ABDOMEN: Soft, nontender, nondistended. Bowel sounds positive. Large truncal obesity. EXTREMITIES: Lower extremities: -Right lower extremity palpable femoral pulse, nonpalpable pedal pulse. Motor and sensory intact. Cap refill 3 to 4 seconds. Presence of varicose veins and large leg. -Left lower extremity palpable femoral pulse, nonpalpable pedal pulse. Motor and sensory intact. Cap refill 3 to 4 seconds. Infectious ulcer of the third toe improving. first, second and third toe bluish discoloration. Varicose veins and edema of the left lower extremity with presence of mild lipodermatosclerosis. Results Result Diagram: 08/29/18 0544 08/29/18 0543 VANIA PEREYRA MD Aug 29, 2018 09:06
--- NOTE | 2018-08-29 09:24 | CONS ---
DATE OF ADMISSION: 08/28/2018 DATE OF CONSULTATION: 08/29/2018 VASCULAR SURGERY CONSULTATION Dear Doctors: Mr. Arora is a 67-year-old male noncompliant diabetic with end-stage renal disease and coronary ar renate disease. He is known to our vascular surgery service with presentation of left lower extremity swelling and foot pain that has had over the past few days. The patient mentioned that he developed redness to the area, especially the third toe where he had developed a blister and the pain had gradu ally worsened where his brought him in to be evaluated secondary to his pain. Upon evaluation, it was identified the patient having significant erythema of the distal half of his left foot and hav ing a pain associated with that. Patient has undergone diagnostic imaging where his venous ultrasoun d was negative for any DVT. His arterial ultrasound did identify patient having atherosclerotic dise ase throughout bilateral lower extremities with PAUL of 0.8 on the right and on the left, 0.7. He townsend s appear to have findings of infrapopliteal disease based on the current findings. REVIEW OF SYSTEMS: A 14-point review performed and negative except what is mentioned in the HPI. PAST MEDICAL HISTORY: Entails diabetes, morbidly obese, BMI of 36, end-stage renal disease, coronary artery disease, history of atrial fibrillation on Eliquis, hypercholesterolemia and hypertension. PAST SURGICAL HISTORY: 1. Left arm AV fistula creation. Left arm fistulogram. 2. Perm-catheter placement. 3. Multiple lower extremity endovascular interventions at an outside facility. FAMILY HISTORY: Positive for hypertension. SOCIAL HISTORY: Denies current tobacco, alcohol or illicit drug use. PHYSICAL EXAMINATION: GENERAL: Alert and oriented x3, speaks [place] Citizen. HEENT: Normocephalic, atraumatic. Mucosa moist. NECK: Supple, no carotid bruit. PULMONARY: Coarse breath sounds bilaterally, some crackles at the bases. CARDIOVASCULAR: S1, S2 present, irregular. ABDOMEN: Soft, nontender, nondistended. Bowel sounds positive. Large truncal obesity. EXTREMITIES: Lower extremities: Right lower extremity palpable femoral pulse, nonpalpable pedal pul se. Motor and sensory intact. Cap refill 3 to 4 seconds. Presence of varicose veins and large leg. Left lower extremity palpable femoral pulse, nonpalpable pedal pulse. Motor and sensory intact. C ap refill 3 to 4 seconds. Infectious ulcer of the third toe with first, second and third toe bluish discoloration. Varicose veins and edema of the left lower extremity with presence of mild lipodermat osclerosis. ASSESSMENT AND PLAN: Bilateral lower extremity atherosclerosis with left lower extremity third toe u lcer and cellulitis: It seems the patient has developed third toe ulceration that may be contributed to a diabetic foot infection. Currently, the patient has antibiotics, would recommend for the patie nt to continue on that for now and treat him for the local wound infection. Further, the patient townsend s have some bluish discoloration of the first 3 toes. There is some concern the patient may have had an embolization, as the patient appears to have stopped his Eliquis and does not take aspirin or ant iplatelet agent. Patient has been told he is on Eliquis for irregular heart rhythm, possible atrial fibrillation and apparently patient was scheduled to undergo an endovascular intervention of his lowe r extremities by outside podiatry colleagues that have an angio sensor. I am unclear of the location as the patient and family were not able to fully describe this better to me. At the moment, the pat ient has been placed on heparin drip which we recommend for him to be continued. I also would recomm end for the patient to be started on antiplatelet agent secondary to the fact that he does have ather osclerotic disease and he will need antiplatelet agent in addition to his anticoagulation. We will plan to evaluate the patient overnight as antibiotics are on board and will consider obtainin g a CT angiography to better delineate his infrainguinal disease. 1. Bilateral lower extremity varicose veins and edema: The patient appears to also have a mixed dis ease (venous and arterial insufficiency). For now, we will plan to obtain eventual venous reflux carole dies as an outpatient. We will continue to monitor him for that. However, it does make his interven tion a bit more complex given that he has end-stage renal disease, diabetes and atherosclerotic disea se with his current management. We will have our podiatry colleagues evaluate the patient as he does have an ulcer of the third toe. The patient and family do understand that he may require a third to e amputation should the infection progress and not allow for the wound to heal. Optimize vascular status (BP meds, diet, nutrition, exercise, sugar control, antiplatelets). Thank you for allowing us to partake in the care of your patient. Please call with any questions. Discussed findings, plan and management with the patient and and they understand all that is inv olved. Dictated By: VANIA SANTIAGO/FREDY Conf#: [id number] DID#: [id number]
--- NOTE | 2018-08-29 09:48 | CONS ---
Assessment/Plan Assessment/Plan Assessment/Plan (Daily) 1. Acute hyperkalemia 2. acute Fluid overload 3. ESRD on HD MWF Schedule 4. LE feet cellultis vs obstructive PAD 5. h/O HTN ' 6. H/o HL Plan: s/p HD today 1.7 L removed, Plan for another HD tomorrow due to elevated BUN and Cr Plan for LE angiogram today by Vascular surgery will follow up , pt regular schedule is MWF Consultation Date/Type/Reason Admit Date/Time Aug 28, 2018 at 17:26 Initial Consult Date 08/29/18 Type of Consult NEPHROLOGY Requesting Provider: PAUL LINDER MD Date/Time of Note DATE: 08/29/18 TIME: 09:48 Exam/Review of Systems Exam Vitals Vital Signs Date Temp Pulse Resp B/P (MAP) Pulse Ox O2 O2 Flow FiO2 Time Delivery Rate 08/29/18 66 08:12 08/29/18 98.3 18 107/73 94 07:13 (84) 08/28/18 Room Air 19:34 08/28/18 2 15:53 Intake and Output 08/28/18 08/28/18 08/29/18 1515:00 23:00 07:00 IntakeIntake Total 1150 ml OutputOutput Total 0 ml BalanceBalance 1150 ml Exam Constitutional: alert Respiratory: clear to auscultation, normal air movement Cardiovascular: regular rate and rhythm, nl pulses Gastrointestinal: soft, non-tender Musculoskeletal: range of motion, swelling, other (TTP to both feet distally ) 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-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, nl mental status, nl speech, nl strength Lymph: nl lymph nodes Results Result Diagram: 08/29/18 0544 08/29/18 0543 Results 24hrs Laboratory Tests Test 08/28/18 16:03 08/28/18 16:05 08/28/18 16:06 08/28/18 19:06 POC Venous Lactate 2.6 *H Prothrombin Time 14.2 14.2 Prothrombin Time Ratio 1.1 1.1 INR International 1.09 1.09 Normalized Ratio Activated 34.4 31.4 Partial Thromboplast Time Sodium Level 136 Potassium Level 6.0 H Chloride Level 89 L Carbon Dioxide Level 28 Anion Gap 19 H Blood Urea Nitrogen 76 H Creatinine 10.00 H Est Glomerular Filtrat 5 L Rate mL/min Glucose Level 229 H Calcium Level 9.2 Total Bilirubin 0.2 Direct Bilirubin 0.00 Indirect Bilirubin 0.2 Aspartate Amino 13 L Transf (AST/SGOT) Alanine < 6 L Aminotransferase (ALT/SG PT) Alkaline Phosphatase 58 Troponin I < 0.012 Total Protein 9.4 H Albumin 4.7 Globulin 4.70 H Albumin/Globulin Ratio 1.00 White Blood Count 8.9 8.6 Red Blood Count 4.15 L 4.10 L Hemoglobin 12.2 L 12.1 L Hematocrit 38.4 L 38.1 L Mean Corpuscular Volume 92.5 92.9 Mean Corpuscular 29.4 29.5 Hemoglobin Mean Corpuscular 31.8 L 31.8 L Hemoglobin Concent Red Cell Distribution 14.4 14.3 Width Platelet Count 190 174 Mean Platelet Volume 11.6 H 11.7 H Immature Granulocytes % 0.300 0.700 H Neutrophils % 62.6 57.3 Lymphocytes % 23.3 26.2 Monocytes % 11.2 H 12.7 H Eosinophils % 2.0 2.3 Basophils % 0.6 0.8 Nucleated Red Blood 0.0 0.0 Cells % Immature Granulocytes # 0.030 0.060 H Neutrophils # 5.6 4.9 Lymphocytes # 2.1 2.3 Monocytes # 1.0 H 1.1 H Eosinophils # 0.2 0.2 Basophils # 0.1 0.1 Nucleated Red Blood 0.0 0.0 Cells # Uric Acid 6.8 C-Reactive Protein 5.6 H Test 08/28/18 19:07 08/28/18 19:19 08/28/18 23:12 08/29/18 01:17 Erythrocyte 110 H Sedimentation Rate Lactic Acid Level 2.6 *H 2.5 *H Bedside Glucose 172 Test 08/29/18 05:43 08/29/18 05:44 08/29/18 07:32 08/29/18 08:18 Sodium Level 137 Potassium Level 5.5 H Chloride Level 95 L Carbon Dioxide Level 27 Anion Gap 15 H Blood Urea Nitrogen 83 H Creatinine 10.37 H Est Glomerular Filtrat 5 L Rate mL/min Glucose Level 252 H Calcium Level 8.6 Total Bilirubin 0.1 L Direct Bilirubin 0.00 Indirect Bilirubin 0.1 Aspartate Amino 13 L Transf (AST/SGOT) Alanine < 6 L Aminotransferase (ALT/SG PT) Alkaline Phosphatase 52 Total Protein 7.3 # Albumin 3.8 Globulin 3.50 H Albumin/Globulin Ratio 1.08 White Blood Count 5.2 # Red Blood Count 3.48 L Hemoglobin 10.2 L Hematocrit 32.3 L Mean Corpuscular Volume 92.8 Mean Corpuscular 29.3 Hemoglobin Mean Corpuscular 31.6 L Hemoglobin Concent Red Cell Distribution 14.4 Width Platelet Count 171 Mean Platelet Volume 12.3 H Immature Granulocytes % 0.400 Neutrophils % 50.7 Lymphocytes % 29.6 Monocytes % 12.9 H Eosinophils % 5.2 Basophils % 1.2 Nucleated Red Blood 0.0 Cells % Immature Granulocytes # 0.020 Neutrophils # 2.7 Lymphocytes # 1.5 Monocytes # 0.7 Eosinophils # 0.3 Basophils # 0.1 Nucleated Red Blood 0.0 Cells # Activated 56.5 H Partial Thromboplast Time Hemoglobin A1c 7.8 H Lactic Acid Level 1.9 Bedside Glucose 226 H Medications Medication Current Medications Furosemide (Lasix) 160 mg BID PO Last administered on 08/28/18at 21:10; Admin Dose 160 MG; Start 08/28/18 at 21:00 Multivit/Ca Carb/ B Cmplx/FA/Prenat (Isabel-Brenda) 1 tab DAILY PO Last administered on 08/29/18at 08:20; Admin Dose 1 TAB; Start 08/29/18 at 09:00 Sevelamer Carbonate (Renvela) 0.8 gm WITH MEALS PO Last administered on 08/29/18at 08:20; Admin Dose 0.8 GM; Start 08/28/18 at 18:00 Insulin Aspart (Novolog Insulin Pen) NOVOLOG *MILD* ALGORITHM WITH MEALS BEDTIME SC Last administered on 08/29/18at 09:01; Admin Dose 3 UNIT; Start 08/28/18 at 18:00 Miscellaneous Information 1 ea NOTE XX ; Start 08/28/18 at 18:30 Glucose (Glutose) 15 gm Q15M PRN PO DECREASED GLUCOSE; Start 08/28/18 at 18:30 Glucose (Glutose) 22.5 gm Q15M PRN PO DECREASED GLUCOSE; Start 08/28/18 at 18:30 Dextrose (D50w Syringe) 25 ml Q15M PRN IV DECREASED GLUCOSE; Start 08/28/18 at 1 8:30 Dextrose (D50w Syringe) 50 ml Q15M PRN IV DECREASED GLUCOSE; Start 08/28/18 at 18:30 Glucagon (Glucagen) 1 mg Q15M PRN IM DECREASED GLUCOSE; Start 08/28/18 at 18:30 Glucose (Glutose) 15 gm Q15M PRN BUCCAL DECREASED GLUCOSE; Start 08/28/18 at 18:30 Heparin Sodium (Porcine) 250 ml @ 10.06 mls/ hr PER VASCULAR SURG IV Last administered on 08/29/18at 07:02; Admin Dose 12 MLS/HR; Start 08/28/18 at 18:30 Vancomycin HCl (Vanco Iv Per Pharmacy) VANCOMYCIN PER PHARMACY PER PROTOCOL XX ; Start 08/28/18 at 18:30 IV Flush (NS 3 ml) 3 ml PER PROTOCOL IV ; Start 08/28/18 at 18:30 Acetaminophen/ Hydrocodone Bitart (Hutchinson (5/325)) 2 tab Q6H PRN PO .SEVERE PAIN 7-10 Last administered on 08/29/18at 08:36; Admin Dose 2 TAB; Start 08/28/18 at 18:30 Hydromorphone HCl (Dilaudid) 0.5 mg Q4H PRN IV .SEVERE PAIN 7-10; Start 08/28/18 at 18:30 Albumin Human 100 ml @ 100 mls/hr WITH DIALYSIS PRN IV SBP <90 DURING DIALYSIS; Start 08/28/18 at 22:30 Sodium Chloride (NS) -To prime the dialy... DIRECTED FOR HD PRN IV HD; Start 08/28/18 at 22:30 Metolazone (Zaroxolyn) 10 mg BID PO Last administered on 08/28/18at 23:38; Admin Dose 10 MG; Start 08/28/18 at 23:00 Miscellaneous Information (*Rx Drug Level Order Reminder*) VANCO RANDOM W/ AM LABS... 0500 ONCE XX ; Start 08/30/18 at 05:00; Stop 08/30/18 at 05:01 Clopidogrel Bisulfate (plaVIX) 75 mg DAILY PO Last administered on 08/29/18at 09:06; Admin Dose 75 MG; Start 08/29/18 at 09:00 Insulin Aspart (Novolog Insulin Pen) 8 unit WITH MEALS SC ; Start 08/29/18 at 11:50 Insulin Glargine (Lantus) 20 units DAILY@2000 SC ; Start 08/29/18 at 20:00 RAQUEL MCDOWELL MD Aug 29, 2018 09:48
--- NOTE | 2018-08-29 12:19 | PN ---
Date/Time of Note Date/Time of Note DATE: 08/29/18 TIME: 12:17 Assessment/Plan VTE Prophylaxis Risk score (from Nsg)>0 risk: 3 SCD applied (from Nsg): Yes Pharmacological prophylaxis: heparin Lines/Catheters IV Catheter Type (from Nrsg): Peripheral IV Assessment/Plan Hospital Course More comfortable appearing No distress Aox3 RRR Breathing comfortably Soft nt nd Ext: L foot with less erythema than prevoiusly, now localized to 2nd and 3rd toe. Warm but no rubor. No drainage. R foot now without erythema 67 yo male with PAD, DMII, and ESRD who presents with b/l foot pain - I suspect this is from vascular insufficiency, perhpas embolic event. Continue heparin drip and will transition back to Eliquis likely tomorrow - Given improvement with abx will continue for possible cellulitis - Pain control - Dr Cifuentes from podiatry and Dr Barker from general surgery have been consulted DMII: - basal/bolus insulin ESRD: - HD per Dr Tobar Hyperkalemia - Treated in ED PAD: - Aspirin and statin Result Diagram: 08/29/18 0544 08/29/18 0543 Results 24hrs Laboratory Tests Test 08/28/18 16:03 08/28/18 16:05 08/28/18 16:06 08/28/18 19:06 POC Venous Lactate 2.6 *H Prothrombin Time 14.2 14.2 Prothrombin Time Ratio 1.1 1.1 INR International 1.09 1.09 Normalized Ratio Activated 34.4 31.4 Partial Thromboplast Time Sodium Level 136 Potassium Level 6.0 H Chloride Level 89 L Carbon Dioxide Level 28 Anion Gap 19 H Blood Urea Nitrogen 76 H Creatinine 10.00 H Est Glomerular Filtrat 5 L Rate mL/min Glucose Level 229 H Calcium Level 9.2 Total Bilirubin 0.2 Direct Bilirubin 0.00 Indirect Bilirubin 0.2 Aspartate Amino 13 L Transf (AST/SGOT) Alanine < 6 L Aminotransferase (ALT/SG PT) Alkaline Phosphatase 58 Troponin I < 0.012 Total Protein 9.4 H Albumin 4.7 Globulin 4.70 H Albumin/Globulin Ratio 1.00 White Blood Count 8.9 8.6 Red Blood Count 4.15 L 4.10 L Hemoglobin 12.2 L 12.1 L Hematocrit 38.4 L 38.1 L Mean Corpuscular Volume 92.5 92.9 Mean Corpuscular 29.4 29.5 Hemoglobin Mean Corpuscular 31.8 L 31.8 L Hemoglobin Concent Red Cell Distribution 14.4 14.3 Width Platelet Count 190 174 Mean Platelet Volume 11.6 H 11.7 H Immature Granulocytes % 0.300 0.700 H Neutrophils % 62.6 57.3 Lymphocytes % 23.3 26.2 Monocytes % 11.2 H 12.7 H Eosinophils % 2.0 2.3 Basophils % 0.6 0.8 Nucleated Red Blood 0.0 0.0 Cells % Immature Granulocytes # 0.030 0.060 H Neutrophils # 5.6 4.9 Lymphocytes # 2.1 2.3 Monocytes # 1.0 H 1.1 H Eosinophils # 0.2 0.2 Basophils # 0.1 0.1 Nucleated Red Blood 0.0 0.0 Cells # Uric Acid 6.8 C-Reactive Protein 5.6 H Test 08/28/18 19:07 08/28/18 19:19 08/28/18 23:12 08/29/18 01:17 Erythrocyte 110 H Sedimentation Rate Lactic Acid Level 2.6 *H 2.5 *H Bedside Glucose 172 Test 08/29/18 05:43 08/29/18 05:44 08/29/18 07:32 08/29/18 08:18 Sodium Level 137 Potassium Level 5.5 H Chloride Level 95 L Carbon Dioxide Level 27 Anion Gap 15 H Blood Urea Nitrogen 83 H Creatinine 10.37 H Est Glomerular Filtrat 5 L Rate mL/min Glucose Level 252 H Calcium Level 8.6 Total Bilirubin 0.1 L Direct Bilirubin 0.00 Indirect Bilirubin 0.1 Aspartate Amino 13 L Transf (AST/SGOT) Alanine < 6 L Aminotransferase (ALT/SG PT) Alkaline Phosphatase 52 Total Protein 7.3 # Albumin 3.8 Globulin 3.50 H Albumin/Globulin Ratio 1.08 Hepatitis B Surface NEGATIVE Antigen White Blood Count 5.2 # Red Blood Count 3.48 L Hemoglobin 10.2 L Hematocrit 32.3 L Mean Corpuscular Volume 92.8 Mean Corpuscular 29.3 Hemoglobin Mean Corpuscular 31.6 L Hemoglobin Concent Red Cell Distribution 14.4 Width Platelet Count 171 Mean Platelet Volume 12.3 H Immature Granulocytes % 0.400 Neutrophils % 50.7 Lymphocytes % 29.6 Monocytes % 12.9 H Eosinophils % 5.2 Basophils % 1.2 Nucleated Red Blood 0.0 Cells % Immature Granulocytes # 0.020 Neutrophils # 2.7 Lymphocytes # 1.5 Monocytes # 0.7 Eosinophils # 0.3 Basophils # 0.1 Nucleated Red Blood 0.0 Cells # Activated 56.5 H Partial Thromboplast Time Hemoglobin A1c 7.8 H Lactic Acid Level 1.9 Bedside Glucose 226 H Subjective 24 Hr Interval Summary Free Text/Dictation Feet are improved Less pain Exam/Review of Systems Exam Vitals Vital Signs Date Temp Pulse Resp B/P (MAP) Pulse Ox O2 O2 Flow FiO2 Time Delivery Rate 08/29/18 71 12:14 08/29/18 98.5 18 96/46 (63) 97 11:59 08/29/18 Room Air 10:20 08/28/18 2 15:53 Intake and Output 08/28/18 08/28/18 08/29/18 1414:59 22:59 06:59 IntakeIntake Total 1150 ml OutputOutput Total 0 ml BalanceBalance 1150 ml Results Results 24hrs Laboratory Tests Test 08/28/18 16:03 08/28/18 16:05 08/28/18 16:06 08/28/18 19:06 POC Venous Lactate 2.6 *H Prothrombin Time 14.2 14.2 Prothrombin Time Ratio 1.1 1.1 INR International 1.09 1.09 Normalized Ratio Activated 34.4 31.4 Partial Thromboplast Time Sodium Level 136 Potassium Level 6.0 H Chloride Level 89 L Carbon Dioxide Level 28 Anion Gap 19 H Blood Urea Nitrogen 76 H Creatinine 10.00 H Est Glomerular Filtrat 5 L Rate mL/min Glucose Level 229 H Calcium Level 9.2 Total Bilirubin 0.2 Direct Bilirubin 0.00 Indirect Bilirubin 0.2 Aspartate Amino 13 L Transf (AST/SGOT) Alanine < 6 L Aminotransferase (ALT/SG PT) Alkaline Phosphatase 58 Troponin I < 0.012 Total Protein 9.4 H Albumin 4.7 Globulin 4.70 H Albumin/Globulin Ratio 1.00 White Blood Count 8.9 8.6 Red Blood Count 4.15 L 4.10 L Hemoglobin 12.2 L 12.1 L Hematocrit 38.4 L 38.1 L Mean Corpuscular Volume 92.5 92.9 Mean Corpuscular 29.4 29.5 Hemoglobin Mean Corpuscular 31.8 L 31.8 L Hemoglobin Concent Red Cell Distribution 14.4 14.3 Width Platelet Count 190 174 Mean Platelet Volume 11.6 H 11.7 H Immature Granulocytes % 0.300 0.700 H Neutrophils % 62.6 57.3 Lymphocytes % 23.3 26.2 Monocytes % 11.2 H 12.7 H Eosinophils % 2.0 2.3 Basophils % 0.6 0.8 Nucleated Red Blood 0.0 0.0 Cells % Immature Granulocytes # 0.030 0.060 H Neutrophils # 5.6 4.9 Lymphocytes # 2.1 2.3 Monocytes # 1.0 H 1.1 H Eosinophils # 0.2 0.2 Basophils # 0.1 0.1 Nucleated Red Blood 0.0 0.0 Cells # Uric Acid 6.8 C-Reactive Protein 5.6 H Test 08/28/18 19:07 08/28/18 19:19 08/28/18 23:12 08/29/18 01:17 Erythrocyte 110 H Sedimentation Rate Lactic Acid Level 2.6 *H 2.5 *H Bedside Glucose 172 Test 08/29/18 05:43 08/29/18 05:44 08/29/18 07:32 08/29/18 08:18 Sodium Level 137 Potassium Level 5.5 H Chloride Level 95 L Carbon Dioxide Level 27 Anion Gap 15 H Blood Urea Nitrogen 83 H Creatinine 10.37 H Est Glomerular Filtrat 5 L Rate mL/min Glucose Level 252 H Calcium Level 8.6 Total Bilirubin 0.1 L Direct Bilirubin 0.00 Indirect Bilirubin 0.1 Aspartate Amino 13 L Transf (AST/SGOT) Alanine < 6 L Aminotransferase (ALT/SG PT) Alkaline Phosphatase 52 Total Protein 7.3 # Albumin 3.8 Globulin 3.50 H Albumin/Globulin Ratio 1.08 Hepatitis B Surface NEGATIVE Antigen White Blood Count 5.2 # Red Blood Count 3.48 L Hemoglobin 10.2 L Hematocrit 32.3 L Mean Corpuscular Volume 92.8 Mean Corpuscular 29.3 Hemoglobin Mean Corpuscular 31.6 L Hemoglobin Concent Red Cell Distribution 14.4 Width Platelet Count 171 Mean Platelet Volume 12.3 H Immature Granulocytes % 0.400 Neutrophils % 50.7 Lymphocytes % 29.6 Monocytes % 12.9 H Eosinophils % 5.2 Basophils % 1.2 Nucleated Red Blood 0.0 Cells % Immature Granulocytes # 0.020 Neutrophils # 2.7 Lymphocytes # 1.5 Monocytes # 0.7 Eosinophils # 0.3 Basophils # 0.1 Nucleated Red Blood 0.0 Cells # Activated 56.5 H Partial Thromboplast Time Hemoglobin A1c 7.8 H Lactic Acid Level 1.9 Bedside Glucose 226 H Medications Medication Current Medications Furosemide (Lasix) 160 mg BID PO Last administered on 08/28/18at 21:10; Admin Dose 160 MG; Start 08/28/18 at 21:00 Multivit/Ca Carb/ B Cmplx/FA/Prenat (Isabel-Brenda) 1 tab DAILY PO Last administered on 08/29/18at 08:20; Admin Dose 1 TAB; Start 08/29/18 at 09:00 Sevelamer Carbonate (Renvela) 0.8 gm WITH MEALS PO Last administered on 08/29/18 08:20; Admin Dose 0.8 GM; Start 08/28/18 at 18:00 Insulin Aspart (Novolog Insulin Pen) NOVOLOG *MILD* ALGORITHM WITH MEALS BEDTIME SC Last administered on 08/29/18 09:01; Admin Dose 3 UNIT; Start 08/28/18 at 18:00 Miscellaneous Information 1 ea NOTE XX ; Start 08/28/18 at 18:30 Glucose (Glutose) 15 gm Q15M PRN PO DECREASED GLUCOSE; Start 08/28/18 at 18:30 Glucose (Glutose) 22.5 gm Q15M PRN PO DECREASED GLUCOSE; Start 08/28/18 at 18:30 Dextrose (D50w Syringe) 25 ml Q15M PRN IV DECREASED GLUCOSE; Start 08/28/18 at 18:30 Dextrose (D50w Syringe) 50 ml Q15M PRN IV DECREASED GLUCOSE; Start 08/28/18 at 18:30 Glucagon (Glucagen) 1 mg Q15M PRN IM DECREASED GLUCOSE; Start 08/28/18 at 18:30 Glucose (Glutose) 15 gm Q15M PRN BUCCAL DECREASED GLUCOSE; Start 08/28/18 at 18:30 Heparin Sodium (Porcine) 250 ml @ 10.06 mls/ hr PER VASCULAR SURG IV Last administered on 08/29/18at 07:02; Admin Dose 12 MLS/HR; Start 08/28/18 at 18:30 Vancomycin HCl (Vanco Iv Per Pharmacy) VANCOMYCIN PER PHARMACY PER PROTOCOL XX ; Start 08/28/18 at 18:30 IV Flush (NS 3 ml) 3 ml PER PROTOCOL IV ; Start 08/28/18 at 18:30 Acetaminophen/ Hydrocodone Bitart ([place] (5/325)) 2 tab Q6H PRN PO .SEVERE PAIN 7-10 Last administered on 08/29/18at 08:36; Admin Dose 2 TAB; Start 08/28/18 at 18:30 Hydromorphone HCl (Dilaudid) 0.5 mg Q4H PRN IV .SEVERE PAIN 7-10; Start 08/28/18 at 18:30 Albumin Human 100 ml @ 100 mls/hr WITH DIALYSIS PRN IV SBP <90 DURING DIALYSIS Last administered on 08/29/18at 10:50; Admin Dose 100 MLS/HR; Start 08/28/18 at 22:30 Sodium Chloride (NS) -To prime the dialy... DIRECTED FOR HD PRN IV HD; Start 08/28/18 at 22:30 Metolazone (Zaroxolyn) 10 mg BID PO Last administered on 08/28/18at 23:38; Admin Dose 10 MG; Start 08/28/18 at 23:00 Miscellaneous Information (*Rx Drug Level Order Reminder*) VANCO RANDOM W/ AM LABS... 0500 ONCE XX ; Start 08/30/18 at 05:00; Stop 08/30/18 at 05:01 Clopidogrel Bisulfate (plaVIX) 75 mg DAILY PO Last administered on 08/29/18at 09:06; Admin Dose 75 MG; Start 08/29/18 at 09:00 Insulin Aspart (Novolog Insulin Pen) 8 unit WITH MEALS SC ; Start 08/29/18 at 11:50 Insulin Glargine (Lantus) 20 units DAILY@2000 SC ; Start 08/29/18 at 20:00 PAUL LINDER MD Aug 29, 2018 12:19
[2018-08-29] MEDS ORDERED: EZET10TA31 PO (14:29)
--- NOTE | 2018-08-29 14:39 | CONS ---
Assessment/Plan Assessment/Plan Hospital Course (Demo Recall) Right 2nd/3rd toe lesion: In my opinion with recent left leg intervention and no antiplatelets and stoppage of Eliquis, likely vascular occlusion and embolization and less likely cellulitis. Currently on heparin yovani Hicks: Kaylee 1. Not on BB. No pauses or high grade block. Chronic per pt CAD: prior PCI. 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 Eventually transition back to Eliquis -agree with plavix -start lipitor 40mg -no BB -lasix/metolazone -HD per nephrology Consultation Date/Type/Reason Admit Date/Time Aug 28, 2018 at 17:26 Date of Consultation: Aug 29, 2018 Type of Consult Cardiology Reason for Consultation bradycardia, possible embolic event Requesting Provider: VANIA PEREYRA MD Date/Time of Note DATE: 08/29/18 TIME: 14:26 Hx of Present Illness 67 yo M with a h/o CAD s/p PCI years ago with normal cath per pt < 2 months prior, PAD s/p recent left leg intervention as outpt 20 days prior, h/o DVT previously on coumadin and now Eliquis, uncontrolled DM, ESRD on HD, HTN, who presented with pain and redness of his left 2nd and third toe. He is being treated for possible cellulitis vs embolic vascular occlusion. Pt and tell me that he had a left leg intervention via groin and pedal access 20 days ago. His Eliquis was stopped for that, then restarted, then stopped for the upcoming right leg intervention. The pain and color change occurred 2 days after stopping Eliquis. He is not on antiplatelets. No chest pain or SOB. No syncope. He notes having chroinic bradycardia with HD. No h/o afib. per HPI Past Medical History per hPI Home Meds Reported Medications Insulin Lispro (Humalog Kwikpen U-100) 100 Unit/1 Ml Insuln.pen, 0 SQ SLIDING SCALE, EA 08/28/18 Insulin Glargine* (Lantus*) 100 Unit/Ml Soln, 0 SC QHS, #1 VIAL 45-52 UNITS 08/28/18 Metolazone* (Metolazone*) 5 Mg Tablet, 10 MG PO BID, TAB 08/28/18 Multivit/Ca Carb/B Cmplx/Fa* (Isabel-Brenda*) 1 Tab Tab, 1 TAB PO DAILY, TAB 08/28/18 Furosemide* (Furosemide*) 80 Mg Tablet, 160 MG PO BID, #60 TAB 08/28/18 Folic Acid* (Folic Acid*) 1 Mg Tablet, 1 MG PO DAILY, TAB 08/28/18 Apixaban* (Eliquis*) 5 Mg Tablet, 5 MG PO BID, TAB 08/28/18 Sevelamer Carbonate* (Renvela*) 800 Mg Tablet, 0.8 GM PO WITH MEALS, TAB 08/28/18 Discontinued Reported Medications Ezetimibe* (Zetia*) 10 Mg Tablet, 10 MG PO HS, TAB 11/05/17 Multivit/Ca Carb/B Cmplx/Fa* (Isabel-Brenda*) 1 Tab Tab, 1 TAB PO DAILY, TAB 11/05/17 Amlodipine Besylate* (Amlodipine Besylate*) 5 Mg Tablet, 5 MG PO DAILY, #30 TAB 11/05/17 Insulin Lispro (Humalog) 100 Unit/1 Ml Cartridge, 0-90 UNIT SQ AC MEALS, EA 11/05/17 Folic Acid* (Folic Acid*) 1 Mg Tablet, 1 MG PO DAILY, TAB 07/02/17 Icosapent Ethyl (VASCEPA) 1 Gm Capsule, 2 GM PO BID, CAP 07/02/17 Insulin Glargine* (Lantus*) 100 Unit/Ml Soln, 46 UNIT SC DAILY, #1 VIAL 07/02/17 Medications Current Medications Furosemide (Lasix) 160 mg BID PO Last administered on 08/28/18at 21:10; Admin Dose 160 MG; Start 08/28/18 at 21:00 Multivit/Ca Carb/ B Cmplx/FA/Prenat (Isabel-Brenda) 1 tab DAILY PO Last administered on 08/29/18at 08:20; Admin Dose 1 TAB; Start 08/29/18 at 09:00 Sevelamer Carbonate (Renvela) 0.8 gm WITH MEALS PO Last administered on 08/29/18 at 12:39; Admin Dose 0.8 GM; Start 08/28/18 at 18:00 Insulin Aspart (Novolog Insulin Pen) NOVOLOG *MILD* ALGORITHM WITH MEALS BEDTIME SC Last administered on 08/29/18at 09:01; Admin Dose 3 UNIT; Start 08/28/18 at 18:00 Miscellaneous Information 1 ea NOTE XX ; Start 08/28/18 at 18:30 Glucose (Glutose) 15 gm Q15M PRN PO DECREASED GLUCOSE; Start 08/28/18 at 18:30 Glucose (Glutose) 22.5 gm Q15M PRN PO DECREASED GLUCOSE; Start 08/28/18 at 18:30 Dextrose (D50w Syringe) 25 ml Q15M PRN IV DECREASED GLUCOSE; Start 08/28/18 at 18:30 Dextrose (D50w Syringe) 50 ml Q15M PRN IV DECREASED GLUCOSE; Start 08/28/18 at 18:30 Glucagon (Glucagen) 1 mg Q15M PRN IM DECREASED GLUCOSE; Start 08/28/18 at 18:30 Glucose (Glutose) 15 gm Q15M PRN BUCCAL DECREASED GLUCOSE; Start 08/28/18 at 18:30 Heparin Sodium (Porcine) 250 ml @ 10.06 mls/ hr PER VASCULAR SURG IV Last administered on 08/29/18at 07:02; Admin Dose 12 MLS/HR; Start 08/28/18 at 18:30 Vancomycin HCl (Vanco Iv Per Pharmacy) VANCOMYCIN PER PHARMACY PER PROTOCOL XX ; Start 08/28/18 at 18:30 IV Flush (NS 3 ml) 3 ml PER PROTOCOL IV ; Start 08/28/18 at 18:30 Acetaminophen/ Hydrocodone Bitart ([place] (5/325)) 2 tab Q6H PRN PO .SEVERE PAIN 7-10 Last administered on 08/29/18at 08:36; Admin Dose 2 TAB; Start 08/28/18 at 18:30 Hydromorphone HCl (Dilaudid) 0.5 mg Q4H PRN IV .SEVERE PAIN 7-10; Start 08/28/18 at 18:30 Albumin Human 100 ml @ 100 mls/hr WITH DIALYSIS PRN IV SBP <90 DURING DIALYSIS Last administered on 08/29/18at 10:50; Admin Dose 100 MLS/HR; Start 08/28/18 at 22:30 Sodium Chloride (NS) -To prime the dialy... DIRECTED FOR HD PRN IV HD; Start 08/28/18 at 22:30 Metolazone (Zaroxolyn) 10 mg BID PO Last administered on 08/28/18at 23:38; Admin Dose 10 MG; Start 08/28/18 at 23:00 Miscellaneous Information (*Rx Drug Level Order Reminder*) VANCO RANDOM W/ AM LABS... 0500 ONCE XX ; Start 08/30/18 at 05:00; Stop 08/30/18 at 05:01 Clopidogrel Bisulfate (plaVIX) 75 mg DAILY PO Last administered on 08/29/18at 09:06; Admin Dose 75 MG; Start 08/29/18 at 09:00 Insulin Aspart (Novolog Insulin Pen) 8 unit WITH MEALS SC Last administered on 08/29/18at 12:49; Admin Dose 8 UNIT; Start 08/29/18 at 11:50 Insulin Glargine (Lantus) 20 units DAILY@2000 SC ; Start 08/29/18 at 20:00 Allergies: Coded Allergies: No Known Allergies (Verified Allergy, Mild, 08/28/18) Past Surgical History Past Surgical Hx: other (AV fistula surgery ) Social History Alcohol Use: none Smoking Status: Never smoker Drug Use: none Exam/Review of Systems Vital Signs Vitals Vital Signs Date Temp Pulse Resp B/P (MAP) Pulse Ox O2 O2 Flow FiO2 Time Delivery Rate 08/29/18 80 13:20 08/29/18 98.5 18 96/46 (63) 97 11:59 08/29/18 Room Air 10:20 08/28/18 2 15:53 Intake and Output 08/28/18 08/28/18 08/29/18 1515:00 23:00 07:00 IntakeIntake Total 1150 ml OutputOutput Total 0 ml BalanceBalance 1150 ml Exam Constitutional: alert, oriented Psych: no complaints, nl mood/affect Head: normocephalic, atraumatic Neck: supple; No jvd Respiratory: clear to auscultation; No crackles/rales Cardiovascular: regular rate and rhythm, edema (trace), systolic murmur (2/6 GREGORY) Gastrointestinal: soft, non-tender; No distended 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: nl mental status, nl speech Labs Result Diagram: 08/29/18 0544 08/29/18 0543 Results 24hrs Laboratory Tests Test 08/28/18 16:03 08/28/18 16:05 08/28/18 16:06 08/28/18 19:06 POC Venous Lactate 2.6 *H Prothrombin Time 14.2 14.2 Prothrombin Time 1.1 1.1 Ratio INR International 1.09 1.09 Normalized Ratio Activated 34.4 31.4 Partial Thromboplast Time Sodium Level 136 Potassium Level 6.0 H Chloride Level 89 L Carbon Dioxide Level 28 Anion Gap 19 H Blood Urea Nitrogen 76 H Creatinine 10.00 H Est Glomerular 5 L Filtrat Rate mL/min Glucose Level 229 H Calcium Level 9.2 Total Bilirubin 0.2 Direct Bilirubin 0.00 Indirect Bilirubin 0.2 Aspartate Amino 13 L Transf (AST/SGOT) Alanine < 6 L Aminotransferase (ALT /SGPT) Alkaline Phosphatase 58 Troponin I < 0.012 Total Protein 9.4 H Albumin 4.7 Globulin 4.70 H Albumin/Globulin 1.00 Ratio White Blood Count 8.9 8.6 Red Blood Count 4.15 L 4.10 L Hemoglobin 12.2 L 12.1 L Hematocrit 38.4 L 38.1 L Mean Corpuscular 92.5 92.9 Volume Mean Corpuscular 29.4 29.5 Hemoglobin Mean Corpuscular 31.8 L 31.8 L Hemoglobin Concent Red Cell Distribution 14.4 14.3 Width Platelet Count 190 174 Mean Platelet Volume 11.6 H 11.7 H Immature Granulocytes 0.300 0.700 H % Neutrophils % 62.6 57.3 Lymphocytes % 23.3 26.2 Monocytes % 11.2 H 12.7 H Eosinophils % 2.0 2.3 Basophils % 0.6 0.8 Nucleated Red Blood 0.0 0.0 Cells % Immature Granulocytes 0.030 0.060 H # Neutrophils # 5.6 4.9 Lymphocytes # 2.1 2.3 Monocytes # 1.0 H 1.1 H Eosinophils # 0.2 0.2 Basophils # 0.1 0.1 Nucleated Red Blood 0.0 0.0 Cells # Uric Acid 6.8 C-Reactive Protein 5.6 H Test 08/28/18 19:07 08/28/18 19:19 08/28/18 23:12 08/29/18 01:17 Erythrocyte 110 H Sedimentation Rate Lactic Acid Level 2.6 *H 2.5 *H Bedside Glucose 172 Test 08/29/18 05:43 08/29/18 05:44 4/5/19 07:32 08/29/18 08:18 Sodium Level 137 Potassium Level 5.5 H Chloride Level 95 L Carbon Dioxide Level 27 Anion Gap 15 H Blood Urea Nitrogen 83 H Creatinine 10.37 H Est Glomerular 5 L Filtrat Rate mL/min Glucose Level 252 H Calcium Level 8.6 Total Bilirubin 0.1 L Direct Bilirubin 0.00 Indirect Bilirubin 0.1 Aspartate Amino 13 L Transf (AST/SGOT) Alanine < 6 L Aminotransferase (ALT /SGPT) Alkaline Phosphatase 52 Total Protein 7.3 # Albumin 3.8 Globulin 3.50 H Albumin/Globulin 1.08 Ratio Hepatitis B Surface NEGATIVE Antigen Hepatitis B Surface INDETERMINATE Antibody White Blood Count 5.2 # Red Blood Count 3.48 L Hemoglobin 10.2 L Hematocrit 32.3 L Mean Corpuscular 92.8 Volume Mean Corpuscular 29.3 Hemoglobin Mean Corpuscular 31.6 L Hemoglobin Concent Red Cell Distribution 14.4 Width Platelet Count 171 Mean Platelet Volume 12.3 H Immature Granulocytes 0.400 % Neutrophils % 50.7 Lymphocytes % 29.6 Monocytes % 12.9 H Eosinophils % 5.2 Basophils % 1.2 Nucleated Red Blood 0.0 Cells % Immature Granulocytes 0.020 # Neutrophils # 2.7 Lymphocytes # 1.5 Monocytes # 0.7 Eosinophils # 0.3 Basophils # 0.1 Nucleated Red Blood 0.0 Cells # Activated 56.5 H Partial Thromboplast Time Hemoglobin A1c 7.8 H Lactic Acid Level 1.9 Bedside Glucose 226 H Test 08/29/18 12:38 08/29/18 13:09 Bedside Glucose 107 Activated 67.2 H Partial Thromboplast Time Medications Medications Current Medications Furosemide (Lasix) 160 mg BID PO Last administered on 08/28/18at 21:10; Admin Dose 160 MG; Start 08/28/18 at 21:00 Multivit/Ca Carb/ B Cmplx/FA/Prenat (Isabel-Brenda) 1 tab DAILY PO Last admin istered on 08/29/18at 08:20; Admin Dose 1 TAB; Start 08/29/18 at 09:00 Sevelamer Carbonate (Renvela) 0.8 gm WITH MEALS PO Last administered on 08/29/18at 12:39; Admin Dose 0.8 GM; Start 08/28/18 at 18:00 Insulin Aspart (Novolog Insulin Pen) NOVOLOG *MILD* ALGORITHM WITH MEALS BEDTIME SC Last administered on 08/29/18at 09:01; Admin Dose 3 UNIT; Start 08/28/18 at 18:00 Miscellaneous Information 1 ea NOTE XX ; Start 08/28/18 at 18:30 Glucose (Glutose) 15 gm Q15M PRN PO DECREASED GLUCOSE; Start 08/28/18 at 18:30 Glucose (Glutose) 22.5 gm Q15M PRN PO DECREASED GLUCOSE; Start 08/28/18 at 18:30 Dextrose (D50w Syringe) 25 ml Q15M PRN IV DECREASED GLUCOSE; Start 08/28/18 at 18:30 Dextrose (D50w Syringe) 50 ml Q15M PRN IV DECREASED GLUCOSE; Start 08/28/18 at 18:30 Glucagon (Glucagen) 1 mg Q15M PRN IM DECREASED GLUCOSE; Start 08/28/18 at 18:30 Glucose (Glutose) 15 gm Q15M PRN BUCCAL DECREASED GLUCOSE; Start 08/28/18 at 18:30 Heparin Sodium (Porcine) 250 ml @ 10.06 mls/ hr PER VASCULAR SURG IV Last ad ministered on 08/29/18at 07:02; Admin Dose 12 MLS/HR; Start 08/28/18 at 18:30 Vancomycin HCl (Vanco Iv Per Pharmacy) VANCOMYCIN PER PHARMACY PER PROTOCOL XX ; Start 08/28/18 at 18:30 IV Flush (NS 3 ml) 3 ml PER PROTOCOL IV ; Start 08/28/18 at 18:30 Acetaminophen/ Hydrocodone Bitart ([place] (5/325)) 2 tab Q6H PRN PO .SEVERE PAIN 7-10 Last administered on 08/29/18at 08:36; Admin Dose 2 TAB; Start 08/28/18 at 18:30 Hydromorphone HCl (Dilaudid) 0.5 mg Q4H PRN IV .SEVERE PAIN 7-10; Start 08/28/18 at 18:30 Albumin Human 100 ml @ 100 mls/hr WITH DIALYSIS PRN IV SBP <90 DURING DIALYSIS Last administered on 08/29/18at 10:50; Admin Dose 100 MLS/HR; Start 08/28/18 at 22:30 Sodium Chloride (NS) -To prime the dialy... DIRECTED FOR HD PRN IV HD; Start 08/28/18 at 22:30 Metolazone (Zaroxolyn) 10 mg BID PO Last administered on 08/28/18at 23:38; Admin Dose 10 MG; Start 08/28/18 at 23:00 Miscellaneous Information (*Rx Drug Level Order Reminder*) VANCO RANDOM W/ AM LABS... 0500 ONCE XX ; Start 08/30/18 at 05:00; Stop 08/30/18 at 05:01 Clopidogrel Bisulfate (plaVIX) 75 mg DAILY PO Last administered on 08/29/18at 0 9:06; Admin Dose 75 MG; Start 08/29/18 at 09:00 Insulin Aspart (Novolog Insulin Pen) 8 unit WITH MEALS SC Last administered on 08/29/18at 12:49; Admin Dose 8 UNIT; Start 08/29/18 at 11:50 Insulin Glargine (Lantus) 20 units DAILY@2000 SC ; Start 08/29/18 at 20:00 LAVON SEE Aug 29, 2018 14:38
[2018-08-29] MEDS: ATORVASTATIN 40 MG TAB PO SCH (20:12)
[2018-08-29] MEDS: INSULIN GLARGINE [LANTus] (100 UNITS/ML) SYG SC SCH (20:20)
[2018-08-29] MEDS ORDERED: IODIXANOL LOCM 50 ML BTL ONE (20:53)
[2018-08-29] MEDS ORDERED: SOD CHLORIDE 0.9% 100 ML ONE (20:53)
[2018-08-29] MEDS ORDERED: IODIXANOL LOCM 100 ML BTL ONE (20:53)
[2018-08-30] VITALS (25 sets, daily range): BP systolic 102–126; BP diastolic 39–64; PULSE 39–85; RESP 18
[2018-08-30] MEDS: SEVELAMER CARBONATE 0.8 GM PKT PO SCH ×3 (08:22→18:32)
[2018-08-30] MEDS: MULTIVIT/CA CARB/B CMPLX/FA TAB PO SCH (08:23)
[2018-08-30] MEDS: METOLAZONE 10 MG TAB PO SCH ×2 (08:23→20:32)
[2018-08-30] MEDS: CLOPIDOGREL 75 MG TAB PO SCH (08:24)
[2018-08-30] MEDS: FUROSEMIDE 40 MG TAB PO SCH ×2 (08:24→20:32)
[2018-08-30] MEDS: INSULIN ASPART [NOVOLOG] 3 ML PEN SC SCH ×7 (09:13→20:30)
--- NOTE | 2018-08-30 12:35 | PN ---
Date/Time of Note Date/Time of Note DATE: 08/30/18 TIME: 12:32 Assessment/Plan Lines/Catheters IV Catheter Type (from Nrs): Peripheral IV Pierre in Place (from Nrs): No Assessment/Plan Chief Complaint/Hosp Course -LLE edema and redness improving. -Continue with antibiotics for 10 days -CTA of the abd/pelvis with runoff demonstrated flow to the ankle although there are stenosis identified in bilateral infrainguinal disease. 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 Information provided -Recommend using 17gauge needle for the fistula for now. He has cephalic arch stenosis and small caliber vein -Transition Heparin gtt to Eliquis. History of Afib/DVT -Started plavix in addition to anticoagulation. Subjective 24 Hr Interval Summary no new vascular events overnight Exam/Review of Systems Vital Signs Vitals Vital Signs Date Temp Pulse Resp B/P (MAP) Pulse Ox O2 O2 Flow FiO2 Time Delivery Rate 08/30/18 82 12:25 08/30/18 98.4 18 102/45 96 Nasal 11:35 (64) Cannula 08/28/18 2 15:53 Intake and Output 08/29/18 08/29/18 08/30/18 1414:59 22:59 06:59 IntakeIntake Total 730 ml 400 ml OutputOutput Total 2300 ml BalanceBalance -2300 ml 730 ml 400 ml Exam Free Text/Dictation GENERAL: Alert and oriented x3, speaks Swedish. HEENT: Normocephalic, atraumatic. Mucosa moist. NECK: Supple, no carotid bruit. PULMONARY: Coarse breath sounds bilaterally, some crackles at the bases. CARDIOVASCULAR: S1, S2 present, irregular. ABDOMEN: Soft, nontender, nondistended. Bowel sounds positive. Large truncal obesity. EXTREMITIES: Lower extremities: -Right lower extremity palpable femoral pulse, nonpalpable pedal pulse. Motor and sensory intact. Cap refill 3 to 4 seconds. Presence of varicose veins and large leg. -Left lower extremity palpable femoral pulse, nonpalpable pedal pulse. Motor and sensory intact. Cap refill 3 to 4 seconds. Infectious ulcer of the third toe improving, erythema resolving. first, second and third toe bluish discoloration slightly improved. Nontender. Varicose veins and edema of the left lower extremity with presence of mild lipodermatosclerosis. Results Result Diagram: 08/30/18 0637 08/30/18 0637 VANIA PEREYRA MD Aug 30, 2018 12:35
[2018-08-30] MEDS: HEPARIN 25000 UNITS/250 ML 250 ML IV SCH (15:47)
[2018-08-30] MEDS ORDERED: VANCOMYCIN 1 GM 250 ML IVPB SCH (16:00)
--- NOTE | 2018-08-30 16:44 | CONS ---
Assessment/Plan Assessment/Plan Assessment/Plan (Daily) 1. Acute hyperkalemia 2. acute Fluid overload 3. ESRD on HD MWF Schedule 4. LE feet cellultis vs obstructive PAD 5. h/O HTN ' 6. H/o HL Plan: s/p HD today 2.5 L removed sp LE angiogram by Vascular surgery will follow up , pt regular schedule is MWF Patient seen in collaboration with Dr Tobar. Dw staff Consultation Date/Type/Reason Admit Date/Time Aug 28, 2018 at 17:26 Initial Consult Date 08/29/18 Type of Consult NEPHROLOGY Requesting Provider: VANIA PEREYRA MD Date/Time of Note DATE: 08/30/18 TIME: 16:43 24 HR Interval Summary Free Text/Dictation c/o BLE pain; negative for DVT plan for angiogram on Saturday HD today-2.5L removed [facility] staff Detailed Summary Eyes: no complaints ENT: no complaints Respiratory: no complaints Exam/Review of Systems Exam Vitals Vital Signs Date Temp Pulse Resp B/P (MAP) Pulse Ox O2 O2 Flow FiO2 Time Delivery Rate 08/30/18 72 16:14 08/30/18 98.4 18 102/42 96 Room Air 15:27 (62) 08/28/18 2 15:53 Intake and Output 08/29/18 08/29/18 08/30/18 1515:00 23:00 07:00 IntakeIntake Total 730 ml 400 ml OutputOutput Total 2300 ml BalanceBalance -2300 ml 730 ml 400 ml Constitutional: alert, well developed Psych: nl mood/affect Head: normocephalic Eyes: nl lids, nl sclera ENMT: nl external ears & nose Neck: non-tender Respiratory: diminished breath sounds (at bases bilaterally) Cardiovascular: nl pulses, other (s1s2) Gastrointestinal: soft, non-tender Musculoskeletal: muscle weakness, swelling Extremities: edema 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: nl speech, other (alert/awake) Skin: other (erythema ble ) Lymph: nontender Results Result Diagram: 08/30/18 0637 08/30/18 0637 Results 24hrs Laboratory Tests Test 08/29/18 18:22 08/29/18 18:53 08/29/18 20:07 08/30/18 03:47 Bedside Glucose 154 169 Activated 55.0 H 86.2 *H Partial Thromboplast Time Test 08/30/18 06:37 08/30/18 08:16 08/30/18 13:14 08/30/18 13:18 White Blood Count 7.2 # Red Blood Count 3.55 L Hemoglobin 10.4 L Hematocrit 32.9 L Mean Corpuscular Volume 92.7 Mean Corpuscular 29.3 Hemoglobin Mean Corpuscular 31.6 L Hemoglobin Concent Red Cell Distribution 14.3 Width Platelet Count 171 Mean Platelet Volume 12.0 H Immature Granulocytes % 0.400 Neutrophils % 61.6 Lymphocytes % 22.2 Monocytes % 10.6 Eosinophils % 4.4 Basophils % 0.8 Nucleated Red Blood 0.0 Cells % Immature Granulocytes # 0.030 Neutrophils # 4.5 Lymphocytes # 1.6 Monocytes # 0.8 Eosinophils # 0.3 Basophils # 0.1 Nucleated Red Blood 0.0 Cells # Sodium Level 136 Potassium Level 5.6 H Chloride Level 93 L Carbon Dioxide Level 27 Anion Gap 16 H Blood Urea Nitrogen 61 H Creatinine 8.91 H Est Glomerular Filtrat 6 L Rate mL/min Glucose Level 171 Calcium Level 8.5 Random Vancomycin Level 18.6 Bedside Glucose 188 139 Activated 62.5 H Partial Thromboplast Time Test 08/30/18 14:26 Bedside Glucose 131 Medications Medication Current Medications Furosemide (Lasix) 160 mg BID PO Last administered on 08/30/18at 08:24; Admin Dose 160 MG; Start 08/28/18 at 21:00 Multivit/Ca Carb/ B Cmplx/FA/Prenat (Isabel-Brenda) 1 tab DAILY PO Last administered on 08/30/18 08:23; Admin Dose 1 TAB; Start 08/29/18 at 09:00 Sevelamer Carbonate (Renvela) 0.8 gm WITH MEALS PO Last administered on 08/30/18at 14:27; Admin Dose 0.8 GM; Start 08/28/18 at 18:00 Insulin Aspart (Novolog Insulin Pen) NOVOLOG *MILD* ALGORITHM WITH MEALS BEDTIME SC Last administered on 08/30/18 09:13; Admin Dose 2 UNIT; Start 08/28/18 at 18:00 Miscellaneous Information 1 ea NOTE XX ; Start 08/28/18 at 18:30 Glucose (Glutose) 15 gm Q15M PRN PO DECREASED GLUCOSE; Start 08/28/18 at 18:30 Glucose (Glutose) 22.5 gm Q15M PRN PO DECREASED GLUCOSE; Start 08/28/18 at 18:30 Dextrose (D50w Syringe) 25 ml Q15M PRN IV DECREASED GLUCOSE; Start 08/28/18 at 18:30 Dextrose (D50w Syringe) 50 ml Q15M PRN IV DECREASED GLUCOSE; Start 08/28/18 at 18:30 Glucagon (Glucagen) 1 mg Q15M PRN IM DECREASED GLUCOSE; Start 08/28/18 at 18:30 Glucose (Glutose) 15 gm Q15M PRN BUCCAL DECREASED GLUCOSE; Start 08/28/18 at 18:30 Heparin Sodium (Porcine) 250 ml @ 10.06 mls/ hr PER VASCULAR SURG IV Last administered on 08/30/18at 15:47; Admin Dose 13.078 MLS/HR; Start 08/28/18 at 18:30 Vancomycin HCl (Vanco Iv Per Pharmacy) VANCOMYCIN PER PHARMACY PER PROTOCOL XX ; Start 08/28/18 at 18:30 IV Flush (NS 3 ml) 3 ml PER PROTOCOL IV ; Start 08/28/18 at 18:30 Acetaminophen/ Hydrocodone Bitart ([place] (5/325)) 2 tab Q6H PRN PO .SEVERE PAIN 7-10 Last administered on 08/29/18at 20:12; Admin Dose 2 TAB; Start 08/28/18 at 18:30 Hydromorphone HCl (Dilaudid) 0.5 mg Q4H PRN IV .SEVERE PAIN 7-10; Start 08/28/18 at 18:30 Albumin Human 100 ml @ 100 mls/hr WITH DIALYSIS PRN IV SBP <90 DURING DIALYSIS Last administered on 08/29/18at 10:50; Admin Dose 100 MLS/HR; Start 08/28/18 at 22:30 Sodium Chloride (NS) -To prime the dialy... DIRECTED FOR HD PRN IV HD; Start 08/28/18 at 22:30 Metolazone (Zaroxolyn) 10 mg BID PO Last administered on 08/30/18at 08:23; Admin Dose 10 MG; Start 08/28/18 at 23:00 Clopidogrel Bisulfate (plaVIX) 75 mg DAILY PO Last administered on 08/30/18at 08:24; Admin Dose 75 MG; Start 08/29/18 at 09:00 Insulin Aspart (Novolog Insulin Pen) 8 unit WITH MEALS SC Last administered on 08/30/18at 14:37; Admin Dose 8 UNIT; Start 08/29/18 at 11:50 Insulin Glargine (Lantus) 20 units DAILY@2000 SC Last administered on 08/29/18at 20:20; Admin Dose 20 UNITS; Start 08/29/18 at 20:00 Atorvastatin Calcium (Lipitor) 40 mg HS PO Last administered on 08/29/18at 20:12; Admin Dose 40 MG; Start 08/29/18 at 21:00 Vancomycin HCl 250 ml @ 125 mls/hr ONCE IVPB ; Start 08/30/18 at 16:00; Stop 08/30/18 at 17:59 CATARINA GONCALVES Aug 30, 2018 16:44
--- NOTE | 2018-08-30 16:47 | PN ---
Date/Time of Note Date/Time of Note DATE: 08/30/18 TIME: 16:47 Assessment/Plan VTE Prophylaxis Risk score (from Nsg)>0 risk: 3 SCD applied (from Nsg): Yes Pharmacological prophylaxis: heparin Lines/Catheters IV Catheter Type (from Nrsg): Peripheral IV Urinary Cath still in place: No Assessment/Plan Hospital Course More comfortable appearing No distress Aox3 RRR Breathing comfortably Soft nt nd Ext: L foot with less erythema than prevoiusly, now localized to 2nd and 3rd toe. Warm but no rubor. No drainage. R foot now without erythema 67 yo male with PAD, DMII, and ESRD who presents with b/l foot pain - I suspect this is from vascular issue perhpas embolic event. Dc heparin drip and will transition back to Eliquis tonight - Given improvement with abx will continue for possible cellulitis as well - Pain control - Dr Cifuentes from podiatry and Dr Barker from general surgery have been consulted DMII: - basal/bolus insulin ESRD: - HD per Dr Tobar Hyperkalemia - Treated in ED PAD: - Aspirin and statin Result Diagram: 08/30/18 0637 08/30/1837 Results 24hrs Laboratory Tests Test 08/29/18 18:22 08/29/18 18:53 08/29/18 20:07 08/30/18 03:47 Bedside Glucose 154 169 Activated 55.0 H 86.2 *H Partial Thromboplast Time Test 08/30/18 06:37 08/30/18 08:16 08/30/18 13:14 08/30/18 13:18 White Blood Count 7.2 # Red Blood Count 3.55 L Hemoglobin 10.4 L Hematocrit 32.9 L Mean Corpuscular Volume 92.7 Mean Corpuscular 29.3 Hemoglobin Mean Corpuscular 31.6 L Hemoglobin Concent Red Cell Distribution 14.3 Width Platelet Count 171 Mean Platelet Volume 12.0 H Immature Granulocytes % 0.400 Neutrophils % 61.6 Lymphocytes % 22.2 Monocytes % 10.6 Eosinophils % 4.4 Basophils % 0.8 Nucleated Red Blood 0.0 Cells % Immature Granulocytes # 0.030 Neutrophils # 4.5 Lymphocytes # 1.6 Monocytes # 0.8 Eosinophils # 0.3 Basophils # 0.1 Nucleated Red Blood 0.0 Cells # Sodium Level 136 Potassium Level 5.6 H Chloride Level 93 L Carbon Dioxide Level 27 Anion Gap 16 H Blood Urea Nitrogen 61 H Creatinine 8.91 H Est Glomerular Filtrat 6 L Rate mL/min Glucose Level 171 Calcium Level 8.5 Random Vancomycin Level 18.6 Bedside Glucose 188 139 Activated 62.5 H Partial Thromboplast Time Test 08/30/18 14:26 Bedside Glucose 131 Subjective 24 Hr Interval Summary Free Text/Dictation Foot pain is improving Feeling better HD completed Exam/Review of Systems Exam Vitals Vital Signs Date Temp Pulse Resp B/P (MAP) Pulse Ox O2 O2 Flow FiO2 Time Delivery Rate 08/30/18 72 16:14 08/30/18 98.4 18 102/42 96 Room Air 15:27 (62) 08/28/18 2 15:53 Intake and Output 08/29/18 08/29/18 08/30/18 1515:00 23:00 07:00 IntakeIntake Total 730 ml 400 ml OutputOutput Total 2300 ml BalanceBalance -2300 ml 730 ml 400 ml Results Results 24hrs Laboratory Tests Test 08/29/18 18:22 08/29/18 18:53 08/29/18 20:07 08/30/18 03:47 Bedside Glucose 154 169 Activated 55.0 H 86.2 *H Partial Thromboplast Time Test 08/30/18 06:37 08/30/18 08:16 08/30/18 13:14 08/30/18 13:18 White Blood Count 7.2 # Red Blood Count 3.55 L Hemoglobin 10.4 L Hematocrit 32.9 L Mean Corpuscular Volume 92.7 Mean Corpuscular 29.3 Hemoglobin Mean Corpuscular 31.6 L Hemoglobin Concent Red Cell Distribution 14.3 Width Platelet Count 171 Mean Platelet Volume 12.0 H Immature Granulocytes % 0.400 Neutrophils % 61.6 Lymphocytes % 22.2 Monocytes % 10.6 Eosinophils % 4.4 Basophils % 0.8 Nucleated Red Blood 0.0 Cells % Immature Granulocytes # 0.030 Neutrophils # 4.5 Lymphocytes # 1.6 Monocytes # 0.8 Eosinophils # 0.3 Basophils # 0.1 Nucleated Red Blood 0.0 Cells # Sodium Level 136 Potassium Level 5.6 H Chloride Level 93 L Carbon Dioxide Level 27 Anion Gap 16 H Blood Urea Nitrogen 61 H Creatinine 8.91 H Est Glomerular Filtrat 6 L Rate mL/min Glucose Level 171 Calcium Level 8.5 Random Vancomycin Level 18.6 Bedside Glucose 188 139 Activated 62.5 H Partial Thromboplast Time Test 08/30/18 14:26 Bedside Glucose 131 Medications Medication Current Medications Furosemide (Lasix) 160 mg BID PO Last administered on 08/30/18at 08:24; Admin Dose 160 MG; Start 08/28/18 at 21:00 Multivit/Ca Carb/ B Cmplx/FA/Prenat (Isabel-Brenda) 1 tab DAILY PO Last administered on 08/30/18at 08:23; Admin Dose 1 TAB; Start 08/29/18 at 09:00 Sevelamer Carbonate (Renvela) 0.8 gm WITH MEALS PO Last administered on 08/30/18at 14:27; Admin Dose 0.8 GM; Start 08/28/18 at 18:00 Insulin Aspart (Novolog Insulin Pen) NOVOLOG *MILD* ALGORITHM WITH MEALS BEDTIME SC Last administered on 08/30/18at 09:13; Admin Dose 2 UNIT; Start 08/28/18 at 18:00 Miscellaneous Information 1 ea NOTE XX ; Start 08/28/18 at 18:30 Glucose (Glutose) 15 gm Q15M PRN PO DECREASED GLUCOSE; Start 08/28/18 at 18:30 Glucose (Glutose) 22.5 gm Q15M PRN PO DECREASED GLUCOSE; Start 08/28/18 at 18:30 Dextrose (D50w Syringe) 25 ml Q15M PRN IV DECREASED GLUCOSE; Start 08/28/18 at 18:30 Dextrose (D50w Syringe) 50 ml Q15M PRN IV DECREASED GLUCOSE; Start 08/28/18 at 18:30 Glucagon (Glucagen) 1 mg Q15M PRN IM DECREASED GLUCOSE; Start 08/28/18 at 18:30 Glucose (Glutose) 15 gm Q15M PRN BUCCAL DECREASED GLUCOSE; Start 08/28/18 at 18:30 Heparin Sodium (Porcine) 250 ml @ 10.06 mls/ hr PER VASCULAR SURG IV Last administered on 08/30/18at 15:47; Admin Dose 13.078 MLS/HR; Start 08/28/18 at 18:30 Vancomycin HCl (Vanco Iv Per Pharmacy) VANCOMYCIN PER PHARMACY PER PROTOCOL XX ; Start 08/28/18 at 18:30 IV Flush (NS 3 ml) 3 ml PER PROTOCOL IV ; Start 08/28/18 at 18:30 Acetaminophen/ Hydrocodone Bitart ([place] (5/325)) 2 tab Q6H PRN PO .SEVERE PAIN 7-10 Last administered on 08/29/18 20:12; Admin Dose 2 TAB; Start 08/28/18 at 18:30 Hydromorphone HCl (Dilaudid) 0.5 mg Q4H PRN IV .SEVERE PAIN 7-10; Start 08/28/18 at 18:30 Albumin Human 100 ml @ 100 mls/hr WITH DIALYSIS PRN IV SBP <90 DURING DIALYSIS Last administered on 08/29/18 10:50; Admin Dose 100 MLS/HR; Start 08/28/18 at 22:30 Sodium Chloride (NS) -To prime the dialy... DIRECTED FOR HD PRN IV HD; Start 08/28/18 at 22:30 Metolazone (Zaroxolyn) 10 mg BID PO Last administered on 08/30/18 08:23; Admin Dose 10 MG; Start 08/28/18 at 23:00 Clopidogrel Bisulfate (plaVIX) 75 mg DAILY PO Last administered on 08/30/18 08:24; Admin Dose 75 MG; Start 08/29/18 at 09:00 Insulin Aspart (Novolog Insulin Pen) 8 unit WITH MEALS SC Last administered on 08/30/18 14:37; Admin Dose 8 UNIT; Start 08/29/18 at 11:50 Insulin Glargine (Lantus) 20 units DAILY@2000 SC Last administered on 08/29/18 20:20; Admin Dose 20 UNITS; Start 08/29/18 at 20:00 Atorvastatin Calcium (Lipitor) 40 mg HS PO Last administered on 08/29/18 20:12; Admin Dose 40 MG; Start 08/29/18 at 21:00 Vancomycin HCl 250 ml @ 125 mls/hr ONCE IVPB ; Start 08/30/18 at 16:00; Stop 08/30/18 at 17:59 PAUL LINDER MD Aug 30, 2018 16:47
--- NOTE | 2018-08-30 17:33 | CONS ---
Assessment/Plan Assessment/Plan Hospital Course (Demo Recall) Right 2nd/3rd toe lesion: In my opinion with recent left leg intervention and no antiplatelets and stoppage of Eliquis, likely vascular occlusion and embolization and less likely cellulitis.Now turning gangrenous which fits [place]: Kaylee 1. Not on BB. No pauses or high grade block. Chronic per pt CAD: prior PCI. 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 Heparin stopped Exam/Review of Systems Vital Signs Vitals Vital Signs Date Temp Pulse Resp B/P (MAP) Pulse Ox O2 O2 Flow FiO2 Time Delivery Rate 08/30/18 72 16:14 08/30/18 98.4 18 102/42 96 Room Air 15:27 (62) 08/28/18 2 15:53 Intake and Output 08/29/18 08/29/18 08/30/18 1515:00 23:00 07:00 IntakeIntake Total 730 ml 400 ml OutputOutput Total 2300 ml BalanceBalance -2300 ml 730 ml 400 ml Exam Constitutional: alert, oriented Psych: no complaints, nl mood/affect Head: normocephalic, atraumatic Neck: No jvd Respiratory: diminished breath sounds; No clear to auscultation, No crackles/rales Cardiovascular: regular rate and rhythm; No edema Gastrointestinal: soft, non-tender Extremities: other (left third toe getting gangrenous ) 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: nl mental status, nl speech Labs Result Diagram: 08/30/18 0637 08/30/18 0637 Results 24hrs Laboratory Tests Test 08/29/18 18:22 08/29/18 18:53 08/29/18 20:07 08/30/18 03:47 Bedside Glucose 154 169 Activated 55.0 H 86.2 *H Partial Thromboplast Time Test 08/30/18 06:37 08/30/18 08:16 08/30/18 13:14 08/30/18 13:18 White Blood Count 7.2 # Red Blood Count 3.55 L Hemoglobin 10.4 L Hematocrit 32.9 L Mean Corpuscular Volume 92.7 Mean Corpuscular 29.3 Hemoglobin Mean Corpuscular 31.6 L Hemoglobin Concent Red Cell Distribution 14.3 Width Platelet Count 171 Mean Platelet Volume 12.0 H Immature Granulocytes % 0.400 Neutrophils % 61.6 Lymphocytes % 22.2 Monocytes % 10.6 Eosinophils % 4.4 Basophils % 0.8 Nucleated Red Blood 0.0 Cells % Immature Granulocytes # 0.030 Neutrophils # 4.5 Lymphocytes # 1.6 Monocytes # 0.8 Eosinophils # 0.3 Basophils # 0.1 Nucleated Red Blood 0.0 Cells # Sodium Level 136 Potassium Level 5.6 H Chloride Level 93 L Carbon Dioxide Level 27 Anion Gap 16 H Blood Urea Nitrogen 61 H Creatinine 8.91 H Est Glomerular Filtrat 6 L Rate mL/min Glucose Level 171 Calcium Level 8.5 Random Vancomycin Level 18.6 Bedside Glucose 188 139 Activated 62.5 H Partial Thromboplast Time Test 08/30/18 14:26 Bedside Glucose 131 Medications Medications Current Medications Furosemide (Lasix) 160 mg BID PO Last administered on 08/30/18 08:24; Admin Dose 160 MG; Start 08/28/18 at 21:00 Multivit/Ca Carb/ B Cmplx/FA/Prenat (Isabel-Brenda) 1 tab DAILY PO Last admi nistered on 08/30/18at 08:23; Admin Dose 1 TAB; Start 08/29/18 at 09:00 Sevelamer Carbonate (Renvela) 0.8 gm WITH MEALS PO Last administered on 08/30/18 14:27; Admin Dose 0.8 GM; Start 08/28/18 at 18:00 Insulin Aspart (Novolog Insulin Pen) NOVOLOG *MILD* ALGORITHM WITH MEALS BEDTIME SC Last administered on 08/30/18 09:13; Admin Dose 2 UNIT; Start 08/28/18 at 18:00 Miscellaneous Information 1 ea NOTE XX ; Start 08/28/18 at 18:30 Glucose (Glutose) 15 gm Q15M PRN PO DECREASED GLUCOSE; Start 08/28/18 at 18:30 Glucose (Glutose) 22.5 gm Q15M PRN PO DECREASED GLUCOSE; Start 08/28/18 at 18:30 Dextrose (D50w Syringe) 25 ml Q15M PRN IV DECREASED GLUCOSE; Start 08/28/18 at 18:30 Dextrose (D50w Syringe) 50 ml Q15M PRN IV DECREASED GLUCOSE; Start 08/28/18 at 18:30 Glucagon (Glucagen) 1 mg Q15M PRN IM DECREASED GLUCOSE; Start 08/28/18 at 18:30 Glucose (Glutose) 15 gm Q15M PRN BUCCAL DECREASED GLUCOSE; Start 08/28/18 at 18:30 Vancomycin HCl (Vanco Iv Per Pharmacy) VANCOMYCIN PER PHARMACY PER PROTOCOL XX ; Start 08/28/18 at 18:30 IV Flush (NS 3 ml) 3 ml PER PROTOCOL IV ; Start 08/28/18 at 18:30 Acetaminophen/ Hydrocodone Bitart ([place] (5/325)) 2 tab Q6H PRN PO .SEVERE PAIN 7-10 Last administered on 08/29/18at 20:12; Admin Dose 2 TAB; Start 08/28/18 at 18:30 Hydromorphone HCl (Dilaudid) 0.5 mg Q4H PRN IV .SEVERE PAIN 7-10; Start 08/28/18 at 18:30 Albumin Human 100 ml @ 100 mls/hr WITH DIALYSIS PRN IV SBP <90 DURING DIALYSIS Last administered on 08/29/18at 10:50; Admin Dose 100 MLS/HR; Start 08/28/18 at 22:30 Sodium Chloride (NS) -To prime the dialy... DIRECTED FOR HD PRN IV HD; Start 08/28/18 at 22:30 Metolazone (Zaroxolyn) 10 mg BID PO Last administered on 08/30/18at 08:23; Admin Dose 10 MG; Start 08/28/18 at 23:00 Clopidogrel Bisulfate (plaVIX) 75 mg DAILY PO Last administered on 08/30/18at 0 8:24; Admin Dose 75 MG; Start 08/29/18 at 09:00 Insulin Aspart (Novolog Insulin Pen) 8 unit WITH MEALS SC Last administered on 08/30/18at 14:37; Admin Dose 8 UNIT; Start 08/29/18 at 11:50 Insulin Glargine (Lantus) 20 units DAILY@2000 SC Last administered on 08/29/18 20:20; Admin Dose 20 UNITS; Start 08/29/18 at 20:00 Atorvastatin Calcium (Lipitor) 40 mg HS PO Last administered on 08/29/18at 20:12; Admin Dose 40 MG; Start 08/29/18 at 21:00 Vancomycin HCl 250 ml @ 125 mls/hr ONCE IVPB Last administered on 08/30/18 17:17; Admin Dose 125 MLS/HR; Start 08/30/18 at 16:00; Stop 08/30/18 at 17:59 Apixaban (Eliquis) 5 mg QPM PO ; Start 08/30/18 at 21:00; Status LAVON TUCKER Aug 30, 2018 17:33
[2018-08-30] MEDS: APIXABAN 5 MG TABLET PO SCH (20:31)
[2018-08-30] MEDS: ATORVASTATIN 40 MG TAB PO SCH (20:32)
[2018-08-30] MEDS: INSULIN GLARGINE [LANTus] (100 UNITS/ML) SYG SC SCH (20:43)
[2018-08-30] MEDS ORDERED: APIXABAN 5 MG TABLET PO SCH (21:00)
[2018-08-31] VITALS (11 sets, daily range): BP systolic 102–134; BP diastolic 44–70; PULSE 37–86; RESP 18
[2018-08-31] MEDS: SEVELAMER CARBONATE 0.8 GM PKT PO SCH ×3 (01:00→17:52)
[2018-08-31] MEDS: HYDROCODONE/APAP (5/325) TAB PO PRN (05:08)
--- NOTE | 2018-08-31 05:25 | CONS ---
Assessment/Plan Assessment/Plan Assessment/Plan (Daily) 1. Acute hyperkalemia 2. acute Fluid overload 3. ESRD on HD MWF Schedule 4. LE feet cellulitis vs obstructive PAD 5. h/O HTN ' 6. H/o HL Plan: s/p HD yesterday 2.5 L removed sp LE angiogram by Vascular surgery will follow up , pt regular schedule is MWF Patient seen in collaboration with Dr Tobar. [facility] staff Consultation Date/Type/Reason Admit Date/Time Aug 28, 2018 at 17:26 Initial Consult Date 08/29/18 Type of Consult NEPHROLOGY Requesting Provider: VANIA PEREYRA MD Date/Time of Note DATE: 08/31/18 TIME: 05:24 24 HR Interval Summary Free Text/Dictation sleeping; easily awaken when called by name patient states BLE pain is better today; negative for DVT plan for angiogram on Saturday HD yesterday-2.5L removed [facility] staff Exam/Review of Systems Exam Vitals Vital Signs Date Temp Pulse Resp B/P (MAP) Pulse Ox O2 O2 Flow FiO2 Time Delivery Rate 08/31/18 97.9 75 18 102/44 97 04:00 (63) 08/30/18 Room Air 15:27 08/28/18 2 15:53 Intake and Output 08/30/18 08/30/18 08/31/18 1515:00 23:00 07:00 IntakeIntake Total 1050 ml OutputOutput Total 3100 ml BalanceBalance -3100 ml 1050 ml Constitutional: alert, oriented, well developed, obese Psych: nl mood/affect Head: atraumatic Eyes: nl lids, nl sclera ENMT: nl external ears & nose Neck: non-tender Cardiovascular: nl pulses, other (S1S2) Gastrointestinal: soft, non-tender Musculoskeletal: muscle weakness Extremities: normal pulses 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: nl speech Lymph: nontender Results Result Diagram: 08/30/18 0637 08/30/1837 Results 24hrs Laboratory Tests Test 08/30/18 06:37 08/30/18 08:16 08/30/18 13:14 08/30/18 13:18 White Blood Count 7.2 # Red Blood Count 3.55 L Hemoglobin 10.4 L Hematocrit 32.9 L Mean Corpuscular Volume 92.7 Mean Corpuscular 29.3 Hemoglobin Mean Corpuscular 31.6 L Hemoglobin Concent Red Cell Distribution 14.3 Width Platelet Count 171 Mean Platelet Volume 12.0 H Immature Granulocytes % 0.400 Neutrophils % 61.6 Lymphocytes % 22.2 Monocytes % 10.6 Eosinophils % 4.4 Basophils % 0.8 Nucleated Red Blood 0.0 Cells % Immature Granulocytes # 0.030 Neutrophils # 4.5 Lymphocytes # 1.6 Monocytes # 0.8 Eosinophils # 0.3 Basophils # 0.1 Nucleated Red Blood 0.0 Cells # Sodium Level 136 Potassium Level 5.6 H Chloride Level 93 L Carbon Dioxide Level 27 Anion Gap 16 H Blood Urea Nitrogen 61 H Creatinine 8.91 H Est Glomerular Filtrat 6 L Rate mL/min Glucose Level 171 Calcium Level 8.5 Random Vancomycin Level 18.6 Bedside Glucose 188 139 Activated 62.5 H Partial Thromboplast Time Test 08/30/18 14:26 08/30/18 18:30 08/30/18 19:04 08/30/18 20:30 Bedside Glucose 131 193 147 Activated 24.0 Partial Thromboplast Time Medications Medication Current Medications Furosemide (Lasix) 160 mg BID PO Last administered on 08/30/18at 20:32; Admin Dose 160 MG; Start 08/28/18 at 21:00 Multivit/Ca Carb/ B Cmplx/FA/Prenat (Isabel-Brenda) 1 tab DAILY PO Last administered on 08/30/18 08:23; Admin Dose 1 TAB; Start 08/29/18 at 09:00 Sevelamer Carbonate (Renvela) 0.8 gm WITH MEALS PO Last administered on 08/30/18 18:32; Admin Dose 0.8 GM; Start 08/28/18 at 18:00 Insulin Aspart (Novolog Insulin Pen) NOVOLOG *MILD* ALGORITHM WITH MEALS BEDTIME SC Last administered on 08/30/18at 18:42; Admin Dose 2 UNIT; Start 08/28/18 at 18:00 Miscellaneous Information 1 ea NOTE XX ; Start 08/28/18 at 18:30 Glucose (Glutose) 15 gm Q15M PRN PO DECREASED GLUCOSE; Start 08/28/18 at 18:30 Glucose (Glutose) 22.5 gm Q15M PRN PO DECREASED GLUCOSE; Start 08/28/18 at 18:30 Dextrose (D50w Syringe) 25 ml Q15M PRN IV DECREASED GLUCOSE; Start 08/28/18 at 18:30 Dextrose (D50w Syringe) 50 ml Q15M PRN IV DECREASED GLUCOSE; Start 08/28/18 at 18:30 Glucagon (Glucagen) 1 mg Q15M PRN IM DECREASED GLUCOSE; Start 08/28/18 at 18:30 Glucose (Glutose) 15 gm Q15M PRN BUCCAL DECREASED GLUCOSE; Start 08/28/18 at 18:30 Vancomycin HCl (Vanco Iv Per Pharmacy) VANCOMYCIN PER PHARMACY PER PROTOCOL XX ; Start 08/28/18 at 18:30 IV Flush (NS 3 ml) 3 ml PER PROTOCOL IV ; Start 08/28/18 at 18:30 Acetaminophen/ Hydrocodone Bitart ([place] (5/325)) 2 tab Q6H PRN PO .SEVERE PAIN 7-10 Last administered on 08/31/18 05:08; Admin Dose 2 TAB; Start 08/28/18 at 18:30 Hydromorphone HCl (Dilaudid) 0.5 mg Q4H PRN IV .SEVERE PAIN 7-10; Start 08/28/18 at 18:30 Albumin Human 100 ml @ 100 mls/hr WITH DIALYSIS PRN IV SBP <90 DURING DIALYSIS Last administered on 08/29/18 10:50; Admin Dose 100 MLS/HR; Start 08/28/18 at 22:30 Sodium Chloride (NS) -To prime the dialy... DIRECTED FOR HD PRN IV HD; Start 08/28/18 at 22:30 Metolazone (Zaroxolyn) 10 mg BID PO Last administered on 08/30/18 20:32; Admin Dose 10 MG; Start 08/28/18 at 23:00 Clopidogrel Bisulfate (plaVIX) 75 mg DAILY PO Last administered on 08/30/18 08:24; Admin Dose 75 MG; Start 08/29/18 at 09:00 Insulin Aspart (Novolog Insulin Pen) 8 unit WITH MEALS SC Last administered on 08/30/18 18:41; Admin Dose 8 UNIT; Start 08/29/18 at 11:50 Insulin Glargine (Lantus) 20 units DAILY@2000 SC Last administered on 08/30/18 20:43; Admin Dose 20 UNITS; Start 08/29/18 at 20:00 Atorvastatin Calcium (Lipitor) 40 mg HS PO Last administered on 4/6/19at 20:32; Admin Dose 40 MG; Start 08/29/18 at 21:00 Apixaban (Eliquis) 5 mg BID PO Last administered on 08/30/18at 20:31; Admin Dose 5 MG; Start 08/30/18 at 21:00 CATARINA GONCALVES Aug 31, 2018 05:25
[2018-08-31] MEDS: INSULIN ASPART [NOVOLOG] 3 ML PEN SC SCH ×7 (07:55→20:42)
[2018-08-31] MEDS: CLOPIDOGREL 75 MG TAB PO SCH (08:11)
[2018-08-31] MEDS: METOLAZONE 10 MG TAB PO SCH ×2 (08:11→20:37)
[2018-08-31] MEDS: FUROSEMIDE 40 MG TAB PO SCH ×2 (08:11→20:36)
[2018-08-31] MEDS: MULTIVIT/CA CARB/B CMPLX/FA TAB PO SCH (08:11)
[2018-08-31] MEDS: APIXABAN 5 MG TABLET PO SCH ×2 (08:18→20:36)
--- NOTE | 2018-08-31 12:10 | PN ---
Date/Time of Note Date/Time of Note DATE: 08/31/18 TIME: 12:09 Assessment/Plan VTE Prophylaxis Risk score (from Nsg)>0 risk: 3 SCD applied (from Nsg): Yes Pharmacological prophylaxis: heparin Lines/Catheters IV Catheter Type (from Nrsg): Peripheral IV Urinary Cath still in place: No Assessment/Plan Hospital Course More comfortable appearing No distress Aox3 RRR Breathing comfortably Soft nt nd Ext: L foot with less erythema than prevoiusly, now localized to 2nd and 3rd toe. Warm but no rubor. No drainage. R foot now without erythema 67 yo male with PAD, DMII, and ESRD who presents with b/l foot pain - I suspect this is from vascular issue perhpas embolic event. S/p heparin drip and transitioned back to Eliquis - Given improvement with abx will continue for possible cellulitis as well x 7 days - Pain control - Dr Cifuentes from podiatry and Dr Barker from general surgery have been consulted DMII: - basal/bolus insulin ESRD: - HD per Dr Tobar Hyperkalemia - Treated in ED PAD: - Aspirin and statin Discharge plan to home following angiography Result Diagram: 08/30/18 0637 08/30/18 0637 Results 24hrs Laboratory Tests Test 08/30/18 13:14 08/30/18 13:18 08/30/18 14:26 08/30/18 18:30 Bedside Glucose 139 131 193 Activated 62.5 H Partial Thromboplast Time Test 08/30/18 19:04 08/30/18 20:30 08/31/18 08:07 Activated 24.0 Partial Thromboplast Time Bedside Glucose 147 138 Subjective 24 Hr Interval Summary Free Text/Dictation Doing well Toes less painful and inflamed Aware of plan for angiography tomorrow Exam/Review of Systems Exam Vitals Vital Signs Date Temp Pulse Resp B/P (MAP) Pulse Ox O2 O2 Flow FiO2 Time Delivery Rate 08/31/18 97.7 55 18 134/70 96 Room Air 11:45 (91) 08/28/18 2 15:53 Intake and Output 08/30/18 08/30/18 08/31/18 1515:00 23:00 07:00 IntakeIntake Total 1050 ml 200 ml OutputOutput Total 3100 ml BalanceBalance -3100 ml 1050 ml 200 ml Results Results 24hrs Laboratory Tests Test 08/30/18 13:14 08/30/18 13:18 08/30/18 14:26 08/30/18 18:30 Bedside Glucose 139 131 193 Activated 62.5 H Partial Thromboplast Time Test 08/30/18 19:04 08/30/18 20:30 08/31/18 08:07 Activated 24.0 Partial Thromboplast Time Bedside Glucose 147 138 Medications Medication Current Medications Furosemide (Lasix) 160 mg BID PO Last administered on 08/31/18at 08:11; Admin Dose 160 MG; Start 08/28/18 at 21:00 Multivit/Ca Carb/ B Cmplx/FA/Prenat (Isabel-Brenda) 1 tab DAILY PO Last administered on 08/31/18at 08:11; Admin Dose 1 TAB; Start 08/29/18 at 09:00 Sevelamer Carbonate (Renvela) 0.8 gm WITH MEALS PO Last administered on 08/31/18at 08:10; Admin Dose 0.8 GM; Start 08/28/18 at 18:00 Insulin Aspart (Novolog Insulin Pen) NOVOLOG *MILD* ALGORITHM WITH MEALS BEDTIME SC Last administered on 08/30/18at 18:42; Admin Dose 2 UNIT; Start 08/28/18 at 18:00 Miscellaneous Information 1 ea NOTE XX ; Start 08/28/18 at 18:30 Glucose (Glutose) 15 gm Q15M PRN PO DECREASED GLUCOSE; Start 08/28/18 at 18:30 Glucose (Glutose) 22.5 gm Q15M PRN PO DECREASED GLUCOSE; Start 08/28/18 at 18:30 Dextrose (D50w Syringe) 25 ml Q15M PRN IV DECREASED GLUCOSE; Start 08/28/18 at 18:30 Dextrose (D50w Syringe) 50 ml Q15M PRN IV DECREASED GLUCOSE; Start 08/28/18 at 18:30 Glucagon (Glucagen) 1 mg Q15M PRN IM DECREASED GLUCOSE; Start 08/28/18 at 18:30 Glucose (Glutose) 15 gm Q15M PRN BUCCAL DECREASED GLUCOSE; Start 08/28/18 at 18:30 Vancomycin HCl (Vanco Iv Per Pharmacy) VANCOMYCIN PER PHARMACY PER PROTOCOL XX ; Start 08/28/18 at 18:30 IV Flush (NS 3 ml) 3 ml PER PROTOCOL IV ; Start 08/28/18 at 18:30 Acetaminophen/ Hydrocodone Bitart ([place] (5/325)) 2 tab Q6H PRN PO .SEVERE PAIN 7-10 Last administered on 08/31/18 05:08; Admin Dose 2 TAB; Start 08/28/18 at 18:30 Hydromorphone HCl (Dilaudid) 0.5 mg Q4H PRN IV .SEVERE PAIN 7-10; Start 08/28/18 at 18:30 Albumin Human 100 ml @ 100 mls/hr WITH DIALYSIS PRN IV SBP <90 DURING DIALYSIS Last administered on 08/29/18 10:50; Admin Dose 100 MLS/HR; Start 08/28/18 at 22:30 Sodium Chloride (NS) -To prime the dialy... DIRECTED FOR HD PRN IV HD; Start 08/28/18 at 22:30 Metolazone (Zaroxolyn) 10 mg BID PO Last administered on 08/31/18 08:11; Admin Dose 10 MG; Start 08/28/18 at 23:00 Clopidogrel Bisulfate (plaVIX) 75 mg DAILY PO Last administered on 08/31/18 08:11; Admin Dose 75 MG; Start 08/29/18 at 09:00 Insulin Aspart (Novolog Insulin Pen) 8 unit WITH MEALS SC Last administered on 08/31/18 08:39; Admin Dose 8 UNIT; Start 08/29/18 at 11:50 Insulin Glargine (Lantus) 20 units DAILY@2000 SC Last administered on 08/30/18 20:43; Admin Dose 20 UNITS; Start 08/29/18 at 20:00 Atorvastatin Calcium (Lipitor) 40 mg HS PO Last administered on 08/30/18 20:32; Admin Dose 40 MG; Start 08/29/18 at 21:00 Apixaban (Eliquis) 5 mg BID PO Last administered on 08/31/18 08:18; Admin Dose 5 MG; Start 08/30/18 at 21:00 PAUL LINDER MD Aug 31, 2018 12:10
--- NOTE | 2018-08-31 12:49 | PN ---
Date/Time of Note Date/Time of Note DATE: 08/31/18 TIME: 12:49 Assessment/Plan Lines/Catheters IV Catheter Type (from Nrs): Peripheral IV Pierre in Place (from Nrs): No Assessment/Plan Chief Complaint/Hosp Course -LLE edema and redness improving. -Continue with antibiotics for 10 days -CTA of the abd/pelvis with runoff demonstrated flow to the ankle although there are stenosis identified in bilateral LE's with infrainguinal disease. 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 Information provided -Recommend using 17gauge needle for the fistula for now. He has cephalic arch stenosis and small caliber vein -Transition Heparin gtt to Eliquis. History of Afib/DVT -Started Plavix in addition to anticoagulation. -Cleared from vascular and for patient to followup in Office this week Subjective 24 Hr Interval Summary Constitutional: no complaints Exam/Review of Systems Vital Signs Vitals Vital Signs Date Temp Pulse Resp B/P (MAP) Pulse Ox O2 O2 Flow FiO2 Time Delivery Rate 09/01/18 98.1 52 18 111/44 97 04:00 (66) 08/31/18 Room Air 15:25 08/28/18 2 15:53 Intake and Output 08/31/18 08/31/18 09/01/18 1515:00 23:00 07:00 IntakeIntake Total 800 ml BalanceBalance 800 ml Exam Free Text/Dictation GENERAL: Alert and oriented x3, PULMONARY: Coarse breath sounds bilaterally, some crackles at the bases. CARDIOVASCULAR: S1, S2 present, irregular. ABDOMEN: Soft, nontender, nondistended. Bowel sounds positive. Large truncal obesity. EXTREMITIES: Lower extremities: -Right lower extremity palpable femoral pulse, nonpalpable pedal pulse. Motor and sensory intact. Cap refill 3 to 4 seconds. Presence of varicose veins and large leg. -Left lower extremity palpable femoral pulse, nonpalpable pedal pulse. Motor and sensory intact. Cap refill 3 to 4 seconds. Infectious ulcer of the third toe improving, erythema resolving. first, second and third toe bluish discoloration slightly improved. Nontender. Varicose veins and edema of the left lower extremity with presence of mild lipodermatosclerosis. Results Result Diagram: 08/30/18 0637 08/30/18 0637 VANIA PEREYRA MD Aug 31, 2018 12:49
--- NOTE | 2018-08-31 13:27 | CONS ---
Assessment/Plan Assessment/Plan Hospital Course (Demo Recall) Right 2nd/3rd toe lesion: In my opinion with recent left leg intervention and no antiplatelets and stoppage of Eliquis, likely vascular occlusion and embolization and less likely cellulitis. Warmer now but small area of gangrene. No intervention per Dr. Roberto Hicks: Kaylee 1. Not on BB. No pauses or high grade block. Chronic per pt CAD: prior PCI. 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 Toe pain improved. Exam/Review of Systems Vital Signs Vitals Vital Signs Date Temp Pulse Resp B/P (MAP) Pulse Ox O2 O2 Flow FiO2 Time Delivery Rate 08/31/18 53 12:00 08/31/18 97.7 18 134/70 96 Room Air 11:45 (91) 08/28/18 2 15:53 Intake and Output 08/30/18 08/30/18 08/31/18 1515:00 23:00 07:00 IntakeIntake Total 1050 ml 200 ml OutputOutput Total 3100 ml BalanceBalance -3100 ml 1050 ml 200 ml Exam Constitutional: alert, oriented Psych: no complaints, nl mood/affect Neck: No jvd Respiratory: diminished breath sounds; No clear to auscultation Cardiovascular: systolic murmur; No regular rate and rhythm, No edema Gastrointestinal: soft, non-tender; No distended Extremities: other (left third toe partial gangrene, warm now ) 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: nl mental status, nl speech Labs Result Diagram: 08/30/18 0637 08/30/18 0637 Results 24hrs Laboratory Tests Test 08/30/18 14:26 08/30/18 18:30 08/30/18 19:04 08/30/18 20:30 Bedside Glucose 131 193 147 Activated 24.0 Partial Thromboplast Time Test 08/31/18 08:07 Bedside Glucose 138 Medications Medications Current Medications Furosemide (Lasix) 160 mg BID PO Last administered on 08/31/18 08:11; Admin Dose 160 MG; Start 08/28/18 at 21:00 Multivit/Ca Carb/ B Cmplx/FA/Prenat (Isabel-Brenda) 1 tab DAILY PO Last administered on 08/31/18at 08:11; Admin Dose 1 TAB; Start 08/29/18 at 09:00 Sevelamer Carbonate (Renvela) 0.8 gm WITH MEALS PO Last administered on 08/31/18 08:10; Admin Dose 0.8 GM; Start 08/28/18 at 18:00 Insulin Aspart (Novolog Insulin Pen) NOVOLOG *MILD* ALGORITHM WITH MEALS BEDTIME SC Last administered on 08/30/18at 18:42; Admin Dose 2 UNIT; Start 08/28/18 at 18:00 Miscellaneous Information 1 ea NOTE XX ; Start 08/28/18 at 18:30 Glucose (Glutose) 15 gm Q15M PRN PO DECREASED GLUCOSE; Start 08/28/18 at 18:30 Glucose (Glutose) 22.5 gm Q15M PRN PO DECREASED GLUCOSE; Start 08/28/18 at 18:30 Dextrose (D50w Syringe) 25 ml Q15M PRN IV DECREASED GLUCOSE; Start 08/28/18 at 18:30 Dextrose (D50w Syringe) 50 ml Q15M PRN IV DECREASED GLUCOSE; Start 08/28/18 at 18:30 Glucagon (Glucagen) 1 mg Q15M PRN IM DECREASED GLUCOSE; Start 08/28/18 at 18:30 Glucose (Glutose) 15 gm Q15M PRN BUCCAL DECREASED GLUCOSE; Start 08/28/18 at 18:30 Vancomycin HCl (Vanco Iv Per Pharmacy) VANCOMYCIN PER PHARMACY PER PROTOCOL XX ; Start 08/28/18 at 18:30 IV Flush (NS 3 ml) 3 ml PER PROTOCOL IV ; Start 08/28/18 at 18:30 Acetaminophen/ Hydrocodone Bitart ([place] (5/325)) 2 tab Q6H PRN PO .SEVERE PAIN 7-10 Last administered on 08/31/18at 05:08; Admin Dose 2 TAB; Start 08/28/18 at 18:30 Hydromorphone HCl (Dilaudid) 0.5 mg Q4H PRN IV .SEVERE PAIN 7-10; Start 08/28/18 at 18:30 Albumin Human 100 ml @ 100 mls/hr WITH DIALYSIS PRN IV SBP <90 DURING DIALYSIS Last administered on 08/29/18 10:50; Admin Dose 100 MLS/HR; Start 08/28/18 at 22:30 Sodium Chloride (NS) -To prime the dialy... DIRECTED FOR HD PRN IV HD; Start 08/28/18 at 22:30 Metolazone (Zaroxolyn) 10 mg BID PO Last administered on 08/31/18 08:11; Admin Dose 10 MG; Start 08/28/18 at 23:00 Clopidogrel Bisulfate (plaVIX) 75 mg DAILY PO Last administered on 08/31/18 08:11; Admin Dose 75 MG; Start 08/29/18 at 09:00 Insulin Aspart (Novolog Insulin Pen) 8 unit WITH MEALS SC Last administered on 08/31/18 08:39; Admin Dose 8 UNIT; Start 08/29/18 at 11:50 Insulin Glargine (Lantus) 20 units DAILY@2000 SC Last administered on 08/30/18 20:43; Admin Dose 20 UNITS; Start 08/29/18 at 20:00 Atorvastatin Calcium (Lipitor) 40 mg HS PO Last administered on 08/30/18 20:32; Admin Dose 40 MG; Start 08/29/18 at 21:00 Apixaban (Eliquis) 5 mg BID PO Last administered on 08/31/18 08:18; Admin Dose 5 MG; Start 08/30/18 at 21:00 LAVON SEE Aug 31, 2018 13:26
[2018-08-31] MEDS: ATORVASTATIN 40 MG TAB PO SCH (20:36)
[2018-08-31] MEDS: INSULIN GLARGINE [LANTus] (100 UNITS/ML) SYG SC SCH (20:42)
[2018-09-01] VITALS (22 sets, daily range): BP systolic 90–142; BP diastolic 39–74; PULSE 40–89; RESP 18
[2018-09-01] MEDS: INSULIN ASPART [NOVOLOG] 3 ML PEN SC SCH ×6 (07:57→17:17)
[2018-09-01] MEDS: SEVELAMER CARBONATE 0.8 GM PKT PO SCH ×3 (07:58→17:22)
--- NOTE | 2018-09-01 08:00 | PN ---
Date/Time of Note Date/Time of Note DATE: 09/01/18 TIME: 07:59 Assessment/Plan Lines/Catheters IV Catheter Type (from Nrs): Peripheral IV Pierre in Place (from Nrs): No Assessment/Plan Chief Complaint/Hosp Course -LLE edema and redness improving. -Continue with antibiotics for 10 days -CTA of the abd/pelvis with runoff demonstrated flow to the ankle although there are stenosis identified in bilateral LE's with infrainguinal disease. 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 Information provided -Recommend using 17gauge needle for the fistula for now. He has cephalic arch stenosis and small caliber vein -Transition Heparin gtt to Eliquis. History of Afib/DVT -Started Plavix in addition to anticoagulation. -Cleared from vascular and for patient to followup in Office this week -Apply betadine paint to third toe daily Subjective 24 Hr Interval Summary Constitutional: no complaints Exam/Review of Systems Vital Signs Vitals Vital Signs Date Temp Pulse Resp B/P (MAP) Pulse Ox O2 O2 Flow FiO2 Time Delivery Rate 09/01/18 98.1 52 18 111/44 97 04:00 (66) 08/31/18 Room Air 15:25 08/28/18 2 15:53 Intake and Output 08/31/18 08/31/18 09/01/18 1515:00 23:00 07:00 IntakeIntake Total 800 ml BalanceBalance 800 ml Exam Free Text/Dictation GENERAL: Alert and oriented x3, PULMONARY: Coarse breath sounds bilaterally, some crackles at the bases. CARDIOVASCULAR: S1, S2 present, irregular. ABDOMEN: Soft, nontender, nondistended. Bowel sounds positive. Large truncal obesity. EXTREMITIES: Lower extremities: -Right lower extremity palpable femoral pulse, nonpalpable pedal pulse. Motor and sensory intact. Cap refill 3 to 4 seconds. Presence of varicose veins and large leg. -Left lower extremity palpable femoral pulse, nonpalpable pedal pulse. Motor and sensory intact. Cap refill 3 to 4 seconds. Infectious ulcer of the third toe improving, erythema resolving. first, second and third toe bluish dis coloration slightly improved. Nontender. Varicose veins and edema of the left lower extremity with presence of mild lipodermatosclerosis. Results Result Diagram: 08/30/18 0637 08/30/18 0637 VANIA PEREYRA MD Sep 01, 2018 08:00
[2018-09-01] MEDS: APIXABAN 5 MG TABLET PO SCH (08:33)
[2018-09-01] MEDS: CLOPIDOGREL 75 MG TAB PO SCH (08:33)
[2018-09-01] MEDS: MULTIVIT/CA CARB/B CMPLX/FA TAB PO SCH (08:33)
[2018-09-01] MEDS: METOLAZONE 10 MG TAB PO SCH (09:00)
[2018-09-01] MEDS: FUROSEMIDE 40 MG TAB PO SCH (09:00)
--- NOTE | 2018-09-01 09:12 | CONS ---
Assessment/Plan Assessment/Plan Hospital Course (Demo Recall) Left 3rd toe gangrene: In my opinion with recent left leg intervention and no antiplatelets and stoppage of Eliquis, likely vascular occlusion and embolization and less likely cellulitis. Warmer now but small area of gangrene. No intervention per Dr. Roberto Hicks: Kaylee 1. Not on BB. No pauses or high grade block. Chronic per pt CAD: prior PCI. 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 Consultation Date/Type/Reason Admit Date/Time Aug 28, 2018 at 17:26 Initial Consult Date 08/29/18 Type of Consult Cardiology Requesting Provider: VANIA PEREYRA MD Date/Time of Note DATE: 09/01/18 TIME: 09:09 24 HR Interval Summary Free Text/Dictation No events. No complaints except for toe pain Exam/Review of Systems Vital Signs Vitals Vital Signs Date Temp Pulse Resp B/P (MAP) Pulse Ox O2 O2 Flow FiO2 Time Delivery Rate 09/01/18 81 09:02 09/01/18 98.1 18 120/39 93 Room Air 07:58 (66) Non Rebreather 08/28/18 2 15:53 Intake and Output 08/31/18 08/31/18 09/01/18 1515:00 23:00 07:00 IntakeIntake Total 800 ml BalanceBalance 800 ml Exam Constitutional: alert, oriented Psych: no complaints, nl mood/affect Head: normocephalic, atraumatic Neck: supple; No jvd Respiratory: diminished breath sounds; No clear to auscultation Cardiovascular: No regular rate and rhythm, No edema Gastrointestinal: soft, non-tender; No distended Extremities: other (left third toe gangrene) 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: nl mental status, nl speech Labs Result Diagram: 08/30/18 0637 08/30/18 0637 Results 24hrs Laboratory Tests Test 08/31/18 13:24 08/31/18 17:50 08/31/18 20:34 09/01/18 05:51 Bedside Glucose 176 226 H 245 H Random Vancomycin Level 23.0 Test 09/01/18 07:54 Bedside Glucose 205 Medications Medications Current Medications Furosemide (Lasix) 160 mg BID PO Last administered on 08/31/18 20:36; Admin Dose 160 MG; Start 08/28/18 at 21:00 Multivit/Ca Carb/ B Cmplx/FA/Prenat (Isabel-Brenda) 1 tab DAILY PO Last administered on 09/01/18 08:33; Admin Dose 1 TAB; Start 08/29/18 at 09:00 Sevelamer Carbonate (Renvela) 0.8 gm WITH MEALS PO Last administered on 09/01/18 07:58; Admin Dose 0.8 GM; Start 08/28/18 at 18:00 Insulin Aspart (Novolog Insulin Pen) NOVOLOG *MILD* ALGORITHM WITH MEALS BEDTIME SC Last administered on 09/01/18 07:58; Admin Dose 2 UNIT; Start 08/28/18 at 18:00 Miscellaneous Information 1 ea NOTE XX ; Start 08/28/18 at 18:30 Glucose (Glutose) 15 gm Q15M PRN PO DECREASED GLUCOSE; Start 08/28/18 at 18:30 Glucose (Glutose) 22.5 gm Q15M PRN PO DECREASED GLUCOSE; Start 08/28/18 at 18:30 Dextrose (D50w Syringe) 25 ml Q15M PRN IV DECREASED GLUCOSE; Start 08/28/18 at 18:30 Dextrose (D50w Syringe) 50 ml Q15M PRN IV DECREASED GLUCOSE; Start 08/28/18 at 18:30 Glucagon (Glucagen) 1 mg Q15M PRN IM DECREASED GLUCOSE; Start 08/28/18 at 18:30 Glucose (Glutose) 15 gm Q15M PRN BUCCAL DECREASED GLUCOSE; Start 08/28/18 at 18:30 Vancomycin HCl (Vanco Iv Per Pharmacy) VANCOMYCIN PER PHARMACY PER PROTOCOL XX ; Start 08/28/18 at 18:30 IV Flush (NS 3 ml) 3 ml PER PROTOCOL IV ; Start 08/28/18 at 18:30 Acetaminophen/ Hydrocodone Bitart ([place] (5/325)) 2 tab Q6H PRN PO .SEVERE PAIN 7-10 Last administered on 08/31/18 05:08; Admin Dose 2 TAB; Start 08/28/18 at 18:30 Hydromorphone HCl (Dilaudid) 0.5 mg Q4H PRN IV .SEVERE PAIN 7-10; Start 08/28/18 at 18:30 Albumin Human 100 ml @ 100 mls/hr WITH DIALYSIS PRN IV SBP <90 DURING DIALYSIS Last administered on 08/29/18 10:50; Admin Dose 100 MLS/HR; Start 08/28/18 at 22:30 Sodium Chloride (NS) -To prime the dialy... DIRECTED FOR HD PRN IV HD; Start 08/28/18 at 22:30 Metolazone (Zaroxolyn) 10 mg BID PO Last administered on 08/31/18 20:37; Admin Dose 10 MG; Start 08/28/18 at 23:00 Clopidogrel Bisulfate (plaVIX) 75 mg DAILY PO Last administered on 09/01/18 08:33; Admin Dose 75 MG; Start 08/29/18 at 09:00 Insulin Aspart (Novolog Insulin Pen) 8 unit WITH MEALS SC Last administered on 09/01/18 07:57; Admin Dose 8 UNIT; Start 08/29/18 at 11:50 Insulin Glargine (Lantus) 20 units DAILY@2000 SC Last administered on 08/31/18 20:42; Admin Dose 20 UNITS; Start 08/29/18 at 20:00 Atorvastatin Calcium (Lipitor) 40 mg HS PO Last administered on 08/31/18 20:36; Admin Dose 40 MG; Start 08/29/18 at 21:00 Apixaban (Eliquis) 5 mg BID PO Last administered on 09/01/18 08:33; Admin Dose 5 MG; Start 08/30/18 at 21:00 LAVON SEE Sep 01, 2018 09:12
[2018-09-01] MEDS ORDERED: CLOP75TA28 PO (15:26)
--- NOTE | 2018-09-01 15:27 | PDOCDIS ---
Discharge Instructions CONDITION [id number] Patient Condition: [id number] Good HOME CARE INSTRUCTIONS: [id number] Special Diet: Jsttr7y Diabetic, renal ACTIVITY: [id number] Activity Restrictions: [id number] No Restrictions FOLLOW UP/APPOINTMENTS Follow-up Plan FOLLOW UP WITH YOUR PRIMARY CARE PHYSICIAN IN 1-2 WEEKS LORI VINES Sep 01, 2018 15:27
--- NOTE | 2018-09-01 16:11 | CONS ---
Assessment/Plan Assessment/Plan Assessment/Plan (Daily) 1. Acute hyperkalemia 2. acute Fluid overload 3. ESRD on HD MWF Schedule 4. LE feet cellultis vs obstructive PAD 5. h/O HTN ' 6. H/o HL Plan: plan for HD today, after HD pt can go home follow up at [facility] [place] rfor scheduled HD on MWF follow up [facility] vascular surgery Dr. jaramillo as outpatient Consultation Date/Type/Reason Admit Date/Time Aug 28, 2018 at 17:26 Initial Consult Date 08/29/18 Type of Consult NEPHROLOGY Requesting Provider: VANIA PEREYRA MD Date/Time of Note DATE: 09/01/18 TIME: 16:10 Exam/Review of Systems Exam Vitals Vital Signs Date Temp Pulse Resp B/P (MAP) Pulse Ox O2 O2 Flow FiO2 Time Delivery Rate 09/01/18 59 13:18 09/01/18 98.7 18 130/60 92 Room Air 11:49 (83) 08/28/18 2 15:53 Intake and Output 08/31/18 08/31/18 09/01/18 1515:00 23:00 07:00 IntakeIntake Total 800 ml BalanceBalance 800 ml Results Result Diagram: 08/30/18 0637 08/30/18 0637 Results 24hrs Laboratory Tests Test 08/31/18 17:50 08/31/18 20:34 09/01/18 05:51 09/01/18 07:54 Bedside Glucose 226 H 245 H 205 Random Vancomycin Level 23.0 Test 09/01/18 11:49 Bedside Glucose 204 Medications Medication Current Medications Furosemide (Lasix) 160 mg BID PO Last administered on 08/31/18at 20:36; Admin Do se 160 MG; Start 08/28/18 at 21:00 Multivit/Ca Carb/ B Cmplx/FA/Prenat (Isabel-Brenda) 1 tab DAILY PO Last administered on 09/01/18 08:33; Admin Dose 1 TAB; Start 08/29/18 at 09:00 Sevelamer Carbonate (Renvela) 0.8 gm WITH MEALS PO Last administered on 09/01/18at 11:52; Admin Dose 0.8 GM; Start 08/28/18 at 18:00 Insulin Aspart (Novolog Insulin Pen) NOVOLOG *MILD* ALGORITHM WITH MEALS BEDTIME SC Last administered on 09/01/18at 11:55; Admin Dose 2 UNIT; Start 08/28/18 at 18:00 Miscellaneous Information 1 ea NOTE XX ; Start 08/28/18 at 18:30 Glucose (Glutose) 15 gm Q15M PRN PO DECREASED GLUCOSE; Start 08/28/18 at 18:30 Glucose (Glutose) 22.5 gm Q15M PRN PO DECREASED GLUCOSE; Start 08/28/18 at 18:30 Dextrose (D50w Syringe) 25 ml Q15M PRN IV DECREASED GLUCOSE; Start 08/28/18 at 18:30 Dextrose (D50w Syringe) 50 ml Q15M PRN IV DECREASED GLUCOSE; Start 08/28/18 at 18:30 Glucagon (Glucagen) 1 mg Q15M PRN IM DECREASED GLUCOSE; Start 08/28/18 at 18:30 Glucose (Glutose) 15 gm Q15M PRN BUCCAL DECREASED GLUCOSE; Start 08/28/18 at 18:30 Vancomycin HCl (Vanco Iv Per Pharmacy) VANCOMYCIN PER PHARMACY PER PROTOCOL XX ; Start 08/28/18 at 18:30 IV Flush (NS 3 ml) 3 ml PER PROTOCOL IV ; Start 08/28/18 at 18:30 Acetaminophen/ Hydrocodone Bitart ([place] (5/325)) 2 tab Q6H PRN PO .SEVERE PAIN 7-10 Last administered on 08/31/18at 05:08; Admin Dose 2 TAB; Start 08/28/18 at 18:30 Hydromorphone HCl (Dilaudid) 0.5 mg Q4H PRN IV .SEVERE PAIN 7-10; Start 08/28/18 at 18:30 Albumin Human 100 ml @ 100 mls/hr WITH DIALYSIS PRN IV SBP <90 DURING DIALYSIS Last administered on 08/29/18at 10:50; Admin Dose 100 MLS/HR; Start 08/28/18 at 22:30 Sodium Chloride (NS) -To prime the dialy... DIRECTED FOR HD PRN IV HD; Start 08/28/18 at 22:30 Metolazone (Zaroxolyn) 10 mg BID PO Last administered on 08/31/18at 20:37; Admin Dose 10 MG; Start 08/28/18 at 23:00 Clopidogrel Bisulfate (plaVIX) 75 mg DAILY PO Last administered on 09/01/18 08:33; Admin Dose 75 MG; Start 08/29/18 at 09:00 Insulin Aspart (Novolog Insulin Pen) 8 unit WITH MEALS SC Last administered on 09/01/18 11:54; Admin Dose 8 UNIT; Start 08/29/18 at 11:50 Insulin Glargine (Lantus) 20 units DAILY@2000 SC Last administered on 08/31/18 20:42; Admin Dose 20 UNITS; Start 08/29/18 at 20:00 Atorvastatin Calcium (Lipitor) 40 mg HS PO Last administered on 08/31/18 20:36; Admin Dose 40 MG; Start 08/29/18 at 21:00 Apixaban (Eliquis) 5 mg BID PO Last administered on 09/01/18 08:33; Admin Dose 5 MG; Start 08/30/18 at 21:00 RAQUEL MCDOWELL MD Sep 01, 2018 16:11
--- NOTE | 2018-09-01 17:42 | DS ---
Date/Time of Note Date/Time of Note DATE: 09/01/18 TIME: 17:36 Discharge Summary Admission/Discharge Info Admit Date/Time Aug 28, 2018 at 17:26 Discharge Date/Time September 01, 2018 Discharge Diagnosis 67 yo male with PAD, DMII, and ESRD who presents with left third toe gangrene -Etiology is vascular and perhaps embolic event. S/p heparin drip and transitioned back to Eliquis -Vascular and podiatry consultations appreciated, abdominal angiogram shows significant PAD -Resume home Eliquis and have added Plavix -No interventions at this time DMII: -Continue home regimen ESRD: - HD per Dr Tobar Hyperkalemia - Treated in ED PAD: - Aspirin and statin Patient Condition: Good Hospital Course Patient is a 67 yo male with PAD, DMII, and ESRD who presents with left third toe gangrene secondary to severe PAD. Patient is status post heparin drip and transitioned back to Eliquis. Patient was seen by vascular and podiatry, abdominal angiogram showed significant PAD. No surgical intervention was recommended at this time the patient was stable for DC. On the day of discharge patient's vitals, labs and physical exam are stable, patient to follow-up with podiatry and vascular as an outpatient. Home Meds Active Scripts Clopidogrel Bisulfate (Clopidogrel) 75 Mg Tablet, 75 MG PO DAILY, #60 TAB Prov:LORI VINES 09/01/18 Reported Medications Ezetimibe* (Zetia*) 10 Mg Tablet, 10 MG PO DAILY, TAB 08/29/18 Insulin Lispro (Humalog Kwikpen U-100) 100 Unit/1 Ml Insuln.pen, 0 SQ SLIDING SCALE, EA 08/28/18 Insulin Glargine* (Lantus*) 100 Unit/Ml Soln, 0 SC QHS, #1 VIAL 45-52 UNITS 08/28/18 Metolazone* (Metolazone*) 5 Mg Tablet, 10 MG PO BID, TAB 08/28/18 Multivit/Ca Carb/B Cmplx/Fa* (Isabel-Brenda*) 1 Tab Tab, 1 TAB PO DAILY, TAB 08/28/18 Furosemide* (Furosemide*) 80 Mg Tablet, 160 MG PO BID, #60 TAB 08/28/18 Folic Acid* (Folic Acid*) 1 Mg Tablet, 1 MG PO DAILY, TAB 08/28/18 Apixaban* (Eliquis*) 5 Mg Tablet, 5 MG PO BID, TAB 08/28/18 Sevelamer Carbonate* (Renvela*) 800 Mg Tablet, 0.8 GM PO WITH MEALS, TAB 08/28/18 Discontinued Reported Medications Ezetimibe* (Zetia*) 10 Mg Tablet, 10 MG PO HS, TAB 11/05/17 Multivit/Ca Carb/B Cmplx/Fa* (Isabel-Brenda*) 1 Tab Tab, 1 TAB PO DAILY, TAB 11/05/17 Amlodipine Besylate* (Amlodipine Besylate*) 5 Mg Tablet, 5 MG PO DAILY, #30 TAB 11/05/17 Insulin Lispro (Humalog) 100 Unit/1 Ml Cartridge, 0-90 UNIT SQ AC MEALS, EA 11/05/17 Folic Acid* (Folic Acid*) 1 Mg Tablet, 1 MG PO DAILY, TAB 07/02/17 Icosapent Ethyl (VASCEPA) 1 Gm Capsule, 2 GM PO BID, CAP 07/02/17 Insulin Glargine* (Lantus*) 100 Unit/Ml Soln, 46 UNIT SC DAILY, #1 VIAL 07/02/17 Follow-up Plan FOLLOW UP WITH YOUR PRIMARY CARE PHYSICIAN IN 1-2 WEEKS Primary Care Provider Not On Staff Doctor Time spent on discharge: > 30 minutes OLRI VINES Sep 01, 2018 17:42
== END 2018-09-01 20:24 | disposition home or self-care (01) | DRG 299 ==
LOC: E/R 13:14 → TEL 17:26
PROVIDERS: ADMIT Internal Medicine; ATTEND Internal Medicine
PROC: 5A1D70Z Performance of Urinary Filtration, Intermittent, Less than 6 Hours Per Day (ICD-10-PCS; principal; 2018-08-29)
DX: E11.52 Type 2 diabetes mellitus with diabetic peripheral angiopathy with gangrene (principal); N18.6 End stage renal disease; L03.116 Cellulitis of left lower limb; I12.0 Hypertensive chronic kidney disease with stage 5 chronic kidney disease or end stage renal disease; I87.1 Compression of vein; I82.402 Acute embolism and thrombosis of unspecified deep veins of left lower extremity; E11.22 Type 2 diabetes mellitus with diabetic chronic kidney disease; Z99.2 Dependence on renal dialysis; E87.5 Hyperkalemia; E87.70 Fluid overload, unspecified; E78.5 Hyperlipidemia, unspecified; R23.4 Changes in skin texture; E11.42 Type 2 diabetes mellitus with diabetic polyneuropathy; E66.01 Morbid (severe) obesity due to excess calories; Z68.35 Body mass index [BMI] 35.0-35.9, adult; I25.10 Atherosclerotic heart disease of native coronary artery without angina pectoris; E11.621 Type 2 diabetes mellitus with foot ulcer; L97.529 Non-pressure chronic ulcer of other part of left foot with unspecified severity; E11.51 Type 2 diabetes mellitus with diabetic peripheral angiopathy without gangrene; I48.91 Unspecified atrial fibrillation; I44.1 Atrioventricular block, second degree; I70.213 Atherosclerosis of native arteries of extremities with intermittent claudication, bilateral legs; E11.628 Type 2 diabetes mellitus with other skin complications; I83.893 Varicose veins of bilateral lower extremities with other complications; Z79.4 Long term (current) use of insulin; Z79.01 Long term (current) use of anticoagulants; Z98.61 Coronary angioplasty status
CPT/HCPCS: 36415; 71045; 75635; 80048; 80053; 80202; 82962; 83036; 83605; 84484; 84560; 85025; 85610; 85651; 85730; 86140; 86706; 87340; 90935; 93005; 93922; 93970; 96374; 96375; 97161; J0692; J1170; J1644; J1815; J2270; J2405; J3370; J7040; P9047; Q9967

== ENCOUNTER 2018-09-18 09:27 | Day surgery (SDC) | payer MEDICARE, BC ==
[~2018-09-18] VITALS: Ht 167.6 cm; Wt 100.6 kg
[~2018-09-18 09:27] MED LIST changes: -AMLO-145 PO; +APIX5TAB PO; +CLOP75TA28 PO; +FURO80TA3 PO; -ICOS1CAP PO; -INSU100C SQ; +INSU100I12 SQ; +METO5TAB65 PO; +SEVE800T7 PO
[2018-09-18 10:20] VITALS: Ht 167.6 cm; Wt 100.6 kg
[2018-09-18 10:39] VITALS: BP 129/60; PULSE 88; RESP 16
--- NOTE | 2018-09-18 11:29 | HPN ---
Date/Time of Note Date/Time of Note DATE: 09/18/18 TIME: 11:28 Interval H&P Admission Note Pt. seen H&P reviewed: No system changes VANIA PEREYRA MD Sep 18, 2018 11:29
--- NOTE | 2018-09-18 11:31 | PDOCDIS ---
Discharge Instructions DIAGNOSIS Discharge Diagnosis End-stage renal disease and cephalic vein stenosis CONDITION [id number] Patient Condition: [id number] Good HOME CARE INSTRUCTIONS: [id number] Special Diet: Rezmk3a Renal diet ACTIVITY: [id number] Activity Restrictions: [id number] Slowly Increase Activity Rest between Activity Avoid heavy lifting Do not Drive Do not operate Machinery Keep Limb Elevated Ebztp3Cu Bathing Restrictions: [id number] Sponge Bath FOLLOW UP/APPOINTMENTS Follow-up Plan Follow-up in 2 weeks, will remove suture in a week Continue with local wound care to the left third toe VANIA PEREYRA MD Sep 18, 2018 11:30
[2018-09-18] MEDS ORDERED: HEPARIN 1000 UNITS/NS (A-LINE) 1,000 ML ONE (11:37)
[2018-09-18] MEDS ORDERED: LIDOCAINE 1% (MDV) 20 ML INJ ONE (11:37)
[2018-09-18] MEDS ORDERED: FENTAnyl 50 MCG/ML VIAL ONE (11:37)
[2018-09-18] MEDS ORDERED: IODIXANOL LOCM 100 ML BTL ONE (11:37)
[2018-09-18] MEDS ORDERED: MIDAZOLAM 1 MG/ML 2 ML INJ ONE (11:37)
[2018-09-18] MEDS ORDERED: IODIXANOL LOCM 50 ML BTL ONE (12:29)
[2018-09-18] MEDS ORDERED: HEPARIN 1000 UNITS/ML 10 ML INJ ONE (12:32)
[2018-09-18 13:11] VITALS: BP 121/75; PULSE 60; RESP 16
[2018-09-18 13:25] VITALS: BP 130/58; PULSE 75; RESP 16
--- NOTE | 2018-09-18 13:41 | OPR ---
DATE OF OPERATION: 09/18/2018 SURGEON: Rod Mejia MD PREOPERATIVE DIAGNOSIS: End-stage renal disease and malfunctioning left upper extremity fistula. POSTOPERATIVE DIAGNOSIS: End-stage renal disease and malfunctioning left upper extremity fistula. ANESTHESIA: Local with moderate sedation. ESTIMATED BLOOD LOSS: Minimal. COMPLICATIONS: None. HEPARIN: 750 units intravenously. CONTRAST: As recorded. ACCESS: Left upper extremity fistula 6-Moldovan sheath. CLOSURE: Manual compression 3-0 nylon suture. SEDATION: Under physician supervision, moderate sedation was administered intravenously under contin uous monitoring by the interventional team and attending physician. Pulse oximeter, heart rate, bloo d pressures were continuously monitored by interventional surgeon. The physician spent time was 60 m inutes of [id number] sedation time with the patient. INDICATIONS: This is a 67-year-old gentleman with history of bilateral lower extremity atheroscleros is and left lower extremity gangrene, end-stage renal disease who has had function of his left upper extremity fistula developing. The patient in the past has had areas of severe new intimal hyperplasi a which required a fistulogram with the cephalic vein stenting secondary to severe stenosis that was adequate for some time. Unfortunately, the patient has developed poor function during his dialysis s essions via the left upper extremity fistula. Subsequently, based on these findings, the risk and be nefits were discussed with the patient and and they agreed to proceed understanding all that is involved. They were able to review the information back to me and show what it involved. Risks incl uding but not limited to bleeding, thrombosis, embolization, myocardial infarction, , stroke, de vice malfunction, infection, nephrotoxicity, limb loss. The patient has agreed to proceed. PROCEDURE: 1. Ultrasound-guided access of the left upper extremity fistula. 2. Introduction of catheter into the SVC. 3. SVC venogram. 4. Cephalic arch stenting using 6 x 37 mm balloon-mounted stent. 5. Proximal venoplasty of the cephalic vein using 6 x 20 mm high pressure balloon. DESCRIPTION OF PROCEDURE: The patient was brought into the angio suite and positioned in supine posi tion on the fluoroscopic table. Sedation was administered without any complications. Left upper ext remity was then shaved, prepped and draped in usual standard sterile fashion. Time out and appropria te sites were marked and confirmed. Local anesthesia was infiltrated in the region of the left upper extremity fistula. The fistula was then cannulated with a microcatheter needle under ultrasound paige dance and a guidewire was then advanced into the cephalic vein under fluoroscopic guidance. The need le was then removed and a microcatheter was placed. A multi-station left upper extremity fistulogram was performed which identified patient having severe stenosis in the cephalic arch, but also having recurrent re-instent stenosis in the proximal aspect of the cephalic vein. At this point, decision made to intervene as the areas of severe stenosis, therefore, a microcatheter was exchanged over a Be ntson wire to a 6-Moldovan sheath. Through the sheath was then flushed with heparinized saline solutio n. The patient was given intravenous heparin. At this point, using a guiding catheter, we went ahea d and used our Glidewire to cross the area of severe stenosis and cephalic arch. Further adequate wi re access control, we went ahead and introduced a catheter into the SVC. A central venogram was perf ormed which identified patent SVC and then we were able to use our guiding catheter to guide our stif f wire towards the distal aspect of the IVC. Once that was adequate, went ahead and exchanged our gu iding catheter and used a balloon mounted stent in the cephalic arch. We used a balloon mounted sten t in this segment, as the patient has had history of previous very small veins and the concern for a possible ruptured vein is there. Therefore, balloon mounted stent was chosen; a 6 x 37 mm balloon mo unted stent. This was deployed successfully. The patient still had some residual waste. This was r e-intervened now with another balloon angioplasty of that segment with a better outcome. Upon comple tion angiogram, adequate flow across this area was identified. Our attention was then turned to the proximal aspect of the cephalic vein where there was in-stent stenosis. We went ahead and used a hig h pressure balloon; 6 x 20 mm and we performed a venoplasty in that segment. That area was much impr charanjit post-intervention. At this point, no further intervention was needed. We will plan to have the patient follow up with us in a week after he undergoes his dialysis sessions. Catheter, sheath and wires were all removed. Manual compression was held. Using a 3-0 nylon suture, our access site was closed. The patient tolerated the procedure well and was taken to the postanesthesia care unit in st able condition. All instruments, catheters, needles, wires were correct x2. Dictated By: ROD SANTIAGO/FREDY Conf#: [id number] DID#: [id number]
== END 2018-09-18 14:15 | disposition home or self-care (01) ==
LOC: SDS 09:27 → CCL 09:27
PROVIDERS: ATTEND Student in an Organized Health Care Education/Training Program
DX: I12.0 Hypertensive chronic kidney disease with stage 5 chronic kidney disease or end stage renal disease (principal); N18.6 End stage renal disease; E11.9 Type 2 diabetes mellitus without complications
CPT/HCPCS: 36903; 80048; 82962; 85025; 85610; 85730; C1875; C1887; C1894; J1644; J2250; J3010; Q9967

== ENCOUNTER 2018-09-24 06:31 | Inpatient (IN) | payer MEDICARE, BC ==
[2018-09-24] VITALS (10 sets, daily range): BP systolic 91–122; BP diastolic 53–60; PULSE 61–83; RESP 18–20; Ht 167.6 cm; Wt 84.0 kg
[~2018-09-24] VITALS: Ht 167.6 cm; Wt 84.0 kg
--- NOTE | 2018-09-24 07:03 | ERD ---
ER Documentation Chief Complaint Chief Complaint WEAKNESS HPI 67-year-old male history of diabetes, hypertension, hyperlipidemia, end-stage renal disease on dialysis, peripheral vascular disease, anticoagulated on Eliquis and cold agglutinin disease presents to the ED via rescue ambulance for evaluation of 3-day history of worsening, generalized weakness and lightheadedness. Denies headache, visual changes, focal weakness or numbness. Denies chest pain, palpitations or shortness of breath. Nausea but no abdominal pain, vomiting, diarrhea or constipation. Black tarry stools for months but no hematemesis or hematochezia. Chronic lower extremity swelling but no pain. [place] as though he was getting the flu and symptoms started but no cough, body aches, odynophagia, rhinorrhea, fevers or chills. ROS All systems reviewed and are negative except as per history of present illness. Medications Home Meds Reported Medications Clopidogrel Bisulfate (Clopidogrel) 75 Mg Tablet, 75 MG PO DAILY, #30 TAB 09/24/18 Ezetimibe* (Zetia*) 10 Mg Tablet, 10 MG PO DAILY, TAB 08/29/18 Insulin Lispro (Humalog Kwikpen U-100) 100 Unit/1 Ml Insuln.pen, 0 SQ SLIDING SCALE, EA 08/28/18 Insulin Glargine* (Lantus*) 100 Unit/Ml Soln, 0 SC QHS, #1 VIAL 45-52 UNITS 08/28/18 Metolazone* (Metolazone*) 5 Mg Tablet, 10 MG PO BID, TAB 08/28/18 Multivit/Ca Carb/B Cmplx/Fa* (Isabel-Brenda*) 1 Tab Tab, 1 TAB PO DAILY, TAB 08/28/18 Furosemide* (Furosemide*) 80 Mg Tablet, 160 MG PO BID, #60 TAB 08/28/18 Folic Acid* (Folic Acid*) 1 Mg Tablet, 1 MG PO DAILY, TAB 08/28/18 Apixaban* (Eliquis*) 5 Mg Tablet, 5 MG PO BID, TAB 08/28/18 Sevelamer Carbonate* (Renvela*) 800 Mg Tablet, 0.8 GM PO WITH MEALS, TAB 08/28/18 Discontinued Scripts Clopidogrel Bisulfate (Clopidogrel) 75 Mg Tablet, 75 MG PO DAILY, #60 TAB Prov:LORI VINES 09/01/18 Allergies Allergies: Coded Allergies: No Known Allergies (Verified Allergy, Mild, 09/24/18) PMhx/Soc Reviewed in chart. As per HPI. History of Surgery: Yes (lt fistula, magalis eye sx) Anesthesia Reaction: No Hx 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 Disorder: No Hx Respiratory Disorders: No Hx Cardiac Disorders: Yes (htn) Hx Psychiatric Problems: No Hx Miscellaneous Medical Probl: Yes (RENAL FAILURE,ON DIALYIS) Hx Alcohol Use: No Hx Substance Use: No Hx Tobacco Use: No Smoking Status: Never smoker FmHx Reviewed in chart. No stroke or cancer Physical Exam Vitals Temp: 98.6. Blood pressure: 119/57. Pulse: 94. Respirations: 18. O2 saturation 95% on room air Physical Exam Const: Alert, ill-appearing, moderate distress. Head: Atraumatic Eyes: Conjunctiva pale. Pupils equal reactive to light, extraocular movements are intact. No nystagmus. ENT: Normal External Ears, Nose and Mouth. Pharynx is clear without erythema or exudate. Neck: Full range of motion. No JVD. No lymphadenopathy or tenderness. No meningismus. Resp: Breath sounds are equal bilaterally with rare crackles at the bases but no wheezes or rhonchi. Cardio: Regular rate and rhythm, no murmurs Abd: Soft, obese, non tender, non distended. Normal bowel sounds. No rebound or guarding. No masses or abnormal pulsations. Rectal exam: Normal tone. Black, melanotic stool. Skin: No petechiae or rashes Back: No midline or flank tenderness Ext: AV shunt left upper arm. 2+ bilateral lower extremity edema. Left foot: Purplish discoloration toes 1 through 3 with erythema and dry gangrene of the third toe. Dorsalis pedis pulse 2+ bilaterally. Neur: Awake and alert Psych: Normal Mood and Affect Result Diagram: 10/01/18 0448 10/01/18 0448 Results 24 hrs Laboratory Tests Test 09/24/18 06:52 09/24/18 07:02 09/24/18 07:15 09/24/18 07:23 White Blood Count 13.0 10^3/ul Red Blood Count 1.96 10^6/ul Hemoglobin 5.8 g/dl Hematocrit 18.7 % Mean Corpuscular 95.4 fl Volume Mean Corpuscular 29.6 pg Hemoglobin Mean Corpuscular 31.0 g/dl Hemoglobin Concent Red Cell Distribution 16.0 % Width Platelet Count 214 10^3/UL Mean Platelet Volume 12.1 fl Immature Granulocytes 1.100 % % Neutrophils % % Segmented Neutrophils 72 % % (Manual) Band Neutrophils % 3 % (Manual) Lymphocytes % % Lymphocytes % (Manual) 16 % Monocytes % % Monocytes % (Manual) 6 % Eosinophils % % Eosinophils % (Manual) 1 % Basophils % % Basophils % (Manual) 2 % Nucleated Red Blood 0.2 /100WBC Cells % Immature Granulocytes 0.140 10^3/ul # Neutrophils # 10^3/ul Neutrophils # (Manual) 9.4 10^3/ul Band Neutrophils # 0.3 10^3/ul Lymphocytes (Manual) 2.0 10^3/ul Lymphocytes # 10^3/ul Monocytes # 10^3/ul Monocytes # (Manual) 0.7 10^3/ul Eosinophils # 10^3/ul Basophils # 10^3/ul Basophils # (Manual) 0.2 10^3/ul Nucleated Red Blood 10^3/ul Cells # Platelet Estimate NORMAL Polychromasia 1+ Hypochromasia 2+ Anisocytosis 1+ Microcytosis 1+ Sodium Level 136 mmol/L Potassium Level 5.7 mmol/L Chloride Level 91 mmol/L Carbon Dioxide Level 30 mmol/L Anion Gap 15 Blood Urea Nitrogen 111 mg/dl Creatinine 8.62 mg/dl Est Glomerular Filtrat 6 mL/min Rate mL/min Glucose Level 295 mg/dl Calcium Level 8.6 mg/dl Troponin I 0.051 ng/ml Bedside Glucose 323 mg/dL Stool Occult Blood POSITIVE Carcinoembryonic 3.3 ng/ml Antigen Test 09/24/18 07:35 POC Venous Lactate 2.4 mmol/L Current Medications Medications Dose Sig/Becky Start Time Status Last (Trade) Ordered Route PRN Stop Time Admin Dose Reason Admin 40 mg ONCE STAT 09/24/18 DC 09/24/18 Pantoprazole IV 07:21 09/24/18 07:41 (Protonix 07:23 Iv) Cefepime HCl 50 ml @ ONCE STAT 09/24/18 DC 09/24/18 100 mls/hr IVPB 07:36 09/24/18 07:41 08:05 Vancomycin 250 ml @ ONCE ONCE 09/24/18 DC 09/24/18 HCl 125 mls/hr IVPB 08:00 09/24/18 08:28 09:59 Albuterol 15 mg ONCE STAT 09/24/18 DC 09/24/18 (Proventil INH 07:44 09/24/18 12:20 0.5% (Neb)) 07:46 Insulin 5 unit ONCE STAT 09/24/18 DC 09/24/18 Human IVP 07:44 09/24/18 08:53 Regular 07:46 (Humulin R) Dextrose ONCE PRN 09/24/18 DC (D50w IV DECREASED 08:00 10/01/18 Syringe) GLUCOSE 08:41 Procedures/MDM DOCUMENTS REVIEWED: ED nurse, prior ED, prior records. EKG: Time: 06:59. Sinus rhythm. No ectopy. ND interval 242 ms consistent with first-degree AV block. Right bundle branch block. No acute ST elevation or depression. My Interpretation IMAGING: Chest AP portable: Cardiomegaly, costophrenic angles are clear. No effusions or infiltrates. Calcified aorta. My interpretation. CONSENT FOR BLOOD/BLOOD PRODUCTS TRANSFUSION: Risks and benefits including but not limited to bacterial sepsis, viral transmission of HIV, hepatitis, malaria, variant Creutzfeldt-Isak disease, hemolytic reactions, anaphylactic reactions, fluid overload and transfusion related acute lung injury explained and understood by and patient. Informed consent obtained. 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 CBC reveals severe anemia with hemoglobin 5.1 hematocrit 18.7. Chemistry consistent with end-stage renal disease with BUN 111 creatinine 8.62 and mild hyperkalemia 0f potassium 5.7. Hyperglycemia but no anion gap metabolic acidosis or DKA. EKG negative for acute ischemic changes. Criteria for systemic inflammatory response syndrome include tachycardia and leukocytosis. At 07:35 Lactate elevated at 2.4 mmol/L and this is likely secondary to renal failure but a potential infectious source is left toe gangrene. Broad-spectrum antibiotics are initiated after cultures. IV fluids are not given due to the risk of volume overload in this patient with end-stage renal disease on dialysis who will be getting blood transfusion. No hypotension , lactate greater than 4.0 mmol/L or criteria for septic shock. Patient presents severe anemia secondary to upper GI bleed treated with intravenous Protonix and blood transfusion is pending. No hypotension or indication for emergent reversal of anticoagulation. Hyperkalemia treated with nebulized albuterol and D50/insulin per patient will require urgent dialysis. Admit to telemetry for further evaluation and management. CRITICAL CARE TIME: Due to the high probability of eminent, clinically significant hemodynamic and cardiovascular deterioration, this patient with severe anemia secondary to upper GI bleed and hyperkalemia required multiple, frequent reevaluations of vital signs and response to therapy including obtaining consent for and initiating emergent blood transfusion. Additional critical care time was spent in obtaining supplemental history from family, interpretation of relevant clinical data as well as arranging for admission and ongoing care. TOTAL CRITICAL CARE TIME: 35 minutes not including other separately reportable procedures. PATIENT CARE TRANSITIONED: Time: [], [ ]. Counseled [patient and family] regarding diagnosis, diagnostic results and plan for admission. Departure Diagnosis: Primary Impression: Acute weakness Additional Impressions: Severe anemia Acute upper GI bleed Hyperkalemia Anticoagulated End stage renal disease on dialysis Systemic inflammatory response syndrome Elevated lactic acid level Gangrene of toe of left foot Condition: Critical GUERO ARAYA MD September 24, 2018 07:03
[2018-09-24] MEDS ORDERED: PANTOPRAZOLE 40 MG INJ IV STA (07:21)
[2018-09-24] MEDS ORDERED: CEFEPIME 2GM/50 ML (PMX) 50 ML IVPB STA (07:36)
[2018-09-24] MEDS ORDERED: ALBUTEROL 0.5% (NEB) 2.5 MG/0.5 ML AMP INH STA (07:44)
[2018-09-24] MEDS ORDERED: INSULIN REGULAR, HUMAN 100 UNIT/1 ML 3ML VIAL IVP STA (07:44)
[2018-09-24] MEDS ORDERED: VANCOMYCIN 1 GM (PMX) 250 ML IVPB ONE (08:00)
[2018-09-24] MEDS ORDERED: DEXTROSE 50% 50 ML SYRINGE IV PRN ×3 (08:00→13:30)
[2018-09-24] MEDS ORDERED: ACETAMINOPHEN 325 MG TAB PO PRN (08:30)
[2018-09-24] MEDS ORDERED: ONDANSETRON 4 MG INJ IV PRN (08:30)
[2018-09-24] MEDS ORDERED: CLOP75TA27 PO (09:05)
[2018-09-24] MEDS: PANTOPRAZOLE IV 80 MG in SOD CHLORIDE 0.9% 100 ML IV SCH (12:30)
[2018-09-24] MEDS ORDERED: NACL 0.9% 3 ML SYG IV SCH (12:30)
[2018-09-24] MEDS ORDERED: GLUCOSE GEL 15 GRAM TUBE PO PRN ×2 (13:30)
[2018-09-24] MEDS ORDERED: GLUCAGON 1 MG INJ IM PRN (13:30)
[2018-09-24] MEDS ORDERED: GLUCOSE GEL 15 GRAM TUBE BUCCAL PRN (13:30)
--- NOTE | 2018-09-24 13:44 | HP ---
Date/Time of Note Date/Time of Note DATE: 09/24/18 TIME: 12:37 Assessment/Plan VTE Prophylaxis SCD contraindicated: other (EDEMA/WOUND) Pharmacological prophylaxis: NA/contraindicated Pharm contraindication: bleeding Lines/Catheters IV [facility]ter Type (from [facility]): Saline Lock Assessment/Plan Hospital Course SUBJECTIVE: Seen and evaluated patient in ER room 1. Having mild shortness of breath, receiving breathing treatments. OBJECTIVE: Vital signs-see below PHYSICAL EXAM: Constitutional: Adequately built,not in acute distress. HEENT: Head atraumatic and normocephalic. Eyes: Extraocular muscles intact. Anicteric sclerae. Pupils equal bilaterally, reactive to light. NECK: Supple without lymph node. CHEST: Slight wheezing on right upper lobe. HEART: S1, S2. Regular rate and rhythm. ABDOMEN: Soft/non tender with no rebound tenderness. Bowel sounds were present. EXTREMITIES:BLE 3+edema w/no palpable DP pulses. 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 NEUROLOGIC: Alert and oriented x3. No focal deficit. No sensory deficit. PSYCHOSOCIAL: No signs of depression. INTEGUMENTARY: left foot 3rd toe chronic ulcer. no oozing. Pale skin. ASSESSMENT AND PLAN:67 yo with numerous comorbidities including dyslipidemia,dmII,ESRD/HD and severe PVD who is also anticoagulated on Eliquis/Plavix,here with worsening malaise, found to have severe anemia/positive stool OB... Severe symptomatic blood loss anemia -Serial H&H, transfuse to keep hemoglobin greater than 8.0. -no atc/antiplatelets for now Positive stool OB, rule out upper versus lower GI bleed -GI consult for EGD/colonoscopy evaluation -Protonix gtt -Hold anticoagulants/antiplatelets -Add CEA ESRD, hemodialysis MWF -Nephrology to manage Hyperkalemia with ESRD -Management per nephrology DMII w/ extreme hyperglycemia -A1C -Basal/bolus insulin Leukocytosis, likely reactive -Monitor. Bilateral lower extremity atherosclerosis with left third toe gangrene -Chronic issue and patient has been following up with vascular as outpatient. s/o angio 08/12. He was also recently treated with full course of antimicrobials. -Wound care Obesity with BMI 36.3 -Weight reduction advised. DVT prophylaxis: Chemical prophylaxis is contraindicated. SCDs contraindicated secondary to edema. PUD prophylaxis: Protonix Rest of the management depend on hospital course. Approximately 60 m spent on this history and physical. Patient was seen in collaboration with Dr. Beltran. Result Diagram: 09/24/18 0652 09/24/18 0652 Results 24hrs Laboratory Tests Test 09/24/18 06:52 09/24/18 07:02 09/24/18 07:15 09/24/18 07:35 White Blood Count 13.0 #H Red Blood Count 1.96 #L Hemoglobin 5.8 #*L Hematocrit 18.7 #L Mean Corpuscular Volume 95.4 Mean Corpuscular 29.6 Hemoglobin Mean Corpuscular 31.0 L Hemoglobin Concent Red Cell Distribution 16.0 H Width Platelet Count 214 Mean Platelet Volume 12.1 H Immature Granulocytes % 1.100 H Neutrophils % Segmented Neutrophils 72 % (Manual) Band Neutrophils % 3 (Manual) Lymphocytes % Lymphocytes % (Manual) 16 Monocytes % Monocytes % (Manual) 6 Eosinophils % Eosinophils % (Manual) 1 Basophils % Basophils % (Manual) 2 Nucleated Red Blood 0.2 H Cells % Immature Granulocytes # 0.140 H Neutrophils # Neutrophils # (Manual) 9.4 H Band Neutrophils # 0.3 Lymphocytes (Manual) 2.0 Lymphocytes # Monocytes # Monocytes # (Manual) 0.7 Eosinophils # Basophils # Basophils # (Manual) 0.2 H Nucleated Red Blood Cells # Platelet Estimate NORMAL Polychromasia 1+ Hypochromasia 2+ Anisocytosis 1+ Microcytosis 1+ Sodium Level 136 Potassium Level 5.7 H Chloride Level 91 L Carbon Dioxide Level 30 Anion Gap 15 H Blood Urea Nitrogen 111 H Creatinine 8.62 H Est Glomerular Filtrat 6 L Rate mL/min Glucose Level 295 H Calcium Level 8.6 Troponin I 0.051 Bedside Glucose 323 H Stool Occult Blood POSITIVE POC Venous Lactate 2.4 *H Test 09/24/18 08:15 09/24/18 08:52 09/24/18 09:33 09/24/18 10:49 Prothrombin Time 15.7 H Prothrombin Time Ratio 1.2 INR International 1.24 Normalized Ratio Activated 33.2 Partial Thromboplast Time Bedside Glucose 347 H 342 H Lactic Acid Level 1.8 HPI/ROS Admit Date/Time Admit Date/Time Hx of Present Illness This is a 67-year-old male with numerous comorbidities including type 2 diabetes, end-stage renal disease on hemodialysis M, W, F, dyslipidemia, severe PVD of bilateral lower extremities with chronic left third toe ulcer with cellulitis who is also anticoagulated on Eliquis and Plavix presented to the emergency room with 3-day duration of malaise, breathing difficulties, and generalized weakness. Patient denied nausea, vomiting, diarrhea, constipation, hematemesis, hemoptysis, melena, hematochezia, unintentional weight loss, decreased appetite or others. Patient also denied chest pain, palpitation, fever, chills, loss of consciousness, dizziness, numbness, tingling, headache, or other constitutional symptoms. In the emergency room, patient was noted with a hemoglobin 5.8, hematocrit 18.7, white count 13,000, potassium 5.7, BUN 111, creatinine 8.62, and glucose 295. Stool OB positive. Vital signs stable. Patient was given a dose of Protonix 40 mg IV with 2 units blood transfusion ordered. ROS A 12 point review of system was assessed and is negative other than what is mentioned in the HPI. PMH/Family/Social Past Medical History See HPI Medications Current Medications Dextrose (D50w Syringe) ONCE PRN IV DECREASED GLUCOSE; Start 09/24/18 at 08:00 Ondansetron HCl (Zofran Inj) 4 mg ER BRIDGE PRN IV NAUSEA/VOMITING; Start 09/24/18 at 08:30; Stop 09/25/18 at 08:29 Acetaminophen (Tylenol Tab) 650 mg ER BRIDGE PRN PO .MILD PAIN 1-3 OR TEMP; Start 09/24/18 at 08:30; Stop 09/25/18 at 08:29 EZETIMIBE (Zetia) 10 mg DAILY PO ; Start 09/25/18 at 09:00; Status UNV Folic Acid (Folic Acid) 1 mg DAILY PO ; Start 09/25/18 at 09:00; Status UNV Multivit/Ca Carb/ B Cmplx/FA/Prenat (Isabel-Brenda) 1 tab DAILY PO ; Start 09/25/18 at 09:00; Status UNV Sevelamer Carbonate (Renvela) 0.8 gm WITH MEALS PO ; Start 09/24/18 at 18:00; Status UNV Coded Allergies: No Known Allergies (Verified Allergy, Mild, 09/24/18) Past Surgical History See HPI Past Surgical Hx: other Family History Significant Family History: no pertinent family hx Social History Denied history of alcohol, smoking or illicit drug use. Smoking Status: Never smoker Exam/Review of Systems Vital Signs Vitals Vital Signs Date Temp Pulse Resp B/P (MAP) Pulse Ox O2 O2 Flow FiO2 Time Delivery Rate 09/24/18 70 20 97 Nasal 2.0 12:20 Cannula 09/24/18 115/61 10:30 (79) 09/24/18 98.6 06:41 DENZEL MICHAELS NP September 24, 2018 12:47
--- NOTE | 2018-09-24 14:12 | CONS ---
Assessment/Plan Assessment/Plan Hospital Course (Demo Recall) Assessment: Severe acute on chronic anemia Melena ESRD on HD DM Bilateral lower extremity atherosclerosis with left lower extremity third toe ulcer Hx of colonoscopy 05/12- suboptimal prep- no gross lesions- rec to f/u 6 months to 1 year Plan: Monitor H/H transfuse for hgb less than 7.5 Clear liquid diet EGD/colonoscopy tomorrow Patient seen in collaboration with Dr. Cardoza CC: GERMÁN CARDOZA MD ; Consultation Date/Type/Reason Admit Date/Time Date of Consultation: September 24, 2018 Type of Consult GI Reason for Consultation Anemia Date/Time of Note DATE: 09/24/18 TIME: 14:11 Hx of Present Illness This is a 67 year old male with PMH of ESRD on HD, anemia, borderline HTN, DM, Bilateral lower extremity atherosclerosis with left lower extremity third toe ulcer, who presented to the ED with c/o weakness, Work- up in the noted severe anemia. GI has been consulted for further evaluation. Patient states for the last week he has been having "black stools", he denies NSAID use, but currently takes Eliquis for LE atherosclerosis. Patient states he has never had an EGD or colonoscopy, however after speaking to the daughter and researching past medical records, he did have a colonoscopy 05/12- showing sub-optimal prep, no gross lesions, with recommendations to repeat colonoscopy in 6 months to 1 year. He is currently receiving 1 of 2 units of blood. I discussed with patients/spouse/ and patient's daughter plan for EGD and repeat colonoscopy. I reviewed risks/benefits of both procedure and sedation. All verbalized understanding and are agreeable to procedures. Review of Systems: A 12 system, review was conducted and is negative except as noted in the HPI or here. Past Medical History Home Meds Reported Medications Clopidogrel Bisulfate (Clopidogrel) 75 Mg Tablet, 75 MG PO DAILY, #30 TAB 09/24/18 Ezetimibe* (Zetia*) 10 Mg Tablet, 10 MG PO DAILY, TAB 08/29/18 Insulin Lispro (Humalog Kwikpen U-100) 100 Unit/1 Ml Insuln.pen, 0 SQ SLIDING SCALE, EA 08/28/18 Insulin Glargine* (Lantus*) 100 Unit/Ml Soln, 0 SC QHS, #1 VIAL 45-52 UNITS 08/28/18 Metolazone* (Metolazone*) 5 Mg Tablet, 10 MG PO BID, TAB 08/28/18 Multivit/Ca Carb/B Cmplx/Fa* (Isabel-Brenda*) 1 Tab Tab, 1 TAB PO DAILY, TAB 08/28/18 Furosemide* (Furosemide*) 80 Mg Tablet, 160 MG PO BID, #60 TAB 08/28/18 Folic Acid* (Folic Acid*) 1 Mg Tablet, 1 MG PO DAILY, TAB 08/28/18 Apixaban* (Eliquis*) 5 Mg Tablet, 5 MG PO BID, TAB 08/28/18 Sevelamer Carbonate* (Renvela*) 800 Mg Tablet, 0.8 GM PO WITH MEALS, TAB 08/28/18 Discontinued Scripts Clopidogrel Bisulfate (Clopidogrel) 75 Mg Tablet, 75 MG PO DAILY, #60 TAB Prov:LORI VINES 09/01/18 Medications Current Medications Dextrose (D50w Syringe) ONCE PRN IV DECREASED GLUCOSE; Start 09/24/18 at 08:00 Ondansetron HCl (Zofran Inj) 4 mg ER BRIDGE PRN IV NAUSEA/VOMITING; Start 09/24/18 at 08:30; Stop 09/25/18 at 08:29 EZETIMIBE (Zetia) 10 mg DAILY PO ; Start 09/25/18 at 09:00 Folic Acid (Folic Acid) 1 mg DAILY PO ; Start 09/25/18 at 09:00 Multivit/Ca Carb/ B Cmplx/FA/Prenat (Isabel-Brenda) 1 tab DAILY PO ; Start 09/25/18 at 09:00 Sevelamer Carbonate (Renvela) 0.8 gm WITH MEALS PO ; Start 09/24/18 at 18:00 IV Flush (NS 3 ml) 3 ml PER PROTOCOL IV ; Start 09/24/18 at 12:30 Ondansetron HCl (Zofran Tab) 4 mg Q6H PRN PO NAUSEA/VOMITING; Start 09/24/18 at 12:30 Acetaminophen (Tylenol Tab) 650 mg Q6H PRN PO .PAIN 1-3 OR TEMP; Start 09/24/18 at 12:30 Diagnostic Test (Pha) (Accu-Chek) 1 ea 02 XX ; Start 09/25/18 at 02:00 Insulin Glargine (Lantus) 31 units DAILY@0800 SC ; Start 09/24/18 at 12:30 Insulin Aspart (Novolog Insulin Pen) NOVOLOG *MILD* ALGORI... Q4 SC ; Start 09/24/18 at 13:00 Pantoprazole 80 mg/Sodium Chloride 100 ml @ 10 mls/hr Q10H IV ; Start 09/24/18 at 12:30 Miscellaneous Information 1 ea NOTE XX ; Start 09/24/18 at 13:30 Glucose (Glutose) 15 gm Q15M PRN PO DECREASED GLUCOSE; Start 09/24/18 at 13:30 Glucose (Glutose) 22.5 gm Q15M PRN PO DECREASED GLUCOSE; Start 09/24/18 at 13:30 Dextrose (D50w Syringe) 25 ml Q15M PRN IV DECREASED GLUCOSE; Start 09/24/18 at 13:30 Dextrose (D50w Syringe) 50 ml Q15M PRN IV DECREASED GLUCOSE; Start 09/24/18 at 13:30 Glucagon (Glucagen) 1 mg Q15M PRN IM DECREASED GLUCOSE; Start 09/24/18 at 13:30 Glucose (Glutose) 15 gm Q15M PRN BUCCAL DECREASED GLUCOSE; Start 09/24/18 at 13:30 Allergies: Coded Allergies: No Known Allergies (Verified Allergy, Mild, 09/24/18) Past Surgical History Past Surgical Hx: other Social History Smoking Status: Never smoker Exam/Review of Systems Exam Vitals Vital Signs Date Temp Pulse Resp B/P (MAP) Pulse Ox O2 O2 Flow FiO2 Time Delivery Rate 09/24/18 70 20 97 Nasal 2.0 12:20 Cannula 09/24/18 115/61 10:30 (79) 09/24/18 98.6 06:41 Constitutional: alert, oriented, other (pale) Psych: no complaints Head: normocephalic, atraumatic Neck: supple, non-tender Respiratory: clear to auscultation Cardiovascular: regular rate and rhythm Gastrointestinal: soft, bowel sounds Extremities: other (discoloration to x2 toes left foot) Skin: other (AV fistula BRIGHT) Results Result Diagram: 09/24/18 0652 09/24/18 0652 Results 24hrs Laboratory Tests Test 09/24/18 06:52 09/24/18 07:02 09/24/18 07:15 09/24/18 07:35 White Blood Count 13.0 #H Red Blood Count 1.96 #L Hemoglobin 5.8 #*L Hematocrit 18.7 #L Mean Corpuscular Volume 95.4 Mean Corpuscular 29.6 Hemoglobin Mean Corpuscular 31.0 L Hemoglobin Concent Red Cell Distribution 16.0 H Width Platelet Count 214 Mean Platelet Volume 12.1 H Immature Granulocytes % 1.100 H Neutrophils % Segmented Neutrophils 72 % (Manual) Band Neutrophils % 3 (Manual) Lymphocytes % Lymphocytes % (Manual) 16 Monocytes % Monocytes % (Manual) 6 Eosinophils % Eosinophils % (Manual) 1 Basophils % Basophils % (Manual) 2 Nucleated Red Blood 0.2 H Cells % Immature Granulocytes # 0.140 H Neutrophils # Neutrophils # (Manual) 9.4 H Band Neutrophils # 0.3 Lymphocytes (Manual) 2.0 Lymphocytes # Monocytes # Monocytes # (Manual) 0.7 Eosinophils # Basophils # Basophils # (Manual) 0.2 H Nucleated Red Blood Cells # Platelet Estimate NORMAL Polychromasia 1+ Hypochromasia 2+ Anisocytosis 1+ Microcytosis 1+ Sodium Level 136 Potassium Level 5.7 H Chloride Level 91 L Carbon Dioxide Level 30 Anion Gap 15 H Blood Urea Nitrogen 111 H Creatinine 8.62 H Est Glomerular Filtrat 6 L Rate mL/min Glucose Level 295 H Calcium Level 8.6 Troponin I 0.051 Bedside Glucose 323 H Stool Occult Blood POSITIVE POC Venous Lactate 2.4 *H Test 09/24/18 08:15 09/24/18 08:52 09/24/18 09:33 09/24/18 10:49 Prothrombin Time 15.7 H Prothrombin Time Ratio 1.2 INR International 1.24 Normalized Ratio Activated 33.2 Partial Thromboplast Time Bedside Glucose 347 H 342 H Lactic Acid Level 1.8 Medications Medication Current Medications Dextrose (D50w Syringe) ONCE PRN IV DECREASED GLUCOSE; Start 09/24/18 at 08:00 Ondansetron HCl (Zofran Inj) 4 mg ER BRIDGE PRN IV NAUSEA/VOMITING; Start 09/24/18 at 08:30; Stop 09/25/18 at 08:29 EZETIMIBE (Zetia) 10 mg DAILY PO ; Start 09/25/18 at 09:00 Folic Acid (Folic Acid) 1 mg DAILY PO ; Start 09/25/18 at 09:00 Multivit/Ca Carb/ B Cmplx/FA/Prenat (Isabel-Brenda) 1 tab DAILY PO ; Start 09/25/18 at 09:00 Sevelamer Carbonate (Renvela) 0.8 gm WITH MEALS PO ; Start 09/24/18 at 18:00 IV Flush (NS 3 ml) 3 ml PER PROTOCOL IV ; Start 09/24/18 at 12:30 Ondansetron HCl (Zofran Tab) 4 mg Q6H PRN PO NAUSEA/VOMITING; Start 09/24/18 at 12:30 Acetaminophen (Tylenol Tab) 650 mg Q6H PRN PO .PAIN 1-3 OR TEMP; Start 09/24/18 at 12:30 Diagnostic Test (Pha) (Accu-Chek) 1 ea 02 XX ; Start 09/25/18 at 02:00 Insulin Glargine (Lantus) 31 units DAILY@0800 SC ; Start 09/24/18 at 12:30 Insulin Aspart (Novolog Insulin Pen) NOVOLOG *MILD* ALGORI... Q4 SC ; Start 09/24/18 at 13:00 Pantoprazole 80 mg/Sodium Chloride 100 ml @ 10 mls/hr Q10H IV ; Start 09/24/18 at 12:30 Miscellaneous Information 1 ea NOTE XX ; Start 09/24/18 at 13:30 Glucose (Glutose) 15 gm Q15M PRN PO DECREASED GLUCOSE; Start 09/24/18 at 13:30 Glucose (Glutose) 22.5 gm Q15M PRN PO DECREASED GLUCOSE; Start 09/24/18 at 13:30 Dextrose (D50w Syringe) 25 ml Q15M PRN IV DECREASED GLUCOSE; Start 09/24/18 at 13:30 Dextrose (D50w Syringe) 50 ml Q15M PRN IV DECREASED GLUCOSE; Start 09/24/18 at 13:30 Glucagon (Glucagen) 1 mg Q15M PRN IM DECREASED GLUCOSE; Start 09/24/18 at 13:30 Glucose (Glutose) 15 gm Q15M PRN BUCCAL DECREASED GLUCOSE; Start 09/24/18 at 13:30 HERRERA WORRELL September 24, 2018 14:11
[2018-09-24] MEDS: INSULIN ASPART [NOVOLOG] 3 ML PEN SC SCH ×3 (15:00→21:41)
[2018-09-24] MEDS ORDERED: BISACODYL (EC) 5 MG TAB PO ONE (17:00)
[2018-09-24] MEDS: INSULIN GLARGINE [LANTus] (100 UNITS/ML) SYG SC SCH (17:49)
[2018-09-24] MEDS ORDERED: PEG/ELECTROLYTES 4L BTL PO ONE (18:00)
[2018-09-24] MEDS: SEVELAMER CARBONATE 0.8 GM PKT PO SCH (18:03)
--- NOTE | 2018-09-24 18:08 | CONS ---
Assessment/Plan Assessment/Plan Assessment/Plan (Daily) 1. acute Hyperkalemia due to GI bleeding 2.Acute fluid overload with Uremia BUN 111 on admission 3. acute GI bleeding causing acute blood loss anemia 4. Severe Anemia with Hb 5.8 on admission 5. H/O HTN 6. H/O peripherla vascular disease 7. ESRD on HD Plan: S/p Treatment for Hyperkalemia in ED Ok to have 2 U PRBC as soon as possible Plan for HD today with goal UF 2 to 2.5 L as tolerated -follow up at [facility] - [facility] or scheduled HD on MWF- Next HD will be on Saturday pt has been acute blood loss anemia, Prn transfusion, Thansk for consultation, I will continue follow up Consultation Date/Type/Reason Admit Date/Time 09/24/2018 Date of Consultation: September 24, 2018 Type of Consult NEPHROLOGY Reason for Consultation Hyperkalemia, ESRD on HD, URemia Requesting Provider: DENZEL MICHAELS NP Date/Time of Note DATE: 09/24/18 TIME: 18:07 Hx of Present Illness 67 yo with numerous comorbidities including dyslipidemia,dmII,ESRD/HD and severe PVD who is also anticoagulated on Eliquis/Plavix,here with worsening malaise, found to have severe anemia/positive stool OB. On labs he was noted to have hyperkalemia with K 5.7, BUN/Cr 111/8.62 on admission Renal has been consutled for emergent HD today Constitutional: poor po Eyes: no complaints ENT: no complaints Respiratory: cough, pleuritic pain, shortness of breath Cardiovascular: no complaints Gastrointestinal: no complaints Genitourinary: no complaints Musculoskeletal: back pain, bone/joint pain, neck pain Skin: no complaints Neurologic: no complaints Endocrine: no complaints Lymphatic: no complaints Psychological: no complaints Immunologic: no complaints Past Medical History Medical History: high cholesterol, hypertension, other (PVD, ESRD on HD ) Home Meds Reported Medications Clopidogrel Bisulfate (Clopidogrel) 75 Mg Tablet, 75 MG PO DAILY, #30 TAB 09/24/18 Ezetimibe* (Zetia*) 10 Mg Tablet, 10 MG PO DAILY, TAB 08/29/18 Insulin Lispro (Humalog Kwikpen U-100) 100 Unit/1 Ml Insuln.pen, 0 SQ SLIDING SCALE, EA 08/28/18 Insulin Glargine* (Lantus*) 100 Unit/Ml Soln, 0 SC QHS, #1 VIAL 45-52 UNITS 08/28/18 Metolazone* (Metolazone*) 5 Mg Tablet, 10 MG PO BID, TAB 08/28/18 Multivit/Ca Carb/B Cmplx/Fa* (Isabel-Brenda*) 1 Tab Tab, 1 TAB PO DAILY, TAB 08/28/18 Furosemide* (Furosemide*) 80 Mg Tablet, 160 MG PO BID, #60 TAB 08/28/18 Folic Acid* (Folic Acid*) 1 Mg Tablet, 1 MG PO DAILY, TAB 08/28/18 Apixaban* (Eliquis*) 5 Mg Tablet, 5 MG PO BID, TAB 08/28/18 Sevelamer Carbonate* (Renvela*) 800 Mg Tablet, 0.8 GM PO WITH MEALS, TAB 08/28/18 Discontinued Scripts Clopidogrel Bisulfate (Clopidogrel) 75 Mg Tablet, 75 MG PO DAILY, #60 TAB Prov:LORI VINES 09/01/18 Medications Current Medications Dextrose (D50w Syringe) ONCE PRN IV DECREASED GLUCOSE; Start 09/24/18 at 08:00 Ondansetron HCl (Zofran Inj) 4 mg ER BRIDGE PRN IV NAUSEA/VOMITING; Start 09/24/18 at 08:30; Stop 09/25/18 at 08:29 EZETIMIBE (Zetia) 10 mg DAILY PO ; Start 09/25/18 at 09:00 Folic Acid (Folic Acid) 1 mg DAILY PO ; Start 09/25/18 at 09:00 Multivit/Ca Carb/ B Cmplx/FA/Prenat (Isabel-Brenda) 1 tab DAILY PO ; Start 09/25/18 at 09:00 Sevelamer Carbonate (Renvela) 0.8 gm WITH MEALS PO ; Start 09/24/18 at 17:55 IV Flush (NS 3 ml) 3 ml PER PROTOCOL IV ; Start 09/24/18 at 12:30 Ondansetron HCl (Zofran Tab) 4 mg Q6H PRN PO NAUSEA/VOMITING; Start 09/24/18 at 12:30 Acetaminophen (Tylenol Tab) 650 mg Q6H PRN PO .PAIN 1-3 OR TEMP; Start 09/24/18 at 12:30 Diagnostic Test (Pha) (Accu-Chek) 1 ea 02 XX ; Start 09/25/18 at 02:00 Insulin Glargine (Lantus) 31 units DAILY@0800 SC ; Start 09/24/18 at 12:30 Insulin Aspart (Novolog Insulin Pen) NOVOLOG *MILD* ALGORI... Q4 SC ; Start 09/24 at 13:00 Pantoprazole 80 mg/Sodium Chloride 100 ml @ 10 mls/hr Q10H IV Last administered on 09/24/18at 12:30; Admin Dose 10 MLS/HR; Start 09/24/18 at 12:30 Miscellaneous Information 1 ea NOTE XX ; Start 09/24/18 at 13:30 Glucose (Glutose) 15 gm Q15M PRN PO DECREASED GLUCOSE; Start 09/24/18 at 13:30 Glucose (Glutose) 22.5 gm Q15M PRN PO DECREASED GLUCOSE; Start 09/24/18 at 13:30 Dextrose (D50w Syringe) 25 ml Q15M PRN IV DECREASED GLUCOSE; Start 09/24/18 at 13:30 Dextrose (D50w Syringe) 50 ml Q15M PRN IV DECREASED GLUCOSE; Start 09/24/18 at 13:30 Glucagon (Glucagen) 1 mg Q15M PRN IM DECREASED GLUCOSE; Start 09/24/18 at 13:30 Glucose (Glutose) 15 gm Q15M PRN BUCCAL DECREASED GLUCOSE; Start 09/24/18 at 13:30 Polyethylene Glycol/ Electrolytes (Golytely) 2,000 ml 2nd Dose (GI Prep) ONCE PO ; Start 09/25/18 at 06:00; Stop 09/25/18 at 06:01 Bisacodyl (Dulcolax) 10 mg 2nd Dose (GI Prep) ONCE PO ; Start 09/25/18 at 06:00; Stop 09/25/18 at 06:01 Allergies: Coded Allergies: No Known Allergies (Verified Allergy, Mild, 09/24/18) Past Surgical History Past Surgical Hx: other (AV fistula for HD access ) Family History Significant Family History: no pertinent family hx Social History Alcohol Use: none Smoking Status: Never smoker Exam/Review of Systems Exam Vitals Vital Signs Date Temp Pulse Resp B/P (MAP) Pulse Ox O2 O2 Flow FiO2 Time Delivery Rate 09/24/18 61 18:00 09/24/18 18 114/60 98 Nasal 4.0 16:45 (78) Cannula 09/24/18 98.6 06:41 Exam Constitutional: Alert, awake no acute distress HEENT: [place] , Pale conjunctive, pale mucous membrane NECK: Supple without lymph node. CHEST: Slight wheezing on right upper lobe. HEART: S1, S2. Regular rate and rhythm. ABDOMEN: Soft/non tender with no rebound tenderness. Bowel sounds were present. EXTREMITIES: 3+edema on both LE NEUROLOGIC: Alert and oriented x3. No focal deficit. No sensory deficit. PSYCHOSOCIAL: No signs of depression. INTEGUMENTARY: left foot 3rd toe chronic ulcer. no oozing. Pale skin. Results Result Diagram: 09/24/18 0652 09/24/18 0652 Results 24hrs Laboratory Tests Test 09/24/18 06:52 09/24/18 07:02 09/24/18 07:15 09/24/18 07:23 White Blood Count 13.0 #H Red Blood Count 1.96 #L Hemoglobin 5.8 #*L Hematocrit 18.7 #L Mean Corpuscular Volume 95.4 Mean Corpuscular 29.6 Hemoglobin Mean Corpuscular 31.0 L Hemoglobin Concent Red Cell Distribution 16.0 H Width Platelet Count 214 Mean Platelet Volume 12.1 H Immature Granulocytes % 1.100 H Neutrophils % Segmented Neutrophils 72 % (Manual) Band Neutrophils % 3 (Manual) Lymphocytes % Lymphocytes % (Manual) 16 Monocytes % Monocytes % (Manual) 6 Eosinophils % Eosinophils % (Manual) 1 Basophils % Basophils % (Manual) 2 Nucleated Red Blood 0.2 H Cells % Immature Granulocytes # 0.140 H Neutrophils # Neutrophils # (Manual) 9.4 H Band Neutrophils # 0.3 Lymphocytes (Manual) 2.0 Lymphocytes # Monocytes # Monocytes # (Manual) 0.7 Eosinophils # Basophils # Basophils # (Manual) 0.2 H Nucleated Red Blood Cells # Platelet Estimate NORMAL Polychromasia 1+ Hypochromasia 2+ Anisocytosis 1+ Microcytosis 1+ Sodium Level 136 Potassium Level 5.7 H Chloride Level 91 L Carbon Dioxide Level 30 Anion Gap 15 H Blood Urea Nitrogen 111 H Creatinine 8.62 H Est Glomerular Filtrat 6 L Rate mL/min Glucose Level 295 H Calcium Level 8.6 Troponin I 0.051 Bedside Glucose 323 H Stool Occult Blood POSITIVE Carcinoembryonic Antigen 3.3 Test 09/24/18 07:35 09/24/18 08:15 09/24/18 08:52 09/24/18 09:33 POC Venous Lactate 2.4 *H Prothrombin Time 15.7 H Prothrombin Time Ratio 1.2 INR International 1.24 Normalized Ratio Activated 33.2 Partial Thromboplast Time Bedside Glucose 347 H 342 H Test 09/24/18 10:49 09/24/18 18:01 Lactic Acid Level 1.8 Bedside Glucose 325 H Medications Medication Current Medications Dextrose (D50w Syringe) ONCE PRN IV DECREASED GLUCOSE; Start 09/24/18 at 08:00 Ondansetron HCl (Zofran Inj) 4 mg ER BRIDGE PRN IV NAUSEA/VOMITING; Start 09/24/18 at 08:30; Stop 09/25/18 at 08:29 EZETIMIBE (Zetia) 10 mg DAILY PO ; Start 09/25/18 at 09:00 Folic Acid (Folic Acid) 1 mg DAILY PO ; Start 09/25/18 at 09:00 Multivit/Ca Carb/ B Cmplx/FA/Prenat (Isabel-Brenda) 1 tab DAILY PO ; Start 09/25/18 at 09:00 Sevelamer Carbonate (Renvela) 0.8 gm WITH MEALS PO ; Start 09/24/18 at 17:55 IV Flush (NS 3 ml) 3 ml PER PROTOCOL IV ; Start 09/24/18 at 12:30 Ondansetron HCl (Zofran Tab) 4 mg Q6H PRN PO NAUSEA/VOMITING; Start 09/24/18 at 12:30 Acetaminophen (Tylenol Tab) 650 mg Q6H PRN PO .PAIN 1-3 OR TEMP; Start 09/24/18 at 12:30 Diagnostic Test (Pha) (Accu-Chek) 1 ea 02 XX ; Start 09/25/18 at 02:00 Insulin Glargine (Lantus) 31 units DAILY@0800 SC ; Start 09/24/18 at 12:30 Insulin Aspart (Novolog Insulin Pen) NOVOLOG *MILD* ALGORI... Q4 SC ; Start 09/24/18 at 13:00 Pantoprazole 80 mg/Sodium Chloride 100 ml @ 10 mls/hr Q10H IV Last administered on 09/24/18at 12:30; Admin Dose 10 MLS/HR; Start 09/24/18 at 12:30 Miscellaneous Information 1 ea NOTE XX ; Start 09/24/18 at 13:30 Glucose (Glutose) 15 gm Q15M PRN PO DECREASED GLUCOSE; Start 09/24/18 at 13:30 Glucose (Glutose) 22.5 gm Q15M PRN PO DECREASED GLUCOSE; Start 09/24/18 at 13:30 Dextrose (D50w Syringe) 25 ml Q15M PRN IV DECREASED GLUCOSE; Start 09/24/18 at 13:30 Dextrose (D50w Syringe) 50 ml Q15M PRN IV DECREASED GLUCOSE; Start 09/24/18 at 13:30 Glucagon (Glucagen) 1 mg Q15M PRN IM DECREASED GLUCOSE; Start 09/24/18 at 13:30 Glucose (Glutose) 15 gm Q15M PRN BUCCAL DECREASED GLUCOSE; Start 09/24/18 at 13:30 Polyethylene Glycol/ Electrolytes (Golytely) 2,000 ml 2nd Dose (GI Prep) ONCE PO ; Start 09/25/18 at 06:00; Stop 09/25/18 at 06:01 Bisacodyl (Dulcolax) 10 mg 2nd Dose (GI Prep) ONCE PO ; Start 09/25/18 at 06:00; Stop 09/25/18 at 06:01 RAQUEL MCDOWELL MD September 24, 2018 18:08
[2018-09-24] MEDS ORDERED: SODIUM CHLORIDE 0.9% 1L BAG IV PRN (18:30)
[2018-09-24] MEDS ORDERED: ALBUMIN HUMAN 25% 100 ML IV PRN (18:30)
--- NOTE | 2018-09-24 19:20 | RADRPT ---
Echocardiogram Report Patient Name: ESTELLE NORTONPatient ID: [id number] : 1950 (67y 10m)Study Date: 09/24/2018 12:57:21 PM Gender: MAccession #: [id number] Tech: Kera Lopez RDCS Location: [facility] Ref.Physician: DENZEL MICHAELS Height(Cm): BSA: Weight(Kg): Quality: Technically Difficult StudyAccount #: Procedures: Echocardiographic Report: Transthoracic echocardiogram with complete 2D, M-Mode, and doppler examination. Indications: Evaluate Left Ventricular function. Measurements: 2D/M Mode Doppler Measurement Value Normal Range Measurement Value Normal Range LVIDd 2D 6.0 [ 4.2 - 5.8 ] cm AV Peak Deni 2.0 [ 100.0 - 170.0 ] cm/sec LVIDs 2D 4.4 [ 2.5 - 4.0 ] cm AV Peak PG 16.0 [ 2.0 - 9.0 ] mmHg LVPWd 2D 1.2 [ 0.6 - 1.0 ] cm LVOT Peak Deni 1.1 [ 70.0 - 110.0 ] cm/sec IVSd 2D 1.0 [ 0.6 - 1.0 ] cm LVOT Peak PG 5.0 [ 2.0 - 6.0 ] mmHg AoR Diam 2D 2.9 [ 2.6 - 3.4 ] cm Lat E` Deni 0.1 [ 10.0 - 15.0 ] cm/sec EDV 2D 182.0 [ 62.0 - 150.0 ] ml TR Peak Deni 3.0 [ 100.0 - 280.0 ] cm/sec ESV 2D 89.1 [ 21.0 - 61.0 ] ml TR Peak PG 37.0 mmHg EF 2D 51.0 [ 52.0 - 72.0 ] percent RVSP 40.0 [ 10.0 - 36.0 ] mmHg LA Dimen 2D 4.6 [ 3.0 - 4.0 ] cm RA Pressure 3.0 mmHg Findings: Left Ventricle: Lower limits of normal systolic function. Mild concentric left ventricular hypertrophy. Mild enlargement of left ventricle cavity. Ejection fraction is visually estimated at 50 %. Abnormal Diastolic Function. Right Ventricle: Normal right ventricular size. Normal right ventricular systolic function. Left Atrium: There is mild enlargement of left atrium. Right Atrium: The right atrium is normal in size. Mitral Valve: Normal appearance and function of the mitral valve with trace physiologic regurgitation. Mild mitral leaflet calcification. Mild mitral annular calcification. Trace mitral regurgitation. Aortic Valve: Aortic valve Max velocity 2.00 m/sec. Max PG 16.00 mmHg. Aortic sclerosis without significant stenosis. Trace aortic valve regurgitation. Tricuspid Valve: Normal appearance of the tricuspid valve. Estimated peak PA systolic pressure 40 mmHg. There is trace tricuspid regurgitation. Pulmonic Valve: Normal pulmonic valve appearance. Pericardium: Normal pericardium with no significant pericardial effusion. Aorta: Normal aortic root. IVC: Normal size and normal respiratory collapse consistent with normal right atrial pressure. Conclusions: Lower limits of normal systolic function. Mild concentric left ventricular hypertrophy. Mild enlargement of left ventricle cavity. Ejection fraction is visually estimated at 50 %. Abnormal Diastolic Function. There is mild enlargement of left atrium. Normal appearance and function of the mitral valve with trace physiologic regurgitation. Mild mitral leaflet calcification. Mild mitral annular calcification. Trace mitral regurgitation. Normal appearance of the tricuspid valve. Estimated peak PA systolic pressure 40 mmHg. There is trace tricuspid regurgitation. Electronically Signed By: Pradip Chavez 2018-09-24 19:19:52 PDT
[2018-09-25] VITALS (19 sets, daily range): BP systolic 90–135; BP diastolic 55–63; PULSE 21–89; RESP 16–20
[2018-09-25] MEDS: ACCU-CHEK XX SCH (02:00)
[2018-09-25] MEDS: PANTOPRAZOLE IV 80 MG in SOD CHLORIDE 0.9% 100 ML IV SCH ×3 (02:22→20:08)
[2018-09-25] MEDS: INSULIN ASPART [NOVOLOG] 3 ML PEN SC SCH ×6 (03:51→20:12)
[2018-09-25] MEDS ORDERED: BISACODYL (EC) 5 MG TAB PO ONE ×2 (06:00→16:00)
[2018-09-25] MEDS ORDERED: PEG/ELECTROLYTES 4L BTL PO ONE ×2 (06:00→16:30)
[2018-09-25] MEDS: SEVELAMER CARBONATE 0.8 GM PKT PO SCH ×3 (07:55→17:55)
[2018-09-25] MEDS: INSULIN GLARGINE [LANTus] (100 UNITS/ML) SYG SC SCH (08:46)
[2018-09-25] MEDS: MULTIVIT/CA CARB/B CMPLX/FA TAB PO SCH (08:47)
[2018-09-25] MEDS: FOLIC ACID 1 MG TAB PO SCH (08:47)
[2018-09-25] MEDS: EZETIMIBE 10 MG TAB PO SCH (08:47)
[2018-09-25] MEDS ORDERED: SOD CHLORIDE 0.9% 250 ML IV* ONE (09:25)
--- NOTE | 2018-09-25 11:06 | PN ---
Date/Time of Note Date/Time of Note DATE: 09/25/18 TIME: 11:04 Assessment/Plan VTE Prophylaxis Risk score (from Nsg)>0 risk: 4 SCD applied (from Ns): Yes Pharmacological prophylaxis: NA/contraindicated Pharm contraindication: bleeding, anticoag not tolerated Lines/Catheters IV Catheter Type (from [facility]): Peripheral IV Urinary Cath still in place: No Assessment/Plan Hospital Course SUBJECTIVE: Patient has blackish stool. Denies abdominal pain, nausea or vomiting. Denies diarrhea. OBJECTIVE: Vital signs-see below PHYSICAL EXAM: Constitutional: Adequately built,not in acute distress. HEENT: Head atraumatic and normocephalic. Eyes: Extraocular muscles intact. Anicteric sclerae. Pupils equal bilaterally, reactive to light. NECK: Supple without lymph node. CHEST: Slight wheezing on right upper lobe. HEART: S1, S2. Regular rate and rhythm. ABDOMEN: Soft/non tender with no rebound tenderness. Bowel sounds were present. EXTREMITIES:BLE 3+edema w/no palpable DP pulses. 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 NEUROLOGIC: Alert and oriented x3. No focal deficit. No sensory deficit. PSYCHOSOCIAL: No signs of depression. INTEGUMENTARY: left foot 3rd toe chronic ulcer. no oozing. Pale skin. ASSESSMENT AND PLAN:67 yo with numerous comorbidities including dyslipidemia,dmII,ESRD/HD and severe PVD who is also anticoagulated on Eliquis/Plavix,here with worsening malaise, found to have severe anemia/positive stool OB... Severe symptomatic blood loss anemia -Improving. Will transfuse 1 more PRBC today if possible prior to EGD. -Serial H&H, transfuse to keep hemoglobin greater than 8.0. -no atc/antiplatelets for now Melena, rule out upper versus lower GI bleed -GI consult for EGD/colonoscopy evaluation today -cont.Protonix gtt -Hold anticoagulants/antiplatelets ESRD, hemodialysis MWF -Management per nephrology DMII -Cont.basal/bolus -transition to oral on dc Hyperkalemia with ESRD -This is now resolved Leukocytosis, likely reactive -Resolved. No evidence to suggest any active infection. 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 He was also recently treated with full course of antimicrobials. -Wound care Obesity with BMI 36.3 -Weight reduction advised. DVT prophylaxis: Chemical prophylaxis is contraindicated. SCDs contraindicated secondary to edema. PUD prophylaxis: Protonix Disposition: Plan is EGD/colonoscopy today. We will follow-up findings/path ology. Patient to receive 1 unit of packed red blood cells today, monitor H&H closely. Follow-up nephrology and GI recommendations. Patient was seen in collaboration with Dr. Beltran. Result Diagram: 09/25/18 0554 09/25/18 0554 Results 24hrs Laboratory Tests Test 09/24/18 18:01 09/24/18 18:09 09/24/18 20:57 09/25/18 01:50 Bedside Glucose 325 H 237 H 149 Hemoglobin 7.4 #L Hematocrit 22.7 #L Test 09/25/18 02:57 09/25/18 05:42 09/25/18 05:52 09/25/18 05:54 Hemoglobin 7.7 L 7.3 L Hematocrit 23.8 L 22.6 L Bedside Glucose 203 Iron Level 40 Total Iron Binding 268 Capacity Percent Iron Saturation 15 L White Blood Count 8.6 # Red Blood Count 2.41 #L Mean Corpuscular Volume 93.8 Mean Corpuscular 30.3 Hemoglobin Mean Corpuscular 32.3 Hemoglobin Concent Red Cell Distribution 15.9 H Width Platelet Count 181 Mean Platelet Volume 11.7 H Immature Granulocytes % 0.900 H Neutrophils % 76.7 Lymphocytes % 10.7 L Monocytes % 8.0 Eosinophils % 2.8 Basophils % 0.9 Nucleated Red Blood 0.2 H Cells % Immature Granulocytes # 0.080 H Neutrophils # 6.6 Lymphocytes # 0.9 Monocytes # 0.7 Eosinophils # 0.2 Basophils # 0.1 Nucleated Red Blood 0.0 Cells # Sodium Level 140 Potassium Level 4.5 Chloride Level 97 Carbon Dioxide Level 32 H Anion Gap 11 Blood Urea Nitrogen 59 #H Creatinine 5.55 #H Est Glomerular Filtrat 10 L Rate mL/min Glucose Level 178 # Hemoglobin A1c 6.4 H Calcium Level 7.6 L Phosphorus Level 4.3 Magnesium Level 2.0 Total Bilirubin 0.1 L Direct Bilirubin 0.00 Indirect Bilirubin 0.1 Aspartate Amino 30 Transf (AST/SGOT) Alanine 21 Aminotransferase (ALT/SG PT) Alkaline Phosphatase 35 L Total Protein 6.4 Albumin 3.4 Globulin 3.00 Albumin/Globulin Ratio 1.13 Triglycerides Level 281 H Cholesterol Level 142 LDL Cholesterol, 61 Calculated HDL Cholesterol 25 L Cholesterol/HDL Ratio 5.6 Exam/Review of Systems Exam Vitals Vital Signs Date Temp Pulse Resp B/P (MAP) Pulse Ox O2 O2 Flow FiO2 Time Delivery Rate 09/25/18 85 08:00 09/25/18 98.2 18 122/60 98 Room Air 07:27 (80) 09/24/18 4.0 16:45 Intake and Output 09/24/18 09/24/18 09/25/18 1515:00 23:00 07:00 IntakeIntake Total 2000 ml OutputOutput Total 2400 ml BalanceBalance -400 ml Results Results 24hrs Laboratory Tests Test 09/24/18 18:01 09/24/18 18:09 09/24/18 20:57 09/25/18 01:50 Bedside Glucose 325 H 237 H 149 Hemoglobin 7.4 #L Hematocrit 22.7 #L Test 09/25/18 02:57 09/25/18 05:42 09/25/18 05:52 09/25/18 05:54 Hemoglobin 7.7 L 7.3 L Hematocrit 23.8 L 22.6 L Bedside Glucose 203 Iron Level 40 Total Iron Binding 268 Capacity Percent Iron Saturation 15 L White Blood Count 8.6 # Red Blood Count 2.41 #L Mean Corpuscular Volume 93.8 Mean Corpuscular 30.3 Hemoglobin Mean Corpuscular 32.3 Hemoglobin Concent Red Cell Distribution 15.9 H Width Platelet Count 181 Mean Platelet Volume 11.7 H Immature Granulocytes % 0.900 H Neutrophils % 76.7 Lymphocytes % 10.7 L Monocytes % 8.0 Eosinophils % 2.8 Basophils % 0.9 Nucleated Red Blood 0.2 H Cells % Immature Granulocytes # 0.080 H Neutrophils # 6.6 Lymphocytes # 0.9 Monocytes # 0.7 Eosinophils # 0.2 Basophils # 0.1 Nucleated Red Blood 0.0 Cells # Sodium Level 140 Potassium Level 4.5 Chloride Level 97 Carbon Dioxide Level 32 H Anion Gap 11 Blood Urea Nitrogen 59 #H Creatinine 5.55 #H Est Glomerular Filtrat 10 L Rate mL/min Glucose Level 178 # Hemoglobin A1c 6.4 H Calcium Level 7.6 L Phosphorus Level 4.3 Magnesium Level 2.0 Total Bilirubin 0.1 L Direct Bilirubin 0.00 Indirect Bilirubin 0.1 Aspartate Amino 30 Transf (AST/SGOT) Alanine 21 Aminotransferase (ALT/SG PT) Alkaline Phosphatase 35 L Total Protein 6.4 Albumin 3.4 Globulin 3.00 Albumin/Globulin Ratio 1.13 Triglycerides Level 281 H Cholesterol Level 142 LDL Cholesterol, 61 Calculated HDL Cholesterol 25 L Cholesterol/HDL Ratio 5.6 Medications Medication Current Medications Dextrose (D50w Syringe) ONCE PRN IV DECREASED GLUCOSE; Start 09/24/18 at 08:00 EZETIMIBE (Zetia) 10 mg DAILY PO ; Start 09/25/18 at 09:00 Folic Acid (Folic Acid) 1 mg DAILY PO ; Start 09/25/18 at 09:00 Multivit/Ca Carb/ B Cmplx/FA/Prenat (Isabel-Brenda) 1 tab DAILY PO ; Start 09/25/18 at 09:00 Sevelamer Carbonate (Renvela) 0.8 gm WITH MEALS PO Last administered on 09/24/18at 18:03; Admin Dose 0.8 GM; Start 09/24/18 at 17:55 IV Flush (NS 3 ml) 3 ml PER PROTOCOL IV ; Start 09/24/18 at 12:30 Ondansetron HCl (Zofran Tab) 4 mg Q6H PRN PO NAUSEA/VOMITING; Start 09/24/18 at 12:30 Acetaminophen (Tylenol Tab) 650 mg Q6H PRN PO .PAIN 1-3 OR TEMP; Start 09/24/18 at 12:30 Diagnostic Test (Pha) (Accu-Chek) 1 ea 02 XX Last administered on 09/25/18at 02:00; Admin Dose 1 EA; Start 09/25/18 at 02:00 Insulin Glargine (Lantus) 31 units DAILY@0800 SC Last administered on 09/25/18 08:46; Admin Dose 31 UNITS; Start 09/24/18 at 12:30 Insulin Aspart (Novolog Insulin Pen) NOVOLOG *MILD* ALGORI... Q4 SC Last ad ministered on 09/25/18 08:45; Admin Dose 2 UNIT; Start 09/24/18 at 13:00 Pantoprazole 80 mg/Sodium Chloride 100 ml @ 10 mls/hr Q10H IV Last administered on 5/2/19at 02:22; Admin Dose 10 MLS/HR; Start 09/24/18 at 12:30 Miscellaneous Information 1 ea NOTE XX ; Start 09/24/18 at 13:30 Glucose (Glutose) 15 gm Q15M PRN PO DECREASED GLUCOSE; Start 09/24/18 at 13:30 Glucose (Glutose) 22.5 gm Q15M PRN PO DECREASED GLUCOSE; Start 09/24/18 at 13:30 Dextrose (D50w Syringe) 25 ml Q15M PRN IV DECREASED GLUCOSE; Start 09/24/18 at 13:30 Dextrose (D50w Syringe) 50 ml Q15M PRN IV DECREASED GLUCOSE; Start 09/24/18 at 13:30 Glucagon (Glucagen) 1 mg Q15M PRN IM DECREASED GLUCOSE; Start 09/24/18 at 13:30 Glucose (Glutose) 15 gm Q15M PRN BUCCAL DECREASED GLUCOSE; Start 09/24/18 at 13:30 Albumin Human 100 ml @ 100 mls/hr WITH DIALYSIS PRN IV SBP <90 DURING DIALYSIS; Start 09/24/18 at 18:30 Sodium Chloride (NS) -To prime the dialy... DIRECTED FOR HD PRN IV HD; Start 09/24/18 at 18:30 Ferric Sodium Gluconate Complex 125 mg/Sodium Chloride 100 ml @ 100 mls/hr DAILY@1300 IVPB ; Start 09/25/18 at 13:00; Stop 09/27/18 at 13:59 DENZEL MICHAELS NP September 25, 2018 11:06
--- NOTE | 2018-09-25 11:50 | PREAC ---
Date/Time of Note Date/Time of Note DATE: 09/25/18 TIME: 11:39 Anesthesia Eval and Record Evaluation Time Pre-Procedure Interview DATE: 09/25/18 TIME: 11:39 Age 67 Sex male NPO: 8 hrs Preoperative diagnosis gi bleed Planned procedure EGD/Colonoscopy Past Medical History Past Medical History: Includes (PVD) Endo: Diabetes Renal: ESRD on dialysis Heme: Anemia Surgery & Anesthesia Issues No known issue (stent placement; eye sx) Meds Anticoagulation: Yes (Eliquis taken saturday night; pt also took plavix on Saturday; GI lab charge nurse notified to send info to Dr Forrest re: anticoagulants) Beta Jesse within 24 hr: No Reason Beta Jesse not given: Pt. not on B-Jesse Reported Medications Clopidogrel Bisulfate (Clopidogrel) 75 Mg Tablet, 75 MG PO DAILY, #30 TAB 09/24/18 Ezetimibe* (Zetia*) 10 Mg Tablet, 10 MG PO DAILY, TAB 08/29/18 Insulin Lispro (Humalog Kwikpen U-100) 100 Unit/1 Ml Insuln.pen, 0 SQ SLIDING SCALE, EA 08/28/18 Insulin Glargine* (Lantus*) 100 Unit/Ml Soln, 0 SC QHS, #1 VIAL 45-52 UNITS 08/28/18 Metolazone* (Metolazone*) 5 Mg Tablet, 10 MG PO BID, TAB 08/28/18 Multivit/Ca Carb/B Cmplx/Fa* (Isabel-Brenda*) 1 Tab Tab, 1 TAB PO DAILY, TAB 08/28/18 Furosemide* (Furosemide*) 80 Mg Tablet, 160 MG PO BID, #60 TAB 08/28/18 Folic Acid* (Folic Acid*) 1 Mg Tablet, 1 MG PO DAILY, TAB 08/28/18 Apixaban* (Eliquis*) 5 Mg Tablet, 5 MG PO BID, TAB 08/28/18 Sevelamer Carbonate* (Renvela*) 800 Mg Tablet, 0.8 GM PO WITH MEALS, TAB 08/28/18 Discontinued Scripts Clopidogrel Bisulfate (Clopidogrel) 75 Mg Tablet, 75 MG PO DAILY, #60 TAB Prov:LORI VINES 09/01/18 Current Medications Dextrose (D50w Syringe) ONCE PRN IV DECREASED GLUCOSE; Start 09/24/18 at 08:00 EZETIMIBE (Zetia) 10 mg DAILY PO ; Start 09/25/18 at 09:00 Folic Acid (Folic Acid) 1 mg DAILY PO ; Start 09/25/18 at 09:00 Multivit/Ca Carb/ B Cmplx/FA/Prenat (Isabel-Brenda) 1 tab DAILY PO ; Start 09/25/18 at 09:00 Sevelamer Carbonate (Renvela) 0.8 gm WITH MEALS PO Last administered on 09/24/18at 18:03; Admin Dose 0.8 GM; Start 09/24/18 at 17:55 IV Flush (NS 3 ml) 3 ml PER PROTOCOL IV ; Start 09/24/18 at 12:30 Ondansetron HCl (Zofran Tab) 4 mg Q6H PRN PO NAUSEA/VOMITING; Start 09/24/18 at 12:30 Acetaminophen (Tylenol Tab) 650 mg Q6H PRN PO .PAIN 1-3 OR TEMP; Start 09/24/18 at 12:30 Diagnostic Test (Pha) (Accu-Chek) 1 ea 02 XX Last administered on 09/25/18at 02:00; Admin Dose 1 EA; Start 09/25/18 at 02:00 Insulin Glargine (Lantus) 31 units DAILY@0800 SC Last administered on 09/25/18at 08:46; Admin Dose 31 UNITS; Start 09/24/18 at 12:30 Insulin Aspart (Novolog Insulin Pen) NOVOLOG *MILD* ALGORI... Q4 SC Last administered on 09/25/18at 08:45; Admin Dose 2 UNIT; Start 09/24/18 at 13:00 Pantoprazole 80 mg/Sodium Chloride 100 ml @ 10 mls/hr Q10H IV Last administered on 09/25/18at 02:22; Admin Dose 10 MLS/HR; Start 09/24/18 at 12:30 Miscellaneous Information 1 ea NOTE XX ; Start 09/24/18 at 13:30 Glucose (Glutose) 15 gm Q15M PRN PO DECREASED GLUCOSE; Start 09/24/18 at 13:30 Glucose (Glutose) 22.5 gm Q15M PRN PO DECREASED GLUCOSE; Start 09/24/18 at 13:30 Dextrose (D50w Syringe) 25 ml Q15M PRN IV DECREASED GLUCOSE; Start 09/24/18 at 13:30 Dextrose (D50w Syringe) 50 ml Q15M PRN IV DECREASED GLUCOSE; Start 09/24/18 at 13:30 Glucagon (Glucagen) 1 mg Q15M PRN IM DECREASED GLUCOSE; Start 09/24/18 at 13:30 Glucose (Glutose) 15 gm Q15M PRN BUCCAL DECREASED GLUCOSE; Start 09/24/18 at 13:30 Albumin Human 100 ml @ 100 mls/hr WITH DIALYSIS PRN IV SBP <90 DURING DIALYSIS; Start 09/24/18 at 18:30 Sodium Chloride (NS) -To prime the dialy... DIRECTED FOR HD PRN IV HD; Start 09/24/18 at 18:30 Ferric Sodium Gluconate Complex 125 mg/Sodium Chloride 100 ml @ 100 mls/hr DAILY@1300 IVPB ; Start 09/25/18 at 13:00; Stop 09/27/18 at 13:59 Meds reviewed: Yes Allergies Coded Allergies: No Known Allergies (Verified Allergy, Mild, 09/24/18) Allergies Reviewed: Yes Labs/Studies Labs Reviewed: Reviewed by anesthesiologist Result Diagram: 09/25/18 0554 09/25/18 0554 Laboratory Tests 09/25/18 05:54 test: N/A Studies: CXR (Cardiomegaly) Pre-procedure Exam Last vitals Vital Signs Date Temp Pulse Resp B/P (MAP) Pulse Ox O2 O2 Flow FiO2 Time Delivery Rate 09/25/18 85 08:00 09/25/18 98.2 18 122/60 98 Room Air 07:27 (80) 09/24/18 4.0 16:45 Airway: Adequate mouth opening, Adequate thyromental dist Mallampati: Mallampati II Teeth: Normal Lung: Normal Heart: Normal ASA Physical Status ASA physical status: 3 Emergency: None Planned Anesthetic General/MAC: MAC Pre-operative Attestations Prior to commencing anesthesia and surgery, the patient was re-evaluated, there was verification of: *The patient's identity *The results of appropriate recent lab work and preoperative vital signs *The above evaluation not changing prior to induction *Anesthetic plan, risk benefits, alternative and complications discussed with patient/family; questions answered; patient/family understands, accepts and wishes to proceed. Dental Hygiene Instructor used TIAN VALENZUELA September 25, 2018 11:49
--- NOTE | 2018-09-25 13:55 | PN ---
Date/Time of Note Date/Time of Note DATE: 09/25/18 TIME: 13:44 Assessment/Plan VTE Prophylaxis Risk score (from Nsg)>0 risk: 4 SCD applied (from Nsg): Yes Pharmacological prophylaxis: other (scds) Lines/Catheters IV Catheter Type (from Nrs): Peripheral IV Urinary Cath still in place: No Assessment/Plan Hospital Course Assessment: Severe acute on chronic anemia Melena ESRD on HD DM Bilateral lower extremity atherosclerosis with left lower extremity third toe ulcer Hx of colonoscopy 05/12- suboptimal prep- no gross lesions- rec to f/u 6 months to 1 year Plan: Monitor H/H q 6 hrs transfuse for hgb less than 7.5 Clear liquid diet again today with another round of prep- and patient is not clear EGD/colonoscopy rescheduled to tomorrow Patient seen in collaboration with Dr. Cardoza/CONTRERAS Subjective: Course reviewed with nursing staff Patient interviewed and examined All labs, imaging and other results reviewed The patient appears pale, and tried, stool not clear- per my supervising physician Dr. Caterina Forrest will reschedule EGD/colonoscopy to tomorrow to allow further prep and more time being off blood thinners. Discussed plan with patient, daughter, and patient's . Constitutional: alert, oriented, other (pale) Psych: no complaints Head: normocephalic, atraumatic Neck: supple, non-tender Respiratory: clear to auscultation Cardiovascular: regular rate and rhythm Gastrointestinal: soft, bowel sounds Extremities: other (discoloration to x2 toes left foot) Skin: other (AV fistula BRIGHT) Result Diagram: 09/25/18 0554 09/25/18 0554 Results 24hrs Laboratory Tests Test 09/24/18 18:01 09/24/18 18:09 09/24/18 20:57 09/25/18 01:50 Bedside Glucose 325 H 237 H 149 Hemoglobin 7.4 #L Hematocrit 22.7 #L Test 09/25/18 02:57 09/25/18 05:42 09/25/18 05:52 09/25/18 05:54 Hemoglobin 7.7 L 7.3 L Hematocrit 23.8 L 22.6 L Bedside Glucose 203 Iron Level 40 Total Iron Binding 268 Capacity Percent Iron Saturation 15 L White Blood Count 8.6 # Red Blood Count 2.41 #L Mean Corpuscular Volume 93.8 Mean Corpuscular 30.3 Hemoglobin Mean Corpuscular 32.3 Hemoglobin Concent Red Cell Distribution 15.9 H Width Platelet Count 181 Mean Platelet Volume 11.7 H Immature Granulocytes % 0.900 H Neutrophils % 76.7 Lymphocytes % 10.7 L Monocytes % 8.0 Eosinophils % 2.8 Basophils % 0.9 Nucleated Red Blood 0.2 H Cells % Immature Granulocytes # 0.080 H Neutrophils # 6.6 Lymphocytes # 0.9 Monocytes # 0.7 Eosinophils # 0.2 Basophils # 0.1 Nucleated Red Blood 0.0 Cells # Sodium Level 140 Potassium Level 4.5 Chloride Level 97 Carbon Dioxide Level 32 H Anion Gap 11 Blood Urea Nitrogen 59 #H Creatinine 5.55 #H Est Glomerular Filtrat 10 L Rate mL/min Glucose Level 178 # Hemoglobin A1c 6.4 H Calcium Level 7.6 L Phosphorus Level 4.3 Magnesium Level 2.0 Total Bilirubin 0.1 L Direct Bilirubin 0.00 Indirect Bilirubin 0.1 Aspartate Amino 30 Transf (AST/SGOT) Alanine 21 Aminotransferase (ALT/SG PT) Alkaline Phosphatase 35 L Total Protein 6.4 Albumin 3.4 Globulin 3.00 Albumin/Globulin Ratio 1.13 Triglycerides Level 281 H Cholesterol Level 142 LDL Cholesterol, 61 Calculated HDL Cholesterol 25 L Cholesterol/HDL Ratio 5.6 Test 09/25/18 12:27 Bedside Glucose 163 Exam/Review of Systems Exam Vitals Vital Signs Date Temp Pulse Resp B/P (MAP) Pulse Ox O2 O2 Flow FiO2 Time Delivery Rate 09/25/18 97.6 89 16 132/62 98 Room Air 12:08 (85) 09/24/18 4.0 16:45 Intake and Output 09/24/18 09/24/18 09/25/18 1515:00 23:00 07:00 IntakeIntake Total 2000 ml OutputOutput Total 2400 ml BalanceBalance -400 ml Results Results 24hrs Laboratory Tests Test 09/24/18 18:01 09/24/18 18:09 09/24/18 20:57 09/25/18 01:50 Bedside Glucose 325 H 237 H 149 Hemoglobin 7.4 #L Hematocrit 22.7 #L Test 09/25/18 02:57 09/25/18 05:42 09/25/18 05:52 09/25/18 05:54 Hemoglobin 7.7 L 7.3 L Hematocrit 23.8 L 22.6 L Bedside Glucose 203 Iron Level 40 Total Iron Binding 268 Capacity Percent Iron Saturation 15 L White Blood Count 8.6 # Red Blood Count 2.41 #L Mean Corpuscular Volume 93.8 Mean Corpuscular 30.3 Hemoglobin Mean Corpuscular 32.3 Hemoglobin Concent Red Cell Distribution 15.9 H Width Platelet Count 181 Mean Platelet Volume 11.7 H Immature Granulocytes % 0.900 H Neutrophils % 76.7 Lymphocytes % 10.7 L Monocytes % 8.0 Eosinophils % 2.8 Basophils % 0.9 Nucleated Red Blood 0.2 H Cells % Immature Granulocytes # 0.080 H Neutrophils # 6.6 Lymphocytes # 0.9 Monocytes # 0.7 Eosinophils # 0.2 Basophils # 0.1 Nucleated Red Blood 0.0 Cells # Sodium Level 140 Potassium Level 4.5 Chloride Level 97 Carbon Dioxide Level 32 H Anion Gap 11 Blood Urea Nitrogen 59 #H Creatinine 5.55 #H Est Glomerular Filtrat 10 L Rate mL/min Glucose Level 178 # Hemoglobin A1c 6.4 H Calcium Level 7.6 L Phosphorus Level 4.3 Magnesium Level 2.0 Total Bilirubin 0.1 L Direct Bilirubin 0.00 Indirect Bilirubin 0.1 Aspartate Amino 30 Transf (AST/SGOT) Alanine 21 Aminotransferase (ALT/SG PT) Alkaline Phosphatase 35 L Total Protein 6.4 Albumin 3.4 Globulin 3.00 Albumin/Globulin Ratio 1.13 Triglycerides Level 281 H Cholesterol Level 142 LDL Cholesterol, 61 Calculated HDL Cholesterol 25 L Cholesterol/HDL Ratio 5.6 Test 09/25/18 12:27 Bedside Glucose 163 Medications Medication Current Medications Dextrose (D50w Syringe) ONCE PRN IV DECREASED GLUCOSE; Start 09/24/18 at 08:00 EZETIMIBE (Zetia) 10 mg DAILY PO ; Start 09/25/18 at 09:00 Folic Acid (Folic Acid) 1 mg DAILY PO ; Start 09/25/18 at 09:00 Multivit/Ca Carb/ B Cmplx/FA/Prenat (Isabel-Brenda) 1 tab DAILY PO ; Start 09/25/18 at 09:00 Sevelamer Carbonate (Renvela) 0.8 gm WITH MEALS PO Last administered on 09/24/18at 18:03; Admin Dose 0.8 GM; Start 09/24/18 at 17:55 IV Flush (NS 3 ml) 3 ml PER PROTOCOL IV ; Start 09/24/18 at 12:30 Ondansetron HCl (Zofran Tab) 4 mg Q6H PRN PO NAUSEA/VOMITING; Start 09/24/18 at 12:30 Acetaminophen (Tylenol Tab) 650 mg Q6H PRN PO .PAIN 1-3 OR TEMP; Start 09/24/18 at 12:30 Diagnostic Test (Pha) (Accu-Chek) 1 ea 02 XX Last administered on 09/25/18at 02:00; Admin Dose 1 EA; Start 09/25/18 at 02:00 Insulin Glargine (Lantus) 31 units DAILY@0800 SC Last administered on 09/25/18at 08:46; Admin Dose 31 UNITS; Start 09/24/18 at 12:30 Insulin Aspart (Novolog Insulin Pen) NOVOLOG *MILD* ALGORI... Q4 SC Last administered on 09/25/18at 12:50; Admin Dose 1 UNIT; Start 09/24/18 at 13:00 Pantoprazole 80 mg/Sodium Chloride 100 ml @ 10 mls/hr Q10H IV Last administered on 09/25/18at 02:22; Admin Dose 10 MLS/HR; Start 09/24/18 at 12:30 Miscellaneous Information 1 ea NOTE XX ; Start 09/24/18 at 13:30 Glucose (Glutose) 15 gm Q15M PRN PO DECREASED GLUCOSE; Start 09/24/18 at 13:30 Glucose (Glutose) 22.5 gm Q15M PRN PO DECREASED GLUCOSE; Start 09/24/18 at 13:30 Dextrose (D50w Syringe) 25 ml Q15M PRN IV DECREASED GLUCOSE; Start 09/24/18 at 13:30 Dextrose (D50w Syringe) 50 ml Q15M PRN IV DECREASED GLUCOSE; Start 09/24/18 at 13:30 Glucagon (Glucagen) 1 mg Q15M PRN IM DECREASED GLUCOSE; Start 09/24/18 at 13:30 Glucose (Glutose) 15 gm Q15M PRN BUCCAL DECREASED GLUCOSE; Start 09/24/18 at 13:30 Albumin Human 100 ml @ 100 mls/hr WITH DIALYSIS PRN IV SBP <90 DURING DIALYSIS; Start 09/24/18 at 18:30 Sodium Chloride (NS) -To prime the dialy... DIRECTED FOR HD PRN IV HD; Start 09/24/18 at 18:30 Ferric Sodium Gluconate Complex 125 mg/Sodium Chloride 100 ml @ 100 mls/hr DAILY@1300 IVPB ; Start 09/25/18 at 13:00; Stop 09/27/18 at 13:59 HERRERA WORRELL September 25, 2018 13:54
[2018-09-25] MEDS: SOD FERRIC GLUC COMPLX 125 MG in SOD CHLORIDE 0.9% 100 ML IVPB SCH (13:58)
--- NOTE | 2018-09-25 15:06 | CONS ---
Assessment/Plan Assessment/Plan Hospital Course (Demo Recall) Upper GI bleed: anemia, melena. He has a h/o PUD years ago. Exacerbated by Eliquis/plavix Anemia: due to above. s/p 2 units PRBCs Kurt: Kaylee 1. Not on BB. No pauses or high grade block. 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 Possibly just restart plavix or ASA eventually as no h/o afib and remote DVT history -lipitor 40mg -no BB -lasix/metolazone on hold this admission -HD per nephrology Consultation Date/Type/Reason Admit Date/Time 09/24/2018 Type of Consult Cardiology Date/Time of Note DATE: 09/25/18 TIME: 15:05 Hx of Present Illness 67 yo M with a h/o CAD s/p PCI years ago with normal cath per pt < 3 months prior, PAD s/p recent left leg intervention with embolization and gangrene of left third toe, h/o DVT previously on coumadin and now Eliquis, uncontrolled DM, ESRD on HD, HTN, who presented with melena x 7 days and weakness. He was found to h ave a hgb of 5.8 s/p 2 units. He is to have an EGD tomorrow. No chest pain or SOB. He also had a recent left cephalic vein stent with Dr. Mejia 09/18. He was on plavix and Eliquis for his peripheral disease and CAD. per HPI Past Medical History per hPI Home Meds Reported Medications Clopidogrel Bisulfate (Clopidogrel) 75 Mg Tablet, 75 MG PO DAILY, #30 TAB 09/24/18 Ezetimibe* (Zetia*) 10 Mg Tablet, 10 MG PO DAILY, TAB 08/29/18 Insulin Lispro (Humalog Kwikpen U-100) 100 Unit/1 Ml Insuln.pen, 0 SQ SLIDING SCALE, EA 08/28/18 Insulin Glargine* (Lantus*) 100 Unit/Ml Soln, 0 SC QHS, #1 VIAL 45-52 UNITS 08/28/18 Metolazone* (Metolazone*) 5 Mg Tablet, 10 MG PO BID, TAB 08/28/18 Multivit/Ca Carb/B Cmplx/Fa* (Isabel-Brenda*) 1 Tab Tab, 1 TAB PO DAILY, TAB 08/28/18 Furosemide* (Furosemide*) 80 Mg Tablet, 160 MG PO BID, #60 TAB 08/28/18 Folic Acid* (Folic Acid*) 1 Mg Tablet, 1 MG PO DAILY, TAB 08/28/18 Apixaban* (Eliquis*) 5 Mg Tablet, 5 MG PO BID, TAB 08/28/18 Sevelamer Carbonate* (Renvela*) 800 Mg Tablet, 0.8 GM PO WITH MEALS, TAB 08/28/18 Discontinued Scripts Clopidogrel Bisulfate (Clopidogrel) 75 Mg Tablet, 75 MG PO DAILY, #60 TAB Prov:LORI VINES 09/01/18 Medications Current Medications Dextrose (D50w Syringe) ONCE PRN IV DECREASED GLUCOSE; Start 09/24/18 at 08:00 EZETIMIBE (Zetia) 10 mg DAILY PO ; Start 09/25/18 at 09:00 Folic Acid (Folic Acid) 1 mg DAILY PO ; Start 09/25/18 at 09:00 Multivit/Ca Carb/ B Cmplx/FA/Prenat (Isabel-Brenda) 1 tab DAILY PO ; Start 09/25/18 at 09:00 Sevelamer Carbonate (Renvela) 0.8 gm WITH MEALS PO Last administered on 09/24/18at 18:03; Admin Dose 0.8 GM; Start 09/24/18 at 17:55 IV Flush (NS 3 ml) 3 ml PER PROTOCOL IV ; Start 09/24/18 at 12:30 Ondansetron HCl (Zofran Tab) 4 mg Q6H PRN PO NAUSEA/VOMITING; Start 09/24/18 at 12:30 Acetaminophen (Tylenol Tab) 650 mg Q6H PRN PO .PAIN 1-3 OR TEMP; Start 09/24/18 at 12:30 Diagnostic Test (Pha) (Accu-Chek) 1 ea 02 XX Last administered on 09/25/18at 02:00; Admin Dose 1 EA; Start 09/25/18 at 02:00 Insulin Glargine (Lantus) 31 units DAILY@0800 SC Last administered on 09/25/18at 08:46; Admin Dose 31 UNITS; Start 09/24/18 at 12:30 Insulin Aspart (Novolog Insulin Pen) NOVOLOG *MILD* ALGORI... Q4 SC Last administered on 09/25/18at 12:50; Admin Dose 1 UNIT; Start 09/24/18 at 13:00 Pantoprazole 80 mg/Sodium Chloride 100 ml @ 10 mls/hr Q10H IV Last administered on 09/25/18at 13:58; Admin Dose 10 MLS/HR; Start 09/24/18 at 12:30 Miscellaneous Information 1 ea NOTE XX ; Start 09/24/18 at 13:30 Glucose (Glutose) 15 gm Q15M PRN PO DECREASED GLUCOSE; Start 09/24/18 at 13:30 Glucose (Glutose) 22.5 gm Q15M PRN PO DECREASED GLUCOSE; Start 09/24/18 at 13:30 Dextrose (D50w Syringe) 25 ml Q15M PRN IV DECREASED GLUCOSE; Start 09/24/18 at 13:30 Dextrose (D50w Syringe) 50 ml Q15M PRN IV DECREASED GLUCOSE; Start 09/24/18 at 13:30 Glucagon (Glucagen) 1 mg Q15M PRN IM DECREASED GLUCOSE; Start 09/24/18 at 13:30 Glucose (Glutose) 15 gm Q15M PRN BUCCAL DECREASED GLUCOSE; Start 09/24/18 at 13:30 Albumin Human 100 ml @ 100 mls/hr WITH DIALYSIS PRN IV SBP <90 DURING DIALYSIS; Start 09/24/18 at 18:30 Sodium Chloride (NS) -To prime the dialy... DIRECTED FOR HD PRN IV HD; Start 09/24/18 at 18:30 Ferric Sodium Gluconate Complex 125 mg/Sodium Chloride 100 ml @ 100 mls/hr DAILY@1300 IVPB Last administered on 09/25/18at 13:58; Admin Dose 100 MLS/HR; Start 09/25/18 at 13:00; Stop 09/27/18 at 13:59 Bisacodyl (Dulcolax) 10 mg ONCE ONCE PO ; Start 09/25/18 at 16:00; Stop 09/25/18 at 16:01; Status UNV Polyethylene Glycol/ Electrolytes (Golytely) 2,000 ml ONCE ONCE PO ; Start 09/25/18 at 16:30; Stop 09/25/18 at 16:31; Status UNV Allergies: Coded Allergies: No Known Allergies (Verified Allergy, Mild, 09/24/18) Past Surgical History Past Surgical Hx: other (AV fistula for HD access ) Social History Alcohol Use: none Smoking Status: Never smoker Exam/Review of Systems Vital Signs Vitals Vital Signs Date Temp Pulse Resp B/P (MAP) Pulse Ox O2 O2 Flow FiO2 Time Delivery Rate 09/25/18 97.6 89 16 132/62 98 Room Air 12:08 (85) 09/24/18 4.0 16:45 Intake and Output 09/24/18 09/24/18 09/25/18 1515:00 23:00 07:00 IntakeIntake Total 2000 ml OutputOutput Total 2400 ml BalanceBalance -400 ml Exam Constitutional: alert, oriented Psych: no complaints, nl mood/affect Head: normocephalic, atraumatic Neck: No jvd Respiratory: diminished breath sounds; No clear to auscultation, No crackles/rales Cardiovascular: regular rate and rhythm, edema (trace) Gastrointestinal: soft, non-tender; No distended 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: nl mental status, nl speech Labs Result Diagram: 09/25/18 0554 09/25/18 0554 Results 24hrs Laboratory Tests Test 09/24/18 18:01 09/24/18 18:09 09/24/18 20:57 09/25/18 01:50 Bedside Glucose 325 H 237 H 149 Hemoglobin 7.4 #L Hematocrit 22.7 #L Test 09/25/18 02:57 09/25/18 05:42 09/25/18 05:52 09/25/18 05:54 Hemoglobin 7.7 L 7.3 L Hematocrit 23.8 L 22.6 L Bedside Glucose 203 Iron Level 40 Total Iron Binding 268 Capacity Percent Iron Saturation 15 L White Blood Count 8.6 # Red Blood Count 2.41 #L Mean Corpuscular Volume 93.8 Mean Corpuscular 30.3 Hemoglobin Mean Corpuscular 32.3 Hemoglobin Concent Red Cell Distribution 15.9 H Width Platelet Count 181 Mean Platelet Volume 11.7 H Immature Granulocytes % 0.900 H Neutrophils % 76.7 Lymphocytes % 10.7 L Monocytes % 8.0 Eosinophils % 2.8 Basophils % 0.9 Nucleated Red Blood 0.2 H Cells % Immature Granulocytes # 0.080 H Neutrophils # 6.6 Lymphocytes # 0.9 Monocytes # 0.7 Eosinophils # 0.2 Basophils # 0.1 Nucleated Red Blood 0.0 Cells # Sodium Level 140 Potassium Level 4.5 Chloride Level 97 Carbon Dioxide Level 32 H Anion Gap 11 Blood Urea Nitrogen 59 #H Creatinine 5.55 #H Est Glomerular Filtrat 10 L Rate mL/min Glucose Level 178 # Hemoglobin A1c 6.4 H Calcium Level 7.6 L Phosphorus Level 4.3 Magnesium Level 2.0 Total Bilirubin 0.1 L Direct Bilirubin 0.00 Indirect Bilirubin 0.1 Aspartate Amino 30 Transf (AST/SGOT) Alanine 21 Aminotransferase (ALT/SG PT) Alkaline Phosphatase 35 L Total Protein 6.4 Albumin 3.4 Globulin 3.00 Albumin/Globulin Ratio 1.13 Triglycerides Level 281 H Cholesterol Level 142 LDL Cholesterol, 61 Calculated HDL Cholesterol 25 L Cholesterol/HDL Ratio 5.6 Test 09/25/18 12:27 Bedside Glucose 163 Medications Medications Current Medications Dextrose (D50w Syringe) ONCE PRN IV DECREASED GLUCOSE; Start 09/24/18 at 08:00 EZETIMIBE (Zetia) 10 mg DAILY PO ; Start 09/25/18 at 09:00 Folic Acid (Folic Acid) 1 mg DAILY PO ; Start 09/25/18 at 09:00 Multivit/Ca Carb/ B Cmplx/FA/Prenat (Isabel-Brenda) 1 tab DAILY PO ; Start 09/25/18 at 09:00 Sevelamer Carbonate (Renvela) 0.8 gm WITH MEALS PO Last administered on 09/24/18at 18:03; Admin Dose 0.8 GM; Start 09/24/18 at 17:55 IV Flush (NS 3 ml) 3 ml PER PROTOCOL IV ; Start 09/24/18 at 12:30 Ondansetron HCl (Zofran Tab) 4 mg Q6H PRN PO NAUSEA/VOMITING; Start 09/24/18 at 12:30 Acetaminophen (Tylenol Tab) 650 mg Q6H PRN PO .PAIN 1-3 OR TEMP; Start 09/24/18 at 12:30 Diagnostic Test (Pha) (Accu-Chek) 1 ea 02 XX Last administered on 09/25/18at 02:00; Admin Dose 1 EA; Start 09/25/18 at 02:00 Insulin Glargine (Lantus) 31 units DAILY@0800 SC Last administered on 09/25/18at 08:46; Admin Dose 31 UNITS; Start 09/24/18 at 12:30 Insulin Aspart (Novolog Insulin Pen) NOVOLOG *MILD* ALGORI... Q4 SC Last administered on 09/25/18at 12:50; Admin Dose 1 UNIT; Start 09/24/18 at 13:00 Pantoprazole 80 mg/Sodium Chloride 100 ml @ 10 mls/hr Q10H IV Last administered on 09/25/18at 13:58; Admin Dose 10 MLS/HR; Start 09/24/18 at 12:30 Miscellaneous Information 1 ea NOTE XX ; Start 09/24/18 at 13:30 Glucose (Glutose) 15 gm Q15M PRN PO DECREASED GLUCOSE; Start 09/24/18 at 13:30 Glucose (Glutose) 22.5 gm Q15M PRN PO DECREASED GLUCOSE; Start 09/24/18 at 13:30 Dextrose (D50w Syringe) 25 ml Q15M PRN IV DECREASED GLUCOSE; Start 09/24/18 at 13:30 Dextrose (D50w Syringe) 50 ml Q15M PRN IV DECREASED GLUCOSE; Start 09/24/18 at 13:30 Glucagon (Glucagen) 1 mg Q15M PRN IM DECREASED GLUCOSE; Start 09/24/18 at 13:30 Glucose (Glutose) 15 gm Q15M PRN BUCCAL DECREASED GLUCOSE; Start 09/24/18 at 13:30 Albumin Human 100 ml @ 100 mls/hr WITH DIALYSIS PRN IV SBP <90 DURING DIALYSIS; Start 09/24/18 at 18:30 Sodium Chloride (NS) -To prime the dialy... DIRECTED FOR HD PRN IV HD; Start 09/24/18 at 18:30 Ferric Sodium Gluconate Complex 125 mg/Sodium Chloride 100 ml @ 100 mls/hr DAILY@1300 IVPB Last administered on 09/25/18at 13:58; Admin Dose 100 MLS/HR; Start 09/25/18 at 13:00; Stop 09/27/18 at 13:59 Bisacodyl (Dulcolax) 10 mg ONCE ONCE PO ; Start 09/25/18 at 16:00; Stop 09/25/18 at 16:01; Status UNV Polyethylene Glycol/ Electrolytes (Golytely) 2,000 ml ONCE ONCE PO ; Start 09/25/18 at 16:30; Stop 09/25/18 at 16:31; Status UNV LAVON SEE September 25, 2018 15:06
--- NOTE | 2018-09-25 18:33 | CONS ---
Assessment/Plan Assessment/Plan Assessment/Plan (Daily) 1. acute Hyperkalemia due to GI bleeding 2.Acute fluid overload with Uremia BUN 111 on admission 3. acute GI bleeding causing acute blood loss anemia 4. Severe Anemia with Hb 5.8 on admission 5. H/O HTN 6. H/O peripherla vascular disease 7. ESRD on HD Plan: EGD and colonoscopy postponed to tomorrow, s/p 2 U PRBC on 09/24/18- Now Hb 7.3 today, H/H q 6 hr, Ok to transfuse as needed, will adjust his HD prescription accordingly BUN imporved from 111 to 50 with 1 session of HD yesterday, - HD ordered for tomorrow [facility], up, pt is already on epogen in HD unit Consultation Date/Type/Reason Admit Date/Time September 24, 2018 at 08:08 Initial Consult Date 09/24/18 Type of Consult NEPHROLOGY Requesting Provider: DENZEL MICHAELS NP Date/Time of Note DATE: 09/25/18 TIME: 18:33 Exam/Review of Systems Exam Vitals Vital Signs Date Temp Pulse Resp B/P (MAP) Pulse Ox O2 O2 Flow FiO2 Time Delivery Rate 09/25/18 79 16:00 09/25/18 98.1 16 118/59 98 Room Air 15:14 (78) 09/24/18 4.0 16:45 Intake and Output 09/24/18 09/24/18 09/25/18 1515:00 23:00 07:00 IntakeIntake Total 2000 ml OutputOutput Total 2400 ml BalanceBalance -400 ml Exam Constitutional: Alert, awake no acute distress HEENT: [place] , Pale conjunctive, pale mucous membrane NECK: Supple without lymph node. CHEST: Slight wheezing on right upper lobe. HEART: S1, S2. Regular rate and rhythm. ABDOMEN: Soft/non tender with no rebound tenderness. Bowel sounds were present. EXTREMITIES: 3+edema on both LE NEUROLOGIC: Alert and oriented x3. No focal deficit. No sensory deficit. PSYCHOSOCIAL: No signs of depression. INTEGUMENTARY: left foot 3rd toe chronic ulcer. no oozing. Pale skin. Results Result Diagram: 09/25/18 0554 09/25/18 0554 Results 24hrs Laboratory Tests Test 09/24/18 20:57 09/25/18 01:50 09/25/18 02:57 09/25/18 05:42 Bedside Glucose 237 H 149 203 Hemoglobin 7.7 L Hematocrit 23.8 L Test 09/25/18 05:52 09/25/18 05:54 09/25/18 12:27 09/25/18 17:32 Iron Level 40 Total Iron Binding 268 Capacity Percent Iron Saturation 15 L White Blood Count 8.6 # Red Blood Count 2.41 #L Hemoglobin 7.3 L Hematocrit 22.6 L Mean Corpuscular Volume 93.8 Mean Corpuscular 30.3 Hemoglobin Mean Corpuscular 32.3 Hemoglobin Concent Red Cell Distribution 15.9 H Width Platelet Count 181 Mean Platelet Volume 11.7 H Immature Granulocytes % 0.900 H Neutrophils % 76.7 Lymphocytes % 10.7 L Monocytes % 8.0 Eosinophils % 2.8 Basophils % 0.9 Nucleated Red Blood 0.2 H Cells % Immature Granulocytes # 0.080 H Neutrophils # 6.6 Lymphocytes # 0.9 Monocytes # 0.7 Eosinophils # 0.2 Basophils # 0.1 Nucleated Red Blood 0.0 Cells # Sodium Level 140 Potassium Level 4.5 Chloride Level 97 Carbon Dioxide Level 32 H Anion Gap 11 Blood Urea Nitrogen 59 #H Creatinine 5.55 #H Est Glomerular Filtrat 10 L Rate mL/min Glucose Level 178 # Hemoglobin A1c 6.4 H Calcium Level 7.6 L Phosphorus Level 4.3 Magnesium Level 2.0 Total Bilirubin 0.1 L Direct Bilirubin 0.00 Indirect Bilirubin 0.1 Aspartate Amino 30 Transf (AST/SGOT) Alanine 21 Aminotransferase (ALT/SG PT) Alkaline Phosphatase 35 L Total Protein 6.4 Albumin 3.4 Globulin 3.00 Albumin/Globulin Ratio 1.13 Triglycerides Level 281 H Cholesterol Level 142 LDL Cholesterol, 61 Calculated HDL Cholesterol 25 L Cholesterol/HDL Ratio 5.6 Bedside Glucose 163 140 Medications Medication Current Medications Dextrose (D50w Syringe) ONCE PRN IV DECREASED GLUCOSE; Start 09/24/18 at 08:00 EZETIMIBE (Zetia) 10 mg DAILY PO ; Start 09/25/18 at 09:00 Folic Acid (Folic Acid) 1 mg DAILY PO ; Start 09/25/18 at 09:00 Multivit/Ca Carb/ B Cmplx/FA/Prenat (Isabel-Brenda) 1 tab DAILY PO ; Start 09/25/18 at 09:00 Sevelamer Carbonate (Renvela) 0.8 gm WITH MEALS PO Last administered on 09/24/18at 18:03; Admin Dose 0.8 GM; Start 09/24/18 at 17:55 IV Flush (NS 3 ml) 3 ml PER PROTOCOL IV ; Start 09/24/18 at 12:30 Ondansetron HCl (Zofran Tab) 4 mg Q6H PRN PO NAUSEA/VOMITING; Start 09/24/18 at 12:30 Acetaminophen (Tylenol Tab) 650 mg Q6H PRN PO .PAIN 1-3 OR TEMP; Start 09/24/18 at 12:30 Diagnostic Test (Pha) (Accu-Chek) 1 ea 02 XX Last administered on 09/25/18at 02:00; Admin Dose 1 EA; Start 09/25/18 at 02:00 Insulin Glargine (Lantus) 31 units DAILY@0800 SC Last administered on 09/25/18at 08:46; Admin Dose 31 UNITS; Start 09/24/18 at 12:30 Insulin Aspart (Novolog Insulin Pen) NOVOLOG *MILD* ALGORI... Q4 SC Last administered on 09/25/18at 12:50; Admin Dose 1 UNIT; Start 09/24/18 at 13:00 Pantoprazole 80 mg/Sodium Chloride 100 ml @ 10 mls/hr Q10H IV Last administered on 09/25/18at 13:58; Admin Dose 10 MLS/HR; Start 09/24/18 at 12:30 Miscellaneous Information 1 ea NOTE XX ; Start 09/24/18 at 13:30 Glucose (Glutose) 15 gm Q15M PRN PO DECREASED GLUCOSE; Start 09/24/18 at 13:30 Glucose (Glutose) 22.5 gm Q15M PRN PO DECREASED GLUCOSE; Start 09/24/18 at 13:30 Dextrose (D50w Syringe) 25 ml Q15M PRN IV DECREASED GLUCOSE; Start 09/24/18 at 13:30 Dextrose (D50w Syringe) 50 ml Q15M PRN IV DECREASED GLUCOSE; Start 09/24/18 at 13:30 Glucagon (Glucagen) 1 mg Q15M PRN IM DECREASED GLUCOSE; Start 09/24/18 at 13:30 Glucose (Glutose) 15 gm Q15M PRN BUCCAL DECREASED GLUCOSE; Start 09/24/18 at 13:30 Albumin Human 100 ml @ 100 mls/hr WITH DIALYSIS PRN IV SBP <90 DURING DIALYSIS; Start 09/24/18 at 18:30 Sodium Chloride (NS) -To prime the dialy... DIRECTED FOR HD PRN IV HD; Start 09/24/18 at 18:30 Ferric Sodium Gluconate Complex 125 mg/Sodium Chloride 100 ml @ 100 mls/hr DAILY@1300 IVPB Last administered on 09/25/18at 13:58; Admin Dose 100 MLS/HR; Start 09/25/18 at 13:00; Stop 09/27/18 at 13:59 Atorvastatin Calcium (Lipitor) 40 mg HS PO ; Start 09/25/18 at 21:00 RAQUEL MCDOWELL MD September 25, 2018 18:33
[2018-09-25] MEDS: ATORVASTATIN 40 MG TAB PO SCH (20:09)
[2018-09-26] VITALS (33 sets, daily range): BP systolic 101–162; BP diastolic 45–70; PULSE 53–94; RESP 12–20
[2018-09-26] MEDS: INSULIN ASPART [NOVOLOG] 3 ML PEN SC SCH ×6 (01:00→20:59)
[2018-09-26] MEDS: ACCU-CHEK XX SCH (02:00)
[2018-09-26] MEDS: PANTOPRAZOLE IV 80 MG in SOD CHLORIDE 0.9% 100 ML IV SCH ×2 (05:20→17:59)
[2018-09-26] MEDS: SEVELAMER CARBONATE 0.8 GM PKT PO SCH ×3 (07:55→17:59)
[2018-09-26] MEDS: INSULIN GLARGINE [LANTus] (100 UNITS/ML) SYG SC SCH (08:09)
[2018-09-26] MEDS: EZETIMIBE 10 MG TAB PO SCH (08:10)
[2018-09-26] MEDS: FOLIC ACID 1 MG TAB PO SCH (08:10)
[2018-09-26] MEDS: MULTIVIT/CA CARB/B CMPLX/FA TAB PO SCH (08:10)
[2018-09-26] MEDS ORDERED: SOD CHLORIDE 0.9% 250 ML IV* ONE (09:53)
--- NOTE | 2018-09-26 10:08 | PN ---
Date/Time of Note Date/Time of Note DATE: 09/26/18 TIME: 10:03 Assessment/Plan VTE Prophylaxis Risk score (from Nsg)>0 risk: 6 SCD applied (from Ns): No SCD contraindicated: other Pharmacological prophylaxis: NA/contraindicated Pharm contraindication: bleeding Lines/Catheters IV C[facility] Type (from [facility] Peripheral IV Urinary Cath still in place: No Assessment/Plan Hospital Course SUBJECTIVE: Patient is scheduled for EGD/colonoscopy today. He is complaining of intermittent severe claudication pain on bilateral left lower extremities.. .Edema improved significantly... OBJECTIVE: Vital signs-see below PHYSICAL EXAM: Constitutional: Adequately built,not in acute distress. HEENT: Head atraumatic and normocephalic. Eyes: Extraocular muscles intact. Anicteric sclerae. Pupils equal bilaterally, reactive to light. NECK: Supple without lymph node. CHEST: Slight wheezing on right upper lobe. HEART: S1, S2. Regular rate and rhythm. ABDOMEN: Soft/non tender with no rebound tenderness. Bowel sounds were present. EXTREMITIES:BLE 2+edema (improved) w/no palpable DP pulses. 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 NEUROLOGIC: Alert and oriented x3. No focal deficit. No sensory deficit. PSYCHOSOCIAL: No signs of depression. INTEGUMENTARY: left foot 3rd toe chronic ulcer. no oozing. Pale skin. ASSESSMENT AND PLAN:67 yo with numerous comorbidities including dyslipidemia,dmII,ESRD/HD and severe PVD who is also anticoagulated on Eliquis/Plavix,here with worsening malaise, found to have severe anemia/positive stool OB... Severe acute symptomatic blood loss anemia -Slowly improving. Recommend transfusing with hemodialysis today to further optimize hemoglobin. -1 dose iv iron f/b oral replacement -Serial H&H -no atc/antiplatelets for now Melena, rule out upper versus lower GI bleed -GI consult for EGD/colonoscopy evaluation today -cont.Protonix gtt -Again, hold anticoagulants/antiplatelets ESRD, hemodialysis MWF -Management per nephrology -Patient voids and he also takes metolazone/Lasix at home which is being on hold and defer nephrology for review. 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 -We will start on low-dose Trental for pain and will titrate up as renal function permits. Patient is not a candidate for antiplatelet/anticoagulation. -Wound care Obesity with BMI 36.3 -Weight reduction advised. Anemia of ESRD -Consider Epogen with hemodialysis. DVT prophylaxis: Chemical prophylaxis is contraindicated. SCDs contraindicated secondary to edema. PUD prophylaxis: Protonix Disposition: Plan is EGD/colonoscopy today. Also going to get hemodialysis today and we will transfuse with dialysis. Patient was seen in collaboration with Dr. Beltran. Result Diagram: 09/26/18 0657 09/26/18 0657 Results 24hrs Laboratory Tests Test 09/25/18 12:27 09/25/18 17:32 09/25/18 19:48 09/25/18 20:10 Bedside Glucose 163 140 130 Hemoglobin 7.9 L Hematocrit 24.4 L Test 09/26/18 00:49 09/26/18 05:22 09/26/18 06:57 09/26/18 08:03 Hemoglobin 7.3 L 7.6 L Hematocrit 22.4 L 23.5 L Bedside Glucose 107 117 White Blood Count 6.5 # Red Blood Count 2.49 L Mean Corpuscular Volume 94.4 Mean Corpuscular 30.5 Hemoglobin Mean Corpuscular 32.3 Hemoglobin Concent Red Cell Distribution 17.2 H Width Platelet Count 175 Mean Platelet Volume 12.0 H Immature Granulocytes % 0.600 H Neutrophils % 64.8 Lymphocytes % 18.5 Monocytes % 10.9 Eosinophils % 4.4 Basophils % 0.8 Nucleated Red Blood 0.0 Cells % Immature Granulocytes # 0.040 H Neutrophils # 4.2 Lymphocytes # 1.2 Monocytes # 0.7 Eosinophils # 0.3 Basophils # 0.1 Nucleated Red Blood 0.0 Cells # Sodium Level 143 Potassium Level 3.3 L Chloride Level 100 Carbon Dioxide Level 30 Anion Gap 13 Blood Urea Nitrogen 63 H Creatinine 7.29 H Est Glomerular Filtrat 8 L Rate mL/min Glucose Level 103 # Calcium Level 8.2 L Exam/Review of Systems Exam Vitals Vital Signs Date Temp Pulse Resp B/P (MAP) Pulse Ox O2 O2 Flow FiO2 Time Delivery Rate 09/26/18 74 08:07 09/26/18 97.6 18 131/59 98 Room Air 07:30 (83) 09/24/18 4.0 16:45 Intake and Output 09/25/18 09/25/18 09/26/18 1515:00 23:00 07:00 IntakeIntake Total 1100 ml BalanceBalance 1100 ml Results Results 24hrs Laboratory Tests Test 09/25/18 12:27 09/25/18 17:32 09/25/18 19:48 09/25/18 20:10 Bedside Glucose 163 140 130 Hemoglobin 7.9 L Hematocrit 24.4 L Test 09/26/18 00:49 09/26/18 05:22 09/26/18 06:57 09/26/18 08:03 Hemoglobin 7.3 L 7.6 L Hematocrit 22.4 L 23.5 L Bedside Glucose 107 117 White Blood Count 6.5 # Red Blood Count 2.49 L Mean Corpuscular Volume 94.4 Mean Corpuscular 30.5 Hemoglobin Mean Corpuscular 32.3 Hemoglobin Concent Red Cell Distribution 17.2 H Width Platelet Count 175 Mean Platelet Volume 12.0 H Immature Granulocytes % 0.600 H Neutrophils % 64.8 Lymphocytes % 18.5 Monocytes % 10.9 Eosinophils % 4.4 Basophils % 0.8 Nucleated Red Blood 0.0 Cells % Immature Granulocytes # 0.040 H Neutrophils # 4.2 Lymphocytes # 1.2 Monocytes # 0.7 Eosinophils # 0.3 Basophils # 0.1 Nucleated Red Blood 0.0 Cells # Sodium Level 143 Potassium Level 3.3 L Chloride Level 100 Carbon Dioxide Level 30 Anion Gap 13 Blood Urea Nitrogen 63 H Creatinine 7.29 H Est Glomerular Filtrat 8 L Rate mL/min Glucose Level 103 # Calcium Level 8.2 L Medications Medication Current Medications Dextrose (D50w Syringe) ONCE PRN IV DECREASED GLUCOSE; Start 09/24/18 at 08:00 EZETIMIBE (Zetia) 10 mg DAILY PO ; Start 09/25/18 at 09:00 Folic Acid (Folic Acid) 1 mg DAILY PO ; Start 09/25/18 at 09:00 Multivit/Ca Carb/ B Cmplx/FA/Prenat (Isabel-Brenda) 1 tab DAILY PO ; Start 09/25/18 at 09:00 Sevelamer Carbonate (Renvela) 0.8 gm WITH MEALS PO Last administered on 09/24/18at 18:03; Admin Dose 0.8 GM; Start 09/24/18 at 17:55 IV Flush (NS 3 ml) 3 ml PER PROTOCOL IV ; Start 09/24/18 at 12:30 Ondansetron HCl (Zofran Tab) 4 mg Q6H PRN PO NAUSEA/VOMITING; Start 09/24/18 at 12:30 Acetaminophen (Tylenol Tab) 650 mg Q6H PRN PO .PAIN 1-3 OR TEMP; Start 09/24/18 at 12:30 Diagnostic Test (Pha) (Accu-Chek) 1 ea 02 XX Last administered on 09/25/18at 02:00; Admin Dose 1 EA; Start 09/25/18 at 02:00 Insulin Glargine (Lantus) 31 units DAILY@0800 SC Last administered on 09/26/18at 08:09; Admin Dose 31 UNITS; Start 09/24/18 at 12:30 Insulin Aspart (Novolog Insulin Pen) NOVOLOG *MILD* ALGORI... Q4 SC Last administered on 09/25/18at 12:50; Admin Dose 1 UNIT; Start 09/24/18 at 13:00 Pantoprazole 80 mg/Sodium Chloride 100 ml @ 10 mls/hr Q10H IV Last administered on 09/26/18at 05:20; Admin Dose 10 MLS/HR; Start 09/24/18 at 12:30 Miscellaneous Information 1 ea NOTE XX ; Start 09/24/18 at 13:30 Glucose (Glutose) 15 gm Q15M PRN PO DECREASED GLUCOSE; Start 09/24/18 at 13:30 Glucose (Glutose) 22.5 gm Q15M PRN PO DECREASED GLUCOSE; Start 09/24/18 at 13:30 Dextrose (D50w Syringe) 25 ml Q15M PRN IV DECREASED GLUCOSE; Start 09/24/18 at 13:30 Dextrose (D50w Syringe) 50 ml Q15M PRN IV DECREASED GLUCOSE; Start 09/24/18 at 13:30 Glucagon (Glucagen) 1 mg Q15M PRN IM DECREASED GLUCOSE; Start 09/24/18 at 13:30 Glucose (Glutose) 15 gm Q15M PRN BUCCAL DECREASED GLUCOSE; Start 09/24/18 at 13:30 Albumin Human 100 ml @ 100 mls/hr WITH DIALYSIS PRN IV SBP <90 DURING DIALYS IS; Start 09/24/18 at 18:30 Sodium Chloride (NS) -To prime the dialy... DIRECTED FOR HD PRN IV HD; Start 09/24/18 at 18:30 Ferric Sodium Gluconate Complex 125 mg/Sodium Chloride 100 ml @ 100 mls/hr DAILY@1300 IVPB Last administered on 09/25/18at 13:58; Admin Dose 100 MLS/HR; Start 09/25/18 at 13:00; Stop 09/27/18 at 13:59 Atorvastatin Calcium (Lipitor) 40 mg HS PO Last administered on 09/25/18at 20:09; Admin Dose 40 MG; Start 09/25/18 at 21:00 DENZEL MICHAELS NP September 26, 2018 10:08
[2018-09-26] MEDS ORDERED: SOD FERRIC GLUC COMPLX 125 MG in SOD CHLORIDE 0.9% 100 ML IVPB ONE (12:00)
[2018-09-26] MEDS: SOD FERRIC GLUC COMPLX 125 MG in SOD CHLORIDE 0.9% 100 ML IVPB SCH (12:39)
--- NOTE | 2018-09-26 12:54 | CONS ---
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 -Patient and were advised about condition in detail. -Right foot gangrene is stable. -Recommend betadine dressing changes. -Patient to follow up with me outpatient basis. Consultation Date/Type/Reason Admit Date/Time September 24, 2018 at 08:08 Date/Time of Note DATE: 09/26/18 TIME: 12:21 Patient seen at bedside for right foot gangrene of hallux, 2nd and 3rd digit. Patient has been seen by me in my own office. Patient is also seen by Vascular surgeon Dr. Mejia that referred patient to me. Patient is admitted for possible GI bleed. Right foot gangrenous toes continue to be stable at this time. Past Medical History Medical History: high cholesterol, hypertension, other (PVD, ESRD on HD ) Home Meds Reported Medications Clopidogrel Bisulfate (Clopidogrel) 75 Mg Tablet, 75 MG PO DAILY, #30 TAB 09/24/18 Ezetimibe* (Zetia*) 10 Mg Tablet, 10 MG PO DAILY, TAB 08/29/18 Insulin Lispro (Humalog Kwikpen U-100) 100 Unit/1 Ml Insuln.pen, 0 SQ SLIDING SCALE, EA 08/28/18 Insulin Glargine* (Lantus*) 100 Unit/Ml Soln, 0 SC QHS, #1 VIAL 45-52 UNITS 08/28/18 Metolazone* (Metolazone*) 5 Mg Tablet, 10 MG PO BID, TAB 08/28/18 Multivit/Ca Carb/B Cmplx/Fa* (Isabel-Brenda*) 1 Tab Tab, 1 TAB PO DAILY, TAB 08/28/18 Furosemide* (Furosemide*) 80 Mg Tablet, 160 MG PO BID, #60 TAB 08/28/18 Folic Acid* (Folic Acid*) 1 Mg Tablet, 1 MG PO DAILY, TAB 08/28/18 Apixaban* (Eliquis*) 5 Mg Tablet, 5 MG PO BID, TAB 08/28/18 Sevelamer Carbonate* (Renvela*) 800 Mg Tablet, 0.8 GM PO WITH MEALS, TAB 08/28/18 Discontinued Scripts Clopidogrel Bisulfate (Clopidogrel) 75 Mg Tablet, 75 MG PO DAILY, #60 TAB Prov:LORI VINES 09/01/18 Medications Current Medications Dextrose (D50w Syringe) ONCE PRN IV DECREASED GLUCOSE; Start 09/24/18 at 08:00 EZETIMIBE (Zetia) 10 mg DAILY PO ; Start 09/25/18 at 09:00 Folic Acid (Folic Acid) 1 mg DAILY PO ; Start 09/25/18 at 09:00 Multivit/Ca Carb/ B Cmplx/FA/Prenat (Isabel-Brenda) 1 tab DAILY PO ; Start 09/25/18 at 09:00 Sevelamer Carbonate (Renvela) 0.8 gm WITH MEALS PO Last administered on 09/24/18at 18:03; Admin Dose 0.8 GM; Start 09/24/18 at 17:55 IV Flush (NS 3 ml) 3 ml PER PROTOCOL IV ; Start 09/24/18 at 12:30 Ondansetron HCl (Zofran Tab) 4 mg Q6H PRN PO NAUSEA/VOMITING; Start 09/24/18 at 12:30 Acetaminophen (Tylenol Tab) 650 mg Q6H PRN PO .PAIN 1-3 OR TEMP; Start 09/24/18 at 12:30 Diagnostic Test (Pha) (Accu-Chek) 1 ea 02 XX Last administered on 09/25/18at 02:00; Admin Dose 1 EA; Start 09/25/18 at 02:00 Insulin Glargine (Lantus) 31 units DAILY@0800 SC Last administered on 09/26/18at 08:09; Admin Dose 31 UNITS; Start 09/24/18 at 12:30 Insulin Aspart (Novolog Insulin Pen) NOVOLOG *MILD* ALGORI... Q4 SC Last administered on 09/25/18at 12:50; Admin Dose 1 UNIT; Start 09/24/18 at 13:00 Pantoprazole 80 mg/Sodium Chloride 100 ml @ 10 mls/hr Q10H IV Last administered on 09/26/18at 05:20; Admin Dose 10 MLS/HR; Start 09/24/18 at 12:30 Miscellaneous Information 1 ea NOTE XX ; Start 09/24/18 at 13:30 Glucose (Glutose) 15 gm Q15M PRN PO DECREASED GLUCOSE; Start 09/24/18 at 13:30 Glucose (Glutose) 22.5 gm Q15M PRN PO DECREASED GLUCOSE; Start 09/24/18 at 13:30 Dextrose (D50w Syringe) 25 ml Q15M PRN IV DECREASED GLUCOSE; Start 09/24/18 at 13:30 Dextrose (D50w Syringe) 50 ml Q15M PRN IV DECREASED GLUCOSE; Start 09/24/18 at 13:30 Glucagon (Glucagen) 1 mg Q15M PRN IM DECREASED GLUCOSE; Start 09/24/18 at 13:30 Glucose (Glutose) 15 gm Q15M PRN BUCCAL DECREASED GLUCOSE; Start 09/24/18 at 13:30 Albumin Human 100 ml @ 100 mls/hr WITH DIALYSIS PRN IV SBP <90 DURING DIALYSIS; Start 09/24/18 at 18:30 Sodium Chloride (NS) -To prime the dialy... DIRECTED FOR HD PRN IV HD; Start 09/24/18 at 18:30 Ferric Sodium Gluconate Complex 125 mg/Sodium Chloride 100 ml @ 100 mls/hr DAILY@1300 IVPB Last administered on 09/25/18at 13:58; Admin Dose 100 MLS/HR; Start 09/25/18 at 13:00; Stop 09/27/18 at 13:59 Atorvastatin Calcium (Lipitor) 40 mg HS PO Last administered on 09/25/18at 20:09; Admin Dose 40 MG; Start 09/25/18 at 21:00 Pentoxifylline (Trental) 400 mg DAILY PO ; Start 09/27/18 at 09:00 Docusate Sodium/ Ferrous Fumarate (Les-Sequels) 1 tab BID PO ; Start 09/27/18 at 21:00 Allergies: Coded Allergies: No Known Allergies (Verified Allergy, Mild, 09/24/18) Past Surgical History Past Surgical Hx: other (AV fistula for HD access ) Social History Alcohol Use: none Smoking Status: Never smoker Exam/Review of Systems Exam Vitals Vital Signs Date Temp Pulse Resp B/P (MAP) Pulse Ox O2 O2 Flow FiO2 Time Delivery Rate 09/26/18 67 12:04 09/26/18 98.7 16 134/67 98 Room Air 11:19 (89) 09/24/18 4.0 16:45 Intake and Output 09/25/18 09/25/18 09/26/18 1515:00 23:00 07:00 IntakeIntake Total 1100 ml BalanceBalance 1100 ml Exam Patient is alert and oriented in no acute distress. Vasc: non palpable pedal pulses right foot. Neuro: protective sensation diminished. Derm: right foot dry gangrene of hallux, 2nd and 3rd digit. No edema or erythema of right foot noted. Results Result Diagram: 09/26/18 0657 09/26/18 0657 Results 24hrs Laboratory Tests Test 09/25/18 12:27 09/25/18 17:32 09/25/18 19:48 09/25/18 20:10 Bedside Glucose 163 140 130 Hemoglobin 7.9 L Hematocrit 24.4 L Test 09/26/18 00:49 09/26/18 05:22 09/26/18 06:57 09/26/18 08:03 Hemoglobin 7.3 L 7.6 L Hematocrit 22.4 L 23.5 L Bedside Glucose 107 117 White Blood Count 6.5 # Red Blood Count 2.49 L Mean Corpuscular Volume 94.4 Mean Corpuscular 30.5 Hemoglobin Mean Corpuscular 32.3 Hemoglobin Concent Red Cell Distribution 17.2 H Width Platelet Count 175 Mean Platelet Volume 12.0 H Immature Granulocytes % 0.600 H Neutrophils % 64.8 Lymphocytes % 18.5 Monocytes % 10.9 Eosinophils % 4.4 Basophils % 0.8 Nucleated Red Blood 0.0 Cells % Immature Granulocytes # 0.040 H Neutrophils # 4.2 Lymphocytes # 1.2 Monocytes # 0.7 Eosinophils # 0.3 Basophils # 0.1 Nucleated Red Blood 0.0 Cells # Sodium Level 143 Potassium Level 3.3 L Chloride Level 100 Carbon Dioxide Level 30 Anion Gap 13 Blood Urea Nitrogen 63 H Creatinine 7.29 H Est Glomerular Filtrat 8 L Rate mL/min Glucose Level 103 # Calcium Level 8.2 L Medications Medication Current Medications Dextrose (D50w Syringe) ONCE PRN IV DECREASED GLUCOSE; Start 09/24/18 at 08:00 EZETIMIBE (Zetia) 10 mg DAILY PO ; Start 09/25/18 at 09:00 Folic Acid (Folic Acid) 1 mg DAILY PO ; Start 09/25/18 at 09:00 Multivit/Ca Carb/ B Cmplx/FA/Prenat (Isabel-Brenda) 1 tab DAILY PO ; Start 09/25/18 at 09:00 Sevelamer Carbonate (Renvela) 0.8 gm WITH MEALS PO Last administered on 09/24/18at 18:03; Admin Dose 0.8 GM; Start 09/24/18 at 17:55 IV Flush (NS 3 ml) 3 ml PER PROTOCOL IV ; Start 09/24/18 at 12:30 Ondansetron HCl (Zofran Tab) 4 mg Q6H PRN PO NAUSEA/VOMITING; Start 09/24/18 at 12:30 Acetaminophen (Tylenol Tab) 650 mg Q6H PRN PO .PAIN 1-3 OR TEMP; Start 09/24/18 at 12:30 Diagnostic Test (Pha) (Accu-Chek) 1 ea 02 XX Last administered on 09/25/18at 02:00; Admin Dose 1 EA; Start 09/25/18 at 02:00 Insulin Glargine (Lantus) 31 units DAILY@0800 SC Last administered on 09/26/18at 08:09; Admin Dose 31 UNITS; Start 09/24/18 at 12:30 Insulin Aspart (Novolog Insulin Pen) NOVOLOG *MILD* ALGORI... Q4 SC Last administered on 09/25/18at 12:50; Admin Dose 1 UNIT; Start 09/24/18 at 13:00 Pantoprazole 80 mg/Sodium Chloride 100 ml @ 10 mls/hr Q10H IV Last administered on 09/26/18at 05:20; Admin Dose 10 MLS/HR; Start 09/24/18 at 12:30 Miscellaneous Information 1 ea NOTE XX ; Start 09/24/18 at 13:30 Glucose (Glutose) 15 gm Q15M PRN PO DECREASED GLUCOSE; Start 09/24/18 at 13:30 Glucose (Glutose) 22.5 gm Q15M PRN PO DECREASED GLUCOSE; Start 09/24/18 at 13:30 Dextrose (D50w Syringe) 25 ml Q15M PRN IV DECREASED GLUCOSE; Start 09/24/18 at 13:30 Dextrose (D50w Syringe) 50 ml Q15M PRN IV DECREASED GLUCOSE; Start 09/24/18 at 13:30 Glucagon (Glucagen) 1 mg Q15M PRN IM DECREASED GLUCOSE; Start 09/24/18 at 13:30 Glucose (Glutose) 15 gm Q15M PRN BUCCAL DECREASED GLUCOSE; Start 09/24/18 at 13:30 Albumin Human 100 ml @ 100 mls/hr WITH DIALYSIS PRN IV SBP <90 DURING DIALYSIS; Start 09/24/18 at 18:30 Sodium Chloride (NS) -To prime the dialy... DIRECTED FOR HD PRN IV HD; Start 09/24/18 at 18:30 Ferric Sodium Gluconate Complex 125 mg/Sodium Chloride 100 ml @ 100 mls/hr DAILY@1300 IVPB Last administered on 09/25/18at 13:58; Admin Dose 100 MLS/HR; Start 09/25/18 at 13:00; Stop 09/27/18 at 13:59 Atorvastatin Calcium (Lipitor) 40 mg HS PO Last administered on 09/25/18at 20:09; Admin Dose 40 MG; Start 09/25/18 at 21:00 Pentoxifylline (Trental) 400 mg DAILY PO ; Start 09/27/18 at 09:00 Docusate Sodium/ Ferrous Fumarate (Les-Sequels) 1 tab BID PO ; Start 09/27/18 at 21:00 PUSHPA WALL DPM September 26, 2018 12:31
--- NOTE | 2018-09-26 14:20 | CONS ---
Assessment/Plan Assessment/Plan Hospital Course (Demo Recall) Upper GI bleed: anemia, melena. He has a h/o PUD years ago. Exacerbated by Eliquis/plavix Anemia: due to above. s/p 2 units PRBCs Kurt: Kaylee 1. Not on BB. No pauses or high grade block. 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 Possibly just restart plavix or ASA eventually as no h/o afib and remote DVT history -lipitor 40mg -no BB -lasix 40mg PO BID -HD per nephrology Consultation Date/Type/Reason Admit Date/Time September 24, 2018 at 08:08 Initial Consult Date 09/24/18 Type of Consult Cardiology Requesting Provider: DENZEL MICHAELS NP Date/Time of Note DATE: 09/26/18 TIME: 14:19 24 HR Interval Summary Free Text/Dictation No events. Hgb stable. Will have EGD today Exam/Review of Systems Vital Signs Vitals Vital Signs Date Temp Pulse Resp B/P (MAP) Pulse Ox O2 O2 Flow FiO2 Time Delivery Rate 09/26/18 67 12:04 09/26/18 98.7 16 134/67 98 Room Air 11:19 (89) 09/24/18 4.0 16:45 Intake and Output 09/25/18 09/25/18 09/26/18 1515:00 23:00 07:00 IntakeIntake Total 1100 ml BalanceBalance 1100 ml Exam Exam having EGD currently Labs Result Diagram: 09/26/18 0657 09/26/18 0657 Results 24hrs Laboratory Tests Test 09/25/18 17:32 09/25/18 19:48 09/25/18 20:10 09/26/18 00:49 Bedside Glucose 140 130 Hemoglobin 7.9 L 7.3 L Hematocrit 24.4 L 22.4 L Test 09/26/18 05:22 09/26/18 06:57 09/26/18 08:03 09/26/18 12:40 Bedside Glucose 107 117 106 White Blood Count 6.5 # Red Blood Count 2.49 L Hemoglobin 7.6 L Hematocrit 23.5 L Mean Corpuscular Volume 94.4 Mean Corpuscular 30.5 Hemoglobin Mean Corpuscular 32.3 Hemoglobin Concent Red Cell Distribution 17.2 H Width Platelet Count 175 Mean Platelet Volume 12.0 H Immature Granulocytes % 0.600 H Neutrophils % 64.8 Lymphocytes % 18.5 Monocytes % 10.9 Eosinophils % 4.4 Basophils % 0.8 Nucleated Red Blood 0.0 Cells % Immature Granulocytes # 0.040 H Neutrophils # 4.2 Lymphocytes # 1.2 Monocytes # 0.7 Eosinophils # 0.3 Basophils # 0.1 Nucleated Red Blood 0.0 Cells # Sodium Level 143 Potassium Level 3.3 L Chloride Level 100 Carbon Dioxide Level 30 Anion Gap 13 Blood Urea Nitrogen 63 H Creatinine 7.29 H Est Glomerular Filtrat 8 L Rate mL/min Glucose Level 103 # Calcium Level 8.2 L Medications Medications Current Medications Dextrose (D50w Syringe) ONCE PRN IV DECREASED GLUCOSE; Start 09/24/18 at 08:00 EZETIMIBE (Zetia) 10 mg DAILY PO ; Start 09/25/18 at 09:00 Folic Acid (Folic Acid) 1 mg DAILY PO ; Start 09/25/18 at 09:00 Multivit/Ca Carb/ B Cmplx/FA/Prenat (Isabel-Brenda) 1 tab DAILY PO ; Start 09/25/18 at 09:00 Sevelamer Carbonate (Renvela) 0.8 gm WITH MEALS PO Last administered on 09/24/18at 18:03; Admin Dose 0.8 GM; Start 09/24/18 at 17:55 IV Flush (NS 3 ml) 3 ml PER PROTOCOL IV ; Start 09/24/18 at 12:30 Ondansetron HCl (Zofran Tab) 4 mg Q6H PRN PO NAUSEA/VOMITING; Start 09/24/18 at 12:30 Acetaminophen (Tylenol Tab) 650 mg Q6H PRN PO .PAIN 1-3 OR TEMP; Start 09/24/18 at 12:30 Diagnostic Test (Pha) (Accu-Chek) 1 ea 02 XX Last administered on 09/25/18at 02:00; Admin Dose 1 EA; Start 09/25/18 at 02:00 Insulin Glargine (Lantus) 31 units DAILY@0800 SC Last administered on 09/26/18at 08:09; Admin Dose 31 UNITS; Start 09/24/18 at 12:30 Insulin Aspart (Novolog Insulin Pen) NOVOLOG *MILD* ALGORI... Q4 SC Last administered on 09/25/18at 12:50; Admin Dose 1 UNIT; Start 09/24/18 at 13:00 Pantoprazole 80 mg/Sodium Chloride 100 ml @ 10 mls/hr Q10H IV Last administered on 09/26/18at 05:20; Admin Dose 10 MLS/HR; Start 09/24/18 at 12:30 Miscellaneous Information 1 ea NOTE XX ; Start 09/24/18 at 13:30 Glucose (Glutose) 15 gm Q15M PRN PO DECREASED GLUCOSE; Start 09/24/18 at 13:30 Glucose (Glutose) 22.5 gm Q15M PRN PO DECREASED GLUCOSE; Start 09/24/18 at 13:30 Dextrose (D50w Syringe) 25 ml Q15M PRN IV DECREASED GLUCOSE; Start 09/24/18 at 13:30 Dextrose (D50w Syringe) 50 ml Q15M PRN IV DECREASED GLUCOSE; Start 09/24/18 at 13:30 Glucagon (Glucagen) 1 mg Q15M PRN IM DECREASED GLUCOSE; Start 09/24/18 at 13:30 Glucose (Glutose) 15 gm Q15M PRN BUCCAL DECREASED GLUCOSE; Start 09/24/18 at 13:30 Albumin Human 100 ml @ 100 mls/hr WITH DIALYSIS PRN IV SBP <90 DURING DIALYSIS; Start 09/24/18 at 18:30 Sodium Chloride (NS) -To prime the dialy... DIRECTED FOR HD PRN IV HD; Start 09/24/18 at 18:30 Ferric Sodium Gluconate Complex 125 mg/Sodium Chloride 100 ml @ 100 mls/hr DAILY@1300 IVPB Last administered on 09/26/18at 12:39; Admin Dose 100 MLS/HR; Start 09/25/18 at 13:00; Stop 09/27/18 at 13:59 Atorvastatin Calcium (Lipitor) 40 mg HS PO Last administered on 09/25/18at 20:09; Admin Dose 40 MG; Start 09/25/18 at 21:00 Pentoxifylline (Trental) 400 mg DAILY PO ; Start 09/27/18 at 09:00 Docusate Sodium/ Ferrous Fumarate (Les-Sequels) 1 tab BID PO ; Start 09/27/18 at 21:00 Furosemide (Lasix) 40 mg BID DIURETICS PO ; Start 09/26/18 at 18:00 LAVON SEE September 26, 2018 14:20
[2018-09-26] MEDS ORDERED: LIDOCAINE 2% (SDV) 5 ML INJ ONE (15:02)
[2018-09-26] MEDS ORDERED: PROPOFOL 40 ML ONE (15:02)
--- NOTE | 2018-09-26 15:04 | HPN ---
Date/Time of Note Date/Time of Note DATE: 09/26/18 TIME: 15:03 Interval H&P Admission Note Pt. seen H&P reviewed: No system changes ALPHONSO CHAIREZ September 26, 2018 15:04
[2018-09-26] MEDS ORDERED: EPHEDrine 25 MG/5 ML SYG ONE (15:26)
[2018-09-26] MEDS ORDERED: ONDANSETRON 4 MG INJ IV PRN (15:30)
--- NOTE | 2018-09-26 15:34 | PAC ---
Date/Time of Note Date/Time of Note DATE: 09/26/18 TIME: 15:34 Post-Anesthesia Notes Post-Anesthesia Note Last documented vital signs Vital Signs Date Temp Pulse Resp B/P (MAP) Pulse Ox O2 O2 Flow FiO2 Time Delivery Rate 09/26/18 98.0 80 20 158/70 97 Room Air 14:22 (99) 09/24/18 4.0 16:45 Activity: WNL Respiratory function: WNL Cardiovascular function: WNL Mental status: Baseline Pain reasonably controlled: Yes Hydration appropriate: Yes Nausea/Vomiting absent: Yes Comments BP: 114/60 HR: 62 RR: 15 T: 98 SaO2: 100% LISSA EDEN MD September 26, 2018 15:34
[2018-09-26] MEDS: FUROSEMIDE 40 MG TAB PO SCH (17:59)
--- NOTE | 2018-09-26 18:08 | CONS ---
Assessment/Plan Assessment/Plan Assessment/Plan (Daily) 1. acute Hyperkalemia due to GI bleeding 2.Acute fluid overload with Uremia BUN 111 on admission 3. acute GI bleeding causing acute blood loss anemia 4. Severe Anemia with Hb 5.8 on admission 5. H/O HTN 6. H/O peripherla vascular disease 7. ESRD on HD Plan: EGD and colonoscopy today , s/p 2 U PRBC on 09/24/18- Now Hb 7.3 today, H/H q 6 hr, Ok to transfuse as needed, will adjust his HD prescription accordingly HD schedule is MWF, will paln for Extra HD tomorrow -follow up at [facility] HD cente rfor scheduled HD on MWF pt is already on epogen in HD unit will follow up Consultation Date/Type/Reason Admit Date/Time September 24, 2018 at 08:08 Initial Consult Date 09/24/18 Type of Consult NEPHROLOGY Requesting Provider: DENZEL MICHAELS NP Date/Time of Note DATE: 09/26/18 TIME: 18:08 Exam/Review of Systems Exam Vitals Vital Signs Date Temp Pulse Resp B/P (MAP) Pulse Ox O2 O2 Flow FiO2 Time Delivery Rate 09/26/18 97.7 80 18 143/69 98 Room Air 16:26 (93) 09/24/18 4.0 16:45 Intake and Output 09/25/18 09/25/18 09/26/18 1515:00 23:00 07:00 IntakeIntake Total 1100 ml BalanceBalance 1100 ml Results Result Diagram: 09/26/18 1724 09/26/18 0657 Results 24hrs Laboratory Tests Test 09/25/18 19:48 09/25/18 20:10 09/26/18 00:49 09/26/18 05:22 Hemoglobin 7.9 L 7.3 L Hematocrit 24.4 L 22.4 L Bedside Glucose 130 107 Test 09/26/18 06:57 09/26/18 08:03 09/26/18 12:40 09/26/18 13:52 White Blood Count 6.5 # Red Blood Count 2.49 L Hemoglobin 7.6 L 7.8 L Hematocrit 23.5 L 24.2 L Mean Corpuscular Volume 94.4 Mean Corpuscular 30.5 Hemoglobin Mean Corpuscular 32.3 Hemoglobin Concent Red Cell Distribution 17.2 H Width Platelet Count 175 Mean Platelet Volume 12.0 H Immature Granulocytes % 0.600 H Neutrophils % 64.8 Lymphocytes % 18.5 Monocytes % 10.9 Eosinophils % 4.4 Basophils % 0.8 Nucleated Red Blood 0.0 Cells % Immature Granulocytes # 0.040 H Neutrophils # 4.2 Lymphocytes # 1.2 Monocytes # 0.7 Eosinophils # 0.3 Basophils # 0.1 Nucleated Red Blood 0.0 Cells # Sodium Level 143 Potassium Level 3.3 L Chloride Level 100 Carbon Dioxide Level 30 Anion Gap 13 Blood Urea Nitrogen 63 H Creatinine 7.29 H Est Glomerular Filtrat 8 L Rate mL/min Glucose Level 103 # Calcium Level 8.2 L Bedside Glucose 117 106 Test 09/26/18 14:16 09/26/18 17:24 09/26/18 17:56 Bedside Glucose 96 81 Hemoglobin 8.1 L Hematocrit 24.9 L Medications Medication Current Medications Dextrose (D50w Syringe) ONCE PRN IV DECREASED GLUCOSE; Start 09/24/18 at 08:00 EZETIMIBE (Zetia) 10 mg DAILY PO ; Start 09/25/18 at 09:00 Folic Acid (Folic Acid) 1 mg DAILY PO ; Start 09/25/18 at 09:00 Multivit/Ca Carb/ B Cmplx/FA/Prenat (Isabel-Brenda) 1 tab DAILY PO ; Start 09/25/18 at 09:00 Sevelamer Carbonate (Renvela) 0.8 gm WITH MEALS PO Last administered on 09/26/18at 17:59; Admin Dose 0.8 GM; Start 09/24/18 at 17:55 IV Flush (NS 3 ml) 3 ml PER PROTOCOL IV ; Start 09/24/18 at 12:30 Ondansetron HCl (Zofran Tab) 4 mg Q6H PRN PO NAUSEA/VOMITING; Start 09/24/18 at 12:30 Acetaminophen (Tylenol Tab) 650 mg Q6H PRN PO .PAIN 1-3 OR TEMP; Start 09/24/18 at 12:30 Diagnostic Test (Pha) (Accu-Chek) 1 ea 02 XX Last administered on 09/25/18at 02:00; Admin Dose 1 EA; Start 09/25/18 at 02:00 Insulin Glargine (Lantus) 31 units DAILY@0800 SC Last administered on 09/26/18at 08:09; Admin Dose 31 UNITS; Start 09/24/18 at 12:30 Insulin Aspart (Novolog Insulin Pen) NOVOLOG *MILD* ALGORI... Q4 SC Last administered on 09/25/18at 12:50; Admin Dose 1 UNIT; Start 09/24/18 at 13:00 Pantoprazole 80 mg/Sodium Chloride 100 ml @ 10 mls/hr Q10H IV Last administered on 09/26/18at 17:59; Admin Dose 10 MLS/HR; Start 09/24/18 at 12:30 Miscellaneous Information 1 ea NOTE XX ; Start 09/24/18 at 13:30 Glucose (Glutose) 15 gm Q15M PRN PO DECREASED GLUCOSE; Start 09/24/18 at 13:30 Glucose (Glutose) 22.5 gm Q15M PRN PO DECREASED GLUCOSE; Start 09/24/18 at 13:30 Dextrose (D50w Syringe) 25 ml Q15M PRN IV DECREASED GLUCOSE; Start 09/24/18 at 13:30 Dextrose (D50w Syringe) 50 ml Q15M PRN IV DECREASED GLUCOSE; Start 09/24/18 at 13:30 Glucagon (Glucagen) 1 mg Q15M PRN IM DECREASED GLUCOSE; Start 09/24/18 at 13:30 Glucose (Glutose) 15 gm Q15M PRN BUCCAL DECREASED GLUCOSE; Start 09/24/18 at 13:30 Albumin Human 100 ml @ 100 mls/hr WITH DIALYSIS PRN IV SBP <90 DURING DIALYSIS; Start 09/24/18 at 18:30 Sodium Chloride (NS) -To prime the dialy... DIRECTED FOR HD PRN IV HD; Start 09/24/18 at 18:30 Ferric Sodium Gluconate Complex 125 mg/Sodium Chloride 100 ml @ 100 mls/hr DAILY@1300 IVPB Last administered on 09/26/18at 12:39; Admin Dose 100 MLS/HR; Start 09/25/18 at 13:00; Stop 09/27/18 at 13:59 Atorvastatin Calcium (Lipitor) 40 mg HS PO Last administered on 09/25/18at 20:09; Admin Dose 40 MG; Start 09/25/18 at 21:00 Pentoxifylline (Trental) 400 mg DAILY PO ; Start 09/27/18 at 09:00 Docusate Sodium/ Ferrous Fumarate (Les-Sequels) 1 tab BID PO ; Start 09/27/18 at 21:00 Furosemide (Lasix) 40 mg BID DIURETICS PO Last administered on 09/26/18at 17:59; Admin Dose 40 MG; Start 09/26/18 at 18:00 Ondansetron HCl (Zofran Inj) 4 mg PACU ORDER PRN IV NAUSEA/VOMITING; Start 09/26/18 at 15:30; Stop 09/26/18 at 19:30 RAQUEL MCDOWELL MD September 26, 2018 18:08
[2018-09-26] MEDS: ATORVASTATIN 40 MG TAB PO SCH (20:47)
[2018-09-27] VITALS (26 sets, daily range): BP systolic 110–155; BP diastolic 57–84; PULSE 41–95; RESP 16–20
[2018-09-27] MEDS: ACETAMINOPHEN 325 MG TAB PO PRN (00:31)
[2018-09-27] MEDS: INSULIN ASPART [NOVOLOG] 3 ML PEN SC SCH ×6 (01:00→20:43)
[2018-09-27] MEDS ORDERED: morphine 4 MG/ML VIAL IV STA (01:03)
[2018-09-27] MEDS: ACCU-CHEK XX SCH (01:47)
[2018-09-27] MEDS ORDERED: HYDROCODONE/APAP (5/325) TAB PO PRN (03:00)
[2018-09-27] MEDS: HYDROCODONE/APAP (5/325) TAB PO PRN (03:27)
[2018-09-27] MEDS: FUROSEMIDE 40 MG TAB PO SCH ×2 (05:09→17:14)
[2018-09-27] MEDS: PANTOPRAZOLE IV 80 MG in SOD CHLORIDE 0.9% 100 ML IV SCH ×2 (05:09→09:44)
[2018-09-27] MEDS: MULTIVIT/CA CARB/B CMPLX/FA TAB PO SCH (08:06)
[2018-09-27] MEDS: EZETIMIBE 10 MG TAB PO SCH (08:06)
[2018-09-27] MEDS: FOLIC ACID 1 MG TAB PO SCH (08:06)
[2018-09-27] MEDS: SEVELAMER CARBONATE 0.8 GM PKT PO SCH ×3 (08:07→17:14)
[2018-09-27] MEDS: PENTOXIFYLLINE (SR) 400 MG TAB PO SCH (08:07)
--- NOTE | 2018-09-27 08:08 | CONS ---
Assessment/Plan Assessment/Plan Assessment/Plan (Daily) 1. acute Hyperkalemia due to GI bleeding 2.Acute fluid overload with Uremia BUN 111 on admission 3. acute GI bleeding causing acute blood loss anemia 4. Severe Anemia with Hb 5.8 on admission 5. H/O HTN 6. H/O peripherla vascular disease 7. ESRD on HD Plan: s/p 5 units PRBC trnasfusion during this admission , Hb 11 , BP stable, S/p Status post EGD/colonoscopy 09/27/19 -Anastomosis ulcer -Normal colonoscopy HD schedule is MWF, will paln for HD tomorrow -follow up at [facility] cent[facility] rfor scheduled HD on MW pt is already on epogen in HD unit Lasix 40mg pO BID on discharge, stop metabolzone since pt is already on HD will follow up Consultation Date/Type/Reason Admit Date/Time September 24, 2018 at 08:08 Initial Consult Date 09/24/18 Type of Consult NEPHROLOGY Requesting Provider: DENZEL MICHAELS NP Date/Time of Note DATE: 09/27/18 TIME: 08:08 24 HR Interval Summary Free Text/Dictation s/p 5 units PRBC trnasfusion so far, Hb 11 , BP stable, S/p Status post EGD/colonoscopy 09/27/19 -Anastomosis ulcer -Normal colonoscopy Exam/Review of Systems Exam Vitals Vital Signs Date Temp Pulse Resp B/P (MAP) Pulse Ox O2 O2 Flow FiO2 Time Delivery Rate 09/27/18 79 08:03 09/27/18 98.0 16 131/64 98 Nasal 07:22 (86) Cannula 09/26/18 2.0 22:58 Intake and Output 09/26/18 09/26/18 09/27/18 1515:00 23:00 07:00 IntakeIntake Total 300 ml OutputOutput Total 3800 ml BalanceBalance -3800 ml 300 ml Exam Constitutional: Alert, awake no acute distress HEENT: [place] , Pale conjunctive, pale mucous membrane NECK: Supple without lymph node. CHEST: Slight wheezing on right upper lobe. HEART: S1, S2. Regular rate and rhythm. ABDOMEN: Soft/non tender with no rebound tenderness. Bowel sounds were present. EXTREMITIES: 3+edema on both LE NEUROLOGIC: Alert and oriented x3. No focal deficit. No sensory deficit. PSYCHOSOCIAL: No signs of depression. INTEGUMENTARY: left foot 3rd toe chronic ulcer. no oozing. Pale skin. Results Result Diagram: 09/27/18 0550 09/27/18 0551 Results 24hrs Laboratory Tests Test 09/26/18 12:40 09/26/18 13:52 09/26/18 14:16 09/26/18 17:24 Bedside Glucose 106 96 Hemoglobin 7.8 L 8.1 L Hematocrit 24.2 L 24.9 L Test 09/26/18 17:56 09/26/18 20:46 09/27/18 00:34 09/27/18 05:12 Bedside Glucose 81 133 199 Hemoglobin 10.1 #L Hematocrit 30.5 #L Test 09/27/18 05:50 09/27/18 05:51 09/27/18 08:05 White Blood Count 6.3 Red Blood Count 3.29 #L Hemoglobin 9.8 L Hematocrit 29.9 L Mean Corpuscular Volume 90.9 Mean Corpuscular 29.8 Hemoglobin Mean Corpuscular 32.8 Hemoglobin Concent Red Cell Distribution 18.6 H Width Platelet Count 199 Mean Platelet Volume 11.7 H Immature Granulocytes % 0.500 H Neutrophils % 65.1 Lymphocytes % 17.4 Monocytes % 11.8 H Eosinophils % 4.6 Basophils % 0.6 Nucleated Red Blood 0.0 Cells % Immature Granulocytes # 0.030 Neutrophils # 4.1 Lymphocytes # 1.1 Monocytes # 0.8 Eosinophils # 0.3 Basophils # 0.0 Nucleated Red Blood 0.0 Cells # Sodium Level 141 Potassium Level 3.8 Chloride Level 103 Carbon Dioxide Level 26 Anion Gap 12 Blood Urea Nitrogen 34 #H Creatinine 5.33 H Est Glomerular Filtrat 11 L Rate mL/min Glucose Level 186 Calcium Level 8.8 Hepatitis B Surface NEGATIVE Antigen Bedside Glucose 160 Medications Medication Current Medications Dextrose (D50w Syringe) ONCE PRN IV DECREASED GLUCOSE; Start 09/24/18 at 08:00 EZETIMIBE (Zetia) 10 mg DAILY PO ; Start 09/25/18 at 09:00 Folic Acid (Folic Acid) 1 mg DAILY PO ; Start 09/25/18 at 09:00 Multivit/Ca Carb/ B Cmplx/FA/Prenat (Isabel-Brenda) 1 tab DAILY PO ; Start 09/25/18 at 09:00 Sevelamer Carbonate (Renvela) 0.8 gm WITH MEALS PO Last administered on 09/26/18at 17:59; Admin Dose 0.8 GM; Start 09/24/18 at 17:55 IV Flush (NS 3 ml) 3 ml PER PROTOCOL IV ; Start 09/24/18 at 12:30 Ondansetron HCl (Zofran Tab) 4 mg Q6H PRN PO NAUSEA/VOMITING; Start 09/24/18 at 12:30 Acetaminophen (Tylenol Tab) 650 mg Q6H PRN PO .PAIN 1-3 OR TEMP Last administered on 09/27/18at 00:31; Admin Dose 650 MG; Start 09/24/18 at 12:30 Diagnostic Test (Pha) (Accu-Chek) 1 ea 02 XX Last administered on 09/25/18at 02:00; Admin Dose 1 EA; Start 09/25/18 at 02:00 Insulin Glargine (Lantus) 31 units DAILY@0800 SC Last administered on 09/26/18at 08:09; Admin Dose 31 UNITS; Start 09/24/18 at 12:30 Insulin Aspart (Novolog Insulin Pen) NOVOLOG *MILD* ALGORI... Q4 SC Last administered on 09/27/18at 05:36; Admin Dose 2 UNIT; Start 09/24/18 at 13:00 Pantoprazole 80 mg/Sodium Chloride 100 ml @ 10 mls/hr Q10H IV Last administered on 09/27/18at 05:09; Admin Dose 10 MLS/HR; Start 09/24/18 at 12:30 Miscellaneous Information 1 ea NOTE XX ; Start 09/24/18 at 13:30 Glucose (Glutose) 15 gm Q15M PRN PO DECREASED GLUCOSE; Start 09/24/18 at 13:30 Glucose (Glutose) 22.5 gm Q15M PRN PO DECREASED GLUCOSE; Start 09/24/18 at 13:30 Dextrose (D50w Syringe) 25 ml Q15M PRN IV DECREASED GLUCOSE; Start 09/24/18 at 13:30 Dextrose (D50w Syringe) 50 ml Q15M PRN IV DECREASED GLUCOSE; Start 09/24/18 at 13:30 Glucagon (Glucagen) 1 mg Q15M PRN IM DECREASED GLUCOSE; Start 09/24/18 at 13:30 Glucose (Glutose) 15 gm Q15M PRN BUCCAL DECREASED GLUCOSE; Start 09/24/18 at 13:30 Albumin Human 100 ml @ 100 mls/hr WITH DIALYSIS PRN IV SBP <90 DURING DIALYSIS; Start 09/24/18 at 18:30 Sodium Chloride (NS) -To prime the dialy... DIRECTED FOR HD PRN IV HD; Start 09/24/18 at 18:30 Ferric Sodium Gluconate Complex 125 mg/Sodium Chloride 100 ml @ 100 mls/hr DAILY@1300 IVPB Last administered on 09/26/18at 12:39; Admin Dose 100 MLS/HR; Start 09/25/18 at 13:00; Stop 09/27/18 at 13:59 Atorvastatin Calcium (Lipitor) 40 mg HS PO Last administered on 09/26/18at 20:47; Admin Dose 40 MG; Start 09/25/18 at 21:00 Pentoxifylline (Trental) 400 mg DAILY PO ; Start 09/27/18 at 09:00 Docusate Sodium/ Ferrous Fumarate (Les-Sequels) 1 tab BID PO ; Start 09/27/18 at 21:00 Furosemide (Lasix) 40 mg BID DIURETICS PO Last administered on 09/27/18at 05:09; Admin Dose 40 MG; Start 09/26/18 at 18:00 Acetaminophen/ Hydrocodone Bitart ([place] (5/325)) 1 tab Q4H PRN PO PAIN LEVEL 1-5; Start 09/27/18 at 03:00 Acetaminophen/ Hydrocodone Bitart ([place] (5/325)) 2 tab Q4H PRN PO PAIN LEVEL 6-10 Last administered on 09/27/18at 03:27; Admin Dose 2 TAB; Start 09/27/18 at 03:00 RAQUEL MCDOWELL MD September 27, 2018 08:08
[2018-09-27] MEDS: INSULIN GLARGINE [LANTus] (100 UNITS/ML) SYG SC SCH (09:11)
--- NOTE | 2018-09-27 12:36 | PN ---
Date/Time of Note Date/Time of Note DATE: 09/27/18 TIME: 12:30 Assessment/Plan VTE Prophylaxis Risk score (from Ns)>0 risk: 4 SCD applied (from [facility]): Yes Pharmacological prophylaxis: NA/contraindicated Pharm contraindication: bleeding Lines/Catheters IV Catheter Type (from [facility]): Peripheral IV Urinary Cath still in place: No Assessment/Plan Problems: (1) Severe anemia Status: Acute Comment: The patient and his son report that they were told they thought it ulcer on the upper endoscopy. He is on appropriate therapeutic for this and stable at this time. We will continue to follow along but if he does not show any evidence of rebleeding he will be able to be discharged back to his outpatient situation. (2) Type 2 diabetes mellitus with polyneuropathy Status: Chronic Comment: His blood sugar control is doing well at this time. (3) End stage renal disease on dialysis due to type 2 diabetes mellitus Status: Chronic Comment: As per nephrology.? The need for twice daily Lasix in a patient with end-stage renal disease on dialysis. Also input about whether or not we can use an CHRISTINA inhibitor for his hypertension and diastolic dysfunction (4) Peripheral vascular disease Status: Chronic Comment: Noted. He is on pentoxifylline once a day for this that dosage might be adjusted but that can be dealt with as an outpatient (5) COPD (chronic obstructive pulmonary disease) Status: Chronic Comment: Continue his medication regimen for this Qualifiers: COPD type: unspecified COPD Qualified Codes: J44.9 - Chronic obstructive pulmonary disease, unspecified (6) Fissure in skin of foot Status: Chronic Comment: Has been seen by podiatry for this and will follow-up in the [facility] (7) Coronary artery disease Status: Chronic Comment: Fortunately quiescent Qualifiers: Coronary Disease-Associated Artery/Lesion type: [place] artery [place] vs. transplanted heart: [place] heart Associated angina: without angina Qualified Codes: I25.10 - Atherosclerotic heart disease of [place] coronary artery without angina pectoris (8) Diastolic dysfunction Status: Chronic Comment: Noted, control of blood pressure. Consider CHRISTINA inhibitor since he is already on dialysis. Request nephrology input (9) Essential hypertension Status: Chronic Comment: Control blood pressure is adequate (10) Hyperuricemia Status: Chronic Comment: Noted. Result Diagram: 09/27/18 0550 09/27/18 0551 Results 24hrs Laboratory Tests Test 09/26/18 12:40 09/26/18 13:52 09/26/18 14:16 09/26/18 17:24 Bedside Glucose 106 96 Hemoglobin 7.8 L 8.1 L Hematocrit 24.2 L 24.9 L Test 09/26/18 17:56 09/26/18 20:46 09/27/18 00:34 09/27/18 05:12 Bedside Glucose 81 133 199 Hemoglobin 10.1 #L Hematocrit 30.5 #L Test 09/27/18 05:50 09/27/18 05:51 09/27/18 08:05 09/27/18 12:03 White Blood Count 6.3 Red Blood Count 3.29 #L Hemoglobin 9.8 L Hematocrit 29.9 L Mean Corpuscular Volume 90.9 Mean Corpuscular 29.8 Hemoglobin Mean Corpuscular 32.8 Hemoglobin Concent Red Cell Distribution 18.6 H Width Platelet Count 199 Mean Platelet Volume 11.7 H Immature Granulocytes % 0.500 H Neutrophils % 65.1 Lymphocytes % 17.4 Monocytes % 11.8 H Eosinophils % 4.6 Basophils % 0.6 Nucleated Red Blood 0.0 Cells % Immature Granulocytes # 0.030 Neutrophils # 4.1 Lymphocytes # 1.1 Monocytes # 0.8 Eosinophils # 0.3 Basophils # 0.0 Nucleated Red Blood 0.0 Cells # Sodium Level 141 Potassium Level 3.8 Chloride Level 103 Carbon Dioxide Level 26 Anion Gap 12 Blood Urea Nitrogen 34 #H Creatinine 5.33 H Est Glomerular Filtrat 11 L Rate mL/min Glucose Level 186 Calcium Level 8.8 Hepatitis B Surface NEGATIVE Antigen Bedside Glucose 160 180 CC: MARCK WILLINGHAM DPM; HERRERA WORRELL; RAQUEL MCDOWELL MD ; Subjective 24 Hr Interval Summary Free Text/Dictation Reports he is feeling a little bit better. He has had the endoscopy although there are no reports yet in the computer record Constitutional: no complaints Respiratory: no complaints Cardiovascular: no complaints Gastrointestinal: no complaints Exam/Review of Systems Exam Vitals Vital Signs Date Temp Pulse Resp B/P (MAP) Pulse Ox O2 O2 Flow FiO2 Time Delivery Rate 09/27/18 86 12:04 09/27/18 97.6 16 155/72 99 Nasal 11:53 (99) Cannula 09/26/18 2.0 22:58 Intake and Output 09/26/18 09/26/18 09/27/18 1515:00 23:00 07:00 IntakeIntake Total 300 ml OutputOutput Total 3800 ml BalanceBalance -3800 ml 300 ml Exam Older male lying in bed Constitutional: alert, oriented Respiratory: clear to auscultation, normal air movement Cardiovascular: regular rate and rhythm, nl pulses Gastrointestinal: soft, nl liver, spleen, non-tender Results Results 24hrs Laboratory Tests Test 09/26/18 12:40 09/26/18 13:52 09/26/18 14:16 09/26/18 17:24 Bedside Glucose 106 96 Hemoglobin 7.8 L 8.1 L Hematocrit 24.2 L 24.9 L Test 09/26/18 17:56 09/26/18 20:46 09/27/18 00:34 09/27/18 05:12 Bedside Glucose 81 133 199 Hemoglobin 10.1 #L Hematocrit 30.5 #L Test 09/27/18 05:50 09/27/18 05:51 09/27/18 08:05 09/27/18 12:03 White Blood Count 6.3 Red Blood Count 3.29 #L Hemoglobin 9.8 L Hematocrit 29.9 L Mean Corpuscular Volume 90.9 Mean Corpuscular 29.8 Hemoglobin Mean Corpuscular 32.8 Hemoglobin Concent Red Cell Distribution 18.6 H Width Platelet Count 199 Mean Platelet Volume 11.7 H Immature Granulocytes % 0.500 H Neutrophils % 65.1 Lymphocytes % 17.4 Monocytes % 11.8 H Eosinophils % 4.6 Basophils % 0.6 Nucleated Red Blood 0.0 Cells % Immature Granulocytes # 0.030 Neutrophils # 4.1 Lymphocytes # 1.1 Monocytes # 0.8 Eosinophils # 0.3 Basophils # 0.0 Nucleated Red Blood 0.0 Cells # Sodium Level 141 Potassium Level 3.8 Chloride Level 103 Carbon Dioxide Level 26 Anion Gap 12 Blood Urea Nitrogen 34 #H Creatinine 5.33 H Est Glomerular Filtrat 11 L Rate mL/min Glucose Level 186 Calcium Level 8.8 Hepatitis B Surface NEGATIVE Antigen Bedside Glucose 160 180 Medications Medication Current Medications Dextrose (D50w Syringe) ONCE PRN IV DECREASED GLUCOSE; Start 09/24/18 at 08:00 EZETIMIBE (Zetia) 10 mg DAILY PO Last administered on 09/27/18at 08:06; Admin Dose 10 MG; Start 09/25/18 at 09:00 Folic Acid (Folic Acid) 1 mg DAILY PO Last administered on 09/27/18 08:06; Admin Dose 1 MG; Start 09/25/18 at 09:00 Multivit/Ca Carb/ B Cmplx/FA/Prenat (Isabel-Brenda) 1 tab DAILY PO Last administered on 09/27/18 08:06; Admin Dose 1 TAB; Start 09/25/18 at 09:00 Sevelamer Carbonate (Renvela) 0.8 gm WITH MEALS PO Last administered on 9at 12:09; Admin Dose 0.8 GM; Start 09/24/18 at 17:55 IV Flush (NS 3 ml) 3 ml PER PROTOCOL IV ; Start 09/24/18 at 12:30 Ondansetron HCl (Zofran Tab) 4 mg Q6H PRN PO NAUSEA/VOMITING; Start 09/24/18 at 12:30 Acetaminophen (Tylenol Tab) 650 mg Q6H PRN PO .PAIN 1-3 OR TEMP Last administered on 09/27/18 00:31; Admin Dose 650 MG; Start 09/24/18 at 12:30 Diagnostic Test (Pha) (Accu-Chek) 1 ea 02 XX Last administered on 09/25/18 02:00; Admin Dose 1 EA; Start 09/25/18 at 02:00 Insulin Glargine (Lantus) 31 units DAILY@0800 SC Last administered on 09/27/18 09:11; Admin Dose 31 UNITS; Start 09/24/18 at 12:30 Insulin Aspart (Novolog Insulin Pen) NOVOLOG *MILD* ALGORI... Q4 SC Last administered on 09/27/18 12:12; Admin Dose 1 UNIT; Start 09/24/18 at 13:00 Pantoprazole 80 mg/Sodium Chloride 100 ml @ 10 mls/hr Q10H IV Last administered on 09/27/18 05:09; Admin Dose 10 MLS/HR; Start 09/24/18 at 12:30 Miscellaneous Information 1 ea NOTE XX ; Start 09/24/18 at 13:30 Glucose (Glutose) 15 gm Q15M PRN PO DECREASED GLUCOSE; Start 09/24/18 at 13:30 Glucose (Glutose) 22.5 gm Q15M PRN PO DECREASED GLUCOSE; Start 09/24/18 at 13:30 Dextrose (D50w Syringe) 25 ml Q15M PRN IV DECREASED GLUCOSE; Start 09/24/18 at 1 3:30 Dextrose (D50w Syringe) 50 ml Q15M PRN IV DECREASED GLUCOSE; Start 09/24/18 at 13:30 Glucagon (Glucagen) 1 mg Q15M PRN IM DECREASED GLUCOSE; Start 09/24/18 at 13:30 Glucose (Glutose) 15 gm Q15M PRN BUCCAL DECREASED GLUCOSE; Start 09/24/18 at 13:30 Albumin Human 100 ml @ 100 mls/hr WITH DIALYSIS PRN IV SBP <90 DURING DIALYSIS; Start 09/24/18 at 18:30 Sodium Chloride (NS) -To prime the dialy... DIRECTED FOR HD PRN IV HD; Start 09/24/18 at 18:30 Ferric Sodium Gluconate Complex 125 mg/Sodium Chloride 100 ml @ 100 mls/hr DAILY@1300 IVPB Last administered on 09/26/18at 12:39; Admin Dose 100 MLS/HR; Start 09/25/18 at 13:00; Stop 09/27/18 at 13:59 Atorvastatin Calcium (Lipitor) 40 mg HS PO Last administered on 09/26/18at 20:47; Admin Dose 40 MG; Start 09/25/18 at 21:00 Pentoxifylline (Trental) 400 mg DAILY PO Last administered on 09/27/18at 08:07; Admin Dose 400 MG; Start 09/27/18 at 09:00 Docusate Sodium/ Ferrous Fumarate (Les-Sequels) 1 tab BID PO ; Start 09/27/18 at 21:00 Furosemide (Lasix) 40 mg BID DIURETICS PO Last administered on 09/27/18at 05:09; Admin Dose 40 MG; Start 09/26/18 at 18:00 Acetaminophen/ Hydrocodone Bitart ([place] (5/325)) 1 tab Q4H PRN PO PAIN LEVEL 1-5; Start 09/27/18 at 03:00 Acetaminophen/ Hydrocodone Bitart ([place] (5/325)) 2 tab Q4H PRN PO PAIN LEVEL 6-10 Last administered on 09/27/18at 03:27; Admin Dose 2 TAB; Start 09/27/18 at 03:00 MARA GRAYSON MD September 27, 2018 12:36
[2018-09-27] MEDS: SOD FERRIC GLUC COMPLX 125 MG in SOD CHLORIDE 0.9% 100 ML IVPB SCH (13:37)
[2018-09-27] MEDS: ONDANSETRON 4 MG TAB PO PRN (13:41)
--- NOTE | 2018-09-27 14:53 | PN ---
Date/Time of Note Date/Time of Note DATE: 09/27/18 TIME: 14:45 Assessment/Plan VTE Prophylaxis Risk score (from Nsg)>0 risk: 4 SCD applied (from Ns): Yes Pharmacological prophylaxis: NA/contraindicated Pharm contraindication: bleeding Lines/Catheters IV Catheter Type (from Nrsg): Peripheral IV Urinary Cath still in place: No Assessment/Plan Assessment/Plan Assessment: Severe acute on chronic anemia Status post EGD/colonoscopy 09/26/2018 -Anastomosis ulcer -Normal colonoscopy Melena ESRD on HD DM Bilateral lower extremity atherosclerosis with left lower extremity third toe ulcer Hx of colonoscopy 05/12- suboptimal prep- no gross lesions- rec to f/u 6 months to 1 year Plan: Continue Protonix switch from drip to twice daily Monitor H/H transfuse for hgb less than 7.5 Patient seen in collaboration with Dr. Cardoza Subjective: Patient is feeling well. He reports decreased appetite. Tolerating the diet well. Denies abdominal pain, nausea or vomiting. No stool today. No evidence of upper GI bleeding. Hemoglobin is trending up. Will DC serial H&H and change Protonix drip to twice daily. Continue supportive treatment. PHYSICAL EXAMINATION: GENERAL: Well developed, well nourished, alert & oriented x 3, in no acute distress SKIN: No lesions, no stigmata chronic liver disease, no evidence of bleeding diathesis LYMPHATIC: No palpable lymphadenopathy. HEAD: Normocephalic, atraumatic, no tenderness. EYES: Pupils equal reactive to light and accommodation, full extraocular movements, sclera clear, non-icteric, no discharge. EARS/NOSE AND THROAT: Ears normal, nose normal, oropharynx normal, oral membranes well hydrated without lesions. NECK: Supple, no masses, thyroid normal, JVP within normal limits, carotids normal without bruits. CHEST: Inspection within normal limits. CARDIOVASCULAR: Heart: Regular rate and rhythm, no murmurs, gallops or rubs. Peripheral pulses present within normal limits, no cyanosis, clubbing or edemas. No pulsatile abdominal mass RESPIRATORY: Lungs clear to auscultation and percussion, no wheezing, no rubs GASTROINTESTINAL AND LIVER: Abdomen: Soft, non tenderness, non-distended, no hernias, no masses, no organomegaly, no ascites, no guarding, no rebound tenderness, normoactive bowel sounds. Rectal: Deferred. GENITOURINARY: [Male genitalia within normal limits. EXTREMITIES: No cyanosis, clubbing or edema. Result Diagram: 09/27/18 1323 09/27/18 0551 Results 24hrs Laboratory Tests Test 09/26/18 17:24 09/26/18 17:56 09/26/18 20:46 09/27/18 00:34 Hemoglobin 8.1 L 10.1 #L Hematocrit 24.9 L 30.5 #L Bedside Glucose 81 133 Test 09/27/18 05:12 09/27/18 05:50 09/27/18 05:51 09/27/18 08:05 Bedside Glucose 199 160 White Blood Count 6.3 Red Blood Count 3.29 #L Hemoglobin 9.8 L Hematocrit 29.9 L Mean Corpuscular Volume 90.9 Mean Corpuscular 29.8 Hemoglobin Mean Corpuscular 32.8 Hemoglobin Concent Red Cell Distribution 18.6 H Width Platelet Count 199 Mean Platelet Volume 11.7 H Immature Granulocytes % 0.500 H Neutrophils % 65.1 Lymphocytes % 17.4 Monocytes % 11.8 H Eosinophils % 4.6 Basophils % 0.6 Nucleated Red Blood 0.0 Cells % Immature Granulocytes # 0.030 Neutrophils # 4.1 Lymphocytes # 1.1 Monocytes # 0.8 Eosinophils # 0.3 Basophils # 0.0 Nucleated Red Blood 0.0 Cells # Sodium Level 141 Potassium Level 3.8 Chloride Level 103 Carbon Dioxide Level 26 Anion Gap 12 Blood Urea Nitrogen 34 #H Creatinine 5.33 H Est Glomerular Filtrat 11 L Rate mL/min Glucose Level 186 Calcium Level 8.8 Hepatitis B Surface NEGATIVE Antigen Test 09/27/18 12:03 09/27/18 13:23 Bedside Glucose 180 Hemoglobin 9.9 L Hematocrit 30.1 L CC: GERMÁN CARDOZA MD ; Exam/Review of Systems Exam Vitals Vital Signs Date Temp Pulse Resp B/P (MAP) Pulse Ox O2 O2 Flow FiO2 Time Delivery Rate 09/27/18 86 12:04 09/27/18 97.6 16 155/72 99 Nasal 11:53 (99) Cannula 09/26/18 2.0 22:58 Intake and Output 09/26/18 09/26/18 09/27/18 1515:00 23:00 07:00 IntakeIntake Total 300 ml OutputOutput Total 3800 ml BalanceBalance -3800 ml 300 ml Results Results 24hrs Laboratory Tests Test 09/26/18 17:24 09/26/18 17:56 09/26/18 20:46 09/27/18 00:34 Hemoglobin 8.1 L 10.1 #L Hematocrit 24.9 L 30.5 #L Bedside Glucose 81 133 Test 09/27/18 05:12 09/27/18 05:50 09/27/18 05:51 09/27/18 08:05 Bedside Glucose 199 160 White Blood Count 6.3 Red Blood Count 3.29 #L Hemoglobin 9.8 L Hematocrit 29.9 L Mean Corpuscular Volume 90.9 Mean Corpuscular 29.8 Hemoglobin Mean Corpuscular 32.8 Hemoglobin Concent Red Cell Distribution 18.6 H Width Platelet Count 199 Mean Platelet Volume 11.7 H Immature Granulocytes % 0.500 H Neutrophils % 65.1 Lymphocytes % 17.4 Monocytes % 11.8 H Eosinophils % 4.6 Basophils % 0.6 Nucleated Red Blood 0.0 Cells % Immature Granulocytes # 0.030 Neutrophils # 4.1 Lymphocytes # 1.1 Monocytes # 0.8 Eosinophils # 0.3 Basophils # 0.0 Nucleated Red Blood 0.0 Cells # Sodium Level 141 Potassium Level 3.8 Chloride Level 103 Carbon Dioxide Level 26 Anion Gap 12 Blood Urea Nitrogen 34 #H Creatinine 5.33 H Est Glomerular Filtrat 11 L Rate mL/min Glucose Level 186 Calcium Level 8.8 Hepatitis B Surface NEGATIVE Antigen Test 09/27/18 12:03 09/27/18 13:23 Bedside Glucose 180 Hemoglobin 9.9 L Hematocrit 30.1 L Medications Medication Current Medications Dextrose (D50w Syringe) ONCE PRN IV DECREASED GLUCOSE; Start 09/24/18 at 08:00 EZETIMIBE (Zetia) 10 mg DAILY PO Last administered on 09/27/18at 08:06; Admin Dose 10 MG; Start 09/25/18 at 09:00 Folic Acid (Folic Acid) 1 mg DAILY PO Last administered on 09/27/18at 08:06; Admin Dose 1 MG; Start 09/25/18 at 09:00 Multivit/Ca Carb/ B Cmplx/FA/Prenat (Isabel-Brenda) 1 tab DAILY PO Last administered on 09/27/18at 08:06; Admin Dose 1 TAB; Start 09/25/18 at 09:00 Sevelamer Carbonate (Renvela) 0.8 gm WITH MEALS PO Last administered on 09/27/18 12:09; Admin Dose 0.8 GM; Start 09/24/18 at 17:55 IV Flush (NS 3 ml) 3 ml PER PROTOCOL IV ; Start 09/24/18 at 12:30 Ondansetron HCl (Zofran Tab) 4 mg Q6H PRN PO NAUSEA/VOMITING Last administered on 09/27/18 13:41; Admin Dose 4 MG; Start 09/24/18 at 12:30 Acetaminophen (Tylenol Tab) 650 mg Q6H PRN PO .PAIN 1-3 OR TEMP Last administered on 09/27/18 00:31; Admin Dose 650 MG; Start 09/24/18 at 12:30 Diagnostic Test (Pha) (Accu-Chek) 1 ea 02 XX Last administered on 09/25/18 02:00; Admin Dose 1 EA; Start 09/25/18 at 02:00 Insulin Glargine (Lantus) 31 units DAILY@0800 SC Last administered on 09/27/18 09:11; Admin Dose 31 UNITS; Start 09/24/18 at 12:30 Insulin Aspart (Novolog Insulin Pen) NOVOLOG *MILD* ALGORI... Q4 SC Last administered on 09/27/18 12:12; Admin Dose 1 UNIT; Start 09/24/18 at 13:00 Pantoprazole 80 mg/Sodium Chloride 100 ml @ 10 mls/hr Q10H IV Last administered on 09/27/18 05:09; Admin Dose 10 MLS/HR; Start 09/24/18 at 12:30 Miscellaneous Information 1 ea NOTE XX ; Start 09/24/18 at 13:30 Glucose (Glutose) 15 gm Q15M PRN PO DECREASED GLUCOSE; Start 09/24/18 at 13:30 Glucose (Glutose) 22.5 gm Q15M PRN PO DECREASED GLUCOSE; Start 09/24/18 at 13:30 Dextrose (D50w Syringe) 25 ml Q15M PRN IV DECREASED GLUCOSE; Start 09/24/18 at 13:30 Dextrose (D50w Syringe) 50 ml Q15M PRN IV DECREASED GLUCOSE; Start 09/24/18 at 13:30 Glucagon (Glucagen) 1 mg Q15M PRN IM DECREASED GLUCOSE; Start 09/24/18 at 13:30 Glucose (Glutose) 15 gm Q15M PRN BUCCAL DECREASED GLUCOSE; Start 09/24/18 at 13:30 Albumin Human 100 ml @ 100 mls/hr WITH DIALYSIS PRN IV SBP <90 DURING DIALYSIS; Start 09/24/18 at 18:30 Sodium Chloride (NS) -To prime the dialy... DIRECTED FOR HD PRN IV HD; Start 09/24/18 at 18:30 Atorvastatin Calcium (Lipitor) 40 mg HS PO Last administered on 09/26/18at 20:47; Admin Dose 40 MG; Start 09/25/18 at 21:00 Pentoxifylline (Trental) 400 mg DAILY PO Last administered on 09/27/18at 08:07; Admin Dose 400 MG; Start 09/27/18 at 09:00 Docusate Sodium/ Ferrous Fumarate (Les-Sequels) 1 tab BID PO ; Start 09/27/18 at 21:00 Furosemide (Lasix) 40 mg BID DIURETICS PO Last administered on 09/27/18at 05:09; Admin Dose 40 MG; Start 09/26/18 at 18:00 Acetaminophen/ Hydrocodone Bitart ([place] (5/325)) 1 tab Q4H PRN PO PAIN LEVEL 1-5; Start 09/27/18 at 03:00 Acetaminophen/ Hydrocodone Bitart ([place] (5/325)) 2 tab Q4H PRN PO PAIN LEVEL 6-10 Last administered on 09/27/18at 03:27; Admin Dose 2 TAB; Start 09/27/18 at 03:00 JOSE CARMEN NP September 27, 2018 14:53
[2018-09-27] MEDS: PANTOPRAZOLE 40 MG INJ IV SCH (17:15)
--- NOTE | 2018-09-27 21:46 | PN ---
Date/Time of Note Date/Time of Note DATE: 09/27/18 TIME: 21:45 Assessment/Plan Lines/Catheters IV Catheter Type (from [facility]): Peripheral IV [place] in [facility] (from [facility]): No Assessment/Plan Chief Complaint/Hosp Course -No current vascular intervention at this time give GIB -LLE toe gangrene dry and stable -Will continue to monitor his progress Subjective 24 Hr Interval Summary Constitutional: no complaints Exam/Review of Systems Vital Signs Vitals Vital Signs Date Temp Pulse Resp B/P (MAP) Pulse Ox O2 O2 Flow FiO2 Time Delivery Rate 10/02/18 89 14 138/60 97 Room Air 09:00 (86) 10/02/18 98.3 07:00 09/29/18 4.0 09:10 Intake and Output 10/01/18 10/01/18 10/02/18 1414:59 22:59 06:59 IntakeIntake Total 440 ml 210 ml 100 ml OutputOutput Total 3850 ml 120 ml 0 ml BalanceBalance -3410 ml 90 ml 100 ml Exam Free Text/Dictation GENERAL: Alert and oriented x3, no apparent distress. HEENT: Normocephalic, atraumatic. Mucosa moist. NECK: Supple, no carotid bruit. PULMONARY: Clear to auscultation bilaterally. No crackles. CARDIOVASCULAR: S1, S2 present. Irregularly irregular. ABDOMEN: Soft, nontender, nondistended. Bowel sounds positive. Large truncal obesity. EXTREMITIES: Right lower extremity palpable femoral pulse, nonpalpable pedal pulse. Motor, sensory intact. Cap refill 3 to 4 seconds. Presence of varicose veins and large leg. Left lower extremity palpable femoral pulse, nonpalpable pedal pulse. Motor, sensory intact. Cap refill 3 to 4 seconds. Third toe gangrene site. First and second toe with previous bluish discoloration. It appears to be resolving.but becoming gangrene Varicose veins and edema of the left lower extremity with presence of mild lipodermatosclerosis. Left upper extremity: Palpable brachial pulse, motor and sensory intact, fistula with bruit and thrill present, sutures to be removed Results Result Diagram: 10/02/18 0449 10/02/18 0449 VANIA PEREYRA MD September 27, 2018 21:46
--- NOTE | 2018-09-27 21:47 | PN ---
Date/Time of Note Date/Time of Note DATE: 09/26/18 TIME: 19:30 late entry note Assessment/Plan Lines/Catheters IV Catheter Type (from Nrs): Peripheral IV [facility] (from [facility]): No Assessment/Plan Chief Complaint/Hosp Course -No current vascular intervention at this time give GIB -LLE toe gangrene dry and stable -Will continue to monitor his progress Subjective 24 Hr Interval Summary Constitutional: no complaints Exam/Review of Systems Vital Signs Vitals Vital Signs Date Temp Pulse Resp B/P (MAP) Pulse Ox O2 O2 Flow FiO2 Time Delivery Rate 10/02/18 89 14 138/60 97 Room Air 09:00 (86) 10/02/18 98.3 07:00 09/29/18 4.0 09:10 Intake and Output 10/01/18 10/01/18 10/02/18 1414:59 22:59 06:59 IntakeIntake Total 440 ml 210 ml 100 ml OutputOutput Total 3850 ml 120 ml 0 ml BalanceBalance -3410 ml 90 ml 100 ml Exam Free Text/Dictation GENERAL: Alert and oriented x3, no apparent distress. HEENT: Normocephalic, atraumatic. Mucosa moist. NECK: Supple, no carotid bruit. PULMONARY: Clear to auscultation bilaterally. No crackles. CARDIOVASCULAR: S1, S2 present. Irregularly irregular. ABDOMEN: Soft, nontender, nondistended. Bowel sounds positive. Large truncal obesity. EXTREMITIES: Right lower extremity palpable femoral pulse, nonpalpable pedal pulse. Motor, sensory intact. Cap refill 3 to 4 seconds. Presence of varicose veins and large leg. Left lower extremity palpable femoral pulse, nonpalpable pedal pulse. Motor, sensory intact. Cap refill 3 to 4 seconds. Third toe gangrene site. First and second toe with previous bluish discoloration. It appears to be resolving.but becoming gangrene Varicose veins and edema of the left lower extremity with presence of mild lipodermatosclerosis. Left upper extremity: Palpable brachial pulse, motor and sensory intact, fistula with bruit and thrill present, sutures to be removed Results Result Diagram: 10/02/18 0449 10/02/18 0449 VANIA PEREYRA MD September 27, 2018 21:47
[2018-09-27] MEDS: ATORVASTATIN 40 MG TAB PO SCH (23:38)
[2018-09-27] MEDS: FERROUS FUMARATE (SR) TAB PO SCH (23:38)
[2018-09-28] VITALS (16 sets, daily range): BP systolic 95–151; BP diastolic 52–75; PULSE 39–103; RESP 16–23
[2018-09-28] MEDS: INSULIN ASPART [NOVOLOG] 3 ML PEN SC SCH ×6 (00:53→20:53)
[2018-09-28] MEDS: ACCU-CHEK XX SCH (02:00)
[2018-09-28] MEDS ORDERED: NITROGLYCERIN (SL) 0.4 MG TAB ONE (03:18)
[2018-09-28] MEDS ORDERED: morphine 2 MG INJ IV STA ×3 (03:21→06:23)
[2018-09-28] MEDS: NITROGLYCERIN (SL) 0.4 MG TAB SL PRN ×4 (03:32→06:05)
[2018-09-28] MEDS ORDERED: LEVALBUTEROL (NEB) 1.25 MG/0.5 ML AMP HHN PRN (04:00)
[2018-09-28] MEDS ORDERED: IPRATROPIUM (HFA) 12.9 GM INHALER INH PRN (04:00)
[2018-09-28] MEDS: ACETAMINOPHEN 325 MG TAB PO PRN (04:34)
[2018-09-28] MEDS: PANTOPRAZOLE 40 MG INJ IV SCH ×2 (05:49→17:09)
[2018-09-28] MEDS: FUROSEMIDE 40 MG TAB PO SCH ×2 (05:50→17:09)
[2018-09-28] MEDS ORDERED: SOD CHLORIDE 0.9% 250 ML IV ONE (06:30)
[2018-09-28] MEDS: SEVELAMER CARBONATE 0.8 GM PKT PO SCH ×3 (07:24→17:09)
[2018-09-28] MEDS: FERROUS FUMARATE (SR) TAB PO SCH ×2 (08:14→20:53)
[2018-09-28] MEDS: EZETIMIBE 10 MG TAB PO SCH (08:14)
[2018-09-28] MEDS: PENTOXIFYLLINE (SR) 400 MG TAB PO SCH (08:14)
[2018-09-28] MEDS: MULTIVIT/CA CARB/B CMPLX/FA TAB PO SCH (08:14)
[2018-09-28] MEDS: FOLIC ACID 1 MG TAB PO SCH (08:14)
[2018-09-28] MEDS: INSULIN GLARGINE [LANTus] (100 UNITS/ML) SYG SC SCH (08:27)
--- NOTE | 2018-09-28 11:39 | CONS ---
Consult Date/Type/Reason Admit Date/Time September 24, 2018 at 08:08 Initial Consult Date 09/24/18 Requesting Provider: DENZEL MICHAELS NP Date/Time of Note DATE: 09/28/18 TIME: 11:31 Subjective Assessment/Plan Assessment/Plan Hospital Course (Demo Recall) Upper GI bleed: anemia, melena. He has a h/o PUD years ago. Exacerbated by Eliquis/plavix Anemia: due to above. s/p 2 units PRBCs [place]: Kaylee 1. Not on BB. No pauses or high grade block. 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 Possibly just restart plavix or ASA eventually as no h/o afib and remote DVT history -lipitor 40mg -no BB -lasix 40mg PO BID -HD per nephrology cp last pm no symptoms now egd reportedly shows anastomotic ulcer B2 Objective Vitals Vital Signs Date Temp Pulse Resp B/P (MAP) Pulse Ox O2 O2 Flow FiO2 Time Delivery Rate 09/28/18 80 08:02 09/28/18 98.6 18 151/75 98 Nasal 2.0 07:55 (100) Cannula Intake and Output 09/27/18 09/27/18 09/28/18 1515:00 23:00 07:00 IntakeIntake Total 1000 ml OutputOutput Total 3500 ml BalanceBalance 1000 ml -3500 ml Exam ncat chest clear cor rrr abd soft nontender ext diminished pulses Results/Medications Result Diagram: 09/28/18 0333 09/28/18 0333 Results 24 hrs Laboratory Tests Test 09/27/18 12:03 09/27/18 13:23 09/27/18 17:13 09/27/18 20:42 Bedside Glucose 180 224 H 134 Hemoglobin 9.9 L Hematocrit 30.1 L Test 09/28/18 00:44 09/28/18 03:01 09/28/18 03:33 09/28/18 04:34 Bedside Glucose 158 224 H 240 H White Blood Count 8.3 # Red Blood Count 3.68 L Hemoglobin 11.0 L Hematocrit 33.3 L Mean Corpuscular Volume 90.5 Mean Corpuscular 29.9 Hemoglobin Mean Corpuscular 33.0 Hemoglobin Concent Red Cell Distribution 17.8 H Width Platelet Count 198 Mean Platelet Volume 11.1 H Immature Granulocytes % 0.400 Neutrophils % 69.8 Lymphocytes % 15.2 Monocytes % 10.3 Eosinophils % 3.6 Basophils % 0.7 Nucleated Red Blood 0.0 Cells % Immature Granulocytes # 0.030 Neutrophils # 5.8 Lymphocytes # 1.3 Monocytes # 0.9 Eosinophils # 0.3 Basophils # 0.1 Nucleated Red Blood 0.0 Cells # Sodium Level 138 Potassium Level 4.4 Chloride Level 99 Carbon Dioxide Level 26 Anion Gap 13 Blood Urea Nitrogen 25 H Creatinine 4.82 H Est Glomerular Filtrat 12 L Rate mL/min Glucose Level 232 H Calcium Level 9.0 Creatine Kinase 65 Creatine Kinase Index 2.2 Creatinine Kinase MB 1.42 (Mass) Troponin I 1.090 *H Test 09/28/18 06:23 09/28/18 08:20 Creatine Kinase 74 Creatine Kinase Index 2.1 Creatinine Kinase MB 1.53 (Mass) Troponin I 1.060 *H Bedside Glucose 161 Home Meds Reported Medications Clopidogrel Bisulfate (Clopidogrel) 75 Mg Tablet, 75 MG PO DAILY, #30 TAB 09/24/18 Ezetimibe* (Zetia*) 10 Mg Tablet, 10 MG PO DAILY, TAB 08/29/18 Insulin Lispro (Humalog Kwikpen U-100) 100 Unit/1 Ml Insuln.pen, 0 SQ SLIDING SCALE, EA 08/28/18 Insulin Glargine* (Lantus*) 100 Unit/Ml Soln, 0 SC QHS, #1 VIAL 45-52 UNITS 08/28/18 Metolazone* (Metolazone*) 5 Mg Tablet, 10 MG PO BID, TAB 08/28/18 Multivit/Ca Carb/B Cmplx/Fa* (Isabel-Brenda*) 1 Tab Tab, 1 TAB PO DAILY, TAB 08/28/18 Furosemide* (Furosemide*) 80 Mg Tablet, 160 MG PO BID, #60 TAB 08/28/18 Folic Acid* (Folic Acid*) 1 Mg Tablet, 1 MG PO DAILY, TAB 08/28/18 Apixaban* (Eliquis*) 5 Mg Tablet, 5 MG PO BID, TAB 08/28/18 Sevelamer Carbonate* (Renvela*) 800 Mg Tablet, 0.8 GM PO WITH MEALS, TAB 08/28/18 Discontinued Scripts Clopidogrel Bisulfate (Clopidogrel) 75 Mg Tablet, 75 MG PO DAILY, #60 TAB Prov:LORI VINES 09/01/18 Medications Current Medications Dextrose (D50w Syringe) ONCE PRN IV DECREASED GLUCOSE; Start 09/24/18 at 08:00 EZETIMIBE (Zetia) 10 mg DAILY PO Last administered on 09/27/18 08:06; Admin Dose 10 MG; Start 09/25/18 at 09:00 Folic Acid (Folic Acid) 1 mg DAILY PO Last administered on 09/27/18 08:06; Admin Dose 1 MG; Start 09/25/18 at 09:00 Multivit/Ca Carb/ B Cmplx/FA/Prenat (Isabel-Brenda) 1 tab DAILY PO Last administered on 09/27/18 08:06; Admin Dose 1 TAB; Start 09/25/18 at 09:00 Sevelamer Carbonate (Renvela) 0.8 gm WITH MEALS PO Last administered on 09/27/18 17:14; Admin Dose 0.8 GM; Start 09/24/18 at 17:55 IV Flush (NS 3 ml) 3 ml PER PROTOCOL IV ; Start 09/24/18 at 12:30 Ondansetron HCl (Zofran Tab) 4 mg Q6H PRN PO NAUSEA/VOMITING Last administered on 09/27/18 13:41; Admin Dose 4 MG; Start 09/24/18 at 12:30 Acetaminophen (Tylenol Tab) 650 mg Q6H PRN PO .PAIN 1-3 OR TEMP Last administered on 09/28/18 04:34; Admin Dose 650 MG; Start 09/24/18 at 12:30 Diagnostic Test (Pha) (Accu-Chek) 1 ea 02 XX Last administered on 09/25/18at 0 2:00; Admin Dose 1 EA; Start 09/25/18 at 02:00 Insulin Glargine (Lantus) 31 units DAILY@0800 SC Last administered on 09/28/18 08:27; Admin Dose 31 UNITS; Start 09/24/18 at 12:30 Insulin Aspart (Novolog Insulin Pen) NOVOLOG *MILD* ALGORI... Q4 SC Last administered on 09/28/18at 04:39; Admin Dose 3 UNIT; Start 09/24/18 at 13:00 Miscellaneous Information 1 ea NOTE XX ; Start 09/24/18 at 13:30 Glucose (Glutose) 15 gm Q15M PRN PO DECREASED GLUCOSE; Start 09/24/18 at 13:30 Glucose (Glutose) 22.5 gm Q15M PRN PO DECREASED GLUCOSE; Start 09/24/18 at 13:30 Dextrose (D50w Syringe) 25 ml Q15M PRN IV DECREASED GLUCOSE; Start 09/24/18 at 13:30 Dextrose (D50w Syringe) 50 ml Q15M PRN IV DECREASED GLUCOSE; Start 09/24/18 at 13:30 Glucagon (Glucagen) 1 mg Q15M PRN IM DECREASED GLUCOSE; Start 09/24/18 at 13:30 Glucose (Glutose) 15 gm Q15M PRN BUCCAL DECREASED GLUCOSE; Start 09/24/18 at 13:30 Albumin Human 100 ml @ 100 mls/hr WITH DIALYSIS PRN IV SBP <90 DURING DIALYSIS; Start 09/24/18 at 18:30 Sodium Chloride (NS) -To prime the dialy... DIRECTED FOR HD PRN IV HD; Start 09/24/18 at 18:30 Atorvastatin Calcium (Lipitor) 40 mg HS PO Last administered on 09/27/18at 23:38; Admin Dose 40 MG; Start 09/25/18 at 21:00 Pentoxifylline (Trental) 400 mg DAILY PO Last administered on 09/27/18at 08:07; Admin Dose 400 MG; Start 09/27/18 at 09:00 Docusate Sodium/ Ferrous Fumarate (Les-Sequels) 1 tab BID PO Last admi nistered on 09/27/18at 23:38; Admin Dose 1 TAB; Start 09/27/18 at 21:00; Stop 10/27/18 at 20:59 Furosemide (Lasix) 40 mg BID DIURETICS PO Last administered on 09/27/18at 17:14; Admin Dose 40 MG; Start 09/26/18 at 18:00 Acetaminophen/ Hydrocodone Bitart ([place] (5/325)) 1 tab Q4H PRN PO PAIN LEVEL 1-5; Start 09/27/18 at 03:00 Acetaminophen/ Hydrocodone Bitart ([place] (5/325)) 2 tab Q4H PRN PO PAIN LEVEL 6-10 Last administered on 09/27/18at 03:27; Admin Dose 2 TAB; Start 09/27/18 at 03:00 Pantoprazole (Protonix Iv) 40 mg BID@06,18 IV Last administered on 09/28/18at 05:49; Admin Dose 40 MG; Start 09/27/18 at 18:00 Nitroglycerin (Nitroglycerin (Sl Tab) 0.4 Mg) 1 tab Q5M PRN SL ANGINA Last administered on 09/28/18at 06:05; Admin Dose 1 TAB; Start 09/28/18 at 03:30 Ipratropium [place] (Atrovent Hfa) 2 puff QID RESP THERAPY PRN INH SHORTNESS OF BREATH; Start 09/28/18 at 04:00 Levalbuterol (Xopenex Neb) 1.25 mg Q4H RESP THERAPY PRN HHN SHORTNESS OF BREATH; Start 09/28/18 at 04:00 Ascorbic Acid (Vitamin C) 500 mg BID PO ; Start 09/28/18 at 21:00; Stop 10/28/18 at 20:59; Status UNV Assessment/Plan Assessment/Plan (Daily) Assessment/Plan Assessment/Plan Hospital Course (Demo Recall) Upper GI bleed: anemia, melena. He has a h/o PUD years ago. Exacerbated by Eliquis/plavix Anemia: due to above. s/p 2 units PRBCs [place]: Kaylee 1. Not on BB. No pauses or high grade block. 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 Possibly just restart plavix or ASA eventually as no h/o afib and remote DVT history -lipitor 40mg -no BB -lasix 40mg PO BID -HD per nephrology new non stemi symptom free now maximize meds possible cath with poba if symptomatic will not heparinize now NICK ENCISO MD September 28, 2018 11:39
--- NOTE | 2018-09-28 11:54 | PN ---
Date/Time of Note Date/Time of Note DATE: 09/28/18 TIME: 11:27 Assessment/Plan VTE [place] [facility] [place]: 4 [place] [facility] [place] Yes Pharmacological prophylaxis: NA/contraindicated Pharm contraindication: bleeding Lines/Catheters IV Catheter Type (from [facility]): Peripheral IV Urinary Cath still in place: No Assessment/Plan Problems: (1) GI bleed Status: Acute Comment: Patient presently does not appear to have had any further hemorrhage. H&H are rising without transfusion. Continue careful observation. Due to the other issues I am going to add in 2 weeks of sucralfate. 6 weeks of aggressive ulcer intervention Qualifiers: GI bleed type/associated pathology: gastric ulcer Qualified Codes: K25.4 - Chronic or unspecified gastric ulcer with hemorrhage (2) Non-STEMI (non-ST elevated myocardial infarction) Status: Acute Comment: She has known coronary artery disease and peripheral vascular disease and also had an embolic phenomenon to his lower extremity. This is actually a tricky situation in that he has had a recent GI bleed. We need to get him is stabilized from both standpoints for as long as possible. If however he does start to have more cardiac issues were going to have to proceed aggressively. Appreciate cardiology's input (3) Peptic anastomotic ulcer Status: Acute Comment: As above (4) History of [place] II operation Status: Chronic Comment: Noted. This was a risk for recurrent ulcer disease. (5) Peripheral vascular disease Status: Chronic Comment: Noted. Vascular is involved in the care. (6) Type 2 diabetes mellitus with polyneuropathy Status: Chronic Comment: Adequate diabetic control under the current circumstances. (7) COPD (chronic obstructive pulmonary disease) Status: Chronic Comment: Stable at the present time Qualifiers: COPD type: unspecified COPD Qualified Codes: J44.9 - Chronic obstructive pulmonary disease, unspecified (8) Hyperuricemia Status: Chronic Comment: Stable at the present time (9) Essential hypertension Status: Chronic Comment: Adequate control especially with medications for protection for heart disease (10) Diastolic dysfunction Status: Chronic Comment: Adequate control (11) End stage renal disease on dialysis due to type 2 diabetes mellitus Status: Chronic Comment: As per nephrology (12) Hyperlipidemia associated with type 2 diabetes mellitus Status: Chronic Comment: On full dose statin therapy Result Diagram: 09/28/18 0333 09/28/18 0333 Results 24hrs Laboratory Tests Test 09/27/18 12:03 09/27/18 13:23 09/27/18 17:13 09/27/18 20:42 Bedside Glucose 180 224 H 134 Hemoglobin 9.9 L Hematocrit 30.1 L Test 09/28/18 00:44 09/28/18 03:01 09/28/18 03:33 09/28/18 04:34 Bedside Glucose 158 224 H 240 H White Blood Count 8.3 # Red Blood Count 3.68 L Hemoglobin 11.0 L Hematocrit 33.3 L Mean Corpuscular Volume 90.5 Mean Corpuscular 29.9 Hemoglobin Mean Corpuscular 33.0 Hemoglobin Concent Red Cell Distribution 17.8 H Width Platelet Count 198 Mean Platelet Volume 11.1 H Immature Granulocytes % 0.400 Neutrophils % 69.8 Lymphocytes % 15.2 Monocytes % 10.3 Eosinophils % 3.6 Basophils % 0.7 Nucleated Red Blood 0.0 Cells % Immature Granulocytes # 0.030 Neutrophils # 5.8 Lymphocytes # 1.3 Monocytes # 0.9 Eosinophils # 0.3 Basophils # 0.1 Nucleated Red Blood 0.0 Cells # Sodium Level 138 Potassium Level 4.4 Chloride Level 99 Carbon Dioxide Level 26 Anion Gap 13 Blood Urea Nitrogen 25 H Creatinine 4.82 H Est Glomerular Filtrat 12 L Rate mL/min Glucose Level 232 H Calcium Level 9.0 Creatine Kinase 65 Creatine Kinase Index 2.2 Creatinine Kinase MB 1.42 (Mass) Troponin I 1.090 *H Test 09/28/18 06:23 09/28/18 08:20 Creatine Kinase 74 Creatine Kinase Index 2.1 Creatinine Kinase MB 1.53 (Mass) Troponin I 1.060 *H Bedside Glucose 161 Subjective 24 Hr Interval Summary Free Text/Dictation Patient had episode of shortness of breath and chest pain last night now fully resolved. Please see cardiology note Constitutional: no complaints Respiratory: no complaints (Presently no complaints) Cardiovascular: no complaints (Episode of chest pain overnight) Gastrointestinal: no complaints Genitourinary: no complaints Musculoskeletal: other (Extremity pain) Exam/Review of Systems Exam Vitals Vital Signs Date Temp Pulse Resp B/P (MAP) Pulse Ox O2 O2 Flow FiO2 Time Delivery Rate 09/28/18 80 08:02 09/28/18 98.6 18 151/75 98 Nasal 2.0 07:55 (100) Cannula Intake and Output 09/27/18 09/27/18 09/28/18 1515:00 23:00 07:00 IntakeIntake Total 1000 ml OutputOutput Total 3500 ml BalanceBalance 1000 ml -3500 ml Constitutional: alert, oriented Respiratory: clear to auscultation, normal air movement Cardiovascular: regular rate and rhythm, nl pulses Gastrointestinal: soft, nl liver, spleen, non-tender Results Results 24hrs Laboratory Tests Test 09/27/18 12:03 09/27/18 13:23 09/27/18 17:13 09/27/18 20:42 Bedside Glucose 180 224 H 134 Hemoglobin 9.9 L Hematocrit 30.1 L Test 09/28/18 00:44 09/28/18 03:01 09/28/18 03:33 09/28/18 04:34 Bedside Glucose 158 224 H 240 H White Blood Count 8.3 # Red Blood Count 3.68 L Hemoglobin 11.0 L Hematocrit 33.3 L Mean Corpuscular Volume 90.5 Mean Corpuscular 29.9 Hemoglobin Mean Corpuscular 33.0 Hemoglobin Concent Red Cell Distribution 17.8 H Width Platelet Count 198 Mean Platelet Volume 11.1 H Immature Granulocytes % 0.400 Neutrophils % 69.8 Lymphocytes % 15.2 Monocytes % 10.3 Eosinophils % 3.6 Basophils % 0.7 Nucleated Red Blood 0.0 Cells % Immature Granulocytes # 0.030 Neutrophils # 5.8 Lymphocytes # 1.3 Monocytes # 0.9 Eosinophils # 0.3 Basophils # 0.1 Nucleated Red Blood 0.0 Cells # Sodium Level 138 Potassium Level 4.4 Chloride Level 99 Carbon Dioxide Level 26 Anion Gap 13 Blood Urea Nitrogen 25 H Creatinine 4.82 H Est Glomerular Filtrat 12 L Rate mL/min Glucose Level 232 H Calcium Level 9.0 Creatine Kinase 65 Creatine Kinase Index 2.2 Creatinine Kinase MB 1.42 (Mass) Troponin I 1.090 *H Test 09/28/18 06:23 09/28/18 08:20 Creatine Kinase 74 Creatine Kinase Index 2.1 Creatinine Kinase MB 1.53 (Mass) Troponin I 1.060 *H Bedside Glucose 161 Medications Medication Current Medications Dextrose (D50w Syringe) ONCE PRN IV DECREASED GLUCOSE; Start 09/24/18 at 08:00 EZETIMIBE (Zetia) 10 mg DAILY PO Last administered on 09/27/18 08:06; Admin Dose 10 MG; Start 09/25/18 at 09:00 Folic Acid (Folic Acid) 1 mg DAILY PO Last administered on 09/27/18 08:06; Admin Dose 1 MG; Start 09/25/18 at 09:00 Multivit/Ca Carb/ B Cmplx/FA/Prenat (Isabel-Brenda) 1 tab DAILY PO Last administered on 09/27/18 08:06; Admin Dose 1 TAB; Start 09/25/18 at 09:00 Sevelamer Carbonate (Renvela) 0.8 gm WITH MEALS PO Last administered on 09/27/18 17:14; Admin Dose 0.8 GM; Start 09/24/18 at 17:55 IV Flush (NS 3 ml) 3 ml PER PROTOCOL IV ; Start 09/24/18 at 12:30 Ondansetron HCl (Zofran Tab) 4 mg Q6H PRN PO NAUSEA/VOMITING Last administered on 09/27/18 13:41; Admin Dose 4 MG; Start 09/24/18 at 12:30 Acetaminophen (Tylenol Tab) 650 mg Q6H PRN PO .PAIN 1-3 OR TEMP Last administered on 09/28/18 04:34; Admin Dose 650 MG; Start 09/24/18 at 12:30 Diagnostic Test (Pha) (Accu-Chek) 1 ea 02 XX Last administered on 09/25/18 02:00; Admin Dose 1 EA; Start 09/25/18 at 02:00 Insulin Glargine (Lantus) 31 units DAILY@0800 SC Last administered on 09/28/18 08:27; Admin Dose 31 UNITS; Start 09/24/18 at 12:30 Insulin Aspart (Novolog Insulin Pen) NOVOLOG *MILD* ALGORI... Q4 SC Last administered on 09/28/18 04:39; Admin Dose 3 UNIT; Start 09/24/18 at 13:00 Miscellaneous Information 1 ea NOTE XX ; Start 09/24/18 at 13:30 Glucose (Glutose) 15 gm Q15M PRN PO DECREASED GLUCOSE; Start 09/24/18 at 13:30 Glucose (Glutose) 22.5 gm Q15M PRN PO DECREASED GLUCOSE; Start 09/24/18 at 13:30 Dextrose (D50w Syringe) 25 ml Q15M PRN IV DECREASED GLUCOSE; Start 09/24/18 at 13:30 Dextrose (D50w Syringe) 50 ml Q15M PRN IV DECREASED GLUCOSE; Start 09/24/18 at 13:30 Glucagon (Glucagen) 1 mg Q15M PRN IM DECREASED GLUCOSE; Start 09/24/18 at 13:30 Glucose (Glutose) 15 gm Q15M PRN BUCCAL DECREASED GLUCOSE; Start 09/24/18 at 13:30 Albumin Human 100 ml @ 100 mls/hr WITH DIALYSIS PRN IV SBP <90 DURING DIALYSIS; Start 09/24/18 at 18:30 Sodium Chloride (NS) -To prime the dialy... DIRECTED FOR HD PRN IV HD; Start 09/24/18 at 18:30 Atorvastatin Calcium (Lipitor) 40 mg HS PO Last administered on 09/27/18at 23:38; Admin Dose 40 MG; Start 09/25/18 at 21:00 Pentoxifylline (Trental) 400 mg DAILY PO Last administered on 09/27/18at 08:07; Admin Dose 400 MG; Start 09/27/18 at 09:00 Docusate Sodium/ Ferrous Fumarate (Les-Sequels) 1 tab BID PO Last administered on 09/27/18 23:38; Admin Dose 1 TAB; Start 09/27/18 at 21:00 Furosemide (Lasix) 40 mg BID DIURETICS PO Last administered on 09/27/18at 17:14; Admin Dose 40 MG; Start 09/26/18 at 18:00 Acetaminophen/ Hydrocodone Bitart ([place] (5/325)) 1 tab Q4H PRN PO PAIN LEVEL 1-5; Start 09/27/18 at 03:00 Acetaminophen/ Hydrocodone Bitart ([place] (5/325)) 2 tab Q4H PRN PO PAIN LEVEL 6-10 Last administered on 09/27/18at 03:27; Admin Dose 2 TAB; Start 09/27/18 at 03:00 Pantoprazole (Protonix Iv) 40 mg BID@06,18 IV Last administered on 09/28/18at 05:49; Admin Dose 40 MG; Start 09/27/18 at 18:00 Nitroglycerin (Nitroglycerin (Sl Tab) 0.4 Mg) 1 tab Q5M PRN SL ANGINA Last administered on 09/28/18at 06:05; Admin Dose 1 TAB; Start 09/28/18 at 03:30 Ipratropium [place] (Atrovent Hfa) 2 puff QID RESP THERAPY PRN INH SHORTNESS OF BREATH; Start 09/28/18 at 04:00 Levalbuterol (Xopenex Neb) 1.25 mg Q4H RESP THERAPY PRN HHN SHORTNESS OF BREATH; Start 09/28/18 at 04:00 MARA GRAYSON MD September 28, 2018 11:38
[2018-09-28] MEDS: METOPROLOL 25 MG TAB PO SCH ×2 (12:00→20:52)
[2018-09-28] MEDS: SUCRALFATE (100 MG/ML) 10ML CUP GTB SCH ×3 (12:52→20:52)
[2018-09-28] MEDS ORDERED: ISOSORBIDE DINITRATE (SA) 40 MG TAB PO SCH (13:00)
[2018-09-28] MEDS ORDERED: EPOETIN ALFA-EPBX (ESRD) 10,000 UNIT/ML VIAL SC ONE (13:00)
--- NOTE | 2018-09-28 14:29 | PN ---
Date/Time of Note Date/Time of Note DATE: 09/28/18 TIME: 14:25 Assessment/Plan VTE Prophylaxis Risk score (from Nsg)>0 risk: 4 SCD applied (from Nsg): Yes Pharmacological prophylaxis: NA/contraindicated Pharm contraindication: bleeding Lines/Catheters IV Catheter Type (from Nrsg): Peripheral IV Urinary Cath still in place: No Assessment/Plan Assessment/Plan Assessment: Severe acute on chronic anemia Status post EGD/colonoscopy 09/26/2018 -Anastomosis ulcer -Normal colonoscopy Melena ESRD on HD DM Bilateral lower extremity atherosclerosis with left lower extremity third toe ulcer Hx of colonoscopy 05/12- suboptimal prep- no gross lesions- rec to f/u 6 months to 1 year Plan: Continue Protonix switch from drip to twice daily Monitor H/H transfuse for hgb less than 7.5 Patient seen in collaboration with Dr. Cardoza Subjective: Patient is feeling well. Ambulating in the hallway. Tolerating the diet well. Denies abdominal pain, nausea or vomiting. No stool today. No evidence of upper GI bleeding. Hemoglobin is trending up. Scheduled for Angiogram tomorrow. Continue supportive treatment. PHYSICAL EXAMINATION: GENERAL: Well developed, well nourished, alert & oriented x 3, in no acute distress SKIN: No lesions, no stigmata chronic liver disease, no evidence of bleeding diathesis LYMPHATIC: No palpable lymphadenopathy. HEAD: Normocephalic, atraumatic, no tenderness. EYES: Pupils equal reactive to light and accommodation, full extraocular mo vements, sclera clear, non-icteric, no discharge. EARS/NOSE AND THROAT: Ears normal, nose normal, oropharynx normal, oral membranes well hydrated without lesions. NECK: Supple, no masses, thyroid normal, JVP within normal limits, carotids normal without bruits. CHEST: Inspection within normal limits. CARDIOVASCULAR: Heart: Regular rate and rhythm, no murmurs, gallops or rubs. Peripheral pulses present within normal limits, no cyanosis, clubbing or edemas. No pulsatile abdominal mass RESPIRATORY: Lungs clear to auscultation and percussion, no wheezing, no rubs GASTROINTESTINAL AND LIVER: Abdomen: Soft, non tenderness, non-distended, no hernias, no masses, no organomegaly, no ascites, no guarding, no rebound tenderness, normoactive bowel sounds. Rectal: Deferred. GENITOURINARY: [Male genitalia within normal limits. EXTREMITIES: No cyanosis, clubbing or edema. Result Diagram: 09/28/18 0333 09/28/18 0333 Results 24hrs Laboratory Tests Test 09/27/18 17:13 09/27/18 20:42 09/28/18 00:44 09/28/18 03:01 Bedside Glucose 224 H 134 158 224 H Test 09/28/18 03:33 09/28/18 04:34 09/28/18 06:23 09/28/18 08:20 White Blood Count 8.3 # Red Blood Count 3.68 L Hemoglobin 11.0 L Hematocrit 33.3 L Mean Corpuscular Volume 90.5 Mean Corpuscular 29.9 Hemoglobin Mean Corpuscular 33.0 Hemoglobin Concent Red Cell Distribution 17.8 H Width Platelet Count 198 Mean Platelet Volume 11.1 H Immature Granulocytes % 0.400 Neutrophils % 69.8 Lymphocytes % 15.2 Monocytes % 10.3 Eosinophils % 3.6 Basophils % 0.7 Nucleated Red Blood 0.0 Cells % Immature Granulocytes # 0.030 Neutrophils # 5.8 Lymphocytes # 1.3 Monocytes # 0.9 Eosinophils # 0.3 Basophils # 0.1 Nucleated Red Blood 0.0 Cells # Sodium Level 138 Potassium Level 4.4 Chloride Level 99 Carbon Dioxide Level 26 Anion Gap 13 Blood Urea Nitrogen 25 H Creatinine 4.82 H Est Glomerular Filtrat 12 L Rate mL/min Glucose Level 232 H Calcium Level 9.0 Creatine Kinase 65 74 Creatine Kinase Index 2.2 2.1 Creatinine Kinase MB 1.42 1.53 (Mass) Troponin I 1.090 *H 1.060 *H Bedside Glucose 240 H 161 Test 09/28/18 12:07 Bedside Glucose 133 CC: GERMÁN CARDOZA MD ; Exam/Review of Systems Exam Vitals Vital Signs Date Temp Pulse Resp B/P (MAP) Pulse Ox O2 O2 Flow FiO2 Time Delivery Rate 09/28/18 50 12:04 09/28/18 98.0 16 130/63 98 Nasal 2.0 11:52 (85) Cannula Intake and Output 09/27/18 09/27/18 09/28/18 1515:00 23:00 07:00 IntakeIntake Total 1000 ml OutputOutput Total 3500 ml BalanceBalance 1000 ml -3500 ml Results Results 24hrs Laboratory Tests Test 09/27/18 17:13 09/27/18 20:42 09/28/18 00:44 09/28/18 03:01 Bedside Glucose 224 H 134 158 224 H Test 09/28/18 03:33 09/28/18 04:34 09/28/18 06:23 09/28/18 08:20 White Blood Count 8.3 # Red Blood Count 3.68 L Hemoglobin 11.0 L Hematocrit 33.3 L Mean Corpuscular Volume 90.5 Mean Corpuscular 29.9 Hemoglobin Mean Corpuscular 33.0 Hemoglobin Concent Red Cell Distribution 17.8 H Width Platelet Count 198 Mean Platelet Volume 11.1 H Immature Granulocytes % 0.400 Neutrophils % 69.8 Lymphocytes % 15.2 Monocytes % 10.3 Eosinophils % 3.6 Basophils % 0.7 Nucleated Red Blood 0.0 Cells % Immature Granulocytes # 0.030 Neutrophils # 5.8 Lymphocytes # 1.3 Monocytes # 0.9 Eosinophils # 0.3 Basophils # 0.1 Nucleated Red Blood 0.0 Cells # Sodium Level 138 Potassium Level 4.4 Chloride Level 99 Carbon Dioxide Level 26 Anion Gap 13 Blood Urea Nitrogen 25 H Creatinine 4.82 H Est Glomerular Filtrat 12 L Rate mL/min Glucose Level 232 H Calcium Level 9.0 Creatine Kinase 65 74 Creatine Kinase Index 2.2 2.1 Creatinine Kinase MB 1.42 1.53 (Mass) Troponin I 1.090 *H 1.060 *H Bedside Glucose 240 H 161 Test 09/28/18 12:07 Bedside Glucose 133 Medications Medication Current Medications Dextrose (D50w Syringe) ONCE PRN IV DECREASED GLUCOSE; Start 09/24/18 at 08:00 EZETIMIBE (Zetia) 10 mg DAILY PO Last administered on 09/27/18at 08:06; Admin Dose 10 MG; Start 09/25/18 at 09:00 Folic Acid (Folic Acid) 1 mg DAILY PO Last administered on 09/27/18at 08:06; Admin Dose 1 MG; Start 09/25/18 at 09:00 Multivit/Ca Carb/ B Cmplx/FA/Prenat (Isabel-Brenda) 1 tab DAILY PO Last adminis tered on 09/27/18at 08:06; Admin Dose 1 TAB; Start 09/25/18 at 09:00 Sevelamer Carbonate (Renvela) 0.8 gm WITH MEALS PO Last administered on 09/28/18 12:55; Admin Dose 0.8 GM; Start 09/24/18 at 17:55 IV Flush (NS 3 ml) 3 ml PER PROTOCOL IV ; Start 09/24/18 at 12:30 Ondansetron HCl (Zofran Tab) 4 mg Q6H PRN PO NAUSEA/VOMITING Last administered on 09/27/18 13:41; Admin Dose 4 MG; Start 09/24/18 at 12:30 Acetaminophen (Tylenol Tab) 650 mg Q6H PRN PO .PAIN 1-3 OR TEMP Last administered on 09/28/18 04:34; Admin Dose 650 MG; Start 09/24/18 at 12:30 Diagnostic Test (Pha) (Accu-Chek) 1 ea 02 XX Last administered on 09/25/18at 02:00; Admin Dose 1 EA; Start 09/25/18 at 02:00 Insulin Glargine (Lantus) 31 units DAILY@0800 SC Last administered on 09/28/18at 08:27; Admin Dose 31 UNITS; Start 09/24/18 at 12:30 Insulin Aspart (Novolog Insulin Pen) NOVOLOG *MILD* ALGORI... Q4 SC Last administered on 09/28/18 04:39; Admin Dose 3 UNIT; Start 09/24/18 at 13:00 Miscellaneous Information 1 ea NOTE XX ; Start 09/24/18 at 13:30 Glucose (Glutose) 15 gm Q15M PRN PO DECREASED GLUCOSE; Start 09/24/18 at 13:30 Glucose (Glutose) 22.5 gm Q15M PRN PO DECREASED GLUCOSE; Start 09/24/18 at 13:30 Dextrose (D50w Syringe) 25 ml Q15M PRN IV DECREASED GLUCOSE; Start 09/24/18 at 13:30 Dextrose (D50w Syringe) 50 ml Q15M PRN IV DECREASED GLUCOSE; Start 09/24/18 at 13:30 Glucagon (Glucagen) 1 mg Q15M PRN IM DECREASED GLUCOSE; Start 09/24/18 at 13:30 Glucose (Glutose) 15 gm Q15M PRN BUCCAL DECREASED GLUCOSE; Start 09/24/18 at 1 3:30 Albumin Human 100 ml @ 100 mls/hr WITH DIALYSIS PRN IV SBP <90 DURING DIALYSIS; Start 09/24/18 at 18:30 Sodium Chloride (NS) -To prime the dialy... DIRECTED FOR HD PRN IV HD; Start 09/24/18 at 18:30 Atorvastatin Calcium (Lipitor) 40 mg HS PO Last administered on 09/27/18at 23:38; Admin Dose 40 MG; Start 09/25/18 at 21:00 Pentoxifylline (Trental) 400 mg DAILY PO Last administered on 09/27/18at 08:07; Admin Dose 400 MG; Start 09/27/18 at 09:00 Docusate Sodium/ Ferrous Fumarate (Les-Sequels) 1 tab BID PO Last administered on 09/27/18 23:38; Admin Dose 1 TAB; Start 09/27/18 at 21:00; Stop 10/27/18 at 20:59 Furosemide (Lasix) 40 mg BID DIURETICS PO Last administered on 09/27/18 17:14; Admin Dose 40 MG; Start 09/26/18 at 18:00 Acetaminophen/ Hydrocodone Bitart ([place] (5/325)) 1 tab Q4H PRN PO PAIN LEVEL 1-5; Start 09/27/18 at 03:00 Acetaminophen/ Hydrocodone Bitart ([place] (5/325)) 2 tab Q4H PRN PO PAIN LEVEL 6-10 Last administered on 09/27/18 03:27; Admin Dose 2 TAB; Start 09/27/18 at 03:00 Pantoprazole (Protonix Iv) 40 mg BID@06,18 IV Last administered on 09/28/18 05:49; Admin Dose 40 MG; Start 09/27/18 at 18:00 Nitroglycerin (Nitroglycerin (Sl Tab) 0.4 Mg) 1 tab Q5M PRN SL ANGINA Last administered on 09/28/18 06:05; Admin Dose 1 TAB; Start 09/28/18 at 03:30 Ipratropium [place] (Atrovent Hfa) 2 puff QID RESP THERAPY PRN INH SHORTNESS OF BREATH; Start 09/28/18 at 04:00 Levalbuterol (Xopenex Neb) 1.25 mg Q4H RESP THERAPY PRN HHN SHORTNESS OF BREATH; Start 09/28/18 at 04:00 Ascorbic Acid (Vitamin C) 500 mg BID PO ; Start 09/28/18 at 21:00; Stop 10/28/18 at 20:59 Sucralfate (Carafate Susp) 1 gm QID GTB Last administered on 09/28/18at 12:52; Admin Dose 1 GM; Start 09/28/18 at 13:00; Stop 10/12/18 at 12:59 Metoprolol Tartrate (Lopressor) 25 mg BID PO ; Start 09/28/18 at 12:00 Isosorbide Mononitrate (Imdur) 60 mg DAILY PO ; Start 09/28/18 at 15:00 JOSE CARMEN NP September 28, 2018 14:29
[2018-09-28] MEDS: ISOSORBIDE MONONITRATE(SR)60 MG TAB PO SCH (14:41)
--- NOTE | 2018-09-28 16:31 | CONS ---
Assessment/Plan Assessment/Plan Assessment/Plan (Daily) 1. acute Hyperkalemia due to GI bleeding 2.Acute fluid overload with Uremia BUN 111 on admission 3. acute GI bleeding causing acute blood loss anemia 4. Severe Anemia with Hb 5.8 on admission 5. H/O HTN 6. H/O peripheral vascular disease 7. ESRD on HD Plan: s/p 5 units PRBC transfusion during this admission , Hb 11 BP stable, S/p Status post EGD/colonoscopy 09/27/19 -Anastomosis ulcer -Normal colonoscopy HD schedule is [facility], will plan for HD Saturday -follow up at [facility] [place] for scheduled HD on [facility] pt is already on Epogen in HD unit Lasix 40mg pO BID on discharge metabolome stopped since pt is already on HD will follow up Patient is seen in collaboration with Dr Joby Tobar Consultation Date/Type/Reason Admit Date/Time September 24, 2018 at 08:08 Initial Consult Date 09/24/18 Reason for Consultation ESRD /HD Requesting Provider: DENZEL MICHAELS NP Date/Time of Note DATE: 09/28/18 TIME: 16:29 24 HR Interval Summary Constitutional: improved Detailed Summary Eyes: no complaints ENT: no complaints Respiratory: no complaints Cardiovascular: no complaints Gastrointestinal: no complaints Genitourinary: no complaints Musculoskeletal: other (Weakness) Skin: no complaints Neurologic: no complaints Endocrine: polyuria Psychological: nl mood/affect Exam/Review of Systems Exam Vitals Vital Signs Date Temp Pulse Resp B/P (MAP) Pulse Ox O2 O2 Flow FiO2 Time Delivery Rate 09/28/18 92 16:03 09/28/18 98.0 18 118/56 98 Nasal 3.0 15:45 (76) Cannula Intake and Output 09/27/18 09/27/18 09/28/18 1515:00 23:00 07:00 IntakeIntake Total 1000 ml OutputOutput Total 3500 ml BalanceBalance 1000 ml -3500 ml Constitutional: alert, well developed, obese Psych: nl mood/affect Head: atraumatic Eyes: nl lids, nl sclera ENMT: nl external ears & nose Respiratory: clear to auscultation Cardiovascular: nl pulses, other (s1s2) Gastrointestinal: soft, non-tender Musculoskeletal: muscle weakness Extremities: normal pulses 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: nl mental status, nl speech Skin: nl turgor Results Result Diagram: 09/28/18 0333 09/28/18 0333 Results 24hrs Laboratory Tests Test 09/27/18 17:13 09/27/18 20:42 09/28/18 00:44 09/28/18 03:01 Bedside Glucose 224 H 134 158 224 H Test 09/28/18 03:33 09/28/18 04:34 09/28/18 06:23 09/28/18 08:20 White Blood Count 8.3 # Red Blood Count 3.68 L Hemoglobin 11.0 L Hematocrit 33.3 L Mean Corpuscular Volume 90.5 Mean Corpuscular 29.9 Hemoglobin Mean Corpuscular 33.0 Hemoglobin Concent Red Cell Distribution 17.8 H Width Platelet Count 198 Mean Platelet Volume 11.1 H Immature Granulocytes % 0.400 Neutrophils % 69.8 Lymphocytes % 15.2 Monocytes % 10.3 Eosinophils % 3.6 Basophils % 0.7 Nucleated Red Blood 0.0 Cells % Immature Granulocytes # 0.030 Neutrophils # 5.8 Lymphocytes # 1.3 Monocytes # 0.9 Eosinophils # 0.3 Basophils # 0.1 Nucleated Red Blood 0.0 Cells # Sodium Level 138 Potassium Level 4.4 Chloride Level 99 Carbon Dioxide Level 26 Anion Gap 13 Blood Urea Nitrogen 25 H Creatinine 4.82 H Est Glomerular Filtrat 12 L Rate mL/min Glucose Level 232 H Calcium Level 9.0 Creatine Kinase 65 74 Creatine Kinase Index 2.2 2.1 Creatinine Kinase MB 1.42 1.53 (Mass) Troponin I 1.090 *H 1.060 *H Bedside Glucose 240 H 161 Test 09/28/18 12:07 09/28/18 14:11 Bedside Glucose 133 Creatine Kinase 52 Creatine Kinase Index 2.2 Creatinine Kinase MB 1.16 (Mass) Troponin I 0.859 *H Medications Medication Current Medications Dextrose (D50w Syringe) ONCE PRN IV DECREASED GLUCOSE; Start 09/24/18 at 08:00 EZETIMIBE (Zetia) 10 mg DAILY PO Last administered on 09/27/18at 08:06; Admin Dose 10 MG; Start 09/25/18 at 09:00 Folic Acid (Folic Acid) 1 mg DAILY PO Last administered on 09/27/18at 08:06; Admin Dose 1 MG; Start 09/25/18 at 09:00 Multivit/Ca Carb/ B Cmplx/FA/Prenat (Isabel-Brenda) 1 tab DAILY PO Last administered on 09/27/18 08:06; Admin Dose 1 TAB; Start 09/25/18 at 09:00 Sevelamer Carbonate (Renvela) 0.8 gm WITH MEALS PO Last administered on 09/28/18 12:55; Admin Dose 0.8 GM; Start 09/24/18 at 17:55 IV Flush (NS 3 ml) 3 ml PER PROTOCOL IV ; Start 09/24/18 at 12:30 Ondansetron HCl (Zofran Tab) 4 mg Q6H PRN PO NAUSEA/VOMITING Last administered on 09/27/18 13:41; Admin Dose 4 MG; Start 09/24/18 at 12:30 Acetaminophen (Tylenol Tab) 650 mg Q6H PRN PO .PAIN 1-3 OR TEMP Last administered on 09/28/18 04:34; Admin Dose 650 MG; Start 09/24/18 at 12:30 Diagnostic Test (Pha) (Accu-Chek) 1 ea 02 XX Last administered on 09/25/18at 02:00; Admin Dose 1 EA; Start 09/25/18 at 02:00 Insulin Glargine (Lantus) 31 units DAILY@0800 SC Last administered on 09/28/18 08:27; Admin Dose 31 UNITS; Start 09/24/18 at 12:30 Insulin Aspart (Novolog Insulin Pen) NOVOLOG *MILD* ALGORI... Q4 SC Last administered on 09/28/18 04:39; Admin Dose 3 UNIT; Start 09/24/18 at 13:00 Miscellaneous Information 1 ea NOTE XX ; Start 09/24/18 at 13:30 Glucose (Glutose) 15 gm Q15M PRN PO DECREASED GLUCOSE; Start 09/24/18 at 13:30 Glucose (Glutose) 22.5 gm Q15M PRN PO DECREASED GLUCOSE; Start 09/24/18 at 13:30 Dextrose (D50w Syringe) 25 ml Q15M PRN IV DECREASED GLUCOSE; Start 09/24/18 at 13:30 Dextrose (D50w Syringe) 50 ml Q15M PRN IV DECREASED GLUCOSE; Start 09/24/18 at 13:30 Glucagon (Glucagen) 1 mg Q15M PRN IM DECREASED GLUCOSE; Start 09/24/18 at 13:30 Glucose (Glutose) 15 gm Q15M PRN BUCCAL DECREASED GLUCOSE; Start 09/24/18 at 13:30 Albumin Human 100 ml @ 100 mls/hr WITH DIALYSIS PRN IV SBP <90 DURING DIALYSIS; Start 09/24/18 at 18:30 Sodium Chloride (NS) -To prime the dialy... DIRECTED FOR HD PRN IV HD; Start 09/24/18 at 18:30 Atorvastatin Calcium (Lipitor) 40 mg HS PO Last administered on 09/27/18 23:38; Admin Dose 40 MG; Start 09/25/18 at 21:00 Pentoxifylline (Trental) 400 mg DAILY PO Last administered on 09/27/18 08:07; Admin Dose 400 MG; Start 09/27/18 at 09:00 Docusate Sodium/ Ferrous Fumarate (Les-Sequels) 1 tab BID PO Last administered on 09/27/18 23:38; Admin Dose 1 TAB; Start 09/27/18 at 21:00; Stop 10/27/18 at 20:59 Furosemide (Lasix) 40 mg BID DIURETICS PO Last administered on 09/27/18 17:14; Admin Dose 40 MG; Start 09/26/18 at 18:00 Acetaminophen/ Hydrocodone Bitart ([place] (5/325)) 1 tab Q4H PRN PO PAIN LEVEL 1-5; Start 09/27/18 at 03:00 Acetaminophen/ Hydrocodone Bitart ([place] (5/325)) 2 tab Q4H PRN PO PAIN LEVEL 6-10 Last administered on 09/27/18 03:27; Admin Dose 2 TAB; Start 09/27/18 at 03:00 Pantoprazole (Protonix Iv) 40 mg BID@06,18 IV Last administered on 09/28/18 05:49; Admin Dose 40 MG; Start 09/27/18 at 18:00 Nitroglycerin (Nitroglycerin (Sl Tab) 0.4 Mg) 1 tab Q5M PRN SL ANGINA Last administered on 09/28/18 06:05; Admin Dose 1 TAB; Start 09/28/18 at 03:30 Ipratropium [place] (Atrovent Hfa) 2 puff QID RESP THERAPY PRN INH SHORTNESS OF BREATH; Start 09/28/18 at 04:00 Levalbuterol (Xopenex Neb) 1.25 mg Q4H RESP THERAPY PRN HHN SHORTNESS OF BREATH; Start 09/28/18 at 04:00 Ascorbic Acid (Vitamin C) 500 mg BID PO ; Start 09/28/18 at 21:00; Stop 10/28/18 at 20:59 Sucralfate (Carafate Susp) 1 gm QID GTB Last administered on 09/28/18at 12:52; Admin Dose 1 GM; Start 09/28/18 at 13:00; Stop 10/12/18 at 12:59 Metoprolol Tartrate (Lopressor) 25 mg BID PO ; Start 09/28/18 at 12:00 Isosorbide Mononitrate (Imdur) 60 mg DAILY PO Last administered on 09/28/18at 14:41; Admin Dose 60 MG; Start 09/28/18 at 15:00 CATARINA GONCALVES September 28, 2018 16:31
[2018-09-28] MEDS: ATORVASTATIN 40 MG TAB PO SCH (20:53)
[2018-09-28] MEDS: ASCORBIC ACID 500 MG TAB PO SCH (20:53)
[2018-09-29] VITALS (24 sets, daily range): BP systolic 106–153; BP diastolic 55–76; PULSE 37–95; RESP 18–20
[2018-09-29] MEDS: INSULIN ASPART [NOVOLOG] 3 ML PEN SC SCH ×6 (01:00→21:12)
[2018-09-29] MEDS: ACCU-CHEK XX SCH (02:00)
[2018-09-29] MEDS: PANTOPRAZOLE 40 MG INJ IV SCH ×2 (05:35→17:10)
[2018-09-29] MEDS: FUROSEMIDE 40 MG TAB PO SCH ×2 (05:40→17:10)
[2018-09-29] MEDS: MULTIVIT/CA CARB/B CMPLX/FA TAB PO SCH (08:26)
[2018-09-29] MEDS: SUCRALFATE (100 MG/ML) 10ML CUP GTB SCH ×4 (08:26→20:40)
[2018-09-29] MEDS: ASCORBIC ACID 500 MG TAB PO SCH ×2 (08:26→20:40)
[2018-09-29] MEDS: SEVELAMER CARBONATE 0.8 GM PKT PO SCH ×3 (08:26→17:10)
[2018-09-29] MEDS: FERROUS FUMARATE (SR) TAB PO SCH ×2 (08:26→20:41)
[2018-09-29] MEDS: FOLIC ACID 1 MG TAB PO SCH (08:26)
[2018-09-29] MEDS: ISOSORBIDE MONONITRATE(SR)60 MG TAB PO SCH (08:27)
[2018-09-29] MEDS: PENTOXIFYLLINE (SR) 400 MG TAB PO SCH (08:27)
[2018-09-29] MEDS: EZETIMIBE 10 MG TAB PO SCH (08:27)
[2018-09-29] MEDS: METOPROLOL 25 MG TAB PO SCH (08:27)
[2018-09-29] MEDS: INSULIN GLARGINE [LANTus] (100 UNITS/ML) SYG SC SCH (08:36)
[2018-09-29] MEDS ORDERED: ASPIRIN (EC) 325 MG TAB PO ONE (09:00)
--- NOTE | 2018-09-29 09:26 | RADRPT ---
Vent Rate: 91 bpm RR Interval: 660 msec [place] Interval: 247 msec QRS Duration: 125 msec QT Interval: 408 msec QTC Interval: 502 msec P-R-T [place]: 122 - -99 - 30 degrees Sinus rhythm...normal P axis, V-rate 50- 99 Prolonged NJ interval...NJ >215, V-rate 91-120 RBBB and LAFB...QRSd >120mS, axis(-40,240) Prolonged QT interval...QTc >500mS Electronically Signed By: Lucian Taveras
--- NOTE | 2018-09-29 09:51 | CONS ---
Assessment/Plan Assessment/Plan Hospital Course (Demo Recall) NSTEMI: chest pain 09/28 3 am and none in past 30 hours. Trop peak 1.1 and trended down. Difficult situation with recent significant GI bleed and anemia requiring 5 units transfusion. The risk of bleeding and further cardiac complications are being considered. I spoke with Dr. Forrest who did the procedure and we decided to have a trial of anticoagulation and antiplatelets to see if he would bleed again. If no bleeding, would be more likely to do well with anticoagulation and stenting if necessary. It is also very reassuring that he no longer has symptoms and trop trended down so we have time to manage him safely and avoid a life threatening complication like stent thrombosis should he need stenting and then bleeds. Upper GI bleed: due to anastomotic ulcer seen on EGD 09/26. No bleeding since Anemia: due to above. s/p 5 units PRBCs. Appears to be stable and recent drop today may not be accurate Kurt: Kaylee 1. Not on BB. No pauses or high grade block. 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 Now stopped DM ESRD on HD MWF HTN H/o [place] -start heparin drip -ASA 325mg now and 81mg daily -check hgb this evening -cath tomorrow at 1 pm -NPO after midnight -d/c metoprolol with bradycardia -continue imdur 60mg -lipitor 40mg -lasix 40mg PO BID -HD per nephrology Consultation Date/Type/Reason Admit Date/Time September 24, 2018 at 08:08 Initial Consult Date 09/24/18 Type of Consult Cardiology Requesting Provider: DENZEL MICHAELS NP Date/Time of Note DATE: 09/29/18 TIME: 09:40 24 HR Interval Summary Free Text/Dictation No chest pain since 09/28 3 am. Overall does not feel well but denies chest pain. Receiving HD currently. Able to clarify that he has not had a cardiac cath in 10+ years and sounds like maybe he had a stress test a few months ago. No bleeding per pt and has not had a BM in 2 days. Last BM was brown though. Hgb over last 3 days 10-->11-->9 Exam/Review of Systems Vital Signs Vitals Vital Signs Date Temp Pulse Resp B/P (MAP) Pulse Ox O2 O2 Flow FiO2 Time Delivery Rate 09/29/18 45 08:00 09/29/18 98.0 18 120/55 98 07:45 (76) 09/28/18 Nasal 3.0 15:45 Cannula Intake and Output 09/28/18 09/28/18 09/29/18 1515:00 23:00 07:00 IntakeIntake Total 350 ml 400 ml 300 ml BalanceBalance 350 ml 400 ml 300 ml Exam Constitutional: alert, oriented Psych: no complaints, nl mood/affect Head: normocephalic, atraumatic Neck: supple; No jvd Respiratory: diminished breath sounds; No clear to auscultation Cardiovascular: edema (trace), systolic murmur (2/6 GREGORY); No regular rate and rhythm Gastrointestinal: soft, non-tender; No distended 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: nl mental status, nl speech Labs Result Diagram: 09/29/18 0557 09/29/18 0557 Results 24hrs Laboratory Tests Test 09/28/18 12:07 09/28/18 14:11 09/28/18 17:08 09/28/18 20:49 Bedside Glucose 133 123 110 Creatine Kinase 52 Creatine Kinase 2.2 Index Creatinine Kinase 1.16 MB (Mass) Troponin I 0.859 *H Test 09/29/18 01:02 09/29/18 05:35 09/29/18 05:57 09/29/18 07:10 Bedside Glucose 91 89 White Blood Count 6.8 Red Blood Count 3.04 L Hemoglobin 9.1 L Hematocrit 27.9 L Mean Corpuscular 91.8 Volume Mean Corpuscular 29.9 Hemoglobin Mean Corpuscular 32.6 Hemoglobin Concent Red Cell 17.3 H Distribution Width Platelet Count 214 Mean Platelet 11.4 H Volume Immature 0.300 Granulocytes % Neutrophils % 58.9 Lymphocytes % 17.6 Monocytes % 13.9 H Eosinophils % 8.3 H Basophils % 1.0 Nucleated Red Blood 0.0 Cells % Immature 0.020 Granulocytes # Neutrophils # 4.0 Lymphocytes # 1.2 Monocytes # 0.9 Eosinophils # 0.6 H Basophils # 0.1 Nucleated Red Blood 0.0 Cells # Sodium Level 139 Potassium Level 3.6 Chloride Level 100 Carbon Dioxide 26 Level Anion Gap 13 Blood Urea Nitrogen 35 H Creatinine 7.40 #H Est Glomerular 7 L Filtrat Rate mL/min Glucose Level 86 # Calcium Level 8.4 Total Bilirubin 0.3 Direct Bilirubin 0.00 Indirect Bilirubin 0.3 Aspartate Amino 18 Transf (AST/SGOT) Alanine 16 Aminotransferase (A LT/SGPT) Alkaline 47 Phosphatase Total Protein 6.7 Albumin 3.4 Globulin 3.30 H Albumin/Globulin 1.03 Ratio Lab Scanned Report BLOOD TRANSFUSION Test 09/29/18 07:56 09/29/18 09:36 Bedside Glucose 84 108 Medications Medications Current Medications Dextrose (D50w Syringe) ONCE PRN IV DECREASED GLUCOSE; Start 09/24/18 at 08:00 EZETIMIBE (Zetia) 10 mg DAILY PO Last administered on 09/29/18 08:27; Admin Dose 10 MG; Start 09/25/18 at 09:00 Folic Acid (Folic Acid) 1 mg DAILY PO Last administered on 09/29/18 08:26; Admin Dose 1 MG; Start 09/25/18 at 09:00 Multivit/Ca Carb/ B Cmplx/FA/Prenat (Isabel-Brenda) 1 tab DAILY PO Last administered on 09/29/18 08:26; Admin Dose 1 TAB; Start 09/25/18 at 09:00 Sevelamer Carbonate (Renvela) 0.8 gm WITH MEALS PO Last administered on 09/29/18 08:26; Admin Dose 0.8 GM; Start 09/24/18 at 17:55 IV Flush (NS 3 ml) 3 ml PER PROTOCOL IV ; Start 09/24/18 at 12:30 Ondansetron HCl (Zofran Tab) 4 mg Q6H PRN PO NAUSEA/VOMITING Last administered on 09/27/18 13:41; Admin Dose 4 MG; Start 09/24/18 at 12:30 Acetaminophen (Tylenol Tab) 650 mg Q6H PRN PO .PAIN 1-3 OR TEMP Last administered on 09/28/18 04:34; Admin Dose 650 MG; Start 09/24/18 at 12:30 Diagnostic Test (Pha) (Accu-Chek) 1 ea 02 XX Last administered on 09/25/18 02 :00; Admin Dose 1 EA; Start 09/25/18 at 02:00 Insulin Glargine (Lantus) 31 units DAILY@0800 SC Last administered on 09/29/18 08:36; Admin Dose 31 UNITS; Start 09/24/18 at 12:30 Insulin Aspart (Novolog Insulin Pen) NOVOLOG *MILD* ALGORI... Q4 SC Last administered on 09/28/18at 04:39; Admin Dose 3 UNIT; Start 09/24/18 at 13:00 Miscellaneous Information 1 ea NOTE XX ; Start 09/24/18 at 13:30 Glucose (Glutose) 15 gm Q15M PRN PO DECREASED GLUCOSE; Start 09/24/18 at 13:30 Glucose (Glutose) 22.5 gm Q15M PRN PO DECREASED GLUCOSE; Start 09/24/18 at 13:30 Dextrose (D50w Syringe) 25 ml Q15M PRN IV DECREASED GLUCOSE; Start 09/24/18 at 13:30 Dextrose (D50w Syringe) 50 ml Q15M PRN IV DECREASED GLUCOSE; Start 09/24/18 at 13:30 Glucagon (Glucagen) 1 mg Q15M PRN IM DECREASED GLUCOSE; Start 09/24/18 at 13:30 Glucose (Glutose) 15 gm Q15M PRN BUCCAL DECREASED GLUCOSE; Start 09/24/18 at 13:30 Albumin Human 100 ml @ 100 mls/hr WITH DIALYSIS PRN IV SBP <90 DURING DIALYSIS; Start 09/24/18 at 18:30 Sodium Chloride (NS) -To prime the dialy... DIRECTED FOR HD PRN IV HD; Start 09/24/18 at 18:30 Atorvastatin Calcium (Lipitor) 40 mg HS PO Last administered on 09/28/18at 20:53; Admin Dose 40 MG; Start 09/25/18 at 21:00 Pentoxifylline (Trental) 400 mg DAILY PO Last administered on 09/29/18 08:27; Admin Dose 400 MG; Start 09/27/18 at 09:00 Docusate Sodium/ Ferrous Fumarate (Les-Sequels) 1 tab BID PO Last admin istered on 09/29/18 08:26; Admin Dose 1 TAB; Start 09/27/18 at 21:00; Stop 10/27/18 at 20:59 Furosemide (Lasix) 40 mg BID DIURETICS PO Last administered on 09/28/18at 17:09; Admin Dose 40 MG; Start 09/26/18 at 18:00 Acetaminophen/ Hydrocodone Bitart ([place] (5/325)) 1 tab Q4H PRN PO PAIN LEVEL 1-5; Start 09/27/18 at 03:00 Acetaminophen/ Hydrocodone Bitart ([place] (5/325)) 2 tab Q4H PRN PO PAIN LEVEL 6 -10 Last administered on 09/27/18 03:27; Admin Dose 2 TAB; Start 09/27/18 at 03:00 Pantoprazole (Protonix Iv) 40 mg BID@06,18 IV Last administered on 09/29/18 05:35; Admin Dose 40 MG; Start 09/27/18 at 18:00 Nitroglycerin (Nitroglycerin (Sl Tab) 0.4 Mg) 1 tab Q5M PRN SL ANGINA Last administered on 09/28/18 06:05; Admin Dose 1 TAB; Start 09/28/18 at 03:30 Ipratropium [place] (Atrovent Hfa) 2 puff QID RESP THERAPY PRN INH SHORTNESS OF BREATH; Start 09/28/18 at 04:00 Levalbuterol (Xopenex Neb) 1.25 mg Q4H RESP THERAPY PRN HHN SHORTNESS OF BREATH; Start 09/28/18 at 04:00 Ascorbic Acid (Vitamin C) 500 mg BID PO Last administered on 09/29/18 08:26; Admin Dose 500 MG; Start 09/28/18 at 21:00; Stop 10/28/18 at 20:59 Sucralfate (Carafate Susp) 1 gm QID GTB Last administered on 09/29/18 08:26; Admin Dose 1 GM; Start 09/28/18 at 13:00; Stop 10/12/18 at 12:59 Isosorbide Mononitrate (Imdur) 60 mg DAILY PO Last administered on 09/29/18 08:27; Admin Dose 60 MG; Start 09/28/18 at 15:00 Aspirin (Ecotrin) 325 mg ONCE ONCE PO ; Start 09/29/18 at 09:00; Stop 09/29/18 at 09:01; Status LAVON TUCKER September 29, 2018 09:51
[2018-09-29] MEDS ORDERED: HEPARIN 1000 UNITS/ML 10 ML INJ IV ONE (10:00)
[2018-09-29] MEDS ORDERED: HEPARIN 1000 UNITS/ML 10 ML INJ IV PRN (10:00)
[2018-09-29] MEDS: HEPARIN 25000 UNITS/250 ML 250 ML IV SCH (10:35)
--- NOTE | 2018-09-29 12:14 | CONS ---
Assessment/Plan Assessment/Plan Assessment/Plan (Daily) 1. acute Hyperkalemia due to GI bleeding 2.Acute fluid overload with Uremia BUN 111 on admission 3. acute GI bleeding causing acute blood loss anemia 4. Severe Anemia with Hb 5.8 on admission 5. H/O HTN 6. H/O peripherla vascular disease 7. ESRD on HD Plan: s/p 5 units PRBC trnasfusion during this admission , Hb 11 , BP stable, S/p Status post EGD/colonoscopy 09/27/19 -Anastomosis ulcer -Normal colonoscopy s/p HD today 3 L removed, -follow up at [facility] rfor scheduled HD on MWF plan for [facility] tomorrow , post cath pt will go to ICU Lasix 40mg pO BID on discharge, stop metabolzone since pt is already on HD will follow up Consultation Date/Type/Reason Admit Date/Time September 24, 2018 at 08:08 Initial Consult Date 09/24/18 Type of Consult NEPHROLOGY Requesting Provider: DENZEL MICHAELS NP Date/Time of Note DATE: 09/29/18 TIME: 12:14 Exam/Review of Systems Exam Vitals Vital Signs Date Temp Pulse Resp B/P (MAP) Pulse Ox O2 O2 Flow FiO2 Time Delivery Rate 09/29/18 77 12:00 09/29/18 20 117/60 98 Nasal 4.0 09:10 (79) Cannula 09/29/18 98.0 07:45 Intake and Output 09/28/18 09/28/18 09/29/18 1515:00 23:00 07:00 IntakeIntake Total 350 ml 400 ml 300 ml BalanceBalance 350 ml 400 ml 300 ml Results Result Diagram: 09/29/18 0959 09/29/18 0557 Results 24hrs Laboratory Tests Test 09/28/18 14:11 09/28/18 17:08 09/28/18 20:49 09/29/18 01:02 Creatine Kinase 52 Creatine Kinase 2.2 Index Creatinine Kinase 1.16 MB (Mass) Troponin I 0.859 *H Bedside Glucose 123 110 91 Test 09/29/18 05:35 09/29/18 05:57 09/29/18 07:10 09/29/18 07:56 Bedside Glucose 89 84 White Blood Count 6.8 Red Blood Count 3.04 L Hemoglobin 9.1 L Hematocrit 27.9 L Mean Corpuscular 91.8 Volume Mean Corpuscular 29.9 Hemoglobin Mean Corpuscular 32.6 Hemoglobin Concent Red Cell 17.3 H Distribution Width Platelet Count 214 Mean Platelet 11.4 H Volume Immature 0.300 Granulocytes % Neutrophils % 58.9 Lymphocytes % 17.6 Monocytes % 13.9 H Eosinophils % 8.3 H Basophils % 1.0 Nucleated Red Blood 0.0 Cells % Immature 0.020 Granulocytes # Neutrophils # 4.0 Lymphocytes # 1.2 Monocytes # 0.9 Eosinophils # 0.6 H Basophils # 0.1 Nucleated Red Blood 0.0 Cells # Sodium Level 139 Potassium Level 3.6 Chloride Level 100 Carbon Dioxide 26 Level Anion Gap 13 Blood Urea Nitrogen 35 H Creatinine 7.40 #H Est Glomerular 7 L Filtrat Rate mL/min Glucose Level 86 # Calcium Level 8.4 Total Bilirubin 0.3 Direct Bilirubin 0.00 Indirect Bilirubin 0.3 Aspartate Amino 18 Transf (AST/SGOT) Alanine 16 Aminotransferase (A LT/SGPT) Alkaline 47 Phosphatase Total Protein 6.7 Albumin 3.4 Globulin 3.30 H Albumin/Globulin 1.03 Ratio Lab Scanned Report BLOOD TRANSFUSION Test 09/29/18 09:36 09/29/18 09:59 09/29/18 12:08 Bedside Glucose 108 91 White Blood Count 6.5 Red Blood Count 3.21 L Hemoglobin 9.5 L Hematocrit 29.4 L Mean Corpuscular 91.6 Volume Mean Corpuscular 29.6 Hemoglobin Mean Corpuscular 32.3 Hemoglobin Concent Red Cell 16.9 H Distribution Width Platelet Count 209 Mean Platelet 11.5 H Volume Immature 0.500 H Granulocytes % Neutrophils % 68.6 Lymphocytes % 14.9 L Monocytes % 8.3 Eosinophils % 6.6 Basophils % 1.1 Nucleated Red Blood 0.0 Cells % Immature 0.030 Granulocytes # Neutrophils # 4.5 Lymphocytes # 1.0 Monocytes # 0.5 Eosinophils # 0.4 Basophils # 0.1 Nucleated Red Blood 0.0 Cells # Prothrombin Time 13.2 Prothrombin Time 1.0 Ratio INR International 0.99 Normalized Ratio Activated 35.8 H Partial Thromboplas t Time Medications Medication Current Medications Dextrose (D50w Syringe) ONCE PRN IV DECREASED GLUCOSE; Start 09/24/18 at 08:00 EZETIMIBE (Zetia) 10 mg DAILY PO Last administered on 5/6/19at 08:27; Admin Dose 10 MG; Start 09/25/18 at 09:00 Folic Acid (Folic Acid) 1 mg DAILY PO Last administered on 09/29/18 08:26; Admin Dose 1 MG; Start 09/25/18 at 09:00 Multivit/Ca Carb/ B Cmplx/FA/Prenat (Isabel-Brenda) 1 tab DAILY PO Last administered on 09/29/18 08:26; Admin Dose 1 TAB; Start 09/25/18 at 09:00 Sevelamer Carbonate (Renvela) 0.8 gm WITH MEALS PO Last administered on 09/29/18 12:12; Admin Dose 0.8 GM; Start 09/24/18 at 17:55 IV Flush (NS 3 ml) 3 ml PER PROTOCOL IV ; Start 09/24/18 at 12:30 Ondansetron HCl (Zofran Tab) 4 mg Q6H PRN PO NAUSEA/VOMITING Last administered on 09/27/18 13:41; Admin Dose 4 MG; Start 09/24/18 at 12:30 Acetaminophen (Tylenol Tab) 650 mg Q6H PRN PO .PAIN 1-3 OR TEMP Last administered on 09/28/18 04:34; Admin Dose 650 MG; Start 09/24/18 at 12:30 Diagnostic Test (Pha) (Accu-Chek) 1 ea 02 XX Last administered on 09/25/18 02:00; Admin Dose 1 EA; Start 09/25/18 at 02:00 Insulin Glargine (Lantus) 31 units DAILY@0800 SC Last administered on 09/29/18 08:36; Admin Dose 31 UNITS; Start 09/24/18 at 12:30 Insulin Aspart (Novolog Insulin Pen) NOVOLOG *MILD* ALGORI... Q4 SC Last administered on 09/28/18 04:39; Admin Dose 3 UNIT; Start 09/24/18 at 13:00 Miscellaneous Information 1 ea NOTE XX ; Start 09/24/18 at 13:30 Glucose (Glutose) 15 gm Q15M PRN PO DECREASED GLUCOSE; Start 09/24/18 at 13:30 Glucose (Glutose) 22.5 gm Q15M PRN PO DECREASED GLUCOSE; Start 09/24/18 at 13:30 Dextrose (D50w Syringe) 25 ml Q15M PRN IV DECREASED GLUCOSE; Start 09/24/18 at 13:30 Dextrose (D50w Syringe) 50 ml Q15M PRN IV DECREASED GLUCOSE; Start 09/24/18 at 13:30 Glucagon (Glucagen) 1 mg Q15M PRN IM DECREASED GLUCOSE; Start 09/24/18 at 13:30 Glucose (Glutose) 15 gm Q15M PRN BUCCAL DECREASED GLUCOSE; Start 09/24/18 at 13:30 Albumin Human 100 ml @ 100 mls/hr WITH DIALYSIS PRN IV SBP <90 DURING DIALYSIS; Start 09/24/18 at 18:30 Sodium Chloride (NS) -To prime the dialy... DIRECTED FOR HD PRN IV HD; Start 09/24/18 at 18:30 Atorvastatin Calcium (Lipitor) 40 mg HS PO Last administered on 09/28/18at 20:53; Admin Dose 40 MG; Start 09/25/18 at 21:00 Pentoxifylline (Trental) 400 mg DAILY PO Last administered on 09/29/18 08:27; Admin Dose 400 MG; Start 09/27/18 at 09:00 Docusate Sodium/ Ferrous Fumarate (Les-Sequels) 1 tab BID PO Last administered on 09/29/18 08:26; Admin Dose 1 TAB; Start 09/27/18 at 21:00; Stop 10/27/18 at 20:59 Furosemide (Lasix) 40 mg BID DIURETICS PO Last administered on 09/28/18 17:09; Admin Dose 40 MG; Start 09/26/18 at 18:00 Acetaminophen/ Hydrocodone Bitart ([place] (5/325)) 1 tab Q4H PRN PO PAIN LEVEL 1-5; Start 09/27/18 at 03:00 Acetaminophen/ Hydrocodone Bitart ([place] (5/325)) 2 tab Q4H PRN PO PAIN LEVEL 6-10 Last administered on 09/27/18at 03:27; Admin Dose 2 TAB; Start 09/27/18 at 03:00 Pantoprazole (Protonix Iv) 40 mg BID@06,18 IV Last administered on 09/29/18 05:35; Admin Dose 40 MG; Start 09/27/18 at 18:00 Nitroglycerin (Nitroglycerin (Sl Tab) 0.4 Mg) 1 tab Q5M PRN SL ANGINA Last administered on 09/28/18at 06:05; Admin Dose 1 TAB; Start 09/28/18 at 03:30 Ipratropium [place] (Atrovent Hfa) 2 puff QID RESP THERAPY PRN INH SHORTNESS OF BREATH; Start 09/28/18 at 04:00 Levalbuterol (Xopenex Neb) 1.25 mg Q4H RESP THERAPY PRN HHN SHORTNESS OF BREATH; Start 09/28/18 at 04:00 Ascorbic Acid (Vitamin C) 500 mg BID PO Last administered on 09/29/18at 08:26; Admin Dose 500 MG; Start 09/28/18 at 21:00; Stop 10/28/18 at 20:59 Sucralfate (Carafate Susp) 1 gm QID GTB Last administered on 09/29/18at 12:12; Admin Dose 1 GM; Start 09/28/18 at 13:00; Stop 10/12/18 at 12:59 Isosorbide Mononitrate (Imdur) 60 mg DAILY PO Last administered on 09/29/18at 08:27; Admin Dose 60 MG; Start 09/28/18 at 15:00 Heparin Sodium (Porcine) (Heparin (1000 Units/ml)) 4,000 unit PER PROTOCOL PRN IV aPTT<47; Start 09/29/18 at 10:00 Heparin Sodium (Porcine) 250 ml @ 0 mls/hr PER PROTOCOL IV Last administered on 09/29/18at 10:35; Admin Dose 12.5 MLS/HR; Start 09/29/18 at 10:00 Aspirin (Aspirin) 81 mg DAILY PO ; Start 09/30/18 at 09:00 RAQUEL MCDOWELL MD September 29, 2018 12:14
--- NOTE | 2018-09-29 13:47 | PN ---
Date/Time of Note Date/Time of Note DATE: 09/29/18 TIME: 13:40 Assessment/Plan VTE Prophylaxis Risk score (from Nsg)>0 risk: 4 SCD applied (from Nsg): Yes Pharmacological prophylaxis: heparin Lines/Catheters IV Catheter Type (from Nrsg): Peripheral IV Urinary Cath still in place: No Assessment/Plan Hospital Course Assessment/Plan Assessment: Severe acute on chronic anemia Status post EGD/colonoscopy 09/26/2018 -Anastomosis ulcer -Normal colonoscopy Melena ESRD on HD DM Bilateral lower extremity atherosclerosis with left lower extremity third toe ulcer Hx of colonoscopy 05/12- suboptimal prep- no gross lesions- rec to f/u 6 months to 1 year Plan: Continue Protonix BID pt started on heparin today - maintain close observation- monitor for overt signs of GI bleed Pt to go to the chemical lab supervisor tomorrow at 1300 Patient seen in collaboration with Dr. Cardoza Subjective: Feels well, no over night events, no c/o n/v or overt signs of GI bleed. PHYSICAL EXAMINATION: GENERAL: Alert & oriented x 3, in no acute distress SKIN: No lesions EYES: Pupils equal reactive to light, no discharge. EARS/NOSE AND THROAT: Ears normal, nose normal. NECK: Supple, no masses CARDIOVASCULAR: Heart: Regular rate and rhythm, RESPIRATORY: Lungs clear to auscultation GASTROINTESTINAL AND LIVER: Abdomen: Soft, non tenderness, normoactive bowel sounds. Rectal: Deferred. GENITOURINARY: [Male genitalia within normal limits. EXTREMITIES: No cyanosis, clubbing or edema. Result Diagram: 09/29/18 0959 09/29/18 0557 Results 24hrs Laboratory Tests Test 09/28/18 14:11 09/28/18 17:08 09/28/18 20:49 09/29/18 01:02 Creatine Kinase 52 Creatine Kinase 2.2 Index Creatinine Kinase 1.16 MB (Mass) Troponin I 0.859 *H Bedside Glucose 123 110 91 Test 09/29/18 05:35 09/29/18 05:57 09/29/18 07:10 09/29/18 07:56 Bedside Glucose 89 84 White Blood Count 6.8 Red Blood Count 3.04 L Hemoglobin 9.1 L Hematocrit 27.9 L Mean Corpuscular 91.8 Volume Mean Corpuscular 29.9 Hemoglobin Mean Corpuscular 32.6 Hemoglobin Concent Red Cell 17.3 H Distribution Width Platelet Count 214 Mean Platelet 11.4 H Volume Immature 0.300 Granulocytes % Neutrophils % 58.9 Lymphocytes % 17.6 Monocytes % 13.9 H Eosinophils % 8.3 H Basophils % 1.0 Nucleated Red Blood 0.0 Cells % Immature 0.020 Granulocytes # Neutrophils # 4.0 Lymphocytes # 1.2 Monocytes # 0.9 Eosinophils # 0.6 H Basophils # 0.1 Nucleated Red Blood 0.0 Cells # Sodium Level 139 Potassium Level 3.6 Chloride Level 100 Carbon Dioxide 26 Level Anion Gap 13 Blood Urea Nitrogen 35 H Creatinine 7.40 #H Est Glomerular 7 L Filtrat Rate mL/min Glucose Level 86 # Calcium Level 8.4 Total Bilirubin 0.3 Direct Bilirubin 0.00 Indirect Bilirubin 0.3 Aspartate Amino 18 Transf (AST/SGOT) Alanine 16 Aminotransferase (A LT/SGPT) Alkaline 47 Phosphatase Total Protein 6.7 Albumin 3.4 Globulin 3.30 H Albumin/Globulin 1.03 Ratio Lab Scanned Report BLOOD TRANSFUSION Test 09/29/18 09:36 09/29/18 09:59 09/29/18 12:08 Bedside Glucose 108 91 White Blood Count 6.5 Red Blood Count 3.21 L Hemoglobin 9.5 L Hematocrit 29.4 L Mean Corpuscular 91.6 Volume Mean Corpuscular 29.6 Hemoglobin Mean Corpuscular 32.3 Hemoglobin Concent Red Cell 16.9 H Distribution Width Platelet Count 209 Mean Platelet 11.5 H Volume Immature 0.500 H Granulocytes % Neutrophils % 68.6 Lymphocytes % 14.9 L Monocytes % 8.3 Eosinophils % 6.6 Basophils % 1.1 Nucleated Red Blood 0.0 Cells % Immature 0.030 Granulocytes # Neutrophils # 4.5 Lymphocytes # 1.0 Monocytes # 0.5 Eosinophils # 0.4 Basophils # 0.1 Nucleated Red Blood 0.0 Cells # Prothrombin Time 13.2 Prothrombin Time 1.0 Ratio INR International 0.99 Normalized Ratio Activated 35.8 H Partial Thromboplas t Time Exam/Review of Systems Exam Vitals Vital Signs Date Temp Pulse Resp B/P (MAP) Pulse Ox O2 O2 Flow FiO2 Time Delivery Rate 09/29/18 98.0 85 18 127/64 98 12:21 (85) 09/29/18 Nasal 4.0 09:10 Cannula Intake and Output 09/28/18 09/28/18 09/29/18 1515:00 23:00 07:00 IntakeIntake Total 350 ml 400 ml 300 ml BalanceBalance 350 ml 400 ml 300 ml Results Results 24hrs Laboratory Tests Test 09/28/18 14:11 09/28/18 17:08 09/28/18 20:49 09/29/18 01:02 Creatine Kinase 52 Creatine Kinase 2.2 Index Creatinine Kinase 1.16 MB (Mass) Troponin I 0.859 *H Bedside Glucose 123 110 91 Test 09/29/18 05:35 09/29/18 05:57 09/29/18 07:10 09/29/18 07:56 Bedside Glucose 89 84 White Blood Count 6.8 Red Blood Count 3.04 L Hemoglobin 9.1 L Hematocrit 27.9 L Mean Corpuscular 91.8 Volume Mean Corpuscular 29.9 Hemoglobin Mean Corpuscular 32.6 Hemoglobin Concent Red Cell 17.3 H Distribution Width Platelet Count 214 Mean Platelet 11.4 H Volume Immature 0.300 Granulocytes % Neutrophils % 58.9 Lymphocytes % 17.6 Monocytes % 13.9 H Eosinophils % 8.3 H Basophils % 1.0 Nucleated Red Blood 0.0 Cells % Immature 0.020 Granulocytes # Neutrophils # 4.0 Lymphocytes # 1.2 Monocytes # 0.9 Eosinophils # 0.6 H Basophils # 0.1 Nucleated Red Blood 0.0 Cells # Sodium Level 139 Potassium Level 3.6 Chloride Level 100 Carbon Dioxide 26 Level Anion Gap 13 Blood Urea Nitrogen 35 H Creatinine 7.40 #H Est Glomerular 7 L Filtrat Rate mL/min Glucose Level 86 # Calcium Level 8.4 Total Bilirubin 0.3 Direct Bilirubin 0.00 Indirect Bilirubin 0.3 Aspartate Amino 18 Transf (AST/SGOT) Alanine 16 Aminotransferase (A LT/SGPT) Alkaline 47 Phosphatase Total Protein 6.7 Albumin 3.4 Globulin 3.30 H Albumin/Globulin 1.03 Ratio Lab Scanned Report BLOOD TRANSFUSION Test 09/29/18 09:36 09/29/18 09:59 09/29/18 12:08 Bedside Glucose 108 91 White Blood Count 6.5 Red Blood Count 3.21 L Hemoglobin 9.5 L Hematocrit 29.4 L Mean Corpuscular 91.6 Volume Mean Corpuscular 29.6 Hemoglobin Mean Corpuscular 32.3 Hemoglobin Concent Red Cell 16.9 H Distribution Width Platelet Count 209 Mean Platelet 11.5 H Volume Immature 0.500 H Granulocytes % Neutrophils % 68.6 Lymphocytes % 14.9 L Monocytes % 8.3 Eosinophils % 6.6 Basophils % 1.1 Nucleated Red Blood 0.0 Cells % Immature 0.030 Granulocytes # Neutrophils # 4.5 Lymphocytes # 1.0 Monocytes # 0.5 Eosinophils # 0.4 Basophils # 0.1 Nucleated Red Blood 0.0 Cells # Prothrombin Time 13.2 Prothrombin Time 1.0 Ratio INR International 0.99 Normalized Ratio Activated 35.8 H Partial Thromboplas t Time Medications Medication Current Medications Dextrose (D50w Syringe) ONCE PRN IV DECREASED GLUCOSE; Start 09/24/18 at 08:00 EZETIMIBE (Zetia) 10 mg DAILY PO Last administered on 09/29/18 08:27; Admin Dose 10 MG; Start 09/25/18 at 09:00 Folic Acid (Folic Acid) 1 mg DAILY PO Last administered on 09/29/18 08:26; Admin Dose 1 MG; Start 09/25/18 at 09:00 Multivit/Ca Carb/ B Cmplx/FA/Prenat (Isabel-Brenda) 1 tab DAILY PO Last administered on 09/29/18 08:26; Admin Dose 1 TAB; Start 09/25/18 at 09:00 Sevelamer Carbonate (Renvela) 0.8 gm WITH MEALS PO Last administered on 09/29/18 12:12; Admin Dose 0.8 GM; Start 09/24/18 at 17:55 IV Flush (NS 3 ml) 3 ml PER PROTOCOL IV ; Start 09/24/18 at 12:30 Ondansetron HCl (Zofran Tab) 4 mg Q6H PRN PO NAUSEA/VOMITING Last administered on 09/27/18 13:41; Admin Dose 4 MG; Start 09/24/18 at 12:30 Acetaminophen (Tylenol Tab) 650 mg Q6H PRN PO .PAIN 1-3 OR TEMP Last administered on 09/28/18 04:34; Admin Dose 650 MG; Start 09/24/18 at 12:30 Diagnostic Test (Pha) (Accu-Chek) 1 ea 02 XX Last administered on 09/25/18 02:00; Admin Dose 1 EA; Start 09/25/18 at 02:00 Insulin Glargine (Lantus) 31 units DAILY@0800 SC Last administered on 09/29/18at 08:36; Admin Dose 31 UNITS; Start 09/24/18 at 12:30 Insulin Aspart (Novolog Insulin Pen) NOVOLOG *MILD* ALGORI... Q4 SC Last administered on 09/28/18at 04:39; Admin Dose 3 UNIT; Start 09/24/18 at 13:00 Miscellaneous Information 1 ea NOTE XX ; Start 09/24/18 at 13:30 Glucose (Glutose) 15 gm Q15M PRN PO DECREASED GLUCOSE; Start 09/24/18 at 13:30 Glucose (Glutose) 22.5 gm Q15M PRN PO DECREASED GLUCOSE; Start 09/24/18 at 13:30 Dextrose (D50w Syringe) 25 ml Q15M PRN IV DECREASED GLUCOSE; Start 09/24/18 at 13:30 Dextrose (D50w Syringe) 50 ml Q15M PRN IV DECREASED GLUCOSE; Start 09/24/18 at 13:30 Glucagon (Glucagen) 1 mg Q15M PRN IM DECREASED GLUCOSE; Start 09/24/18 at 13:30 Glucose (Glutose) 15 gm Q15M PRN BUCCAL DECREASED GLUCOSE; Start 09/24/18 at 13:30 Albumin Human 100 ml @ 100 mls/hr WITH DIALYSIS PRN IV SBP <90 DURING DIALYSIS; Start 09/24/18 at 18:30 Sodium Chloride (NS) -To prime the dialy... DIRECTED FOR HD PRN IV HD; Start 09/24/18 at 18:30 Atorvastatin Calcium (Lipitor) 40 mg HS PO Last administered on 09/28/18at 20:53; Admin Dose 40 MG; Start 09/25/18 at 21:00 Pentoxifylline (Trental) 400 mg DAILY PO Last administered on 09/29/18 08:27; Admin Dose 400 MG; Start 09/27/18 at 09:00 Docusate Sodium/ Ferrous Fumarate (Les-Sequels) 1 tab BID PO Last administered on 09/29/18 08:26; Admin Dose 1 TAB; Start 09/27/18 at 21:00; Stop 10/27/18 at 20:59 Furosemide (Lasix) 40 mg BID DIURETICS PO Last administered on 09/28/18 17:09; Admin Dose 40 MG; Start 09/26/18 at 18:00 Acetaminophen/ Hydrocodone Bitart ([place] (5/325)) 1 tab Q4H PRN PO PAIN LEVEL 1-5; Start 09/27/18 at 03:00 Acetaminophen/ Hydrocodone Bitart ([place] (5/325)) 2 tab Q4H PRN PO PAIN LEVEL 6-10 Last administered on 09/27/18 03:27; Admin Dose 2 TAB; Start 09/27/18 at 03:00 Pantoprazole (Protonix Iv) 40 mg BID@06,18 IV Last administered on 09/29/18 05:35; Admin Dose 40 MG; Start 09/27/18 at 18:00 Nitroglycerin (Nitroglycerin (Sl Tab) 0.4 Mg) 1 tab Q5M PRN SL ANGINA Last administered on 09/28/18 06:05; Admin Dose 1 TAB; Start 09/28/18 at 03:30 Ipratropium [place] (Atrovent Hfa) 2 puff QID RESP THERAPY PRN INH SHORTNESS OF BREATH; Start 09/28/18 at 04:00 Levalbuterol (Xopenex Neb) 1.25 mg Q4H RESP THERAPY PRN HHN SHORTNESS OF BREATH; Start 09/28/18 at 04:00 Ascorbic Acid (Vitamin C) 500 mg BID PO Last administered on 09/29/18 08:26; Admin Dose 500 MG; Start 09/28/18 at 21:00; Stop 10/28/18 at 20:59 Sucralfate (Carafate Susp) 1 gm QID GTB Last administered on 09/29/18 12:12; Admin Dose 1 GM; Start 09/28/18 at 13:00; Stop 10/12/18 at 12:59 Isosorbide Mononitrate (Imdur) 60 mg DAILY PO Last administered on 09/29/18 08:27; Admin Dose 60 MG; Start 09/28/18 at 15:00 Heparin Sodium (Porcine) (Heparin (1000 Units/ml)) 4,000 unit PER PROTOCOL PRN IV aPTT<47; Start 09/29/18 at 10:00 Heparin Sodium (Porcine) 250 ml @ 0 mls/hr PER PROTOCOL IV Last administered on 09/29/18at 10:35; Admin Dose 12.5 MLS/HR; Start 09/29/18 at 10:00 Aspirin (Aspirin) 81 mg DAILY PO ; Start 09/30/18 at 09:00 HERRERA WORRELL September 29, 2018 13:47
--- NOTE | 2018-09-29 14:57 | PN ---
Date/Time of Note Date/Time of Note DATE: 09/29/18 TIME: 14:50 Assessment/Plan VTE Prophylaxis Risk score (from Nsg)>0 risk: 4 SCD applied (from Nsg): Yes Pharmacological prophylaxis: heparin Lines/Catheters IV Catheter Type (from Nrsg): Peripheral IV Urinary Cath still in place: No Assessment/Plan Hospital Course SUBJECTIVE: No acute distress. OBJECTIVE: Vital signs-see below PHYSICAL EXAM: Constitutional: Adequately built,not in acute distress. HEENT: Head atraumatic and normocephalic. Eyes: Extraocular muscles intact. Anicteric sclerae. Pupils equal bilaterally, reactive to light. NECK: Supple without lymph node. CHEST: Slight wheezing on right upper lobe. HEART: S1, S2. Regular rate and rhythm. ABDOMEN: Soft/non tender with no rebound tenderness. Bowel sounds were present. EXTREMITIES:BLE 2+edema (improved) w/no palpable DP pulses. 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 NEUROLOGIC: Alert and oriented x3. No focal deficit. No sensory deficit. PSYCHOSOCIAL: No signs of depression. INTEGUMENTARY: left foot 3rd toe chronic ulcer. no oozing. Pale skin. ASSESSMENT AND PLAN:67 yo with numerous comorbidities including dyslipidemia,dmII,ESRD/HD and severe PVD who is also anticoagulated on Eliquis/Plavix,here with worsening malaise, found to have severe anemia/positive stool OB... Severe acute symptomatic blood loss anemia -Improved with multiple transfusion. -Continue iron Upper GI bleed -s/p EGD showed anastomotic ulcer (hx billroth II) -On PPI/Carafate NSTEMI -Plan is [facility] tomorrow if patient tolerates ATC/antiplatelet in light of GIB -On heparin gtt/asa/statin. Not a candidate for BB 2/2 HB --Bleeding precautions Mobitz type I heart block -Avoid BB/AV jesus agents. 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 -on Trental for pain -Wound care Obesity with BMI 36.3 -Weight reduction advised. Anemia of ESRD -Consider Epogen with hemodialysis. DVT prophylaxis: Chemical prophylaxis is contraindicated. SCDs contraindicated secondary to edema. PUD prophylaxis: Protonix Disposition: We will up with etiology recommendations. Patient was seen in collaboration with Dr. Beltran. Result Diagram: 09/29/18 0959 09/29/18 0557 Results 24hrs Laboratory Tests Test 09/28/18 17:08 09/28/18 20:49 09/29/18 01:02 09/29/18 05:35 Bedside Glucose 123 110 91 89 Test 09/29/18 05:57 09/29/18 07:10 09/29/18 07:56 09/29/18 09:36 White Blood Count 6.8 Red Blood Count 3.04 L Hemoglobin 9.1 L Hematocrit 27.9 L Mean Corpuscular 91.8 Volume Mean Corpuscular 29.9 Hemoglobin Mean Corpuscular 32.6 Hemoglobin Concent Red Cell 17.3 H Distribution Width Platelet Count 214 Mean Platelet 11.4 H Volume Immature 0.300 Granulocytes % Neutrophils % 58.9 Lymphocytes % 17.6 Monocytes % 13.9 H Eosinophils % 8.3 H Basophils % 1.0 Nucleated Red Blood 0.0 Cells % Immature 0.020 Granulocytes # Neutrophils # 4.0 Lymphocytes # 1.2 Monocytes # 0.9 Eosinophils # 0.6 H Basophils # 0.1 Nucleated Red Blood 0.0 Cells # Sodium Level 139 Potassium Level 3.6 Chloride Level 100 Carbon Dioxide 26 Level Anion Gap 13 Blood Urea Nitrogen 35 H Creatinine 7.40 #H Est Glomerular 7 L Filtrat Rate mL/min Glucose Level 86 # Calcium Level 8.4 Total Bilirubin 0.3 Direct Bilirubin 0.00 Indirect Bilirubin 0.3 Aspartate Amino 18 Transf (AST/SGOT) Alanine 16 Aminotransferase (A LT/SGPT) Alkaline 47 Phosphatase Total Protein 6.7 Albumin 3.4 Globulin 3.30 H Albumin/Globulin 1.03 Ratio Lab Scanned Report BLOOD TRANSFUSION Bedside Glucose 84 108 Test 09/29/18 09:59 09/29/18 12:08 White Blood Count 6.5 Red Blood Count 3.21 L Hemoglobin 9.5 L Hematocrit 29.4 L Mean Corpuscular 91.6 Volume Mean Corpuscular 29.6 Hemoglobin Mean Corpuscular 32.3 Hemoglobin Concent Red Cell 16.9 H Distribution Width Platelet Count 209 Mean Platelet 11.5 H Volume Immature 0.500 H Granulocytes % Neutrophils % 68.6 Lymphocytes % 14.9 L Monocytes % 8.3 Eosinophils % 6.6 Basophils % 1.1 Nucleated Red Blood 0.0 Cells % Immature 0.030 Granulocytes # Neutrophils # 4.5 Lymphocytes # 1.0 Monocytes # 0.5 Eosinophils # 0.4 Basophils # 0.1 Nucleated Red Blood 0.0 Cells # Prothrombin Time 13.2 Prothrombin Time 1.0 Ratio INR International 0.99 Normalized Ratio Activated 35.8 H Partial Thromboplas t Time Bedside Glucose 91 Exam/Review of Systems Exam Vitals Vital Signs Date Temp Pulse Resp B/P (MAP) Pulse Ox O2 O2 Flow FiO2 Time Delivery Rate 09/29/18 98.0 85 18 127/64 98 12:21 (85) 09/29/18 Nasal 4.0 09:10 Cannula Intake and Output 09/28/18 09/28/18 09/29/18 1515:00 23:00 07:00 IntakeIntake Total 350 ml 400 ml 300 ml BalanceBalance 350 ml 400 ml 300 ml Results Results 24hrs Laboratory Tests Test 09/28/18 17:08 09/28/18 20:49 09/29/18 01:02 09/29/18 05:35 Bedside Glucose 123 110 91 89 Test 09/29/18 05:57 09/29/18 07:10 09/29/18 07:56 09/29/18 09:36 White Blood Count 6.8 Red Blood Count 3.04 L Hemoglobin 9.1 L Hematocrit 27.9 L Mean Corpuscular 91.8 Volume Mean Corpuscular 29.9 Hemoglobin Mean Corpuscular 32.6 Hemoglobin Concent Red Cell 17.3 H Distribution Width Platelet Count 214 Mean Platelet 11.4 H Volume Immature 0.300 Granulocytes % Neutrophils % 58.9 Lymphocytes % 17.6 Monocytes % 13.9 H Eosinophils % 8.3 H Basophils % 1.0 Nucleated Red Blood 0.0 Cells % Immature 0.020 Granulocytes # Neutrophils # 4.0 Lymphocytes # 1.2 Monocytes # 0.9 Eosinophils # 0.6 H Basophils # 0.1 Nucleated Red Blood 0.0 Cells # Sodium Level 139 Potassium Level 3.6 Chloride Level 100 Carbon Dioxide 26 Level Anion Gap 13 Blood Urea Nitrogen 35 H Creatinine 7.40 #H Est Glomerular 7 L Filtrat Rate mL/min Glucose Level 86 # Calcium Level 8.4 Total Bilirubin 0.3 Direct Bilirubin 0.00 Indirect Bilirubin 0.3 Aspartate Amino 18 Transf (AST/SGOT) Alanine 16 Aminotransferase (A LT/SGPT) Alkaline 47 Phosphatase Total Protein 6.7 Albumin 3.4 Globulin 3.30 H Albumin/Globulin 1.03 Ratio Lab Scanned Report BLOOD TRANSFUSION Bedside Glucose 84 108 Test 09/29/18 09:59 09/29/18 12:08 White Blood Count 6.5 Red Blood Count 3.21 L Hemoglobin 9.5 L Hematocrit 29.4 L Mean Corpuscular 91.6 Volume Mean Corpuscular 29.6 Hemoglobin Mean Corpuscular 32.3 Hemoglobin Concent Red Cell 16.9 H Distribution Width Platelet Count 209 Mean Platelet 11.5 H Volume Immature 0.500 H Granulocytes % Neutrophils % 68.6 Lymphocytes % 14.9 L Monocytes % 8.3 Eosinophils % 6.6 Basophils % 1.1 Nucleated Red Blood 0.0 Cells % Immature 0.030 Granulocytes # Neutrophils # 4.5 Lymphocytes # 1.0 Monocytes # 0.5 Eosinophils # 0.4 Basophils # 0.1 Nucleated Red Blood 0.0 Cells # Prothrombin Time 13.2 Prothrombin Time 1.0 Ratio INR International 0.99 Normalized Ratio Activated 35.8 H Partial Thromboplas t Time Bedside Glucose 91 Medications Medication Current Medications Dextrose (D50w Syringe) ONCE PRN IV DECREASED GLUCOSE; Start 09/24/18 at 08:00 EZETIMIBE (Zetia) 10 mg DAILY PO Last administered on 09/29/18 08:27; Admin Dose 10 MG; Start 09/25/18 at 09:00 Folic Acid (Folic Acid) 1 mg DAILY PO Last administered on 09/29/18 08:26; Admin Dose 1 MG; Start 09/25/18 at 09:00 Multivit/Ca Carb/ B Cmplx/FA/Prenat (Isabel-Brenda) 1 tab DAILY PO Last administered on 09/29/18 08:26; Admin Dose 1 TAB; Start 09/25/18 at 09:00 Sevelamer Carbonate (Renvela) 0.8 gm WITH MEALS PO Last administered on 09/29/18at 12:12; Admin Dose 0.8 GM; Start 09/24/18 at 17:55 IV Flush (NS 3 ml) 3 ml PER PROTOCOL IV ; Start 09/24/18 at 12:30 Ondansetron HCl (Zofran Tab) 4 mg Q6H PRN PO NAUSEA/VOMITING Last administered on 09/27/18at 13:41; Admin Dose 4 MG; Start 09/24/18 at 12:30 Acetaminophen (Tylenol Tab) 650 mg Q6H PRN PO .PAIN 1-3 OR TEMP Last administered on 09/28/18at 04:34; Admin Dose 650 MG; Start 09/24/18 at 12:30 Diagnostic Test (Pha) (Accu-Chek) 1 ea 02 XX Last administered on 09/25/18at 02:00; Admin Dose 1 EA; Start 09/25/18 at 02:00 Insulin Glargine (Lantus) 31 units DAILY@0800 SC Last administered on 09/29/18at 08:36; Admin Dose 31 UNITS; Start 09/24/18 at 12:30 Insulin Aspart (Novolog Insulin Pen) NOVOLOG *MILD* ALGORI... Q4 SC Last administered on 09/28/18at 04:39; Admin Dose 3 UNIT; Start 09/24/18 at 13:00 Miscellaneous Information 1 ea NOTE XX ; Start 09/24/18 at 13:30 Glucose (Glutose) 15 gm Q15M PRN PO DECREASED GLUCOSE; Start 09/24/18 at 13:30 Glucose (Glutose) 22.5 gm Q15M PRN PO DECREASED GLUCOSE; Start 09/24/18 at 13:30 Dextrose (D50w Syringe) 25 ml Q15M PRN IV DECREASED GLUCOSE; Start 09/24/18 at 13:30 Dextrose (D50w Syringe) 50 ml Q15M PRN IV DECREASED GLUCOSE; Start 09/24/18 at 13:30 Glucagon (Glucagen) 1 mg Q15M PRN IM DECREASED GLUCOSE; Start 09/24/18 at 13:30 Glucose (Glutose) 15 gm Q15M PRN BUCCAL DECREASED GLUCOSE; Start 09/24/18 at 13:30 Albumin Human 100 ml @ 100 mls/hr WITH DIALYSIS PRN IV SBP <90 DURING DIALYSIS; Start 09/24/18 at 18:30 Sodium Chloride (NS) -To prime the dialy... DIRECTED FOR HD PRN IV HD; Start 09/24/18 at 18:30 Atorvastatin Calcium (Lipitor) 40 mg HS PO Last administered on 09/28/18 20:53; Admin Dose 40 MG; Start 09/25/18 at 21:00 Pentoxifylline (Trental) 400 mg DAILY PO Last administered on 09/29/18 08:27; Admin Dose 400 MG; Start 09/27/18 at 09:00 Docusate Sodium/ Ferrous Fumarate (Les-Sequels) 1 tab BID PO Last administered on 09/29/18 08:26; Admin Dose 1 TAB; Start 09/27/18 at 21:00; Stop 10/27/18 at 20:59 Furosemide (Lasix) 40 mg BID DIURETICS PO Last administered on 09/28/18 17:09; Admin Dose 40 MG; Start 09/26/18 at 18:00 Acetaminophen/ Hydrocodone Bitart ([place] (5/325)) 1 tab Q4H PRN PO PAIN LEVEL 1-5; Start 09/27/18 at 03:00 Acetaminophen/ Hydrocodone Bitart ([place] (5/325)) 2 tab Q4H PRN PO PAIN LEVEL 6-10 Last administered on 09/27/18 03:27; Admin Dose 2 TAB; Start 09/27/18 at 03:00 Pantoprazole (Protonix Iv) 40 mg BID@06,18 IV Last administered on 09/29/18 05:35; Admin Dose 40 MG; Start 09/27/18 at 18:00 Nitroglycerin (Nitroglycerin (Sl Tab) 0.4 Mg) 1 tab Q5M PRN SL ANGINA Last administered on 09/28/18 06:05; Admin Dose 1 TAB; Start 09/28/18 at 03:30 Ipratropium [place] (Atrovent Hfa) 2 puff QID RESP THERAPY PRN INH SHORTNESS OF BREATH; Start 09/28/18 at 04:00 Levalbuterol (Xopenex Neb) 1.25 mg Q4H RESP THERAPY PRN HHN SHORTNESS OF BREATH; Start 09/28/18 at 04:00 Ascorbic Acid (Vitamin C) 500 mg BID PO Last administered on 09/29/18 08:26; Admin Dose 500 MG; Start 09/28/18 at 21:00; Stop 10/28/18 at 20:59 Sucralfate (Carafate Susp) 1 gm QID GTB Last administered on 09/29/18at 12:12; Admin Dose 1 GM; Start 09/28/18 at 13:00; Stop 10/12/18 at 12:59 Isosorbide Mononitrate (Imdur) 60 mg DAILY PO Last administered on 09/29/18at 08: 27; Admin Dose 60 MG; Start 09/28/18 at 15:00 Heparin Sodium (Porcine) (Heparin (1000 Units/ml)) 4,000 unit PER PROTOCOL PRN IV aPTT<47; Start 09/29/18 at 10:00 Heparin Sodium (Porcine) 250 ml @ 0 mls/hr PER PROTOCOL IV Last administered on 09/29/18at 10:35; Admin Dose 12.5 MLS/HR; Start 09/29/18 at 10:00 Aspirin (Aspirin) 81 mg DAILY PO ; Start 09/30/18 at 09:00 DENZEL MICHAELS NP September 29, 2018 14:57
[2018-09-29] MEDS: ACETAMINOPHEN 325 MG TAB PO PRN (19:43)
[2018-09-29] MEDS: ATORVASTATIN 40 MG TAB PO SCH (20:41)
--- NOTE | 2018-09-29 22:49 | PN ---
Date/Time of Note Date/Time of Note DATE: 09/29/18 TIME: 22:49 Assessment/Plan Lines/Catheters IV Catheter Type (from [facility]): Peripheral IV [place] in Place (from [facility]): No Assessment/Plan Chief Complaint/Hosp Course -No current vascular intervention at this time give GIB -LLE toe gangrene dry and stable -Will continue to monitor his progress Subjective 24 Hr Interval Summary Constitutional: no complaints Exam/Review of Systems Vital Signs Vitals Vital Signs Date Temp Pulse Resp B/P (MAP) Pulse Ox O2 O2 Flow FiO2 Time Delivery Rate 10/02/18 89 14 138/60 97 Room Air 09:00 (86) 10/02/18 98.3 07:00 09/29/18 4.0 09:10 Intake and Output 10/01/18 10/01/18 10/02/18 1414:59 22:59 06:59 IntakeIntake Total 440 ml 210 ml 100 ml OutputOutput Total 3850 ml 120 ml 0 ml BalanceBalance -3410 ml 90 ml 100 ml Exam Free Text/Dictation GENERAL: Alert and oriented x3, no apparent distress. HEENT: Normocephalic, atraumatic. Mucosa moist. NECK: Supple, no carotid bruit. PULMONARY: Clear to auscultation bilaterally. No crackles. CARDIOVASCULAR: S1, S2 present. Irregularly irregular. ABDOMEN: Soft, nontender, nondistended. Bowel sounds positive. Large truncal obesity. EXTREMITIES: Right lower extremity palpable femoral pulse, nonpalpable pedal pulse. Motor, sensory intact. Cap refill 3 to 4 seconds. Presence of varicose veins and large leg. Left lower extremity palpable femoral pulse, nonpalpable pedal pulse. Motor, sensory intact. Cap refill 3 to 4 seconds. Third toe gangrene site. First and second toe becoming gangrene Varicose veins and edema of the left lower extremity with presence of mild lipodermatosclerosis. Left upper extremity: Palpable brachial pulse, motor and sensory intact, fistula with bruit and thrill present, sutures to be removed Results Result Diagram: 10/02/18 0449 10/02/18 0449 VANIA PEREYRA MD September 29, 2018 22:49
[2018-09-29] MEDS: ZOLPIDEM 5 MG TAB PO PRN (23:54)
[2018-09-30] VITALS (21 sets, daily range): BP systolic 62–141; BP diastolic 23–70; PULSE 42–97; RESP 12–20
[2018-09-30] MEDS: ACCU-CHEK XX SCH (01:28)
[2018-09-30] MEDS: INSULIN ASPART [NOVOLOG] 3 ML PEN SC SCH ×6 (01:28→20:46)
[2018-09-30] MEDS: PANTOPRAZOLE 40 MG INJ IV SCH ×2 (05:16→17:46)
[2018-09-30] MEDS: FUROSEMIDE 40 MG TAB PO SCH ×2 (05:16→17:57)
[2018-09-30] MEDS: HEPARIN 25000 UNITS/250 ML 250 ML IV SCH ×2 (06:12→07:03)
[2018-09-30] MEDS: INSULIN GLARGINE [LANTus] (100 UNITS/ML) SYG SC SCH (08:00)
[2018-09-30] MEDS: MULTIVIT/CA CARB/B CMPLX/FA TAB PO SCH (09:32)
[2018-09-30] MEDS: ASCORBIC ACID 500 MG TAB PO SCH ×2 (09:32→20:33)
[2018-09-30] MEDS: SEVELAMER CARBONATE 0.8 GM PKT PO SCH ×3 (09:32→18:09)
[2018-09-30] MEDS: FERROUS FUMARATE (SR) TAB PO SCH ×2 (09:32→20:33)
[2018-09-30] MEDS: SUCRALFATE (100 MG/ML) 10ML CUP GTB SCH ×4 (09:32→20:33)
[2018-09-30] MEDS: ASPIRIN 81 MG TAB PO SCH (09:33)
[2018-09-30] MEDS: ISOSORBIDE MONONITRATE(SR)60 MG TAB PO SCH (09:33)
[2018-09-30] MEDS: EZETIMIBE 10 MG TAB PO SCH (09:33)
[2018-09-30] MEDS: FOLIC ACID 1 MG TAB PO SCH (09:33)
[2018-09-30] MEDS: PENTOXIFYLLINE (SR) 400 MG TAB PO SCH (09:33)
--- NOTE | 2018-09-30 10:15 | PN ---
Date/Time of Note Date/Time of Note DATE: 09/30/18 TIME: 10:13 Assessment/Plan VTE Prophylaxis Risk score (from Ns)>0 risk: 2 SCD applied (from Ns): No SCD contraindicated: bilateral LE trauma Pharmacological prophylaxis: heparin Lines/Catheters IV [facility] (from [facility]): Peripheral IV Urinary Cath still in place: No Assessment/Plan Hospital Course Assessment/Plan Assessment: Severe acute on chronic anemia Status post EGD/colonoscopy 09/26/2018 -Anastomosis ulcer -Normal colonoscopy Melena ESRD on HD DM Bilateral lower extremity atherosclerosis with left lower extremity third toe ulcer Hx of colonoscopy 05/12- suboptimal prep- no gross lesions- rec to f/u 6 months to 1 year Plan: Continue Protonix BID Continue to monitor for overt signs of GI bleed Pt NPO for planned cardiac catheterization today Patient seen in collaboration with Dr. Cardoza Subjective: No over night events, no overt signs of GI bleed with stable HGB, since starting Heparin gtt. No c/o nausea or vomiting. Pt currently NPO. Family at bedside. PHYSICAL EXAMINATION: GENERAL: Alert & oriented x 3, in no acute distress SKIN: No lesions EYES: Pupils equal reactive to light, no discharge. EARS/NOSE AND THROAT: Ears normal, nose normal. NECK: Supple, no masses CARDIOVASCULAR: Heart: Regular rate and rhythm, RESPIRATORY: Lungs clear to auscultation GASTROINTESTINAL AND LIVER: Abdomen: Soft, non tenderness, normoactive bowel sounds. Rectal: Deferred. GENITOURINARY: [Male genitalia within normal limits. EXTREMITIES: No cyanosis, clubbing or edema. Result Diagram: 09/30/18 0606 09/30/18 0606 Results 24hrs Laboratory Tests Test 09/29/18 12:08 09/29/18 16:51 09/29/18 17:08 09/29/18 20:38 Bedside Glucose 91 193 209 Hemoglobin 10.5 L Hematocrit 32.5 L Activated 71.5 *H Partial Thromboplast Time Test 09/29/18 22:56 09/30/18 01:14 09/30/18 04:32 09/30/18 06:06 Activated 43.8 H 86.4 *H Partial Thromboplast Time Bedside Glucose 261 H 127 White Blood Count 7.2 Red Blood Count 3.44 L Hemoglobin 10.1 L Hematocrit 31.9 L Mean Corpuscular Volume 92.7 Mean Corpuscular 29.4 Hemoglobin Mean Corpuscular 31.7 L Hemoglobin Concent Red Cell Distribution 16.6 H Width Platelet Count 233 Mean Platelet Volume 10.9 H Immature Granulocytes % 0.700 H Neutrophils % 61.9 Lymphocytes % 15.7 Monocytes % 12.6 H Eosinophils % 8.0 H Basophils % 1.1 Nucleated Red Blood 0.0 Cells % Immature Granulocytes # 0.050 H Neutrophils # 4.4 Lymphocytes # 1.1 Monocytes # 0.9 Eosinophils # 0.6 H Basophils # 0.1 Nucleated Red Blood 0.0 Cells # Sodium Level 142 Potassium Level 3.7 Chloride Level 100 Carbon Dioxide Level 28 Anion Gap 14 H Blood Urea Nitrogen 31 H Creatinine 6.90 H Est Glomerular Filtrat 8 L Rate mL/min Glucose Level 119 Calcium Level 8.7 Test 09/30/18 08:10 09/30/18 09:41 Bedside Glucose 125 123 Exam/Review of Systems Exam Vitals Vital Signs Date Temp Pulse Resp B/P (MAP) Pulse Ox O2 O2 Flow FiO2 Time Delivery Rate 09/30/18 98.0 87 18 127/62 98 07:57 (83) 09/29/18 Nasal 4.0 09:10 Cannula Intake and Output 09/29/18 09/29/18 09/30/18 1515:00 23:00 07:00 IntakeIntake Total 700 ml 470 ml OutputOutput Total 3600 ml BalanceBalance -3600 ml 700 ml 470 ml Results Results 24hrs Laboratory Tests Test 09/29/18 12:08 09/29/18 16:51 09/29/18 17:08 09/29/18 20:38 Bedside Glucose 91 193 209 Hemoglobin 10.5 L Hematocrit 32.5 L Activated 71.5 *H Partial Thromboplast Time Test 09/29/18 22:56 09/30/18 01:14 09/30/18 04:32 09/30/18 06:06 Activated 43.8 H 86.4 *H Partial Thromboplast Time Bedside Glucose 261 H 127 White Blood Count 7.2 Red Blood Count 3.44 L Hemoglobin 10.1 L Hematocrit 31.9 L Mean Corpuscular Volume 92.7 Mean Corpuscular 29.4 Hemoglobin Mean Corpuscular 31.7 L Hemoglobin Concent Red Cell Distribution 16.6 H Width Platelet Count 233 Mean Platelet Volume 10.9 H Immature Granulocytes % 0.700 H Neutrophils % 61.9 Lymphocytes % 15.7 Monocytes % 12.6 H Eosinophils % 8.0 H Basophils % 1.1 Nucleated Red Blood 0.0 Cells % Immature Granulocytes # 0.050 H Neutrophils # 4.4 Lymphocytes # 1.1 Monocytes # 0.9 Eosinophils # 0.6 H Basophils # 0.1 Nucleated Red Blood 0.0 Cells # Sodium Level 142 Potassium Level 3.7 Chloride Level 100 Carbon Dioxide Level 28 Anion Gap 14 H Blood Urea Nitrogen 31 H Creatinine 6.90 H Est Glomerular Filtrat 8 L Rate mL/min Glucose Level 119 Calcium Level 8.7 Test 09/30/18 08:10 09/30/18 09:41 Bedside Glucose 125 123 Medications Medication Current Medications Dextrose (D50w Syringe) ONCE PRN IV DECREASED GLUCOSE; Start 09/24/18 at 08:00 EZETIMIBE (Zetia) 10 mg DAILY PO Last administered on 09/30/18 09:33; Admin D ose 10 MG; Start 09/25/18 at 09:00 Folic Acid (Folic Acid) 1 mg DAILY PO Last administered on 09/30/18 09:33; Admin Dose 1 MG; Start 09/25/18 at 09:00 Multivit/Ca Carb/ B Cmplx/FA/Prenat (Isabel-Brenda) 1 tab DAILY PO Last administered on 09/30/18 09:32; Admin Dose 1 TAB; Start 09/25/18 at 09:00 Sevelamer Carbonate (Renvela) 0.8 gm WITH MEALS PO Last administered on 09/30/18 09:32; Admin Dose 0.8 GM; Start 09/24/18 at 17:55 IV Flush (NS 3 ml) 3 ml PER PROTOCOL IV ; Start 09/24/18 at 12:30 Ondansetron HCl (Zofran Tab) 4 mg Q6H PRN PO NAUSEA/VOMITING Last administered on 09/27/18 13:41; Admin Dose 4 MG; Start 09/24/18 at 12:30 Acetaminophen (Tylenol Tab) 650 mg Q6H PRN PO .PAIN 1-3 OR TEMP Last ad ministered on 09/29/18 19:43; Admin Dose 650 MG; Start 09/24/18 at 12:30 Diagnostic Test (Pha) (Accu-Chek) 1 02 XX Last administered on 09/30/18at 01:28; Admin Dose 1 EA; Start 09/25/18 at 02:00 Insulin Glargine (Lantus) 31 units DAILY@0800 SC Last administered on 09/29/18at 08:36; Admin Dose 31 UNITS; Start 09/24/18 at 12:30 Insulin Aspart (Novolog Insulin Pen) NOVOLOG *MILD* ALGORI... Q4 SC Last administered on 09/30/18at 01:28; Admin Dose 4 UNIT; Start 09/24/18 at 13:00 Miscellaneous Information 1 ea NOTE XX ; Start 09/24/18 at 13:30 Glucose (Glutose) 15 gm Q15M PRN PO DECREASED GLUCOSE; Start 09/24/18 at 13:30 Glucose (Glutose) 22.5 gm Q15M PRN PO DECREASED GLUCOSE; Start 09/24/18 at 13:30 Dextrose (D50w Syringe) 25 ml Q15M PRN IV DECREASED GLUCOSE; Start 09/24/18 at 13:30 Dextrose (D50w Syringe) 50 ml Q15M PRN IV DECREASED GLUCOSE; Start 09/24/18 at 13:30 Glucagon (Glucagen) 1 mg Q15M PRN IM DECREASED GLUCOSE; Start 09/24/18 at 13:30 Glucose (Glutose) 15 gm Q15M PRN BUCCAL DECREASED GLUCOSE; Start 09/24/18 at 13:30 Albumin Human 100 ml @ 100 mls/hr WITH DIALYSIS PRN IV SBP <90 DURING DIALYSIS; Start 09/24/18 at 18:30 Sodium Chloride (NS) -To prime the dialy... DIRECTED FOR HD PRN IV HD; Start 09/24/18 at 18:30 Atorvastatin Calcium (Lipitor) 40 mg HS PO Last administered on 09/29/18at 20:41; Admin Dose 40 MG; Start 09/25/18 at 21:00 Pentoxifylline (Trental) 400 mg DAILY PO Last administered on 09/30/18at 09:33; Admin Dose 400 MG; Start 09/27/18 at 09:00 Docusate Sodium/ Ferrous Fumarate (Les-Sequels) 1 tab BID PO Last administered on 09/30/18at 09:32; Admin Dose 1 TAB; Start 09/27/18 at 21:00; Stop 10/27/18 at 20:59 Furosemide (Lasix) 40 mg BID DIURETICS PO Last administered on 09/30/18 05:16; Admin Dose 40 MG; Start 09/26/18 at 18:00 Acetaminophen/ Hydrocodone Bitart ([place] (5/325)) 1 tab Q4H PRN PO PAIN LEVEL 1-5; Start 09/27/18 at 03:00 Acetaminophen/ Hydrocodone Bitart ([place] (5/325)) 2 tab Q4H PRN PO PAIN LEVEL 6-10 Last administered on 09/27/18at 03:27; Admin Dose 2 TAB; Start 09/27/18 at 03:00 Pantoprazole (Protonix Iv) 40 mg BID@18 IV Last administered on 09/30/18 05:16; Admin Dose 40 MG; Start 09/27/18 at 18:00 Nitroglycerin (Nitroglycerin (Sl Tab) 0.4 Mg) 1 tab Q5M PRN SL ANGINA Last administered on 09/28/18 06:05; Admin Dose 1 TAB; Start 09/28/18 at 03:30 Ipratropium [place] (Atrovent Hfa) 2 puff QID RESP THERAPY PRN INH SHORTNESS OF BREATH; Start 09/28/18 at 04:00 Levalbuterol (Xopenex Neb) 1.25 mg Q4H RESP THERAPY PRN HHN SHORTNESS OF BREATH; Start 09/28/18 at 04:00 Ascorbic Acid (Vitamin C) 500 mg BID PO Last administered on 09/30/18at 09:32; Admin Dose 500 MG; Start 09/28/18 at 21:00; Stop 10/28/18 at 20:59 Sucralfate (Carafate Susp) 1 gm QID GTB Last administered on 09/30/18 09:32; Admin Dose 1 GM; Start 09/28/18 at 13:00; Stop 10/12/18 at 12:59 Isosorbide Mononitrate (Imdur) 60 mg DAILY PO Last administered on 09/30/18 09:33; Admin Dose 60 MG; Start 09/28/18 at 15:00 Aspirin (Aspirin) 81 mg DAILY PO Last administered on 09/30/18 09:33; Admin Dose 81 MG; Start 09/30/18 at 09:00 Zolpidem Tartrate (Ambien) 5 mg HS PRN PO INSOMNIA Last administered on 09/29/18at 23:54; Admin Dose 5 MG; Start 09/30/18 at 00:00 HERRERA WORRELL September 30, 2018 10:15
--- NOTE | 2018-09-30 10:29 | PN ---
Date/Time of Note Date/Time of Note DATE: 09/30/18 TIME: 10:22 Assessment/Plan VTE Prophylaxis Risk score (from Ns)>0 risk: 2 SCD applied (from Ns): No SCD contraindicated: other Pharmacological prophylaxis: heparin Lines/Catheters IV C[facility] Type (from [facility]): Peripheral IV Urinary Cath still in place: No Assessment/Plan Hospital Course SUBJECTIVE: No acute distress. No bleeding sources. OBJECTIVE: Vital signs-see below PHYSICAL EXAM: Constitutional: Adequately built,not in acute distress. HEENT: Head atraumatic and normocephalic. Eyes: Extraocular muscles intact. Anicteric sclerae. Pupils equal bilaterally, reactive to light. NECK: Supple without lymph node. CHEST: Slight wheezing on right upper lobe. HEART: S1, S2. Regular rate and rhythm. ABDOMEN: Soft/non tender with no rebound tenderness. Bowel sounds were present. EXTREMITIES:BLE 2+edema (improved) w/no palpable DP pulses. 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 NEUROLOGIC: Alert and oriented x3. No focal deficit. No sensory deficit. PSYCHOSOCIAL: No signs of depression. INTEGUMENTARY: left foot 3rd toe chronic dry gangrene. ASSESSMENT AND PLAN:67 yo with numerous comorbidities including dyslipidemia,dmII,ESRD/HD and severe PVD who is also anticoagulated on Eliquis/Plavix,here with worsening malaise, found to have severe anemia/positive stool OB... Severe acute symptomatic blood loss anemia -Improved with multiple transfusion. -Continue iron Upper GI bleed -s/p EGD showed anastomotic ulcer (hx billroth II) -On PPI/Carafate NSTEMI -Patient with no bleeding episodes on heparin gtt/asa.at this time, plan is [facility] today -Continue aspirin/statin. Not a candidate for BB 2/2 HB Mobitz type I heart block -Stable -Avoid BB/AV jesus agents. 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 -on Trental for pain -Wound care Obesity with BMI 36.3 -Weight reduction advised. Anemia of ESRD -Consider Epogen with hemodialysis. DVT prophylaxis: Heparin PUD prophylaxis: Protonix Disposition: Patient is scheduled for [facility] today. We will follow-up with cardiology recommendations. Patient was seen in collaboration with Dr. Beltran. Result Diagram: 09/30/18 0606 09/30/18 0606 Results 24hrs Laboratory Tests Test 09/29/18 12:08 09/29/18 16:51 09/29/18 17:08 09/29/18 20:38 Bedside Glucose 91 193 209 Hemoglobin 10.5 L Hematocrit 32.5 L Activated 71.5 *H Partial Thromboplast Time Test 09/29/18 22:56 09/30/18 01:14 09/30/18 04:32 09/30/18 06:06 Activated 43.8 H 86.4 *H Partial Thromboplast Time Bedside Glucose 261 H 127 White Blood Count 7.2 Red Blood Count 3.44 L Hemoglobin 10.1 L Hematocrit 31.9 L Mean Corpuscular Volume 92.7 Mean Corpuscular 29.4 Hemoglobin Mean Corpuscular 31.7 L Hemoglobin Concent Red Cell Distribution 16.6 H Width Platelet Count 233 Mean Platelet Volume 10.9 H Immature Granulocytes % 0.700 H Neutrophils % 61.9 Lymphocytes % 15.7 Monocytes % 12.6 H Eosinophils % 8.0 H Basophils % 1.1 Nucleated Red Blood 0.0 Cells % Immature Granulocytes # 0.050 H Neutrophils # 4.4 Lymphocytes # 1.1 Monocytes # 0.9 Eosinophils # 0.6 H Basophils # 0.1 Nucleated Red Blood 0.0 Cells # Sodium Level 142 Potassium Level 3.7 Chloride Level 100 Carbon Dioxide Level 28 Anion Gap 14 H Blood Urea Nitrogen 31 H Creatinine 6.90 H Est Glomerular Filtrat 8 L Rate mL/min Glucose Level 119 Calcium Level 8.7 Test 09/30/18 08:10 09/30/18 09:41 Bedside Glucose 125 123 Exam/Review of Systems Exam Vitals Vital Signs Date Temp Pulse Resp B/P (MAP) Pulse Ox O2 O2 Flow FiO2 Time Delivery Rate 09/30/18 84 08:00 09/30/18 98.0 18 127/62 98 07:57 (83) 09/29/18 Nasal 4.0 09:10 Cannula Intake and Output 5/6/19 5/6/19 5/7/19 1515:00 23:00 07:00 IntakeIntake Total 700 ml 470 ml OutputOutput Total 3600 ml BalanceBalance -3600 ml 700 ml 470 ml Results Results 24hrs Laboratory Tests Test 09/29/18 12:08 09/29/18 16:51 09/29/18 17:08 09/29/18 20:38 Bedside Glucose 91 193 209 Hemoglobin 10.5 L Hematocrit 32.5 L Activated 71.5 *H Partial Thromboplast Time Test 09/29/18 22:56 09/30/18 01:14 09/30/18 04:32 09/30/18 06:06 Activated 43.8 H 86.4 *H Partial Thromboplast Time Bedside Glucose 261 H 127 White Blood Count 7.2 Red Blood Count 3.44 L Hemoglobin 10.1 L Hematocrit 31.9 L Mean Corpuscular Volume 92.7 Mean Corpuscular 29.4 Hemoglobin Mean Corpuscular 31.7 L Hemoglobin Concent Red Cell Distribution 16.6 H Width Platelet Count 233 Mean Platelet Volume 10.9 H Immature Granulocytes % 0.700 H Neutrophils % 61.9 Lymphocytes % 15.7 Monocytes % 12.6 H Eosinophils % 8.0 H Basophils % 1.1 Nucleated Red Blood 0.0 Cells % Immature Granulocytes # 0.050 H Neutrophils # 4.4 Lymphocytes # 1.1 Monocytes # 0.9 Eosinophils # 0.6 H Basophils # 0.1 Nucleated Red Blood 0.0 Cells # Sodium Level 142 Potassium Level 3.7 Chloride Level 100 Carbon Dioxide Level 28 Anion Gap 14 H Blood Urea Nitrogen 31 H Creatinine 6.90 H Est Glomerular Filtrat 8 L Rate mL/min Glucose Level 119 Calcium Level 8.7 Test 09/30/18 08:10 09/30/18 09:41 Bedside Glucose 125 123 Medications Medication Current Medications Dextrose (D50w Syringe) ONCE PRN IV DECREASED GLUCOSE; Start 09/24/18 at 08:00 EZETIMIBE (Zetia) 10 mg DAILY PO Last administered on 09/30/18at 09:33; Admin Dose 10 MG; Start 09/25/18 at 09:00 Folic Acid (Folic Acid) 1 mg DAILY PO Last administered on 09/30/18at 09:33; Admin Dose 1 MG; Start 09/25/18 at 09:00 Multivit/Ca Carb/ B Cmplx/FA/Prenat (Isabel-Rbenda) 1 tab DAILY PO Last administered on 09/30/18 09:32; Admin Dose 1 TAB; Start 09/25/18 at 09:00 Sevelamer Carbonate (Renvela) 0.8 gm WITH MEALS PO Last administered on 09/30/18 09:32; Admin Dose 0.8 GM; Start 09/24/18 at 17:55 IV Flush (NS 3 ml) 3 ml PER PROTOCOL IV ; Start 09/24/18 at 12:30 Ondansetron HCl (Zofran Tab) 4 mg Q6H PRN PO NAUSEA/VOMITING Last administered on 09/27/18 13:41; Admin Dose 4 MG; Start 09/24/18 at 12:30 Acetaminophen (Tylenol Tab) 650 mg Q6H PRN PO .PAIN 1-3 OR TEMP Last admini stered on 09/29/18 19:43; Admin Dose 650 MG; Start 09/24/18 at 12:30 Diagnostic Test (Pha) (Accu-Chek) 1 ea 02 XX Last administered on 09/30/18 01:28; Admin Dose 1 EA; Start 09/25/18 at 02:00 Insulin Glargine (Lantus) 31 units DAILY@0800 SC Last administered on 09/29/18 08:36; Admin Dose 31 UNITS; Start 09/24/18 at 12:30 Insulin Aspart (Novolog Insulin Pen) NOVOLOG *MILD* ALGORI... Q4 SC Last admi nistered on 09/30/18 01:28; Admin Dose 4 UNIT; Start 09/24/18 at 13:00 Miscellaneous Information 1 ea NOTE XX ; Start 09/24/18 at 13:30 Glucose (Glutose) 15 gm Q15M PRN PO DECREASED GLUCOSE; Start 09/24/18 at 13:30 Glucose (Glutose) 22.5 gm Q15M PRN PO DECREASED GLUCOSE; Start 09/24/18 at 13:30 Dextrose (D50w Syringe) 25 ml Q15M PRN IV DECREASED GLUCOSE; Start 09/24/18 at 13:30 Dextrose (D50w Syringe) 50 ml Q15M PRN IV DECREASED GLUCOSE; Start 09/24/18 at 13:30 Glucagon (Glucagen) 1 mg Q15M PRN IM DECREASED GLUCOSE; Start 09/24/18 at 13:30 Glucose (Glutose) 15 gm Q15M PRN BUCCAL DECREASED GLUCOSE; Start 09/24/18 at 13:30 Albumin Human 100 ml @ 100 mls/hr WITH DIALYSIS PRN IV SBP <90 DURING D IALYSIS; Start 09/24/18 at 18:30 Sodium Chloride (NS) -To prime the dialy... DIRECTED FOR HD PRN IV HD; Start 09/24/18 at 18:30 Atorvastatin Calcium (Lipitor) 40 mg HS PO Last administered on 09/29/18 20:41; Admin Dose 40 MG; Start 09/25/18 at 21:00 Pentoxifylline (Trental) 400 mg DAILY PO Last administered on 09/30/18 09:33; Admin Dose 400 MG; Start 09/27/18 at 09:00 Docusate Sodium/ Ferrous Fumarate (Les-Sequels) 1 tab BID PO Last administered on 09/30/18 09:32; Admin Dose 1 TAB; Start 09/27/18 at 21:00; Stop 10/27/18 at 20:59 Furosemide (Lasix) 40 mg BID DIURETICS PO Last administered on 09/30/18 05:16; Admin Dose 40 MG; Start 09/26/18 at 18:00 Acetaminophen/ Hydrocodone Bitart ([place] (5/325)) 1 tab Q4H PRN PO PAIN LEVEL 1-5; Start 09/27/18 at 03:00 Acetaminophen/ Hydrocodone Bitart ([place] (5/325)) 2 tab Q4H PRN PO PAIN LEVEL 6-10 Last administered on 09/27/18at 03:27; Admin Dose 2 TAB; Start 09/27/18 at 03:00 Pantoprazole (Protonix Iv) 40 mg BID@06,18 IV Last administered on 09/30/18 05:16; Admin Dose 40 MG; Start 09/27/18 at 18:00 Nitroglycerin (Nitroglycerin (Sl Tab) 0.4 Mg) 1 tab Q5M PRN SL ANGINA Last administered on 09/28/18 06:05; Admin Dose 1 TAB; Start 09/28/18 at 03:30 Ipratropium [place] (Atrovent Hfa) 2 puff QID RESP THERAPY PRN INH SHORTNESS OF BREATH; Start 09/28/18 at 04:00 Levalbuterol (Xopenex Neb) 1.25 mg Q4H RESP THERAPY PRN HHN SHORTNESS OF BREATH; Start 09/28/18 at 04:00 Ascorbic Acid (Vitamin C) 500 mg BID PO Last administered on 09/30/18 09:32; Admin Dose 500 MG; Start 09/28/18 at 21:00; Stop 10/28/18 at 20:59 Sucralfate (Carafate Susp) 1 gm QID GTB Last administered on 09/30/18 09:32; Admin Dose 1 GM; Start 09/28/18 at 13:00; Stop 10/12/18 at 12:59 Isosorbide Mononitrate (Imdur) 60 mg DAILY PO Last administered on 09/30/18 09:33; Admin Dose 60 MG; Start 09/28/18 at 15:00 Aspirin (Aspirin) 81 mg DAILY PO Last administered on 09/30/18at 09:33; Admin Dose 81 MG; Start 09/30/18 at 09:00 Zolpidem Tartrate (Ambien) 5 mg HS PRN PO INSOMNIA Last administered on 09/29/18at 23:54; Admin Dose 5 MG; Start 09/30/18 at 00:00 DENZEL MICHAELS NP September 30, 2018 10:29
--- NOTE | 2018-09-30 12:00 | CONS ---
Assessment/Plan Assessment/Plan Assessment/Plan (Daily) 1. acute Hyperkalemia due to GI bleeding 2.Acute fluid overload with Uremia BUN 111 on admission 3. acute GI bleeding causing acute blood loss anemia 4. Severe Anemia with Hb 5.8 on admission 5. H/O HTN 6. H/O peripherla vascular disease 7. ESRD on HD Plan: s/p 5 units PRBC trnasfusion during this admission , Hb 11 , BP stable, S/p Status post EGD/colonoscopy 09/27/19 -Anastomosis ulcer -Normal colonoscopy s/p HD yesterday 3 L removed, -follow up at [facility] scheduled HD on MWF plan for LHC today , post cath pt will go to ICU Lasix 40mg pO BID on discharge, stop metabolzone since pt is already on HD will follow up Consultation Date/Type/Reason Admit Date/Time September 24, 2018 at 08:08 Initial Consult Date 09/24/18 Type of Consult NEPHROLOGY Requesting Provider: DENZEL MICHAELS NP Date/Time of Note DATE: 09/30/18 TIME: 12:00 24 HR Interval Summary Free Text/Dictation plan for Left heart cath today, s/p HD yesterday- 3 L removed , Bp stable Exam/Review of Systems Exam Vitals Vital Signs Date Temp Pulse Resp B/P (MAP) Pulse Ox O2 O2 Flow FiO2 Time Delivery Rate 09/30/18 84 08:00 09/30/18 98.0 18 127/62 98 07:57 (83) 09/29/18 Nasal 4.0 09:10 Cannula Intake and Output 09/29/18 09/29/18 09/30/18 1414:59 22:59 06:59 IntakeIntake Total 700 ml 470 ml OutputOutput Total 3600 ml BalanceBalance -3600 ml 700 ml 470 ml Exam Constitutional: Alert, awake no acute distress HEENT: [place] , Pale conjunctive, pale mucous membrane NECK: Supple without lymph node. CHEST: Slight wheezing on right upper lobe. HEART: S1, S2. Regular rate and rhythm. ABDOMEN: Soft/non tender with no rebound tenderness. Bowel sounds were present. EXTREMITIES: 3+edema on both LE NEUROLOGIC: Alert and oriented x3. No focal deficit. No sensory deficit. PSYCHOSOCIAL: No signs of depression. INTEGUMENTARY: left foot 3rd toe chronic ulcer. no oozing. Pale skin. Results Result Diagram: 09/30/18 0606 09/30/18 0606 Results 24hrs Laboratory Tests Test 09/29/18 12:08 09/29/18 16:51 09/29/18 17:08 09/29/18 20:38 Bedside Glucose 91 193 209 Hemoglobin 10.5 L Hematocrit 32.5 L Activated 71.5 *H Partial Thromboplast Time Test 09/29/18 22:56 09/30/18 01:14 09/30/18 04:32 09/30/18 06:06 Activated 43.8 H 86.4 *H Partial Thromboplast Time Bedside Glucose 261 H 127 White Blood Count 7.2 Red Blood Count 3.44 L Hemoglobin 10.1 L Hematocrit 31.9 L Mean Corpuscular Volume 92.7 Mean Corpuscular 29.4 Hemoglobin Mean Corpuscular 31.7 L Hemoglobin Concent Red Cell Distribution 16.6 H Width Platelet Count 233 Mean Platelet Volume 10.9 H Immature Granulocytes % 0.700 H Neutrophils % 61.9 Lymphocytes % 15.7 Monocytes % 12.6 H Eosinophils % 8.0 H Basophils % 1.1 Nucleated Red Blood 0.0 Cells % Immature Granulocytes # 0.050 H Neutrophils # 4.4 Lymphocytes # 1.1 Monocytes # 0.9 Eosinophils # 0.6 H Basophils # 0.1 Nucleated Red Blood 0.0 Cells # Sodium Level 142 Potassium Level 3.7 Chloride Level 100 Carbon Dioxide Level 28 Anion Gap 14 H Blood Urea Nitrogen 31 H Creatinine 6.90 H Est Glomerular Filtrat 8 L Rate mL/min Glucose Level 119 Calcium Level 8.7 Test 09/30/18 08:10 09/30/18 09:41 09/30/18 11:56 Bedside Glucose 125 123 128 Medications Medication Current Medications Dextrose (D50w Syringe) ONCE PRN IV DECREASED GLUCOSE; Start 09/24/18 at 08:00 EZETIMIBE (Zetia) 10 mg DAILY PO Last administered on 09/30/18at 09:33; Admin Dose 10 MG; Start 09/25/18 at 09:00 Folic Acid (Folic Acid) 1 mg DAILY PO Last administered on 09/30/18at 09:33; Admin Dose 1 MG; Start 09/25/18 at 09:00 Multivit/Ca Carb/ B Cmplx/FA/Prenat (Isabel-Brenda) 1 tab DAILY PO Last administered on 09/30/18 09:32; Admin Dose 1 TAB; Start 09/25/18 at 09:00 Sevelamer Carbonate (Renvela) 0.8 gm WITH MEALS PO Last administered on 09:32; Admin Dose 0.8 GM; Start 09/24/18 at 17:55 IV Flush (NS 3 ml) 3 ml PER PROTOCOL IV ; Start 09/24/18 at 12:30 Ondansetron HCl (Zofran Tab) 4 mg Q6H PRN PO NAUSEA/VOMITING Last administered on 09/27/18 13:41; Admin Dose 4 MG; Start 09/24/18 at 12:30 Acetaminophen (Tylenol Tab) 650 mg Q6H PRN PO .PAIN 1-3 OR TEMP Last administered on 09/29/18 19:43; Admin Dose 650 MG; Start 09/24/18 at 12:30 Diagnostic Test (Pha) (Accu-Chek) 1 ea 02 XX Last administered on 09/30/18 01:28; Admin Dose 1 EA; Start 09/25/18 at 02:00 Insulin Glargine (Lantus) 31 units DAILY@0800 SC Last administered on 09/29/18 08:36; Admin Dose 31 UNITS; Start 09/24/18 at 12:30 Insulin Aspart (Novolog Insulin Pen) NOVOLOG *MILD* ALGORI... Q4 SC Last administered on 09/30/18 01:28; Admin Dose 4 UNIT; Start 09/24/18 at 13:00 Miscellaneous Information 1 ea NOTE XX ; Start 09/24/18 at 13:30 Glucose (Glutose) 15 gm Q15M PRN PO DECREASED GLUCOSE; Start 09/24/18 at 13:30 Glucose (Glutose) 22.5 gm Q15M PRN PO DECREASED GLUCOSE; Start 09/24/18 at 13:30 Dextrose (D50w Syringe) 25 ml Q15M PRN IV DECREASED GLUCOSE; Start 09/24/18 at 13:30 Dextrose (D50w Syringe) 50 ml Q15M PRN IV DECREASED GLUCOSE; Start 09/24/18 at 13:30 Glucagon (Glucagen) 1 mg Q15M PRN IM DECREASED GLUCOSE; Start 09/24/18 at 13:30 Glucose (Glutose) 15 gm Q15M PRN BUCCAL DECREASED GLUCOSE; Start 09/24/18 at 13:30 Albumin Human 100 ml @ 100 mls/hr WITH DIALYSIS PRN IV SBP <90 DURING DIALYSIS; Start 09/24/18 at 18:30 Sodium Chloride (NS) -To prime the dialy... DIRECTED FOR HD PRN IV HD; Start 09/24/18 at 18:30 Atorvastatin Calcium (Lipitor) 40 mg HS PO Last administered on 09/29/18 20:41; Admin Dose 40 MG; Start 09/25/18 at 21:00 Pentoxifylline (Trental) 400 mg DAILY PO Last administered on 09/30/18 09:33; Admin Dose 400 MG; Start 09/27/18 at 09:00 Docusate Sodium/ Ferrous Fumarate (Les-Sequels) 1 tab BID PO Last administered on 09/30/18 09:32; Admin Dose 1 TAB; Start 09/27/18 at 21:00; Stop 10/27/18 at 20:59 Furosemide (Lasix) 40 mg BID DIURETICS PO Last administered on 09/30/18 05:16; Admin Dose 40 MG; Start 09/26/18 at 18:00 Acetaminophen/ Hydrocodone Bitart ([place] (5/325)) 1 tab Q4H PRN PO PAIN LEVEL 1-5; Start 09/27/18 at 03:00 Acetaminophen/ Hydrocodone Bitart ([place] (5/325)) 2 tab Q4H PRN PO PAIN LEVEL 6-10 Last administered on 09/27/18 03:27; Admin Dose 2 TAB; Start 09/27/18 at 03:00 Pantoprazole (Protonix Iv) 40 mg BID@06,18 IV Last administered on 09/30/18 05:16; Admin Dose 40 MG; Start 09/27/18 at 18:00 Nitroglycerin (Nitroglycerin (Sl Tab) 0.4 Mg) 1 tab Q5M PRN SL ANGINA Last administered on 09/28/18 06:05; Admin Dose 1 TAB; Start 09/28/18 at 03:30 Ipratropium [place] (Atrovent Hfa) 2 puff QID RESP THERAPY PRN INH SHORTNESS OF BREATH; Start 09/28/18 at 04:00 Levalbuterol (Xopenex Neb) 1.25 mg Q4H RESP THERAPY PRN HHN SHORTNESS OF BREATH; Start 09/28/18 at 04:00 Ascorbic Acid (Vitamin C) 500 mg BID PO Last administered on 09/30/18 09:32; Admin Dose 500 MG; Start 09/28/18 at 21:00; Stop 10/28/18 at 20:59 Sucralfate (Carafate Susp) 1 gm QID GTB Last administered on 09/30/18 09:32; Admin Dose 1 GM; Start 09/28/18 at 13:00; Stop 10/12/18 at 12:59 Isosorbide Mononitrate (Imdur) 60 mg DAILY PO Last administered on 09/30/18 09:33; Admin Dose 60 MG; Start 09/28/18 at 15:00 Aspirin (Aspirin) 81 mg DAILY PO Last administered on 09/30/18 09:33; Admin Dose 81 MG; Start 09/30/18 at 09:00 Zolpidem Tartrate (Ambien) 5 mg HS PRN PO INSOMNIA Last administered on 09/29/18at 23:54; Admin Dose 5 MG; Start 09/30/18 at 00:00 RAQUEL MCDOWELL MD September 30, 2018 12:00
[2018-09-30] MEDS ORDERED: LIDOCAINE 1% (MDV) 20 ML INJ ONE (13:08)
[2018-09-30] MEDS ORDERED: IODIXANOL LOCM 100 ML BTL ONE (13:08)
[2018-09-30] MEDS ORDERED: HEPARIN 1000 UNITS/ML 10 ML INJ ONE (13:08)
[2018-09-30] MEDS ORDERED: VERAPAMIL 5 MG INJ ONE (13:09)
[2018-09-30] MEDS ORDERED: NITROGLYCERIN (IC) 100 MCG/ML INJ ONE (13:09)
[2018-09-30] MEDS ORDERED: FENTAnyl 50 MCG/ML VIAL ONE (13:09)
[2018-09-30] MEDS ORDERED: MIDAZOLAM 1 MG/ML 2 ML INJ ONE (13:09)
--- NOTE | 2018-09-30 15:11 | OPR ---
Date/Time of Note Date/Time of Note DATE: 09/30/18 TIME: 15:10 Operative Report Procedure Date: September 30, 2018 Preoperative Diagnosis NSTEMI Postoperative Diagnosis same Operation/Procedure Performed see details Surgeon see signature line Gas Examiner none Anesthesia Type: moderate sedation Estimated Blood Loss: minimal Transfusion none Specimen none Grafts/Implants none Complications none Procedure Description Procedure Date:09/30/2018 Interpretive Program Coordinator/surgeon:Darrell Hernandez MD. Procedures Performed: 1)Left heart catheterization with selective left and right coronary angiography. 2)Right femoral angiogram Pre-operative Diagnosis:NSTEMI Post-operative Diagnosis: NSTEMI Indications: 67 yo M with multiple medical problems who presented with upper GI Bleed and anemia. EGD showed an anastomotic ulcer which was not bleeding. He then had chest pain and NSTEMI with trop 1. In conjunction with GI, the decision was made to put the pt on a heparin drip to see if he would bleed prior to cath in case he needed intervention and stenting. He had no bleeding and hgb remained stable. The decision was made to proceed with cath Description of Procedure: After informed consent, the patient was brought to the cardiac catheterization lab. The procedure site was prepped and draped in usual manner. The patient was premedicated with versed 1 mg and fentanyl 25 mcg. 2 mL lidocaine was injected into the right wrist. With ultrasound guidance, the 6/5 montserratian sheath was attempted to be inserted into the right radial but due to spasm only partially went in. This was then aborted for pt safety and the decision was made to proceed with right femoral approach. Using ultrasound guidance and micropuncture, access was obtained in the right common femoral artery. Angiography confirmed proper placement. Then this was exchanged for a 6 montserratian sheath over an amplatz wire due to vessel calcification. Next using the JL4 and JR4, selective angiography of the left and right coronary arteries were obtained. The JR entered the ventricle so hemodynamics were obtained. Left ventricle angiography was not obtained. Next all equipment was removed and hemostasis was obtained by TR band for the right radial and manual pressure for the groin.. Findings: Anatomy/Hemodynamics: Left main: ostial 20% LAD: ostial to prox diffuse 50% disease with 70% at a large diag, then mid 60% followed by long 95% disease. Diagonal:small diffusely diseased vessel Ramus: small vessel with ostial 99% Circumflex: dominant large vessel with mid 40% Obtuse marginal 1 ostial 50% Obtuse marginal 2 bifurcating vessel with diffuse long prox 95% Obtuse marginal 4 prox 70% Cx PDA prox tandem 80% lesions RCA: small nondominant vessel with diffuse disease LV angiography:not done LV-Ao:no gradient LVEDP: 6 mmHg Contrast used:60 mL Fluoroscopy time: 5.5 min Estimated blood loss<10 mL. Specimen: none Grafts/implants: none Complications: none Assessment: NSTEMI/.CAD: s/p cath with diffuse multivessel CAD best suitable for CABG for this diabetic pt GI bleed: no recurrence even on heparin drip Plan: -CABG eval -see progress note for further treatment plan DARRELL HERNANDEZ September 30, 2018 15:11
--- NOTE | 2018-09-30 15:30 | CONS ---
Assessment/Plan Assessment/Plan Hospital Course (Demo Recall) NSTEMI: chest pain 09/28 3 am and none since. Trop peak 1.1 and trended down. S/p cath 09/30/18 with diffuse multivessel CAD best suitable for CABG for this diabetic pt Upper GI bleed: due to anastomotic ulcer seen on EGD 09/26. No bleeding since even on heparin drip Anemia: due to above. s/p 5 units PRBCs. Stable Wenckebach: [place] 1. Not on BB. No pauses or high grade block. 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 Now stopped DM ESRD on HD MWF HTN H/o [place] -CABG eval -ASA 81mg daily -continue imdur 60mg -lipitor 40mg -lasix 40mg PO BID -HD per nephrology Consultation Date/Type/Reason Admit Date/Time September 24, 2018 at 08:08 Initial Consult Date 09/24/18 Type of Consult Cardiology Requesting Provider: DENZEL MICHAELS NP Date/Time of Note DATE: 09/30/18 TIME: 15:28 24 HR Interval Summary Free Text/Dictation No bleeding overnight. Hgb stable. No chest pain. s/p cath. See results in separate note Exam/Review of Systems Vital Signs Vitals Vital Signs Date Temp Pulse Resp B/P (MAP) Pulse Ox O2 O2 Flow FiO2 Time Delivery Rate 09/30/18 98.0 73 18 135/70 98 12:36 (91) 09/29/18 Nasal 4.0 09:10 Cannula Intake and Output 09/29/18 09/29/18 09/30/18 1515:00 23:00 07:00 IntakeIntake Total 700 ml 470 ml OutputOutput Total 3600 ml BalanceBalance -3600 ml 700 ml 470 ml Exam Constitutional: alert, oriented Psych: no complaints, nl mood/affect Head: normocephalic, atraumatic Neck: No jvd Respiratory: clear to auscultation, diminished breath sounds Cardiovascular: regular rate and rhythm, systolic murmur (2/6 GREGORY); No edema Gastrointestinal: soft, non-tender; No distended 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: nl mental status, nl speech Labs Result Diagram: 09/30/18 0606 09/30/18 0606 Results 24hrs Laboratory Tests Test 09/29/18 16:51 09/29/18 17:08 09/29/18 20:38 09/29/18 22:56 Hemoglobin 10.5 L Hematocrit 32.5 L Activated 71.5 *H 43.8 H Partial Thromboplast Time Bedside Glucose 193 209 Test 09/30/18 01:14 09/30/18 04:32 09/30/18 06:06 09/30/18 08:10 Bedside Glucose 261 H 127 125 White Blood Count 7.2 Red Blood Count 3.44 L Hemoglobin 10.1 L Hematocrit 31.9 L Mean Corpuscular Volume 92.7 Mean Corpuscular 29.4 Hemoglobin Mean Corpuscular 31.7 L Hemoglobin Concent Red Cell Distribution 16.6 H Width Platelet Count 233 Mean Platelet Volume 10.9 H Immature Granulocytes % 0.700 H Neutrophils % 61.9 Lymphocytes % 15.7 Monocytes % 12.6 H Eosinophils % 8.0 H Basophils % 1.1 Nucleated Red Blood 0.0 Cells % Immature Granulocytes # 0.050 H Neutrophils # 4.4 Lymphocytes # 1.1 Monocytes # 0.9 Eosinophils # 0.6 H Basophils # 0.1 Nucleated Red Blood 0.0 Cells # Activated 86.4 *H Partial Thromboplast Time Sodium Level 142 Potassium Level 3.7 Chloride Level 100 Carbon Dioxide Level 28 Anion Gap 14 H Blood Urea Nitrogen 31 H Creatinine 6.90 H Est Glomerular Filtrat 8 L Rate mL/min Glucose Level 119 Calcium Level 8.7 Test 09/30/18 09:41 09/30/18 11:56 09/30/18 12:44 Bedside Glucose 123 128 Activated 33.4 Partial Thromboplast Time Medications Medications Current Medications Dextrose (D50w Syringe) ONCE PRN IV DECREASED GLUCOSE; Start 09/24/18 at 08:00 EZETIMIBE (Zetia) 10 mg DAILY PO Last administered on 09/30/18at 09:33; Admin Dose 10 MG; Start 09/25/18 at 09:00 Folic Acid (Folic Acid) 1 mg DAILY PO Last administered on 09/30/18at 09:33; Admin Dose 1 MG; Start 09/25/18 at 09:00 Multivit/Ca Carb/ B Cmplx/FA/Prenat (Isabel-Brenda) 1 tab DAILY PO Last administered on 09/30/18 09:32; Admin Dose 1 TAB; Start 09/25/18 at 09:00 Sevelamer Carbonate (Renvela) 0.8 gm WITH MEALS PO Last administered on 09/30/18 11:59; Admin Dose 0.8 GM; Start 09/24/18 at 17:55 IV Flush (NS 3 ml) 3 ml PER PROTOCOL IV ; Start 09/24/18 at 12:30 Ondansetron HCl (Zofran Tab) 4 mg Q6H PRN PO NAUSEA/VOMITING Last administered on 09/27/18 13:41; Admin Dose 4 MG; Start 09/24/18 at 12:30 Acetaminophen (Tylenol Tab) 650 mg Q6H PRN PO .PAIN 1-3 OR TEMP Last administered on 09/29/18 19:43; Admin Dose 650 MG; Start 09/24/18 at 12:30 Diagnostic Test (Pha) (Accu-Chek) 1 ea 02 XX Last administered on 09/30/18 01:28; Admin Dose 1 EA; Start 09/25/18 at 02:00 Insulin Glargine (Lantus) 31 units DAILY@0800 SC Last administered on 09/29/18 08:36; Admin Dose 31 UNITS; Start 09/24/18 at 12:30 Insulin Aspart (Novolog Insulin Pen) NOVOLOG *MILD* ALGORI... Q4 SC Last administered on 09/30/18 01:28; Admin Dose 4 UNIT; Start 09/24/18 at 13:00 Miscellaneous Information 1 ea NOTE XX ; Start 09/24/18 at 13:30 Glucose (Glutose) 15 gm Q15M PRN PO DECREASED GLUCOSE; Start 09/24/18 at 13:30 Glucose (Glutose) 22.5 gm Q15M PRN PO DECREASED GLUCOSE; Start 09/24/18 at 13:30 Dextrose (D50w Syringe) 25 ml Q15M PRN IV DECREASED GLUCOSE; Start 09/24/18 at 13:30 Dextrose (D50w Syringe) 50 ml Q15M PRN IV DECREASED GLUCOSE; Start 09/24/18 at 13:30 Glucagon (Glucagen) 1 mg Q15M PRN IM DECREASED GLUCOSE; Start 09/24/18 at 13:30 Glucose (Glutose) 15 gm Q15M PRN BUCCAL DECREASED GLUCOSE; Start 09/24/18 at 13:30 Albumin Human 100 ml @ 100 mls/hr WITH DIALYSIS PRN IV SBP <90 DURING DIALYSIS; Start 09/24/18 at 18:30 Sodium Chloride (NS) -To prime the dialy... DIRECTED FOR HD PRN IV HD; Start 09/24/18 at 18:30 Atorvastatin Calcium (Lipitor) 40 mg HS PO Last administered on 09/29/18 20:41; Admin Dose 40 MG; Start 09/25/18 at 21:00 Pentoxifylline (Trental) 400 mg DAILY PO Last administered on 09/30/18 09:33; Admin Dose 400 MG; Start 09/27/18 at 09:00 Docusate Sodium/ Ferrous Fumarate (Les-Sequels) 1 tab BID PO Last administered on 09/30/18 09:32; Admin Dose 1 TAB; Start 09/27/18 at 21:00; Stop 10/27/18 at 20:59 Furosemide (Lasix) 40 mg BID DIURETICS PO Last administered on 09/30/18 05:16; Admin Dose 40 MG; Start 09/26/18 at 18:00 Acetaminophen/ Hydrocodone Bitart ([place] (5/325)) 1 tab Q4H PRN PO PAIN LEVEL 1-5; Start 09/27/18 at 03:00 Acetaminophen/ Hydrocodone Bitart ([place] (5/325)) 2 tab Q4H PRN PO PAIN LEVEL 6-10 Last administered on 09/27/18 03:27; Admin Dose 2 TAB; Start 09/27/18 at 03:00 Pantoprazole (Protonix Iv) 40 mg BID@06,18 IV Last administered on 09/30/18 05:16; Admin Dose 40 MG; Start 09/27/18 at 18:00 Nitroglycerin (Nitroglycerin (Sl Tab) 0.4 Mg) 1 tab Q5M PRN SL ANGINA Last administered on 09/28/18 06:05; Admin Dose 1 TAB; Start 09/28/18 at 03:30 Ipratropium [place] (Atrovent Hfa) 2 puff QID RESP THERAPY PRN INH SHORTNESS OF BREATH; Start 09/28/18 at 04:00 Levalbuterol (Xopenex Neb) 1.25 mg Q4H RESP THERAPY PRN HHN SHORTNESS OF BREATH; Start 09/28/18 at 04:00 Ascorbic Acid (Vitamin C) 500 mg BID PO Last administered on 09/30/18 09:32; Admin Dose 500 MG; Start 09/28/18 at 21:00; Stop 10/28/18 at 20:59 Sucralfate (Carafate Susp) 1 gm QID GTB Last administered on 09/30/18at 12:00; Admin Dose 1 GM; Start 09/28/18 at 13:00; Stop 10/12/18 at 12:59 Isosorbide Mononitrate (Imdur) 60 mg DAILY PO Last administered on 09/30/18 09:33; Admin Dose 60 MG; Start 09/28/18 at 15:00 Aspirin (Aspirin) 81 mg DAILY PO Last administered on 09/30/18 09:33; Admin Dose 81 MG; Start 09/30/18 at 09:00 Zolpidem Tartrate (Ambien) 5 mg HS PRN PO INSOMNIA Last administered on 09/29/18at 23:54; Admin Dose 5 MG; Start 09/30/18 at 00:00 LAVON SEE September 30, 2018 15:30
[2018-09-30] MEDS: HYDROCODONE/APAP (5/325) TAB PO PRN (19:25)
[2018-09-30] MEDS: ATORVASTATIN 40 MG TAB PO SCH (20:33)
--- NOTE | 2018-09-30 22:41 | PN ---
Date/Time of Note Date/Time of Note DATE: 09/30/18 TIME: 22:41 Assessment/Plan Lines/Catheters IV Catheter Type (from [facility]): Saline [facility] [place] in Place (from [facility]): No Assessment/Plan Chief Complaint/Hosp Course -No current vascular intervention at this time given GIB -LLE toe gangrene dry and stable -Will continue to monitor his progress Subjective 24 Hr Interval Summary no new vascular events overnight Exam/Review of Systems Vital Signs Vitals Vital Signs Date Temp Pulse Resp B/P (MAP) Pulse Ox O2 O2 Flow FiO2 Time Delivery Rate 10/02/18 89 14 138/60 97 Room Air 09:00 (86) 10/02/18 98.3 07:00 09/29/18 4.0 09:10 Intake and Output 10/01/18 10/01/18 10/02/18 1414:59 22:59 06:59 IntakeIntake Total 440 ml 210 ml 100 ml OutputOutput Total 3850 ml 120 ml 0 ml BalanceBalance -3410 ml 90 ml 100 ml Exam Free Text/Dictation GENERAL: Alert and oriented x3, no apparent distress. HEENT: Normocephalic, atraumatic. Mucosa moist. NECK: Supple, no carotid bruit. PULMONARY: Clear to auscultation bilaterally. No crackles. CARDIOVASCULAR: S1, S2 present. Irregularly irregular. ABDOMEN: Soft, nontender, nondistended. Bowel sounds positive. Large truncal obesity. EXTREMITIES: Right lower extremity palpable femoral pulse, nonpalpable pedal pulse. Motor, sensory intact. Cap refill 3 to 4 seconds. Presence of varicose veins and large leg. Left lower extremity palpable femoral pulse, nonpalpable pedal pulse. Motor, sensory intact. Cap refill 3 to 4 seconds. Third toe gangrene site. First and second toe with previous bluish discoloration. It appears to be resolving.but becoming gangrene Varicose veins and edema of the left lower extremity with presence of mild lipodermatosclerosis. Left upper extremity: Palpable brachial pulse, motor and sensory intact, fistula with bruit and thrill present, sutures to be removed Results Result Diagram: 10/02/18 0449 10/02/18 0449 VANIA PEREYRA MD September 30, 2018 22:41
[2018-09-30] MEDS: ZOLPIDEM 5 MG TAB PO PRN (23:02)
[2018-10-01] VITALS (36 sets, daily range): BP systolic 103–142; BP diastolic 42–95; PULSE 46–98; RESP 12–22
[2018-10-01] MEDS: INSULIN ASPART [NOVOLOG] 3 ML PEN SC SCH ×6 (01:00→21:00)
[2018-10-01] MEDS: ACCU-CHEK XX SCH (02:04)
[2018-10-01] MEDS: PANTOPRAZOLE 40 MG INJ IV SCH ×2 (05:55→17:53)
[2018-10-01] MEDS: FUROSEMIDE 40 MG TAB PO SCH ×2 (05:56→17:53)
--- NOTE | 2018-10-01 07:24 | CONS ---
Assessment/Plan Assessment/Plan Assessment/Plan (Daily) 67 year old male with multiple medical problems recent UGI bleed and demand ischemia with bump in troponin. Cath shows severe 3v CAD. Would recommend CABG. Question of timing considering he just had large UGI bleed. Will discuss with cardiology and family Consultation Date/Type/Reason Admit Date/Time September 24, 2018 at 08:08 Date of Consultation: October 01, [address] SURGERY Reason for Consultation EVAL FOR CABG Requesting Provider: LAVON SEE Date/Time of Note DATE: 10/01/18 TIME: 07:18 Hx of Present Illness 67 year old male with ESRD, PVD with left foot dry gangrene, history of bilroth 1 bypass, recent UGI bleed requiring 5 untis blood, troponin elevation, cath showing severe 3v CAD. We are asked to see regarding CABG Constitutional: no complaints, improved Eyes: no complaints ENT: no complaints Cardiovascular: chest pain Gastrointestinal: blood Genitourinary: no complaints Musculoskeletal: no complaints Skin: no complaints Neurologic: no complaints Endocrine: no complaints Lymphatic: no complaints Psychological: no complaints, nl mood/affect Immunologic: no complaints Past Medical History Medical History: angina, high cholesterol, hypertension, other (PVD, ESRD on HD ) Home Meds Reported Medications Clopidogrel Bisulfate (Clopidogrel) 75 Mg Tablet, 75 MG PO DAILY, #30 TAB 09/24/18 Ezetimibe* (Zetia*) 10 Mg Tablet, 10 MG PO DAILY, TAB 08/29/18 Insulin Lispro (Humalog Kwikpen U-100) 100 Unit/1 Ml Insuln.pen, 0 SQ SLIDING SCALE, EA 08/28/18 Insulin Glargine* (Lantus*) 100 Unit/Ml Soln, 0 SC QHS, #1 VIAL 45-52 UNITS 08/28/18 Metolazone* (Metolazone*) 5 Mg Tablet, 10 MG PO BID, TAB 08/28/18 Multivit/Ca Carb/B Cmplx/Fa* (Isabel-Brenda*) 1 Tab Tab, 1 TAB PO DAILY, TAB 08/28/18 Furosemide* (Furosemide*) 80 Mg Tablet, 160 MG PO BID, #60 TAB 08/28/18 Folic Acid* (Folic Acid*) 1 Mg Tablet, 1 MG PO DAILY, TAB 08/28/18 Apixaban* (Eliquis*) 5 Mg Tablet, 5 MG PO BID, TAB 08/28/18 Sevelamer Carbonate* (Renvela*) 800 Mg Tablet, 0.8 GM PO WITH MEALS, TAB 08/28/18 Discontinued Scripts Clopidogrel Bisulfate (Clopidogrel) 75 Mg Tablet, 75 MG PO DAILY, #60 TAB Prov:LORI VINES 09/01/18 Medications Current Medications Dextrose (D50w Syringe) ONCE PRN IV DECREASED GLUCOSE; Start 09/24/18 at 08:00 EZETIMIBE (Zetia) 10 mg DAILY PO Last administered on 09/30/18 09:33; Admin Dose 10 MG; Start 09/25/18 at 09:00 Folic Acid (Folic Acid) 1 mg DAILY PO Last administered on 09/30/18 09:33; Admin Dose 1 MG; Start 09/25/18 at 09:00 Multivit/Ca Carb/ B Cmplx/FA/Prenat (Isabel-Brenda) 1 tab DAILY PO Last administered on 09/30/18 09:32; Admin Dose 1 TAB; Start 09/25/18 at 09:00 Sevelamer Carbonate (Renvela) 0.8 gm WITH MEALS PO Last administered on 09/30/18 18:09; Admin Dose 0.8 GM; Start 09/24/18 at 17:55 IV Flush (NS 3 ml) 3 ml PER PROTOCOL IV ; Start 09/24/18 at 12:30 Ondansetron HCl (Zofran Tab) 4 mg Q6H PRN PO NAUSEA/VOMITING Last administered on 09/27/18 13:41; Admin Dose 4 MG; Start 09/24/18 at 12:30 Acetaminophen (Tylenol Tab) 650 mg Q6H PRN PO .PAIN 1-3 OR TEMP Last administered on 09/29/18 19:43; Admin Dose 650 MG; Start 09/24/18 at 12:30 Diagnostic Test (Pha) (Accu-Chek) 1 ea 02 XX Last administered on 10/01/18 02:04; Admin Dose 1 EA; Start 09/25/18 at 02:00 Insulin Glargine (Lantus) 31 units DAILY@0800 SC Last administered on 09/29/18 08:36; Admin Dose 31 UNITS; Start 09/24/18 at 12:30 Insulin Aspart (Novolog Insulin Pen) NOVOLOG *MILD* ALGORI... Q4 SC Last administered on 09/30/18at 20:46; Admin Dose 1 UNIT; Start 09/24/18 at 13:00 Miscellaneous Information 1 ea NOTE XX ; Start 09/24/18 at 13:30 Glucose (Glutose) 15 gm Q15M PRN PO DECREASED GLUCOSE; Start 09/24/18 at 13:30 Glucose (Glutose) 22.5 gm Q15M PRN PO DECREASED GLUCOSE; Start 09/24/18 at 13:30 Dextrose (D50w Syringe) 25 ml Q15M PRN IV DECREASED GLUCOSE; Start 09/24/18 at 13:30 Dextrose (D50w Syringe) 50 ml Q15M PRN IV DECREASED GLUCOSE; Start 09/24/18 at 13:30 Glucagon (Glucagen) 1 mg Q15M PRN IM DECREASED GLUCOSE; Start 09/24/18 at 13:30 Glucose (Glutose) 15 gm Q15M PRN BUCCAL DECREASED GLUCOSE; Start 09/24/18 at 13:30 Albumin Human 100 ml @ 100 mls/hr WITH DIALYSIS PRN IV SBP <90 DURING DIALYSIS; Start 09/24/18 at 18:30 Sodium Chloride (NS) -To prime the dialy... DIRECTED FOR HD PRN IV HD; Start 09/24/18 at 18:30 Atorvastatin Calcium (Lipitor) 40 mg HS PO Last administered on 09/30/18at 20:33; Admin Dose 40 MG; Start 09/25/18 at 21:00 Pentoxifylline (Trental) 400 mg DAILY PO Last administered on 09/30/18at 09:33; Admin Dose 400 MG; Start 09/27/18 at 09:00 Docusate Sodium/ Ferrous Fumarate (Les-Sequels) 1 tab BID PO Last ad ministered on 09/30/18 20:33; Admin Dose 1 TAB; Start 09/27/18 at 21:00; Stop 10/27/18 at 20:59 Furosemide (Lasix) 40 mg BID DIURETICS PO Last administered on 10/01/18 05:56; Admin Dose 40 MG; Start 09/26/18 at 18:00 Acetaminophen/ Hydrocodone Bitart ([place] (5/325)) 1 tab Q4H PRN PO PAIN LEVEL 1-5; Start 09/27/18 at 03:00 Acetaminophen/ Hydrocodone Bitart ([place] (5/325)) 2 tab Q4H PRN PO PAIN LEVEL 6-10 Last administered on 09/30/18 19:25; Admin Dose 2 TAB; Start 09/27/18 at 03:00 Pantoprazole (Protonix Iv) 40 mg BID@06,18 IV Last administered on 10/01/18 05:55; Admin Dose 40 MG; Start 09/27/18 at 18:00 Nitroglycerin (Nitroglycerin (Sl Tab) 0.4 Mg) 1 tab Q5M PRN SL ANGINA Last administered on 09/28/18 06:05; Admin Dose 1 TAB; Start 09/28/18 at 03:30 Ipratropium [place] (Atrovent Hfa) 2 puff QID RESP THERAPY PRN INH SHORTNESS OF BREATH; Start 09/28/18 at 04:00 Levalbuterol (Xopenex Neb) 1.25 mg Q4H RESP THERAPY PRN HHN SHORTNESS OF BREATH; Start 09/28/18 at 04:00 Ascorbic Acid (Vitamin C) 500 mg BID PO Last administered on 09/30/18 20:33; Admin Dose 500 MG; Start 09/28/18 at 21:00; Stop 10/28/18 at 20:59 Sucralfate (Carafate Susp) 1 gm QID GTB Last administered on 09/30/18 20:33; Admin Dose 1 GM; Start 09/28/18 at 13:00; Stop 10/12/18 at 12:59 Isosorbide Mononitrate (Imdur) 60 mg DAILY PO Last administered on 09/30/18 09:33; Admin Dose 60 MG; Start 09/28/18 at 15:00 Aspirin (Aspirin) 81 mg DAILY PO Last administered on 09/30/18 09:33; Admin Dose 81 MG; Start 09/30/18 at 09:00 Zolpidem Tartrate (Ambien) 5 mg HS PRN PO INSOMNIA Last administered on 09/30/18 23:02; Admin Dose 5 MG; Start 09/30/18 at 00:00 Epoetin Jero-epbx (Retacrit) 6,000 unit MoWeFr@1700 SC ; Start 10/01/18 at 17:00 Allergies: Coded Allergies: No Known Allergies (Verified Allergy, Mild, 09/24/18) Past Surgical History Past Surgical Hx: other (AV fistula for HD access ) Family History Significant Family History: heart disease, diabetes, hypertension Social History Alcohol Use: none Smoking Status: Never smoker Drug Use: none Exam/Review of Systems Exam Vitals Vital Signs Date Temp Pulse Resp B/P (MAP) Pulse Ox O2 O2 Flow FiO2 Time Delivery Rate 10/01/18 97 19 124/70 92 Room Air 06:00 (88) 10/01/18 98.5 04:00 09/29/18 4.0 09:10 Intake and Output 09/30/18 09/30/18 10/01/18 1515:00 23:00 07:00 IntakeIntake Total 100 ml 35 ml OutputOutput Total 75 ml 50 ml BalanceBalance 25 ml -15 ml Constitutional: alert, oriented, well developed Psych: no complaints, nl mood/affect Head: normocephalic, atraumatic Eyes: nl conjunctiva, EOMI, nl lids, nl sclera, PERRL ENMT: nl external ears & nose, nl lips & teeth, nl nasal mucosa & septum Neck: supple, non-tender Respiratory: clear to auscultation, normal air movement Cardiovascular: regular rate and rhythm, nl pulses Gastrointestinal: soft, nl liver, spleen, non-tender Musculoskeletal: nl extremities to inspection, nl gait and stance Extremities: edema, other (first 3 toes left dry gangrene) 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, nl mental status, nl speech, nl strength Skin: nl turgor; No rash or lesions Lymph: nl lymph nodes Results Result Diagram: 10/01/18 0448 10/01/18 0448 Results 24hrs Laboratory Tests Test 09/30/18 08:10 09/30/18 09:41 09/30/18 11:56 09/30/18 12:44 Bedside Glucose 125 123 128 Activated 33.4 Partial Thromboplas t Time Test 09/30/18 17:17 09/30/18 20:37 10/01/18 01:03 10/01/18 04:46 Bedside Glucose 117 164 127 120 Test 10/01/18 04:48 10/01/18 04:50 White Blood Count 8.6 Red Blood Count 3.33 L Hemoglobin 9.7 L Hematocrit 30.4 L Mean Corpuscular 91.3 Volume Mean Corpuscular 29.1 Hemoglobin Mean Corpuscular 31.9 L Hemoglobin Concent Red Cell 16.5 H Distribution Width Platelet Count 269 Mean Platelet 10.8 H Volume Immature 0.400 Granulocytes % Neutrophils % 70.4 Lymphocytes % 11.0 L Monocytes % 10.7 Eosinophils % 6.4 Basophils % 1.1 Nucleated Red Blood 0.0 Cells % Immature 0.030 Granulocytes # Neutrophils # 6.0 Lymphocytes # 0.9 Monocytes # 0.9 Eosinophils # 0.6 H Basophils # 0.1 Nucleated Red Blood 0.0 Cells # Sodium Level 140 Potassium Level 3.8 Chloride Level 100 Carbon Dioxide 28 Level Anion Gap 12 Blood Urea Nitrogen 38 H Creatinine 8.71 H Est Glomerular 6 L Filtrat Rate mL/min Glucose Level 113 Calcium Level 8.3 L Lab Scanned Report BLOOD TRANSFUSION Medications Medication Current Medications Dextrose (D50w Syringe) ONCE PRN IV DECREASED GLUCOSE; Start 09/24/18 at 08:00 EZETIMIBE (Zetia) 10 mg DAILY PO Last administered on 09/30/18 09:33; Admin Dose 10 MG; Start 09/25/18 at 09:00 Folic Acid (Folic Acid) 1 mg DAILY PO Last administered on 09/30/18 09:33; Admin Dose 1 MG; Start 09/25/18 at 09:00 Multivit/Ca Carb/ B Cmplx/FA/Prenat (Isabel-Brenda) 1 tab DAILY PO Last administered on 09/30/18 09:32; Admin Dose 1 TAB; Start 09/25/18 at 09:00 Sevelamer Carbonate (Renvela) 0.8 gm WITH MEALS PO Last administered on 09/30/18 18:09; Admin Dose 0.8 GM; Start 09/24/18 at 17:55 IV Flush (NS 3 ml) 3 ml PER PROTOCOL IV ; Start 09/24/18 at 12:30 Ondansetron HCl (Zofran Tab) 4 mg Q6H PRN PO NAUSEA/VOMITING Last administered on 09/27/18 13:41; Admin Dose 4 MG; Start 09/24/18 at 12:30 Acetaminophen (Tylenol Tab) 650 mg Q6H PRN PO .PAIN 1-3 OR TEMP Last administered on 5/6/19at 19:43; Admin Dose 650 MG; Start 09/24/18 at 12:30 Diagnostic Test (Pha) (Accu-Chek) 1 ea 02 XX Last administered on 10/01/18at 02:04; Admin Dose 1 EA; Start 09/25/18 at 02:00 Insulin Glargine (Lantus) 31 units DAILY@0800 SC Last administered on 09/29/18at 08:36; Admin Dose 31 UNITS; Start 09/24/18 at 12:30 Insulin Aspart (Novolog Insulin Pen) NOVOLOG *MILD* ALGORI... Q4 SC Last administered on 09/30/18at 20:46; Admin Dose 1 UNIT; Start 09/24/18 at 13:00 Miscellaneous Information 1 ea NOTE XX ; Start 09/24/18 at 13:30 Glucose (Glutose) 15 gm Q15M PRN PO DECREASED GLUCOSE; Start 09/24/18 at 13:30 Glucose (Glutose) 22.5 gm Q15M PRN PO DECREASED GLUCOSE; Start 09/24/18 at 13:30 Dextrose (D50w Syringe) 25 ml Q15M PRN IV DECREASED GLUCOSE; Start 09/24/18 at 13:30 Dextrose (D50w Syringe) 50 ml Q15M PRN IV DECREASED GLUCOSE; Start 09/24/18 at 13:30 Glucagon (Glucagen) 1 mg Q15M PRN IM DECREASED GLUCOSE; Start 09/24/18 at 13:30 Glucose (Glutose) 15 gm Q15M PRN BUCCAL DECREASED GLUCOSE; Start 09/24/18 at 13:30 Albumin Human 100 ml @ 100 mls/hr WITH DIALYSIS PRN IV SBP <90 DURING DIALYSIS; Start 09/24/18 at 18:30 Sodium Chloride (NS) -To prime the dialy... DIRECTED FOR HD PRN IV HD; Start 09/24/18 at 18:30 Atorvastatin Calcium (Lipitor) 40 mg HS PO Last administered on 09/30/18at 20:33; Admin Dose 40 MG; Start 09/25/18 at 21:00 Pentoxifylline (Trental) 400 mg DAILY PO Last administered on 09/30/18at 09:33; Admin Dose 400 MG; Start 09/27/18 at 09:00 Docusate Sodium/ Ferrous Fumarate (Les-Sequels) 1 tab BID PO Last administered on 09/30/18 20:33; Admin Dose 1 TAB; Start 09/27/18 at 21:00; Stop 10/27/18 at 20:59 Furosemide (Lasix) 40 mg BID DIURETICS PO Last administered on 10/01/18 05:56; Admin Dose 40 MG; Start 09/26/18 at 18:00 Acetaminophen/ Hydrocodone Bitart ([place] (5/325)) 1 tab Q4H PRN PO PAIN LEVEL 1-5; Start 09/27/18 at 03:00 Acetaminophen/ Hydrocodone Bitart ([place] (5/325)) 2 tab Q4H PRN PO PAIN LEVEL 6-10 Last administered on 09/30/18 19:25; Admin Dose 2 TAB; Start 09/27/18 at 03:00 Pantoprazole (Protonix Iv) 40 mg BID@06,18 IV Last administered on 10/01/18 05:55; Admin Dose 40 MG; Start 09/27/18 at 18:00 Nitroglycerin (Nitroglycerin (Sl Tab) 0.4 Mg) 1 tab Q5M PRN SL ANGINA Last administered on 09/28/18 06:05; Admin Dose 1 TAB; Start 09/28/18 at 03:30 Ipratropium [place] (Atrovent Hfa) 2 puff QID RESP THERAPY PRN INH SHORTNESS OF BREATH; Start 09/28/18 at 04:00 Levalbuterol (Xopenex Neb) 1.25 mg Q4H RESP THERAPY PRN HHN SHORTNESS OF BREATH; Start 09/28/18 at 04:00 Ascorbic Acid (Vitamin C) 500 mg BID PO Last administered on 09/30/18 20:33; Admin Dose 500 MG; Start 09/28/18 at 21:00; Stop 10/28/18 at 20:59 Sucralfate (Carafate Susp) 1 gm QID GTB Last administered on 09/30/18 20:33; Admin Dose 1 GM; Start 09/28/18 at 13:00; Stop 10/12/18 at 12:59 Isosorbide Mononitrate (Imdur) 60 mg DAILY PO Last administered on 09/30/18 09:33; Admin Dose 60 MG; Start 09/28/18 at 15:00 Aspirin (Aspirin) 81 mg DAILY PO Last administered on 09/30/18at 09:33; Admin Dose 81 MG; Start 09/30/18 at 09:00 Zolpidem Tartrate (Ambien) 5 mg HS PRN PO INSOMNIA Last administered on 09/30/18at 23:02; Admin Dose 5 MG; Start 09/30/18 at 00:00 Epoetin Jero-epbx (Retacrit) 6,000 unit MoWeFr@1700 SC ; Start 10/01/18 at 17:00 LESLIE WESTON MD October 01, 2018 07:24
[2018-10-01] MEDS: INSULIN GLARGINE [LANTus] (100 UNITS/ML) SYG SC SCH (08:00)
[2018-10-01] MEDS: FERROUS FUMARATE (SR) TAB PO SCH ×2 (08:19→21:01)
[2018-10-01] MEDS: PENTOXIFYLLINE (SR) 400 MG TAB PO SCH (08:20)
[2018-10-01] MEDS: ISOSORBIDE MONONITRATE(SR)60 MG TAB PO SCH (08:20)
[2018-10-01] MEDS: ASCORBIC ACID 500 MG TAB PO SCH ×2 (08:20→21:01)
[2018-10-01] MEDS: MULTIVIT/CA CARB/B CMPLX/FA TAB PO SCH (08:20)
[2018-10-01] MEDS: FOLIC ACID 1 MG TAB PO SCH (08:20)
[2018-10-01] MEDS: ASPIRIN 81 MG TAB PO SCH (08:20)
[2018-10-01] MEDS: EZETIMIBE 10 MG TAB PO SCH (08:20)
[2018-10-01] MEDS: SUCRALFATE (100 MG/ML) 10ML CUP GTB SCH ×4 (08:21→21:01)
[2018-10-01] MEDS: SEVELAMER CARBONATE 0.8 GM PKT PO SCH ×3 (08:21→17:33)
--- NOTE | 2018-10-01 08:47 | CONS ---
Assessment/Plan Assessment/Plan Assessment/Plan (Daily) 1. acute Hyperkalemia due to GI bleeding 2.Acute fluid overload with Uremia BUN 111 on admission 3. acute GI bleeding causing acute blood loss anemia 4. Severe Anemia with Hb 5.8 on admission 5. H/O HTN 6. H/O peripherla vascular disease 7. ESRD on HD Plan: s/p 5 units PRBC trnasfusion during this admission , Hb 11 , BP stable, S/p Status post EGD/colonoscopy 09/27/19 -Anastomosis ulcer -Normal colonoscopy s/p HD yesterday 3 L removed, -[facility] HD on MWF s/p LHC on 09/30/18 that showed 3 V CAD- recommended CABG, s/p Evaluation by CT surgeon Lasix 40mg pO BID on discharge, stopped metabolzone since pt is already on HD will follow up Consultation Date/Type/Reason Admit Date/Time September 24, 2018 at 08:08 Initial Consult Date 09/24/18 Type of Consult NEPHROLOGY Requesting Provider: LAVON SEE Date/Time of Note DATE: 10/01/18 TIME: 08:47 24 HR Interval Summary Free Text/Dictation s/p LHC which showed 3 V CAD- recommended by, CABG, seen by CT surgery, BP sta ble, , plan for HD today Exam/Review of Systems Exam Vitals Vital Signs Date Temp Pulse Resp B/P (MAP) Pulse Ox O2 O2 Flow FiO2 Time Delivery Rate 10/01/18 97 19 124/70 92 Room Air 06:00 (88) 10/01/18 98.5 04:00 09/29/18 4.0 09:10 Intake and Output 09/30/18 09/30/18 10/01/18 1515:00 23:00 07:00 IntakeIntake Total 100 ml 35 ml OutputOutput Total 75 ml 50 ml BalanceBalance 25 ml -15 ml Constitutional: alert Psych: no complaints Head: normocephalic Eyes: nl conjunctiva Neck: supple, non-tender Respiratory: normal air movement, crackles/rales, diminished breath sounds Cardiovascular: regular rate and rhythm, nl pulses Gastrointestinal: soft, non-tender Musculoskeletal: nl extremities to inspection, swelling Extremities: normal pulses 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, other (non focal ) Results Result Diagram: 5/8/19 0448 10/01/18 0448 Results 24hrs Laboratory Tests Test 09/30/18 09:41 09/30/18 11:56 09/30/18 12:44 09/30/18 17:17 Bedside Glucose 123 128 117 Activated 33.4 Partial Thromboplas t Time Test 09/30/18 20:37 10/01/18 01:03 10/01/18 04:46 10/01/18 04:48 Bedside Glucose 164 127 120 White Blood Count 8.6 Red Blood Count 3.33 L Hemoglobin 9.7 L Hematocrit 30.4 L Mean Corpuscular 91.3 Volume Mean Corpuscular 29.1 Hemoglobin Mean Corpuscular 31.9 L Hemoglobin Concent Red Cell 16.5 H Distribution Width Platelet Count 269 Mean Platelet 10.8 H Volume Immature 0.400 Granulocytes % Neutrophils % 70.4 Lymphocytes % 11.0 L Monocytes % 10.7 Eosinophils % 6.4 Basophils % 1.1 Nucleated Red Blood 0.0 Cells % Immature 0.030 Granulocytes # Neutrophils # 6.0 Lymphocytes # 0.9 Monocytes # 0.9 Eosinophils # 0.6 H Basophils # 0.1 Nucleated Red Blood 0.0 Cells # Sodium Level 140 Potassium Level 3.8 Chloride Level 100 Carbon Dioxide 28 Level Anion Gap 12 Blood Urea Nitrogen 38 H Creatinine 8.71 H Est Glomerular 6 L Filtrat Rate mL/min Glucose Level 113 Calcium Level 8.3 L Test 10/01/18 04:50 10/01/18 08:22 Lab Scanned Report BLOOD TRANSFUSION Bedside Glucose 116 Medications Medication Current Medications EZETIMIBE (Zetia) 10 mg DAILY PO Last administered on 10/01/18 08:20; Admin Dose 10 MG; Start 09/25/18 at 09:00 Folic Acid (Folic Acid) 1 mg DAILY PO Last administered on 10/01/18 08:20; Admin Dose 1 MG; Start 09/25/18 at 09:00 Multivit/Ca Carb/ B Cmplx/FA/Prenat (Isabel-Brenda) 1 tab DAILY PO Last administered on 10/01/18 08:20; Admin Dose 1 TAB; Start 09/25/18 at 09:00 Sevelamer Carbonate (Renvela) 0.8 gm WITH MEALS PO Last administered on 10/01/18 08:21; Admin Dose 0.8 GM; Start 09/24/18 at 17:55 IV Flush (NS 3 ml) 3 ml PER PROTOCOL IV ; Start 09/24/18 at 12:30 Ondansetron HCl (Zofran Tab) 4 mg Q6H PRN PO NAUSEA/VOMITING Last administered on 09/27/18at 13:41; Admin Dose 4 MG; Start 09/24/18 at 12:30 Acetaminophen (Tylenol Tab) 650 mg Q6H PRN PO .PAIN 1-3 OR TEMP Last administered on 09/29/18at 19:43; Admin Dose 650 MG; Start 09/24/18 at 12:30 Diagnostic Test (Pha) (Accu-Chek) 1 ea 02 XX Last administered on 10/01/18at 02:04; Admin Dose 1 EA; Start 09/25/18 at 02:00 Insulin Glargine (Lantus) 31 units DAILY@0800 SC Last administered on 09/29/18at 08:36; Admin Dose 31 UNITS; Start 09/24/18 at 12:30 Insulin Aspart (Novolog Insulin Pen) NOVOLOG *MILD* ALGORI... Q4 SC Last administered on 09/30/18at 20:46; Admin Dose 1 UNIT; Start 09/24/18 at 13:00 Miscellaneous Information 1 ea NOTE XX ; Start 09/24/18 at 13:30 Glucose (Glutose) 15 gm Q15M PRN PO DECREASED GLUCOSE; Start 09/24/18 at 13:30 Glucose (Glutose) 22.5 gm Q15M PRN PO DECREASED GLUCOSE; Start 09/24/18 at 13:30 Dextrose (D50w Syringe) 25 ml Q15M PRN IV DECREASED GLUCOSE; Start 09/24/18 at 13:30 Dextrose (D50w Syringe) 50 ml Q15M PRN IV DECREASED GLUCOSE; Start 09/24/18 at 1 3:30 Glucagon (Glucagen) 1 mg Q15M PRN IM DECREASED GLUCOSE; Start 09/24/18 at 13:30 Glucose (Glutose) 15 gm Q15M PRN BUCCAL DECREASED GLUCOSE; Start 09/24/18 at 13:30 Albumin Human 100 ml @ 100 mls/hr WITH DIALYSIS PRN IV SBP <90 DURING DIALYSIS; Start 09/24/18 at 18:30 Sodium Chloride (NS) -To prime the dialy... DIRECTED FOR HD PRN IV HD; Start 09/24/18 at 18:30 Atorvastatin Calcium (Lipitor) 40 mg HS PO Last administered on 09/30/18 20:33; Admin Dose 40 MG; Start 09/25/18 at 21:00 Pentoxifylline (Trental) 400 mg DAILY PO Last administered on 10/01/18 08:20; Admin Dose 400 MG; Start 09/27/18 at 09:00 Docusate Sodium/ Ferrous Fumarate (Les-Sequels) 1 tab BID PO Last administered on 10/01/18 08:19; Admin Dose 1 TAB; Start 09/27/18 at 21:00; Stop 10/27/18 at 20:59 Furosemide (Lasix) 40 mg BID DIURETICS PO Last administered on 10/01/18 05:56; Admin Dose 40 MG; Start 09/26/18 at 18:00 Acetaminophen/ Hydrocodone Bitart ([place] (5/325)) 1 tab Q4H PRN PO PAIN LEVEL 1-5; Start 09/27/18 at 03:00 Acetaminophen/ Hydrocodone Bitart ([place] (5/325)) 2 tab Q4H PRN PO PAIN LEVEL 6-10 Last administered on 09/30/18 19:25; Admin Dose 2 TAB; Start 09/27/18 at 03:00 Pantoprazole (Protonix Iv) 40 mg BID@06,18 IV Last administered on 10/01/18 05:55; Admin Dose 40 MG; Start 09/27/18 at 18:00 Nitroglycerin (Nitroglycerin (Sl Tab) 0.4 Mg) 1 tab Q5M PRN SL ANGINA Last administered on 09/28/18 06:05; Admin Dose 1 TAB; Start 09/28/18 at 03:30 Ipratropium [place] (Atrovent Hfa) 2 puff QID RESP THERAPY PRN INH SHORTNESS OF BREATH; Start 09/28/18 at 04:00 Levalbuterol (Xopenex Neb) 1.25 mg Q4H RESP THERAPY PRN HHN SHORTNESS OF BREATH; Start 09/28/18 at 04:00 Ascorbic Acid (Vitamin C) 500 mg BID PO Last administered on 10/01/18 08:20; Admin Dose 500 MG; Start 09/28/18 at 21:00; Stop 10/28/18 at 20:59 Sucralfate (Carafate Susp) 1 gm QID GTB Last administered on 10/01/18 08:21; Admin Dose 1 GM; Start 09/28/18 at 13:00; Stop 10/12/18 at 12:59 Isosorbide Mononitrate (Imdur) 60 mg DAILY PO Last administered on 10/01/18 08:20; Admin Dose 60 MG; Start 09/28/18 at 15:00 Aspirin (Aspirin) 81 mg DAILY PO Last administered on 10/01/18at 08:20; Admin Dose 81 MG; Start 09/30/18 at 09:00 Zolpidem Tartrate (Ambien) 5 mg HS PRN PO INSOMNIA Last administered on 09/30/18at 23:02; Admin Dose 5 MG; Start 09/30/18 at 00:00 Epoetin Jero-epbx (Retacrit) 6,000 unit MoWeFr@1700 SC ; Start 10/01/18 at 17:00 RAQUEL MCDOWELL MD October 01, 2018 08:47
--- NOTE | 2018-10-01 09:52 | PN ---
Date/Time of Note Date/Time of Note DATE: 10/01/18 TIME: 09:43 Assessment/Plan VTE Prophylaxis [place] [facility] [place] risk: 8 [place]CD applied [place] [facility] [place] Yes Pharmacological prophylaxis: NA/contraindicated Pharm contraindication: bleeding, other (GIB) Lines/Catheters [facility] Saline Lock Urinary Cath still in place: No Assessment/Plan Hospital Course SUBJECTIVE: s/p HC 09/30/18. no further gi bleed. In ICU OBJECTIVE: Vital signs-see below PHYSICAL EXAM: Constitutional: Adequately built,not in acute distress. HEENT: Head atraumatic and normocephalic. Eyes: Extraocular muscles intact. Anicteric sclerae. Pupils equal bilaterally, reactive to light. NECK: Supple without lymph node. CHEST: Slight wheezing on right upper lobe. HEART: S1, S2. Regular rate and rhythm. ABDOMEN: Soft/non tender with no rebound tenderness. Bowel sounds were present. EXTREMITIES:BLE 2+edema (improved) w/no palpable DP pulses. 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 NEUROLOGIC: Alert and oriented x3. No focal deficit. No sensory deficit. PSYCHOSOCIAL: No signs of depression. INTEGUMENTARY: left foot 3rd toe chronic dry gangrene. ASSESSMENT AND PLAN:67 yo with numerous comorbidities including dyslipide moo,dmII,ESRD/HD and severe PVD who is also anticoagulated on Eliquis/Plavix,here with worsening malaise, found to have severe anemia/positive stool OB... also had NSTEMI NSTEMI/Multivessel coronary artery disease s/p [facility] 09/30 -Recommended CABG -Cont antiplatelet/statin-Not a candidate for BB 2/2 HB -f/u cards/cv recs. Severe acute symptomatic blood loss anemia -Improved with multiple transfusion. -Continue iron replacement Upper GI bleed -s/p EGD showed anastomotic ulcer (hx billroth II) -On PPI/Carafate Mobitz type I heart block -Stable -Avoid BB/AV jesus agents. 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 -on Trental for pain -Wound care Obesity with BMI 36.3 -Weight reduction advised. Anemia of ESRD -Consider Epogen with hemodialysis. DVT prophylaxis: SCDs PUD prophylaxis: Protonix Disposition: patient is recommended to have CABG. f/u cards/CV recs on timing/scheduling in light of GIB..Downgrade to tele if okay from cards standpoint. Patient was seen in collaboration with Dr. Beltran. Result Diagram: 10/01/18 0448 10/01/18447 Results 24hrs Laboratory Tests Test 09/30/18 11:56 09/30/18 12:44 09/30/18 17:17 09/30/18 20:37 Bedside Glucose 128 117 164 Activated 33.4 Partial Thromboplas t Time Test 10/01/18 01:03 10/01/18 04:46 10/01/18 04:48 10/01/18 04:50 Bedside Glucose 127 120 White Blood Count 8.6 Red Blood Count 3.33 L Hemoglobin 9.7 L Hematocrit 30.4 L Mean Corpuscular 91.3 Volume Mean Corpuscular 29.1 Hemoglobin Mean Corpuscular 31.9 L Hemoglobin Concent Red Cell 16.5 H Distribution Width Platelet Count 269 Mean Platelet 10.8 H Volume Immature 0.400 Granulocytes % Neutrophils % 70.4 Lymphocytes % 11.0 L Monocytes % 10.7 Eosinophils % 6.4 Basophils % 1.1 Nucleated Red Blood 0.0 Cells % Immature 0.030 Granulocytes # Neutrophils # 6.0 Lymphocytes # 0.9 Monocytes # 0.9 Eosinophils # 0.6 H Basophils # 0.1 Nucleated Red Blood 0.0 Cells # Sodium Level 140 Potassium Level 3.8 Chloride Level 100 Carbon Dioxide 28 Level Anion Gap 12 Blood Urea Nitrogen 38 H Creatinine 8.71 H Est Glomerular 6 L Filtrat Rate mL/min Glucose Level 113 Calcium Level 8.3 L Lab Scanned Report BLOOD TRANSFUSION Test 10/01/18 08:22 Bedside Glucose 116 Exam/Review of Systems Exam Vitals Vital Signs Date Temp Pulse Resp B/P (MAP) Pulse Ox O2 O2 Flow FiO2 Time Delivery Rate 10/01/18 87 140/50 95 Room Air 09:00 (80) 10/01/18 99.0 19 08:00 09/29/18 4.0 09:10 Intake and Output 09/30/18 09/30/18 10/01/18 1515:00 23:00 07:00 IntakeIntake Total 100 ml 35 ml OutputOutput Total 75 ml 50 ml BalanceBalance 25 ml -15 ml Results Results 24hrs Laboratory Tests Test 09/30/18 11:56 09/30/18 12:44 09/30/18 17:17 09/30/18 20:37 Bedside Glucose 128 117 164 Activated 33.4 Partial Thromboplas t Time Test 10/01/18 01:03 10/01/18 04:46 10/01/18 04:48 10/01/18 04:50 Bedside Glucose 127 120 White Blood Count 8.6 Red Blood Count 3.33 L Hemoglobin 9.7 L Hematocrit 30.4 L Mean Corpuscular 91.3 Volume Mean Corpuscular 29.1 Hemoglobin Mean Corpuscular 31.9 L Hemoglobin Concent Red Cell 16.5 H Distribution Width Platelet Count 269 Mean Platelet 10.8 H Volume Immature 0.400 Granulocytes % Neutrophils % 70.4 Lymphocytes % 11.0 L Monocytes % 10.7 Eosinophils % 6.4 Basophils % 1.1 Nucleated Red Blood 0.0 Cells % Immature 0.030 Granulocytes # Neutrophils # 6.0 Lymphocytes # 0.9 Monocytes # 0.9 Eosinophils # 0.6 H Basophils # 0.1 Nucleated Red Blood 0.0 Cells # Sodium Level 140 Potassium Level 3.8 Chloride Level 100 Carbon Dioxide 28 Level Anion Gap 12 Blood Urea Nitrogen 38 H Creatinine 8.71 H Est Glomerular 6 L Filtrat Rate mL/min Glucose Level 113 Calcium Level 8.3 L Lab Scanned Report BLOOD TRANSFUSION Test 10/01/18 08:22 Bedside Glucose 116 Medications Medication Current Medications EZETIMIBE (Zetia) 10 mg DAILY PO Last administered on 10/01/18 08:20; Admin Dose 10 MG; Start 09/25/18 at 09:00 Folic Acid (Folic Acid) 1 mg DAILY PO Last administered on 10/01/18 08:20; Admin Dose 1 MG; Start 09/25/18 at 09:00 Multivit/Ca Carb/ B Cmplx/FA/Prenat (Isabel-Brenda) 1 tab DAILY PO Last administered on 10/01/18 08:20; Admin Dose 1 TAB; Start 09/25/18 at 09:00 Sevelamer Carbonate (Renvela) 0.8 gm WITH MEALS PO Last administered on 10/01/18 08:21; Admin Dose 0.8 GM; Start 09/24/18 at 17:55 IV Flush (NS 3 ml) 3 ml PER PROTOCOL IV ; Start 09/24/18 at 12:30 Ondansetron HCl (Zofran Tab) 4 mg Q6H PRN PO NAUSEA/VOMITING Last administered on 09/27/18 13:41; Admin Dose 4 MG; Start 09/24/18 at 12:30 Acetaminophen (Tylenol Tab) 650 mg Q6H PRN PO .PAIN 1-3 OR TEMP Last administered on 09/29/18 19:43; Admin Dose 650 MG; Start 09/24/18 at 12:30 Diagnostic Test (Pha) (Accu-Chek) 1 ea 02 XX Last administered on 10/01/18 02:04; Admin Dose 1 EA; Start 09/25/18 at 02:00 Insulin Glargine (Lantus) 31 units DAILY@0800 SC Last administered on 09/29/18 08:36; Admin Dose 31 UNITS; Start 09/24/18 at 12:30 Insulin Aspart (Novolog Insulin Pen) NOVOLOG *MILD* ALGORI... Q4 SC Last administered on 09/30/18 20:46; Admin Dose 1 UNIT; Start 09/24/18 at 13:00 Miscellaneous Information 1 ea NOTE XX ; Start 09/24/18 at 13:30 Glucose (Glutose) 15 gm Q15M PRN PO DECREASED GLUCOSE; Start 09/24/18 at 13:30 Glucose (Glutose) 22.5 gm Q15M PRN PO DECREASED GLUCOSE; Start 09/24/18 at 13:30 Dextrose (D50w Syringe) 25 ml Q15M PRN IV DECREASED GLUCOSE; Start 09/24/18 at 13:30 Dextrose (D50w Syringe) 50 ml Q15M PRN IV DECREASED GLUCOSE; Start 09/24/18 at 13:30 Glucagon (Glucagen) 1 mg Q15M PRN IM DECREASED GLUCOSE; Start 09/24/18 at 13:30 Glucose (Glutose) 15 gm Q15M PRN BUCCAL DECREASED GLUCOSE; Start 09/24/18 at 13:30 Albumin Human 100 ml @ 100 mls/hr WITH DIALYSIS PRN IV SBP <90 DURING DIALYSIS; Start 09/24/18 at 18:30 Sodium Chloride (NS) -To prime the dialy... DIRECTED FOR HD PRN IV HD; Start 09/24/18 at 18:30 Atorvastatin Calcium (Lipitor) 40 mg HS PO Last administered on 09/30/18at 20:33; Admin Dose 40 MG; Start 09/25/18 at 21:00 Pentoxifylline (Trental) 400 mg DAILY PO Last administered on 10/01/18 08:20; A dmin Dose 400 MG; Start 09/27/18 at 09:00 Docusate Sodium/ Ferrous Fumarate (Les-Sequels) 1 tab BID PO Last administered on 10/01/18 08:19; Admin Dose 1 TAB; Start 09/27/18 at 21:00; Stop 10/27/18 at 20:59 Furosemide (Lasix) 40 mg BID DIURETICS PO Last administered on 10/01/18at 05:56; Admin Dose 40 MG; Start 09/26/18 at 18:00 Acetaminophen/ Hydrocodone Bitart ([place] (5/325)) 1 tab Q4H PRN PO PAIN LEVEL 1-5; Start 09/27/18 at 03:00 Acetaminophen/ Hydrocodone Bitart ([place] (5/325)) 2 tab Q4H PRN PO PAIN LEVEL 6-10 Last administered on 09/30/18 19:25; Admin Dose 2 TAB; Start 09/27/18 at 03:00 Pantoprazole (Protonix Iv) 40 mg BID@06,18 IV Last administered on 10/01/18 05:55; Admin Dose 40 MG; Start 09/27/18 at 18:00 Nitroglycerin (Nitroglycerin (Sl Tab) 0.4 Mg) 1 tab Q5M PRN SL ANGINA Last ad ministered on 09/28/18at 06:05; Admin Dose 1 TAB; Start 09/28/18 at 03:30 Ipratropium Organ (Atrovent Hfa) 2 puff QID RESP THERAPY PRN INH SHORTNESS OF BREATH; Start 09/28/18 at 04:00 Levalbuterol (Xopenex Neb) 1.25 mg Q4H RESP THERAPY PRN HHN SHORTNESS OF BREATH; Start 09/28/18 at 04:00 Ascorbic Acid (Vitamin C) 500 mg BID PO Last administered on 10/01/18 08:20; Admin Dose 500 MG; Start 09/28/18 at 21:00; Stop 10/28/18 at 20:59 Sucralfate (Carafate Susp) 1 gm QID GTB Last administered on 10/01/18 08:21; Admin Dose 1 GM; Start 09/28/18 at 13:00; Stop 10/12/18 at 12:59 Isosorbide Mononitrate (Imdur) 60 mg DAILY PO Last administered on 10/01/18 08:20; Admin Dose 60 MG; Start 09/28/18 at 15:00 Aspirin (Aspirin) 81 mg DAILY PO Last administered on 10/01/18at 08:20; Admin Dose 81 MG; Start 09/30/18 at 09:00 Zolpidem Tartrate (Ambien) 5 mg HS PRN PO INSOMNIA Last administered on 09/30/18at 23:02; Admin Dose 5 MG; Start 09/30/18 at 00:00 Epoetin Jero-epbx (Retacrit) 6,000 unit MoWeFr@1700 SC ; Start 10/01/18 at 17:00 DENZEL MICHAELS NP October 01, 2018 09:52
--- NOTE | 2018-10-01 12:34 | PN ---
Date/Time of Note Date/Time of Note DATE: 10/01/18 TIME: 12:29 Assessment/Plan VTE Prophylaxis Risk score (from [facility])>0 risk: 8 SCD applied (from [facility]): Yes Pharmacological prophylaxis: other (scds) Lines/Catheters IV [facility] Type (from [facility] Saline Lock Urinary Cath still in place: No Assessment/Plan Hospital Course Assessment/Plan Assessment: Severe acute on chronic anemia Status post EGD 09/26/2018 -Anastomosis ulcer Status post Colonoscopy 09/26/18 Scattered diverticula No red blood noted no active bleeding, Black particulate matter- likely melanotic Rectal polyp removed Biopsy shows rectal polyp is compatible with diminutive inflammatory polyp no adenoma is identified Melena- resolved ESRD on HD DM Bilateral lower extremity atherosclerosis with left lower extremity third toe ulcer Hx of colonoscopy 05/12- suboptimal prep- no gross lesions- rec to f/u 6 months to 1 year NSTEMI S/p [facility] 09/30 -Diffuse multivessel CAD -Best suitable for CABG Plan: Continue Protonix BID Continue to monitor for overt signs of GI bleed Patient seen in collaboration with Dr. Cardoza Subjective: Pt resting in bed, currently receiving HD, no c/o n/v or abd pain Pt was seen by CT surgery this am. Poss CABG in near future. PHYSICAL EXAMINATION: GENERAL: Alert & oriented x 3, in no acute distress SKIN: No lesions EYES: Pupils equal reactive to light, no discharge. EARS/NOSE AND THROAT: Ears normal, nose normal. NECK: Supple, no masses CARDIOVASCULAR: Heart: Regular rate and rhythm, RESPIRATORY: Lungs clear to auscultation GASTROINTESTINAL AND LIVER: Abdomen: Soft, non tenderness, normoactive bowel sounds. Rectal: Deferred. GENITOURINARY: [Male genitalia within normal limits. EXTREMITIES: No cyanosis, clubbing or edema. Result Diagram: 10/01/18 0448 10/01/18 0448 Results 24hrs Laboratory Tests Test 09/30/18 12:44 09/30/18 17:17 09/30/18 20:37 10/01/18 01:03 Activated 33.4 Partial Thromboplas t Time Bedside Glucose 117 164 127 Test 10/01/18 04:46 10/01/18 04:48 10/01/18 04:50 10/01/18 08:22 Bedside Glucose 120 116 White Blood Count 8.6 Red Blood Count 3.33 L Hemoglobin 9.7 L Hematocrit 30.4 L Mean Corpuscular 91.3 Volume Mean Corpuscular 29.1 Hemoglobin Mean Corpuscular 31.9 L Hemoglobin Concent Red Cell 16.5 H Distribution Width Platelet Count 269 Mean Platelet 10.8 H Volume Immature 0.400 Granulocytes % Neutrophils % 70.4 Lymphocytes % 11.0 L Monocytes % 10.7 Eosinophils % 6.4 Basophils % 1.1 Nucleated Red Blood 0.0 Cells % Immature 0.030 Granulocytes # Neutrophils # 6.0 Lymphocytes # 0.9 Monocytes # 0.9 Eosinophils # 0.6 H Basophils # 0.1 Nucleated Red Blood 0.0 Cells # Sodium Level 140 Potassium Level 3.8 Chloride Level 100 Carbon Dioxide 28 Level Anion Gap 12 Blood Urea Nitrogen 38 H Creatinine 8.71 H Est Glomerular 6 L Filtrat Rate mL/min Glucose Level 113 Calcium Level 8.3 L Lab Scanned Report BLOOD TRANSFUSION Exam/Review of Systems Exam Vitals Vital Signs Date Temp Pulse Resp B/P (MAP) Pulse Ox O2 O2 Flow FiO2 Time Delivery Rate 10/01/18 82 12:15 10/01/18 18 122/67 97 12:00 (85) 10/01/18 Room Air 11:00 10/01/18 99.0 08:00 09/29/18 4.0 09:10 Intake and Output 09/30/18 09/30/18 10/01/18 1515:00 23:00 07:00 IntakeIntake Total 100 ml 35 ml OutputOutput Total 75 ml 50 ml BalanceBalance 25 ml -15 ml Results Results 24hrs Laboratory Tests Test 09/30/18 12:44 09/30/18 17:17 09/30/18 20:37 10/01/18 01:03 Activated 33.4 Partial Thromboplas t Time Bedside Glucose 117 164 127 Test 10/01/18 04:46 10/01/18 04:48 10/01/18 04:50 10/01/18 08:22 Bedside Glucose 120 116 White Blood Count 8.6 Red Blood Count 3.33 L Hemoglobin 9.7 L Hematocrit 30.4 L Mean Corpuscular 91.3 Volume Mean Corpuscular 29.1 Hemoglobin Mean Corpuscular 31.9 L Hemoglobin Concent Red Cell 16.5 H Distribution Width Platelet Count 269 Mean Platelet 10.8 H Volume Immature 0.400 Granulocytes % Neutrophils % 70.4 Lymphocytes % 11.0 L Monocytes % 10.7 Eosinophils % 6.4 Basophils % 1.1 Nucleated Red Blood 0.0 Cells % Immature 0.030 Granulocytes # Neutrophils # 6.0 Lymphocytes # 0.9 Monocytes # 0.9 Eosinophils # 0.6 H Basophils # 0.1 Nucleated Red Blood 0.0 Cells # Sodium Level 140 Potassium Level 3.8 Chloride Level 100 Carbon Dioxide 28 Level Anion Gap 12 Blood Urea Nitrogen 38 H Creatinine 8.71 H Est Glomerular 6 L Filtrat Rate mL/min Glucose Level 113 Calcium Level 8.3 L Lab Scanned Report BLOOD TRANSFUSION Medications Medication Current Medications EZETIMIBE (Zetia) 10 mg DAILY PO Last administered on 10/01/18 08:20; Admin Dose 10 MG; Start 09/25/18 at 09:00 Folic Acid (Folic Acid) 1 mg DAILY PO Last administered on 10/01/18 08:20; Admin Dose 1 MG; Start 09/25/18 at 09:00 Multivit/Ca Carb/ B Cmplx/FA/Prenat (Isabel-Brenda) 1 tab DAILY PO Last administered on 10/01/18 08:20; Admin Dose 1 TAB; Start 09/25/18 at 09:00 Sevelamer Carbonate (Renvela) 0.8 gm WITH MEALS PO Last administered on 10/01/18 08:21; Admin Dose 0.8 GM; Start 09/24/18 at 17:55 IV Flush (NS 3 ml) 3 ml PER PROTOCOL IV ; Start 09/24/18 at 12:30 Ondansetron HCl (Zofran Tab) 4 mg Q6H PRN PO NAUSEA/VOMITING Last administered on 09/27/18 13:41; Admin Dose 4 MG; Start 09/24/18 at 12:30 Acetaminophen (Tylenol Tab) 650 mg Q6H PRN PO .PAIN 1-3 OR TEMP Last administered on 09/29/18 19:43; Admin Dose 650 MG; Start 09/24/18 at 12:30 Diagnostic Test (Pha) (Accu-Chek) 1 ea 02 XX Last administered on 10/01/18 02:04; Admin Dose 1 EA; Start 09/25/18 at 02:00 Insulin Glargine (Lantus) 31 units DAILY@0800 SC Last administered on 5/6/19at 08:36; Admin Dose 31 UNITS; Start 09/24/18 at 12:30 Insulin Aspart (Novolog Insulin Pen) NOVOLOG *MILD* ALGORI... Q4 SC Last administered on 09/30/18at 20:46; Admin Dose 1 UNIT; Start 09/24/18 at 13:00 Miscellaneous Information 1 ea NOTE XX ; Start 09/24/18 at 13:30 Glucose (Glutose) 15 gm Q15M PRN PO DECREASED GLUCOSE; Start 09/24/18 at 13:30 Glucose (Glutose) 22.5 gm Q15M PRN PO DECREASED GLUCOSE; Start 09/24/18 at 13:30 Dextrose (D50w Syringe) 25 ml Q15M PRN IV DECREASED GLUCOSE; Start 09/24/18 at 13:30 Dextrose (D50w Syringe) 50 ml Q15M PRN IV DECREASED GLUCOSE; Start 09/24/18 at 13:30 Glucagon (Glucagen) 1 mg Q15M PRN IM DECREASED GLUCOSE; Start 09/24/18 at 13:30 Glucose (Glutose) 15 gm Q15M PRN BUCCAL DECREASED GLUCOSE; Start 09/24/18 at 13:30 Albumin Human 100 ml @ 100 mls/hr WITH DIALYSIS PRN IV SBP <90 DURING DIALYSIS; Start 09/24/18 at 18:30 Sodium Chloride (NS) -To prime the dialy... DIRECTED FOR HD PRN IV HD; Start 09/24/18 at 18:30 Atorvastatin Calcium (Lipitor) 40 mg HS PO Last administered on 09/30/18at 20:33; Admin Dose 40 MG; Start 09/25/18 at 21:00 Pentoxifylline (Trental) 400 mg DAILY PO Last administered on 10/01/18at 08:20; Admin Dose 400 MG; Start 09/27/18 at 09:00 Docusate Sodium/ Ferrous Fumarate (Les-Sequels) 1 tab BID PO Last administered on 10/01/18 08:19; Admin Dose 1 TAB; Start 09/27/18 at 21:00; Stop 10/27/18 at 20:59 Furosemide (Lasix) 40 mg BID DIURETICS PO Last administered on 10/01/18at 05:56; Admin Dose 40 MG; Start 09/26/18 at 18:00 Acetaminophen/ Hydrocodone Bitart ([place] (5/325)) 1 tab Q4H PRN PO PAIN LEVEL 1-5; Start 09/27/18 at 03:00 Acetaminophen/ Hydrocodone Bitart ([place] (5/325)) 2 tab Q4H PRN PO PAIN LEVEL 6-10 Last administered on 09/30/18 19:25; Admin Dose 2 TAB; Start 09/27/18 at 03:00 Pantoprazole (Protonix Iv) 40 mg BID@06,18 IV Last administered on 10/01/18 05:55; Admin Dose 40 MG; Start 09/27/18 at 18:00 Nitroglycerin (Nitroglycerin (Sl Tab) 0.4 Mg) 1 tab Q5M PRN SL ANGINA Last administered on 09/28/18 06:05; Admin Dose 1 TAB; Start 09/28/18 at 03:30 Ipratropium [place] (Atrovent Hfa) 2 puff QID RESP THERAPY PRN INH SHORTNESS OF BREATH; Start 09/28/18 at 04:00 Levalbuterol (Xopenex Neb) 1.25 mg Q4H RESP THERAPY PRN HHN SHORTNESS OF BREATH; Start 09/28/18 at 04:00 Ascorbic Acid (Vitamin C) 500 mg BID PO Last administered on 10/01/18 08:20; Admin Dose 500 MG; Start 09/28/18 at 21:00; Stop 10/28/18 at 20:59 Sucralfate (Carafate Susp) 1 gm QID GTB Last administered on 10/01/18 08:21; Admin Dose 1 GM; Start 09/28/18 at 13:00; Stop 10/12/18 at 12:59 Isosorbide Mononitrate (Imdur) 60 mg DAILY PO Last administered on 10/01/18 08:20; Admin Dose 60 MG; Start 09/28/18 at 15:00 Aspirin (Aspirin) 81 mg DAILY PO Last administered on 10/01/18 08:20; Admin Dose 81 MG; Start 09/30/18 at 09:00 Zolpidem Tartrate (Ambien) 5 mg HS PRN PO INSOMNIA Last administered on 09/30/18 23:02; Admin Dose 5 MG; Start 09/30/18 at 00:00 Epoetin Jero-epbx (Retacrit) 6,000 unit MoWeFr@4665 [place] ; Start 10/01/18 at 17:00 HERRERA WORRELL October 01, 2018 12:34
--- NOTE | 2018-10-01 12:41 | CONS ---
Assessment/Plan Assessment/Plan Hospital Course (Demo Recall) NSTEMI: chest pain 09/28 3 am and none since. Trop peak 1.1 and trended down. S/p cath 09/30/18 with diffuse multivessel CAD best suitable for CABG for this diabetic pt. Seen by cardiac surgery. Plan is to wait a few days to let the ulcer heal before surgery Upper GI bleed: due to anastomotic ulcer seen on EGD 09/26. No bleeding since even on heparin drip Anemia: due to above. s/p 5 units PRBCs. Stable Wenckebach: [place] 1. Not on BB. No pauses or high grade block. 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 Now stopped DM ESRD on HD MWF HTN H/o [place]th -ok for transfer to tele -CABG pending -ASA 81mg daily -continue imdur 60mg -lipitor 40mg -lasix 40mg PO BID -HD per nephrology Consultation Date/Type/Reason Admit Date/Time September 24, 2018 at 08:08 Initial Consult Date 09/24/18 Type of Consult Cardiology Requesting Provider: LAVON SEE Date/Time of Note DATE: 10/01/18 TIME: 12:38 24 HR Interval Summary Free Text/Dictation Seen by Dr. Maciel. Plan for CABG. No chest pain or SOB. at bedside. Exam/Review of Systems Vital Signs Vitals Vital Signs Date Temp Pulse Resp B/P (MAP) Pulse Ox O2 O2 Flow FiO2 Time Delivery Rate 10/01/18 88 12:30 10/01/18 18 122/67 97 12:00 (85) 10/01/18 Room Air 11:00 10/01/18 99.0 08:00 09/29/18 4.0 09:10 Intake and Output 09/30/18 09/30/18 10/01/18 1515:00 23:00 07:00 IntakeIntake Total 100 ml 35 ml OutputOutput Total 75 ml 50 ml BalanceBalance 25 ml -15 ml Exam Constitutional: alert, oriented Psych: no complaints, nl mood/affect Neck: supple; No jvd Respiratory: diminished breath sounds; No clear to auscultation Cardiovascular: regular rate and rhythm, systolic murmur (2/6 GREGORY); No edema Gastrointestinal: soft, non-tender; No distended Extremities: other (right groin no bleeding/hematoma ) 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: nl mental status, nl speech Labs Result Diagram: 10/01/18 0448 10/01/18 0448 Results 24hrs Laboratory Tests Test 09/30/18 12:44 09/30/18 17:17 09/30/18 20:37 10/01/18 01:03 Activated 33.4 Partial Thromboplas t Time Bedside Glucose 117 164 127 Test 10/01/18 04:46 10/01/18 04:48 10/01/18 04:50 10/01/18 08:22 Bedside Glucose 120 116 White Blood Count 8.6 Red Blood Count 3.33 L Hemoglobin 9.7 L Hematocrit 30.4 L Mean Corpuscular 91.3 Volume Mean Corpuscular 29.1 Hemoglobin Mean Corpuscular 31.9 L Hemoglobin Concent Red Cell 16.5 H Distribution Width Platelet Count 269 Mean Platelet 10.8 H Volume Immature 0.400 Granulocytes % Neutrophils % 70.4 Lymphocytes % 11.0 L Monocytes % 10.7 Eosinophils % 6.4 Basophils % 1.1 Nucleated Red Blood 0.0 Cells % Immature 0.030 Granulocytes # Neutrophils # 6.0 Lymphocytes # 0.9 Monocytes # 0.9 Eosinophils # 0.6 H Basophils # 0.1 Nucleated Red Blood 0.0 Cells # Sodium Level 140 Potassium Level 3.8 Chloride Level 100 Carbon Dioxide 28 Level Anion Gap 12 Blood Urea Nitrogen 38 H Creatinine 8.71 H Est Glomerular 6 L Filtrat Rate mL/min Glucose Level 113 Calcium Level 8.3 L Lab Scanned Report BLOOD TRANSFUSION Test 10/01/18 12:09 Bedside Glucose 112 Medications Medications Current Medications EZETIMIBE (Zetia) 10 mg DAILY PO Last administered on 10/01/18 08:20; Admin Dose 10 MG; Start 09/25/18 at 09:00 Folic Acid (Folic Acid) 1 mg DAILY PO Last administered on 10/01/18 08:20; Admin Dose 1 MG; Start 09/25/18 at 09:00 Multivit/Ca Carb/ B Cmplx/FA/Prenat (Isabel-Brenda) 1 tab DAILY PO Last administered on 10/01/18 08:20; Admin Dose 1 TAB; Start 09/25/18 at 09:00 Sevelamer Carbonate (Renvela) 0.8 gm WITH MEALS PO Last administered on 10/01/18 08:21; Admin Dose 0.8 GM; Start 09/24/18 at 17:55 IV Flush (NS 3 ml) 3 ml PER PROTOCOL IV ; Start 09/24/18 at 12:30 Ondansetron HCl (Zofran Tab) 4 mg Q6H PRN PO NAUSEA/VOMITING Last administered on 09/27/18 13:41; Admin Dose 4 MG; Start 09/24/18 at 12:30 Acetaminophen (Tylenol Tab) 650 mg Q6H PRN PO .PAIN 1-3 OR TEMP Last administered on 09/29/18 19:43; Admin Dose 650 MG; Start 09/24/18 at 12:30 Diagnostic Test (Pha) (Accu-Chek) 1 ea 02 XX Last administered on 10/01/18 02:04; Admin Dose 1 EA; Start 09/25/18 at 02:00 Insulin Glargine (Lantus) 31 units DAILY@0800 SC Last administered on 09/29/18 08:36; Admin Dose 31 UNITS; Start 09/24/18 at 12:30 Insulin Aspart (Novolog Insulin Pen) NOVOLOG *MILD* ALGORI... Q4 SC Last administered on 09/30/18 20:46; Admin Dose 1 UNIT; Start 09/24/18 at 13:00 Miscellaneous Information 1 ea NOTE XX ; Start 09/24/18 at 13:30 Glucose (Glutose) 15 gm Q15M PRN PO DECREASED GLUCOSE; Start 09/24/18 at 13:30 Glucose (Glutose) 22.5 gm Q15M PRN PO DECREASED GLUCOSE; Start 09/24/18 at 13:30 Dextrose (D50w Syringe) 25 ml Q15M PRN IV DECREASED GLUCOSE; Start 09/24/18 at 13:30 Dextrose (D50w Syringe) 50 ml Q15M PRN IV DECREASED GLUCOSE; Start 09/24/18 at 13:30 Glucagon (Glucagen) 1 mg Q15M PRN IM DECREASED GLUCOSE; Start 09/24/18 at 13:30 Glucose (Glutose) 15 gm Q15M PRN BUCCAL DECREASED GLUCOSE; Start 09/24/18 at 13:30 Albumin Human 100 ml @ 100 mls/hr WITH DIALYSIS PRN IV SBP <90 DURING DIALYSIS; Start 09/24/18 at 18:30 Sodium Chloride (NS) -To prime the dialy... DIRECTED FOR HD PRN IV HD; Start 09/24/18 at 18:30 Atorvastatin Calcium (Lipitor) 40 mg HS PO Last administered on 09/30/18 20:33; Admin Dose 40 MG; Start 09/25/18 at 21:00 Pentoxifylline (Trental) 400 mg DAILY PO Last administered on 10/01/18 08:20; Admin Dose 400 MG; Start 09/27/18 at 09:00 Docusate Sodium/ Ferrous Fumarate (Les-Sequels) 1 tab BID PO Last administered on 10/01/18 08:19; Admin Dose 1 TAB; Start 09/27/18 at 21:00; Stop 10/27/18 at 20:59 Furosemide (Lasix) 40 mg BID DIURETICS PO Last administered on 10/01/18 05:56; Admin Dose 40 MG; Start 09/26/18 at 18:00 Acetaminophen/ Hydrocodone Bitart ([place] (5/325)) 1 tab Q4H PRN PO PAIN LEVEL 1-5; Start 09/27/18 at 03:00 Acetaminophen/ Hydrocodone Bitart ([place] (5/325)) 2 tab Q4H PRN PO PAIN LEVEL 6-10 Last administered on 09/30/18 19:25; Admin Dose 2 TAB; Start 09/27/18 at 03:00 Pantoprazole (Protonix Iv) 40 mg BID@06,18 IV Last administered on 10/01/18 05:55; Admin Dose 40 MG; Start 09/27/18 at 18:00 Nitroglycerin (Nitroglycerin (Sl Tab) 0.4 Mg) 1 tab Q5M PRN SL ANGINA Last a dministered on 09/28/18 06:05; Admin Dose 1 TAB; Start 09/28/18 at 03:30 Ipratropium [place] (Atrovent Hfa) 2 puff QID RESP THERAPY PRN INH SHORTNESS OF BREATH; Start 09/28/18 at 04:00 Levalbuterol (Xopenex Neb) 1.25 mg Q4H RESP THERAPY PRN HHN SHORTNESS OF BREATH; Start 09/28/18 at 04:00 Ascorbic Acid (Vitamin C) 500 mg BID PO Last administered on 10/01/18 08:20; Admin Dose 500 MG; Start 09/28/18 at 21:00; Stop 10/28/18 at 20:59 Sucralfate (Carafate Susp) 1 gm QID GTB Last administered on 10/01/18at 08:21; Admin Dose 1 GM; Start 09/28/18 at 13:00; Stop 10/12/18 at 12:59 Isosorbide Mononitrate (Imdur) 60 mg DAILY PO Last administered on 10/01/18 08:20; Admin Dose 60 MG; Start 09/28/18 at 15:00 Aspirin (Aspirin) 81 mg DAILY PO Last administered on 10/01/18at 08:20; Admin Dose 81 MG; Start 09/30/18 at 09:00 Zolpidem Tartrate (Ambien) 5 mg HS PRN PO INSOMNIA Last administered on 09/30/18at 23:02; Admin Dose 5 MG; Start 09/30/18 at 00:00 Epoetin Jero-epbx (Retacrit) 6,000 unit MoWeFr@1700 SC ; Start 10/01/18 at 17:00 LAVON SEE October 01, 2018 12:41
[2018-10-01] MEDS: EPOETIN ALFA-EPBX (ESRD) 3,000 UNIT/ML VIAL SC SCH (17:50)
[2018-10-01] MEDS: ATORVASTATIN 40 MG TAB PO SCH (21:01)
[2018-10-01] MEDS: ONDANSETRON 4 MG TAB PO PRN (21:14)
[2018-10-01] MEDS: ZOLPIDEM 5 MG TAB PO PRN (23:01)
--- NOTE | 2018-10-01 23:11 | PN ---
Date/Time of Note Date/Time of Note DATE: 10/01/18 TIME: 23:10 Assessment/Plan Lines/Catheters IV Catheter Type (from Nrs): Saline Lock Pierre in Place (from Nrs): No Assessment/Plan Chief Complaint/Hosp Course -No current vascular intervention at this time given GIB and severe CAD. Life over limb at this time. -LLE toe gangrene dry and stable -Will continue to monitor his progress Subjective 24 Hr Interval Summary Constitutional: no complaints Exam/Review of Systems Vital Signs Vitals Vital Signs Date Temp Pulse Resp B/P (MAP) Pulse Ox O2 O2 Flow FiO2 Time Delivery Rate 10/01/18 77 12 115/60 97 Room Air 22:00 (78) 10/01/18 98.8 20:00 09/29/18 4.0 09:10 Intake and Output 09/30/18 09/30/18 10/01/18 1515:00 23:00 07:00 IntakeIntake Total 100 ml 35 ml OutputOutput Total 75 ml 50 ml BalanceBalance 25 ml -15 ml Results Result Diagram: 10/01/18 0448 10/01/18 0448 AVNIA PEREYRA MD October 01, 2018 23:11
--- NOTE | 2018-10-01 23:57 | CONS ---
DATE OF ADMISSION: 09/24/2018 DATE OF CONSULTATION: 09/24/2018 VASCULAR SURGERY CONSULTATION Dear Doctors: Mr. Arora is a 67-year-old gentleman known to our vascular surgery service with plethora of medical conditions and end-stage renal disease who had underwent a left arm brachiocephalic fistula creation in the past. Further, the patient has history of bilateral lower extremity atherosclerosis with disabling claudication in which she had underwent a lower extremity angiogram and intervention at outside facility which led to the patient having likely embolization and leading to a recent findings of the third toe gangrene with progression to the first and second toe. The patient recently was admitted in 08/2018 with left lower extremity cellulitis and third toe ulceration that has now progressed to gangrene. The patient underwent CT angiography abdomen and pelvis with bilateral lower extremity runoff which identified the patient having a bilateral lower extremity infrainguinal atherosclerotic disease. Further, the patient has a history of lower extremity deep venous thrombosis and possible paroxysmal atrial fibrillation which he has been on anticoagulation and antiplatelet therapy. It appears that the patient has now developed an upper GI bleed and scheduled to undergo endoscopy with our GI colleagues. Vascular surgery consultation has been obtained for further evaluation. The patient currently denies shortness of breath, chest pain, nausea, vomiting, fever or chills. He is still having some left third toe discomfort; however, much improved than 4 weeks ago. REVIEW OF SYSTEMS: A 14-point review performed and negative except what is mentioned in the HPI. PAST MEDICAL HISTORY: Diabetes, morbid obesity, BMI of 36, end-stage renal disease, anemia of chronic disease, coronary artery disease, atrial fibrillation, DVT, hypercholesterolemia, hypertension, bilateral lower extremity atherosclerosis with claudication. PAST SURGICAL HISTORY: Left arm brachiocephalic fistula creation, left upper extremity fistulogram with intervention, permanent hemodialysis catheter placement, multiple left lower extremity endovascular interventions at an outside facility. FAMILY HISTORY: Positive for hypertension. SOCIAL HISTORY: Denies current tobacco, alcohol or illicit drug use. PHYSICAL EXAMINATION: GENERAL: Alert and oriented x3, no apparent distress. HEENT: Normocephalic, atraumatic. Mucosa moist. NECK: Supple, no carotid bruit. PULMONARY: Clear to auscultation bilaterally. No crackles. CARDIOVASCULAR: S1, S2 present. Irregularly irregular. ABDOMEN: Soft, nontender, nondistended. Bowel sounds positive. Large truncal obesity. EXTREMITIES: Right lower extremity palpable femoral pulse, nonpalpable pedal pulse. Motor, sensory intact. Cap refill 3 to 4 seconds. Presence of varicose veins and large leg. Left lower extremity palpable femoral pulse, nonpalpable pedal pulse. Motor, sensory intact. Cap refill 3 to 4 seconds. Third toe gangrene site. First and second toe with previous bluish discoloration. It appears to be resolving. Varicose veins and edema of the left lower extremity with presence of mild lipodermatosclerosis. Left upper extremity: Palpable brachial pulse, motor and sensory intact, fistula with bruit and thrill present, sutures to be removed ASSESSMENT AND PLAN: -Bilateral lower extremity atherosclerosis with left lower extremity with left lower extremity third toe gangrene: It seems that the patient's left lower extremity third toe has become dry gangrene and currently stable. Unfortunately his first and second toe have also become gangrene with no significant erythema. The patient's foot pain has gradually improved since we had seen him a month ago and followed him in the office over the past few weeks. From a vascular surgery standpoint, recommend no current intervention as the patient has likely an upper gastrointestinal bleed. We are hoping that the patient's lower extremity atherosclerotic disease will not worsen during this period of time. Given that the patient's anticoagulation antiplatelet therapy will need to be held until his gastrointestinal evaluation has solved -Bilateral lower extremity varicose veins and edema: The patient has component of mixed disease (venous insufficiency and arterial sufficiency). At the moment, we recommend elevation of the bilateral lower extremities while at rest. No further intervention will be needed and can be followed as an outpatient in regards to venous insufficiency. -End-stage renal disease: At the moment the patient's left upper extremity fistula is functional and tolerating to needle cannulations. Recommend usinf 17 gauge needle for cannulation for now. 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 Optimize vascular status (BP meds, diet, nutrition, exercise, sugar control). We will resume antiplatelet therapy once cleared from GI standpoint. Discussed findings, plan and management with the patient and at the bedside and they understand. Thank you for allowing us to partake in the care of your patient. Please call with any questions. A certified access manager was present throughout the conversation. Dictated By: VANIA SANTIAGO/FREDY Conf#: [id number] [facility]#: [id number] CC: CAREN BULL MD;*EndCC* MTDD
[2018-10-02] VITALS (38 sets, daily range): BP systolic 86–141; BP diastolic 33–84; PULSE 39–98; RESP 13–22
[2018-10-02] MEDS: INSULIN ASPART [NOVOLOG] 3 ML PEN SC SCH ×6 (00:44→21:38)
[2018-10-02] MEDS: ACCU-CHEK XX SCH (01:40)
[2018-10-02] MEDS: FUROSEMIDE 40 MG TAB PO SCH ×2 (05:07→17:36)
[2018-10-02] MEDS: PANTOPRAZOLE 40 MG INJ IV SCH ×2 (05:07→17:35)
[2018-10-02] MEDS: SEVELAMER CARBONATE 0.8 GM PKT PO SCH ×3 (08:02→17:35)
[2018-10-02] MEDS: INSULIN GLARGINE [LANTus] (100 UNITS/ML) SYG SC SCH (08:06)
[2018-10-02] MEDS: EZETIMIBE 10 MG TAB PO SCH (08:09)
[2018-10-02] MEDS: SUCRALFATE (100 MG/ML) 10ML CUP GTB SCH ×4 (08:09→21:19)
[2018-10-02] MEDS: ASPIRIN 81 MG TAB PO SCH (08:09)
[2018-10-02] MEDS: FERROUS FUMARATE (SR) TAB PO SCH ×2 (08:10→23:42)
[2018-10-02] MEDS: MULTIVIT/CA CARB/B CMPLX/FA TAB PO SCH (08:10)
[2018-10-02] MEDS: PENTOXIFYLLINE (SR) 400 MG TAB PO SCH (08:10)
[2018-10-02] MEDS: FOLIC ACID 1 MG TAB PO SCH (08:10)
[2018-10-02] MEDS: ASCORBIC ACID 500 MG TAB PO SCH ×2 (08:10→21:20)
[2018-10-02] MEDS: ISOSORBIDE MONONITRATE(SR)60 MG TAB PO SCH (08:10)
--- NOTE | 2018-10-02 09:02 | CONS ---
Assessment/Plan Assessment/Plan Assessment/Plan (Daily) 1. acute Hyperkalemia due to GI bleeding- resolved 2.Acute fluid overload with Uremia BUN 111 on admission 3. acute GI bleeding causing acute blood loss anemia 4. Severe Anemia with Hb 5.8 on admission 5. H/O HTN 6. H/O peripherla vascular disease 7. ESRD on HD 8. acute NSTEMI s/p LHC on 09/30/18 that showed 3 V CAD- recommended CABG, s/p Evaluation by CT surgeon Plan: s/p 5 units PRBC trnasfusion during this admission , Hb 11 , BP stable, S/p Status post EGD/colonoscopy 09/27/19 -Anastomosis ulcer -Normal colonoscopy s/p HD yesterday 2.5 L removed, -follow up at [facility] [place] scheduled HD on MWF- Today during HD it did not work well, Only 300 cc removed, D/w Dr. Rod figueroa, will plan for AVF US today will keep pt on HD scheduel on Saturday also Lasix 40mg pO BID - will follow up Consultation Date/Type/Reason Admit Date/Time September 24, 2018 at 08:08 Initial Consult Date 09/24/18 Type of Consult NEPHROLOGY Requesting Provider: LAVON SEE Date/Time of Note DATE: 10/02/18 TIME: 09:02 Exam/Review of Systems Exam Vitals Vital Signs Date Temp Pulse Resp B/P (MAP) Pulse Ox O2 O2 Flow FiO2 Time Delivery Rate 10/02/18 83 08:00 10/02/18 107/47 95 Room Air 06:00 (67) 10/02/18 98.4 04:00 09/29/18 4.0 09:10 Intake and Output 10/01/18 10/01/18 10/02/18 1515:00 23:00 07:00 IntakeIntake Total 440 ml 260 ml 50 ml OutputOutput Total 3850 ml 120 ml 0 ml BalanceBalance -3410 ml 140 ml 50 ml Exam Constitutional: alert, awake Respiratory: normal air movement, crackles/rales, diminished breath sounds Cardiovascular: regular rate and rhythm, nl pulses Gastrointestinal: soft, non-tender Musculoskeletal: nl extremities to inspection, swelling Extremities: normal pulses 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: ZIGZAG TOPSTITCHER II-XII intact, other (non focal ) Results Result Diagram: 5/9/19 0449 10/02/18 0449 Results 24hrs Laboratory Tests Test 10/01/18 12:09 10/01/18 14:26 10/01/18 17:36 10/01/18 20:58 Bedside Glucose 112 111 168 239 H Test 10/02/18 00:41 10/02/18 04:49 10/02/18 05:06 10/02/18 07:57 Bedside Glucose 174 180 289 H White Blood Count 9.0 Red Blood Count 3.35 L Hemoglobin 9.9 L Hematocrit 30.4 L Mean Corpuscular Volume 90.7 Mean Corpuscular 29.6 Hemoglobin Mean Corpuscular 32.6 Hemoglobin Concent Red Cell Distribution 15.9 H Width Platelet Count 300 Mean Platelet Volume 10.8 H Immature Granulocytes % 0.600 H Neutrophils % 66.4 Lymphocytes % 14.5 L Monocytes % 13.1 H Eosinophils % 4.6 Basophils % 0.8 Nucleated Red Blood 0.0 Cells % Immature Granulocytes # 0.050 H Neutrophils # 6.0 Lymphocytes # 1.3 Monocytes # 1.2 H Eosinophils # 0.4 Basophils # 0.1 Nucleated Red Blood 0.0 Cells # Sodium Level 138 Potassium Level 3.7 Chloride Level 97 Carbon Dioxide Level 28 Anion Gap 13 Blood Urea Nitrogen 27 #H Creatinine 6.93 H Est Glomerular Filtrat 8 L Rate mL/min Glucose Level 146 Calcium Level 8.5 Magnesium Level 2.1 Medications Medication Current Medications EZETIMIBE (Zetia) 10 mg DAILY PO Last administered on 10/02/18at 08:09; Admin Dose 10 MG; Start 09/25/18 at 09:00 Folic Acid (Folic Acid) 1 mg DAILY PO Last administered on 10/02/18at 08:10; Admin Dose 1 MG; Start 09/25/18 at 09:00 Multivit/Ca Carb/ B Cmplx/FA/Prenat (Isabel-Brenda) 1 tab DAILY PO Last administered on 10/02/18 08:10; Admin Dose 1 TAB; Start 09/25/18 at 09:00 Sevelamer Carbonate (Renvela) 0.8 gm WITH MEALS PO Last administered on 10/02/18at 08:02; Admin Dose 0.8 GM; Start 09/24/18 at 17:55 IV Flush (NS 3 ml) 3 ml PER PROTOCOL IV ; Start 09/24/18 at 12:30 Ondansetron HCl (Zofran Tab) 4 mg Q6H PRN PO NAUSEA/VOMITING Last administered on 10/01/18at 21:14; Admin Dose 4 MG; Start 09/24/18 at 12:30 Acetaminophen (Tylenol Tab) 650 mg Q6H PRN PO .PAIN 1-3 OR TEMP Last administered on 09/29/18 19:43; Admin Dose 650 MG; Start 09/24/18 at 12:30 Diagnostic Test (Pha) (Accu-Chek) 1 ea 02 XX Last administered on 10/01/18 02:04; Admin Dose 1 EA; Start 09/25/18 at 02:00 Insulin Glargine (Lantus) 31 units DAILY@0800 SC Last administered on 10/02/18 08:06; Admin Dose 31 UNITS; Start 09/24/18 at 12:30 Insulin Aspart (Novolog Insulin Pen) NOVOLOG *MILD* ALGORI... Q4 SC Last administered on 10/02/18at 08:16; Admin Dose 4 UNIT; Start 09/24/18 at 13:00 Miscellaneous Information 1 ea NOTE XX ; Start 09/24/18 at 13:30 Glucose (Glutose) 15 gm Q15M PRN PO DECREASED GLUCOSE; Start 09/24/18 at 13:30 Glucose (Glutose) 22.5 gm Q15M PRN PO DECREASED GLUCOSE; Start 09/24/18 at 13:30 Dextrose (D50w Syringe) 25 ml Q15M PRN IV DECREASED GLUCOSE; Start 09/24/18 at 13:30 Dextrose (D50w Syringe) 50 ml Q15M PRN IV DECREASED GLUCOSE; Start 09/24/18 at 13:30 Glucagon (Glucagen) 1 mg Q15M PRN IM DECREASED GLUCOSE; Start 09/24/18 at 13:30 Glucose (Glutose) 15 gm Q15M PRN BUCCAL DECREASED GLUCOSE; Start 09/24/18 at 13:30 Albumin Human 100 ml @ 100 mls/hr WITH DIALYSIS PRN IV SBP <90 DURING DIALYSIS; Start 09/24/18 at 18:30 Sodium Chloride (NS) -To prime the dialy... DIRECTED FOR HD PRN IV HD; Start 09/24/18 at 18:30 Atorvastatin Calcium (Lipitor) 40 mg HS PO Last administered on 10/01/18 21:01; Admin Dose 40 MG; Start 09/25/18 at 21:00 Pentoxifylline (Trental) 400 mg DAILY PO Last administered on 10/02/18 08:10; Admin Dose 400 MG; Start 09/27/18 at 09:00 Docusate Sodium/ Ferrous Fumarate (Les-Sequels) 1 tab BID PO Last administered on 10/02/18 08:10; Admin Dose 1 TAB; Start 09/27/18 at 21:00; Stop 10/27/18 at 20:59 Furosemide (Lasix) 40 mg BID DIURETICS PO Last administered on 10/02/18 05:07; Admin Dose 40 MG; Start 09/26/18 at 18:00 Acetaminophen/ Hydrocodone Bitart ([place] (5/325)) 1 tab Q4H PRN PO PAIN LEVEL 1-5; Start 09/27/18 at 03:00 Acetaminophen/ Hydrocodone Bitart ([place] (5/325)) 2 tab Q4H PRN PO PAIN LEVEL 6-10 Last administered on 09/30/18 19:25; Admin Dose 2 TAB; Start 09/27/18 at 03:00 Pantoprazole (Protonix Iv) 40 mg BID@06,18 IV Last administered on 10/02/18 05:07; Admin Dose 40 MG; Start 09/27/18 at 18:00 Nitroglycerin (Nitroglycerin (Sl Tab) 0.4 Mg) 1 tab Q5M PRN SL ANGINA Last administered on 09/28/18 06:05; Admin Dose 1 TAB; Start 09/28/18 at 03:30 Ipratropium [place] (Atrovent Hfa) 2 puff QID RESP THERAPY PRN INH SHORTNESS OF BREATH; Start 09/28/18 at 04:00 Levalbuterol (Xopenex Neb) 1.25 mg Q4H RESP THERAPY PRN HHN SHORTNESS OF BREATH; Start 09/28/18 at 04:00 Ascorbic Acid (Vitamin C) 500 mg BID PO Last administered on 10/02/18 08:10; Admin Dose 500 MG; Start 09/28/18 at 21:00; Stop 10/28/18 at 20:59 Sucralfate (Carafate Susp) 1 gm QID GTB Last administered on 10/02/18 08:09; Admin Dose 1 GM; Start 09/28/18 at 13:00; Stop 10/12/18 at 12:59 Isosorbide Mononitrate (Imdur) 60 mg DAILY PO Last administered on 10/02/18 08:10; Admin Dose 60 MG; Start 09/28/18 at 15:00 Aspirin (Aspirin) 81 mg DAILY PO Last administered on 10/02/18 08:09; Admin Dose 81 MG; Start 09/30/18 at 09:00 Zolpidem Tartrate (Ambien) 5 mg HS PRN PO INSOMNIA Last administered on 10/01/18at 23:01; Admin Dose 5 MG; Start 09/30/18 at 00:00 Epoetin Jero-epbx (Retacrit) 6,000 unit MoWeFr@1700 SC Last administered on 10/01/18at 17:50; Admin Dose 6,000 UNIT; Start 10/01/18 at 17:00 RAQUEL MCDOWELL MD October 02, 2018 09:02
--- NOTE | 2018-10-02 09:30 | PN ---
Date/Time of Note Date/Time of Note DATE: 10/02/18 TIME: 09:03 Assessment/Plan Lines/Catheters IV Catheter Type (from Nrs): Saline Lock [place] in Place (from Nrs): No Assessment/Plan Chief Complaint/Hosp Course -No current vascular intervention at this time given GIB and severe CAD. Life over limb at this time. -LLE toe gangrene dry and stable -Will continue to monitor his progress Bilateral lower extremity atherosclerosis with left lower extremity with left lower extremity third toe gangrene: It seems that the patient's left lower extremity third toe has become dry gangrene and currently stable. Unfortunately his first and second toe have also become gangrene with no significant erythema. The patient's foot pain has gradually improved since we had seen him a month ago and followed him in the office over the past few weeks. From a vascular surgery standpoint, recommend no current intervention as the patient has likely an upper gastrointestinal bleed. We are hoping that the patient's lower extremity atherosclerotic disease will not worsen during this period of time. Given that the patient's anticoagulation antiplatelet therapy will need to be held until his gastrointestinal evaluation has solved -Bilateral lower extremity varicose veins and edema: The patient has component of mixed disease (venous insufficiency and arterial sufficiency). At the moment, we recommend elevation of the bilateral lower extremities while at rest. No further intervention will be needed and can be followed as an outpatient in regards to venous insufficiency. -End-stage renal disease: At the moment the patient's left upper extremity fistula is functional and tolerating to needle cannulations. Recommend usinf 17 gauge needle for cannulation for now. 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 Optimize vascular status (BP meds, diet, nutrition, exercise, sugar control). We will resume antiplatelet therapy once cleared from GI standpoint. Discussed findings, plan and management with the patient and at the bedside and they understand. Thank you for allowing us to partake in the care of your patient. Please call with any questions. A certified graduation coach was present throughout the conversation. Subjective 24 Hr Interval Summary no new vascular events, tolerating HD Constitutional: no complaints Exam/Review of Systems Vital Signs Vitals Vital Signs Date Temp Pulse Resp B/P (MAP) Pulse Ox O2 O2 Flow FiO2 Time Delivery Rate 10/02/18 89 14 138/60 97 Room Air 09:00 (86) 10/02/18 98.3 07:00 09/29/18 4.0 09:10 Intake and Output 10/01/18 10/01/18 10/02/18 1414:59 22:59 06:59 IntakeIntake Total 440 ml 210 ml 100 ml OutputOutput Total 3850 ml 120 ml 0 ml BalanceBalance -3410 ml 90 ml 100 ml Exam Free Text/Dictation GENERAL: Alert and oriented x3, no apparent distress. HEENT: Normocephalic, atraumatic. Mucosa moist. NECK: Supple, no carotid bruit. PULMONARY: Clear to auscultation bilaterally. No crackles. CARDIOVASCULAR: S1, S2 present. Irregularly irregular. ABDOMEN: Soft, nontender, nondistended. Bowel sounds positive. Large truncal obesity. EXTREMITIES: Right lower extremity palpable femoral pulse, nonpalpable pedal pulse. Motor, sensory intact. Cap refill 3 to 4 seconds. Presence of varicose veins and large leg. Left lower extremity palpable femoral pulse, nonpalpable pedal pulse. Motor, sensory intact. Cap refill 3 to 4 seconds. Third toe gangrene site. First and second toe with previous bluish discoloration and formation of gangrene. Varicose veins and edema of the left lower extremity with presence of mild lipodermatosclerosis. Left upper extremity: Palpable brachial pulse, motor/sensory intact, fistula with bruit and thrill present Results Result Diagram: 10/02/18 0449 10/02/18 0449 VANIA PEREYRA MD October 02, 2018 09:14
--- NOTE | 2018-10-02 09:36 | CONS ---
Assessment/Plan Assessment/Plan Hospital Course (Demo Recall) NSTEMI: chest pain 09/28 3 am and none since. Trop peak 1.1 and trended down. S/p cath 09/30/18 with diffuse multivessel CAD best suitable for CABG for this diabetic pt. Seen by cardiac surgery. Plan is to wait a few days to let the ulcer heal before surgery Upper GI bleed: due to anastomotic ulcer seen on EGD 09/26. No bleeding since even on heparin drip Anemia: due to above. s/p 5 units PRBCs. Stable Wenckebach: Mobitz 1. Not on BB. No pauses or high grade block. 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 Now stopped DM ESRD on HD MWF HTN H/o Billroth -ok for transfer to tele -CABG pending -ASA 81mg daily -continue imdur 60mg -lipitor 40mg -lasix 40mg PO BID -HD per nephrology Consultation Date/Type/Reason Admit Date/Time September 24, 2018 at 08:08 Initial Consult Date 09/24/18 Type of Consult Cardiology Requesting Provider: LAVON SEE Date/Time of Note DATE: 10/02/18 TIME: 09:33 24 HR Interval Summary Free Text/Dictation No events. Waiting for tele bed. Had a hard, dark BM yesterday. Hgb stable today. No chest pain Exam/Review of Systems Vital Signs Vitals Vital Signs Date Temp Pulse Resp B/P (MAP) Pulse Ox O2 O2 Flow FiO2 Time Delivery Rate 10/02/18 89 14 138/60 97 Room Air 09:00 (86) 10/02/18 98.3 07:00 09/29/18 4.0 09:10 Intake and Output 10/01/18 10/01/18 10/02/18 1515:00 23:00 07:00 IntakeIntake Total 440 ml 260 ml 50 ml OutputOutput Total 3850 ml 120 ml 0 ml BalanceBalance -3410 ml 140 ml 50 ml Exam Constitutional: alert, oriented Psych: no complaints, nl mood/affect Head: normocephalic, atraumatic Neck: supple; No jvd Respiratory: diminished breath sounds; No clear to auscultation Cardiovascular: regular rate and rhythm; No edema Gastrointestinal: soft, non-tender; No distended 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: nl mental status, nl speech Labs Result Diagram: 10/02/189 10/02/18 0449 Results 24hrs Laboratory Tests Test 10/01/18 12:09 10/01/18 14:26 10/01/18 17:36 10/01/18 20:58 Bedside Glucose 112 111 168 239 H Test 10/02/18 00:41 10/02/18 04:49 10/02/18 05:06 10/02/18 07:57 Bedside Glucose 174 180 289 H White Blood Count 9.0 Red Blood Count 3.35 L Hemoglobin 9.9 L Hematocrit 30.4 L Mean Corpuscular Volume 90.7 Mean Corpuscular 29.6 Hemoglobin Mean Corpuscular 32.6 Hemoglobin Concent Red Cell Distribution 15.9 H Width Platelet Count 300 Mean Platelet Volume 10.8 H Immature Granulocytes % 0.600 H Neutrophils % 66.4 Lymphocytes % 14.5 L Monocytes % 13.1 H Eosinophils % 4.6 Basophils % 0.8 Nucleated Red Blood 0.0 Cells % Immature Granulocytes # 0.050 H Neutrophils # 6.0 Lymphocytes # 1.3 Monocytes # 1.2 H Eosinophils # 0.4 Basophils # 0.1 Nucleated Red Blood 0.0 Cells # Sodium Level 138 Potassium Level 3.7 Chloride Level 97 Carbon Dioxide Level 28 Anion Gap 13 Blood Urea Nitrogen 27 #H Creatinine 6.93 H Est Glomerular Filtrat 8 L Rate mL/min Glucose Level 146 Calcium Level 8.5 Magnesium Level 2.1 Medications Medications Current Medications EZETIMIBE (Zetia) 10 mg DAILY PO Last administered on 10/02/18at 08:09; Admin Dose 10 MG; Start 09/25/18 at 09:00 Folic Acid (Folic Acid) 1 mg DAILY PO Last administered on 10/02/18at 08:10; Admin Dose 1 MG; Start 09/25/18 at 09:00 Multivit/Ca Carb/ B Cmplx/FA/Prenat (Isabel-Brenda) 1 tab DAILY PO Last administered on 10/02/18at 08:10; Admin Dose 1 TAB; Start 09/25/18 at 09:00 Sevelamer Carbonate (Renvela) 0.8 gm WITH MEALS PO Last administered on 10/02/18 08:02; Admin Dose 0.8 GM; Start 09/24/18 at 17:55 IV Flush (NS 3 ml) 3 ml PER PROTOCOL IV ; Start 09/24/18 at 12:30 Ondansetron HCl (Zofran Tab) 4 mg Q6H PRN PO NAUSEA/VOMITING Last administered on 10/01/18 21:14; Admin Dose 4 MG; Start 09/24/18 at 12:30 Acetaminophen (Tylenol Tab) 650 mg Q6H PRN PO .PAIN 1-3 OR TEMP Last administered on 09/29/18 19:43; Admin Dose 650 MG; Start 09/24/18 at 12:30 Diagnostic Test (Pha) (Accu-Chek) 1 ea 02 XX Last administered on 10/01/18 02:04; Admin Dose 1 EA; Start 09/25/18 at 02:00 Insulin Glargine (Lantus) 31 units DAILY@0800 SC Last administered on 10/02/18 08:06; Admin Dose 31 UNITS; Start 09/24/18 at 12:30 Insulin Aspart (Novolog Insulin Pen) NOVOLOG *MILD* ALGORI... Q4 SC Last administered on 10/02/18 08:16; Admin Dose 4 UNIT; Start 09/24/18 at 13:00 Miscellaneous Information 1 ea NOTE XX ; Start 09/24/18 at 13:30 Glucose (Glutose) 15 gm Q15M PRN PO DECREASED GLUCOSE; Start 09/24/18 at 13:30 Glucose (Glutose) 22.5 gm Q15M PRN PO DECREASED GLUCOSE; Start 09/24/18 at 13:30 Dextrose (D50w Syringe) 25 ml Q15M PRN IV DECREASED GLUCOSE; Start 09/24/18 at 13:30 Dextrose (D50w Syringe) 50 ml Q15M PRN IV DECREASED GLUCOSE; Start 09/24/18 at 13:30 Glucagon (Glucagen) 1 mg Q15M PRN IM DECREASED GLUCOSE; Start 09/24/18 at 13:30 Glucose (Glutose) 15 gm Q15M PRN BUCCAL DECREASED GLUCOSE; Start 09/24/18 at 13:30 Albumin Human 100 ml @ 100 mls/hr WITH DIALYSIS PRN IV SBP <90 DURING DIALYSIS; Start 09/24/18 at 18:30 Sodium Chloride (NS) -To prime the dialy... DIRECTED FOR HD PRN IV HD; Start 09/24/18 at 18:30 Atorvastatin Calcium (Lipitor) 40 mg HS PO Last administered on 10/01/18 21:01; Admin Dose 40 MG; Start 09/25/18 at 21:00 Pentoxifylline (Trental) 400 mg DAILY PO Last administered on 10/02/18 08:10; Admin Dose 400 MG; Start 09/27/18 at 09:00 Docusate Sodium/ Ferrous Fumarate (Les-Sequels) 1 tab BID PO Last administered on 10/02/18 08:10; Admin Dose 1 TAB; Start 09/27/18 at 21:00; Stop 10/27/18 at 20:59 Furosemide (Lasix) 40 mg BID DIURETICS PO Last administered on 10/02/18 05:07; Admin Dose 40 MG; Start 09/26/18 at 18:00 Acetaminophen/ Hydrocodone Bitart ([place] (5/325)) 1 tab Q4H PRN PO PAIN LEVEL 1-5; Start 09/27/18 at 03:00 Acetaminophen/ Hydrocodone Bitart ([place] (5/325)) 2 tab Q4H PRN PO PAIN LEVEL 6-10 Last administered on 09/30/18 19:25; Admin Dose 2 TAB; Start 09/27/18 at 03:00 Pantoprazole (Protonix Iv) 40 mg BID@06,18 IV Last administered on 10/02/18 05:07; Admin Dose 40 MG; Start 09/27/18 at 18:00 Nitroglycerin (Nitroglycerin (Sl Tab) 0.4 Mg) 1 tab Q5M PRN SL ANGINA Last administered on 09/28/18 06:05; Admin Dose 1 TAB; Start 09/28/18 at 03:30 Ipratropium [place] (Atrovent Hfa) 2 puff QID RESP THERAPY PRN INH SHORTNESS OF BREATH; Start 09/28/18 at 04:00 Levalbuterol (Xopenex Neb) 1.25 mg Q4H RESP THERAPY PRN HHN SHORTNESS OF AMI TH; Start 09/28/18 at 04:00 Ascorbic Acid (Vitamin C) 500 mg BID PO Last administered on 10/02/18 08:10; Admin Dose 500 MG; Start 09/28/18 at 21:00; Stop 10/28/18 at 20:59 Sucralfate (Carafate Susp) 1 gm QID GTB Last administered on 10/02/18 08:09; Admin Dose 1 GM; Start 09/28/18 at 13:00; Stop 10/12/18 at 12:59 Isosorbide Mononitrate (Imdur) 60 mg DAILY PO Last administered on 10/02/18 08:10; Admin Dose 60 MG; Start 09/28/18 at 15:00 Aspirin (Aspirin) 81 mg DAILY PO Last administered on 10/02/18 08:09; Admin Dose 81 MG; Start 09/30/18 at 09:00 Zolpidem Tartrate (Ambien) 5 mg HS PRN PO INSOMNIA Last administered on 10/01/18at 23:01; Admin Dose 5 MG; Start 09/30/18 at 00:00 Epoetin Jero-epbx (Retacrit) 6,000 unit MoWeFr@1700 SC Last administered on 10/01/18at 17:50; Admin Dose 6,000 UNIT; Start 10/01/18 at 17:00 LAVON SEE October 02, 2018 09:36
--- NOTE | 2018-10-02 10:29 | PN ---
Date/Time of Note Date/Time of Note DATE: 10/02/18 TIME: 10:24 Assessment/Plan VTE Prophylaxis Risk score (from Ns)>0 risk: 7 SCD applied (from Ns): No SCD contraindicated: bilateral LE trauma Pharmacological prophylaxis: other (asa) Lines/Catheters [facility] Saline Lock Urinary Cath still in place: No Assessment/Plan Hospital Course Assessment/Plan Assessment: Severe acute on chronic anemia Status post EGD 09/26/2018 -Anastomosis ulcer Status post Colonoscopy 09/26/18 Scattered diverticula No red blood noted no active bleeding, Black particulate matter- likely melanotic Rectal polyp removed Biopsy shows rectal polyp is compatible with diminutive inflammatory polyp no adenoma is identified Melena- resolved ESRD on HD DM Bilateral lower extremity atherosclerosis with left 3rd toe gangrene Kaylee Hicks type 1 NSTEMI S/p [facility] 09/30 -Diffuse multivessel CAD -Best suitable for CABG Plan: Continue Protonix BID/Carafate CABG pending- allow time for Anastomosis ulcer to heal Monitor h/h transfuse as needed Patient seen in collaboration with Dr. Cardoza Subjective: X1 dark stool noted yesterday, however hgb stable today, no further episodes of GI bleed. Will maintain close observation. Currently receiving dialysis. No c/o v/n or abd pain PHYSICAL EXAMINATION: GENERAL: Alert & oriented x 3, in no acute distress SKIN: No lesions EYES: Pupils equal reactive to light, no discharge. EARS/NOSE AND THROAT: Ears normal, nose normal. NECK: Supple, no masses CARDIOVASCULAR: Heart: Regular rate and rhythm, RESPIRATORY: Lungs clear to auscultation GASTROINTESTINAL AND LIVER: Abdomen: Soft, non tenderness, normoactive bowel sounds. Rectal: Deferred. GENITOURINARY: [Male genitalia within normal limits. EXTREMITIES: No cyanosis, clubbing or edema. Result Diagram: 10/02/18 0449 10/02/18 0449 Results 24hrs Laboratory Tests Test 10/01/18 12:09 10/01/18 14:26 10/01/18 17:36 10/01/18 20:58 Bedside Glucose 112 111 168 239 H Test 10/02/18 00:41 10/02/18 04:49 10/02/18 05:06 10/02/18 07:57 Bedside Glucose 174 180 289 H White Blood Count 9.0 Red Blood Count 3.35 L Hemoglobin 9.9 L Hematocrit 30.4 L Mean Corpuscular Volume 90.7 Mean Corpuscular 29.6 Hemoglobin Mean Corpuscular 32.6 Hemoglobin Concent Red Cell Distribution 15.9 H Width Platelet Count 300 Mean Platelet Volume 10.8 H Immature Granulocytes % 0.600 H Neutrophils % 66.4 Lymphocytes % 14.5 L Monocytes % 13.1 H Eosinophils % 4.6 Basophils % 0.8 Nucleated Red Blood 0.0 Cells % Immature Granulocytes # 0.050 H Neutrophils # 6.0 Lymphocytes # 1.3 Monocytes # 1.2 H Eosinophils # 0.4 Basophils # 0.1 Nucleated Red Blood 0.0 Cells # Sodium Level 138 Potassium Level 3.7 Chloride Level 97 Carbon Dioxide Level 28 Anion Gap 13 Blood Urea Nitrogen 27 #H Creatinine 6.93 H Est Glomerular Filtrat 8 L Rate mL/min Glucose Level 146 Calcium Level 8.5 Magnesium Level 2.1 Exam/Review of Systems Exam Vitals Vital Signs Date Temp Pulse Resp B/P (MAP) Pulse Ox O2 O2 Flow FiO2 Time Delivery Rate 10/02/18 89 14 138/60 97 Room Air 09:00 (86) 10/02/18 98.3 07:00 09/29/18 4.0 09:10 Intake and Output 10/01/18 10/01/18 10/02/18 1515:00 23:00 07:00 IntakeIntake Total 440 ml 260 ml 50 ml OutputOutput Total 3850 ml 120 ml 0 ml BalanceBalance -3410 ml 140 ml 50 ml Results Results 24hrs Laboratory Tests Test 10/01/18 12:09 10/01/18 14:26 10/01/18 17:36 10/01/18 20:58 Bedside Glucose 112 111 168 239 H Test 10/02/18 00:41 10/02/18 04:49 10/02/18 05:06 10/02/18 07:57 Bedside Glucose 174 180 289 H White Blood Count 9.0 Red Blood Count 3.35 L Hemoglobin 9.9 L Hematocrit 30.4 L Mean Corpuscular Volume 90.7 Mean Corpuscular 29.6 Hemoglobin Mean Corpuscular 32.6 Hemoglobin Concent Red Cell Distribution 15.9 H Width Platelet Count 300 Mean Platelet Volume 10.8 H Immature Granulocytes % 0.600 H Neutrophils % 66.4 Lymphocytes % 14.5 L Monocytes % 13.1 H Eosinophils % 4.6 Basophils % 0.8 Nucleated Red Blood 0.0 Cells % Immature Granulocytes # 0.050 H Neutrophils # 6.0 Lymphocytes # 1.3 Monocytes # 1.2 H Eosinophils # 0.4 Basophils # 0.1 Nucleated Red Blood 0.0 Cells # Sodium Level 138 Potassium Level 3.7 Chloride Level 97 Carbon Dioxide Level 28 Anion Gap 13 Blood Urea Nitrogen 27 #H Creatinine 6.93 H Est Glomerular Filtrat 8 L Rate mL/min Glucose Level 146 Calcium Level 8.5 Magnesium Level 2.1 Medications Medication Current Medications EZETIMIBE (Zetia) 10 mg DAILY PO Last administered on 10/02/18 08:09; Admin Dose 10 MG; Start 09/25/18 at 09:00 Folic Acid (Folic Acid) 1 mg DAILY PO Last administered on 10/02/18 08:10; Admin Dose 1 MG; Start 09/25/18 at 09:00 Multivit/Ca Carb/ B Cmplx/FA/Prenat (Isabel-Brenda) 1 tab DAILY PO Last administered on 10/02/18 08:10; Admin Dose 1 TAB; Start 09/25/18 at 09:00 Sevelamer Carbonate (Renvela) 0.8 gm WITH MEALS PO Last administered on 10/02/18 08:02; Admin Dose 0.8 GM; Start 09/24/18 at 17:55 IV Flush (NS 3 ml) 3 ml PER PROTOCOL IV ; Start 09/24/18 at 12:30 Ondansetron HCl (Zofran Tab) 4 mg Q6H PRN PO NAUSEA/VOMITING Last administered on 10/01/18 21:14; Admin Dose 4 MG; Start 09/24/18 at 12:30 Acetaminophen (Tylenol Tab) 650 mg Q6H PRN PO .PAIN 1-3 OR TEMP Last administered on 09/29/18 19:43; Admin Dose 650 MG; Start 09/24/18 at 12:30 Diagnostic Test (Pha) (Accu-Chek) 1 ea 02 XX Last administered on 10/01/18 02:04; Admin Dose 1 EA; Start 09/25/18 at 02:00 Insulin Glargine (Lantus) 31 units DAILY@0800 SC Last administered on 5/9/19at 08:06; Admin Dose 31 UNITS; Start 09/24/18 at 12:30 Insulin Aspart (Novolog Insulin Pen) NOVOLOG *MILD* ALGORI... Q4 SC Last administered on 10/02/18at 08:16; Admin Dose 4 UNIT; Start 09/24/18 at 13:00 Miscellaneous Information 1 ea NOTE XX ; Start 09/24/18 at 13:30 Glucose (Glutose) 15 gm Q15M PRN PO DECREASED GLUCOSE; Start 09/24/18 at 13:30 Glucose (Glutose) 22.5 gm Q15M PRN PO DECREASED GLUCOSE; Start 09/24/18 at 13:30 Dextrose (D50w Syringe) 25 ml Q15M PRN IV DECREASED GLUCOSE; Start 09/24/18 at 13:30 Dextrose (D50w Syringe) 50 ml Q15M PRN IV DECREASED GLUCOSE; Start 09/24/18 at 13:30 Glucagon (Glucagen) 1 mg Q15M PRN IM DECREASED GLUCOSE; Start 09/24/18 at 13:30 Glucose (Glutose) 15 gm Q15M PRN BUCCAL DECREASED GLUCOSE; Start 09/24/18 at 13:30 Albumin Human 100 ml @ 100 mls/hr WITH DIALYSIS PRN IV SBP <90 DURING DIALYSIS; Start 09/24/18 at 18:30 Sodium Chloride (NS) -To prime the dialy... DIRECTED FOR HD PRN IV HD; Start 09/24/18 at 18:30 Atorvastatin Calcium (Lipitor) 40 mg HS PO Last administered on 10/01/18at 21:01; Admin Dose 40 MG; Start 09/25/18 at 21:00 Pentoxifylline (Trental) 400 mg DAILY PO Last administered on 10/02/18at 08:10; Admin Dose 400 MG; Start 09/27/18 at 09:00 Docusate Sodium/ Ferrous Fumarate (Les-Sequels) 1 tab BID PO Last administered on 10/02/18at 08:10; Admin Dose 1 TAB; Start 09/27/18 at 21:00; Stop 10/27/18 at 20:59 Furosemide (Lasix) 40 mg BID DIURETICS PO Last administered on 10/02/18at 05:07; Admin Dose 40 MG; Start 09/26/18 at 18:00 Acetaminophen/ Hydrocodone Bitart ([place] (5/325)) 1 tab Q4H PRN PO PAIN LEVEL 1-5; Start 09/27/18 at 03:00 Acetaminophen/ Hydrocodone Bitart ([place] (5/325)) 2 tab Q4H PRN PO PAIN LEVEL 6-10 Last administered on 09/30/18 19:25; Admin Dose 2 TAB; Start 09/27/18 at 03:00 Pantoprazole (Protonix Iv) 40 mg BID@06,18 IV Last administered on 10/02/18 05:07; Admin Dose 40 MG; Start 09/27/18 at 18:00 Nitroglycerin (Nitroglycerin (Sl Tab) 0.4 Mg) 1 tab Q5M PRN SL ANGINA Last administered on 09/28/18 06:05; Admin Dose 1 TAB; Start 09/28/18 at 03:30 Ipratropium [place] (Atrovent Hfa) 2 puff QID RESP THERAPY PRN INH SHORTNESS OF BREATH; Start 09/28/18 at 04:00 Levalbuterol (Xopenex Neb) 1.25 mg Q4H RESP THERAPY PRN HHN SHORTNESS OF BREATH; Start 09/28/18 at 04:00 Ascorbic Acid (Vitamin C) 500 mg BID PO Last administered on 10/02/18 08:10; Admin Dose 500 MG; Start 09/28/18 at 21:00; Stop 10/28/18 at 20:59 Sucralfate (Carafate Susp) 1 gm QID GTB Last administered on 10/02/18 08:09; Admin Dose 1 GM; Start 09/28/18 at 13:00; Stop 10/12/18 at 12:59 Isosorbide Mononitrate (Imdur) 60 mg DAILY PO Last administered on 10/02/18 08:10; Admin Dose 60 MG; Start 09/28/18 at 15:00 Aspirin (Aspirin) 81 mg DAILY PO Last administered on 10/02/18 08:09; Admin Dose 81 MG; Start 09/30/18 at 09:00 Zolpidem Tartrate (Ambien) 5 mg HS PRN PO INSOMNIA Last administered on 10/01/18 23:01; Admin Dose 5 MG; Start 09/30/18 at 00:00 Epoetin Jero-epbx (Retacrit) 6,000 unit MoWeFr@1700 SC Last administered on 10/01/18at 17:50; Admin Dose 6,000 UNIT; Start 10/01/18 at 17:00 HERRERA WORRELL October 02, 2018 10:29
--- NOTE | 2018-10-02 13:45 | PN ---
Date/Time of Note Date/Time of Note DATE: 10/02/18 TIME: 13:41 Assessment/Plan VTE Prophylaxis [place] [facility] risk: 7 SCD applied ([place] [facility] No SCD contraindicated: other Pharmacological prophylaxis: NA/contraindicated Pharm contraindication: bleeding Lines/Catheters [facility] Saline Lock Urinary Cath still in place: No Assessment/Plan Hospital Course SUBJECTIVE: s/p HC 09/30/18. Had black stool yesterday OBJECTIVE: Vital signs-see below PHYSICAL EXAM: Constitutional: Adequately built,not in acute distress. HEENT: Head atraumatic and normocephalic. Eyes: Extraocular muscles intact. Anicteric sclerae. Pupils equal bilaterally, reactive to light. NECK: Supple without lymph node. CHEST: Slight wheezing on right upper lobe. HEART: S1, S2. Regular rate and rhythm. ABDOMEN: Soft/non tender with no rebound tenderness. Bowel sounds were present. EXTREMITIES:BLE 2+edema (improved) w/no palpable DP pulses. 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 NEUROLOGIC: Alert and oriented x3. No focal deficit. No sensory deficit. PSYCHOSOCIAL: No signs of depression. INTEGUMENTARY: left foot 3rd toe chronic dry gangrene. ASSESSMENT AND PLAN:67 yo with numerous comorbidities including dyslipidemia,dmII,ESRD/HD and severe PVD who is also anticoagulated on Eliqu is/Plavix,here with worsening malaise, found to have severe anemia/positive stool OB... also had NSTEMI NSTEMI/Multivessel coronary artery disease s/p [facility] 09/30 -Recommended CABG-times/scheduling pending GI clearance/ulcer healing -Cont antiplatelet/statin-Not a candidate for BB 2/2 HB -f/u cards/cv recs. Severe acute symptomatic blood loss anemia -Improved with multiple transfusion. -Continue iron replacement Upper GI bleed -s/p EGD showed anastomotic ulcer (hx billroth II) -On PPI/Carafate Mobitz type I heart block -Stable -Avoid BB/AV jesus agents. 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 -on Trental for pain -Wound care Obesity with BMI 36.3 -Weight reduction advised. Anemia of ESRD -Consider Epogen with hemodialysis. DVT prophylaxis: SCDs PUD prophylaxis: Protonix Disposition: patient is recommended to have CABG. in light of GI bleed/anastomotic ulcer, timing/scheduling per GI team in conjunction with cardiovascular surgery. Patient is medically stable to be downgraded to a telemetry floor. Continue with dialysis, monitor volume status closely. Patient was seen in collaboration with Dr. Beltran. Result Diagram: 10/02/18 0449 10/02/18448 Results 24hrs Laboratory Tests Test 10/01/18 14:26 10/01/18 17:36 10/01/18 20:58 10/02/18 00:41 Bedside Glucose 111 168 239 H 174 Test 10/02/18 04:49 10/02/18 05:06 10/02/18 07:57 10/02/18 11:48 White Blood Count 9.0 Red Blood Count 3.35 L Hemoglobin 9.9 L Hematocrit 30.4 L Mean Corpuscular Volume 90.7 Mean Corpuscular 29.6 Hemoglobin Mean Corpuscular 32.6 Hemoglobin Concent Red Cell Distribution 15.9 H Width Platelet Count 300 Mean Platelet Volume 10.8 H Immature Granulocytes % 0.600 H Neutrophils % 66.4 Lymphocytes % 14.5 L Monocytes % 13.1 H Eosinophils % 4.6 Basophils % 0.8 Nucleated Red Blood 0.0 Cells % Immature Granulocytes # 0.050 H Neutrophils # 6.0 Lymphocytes # 1.3 Monocytes # 1.2 H Eosinophils # 0.4 Basophils # 0.1 Nucleated Red Blood 0.0 Cells # Sodium Level 138 Potassium Level 3.7 Chloride Level 97 Carbon Dioxide Level 28 Anion Gap 13 Blood Urea Nitrogen 27 #H Creatinine 6.93 H Est Glomerular Filtrat 8 L Rate mL/min Glucose Level 146 Calcium Level 8.5 Magnesium Level 2.1 Bedside Glucose 180 289 H 141 Exam/Review of Systems Exam Vitals Vital Signs Date Temp Pulse Resp B/P (MAP) Pulse Ox O2 O2 Flow FiO2 Time Delivery Rate 5/9/19 86 16 100/52 97 Room Air 13:01 (68) 10/02/18 97.7 12:00 09/29/18 4.0 09:10 Intake and Output 10/01/18 10/01/18 10/02/18 1515:00 23:00 07:00 IntakeIntake Total 440 ml 260 ml 50 ml OutputOutput Total 3850 ml 120 ml 0 ml BalanceBalance -3410 ml 140 ml 50 ml Results Results 24hrs Laboratory Tests Test 10/01/18 14:26 10/01/18 17:36 10/01/18 20:58 10/02/18 00:41 Bedside Glucose 111 168 239 H 174 Test 10/02/18 04:49 10/02/18 05:06 10/02/18 07:57 10/02/18 11:48 White Blood Count 9.0 Red Blood Count 3.35 L Hemoglobin 9.9 L Hematocrit 30.4 L Mean Corpuscular Volume 90.7 Mean Corpuscular 29.6 Hemoglobin Mean Corpuscular 32.6 Hemoglobin Concent Red Cell Distribution 15.9 H Width Platelet Count 300 Mean Platelet Volume 10.8 H Immature Granulocytes % 0.600 H Neutrophils % 66.4 Lymphocytes % 14.5 L Monocytes % 13.1 H Eosinophils % 4.6 Basophils % 0.8 Nucleated Red Blood 0.0 Cells % Immature Granulocytes # 0.050 H Neutrophils # 6.0 Lymphocytes # 1.3 Monocytes # 1.2 H Eosinophils # 0.4 Basophils # 0.1 Nucleated Red Blood 0.0 Cells # Sodium Level 138 Potassium Level 3.7 Chloride Level 97 Carbon Dioxide Level 28 Anion Gap 13 Blood Urea Nitrogen 27 #H Creatinine 6.93 H Est Glomerular Filtrat 8 L Rate mL/min Glucose Level 146 Calcium Level 8.5 Magnesium Level 2.1 Bedside Glucose 180 289 H 141 Medications Medication Current Medications EZETIMIBE (Zetia) 10 mg DAILY PO Last administered on 10/02/18at 08:09; Admin Dose 10 MG; Start 09/25/18 at 09:00 Folic Acid (Folic Acid) 1 mg DAILY PO Last administered on 10/02/18at 08:10; Admin Dose 1 MG; Start 09/25/18 at 09:00 Multivit/Ca Carb/ B Cmplx/FA/Prenat (Isabel-Brenda) 1 tab DAILY PO Last a dministered on 10/02/18 08:10; Admin Dose 1 TAB; Start 09/25/18 at 09:00 Sevelamer Carbonate (Renvela) 0.8 gm WITH MEALS PO Last administered on 10/02/18 12:32; Admin Dose 0.8 GM; Start 09/24/18 at 17:55 IV Flush (NS 3 ml) 3 ml PER PROTOCOL IV ; Start 09/24/18 at 12:30 Ondansetron HCl (Zofran Tab) 4 mg Q6H PRN PO NAUSEA/VOMITING Last administered on 10/01/18 21:14; Admin Dose 4 MG; Start 09/24/18 at 12:30 Acetaminophen (Tylenol Tab) 650 mg Q6H PRN PO .PAIN 1-3 OR TEMP Last administered on 09/29/18 19:43; Admin Dose 650 MG; Start 09/24/18 at 12:30 Diagnostic Test (Pha) (Accu-Chek) 1 ea 02 XX Last administered on 10/01/18 02:04; Admin Dose 1 EA; Start 09/25/18 at 02:00 Insulin Glargine (Lantus) 31 units DAILY@0800 SC Last administered on 10/02/18 08:06; Admin Dose 31 UNITS; Start 09/24/18 at 12:30 Insulin Aspart (Novolog Insulin Pen) NOVOLOG *MILD* ALGORI... Q4 SC Last administered on 10/02/18 12:34; Admin Dose 1 UNIT; Start 09/24/18 at 13:00 Miscellaneous Information 1 ea NOTE XX ; Start 09/24/18 at 13:30 Glucose (Glutose) 15 gm Q15M PRN PO DECREASED GLUCOSE; Start 09/24/18 at 13:30 Glucose (Glutose) 22.5 gm Q15M PRN PO DECREASED GLUCOSE; Start 09/24/18 at 13:30 Dextrose (D50w Syringe) 25 ml Q15M PRN IV DECREASED GLUCOSE; Start 09/24/18 at 13:30 Dextrose (D50w Syringe) 50 ml Q15M PRN IV DECREASED GLUCOSE; Start 09/24/18 at 13:30 Glucagon (Glucagen) 1 mg Q15M PRN IM DECREASED GLUCOSE; Start 09/24/18 at 13:30 Glucose (Glutose) 15 gm Q15M PRN BUCCAL DECREASED GLUCOSE; Start 09/24/18 at 13:30 Albumin Human 100 ml @ 100 mls/hr WITH DIALYSIS PRN IV SBP <90 DURING DIALYSIS; Start 09/24/18 at 18:30 Sodium Chloride (NS) -To prime the dialy... DIRECTED FOR HD PRN IV HD; Start 09/24/18 at 18:30 Atorvastatin Calcium (Lipitor) 40 mg HS PO Last administered on 10/01/18at 21:01; Admin Dose 40 MG; Start 09/25/18 at 21:00 Pentoxifylline (Trental) 400 mg DAILY PO Last administered on 10/02/18 08:10; Admin Dose 400 MG; Start 09/27/18 at 09:00 Docusate Sodium/ Ferrous Fumarate (Les-Sequels) 1 tab BID PO Last administered on 10/02/18 08:10; Admin Dose 1 TAB; Start 09/27/18 at 21:00; Stop 10/27/18 at 20:59 Furosemide (Lasix) 40 mg BID DIURETICS PO Last administered on 10/02/18at 05:07; Admin Dose 40 MG; Start 09/26/18 at 18:00 Acetaminophen/ Hydrocodone Bitart ([place] (5/325)) 1 tab Q4H PRN PO PAIN LEVEL 1-5; Start 09/27/18 at 03:00 Acetaminophen/ Hydrocodone Bitart (Josephine (5/325)) 2 tab Q4H PRN PO PAIN LEVEL 6-10 Last administered on 09/30/18 19:25; Admin Dose 2 TAB; Start 09/27/18 at 03:00 Pantoprazole (Protonix Iv) 40 mg BID@06,18 IV Last administered on 10/02/18 05:07; Admin Dose 40 MG; Start 09/27/18 at 18:00 Nitroglycerin (Nitroglycerin (Sl Tab) 0.4 Mg) 1 tab Q5M PRN SL ANGINA Last administered on 09/28/18 06:05; Admin Dose 1 TAB; Start 09/28/18 at 03:30 Ipratropium [place] (Atrovent Hfa) 2 puff QID RESP THERAPY PRN INH SHORTNESS OF BREATH; Start 09/28/18 at 04:00 Levalbuterol (Xopenex Neb) 1.25 mg Q4H RESP THERAPY PRN HHN SHORTNESS OF BREATH; Start 09/28/18 at 04:00 Ascorbic Acid (Vitamin C) 500 mg BID PO Last administered on 10/02/18 08:10; Admin Dose 500 MG; Start 09/28/18 at 21:00; Stop 10/28/18 at 20:59 Sucralfate (Carafate Susp) 1 gm QID GTB Last administered on 10/02/18at 12:32; Admin Dose 1 GM; Start 09/28/18 at 13:00; Stop 10/12/18 at 12:59 Isosorbide Mononitrate (Imdur) 60 mg DAILY PO Last administered on 10/02/18 08:10; Admin Dose 60 MG; Start 09/28/18 at 15:00 Aspirin (Aspirin) 81 mg DAILY PO Last administered on 10/02/18at 08:09; Admin Dose 81 MG; Start 09/30/18 at 09:00 Zolpidem Tartrate (Ambien) 5 mg HS PRN PO INSOMNIA Last administered on 10/01/18at 23:01; Admin Dose 5 MG; Start 09/30/18 at 00:00 Epoetin Jero-epbx (Retacrit) 6,000 unit MoWeFr@1700 SC Last administered on 10/01/18at 17:50; Admin Dose 6,000 UNIT; Start 10/01/18 at 17:00 DENZEL MICHAELS NP October 02, 2018 13:45
[2018-10-02] MEDS: ATORVASTATIN 40 MG TAB PO SCH (21:19)
[2018-10-02] MEDS: ZOLPIDEM 5 MG TAB PO PRN (21:27)
[2018-10-02] MEDS: ACETAMINOPHEN 325 MG TAB PO PRN (21:27)
[2018-10-03] VITALS (17 sets, daily range): BP systolic 106–148; BP diastolic 57–74; PULSE 47–97; RESP 19–20
[2018-10-03] MEDS: BALSAM PERU/CASTOR OIL 60 GM TUBE TOP SCH ×4 (01:29→20:32)
[2018-10-03] MEDS: INSULIN ASPART [NOVOLOG] 3 ML PEN SC SCH ×5 (01:38→18:23)
[2018-10-03] MEDS: ACCU-CHEK XX SCH (02:00)
[2018-10-03] MEDS: PANTOPRAZOLE 40 MG INJ IV SCH (06:07)
[2018-10-03] MEDS: FUROSEMIDE 40 MG TAB PO SCH ×2 (06:10→18:04)
--- NOTE | 2018-10-03 10:13 | PN ---
Date/Time of Note Date/Time of Note DATE: 10/03/18 TIME: 10:09 Assessment/Plan VTE Prophylaxis Risk score (from [facility]0 risk: 3 SCD applied (from [facility]): Yes Pharmacological prophylaxis: NA/contraindicated Pharm contraindication: anticoag not tolerated Lines/Catheters [facility]from [facility] Saline Lock Urinary Cath still in place: No Assessment/Plan Hospital Course SUBJECTIVE: no reported GI bleed.having issues w/Left av fistula today.. OBJECTIVE: Vital signs-see below PHYSICAL EXAM: Constitutional: Adequately built,not in acute distress. HEENT: Head atraumatic and normocephalic. Eyes: Extraocular muscles intact. Anicteric sclerae. Pupils equal bilaterally, reactive to light. NECK: Supple without lymph node. CHEST: Slight wheezing on right upper lobe. HEART: S1, S2. Regular rate and rhythm. ABDOMEN: Soft/non tender with no rebound tenderness. Bowel sounds were present. EXTREMITIES:BLE 2+edema (improved) w/no palpable DP pulses. 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 NEUROLOGIC: Alert and oriented x3. No focal deficit. No sensory deficit. PSYCHOSOCIAL: No signs of depression. INTEGUMENTARY: left foot 3rd toe chronic dry gangrene. ASSESSMENT AND PLAN:67 yo with numerous comorbidities including dyslipidemia,dmII,ESRD/HD and severe PVD who is also anticoagulated on Eliquis/Plavix,here with worsening malaise, found to have severe anemia/positive stool OB... also had NSTEMI NSTEMI/Multivessel coronary artery disease s/p [facility] 09/30 -Recommended CABG-times/scheduling pending GI clearance/ulcer healing -Cont antiplatelet/statin-Not a candidate for BB 2/2 HB -f/u cards/cv recs. Severe acute symptomatic blood loss anemia -Improved with multiple transfusion. -Continue iron replacement Upper GI bleed -s/p EGD showed anastomotic ulcer (hx billroth II) -On PPI/Carafate -Repeat OB negative.. Mobitz type I heart block -Stable -Avoid BB/AV jesus agents. 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 -on Trental for pain -Wound care Obesity with BMI 36.3 -Weight reduction advised. Anemia of ESRD -on Epogen with hemodialysis. DVT prophylaxis: SCDs PUD prophylaxis: Protonix Disposition: patient is recommended to have CABG. in light of GI bleed/anastomotic ulcer, timing/scheduling per GI team in conjunction with cardiovascular surgery. Patient is medically stable to be downgraded to a telemetry floor. Continue with dialysis, monitor volume status closely. Patient was seen in collaboration with Dr. Beltran. Result Diagram: 10/03/1851610/03/18516 Results 24hrs Laboratory Tests Test 10/02/18 11:48 10/02/18 15:30 10/02/18 17:37 10/02/18 21:30 Bedside Glucose 141 176 218 Stool Occult Blood NEGATIVE Test 10/03/18 01:23 10/03/18 05:17 10/03/18 06:06 Bedside Glucose 149 138 White Blood Count 9.4 Red Blood Count 3.64 L Hemoglobin 10.5 L Hematocrit 32.8 L Mean Corpuscular 90.1 Volume Mean Corpuscular 28.8 L Hemoglobin Mean Corpuscular 32.0 Hemoglobin Concent Red Cell Distribution 15.5 H Width Platelet Count 343 Mean Platelet Volume 10.3 Immature Granulocytes 0.500 H % Neutrophils % 65.0 Lymphocytes % 16.3 Monocytes % 11.8 H Eosinophils % 5.2 Basophils % 1.2 Nucleated Red Blood 0.0 Cells % Immature Granulocytes 0.050 H # Neutrophils # 6.1 Lymphocytes # 1.5 Monocytes # 1.1 H Eosinophils # 0.5 Basophils # 0.1 Nucleated Red Blood 0.0 Cells # Sodium Level 138 Potassium Level 3.7 Chloride Level 98 Carbon Dioxide Level 28 Anion Gap 12 Blood Urea Nitrogen 28 H Creatinine 6.90 H Est Glomerular 8 L Filtrat Rate mL/min Glucose Level 140 Calcium Level 8.9 Exam/Review of Systems Exam Vitals Vital Signs Date Temp Pulse Resp B/P (MAP) Pulse Ox O2 O2 Flow FiO2 Time Delivery Rate 10/03/18 88 08:42 10/03/18 98.2 20 132/74 96 07:54 (93) 10/03/18 Room Air 06:45 09/29/18 4.0 09:10 Intake and Output 10/02/18 10/02/18 10/03/18 1515:00 23:00 07:00 IntakeIntake Total 370 ml 200 ml 200 ml OutputOutput Total 2900 ml 50 ml 0 ml BalanceBalance -2530 ml 150 ml 200 ml Results Results 24hrs Laboratory Tests Test 10/02/18 11:48 10/02/18 15:30 10/02/18 17:37 10/02/18 21:30 Bedside Glucose 141 176 218 Stool Occult Blood NEGATIVE Test 10/03/18 01:23 10/03/18 05:17 10/03/18 06:06 Bedside Glucose 149 138 White Blood Count 9.4 Red Blood Count 3.64 L Hemoglobin 10.5 L Hematocrit 32.8 L Mean Corpuscular 90.1 Volume Mean Corpuscular 28.8 L Hemoglobin Mean Corpuscular 32.0 Hemoglobin Concent Red Cell Distribution 15.5 H Width Platelet Count 343 Mean Platelet Volume 10.3 Immature Granulocytes 0.500 H % Neutrophils % 65.0 Lymphocytes % 16.3 Monocytes % 11.8 H Eosinophils % 5.2 Basophils % 1.2 Nucleated Red Blood 0.0 Cells % Immature Granulocytes 0.050 H # Neutrophils # 6.1 Lymphocytes # 1.5 Monocytes # 1.1 H Eosinophils # 0.5 Basophils # 0.1 Nucleated Red Blood 0.0 Cells # Sodium Level 138 Potassium Level 3.7 Chloride Level 98 Carbon Dioxide Level 28 Anion Gap 12 Blood Urea Nitrogen 28 H Creatinine 6.90 H Est Glomerular 8 L Filtrat Rate mL/min Glucose Level 140 Calcium Level 8.9 Medications Medication Current Medications EZETIMIBE (Zetia) 10 mg DAILY PO Last administered on 10/02/18at 08:09; Admin Dose 10 MG; Start 09/25/18 at 09:00 Folic Acid (Folic Acid) 1 mg DAILY PO Last administered on 10/02/18at 08:10; Admin Dose 1 MG; Start 09/25/18 at 09:00 Multivit/Ca Carb/ B Cmplx/FA/Prenat (Isabel-Brenda) 1 tab DAILY PO Last administered on 10/02/18at 08:10; Admin Dose 1 TAB; Start 09/25/18 at 09:00 Sevelamer Carbonate (Renvela) 0.8 gm WITH MEALS PO Last administered on 10/02/18 17:35; Admin Dose 0.8 GM; Start 09/24/18 at 17:55 IV Flush (NS 3 ml) 3 ml PER PROTOCOL IV ; Start 09/24/18 at 12:30 Ondansetron HCl (Zofran Tab) 4 mg Q6H PRN PO NAUSEA/VOMITING Last administered on 10/01/18 21:14; Admin Dose 4 MG; Start 09/24/18 at 12:30 Acetaminophen (Tylenol Tab) 650 mg Q6H PRN PO .PAIN 1-3 OR TEMP Last administered on 10/02/18 21:27; Admin Dose 650 MG; Start 09/24/18 at 12:30 Diagnostic Test (Pha) (Accu-Chek) 1 ea 02 XX Last administered on 10/01/18 02:04; Admin Dose 1 EA; Start 09/25/18 at 02:00 Insulin Glargine (Lantus) 31 units DAILY@0800 SC Last administered on 10/02/18 08:06; Admin Dose 31 UNITS; Start 09/24/18 at 12:30 Insulin Aspart (Novolog Insulin Pen) NOVOLOG *MILD* ALGORI... Q4 SC Last administered on 10/03/18at 01:38; Admin Dose 1 UNIT; Start 09/24/18 at 13:00 Miscellaneous Information 1 ea NOTE XX ; Start 09/24/18 at 13:30 Glucose (Glutose) 15 gm Q15M PRN PO DECREASED GLUCOSE; Start 09/24/18 at 13:30 Glucose (Glutose) 22.5 gm Q15M PRN PO DECREASED GLUCOSE; Start 09/24/18 at 13:30 Dextrose (D50w Syringe) 25 ml Q15M PRN IV DECREASED GLUCOSE; Start 09/24/18 at 13:30 Dextrose (D50w Syringe) 50 ml Q15M PRN IV DECREASED GLUCOSE; Start 09/24/18 at 13:30 Glucagon (Glucagen) 1 mg Q15M PRN IM DECREASED GLUCOSE; Start 09/24/18 at 13:30 Glucose (Glutose) 15 gm Q15M PRN BUCCAL DECREASED GLUCOSE; Start 09/24/18 at 13:30 Albumin Human 100 ml @ 100 mls/hr WITH DIALYSIS PRN IV SBP <90 DURING DIALYSIS; Start 09/24/18 at 18:30 Sodium Chloride (NS) -To prime the dialy... DIRECTED FOR HD PRN IV HD; Start 09/24/18 at 18:30 Atorvastatin Calcium (Lipitor) 40 mg HS PO Last administered on 10/02/18 21:19; Admin Dose 40 MG; Start 09/25/18 at 21:00 Pentoxifylline (Trental) 400 mg DAILY PO Last administered on 10/02/18 08:10; Admin Dose 400 MG; Start 09/27/18 at 09:00 Docusate Sodium/ Ferrous Fumarate (Les-Sequels) 1 tab BID PO Last administered on 10/02/18 23:42; Admin Dose 1 TAB; Start 09/27/18 at 21:00; Stop 10/27/18 at 20:59 Furosemide (Lasix) 40 mg BID DIURETICS PO Last administered on 10/03/18 06:10; Admin Dose 40 MG; Start 09/26/18 at 18:00 Acetaminophen/ Hydrocodone Bitart ([place] (5/325)) 1 tab Q4H PRN PO PAIN LEVEL 1-5; Start 09/27/18 at 03:00 Acetaminophen/ Hydrocodone Bitart ([place] (5/325)) 2 tab Q4H PRN PO PAIN LEVEL 6-10 Last administered on 09/30/18 19:25; Admin Dose 2 TAB; Start 09/27/18 at 03:00 Pantoprazole (Protonix Iv) 40 mg BID@06,18 IV Last administered on 10/03/18 06:07; Admin Dose 40 MG; Start 09/27/18 at 18:00 Nitroglycerin (Nitroglycerin (Sl Tab) 0.4 Mg) 1 tab Q5M PRN SL ANGINA Last administered on 09/28/18 06:05; Admin Dose 1 TAB; Start 09/28/18 at 03:30 Ipratropium [place] (Atrovent Hfa) 2 puff QID RESP THERAPY PRN INH SHORTNESS OF BREATH; Start 09/28/18 at 04:00 Levalbuterol (Xopenex Neb) 1.25 mg Q4H RESP THERAPY PRN HHN SHORTNESS OF BREATH; Start 09/28/18 at 04:00 Ascorbic Acid (Vitamin C) 500 mg BID PO Last administered on 10/02/18at 21:20; Admin Dose 500 MG; Start 09/28/18 at 21:00; Stop 10/28/18 at 20:59 Sucralfate (Carafate Susp) 1 gm QID GTB Last administered on 10/02/18at 21:19; Admin Dose 1 GM; Start 09/28/18 at 13:00; Stop 10/12/18 at 12:59 Isosorbide Mononitrate (Imdur) 60 mg DAILY PO Last administered on 10/02/18 08:10; Admin Dose 60 MG; Start 09/28/18 at 15:00 Aspirin (Aspirin) 81 mg DAILY PO Last administered on 10/02/18at 08:09; Admin Dose 81 MG; Start 09/30/18 at 09:00 Zolpidem Tartrate (Ambien) 5 mg HS PRN PO INSOMNIA Last administered on 10/02/18at 21:27; Admin Dose 5 MG; Start 09/30/18 at 00:00 Epoetin Jero-epbx (Retacrit) 6,000 unit MoWeFr@1700 SC Last administered on 10/01/18at 17:50; Admin Dose 6,000 UNIT; Start 10/01/18 at 17:00 DENZEL MICHAELS NP October 03, 2018 10:13
[2018-10-03] MEDS: SEVELAMER CARBONATE 0.8 GM PKT PO SCH ×3 (10:32→18:02)
[2018-10-03] MEDS: SUCRALFATE (100 MG/ML) 10ML CUP GTB SCH ×4 (10:32→20:29)
[2018-10-03] MEDS: FOLIC ACID 1 MG TAB PO SCH (10:33)
[2018-10-03] MEDS: ASCORBIC ACID 500 MG TAB PO SCH ×2 (10:33→20:29)
[2018-10-03] MEDS: EZETIMIBE 10 MG TAB PO SCH (10:33)
[2018-10-03] MEDS: MULTIVIT/CA CARB/B CMPLX/FA TAB PO SCH (10:33)
[2018-10-03] MEDS: ASPIRIN 81 MG TAB PO SCH (10:33)
[2018-10-03] MEDS: FERROUS FUMARATE (SR) TAB PO SCH ×2 (10:34→20:30)
[2018-10-03] MEDS: INSULIN GLARGINE [LANTus] (100 UNITS/ML) SYG SC SCH ×2 (10:45→10:55)
--- NOTE | 2018-10-03 11:22 | CONS ---
Assessment/Plan Assessment/Plan Hospital Course (Demo Recall) NSTEMI: chest pain 09/28 3 am and none since. Trop peak 1.1 and trended down. S/p cath 09/30/18 with diffuse multivessel CAD best suitable for CABG for this diabetic pt. Seen by cardiac surgery. Plan is to wait a few days to let the ulcer heal before surgery Upper GI bleed: due to anastomotic ulcer seen on EGD 09/26. No bleeding since even on heparin drip. Black stools but on iron and stool occult negative. Hgb stable. Anemia: due to above. s/p 5 units PRBCs. Stable Wenckebach: [place] 1. Not on BB. No pauses or high grade block. 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 Now stopped DM ESRD on HD MWF HTN H/o Billroth -CABG likely Saturday -Dr. eMjia aware of possible fistula malfunction -ASA 81mg daily -continue imdur 60mg -lipitor 40mg -lasix 40mg PO BID -HD per nephrology Consultation Date/Type/Reason Admit Date/Time September 24, 2018 at 08:08 Initial Consult Date 09/24/18 Type of Consult Cardiology Requesting Provider: LAVON SEE Date/Time of Note DATE: 10/03/18 TIME: 11:19 24 HR Interval Summary Free Text/Dictation Black stools but on iron and stool occult negative. Hgb stable. HD fistula had some issues today so HD was not completed. Dr. Mejia aware. Otherwise no complaints Exam/Review of Systems Vital Signs Vitals Vital Signs Date Temp Pulse Resp B/P (MAP) Pulse Ox O2 O2 Flow FiO2 Time Delivery Rate 10/03/18 65 08:45 10/03/18 98.2 20 132/74 96 07:54 (93) 10/03/18 Room Air 06:45 09/29/18 4.0 09:10 Intake and Output 10/02/18 10/02/18 10/03/18 1515:00 23:00 07:00 IntakeIntake Total 370 ml 200 ml 200 ml OutputOutput Total 2900 ml 50 ml 0 ml BalanceBalance -2530 ml 150 ml 200 ml Exam Constitutional: alert, oriented Psych: no complaints, nl mood/affect Head: normocephalic, atraumatic Neck: supple; No jvd Respiratory: clear to auscultation; No crackles/rales Cardiovascular: regular rate and rhythm; No edema Gastrointestinal: soft, non-tender; No distended 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: nl mental status, nl speech Labs Result Diagram: 10/03/18 0517 10/03/1817 Results 24hrs Laboratory Tests Test 10/02/18 11:48 10/02/18 15:30 10/02/18 17:37 10/02/18 21:30 Bedside Glucose 141 176 218 Stool Occult Blood NEGATIVE Test 10/03/18 01:23 10/03/18 05:17 10/03/18 06:06 10/03/18 10:30 Bedside Glucose 149 138 142 White Blood Count 9.4 Red Blood Count 3.64 L Hemoglobin 10.5 L Hematocrit 32.8 L Mean Corpuscular 90.1 Volume Mean Corpuscular 28.8 L Hemoglobin Mean Corpuscular 32.0 Hemoglobin Concent Red Cell 15.5 H Distribution Width Platelet Count 343 Mean Platelet Volume 10.3 Immature 0.500 H Granulocytes % Neutrophils % 65.0 Lymphocytes % 16.3 Monocytes % 11.8 H Eosinophils % 5.2 Basophils % 1.2 Nucleated Red Blood 0.0 Cells % Immature 0.050 H Granulocytes # Neutrophils # 6.1 Lymphocytes # 1.5 Monocytes # 1.1 H Eosinophils # 0.5 Basophils # 0.1 Nucleated Red Blood 0.0 Cells # Sodium Level 138 Potassium Level 3.7 Chloride Level 98 Carbon Dioxide Level 28 Anion Gap 12 Blood Urea Nitrogen 28 H Creatinine 6.90 H Est Glomerular 8 L Filtrat Rate mL/min Glucose Level 140 Calcium Level 8.9 Medications Medications Current Medications EZETIMIBE (Zetia) 10 mg DAILY PO Last administered on 10/03/18 10:33; Admin Dose 10 MG; Start 09/25/18 at 09:00 Folic Acid (Folic Acid) 1 mg DAILY PO Last administered on 10/03/18 10:33; Admin Dose 1 MG; Start 09/25/18 at 09:00 Multivit/Ca Carb/ B Cmplx/FA/Prenat (Isabel-Brenda) 1 tab DAILY PO Last administered on 10/03/18 10:33; Admin Dose 1 TAB; Start 09/25/18 at 09:00 Sevelamer Carbonate (Renvela) 0.8 gm WITH MEALS PO Last administered on 10/03/18 10:32; Admin Dose 0.8 GM; Start 09/24/18 at 17:55 IV Flush (NS 3 ml) 3 ml PER PROTOCOL IV ; Start 09/24/18 at 12:30 Ondansetron HCl (Zofran Tab) 4 mg Q6H PRN PO NAUSEA/VOMITING Last administered on 10/01/18 21:14; Admin Dose 4 MG; Start 09/24/18 at 12:30 Acetaminophen (Tylenol Tab) 650 mg Q6H PRN PO .PAIN 1-3 OR TEMP Last administered on 10/02/18 21:27; Admin Dose 650 MG; Start 09/24/18 at 12:30 Diagnostic Test (Pha) (Accu-Chek) 1 ea 02 XX Last administered on 10/01/18 02:04; Admin Dose 1 EA; Start 09/25/18 at 02:00 Insulin Glargine (Lantus) 31 units DAILY@0800 SC Last administered on 10/03/18 10:55; Admin Dose 31 UNITS; Start 09/24/18 at 12:30 Insulin Aspart (Novolog Insulin Pen) NOVOLOG *MILD* ALGORI... Q4 SC Last administered on 10/03/18 10:56; Admin Dose 1 UNIT; Start 09/24/18 at 13:00 Miscellaneous Information 1 ea NOTE XX ; Start 09/24/18 at 13:30 Glucose (Glutose) 15 gm Q15M PRN PO DECREASED GLUCOSE; Start 09/24/18 at 13:30 Glucose (Glutose) 22.5 gm Q15M PRN PO DECREASED GLUCOSE; Start 09/24/18 at 13:30 Dextrose (D50w Syringe) 25 ml Q15M PRN IV DECREASED GLUCOSE; Start 09/24/18 at 13:30 Dextrose (D50w Syringe) 50 ml Q15M PRN IV DECREASED GLUCOSE; Start 09/24/18 at 13:30 Glucagon (Glucagen) 1 mg Q15M PRN IM DECREASED GLUCOSE; Start 09/24/18 at 13:30 Glucose (Glutose) 15 gm Q15M PRN BUCCAL DECREASED GLUCOSE; Start 09/24/18 at 13:30 Albumin Human 100 ml @ 100 mls/hr WITH DIALYSIS PRN IV SBP <90 DURING DIALYSIS; Start 09/24/18 at 18:30 Sodium Chloride (NS) -To prime the dialy... DIRECTED FOR HD PRN IV HD; Start 09/24/18 at 18:30 Atorvastatin Calcium (Lipitor) 40 mg HS PO Last administered on 10/02/18at 21:19; Admin Dose 40 MG; Start 09/25/18 at 21:00 Pentoxifylline (Trental) 400 mg DAILY PO Last administered on 10/02/18 08:10; Admin Dose 400 MG; Start 09/27/18 at 09:00 Docusate Sodium/ Ferrous Fumarate (Les-Sequels) 1 tab BID PO Last administered on 10/03/18at 10:34; Admin Dose 1 TAB; Start 09/27/18 at 21:00; Stop 10/27/18 at 20:59 Furosemide (Lasix) 40 mg BID DIURETICS PO Last administered on 10/03/18at 06:10; Admin Dose 40 MG; Start 09/26/18 at 18:00 Acetaminophen/ Hydrocodone Bitart ([place] (5/325)) 1 tab Q4H PRN PO PAIN LEVEL 1-5; Start 09/27/18 at 03:00 Acetaminophen/ Hydrocodone Bitart ([place] (5/325)) 2 tab Q4H PRN PO PAIN LEVEL 6-10 Last administered on 09/30/18 19:25; Admin Dose 2 TAB; Start 09/27/18 at 03:00 Pantoprazole (Protonix Iv) 40 mg BID@06,18 IV Last administered on 10/03/18 06:07; Admin Dose 40 MG; Start 09/27/18 at 18:00 Nitroglycerin (Nitroglycerin (Sl Tab) 0.4 Mg) 1 tab Q5M PRN SL ANGINA Last administered on 09/28/18 06:05; Admin Dose 1 TAB; Start 09/28/18 at 03:30 Ipratropium [place] (Atrovent Hfa) 2 puff QID RESP THERAPY PRN INH SHORTNESS OF BREATH; Start 09/28/18 at 04:00 Levalbuterol (Xopenex Neb) 1.25 mg Q4H RESP THERAPY PRN HHN SHORTNESS OF BREATH; Start 09/28/18 at 04:00 Ascorbic Acid (Vitamin C) 500 mg BID PO Last administered on 10/03/18 10:33; Admin Dose 500 MG; Start 09/28/18 at 21:00; Stop 10/28/18 at 20:59 Sucralfate (Carafate Susp) 1 gm QID GTB Last administered on 10/03/18at 10:32; Admin Dose 1 GM; Start 09/28/18 at 13:00; Stop 10/12/18 at 12:59 Isosorbide Mononitrate (Imdur) 60 mg DAILY PO Last administered on 10/02/18 0 8:10; Admin Dose 60 MG; Start 09/28/18 at 15:00 Aspirin (Aspirin) 81 mg DAILY PO Last administered on 10/03/18 10:33; Admin Dose 81 MG; Start 09/30/18 at 09:00 Zolpidem Tartrate (Ambien) 5 mg HS PRN PO INSOMNIA Last administered on 10/02/18at 21:27; Admin Dose 5 MG; Start 09/30/18 at 00:00 Epoetin Jero-epbx (Retacrit) 6,000 unit MoWeFr@1700 SC Last administered on 10/01/18 17:50; Admin Dose 6,000 UNIT; Start 10/01/18 at 17:00 LAVON SEE October 03, 2018 11:22
[2018-10-03] MEDS: ISOSORBIDE MONONITRATE(SR)60 MG TAB PO SCH (12:37)
[2018-10-03] MEDS: PENTOXIFYLLINE (SR) 400 MG TAB PO SCH (12:37)
--- NOTE | 2018-10-03 13:10 | CONS ---
Assessment/Plan Assessment/Plan Assessment/Plan (Daily) 1. acute Hyperkalemia due to GI bleeding- resolved 2.Acute fluid overload with Uremia BUN 111 on admission 3. acute GI bleeding causing acute blood loss anemia 4. Severe Anemia with Hb 5.8 on admission 5. H/O HTN 6. H/O peripherla vascular disease 7. ESRD on HD 8. acute NSTEMI s/p LHC on 09/30/18 that showed 3 V CAD- recommended CABG, s/p Evaluation by CT surgeon Plan: s/p 5 units PRBC trnasfusion during this admission , Hb 11 , BP stable, S/p Status post EGD/colonoscopy 09/27/19 -Anastomosis ulcer -Normal colonoscopy s/p HD yesterday 2.5 L removed, -follow up at [facility] - [facility] scheduled HD on MWF- Today during HD it did not work well, Only 300 cc removed, D/w Dr. Rod figueroa, will plan for AVF US today will keep pt on HD scheduel on Saturday also Lasix 40mg pO BID - will follow up Consultation Date/Type/Reason Admit Date/Time September 24, 2018 at 08:08 Initial Consult Date 09/24/18 Type of Consult NEPHROLOGY Requesting Provider: LAVON SEE Date/Time of Note DATE: 10/03/18 TIME: 13:10 24 HR Interval Summary Free Text/Dictation Today during HD AVF did not work well, Only 300 cc removed, D/w Dr. Rod figueroa, will plan for AVF US today Exam/Review of Systems Exam Vitals Vital Signs Date Temp Pulse Resp B/P (MAP) Pulse Ox O2 O2 Flow FiO2 Time Delivery Rate 10/03/18 54 12:19 10/03/18 98.3 20 124/59 91 11:39 (80) 10/03/18 Room Air 06:45 09/29/18 4.0 09:10 Intake and Output 10/02/18 10/02/18 10/03/18 1414:59 22:59 06:59 IntakeIntake Total 370 ml 200 ml 200 ml OutputOutput Total 2900 ml 50 ml 0 ml BalanceBalance -2530 ml 150 ml 200 ml Exam Constitutional: Alert, awake no acute distress HEENT: [place] , Pale conjunctive, pale mucous membrane NECK: Supple without lymph node. CHEST: Slight wheezing on right upper lobe. HEART: S1, S2. Regular rate and rhythm. ABDOMEN: Soft/non tender with no rebound tenderness. Bowel sounds were present. EXTREMITIES: 3+edema on both LE NEUROLOGIC: Alert and oriented x3. No focal deficit. No sensory deficit. PSYCHOSOCIAL: No signs of depression. INTEGUMENTARY: left foot 3rd toe chronic ulcer. no oozing. Pale skin. Results Result Diagram: 10/03/1851610/03/18516 Results 24hrs Laboratory Tests Test 10/02/18 15:30 10/02/18 17:37 10/02/18 21:30 10/03/18 01:23 Stool Occult Blood NEGATIVE Bedside Glucose 176 218 149 Test 10/03/18 05:17 10/03/18 06:06 10/03/18 10:30 White Blood Count 9.4 Red Blood Count 3.64 L Hemoglobin 10.5 L Hematocrit 32.8 L Mean Corpuscular 90.1 Volume Mean Corpuscular 28.8 L Hemoglobin Mean Corpuscular 32.0 Hemoglobin Concent Red Cell 15.5 H Distribution Width Platelet Count 343 Mean Platelet Volume 10.3 Immature 0.500 H Granulocytes % Neutrophils % 65.0 Lymphocytes % 16.3 Monocytes % 11.8 H Eosinophils % 5.2 Basophils % 1.2 Nucleated Red Blood 0.0 Cells % Immature 0.050 H Granulocytes # Neutrophils # 6.1 Lymphocytes # 1.5 Monocytes # 1.1 H Eosinophils # 0.5 Basophils # 0.1 Nucleated Red Blood 0.0 Cells # Sodium Level 138 Potassium Level 3.7 Chloride Level 98 Carbon Dioxide Level 28 Anion Gap 12 Blood Urea Nitrogen 28 H Creatinine 6.90 H Est Glomerular 8 L Filtrat Rate mL/min Glucose Level 140 Calcium Level 8.9 Bedside Glucose 138 142 Medications Medication Current Medications EZETIMIBE (Zetia) 10 mg DAILY PO Last administered on 10/03/18at 10:33; Admin Dose 10 MG; Start 09/25/18 at 09:00 Folic Acid (Folic Acid) 1 mg DAILY PO Last administered on 10/03/18at 10:33; Admin Dose 1 MG; Start 09/25/18 at 09:00 Multivit/Ca Carb/ B Cmplx/FA/Prenat (Isabel-Brenda) 1 tab DAILY PO Last administered on 10/03/18 10:33; Admin Dose 1 TAB; Start 09/25/18 at 09:00 Sevelamer Carbonate (Renvela) 0.8 gm WITH MEALS PO Last administered on 10/03/18 10:32; Admin Dose 0.8 GM; Start 09/24/18 at 17:55 IV Flush (NS 3 ml) 3 ml PER PROTOCOL IV ; Start 09/24/18 at 12:30 Ondansetron HCl (Zofran Tab) 4 mg Q6H PRN PO NAUSEA/VOMITING Last administered on 10/01/18 21:14; Admin Dose 4 MG; Start 09/24/18 at 12:30 Acetaminophen (Tylenol Tab) 650 mg Q6H PRN PO .PAIN 1-3 OR TEMP Last administered on 10/02/18 21:27; Admin Dose 650 MG; Start 09/24/18 at 12:30 Diagnostic Test (Pha) (Accu-Chek) 1 ea 02 XX Last administered on 10/01/18 02:04; Admin Dose 1 EA; Start 09/25/18 at 02:00 Insulin Glargine (Lantus) 31 units DAILY@0800 SC Last administered on 10/03/18 10:55; Admin Dose 31 UNITS; Start 09/24/18 at 12:30 Miscellaneous Information 1 ea NOTE XX ; Start 09/24/18 at 13:30 Glucose (Glutose) 15 gm Q15M PRN PO DECREASED GLUCOSE; Start 09/24/18 at 13:30 Glucose (Glutose) 22.5 gm Q15M PRN PO DECREASED GLUCOSE; Start 09/24/18 at 13:30 Dextrose (D50w Syringe) 25 ml Q15M PRN IV DECREASED GLUCOSE; Start 09/24/18 at 13:30 Dextrose (D50w Syringe) 50 ml Q15M PRN IV DECREASED GLUCOSE; Start 09/24/18 at 13:30 Glucagon (Glucagen) 1 mg Q15M PRN IM DECREASED GLUCOSE; Start 09/24/18 at 13:30 Glucose (Glutose) 15 gm Q15M PRN BUCCAL DECREASED GLUCOSE; Start 09/24/18 at 13:30 Albumin Human 100 ml @ 100 mls/hr WITH DIALYSIS PRN IV SBP <90 DURING DIALYSIS; Start 09/24/18 at 18:30 Sodium Chloride (NS) -To prime the dialy... DIRECTED FOR HD PRN IV HD; Start 09/24/18 at 18:30 Atorvastatin Calcium (Lipitor) 40 mg HS PO Last administered on 10/02/18 21:19; Admin Dose 40 MG; Start 09/25/18 at 21:00 Pentoxifylline (Trental) 400 mg DAILY PO Last administered on 10/03/18 12:37; Admin Dose 400 MG; Start 09/27/18 at 09:00 Docusate Sodium/ Ferrous Fumarate (Les-Sequels) 1 tab BID PO Last administered on 10/03/18 10:34; Admin Dose 1 TAB; Start 09/27/18 at 21:00; Stop 10/27/18 at 20:59 Furosemide (Lasix) 40 mg BID DIURETICS PO Last administered on 10/03/18 06:10; Admin Dose 40 MG; Start 09/26/18 at 18:00 Acetaminophen/ Hydrocodone Bitart ([place] (5/325)) 1 tab Q4H PRN PO PAIN LEVEL 1-5; Start 09/27/18 at 03:00 Acetaminophen/ Hydrocodone Bitart ([place] (5/325)) 2 tab Q4H PRN PO PAIN LEVEL 6-10 Last administered on 09/30/18 19:25; Admin Dose 2 TAB; Start 09/27/18 at 03:00 Pantoprazole (Protonix Iv) 40 mg BID@06,18 IV Last administered on 10/03/18 06:07; Admin Dose 40 MG; Start 09/27/18 at 18:00 Nitroglycerin (Nitroglycerin (Sl Tab) 0.4 Mg) 1 tab Q5M PRN SL ANGINA Last administered on 09/28/18 06:05; Admin Dose 1 TAB; Start 09/28/18 at 03:30 Ipratropium [place] (Atrovent Hfa) 2 puff QID RESP THERAPY PRN INH SHORTNESS OF BREATH; Start 09/28/18 at 04:00 Levalbuterol (Xopenex Neb) 1.25 mg Q4H RESP THERAPY PRN HHN SHORTNESS OF BREATH; Start 09/28/18 at 04:00 Ascorbic Acid (Vitamin C) 500 mg BID PO Last administered on 10/03/18 10:33; Admin Dose 500 MG; Start 09/28/18 at 21:00; Stop 10/28/18 at 20:59 Sucralfate (Carafate Susp) 1 gm QID GTB Last administered on 10/03/18at 10:32; Admin Dose 1 GM; Start 09/28/18 at 13:00; Stop 10/12/18 at 12:59 Isosorbide Mononitrate (Imdur) 60 mg DAILY PO Last administered on 10/03/18at 12:37; Admin Dose 60 MG; Start 09/28/18 at 15:00 Aspirin (Aspirin) 81 mg DAILY PO Last administered on 10/03/18at 10:33; Admin Dose 81 MG; Start 09/30/18 at 09:00 Zolpidem Tartrate (Ambien) 5 mg HS PRN PO INSOMNIA Last administered on 10/02/18at 21:27; Admin Dose 5 MG; Start 09/30/18 at 00:00 Epoetin Jero-epbx (Retacrit) 6,000 unit MoWeFr@1700 SC Last administered on 10/01/18at 17:50; Admin Dose 6,000 UNIT; Start 10/01/18 at 17:00 Insulin Aspart (Novolog Insulin Pen) NOVOLOG *MILD* ALGORI... AC DINNER BEDTIME SC ; Start 10/03/18 at 12:00 RAQUEL MCDOWELL MD October 03, 2018 13:10
--- NOTE | 2018-10-03 13:47 | CONS ---
Consult Date/Type/Reason Admit Date/Time September 24, 2018 at 08:08 Initial Consult Date 10/01/18 Requesting Provider: LAVON SEE Date/Time of Note DATE: 10/03/18 TIME: 13:41 Subjective Patient seen bedside for left foot gangrenous toes. Patient GI bleed improved. However, given NSTEMI he needs to have open heart surgery. Objective Vitals Vital Signs Date Temp Pulse Resp B/P (MAP) Pulse Ox O2 O2 Flow FiO2 Time Delivery Rate 10/03/18 54 12:19 10/03/18 98.3 20 124/59 91 11:39 (80) 10/03/18 Room Air 06:45 09/29/18 4.0 09:10 Intake and Output 10/02/18 10/02/18 10/03/18 1414:59 22:59 06:59 IntakeIntake Total 370 ml 200 ml 200 ml OutputOutput Total 2900 ml 50 ml 0 ml BalanceBalance -2530 ml 150 ml 200 ml Exam Left foot hallux, 2nd digit and 3rd digit dry gangrene. No drainage noted, no edema or erythema of left foot. Results/Medications Result Diagram: 10/03/18 0510/03/18 0517 Results 24 hrs Laboratory Tests Test 10/02/18 15:30 10/02/18 17:37 10/02/18 21:30 10/03/18 01:23 Stool Occult Blood NEGATIVE Bedside Glucose 176 218 149 Test 10/03/18 05:17 10/03/18 06:06 10/03/18 10:30 White Blood Count 9.4 Red Blood Count 3.64 L Hemoglobin 10.5 L Hematocrit 32.8 L Mean Corpuscular 90.1 Volume Mean Corpuscular 28.8 L Hemoglobin Mean Corpuscular 32.0 Hemoglobin Concent Red Cell 15.5 H Distribution Width Platelet Count 343 Mean Platelet Volume 10.3 Immature 0.500 H Granulocytes % Neutrophils % 65.0 Lymphocytes % 16.3 Monocytes % 11.8 H Eosinophils % 5.2 Basophils % 1.2 Nucleated Red Blood 0.0 Cells % Immature 0.050 H Granulocytes # Neutrophils # 6.1 Lymphocytes # 1.5 Monocytes # 1.1 H Eosinophils # 0.5 Basophils # 0.1 Nucleated Red Blood 0.0 Cells # Sodium Level 138 Potassium Level 3.7 Chloride Level 98 Carbon Dioxide Level 28 Anion Gap 12 Blood Urea Nitrogen 28 H Creatinine 6.90 H Est Glomerular 8 L Filtrat Rate mL/min Glucose Level 140 Calcium Level 8.9 Bedside Glucose 138 142 Home Meds Reported Medications Clopidogrel Bisulfate (Clopidogrel) 75 Mg Tablet, 75 MG PO DAILY, #30 TAB 09/24/18 Ezetimibe* (Zetia*) 10 Mg Tablet, 10 MG PO DAILY, TAB 08/29/18 Insulin Lispro (Humalog Kwikpen U-100) 100 Unit/1 Ml Insuln.pen, 0 SQ SLIDING SCALE, EA 08/28/18 Insulin Glargine* (Lantus*) 100 Unit/Ml Soln, 0 SC QHS, #1 VIAL 45-52 UNITS 08/28/18 Metolazone* (Metolazone*) 5 Mg Tablet, 10 MG PO BID, TAB 08/28/18 Multivit/Ca Carb/B Cmplx/Fa* (Isabel-Brenda*) 1 Tab Tab, 1 TAB PO DAILY, TAB 08/28/18 Furosemide* (Furosemide*) 80 Mg Tablet, 160 MG PO BID, #60 TAB 08/28/18 Folic Acid* (Folic Acid*) 1 Mg Tablet, 1 MG PO DAILY, TAB 08/28/18 Apixaban* (Eliquis*) 5 Mg Tablet, 5 MG PO BID, TAB 08/28/18 Sevelamer Carbonate* (Renvela*) 800 Mg Tablet, 0.8 GM PO WITH MEALS, TAB 08/28/18 Medications Current Medications EZETIMIBE (Zetia) 10 mg DAILY PO Last administered on 10/03/18at 10:33; Admin Dose 10 MG; Start 09/25/18 at 09:00 Folic Acid (Folic Acid) 1 mg DAILY PO Last administered on 10/03/18 10:33; Admin Dose 1 MG; Start 09/25/18 at 09:00 Multivit/Ca Carb/ B Cmplx/FA/Prenat (Isabel-Brenda) 1 tab DAILY PO Last administered on 10/03/18at 10:33; Admin Dose 1 TAB; Start 09/25/18 at 09:00 Sevelamer Carbonate (Renvela) 0.8 gm WITH MEALS PO Last administered on 10/03/18at 10:32; Admin Dose 0.8 GM; Start 09/24/18 at 17:55 IV Flush (NS 3 ml) 3 ml PER PROTOCOL IV ; Start 09/24/18 at 12:30 Ondansetron HCl (Zofran Tab) 4 mg Q6H PRN PO NAUSEA/VOMITING Last administered on 10/01/18at 21:14; Admin Dose 4 MG; Start 09/24/18 at 12:30 Acetaminophen (Tylenol Tab) 650 mg Q6H PRN PO .PAIN 1-3 OR TEMP Last administered on 10/02/18at 21:27; Admin Dose 650 MG; Start 09/24/18 at 12:30 Diagnostic Test (Pha) (Accu-Chek) 1 ea 02 XX Last administered on 10/01/18 02:04; Admin Dose 1 EA; Start 09/25/18 at 02:00 Insulin Glargine (Lantus) 31 units DAILY@0800 SC Last administered on 10/03/18 10:55; Admin Dose 31 UNITS; Start 09/24/18 at 12:30 Miscellaneous Information 1 ea NOTE XX ; Start 09/24/18 at 13:30 Glucose (Glutose) 15 gm Q15M PRN PO DECREASED GLUCOSE; Start 09/24/18 at 13:30 Glucose (Glutose) 22.5 gm Q15M PRN PO DECREASED GLUCOSE; Start 09/24/18 at 13:30 Dextrose (D50w Syringe) 25 ml Q15M PRN IV DECREASED GLUCOSE; Start 09/24/18 at 13:30 Dextrose (D50w Syringe) 50 ml Q15M PRN IV DECREASED GLUCOSE; Start 09/24/18 at 13:30 Glucagon (Glucagen) 1 mg Q15M PRN IM DECREASED GLUCOSE; Start 09/24/18 at 13:30 Glucose (Glutose) 15 gm Q15M PRN BUCCAL DECREASED GLUCOSE; Start 09/24/18 at 13:30 Albumin Human 100 ml @ 100 mls/hr WITH DIALYSIS PRN IV SBP <90 DURING DIALYSIS; Start 09/24/18 at 18:30 Sodium Chloride (NS) -To prime the dialy... DIRECTED FOR HD PRN IV HD; Start 09/24/18 at 18:30 Atorvastatin Calcium (Lipitor) 40 mg HS PO Last administered on 10/02/18at 21:19; Admin Dose 40 MG; Start 09/25/18 at 21:00 Pentoxifylline (Trental) 400 mg DAILY PO Last administered on 10/03/18 12:37; Admin Dose 400 MG; Start 09/27/18 at 09:00 Docusate Sodium/ Ferrous Fumarate (Les-Sequels) 1 tab BID PO Last administered on 10/03/18 10:34; Admin Dose 1 TAB; Start 09/27/18 at 21:00; Stop 10/27/18 at 20:59 Furosemide (Lasix) 40 mg BID DIURETICS PO Last administered on 10/03/18 06:10; Admin Dose 40 MG; Start 09/26/18 at 18:00 Acetaminophen/ Hydrocodone Bitart ([place] (5/325)) 1 tab Q4H PRN PO PAIN LEVEL 1-5; Start 09/27/18 at 03:00 Acetaminophen/ Hydrocodone Bitart ([place] (5/325)) 2 tab Q4H PRN PO PAIN LEVEL 6-10 Last administered on 09/30/18 19:25; Admin Dose 2 TAB; Start 09/27/18 at 03:00 Pantoprazole (Protonix Iv) 40 mg BID@,18 IV Last administered on 10/03/18 06:07; Admin Dose 40 MG; Start 09/27/18 at 18:00 Nitroglycerin (Nitroglycerin (Sl Tab) 0.4 Mg) 1 tab Q5M PRN SL ANGINA Last administered on 09/28/18 06:05; Admin Dose 1 TAB; Start 09/28/18 at 03:30 Ipratropium [place] (Atrovent Hfa) 2 puff QID RESP THERAPY PRN INH SHORTNESS OF BREATH; Start 09/28/18 at 04:00 Levalbuterol (Xopenex Neb) 1.25 mg Q4H RESP THERAPY PRN HHN SHORTNESS OF BREATH; Start 09/28/18 at 04:00 Ascorbic Acid (Vitamin C) 500 mg BID PO Last administered on 10/03/18 10:33; Admin Dose 500 MG; Start 09/28/18 at 21:00; Stop 10/28/18 at 20:59 Sucralfate (Carafate Susp) 1 gm QID GTB Last administered on 10/03/18 13:27; Admin Dose 1 GM; Start 09/28/18 at 13:00; Stop 10/12/18 at 12:59 Isosorbide Mononitrate (Imdur) 60 mg DAILY PO Last administered on 10/03/18at 12:37; Admin Dose 60 MG; Start 09/28/18 at 15:00 Aspirin (Aspirin) 81 mg DAILY PO Last administered on 10/03/18at 10:33; Admin Dose 81 MG; Start 09/30/18 at 09:00 Zolpidem Tartrate (Ambien) 5 mg HS PRN PO INSOMNIA Last administered on 10/02/18at 21:27; Admin Dose 5 MG; Start 09/30/18 at 00:00 Epoetin Jero-epbx (Retacrit) 6,000 unit MoWeFr@1700 SC Last administered on 10/01/18at 17:50; Admin Dose 6,000 UNIT; Start 10/01/18 at 17:00 Insulin Aspart (Novolog Insulin Pen) NOVOLOG *MILD* ALGORI... AC DINNER BEDTIME SC ; Start 10/03/18 at 12:00 Assessment/Plan Assessment/Plan (Daily) 67 yo male with PVD and stable left foot gangrenous digits. -Patient's left foot gangrenous digits dry and stable -continue with betadine dressing changes recommended. -will continue to follow patient. PUSHPA WALL DPM October 03, 2018 13:47
--- NOTE | 2018-10-03 15:33 | PN ---
Date/Time of Note Date/Time of Note DATE: 10/03/18 TIME: 15:31 Assessment/Plan VTE Prophylaxis Risk score (from Ns)>0 risk: 3 SCD applied (from Ns): No SCD contraindicated: low risk/ambulating Pharmacological prophylaxis: NA/contraindicated Pharm contraindication: bleeding Lines/Catheters [facility] Saline Lock Urinary Cath still in place: No Assessment/Plan Assessment/Plan Assessment: Severe acute on chronic anemia Status post EGD 09/26/2018 -Anastomosis ulcer Status post Colonoscopy 09/26/18 Scattered diverticula No red blood noted no active bleeding, Black particulate matter- likely melanotic Rectal polyp removed Biopsy shows rectal polyp is compatible with diminutive inflammatory polyp no adenoma is identified Melena- resolved ESRD on HD DM Bilateral lower 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 Cardoza Subjective: One episode of dark stool noted yesterday, no bowel movements today. Hemoglobin is trending up. Currently receiving dialysis. Patient denies abdominal pain, nausea or vomiting. Tolerating diet well. With no further recommendations GI will sign off and will be available to reconsult upon request. PHYSICAL EXAMINATION: GENERAL: Alert & oriented x 3, in no acute distress SKIN: No lesions EYES: Pupils equal reactive to light, no discharge. EARS/NOSE AND THROAT: Ears normal, nose normal. NECK: Supple, no masses CARDIOVASCULAR: Heart: Regular rate and rhythm, RESPIRATORY: Lungs clear to auscultation GASTROINTESTINAL AND LIVER: Abdomen: Soft, non tenderness, normoactive bowel sounds. Rectal: Deferred. GENITOURINARY: [Male genitalia within normal limits. EXTREMITIES: No cyanosis, clubbing or edema. Result Diagram: 10/03/1851610/03/18516 Results 24hrs Laboratory Tests Test 10/02/18 17:37 10/02/18 21:30 10/03/18 01:23 10/03/18 05:17 Bedside Glucose 176 218 149 White Blood Count 9.4 Red Blood Count 3.64 L Hemoglobin 10.5 L Hematocrit 32.8 L Mean Corpuscular 90.1 Volume Mean Corpuscular 28.8 L Hemoglobin Mean Corpuscular 32.0 Hemoglobin Concent Red Cell 15.5 H Distribution Width Platelet Count 343 Mean Platelet Volume 10.3 Immature 0.500 H Granulocytes % Neutrophils % 65.0 Lymphocytes % 16.3 Monocytes % 11.8 H Eosinophils % 5.2 Basophils % 1.2 Nucleated Red Blood 0.0 Cells % Immature 0.050 H Granulocytes # Neutrophils # 6.1 Lymphocytes # 1.5 Monocytes # 1.1 H Eosinophils # 0.5 Basophils # 0.1 Nucleated Red Blood 0.0 Cells # Sodium Level 138 Potassium Level 3.7 Chloride Level 98 Carbon Dioxide Level 28 Anion Gap 12 Blood Urea Nitrogen 28 H Creatinine 6.90 H Est Glomerular 8 L Filtrat Rate mL/min Glucose Level 140 Calcium Level 8.9 Test 10/03/18 06:06 10/03/18 10:30 Bedside Glucose 138 142 Exam/Review of Systems Exam Vitals Vital Signs Date Temp Pulse Resp B/P (MAP) Pulse Ox O2 O2 Flow FiO2 Time Delivery Rate 10/03/18 54 12:19 10/03/18 98.3 20 124/59 91 11:39 (80) 10/03/18 Room Air 06:45 09/29/18 4.0 09:10 Intake and Output 10/02/18 10/02/18 10/03/18 1515:00 23:00 07:00 IntakeIntake Total 370 ml 200 ml 200 ml OutputOutput Total 2900 ml 50 ml 0 ml BalanceBalance -2530 ml 150 ml 200 ml Results Results 24hrs Laboratory Tests Test 10/02/18 17:37 10/02/18 21:30 10/03/18 01:23 10/03/18 05:17 Bedside Glucose 176 218 149 White Blood Count 9.4 Red Blood Count 3.64 L Hemoglobin 10.5 L Hematocrit 32.8 L Mean Corpuscular 90.1 Volume Mean Corpuscular 28.8 L Hemoglobin Mean Corpuscular 32.0 Hemoglobin Concent Red Cell 15.5 H Distribution Width Platelet Count 343 Mean Platelet Volume 10.3 Immature 0.500 H Granulocytes % Neutrophils % 65.0 Lymphocytes % 16.3 Monocytes % 11.8 H Eosinophils % 5.2 Basophils % 1.2 Nucleated Red Blood 0.0 Cells % Immature 0.050 H Granulocytes # Neutrophils # 6.1 Lymphocytes # 1.5 Monocytes # 1.1 H Eosinophils # 0.5 Basophils # 0.1 Nucleated Red Blood 0.0 Cells # Sodium Level 138 Potassium Level 3.7 Chloride Level 98 Carbon Dioxide Level 28 Anion Gap 12 Blood Urea Nitrogen 28 H Creatinine 6.90 H Est Glomerular 8 L Filtrat Rate mL/min Glucose Level 140 Calcium Level 8.9 Test 10/03/18 06:06 10/03/18 10:30 Bedside Glucose 138 142 Medications Medication Current Medications EZETIMIBE (Zetia) 10 mg DAILY PO Last administered on 10/03/18 10:33; Admin Dose 10 MG; Start 09/25/18 at 09:00 Folic Acid (Folic Acid) 1 mg DAILY PO Last administered on 10/03/18 10:33; Admin Dose 1 MG; Start 09/25/18 at 09:00 Multivit/Ca Carb/ B Cmplx/FA/Prenat (Isabel-Brenda) 1 tab DAILY PO Last administered on 10/03/18 10:33; Admin Dose 1 TAB; Start 09/25/18 at 09:00 Sevelamer Carbonate (Renvela) 0.8 gm WITH MEALS PO Last administered on 10/03/18 10:32; Admin Dose 0.8 GM; Start 09/24/18 at 17:55 IV Flush (NS 3 ml) 3 ml PER PROTOCOL IV ; Start 09/24/18 at 12:30 Ondansetron HCl (Zofran Tab) 4 mg Q6H PRN PO NAUSEA/VOMITING Last administered on 10/01/18 21:14; Admin Dose 4 MG; Start 09/24/18 at 12:30 Acetaminophen (Tylenol Tab) 650 mg Q6H PRN PO .PAIN 1-3 OR TEMP Last administered on 10/02/18 21:27; Admin Dose 650 MG; Start 09/24/18 at 12:30 Diagnostic Test (Pha) (Accu-Chek) 1 ea 02 XX Last administered on 10/01/18 02 :04; Admin Dose 1 EA; Start 09/25/18 at 02:00 Insulin Glargine (Lantus) 31 units DAILY@0800 SC Last administered on 10/03/18 10:55; Admin Dose 31 UNITS; Start 09/24/18 at 12:30 Miscellaneous Information 1 ea NOTE XX ; Start 09/24/18 at 13:30 Glucose (Glutose) 15 gm Q15M PRN PO DECREASED GLUCOSE; Start 09/24/18 at 13:30 Glucose (Glutose) 22.5 gm Q15M PRN PO DECREASED GLUCOSE; Start 09/24/18 at 13:30 Dextrose (D50w Syringe) 25 ml Q15M PRN IV DECREASED GLUCOSE; Start 09/24/18 at 13:30 Dextrose (D50w Syringe) 50 ml Q15M PRN IV DECREASED GLUCOSE; Start 09/24/18 at 13:30 Glucagon (Glucagen) 1 mg Q15M PRN IM DECREASED GLUCOSE; Start 09/24/18 at 13:30 Glucose (Glutose) 15 gm Q15M PRN BUCCAL DECREASED GLUCOSE; Start 09/24/18 at 13:30 Albumin Human 100 ml @ 100 mls/hr WITH DIALYSIS PRN IV SBP <90 DURING DIALYSIS; Start 09/24/18 at 18:30 Sodium Chloride (NS) -To prime the dialy... DIRECTED FOR HD PRN IV HD; Start 09/24/18 at 18:30 Atorvastatin Calcium (Lipitor) 40 mg HS PO Last administered on 10/02/18at 21:19; Admin Dose 40 MG; Start 09/25/18 at 21:00 Pentoxifylline (Trental) 400 mg DAILY PO Last administered on 10/03/18at 12:37; Admin Dose 400 MG; Start 09/27/18 at 09:00 Docusate Sodium/ Ferrous Fumarate (Les-Sequels) 1 tab BID PO Last administered on 10/03/18at 10:34; Admin Dose 1 TAB; Start 09/27/18 at 21:00; Stop 10/27/18 at 20:59 Furosemide (Lasix) 40 mg BID DIURETICS PO Last administered on 10/03/18 06:10; Admin Dose 40 MG; Start 09/26/18 at 18:00 Acetaminophen/ Hydrocodone Bitart ([place] (5/325)) 1 tab Q4H PRN PO PAIN LEVEL 1-5; Start 09/27/18 at 03:00 Acetaminophen/ Hydrocodone Bitart ([place] (5/325)) 2 tab Q4H PRN PO PAIN LEVEL 6-10 Last administered on 09/30/18at 19:25; Admin Dose 2 TAB; Start 09/27/18 at 03:00 Pantoprazole (Protonix Iv) 40 mg BID@06,18 IV Last administered on 10/03/18 06:07; Admin Dose 40 MG; Start 09/27/18 at 18:00 Nitroglycerin (Nitroglycerin (Sl Tab) 0.4 Mg) 1 tab Q5M PRN SL ANGINA Last administered on 09/28/18 06:05; Admin Dose 1 TAB; Start 09/28/18 at 03:30 Ipratropium [place] (Atrovent Hfa) 2 puff QID RESP THERAPY PRN INH SHORTNESS OF BREATH; Start 09/28/18 at 04:00 Levalbuterol (Xopenex Neb) 1.25 mg Q4H RESP THERAPY PRN HHN SHORTNESS OF B REATH; Start 09/28/18 at 04:00 Ascorbic Acid (Vitamin C) 500 mg BID PO Last administered on 10/03/18 10:33; Admin Dose 500 MG; Start 09/28/18 at 21:00; Stop 10/28/18 at 20:59 Sucralfate (Carafate Susp) 1 gm QID GTB Last administered on 10/03/18 13:27; Admin Dose 1 GM; Start 09/28/18 at 13:00; Stop 10/12/18 at 12:59 Isosorbide Mononitrate (Imdur) 60 mg DAILY PO Last administered on 10/03/18 12:37; Admin Dose 60 MG; Start 09/28/18 at 15:00 Aspirin (Aspirin) 81 mg DAILY PO Last administered on 10/03/18 10:33; Admin Dose 81 MG; Start 09/30/18 at 09:00 Zolpidem Tartrate (Ambien) 5 mg HS PRN PO INSOMNIA Last administered on 10/02/18 21:27; Admin Dose 5 MG; Start 09/30/18 at 00:00 Epoetin Jero-epbx (Retacrit) 6,000 unit MoWeFr@1700 SC Last administered on 10/01/18 17:50; Admin Dose 6,000 UNIT; Start 10/01/18 at 17:00 Insulin Aspart (Novolog Insulin Pen) NOVOLOG *MILD* ALGORI... AC DINNER BEDTIME SC ; Start 10/03/18 at 12:00 JOSE CARMEN NP October 03, 2018 15:33
[2018-10-03] MEDS: GUAIFENESIN/DM 5ML CUP PO PRN (18:02)
[2018-10-03] MEDS: PANTOPRAZOLE (EC) 40 MG TAB PO SCH (18:02)
[2018-10-03] MEDS: EPOETIN ALFA-EPBX (ESRD) 3,000 UNIT/ML VIAL SC SCH (18:06)
[2018-10-03] MEDS: ATORVASTATIN 40 MG TAB PO SCH (20:30)
[2018-10-03] MEDS: Insulin NOVOLOG SS MILD Algorithm (SS with meals and bedtime) SC SCH (20:32)
[2018-10-03] MEDS: ZOLPIDEM 5 MG TAB PO PRN (23:04)
[2018-10-04] VITALS (14 sets, daily range): BP systolic 106–130; BP diastolic 51–66; PULSE 40–90; RESP 19–22
[2018-10-04] MEDS: ACCU-CHEK XX SCH (02:00)
[2018-10-04] MEDS: PANTOPRAZOLE (EC) 40 MG TAB PO SCH ×2 (05:46→17:09)
[2018-10-04] MEDS: FUROSEMIDE 40 MG TAB PO SCH ×2 (05:46→17:10)
[2018-10-04] MEDS: Insulin NOVOLOG SS MILD Algorithm (SS with meals and bedtime) SC SCH ×4 (07:49→20:58)
[2018-10-04] MEDS: SEVELAMER CARBONATE 0.8 GM PKT PO SCH ×3 (08:19→17:09)
[2018-10-04] MEDS: SUCRALFATE (100 MG/ML) 10ML CUP GTB SCH ×4 (08:20→20:20)
[2018-10-04] MEDS: FERROUS FUMARATE (SR) TAB PO SCH ×2 (08:20→20:20)
[2018-10-04] MEDS: FOLIC ACID 1 MG TAB PO SCH (08:21)
[2018-10-04] MEDS: ISOSORBIDE MONONITRATE(SR)60 MG TAB PO SCH (08:21)
[2018-10-04] MEDS: MULTIVIT/CA CARB/B CMPLX/FA TAB PO SCH (08:21)
[2018-10-04] MEDS: ASCORBIC ACID 500 MG TAB PO SCH ×2 (08:21→20:20)
[2018-10-04] MEDS: ASPIRIN 81 MG TAB PO SCH (08:21)
[2018-10-04] MEDS: EZETIMIBE 10 MG TAB PO SCH (08:22)
[2018-10-04] MEDS: PENTOXIFYLLINE (SR) 400 MG TAB PO SCH (08:22)
[2018-10-04] MEDS: BALSAM PERU/CASTOR OIL 60 GM TUBE TOP SCH ×2 (08:22→20:58)
[2018-10-04] MEDS: GUAIFENESIN/DM 5ML CUP PO PRN ×2 (09:29→13:54)
--- NOTE | 2018-10-04 11:55 | PN ---
Date/Time of Note Date/Time of Note DATE: 10/04/18 TIME: 11:51 Assessment/Plan VTE Prophylaxis Risk score (from [facility])>0 risk: 5 SCD applied (from [facility]): No SCD contraindicated: bilateral LE trauma Pharmacological prophylaxis: heparin Lines/Catheters IV [facility] Saline Lock Urinary Cath still in place: No Assessment/Plan Problems: (1) Non-STEMI (non-ST elevated myocardial infarction) Status: Acute Comment: Stable without any active cardiac symptoms. Cardiology is recommended for open heart bypass surgery given the severe nature of his diffuse coronary disease. Cardiac surgery has seen the patient and I's believe that the plan is for him to have surgery in the next 48 to 72 hours. Please note that the GI status fortunately has remained stable (2) Coronary artery disease Status: Chronic Comment: As above Qualifiers: Coronary Disease-Associated Artery/Lesion type: cahto artery [place] vs. transplanted heart: cahto heart Associated angina: without angina Qualified Codes: I25.10 - Atherosclerotic heart disease of cahto coronary artery without angina pectoris (3) Diastolic dysfunction Status: Chronic Comment: Attained blood pressure control (4) Essential hypertension Status: Chronic Comment: Pressure has adequate control (5) Type 2 diabetes mellitus with polyneuropathy Status: Chronic Comment: His blood sugars are bouncing around and we will try and adjust his medicines to get his smoother. When he comes out from the open heart bypass he should be on an insulin drip while in the ICU (6) End stage renal disease on dialysis due to type 2 diabetes mellitus Status: Chronic Comment: As per nephrology (7) Hyperlipidemia associated with type 2 diabetes mellitus Status: Chronic Comment: On full dose statin therapy (8) Gangrene of toe of left foot Status: Acute Comment: This will need to be addressed after the open heart bypass has been completed successfully (9) Hepatitis C antibody positive in blood Status: Chronic Comment: Noted. Blood and body fluid precautions (10) Hyperuricemia Status: Chronic Comment: Stable at this time (11) Peptic anastomotic ulcer Status: Acute Comment: Fortunately no further bleeding. Continues on full dose proton pump inhibitor therapy and Carafate (12) Acute upper GI bleed Status: Acute Comment: Fortunately quiescent Result Diagram: 10/04/18 0515 10/04/18 0515 Results 24hrs Laboratory Tests Test 10/03/18 18:00 10/03/18 20:27 10/04/18 02:22 10/04/18 05:15 Bedside Glucose 218 233 H 200 White Blood Count 9.2 Red Blood Count 3.33 L Hemoglobin 9.7 L Hematocrit 30.3 L Mean Corpuscular 91.0 Volume Mean Corpuscular 29.1 Hemoglobin Mean Corpuscular 32.0 Hemoglobin Concent Red Cell 15.6 H Distribution Width Platelet Count 368 Mean Platelet Volume 10.7 H Immature 0.700 H Granulocytes % Neutrophils % 62.1 Lymphocytes % 19.0 Monocytes % 10.7 Eosinophils % 6.2 Basophils % 1.3 Nucleated Red Blood 0.0 Cells % Immature 0.060 H Granulocytes # Neutrophils # 5.7 Lymphocytes # 1.8 Monocytes # 1.0 H Eosinophils # 0.6 H Basophils # 0.1 Nucleated Red Blood 0.0 Cells # Sodium Level 139 Potassium Level 3.7 Chloride Level 99 Carbon Dioxide Level 26 Anion Gap 14 H Blood Urea Nitrogen 38 H Creatinine 8.05 H Est Glomerular 7 L Filtrat Rate mL/min Glucose Level 129 Calcium Level 8.7 Test 10/04/18 07:45 Bedside Glucose 153 Subjective 24 Hr Interval Summary Free Text/Dictation Patient reports no fevers chills or sweats, no chest pain etc. Constitutional: no complaints Respiratory: no complaints Cardiovascular: no complaints Gastrointestinal: no complaints Genitourinary: no complaints Musculoskeletal: other (Left foot distal pain) Neurologic: no complaints Endocrine: no complaints Exam/Review of Systems Exam Vitals Vital Signs Date Temp Pulse Resp B/P (MAP) Pulse Ox O2 O2 Flow FiO2 Time Delivery Rate 10/04/18 97.8 90 20 119/60 100 Room Air 11:30 (79) Intake and Output 10/03/18 10/03/18 10/04/18 1515:00 23:00 07:00 IntakeIntake Total 450 ml 300 ml OutputOutput Total 1200 ml 2 ml 0 ml BalanceBalance -1200 ml 448 ml 300 ml Constitutional: alert, oriented Respiratory: clear to auscultation, normal air movement Cardiovascular: regular rate and rhythm, nl pulses Gastrointestinal: soft, nl liver, spleen, non-tender Results Results 24hrs Laboratory Tests Test 10/03/18 18:00 10/03/18 20:27 10/04/18 02:22 10/04/18 05:15 Bedside Glucose 218 233 H 200 White Blood Count 9.2 Red Blood Count 3.33 L Hemoglobin 9.7 L Hematocrit 30.3 L Mean Corpuscular 91.0 Volume Mean Corpuscular 29.1 Hemoglobin Mean Corpuscular 32.0 Hemoglobin Concent Red Cell 15.6 H Distribution Width Platelet Count 368 Mean Platelet Volume 10.7 H Immature 0.700 H Granulocytes % Neutrophils % 62.1 Lymphocytes % 19.0 Monocytes % 10.7 Eosinophils % 6.2 Basophils % 1.3 Nucleated Red Blood 0.0 Cells % Immature 0.060 H Granulocytes # Neutrophils # 5.7 Lymphocytes # 1.8 Monocytes # 1.0 H Eosinophils # 0.6 H Basophils # 0.1 Nucleated Red Blood 0.0 Cells # Sodium Level 139 Potassium Level 3.7 Chloride Level 99 Carbon Dioxide Level 26 Anion Gap 14 H Blood Urea Nitrogen 38 H Creatinine 8.05 H Est Glomerular 7 L Filtrat Rate mL/min Glucose Level 129 Calcium Level 8.7 Test 10/04/18 07:45 Bedside Glucose 153 Medications Medication Current Medications EZETIMIBE (Zetia) 10 mg DAILY PO Last administered on 10/04/18 08:22; Admin Dose 10 MG; Start 09/25/18 at 09:00 Folic Acid (Folic Acid) 1 mg DAILY PO Last administered on 10/04/18 08:21; Admin Dose 1 MG; Start 09/25/18 at 09:00 Multivit/Ca Carb/ B Cmplx/FA/Prenat (Isabel-Brenda) 1 tab DAILY PO Last administered on 10/04/18 08:21; Admin Dose 1 TAB; Start 09/25/18 at 09:00 Sevelamer Carbonate (Renvela) 0.8 gm WITH MEALS PO Last administered on 10/04/18 08:19; Admin Dose 0.8 GM; Start 09/24/18 at 17:55 IV Flush (NS 3 ml) 3 ml PER PROTOCOL IV ; Start 09/24/18 at 12:30 Ondansetron HCl (Zofran Tab) 4 mg Q6H PRN PO NAUSEA/VOMITING Last administered on 10/01/18 21:14; Admin Dose 4 MG; Start 09/24/18 at 12:30 Acetaminophen (Tylenol Tab) 650 mg Q6H PRN PO .PAIN 1-3 OR TEMP Last administered on 5/9/19at 21:27; Admin Dose 650 MG; Start 09/24/18 at 12:30 Diagnostic Test (Pha) (Accu-Chek) 1 ea 02 XX Last administered on 10/01/18at 02:04; Admin Dose 1 EA; Start 09/25/18 at 02:00 Insulin Glargine (Lantus) 31 units DAILY@0800 SC Last administered on 10/03/18at 10:55; Admin Dose 31 UNITS; Start 09/24/18 at 12:30 Miscellaneous Information 1 ea NOTE XX ; Start 09/24/18 at 13:30 Glucose (Glutose) 15 gm Q15M PRN PO DECREASED GLUCOSE; Start 09/24/18 at 13:30 Glucose (Glutose) 22.5 gm Q15M PRN PO DECREASED GLUCOSE; Start 09/24/18 at 13:30 Dextrose (D50w Syringe) 25 ml Q15M PRN IV DECREASED GLUCOSE; Start 09/24/18 at 13:30 Dextrose (D50w Syringe) 50 ml Q15M PRN IV DECREASED GLUCOSE; Start 09/24/18 at 13:30 Glucagon (Glucagen) 1 mg Q15M PRN IM DECREASED GLUCOSE; Start 09/24/18 at 13:30 Glucose (Glutose) 15 gm Q15M PRN BUCCAL DECREASED GLUCOSE; Start 09/24/18 at 13:30 Albumin Human 100 ml @ 100 mls/hr WITH DIALYSIS PRN IV SBP <90 DURING DIALYSIS; Start 09/24/18 at 18:30 Sodium Chloride (NS) -To prime the dialy... DIRECTED FOR HD PRN IV HD; Start 09/24/18 at 18:30 Atorvastatin Calcium (Lipitor) 40 mg HS PO Last administered on 10/03/18at 20:30; Admin Dose 40 MG; Start 09/25/18 at 21:00 Pentoxifylline (Trental) 400 mg DAILY PO Last administered on 10/04/18at 08:22; Admin Dose 400 MG; Start 09/27/18 at 09:00 Docusate Sodium/ Ferrous Fumarate (Les-Sequels) 1 tab BID PO Last administered on 10/04/18at 08:20; Admin Dose 1 TAB; Start 09/27/18 at 21:00; Stop 10/27/18 at 20:59 Furosemide (Lasix) 40 mg BID DIURETICS PO Last administered on 10/04/18 05:46; Admin Dose 40 MG; Start 09/26/18 at 18:00 Acetaminophen/ Hydrocodone Bitart ([place] (5/325)) 1 tab Q4H PRN PO PAIN LEVEL 1-5; Start 09/27/18 at 03:00 Acetaminophen/ Hydrocodone Bitart ([place] (5/325)) 2 tab Q4H PRN PO PAIN LEVEL 6-10 Last administered on 09/30/18 19:25; Admin Dose 2 TAB; Start 09/27/18 at 03:00 Nitroglycerin (Nitroglycerin (Sl Tab) 0.4 Mg) 1 tab Q5M PRN SL ANGINA Last administered on 09/28/18 06:05; Admin Dose 1 TAB; Start 09/28/18 at 03:30 Ipratropium [place] (Atrovent Hfa) 2 puff QID RESP THERAPY PRN INH SHORTNESS OF BREATH; Start 09/28/18 at 04:00 Levalbuterol (Xopenex Neb) 1.25 mg Q4H RESP THERAPY PRN HHN SHORTNESS OF BREATH; Start 09/28/18 at 04:00 Ascorbic Acid (Vitamin C) 500 mg BID PO Last administered on 10/04/18 08:21; Admin Dose 500 MG; Start 09/28/18 at 21:00; Stop 10/28/18 at 20:59 Sucralfate (Carafate Susp) 1 gm QID GTB Last administered on 10/04/18 08:20; Admin Dose 1 GM; Start 09/28/18 at 13:00; Stop 10/12/18 at 12:59 Isosorbide Mononitrate (Imdur) 60 mg DAILY PO Last administered on 10/04/18 08:21; Admin Dose 60 MG; Start 09/28/18 at 15:00 Aspirin (Aspirin) 81 mg DAILY PO Last administered on 10/04/18 08:21; Admin Dose 81 MG; Start 09/30/18 at 09:00 Zolpidem Tartrate (Ambien) 5 mg HS PRN PO INSOMNIA Last administered on 10/03/18 23:04; Admin Dose 5 MG; Start 09/30/18 at 00:00 Epoetin Jero-epbx (Retacrit) 6,000 unit MoWeFr@1700 SC Last administered on 10/03/18 18:06; Admin Dose 6,000 UNIT; Start 10/01/18 at 17:00 Guaifenesin/ Dextromethorphan (Robitussin Dm Liquid Cup) 10 ml Q4H PRN PO COUGH Last administered on 10/04/18at 09:29; Admin Dose 10 ML; Start 10/03/18 at 17:00 Pantoprazole (Protonix Tab) 40 mg BID@0600,1800 PO Last administered on 10/04/18at 05:46; Admin Dose 40 MG; Start 10/03/18 at 18:00 Insulin Aspart (Novolog Insulin Pen) (Adult SC Insulin - Mild Algorithm)... AC MEALS AND BEDTIME SC Last administered on 10/04/18at 07:49; Admin Dose 1 UNIT; Start 10/03/18 at 21:00 MARA GRAYSON MD October 04, 2018 11:55
--- NOTE | 2018-10-04 13:19 | CONS ---
Assessment/Plan Assessment/Plan Assessment/Plan (Daily) 1. acute Hyperkalemia due to GI bleeding- resolved 2.Acute fluid overload with Uremia BUN 111 on admission 3. acute GI bleeding causing acute blood loss anemia 4. Severe Anemia with Hb 5.8 on admission 5. H/O HTN 6. H/O peripherla vascular disease 7. ESRD on HD 8. acute NSTEMI s/p LHC on 09/30/18 that showed 3 V CAD- recommended CABG, s/p Evaluation by CT surgeon Plan: s/p 5 units PRBC trnasfusion during this admission , Hb 11 , BP stable, S/p Status post EGD/colonoscopy 09/27/19 -Anastomosis ulcer -Normal colonoscopy s/p HD today 2.5 L removed, -follow up at [facility] [place] scheduled HD on MWF- next HD will be on Saturday Lasix 40mg pO BID - will follow up Consultation Date/Type/Reason Admit Date/Time September 24, 2018 at 08:08 Initial Consult Date 09/24/18 Type of Consult NEPHROLOGY Requesting Provider: LAVON SEE Date/Time of Note DATE: 10/04/18 TIME: 13:19 24 HR Interval Summary Free Text/Dictation s/p HD today 2.5 L removed, BP stable Exam/Review of Systems Exam Vitals Vital Signs Date Temp Pulse Resp B/P (MAP) Pulse Ox O2 O2 Flow FiO2 Time Delivery Rate 10/04/18 90 12:00 10/04/18 97.8 20 119/60 100 Room Air 11:30 (79) Intake and Output 10/03/18 10/03/18 10/04/18 1515:00 23:00 07:00 IntakeIntake Total 450 ml 300 ml OutputOutput Total 1200 ml 2 ml 0 ml BalanceBalance -1200 ml 448 ml 300 ml Results Result Diagram: 10/04/18 0515 10/04/18 0515 Results 24hrs Laboratory Tests Test 10/03/18 18:00 10/03/18 20:27 10/04/18 02:22 10/04/18 05:15 Bedside Glucose 218 233 H 200 White Blood Count 9.2 Red Blood Count 3.33 L Hemoglobin 9.7 L Hematocrit 30.3 L Mean Corpuscular 91.0 Volume Mean Corpuscular 29.1 Hemoglobin Mean Corpuscular 32.0 Hemoglobin Concent Red Cell 15.6 H Distribution Width Platelet Count 368 Mean Platelet Volume 10.7 H Immature 0.700 H Granulocytes % Neutrophils % 62.1 Lymphocytes % 19.0 Monocytes % 10.7 Eosinophils % 6.2 Basophils % 1.3 Nucleated Red Blood 0.0 Cells % Immature 0.060 H Granulocytes # Neutrophils # 5.7 Lymphocytes # 1.8 Monocytes # 1.0 H Eosinophils # 0.6 H Basophils # 0.1 Nucleated Red Blood 0.0 Cells # Sodium Level 139 Potassium Level 3.7 Chloride Level 99 Carbon Dioxide Level 26 Anion Gap 14 H Blood Urea Nitrogen 38 H Creatinine 8.05 H Est Glomerular 7 L Filtrat Rate mL/min Glucose Level 129 Calcium Level 8.7 Test 10/04/18 07:45 10/04/18 11:45 Bedside Glucose 153 340 H Medications Medication Current Medications EZETIMIBE (Zetia) 10 mg DAILY PO Last administered on 10/04/18 08:22; Admin Dose 10 MG; Start 09/25/18 at 09:00 Folic Acid (Folic Acid) 1 mg DAILY PO Last administered on 10/04/18 08:21; Admin Dose 1 MG; Start 09/25/18 at 09:00 Multivit/Ca Carb/ B Cmplx/FA/Prenat (Isabel-Brenda) 1 tab DAILY PO Last administered on 10/04/18 08:21; Admin Dose 1 TAB; Start 09/25/18 at 09:00 Sevelamer Carbonate (Renvela) 0.8 gm WITH MEALS PO Last administered on 10/04/18 11:54; Admin Dose 0.8 GM; Start 09/24/18 at 17:55 IV Flush (NS 3 ml) 3 ml PER PROTOCOL IV ; Start 09/24/18 at 12:30 Ondansetron HCl (Zofran Tab) 4 mg Q6H PRN PO NAUSEA/VOMITING Last administered on 10/01/18 21:14; Admin Dose 4 MG; Start 09/24/18 at 12:30 Acetaminophen (Tylenol Tab) 650 mg Q6H PRN PO .PAIN 1-3 OR TEMP Last administered on 10/02/18 21:27; Admin Dose 650 MG; Start 09/24/18 at 12:30 Diagnostic Test (Pha) (Accu-Chek) 1 ea 02 XX Last administered on 10/01/18at 02:04; Admin Dose 1 EA; Start 09/25/18 at 02:00 Insulin Glargine (Lantus) 31 units DAILY@0800 SC Last administered on 10/03/18at 10:55; Admin Dose 31 UNITS; Start 09/24/18 at 12:30 Miscellaneous Information 1 ea NOTE XX ; Start 09/24/18 at 13:30 Glucose (Glutose) 15 gm Q15M PRN PO DECREASED GLUCOSE; Start 09/24/18 at 13:30 Glucose (Glutose) 22.5 gm Q15M PRN PO DECREASED GLUCOSE; Start 09/24/18 at 13:30 Dextrose (D50w Syringe) 25 ml Q15M PRN IV DECREASED GLUCOSE; Start 09/24/18 at 13:30 Dextrose (D50w Syringe) 50 ml Q15M PRN IV DECREASED GLUCOSE; Start 09/24/18 at 13:30 Glucagon (Glucagen) 1 mg Q15M PRN IM DECREASED GLUCOSE; Start 09/24/18 at 13:30 Glucose (Glutose) 15 gm Q15M PRN BUCCAL DECREASED GLUCOSE; Start 09/24/18 at 13:30 Albumin Human 100 ml @ 100 mls/hr WITH DIALYSIS PRN IV SBP <90 DURING DIALYS IS; Start 09/24/18 at 18:30 Sodium Chloride (NS) -To prime the dialy... DIRECTED FOR HD PRN IV HD; Start 09/24/18 at 18:30 Atorvastatin Calcium (Lipitor) 40 mg HS PO Last administered on 10/03/18at 2 0:30; Admin Dose 40 MG; Start 09/25/18 at 21:00 Pentoxifylline (Trental) 400 mg DAILY PO Last administered on 10/04/18at 08:22; Admin Dose 400 MG; Start 09/27/18 at 09:00 Docusate Sodium/ Ferrous Fumarate (Les-Sequels) 1 tab BID PO Last administered on 10/04/18at 08:20; Admin Dose 1 TAB; Start 09/27/18 at 21:00; Stop 10/27/18 at 20:59 Furosemide (Lasix) 40 mg BID DIURETICS PO Last administered on 10/04/18at 05:46; Admin Dose 40 MG; Start 09/26/18 at 18:00 Acetaminophen/ Hydrocodone Bitart ([place] (5/325)) 1 tab Q4H PRN PO PAIN LEVEL 1-5; Start 09/27/18 at 03:00 Acetaminophen/ Hydrocodone Bitart ([place] (5/325)) 2 tab Q4H PRN PO PAIN LEVEL 6-10 Last administered on 09/30/18 19:25; Admin Dose 2 TAB; Start 09/27/18 at 03:00 Nitroglycerin (Nitroglycerin (Sl Tab) 0.4 Mg) 1 tab Q5M PRN SL ANGINA Last administered on 09/28/18 06:05; Admin Dose 1 TAB; Start 09/28/18 at 03:30 Ipratropium [place] (Atrovent Hfa) 2 puff QID RESP THERAPY PRN INH SHORTNESS OF BREATH; Start 09/28/18 at 04:00 Levalbuterol (Xopenex Neb) 1.25 mg Q4H RESP THERAPY PRN HHN SHORTNESS OF BREATH; Start 09/28/18 at 04:00 Ascorbic Acid (Vitamin C) 500 mg BID PO Last administered on 10/04/18 08:21; Admin Dose 500 MG; Start 09/28/18 at 21:00; Stop 10/28/18 at 20:59 Sucralfate (Carafate Susp) 1 gm QID GTB Last administered on 10/04/18 12:06; Admin Dose 1 GM; Start 09/28/18 at 13:00; Stop 10/12/18 at 12:59 Isosorbide Mononitrate (Imdur) 60 mg DAILY PO Last administered on 10/04/18 08:21; Admin Dose 60 MG; Start 09/28/18 at 15:00 Aspirin (Aspirin) 81 mg DAILY PO Last administered on 10/04/18 08:21; Admin Dose 81 MG; Start 09/30/18 at 09:00 Zolpidem Tartrate (Ambien) 5 mg HS PRN PO INSOMNIA Last administered on 10/03/18 23:04; Admin Dose 5 MG; Start 09/30/18 at 00:00 Epoetin Jero-epbx (Retacrit) 6,000 unit MoWeFr@1700 SC Last administered on 10/03/18 18:06; Admin Dose 6,000 UNIT; Start 10/01/18 at 17:00 Guaifenesin/ Dextromethorphan (Robitussin Dm Liquid Cup) 10 ml Q4H PRN PO COUGH Last administered on 10/04/18at 09:29; Admin Dose 10 ML; Start 10/03/18 at 17:00 Pantoprazole (Protonix Tab) 40 mg BID@0600,1800 PO Last administered on 10/04/18at 05:46; Admin Dose 40 MG; Start 10/03/18 at 18:00 Insulin Aspart (Novolog Insulin Pen) (Adult SC Insulin - Mild Algorithm)... AC MEALS AND BEDTIME SC Last administered on 10/04/18at 11:50; Admin Dose 5 UNIT; Start 10/03/18 at 21:00 RAQUEL MCDOWELL MD October 04, 2018 13:19
[2018-10-04] MEDS: ATORVASTATIN 40 MG TAB PO SCH (20:21)
[2018-10-04] MEDS ORDERED: ACCU-CHEK XX ONE (21:00)
[2018-10-04] MEDS ORDERED: INSULIN ASPART [NOVOLOG] 3 ML PEN SC ONE (21:00)
[2018-10-05] VITALS (24 sets, daily range): BP systolic 103–130; BP diastolic 42–70; PULSE 46–96; RESP 18–20
[2018-10-05] MEDS: ACCU-CHEK XX SCH (02:03)
[2018-10-05] MEDS: PANTOPRAZOLE (EC) 40 MG TAB PO SCH ×2 (06:15→17:55)
[2018-10-05] MEDS: FUROSEMIDE 40 MG TAB PO SCH ×2 (06:16→17:56)
[2018-10-05] MEDS: SEVELAMER CARBONATE 0.8 GM PKT PO SCH ×3 (07:33→17:55)
[2018-10-05] MEDS: GUAIFENESIN/DM 5ML CUP PO PRN ×2 (07:33→21:31)
[2018-10-05] MEDS: Insulin NOVOLOG SS MILD Algorithm (SS with meals and bedtime) SC SCH ×4 (07:39→21:41)
[2018-10-05] MEDS: INSULIN GLARGINE [LANTus] (100 UNITS/ML) SYG SC SCH (07:39)
--- NOTE | 2018-10-05 08:06 | CONS ---
Assessment/Plan Assessment/Plan Assessment/Plan (Daily) 1. acute Hyperkalemia due to GI bleeding- resolved 2.Acute fluid overload with Uremia BUN 111 on admission 3. acute GI bleeding causing acute blood loss anemia 4. Severe Anemia with Hb 5.8 on admission 5. H/O HTN 6. H/O peripherla vascular disease 7. ESRD on HD 8. acute NSTEMI s/p LHC on 09/30/18 that showed 3 V CAD- recommended CABG, s/p Evaluation by CT surgeon Plan: s/p 5 units PRBC trnasfusion during this admission , Hb 11 , BP stable, S/p Status post EGD/colonoscopy 09/27/19 -Anastomosis ulcer -Normal colonoscopy s/p HD yesterday 2.5 L removed, -follow up at [facility] scheduled HD on - HD ordered for Saturday Lasix 40mg pO BID - will follow up Consultation Date/Type/Reason Admit Date/Time September 24, 2018 at 08:08 Initial Consult Date 09/24/18 Type of Consult NEPHROLOGY Requesting Provider: LAVON SEE Date/Time of Note DATE: 10/05/18 TIME: 08:06 Exam/Review of Systems Exam Vitals Vital Signs Date Temp Pulse Resp B/P (MAP) Pulse Ox O2 O2 Flow FiO2 Time Delivery Rate 10/05/18 98.8 90 19 121/60 91 Room Air 06:46 (80) Intake and Output 10/04/18 10/04/18 10/05/18 1515:00 23:00 07:00 IntakeIntake Total 400 ml 350 ml OutputOutput Total 0 ml 2900 ml BalanceBalance 400 ml -2550 ml Results Result Diagram: 10/04/18 0515 10/04/18 0515 Results 24hrs Laboratory Tests Test 10/04/18 11:45 10/04/18 17:07 10/04/18 20:18 10/04/18 23:22 Bedside Glucose 340 H 307 H 354 H 282 H Test 10/05/18 01:54 10/05/18 07:32 Bedside Glucose 167 215 Medications Medication Current Medications EZETIMIBE (Zetia) 10 mg DAILY PO Last administered on 10/04/18at 08:22; Admin Dose 10 MG; Start 09/25/18 at 09:00 Folic Acid (Folic Acid) 1 mg DAILY PO Last administered on 10/04/18 08:21; Admin Dose 1 MG; Start 09/25/18 at 09:00 Multivit/Ca Carb/ B Cmplx/FA/Prenat (Isabel-Brenda) 1 tab DAILY PO Last admi nistered on 10/04/18 08:21; Admin Dose 1 TAB; Start 09/25/18 at 09:00 Sevelamer Carbonate (Renvela) 0.8 gm WITH MEALS PO Last administered on 10/05/18 07:33; Admin Dose 0.8 GM; Start 09/24/18 at 17:55 IV Flush (NS 3 ml) 3 ml PER PROTOCOL IV ; Start 09/24/18 at 12:30 Ondansetron HCl (Zofran Tab) 4 mg Q6H PRN PO NAUSEA/VOMITING Last administered on 10/01/18 21:14; Admin Dose 4 MG; Start 09/24/18 at 12:30 Acetaminophen (Tylenol Tab) 650 mg Q6H PRN PO .PAIN 1-3 OR TEMP Last administered on 10/02/18 21:27; Admin Dose 650 MG; Start 09/24/18 at 12:30 Diagnostic Test (Pha) (Accu-Chek) 1 ea 02 XX Last administered on 10/05/18 02:03; Admin Dose 1 EA; Start 09/25/18 at 02:00 Insulin Glargine (Lantus) 31 units DAILY@0800 SC Last administered on 10/05/18 07:39; Admin Dose 31 UNITS; Start 09/24/18 at 12:30 Miscellaneous Information 1 ea NOTE XX ; Start 09/24/18 at 13:30 Glucose (Glutose) 15 gm Q15M PRN PO DECREASED GLUCOSE; Start 09/24/18 at 13:30 Glucose (Glutose) 22.5 gm Q15M PRN PO DECREASED GLUCOSE; Start 09/24/18 at 13:30 Dextrose (D50w Syringe) 25 ml Q15M PRN IV DECREASED GLUCOSE; Start 09/24/18 at 13:30 Dextrose (D50w Syringe) 50 ml Q15M PRN IV DECREASED GLUCOSE; Start 09/24/18 at 13:30 Glucagon (Glucagen) 1 mg Q15M PRN IM DECREASED GLUCOSE; Start 09/24/18 at 13:30 Glucose (Glutose) 15 gm Q15M PRN BUCCAL DECREASED GLUCOSE; Start 09/24/18 at 13:30 Albumin Human 100 ml @ 100 mls/hr WITH DIALYSIS PRN IV SBP <90 DURING DIALYSIS; Start 09/24/18 at 18:30 Sodium Chloride (NS) -To prime the dialy... DIRECTED FOR HD PRN IV HD; Start 09/24/18 at 18:30 Atorvastatin Calcium (Lipitor) 40 mg HS PO Last administered on 10/04/18 20:21; Admin Dose 40 MG; Start 09/25/18 at 21:00 Pentoxifylline (Trental) 400 mg DAILY PO Last administered on 10/04/18 08:22; Admin Dose 400 MG; Start 09/27/18 at 09:00 Docusate Sodium/ Ferrous Fumarate (Les-Sequels) 1 tab BID PO Last administered on 10/04/18 20:20; Admin Dose 1 TAB; Start 09/27/18 at 21:00; Stop 10/27/18 at 20:59 Furosemide (Lasix) 40 mg BID DIURETICS PO Last administered on 10/05/18 06:16; Admin Dose 40 MG; Start 09/26/18 at 18:00 Acetaminophen/ Hydrocodone Bitart ([place] (5/325)) 1 tab Q4H PRN PO PAIN LEVEL 1-5; Start 09/27/18 at 03:00 Acetaminophen/ Hydrocodone Bitart ([place] (5/325)) 2 tab Q4H PRN PO PAIN LEVEL 6-10 Last administered on 09/30/18 19:25; Admin Dose 2 TAB; Start 09/27/18 at 03:00 Nitroglycerin (Nitroglycerin (Sl Tab) 0.4 Mg) 1 tab Q5M PRN SL ANGINA Last administered on 09/28/18 06:05; Admin Dose 1 TAB; Start 09/28/18 at 03:30 Ipratropium [place] (Atrovent Hfa) 2 puff QID RESP THERAPY PRN INH SHORTNESS OF BREATH; Start 09/28/18 at 04:00 Levalbuterol (Xopenex Neb) 1.25 mg Q4H RESP THERAPY PRN HHN SHORTNESS OF BREATH; Start 09/28/18 at 04:00 Ascorbic Acid (Vitamin C) 500 mg BID PO Last administered on 10/04/18 20:20; Admin Dose 500 MG; Start 09/28/18 at 21:00; Stop 10/28/18 at 20:59 Sucralfate (Carafate Susp) 1 gm QID GTB Last administered on 10/04/18 20:20; Admin Dose 1 GM; Start 09/28/18 at 13:00; Stop 10/12/18 at 12:59 Isosorbide Mononitrate (Imdur) 60 mg DAILY PO Last administered on 10/04/18 08:21; Admin Dose 60 MG; Start 09/28/18 at 15:00 Aspirin (Aspirin) 81 mg DAILY PO Last administered on 10/04/18 08:21; Admin Dose 81 MG; Start 09/30/18 at 09:00 Zolpidem Tartrate (Ambien) 5 mg HS PRN PO INSOMNIA Last administered on 10/03/18 23:04; Admin Dose 5 MG; Start 09/30/18 at 00:00 Epoetin Jero-epbx (Retacrit) 6,000 unit MoWeFr@1700 SC Last administered on 10/03/18 18:06; Admin Dose 6,000 UNIT; Start 10/01/18 at 17:00 Guaifenesin/ Dextromethorphan (Robitussin Dm Liquid Cup) 10 ml Q4H PRN PO COUGH Last administered on 10/05/18 07:33; Admin Dose 10 ML; Start 10/03/18 at 17:00 Pantoprazole (Protonix Tab) 40 mg BID@0600,1800 PO Last administered on 10/05/18 06:15; Admin Dose 40 MG; Start 10/03/18 at 18:00 Insulin Aspart (Novolog Insulin Pen) (Adult SC Insulin - Mild Algorithm)... AC MEALS AND BEDTIME SC Last administered on 10/05/18 07:39; Admin Dose 2 UNIT; Start 10/03/18 at 21:00 RAQUEL MCDOWELL MD October 05, 2018 08:06
[2018-10-05] MEDS: SUCRALFATE (100 MG/ML) 10ML CUP GTB SCH ×4 (08:32→21:33)
[2018-10-05] MEDS: ISOSORBIDE MONONITRATE(SR)60 MG TAB PO SCH (08:32)
[2018-10-05] MEDS: PENTOXIFYLLINE (SR) 400 MG TAB PO SCH (08:32)
[2018-10-05] MEDS: EZETIMIBE 10 MG TAB PO SCH (08:32)
[2018-10-05] MEDS: MULTIVIT/CA CARB/B CMPLX/FA TAB PO SCH (08:33)
[2018-10-05] MEDS: FERROUS FUMARATE (SR) TAB PO SCH ×2 (08:33→21:32)
[2018-10-05] MEDS: FOLIC ACID 1 MG TAB PO SCH (08:33)
[2018-10-05] MEDS: ASCORBIC ACID 500 MG TAB PO SCH ×2 (08:33→21:32)
[2018-10-05] MEDS: ASPIRIN 81 MG TAB PO SCH (08:33)
[2018-10-05] MEDS: BALSAM PERU/CASTOR OIL 60 GM TUBE TOP SCH ×2 (08:34→21:00)
--- NOTE | 2018-10-05 11:24 | PN ---
Date/Time of Note Date/Time of Note DATE: 10/05/18 TIME: 11:21 Assessment/Plan VTE Prophylaxis Risk score (from [facility] [place])>0 risk: 5 SCD applied (from [facility] [place]): No SCD contraindicated: low risk/ambulating Pharmacological prophylaxis: heparin Lines/Catheters IV [facility]from [facility] Saline Lock Urinary Cath still in place: No Assessment/Plan Problems: (1) Chronic kidney disease with end stage renal failure on dialysis Status: Chronic Comment: As per nephrology. Continue with treatment. (2) COPD (chronic obstructive pulmonary disease) Status: Chronic Comment: Adequate control. Qualifiers: COPD type: unspecified COPD Qualified Codes: J44.9 - Chronic obstructive pulmonary disease, unspecified (3) Hepatitis C antibody positive in blood Status: Chronic Comment: Noted, blood in body fluid precautions (4) Peptic anastomotic ulcer Status: Acute Comment: Continues with aggressive treatment with fortunately with no signs of rebleeding (5) Non-STEMI (non-ST elevated myocardial infarction) Status: Acute Comment: Stable. (6) Coronary artery disease Status: Chronic Comment: As per cardiology and cardiothoracic surgery. Stable to proceed Qualifiers: Coronary Disease-Associated Artery/Lesion type: koi artery [place] vs. transplanted heart: koi heart Associated angina: without angina Qualified Codes: I25.10 - Atherosclerotic heart disease of koi coronary artery without angina pectoris (7) Essential hypertension Status: Chronic Comment: Adequate control Result Diagram: 10/04/18 0515 10/04/18 0515 Results 24hrs Laboratory Tests Test 10/04/18 11:45 10/04/18 17:07 10/04/18 20:18 10/04/18 23:22 Bedside Glucose 340 H 307 H 354 H 282 H Test 10/05/18 01:54 10/05/18 07:32 Bedside Glucose 167 215 Subjective 24 Hr Interval Summary Free Text/Dictation Patient without cardiac symptoms or GI symptoms Constitutional: no complaints Respiratory: no complaints Cardiovascular: no complaints Gastrointestinal: no complaints Exam/Review of Systems Exam Vitals Vital Signs Date Temp Pulse Resp B/P (MAP) Pulse Ox O2 O2 Flow FiO2 Time Delivery Rate 10/05/18 93 08:00 10/05/18 98.8 19 121/60 91 Room Air 06:46 (80) Intake and Output 10/04/18 10/04/18 10/05/18 1515:00 23:00 07:00 IntakeIntake Total 400 ml 350 ml OutputOutput Total 0 ml 2900 ml BalanceBalance 400 ml -2550 ml Constitutional: alert, oriented Respiratory: clear to auscultation, normal air movement Cardiovascular: regular rate and rhythm, nl pulses Gastrointestinal: soft, nl liver, spleen, non-tender Results Results 24hrs Laboratory Tests Test 10/04/18 11:45 10/04/18 17:07 10/04/18 20:18 10/04/18 23:22 Bedside Glucose 340 H 307 H 354 H 282 H Test 10/05/18 01:54 10/05/18 07:32 Bedside Glucose 167 215 Medications Medication Current Medications EZETIMIBE (Zetia) 10 mg DAILY PO Last administered on 10/05/18 08:32; Admin Dose 10 MG; Start 09/25/18 at 09:00 Folic Acid (Folic Acid) 1 mg DAILY PO Last administered on 10/05/18 08:33; Admin Dose 1 MG; Start 09/25/18 at 09:00 Multivit/Ca Carb/ B Cmplx/FA/Prenat (Isabel-Brenda) 1 tab DAILY PO Last administered on 10/05/18 08:33; Admin Dose 1 TAB; Start 09/25/18 at 09:00 Sevelamer Carbonate (Renvela) 0.8 gm WITH MEALS PO Last administered on 9at 07:33; Admin Dose 0.8 GM; Start 09/24/18 at 17:55 IV Flush (NS 3 ml) 3 ml PER PROTOCOL IV ; Start 09/24/18 at 12:30 Ondansetron HCl (Zofran Tab) 4 mg Q6H PRN PO NAUSEA/VOMITING Last administered on 10/01/18 21:14; Admin Dose 4 MG; Start 09/24/18 at 12:30 Acetaminophen (Tylenol Tab) 650 mg Q6H PRN PO .PAIN 1-3 OR TEMP Last administered on 10/02/18 21:27; Admin Dose 650 MG; Start 09/24/18 at 12:30 Diagnostic Test (Pha) (Accu-Chek) 1 ea 02 XX Last administered on 10/05/18 02:03; Admin Dose 1 EA; Start 09/25/18 at 02:00 Insulin Glargine (Lantus) 31 units DAILY@0800 SC Last administered on 10/05/18at 07:39; Admin Dose 31 UNITS; Start 09/24/18 at 12:30 Miscellaneous Information 1 ea NOTE XX ; Start 09/24/18 at 13:30 Glucose (Glutose) 15 gm Q15M PRN PO DECREASED GLUCOSE; Start 09/24/18 at 13:30 Glucose (Glutose) 22.5 gm Q15M PRN PO DECREASED GLUCOSE; Start 09/24/18 at 13:30 Dextrose (D50w Syringe) 25 ml Q15M PRN IV DECREASED GLUCOSE; Start 09/24/18 at 13:30 Dextrose (D50w Syringe) 50 ml Q15M PRN IV DECREASED GLUCOSE; Start 09/24/18 at 13:30 Glucagon (Glucagen) 1 mg Q15M PRN IM DECREASED GLUCOSE; Start 09/24/18 at 13:30 Glucose (Glutose) 15 gm Q15M PRN BUCCAL DECREASED GLUCOSE; Start 09/24/18 at 13:30 Albumin Human 100 ml @ 100 mls/hr WITH DIALYSIS PRN IV SBP <90 DURING DIALYSIS; Start 09/24/18 at 18:30 Sodium Chloride (NS) -To prime the dialy... DIRECTED FOR HD PRN IV HD; Start 09/24/18 at 18:30 Atorvastatin Calcium (Lipitor) 40 mg HS PO Last administered on 10/04/18at 20:21; Admin Dose 40 MG; Start 09/25/18 at 21:00 Pentoxifylline (Trental) 400 mg DAILY PO Last administered on 10/05/18at 08:32; Admin Dose 400 MG; Start 09/27/18 at 09:00 Docusate Sodium/ Ferrous Fumarate (Les-Sequels) 1 tab BID PO Last administered on 10/05/18at 08:33; Admin Dose 1 TAB; Start 09/27/18 at 21:00; Stop 10/27/18 at 20:59 Furosemide (Lasix) 40 mg BID DIURETICS PO Last administered on 10/05/18at 06:16; Admin Dose 40 MG; Start 09/26/18 at 18:00 Acetaminophen/ Hydrocodone Bitart ([place] (5/325)) 1 tab Q4H PRN PO PAIN LEVEL 1-5; Start 09/27/18 at 03:00 Acetaminophen/ Hydrocodone Bitart ([place] (5/325)) 2 tab Q4H PRN PO PAIN LEVEL 6-10 Last administered on 09/30/18 19:25; Admin Dose 2 TAB; Start 09/27/18 at 03:00 Nitroglycerin (Nitroglycerin (Sl Tab) 0.4 Mg) 1 tab Q5M PRN SL ANGINA Last administered on 09/28/18 06:05; Admin Dose 1 TAB; Start 09/28/18 at 03:30 Ipratropium [place] (Atrovent Hfa) 2 puff QID RESP THERAPY PRN INH SHORTNESS OF BREATH; Start 09/28/18 at 04:00 Levalbuterol (Xopenex Neb) 1.25 mg Q4H RESP THERAPY PRN HHN SHORTNESS OF BREATH; Start 09/28/18 at 04:00 Ascorbic Acid (Vitamin C) 500 mg BID PO Last administered on 10/05/18 08:33; Admin Dose 500 MG; Start 09/28/18 at 21:00; Stop 10/28/18 at 20:59 Sucralfate (Carafate Susp) 1 gm QID GTB Last administered on 10/05/18 08:32; Admin Dose 1 GM; Start 09/28/18 at 13:00; Stop 10/12/18 at 12:59 Isosorbide Mononitrate (Imdur) 60 mg DAILY PO Last administered on 10/05/18 08:32; Admin Dose 60 MG; Start 09/28/18 at 15:00 Aspirin (Aspirin) 81 mg DAILY PO Last administered on 10/05/18 08:33; Admin Dose 81 MG; Start 09/30/18 at 09:00 Zolpidem Tartrate (Ambien) 5 mg HS PRN PO INSOMNIA Last administered on 10/03/18 23:04; Admin Dose 5 MG; Start 09/30/18 at 00:00 Epoetin Jero-epbx (Retacrit) 6,000 unit MoWeFr@1700 SC Last administered on 10/03/18 18:06; Admin Dose 6,000 UNIT; Start 10/01/18 at 17:00 Guaifenesin/ Dextromethorphan (Robitussin Dm Liquid Cup) 10 ml Q4H PRN PO COUGH Last administered on 5/12/19at 07:33; Admin Dose 10 ML; Start 10/03/18 at 17:00 Pantoprazole (Protonix Tab) 40 mg BID@0600,1800 PO Last administered on 10/05/18at 06:15; Admin Dose 40 MG; Start 10/03/18 at 18:00 Insulin Aspart (Novolog Insulin Pen) (Adult SC Insulin - Mild Algorithm)... AC MEALS AND BEDTIME SC Last administered on 10/05/18at 07:39; Admin Dose 2 UNIT; Start 10/03/18 at 21:00 Lactulose (Enulose) 20 gm ONCE ONCE PO ; Start 10/05/18 at 11:30; Stop 10/05/18 at 11:31; Status UNV Docusate Sodium (Colace) 250 mg ONCE ONCE PO ; Start 10/05/18 at 11:30; Stop 10/05/18 at 11:31; Status UNV MARA GRAYSON MD October 05, 2018 11:24
[2018-10-05] MEDS ORDERED: LACTULOSE 30ML CUP PO ONE (11:30)
[2018-10-05] MEDS ORDERED: DOCUSATE SODIUM 250 MG CAP PO ONE (11:30)
[2018-10-05] MEDS: ATORVASTATIN 40 MG TAB PO SCH (21:32)
[2018-10-06] VITALS (26 sets, daily range): BP systolic 99–127; BP diastolic 53–71; PULSE 50–99; RESP 18–20
[2018-10-06] MEDS: ACCU-CHEK XX SCH (02:45)
[2018-10-06] MEDS: FUROSEMIDE 40 MG TAB PO SCH ×2 (05:39→17:31)
[2018-10-06] MEDS: PANTOPRAZOLE (EC) 40 MG TAB PO SCH ×2 (05:39→17:30)
[2018-10-06] MEDS: GUAIFENESIN/DM 5ML CUP PO PRN ×2 (05:41→21:20)
--- NOTE | 2018-10-06 07:27 | PN ---
Date/Time of Note Date/Time of Note DATE: 10/06/18 TIME: 07:26 Assessment/Plan Lines/Catheters IV Catheter Type (from Nrs): Saline Lock [place] in Place (from Nrsg): No Assessment/Plan Assessment/Plan CABG tomorrow, discussed with patient. stop trental Exam/Review of Systems Vital Signs Vitals Vital Signs Date Temp Pulse Resp B/P (MAP) Pulse Ox O2 O2 Flow FiO2 Time Delivery Rate 10/06/18 50 04:00 10/06/18 97.9 19 116/57 93 03:53 (76) 10/05/18 Room Air 14:45 Intake and Output 10/05/18 10/05/18 10/06/18 1515:00 23:00 07:00 IntakeIntake Total 600 ml 300 ml BalanceBalance 600 ml 300 ml Results Result Diagram: 10/06/18 0525 10/06/18 0525 LESLIE WESTON MD October 06, 2018 07:27
[2018-10-06] MEDS ORDERED: CEFAZOLIN 2 GM/50 ML (PMX) 50 ML IVPB ONE (07:30)
[2018-10-06] MEDS: SEVELAMER CARBONATE 0.8 GM PKT PO SCH ×3 (07:47→17:30)
[2018-10-06] MEDS: Insulin NOVOLOG SS MILD Algorithm (SS with meals and bedtime) SC SCH ×4 (07:58→21:49)
[2018-10-06] MEDS: INSULIN GLARGINE [LANTus] (100 UNITS/ML) SYG SC SCH (07:58)
[2018-10-06] MEDS: FERROUS FUMARATE (SR) TAB PO SCH ×2 (09:00→14:20)
[2018-10-06] MEDS: ASCORBIC ACID 500 MG TAB PO SCH ×2 (09:00→14:21)
[2018-10-06] MEDS: SUCRALFATE (100 MG/ML) 10ML CUP GTB SCH ×4 (09:07→21:20)
[2018-10-06] MEDS: ASPIRIN 81 MG TAB PO SCH (09:07)
[2018-10-06] MEDS: ISOSORBIDE MONONITRATE(SR)60 MG TAB PO SCH (09:07)
[2018-10-06] MEDS: EZETIMIBE 10 MG TAB PO SCH (09:07)
[2018-10-06] MEDS: BALSAM PERU/CASTOR OIL 60 GM TUBE TOP SCH ×2 (09:08→21:21)
--- NOTE | 2018-10-06 09:43 | PN ---
Date/Time of Note Date/Time of Note DATE: 10/06/18 TIME: 09:41 Assessment/Plan VTE Prophylaxis Risk score (from [facility])>0 risk: 7 SCD applied (from [facility]): No SCD contraindicated: other Pharmacological prophylaxis: NA/contraindicated Pharm contraindication: bleeding Lines/Catheters IV Catheter Type (from [facility]): [place] Urinary Cath still in place: No Assessment/Plan Hospital Course SUBJECTIVE: no acute episodes. OBJECTIVE: Vital signs-see below PHYSICAL EXAM: Constitutional: Adequately built,not in acute distress. HEENT: Head atraumatic and normocephalic. Eyes: Extraocular muscles intact. Anicteric sclerae. Pupils equal bilaterally, reactive to light. NECK: Supple without lymph node. CHEST: Slight wheezing on right upper lobe. HEART: S1, S2. Regular rate and rhythm. ABDOMEN: Soft/non tender with no rebound tenderness. Bowel sounds were present. EXTREMITIES:BLE 2+edema (improved) w/no palpable DP pulses. 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 NEUROLOGIC: Alert and oriented x3. No focal deficit. No sensory deficit. PSYCHOSOCIAL: No signs of depression. INTEGUMENTARY: left foot 3rd toe chronic dry gangrene. ASSESSMENT AND PLAN:67 yo with numerous comorbidities including dyslipidemia,dmII,ESRD/HD and severe PVD who is also anticoagulated on Eliquis/Plavix,here with worsening malaise, found to have severe anemia/positive stool OB... also had NSTEMI NSTEMI/Multivessel coronary artery disease s/p [facility] 09/30 -for CABG in am -Cont antiplatelet/statin-Not a candidate for BB 2/2 HB -f/u cards/cv recs. Severe acute symptomatic blood loss anemia -Improved with multiple transfusion. -Continue iron Upper GI bleed -resolved -s/p EGD showed anastomotic ulcer (hx billroth II) -On PPI/Carafate [place] type I heart block -Stable -Avoid BB/AV jesus agents. 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 -Wound care Obesity with BMI 36.3 -Weight reduction advised. Anemia of ESRD -on Epogen with hemodialysis. DVT prophylaxis: SCDs PUD prophylaxis: Protonix Disposition: for cabg tomorrow. f/u cards/cv rcs post op. Patient was seen in collaboration with Dr. Beltran. Result Diagram: 10/06/1852410/06/18524 Results 24hrs Laboratory Tests Test 10/05/18 11:44 10/05/18 16:29 10/05/18 17:53 10/05/18 21:36 Bedside Glucose 339 H 360 H 386 H 261 H Test 10/06/18 02:33 10/06/18 05:25 10/06/18 07:41 Bedside Glucose 188 193 White Blood Count 10.7 Red Blood Count 3.38 L Hemoglobin 9.8 L Hematocrit 30.8 L Mean Corpuscular 91.1 Volume Mean Corpuscular 29.0 Hemoglobin Mean Corpuscular 31.8 L Hemoglobin Concent Red Cell 15.6 H Distribution Width Platelet Count 392 Mean Platelet Volume 10.4 Immature 0.800 H Granulocytes % Neutrophils % 63.1 Lymphocytes % 20.8 Monocytes % 9.8 Eosinophils % 4.3 Basophils % 1.2 Nucleated Red Blood 0.0 Cells % Immature 0.090 H Granulocytes # Neutrophils # 6.7 Lymphocytes # 2.2 Monocytes # 1.1 H Eosinophils # 0.5 Basophils # 0.1 Nucleated Red Blood 0.0 Cells # Prothrombin Time 14.0 Prothrombin Time 1.1 Ratio INR International 1.07 Normalized Ratio Activated 30.4 Partial Thromboplast Time Sodium Level 137 Potassium Level 4.0 Chloride Level 96 L Carbon Dioxide Level 25 Anion Gap 16 H Blood Urea Nitrogen 49 H Creatinine 8.38 H Est Glomerular 6 L Filtrat Rate mL/min Glucose Level 163 Calcium Level 8.8 Exam/Review of Systems Exam Vitals Vital Signs Date Temp Pulse Resp B/P (MAP) Pulse Ox O2 O2 Flow FiO2 Time Delivery Rate 10/06/18 Room Air 08:45 10/06/18 91 08:17 10/06/18 97.8 18 104/56 95 07:54 (72) Intake and Output 10/05/18 10/05/18 10/06/18 1515:00 23:00 07:00 IntakeIntake Total 600 ml 300 ml BalanceBalance 600 ml 300 ml Results Results 24hrs Laboratory Tests Test 10/05/18 11:44 10/05/18 16:29 10/05/18 17:53 10/05/18 21:36 Bedside Glucose 339 H 360 H 386 H 261 H Test 10/06/18 02:33 10/06/18 05:25 10/06/18 07:41 Bedside Glucose 188 193 White Blood Count 10.7 Red Blood Count 3.38 L Hemoglobin 9.8 L Hematocrit 30.8 L Mean Corpuscular 91.1 Volume Mean Corpuscular 29.0 Hemoglobin Mean Corpuscular 31.8 L Hemoglobin Concent Red Cell 15.6 H Distribution Width Platelet Count 392 Mean Platelet Volume 10.4 Immature 0.800 H Granulocytes % Neutrophils % 63.1 Lymphocytes % 20.8 Monocytes % 9.8 Eosinophils % 4.3 Basophils % 1.2 Nucleated Red Blood 0.0 Cells % Immature 0.090 H Granulocytes # Neutrophils # 6.7 Lymphocytes # 2.2 Monocytes # 1.1 H Eosinophils # 0.5 Basophils # 0.1 Nucleated Red Blood 0.0 Cells # Prothrombin Time 14.0 Prothrombin Time 1.1 Ratio INR International 1.07 Normalized Ratio Activated 30.4 Partial Thromboplast Time Sodium Level 137 Potassium Level 4.0 Chloride Level 96 L Carbon Dioxide Level 25 Anion Gap 16 H Blood Urea Nitrogen 49 H Creatinine 8.38 H Est Glomerular 6 L Filtrat Rate mL/min Glucose Level 163 Calcium Level 8.8 Medications Medication Current Medications EZETIMIBE (Zetia) 10 mg DAILY PO Last administered on 10/06/18 09:07; Admin Dose 10 MG; Start 09/25/18 at 09:00 Folic Acid (Folic Acid) 1 mg DAILY PO Last administered on 10/05/18 08:33; Admin Dose 1 MG; Start 09/25/18 at 09:00 Multivit/Ca Carb/ B Cmplx/FA/Prenat (Isabel-Brenda) 1 tab DAILY PO Last administere d on 10/05/18 08:33; Admin Dose 1 TAB; Start 09/25/18 at 09:00 Sevelamer Carbonate (Renvela) 0.8 gm WITH MEALS PO Last administered on 10/06/18 07:47; Admin Dose 0.8 GM; Start 09/24/18 at 17:55 IV Flush (NS 3 ml) 3 ml PER PROTOCOL IV ; Start 09/24/18 at 12:30 Ondansetron HCl (Zofran Tab) 4 mg Q6H PRN PO NAUSEA/VOMITING Last administered on 10/01/18 21:14; Admin Dose 4 MG; Start 09/24/18 at 12:30 Acetaminophen (Tylenol Tab) 650 mg Q6H PRN PO .PAIN 1-3 OR TEMP Last administered on 10/02/18 21:27; Admin Dose 650 MG; Start 09/24/18 at 12:30 Diagnostic Test (Pha) (Accu-Chek) 1 ea 02 XX Last administered on 10/06/18 02:45; Admin Dose 1 EA; Start 09/25/18 at 02:00 Insulin Glargine (Lantus) 31 units DAILY@0800 SC Last administered on 10/06/18 07:58; Admin Dose 31 UNITS; Start 09/24/18 at 12:30 Miscellaneous Information 1 ea NOTE XX ; Start 09/24/18 at 13:30 Glucose (Glutose) 15 gm Q15M PRN PO DECREASED GLUCOSE; Start 09/24/18 at 13:30 Glucose (Glutose) 22.5 gm Q15M PRN PO DECREASED GLUCOSE; Start 09/24/18 at 13:30 Dextrose (D50w Syringe) 25 ml Q15M PRN IV DECREASED GLUCOSE; Start 09/24/18 at 13:30 Dextrose (D50w Syringe) 50 ml Q15M PRN IV DECREASED GLUCOSE; Start 09/24/18 at 13:30 Glucagon (Glucagen) 1 mg Q15M PRN IM DECREASED GLUCOSE; Start 09/24/18 at 13:30 Glucose (Glutose) 15 gm Q15M PRN BUCCAL DECREASED GLUCOSE; Start 09/24/18 at 13:30 Albumin Human 100 ml @ 100 mls/hr WITH DIALYSIS PRN IV SBP <90 DURING DIALYSIS; Start 09/24/18 at 18:30 Sodium Chloride (NS) -To prime the dialy... DIRECTED FOR HD PRN IV HD; Start 09/24/18 at 18:30 Atorvastatin Calcium (Lipitor) 40 mg HS PO Last administered on 10/05/18 21:32; Admin Dose 40 MG; Start 09/25/18 at 21:00 Docusate Sodium/ Ferrous Fumarate (Les-Sequels) 1 tab BID PO Last administered on 10/05/18 21:32; Admin Dose 1 TAB; Start 09/27/18 at 21:00; Stop 10/27/18 at 20:59 Furosemide (Lasix) 40 mg BID DIURETICS PO Last administered on 10/06/18 05:39; Admin Dose 40 MG; Start 09/26/18 at 18:00 Acetaminophen/ Hydrocodone Bitart ([place] (5/325)) 1 tab Q4H PRN PO PAIN LEVEL 1-5; Start 09/27/18 at 03:00 Acetaminophen/ Hydrocodone Bitart ([place] (5/325)) 2 tab Q4H PRN PO PAIN LEVEL 6-10 Last administered on 09/30/18 19:25; Admin Dose 2 TAB; Start 09/27/18 at 03:00 Nitroglycerin (Nitroglycerin (Sl Tab) 0.4 Mg) 1 tab Q5M PRN SL ANGINA Last administered on 09/28/18 06:05; Admin Dose 1 TAB; Start 09/28/18 at 03:30 Ipratropium [place] (Atrovent Hfa) 2 puff QID RESP THERAPY PRN INH SHORTNESS OF BREATH; Start 09/28/18 at 04:00 Levalbuterol (Xopenex Neb) 1.25 mg Q4H RESP THERAPY PRN HHN SHORTNESS OF BREATH; Start 09/28/18 at 04:00 Ascorbic Acid (Vitamin C) 500 mg BID PO Last administered on 10/05/18 21:32; Admin Dose 500 MG; Start 09/28/18 at 21:00; Stop 10/28/18 at 20:59 Sucralfate (Carafate Susp) 1 gm QID GTB Last administered on 10/06/18 09:07; Admin Dose 1 GM; Start 09/28/18 at 13:00; Stop 10/12/18 at 12:59 Isosorbide Mononitrate (Imdur) 60 mg DAILY PO Last administered on 10/06/18 09:07; Admin Dose 60 MG; Start 09/28/18 at 15:00 Aspirin (Aspirin) 81 mg DAILY PO Last administered on 10/06/18 09:07; Admin Dose 81 MG; Start 09/30/18 at 09:00 Zolpidem Tartrate (Ambien) 5 mg HS PRN PO INSOMNIA Last administered on 10/03/18 23:04; Admin Dose 5 MG; Start 09/30/18 at 00:00 Epoetin Jero-epbx (Retacrit) 6,000 unit MoWeFr@1700 SC Last administered on 10/03/18 18:06; Admin Dose 6,000 UNIT; Start 10/01/18 at 17:00 Guaifenesin/ Dextromethorphan (Robitussin Dm Liquid Cup) 10 ml Q4H PRN PO COUGH Last administered on 10/06/18 05:41; Admin Dose 10 ML; Start 10/03/18 at 17:00 Pantoprazole (Protonix Tab) 40 mg BID@0600,1800 PO Last administered on 10/06/18 05:39; Admin Dose 40 MG; Start 10/03/18 at 18:00 Insulin Aspart (Novolog Insulin Pen) (Adult SC Insulin - Mild Algorithm)... AC MEALS AND BEDTIME SC Last administered on 10/06/18at 07:58; Admin Dose 2 UNIT; Start 10/03/18 at 21:00 DENZEL MICAHELS NP October 06, 2018 09:43
--- NOTE | 2018-10-06 10:07 | CONS ---
Assessment/Plan Assessment/Plan Assessment/Plan (Daily) 1. acute Hyperkalemia due to GI bleeding- resolved 2.Acute fluid overload with Uremia BUN 111 on admission 3. acute GI bleeding causing acute blood loss anemia 4. Severe Anemia with Hb 5.8 on admission 5. H/O HTN 6. H/O peripherla vascular disease 7. ESRD on HD 8. acute NSTEMI s/p [facility] on 09/30/18 that showed 3 V CAD- recommended CABG, s/p Evaluation by CT surgeon Plan: s/p 5 units PRBC trnasfusion during this admission , Hb 11 , BP stable, S/p Status post EGD/colonoscopy 09/27/19 -Anastomosis ulcer -Normal colonoscopy s/p HD today 3 L removed, -follow up at [facility] scheduled HD on MWF Lasix 40mg pO BID Plan for CABG tomorrow will follow up Consultation Date/Type/Reason Admit Date/Time September 24, 2018 at 08:08 Initial Consult Date 09/24/18 Type of Consult NEPHROLOGY Requesting Provider: LAVON SEE Date/Time of Note DATE: 10/06/18 TIME: 10:07 Exam/Review of Systems Exam Vitals Vital Signs Date Temp Pulse Resp B/P (MAP) Pulse Ox O2 O2 Flow FiO2 Time Delivery Rate 10/06/18 Room Air 08:45 10/06/18 91 08:17 10/06/18 97.8 18 104/56 95 07:54 (72) Intake and Output 10/05/18 10/05/18 10/06/18 1515:00 23:00 07:00 IntakeIntake Total 600 ml 300 ml BalanceBalance 600 ml 300 ml Exam Constitutional: Alert, awake no acute distress HEENT: [place] , Pale conjunctive, pale mucous membrane NECK: Supple without lymph node. CHEST: Slight wheezing on right upper lobe. HEART: S1, S2. Regular rate and rhythm. ABDOMEN: Soft/non tender with no rebound tenderness. Bowel sounds were present. EXTREMITIES: 3+edema on both LE NEUROLOGIC: Alert and oriented x3. No focal deficit. No sensory deficit. Results Result Diagram: 10/06/18 0525 10/06/18 0525 Results 24hrs Laboratory Tests Test 10/05/18 11:44 10/05/18 16:29 10/05/18 17:53 10/05/18 21:36 Bedside Glucose 339 H 360 H 386 H 261 H Test 10/06/18 02:33 10/06/18 05:25 10/06/18 07:41 Bedside Glucose 188 193 White Blood Count 10.7 Red Blood Count 3.38 L Hemoglobin 9.8 L Hematocrit 30.8 L Mean Corpuscular 91.1 Volume Mean Corpuscular 29.0 Hemoglobin Mean Corpuscular 31.8 L Hemoglobin Concent Red Cell 15.6 H Distribution Width Platelet Count 392 Mean Platelet Volume 10.4 Immature 0.800 H Granulocytes % Neutrophils % 63.1 Lymphocytes % 20.8 Monocytes % 9.8 Eosinophils % 4.3 Basophils % 1.2 Nucleated Red Blood 0.0 Cells % Immature 0.090 H Granulocytes # Neutrophils # 6.7 Lymphocytes # 2.2 Monocytes # 1.1 H Eosinophils # 0.5 Basophils # 0.1 Nucleated Red Blood 0.0 Cells # Prothrombin Time 14.0 Prothrombin Time 1.1 Ratio INR International 1.07 Normalized Ratio Activated 30.4 Partial Thromboplast Time Sodium Level 137 Potassium Level 4.0 Chloride Level 96 L Carbon Dioxide Level 25 Anion Gap 16 H Blood Urea Nitrogen 49 H Creatinine 8.38 H Est Glomerular 6 L Filtrat Rate mL/min Glucose Level 163 Calcium Level 8.8 Medications Medication Current Medications EZETIMIBE (Zetia) 10 mg DAILY PO Last administered on 10/06/18at 09:07; Admin Dose 10 MG; Start 09/25/18 at 09:00 Folic Acid (Folic Acid) 1 mg DAILY PO Last administered on 10/05/18at 08:33; Admin Dose 1 MG; Start 09/25/18 at 09:00 Multivit/Ca Carb/ B Cmplx/FA/Prenat (Isabel-Brenda) 1 tab DAILY PO Last administered on 10/05/18at 08:33; Admin Dose 1 TAB; Start 09/25/18 at 09:00 Sevelamer Carbonate (Renvela) 0.8 gm WITH MEALS PO Last administered on 10/06/18at 07:47; Admin Dose 0.8 GM; Start 09/24/18 at 17:55 IV Flush (NS 3 ml) 3 ml PER PROTOCOL IV ; Start 09/24/18 at 12:30 Ondansetron HCl (Zofran Tab) 4 mg Q6H PRN PO NAUSEA/VOMITING Last administered on 10/01/18 21:14; Admin Dose 4 MG; Start 09/24/18 at 12:30 Acetaminophen (Tylenol Tab) 650 mg Q6H PRN PO .PAIN 1-3 OR TEMP Last administered on 10/02/18 21:27; Admin Dose 650 MG; Start 09/24/18 at 12:30 Diagnostic Test (Pha) (Accu-Chek) 1 ea 02 XX Last administered on 10/06/18 02:45; Admin Dose 1 EA; Start 09/25/18 at 02:00 Insulin Glargine (Lantus) 31 units DAILY@0800 SC Last administered on 10/06/18 07:58; Admin Dose 31 UNITS; Start 09/24/18 at 12:30 Miscellaneous Information 1 ea NOTE XX ; Start 09/24/18 at 13:30 Glucose (Glutose) 15 gm Q15M PRN PO DECREASED GLUCOSE; Start 09/24/18 at 13:30 Glucose (Glutose) 22.5 gm Q15M PRN PO DECREASED GLUCOSE; Start 09/24/18 at 13:30 Dextrose (D50w Syringe) 25 ml Q15M PRN IV DECREASED GLUCOSE; Start 09/24/18 at 13:30 Dextrose (D50w Syringe) 50 ml Q15M PRN IV DECREASED GLUCOSE; Start 09/24/18 at 13:30 Glucagon (Glucagen) 1 mg Q15M PRN IM DECREASED GLUCOSE; Start 09/24/18 at 13:30 Glucose (Glutose) 15 gm Q15M PRN BUCCAL DECREASED GLUCOSE; Start 09/24/18 at 13:30 Albumin Human 100 ml @ 100 mls/hr WITH DIALYSIS PRN IV SBP <90 DURING DIALYSIS; Start 09/24/18 at 18:30 Sodium Chloride (NS) -To prime the dialy... DIRECTED FOR HD PRN IV HD; Start 09/24/18 at 18:30 Atorvastatin Calcium (Lipitor) 40 mg HS PO Last administered on 10/05/18 21:32; Admin Dose 40 MG; Start 09/25/18 at 21:00 Docusate Sodium/ Ferrous Fumarate (Les-Sequels) 1 tab BID PO Last admin istered on 10/05/18 21:32; Admin Dose 1 TAB; Start 09/27/18 at 21:00; Stop 10/27/18 at 20:59 Furosemide (Lasix) 40 mg BID DIURETICS PO Last administered on 10/06/18 05:39; Admin Dose 40 MG; Start 09/26/18 at 18:00 Acetaminophen/ Hydrocodone Bitart ([place] (5/325)) 1 tab Q4H PRN PO PAIN LEVEL 1-5; Start 09/27/18 at 03:00 Acetaminophen/ Hydrocodone Bitart ([place] (5/325)) 2 tab Q4H PRN PO PAIN LEVEL 6-10 Last administered on 09/30/18 19:25; Admin Dose 2 TAB; Start 09/27/18 at 03:00 Nitroglycerin (Nitroglycerin (Sl Tab) 0.4 Mg) 1 tab Q5M PRN SL ANGINA Last administered on 09/28/18 06:05; Admin Dose 1 TAB; Start 09/28/18 at 03:30 Ipratropium [place] (Atrovent Hfa) 2 puff QID RESP THERAPY PRN INH SHORTNESS OF BREATH; Start 09/28/18 at 04:00 Levalbuterol (Xopenex Neb) 1.25 mg Q4H RESP THERAPY PRN HHN SHORTNESS OF BREATH; Start 09/28/18 at 04:00 Ascorbic Acid (Vitamin C) 500 mg BID PO Last administered on 10/05/18 21:32; Admin Dose 500 MG; Start 09/28/18 at 21:00; Stop 10/28/18 at 20:59 Sucralfate (Carafate Susp) 1 gm QID GTB Last administered on 10/06/18 09:07; Admin Dose 1 GM; Start 09/28/18 at 13:00; Stop 10/12/18 at 12:59 Isosorbide Mononitrate (Imdur) 60 mg DAILY PO Last administered on 10/06/18 09:07; Admin Dose 60 MG; Start 09/28/18 at 15:00 Aspirin (Aspirin) 81 mg DAILY PO Last administered on 10/06/18 09:07; Admin Dose 81 MG; Start 09/30/18 at 09:00 Zolpidem Tartrate (Ambien) 5 mg HS PRN PO INSOMNIA Last administered on 10/03/18 23:04; Admin Dose 5 MG; Start 09/30/18 at 00:00 Epoetin Jero-epbx (Retacrit) 6,000 unit MoWeFr@1700 SC Last administered on 10/03/18at 18:06; Admin Dose 6,000 UNIT; Start 10/01/18 at 17:00 Guaifenesin/ Dextromethorphan (Robitussin Dm Liquid Cup) 10 ml Q4H PRN PO COUGH Last administered on 10/06/18at 05:41; Admin Dose 10 ML; Start 10/03/18 at 17:00 Pantoprazole (Protonix Tab) 40 mg BID@0600,1800 PO Last administered on 10/06/18at 05:39; Admin Dose 40 MG; Start 10/03/18 at 18:00 Insulin Aspart (Novolog Insulin Pen) (Adult SC Insulin - Mild Algorithm)... AC MEALS AND BEDTIME SC Last administered on 10/06/18at 07:58; Admin Dose 2 UNIT; Start 10/03/18 at 21:00 Guaifenesin/ Dextromethorphan (Mucinex Dm) 1 tab BID PO ; Start 10/06/18 at 10 :00 RAQUEL MCDOWELL MD October 06, 2018 10:07
--- NOTE | 2018-10-06 11:25 | CONS ---
Assessment/Plan Assessment/Plan Hospital Course (Demo Recall) NSTEMI: chest pain 09/28 3 am and none since. Trop peak 1.1 and trended down. S/p cath 09/30/18 with diffuse multivessel CAD best suitable for CABG for this diabetic pt. Seen by cardiac surgery. CABG tomorrow Upper GI bleed: due to anastomotic ulcer seen on EGD 09/26. No bleeding since even on heparin drip. Black stools but on iron and stool occult negative. Hgb stable. Anemia: due to above. s/p 5 units PRBCs. Stable Wenckebach: Mobitz 1. Not on BB. No pauses or high grade block. 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 Now stopped DM ESRD on HD MWF HTN H/o Billroth -CABG tomorrow -ASA 81mg daily -continue imdur 60mg -lipitor 40mg -lasix 40mg PO BID -HD per nephrology Consultation Date/Type/Reason Admit Date/Time September 24, 2018 at 08:08 Initial Consult Date 09/24/18 Type of Consult Cardiology Requesting Provider: LAVON SEE Date/Time of Note DATE: 10/06/18 TIME: 11:24 24 HR Interval Summary Free Text/Dictation No events over the weekend. Plan for CABG tomorrow at noon. No chest pain or bleeding Exam/Review of Systems Vital Signs Vitals Vital Signs Date Temp Pulse Resp B/P (MAP) Pulse Ox O2 O2 Flow FiO2 Time Delivery Rate 10/06/18 97.7 88 20 126/70 98 11:04 (88) 10/06/18 Room Air 08:45 Intake and Output 10/05/18 10/05/18 10/06/18 1515:00 23:00 07:00 IntakeIntake Total 600 ml 300 ml BalanceBalance 600 ml 300 ml Exam Constitutional: alert, oriented Psych: no complaints, nl mood/affect Head: normocephalic, atraumatic Neck: No jvd Respiratory: clear to auscultation Cardiovascular: regular rate and rhythm; No edema Gastrointestinal: soft, non-tender; No distended 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: nl mental status, nl speech Labs Result Diagram: 10/06/18 0525 10/06/18 0525 Results 24hrs Laboratory Tests Test 10/05/18 11:44 10/05/18 16:29 10/05/18 17:53 10/05/18 21:36 Bedside Glucose 339 H 360 H 386 H 261 H Test 10/06/18 02:33 10/06/18 05:25 10/06/18 07:41 Bedside Glucose 188 193 White Blood Count 10.7 Red Blood Count 3.38 L Hemoglobin 9.8 L Hematocrit 30.8 L Mean Corpuscular 91.1 Volume Mean Corpuscular 29.0 Hemoglobin Mean Corpuscular 31.8 L Hemoglobin Concent Red Cell 15.6 H Distribution Width Platelet Count 392 Mean Platelet Volume 10.4 Immature 0.800 H Granulocytes % Neutrophils % 63.1 Lymphocytes % 20.8 Monocytes % 9.8 Eosinophils % 4.3 Basophils % 1.2 Nucleated Red Blood 0.0 Cells % Immature 0.090 H Granulocytes # Neutrophils # 6.7 Lymphocytes # 2.2 Monocytes # 1.1 H Eosinophils # 0.5 Basophils # 0.1 Nucleated Red Blood 0.0 Cells # Prothrombin Time 14.0 Prothrombin Time 1.1 Ratio INR International 1.07 Normalized Ratio Activated 30.4 Partial Thromboplast Time Sodium Level 137 Potassium Level 4.0 Chloride Level 96 L Carbon Dioxide Level 25 Anion Gap 16 H Blood Urea Nitrogen 49 H Creatinine 8.38 H Est Glomerular 6 L Filtrat Rate mL/min Glucose Level 163 Calcium Level 8.8 Medications Medications Current Medications EZETIMIBE (Zetia) 10 mg DAILY PO Last administered on 10/06/18at 09:07; Admin Dose 10 MG; Start 09/25/18 at 09:00 Folic Acid (Folic Acid) 1 mg DAILY PO Last administered on 10/05/18at 08:33; Admin Dose 1 MG; Start 09/25/18 at 09:00 Multivit/Ca Carb/ B Cmplx/FA/Prenat (Isabel-Brenda) 1 tab DAILY PO Last administered on 10/05/18at 08:33; Admin Dose 1 TAB; Start 09/25/18 at 09:00 Sevelamer Carbonate (Renvela) 0.8 gm WITH MEALS PO Last administered on 10/06/18at 07:47; Admin Dose 0.8 GM; Start 09/24/18 at 17:55 IV Flush (NS 3 ml) 3 ml PER PROTOCOL IV ; Start 09/24/18 at 12:30 Ondansetron HCl (Zofran Tab) 4 mg Q6H PRN PO NAUSEA/VOMITING Last administered on 10/01/18at 21:14; Admin Dose 4 MG; Start 09/24/18 at 12:30 Acetaminophen (Tylenol Tab) 650 mg Q6H PRN PO .PAIN 1-3 OR TEMP Last administered on 10/02/18at 21:27; Admin Dose 650 MG; Start 09/24/18 at 12:30 Diagnostic Test (Pha) (Accu-Chek) 1 ea 02 XX Last administered on 10/06/18 02:45; Admin Dose 1 EA; Start 09/25/18 at 02:00 Insulin Glargine (Lantus) 31 units DAILY@0800 SC Last administered on 10/06/18 07:58; Admin Dose 31 UNITS; Start 09/24/18 at 12:30 Miscellaneous Information 1 ea NOTE XX ; Start 09/24/18 at 13:30 Glucose (Glutose) 15 gm Q15M PRN PO DECREASED GLUCOSE; Start 09/24/18 at 13:30 Glucose (Glutose) 22.5 gm Q15M PRN PO DECREASED GLUCOSE; Start 09/24/18 at 13:30 Dextrose (D50w Syringe) 25 ml Q15M PRN IV DECREASED GLUCOSE; Start 09/24/18 at 13:30 Dextrose (D50w Syringe) 50 ml Q15M PRN IV DECREASED GLUCOSE; Start 09/24/18 at 13:30 Glucagon (Glucagen) 1 mg Q15M PRN IM DECREASED GLUCOSE; Start 09/24/18 at 13:30 Glucose (Glutose) 15 gm Q15M PRN BUCCAL DECREASED GLUCOSE; Start 09/24/18 at 13:30 Albumin Human 100 ml @ 100 mls/hr WITH DIALYSIS PRN IV SBP <90 DURING DIALYSIS; Start 09/24/18 at 18:30 Sodium Chloride (NS) -To prime the dialy... DIRECTED FOR HD PRN IV HD; Start 09/24/18 at 18:30 Atorvastatin Calcium (Lipitor) 40 mg HS PO Last administered on 10/05/18at 21:32; Admin Dose 40 MG; Start 09/25/18 at 21:00 Docusate Sodium/ Ferrous Fumarate (Les-Sequels) 1 tab BID PO Last admini stered on 10/05/18 21:32; Admin Dose 1 TAB; Start 09/27/18 at 21:00; Stop 10/27/18 at 20:59 Furosemide (Lasix) 40 mg BID DIURETICS PO Last administered on 10/06/18 05:39; Admin Dose 40 MG; Start 09/26/18 at 18:00 Acetaminophen/ Hydrocodone Bitart ([place] (5/325)) 1 tab Q4H PRN PO PAIN LEVEL 1-5; Start 09/27/18 at 03:00 Acetaminophen/ Hydrocodone Bitart ([place] (5/325)) 2 tab Q4H PRN PO PAIN LEVEL 6-10 Last administered on 09/30/18 19:25; Admin Dose 2 TAB; Start 09/27/18 at 03:00 Nitroglycerin (Nitroglycerin (Sl Tab) 0.4 Mg) 1 tab Q5M PRN SL ANGINA Last administered on 09/28/18 06:05; Admin Dose 1 TAB; Start 09/28/18 at 03:30 Ipratropium [place] (Atrovent Hfa) 2 puff QID RESP THERAPY PRN INH SHORTNESS OF BREATH; Start 09/28/18 at 04:00 Levalbuterol (Xopenex Neb) 1.25 mg Q4H RESP THERAPY PRN HHN SHORTNESS OF BREATH; Start 09/28/18 at 04:00 Ascorbic Acid (Vitamin C) 500 mg BID PO Last administered on 10/05/18 21:32; Admin Dose 500 MG; Start 09/28/18 at 21:00; Stop 10/28/18 at 20:59 Sucralfate (Carafate Susp) 1 gm QID GTB Last administered on 10/06/18 09:07; Admin Dose 1 GM; Start 09/28/18 at 13:00; Stop 10/12/18 at 12:59 Isosorbide Mononitrate (Imdur) 60 mg DAILY PO Last administered on 10/06/18 09:07; Admin Dose 60 MG; Start 09/28/18 at 15:00 Aspirin (Aspirin) 81 mg DAILY PO Last administered on 10/06/18 09:07; Admin Dose 81 MG; Start 09/30/18 at 09:00 Zolpidem Tartrate (Ambien) 5 mg HS PRN PO INSOMNIA Last administered on 10/03/18at 23:04; Admin Dose 5 MG; Start 09/30/18 at 00:00 Epoetin Jero-epbx (Retacrit) 6,000 unit MoWeFr@1700 SC Last administered on 10/03/18at 18:06; Admin Dose 6,000 UNIT; Start 10/01/18 at 17:00 Guaifenesin/ Dextromethorphan (Robitussin Dm Liquid Cup) 10 ml Q4H PRN PO COUGH Last administered on 10/06/18at 05:41; Admin Dose 10 ML; Start 10/03/18 at 17:00 Pantoprazole (Protonix Tab) 40 mg BID@0600,1800 PO Last administered on 10/06/18at 05:39; Admin Dose 40 MG; Start 10/03/18 at 18:00 Insulin Aspart (Novolog Insulin Pen) (Adult SC Insulin - Mild Algorithm)... AC MEALS AND BEDTIME SC Last administered on 10/06/18at 07:58; Admin Dose 2 UNIT; Start 10/03/18 at 21:00 Guaifenesin/ Dextromethorphan (Mucinex Dm) 1 tab BID PO ; Start 10/06/18 at 10: 00 LAVON SEE October 06, 2018 11:25
[2018-10-06] MEDS: GUAIFENESIN/DM (SR) TAB PO SCH ×2 (12:55→21:20)
[2018-10-06] MEDS: MULTIVIT/CA CARB/B CMPLX/FA TAB PO SCH (14:20)
[2018-10-06] MEDS: FOLIC ACID 1 MG TAB PO SCH (14:21)
[2018-10-06] MEDS: EPOETIN ALFA-EPBX (ESRD) 3,000 UNIT/ML VIAL SC SCH (17:32)
--- NOTE | 2018-10-06 18:24 | PN ---
Date/Time of Note Date/Time of Note DATE: 10/06/18 TIME: 18:23 Assessment/Plan Lines/Catheters IV Catheter Type (from Nrsg): Saline Lock [facility] in Place (from Nrsg): No Assessment/Plan Chief Complaint/Hosp Course -No current vascular intervention at this time given GIB and severe CAD. Life over limb at this time. -LLE toe gangrene dry and stable -Will continue to monitor his progress Bilateral lower extremity atherosclerosis with left lower extremity with left lower extremity third toe gangrene: It seems that the patient's left lower extremity third toe has become dry gangrene and currently stable. Unfortunately his first and second toe have also become gangrene with no significant erythema. The patient's foot pain has gradually improved since we had seen him a month ago and followed him in the office over the past few weeks. From a vascular surgery standpoint, recommend no current intervention as the patient has likely an upper gastrointestinal bleed. We are hoping that the patient's lower extremity atherosclerotic disease will not worsen during this period of time. Given that the patient's anticoagulation and antiplatelet therapy will need to be held until his gastrointestinal evaluation has resolved -Bilateral lower extremity varicose veins and edema: The patient has component of mixed disease (venous insufficiency and arterial sufficiency). At the moment, we recommend elevation of the bilateral lower extremities while at rest. No further intervention will be needed and can be followed as an outpatient in regards to venous insufficiency. -End-stage renal disease: At the moment the patient's left upper extremity fistula is functional and tolerating to needle cannulations. Recommend usinf 17 gauge needle for cannulation for now. 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 Optimize vascular status (BP meds, diet, nutrition, exercise, sugar control). We will resume antiplatelet therapy once cleared from GI standpoint. Discussed findings, plan and management with the patient and at the bedside and they understand. Thank you for allowing us to partake in the care of your patient. Please call with any questions. A certified bacteriologist fishery was present throughout the conversation. Subjective 24 Hr Interval Summary Constitutional: no complaints Pain Control: well controlled Exam/Review of Systems Vital Signs Vitals Vital Signs Date Temp Pulse Resp B/P (MAP) Pulse Ox O2 O2 Flow FiO2 Time Delivery Rate 5/13/19 Room Air 16:35 10/06/18 62 16:31 10/06/18 97.8 18 127/59 95 15:43 (81) Intake and Output 10/05/18 10/05/18 10/06/18 1515:00 23:00 07:00 IntakeIntake Total 600 ml 300 ml BalanceBalance 600 ml 300 ml Exam Free Text/Dictation GENERAL: Alert and oriented x3, no apparent distress. HEENT: Normocephalic, atraumatic. Mucosa moist. NECK: Supple, no carotid bruit. PULMONARY: Clear to auscultation bilaterally. No crackles. CARDIOVASCULAR: S1, S2 present. Irregularly irregular. ABDOMEN: Soft, nontender, nondistended. Bowel sounds positive. Large truncal obesity. EXTREMITIES: Right lower extremity palpable femoral pulse, nonpalpable pedal pulse. Motor, sensory intact. Cap refill 3 to 4 seconds. Presence of varicose veins and large leg. Left lower extremity palpable femoral pulse, nonpalpable pedal pulse. Motor, sensory intact. Cap refill 3 to 4 seconds. Third toe gangrene, First and second toe with previous bluish discoloration and formation of gangrene now. Varicose veins and edema of the left lower extremity with presence of mild lipodermatosclerosis. Left upper extremity: Palpable brachial pulse, motor/sensory intact, fistula with bruit and thrill present Results Result Diagram: 10/06/18 0525 10/06/18 0525 VANIA PEREYRA MD October 06, 2018 18:24
[2018-10-06] MEDS: ATORVASTATIN 40 MG TAB PO SCH (21:21)
[2018-10-06] MEDS ORDERED: INSULIN ASPART [NOVOLOG] 3 ML PEN SC ONE (22:00)
[2018-10-06] MEDS: ZOLPIDEM 5 MG TAB PO PRN (22:33)
[2018-10-07] VITALS (19 sets, daily range): BP systolic 88–120; BP diastolic 50–73; PULSE 53–112; RESP 14–18; TEMP 98.5–98.7
[2018-10-07] MEDS ORDERED: ACCU-CHEK XX ONE
[2018-10-07] MEDS: ACCU-CHEK XX SCH ×3 (02:12→23:00)
[2018-10-07] MEDS: PANTOPRAZOLE (EC) 40 MG TAB PO SCH (06:17)
[2018-10-07] MEDS: FUROSEMIDE 40 MG TAB PO SCH (06:18)
[2018-10-07] MEDS: BALSAM PERU/CASTOR OIL 60 GM TUBE TOP SCH (07:41)
[2018-10-07] MEDS: ASCORBIC ACID 500 MG TAB PO SCH (07:41)
[2018-10-07] MEDS: Insulin NOVOLOG SS MILD Algorithm (SS with meals and bedtime) SC SCH ×2 (07:41→12:06)
[2018-10-07] MEDS: EZETIMIBE 10 MG TAB PO SCH (07:41)
[2018-10-07] MEDS: FOLIC ACID 1 MG TAB PO SCH (07:42)
[2018-10-07] MEDS: MULTIVIT/CA CARB/B CMPLX/FA TAB PO SCH (07:42)
[2018-10-07] MEDS: ASPIRIN 81 MG TAB PO SCH (07:42)
[2018-10-07] MEDS: SUCRALFATE (100 MG/ML) 10ML CUP GTB SCH ×2 (07:42→11:37)
[2018-10-07] MEDS: ISOSORBIDE MONONITRATE(SR)60 MG TAB PO SCH (07:42)
[2018-10-07] MEDS: FERROUS FUMARATE (SR) TAB PO SCH (07:42)
[2018-10-07] MEDS: GUAIFENESIN/DM (SR) TAB PO SCH (07:42)
[2018-10-07] MEDS: INSULIN GLARGINE [LANTus] (100 UNITS/ML) SYG SC SCH (07:43)
[2018-10-07] MEDS: SEVELAMER CARBONATE 0.8 GM PKT PO SCH ×2 (07:43→11:37)
[2018-10-07] MEDS ORDERED: EPINEPHrine 4 MG in DEXTROSE 5% 246 ML IV ONE (12:00)
[2018-10-07] MEDS ORDERED: HEPARIN (10000 UNITS/ML) 10,000 UNIT, MILRINONE LACTATE 10 MG in SOD CHLORIDE 0.9% 1,00... SC ONE (12:00)
[2018-10-07] MEDS ORDERED: MILRINONE LACTATE 2 MG in SOD CHLORIDE 0.9% 50 ML IV ONE (12:00)
[2018-10-07] MEDS ORDERED: ASPIRIN 600 MG SUPP PR ONE (12:00)
[2018-10-07] MEDS ORDERED: INSULIN HUMAN REGULAR 100 UNIT in SOD CHLORIDE 0.9% 99 ML IVPB ONE (12:00)
[2018-10-07] MEDS ORDERED: PHENYLephrine 20MG IN 250 ML 250 ML IV ONE (12:00)
[2018-10-07] MEDS ORDERED: NORepinephrine 8MG/250 ML (PMX 250 ML IV ONE (12:00)
--- NOTE | 2018-10-07 12:55 | PN ---
Date/Time of Note Date/Time of Note DATE: 10/07/18 TIME: 12:52 Assessment/Plan VTE Prophylaxis Risk score (from Ns)>0 risk: 5 SCD applied (from Ns): No SCD contraindicated: other (gangrene and PAD) Pharmacological prophylaxis: apixaban Lines/Catheters IV Catheter Type (from [facility]): Saline Lock Urinary Cath still in place: No Assessment/Plan Assessment/Plan ASSESSMENT AND PLAN:67 yo with numerous comorbidities including dyslipidemia, IDDM, ESRD on HD and severe PVD who is also anticoagulated on Eliquis/Plavix,here with worsening malaise, found to have severe anemia/positive stool OB... also had NSTEMI #NSTEMI/Multivessel coronary artery disease s/p LHC 09/30 -for CABG today 10/07 -Cont antiplatelet/statin-Not a candidate for BB 2/2 HB -f/u cards/cv recs. #Severe acute symptomatic blood loss anemia -Improved with multiple transfusion. -Continue iron #Upper GI bleed -resolved -s/p EGD showed anastomotic ulcer (hx billroth II) -On PPI/Carafate #Mobitz type I heart block -Stable -Avoid BB/AV jesus agents. -Cards follow-up #ESRD, hemodialysis MWF -Management per nephrology -also getting diuretics as well #DMII -Cont.basal/bolus -transition to oral on dc #Bilateral lower extremity atherosclerosis with left third toe dry gangrene -Chronic and stable issue and patient has been following up with vascular as outpatient-s/p angio 08/12 -Appreciate in-house vascular follow-up and no intervention recommended at this time. -Wound care #Obesity with BMI 36.3 -Weight reduction advised. #Anemia of ESRD -on Epogen with hemodialysis. DVT prophylaxis: SCDs PUD prophylaxis: Protonix Disposition: CABG today. Result Diagram: 10/07/1837 10/07/18536 Subjective 24 Hr Interval Summary Free Text/Dictation No acute overnight events. Patient resting comfortably in room with family, awake and alert. Plan for CABG today at 14:00. Exam/Review of Systems Exam Vitals Vital Signs Date Temp Pulse Resp B/P (MAP) Pulse Ox O2 O2 Flow FiO2 Time Delivery Rate 10/07/18 62 12:24 10/07/18 Room Air 12:09 10/07/18 97.6 18 112/58 96 11:08 (76) Intake and Output 10/06/18 10/06/18 10/07/18 1515:00 23:00 07:00 IntakeIntake Total 1500 ml 300 ml OutputOutput Total 3600 ml BalanceBalance -3600 ml 1500 ml 300 ml Exam Constitutional: Obese man lying in bed, awake and alert. HEENT: Head atraumatic and normocephalic. NECK: Supple without lymph node. CHEST: Slight wheezing on right upper lobe. HEART: S1, S2. Regular rate and rhythm. ABDOMEN: Soft/non tender with no rebound tenderness. EXTREMITIES: BLE nonpitting edema. R foot with palpable DP pulse. L foot no palpable pulse. 3rd toe and medial 1st toe dry gangrene. Results Results 24hrs Laboratory Tests Test 10/06/18 16:58 10/06/18 17:01 10/06/18 21:19 10/07/18 00:14 Bedside Glucose 359 H 366 H 395 H 322 H Test 10/07/18 02:02 10/07/18 05:37 10/07/18 07:34 10/07/18 11:55 Bedside Glucose 263 H 209 198 White Blood Count 13.0 #H Red Blood Count 3.62 L Hemoglobin 10.5 L Hematocrit 33.4 L Mean Corpuscular 92.3 Volume Mean Corpuscular 29.0 Hemoglobin Mean Corpuscular 31.4 L Hemoglobin Concent Red Cell 15.9 H Distribution Width Platelet Count 372 Mean Platelet Volume 10.5 H Immature 1.000 H Granulocytes % Neutrophils % 65.6 Lymphocytes % 20.1 Monocytes % 9.9 Eosinophils % 2.5 Basophils % 0.9 Nucleated Red Blood 0.0 Cells % Immature 0.130 H Granulocytes # Neutrophils # 8.5 H Lymphocytes # 2.6 Monocytes # 1.3 H Eosinophils # 0.3 Basophils # 0.1 Nucleated Red Blood 0.0 Cells # Prothrombin Time 13.9 Prothrombin Time 1.1 Ratio INR International 1.06 Normalized Ratio Sodium Level 139 Potassium Level 4.7 Chloride Level 97 Carbon Dioxide Level 26 Anion Gap 16 H Blood Urea Nitrogen 48 H Creatinine 7.70 H Est Glomerular 7 L Filtrat Rate mL/min Glucose Level 199 Calcium Level 9.3 Phosphorus Level 3.8 Magnesium Level 2.2 Medications Medication Current Medications EZETIMIBE (Zetia) 10 mg DAILY PO Last administered on 10/06/18 09:07; Admin Dose 10 MG; Start 09/25/18 at 09:00 Folic Acid (Folic Acid) 1 mg DAILY PO Last administered on 10/06/18 14:21; Admin Dose 1 MG; Start 09/25/18 at 09:00 Multivit/Ca Carb/ B Cmplx/FA/Prenat (Isabel-Brenda) 1 tab DAILY PO Last administered on 10/06/18 14:20; Admin Dose 1 TAB; Start 09/25/18 at 09:00 Sevelamer Carbonate (Renvela) 0.8 gm WITH MEALS PO Last administered on 10/06/18 17:30; Admin Dose 0.8 GM; Start 09/24/18 at 17:55 IV Flush (NS 3 ml) 3 ml PER PROTOCOL IV ; Start 09/24/18 at 12:30 Ondansetron HCl (Zofran Tab) 4 mg Q6H PRN PO NAUSEA/VOMITING Last administered on 10/01/18 21:14; Admin Dose 4 MG; Start 09/24/18 at 12:30 Acetaminophen (Tylenol Tab) 650 mg Q6H PRN PO .PAIN 1-3 OR TEMP Last administered on 10/02/18 21:27; Admin Dose 650 MG; Start 09/24/18 at 12:30 Diagnostic Test (Pha) (Accu-Chek) 1 ea 02 XX Last administered on 10/07/18 02:12; Admin Dose 1 EA; Start 09/25/18 at 02:00 Insulin Glargine (Lantus) 31 units DAILY@0800 SC Last administered on 10/06/18 07:58; Admin Dose 31 UNITS; Start 09/24/18 at 12:30 Miscellaneous Information 1 ea NOTE XX ; Start 09/24/18 at 13:30 Glucose (Glutose) 15 gm Q15M PRN PO DECREASED GLUCOSE; Start 09/24/18 at 13:30 Glucose (Glutose) 22.5 gm Q15M PRN PO DECREASED GLUCOSE; Start 09/24/18 at 13:30 Dextrose (D50w Syringe) 25 ml Q15M PRN IV DECREASED GLUCOSE; Start 09/24/18 at 13:30 Dextrose (D50w Syringe) 50 ml Q15M PRN IV DECREASED GLUCOSE; Start 09/24/18 at 13:30 Glucagon (Glucagen) 1 mg Q15M PRN IM DECREASED GLUCOSE; Start 09/24/18 at 13:30 Glucose (Glutose) 15 gm Q15M PRN BUCCAL DECREASED GLUCOSE; Start 09/24/18 at 13:30 Albumin Human 100 ml @ 100 mls/hr WITH DIALYSIS PRN IV SBP <90 DURING DIALYSIS; Start 09/24/18 at 18:30 Sodium Chloride (NS) -To prime the dialy... DIRECTED FOR HD PRN IV HD; Start 09/24/18 at 18:30 Atorvastatin Calcium (Lipitor) 40 mg HS PO Last administered on 10/06/18at 21:21; Admin Dose 40 MG; Start 09/25/18 at 21:00 Docusate Sodium/ Ferrous Fumarate (Les-Sequels) 1 tab BID PO Last administered on 10/06/18at 14:20; Admin Dose 1 TAB; Start 09/27/18 at 21:00; Stop 10/27/18 at 20:59 Furosemide (Lasix) 40 mg BID DIURETICS PO Last administered on 10/07/18at 06:18; Admin Dose 40 MG; Start 09/26/18 at 18:00 Acetaminophen/ Hydrocodone Bitart ([place] (5/325)) 1 tab Q4H PRN PO PAIN LEVEL 1-5; Start 09/27/18 at 03:00 Acetaminophen/ Hydrocodone Bitart (Ball (5/325)) 2 tab Q4H PRN PO PAIN LEVEL 6-10 Last administered on 09/30/18at 19:25; Admin Dose 2 TAB; Start 09/27/18 at 03:00 Nitroglycerin (Nitroglycerin (Sl Tab) 0.4 Mg) 1 tab Q5M PRN SL ANGINA Last administered on 09/28/18at 06:05; Admin Dose 1 TAB; Start 09/28/18 at 03:30 Ipratropium [place] (Atrovent Hfa) 2 puff QID RESP THERAPY PRN INH SHORTNESS OF BREATH; Start 09/28/18 at 04:00 Levalbuterol (Xopenex Neb) 1.25 mg Q4H RESP THERAPY PRN HHN SHORTNESS OF BREATH; Start 09/28/18 at 04:00 Ascorbic Acid (Vitamin C) 500 mg BID PO Last administered on 10/06/18at 14:21; Admin Dose 500 MG; Start 09/28/18 at 21:00; Stop 10/28/18 at 20:59 Sucralfate (Carafate Susp) 1 gm QID GTB Last administered on 10/06/18 21:20; Admin Dose 1 GM; Start 09/28/18 at 13:00; Stop 10/12/18 at 12:59 Isosorbide Mononitrate (Imdur) 60 mg DAILY PO Last administered on 10/06/18 09:07; Admin Dose 60 MG; Start 09/28/18 at 15:00 Aspirin (Aspirin) 81 mg DAILY PO Last administered on 10/06/18 09:07; Admin Dose 81 MG; Start 09/30/18 at 09:00 Zolpidem Tartrate (Ambien) 5 mg HS PRN PO INSOMNIA Last administered on 10/06/18 22:33; Admin Dose 5 MG; Start 09/30/18 at 00:00 Epoetin Jero-epbx (Retacrit) 6,000 unit MoWeFr@1700 SC Last administered on 10/06/18 17:32; Admin Dose 6,000 UNIT; Start 10/01/18 at 17:00 Guaifenesin/ Dextromethorphan (Robitussin Dm Liquid Cup) 10 ml Q4H PRN PO COUGH Last administered on 10/06/18 21:20; Admin Dose 10 ML; Start 10/03/18 at 17:00 Pantoprazole (Protonix Tab) 40 mg BID@0600,1800 PO Last administered on 10/07/18 06:17; Admin Dose 40 MG; Start 10/03/18 at 18:00 Insulin Aspart (Novolog Insulin Pen) (Adult SC Insulin - Mild Algorithm)... AC MEALS AND BEDTIME SC Last administered on 10/07/18 12:06; Admin Dose 2 UNIT; Start 10/03/18 at 21:00 Guaifenesin/ Dextromethorphan (Mucinex Dm) 1 tab BID PO Last administered on 10/06/18 21:20; Admin Dose 1 TAB; Start 10/06/18 at 10:00 AUGUST LUCIANO MD October 07, 2018 12:55
--- NOTE | 2018-10-07 14:03 | CONS ---
Assessment/Plan Assessment/Plan Assessment/Plan (Daily) 1. acute Hyperkalemia due to GI bleeding- resolved 2.Acute fluid overload with Uremia BUN 111 on admission 3. acute GI bleeding causing acute blood loss anemia 4. Severe Anemia with Hb 5.8 on admission 5. H/O HTN 6. H/O peripherla vascular disease 7. ESRD on HD 8. acute NSTEMI s/p LHC on 09/30/18 that showed 3 V CAD- recommended CABG, s/p Evaluation by CT surgeon Plan: s/p 5 units PRBC trnasfusion during this admission , Hb 11 , BP stable, S/p Status post EGD/colonoscopy 09/27/19 -Anastomosis ulcer -Normal colonoscopy s/p HD today 3 L removed, -follow up at [facility] scheduled HD on MWF Lasix 40mg pO BID Plan for CABG today, will keep pt on list for HD on saturday will follow up Consultation Date/Type/Reason Admit Date/Time September 24, 2018 at 08:08 Initial Consult Date 09/24/18 Type of Consult NEPHROLOGY Requesting Provider: LAVON SEE Date/Time of Note DATE: 10/07/18 TIME: 14:02 24 HR Interval Summary Free Text/Dictation plan for CABG today, will plan for HD tomorrow afternoon Exam/Review of Systems Exam Vitals Vital Signs Date Temp Pulse Resp B/P (MAP) Pulse Ox O2 O2 Flow FiO2 Time Delivery Rate 10/07/18 62 12:24 10/07/18 Room Air 12:09 10/07/18 97.6 18 112/58 96 11:08 (76) Intake and Output 10/06/18 10/06/18 10/07/18 1515:00 23:00 07:00 IntakeIntake Total 1500 ml 300 ml OutputOutput Total 3600 ml BalanceBalance -3600 ml 1500 ml 300 ml Exam Constitutional: Alert, awake no acute distress HEENT: [place] , Pale conjunctive, pale mucous membrane NECK: Supple without lymph node. CHEST: Slight wheezing on right upper lobe. HEART: S1, S2. Regular rate and rhythm. ABDOMEN: Soft/non tender with no rebound tenderness. Bowel sounds were present. EXTREMITIES: 3+edema on both LE NEUROLOGIC: Alert and oriented x3. No focal deficit. No sensory deficit. Results Result Diagram: 10/07/18 0537 10/07/18 0537 Results 24hrs Laboratory Tests Test 10/06/18 16:58 10/06/18 17:01 10/06/18 21:19 10/07/18 00:14 Bedside Glucose 359 H 366 H 395 H 322 H Test 10/07/18 02:02 10/07/18 05:37 10/07/18 07:34 10/07/18 11:55 Bedside Glucose 263 H 209 198 White Blood Count 13.0 #H Red Blood Count 3.62 L Hemoglobin 10.5 L Hematocrit 33.4 L Mean Corpuscular 92.3 Volume Mean Corpuscular 29.0 Hemoglobin Mean Corpuscular 31.4 L Hemoglobin Concent Red Cell 15.9 H Distribution Width Platelet Count 372 Mean Platelet Volume 10.5 H Immature 1.000 H Granulocytes % Neutrophils % 65.6 Lymphocytes % 20.1 Monocytes % 9.9 Eosinophils % 2.5 Basophils % 0.9 Nucleated Red Blood 0.0 Cells % Immature 0.130 H Granulocytes # Neutrophils # 8.5 H Lymphocytes # 2.6 Monocytes # 1.3 H Eosinophils # 0.3 Basophils # 0.1 Nucleated Red Blood 0.0 Cells # Prothrombin Time 13.9 Prothrombin Time 1.1 Ratio INR International 1.06 Normalized Ratio Sodium Level 139 Potassium Level 4.7 Chloride Level 97 Carbon Dioxide Level 26 Anion Gap 16 H Blood Urea Nitrogen 48 H Creatinine 7.70 H Est Glomerular 7 L Filtrat Rate mL/min Glucose Level 199 Calcium Level 9.3 Phosphorus Level 3.8 Magnesium Level 2.2 Medications Medication Current Medications EZETIMIBE (Zetia) 10 mg DAILY PO Last administered on 10/06/18at 09:07; Admin Dose 10 MG; Start 09/25/18 at 09:00 Folic Acid (Folic Acid) 1 mg DAILY PO Last administered on 10/06/18 14:21; Admin Dose 1 MG; Start 09/25/18 at 09:00 Multivit/Ca Carb/ B Cmplx/FA/Prenat (Isabel-Brenda) 1 tab DAILY PO Last administered on 10/06/18 14:20; Admin Dose 1 TAB; Start 09/25/18 at 09:00 Sevelamer Carbonate (Renvela) 0.8 gm WITH MEALS PO Last administered on 10/06/18at 17:30; Admin Dose 0.8 GM; Start 09/24/18 at 17:55 IV Flush (NS 3 ml) 3 ml PER PROTOCOL IV ; Start 09/24/18 at 12:30 Ondansetron HCl (Zofran Tab) 4 mg Q6H PRN PO NAUSEA/VOMITING Last administered on 10/01/18 21:14; Admin Dose 4 MG; Start 09/24/18 at 12:30 Acetaminophen (Tylenol Tab) 650 mg Q6H PRN PO .PAIN 1-3 OR TEMP Last administered on 10/02/18at 21:27; Admin Dose 650 MG; Start 09/24/18 at 12:30 Diagnostic Test (Pha) (Accu-Chek) 1 ea 02 XX Last administered on 10/07/18 02:12; Admin Dose 1 EA; Start 09/25/18 at 02:00 Insulin Glargine (Lantus) 31 units DAILY@0800 SC Last administered on 10/06/18 07:58; Admin Dose 31 UNITS; Start 09/24/18 at 12:30 Miscellaneous Information 1 ea NOTE XX ; Start 09/24/18 at 13:30 Glucose (Glutose) 15 gm Q15M PRN PO DECREASED GLUCOSE; Start 09/24/18 at 13:30 Glucose (Glutose) 22.5 gm Q15M PRN PO DECREASED GLUCOSE; Start 09/24/18 at 13:30 Dextrose (D50w Syringe) 25 ml Q15M PRN IV DECREASED GLUCOSE; Start 09/24/18 at 13:30 Dextrose (D50w Syringe) 50 ml Q15M PRN IV DECREASED GLUCOSE; Start 09/24/18 at 13:30 Glucagon (Glucagen) 1 mg Q15M PRN IM DECREASED GLUCOSE; Start 09/24/18 at 13:30 Glucose (Glutose) 15 gm Q15M PRN BUCCAL DECREASED GLUCOSE; Start 09/24/18 at 13:30 Albumin Human 100 ml @ 100 mls/hr WITH DIALYSIS PRN IV SBP <90 DURING DIALYSIS; Start 09/24/18 at 18:30 Sodium Chloride (NS) -To prime the dialy... DIRECTED FOR HD PRN IV HD; Start 09/24/18 at 18:30 Atorvastatin Calcium (Lipitor) 40 mg HS PO Last administered on 10/06/18 21:21; Admin Dose 40 MG; Start 09/25/18 at 21:00 Docusate Sodium/ Ferrous Fumarate (Les-Sequels) 1 tab BID PO Last administered on 10/06/18 14:20; Admin Dose 1 TAB; Start 09/27/18 at 21:00; Stop 10/27/18 at 20:59 Furosemide (Lasix) 40 mg BID DIURETICS PO Last administered on 10/07/18 06:18; Admin Dose 40 MG; Start 09/26/18 at 18:00 Acetaminophen/ Hydrocodone Bitart ([place] (5/325)) 1 tab Q4H PRN PO PAIN LEVEL 1-5; Start 09/27/18 at 03:00 Acetaminophen/ Hydrocodone Bitart ([place] (5/325)) 2 tab Q4H PRN PO PAIN LEVEL 6-10 Last administered on 09/30/18 19:25; Admin Dose 2 TAB; Start 09/27/18 at 03:00 Nitroglycerin (Nitroglycerin (Sl Tab) 0.4 Mg) 1 tab Q5M PRN SL ANGINA Last administered on 09/28/18 06:05; Admin Dose 1 TAB; Start 09/28/18 at 03:30 Ipratropium [place] (Atrovent Hfa) 2 puff QID RESP THERAPY PRN INH SHORTNESS OF BREATH; Start 09/28/18 at 04:00 Levalbuterol (Xopenex Neb) 1.25 mg Q4H RESP THERAPY PRN HHN SHORTNESS OF BREATH; Start 09/28/18 at 04:00 Ascorbic Acid (Vitamin C) 500 mg BID PO Last administered on 10/06/18 14:21; Admin Dose 500 MG; Start 09/28/18 at 21:00; Stop 10/28/18 at 20:59 Sucralfate (Carafate Susp) 1 gm QID GTB Last administered on 10/06/18 21:20; Admin Dose 1 GM; Start 09/28/18 at 13:00; Stop 10/12/18 at 12:59 Isosorbide Mononitrate (Imdur) 60 mg DAILY PO Last administered on 10/06/18 09:07; Admin Dose 60 MG; Start 09/28/18 at 15:00 Aspirin (Aspirin) 81 mg DAILY PO Last administered on 10/06/18 09:07; Admin Dose 81 MG; Start 09/30/18 at 09:00 Zolpidem Tartrate (Ambien) 5 mg HS PRN PO INSOMNIA Last administered on 10/06/18 22:33; Admin Dose 5 MG; Start 09/30/18 at 00:00 Epoetin Jero-epbx (Retacrit) 6,000 unit MoWeFr@1700 SC Last administered on 10/06/18 17:32; Admin Dose 6,000 UNIT; Start 10/01/18 at 17:00 Guaifenesin/ Dextromethorphan (Robitussin Dm Liquid Cup) 10 ml Q4H PRN PO COUGH Last administered on 10/06/18 21:20; Admin Dose 10 ML; Start 10/03/18 at 17:00 Pantoprazole (Protonix Tab) 40 mg BID@0600,1800 PO Last administered on 10/07/18 06:17; Admin Dose 40 MG; Start 10/03/18 at 18:00 Insulin Aspart (Novolog Insulin Pen) (Adult SC Insulin - Mild Algorithm)... AC MEALS AND BEDTIME SC Last administered on 10/07/18 12:06; Admin Dose 2 UNIT; Start 10/03/18 at 21:00 Guaifenesin/ Dextromethorphan (Mucinex Dm) 1 tab BID PO Last administered on 10/06/18 21:20; Admin Dose 1 TAB; Start 10/06/18 at 10:00 RAQUEL MCDOWELL MD October 07, 2018 14:03
[2018-10-07] MEDS ORDERED: DOPamine-D5W 1.6 MG/ML 250 ML ONE (15:00)
[2018-10-07] MEDS ORDERED: NITROGLYCERIN 50 MG/D5W 250 ML BTL ONE (15:00)
[2018-10-07] MEDS ORDERED: ISOFLURANE 15 MIN ONE (15:00)
--- NOTE | 2018-10-07 15:14 | PREAC ---
Date/Time of Note Date/Time of Note DATE: 10/07/18 TIME: 15:12 Anesthesia Eval and Record Evaluation Time Pre-Procedure Interview DATE: 10/07/18 TIME: 15:12 Age 67 Sex male NPO: 8 hrs Preoperative diagnosis CAD, [place] Planned procedure CABG Past Medical History Past Medical History: Includes Cardio: HTN, Dyslipidemia Endo: Diabetes GI: Morbid obesity Surgery & Anesthesia Issues No known issue Meds Anticoagulation: Yes Beta Jesse within 24 hr: No Reason Beta Jesse not given: Pt. not on B-Jesse Reported Medications Clopidogrel Bisulfate (Clopidogrel) 75 Mg Tablet, 75 MG PO DAILY, #30 TAB 09/24/18 Ezetimibe* (Zetia*) 10 Mg Tablet, 10 MG PO DAILY, TAB 08/29/18 Insulin Lispro (Humalog Kwikpen U-100) 100 Unit/1 Ml Insuln.pen, 0 SQ SLIDING SCALE, EA 08/28/18 Insulin Glargine* (Lantus*) 100 Unit/Ml Soln, 0 SC QHS, #1 VIAL 45-52 UNITS 08/28/18 Metolazone* (Metolazone*) 5 Mg Tablet, 10 MG PO BID, TAB 08/28/18 Multivit/Ca Carb/B Cmplx/Fa* (Isabel-Bredna*) 1 Tab Tab, 1 TAB PO DAILY, TAB 08/28/18 Furosemide* (Furosemide*) 80 Mg Tablet, 160 MG PO BID, #60 TAB 08/28/18 Folic Acid* (Folic Acid*) 1 Mg Tablet, 1 MG PO DAILY, TAB 08/28/18 Apixaban* (Eliquis*) 5 Mg Tablet, 5 MG PO BID, TAB 08/28/18 Sevelamer Carbonate* (Renvela*) 800 Mg Tablet, 0.8 GM PO WITH MEALS, TAB 08/28/18 Current Medications EZETIMIBE (Zetia) 10 mg DAILY PO Last administered on 10/06/18at 09:07; Admin Dose 10 MG; Start 09/25/18 at 09:00 Folic Acid (Folic Acid) 1 mg DAILY PO Last administered on 10/06/18at 14:21; Admin Dose 1 MG; Start 09/25/18 at 09:00 Multivit/Ca Carb/ B Cmplx/FA/Prenat (Isabel-Brenda) 1 tab DAILY PO Last administered on 10/06/18 14:20; Admin Dose 1 TAB; Start 09/25/18 at 09:00 Sevelamer Carbonate (Renvela) 0.8 gm WITH MEALS PO Last administered on 10/06/18 17:30; Admin Dose 0.8 GM; Start 09/24/18 at 17:55 IV Flush (NS 3 ml) 3 ml PER PROTOCOL IV ; Start 09/24/18 at 12:30 Ondansetron HCl (Zofran Tab) 4 mg Q6H PRN PO NAUSEA/VOMITING Last administered on 10/01/18 21:14; Admin Dose 4 MG; Start 09/24/18 at 12:30 Acetaminophen (Tylenol Tab) 650 mg Q6H PRN PO .PAIN 1-3 OR TEMP Last administer ed on 10/02/18 21:27; Admin Dose 650 MG; Start 09/24/18 at 12:30 Diagnostic Test (Pha) (Accu-Chek) 1 ea 02 XX Last administered on 10/07/18 02:12; Admin Dose 1 EA; Start 09/25/18 at 02:00 Insulin Glargine (Lantus) 31 units DAILY@0800 SC Last administered on 10/06/18 07:58; Admin Dose 31 UNITS; Start 09/24/18 at 12:30 Miscellaneous Information 1 ea NOTE XX ; Start 09/24/18 at 13:30 Glucose (Glutose) 15 gm Q15M PRN PO DECREASED GLUCOSE; Start 09/24/18 at 13:30 Glucose (Glutose) 22.5 gm Q15M PRN PO DECREASED GLUCOSE; Start 09/24/18 at 13:30 Dextrose (D50w Syringe) 25 ml Q15M PRN IV DECREASED GLUCOSE; Start 09/24/18 at 13:30 Dextrose (D50w Syringe) 50 ml Q15M PRN IV DECREASED GLUCOSE; Start 09/24/18 at 13:30 Glucagon (Glucagen) 1 mg Q15M PRN IM DECREASED GLUCOSE; Start 09/24/18 at 13:30 Glucose (Glutose) 15 gm Q15M PRN BUCCAL DECREASED GLUCOSE; Start 09/24/18 at 13:30 Albumin Human 100 ml @ 100 mls/hr WITH DIALYSIS PRN IV SBP <90 DURING DIALYSIS; Start 09/24/18 at 18:30 Sodium Chloride (NS) -To prime the dialy... DIRECTED FOR HD PRN IV HD; Start 09/24/18 at 18:30 Atorvastatin Calcium (Lipitor) 40 mg HS PO Last administered on 10/06/18 21:21; Admin Dose 40 MG; Start 09/25/18 at 21:00 Docusate Sodium/ Ferrous Fumarate (Les-Sequels) 1 tab BID PO Last administered on 10/06/18 14:20; Admin Dose 1 TAB; Start 09/27/18 at 21:00; Stop 10/27/18 at 20:59 Furosemide (Lasix) 40 mg BID DIURETICS PO Last administered on 10/07/18 06:18; Admin Dose 40 MG; Start 09/26/18 at 18:00 Acetaminophen/ Hydrocodone Bitart ([place] (5/325)) 1 tab Q4H PRN PO PAIN LEVEL 1-5; Start 09/27/18 at 03:00 Acetaminophen/ Hydrocodone Bitart ([place] (5/325)) 2 tab Q4H PRN PO PAIN LEVEL 6-10 Last administered on 09/30/18 19:25; Admin Dose 2 TAB; Start 09/27/18 at 03:00 Nitroglycerin (Nitroglycerin (Sl Tab) 0.4 Mg) 1 tab Q5M PRN SL ANGINA Last administered on 09/28/18 06:05; Admin Dose 1 TAB; Start 09/28/18 at 03:30 Ipratropium [place] (Atrovent Hfa) 2 puff QID RESP THERAPY PRN INH SHORTNESS OF BREATH; Start 09/28/18 at 04:00 Levalbuterol (Xopenex Neb) 1.25 mg Q4H RESP THERAPY PRN HHN SHORTNESS OF BREAT H; Start 09/28/18 at 04:00 Ascorbic Acid (Vitamin C) 500 mg BID PO Last administered on 10/06/18 14:21; Admin Dose 500 MG; Start 09/28/18 at 21:00; Stop 10/28/18 at 20:59 Sucralfate (Carafate Susp) 1 gm QID GTB Last administered on 10/06/18 21:20; Admin Dose 1 GM; Start 09/28/18 at 13:00; Stop 10/12/18 at 12:59 Isosorbide Mononitrate (Imdur) 60 mg DAILY PO Last administered on 10/06/18 09:07; Admin Dose 60 MG; Start 09/28/18 at 15:00 Aspirin (Aspirin) 81 mg DAILY PO Last administered on 10/06/18 09:07; Admin Dose 81 MG; Start 09/30/18 at 09:00 Zolpidem Tartrate (Ambien) 5 mg HS PRN PO INSOMNIA Last administered on 10/06/18 22:33; Admin Dose 5 MG; Start 09/30/18 at 00:00 Epoetin Jero-epbx (Retacrit) 6,000 unit MoWeFr@1700 SC Last administered on 10/06/18 17:32; Admin Dose 6,000 UNIT; Start 10/01/18 at 17:00 Guaifenesin/ Dextromethorphan (Robitussin Dm Liquid Cup) 10 ml Q4H PRN PO COUGH Last administered on 10/06/18 21:20; Admin Dose 10 ML; Start 10/03/18 at 17:00 Pantoprazole (Protonix Tab) 40 mg BID@0600,1800 PO Last administered on 10/07/18 06:17; Admin Dose 40 MG; Start 10/03/18 at 18:00 Insulin Aspart (Novolog Insulin Pen) (Adult SC Insulin - Mild Algorithm)... AC MEALS AND BEDTIME SC Last administered on 10/07/18 12:06; Admin Dose 2 UNIT; Start 10/03/18 at 21:00 Guaifenesin/ Dextromethorphan (Mucinex Dm) 1 tab BID PO Last administered on 10/06/18 21:20; Admin Dose 1 TAB; Start 10/06/18 at 10:00 Meds reviewed: Yes Allergies Coded Allergies: No Known Allergies (Verified Allergy, Mild, 09/24/18) Allergies Reviewed: Yes Labs/Studies Labs Reviewed: Reviewed by anesthesiologist Result Diagram: 10/07/1837 10/07/1837 Laboratory Tests 10/07/18 05:37 test: N/A Pre-procedure Exam Last vitals Vital Signs Date Temp Pulse Resp B/P (MAP) Pulse Ox O2 O2 Flow FiO2 Time Delivery Rate 10/07/18 62 12:24 10/07/18 Room Air 12:09 10/07/18 97.6 18 112/58 96 11:08 (76) Airway: Adequate mouth opening, Adequate thyromental dist Mallampati: Mallampati III Teeth: Normal Lung: Normal Heart: Abnormal (CAD) ASA Physical Status ASA physical status: 4 Emergency: None Planned Anesthetic General/MAC: ETT Planned Pain Management Parenteral pain med (CAD, ) Pre-operative Attestations Prior to commencing anesthesia and surgery, the patient was re-evaluated, there was verification of: *The patient's identity *The results of appropriate recent lab work and preoperative vital signs *The above evaluation not changing prior to induction *Anesthetic plan, risk benefits, alternative and complications discussed with patient/family; questions answered; patient/family understands, accepts and wishes to proceed. KATE RAVI MD October 07, 2018 15:14
--- NOTE | 2018-10-07 15:16 | HPN ---
Date/Time of Note Date/Time of Note DATE: 10/07/18 TIME: 15:15 Interval H&P Admission Note Pt. seen H&P reviewed: No system changes LESLIE WESTON MD October 07, 2018 15:16
[2018-10-07] MEDS ORDERED: MIDAZOLAM 5 ML ONE ×2 (15:24→17:55)
[2018-10-07] MEDS ORDERED: MAGNESIUM SULFATE (MG) 50% 10 ML INJ ONE (15:32)
[2018-10-07] MEDS ORDERED: HEPARIN 1000 UNITS/ML 10 ML INJ ONE ×2 (15:32→15:36)
[2018-10-07] MEDS ORDERED: CA CHLORIDE 10% 10 ML SYRINGE ONE (15:33)
[2018-10-07] MEDS ORDERED: POTASSIUM CHLORIDE 40 MEQ INJ ONE (15:33)
[2018-10-07] MEDS ORDERED: LIDOCAINE 100 MG SYRINGE ONE (15:33)
[2018-10-07] MEDS ORDERED: PHENYLephrine 10 MG INJ ONE (15:35)
[2018-10-07] MEDS ORDERED: THROMBIN 20,000 UNIT VIAL ONE (15:36)
[2018-10-07] MEDS ORDERED: ALBUMIN HUMAN 25% 100 ML ONE (15:36)
[2018-10-07] MEDS ORDERED: VANCOMYCIN 1 GM INJ ONE (15:36)
[2018-10-07] MEDS ORDERED: SURGIFOAM POWDER 1 GM KIT ONE (15:36)
[2018-10-07] MEDS ORDERED: AMINOCAPROIC ACID 5 GM INJ ONE ×4 (15:36→19:28)
[2018-10-07] MEDS ORDERED: PAPAVERINE 60 MG INJ ONE (15:36)
[2018-10-07] MEDS ORDERED: MANNITOL 20% 500 ML ONE (15:36)
--- NOTE | 2018-10-07 16:47 | CONS ---
Assessment/Plan Assessment/Plan Hospital Course (Demo Recall) NSTEMI: chest pain 09/28 3 am and none since. Trop peak 1.1 and trended down. S/p cath 09/30/18 with diffuse multivessel CAD best suitable for CABG for this diabetic pt. Seen by cardiac surgery. CABG today Upper GI bleed: due to anastomotic ulcer seen on EGD 09/26. No bleeding since even on heparin drip. Black stools but on iron and stool occult negative. Hgb stable. Anemia: due to above. s/p 5 units PRBCs. Stable Wenckebach: [place] 1. Not on BB. No pauses or high grade block. 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 Now stopped DM ESRD on HD MWF HTN H/o [place] -CABG today -ASA 81mg daily -continue imdur 60mg -lipitor 40mg -lasix 40mg PO BID -HD per nephrology Consultation Date/Type/Reason Admit Date/Time September 24, 2018 at 08:08 Initial Consult Date 09/24/18 Type of Consult Cardiology Requesting Provider: LAVON SEE Date/Time of Note DATE: 10/07/18 TIME: 16:47 24 HR Interval Summary Free Text/Dictation No events. To have CABG this afternoon Exam/Review of Systems Vital Signs Vitals Vital Signs Date Temp Pulse Resp B/P (MAP) Pulse Ox O2 O2 Flow FiO2 Time Delivery Rate 10/07/18 62 12:24 10/07/18 Room Air 12:09 10/07/18 97.6 18 112/58 96 11:08 (76) Intake and Output 10/06/18 10/06/18 10/07/18 1515:00 23:00 07:00 IntakeIntake Total 1500 ml 300 ml OutputOutput Total 3600 ml BalanceBalance -3600 ml 1500 ml 300 ml Labs Result Diagram: 10/07/18 0537 10/07/18 0537 Results 24hrs Laboratory Tests Test 10/06/18 16:58 10/06/18 17:01 10/06/18 21:19 10/07/18 00:14 Bedside Glucose 359 H 366 H 395 H 322 H Test 10/07/18 02:02 10/07/18 05:37 10/07/18 07:34 10/07/18 11:55 Bedside Glucose 263 H 209 198 White Blood Count 13.0 #H Red Blood Count 3.62 L Hemoglobin 10.5 L Hematocrit 33.4 L Mean Corpuscular 92.3 Volume Mean Corpuscular 29.0 Hemoglobin Mean Corpuscular 31.4 L Hemoglobin Concent Red Cell 15.9 H Distribution Width Platelet Count 372 Mean Platelet Volume 10.5 H Immature 1.000 H Granulocytes % Neutrophils % 65.6 Lymphocytes % 20.1 Monocytes % 9.9 Eosinophils % 2.5 Basophils % 0.9 Nucleated Red Blood 0.0 Cells % Immature 0.130 H Granulocytes # Neutrophils # 8.5 H Lymphocytes # 2.6 Monocytes # 1.3 H Eosinophils # 0.3 Basophils # 0.1 Nucleated Red Blood 0.0 Cells # Prothrombin Time 13.9 Prothrombin Time 1.1 Ratio INR International 1.06 Normalized Ratio Sodium Level 139 Potassium Level 4.7 Chloride Level 97 Carbon Dioxide Level 26 Anion Gap 16 H Blood Urea Nitrogen 48 H Creatinine 7.70 H Est Glomerular 7 L Filtrat Rate mL/min Glucose Level 199 Calcium Level 9.3 Phosphorus Level 3.8 Magnesium Level 2.2 Medications Medications Current Medications EZETIMIBE (Zetia) 10 mg DAILY PO Last administered on 10/06/18at 09:07; Admin Dose 10 MG; Start 09/25/18 at 09:00 Folic Acid (Folic Acid) 1 mg DAILY PO Last administered on 10/06/18at 14:21; Admin Dose 1 MG; Start 09/25/18 at 09:00 Multivit/Ca Carb/ B Cmplx/FA/Prenat (Isabel-Brenda) 1 tab DAILY PO Last administered on 10/06/18at 14:20; Admin Dose 1 TAB; Start 09/25/18 at 09:00 Sevelamer Carbonate (Renvela) 0.8 gm WITH MEALS PO Last administered on 10/06/18at 17:30; Admin Dose 0.8 GM; Start 09/24/18 at 17:55 IV Flush (NS 3 ml) 3 ml PER PROTOCOL IV ; Start 09/24/18 at 12:30 Ondansetron HCl (Zofran Tab) 4 mg Q6H PRN PO NAUSEA/VOMITING Last administered on 10/01/18 21:14; Admin Dose 4 MG; Start 09/24/18 at 12:30 Acetaminophen (Tylenol Tab) 650 mg Q6H PRN PO .PAIN 1-3 OR TEMP Last administered on 10/02/18 21:27; Admin Dose 650 MG; Start 09/24/18 at 12:30 Diagnostic Test (Pha) (Accu-Chek) 1 ea 02 XX Last administered on 10/07/18 02:12; Admin Dose 1 EA; Start 09/25/18 at 02:00 Insulin Glargine (Lantus) 31 units DAILY@0800 SC Last administered on 10/06/18 07:58; Admin Dose 31 UNITS; Start 09/24/18 at 12:30 Miscellaneous Information 1 ea NOTE XX ; Start 09/24/18 at 13:30 Glucose (Glutose) 15 gm Q15M PRN PO DECREASED GLUCOSE; Start 09/24/18 at 13:30 Glucose (Glutose) 22.5 gm Q15M PRN PO DECREASED GLUCOSE; Start 09/24/18 at 13:30 Dextrose (D50w Syringe) 25 ml Q15M PRN IV DECREASED GLUCOSE; Start 09/24/18 at 13:30 Dextrose (D50w Syringe) 50 ml Q15M PRN IV DECREASED GLUCOSE; Start 09/24/18 at 13:30 Glucagon (Glucagen) 1 mg Q15M PRN IM DECREASED GLUCOSE; Start 09/24/18 at 13:30 Glucose (Glutose) 15 gm Q15M PRN BUCCAL DECREASED GLUCOSE; Start 09/24/18 at 13:30 Albumin Human 100 ml @ 100 mls/hr WITH DIALYSIS PRN IV SBP <90 DURING DIALYSIS; Start 09/24/18 at 18:30 Sodium Chloride (NS) -To prime the dialy... DIRECTED FOR HD PRN IV HD; Start 09/24/18 at 18:30 Atorvastatin Calcium (Lipitor) 40 mg HS PO Last administered on 10/06/18 21:21; Admin Dose 40 MG; Start 09/25/18 at 21:00 Docusate Sodium/ Ferrous Fumarate (Les-Sequels) 1 tab BID PO Last administered on 10/06/18 14:20; Admin Dose 1 TAB; Start 09/27/18 at 21:00; Stop 10/27/18 at 20:59 Furosemide (Lasix) 40 mg BID DIURETICS PO Last administered on 10/07/18 06:18; Admin Dose 40 MG; Start 09/26/18 at 18:00 Acetaminophen/ Hydrocodone Bitart ([place] (5/325)) 1 tab Q4H PRN PO PAIN LEVEL 1-5; Start 09/27/18 at 03:00 Acetaminophen/ Hydrocodone Bitart ([place] (5/325)) 2 tab Q4H PRN PO PAIN LEVEL 6-10 Last administered on 09/30/18 19:25; Admin Dose 2 TAB; Start 09/27/18 at 03:00 Nitroglycerin (Nitroglycerin (Sl Tab) 0.4 Mg) 1 tab Q5M PRN SL ANGINA Last administered on 09/28/18 06:05; Admin Dose 1 TAB; Start 09/28/18 at 03:30 Ipratropium [place] (Atrovent Hfa) 2 puff QID RESP THERAPY PRN INH SHORTNESS OF BREATH; Start 09/28/18 at 04:00 Levalbuterol (Xopenex Neb) 1.25 mg Q4H RESP THERAPY PRN HHN SHORTNESS OF BREATH; Start 09/28/18 at 04:00 Ascorbic Acid (Vitamin C) 500 mg BID PO Last administered on 10/06/18 14:21; Admin Dose 500 MG; Start 09/28/18 at 21:00; Stop 10/28/18 at 20:59 Sucralfate (Carafate Susp) 1 gm QID GTB Last administered on 10/06/18 21:20; Admin Dose 1 GM; Start 09/28/18 at 13:00; Stop 10/12/18 at 12:59 Isosorbide Mononitrate (Imdur) 60 mg DAILY PO Last administered on 10/06/18 09:07; Admin Dose 60 MG; Start 09/28/18 at 15:00 Aspirin (Aspirin) 81 mg DAILY PO Last administered on 10/06/18 09:07; Admin Dose 81 MG; Start 09/30/18 at 09:00 Zolpidem Tartrate (Ambien) 5 mg HS PRN PO INSOMNIA Last administered on 10/06/18 22:33; Admin Dose 5 MG; Start 09/30/18 at 00:00 Epoetin Jero-epbx (Retacrit) 6,000 unit MoWeFr@1700 SC Last administered on 10/06/18 17:32; Admin Dose 6,000 UNIT; Start 10/01/18 at 17:00 Guaifenesin/ Dextromethorphan (Robitussin Dm Liquid Cup) 10 ml Q4H PRN PO COUGH Last administered on 10/06/18 21:20; Admin Dose 10 ML; Start 10/03/18 at 17:00 Pantoprazole (Protonix Tab) 40 mg BID@0600,1800 PO Last administered on 10/07/18 06:17; Admin Dose 40 MG; Start 10/03/18 at 18:00 Insulin Aspart (Novolog Insulin Pen) (Adult SC Insulin - Mild Algorithm)... AC MEALS AND BEDTIME SC Last administered on 10/07/18at 12:06; Admin Dose 2 UNIT; Start 10/03/18 at 21:00 Guaifenesin/ Dextromethorphan (Mucinex Dm) 1 tab BID PO Last administered on 10/06/18 21:20; Admin Dose 1 TAB; Start 10/06/18 at 10:00 LAVON SEE October 07, 2018 16:47
[2018-10-07] MEDS ORDERED: CEFAZOLIN 1 GM INJ ONE (17:09)
[2018-10-07] MEDS ORDERED: FUROSEMIDE 10 ML ONE ×2 (17:15→21:03)
[2018-10-07] MEDS ORDERED: HEPARIN 10,000 UNITS/ML 1 ML INJ ONE (17:23)
[2018-10-07] MEDS ORDERED: PROTAMINE 250 MG INJ ONE (19:27)
[2018-10-07] MEDS ORDERED: POTASSIUM CHLORIDE 50 ML IVPB PRN (21:00)
[2018-10-07] MEDS ORDERED: MAGNESIUM SULFATE 1 GM/D5W 100 ML IVPB PRN (21:00)
[2018-10-07] MEDS ORDERED: DEXTROSE 50% 50 ML SYRINGE IV PRN ×2 (21:00)
[2018-10-07] MEDS ORDERED: NITROGLYCERIN 50 MG/D5W (PMX) 250 ML IV SCH ×2 (21:00→22:00)
[2018-10-07] MEDS ORDERED: HYDROmorphONE 0.5 MG/0.5 ML SYG IV PRN (21:00)
[2018-10-07] MEDS ORDERED: DOPamine-D5W 1.6 MG/ML 250 ML IV SCH ×2 (21:00→22:00)
[2018-10-07] MEDS ORDERED: LIDOCAINE 2% (SDV) 5 ML INJ ONE (21:01)
[2018-10-07] MEDS ORDERED: ROCURONIUM 50 MG INJ ONE ×2 (21:01)
[2018-10-07] MEDS ORDERED: ETOMIDATE 20 MG INJ ONE (21:01)
[2018-10-07] MEDS ORDERED: EPHEDrine 25 MG/5 ML SYG IV PRN (21:30)
[2018-10-07] MEDS ORDERED: DIPHENHYDRAMINE 50 MG INJ IV PRN (21:30)
[2018-10-07] MEDS ORDERED: ALBUMIN HUMAN 5% 250 ML IV PRN (21:30)
[2018-10-07] MEDS ORDERED: ONDANSETRON 4 MG INJ IV PRN (21:30)
[2018-10-07] MEDS ORDERED: FENTAnyl 50 MCG/ML VIAL IV PRN ×2 (21:30)
[2018-10-07] MEDS ORDERED: MEPERIDINE 25 MG INJ IV PRN (21:30)
[2018-10-07] MEDS ORDERED: morphine 2 MG INJ IV PRN ×2 (21:30)
[2018-10-07] MEDS: PROPOFOL 100 ML IV SCH (21:30)
--- NOTE | 2018-10-07 21:35 | PAC ---
Date/Time of Note Date/Time of Note DATE: 10/07/18 TIME: 21:35 Post-Anesthesia Notes Post-Anesthesia Note Last documented vital signs Vital Signs Date Temp Pulse Resp B/P (MAP) Pulse Ox O2 O2 Flow FiO2 Time Delivery Rate 10/07/18 62 12:24 10/07/18 Room Air 12:09 10/07/18 97.6 18 112/58 96 11:08 (76) Activity: WNL Respiratory function: WNL Cardiovascular function: WNL Mental status: Baseline Pain reasonably controlled: Yes Hydration appropriate: Yes Nausea/Vomiting absent: Yes Comments BP:134/67, P:100, Spo2:100%, T:99,4 KATE RAVI MD October 07, 2018 21:35
[2018-10-07] MEDS ORDERED: INSULIN HUMAN REGULAR 100 UNIT in SOD CHLORIDE 0.9% 99 ML IV SCH (22:00)
[2018-10-07] MEDS ORDERED: MIDAZOLAM 1 MG/ML 2 ML INJ IV PRN (22:00)
[2018-10-07] MEDS ORDERED: POTASSIUM CHLORIDE 40 MEQ, CALCIUM CHLORIDE 10% 1 GM in DEXTROSE 5%-0.225% NACL 1,000 ML IV SCH (22:00)
[2018-10-07] MEDS ORDERED: LORAZEPAM 2 MG INJ IV PRN (22:00)
[2018-10-07] MEDS: CEFAZOLIN 1 GM/50 ML (PMX) 50 ML IVPB SCH (22:25)
[2018-10-08] VITALS (107 sets, daily range): BP systolic 75–139; BP diastolic 40–94; PULSE 80–106; RESP 14–27; TEMP 99.3–101.4
[2018-10-08] MEDS: HYDROmorphONE 0.5 MG/0.5 ML SYG IV PRN ×2 (00:15→03:09)
[2018-10-08] MEDS: ACCU-CHEK XX SCH ×24 (00:22→23:00)
[2018-10-08] MEDS ORDERED: NORepinephrine 8MG/250 ML (PMX 250 ML ONE (02:55)
[2018-10-08] MEDS ORDERED: NORepinephrine 8MG/250 ML (PMX 250 ML IV SCH (03:00)
--- NOTE | 2018-10-08 03:04 | OPR ---
DATE OF OPERATION: 10/07/2018 PREOPERATIVE DIAGNOSIS: Three-vessel coronary artery disease, non-STEMI. POSTOPERATIVE DIAGNOSIS: Three-vessel coronary artery disease, non-STEMI. PROCEDURE: CABG x4, ÁLVAREZ to LAD, SVG to ramus, SVG to OM1 sequenced to OM2, endoscopic vein harvesti ng, epiaortic scanning of the ascending aorta. SURGEON: Leslie Weston MD. PEDIGREE RESEARCHER: Rod Mejia MD. SECOND BUILDING CONSTRUCTION ESTIMATOR: Velia Penny MUSIC ORCHESTRATOR. ANESTHESIOLOGIST: Iván Armstrong MD. TYPE OF ANESTHESIA: General endotracheal. COMPLICATIONS: None. FINDINGS: LV function was good pre- and post-revascularization. The flow in the ramus was 23 mL per minute. The flow in the OM1 and 2 was 44 mL per minute and the flow in the LAD was 45 mL per minute . Cardiopulmonary bypass time was 78 minutes. Crossclamp time was 60 minutes. His OM2 was a diffus wilson diseased vessel, 1.5 mm vessel, OM1 was a 1.75 mm vessel. His ramus was a 2 mm vessel and his LA D was a 2 mm vessel. INDICATION: The patient is a 67-year-old male with end-stage renal failure and admitted with a GI bl eed. He ended up having a non-STEMI. He underwent angiogram, which showed severe 3-vessel coronary artery disease. He is referred for urgent CABG. Risks, benefits and alternatives were explained to the patient, his son and . He understood and consented. DESCRIPTION OF PROCEDURE: The patient was brought to the operating room, was placed in supine positi on. He was induced and underwent general endotracheal intubation without complications. Lines were placed. Antibiotics were given. He was prepped and draped in usual sterile fashion. Median sternot adam was made simultaneous to endoscopic vein harvesting from the left lower extremity. ÁLVAREZ was take n down using clips and cautery. Heparin was given. The pericardial well was established. The ascen ding aorta was scanned. There are no atheromas or plaques. Pursestring was placed in the ascending aorta followed by the right atrium. We cannulated the ascending aorta followed by 2-stage venous can nula. We placed in the ascending aortic vent. Once all our lines were in place, we commenced cardio pulmonary bypass. We placed a crossclamp and arrested the heart using antegrade cardioplegia and top ical ice. Once the heart was arrested, we identified OM1 and 2. We made an arteriotomy in OM2 and a nastomosed our vein graft using 7-0 Prolene in running fashion in end-to-side manner. We then did a ajel-lm-mjgi anastomosis to OM1 using 7-0 Prolene. We then cut the vein graft to length. We identif ied the ramus, made arteriotomy, extended with Chery scissors, anastomosed our vein graft using 7-0 P rolene in running fashion in end-to-side manner. We then identified the LAD, made arteriotomy, exten ded with Chery scissors, anastomosed our ÁLVAREZ using 7-0 Prolene in a running fashion in end-to-side m marcus. We rewarmed the patient, gave warm blood, removed the crossclamp and placed a ventricular wir e. He regained normal sinus rhythm. We placed a partial clamp on the ascending aorta, made 2 aortot omies, anastomosed our vein graft using 5-0 Prolene in running fashion in end-to-side manner. Partia l clamp was removed. Vein grafts were deaired. Distal hemostasis was achieved. We began ventilatin g and then weaned the patient off cardiopulmonary bypass. Protamine was given. He was de-lined. We placed bilateral pleural tubes and anterior mediastinal tube. Once hemostasis was achieved, we clos ed the chest using interrupted cables followed by closure of the fascia using 0 Vicryl and the skin u sing 4-0 Monocryl in subcuticular fashion. Lower extremity incisions were closed using 3-0 Vicryl fo r the deep layer and 4-0 Monocryl for the skin. Dressings were applied. Patient was taken to the U in critical, but stable condition. Dictated By: LESLIE WESTON MD AA/NTS Conf#: [id number] DID#: [id number] CC: LAVON SEE MD; RAQUEL MCDOWELL MD; CAREN BULL MD; AUGUST LUCIANO MD;*EndCC*
[2018-10-08] MEDS ORDERED: ALBUTEROL 0.083% (NEB) 2.5 MG/3 ML AMP HHN STA (06:25)
[2018-10-08] MEDS ORDERED: CALCIUM GLUCONATE 10% 1 GM in DEXTROSE 5% 100 ML IVPB SCH (07:00)
[2018-10-08] MEDS ORDERED: FAMOTIDINE 20 MG INJ ONE (07:46)
[2018-10-08] MEDS: ACETAMINOPHEN 1000MG/100ML IV 100 ML IVPB SCH ×2 (07:51→13:26)
--- NOTE | 2018-10-08 08:35 | CONS ---
Assessment/Plan Assessment/Plan Assessment/Plan (Daily) 1. acute Hyperkalemia due to GI bleeding- resolved 2.Acute fluid overload with Uremia BUN 111 on admission 3. acute GI bleeding causing acute blood loss anemia- S/p Status post EGD/colonoscopy 09/27/19 -Anastomosis ulcer -Normal colonoscopy 4. Severe Anemia with Hb 5.8 on admission s/p 5 U PRBC transfusion for GI bleeding during this admission 5. H/O HTN 6. H/O peripherla vascular disease 7. ESRD on HD -follow up at [facility] [place] scheduled HD on MW 8. acute NSTEMI s/p LHC on 09/30/18 that showed 3 V CAD- s/p CABG on 10/07/18 Plan: s/p CABG on 09/27/18- post op remains intubatd for today Gave Calcum gluconate and Breating Rx for hyperkalemia in AM, Will plan for HD stat for acute hyperkalemia. BMP post HD at 5 pm Lasix 40mg pO BID Ventilator plan as per CT surgery and pulmonary will follow up Consultation Date/Type/Reason Admit Date/Time September 24, 2018 at 08:08 Initial Consult Date 09/24/18 Type of Consult NEPHROLOGY Requesting Provider: LAVON SEE Date/Time of Note DATE: 10/08/18 TIME: 08:35 24 HR Interval Summary Free Text/Dictation remains intubated post op, K was high Today AM, Calcium gluconate and Albuterol breathing RX given BP stable Exam/Review of Systems Exam Vitals Vital Signs Date Temp Pulse Resp B/P (MAP) Pulse Ox O2 O2 Flow FiO2 Time Delivery Rate 10/08/18 101.4 07:51 10/08/18 82 14 100/47 100 07:00 (64) 10/08/18 55 05:20 10/07/18 Room Air 12:09 Intake and Output 10/07/18 10/07/18 10/08/18 1515:00 23:00 07:00 IntakeIntake Total 2527 ml 724.875 ml OutputOutput Total 470 ml 210 ml BalanceBalance 2057 ml 514.875 ml Constitutional: other (On ventilator, Moderate distress ) Psych: no complaints ENMT: intubated Neck: jvd Respiratory: crackles/rales, diminished breath sounds Cardiovascular: regular rate and rhythm, nl pulses Gastrointestinal: soft, non-tender Musculoskeletal: swelling Extremities: normal pulses 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: other (sedated, intubatd on ventilator ) Lymph: nl lymph nodes Results Result Diagram: 10/08/18 0500 10/08/18 0500 Results 24hrs Laboratory Tests Test 10/07/18 11:55 10/07/18 20:56 10/07/18 21:43 10/07/18 22:21 Bedside Glucose 198 158 Blood Gas Blood arterial Blood venous Specimen Source Arterial Blood 10/07/2018 10:13 10/07/2018 10:13 Date Drawn :00 PM :00 PM Arterial Blood 7.348 L pH (Temp corrected) Arterial Blood 38.2 pCO2 (Temp correct) Arterial Blood 139.2 H pO2 (Temp corrected) Arterial Blood 20.5 L HCO3 Arterial Blood -4.6 L Base Excess Arterial Blood 98.4 H Oxygen Saturatio n Eamon Test N/A N/A Arterial Blood A-Line VENOUS LINE Gas Puncture Site Arterial 0.3 Blood Carboxyhem oglobin Arterial Blood 0.2 Methemoglobin Blood Gas A-a O2 318.8 H Differential Oxyhemoglobin 97.9 Percent Blood Gas 37.0 37.0 Temperature Blood Gas 14.0 14.0 Respiration Rate Blood Gas Actual 14 14 Respiration Rate Blood Gas VENT - AC VENT - AC Modality FiO2 70.0 70.0 Blood Gas Tidal 550.0 550.0 Volume Blood Gas Low 5.0 5.0 PEEP Setting Blood Gas 25.0 25.0 Inspiratory Pressure Blood Gas RTR RTR Notified Whom Blood Gas 10/07/2018 10:26 10/07/2018 10:26 Notified Time :00 PM :00 PM Venous Blood pH 7.309 L Venous Blood 45.0 pCO2 (Temp Corrected) Venous Blood pO2 33.2 H (Temp Corrected) Venous Blood 22.1 HCO3 Venous Blood 61.3 Oxygen Saturation Venous Blood -4.1 Base Excess Venous Blood 11.1 Total Hemoglobin Venous Blood 60.9 Oxyhemoglobin Venous Blood 0.3 Methemoglobin Carboxyhemoglobi 0.4 n Test 10/07/18 22:34 10/07/18 23:11 10/08/18 00:20 10/08/18 02:01 White Blood 16.9 #H Count Red Blood Count 3.46 L Hemoglobin 10.2 L Hematocrit 31.5 L Mean Corpuscular 91.0 Volume Mean Corpuscular 29.5 Hemoglobin Mean Corpuscular 32.4 Hemoglobin Nely nt Red Cell 15.2 H Distribution Width Platelet Count 231 # Mean Platelet 10.4 Volume Immature 1.100 H Granulocytes % Neutrophils % 77.5 H Lymphocytes % 12.2 L Monocytes % 7.4 Eosinophils % 1.3 Basophils % 0.5 Nucleated Red 0.0 Blood Cells % Immature 0.180 H Granulocytes # Neutrophils # 13.1 H Lymphocytes # 2.1 Monocytes # 1.3 H Eosinophils # 0.2 Basophils # 0.1 Nucleated Red 0.0 Blood Cells # Prothrombin Time 17.2 #H Prothrombin Time 1.3 Ratio INR 1.39 International Normalized Ratio Activated 30.9 Partial Thrombop last Time Sodium Level 138 Potassium Level 4.4 Chloride Level 102 Carbon Dioxide 20 L Level Anion Gap 16 H Blood Urea 49 H Nitrogen Creatinine 7.59 H Est Glomerular 7 L Filtrat Rate mL/min Glucose Level 163 Calcium Level 8.5 Magnesium Level 3.3 H Bedside Glucose 156 161 178 Test 10/08/18 03:52 10/08/18 04:55 10/08/18 05:00 10/08/18 05:00 Bedside Glucose 189 192 White Blood 17.6 H Count Red Blood Count 3.25 L Hemoglobin 9.6 L Hematocrit 30.1 L Mean Corpuscular 92.6 Volume Mean Corpuscular 29.5 Hemoglobin Mean Corpuscular 31.9 L Hemoglobin Nely nt Red Cell 15.7 H Distribution Width Platelet Count 276 Mean Platelet 11.3 H Volume Immature 1.300 H Granulocytes % Neutrophils % 88.7 H Lymphocytes % 3.3 L Monocytes % 6.1 Eosinophils % 0.1 Basophils % 0.5 Nucleated Red 0.0 Blood Cells % Immature 0.230 H Granulocytes # Neutrophils # 15.6 H Lymphocytes # 0.6 L Monocytes # 1.1 H Eosinophils # 0.0 Basophils # 0.1 Nucleated Red 0.0 Blood Cells # Prothrombin Time 16.4 H Prothrombin Time 1.3 Ratio INR 1.31 International Normalized Ratio Activated 32.8 Partial Thrombop last Time Sodium Level 138 Potassium Level 6.1 *H Chloride Level 103 Carbon Dioxide 20 L Level Anion Gap 15 H Blood Urea 51 H Nitrogen Creatinine 8.28 H Est Glomerular 7 L Filtrat Rate mL/min Glucose Level 189 Calcium Level 9.0 Magnesium Level 3.1 H Lab Scanned BLOOD TRANSFUSI Report ON Test 10/08/18 05:55 10/08/18 06:49 10/08/18 08:10 Bedside Glucose 167 144 122 Medications Medication Current Medications Diagnostic Test (Pha) (Accu-Chek) 1 ea Q1H XX Last administered on 10/08/18at 08:12; Admin Dose 1 EA; Start 10/07/18 at 22:00 Insulin Human Regular 100 unit/ Sodium Chloride 100 ml @ 0 mls/hr PER PROTOCOL IV Last administered on 10/07/18at 22:30; Admin Dose 2 MLS/HR; Start 10/07/18 at 22:00 Miscellaneous Information (* Miscellaneous Pharmacy Order) Treatment of Hypogly cemia: 1.BG 51... Per protocol XX ; Start 10/07/18 at 21:00 Dextrose (D50w Syringe) 25 ml Q15M PRN IV .DECREASED GLUCOSE; Start 10/07/18 at 21:00 Dextrose (D50w Syringe) 50 ml Q15M PRN IV .DECREASED GLUCOSE; Start 10/07/18 at 21:00 Cefazolin Sodium 50 ml @ 100 mls/hr Q12H IVPB Last administered on 10/07/18at 22:25; Admin Dose 100 MLS/HR; Start 10/07/18 at 21:00; Stop 10/08/18 at 21:29 Hydromorphone HCl (Dilaudid) 0.2 mg Q15M PRN IV PAIN LEVEL 1-5; Start 10/07/18 at 21:00 Hydromorphone HCl (Dilaudid) 0.4 mg Q15M PRN IV PAIN LEVEL 6-10 Last administered on 10/08/18at 03:09; Admin Dose 0.4 MG; Start 10/07/18 at 21:00 Oxycodone/ Acetaminophen (Percocet (5/ 325)) 1 tab Q3H PRN PO PAIN LEVEL 1-5; Start 10/07/18 at 21:00 Oxycodone/ Acetaminophen (Percocet (5/ 325)) 2 tab Q3H PRN PO PAIN LEVEL 6-10; Start 10/07/18 at 21:00 Ondansetron HCl (Zofran Inj) 4 mg Q6H PRN IV NAUSEA AND/OR VOMITING; Start 10/07/18 at 21:00 Famotidine (Pepcid Iv) 20 mg DAILY IV ; Start 10/08/18 at 09:00 Famotidine (Pepcid) 20 mg BID PO ; Start 10/08/18 at 21:00 Acetaminophen (Tylenol Tab) 650 mg Q3H PRN PO ELEVATED TEMPERATURE; Start 10/07/18 at 21:00; Status Hold Potassium Chloride 50 ml @ 50 mls/hr SEE DIRECTION PRN IVPB K+ LEVEL; Start 10/07/18 at 21:00 Magnesium Sulfate/ Dextrose 100 ml @ 100 mls/hr PRN PRN IVPB PENDING LAB VALUE; Start 10/07/18 at 21:00 Propofol 100 ml @ 3.078 mls/ hr Q12H IV ; Start 10/07/18 at 21:30 Diphenhydramine HCl (Benadryl) 25 mg PACU ORDER PRN IV .PRURITUS; Start 10/07/18 at 21:30 Nitroglycerin/ Dextrose 250 ml @ 1.5 mls/hr PER PROTOCOL IV ; Start 10/07/18 at 22:00 Dopamine HCl/ Dextrose 250 ml @ 7.695 mls/ hr PER PROTOCOL IV ; Start 10/07/18 at 22:00 Norepinephrine 250 ml @ 1.875 mls/ hr TITRATE IV Last administered on 10/08/18at 03:04; Admin Dose 3.75 MLS/HR; Start 10/08/18 at 03:00 Acetaminophen 100 ml @ 400 mls/hr Q6H IVPB Last administered on 10/08/18at 07:51; Admin Dose 400 MLS/HR; Start 10/08/18 at 08:00; Stop 10/09/18 at 07:59 RAQUEL MCDOWELL MD October 08, 2018 08:35
--- NOTE | 2018-10-08 08:38 | PN ---
Date/Time of Note Date/Time of Note DATE: 10/08/18 TIME: 08:36 Assessment/Plan Lines/Catheters IV Catheter Type (from Nrsg): Cordis Pierre in Place (from Nrsg): No Assessment/Plan Assessment/Plan cad s/p cabg dialysis hyperkalemia wean to extubate later Subjective 24 Hr Interval Summary s/p cabg Pain Control: well controlled Exam/Review of Systems Vital Signs Vitals Vital Signs Date Temp Pulse Resp B/P (MAP) Pulse Ox O2 O2 Flow FiO2 Time Delivery Rate 10/08/18 101.4 07:51 10/08/18 82 14 100/47 100 07:00 (64) 10/08/18 55 05:20 10/07/18 Room Air 12:09 Intake and Output 10/07/18 10/07/18 10/08/18 1515:00 23:00 07:00 IntakeIntake Total 2527 ml 724.875 ml OutputOutput Total 470 ml 210 ml BalanceBalance 2057 ml 514.875 ml Exam Constitutional: other (on vent) Head: normocephalic Eyes: nl conjunctiva ENMT: nl external ears & nose Neck: supple Respiratory: other (vent fio2 55% mediastinal 100 cc pleural 20 cc) Cardiovascular: regular rate and rhythm, other (levophed) Genitourinary - Male: other (dialysis) Musculoskeletal: other (gangrenel left great, index and middle toe) 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: other (responds) Results Result Diagram: 10/08/18 0500 10/08/18 0500 STACEY LARA MD October 08, 2018 08:38
--- NOTE | 2018-10-08 09:12 | PN ---
Date/Time of Note Date/Time of Note DATE: 10/08/18 TIME: 09:05 Assessment/Plan VTE Prophylaxis Risk score (from Ns)>0 risk: 5 SCD applied (from Ns): No SCD contraindicated: other (PAD with dry gangrene) Pharmacological prophylaxis: NA/contraindicated Pharm contraindication: surgical contra Lines/Catheters IV C[facility] Type [facility]from [facility] Cordis Central line still needed: Yes Urinary Cath still in place: Yes Reason Cath still needed: other (indicate) (intubated) Assessment/Plan Assessment/Plan 67 yo with numerous comorbidities including dyslipidemia, IDDM, ESRD on HD and severe PVD who is also anticoagulated on Eliquis/Plavix,here with worsening malaise, found to have severe anemia/positive stool OB... also had NSTEMI #NSTEMI/Multivessel coronary artery disease - s/p C 09/30 - s/p CABG 10/07 - Previously had heart block, so not able to tolerate beta blockers. - Anticoag, antiplatelet per CT surgery. - Continue statin. - Extubation per pulmonary #Severe acute symptomatic blood loss anemia -Improved with multiple transfusion. -Continue iron #Upper GI bleed -resolved -s/p EGD showed anastomotic ulcer (hx billroth II) -On PPI/Carafate #Mobitz type I heart block -Stable -Avoid BB/AV jesus agents. -Cards follow-up #ESRD, hemodialysis MWF -Management per nephrology -also getting diuretics as well #DMII - Currently on insulin gtt post CABG - When extubated and tolerating diet will transition to subQ insulin. 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 -Wound care #Obesity with BMI 36.3 -Weight reduction advised. #Anemia of ESRD -on Epogen with hemodialysis. DVT prophylaxis: SCDs PUD prophylaxis: Protonix Result Diagram: 10/08/18 0500 10/08/18 0500 Subjective 24 Hr Interval Summary Free Text/Dictation Patient taken for CABGx4 yesterday afternoon, technically successful surgery. Patient remained intubated overnight and this morning. Getting HD this morning with plan for 3L UF. Patient is still on low dose norepinephrine. He is on insulin gtt. He is not on sedation. Exam/Review of Systems Exam Vitals Vital Signs Date Temp Pulse Resp B/P (MAP) Pulse Ox O2 O2 Flow FiO2 Time Delivery Rate 10/08/18 86 14 112/52 100 08:46 (72) 10/08/18 101.4 08:01 10/08/18 55 05:20 10/07/18 Room Air 12:09 Intake and Output 10/07/18 10/07/18 10/08/18 1515:00 23:00 07:00 IntakeIntake Total 2527 ml 724.875 ml OutputOutput Total 470 ml 210 ml BalanceBalance 2057 ml 514.875 ml Exam Constitutional: Obese man intubated on ventilator. HEENT: Head atraumatic and normocephalic. ET tube in place. NECK: Supple without lymphadenopathy. PULM: Mechanical breath sounds equal bilaterally. CHEST: sternotomy site with clean dressing. Three drains in place with sanguin ous drainage. HEART: S1, S2. Regular rate and rhythm. ABDOMEN: Soft, nondistended. : Pierre in place with no output. EXTREMITIES: BLE nonpitting edema. R foot with palpable DP pulse. L foot thready DP pulse. 3rd toe and medial 1st toe dry gangrene, unchanged from yesterday. Results Results 24hrs Laboratory Tests Test 10/07/18 11:55 10/07/18 20:56 10/07/18 21:43 10/07/18 22:21 Bedside Glucose 198 158 Blood Gas Blood arterial Blood venous Specimen Source Arterial Blood 10/07/2018 10:13 10/07/2018 10:13 Date Drawn :00 PM :00 PM Arterial Blood 7.348 L pH (Temp corrected) Arterial Blood 38.2 pCO2 (Temp correct) Arterial Blood 139.2 H pO2 (Temp corrected) Arterial Blood 20.5 L HCO3 Arterial Blood -4.6 L Base Excess Arterial Blood 98.4 H Oxygen Saturatio n Eamon Test N/A N/A Arterial Blood A-Line VENOUS LINE Gas Puncture Site Arterial 0.3 Blood Carboxyhem oglobin Arterial Blood 0.2 Methemoglobin Blood Gas A-a O2 318.8 H Differential Oxyhemoglobin 97.9 Percent Blood Gas 37.0 37.0 Temperature Blood Gas 14.0 14.0 Respiration Rate Blood Gas Actual 14 14 Respiration Rate Blood Gas VENT - AC VENT - AC Modality FiO2 70.0 70.0 Blood Gas Tidal 550.0 550.0 Volume Blood Gas Low 5.0 5.0 PEEP Setting Blood Gas 25.0 25.0 Inspiratory Pressure Blood Gas RTR RTR Notified Whom Blood Gas 10/07/2018 10:26 10/07/2018 10:26 Notified Time :00 PM :00 PM Venous Blood pH 7.309 L Venous Blood 45.0 pCO2 (Temp Corrected) Venous Blood pO2 33.2 H (Temp Corrected) Venous Blood 22.1 HCO3 Venous Blood 61.3 Oxygen Saturation Venous Blood -4.1 Base Excess Venous Blood 11.1 Total Hemoglobin Venous Blood 60.9 Oxyhemoglobin Venous Blood 0.3 Methemoglobin Carboxyhemoglobi 0.4 n Test 10/07/18 22:34 10/07/18 23:11 10/08/18 00:20 10/08/18 02:01 White Blood 16.9 #H Count Red Blood Count 3.46 L Hemoglobin 10.2 L Hematocrit 31.5 L Mean Corpuscular 91.0 Volume Mean Corpuscular 29.5 Hemoglobin Mean Corpuscular 32.4 Hemoglobin Nely nt Red Cell 15.2 H Distribution Width Platelet Count 231 # Mean Platelet 10.4 Volume Immature 1.100 H Granulocytes % Neutrophils % 77.5 H Lymphocytes % 12.2 L Monocytes % 7.4 Eosinophils % 1.3 Basophils % 0.5 Nucleated Red 0.0 Blood Cells % Immature 0.180 H Granulocytes # Neutrophils # 13.1 H Lymphocytes # 2.1 Monocytes # 1.3 H Eosinophils # 0.2 Basophils # 0.1 Nucleated Red 0.0 Blood Cells # Prothrombin Time 17.2 #H Prothrombin Time 1.3 Ratio INR 1.39 International Normalized Ratio Activated 30.9 Partial Thrombop last Time Sodium Level 138 Potassium Level 4.4 Chloride Level 102 Carbon Dioxide 20 L Level Anion Gap 16 H Blood Urea 49 H Nitrogen Creatinine 7.59 H Est Glomerular 7 L Filtrat Rate mL/min Glucose Level 163 Calcium Level 8.5 Magnesium Level 3.3 H Bedside Glucose 156 161 178 Test 10/08/18 03:52 10/08/18 04:55 10/08/18 05:00 10/08/18 05:00 Bedside Glucose 189 192 White Blood 17.6 H Count Red Blood Count 3.25 L Hemoglobin 9.6 L Hematocrit 30.1 L Mean Corpuscular 92.6 Volume Mean Corpuscular 29.5 Hemoglobin Mean Corpuscular 31.9 L Hemoglobin Nely nt Red Cell 15.7 H Distribution Width Platelet Count 276 Mean Platelet 11.3 H Volume Immature 1.300 H Granulocytes % Neutrophils % 88.7 H Lymphocytes % 3.3 L Monocytes % 6.1 Eosinophils % 0.1 Basophils % 0.5 Nucleated Red 0.0 Blood Cells % Immature 0.230 H Granulocytes # Neutrophils # 15.6 H Lymphocytes # 0.6 L Monocytes # 1.1 H Eosinophils # 0.0 Basophils # 0.1 Nucleated Red 0.0 Blood Cells # Prothrombin Time 16.4 H Prothrombin Time 1.3 Ratio INR 1.31 International Normalized Ratio Activated 32.8 Partial Thrombop last Time Sodium Level 138 Potassium Level 6.1 *H Chloride Level 103 Carbon Dioxide 20 L Level Anion Gap 15 H Blood Urea 51 H Nitrogen Creatinine 8.28 H Est Glomerular 7 L Filtrat Rate mL/min Glucose Level 189 Calcium Level 9.0 Magnesium Level 3.1 H Lab Scanned BLOOD TRANSFUSI Report ON Test 10/08/18 05:55 10/08/18 06:49 10/08/18 08:10 Bedside Glucose 167 144 122 Medications Medication Current Medications Diagnostic Test (Pha) (Accu-Chek) 1 ea Q1H XX Last administered on 10/08/18at 08:12; Admin Dose 1 EA; Start 10/07/18 at 22:00 Insulin Human Regular 100 unit/ Sodium Chloride 100 ml @ 0 mls/hr PER PROTOCOL IV Last administered on 10/07/18at 22:30; Admin Dose 2 MLS/HR; Start 10/07/18 at 22:00 Miscellaneous Information (* Miscellaneous Pharmacy Order) Treatment of Hypoglycemia: 1.BG 51... Per protocol XX ; Start 10/07/18 at 21:00 Dextrose (D50w Syringe) 25 ml Q15M PRN IV .DECREASED GLUCOSE; Start 10/07/18 at 21:00 Dextrose (D50w Syringe) 50 ml Q15M PRN IV .DECREASED GLUCOSE; Start 10/07/18 at 21:00 Cefazolin Sodium 50 ml @ 100 mls/hr Q12H IVPB Last administered on 10/07/18at 22:25; Admin Dose 100 MLS/HR; Start 10/07/18 at 21:00; Stop 10/08/18 at 21:29 Hydromorphone HCl (Dilaudid) 0.2 mg Q15M PRN IV PAIN LEVEL 1-5; Start 10/07/18 at 21:00 Hydromorphone HCl (Dilaudid) 0.4 mg Q15M PRN IV PAIN LEVEL 6-10 Last adminis tered on 10/08/18at 03:09; Admin Dose 0.4 MG; Start 10/07/18 at 21:00 Oxycodone/ Acetaminophen (Percocet (5/ 325)) 1 tab Q3H PRN PO PAIN LEVEL 1-5; Start 10/07/18 at 21:00 Oxycodone/ Acetaminophen (Percocet (5/ 325)) 2 tab Q3H PRN PO PAIN LEVEL 6-10; Start 10/07/18 at 21:00 Ondansetron HCl (Zofran Inj) 4 mg Q6H PRN IV NAUSEA AND/OR VOMITING; Start 10/07/18 at 21:00 Famotidine (Pepcid Iv) 20 mg DAILY IV ; Start 10/08/18 at 09:00 Famotidine (Pepcid) 20 mg BID PO ; Start 10/08/18 at 21:00 Acetaminophen (Tylenol Tab) 650 mg Q3H PRN PO ELEVATED TEMPERATURE; Start 10/07/18 at 21:00; Status Hold Potassium Chloride 50 ml @ 50 mls/hr SEE DIRECTION PRN IVPB K+ LEVEL; Start 10/07/18 at 21:00 Magnesium Sulfate/ Dextrose 100 ml @ 100 mls/hr PRN PRN IVPB PENDING LAB VALUE; Start 10/07/18 at 21:00 Propofol 100 ml @ 3.078 mls/ hr Q12H IV ; Start 10/07/18 at 21:30 Diphenhydramine HCl (Benadryl) 25 mg PACU ORDER PRN IV .PRURITUS; Start 10/07/18 at 21:30 Nitroglycerin/ Dextrose 250 ml @ 1.5 mls/hr PER PROTOCOL IV ; Start 10/07/18 at 22:00 Dopamine HCl/ Dextrose 250 ml @ 7.695 mls/ hr PER PROTOCOL IV ; Start 10/07/18 at 22:00 Norepinephrine 250 ml @ 1.875 mls/ hr TITRATE IV Last administered on 10/08/18at 03:04; Admin Dose 3.75 MLS/HR; Start 10/08/18 at 03:00 Acetaminophen 100 ml @ 400 mls/hr Q6H IVPB Last administered on 10/08/18at 07:51; Admin Dose 400 MLS/HR; Start 10/08/18 at 08:00; Stop 10/09/18 at 07:59 AUGUST LUCIANO MD October 08, 2018 09:12
[2018-10-08] MEDS: PROPOFOL 100 ML IV SCH (09:30)
[2018-10-08] MEDS ORDERED: [UNRECOGNIZED DRUG - OTHER] XX SCH (11:00)
[2018-10-08] MEDS: FAMOTIDINE 20 MG INJ IV SCH (13:23)
[2018-10-08] MEDS: CEFAZOLIN 1 GM/50 ML (PMX) 50 ML IVPB SCH ×2 (13:24→20:29)
[2018-10-08] MEDS ORDERED: ALBUMIN HUMAN 5% 250 ML IV PRN (13:30)
--- NOTE | 2018-10-08 16:40 | CONS ---
Assessment/Plan Assessment/Plan Hospital Course (Demo Recall) NSTEMI: Trop peak 1.1 and trended down. S/p cath 09/30/18 with diffuse multivessel CAD. CABG as below CAD s/p CABG: CABG x4 10/07/18, ÁLVAREZ to LAD, SVG to ramus, SVG to OM1 sequenced to OM2. Doing well. Extubated 10/08, off pressors Upper GI bleed: due to anastomotic ulcer seen on EGD 09/26. No bleeding since. Black stools but on iron and stool occult negative. Hgb stable. Anemia: due to above. s/p 5 units PRBCs and 2 units intraop. Stable Wenckebach: Mobitz 1. Not on BB. No pauses or high grade block. 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 Now stopped DM ESRD on HD MWF: hyperkalemia today, s/p incomplete HD HTN H/o Billroth -f/u repeat K, may need HD again today -start ASA 325mg -restart lipitor 40mg -lasix 40mg PO BID -HD per nephrology Consultation Date/Type/Reason Admit Date/Time September 24, 2018 at 08:08 Initial Consult Date 09/24/18 Type of Consult Cardiology Requesting Provider: LAVON SEE Date/Time of Note DATE: 10/08/18 TIME: 16:40 24 HR Interval Summary Free Text/Dictation Doing well post-op. Off all pressors. Extubated this afternoon. Drowsy but responsive. Hemodynamically stable. K 6.1 this am. HD attempted but had issues again. K being rechecked and may need repeat later this evening or in am Having fevers and on antibiotics Exam/Review of Systems Vital Signs Vitals Vital Signs Date Temp Pulse Resp B/P (MAP) Pulse Ox O2 O2 Flow FiO2 Time Delivery Rate 10/08/18 95 21 109/52 97 14:46 (71) 10/08/18 100.3 14:01 10/08/18 30 13:30 10/08/18 [place] 12:42 l Ventilato r T Tube Intake and Output 10/07/18 10/07/18 10/08/18 1515:00 23:00 07:00 IntakeIntake Total 2527 ml 724.875 ml OutputOutput Total 470 ml 210 ml BalanceBalance 2057 ml 514.875 ml Exam Constitutional: No alert (somnolent ) Psych: no complaints Head: normocephalic Neck: supple; No jvd Respiratory: diminished breath sounds; No clear to auscultation Cardiovascular: regular rate and rhythm, edema (trace) Gastrointestinal: soft, non-tender; No distended Musculoskeletal: No nl extremities to inspection 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: nl mental status, nl speech Labs Result Diagram: 10/08/18 0500 10/08/18 0500 Results 24hrs Laboratory Tests Test 10/07/18 20:56 10/07/18 21:43 10/07/18 22:21 10/07/18 22:34 Blood Gas Blood arterial Blood venous Specimen Source Arterial Blood 10/07/2018 10:13 10/07/2018 10:1 Date Drawn :00 PM 3:00 PM Arterial Blood 7.348 L pH (Temp corrected ) Arterial Blood 38.2 pCO2 (Temp correct) Arterial Blood 139.2 H pO2 (Temp corrected ) Arterial Blood 20.5 L HCO3 Arterial Blood -4.6 L Base Excess Arterial Blood 98.4 H Oxygen Saturati on Eamon Test N/A N/A Arterial Blood A-Line VENOUS LINE Gas Puncture Site Arterial 0.3 Blood Carboxyhe moglobin Arterial Blood 0.2 Methemoglobin Blood Gas A-a 318.8 H O2 Differential Oxyhemoglobin 97.9 Percent Blood Gas 37.0 37.0 Temperature Blood Gas 14.0 14.0 Respiration Rate Blood Gas 14 14 Actual Respiration Rat e Blood Gas VENT - AC VENT - AC Modality FiO2 70.0 70.0 Blood Gas Tidal 550.0 550.0 Volume Blood Gas Low 5.0 5.0 PEEP Setting Blood Gas 25.0 25.0 Inspiratory Pressure Blood Gas RTR RTR Notified Whom Blood Gas 10/07/2018 10:26 10/07/2018 10:2 Notified Time :00 PM 6:00 PM Bedside Glucose 158 Venous Blood pH 7.309 L Venous Blood 45.0 pCO2 (Temp Corrected ) Venous Blood 33.2 H pO2 (Temp Corrected ) Venous Blood 22.1 HCO3 Venous Blood 61.3 Oxygen Saturation Venous Blood -4.1 Base Excess Venous Blood 11.1 Total Hemoglobin Venous Blood 60.9 Oxyhemoglobin Venous Blood 0.3 Methemoglobin Carboxyhemoglob 0.4 in White Blood 16.9 #H Count Red Blood Count 3.46 L Hemoglobin 10.2 L Hematocrit 31.5 L Mean 91.0 Corpuscular Volume Mean 29.5 Corpuscular Hemoglobin Mean 32.4 Corpuscular Hemoglobin Conc ent Red Cell 15.2 H Distribution Width Platelet Count 231 # Mean Platelet 10.4 Volume Immature 1.100 H Granulocytes % Neutrophils % 77.5 H Lymphocytes % 12.2 L Monocytes % 7.4 Eosinophils % 1.3 Basophils % 0.5 Nucleated Red 0.0 Blood Cells % Immature 0.180 H Granulocytes # Neutrophils # 13.1 H Lymphocytes # 2.1 Monocytes # 1.3 H Eosinophils # 0.2 Basophils # 0.1 Nucleated Red 0.0 Blood Cells # Prothrombin 17.2 #H Time Prothrombin 1.3 Time Ratio INR 1.39 International Normalized Rati o Activated 30.9 Partial Thrombo plast Time Sodium Level 138 Potassium Level 4.4 Chloride Level 102 Carbon Dioxide 20 L Level Anion Gap 16 H Blood Urea 49 H Nitrogen Creatinine 7.59 H Est Glomerular 7 L Filtrat Rate mL/min Glucose Level 163 Calcium Level 8.5 Magnesium Level 3.3 H Test 10/07/18 23:11 10/08/18 00:20 10/08/18 02:01 10/08/18 03:52 Bedside Glucose 156 161 178 189 Test 10/08/18 04:55 10/08/18 05:00 10/08/18 05:00 10/08/18 05:55 Bedside Glucose 192 167 White Blood 17.6 H Count Red Blood Count 3.25 L Hemoglobin 9.6 L Hematocrit 30.1 L Mean 92.6 Corpuscular Volume Mean 29.5 Corpuscular Hemoglobin Mean 31.9 L Corpuscular Hemoglobin Conc ent Red Cell 15.7 H Distribution Width Platelet Count 276 Mean Platelet 11.3 H Volume Immature 1.300 H Granulocytes % Neutrophils % 88.7 H Lymphocytes % 3.3 L Monocytes % 6.1 Eosinophils % 0.1 Basophils % 0.5 Nucleated Red 0.0 Blood Cells % Immature 0.230 H Granulocytes # Neutrophils # 15.6 H Lymphocytes # 0.6 L Monocytes # 1.1 H Eosinophils # 0.0 Basophils # 0.1 Nucleated Red 0.0 Blood Cells # Prothrombin 16.4 H Time Prothrombin 1.3 Time Ratio INR 1.31 International Normalized Rati o Activated 32.8 Partial Thrombo plast Time Sodium Level 138 Potassium Level 6.1 *H Chloride Level 103 Carbon Dioxide 20 L Level Anion Gap 15 H Blood Urea 51 H Nitrogen Creatinine 8.28 H Est Glomerular 7 L Filtrat Rate mL/min Glucose Level 189 Calcium Level 9.0 Magnesium Level 3.1 H Lab Scanned BLOOD TRANSFUS Report ION Test 10/08/18 06:49 10/08/18 08:10 10/08/18 09:02 10/08/18 10:06 Bedside Glucose 144 122 133 123 Test 10/08/18 12:10 10/08/18 14:15 10/08/18 14:31 10/08/18 16:02 Bedside Glucose 119 120 109 Blood Gas Blood arterial Specimen Source Arterial Blood 10/08/2018 2:09: Date Drawn 31 PM Arterial Blood 7.372 pH (Temp corrected ) Arterial Blood 36.0 pCO2 (Temp correct) Arterial Blood 84.6 pO2 (Temp corrected ) Arterial Blood 20.4 L HCO3 Arterial Blood -4.3 L Base Excess Arterial Blood 94.6 L Oxygen Saturati on Eamon Test N/A Arterial Blood A-Line Gas Puncture Site Arterial 0.3 Blood Carboxyhe moglobin Arterial Blood 0.2 Methemoglobin Blood Gas A-a 87.0 H O2 Differential Oxyhemoglobin 94.1 Percent Blood Gas 37.0 Temperature Blood Gas 19 Actual Respiration Rat e Blood Gas VENT - CPAP Modality FiO2 30.0 Blood Gas Low 5.0 PEEP Setting Blood Gas 10 Pressure Support Blood Gas TM Notified Whom Blood Gas 10/08/2018 2:16: Notified Time 10 PM Test 10/08/18 16:09 Sodium Level 140 Potassium Level 5.2 H Chloride Level 104 Carbon Dioxide 19 L Level Anion Gap 17 H Blood Urea 48 H Nitrogen Creatinine 7.69 H Est Glomerular 7 L Filtrat Rate mL/min Glucose Level 108 # Calcium Level 9.2 Medications Medications Current Medications Diagnostic Test (Pha) (Accu-Chek) 1 ea Q1H XX Last administered on 10/08/18at 13:26; Admin Dose 1 EA; Start 10/07/18 at 22:00 Insulin Human Regular 100 unit/ Sodium Chloride 100 ml @ 0 mls/hr PER PROTOCOL IV Last administered on 10/07/18at 22:30; Admin Dose 2 MLS/HR; Start 10/07/18 at 22:00 Miscellaneous Information (* Miscellaneous Pharmacy Order) Treatment of Hypoglycemia: 1.BG 51... Per protocol XX ; Start 10/07/18 at 21:00 Dextrose (D50w Syringe) 25 ml Q15M PRN IV .DECREASED GLUCOSE; Start 10/07/18 at 21:00 Dextrose (D50w Syringe) 50 ml Q15M PRN IV .DECREASED GLUCOSE; Start 10/07/18 at 21:00 Cefazolin Sodium 50 ml @ 100 mls/hr Q12H IVPB Last administered on 10/08/18at 13:24; Admin Dose 100 MLS/HR; Start 10/07/18 at 21:00; Stop 10/08/18 at 21:29 Hydromorphone HCl (Dilaudid) 0.2 mg Q15M PRN IV PAIN LEVEL 1-5; Start 10/07/18 at 21:00 Hydromorphone HCl (Dilaudid) 0.4 mg Q15M PRN IV PAIN LEVEL 6-10 Last administered on 10/08/18at 03:09; Admin Dose 0.4 MG; Start 10/07/18 at 21:00 Oxycodone/ Acetaminophen (Percocet (5/ 325)) 1 tab Q3H PRN PO PAIN LEVEL 1-5; Start 10/07/18 at 21:00 Oxycodone/ Acetaminophen (Percocet (5/ 325)) 2 tab Q3H PRN PO PAIN LEVEL 6-10; Start 10/07/18 at 21:00 Ondansetron HCl (Zofran Inj) 4 mg Q6H PRN IV NAUSEA AND/OR VOMITING; Start 10/07/18 at 21:00 Famotidine (Pepcid Iv) 20 mg DAILY IV Last administered on 10/08/18at 13:23; Admin Dose 20 MG; Start 10/08/18 at 09:00 Famotidine (Pepcid) 20 mg BID PO ; Start 10/08/18 at 21:00; Status Future Hold Acetaminophen (Tylenol Tab) 650 mg Q3H PRN PO ELEVATED TEMPERATURE; Start 10/07/18 at 21:00; Status Hold Potassium Chloride 50 ml @ 50 mls/hr SEE DIRECTION PRN IVPB K+ LEVEL; Start 10/07/18 at 21:00 Magnesium Sulfate/ Dextrose 100 ml @ 100 mls/hr PRN PRN IVPB PENDING LAB VALUE; Start 10/07/18 at 21:00 Propofol 100 ml @ 3.078 mls/ hr Q12H IV ; Start 10/07/18 at 21:30 Diphenhydramine HCl (Benadryl) 25 mg PACU ORDER PRN IV .PRURITUS; Start 10/07/18 at 21:30 Nitroglycerin/ Dextrose 250 ml @ 1.5 mls/hr PER PROTOCOL IV ; Start 10/07/18 at 22:00 Dopamine HCl/ Dextrose 250 ml @ 7.695 mls/ hr PER PROTOCOL IV ; Start 10/07/18 at 22:00 Norepinephrine 250 ml @ 1.875 mls/ hr TITRATE IV Last administered on 10/08/18at 03:04; Admin Dose 3.75 MLS/HR; Start 10/08/18 at 03:00 Acetaminophen 100 ml @ 400 mls/hr Q6H IVPB Last administered on 10/08/18at 07:51; Admin Dose 400 MLS/HR; Start 10/08/18 at 08:00; Stop 10/09/18 at 07:59 Miscellaneous Information 1 ea NOTE XX ; Start 10/08/18 at 11:00 Albumin Human 250 ml @ 500 mls/hr PRN PRN IV CVP< 8, OR SBP<90; Start 10/08/18 at 13:30 LAVON SEE October 08, 2018 16:40
--- NOTE | 2018-10-08 17:43 | RADRPT ---
Vent Rate: 93 bpm RR Interval: 648 msec AL Interval: 207 msec QRS Duration: 119 msec QT Interval: 387 msec QTC Interval: 481 msec P-R-T [place]: -20 - -112 - 48 degrees Sinus rhythm...normal P axis, V-rate 50- 99 Borderline prolonged AL interval...AL >207, V-rate 91-120 Incomplete right bundle branch block...QRSd >112, terminal axis(90,270) Low voltage, precordial leads...precordial leads <1.0mV Lateral infarct, old...Q>40mS, flat T, V5 V6 I aVL Electronically Signed By: Darrell Hernandez
--- NOTE | 2018-10-08 17:46 | RADRPT ---
Vent Rate: 83 bpm RR Interval: 728 msec HI Interval: 209 msec QRS Duration: 117 msec QT Interval: 380 msec QTC Interval: 445 msec P-R-T [place]: -49 - -107 - 61 degrees Sinus or ectopic atrial rhythm...P axis (-45,135) Incomplete right bundle branch block...QRSd >112, terminal axis(90,270) Anterolateral infarct, age indeterminate...Q >35mS, flat/neg T, V3-V6,I,aVL ST elevation, consider injury vs pericarditis Electronically Signed By: Darrell Hernandez
--- NOTE | 2018-10-08 17:48 | RADRPT ---
Vent Rate: 106 bpm RR Interval: 568 msec [place] Interval: 203 msec QRS Duration: 116 msec QT Interval: 358 msec QTC Interval: 475 msec P-R-T [place]: 7 - -113 - 36 degrees Sinus tachycardia...rate> 99 Incomplete right bundle branch block...QRSd >112, terminal axis(90,270) Anterolateral infarct, old...Q>40mS, abnrm ST-T, V3-V6,I,aVL Electronically Signed By: Darrell Hernandez
[2018-10-08] MEDS: FUROSEMIDE 40 MG TAB PO SCH (18:03)
[2018-10-08] MEDS: ASPIRIN 325 MG TAB PO SCH (18:04)
[2018-10-08] MEDS: ATORVASTATIN 40 MG TAB PO SCH (20:29)
[2018-10-08] MEDS: FAMOTIDINE 20 MG TAB PO SCH (20:29)
[2018-10-09] VITALS (23 sets, daily range): BP systolic 74–155; BP diastolic 48–92; PULSE 83–102; RESP 19–26
[2018-10-09] MEDS: ACCU-CHEK XX SCH ×13 (01:02→20:52)
[2018-10-09] MEDS: FUROSEMIDE 40 MG TAB PO SCH ×2 (05:54→18:05)
--- NOTE | 2018-10-09 08:19 | PN ---
Date/Time of Note Date/Time of Note DATE: 10/09/18 TIME: 08:16 Assessment/Plan Lines/Catheters IV Catheter Type (from Nrsg): Central Line Pierre in Place (from Nrsg): Yes Assessment/Plan Assessment/Plan RRR, remove chest tubes and KARLA. start beta fabiana and lipitor. OOB to chair Exam/Review of Systems Vital Signs Vitals Vital Signs Date Temp Pulse Resp B/P (MAP) Pulse Ox O2 O2 Flow FiO2 Time Delivery Rate 10/09/18 93 21 140/66 95 Nasal 2.0 05:00 (90) Cannula 10/09/18 98.0 04:00 10/09/18 27 03:14 Intake and Output 10/08/18 10/08/18 10/09/18 1515:00 23:00 07:00 IntakeIntake Total 95.125 ml 123.6 ml 46.0 ml OutputOutput Total 965 ml 30 ml 235 ml BalanceBalance -869.875 ml 93.6 ml -189.0 ml Results Result Diagram: 10/09/18 0333 10/09/18 0333 LESLIE WESTON MD October 09, 2018 08:19
--- NOTE | 2018-10-09 08:42 | PN ---
Date/Time of Note Date/Time of Note DATE: 10/09/18 TIME: 08:41 Assessment/Plan Lines/Catheters IV Catheter Type (from Nrsg): Central Line Pierre in Place (from Nrsg): Yes Assessment/Plan Chief Complaint/Hosp Course -No current vascular intervention at this time given severe CAD S/P CABG. Life over limb at this time. -LLE toe gangrene dry and stable -Will continue to monitor his progress -Bilateral lower extremity atherosclerosis with left lower extremity with left lower extremity third toe gangrene: It seems that the patient's left lower extremity third toe has become dry gangrene and currently stable. Unfortunately his first and second toe have also become gangrene with no significant erythema. The patient's foot pain has gradually improved since we had seen him a month ago and followed him in the office over the past few weeks. From a vascular surgery standpoint, recommend no current intervention as the patient has likely an upper gastrointestinal bleed. We are hoping that the patient's lower extremity atherosclerotic disease will not worsen during this period of time. Resume anticoagulation and antiplatelet therapy when cleared by multidisciplinary team. There is concern he may require an amputation should he not improve and develop worsening gangrene. This was discussed in detail with the family given his plethora of medical conditions -Bilateral lower extremity varicose veins and edema: The patient has component of mixed disease (venous insufficiency and arterial sufficiency). At the moment, we recommend elevation of the bilateral lower extremities while at rest. No further intervention will be needed and can be followed as an outpatient in regards to venous insufficiency. -End-stage renal disease: At the moment the patient's left upper extremity fistula is nonfunctional. Recommend using 17 gauge needle for cannulation for now. 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 May require catheter placement. Optimize vascular status (BP meds, diet, nutrition, exercise, sugar control). We will resume antiplatelet therapy once cleared from GI standpoint. Discussed findings, plan and management with the patient and at the bedside and they understand. Thank you for allowing us to partake in the care of your patient. Please call with any questions. A certified core inspector was present throughout the conversation. Subjective 24 Hr Interval Summary appears dialysis nurse did not cannulate fistula correctly. Will re-evaluate today Constitutional: no complaints Exam/Review of Systems Vital Signs Vitals Vital Signs Date Temp Pulse Resp B/P (MAP) Pulse Ox O2 O2 Flow FiO2 Time Delivery Rate 10/10/18 99 18 147/85 18:00 (105) 10/10/18 97 17:00 10/10/18 98.7 16:00 10/10/18 Nasal 11:00 Cannula 10/10/18 2.0 08:30 10/10/18 27 03:46 Intake and Output 10/09/18 10/09/18 10/10/18 1515:00 23:00 07:00 IntakeIntake Total 486 ml 290 ml 150 ml OutputOutput Total 250 ml 240 ml 620 ml BalanceBalance 236 ml 50 ml -470 ml Exam Free Text/Dictation GENERAL: Awake. PULMONARY: Coarse BS bilaterally CARDIOVASCULAR: S1, S2 present. Dressing intact ABDOMEN: Soft, nontender, nondistended. Bowel sounds positive. Large truncal obesity. EXTREMITIES: Right lower extremity palpable femoral pulse, nonpalpable pedal pulse. Motor, sensory intact. Cap refill 3 to 4 seconds. Presence of varicose veins and large leg. Left lower extremity palpable femoral pulse, nonpalpable pedal pulse. Motor, sensory intact. Cap refill 3 to 4 seconds. Third toe gangrene, First and second toe with previous bluish discoloration and formation of gangrene now. Heel gangrene developing Varicose veins and edema of the left lower extremity with presence of mild lipodermatosclerosis. Left upper extremity: Palpable brachial pulse, motor/sensory intact, fistula with bruit and thrill present Results Result Diagram: 10/10/18 0315 10/10/18 0315 VANIA PEREYRA MD October 09, 2018 08:42
[2018-10-09] MEDS: ASPIRIN 325 MG TAB PO SCH (08:51)
[2018-10-09] MEDS: BALSAM PERU/CASTOR OIL 60 GM TUBE TOP SCH (08:51)
[2018-10-09] MEDS: FAMOTIDINE 20 MG INJ IV SCH (08:51)
[2018-10-09] MEDS ORDERED: METOPROLOL 25 MG TAB PO SCH (09:00)
--- NOTE | 2018-10-09 09:17 | PN ---
Date/Time of Note Date/Time of Note DATE: 10/09/18 TIME: 09:10 Assessment/Plan VTE Prophylaxis Risk score (from Ns)>0 risk: 11 SCD applied (from Ns): No SCD contraindicated: other (LE gangrene) Pharmacological prophylaxis: other (per cardiology) Lines/Catheters IV Catheter Type (from [facility]): Central Line Central line still needed: Yes Urinary Cath still in place: No Assessment/Plan Assessment/Plan 67 yo with numerous comorbidities including dyslipidemia, IDDM, ESRD on HD and severe PVD who is also anticoagulated on Eliquis/Plavix,here with worsening malaise, found to have severe anemia/positive stool OB... also had NSTEMI #NSTEMI/Multivessel coronary artery disease - s/p LHC 09/30 - s/p CABG 10/07 - Cautiously resume beta blockers. - Anticoag, antiplatelet per CT surgery. - Continue statin. #Severe acute symptomatic blood loss anemia -Improved with multiple transfusion. -Continue iron #Upper GI bleed -resolved -s/p EGD showed anastomotic ulcer (hx billroth II) -On PPI/Carafate #Mobitz type I heart block - Now post CABG will resume beta blockers - Maintain on telemetry #ESRD, hemodialysis MWF -Management per nephrology -also getting diuretics as well #DMII - transition to subQ insulin. - Glargine 31 u qam, subQ insulin daily. 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 -Wound care #Obesity with BMI 36.3 -Weight reduction advised. #Anemia of ESRD -on Epogen with hemodialysis. DVT prophylaxis: SCDs PUD prophylaxis: Protonix Result Diagram: 10/09/18 03310/09/18 033 Subjective 24 Hr Interval Summary Free Text/Dictation Patient extubated yesterday afternoon. Today breathing comfortably on nasal cannula. Off all pressors. Chest drains out, harris out. He does have postoperative pain, especially when coughing and with deep breaths. Still with A line. Will transition to subQ insulin today. Exam/Review of Systems Exam Vitals Vital Signs Date Temp Pulse Resp B/P (MAP) Pulse Ox O2 O2 Flow FiO2 Time Delivery Rate 10/09/18 93 21 140/66 95 Nasal 2.0 05:00 (90) Cannula 10/09/18 98.0 04:00 10/09/18 27 03:14 Intake and Output 10/08/18 10/08/18 10/09/18 1515:00 23:00 07:00 IntakeIntake Total 95.125 ml 123.6 ml 46.0 ml OutputOutput Total 965 ml 30 ml 235 ml BalanceBalance -869.875 ml 93.6 ml -189.0 ml Exam Constitutional: Obese man awake, alert, communicative in [place]. HEENT: Head atraumatic and normocephalic. NECK: Supple without lymphadenopathy. PULM: Diminished lung excursion bilaterally. Diminished basilar breath sounds. CHEST: sternotomy site with clean dressing. Drains out. HEART: S1, S2. Regular rate and rhythm. ABDOMEN: Soft, nondistended. EXTREMITIES: BLE nonpitting edema. R foot with palpable DP pulse. L foot thready DP pulse. 3rd toe and medial 1st toe dry gangrene, unchanged from yesterday. Results Results 24hrs Laboratory Tests Test 10/08/18 10:06 10/08/18 12:10 10/08/18 14:15 10/08/18 14:31 Bedside Glucose 123 119 120 Blood Gas Blood arterial Specimen Source Arterial Blood 10/08/2018 2:09:3 Date Drawn 1 PM Arterial Blood pH 7.372 (Temp corrected) Arterial Blood 36.0 pCO2 (Temp correct) Arterial Blood 84.6 pO2 (Temp corrected) Arterial Blood 20.4 L HCO3 Arterial Blood -4.3 L Base Excess Arterial Blood 94.6 L Oxygen Saturation Eamon Test N/A Arterial Blood A-Line Gas Puncture Site Arterial 0.3 Blood Carboxyhemo globin Arterial Blood 0.2 Methemoglobin Blood Gas A-a O2 87.0 H Differential Oxyhemoglobin 94.1 Percent Blood Gas 37.0 Temperature Blood Gas Actual 19 Respiration Rate Blood Gas VENT - CPAP Modality FiO2 30.0 Blood Gas Low 5.0 PEEP Setting Blood Gas 10 Pressure Support Blood Gas TM Notified Whom Blood Gas 10/08/2018 2:16:1 Notified Time 0 PM Test 10/08/18 16:02 10/08/18 16:09 10/08/18 18:08 10/08/18 20:16 Bedside Glucose 109 145 193 Sodium Level 140 Potassium Level 5.2 H Chloride Level 104 Carbon Dioxide 19 L Level Anion Gap 17 H Blood Urea 48 H Nitrogen Creatinine 7.69 H Est Glomerular 7 L Filtrat Rate mL/min Glucose Level 108 # Calcium Level 9.2 Test 10/08/18 21:00 10/08/18 21:14 10/08/18 22:08 10/08/18 23:00 Hematocrit 27.6 L Bedside Glucose 176 169 179 Test 10/08/18 23:56 10/09/18 01:00 10/09/18 02:16 10/09/18 02:58 Bedside Glucose 159 158 159 157 Test 10/09/18 03:33 10/09/18 04:03 10/09/18 05:01 10/09/18 05:51 White Blood Count 14.5 H Red Blood Count 2.72 L Hemoglobin 8.1 L Hematocrit 25.3 L Mean Corpuscular 93.0 Volume Mean Corpuscular 29.8 Hemoglobin Mean Corpuscular 32.0 Hemoglobin Concen t Red Cell 16.0 H Distribution Width Platelet Count 189 # Mean Platelet 11.7 H Volume Immature 0.800 H Granulocytes % Neutrophils % 83.8 H Lymphocytes % 7.9 L Monocytes % 6.7 Eosinophils % 0.1 Basophils % 0.7 Nucleated Red 0.0 Blood Cells % Immature 0.120 H Granulocytes # Neutrophils # 12.2 H Lymphocytes # 1.1 Monocytes # 1.0 H Eosinophils # 0.0 Basophils # 0.1 Nucleated Red 0.0 Blood Cells # Sodium Level 140 Potassium Level 5.1 Chloride Level 105 Carbon Dioxide 19 L Level Anion Gap 16 H Blood Urea 54 H Nitrogen Creatinine 8.50 H Est Glomerular 6 L Filtrat Rate mL/min Glucose Level 143 Calcium Level 9.4 Magnesium Level 2.8 H Bedside Glucose 147 135 132 Test 10/09/18 06:41 10/09/18 08:00 10/09/18 09:04 Bedside Glucose 133 157 167 Medications Medication Current Medications Diagnostic Test (Pha) (Accu-Chek) 1 ea Q1H XX Last administered on 10/09/18at 09:04; Admin Dose 1 EA; Start 10/07/18 at 22:00 Insulin Human Regular 100 unit/ Sodium Chloride 100 ml @ 0 mls/hr PER PROTOCOL IV Last administered on 10/07/18at 22:30; Admin Dose 2 MLS/HR; Start 10/07/18 at 22:00 Miscellaneous Information (* Miscellaneous Pharmacy Order) Treatment of Hypoglycemia: 1.BG 51... Per protocol XX ; Start 10/07/18 at 21:00 Dextrose (D50w Syringe) 25 ml Q15M PRN IV .DECREASED GLUCOSE; Start 10/07/18 at 21:00 Dextrose (D50w Syringe) 50 ml Q15M PRN IV .DECREASED GLUCOSE; Start 10/07/18 at 21:00 Hydromorphone HCl (Dilaudid) 0.2 mg Q15M PRN IV PAIN LEVEL 1-5; Start 10/07/18 at 21:00 Hydromorphone HCl (Dilaudid) 0.4 mg Q15M PRN IV PAIN LEVEL 6-10 Last administered on 10/08/18at 03:09; Admin Dose 0.4 MG; Start 10/07/18 at 21:00 Oxycodone/ Acetaminophen (Percocet (5/ 325)) 1 tab Q3H PRN PO PAIN LEVEL 1-5; Start 10/07/18 at 21:00 Oxycodone/ Acetaminophen (Percocet (5/ 325)) 2 tab Q3H PRN PO PAIN LEVEL 6-10; Start 10/07/18 at 21:00 Ondansetron HCl (Zofran Inj) 4 mg Q6H PRN IV NAUSEA AND/OR VOMITING; Start 10/07/18 at 21:00 Famotidine (Pepcid Iv) 20 mg DAILY IV Last administered on 10/09/18at 08:51; Admin Dose 20 MG; Start 10/08/18 at 09:00 Famotidine (Pepcid) 20 mg BID PO Last administered on 10/08/18at 20:29; Admin Dose 20 MG; Start 10/08/18 at 21:00; Status Hold Acetaminophen (Tylenol Tab) 650 mg Q3H PRN PO ELEVATED TEMPERATURE; Start 10/07/18 at 21:00 Potassium Chloride 50 ml @ 50 mls/hr SEE DIRECTION PRN IVPB K+ LEVEL; Start 10/07/18 at 21:00 Magnesium Sulfate/ Dextrose 100 ml @ 100 mls/hr PRN PRN IVPB PENDING LAB VALUE; Start 10/07/18 at 21:00 Diphenhydramine HCl (Benadryl) 25 mg PACU ORDER PRN IV .PRURITUS; Start 10/07/18 at 21:30 Nitroglycerin/ Dextrose 250 ml @ 1.5 mls/hr PER PROTOCOL IV ; Start 10/07/18 at 22:00 Dopamine HCl/ Dextrose 250 ml @ 7.695 mls/ hr PER PROTOCOL IV ; Start 10/07/18 at 22:00 Norepinephrine 250 ml @ 1.875 mls/ hr TITRATE IV Last administered on 10/08/18at 03:04; Admin Dose 3.75 MLS/HR; Start 10/08/18 at 03:00 Miscellaneous Information 1 ea NOTE XX ; Start 10/08/18 at 11:00 Albumin Human 250 ml @ 500 mls/hr PRN PRN IV CVP< 8, OR SBP<90; Start 10/08/18 at 13:30 Aspirin (Aspirin) 325 mg DAILY PO Last administered on 10/09/18 08:51; Admin Dose 325 MG; Start 10/08/18 at 16:30 Atorvastatin Calcium (Lipitor) 40 mg HS PO Last administered on 10/08/18at 20:29; Admin Dose 40 MG; Start 10/08/18 at 21:00 Furosemide (Lasix) 40 mg BID DIURETICS PO Last administered on 10/09/18at 05:54; Admin Dose 40 MG; Start 10/08/18 at 18:00 Metoprolol Tartrate (Lopressor) 25 mg BID PO Last administered on 10/09/18 08:51; Admin Dose 25 MG; Start 10/09/18 at 09:00 AUGUST LUCIANO MD October 09, 2018 09:17
[2018-10-09] MEDS ORDERED: INSULIN GLARGINE [LANTus] (100 UNITS/ML) SYG SC SCH (10:30)
[2018-10-09] MEDS ORDERED: GLUCOSE GEL 15 GRAM TUBE BUCCAL PRN (12:00)
[2018-10-09] MEDS ORDERED: GLUCAGON 1 MG INJ IM PRN (12:00)
[2018-10-09] MEDS ORDERED: GLUCOSE GEL 15 GRAM TUBE PO PRN ×2 (12:00)
[2018-10-09] MEDS ORDERED: DEXTROSE 50% 50 ML SYRINGE IV PRN ×2 (12:00)
[2018-10-09] MEDS: ONDANSETRON 4 MG INJ IV PRN (13:52)
[2018-10-09] MEDS: INSULIN ASPART [NOVOLOG] 3 ML PEN SC SCH ×3 (13:53→20:40)
[2018-10-09] MEDS ORDERED: HEPARIN 1000 UNITS/ML 10 ML INJ ONE (14:57)
--- NOTE | 2018-10-09 15:05 | CONS ---
Assessment/Plan Assessment/Plan Assessment/Plan (Daily) 1. acute Hyperkalemia due to GI bleeding- resolved 2.Acute fluid overload with Uremia BUN 111 on admission 3. acute GI bleeding causing acute blood loss anemia- S/p Status post EGD/colonoscopy 09/27/19 -Anastomosis ulcer -Normal colonoscopy 4. Severe Anemia with Hb 5.8 on admission s/p 5 U PRBC transfusion for GI bleeding during this admission 5. H/O HTN 6. H/O peripherla vascular disease 7. ESRD on HD -follow up at [facility] [place] scheduled HD on [facility] 8. acute NSTEMI s/p LHC on 09/30/18 that showed 3 V CAD- s/p CABG on 10/07/18 Plan: s/p CABG on 09/27/18- remained all three Chest tubes, A line removed, s/p Randy catehter placement for HD access, plan for HD today and tomorrow Lasix 40mg pO BID Ventilator plan as per CT surgery and pulmonary will follow up Consultation Date/Type/Reason Admit Date/Time September 24, 2018 at 08:08 Initial Consult Date 09/24/18 Type of Consult NEPHROLOGY Requesting Provider: LAVON SEE Date/Time of Note DATE: 10/09/18 TIME: 15:05 24 HR Interval Summary Free Text/Dictation pt did not complete HD yesterday, AVF clotted, plan for randy placement and HD plan today Exam/Review of Systems Exam Vitals Vital Signs Date Temp Pulse Resp B/P (MAP) Pulse Ox O2 O2 Flow FiO2 Time Delivery Rate 10/09/18 85 23 105/66 97 Nasal 2.0 11:00 (79) Cannula 10/09/18 98.4 08:00 10/09/18 27 03:14 Intake and Output 10/08/18 10/08/18 10/09/18 1515:00 23:00 07:00 IntakeIntake Total 95.125 ml 123.6 ml 46.0 ml OutputOutput Total 965 ml 30 ml 235 ml BalanceBalance -869.875 ml 93.6 ml -189.0 ml Exam Constitutional: intubated on ventilator Neck: jvd Respiratory: crackles/rales, diminished breath sounds Cardiovascular: regular rate and rhythm, nl pulses Gastrointestinal: soft, non-tender Musculoskeletal: swelling Extremities: normal pulses 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: other (sedated, intubatd on ventilator ) Lymph: nl lymph nodes Results Result Diagram: 10/09/18 0333 10/09/18 0333 Results 24hrs Laboratory Tests Test 10/08/18 16:02 10/08/18 16:09 10/08/18 18:08 10/08/18 20:16 Bedside Glucose 109 145 193 Sodium Level 140 Potassium Level 5.2 H Chloride Level 104 Carbon Dioxide Level 19 L Anion Gap 17 H Blood Urea Nitrogen 48 H Creatinine 7.69 H Est Glomerular 7 L Filtrat Rate mL/min Glucose Level 108 # Calcium Level 9.2 Test 10/08/18 21:00 10/08/18 21:14 10/08/18 22:08 10/08/18 23:00 Hematocrit 27.6 L Bedside Glucose 176 169 179 Test 10/08/18 23:56 10/09/18 01:00 10/09/18 02:16 10/09/18 02:58 Bedside Glucose 159 158 159 157 Test 10/09/18 03:33 10/09/18 04:03 10/09/18 05:01 10/09/18 05:51 White Blood Count 14.5 H Red Blood Count 2.72 L Hemoglobin 8.1 L Hematocrit 25.3 L Mean Corpuscular 93.0 Volume Mean Corpuscular 29.8 Hemoglobin Mean Corpuscular 32.0 Hemoglobin Concent Red Cell 16.0 H Distribution Width Platelet Count 189 # Mean Platelet Volume 11.7 H Immature 0.800 H Granulocytes % Neutrophils % 83.8 H Lymphocytes % 7.9 L Monocytes % 6.7 Eosinophils % 0.1 Basophils % 0.7 Nucleated Red Blood 0.0 Cells % Immature 0.120 H Granulocytes # Neutrophils # 12.2 H Lymphocytes # 1.1 Monocytes # 1.0 H Eosinophils # 0.0 Basophils # 0.1 Nucleated Red Blood 0.0 Cells # Sodium Level 140 Potassium Level 5.1 Chloride Level 105 Carbon Dioxide Level 19 L Anion Gap 16 H Blood Urea Nitrogen 54 H Creatinine 8.50 H Est Glomerular 6 L Filtrat Rate mL/min Glucose Level 143 Calcium Level 9.4 Magnesium Level 2.8 H Bedside Glucose 147 135 132 Test 10/09/18 06:41 10/09/18 08:00 10/09/18 09:04 10/09/18 10:26 Bedside Glucose 133 157 167 214 Test 10/09/18 13:49 Bedside Glucose 271 H Medications Medication Current Medications Miscellaneous Information (* Miscellaneous Pharmacy Order) Treatment of Hypogly cemia: 1.BG 51... Per protocol XX ; Start 10/07/18 at 21:00 Hydromorphone HCl (Dilaudid) 0.2 mg Q15M PRN IV PAIN LEVEL 1-5; Start 10/07/18 at 21:00 Hydromorphone HCl (Dilaudid) 0.4 mg Q15M PRN IV PAIN LEVEL 6-10 Last administered on 10/08/18at 03:09; Admin Dose 0.4 MG; Start 10/07/18 at 21:00 Oxycodone/ Acetaminophen (Percocet (5/ 325)) 1 tab Q3H PRN PO PAIN LEVEL 1-5; Start 10/07/18 at 21:00 Oxycodone/ Acetaminophen (Percocet (5/ 325)) 2 tab Q3H PRN PO PAIN LEVEL 6-10; Start 10/07/18 at 21:00 Ondansetron HCl (Zofran Inj) 4 mg Q6H PRN IV NAUSEA AND/OR VOMITING Last administered on 10/09/18at 13:52; Admin Dose 4 MG; Start 10/07/18 at 21:00 Famotidine (Pepcid Iv) 20 mg DAILY IV Last administered on 10/09/18at 08:51; Admin Dose 20 MG; Start 10/08/18 at 09:00 Famotidine (Pepcid) 20 mg BID PO Last administered on 10/08/18at 20:29; Admin Dose 20 MG; Start 10/08/18 at 21:00; Status Hold Acetaminophen (Tylenol Tab) 650 mg Q3H PRN PO ELEVATED TEMPERATURE; Start 10/07/18 at 21:00 Potassium Chloride 50 ml @ 50 mls/hr SEE DIRECTION PRN IVPB K+ LEVEL; Start 10/07/18 at 21:00 Magnesium Sulfate/ Dextrose 100 ml @ 100 mls/hr PRN PRN IVPB PENDING LAB VALUE; Start 10/07/18 at 21:00 Diphenhydramine HCl (Benadryl) 25 mg PACU ORDER PRN IV .PRURITUS; Start 10/07/18 at 21:30 Nitroglycerin/ Dextrose 250 ml @ 1.5 mls/hr PER PROTOCOL IV ; Start 10/07/18 at 22:00 Dopamine HCl/ Dextrose 250 ml @ 7.695 mls/ hr PER PROTOCOL IV ; Start 10/07/18 at 22:00 Norepinephrine 250 ml @ 1.875 mls/ hr TITRATE IV Last administered on 10/08/18at 03:04; Admin Dose 3.75 MLS/HR; Start 10/08/18 at 03:00 Miscellaneous Information 1 ea NOTE XX ; Start 10/08/18 at 11:00 Albumin Human 250 ml @ 500 mls/hr PRN PRN IV CVP< 8, OR SBP<90; Start 10/08/18 at 13:30 Aspirin (Aspirin) 325 mg DAILY PO Last administered on 10/09/18at 08:51; Admin Dose 325 MG; Start 10/08/18 at 16:30 Atorvastatin Calcium (Lipitor) 40 mg HS PO Last administered on 10/08/18at 20:29; Admin Dose 40 MG; Start 10/08/18 at 21:00 Furosemide (Lasix) 40 mg BID DIURETICS PO Last administered on 10/09/18at 05:54; Admin Dose 40 MG; Start 10/08/18 at 18:00 Diagnostic Test (Pha) (Accu-Chek) 1 ea 02 XX ; Start 10/10/18 at 02:00 Insulin Glargine (Lantus) 31 units DAILY@0930 SC Last administered on 10/09/18at 10:28; Admin Dose 31 UNITS; Start 10/09/18 at 10:30 Insulin Aspart (Novolog Insulin Pen) NOVOLOG *MODERATE* ALGORITHM WITH MEALS BEDTIME SC Last administered on 10/09/18at 13:53; Admin Dose 8 UNIT; Start 10/09/18 at 11:30 Miscellaneous Information 1 ea NOTE XX ; Start 10/09/18 at 12:00 Glucose (Glutose) 15 gm Q15M PRN PO DECREASED GLUCOSE; Start 10/09/18 at 12:00 Glucose (Glutose) 22.5 gm Q15M PRN PO DECREASED GLUCOSE; Start 10/09/18 at 12:00 Dextrose (D50w Syringe) 25 ml Q15M PRN IV DECREASED GLUCOSE; Start 10/09/18 at 12:00 Dextrose (D50w Syringe) 50 ml Q15M PRN IV DECREASED GLUCOSE; Start 10/09/18 at 12:00 Glucagon (Glucagen) 1 mg Q15M PRN IM DECREASED GLUCOSE; Start 10/09/18 at 12:00 Glucose (Glutose) 15 gm Q15M PRN BUCCAL DECREASED GLUCOSE; Start 10/09/18 at 12:00 Diagnostic Test (Pha) (Accu-Chek) 1 ea AC MEALS AND BEDTIME XX Last administered on 10/09/18at 11:00; Admin Dose 1 EA; Start 10/09/18 at 11:00 RAQUEL MCDOWELL MD October 09, 2018 15:05
--- NOTE | 2018-10-09 15:33 | OPR ---
Date/Time of Note Date/Time of Note DATE: 10/09/18 TIME: 15:29 Operative Report Procedure Date: October 09, 2018 Preoperative Diagnosis ESRD and malfunctioning left upper extremity fistula Postoperative Diagnosis SAME Operation/Procedure Performed Right common femoral Madi catheter placement Surgeon see signature line [employer] NONE Anesthesia Type: other (LOCAL) Estimated Blood Loss: minimal Transfusion none Specimen NONE Grafts/Implants none Complications none Pt Condition Post Procedure: stable Procedure Description DATE OF OPERATION: 10/09/2017 SURGEON: Rod Pereyra MD PREOPERATIVE DIAGNOSIS: ESRD & malfunctioning left upper extremity fistula POSTOPERATIVE DIAGNOSIS: same ANESTHESIA: Local BLOOD LOSS: minimal COMPLICATIONS: None. ACCESS: Right common femoral vein INDICATIONS: This is a 67 year-old male with letter of medical conditions and malfunctioning left upper extremity fistula with ESRD requiring dialysis. As radiology is not available to place a Madi catheter for the patient today I was called urgently for dialysis access. The patient and family have been informed of the alternatives, risks, and benefits. Risks including but not limited to bleeding, thrombosis, embolization, myocardial infarction, , device malfunction, infection, pneumothorax, nephrotoxicity and patient has agreed to proceed. PROCEDURE: 1. Ultrasound guided access of right common femoral vein 2. Right common femoral vein non-tunneled hemodialysis catheter placement DESCRIPTION: The patient was in supine position in her ICU bed. Bed was placed in slight Trendelenburg position and the groin was prepped and draped with maximal sterile technique (sterile gloves, drapes, gown, and chlorhexidine). The central catheter was flushed with heparin to ensure function of each port. Landmarks were identified and the skin entry site was chosen using ultrasound guidance. The skin And subcutaneous tissue were anesthetized with 1% lidocaine. The vein was then located with a needle with a 10 mL syringe using ultrasound guidance. The needle was then directed towards the vein and was entered. The needle position was secured and syringe was removed. The hub was occluded to prevent venous air embolus. The guidewire was passed easily and the needle was removed while the wire was held in place. A small incision was then made at the point of the wire entry. The dilator was placed over the wire and the tract gently dilated. The catheter was fed over the wire, ensuring the wire exited from the port before advancing the catheter. The catheter was inserted to the desired depth and the wire removed. Each port was aspirated to ensure adequate blood flow and then flushed with heparinized saline solution. The catheter was secured in place with a 2-0 nylon suture and a sterile dressing was applied. The patient tolerated the procedure well and was in stable condition. All instrument, sponge and needle counts were correct 2. ROD PEREYRA MD October 09, 2018 15:33
--- NOTE | 2018-10-09 17:04 | CONS ---
Assessment/Plan Assessment/Plan Hospital Course (Demo Recall) CAD s/p CABG: CABG x4 10/07/18, ÁLVAREZ to LAD, SVG to ramus, SVG to OM1 sequenced to OM2. Doing well. Extubated 10/08, off pressors NSTEMI: Trop peak 1.1 and trended down. S/p cath 09/30/18 with diffuse multivessel CAD. CABG as below Upper GI bleed: due to anastomotic ulcer seen on EGD 09/26. No bleeding since. Black stools but on iron and stool occult negative. Hgb stable. Anemia: due to above. s/p 5 units PRBCs and 2 units intraop. Wenckebach: Mobitz 1. Not on BB. No pauses or high grade block. 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 Now stopped DM ESRD on HD MWF: hyperkalemia today, s/p incomplete HD HTN H/o Billroth -d/c metoprolol as pt has Wenckebach and intermittent bradycardia -ASA 325mg -lipitor 40mg -lasix 40mg PO BID -HD per nephrology Consultation Date/Type/Reason Admit Date/Time September 24, 2018 at 08:08 Initial Consult Date 09/24/18 Type of Consult Cardiology Requesting Provider: LAVON SEE Date/Time of Note DATE: 10/09/18 TIME: 16:59 24 HR Interval Summary Free Text/Dictation HD fistula malfunctioned again so HD cath placed in right femoral by Dr. Mejia. Otherwise hemodynamically stable. Still drowsy. No further fevers, WBCs trending down. Chest tubes removed Exam/Review of Systems Vital Signs Vitals Vital Signs Date Temp Pulse Resp B/P (MAP) Pulse Ox O2 O2 Flow FiO2 Time Delivery Rate 10/09/18 Nasal 2.0 16:00 Cannula 10/09/18 88 12:00 10/09/18 23 105/66 97 11:00 (79) 10/09/18 98.4 08:00 10/09/18 27 03:14 Intake and Output 10/08/18 10/08/18 10/09/18 1515:00 23:00 07:00 IntakeIntake Total 95.125 ml 123.6 ml 46.0 ml OutputOutput Total 965 ml 30 ml 235 ml BalanceBalance -869.875 ml 93.6 ml -189.0 ml Exam Constitutional: No alert (somnolent but easily arousable ) Psych: no complaints Head: normocephalic, atraumatic Neck: No jvd Respiratory: diminished breath sounds; No clear to auscultation Cardiovascular: regular rate and rhythm; No edema Gastrointestinal: soft, non-tender; No distended 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: nl mental status, nl speech Labs Result Diagram: 10/09/18 0333 10/09/18 0333 Results 24hrs Laboratory Tests Test 10/08/18 18:08 10/08/18 20:16 10/08/18 21:00 10/08/18 21:14 Bedside Glucose 145 193 176 Hematocrit 27.6 L Test 10/08/18 22:08 10/08/18 23:00 10/08/18 23:56 10/09/18 01:00 Bedside Glucose 169 179 159 158 Test 10/09/18 02:16 10/09/18 02:58 10/09/18 03:33 10/09/18 04:03 Bedside Glucose 159 157 147 White Blood Count 14.5 H Red Blood Count 2.72 L Hemoglobin 8.1 L Hematocrit 25.3 L Mean Corpuscular 93.0 Volume Mean Corpuscular 29.8 Hemoglobin Mean Corpuscular 32.0 Hemoglobin Concent Red Cell 16.0 H Distribution Width Platelet Count 189 # Mean Platelet Volume 11.7 H Immature 0.800 H Granulocytes % Neutrophils % 83.8 H Lymphocytes % 7.9 L Monocytes % 6.7 Eosinophils % 0.1 Basophils % 0.7 Nucleated Red Blood 0.0 Cells % Immature 0.120 H Granulocytes # Neutrophils # 12.2 H Lymphocytes # 1.1 Monocytes # 1.0 H Eosinophils # 0.0 Basophils # 0.1 Nucleated Red Blood 0.0 Cells # Sodium Level 140 Potassium Level 5.1 Chloride Level 105 Carbon Dioxide Level 19 L Anion Gap 16 H Blood Urea Nitrogen 54 H Creatinine 8.50 H Est Glomerular 6 L Filtrat Rate mL/min Glucose Level 143 Calcium Level 9.4 Magnesium Level 2.8 H Test 10/09/18 05:01 10/09/18 05:51 10/09/18 06:41 10/09/18 08:00 Bedside Glucose 135 132 133 157 Test 10/09/18 09:04 10/09/18 10:26 10/09/18 13:49 Bedside Glucose 167 214 271 H Medications Medications Current Medications Miscellaneous Information (* Miscellaneous Pharmacy Order) Treatment of Hypoglycemia: 1.BG 51... Per protocol XX ; Start 10/07/18 at 21:00 Hydromorphone HCl (Dilaudid) 0.2 mg Q15M PRN IV PAIN LEVEL 1-5; Start 10/07/18 at 21:00 Hydromorphone HCl (Dilaudid) 0.4 mg Q15M PRN IV PAIN LEVEL 6-10 Last administered on 10/08/18at 03:09; Admin Dose 0.4 MG; Start 10/07/18 at 21:00 Oxycodone/ Acetaminophen (Percocet (5/ 325)) 1 tab Q3H PRN PO PAIN LEVEL 1-5; Start 10/07/18 at 21:00 Oxycodone/ Acetaminophen (Percocet (5/ 325)) 2 tab Q3H PRN PO PAIN LEVEL 6-10; Start 10/07/18 at 21:00 Ondansetron HCl (Zofran Inj) 4 mg Q6H PRN IV NAUSEA AND/OR VOMITING Last administered on 10/09/18at 13:52; Admin Dose 4 MG; Start 10/07/18 at 21:00 Famotidine (Pepcid Iv) 20 mg DAILY IV Last administered on 10/09/18at 08:51; Admin Dose 20 MG; Start 10/08/18 at 09:00 Famotidine (Pepcid) 20 mg BID PO Last administered on 10/08/18at 20:29; Admin Dose 20 MG; Start 10/08/18 at 21:00; Status Hold Acetaminophen (Tylenol Tab) 650 mg Q3H PRN PO ELEVATED TEMPERATURE; Start 10/07/18 at 21:00 Potassium Chloride 50 ml @ 50 mls/hr SEE DIRECTION PRN IVPB K+ LEVEL; Start 10/07/18 at 21:00 Magnesium Sulfate/ Dextrose 100 ml @ 100 mls/hr PRN PRN IVPB PENDING LAB VALUE; Start 10/07/18 at 21:00 Diphenhydramine HCl (Benadryl) 25 mg PACU ORDER PRN IV .PRURITUS; Start 10/07/18 at 21:30 Nitroglycerin/ Dextrose 250 ml @ 1.5 mls/hr PER PROTOCOL IV ; Start 10/07/18 at 22:00 Dopamine HCl/ Dextrose 250 ml @ 7.695 mls/ hr PER PROTOCOL IV ; Start 10/07/18 at 22:00 Norepinephrine 250 ml @ 1.875 mls/ hr TITRATE IV Last administered on 10/08/18at 03:04; Admin Dose 3.75 MLS/HR; Start 10/08/18 at 03:00 Miscellaneous Information 1 ea NOTE XX ; Start 10/08/18 at 11:00 Albumin Human 250 ml @ 500 mls/hr PRN PRN IV CVP< 8, OR SBP<90; Start 10/08/18 at 13:30 Aspirin (Aspirin) 325 mg DAILY PO Last administered on 10/09/18at 08:51; Admin Dose 325 MG; Start 10/08/18 at 16:30 Atorvastatin Calcium (Lipitor) 40 mg HS PO Last administered on 10/08/18at 20:2 9; Admin Dose 40 MG; Start 10/08/18 at 21:00 Furosemide (Lasix) 40 mg BID DIURETICS PO Last administered on 10/09/18at 05:54; Admin Dose 40 MG; Start 10/08/18 at 18:00 Diagnostic Test (Pha) (Accu-Chek) 1 ea 02 XX ; Start 10/10/18 at 02:00 Insulin Glargine (Lantus) 31 units DAILY@0930 SC Last administered on 10/09/18at 10:28; Admin Dose 31 UNITS; Start 10/09/18 at 10:30 Insulin Aspart (Novolog Insulin Pen) NOVOLOG *MODERATE* ALGORITHM WITH MEALS BEDTIME SC Last administered on 10/09/18at 13:53; Admin Dose 8 UNIT; Start 10/09/18 at 11:30 Miscellaneous Information 1 ea NOTE XX ; Start 10/09/18 at 12:00 Glucose (Glutose) 15 gm Q15M PRN PO DECREASED GLUCOSE; Start 10/09/18 at 12:00 Glucose (Glutose) 22.5 gm Q15M PRN PO DECREASED GLUCOSE; Start 10/09/18 at 12:00 Dextrose (D50w Syringe) 25 ml Q15M PRN IV DECREASED GLUCOSE; Start 10/09/18 at 12:00 Dextrose (D50w Syringe) 50 ml Q15M PRN IV DECREASED GLUCOSE; Start 10/09/18 at 12:00 Glucagon (Glucagen) 1 mg Q15M PRN IM DECREASED GLUCOSE; Start 10/09/18 at 12:00 Glucose (Glutose) 15 gm Q15M PRN BUCCAL DECREASED GLUCOSE; Start 10/09/18 at 12:00 Diagnostic Test (Pha) (Accu-Chek) 1 ea AC MEALS AND BEDTIME XX Last administered on 10/09/18at 11:00; Admin Dose 1 EA; Start 10/09/18 at 11:00 LAVON SEE October 09, 2018 17:04
[2018-10-09] MEDS: ATORVASTATIN 40 MG TAB PO SCH (20:52)
[2018-10-10] VITALS (30 sets, daily range): BP systolic 90–157; BP diastolic 45–134; PULSE 76–110; RESP 18–27
[2018-10-10] MEDS: ACCU-CHEK XX SCH ×5 (02:00→21:50)
[2018-10-10] MEDS: FUROSEMIDE 40 MG TAB PO SCH ×2 (05:53→17:34)
[2018-10-10] MEDS: INSULIN ASPART [NOVOLOG] 3 ML PEN SC SCH ×6 (07:28→21:50)
[2018-10-10] MEDS: ASPIRIN 325 MG TAB PO SCH (08:28)
[2018-10-10] MEDS: FAMOTIDINE 20 MG INJ IV SCH (08:31)
[2018-10-10] MEDS: BALSAM PERU/CASTOR OIL 60 GM TUBE TOP SCH (08:32)
--- NOTE | 2018-10-10 08:44 | PN ---
Date/Time of Note Date/Time of Note DATE: 10/10/18 TIME: 08:41 Assessment/Plan Lines/Catheters IV Catheter Type (from Nrs): Central Line Pierre in Place (from Nrs): Yes Assessment/Plan Assessment/Plan tachy 100, labs ok. cxr clear yesterday. dialysis cath not working going back to IR. beta fabiana per cardiology. will start sq heparin Exam/Review of Systems Vital Signs Vitals Vital Signs Date Temp Pulse Resp B/P (MAP) Pulse Ox O2 O2 Flow FiO2 Time Delivery Rate 10/10/18 Nasal 2.0 07:32 Cannula 10/10/18 110 26 157/108 97 07:00 (124) 10/10/18 98.4 04:00 10/10/18 27 03:46 Intake and Output 10/09/18 10/09/18 10/10/18 1515:00 23:00 07:00 IntakeIntake Total 486 ml 290 ml 150 ml OutputOutput Total 250 ml 240 ml 600 ml BalanceBalance 236 ml 50 ml -450 ml Results Result Diagram: 10/10/18 0315 10/10/18 0315 LESLIE WESTON MD October 10, 2018 08:44
[2018-10-10] MEDS: HEPARIN 5,000 UNIT/1 ML VIAL SC SCH ×2 (09:41→23:50)
--- NOTE | 2018-10-10 10:06 | PN ---
Date/Time of Note Date/Time of Note DATE: 10/10/18 TIME: 10:01 Assessment/Plan VTE Prophylaxis Risk score (from Ns)>0 risk: 8 SCD applied (from Ns): No SCD contraindicated: other (PAD with dry gangrene) Pharmacological prophylaxis: heparin Lines/Catheters [facility] Central Line Central line still needed: Yes Urinary Cath still in place: No Assessment/Plan Assessment/Plan 67 yo with numerous comorbidities including dyslipidemia, IDDM, ESRD on HD and severe PVD who is also anticoagulated on Eliquis/Plavix,here with worsening malaise, found to have severe anemia/positive stool OB... also had NSTEMI #NSTEMI/Multivessel coronary artery disease - s/p LHC 09/30 - s/p CABG 10/07 - Cautiously resume beta blockers. - Anticoag, antiplatelet per CT surgery. - Continue statin. #Severe acute symptomatic blood loss anemia -Improved with multiple transfusion. -Continue iron #Upper GI bleed -resolved -s/p EGD showed anastomotic ulcer (hx billroth II) -On PPI/Carafate #Mobitz type I heart block - Now post CABG will resume beta blockers - Maintain on telemetry #ESRD, hemodialysis MWF -Management per nephrology -also getting diuretics as well #DMII - Glargine 31 u qam. - Currently blood sugars out of control. - Added mealtime aspart. Patient NPO today for procedure. 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 -Wound care #Obesity with BMI 36.3 -Weight reduction advised. #Anemia of ESRD -on Epogen with hemodialysis. DVT prophylaxis: SCDs PUD prophylaxis: Protonix 45 minutes critical care time spent on this patient. Result Diagram: 10/10/1831410/10/18314 Subjective 24 Hr Interval Summary Free Text/Dictation No acute overnight events. Slow flow through dialysis catheter. Will plan for IR to place permacath today. Patient too weak to walk with physical therapy yesterday. Exam/Review of Systems Exam Vitals Vital Signs Date Temp Pulse Resp B/P (MAP) Pulse Ox O2 O2 Flow FiO2 Time Delivery Rate 10/10/18 98.1 101 20 90/45 (60) 95 Nasal 2.0 08:30 Cannula 10/10/18 27 03:46 Intake and Output 10/09/18 10/09/18 10/10/18 1515:00 23:00 07:00 IntakeIntake Total 486 ml 290 ml 150 ml OutputOutput Total 250 ml 240 ml 620 ml BalanceBalance 236 ml 50 ml -470 ml Exam Constitutional: Obese man sleeping but arousable. HEENT: Head atraumatic and normocephalic. NECK: Supple without lymphadenopathy. PULM: Diminished lung excursion bilaterally. Diminished basilar breath sounds. CHEST: sternotomy site with clean dressing. Drains out. HEART: S1, S2. Regular rate and rhythm. ABDOMEN: Soft, nondistended. EXTREMITIES: BLE nonpitting edema. R foot with palpable DP pulse. L foot thready DP pulse. 3rd toe and medial 1st toe dry gangrene. There is possibly some extension along the 3rd metatarsal new from yesterday. Results Results 24hrs Laboratory Tests Test 10/09/18 10:26 10/09/18 13:49 10/09/18 18:04 10/09/18 20:34 Bedside Glucose 214 271 H 221 H 223 H Test 10/10/18 03:15 10/10/18 04:26 10/10/18 06:48 White Blood Count 13.6 H Red Blood Count 2.98 L Hemoglobin 8.7 L Hematocrit 27.8 L Mean Corpuscular 93.3 Volume Mean Corpuscular 29.2 Hemoglobin Mean Corpuscular 31.3 L Hemoglobin Concent Red Cell 15.9 H Distribution Width Platelet Count 223 Mean Platelet Volume 12.0 H Immature 1.300 H Granulocytes % Neutrophils % 88.1 H Lymphocytes % 8.3 L Monocytes % 1.6 Eosinophils % 0.4 Basophils % 0.3 Nucleated Red Blood 0.0 Cells % Immature 0.180 H Granulocytes # Neutrophils # 12.0 H Lymphocytes # 1.1 Monocytes # 0.2 L Eosinophils # 0.1 Basophils # 0.0 Nucleated Red Blood 0.0 Cells # Sodium Level 137 Potassium Level 5.3 H Chloride Level 103 Carbon Dioxide Level 17 L Anion Gap 17 H Blood Urea Nitrogen 64 H Creatinine 8.85 H Est Glomerular 6 L Filtrat Rate mL/min Glucose Level 235 H Calcium Level 9.0 Magnesium Level 2.7 H Bedside Glucose 249 H 285 H Medications Medication Current Medications Miscellaneous Information (* Miscellaneous Pharmacy Order) Treatment of Hypoglycemia: 1.BG 51... Per protocol XX ; Start 10/07/18 at 21:00 Hydromorphone HCl (Dilaudid) 0.2 mg Q15M PRN IV PAIN LEVEL 1-5; Start 10/07/18 at 21:00 Hydromorphone HCl (Dilaudid) 0.4 mg Q15M PRN IV PAIN LEVEL 6-10 Last administered on 10/08/18at 03:09; Admin Dose 0.4 MG; Start 10/07/18 at 21:00 Oxycodone/ Acetaminophen (Percocet (5/ 325)) 1 tab Q3H PRN PO PAIN LEVEL 1-5; Start 10/07/18 at 21:00 Oxycodone/ Acetaminophen (Percocet (5/ 325)) 2 tab Q3H PRN PO PAIN LEVEL 6-10; Start 10/07/18 at 21:00 Ondansetron HCl (Zofran Inj) 4 mg Q6H PRN IV NAUSEA AND/OR VOMITING Last administered on 10/09/18at 13:52; Admin Dose 4 MG; Start 10/07/18 at 21:00 Famotidine (Pepcid Iv) 20 mg DAILY IV Last administered on 10/10/18at 08:31; Admin Dose 20 MG; Start 10/08/18 at 09:00 Famotidine (Pepcid) 20 mg BID PO Last administered on 10/08/18at 20:29; Admin Dose 20 MG; Start 10/08/18 at 21:00; Status Hold Acetaminophen (Tylenol Tab) 650 mg Q3H PRN PO ELEVATED TEMPERATURE; Start 10/07/18 at 21:00 Potassium Chloride 50 ml @ 50 mls/hr SEE DIRECTION PRN IVPB K+ LEVEL; Start 10/07/18 at 21:00 Magnesium Sulfate/ Dextrose 100 ml @ 100 mls/hr PRN PRN IVPB PENDING LAB VALUE; Start 10/07/18 at 21:00 Diphenhydramine HCl (Benadryl) 25 mg PACU ORDER PRN IV .PRURITUS; Start 10/07/18 at 21:30 Nitroglycerin/ Dextrose 250 ml @ 1.5 mls/hr PER PROTOCOL IV ; Start 10/07/18 at 22:00 Dopamine HCl/ Dextrose 250 ml @ 7.695 mls/ hr PER PROTOCOL IV ; Start 10/07/18 at 22:00 Norepinephrine 250 ml @ 1.875 mls/ hr TITRATE IV Last administered on 10/08/18at 03:04; Admin Dose 3.75 MLS/HR; Start 10/08/18 at 03:00 Miscellaneous Information 1 ea NOTE XX ; Start 10/08/18 at 11:00 Albumin Human 250 ml @ 500 mls/hr PRN PRN IV CVP< 8, OR SBP<90; Start 10/08/18 at 13:30 Aspirin (Aspirin) 325 mg DAILY PO Last administered on 10/09/18at 08:51; Admin Dose 325 MG; Start 10/08/18 at 16:30 Atorvastatin Calcium (Lipitor) 40 mg HS PO Last administered on 10/09/18at 20:52; Admin Dose 40 MG; Start 10/08/18 at 21:00 Furosemide (Lasix) 40 mg BID DIURETICS PO Last administered on 10/10/18at 05 :53; Admin Dose 40 MG; Start 10/08/18 at 18:00 Diagnostic Test (Pha) (Accu-Chek) 1 ea 02 XX ; Start 10/10/18 at 02:00 Insulin Aspart (Novolog Insulin Pen) NOVOLOG *MODERATE* ALGORITHM WITH MEALS BEDTIME SC Last administered on 10/10/18at 07:28; Admin Dose 8 UNIT; Start 10/09/18 at 11:30 Miscellaneous Information 1 ea NOTE XX ; Start 10/09/18 at 12:00 Glucose (Glutose) 15 gm Q15M PRN PO DECREASED GLUCOSE; Start 10/09/18 at 12:00 Glucose (Glutose) 22.5 gm Q15M PRN PO DECREASED GLUCOSE; Start 10/09/18 at 12:00 Dextrose (D50w Syringe) 25 ml Q15M PRN IV DECREASED GLUCOSE; Start 10/09/18 at 12:00 Dextrose (D50w Syringe) 50 ml Q15M PRN IV DECREASED GLUCOSE; Start 10/09/18 at 12:00 Glucagon (Glucagen) 1 mg Q15M PRN IM DECREASED GLUCOSE; Start 10/09/18 at 12:00 Glucose (Glutose) 15 gm Q15M PRN BUCCAL DECREASED GLUCOSE; Start 10/09/18 at 12:00 Diagnostic Test (Pha) (Accu-Chek) 1 ea AC MEALS AND BEDTIME XX Last administered on 10/10/18at 07:25; Admin Dose 1 EA; Start 10/09/18 at 11:00 Insulin Glargine (Lantus) 35 units DAILY@0830 SC ; Start 10/10/18 at 09:00 Insulin Aspart (Novolog Insulin Pen) 8 unit WITH MEALS SC ; Start 10/10/18 at 11:30 Heparin Sodium (Porcine) (Heparin (5000 Units/1ml)) 5,000 unit BID SC Last administered on 10/10/18at 09:41; Admin Dose 5,000 UNIT; Start 10/10/18 at 09:00 AUGUST LUCIANO MD October 10, 2018 10:06
[2018-10-10] MEDS: INSULIN GLARGINE [LANTus] (100 UNITS/ML) SYG SC SCH (10:08)
--- NOTE | 2018-10-10 10:56 | CONS ---
Assessment/Plan Assessment/Plan Assessment/Plan (Daily) 1. acute Hyperkalemia due to GI bleeding- resolved 2.Acute fluid overload with Uremia BUN 111 on admission 3. acute GI bleeding causing acute blood loss anemia- S/p Status post EGD/colonoscopy 09/27/19 -Anastomosis ulcer -Normal colonoscopy 4. Severe Anemia with Hb 5.8 on admission s/p 5 U PRBC transfusion for GI bleeding during this admission 5. H/O HTN 6. H/O peripherla vascular disease 7. ESRD on HD -follow up at [facility] [place] scheduled HD on [facility] 8. acute NSTEMI s/p LHC on 09/30/18 that showed 3 V CAD- s/p CABG on 10/07/18 Plan: s/p CABG on 09/27/18- remained all three Chest tubes, A line removed, s/p Extubation doing well, today AM pt is more sleepy , did not had a enough HD last time due to access clotted, s/p Randy catheter placment which did not work well, plan for permacath today by Radiology HD plan for today and Tomorrow Lasix 40mg pO BID - will give extra dose of lasix 20mg IV x [address] surgery, pulmonary following will follow up Consultation Date/Type/Reason Admit Date/Time September 24, 2018 at 08:08 Initial Consult Date 09/24/18 Type of Consult NEPHROLOGY Requesting Provider: LAVON SEE Date/Time of Note DATE: 10/10/18 TIME: 10:53 24 HR Interval Summary Free Text/Dictation left IJ randy HD catheter did not work well, did not finish his HD overnight, BP stable , today AM more sleepy Exam/Review of Systems Exam Vitals Vital Signs Date Temp Pulse Resp B/P (MAP) Pulse Ox O2 O2 Flow FiO2 Time Delivery Rate 10/10/18 98.1 101 20 90/45 (60) 95 Nasal 2.0 08:30 Cannula 10/10/18 27 03:46 Intake and Output 10/09/18 10/09/18 10/10/18 1515:00 23:00 07:00 IntakeIntake Total 486 ml 290 ml 150 ml OutputOutput Total 250 ml 240 ml 620 ml BalanceBalance 236 ml 50 ml -470 ml Exam Constitutional: arousable, sleepy Neck: jvd, Left IJ Quitnon HD catheter Respiratory: crackles/rales, diminished breath sounds Cardiovascular: regular rate and rhythm, nl pulses Gastrointestinal: soft, non-tender Musculoskeletal: swelling Extremities: normal pulses 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: arousable, sleepy, non focal Lymph: nl lymph nodes Results Result Diagram: 10/10/18 0315 10/10/18 0315 Results 24hrs Laboratory Tests Test 10/09/18 13:49 10/09/18 18:04 10/09/18 20:34 10/10/18 03:15 Bedside Glucose 271 H 221 H 223 H White Blood Count 13.6 H Red Blood Count 2.98 L Hemoglobin 8.7 L Hematocrit 27.8 L Mean Corpuscular 93.3 Volume Mean Corpuscular 29.2 Hemoglobin Mean Corpuscular 31.3 L Hemoglobin Concent Red Cell 15.9 H Distribution Width Platelet Count 223 Mean Platelet Volume 12.0 H Immature 1.300 H Granulocytes % Neutrophils % 88.1 H Lymphocytes % 8.3 L Monocytes % 1.6 Eosinophils % 0.4 Basophils % 0.3 Nucleated Red Blood 0.0 Cells % Immature 0.180 H Granulocytes # Neutrophils # 12.0 H Lymphocytes # 1.1 Monocytes # 0.2 L Eosinophils # 0.1 Basophils # 0.0 Nucleated Red Blood 0.0 Cells # Sodium Level 137 Potassium Level 5.3 H Chloride Level 103 Carbon Dioxide Level 17 L Anion Gap 17 H Blood Urea Nitrogen 64 H Creatinine 8.85 H Est Glomerular 6 L Filtrat Rate mL/min Glucose Level 235 H Calcium Level 9.0 Magnesium Level 2.7 H Test 10/10/18 04:26 10/10/18 06:48 Bedside Glucose 249 H 285 H Medications Medication Current Medications Miscellaneous Information (* Miscellaneous Pharmacy Order) Treatment of Hypoglycemia: 1.BG 51... Per protocol XX ; Start 10/07/18 at 21:00 Hydromorphone HCl (Dilaudid) 0.2 mg Q15M PRN IV PAIN LEVEL 1-5; Start 10/07/18 at 21:00 Hydromorphone HCl (Dilaudid) 0.4 mg Q15M PRN IV PAIN LEVEL 6-10 Last administered on 10/08/18at 03:09; Admin Dose 0.4 MG; Start 10/07/18 at 21:00 Oxycodone/ Acetaminophen (Percocet (5/ 325)) 1 tab Q3H PRN PO PAIN LEVEL 1-5; Start 10/07/18 at 21:00 Oxycodone/ Acetaminophen (Percocet (5/ 325)) 2 tab Q3H PRN PO PAIN LEVEL 6-10; Start 10/07/18 at 21:00 Ondansetron HCl (Zofran Inj) 4 mg Q6H PRN IV NAUSEA AND/OR VOMITING Last administered on 10/09/18at 13:52; Admin Dose 4 MG; Start 10/07/18 at 21:00 Famotidine (Pepcid Iv) 20 mg DAILY IV Last administered on 10/10/18at 08:31; Admin Dose 20 MG; Start 10/08/18 at 09:00 Famotidine (Pepcid) 20 mg BID PO Last administered on 10/08/18at 20:29; Admin Dose 20 MG; Start 10/08/18 at 21:00; Status Hold Acetaminophen (Tylenol Tab) 650 mg Q3H PRN PO ELEVATED TEMPERATURE; Start 10/07/18 at 21:00 Potassium Chloride 50 ml @ 50 mls/hr SEE DIRECTION PRN IVPB K+ LEVEL; Start 10/07/18 at 21:00 Magnesium Sulfate/ Dextrose 100 ml @ 100 mls/hr PRN PRN IVPB PENDING LAB VALUE; Start 10/07/18 at 21:00 Diphenhydramine HCl (Benadryl) 25 mg PACU ORDER PRN IV .PRURITUS; Start 10/07/18 at 21:30 Nitroglycerin/ Dextrose 250 ml @ 1.5 mls/hr PER PROTOCOL IV ; Start 10/07/18 at 22:00 Dopamine HCl/ Dextrose 250 ml @ 7.695 mls/ hr PER PROTOCOL IV ; Start 10/07/18 at 22:00 Norepinephrine 250 ml @ 1.875 mls/ hr TITRATE IV Last administered on 10/08/18at 03:04; Admin Dose 3.75 MLS/HR; Start 10/08/18 at 03:00 Miscellaneous Information 1 ea NOTE XX ; Start 10/08/18 at 11:00 Albumin Human 250 ml @ 500 mls/hr PRN PRN IV CVP< 8, OR SBP<90; Start 10/08/18 at 13:30 Aspirin (Aspirin) 325 mg DAILY PO Last administered on 10/09/18at 08:51; Admin Dose 325 MG; Start 10/08/18 at 16:30 Atorvastatin Calcium (Lipitor) 40 mg HS PO Last administered on 10/09/18at 20:52; Admin Dose 40 MG; Start 10/08/18 at 21:00 Furosemide (Lasix) 40 mg BID DIURETICS PO Last administered on 10/10/18at 05:53; Admin Dose 40 MG; Start 10/08/18 at 18:00 Diagnostic Test (Pha) (Accu-Chek) 1 ea 02 XX ; Start 10/10/18 at 02:00 Insulin Aspart (Novolog Insulin Pen) NOVOLOG *MODERATE* ALGORITHM WITH MEALS BEDTIME SC Last administered on 10/10/18 07:28; Admin Dose 8 UNIT; Start 10/09/18 at 11:30 Miscellaneous Information 1 ea NOTE XX ; Start 10/09/18 at 12:00 Glucose (Glutose) 15 gm Q15M PRN PO DECREASED GLUCOSE; Start 10/09/18 at 12:00 Glucose (Glutose) 22.5 gm Q15M PRN PO DECREASED GLUCOSE; Start 10/09/18 at 12:00 Dextrose (D50w Syringe) 25 ml Q15M PRN IV DECREASED GLUCOSE; Start 10/09/18 at 12:00 Dextrose (D50w Syringe) 50 ml Q15M PRN IV DECREASED GLUCOSE; Start 10/09/18 at 12:00 Glucagon (Glucagen) 1 mg Q15M PRN IM DECREASED GLUCOSE; Start 10/09/18 at 12:00 Glucose (Glutose) 15 gm Q15M PRN BUCCAL DECREASED GLUCOSE; Start 10/09/18 at 12:00 Diagnostic Test (Pha) (Accu-Chek) 1 ea AC MEALS AND BEDTIME XX Last administered on 10/10/18at 07:25; Admin Dose 1 EA; Start 10/09/18 at 11:00 Insulin Glargine (Lantus) 35 units DAILY@0830 SC Last administered on 10/10/18at 10:08; Admin Dose 35 UNITS; Start 10/10/18 at 09:00 Insulin Aspart (Novolog Insulin Pen) 8 unit WITH MEALS SC ; Start 10/10/18 at 11:30 Heparin Sodium (Porcine) (Heparin (5000 Units/1ml)) 5,000 unit BID SC Last administered on 10/10/18at 09:41; Admin Dose 5,000 UNIT; Start 10/10/18 at 09:00 RAQUEL MCDOWELL MD October 10, 2018 10:56
[2018-10-10] MEDS ORDERED: HEPARIN 1000 UNITS/ML 10 ML INJ CATHETER SCH (11:00)
--- NOTE | 2018-10-10 11:25 | CONS ---
Assessment/Plan Assessment/Plan Hospital Course (Demo Recall) CAD s/p CABG: CABG x4 10/07/18, ÁLVAREZ to LAD, SVG to ramus, SVG to OM1 sequenced to OM2. Doing well. Extubated 10/08, off pressors NSTEMI: Trop peak 1.1 and trended down. S/p cath 09/30/18 with diffuse multivessel CAD. CABG as below Upper GI bleed: due to anastomotic ulcer seen on EGD 09/26. No bleeding since. Black stools but on iron and stool occult negative. Hgb stable. Anemia: due to above. s/p 5 units PRBCs and 2 units intraop. Wenckebach: Mobitz 1. Not on BB. No pauses or high grade block. 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 Now stopped DM ESRD on HD MWF: both fistula and right femoral HD cath nonfunctional. Plan for tunneled cath HTN H/o Billroth -continue to hold metoprolol as pt has Wenckebach and intermittent bradycardia though none over past 24hrs. Will consider trial over the weekend if no AV block -ASA 325mg -lipitor 40mg -lasix 40mg PO BID -HD per nephrology Consultation Date/Type/Reason Admit Date/Time September 24, 2018 at 08:08 Initial Consult Date 09/24/18 Type of Consult Cardiology Requesting Provider: LAVON SEE Date/Time of Note DATE: 10/10/18 TIME: 11:23 24 HR Interval Summary Free Text/Dictation Mentation continues to improve. Femoral HD cath also not functional. Plan for tunneled cath today. No complaints. Tried to work with PT, sat at the edge of the bed. Exam/Review of Systems Vital Signs Vitals Vital Signs Date Temp Pulse Resp B/P (MAP) Pulse Ox O2 O2 Flow FiO2 Time Delivery Rate 10/10/18 98.1 101 20 90/45 (60) 95 Nasal 2.0 08:30 Cannula 10/10/18 27 03:46 Intake and Output 10/09/18 10/09/18 10/10/18 1515:00 23:00 07:00 IntakeIntake Total 486 ml 290 ml 150 ml OutputOutput Total 250 ml 240 ml 620 ml BalanceBalance 236 ml 50 ml -470 ml Exam Constitutional: alert, oriented Psych: no complaints, nl mood/affect Head: normocephalic, atraumatic Neck: supple; No jvd Respiratory: clear to auscultation, diminished breath sounds; No crackles/rales Cardiovascular: regular rate and rhythm; No edema Gastrointestinal: soft, non-tender; No distended 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: nl mental status, nl speech Labs Result Diagram: 10/10/185 10/10/18 031 Results 24hrs Laboratory Tests Test 10/09/18 13:49 10/09/18 18:04 10/09/18 20:34 10/10/18 03:15 Bedside Glucose 271 H 221 H 223 H White Blood Count 13.6 H Red Blood Count 2.98 L Hemoglobin 8.7 L Hematocrit 27.8 L Mean Corpuscular 93.3 Volume Mean Corpuscular 29.2 Hemoglobin Mean Corpuscular 31.3 L Hemoglobin Concent Red Cell 15.9 H Distribution Width Platelet Count 223 Mean Platelet Volume 12.0 H Immature 1.300 H Granulocytes % Neutrophils % 88.1 H Lymphocytes % 8.3 L Monocytes % 1.6 Eosinophils % 0.4 Basophils % 0.3 Nucleated Red Blood 0.0 Cells % Immature 0.180 H Granulocytes # Neutrophils # 12.0 H Lymphocytes # 1.1 Monocytes # 0.2 L Eosinophils # 0.1 Basophils # 0.0 Nucleated Red Blood 0.0 Cells # Sodium Level 137 Potassium Level 5.3 H Chloride Level 103 Carbon Dioxide Level 17 L Anion Gap 17 H Blood Urea Nitrogen 64 H Creatinine 8.85 H Est Glomerular 6 L Filtrat Rate mL/min Glucose Level 235 H Calcium Level 9.0 Magnesium Level 2.7 H Test 10/10/18 04:26 10/10/18 06:48 Bedside Glucose 249 H 285 H Medications Medications Current Medications Miscellaneous Information (* Miscellaneous Pharmacy Order) Treatment of Hypoglycemia: 1.BG 51... Per protocol XX ; Start 10/07/18 at 21:00 Hydromorphone HCl (Dilaudid) 0.2 mg Q15M PRN IV PAIN LEVEL 1-5; Start 10/07/18 at 21:00 Hydromorphone HCl (Dilaudid) 0.4 mg Q15M PRN IV PAIN LEVEL 6-10 Last administered on 10/08/18at 03:09; Admin Dose 0.4 MG; Start 10/07/18 at 21:00 Oxycodone/ Acetaminophen (Percocet (5/ 325)) 1 tab Q3H PRN PO PAIN LEVEL 1-5; Start 10/07/18 at 21:00 Oxycodone/ Acetaminophen (Percocet (5/ 325)) 2 tab Q3H PRN PO PAIN LEVEL 6-10; Start 10/07/18 at 21:00 Ondansetron HCl (Zofran Inj) 4 mg Q6H PRN IV NAUSEA AND/OR VOMITING Last administered on 10/09/18at 13:52; Admin Dose 4 MG; Start 10/07/18 at 21:00 Famotidine (Pepcid Iv) 20 mg DAILY IV Last administered on 10/10/18at 08:31; Admin Dose 20 MG; Start 10/08/18 at 09:00 Famotidine (Pepcid) 20 mg BID PO Last administered on 10/08/18at 20:29; Admin Dose 20 MG; Start 10/08/18 at 21:00; Status Hold Acetaminophen (Tylenol Tab) 650 mg Q3H PRN PO ELEVATED TEMPERATURE; Start 10/07/18 at 21:00 Potassium Chloride 50 ml @ 50 mls/hr SEE DIRECTION PRN IVPB K+ LEVEL; Start 10/07/18 at 21:00 Magnesium Sulfate/ Dextrose 100 ml @ 100 mls/hr PRN PRN IVPB PENDING LAB VALUE; Start 10/07/18 at 21:00 Diphenhydramine HCl (Benadryl) 25 mg PACU ORDER PRN IV .PRURITUS; Start 10/07/18 at 21:30 Nitroglycerin/ Dextrose 250 ml @ 1.5 mls/hr PER PROTOCOL IV ; Start 10/07/18 at 22:00 Dopamine HCl/ Dextrose 250 ml @ 7.695 mls/ hr PER PROTOCOL IV ; Start 10/07/18 at 22:00 Norepinephrine 250 ml @ 1.875 mls/ hr TITRATE IV Last administered on 10/08/18at 03:04; Admin Dose 3.75 MLS/HR; Start 10/08/18 at 03:00 Miscellaneous Information 1 ea NOTE XX ; Start 10/08/18 at 11:00 Albumin Human 250 ml @ 500 mls/hr PRN PRN IV CVP< 8, OR SBP<90; Start 10/08/18 at 13:30 Aspirin (Aspirin) 325 mg DAILY PO Last administered on 10/09/18at 08:51; Admin Dose 325 MG; Start 10/08/18 at 16:30 Atorvastatin Calcium (Lipitor) 40 mg HS PO Last administered on 10/09/18at 20:52; Admin Dose 40 MG; Start 10/08/18 at 21:00 Furosemide (Lasix) 40 mg BID DIURETICS PO Last administered on 10/10/18at 05:53; Admin Dose 40 MG; Start 10/08/18 at 18:00 Diagnostic Test (Pha) (Accu-Chek) 1 ea 02 XX ; Start 10/10/18 at 02:00 Insulin Aspart (Novolog Insulin Pen) NOVOLOG *MODERATE* ALGORITHM WITH MEALS BEDTIME SC Last administered on 10/10/18at 07:28; Admin Dose 8 UNIT; Start 10/09/18 at 11:30 Miscellaneous Information 1 ea NOTE XX ; Start 10/09/18 at 12:00 Glucose (Glutose) 15 gm Q15M PRN PO DECREASED GLUCOSE; Start 10/09/18 at 12:00 Glucose (Glutose) 22.5 gm Q15M PRN PO DECREASED GLUCOSE; Start 10/09/18 at 12:00 Dextrose (D50w Syringe) 25 ml Q15M PRN IV DECREASED GLUCOSE; Start 10/09/18 at 12:00 Dextrose (D50w Syringe) 50 ml Q15M PRN IV DECREASED GLUCOSE; Start 10/09/18 at 12:00 Glucagon (Glucagen) 1 mg Q15M PRN IM DECREASED GLUCOSE; Start 10/09/18 at 12:00 Glucose (Glutose) 15 gm Q15M PRN BUCCAL DECREASED GLUCOSE; Start 10/09/18 at 12:00 Diagnostic Test (Pha) (Accu-Chek) 1 ea AC MEALS AND BEDTIME XX Last administered on 10/10/18at 07:25; Admin Dose 1 EA; Start 10/09/18 at 11:00 Insulin Glargine (Lantus) 35 units DAILY@0830 SC Last administered on 10/10/18at 10:08; Admin Dose 35 UNITS; Start 10/10/18 at 09:00 Insulin Aspart (Novolog Insulin Pen) 8 unit WITH MEALS SC ; Start 10/10/18 at 11:30 Heparin Sodium (Porcine) (Heparin (5000 Units/1ml)) 5,000 unit BID SC Last administered on 10/10/18at 09:41; Admin Dose 5,000 UNIT; Start 10/10/18 at 09:00 Heparin Sodium (Porcine) (Heparin (1000 Units/ml)) 4,000 unit AFTER DIALYSIS CATHETER ; Start 10/10/18 at 11:00; Stop 10/11/18 at 10:59 LAVON SEE October 10, 2018 11:25
--- NOTE | 2018-10-10 12:49 | RADRPT ---
Transesophageal Echo Report Preliminary Patient Name: ESTELLE NORTONPatient ID: [id number] : 1950 (67y 10m)Study Date: 09/30/2018 1:27:50 PM Gender: MAccession #: [id number] Tech: NABOR Location: Ref.Physician: LAVON SEE Height(Cm): BSA: Weight(Kg): Quality: GoodAccount #: Procedures: Transesophageal Echo Report: Transesophageal echocardiogram was performed. PREP: Patient received pre-procedure education; informed consent, baseline vital signs, and focused history and physical were obtained. SEDATION: Oropharangeal anesthesia was achieved using 2-3 sprays of Hurricane topical anesthesia. Systemic sedation was achieved. ESOPHAGEAL INTUBATION: After suitable sedation, the probe was passed. Continuous pulse oximetry, electrocardiographic, and blood pressure monitoring were maintained throughout the procedure. Standard views were obtained in the transgastric, mid-esophageal, and basal planes at approximately 0, 30, 90, and 120 degrees. In addition, a normal saline study was performed. No immediate MIKE complications noted. Electronically Signed By: 2018-10-06 10:06:44 PDT
[2018-10-10] MEDS ORDERED: LIDOCAINE 1%/EPI (1:100,000) (MDV) 20 ML ONE (14:46)
[2018-10-10] MEDS ORDERED: CEFAZOLIN 1 GM/50 ML (PMX) 50 ML IVPB ONE (14:46)
[2018-10-10] MEDS ORDERED: HEPARIN 1000 UNITS/ML 10 ML INJ ONE (14:47)
[2018-10-10] MEDS ORDERED: IOHEXOL 300MG/ML 30 ML BTL ONE (15:20)
[2018-10-10] MEDS ORDERED: FUROSEMIDE 20 MG INJ IV STA (16:14)
[2018-10-10] MEDS ORDERED: ALTEPLASE (CATHFLO) 2 MG INJ CATHETER STA (18:03)
[2018-10-10] MEDS ORDERED: HEPARIN 1000 UNITS/ML 10 ML INJ CATHETER ONE (18:30)
--- NOTE | 2018-10-10 20:21 | PN ---
Date/Time of Note Date/Time of Note DATE: 10/10/18 TIME: 20:21 Assessment/Plan Lines/Catheters IV Catheter Type (from Nrs): Central Line Pierre in Place (from Nrs): No Assessment/Plan Chief Complaint/Hosp Course -No current vascular intervention at this time given severe CAD S/P CABG. Life over limb at this time. -LLE toe gangrene dry and stable -Will continue to monitor his progress -Bilateral lower extremity atherosclerosis with left lower extremity with left lower extremity third toe gangrene: It seems that the patient's left lower extremity third toe has become dry gangrene and currently stable. Unfortunately his first and second toe have also become gangrene with no significant erythema. The patient's foot pain has gradually improved since we had seen him a month ago and followed him in the office over the past few weeks. From a vascular surgery standpoint, recommend no current intervention as the patient has likely an upper gastrointestinal bleed. We are hoping that the patient's lower extremity atherosclerotic disease will not worsen during this period of time. Resume anticoagulation and antiplatelet therapy when cleared by multidisciplinary team. There is concern he may require an amputation should he not improve and develop worsening gangrene. This was discussed in detail with the family given his plethora of medical conditions -Bilateral lower extremity varicose veins and edema: The patient has component of mixed disease (venous insufficiency and arterial sufficiency). At the moment, we recommend elevation of the bilateral lower extremities while at rest. No further intervention will be needed and can be followed as an outpatient in regards to venous insufficiency. -End-stage renal disease: At the moment the patient's left upper extremity fistula is nonfunctional. will place a new Madi catheter -S/P Right femoral Madi catheter - malfunctional Optimize vascular status (BP meds, diet, nutrition, exercise, sugar control). We will resume antiplatelet therapy once cleared from GI standpoint. Discussed findings, plan and management with the patient and at the bedside and they understand. Thank you for allowing us to partake in the care of your patient. Please call with any questions. A certified lath tier was present throughout the conversation. Subjective 24 Hr Interval Summary patient groin dialysis catheter malfunctioned during dialysis. IR was called yesterday for Madi catheter placement, however no radiologist was available to place the line. Order for a Madi/perm catheter was place for IR colleagues. It appears an attempt of a right IJ catheter was made and unsuccessful, A right groin catheter was attempted to be exchanged but noted an IVC stenosis. IR did not feel comfortable to exchange the left cordis to a tri- lumen dialysis catheter. I was further informed IR coverage for tomorrow is unable to place such catheters and beyond the scope of their practice Exam/Review of Systems Vital Signs Vitals Vital Signs Date Temp Pulse Resp B/P (MAP) Pulse Ox O2 O2 Flow FiO2 Time Delivery Rate 10/27/18 97.8 76 20 123/52 99 07:29 (75) 10/27/18 3.0 05:37 10/27/18 Nasal 00:54 Cannula Intake and Output 10/26/18 10/26/18 10/27/18 1515:00 23:00 07:00 IntakeIntake Total 600 ml 400 ml BalanceBalance 600 ml 400 ml Exam Free Text/Dictation GENERAL: Awake. PULMONARY: Coarse BS bilaterally, left cordis CARDIOVASCULAR: S1, S2 present. Dressing intact ABDOMEN: Soft, nontender, nondistended. Bowel sounds positive. Large truncal obesity. EXTREMITIES: Right lower extremity palpable femoral pulse, nonpalpable pedal pulse. Motor, sensory intact. Cap refill 3 to 4 seconds. Presence of varicose veins and large leg. Left lower extremity palpable femoral pulse, nonpalpable pedal pulse. Motor, sensory intact. Cap refill 3 to 4 seconds. Third toe gangrene, First and second toe with previous bluish discoloration and formation of gangrene now. Heel gangrene developing Varicose veins and edema of the left lower extremity with presence of mild lipodermatosclerosis. Left upper extremity: Palpable brachial pulse, motor/sensory intact, fistula with bruit and thrill present Results Result Diagram: 10/27/18 0553 VANIA PEREYRA MD October 10, 2018 20:21
--- NOTE | 2018-10-10 20:51 | OPR ---
Date/Time of Note Date/Time of Note DATE: 10/10/18 TIME: 20:41 Operative Report Procedure Date: October 10, 2018 Preoperative Diagnosis End-stage renal disease and malfunctioning right femoral groin catheter Postoperative Diagnosis Same Operation/Procedure Performed Left internal jugular vein Madi catheter placement Surgeon see signature line Collision Technician None Anesthesia Type: other Estimated Blood Loss: none Transfusion none Specimen None Grafts/Implants none Complications none Pt Condition Post Procedure: critical Procedure Description DATE OF OPERATION: 10/10/2018 SURGEON: Rod Pereyra MD PREOPERATIVE DIAGNOSIS: End-stage renal disease and malfunctioning Madi catheter POSTOPERATIVE DIAGNOSIS: same ANESTHESIA: Local BLOOD LOSS: minimal COMPLICATIONS: None. HEPARIN: None ACCESS: Left internal jugular vein CLOSURE: Manual compression & 3-0 Nylon suture INDICATIONS: This is a 67 year-old male with a plethora of medical conditions and a nonfunctioning left upper extremity fistula. He had a right common femor al vein Madi catheter placement that has malfunctioned. Patient underwent attempts by radiology for a new catheter placement. Have discussed options with the family and decision for exchange of the cordis to a Madi catheter was agreed upon by our multidisciplinary team. Patient family have been informed of the alternatives, risks, and benefits. Risks including but not limited to bleeding, thrombosis, embolization, myocardial infarction, , device malfunction, infection, pneumothorax, nephrotoxicity and patient has agreed to proceed. PROCEDURE: Left internal jugular vein central catheter placement DESCRIPTION: The patient was in ICU bed and positioned in the supine position on the bed. Sedation was administered without complication. The neck and chest wall was shaved, prepped and draped in the standard sterile fashion. A time-out was completed verifying correct patient, procedure, site, positioning, implant and special equipment prior to beginning this procedure. Local anesthesia was infiltrated in the region of the right neck. Patients head was turned to the contralateral side. The catheter was flushed with saline to ensure function of each port. Landmarks were identified. A central catheter kit was used. The skin and subcutaneous tissues were anesthetized with 10 ml of 1% lidocaine. Using the guidewire it was advanced under direct visualization via the pig tail port of the cordis catheter. The guidewire advanced without resistance or difficulty. The cordis catheter was then exchanged over the wire to the Madi catheter. The catheter was smoothly advanced over the wire. The guidewire was removed without difficulty, and the catheter ports were aspirated, flushed with saline, and capped without complication. Xray was performed and catheter position was adequate and was satisfactory on Xray. The catheter was secured with multiple 3-0 nylon sutures at the desired depth, and a dressing applied. The patient tolerated the procedure well and taken to recovery in fair condition. PLAN: Patient may use the catheter ROD PEREYRA MD October 10, 2018 20:51
[2018-10-10] MEDS: ATORVASTATIN 40 MG TAB PO SCH (21:00)
[2018-10-10] MEDS ORDERED: FUROSEMIDE 40 MG INJ ONE (22:54)
[2018-10-10] MEDS ORDERED: FUROSEMIDE 40 MG INJ IV ONE (23:00)
[2018-10-10] MEDS ORDERED: ALTEPLASE (CATHFLO) 2 MG INJ CATHETER ONE (23:30)
--- NOTE | 2018-10-10 23:41 | QN ---
Documentation Comment I was called regarding our patient not being able to be dialyzed via new Madi catheter placement (via the Left IJ). Our Multidisciplinary team has tried access from Right IJ, Right and left femoral vein access, and unable to obtain adequate dialysis access. We do not have a hybrid/Angio room available off hours for an advanced/last resort catheter placements. I have no other options that I could provide our patient. Given his complexity and concerning status, recommend the patient to be transferred to a tertiary center for further intervention of an access. This was discussed with our Hospitalist service and multidisciplinary team VANIA PEREYRA MD October 10, 2018 23:41
--- NOTE | 2018-10-10 23:51 | QN ---
Documentation Comment Patient is status post CABG. Patient was undergoing dialysis however on the heart monitor he started developing arrhythmias. Dialysis was stopped. Patient is in need of emergent dialysis and access. He has a right femoral Madi catheter that is clotted despite use of alteplase. Patient also had left IJ Madi catheter placed which also became clotted. Patient has difficult vascular access given his multiple comorbidities. I did speak with the vascular surgeon who recommended the patient be transferred to a higher level of care preferably at a tertiary center given his very difficult access. He is concerned that the further that this gets delayed that the patient may be at risk for further respiratory distress requiring intubation. Family is also very concerned and they are also requesting that patient be transferred to tertiary care center if possible. Case management has been notified and initiating transfer. MARVIN ROTH October 10, 2018 23:51
[2018-10-11] VITALS (44 sets, daily range): BP systolic 90–152; BP diastolic 32–116; PULSE 67–106; RESP 18–24
[2018-10-11] MEDS ORDERED: FUROSEMIDE 40 MG INJ IV ONE (02:00)
[2018-10-11] MEDS: ACCU-CHEK XX SCH ×5 (02:57→21:00)
[2018-10-11] MEDS ORDERED: INSULIN ASPART [NOVOLOG] 3 ML PEN SC ONE ×2 (03:00→05:30)
[2018-10-11] MEDS ORDERED: ACCU-CHEK XX ONE ×2 (05:00→07:40)
[2018-10-11] MEDS: FUROSEMIDE 40 MG TAB PO SCH ×2 (06:00→18:13)
[2018-10-11] MEDS ORDERED: LIDOCAINE 1% (MDV) 20 ML INJ ONE (06:38)
--- NOTE | 2018-10-11 06:50 | PN ---
Date/Time of Note Date/Time of Note DATE: 10/11/18 TIME: 06:49 Assessment/Plan Lines/Catheters IV Catheter Type (from Nrs): Randy Pierre in Place (from Nrs): Yes Assessment/Plan Assessment/Plan left femoral randy placed. dialysis now. respiratory status improved from last night. WBC 15K. remove left IJ and right femoral quintons. Exam/Review of Systems Vital Signs Vitals Vital Signs Date Temp Pulse Resp B/P (MAP) Pulse Ox O2 O2 Flow FiO2 Time Delivery Rate 10/11/18 93 19 120/77 100 Nasal 05:00 (91) Cannula 10/11/18 4.0 04:42 10/11/18 99.5 04:00 10/10/18 27 03:46 Intake and Output 10/10/18 10/10/18 10/11/18 1515:00 23:00 07:00 IntakeIntake Total 0 ml 0 ml OutputOutput Total 155 ml 465 ml BalanceBalance -155 ml -465 ml Results Result Diagram: 10/11/18 0457 10/11/18 0456 LESLIE WESTON MD October 11, 2018 06:50
[2018-10-11] MEDS: INSULIN ASPART [NOVOLOG] 3 ML PEN SC SCH ×8 (07:35→21:00)
[2018-10-11] MEDS: FAMOTIDINE 20 MG INJ IV SCH (08:46)
[2018-10-11] MEDS: ASPIRIN 325 MG TAB PO SCH ×2 (09:00→14:07)
[2018-10-11] MEDS: INSULIN GLARGINE [LANTus] (100 UNITS/ML) SYG SC SCH (09:03)
[2018-10-11] MEDS: HEPARIN 5,000 UNIT/1 ML VIAL SC SCH (09:04)
[2018-10-11] MEDS: BALSAM PERU/CASTOR OIL 60 GM TUBE TOP SCH (09:05)
[2018-10-11] MEDS ORDERED: ALTEPLASE (CATHFLO) 2 MG INJ CATHETER ONE (10:30)
[2018-10-11] MEDS: HEPARIN 1000 UNITS/ML 10 ML INJ HE SCH (10:55)
[2018-10-11] MEDS ORDERED: ALBUMIN HUMAN 25% 100 ML IV ONE (11:00)
--- NOTE | 2018-10-11 14:16 | PN ---
Date/Time of Note Date/Time of Note DATE: 10/11/18 TIME: 14:14 Assessment/Plan VTE Prophylaxis Risk score (from Nsg)>0 risk: 10 Pharmacological prophylaxis: NA/contraindicated Pharm contraindication: renal impairment Lines/Catheters IV Catheter Type (from Nrsg): Madi Assessment/Plan Hospital Course 67 yo with numerous comorbidities including dyslipidemia, IDDM, ESRD on HD and severe PVD who is also anticoagulated on Eliquis/Plavix,here with worsening malaise, found to have severe anemia/positive stool OB... also had NSTEMI #NSTEMI/Multivessel coronary artery disease - s/p LHC 09/30 - s/p CABG 10/07 - Cautiously resume beta blockers. - Anticoag, antiplatelet per CT surgery. - Continue statin. #Severe acute symptomatic blood loss anemia -Improved with multiple transfusion. -Continue iron #Upper GI bleed -resolved -s/p EGD showed anastomotic ulcer (hx billroth II) -On PPI/Carafate #Mobitz type I heart block - Now post CABG will resume beta blockers - Maintain on telemetry #ESRD, hemodialysis MWF -Management per nephrology -also getting diuretics as well #DMII -Sugars are improving. 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 -Wound care #Obesity with BMI 36.3 -Weight reduction advised. #Anemia of ESRD -on Epogen with hemodialysis. DVT prophylaxis: SCDs PUD prophylaxis: Protonix Result Diagram: 10/11/18 0457 10/11/18 0456 Results 24hrs Laboratory Tests Test 10/10/18 17:06 10/10/18 21:43 10/10/18 22:55 10/11/18 02:50 Bedside Glucose 204 200 220 Blood Gas Blood arterial Specimen Source Arterial Blood 10/10/2018 11:28: Date Drawn 43 PM Arterial Blood pH 7.418 (Temp corrected) Arterial Blood 26.8 L pCO2 (Temp correct) Arterial Blood 143.0 H pO2 (Temp corrected) Arterial Blood 16.9 L HCO3 Arterial Blood -6.4 L Base Excess Arterial Blood 98.7 H Oxygen Saturation Eamon Test ACCEPTAB Arterial Blood Right Radial Gas Puncture Site Arterial 0.3 Blood Carboxyhemo globin Arterial Blood 0.3 Methemoglobin Blood Gas A-a O2 543.2 H Differential Oxyhemoglobin 98.1 Percent Blood Gas 37.0 Temperature Blood Gas Actual 24 Respiration Rate Blood Gas MASK - NRB Modality FiO2 100.0 Blood Gas Notified Whom Blood Gas 10/10/2018 11:34: Notified Time 58 PM Test 10/11/18 04:56 10/11/18 04:57 10/11/18 05:22 10/11/18 07:39 Prothrombin Time 15.2 H Prothrombin Time 1.2 Ratio INR International 1.19 Normalized Ratio Activated 41.8 H Partial Thrombopl ast Time Sodium Level 136 Potassium Level 4.5 Chloride Level 102 Carbon Dioxide 19 L Level Anion Gap 15 H Blood Urea 76 H Nitrogen Creatinine 9.79 H Est Glomerular 5 L Filtrat Rate mL/min Glucose Level 196 Calcium Level 8.9 Phosphorus Level 6.2 H Magnesium Level 2.7 H Total Bilirubin 0.3 Direct Bilirubin 0.00 Indirect 0.3 Bilirubin Aspartate Amino 17 Transf (AST/SGOT) Alanine < 6 L Aminotransferase (ALT/SGPT) Alkaline 61 Phosphatase Total Protein 6.4 Albumin 3.0 L Globulin 3.40 H Albumin/Globulin 0.88 Ratio White Blood Count 15.5 H Red Blood Count 2.78 L Hemoglobin 8.2 L Hematocrit 25.1 L Mean Corpuscular 90.3 Volume Mean Corpuscular 29.5 Hemoglobin Mean Corpuscular 32.7 Hemoglobin Concen t Red Cell 15.9 H Distribution Width Platelet Count 230 Mean Platelet 11.6 H Volume Immature 0.900 H Granulocytes % Neutrophils % 83.6 H Lymphocytes % 7.1 L Monocytes % 6.9 Eosinophils % 1.0 Basophils % 0.5 Nucleated Red 0.0 Blood Cells % Immature 0.140 H Granulocytes # Neutrophils # 12.9 H Lymphocytes # 1.1 Monocytes # 1.1 H Eosinophils # 0.2 Basophils # 0.1 Nucleated Red 0.0 Blood Cells # Bedside Glucose 187 208 Test 10/11/18 08:48 10/11/18 09:46 10/11/18 13:45 Bedside Glucose 215 201 143 Exam/Review of Systems Exam Vitals Vital Signs Date Temp Pulse Resp B/P (MAP) Pulse Ox O2 O2 Flow FiO2 Time Delivery Rate 10/11/18 95 21 101/32 97 Nasal 2.0 14:00 (55) Cannula 10/11/18 97.4 12:00 10/10/18 27 03:46 Intake and Output 10/10/18 10/10/18 10/11/18 1515:00 23:00 07:00 IntakeIntake Total 0 ml 0 ml 0 ml OutputOutput Total 155 ml 465 ml 385 ml BalanceBalance -155 ml -465 ml -385 ml Results Results 24hrs Laboratory Tests Test 10/10/18 17:06 10/10/18 21:43 10/10/18 22:55 10/11/18 02:50 Bedside Glucose 204 200 220 Blood Gas Blood arterial Specimen Source Arterial Blood 10/10/2018 11:28: Date Drawn 43 PM Arterial Blood pH 7.418 (Temp corrected) Arterial Blood 26.8 L pCO2 (Temp correct) Arterial Blood 143.0 H pO2 (Temp corrected) Arterial Blood 16.9 L HCO3 Arterial Blood -6.4 L Base Excess Arterial Blood 98.7 H Oxygen Saturation Eamon Test ACCEPTAB Arterial Blood Right Radial Gas Puncture Site Arterial 0.3 Blood Carboxyhemo globin Arterial Blood 0.3 Methemoglobin Blood Gas A-a O2 543.2 H Differential Oxyhemoglobin 98.1 Percent Blood Gas 37.0 Temperature Blood Gas Actual 24 Respiration Rate Blood Gas MASK - NRB Modality FiO2 100.0 Blood Gas Notified Whom Blood Gas 10/10/2018 11:34: Notified Time 58 PM Test 10/11/18 04:56 10/11/18 04:57 10/11/18 05:22 10/11/18 07:39 Prothrombin Time 15.2 H Prothrombin Time 1.2 Ratio INR International 1.19 Normalized Ratio Activated 41.8 H Partial Thrombopl ast Time Sodium Level 136 Potassium Level 4.5 Chloride Level 102 Carbon Dioxide 19 L Level Anion Gap 15 H Blood Urea 76 H Nitrogen Creatinine 9.79 H Est Glomerular 5 L Filtrat Rate mL/min Glucose Level 196 Calcium Level 8.9 Phosphorus Level 6.2 H Magnesium Level 2.7 H Total Bilirubin 0.3 Direct Bilirubin 0.00 Indirect 0.3 Bilirubin Aspartate Amino 17 Transf (AST/SGOT) Alanine < 6 L Aminotransferase (ALT/SGPT) Alkaline 61 Phosphatase Total Protein 6.4 Albumin 3.0 L Globulin 3.40 H Albumin/Globulin 0.88 Ratio White Blood Count 15.5 H Red Blood Count 2.78 L Hemoglobin 8.2 L Hematocrit 25.1 L Mean Corpuscular 90.3 Volume Mean Corpuscular 29.5 Hemoglobin Mean Corpuscular 32.7 Hemoglobin Concen t Red Cell 15.9 H Distribution Width Platelet Count 230 Mean Platelet 11.6 H Volume Immature 0.900 H Granulocytes % Neutrophils % 83.6 H Lymphocytes % 7.1 L Monocytes % 6.9 Eosinophils % 1.0 Basophils % 0.5 Nucleated Red 0.0 Blood Cells % Immature 0.140 H Granulocytes # Neutrophils # 12.9 H Lymphocytes # 1.1 Monocytes # 1.1 H Eosinophils # 0.2 Basophils # 0.1 Nucleated Red 0.0 Blood Cells # Bedside Glucose 187 208 Test 10/11/18 08:48 10/11/18 09:46 10/11/18 13:45 Bedside Glucose 215 201 143 Medications Medication Current Medications Miscellaneous Information (* Miscellaneous Pharmacy Order) Treatment of Hypoglycemia: 1.BG 51... Per protocol XX ; Start 10/07/18 at 21:00 Hydromorphone HCl (Dilaudid) 0.2 mg Q15M PRN IV PAIN LEVEL 1-5; Start 10/07/18 at 21:00 Hydromorphone HCl (Dilaudid) 0.4 mg Q15M PRN IV PAIN LEVEL 6-10 Last administered on 10/08/18at 03:09; Admin Dose 0.4 MG; Start 10/07/18 at 21:00 Oxycodone/ Acetaminophen (Percocet (5/ 325)) 1 tab Q3H PRN PO PAIN LEVEL 1-5; Start 10/07/18 at 21:00 Oxycodone/ Acetaminophen (Percocet (5/ 325)) 2 tab Q3H PRN PO PAIN LEVEL 6-10; Start 10/07/18 at 21:00 Ondansetron HCl (Zofran Inj) 4 mg Q6H PRN IV NAUSEA AND/OR VOMITING Last administered on 10/09/18at 13:52; Admin Dose 4 MG; Start 10/07/18 at 21:00 Famotidine (Pepcid Iv) 20 mg DAILY IV Last administered on 10/11/18at 08:46; Admin Dose 20 MG; Start 10/08/18 at 09:00 Famotidine (Pepcid) 20 mg BID PO Last administered on 10/08/18at 20:29; Admin Dose 20 MG; Start 10/08/18 at 21:00; Status Hold Acetaminophen (Tylenol Tab) 650 mg Q3H PRN PO ELEVATED TEMPERATURE; Start 10/07/18 at 21:00 Potassium Chloride 50 ml @ 50 mls/hr SEE DIRECTION PRN IVPB K+ LEVEL; Start 10/07/18 at 21:00 Magnesium Sulfate/ Dextrose 100 ml @ 100 mls/hr PRN PRN IVPB PENDING LAB VALUE; Start 10/07/18 at 21:00 Diphenhydramine HCl (Benadryl) 25 mg PACU ORDER PRN IV .PRURITUS; Start 10/07/18 at 21:30 Nitroglycerin/ Dextrose 250 ml @ 1.5 mls/hr PER PROTOCOL IV ; Start 10/07/18 at 22:00 Dopamine HCl/ Dextrose 250 ml @ 7.695 mls/ hr PER PROTOCOL IV ; Start 10/07/18 at 22:00 Norepinephrine 250 ml @ 1.875 mls/ hr TITRATE IV Last administered on 10/08/18at 03:04; Admin Dose 3.75 MLS/HR; Start 10/08/18 at 03:00 Miscellaneous Information 1 ea NOTE XX ; Start 10/08/18 at 11:00 Albumin Human 250 ml @ 500 mls/hr PRN PRN IV CVP< 8, OR SBP<90; Start 10/08/18 at 13:30 Aspirin (Aspirin) 325 mg DAILY PO Last administered on 10/11/18at 14:07; Admin Dose 325 MG; Start 10/08/18 at 16:30 Atorvastatin Calcium (Lipitor) 40 mg HS PO Last administered on 10/09/18at 20:52; Admin Dose 40 MG; Start 10/08/18 at 21:00 Furosemide (Lasix) 40 mg BID DIURETICS PO Last administered on 10/10/18at 17:34; Admin Dose 40 MG; Start 10/08/18 at 18:00 Diagnostic Test (Pha) (Accu-Chek) 1 ea 02 XX Last administered on 10/11/18at 02:57; Admin Dose 1 EA; Start 10/10/18 at 02:00 Insulin Aspart (Novolog Insulin Pen) NOVOLOG *MODERATE* ALGORITHM WITH MEALS BEDTIME SC Last administered on 10/11/18at 13:48; Admin Dose 2 UNIT; Start 10/09/18 at 11:30 Miscellaneous Information 1 ea NOTE XX ; Start 10/09/18 at 12:00 Glucose (Glutose) 15 gm Q15M PRN PO DECREASED GLUCOSE; Start 10/09/18 at 12:00 Glucose (Glutose) 22.5 gm Q15M PRN PO DECREASED GLUCOSE; Start 10/09/18 at 12:00 Dextrose (D50w Syringe) 25 ml Q15M PRN IV DECREASED GLUCOSE; Start 10/09/18 at 12:00 Dextrose (D50w Syringe) 50 ml Q15M PRN IV DECREASED GLUCOSE; Start 10/09/18 at 12:00 Glucagon (Glucagen) 1 mg Q15M PRN IM DECREASED GLUCOSE; Start 10/09/18 at 12:00 Glucose (Glutose) 15 gm Q15M PRN BUCCAL DECREASED GLUCOSE; Start 10/09/18 at 12:00 Diagnostic Test (Pha) (Accu-Chek) 1 ea AC MEALS AND BEDTIME XX Last administered on 10/10/18at 21:50; Admin Dose 1 EA; Start 10/09/18 at 11:00 Insulin Glargine (Lantus) 35 units DAILY@0830 SC Last administered on 10/11/18at 09:03; Admin Dose 35 UNITS; Start 10/10/18 at 09:00 Insulin Aspart (Novolog Insulin Pen) 8 unit WITH MEALS SC Last administered on 10/11/18at 13:49; Admin Dose 8 UNIT; Start 10/10/18 at 11:30 Heparin Sodium (Porcine) (Heparin (1000 Units/ml)) 500 unit WITH DIALYSIS HE Last administered on 10/11/18at 10:55; Admin Dose 500 UNIT; Start 10/11/18 at 10:30 Apixaban (Eliquis) 5 mg BID PO ; Start 10/11/18 at 21:00; Status LORI OTERO October 11, 2018 14:16
--- NOTE | 2018-10-11 15:56 | CONS ---
Assessment/Plan Assessment/Plan Assessment/Plan (Daily) 1. acute Hyperkalemia due to GI bleeding- resolved 2.Acute fluid overload with Uremia BUN 111 on admission 3. acute GI bleeding causing acute blood loss anemia- S/p Status post EGD/colonoscopy 09/27/19 -Anastomosis ulcer -Normal colonoscopy 4. Severe Anemia with Hb 5.8 on admission s/p 5 U PRBC transfusion for GI bleeding during this admission 5. H/O HTN 6. H/O peripheral vascular disease 7. ESRD on HD -follow up at [facility] [place] for scheduled HD on MWF 8. acute NSTEMI s/p LHC on 09/30/18 that showed 3 V CAD- s/p CABG on 10/07/18 Plan: s/p CABG on 09/27/18- remained all three Chest tubes, A line removed s/p Extubation doing well did not had a enough HD last time due to access clotted, s/p Madi catheter placement which did not work well plan for permacath by Radiology HD plan for today Lasix 40mg pO BID - will give extra dose of lasix 20mg IV x [address] surgery, pulmonary following will follow up Patient seen in collaboration with Dr Joby Tobar Consultation Date/Type/Reason Admit Date/Time September 24, 2018 at 08:08 Initial Consult Date 09/24/18 Type of Consult NEPHROLOGY Reason for Consultation ESRD on HD Requesting Provider: LAVON SEE Date/Time of Note DATE: 10/11/18 TIME: 15:55 24 HR Interval Summary Free Text/Dictation - NAD - SP CABG done on 10/07/18 afebrile no new events reported last night dw staff Constitutional: requiring IVF, requiring O2 Exam/Review of Systems Exam Vitals Vital Signs Date Temp Pulse Resp B/P (MAP) Pulse Ox O2 O2 Flow FiO2 Time Delivery Rate 10/11/18 82 21 90/54 (66) 98 Nasal 2.0 15:00 Cannula 10/11/18 97.4 12:00 10/10/18 27 03:46 Intake and Output 10/10/18 10/10/18 10/11/18 1515:00 23:00 07:00 IntakeIntake Total 0 ml 0 ml 0 ml OutputOutput Total 155 ml 465 ml 385 ml BalanceBalance -155 ml -465 ml -385 ml Constitutional: well developed Psych: nl mood/affect Eyes: nl lids, nl sclera ENMT: nl external ears & nose Neck: non-tender Respiratory: clear to auscultation Cardiovascular: nl pulses, other (s1s2) Gastrointestinal: soft, non-tender Musculoskeletal: muscle weakness Extremities: normal pulses Lymph: nontender Results Result Diagram: 10/11/18 0457 10/11/18 0456 Results 24hrs Laboratory Tests Test 10/10/18 17:06 10/10/18 21:43 10/10/18 22:55 10/11/18 02:50 Bedside Glucose 204 200 220 Blood Gas Blood arterial Specimen Source Arterial Blood 10/10/2018 11:28: Date Drawn 43 PM Arterial Blood pH 7.418 (Temp corrected) Arterial Blood 26.8 L pCO2 (Temp correct) Arterial Blood 143.0 H pO2 (Temp corrected) Arterial Blood 16.9 L HCO3 Arterial Blood -6.4 L Base Excess Arterial Blood 98.7 H Oxygen Saturation Eamon Test ACCEPTAB Arterial Blood Right Radial Gas Puncture Site Arterial 0.3 Blood Carboxyhemo globin Arterial Blood 0.3 Methemoglobin Blood Gas A-a O2 543.2 H Differential Oxyhemoglobin 98.1 Percent Blood Gas 37.0 Temperature Blood Gas Actual 24 Respiration Rate Blood Gas MASK - NRB Modality FiO2 100.0 Blood Gas Notified Whom Blood Gas 10/10/2018 11:34: Notified Time 58 PM Test 10/11/18 04:56 10/11/18 04:57 10/11/18 05:22 10/11/18 07:39 Prothrombin Time 15.2 H Prothrombin Time 1.2 Ratio INR International 1.19 Normalized Ratio Activated 41.8 H Partial Thrombopl ast Time Sodium Level 136 Potassium Level 4.5 Chloride Level 102 Carbon Dioxide 19 L Level Anion Gap 15 H Blood Urea 76 H Nitrogen Creatinine 9.79 H Est Glomerular 5 L Filtrat Rate mL/min Glucose Level 196 Calcium Level 8.9 Phosphorus Level 6.2 H Magnesium Level 2.7 H Total Bilirubin 0.3 Direct Bilirubin 0.00 Indirect 0.3 Bilirubin Aspartate Amino 17 Transf (AST/SGOT) Alanine < 6 L Aminotransferase (ALT/SGPT) Alkaline 61 Phosphatase Total Protein 6.4 Albumin 3.0 L Globulin 3.40 H Albumin/Globulin 0.88 Ratio White Blood Count 15.5 H Red Blood Count 2.78 L Hemoglobin 8.2 L Hematocrit 25.1 L Mean Corpuscular 90.3 Volume Mean Corpuscular 29.5 Hemoglobin Mean Corpuscular 32.7 Hemoglobin Concen t Red Cell 15.9 H Distribution Width Platelet Count 230 Mean Platelet 11.6 H Volume Immature 0.900 H Granulocytes % Neutrophils % 83.6 H Lymphocytes % 7.1 L Monocytes % 6.9 Eosinophils % 1.0 Basophils % 0.5 Nucleated Red 0.0 Blood Cells % Immature 0.140 H Granulocytes # Neutrophils # 12.9 H Lymphocytes # 1.1 Monocytes # 1.1 H Eosinophils # 0.2 Basophils # 0.1 Nucleated Red 0.0 Blood Cells # Bedside Glucose 187 208 Test 10/11/18 08:48 10/11/18 09:46 10/11/18 13:45 Bedside Glucose 215 201 143 Medications Medication Current Medications Miscellaneous Information (* Miscellaneous Pharmacy Order) Treatment of Hypog lycemia: 1.BG 51... Per protocol XX ; Start 10/07/18 at 21:00 Hydromorphone HCl (Dilaudid) 0.2 mg Q15M PRN IV PAIN LEVEL 1-5; Start 10/07/18 at 21:00 Hydromorphone HCl (Dilaudid) 0.4 mg Q15M PRN IV PAIN LEVEL 6-10 Last administered on 10/08/18at 03:09; Admin Dose 0.4 MG; Start 10/07/18 at 21:00 Oxycodone/ Acetaminophen (Percocet (5/ 325)) 1 tab Q3H PRN PO PAIN LEVEL 1-5; Start 10/07/18 at 21:00 Oxycodone/ Acetaminophen (Percocet (5/ 325)) 2 tab Q3H PRN PO PAIN LEVEL 6-10; Start 10/07/18 at 21:00 Ondansetron HCl (Zofran Inj) 4 mg Q6H PRN IV NAUSEA AND/OR VOMITING Last administered on 10/09/18at 13:52; Admin Dose 4 MG; Start 10/07/18 at 21:00 Famotidine (Pepcid Iv) 20 mg DAILY IV Last administered on 10/11/18at 08:46; Admin Dose 20 MG; Start 10/08/18 at 09:00 Famotidine (Pepcid) 20 mg BID PO Last administered on 10/08/18at 20:29; Admin Dose 20 MG; Start 10/08/18 at 21:00; Status Hold Acetaminophen (Tylenol Tab) 650 mg Q3H PRN PO ELEVATED TEMPERATURE; Start 10/07/18 at 21:00 Potassium Chloride 50 ml @ 50 mls/hr SEE DIRECTION PRN IVPB K+ LEVEL; Start 10/07/18 at 21:00 Magnesium Sulfate/ Dextrose 100 ml @ 100 mls/hr PRN PRN IVPB PENDING LAB VALUE; Start 10/07/18 at 21:00 Diphenhydramine HCl (Benadryl) 25 mg PACU ORDER PRN IV .PRURITUS; Start 10/07/18 at 21:30 Nitroglycerin/ Dextrose 250 ml @ 1.5 mls/hr PER PROTOCOL IV ; Start 10/07/18 at 22:00 Dopamine HCl/ Dextrose 250 ml @ 7.695 mls/ hr PER PROTOCOL IV ; Start 10/07/18 at 22:00 Norepinephrine 250 ml @ 1.875 mls/ hr TITRATE IV Last administered on 10/08/18at 03:04; Admin Dose 3.75 MLS/HR; Start 10/08/18 at 03:00 Miscellaneous Information 1 ea NOTE XX ; Start 10/08/18 at 11:00 Albumin Human 250 ml @ 500 mls/hr PRN PRN IV CVP< 8, OR SBP<90; Start 10/08/18 at 13:30 Aspirin (Aspirin) 325 mg DAILY PO Last administered on 10/11/18at 14:07; Admin Dose 325 MG; Start 10/08/18 at 16:30 Atorvastatin Calcium (Lipitor) 40 mg HS PO Last administered on 10/09/18at 20:52; Admin Dose 40 MG; Start 10/08/18 at 21:00 Furosemide (Lasix) 40 mg BID DIURETICS PO Last administered on 10/10/18at 17:34; Admin Dose 40 MG; Start 10/08/18 at 18:00 Diagnostic Test (Pha) (Accu-Chek) 1 ea 02 XX Last administered on 10/11/18at 02:57; Admin Dose 1 EA; Start 10/10/18 at 02:00 Insulin Aspart (Novolog Insulin Pen) NOVOLOG *MODERATE* ALGORITHM WITH MEALS BEDTIME SC Last administered on 10/11/18at 13:48; Admin Dose 2 UNIT; Start 10/09/18 at 11:30 Miscellaneous Information 1 ea NOTE XX ; Start 10/09/18 at 12:00 Glucose (Glutose) 15 gm Q15M PRN PO DECREASED GLUCOSE; Start 10/09/18 at 12:00 Glucose (Glutose) 22.5 gm Q15M PRN PO DECREASED GLUCOSE; Start 10/09/18 at 12:00 Dextrose (D50w Syringe) 25 ml Q15M PRN IV DECREASED GLUCOSE; Start 10/09/18 at 12:00 Dextrose (D50w Syringe) 50 ml Q15M PRN IV DECREASED GLUCOSE; Start 10/09/18 at 12:00 Glucagon (Glucagen) 1 mg Q15M PRN IM DECREASED GLUCOSE; Start 10/09/18 at 12:00 Glucose (Glutose) 15 gm Q15M PRN BUCCAL DECREASED GLUCOSE; Start 10/09/18 at 12:00 Diagnostic Test (Pha) (Accu-Chek) 1 ea AC MEALS AND BEDTIME XX Last administered on 10/10/18at 21:50; Admin Dose 1 EA; Start 10/09/18 at 11:00 Insulin Glargine (Lantus) 35 units DAILY@0830 SC Last administered on 10/11/18at 09:03; Admin Dose 35 UNITS; Start 10/10/18 at 09:00 Insulin Aspart (Novolog Insulin Pen) 8 unit WITH MEALS SC Last administered on 10/11/18at 13:49; Admin Dose 8 UNIT; Start 10/10/18 at 11:30 Heparin Sodium (Porcine) (Heparin (1000 Units/ml)) 500 unit WITH DIALYSIS HE Last administered on 10/11/18at 10:55; Admin Dose 500 UNIT; Start 10/11/18 at 10:30 Apixaban (Eliquis) 5 mg BID PO ; Start 10/11/18 at 21:00 CATARINA GONCALVES October 11, 2018 15:56
[2018-10-11] MEDS: ATORVASTATIN 40 MG TAB PO SCH (21:15)
[2018-10-11] MEDS: APIXABAN 5 MG TABLET PO SCH (21:15)
--- NOTE | 2018-10-11 21:34 | CONS ---
Assessment/Plan Assessment/Plan Hospital Course (Demo Recall) CAD s/p CABG: CABG x4 10/07/18, ÁLVAREZ to LAD, SVG to ramus, SVG to OM1 sequenced to OM2. Doing well. Extubated 10/08, off pressors NSTEMI: Trop peak 1.1 and trended down. S/p cath 09/30/18 with diffuse multivessel CAD. CABG as below Upper GI bleed: due to anastomotic ulcer seen on EGD 09/26. No bleeding since. Black stools but on iron and stool occult negative. Hgb stable. Anemia: due to above. s/p 5 units PRBCs and 2 units intraop. Wenckebach: Mobitz 1. Not on BB. No pauses or high grade block. 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 Now stopped DM ESRD on HD MWF: both fistula and right femoral HD cath nonfunctional. Plan for tunneled cath HTN H/o Billroth -continue to hold metoprolol due to Wenckebach and intermittent bradycardia, and now borderline blood pressures; will initiate low dose metoprolol as blood pressures can tolerate and if no further Wenckebach/bradycardia -continue aspirin, resumed on Eliquis -lipitor 40mg -lasix 40mg PO BID -HD per nephrology Consultation Date/Type/Reason Admit Date/Time September 24, 2018 at 08:08 Initial Consult Date 10/01/18 Type of Consult Cardiology Date/Time of Note DATE: 10/11/18 TIME: 21:32 24 HR Interval Summary Free Text/Dictation Left femoral Madi catheter placed, started on hemodialysis. Detailed Summary Additional Comments 14 point review of systems without changes. Exam/Review of Systems Vital Signs Vitals Vital Signs Date Temp Pulse Resp B/P (MAP) Pulse Ox O2 O2 Flow FiO2 Time Delivery Rate 10/11/18 Nasal 2.0 20:00 Cannula 10/11/18 97.9 69 19 92/53 (66) 98 20:00 10/10/18 27 03:46 Intake and Output 10/10/18 10/10/18 10/11/18 1515:00 23:00 07:00 IntakeIntake Total 0 ml 0 ml 0 ml OutputOutput Total 155 ml 465 ml 385 ml BalanceBalance -155 ml -465 ml -385 ml Exam Exam Constitutional: alert, oriented Psych: no complaints, nl mood/affect Head: normocephalic, atraumatic Neck: supple; No jvd Respiratory: clear to auscultation, diminished breath sounds; No crackles/rales Cardiovascular: regular rate and rhythm; No edema Gastrointestinal: soft, non-tender; No distended 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: nl mental status, nl speech Labs Result Diagram: 10/11/18 0457 10/11/18 0456 Results 24hrs Laboratory Tests Test 10/10/18 21:43 10/10/18 22:55 10/11/18 02:50 10/11/18 04:56 Bedside Glucose 200 220 Blood Gas Blood arterial Specimen Source Arterial Blood 10/10/2018 11:28: Date Drawn 43 PM Arterial Blood pH 7.418 (Temp corrected) Arterial Blood 26.8 L pCO2 (Temp correct) Arterial Blood 143.0 H pO2 (Temp corrected) Arterial Blood 16.9 L HCO3 Arterial Blood -6.4 L Base Excess Arterial Blood 98.7 H Oxygen Saturation Eamon Test ACCEPTAB Arterial Blood Right Radial Gas Puncture Site Arterial 0.3 Blood Carboxyhemo globin Arterial Blood 0.3 Methemoglobin Blood Gas A-a O2 543.2 H Differential Oxyhemoglobin 98.1 Percent Blood Gas 37.0 Temperature Blood Gas Actual 24 Respiration Rate Blood Gas MASK - NRB Modality FiO2 100.0 Blood Gas Notified Whom Blood Gas 10/10/2018 11:34: Notified Time 58 PM Prothrombin Time 15.2 H Prothrombin Time 1.2 Ratio INR International 1.19 Normalized Ratio Activated 41.8 H Partial Thrombopl ast Time Sodium Level 136 Potassium Level 4.5 Chloride Level 102 Carbon Dioxide 19 L Level Anion Gap 15 H Blood Urea 76 H Nitrogen Creatinine 9.79 H Est Glomerular 5 L Filtrat Rate mL/min Glucose Level 196 Calcium Level 8.9 Phosphorus Level 6.2 H Magnesium Level 2.7 H Total Bilirubin 0.3 Direct Bilirubin 0.00 Indirect 0.3 Bilirubin Aspartate Amino 17 Transf (AST/SGOT) Alanine < 6 L Aminotransferase (ALT/SGPT) Alkaline 61 Phosphatase Total Protein 6.4 Albumin 3.0 L Globulin 3.40 H Albumin/Globulin 0.88 Ratio Test 10/11/18 04:57 10/11/18 05:22 10/11/18 07:39 10/11/18 08:48 White Blood Count 15.5 H Red Blood Count 2.78 L Hemoglobin 8.2 L Hematocrit 25.1 L Mean Corpuscular 90.3 Volume Mean Corpuscular 29.5 Hemoglobin Mean Corpuscular 32.7 Hemoglobin Concen t Red Cell 15.9 H Distribution Width Platelet Count 230 Mean Platelet 11.6 H Volume Immature 0.900 H Granulocytes % Neutrophils % 83.6 H Lymphocytes % 7.1 L Monocytes % 6.9 Eosinophils % 1.0 Basophils % 0.5 Nucleated Red 0.0 Blood Cells % Immature 0.140 H Granulocytes # Neutrophils # 12.9 H Lymphocytes # 1.1 Monocytes # 1.1 H Eosinophils # 0.2 Basophils # 0.1 Nucleated Red 0.0 Blood Cells # Bedside Glucose 187 208 215 Test 10/11/18 09:46 10/11/18 13:45 10/11/18 18:02 10/11/18 21:12 Bedside Glucose 201 143 122 87 Medications Medications Current Medications Miscellaneous Information (* Miscellaneous Pharmacy Order) Treatment of Hypoglycemia: 1.BG 51... Per protocol XX ; Start 10/07/18 at 21:00 Hydromorphone HCl (Dilaudid) 0.2 mg Q15M PRN IV PAIN LEVEL 1-5; Start 10/07/18 at 21:00 Hydromorphone HCl (Dilaudid) 0.4 mg Q15M PRN IV PAIN LEVEL 6-10 Last administered on 10/08/18at 03:09; Admin Dose 0.4 MG; Start 10/07/18 at 21:00 Oxycodone/ Acetaminophen (Percocet (5/ 325)) 1 tab Q3H PRN PO PAIN LEVEL 1-5; Start 10/07/18 at 21:00 Oxycodone/ Acetaminophen (Percocet (5/ 325)) 2 tab Q3H PRN PO PAIN LEVEL 6-10; Start 10/07/18 at 21:00 Ondansetron HCl (Zofran Inj) 4 mg Q6H PRN IV NAUSEA AND/OR VOMITING Last administered on 10/09/18at 13:52; Admin Dose 4 MG; Start 10/07/18 at 21:00 Famotidine (Pepcid Iv) 20 mg DAILY IV Last administered on 10/11/18at 08:46; Admin Dose 20 MG; Start 10/08/18 at 09:00 Famotidine (Pepcid) 20 mg BID PO Last administered on 10/08/18at 20:29; Admin Dose 20 MG; Start 10/08/18 at 21:00; Status Hold Acetaminophen (Tylenol Tab) 650 mg Q3H PRN PO ELEVATED TEMPERATURE; Start 10/07/18 at 21:00 Potassium Chloride 50 ml @ 50 mls/hr SEE DIRECTION PRN IVPB K+ LEVEL; Start 10/07/18 at 21:00 Magnesium Sulfate/ Dextrose 100 ml @ 100 mls/hr PRN PRN IVPB PENDING LAB VALUE; Start 10/07/18 at 21:00 Diphenhydramine HCl (Benadryl) 25 mg PACU ORDER PRN IV .PRURITUS; Start 10/07/18 at 21:30 Nitroglycerin/ Dextrose 250 ml @ 1.5 mls/hr PER PROTOCOL IV ; Start 10/07/18 at 22:00 Dopamine HCl/ Dextrose 250 ml @ 7.695 mls/ hr PER PROTOCOL IV ; Start 10/07/18 at 22:00 Norepinephrine 250 ml @ 1.875 mls/ hr TITRATE IV Last administered on 10/08/18at 03:04; Admin Dose 3.75 MLS/HR; Start 10/08/18 at 03:00 Miscellaneous Information 1 ea NOTE XX ; Start 10/08/18 at 11:00 Albumin Human 250 ml @ 500 mls/hr PRN PRN IV CVP< 8, OR SBP<90; Start 10/08/18 at 13:30 Aspirin (Aspirin) 325 mg DAILY PO Last administered on 10/11/18at 14:07; Admin Dose 325 MG; Start 10/08/18 at 16:30 Atorvastatin Calcium (Lipitor) 40 mg HS PO Last administered on 10/11/18at 21:15; Admin Dose 40 MG; Start 10/08/18 at 21:00 Furosemide (Lasix) 40 mg BID DIURETICS PO Last administered on 10/11/18at 18:13; Admin Dose 40 MG; Start 10/08/18 at 18:00 Diagnostic Test (Pha) (Accu-Chek) 1 ea 02 XX Last administered on 10/11/18at 02 :57; Admin Dose 1 EA; Start 10/10/18 at 02:00 Insulin Aspart (Novolog Insulin Pen) NOVOLOG *MODERATE* ALGORITHM WITH MEALS BEDTIME SC Last administered on 10/11/18at 13:48; Admin Dose 2 UNIT; Start 10/09/18 at 11:30 Miscellaneous Information 1 ea NOTE XX ; Start 10/09/18 at 12:00 Glucose (Glutose) 15 gm Q15M PRN PO DECREASED GLUCOSE; Start 10/09/18 at 12:00 Glucose (Glutose) 22.5 gm Q15M PRN PO DECREASED GLUCOSE; Start 10/09/18 at 12:00 Dextrose (D50w Syringe) 25 ml Q15M PRN IV DECREASED GLUCOSE; Start 10/09/18 at 12:00 Dextrose (D50w Syringe) 50 ml Q15M PRN IV DECREASED GLUCOSE; Start 10/09/18 at 12:00 Glucagon (Glucagen) 1 mg Q15M PRN IM DECREASED GLUCOSE; Start 10/09/18 at 12:00 Glucose (Glutose) 15 gm Q15M PRN BUCCAL DECREASED GLUCOSE; Start 10/09/18 at 12:00 Diagnostic Test (Pha) (Accu-Chek) 1 ea AC MEALS AND BEDTIME XX Last administered on 10/10/18at 21:50; Admin Dose 1 EA; Start 10/09/18 at 11:00 Insulin Glargine (Lantus) 35 units DAILY@0830 SC Last administered on 10/11/18 09:03; Admin Dose 35 UNITS; Start 10/10/18 at 09:00 Insulin Aspart (Novolog Insulin Pen) 8 unit WITH MEALS SC Last administered on 10/11/18at 18:18; Admin Dose 8 UNIT; Start 10/10/18 at 11:30 Heparin Sodium (Porcine) (Heparin (1000 Units/ml)) 500 unit WITH DIALYSIS HE Last administered on 10/11/18at 10:55; Admin Dose 500 UNIT; Start 10/11/18 at 10:30 Apixaban (Eliquis) 5 mg BID PO Last administered on 10/11/18 21:15; Admin Dose 5 MG; Start 10/11/18 at 21:00 QUIANA SHAH MD October 11, 2018 21:34
[2018-10-12] VITALS (16 sets, daily range): BP systolic 95–141; BP diastolic 52–76; PULSE 60–94; RESP 18–23
[2018-10-12] MEDS: ACCU-CHEK XX SCH ×5 (02:00→20:15)
[2018-10-12] MEDS: FUROSEMIDE 40 MG TAB PO SCH ×2 (05:57→17:01)
[2018-10-12] MEDS: INSULIN ASPART [NOVOLOG] 3 ML PEN SC SCH ×7 (07:49→20:14)
[2018-10-12] MEDS: ASPIRIN 325 MG TAB PO SCH (08:04)
[2018-10-12] MEDS: APIXABAN 5 MG TABLET PO SCH ×2 (08:04→20:13)
[2018-10-12] MEDS: BALSAM PERU/CASTOR OIL 60 GM TUBE TOP SCH (08:05)
[2018-10-12] MEDS: INSULIN GLARGINE [LANTus] (100 UNITS/ML) SYG SC SCH (08:13)
--- NOTE | 2018-10-12 10:57 | CONS ---
Assessment/Plan Assessment/Plan Assessment/Plan (Daily) 1. acute Hyperkalemia due to GI bleeding- resolved 2.Acute fluid overload with Uremia BUN 111 on admission 3. acute GI bleeding causing acute blood loss anemia- S/p Status post EGD/colonoscopy 09/27/19 -Anastomosis ulcer -Normal colonoscopy 4. Severe Anemia with Hb 5.8 on admission s/p 5 U PRBC transfusion for GI bleeding during this admission 5. H/O HTN 6. H/O peripherla vascular disease 7. ESRD on HD -follow up at [facility] [place] scheduled HD on [facility] 8. acute NSTEMI s/p LHC on 09/30/18 that showed 3 V CAD- s/p CABG on 10/07/18 Plan: s/p CABG on 09/27/18- remained all three Chest tubes, A line removed, s/p Extubation doing well, today AM pt is more sleepy , did not had a enough HD last time due to access clotted, s/p Madi catheter placement which did not work well, plan for permacath by Radiology Lasix 40mg pO BID - will give extra dose of lasix 20mg IV x [address] surgery, pulmonary following will follow up Patient seen in collaboration with Dr Joby Tobar. staff Consultation Date/Type/Reason Admit Date/Time September 24, 2018 at 08:08 Initial Consult Date 09/24/18 Type of Consult NEPHRO Reason for Consultation ESRD on HD Date/Time of Note DATE: 10/12/18 TIME: 10:56 24 HR Interval Summary Free Text/Dictation Transferred from ICU to Tele Constitutional: requiring O2 Detailed Summary Eyes: no complaints ENT: no complaints Respiratory: no complaints Cardiovascular: no complaints Gastrointestinal: no complaints Genitourinary: no complaints Musculoskeletal: no complaints Exam/Review of Systems Exam Vitals Vital Signs Date Temp Pulse Resp B/P (MAP) Pulse Ox O2 O2 Flow FiO2 Time Delivery Rate 10/12/18 Nasal 2.0 08:30 Cannula 10/12/18 83 08:01 10/12/18 98.3 20 122/60 91 07:19 (80) 10/10/18 27 03:46 Intake and Output 10/11/18 10/11/18 10/12/18 1414:59 22:59 06:59 IntakeIntake Total 0 ml 600 ml 340 ml OutputOutput Total 2885 ml 50 ml 150 ml BalanceBalance -2885 ml 550 ml 190 ml Constitutional: alert, well developed Psych: nl mood/affect Head: atraumatic Eyes: EOMI Neck: non-tender Respiratory: clear to auscultation Cardiovascular: nl pulses, other (S1S2) Gastrointestinal: soft Musculoskeletal: muscle weakness Extremities: normal pulses Lymph: nontender Results Result Diagram: 10/12/18 0516 10/12/18 0516 Results 24hrs Laboratory Tests Test 10/11/18 13:45 10/11/18 18:02 10/11/18 21:12 10/12/18 01:42 Bedside Glucose 143 122 87 77 Test 10/12/18 05:16 10/12/18 07:41 White Blood Count 12.4 H Red Blood Count 2.62 L Hemoglobin 7.6 L Hematocrit 23.5 L Mean Corpuscular 89.7 Volume Mean Corpuscular 29.0 Hemoglobin Mean Corpuscular 32.3 Hemoglobin Concent Red Cell 15.8 H Distribution Width Platelet Count 226 Mean Platelet Volume 11.9 H Immature 0.700 H Granulocytes % Neutrophils % 74.0 Lymphocytes % 13.0 L Monocytes % 9.2 Eosinophils % 2.3 Basophils % 0.8 Nucleated Red Blood 0.0 Cells % Immature 0.090 H Granulocytes # Neutrophils # 9.1 H Lymphocytes # 1.6 Monocytes # 1.1 H Eosinophils # 0.3 Basophils # 0.1 Nucleated Red Blood 0.0 Cells # Sodium Level 135 Potassium Level 4.1 Chloride Level 102 Carbon Dioxide Level 21 Anion Gap 12 Blood Urea Nitrogen 72 H Creatinine 8.85 H Est Glomerular 6 L Filtrat Rate mL/min Glucose Level 84 # Calcium Level 8.6 Bedside Glucose 94 Medications Medication Current Medications Miscellaneous Information (* Miscellaneous Pharmacy Order) Treatment of Hypoglycemia: 1.BG 51... Per protocol XX ; Start 10/07/18 at 21:00 Oxycodone/ Acetaminophen (Percocet (5/ 325)) 1 tab Q3H PRN PO PAIN LEVEL 1-5; Start 10/07/18 at 21:00 Oxycodone/ Acetaminophen (Percocet (5/ 325)) 2 tab Q3H PRN PO PAIN LEVEL 6-10; Start 10/07/18 at 21:00 Ondansetron HCl (Zofran Inj) 4 mg Q6H PRN IV NAUSEA AND/OR VOMITING Last administered on 10/09/18 13:52; Admin Dose 4 MG; Start 10/07/18 at 21:00 Famotidine (Pepcid) 20 mg BID PO Last administered on 10/08/18 20:29; Admin Dose 20 MG; Start 10/08/18 at 21:00; Status Hold Acetaminophen (Tylenol Tab) 650 mg Q3H PRN PO ELEVATED TEMPERATURE; Start 10/07/18 at 21:00 Diphenhydramine HCl (Benadryl) 25 mg PACU ORDER PRN IV .PRURITUS; Start 10/07/18 at 21:30 Aspirin (Aspirin) 325 mg DAILY PO Last administered on 10/12/18 08:04; Admin Dose 325 MG; Start 10/08/18 at 16:30 Atorvastatin Calcium (Lipitor) 40 mg HS PO Last administered on 10/11/18 21:15; Admin Dose 40 MG; Start 10/08/18 at 21:00 Furosemide (Lasix) 40 mg BID DIURETICS PO Last administered on 10/12/18 05:57; Admin Dose 40 MG; Start 10/08/18 at 18:00 Diagnostic Test (Pha) (Accu-Chek) 1 ea 02 XX Last administered on 10/11/18 02:57; Admin Dose 1 EA; Start 10/10/18 at 02:00 Insulin Aspart (Novolog Insulin Pen) NOVOLOG *MODERATE* ALGORITHM WITH MEALS BEDTIME SC Last administered on 10/11/18 13:48; Admin Dose 2 UNIT; Start 10/09 at 11:30 Glucose (Glutose) 15 gm Q15M PRN PO DECREASED GLUCOSE; Start 10/09/18 at 12:00 Glucose (Glutose) 22.5 gm Q15M PRN PO DECREASED GLUCOSE; Start 10/09/18 at 12:00 Dextrose (D50w Syringe) 25 ml Q15M PRN IV DECREASED GLUCOSE; Start 10/09/18 at 12:00 Dextrose (D50w Syringe) 50 ml Q15M PRN IV DECREASED GLUCOSE; Start 10/09/18 at 12:00 Glucagon (Glucagen) 1 mg Q15M PRN IM DECREASED GLUCOSE; Start 10/09/18 at 12:00 Glucose (Glutose) 15 gm Q15M PRN BUCCAL DECREASED GLUCOSE; Start 5/16/19 at 12:00 Diagnostic Test (Pha) (Accu-Chek) 1 ea AC MEALS AND BEDTIME XX Last administered on 10/10/18 21:50; Admin Dose 1 EA; Start 10/09/18 at 11:00 Insulin Glargine (Lantus) 35 units DAILY@0830 SC Last administered on 10/12/18 08:13; Admin Dose 35 UNITS; Start 10/10/18 at 09:00 Insulin Aspart (Novolog Insulin Pen) 8 unit WITH MEALS SC Last administered on 10/12/18 08:13; Admin Dose 8 UNIT; Start 10/10/18 at 11:30 Heparin Sodium (Porcine) (Heparin (1000 Units/ml)) 500 unit WITH DIALYSIS HE Last administered on 10/11/18at 10:55; Admin Dose 500 UNIT; Start 10/11/18 at 10:30 Apixaban (Eliquis) 5 mg BID PO Last administered on 10/12/18 08:04; Admin Dose 5 MG; Start 10/11/18 at 21:00 CATARINA GONCALVES October 12, 2018 10:57
--- NOTE | 2018-10-12 11:15 | RADRPT ---
Vent Rate: 92 bpm RR Interval: 652 msec SD Interval: 221 msec QRS Duration: 122 msec QT Interval: 384 msec QTC Interval: 476 msec P-R-T [place]: 39 - -105 - 55 degrees Sinus rhythm...normal P axis, V-rate 50- 99 Prolonged SD interval...SD >215, V-rate 91-120 Right bundle branch block...QRSd>120, terminal axis(90,270) ST elevation secondary to IVCD...Multiple VCG criteria Electronically Signed By: Darrell Hernandez
--- NOTE | 2018-10-12 11:56 | PN ---
Date/Time of Note Date/Time of Note DATE: 10/12/18 TIME: 11:55 Assessment/Plan VTE Prophylaxis Risk score (from Ns)>0 risk: 4 SCD applied (from Ns): Yes Pharmacological prophylaxis: NA/contraindicated Pharm contraindication: renal impairment Lines/Catheters IV Catheter Type [facility]from [facility]): Saline Lock Assessment/Plan Hospital Course 67 yo with numerous comorbidities including dyslipidemia, IDDM, ESRD on HD and severe PVD who is also anticoagulated on Eliquis/Plavix,here with worsening malaise, found to have severe anemia/positive stool OB... also had NSTEMI #NSTEMI/Multivessel coronary artery disease - s/p LHC 09/30 - s/p CABG 10/07 - Cautiously resume beta blockers. - Anticoag, antiplatelet per CT surgery. - Continue statin. #Severe acute symptomatic blood loss anemia -Improved with multiple transfusion. -Continue iron #Upper GI bleed -resolved -s/p EGD showed anastomotic ulcer (hx billroth II) -On PPI/Carafate #Mobitz type I heart block - Now post CABG will resume beta blockers - Maintain on telemetry #ESRD, hemodialysis MWF -Management per nephrology -also getting diuretics as well #DMII -Sugars are improving. 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 -Wound care #Obesity with BMI 36.3 -Weight reduction advised. #Anemia of ESRD -on Epogen with hemodialysis. DVT prophylaxis: SCDs PUD prophylaxis: Protonix DC planning: Patient with poor functional status, continue PT, mcfp if patient unable to ambulate Result Diagram: 10/12/1851510/12/18515 Results 24hrs Laboratory Tests Test 10/11/18 13:45 10/11/18 18:02 10/11/18 21:12 10/12/18 01:42 Bedside Glucose 143 122 87 77 Test 10/12/18 05:16 10/12/18 07:41 White Blood Count 12.4 H Red Blood Count 2.62 L Hemoglobin 7.6 L Hematocrit 23.5 L Mean Corpuscular 89.7 Volume Mean Corpuscular 29.0 Hemoglobin Mean Corpuscular 32.3 Hemoglobin Concent Red Cell 15.8 H Distribution Width Platelet Count 226 Mean Platelet Volume 11.9 H Immature 0.700 H Granulocytes % Neutrophils % 74.0 Lymphocytes % 13.0 L Monocytes % 9.2 Eosinophils % 2.3 Basophils % 0.8 Nucleated Red Blood 0.0 Cells % Immature 0.090 H Granulocytes # Neutrophils # 9.1 H Lymphocytes # 1.6 Monocytes # 1.1 H Eosinophils # 0.3 Basophils # 0.1 Nucleated Red Blood 0.0 Cells # Sodium Level 135 Potassium Level 4.1 Chloride Level 102 Carbon Dioxide Level 21 Anion Gap 12 Blood Urea Nitrogen 72 H Creatinine 8.85 H Est Glomerular 6 L Filtrat Rate mL/min Glucose Level 84 # Calcium Level 8.6 Bedside Glucose 94 Subjective 24 Hr Interval Summary Constitutional: no complaints Exam/Review of Systems Exam Vitals Vital Signs Date Temp Pulse Resp B/P (MAP) Pulse Ox O2 O2 Flow FiO2 Time Delivery Rate 10/12/18 98.3 62 20 141/65 94 11:44 (90) 10/12/18 Nasal 2.0 08:30 Cannula 10/10/18 27 03:46 Intake and Output 10/11/18 10/11/18 10/12/18 1515:00 23:00 07:00 IntakeIntake Total 240 ml 360 ml 340 ml OutputOutput Total 2860 ml 50 ml 140 ml BalanceBalance -2620 ml 310 ml 200 ml Constitutional: alert, oriented Respiratory: clear to auscultation Cardiovascular: regular rate and rhythm Gastrointestinal: soft; No distended Musculoskeletal: nl extremities to inspection Results Results 24hrs Laboratory Tests Test 10/11/18 13:45 10/11/18 18:02 10/11/18 21:12 10/12/18 01:42 Bedside Glucose 143 122 87 77 Test 10/12/18 05:16 10/12/18 07:41 White Blood Count 12.4 H Red Blood Count 2.62 L Hemoglobin 7.6 L Hematocrit 23.5 L Mean Corpuscular 89.7 Volume Mean Corpuscular 29.0 Hemoglobin Mean Corpuscular 32.3 Hemoglobin Concent Red Cell 15.8 H Distribution Width Platelet Count 226 Mean Platelet Volume 11.9 H Immature 0.700 H Granulocytes % Neutrophils % 74.0 Lymphocytes % 13.0 L Monocytes % 9.2 Eosinophils % 2.3 Basophils % 0.8 Nucleated Red Blood 0.0 Cells % Immature 0.090 H Granulocytes # Neutrophils # 9.1 H Lymphocytes # 1.6 Monocytes # 1.1 H Eosinophils # 0.3 Basophils # 0.1 Nucleated Red Blood 0.0 Cells # Sodium Level 135 Potassium Level 4.1 Chloride Level 102 Carbon Dioxide Level 21 Anion Gap 12 Blood Urea Nitrogen 72 H Creatinine 8.85 H Est Glomerular 6 L Filtrat Rate mL/min Glucose Level 84 # Calcium Level 8.6 Bedside Glucose 94 Medications Medication Current Medications Miscellaneous Information (* Miscellaneous Pharmacy Order) Treatment of Hypoglycemia: 1.BG 51... Per protocol XX ; Start 10/07/18 at 21:00 Oxycodone/ Acetaminophen (Percocet (5/ 325)) 1 tab Q3H PRN PO PAIN LEVEL 1-5; Start 10/07/18 at 21:00 Oxycodone/ Acetaminophen (Percocet (5/ 325)) 2 tab Q3H PRN PO PAIN LEVEL 6-10; Start 10/07/18 at 21:00 Ondansetron HCl (Zofran Inj) 4 mg Q6H PRN IV NAUSEA AND/OR VOMITING Last administered on 10/09/18at 13:52; Admin Dose 4 MG; Start 10/07/18 at 21:00 Famotidine (Pepcid) 20 mg BID PO Last administered on 10/08/18at 20:29; Admin Dose 20 MG; Start 10/08/18 at 21:00; Status Hold Acetaminophen (Tylenol Tab) 650 mg Q3H PRN PO ELEVATED TEMPERATURE; Start 10/07/18 at 21:00 Diphenhydramine HCl (Benadryl) 25 mg PACU ORDER PRN IV .PRURITUS; Start 10/07/18 at 21:30 Aspirin (Aspirin) 325 mg DAILY PO Last administered on 10/12/18at 08:04; Admin Dose 325 MG; Start 10/08/18 at 16:30 Atorvastatin Calcium (Lipitor) 40 mg HS PO Last administered on 10/11/18at 21:15; Admin Dose 40 MG; Start 10/08/18 at 21:00 Furosemide (Lasix) 40 mg BID DIURETICS PO Last administered on 10/12/18at 05:57; Admin Dose 40 MG; Start 10/08/18 at 18:00 Diagnostic Test (Pha) (Accu-Chek) 1 ea 02 XX Last administered on 10/11/18 02:57; Admin Dose 1 EA; Start 10/10/18 at 02:00 Insulin Aspart (Novolog Insulin Pen) NOVOLOG *MODERATE* ALGORITHM WITH MEALS BEDTIME SC Last administered on 10/11/18 13:48; Admin Dose 2 UNIT; Start 10/09/18 at 11:30 Glucose (Glutose) 15 gm Q15M PRN PO DECREASED GLUCOSE; Start 10/09/18 at 12:00 Glucose (Glutose) 22.5 gm Q15M PRN PO DECREASED GLUCOSE; Start 10/09/18 at 12:00 Dextrose (D50w Syringe) 25 ml Q15M PRN IV DECREASED GLUCOSE; Start 10/09/18 at 12:00 Dextrose (D50w Syringe) 50 ml Q15M PRN IV DECREASED GLUCOSE; Start 10/09/18 at 12:00 Glucagon (Glucagen) 1 mg Q15M PRN IM DECREASED GLUCOSE; Start 10/09/18 at 12:00 Glucose (Glutose) 15 gm Q15M PRN BUCCAL DECREASED GLUCOSE; Start 10/09/18 at 12:00 Diagnostic Test (Pha) (Accu-Chek) 1 ea AC MEALS AND BEDTIME XX Last administered on 10/10/18 21:50; Admin Dose 1 EA; Start 10/09/18 at 11:00 Insulin Glargine (Lantus) 35 units DAILY@0830 SC Last administered on 10/12/18 08:13; Admin Dose 35 UNITS; Start 10/10/18 at 09:00 Insulin Aspart (Novolog Insulin Pen) 8 unit WITH MEALS SC Last administered on 10/12/18 08:13; Admin Dose 8 UNIT; Start 10/10/18 at 11:30 Heparin Sodium (Porcine) (Heparin (1000 Units/ml)) 500 unit WITH DIALYSIS HE Last administered on 10/11/18 10:55; Admin Dose 500 UNIT; Start 10/11/18 at 10:30 Apixaban (Eliquis) 5 mg BID PO Last administered on 10/12/18 08:04; Admin Dose 5 MG; Start 10/11/18 at 21:00 LORI VINES October 12, 2018 11:56
--- NOTE | 2018-10-12 12:00 | CONS ---
Assessment/Plan Assessment/Plan Hospital Course (Demo Recall) CAD s/p CABG: CABG x4 10/07/18, ÁLVAREZ to LAD, SVG to ramus, SVG to OM1 sequenced to OM2. Doing well. Extubated 10/08, off pressors NSTEMI: Trop peak 1.1 and trended down. S/p cath 09/30/18 with diffuse multivessel CAD. CABG as below Upper GI bleed: due to anastomotic ulcer seen on EGD 09/26. No bleeding since. Black stools but on iron and stool occult negative. Hgb stable. Anemia: due to above. s/p 5 units PRBCs and 2 units intraop. Wenckebach: Mobitz 1. Not on BB. No pauses or high grade block. 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 Now stopped DM ESRD on HD MWF: both fistula and right femoral HD cath nonfunctional. Plan for tunneled cath HTN H/o Billroth -patient appears to continue to have Wenckebach on telemetry, will repeat EKG -continue to hold off on metoprolol -continue aspirin, resumed on Eliquis -lipitor 40mg -lasix 40mg PO BID -HD per nephrology Consultation Date/Type/Reason Admit Date/Time September 24, 2018 at 08:08 Initial Consult Date 10/01/18 Type of Consult Cardiology Date/Time of Note DATE: 10/12/18 TIME: 11:58 24 HR Interval Summary Free Text/Dictation Transferred out of ICU. Detailed Summary Additional Comments 14 point review of systems without changes. Exam/Review of Systems Vital Signs Vitals Vital Signs Date Temp Pulse Resp B/P (MAP) Pulse Ox O2 O2 Flow FiO2 Time Delivery Rate 10/12/18 98.3 62 20 141/65 94 11:44 (90) 10/12/18 Nasal 2.0 08:30 Cannula 10/10/18 27 03:46 Intake and Output 10/11/18 10/11/18 10/12/18 1414:59 22:59 06:59 IntakeIntake Total 0 ml 600 ml 340 ml OutputOutput Total 2885 ml 50 ml 150 ml BalanceBalance -2885 ml 550 ml 190 ml Exam Exam Constitutional: alert, oriented Psych: no complaints, nl mood/affect Head: normocephalic, atraumatic Neck: supple; No jvd Respiratory: clear to auscultation, diminished breath sounds; No crackles/rales Cardiovascular: regular rate and rhythm; No edema Gastrointestinal: soft, non-tender; No distended 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: nl mental status, nl speech Labs Result Diagram: 10/12/18 0516 10/12/18 0516 Results 24hrs Laboratory Tests Test 10/11/18 13:45 10/11/18 18:02 10/11/18 21:12 10/12/18 01:42 Bedside Glucose 143 122 87 77 Test 10/12/18 05:16 10/12/18 07:41 White Blood Count 12.4 H Red Blood Count 2.62 L Hemoglobin 7.6 L Hematocrit 23.5 L Mean Corpuscular 89.7 Volume Mean Corpuscular 29.0 Hemoglobin Mean Corpuscular 32.3 Hemoglobin Concent Red Cell 15.8 H Distribution Width Platelet Count 226 Mean Platelet Volume 11.9 H Immature 0.700 H Granulocytes % Neutrophils % 74.0 Lymphocytes % 13.0 L Monocytes % 9.2 Eosinophils % 2.3 Basophils % 0.8 Nucleated Red Blood 0.0 Cells % Immature 0.090 H Granulocytes # Neutrophils # 9.1 H Lymphocytes # 1.6 Monocytes # 1.1 H Eosinophils # 0.3 Basophils # 0.1 Nucleated Red Blood 0.0 Cells # Sodium Level 135 Potassium Level 4.1 Chloride Level 102 Carbon Dioxide Level 21 Anion Gap 12 Blood Urea Nitrogen 72 H Creatinine 8.85 H Est Glomerular 6 L Filtrat Rate mL/min Glucose Level 84 # Calcium Level 8.6 Bedside Glucose 94 Medications Medications Current Medications Miscellaneous Information (* Miscellaneous Pharmacy Order) Treatment of Hypoglycemia: 1.BG 51... Per protocol XX ; Start 10/07/18 at 21:00 Oxycodone/ Acetaminophen (Percocet (5/ 325)) 1 tab Q3H PRN PO PAIN LEVEL 1-5; Start 10/07/18 at 21:00 Oxycodone/ Acetaminophen (Percocet (5/ 325)) 2 tab Q3H PRN PO PAIN LEVEL 6-10; Start 10/07/18 at 21:00 Ondansetron HCl (Zofran Inj) 4 mg Q6H PRN IV NAUSEA AND/OR VOMITING Last administered on 10/09/18 13:52; Admin Dose 4 MG; Start 10/07/18 at 21:00 Famotidine (Pepcid) 20 mg BID PO Last administered on 10/08/18 20:29; Admin Dose 20 MG; Start 10/08/18 at 21:00; Status Hold Acetaminophen (Tylenol Tab) 650 mg Q3H PRN PO ELEVATED TEMPERATURE; Start 10/07/18 at 21:00 Diphenhydramine HCl (Benadryl) 25 mg PACU ORDER PRN IV .PRURITUS; Start 10/07/18 at 21:30 Aspirin (Aspirin) 325 mg DAILY PO Last administered on 10/12/18 08:04; Admin Dose 325 MG; Start 10/08/18 at 16:30 Atorvastatin Calcium (Lipitor) 40 mg HS PO Last administered on 10/11/18 21:15; Admin Dose 40 MG; Start 10/08/18 at 21:00 Furosemide (Lasix) 40 mg BID DIURETICS PO Last administered on 10/12/18 05:57; Admin Dose 40 MG; Start 10/08/18 at 18:00 Diagnostic Test (Pha) (Accu-Chek) 1 ea 02 XX Last administered on 10/11/18 02:57; Admin Dose 1 EA; Start 10/10/18 at 02:00 Insulin Aspart (Novolog Insulin Pen) NOVOLOG *MODERATE* ALGORITHM WITH MEALS BEDTIME SC Last administered on 10/11/18 13:48; Admin Dose 2 UNIT; Start 10/09/18 at 11:30 Glucose (Glutose) 15 gm Q15M PRN PO DECREASED GLUCOSE; Start 10/09/18 at 12:00 Glucose (Glutose) 22.5 gm Q15M PRN PO DECREASED GLUCOSE; Start 10/09/18 at 12:00 Dextrose (D50w Syringe) 25 ml Q15M PRN IV DECREASED GLUCOSE; Start 10/09/18 at 12:00 Dextrose (D50w Syringe) 50 ml Q15M PRN IV DECREASED GLUCOSE; Start 10/09/18 at 12:00 Glucagon (Glucagen) 1 mg Q15M PRN IM DECREASED GLUCOSE; Start 10/09/18 at 12:00 Glucose (Glutose) 15 gm Q15M PRN BUCCAL DECREASED GLUCOSE; Start 10/09/18 at 12:00 Diagnostic Test (Pha) (Accu-Chek) 1 ea AC MEALS AND BEDTIME XX Last administered on 10/10/18 21:50; Admin Dose 1 EA; Start 10/09/18 at 11:00 Insulin Glargine (Lantus) 35 units DAILY@0830 SC Last administered on 10/12/18 08:13; Admin Dose 35 UNITS; Start 10/10/18 at 09:00 Insulin Aspart (Novolog Insulin Pen) 8 unit WITH MEALS SC Last administered on 10/12/18 08:13; Admin Dose 8 UNIT; Start 10/10/18 at 11:30 Heparin Sodium (Porcine) (Heparin (1000 Units/ml)) 500 unit WITH DIALYSIS HE Last administered on 10/11/18at 10:55; Admin Dose 500 UNIT; Start 10/11/18 at 10:30 Apixaban (Eliquis) 5 mg BID PO Last administered on 10/12/18 08:04; Admin Dose 5 MG; Start 10/11/18 at 21:00 QUIANA SHAH MD October 12, 2018 12:00
--- NOTE | 2018-10-12 12:16 | PN ---
Date/Time of Note Date/Time of Note DATE: 10/12/18 TIME: 12:13 Assessment/Plan VTE Prophylaxis Risk score (from Ns)>0 risk: 4 SCD applied (from Ns): Yes Pharmacological prophylaxis: apixaban Lines/Catheters IV Catheter Type (from Nrsg): [place] [facility] line still needed: Yes Urinary Cath still in place: No Reason Cath still needed: other (indicate) (dialysis) Assessment/Plan Hospital Course Not well motivated. Needs to start ambulating. DC pacing wire. On dialysis through L femoral catheter. Afebrile. Result Diagram: 10/12/1851510/12/18515 Results 24hrs Laboratory Tests Test 10/11/18 13:45 10/11/18 18:02 10/11/18 21:12 10/12/18 01:42 Bedside Glucose 143 122 87 77 Test 10/12/18 05:16 10/12/18 07:41 10/12/18 12:02 White Blood Count 12.4 H Red Blood Count 2.62 L Hemoglobin 7.6 L Hematocrit 23.5 L Mean Corpuscular 89.7 Volume Mean Corpuscular 29.0 Hemoglobin Mean Corpuscular 32.3 Hemoglobin Concent Red Cell 15.8 H Distribution Width Platelet Count 226 Mean Platelet Volume 11.9 H Immature 0.700 H Granulocytes % Neutrophils % 74.0 Lymphocytes % 13.0 L Monocytes % 9.2 Eosinophils % 2.3 Basophils % 0.8 Nucleated Red Blood 0.0 Cells % Immature 0.090 H Granulocytes # Neutrophils # 9.1 H Lymphocytes # 1.6 Monocytes # 1.1 H Eosinophils # 0.3 Basophils # 0.1 Nucleated Red Blood 0.0 Cells # Sodium Level 135 Potassium Level 4.1 Chloride Level 102 Carbon Dioxide Level 21 Anion Gap 12 Blood Urea Nitrogen 72 H Creatinine 8.85 H Est Glomerular 6 L Filtrat Rate mL/min Glucose Level 84 # Calcium Level 8.6 Bedside Glucose 94 102 Exam/Review of Systems Exam Vitals Vital Signs Date Temp Pulse Resp B/P (MAP) Pulse Ox O2 O2 Flow FiO2 Time Delivery Rate 10/12/18 98.3 62 20 141/65 94 11:44 (90) 10/12/18 Nasal 2.0 08:30 Cannula 10/10/18 27 03:46 Intake and Output 10/11/18 10/11/18 10/12/18 1515:00 23:00 07:00 IntakeIntake Total 240 ml 360 ml 340 ml OutputOutput Total 2860 ml 50 ml 140 ml BalanceBalance -2620 ml 310 ml 200 ml Results Results 24hrs Laboratory Tests Test 10/11/18 13:45 10/11/18 18:02 10/11/18 21:12 10/12/18 01:42 Bedside Glucose 143 122 87 77 Test 10/12/18 05:16 10/12/18 07:41 10/12/18 12:02 White Blood Count 12.4 H Red Blood Count 2.62 L Hemoglobin 7.6 L Hematocrit 23.5 L Mean Corpuscular 89.7 Volume Mean Corpuscular 29.0 Hemoglobin Mean Corpuscular 32.3 Hemoglobin Concent Red Cell 15.8 H Distribution Width Platelet Count 226 Mean Platelet Volume 11.9 H Immature 0.700 H Granulocytes % Neutrophils % 74.0 Lymphocytes % 13.0 L Monocytes % 9.2 Eosinophils % 2.3 Basophils % 0.8 Nucleated Red Blood 0.0 Cells % Immature 0.090 H Granulocytes # Neutrophils # 9.1 H Lymphocytes # 1.6 Monocytes # 1.1 H Eosinophils # 0.3 Basophils # 0.1 Nucleated Red Blood 0.0 Cells # Sodium Level 135 Potassium Level 4.1 Chloride Level 102 Carbon Dioxide Level 21 Anion Gap 12 Blood Urea Nitrogen 72 H Creatinine 8.85 H Est Glomerular 6 L Filtrat Rate mL/min Glucose Level 84 # Calcium Level 8.6 Bedside Glucose 94 102 Medications Medication Current Medications Miscellaneous Information (* Miscellaneous Pharmacy Order) Treatment of Hypoglycemia: 1.BG 51... Per protocol XX ; Start 10/07/18 at 21:00 Oxycodone/ Acetaminophen (Percocet (5/ 325)) 1 tab Q3H PRN PO PAIN LEVEL 1-5; Start 10/07/18 at 21:00 Oxycodone/ Acetaminophen (Percocet (5/ 325)) 2 tab Q3H PRN PO PAIN LEVEL 6-10; Start 10/07/18 at 21:00 Ondansetron HCl (Zofran Inj) 4 mg Q6H PRN IV NAUSEA AND/OR VOMITING Last administered on 10/09/18at 13:52; Admin Dose 4 MG; Start 10/07/18 at 21:00 Famotidine (Pepcid) 20 mg BID PO Last administered on 10/08/18 20:29; Admin Dose 20 MG; Start 10/08/18 at 21:00; Status Hold Acetaminophen (Tylenol Tab) 650 mg Q3H PRN PO ELEVATED TEMPERATURE; Start 10/07/18 at 21:00 Diphenhydramine HCl (Benadryl) 25 mg PACU ORDER PRN IV .PRURITUS; Start 10/07/18 at 21:30 Aspirin (Aspirin) 325 mg DAILY PO Last administered on 10/12/18 08:04; Admin D ose 325 MG; Start 10/08/18 at 16:30 Atorvastatin Calcium (Lipitor) 40 mg HS PO Last administered on 10/11/18 21:15; Admin Dose 40 MG; Start 10/08/18 at 21:00 Furosemide (Lasix) 40 mg BID DIURETICS PO Last administered on 10/12/18 05:57; Admin Dose 40 MG; Start 10/08/18 at 18:00 Diagnostic Test (Pha) (Accu-Chek) 1 ea 02 XX Last administered on 10/11/18 02:57; Admin Dose 1 EA; Start 10/10/18 at 02:00 Insulin Aspart (Novolog Insulin Pen) NOVOLOG *MODERATE* ALGORITHM WITH MEALS BEDTIME SC Last administered on 10/11/18 13:48; Admin Dose 2 UNIT; Start 10/09/18 at 11:30 Glucose (Glutose) 15 gm Q15M PRN PO DECREASED GLUCOSE; Start 10/09/18 at 12:00 Glucose (Glutose) 22.5 gm Q15M PRN PO DECREASED GLUCOSE; Start 10/09/18 at 12:00 Dextrose (D50w Syringe) 25 ml Q15M PRN IV DECREASED GLUCOSE; Start 10/09/18 at 12:00 Dextrose (D50w Syringe) 50 ml Q15M PRN IV DECREASED GLUCOSE; Start 10/09/18 at 12:00 Glucagon (Glucagen) 1 mg Q15M PRN IM DECREASED GLUCOSE; Start 10/09/18 at 12:00 Glucose (Glutose) 15 gm Q15M PRN BUCCAL DECREASED GLUCOSE; Start 10/09/18 at 12:00 Diagnostic Test (Pha) (Accu-Chek) 1 ea AC MEALS AND BEDTIME XX Last administered on 10/10/18at 21:50; Admin Dose 1 EA; Start 10/09/18 at 11:00 Insulin Glargine (Lantus) 35 units DAILY@0830 SC Last administered on 10/12/18 08:13; Admin Dose 35 UNITS; Start 10/10/18 at 09:00 Insulin Aspart (Novolog Insulin Pen) 8 unit WITH MEALS SC Last administered on 10/12/18 08:13; Admin Dose 8 UNIT; Start 10/10/18 at 11:30 Heparin Sodium (Porcine) (Heparin (1000 Units/ml)) 500 unit WITH DIALYSIS HE Last administered on 10/11/18at 10:55; Admin Dose 500 UNIT; Start 10/11/18 at 10:30 Apixaban (Eliquis) 5 mg BID PO Last administered on 10/12/18 08:04; Admin Dose 5 MG; Start 10/11/18 at 21:00 ORLIN BERMEO MD October 12, 2018 12:16
[2018-10-12] MEDS: OXYCODONE/ACETAMINOPHEN (5/325) TAB PO PRN ×2 (16:54→20:14)
[2018-10-12] MEDS: ATORVASTATIN 40 MG TAB PO SCH (20:13)
[2018-10-13] VITALS (24 sets, daily range): BP systolic 84–148; BP diastolic 57–89; PULSE 67–110; RESP 16–20
[2018-10-13] MEDS: ACCU-CHEK XX SCH ×5 (02:00→20:19)
[2018-10-13] MEDS: OXYCODONE/ACETAMINOPHEN (5/325) TAB PO PRN (05:59)
[2018-10-13] MEDS: FUROSEMIDE 40 MG TAB PO SCH ×2 (05:59→17:25)
[2018-10-13] MEDS: INSULIN ASPART [NOVOLOG] 3 ML PEN SC SCH ×7 (07:46→20:18)
[2018-10-13] MEDS: INSULIN GLARGINE [LANTus] (100 UNITS/ML) SYG SC SCH (07:54)
[2018-10-13] MEDS: APIXABAN 5 MG TABLET PO SCH ×2 (08:18→20:19)
[2018-10-13] MEDS: BALSAM PERU/CASTOR OIL 60 GM TUBE TOP SCH (08:19)
[2018-10-13] MEDS: ASPIRIN 81 MG TAB PO SCH (08:25)
--- NOTE | 2018-10-13 08:33 | CONS ---
Assessment/Plan Assessment/Plan Hospital Course (Demo Recall) Afib: new onset, rates controlled. Now on Eliquis CAD s/p CABG: CABG x4 10/07/18, ÁLVAREZ to LAD, SVG to ramus, SVG to OM1 sequenced to OM2. Doing well. Extubated 10/08, off pressors NSTEMI: Trop peak 1.1 and trended down. S/p cath 09/30/18 with diffuse multivessel CAD. CABG as below Upper GI bleed: due to anastomotic ulcer seen on EGD 09/26. No bleeding since. Black stools but on iron and stool occult negative. Hgb relatively stable. Anemia: due to above. s/p 5 units PRBCs and 2 units intraop. Wenckebach: Wilitz 1. Not on BB. No pauses or high grade block. 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 Now stopped DM ESRD on HD MWF: both fistula and right femoral HD cath nonfunctional. Unable to place right IJ. Now s/p left femoral catheter HTN H/o Billroth -was started on Eliquis 5mg BID for HD cath clotting issues, but also in afib so appropriate. Will need to monitor hgb -decrease ASA to 81mg -continue to hold metoprolol as pt has Wenckebach and intermittent bradycardia -lipitor 40mg -lasix 40mg PO BID -HD per nephrology Consultation Date/Type/Reason Admit Date/Time September 24, 2018 at 08:08 Initial Consult Date 09/24/18 Type of Consult Cardiology Date/Time of Note DATE: 10/13/18 TIME: 08:31 24 HR Interval Summary Free Text/Dictation Events over weekend including HD access issues noted. Now in afib. No chest pain or complaints. Just overall weakness Exam/Review of Systems Vital Signs Vitals Vital Signs Date Temp Pulse Resp B/P (MAP) Pulse Ox O2 O2 Flow FiO2 Time Delivery Rate 10/13/18 Nasal 2.0 08:00 Cannula 10/13/18 99.5 107 16 146/67 96 07:19 (93) 10/10/18 27 03:46 Intake and Output 10/12/18 10/12/18 10/13/18 1515:00 23:00 07:00 IntakeIntake Total 600 ml 350 ml OutputOutput Total 100 ml 250 ml BalanceBalance 500 ml 100 ml Exam Constitutional: alert, oriented Psych: no complaints, nl mood/affect Head: normocephalic, atraumatic Neck: No jvd Respiratory: diminished breath sounds; No clear to auscultation Cardiovascular: systolic murmur (2/6SEM); No regular rate and rhythm (IRIR), No edema Gastrointestinal: soft, non-tender; No distended 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: nl mental status, nl speech Labs Result Diagram: 10/12/1851510/12/18515 Results 24hrs Laboratory Tests Test 10/12/18 12:02 10/12/18 16:59 10/12/18 20:11 10/13/18 07:46 Bedside Glucose 102 92 73 108 Medications Medications Current Medications Miscellaneous Information (* Miscellaneous Pharmacy Order) Treatment of Hypoglycemia: 1.BG 51... Per protocol XX ; Start 10/07/18 at 21:00 Oxycodone/ Acetaminophen (Percocet (5/ 325)) 1 tab Q3H PRN PO PAIN LEVEL 1-5 Last administered on 10/12/18at 16:54; Admin Dose 1 TAB; Start 10/07/18 at 21:00 Oxycodone/ Acetaminophen (Percocet (5/ 325)) 2 tab Q3H PRN PO PAIN LEVEL 6-10 Last administered on 10/13/18at 05:59; Admin Dose 2 TAB; Start 10/07/18 at 21:00 Ondansetron HCl (Zofran Inj) 4 mg Q6H PRN IV NAUSEA AND/OR VOMITING Last administered on 10/09/18at 13:52; Admin Dose 4 MG; Start 10/07/18 at 21:00 Famotidine (Pepcid) 20 mg BID PO Last administered on 10/08/18at 20:29; Admin Dose 20 MG; Start 10/08/18 at 21:00; Status Hold Acetaminophen (Tylenol Tab) 650 mg Q3H PRN PO ELEVATED TEMPERATURE; Start 10/07/18 at 21:00 Diphenhydramine HCl (Benadryl) 25 mg PACU ORDER PRN IV .PRURITUS; Start 10/07/18 at 21:30 Atorvastatin Calcium (Lipitor) 40 mg HS PO Last administered on 10/12/18 20:13; Admin Dose 40 MG; Start 10/08/18 at 21:00 Furosemide (Lasix) 40 mg BID DIURETICS PO Last administered on 10/13/18 05:59; Admin Dose 40 MG; Start 10/08/18 at 18:00 Diagnostic Test (Pha) (Accu-Chek) 1 ea 02 XX Last administered on 10/11/18 02:57; Admin Dose 1 EA; Start 10/10/18 at 02:00 Insulin Aspart (Novolog Insulin Pen) NOVOLOG *MODERATE* ALGORITHM WITH MEALS BEDTIME SC Last administered on 10/11/18 13:48; Admin Dose 2 UNIT; Start 10/09/18 at 11:30 Glucose (Glutose) 15 gm Q15M PRN PO DECREASED GLUCOSE; Start 10/09/18 at 12:00 Glucose (Glutose) 22.5 gm Q15M PRN PO DECREASED GLUCOSE; Start 10/09/18 at 12:00 Dextrose (D50w Syringe) 25 ml Q15M PRN IV DECREASED GLUCOSE; Start 10/09/18 at 12:00 Dextrose (D50w Syringe) 50 ml Q15M PRN IV DECREASED GLUCOSE; Start 10/09/18 at 12:00 Glucagon (Glucagen) 1 mg Q15M PRN IM DECREASED GLUCOSE; Start 10/09/18 at 12:00 Glucose (Glutose) 15 gm Q15M PRN BUCCAL DECREASED GLUCOSE; Start 10/09/18 at 12:00 Diagnostic Test (Pha) (Accu-Chek) 1 ea AC MEALS AND BEDTIME XX Last administered on 10/13/18 07:46; Admin Dose 1 EA; Start 10/09/18 at 11:00 Insulin Glargine (Lantus) 35 units DAILY@0830 SC Last administered on 10/13/18 07:54; Admin Dose 35 UNITS; Start 10/10/18 at 09:00 Insulin Aspart (Novolog Insulin Pen) 8 unit WITH MEALS SC Last administered on 10/13/18 07:54; Admin Dose 8 UNIT; Start 10/10/18 at 11:30 Heparin Sodium (Porcine) (Heparin (1000 Units/ml)) 500 unit WITH DIALYSIS HE Last administered on 10/11/18at 10:55; Admin Dose 500 UNIT; Start 10/11/18 at 10:30 Apixaban (Eliquis) 5 mg BID PO Last administered on 10/13/18at 08:18; Admin Dose 5 MG; Start 10/11/18 at 21:00 Aspirin (Aspirin) 81 mg DAILY PO Last administered on 10/13/18at 08:25; Admin Dose 81 MG; Start 10/13/18 at 09:00 LAVON SEE October 13, 2018 08:33
[2018-10-13] MEDS ORDERED: ALBUMIN HUMAN 25% 100 ML ONE (10:53)
--- NOTE | 2018-10-13 11:19 | PN ---
Date/Time of Note Date/Time of Note DATE: 10/13/18 TIME: 11:19 Assessment/Plan VTE Prophylaxis Risk score (from Ns)>0 risk: 4 [place] [facility] [place] Pharmacological prophylaxis: NA/contraindicated Pharm contraindication: other Lines/Catheters IV Catheter Type (from [facility]): Madi cath Urinary Cath still in place: No Assessment/Plan Hospital Course 67 yo with numerous comorbidities including dyslipidemia, IDDM, ESRD on HD and severe PVD who is also anticoagulated on Eliquis/Plavix,here with worsening malaise, found to have severe anemia/positive stool OB... also had NSTEMI #NSTEMI/Multivessel coronary artery disease - s/p LHC 09/30 - s/p CABG 10/07 - Cautiously resume beta blockers. - Anticoag, antiplatelet per CT surgery. - Continue statin. #Severe acute symptomatic blood loss anemia -Improved with multiple transfusion. -Continue iron #Upper GI bleed -resolved -s/p EGD showed anastomotic ulcer (hx billroth II) -On PPI/Carafate #Mobitz type I heart block - Now post CABG will resume beta blockers - Maintain on telemetry #ESRD, hemodialysis MWF -Management per nephrology -also getting diuretics as well #DMII -Sugars are improving. 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 -Wound care #Obesity with BMI 36.3 -Weight reduction advised. #Anemia of ESRD -on Epogen with hemodialysis. DVT prophylaxis: SCDs PUD prophylaxis: Protonix DC planning: Patient with poor functional status, continue PT, detention if patient unable to ambulate Result Diagram: 10/12/18 0516 10/12/18 0516 Results 24hrs Laboratory Tests Test 10/12/18 12:02 10/12/18 16:59 10/12/18 20:11 10/13/18 07:46 Bedside Glucose 102 92 73 108 Subjective 24 Hr Interval Summary Constitutional: no complaints Exam/Review of Systems Exam Vitals Vital Signs Date Temp Pulse Resp B/P (MAP) Pulse Ox O2 O2 Flow FiO2 Time Delivery Rate 10/13/18 89 08:01 10/13/18 Nasal 2.0 08:00 Cannula 10/13/18 99.5 16 146/67 96 07:19 (93) 10/10/18 27 03:46 Intake and Output 10/12/18 10/12/18 10/13/18 1515:00 23:00 07:00 IntakeIntake Total 600 ml 350 ml OutputOutput Total 100 ml 250 ml BalanceBalance 500 ml 100 ml Constitutional: alert, oriented Respiratory: clear to auscultation Cardiovascular: regular rate and rhythm Gastrointestinal: soft; No distended Musculoskeletal: nl extremities to inspection Results Results 24hrs Laboratory Tests Test 10/12/18 12:02 10/12/18 16:59 10/12/18 20:11 10/13/18 07:46 Bedside Glucose 102 92 73 108 Medications Medication Current Medications Miscellaneous Information (* Miscellaneous Pharmacy Order) Treatment of Hypoglycemia: 1.BG 51... Per protocol XX ; Start 10/07/18 at 21:00 Oxycodone/ Acetaminophen (Percocet (5/ 325)) 1 tab Q3H PRN PO PAIN LEVEL 1-5 Last administered on 10/12/18at 16:54; Admin Dose 1 TAB; Start 10/07/18 at 21:00 Oxycodone/ Acetaminophen (Percocet (5/ 325)) 2 tab Q3H PRN PO PAIN LEVEL 6-10 Last administered on 10/13/18at 05:59; Admin Dose 2 TAB; Start 10/07/18 at 21:00 Ondansetron HCl (Zofran Inj) 4 mg Q6H PRN IV NAUSEA AND/OR VOMITING Last administered on 10/09/18at 13:52; Admin Dose 4 MG; Start 10/07/18 at 21:00 Famotidine (Pepcid) 20 mg BID PO Last administered on 10/08/18at 20:29; Admin Dose 20 MG; Start 10/08/18 at 21:00; Status Hold Acetaminophen (Tylenol Tab) 650 mg Q3H PRN PO ELEVATED TEMPERATURE; Start 10/07/18 at 21:00 Diphenhydramine HCl (Benadryl) 25 mg PACU ORDER PRN IV .PRURITUS; Start 10/07/18 at 21:30 Atorvastatin Calcium (Lipitor) 40 mg HS PO Last administered on 10/12/18at 20: 13; Admin Dose 40 MG; Start 10/08/18 at 21:00 Furosemide (Lasix) 40 mg BID DIURETICS PO Last administered on 10/13/18 05:59; Admin Dose 40 MG; Start 10/08/18 at 18:00 Diagnostic Test (Pha) (Accu-Chek) 1 ea 02 XX Last administered on 10/11/18at 02:57; Admin Dose 1 EA; Start 10/10/18 at 02:00 Insulin Aspart (Novolog Insulin Pen) NOVOLOG *MODERATE* ALGORITHM WITH MEALS BEDTIME SC Last administered on 10/11/18 13:48; Admin Dose 2 UNIT; Start 10/09/18 at 11:30 Glucose (Glutose) 15 gm Q15M PRN PO DECREASED GLUCOSE; Start 10/09/18 at 12:00 Glucose (Glutose) 22.5 gm Q15M PRN PO DECREASED GLUCOSE; Start 10/09/18 at 12:00 Dextrose (D50w Syringe) 25 ml Q15M PRN IV DECREASED GLUCOSE; Start 10/09/18 at 12:00 Dextrose (D50w Syringe) 50 ml Q15M PRN IV DECREASED GLUCOSE; Start 10/09/18 at 12:00 Glucagon (Glucagen) 1 mg Q15M PRN IM DECREASED GLUCOSE; Start 10/09/18 at 12:00 Glucose (Glutose) 15 gm Q15M PRN BUCCAL DECREASED GLUCOSE; Start 10/09/18 at 12:00 Diagnostic Test (Pha) (Accu-Chek) 1 ea AC MEALS AND BEDTIME XX Last administered on 10/13/18at 07:46; Admin Dose 1 EA; Start 10/09/18 at 11:00 Insulin Glargine (Lantus) 35 units DAILY@0830 SC Last administered on 10/13/18 07:54; Admin Dose 35 UNITS; Start 10/10/18 at 09:00 Insulin Aspart (Novolog Insulin Pen) 8 unit WITH MEALS SC Last administered on 10/13/18 07:54; Admin Dose 8 UNIT; Start 10/10/18 at 11:30 Heparin Sodium (Porcine) (Heparin (1000 Units/ml)) 500 unit WITH DIALYSIS HE Last administered on 10/11/18at 10:55; Admin Dose 500 UNIT; Start 10/11/18 at 10:30 Apixaban (Eliquis) 5 mg BID PO Last administered on 10/13/18at 08:18; Admin Dose 5 MG; Start 10/11/18 at 21:00 Aspirin (Aspirin) 81 mg DAILY PO Last administered on 10/13/18at 08:25; Admin Dose 81 MG; Start 10/13/18 at 09:00 Albumin Human 100 ml @ 100 mls/hr DURING DIALYSIS PRN IV BLOOD PRESSURE SUPPORT; Start 10/13/18 at 11:30 LORI VINES October 13, 2018 11:19
[2018-10-13] MEDS: ALBUMIN HUMAN 25% 100 ML IV PRN (11:32)
--- NOTE | 2018-10-13 11:42 | CONS ---
Assessment/Plan Assessment/Plan Assessment/Plan (Daily) 1. acute Hyperkalemia due to GI bleeding- resolved 2.Acute fluid overload with Uremia BUN 111 on admission 3. acute GI bleeding causing acute blood loss anemia- S/p Status post EGD/colonoscopy 09/27/19 -Anastomosis ulcer -Normal colonoscopy 4. Severe Anemia with Hb 5.8 on admission s/p 5 U PRBC transfusion for GI bleeding during this admission 5. H/O HTN 6. H/O peripherla vascular disease 7. ESRD on HD -follow up at [facility] for scheduled HD on MWF 8. acute NSTEMI s/p LHC on 09/30/18 that showed 3 V CAD- s/p CABG on 10/07/18 Plan: s/p CABG on 10/07/18-s/p left groin Madi, - workign good today, s/p HD today 2.2 L removed, will request IR to attempt permacath on him tomorrow Lasix 40mg pO BID will follow up Consultation Date/Type/Reason Admit Date/Time September 24, 2018 at 08:08 Initial Consult Date 09/24/18 Type of Consult NEPHROLOGY Date/Time of Note DATE: 10/13/18 TIME: 11:42 24 HR Interval Summary Free Text/Dictation s/p HD today 2.1 L removed, BP stable, afebrile, Exam/Review of Systems Exam Vitals Vital Signs Date Temp Pulse Resp B/P (MAP) Pulse Ox O2 O2 Flow FiO2 Time Delivery Rate 10/13/18 97.6 74 16 113/64 94 11:23 (80) 10/13/18 Nasal 2.0 08:00 Cannula 10/10/18 27 03:46 Intake and Output 10/12/18 10/12/18 10/13/18 1515:00 23:00 07:00 IntakeIntake Total 600 ml 350 ml OutputOutput Total 100 ml 250 ml BalanceBalance 500 ml 100 ml Exam Constitutional: arousable, sleepy Neck: supple, no JVD, no LAD Respiratory: crackles/rales, diminished breath sounds Cardiovascular: regular rate and rhythm, nl pulses Gastrointestinal: soft, non-tender Musculoskeletal: swelling Extremities: normal pulses 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: awake, alert, non focal Results Result Diagram: 10/12/1816 10/12/18515 Results 24hrs Laboratory Tests Test 10/12/18 12:02 10/12/18 16:59 10/12/18 20:11 10/13/18 07:46 Bedside Glucose 102 92 73 108 Medications Medication Current Medications Miscellaneous Information (* Miscellaneous Pharmacy Order) Treatment of Hypoglycemia: 1.BG 51... Per protocol XX ; Start 10/07/18 at 21:00 Oxycodone/ Acetaminophen (Percocet (5/ 325)) 1 tab Q3H PRN PO PAIN LEVEL 1-5 Last administered on 10/12/18 16:54; Admin Dose 1 TAB; Start 10/07/18 at 21:00 Oxycodone/ Acetaminophen (Percocet (5/ 325)) 2 tab Q3H PRN PO PAIN LEVEL 6-10 Last administered on 10/13/18 05:59; Admin Dose 2 TAB; Start 10/07/18 at 21:00 Ondansetron HCl (Zofran Inj) 4 mg Q6H PRN IV NAUSEA AND/OR VOMITING Last administered on 10/09/18 13:52; Admin Dose 4 MG; Start 10/07/18 at 21:00 Famotidine (Pepcid) 20 mg BID PO Last administered on 10/08/18 20:29; Admin Dose 20 MG; Start 10/08/18 at 21:00; Status Hold Acetaminophen (Tylenol Tab) 650 mg Q3H PRN PO ELEVATED TEMPERATURE; Start 10/07/18 at 21:00 Diphenhydramine HCl (Benadryl) 25 mg PACU ORDER PRN IV .PRURITUS; Start 10/07/18 at 21:30 Atorvastatin Calcium (Lipitor) 40 mg HS PO Last administered on 10/12/18 20:13; Admin Dose 40 MG; Start 10/08/18 at 21:00 Furosemide (Lasix) 40 mg BID DIURETICS PO Last administered on 10/13/18 05:59; Admin Dose 40 MG; Start 10/08/18 at 18:00 Diagnostic Test (Pha) (Accu-Chek) 1 ea 02 XX Last administered on 10/11/18 02:57; Admin Dose 1 EA; Start 10/10/18 at 02:00 Insulin Aspart (Novolog Insulin Pen) NOVOLOG *MODERATE* ALGORITHM WITH MEALS BEDTIME SC Last administered on 5/18/19at 13:48; Admin Dose 2 UNIT; Start 10/09/18 at 11:30 Glucose (Glutose) 15 gm Q15M PRN PO DECREASED GLUCOSE; Start 10/09/18 at 12:00 Glucose (Glutose) 22.5 gm Q15M PRN PO DECREASED GLUCOSE; Start 10/09/18 at 12:00 Dextrose (D50w Syringe) 25 ml Q15M PRN IV DECREASED GLUCOSE; Start 10/09/18 at 12:00 Dextrose (D50w Syringe) 50 ml Q15M PRN IV DECREASED GLUCOSE; Start 10/09/18 at 12:00 Glucagon (Glucagen) 1 mg Q15M PRN IM DECREASED GLUCOSE; Start 10/09/18 at 12:00 Glucose (Glutose) 15 gm Q15M PRN BUCCAL DECREASED GLUCOSE; Start 10/09/18 at 12:00 Diagnostic Test (Pha) (Accu-Chek) 1 ea AC MEALS AND BEDTIME XX Last administered on 10/13/18 07:46; Admin Dose 1 EA; Start 10/09/18 at 11:00 Insulin Glargine (Lantus) 35 units DAILY@0830 SC Last administered on 10/13/18 07:54; Admin Dose 35 UNITS; Start 10/10/18 at 09:00 Insulin Aspart (Novolog Insulin Pen) 8 unit WITH MEALS SC Last administered on 10/13/18 07:54; Admin Dose 8 UNIT; Start 10/10/18 at 11:30 Heparin Sodium (Porcine) (Heparin (1000 Units/ml)) 500 unit WITH DIALYSIS HE Last administered on 10/11/18at 10:55; Admin Dose 500 UNIT; Start 10/11/18 at 10:30 Apixaban (Eliquis) 5 mg BID PO Last administered on 10/13/18 08:18; Admin Dose 5 MG; Start 10/11/18 at 21:00 Aspirin (Aspirin) 81 mg DAILY PO Last administered on 10/13/18 08:25; Admin Dose 81 MG; Start 10/13/18 at 09:00 Albumin Human 100 ml @ 100 mls/hr DURING DIALYSIS PRN IV BLOOD PRESSURE SUPPORT Last administered on 10/13/18at 11:32; Admin Dose 100 MLS/HR; Start 10/13/18 at 11:30 RAQUEL MCDOWELL MD October 13, 2018 11:42
[2018-10-13] MEDS ORDERED: HEPARIN 1000 UNITS/ML 10 ML INJ CATHETER ONE (12:00)
[2018-10-13] MEDS ORDERED: ALTEPLASE (CATHFLO) 2 MG INJ CATHETER ONE (12:00)
[2018-10-13] MEDS: HEPARIN 1000 UNITS/ML 10 ML INJ HE SCH (13:54)
[2018-10-13] MEDS: ATORVASTATIN 40 MG TAB PO SCH (20:19)
[2018-10-14] VITALS (11 sets, daily range): BP systolic 99–139; BP diastolic 56–65; PULSE 65–96; RESP 16–20
[2018-10-14] MEDS: ACCU-CHEK XX SCH ×5 (02:00→20:10)
[2018-10-14] MEDS: FUROSEMIDE 40 MG TAB PO SCH ×2 (05:54→17:44)
[2018-10-14] MEDS: INSULIN ASPART [NOVOLOG] 3 ML PEN SC SCH ×7 (08:00→20:02)
[2018-10-14] MEDS: APIXABAN 5 MG TABLET PO SCH ×2 (08:22→20:02)
[2018-10-14] MEDS: ASPIRIN 81 MG TAB PO SCH (08:23)
[2018-10-14] MEDS: BALSAM PERU/CASTOR OIL 60 GM TUBE TOP SCH (08:31)
[2018-10-14] MEDS: INSULIN GLARGINE [LANTus] (100 UNITS/ML) SYG SC SCH (08:45)
--- NOTE | 2018-10-14 14:05 | PN ---
Date/Time of Note Date/Time of Note DATE: 10/14/18 TIME: 14:03 Assessment/Plan VTE Prophylaxis Risk score (from Ns)>0 risk: 6 SCD applied (from [facility] [place]): Yes Pharmacological prophylaxis: NA/contraindicated Pharm contraindication: renal impairment Lines/Catheters IV [facility]atheter Type (from [facility] Madi cath Urinary Cath still in place: No Assessment/Plan Hospital Course 67 yo with numerous comorbidities including dyslipidemia, IDDM, ESRD on HD and severe PVD who is also anticoagulated on Eliquis/Plavix,here with worsening malaise, found to have severe anemia/positive stool OB... also had NSTEMI #NSTEMI/Multivessel coronary artery disease - s/p LHC 09/30 - s/p CABG 10/07 - Cautiously resume beta blockers. - Anticoag, antiplatelet per CT surgery. - Continue statin. #Severe acute symptomatic blood loss anemia -Improved with multiple transfusion. -Continue iron #Upper GI bleed -resolved -s/p EGD showed anastomotic ulcer (hx billroth II) -On PPI/Carafate #Mobitz type I heart block - Now post CABG will resume beta blockers - Maintain on telemetry #ESRD, hemodialysis MWF -Management per nephrology, patient will need a permacath -Continue diuretics #DMII -Sugars are improving. 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 -Wound care #Obesity with BMI 36.3 -Weight reduction advised. #Anemia of ESRD -on Epogen with hemodialysis #Debility secondary to comorbidities -Continue PT DVT prophylaxis: SCDs PUD prophylaxis: Protonix DC planning: Patient with poor functional status, continue PT, long term if patient unable to ambulate, family prefers to try PT in the hospital for another few days before deciding a long term Result Diagram: 10/12/18 0516 10/12/18 0516 Results 24hrs Laboratory Tests Test 10/13/18 17:23 10/13/18 20:01 10/14/18 08:09 10/14/18 11:10 Bedside Glucose 80 103 188 189 Subjective 24 Hr Interval Summary Constitutional: no complaints Exam/Review of Systems Exam Vitals Vital Signs Date Temp Pulse Resp B/P (MAP) Pulse Ox O2 O2 Flow FiO2 Time Delivery Rate 10/14/18 75 12:00 10/14/18 98.8 16 128/56 94 11:19 (80) 10/14/18 Nasal 2.0 07:47 Cannula 10/13/18 18:48 Intake and Output 10/13/18 10/13/18 10/14/18 1515:00 23:00 07:00 IntakeIntake Total 450 ml OutputOutput Total 2900 ml 500 ml BalanceBalance -2900 ml -50 ml Constitutional: alert, oriented Respiratory: clear to auscultation Cardiovascular: regular rate and rhythm Gastrointestinal: soft; No distended Musculoskeletal: nl extremities to inspection Results Results 24hrs Laboratory Tests Test 10/13/18 17:23 10/13/18 20:01 10/14/18 08:09 10/14/18 11:10 Bedside Glucose 80 103 188 189 Medications Medication Current Medications Miscellaneous Information (* Miscellaneous Pharmacy Order) Treatment of Hypoglycemia: 1.BG 51... Per protocol XX ; Start 10/07/18 at 21:00 Oxycodone/ Acetaminophen (Percocet (5/ 325)) 1 tab Q3H PRN PO PAIN LEVEL 1-5 Last administered on 10/12/18at 16:54; Admin Dose 1 TAB; Start 10/07/18 at 21:00 Oxycodone/ Acetaminophen (Percocet (5/ 325)) 2 tab Q3H PRN PO PAIN LEVEL 6-10 Last administered on 10/13/18at 05:59; Admin Dose 2 TAB; Start 10/07/18 at 21:00 Ondansetron HCl (Zofran Inj) 4 mg Q6H PRN IV NAUSEA AND/OR VOMITING Last administered on 10/09/18at 13:52; Admin Dose 4 MG; Start 10/07/18 at 21:00 Famotidine (Pepcid) 20 mg BID PO Last administered on 10/08/18at 20:29; Admin Dose 20 MG; Start 10/08/18 at 21:00; Status Hold Acetaminophen (Tylenol Tab) 650 mg Q3H PRN PO ELEVATED TEMPERATURE; Start 10/07/18 at 21:00 Diphenhydramine HCl (Benadryl) 25 mg PACU ORDER PRN IV .PRURITUS; Start 10/07/18 at 21:30 Atorvastatin Calcium (Lipitor) 40 mg HS PO Last administered on 10/13/18 20:19; Admin Dose 40 MG; Start 10/08/18 at 21:00 Furosemide (Lasix) 40 mg BID DIURETICS PO Last administered on 10/13/18 17:25; Admin Dose 40 MG; Start 10/08/18 at 18:00 Diagnostic Test (Pha) (Accu-Chek) 1 ea 02 XX Last administered on 10/11/18at 02:57; Admin Dose 1 EA; Start 10/10/18 at 02:00 Insulin Aspart (Novolog Insulin Pen) NOVOLOG *MODERATE* ALGORITHM WITH MEALS BEDTIME SC Last administered on 10/14/18 11:20; Admin Dose 4 UNIT; Start 10/09/18 at 11:30 Glucose (Glutose) 15 gm Q15M PRN PO DECREASED GLUCOSE; Start 10/09/18 at 12:00 Glucose (Glutose) 22.5 gm Q15M PRN PO DECREASED GLUCOSE; Start 10/09/18 at 12:00 Dextrose (D50w Syringe) 25 ml Q15M PRN IV DECREASED GLUCOSE; Start 10/09/18 at 12:00 Dextrose (D50w Syringe) 50 ml Q15M PRN IV DECREASED GLUCOSE; Start 10/09/18 at 12:00 Glucagon (Glucagen) 1 mg Q15M PRN IM DECREASED GLUCOSE; Start 10/09/18 at 12:00 Glucose (Glutose) 15 gm Q15M PRN BUCCAL DECREASED GLUCOSE; Start 10/09/18 at 12:00 Diagnostic Test (Pha) (Accu-Chek) 1 ea AC MEALS AND BEDTIME XX Last administered on 10/14/18at 11:10; Admin Dose 1 EA; Start 10/09/18 at 11:00 Insulin Glargine (Lantus) 35 units DAILY@0830 SC Last administered on 10/14/18 08:45; Admin Dose 35 UNITS; Start 10/10/18 at 09:00 Insulin Aspart (Novolog Insulin Pen) 8 unit WITH MEALS SC Last administered on 10/14/18 11:20; Admin Dose 8 UNIT; Start 10/10/18 at 11:30 Heparin Sodium (Porcine) (Heparin (1000 Units/ml)) 500 unit WITH DIALYSIS HE Last administered on 10/13/18 13:54; Admin Dose 500 UNIT; Start 10/11/18 at 10:30 Apixaban (Eliquis) 5 mg BID PO Last administered on 10/13/18 20:19; Admin Dose 5 MG; Start 10/11/18 at 21:00 Aspirin (Aspirin) 81 mg DAILY PO Last administered on 10/14/18 08:23; Admin Dose 81 MG; Start 10/13/18 at 09:00 Albumin Human 100 ml @ 100 mls/hr DURING DIALYSIS PRN IV BLOOD PRESSURE SUPPORT Last administered on 10/13/18at 11:32; Admin Dose 100 MLS/HR; Start 10/13/18 at 11:30 LORI VINES October 14, 2018 14:05
--- NOTE | 2018-10-14 15:58 | CONS ---
Assessment/Plan Assessment/Plan Hospital Course (Demo Recall) Afib: new onset, rates controlled. Now on Eliquis CAD s/p CABG: CABG x4 10/07/18, ÁLVAREZ to LAD, SVG to ramus, SVG to OM1 sequenced to OM2. Doing well. Extubated 10/08, off pressors NSTEMI: Trop peak 1.1 and trended down. S/p cath 09/30/18 with diffuse multivessel CAD. CABG as below Upper GI bleed: due to anastomotic ulcer seen on EGD 09/26. No bleeding since. Black stools but on iron and stool occult negative. Hgb relatively stable. Anemia: due to above. s/p 5 units PRBCs and 2 units intraop. Wenckebach: Kaylee 1. Not on BB. No pauses or high grade block. 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 Now stopped DM ESRD on HD MWF: both fistula and right femoral HD cath nonfunctional. Unable to place right IJ. Now s/p left femoral catheter HTN H/o Billroth -was started on Eliquis 5mg BID for HD cath clotting issues, but also in afib so appropriate. Will need to monitor hgb. Check labs in am -ASA 81mg -continue to hold metoprolol as pt has Wenckebach and intermittent bradycardia -lipitor 40mg -lasix 40mg PO BID -HD per nephrology Consultation Date/Type/Reason Admit Date/Time September 24, 2018 at 08:08 Initial Consult Date 09/24/18 Type of Consult Cardiology Date/Time of Note DATE: 10/14/18 TIME: 15:55 24 HR Interval Summary Free Text/Dictation No events. Per , plan is for fistula revision. Exam/Review of Systems Vital Signs Vitals Vital Signs Date Temp Pulse Resp B/P (MAP) Pulse Ox O2 O2 Flow FiO2 Time Delivery Rate 10/14/18 98.2 67 16 139/65 91 15:39 (89) 10/14/18 Nasal 2.0 07:47 Cannula 10/13/18 21 18:48 Intake and Output 10/13/18 10/13/18 10/14/18 1515:00 23:00 07:00 IntakeIntake Total 450 ml OutputOutput Total 2900 ml 500 ml BalanceBalance -2900 ml -50 ml Exam Constitutional: alert, oriented Psych: no complaints, nl mood/affect Neck: No jvd Respiratory: diminished breath sounds; No clear to auscultation Cardiovascular: regular rate and rhythm; No edema Gastrointestinal: soft, non-tender; No distended 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: nl mental status, nl speech Labs Result Diagram: 10/12/18 0516 10/12/18 0516 Results 24hrs Laboratory Tests Test 10/13/18 17:23 10/13/18 20:01 10/14/18 08:09 10/14/18 11:10 Bedside Glucose 80 103 188 189 Medications Medications Current Medications Miscellaneous Information (* Miscellaneous Pharmacy Order) Treatment of Hypoglycemia: 1.BG 51... Per protocol XX ; Start 10/07/18 at 21:00 Oxycodone/ Acetaminophen (Percocet (5/ 325)) 1 tab Q3H PRN PO PAIN LEVEL 1-5 Last administered on 10/12/18at 16:54; Admin Dose 1 TAB; Start 10/07/18 at 21:00 Oxycodone/ Acetaminophen (Percocet (5/ 325)) 2 tab Q3H PRN PO PAIN LEVEL 6-10 Last administered on 10/13/18at 05:59; Admin Dose 2 TAB; Start 10/07/18 at 21:00 Ondansetron HCl (Zofran Inj) 4 mg Q6H PRN IV NAUSEA AND/OR VOMITING Last administered on 10/09/18at 13:52; Admin Dose 4 MG; Start 10/07/18 at 21:00 Famotidine (Pepcid) 20 mg BID PO Last administered on 10/08/18at 20:29; Admin Dose 20 MG; Start 10/08/18 at 21:00; Status Hold Acetaminophen (Tylenol Tab) 650 mg Q3H PRN PO ELEVATED TEMPERATURE; Start 10/07/18 at 21:00 Diphenhydramine HCl (Benadryl) 25 mg PACU ORDER PRN IV .PRURITUS; Start 10/07/18 at 21:30 Atorvastatin Calcium (Lipitor) 40 mg HS PO Last administered on 10/13/18at 20:19; Admin Dose 40 MG; Start 10/08/18 at 21:00 Furosemide (Lasix) 40 mg BID DIURETICS PO Last administered on 10/13/18 17:25; Admin Dose 40 MG; Start 10/08/18 at 18:00 Diagnostic Test (Pha) (Accu-Chek) 1 ea 02 XX Last administered on 10/11/18 02 :57; Admin Dose 1 EA; Start 10/10/18 at 02:00 Insulin Aspart (Novolog Insulin Pen) NOVOLOG *MODERATE* ALGORITHM WITH MEALS BEDTIME SC Last administered on 10/14/18 11:20; Admin Dose 4 UNIT; Start 10/09/18 at 11:30 Glucose (Glutose) 15 gm Q15M PRN PO DECREASED GLUCOSE; Start 10/09/18 at 12:00 Glucose (Glutose) 22.5 gm Q15M PRN PO DECREASED GLUCOSE; Start 10/09/18 at 12:00 Dextrose (D50w Syringe) 25 ml Q15M PRN IV DECREASED GLUCOSE; Start 10/09/18 at 12:00 Dextrose (D50w Syringe) 50 ml Q15M PRN IV DECREASED GLUCOSE; Start 10/09/18 at 12:00 Glucagon (Glucagen) 1 mg Q15M PRN IM DECREASED GLUCOSE; Start 10/09/18 at 12:00 Glucose (Glutose) 15 gm Q15M PRN BUCCAL DECREASED GLUCOSE; Start 10/09/18 at 12:00 Diagnostic Test (Pha) (Accu-Chek) 1 ea AC MEALS AND BEDTIME XX Last administered on 10/14/18at 11:10; Admin Dose 1 EA; Start 10/09/18 at 11:00 Insulin Glargine (Lantus) 35 units DAILY@0830 SC Last administered on 10/14/18at 08:45; Admin Dose 35 UNITS; Start 10/10/18 at 09:00 Insulin Aspart (Novolog Insulin Pen) 8 unit WITH MEALS SC Last administered on 10/14/18 11:20; Admin Dose 8 UNIT; Start 10/10/18 at 11:30 Heparin Sodium (Porcine) (Heparin (1000 Units/ml)) 500 unit WITH DIALYSIS HE Last administered on 10/13/18 13:54; Admin Dose 500 UNIT; Start 10/11/18 at 10:30 Apixaban (Eliquis) 5 mg BID PO Last administered on 10/13/18 20:19; Admin Dose 5 MG; Start 10/11/18 at 21:00 Aspirin (Aspirin) 81 mg DAILY PO Last administered on 10/14/18at 08:23; Admin Dose 81 MG; Start 10/13/18 at 09:00 Albumin Human 100 ml @ 100 mls/hr DURING DIALYSIS PRN IV BLOOD PRESSURE SUPPORT Last administered on 10/13/18at 11:32; Admin Dose 100 MLS/HR; Start 10/13/18 at 11:30 LAVON SEE October 14, 2018 15:58
--- NOTE | 2018-10-14 16:17 | CONS ---
Assessment/Plan Assessment/Plan Assessment/Plan (Daily) 1. acute Hyperkalemia due to GI bleeding- resolved 2.Acute fluid overload with Uremia BUN 111 on admission 3. acute GI bleeding causing acute blood loss anemia- S/p Status post EGD/colonoscopy 09/27/19 -Anastomosis ulcer -Normal colonoscopy 4. Severe Anemia with Hb 5.8 on admission s/p 5 U PRBC transfusion for GI bleeding during this admission 5. H/O HTN 6. H/O peripherla vascular disease 7. ESRD on HD -follow up at [facility] for scheduled HD on MWF 8. acute NSTEMI s/p LHC on 09/30/18 that showed 3 V CAD- s/p CABG on 10/07/18 Plan: s/p CABG on 10/07/18-s/p left groin Randy, - workign good today, s/p HD yesterday 2.2 L removed, HD ordered for tomorrow pt extensive IVC thrombosis, IR said they can not do , D/w Dr. Velasco - plan is ot have Angiogram of Bilateral LE on 10/21/18 and subsequent Attempt to covert randy to permacath if possible d/w famliy about very poor vascular access Lasix 40mg pO BID will follow up Consultation Date/Type/Reason Admit Date/Time September 24, 2018 at 08:08 Initial Consult Date 09/24/18 Type of Consult NEPHROLOGY Date/Time of Note DATE: 10/14/18 TIME: 16:17 24 HR Interval Summary Free Text/Dictation stable, pt has left groin randy HD catheter , Plan for HD tomorrow Exam/Review of Systems Exam Vitals Vital Signs Date Temp Pulse Resp B/P (MAP) Pulse Ox O2 O2 Flow FiO2 Time Delivery Rate 10/14/18 98.2 67 16 139/65 91 15:39 (89) 10/14/18 Nasal 2.0 07:47 Cannula 10/13/18 18:48 Intake and Output 10/13/18 10/13/18 10/14/18 1515:00 23:00 07:00 IntakeIntake Total 450 ml OutputOutput Total 2900 ml 500 ml BalanceBalance -2900 ml -50 ml Results Result Diagram: 10/12/18 0516 10/12/18 0516 Results 24hrs Laboratory Tests Test 10/13/18 17:23 10/13/18 20:01 10/14/18 08:09 10/14/18 11:10 Bedside Glucose 80 103 188 189 Medications Medication Current Medications Miscellaneous Information (* Miscellaneous Pharmacy Order) Treatment of Hypoglycemia: 1.BG 51... Per protocol XX ; Start 10/07/18 at 21:00 Oxycodone/ Acetaminophen (Percocet (5/ 325)) 1 tab Q3H PRN PO PAIN LEVEL 1-5 Last administered on 10/12/18 16:54; Admin Dose 1 TAB; Start 10/07/18 at 21:00 Oxycodone/ Acetaminophen (Percocet (5/ 325)) 2 tab Q3H PRN PO PAIN LEVEL 6-10 Last administered on 10/13/18 05:59; Admin Dose 2 TAB; Start 10/07/18 at 21:00 Ondansetron HCl (Zofran Inj) 4 mg Q6H PRN IV NAUSEA AND/OR VOMITING Last administered on 10/09/18 13:52; Admin Dose 4 MG; Start 10/07/18 at 21:00 Famotidine (Pepcid) 20 mg BID PO Last administered on 10/08/18 20:29; Admin Dose 20 MG; Start 10/08/18 at 21:00; Status Hold Acetaminophen (Tylenol Tab) 650 mg Q3H PRN PO ELEVATED TEMPERATURE; Start 10/07/18 at 21:00 Diphenhydramine HCl (Benadryl) 25 mg PACU ORDER PRN IV .PRURITUS; Start 10/07/18 at 21:30 Atorvastatin Calcium (Lipitor) 40 mg HS PO Last administered on 10/13/18 20:19; Admin Dose 40 MG; Start 10/08/18 at 21:00 Furosemide (Lasix) 40 mg BID DIURETICS PO Last administered on 10/13/18 17:25; Admin Dose 40 MG; Start 10/08/18 at 18:00 Diagnostic Test (Pha) (Accu-Chek) 1 ea 02 XX Last administered on 10/11/18 02:57; Admin Dose 1 EA; Start 10/10/18 at 02:00 Insulin Aspart (Novolog Insulin Pen) NOVOLOG *MODERATE* ALGORITHM WITH MEALS BEDTIME SC Last administered on 10/14/18 11:20; Admin Dose 4 UNIT; Start 10/09/18 at 11:30 Glucose (Glutose) 15 gm Q15M PRN PO DECREASED GLUCOSE; Start 10/09/18 at 12:00 Glucose (Glutose) 22.5 gm Q15M PRN PO DECREASED GLUCOSE; Start 10/09/18 at 12:00 Dextrose (D50w Syringe) 25 ml Q15M PRN IV DECREASED GLUCOSE; Start 10/09/18 at 12:00 Dextrose (D50w Syringe) 50 ml Q15M PRN IV DECREASED GLUCOSE; Start 10/09/18 at 12:00 Glucagon (Glucagen) 1 mg Q15M PRN IM DECREASED GLUCOSE; Start 10/09/18 at 12:00 Glucose (Glutose) 15 gm Q15M PRN BUCCAL DECREASED GLUCOSE; Start 10/09/18 at 12:00 Diagnostic Test (Pha) (Accu-Chek) 1 ea AC MEALS AND BEDTIME XX Last administered on 10/14/18 11:10; Admin Dose 1 EA; Start 10/09/18 at 11:00 Insulin Glargine (Lantus) 35 units DAILY@0830 SC Last administered on 10/14/18 08:45; Admin Dose 35 UNITS; Start 10/10/18 at 09:00 Insulin Aspart (Novolog Insulin Pen) 8 unit WITH MEALS SC Last administered on 10/14/18 11:20; Admin Dose 8 UNIT; Start 10/10/18 at 11:30 Heparin Sodium (Porcine) (Heparin (1000 Units/ml)) 500 unit WITH DIALYSIS HE Last administered on 10/13/18at 13:54; Admin Dose 500 UNIT; Start 10/11/18 at 10:30 Apixaban (Eliquis) 5 mg BID PO Last administered on 10/13/18 20:19; Admin Dose 5 MG; Start 10/11/18 at 21:00 Aspirin (Aspirin) 81 mg DAILY PO Last administered on 10/14/18 08:23; Admin Dose 81 MG; Start 10/13/18 at 09:00 Albumin Human 100 ml @ 100 mls/hr DURING DIALYSIS PRN IV BLOOD PRESSURE SUPPORT Last administered on 10/13/18 11:32; Admin Dose 100 MLS/HR; Start 10/13/18 at 11:30 RAQUEL MCDOWELL MD October 14, 2018 16:17
[2018-10-14] MEDS: ACETAMINOPHEN 325 MG TAB PO PRN (19:57)
[2018-10-14] MEDS: ATORVASTATIN 40 MG TAB PO SCH (20:02)
[2018-10-15] VITALS (25 sets, daily range): BP systolic 116–143; BP diastolic 54–81; PULSE 56–87; RESP 16–20
[2018-10-15] MEDS: ACCU-CHEK XX SCH ×5 (02:00→20:21)
[2018-10-15] MEDS: FUROSEMIDE 40 MG TAB PO SCH ×2 (06:28→17:14)
--- NOTE | 2018-10-15 07:37 | CONS ---
Assessment/Plan Assessment/Plan Hospital Course (Demo Recall) Afib: new onset, rates controlled. Now on Eliquis CAD s/p CABG: CABG x4 10/07/18, ÁLVAREZ to LAD, SVG to ramus, SVG to OM1 sequenced to OM2. Doing well. Extubated 10/08, off pressors NSTEMI: Trop peak 1.1 and trended down. S/p cath 09/30/18 with diffuse multivessel CAD. CABG as below Upper GI bleed: due to anastomotic ulcer seen on EGD 09/26. No bleeding since. Black stools but on iron and stool occult negative. Hgb relatively stable. Anemia: due to above. s/p 5 units PRBCs and 2 units intraop. Wenckebach: Mobitz 1. Not on BB. No pauses or high grade block. 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 Now stopped DM ESRD on HD MWF: both fistula and right femoral HD cath nonfunctional. Unable to place right IJ. Now s/p left femoral catheter HTN H/o Billroth -check labs -was started on Eliquis 5mg BID for HD cath clotting issues, but also in afib so appropriate. Will need to monitor hgb. -ASA 81mg -continue to hold metoprolol as pt has Wenckebach and intermittent bradycardia -lipitor 40mg -lasix 40mg PO BID -HD per nephrology Consultation Date/Type/Reason Admit Date/Time September 24, 2018 at 08:08 Initial Consult Date 09/24/18 Type of Consult Cardiology Date/Time of Note DATE: 10/15/18 TIME: 07:36 24 HR Interval Summary Free Text/Dictation No events. No complaints. Overall still weak. Exam/Review of Systems Vital Signs Vitals Vital Signs Date Temp Pulse Resp B/P (MAP) Pulse Ox O2 O2 Flow FiO2 Time Delivery Rate 10/15/18 82 04:49 10/15/18 98.0 20 127/61 97 Nasal 2.0 03:48 (83) Cannula 10/13/18 21 18:48 Intake and Output 10/14/18 10/14/18 10/15/18 1515:00 23:00 07:00 IntakeIntake Total 750 ml 350 ml BalanceBalance 750 ml 350 ml Exam Constitutional: alert, oriented Psych: no complaints, nl mood/affect Neck: supple; No jvd Respiratory: diminished breath sounds; No clear to auscultation Cardiovascular: regular rate and rhythm, systolic murmur (2/6 GREGORY); No edema Gastrointestinal: soft, non-tender; No distended 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: nl mental status, nl speech Labs Result Diagram: 10/12/18 0516 10/12/18 0516 Results 24hrs Laboratory Tests Test 10/14/18 08:09 10/14/18 11:10 10/14/18 17:04 10/14/18 19:52 Bedside Glucose 188 189 164 141 Medications Medications Current Medications Miscellaneous Information (* Miscellaneous Pharmacy Order) Treatment of Hypoglycemia: 1.BG 51... Per protocol XX ; Start 10/07/18 at 21:00 Oxycodone/ Acetaminophen (Percocet (5/ 325)) 1 tab Q3H PRN PO PAIN LEVEL 1-5 Last administered on 10/12/18at 16:54; Admin Dose 1 TAB; Start 10/07/18 at 21:00 Oxycodone/ Acetaminophen (Percocet (5/ 325)) 2 tab Q3H PRN PO PAIN LEVEL 6-10 Last administered on 10/13/18at 05:59; Admin Dose 2 TAB; Start 10/07/18 at 21:00 Ondansetron HCl (Zofran Inj) 4 mg Q6H PRN IV NAUSEA AND/OR VOMITING Last administered on 10/09/18at 13:52; Admin Dose 4 MG; Start 10/07/18 at 21:00 Famotidine (Pepcid) 20 mg BID PO Last administered on 10/08/18at 20:29; Admin Dose 20 MG; Start 10/08/18 at 21:00; Status Hold Acetaminophen (Tylenol Tab) 650 mg Q3H PRN PO ELEVATED TEMPERATURE Last administered on 10/14/18at 19:57; Admin Dose 650 MG; Start 10/07/18 at 21:00 Diphenhydramine HCl (Benadryl) 25 mg PACU ORDER PRN IV .PRURITUS; Start 10/07/18 at 21:30 Atorvastatin Calcium (Lipitor) 40 mg HS PO Last administered on 10/14/18at 20:02; Admin Dose 40 MG; Start 10/08/18 at 21:00 Furosemide (Lasix) 40 mg BID DIURETICS PO Last administered on 10/15/18 06:28; Admin Dose 40 MG; Start 10/08/18 at 18:00 Diagnostic Test (Pha) (Accu-Chek) 1 ea 02 XX Last administered on 10/11/18 02:57; Admin Dose 1 EA; Start 10/10/18 at 02:00 Insulin Aspart (Novolog Insulin Pen) NOVOLOG *MODERATE* ALGORITHM WITH MEALS BEDTIME SC Last administered on 10/14/18at 17:12; Admin Dose 2 UNIT; Start 10/09/18 at 11:30 Glucose (Glutose) 15 gm Q15M PRN PO DECREASED GLUCOSE; Start 10/09/18 at 12:00 Glucose (Glutose) 22.5 gm Q15M PRN PO DECREASED GLUCOSE; Start 10/09/18 at 12:00 Dextrose (D50w Syringe) 25 ml Q15M PRN IV DECREASED GLUCOSE; Start 10/09/18 at 12:00 Dextrose (D50w Syringe) 50 ml Q15M PRN IV DECREASED GLUCOSE; Start 10/09/18 at 12:00 Glucagon (Glucagen) 1 mg Q15M PRN IM DECREASED GLUCOSE; Start 10/09/18 at 12:00 Glucose (Glutose) 15 gm Q15M PRN BUCCAL DECREASED GLUCOSE; Start 10/09/18 at 12:00 Diagnostic Test (Pha) (Accu-Chek) 1 ea AC MEALS AND BEDTIME XX Last administered on 10/15/18at 07:31; Admin Dose 1 EA; Start 10/09/18 at 11:00 Insulin Glargine (Lantus) 35 units DAILY@0830 SC Last administered on 10/14/18at 08:45; Admin Dose 35 UNITS; Start 10/10/18 at 09:00 Insulin Aspart (Novolog Insulin Pen) 8 unit WITH MEALS SC Last administered on 10/14/18at 17:11; Admin Dose 8 UNIT; Start 10/10/18 at 11:30 Heparin Sodium (Porcine) (Heparin (1000 Units/ml)) 500 unit WITH DIALYSIS HE Last administered on 10/13/18at 13:54; Admin Dose 500 UNIT; Start 10/11/18 at 10:30 Apixaban (Eliquis) 5 mg BID PO Last administered on 5/21/19at 20:02; Admin Dose 5 MG; Start 10/11/18 at 21:00 Aspirin (Aspirin) 81 mg DAILY PO Last administered on 10/14/18 08:23; Admin Dose 81 MG; Start 10/13/18 at 09:00 Albumin Human 100 ml @ 100 mls/hr DURING DIALYSIS PRN IV BLOOD PRESSURE SUPPORT Last administered on 10/13/18 11:32; Admin Dose 100 MLS/HR; Start 10/13/18 at 11:30 LAVON SEE October 15, 2018 07:37
[2018-10-15] MEDS: ASPIRIN 81 MG TAB PO SCH (08:07)
[2018-10-15] MEDS: APIXABAN 5 MG TABLET PO SCH ×2 (08:07→21:37)
[2018-10-15] MEDS: BALSAM PERU/CASTOR OIL 60 GM TUBE TOP SCH (08:07)
[2018-10-15] MEDS: INSULIN GLARGINE [LANTus] (100 UNITS/ML) SYG SC SCH (08:13)
[2018-10-15] MEDS: INSULIN ASPART [NOVOLOG] 3 ML PEN SC SCH ×7 (08:13→20:21)
--- NOTE | 2018-10-15 10:25 | PN ---
Date/Time of Note Date/Time of Note DATE: 10/15/18 TIME: 10:23 Assessment/Plan Lines/Catheters IV Catheter Type (from Nrs): Madi Pierre in Place (from Nrs): No Assessment/Plan Chief Complaint/Hosp Course -No current vascular intervention at this time given severe CAD S/P CABG. Life over limb at this time. -LLE toe gangrene dry and stable -Will continue to monitor his progress -Bilateral lower extremity atherosclerosis with left lower extremity with left lower extremity third toe gangrene: It seems that the patient's left lower extremity third toe has become dry gangrene and currently stable. Unfortunately his first and second toe have also become gangrene with no significant erythema. The patient's foot pain has gradually improved since we had seen him a month ago and followed him in the office over the past few weeks. From a vascular surgery standpoint, recommend no current intervention as the patient has likely an upper gastrointestinal bleed. We are hoping that the patient's lower extremity atherosclerotic disease will not worsen during this period of time. Resume anticoagulation and antiplatelet therapy when cleared by multidisciplinary team. There is concern he may require an amputation should he not improve and develop worsening gangrene. This was discussed in detail with the family given his plethora of medical conditions -Bilateral lower extremity varicose veins and edema: The patient has component of mixed disease (venous insufficiency and arterial sufficiency). At the moment, we recommend elevation of the bilateral lower extremities while at rest. No further intervention will be needed and can be followed as an outpatient in regards to venous insufficiency. -End-stage renal disease: At the moment the patient's left upper extremity fistula is nonfunctional. 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 Diann been asked by our multidisciplinary team to re-evaluate Optimize vascular status (BP meds, diet, nutrition, exercise, sugar control). W e will resume antiplatelet therapy once cleared from GI standpoint. Discussed findings, plan and management with the patient and at the bedside and they understand. Thank you for allowing us to partake in the care of your patient. Please call with any questions. A certified automotive tire technician was present throughout the conversation. Subjective 24 Hr Interval Summary patient tolerating HD via left femoral Madi catheter for now. Been asked to re-evaluate patient for access Constitutional: no complaints Exam/Review of Systems Vital Signs Vitals Vital Signs Date Temp Pulse Resp B/P (MAP) Pulse Ox O2 O2 Flow FiO2 Time Delivery Rate 10/15/18 81 08:00 10/15/18 Nasal 2.0 07:40 Cannula 10/15/18 98.0 16 132/63 97 07:37 (86) 10/13/18 21 18:48 Intake and Output 10/14/18 10/14/18 10/15/18 1515:00 23:00 07:00 IntakeIntake Total 750 ml 350 ml BalanceBalance 750 ml 350 ml Exam Free Text/Dictation GENERAL: Awake. PULMONARY: Coarse BS bilaterally, CARDIOVASCULAR: S1, S2 present. Dressing intact ABDOMEN: Soft, nontender, nondistended. Bowel sounds positive. Large truncal obesity. EXTREMITIES: Right lower extremity palpable femoral pulse, nonpalpable pedal pulse. Motor, sensory intact. Cap refill 3 to 4 seconds. Presence of varicose veins and large leg. Left lower extremity palpable femoral pulse, nonpalpable pedal pulse. Motor, sensory intact. Cap refill 3 to 4 seconds. Third toe gangrene, First and second toe with previous bluish discoloration and formation of gangrene now. Heel gangrene developing. groin catheter intact Varicose veins and edema of the left lower extremity with presence of mild lipodermatosclerosis. Left upper extremity: Palpable brachial pulse, motor/sensory intact, fistula with bruit and thrill not present Results Result Diagram: 10/15/1890110/15/18901 VANIA PEREYRA MD October 15, 2018 10:25
--- NOTE | 2018-10-15 14:27 | PN ---
Date/Time of Note Date/Time of Note DATE: 10/15/18 TIME: 14:20 Assessment/Plan VTE Prophylaxis Risk score (from Ns)>0 risk: 12 SCD applied (from Ns): Yes Pharmacological prophylaxis: NA/contraindicated Pharm contraindication: renal impairment Lines/Catheters IV Catheter Type (from [facility]): Madi Urinary Cath still in place: No Assessment/Plan Hospital Course 67 yo with numerous comorbidities including dyslipidemia, IDDM, ESRD on HD and severe PVD who is also anticoagulated on Eliquis/Plavix,here with worsening malaise, found to have severe anemia/positive stool OB... also had NSTEMI #NSTEMI/Multivessel coronary artery disease - s/p LHC 09/30 - s/p CABG 10/07 - Cautiously resume beta blockers. - Anticoag, antiplatelet per CT surgery. - Continue statin. #Severe acute symptomatic blood loss anemia -Improved with multiple transfusion. -Continue iron #Upper GI bleed -resolved -s/p EGD showed anastomotic ulcer (hx billroth II) -On PPI/Carafate #Mobitz type I heart block - Now post CABG will resume beta blockers - Maintain on telemetry #ESRD, hemodialysis MWF -Patient with poor vascular access currently using a Madi, vascular attempting placement of permacath in the coming days -Continue diuretics #DMII -Sugars are stable -Continue current regimen #Bilateral lower extremity atherosclerosis with left third toe dry gangrene -Chronic and stable issue and patient has been following up with vascular as outpatient-s/p angio 08/12 -Appreciate in-house vascular follow-up and no intervention recommended at this time. -Wound care #Obesity with BMI 36.3 -Weight reduction advised. #Anemia of ESRD -on Epogen with hemodialysis #Debility secondary to comorbidities -Continue PT DVT prophylaxis: SCDs PUD prophylaxis: Protonix DC planning: Patient with poor functional status, continue PT, half-way if patient unable to ambulate, family prefers to try PT in the hospital for another few days before deciding a half-way, vascular surgery for permacath placement Result Diagram: 10/15/1890110/15/18 0902 Results 24hrs Laboratory Tests Test 10/14/18 17:04 10/14/18 19:52 10/15/18 08:03 10/15/18 09:02 Bedside Glucose 164 141 211 White Blood Count 24.8 #H Red Blood Count 2.84 L Hemoglobin 8.2 L Hematocrit 25.4 L Mean Corpuscular 89.4 Volume Mean Corpuscular 28.9 L Hemoglobin Mean Corpuscular 32.3 Hemoglobin Concent Red Cell 16.2 H Distribution Width Platelet Count 388 # Mean Platelet Volume 11.4 H Immature 2.100 H Granulocytes % Neutrophils % 91.3 H Lymphocytes % 3.2 L Monocytes % 2.8 Eosinophils % 0.4 Basophils % 0.2 Nucleated Red Blood 0.0 Cells % Immature 0.530 H Granulocytes # Neutrophils # 22.6 H Lymphocytes # 0.8 Monocytes # 0.7 Eosinophils # 0.1 Basophils # 0.1 Nucleated Red Blood 0.0 Cells # Sodium Level 132 L Potassium Level 5.1 Chloride Level 95 L Carbon Dioxide Level 19 L Anion Gap 18 H Blood Urea Nitrogen 96 H Creatinine 10.09 H Est Glomerular 5 L Filtrat Rate mL/min Glucose Level 212 Calcium Level 8.8 Total Bilirubin 0.5 Direct Bilirubin 0.00 Indirect Bilirubin 0.5 Aspartate Amino 35 Transf (AST/SGOT) Alanine < 6 L Aminotransferase (AL T/SGPT) Alkaline Phosphatase 123 H Total Protein 7.3 Albumin 3.5 Globulin 3.80 H Albumin/Globulin 0.92 Ratio Test 10/15/18 11:43 Bedside Glucose 141 Subjective 24 Hr Interval Summary Constitutional: no complaints Exam/Review of Systems Exam Vitals Vital Signs Date Temp Pulse Resp B/P (MAP) Pulse Ox O2 O2 Flow FiO2 Time Delivery Rate 10/15/18 2.0 13:20 10/15/18 97.6 81 16 132/59 95 11:09 (83) 10/15/18 Nasal 07:40 Cannula 10/13/18 21 18:48 Intake and Output 10/14/18 10/14/18 10/15/18 1515:00 23:00 07:00 IntakeIntake Total 750 ml 350 ml BalanceBalance 750 ml 350 ml Constitutional: alert, oriented Respiratory: clear to auscultation Cardiovascular: regular rate and rhythm Gastrointestinal: soft; No distended Musculoskeletal: nl extremities to inspection Results Results 24hrs Laboratory Tests Test 10/14/18 17:04 10/14/18 19:52 10/15/18 08:03 10/15/18 09:02 Bedside Glucose 164 141 211 White Blood Count 24.8 #H Red Blood Count 2.84 L Hemoglobin 8.2 L Hematocrit 25.4 L Mean Corpuscular 89.4 Volume Mean Corpuscular 28.9 L Hemoglobin Mean Corpuscular 32.3 Hemoglobin Concent Red Cell 16.2 H Distribution Width Platelet Count 388 # Mean Platelet Volume 11.4 H Immature 2.100 H Granulocytes % Neutrophils % 91.3 H Lymphocytes % 3.2 L Monocytes % 2.8 Eosinophils % 0.4 Basophils % 0.2 Nucleated Red Blood 0.0 Cells % Immature 0.530 H Granulocytes # Neutrophils # 22.6 H Lymphocytes # 0.8 Monocytes # 0.7 Eosinophils # 0.1 Basophils # 0.1 Nucleated Red Blood 0.0 Cells # Sodium Level 132 L Potassium Level 5.1 Chloride Level 95 L Carbon Dioxide Level 19 L Anion Gap 18 H Blood Urea Nitrogen 96 H Creatinine 10.09 H Est Glomerular 5 L Filtrat Rate mL/min Glucose Level 212 Calcium Level 8.8 Total Bilirubin 0.5 Direct Bilirubin 0.00 Indirect Bilirubin 0.5 Aspartate Amino 35 Transf (AST/SGOT) Alanine < 6 L Aminotransferase (AL T/SGPT) Alkaline Phosphatase 123 H Total Protein 7.3 Albumin 3.5 Globulin 3.80 H Albumin/Globulin 0.92 Ratio Test 10/15/18 11:43 Bedside Glucose 141 Medications Medication Current Medications Miscellaneous Information (* Miscellaneous Pharmacy Order) Treatment of Hypoglycemia: 1.BG 51... Per protocol XX ; Start 10/07/18 at 21:00 Oxycodone/ Acetaminophen (Percocet (5/ 325)) 1 tab Q3H PRN PO PAIN LEVEL 1-5 Last administered on 10/12/18at 16:54; Admin Dose 1 TAB; Start 10/07/18 at 21:00 Oxycodone/ Acetaminophen (Percocet (5/ 325)) 2 tab Q3H PRN PO PAIN LEVEL 6-10 Last administered on 10/13/18at 05:59; Admin Dose 2 TAB; Start 10/07/18 at 21:00 Ondansetron HCl (Zofran Inj) 4 mg Q6H PRN IV NAUSEA AND/OR VOMITING Last administered on 10/09/18at 13:52; Admin Dose 4 MG; Start 10/07/18 at 21:00 Famotidine (Pepcid) 20 mg BID PO Last administered on 5/15/19at 20:29; Admin Dose 20 MG; Start 10/08/18 at 21:00; Status Hold Acetaminophen (Tylenol Tab) 650 mg Q3H PRN PO ELEVATED TEMPERATURE Last administered on 10/14/18 19:57; Admin Dose 650 MG; Start 10/07/18 at 21:00 Diphenhydramine HCl (Benadryl) 25 mg PACU ORDER PRN IV .PRURITUS; Start 10/07/18 at 21:30 Atorvastatin Calcium (Lipitor) 40 mg HS PO Last administered on 10/14/18 20:02; Admin Dose 40 MG; Start 10/08/18 at 21:00 Furosemide (Lasix) 40 mg BID DIURETICS PO Last administered on 10/15/18 06:28; Admin Dose 40 MG; Start 10/08/18 at 18:00 Diagnostic Test (Pha) (Accu-Chek) 1 ea 02 XX Last administered on 10/11/18 02:57; Admin Dose 1 EA; Start 10/10/18 at 02:00 Insulin Aspart (Novolog Insulin Pen) NOVOLOG *MODERATE* ALGORITHM WITH MEALS BEDTIME SC Last administered on 10/15/18 11:49; Admin Dose 2 UNIT; Start 10/09/18 at 11:30 Glucose (Glutose) 15 gm Q15M PRN PO DECREASED GLUCOSE; Start 10/09/18 at 12:00 Glucose (Glutose) 22.5 gm Q15M PRN PO DECREASED GLUCOSE; Start 10/09/18 at 12:00 Dextrose (D50w Syringe) 25 ml Q15M PRN IV DECREASED GLUCOSE; Start 10/09/18 at 12:00 Dextrose (D50w Syringe) 50 ml Q15M PRN IV DECREASED GLUCOSE; Start 10/09/18 at 12:00 Glucagon (Glucagen) 1 mg Q15M PRN IM DECREASED GLUCOSE; Start 10/09/18 at 12:00 Glucose (Glutose) 15 gm Q15M PRN BUCCAL DECREASED GLUCOSE; Start 10/09/18 at 12:00 Diagnostic Test (Pha) (Accu-Chek) 1 ea AC MEALS AND BEDTIME XX Last administered on 10/15/18 11:39; Admin Dose 1 EA; Start 10/09/18 at 11:00 Insulin Glargine (Lantus) 35 units DAILY@0830 SC Last administered on 10/15/18 08:13; Admin Dose 35 UNITS; Start 10/10/18 at 09:00 Insulin Aspart (Novolog Insulin Pen) 8 unit WITH MEALS SC Last administered on 10/15/18 11:49; Admin Dose 8 UNIT; Start 10/10/18 at 11:30 Heparin Sodium (Porcine) (Heparin (1000 Units/ml)) 500 unit WITH DIALYSIS HE Last administered on 10/13/18 13:54; Admin Dose 500 UNIT; Start 10/11/18 at 10:30 Apixaban (Eliquis) 5 mg BID PO Last administered on 10/15/18 08:07; Admin Dose 5 MG; Start 10/11/18 at 21:00 Aspirin (Aspirin) 81 mg DAILY PO Last administered on 10/15/18 08:07; Admin Dose 81 MG; Start 10/13/18 at 09:00 Albumin Human 100 ml @ 100 mls/hr DURING DIALYSIS PRN IV BLOOD PRESSURE SUPPORT Last administered on 10/13/18 11:32; Admin Dose 100 MLS/HR; Start 10/13/18 at 11:30 LORI VINES October 15, 2018 14:27
[2018-10-15] MEDS: ACETAMINOPHEN 325 MG TAB PO PRN (14:55)
[2018-10-15] MEDS ORDERED: ALTEPLASE (CATHFLO) 2 MG INJ CATHETER ONE (16:00)
[2018-10-15] MEDS: HEPARIN 1000 UNITS/ML 10 ML INJ HE SCH (16:15)
--- NOTE | 2018-10-15 19:25 | CONS ---
Assessment/Plan Assessment/Plan Assessment/Plan (Daily) 1. acute Hyperkalemia due to GI bleeding- resolved 2.Acute fluid overload with Uremia BUN 111 on admission 3. acute GI bleeding causing acute blood loss anemia- S/p Status post EGD/colonoscopy 09/27/19 -Anastomosis ulcer -Normal colonoscopy 4. Severe Anemia with Hb 5.8 on admission s/p 5 U PRBC transfusion for GI bleeding during this admission 5. H/O HTN 6. H/O peripherla vascular disease 7. ESRD on HD -follow up at [facility] for scheduled HD on MWF 8. acute NSTEMI s/p LHC on 09/30/18 that showed 3 V CAD- s/p CABG on 10/07/18 Plan: s/p CABG on 10/07/18-s/p left groin Randy, - workign good today, s/p HD yesterday 2.2 L removed, HD ordered for tomorrow pt extensive IVC thrombosis, IR said they can not do , D/w Dr. Velasco - plan is ot have Angiogram of Bilateral LE on 10/21/18 and subsequent Attempt to covert randy to permacath if possible d/w famliy about very poor vascular access Lasix 40mg pO BID will follow up Consultation Date/Type/Reason Admit Date/Time September 24, 2018 at 08:08 Initial Consult Date 09/24/18 Type of Consult NEPHROLOGY Date/Time of Note DATE: 10/15/18 TIME: 19:25 Exam/Review of Systems Exam Vitals Vital Signs Date Temp Pulse Resp B/P (MAP) Pulse Ox O2 O2 Flow FiO2 Time Delivery Rate 10/15/18 83 18:40 10/15/18 18 122/56 98 Nasal 2.0 16:10 (78) Cannula 10/15/18 98.5 15:36 10/13/18 21 18:48 Intake and Output 10/14/18 10/14/18 10/15/18 1515:00 23:00 07:00 IntakeIntake Total 750 ml 350 ml BalanceBalance 750 ml 350 ml Results Result Diagram: 10/15/18 0902 10/15/18 0902 Results 24hrs Laboratory Tests Test 10/14/18 19:52 10/15/18 08:03 10/15/18 09:02 10/15/18 11:43 Bedside Glucose 141 211 141 White Blood Count 24.8 #H Red Blood Count 2.84 L Hemoglobin 8.2 L Hematocrit 25.4 L Mean Corpuscular 89.4 Volume Mean Corpuscular 28.9 L Hemoglobin Mean Corpuscular 32.3 Hemoglobin Concent Red Cell 16.2 H Distribution Width Platelet Count 388 # Mean Platelet Volume 11.4 H Immature 2.100 H Granulocytes % Neutrophils % 91.3 H Lymphocytes % 3.2 L Monocytes % 2.8 Eosinophils % 0.4 Basophils % 0.2 Nucleated Red Blood 0.0 Cells % Immature 0.530 H Granulocytes # Neutrophils # 22.6 H Lymphocytes # 0.8 Monocytes # 0.7 Eosinophils # 0.1 Basophils # 0.1 Nucleated Red Blood 0.0 Cells # Sodium Level 132 L Potassium Level 5.1 Chloride Level 95 L Carbon Dioxide Level 19 L Anion Gap 18 H Blood Urea Nitrogen 96 H Creatinine 10.09 H Est Glomerular 5 L Filtrat Rate mL/min Glucose Level 212 Calcium Level 8.8 Total Bilirubin 0.5 Direct Bilirubin 0.00 Indirect Bilirubin 0.5 Aspartate Amino 35 Transf (AST/SGOT) Alanine < 6 L Aminotransferase (AL T/SGPT) Alkaline Phosphatase 123 H Total Protein 7.3 Albumin 3.5 Globulin 3.80 H Albumin/Globulin 0.92 Ratio Test 10/15/18 16:40 Bedside Glucose 90 Medications Medication Current Medications Miscellaneous Information (* Miscellaneous Pharmacy Order) Treatment of Hypoglycemia: 1.BG 51... Per protocol XX ; Start 10/07/18 at 21:00 Oxycodone/ Acetaminophen (Percocet (5/ 325)) 1 tab Q3H PRN PO PAIN LEVEL 1-5 Last administered on 10/12/18at 16:54; Admin Dose 1 TAB; Start 10/07/18 at 21:00 Oxycodone/ Acetaminophen (Percocet (5/ 325)) 2 tab Q3H PRN PO PAIN LEVEL 6-10 Last administered on 10/13/18at 05:59; Admin Dose 2 TAB; Start 10/07/18 at 21:00 Ondansetron HCl (Zofran Inj) 4 mg Q6H PRN IV NAUSEA AND/OR VOMITING Last administered on 10/09/18at 13:52; Admin Dose 4 MG; Start 10/07/18 at 21:00 Famotidine (Pepcid) 20 mg BID PO Last administered on 10/08/18 20:29; Admin Dose 20 MG; Start 10/08/18 at 21:00; Status Hold Acetaminophen (Tylenol Tab) 650 mg Q3H PRN PO ELEVATED TEMPERATURE Last administered on 10/15/18at 14:55; Admin Dose 650 MG; Start 10/07/18 at 21:00 Diphenhydramine HCl (Benadryl) 25 mg PACU ORDER PRN IV .PRURITUS; Start 10/07/18 at 21:30 Atorvastatin Calcium (Lipitor) 40 mg HS PO Last administered on 10/14/18 20:02; Admin Dose 40 MG; Start 10/08/18 at 21:00 Furosemide (Lasix) 40 mg BID DIURETICS PO Last administered on 10/15/18 17:14; Admin Dose 40 MG; Start 10/08/18 at 18:00 Diagnostic Test (Pha) (Accu-Chek) 1 ea 02 XX Last administered on 10/11/18 02:57; Admin Dose 1 EA; Start 10/10/18 at 02:00 Insulin Aspart (Novolog Insulin Pen) NOVOLOG *MODERATE* ALGORITHM WITH MEALS BEDTIME SC Last administered on 10/15/18 11:49; Admin Dose 2 UNIT; Start 10/09/18 at 11:30 Glucose (Glutose) 15 gm Q15M PRN PO DECREASED GLUCOSE; Start 10/09/18 at 12:00 Glucose (Glutose) 22.5 gm Q15M PRN PO DECREASED GLUCOSE; Start 10/09/18 at 12:00 Dextrose (D50w Syringe) 25 ml Q15M PRN IV DECREASED GLUCOSE; Start 10/09/18 at 12:00 Dextrose (D50w Syringe) 50 ml Q15M PRN IV DECREASED GLUCOSE; Start 10/09/18 at 12:00 Glucagon (Glucagen) 1 mg Q15M PRN IM DECREASED GLUCOSE; Start 10/09/18 at 12:00 Glucose (Glutose) 15 gm Q15M PRN BUCCAL DECREASED GLUCOSE; Start 10/09/18 at 12:00 Diagnostic Test (Pha) (Accu-Chek) 1 ea AC MEALS AND BEDTIME XX Last administered on 10/15/18at 17:15; Admin Dose 1 EA; Start 10/09/18 at 11:00 Insulin Glargine (Lantus) 35 units DAILY@0830 SC Last administered on 10/15/18 08:13; Admin Dose 35 UNITS; Start 10/10/18 at 09:00 Insulin Aspart (Novolog Insulin Pen) 8 unit WITH MEALS SC Last administered on 10/15/18 11:49; Admin Dose 8 UNIT; Start 10/10/18 at 11:30 Heparin Sodium (Porcine) (Heparin (1000 Units/ml)) 500 unit WITH DIALYSIS HE Last administered on 10/15/18 16:15; Admin Dose 500 UNIT; Start 10/11/18 at 10:30 Apixaban (Eliquis) 5 mg BID PO Last administered on 10/15/18 08:07; Admin Dose 5 MG; Start 10/11/18 at 21:00 Aspirin (Aspirin) 81 mg DAILY PO Last administered on 10/15/18 08:07; Admin Dose 81 MG; Start 10/13/18 at 09:00 Albumin Human 100 ml @ 100 mls/hr DURING DIALYSIS PRN IV BLOOD PRESSURE SUPPORT Last administered on 10/13/18 11:32; Admin Dose 100 MLS/HR; Start 10/13/18 at 11:30 RAQUEL MCDOWELL MD October 15, 2018 19:25
[2018-10-15] MEDS: ATORVASTATIN 40 MG TAB PO SCH (21:37)
[2018-10-16] VITALS (12 sets, daily range): BP systolic 113–175; BP diastolic 56–66; PULSE 53–85; RESP 18–19
[2018-10-16] MEDS: ACCU-CHEK XX SCH ×5 (02:00→20:27)
[2018-10-16] MEDS ORDERED: MAGNESIUM HYDROXIDE 30ML CUP PO PRN (06:30)
[2018-10-16] MEDS: FUROSEMIDE 40 MG TAB PO SCH ×2 (06:59→17:52)
[2018-10-16] MEDS: BALSAM PERU/CASTOR OIL 60 GM TUBE TOP SCH (07:38)
[2018-10-16] MEDS: APIXABAN 5 MG TABLET PO SCH ×2 (07:38→20:19)
[2018-10-16] MEDS: ASPIRIN 81 MG TAB PO SCH (07:38)
[2018-10-16] MEDS: INSULIN ASPART [NOVOLOG] 3 ML PEN SC SCH ×7 (07:43→20:19)
[2018-10-16] MEDS: INSULIN GLARGINE [LANTus] (100 UNITS/ML) SYG SC SCH (08:45)
[2018-10-16] MEDS: FAMOTIDINE 20 MG TAB PO SCH ×2 (09:00→20:19)
--- NOTE | 2018-10-16 09:44 | CONS ---
Assessment/Plan Assessment/Plan Hospital Course (Demo Recall) Afib/flutter: new onset, rates controlled. Now on Eliquis CAD s/p CABG: CABG x4 10/07/18, ÁLVAREZ to LAD, SVG to ramus, SVG to OM1 sequenced to OM2. Doing well. Extubated 10/08, off pressors NSTEMI: Trop peak 1.1 and trended down. S/p cath 09/30/18 with diffuse multivessel CAD. CABG as below Upper GI bleed: due to anastomotic ulcer seen on EGD 09/26. No bleeding since. Black stools but on iron and stool occult negative. Hgb relatively stable. Anemia: due to above. s/p 5 units PRBCs and 2 units intraop. Wenckebach: Mobitz 1. Not on BB. No pauses or high grade block. 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 Now stopped DM ESRD on HD MWF: both fistula and right femoral HD cath nonfunctional. Unable to place right IJ. Now s/p left femoral catheter HTN H/o Billroth -was started on Eliquis 5mg BID for HD cath clotting issues, but also in afib so appropriate. Will need to monitor hgb. -ASA 81mg -continue to hold metoprolol as pt has Wenckebach and intermittent bradycardia. Can start if afib with RVR -lipitor 40mg -lasix 40mg PO BID -HD per nephrology Consultation Date/Type/Reason Admit Date/Time September 24, 2018 at 08:08 Initial Consult Date 09/24/18 Type of Consult Cardiology Date/Time of Note DATE: 10/16/18 TIME: 09:43 24 HR Interval Summary Free Text/Dictation s/p HD yesterday. Awake and alert but appears depressed. agrees. Exam/Review of Systems Vital Signs Vitals Vital Signs Date Temp Pulse Resp B/P (MAP) Pulse Ox O2 O2 Flow FiO2 Time Delivery Rate 10/16/18 81 08:00 10/16/18 Nasal 2.0 07:46 Cannula 10/16/18 98.3 18 136/64 97 07:04 (88) 10/13/18 21 18:48 Intake and Output 510/15/18 10/16/18 1515:00 23:00 07:00 IntakeIntake Total 350 ml 150 ml OutputOutput Total 2600 ml BalanceBalance -2250 ml 150 ml Exam Constitutional: alert, oriented Psych: depression Head: normocephalic, atraumatic Neck: No jvd Respiratory: diminished breath sounds; No clear to auscultation Cardiovascular: regular rate and rhythm, systolic murmur (2/6 GREGORY); No edema Gastrointestinal: soft, non-tender; No distended 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: nl mental status, nl speech Labs Result Diagram: 10/16/18 0550 10/16/18 0550 Results 24hrs Laboratory Tests Test 10/15/18 11:43 10/15/18 16:40 10/15/18 19:43 10/16/18 05:50 Bedside Glucose 141 90 93 White Blood Count 21.8 H Red Blood Count 2.68 L Hemoglobin 7.7 L Hematocrit 23.3 L Mean Corpuscular 86.9 Volume Mean Corpuscular 28.7 L Hemoglobin Mean Corpuscular 33.0 Hemoglobin Concent Red Cell 15.9 H Distribution Width Platelet Count 394 Mean Platelet Volume 11.1 H Immature 1.400 H Granulocytes % Neutrophils % 87.6 H Lymphocytes % 3.9 L Monocytes % 6.3 Eosinophils % 0.5 Basophils % 0.3 Nucleated Red Blood 0.1 H Cells % Immature 0.300 H Granulocytes # Neutrophils # 19.1 H Lymphocytes # 0.9 Monocytes # 1.4 H Eosinophils # 0.1 Basophils # 0.1 Nucleated Red Blood 0.0 Cells # Sodium Level 134 L Potassium Level 5.2 H Chloride Level 99 Carbon Dioxide Level 17 L Anion Gap 18 H Blood Urea Nitrogen 82 H Creatinine 8.92 H Est Glomerular 6 L Filtrat Rate mL/min Glucose Level 240 H Calcium Level 8.3 L Test 10/16/18 07:38 Bedside Glucose 228 H Medications Medications Current Medications Miscellaneous Information (* Miscellaneous Pharmacy Order) Treatment of Hypoglycemia: 1.BG 51... Per protocol XX ; Start 10/07/18 at 21:00 Oxycodone/ Acetaminophen (Percocet (5/ 325)) 1 tab Q3H PRN PO PAIN LEVEL 1-5 Last administered on 10/12/18at 16:54; Admin Dose 1 TAB; Start 10/07/18 at 21:00 Oxycodone/ Acetaminophen (Percocet (5/ 325)) 2 tab Q3H PRN PO PAIN LEVEL 6-10 Last administered on 10/13/18 05:59; Admin Dose 2 TAB; Start 10/07/18 at 21:00 Ondansetron HCl (Zofran Inj) 4 mg Q6H PRN IV NAUSEA AND/OR VOMITING Last administered on 10/09/18 13:52; Admin Dose 4 MG; Start 10/07/18 at 21:00 Famotidine (Pepcid) 20 mg BID PO Last administered on 10/08/18 20:29; Admin Dose 20 MG; Start 10/08/18 at 21:00 Acetaminophen (Tylenol Tab) 650 mg Q3H PRN PO ELEVATED TEMPERATURE Last administered on 10/15/18 14:55; Admin Dose 650 MG; Start 10/07/18 at 21:00 Diphenhydramine HCl (Benadryl) 25 mg PACU ORDER PRN IV .PRURITUS; Start 10/07/18 at 21:30 Atorvastatin Calcium (Lipitor) 40 mg HS PO Last administered on 10/15/18 21:37; Admin Dose 40 MG; Start 10/08/18 at 21:00 Furosemide (Lasix) 40 mg BID DIURETICS PO Last administered on 10/16/18 06:59; Admin Dose 40 MG; Start 10/08/18 at 18:00 Diagnostic Test (Pha) (Accu-Chek) 1 ea 02 XX Last administered on 10/11/18 02:57; Admin Dose 1 EA; Start 10/10/18 at 02:00 Insulin Aspart (Novolog Insulin Pen) NOVOLOG *MODERATE* ALGORITHM WITH MEALS BEDTIME SC Last administered on 10/16/18 07:43; Admin Dose 6 UNIT; Start 10/09/18 at 11:30 Glucose (Glutose) 15 gm Q15M PRN PO DECREASED GLUCOSE; Start 10/09/18 at 12:00 Glucose (Glutose) 22.5 gm Q15M PRN PO DECREASED GLUCOSE; Start 10/09/18 at 12:00 Dextrose (D50w Syringe) 25 ml Q15M PRN IV DECREASED GLUCOSE; Start 10/09/18 at 12:00 Dextrose (D50w Syringe) 50 ml Q15M PRN IV DECREASED GLUCOSE; Start 10/09/18 at 12:00 Glucagon (Glucagen) 1 mg Q15M PRN IM DECREASED GLUCOSE; Start 10/09/18 at 12:00 Glucose (Glutose) 15 gm Q15M PRN BUCCAL DECREASED GLUCOSE; Start 10/09/18 at 12:00 Diagnostic Test (Pha) (Accu-Chek) 1 ea AC MEALS AND BEDTIME XX Last administered on 10/15/18 20:21; Admin Dose 1 EA; Start 10/09/18 at 11:00 Insulin Glargine (Lantus) 35 units DAILY@0830 SC Last administered on 10/16/18 08:45; Admin Dose 35 UNITS; Start 10/10/18 at 09:00 Insulin Aspart (Novolog Insulin Pen) 8 unit WITH MEALS SC Last administered on 10/16/18 07:43; Admin Dose 8 UNIT; Start 10/10/18 at 11:30 Heparin Sodium (Porcine) (Heparin (1000 Units/ml)) 500 unit WITH DIALYSIS HE Last administered on 10/15/18 16:15; Admin Dose 500 UNIT; Start 10/11/18 at 10:30 Apixaban (Eliquis) 5 mg BID PO Last administered on 10/16/18 07:38; Admin Dose 5 MG; Start 10/11/18 at 21:00 Aspirin (Aspirin) 81 mg DAILY PO Last administered on 10/16/18 07:38; Admin Dose 81 MG; Start 10/13/18 at 09:00 Albumin Human 100 ml @ 100 mls/hr DURING DIALYSIS PRN IV BLOOD PRESSURE SUPPORT Last administered on 10/13/18 11:32; Admin Dose 100 MLS/HR; Start 10/13/18 at 11:30 Magnesium Hydroxide (Milk Of Mag) 30 ml DAILY PRN PO CONSTIPATION; Start 10/16/18 at 06:30 LAVON SEE October 16, 2018 09:44
[2018-10-16] MEDS: PAROXETINE (CR) 12.5 MG TAB PO SCH (11:43)
[2018-10-16] MEDS: ACETAMINOPHEN 325 MG TAB PO PRN ×2 (12:03→20:19)
--- NOTE | 2018-10-16 14:05 | CONS ---
Assessment/Plan Assessment/Plan Assessment/Plan (Daily) 1. acute Hyperkalemia due to GI bleeding- resolved 2.Acute fluid overload with Uremia BUN 111 on admission 3. acute GI bleeding causing acute blood loss anemia- S/p Status post EGD/colonoscopy 09/27/19 -Anastomosis ulcer -Normal colonoscopy 4. Severe Anemia with Hb 5.8 on admission s/p 5 U PRBC transfusion for GI bleeding during this admission 5. H/O HTN 6. H/O peripherla vascular disease 7. ESRD on HD -follow up at [facility] HD datil for scheduled HD on MWF 8. acute NSTEMI s/p LHC on 09/30/18 that showed 3 V CAD- s/p CABG on 10/07/18 Plan: s/p CABG on 10/07/18-s/p left groin Randy, - HD ordered for Saturday pt extensive IVC thrombosis, IR said they can not do , D/w Dr. Velasco - plan is to have Angiogram of Bilateral LE on 10/21/18 and subsequent Attempt to convert randy to permacath if possible d/w famliy about very poor vascular access Lasix 40mg pO BID will follow up Consultation Date/Type/Reason Admit Date/Time September 24, 2018 at 08:08 Initial Consult Date 09/24/18 Type of Consult NEPHROLOGY Date/Time of Note DATE: 10/16/18 TIME: 14:05 Exam/Review of Systems Exam Vitals Vital Signs Date Temp Pulse Resp B/P (MAP) Pulse Ox O2 O2 Flow FiO2 Time Delivery Rate 10/16/18 60 12:00 10/16/18 98.0 18 128/66 97 Nasal 3.0 11:55 (86) Cannula 10/13/18 21 18:48 Intake and Output 10/15/18 10/15/18 10/16/18 1515:00 23:00 07:00 IntakeIntake Total 350 ml 150 ml OutputOutput Total 2600 ml BalanceBalance -2250 ml 150 ml Exam Constitutional: arousable, sleepy Neck: supple, no JVD, no LAD Respiratory: crackles/rales, diminished breath sounds Cardiovascular: regular rate and rhythm, nl pulses Gastrointestinal: soft, non-tender Musculoskeletal: swelling Extremities: normal pulses 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: awake, alert, non focal Results Result Diagram: 10/16/18 0550 10/16/18 0550 Results 24hrs Laboratory Tests Test 10/15/18 16:40 10/15/18 19:43 10/16/18 05:50 10/16/18 07:38 Bedside Glucose 90 93 228 H White Blood Count 21.8 H Red Blood Count 2.68 L Hemoglobin 7.7 L Hematocrit 23.3 L Mean Corpuscular 86.9 Volume Mean Corpuscular 28.7 L Hemoglobin Mean Corpuscular 33.0 Hemoglobin Concent Red Cell 15.9 H Distribution Width Platelet Count 394 Mean Platelet Volume 11.1 H Immature 1.400 H Granulocytes % Neutrophils % 87.6 H Lymphocytes % 3.9 L Monocytes % 6.3 Eosinophils % 0.5 Basophils % 0.3 Nucleated Red Blood 0.1 H Cells % Immature 0.300 H Granulocytes # Neutrophils # 19.1 H Lymphocytes # 0.9 Monocytes # 1.4 H Eosinophils # 0.1 Basophils # 0.1 Nucleated Red Blood 0.0 Cells # Sodium Level 134 L Potassium Level 5.2 H Chloride Level 99 Carbon Dioxide Level 17 L Anion Gap 18 H Blood Urea Nitrogen 82 H Creatinine 8.92 H Est Glomerular 6 L Filtrat Rate mL/min Glucose Level 240 H Calcium Level 8.3 L Test 10/16/18 11:43 Bedside Glucose 166 Medications Medication Current Medications Miscellaneous Information (* Miscellaneous Pharmacy Order) Treatment of Hypoglycemia: 1.BG 51... Per protocol XX ; Start 10/07/18 at 21:00 Oxycodone/ Acetaminophen (Percocet (5/ 325)) 1 tab Q3H PRN PO PAIN LEVEL 1-5 Last administered on 10/12/18at 16:54; Admin Dose 1 TAB; Start 10/07/18 at 21:00 Oxycodone/ Acetaminophen (Percocet (5/ 325)) 2 tab Q3H PRN PO PAIN LEVEL 6-10 Last administered on 10/13/18at 05:59; Admin Dose 2 TAB; Start 10/07/18 at 21:00 Ondansetron HCl (Zofran Inj) 4 mg Q6H PRN IV NAUSEA AND/OR VOMITING Last administered on 10/09/18at 13:52; Admin Dose 4 MG; Start 10/07/18 at 21:00 Famotidine (Pepcid) 20 mg BID PO Last administered on 10/16/18at 09:00; Admin Dose 20 MG; Start 10/08/18 at 21:00 Acetaminophen (Tylenol Tab) 650 mg Q3H PRN PO ELEVATED TEMPERATURE Last administered on 10/16/18 12:03; Admin Dose 650 MG; Start 10/07/18 at 21:00 Diphenhydramine HCl (Benadryl) 25 mg PACU ORDER PRN IV .PRURITUS; Start 10/07/18 at 21:30 Atorvastatin Calcium (Lipitor) 40 mg HS PO Last administered on 10/15/18 21:37; Admin Dose 40 MG; Start 10/08/18 at 21:00 Furosemide (Lasix) 40 mg BID DIURETICS PO Last administered on 10/16/18 06:59; Admin Dose 40 MG; Start 10/08/18 at 18:00 Diagnostic Test (Pha) (Accu-Chek) 1 ea 02 XX Last administered on 10/11/18 02:57; Admin Dose 1 EA; Start 10/10/18 at 02:00 Insulin Aspart (Novolog Insulin Pen) NOVOLOG *MODERATE* ALGORITHM WITH MEALS BEDTIME SC Last administered on 10/16/18 12:00; Admin Dose 2 UNIT; Start 10/09/18 at 11:30 Glucose (Glutose) 15 gm Q15M PRN PO DECREASED GLUCOSE; Start 10/09/18 at 12:00 Glucose (Glutose) 22.5 gm Q15M PRN PO DECREASED GLUCOSE; Start 10/09/18 at 12:00 Dextrose (D50w Syringe) 25 ml Q15M PRN IV DECREASED GLUCOSE; Start 10/09/18 at 12:00 Dextrose (D50w Syringe) 50 ml Q15M PRN IV DECREASED GLUCOSE; Start 10/09/18 at 12:00 Glucagon (Glucagen) 1 mg Q15M PRN IM DECREASED GLUCOSE; Start 10/09/18 at 12:00 Glucose (Glutose) 15 gm Q15M PRN BUCCAL DECREASED GLUCOSE; Start 10/09/18 at 12:00 Diagnostic Test (Pha) (Accu-Chek) 1 ea AC MEALS AND BEDTIME XX Last administered on 10/15/18 20:21; Admin Dose 1 EA; Start 10/09/18 at 11:00 Insulin Glargine (Lantus) 35 units DAILY@0830 SC Last administered on 5/23/19at 08:45; Admin Dose 35 UNITS; Start 10/10/18 at 09:00 Insulin Aspart (Novolog Insulin Pen) 8 unit WITH MEALS SC Last administered on 10/16/18 12:00; Admin Dose 8 UNIT; Start 10/10/18 at 11:30 Heparin Sodium (Porcine) (Heparin (1000 Units/ml)) 500 unit WITH DIALYSIS HE Last administered on 10/15/18at 16:15; Admin Dose 500 UNIT; Start 10/11/18 at 10:30 Apixaban (Eliquis) 5 mg BID PO Last administered on 10/16/18at 07:38; Admin Dose 5 MG; Start 10/11/18 at 21:00 Aspirin (Aspirin) 81 mg DAILY PO Last administered on 10/16/18 07:38; Admin Dose 81 MG; Start 10/13/18 at 09:00 Albumin Human 100 ml @ 100 mls/hr DURING DIALYSIS PRN IV BLOOD PRESSURE SUPPORT Last administered on 10/13/18at 11:32; Admin Dose 100 MLS/HR; Start 10/13/18 at 11:30 Magnesium Hydroxide (Milk Of Mag) 30 ml DAILY PRN PO CONSTIPATION; Start 10/16/18 at 06:30 Paroxetine HCl (Paxil Cr) 25 mg DAILY PO Last administered on 10/16/18 11:43; Admin Dose 25 MG; Start 10/16/18 at 11:00 RAQUEL MCDOWELL MD October 16, 2018 14:05
--- NOTE | 2018-10-16 17:37 | PN ---
Date/Time of Note Date/Time of Note DATE: 10/16/18 TIME: 17:33 Assessment/Plan VTE Prophylaxis Risk score (from Ns)>0 risk: 6 SCD applied (from [facility]): Yes Pharmacological prophylaxis: NA/contraindicated Pharm contraindication: renal impairment Lines/Catheters IV [facility]ter [facility]from [facility] randy Urinary Cath still in place: No Assessment/Plan Hospital Course 67 yo with numerous comorbidities including dyslipidemia, IDDM, ESRD on HD and severe PVD who is also anticoagulated on Eliquis/Plavix,here with worsening malaise, found to have severe anemia/positive stool OB... also had NSTEMI #NSTEMI/Multivessel coronary artery disease - s/p LHC 09/30 - s/p CABG 10/07 - Cautiously resume beta blockers. - Anticoag, antiplatelet per CT surgery - Continue statin. #Severe acute symptomatic blood loss anemia -Improved with multiple transfusion. 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 -Wound care #Obesity with BMI 36.3 -Weight reduction advised. #Anemia of ESRD -on Epogen with hemodialysis #Debility secondary to comorbidities -Continue PT -ARU eval #Depression -Start Paxil DVT prophylaxis: SCDs PUD prophylaxis: Protonix DC planning: Patient with poor functional status, continue PT, ARU vs nursing h ome if patient unable to ambulate, family prefers to try PT in the hospital for another few days before deciding a retirement, vascular surgery for permacath placement Result Diagram: 10/16/18 0550 10/16/18 0550 Results 24hrs Laboratory Tests Test 10/15/18 19:43 10/16/18 05:50 10/16/18 07:38 10/16/18 11:43 Bedside Glucose 93 228 H 166 White Blood Count 21.8 H Red Blood Count 2.68 L Hemoglobin 7.7 L Hematocrit 23.3 L Mean Corpuscular 86.9 Volume Mean Corpuscular 28.7 L Hemoglobin Mean Corpuscular 33.0 Hemoglobin Concent Red Cell 15.9 H Distribution Width Platelet Count 394 Mean Platelet Volume 11.1 H Immature 1.400 H Granulocytes % Neutrophils % 87.6 H Lymphocytes % 3.9 L Monocytes % 6.3 Eosinophils % 0.5 Basophils % 0.3 Nucleated Red Blood 0.1 H Cells % Immature 0.300 H Granulocytes # Neutrophils # 19.1 H Lymphocytes # 0.9 Monocytes # 1.4 H Eosinophils # 0.1 Basophils # 0.1 Nucleated Red Blood 0.0 Cells # Sodium Level 134 L Potassium Level 5.2 H Chloride Level 99 Carbon Dioxide Level 17 L Anion Gap 18 H Blood Urea Nitrogen 82 H Creatinine 8.92 H Est Glomerular 6 L Filtrat Rate mL/min Glucose Level 240 H Calcium Level 8.3 L Test 10/16/18 17:03 Bedside Glucose 108 Subjective 24 Hr Interval Summary Constitutional: no complaints Exam/Review of Systems Exam Vitals Vital Signs Date Temp Pulse Resp B/P (MAP) Pulse Ox O2 O2 Flow FiO2 Time Delivery Rate 10/16/18 53 16:00 10/16/18 97.9 19 123/64 100 Nasal 3.0 14:54 (83) Cannula 10/13/18 21 18:48 Intake and Output 10/15/18 10/15/18 10/16/18 1515:00 23:00 07:00 IntakeIntake Total 350 ml 150 ml OutputOutput Total 2600 ml BalanceBalance -2250 ml 150 ml Constitutional: alert, oriented Respiratory: clear to auscultation Cardiovascular: regular rate and rhythm Gastrointestinal: soft; No distended Musculoskeletal: nl extremities to inspection Results Results 24hrs Laboratory Tests Test 10/15/18 19:43 10/16/18 05:50 10/16/18 07:38 10/16/18 11:43 Bedside Glucose 93 228 H 166 White Blood Count 21.8 H Red Blood Count 2.68 L Hemoglobin 7.7 L Hematocrit 23.3 L Mean Corpuscular 86.9 Volume Mean Corpuscular 28.7 L Hemoglobin Mean Corpuscular 33.0 Hemoglobin Concent Red Cell 15.9 H Distribution Width Platelet Count 394 Mean Platelet Volume 11.1 H Immature 1.400 H Granulocytes % Neutrophils % 87.6 H Lymphocytes % 3.9 L Monocytes % 6.3 Eosinophils % 0.5 Basophils % 0.3 Nucleated Red Blood 0.1 H Cells % Immature 0.300 H Granulocytes # Neutrophils # 19.1 H Lymphocytes # 0.9 Monocytes # 1.4 H Eosinophils # 0.1 Basophils # 0.1 Nucleated Red Blood 0.0 Cells # Sodium Level 134 L Potassium Level 5.2 H Chloride Level 99 Carbon Dioxide Level 17 L Anion Gap 18 H Blood Urea Nitrogen 82 H Creatinine 8.92 H Est Glomerular 6 L Filtrat Rate mL/min Glucose Level 240 H Calcium Level 8.3 L Test 10/16/18 17:03 Bedside Glucose 108 Medications Medication Current Medications Miscellaneous Information (* Miscellaneous Pharmacy Order) Treatment of Hypoglycemia: 1.BG 51... Per protocol XX ; Start 10/07/18 at 21:00 Oxycodone/ Acetaminophen (Percocet (5/ 325)) 1 tab Q3H PRN PO PAIN LEVEL 1-5 Last administered on 10/12/18at 16:54; Admin Dose 1 TAB; Start 10/07/18 at 21:00 Oxycodone/ Acetaminophen (Percocet (5/ 325)) 2 tab Q3H PRN PO PAIN LEVEL 6-10 Last administered on 10/13/18at 05:59; Admin Dose 2 TAB; Start 10/07/18 at 21:00 Ondansetron HCl (Zofran Inj) 4 mg Q6H PRN IV NAUSEA AND/OR VOMITING Last administered on 10/09/18at 13:52; Admin Dose 4 MG; Start 10/07/18 at 21:00 Famotidine (Pepcid) 20 mg BID PO Last administered on 10/16/18at 09:00; Admin Dose 20 MG; Start 10/08/18 at 21:00 Acetaminophen (Tylenol Tab) 650 mg Q3H PRN PO ELEVATED TEMPERATURE Last administered on 10/16/18at 12:03; Admin Dose 650 MG; Start 10/07/18 at 21:00 Diphenhydramine HCl (Benadryl) 25 mg PACU ORDER PRN IV .PRURITUS; Start 10/07/18 at 21:30 Atorvastatin Calcium (Lipitor) 40 mg HS PO Last administered on 10/15/18 21:37; Admin Dose 40 MG; Start 10/08/18 at 21:00 Furosemide (Lasix) 40 mg BID DIURETICS PO Last administered on 10/16/18 06:59; Admin Dose 40 MG; Start 10/08/18 at 18:00 Diagnostic Test (Pha) (Accu-Chek) 1 ea 02 XX Last administered on 10/11/18 02:57; Admin Dose 1 EA; Start 10/10/18 at 02:00 Insulin Aspart (Novolog Insulin Pen) NOVOLOG *MODERATE* ALGORITHM WITH MEALS BEDTIME SC Last administered on 10/16/18 12:00; Admin Dose 2 UNIT; Start 10/09/18 at 11:30 Glucose (Glutose) 15 gm Q15M PRN PO DECREASED GLUCOSE; Start 10/09/18 at 12:00 Glucose (Glutose) 22.5 gm Q15M PRN PO DECREASED GLUCOSE; Start 10/09/18 at 12:00 Dextrose (D50w Syringe) 25 ml Q15M PRN IV DECREASED GLUCOSE; Start 10/09/18 at 12:00 Dextrose (D50w Syringe) 50 ml Q15M PRN IV DECREASED GLUCOSE; Start 10/09/18 at 12:00 Glucagon (Glucagen) 1 mg Q15M PRN IM DECREASED GLUCOSE; Start 10/09/18 at 12:00 Glucose (Glutose) 15 gm Q15M PRN BUCCAL DECREASED GLUCOSE; Start 10/09/18 at 12:00 Diagnostic Test (Pha) (Accu-Chek) 1 ea AC MEALS AND BEDTIME XX Last administered on 10/15/18at 20:21; Admin Dose 1 EA; Start 10/09/18 at 11:00 Insulin Glargine (Lantus) 35 units DAILY@0830 SC Last administered on 10/16/18 08:45; Admin Dose 35 UNITS; Start 10/10/18 at 09:00 Insulin Aspart (Novolog Insulin Pen) 8 unit WITH MEALS SC Last administered on 10/16/18 12:00; Admin Dose 8 UNIT; Start 10/10/18 at 11:30 Heparin Sodium (Porcine) (Heparin (1000 Units/ml)) 500 unit WITH DIALYSIS HE Last administered on 10/15/18at 16:15; Admin Dose 500 UNIT; Start 10/11/18 at 10:30 Apixaban (Eliquis) 5 mg BID PO Last administered on 10/16/18 07:38; Admin Dose 5 MG; Start 10/11/18 at 21:00 Aspirin (Aspirin) 81 mg DAILY PO Last administered on 10/16/18 07:38; Admin Dose 81 MG; Start 10/13/18 at 09:00 Albumin Human 100 ml @ 100 mls/hr DURING DIALYSIS PRN IV BLOOD PRESSURE SUPPORT Last administered on 10/13/18 11:32; Admin Dose 100 MLS/HR; Start 10/13/18 at 11:30 Magnesium Hydroxide (Milk Of Mag) 30 ml DAILY PRN PO CONSTIPATION; Start 10/16/18 at 06:30 Paroxetine HCl (Paxil Cr) 25 mg DAILY PO Last administered on 10/16/18at 11:43; Admin Dose 25 MG; Start 10/16/18 at 11:00 LORI VINES October 16, 2018 17:37
[2018-10-16] MEDS: ATORVASTATIN 40 MG TAB PO SCH (20:19)
[2018-10-16] MEDS: OXYCODONE/ACETAMINOPHEN (5/325) TAB PO PRN (23:59)
[2018-10-17] VITALS (25 sets, daily range): BP systolic 93–147; BP diastolic 58–75; PULSE 62–99; RESP 18–19
[2018-10-17] MEDS: ACCU-CHEK XX SCH ×5 (02:00→21:00)
[2018-10-17] MEDS: FUROSEMIDE 40 MG TAB PO SCH ×2 (05:41→17:00)
--- NOTE | 2018-10-17 05:55 | CONS ---
Assessment/Plan Assessment/Plan Hospital Course (Demo Recall) Afib/flutter: new onset, rates controlled. Now on Eliquis CAD s/p CABG: CABG x4 10/07/18, ÁLVAREZ to LAD, SVG to ramus, SVG to OM1 sequenced to OM2. Doing well. Extubated 10/08, off pressors NSTEMI: Trop peak 1.1 and trended down. S/p cath 09/30/18 with diffuse multivessel CAD. CABG as below Upper GI bleed: due to anastomotic ulcer seen on EGD 09/26. No bleeding since. Black stools but on iron and stool occult negative. Hgb relatively stable. Anemia: due to above. s/p 5 units PRBCs and 2 units intraop. Wenckebach: Mobitz 1. Not on BB. No pauses or high grade block. 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 Now stopped DM ESRD on HD MWF: both fistula and right femoral HD cath nonfunctional. Unable to place right IJ. Now s/p left femoral catheter HTN H/o Billroth Depression: now on meds -Eliquis 5mg BID -ASA 81mg -continue to hold metoprolol as pt has Wenckebach and intermittent bradycardia. Can start if afib with RVR -lipitor 40mg -lasix 40mg PO BID -HD per nephrology Consultation Date/Type/Reason Admit Date/Time September 24, 2018 at 08:08 Initial Consult Date 09/24/18 Type of Consult Cardiology Date/Time of Note DATE: 10/17/18 TIME: 05:53 24 HR Interval Summary Free Text/Dictation No events. Sat in chair yesterday. No complaints Started on paxil Exam/Review of Systems Vital Signs Vitals Vital Signs Date Temp Pulse Resp B/P (MAP) Pulse Ox O2 O2 Flow FiO2 Time Delivery Rate 10/17/18 2.0 04:01 10/17/18 98.0 80 18 133/60 99 04:00 (84) 10/16/18 Nasal 20:20 Cannula 10/13/18 21 18:48 Intake and Output 10/16/18 10/16/18 10/17/18 1515:00 23:00 07:00 IntakeIntake Total 600 ml BalanceBalance 600 ml Exam Constitutional: alert, oriented Psych: no complaints Head: normocephalic, atraumatic Neck: supple; No jvd Respiratory: clear to auscultation; No crackles/rales Cardiovascular: regular rate and rhythm; No edema Gastrointestinal: soft, non-tender; No distended 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: nl mental status, nl speech Labs Result Diagram: 10/17/18 0515 10/16/18 0550 Results 24hrs Laboratory Tests Test 10/16/18 07:38 10/16/18 11:43 10/16/18 17:03 10/16/18 20:17 Bedside Glucose 228 H 166 108 97 Test 10/17/18 05:15 White Blood Count 25.4 H Red Blood Count 2.84 L Hemoglobin 8.0 L Hematocrit 24.7 L Mean Corpuscular 87.0 Volume Mean Corpuscular 28.2 L Hemoglobin Mean Corpuscular 32.4 Hemoglobin Concent Red Cell 16.2 H Distribution Width Platelet Count 471 H Mean Platelet Volume 11.0 H Immature 1.100 H Granulocytes % Neutrophils % 87.1 H Lymphocytes % 4.4 L Monocytes % 5.6 Eosinophils % 1.4 Basophils % 0.4 Nucleated Red Blood 0.0 Cells % Immature 0.270 H Granulocytes # Neutrophils # 22.2 H Lymphocytes # 1.1 Monocytes # 1.4 H Eosinophils # 0.4 Basophils # 0.1 Nucleated Red Blood 0.0 Cells # Medications Medications Current Medications Miscellaneous Information (* Miscellaneous Pharmacy Order) Treatment of Hypoglycemia: 1.BG 51... Per protocol XX ; Start 10/07/18 at 21:00 Oxycodone/ Acetaminophen (Percocet (5/ 325)) 1 tab Q3H PRN PO PAIN LEVEL 1-5 Last administered on 10/12/18at 16:54; Admin Dose 1 TAB; Start 10/07/18 at 21:00 Oxycodone/ Acetaminophen (Percocet (5/ 325)) 2 tab Q3H PRN PO PAIN LEVEL 6-10 Last administered on 10/16/18at 23:59; Admin Dose 2 TAB; Start 10/07/18 at 21:00 Ondansetron HCl (Zofran Inj) 4 mg Q6H PRN IV NAUSEA AND/OR VOMITING Last administered on 10/09/18at 13:52; Admin Dose 4 MG; Start 10/07/18 at 21:00 Famotidine (Pepcid) 20 mg BID PO Last administered on 10/16/18 20:19; Admin Dose 20 MG; Start 10/08/18 at 21:00 Acetaminophen (Tylenol Tab) 650 mg Q3H PRN PO ELEVATED TEMPERATURE Last administered on 10/16/18 20:19; Admin Dose 650 MG; Start 10/07/18 at 21:00 Diphenhydramine HCl (Benadryl) 25 mg PACU ORDER PRN IV .PRURITUS; Start 10/07/18 at 21:30 Atorvastatin Calcium (Lipitor) 40 mg HS PO Last administered on 10/16/18 20:19; Admin Dose 40 MG; Start 10/08/18 at 21:00 Furosemide (Lasix) 40 mg BID DIURETICS PO Last administered on 10/17/18 05:41; Admin Dose 40 MG; Start 10/08/18 at 18:00 Diagnostic Test (Pha) (Accu-Chek) 1 ea 02 XX Last administered on 10/11/18 02:57; Admin Dose 1 EA; Start 10/10/18 at 02:00 Insulin Aspart (Novolog Insulin Pen) NOVOLOG *MODERATE* ALGORITHM WITH MEALS BEDTIME SC Last administered on 10/16/18 12:00; Admin Dose 2 UNIT; Start 10/09/18 at 11:30 Glucose (Glutose) 15 gm Q15M PRN PO DECREASED GLUCOSE; Start 10/09/18 at 12:00 Glucose (Glutose) 22.5 gm Q15M PRN PO DECREASED GLUCOSE; Start 10/09/18 at 12:00 Dextrose (D50w Syringe) 25 ml Q15M PRN IV DECREASED GLUCOSE; Start 10/09/18 at 12:00 Dextrose (D50w Syringe) 50 ml Q15M PRN IV DECREASED GLUCOSE; Start 10/09/18 at 12:00 Glucagon (Glucagen) 1 mg Q15M PRN IM DECREASED GLUCOSE; Start 10/09/18 at 12:00 Glucose (Glutose) 15 gm Q15M PRN BUCCAL DECREASED GLUCOSE; Start 10/09/18 at 12:00 Diagnostic Test (Pha) (Accu-Chek) 1 ea AC MEALS AND BEDTIME XX Last administered on 10/16/18 20:27; Admin Dose 1 EA; Start 10/09/18 at 11:00 Insulin Glargine (Lantus) 35 units DAILY@0830 SC Last administered on 10/16/18 08:45; Admin Dose 35 UNITS; Start 10/10/18 at 09:00 Insulin Aspart (Novolog Insulin Pen) 8 unit WITH MEALS SC Last administered on 10/16/18 17:56; Admin Dose 8 UNIT; Start 10/10/18 at 11:30 Heparin Sodium (Porcine) (Heparin (1000 Units/ml)) 500 unit WITH DIALYSIS HE Last administered on 10/15/18 16:15; Admin Dose 500 UNIT; Start 10/11/18 at 10:30 Apixaban (Eliquis) 5 mg BID PO Last administered on 10/16/18 20:19; Admin Dose 5 MG; Start 10/11/18 at 21:00 Aspirin (Aspirin) 81 mg DAILY PO Last administered on 10/16/18 07:38; Admin Dose 81 MG; Start 10/13/18 at 09:00 Albumin Human 100 ml @ 100 mls/hr DURING DIALYSIS PRN IV BLOOD PRESSURE SUPPORT Last administered on 10/13/18 11:32; Admin Dose 100 MLS/HR; Start 10/13/18 at 11:30 Magnesium Hydroxide (Milk Of Mag) 30 ml DAILY PRN PO CONSTIPATION; Start 10/16/18 at 06:30 Paroxetine HCl (Paxil Cr) 25 mg DAILY PO Last administered on 10/16/18 11:43; Admin Dose 25 MG; Start 10/16/18 at 11:00 LAVON SEE October 17, 2018 05:55
[2018-10-17] MEDS: PAROXETINE (CR) 12.5 MG TAB PO SCH (07:35)
[2018-10-17] MEDS: FAMOTIDINE 20 MG TAB PO SCH ×2 (07:35→20:43)
[2018-10-17] MEDS: ASPIRIN 81 MG TAB PO SCH (07:35)
[2018-10-17] MEDS: APIXABAN 5 MG TABLET PO SCH ×2 (07:35→20:43)
[2018-10-17] MEDS: INSULIN ASPART [NOVOLOG] 3 ML PEN SC SCH ×7 (07:35→20:43)
[2018-10-17] MEDS: BALSAM PERU/CASTOR OIL 60 GM TUBE TOP SCH (07:36)
[2018-10-17] MEDS: INSULIN GLARGINE [LANTus] (100 UNITS/ML) SYG SC SCH (07:40)
--- NOTE | 2018-10-17 08:24 | CONS ---
Assessment/Plan Assessment/Plan Assessment/Plan (Daily) 1. acute Hyperkalemia due to GI bleeding- resolved 2.Acute fluid overload with Uremia BUN 111 on admission 3. acute GI bleeding causing acute blood loss anemia- S/p Status post EGD/colonoscopy 09/27/19 -Anastomosis ulcer -Normal colonoscopy 4. Severe Anemia with Hb 5.8 on admission s/p 5 U PRBC transfusion for GI bleeding during this admission 5. H/O HTN 6. H/O peripherla vascular disease 7. ESRD on HD -follow up at [facility] for scheduled HD on MWF 8. acute NSTEMI s/p LHC on 09/30/18 that showed 3 V CAD- s/p CABG on 10/07/18 Plan: s/p CABG on 10/07/18-s/p left groin Madi, - HD ordered for today, will continue HD on MWF pt extensive IVC thrombosis, IR said they can not do , D/w Dr. Velasco - plan is to have Angiogram of Bilateral LE on 10/21/18 and subsequent Attempt to convert Madi to permacath if possible d/w family about very poor vascular access Lasix 40mg pO BID will follow up Consultation Date/Type/Reason Admit Date/Time September 24, 2018 at 08:08 Initial Consult Date 09/24/18 Type of Consult NEPHROLOGY Date/Time of Note DATE: 10/17/18 TIME: 08:24 24 HR Interval Summary Free Text/Dictation plan for HD today Exam/Review of Systems Exam Vitals Vital Signs Date Temp Pulse Resp B/P (MAP) Pulse Ox O2 O2 Flow FiO2 Time Delivery Rate 10/17/18 99.1 80 18 147/70 99 Nasal 3.0 07:40 (95) Cannula 10/13/18 21 18:48 Intake and Output 10/16/18 10/16/18 10/17/18 1515:00 23:00 07:00 IntakeIntake Total 600 ml 250 ml OutputOutput Total 50 ml BalanceBalance 600 ml 200 ml Exam Constitutional: arousable, sleepy Neck: supple, no JVD, no LAD Respiratory: crackles/rales, diminished breath sounds Cardiovascular: regular rate and rhythm, nl pulses Gastrointestinal: soft, non-tender Musculoskeletal: swelling Extremities: normal pulses 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: awake, alert, non focal Results Result Diagram: 10/17/18 0515 10/17/18 0515 Results 24hrs Laboratory Tests Test 10/16/18 11:43 10/16/18 17:03 10/16/18 20:17 10/17/18 05:15 Bedside Glucose 166 108 97 White Blood Count 25.4 H Red Blood Count 2.84 L Hemoglobin 8.0 L Hematocrit 24.7 L Mean Corpuscular 87.0 Volume Mean Corpuscular 28.2 L Hemoglobin Mean Corpuscular 32.4 Hemoglobin Concent Red Cell 16.2 H Distribution Width Platelet Count 471 H Mean Platelet Volume 11.0 H Immature 1.100 H Granulocytes % Neutrophils % 87.1 H Lymphocytes % 4.4 L Monocytes % 5.6 Eosinophils % 1.4 Basophils % 0.4 Nucleated Red Blood 0.0 Cells % Immature 0.270 H Granulocytes # Neutrophils # 22.2 H Lymphocytes # 1.1 Monocytes # 1.4 H Eosinophils # 0.4 Basophils # 0.1 Nucleated Red Blood 0.0 Cells # Sodium Level 134 L Potassium Level 5.3 H Chloride Level 98 Carbon Dioxide Level 19 L Anion Gap 17 H Blood Urea Nitrogen 100 H Creatinine 10.03 H Est Glomerular 5 L Filtrat Rate mL/min Glucose Level 100 # Calcium Level 8.3 L Test 10/17/18 07:35 Bedside Glucose 109 Medications Medication Current Medications Miscellaneous Information (* Miscellaneous Pharmacy Order) Treatment of Hypoglycemia: 1.BG 51... Per protocol XX ; Start 10/07/18 at 21:00 Oxycodone/ Acetaminophen (Percocet (5/ 325)) 1 tab Q3H PRN PO PAIN LEVEL 1-5 Last administered on 10/12/18at 16:54; Admin Dose 1 TAB; Start 10/07/18 at 21:00 Oxycodone/ Acetaminophen (Percocet (5/ 325)) 2 tab Q3H PRN PO PAIN LEVEL 6-10 Last administered on 10/16/18at 23:59; Admin Dose 2 TAB; Start 10/07/18 at 21:00 Ondansetron HCl (Zofran Inj) 4 mg Q6H PRN IV NAUSEA AND/OR VOMITING Last administered on 10/09/18at 13:52; Admin Dose 4 MG; Start 10/07/18 at 21:00 Famotidine (Pepcid) 20 mg BID PO Last administered on 10/17/18 07:35; Admin Dose 20 MG; Start 10/08/18 at 21:00 Acetaminophen (Tylenol Tab) 650 mg Q3H PRN PO ELEVATED TEMPERATURE Last administered on 10/16/18 20:19; Admin Dose 650 MG; Start 10/07/18 at 21:00 Diphenhydramine HCl (Benadryl) 25 mg PACU ORDER PRN IV .PRURITUS; Start 10/07/18 at 21:30 Atorvastatin Calcium (Lipitor) 40 mg HS PO Last administered on 10/16/18 20:19; Admin Dose 40 MG; Start 10/08/18 at 21:00 Furosemide (Lasix) 40 mg BID DIURETICS PO Last administered on 10/17/18 05:41; Admin Dose 40 MG; Start 10/08/18 at 18:00 Diagnostic Test (Pha) (Accu-Chek) 1 ea 02 XX Last administered on 10/11/18 02:57; Admin Dose 1 EA; Start 10/10/18 at 02:00 Insulin Aspart (Novolog Insulin Pen) NOVOLOG *MODERATE* ALGORITHM WITH MEALS BEDTIME SC Last administered on 10/16/18 12:00; Admin Dose 2 UNIT; Start 10/09/18 at 11:30 Glucose (Glutose) 15 gm Q15M PRN PO DECREASED GLUCOSE; Start 10/09/18 at 12:00 Glucose (Glutose) 22.5 gm Q15M PRN PO DECREASED GLUCOSE; Start 10/09/18 at 12:00 Dextrose (D50w Syringe) 25 ml Q15M PRN IV DECREASED GLUCOSE; Start 10/09/18 at 12:00 Dextrose (D50w Syringe) 50 ml Q15M PRN IV DECREASED GLUCOSE; Start 10/09/18 at 12:00 Glucagon (Glucagen) 1 mg Q15M PRN IM DECREASED GLUCOSE; Start 10/09/18 at 12:00 Glucose (Glutose) 15 gm Q15M PRN BUCCAL DECREASED GLUCOSE; Start 10/09/18 at 12:00 Diagnostic Test (Pha) (Accu-Chek) 1 ea AC MEALS AND BEDTIME XX Last administered on 10/16/18 20:27; Admin Dose 1 EA; Start 10/09/18 at 11:00 Insulin Glargine (Lantus) 35 units DAILY@0830 SC Last administered on 10/17/18 07:40; Admin Dose 35 UNITS; Start 10/10/18 at 09:00 Insulin Aspart (Novolog Insulin Pen) 8 unit WITH MEALS SC Last administered on 10/17/18 07:40; Admin Dose 8 UNIT; Start 10/10/18 at 11:30 Heparin Sodium (Porcine) (Heparin (1000 Units/ml)) 500 unit WITH DIALYSIS HE Last administered on 10/15/18 16:15; Admin Dose 500 UNIT; Start 10/11/18 at 10:30 Apixaban (Eliquis) 5 mg BID PO Last administered on 10/17/18 07:35; Admin Dose 5 MG; Start 10/11/18 at 21:00 Aspirin (Aspirin) 81 mg DAILY PO Last administered on 10/17/18 07:35; Admin Dose 81 MG; Start 10/13/18 at 09:00 Albumin Human 100 ml @ 100 mls/hr DURING DIALYSIS PRN IV BLOOD PRESSURE SUPPORT Last administered on 10/13/18 11:32; Admin Dose 100 MLS/HR; Start 10/13/18 at 11:30 Magnesium Hydroxide (Milk Of Mag) 30 ml DAILY PRN PO CONSTIPATION; Start 10/16/18 at 06:30 Paroxetine HCl (Paxil Cr) 25 mg DAILY PO Last administered on 10/17/18 07:35; Admin Dose 25 MG; Start 10/16/18 at 11:00 RAQUEL MCDOWELL MD October 17, 2018 08:24
[2018-10-17] MEDS ORDERED: HEPARIN 1000 UNITS/ML 10 ML INJ HE ONE (09:30)
[2018-10-17] MEDS ORDERED: ALTEPLASE (CATHFLO) 2 MG INJ CATHETER ONE (13:00)
[2018-10-17] MEDS: ALBUMIN HUMAN 25% 100 ML IV PRN (14:22)
--- NOTE | 2018-10-17 15:29 | PN ---
Date/Time of Note Date/Time of Note DATE: 10/17/18 TIME: 15:27 Assessment/Plan VTE Prophylaxis Risk score (from Nsg)>0 risk: 11 Pharmacological prophylaxis: NA/contraindicated Pharm contraindication: renal impairment Lines/Catheters IV Catheter Type (from Nrsg): Madi Urinary Cath still in place: No Assessment/Plan Hospital Course 67 yo with numerous comorbidities including dyslipidemia, IDDM, ESRD on HD and severe PVD who is also anticoagulated on Eliquis/Plavix,here with worsening malaise, found to have severe anemia/positive stool OB... also had NSTEMI #NSTEMI/Multivessel coronary artery disease - s/p LHC 09/30 - s/p CABG 10/07 - Cautiously resume beta blockers. - Anticoag, antiplatelet per CT surgery - Continue statin. #Severe acute symptomatic blood loss anemia -Improved with multiple transfusion. 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 -Wound care #Obesity with BMI 36.3 -Weight reduction advised. #Anemia of ESRD -on Epogen with hemodialysis #Debility secondary to comorbidities -Continue PT -ARU eval #Depression -Started Paxil DVT prophylaxis: SCDs PUD prophylaxis: Protonix DC planning: Plan is for angiogram with vascular on 10/21, continue PT Result Diagram: 10/17/18 0515 10/17/18 0515 Results 24hrs Laboratory Tests Test 10/16/18 17:03 10/16/18 20:17 10/17/18 05:15 10/17/18 07:35 Bedside Glucose 108 97 109 White Blood Count 25.4 H Red Blood Count 2.84 L Hemoglobin 8.0 L Hematocrit 24.7 L Mean Corpuscular 87.0 Volume Mean Corpuscular 28.2 L Hemoglobin Mean Corpuscular 32.4 Hemoglobin Concent Red Cell 16.2 H Distribution Width Platelet Count 471 H Mean Platelet Volume 11.0 H Immature 1.100 H Granulocytes % Neutrophils % 87.1 H Lymphocytes % 4.4 L Monocytes % 5.6 Eosinophils % 1.4 Basophils % 0.4 Nucleated Red Blood 0.0 Cells % Immature 0.270 H Granulocytes # Neutrophils # 22.2 H Lymphocytes # 1.1 Monocytes # 1.4 H Eosinophils # 0.4 Basophils # 0.1 Nucleated Red Blood 0.0 Cells # Sodium Level 134 L Potassium Level 5.3 H Chloride Level 98 Carbon Dioxide Level 19 L Anion Gap 17 H Blood Urea Nitrogen 100 H Creatinine 10.03 H Est Glomerular 5 L Filtrat Rate mL/min Glucose Level 100 # Calcium Level 8.3 L Test 10/17/18 11:51 Bedside Glucose 192 Subjective 24 Hr Interval Summary Constitutional: no complaints Exam/Review of Systems Exam Vitals Vital Signs Date Temp Pulse Resp B/P (MAP) Pulse Ox O2 O2 Flow FiO2 Time Delivery Rate 10/17/18 98.4 80 19 127/66 97 Nasal 3.0 15:15 (86) Cannula 10/13/18 21 18:48 Intake and Output 10/16/18 10/16/18 10/17/18 1515:00 23:00 07:00 IntakeIntake Total 600 ml 250 ml OutputOutput Total 50 ml BalanceBalance 600 ml 200 ml Constitutional: alert Respiratory: clear to auscultation Cardiovascular: regular rate and rhythm Gastrointestinal: soft; No distended Musculoskeletal: nl extremities to inspection Results Results 24hrs Laboratory Tests Test 10/16/18 17:03 10/16/18 20:17 10/17/18 05:15 10/17/18 07:35 Bedside Glucose 108 97 109 White Blood Count 25.4 H Red Blood Count 2.84 L Hemoglobin 8.0 L Hematocrit 24.7 L Mean Corpuscular 87.0 Volume Mean Corpuscular 28.2 L Hemoglobin Mean Corpuscular 32.4 Hemoglobin Concent Red Cell 16.2 H Distribution Width Platelet Count 471 H Mean Platelet Volume 11.0 H Immature 1.100 H Granulocytes % Neutrophils % 87.1 H Lymphocytes % 4.4 L Monocytes % 5.6 Eosinophils % 1.4 Basophils % 0.4 Nucleated Red Blood 0.0 Cells % Immature 0.270 H Granulocytes # Neutrophils # 22.2 H Lymphocytes # 1.1 Monocytes # 1.4 H Eosinophils # 0.4 Basophils # 0.1 Nucleated Red Blood 0.0 Cells # Sodium Level 134 L Potassium Level 5.3 H Chloride Level 98 Carbon Dioxide Level 19 L Anion Gap 17 H Blood Urea Nitrogen 100 H Creatinine 10.03 H Est Glomerular 5 L Filtrat Rate mL/min Glucose Level 100 # Calcium Level 8.3 L Test 10/17/18 11:51 Bedside Glucose 192 Medications Medication Current Medications Miscellaneous Information (* Miscellaneous Pharmacy Order) Treatment of Hypoglycemia: 1.BG 51... Per protocol XX ; Start 10/07/18 at 21:00 Oxycodone/ Acetaminophen (Percocet (5/ 325)) 1 tab Q3H PRN PO PAIN LEVEL 1-5 Last administered on 10/12/18at 16:54; Admin Dose 1 TAB; Start 10/07/18 at 21:00 Oxycodone/ Acetaminophen (Percocet (5/ 325)) 2 tab Q3H PRN PO PAIN LEVEL 6-10 Last administered on 10/16/18at 23:59; Admin Dose 2 TAB; Start 10/07/18 at 21:00 Ondansetron HCl (Zofran Inj) 4 mg Q6H PRN IV NAUSEA AND/OR VOMITING Last administered on 10/09/18at 13:52; Admin Dose 4 MG; Start 10/07/18 at 21:00 Famotidine (Pepcid) 20 mg BID PO Last administered on 10/17/18at 07:35; Admin Dose 20 MG; Start 10/08/18 at 21:00 Acetaminophen (Tylenol Tab) 650 mg Q3H PRN PO ELEVATED TEMPERATURE Last administered on 10/16/18at 20:19; Admin Dose 650 MG; Start 10/07/18 at 21:00 Diphenhydramine HCl (Benadryl) 25 mg PACU ORDER PRN IV .PRURITUS; Start 10/07/18 at 21:30 Atorvastatin Calcium (Lipitor) 40 mg HS PO Last administered on 10/16/18at 20:19; Admin Dose 40 MG; Start 10/08/18 at 21:00 Furosemide (Lasix) 40 mg BID DIURETICS PO Last administered on 10/17/18 05:41; Admin Dose 40 MG; Start 10/08/18 at 18:00 Diagnostic Test (Pha) (Accu-Chek) 1 ea 02 XX Last administered on 10/11/18 02:57; Admin Dose 1 EA; Start 10/10/18 at 02:00 Insulin Aspart (Novolog Insulin Pen) NOVOLOG *MODERATE* ALGORITHM WITH MEALS BEDTIME SC Last administered on 10/17/18 11:55; Admin Dose 4 UNIT; Start 10/09/18 at 11:30 Glucose (Glutose) 15 gm Q15M PRN PO DECREASED GLUCOSE; Start 10/09/18 at 12:00 Glucose (Glutose) 22.5 gm Q15M PRN PO DECREASED GLUCOSE; Start 10/09/18 at 12:00 Dextrose (D50w Syringe) 25 ml Q15M PRN IV DECREASED GLUCOSE; Start 10/09/18 at 12:00 Dextrose (D50w Syringe) 50 ml Q15M PRN IV DECREASED GLUCOSE; Start 10/09/18 at 12:00 Glucagon (Glucagen) 1 mg Q15M PRN IM DECREASED GLUCOSE; Start 10/09/18 at 12:00 Glucose (Glutose) 15 gm Q15M PRN BUCCAL DECREASED GLUCOSE; Start 10/09/18 at 12:00 Diagnostic Test (Pha) (Accu-Chek) 1 ea AC MEALS AND BEDTIME XX Last administered on 10/16/18 20:27; Admin Dose 1 EA; Start 10/09/18 at 11:00 Insulin Glargine (Lantus) 35 units DAILY@0830 SC Last administered on 10/17/18 07:40; Admin Dose 35 UNITS; Start 10/10/18 at 09:00 Insulin Aspart (Novolog Insulin Pen) 8 unit WITH MEALS SC Last administered on 10/17/18 11:56; Admin Dose 8 UNIT; Start 10/10/18 at 11:30 Apixaban (Eliquis) 5 mg BID PO Last administered on 10/17/18 07:35; Admin Dose 5 MG; Start 10/11/18 at 21:00 Aspirin (Aspirin) 81 mg DAILY PO Last administered on 10/17/18 07:35; Admin Dose 81 MG; Start 10/13/18 at 09:00 Albumin Human 100 ml @ 100 mls/hr DURING DIALYSIS PRN IV BLOOD PRESSURE SUPPORT Last administered on 10/17/18at 14:22; Admin Dose 100 MLS/HR; Start 10/13/18 at 11:30 Magnesium Hydroxide (Milk Of Mag) 30 ml DAILY PRN PO CONSTIPATION; Start 10/16/18 at 06:30 Paroxetine HCl (Paxil Cr) 25 mg DAILY PO Last administered on 10/17/18at 07:35; Admin Dose 25 MG; Start 10/16/18 at 11:00 LORI VINES October 17, 2018 15:29
[2018-10-17] MEDS: ATORVASTATIN 40 MG TAB PO SCH (20:43)
[2018-10-18] VITALS (11 sets, daily range): BP systolic 129–145; BP diastolic 51–72; PULSE 55–80; RESP 18–20
[2018-10-18] MEDS: OXYCODONE/ACETAMINOPHEN (5/325) TAB PO PRN (01:53)
[2018-10-18] MEDS: ACCU-CHEK XX SCH ×5 (01:55→20:54)
[2018-10-18] MEDS: FUROSEMIDE 40 MG TAB PO SCH ×2 (05:44→16:57)
[2018-10-18] MEDS: FAMOTIDINE 20 MG TAB PO SCH ×2 (07:49→20:50)
[2018-10-18] MEDS: PAROXETINE (CR) 12.5 MG TAB PO SCH (07:49)
[2018-10-18] MEDS: ASPIRIN 81 MG TAB PO SCH (07:49)
[2018-10-18] MEDS: APIXABAN 5 MG TABLET PO SCH ×2 (07:49→20:50)
[2018-10-18] MEDS: BALSAM PERU/CASTOR OIL 60 GM TUBE TOP SCH (07:50)
[2018-10-18] MEDS: INSULIN ASPART [NOVOLOG] 3 ML PEN SC SCH ×7 (07:55→20:54)
[2018-10-18] MEDS: INSULIN GLARGINE [LANTus] (100 UNITS/ML) SYG SC SCH (08:54)
--- NOTE | 2018-10-18 10:01 | CONS ---
Assessment/Plan Assessment/Plan Assessment/Plan (Daily) 1. acute Hyperkalemia due to GI bleeding- resolved 2.Acute fluid overload- now resolved 3. acute GI bleeding causing acute blood loss anemia- S/p Status post EGD/colonoscopy 09/27/19 -Anastomosis ulcer -Normal colonoscopy 4. Severe Anemia with Hb 5.8 on admission s/p 5 U PRBC transfusion for GI ble eding during this admission 5. H/O HTN 6. H/O peripherla vascular disease 7. [place]D on HD [place] [facility] [place] 8. Acute NSTEMI s/p LHC on 09/30/18 that showed 3 V CAD- s/p CABG on 10/07/18 Plan: s/p CABG on 10/07/18-s/p left groin Randy, - s/p HD yesterday 900 cc removed,, will continue HD on MWF pt extensive IVC thrombosis, IR said they can not do , D/w Dr. Velasco - plan is to have Angiogram of Bilateral LE on 10/21/18 and subsequent Attempt to convert Randy to permacath if possible d/w family about very poor vascular access Lasix 40mg pO BID will follow up Consultation Date/Type/Reason Admit Date/Time September 24, 2018 at 08:08 Initial Consult Date 09/24/18 Type of Consult NEPHROLOGY Date/Time of Note DATE: 10/18/18 TIME: 10:00 Exam/Review of Systems Exam Vitals Vital Signs Date Temp Pulse Resp B/P (MAP) Pulse Ox O2 O2 Flow FiO2 Time Delivery Rate 10/18/18 66 08:14 10/18/18 2.0 07:59 10/18/18 Nasal 07:16 Cannula 10/18/18 98.6 20 129/66 96 07:10 (87) Intake and Output 10/17/18 10/17/18 10/18/18 1414:59 22:59 06:59 IntakeIntake Total 400 ml 400 ml OutputOutput Total 400 ml 2700 ml BalanceBalance -400 ml -2300 ml 400 ml Exam Constitutional: awake alert, no acute distress, Neck: supple, no JVD, no LAD Respiratory: crackles/rales, diminished breath sounds Cardiovascular: regular rate and rhythm,, no murmur Gastrointestinal: soft, non-tender Musculoskeletal: swelling 2+ pitting edema Extremities: normal pulses, left groin randy catheter in place 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: awake, alert, non focal Results Result Diagram: 10/18/18 0510/18/18 0520 Results 24hrs Laboratory Tests Test 10/17/18 11:51 10/17/18 17:01 10/17/18 20:42 10/18/18 01:54 Bedside Glucose 192 87 112 119 Test 10/18/18 05:20 10/18/18 07:50 White Blood Count 31.5 #H Red Blood Count 2.97 L Hemoglobin 8.6 L Hematocrit 26.4 L Mean Corpuscular 88.9 Volume Mean Corpuscular 29.0 Hemoglobin Mean Corpuscular 32.6 Hemoglobin Concent Red Cell 16.6 H Distribution Width Platelet Count 488 H Mean Platelet Volume 11.0 H Immature 1.300 H Granulocytes % Neutrophils % Segmented 89 H Neutrophils % (Manual) Band Neutrophils % 1 (Manual) Lymphocytes % Lymphocytes % 5 L (Manual) Monocytes % Monocytes % (Manual) 5 Eosinophils % Basophils % Nucleated Red Blood 0.0 Cells % Immature 0.400 H Granulocytes # Neutrophils # Neutrophils # 28.1 H (Manual) Band Neutrophils # 0.3 Lymphocytes (Manual) 1.5 Lymphocytes # Monocytes # Monocytes # (Manual) 1.5 H Eosinophils # Basophils # Nucleated Red Blood Cells # Platelet Estimate NORMAL Polychromasia 3+ Poikilocytosis 3+ Anisocytosis 2+ Macrocytosis 2+ Sodium Level 137 Potassium Level 5.0 Chloride Level 100 Carbon Dioxide Level 18 L Anion Gap 19 H Blood Urea Nitrogen 87 H Creatinine 9.01 H Est Glomerular 6 L Filtrat Rate mL/min Glucose Level 121 Calcium Level 8.6 Bedside Glucose 150 Medications Medication Current Medications Miscellaneous Information (* Miscellaneous Pharmacy Order) Treatment of Hypoglycemia: 1.BG 51... Per protocol XX ; Start 10/07/18 at 21:00 Oxycodone/ Acetaminophen (Percocet (5/ 325)) 1 tab Q3H PRN PO PAIN LEVEL 1-5 Last administered on 10/12/18at 16:54; Admin Dose 1 TAB; Start 10/07/18 at 21:00 Oxycodone/ Acetaminophen (Percocet (5/ 325)) 2 tab Q3H PRN PO PAIN LEVEL 6-10 Last administered on 10/18/18at 01:53; Admin Dose 2 TAB; Start 10/07/18 at 21:00 Ondansetron HCl (Zofran Inj) 4 mg Q6H PRN IV NAUSEA AND/OR VOMITING Last administered on 10/09/18at 13:52; Admin Dose 4 MG; Start 10/07/18 at 21:00 Famotidine (Pepcid) 20 mg BID PO Last administered on 10/18/18 07:49; Admin Dose 20 MG; Start 10/08/18 at 21:00 Acetaminophen (Tylenol Tab) 650 mg Q3H PRN PO ELEVATED TEMPERATURE Last administered on 10/16/18 20:19; Admin Dose 650 MG; Start 10/07/18 at 21:00 Atorvastatin Calcium (Lipitor) 40 mg HS PO Last administered on 10/17/18 20:43; Admin Dose 40 MG; Start 10/08/18 at 21:00 Furosemide (Lasix) 40 mg BID DIURETICS PO Last administered on 10/18/18 05:44; Admin Dose 40 MG; Start 10/08/18 at 18:00 Diagnostic Test (Pha) (Accu-Chek) 1 ea 02 XX Last administered on 10/11/18at 02:57; Admin Dose 1 EA; Start 10/10/18 at 02:00 Insulin Aspart (Novolog Insulin Pen) NOVOLOG *MODERATE* ALGORITHM WITH MEALS BEDTIME SC Last administered on 10/18/18 07:55; Admin Dose 2 UNIT; Start 10/09/18 at 11:30 Glucose (Glutose) 15 gm Q15M PRN PO DECREASED GLUCOSE; Start 10/09/18 at 12:00 Glucose (Glutose) 22.5 gm Q15M PRN PO DECREASED GLUCOSE; Start 10/09/18 at 12:00 Dextrose (D50w Syringe) 25 ml Q15M PRN IV DECREASED GLUCOSE; Start 10/09/18 at 12:00 Dextrose (D50w Syringe) 50 ml Q15M PRN IV DECREASED GLUCOSE; Start 10/09/18 at 12:00 Glucagon (Glucagen) 1 mg Q15M PRN IM DECREASED GLUCOSE; Start 10/09/18 at 12:00 Glucose (Glutose) 15 gm Q15M PRN BUCCAL DECREASED GLUCOSE; Start 10/09/18 at 12:00 Diagnostic Test (Pha) (Accu-Chek) 1 ea AC MEALS AND BEDTIME XX Last administered on 10/16/18 20:27; Admin Dose 1 EA; Start 10/09/18 at 11:00 Insulin Glargine (Lantus) 35 units DAILY@0830 SC Last administered on 10/18/18 08:54; Admin Dose 35 UNITS; Start 10/10/18 at 09:00 Insulin Aspart (Novolog Insulin Pen) 8 unit WITH MEALS SC Last administered on 10/18/18 07:55; Admin Dose 8 UNIT; Start 10/10/18 at 11:30 Apixaban (Eliquis) 5 mg BID PO Last administered on 10/18/18 07:49; Admin Dose 5 MG; Start 10/11/18 at 21:00 Aspirin (Aspirin) 81 mg DAILY PO Last administered on 10/18/18 07:49; Admin Dose 81 MG; Start 10/13/18 at 09:00 Albumin Human 100 ml @ 100 mls/hr DURING DIALYSIS PRN IV BLOOD PRESSURE SUPPORT Last administered on 10/13/18 11:32; Admin Dose 100 MLS/HR; Start 10/13/18 at 11:30 Magnesium Hydroxide (Milk Of Mag) 30 ml DAILY PRN PO CONSTIPATION; Start 10/16/18 at 06:30 Paroxetine HCl (Paxil Cr) 25 mg DAILY PO Last administered on 10/18/18 07:49; Admin Dose 25 MG; Start 10/16/18 at 11:00 RAQUEL MCDOWELL MD October 18, 2018 10:00
--- NOTE | 2018-10-18 10:48 | PN ---
Date/Time of Note Date/Time of Note DATE: 10/18/18 TIME: 10:46 Assessment/Plan VTE Prophylaxis Risk score (from Nsg)>0 risk: 12 Pharmacological prophylaxis: NA/contraindicated Pharm contraindication: low risk/ambulating Lines/Catheters IV Catheter Type (from Nrsg): randy Urinary Cath still in place: No Assessment/Plan Hospital Course 67 yo with numerous comorbidities including dyslipidemia, IDDM, ESRD on HD and severe PVD who is also anticoagulated on Eliquis/Plavix,here with worsening malaise, found to have severe anemia/positive stool OB... also had NSTEMI #NSTEMI/Multivessel coronary artery disease - s/p LHC 09/30 - s/p CABG 10/07 - Cautiously resume beta blockers. - Anticoag, antiplatelet per CT surgery - Continue statin. #Severe acute symptomatic blood loss anemia -Improved with multiple transfusion. 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 -Wound care #Obesity with BMI 36.3 -Weight reduction advised. #Anemia of ESRD -on Epogen with hemodialysis #Debility secondary to comorbidities -Continue PT -ARU eval #Depression -Started Paxil DVT prophylaxis: SCDs PUD prophylaxis: Protonix DC planning: Plan is for angiogram with vascular on 10/21, continue PT Result Diagram: 10/18/18 0520 10/18/18 0520 Results 24hrs Laboratory Tests Test 10/17/18 11:51 10/17/18 17:01 10/17/18 20:42 10/18/18 01:54 Bedside Glucose 192 87 112 119 Test 10/18/18 05:20 10/18/18 07:50 White Blood Count 31.5 #H Red Blood Count 2.97 L Hemoglobin 8.6 L Hematocrit 26.4 L Mean Corpuscular 88.9 Volume Mean Corpuscular 29.0 Hemoglobin Mean Corpuscular 32.6 Hemoglobin Concent Red Cell 16.6 H Distribution Width Platelet Count 488 H Mean Platelet Volume 11.0 H Immature 1.300 H Granulocytes % Neutrophils % Segmented 89 H Neutrophils % (Manual) Band Neutrophils % 1 (Manual) Lymphocytes % Lymphocytes % 5 L (Manual) Monocytes % Monocytes % (Manual) 5 Eosinophils % Basophils % Nucleated Red Blood 0.0 Cells % Immature 0.400 H Granulocytes # Neutrophils # Neutrophils # 28.1 H (Manual) Band Neutrophils # 0.3 Lymphocytes (Manual) 1.5 Lymphocytes # Monocytes # Monocytes # (Manual) 1.5 H Eosinophils # Basophils # Nucleated Red Blood Cells # Platelet Estimate NORMAL Polychromasia 3+ Poikilocytosis 3+ Anisocytosis 2+ Macrocytosis 2+ Sodium Level 137 Potassium Level 5.0 Chloride Level 100 Carbon Dioxide Level 18 L Anion Gap 19 H Blood Urea Nitrogen 87 H Creatinine 9.01 H Est Glomerular 6 L Filtrat Rate mL/min Glucose Level 121 Calcium Level 8.6 Bedside Glucose 150 Subjective 24 Hr Interval Summary Constitutional: no complaints Exam/Review of Systems Exam Vitals Vital Signs Date Temp Pulse Resp B/P (MAP) Pulse Ox O2 O2 Flow FiO2 Time Delivery Rate 10/18/18 66 08:14 10/18/18 2.0 07:59 10/18/18 Nasal 07:16 Cannula 10/18/18 98.6 20 129/66 96 07:10 (87) Intake and Output 10/17/18 10/17/18 10/18/18 1515:00 23:00 07:00 IntakeIntake Total 400 ml 400 ml OutputOutput Total 400 ml 2700 ml BalanceBalance -400 ml -2300 ml 400 ml Constitutional: alert, oriented Respiratory: clear to auscultation Cardiovascular: regular rate and rhythm Gastrointestinal: soft; No distended Musculoskeletal: nl extremities to inspection Results Results 24hrs Laboratory Tests Test 10/17/18 11:51 10/17/18 17:01 10/17/18 20:42 10/18/18 01:54 Bedside Glucose 192 87 112 119 Test 10/18/18 05:20 10/18/18 07:50 White Blood Count 31.5 #H Red Blood Count 2.97 L Hemoglobin 8.6 L Hematocrit 26.4 L Mean Corpuscular 88.9 Volume Mean Corpuscular 29.0 Hemoglobin Mean Corpuscular 32.6 Hemoglobin Concent Red Cell 16.6 H Distribution Width Platelet Count 488 H Mean Platelet Volume 11.0 H Immature 1.300 H Granulocytes % Neutrophils % Segmented 89 H Neutrophils % (Manual) Band Neutrophils % 1 (Manual) Lymphocytes % Lymphocytes % 5 L (Manual) Monocytes % Monocytes % (Manual) 5 Eosinophils % Basophils % Nucleated Red Blood 0.0 Cells % Immature 0.400 H Granulocytes # Neutrophils # Neutrophils # 28.1 H (Manual) Band Neutrophils # 0.3 Lymphocytes (Manual) 1.5 Lymphocytes # Monocytes # Monocytes # (Manual) 1.5 H Eosinophils # Basophils # Nucleated Red Blood Cells # Platelet Estimate NORMAL Polychromasia 3+ Poikilocytosis 3+ Anisocytosis 2+ Macrocytosis 2+ Sodium Level 137 Potassium Level 5.0 Chloride Level 100 Carbon Dioxide Level 18 L Anion Gap 19 H Blood Urea Nitrogen 87 H Creatinine 9.01 H Est Glomerular 6 L Filtrat Rate mL/min Glucose Level 121 Calcium Level 8.6 Bedside Glucose 150 Medications Medication Current Medications Miscellaneous Information (* Miscellaneous Pharmacy Order) Treatment of Hypoglycemia: 1.BG 51... Per protocol XX ; Start 10/07/18 at 21:00 Oxycodone/ Acetaminophen (Percocet (5/ 325)) 1 tab Q3H PRN PO PAIN LEVEL 1-5 Last administered on 10/12/18at 16:54; Admin Dose 1 TAB; Start 10/07/18 at 21:00 Oxycodone/ Acetaminophen (Percocet (5/ 325)) 2 tab Q3H PRN PO PAIN LEVEL 6-10 Last administered on 10/18/18at 01:53; Admin Dose 2 TAB; Start 10/07/18 at 21:00 Ondansetron HCl (Zofran Inj) 4 mg Q6H PRN IV NAUSEA AND/OR VOMITING Last administered on 10/09/18at 13:52; Admin Dose 4 MG; Start 10/07/18 at 21:00 Famotidine (Pepcid) 20 mg BID PO Last administered on 10/18/18at 07:49; Admin Dose 20 MG; Start 10/08/18 at 21:00 Acetaminophen (Tylenol Tab) 650 mg Q3H PRN PO ELEVATED TEMPERATURE Last administered on 10/16/18 20:19; Admin Dose 650 MG; Start 10/07/18 at 21:00 Atorvastatin Calcium (Lipitor) 40 mg HS PO Last administered on 10/17/18 20:43; Admin Dose 40 MG; Start 10/08/18 at 21:00 Furosemide (Lasix) 40 mg BID DIURETICS PO Last administered on 10/18/18 05:44; Admin Dose 40 MG; Start 10/08/18 at 18:00 Diagnostic Test (Pha) (Accu-Chek) 1 ea 02 XX Last administered on 10/11/18 02:57; Admin Dose 1 EA; Start 10/10/18 at 02:00 Insulin Aspart (Novolog Insulin Pen) NOVOLOG *MODERATE* ALGORITHM WITH MEALS BEDTIME SC Last administered on 10/18/18 07:55; Admin Dose 2 UNIT; Start 10/09/18 at 11:30 Glucose (Glutose) 15 gm Q15M PRN PO DECREASED GLUCOSE; Start 10/09/18 at 12:00 Glucose (Glutose) 22.5 gm Q15M PRN PO DECREASED GLUCOSE; Start 10/09/18 at 12:00 Dextrose (D50w Syringe) 25 ml Q15M PRN IV DECREASED GLUCOSE; Start 10/09/18 at 12:00 Dextrose (D50w Syringe) 50 ml Q15M PRN IV DECREASED GLUCOSE; Start 10/09/18 at 12:00 Glucagon (Glucagen) 1 mg Q15M PRN IM DECREASED GLUCOSE; Start 10/09/18 at 12:00 Glucose (Glutose) 15 gm Q15M PRN BUCCAL DECREASED GLUCOSE; Start 10/09/18 at 1 2:00 Diagnostic Test (Pha) (Accu-Chek) 1 ea AC MEALS AND BEDTIME XX Last administered on 10/16/18 20:27; Admin Dose 1 EA; Start 10/09/18 at 11:00 Insulin Glargine (Lantus) 35 units DAILY@0830 SC Last administered on 10/18/18 08:54; Admin Dose 35 UNITS; Start 10/10/18 at 09:00 Insulin Aspart (Novolog Insulin Pen) 8 unit WITH MEALS SC Last administered on 10/18/18 07:55; Admin Dose 8 UNIT; Start 10/10/18 at 11:30 Apixaban (Eliquis) 5 mg BID PO Last administered on 10/18/18 07:49; Admin Dose 5 MG; Start 10/11/18 at 21:00 Aspirin (Aspirin) 81 mg DAILY PO Last administered on 10/18/18 07:49; Admin Dose 81 MG; Start 10/13/18 at 09:00 Albumin Human 100 ml @ 100 mls/hr DURING DIALYSIS PRN IV BLOOD PRESSURE SUPPORT Last administered on 10/13/18at 11:32; Admin Dose 100 MLS/HR; Start 10/13/18 at 11:30 Magnesium Hydroxide (Milk Of Mag) 30 ml DAILY PRN PO CONSTIPATION; Start 10/16/18 at 06:30 Paroxetine HCl (Paxil Cr) 25 mg DAILY PO Last administered on 10/18/18 07:49; Admin Dose 25 MG; Start 10/16/18 at 11:00 LORI VINES October 18, 2018 10:48
[2018-10-18] MEDS: ATORVASTATIN 40 MG TAB PO SCH (20:50)
[2018-10-18] MEDS: ACETAMINOPHEN 325 MG TAB PO PRN (20:50)
[2018-10-19] VITALS (11 sets, daily range): BP systolic 124–158; BP diastolic 60–75; PULSE 56–80; RESP 18–20
[2018-10-19] MEDS: OXYCODONE/ACETAMINOPHEN (5/325) TAB PO PRN ×2 (00:19→03:47)
[2018-10-19] MEDS: ACCU-CHEK XX SCH ×5 (01:51→21:11)
[2018-10-19] MEDS: FUROSEMIDE 40 MG TAB PO SCH ×2 (06:28→17:51)
[2018-10-19] MEDS: INSULIN ASPART [NOVOLOG] 3 ML PEN SC SCH ×7 (08:00→21:00)
[2018-10-19] MEDS: ASPIRIN 81 MG TAB PO SCH (08:59)
[2018-10-19] MEDS: APIXABAN 5 MG TABLET PO SCH ×2 (09:00→21:03)
[2018-10-19] MEDS: FAMOTIDINE 20 MG TAB PO SCH ×2 (09:00→21:03)
[2018-10-19] MEDS: PAROXETINE (CR) 12.5 MG TAB PO SCH (09:00)
[2018-10-19] MEDS: INSULIN GLARGINE [LANTus] (100 UNITS/ML) SYG SC SCH (09:04)
[2018-10-19] MEDS: BALSAM PERU/CASTOR OIL 60 GM TUBE TOP SCH (09:58)
[2018-10-19] MEDS: ACETAMINOPHEN 325 MG TAB PO PRN ×2 (09:59→21:48)
--- NOTE | 2018-10-19 13:58 | CONS ---
Assessment/Plan Assessment/Plan Assessment/Plan (Daily) 1. acute Hyperkalemia due to GI bleeding- resolved 2.Acute fluid overload- now resolved 3. acute GI bleeding causing acute blood loss anemia- S/p Status post EGD/colonoscopy 09/27/19 -Anastomosis ulcer -Normal colonoscopy 4. Severe Anemia with Hb 5.8 on admission s/p 5 U PRBC transfusion for GI ble eding during this admission 5. H/O HTN 6. H/O peripherla vascular disease 7. ESRD on HD -follow up at [facility] for scheduled HD on MWF 8. Acute NSTEMI s/p LHC on 09/30/18 that showed 3 V CAD- s/p CABG on 10/07/18 Plan: s/p CABG on 10/07/18-s/p left groin Madi, - HD ordered for Saturday then, will continue HD on MWF pt extensive IVC thrombosis, IR said they can not do , D/w Dr. Velasco - plan is to have Angiogram of Bilateral LE on 10/21/18 and subsequent Attempt to convert Madi to permacath if possible d/w family about very poor vascular access change lasix to 40mg Po daily will follow up Consultation Date/Type/Reason Admit Date/Time September 24, 2018 at 08:08 Initial Consult Date 09/24/18 Type of Consult NEPHROLOGY Date/Time of Note DATE: 10/19/18 TIME: 13:58 24 HR Interval Summary Free Text/Dictation no acute events overnight, Plan for HD tomorrow, BP stable, afebrile Exam/Review of Systems Exam Vitals Vital Signs Date Temp Pulse Resp B/P (MAP) Pulse Ox O2 O2 Flow FiO2 Time Delivery Rate 10/19/18 77 12:11 10/19/18 97.6 18 134/68 96 11:08 (90) 10/19/18 Nasal 2.0 07:51 Cannula Intake and Output 10/18/18 10/18/18 10/19/18 1515:00 23:00 07:00 IntakeIntake Total 550 ml 300 ml BalanceBalance 550 ml 300 ml Exam Constitutional: alert, awake no acute distress Neck: supple, no JVD, no LAD Respiratory: crackles/rales, diminished breath sounds Cardiovascular: regular rate and rhythm, nl pulses Gastrointestinal: soft, non-tender Musculoskeletal: swelling Extremities: normal pulses 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: awake, alert, non focal Results Result Diagram: 10/19/18 0434 10/19/18 0434 Results 24hrs Laboratory Tests Test 10/18/18 16:57 10/18/18 20:54 10/19/18 04:34 10/19/18 08:56 Bedside Glucose 88 112 125 White Blood Count 25.7 H Red Blood Count 2.73 L Hemoglobin 7.9 L Hematocrit 23.8 L Mean Corpuscular 87.2 Volume Mean Corpuscular 28.9 L Hemoglobin Mean Corpuscular 33.2 Hemoglobin Concent Red Cell 16.6 H Distribution Width Platelet Count 476 H Mean Platelet Volume 10.8 H Immature 1.300 H Granulocytes % Neutrophils % 88.7 H Lymphocytes % 3.8 L Monocytes % 5.0 Eosinophils % 0.9 Basophils % 0.3 Nucleated Red Blood 0.0 Cells % Immature 0.340 H Granulocytes # Neutrophils # 22.7 H Lymphocytes # 1.0 Monocytes # 1.3 H Eosinophils # 0.2 Basophils # 0.1 Nucleated Red Blood 0.0 Cells # Sodium Level 132 L Potassium Level 4.9 Chloride Level 97 Carbon Dioxide Level 17 L Anion Gap 18 H Blood Urea Nitrogen 106 H Creatinine 9.92 H Est Glomerular 5 L Filtrat Rate mL/min Glucose Level 131 Calcium Level 8.2 L Test 10/19/18 13:32 Bedside Glucose 166 Medications Medication Current Medications Miscellaneous Information (* Miscellaneous Pharmacy Order) Treatment of Hypogl ycemia: 1.BG 51... Per protocol XX ; Start 10/07/18 at 21:00 Oxycodone/ Acetaminophen (Percocet (5/ 325)) 1 tab Q3H PRN PO PAIN LEVEL 1-5 Last administered on 10/19/18at 00:19; Admin Dose 1 TAB; Start 10/07/18 at 21:00 Oxycodone/ Acetaminophen (Percocet (5/ 325)) 2 tab Q3H PRN PO PAIN LEVEL 6-10 Last administered on 10/19/18at 03:47; Admin Dose 2 TAB; Start 10/07/18 at 21:00 Ondansetron HCl (Zofran Inj) 4 mg Q6H PRN IV NAUSEA AND/OR VOMITING Last administered on 10/09/18at 13:52; Admin Dose 4 MG; Start 10/07/18 at 21:00 Famotidine (Pepcid) 20 mg BID PO Last administered on 10/19/18 09:00; Admin Dose 20 MG; Start 10/08/18 at 21:00 Acetaminophen (Tylenol Tab) 650 mg Q3H PRN PO ELEVATED TEMPERATURE Last administered on 10/19/18 09:59; Admin Dose 650 MG; Start 10/07/18 at 21:00 Atorvastatin Calcium (Lipitor) 40 mg HS PO Last administered on 10/18/18 20:50; Admin Dose 40 MG; Start 10/08/18 at 21:00 Furosemide (Lasix) 40 mg BID DIURETICS PO Last administered on 10/19/18 06:28; Admin Dose 40 MG; Start 10/08/18 at 18:00 Diagnostic Test (Pha) (Accu-Chek) 1 ea 02 XX Last administered on 10/11/18 02:57; Admin Dose 1 EA; Start 10/10/18 at 02:00 Insulin Aspart (Novolog Insulin Pen) NOVOLOG *MODERATE* ALGORITHM WITH MEALS BEDTIME SC Last administered on 10/19/18 13:38; Admin Dose 2 UNIT; Start 10/09/18 at 11:30 Glucose (Glutose) 15 gm Q15M PRN PO DECREASED GLUCOSE; Start 10/09/18 at 12:00 Glucose (Glutose) 22.5 gm Q15M PRN PO DECREASED GLUCOSE; Start 10/09/18 at 12:00 Dextrose (D50w Syringe) 25 ml Q15M PRN IV DECREASED GLUCOSE; Start 10/09/18 at 12:00 Dextrose (D50w Syringe) 50 ml Q15M PRN IV DECREASED GLUCOSE; Start 10/09/18 at 12:00 Glucagon (Glucagen) 1 mg Q15M PRN IM DECREASED GLUCOSE; Start 10/09/18 at 12:00 Glucose (Glutose) 15 gm Q15M PRN BUCCAL DECREASED GLUCOSE; Start 10/09/18 at 12:00 Diagnostic Test (Pha) (Accu-Chek) 1 ea AC MEALS AND BEDTIME XX Last administered on 10/19/18 11:30; Admin Dose 1 EA; Start 10/09/18 at 11:00 Insulin Glargine (Lantus) 35 units DAILY@0830 SC Last administered on 10/19/18 09:04; Admin Dose 35 UNITS; Start 10/10/18 at 09:00 Insulin Aspart (Novolog Insulin Pen) 8 unit WITH MEALS SC Last administered on 10/18/18 17:19; Admin Dose 8 UNIT; Start 10/10/18 at 11:30 Apixaban (Eliquis) 5 mg BID PO Last administered on 10/19/18at 09:00; Admin Dose 5 MG; Start 10/11/18 at 21:00 Aspirin (Aspirin) 81 mg DAILY PO Last administered on 10/19/18at 08:59; Admin Dose 81 MG; Start 10/13/18 at 09:00 Albumin Human 100 ml @ 100 mls/hr DURING DIALYSIS PRN IV BLOOD PRESSURE SUPPORT Last administered on 10/13/18at 11:32; Admin Dose 100 MLS/HR; Start 10/13/18 at 11:30 Magnesium Hydroxide (Milk Of Mag) 30 ml DAILY PRN PO CONSTIPATION; Start 10/16/18 at 06:30 Paroxetine HCl (Paxil Cr) 25 mg DAILY PO Last administered on 10/19/18at 09:00; Admin Dose 25 MG; Start 10/16/18 at 11:00 RAQUEL MCDOWELL MD October 19, 2018 13:58
--- NOTE | 2018-10-19 17:23 | PN ---
Date/Time of Note Date/Time of Note DATE: 10/19/18 TIME: 17:22 Assessment/Plan VTE Prophylaxis Risk score (from Nsg)>0 risk: 6 Pharmacological prophylaxis: NA/contraindicated Pharm contraindication: low risk/ambulating Lines/Catheters IV Catheter Type (from Nrsg): Madi Urinary Cath still in place: No Assessment/Plan Hospital Course 67 yo with numerous comorbidities including dyslipidemia, IDDM, ESRD on HD and severe PVD who is also anticoagulated on Eliquis/Plavix,here with worsening malaise, found to have severe anemia/positive stool OB... also had NSTEMI #NSTEMI/Multivessel coronary artery disease - s/p LHC 09/30 - s/p CABG 10/07 - Cautiously resume beta blockers. - Anticoag, antiplatelet per CT surgery - Continue statin. #Severe acute symptomatic blood loss anemia -Improved with multiple transfusion. 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 -Wound care #Obesity with BMI 36.3 -Weight reduction advised. #Anemia of ESRD -on Epogen with hemodialysis #Debility secondary to comorbidities -Continue PT -ARU eval #Depression -Started Paxil DVT prophylaxis: SCDs PUD prophylaxis: Protonix DC planning: Plan is for angiogram with vascular on 10/21, continue PT Result Diagram: 10/19/18 0434 10/19/18 0434 Results 24hrs Laboratory Tests Test 10/18/18 20:54 10/19/18 04:34 10/19/18 08:56 10/19/18 13:32 Bedside Glucose 112 125 166 White Blood Count 25.7 H Red Blood Count 2.73 L Hemoglobin 7.9 L Hematocrit 23.8 L Mean Corpuscular 87.2 Volume Mean Corpuscular 28.9 L Hemoglobin Mean Corpuscular 33.2 Hemoglobin Concent Red Cell 16.6 H Distribution Width Platelet Count 476 H Mean Platelet Volume 10.8 H Immature 1.300 H Granulocytes % Neutrophils % 88.7 H Lymphocytes % 3.8 L Monocytes % 5.0 Eosinophils % 0.9 Basophils % 0.3 Nucleated Red Blood 0.0 Cells % Immature 0.340 H Granulocytes # Neutrophils # 22.7 H Lymphocytes # 1.0 Monocytes # 1.3 H Eosinophils # 0.2 Basophils # 0.1 Nucleated Red Blood 0.0 Cells # Sodium Level 132 L Potassium Level 4.9 Chloride Level 97 Carbon Dioxide Level 17 L Anion Gap 18 H Blood Urea Nitrogen 106 H Creatinine 9.92 H Est Glomerular 5 L Filtrat Rate mL/min Glucose Level 131 Calcium Level 8.2 L Subjective 24 Hr Interval Summary Constitutional: no complaints Exam/Review of Systems Exam Vitals Vital Signs Date Temp Pulse Resp B/P (MAP) Pulse Ox O2 O2 Flow FiO2 Time Delivery Rate 10/19/18 56 16:18 10/19/18 98.3 19 124/60 97 15:08 (81) 10/19/18 Nasal 2.0 07:51 Cannula Intake and Output 10/18/18 10/18/18 10/19/18 1515:00 23:00 07:00 IntakeIntake Total 550 ml 300 ml BalanceBalance 550 ml 300 ml Constitutional: alert, oriented Respiratory: clear to auscultation Cardiovascular: regular rate and rhythm Gastrointestinal: soft; No distended Musculoskeletal: nl extremities to inspection Results Results 24hrs Laboratory Tests Test 10/18/18 20:54 10/19/18 04:34 10/19/18 08:56 10/19/18 13:32 Bedside Glucose 112 125 166 White Blood Count 25.7 H Red Blood Count 2.73 L Hemoglobin 7.9 L Hematocrit 23.8 L Mean Corpuscular 87.2 Volume Mean Corpuscular 28.9 L Hemoglobin Mean Corpuscular 33.2 Hemoglobin Concent Red Cell 16.6 H Distribution Width Platelet Count 476 H Mean Platelet Volume 10.8 H Immature 1.300 H Granulocytes % Neutrophils % 88.7 H Lymphocytes % 3.8 L Monocytes % 5.0 Eosinophils % 0.9 Basophils % 0.3 Nucleated Red Blood 0.0 Cells % Immature 0.340 H Granulocytes # Neutrophils # 22.7 H Lymphocytes # 1.0 Monocytes # 1.3 H Eosinophils # 0.2 Basophils # 0.1 Nucleated Red Blood 0.0 Cells # Sodium Level 132 L Potassium Level 4.9 Chloride Level 97 Carbon Dioxide Level 17 L Anion Gap 18 H Blood Urea Nitrogen 106 H Creatinine 9.92 H Est Glomerular 5 L Filtrat Rate mL/min Glucose Level 131 Calcium Level 8.2 L Medications Medication Current Medications Miscellaneous Information (* Miscellaneous Pharmacy Order) Treatment of Hypoglycemia: 1.BG 51... Per protocol XX ; Start 10/07/18 at 21:00 Oxycodone/ Acetaminophen (Percocet (5/ 325)) 1 tab Q3H PRN PO PAIN LEVEL 1-5 Last administered on 10/19/18 00:19; Admin Dose 1 TAB; Start 10/07/18 at 21:00 Oxycodone/ Acetaminophen (Percocet (5/ 325)) 2 tab Q3H PRN PO PAIN LEVEL 6-10 Last administered on 10/19/18 03:47; Admin Dose 2 TAB; Start 10/07/18 at 21:00 Ondansetron HCl (Zofran Inj) 4 mg Q6H PRN IV NAUSEA AND/OR VOMITING Last administered on 10/09/18 13:52; Admin Dose 4 MG; Start 10/07/18 at 21:00 Famotidine (Pepcid) 20 mg BID PO Last administered on 10/19/18 09:00; Admin Dose 20 MG; Start 10/08/18 at 21:00 Acetaminophen (Tylenol Tab) 650 mg Q3H PRN PO ELEVATED TEMPERATURE Last administered on 10/19/18 09:59; Admin Dose 650 MG; Start 10/07/18 at 21:00 Atorvastatin Calcium (Lipitor) 40 mg HS PO Last administered on 10/18/18 20:50; Admin Dose 40 MG; Start 10/08/18 at 21:00 Furosemide (Lasix) 40 mg BID DIURETICS PO Last administered on 10/19/18 06:28; Admin Dose 40 MG; Start 10/08/18 at 18:00 Diagnostic Test (Pha) (Accu-Chek) 1 XX Last administered on 5/18/19at 02:57; Admin Dose 1 EA; Start 10/10/18 at 02:00 Insulin Aspart (Novolog Insulin Pen) NOVOLOG *MODERATE* ALGORITHM WITH MEALS BEDTIME SC Last administered on 10/19/18 13:38; Admin Dose 2 UNIT; Start 10/09/18 at 11:30 Glucose (Glutose) 15 gm Q15M PRN PO DECREASED GLUCOSE; Start 10/09/18 at 12:00 Glucose (Glutose) 22.5 gm Q15M PRN PO DECREASED GLUCOSE; Start 10/09/18 at 12:00 Dextrose (D50w Syringe) 25 ml Q15M PRN IV DECREASED GLUCOSE; Start 10/09/18 at 12:00 Dextrose (D50w Syringe) 50 ml Q15M PRN IV DECREASED GLUCOSE; Start 10/09/18 at 12:00 Glucagon (Glucagen) 1 mg Q15M PRN IM DECREASED GLUCOSE; Start 10/09/18 at 12:00 Glucose (Glutose) 15 gm Q15M PRN BUCCAL DECREASED GLUCOSE; Start 10/09/18 at 12:00 Diagnostic Test (Pha) (Accu-Chek) 1 ea AC MEALS AND BEDTIME XX Last administered on 10/19/18 11:30; Admin Dose 1 EA; Start 10/09/18 at 11:00 Insulin Glargine (Lantus) 35 units DAILY@0830 SC Last administered on 10/19/18 09:04; Admin Dose 35 UNITS; Start 10/10/18 at 09:00 Insulin Aspart (Novolog Insulin Pen) 8 unit WITH MEALS SC Last administered on 10/18/18 17:19; Admin Dose 8 UNIT; Start 10/10/18 at 11:30 Apixaban (Eliquis) 5 mg BID PO Last administered on 10/19/18 09:00; Admin Dose 5 MG; Start 10/11/18 at 21:00 Aspirin (Aspirin) 81 mg DAILY PO Last administered on 10/19/18 08:59; Admin Dose 81 MG; Start 10/13/18 at 09:00 Albumin Human 100 ml @ 100 mls/hr DURING DIALYSIS PRN IV BLOOD PRESSURE SUPPORT Last administered on 10/13/18 11:32; Admin Dose 100 MLS/HR; Start 10/13/18 at 11:30 Magnesium Hydroxide (Milk Of Mag) 30 ml DAILY PRN PO CONSTIPATION; Start 10/16/18 at 06:30 Paroxetine HCl (Paxil Cr) 25 mg DAILY PO Last administered on 10/19/18at 09:00; Admin Dose 25 MG; Start 10/16/18 at 11:00 LORI VINES October 19, 2018 17:23
[2018-10-19] MEDS: ATORVASTATIN 40 MG TAB PO SCH (21:04)
[2018-10-20] VITALS (23 sets, daily range): BP systolic 86–148; BP diastolic 20–92; PULSE 56–109; RESP 18–20
[2018-10-20] MEDS: OXYCODONE/ACETAMINOPHEN (5/325) TAB PO PRN (01:38)
[2018-10-20] MEDS: ACCU-CHEK XX SCH ×5 (02:00→21:00)
[2018-10-20] MEDS: INSULIN ASPART [NOVOLOG] 3 ML PEN SC SCH ×7 (08:00→21:00)
[2018-10-20] MEDS: ASPIRIN 81 MG TAB PO SCH (09:00)
[2018-10-20] MEDS: FUROSEMIDE 40 MG TAB PO SCH (09:00)
[2018-10-20] MEDS ORDERED: ALTEPLASE (CATHFLO) 2 MG INJ CATHETER ONE (10:00)
[2018-10-20] MEDS: HEPARIN 1000 UNITS/ML 10 ML INJ HE SCH ×2 (10:37→10:38)
[2018-10-20] MEDS: INSULIN GLARGINE [LANTus] (100 UNITS/ML) SYG SC SCH (10:45)
[2018-10-20] MEDS: ALBUMIN HUMAN 25% 100 ML IV PRN (11:21)
--- NOTE | 2018-10-20 12:09 | CONS ---
Assessment/Plan Assessment/Plan Assessment/Plan (Daily) 1. acute Hyperkalemia due to GI bleeding- resolved 2.Acute fluid overload- now resolved 3. acute GI bleeding causing acute blood loss anemia- S/p Status post EGD/colonoscopy 09/27/19 -Anastomosis ulcer -Normal colonoscopy 4. Severe Anemia with Hb 5.8 on admission s/p 5 U PRBC transfusion for GI ble eding during this admission 5. H/O HTN 6. H/O peripherla vascular disease 7. ESRD on HD -follow up at [facility] for scheduled HD on MWF 8. Acute NSTEMI s/p LHC on 09/30/18 that showed 3 V CAD- s/p CABG on 10/07/18 Plan: s/p CABG on 10/07/18-s/p left groin Madi, - s/p HD today 1.7 L removed, then, will continue HD on MWF pt extensive IVC thrombosis, IR said they can not do , D/w Dr. Velasco - plan is to have Angiogram of Bilateral LE on 10/21/18 and subsequent Attempt to convert Madi to permacath if possible- Eliquis has been stopped for now d/w family about very poor vascular access change lasix to 40mg Po daily will follow up Consultation Date/Type/Reason Admit Date/Time September 24, 2018 at 08:08 Initial Consult Date 09/24/18 Type of Consult NEPHROLOGY Date/Time of Note DATE: 10/20/18 TIME: 12:09 24 HR Interval Summary Free Text/Dictation s/p HD today Only able to remove 1.7 L due to non functioning well catheter, Bp stable, HR in 120s Exam/Review of Systems Exam Vitals Vital Signs Date Temp Pulse Resp B/P (MAP) Pulse Ox O2 O2 Flow FiO2 Time Delivery Rate 10/20/18 87 11:50 10/20/18 18 148/35 100 Nasal 2.0 10:05 (72) Cannula 10/20/18 98.2 07:09 Intake and Output 10/19/18 10/19/18 10/20/18 1515:00 23:00 07:00 IntakeIntake Total 500 ml BalanceBalance 500 ml Exam Constitutional: alert, awake no acute distress Neck: supple, no JVD, no LAD Respiratory: crackles/rales, diminished breath sounds Cardiovascular: regular rate and rhythm, nl pulses, Scar healthy Gastrointestinal: soft, non-tender Musculoskeletal: swelling Extremities: 1+ pitting edema, left groin permacath 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: awake, alert, non focal Results Result Diagram: 10/20/18 0543 10/20/18 0543 Results 24hrs Laboratory Tests Test 10/19/18 13:32 10/19/18 17:46 10/19/18 21:06 10/20/18 05:43 Bedside Glucose 166 145 167 White Blood Count 21.3 H Red Blood Count 2.78 L Hemoglobin 7.8 L Hematocrit 23.9 L Mean Corpuscular 86.0 Volume Mean Corpuscular 28.1 L Hemoglobin Mean Corpuscular 32.6 Hemoglobin Concent Red Cell 16.5 H Distribution Width Platelet Count 539 H Mean Platelet Volume 10.6 H Immature 1.600 H Granulocytes % Neutrophils % 85.2 H Lymphocytes % 5.5 L Monocytes % 5.9 Eosinophils % 1.5 Basophils % 0.3 Nucleated Red Blood 0.0 Cells % Immature 0.340 H Granulocytes # Neutrophils # 18.1 H Lymphocytes # 1.2 Monocytes # 1.3 H Eosinophils # 0.3 Basophils # 0.1 Nucleated Red Blood 0.0 Cells # Sodium Level 133 L Potassium Level 5.3 H Chloride Level 96 L Carbon Dioxide Level 19 L Anion Gap 18 H Blood Urea Nitrogen 121 H Creatinine 11.02 H Est Glomerular 5 L Filtrat Rate mL/min Glucose Level 91 # Calcium Level 8.3 L Test 10/20/18 08:42 Bedside Glucose 82 Medications Medication Current Medications Oxycodone/ Acetaminophen (Percocet (5/ 325)) 1 tab Q3H PRN PO PAIN LEVEL 1-5 Last administered on 10/20/18at 01:38; Admin Dose 1 TAB; Start 10/07/18 at 21:00 Oxycodone/ Acetaminophen (Percocet (5/ 325)) 2 tab Q3H PRN PO PAIN LEVEL 6-10 Last administered on 10/19/18at 03:47; Admin Dose 2 TAB; Start 10/07/18 at 21:00 Ondansetron HCl (Zofran Inj) 4 mg Q6H PRN IV NAUSEA AND/OR VOMITING Last administered on 10/09/18at 13:52; Admin Dose 4 MG; Start 10/07/18 at 21:00 Famotidine (Pepcid) 20 mg BID PO Last administered on 10/19/18 21:03; Admin Dose 20 MG; Start 10/08/18 at 21:00 Acetaminophen (Tylenol Tab) 650 mg Q3H PRN PO ELEVATED TEMPERATURE Last administered on 10/19/18 21:48; Admin Dose 650 MG; Start 10/07/18 at 21:00 Atorvastatin Calcium (Lipitor) 40 mg HS PO Last administered on 10/19/18 21:04; Admin Dose 40 MG; Start 10/08/18 at 21:00 Diagnostic Test (Pha) (Accu-Chek) 1 ea 02 XX Last administered on 10/11/18 02:57; Admin Dose 1 EA; Start 10/10/18 at 02:00 Insulin Aspart (Novolog Insulin Pen) NOVOLOG *MODERATE* ALGORITHM WITH MEALS BEDTIME SC Last administered on 10/19/18 17:59; Admin Dose 2 UNIT; Start 10/09/18 at 11:30 Glucose (Glutose) 15 gm Q15M PRN PO DECREASED GLUCOSE; Start 10/09/18 at 12:00 Glucose (Glutose) 22.5 gm Q15M PRN PO DECREASED GLUCOSE; Start 10/09/18 at 12:00 Dextrose (D50w Syringe) 25 ml Q15M PRN IV DECREASED GLUCOSE; Start 10/09/18 at 12:00 Dextrose (D50w Syringe) 50 ml Q15M PRN IV DECREASED GLUCOSE; Start 10/09/18 at 12:00 Glucagon (Glucagen) 1 mg Q15M PRN IM DECREASED GLUCOSE; Start 10/09/18 at 12:00 Glucose (Glutose) 15 gm Q15M PRN BUCCAL DECREASED GLUCOSE; Start 10/09/18 at 12:00 Diagnostic Test (Pha) (Accu-Chek) 1 ea AC MEALS AND BEDTIME XX Last administered on 10/20/18at 07:00; Admin Dose 1 EA; Start 10/09/18 at 11:00 Insulin Glargine (Lantus) 35 units DAILY@0830 SC Last administered on 10/20/18at 10:45; Admin Dose 35 UNITS; Start 10/10/18 at 09:00 Insulin Aspart (Novolog Insulin Pen) 8 unit WITH MEALS SC Last administered on 10/18/18 17:19; Admin Dose 8 UNIT; Start 10/10/18 at 11:30 Apixaban (Eliquis) 5 mg BID PO Last administered on 10/19/18 21:03; Admin Dose 5 MG; Start 10/11/18 at 21:00 Aspirin (Aspirin) 81 mg DAILY PO Last administered on 10/19/18 08:59; Admin Dose 81 MG; Start 10/13/18 at 09:00 Albumin Human 100 ml @ 100 mls/hr DURING DIALYSIS PRN IV BLOOD PRESSURE SUPPORT Last administered on 10/20/18 11:21; Admin Dose 100 MLS/HR; Start 10/13/18 at 11:30 Magnesium Hydroxide (Milk Of Mag) 30 ml DAILY PRN PO CONSTIPATION; Start 10/16/18 at 06:30 Paroxetine HCl (Paxil Cr) 25 mg DAILY PO Last administered on 10/19/18 09:00; Admin Dose 25 MG; Start 10/16/18 at 11:00 Furosemide (Lasix) 40 mg DAILY PO ; Start 10/20/18 at 09:00 Heparin Sodium (Porcine) (Heparin (1000 Units/ml)) 500 unit WITH DIALYSIS HE Last administered on 10/20/18at 10:37; Admin Dose 500 UNIT; Start 10/20/18 at 10:00 Heparin Sodium (Porcine) (Heparin (1000 Units/ml)) 1,500 unit WITH DIALYSIS HE Last administered on 10/20/18at 10:38; Admin Dose 1,500 UNIT; Start 10/20/18 at 10:00 RAQUEL MCDOWELL MD October 20, 2018 12:09
[2018-10-20] MEDS: PAROXETINE (CR) 12.5 MG TAB PO SCH (14:09)
[2018-10-20] MEDS: FAMOTIDINE 20 MG TAB PO SCH ×2 (14:10→20:54)
[2018-10-20] MEDS: BALSAM PERU/CASTOR OIL 60 GM TUBE TOP SCH (14:12)
--- NOTE | 2018-10-20 17:15 | PN ---
Date/Time of Note Date/Time of Note DATE: 10/20/18 TIME: 17:15 Assessment/Plan VTE Prophylaxis Risk score (from Nsg)>0 risk: 3 SCD applied (from Nsg): Yes Pharmacological prophylaxis: heparin Lines/Catheters IV Catheter Type (from Nrsg): Madi Urinary Cath still in place: No Assessment/Plan Hospital Course 67 yo with numerous comorbidities including dyslipidemia, IDDM, ESRD on HD and severe PVD who is also anticoagulated on Eliquis/Plavix,here with worsening malaise, found to have severe anemia/positive stool OB... also had NSTEMI Abdominal pain: - Evaluate for consptiation with KUB #NSTEMI/Multivessel coronary artery disease - s/p LHC 09/30 - s/p CABG 10/07 - Cautiously resume beta blockers. - Anticoag, antiplatelet per CT surgery - Continue statin. #Severe acute symptomatic blood loss anemia -Improved with multiple transfusion. 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 -Wound care #Obesity with BMI 36.3 -Weight reduction advised. #Anemia of ESRD -on Epogen with hemodialysis #Debility secondary to comorbidities -Continue PT -ARU eval #Depression -Started Paxil DVT prophylaxis: SCDs PUD prophylaxis: Protonix DC planning: Plan is for angiogram with vascular on 10/21, continue PT Result Diagram: 10/20/18 0543 10/20/18 0543 Results 24hrs Laboratory Tests Test 10/19/18 17:46 10/19/18 21:06 10/20/18 05:43 10/20/18 08:42 Bedside Glucose 145 167 82 White Blood Count 21.3 H Red Blood Count 2.78 L Hemoglobin 7.8 L Hematocrit 23.9 L Mean Corpuscular 86.0 Volume Mean Corpuscular 28.1 L Hemoglobin Mean Corpuscular 32.6 Hemoglobin Concent Red Cell 16.5 H Distribution Width Platelet Count 539 H Mean Platelet Volume 10.6 H Immature 1.600 H Granulocytes % Neutrophils % 85.2 H Lymphocytes % 5.5 L Monocytes % 5.9 Eosinophils % 1.5 Basophils % 0.3 Nucleated Red Blood 0.0 Cells % Immature 0.340 H Granulocytes # Neutrophils # 18.1 H Lymphocytes # 1.2 Monocytes # 1.3 H Eosinophils # 0.3 Basophils # 0.1 Nucleated Red Blood 0.0 Cells # Sodium Level 133 L Potassium Level 5.3 H Chloride Level 96 L Carbon Dioxide Level 19 L Anion Gap 18 H Blood Urea Nitrogen 121 H Creatinine 11.02 H Est Glomerular 5 L Filtrat Rate mL/min Glucose Level 91 # Calcium Level 8.3 L Test 10/20/18 12:14 Bedside Glucose 79 Subjective 24 Hr Interval Summary Free Text/Dictation Having abdominal pain and nausea Exam/Review of Systems Exam Vitals Vital Signs Date Temp Pulse Resp B/P (MAP) Pulse Ox O2 O2 Flow FiO2 Time Delivery Rate 10/20/18 109 16:26 10/20/18 98.0 18 131/62 98 Room Air 15:43 (85) 10/20/18 2.0 13:20 Intake and Output 10/19/18 10/19/18 10/20/18 1515:00 23:00 07:00 IntakeIntake Total 500 ml BalanceBalance 500 ml Constitutional: alert, oriented, well developed Psych: no complaints, nl mood/affect Head: normocephalic, atraumatic Eyes: nl conjunctiva, EOMI, nl lids, nl sclera, PERRL ENMT: nl external ears & nose, nl lips & teeth, nl nasal mucosa & septum Neck: supple, non-tender Respiratory: clear to auscultation, normal air movement Cardiovascular: regular rate and rhythm, nl pulses Gastrointestinal: soft, nl liver, spleen, non-tender Musculoskeletal: nl extremities to inspection, nl gait and stance Extremities: normal pulses 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: CUPOLA CHARGER II-XII intact, nl mental status, nl speech, nl strength Skin: nl turgor; No rash or lesions Lymph: nl lymph nodes Results Results 24hrs Laboratory Tests Test 10/19/18 17:46 10/19/18 21:06 10/20/18 05:43 10/20/18 08:42 Bedside Glucose 145 167 82 White Blood Count 21.3 H Red Blood Count 2.78 L Hemoglobin 7.8 L Hematocrit 23.9 L Mean Corpuscular 86.0 Volume Mean Corpuscular 28.1 L Hemoglobin Mean Corpuscular 32.6 Hemoglobin Concent Red Cell 16.5 H Distribution Width Platelet Count 539 H Mean Platelet Volume 10.6 H Immature 1.600 H Granulocytes % Neutrophils % 85.2 H Lymphocytes % 5.5 L Monocytes % 5.9 Eosinophils % 1.5 Basophils % 0.3 Nucleated Red Blood 0.0 Cells % Immature 0.340 H Granulocytes # Neutrophils # 18.1 H Lymphocytes # 1.2 Monocytes # 1.3 H Eosinophils # 0.3 Basophils # 0.1 Nucleated Red Blood 0.0 Cells # Sodium Level 133 L Potassium Level 5.3 H Chloride Level 96 L Carbon Dioxide Level 19 L Anion Gap 18 H Blood Urea Nitrogen 121 H Creatinine 11.02 H Est Glomerular 5 L Filtrat Rate mL/min Glucose Level 91 # Calcium Level 8.3 L Test 10/20/18 12:14 Bedside Glucose 79 Medications Medication Current Medications Oxycodone/ Acetaminophen (Percocet (5/ 325)) 1 tab Q3H PRN PO PAIN LEVEL 1-5 Last administered on 10/20/18 01:38; Admin Dose 1 TAB; Start 10/07/18 at 21:00 Ondansetron HCl (Zofran Inj) 4 mg Q6H PRN IV NAUSEA AND/OR VOMITING Last adm inistered on 10/09/18 13:52; Admin Dose 4 MG; Start 10/07/18 at 21:00 Famotidine (Pepcid) 20 mg BID PO Last administered on 10/20/18 14:10; Admin Dose 20 MG; Start 10/08/18 at 21:00 Acetaminophen (Tylenol Tab) 650 mg Q3H PRN PO ELEVATED TEMPERATURE Last administered on 10/19/18 21:48; Admin Dose 650 MG; Start 10/07/18 at 21:00 Atorvastatin Calcium (Lipitor) 40 mg HS PO Last administered on 10/19/18 21:04; Admin Dose 40 MG; Start 10/08/18 at 21:00 Insulin Aspart (Novolog Insulin Pen) NOVOLOG *MODERATE* ALGORITHM WITH MEALS BEDTIME SC Last administered on 10/19/18 17:59; Admin Dose 2 UNIT; Start 10/09/18 at 11:30 Glucose (Glutose) 15 gm Q15M PRN PO DECREASED GLUCOSE; Start 10/09/18 at 12:00 Glucose (Glutose) 22.5 gm Q15M PRN PO DECREASED GLUCOSE; Start 10/09/18 at 12:00 Dextrose (D50w Syringe) 25 ml Q15M PRN IV DECREASED GLUCOSE; Start 10/09/18 at 12:00 Dextrose (D50w Syringe) 50 ml Q15M PRN IV DECREASED GLUCOSE; Start 10/09/18 at 12:00 Glucagon (Glucagen) 1 mg Q15M PRN IM DECREASED GLUCOSE; Start 10/09/18 at 12:00 Glucose (Glutose) 15 gm Q15M PRN BUCCAL DECREASED GLUCOSE; Start 10/09/18 at 12:00 Diagnostic Test (Pha) (Accu-Chek) 1 ea AC MEALS AND BEDTIME XX Last ad ministered on 10/20/18at 12:23; Admin Dose 1 EA; Start 10/09/18 at 11:00 Insulin Glargine (Lantus) 35 units DAILY@0830 SC Last administered on 10/20/18at 10:45; Admin Dose 35 UNITS; Start 10/10/18 at 09:00 Insulin Aspart (Novolog Insulin Pen) 8 unit WITH MEALS SC Last administered on 10/18/18 17:19; Admin Dose 8 UNIT; Start 10/10/18 at 11:30 Apixaban (Eliquis) 5 mg BID PO Last administered on 10/19/18at 21:03; Admin Dose 5 MG; Start 10/11/18 at 21:00; Status Hold Aspirin (Aspirin) 81 mg DAILY PO Last administered on 10/19/18 08:59; Admin Dose 81 MG; Start 10/13/18 at 09:00 Albumin Human 100 ml @ 100 mls/hr DURING DIALYSIS PRN IV BLOOD PRESSURE SUPPORT Last administered on 10/20/18 11:21; Admin Dose 100 MLS/HR; Start 10/13/18 at 11:30 Magnesium Hydroxide (Milk Of Mag) 30 ml DAILY PRN PO CONSTIPATION; Start 10/16/18 at 06:30 Paroxetine HCl (Paxil Cr) 25 mg DAILY PO Last administered on 10/20/18at 14:09; Admin Dose 25 MG; Start 10/16/18 at 11:00 Furosemide (Lasix) 40 mg DAILY PO ; Start 10/20/18 at 09:00 Heparin Sodium (Porcine) (Heparin (1000 Units/ml)) 500 unit WITH DIALYSIS HE Last administered on 10/20/18at 10:37; Admin Dose 500 UNIT; Start 10/20/18 at 10:00 Heparin Sodium (Porcine) (Heparin (1000 Units/ml)) 1,500 unit WITH DIALYSIS HE Last administered on 10/20/18at 10:38; Admin Dose 1,500 UNIT; Start 10/20/18 at 10:00 PAUL LNIDER MD October 20, 2018 17:15
[2018-10-20] MEDS ORDERED: ONDANSETRON 4 MG TAB PO PRN (17:30)
[2018-10-20] MEDS: ATORVASTATIN 40 MG TAB PO SCH (20:54)
--- NOTE | 2018-10-20 21:39 | PN ---
Date/Time of Note Date/Time of Note DATE: 10/20/18 TIME: 21:39 Assessment/Plan Lines/Catheters IV Catheter Type (from Nrs): JAMIL Pierre in Place (from Nrs): No Assessment/Plan Chief Complaint/Hosp Course -Bilateral lower extremity atherosclerosis with left lower extremity with left lower extremity third toe gangrene: It seems that the patient's left lower e xtremity third toe has become dry gangrene and currently stable. Unfortunately his first and second toe have also become gangrene with no significant erythema. The patient's foot pain has gradually improved since we had seen him a month ago and followed him in the office over the past few weeks. From a vascular surgery standpoint, recommend no current intervention as the patient had episode of u pper gastrointestinal bleed and subsequently CABG. We are hoping that the patient's lower extremity atherosclerotic disease will not worsen during this period of time. Resume anticoagulation and antiplatelet therapy when cleared by multidisciplinary team. There is concern he may require an amputation should he not improve and develop worsening gangrene. This was discussed in detail with the family given his plethora of medical conditions -Bilateral lower extremity varicose veins and edema: The patient has component of mixed disease (venous insufficiency and arterial sufficiency). At the [facility], we recommend elevation of the bilateral lower extremities while at rest. No further intervention will be needed and can be followed as an outpatient in regards to venous insufficiency. -End-stage renal disease: At the moment the patient's left upper extremity fistula is nonfunctional. 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 I've been asked by our multidisciplinary team to re-evaluate. We will plan to perform a venogram with possible perm catheter placement if the IVC is patent. I have thoroughly spoken with the patient and at the bedside regarding our intervention and they understand the full scope of what is involved. Should he require further advanced intervention for dialysis access he may need to be t ransferred to a tertiary center secondary to limited resources. Our multidisciplinary team has agreed with the plan and involved in the decision. Certified esthetics instructor present. They have asked for us to proceed with doing this intervention for them as they very much would like to have a perm catheter placed that is functional Optimize vascular status (BP meds, diet, nutrition, exercise, sugar control). We will resume antiplatelet therapy once cleared from GI standpoint. Discussed findings, plan and management with the patient and at the bedside and they understand. Thank you for allowing us to partake in the care of your patient. Please call with any questions. A certified esthetics instructor was present throughout the conversation. Subjective 24 Hr Interval Summary Constitutional: no complaints Exam/Review of Systems Vital Signs Vitals Vital Signs Date Temp Pulse Resp B/P (MAP) Pulse Ox O2 O2 Flow FiO2 Time Delivery Rate 10/23/18 58 12:26 10/23/18 98.1 16 163/78 94 11:40 (106) 10/23/18 Nasal 2.0 07:40 Cannula Intake and Output 10/22/18 10/22/18 10/23/18 1515:00 23:00 07:00 IntakeIntake Total 200 ml 400 ml OutputOutput Total 3600 ml BalanceBalance -3600 ml 200 ml 400 ml Exam Free Text/Dictation GENERAL: Awake. PULMONARY: Coarse BS bilaterally, CARDIOVASCULAR: S1, S2 present. Dressing intact ABDOMEN: Soft, nontender, nondistended. Bowel sounds positive. Large truncal obesity. EXTREMITIES: Right lower extremity palpable femoral pulse, nonpalpable pedal pulse. Motor, sensory intact. Cap refill 3 to 4 seconds. Presence of varicose veins and large leg. Left lower extremity palpable femoral pulse, nonpalpable pedal pulse. Motor, sensory intact. Cap refill 3 to 4 seconds. Third toe gangrene, First and second toe with previous bluish discoloration and formation of gangrene now. Heel gangrene developing. groin catheter intact Varicose veins and edema of the left lower extremity with presence of mild lipodermatosclerosis. Left upper extremity: Palpable brachial pulse, motor/sensory intact, fistula with bruit and thrill not present Results Result Diagram: 10/20/18 0543 10/20/18 0543 VANIA PEREYRA MD October 20, 2018 21:39
[2018-10-21] VITALS (12 sets, daily range): BP systolic 110–171; BP diastolic 48–76; PULSE 55–83; RESP 18–20
[2018-10-21] MEDS: INSULIN ASPART [NOVOLOG] 3 ML PEN SC SCH ×7 (08:00→21:25)
[2018-10-21] MEDS: INSULIN GLARGINE [LANTus] (100 UNITS/ML) SYG SC SCH (09:30)
[2018-10-21] MEDS: FUROSEMIDE 40 MG TAB PO SCH (09:33)
[2018-10-21] MEDS: FAMOTIDINE 20 MG TAB PO SCH ×2 (09:33→21:15)
[2018-10-21] MEDS: ACCU-CHEK XX SCH ×4 (09:33→21:00)
[2018-10-21] MEDS: ASPIRIN 81 MG TAB PO SCH (09:33)
[2018-10-21] MEDS: PAROXETINE (CR) 12.5 MG TAB PO SCH (09:33)
[2018-10-21] MEDS: BALSAM PERU/CASTOR OIL 60 GM TUBE TOP SCH (09:34)
[2018-10-21] MEDS: ONDANSETRON 4 MG INJ IV PRN (12:10)
--- NOTE | 2018-10-21 13:11 | CONS ---
Consult Date/Type/Reason Admit Date/Time September 24, 2018 at 08:08 Initial Consult Date 10/01/18 Date/Time of Note DATE: 10/21/18 TIME: 13:08 Subjective Patient see at bedside. Per patient's he has been more tired since his open heart procedure. He has not been eating well. Has no pain or discomfort. Objective Vitals Vital Signs Date Temp Pulse Resp B/P (MAP) Pulse Ox O2 O2 Flow FiO2 Time Delivery Rate 10/21/18 77 12:35 10/21/18 98.3 18 131/63 92 11:18 (85) 10/21/18 2.0 02:16 10/20/18 Nasal 20:03 Cannula Intake and Output 10/20/18 10/20/18 10/21/18 1515:00 23:00 07:00 IntakeIntake Total 380 ml OutputOutput Total 2200 ml 0 ml BalanceBalance -2200 ml 380 ml Exam Left foot dry gangrene of left 3rd digit. Gangrenous changes of left hallux and 2nd digit as well. No erythema or signs of acute infection. Results/Medications Result Diagram: 10/20/18 0543 10/20/18 0543 Results 24 hrs Laboratory Tests Test 10/20/18 18:17 10/20/18 18:36 10/20/18 18:56 10/20/18 19:14 Bedside Glucose 64 L 68 L 91 102 Test 10/20/18 21:24 10/21/18 08:11 10/21/18 12:15 Bedside Glucose 122 219 183 Home Meds Reported Medications Clopidogrel Bisulfate (Clopidogrel) 75 Mg Tablet, 75 MG PO DAILY, #30 TAB 09/24/18 Ezetimibe* (Zetia*) 10 Mg Tablet, 10 MG PO DAILY, TAB 08/29/18 Insulin Lispro (Humalog Kwikpen U-100) 100 Unit/1 Ml Insuln.pen, 0 SQ SLIDING SCALE, EA 08/28/18 Insulin Glargine* (Lantus*) 100 Unit/Ml Soln, 0 SC QHS, #1 VIAL 45-52 UNITS 08/28/18 Metolazone* (Metolazone*) 5 Mg Tablet, 10 MG PO BID, TAB 08/28/18 Multivit/Ca Carb/B Cmplx/Fa* (Isabel-Brenda*) 1 Tab Tab, 1 TAB PO DAILY, TAB 08/28/18 Furosemide* (Furosemide*) 80 Mg Tablet, 160 MG PO BID, #60 TAB 08/28/18 Folic Acid* (Folic Acid*) 1 Mg Tablet, 1 MG PO DAILY, TAB 08/28/18 Apixaban* (Eliquis*) 5 Mg Tablet, 5 MG PO BID, TAB 08/28/18 Sevelamer Carbonate* (Renvela*) 800 Mg Tablet, 0.8 GM PO WITH MEALS, TAB 08/28/18 Medications Current Medications Oxycodone/ Acetaminophen (Percocet (5/ 325)) 1 tab Q3H PRN PO PAIN LEVEL 1-5 Last administered on 10/20/18at 01:38; Admin Dose 1 TAB; Start 10/07/18 at 21:00 Ondansetron HCl (Zofran Inj) 4 mg Q6H PRN IV NAUSEA AND/OR VOMITING Last administered on 10/21/18at 12:10; Admin Dose 4 MG; Start 10/07/18 at 21:00 Famotidine (Pepcid) 20 mg BID PO Last administered on 10/21/18at 09:33; Admin Dose 20 MG; Start 10/08/18 at 21:00 Acetaminophen (Tylenol Tab) 650 mg Q3H PRN PO ELEVATED TEMPERATURE Last administered on 10/19/18at 21:48; Admin Dose 650 MG; Start 10/07/18 at 21:00 Atorvastatin Calcium (Lipitor) 40 mg HS PO Last administered on 10/20/18at 20:54; Admin Dose 40 MG; Start 10/08/18 at 21:00 Insulin Aspart (Novolog Insulin Pen) NOVOLOG *MODERATE* ALGORITHM WITH MEALS BEDTIME SC Last administered on 10/21/18at 09:31; Admin Dose 4 UNIT; Start 10/09/18 at 11:30 Glucose (Glutose) 15 gm Q15M PRN PO DECREASED GLUCOSE; Start 10/09/18 at 12:00 Glucose (Glutose) 22.5 gm Q15M PRN PO DECREASED GLUCOSE; Start 10/09/18 at 12:00 Dextrose (D50w Syringe) 25 ml Q15M PRN IV DECREASED GLUCOSE; Start 10/09/18 at 12:00 Dextrose (D50w Syringe) 50 ml Q15M PRN IV DECREASED GLUCOSE; Start 10/09/18 at 12:00 Glucagon (Glucagen) 1 mg Q15M PRN IM DECREASED GLUCOSE; Start 10/09/18 at 12:00 Glucose (Glutose) 15 gm Q15M PRN BUCCAL DECREASED GLUCOSE Last administered on 10/20/18 18:52; Admin Dose 15 GM; Start 10/09/18 at 12:00 Diagnostic Test (Pha) (Accu-Chek) 1 ea AC MEALS AND BEDTIME XX Last administered on 10/21/18 12:10; Admin Dose 1 EA; Start 10/09/18 at 11:00 Insulin Glargine (Lantus) 35 units DAILY@0830 SC Last administered on 10/21/18 09:30; Admin Dose 35 UNITS; Start 10/10/18 at 09:00 Insulin Aspart (Novolog Insulin Pen) 8 unit WITH MEALS SC Last administered on 10/18/18 17:19; Admin Dose 8 UNIT; Start 10/10/18 at 11:30 Apixaban (Eliquis) 5 mg BID PO Last administered on 10/19/18 21:03; Admin Dose 5 MG; Start 10/11/18 at 21:00; Status Hold Aspirin (Aspirin) 81 mg DAILY PO Last administered on 10/21/18 09:33; Admin D ose 81 MG; Start 10/13/18 at 09:00 Albumin Human 100 ml @ 100 mls/hr DURING DIALYSIS PRN IV BLOOD PRESSURE SUPPORT Last administered on 10/20/18 11:21; Admin Dose 100 MLS/HR; Start 10/13/18 at 11:30 Magnesium Hydroxide (Milk Of Mag) 30 ml DAILY PRN PO CONSTIPATION; Start 10/16/18 at 06:30 Paroxetine HCl (Paxil Cr) 25 mg DAILY PO Last administered on 10/21/18 09:33; Admin Dose 25 MG; Start 10/16/18 at 11:00 Furosemide (Lasix) 40 mg DAILY PO Last administered on 10/21/18 09:33; Admin Dose 40 MG; Start 10/20/18 at 09:00 Heparin Sodium (Porcine) (Heparin (1000 Units/ml)) 500 unit WITH DIALYSIS HE Last administered on 10/20/18 10:37; Admin Dose 500 UNIT; Start 10/20/18 at 10:00 Heparin Sodium (Porcine) (Heparin (1000 Units/ml)) 1,500 unit WITH DIALYSIS HE Last administered on 10/20/18at 10:38; Admin Dose 1,500 UNIT; Start 10/20/18 at 10:00 Ondansetron HCl (Zofran Tab) 4 mg Q6H PRN PO NAUSEA AND/OR VOMITING; Start 10/20/18 at 17:30 Assessment/Plan Assessment/Plan (Daily) 67 yo male with PVD, DM and gangrene of left foot hallux, 2nd and 3rd digit. -Daily dressing changes of left foot with betadine dressing recommended to keep areas dry. -No urgent need for surgical intervention at this time. -Will continue to follow. PUSHPA WALL DPM October 21, 2018 13:11
--- NOTE | 2018-10-21 15:39 | PN ---
Date/Time of Note Date/Time of Note DATE: 10/21/18 TIME: 15:37 Assessment/Plan VTE Prophylaxis Risk score (from Nsg)>0 risk: 3 SCD applied (from Ns): Yes Pharmacological prophylaxis: heparin Lines/Catheters IV Catheter Type (from Nrsg): JAMIL Central line still needed: Yes Urinary Cath still in place: No Assessment/Plan Hospital Course 67 yo with numerous comorbidities including dyslipidemia, IDDM, ESRD on HD and severe PVD who is also anticoagulated on Eliquis/Plavix,here with worsening malaise, found to have severe anemia/positive stool OB... also had NSTEMI Abdominal pain with nausea: - KUB ok. Supportive care NSTEMI/Multivessel coronary artery disease - s/p LHC 09/30 - s/p CABG 10/07 - Cautiously resume beta blockers. - Anticoag, antiplatelet per CT surgery - Continue statin. Severe acute symptomatic blood loss anemia -Improved with multiple transfusion. 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 -Wound care #Obesity with BMI 36.3 -Weight reduction advised. #Anemia of ESRD -on Epogen with hemodialysis #Debility secondary to comorbidities -Continue PT -ARU eval #Depression -Started Paxil DVT prophylaxis: SCDs PUD prophylaxis: Protonix DC planning: Plan is for angiogram with vascular on 10/21, continue PT Result Diagram: 10/20/18 0543 10/20/18 0543 Results 24hrs Laboratory Tests Test 10/20/18 18:17 10/20/18 18:36 10/20/18 18:56 10/20/18 19:14 Bedside Glucose 64 L 68 L 91 102 Test 10/20/18 21:24 10/21/18 08:11 10/21/18 12:15 Bedside Glucose 122 219 183 Subjective 24 Hr Interval Summary Free Text/Dictation Continues to feel lethargic, nauseous, unwell. No localizing pains KUB wnl Exam/Review of Systems Exam Vitals Vital Signs Date Temp Pulse Resp B/P (MAP) Pulse Ox O2 O2 Flow FiO2 Time Delivery Rate 10/21/18 77 12:35 10/21/18 98.3 18 131/63 92 11:18 (85) 10/21/18 2.0 02:16 10/20/18 Nasal 20:03 Cannula Intake and Output 10/20/18 10/20/18 10/21/18 1515:00 23:00 07:00 IntakeIntake Total 380 ml OutputOutput Total 2200 ml 0 ml BalanceBalance -2200 ml 380 ml Results Results 24hrs Laboratory Tests Test 10/20/18 18:17 10/20/18 18:36 10/20/18 18:56 10/20/18 19:14 Bedside Glucose 64 L 68 L 91 102 Test 10/20/18 21:24 10/21/18 08:11 10/21/18 12:15 Bedside Glucose 122 219 183 Medications Medication Current Medications Oxycodone/ Acetaminophen (Percocet (5/ 325)) 1 tab Q3H PRN PO PAIN LEVEL 1-5 Last administered on 10/20/18 01:38; Admin Dose 1 TAB; Start 10/07/18 at 21:00 Ondansetron HCl (Zofran Inj) 4 mg Q6H PRN IV NAUSEA AND/OR VOMITING Last administered on 10/21/18 12:10; Admin Dose 4 MG; Start 10/07/18 at 21:00 Famotidine (Pepcid) 20 mg BID PO Last administered on 10/21/18 09:33; Admin Dose 20 MG; Start 10/08/18 at 21:00 Acetaminophen (Tylenol Tab) 650 mg Q3H PRN PO ELEVATED TEMPERATURE Last administered on 10/19/18 21:48; Admin Dose 650 MG; Start 10/07/18 at 21:00 Atorvastatin Calcium (Lipitor) 40 mg HS PO Last administered on 10/20/18at 20:54; Admin Dose 40 MG; Start 10/08/18 at 21:00 Insulin Aspart (Novolog Insulin Pen) NOVOLOG *MODERATE* ALGORITHM WITH MEALS BEDTIME SC Last administered on 10/21/18 09:31; Admin Dose 4 UNIT; Start 10/09/18 at 11:30 Glucose (Glutose) 15 gm Q15M PRN PO DECREASED GLUCOSE; Start 10/09/18 at 12:00 Glucose (Glutose) 22.5 gm Q15M PRN PO DECREASED GLUCOSE; Start 10/09/18 at 12:00 Dextrose (D50w Syringe) 25 ml Q15M PRN IV DECREASED GLUCOSE; Start 10/09/18 at 12:00 Dextrose (D50w Syringe) 50 ml Q15M PRN IV DECREASED GLUCOSE; Start 10/09/18 at 12:00 Glucagon (Glucagen) 1 mg Q15M PRN IM DECREASED GLUCOSE; Start 10/09/18 at 12:00 Glucose (Glutose) 15 gm Q15M PRN BUCCAL DECREASED GLUCOSE Last administered on 10/20/18 18:52; Admin Dose 15 GM; Start 10/09/18 at 12:00 Diagnostic Test (Pha) (Accu-Chek) 1 ea AC MEALS AND BEDTIME XX Last administered on 10/21/18 12:10; Admin Dose 1 EA; Start 10/09/18 at 11:00 Insulin Glargine (Lantus) 35 units DAILY@0830 SC Last administered on 10/21/18 09:30; Admin Dose 35 UNITS; Start 10/10/18 at 09:00 Insulin Aspart (Novolog Insulin Pen) 8 unit WITH MEALS SC Last administered on 10/18/18 17:19; Admin Dose 8 UNIT; Start 10/10/18 at 11:30 Apixaban (Eliquis) 5 mg BID PO Last administered on 10/19/18 21:03; Admin Dose 5 MG; Start 10/11/18 at 21:00; Status Hold Aspirin (Aspirin) 81 mg DAILY PO Last administered on 10/21/18 09:33; Admin Dose 81 MG; Start 10/13/18 at 09:00 Albumin Human 100 ml @ 100 mls/hr DURING DIALYSIS PRN IV BLOOD PRESSURE SUPPORT Last administered on 10/20/18 11:21; Admin Dose 100 MLS/HR; Start 10/13/18 at 11:30 Magnesium Hydroxide (Milk Of Mag) 30 ml DAILY PRN PO CONSTIPATION; Start 10/16/18 at 06:30 Paroxetine HCl (Paxil Cr) 25 mg DAILY PO Last administered on 10/21/18 09:33; Admin Dose 25 MG; Start 10/16/18 at 11:00 Furosemide (Lasix) 40 mg DAILY PO Last administered on 10/21/18 09:33; Admin Dose 40 MG; Start 10/20/18 at 09:00 Heparin Sodium (Porcine) (Heparin (1000 Units/ml)) 500 unit WITH DIALYSIS HE Last administered on 10/20/18at 10:37; Admin Dose 500 UNIT; Start 10/20/18 at 10:00 Heparin Sodium (Porcine) (Heparin (1000 Units/ml)) 1,500 unit WITH DIALYSIS HE Last administered on 10/20/18at 10:38; Admin Dose 1,500 UNIT; Start 10/20/18 at 10:00 Ondansetron HCl (Zofran Tab) 4 mg Q6H PRN PO NAUSEA AND/OR VOMITING; Start 10/20/18 at 17:30 PAUL LINDER MD October 21, 2018 15:39
--- NOTE | 2018-10-21 16:30 | CONS ---
Assessment/Plan Assessment/Plan Assessment/Plan (Daily) 1. acute Hyperkalemia due to GI bleeding- resolved 2.Acute fluid overload- now resolved 3. acute GI bleeding causing acute blood loss anemia- S/p Status post EGD/colonoscopy 09/27/19 -Anastomosis ulcer -Normal colonoscopy 4. Severe Anemia with Hb 5.8 on admission s/p 5 U PRBC transfusion for GI ble eding during this admission - ot also has anemia of ESRD 5. H/O HTN 6. H/O peripherla vascular disease 7. ESRD on HD -follow up at [facility] for scheduled HD on MWF 8. Acute NSTEMI s/p LHC on 09/30/18 that showed 3 V CAD- s/p CABG on 10/07/18 Plan: s/p CABG on 10/07/18-s/p left groin Madi, - s/p HD today 3 L removed, then, will continue HD on MWF pt extensive IVC thrombosis, IR said they can not do , D/w Dr. Velasco -Plan is to convert left groin Madi to permacath if possible- Eliquis has been stopped for now d/w family about very poor vascular access Continue lasix to 40mg Po daily will follow up Consultation Date/Type/Reason Admit Date/Time September 24, 2018 at 08:08 Initial Consult Date 09/24/18 Type of Consult NEPHROLOGY Date/Time of Note DATE: 10/21/18 TIME: 16:30 Exam/Review of Systems Exam Vitals Vital Signs Date Temp Pulse Resp B/P (MAP) Pulse Ox O2 O2 Flow FiO2 Time Delivery Rate 10/21/18 98.6 75 20 148/67 98 Room Air 16:00 (94) 10/21/18 2.0 02:16 Intake and Output 10/20/18 10/20/18 10/21/18 1515:00 23:00 07:00 IntakeIntake Total 380 ml OutputOutput Total 2200 ml 0 ml BalanceBalance -2200 ml 380 ml Exam Constitutional: alert, awake no acute distress Neck: supple, no JVD, no LAD Respiratory: crackles/rales, diminished breath sounds Cardiovascular: regular rate and rhythm, nl pulses, Scar healthy Gastrointestinal: soft, non-tender Musculoskeletal: swelling Extremities: 1+ pitting edema, left groin permacath 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: awake, alert, non focal Results Result Diagram: 10/20/18 0543 10/20/18 0543 Results 24hrs Laboratory Tests Test 10/20/18 18:17 10/20/18 18:36 10/20/18 18:56 10/20/18 19:14 Bedside Glucose 64 L 68 L 91 102 Test 10/20/18 21:24 10/21/18 08:11 10/21/18 12:15 Bedside Glucose 122 219 183 Medications Medication Current Medications Oxycodone/ Acetaminophen (Percocet (5/ 325)) 1 tab Q3H PRN PO PAIN LEVEL 1-5 Last administered on 10/20/18 01:38; Admin Dose 1 TAB; Start 10/07/18 at 21:00 Ondansetron HCl (Zofran Inj) 4 mg Q6H PRN IV NAUSEA AND/OR VOMITING Last administered on 10/21/18 12:10; Admin Dose 4 MG; Start 10/07/18 at 21:00 Famotidine (Pepcid) 20 mg BID PO Last administered on 10/21/18 09:33; Admin Dose 20 MG; Start 10/08/18 at 21:00 Acetaminophen (Tylenol Tab) 650 mg Q3H PRN PO ELEVATED TEMPERATURE Last administered on 10/19/18 21:48; Admin Dose 650 MG; Start 10/07/18 at 21:00 Atorvastatin Calcium (Lipitor) 40 mg HS PO Last administered on 10/20/18 20:54; Admin Dose 40 MG; Start 10/08/18 at 21:00 Insulin Aspart (Novolog Insulin Pen) NOVOLOG *MODERATE* ALGORITHM WITH MEALS BEDTIME SC Last administered on 10/21/18 09:31; Admin Dose 4 UNIT; Start 10/09/18 at 11:30 Glucose (Glutose) 15 gm Q15M PRN PO DECREASED GLUCOSE; Start 10/09/18 at 12:00 Glucose (Glutose) 22.5 gm Q15M PRN PO DECREASED GLUCOSE; Start 10/09/18 at 12:00 Dextrose (D50w Syringe) 25 ml Q15M PRN IV DECREASED GLUCOSE; Start 10/09/18 at 12:00 Dextrose (D50w Syringe) 50 ml Q15M PRN IV DECREASED GLUCOSE; Start 10/09/18 at 12:00 Glucagon (Glucagen) 1 mg Q15M PRN IM DECREASED GLUCOSE; Start 10/09/18 at 12:00 Glucose (Glutose) 15 gm Q15M PRN BUCCAL DECREASED GLUCOSE Last administered on 10/20/18 18:52; Admin Dose 15 GM; Start 10/09/18 at 12:00 Diagnostic Test (Pha) (Accu-Chek) 1 ea AC MEALS AND BEDTIME XX Last administered on 10/21/18 12:10; Admin Dose 1 EA; Start 10/09/18 at 11:00 Insulin Glargine (Lantus) 35 units DAILY@0830 SC Last administered on 10/21/18 09:30; Admin Dose 35 UNITS; Start 10/10/18 at 09:00 Insulin Aspart (Novolog Insulin Pen) 8 unit WITH MEALS SC Last administered on 10/18/18 17:19; Admin Dose 8 UNIT; Start 10/10/18 at 11:30 Apixaban (Eliquis) 5 mg BID PO Last administered on 10/19/18 21:03; Admin Dose 5 MG; Start 10/11/18 at 21:00; Status Hold Aspirin (Aspirin) 81 mg DAILY PO Last administered on 10/21/18 09:33; Admin Dose 81 MG; Start 10/13/18 at 09:00 Albumin Human 100 ml @ 100 mls/hr DURING DIALYSIS PRN IV BLOOD PRESSURE SUPPORT Last administered on 10/20/18 11:21; Admin Dose 100 MLS/HR; Start 10/13/18 at 11:30 Magnesium Hydroxide (Milk Of Mag) 30 ml DAILY PRN PO CONSTIPATION; Start 10/16/18 at 06:30 Paroxetine HCl (Paxil Cr) 25 mg DAILY PO Last administered on 10/21/18 09:33; Admin Dose 25 MG; Start 10/16/18 at 11:00 Furosemide (Lasix) 40 mg DAILY PO Last administered on 10/21/18 09:33; Admin Dose 40 MG; Start 10/20/18 at 09:00 Heparin Sodium (Porcine) (Heparin (1000 Units/ml)) 500 unit WITH DIALYSIS HE Last administered on 10/20/18 10:37; Admin Dose 500 UNIT; Start 10/20/18 at 10:00 Heparin Sodium (Porcine) (Heparin (1000 Units/ml)) 1,500 unit WITH DIALYSIS HE Last administered on 5/27/19at 10:38; Admin Dose 1,500 UNIT; Start 10/20/18 at 10:00 Ondansetron HCl (Zofran Tab) 4 mg Q6H PRN PO NAUSEA AND/OR VOMITING; Start 10/20/18 at 17:30 RAQUEL MCDOWELL MD October 21, 2018 16:30
[2018-10-21] MEDS: ATORVASTATIN 40 MG TAB PO SCH (21:15)
[2018-10-22] VITALS (27 sets, daily range): BP systolic 115–169; BP diastolic 58–88; PULSE 55–85; RESP 16–20
[2018-10-22] MEDS: HEPARIN 1000 UNITS/ML 10 ML INJ HE SCH (07:53)
[2018-10-22] MEDS: ACCU-CHEK XX SCH ×4 (07:54→21:20)
[2018-10-22] MEDS: INSULIN ASPART [NOVOLOG] 3 ML PEN SC SCH ×9 (07:59→21:19)
[2018-10-22] MEDS: INSULIN GLARGINE [LANTus] (100 UNITS/ML) SYG SC SCH (07:59)
--- NOTE | 2018-10-22 08:17 | CONS ---
Assessment/Plan Assessment/Plan Assessment/Plan (Daily) 1. acute Hyperkalemia due to GI bleeding- resolved 2.Acute fluid overload- now resolved 3. acute GI bleeding causing acute blood loss anemia- S/p Status post EGD/colonoscopy 09/27/19 -Anastomosis ulcer -Normal colonoscopy 4. Severe Anemia with Hb 5.8 on admission s/p 5 U PRBC transfusion for GI ble eding during this admission - ot also has anemia of ESRD 5. H/O HTN 6. H/O peripherla vascular disease 7. ESRD on HD -follow up at [facility] [place] for scheduled HD on MWF 8. Acute NSTEMI s/p LHC on 09/30/18 that showed 3 V CAD- s/p CABG on 10/07/18 Plan: s/p CABG on 10/07/18-s/p left groin Madi, - s/p HD today 3 L removed, then, will continue HD on MWF pt extensive IVC thrombosis, IR said they can not do , D/w Dr. Velasco -Plan is to convert left groin Madi to permacath if possible- Eliquis has been stopped for now d/w family about very poor vascular access Continue lasix to 40mg Po daily Epogen 76087 units SQ MWF one dose today will follow up Consultation Date/Type/Reason Admit Date/Time September 24, 2018 at 08:08 Initial Consult Date 09/24/18 Type of Consult NEPHROLOGY Date/Time of Note DATE: 10/22/18 TIME: 08:17 24 HR Interval Summary Free Text/Dictation s/p HD today 3 L removed Exam/Review of Systems Exam Vitals Vital Signs Date Temp Pulse Resp B/P (MAP) Pulse Ox O2 O2 Flow FiO2 Time Delivery Rate 10/22/18 98.2 78 20 138/88 96 Room Air 07:21 (105) 10/22/18 2.0 04:45 Intake and Output 10/21/18 10/21/18 10/22/18 1515:00 23:00 07:00 IntakeIntake Total 480 ml 550 ml OutputOutput Total 1000 ml BalanceBalance 480 ml -450 ml Exam Constitutional: alert, awake no acute distress Neck: supple, no JVD, no LAD Respiratory: crackles/rales, diminished breath sounds Cardiovascular: regular rate and rhythm, nl pulses, Scar healthy Gastrointestinal: soft, non-tender Musculoskeletal: swelling Extremities: 1+ pitting edema, left groin permacath 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: awake, alert, non focal Results Result Diagram: 10/20/18 0543 10/20/18 0543 Results 24hrs Laboratory Tests Test 10/21/18 12:15 10/21/18 17:17 10/21/18 21:13 10/22/18 02:22 Bedside Glucose 183 182 235 H 179 Test 10/22/18 07:50 Bedside Glucose 205 Medications Medication Current Medications Oxycodone/ Acetaminophen (Percocet (5/ 325)) 1 tab Q3H PRN PO PAIN LEVEL 1-5 Last administered on 10/20/18at 01:38; Admin Dose 1 TAB; Start 10/07/18 at 21:00 Ondansetron HCl (Zofran Inj) 4 mg Q6H PRN IV NAUSEA AND/OR VOMITING Last administered on 10/21/18 12:10; Admin Dose 4 MG; Start 10/07/18 at 21:00 Famotidine (Pepcid) 20 mg BID PO Last administered on 10/21/18at 21:15; Admin Dose 20 MG; Start 10/08/18 at 21:00 Acetaminophen (Tylenol Tab) 650 mg Q3H PRN PO ELEVATED TEMPERATURE Last administered on 10/19/18 21:48; Admin Dose 650 MG; Start 10/07/18 at 21:00 Atorvastatin Calcium (Lipitor) 40 mg HS PO Last administered on 10/21/18 21:15; Admin Dose 40 MG; Start 10/08/18 at 21:00 Insulin Aspart (Novolog Insulin Pen) NOVOLOG *MODERATE* ALGORITHM WITH MEALS BEDTIME SC Last administered on 10/22/18at 07:59; Admin Dose 4 UNIT; Start 09/24 11/12 at 11:30 Glucose (Glutose) 15 gm Q15M PRN PO DECREASED GLUCOSE; Start 10/09/18 at 12:00 Glucose (Glutose) 22.5 gm Q15M PRN PO DECREASED GLUCOSE; Start 10/09/18 at 12:00 Dextrose (D50w Syringe) 25 ml Q15M PRN IV DECREASED GLUCOSE; Start 10/09/18 at 12:00 Dextrose (D50w Syringe) 50 ml Q15M PRN IV DECREASED GLUCOSE; Start 10/09/18 at 12:00 Glucagon (Glucagen) 1 mg Q15M PRN IM DECREASED GLUCOSE; Start 10/09/18 at 12:00 Glucose (Glutose) 15 gm Q15M PRN BUCCAL DECREASED GLUCOSE Last administered on 10/20/18 18:52; Admin Dose 15 GM; Start 10/09/18 at 12:00 Diagnostic Test (Pha) (Accu-Chek) 1 ea AC MEALS AND BEDTIME XX Last administered on 10/22/18 07:54; Admin Dose 1 EA; Start 10/09/18 at 11:00 Insulin Glargine (Lantus) 35 units DAILY@0830 SC Last administered on 10/22/18 07:59; Admin Dose 35 UNITS; Start 10/10/18 at 09:00 Insulin Aspart (Novolog Insulin Pen) 8 unit WITH MEALS SC Last administered on 10/22/18 07:59; Admin Dose 8 UNIT; Start 10/10/18 at 11:30 Apixaban (Eliquis) 5 mg BID PO Last administered on 10/19/18 21:03; Admin Dose 5 MG; Start 10/11/18 at 21:00; Status Hold Aspirin (Aspirin) 81 mg DAILY PO Last administered on 10/21/18 09:33; Admin Dose 81 MG; Start 10/13/18 at 09:00 Albumin Human 100 ml @ 100 mls/hr DURING DIALYSIS PRN IV BLOOD PRESSURE SUPPORT Last administered on 10/20/18 11:21; Admin Dose 100 MLS/HR; Start 10/13/18 at 11:30 Magnesium Hydroxide (Milk Of Mag) 30 ml DAILY PRN PO CONSTIPATION; Start 10/16/18 at 06:30 Paroxetine HCl (Paxil Cr) 25 mg DAILY PO Last administered on 10/21/18 09:33; Admin Dose 25 MG; Start 10/16/18 at 11:00 Furosemide (Lasix) 40 mg DAILY PO Last administered on 10/21/18 09:33; Admin Dose 40 MG; Start 10/20/18 at 09:00 Heparin Sodium (Porcine) (Heparin (1000 Units/ml)) 500 unit WITH DIALYSIS HE L ast administered on 10/22/18 07:53; Admin Dose 500 UNIT; Start 10/20/18 at 10:00 Heparin Sodium (Porcine) (Heparin (1000 Units/ml)) 1,500 unit WITH DIALYSIS HE Last administered on 10/20/18at 10:38; Admin Dose 1,500 UNIT; Start 10/20/18 at 10:00 Ondansetron HCl (Zofran Tab) 4 mg Q6H PRN PO NAUSEA AND/OR VOMITING; Start 10/20/18 at 17:30 RAQUEL MCDOWELL MD October 22, 2018 08:17
[2018-10-22] MEDS: FUROSEMIDE 40 MG TAB PO SCH (09:00)
[2018-10-22] MEDS ORDERED: ALTEPLASE (CATHFLO) 2 MG INJ CATHETER ONE (09:00)
[2018-10-22] MEDS: ASPIRIN 81 MG TAB PO SCH (09:00)
[2018-10-22] MEDS: PAROXETINE (CR) 12.5 MG TAB PO SCH ×2 (09:00→13:37)
[2018-10-22] MEDS: FAMOTIDINE 20 MG TAB PO SCH ×2 (09:00→20:49)
[2018-10-22] MEDS: BALSAM PERU/CASTOR OIL 60 GM TUBE TOP SCH (10:12)
--- NOTE | 2018-10-22 14:54 | PN ---
Date/Time of Note Date/Time of Note DATE: 10/22/18 TIME: 14:51 Assessment/Plan VTE Prophylaxis Risk score (from Nsg)>0 risk: 5 SCD applied (from Nsg): Yes Pharmacological prophylaxis: heparin Lines/Catheters IV Catheter Type (from Nrsg): JAMIL Urinary Cath still in place: No Assessment/Plan Hospital Course 67 yo with numerous comorbidities including dyslipidemia, IDDM, ESRD on HD and severe PVD who is also anticoagulated on Eliquis/Plavix,here with worsening malaise, found to have severe anemia/positive stool OB... also had NSTEMI Abdominal pain with nausea: - KUB ok. Supportive care NSTEMI/Multivessel coronary artery disease - s/p LHC 09/30 - s/p CABG 10/07 - Cautiously resume beta blockers. - Anticoag, antiplatelet per CT surgery - Continue statin. Severe acute symptomatic blood loss anemia -Improved with multiple transfusion. 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 -Wound care #Obesity with BMI 36.3 -Weight reduction advised. #Anemia of ESRD -on Epogen with hemodialysis #Debility secondary to comorbidities -Continue PT -ARU eval #Depression -Started Paxil DVT prophylaxis: SCDs PUD prophylaxis: Protonix DC planning: Plan is for venogram with vascular on 10/23, continue PT Result Diagram: 10/20/18 0543 10/20/18 0543 Results 24hrs Laboratory Tests Test 10/21/18 17:17 10/21/18 21:13 10/22/18 02:22 10/22/18 07:50 Bedside Glucose 182 235 H 179 205 Test 10/22/18 12:07 Bedside Glucose 137 Subjective 24 Hr Interval Summary Free Text/Dictation Continues to be depressed Not wanting to eat Exam/Review of Systems Exam Vitals Vital Signs Date Temp Pulse Resp B/P (MAP) Pulse Ox O2 O2 Flow FiO2 Time Delivery Rate 10/22/18 81 12:12 10/22/18 98.3 20 122/69 96 Nasal 11:57 (86) Cannula 10/22/18 2.0 08:10 Intake and Output 10/21/18 10/21/18 10/22/18 1515:00 23:00 07:00 IntakeIntake Total 480 ml 550 ml OutputOutput Total 1000 ml BalanceBalance 480 ml -450 ml Results Results 24hrs Laboratory Tests Test 10/21/18 17:17 10/21/18 21:13 10/22/18 02:22 10/22/18 07:50 Bedside Glucose 182 235 H 179 205 Test 10/22/18 12:07 Bedside Glucose 137 Medications Medication Current Medications Oxycodone/ Acetaminophen (Percocet (5/ 325)) 1 tab Q3H PRN PO PAIN LEVEL 1-5 Last administered on 10/20/18 01:38; Admin Dose 1 TAB; Start 10/07/18 at 21:00 Ondansetron HCl (Zofran Inj) 4 mg Q6H PRN IV NAUSEA AND/OR VOMITING Last administered on 10/21/18 12:10; Admin Dose 4 MG; Start 10/07/18 at 21:00 Famotidine (Pepcid) 20 mg BID PO Last administered on 10/21/18 21:15; Admin Dose 20 MG; Start 10/08/18 at 21:00 Acetaminophen (Tylenol Tab) 650 mg Q3H PRN PO ELEVATED TEMPERATURE Last administered on 10/19/18 21:48; Admin Dose 650 MG; Start 10/07/18 at 21:00 Atorvastatin Calcium (Lipitor) 40 mg HS PO Last administered on 10/21/18 21:15; Admin Dose 40 MG; Start 10/08/18 at 21:00 Insulin Aspart (Novolog Insulin Pen) NOVOLOG *MODERATE* ALGORITHM WITH MEALS BEDTIME SC Last administered on 10/21/18 21:25; Admin Dose 2 UNIT; Start 10/09/18 at 11:30 Glucose (Glutose) 15 gm Q15M PRN PO DECREASED GLUCOSE; Start 10/09/18 at 12:00 Glucose (Glutose) 22.5 gm Q15M PRN PO DECREASED GLUCOSE; Start 10/09/18 at 12:00 Dextrose (D50w Syringe) 25 ml Q15M PRN IV DECREASED GLUCOSE; Start 10/09/18 at 12:00 Dextrose (D50w Syringe) 50 ml Q15M PRN IV DECREASED GLUCOSE; Start 10/09/18 at 12:00 Glucagon (Glucagen) 1 mg Q15M PRN IM DECREASED GLUCOSE; Start 10/09/18 at 12:00 Glucose (Glutose) 15 gm Q15M PRN BUCCAL DECREASED GLUCOSE Last administered on 10/20/18 18:52; Admin Dose 15 GM; Start 10/09/18 at 12:00 Diagnostic Test (Pha) (Accu-Chek) 1 ea AC MEALS AND BEDTIME XX Last administered on 10/22/18 12:07; Admin Dose 1 EA; Start 10/09/18 at 11:00 Insulin Glargine (Lantus) 35 units DAILY@0830 SC Last administered on 10/22/18 07:59; Admin Dose 35 UNITS; Start 10/10/18 at 09:00 Insulin Aspart (Novolog Insulin Pen) 8 unit WITH MEALS SC Last administered on 10/18/18 17:19; Admin Dose 8 UNIT; Start 10/10/18 at 11:30 Apixaban (Eliquis) 5 mg BID PO Last administered on 10/19/18 21:03; Admin Dose 5 MG; Start 10/11/18 at 21:00; Status Hold Aspirin (Aspirin) 81 mg DAILY PO Last administered on 10/21/18 09:33; Admin Dose 81 MG; Start 10/13/18 at 09:00 Albumin Human 100 ml @ 100 mls/hr DURING DIALYSIS PRN IV BLOOD PRESSURE SUPPORT Last administered on 10/20/18 11:21; Admin Dose 100 MLS/HR; Start 10/13/18 at 11:30 Magnesium Hydroxide (Milk Of Mag) 30 ml DAILY PRN PO CONSTIPATION; Start 10/16/18 at 06:30 Paroxetine HCl (Paxil Cr) 25 mg DAILY PO Last administered on 10/22/18 13:37; Admin Dose 25 MG; Start 10/16/18 at 11:00 Furosemide (Lasix) 40 mg DAILY PO Last administered on 10/21/18 09:33; Admin Dose 40 MG; Start 10/20/18 at 09:00 Heparin Sodium (Porcine) (Heparin (1000 Units/ml)) 500 unit WITH DIALYSIS HE Last administered on 10/22/18at 07:53; Admin Dose 500 UNIT; Start 10/20/18 at 10:00 Heparin Sodium (Porcine) (Heparin (1000 Units/ml)) 1,500 unit WITH DIALYSIS HE Last administered on 10/20/18at 10:38; Admin Dose 1,500 UNIT; Start 10/20/18 at 10:00 Ondansetron HCl (Zofran Tab) 4 mg Q6H PRN PO NAUSEA AND/OR VOMITING; Start 10/20/18 at 17:30 PAUL LINDER MD October 22, 2018 14:53
[2018-10-22] MEDS: ATORVASTATIN 40 MG TAB PO SCH (20:49)
[2018-10-22] MEDS ORDERED: EPOETIN ALFA-EPBX (ESRD) 10,000 UNIT/ML VIAL SC ONE (22:00)
[2018-10-23] VITALS (10 sets, daily range): BP systolic 127–182; BP diastolic 53–78; PULSE 58–84; RESP 16–18
[2018-10-23] MEDS: OXYCODONE/ACETAMINOPHEN (5/325) TAB PO PRN (02:41)
[2018-10-23] MEDS: ACCU-CHEK XX SCH ×4 (07:36→21:27)
[2018-10-23] MEDS: INSULIN ASPART [NOVOLOG] 3 ML PEN SC SCH ×7 (08:00→21:00)
[2018-10-23] MEDS: INSULIN GLARGINE [LANTus] (100 UNITS/ML) SYG SC SCH (08:20)
[2018-10-23] MEDS: BALSAM PERU/CASTOR OIL 60 GM TUBE TOP SCH (08:21)
[2018-10-23] MEDS: PAROXETINE (CR) 12.5 MG TAB PO SCH (08:50)
[2018-10-23] MEDS: ASPIRIN 81 MG TAB PO SCH (08:50)
[2018-10-23] MEDS: FUROSEMIDE 40 MG TAB PO SCH (08:50)
[2018-10-23] MEDS: FAMOTIDINE 20 MG TAB PO SCH ×2 (08:50→20:10)
--- NOTE | 2018-10-23 14:46 | PN ---
Date/Time of Note Date/Time of Note DATE: 10/23/18 TIME: 14:45 Assessment/Plan VTE Prophylaxis Risk score (from Nsg)>0 risk: 6 SCD applied (from Nsg): Yes Pharmacological prophylaxis: heparin Lines/Catheters IV Catheter Type (from Nrsg): randy Urinary Cath still in place: No Assessment/Plan Hospital Course 67 yo with numerous comorbidities including dyslipidemia, IDDM, ESRD on HD and severe PVD who is also anticoagulated on Eliquis/Plavix,here with worsening malaise, found to have severe anemia/positive stool OB... also had NSTEMI Abdominal pain with nausea: - KUB ok. Supportive care NSTEMI/Multivessel coronary artery disease - s/p LHC 09/30 - s/p CABG 10/07 - Cautiously resume beta blockers. - Anticoag, antiplatelet per CT surgery - Continue statin. Severe acute symptomatic blood loss anemia -Improved with multiple transfusion. 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 -Wound care #Obesity with BMI 36.3 -Weight reduction advised. #Anemia of ESRD -on Epogen with hemodialysis #Debility secondary to comorbidities -Continue PT -ARU eval #Depression -Started Paxil DVT prophylaxis: SCDs PUD prophylaxis: Protonix DC planning: Plan is for venogram with vascular on 10/23, continue PT Result Diagram: 10/20/18 0543 10/20/18 0543 Results 24hrs Laboratory Tests Test 10/22/18 17:33 10/22/18 20:52 10/23/18 02:46 10/23/18 08:02 Bedside Glucose 208 198 178 168 Test 10/23/18 12:06 Bedside Glucose 181 Subjective 24 Hr Interval Summary Free Text/Dictation Venogram planned for today Still depressed affect Not wanting to eat or interact much Exam/Review of Systems Exam Vitals Vital Signs Date Temp Pulse Resp B/P (MAP) Pulse Ox O2 O2 Flow FiO2 Time Delivery Rate 10/23/18 58 12:26 10/23/18 98.1 16 163/78 94 11:40 (106) 10/23/18 Nasal 2.0 07:40 Cannula Intake and Output 10/22/18 10/22/18 10/23/18 1515:00 23:00 07:00 IntakeIntake Total 200 ml 400 ml OutputOutput Total 3600 ml BalanceBalance -3600 ml 200 ml 400 ml Constitutional: alert, oriented, well developed Psych: no complaints, nl mood/affect Head: normocephalic, atraumatic Eyes: nl conjunctiva, EOMI, nl lids, nl sclera, PERRL ENMT: nl external ears & nose, nl lips & teeth, nl nasal mucosa & septum Neck: supple, non-tender Respiratory: clear to auscultation, normal air movement Cardiovascular: regular rate and rhythm, nl pulses Gastrointestinal: soft, nl liver, spleen, non-tender Musculoskeletal: nl extremities to inspection, nl gait and stance Extremities: normal pulses 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: UPHOLSTERY CLEANER II-XII intact, nl mental status, nl speech, nl strength Skin: nl turgor; No rash or lesions Lymph: nl lymph nodes Results Results 24hrs Laboratory Tests Test 10/22/18 17:33 10/22/18 20:52 10/23/18 02:46 10/23/18 08:02 Bedside Glucose 208 198 178 168 Test 10/23/18 12:06 Bedside Glucose 181 Medications Medication Current Medications Oxycodone/ Acetaminophen (Percocet (5/ 325)) 1 tab Q3H PRN PO PAIN LEVEL 1-5 Last administered on 10/23/18at 02:41; Admin Dose 1 TAB; Start 10/07/18 at 21:00 Ondansetron HCl (Zofran Inj) 4 mg Q6H PRN IV NAUSEA AND/OR VOMITING Last administered on 10/21/18at 12:10; Admin Dose 4 MG; Start 10/07/18 at 21:00 Famotidine (Pepcid) 20 mg BID PO Last administered on 10/23/18at 08:50; Admin Dose 20 MG; Start 10/08/18 at 21:00 Acetaminophen (Tylenol Tab) 650 mg Q3H PRN PO ELEVATED TEMPERATURE Last administered on 10/19/18 21:48; Admin Dose 650 MG; Start 10/07/18 at 21:00 Atorvastatin Calcium (Lipitor) 40 mg HS PO Last administered on 10/22/18 20:49; Admin Dose 40 MG; Start 10/08/18 at 21:00 Insulin Aspart (Novolog Insulin Pen) NOVOLOG *MODERATE* ALGORITHM WITH MEALS BEDTIME SC Last administered on 10/22/18 21:19; Admin Dose 1 UNIT; Start 10/09/18 at 11:30 Glucose (Glutose) 15 gm Q15M PRN PO DECREASED GLUCOSE; Start 10/09/18 at 12:00 Glucose (Glutose) 22.5 gm Q15M PRN PO DECREASED GLUCOSE; Start 10/09/18 at 12:00 Dextrose (D50w Syringe) 25 ml Q15M PRN IV DECREASED GLUCOSE; Start 10/09/18 at 12:00 Dextrose (D50w Syringe) 50 ml Q15M PRN IV DECREASED GLUCOSE; Start 10/09/18 at 12:00 Glucagon (Glucagen) 1 mg Q15M PRN IM DECREASED GLUCOSE; Start 10/09/18 at 12:00 Glucose (Glutose) 15 gm Q15M PRN BUCCAL DECREASED GLUCOSE Last administered on 10/20/18 18:52; Admin Dose 15 GM; Start 10/09/18 at 12:00 Diagnostic Test (Pha) (Accu-Chek) 1 ea AC MEALS AND BEDTIME XX Last administered on 10/23/18 12:06; Admin Dose 1 EA; Start 10/09/18 at 11:00 Insulin Glargine (Lantus) 35 units DAILY@0830 SC Last administered on 10/23/18 08:20; Admin Dose 35 UNITS; Start 10/10/18 at 09:00 Insulin Aspart (Novolog Insulin Pen) 8 unit WITH MEALS SC Last administered on 10/18/18 17:19; Admin Dose 8 UNIT; Start 10/10/18 at 11:30 Apixaban (Eliquis) 5 mg BID PO Last administered on 10/19/18 21:03; Admin Dose 5 MG; Start 10/11/18 at 21:00; Status Hold Aspirin (Aspirin) 81 mg DAILY PO Last administered on 10/23/18 08:50; Admin Dose 81 MG; Start 10/13/18 at 09:00 Albumin Human 100 ml @ 100 mls/hr DURING DIALYSIS PRN IV BLOOD PRESSURE SUPPORT Last administered on 10/20/18 11:21; Admin Dose 100 MLS/HR; Start 10/13/18 at 11:30 Magnesium Hydroxide (Milk Of Mag) 30 ml DAILY PRN PO CONSTIPATION; Start 10/16/18 at 06:30 Paroxetine HCl (Paxil Cr) 25 mg DAILY PO Last administered on 10/23/18 08:50; Admin Dose 25 MG; Start 10/16/18 at 11:00 Furosemide (Lasix) 40 mg DAILY PO Last administered on 10/23/18 08:50; Admin Dose 40 MG; Start 10/20/18 at 09:00 Heparin Sodium (Porcine) (Heparin (1000 Units/ml)) 500 unit WITH DIALYSIS HE Last administered on 10/22/18 07:53; Admin Dose 500 UNIT; Start 10/20/18 at 10 :00 Heparin Sodium (Porcine) (Heparin (1000 Units/ml)) 1,500 unit WITH DIALYSIS HE Last administered on 10/20/18at 10:38; Admin Dose 1,500 UNIT; Start 10/20/18 at 10:00 Ondansetron HCl (Zofran Tab) 4 mg Q6H PRN PO NAUSEA AND/OR VOMITING; Start 10/20/18 at 17:30 Epoetin Jero-epbx (Retacrit (Esrd)) 10,000 unit MoWeFr@1700 SC ; Start 10/24/18 at 17:00 Vancomycin HCl 250 ml @ 125 mls/hr ONCE ONCE IVPB ; Start 10/23/18 at 15:00; Stop 10/23/18 at 16:59 PAUL LINDER MD October 23, 2018 14:45
--- NOTE | 2018-10-23 14:48 | PN ---
Date/Time of Note Date/Time of Note DATE: 10/23/18 TIME: 14:40 Assessment/Plan Lines/Catheters IV Catheter Type (from Nrs): randy Pierre in Place (from Nrs): No Assessment/Plan Chief Complaint/Hosp Course -Bilateral lower extremity atherosclerosis with left lower extremity with left lower extremity third toe gangrene: It seems that the patient's left lower e xtremity third toe has become dry gangrene and currently stable. Unfortunately his first and second toe have also become gangrene with no significant erythema. The patient's foot pain has gradually improved since we had seen him a month ago and followed him in the office over the past few weeks. From a vascular surgery standpoint, recommend no current intervention as the patient had episode of u pper gastrointestinal bleed and subsequently CABG. We are hoping that the patient's lower extremity atherosclerotic disease will not worsen during this period of time. Resume anticoagulation and antiplatelet therapy when cleared by multidisciplinary team. There is concern he may require an amputation should he not improve and develop worsening gangrene. This was discussed in detail with the family given his plethora of medical conditions -Bilateral lower extremity varicose veins and edema: The patient has component of mixed disease (venous insufficiency and arterial sufficiency). [facility], we recommend elevation of the bilateral lower extremities while at rest. No further intervention will be needed and can be followed as an outpatient in regards to venous insufficiency. -End-stage renal disease: At the moment the patient's left upper extremity fistula is nonfunctional. -S/P Right femoral Randy catheter - malfunction -S/P Left IJ Randy malfunction -S/P Left groin Randy catheter functional -It appears there's an IVC occlusion upon evaluation by our IR colleagues. I've been asked by our multidisciplinary team to re-evaluate. We will plan to perform a venogram with possible perm catheter placement if the IVC is patent. I have thoroughly spoken with the patient and at the bedside regarding our intervention and they understand the full scope of what is involved. Should he require further advanced intervention for dialysis access he may need to be t ransferred to a tertiary center secondary to limited resources. Our multidisciplinary team has agreed with the plan and involved in the decision. Certified swing manager present. They have asked for us to proceed with doing this intervention for them as they very much would like to have a perm catheter placed that is functional. I have reviewed all the information again at bedside with and . They understand that he is a high risk patient even for this procedure. Discussed risk and benefits alternatives. Risks including but not limited to bleeding, thrombosis, embolization myocardial infarction, , stroke, device malfunction they have agreed to proceed. Optimize vascular status (BP meds, diet, nutrition, exercise, sugar control). We will resume antiplatelet therapy once cleared from GI standpoint. Discussed findings, plan and management with the patient and at the bedside and they understand. Thank you for allowing us to partake in the care of your patient. Please call with any questions. A certified swing manager was present throughout the conversation. Subjective 24 Hr Interval Summary Poor appetite per his , he has no new complaints from a vascular standpoint Exam/Review of Systems Vital Signs Vitals Vital Signs Date Temp Pulse Resp B/P (MAP) Pulse Ox O2 O2 Flow FiO2 Time Delivery Rate 10/23/18 58 12:26 10/23/18 98.1 16 163/78 94 11:40 (106) 10/23/18 Nasal 2.0 07:40 Cannula Intake and Output 10/22/18 10/22/18 10/23/18 1515:00 23:00 07:00 IntakeIntake Total 200 ml 400 ml OutputOutput Total 3600 ml BalanceBalance -3600 ml 200 ml 400 ml Exam Free Text/Dictation GENERAL: Awake. PULMONARY: Coarse BS bilaterally, CARDIOVASCULAR: S1, S2 present. Dressing intact ABDOMEN: Soft, nontender, nondistended. Bowel sounds positive. Large truncal obesity. EXTREMITIES: Right lower extremity palpable femoral pulse, nonpalpable pedal pulse. Motor, sensory intact. Cap refill 3 to 4 seconds. Presence of varicose veins and large leg. Left lower extremity palpable femoral pulse, nonpalpable pedal pulse. Motor, sensory intact. Cap refill 3 to 4 seconds. Third toe gangrene, First and second toe with previous bluish discoloration and formation of gangrene now. Heel gangrene developing. groin catheter intact Varicose veins and edema of the left lower extremity with presence of mild lipodermatosclerosis. Left upper extremity: Palpable brachial pulse, motor/sensory intact, fistula with bruit and thrill not present Results Result Diagram: 10/20/18 0543 10/20/18 0543 VANIA PEREYRA MD October 23, 2018 14:48
[2018-10-23] MEDS ORDERED: VANCOMYCIN 1 GM 250 ML IVPB ONE (15:00)
--- NOTE | 2018-10-23 15:21 | HPN ---
Date/Time of Note Date/Time of Note DATE: 10/23/18 TIME: 15:21 Interval H&P Admission Note Pt. seen H&P reviewed: No system changes VANIA PEREYRA MD October 23, 2018 15:21
--- NOTE | 2018-10-23 15:21 | SIPON ---
Date/Time of Note Date/Time of Note DATE: 10/23/18 TIME: 15:21 Operative Report Preoperative Diagnosis End-stage renal disease and central stenosis Postoperative Diagnosis Same Operation/Procedure Performed Left lower extremity venogram, IVC venogram, permacatheter placement Surgeon see signature line metallurgical laboratory assistant None Anesthesia: other (Vocal) Estimated blood loss: minimal Transfusion Required none Specimen None Grafts/Implants none Complications none VANIA PEREYRA MD October 23, 2018 15:21
[2018-10-23] MEDS: ATORVASTATIN 40 MG TAB PO SCH (20:10)
--- NOTE | 2018-10-23 21:36 | CONS ---
Assessment/Plan Assessment/Plan Assessment/Plan (Daily) 1. acute Hyperkalemia due to GI bleeding- resolved 2.Acute fluid overload- now resolved 3. acute GI bleeding causing acute blood loss anemia- S/p Status post EGD/colonoscopy 09/27/19 -Anastomosis ulcer -Normal colonoscopy 4. Severe Anemia with Hb 5.8 on admission s/p 5 U PRBC transfusion for GI ble eding during this admission - ot also has anemia of ESRD 5. H/O HTN 6. H/O peripherla vascular disease 7. ESRD on HD -follow up at [facility] for scheduled HD on MWF 8. Acute NSTEMI s/p LHC on 09/30/18 that showed 3 V CAD- s/p CABG on 10/07/18 Plan: s/p CABG on 10/07/18-s/p left groin Madi, - HD ordered for Saturday, , then, will continue HD on MWF pt extensive IVC thrombosis, IR said they can not do , D/w Dr. Velasco -Plan is to convert left groin Madi to permacath if possible- Eliquis has been stopped for now d/w family about very poor vascular access Continue lasix to 40mg Po daily Epogen 43249 units SQ MWF one dose today will follow up Consultation Date/Type/Reason Admit Date/Time September 24, 2018 at 08:08 Initial Consult Date 09/24/18 Type of Consult NEPHROLOGY Date/Time of Note DATE: 10/23/18 TIME: 21:36 Exam/Review of Systems Exam Vitals Vital Signs Date Temp Pulse Resp B/P (MAP) Pulse Ox O2 O2 Flow FiO2 Time Delivery Rate 10/23/18 97.8 73 16 127/53 97 19:09 (77) 10/23/18 2.0 16:55 10/23/18 Nasal 07:40 Cannula Intake and Output 10/22/18 10/22/18 10/23/18 1515:00 23:00 07:00 IntakeIntake Total 200 ml 400 ml OutputOutput Total 3600 ml BalanceBalance -3600 ml 200 ml 400 ml Exam Constitutional: alert, awake no acute distress Neck: supple, no JVD, no LAD Respiratory: crackles/rales, diminished breath sounds Cardiovascular: regular rate and rhythm, nl pulses, Scar healthy Gastrointestinal: soft, non-tender Musculoskeletal: swelling Extremities: 1+ pitting edema, left groin permacath 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: awake, alert, non focal Results Result Diagram: 10/20/18 0543 10/20/18 0543 Results 24hrs Laboratory Tests Test 10/23/18 02:46 10/23/18 08:02 10/23/18 12:06 10/23/18 17:14 Bedside Glucose 178 168 181 142 Test 10/23/18 20:09 Bedside Glucose 139 Medications Medication Current Medications Oxycodone/ Acetaminophen (Percocet (5/ 325)) 1 tab Q3H PRN PO PAIN LEVEL 1-5 Last administered on 10/23/18 02:41; Admin Dose 1 TAB; Start 10/07/18 at 21:00 Ondansetron HCl (Zofran Inj) 4 mg Q6H PRN IV NAUSEA AND/OR VOMITING Last administered on 10/21/18 12:10; Admin Dose 4 MG; Start 10/07/18 at 21:00 Famotidine (Pepcid) 20 mg BID PO Last administered on 10/23/18at 20:10; Admin Dose 20 MG; Start 10/08/18 at 21:00 Acetaminophen (Tylenol Tab) 650 mg Q3H PRN PO ELEVATED TEMPERATURE Last administered on 10/19/18 21:48; Admin Dose 650 MG; Start 10/07/18 at 21:00 Atorvastatin Calcium (Lipitor) 40 mg HS PO Last administered on 10/23/18at 20:10; Admin Dose 40 MG; Start 10/08/18 at 21:00 Insulin Aspart (Novolog Insulin Pen) NOVOLOG *MODERATE* ALGORITHM WITH MEALS BEDTIME SC Last administered on 10/22/18 21:19; Admin Dose 1 UNIT; Start 10/09/18 at 11:30 Glucose (Glutose) 15 gm Q15M PRN PO DECREASED GLUCOSE; Start 10/09/18 at 12:00 Glucose (Glutose) 22.5 gm Q15M PRN PO DECREASED GLUCOSE; Start 10/09/18 at 12:00 Dextrose (D50w Syringe) 25 ml Q15M PRN IV DECREASED GLUCOSE; Start 10/09/18 at 12:00 Dextrose (D50w Syringe) 50 ml Q15M PRN IV DECREASED GLUCOSE; Start 10/09/18 at 12:00 Glucagon (Glucagen) 1 mg Q15M PRN IM DECREASED GLUCOSE; Start 10/09/18 at 12:00 Glucose (Glutose) 15 gm Q15M PRN BUCCAL DECREASED GLUCOSE Last administered on 10/20/18 18:52; Admin Dose 15 GM; Start 10/09/18 at 12:00 Diagnostic Test (Pha) (Accu-Chek) 1 ea AC MEALS AND BEDTIME XX Last administered on 10/23/18 21:27; Admin Dose 1 EA; Start 10/09/18 at 11:00 Insulin Glargine (Lantus) 35 units DAILY@0830 SC Last administered on 10/23/18 08:20; Admin Dose 35 UNITS; Start 10/10/18 at 09:00 Insulin Aspart (Novolog Insulin Pen) 8 unit WITH MEALS SC Last administered on 10/18/18 17:19; Admin Dose 8 UNIT; Start 10/10/18 at 11:30 Apixaban (Eliquis) 5 mg BID PO Last administered on 10/19/18 21:03; Admin Dose 5 MG; Start 10/11/18 at 21:00; Status Hold Aspirin (Aspirin) 81 mg DAILY PO Last administered on 10/23/18 08:50; Admin Dose 81 MG; Start 10/13/18 at 09:00 Albumin Human 100 ml @ 100 mls/hr DURING DIALYSIS PRN IV BLOOD PRESSURE SUPPORT Last administered on 10/20/18 11:21; Admin Dose 100 MLS/HR; Start 10/13/18 at 11:30 Magnesium Hydroxide (Milk Of Mag) 30 ml DAILY PRN PO CONSTIPATION; Start at 06:30 Paroxetine HCl (Paxil Cr) 25 mg DAILY PO Last administered on 10/23/18 08:50; Admin Dose 25 MG; Start 10/16/18 at 11:00 Furosemide (Lasix) 40 mg DAILY PO Last administered on 10/23/18 08:50; Admin Dose 40 MG; Start 10/20/18 at 09:00 Heparin Sodium (Porcine) (Heparin (1000 Units/ml)) 500 unit WITH DIALYSIS HE Last administered on 10/22/18 07:53; Admin Dose 500 UNIT; Start 10/20/18 at 10:00 Heparin Sodium (Porcine) (Heparin (1000 Units/ml)) 1,500 unit WITH DIALYSIS HE Last administered on 5/27/19at 10:38; Admin Dose 1,500 UNIT; Start 10/20/18 at 10:00 Ondansetron HCl (Zofran Tab) 4 mg Q6H PRN PO NAUSEA AND/OR VOMITING; Start 10/20/18 at 17:30 Epoetin Jero-epbx (Retacrit (Esrd)) 10,000 unit MoWeFr@1700 SC ; Start 10/24/18 at 17:00 RAQUEL MCDOWELL MD October 23, 2018 21:36
[2018-10-24] VITALS (25 sets, daily range): BP systolic 101–162; BP diastolic 46–76; PULSE 53–106; RESP 16–18
[2018-10-24] MEDS: ACCU-CHEK XX SCH ×4 (07:00→21:00)
[2018-10-24] MEDS: INSULIN ASPART [NOVOLOG] 3 ML PEN SC SCH ×8 (07:49→21:00)
[2018-10-24] MEDS: PAROXETINE (CR) 12.5 MG TAB PO SCH (08:28)
[2018-10-24] MEDS: FAMOTIDINE 20 MG TAB PO SCH ×2 (08:29→21:06)
[2018-10-24] MEDS: ASPIRIN 81 MG TAB PO SCH (08:29)
[2018-10-24] MEDS: FUROSEMIDE 40 MG TAB PO SCH (08:29)
--- NOTE | 2018-10-24 08:31 | CONS ---
Assessment/Plan Assessment/Plan Assessment/Plan (Daily) 1. acute Hyperkalemia due to GI bleeding- resolved 2.Acute fluid overload- now resolved 3. acute GI bleeding causing acute blood loss anemia- S/p Status post EGD/colonoscopy 09/27/19 -Anastomosis ulcer -Normal colonoscopy 4. Severe Anemia with Hb 5.8 on admission s/p 5 U PRBC transfusion for GI ble eding during this admission - ot also has anemia of ESRD 5. H/O HTN 6. H/O peripherla vascular disease 7. ESRD on HD -follow up at [facility] for scheduled HD on MWF 8. Acute NSTEMI s/p LHC on 09/30/18 that showed 3 V CAD- s/p CABG on 10/07/18 Plan: s/p CABG on 10/07/18-s/p left groin Madi, - Plan for HD today and tomorrow( saturday - extra HD) , then, will continue HD on MWF pt extensive IVC thrombosis, s/p Left groin permacath placement, will try to use it today and wait one more day before resuming eliquis Continue lasix to 40mg Po daily Epogen 76990 units SQ MWF will follow up Consultation Date/Type/Reason Admit Date/Time September 24, 2018 at 08:08 Initial Consult Date 09/24/18 Type of Consult NEPHROLOGY Date/Time of Note DATE: 10/24/18 TIME: 08:31 24 HR Interval Summary Free Text/Dictation s/p Permcath in left groin, BP stable, plan for HD today Exam/Review of Systems Exam Vitals Vital Signs Date Temp Pulse Resp B/P (MAP) Pulse Ox O2 O2 Flow FiO2 Time Delivery Rate 10/24/18 98.0 78 17 134/59 91 07:43 (84) 10/24/18 Room Air 03:33 10/24/18 2.0 01:09 Intake and Output 10/23/18 10/23/18 10/24/18 1515:00 23:00 07:00 IntakeIntake Total 0 ml 350 ml OutputOutput Total 800 ml BalanceBalance 0 ml -450 ml Exam Constitutional: alert, awake no acute distress Neck: supple, no JVD, no LAD Respiratory: crackles/rales, diminished breath sounds Cardiovascular: regular rate and rhythm, nl pulses, Scar healthy Gastrointestinal: soft, non-tender Musculoskeletal: swelling Extremities: 1+ pitting edema, left groin permacath 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: awake, alert, non focal Results Result Diagram: 10/20/18 0543 10/20/18 0543 Results 24hrs Laboratory Tests Test 10/23/18 12:06 10/23/18 17:14 10/23/18 20:09 10/24/18 07:41 Bedside Glucose 181 142 139 112 Medications Medication Current Medications Oxycodone/ Acetaminophen (Percocet (5/ 325)) 1 tab Q3H PRN PO PAIN LEVEL 1-5 Last administered on 10/23/18 02:41; Admin Dose 1 TAB; Start 10/07/18 at 21:00 Ondansetron HCl (Zofran Inj) 4 mg Q6H PRN IV NAUSEA AND/OR VOMITING Last administered on 10/21/18 12:10; Admin Dose 4 MG; Start 10/07/18 at 21:00 Famotidine (Pepcid) 20 mg BID PO Last administered on 10/23/18 20:10; Admin Dose 20 MG; Start 10/08/18 at 21:00 Acetaminophen (Tylenol Tab) 650 mg Q3H PRN PO ELEVATED TEMPERATURE Last administered on 10/19/18 21:48; Admin Dose 650 MG; Start 10/07/18 at 21:00 Atorvastatin Calcium (Lipitor) 40 mg HS PO Last administered on 10/23/18 20:10; Admin Dose 40 MG; Start 10/08/18 at 21:00 Insulin Aspart (Novolog Insulin Pen) NOVOLOG *MODERATE* ALGORITHM WITH MEALS BEDTIME SC Last administered on 10/22/18 21:19; Admin Dose 1 UNIT; Start 10/09/18 at 11:30 Glucose (Glutose) 15 gm Q15M PRN PO DECREASED GLUCOSE; Start 10/09/18 at 12:00 Glucose (Glutose) 22.5 gm Q15M PRN PO DECREASED GLUCOSE; Start 10/09/18 at 12:00 Dextrose (D50w Syringe) 25 ml Q15M PRN IV DECREASED GLUCOSE; Start 10/09/18 at 12:00 Dextrose (D50w Syringe) 50 ml Q15M PRN IV DECREASED GLUCOSE; Start 10/09/18 at 12:00 Glucagon (Glucagen) 1 mg Q15M PRN IM DECREASED GLUCOSE; Start 10/09/18 at 12:00 Glucose (Glutose) 15 gm Q15M PRN BUCCAL DECREASED GLUCOSE Last administered on 10/20/18 18:52; Admin Dose 15 GM; Start 10/09/18 at 12:00 Diagnostic Test (Pha) (Accu-Chek) 1 ea AC MEALS AND BEDTIME XX Last administered on 10/23/18 21:27; Admin Dose 1 EA; Start 10/09/18 at 11:00 Insulin Glargine (Lantus) 35 units DAILY@0830 SC Last administered on 10/23/18 08:20; Admin Dose 35 UNITS; Start 10/10/18 at 09:00 Insulin Aspart (Novolog Insulin Pen) 8 unit WITH MEALS SC Last administered on 10/18/18 17:19; Admin Dose 8 UNIT; Start 10/10/18 at 11:30 Apixaban (Eliquis) 5 mg BID PO Last administered on 10/19/18 21:03; Admin Dose 5 MG; Start 10/11/18 at 21:00; Status Hold Aspirin (Aspirin) 81 mg DAILY PO Last administered on 10/23/18 08:50; Admin Dose 81 MG; Start 10/13/18 at 09:00 Albumin Human 100 ml @ 100 mls/hr DURING DIALYSIS PRN IV BLOOD PRESSURE SUPPORT Last administered on 10/20/18 11:21; Admin Dose 100 MLS/HR; Start 10/13/18 at 11:30 Magnesium Hydroxide (Milk Of Mag) 30 ml DAILY PRN PO CONSTIPATION; Start at 06:30 Paroxetine HCl (Paxil Cr) 25 mg DAILY PO Last administered on 10/23/18 08:50; Admin Dose 25 MG; Start 10/16/18 at 11:00 Furosemide (Lasix) 40 mg DAILY PO Last administered on 10/23/18 08:50; Admin Dose 40 MG; Start 10/20/18 at 09:00 Heparin Sodium (Porcine) (Heparin (1000 Units/ml)) 500 unit WITH DIALYSIS HE Last administered on 10/22/18 07:53; Admin Dose 500 UNIT; Start 10/20/18 at 10:00 Heparin Sodium (Porcine) (Heparin (1000 Units/ml)) 1,500 unit WITH DIALYSIS HE Last administered on 10/20/18 10:38; Admin Dose 1,500 UNIT; Start 10/20/18 at 10:00 Ondansetron HCl (Zofran Tab) 4 mg Q6H PRN PO NAUSEA AND/OR VOMITING; Start 10/20/18 at 17:30 Epoetin Jero-epbx (Retacrit (Esrd)) 10,000 unit MoWeFr@1700 SC ; Start 10/24/18 at 17:00 RAQUEL MCDOWELL MD October 24, 2018 08:31
[2018-10-24] MEDS: BALSAM PERU/CASTOR OIL 60 GM TUBE TOP SCH (08:32)
[2018-10-24] MEDS: INSULIN GLARGINE [LANTus] (100 UNITS/ML) SYG SC SCH (08:38)
[2018-10-24] MEDS ORDERED: APIXABAN 5 MG TABLET PO SCH (09:00)
[2018-10-24] MEDS: GUAIFENESIN/DM 5ML CUP PO PRN (11:17)
[2018-10-24] MEDS ORDERED: ALTEPLASE (CATHFLO) 2 MG INJ CATHETER ONE (14:30)
--- NOTE | 2018-10-24 14:43 | PN ---
Date/Time of Note Date/Time of Note DATE: 10/24/18 TIME: 14:42 Assessment/Plan VTE Prophylaxis Risk score (from Nsg)>0 risk: 6 SCD applied (from Ns): Yes Pharmacological prophylaxis: heparin Lines/Catheters IV Catheter Type (from Nrsg): randy catheter Urinary Cath still in place: No Assessment/Plan Hospital Course 67 yo with numerous comorbidities including dyslipidemia, IDDM, ESRD on HD and severe PVD who is also anticoagulated on Eliquis/Plavix,here with worsening malaise, found to have severe anemia/positive stool OB... also had NSTEMI ESRD: - Permacath placed - HD per Dr Tobar IVC clot: - Eliquis at discharge NSTEMI/Multivessel coronary artery disease - s/p LHC 09/30 - s/p CABG 10/07 - Cautiously resume beta blockers. - Anticoag, antiplatelet per CT surgery - Continue statin. Severe acute symptomatic blood loss anemia -Improved with multiple transfusion. 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 -Wound care #Obesity with BMI 36.3 -Weight reduction advised. #Anemia of ESRD -on Epogen with hemodialysis #Debility secondary to comorbidities -Continue PT -ARU eval #Depression -Started Paxil DVT prophylaxis: SCDs PUD prophylaxis: Protonix DC planning: Plan is for venogram with vascular on 10/23, continue PT Result Diagram: 10/20/18 0543 10/20/18 0543 Results 24hrs Laboratory Tests Test 10/23/18 17:14 10/23/18 20:09 10/24/18 07:41 10/24/18 09:34 Bedside Glucose 142 139 112 126 Test 10/24/18 10:34 10/24/18 11:26 Bedside Glucose 150 140 Subjective 24 Hr Interval Summary Free Text/Dictation Had a permacath placed Still feels unwell, nauseous Exam/Review of Systems Exam Vitals Vital Signs Date Temp Pulse Resp B/P (MAP) Pulse Ox O2 O2 Flow FiO2 Time Delivery Rate 10/24/18 68 12:59 10/24/18 98.0 17 135/57 95 11:22 (83) 10/24/18 2.0 08:48 10/24/18 Nasal 08:00 Cannula Intake and Output 10/23/18 10/23/18 10/24/18 1515:00 23:00 07:00 IntakeIntake Total 0 ml 350 ml OutputOutput Total 800 ml BalanceBalance 0 ml -450 ml Constitutional: alert, oriented, well developed Psych: no complaints, nl mood/affect Head: normocephalic, atraumatic Eyes: nl conjunctiva, EOMI, nl lids, nl sclera, PERRL ENMT: nl external ears & nose, nl lips & teeth, nl nasal mucosa & septum Neck: supple, non-tender Respiratory: clear to auscultation, normal air movement Cardiovascular: regular rate and rhythm, nl pulses Gastrointestinal: soft, nl liver, spleen, non-tender Musculoskeletal: nl extremities to inspection, nl gait and stance Extremities: normal pulses 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: DOCUMENT EXAMINER II-XII intact, nl mental status, nl speech, nl strength Skin: nl turgor; No rash or lesions Lymph: nl lymph nodes Results Results 24hrs Laboratory Tests Test 10/23/18 17:14 10/23/18 20:09 10/24/18 07:41 10/24/18 09:34 Bedside Glucose 142 139 112 126 Test 10/24/18 10:34 10/24/18 11:26 Bedside Glucose 150 140 Medications Medication Current Medications Oxycodone/ Acetaminophen (Percocet (5/ 325)) 1 tab Q3H PRN PO PAIN LEVEL 1-5 Last administered on 10/23/18at 02:41; Admin Dose 1 TAB; Start 10/07/18 at 21:00 Ondansetron HCl (Zofran Inj) 4 mg Q6H PRN IV NAUSEA AND/OR VOMITING Last administered on 10/21/18at 12:10; Admin Dose 4 MG; Start 10/07/18 at 21:00 Famotidine (Pepcid) 20 mg BID PO Last administered on 10/24/18at 08:29; Admin Dose 20 MG; Start 10/08/18 at 21:00 Acetaminophen (Tylenol Tab) 650 mg Q3H PRN PO ELEVATED TEMPERATURE Last administered on 10/19/18 21:48; Admin Dose 650 MG; Start 10/07/18 at 21:00 Atorvastatin Calcium (Lipitor) 40 mg HS PO Last administered on 10/23/18 20:10; Admin Dose 40 MG; Start 10/08/18 at 21:00 Insulin Aspart (Novolog Insulin Pen) NOVOLOG *MODERATE* ALGORITHM WITH MEALS BE DTIME SC Last administered on 10/22/18 21:19; Admin Dose 1 UNIT; Start 10/09/18 at 11:30 Glucose (Glutose) 15 gm Q15M PRN PO DECREASED GLUCOSE; Start 10/09/18 at 12:00 Glucose (Glutose) 22.5 gm Q15M PRN PO DECREASED GLUCOSE; Start 10/09/18 at 12:00 Dextrose (D50w Syringe) 25 ml Q15M PRN IV DECREASED GLUCOSE; Start 10/09/18 at 12:00 Dextrose (D50w Syringe) 50 ml Q15M PRN IV DECREASED GLUCOSE; Start 10/09/18 at 12:00 Glucagon (Glucagen) 1 mg Q15M PRN IM DECREASED GLUCOSE; Start 10/09/18 at 12:00 Glucose (Glutose) 15 gm Q15M PRN BUCCAL DECREASED GLUCOSE Last administered on 10/20/18 18:52; Admin Dose 15 GM; Start 10/09/18 at 12:00 Diagnostic Test (Pha) (Accu-Chek) 1 ea AC MEALS AND BEDTIME XX Last administered on 10/24/18 11:26; Admin Dose 1 EA; Start 10/09/18 at 11:00 Insulin Glargine (Lantus) 35 units DAILY@0830 SC Last administered on 10/24/18 08:38; Admin Dose 35 UNITS; Start 10/10/18 at 09:00 Insulin Aspart (Novolog Insulin Pen) 8 unit WITH MEALS SC Last administered on 10/18/18 17:19; Admin Dose 8 UNIT; Start 10/10/18 at 11:30 Apixaban (Eliquis) 5 mg BID PO Last administered on 10/19/18 21:03; Admin Dose 5 MG; Start 10/11/18 at 21:00; Status Hold Aspirin (Aspirin) 81 mg DAILY PO Last administered on 10/24/18 08:29; Admin Dose 81 MG; Start 10/13/18 at 09:00 Albumin Human 100 ml @ 100 mls/hr DURING DIALYSIS PRN IV BLOOD PRESSURE SUPPORT Last administered on 10/20/18 11:21; Admin Dose 100 MLS/HR; Start 10/13/18 at 11:30 Magnesium Hydroxide (Milk Of Mag) 30 ml DAILY PRN PO CONSTIPATION; Start 10/16/18 at 06:30 Paroxetine HCl (Paxil Cr) 25 mg DAILY PO Last administered on 10/24/18 08:28; Admin Dose 25 MG; Start 10/16/18 at 11:00 Furosemide (Lasix) 40 mg DAILY PO Last administered on 10/24/18 08:29; Admin Dose 40 MG; Start 10/20/18 at 09:00 Heparin Sodium (Porcine) (Heparin (1000 Units/ml)) 500 unit WITH DIALYSIS HE Last administered on 10/22/18 07:53; Admin Dose 500 UNIT; Start 10/20/18 at 10:00 Heparin Sodium (Porcine) (Heparin (1000 Units/ml)) 1,500 unit WITH DIALYSIS HE Last administered on 10/20/18 10:38; Admin Dose 1,500 UNIT; Start 10/20/18 at 10:00 Ondansetron HCl (Zofran Tab) 4 mg Q6H PRN PO NAUSEA AND/OR VOMITING; Start 10/20/18 at 17:30 Epoetin Jero-epbx (Retacrit (Esrd)) 10,000 unit MoWeFr@1700 SC ; Start 10/24/18 at 17:00 Guaifenesin/ Dextromethorphan (Robitussin Dm Liquid Cup) 10 ml Q4H PRN PO cough Last administered on 10/24/18 11:17; Admin Dose 10 ML; Start 10/24/18 at 11:00 PAUL LINDER MD October 24, 2018 14:43
[2018-10-24] MEDS: HEPARIN 1000 UNITS/ML 10 ML INJ HE SCH (15:10)
[2018-10-24] MEDS: EPOETIN ALFA-EPBX (ESRD) 10,000 UNIT/ML VIAL SC SCH (17:01)
--- NOTE | 2018-10-24 19:51 | OPR ---
DATE OF OPERATION: 10/23/2018 SURGEON: Rod Mejia MD PREOPERATIVE DIAGNOSIS: End-stage renal disease, central occlusion. POSTOPERATIVE DIAGNOSIS: End-stage renal disease, central occlusion, iliocaval occlusion. PROCEDURES: 1. Left lower extremity venogram. 2. IVC venogram. 3. Left common femoral vein Perm catheter placement. ANESTHESIA: Local. ESTIMATED BLOOD LOSS: Minimal. COMPLICATIONS: None. HEPARIN: As recorded. CONTRAST: As recorded. ACCESS: Left common femoral vein. CLOSURE: 3-0 nylon sutures. SEDATION: None. INDICATIONS: This is a 67-year-old gentleman who presented with plethora of medical conditions who p resented with end-stage renal disease and had a malfunction of left upper extremity fistula. Multipl e attempts were made to place upper chest wall catheter placements. However secondary to a central s tenosis and occlusion, were unsuccessful. The patient had also underwent a right femoral vein attemp t which was also unsuccessful. The patient had a temporary left femoral vein dialysis catheter place d and was functional and now, the patient has been coming along well from the standpoint of his cardi ovascular status in which he had done recently underwent CABG and requires a Perm catheter placement. Therefore, the decision was made to perform a venogram and evaluate if the patient is able to have a Perm catheter placed. Risks and benefits and alternatives were discussed with the patient and . They understood all that is involved and agreed to proceed. was able to repeat all the infor mation back to me and a certified information assurance engineer was present for further evaluation. Risks including but not limited to bleeding, thrombosis, embolization, myocardial infarction, , stroke, device malf unction, infection, nephrotoxicity and the patient has agreed to proceed. DESCRIPTION OF PROCEDURE: The patient was brought into the operating room table, placed in the angio suite, placed in supine position. The incision was not given secondary to his multiple comorbiditie s. The left groin was then shaved, prepped and draped in usual standard sterile fashion. Timeout an d appropriate site were marked and confirmed. Local incision was infiltrated in the region of the le ft common femoral vein around Madi catheter. The upper anterolateral aspect of the thigh was also anesthetized with 1% lidocaine. At this point, passing a stiff wire via the venous port of the Luzmaria ton catheter, a wire was placed in the distal aspect and proximal aspect of the common iliac vein. A t this point, the catheter was pulled back and a 7-Lao sheath was placed in the common femoral vei n. At this point, a left lower extremity venogram was performed and also IVC venogram was performed. 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 There was very large collateralization that was identified as well. At this point, decision was made that patient would not be able to have extended length of a Perm catheter. However , a 19 cm catheter would possibly be workable for him and therefore sheath was removed and using a 19 cm PermCath was decided to be used at this point. Our catheter was tunneled via a stab incision chiquis t was made in the arterial aspect of the upper thigh. It was tunneled towards the puncture site. At this point, our Perm catheter was pulled through and the peelaway sheath was then placed over the st iff wire in the left common femoral vein. At this point, the inner dilator and wire were removed and the Perm catheter was placed in satisfactory position through the peelaway sheath which was also rem charanjit as well. At this point, we performed a venogram which identified a Perm catheter in adequate po sition, adequate flushing and draw back of the catheter was performed which was adequate. Heparin wa s placed in each port. The catheter was then secured with a 3-0 nylon suture. Sterile dressing was applied. The patient tolerated procedure well and was taken back to his room. The patient may undergo dialysis via the new Perm catheter replacement. Dictated By: ROD SANTIAGO/FREDY Conf#: [id number] DID#: [id number] CC: RAQUEL MCDOWELL MD; PAUL LINDER MD; CAREN BULL MD;*EndCC*
[2018-10-24] MEDS: ATORVASTATIN 40 MG TAB PO SCH (21:06)
[2018-10-25] VITALS (22 sets, daily range): BP systolic 89–134; BP diastolic 39–72; PULSE 54–91; RESP 16–20
[2018-10-25] MEDS: OXYCODONE/ACETAMINOPHEN (5/325) TAB PO PRN (01:03)
[2018-10-25] MEDS: ACCU-CHEK XX SCH ×4 (07:00→21:00)
[2018-10-25] MEDS: INSULIN ASPART [NOVOLOG] 3 ML PEN SC SCH ×7 (08:00→21:00)
[2018-10-25] MEDS: PAROXETINE (CR) 12.5 MG TAB PO SCH (09:08)
[2018-10-25] MEDS: ASPIRIN 81 MG TAB PO SCH (09:08)
[2018-10-25] MEDS: FAMOTIDINE 20 MG TAB PO SCH (09:10)
[2018-10-25] MEDS: FUROSEMIDE 40 MG TAB PO SCH (09:10)
[2018-10-25] MEDS ORDERED: LOPERAMIDE 2 MG CAP PO ONE (14:00)
[2018-10-25] MEDS: GUAIFENESIN/DM 5ML CUP PO PRN (15:49)
--- NOTE | 2018-10-25 16:13 | CONS ---
Assessment/Plan Assessment/Plan Assessment/Plan (Daily) 1. acute Hyperkalemia due to GI bleeding- resolved 2.Acute fluid overload- now resolved 3. acute GI bleeding causing acute blood loss anemia- S/p Status post EGD/colonoscopy 09/27/19 -Anastomosis ulcer -Normal colonoscopy 4. Severe Anemia with Hb 5.8 on admission s/p 5 U PRBC transfusion for GI bleeding during this admission - ot also has anemia of ESRD 5. H/O HTN 6. H/O peripherla vascular disease 7. ESRD on HD -follow up at [facility] for scheduled HD on MWF 8. Acute NSTEMI s/p LHC on 09/30/18 that showed 3 V CAD- s/p CABG on 10/07/18 Plan: s/p CABG on 10/07/18-s/p left groin Madi, - HD on Saturday - extra HD , then, will continue HD on MWF pt extensive IVC thrombosis, s/p Left groin permacath placement, used fro HD- dw Dr Tobar regarding resuming eliquis Continue lasix to 40mg Po daily Epogen [id number] units SQ MWF will follow up Patient seen in collaboration with Dr Tobar/dilma staff Consultation Date/Type/Reason Admit Date/Time September 24, 2018 at 08:08 Initial Consult Date 09/24/18 Type of Consult NEPHRO Date/Time of Note DATE: 10/25/18 TIME: 16:12 Exam/Review of Systems Exam Vitals Vital Signs Date Temp Pulse Resp B/P (MAP) Pulse Ox O2 O2 Flow FiO2 Time Delivery Rate 10/25/18 98.1 73 20 108/50 100 Nasal 15:20 (69) Cannula 10/25/18 2.0 08:00 Intake and Output 10/24/18 10/24/18 10/25/18 1515:00 23:00 07:00 IntakeIntake Total 100 ml 350 ml 240 ml OutputOutput Total 5600 ml 0 ml BalanceBalance 100 ml -5250 ml 240 ml Results Results 24hrs Laboratory Tests Test 10/24/18 16:57 10/24/18 20:47 10/25/18 07:52 10/25/18 09:06 Bedside Glucose 83 106 59 L 98 Test 10/25/18 11:59 Bedside Glucose 159 Medications Medication Current Medications Oxycodone/ Acetaminophen (Percocet (5/ 325)) 1 tab Q3H PRN PO PAIN LEVEL 1-5 Last administered on 10/25/18 01:03; Admin Dose 1 TAB; Start 10/07/18 at 21:00 Ondansetron HCl (Zofran Inj) 4 mg Q6H PRN IV NAUSEA AND/OR VOMITING Last administered on 10/21/18 12:10; Admin Dose 4 MG; Start 10/07/18 at 21:00 Famotidine (Pepcid) 20 mg BID PO Last administered on 10/25/18 09:10; Admin Dose 20 MG; Start 10/08/18 at 21:00 Acetaminophen (Tylenol Tab) 650 mg Q3H PRN PO ELEVATED TEMPERATURE Last administered on 10/19/18 21:48; Admin Dose 650 MG; Start 10/07/18 at 21:00 Atorvastatin Calcium (Lipitor) 40 mg HS PO Last administered on 10/24/18 21:06; Admin Dose 40 MG; Start 10/08/18 at 21:00 Insulin Aspart (Novolog Insulin Pen) NOVOLOG *MODERATE* ALGORITHM WITH MEALS BEDTIME SC Last administered on 10/25/18 12:33; Admin Dose 2 UNIT; Start 10/09/18 at 11:30 Glucose (Glutose) 15 gm Q15M PRN PO DECREASED GLUCOSE; Start 10/09/18 at 12:00 Glucose (Glutose) 22.5 gm Q15M PRN PO DECREASED GLUCOSE; Start 10/09/18 at 12:00 Dextrose (D50w Syringe) 25 ml Q15M PRN IV DECREASED GLUCOSE; Start 10/09/18 at 12:00 Dextrose (D50w Syringe) 50 ml Q15M PRN IV DECREASED GLUCOSE; Start 10/09/18 at 12:00 Glucagon (Glucagen) 1 mg Q15M PRN IM DECREASED GLUCOSE; Start 10/09/18 at 12:00 Glucose (Glutose) 15 gm Q15M PRN BUCCAL DECREASED GLUCOSE Last administered on 10/20/18 18:52; Admin Dose 15 GM; Start 10/09/18 at 12:00 Diagnostic Test (Pha) (Accu-Chek) 1 ea AC MEALS AND BEDTIME XX Last administered on 10/24/18 16:59; Admin Dose 1 EA; Start 10/09/18 at 11:00 Insulin Aspart (Novolog Insulin Pen) 8 unit WITH MEALS SC Last administered on 10/18/18 17:19; Admin Dose 8 UNIT; Start 10/10/18 at 11:30 Apixaban (Eliquis) 5 mg BID PO Last administered on 10/19/18 21:03; Admin Dose 5 MG; Start 10/11/18 at 21:00; Status Hold Aspirin (Aspirin) 81 mg DAILY PO Last administered on 10/25/18 09:08; Admin Dose 81 MG; Start 10/13/18 at 09:00 Albumin Human 100 ml @ 100 mls/hr DURING DIALYSIS PRN IV BLOOD PRESSURE SUPPORT Last administered on 10/20/18 11:21; Admin Dose 100 MLS/HR; Start 10/13/18 at 11:30 Magnesium Hydroxide (Milk Of Mag) 30 ml DAILY PRN PO CONSTIPATION; Start 10/16/18 at 06:30 Paroxetine HCl (Paxil Cr) 25 mg DAILY PO Last administered on 10/25/18 09:08; Admin Dose 25 MG; Start 10/16/18 at 11:00 Furosemide (Lasix) 40 mg DAILY PO Last administered on 10/25/18 09:10; Admin Dose 40 MG; Start 10/20/18 at 09:00 Heparin Sodium (Porcine) (Heparin (1000 Units/ml)) 500 unit WITH DIALYSIS HE Last administered on 10/22/18 07:53; Admin Dose 500 UNIT; Start 10/20/18 at 10:00 Heparin Sodium (Porcine) (Heparin (1000 Units/ml)) 1,500 unit WITH DIALYSIS HE Last administered on 10/24/18 15:10; Admin Dose 1,500 UNIT; Start 10/20/18 at 10:00 Ondansetron HCl (Zofran Tab) 4 mg Q6H PRN PO NAUSEA AND/OR VOMITING; Start 10/20/18 at 17:30 Epoetin Jero-epbx (Retacrit (Esrd)) 10,000 unit MoWeFr@1700 SC Last administered on 10/24/18 17:01; Admin Dose 10,000 UNIT; Start 10/24/18 at 17:00 Guaifenesin/ Dextromethorphan (Robitussin Dm Liquid Cup) 10 ml Q4H PRN PO cough Last administered on 10/25/18 15:49; Admin Dose 10 ML; Start 10/24/18 at 11:00 Insulin Glargine (Lantus) 20 units DAILY@0830 SC ; Start 10/26/18 at 08:30 CATARINA GONCALVES Oct 25, 2018 16:13
[2018-10-25] MEDS: BALSAM PERU/CASTOR OIL 60 GM TUBE TOP SCH (17:15)
[2018-10-25] MEDS: VANCOMYCIN HCL 250 MG/5ML POSYG PO SCH (19:30)
[2018-10-25] MEDS: ALBUMIN HUMAN 25% 100 ML IV PRN (21:21)
[2018-10-25] MEDS: HEPARIN 1000 UNITS/ML 10 ML INJ HE SCH (21:29)
[2018-10-25] MEDS ORDERED: ALTEPLASE (CATHFLO) 2 MG INJ CATHETER ONE (22:30)
[2018-10-26] VITALS (14 sets, daily range): BP systolic 86–132; BP diastolic 41–59; PULSE 50–89; RESP 18–20
[2018-10-26] MEDS: ATORVASTATIN 40 MG TAB PO SCH ×2 (00:17→20:36)
[2018-10-26] MEDS: FAMOTIDINE 20 MG TAB PO SCH ×3 (00:17→20:36)
[2018-10-26] MEDS: VANCOMYCIN HCL 250 MG/5ML POSYG PO SCH ×4 (00:18→05:40)
[2018-10-26] MEDS: OXYCODONE/ACETAMINOPHEN (5/325) TAB PO PRN ×2 (05:39→23:38)
[2018-10-26] MEDS: ACCU-CHEK XX SCH ×4 (07:00→21:00)
[2018-10-26] MEDS: INSULIN ASPART [NOVOLOG] 3 ML PEN SC SCH ×7 (08:00→20:36)
[2018-10-26] MEDS: ASPIRIN 81 MG TAB PO SCH (08:39)
[2018-10-26] MEDS: PAROXETINE (CR) 12.5 MG TAB PO SCH (08:39)
[2018-10-26] MEDS: BALSAM PERU/CASTOR OIL 60 GM TUBE TOP SCH (08:40)
[2018-10-26] MEDS: INSULIN GLARGINE [LANTus] (100 UNITS/ML) SYG SC SCH (08:44)
--- NOTE | 2018-10-26 09:27 | CONS ---
Assessment/Plan Assessment/Plan Assessment/Plan (Daily) 1. acute Hyperkalemia due to GI bleeding- resolved 2.Acute fluid overload- now resolved 3. acute GI bleeding causing acute blood loss anemia- S/p Status post EGD/colonoscopy 09/27/19 -Anastomosis ulcer -Normal colonoscopy 4. Severe Anemia with Hb 5.8 on admission s/p 5 U PRBC transfusion for GI bleeding during this admission - ot also has anemia of ESRD 5. H/O HTN 6. H/O peripherla vascular disease 7. ESRD on HD -follow up at [facility] for scheduled HD on MWF 8. Acute NSTEMI s/p LHC on 09/30/18 that showed 3 V CAD- s/p CABG on 10/07/18 Plan: s/p CABG on 10/07/18-s/p left groin Madi, - HD on Saturday - extra HD , then, will continue HD on MWF pt extensive IVC thrombosis, s/p Left groin permacath placement, used fro HD- dw Dr Tobar regarding resuming eliquis Continue lasix to 40mg Po daily Epogen 28535 units SQ MWF will follow up Patient seen in collaboration with Dr Tobar/dw staff Consultation Date/Type/Reason Admit Date/Time September 24, 2018 at 08:08 Initial Consult Date 09/24/18 Type of Consult NEPHRO Date/Time of Note DATE: 10/26/18 TIME: 09:24 24 HR Interval Summary Free Text/Dictation -nad - afebrile - seems comfortable - at bed side- all Qs answered - no events reported overnight dw staff Constitutional: requiring O2 Exam/Review of Systems Exam Vitals Vital Signs Date Temp Pulse Resp B/P (MAP) Pulse Ox O2 O2 Flow FiO2 Time Delivery Rate 10/26/18 78 08:16 10/26/18 98.8 20 86/53 (64) 98 Nasal 07:25 Cannula 10/26/18 3.0 02:35 Intake and Output 10/25/18 10/25/18 10/26/18 1515:00 23:00 07:00 IntakeIntake Total 1000 ml 300 ml OutputOutput Total 2100 ml BalanceBalance 1000 ml -1800 ml Constitutional: alert, well developed, obese Psych: nl mood/affect Eyes: nl lids ENMT: nl external ears & nose Neck: non-tender Respiratory: clear to auscultation Cardiovascular: nl pulses, other (s1s2) Gastrointestinal: soft, non-tender Musculoskeletal: muscle weakness Extremities: edema 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: nl speech, other (alert/responsive) Lymph: nontender Results Results 24hrs Laboratory Tests Test 10/25/18 11:59 10/25/18 17:12 10/25/18 20:06 10/26/18 07:49 Bedside Glucose 159 153 160 138 Medications Medication Current Medications Oxycodone/ Acetaminophen (Percocet (5/ 325)) 1 tab Q3H PRN PO PAIN LEVEL 1-5 Last administered on 10/26/18at 05:39; Admin Dose 1 TAB; Start 10/07/18 at 21:00 Ondansetron HCl (Zofran Inj) 4 mg Q6H PRN IV NAUSEA AND/OR VOMITING Last administered on 10/21/18at 12:10; Admin Dose 4 MG; Start 10/07/18 at 21:00 Famotidine (Pepcid) 20 mg BID PO Last administered on 10/26/18at 08:39; Admin Dose 20 MG; Start 10/08/18 at 21:00 Acetaminophen (Tylenol Tab) 650 mg Q3H PRN PO ELEVATED TEMPERATURE Last administered on 10/19/18at 21:48; Admin Dose 650 MG; Start 10/07/18 at 21:00 Atorvastatin Calcium (Lipitor) 40 mg HS PO Last administered on 10/26/18at 00:17; Admin Dose 40 MG; Start 10/08/18 at 21:00 Insulin Aspart (Novolog Insulin Pen) NOVOLOG *MODERATE* ALGORITHM WITH MEALS BEDTIME SC Last administered on 10/25/18at 17:22; Admin Dose 2 UNIT; Start 10/09/18 at 11:30 Glucose (Glutose) 15 gm Q15M PRN PO DECREASED GLUCOSE; Start 10/09/18 at 12:00 Glucose (Glutose) 22.5 gm Q15M PRN PO DECREASED GLUCOSE; Start 10/09/18 at 12:00 Dextrose (D50w Syringe) 25 ml Q15M PRN IV DECREASED GLUCOSE; Start 10/09/18 at 12:00 Dextrose (D50w Syringe) 50 ml Q15M PRN IV DECREASED GLUCOSE; Start 10/09/18 at 12:00 Glucagon (Glucagen) 1 mg Q15M PRN IM DECREASED GLUCOSE; Start 10/09/18 at 12:00 Glucose (Glutose) 15 gm Q15M PRN BUCCAL DECREASED GLUCOSE Last administered on 10/20/18 18:52; Admin Dose 15 GM; Start 10/09/18 at 12:00 Diagnostic Test (Pha) (Accu-Chek) 1 ea AC MEALS AND BEDTIME XX Last administered on 10/24/18 16:59; Admin Dose 1 EA; Start 10/09/18 at 11:00 Insulin Aspart (Novolog Insulin Pen) 8 unit WITH MEALS SC Last administered on 10/18/18 17:19; Admin Dose 8 UNIT; Start 10/10/18 at 11:30 Apixaban (Eliquis) 5 mg BID PO Last administered on 10/19/18 21:03; Admin Dose 5 MG; Start 10/11/18 at 21:00; Status Hold Aspirin (Aspirin) 81 mg DAILY PO Last administered on 10/26/18 08:39; Admin Dose 81 MG; Start 10/13/18 at 09:00 Albumin Human 100 ml @ 100 mls/hr DURING DIALYSIS PRN IV BLOOD PRESSURE SUPPORT Last administered on 10/25/18 21:21; Admin Dose 100 MLS/HR; Start 10/13/18 at 11:30 Magnesium Hydroxide (Milk Of Mag) 30 ml DAILY PRN PO CONSTIPATION; Start at 06:30 Paroxetine HCl (Paxil Cr) 25 mg DAILY PO Last administered on 10/26/18 08:39; Admin Dose 25 MG; Start 10/16/18 at 11:00 Furosemide (Lasix) 40 mg DAILY PO Last administered on 10/25/18 09:10; Admin Dose 40 MG; Start 10/20/18 at 09:00 Heparin Sodium (Porcine) (Heparin (1000 Units/ml)) 500 unit WITH DIALYSIS HE Last administered on 10/22/18 07:53; Admin Dose 500 UNIT; Start 10/20/18 at 10:00 Heparin Sodium (Porcine) (Heparin (1000 Units/ml)) 1,500 unit WITH DIALYSIS HE Last administered on 10/25/18 21:29; Admin Dose 1,500 UNIT; Start 10/20/18 at 10:00 Ondansetron HCl (Zofran Tab) 4 mg Q6H PRN PO NAUSEA AND/OR VOMITING; Start 10/20/18 at 17:30 Epoetin Jero-epbx (Retacrit (Esrd)) 10,000 unit MoWeFr@1700 SC Last administered on 10/24/18at 17:01; Admin Dose 10,000 UNIT; Start 10/24/18 at 17:00 Guaifenesin/ Dextromethorphan (Robitussin Dm Liquid Cup) 10 ml Q4H PRN PO cough Last administered on 10/25/18at 15:49; Admin Dose 10 ML; Start 10/24/18 at 11:00 Insulin Glargine (Lantus) 20 units DAILY@0830 SC Last administered on 10/26/18at 08:44; Admin Dose 20 UNITS; Start 10/26/18 at 08:30 Vancomycin HCl (Vancomycin Oral Syringe) 125 mg Q6 PO Last administered on 10/26/18at 05:40; Admin Dose 125 MG; Start 10/25/18 at 19:30 CATARINA GONCALVES Oct 26, 2018 09:27
[2018-10-26] MEDS: FUROSEMIDE 40 MG TAB PO SCH (12:51)
--- NOTE | 2018-10-26 14:08 | PN ---
Date/Time of Note Date/Time of Note DATE: 10/26/18 TIME: 14:06 Assessment/Plan VTE Prophylaxis Risk score (from Ns)>0 risk: 16 SCD applied (from Ns): Yes Pharmacological prophylaxis: heparin Lines/Catheters [facility] Madi Cath Urinary Cath still in place: No Assessment/Plan Hospital Course 67 yo with numerous comorbidities including dyslipidemia, IDDM, ESRD on HD and severe PVD who is also anticoagulated on Eliquis/Plavix,here with worsening malaise. Subsequently underwent CABG for severe CAD. HD has been complicated by issues with difficult access as he has extensive venous clots. No with permacath. Nausea with leukocytosis: - CT abdomen/pelvis today ESRD: - Permacath placed - HD per Dr Tobar IVC clot: - Eliquis at discharge NSTEMI/Multivessel coronary artery disease - s/p LHC 09/30 - s/p CABG 10/07 - Cautiously resume beta blockers. - Anticoag, antiplatelet per CT surgery - Continue statin. Severe acute symptomatic blood loss anemia -Improved with multiple transfusion. 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 -Wound care #Obesity with BMI 36.3 -Weight reduction advised. #Anemia of ESRD -on Epogen with hemodialysis #Debility secondary to comorbidities -Continue PT -ARU eval #Depression -Started Paxil DVT prophylaxis: SCDs PUD prophylaxis: Protonix DC planning: Plan is for venogram with vascular on 10/23, continue PT Results 24hrs Laboratory Tests Test 10/25/18 17:12 10/25/18 20:06 10/26/18 07:49 10/26/18 12:41 Bedside Glucose 153 160 138 186 Subjective 24 Hr Interval Summary Free Text/Dictation Remains a bit lethargic, nauseous C Diff sample rejected as it was formed stool Exam/Review of Systems Exam Vitals Vital Signs Date Temp Pulse Resp B/P (MAP) Pulse Ox O2 O2 Flow FiO2 Time Delivery Rate 10/26/18 59 12:10 10/26/18 97.3 20 125/46 99 Nasal 11:35 (72) Cannula 10/26/18 2.0 08:00 Intake and Output 10/25/18 10/25/18 10/26/18 1515:00 23:00 07:00 IntakeIntake Total 1000 ml 300 ml OutputOutput Total 2100 ml BalanceBalance 1000 ml -1800 ml Constitutional: alert, oriented, well developed Psych: no complaints, nl mood/affect Head: normocephalic, atraumatic Eyes: nl conjunctiva, EOMI, nl lids, nl sclera, PERRL ENMT: nl external ears & nose, nl lips & teeth, nl nasal mucosa & septum Neck: supple, non-tender Respiratory: clear to auscultation, normal air movement Cardiovascular: regular rate and rhythm, nl pulses Gastrointestinal: soft, nl liver, spleen, non-tender Musculoskeletal: nl extremities to inspection, nl gait and stance Extremities: normal pulses 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: [employer] II-XII intact, nl mental status, nl speech, nl strength Skin: nl turgor; No rash or lesions Lymph: nl lymph nodes Results Results 24hrs Laboratory Tests Test 10/25/18 17:12 10/25/18 20:06 10/26/18 07:49 10/26/18 12:41 Bedside Glucose 153 160 138 186 Medications Medication Current Medications Oxycodone/ Acetaminophen (Percocet (5/ 325)) 1 tab Q3H PRN PO PAIN LEVEL 1-5 Last administered on 10/26/18at 05:39; Admin Dose 1 TAB; Start 10/07/18 at 21:00 Ondansetron HCl (Zofran Inj) 4 mg Q6H PRN IV NAUSEA AND/OR VOMITING Last administered on 10/21/18at 12:10; Admin Dose 4 MG; Start 10/07/18 at 21:00 Famotidine (Pepcid) 20 mg BID PO Last administered on 10/26/18at 08:39; Admin Dose 20 MG; Start 10/08/18 at 21:00 Acetaminophen (Tylenol Tab) 650 mg Q3H PRN PO ELEVATED TEMPERATURE Last administered on 10/19/18at 21:48; Admin Dose 650 MG; Start 10/07/18 at 21:00 Atorvastatin Calcium (Lipitor) 40 mg HS PO Last administered on 10/26/18 00:17; Admin Dose 40 MG; Start 10/08/18 at 21:00 Insulin Aspart (Novolog Insulin Pen) NOVOLOG *MODERATE* ALGORITHM WITH MEALS BEDTIME SC Last administered on 10/26/18 13:24; Admin Dose 4 UNIT; Start 10/09/18 at 11:30 Glucose (Glutose) 15 gm Q15M PRN PO DECREASED GLUCOSE; Start 10/09/18 at 12:00 Glucose (Glutose) 22.5 gm Q15M PRN PO DECREASED GLUCOSE; Start 10/09/18 at 12:00 Dextrose (D50w Syringe) 25 ml Q15M PRN IV DECREASED GLUCOSE; Start 10/09/18 at 12:00 Dextrose (D50w Syringe) 50 ml Q15M PRN IV DECREASED GLUCOSE; Start 10/09/18 at 12:00 Glucagon (Glucagen) 1 mg Q15M PRN IM DECREASED GLUCOSE; Start 10/09/18 at 12:00 Glucose (Glutose) 15 gm Q15M PRN BUCCAL DECREASED GLUCOSE Last administered on 10/20/18 18:52; Admin Dose 15 GM; Start 10/09/18 at 12:00 Diagnostic Test (Pha) (Accu-Chek) 1 ea AC MEALS AND BEDTIME XX Last administered on 10/24/18 16:59; Admin Dose 1 EA; Start 10/09/18 at 11:00 Insulin Aspart (Novolog Insulin Pen) 8 unit WITH MEALS SC Last administered on 10/18/18 17:19; Admin Dose 8 UNIT; Start 10/10/18 at 11:30 Apixaban (Eliquis) 5 mg BID PO Last administered on 10/19/18 21:03; Admin Dose 5 MG; Start 10/11/18 at 21:00; Status Hold Aspirin (Aspirin) 81 mg DAILY PO Last administered on 10/26/18 08:39; Admin Dose 81 MG; Start 10/13/18 at 09:00 Albumin Human 100 ml @ 100 mls/hr DURING DIALYSIS PRN IV BLOOD PRESSURE SUPPORT Last administered on 10/25/18 21:21; Admin Dose 100 MLS/HR; Start 10/13/18 at 11:30 Magnesium Hydroxide (Milk Of Mag) 30 ml DAILY PRN PO CONSTIPATION; Start 10/16/18 at 06:30 Paroxetine HCl (Paxil Cr) 25 mg DAILY PO Last administered on 10/26/18 08:39; Admin Dose 25 MG; Start 10/16/18 at 11:00 Furosemide (Lasix) 40 mg DAILY PO Last administered on 10/26/18 12:51; Admin Dose 40 MG; Start 10/20/18 at 09:00 Heparin Sodium (Porcine) (Heparin (1000 Units/ml)) 500 unit WITH DIALYSIS HE Last administered on 10/22/18 07:53; Admin Dose 500 UNIT; Start 10/20/18 at 10:00 Heparin Sodium (Porcine) (Heparin (1000 Units/ml)) 1,500 unit WITH DIALYSIS HE Last administered on 10/25/18 21:29; Admin Dose 1,500 UNIT; Start 10/20/18 at 10:00 Ondansetron HCl (Zofran Tab) 4 mg Q6H PRN PO NAUSEA AND/OR VOMITING; Start 10/20/18 at 17:30 Epoetin Jero-epbx (Retacrit (Esrd)) 10,000 unit MoWeFr@1700 SC Last administered on 10/24/18 17:01; Admin Dose 10,000 UNIT; Start 10/24/18 at 17:00 Guaifenesin/ Dextromethorphan (Robitussin Dm Liquid Cup) 10 ml Q4H PRN PO cough Last administered on 10/25/18 15:49; Admin Dose 10 ML; Start 10/24/18 at 11:00 Insulin Glargine (Lantus) 20 units DAILY@0830 SC Last administered on 10/26/18 08:44; Admin Dose 20 UNITS; Start 10/26/18 at 08:30 PAUL LINDER MD Oct 26, 2018 14:08
[2018-10-27] VITALS (15 sets, daily range): BP systolic 91–130; BP diastolic 27–78; PULSE 52–91; RESP 18–20
[2018-10-27] MEDS: ACCU-CHEK XX SCH ×4 (07:38→21:00)
[2018-10-27] MEDS: INSULIN ASPART [NOVOLOG] 3 ML PEN SC SCH ×7 (08:07→21:00)
[2018-10-27] MEDS: INSULIN GLARGINE [LANTus] (100 UNITS/ML) SYG SC SCH (08:08)
[2018-10-27] MEDS: FAMOTIDINE 20 MG TAB PO SCH ×2 (08:09→21:12)
[2018-10-27] MEDS: PAROXETINE (CR) 12.5 MG TAB PO SCH (08:09)
[2018-10-27] MEDS: FUROSEMIDE 40 MG TAB PO SCH (08:09)
[2018-10-27] MEDS: ASPIRIN 81 MG TAB PO SCH (08:09)
[2018-10-27] MEDS: BALSAM PERU/CASTOR OIL 60 GM TUBE TOP SCH (08:12)
--- NOTE | 2018-10-27 08:47 | PN ---
Date/Time of Note Date/Time of Note DATE: 10/27/18 TIME: 08:33 Assessment/Plan Lines/Catheters IV Catheter Type (from Nrs): Central Line Pierre in Place (from Nrs): No Assessment/Plan Chief Complaint/Hosp Course -Bilateral lower extremity atherosclerosis with left lower extremity with left lower extremity third toe gangrene: It seems that the patient's left lower extremity third toe has become dry gangrene and currently stable. Unfortunately his first and second toe have also become gangrene with no significant erythema. The patient's foot pain has gradually improved since we had seen him a month ago and followed him in the office over the past few weeks. From a vascular surgery standpoint, recommend no current intervention as the patient had episode of upper gastrointestinal bleed and subsequently CABG. We are hoping that the patient's lower extremity atherosclerotic disease will not worsen during this period of time. Resume anticoagulation and antiplatelet therapy when cleared by multidisciplinary team. There is concern he may require an amputation should he not improve and develop worsening gangrene. This was discussed in detail with the family given his plethora of medical conditions -Bilateral lower extremity varicose veins and edema: The patient has component of mixed disease (venous insufficiency and arterial sufficiency). At the moment, we recommend elevation of the bilateral lower extremities while at rest. No further intervention will be needed and can be followed as an outpatient in regards to venous insufficiency. -End-stage renal disease: At the moment the patient's left upper extremity fistula is nonfunctional. -S/P Right femoral Madi catheter - malfunction -S/P Left IJ Madi malfunction -S/P Left groin Madi catheter functional -S/P Left groin Perm catheter placement -It appears there's an IVC occlusion upon evaluation by our IR colleagues. I've been asked by our multidisciplinary team to re-evaluate. We will plan to perform a venogram with possible perm catheter placement if the IVC is patent. I have thoroughly spoken with the patient and at the bedside regarding our intervention and they understand the full scope of what is involved. Should he require further advanced intervention for dialysis access he may need to be transferred to a tertiary center secondary to limited resources. Our multidisciplinary team has agreed with the plan and involved in the decision. Certified refurbish technician present. -S/P Central venogram & perm catheter placed that is functional. Optimize vascular status (BP meds, diet, nutrition, exercise, sugar control). We will resume antiplatelet therapy once cleared from GI standpoint. Discussed findings, plan and management with the patient and at the bedside and they understand. Thank you for allowing us to partake in the care of your patient. Please call with any questions. A certified refurbish technician was present throughout the conve rsation. Subjective 24 Hr Interval Summary no new vascular events overnight, tolerating HD Constitutional: no complaints Exam/Review of Systems Vital Signs Vitals Vital Signs Date Temp Pulse Resp B/P (MAP) Pulse Ox O2 O2 Flow FiO2 Time Delivery Rate 10/27/18 97.8 76 20 123/52 99 07:29 (75) 10/27/18 3.0 05:37 10/27/18 Nasal 00:54 Cannula Intake and Output 10/26/18 10/26/18 10/27/18 1515:00 23:00 07:00 IntakeIntake Total 600 ml 400 ml BalanceBalance 600 ml 400 ml Exam Free Text/Dictation GENERAL: Awake. PULMONARY: Coarse BS bilaterally, CARDIOVASCULAR: S1, S2 present. Dressing intact ABDOMEN: Soft, nontender, nondistended. Bowel sounds positive. Large truncal obesity. EXTREMITIES: Right lower extremity palpable femoral pulse, nonpalpable pedal pulse. Motor, sensory intact. Cap refill 3 to 4 seconds. Presence of varicose veins and large leg. Left lower extremity palpable femoral pulse, nonpalpable pedal pulse. Motor, sensory intact. Cap refill 3 to 4 seconds. Third toe gangrene, First and second toe with previous bluish discoloration and formation of gangrene now. Heel gangrene developing. groin catheter intact Varicose veins and edema of the left lower extremity with presence of mild lipodermatosclerosis. Left upper extremity: Palpable brachial pulse, motor/sensory intact, fistula with bruit and thrill not present Results Result Diagram: 10/27/18 0553 VANIA PEREYRA MD Oct 27, 2018 08:47
[2018-10-27] MEDS: PIPER-TAZO 2.25 GM (PMX) 50 ML IVPB SCH ×2 (12:53→21:11)
[2018-10-27] MEDS ORDERED: ALTEPLASE (CATHFLO) 2 MG INJ CATHETER ONE (14:00)
--- NOTE | 2018-10-27 14:09 | CONS ---
Assessment/Plan Assessment/Plan Assessment/Plan (Daily) 1. acute Hyperkalemia due to GI bleeding- resolved 2.Acute fluid overload- now resolved 3. acute GI bleeding causing acute blood loss anemia- S/p Status post EGD/colonoscopy 09/27/19 -Anastomosis ulcer -Normal colonoscopy 4. Severe Anemia with Hb 5.8 on admission s/p 5 U PRBC transfusion for GI ble eding during this admission - ot also has anemia of ESRD 5. H/O HTN 6. H/O peripherla vascular disease 7. ESRD on HD -follow up at [facility] for scheduled HD on MWF 8. Acute NSTEMI s/p LHC on 09/30/18 that showed 3 V CAD- s/p CABG on 10/07/18 Plan: s/p CABG on 10/07/18-s/p left groin Madi, -HD was ordered today, s/p tPA done, did not work well, , then, will continue HD on MWF pt extensive IVC thrombosis, s/p Left groin permacath placement Continue lasix to 40mg Po daily Epogen 81104 units SQ MWF will follow up Consultation Date/Type/Reason Admit Date/Time September 24, 2018 at 08:08 Initial Consult Date 09/24/18 Type of Consult NEPHROLOGY Date/Time of Note DATE: 10/27/18 TIME: 14:09 24 HR Interval Summary Free Text/Dictation HD catheter did not work well, BP stable awaiting placement Exam/Review of Systems Exam Vitals Vital Signs Date Temp Pulse Resp B/P (MAP) Pulse Ox O2 O2 Flow FiO2 Time Delivery Rate 10/27/18 55 12:00 10/27/18 98.3 20 126/48 99 11:23 (74) 10/27/18 3.0 09:56 10/27/18 Nasal 07:45 Cannula Intake and Output 10/26/18 10/26/18 10/27/18 1515:00 23:00 07:00 IntakeIntake Total 600 ml 400 ml BalanceBalance 600 ml 400 ml Exam Constitutional: alert, awake no acute distress Neck: supple, no JVD, no LAD Respiratory: crackles/rales, diminished breath sounds Cardiovascular: regular rate and rhythm, nl pulses, Scar healthy Gastrointestinal: soft, non-tender Musculoskeletal: swelling Extremities: 1+ pitting edema, left groin permacath 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: awake, alert, non focal Results Result Diagram: 10/27/18 0553 Results 24hrs Laboratory Tests Test 10/26/18 17:00 10/26/18 20:27 10/27/18 05:53 10/27/18 07:59 Bedside Glucose 183 152 196 Hemoglobin 8.7 L Test 10/27/18 11:33 Bedside Glucose 117 Medications Medication Current Medications Oxycodone/ Acetaminophen (Percocet (5/ 325)) 1 tab Q3H PRN PO PAIN LEVEL 1-5 Last administered on 10/26/18at 23:38; Admin Dose 1 TAB; Start 10/07/18 at 21:00 Ondansetron HCl (Zofran Inj) 4 mg Q6H PRN IV NAUSEA AND/OR VOMITING Last administered on 10/21/18 12:10; Admin Dose 4 MG; Start 10/07/18 at 21:00 Famotidine (Pepcid) 20 mg BID PO Last administered on 10/27/18 08:09; Admin Dose 20 MG; Start 10/08/18 at 21:00 Acetaminophen (Tylenol Tab) 650 mg Q3H PRN PO ELEVATED TEMPERATURE Last administered on 10/19/18at 21:48; Admin Dose 650 MG; Start 10/07/18 at 21:00 Atorvastatin Calcium (Lipitor) 40 mg HS PO Last administered on 10/26/18at 20:36; Admin Dose 40 MG; Start 10/08/18 at 21:00 Insulin Aspart (Novolog Insulin Pen) NOVOLOG *MODERATE* ALGORITHM WITH MEALS BEDTIME SC Last administered on 10/27/18 08:07; Admin Dose 4 UNIT; Start 10/09/18 at 11:30 Glucose (Glutose) 15 gm Q15M PRN PO DECREASED GLUCOSE; Start 10/09/18 at 12:00 Glucose (Glutose) 22.5 gm Q15M PRN PO DECREASED GLUCOSE; Start 10/09/18 at 12:00 Dextrose (D50w Syringe) 25 ml Q15M PRN IV DECREASED GLUCOSE; Start 10/09/18 at 12:00 Dextrose (D50w Syringe) 50 ml Q15M PRN IV DECREASED GLUCOSE; Start 10/09/18 at 12:00 Glucagon (Glucagen) 1 mg Q15M PRN IM DECREASED GLUCOSE; Start 10/09/18 at 12:00 Glucose (Glutose) 15 gm Q15M PRN BUCCAL DECREASED GLUCOSE Last administered on 10/20/18 18:52; Admin Dose 15 GM; Start 10/09/18 at 12:00 Diagnostic Test (Pha) (Accu-Chek) 1 ea AC MEALS AND BEDTIME XX Last administered on 10/27/18 11:33; Admin Dose 1 EA; Start 10/09/18 at 11:00 Insulin Aspart (Novolog Insulin Pen) 8 unit WITH MEALS SC Last administered on 10/27/18 11:34; Admin Dose 8 UNIT; Start 10/10/18 at 11:30 Apixaban (Eliquis) 5 mg BID PO Last administered on 10/19/18 21:03; Admin Dose 5 MG; Start 10/11/18 at 21:00; Status Hold Aspirin (Aspirin) 81 mg DAILY PO Last administered on 10/27/18 08:09; Admin Dose 81 MG; Start 10/13/18 at 09:00 Albumin Human 100 ml @ 100 mls/hr DURING DIALYSIS PRN IV BLOOD PRESSURE SUPPORT Last administered on 10/25/18 21:21; Admin Dose 100 MLS/HR; Start 10/13/18 at 11:30 Magnesium Hydroxide (Milk Of Mag) 30 ml DAILY PRN PO CONSTIPATION; Start 10/16/18 at 06:30 Paroxetine HCl (Paxil Cr) 25 mg DAILY PO Last administered on 10/27/18 08:09; Admin Dose 25 MG; Start 10/16/18 at 11:00 Furosemide (Lasix) 40 mg DAILY PO Last administered on 10/27/18 08:09; Admin Dose 40 MG; Start 10/20/18 at 09:00 Heparin Sodium (Porcine) (Heparin (1000 Units/ml)) 500 unit WITH DIALYSIS HE Last administered on 10/22/18 07:53; Admin Dose 500 UNIT; Start 10/20/18 at 10:00 Heparin Sodium (Porcine) (Heparin (1000 Units/ml)) 1,500 unit WITH DIALYSIS HE Last administered on 10/25/18 21:29; Admin Dose 1,500 UNIT; Start 10/20/18 at 10:00 Ondansetron HCl (Zofran Tab) 4 mg Q6H PRN PO NAUSEA AND/OR VOMITING; Start 10/20/18 at 17:30 Epoetin Jero-epbx (Retacrit (Esrd)) 10,000 unit MoWeFr@1700 SC Last administered on 10/24/18at 17:01; Admin Dose 10,000 UNIT; Start 10/24/18 at 17:00 Guaifenesin/ Dextromethorphan (Robitussin Dm Liquid Cup) 10 ml Q4H PRN PO cough Last administered on 10/25/18at 15:49; Admin Dose 10 ML; Start 10/24/18 at 11:00 Insulin Glargine (Lantus) 20 units DAILY@0830 SC Last administered on 10/27/18at 08:08; Admin Dose 20 UNITS; Start 10/26/18 at 08:30 Piperacillin Sod/ Tazobactam Sod 50 ml @ 100 mls/hr Q12 IVPB Last administered on 10/27/18at 12:53; Admin Dose 100 MLS/HR; Start 10/27/18 at 10:30 Alteplase, Recombinant (Cathflo (Activase)) 4 mg ONCE ONCE CATHETER ; Start 10/27/18 at 14:00; Stop 10/27/18 at 14:01; Status RAQUEL GALLEGOS MD Oct 27, 2018 14:09
--- NOTE | 2018-10-27 14:20 | PN ---
Date/Time of Note Date/Time of Note DATE: 10/27/18 TIME: 14:17 Assessment/Plan VTE Prophylaxis Risk score (from Nsg)>0 risk: 15 SCD applied (from Ns): Yes Pharmacological prophylaxis: heparin Lines/Catheters IV Catheter Type (from Nrsg): Central Line Central line still needed: Yes Urinary Cath still in place: No Assessment/Plan Hospital Course Alert, no distress AOx3 RRR Breathing comfortably No RUQ pain, soft nt nd no edema, venous stasis 67 yo with numerous comorbidities including dyslipidemia, IDDM, ESRD on HD and severe PVD who is also anticoagulated on Eliquis/Plavix,here with worsening malaise. Subsequently underwent CABG for severe CAD. HD has been complicated by issues with difficult access as he has extensive venous clots. No with permacath. Cholecystitis on imaging: - Zosyn course. Will manage conservatively for now given stability, mild symptoms, and very poor surgical candidate given comorbidities ESRD: - Permacath placed - HD per Dr Tobar IVC clot: - Eliquis at discharge NSTEMI/Multivessel coronary artery disease - s/p LHC 09/30 - s/p CABG 10/07 - Cautiously resume beta blockers. - Anticoag, antiplatelet per CT surgery - Continue statin. Severe acute symptomatic blood loss anemia -Improved with multiple transfusion. 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 -Wound care #Obesity with BMI 36.3 -Weight reduction advised. #Anemia of ESRD -on Epogen with hemodialysis #Debility secondary to comorbidities -Continue PT -ARU eval #Depression -Started Paxil DVT prophylaxis: SCDs PUD prophylaxis: Protonix DC planning: To SNF when stable Result Diagram: 10/27/18 0553 Results 24hrs Laboratory Tests Test 10/26/18 17:00 10/26/18 20:27 10/27/18 05:53 10/27/18 07:59 Bedside Glucose 183 152 196 Hemoglobin 8.7 L Test 10/27/18 11:33 Bedside Glucose 117 Subjective 24 Hr Interval Summary Free Text/Dictation CT shows cholecystitis, started on abx. That said, seems to be doing better today. More alert, eating, no abdominal pain Exam/Review of Systems Exam Vitals Vital Signs Date Temp Pulse Resp B/P (MAP) Pulse Ox O2 O2 Flow FiO2 Time Delivery Rate 10/27/18 55 12:00 10/27/18 98.3 20 126/48 99 11:23 (74) 10/27/18 3.0 09:56 10/27/18 Nasal 07:45 Cannula Intake and Output 10/26/18 10/26/18 10/27/18 1515:00 23:00 07:00 IntakeIntake Total 600 ml 400 ml BalanceBalance 600 ml 400 ml Results Results 24hrs Laboratory Tests Test 10/26/18 17:00 10/26/18 20:27 10/27/18 05:53 10/27/18 07:59 Bedside Glucose 183 152 196 Hemoglobin 8.7 L Test 10/27/18 11:33 Bedside Glucose 117 Medications Medication Current Medications Oxycodone/ Acetaminophen (Percocet (5/ 325)) 1 tab Q3H PRN PO PAIN LEVEL 1-5 Last administered on 10/26/18at 23:38; Admin Dose 1 TAB; Start 10/07/18 at 21:00 Ondansetron HCl (Zofran Inj) 4 mg Q6H PRN IV NAUSEA AND/OR VOMITING Last administered on 10/21/18at 12:10; Admin Dose 4 MG; Start 10/07/18 at 21:00 Famotidine (Pepcid) 20 mg BID PO Last administered on 10/27/18 08:09; Admin Dose 20 MG; Start 10/08/18 at 21:00 Acetaminophen (Tylenol Tab) 650 mg Q3H PRN PO ELEVATED TEMPERATURE Last administered on 10/19/18at 21:48; Admin Dose 650 MG; Start 10/07/18 at 21:00 Atorvastatin Calcium (Lipitor) 40 mg HS PO Last administered on 10/26/18at 20:36; Admin Dose 40 MG; Start 10/08/18 at 21:00 Insulin Aspart (Novolog Insulin Pen) NOVOLOG *MODERATE* ALGORITHM WITH MEALS BEDTIME SC Last administered on 10/27/18 08:07; Admin Dose 4 UNIT; Start 10/09/18 at 11:30 Glucose (Glutose) 15 gm Q15M PRN PO DECREASED GLUCOSE; Start 10/09/18 at 12:00 Glucose (Glutose) 22.5 gm Q15M PRN PO DECREASED GLUCOSE; Start 10/09/18 at 12:00 Dextrose (D50w Syringe) 25 ml Q15M PRN IV DECREASED GLUCOSE; Start 10/09/18 at 12:00 Dextrose (D50w Syringe) 50 ml Q15M PRN IV DECREASED GLUCOSE; Start 10/09/18 at 12:00 Glucagon (Glucagen) 1 mg Q15M PRN IM DECREASED GLUCOSE; Start 10/09/18 at 12:00 Glucose (Glutose) 15 gm Q15M PRN BUCCAL DECREASED GLUCOSE Last administered on 10/20/18 18:52; Admin Dose 15 GM; Start 10/09/18 at 12:00 Diagnostic Test (Pha) (Accu-Chek) 1 ea AC MEALS AND BEDTIME XX Last administered on 10/27/18 11:33; Admin Dose 1 EA; Start 10/09/18 at 11:00 Insulin Aspart (Novolog Insulin Pen) 8 unit WITH MEALS SC Last administered on 10/27/18 11:34; Admin Dose 8 UNIT; Start 10/10/18 at 11:30 Apixaban (Eliquis) 5 mg BID PO Last administered on 10/19/18 21:03; Admin Dose 5 MG; Start 10/11/18 at 21:00; Status Hold Aspirin (Aspirin) 81 mg DAILY PO Last administered on 10/27/18 08:09; Admin Dose 81 MG; Start 10/13/18 at 09:00 Albumin Human 100 ml @ 100 mls/hr DURING DIALYSIS PRN IV BLOOD PRESSURE SUPPORT Last administered on 10/25/18 21:21; Admin Dose 100 MLS/HR; Start 10/13/18 at 11:30 Magnesium Hydroxide (Milk Of Mag) 30 ml DAILY PRN PO CONSTIPATION; Start 10/16/18 at 06:30 Paroxetine HCl (Paxil Cr) 25 mg DAILY PO Last administered on 10/27/18 08:09; Admin Dose 25 MG; Start 10/16/18 at 11:00 Furosemide (Lasix) 40 mg DAILY PO Last administered on 10/27/18 08:09; Admin Dose 40 MG; Start 10/20/18 at 09:00 Heparin Sodium (Porcine) (Heparin (1000 Units/ml)) 500 unit WITH DIALYSIS HE Last administered on 10/22/18 07:53; Admin Dose 500 UNIT; Start 10/20/18 at 10:00 Heparin Sodium (Porcine) (Heparin (1000 Units/ml)) 1,500 unit WITH DIALYSIS HE Last administered on 10/25/18 21:29; Admin Dose 1,500 UNIT; Start 10/20/18 at 10:00 Ondansetron HCl (Zofran Tab) 4 mg Q6H PRN PO NAUSEA AND/OR VOMITING; Start 10/20/18 at 17:30 Epoetin Jero-epbx (Retacrit (Esrd)) 10,000 unit MoWeFr@1700 SC Last administe red on 10/24/18 17:01; Admin Dose 10,000 UNIT; Start 10/24/18 at 17:00 Guaifenesin/ Dextromethorphan (Robitussin Dm Liquid Cup) 10 ml Q4H PRN PO cough Last administered on 10/25/18 15:49; Admin Dose 10 ML; Start 10/24/18 at 11:00 Insulin Glargine (Lantus) 20 units DAILY@0830 SC Last administered on 10/27/18 08:08; Admin Dose 20 UNITS; Start 10/26/18 at 08:30 Piperacillin Sod/ Tazobactam Sod 50 ml @ 100 mls/hr Q12 IVPB Last administered on 10/27/18 12:53; Admin Dose 100 MLS/HR; Start 10/27/18 at 10:30 PAUL LINDER MD Oct 27, 2018 14:20
--- NOTE | 2018-10-27 14:22 | CONS ---
Assessment/Plan Assessment/Plan Hospital Course (Demo Recall) Afib/flutter: new onset, rates controlled. Now on Eliquis Cholecystitis: started on antibiotics. Seen on CT. No symptoms or exam findings CAD s/p CABG: CABG x4 10/07/18, ÁLVAREZ to LAD, SVG to ramus, SVG to OM1 sequenced to OM2. Doing well. Extubated 10/08, off pressors NSTEMI: Trop peak 1.1 and trended down. S/p cath 09/30/18 with diffuse multivessel CAD. CABG as above Upper GI bleed: due to anastomotic ulcer seen on EGD 09/26. No bleeding since. Hgb relatively stable. Anemia: due to above. s/p 5 units PRBCs and 2 units intraop. Wenckebach: Wilitz 1. Not on BB. No pauses or high grade block. 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 Unable to place right IJ. Now s/p left femoral permacath 10/24 HTN H/o Billroth Depression: now on meds -restart Eliquis 5mg BID as no surgical intervention or procedure planned (was stopped for permacath) -antibiotics -ASA 81mg -continue to hold metoprolol as pt has bradycardia -lipitor 40mg -lasix 40mg PO -HD per nephrology Consultation Date/Type/Reason Admit Date/Time September 24, 2018 at 08:08 Initial Consult Date 09/24/18 Type of Consult Cardiology Date/Time of Note DATE: 10/27/18 TIME: 14:16 24 HR Interval Summary Free Text/Dictation CT showed acute cholecystitis. Now on zosyn. No abdominal pain, N/V. Eating better per . Exam/Review of Systems Vital Signs Vitals Vital Signs Date Temp Pulse Resp B/P (MAP) Pulse Ox O2 O2 Flow FiO2 Time Delivery Rate 10/27/18 55 12:00 10/27/18 98.3 20 126/48 99 11:23 (74) 10/27/18 3.0 09:56 10/27/18 Nasal 07:45 Cannula Intake and Output 10/26/18 10/26/1819 1515:00 23:00 07:00 IntakeIntake Total 600 ml 400 ml BalanceBalance 600 ml 400 ml Exam Constitutional: alert, oriented Psych: no complaints Head: normocephalic, atraumatic Neck: No jvd Respiratory: diminished breath sounds; No clear to auscultation Cardiovascular: regular rate and rhythm, systolic murmur (2/6 GREGORY) Gastrointestinal: soft, non-tender; No distended 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: nl mental status, nl speech Labs Result Diagram: 10/27/18 0553 Results 24hrs Laboratory Tests Test 10/26/18 17:00 10/26/18 20:27 10/27/18 05:53 10/27/18 07:59 Bedside Glucose 183 152 196 Hemoglobin 8.7 L Test 10/27/18 11:33 Bedside Glucose 117 Medications Medications Current Medications Oxycodone/ Acetaminophen (Percocet (5/ 325)) 1 tab Q3H PRN PO PAIN LEVEL 1-5 L ast administered on 10/26/18 23:38; Admin Dose 1 TAB; Start 10/07/18 at 21:00 Ondansetron HCl (Zofran Inj) 4 mg Q6H PRN IV NAUSEA AND/OR VOMITING Last administered on 10/21/18 12:10; Admin Dose 4 MG; Start 10/07/18 at 21:00 Famotidine (Pepcid) 20 mg BID PO Last administered on 10/27/18 08:09; Admin Dose 20 MG; Start 10/08/18 at 21:00 Acetaminophen (Tylenol Tab) 650 mg Q3H PRN PO ELEVATED TEMPERATURE Last administered on 10/19/18 21:48; Admin Dose 650 MG; Start 10/07/18 at 21:00 Atorvastatin Calcium (Lipitor) 40 mg HS PO Last administered on 10/26/18 20:36; Admin Dose 40 MG; Start 10/08/18 at 21:00 Insulin Aspart (Novolog Insulin Pen) NOVOLOG *MODERATE* ALGORITHM WITH MEALS BEDTIME SC Last administered on 10/27/18 08:07; Admin Dose 4 UNIT; Start 10/09/18 at 11:30 Glucose (Glutose) 15 gm Q15M PRN PO DECREASED GLUCOSE; Start 10/09/18 at 12:00 Glucose (Glutose) 22.5 gm Q15M PRN PO DECREASED GLUCOSE; Start 10/09/18 at 12:00 Dextrose (D50w Syringe) 25 ml Q15M PRN IV DECREASED GLUCOSE; Start 10/09/18 at 12:00 Dextrose (D50w Syringe) 50 ml Q15M PRN IV DECREASED GLUCOSE; Start 10/09/18 at 12:00 Glucagon (Glucagen) 1 mg Q15M PRN IM DECREASED GLUCOSE; Start 10/09/18 at 12:00 Glucose (Glutose) 15 gm Q15M PRN BUCCAL DECREASED GLUCOSE Last administered on 10/20/18 18:52; Admin Dose 15 GM; Start 10/09/18 at 12:00 Diagnostic Test (Pha) (Accu-Chek) 1 ea AC MEALS AND BEDTIME XX Last administered on 10/27/18 11:33; Admin Dose 1 EA; Start 10/09/18 at 11:00 Insulin Aspart (Novolog Insulin Pen) 8 unit WITH MEALS SC Last administered on 10/27/18 11:34; Admin Dose 8 UNIT; Start 10/10/18 at 11:30 Apixaban (Eliquis) 5 mg BID PO Last administered on 10/19/18 21:03; Admin Dose 5 MG; Start 10/11/18 at 21:00; Status Hold Aspirin (Aspirin) 81 mg DAILY PO Last administered on 10/27/18 08:09; Admin Dose 81 MG; Start 10/13/18 at 09:00 Albumin Human 100 ml @ 100 mls/hr DURING DIALYSIS PRN IV BLOOD PRESSURE SUPPORT Last administered on 10/25/18 21:21; Admin Dose 100 MLS/HR; Start 10/13/18 at 11:30 Magnesium Hydroxide (Milk Of Mag) 30 ml DAILY PRN PO CONSTIPATION; Start 10/16 at 06:30 Paroxetine HCl (Paxil Cr) 25 mg DAILY PO Last administered on 10/27/18 08:09; Admin Dose 25 MG; Start 10/16/18 at 11:00 Furosemide (Lasix) 40 mg DAILY PO Last administered on 10/27/18 08:09; Admin Dose 40 MG; Start 10/20/18 at 09:00 Heparin Sodium (Porcine) (Heparin (1000 Units/ml)) 500 unit WITH DIALYSIS HE Last administered on 10/22/18 07:53; Admin Dose 500 UNIT; Start 10/20/18 at 10:00 Heparin Sodium (Porcine) (Heparin (1000 Units/ml)) 1,500 unit WITH DIALYSIS HE Last administered on 10/25/18at 21:29; Admin Dose 1,500 UNIT; Start 10/20/18 at 10:00 Ondansetron HCl (Zofran Tab) 4 mg Q6H PRN PO NAUSEA AND/OR VOMITING; Start 10/20/18 at 17:30 Epoetin Jero-epbx (Retacrit (Esrd)) 10,000 unit MoWeFr@1700 SC Last administered on 10/24/18at 17:01; Admin Dose 10,000 UNIT; Start 10/24/18 at 17:00 Guaifenesin/ Dextromethorphan (Robitussin Dm Liquid Cup) 10 ml Q4H PRN PO cough Last administered on 10/25/18at 15:49; Admin Dose 10 ML; Start 10/24/18 at 11:00 Insulin Glargine (Lantus) 20 units DAILY@0830 SC Last administered on 10/27/18at 08:08; Admin Dose 20 UNITS; Start 10/26/18 at 08:30 Piperacillin Sod/ Tazobactam Sod 50 ml @ 100 mls/hr Q12 IVPB Last administered on 10/27/18at 12:53; Admin Dose 100 MLS/HR; Start 10/27/18 at 10:30 LAVON SEE Oct 27, 2018 14:22
[2018-10-27] MEDS: HEPARIN 1000 UNITS/ML 10 ML INJ HE SCH (14:43)
[2018-10-27] MEDS: EPOETIN ALFA-EPBX (ESRD) 10,000 UNIT/ML VIAL SC SCH (17:44)
[2018-10-27] MEDS: ATORVASTATIN 40 MG TAB PO SCH (21:12)
[2018-10-27] MEDS: APIXABAN 5 MG TABLET PO SCH (21:12)
[2018-10-28 02:00] VITALS: BP 117/68; PULSE 77; RESP 18
[2018-10-28] MEDS: ACCU-CHEK XX SCH ×4 (07:30→21:00)
[2018-10-28] MEDS: INSULIN ASPART [NOVOLOG] 3 ML PEN SC SCH ×7 (08:00→21:00)
[2018-10-28] MEDS: BALSAM PERU/CASTOR OIL 60 GM TUBE TOP SCH (08:07)
[2018-10-28] MEDS: INSULIN GLARGINE [LANTus] (100 UNITS/ML) SYG SC SCH (08:10)
[2018-10-28 08:31] VITALS: BP 94/42; PULSE 80; RESP 18
--- NOTE | 2018-10-28 09:13 | CONS ---
Assessment/Plan Assessment/Plan Assessment/Plan (Daily) 1. acute Hyperkalemia due to GI bleeding- resolved 2.Acute fluid overload- now resolved 3. acute GI bleeding causing acute blood loss anemia- S/p Status post EGD/colonoscopy 09/27/19 -Anastomosis ulcer -Normal colonoscopy 4. Severe Anemia with Hb 5.8 on admission s/p 5 U PRBC transfusion for GI ble eding during this admission - ot also has anemia of ESRD 5. H/O HTN 6. H/O peripherla vascular disease 7. ESRD on HD -follow up at [facility] [place] for scheduled HD on MWF 8. 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 Unable to place right IJ by IR due to central stenosis. Now s/p left femoral permacath 10/24 but again clotted- not working , last HD was done on Saturday10/25/18- Discussed with Dr. Velasco - Recommended for higher level of care for diffficult HD access, will need IR or vascular surgery at Tertiary center to address HD access establishment due to IVC thormbosis and Central stenosis Continue lasix to 40mg Po daily Epogen 49002 units SQ MWF will follow up Consultation Date/Type/Reason Admit Date/Time September 24, 2018 at 08:08 Initial Consult Date 09/24/18 Type of Consult NEPHROLOGY Date/Time of Note DATE: 10/28/18 TIME: 09:13 24 HR Interval Summary Free Text/Dictation pt dialysis catheter clotted again, despite using tPA, BP stable, d/w Dr. velasco pt has no other access, unable to do HD without access Exam/Review of Systems Exam Vitals Vital Signs Date Temp Pulse Resp B/P (MAP) Pulse Ox O2 O2 Flow FiO2 Time Delivery Rate 10/28/18 98.6 80 18 94/42 (59) 98 Nasal 2.0 08:31 Cannula Intake and Output 10/27/18 10/27/18 10/28/18 1515:00 23:00 07:00 IntakeIntake Total 1000 ml BalanceBalance 1000 ml Exam Constitutional: alert, awake no acute distress Neck: supple, no JVD, no LAD Respiratory: crackles/rales, diminished breath sounds Cardiovascular: regular rate and rhythm, nl pulses, Scar healthy Gastrointestinal: soft, non-tender Musculoskeletal: swelling Extremities: 1+ pitting edema, left groin permacath 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: awake, alert, non focal Results Result Diagram: 10/27/18 1646 10/27/18 1600 Results 24hrs Laboratory Tests Test 10/27/18 11:33 10/27/18 16:00 10/27/18 16:46 10/27/18 17:21 Bedside Glucose 117 206 Sodium Level 133 L Potassium Level 5.0 Chloride Level 94 L Carbon Dioxide Level 20 L Anion Gap 19 H Blood Urea Nitrogen 81 H Creatinine 7.78 H Est Glomerular Filtrat 7 L Rate mL/min Glucose Level 190 Calcium Level 7.8 L Total Bilirubin 0.5 Direct Bilirubin 0.00 Indirect Bilirubin 0.5 Aspartate Amino 31 Transf (AST/SGOT) Alanine 22 Aminotransferase (ALT/SG PT) Alkaline Phosphatase 245 H Total Protein 8.1 Albumin 3.4 Globulin 4.70 H Albumin/Globulin Ratio 0.72 White Blood Count 20.7 H Red Blood Count 3.31 L Hemoglobin 9.1 L Hematocrit 28.5 L Mean Corpuscular Volume 86.1 Mean Corpuscular 27.5 L Hemoglobin Mean Corpuscular 31.9 L Hemoglobin Concent Red Cell Distribution 17.5 H Width Platelet Count 247 # Mean Platelet Volume 10.8 H Immature Granulocytes % 1.000 H Neutrophils % Segmented Neutrophils 85 H % (Manual) Lymphocytes % Lymphocytes % (Manual) 8 L Monocytes % Monocytes % (Manual) 4 Eosinophils % Eosinophils % (Manual) 3 Basophils % Nucleated Red Blood 0.0 Cells % Immature Granulocytes # 0.210 H Neutrophils # Lymphocytes (Manual) 1.6 Lymphocytes # Monocytes # Monocytes # (Manual) 0.8 Eosinophils # Basophils # Nucleated Red Blood Cells # Platelet Estimate NORMAL Polychromasia 1+ Test 10/27/18 21:09 10/28/18 08:06 Bedside Glucose 102 132 Medications Medication Current Medications Oxycodone/ Acetaminophen (Percocet (5/ 325)) 1 tab Q3H PRN PO PAIN LEVEL 1-5 Last administered on 10/26/18at 23:38; Admin Dose 1 TAB; Start 10/07/18 at 21:00 Ondansetron HCl (Zofran Inj) 4 mg Q6H PRN IV NAUSEA AND/OR VOMITING Last administered on 10/21/18 12:10; Admin Dose 4 MG; Start 10/07/18 at 21:00 Famotidine (Pepcid) 20 mg BID PO Last administered on 10/27/18 21:12; Admin Dose 20 MG; Start 10/08/18 at 21:00 Acetaminophen (Tylenol Tab) 650 mg Q3H PRN PO ELEVATED TEMPERATURE Last administered on 10/19/18 21:48; Admin Dose 650 MG; Start 10/07/18 at 21:00 Atorvastatin Calcium (Lipitor) 40 mg HS PO Last administered on 10/27/18 21:12; Admin Dose 40 MG; Start 10/08/18 at 21:00 Insulin Aspart (Novolog Insulin Pen) NOVOLOG *MODERATE* ALGORITHM WITH MEALS BEDTIME SC Last administered on 10/27/18 17:59; Admin Dose 4 UNIT; Start 10/09/18 at 11:30 Glucose (Glutose) 15 gm Q15M PRN PO DECREASED GLUCOSE; Start 10/09/18 at 12:00 Glucose (Glutose) 22.5 gm Q15M PRN PO DECREASED GLUCOSE; Start 10/09/18 at 12:00 Dextrose (D50w Syringe) 25 ml Q15M PRN IV DECREASED GLUCOSE; Start 10/09/18 at 12:00 Dextrose (D50w Syringe) 50 ml Q15M PRN IV DECREASED GLUCOSE; Start 10/09/18 at 12:00 Glucagon (Glucagen) 1 mg Q15M PRN IM DECREASED GLUCOSE; Start 10/09/18 at 12:00 Glucose (Glutose) 15 gm Q15M PRN BUCCAL DECREASED GLUCOSE Last administered on 10/20/18 18:52; Admin Dose 15 GM; Start 10/09/18 at 12:00 Diagnostic Test (Pha) (Accu-Chek) 1 ea AC MEALS AND BEDTIME XX Last administered on 10/27/18 17:44; Admin Dose 1 EA; Start 10/09/18 at 11:00 Insulin Aspart (Novolog Insulin Pen) 8 unit WITH MEALS SC Last administered on 10/28/18 08:10; Admin Dose 8 UNIT; Start 10/10/18 at 11:30 Aspirin (Aspirin) 81 mg DAILY PO Last administered on 10/27/18 08:09; Admin D ose 81 MG; Start 10/13/18 at 09:00 Albumin Human 100 ml @ 100 mls/hr DURING DIALYSIS PRN IV BLOOD PRESSURE SUPPORT Last administered on 10/25/18 21:21; Admin Dose 100 MLS/HR; Start 10/13/18 at 11:30 Magnesium Hydroxide (Milk Of Mag) 30 ml DAILY PRN PO CONSTIPATION; Start 10/16/18 at 06:30 Paroxetine HCl (Paxil Cr) 25 mg DAILY PO Last administered on 10/27/18 08:09; Admin Dose 25 MG; Start 10/16/18 at 11:00 Furosemide (Lasix) 40 mg DAILY PO Last administered on 10/27/18 08:09; Admin Dose 40 MG; Start 10/20/18 at 09:00 Heparin Sodium (Porcine) (Heparin (1000 Units/ml)) 500 unit WITH DIALYSIS HE Last administered on 10/27/18 14:43; Admin Dose 500 UNIT; Start 10/20/18 at 10:00 Heparin Sodium (Porcine) (Heparin (1000 Units/ml)) 1,500 unit WITH DIALYSIS HE Last administered on 10/25/18 21:29; Admin Dose 1,500 UNIT; Start 10/20/18 at 10:00 Ondansetron HCl (Zofran Tab) 4 mg Q6H PRN PO NAUSEA AND/OR VOMITING; Start 10/20/18 at 17:30 Epoetin Jero-epbx (Retacrit (Esrd)) 10,000 unit MoWeFr@1700 SC Last administered on 10/27/18 17:44; Admin Dose 10,000 UNIT; Start 10/24/18 at 17:00 Guaifenesin/ Dextromethorphan (Robitussin Dm Liquid Cup) 10 ml Q4H PRN PO cough Last administered on 10/25/18 15:49; Admin Dose 10 ML; Start 10/24/18 at 11:00 Insulin Glargine (Lantus) 20 units DAILY@0830 SC Last administered on 10/28/18 08:10; Admin Dose 20 UNITS; Start 10/26/18 at 08:30 Piperacillin Sod/ Tazobactam Sod 50 ml @ 100 mls/hr Q12 IVPB Last administered on 10/27/18 21:11; Admin Dose 100 MLS/HR; Start 10/27/18 at 10:30 Apixaban (Eliquis) 5 mg BID PO Last administered on 10/27/18at 21:12; Admin Dose 5 MG; Start 10/27/18 at 21:00 RAQUEL MCDOWELL MD Oct 28, 2018 09:13
[2018-10-28] MEDS: PAROXETINE (CR) 12.5 MG TAB PO SCH (10:07)
[2018-10-28] MEDS: APIXABAN 5 MG TABLET PO SCH ×2 (10:07→21:09)
[2018-10-28] MEDS: FAMOTIDINE 20 MG TAB PO SCH ×2 (10:07→21:09)
[2018-10-28] MEDS: ASPIRIN 81 MG TAB PO SCH (10:08)
[2018-10-28] MEDS: FUROSEMIDE 40 MG TAB PO SCH (10:08)
[2018-10-28] MEDS: PIPER-TAZO 2.25 GM (PMX) 50 ML IVPB SCH (10:20)
[2018-10-28 14:20] VITALS: BP 116/60; PULSE 73; RESP 17
--- NOTE | 2018-10-28 14:21 | PN ---
Date/Time of Note Date/Time of Note DATE: 10/28/18 TIME: 14:19 Assessment/Plan VTE Prophylaxis Risk score (from Nsg)>0 risk: 14 SCD applied (from Nsg): Yes Pharmacological prophylaxis: heparin Lines/Catheters IV Catheter Type (from Nrsg): Mid Line Urinary Cath still in place: No Assessment/Plan Hospital Course Alert, no distress AOx3 RRR Breathing comfortably No RUQ pain, soft nt nd no edema, venous stasis Gangrenous toes 67 yo with numerous comorbidities including dyslipidemia, IDDM, ESRD on HD and severe PVD who is also anticoagulated on Eliquis/Plavix,here with worsening malaise. Subsequently underwent CABG for severe CAD. HD has been complicated by issues with difficult access as he has extensive venous clots. Permacath placed here no longer functions. Per vascluar surgery, he will require transfer to tertiary center to see if access can be placed. Cholecystitis: - Symptoms much better. Will switch to PO abx to avoid excess fluids ESRD: - No ability to get venous access for HD given extensive clotting IVC clot: - Eliquis NSTEMI/Multivessel coronary artery disease - s/p LHC 09/30 - s/p CABG 10/07 - Cautiously resume beta blockers. - Anticoag, antiplatelet per CT surgery - Continue statin. Severe acute symptomatic blood loss anemia -Improved with multiple transfusion. 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 -Wound care #Obesity with BMI 36.3 -Weight reduction advised. #Anemia of ESRD -on Epogen with hemodialysis #Debility secondary to comorbidities -Continue PT -ARU eval #Depression -Started Paxil DVT prophylaxis: SCDs PUD prophylaxis: Protonix DC planning: To tertiary center for vascular access Result Diagram: 10/28/18 1058 10/28/18 1058 Results 24hrs Laboratory Tests Test 10/27/18 16:00 10/27/18 16:46 10/27/18 17:21 10/27/18 21:09 Sodium Level 133 L Potassium Level 5.0 Chloride Level 94 L Carbon Dioxide Level 20 L Anion Gap 19 H Blood Urea Nitrogen 81 H Creatinine 7.78 H Est Glomerular Filtrat 7 L Rate mL/min Glucose Level 190 Calcium Level 7.8 L Total Bilirubin 0.5 Direct Bilirubin 0.00 Indirect Bilirubin 0.5 Aspartate Amino 31 Transf (AST/SGOT) Alanine 22 Aminotransferase (ALT/SG PT) Alkaline Phosphatase 245 H Total Protein 8.1 Albumin 3.4 Globulin 4.70 H Albumin/Globulin Ratio 0.72 White Blood Count 20.7 H Red Blood Count 3.31 L Hemoglobin 9.1 L Hematocrit 28.5 L Mean Corpuscular Volume 86.1 Mean Corpuscular 27.5 L Hemoglobin Mean Corpuscular 31.9 L Hemoglobin Concent Red Cell Distribution 17.5 H Width Platelet Count 247 # Mean Platelet Volume 10.8 H Immature Granulocytes % 1.000 H Neutrophils % Segmented Neutrophils 85 H % (Manual) Lymphocytes % Lymphocytes % (Manual) 8 L Monocytes % Monocytes % (Manual) 4 Eosinophils % Eosinophils % (Manual) 3 Basophils % Nucleated Red Blood 0.0 Cells % Immature Granulocytes # 0.210 H Neutrophils # Lymphocytes (Manual) 1.6 Lymphocytes # Monocytes # Monocytes # (Manual) 0.8 Eosinophils # Basophils # Nucleated Red Blood Cells # Platelet Estimate NORMAL Polychromasia 1+ Bedside Glucose 206 102 Test 10/28/18 08:06 10/28/18 10:58 10/28/18 12:17 Bedside Glucose 132 135 White Blood Count 19.3 H Red Blood Count 3.19 L Hemoglobin 8.6 L Hematocrit 27.5 L Mean Corpuscular Volume 86.2 Mean Corpuscular 27.0 L Hemoglobin Mean Corpuscular 31.3 L Hemoglobin Concent Red Cell Distribution 17.3 H Width Platelet Count 318 # Mean Platelet Volume 10.3 Immature Granulocytes % 1.100 H Neutrophils % 86.9 H Lymphocytes % 5.5 L Monocytes % 5.4 Eosinophils % 0.8 Basophils % 0.3 Nucleated Red Blood 0.0 Cells % Immature Granulocytes # 0.210 H Neutrophils # 16.8 H Lymphocytes # 1.1 Monocytes # 1.0 H Eosinophils # 0.2 Basophils # 0.1 Nucleated Red Blood 0.0 Cells # Sodium Level 132 L Potassium Level 4.9 Chloride Level 95 L Carbon Dioxide Level 19 L Anion Gap 18 H Blood Urea Nitrogen 91 H Creatinine 9.15 H Est Glomerular Filtrat 6 L Rate mL/min Glucose Level 140 # Calcium Level 7.6 L Subjective 24 Hr Interval Summary Free Text/Dictation Unfortunately his permacath has stopped funcionting despite injection of TPA. Given extensive clotting, we dont' have ability to place alternative access here and transfer to [place] is suggested Exam/Review of Systems Exam Vitals Vital Signs Date Temp Pulse Resp B/P (MAP) Pulse Ox O2 O2 Flow FiO2 Time Delivery Rate 10/28/18 Nasal 2.0 10:00 Cannula 10/28/18 98.6 80 18 94/42 (59) 98 08:31 Intake and Output 10/27/18 10/27/18 10/28/18 1515:00 23:00 07:00 IntakeIntake Total 1000 ml BalanceBalance 1000 ml Constitutional: alert, oriented, well developed Psych: no complaints, nl mood/affect Head: normocephalic, atraumatic Eyes: nl conjunctiva, EOMI, nl lids, nl sclera, PERRL ENMT: nl external ears & nose, nl lips & teeth, nl nasal mucosa & septum Neck: supple, non-tender Respiratory: clear to auscultation, normal air movement Cardiovascular: regular rate and rhythm, nl pulses Gastrointestinal: soft, nl liver, spleen, non-tender Musculoskeletal: nl extremities to inspection, nl gait and stance Extremities: normal pulses 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: LEAN FACILITATOR II-XII intact, nl mental status, nl speech, nl strength Skin: nl turgor; No rash or lesions Lymph: nl lymph nodes Results Results 24hrs Laboratory Tests Test 10/27/18 16:00 10/27/18 16:46 10/27/18 17:21 10/27/18 21:09 Sodium Level 133 L Potassium Level 5.0 Chloride Level 94 L Carbon Dioxide Level 20 L Anion Gap 19 H Blood Urea Nitrogen 81 H Creatinine 7.78 H Est Glomerular Filtrat 7 L Rate mL/min Glucose Level 190 Calcium Level 7.8 L Total Bilirubin 0.5 Direct Bilirubin 0.00 Indirect Bilirubin 0.5 Aspartate Amino 31 Transf (AST/SGOT) Alanine 22 Aminotransferase (ALT/SG PT) Alkaline Phosphatase 245 H Total Protein 8.1 Albumin 3.4 Globulin 4.70 H Albumin/Globulin Ratio 0.72 White Blood Count 20.7 H Red Blood Count 3.31 L Hemoglobin 9.1 L Hematocrit 28.5 L Mean Corpuscular Volume 86.1 Mean Corpuscular 27.5 L Hemoglobin Mean Corpuscular 31.9 L Hemoglobin Concent Red Cell Distribution 17.5 H Width Platelet Count 247 # Mean Platelet Volume 10.8 H Immature Granulocytes % 1.000 H Neutrophils % Segmented Neutrophils 85 H % (Manual) Lymphocytes % Lymphocytes % (Manual) 8 L Monocytes % Monocytes % (Manual) 4 Eosinophils % Eosinophils % (Manual) 3 Basophils % Nucleated Red Blood 0.0 Cells % Immature Granulocytes # 0.210 H Neutrophils # Lymphocytes (Manual) 1.6 Lymphocytes # Monocytes # Monocytes # (Manual) 0.8 Eosinophils # Basophils # Nucleated Red Blood Cells # Platelet Estimate NORMAL Polychromasia 1+ Bedside Glucose 206 102 Test 10/28/18 08:06 10/28/18 10:58 10/28/18 12:17 Bedside Glucose 132 135 White Blood Count 19.3 H Red Blood Count 3.19 L Hemoglobin 8.6 L Hematocrit 27.5 L Mean Corpuscular Volume 86.2 Mean Corpuscular 27.0 L Hemoglobin Mean Corpuscular 31.3 L Hemoglobin Concent Red Cell Distribution 17.3 H Width Platelet Count 318 # Mean Platelet Volume 10.3 Immature Granulocytes % 1.100 H Neutrophils % 86.9 H Lymphocytes % 5.5 L Monocytes % 5.4 Eosinophils % 0.8 Basophils % 0.3 Nucleated Red Blood 0.0 Cells % Immature Granulocytes # 0.210 H Neutrophils # 16.8 H Lymphocytes # 1.1 Monocytes # 1.0 H Eosinophils # 0.2 Basophils # 0.1 Nucleated Red Blood 0.0 Cells # Sodium Level 132 L Potassium Level 4.9 Chloride Level 95 L Carbon Dioxide Level 19 L Anion Gap 18 H Blood Urea Nitrogen 91 H Creatinine 9.15 H Est Glomerular Filtrat 6 L Rate mL/min Glucose Level 140 # Calcium Level 7.6 L Medications Medication Current Medications Oxycodone/ Acetaminophen (Percocet (5/ 325)) 1 tab Q3H PRN PO PAIN LEVEL 1-5 Last administered on 10/26/18at 23:38; Admin Dose 1 TAB; Start 10/07/18 at 21:00 Ondansetron HCl (Zofran Inj) 4 mg Q6H PRN IV NAUSEA AND/OR VOMITING Last administered on 10/21/18 12:10; Admin Dose 4 MG; Start 10/07/18 at 21:00 Famotidine (Pepcid) 20 mg BID PO Last administered on 10/28/18 10:07; Admin Dose 20 MG; Start 10/08/18 at 21:00 Acetaminophen (Tylenol Tab) 650 mg Q3H PRN PO ELEVATED TEMPERATURE Last administered on 10/19/18 21:48; Admin Dose 650 MG; Start 10/07/18 at 21:00 Atorvastatin Calcium (Lipitor) 40 mg HS PO Last administered on 10/27/18 21:12; Admin Dose 40 MG; Start 10/08/18 at 21:00 Insulin Aspart (Novolog Insulin Pen) NOVOLOG *MODERATE* ALGORITHM WITH MEALS BEDTIME SC Last administered on 10/27/18 17:59; Admin Dose 4 UNIT; Start 10/09/18 at 11:30 Glucose (Glutose) 15 gm Q15M PRN PO DECREASED GLUCOSE; Start 10/09/18 at 12:00 Glucose (Glutose) 22.5 gm Q15M PRN PO DECREASED GLUCOSE; Start 10/09/18 at 12:00 Dextrose (D50w Syringe) 25 ml Q15M PRN IV DECREASED GLUCOSE; Start 10/09/18 at 12:00 Dextrose (D50w Syringe) 50 ml Q15M PRN IV DECREASED GLUCOSE; Start 10/09/18 at 12:00 Glucagon (Glucagen) 1 mg Q15M PRN IM DECREASED GLUCOSE; Start 10/09/18 at 12:00 Glucose (Glutose) 15 gm Q15M PRN BUCCAL DECREASED GLUCOSE Last administered on 10/20/18 18:52; Admin Dose 15 GM; Start 10/09/18 at 12:00 Diagnostic Test (Pha) (Accu-Chek) 1 ea AC MEALS AND BEDTIME XX Last administered on 10/27/18 17:44; Admin Dose 1 EA; Start 10/09/18 at 11:00 Insulin Aspart (Novolog Insulin Pen) 8 unit WITH MEALS SC Last administered on 10/28/18 08:10; Admin Dose 8 UNIT; Start 10/10/18 at 11:30 Aspirin (Aspirin) 81 mg DAILY PO Last administered on 10/28/18 10:08; Admin Dose 81 MG; Start 10/13/18 at 09:00 Albumin Human 100 ml @ 100 mls/hr DURING DIALYSIS PRN IV BLOOD PRESSURE SUPPORT Last administered on 10/25/18 21:21; Admin Dose 100 MLS/HR; Start 10/13/18 at 11:30 Magnesium Hydroxide (Milk Of Mag) 30 ml DAILY PRN PO CONSTIPATION; Start 10/16/18 at 06:30 Paroxetine HCl (Paxil Cr) 25 mg DAILY PO Last administered on 10/28/18 10:07; Admin Dose 25 MG; Start 10/16/18 at 11:00 Furosemide (Lasix) 40 mg DAILY PO Last administered on 10/28/18 10:08; Admin Dose 40 MG; Start 10/20/18 at 09:00 Heparin Sodium (Porcine) (Heparin (1000 Units/ml)) 500 unit WITH DIALYSIS HE Last administered on 10/27/18 14:43; Admin Dose 500 UNIT; Start 10/20/18 at 10:00 Heparin Sodium (Porcine) (Heparin (1000 Units/ml)) 1,500 unit WITH DIALYSIS HE Last administered on 10/25/18 21:29; Admin Dose 1,500 UNIT; Start 10/20/18 at 10 :00 Ondansetron HCl (Zofran Tab) 4 mg Q6H PRN PO NAUSEA AND/OR VOMITING; Start 10/20/18 at 17:30 Epoetin Jero-epbx (Retacrit (Esrd)) 10,000 unit MoWeFr@1700 SC Last administered on 10/27/18 17:44; Admin Dose 10,000 UNIT; Start 10/24/18 at 17:00 Guaifenesin/ Dextromethorphan (Robitussin Dm Liquid Cup) 10 ml Q4H PRN PO cough Last administered on 10/25/18 15:49; Admin Dose 10 ML; Start 10/24/18 at 11:00 Insulin Glargine (Lantus) 20 units DAILY@0830 SC Last administered on 10/28/18 08:10; Admin Dose 20 UNITS; Start 10/26/18 at 08:30 Apixaban (Eliquis) 5 mg BID PO Last administered on 10/28/18 10:07; Admin Dose 5 MG; Start 10/27/18 at 21:00 PAUL LINDER MD Oct 28, 2018 14:21
--- NOTE | 2018-10-28 19:27 | CONS ---
Assessment/Plan Assessment/Plan Hospital Course (Demo Recall) Afib/flutter: new onset, rates controlled. Now on Eliquis Cholecystitis: started on antibiotics. Seen on CT. No symptoms or exam findings CAD s/p CABG: CABG x4 10/07/18, ÁLVAREZ to LAD, SVG to ramus, SVG to OM1 sequenced to OM2. Doing well. Extubated 10/08, off pressors NSTEMI: Trop peak 1.1 and trended down. S/p cath 09/30/18 with diffuse multivessel CAD. CABG as above Upper GI bleed: due to anastomotic ulcer seen on EGD 09/26. No bleeding since. Hgb relatively stable. Anemia: due to above. s/p 5 units PRBCs and 2 units intraop. [place]: Kaylee 1. Not on BB. No pauses or high grade block. 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 Unable to place right IJ. Now s/p left femoral permacath 10/24 but again clotted HTN H/o Bill[place]th Depression: now on meds -f/u case management for transfer. Will need to be done soon as he needs HD -Eliquis -antibiotics -ASA 81mg -continue to hold metoprolol as pt has bradycardia -lipitor 40mg -lasix 40mg PO -HD per nephrology Consultation Date/Type/Reason Admit Date/Time September 24, 2018 at 08:08 Initial Consult Date 09/24/18 Type of Consult Cardiology Date/Time of Note DATE: 10/28/18 TIME: 19:25 24 HR Interval Summary Free Text/Dictation Unfortunately the HD catheter clotted again. No further options here at [facility] so transfer is being arranged. Exam/Review of Systems Vital Signs Vitals Vital Signs Date Temp Pulse Resp B/P (MAP) Pulse Ox O2 O2 Flow FiO2 Time Delivery Rate 10/28/18 2.0 18:41 10/28/18 97.9 73 17 116/60 97 Nasal 14:20 (78) Cannula Intake and Output 10/27/18 10/27/18 10/28/18 1515:00 23:00 07:00 IntakeIntake Total 1000 ml BalanceBalance 1000 ml Exam Constitutional: No alert (sleeping) Head: normocephalic, atraumatic Neck: No jvd Respiratory: diminished breath sounds; No clear to auscultation Cardiovascular: regular rate and rhythm; No edema Gastrointestinal: soft, non-tender; No distended Musculoskeletal: No nl extremities to inspection 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: No nl mental status Labs Result Diagram: 10/28/18 1058 10/28/18 1058 Results 24hrs Laboratory Tests Test 10/27/18 21:09 10/28/18 08:06 10/28/18 10:58 10/28/18 12:17 Bedside Glucose 102 132 135 White Blood Count 19.3 H Red Blood Count 3.19 L Hemoglobin 8.6 L Hematocrit 27.5 L Mean Corpuscular Volume 86.2 Mean Corpuscular 27.0 L Hemoglobin Mean Corpuscular 31.3 L Hemoglobin Concent Red Cell Distribution 17.3 H Width Platelet Count 318 # Mean Platelet Volume 10.3 Immature Granulocytes % 1.100 H Neutrophils % 86.9 H Lymphocytes % 5.5 L Monocytes % 5.4 Eosinophils % 0.8 Basophils % 0.3 Nucleated Red Blood 0.0 Cells % Immature Granulocytes # 0.210 H Neutrophils # 16.8 H Lymphocytes # 1.1 Monocytes # 1.0 H Eosinophils # 0.2 Basophils # 0.1 Nucleated Red Blood 0.0 Cells # Sodium Level 132 L Potassium Level 4.9 Chloride Level 95 L Carbon Dioxide Level 19 L Anion Gap 18 H Blood Urea Nitrogen 91 H Creatinine 9.15 H Est Glomerular Filtrat 6 L Rate mL/min Glucose Level 140 # Calcium Level 7.6 L Test 10/28/18 17:42 Bedside Glucose 158 Medications Medications Current Medications Oxycodone/ Acetaminophen (Percocet (5/ 325)) 1 tab Q3H PRN PO PAIN LEVEL 1-5 Last administered on 10/26/18 23:38; Admin Dose 1 TAB; Start 10/07/18 at 21:00 Ondansetron HCl (Zofran Inj) 4 mg Q6H PRN IV NAUSEA AND/OR VOMITING Last administered on 10/21/18 12:10; Admin Dose 4 MG; Start 10/07/18 at 21:00 Famotidine (Pepcid) 20 mg BID PO Last administered on 10/28/18at 10:07; Admin Dose 20 MG; Start 10/08/18 at 21:00 Acetaminophen (Tylenol Tab) 650 mg Q3H PRN PO ELEVATED TEMPERATURE Last administered on 10/19/18 21:48; Admin Dose 650 MG; Start 10/07/18 at 21:00 Atorvastatin Calcium (Lipitor) 40 mg HS PO Last administered on 10/27/18 21:12; Admin Dose 40 MG; Start 10/08/18 at 21:00 Insulin Aspart (Novolog Insulin Pen) NOVOLOG *MODERATE* ALGORITHM WITH MEALS BEDTIME SC Last administered on 10/27/18 17:59; Admin Dose 4 UNIT; Start 10/09/18 at 11:30 Glucose (Glutose) 15 gm Q15M PRN PO DECREASED GLUCOSE; Start 10/09/18 at 12:00 Glucose (Glutose) 22.5 gm Q15M PRN PO DECREASED GLUCOSE; Start 10/09/18 at 12 :00 Dextrose (D50w Syringe) 25 ml Q15M PRN IV DECREASED GLUCOSE; Start 10/09/18 at 12:00 Dextrose (D50w Syringe) 50 ml Q15M PRN IV DECREASED GLUCOSE; Start 10/09/18 at 12:00 Glucagon (Glucagen) 1 mg Q15M PRN IM DECREASED GLUCOSE; Start 10/09/18 at 12:00 Glucose (Glutose) 15 gm Q15M PRN BUCCAL DECREASED GLUCOSE Last administered on 10/20/18 18:52; Admin Dose 15 GM; Start 10/09/18 at 12:00 Diagnostic Test (Pha) (Accu-Chek) 1 ea AC MEALS AND BEDTIME XX Last administered on 10/27/18 17:44; Admin Dose 1 EA; Start 10/09/18 at 11:00 Insulin Aspart (Novolog Insulin Pen) 8 unit WITH MEALS SC Last administered on 10/28/18 08:10; Admin Dose 8 UNIT; Start 10/10/18 at 11:30 Aspirin (Aspirin) 81 mg DAILY PO Last administered on 10/28/18 10:08; Admin Dose 81 MG; Start 10/13/18 at 09:00 Albumin Human 100 ml @ 100 mls/hr DURING DIALYSIS PRN IV BLOOD PRESSURE SUPPORT Last administered on 10/25/18 21:21; Admin Dose 100 MLS/HR; Start 10/13/18 at 11:30 Magnesium Hydroxide (Milk Of Mag) 30 ml DAILY PRN PO CONSTIPATION; Start 10/16/18 at 06:30 Paroxetine HCl (Paxil Cr) 25 mg DAILY PO Last administered on 10/28/18 10:07; Admin Dose 25 MG; Start 10/16/18 at 11:00 Furosemide (Lasix) 40 mg DAILY PO Last administered on 10/28/18 10:08; Admin Dose 40 MG; Start 10/20/18 at 09:00 Heparin Sodium (Porcine) (Heparin (1000 Units/ml)) 500 unit WITH DIALYSIS HE Last administered on 10/27/18 14:43; Admin Dose 500 UNIT; Start 10/20/18 at 10:00 Heparin Sodium (Porcine) (Heparin (1000 Units/ml)) 1,500 unit WITH DIALYSIS HE Last administered on 10/25/18 21:29; Admin Dose 1,500 UNIT; Start 10/20/18 at 10:00 Ondansetron HCl (Zofran Tab) 4 mg Q6H PRN PO NAUSEA AND/OR VOMITING; Start 10/20/18 at 17:30 Epoetin Jero-epbx (Retacrit (Esrd)) 10,000 unit MoWeFr@1700 SC Last administered on 10/27/18 17:44; Admin Dose 10,000 UNIT; Start 10/24/18 at 17:00 Guaifenesin/ Dextromethorphan (Robitussin Dm Liquid Cup) 10 ml Q4H PRN PO cough Last administered on 10/25/18 15:49; Admin Dose 10 ML; Start 10/24/18 at 11:00 Insulin Glargine (Lantus) 20 units DAILY@0830 SC Last administered on 10/28/18 08:10; Admin Dose 20 UNITS; Start 10/26/18 at 08:30 Ciprofloxacin (Cipro) 500 mg DAILY@06 GTB ; Start 10/29/18 at 06:00; Stop 11/01/18 at 05:59 Apixaban (Eliquis) 2.5 mg BID PO ; Start 10/28/18 at 21:00 LAVON SEE Oct 28, 2018 19:27
[2018-10-28 20:00] VITALS: BP 114/49; PULSE 76; RESP 18
[2018-10-28] MEDS: ATORVASTATIN 40 MG TAB PO SCH (21:09)
--- NOTE | 2018-10-28 22:10 | PN ---
Date/Time of Note Date/Time of Note DATE: 10/28/18 TIME: 22:07 Assessment/Plan Lines/Catheters IV Catheter Type (from Nrsg): Mid Line Pierre in Place (from Nrsg): No Assessment/Plan Chief Complaint/Hosp Course -Bilateral lower extremity atherosclerosis with left lower extremity with left lower extremity third toe gangrene: It seems that the patient's left lower e xtremity third toe has become dry gangrene and currently stable. Unfortunately his first and second toe have also become gangrene with no significant erythema. The patient's foot pain has gradually improved since we had seen him a month ago and followed him in the office over the past few weeks. From a vascular surgery standpoint, recommend no current intervention as the patient had episode of u pper gastrointestinal bleed and subsequently CABG. We are hoping that the patient's lower extremity atherosclerotic disease will not worsen during this period of time. Resume anticoagulation and antiplatelet therapy when cleared by multidisciplinary team. There is concern he may require an amputation should he not improve and develop worsening gangrene. This was discussed in detail with the family given his plethora of medical conditions -Bilateral lower extremity varicose veins and edema: The patient has component of mixed disease (venous insufficiency and arterial sufficiency). At the [facility], we recommend elevation of the bilateral lower extremities while at rest. No further intervention will be needed and can be followed as an outpatient in regards to venous insufficiency. -End-stage renal disease: At the moment the patient's left upper extremity fistula is nonfunctional. 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 I've been asked by our multidisciplinary team to re-evaluate. Upon lower extremity venogram there is large collateralization that has developed with the iliac veins secondary to the infrarenal IVC. I have thoroughly spoken with the mohamud grissom's family and at the bedside regarding further interventions and they understand the full scope of what is involved and limitation at [facility]. As the patient will require advanced intervention for dialysis access will need to be transferred to a tertiary center secondary to limited resources. Our multidisciplinary team has agreed with the plan and involved in the decision. Certified sustainable design consultant present. Subjective 24 Hr Interval Summary unable to undergo HD via catheter Exam/Review of Systems Vital Signs Vitals Vital Signs Date Temp Pulse Resp B/P (MAP) Pulse Ox O2 O2 Flow FiO2 Time Delivery Rate 10/29/18 75 134/63 08:05 (86) 10/29/18 2.0 02:07 10/29/18 97.6 17 94 02:00 10/28/18 Nasal 14:20 Cannula Intake and Output 10/28/18 10/28/18 10/29/18 1515:00 23:00 07:00 IntakeIntake Total 290 ml 100 ml BalanceBalance 290 ml 100 ml Results Result Diagram: 10/28/18 1058 10/28/18 1058 VANIA PEREYRA MD Oct 28, 2018 22:10
[2018-10-29] VITALS (20 sets, daily range): BP systolic 90–140; BP diastolic 40–63; PULSE 45–86; RESP 17–20
[2018-10-29] MEDS: CIPROFLOXACIN 500 MG TAB GTB SCH (05:42)
[2018-10-29] MEDS: ACCU-CHEK XX SCH ×4 (07:30→20:20)
[2018-10-29] MEDS: INSULIN ASPART [NOVOLOG] 3 ML PEN SC SCH ×7 (07:35→20:20)
--- NOTE | 2018-10-29 08:42 | PN ---
Date/Time of Note Date/Time of Note DATE: 10/29/18 TIME: 08:38 Assessment/Plan Lines/Catheters IV Catheter Type (from Nrsg): Mid Line Pierre in Place (from Nrsg): No Assessment/Plan Chief Complaint/Hosp Course -Bilateral lower extremity atherosclerosis with left lower extremity with left lower extremity gangrene: It seems that the patient's left lower extremity t hird toe has become dry gangrene and currently stable. Unfortunately his first and second toe have also become gangrene with no significant erythema. The patient's foot pain has gradually improved since we had seen him a month ago and followed him in the office over the past few weeks. From a vascular surgery standpoint, recommend no current intervention as the patient had episode of upper gastrointestinal bleed and subsequently CABG. We are hoping that the patient's lower extremity atherosclerotic disease will not worsen during this period of time. Resume anticoagulation and antiplatelet therapy when cleared by multidisciplinary team. There is concern he may require an amputation should he not improve and develop worsening gangrene. This was discussed in detail with the family given his plethora of medical conditions -Bilateral lower extremity varicose veins and edema: The patient has component of mixed disease (venous insufficiency and arterial sufficiency). At the moment, we recommend elevation of the bilateral lower extremities while at rest. No further intervention will be needed and can be followed as an outpatient in regards to venous insufficiency. -End-stage renal disease: At the moment the patient's left upper extremity fistula is nonfunctional. 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 I've been asked by our multidisciplinary team to re-evaluate. Upon lower extremity venogram there is large collateralization that has developed with the iliac veins secondary to the infrarenal IVC. I have thoroughly spoken with the patient's family and at the bedside regarding further interventions and they understand the full scope of what is involved and limitations at [facility]. Unable to perform multidisciplinary approach for transhepatic catheter intervention and no IR interventionalist available. Further, may be a candidate for azygous catheter placement however unable to perform re-canalization secondary to limitation of our angio suite. As the patient will require advanced intervention for dialysis access will need to be transferred to a tertiary center secondary to limited resources. Our multidisciplinary team has agreed with the plan and involved in the decision. Certified furniture assembler present. Subjective 24 Hr Interval Summary no new changes. unable to undergo dialysis Exam/Review of Systems Vital Signs Vitals Vital Signs Date Temp Pulse Resp B/P (MAP) Pulse Ox O2 O2 Flow FiO2 Time Delivery Rate 11/06/18 97.4 85 18 100/59 98 Room Air 07:59 (73) 11/06/18 2.0 05:00 11/05/18 21 23:48 Intake and Output 11/05/18 11/05/18 11/06/18 1515:00 23:00 07:00 IntakeIntake Total 800 ml OutputOutput Total 1600 ml BalanceBalance -1600 ml 800 ml Exam Free Text/Dictation GENERAL: Awake. PULMONARY: Coarse BS bilaterally, CARDIOVASCULAR: S1, S2 present. surgical incision healed ABDOMEN: Soft, nontender, nondistended. Bowel sounds positive. Large truncal obesity. EXTREMITIES: Right lower extremity palpable femoral pulse, nonpalpable pedal pulse. Motor, sensory intact. Cap refill 3 to 4 seconds. Presence of varicose veins and lar ge leg. Left lower extremity palpable femoral pulse, nonpalpable pedal pulse. Motor, sensory intact. Cap refill 3 to 4 seconds. Third toe gangrene, First and second toe with previous bluish discoloration and formation of gangrene now and extending to the plantar. Heel gangrene developing, groin catheter intact Varicose veins and edema of the left lower extremity with presence of mild lipodermatosclerosis. Left upper extremity: Palpable brachial pulse, motor/sensory intact, fistula with bruit and thrill not present Results Result Diagram: 11/06/18 0634 11/06/18 0634 VANIA PEREYRA MD Oct 29, 2018 08:42
[2018-10-29] MEDS: PAROXETINE (CR) 12.5 MG TAB PO SCH (08:55)
[2018-10-29] MEDS: FAMOTIDINE 20 MG TAB PO SCH ×2 (08:56→20:20)
[2018-10-29] MEDS: APIXABAN 5 MG TABLET PO SCH ×2 (08:56→20:20)
[2018-10-29] MEDS: ASPIRIN 81 MG TAB PO SCH (08:56)
[2018-10-29] MEDS: FUROSEMIDE 40 MG TAB PO SCH (08:57)
[2018-10-29] MEDS: INSULIN GLARGINE [LANTus] (100 UNITS/ML) SYG SC SCH (08:59)
--- NOTE | 2018-10-29 10:13 | CONS ---
Assessment/Plan Assessment/Plan Assessment/Plan (Daily) 1. acute Hyperkalemia due to GI bleeding- resolved 2.Acute fluid overload- now resolved 3. acute GI bleeding causing acute blood loss anemia- S/p Status post EGD/colonoscopy 09/27/19 -Anastomosis ulcer -Normal colonoscopy 4. Severe Anemia with Hb 5.8 on admission s/p 5 U PRBC transfusion for GI ble eding during this admission - ot also has anemia of ESRD 5. H/O HTN 6. H/O peripherla vascular disease 7. ESRD on HD -[facility] for scheduled HD on MW 8. 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 Unable to place right IJ by IR due to central stenosis. Now s/p left femoral permacath 10/24 but again clotted- not working , last HD was done on Saturday10/25/18- Discussed with Dr. Velasco - Recommended for higher level of care for diffficult HD access, will need IR or vascular surgery at Tertiary center to address HD access establishment due to IVC thormbosis and Central stenosis will attempt to do HD today with heparin today and if cleared by Vascular surgeyr will start eliquis 5 mg pO BID Continue lasix to 40mg Po daily Epogen 68871 units SQ MWF will follow up Consultation Date/Type/Reason Admit Date/Time September 24, 2018 at 08:08 Initial Consult Date 09/24/18 Type of Consult NEPHROLOGY Date/Time of Note DATE: 10/29/18 TIME: 10:13 Exam/Review of Systems Exam Vitals Vital Signs Date Temp Pulse Resp B/P (MAP) Pulse Ox O2 O2 Flow FiO2 Time Delivery Rate 10/29/18 97.9 08:39 10/29/18 75 134/63 08:05 (86) 10/29/18 2.0 02:07 10/29/18 17 94 02:00 10/28/18 Nasal 14:20 Cannula Intake and Output 10/28/18 10/28/18 10/29/18 1515:00 23:00 07:00 IntakeIntake Total 290 ml 100 ml BalanceBalance 290 ml 100 ml Exam Constitutional: alert, awake no acute distress Neck: supple, no JVD, no LAD Respiratory: crackles/rales, diminished breath sounds Cardiovascular: regular rate and rhythm, nl pulses, Scar healthy Gastrointestinal: soft, non-tender Musculoskeletal: swelling Extremities: 1+ pitting edema, left groin permacath 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: awake, alert, non focal Results Result Diagram: 10/28/18 1058 10/28/18 1058 Results 24hrs Laboratory Tests Test 10/28/18 10:58 10/28/18 12:17 10/28/18 17:42 10/28/18 21:08 White Blood Count 19.3 H Red Blood Count 3.19 L Hemoglobin 8.6 L Hematocrit 27.5 L Mean Corpuscular Volume 86.2 Mean Corpuscular 27.0 L Hemoglobin Mean Corpuscular 31.3 L Hemoglobin Concent Red Cell Distribution 17.3 H Width Platelet Count 318 # Mean Platelet Volume 10.3 Immature Granulocytes % 1.100 H Neutrophils % 86.9 H Lymphocytes % 5.5 L Monocytes % 5.4 Eosinophils % 0.8 Basophils % 0.3 Nucleated Red Blood 0.0 Cells % Immature Granulocytes # 0.210 H Neutrophils # 16.8 H Lymphocytes # 1.1 Monocytes # 1.0 H Eosinophils # 0.2 Basophils # 0.1 Nucleated Red Blood 0.0 Cells # Sodium Level 132 L Potassium Level 4.9 Chloride Level 95 L Carbon Dioxide Level 19 L Anion Gap 18 H Blood Urea Nitrogen 91 H Creatinine 9.15 H Est Glomerular Filtrat 6 L Rate mL/min Glucose Level 140 # Calcium Level 7.6 L Bedside Glucose 135 158 180 Test 10/29/18 07:56 Bedside Glucose 156 Medications Medication Current Medications Oxycodone/ Acetaminophen (Percocet (5/ 325)) 1 tab Q3H PRN PO PAIN LEVEL 1-5 Last administered on 10/26/18at 23:38; Admin Dose 1 TAB; Start 10/07/18 at 21:00 Ondansetron HCl (Zofran Inj) 4 mg Q6H PRN IV NAUSEA AND/OR VOMITING Last administered on 10/21/18at 12:10; Admin Dose 4 MG; Start 10/07/18 at 21:00 Famotidine (Pepcid) 20 mg BID PO Last administered on 10/29/18at 08:56; Admin Dose 20 MG; Start 10/08/18 at 21:00 Acetaminophen (Tylenol Tab) 650 mg Q3H PRN PO ELEVATED TEMPERATURE Last administered on 10/19/18 21:48; Admin Dose 650 MG; Start 10/07/18 at 21:00 Atorvastatin Calcium (Lipitor) 40 mg HS PO Last administered on 10/28/18 21:09; Admin Dose 40 MG; Start 10/08/18 at 21:00 Insulin Aspart (Novolog Insulin Pen) NOVOLOG *MODERATE* ALGORITHM WITH MEALS BEDTIME SC Last administered on 10/27/18 17:59; Admin Dose 4 UNIT; Start 10/09/18 at 11:30 Glucose (Glutose) 15 gm Q15M PRN PO DECREASED GLUCOSE; Start 10/09/18 at 12:00 Glucose (Glutose) 22.5 gm Q15M PRN PO DECREASED GLUCOSE; Start 10/09/18 at 12:00 Dextrose (D50w Syringe) 25 ml Q15M PRN IV DECREASED GLUCOSE; Start 10/09/18 at 12:00 Dextrose (D50w Syringe) 50 ml Q15M PRN IV DECREASED GLUCOSE; Start 10/09/18 at 12:00 Glucagon (Glucagen) 1 mg Q15M PRN IM DECREASED GLUCOSE; Start 10/09/18 at 12:00 Glucose (Glutose) 15 gm Q15M PRN BUCCAL DECREASED GLUCOSE Last administered on 10/20/18 18:52; Admin Dose 15 GM; Start 10/09/18 at 12:00 Diagnostic Test (Pha) (Accu-Chek) 1 ea AC MEALS AND BEDTIME XX Last administered on 10/29/18 07:30; Admin Dose 1 EA; Start 10/09/18 at 11:00 Insulin Aspart (Novolog Insulin Pen) 8 unit WITH MEALS SC Last administered on 10/28/18 08:10; Admin Dose 8 UNIT; Start 10/10/18 at 11:30 Aspirin (Aspirin) 81 mg DAILY PO Last administered on 10/29/18 08:56; Admin Dose 81 MG; Start 10/13/18 at 09:00 Albumin Human 100 ml @ 100 mls/hr DURING DIALYSIS PRN IV BLOOD PRESSURE SUPPORT Last administered on 10/25/18 21:21; Admin Dose 100 MLS/HR; Start 10/13/18 at 11:30 Magnesium Hydroxide (Milk Of Mag) 30 ml DAILY PRN PO CONSTIPATION; Start 10/16/18 at 06:30 Paroxetine HCl (Paxil Cr) 25 mg DAILY PO Last administered on 10/29/18 08:55; Admin Dose 25 MG; Start 10/16/18 at 11:00 Furosemide (Lasix) 40 mg DAILY PO Last administered on 10/29/18 08:57; Admin Dose 40 MG; Start 10/20/18 at 09:00 Heparin Sodium (Porcine) (Heparin (1000 Units/ml)) 500 unit WITH DIALYSIS HE Last administered on 10/27/18 14:43; Admin Dose 500 UNIT; Start 10/20/18 at 10:00 Heparin Sodium (Porcine) (Heparin (1000 Units/ml)) 1,500 unit WITH DIALYSIS HE Last administered on 10/25/18 21:29; Admin Dose 1,500 UNIT; Start 10/20/18 at 10:00 Ondansetron HCl (Zofran Tab) 4 mg Q6H PRN PO NAUSEA AND/OR VOMITING; Start 10/20/18 at 17:30 Epoetin Jero-epbx (Retacrit (Esrd)) 10,000 unit MoWeFr@1700 SC Last administered on 10/27/18 17:44; Admin Dose 10,000 UNIT; Start 10/24/18 at 17:00 Guaifenesin/ Dextromethorphan (Robitussin Dm Liquid Cup) 10 ml Q4H PRN PO cough Last administered on 10/25/18 15:49; Admin Dose 10 ML; Start 10/24/18 at 11:00 Insulin Glargine (Lantus) 20 units DAILY@0830 SC Last administered on 10/29/18 08:59; Admin Dose 20 UNITS; Start 10/26/18 at 08:30 Ciprofloxacin (Cipro) 500 mg DAILY@06 GTB Last administered on 10/29/18 05:42; Admin Dose 500 MG; Start 10/29/18 at 06:00; Stop 11/01/18 at 05:59 Apixaban (Eliquis) 2.5 mg BID PO Last administered on 10/29/18 08:56; Admin Dose 2.5 MG; Start 10/28/18 at 21:00 RAQUEL MCDOWELL MD Oct 29, 2018 10:13
[2018-10-29] MEDS: BALSAM PERU/CASTOR OIL 60 GM TUBE TOP SCH (12:47)
[2018-10-29] MEDS: HEPARIN 1000 UNITS/ML 10 ML INJ HE SCH ×2 (14:26→14:31)
--- NOTE | 2018-10-29 14:55 | CONS ---
Assessment/Plan Assessment/Plan Hospital Course (Demo Recall) Afib/flutter: new onset, rates controlled. Now on Eliquis Cholecystitis: started on antibiotics. Seen on CT. No symptoms or exam findings CAD s/p CABG: CABG x4 10/07/18, ÁLVAREZ to LAD, SVG to ramus, SVG to OM1 sequenced to OM2. Doing well. Extubated 10/08, off pressors NSTEMI: Trop peak 1.1 and trended down. S/p cath 09/30/18 with diffuse multivessel CAD. CABG as above Upper GI bleed: due to anastomotic ulcer seen on EGD 09/26. No bleeding since. Hgb relatively stable. Anemia: due to above. s/p 5 units PRBCs and 2 units intraop. Kurt: Kaylee 1. Not on BB. No pauses or high grade block. 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 Unable to place right IJ. Now s/p left femoral permacath 10/24 which clotted but started to work again HTN H/o Billroth Depression: now on meds -f/u case management for transfer. Still needs a more permanent solution to his HD access issue -increase to Eliquis 5mg BID as he is <80 years old and >60kg even on HD -antibiotics -ASA 81mg -continue to hold metoprolol as pt has bradycardia -lipitor 40mg -lasix 40mg PO -HD per nephrology Consultation Date/Type/Reason Admit Date/Time September 24, 2018 at 08:08 Initial Consult Date 09/24/18 Type of Consult Cardiology Date/Time of Note DATE: 10/29/18 TIME: 14:53 24 HR Interval Summary Free Text/Dictation Luckily the HD nurse was able to use the HD cath again. Transfer is still pending Exam/Review of Systems Vital Signs Vitals Vital Signs Date Temp Pulse Resp B/P (MAP) Pulse Ox O2 O2 Flow FiO2 Time Delivery Rate 10/29/18 97.9 08:39 10/29/18 75 134/63 08:05 (86) 10/29/18 2.0 02:07 10/29/18 17 94 02:00 10/28/18 Nasal 14:20 Cannula Intake and Output 10/28/18 10/28/18 10/29/18 1515:00 23:00 07:00 IntakeIntake Total 290 ml 100 ml BalanceBalance 290 ml 100 ml Exam Constitutional: alert, oriented Psych: no complaints, nl mood/affect Head: normocephalic, atraumatic Neck: No jvd Respiratory: diminished breath sounds; No clear to auscultation Cardiovascular: regular rate and rhythm; No edema Gastrointestinal: soft, non-tender; No distended 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: nl mental status, nl speech Labs Result Diagram: 10/28/18 1058 10/28/18 1058 Results 24hrs Laboratory Tests Test 10/28/18 17:42 10/28/18 21:08 10/29/18 07:56 10/29/18 12:28 Bedside Glucose 158 180 156 227 H Medications Medications Current Medications Oxycodone/ Acetaminophen (Percocet (5/ 325)) 1 tab Q3H PRN PO PAIN LEVEL 1-5 Last administered on 10/26/18 23:38; Admin Dose 1 TAB; Start 10/07/18 at 21:00 Ondansetron HCl (Zofran Inj) 4 mg Q6H PRN IV NAUSEA AND/OR VOMITING Last administered on 10/21/18 12:10; Admin Dose 4 MG; Start 10/07/18 at 21:00 Famotidine (Pepcid) 20 mg BID PO Last administered on 10/29/18 08:56; Admin Dose 20 MG; Start 10/08/18 at 21:00 Acetaminophen (Tylenol Tab) 650 mg Q3H PRN PO ELEVATED TEMPERATURE Last administered on 10/19/18 21:48; Admin Dose 650 MG; Start 10/07/18 at 21:00 Atorvastatin Calcium (Lipitor) 40 mg HS PO Last administered on 10/28/18 21:09; Admin Dose 40 MG; Start 10/08/18 at 21:00 Insulin Aspart (Novolog Insulin Pen) NOVOLOG *MODERATE* ALGORITHM WITH MEALS BEDTIME SC Last administered on 10/27/18 17:59; Admin Dose 4 UNIT; Start 10/09/18 at 11:30 Glucose (Glutose) 15 gm Q15M PRN PO DECREASED GLUCOSE; Start 10/09/18 at 12:00 Glucose (Glutose) 22.5 gm Q15M PRN PO DECREASED GLUCOSE; Start 10/09/18 at 12:0 0 Dextrose (D50w Syringe) 25 ml Q15M PRN IV DECREASED GLUCOSE; Start 10/09/18 at 12:00 Dextrose (D50w Syringe) 50 ml Q15M PRN IV DECREASED GLUCOSE; Start 10/09/18 at 12:00 Glucagon (Glucagen) 1 mg Q15M PRN IM DECREASED GLUCOSE; Start 10/09/18 at 12:00 Glucose (Glutose) 15 gm Q15M PRN BUCCAL DECREASED GLUCOSE Last administered on 10/20/18 18:52; Admin Dose 15 GM; Start 10/09/18 at 12:00 Diagnostic Test (Pha) (Accu-Chek) 1 ea AC MEALS AND BEDTIME XX Last administered on 10/29/18 07:30; Admin Dose 1 EA; Start 10/09/18 at 11:00 Insulin Aspart (Novolog Insulin Pen) 8 unit WITH MEALS SC Last administered on 10/29/18 12:32; Admin Dose 8 UNIT; Start 10/10/18 at 11:30 Aspirin (Aspirin) 81 mg DAILY PO Last administered on 10/29/18 08:56; Admin Dose 81 MG; Start 10/13/18 at 09:00 Albumin Human 100 ml @ 100 mls/hr DURING DIALYSIS PRN IV BLOOD PRESSURE SUPPORT Last administered on 10/25/18 21:21; Admin Dose 100 MLS/HR; Start 10/13/18 at 11:30 Magnesium Hydroxide (Milk Of Mag) 30 ml DAILY PRN PO CONSTIPATION; Start 10/16/18 at 06:30 Paroxetine HCl (Paxil Cr) 25 mg DAILY PO Last administered on 10/29/18 08:55; Admin Dose 25 MG; Start 10/16/18 at 11:00 Furosemide (Lasix) 40 mg DAILY PO Last administered on 10/29/18 08:57; Admin Dose 40 MG; Start 10/20/18 at 09:00 Heparin Sodium (Porcine) (Heparin (1000 Units/ml)) 500 unit WITH DIALYSIS HE Last administered on 10/29/18 14:26; Admin Dose 500 UNIT; Start 10/20/18 at 10:00 Heparin Sodium (Porcine) (Heparin (1000 Units/ml)) 1,500 unit WITH DIALYSIS HE Last administered on 10/29/18 14:31; Admin Dose 1,500 UNIT; Start 10/20/18 at 10:00 Ondansetron HCl (Zofran Tab) 4 mg Q6H PRN PO NAUSEA AND/OR VOMITING; Start 10/20/18 at 17:30 Epoetin Jero-epbx (Retacrit (Esrd)) 10,000 unit MoWeFr@1700 SC Last administered on 10/27/18at 17:44; Admin Dose 10,000 UNIT; Start 10/24/18 at 17:00 Guaifenesin/ Dextromethorphan (Robitussin Dm Liquid Cup) 10 ml Q4H PRN PO cough Last administered on 10/25/18at 15:49; Admin Dose 10 ML; Start 10/24/18 at 11:00 Insulin Glargine (Lantus) 20 units DAILY@0830 SC Last administered on 10/29/18 08:59; Admin Dose 20 UNITS; Start 10/26/18 at 08:30 Ciprofloxacin (Cipro) 500 mg DAILY@06 GTB Last administered on 10/29/18at 05:42; Admin Dose 500 MG; Start 10/29/18 at 06:00; Stop 11/01/18 at 05:59 Apixaban (Eliquis) 2.5 mg BID PO Last administered on 10/29/18at 08:56; Admin Dose 2.5 MG; Start 10/28/18 at 21:00 Alteplase, Recombinant (Cathflo (Activase)) 4 mg MAY REPEAT X1 PRN CATHETER IF CATHETER REMAINS OCCULUDED; Start 10/29/18 at 14:00 LAVON SEE Oct 29, 2018 14:55
--- NOTE | 2018-10-29 15:58 | PN ---
Date/Time of Note Date/Time of Note DATE: 10/29/18 TIME: 15:55 Assessment/Plan VTE Prophylaxis Risk score (from Ns)>0 risk: 11 SCD applied (from Ns): No SCD contraindicated: other Pharmacological prophylaxis: apixaban Lines/Catheters IV Catheter Type (from [facility]): Mid Line Urinary Cath still in place: No Assessment/Plan Hospital Course SUBJECTIVE: Patient getting hemodialysis. OBJECTIVE: Physical Exam General: Obese, 67 year-old male lying in bed in no apparent distress. HEENT: Normocephalic, atraumatic. Eyes: Anicteric sclerae, conjunctivae clear. ENT: Nasal septum midline, oral mucosa moist. Neck supple. Respiratory: Bilaterally diminished breath sounds. No use of accessory muscles of respiration. No adventitious breath sounds. Cardiovascular: S1, S2 heard. Irregularly irregular rhythm. Dressing over the sternotomy site. Abdomen: Soft, nontender, and nondistended. Bowel sounds positive in all 4 quadrants. Genitourinary: Deferred. Extremities: No cyanosis, no clubbing. Bilateral lower extremity edema. Peripheral pulses palpable. Neurologic: Cranial nerves II through XII grossly intact. The patient is awake, alert, and oriented. Skin: Normal skin turgor. No skin rashes. Labs & Vitals per chart ASSESSMENT & PLAN 67-year-old male with comorbidities including dyslipidemia, diabetes mellitus ty pe 2, end-stage renal disease on hemodialysis, peripheral vascular disease of bilateral lower extremities,with chronic third left toe ulcer and cellulitis who is anticoagulated on Eliquis and Plavix who presented to the emergency room with 3-day duration of malaise, bleeding difficulties, and generalized weakness, who was admitted to inpatient setting for further treatment and evaluation. 1. NSTEMI on 09/28/2018. Status post C on 09/30/2018 that showed diffuse multivessel CAD. Status post CABG x4; ÁLVAREZ to LAD, SVG to ramus, SVG to OM1 sequenced to OM2, on 10/07/2018 Being followed by cardiology. 2. Acute blood loss anemia. Status post esophagogastroduodenoscopy that showed anastomotic ulcer (history of Billroth II). On H2 receptor antagonists. 3. End-stage renal disease on hemodialysis. Continue hemodialysis as per nephrology. 4. 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 Chronic and stable Continue antiplatelet therapy and factor Xa inhibitors. 5. Diabetes mellitus type 2. Continue sliding scale insulin. 6. Acute cholecystitis as per imaging on 10/26/2018. Continue antimicrobial therapy. Not and appropriate candidate for surgical evaluation at this time. 7. Atrial fibrillation/flutter. Continue Eliquis. No BB because of #8. 8. Mobitz type I heart block. Not on beta-blockers. 9. History of a DVT/PE. On Eliquis chronically. 10. Hypertension. Continue antihypertensives. 11. Depression. Continue SSRI. 12. Nonfunctional hemodialysis accesses. Thrombosis of IVC. Status post placement of multiple hemodialysis access by vascular surgery. Still has no reliable HD access. Limited resources available at [facility] Awaiting transfer to return to clinic in facility, where he can have transhepatic catheter intervention Vs azygous catheter placement. 13. Fluids, electrolytes, and nutrition. Carbohydrate controlled, renal diet. 14. DVT prophylaxis. On factor Xa inhibitors. 15. Plan. Continue current management. Await transfer to tertiary care facility to to address the issue with hemodialysis access. Transfer the patient to telemetry floor since the patient is not getting hemodialysis as required and to monitor for any arrhythmias. The patient was seen in collaboration with Dr. Leal. Result Diagram: 10/29/18 1457 10/28/18 1058 Results 24hrs Laboratory Tests Test 10/28/18 17:42 10/28/18 21:08 10/29/18 07:56 10/29/18 12:28 Bedside Glucose 158 180 156 227 H Test 10/29/18 14:57 White Blood Count 21.8 H Red Blood Count 3.35 L Hemoglobin 9.0 L Hematocrit 28.8 L Mean Corpuscular Volume 86.0 Mean Corpuscular 26.9 L Hemoglobin Mean Corpuscular 31.3 L Hemoglobin Concent Red Cell Distribution 17.5 H Width Platelet Count 394 # Mean Platelet Volume 9.8 Immature Granulocytes % 0.500 H Neutrophils % 89.9 H Lymphocytes % 5.0 L Monocytes % 3.5 Eosinophils % 0.9 Basophils % 0.2 Nucleated Red Blood 0.0 Cells % Immature Granulocytes # 0.100 H Neutrophils # 19.6 H Lymphocytes # 1.1 Monocytes # 0.8 Eosinophils # 0.2 Basophils # 0.1 Nucleated Red Blood 0.0 Cells # Sodium Level 143 Potassium Level 2.4 #*L Chloride Level 103 Carbon Dioxide Level 31 # Anion Gap 9 # Blood Urea Nitrogen 15 # Creatinine 2.04 #H Est Glomerular Filtrat 33 L Rate mL/min Glucose Level 106 Calcium Level 8.0 L Magnesium Level 2.0 Exam/Review of Systems Exam Vitals Vital Signs Date Temp Pulse Resp B/P (MAP) Pulse Ox O2 O2 Flow FiO2 Time Delivery Rate 10/29/18 97.3 61 18 121/43 98 Room Air 15:03 (69) 10/29/18 2.0 02:07 Intake and Output 10/28/18 10/28/18 10/29/18 1515:00 23:00 07:00 IntakeIntake Total 290 ml 100 ml BalanceBalance 290 ml 100 ml Results Results 24hrs Laboratory Tests Test 10/28/18 17:42 10/28/18 21:08 10/29/18 07:56 10/29/18 12:28 Bedside Glucose 158 180 156 227 H Test 10/29/18 14:57 White Blood Count 21.8 H Red Blood Count 3.35 L Hemoglobin 9.0 L Hematocrit 28.8 L Mean Corpuscular Volume 86.0 Mean Corpuscular 26.9 L Hemoglobin Mean Corpuscular 31.3 L Hemoglobin Concent Red Cell Distribution 17.5 H Width Platelet Count 394 # Mean Platelet Volume 9.8 Immature Granulocytes % 0.500 H Neutrophils % 89.9 H Lymphocytes % 5.0 L Monocytes % 3.5 Eosinophils % 0.9 Basophils % 0.2 Nucleated Red Blood 0.0 Cells % Immature Granulocytes # 0.100 H Neutrophils # 19.6 H Lymphocytes # 1.1 Monocytes # 0.8 Eosinophils # 0.2 Basophils # 0.1 Nucleated Red Blood 0.0 Cells # Sodium Level 143 Potassium Level 2.4 #*L Chloride Level 103 Carbon Dioxide Level 31 # Anion Gap 9 # Blood Urea Nitrogen 15 # Creatinine 2.04 #H Est Glomerular Filtrat 33 L Rate mL/min Glucose Level 106 Calcium Level 8.0 L Magnesium Level 2.0 Medications Medication Current Medications Oxycodone/ Acetaminophen (Percocet (5/ 325)) 1 tab Q3H PRN PO PAIN LEVEL 1-5 Last administered on 10/26/18at 23:38; Admin Dose 1 TAB; Start 10/07/18 at 21:00 Ondansetron HCl (Zofran Inj) 4 mg Q6H PRN IV NAUSEA AND/OR VOMITING Last administered on 10/21/18 12:10; Admin Dose 4 MG; Start 10/07/18 at 21:00 Famotidine (Pepcid) 20 mg BID PO Last administered on 10/29/18 08:56; Admin Dose 20 MG; Start 10/08/18 at 21:00 Acetaminophen (Tylenol Tab) 650 mg Q3H PRN PO ELEVATED TEMPERATURE Last administered on 10/19/18 21:48; Admin Dose 650 MG; Start 10/07/18 at 21:00 Atorvastatin Calcium (Lipitor) 40 mg HS PO Last administered on 10/28/18 21:09; Admin Dose 40 MG; Start 10/08/18 at 21:00 Insulin Aspart (Novolog Insulin Pen) NOVOLOG *MODERATE* ALGORITHM WITH MEALS BEDTIME SC Last administered on 10/27/18 17:59; Admin Dose 4 UNIT; Start 10/09/18 at 11:30 Glucose (Glutose) 15 gm Q15M PRN PO DECREASED GLUCOSE; Start 10/09/18 at 12:00 Glucose (Glutose) 22.5 gm Q15M PRN PO DECREASED GLUCOSE; Start 10/09/18 at 12:00 Dextrose (D50w Syringe) 25 ml Q15M PRN IV DECREASED GLUCOSE; Start 10/09/18 at 12:00 Dextrose (D50w Syringe) 50 ml Q15M PRN IV DECREASED GLUCOSE; Start 10/09/18 at 12:00 Glucagon (Glucagen) 1 mg Q15M PRN IM DECREASED GLUCOSE; Start 10/09/18 at 12:00 Glucose (Glutose) 15 gm Q15M PRN BUCCAL DECREASED GLUCOSE Last administered on 10/20/18 18:52; Admin Dose 15 GM; Start 10/09/18 at 12:00 Diagnostic Test (Pha) (Accu-Chek) 1 ea AC MEALS AND BEDTIME XX Last administered on 10/29/18 07:30; Admin Dose 1 EA; Start 10/09/18 at 11:00 Insulin Aspart (Novolog Insulin Pen) 8 unit WITH MEALS SC Last administered on 10/29/18 12:32; Admin Dose 8 UNIT; Start 10/10/18 at 11:30 Aspirin (Aspirin) 81 mg DAILY PO Last administered on 10/29/18 08:56; Admin Dose 81 MG; Start 10/13/18 at 09:00 Albumin Human 100 ml @ 100 mls/hr DURING DIALYSIS PRN IV BLOOD PRESSURE SUPPORT Last administered on 10/25/18 21:21; Admin Dose 100 MLS/HR; Start 10/13/18 at 11:30 Magnesium Hydroxide (Milk Of Mag) 30 ml DAILY PRN PO CONSTIPATION; Start 10/16/18 at 06:30 Paroxetine HCl (Paxil Cr) 25 mg DAILY PO Last administered on 10/29/18 08:55; Admin Dose 25 MG; Start 10/16/18 at 11:00 Furosemide (Lasix) 40 mg DAILY PO Last administered on 10/29/18 08:57; Admin Dose 40 MG; Start 10/20/18 at 09:00 Heparin Sodium (Porcine) (Heparin (1000 Units/ml)) 500 unit WITH DIALYSIS HE Last administered on 10/29/18 14:26; Admin Dose 500 UNIT; Start 10/20/18 at 10:00 Heparin Sodium (Porcine) (Heparin (1000 Units/ml)) 1,500 unit WITH DIALYSIS HE Last administered on 10/29/18 14:31; Admin Dose 1,500 UNIT; Start 10/20/18 at 10:00 Ondansetron HCl (Zofran Tab) 4 mg Q6H PRN PO NAUSEA AND/OR VOMITING; Start 10/20/18 at 17:30 Epoetin Jero-epbx (Retacrit (Esrd)) 10,000 unit MoWeFr@1700 SC Last administered on 10/27/18 17:44; Admin Dose 10,000 UNIT; Start 10/24/18 at 17:00 Guaifenesin/ Dextromethorphan (Robitussin Dm Liquid Cup) 10 ml Q4H PRN PO cough Last administered on 10/25/18 15:49; Admin Dose 10 ML; Start 10/24/18 at 11:00 Insulin Glargine (Lantus) 20 units DAILY@0830 SC Last administered on 10/29/18 08:59; Admin Dose 20 UNITS; Start 10/26/18 at 08:30 Ciprofloxacin (Cipro) 500 mg DAILY@06 GTB Last administered on 10/29/18 05:42; Admin Dose 500 MG; Start 10/29/18 at 06:00; Stop 11/01/18 at 05:59 Alteplase, Recombinant (Cathflo (Activase)) 4 mg MAY REPEAT X1 PRN CATHETER IF CATHETER REMAINS OCCULUDED; Start 10/29/18 at 14:00 Apixaban (Eliquis) 5 mg BID PO ; Start 10/29/18 at 21:00 NANY PRIEST NP Oct 29, 2018 15:58
[2018-10-29] MEDS: ALTEPLASE (CATHFLO) 2 MG INJ CATHETER PRN (17:29)
[2018-10-29] MEDS: EPOETIN ALFA-EPBX (ESRD) 10,000 UNIT/ML VIAL SC SCH (18:17)
[2018-10-29] MEDS: ATORVASTATIN 40 MG TAB PO SCH (20:20)
[2018-10-30] VITALS (11 sets, daily range): BP systolic 93–111; BP diastolic 30–62; PULSE 53–89; RESP 18
[2018-10-30] MEDS: CIPROFLOXACIN 500 MG TAB GTB SCH (06:19)
[2018-10-30] MEDS: ACCU-CHEK XX SCH ×4 (07:45→20:15)
[2018-10-30] MEDS: INSULIN GLARGINE [LANTus] (100 UNITS/ML) SYG SC SCH (07:50)
[2018-10-30] MEDS: INSULIN ASPART [NOVOLOG] 3 ML PEN SC SCH ×7 (07:50→20:15)
[2018-10-30] MEDS: PAROXETINE (CR) 12.5 MG TAB PO SCH (08:09)
[2018-10-30] MEDS: FAMOTIDINE 20 MG TAB PO SCH ×2 (08:09→20:15)
[2018-10-30] MEDS: ASPIRIN 81 MG TAB PO SCH (08:09)
[2018-10-30] MEDS: BALSAM PERU/CASTOR OIL 60 GM TUBE TOP SCH (08:10)
[2018-10-30] MEDS: APIXABAN 5 MG TABLET PO SCH ×2 (08:10→20:15)
[2018-10-30] MEDS: FUROSEMIDE 40 MG TAB PO SCH (08:11)
--- NOTE | 2018-10-30 10:08 | PN ---
Date/Time of Note Date/Time of Note DATE: 10/30/18 TIME: 10:07 Assessment/Plan VTE Prophylaxis Risk score (from Ns)>0 risk: 12 SCD applied (from Ns): No SCD contraindicated: other Pharmacological prophylaxis: apixaban Lines/Catheters IV Catheter Type (from [facility]): Mid Line Urinary Cath still in place: No Assessment/Plan Hospital Course SUBJECTIVE: Denies any complaints. OBJECTIVE: Physical Exam General: Obese, 67 year-old male lying in bed in no apparent distress. HEENT: Normocephalic, atraumatic. Eyes: Anicteric sclerae, conjunctivae clear. ENT: Nasal septum midline, oral mucosa moist. Neck supple. Respiratory: Bilaterally diminished breath sounds. No use of accessory muscles of respiration. No adventitious breath sounds. Cardiovascular: S1, S2 heard. Irregularly irregular rhythm. Dressing over the sternotomy site. Abdomen: Soft, nontender, and nondistended. Bowel sounds positive in all 4 quadrants. Genitourinary: Deferred. Extremities: No cyanosis, no clubbing. Bilateral lower extremity edema. Peripheral pulses palpable. Neurologic: Patient is awake and alert. Skin: Normal skin turgor. No skin rashes. Labs & Vitals per chart ASSESSMENT & PLAN 67-year-old male with comorbidities including dyslipidemia, diabetes mellitus type 2, end-stage renal disease on hemodialysis, peripheral vascular disease of bilateral lower extremities,with chronic third left toe ulcer and cellulitis who is anticoagulated on Eliquis and Plavix who presented to the emergency room with 3-day duration of malaise, bleeding difficulties, and generalized weakness, who was admitted to inpatient setting for further treatment and evaluation. 1. NSTEMI on 09/28/2018. Status post C on 09/30/2018 that showed diffuse multivessel CAD. Status post CABG x4; ÁLVAREZ to LAD, SVG to ramus, SVG to OM1 sequenced to OM2, on 10/07/2018 Being followed by cardiology. 2. Acute blood loss anemia. Status post esophagogastroduodenoscopy that showed anastomotic ulcer (history of Billroth II). On H2 receptor antagonists. 3. End-stage renal disease on hemodialysis. Continue hemodialysis as per nephrology. 4. 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 Chronic and stable Continue antiplatelet therapy and factor Xa inhibitors. 5. Diabetes mellitus type 2. Continue sliding scale insulin. 6. Acute cholecystitis as per imaging on 10/26/2018. Continue antimicrobial therapy. Not and appropriate candidate for surgical evaluation at this time. 7. Atrial fibrillation/flutter. Continue Eliquis. No BB because of #8. 8. Mobitz type I heart block. Not on beta-blockers. 9. History of a DVT/PE. On Eliquis chronically. 10. Hypertension. Continue antihypertensives. 11. Depression. Continue SSRI. 12. Nonfunctional hemodialysis accesses. Thrombosis of IVC. Status post placement of multiple hemodialysis access by vascular surgery. Still has no reliable HD access. Limited resources available at [facility] Awaiting transfer to return to clinic in facility, where he can have transhep atic catheter intervention Vs azygous catheter placement. 13. Fluids, electrolytes, and nutrition. Carbohydrate controlled, renal diet. 14. DVT prophylaxis. On factor Xa inhibitors. 15. Plan. Continue current management. Await transfer to tertiary care facility to to address the issue with hemodialysis access. The patient was seen in collaboration with Dr. Leal. Result Diagram: 10/30/18 0712 10/30/18 0712 Results 24hrs Laboratory Tests Test 10/29/18 12:28 10/29/18 14:55 10/29/18 14:57 10/29/18 17:31 Bedside Glucose 227 H 123 Hepatitis B Surface NEGATIVE Antigen White Blood Count 21.8 H Red Blood Count 3.35 L Hemoglobin 9.0 L Hematocrit 28.8 L Mean Corpuscular Volume 86.0 Mean Corpuscular 26.9 L Hemoglobin Mean Corpuscular 31.3 L Hemoglobin Concent Red Cell Distribution 17.5 H Width Platelet Count 394 # Mean Platelet Volume 9.8 Immature Granulocytes % 0.500 H Neutrophils % 89.9 H Lymphocytes % 5.0 L Monocytes % 3.5 Eosinophils % 0.9 Basophils % 0.2 Nucleated Red Blood 0.0 Cells % Immature Granulocytes # 0.100 H Neutrophils # 19.6 H Lymphocytes # 1.1 Monocytes # 0.8 Eosinophils # 0.2 Basophils # 0.1 Nucleated Red Blood 0.0 Cells # Sodium Level 143 Potassium Level 2.4 #*L Chloride Level 103 Carbon Dioxide Level 31 # Anion Gap 9 # Blood Urea Nitrogen 15 # Creatinine 2.04 #H Est Glomerular Filtrat 33 L Rate mL/min Glucose Level 106 Calcium Level 8.0 L Magnesium Level 2.0 Test 10/29/18 20:11 10/29/18 20:19 10/30/18 07:12 10/30/18 07:14 Potassium Level 4.7 # 4.8 Bedside Glucose 164 White Blood Count 16.4 #H Red Blood Count 2.90 L Hemoglobin 7.8 L Hematocrit 25.0 L Mean Corpuscular Volume 86.2 Mean Corpuscular 26.9 L Hemoglobin Mean Corpuscular 31.2 L Hemoglobin Concent Red Cell Distribution 17.3 H Width Platelet Count 316 Mean Platelet Volume 10.2 Immature Granulocytes % 0.900 H Neutrophils % 85.4 H Lymphocytes % 6.3 L Monocytes % 6.7 Eosinophils % 0.4 Basophils % 0.3 Nucleated Red Blood 0.0 Cells % Immature Granulocytes # 0.140 H Neutrophils # 14.0 H Lymphocytes # 1.0 Monocytes # 1.1 H Eosinophils # 0.1 Basophils # 0.1 Nucleated Red Blood 0.0 Cells # Sodium Level 132 L Chloride Level 97 Carbon Dioxide Level 17 #L Anion Gap 18 #H Blood Urea Nitrogen 93 #H Creatinine 9.20 #H Est Glomerular Filtrat 6 L Rate mL/min Glucose Level 175 Calcium Level 7.1 L Phosphorus Level 9.4 H Magnesium Level 2.3 Test 10/30/18 07:44 Bedside Glucose 172 Exam/Review of Systems Exam Vitals Vital Signs Date Temp Pulse Resp B/P (MAP) Pulse Ox O2 O2 Flow FiO2 Time Delivery Rate 10/30/18 77 08:00 10/30/18 98.0 18 111/40 99 07:07 (63) 10/29/18 Room Air 23:57 10/29/18 2.0 21:47 Intake and Output 10/29/18 10/29/18 10/30/18 1515:00 23:00 07:00 IntakeIntake Total 200 ml 500 ml OutputOutput Total 200 ml 1000 ml BalanceBalance 0 ml -1000 ml 500 ml Results Results 24hrs Laboratory Tests Test 10/29/18 12:28 10/29/18 14:55 10/29/18 14:57 10/29/18 17:31 Bedside Glucose 227 H 123 Hepatitis B Surface NEGATIVE Antigen White Blood Count 21.8 H Red Blood Count 3.35 L Hemoglobin 9.0 L Hematocrit 28.8 L Mean Corpuscular Volume 86.0 Mean Corpuscular 26.9 L Hemoglobin Mean Corpuscular 31.3 L Hemoglobin Concent Red Cell Distribution 17.5 H Width Platelet Count 394 # Mean Platelet Volume 9.8 Immature Granulocytes % 0.500 H Neutrophils % 89.9 H Lymphocytes % 5.0 L Monocytes % 3.5 Eosinophils % 0.9 Basophils % 0.2 Nucleated Red Blood 0.0 Cells % Immature Granulocytes # 0.100 H Neutrophils # 19.6 H Lymphocytes # 1.1 Monocytes # 0.8 Eosinophils # 0.2 Basophils # 0.1 Nucleated Red Blood 0.0 Cells # Sodium Level 143 Potassium Level 2.4 #*L Chloride Level 103 Carbon Dioxide Level 31 # Anion Gap 9 # Blood Urea Nitrogen 15 # Creatinine 2.04 #H Est Glomerular Filtrat 33 L Rate mL/min Glucose Level 106 Calcium Level 8.0 L Magnesium Level 2.0 Test 10/29/18 20:11 10/29/18 20:19 10/30/18 07:12 10/30/18 07:14 Potassium Level 4.7 # 4.8 Bedside Glucose 164 White Blood Count 16.4 #H Red Blood Count 2.90 L Hemoglobin 7.8 L Hematocrit 25.0 L Mean Corpuscular Volume 86.2 Mean Corpuscular 26.9 L Hemoglobin Mean Corpuscular 31.2 L Hemoglobin Concent Red Cell Distribution 17.3 H Width Platelet Count 316 Mean Platelet Volume 10.2 Immature Granulocytes % 0.900 H Neutrophils % 85.4 H Lymphocytes % 6.3 L Monocytes % 6.7 Eosinophils % 0.4 Basophils % 0.3 Nucleated Red Blood 0.0 Cells % Immature Granulocytes # 0.140 H Neutrophils # 14.0 H Lymphocytes # 1.0 Monocytes # 1.1 H Eosinophils # 0.1 Basophils # 0.1 Nucleated Red Blood 0.0 Cells # Sodium Level 132 L Chloride Level 97 Carbon Dioxide Level 17 #L Anion Gap 18 #H Blood Urea Nitrogen 93 #H Creatinine 9.20 #H Est Glomerular Filtrat 6 L Rate mL/min Glucose Level 175 Calcium Level 7.1 L Phosphorus Level 9.4 H Magnesium Level 2.3 Test 10/30/18 07:44 Bedside Glucose 172 Medications Medication Current Medications Oxycodone/ Acetaminophen (Percocet (5/ 325)) 1 tab Q3H PRN PO PAIN LEVEL 1-5 Last administered on 10/26/18at 23:38; Admin Dose 1 TAB; Start 10/07/18 at 21:00 Ondansetron HCl (Zofran Inj) 4 mg Q6H PRN IV NAUSEA AND/OR VOMITING Last administered on 10/21/18 12:10; Admin Dose 4 MG; Start 10/07/18 at 21:00 Famotidine (Pepcid) 20 mg BID PO Last administered on 10/30/18 08:09; Admin Dose 20 MG; Start 10/08/18 at 21:00 Acetaminophen (Tylenol Tab) 650 mg Q3H PRN PO ELEVATED TEMPERATURE Last administered on 10/19/18 21:48; Admin Dose 650 MG; Start 10/07/18 at 21:00 Atorvastatin Calcium (Lipitor) 40 mg HS PO Last administered on 10/29/18 20:20; Admin Dose 40 MG; Start 10/08/18 at 21:00 Insulin Aspart (Novolog Insulin Pen) NOVOLOG *MODERATE* ALGORITHM WITH MEALS BEDTIME SC Last administered on 10/30/18 07:50; Admin Dose 2 UNIT; Start at 11:30 Glucose (Glutose) 15 gm Q15M PRN PO DECREASED GLUCOSE; Start 10/09/18 at 12:00 Glucose (Glutose) 22.5 gm Q15M PRN PO DECREASED GLUCOSE; Start 10/09/18 at 12:00 Dextrose (D50w Syringe) 25 ml Q15M PRN IV DECREASED GLUCOSE; Start 10/09/18 at 12:00 Dextrose (D50w Syringe) 50 ml Q15M PRN IV DECREASED GLUCOSE; Start 10/09/18 at 12:00 Glucagon (Glucagen) 1 mg Q15M PRN IM DECREASED GLUCOSE; Start 10/09/18 at 12:00 Glucose (Glutose) 15 gm Q15M PRN BUCCAL DECREASED GLUCOSE Last administered on 10/20/18 18:52; Admin Dose 15 GM; Start 10/09/18 at 12:00 Diagnostic Test (Pha) (Accu-Chek) 1 ea AC MEALS AND BEDTIME XX Last administered on 10/30/18 07:45; Admin Dose 1 EA; Start 10/09/18 at 11:00 Insulin Aspart (Novolog Insulin Pen) 8 unit WITH MEALS SC Last administered on 10/30/18 07:50; Admin Dose 8 UNIT; Start 10/10/18 at 11:30 Aspirin (Aspirin) 81 mg DAILY PO Last administered on 10/30/18 08:09; Admin Dose 81 MG; Start 10/13/18 at 09:00 Albumin Human 100 ml @ 100 mls/hr DURING DIALYSIS PRN IV BLOOD PRESSURE SUPPORT Last administered on 10/25/18 21:21; Admin Dose 100 MLS/HR; Start 10/13/18 at 11:30 Magnesium Hydroxide (Milk Of Mag) 30 ml DAILY PRN PO CONSTIPATION; Start 10/16/18 at 06:30 Paroxetine HCl (Paxil Cr) 25 mg DAILY PO Last administered on 10/30/18 08:09; Admin Dose 25 MG; Start 10/16/18 at 11:00 Furosemide (Lasix) 40 mg DAILY PO Last administered on 10/30/18 08:11; Admin Dose 40 MG; Start 10/20/18 at 09:00 Heparin Sodium (Porcine) (Heparin (1000 Units/ml)) 500 unit WITH DIALYSIS HE Last administered on 10/29/18 14:26; Admin Dose 500 UNIT; Start 10/20/18 at 10:00 Heparin Sodium (Porcine) (Heparin (1000 Units/ml)) 1,500 unit WITH DIALYSIS HE Last administered on 10/29/18 14:31; Admin Dose 1,500 UNIT; Start 10/20/18 at 10:00 Ondansetron HCl (Zofran Tab) 4 mg Q6H PRN PO NAUSEA AND/OR VOMITING; Start 10/20/18 at 17:30 Epoetin Jero-epbx (Retacrit (Esrd)) 10,000 unit MoWeFr@1700 SC Last administered on 10/29/18 18:17; Admin Dose 10,000 UNIT; Start 10/24/18 at 17:00 Guaifenesin/ Dextromethorphan (Robitussin Dm Liquid Cup) 10 ml Q4H PRN PO cough Last administered on 10/25/18 15:49; Admin Dose 10 ML; Start 10/24/18 at 11:00 Insulin Glargine (Lantus) 20 units DAILY@0830 SC Last administered on 10/30/18 07:50; Admin Dose 20 UNITS; Start 10/26/18 at 08:30 Ciprofloxacin (Cipro) 500 mg DAILY@06 GTB Last administered on 6/6/19at 06:19; Admin Dose 500 MG; Start 10/29/18 at 06:00; Stop 11/01/18 at 05:59 Alteplase, Recombinant (Cathflo (Activase)) 4 mg MAY REPEAT X1 PRN CATHETER IF CATHETER REMAINS OCCULUDED Last administered on 10/29/18at 17:29; Admin Dose 4 MG; Start 10/29/18 at 14:00 Apixaban (Eliquis) 5 mg BID PO Last administered on 10/30/18at 08:10; Admin Dose 5 MG; Start 10/29/18 at 21:00 NANY PRIEST NP Oct 30, 2018 10:08
--- NOTE | 2018-10-30 11:18 | CONS ---
Assessment/Plan Assessment/Plan Assessment/Plan (Daily) 1. acute Hyperkalemia due to GI bleeding- resolved 2.Acute fluid overload- now resolved 3. acute GI bleeding causing acute blood loss anemia- S/p Status post EGD/colonoscopy 09/27/19 -Anastomosis ulcer -Normal colonoscopy 4. Severe Anemia with Hb 5.8 on admission s/p 5 U PRBC transfusion for GI ble eding during this admission - ot also has anemia of ESRD 5. H/O HTN 6. H/O peripherla vascular disease 7. ESRD on HD -follow up at [facility] for scheduled HD on MWF 8. 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 Unable to place right IJ by IR due to central stenosis. Now s/p left femoral permacath 10/24 but again clotted- not working , last HD was done on Saturday10/25/18- Discussed with Dr. Velasco - Recommended for higher level of care for diffficult HD access, will need IR or vascular surgery at Tertiary center to address HD access establishment due to IVC thormbosis and Central stenosis s/p HD yesteday 600 cc removed , resumed Eliquis 2.5 mg PO BID yesterday , HD ordered for Saturday Continue lasix to 40mg Po daily Epogen 71965 units SQ MWF will follow up Consultation Date/Type/Reason Admit Date/Time September 24, 2018 at 08:08 Initial Consult Date 09/24/18 Type of Consult NEPHROLOGY Date/Time of Note DATE: 10/30/18 TIME: 11:18 Exam/Review of Systems Exam Vitals Vital Signs Date Temp Pulse Resp B/P (MAP) Pulse Ox O2 O2 Flow FiO2 Time Delivery Rate 10/30/18 77 08:00 10/30/18 Nasal 2.0 07:40 Cannula 10/30/18 98.0 18 111/40 99 07:07 (63) Intake and Output 10/29/18 10/29/18 10/30/18 1515:00 23:00 07:00 IntakeIntake Total 200 ml 500 ml OutputOutput Total 200 ml 1000 ml BalanceBalance 0 ml -1000 ml 500 ml Results Result Diagram: 10/30/18 0712 10/30/18 0712 Results 24hrs Laboratory Tests Test 10/29/18 12:28 10/29/18 14:55 10/29/18 14:57 10/29/18 17:31 Bedside Glucose 227 H 123 Hepatitis B Surface NEGATIVE Antigen White Blood Count 21.8 H Red Blood Count 3.35 L Hemoglobin 9.0 L Hematocrit 28.8 L Mean Corpuscular Volume 86.0 Mean Corpuscular 26.9 L Hemoglobin Mean Corpuscular 31.3 L Hemoglobin Concent Red Cell Distribution 17.5 H Width Platelet Count 394 # Mean Platelet Volume 9.8 Immature Granulocytes % 0.500 H Neutrophils % 89.9 H Lymphocytes % 5.0 L Monocytes % 3.5 Eosinophils % 0.9 Basophils % 0.2 Nucleated Red Blood 0.0 Cells % Immature Granulocytes # 0.100 H Neutrophils # 19.6 H Lymphocytes # 1.1 Monocytes # 0.8 Eosinophils # 0.2 Basophils # 0.1 Nucleated Red Blood 0.0 Cells # Sodium Level 143 Potassium Level 2.4 #*L Chloride Level 103 Carbon Dioxide Level 31 # Anion Gap 9 # Blood Urea Nitrogen 15 # Creatinine 2.04 #H Est Glomerular Filtrat 33 L Rate mL/min Glucose Level 106 Calcium Level 8.0 L Magnesium Level 2.0 Test 10/29/18 20:11 10/29/18 20:19 10/30/18 07:12 10/30/18 07:14 Potassium Level 4.7 # 4.8 Bedside Glucose 164 White Blood Count 16.4 #H Red Blood Count 2.90 L Hemoglobin 7.8 L Hematocrit 25.0 L Mean Corpuscular Volume 86.2 Mean Corpuscular 26.9 L Hemoglobin Mean Corpuscular 31.2 L Hemoglobin Concent Red Cell Distribution 17.3 H Width Platelet Count 316 Mean Platelet Volume 10.2 Immature Granulocytes % 0.900 H Neutrophils % 85.4 H Lymphocytes % 6.3 L Monocytes % 6.7 Eosinophils % 0.4 Basophils % 0.3 Nucleated Red Blood 0.0 Cells % Immature Granulocytes # 0.140 H Neutrophils # 14.0 H Lymphocytes # 1.0 Monocytes # 1.1 H Eosinophils # 0.1 Basophils # 0.1 Nucleated Red Blood 0.0 Cells # Sodium Level 132 L Chloride Level 97 Carbon Dioxide Level 17 #L Anion Gap 18 #H Blood Urea Nitrogen 93 #H Creatinine 9.20 #H Est Glomerular Filtrat 6 L Rate mL/min Glucose Level 175 Calcium Level 7.1 L Phosphorus Level 9.4 H Magnesium Level 2.3 Test 10/30/18 07:44 Bedside Glucose 172 Medications Medication Current Medications Oxycodone/ Acetaminophen (Percocet (5/ 325)) 1 tab Q3H PRN PO PAIN LEVEL 1-5 Last administered on 10/26/18 23:38; Admin Dose 1 TAB; Start 10/07/18 at 21:00 Ondansetron HCl (Zofran Inj) 4 mg Q6H PRN IV NAUSEA AND/OR VOMITING Last ad ministered on 10/21/18 12:10; Admin Dose 4 MG; Start 10/07/18 at 21:00 Famotidine (Pepcid) 20 mg BID PO Last administered on 10/30/18 08:09; Admin Dose 20 MG; Start 10/08/18 at 21:00 Acetaminophen (Tylenol Tab) 650 mg Q3H PRN PO ELEVATED TEMPERATURE Last administered on 10/19/18 21:48; Admin Dose 650 MG; Start 10/07/18 at 21:00 Atorvastatin Calcium (Lipitor) 40 mg HS PO Last administered on 10/29/18 20:20; Admin Dose 40 MG; Start 10/08/18 at 21:00 Insulin Aspart (Novolog Insulin Pen) NOVOLOG *MODERATE* ALGORITHM WITH MEALS BEDTIME SC Last administered on 10/30/18 07:50; Admin Dose 2 UNIT; Start 10/09/18 at 11:30 Glucose (Glutose) 15 gm Q15M PRN PO DECREASED GLUCOSE; Start 10/09/18 at 12:00 Glucose (Glutose) 22.5 gm Q15M PRN PO DECREASED GLUCOSE; Start 10/09/18 at 12:00 Dextrose (D50w Syringe) 25 ml Q15M PRN IV DECREASED GLUCOSE; Start 10/09/18 at 12:00 Dextrose (D50w Syringe) 50 ml Q15M PRN IV DECREASED GLUCOSE; Start 10/09/18 at 12:00 Glucagon (Glucagen) 1 mg Q15M PRN IM DECREASED GLUCOSE; Start 10/09/18 at 12:00 Glucose (Glutose) 15 gm Q15M PRN BUCCAL DECREASED GLUCOSE Last administered on 10/20/18 18:52; Admin Dose 15 GM; Start 10/09/18 at 12:00 Diagnostic Test (Pha) (Accu-Chek) 1 ea AC MEALS AND BEDTIME XX Last administered on 10/30/18 07:45; Admin Dose 1 EA; Start 10/09/18 at 11:00 Insulin Aspart (Novolog Insulin Pen) 8 unit WITH MEALS SC Last administered on 10/30/18 07:50; Admin Dose 8 UNIT; Start 10/10/18 at 11:30 Aspirin (Aspirin) 81 mg DAILY PO Last administered on 10/30/18 08:09; Admin Dose 81 MG; Start 10/13/18 at 09:00 Albumin Human 100 ml @ 100 mls/hr DURING DIALYSIS PRN IV BLOOD PRESSURE SUPPORT Last administered on 10/25/18 21:21; Admin Dose 100 MLS/HR; Start 10/13/18 at 11:30 Magnesium Hydroxide (Milk Of Mag) 30 ml DAILY PRN PO CONSTIPATION; Start 10/16/18 at 06:30 Paroxetine HCl (Paxil Cr) 25 mg DAILY PO Last administered on 10/30/18 08:09; Admin Dose 25 MG; Start 10/16/18 at 11:00 Furosemide (Lasix) 40 mg DAILY PO Last administered on 10/30/18 08:11; Admin Dose 40 MG; Start 10/20/18 at 09:00 Heparin Sodium (Porcine) (Heparin (1000 Units/ml)) 500 unit WITH DIALYSIS HE Last administered on 10/29/18 14:26; Admin Dose 500 UNIT; Start 10/20/18 at 10:00 Heparin Sodium (Porcine) (Heparin (1000 Units/ml)) 1,500 unit WITH DIALYSIS HE Last administered on 10/29/18 14:31; Admin Dose 1,500 UNIT; Start 10/20/18 at 10:00 Ondansetron HCl (Zofran Tab) 4 mg Q6H PRN PO NAUSEA AND/OR VOMITING; Start 10/20/18 at 17:30 Epoetin Jero-epbx (Retacrit (Esrd)) 10,000 unit MoWeFr@1700 SC Last administered on 10/29/18 18:17; Admin Dose 10,000 UNIT; Start 10/24/18 at 17:00 Guaifenesin/ Dextromethorphan (Robitussin Dm Liquid Cup) 10 ml Q4H PRN PO cough Last administered on 10/25/18at 15:49; Admin Dose 10 ML; Start 10/24/18 at 11:00 Insulin Glargine (Lantus) 20 units DAILY@0830 SC Last administered on 10/30/18 07:50; Admin Dose 20 UNITS; Start 10/26/18 at 08:30 Ciprofloxacin (Cipro) 500 mg DAILY@06 GTB Last administered on 10/30/18 06:19; Admin Dose 500 MG; Start 10/29/18 at 06:00; Stop 11/01/18 at 05:59 Alteplase, Recombinant (Cathflo (Activase)) 4 mg MAY REPEAT X1 PRN CATHETER IF CATHETER REMAINS OCCULUDED Last administered on 10/29/18at 17:29; Admin Dose 4 MG; Start 10/29/18 at 14:00 Apixaban (Eliquis) 5 mg BID PO Last administered on 10/30/18at 08:10; Admin Dose 5 MG; Start 10/29/18 at 21:00 RAQUEL MCDOWELL MD Oct 30, 2018 11:18
--- NOTE | 2018-10-30 12:21 | PN ---
Date/Time of Note Date/Time of Note DATE: 10/30/18 TIME: 12:20 Assessment/Plan Lines/Catheters IV Catheter Type (from Nrsg): Mid Line Pierre in Place (from Nrsg): No Assessment/Plan Chief Complaint/Hosp Course -Bilateral lower extremity atherosclerosis with left lower extremity with left lower extremity third toe gangrene: It seems that the patient's left lower e xtremity third toe has become dry gangrene and currently stable. Unfortunately his first and second toe have also become gangrene with no significant erythema. The patient's foot pain has gradually improved since we had seen him a month ago and followed him in the office over the past few weeks. From a vascular surgery standpoint, recommend no current intervention as the patient had episode of u pper gastrointestinal bleed and subsequently CABG. We are hoping that the patient's lower extremity atherosclerotic disease will not worsen during this period of time. Resume anticoagulation and antiplatelet therapy when cleared by multidisciplinary team. There is concern he may require an amputation should he not improve and develop worsening gangrene. This was discussed in detail with the family given his plethora of medical conditions -Bilateral lower extremity varicose veins and edema: The patient has component of mixed disease (venous insufficiency and arterial sufficiency). At the [facility], we recommend elevation of the bilateral lower extremities while at rest. No further intervention will be needed and can be followed as an outpatient in regards to venous insufficiency. -End-stage renal disease: At the moment the patient's left upper extremity fistula is nonfunctional. 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 I've been asked by our multidisciplinary team to re-evaluate. Upon lower extremity venogram there is large collateralization that has developed with the iliac veins secondary to the infrarenal IVC. I have thoroughly spoken with the mohamud grissom's family and at the bedside regarding further interventions and they understand the full scope of what is involved and limitations at [facility]. Unable to perform multidisciplinary approach for transhepatic catheter intervention and no IR interventionalist available. Further, may be a candidate for azygous catheter placement however unable to perform re-canalization secondary to limitation of our angio suite. As the patient will require advanced intervention for dialysis access will need to be transferred to a tertiary center secondary to limited resources. Our multidisciplinary team has agreed with the plan and involved in the decision. Certified clothing designer present. Subjective 24 Hr Interval Summary tolerating dialysis, new forefoot pain Exam/Review of Systems Vital Signs Vitals Vital Signs Date Temp Pulse Resp B/P (MAP) Pulse Ox O2 O2 Flow FiO2 Time Delivery Rate 11/06/18 97.4 85 18 100/59 98 Room Air 07:59 (73) 11/06/18 2.0 05:00 11/05/18 21 23:48 Intake and Output 11/05/18 11/05/18 11/06/18 1515:00 23:00 07:00 IntakeIntake Total 800 ml OutputOutput Total 1600 ml BalanceBalance -1600 ml 800 ml Exam Free Text/Dictation GENERAL: Awake. PULMONARY: Coarse BS bilaterally, CARDIOVASCULAR: S1, S2 present. Dressing intact ABDOMEN: Soft, nontender, nondistended. Bowel sounds positive. Large truncal obesity. EXTREMITIES: Right lower extremity palpable femoral pulse, nonpalpable pedal pulse. Motor, sensory intact. Cap refill 3 to 4 seconds. Presence of varicose veins and large leg. Left lower extremity palpable femoral pulse, nonpalpable pedal pulse. Motor, sensory intact. Cap refill 3 to 4 seconds. 1-3 Third toe gangrene, plantar gangrene developing, Heel gangrene developed. groin catheter intact, new forefoot cellulitis and tenderness Varicose veins and edema of the left lower extremity with presence of mild lipodermatosclerosis. Left upper extremity: Palpable brachial pulse, motor/sensory intact, fistula with bruit and thrill not present Results Result Diagram: 11/06/18 0634 11/06/18 0634 VANIA PEREYRA MD Oct 30, 2018 12:20
--- NOTE | 2018-10-30 17:51 | CONS ---
Assessment/Plan Assessment/Plan Hospital Course (Demo Recall) Afib/flutter: new onset, rates controlled. Now on Eliquis Cholecystitis: started on antibiotics. Seen on CT. No symptoms or exam findings CAD s/p CABG: CABG x4 10/07/18, ÁLVAREZ to LAD, SVG to ramus, SVG to OM1 sequenced to OM2. Doing well. Extubated 10/08, off pressors NSTEMI: Trop peak 1.1 and trended down. S/p cath 09/30/18 with diffuse multivessel CAD. CABG as above Upper GI bleed: due to anastomotic ulcer seen on EGD 09/26. No bleeding since. Hgb relatively stable. Anemia: due to above. s/p 5 units PRBCs and 2 units intraop. Tyronebach: Kaylee 1. Not on BB. No pauses or high grade block. 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 Unable to place right IJ. Now s/p left femoral permacath 10/24 which clotted but started to work again HTN H/o Billroth Depression: now on meds -f/u case management for transfer. Still needs a more permanent solution to his HD access issue -Eliquis 5mg BID as he is <80 years old and >60kg even on HD -antibiotics -ASA 81mg -continue to hold metoprolol as pt has bradycardia -lipitor 40mg -lasix 40mg PO -HD per nephrology Consultation Date/Type/Reason Admit Date/Time September 24, 2018 at 08:08 Initial Consult Date 09/24/18 Type of Consult Cardiology Date/Time of Note DATE: 10/30/18 TIME: 17:50 24 HR Interval Summary Free Text/Dictation No events. Awaiting transfer. thinks that he is more alert and responsive in the am and may be due to to the Paxil Exam/Review of Systems Vital Signs Vitals Vital Signs Date Temp Pulse Resp B/P (MAP) Pulse Ox O2 O2 Flow FiO2 Time Delivery Rate 10/30/18 74 16:00 10/30/18 98.0 18 108/40 94 15:20 (62) 10/30/18 Nasal 2.0 07:40 Cannula Intake and Output 10/29/18 10/29/18 10/30/18 1515:00 23:00 07:00 IntakeIntake Total 200 ml 500 ml OutputOutput Total 200 ml 1000 ml BalanceBalance 0 ml -1000 ml 500 ml Exam Constitutional: alert, oriented Psych: no complaints, nl mood/affect Head: normocephalic, atraumatic Neck: supple; No jvd Respiratory: clear to auscultation; No crackles/rales Gastrointestinal: soft, non-tender; No distended 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: nl mental status Labs Result Diagram: 10/30/18 0712 10/30/18 0712 Results 24hrs Laboratory Tests Test 10/29/18 20:11 10/29/18 20:19 10/30/18 07:12 10/30/18 07:14 Potassium Level 4.7 # 4.8 Bedside Glucose 164 White Blood Count 16.4 #H Red Blood Count 2.90 L Hemoglobin 7.8 L Hematocrit 25.0 L Mean Corpuscular Volume 86.2 Mean Corpuscular 26.9 L Hemoglobin Mean Corpuscular 31.2 L Hemoglobin Concent Red Cell Distribution 17.3 H Width Platelet Count 316 Mean Platelet Volume 10.2 Immature Granulocytes % 0.900 H Neutrophils % 85.4 H Lymphocytes % 6.3 L Monocytes % 6.7 Eosinophils % 0.4 Basophils % 0.3 Nucleated Red Blood 0.0 Cells % Immature Granulocytes # 0.140 H Neutrophils # 14.0 H Lymphocytes # 1.0 Monocytes # 1.1 H Eosinophils # 0.1 Basophils # 0.1 Nucleated Red Blood 0.0 Cells # Sodium Level 132 L Chloride Level 97 Carbon Dioxide Level 17 #L Anion Gap 18 #H Blood Urea Nitrogen 93 #H Creatinine 9.20 #H Est Glomerular Filtrat 6 L Rate mL/min Glucose Level 175 Calcium Level 7.1 L Phosphorus Level 9.4 H Magnesium Level 2.3 Test 10/30/18 07:44 10/30/18 12:31 10/30/18 17:04 Bedside Glucose 172 214 188 Medications Medications Current Medications Oxycodone/ Acetaminophen (Percocet (5/ 325)) 1 tab Q3H PRN PO PAIN LEVEL 1-5 Last administered on 10/26/18at 23:38; Admin Dose 1 TAB; Start 10/07/18 at 21:00 Ondansetron HCl (Zofran Inj) 4 mg Q6H PRN IV NAUSEA AND/OR VOMITING Last administered on 10/21/18 12:10; Admin Dose 4 MG; Start 10/07/18 at 21:00 Famotidine (Pepcid) 20 mg BID PO Last administered on 10/30/18 08:09; Admin Dose 20 MG; Start 10/08/18 at 21:00 Acetaminophen (Tylenol Tab) 650 mg Q3H PRN PO ELEVATED TEMPERATURE Last administered on 10/19/18 21:48; Admin Dose 650 MG; Start 10/07/18 at 21:00 Atorvastatin Calcium (Lipitor) 40 mg HS PO Last administered on 10/29/18 20:20; Admin Dose 40 MG; Start 10/08/18 at 21:00 Insulin Aspart (Novolog Insulin Pen) NOVOLOG *MODERATE* ALGORITHM WITH MEALS BEDTIME SC Last administered on 10/30/18 12:36; Admin Dose 4 UNIT; Start 10/09 at 11:30 Glucose (Glutose) 15 gm Q15M PRN PO DECREASED GLUCOSE; Start 10/09/18 at 12:00 Glucose (Glutose) 22.5 gm Q15M PRN PO DECREASED GLUCOSE; Start 10/09/18 at 12:00 Dextrose (D50w Syringe) 25 ml Q15M PRN IV DECREASED GLUCOSE; Start 10/09/18 at 12:00 Dextrose (D50w Syringe) 50 ml Q15M PRN IV DECREASED GLUCOSE; Start 10/09/18 at 12:00 Glucagon (Glucagen) 1 mg Q15M PRN IM DECREASED GLUCOSE; Start 10/09/18 at 12:00 Glucose (Glutose) 15 gm Q15M PRN BUCCAL DECREASED GLUCOSE Last administered on 10/20/18 18:52; Admin Dose 15 GM; Start 10/09/18 at 12:00 Diagnostic Test (Pha) (Accu-Chek) 1 ea AC MEALS AND BEDTIME XX Last administered on 10/30/18 12:13; Admin Dose 1 EA; Start 10/09/18 at 11:00 Insulin Aspart (Novolog Insulin Pen) 8 unit WITH MEALS SC Last administered on 10/30/18 12:37; Admin Dose 8 UNIT; Start 10/10/18 at 11:30 Aspirin (Aspirin) 81 mg DAILY PO Last administered on 10/30/18 08:09; Admin Dose 81 MG; Start 10/13/18 at 09:00 Albumin Human 100 ml @ 100 mls/hr DURING DIALYSIS PRN IV BLOOD PRESSURE SUPPORT Last administered on 10/25/18 21:21; Admin Dose 100 MLS/HR; Start 10/13/18 at 11:30 Magnesium Hydroxide (Milk Of Mag) 30 ml DAILY PRN PO CONSTIPATION; Start 10/16/18 at 06:30 Paroxetine HCl (Paxil Cr) 25 mg DAILY PO Last administered on 10/30/18 08:09; A dmin Dose 25 MG; Start 10/16/18 at 11:00 Furosemide (Lasix) 40 mg DAILY PO Last administered on 10/30/18 08:11; Admin Dose 40 MG; Start 10/20/18 at 09:00 Heparin Sodium (Porcine) (Heparin (1000 Units/ml)) 500 unit WITH DIALYSIS HE Last administered on 10/29/18 14:26; Admin Dose 500 UNIT; Start 10/20/18 at 10:00 Heparin Sodium (Porcine) (Heparin (1000 Units/ml)) 1,500 unit WITH DIALYSIS HE Last administered on 10/29/18 14:31; Admin Dose 1,500 UNIT; Start 10/20/18 at 10:00 Ondansetron HCl (Zofran Tab) 4 mg Q6H PRN PO NAUSEA AND/OR VOMITING; Start 10/20/18 at 17:30 Epoetin Jero-epbx (Retacrit (Esrd)) 10,000 unit MoWeFr@1700 SC Last administered on 10/29/18 18:17; Admin Dose 10,000 UNIT; Start 10/24/18 at 17:00 Guaifenesin/ Dextromethorphan (Robitussin Dm Liquid Cup) 10 ml Q4H PRN PO cough Last administered on 10/25/18 15:49; Admin Dose 10 ML; Start 10/24/18 at 11:00 Insulin Glargine (Lantus) 20 units DAILY@0830 SC Last administered on 10/30/18 07:50; Admin Dose 20 UNITS; Start 10/26/18 at 08:30 Ciprofloxacin (Cipro) 500 mg DAILY@06 GTB Last administered on 10/30/18 06:19; Admin Dose 500 MG; Start 10/29/18 at 06:00; Stop 11/01/18 at 05:59 Alteplase, Recombinant (Cathflo (Activase)) 4 mg MAY REPEAT X1 PRN CATHETER IF CATHETER REMAINS OCCULUDED Last administered on 10/29/18at 17:29; Admin Dose 4 MG; Start 10/29/18 at 14:00 Apixaban (Eliquis) 5 mg BID PO Last administered on 10/30/18at 08:10; Admin Dose 5 MG; Start 10/29/18 at 21:00 LAVON SEE Oct 30, 2018 17:51
[2018-10-30] MEDS: ATORVASTATIN 40 MG TAB PO SCH (20:15)
[2018-10-31] VITALS (24 sets, daily range): BP systolic 89–127; BP diastolic 35–79; PULSE 53–99; RESP 18–20
[2018-10-31] MEDS: CIPROFLOXACIN 500 MG TAB GTB SCH (06:02)
[2018-10-31] MEDS: ACCU-CHEK XX SCH ×4 (07:25→21:55)
[2018-10-31] MEDS: INSULIN ASPART [NOVOLOG] 3 ML PEN SC SCH ×7 (07:55→21:00)
[2018-10-31] MEDS: ALBUMIN HUMAN 25% 100 ML IV PRN (08:22)
[2018-10-31] MEDS: FUROSEMIDE 40 MG TAB PO SCH (09:00)
[2018-10-31] MEDS: BALSAM PERU/CASTOR OIL 60 GM TUBE TOP SCH (09:00)
[2018-10-31] MEDS: ALTEPLASE (CATHFLO) 2 MG INJ CATHETER PRN (10:19)
[2018-10-31] MEDS: HEPARIN 1000 UNITS/ML 10 ML INJ HE SCH ×2 (10:21)
[2018-10-31] MEDS: APIXABAN 5 MG TABLET PO SCH ×2 (10:30→21:51)
[2018-10-31] MEDS: PAROXETINE (CR) 12.5 MG TAB PO SCH (10:31)
[2018-10-31] MEDS: ASPIRIN 81 MG TAB PO SCH (10:31)
[2018-10-31] MEDS: FAMOTIDINE 20 MG TAB PO SCH ×2 (10:31→21:51)
[2018-10-31] MEDS: INSULIN GLARGINE [LANTus] (100 UNITS/ML) SYG SC SCH (10:48)
--- NOTE | 2018-10-31 10:58 | CONS ---
Assessment/Plan Assessment/Plan Assessment/Plan (Daily) 1. acute Hyperkalemia due to GI bleeding- resolved 2.Acute fluid overload- now resolved 3. acute GI bleeding causing acute blood loss anemia- S/p Status post EGD/colonoscopy 09/27/19 -Anastomosis ulcer -Normal colonoscopy 4. Severe Anemia with Hb 5.8 on admission s/p 5 U PRBC transfusion for GI ble eding during this admission - pt also has anemia of ESRD 5. H/O HTN 6. H/O peripherla vascular disease 7. ESRD on HD -follow up at [facility] for scheduled HD on MWF 8. 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 Unable to place right IJ by IR due to central stenosis. Now s/p left femoral permacath 10/24 but still intermittently getting clotted- Discussed with Dr. Velasco - Recommended for higher level of care for diffficult HD access, will need IR or vascular surgery [facility] to address HD access establishment due to IVC thrombosis and Central stenosis s/p HD today 2.7 L removed , continue Eliquis 2.5 mg PO BID , Extra Hd ordered for saturday and then we will keep pt on MWF schedule Continue lasix to 40mg Po daily Epogen 29264 units SQ MWF will follow up Consultation Date/Type/Reason Admit Date/Time September 24, 2018 at 08:08 Initial Consult Date 09/24/18 Type of Consult NEPHROLOGY Date/Time of Note DATE: 10/31/18 TIME: 10:58 24 HR Interval Summary Free Text/Dictation s/p HD today 2.7 L removed, Plan for extra HD tomorrow Exam/Review of Systems Exam Vitals Vital Signs Date Temp Pulse Resp B/P (MAP) Pulse Ox O2 O2 Flow FiO2 Time Delivery Rate 10/31/18 78 123/79 98 Nasal 2.0 10:12 (94) Cannula 10/31/18 97.3 20 08:37 Intake and Output 10/30/18 10/30/18 10/31/18 1515:00 23:00 07:00 IntakeIntake Total 650 ml 400 ml BalanceBalance 650 ml 400 ml Exam Constitutional: alert, awake no acute distress Neck: supple, no JVD, no LAD Respiratory: crackles/rales, diminished breath sounds Cardiovascular: regular rate and rhythm, nl pulses, Scar healthy Gastrointestinal: soft, non-tender Musculoskeletal: swelling Extremities: 1+ pitting edema, left groin permacath 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: awake, alert, non focal Results Result Diagram: 10/30/18 0712 10/30/18 0712 Results 24hrs Laboratory Tests Test 10/30/18 12:31 10/30/18 17:04 10/30/18 20:14 10/31/18 07:43 Bedside Glucose 214 188 115 162 Test 10/31/18 10:25 Bedside Glucose 123 Medications Medication Current Medications Oxycodone/ Acetaminophen (Percocet (5/ 325)) 1 tab Q3H PRN PO PAIN LEVEL 1-5 Last administered on 10/26/18 23:38; Admin Dose 1 TAB; Start 10/07/18 at 21:00 Ondansetron HCl (Zofran Inj) 4 mg Q6H PRN IV NAUSEA AND/OR VOMITING Last administered on 10/21/18 12:10; Admin Dose 4 MG; Start 10/07/18 at 21:00 Famotidine (Pepcid) 20 mg BID PO Last administered on 10/31/18 10:31; Admin Dose 20 MG; Start 10/08/18 at 21:00 Acetaminophen (Tylenol Tab) 650 mg Q3H PRN PO ELEVATED TEMPERATURE Last administered on 10/19/18 21:48; Admin Dose 650 MG; Start 10/07/18 at 21:00 Atorvastatin Calcium (Lipitor) 40 mg HS PO Last administered on 10/30/18 20:15; Admin Dose 40 MG; Start 10/08/18 at 21:00 Insulin Aspart (Novolog Insulin Pen) NOVOLOG *MODERATE* ALGORITHM WITH MEALS BEDTIME SC Last administered on 10/30/18 17:51; Admin Dose 4 UNIT; Start 10/09/18 at 11:30 Glucose (Glutose) 15 gm Q15M PRN PO DECREASED GLUCOSE; Start 10/09/18 at 12:00 Glucose (Glutose) 22.5 gm Q15M PRN PO DECREASED GLUCOSE; Start 10/09/18 at 12:00 Dextrose (D50w Syringe) 25 ml Q15M PRN IV DECREASED GLUCOSE; Start 10/09/18 at 12:00 Dextrose (D50w Syringe) 50 ml Q15M PRN IV DECREASED GLUCOSE; Start 10/09/18 at 12:00 Glucagon (Glucagen) 1 mg Q15M PRN IM DECREASED GLUCOSE; Start 10/09/18 at 12:00 Glucose (Glutose) 15 gm Q15M PRN BUCCAL DECREASED GLUCOSE Last administered on 10/20/18 18:52; Admin Dose 15 GM; Start 10/09/18 at 12:00 Diagnostic Test (Pha) (Accu-Chek) 1 ea AC MEALS AND BEDTIME XX Last ad ministered on 10/30/18 20:15; Admin Dose 1 EA; Start 10/09/18 at 11:00 Insulin Aspart (Novolog Insulin Pen) 8 unit WITH MEALS SC Last administered on 10/31/18 10:42; Admin Dose 8 UNIT; Start 10/10/18 at 11:30 Aspirin (Aspirin) 81 mg DAILY PO Last administered on 10/31/18 10:31; Admin Dose 81 MG; Start 10/13/18 at 09:00 Albumin Human 100 ml @ 100 mls/hr DURING DIALYSIS PRN IV BLOOD PRESSURE SUPPORT Last administered on 10/31/18 08:22; Admin Dose 100 MLS/HR; Start 10/13/18 at 11:30 Magnesium Hydroxide (Milk Of Mag) 30 ml DAILY PRN PO CONSTIPATION; Start 10/16/18 at 06:30 Paroxetine HCl (Paxil Cr) 25 mg DAILY PO Last administered on 10/31/18 10:31; Admin Dose 25 MG; Start 10/16/18 at 11:00 Furosemide (Lasix) 40 mg DAILY PO Last administered on 10/30/18 08:11; Admin Dose 40 MG; Start 10/20/18 at 09:00 Heparin Sodium (Porcine) (Heparin (1000 Units/ml)) 500 unit WITH DIALYSIS HE Last administered on 10/31/18 10:21; Admin Dose 500 UNIT; Start 10/20/18 at 10:00 Heparin Sodium (Porcine) (Heparin (1000 Units/ml)) 1,500 unit WITH DIALYSIS HE Last administered on 10/31/18 10:21; Admin Dose 1,500 UNIT; Start 10/20/18 at 10:00 Ondansetron HCl (Zofran Tab) 4 mg Q6H PRN PO NAUSEA AND/OR VOMITING; Start 10/20/18 at 17:30 Epoetin Jero-epbx (Retacrit (Esrd)) 10,000 unit MoWeFr@1700 SC Last administered on 10/29/18 18:17; Admin Dose 10,000 UNIT; Start 10/24/18 at 17:00 Guaifenesin/ Dextromethorphan (Robitussin Dm Liquid Cup) 10 ml Q4H PRN PO cough Last administered on 10/25/18at 15:49; Admin Dose 10 ML; Start 10/24/18 at 11:00 Insulin Glargine (Lantus) 20 units DAILY@0830 SC Last administered on 10/31/18 10:48; Admin Dose 20 UNITS; Start 10/26/18 at 08:30 Ciprofloxacin (Cipro) 500 mg DAILY@06 GTB Last administered on 10/31/18 06:02; Admin Dose 500 MG; Start 10/29/18 at 06:00; Stop 11/01/18 at 05:59 Alteplase, Recombinant (Cathflo (Activase)) 4 mg MAY REPEAT X1 PRN CATHETER IF CATHETER REMAINS OCCULUDED Last administered on 10/31/18 10:19; Admin Dose 2 MG; Start 10/29/18 at 14:00 Apixaban (Eliquis) 5 mg BID PO Last administered on 10/31/18 10:30; Admin Dose 5 MG; Start 10/29/18 at 21:00 RAQUEL MCDOWELL MD Oct 31, 2018 10:58
--- NOTE | 2018-10-31 12:26 | CONS ---
Assessment/Plan Assessment/Plan Hospital Course (Demo Recall) Afib/flutter: new onset, rates controlled. Now on Eliquis Cholecystitis: started on antibiotics. Seen on CT. No symptoms or exam findings CAD s/p CABG: CABG x4 10/07/18, ÁLVAREZ to LAD, SVG to ramus, SVG to OM1 sequenced to OM2. Doing well. Extubated 10/08, off pressors NSTEMI: Trop peak 1.1 and trended down. S/p cath 09/30/18 with diffuse multivessel CAD. CABG as above Upper GI bleed: due to anastomotic ulcer seen on EGD 09/26. No bleeding since. Hgb relatively stable. Anemia: due to above. s/p 5 units PRBCs and 2 units intraop. Tyronebach: Kaylee 1. Not on BB. No pauses or high grade block. 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 Unable to place right IJ. Now s/p left femoral permacath 10/24 which clotted but started to work again HTN H/o Billroth Depression: now on meds -d/c paxil to see if he will be less somnolent throughout the day -awaiting transfer to [facility] -Eliquis 5mg BID as he is <80 years old and >60kg even on HD -antibiotics -ASA 81mg -continue to hold metoprolol as pt has bradycardia -lipitor 40mg -lasix 40mg PO -HD per nephrology Consultation Date/Type/Reason Admit Date/Time September 24, 2018 at 08:08 Initial Consult Date 09/24/18 Type of Consult Cardiology Date/Time of Note DATE: 10/31/18 TIME: 12:24 24 HR Interval Summary Free Text/Dictation Still awaiting transfer Exam/Review of Systems Vital Signs Vitals Vital Signs Date Temp Pulse Resp B/P (MAP) Pulse Ox O2 O2 Flow FiO2 Time Delivery Rate 10/31/18 98.0 53 18 103/50 100 Nasal 11:49 (67) Cannula 10/31/18 2.0 10:12 Intake and Output 10/30/18 10/30/18 10/31/18 1515:00 23:00 07:00 IntakeIntake Total 650 ml 400 ml BalanceBalance 650 ml 400 ml Exam Constitutional: No alert (sleeping ) Neck: No jvd Respiratory: diminished breath sounds; No clear to auscultation Cardiovascular: regular rate and rhythm; No edema Gastrointestinal: soft, non-tender; No distended 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: No nl mental status, No nl speech Labs Result Diagram: 10/30/18 0712 10/30/18 0712 Results 24hrs Laboratory Tests Test 10/30/18 12:31 10/30/18 17:04 10/30/18 20:14 10/31/18 07:43 Bedside Glucose 214 188 115 162 Test 10/31/18 10:25 Bedside Glucose 123 Medications Medications Current Medications Oxycodone/ Acetaminophen (Percocet (5/ 325)) 1 tab Q3H PRN PO PAIN LEVEL 1-5 Last administered on 10/26/18 23:38; Admin Dose 1 TAB; Start 10/07/18 at 21:00 Ondansetron HCl (Zofran Inj) 4 mg Q6H PRN IV NAUSEA AND/OR VOMITING Last administered on 10/21/18 12:10; Admin Dose 4 MG; Start 10/07/18 at 21:00 Famotidine (Pepcid) 20 mg BID PO Last administered on 10/31/18 10:31; Admin Dose 20 MG; Start 10/08/18 at 21:00 Acetaminophen (Tylenol Tab) 650 mg Q3H PRN PO ELEVATED TEMPERATURE Last administered on 10/19/18 21:48; Admin Dose 650 MG; Start 10/07/18 at 21:00 Atorvastatin Calcium (Lipitor) 40 mg HS PO Last administered on 10/30/18 20:15; Admin Dose 40 MG; Start 10/08/18 at 21:00 Insulin Aspart (Novolog Insulin Pen) NOVOLOG *MODERATE* ALGORITHM WITH MEALS BEDTIME SC Last administered on 10/30/18 17:51; Admin Dose 4 UNIT; Start 10/09/18 at 11:30 Glucose (Glutose) 15 gm Q15M PRN PO DECREASED GLUCOSE; Start 10/09/18 at 12:00 Glucose (Glutose) 22.5 gm Q15M PRN PO DECREASED GLUCOSE; Start 10/09/18 at 12:00 Dextrose (D50w Syringe) 25 ml Q15M PRN IV DECREASED GLUCOSE; Start 10/09/18 at 12:00 Dextrose (D50w Syringe) 50 ml Q15M PRN IV DECREASED GLUCOSE; Start 10/09/18 at 12:00 Glucagon (Glucagen) 1 mg Q15M PRN IM DECREASED GLUCOSE; Start 10/09/18 at 12:00 Glucose (Glutose) 15 gm Q15M PRN BUCCAL DECREASED GLUCOSE Last administered on 10/20/18 18:52; Admin Dose 15 GM; Start 10/09/18 at 12:00 Diagnostic Test (Pha) (Accu-Chek) 1 ea AC MEALS AND BEDTIME XX Last administered on 10/30/18 20:15; Admin Dose 1 EA; Start 10/09/18 at 11:00 Insulin Aspart (Novolog Insulin Pen) 8 unit WITH MEALS SC Last administered on 10/31/18 10:42; Admin Dose 8 UNIT; Start 10/10/18 at 11:30 Aspirin (Aspirin) 81 mg DAILY PO Last administered on 10/31/18 10:31; Admin Dose 81 MG; Start 10/13/18 at 09:00 Albumin Human 100 ml @ 100 mls/hr DURING DIALYSIS PRN IV BLOOD PRESSURE SUPPORT Last administered on 10/31/18 08:22; Admin Dose 100 MLS/HR; Start 10/13/18 at 11:30 Magnesium Hydroxide (Milk Of Mag) 30 ml DAILY PRN PO CONSTIPATION; Start 10/16/18 at 06:30 Paroxetine HCl (Paxil Cr) 25 mg DAILY PO Last administered on 10/31/18 10:31; Admin Dose 25 MG; Start 10/16/18 at 11:00 Furosemide (Lasix) 40 mg DAILY PO Last administered on 10/30/18 08:11; Admin Dose 40 MG; Start 10/20/18 at 09:00 Heparin Sodium (Porcine) (Heparin (1000 Units/ml)) 500 unit WITH DIALYSIS HE Last administered on 10/31/18 10:21; Admin Dose 500 UNIT; Start 10/20/18 at 10:00 Heparin Sodium (Porcine) (Heparin (1000 Units/ml)) 1,500 unit WITH DIALYSIS HE Last administered on 10/31/18 10:21; Admin Dose 1,500 UNIT; Start 10/20/18 at 10:00 Ondansetron HCl (Zofran Tab) 4 mg Q6H PRN PO NAUSEA AND/OR VOMITING; Start 10/20/18 at 17:30 Epoetin Jero-epbx (Retacrit (Esrd)) 10,000 unit MoWeFr@1700 SC Last administered on 10/29/18 18:17; Admin Dose 10,000 UNIT; Start 10/24/18 at 17:00 Guaifenesin/ Dextromethorphan (Robitussin Dm Liquid Cup) 10 ml Q4H PRN PO cough Last administered on 10/25/18at 15:49; Admin Dose 10 ML; Start 10/24/18 at 11:00 Insulin Glargine (Lantus) 20 units DAILY@0830 SC Last administered on 10/31/18 10:48; Admin Dose 20 UNITS; Start 10/26/18 at 08:30 Ciprofloxacin (Cipro) 500 mg DAILY@06 GTB Last administered on 10/31/18 06:02; Admin Dose 500 MG; Start 10/29/18 at 06:00; Stop 11/01/18 at 05:59 Alteplase, Recombinant (Cathflo (Activase)) 4 mg MAY REPEAT X1 PRN CATHETER IF CATHETER REMAINS OCCULUDED Last administered on 10/31/18 10:19; Admin Dose 2 MG; Start 10/29/18 at 14:00 Apixaban (Eliquis) 5 mg BID PO Last administered on 10/31/18 10:30; Admin Dose 5 MG; Start 10/29/18 at 21:00 LAVON SEE Oct 31, 2018 12:26
--- NOTE | 2018-10-31 17:01 | PN ---
Date/Time of Note Date/Time of Note DATE: 10/31/18 TIME: 16:56 Assessment/Plan VTE Prophylaxis Risk score (from Ns)>0 risk: 11 [place] [facility] contraindicated: low risk/ambulating Pharmacological prophylaxis: LMWH Lines/Catheters IV Catheter Type (from [facility]): Mid Line Urinary Cath still in place: No Assessment/Plan Hospital Course Hospitalist coverage/hospital course Assessment and plan 1. Symptomatic anemia; sp. EGD showing an anastomotic ulcer. Colonoscopy deferred 2. H/o Billroth II surgery 3. ESRD stable cont HD. Needs [facility] assistance for access 4. Dm 5. Morbid obesity 6. DVT PE status 7. Chronic type II arrhythmia [place] 8. PAD, chronic/ bilat. h/o Angio 08/12; lt 3rd digit ulcer/ dry gangrene. Now progressive with its first and second digit dz; recomm is conservative mngmnt. Amputation prn 9. NSTEMI status post cath 10. Coronary disease multivessel status post CABG 11. Acute cholecystitis, finish antibiotics. Not a candidate for cholecystectomy 12. A. fib/flutter continue rate control and long-term anticoagulation 13. 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 Failed left AV graft, right Madi, and right IJ; [facility] transfer pending 14. Failure to thrive Subjective: Events noted no distress Objective: Vital signs stable Physical exam No pallor JVD Regular no murmur rub gallop Clear no tachypnea Bs present nt nd no RRG No edema; poor pulses; dry gangrene left foot noted Result Diagram: 10/31/18 1412 10/31/18 1412 Results 24hrs Laboratory Tests Test 10/30/18 17:04 10/30/18 20:14 10/31/18 07:43 10/31/18 10:25 Bedside Glucose 188 115 162 123 Test 10/31/18 14:12 White Blood Count 17.4 H Red Blood Count 2.87 L Hemoglobin 7.7 L Hematocrit 24.5 L Mean Corpuscular Volume 85.4 Mean Corpuscular 26.8 L Hemoglobin Mean Corpuscular 31.4 L Hemoglobin Concent Red Cell Distribution 17.2 H Width Platelet Count 360 Mean Platelet Volume 10.0 Immature Granulocytes % 0.800 H Neutrophils % 88.3 H Lymphocytes % 5.4 L Monocytes % 5.1 Eosinophils % 0.2 Basophils % 0.2 Nucleated Red Blood 0.0 Cells % Immature Granulocytes # 0.140 H Neutrophils # 15.3 H Lymphocytes # 0.9 Monocytes # 0.9 Eosinophils # 0.0 Basophils # 0.0 Nucleated Red Blood 0.0 Cells # Sodium Level 134 L Potassium Level 4.3 Chloride Level 97 Carbon Dioxide Level 20 L Anion Gap 17 H Blood Urea Nitrogen 66 H Creatinine 7.54 H Est Glomerular Filtrat 7 L Rate mL/min Glucose Level 136 Calcium Level 7.8 L Phosphorus Level 7.1 #H Magnesium Level 2.1 Exam/Review of Systems Exam Vitals Vital Signs Date Temp Pulse Resp B/P (MAP) Pulse Ox O2 O2 Flow FiO2 Time Delivery Rate 10/31/18 86 16:39 10/31/18 98.0 18 103/50 100 Nasal 11:49 (67) Cannula 10/31/18 2.0 10:12 Intake and Output 10/30/18 10/30/18 10/31/18 1515:00 23:00 07:00 IntakeIntake Total 650 ml 400 ml BalanceBalance 650 ml 400 ml Results Results 24hrs Laboratory Tests Test 10/30/18 17:04 10/30/18 20:14 10/31/18 07:43 10/31/18 10:25 Bedside Glucose 188 115 162 123 Test 10/31/18 14:12 White Blood Count 17.4 H Red Blood Count 2.87 L Hemoglobin 7.7 L Hematocrit 24.5 L Mean Corpuscular Volume 85.4 Mean Corpuscular 26.8 L Hemoglobin Mean Corpuscular 31.4 L Hemoglobin Concent Red Cell Distribution 17.2 H Width Platelet Count 360 Mean Platelet Volume 10.0 Immature Granulocytes % 0.800 H Neutrophils % 88.3 H Lymphocytes % 5.4 L Monocytes % 5.1 Eosinophils % 0.2 Basophils % 0.2 Nucleated Red Blood 0.0 Cells % Immature Granulocytes # 0.140 H Neutrophils # 15.3 H Lymphocytes # 0.9 Monocytes # 0.9 Eosinophils # 0.0 Basophils # 0.0 Nucleated Red Blood 0.0 Cells # Sodium Level 134 L Potassium Level 4.3 Chloride Level 97 Carbon Dioxide Level 20 L Anion Gap 17 H Blood Urea Nitrogen 66 H Creatinine 7.54 H Est Glomerular Filtrat 7 L Rate mL/min Glucose Level 136 Calcium Level 7.8 L Phosphorus Level 7.1 #H Magnesium Level 2.1 Medications Medication Current Medications Oxycodone/ Acetaminophen (Percocet (5/ 325)) 1 tab Q3H PRN PO PAIN LEVEL 1-5 Last administered on 10/26/18 23:38; Admin Dose 1 TAB; Start 10/07/18 at 21:00 Ondansetron HCl (Zofran Inj) 4 mg Q6H PRN IV NAUSEA AND/OR VOMITING Last administered on 10/21/18 12:10; Admin Dose 4 MG; Start 10/07/18 at 21:00 Famotidine (Pepcid) 20 mg BID PO Last administered on 10/31/18 10:31; Admin D ose 20 MG; Start 10/08/18 at 21:00 Acetaminophen (Tylenol Tab) 650 mg Q3H PRN PO ELEVATED TEMPERATURE Last administered on 10/19/18 21:48; Admin Dose 650 MG; Start 10/07/18 at 21:00 Atorvastatin Calcium (Lipitor) 40 mg HS PO Last administered on 10/30/18 20:15; Admin Dose 40 MG; Start 10/08/18 at 21:00 Insulin Aspart (Novolog Insulin Pen) NOVOLOG *MODERATE* ALGORITHM WITH MEALS BEDTIME SC Last administered on 10/30/18 17:51; Admin Dose 4 UNIT; Start 10/09/18 at 11:30 Glucose (Glutose) 15 gm Q15M PRN PO DECREASED GLUCOSE; Start 10/09/18 at 12:00 Glucose (Glutose) 22.5 gm Q15M PRN PO DECREASED GLUCOSE; Start 10/09/18 at 12:00 Dextrose (D50w Syringe) 25 ml Q15M PRN IV DECREASED GLUCOSE; Start 10/09/18 at 12:00 Dextrose (D50w Syringe) 50 ml Q15M PRN IV DECREASED GLUCOSE; Start 10/09/18 at 12:00 Glucagon (Glucagen) 1 mg Q15M PRN IM DECREASED GLUCOSE; Start 10/09/18 at 12:00 Glucose (Glutose) 15 gm Q15M PRN BUCCAL DECREASED GLUCOSE Last administered on 10/20/18 18:52; Admin Dose 15 GM; Start 10/09/18 at 12:00 Diagnostic Test (Pha) (Accu-Chek) 1 ea AC MEALS AND BEDTIME XX Last administered on 10/30/18 20:15; Admin Dose 1 EA; Start 10/09/18 at 11:00 Insulin Aspart (Novolog Insulin Pen) 8 unit WITH MEALS SC Last administered on 10/31/18 10:42; Admin Dose 8 UNIT; Start 10/10/18 at 11:30 Aspirin (Aspirin) 81 mg DAILY PO Last administered on 10/31/18 10:31; Admin Dose 81 MG; Start 10/13/18 at 09:00 Albumin Human 100 ml @ 100 mls/hr DURING DIALYSIS PRN IV BLOOD PRESSURE SUPPORT Last administered on 10/31/18 08:22; Admin Dose 100 MLS/HR; Start 10/13/18 at 11:30 Magnesium Hydroxide (Milk Of Mag) 30 ml DAILY PRN PO CONSTIPATION; Start 10/16/18 at 06:30 Furosemide (Lasix) 40 mg DAILY PO Last administered on 10/30/18 08:11; Admin Dose 40 MG; Start 10/20/18 at 09:00 Heparin Sodium (Porcine) (Heparin (1000 Units/ml)) 500 unit WITH DIALYSIS HE Last administered on 10/31/18 10:21; Admin Dose 500 UNIT; Start 10/20/18 at 10:00 Heparin Sodium (Porcine) (Heparin (1000 Units/ml)) 1,500 unit WITH DIALYSIS HE Last administered on 10/31/18 10:21; Admin Dose 1,500 UNIT; Start 10/20/18 at 10:00 Ondansetron HCl (Zofran Tab) 4 mg Q6H PRN PO NAUSEA AND/OR VOMITING; Start 10/20/18 at 17:30 Epoetin Jero-epbx (Retacrit (Esrd)) 10,000 unit MoWeFr@1700 SC Last administered on 10/29/18 18:17; Admin Dose 10,000 UNIT; Start 10/24/18 at 17:00 Guaifenesin/ Dextromethorphan (Robitussin Dm Liquid Cup) 10 ml Q4H PRN PO cough Last administered on 10/25/18 15:49; Admin Dose 10 ML; Start 10/24/18 at 11:00 Insulin Glargine (Lantus) 20 units DAILY@0830 SC Last administered on 10/31/18 10:48; Admin Dose 20 UNITS; Start 10/26/18 at 08:30 Ciprofloxacin (Cipro) 500 mg DAILY@06 GTB Last administered on 10/31/18at 06:02; Admin Dose 500 MG; Start 10/29/18 at 06:00; Stop 11/01/18 at 05:59 Alteplase, Recombinant (Cathflo (Activase)) 4 mg MAY REPEAT X1 PRN CATHETER IF CATHETER REMAINS OCCULUDED Last administered on 10/31/18at 10:19; Admin Dose 2 MG; Start 10/29/18 at 14:00 Apixaban (Eliquis) 5 mg BID PO Last administered on 10/31/18at 10:30; Admin Dose 5 MG; Start 10/29/18 at 21:00 RODRÍGUEZ MOORE MD Oct 31, 2018 17:01
[2018-10-31] MEDS: EPOETIN ALFA-EPBX (ESRD) 10,000 UNIT/ML VIAL SC SCH (17:53)
[2018-10-31] MEDS: ATORVASTATIN 40 MG TAB PO SCH (21:50)
[2018-11-01] VITALS (23 sets, daily range): BP systolic 82–147; BP diastolic 44–88; PULSE 56–93; RESP 18–22
[2018-11-01] MEDS: OXYCODONE/ACETAMINOPHEN (5/325) TAB PO PRN (01:19)
[2018-11-01] MEDS: ACETAMINOPHEN 325 MG TAB PO PRN (04:02)
[2018-11-01] MEDS: ACCU-CHEK XX SCH ×4 (07:54→20:47)
[2018-11-01] MEDS: ASPIRIN 81 MG TAB PO SCH (08:12)
[2018-11-01] MEDS: FUROSEMIDE 40 MG TAB PO SCH (08:12)
[2018-11-01] MEDS: FAMOTIDINE 20 MG TAB PO SCH ×2 (08:12→21:50)
[2018-11-01] MEDS: BALSAM PERU/CASTOR OIL 60 GM TUBE TOP SCH (08:13)
[2018-11-01] MEDS: APIXABAN 5 MG TABLET PO SCH ×2 (08:13→21:50)
--- NOTE | 2018-11-01 08:40 | CONS ---
Assessment/Plan Assessment/Plan Assessment/Plan (Daily) 1. acute Hyperkalemia due to GI bleeding- resolved 2.Acute fluid overload- now resolved 3. acute GI bleeding causing acute blood loss anemia- S/p Status post EGD/colonoscopy 09/27/19 -Anastomosis ulcer -Normal colonoscopy 4. Severe Anemia with Hb 5.8 on admission s/p 5 U PRBC transfusion for GI ble eding during this admission - pt also has anemia of ESRD 5. H/O HTN 6. H/O peripherla vascular disease 7. ESRD on HD -follow up at [facility] for scheduled HD on MWF 8. 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 Unable to place right IJ by IR due to central stenosis. Now s/p left femoral permacath 10/24 but still intermittently getting clotted- Discussed with Dr. Velasco - Recommended for higher level of care for diffficult HD access, will need IR or vascular surgery at [facility] to address HD access establishment due to IVC thrombosis and Central stenosis s/p HD today 2 L removed , continue Eliquis 2.5 mg PO BID , next HD will be on Saturday and then we will keep pt on MWF schedule Continue lasix to 40mg Po daily Epogen 09867 units SQ MWF will follow up Consultation Date/Type/Reason Admit Date/Time September 24, 2018 at 08:08 Initial Consult Date 09/24/18 Type of Consult NEPHROLOGY Date/Time of Note DATE: 11/01/18 TIME: 08:40 Exam/Review of Systems Exam Vitals Vital Signs Date Temp Pulse Resp B/P (MAP) Pulse Ox O2 O2 Flow FiO2 Time Delivery Rate 11/01/18 Nasal 2.0 07:55 Cannula 11/01/18 78 04:00 11/01/18 98.3 18 124/51 95 04:00 (75) 11/01/18 27 02:39 Intake and Output 10/31/18 10/31/18 11/01/18 1515:00 23:00 07:00 IntakeIntake Total 240 ml OutputOutput Total 3100 ml BalanceBalance -3100 ml 240 ml Results Result Diagram: 10/31/18 1412 10/31/18 1412 Results 24hrs Laboratory Tests Test 10/31/18 10:25 10/31/18 14:12 10/31/18 17:30 10/31/18 21:49 Bedside Glucose 123 203 174 White Blood Count 17.4 H Red Blood Count 2.87 L Hemoglobin 7.7 L Hematocrit 24.5 L Mean Corpuscular Volume 85.4 Mean Corpuscular 26.8 L Hemoglobin Mean Corpuscular 31.4 L Hemoglobin Concent Red Cell Distribution 17.2 H Width Platelet Count 360 Mean Platelet Volume 10.0 Immature Granulocytes % 0.800 H Neutrophils % 88.3 H Lymphocytes % 5.4 L Monocytes % 5.1 Eosinophils % 0.2 Basophils % 0.2 Nucleated Red Blood 0.0 Cells % Immature Granulocytes # 0.140 H Neutrophils # 15.3 H Lymphocytes # 0.9 Monocytes # 0.9 Eosinophils # 0.0 Basophils # 0.0 Nucleated Red Blood 0.0 Cells # Sodium Level 134 L Potassium Level 4.3 Chloride Level 97 Carbon Dioxide Level 20 L Anion Gap 17 H Blood Urea Nitrogen 66 H Creatinine 7.54 H Est Glomerular Filtrat 7 L Rate mL/min Glucose Level 136 Calcium Level 7.8 L Phosphorus Level 7.1 #H Magnesium Level 2.1 Test 11/01/18 07:39 11/01/18 07:52 White Blood Count Pending Red Blood Count Pending Hemoglobin Pending Hematocrit Pending Mean Corpuscular Volume Pending Mean Corpuscular Pending Hemoglobin Mean Corpuscular Pending Hemoglobin Concent Red Cell Distribution Pending Width Platelet Count Pending Mean Platelet Volume Pending Bedside Glucose 244 H Medications Medication Current Medications Oxycodone/ Acetaminophen (Percocet (5/ 325)) 1 tab Q3H PRN PO PAIN LEVEL 1-5 Last administered on 11/01/18at 01:19; Admin Dose 1 TAB; Start 10/07/18 at 21:00 Ondansetron HCl (Zofran Inj) 4 mg Q6H PRN IV NAUSEA AND/OR VOMITING Last admini stered on 10/21/18at 12:10; Admin Dose 4 MG; Start 10/07/18 at 21:00 Famotidine (Pepcid) 20 mg BID PO Last administered on 10/31/18at 21:51; Admin Dose 20 MG; Start 10/08/18 at 21:00 Acetaminophen (Tylenol Tab) 650 mg Q3H PRN PO ELEVATED TEMPERATURE Last administered on 11/01/18 04:02; Admin Dose 650 MG; Start 10/07/18 at 21:00 Atorvastatin Calcium (Lipitor) 40 mg HS PO Last administered on 10/31/18 21:50; Admin Dose 40 MG; Start 10/08/18 at 21:00 Insulin Aspart (Novolog Insulin Pen) NOVOLOG *MODERATE* ALGORITHM WITH MEALS BEDTIME SC Last administered on 10/31/18 18:00; Admin Dose 4 UNIT; Start 10/09/18 at 11:30 Glucose (Glutose) 15 gm Q15M PRN PO DECREASED GLUCOSE; Start 10/09/18 at 12:00 Glucose (Glutose) 22.5 gm Q15M PRN PO DECREASED GLUCOSE; Start 10/09/18 at 12:00 Dextrose (D50w Syringe) 25 ml Q15M PRN IV DECREASED GLUCOSE; Start 10/09/18 at 12:00 Dextrose (D50w Syringe) 50 ml Q15M PRN IV DECREASED GLUCOSE; Start 10/09/18 at 12:00 Glucagon (Glucagen) 1 mg Q15M PRN IM DECREASED GLUCOSE; Start 10/09/18 at 12:00 Glucose (Glutose) 15 gm Q15M PRN BUCCAL DECREASED GLUCOSE Last administered on 10/20/18 18:52; Admin Dose 15 GM; Start 10/09/18 at 12:00 Diagnostic Test (Pha) (Accu-Chek) 1 ea AC MEALS AND BEDTIME XX Last administered on 11/01/18 07:54; Admin Dose 1 EA; Start 10/09/18 at 11:00 Insulin Aspart (Novolog Insulin Pen) 8 unit WITH MEALS SC Last administered on 10/31/18 18:06; Admin Dose 8 UNIT; Start 10/10/18 at 11:30 Aspirin (Aspirin) 81 mg DAILY PO Last administered on 10/31/18 10:31; Admin Dose 81 MG; Start 10/13/18 at 09:00 Albumin Human 100 ml @ 100 mls/hr DURING DIALYSIS PRN IV BLOOD PRESSURE SUPPORT Last administered on 10/31/18 08:22; Admin Dose 100 MLS/HR; Start 10/13/18 at 11:30 Magnesium Hydroxide (Milk Of Mag) 30 ml DAILY PRN PO CONSTIPATION; Start 10/16/18 at 06:30 Furosemide (Lasix) 40 mg DAILY PO Last administered on 10/30/18 08:11; Admin Dose 40 MG; Start 10/20/18 at 09:00 Heparin Sodium (Porcine) (Heparin (1000 Units/ml)) 500 unit WITH DIALYSIS HE Last administered on 10/31/18 10:21; Admin Dose 500 UNIT; Start 10/20/18 at 10 :00 Heparin Sodium (Porcine) (Heparin (1000 Units/ml)) 1,500 unit WITH DIALYSIS HE Last administered on 10/31/18 10:21; Admin Dose 1,500 UNIT; Start 10/20/18 at 10:00 Ondansetron HCl (Zofran Tab) 4 mg Q6H PRN PO NAUSEA AND/OR VOMITING; Start 10/20/18 at 17:30 Epoetin Jero-epbx (Retacrit (Esrd)) 10,000 unit MoWeFr@1700 SC Last administered on 10/31/18 17:53; Admin Dose 10,000 UNIT; Start 10/24/18 at 17:00 Guaifenesin/ Dextromethorphan (Robitussin Dm Liquid Cup) 10 ml Q4H PRN PO cough Last administered on 10/25/18 15:49; Admin Dose 10 ML; Start 10/24/18 at 11:00 Insulin Glargine (Lantus) 20 units DAILY@0830 SC Last administered on 10/31/18 10:48; Admin Dose 20 UNITS; Start 10/26/18 at 08:30 Alteplase, Recombinant (Cathflo (Activase)) 4 mg MAY REPEAT X1 PRN CATHETER IF CATHETER REMAINS OCCULUDED Last administered on 10/31/18 10:19; Admin Dose 2 MG; Start 10/29/18 at 14:00 Apixaban (Eliquis) 2.5 mg BID PO Last administered on 10/31/18 21:51; Admin Dose 2.5 MG; Start 10/31/18 at 21:00 RAQUEL MCDOWELL MD Nov 01, 2018 08:40
[2018-11-01] MEDS: INSULIN ASPART [NOVOLOG] 3 ML PEN SC SCH ×7 (10:19→20:47)
[2018-11-01] MEDS: INSULIN GLARGINE [LANTus] (100 UNITS/ML) SYG SC SCH (10:19)
--- NOTE | 2018-11-01 10:53 | DS ---
Date/Time of Note Date/Time of Note DATE: 11/01/18 TIME: 10:43 Discharge Summary Admission/Discharge Info Admit Date/Time September 24, 2018 at 08:08 Discharge Date/Time Patient Condition: Fair Consults GI Dr Cardoza Cardio: Dr Hernandez CT Surgery: Dr Maciel Nephro: Dr Roni Tobar Vascular: Dr Kim Pereyra Procedures 2D echo Conclusions: Lower limits of normal systolic function. Mild concentric left ventricular hypertrophy. Mild enlargement of left ventricle cavity. Ejection fraction is visually estimated at 50 %. Abnormal Diastolic Function. There is mild enlargement of left atrium. Normal appearance and function of the mitral valve with trace physiologic regurgitation. Mild mitral leaflet calcification. Mild mitral annular calcification. Trace mitral regurgitation. Normal appearance of the tricuspid valve. Estimated peak PA systolic pressure 40 mmHg. There is trace tricuspid regurgitation. PROCEDURE: CABG x4, ÁLVAREZ to LAD, SVG to ramus, SVG to OM1 sequenced to OM2, endoscopic vein harvesting, epiaortic scanning of the ascending aorta. PROCEDURES: 1. Left lower extremity venogram. 2. IVC venogram. 3. Left common femoral vein Perm catheter placement. INDICATIONS: This is a 67-year-old gentleman who presented with plethora of medical conditions who presented with end-stage renal disease and had a malfunction of left upper extremity fistula. Multiple attempts were made to place upper chest wall catheter placements. However secondary to a central stenosis and occlusion, were unsuccessful. The patient had also underwent a right femoral vein attempt which was also unsuccessful. The patient had a temporary left femoral vein dialysis catheter placed and was functional and now, the patient has been coming along well from the standpoint of his cardiovascular status in which he had done recently underwent CABG and requires a Perm catheter placement. Therefore, the decision was made to perform a venogram and evaluate if the patient is able to have a Perm catheter placed. Risks and benefits and alternatives were discussed with the patient and . They understood all that is involved and agreed to proceed. was able to repeat all the information back to me and a certified fisheries technical officer was present for further evaluation. Risks including but not limited to bleeding, thrombosis, embolization, myocardial infarction, , stroke, device malfunction, infection, nephrotoxicity and the patient has agreed to proceed. DESCRIPTION OF PROCEDURE: The patient was brought into the operating room table, placed in the angio suite, placed in supine position. The incision was not given secondary to his multiple comorbidities. The left groin was then shaved, prepped and draped in usual standard sterile fashion. Timeout and appropriate site were marked and confirmed. Local incision was infiltrated in the region of the left common femoral vein around Madi catheter. The upper anterolateral aspect of the thigh was also anesthetized with 1% lidocaine. At this point, passing a stiff wire via the venous port of the Madi catheter, a wire was placed in the distal aspect and proximal aspect of the common iliac vein. At this point, the catheter was pulled back and a 7-Tamazight sheath was placed in the common femoral vein. At this point, a left lower extremity venogram was performed and also IVC venogram was performed. 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 There was very large collateralization that was identified as well. At this point, decision was made that patient would not be able to have extended length of a Perm catheter. However, a 19 cm catheter would possibly be workable for him and therefore sheath was removed and using a 19 cm PermCath was decided to be used at this point. Our catheter was tunneled via a stab incision that was made in the arterial aspect of the upper thigh. It was tunneled towards the puncture site. At this point, our Perm catheter was pulled through and the peelaway sheath was then placed over the stiff wire in the left common femoral vein. At this point, the inner dilator and wire were removed and the P erm catheter was placed in satisfactory position through the peelaway sheath which was also removed as well. At this point, we performed a venogram which identified a Perm catheter in adequate position, adequate flushing and draw back of the catheter was performed which was adequate. Heparin was placed in each port. The catheter was then secured with a 3-0 nylon suture. Sterile dressing was applied. The patient tolerated procedure well and was taken back to his room. The patient may undergo dialysis via the new Perm catheter replacement. Dictated By: VANIA PEREYRA MD Hx of Present Illness 67-year-old gentleman admitted with fatigue. Found to have significant anemia in the ER. Hospital Course Hospitalist coverage/hospital course -Highly complicated and lengthy hospital stay for multiple comorbidities. Initially admitted with symptomatic anemia underwent EGD found to have anastomotic ulcer. Colonoscopy deferred due to his next comorbidity which was an NSTEMI. Underwent cath found to have multivessel disease. Underwent CABG next. Next managed for acute cholecystitis. Treatment was conservative due to his comorbidities. During his hospital stay, we additionally had issues with PAD. He is being treated conservatively. During his hospital stay we additionally had issues with his dialysis access. We tried right groin, then IJ, and now he presently has left lower extremity access. He has Central Stenosis, and we are presently looking for Tertiary assistance. Assessment and plan 1. Symptomatic anemia; sp. EGD showing an anastomotic ulcer. Colonoscopy deferred. Stable, transfer to Tertiary. 2. H/o Billroth II surgery 3. ESRD stable cont HD. Needs [facility] assistance for access 4. Dm 5. Morbid obesity 6. DVT PE status 7. Chronic type II arrhythmia Mobitz 8. PAD, chronic/ bilat. h/o Angio 08/12; lt 3rd digit ulcer/ Dry gangrene. Now progressive with its first and second digit dz; recomm is conservative mngmnt. Amputation prn 9. NSTEMI status post cath 10. CAD/ multivessel dz, status post CABG 11. Acute cholecystitis, finish antibiotics. Not a candidate for cholecystectomy 12. A. fib/flutter continue rate control and long-term anticoagulation 13. Central occlusion sp common femoral PermCath for now. Failed left AV graft, rt Madi, and rt IJ; [facility] transfer pending 14. Failure to thrive; snf vs Home Meds Reported Medications Clopidogrel Bisulfate (Clopidogrel) 75 Mg Tablet, 75 MG PO DAILY, #30 TAB 09/24/18 Ezetimibe* (Zetia*) 10 Mg Tablet, 10 MG PO DAILY, TAB 08/29/18 Insulin Lispro (Humalog Kwikpen U-100) 100 Unit/1 Ml Insuln.pen, 0 SQ SLIDING SCALE, EA 08/28/18 Insulin Glargine* (Lantus*) 100 Unit/Ml Soln, 0 SC QHS, #1 VIAL 45-52 UNITS 08/28/18 Metolazone* (Metolazone*) 5 Mg Tablet, 10 MG PO BID, TAB 08/28/18 Multivit/Ca Carb/B Cmplx/Fa* (Isabel-Brneda*) 1 Tab Tab, 1 TAB PO DAILY, TAB 08/28/18 Furosemide* (Furosemide*) 80 Mg Tablet, 160 MG PO BID, #60 TAB 08/28/18 Folic Acid* (Folic Acid*) 1 Mg Tablet, 1 MG PO DAILY, TAB 08/28/18 Apixaban* (Eliquis*) 5 Mg Tablet, 5 MG PO BID, TAB 08/28/18 Sevelamer Carbonate* (Renvela*) 800 Mg Tablet, 0.8 GM PO WITH MEALS, TAB 08/28/18 Primary Care Provider Not On Staff Doctor Time spent on discharge: > 30 minutes Pending Labs Laboratory Tests Test 10/31/18 14:12 10/31/18 17:30 10/31/18 21:49 11/01/18 07:39 White Blood 17.4 14.3 Count 10^3/ul (4.8-10 10^3/ul (4.8-1 .8) 0.8) Red Blood 2.87 3.26 Count 10^6/ul (4.70-6 10^6/ul (4.70- .10) 6.10) Hemoglobin 7.7 8.7 g/dl (14.0-18.0 g/dl (14.0-18. ) 0) Hematocrit 24.5 27.8 % (42.0-52.0) % (42.0-52.0) Mean 85.4 85.3 Corpuscular fl (82.0-101.0) fl (82.0-101.0 Volume ) Mean 26.8 26.7 Corpuscular pg (29.0-33.0) pg (29.0-33.0) Hemoglobin Mean 31.4 31.3 Corpuscular g/dl (32.0-37.0 g/dl (32.0-37. Hemoglobin Conc ) 0) ent Red Cell 17.2 17.1 Distribution % (11.5-14.5) % (11.5-14.5) Width Platelet Count 360 337 10^3/UL (140-41 10^3/UL (140-4 5) 15) Mean Platelet 10.0 10.3 Volume fl (7.4-10.4) fl (7.4-10.4) Immature 0.800 1.600 Granulocytes % % (0.001-0.429) % (0.001-0.429 ) Neutrophils % 88.3 79.4 % (39.0-77.0) % (39.0-77.0) Lymphocytes % 5.4 10.1 % (15.0-51.0) % (15.0-51.0) Monocytes % 5.1 7.9 % (0.0-11.0) % (0.0-11.0) Eosinophils % 0.2 % (0.0-7.0) 0.6 % (0.0-7.0) Basophils % 0.2 % (0.0-2.0) 0.4 % (0.0-2.0) Nucleated Red 0.0 0.0 Blood Cells % /100WBC (0.0-0. /100WBC (0.0-0 0) .0) Immature 0.140 0.230 Granulocytes # 10^3/ul (0.0-0. 10^3/ul (0.0-0 031) .031) Neutrophils # 15.3 11.3 10^3/ul (1.6-7. 10^3/ul (1.6-7 5) .5) Lymphocytes # 0.9 1.4 10^3/ul (0.8-2. 10^3/ul (0.8-2 9) .9) Monocytes # 0.9 1.1 10^3/ul (0.3-0. 10^3/ul (0.3-0 9) .9) Eosinophils # 0.0 0.1 10^3/ul (0.0-0. 10^3/ul (0.0-0 5) .5) Basophils # 0.0 0.1 10^3/ul (0.0-0. 10^3/ul (0.0-0 1) .1) Nucleated Red 0.0 0.0 Blood Cells # 10^3/ul (0.0-0. 10^3/ul (0.0-0 0) .0) Sodium Level 134 131 mmol/L (135-144 mmol/L (135-14 ) 4) Potassium 4.3 4.9 Level mmol/L (3.5-5.1 mmol/L (3.5-5. ) 1) Chloride Level 97 95 mmol/L (97-110) mmol/L (97-110 ) Carbon Dioxide 20 16 Level mmol/L (21-31) mmol/L (21-31) Anion Gap 17 (5-13) 20 (5-13) Blood Urea 66 mg/dl (7-20) 83 Nitrogen mg/dl (7-20) Creatinine 7.54 8.60 mg/dl (0.61-1.2 mg/dl (0.61-1. 4) 24) Est Glomerular 7 mL/min (>60) 6 mL/min (>60) Filtrat Rate mL/min Glucose Level 136 251 mg/dl (70-220) mg/dl (70-220) Calcium Level 7.8 7.5 mg/dl (8.4-10.2 mg/dl (8.4-10. ) 2) Phosphorus 7.1 8.8 Level mg/dl (2.5-4.9) mg/dl (2.5-4.9 ) Magnesium 2.1 2.2 Level mg/dl (1.7-2.5) mg/dl (1.7-2.5 ) Bedside 203 174 Glucose mg/dL (70-220) mg/dL (70-220) Segmented 81 % (39-77) Neutrophils % (Manual) Band 1 % (0-4) Neutrophils % (Manual) Lymphocytes % 11 % (15-51) (Manual) Monocytes % 7 % (0-11) (Manual) Neutrophils # 11.6 (Manual) 10^3/ul (1.6-7 .5) Band 0.1 Neutrophils # 10^3/ul (0.0-0 .6) Lymphocytes 1.5 (Manual) 10^3/ul (0.8-2 .9) Monocytes # 1.0 (Manual) 10^3/ul (0.3-0 .9) Platelet NORMAL Estimate Polychromasia 3+ (0-0) Hypochromasia 1+ (0-0) Poikilocytosis 1+ (0-0) Anisocytosis 1+ (0-0) Test 11/01/18 07:52 Bedside 244 Glucose mg/dL (70-220) RODRÍGUEZ MOORE MD Nov 01, 2018 10:53
--- NOTE | 2018-11-01 12:43 | PDOCDIS ---
Discharge Instructions CONDITION [id number] Patient Condition: [id number] Fair HOME CARE INSTRUCTIONS: [id number] Diet Instructions: [id number] ACTIVITY: [id number] Activity Restrictions: [id number] Rest between Activity Do not Drive FOLLOW UP/APPOINTMENTS Follow-up Plan Cardiothoracic surgery Dr. Maciel Cardiology Dr. David Cardoza Vascular Dr. Kim Mejia Nephrology RODRÍGUEZ Siu MD Nov 01, 2018 12:43
--- NOTE | 2018-11-01 16:18 | CONS ---
Assessment/Plan Assessment/Plan Hospital Course (Demo Recall) Afib/flutter: new onset, rates controlled. Now on Eliquis Cholecystitis: started on antibiotics. Seen on CT. No symptoms or exam findings CAD s/p CABG: CABG x4 10/07/18, ÁLVAREZ to LAD, SVG to ramus, SVG to OM1 sequenced to OM2. Doing well. Extubated 10/08, off pressors NSTEMI: Trop peak 1.1 and trended down. S/p cath 09/30/18 with diffuse multivessel CAD. CABG as above Upper GI bleed: due to anastomotic ulcer seen on EGD 09/26. No bleeding since. Hgb relatively stable. Anemia: due to above. s/p 5 units PRBCs and 2 units intraop. Joekebach: Kaylee 1. Not on BB. No pauses or high grade block. 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 Unable to place right IJ. Now s/p left femoral permacath 10/24 which clotted but started to work again HTN H/o Billroth Depression: now on meds -awaiting transfer to [facility] -Eliquis 5mg BID as he is <80 years old and >60kg even on HD -antibiotics -ASA 81mg -continue to hold metoprolol as pt has bradycardia -lipitor 40mg -lasix 40mg PO -HD per nephrology Consultation Date/Type/Reason Admit Date/Time September 24, 2018 at 08:08 Initial Consult Date 10/01/18 Type of Consult Cardiology Date/Time of Note DATE: 11/01/18 TIME: 16:16 24 HR Interval Summary Free Text/Dictation No acute events. Awaiting transfer to [facility]. Detailed Summary Additional Comments 14 point review of systems without changes. Exam/Review of Systems Vital Signs Vitals Vital Signs Date Temp Pulse Resp B/P (MAP) Pulse Ox O2 O2 Flow FiO2 Time Delivery Rate 11/01/18 98.0 56 22 147/66 93 Room Air 16:03 (93) 11/01/18 2.0 07:55 11/01/18 27 02:39 Intake and Output 610/31/18 11/01/18 1515:00 23:00 07:00 IntakeIntake Total 240 ml OutputOutput Total 3100 ml BalanceBalance -3100 ml 240 ml Exam Constitutional: alert, well developed Psych: no complaints Head: normocephalic, atraumatic Eyes: nl conjunctiva, nl lids ENMT: nl external ears & nose, nl nasal mucosa & septum Neck: supple, non-tender Respiratory: diminished breath sounds Cardiovascular: regular rate and rhythm Gastrointestinal: soft, non-tender Musculoskeletal: nl extremities to inspection Labs Result Diagram: 11/01/18 0739 11/01/18 0739 Results 24hrs Laboratory Tests Test 10/31/18 17:30 10/31/18 21:49 11/01/18 07:39 11/01/18 07:52 Bedside Glucose 203 174 244 H White Blood Count 14.3 H Red Blood Count 3.26 L Hemoglobin 8.7 L Hematocrit 27.8 L Mean Corpuscular Volume 85.3 Mean Corpuscular 26.7 L Hemoglobin Mean Corpuscular 31.3 L Hemoglobin Concent Red Cell Distribution 17.1 H Width Platelet Count 337 Mean Platelet Volume 10.3 Immature Granulocytes % 1.600 H Neutrophils % 79.4 H Segmented Neutrophils 81 H % (Manual) Band Neutrophils % 1 (Manual) Lymphocytes % 10.1 L Lymphocytes % (Manual) 11 L Monocytes % 7.9 Monocytes % (Manual) 7 Eosinophils % 0.6 Basophils % 0.4 Nucleated Red Blood 0.0 Cells % Immature Granulocytes # 0.230 H Neutrophils # 11.3 H Neutrophils # (Manual) 11.6 H Band Neutrophils # 0.1 Lymphocytes (Manual) 1.5 Lymphocytes # 1.4 Monocytes # 1.1 H Monocytes # (Manual) 1.0 H Eosinophils # 0.1 Basophils # 0.1 Nucleated Red Blood 0.0 Cells # Platelet Estimate NORMAL Polychromasia 3+ Hypochromasia 1+ Poikilocytosis 1+ Anisocytosis 1+ Sodium Level 131 L Potassium Level 4.9 Chloride Level 95 L Carbon Dioxide Level 16 L Anion Gap 20 H Blood Urea Nitrogen 83 H Creatinine 8.60 H Est Glomerular Filtrat 6 L Rate mL/min Glucose Level 251 #H Calcium Level 7.5 L Phosphorus Level 8.8 H Magnesium Level 2.2 Test 11/01/18 12:20 Bedside Glucose 189 Medications Medications Current Medications Oxycodone/ Acetaminophen (Percocet (5/ 325)) 1 tab Q3H PRN PO PAIN LEVEL 1-5 Last administered on 11/01/18 01:19; Admin Dose 1 TAB; Start 10/07/18 at 21:00 Ondansetron HCl (Zofran Inj) 4 mg Q6H PRN IV NAUSEA AND/OR VOMITING Last administered on 10/21/18 12:10; Admin Dose 4 MG; Start 10/07/18 at 21:00 Famotidine (Pepcid) 20 mg BID PO Last administered on 11/01/18 08:12; Admin Dose 20 MG; Start 10/08/18 at 21:00 Acetaminophen (Tylenol Tab) 650 mg Q3H PRN PO ELEVATED TEMPERATURE Last administered on 11/01/18 04:02; Admin Dose 650 MG; Start 10/07/18 at 21:00 Atorvastatin Calcium (Lipitor) 40 mg HS PO Last administered on 10/31/18 21:50; Admin Dose 40 MG; Start 10/08/18 at 21:00 Insulin Aspart (Novolog Insulin Pen) NOVOLOG *MODERATE* ALGORITHM WITH MEALS BEDTIME SC Last administered on 11/01/18 12:43; Admin Dose 4 UNIT; Start 10/09/18 at 11:30 Glucose (Glutose) 15 gm Q15M PRN PO DECREASED GLUCOSE; Start 10/09/18 at 12:00 Glucose (Glutose) 22.5 gm Q15M PRN PO DECREASED GLUCOSE; Start 10/09/18 at 12:00 Dextrose (D50w Syringe) 25 ml Q15M PRN IV DECREASED GLUCOSE; Start 10/09/18 at 12:00 Dextrose (D50w Syringe) 50 ml Q15M PRN IV DECREASED GLUCOSE; Start 10/09/18 at 12:00 Glucagon (Glucagen) 1 mg Q15M PRN IM DECREASED GLUCOSE; Start 10/09/18 at 12:00 Glucose (Glutose) 15 gm Q15M PRN BUCCAL DECREASED GLUCOSE Last administered on 10/20/18 18:52; Admin Dose 15 GM; Start 10/09/18 at 12:00 Diagnostic Test (Pha) (Accu-Chek) 1 ea AC MEALS AND BEDTIME XX Last administered on 11/01/18 11:20; Admin Dose 1 EA; Start 10/09/18 at 11:00 Aspirin (Aspirin) 81 mg DAILY PO Last administered on 11/01/18 08:12; Admin Dose 81 MG; Start 10/13/18 at 09:00 Albumin Human 100 ml @ 100 mls/hr DURING DIALYSIS PRN IV BLOOD PRESSURE SUPPORT Last administered on 10/31/18 08:22; Admin Dose 100 MLS/HR; Start 10/13/18 at 11:30 Magnesium Hydroxide (Milk Of Mag) 30 ml DAILY PRN PO CONSTIPATION; Start 10/16/18 at 06:30 Furosemide (Lasix) 40 mg DAILY PO Last administered on 11/01/18 08:12; Admin Dose 40 MG; Start 10/20/18 at 09:00 Heparin Sodium (Porcine) (Heparin (1000 Units/ml)) 500 unit WITH DIALYSIS HE Last administered on 10/31/18 10:21; Admin Dose 500 UNIT; Start 10/20/18 at 10:00 Heparin Sodium (Porcine) (Heparin (1000 Units/ml)) 1,500 unit WITH DIALYSIS HE Last administered on 10/31/18 10:21; Admin Dose 1,500 UNIT; Start 10/20/18 at 10:00 Ondansetron HCl (Zofran Tab) 4 mg Q6H PRN PO NAUSEA AND/OR VOMITING; Start 10/20/18 at 17:30 Epoetin Jero-epbx (Retacrit (Esrd)) 10,000 unit MoWeFr@1700 SC Last administered on 10/31/18 17:53; Admin Dose 10,000 UNIT; Start 10/24/18 at 17:00 Guaifenesin/ Dextromethorphan (Robitussin Dm Liquid Cup) 10 ml Q4H PRN PO cough Last administered on 10/25/18 15:49; Admin Dose 10 ML; Start 10/24/18 at 11:00 Alteplase, Recombinant (Cathflo (Activase)) 4 mg MAY REPEAT X1 PRN CATHETER IF CATHETER REMAINS OCCULUDED Last administered on 10/31/18 10:19; Admin Dose 2 MG; Start 10/29/18 at 14:00 Apixaban (Eliquis) 2.5 mg BID PO Last administered on 11/01/18 08:13; Admin Dose 2.5 MG; Start 10/31/18 at 21:00 Insulin Aspart (Novolog Insulin Pen) 7 unit WITH MEALS SC Last administered on 11/01/18at 12:43; Admin Dose 7 UNIT; Start 11/01/18 at 11:50 Insulin Glargine (Lantus) 21 units DAILY@0830 SC ; Start 11/02/18 at 08:30 QUIANA SHAH MD Nov 01, 2018 16:18
[2018-11-01] MEDS: HEPARIN 1000 UNITS/ML 10 ML INJ HE SCH (18:16)
[2018-11-01] MEDS: ALBUMIN HUMAN 25% 100 ML IV PRN (18:32)
[2018-11-01] MEDS: ALTEPLASE (CATHFLO) 2 MG INJ CATHETER PRN (20:44)
[2018-11-01] MEDS: ATORVASTATIN 40 MG TAB PO SCH (21:50)
[2018-11-02] VITALS (13 sets, daily range): BP systolic 99–132; BP diastolic 38–55; PULSE 57–111; RESP 20–22
[2018-11-02] MEDS: ACCU-CHEK XX SCH ×4 (07:25→20:14)
[2018-11-02] MEDS: FUROSEMIDE 40 MG TAB PO SCH (08:27)
[2018-11-02] MEDS: APIXABAN 5 MG TABLET PO SCH ×2 (08:27→20:15)
[2018-11-02] MEDS: FAMOTIDINE 20 MG TAB PO SCH (08:28)
[2018-11-02] MEDS: ASPIRIN 81 MG TAB PO SCH (08:28)
[2018-11-02] MEDS: INSULIN ASPART [NOVOLOG] 3 ML PEN SC SCH ×7 (08:59→20:14)
[2018-11-02] MEDS: INSULIN GLARGINE [LANTus] (100 UNITS/ML) SYG SC SCH (08:59)
[2018-11-02] MEDS: BALSAM PERU/CASTOR OIL 60 GM TUBE TOP SCH (09:00)
--- NOTE | 2018-11-02 16:05 | CONS ---
Assessment/Plan Assessment/Plan Hospital Course (Demo Recall) Afib/flutter: new onset, rates controlled. Now on Eliquis Cholecystitis: started on antibiotics. Seen on CT. No symptoms or exam findings CAD s/p CABG: CABG x4 10/07/18, ÁLVAREZ to LAD, SVG to ramus, SVG to OM1 sequenced to OM2. Doing well. Extubated 10/08, off pressors NSTEMI: Trop peak 1.1 and trended down. S/p cath 09/30/18 with diffuse multivessel CAD. CABG as above Upper GI bleed: due to anastomotic ulcer seen on EGD 09/26. No bleeding since. Hgb relatively stable. Anemia: due to above. s/p 5 units PRBCs and 2 units intraop. Joekebach: Kaylee 1. Not on BB. No pauses or high grade block. 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 Unable to place right IJ. Now s/p left femoral permacath 10/24 which clotted but started to work again HTN H/o Billroth Depression: now on meds -awaiting transfer to [facility] -Eliquis 5mg BID as he is <80 years old and >60kg even on HD -antibiotics -ASA 81mg -continue to hold metoprolol as pt has bradycardia -lipitor 40mg -lasix 40mg PO -HD per nephrology Consultation Date/Type/Reason Admit Date/Time September 24, 2018 at 08:08 Initial Consult Date 10/01/18 Type of Consult Cardiology Date/Time of Note DATE: 11/02/18 TIME: 16:04 24 HR Interval Summary Free Text/Dictation No acute events. Awaiting transfer to [facility]. Detailed Summary Additional Comments 14 point review of systems without changes. Exam/Review of Systems Vital Signs Vitals Vital Signs Date Temp Pulse Resp B/P (MAP) Pulse Ox O2 O2 Flow FiO2 Time Delivery Rate 11/02/18 98.0 87 20 108/50 97 15:11 (69) 11/02/18 2.0 28 13:13 11/02/18 Nasal 12:52 Cannula Intake and Output 611/01/18 11/02/18 1515:00 23:00 07:00 IntakeIntake Total 150 ml OutputOutput Total 2500 ml BalanceBalance -2500 ml 150 ml Exam Exam Constitutional: alert, well developed Psych: no complaints Head: normocephalic, atraumatic Eyes: nl conjunctiva, nl lids ENMT: nl external ears & nose, nl nasal mucosa & septum Neck: supple, non-tender Respiratory: diminished breath sounds Cardiovascular: regular rate and rhythm Gastrointestinal: soft, non-tender Musculoskeletal: nl extremities to inspection Labs Result Diagram: 11/02/18 0550 11/02/18 1041 Results 24hrs Laboratory Tests Test 11/01/18 18:14 11/01/18 20:44 11/02/18 05:50 11/02/18 08:25 Bedside Glucose 94 94 173 White Blood Count 12.4 H Red Blood Count 3.40 L Hemoglobin 8.8 L Hematocrit 29.7 L Mean Corpuscular Volume 87.4 Mean Corpuscular 25.9 L Hemoglobin Mean Corpuscular 29.6 L Hemoglobin Concent Red Cell Distribution 17.4 H Width Platelet Count 358 Mean Platelet Volume 10.2 Immature Granulocytes % 0.700 H Neutrophils % 80.8 H Lymphocytes % 10.0 L Monocytes % 7.6 Eosinophils % 0.6 Basophils % 0.3 Nucleated Red Blood 0.0 Cells % Immature Granulocytes # 0.090 H Neutrophils # 10.0 H Lymphocytes # 1.2 Monocytes # 0.9 Eosinophils # 0.1 Basophils # 0.0 Nucleated Red Blood 0.0 Cells # Test 11/02/18 10:41 11/02/18 12:01 Sodium Level 135 Potassium Level 4.4 Chloride Level 96 L Carbon Dioxide Level 22 Anion Gap 17 H Blood Urea Nitrogen 60 H Creatinine 7.12 H Est Glomerular Filtrat 8 L Rate mL/min Glucose Level 186 Calcium Level 7.7 L Bedside Glucose 166 Medications Medications Current Medications Oxycodone/ Acetaminophen (Percocet (5/ 325)) 1 tab Q3H PRN PO PAIN LEVEL 1-5 Last administered on 11/01/18at 01:19; Admin Dose 1 TAB; Start 10/07/18 at 21:00 Ondansetron HCl (Zofran Inj) 4 mg Q6H PRN IV NAUSEA AND/OR VOMITING Last administered on 10/21/18at 12:10; Admin Dose 4 MG; Start 10/07/18 at 21:00 Famotidine (Pepcid) 20 mg BID PO Last administered on 11/02/18 08:28; Admin Dose 20 MG; Start 10/08/18 at 21:00 Acetaminophen (Tylenol Tab) 650 mg Q3H PRN PO ELEVATED TEMPERATURE Last administered on 11/01/18 04:02; Admin Dose 650 MG; Start 10/07/18 at 21:00 Atorvastatin Calcium (Lipitor) 40 mg HS PO Last administered on 11/01/18 21:50; Admin Dose 40 MG; Start 10/08/18 at 21:00 Insulin Aspart (Novolog Insulin Pen) NOVOLOG *MODERATE* ALGORITHM WITH MEALS BEDTIME SC Last administered on 11/02/18 13:51; Admin Dose 2 UNIT; Start 10/09/18 at 11:30 Glucose (Glutose) 15 gm Q15M PRN PO DECREASED GLUCOSE; Start 10/09/18 at 12:00 Glucose (Glutose) 22.5 gm Q15M PRN PO DECREASED GLUCOSE; Start 10/09/18 at 12:00 Dextrose (D50w Syringe) 25 ml Q15M PRN IV DECREASED GLUCOSE; Start 10/09/18 at 12:00 Dextrose (D50w Syringe) 50 ml Q15M PRN IV DECREASED GLUCOSE; Start 10/09/18 at 12:00 Glucagon (Glucagen) 1 mg Q15M PRN IM DECREASED GLUCOSE; Start 10/09/18 at 12:00 Glucose (Glutose) 15 gm Q15M PRN BUCCAL DECREASED GLUCOSE Last administered on 10/20/18 18:52; Admin Dose 15 GM; Start 10/09/18 at 12:00 Diagnostic Test (Pha) (Accu-Chek) 1 ea AC MEALS AND BEDTIME XX Last administered on 11/02/18 11:20; Admin Dose 1 EA; Start 10/09/18 at 11:00 Aspirin (Aspirin) 81 mg DAILY PO Last administered on 11/02/18 08:28; Admin Dose 81 MG; Start 10/13/18 at 09:00 Albumin Human 100 ml @ 100 mls/hr DURING DIALYSIS PRN IV BLOOD PRESSURE SUPPORT Last administered on 11/01/18 18:32; Admin Dose 100 MLS/HR; Start 10/13/18 at 11:30 Magnesium Hydroxide (Milk Of Mag) 30 ml DAILY PRN PO CONSTIPATION; Start 10/16/18 at 06:30 Furosemide (Lasix) 40 mg DAILY PO Last administered on 11/02/18 08:27; Admin Do se 40 MG; Start 10/20/18 at 09:00 Heparin Sodium (Porcine) (Heparin (1000 Units/ml)) 500 unit WITH DIALYSIS HE Last administered on 10/31/18 10:21; Admin Dose 500 UNIT; Start 10/20/18 at 10:00 Heparin Sodium (Porcine) (Heparin (1000 Units/ml)) 1,500 unit WITH DIALYSIS HE Last administered on 11/01/18 18:16; Admin Dose 1,500 UNIT; Start 10/20/18 at 10:00 Ondansetron HCl (Zofran Tab) 4 mg Q6H PRN PO NAUSEA AND/OR VOMITING; Start 10/20/18 at 17:30 Epoetin Jero-epbx (Retacrit (Esrd)) 10,000 unit MoWeFr@1700 SC Last administered on 10/31/18 17:53; Admin Dose 10,000 UNIT; Start 10/24/18 at 17:00 Guaifenesin/ Dextromethorphan (Robitussin Dm Liquid Cup) 10 ml Q4H PRN PO cough Last administered on 10/25/18 15:49; Admin Dose 10 ML; Start 10/24/18 at 11:00 Alteplase, Recombinant (Cathflo (Activase)) 4 mg MAY REPEAT X1 PRN CATHETER IF CATHETER REMAINS OCCULUDED Last administered on 11/01/18 20:44; Admin Dose 4 MG; Start 10/29/18 at 14:00 Apixaban (Eliquis) 2.5 mg BID PO Last administered on 11/02/18 08:27; Admin Dose 2.5 MG; Start 10/31/18 at 21:00 Insulin Aspart (Novolog Insulin Pen) 7 unit WITH MEALS SC Last administered on 11/02/18 13:51; Admin Dose 7 UNIT; Start 11/01/18 at 11:50 Insulin Glargine (Lantus) 21 units DAILY@0830 SC Last administered on 11/02/18 08:59; Admin Dose 21 UNITS; Start 11/02/18 at 08:30 QUIANA SHAH MD Nov 02, 2018 16:05
--- NOTE | 2018-11-02 16:53 | CONS ---
Assessment/Plan Assessment/Plan Assessment/Plan (Daily) 1. acute Hyperkalemia due to GI bleeding- resolved 2.Acute fluid overload- now resolved 3. acute GI bleeding causing acute blood loss anemia- S/p Status post EGD/colonoscopy 09/27/19 -Anastomosis ulcer -Normal colonoscopy 4. Severe Anemia with Hb 5.8 on admission s/p 5 U PRBC transfusion for GI ble eding during this admission - pt also has anemia of ESRD 5. H/O HTN 6. H/O peripherla vascular disease 7. ESRD on HD -follow up at [facility] for scheduled HD on MWF 8. 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 Unable to place right IJ by IR due to central stenosis. Now s/p left femoral permacath 10/24 but still intermittently getting clotted- Discussed with Dr. Velasco - Recommended for higher level of care for diffficult HD access, will need IR or vascular surgery at Tertiary center to address HD access establishment due to IVC thrombosis and Central stenosis s/p HD yesterday 2 L removed , continue Eliquis 2.5 mg PO BID ,HD ordered for saturday and then we will keep pt on MWF schedule Continue lasix to 40mg Po daily Epogen 25627 units SQ MWF will follow up Consultation Date/Type/Reason Admit Date/Time September 24, 2018 at 08:08 Initial Consult Date 09/24/18 Type of Consult NEPHROLOGY Date/Time of Note DATE: 11/02/18 TIME: 16:53 24 HR Interval Summary Free Text/Dictation s/p HD yesterday 2 L removed, catheter worked ok, BP stable Exam/Review of Systems Exam Vitals Vital Signs Date Temp Pulse Resp B/P (MAP) Pulse Ox O2 O2 Flow FiO2 Time Delivery Rate 11/02/18 98.0 87 20 108/50 97 15:11 (69) 11/02/18 2.0 28 13:13 11/02/18 Nasal 12:52 Cannula Intake and Output 11/01/18 11/01/18 11/02/18 1515:00 23:00 07:00 IntakeIntake Total 150 ml OutputOutput Total 2500 ml BalanceBalance -2500 ml 150 ml Exam Constitutional: alert, awake no acute distress Neck: supple, no JVD, no LAD Respiratory: crackles/rales, diminished breath sounds Cardiovascular: regular rate and rhythm, nl pulses, Scar healthy Gastrointestinal: soft, non-tender Musculoskeletal: swelling Extremities: 1+ pitting edema, left groin permacath 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: awake, alert, non focal Results Result Diagram: 11/02/18 0550 11/02/18 1041 Results 24hrs Laboratory Tests Test 11/01/18 18:14 11/01/18 20:44 11/02/18 05:50 11/02/18 08:25 Bedside Glucose 94 94 173 White Blood Count 12.4 H Red Blood Count 3.40 L Hemoglobin 8.8 L Hematocrit 29.7 L Mean Corpuscular Volume 87.4 Mean Corpuscular 25.9 L Hemoglobin Mean Corpuscular 29.6 L Hemoglobin Concent Red Cell Distribution 17.4 H Width Platelet Count 358 Mean Platelet Volume 10.2 Immature Granulocytes % 0.700 H Neutrophils % 80.8 H Lymphocytes % 10.0 L Monocytes % 7.6 Eosinophils % 0.6 Basophils % 0.3 Nucleated Red Blood 0.0 Cells % Immature Granulocytes # 0.090 H Neutrophils # 10.0 H Lymphocytes # 1.2 Monocytes # 0.9 Eosinophils # 0.1 Basophils # 0.0 Nucleated Red Blood 0.0 Cells # Test 11/02/18 10:41 11/02/18 12:01 Sodium Level 135 Potassium Level 4.4 Chloride Level 96 L Carbon Dioxide Level 22 Anion Gap 17 H Blood Urea Nitrogen 60 H Creatinine 7.12 H Est Glomerular Filtrat 8 L Rate mL/min Glucose Level 186 Calcium Level 7.7 L Bedside Glucose 166 Medications Medication Current Medications Oxycodone/ Acetaminophen (Percocet (5/ 325)) 1 tab Q3H PRN PO PAIN LEVEL 1-5 Last administered on 11/01/18at 01:19; Admin Dose 1 TAB; Start 10/07/18 at 21:00 Ondansetron HCl (Zofran Inj) 4 mg Q6H PRN IV NAUSEA AND/OR VOMITING Last administered on 10/21/18at 12:10; Admin Dose 4 MG; Start 10/07/18 at 21:00 Famotidine (Pepcid) 20 mg BID PO Last administered on 11/02/18 08:28; Admin Dose 20 MG; Start 10/08/18 at 21:00 Acetaminophen (Tylenol Tab) 650 mg Q3H PRN PO ELEVATED TEMPERATURE Last administered on 11/01/18 04:02; Admin Dose 650 MG; Start 10/07/18 at 21:00 Atorvastatin Calcium (Lipitor) 40 mg HS PO Last administered on 11/01/18 21:50; Admin Dose 40 MG; Start 10/08/18 at 21:00 Insulin Aspart (Novolog Insulin Pen) NOVOLOG *MODERATE* ALGORITHM WITH MEALS BEDTIME SC Last administered on 11/02/18 13:51; Admin Dose 2 UNIT; Start 10/09/18 at 11:30 Glucose (Glutose) 15 gm Q15M PRN PO DECREASED GLUCOSE; Start 10/09/18 at 12:00 Glucose (Glutose) 22.5 gm Q15M PRN PO DECREASED GLUCOSE; Start 10/09/18 at 12:00 Dextrose (D50w Syringe) 25 ml Q15M PRN IV DECREASED GLUCOSE; Start 10/09/18 at 12:00 Dextrose (D50w Syringe) 50 ml Q15M PRN IV DECREASED GLUCOSE; Start 10/09/18 at 12:00 Glucagon (Glucagen) 1 mg Q15M PRN IM DECREASED GLUCOSE; Start 10/09/18 at 12:00 Glucose (Glutose) 15 gm Q15M PRN BUCCAL DECREASED GLUCOSE Last administered on 10/20/18 18:52; Admin Dose 15 GM; Start 10/09/18 at 12:00 Diagnostic Test (Pha) (Accu-Chek) 1 ea AC MEALS AND BEDTIME XX Last administered on 11/02/18 11:20; Admin Dose 1 EA; Start 10/09/18 at 11:00 Aspirin (Aspirin) 81 mg DAILY PO Last administered on 11/02/18 08:28; Admin Dose 81 MG; Start 10/13/18 at 09:00 Albumin Human 100 ml @ 100 mls/hr DURING DIALYSIS PRN IV BLOOD PRESSURE SUPPORT Last administered on 11/01/18 18:32; Admin Dose 100 MLS/HR; Start 10/13/18 at 11:30 Magnesium Hydroxide (Milk Of Mag) 30 ml DAILY PRN PO CONSTIPATION; Start 10/16/18 at 06:30 Furosemide (Lasix) 40 mg DAILY PO Last administered on 11/02/18 08:27; Admin Dose 40 MG; Start 10/20/18 at 09:00 Heparin Sodium (Porcine) (Heparin (1000 Units/ml)) 500 unit WITH DIALYSIS HE Last administered on 10/31/18 10:21; Admin Dose 500 UNIT; Start 10/20/18 at 10:00 Heparin Sodium (Porcine) (Heparin (1000 Units/ml)) 1,500 unit WITH DIALYSIS HE Last administered on 11/01/18 18:16; Admin Dose 1,500 UNIT; Start 10/20/18 at 10:00 Ondansetron HCl (Zofran Tab) 4 mg Q6H PRN PO NAUSEA AND/OR VOMITING; Start 10/20/18 at 17:30 Epoetin Jero-epbx (Retacrit (Esrd)) 10,000 unit MoWeFr@1700 SC Last administered on 10/31/18 17:53; Admin Dose 10,000 UNIT; Start 10/24/18 at 17:00 Guaifenesin/ Dextromethorphan (Robitussin Dm Liquid Cup) 10 ml Q4H PRN PO cough Last administered on 10/25/18 15:49; Admin Dose 10 ML; Start 10/24/18 at 11:00 Alteplase, Recombinant (Cathflo (Activase)) 4 mg MAY REPEAT X1 PRN CATHETER IF CATHETER REMAINS OCCULUDED Last administered on 11/01/18 20:44; Admin Dose 4 MG; Start 10/29/18 at 14:00 Apixaban (Eliquis) 2.5 mg BID PO Last administered on 11/02/18 08:27; Admin Dose 2.5 MG; Start 10/31/18 at 21:00 Insulin Aspart (Novolog Insulin Pen) 7 unit WITH MEALS SC Last administered on 11/02/18 13:51; Admin Dose 7 UNIT; Start 11/01/18 at 11:50 Insulin Glargine (Lantus) 21 units DAILY@0830 SC Last administered on 11/02/18 08:59; Admin Dose 21 UNITS; Start 11/02/18 at 08:30 RAQUEL MCDOWELL MD Nov 02, 2018 16:53
--- NOTE | 2018-11-02 18:53 | PN ---
Date/Time of Note Date/Time of Note DATE: 11/02/18 TIME: 18:49 Assessment/Plan VTE Prophylaxis Risk score (from Ns)>0 risk: 15 SCD applied (from Ns): No SCD contraindicated: low risk/ambulating Pharmacological prophylaxis: LMWH Lines/Catheters IV [facility]from [facility] Mid Line Urinary Cath still in place: No Assessment/Plan Hospital Course Hospitalist coverage/hospital course -Highly complicated and lengthy hospital stay for multiple comorbidities. Initially admitted with symptomatic anemia underwent EGD found to have anastomotic ulcer. Colonoscopy deferred due to his next comorbidity which was an NSTEMI. Underwent cath found to have multivessel disease. Underwent CABG next. Next managed for acute cholecystitis. Treatment was conservative due to his comorbidities. During his hospital stay, we additionally had issues with PAD. He is being treated conservatively. During his hospital stay we additionally had issues with his dialysis access. We tried right groin, then IJ, and now he presently has left lower extremity access. He has Central Stenosis, and we are presently looking for Tertiary assistance. Addendum: Saturday: Awaiting tertiary placement. I updated family regarding his comorbidities and his need for dialysis access and then therapy may be SNF. I addressed his apathy/frustration additionally. I asked them to remain optimistic however he does have multiple comorbidities and requires extensive follow-ups. Assessment and plan 1. Symptomatic anemia; sp. EGD showing an anastomotic ulcer. Colonoscopy deferred. Stable, transfer to Tertiary when bed available. 2. H/o Billroth II surgery 3. ESRD stable cont HD. Needs Tertiary/ [facility] assistance for access 4. Dm 5. Morbid obesity 6. DVT PE status 7. Chronic type II arrhythmia [place] 8. PAD, chronic/ bilat. h/o Angio 08/12; lt 3rd digit ulcer/ Dry gangrene. Unfortunately, progressive with its first and second digit dz; recomm is conservative mngmnt. Amputation prn 9. NSTEMI status post cath 10. CAD/ multivessel dz, status post CABG 11. Acute cholecystitis, finish antibiotics. Not a candidate for cholecy stectomy 12. A. fib/flutter continue rate control and long-term anticoagulation 13. Central occlusion sp common femoral PermCath for now. Failed left AV graft, rt Madi, and rt IJ; [facility] transfer pending 14. Failure to thrive; snf vs Subjective: No chest pain dyspnea. Appetite about 50%. Objective: Vital signs stable Physical exam No pallor JVD Regular murmur but no rub no gallop Clear; chest incision intact clean Bs present nontender nondistended no RRG No edema; left toe gangrene noted Result Diagram: 11/02/18 0550 11/02/18 1041 Results 24hrs Laboratory Tests Test 11/01/18 20:44 11/02/18 05:50 11/02/18 08:25 11/02/18 10:41 Bedside Glucose 94 173 White Blood Count 12.4 H Red Blood Count 3.40 L Hemoglobin 8.8 L Hematocrit 29.7 L Mean Corpuscular Volume 87.4 Mean Corpuscular 25.9 L Hemoglobin Mean Corpuscular 29.6 L Hemoglobin Concent Red Cell Distribution 17.4 H Width Platelet Count 358 Mean Platelet Volume 10.2 Immature Granulocytes % 0.700 H Neutrophils % 80.8 H Lymphocytes % 10.0 L Monocytes % 7.6 Eosinophils % 0.6 Basophils % 0.3 Nucleated Red Blood 0.0 Cells % Immature Granulocytes # 0.090 H Neutrophils # 10.0 H Lymphocytes # 1.2 Monocytes # 0.9 Eosinophils # 0.1 Basophils # 0.0 Nucleated Red Blood 0.0 Cells # Sodium Level 135 Potassium Level 4.4 Chloride Level 96 L Carbon Dioxide Level 22 Anion Gap 17 H Blood Urea Nitrogen 60 H Creatinine 7.12 H Est Glomerular Filtrat 8 L Rate mL/min Glucose Level 186 Calcium Level 7.7 L Test 11/02/18 12:01 11/02/18 17:35 Bedside Glucose 166 148 Exam/Review of Systems Exam Vitals Vital Signs Date Temp Pulse Resp B/P (MAP) Pulse Ox O2 O2 Flow FiO2 Time Delivery Rate 11/02/18 80 16:03 11/02/18 98.0 20 108/50 97 15:11 (69) 11/02/18 2.0 28 13:13 11/02/18 Nasal 12:52 Cannula Intake and Output 11/01/18 11/01/18 11/02/18 1414:59 22:59 06:59 IntakeIntake Total 150 ml OutputOutput Total 2500 ml BalanceBalance -2500 ml 150 ml Results Results 24hrs Laboratory Tests Test 11/01/18 20:44 11/02/18 05:50 11/02/18 08:25 6/9/19 10:41 Bedside Glucose 94 173 White Blood Count 12.4 H Red Blood Count 3.40 L Hemoglobin 8.8 L Hematocrit 29.7 L Mean Corpuscular Volume 87.4 Mean Corpuscular 25.9 L Hemoglobin Mean Corpuscular 29.6 L Hemoglobin Concent Red Cell Distribution 17.4 H Width Platelet Count 358 Mean Platelet Volume 10.2 Immature Granulocytes % 0.700 H Neutrophils % 80.8 H Lymphocytes % 10.0 L Monocytes % 7.6 Eosinophils % 0.6 Basophils % 0.3 Nucleated Red Blood 0.0 Cells % Immature Granulocytes # 0.090 H Neutrophils # 10.0 H Lymphocytes # 1.2 Monocytes # 0.9 Eosinophils # 0.1 Basophils # 0.0 Nucleated Red Blood 0.0 Cells # Sodium Level 135 Potassium Level 4.4 Chloride Level 96 L Carbon Dioxide Level 22 Anion Gap 17 H Blood Urea Nitrogen 60 H Creatinine 7.12 H Est Glomerular Filtrat 8 L Rate mL/min Glucose Level 186 Calcium Level 7.7 L Test 11/02/18 12:01 11/02/18 17:35 Bedside Glucose 166 148 Medications Medication Current Medications Oxycodone/ Acetaminophen (Percocet (5/ 325)) 1 tab Q3H PRN PO PAIN LEVEL 1-5 Last administered on 11/01/18 01:19; Admin Dose 1 TAB; Start 10/07/18 at 21:00 Ondansetron HCl (Zofran Inj) 4 mg Q6H PRN IV NAUSEA AND/OR VOMITING Last administered on 10/21/18 12:10; Admin Dose 4 MG; Start 10/07/18 at 21:00 Famotidine (Pepcid) 20 mg BID PO Last administered on 11/02/18 08:28; Admin Dose 20 MG; Start 10/08/18 at 21:00 Acetaminophen (Tylenol Tab) 650 mg Q3H PRN PO ELEVATED TEMPERATURE Last administered on 11/01/18 04:02; Admin Dose 650 MG; Start 10/07/18 at 21:00 Atorvastatin Calcium (Lipitor) 40 mg HS PO Last administered on 11/01/18 21:50; Admin Dose 40 MG; Start 10/08/18 at 21:00 Insulin Aspart (Novolog Insulin Pen) NOVOLOG *MODERATE* ALGORITHM WITH MEALS BEDTIME SC Last administered on 11/02/18 18:25; Admin Dose 2 UNIT; Start 10/09/18 at 11:30 Glucose (Glutose) 15 gm Q15M PRN PO DECREASED GLUCOSE; Start 10/09/18 at 12:00 Glucose (Glutose) 22.5 gm Q15M PRN PO DECREASED GLUCOSE; Start 10/09/18 at 1 2:00 Dextrose (D50w Syringe) 25 ml Q15M PRN IV DECREASED GLUCOSE; Start 10/09/18 at 12:00 Dextrose (D50w Syringe) 50 ml Q15M PRN IV DECREASED GLUCOSE; Start 10/09/18 at 12:00 Glucagon (Glucagen) 1 mg Q15M PRN IM DECREASED GLUCOSE; Start 10/09/18 at 12:00 Glucose (Glutose) 15 gm Q15M PRN BUCCAL DECREASED GLUCOSE Last administered on 10/20/18 18:52; Admin Dose 15 GM; Start 10/09/18 at 12:00 Diagnostic Test (Pha) (Accu-Chek) 1 ea AC MEALS AND BEDTIME XX Last administered on 11/02/18 17:35; Admin Dose 1 EA; Start 10/09/18 at 11:00 Aspirin (Aspirin) 81 mg DAILY PO Last administered on 11/02/18 08:28; Admin Dose 81 MG; Start 10/13/18 at 09:00 Albumin Human 100 ml @ 100 mls/hr DURING DIALYSIS PRN IV BLOOD PRESSURE SUPPORT Last administered on 11/01/18 18:32; Admin Dose 100 MLS/HR; Start 10/13/18 at 11:30 Magnesium Hydroxide (Milk Of Mag) 30 ml DAILY PRN PO CONSTIPATION; Start 10/16/18 at 06:30 Furosemide (Lasix) 40 mg DAILY PO Last administered on 11/02/18 08:27; Admin Dose 40 MG; Start 10/20/18 at 09:00 Heparin Sodium (Porcine) (Heparin (1000 Units/ml)) 500 unit WITH DIALYSIS HE Last administered on 10/31/18 10:21; Admin Dose 500 UNIT; Start 10/20/18 at 10:00 Heparin Sodium (Porcine) (Heparin (1000 Units/ml)) 1,500 unit WITH DIALYSIS HE Last administered on 11/01/18 18:16; Admin Dose 1,500 UNIT; Start 10/20/18 at 10:00 Ondansetron HCl (Zofran Tab) 4 mg Q6H PRN PO NAUSEA AND/OR VOMITING; Start 10/20/18 at 17:30 Epoetin Jero-epbx (Retacrit (Esrd)) 10,000 unit MoWeFr@1700 SC Last administered on 10/31/18 17:53; Admin Dose 10,000 UNIT; Start 10/24/18 at 17:00 Guaifenesin/ Dextromethorphan (Robitussin Dm Liquid Cup) 10 ml Q4H PRN PO cough Last administered on 10/25/18 15:49; Admin Dose 10 ML; Start 10/24/18 at 11:00 Alteplase, Recombinant (Cathflo (Activase)) 4 mg MAY REPEAT X1 PRN CATHETER IF CATHETER REMAINS OCCULUDED Last administered on 11/01/18 20:44; Admin Dose 4 MG; Start 10/29/18 at 14:00 Apixaban (Eliquis) 2.5 mg BID PO Last administered on 11/02/18 08:27; Admin Dose 2.5 MG; Start 10/31/18 at 21:00 Insulin Aspart (Novolog Insulin Pen) 7 unit WITH MEALS SC Last administered on 11/02/18 18:25; Admin Dose 7 UNIT; Start 11/01/18 at 11:50 Insulin Glargine (Lantus) 21 units DAILY@0830 SC Last administered on 11/02/18 08:59; Admin Dose 21 UNITS; Start 11/02/18 at 08:30 RODRÍGUEZ MOORE MD Nov 02, 2018 18:53
[2018-11-02] MEDS: LACTOBACILLUS RHAMNOSUS CAP PO SCH (20:15)
[2018-11-02] MEDS: ATORVASTATIN 40 MG TAB PO SCH (20:15)
[2018-11-02] MEDS: OXYCODONE/ACETAMINOPHEN (5/325) TAB PO PRN (20:45)
[2018-11-03] VITALS (25 sets, daily range): BP systolic 90–121; BP diastolic 30–56; PULSE 60–108; RESP 16–20
[2018-11-03] MEDS: ACCU-CHEK XX SCH ×4 (08:09→20:09)
[2018-11-03] MEDS: ESCITALOPRAM 10 MG TAB PO SCH (08:15)
[2018-11-03] MEDS: LACTOBACILLUS RHAMNOSUS CAP PO SCH ×2 (08:15→20:04)
[2018-11-03] MEDS: FAMOTIDINE 20 MG TAB PO SCH (08:16)
[2018-11-03] MEDS: ASPIRIN 81 MG TAB PO SCH (08:16)
[2018-11-03] MEDS: APIXABAN 5 MG TABLET PO SCH ×2 (08:16→20:04)
[2018-11-03] MEDS: FUROSEMIDE 40 MG TAB PO SCH ×2 (08:16→09:00)
[2018-11-03] MEDS: INSULIN GLARGINE [LANTus] (100 UNITS/ML) SYG SC SCH (08:18)
[2018-11-03] MEDS: INSULIN ASPART [NOVOLOG] 3 ML PEN SC SCH ×7 (08:19→20:08)
[2018-11-03] MEDS: BALSAM PERU/CASTOR OIL 60 GM TUBE TOP SCH (09:00)
--- NOTE | 2018-11-03 10:33 | CONS ---
Assessment/Plan Assessment/Plan Hospital Course (Demo Recall) Afib/flutter: new onset, rates controlled. Now on Eliquis Cholecystitis: started on antibiotics. Seen on CT. No symptoms or exam findings CAD s/p CABG: CABG x4 10/07/18, ÁLVAREZ to LAD, SVG to ramus, SVG to OM1 sequenced to OM2. Doing well. Extubated 10/08, off pressors NSTEMI: Trop peak 1.1 and trended down. S/p cath 09/30/18 with diffuse multivessel CAD. CABG as above Upper GI bleed: due to anastomotic ulcer seen on EGD 09/26. No bleeding since. Hgb relatively stable. Anemia: due to above. s/p 5 units PRBCs and 2 units intraop. [place]: Kaylee 1. Not on BB. No pauses or high grade block. 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 Unable to place right IJ. Now s/p left femoral permacath 10/24 which clotted but started to work again HTN H/o Billroth Depression: now on meds -awaiting transfer to [facility] -Eliquis 2.5mg BID per nephrology -antibiotics -ASA 81mg -continue to hold metoprolol as pt has bradycardia -lipitor 40mg -lasix 40mg PO -HD per nephrology Consultation Date/Type/Reason Admit Date/Time September 24, 2018 at 08:08 Initial Consult Date 09/24/18 Type of Consult Cardiology Date/Time of Note DATE: 11/03/18 TIME: 10:31 24 HR Interval Summary Free Text/Dictation No events. Still waiting for transfer. Sitting in chair and willing to have a conversation today Exam/Review of Systems Vital Signs Vitals Vital Signs Date Temp Pulse Resp B/P (MAP) Pulse Ox O2 O2 Flow FiO2 Time Delivery Rate 11/03/18 108 09:30 11/03/18 Nasal 2.0 07:36 Cannula 11/03/18 98.3 20 115/53 99 07:08 (73) 11/03/18 27 02:36 Intake and Output 11/02/18 11/02/18 11/03/18 1515:00 23:00 07:00 IntakeIntake Total 950 ml 150 ml OutputOutput Total 950 ml BalanceBalance 0 ml 150 ml Exam Constitutional: alert, oriented Psych: no complaints; No nl mood/affect Cardiovascular: regular rate and rhythm; No edema Gastrointestinal: soft, non-tender 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: nl mental status, nl speech Labs Result Diagram: 11/03/18 0731 11/03/18 0535 Results 24hrs Laboratory Tests Test 11/02/18 10:41 11/02/18 12:01 11/02/18 17:35 11/02/18 20:14 Sodium Level 135 Potassium Level 4.4 Chloride Level 96 L Carbon Dioxide Level 22 Anion Gap 17 H Blood Urea Nitrogen 60 H Creatinine 7.12 H Est Glomerular 8 L Filtrat Rate mL/min Glucose Level 186 Calcium Level 7.7 L Bedside Glucose 166 148 139 Test 11/03/18 05:35 11/03/18 07:31 11/03/18 08:04 Sodium Level 132 L Potassium Level 4.9 Chloride Level 96 L Carbon Dioxide Level 16 L Anion Gap 20 H Blood Urea Nitrogen 75 H Creatinine 8.55 H Est Glomerular 6 L Filtrat Rate mL/min Glucose Level 165 Calcium Level 7.6 L Magnesium Level 2.1 Total Bilirubin 0.5 Direct Bilirubin 0.00 Indirect Bilirubin 0.5 Aspartate Amino 40 Transf (AST/SGOT) Alanine 14 Aminotransferase (ALT /SGPT) Alkaline Phosphatase 172 H Total Protein 8.5 H Albumin 3.5 Globulin 5.00 H Albumin/Globulin 0.70 Ratio White Blood Count 15.5 #H Red Blood Count 3.40 L Hemoglobin 8.8 L Hematocrit 29.0 L Mean Corpuscular 85.3 Volume Mean Corpuscular 25.9 L Hemoglobin Mean Corpuscular 30.3 L Hemoglobin Concent Red Cell Distribution 17.4 H Width Platelet Count 385 Mean Platelet Volume 10.2 Immature Granulocytes 0.700 H % Neutrophils % 79.9 H Lymphocytes % 12.2 L Monocytes % 6.2 Eosinophils % 0.7 Basophils % 0.3 Nucleated Red Blood 0.0 Cells % Immature Granulocytes 0.110 H # Neutrophils # 12.4 H Lymphocytes # 1.9 Monocytes # 1.0 H Eosinophils # 0.1 Basophils # 0.1 Nucleated Red Blood 0.0 Cells # Bedside Glucose 211 Medications Medications Current Medications Oxycodone/ Acetaminophen (Percocet ( 325)) 1 tab Q3H PRN PO PAIN LEVEL 1-5 Last administered on 11/02/18 20:45; Admin Dose 1 TAB; Start 10/07/18 at 21:00 Ondansetron HCl (Zofran Inj) 4 mg Q6H PRN IV NAUSEA AND/OR VOMITING Last administered on 10/21/18 12:10; Admin Dose 4 MG; Start 10/07/18 at 21:00 Acetaminophen (Tylenol Tab) 650 mg Q3H PRN PO ELEVATED TEMPERATURE Last admin istered on 11/01/18 04:02; Admin Dose 650 MG; Start 10/07/18 at 21:00 Atorvastatin Calcium (Lipitor) 40 mg HS PO Last administered on 11/02/18 20:15; Admin Dose 40 MG; Start 10/08/18 at 21:00 Insulin Aspart (Novolog Insulin Pen) NOVOLOG *MODERATE* ALGORITHM WITH MEALS BEDTIME SC Last administered on 11/03/18 08:19; Admin Dose 4 UNIT; Start 10/09/18 at 11:30 Glucose (Glutose) 15 gm Q15M PRN PO DECREASED GLUCOSE; Start 10/09/18 at 12:00 Glucose (Glutose) 22.5 gm Q15M PRN PO DECREASED GLUCOSE; Start 10/09/18 at 12:00 Dextrose (D50w Syringe) 25 ml Q15M PRN IV DECREASED GLUCOSE; Start 10/09/18 at 12:00 Dextrose (D50w Syringe) 50 ml Q15M PRN IV DECREASED GLUCOSE; Start 10/09/18 at 12:00 Glucagon (Glucagen) 1 mg Q15M PRN IM DECREASED GLUCOSE; Start 10/09/18 at 12:00 Glucose (Glutose) 15 gm Q15M PRN BUCCAL DECREASED GLUCOSE Last administered on 10/20/18 18:52; Admin Dose 15 GM; Start 10/09/18 at 12:00 Diagnostic Test (Pha) (Accu-Chek) 1 ea AC MEALS AND BEDTIME XX Last administered on 11/03/18 08:09; Admin Dose 1 EA; Start 10/09/18 at 11:00 Aspirin (Aspirin) 81 mg DAILY PO Last administered on 11/03/18 08:16; Admin Dose 81 MG; Start 10/13/18 at 09:00 Albumin Human 100 ml @ 100 mls/hr DURING DIALYSIS PRN IV BLOOD PRESSURE SUPPORT Last administered on 11/01/18 18:32; Admin Dose 100 MLS/HR; Start 10/13/18 at 11:30 Magnesium Hydroxide (Milk Of Mag) 30 ml DAILY PRN PO CONSTIPATION; Start 10/16/18 at 06:30 Furosemide (Lasix) 40 mg DAILY PO Last administered on 11/03/18 08:16; Admin Dose 40 MG; Start 10/20/18 at 09:00 Heparin Sodium (Porcine) (Heparin (1000 Units/ml)) 500 unit WITH DIALYSIS HE Last administered on 10/31/18 10:21; Admin Dose 500 UNIT; Start 10/20/18 at 10:00 Heparin Sodium (Porcine) (Heparin (1000 Units/ml)) 1,500 unit WITH DIALYSIS HE Last administered on 11/01/18 18:16; Admin Dose 1,500 UNIT; Start 10/20/18 at 10:00 Ondansetron HCl (Zofran Tab) 4 mg Q6H PRN PO NAUSEA AND/OR VOMITING; Start 10/20/18 at 17:30 Epoetin Jero-epbx (Retacrit (Esrd)) 10,000 unit MoWeFr@1700 SC Last administered on 10/31/18 17:53; Admin Dose 10,000 UNIT; Start 10/24/18 at 17:00 Guaifenesin/ Dextromethorphan (Robitussin Dm Liquid Cup) 10 ml Q4H PRN PO cough Last administered on 10/25/18 15:49; Admin Dose 10 ML; Start 10/24/18 at 11:00 Alteplase, Recombinant (Cathflo (Activase)) 4 mg MAY REPEAT X1 PRN CATHETER IF CATHETER REMAINS OCCULUDED Last administered on 11/01/18 20:44; Admin Dose 4 MG; Start 10/29/18 at 14:00 Apixaban (Eliquis) 2.5 mg BID PO Last administered on 11/03/18 08:16; Admin Dose 2.5 MG; Start 10/31/18 at 21:00 Insulin Aspart (Novolog Insulin Pen) 7 unit WITH MEALS SC Last administered on 11/03/18 08:19; Admin Dose 7 UNIT; Start 11/01/18 at 11:50 Insulin Glargine (Lantus) 21 units DAILY@0830 SC Last administered on 11/03/18 08:18; Admin Dose 21 UNITS; Start 11/02/18 at 08:30 Famotidine (Pepcid) 10 mg DAILY PO Last administered on 11/03/18at 08:16; Admin Dose 10 MG; Start 11/03/18 at 09:00 Lactobacillus Acidophilus/ Rhamnosus (Culturelle) 1 cap BID PO Last administered on 11/03/18 08:15; Admin Dose 1 CAP; Start 11/02/18 at 21:00 Escitalopram Oxalate (Lexapro) 5 mg DAILY PO Last administered on 11/03/18 08:15; Admin Dose 5 MG; Start 11/03/18 at 09:00 LAVON SEE Nov 03, 2018 10:33
--- NOTE | 2018-11-03 11:29 | CONS ---
Assessment/Plan Assessment/Plan Assessment/Plan (Daily) 1. acute Hyperkalemia due to GI bleeding- resolved 2.Acute fluid overload- now resolved 3. acute GI bleeding causing acute blood loss anemia- S/p Status post EGD/colonoscopy 09/27/19 -Anastomosis ulcer -Normal colonoscopy 4. Severe Anemia with Hb 5.8 on admission s/p 5 U PRBC transfusion for GI ble eding during this admission - pt also has anemia of ESRD 5. H/O HTN 6. H/O peripherla vascular disease 7. ESRD on HD -follow [facility] for [facility] HD on MWF 8. 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 Unable to place right IJ by IR due to central stenosis. Now s/p left femoral permacath 10/24 but still intermittently getting clotted- Discussed with Dr. Velasco - Recommended for higher level of care for diffficult HD access, will need IR or vascular surgery at [facility] center to address HD access establishment due to IVC thrombosis and Central stenosis s/p HD yesterday 2 L removed , continue Eliquis 2.5 mg PO BID ,s/p HD today 1 L removed, and then we will keep pt on MWF schedule d/c lasix due to low BP Epogen 61796 units SQ MWF will follow up Consultation Date/Type/Reason Admit Date/Time September 24, 2018 at 08:08 Initial Consult Date 09/24/18 Type of Consult NEPHROLOGY Date/Time of Note DATE: 11/03/18 TIME: 11:29 Exam/Review of Systems Exam Vitals Vital Signs Date Temp Pulse Resp B/P (MAP) Pulse Ox O2 O2 Flow FiO2 Time Delivery Rate 11/03/18 108 09:30 11/03/18 Nasal 2.0 07:36 Cannula 11/03/18 98.3 20 115/53 99 07:08 (73) 11/03/18 27 02:36 Intake and Output 11/02/18 11/02/18 11/03/18 1515:00 23:00 07:00 IntakeIntake Total 950 ml 150 ml OutputOutput Total 950 ml BalanceBalance 0 ml 150 ml Results Result Diagram: 11/03/18 0731 11/03/18 0535 Results 24hrs Laboratory Tests Test 11/02/18 12:01 11/02/18 17:35 11/02/18 20:14 11/03/18 05:35 Bedside Glucose 166 148 139 Sodium Level 132 L Potassium Level 4.9 Chloride Level 96 L Carbon Dioxide Level 16 L Anion Gap 20 H Blood Urea Nitrogen 75 H Creatinine 8.55 H Est Glomerular 6 L Filtrat Rate mL/min Glucose Level 165 Calcium Level 7.6 L Magnesium Level 2.1 Total Bilirubin 0.5 Direct Bilirubin 0.00 Indirect Bilirubin 0.5 Aspartate Amino 40 Transf (AST/SGOT) Alanine 14 Aminotransferase (ALT /SGPT) Alkaline Phosphatase 172 H Total Protein 8.5 H Albumin 3.5 Globulin 5.00 H Albumin/Globulin 0.70 Ratio Test 11/03/18 07:31 11/03/18 08:04 White Blood Count 15.5 #H Red Blood Count 3.40 L Hemoglobin 8.8 L Hematocrit 29.0 L Mean Corpuscular 85.3 Volume Mean Corpuscular 25.9 L Hemoglobin Mean Corpuscular 30.3 L Hemoglobin Concent Red Cell Distribution 17.4 H Width Platelet Count 385 Mean Platelet Volume 10.2 Immature Granulocytes 0.700 H % Neutrophils % 79.9 H Lymphocytes % 12.2 L Monocytes % 6.2 Eosinophils % 0.7 Basophils % 0.3 Nucleated Red Blood 0.0 Cells % Immature Granulocytes 0.110 H # Neutrophils # 12.4 H Lymphocytes # 1.9 Monocytes # 1.0 H Eosinophils # 0.1 Basophils # 0.1 Nucleated Red Blood 0.0 Cells # Bedside Glucose 211 Medications Medication Current Medications Oxycodone/ Acetaminophen (Percocet (5/ 325)) 1 tab Q3H PRN PO PAIN LEVEL 1-5 Last administered on 11/02/18at 20:45; Admin Dose 1 TAB; Start 10/07/18 at 21:00 Ondansetron HCl (Zofran Inj) 4 mg Q6H PRN IV NAUSEA AND/OR VOMITING Last administered on 10/21/18at 12:10; Admin Dose 4 MG; Start 10/07/18 at 21:00 Acetaminophen (Tylenol Tab) 650 mg Q3H PRN PO ELEVATED TEMPERATURE Last administered on 11/01/18at 04:02; Admin Dose 650 MG; Start 10/07/18 at 21:00 Atorvastatin Calcium (Lipitor) 40 mg HS PO Last administered on 11/02/18 20:15; Admin Dose 40 MG; Start 10/08/18 at 21:00 Insulin Aspart (Novolog Insulin Pen) NOVOLOG *MODERATE* ALGORITHM WITH MEALS BEDTIME SC Last administered on 11/03/18 08:19; Admin Dose 4 UNIT; Start 10/09/18 at 11:30 Glucose (Glutose) 15 gm Q15M PRN PO DECREASED GLUCOSE; Start 10/09/18 at 12:00 Glucose (Glutose) 22.5 gm Q15M PRN PO DECREASED GLUCOSE; Start 10/09/18 at 12:00 Dextrose (D50w Syringe) 25 ml Q15M PRN IV DECREASED GLUCOSE; Start 10/09/18 at 12:00 Dextrose (D50w Syringe) 50 ml Q15M PRN IV DECREASED GLUCOSE; Start 10/09/18 at 12:00 Glucagon (Glucagen) 1 mg Q15M PRN IM DECREASED GLUCOSE; Start 10/09/18 at 12:00 Glucose (Glutose) 15 gm Q15M PRN BUCCAL DECREASED GLUCOSE Last administered on 10/20/18at 18:52; Admin Dose 15 GM; Start 10/09/18 at 12:00 Diagnostic Test (Pha) (Accu-Chek) 1 ea AC MEALS AND BEDTIME XX Last administered on 11/03/18 08:09; Admin Dose 1 EA; Start 10/09/18 at 11:00 Aspirin (Aspirin) 81 mg DAILY PO Last administered on 11/03/18 08:16; Admin Dose 81 MG; Start 10/13/18 at 09:00 Albumin Human 100 ml @ 100 mls/hr DURING DIALYSIS PRN IV BLOOD PRESSURE SUPPORT Last administered on 11/01/18 18:32; Admin Dose 100 MLS/HR; Start 10/13/18 at 11:30 Magnesium Hydroxide (Milk Of Mag) 30 ml DAILY PRN PO CONSTIPATION; Start 10/16/18 at 06:30 Furosemide (Lasix) 40 mg DAILY PO Last administered on 11/03/18 08:16; Admin Dose 40 MG; Start 10/20/18 at 09:00 Heparin Sodium (Porcine) (Heparin (1000 Units/ml)) 500 unit WITH DIALYSIS HE Last administered on 10/31/18 10:21; Admin Dose 500 UNIT; Start 10/20/18 at 10:00 Heparin Sodium (Porcine) (Heparin (1000 Units/ml)) 1,500 unit WITH DIALYSIS HE Last administered on 11/01/18 18:16; Admin Dose 1,500 UNIT; Start 10/20/18 at 10:00 Ondansetron HCl (Zofran Tab) 4 mg Q6H PRN PO NAUSEA AND/OR VOMITING; Start 10/20/18 at 17:30 Epoetin Jero-epbx (Retacrit (Esrd)) 10,000 unit MoWeFr@1700 SC Last administered on 10/31/18 17:53; Admin Dose 10,000 UNIT; Start 10/24/18 at 17:00 Guaifenesin/ Dextromethorphan (Robitussin Dm Liquid Cup) 10 ml Q4H PRN PO cough Last administered on 10/25/18 15:49; Admin Dose 10 ML; Start 10/24/18 at 11:00 Alteplase, Recombinant (Cathflo (Activase)) 4 mg MAY REPEAT X1 PRN CATHETER IF CATHETER REMAINS OCCULUDED Last administered on 11/01/18 20:44; Admin Dose 4 MG; Start 10/29/18 at 14:00 Apixaban (Eliquis) 2.5 mg BID PO Last administered on 11/03/18 08:16; Admin Dose 2.5 MG; Start 10/31/18 at 21:00 Insulin Aspart (Novolog Insulin Pen) 7 unit WITH MEALS SC Last administered on 11/03/18 08:19; Admin Dose 7 UNIT; Start 11/01/18 at 11:50 Insulin Glargine (Lantus) 21 units DAILY@0830 SC Last administered on 11/03/18 08:18; Admin Dose 21 UNITS; Start 11/02/18 at 08:30 Famotidine (Pepcid) 10 mg DAILY PO Last administered on 11/03/18 08:16; Admin Dose 10 MG; Start 11/03/18 at 09:00 Lactobacillus Acidophilus/ Rhamnosus (Culturelle) 1 cap BID PO Last administered on 11/03/18 08:15; Admin Dose 1 CAP; Start 11/02/18 at 21:00 Escitalopram Oxalate (Lexapro) 5 mg DAILY PO Last administered on 11/03/18at 08:15; Admin Dose 5 MG; Start 11/03/18 at 09:00 RAQUEL MCDOWELL MD Nov 03, 2018 11:29
[2018-11-03] MEDS: HEPARIN 1000 UNITS/ML 10 ML INJ HE SCH ×2 (13:18→13:19)
--- NOTE | 2018-11-03 15:02 | PN ---
Date/Time of Note Date/Time of Note DATE: 11/03/18 TIME: 14:59 Assessment/Plan VTE Prophylaxis Risk score (from Nsg)>0 risk: 16 SCD applied (from Ns): Yes Pharmacological prophylaxis: heparin, apixaban Lines/Catheters IV Catheter Type (from Nrsg): Mid Line Urinary Cath still in place: No Assessment/Plan Hospital Course Alert, no distress AOx3 RRR Breathing comfortably No RUQ pain, soft nt nd no edema, venous stasis Gangrenous toes 67 yo with numerous comorbidities including dyslipidemia, IDDM, ESRD on HD and severe PVD who is also anticoagulated on Eliquis/Plavix,here with worsening malaise. Subsequently underwent CABG for severe CAD. HD has been complicated by issues with difficult access as he has extensive venous clots. Permacath placed here no longer functions. Per vascluar surgery, he will require transfer to tertiary center to see if access can be placed. For now has femoral line Cholecystitis: - Symptoms much better. s/p abx ESRD: - HD per renal via femoral access IVC clot: - Eliquis NSTEMI/Multivessel coronary artery disease - s/p LHC 09/30 - s/p CABG 10/07 - Cautiously resume beta blockers. - Anticoag, antiplatelet per CT surgery - Continue statin. Severe acute symptomatic blood loss anemia -Improved with multiple transfusion. 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 -Wound care #Obesity with BMI 36.3 -Weight reduction advised. #Anemia of ESRD -on Epogen with hemodialysis #Debility secondary to comorbidities -Continue PT -ARU eval #Depression -Started Paxil DVT prophylaxis: SCDs PUD prophylaxis: Protonix DC planning: To tertiary center for vascular access Result Diagram: 11/03/18 0731 11/03/18 0535 Results 24hrs Laboratory Tests Test 11/02/18 17:35 11/02/18 20:14 11/03/18 05:35 11/03/18 07:31 Bedside Glucose 148 139 Sodium Level 132 L Potassium Level 4.9 Chloride Level 96 L Carbon Dioxide Level 16 L Anion Gap 20 H Blood Urea Nitrogen 75 H Creatinine 8.55 H Est Glomerular 6 L Filtrat Rate mL/min Glucose Level 165 Calcium Level 7.6 L Magnesium Level 2.1 Total Bilirubin 0.5 Direct Bilirubin 0.00 Indirect Bilirubin 0.5 Aspartate Amino 40 Transf (AST/SGOT) Alanine 14 Aminotransferase (AL T/SGPT) Alkaline Phosphatase 172 H Total Protein 8.5 H Albumin 3.5 Globulin 5.00 H Albumin/Globulin 0.70 Ratio White Blood Count 15.5 #H Red Blood Count 3.40 L Hemoglobin 8.8 L Hematocrit 29.0 L Mean Corpuscular 85.3 Volume Mean Corpuscular 25.9 L Hemoglobin Mean Corpuscular 30.3 L Hemoglobin Concent Red Cell 17.4 H Distribution Width Platelet Count 385 Mean Platelet Volume 10.2 Immature 0.700 H Granulocytes % Neutrophils % 79.9 H Lymphocytes % 12.2 L Monocytes % 6.2 Eosinophils % 0.7 Basophils % 0.3 Nucleated Red Blood 0.0 Cells % Immature 0.110 H Granulocytes # Neutrophils # 12.4 H Lymphocytes # 1.9 Monocytes # 1.0 H Eosinophils # 0.1 Basophils # 0.1 Nucleated Red Blood 0.0 Cells # Test 11/03/18 08:04 11/03/18 11:40 Bedside Glucose 211 200 Subjective 24 Hr Interval Summary Free Text/Dictation Doing well Comfortable Exam/Review of Systems Exam Vitals Vital Signs Date Temp Pulse Resp B/P (MAP) Pulse Ox O2 O2 Flow FiO2 Time Delivery Rate 11/03/18 82 18 92/56 (68) 98 Nasal 4.0 13:15 Cannula 11/03/18 98.3 11:53 11/03/18 27 02:36 Intake and Output 11/02/18 11/02/18 11/03/18 1515:00 23:00 07:00 IntakeIntake Total 950 ml 150 ml OutputOutput Total 950 ml BalanceBalance 0 ml 150 ml Results Results 24hrs Laboratory Tests Test 11/02/18 17:35 11/02/18 20:14 11/03/18 05:35 11/03/18 07:31 Bedside Glucose 148 139 Sodium Level 132 L Potassium Level 4.9 Chloride Level 96 L Carbon Dioxide Level 16 L Anion Gap 20 H Blood Urea Nitrogen 75 H Creatinine 8.55 H Est Glomerular 6 L Filtrat Rate mL/min Glucose Level 165 Calcium Level 7.6 L Magnesium Level 2.1 Total Bilirubin 0.5 Direct Bilirubin 0.00 Indirect Bilirubin 0.5 Aspartate Amino 40 Transf (AST/SGOT) Alanine 14 Aminotransferase (AL T/SGPT) Alkaline Phosphatase 172 H Total Protein 8.5 H Albumin 3.5 Globulin 5.00 H Albumin/Globulin 0.70 Ratio White Blood Count 15.5 #H Red Blood Count 3.40 L Hemoglobin 8.8 L Hematocrit 29.0 L Mean Corpuscular 85.3 Volume Mean Corpuscular 25.9 L Hemoglobin Mean Corpuscular 30.3 L Hemoglobin Concent Red Cell 17.4 H Distribution Width Platelet Count 385 Mean Platelet Volume 10.2 Immature 0.700 H Granulocytes % Neutrophils % 79.9 H Lymphocytes % 12.2 L Monocytes % 6.2 Eosinophils % 0.7 Basophils % 0.3 Nucleated Red Blood 0.0 Cells % Immature 0.110 H Granulocytes # Neutrophils # 12.4 H Lymphocytes # 1.9 Monocytes # 1.0 H Eosinophils # 0.1 Basophils # 0.1 Nucleated Red Blood 0.0 Cells # Test 11/03/18 08:04 11/03/18 11:40 Bedside Glucose 211 200 Medications Medication Current Medications Oxycodone/ Acetaminophen (Percocet (5/ 325)) 1 tab Q3H PRN PO PAIN LEVEL 1-5 Last administered on 11/02/18at 20:45; Admin Dose 1 TAB; Start 10/07/18 at 21:00 Ondansetron HCl (Zofran Inj) 4 mg Q6H PRN IV NAUSEA AND/OR VOMITING Last administered on 10/21/18at 12:10; Admin Dose 4 MG; Start 10/07/18 at 21:00 Acetaminophen (Tylenol Tab) 650 mg Q3H PRN PO ELEVATED TEMPERATURE Last administered on 11/01/18at 04:02; Admin Dose 650 MG; Start 10/07/18 at 21:00 Atorvastatin Calcium (Lipitor) 40 mg HS PO Last administered on 11/02/18at 20:15; Admin Dose 40 MG; Start 10/08/18 at 21:00 Insulin Aspart (Novolog Insulin Pen) NOVOLOG *MODERATE* ALGORITHM WITH MEALS BEDTIME SC Last administered on 11/03/18 11:58; Admin Dose 4 UNIT; Start 10/09/18 at 11:30 Glucose (Glutose) 15 gm Q15M PRN PO DECREASED GLUCOSE; Start 10/09/18 at 12:00 Glucose (Glutose) 22.5 gm Q15M PRN PO DECREASED GLUCOSE; Start 10/09/18 at 12:00 Dextrose (D50w Syringe) 25 ml Q15M PRN IV DECREASED GLUCOSE; Start 10/09/18 at 12:00 Dextrose (D50w Syringe) 50 ml Q15M PRN IV DECREASED GLUCOSE; Start 10/09/18 at 12:00 Glucagon (Glucagen) 1 mg Q15M PRN IM DECREASED GLUCOSE; Start 10/09/18 at 12:00 Glucose (Glutose) 15 gm Q15M PRN BUCCAL DECREASED GLUCOSE Last administered on 10/20/18 18:52; Admin Dose 15 GM; Start 10/09/18 at 12:00 Diagnostic Test (Pha) (Accu-Chek) 1 ea AC MEALS AND BEDTIME XX Last administered on 11/03/18 11:40; Admin Dose 1 EA; Start 10/09/18 at 11:00 Aspirin (Aspirin) 81 mg DAILY PO Last administered on 11/03/18 08:16; Admin Dose 81 MG; Start 10/13/18 at 09:00 Albumin Human 100 ml @ 100 mls/hr DURING DIALYSIS PRN IV BLOOD PRESSURE SUPPORT Last administered on 11/01/18 18:32; Admin Dose 100 MLS/HR; Start 10/13/18 at 11:30 Magnesium Hydroxide (Milk Of Mag) 30 ml DAILY PRN PO CONSTIPATION; Start 10/16/18 at 06:30 Furosemide (Lasix) 40 mg DAILY PO Last administered on 11/02/18 08:27; Admin Dose 40 MG; Start 10/20/18 at 09:00 Heparin Sodium (Porcine) (Heparin (1000 Units/ml)) 500 unit WITH DIALYSIS HE Last administered on 11/03/18 13:19; Admin Dose 500 UNIT; Start 10/20/18 at 10:00 Heparin Sodium (Porcine) (Heparin (1000 Units/ml)) 1,500 unit WITH DIALYSIS HE Last administered on 11/03/18 13:18; Admin Dose 1,500 UNIT; Start 10/20/18 at 10:00 Ondansetron HCl (Zofran Tab) 4 mg Q6H PRN PO NAUSEA AND/OR VOMITING; Start 10/20/18 at 17:30 Epoetin Jero-epbx (Retacrit (Esrd)) 10,000 unit MoWeFr@1700 SC Last administered on 10/31/18 17:53; Admin Dose 10,000 UNIT; Start 10/24/18 at 17:00 Guaifenesin/ Dextromethorphan (Robitussin Dm Liquid Cup) 10 ml Q4H PRN PO cough Last administered on 10/25/18 15:49; Admin Dose 10 ML; Start 10/24/18 at 11:00 Alteplase, Recombinant (Cathflo (Activase)) 4 mg MAY REPEAT X1 PRN CATHETER IF CATHETER REMAINS OCCULUDED Last administered on 11/01/18 20:44; Admin Dose 4 MG; Start 10/29/18 at 14:00 Apixaban (Eliquis) 2.5 mg BID PO Last administered on 11/03/18 08:16; Admin Dose 2.5 MG; Start 10/31/18 at 21:00 Insulin Aspart (Novolog Insulin Pen) 7 unit WITH MEALS SC Last administered on 11/03/18 11:54; Admin Dose 7 UNIT; Start 11/01/18 at 11:50 Insulin Glargine (Lantus) 21 units DAILY@0830 SC Last administered on 11/03/18 08:18; Admin Dose 21 UNITS; Start 11/02/18 at 08:30 Famotidine (Pepcid) 10 mg DAILY PO Last administered on 11/03/18 08:16; Admin Dose 10 MG; Start 11/03/18 at 09:00 Lactobacillus Acidophilus/ Rhamnosus (Culturelle) 1 cap BID PO Last administered on 11/03/18 08:15; Admin Dose 1 CAP; Start 11/02/18 at 21:00 Escitalopram Oxalate (Lexapro) 5 mg DAILY PO Last administered on 11/03/18 08:15; Admin Dose 5 MG; Start 11/03/18 at 09:00 PAUL LINDER MD Nov 03, 2018 15:02
[2018-11-03] MEDS: ALTEPLASE (CATHFLO) 2 MG INJ CATHETER PRN (16:13)
[2018-11-03] MEDS: EPOETIN ALFA-EPBX (ESRD) 10,000 UNIT/ML VIAL SC SCH (18:43)
[2018-11-03] MEDS: ATORVASTATIN 40 MG TAB PO SCH (20:04)
[2018-11-04] VITALS (12 sets, daily range): BP systolic 103–132; BP diastolic 43–72; PULSE 45–86; RESP 16–18
[2018-11-04] MEDS: ACCU-CHEK XX SCH ×4 (07:25→20:09)
[2018-11-04] MEDS: INSULIN ASPART [NOVOLOG] 3 ML PEN SC SCH ×7 (08:47→20:10)
[2018-11-04] MEDS: LACTOBACILLUS RHAMNOSUS CAP PO SCH ×2 (09:03→20:10)
[2018-11-04] MEDS: ESCITALOPRAM 10 MG TAB PO SCH (09:03)
[2018-11-04] MEDS: ASPIRIN 81 MG TAB PO SCH (09:03)
[2018-11-04] MEDS: FAMOTIDINE 20 MG TAB PO SCH (09:04)
[2018-11-04] MEDS: FUROSEMIDE 40 MG TAB PO SCH (09:04)
[2018-11-04] MEDS: APIXABAN 5 MG TABLET PO SCH ×2 (09:04→20:10)
[2018-11-04] MEDS: BALSAM PERU/CASTOR OIL 60 GM TUBE TOP SCH (09:12)
[2018-11-04] MEDS: INSULIN GLARGINE [LANTus] (100 UNITS/ML) SYG SC SCH (09:17)
--- NOTE | 2018-11-04 12:41 | PN ---
Date/Time of Note Date/Time of Note DATE: 11/04/18 TIME: 12:41 Assessment/Plan VTE Prophylaxis Risk score (from Nsg)>0 risk: 16 SCD applied (from Nsg): Yes Pharmacological prophylaxis: heparin Lines/Catheters IV Catheter Type (from Nrsg): Mid Line Urinary Cath still in place: No Assessment/Plan Hospital Course Alert, no distress AOx3 RRR Breathing comfortably No RUQ pain, soft nt nd no edema, venous stasis Gangrenous toes 67 yo with numerous comorbidities including dyslipidemia, IDDM, ESRD on HD and severe PVD who is also anticoagulated on Eliquis/Plavix,here with worsening juan pablo ise. Subsequently underwent CABG for severe CAD. HD has been complicated by issues with difficult access as he has extensive venous clots. Permacath placed here no longer functions. Per vascluar surgery, he will require transfer to tertiary center to see if access can be placed. For now has femoral line Cholecystitis: - Symptoms much better. s/p abx ESRD: - HD per renal via femoral access IVC clot: - Eliquis NSTEMI/Multivessel coronary artery disease - s/p LHC 09/30 - s/p CABG 10/07 - Cautiously resume beta blockers. - Anticoag, antiplatelet per CT surgery - Continue statin. Severe acute symptomatic blood loss anemia -Improved with multiple transfusion. 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 -Wound care #Obesity with BMI 36.3 -Weight reduction advised. #Anemia of ESRD -on Epogen with hemodialysis #Debility secondary to comorbidities -Continue PT -ARU eval #Depression -Started Paxil DVT prophylaxis: SCDs PUD prophylaxis: Protonix DC planning: To tertiary center for vascular access Result Diagram: 11/03/18 0731 11/03/18 0535 Results 24hrs Laboratory Tests Test 11/03/18 18:36 11/03/18 19:52 11/04/18 08:20 11/04/18 11:52 Bedside Glucose 139 169 272 H 207 Subjective 24 Hr Interval Summary Free Text/Dictation [facility] rejected transfer patient otherwise unchanged Exam/Review of Systems Exam Vitals Vital Signs Date Temp Pulse Resp B/P (MAP) Pulse Ox O2 O2 Flow FiO2 Time Delivery Rate 11/04/18 98.1 76 17 132/60 97 11:47 (84) 11/04/18 2.0 08:39 11/03/18 Nasal 19:35 Cannula 11/03/18 27 02:36 Intake and Output 11/03/18 11/03/18 11/04/18 1515:00 23:00 07:00 IntakeIntake Total 1600 ml 340 ml OutputOutput Total 200 ml 1400 ml BalanceBalance -200 ml 200 ml 340 ml Results Results 24hrs Laboratory Tests Test 11/03/18 18:36 11/03/18 19:52 11/04/18 08:20 11/04/18 11:52 Bedside Glucose 139 169 272 H 207 Medications Medication Current Medications Oxycodone/ Acetaminophen (Percocet (5/ 325)) 1 tab Q3H PRN PO PAIN LEVEL 1-5 Last administered on 11/02/18 20:45; Admin Dose 1 TAB; Start 10/07/18 at 21:00 Ondansetron HCl (Zofran Inj) 4 mg Q6H PRN IV NAUSEA AND/OR VOMITING Last administered on 10/21/18at 12:10; Admin Dose 4 MG; Start 10/07/18 at 21:00 Acetaminophen (Tylenol Tab) 650 mg Q3H PRN PO ELEVATED TEMPERATURE Last administered on 11/01/18 04:02; Admin Dose 650 MG; Start 10/07/18 at 21:00 Atorvastatin Calcium (Lipitor) 40 mg HS PO Last administered on 11/03/18 20:04; Admin Dose 40 MG; Start 10/08/18 at 21:00 Insulin Aspart (Novolog Insulin Pen) NOVOLOG *MODERATE* ALGORITHM WITH MEALS BEDTIME SC Last administered on 11/04/18 12:00; Admin Dose 4 UNIT; Start 10/09/18 at 11:30 Glucose (Glutose) 15 gm Q15M PRN PO DECREASED GLUCOSE; Start 10/09/18 at 12:00 Glucose (Glutose) 22.5 gm Q15M PRN PO DECREASED GLUCOSE; Start 10/09/18 at 12:00 Dextrose (D50w Syringe) 25 ml Q15M PRN IV DECREASED GLUCOSE; Start 10/09/18 at 12:00 Dextrose (D50w Syringe) 50 ml Q15M PRN IV DECREASED GLUCOSE; Start 10/09/18 at 12:00 Glucagon (Glucagen) 1 mg Q15M PRN IM DECREASED GLUCOSE; Start 10/09/18 at 12:00 Glucose (Glutose) 15 gm Q15M PRN BUCCAL DECREASED GLUCOSE Last administered on 10/20/18 18:52; Admin Dose 15 GM; Start 10/09/18 at 12:00 Diagnostic Test (Pha) (Accu-Chek) 1 ea AC MEALS AND BEDTIME XX Last administered on 11/04/18 11:53; Admin Dose 1 EA; Start 10/09/18 at 11:00 Aspirin (Aspirin) 81 mg DAILY PO Last administered on 11/04/18 09:03; Admin Dose 81 MG; Start 10/13/18 at 09:00 Albumin Human 100 ml @ 100 mls/hr DURING DIALYSIS PRN IV BLOOD PRESSURE SUPPORT Last administered on 11/01/18 18:32; Admin Dose 100 MLS/HR; Start 10/13/18 at 11:30 Magnesium Hydroxide (Milk Of Mag) 30 ml DAILY PRN PO CONSTIPATION; Start 10/16/18 at 06:30 Furosemide (Lasix) 40 mg DAILY PO Last administered on 11/04/18 09:04; Admin Dose 40 MG; Start 10/20/18 at 09:00 Heparin Sodium (Porcine) (Heparin (1000 Units/ml)) 500 unit WITH DIALYSIS HE Last administered on 11/03/18 13:19; Admin Dose 500 UNIT; Start 10/20/18 at 10:00 Heparin Sodium (Porcine) (Heparin (1000 Units/ml)) 1,500 unit WITH DIALYSIS HE Last administered on 11/03/18 13:18; Admin Dose 1,500 UNIT; Start 10/20/18 at 10:00 Ondansetron HCl (Zofran Tab) 4 mg Q6H PRN PO NAUSEA AND/OR VOMITING; Start 10/20/18 at 17:30 Epoetin Jero-epbx (Retacrit (Esrd)) 10,000 unit MoWeFr@1700 SC Last administered on 11/03/18 18:43; Admin Dose 10,000 UNIT; Start 10/24/18 at 17:00 Guaifenesin/ Dextromethorphan (Robitussin Dm Liquid Cup) 10 ml Q4H PRN PO cough Last administered on 10/25/18 15:49; Admin Dose 10 ML; Start 10/24/18 at 11:00 Alteplase, Recombinant (Cathflo (Activase)) 4 mg MAY REPEAT X1 PRN CATHETER IF CATHETER REMAINS OCCULUDED Last administered on 11/03/18 16:13; Admin Dose 4 MG; Start 10/29/18 at 14:00 Apixaban (Eliquis) 2.5 mg BID PO Last administered on 11/04/18 09:04; Admin Dose 2.5 MG; Start 10/31/18 at 21:00 Insulin Aspart (Novolog Insulin Pen) 7 unit WITH MEALS SC Last administered on 11/04/18 12:00; Admin Dose 7 UNIT; Start 11/01/18 at 11:50 Insulin Glargine (Lantus) 21 units DAILY@0830 SC Last administered on 11/04/18 09:17; Admin Dose 21 UNITS; Start 11/02/18 at 08:30 Famotidine (Pepcid) 10 mg DAILY PO Last administered on 11/04/18 09:04; Admin Dose 10 MG; Start 11/03/18 at 09:00 Lactobacillus Acidophilus/ Rhamnosus (Culturelle) 1 cap BID PO Last administered on 11/04/18 09:03; Admin Dose 1 CAP; Start 11/02/18 at 21:00 Escitalopram Oxalate (Lexapro) 5 mg DAILY PO Last administered on 11/04/18 09:03; Admin Dose 5 MG; Start 11/03/18 at 09:00 PAUL LINDER MD Nov 04, 2018 12:41
--- NOTE | 2018-11-04 13:47 | CONS ---
Assessment/Plan Assessment/Plan Hospital Course (Demo Recall) Afib/flutter: new onset, rates controlled. Now on Eliquis Cholecystitis: started on antibiotics. Seen on CT. No symptoms or exam findings CAD s/p CABG: CABG x4 10/07/18, ÁLVAREZ to LAD, SVG to ramus, SVG to OM1 sequenced to OM2. Doing well. Extubated 10/08, off pressors NSTEMI: Trop peak 1.1 and trended down. S/p cath 09/30/18 with diffuse multivessel CAD. CABG as above Upper GI bleed: due to anastomotic ulcer seen on EGD 09/26. No bleeding since. Hgb relatively stable. Anemia: due to above. s/p 5 units PRBCs and 2 units intraop. Joekebach: Kaylee 1. Not on BB. No pauses or high grade block. 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 Unable to place right IJ. Now s/p left femoral permacath 10/24 which clotted but started to work again HTN H/o Billroth Depression: now on meds -denied at [facility]. ?Placement -Eliquis 2.5mg BID per nephrology -antibiotics -ASA 81mg -continue to hold metoprolol as pt has bradycardia -lipitor 40mg -lasix 40mg PO -HD per nephrology Consultation Date/Type/Reason Admit Date/Time September 24, 2018 at 08:08 Initial Consult Date 09/24/18 Type of Consult Cardiology Date/Time of Note DATE: 11/04/18 TIME: 13:45 24 HR Interval Summary Free Text/Dictation Declined at [facility] due to availability. More awake and interactive per . Also working with PT with slight progress Exam/Review of Systems Vital Signs Vitals Vital Signs Date Temp Pulse Resp B/P (MAP) Pulse Ox O2 O2 Flow FiO2 Time Delivery Rate 11/04/18 72 13:08 11/04/18 98.1 17 132/60 97 11:47 (84) 11/04/18 2.0 08:39 11/03/18 Nasal 19:35 Cannula 11/03/18 27 02:36 Intake and Output 11/03/18 11/03/18 11/04/18 1515:00 23:00 07:00 IntakeIntake Total 1600 ml 340 ml OutputOutput Total 200 ml 1400 ml BalanceBalance -200 ml 200 ml 340 ml Exam Constitutional: alert, oriented Neck: No jvd Respiratory: clear to auscultation, diminished breath sounds; No crackles/rales Cardiovascular: regular rate and rhythm; No edema Gastrointestinal: soft, non-tender; No distended Musculoskeletal: No nl extremities to inspection Labs Result Diagram: 11/03/18 0731 11/03/18 0535 Results 24hrs Laboratory Tests Test 11/03/18 18:36 11/03/18 19:52 11/04/18 08:20 11/04/18 11:52 Bedside Glucose 139 169 272 H 207 Medications Medications Current Medications Oxycodone/ Acetaminophen (Percocet (5/ 325)) 1 tab Q3H PRN PO PAIN LEVEL 1-5 Last administered on 11/02/18at 20:45; Admin Dose 1 TAB; Start 10/07/18 at 21:00 Ondansetron HCl (Zofran Inj) 4 mg Q6H PRN IV NAUSEA AND/OR VOMITING Last administered on 10/21/18at 12:10; Admin Dose 4 MG; Start 10/07/18 at 21:00 Acetaminophen (Tylenol Tab) 650 mg Q3H PRN PO ELEVATED TEMPERATURE Last administered on 11/01/18at 04:02; Admin Dose 650 MG; Start 10/07/18 at 21:00 Atorvastatin Calcium (Lipitor) 40 mg HS PO Last administered on 11/03/18at 20:04; Admin Dose 40 MG; Start 10/08/18 at 21:00 Insulin Aspart (Novolog Insulin Pen) NOVOLOG *MODERATE* ALGORITHM WITH MEALS BEDTIME SC Last administered on 11/04/18at 12:00; Admin Dose 4 UNIT; Start 10/09/18 at 11:30 Glucose (Glutose) 15 gm Q15M PRN PO DECREASED GLUCOSE; Start 10/09/18 at 12:00 Glucose (Glutose) 22.5 gm Q15M PRN PO DECREASED GLUCOSE; Start 10/09/18 at 12:00 Dextrose (D50w Syringe) 25 ml Q15M PRN IV DECREASED GLUCOSE; Start 10/09/18 at 12:00 Dextrose (D50w Syringe) 50 ml Q15M PRN IV DECREASED GLUCOSE; Start 10/09/18 at 12:00 Glucagon (Glucagen) 1 mg Q15M PRN IM DECREASED GLUCOSE; Start 10/09/18 at 12:00 Glucose (Glutose) 15 gm Q15M PRN BUCCAL DECREASED GLUCOSE Last administered on 10/20/18 18:52; Admin Dose 15 GM; Start 10/09/18 at 12:00 Diagnostic Test (Pha) (Accu-Chek) 1 ea AC MEALS AND BEDTIME XX Last administered on 11/04/18 11:53; Admin Dose 1 EA; Start 10/09/18 at 11:00 Aspirin (Aspirin) 81 mg DAILY PO Last administered on 11/04/18 09:03; Admin Dose 81 MG; Start 10/13/18 at 09:00 Albumin Human 100 ml @ 100 mls/hr DURING DIALYSIS PRN IV BLOOD PRESSURE SUPPORT Last administered on 11/01/18 18:32; Admin Dose 100 MLS/HR; Start 10/13/18 at 11:30 Magnesium Hydroxide (Milk Of Mag) 30 ml DAILY PRN PO CONSTIPATION; Start 10/16/18 at 06:30 Furosemide (Lasix) 40 mg DAILY PO Last administered on 11/04/18 09:04; Admin Dose 40 MG; Start 10/20/18 at 09:00 Heparin Sodium (Porcine) (Heparin (1000 Units/ml)) 500 unit WITH DIALYSIS HE Last administered on 11/03/18 13:19; Admin Dose 500 UNIT; Start 10/20/18 at 10:00 Heparin Sodium (Porcine) (Heparin (1000 Units/ml)) 1,500 unit WITH DIALYSIS HE Last administered on 11/03/18 13:18; Admin Dose 1,500 UNIT; Start 10/20/18 at 10:00 Ondansetron HCl (Zofran Tab) 4 mg Q6H PRN PO NAUSEA AND/OR VOMITING; Start 10/20/18 at 17:30 Epoetin Jero-epbx (Retacrit (Esrd)) 10,000 unit MoWeFr@1700 SC Last administered on 11/03/18 18:43; Admin Dose 10,000 UNIT; Start 10/24/18 at 17:00 Guaifenesin/ Dextromethorphan (Robitussin Dm Liquid Cup) 10 ml Q4H PRN PO cough Last administered on 10/25/18 15:49; Admin Dose 10 ML; Start 10/24/18 at 11:00 Alteplase, Recombinant (Cathflo (Activase)) 4 mg MAY REPEAT X1 PRN CATHETER IF CATHETER REMAINS OCCULUDED Last administered on 11/03/18 16:13; Admin Dose 4 MG; Start 10/29/18 at 14:00 Apixaban (Eliquis) 2.5 mg BID PO Last administered on 11/04/18 09:04; Admin Dose 2.5 MG; Start 10/31/18 at 21:00 Insulin Aspart (Novolog Insulin Pen) 7 unit WITH MEALS SC Last administered on 11/04/18 12:00; Admin Dose 7 UNIT; Start 11/01/18 at 11:50 Insulin Glargine (Lantus) 21 units DAILY@0830 SC Last administered on 11/04/18 09:17; Admin Dose 21 UNITS; Start 11/02/18 at 08:30 Famotidine (Pepcid) 10 mg DAILY PO Last administered on 11/04/18 09:04; Admin Dose 10 MG; Start 11/03/18 at 09:00 Lactobacillus Acidophilus/ Rhamnosus (Culturelle) 1 cap BID PO Last administered on 11/04/18 09:03; Admin Dose 1 CAP; Start 11/02/18 at 21:00 Escitalopram Oxalate (Lexapro) 5 mg DAILY PO Last administered on 11/04/18 09:03; Admin Dose 5 MG; Start 11/03/18 at 09:00 LAVON SEE Nov 04, 2018 13:47
--- NOTE | 2018-11-04 16:53 | RADRPT ---
Vent Rate: 82 bpm RR Interval: 780 msec AL Interval: 226 msec QRS Duration: 136 msec QT Interval: 442 msec QTC Interval: 500 msec P-R-T [place]: 0 - -104 - 53 degrees Sinus rhythm...normal P axis, V-rate 50- 99 Multiple ventricular premature complexes...V complexes w/ short R-R intervls Prolonged AL interval...AL >220, V-rate 50- 90 RBBB and LAFB...QRSd >120mS, axis(-40,240) Electronically Signed By: Dell De La Torre
--- NOTE | 2018-11-04 18:09 | CONS ---
Assessment/Plan Assessment/Plan Assessment/Plan (Daily) 1. acute Hyperkalemia due to GI bleeding- resolved 2.Acute fluid overload- now resolved 3. acute GI bleeding causing acute blood loss anemia- S/p Status post EGD/colonoscopy 09/27/19 -Anastomosis ulcer -Normal colonoscopy 4. Severe Anemia with Hb 5.8 on admission s/p 5 U PRBC transfusion for GI ble eding during this admission - pt also has anemia of ESRD 5. H/O HTN 6. H/O peripherla vascular disease 7. ESRD on HD -follow up at [facility] for scheduled HD on MWF 8. 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 Unable to place right IJ by IR due to central stenosis. Now s/p left femoral permacath 10/24 but still intermittently getting clotted- Discussed with Dr. Velasco - Recommended for higher level of care for diffficult HD access, will need IR or vascular surgery at Tertiary center to address HD access establishment due to IVC thrombosis and Central stenosis s/p HD yesterday 2 L removed , continue Eliquis 2.5 mg PO BID ,s/p HD yesterday 1 L removed- HD ordered for Saturday and then we will keep pt on MWF schedule d/c lasix due to low BP Epogen 63984 units SQ MWF- Hb 8.8 today will follow up Consultation Date/Type/Reason Admit Date/Time September 24, 2018 at 08:08 Initial Consult Date 09/24/18 Type of Consult NEPHROLOGY Date/Time of Note DATE: 11/04/18 TIME: 18:08 Exam/Review of Systems Exam Vitals Vital Signs Date Temp Pulse Resp B/P (MAP) Pulse Ox O2 O2 Flow FiO2 Time Delivery Rate 11/04/18 83 17:03 11/04/18 97.8 18 117/55 95 15:53 (75) 11/04/18 2.0 08:39 11/04/18 Nasal 08:00 Cannula 11/03/18 27 02:36 Intake and Output 11/03/18 11/03/18 11/04/18 1515:00 23:00 07:00 IntakeIntake Total 1600 ml 340 ml OutputOutput Total 200 ml 1400 ml BalanceBalance -200 ml 200 ml 340 ml Exam Constitutional: alert, awake no acute distress Neck: supple, no JVD, no LAD Respiratory: crackles/rales, diminished breath sounds Cardiovascular: regular rate and rhythm, nl pulses, Scar healthy Gastrointestinal: soft, non-tender Musculoskeletal: swelling Extremities: 1+ pitting edema, left groin permacath 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: awake, alert, non focal Results Result Diagram: 11/03/18 0731 11/03/18 0535 Results 24hrs Laboratory Tests Test 11/03/18 18:36 11/03/18 19:52 11/04/18 08:20 11/04/18 11:52 Bedside Glucose 139 169 272 H 207 Test 11/04/18 16:54 Bedside Glucose 85 Medications Medication Current Medications Oxycodone/ Acetaminophen (Percocet (5/ 325)) 1 tab Q3H PRN PO PAIN LEVEL 1-5 Last administered on 11/02/18at 20:45; Admin Dose 1 TAB; Start 10/07/18 at 21:00 Ondansetron HCl (Zofran Inj) 4 mg Q6H PRN IV NAUSEA AND/OR VOMITING Last administered on 10/21/18at 12:10; Admin Dose 4 MG; Start 10/07/18 at 21:00 Acetaminophen (Tylenol Tab) 650 mg Q3H PRN PO ELEVATED TEMPERATURE Last administered on 11/01/18 04:02; Admin Dose 650 MG; Start 10/07/18 at 21:00 Atorvastatin Calcium (Lipitor) 40 mg HS PO Last administered on 11/03/18at 20:04; Admin Dose 40 MG; Start 10/08/18 at 21:00 Insulin Aspart (Novolog Insulin Pen) NOVOLOG *MODERATE* ALGORITHM WITH MEALS BEDTIME SC Last administered on 11/04/18at 12:00; Admin Dose 4 UNIT; Start 10/09/18 at 11:30 Glucose (Glutose) 15 gm Q15M PRN PO DECREASED GLUCOSE; Start 10/09/18 at 12:00 Glucose (Glutose) 22.5 gm Q15M PRN PO DECREASED GLUCOSE; Start 10/09/18 at 12:00 Dextrose (D50w Syringe) 25 ml Q15M PRN IV DECREASED GLUCOSE; Start 10/09/18 at 12:00 Dextrose (D50w Syringe) 50 ml Q15M PRN IV DECREASED GLUCOSE; Start 10/09/18 at 12:00 Glucagon (Glucagen) 1 mg Q15M PRN IM DECREASED GLUCOSE; Start 10/09/18 at 12:00 Glucose (Glutose) 15 gm Q15M PRN BUCCAL DECREASED GLUCOSE Last administered on 10/20/18 18:52; Admin Dose 15 GM; Start 10/09/18 at 12:00 Diagnostic Test (Pha) (Accu-Chek) 1 ea AC MEALS AND BEDTIME XX Last administered on 11/04/18 16:54; Admin Dose 1 EA; Start 10/09/18 at 11:00 Aspirin (Aspirin) 81 mg DAILY PO Last administered on 11/04/18 09:03; Admin Dose 81 MG; Start 10/13/18 at 09:00 Albumin Human 100 ml @ 100 mls/hr DURING DIALYSIS PRN IV BLOOD PRESSURE SUPPORT Last administered on 11/01/18 18:32; Admin Dose 100 MLS/HR; Start 10/13/18 at 11:30 Magnesium Hydroxide (Milk Of Mag) 30 ml DAILY PRN PO CONSTIPATION; Start 10/16/18 at 06:30 Furosemide (Lasix) 40 mg DAILY PO Last administered on 11/04/18 09:04; Admin Dose 40 MG; Start 10/20/18 at 09:00 Heparin Sodium (Porcine) (Heparin (1000 Units/ml)) 500 unit WITH DIALYSIS HE Last administered on 11/03/18 13:19; Admin Dose 500 UNIT; Start 10/20/18 at 10:00 Heparin Sodium (Porcine) (Heparin (1000 Units/ml)) 1,500 unit WITH DIALYSIS HE Last administered on 11/03/18 13:18; Admin Dose 1,500 UNIT; Start 10/20/18 at 10:00 Ondansetron HCl (Zofran Tab) 4 mg Q6H PRN PO NAUSEA AND/OR VOMITING; Start 10/20/18 at 17:30 Epoetin Jero-epbx (Retacrit (Esrd)) 10,000 unit MoWeFr@1700 SC Last administered on 11/03/18 18:43; Admin Dose 10,000 UNIT; Start 10/24/18 at 17:00 Guaifenesin/ Dextromethorphan (Robitussin Dm Liquid Cup) 10 ml Q4H PRN PO cough Last administered on 10/25/18 15:49; Admin Dose 10 ML; Start 10/24/18 at 11:00 Alteplase, Recombinant (Cathflo (Activase)) 4 mg MAY REPEAT X1 PRN CATHETER IF CATHETER REMAINS OCCULUDED Last administered on 11/03/18 16:13; Admin Dose 4 MG; Start 10/29/18 at 14:00 Apixaban (Eliquis) 2.5 mg BID PO Last administered on 11/04/18 09:04; Admin Dose 2.5 MG; Start 10/31/18 at 21:00 Insulin Aspart (Novolog Insulin Pen) 7 unit WITH MEALS SC Last administered on 11/04/18 12:00; Admin Dose 7 UNIT; Start 11/01/18 at 11:50 Insulin Glargine (Lantus) 21 units DAILY@0830 SC Last administered on 11/04/18 09:17; Admin Dose 21 UNITS; Start 11/02/18 at 08:30 Famotidine (Pepcid) 10 mg DAILY PO Last administered on 11/04/18 09:04; Admin Dose 10 MG; Start 11/03/18 at 09:00 Lactobacillus Acidophilus/ Rhamnosus (Culturelle) 1 cap BID PO Last administered on 11/04/18 09:03; Admin Dose 1 CAP; Start 11/02/18 at 21:00 Escitalopram Oxalate (Lexapro) 5 mg DAILY PO Last administered on 11/04/18 09:03; Admin Dose 5 MG; Start 11/03/18 at 09:00 RAQUEL MCDOWELL MD Nov 04, 2018 18:09
[2018-11-04] MEDS: ATORVASTATIN 40 MG TAB PO SCH (20:10)
[2018-11-05] VITALS (25 sets, daily range): BP systolic 89–121; BP diastolic 30–60; PULSE 73–90; RESP 16–18
[2018-11-05] MEDS: ACCU-CHEK XX SCH ×4 (07:25→20:46)
--- NOTE | 2018-11-05 07:40 | CONS ---
Assessment/Plan Assessment/Plan Hospital Course (Demo Recall) Afib/flutter: new onset, rates controlled. Now on Eliquis Cholecystitis: started on antibiotics. Seen on CT. No symptoms or exam findings CAD s/p CABG: CABG x4 10/07/18, ÁLVAREZ to LAD, SVG to ramus, SVG to OM1 sequenced to OM2. Doing well. Extubated 10/08, off pressors NSTEMI: Trop peak 1.1 and trended down. S/p cath 09/30/18 with diffuse multivessel CAD. CABG as above Upper GI bleed: due to anastomotic ulcer seen on EGD 09/26. No bleeding since. Hgb relatively stable. Anemia: due to above. s/p 5 units PRBCs and 2 units intraop. Wenckebach: Kaylee 1. Not on BB. No pauses or high grade block. 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 Unable to place right IJ. Now s/p left femoral permacath 10/24 which clotted but started to work again HTN H/o Billroth Depression: now on meds -awaiting placement. Per Dr. Mejia, he can schedule outpt intervention at a different hospital -Eliquis 2.5mg BID per nephrology -antibiotics -ASA 81mg -continue to hold metoprolol as pt has bradycardia -lipitor 40mg -lasix 40mg PO -HD per nephrology Consultation Date/Type/Reason Admit Date/Time September 24, 2018 at 08:08 Initial Consult Date 09/24/18 Type of Consult Cardiology Date/Time of Note DATE: 11/05/18 TIME: 07:38 24 HR Interval Summary Free Text/Dictation Sitting in chair. To have HD today. No complaints Exam/Review of Systems Vital Signs Vitals Vital Signs Date Temp Pulse Resp B/P (MAP) Pulse Ox O2 O2 Flow FiO2 Time Delivery Rate 11/05/18 2.0 06:23 11/05/18 76 04:46 11/05/18 97.5 18 101/60 95 03:55 (74) 11/04/18 Nasal 20:30 Cannula 11/03/18 27 02:36 Intake and Output 11/04/18 11/04/18 11/05/18 1515:00 23:00 07:00 IntakeIntake Total 1220 ml 60 ml BalanceBalance 1220 ml 60 ml Exam Constitutional: alert, oriented Psych: no complaints, nl mood/affect Head: normocephalic, atraumatic Neck: supple; No jvd Respiratory: clear to auscultation; No crackles/rales Cardiovascular: No regular rate and rhythm, No edema Gastrointestinal: soft, non-tender; No distended 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: nl mental status, nl speech Labs Result Diagram: 11/03/18 0731 11/03/18 0535 Results 24hrs Laboratory Tests Test 11/04/18 08:20 11/04/18 11:52 11/04/18 16:54 11/04/18 20:09 Bedside Glucose 272 H 207 85 155 Medications Medications Current Medications Oxycodone/ Acetaminophen (Percocet (5/ 325)) 1 tab Q3H PRN PO PAIN LEVEL 1-5 Last administered on 11/02/18at 20:45; Admin Dose 1 TAB; Start 10/07/18 at 21:00 Ondansetron HCl (Zofran Inj) 4 mg Q6H PRN IV NAUSEA AND/OR VOMITING Last administered on 10/21/18at 12:10; Admin Dose 4 MG; Start 10/07/18 at 21:00 Acetaminophen (Tylenol Tab) 650 mg Q3H PRN PO ELEVATED TEMPERATURE Last administered on 11/01/18 04:02; Admin Dose 650 MG; Start 10/07/18 at 21:00 Atorvastatin Calcium (Lipitor) 40 mg HS PO Last administered on 11/04/18at 20:10; Admin Dose 40 MG; Start 10/08/18 at 21:00 Insulin Aspart (Novolog Insulin Pen) NOVOLOG *MODERATE* ALGORITHM WITH MEALS BEDTIME SC Last administered on 11/04/18 12:00; Admin Dose 4 UNIT; Start 10/09/18 at 11:30 Glucose (Glutose) 15 gm Q15M PRN PO DECREASED GLUCOSE; Start 10/09/18 at 12:00 Glucose (Glutose) 22.5 gm Q15M PRN PO DECREASED GLUCOSE; Start 10/09/18 at 12:00 Dextrose (D50w Syringe) 25 ml Q15M PRN IV DECREASED GLUCOSE; Start 10/09/18 at 12:00 Dextrose (D50w Syringe) 50 ml Q15M PRN IV DECREASED GLUCOSE; Start 10/09/18 at 12:00 Glucagon (Glucagen) 1 mg Q15M PRN IM DECREASED GLUCOSE; Start 10/09/18 at 12:00 Glucose (Glutose) 15 gm Q15M PRN BUCCAL DECREASED GLUCOSE Last administered on 10/20/18 18:52; Admin Dose 15 GM; Start 10/09/18 at 12:00 Diagnostic Test (Pha) (Accu-Chek) 1 ea AC MEALS AND BEDTIME XX Last administered on 11/04/18 20:09; Admin Dose 1 EA; Start 10/09/18 at 11:00 Aspirin (Aspirin) 81 mg DAILY PO Last administered on 11/04/18 09:03; Admin Dose 81 MG; Start 10/13/18 at 09:00 Albumin Human 100 ml @ 100 mls/hr DURING DIALYSIS PRN IV BLOOD PRESSURE SUPPORT Last administered on 11/01/18 18:32; Admin Dose 100 MLS/HR; Start 10/13/18 at 11:30 Magnesium Hydroxide (Milk Of Mag) 30 ml DAILY PRN PO CONSTIPATION; Start 10/16/18 at 06:30 Furosemide (Lasix) 40 mg DAILY PO Last administered on 11/04/18 09:04; Admin Dose 40 MG; Start 10/20/18 at 09:00 Heparin Sodium (Porcine) (Heparin (1000 Units/ml)) 500 unit WITH DIALYSIS HE Last administered on 11/03/18 13:19; Admin Dose 500 UNIT; Start 10/20/18 at 10:00 Heparin Sodium (Porcine) (Heparin (1000 Units/ml)) 1,500 unit WITH DIALYSIS HE Last administered on 11/03/18 13:18; Admin Dose 1,500 UNIT; Start 10/20/18 at 10:00 Ondansetron HCl (Zofran Tab) 4 mg Q6H PRN PO NAUSEA AND/OR VOMITING; Start 10/20/18 at 17:30 Epoetin Jero-epbx (Retacrit (Esrd)) 10,000 unit MoWeFr@1700 SC Last administered on 11/03/18 18:43; Admin Dose 10,000 UNIT; Start 10/24/18 at 17:00 Guaifenesin/ Dextromethorphan (Robitussin Dm Liquid Cup) 10 ml Q4H PRN PO cough Last administered on 10/25/18 15:49; Admin Dose 10 ML; Start 10/24/18 at 11:00 Alteplase, Recombinant (Cathflo (Activase)) 4 mg MAY REPEAT X1 PRN CATHETER IF CATHETER REMAINS OCCULUDED Last administered on 11/03/18 16:13; Admin Dose 4 MG; Start 10/29/18 at 14:00 Apixaban (Eliquis) 2.5 mg BID PO Last administered on 11/04/18 20:10; Admin Dose 2.5 MG; Start 10/31/18 at 21:00 Insulin Aspart (Novolog Insulin Pen) 7 unit WITH MEALS SC Last administered on 11/04/18 12:00; Admin Dose 7 UNIT; Start 11/01/18 at 11:50 Insulin Glargine (Lantus) 21 units DAILY@0830 SC Last administered on 11/04/18 09:17; Admin Dose 21 UNITS; Start 11/02/18 at 08:30 Famotidine (Pepcid) 10 mg DAILY PO Last administered on 11/04/18 09:04; Admin Dose 10 MG; Start 11/03/18 at 09:00 Lactobacillus Acidophilus/ Rhamnosus (Culturelle) 1 cap BID PO Last administered on 11/04/18 20:10; Admin Dose 1 CAP; Start 11/02/18 at 21:00 Escitalopram Oxalate (Lexapro) 5 mg DAILY PO Last administered on 11/04/18 09:03; Admin Dose 5 MG; Start 11/03/18 at 09:00 LAVON SEE Nov 05, 2018 07:40
[2018-11-05] MEDS: HEPARIN 1000 UNITS/ML 10 ML INJ HE SCH ×2 (08:33)
[2018-11-05] MEDS: FUROSEMIDE 40 MG TAB PO SCH (09:00)
[2018-11-05] MEDS: LACTOBACILLUS RHAMNOSUS CAP PO SCH ×2 (09:43→20:41)
[2018-11-05] MEDS: ESCITALOPRAM 10 MG TAB PO SCH (09:44)
[2018-11-05] MEDS: FAMOTIDINE 20 MG TAB PO SCH (09:44)
[2018-11-05] MEDS: APIXABAN 5 MG TABLET PO SCH ×2 (09:44→20:41)
[2018-11-05] MEDS: ASPIRIN 81 MG TAB PO SCH (09:45)
[2018-11-05] MEDS: BALSAM PERU/CASTOR OIL 60 GM TUBE TOP SCH (09:45)
[2018-11-05] MEDS: INSULIN ASPART [NOVOLOG] 3 ML PEN SC SCH ×7 (09:48→20:46)
[2018-11-05] MEDS: INSULIN GLARGINE [LANTus] (100 UNITS/ML) SYG SC SCH (09:54)
--- NOTE | 2018-11-05 10:06 | CONS ---
Assessment/Plan Assessment/Plan Assessment/Plan (Daily) 1. acute Hyperkalemia due to GI bleeding- resolved 2.Acute fluid overload- now resolved 3. acute GI bleeding causing acute blood loss anemia- S/p Status post EGD/colonoscopy 09/27/19 -Anastomosis ulcer -Normal colonoscopy 4. Severe Anemia with Hb 5.8 on admission s/p 5 U PRBC transfusion for GI ble eding during this admission - pt also has anemia of ESRD 5. H/O HTN 6. H/O peripherla vascular disease 7. ESRD on HD -follow up at [facility] for scheduled HD on MWF 8. 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 Unable to place right IJ by IR due to central stenosis. Now s/p left femoral permacath 10/24 but still intermittently getting clotted- Discussed with Dr. Velasco - Recommended for higher level of care for diffficult HD access, will need IR or vascular surgery at Tertiary center to address HD access establishment due to IVC thrombosis and Central stenosis s/p HD on Saturday 2 L removed - Plan for HD today, , continue Eliquis 2.5 mg PO BID we will keep pt on [facility] schedule ( his original schedule)- last 4 sessions HD catheter has worked change lasix to 20mg po daily with holding parameters due to low BP Epogen 89394 units SQ MWF- Hb 8.8 on 11/03/18- no labs since then will follow up Consultation Date/Type/Reason Admit Date/Time September 24, 2018 at 08:08 Initial Consult Date 09/24/18 Type of Consult NEPHROLOGY Date/Time of Note DATE: 11/05/18 TIME: 10:06 24 HR Interval Summary Free Text/Dictation doing ok, Cathter has been worked now, we kept pt on MWF schedule Exam/Review of Systems Exam Vitals Vital Signs Date Temp Pulse Resp B/P (MAP) Pulse Ox O2 O2 Flow FiO2 Time Delivery Rate 11/05/18 2.0 09:07 11/05/18 81 08:31 11/05/18 97.4 18 101/55 94 07:40 (70) 11/04/18 Nasal 20:30 Cannula 11/03/18 27 02:36 Intake and Output 11/04/18 11/04/18 11/05/18 1414:59 22:59 06:59 IntakeIntake Total 1220 ml 60 ml BalanceBalance 1220 ml 60 ml Exam Constitutional: alert, awake no acute distress Neck: supple, no JVD, no LAD Respiratory: crackles/rales, diminished breath sounds Cardiovascular: regular rate and rhythm, nl pulses, Scar healthy Gastrointestinal: soft, non-tender Musculoskeletal: swelling Extremities: 1+ pitting edema, left groin permacath 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: awake, alert, non focal Results Result Diagram: 11/03/18 0731 11/03/18 0535 Results 24hrs Laboratory Tests Test 11/04/18 11:52 11/04/18 16:54 11/04/18 20:09 11/05/18 09:42 Bedside Glucose 207 85 155 175 Medications Medication Current Medications Oxycodone/ Acetaminophen (Percocet (5/ 325)) 1 tab Q3H PRN PO PAIN LEVEL 1-5 Last administered on 11/02/18at 20:45; Admin Dose 1 TAB; Start 10/07/18 at 21:00 Ondansetron HCl (Zofran Inj) 4 mg Q6H PRN IV NAUSEA AND/OR VOMITING Last administered on 10/21/18at 12:10; Admin Dose 4 MG; Start 10/07/18 at 21:00 Acetaminophen (Tylenol Tab) 650 mg Q3H PRN PO ELEVATED TEMPERATURE Last administered on 11/01/18at 04:02; Admin Dose 650 MG; Start 10/07/18 at 21:00 Atorvastatin Calcium (Lipitor) 40 mg HS PO Last administered on 11/04/18at 20:10; Admin Dose 40 MG; Start 10/08/18 at 21:00 Insulin Aspart (Novolog Insulin Pen) NOVOLOG *MODERATE* ALGORITHM WITH MEALS BEDTIME SC Last administered on 11/04/18at 12:00; Admin Dose 4 UNIT; Start 10/09/18 at 11:30 Glucose (Glutose) 15 gm Q15M PRN PO DECREASED GLUCOSE; Start 10/09/18 at 12:00 Glucose (Glutose) 22.5 gm Q15M PRN PO DECREASED GLUCOSE; Start 10/09/18 at 12:00 Dextrose (D50w Syringe) 25 ml Q15M PRN IV DECREASED GLUCOSE; Start 10/09/18 at 12:00 Dextrose (D50w Syringe) 50 ml Q15M PRN IV DECREASED GLUCOSE; Start 10/09/18 at 12:00 Glucagon (Glucagen) 1 mg Q15M PRN IM DECREASED GLUCOSE; Start 10/09/18 at 12:00 Glucose (Glutose) 15 gm Q15M PRN BUCCAL DECREASED GLUCOSE Last administered on 10/20/18 18:52; Admin Dose 15 GM; Start 10/09/18 at 12:00 Diagnostic Test (Pha) (Accu-Chek) 1 ea AC MEALS AND BEDTIME XX Last administered on 11/05/18 07:25; Admin Dose 1 EA; Start 10/09/18 at 11:00 Aspirin (Aspirin) 81 mg DAILY PO Last administered on 11/05/18 09:45; Admin Dose 81 MG; Start 10/13/18 at 09:00 Albumin Human 100 ml @ 100 mls/hr DURING DIALYSIS PRN IV BLOOD PRESSURE SUPPORT Last administered on 11/01/18 18:32; Admin Dose 100 MLS/HR; Start 10/13/18 at 1 1:30 Magnesium Hydroxide (Milk Of Mag) 30 ml DAILY PRN PO CONSTIPATION; Start 10/16/18 at 06:30 Furosemide (Lasix) 40 mg DAILY PO Last administered on 11/04/18 09:04; Admin Dose 40 MG; Start 10/20/18 at 09:00 Heparin Sodium (Porcine) (Heparin (1000 Units/ml)) 500 unit WITH DIALYSIS HE Last administered on 11/05/18 08:33; Admin Dose 500 UNIT; Start 10/20/18 at 10:00 Heparin Sodium (Porcine) (Heparin (1000 Units/ml)) 1,500 unit WITH DIALYSIS HE Last administered on 11/05/18 08:33; Admin Dose 1,500 UNIT; Start 10/20/18 at 10:00 Ondansetron HCl (Zofran Tab) 4 mg Q6H PRN PO NAUSEA AND/OR VOMITING; Start 10/20/18 at 17:30 Epoetin Jeor-epbx (Retacrit (Esrd)) 10,000 unit MoWeFr@1700 SC Last administered on 11/03/18 18:43; Admin Dose 10,000 UNIT; Start 10/24/18 at 17:00 Guaifenesin/ Dextromethorphan (Robitussin Dm Liquid Cup) 10 ml Q4H PRN PO cough Last administered on 10/25/18 15:49; Admin Dose 10 ML; Start 10/24/18 at 11:00 Alteplase, Recombinant (Cathflo (Activase)) 4 mg MAY REPEAT X1 PRN CATHETER IF CATHETER REMAINS OCCULUDED Last administered on 11/03/18 16:13; Admin Dose 4 MG; Start 10/29/18 at 14:00 Apixaban (Eliquis) 2.5 mg BID PO Last administered on 11/05/18 09:44; Admin Dose 2.5 MG; Start 10/31/18 at 21:00 Insulin Aspart (Novolog Insulin Pen) 7 unit WITH MEALS SC Last administered on 11/05/18 09:48; Admin Dose 7 UNIT; Start 11/01/18 at 11:50 Insulin Glargine (Lantus) 21 units DAILY@0830 SC Last administered on 11/04/18 09:17; Admin Dose 21 UNITS; Start 11/02/18 at 08:30 Famotidine (Pepcid) 10 mg DAILY PO Last administered on 11/05/18 09:44; Admin Dose 10 MG; Start 11/03/18 at 09:00 Lactobacillus Acidophilus/ Rhamnosus (Culturelle) 1 cap BID PO Last a dministered on 11/05/18 09:43; Admin Dose 1 CAP; Start 11/02/18 at 21:00 Escitalopram Oxalate (Lexapro) 5 mg DAILY PO Last administered on 11/05/18 09:44; Admin Dose 5 MG; Start 11/03/18 at 09:00 RAQUEL MCDOWELL MD Nov 05, 2018 10:06
[2018-11-05] MEDS: ALTEPLASE (CATHFLO) 2 MG INJ CATHETER PRN (11:35)
--- NOTE | 2018-11-05 15:07 | PN ---
Date/Time of Note Date/Time of Note DATE: 11/05/18 TIME: 15:06 Assessment/Plan VTE Prophylaxis Risk score (from Nsg)>0 risk: 16 SCD applied (from Nsg): Yes Pharmacological prophylaxis: heparin Lines/Catheters IV Catheter Type (from Nrsg): Mid Line Urinary Cath still in place: No Assessment/Plan Hospital Course Alert, no distress AOx3 RRR Breathing comfortably No RUQ pain, soft nt nd no edema, venous stasis Gangrenous toes 67 yo with numerous comorbidities including dyslipidemia, IDDM, ESRD on HD and severe PVD who is also anticoagulated on Eliquis/Plavix,here with worsening juan pablo ise. Subsequently underwent CABG for severe CAD. HD has been complicated by issues with difficult access as he has extensive venous clots. Permacath placed here no longer functions. Per vascluar surgery, he will require transfer to tertiary center to see if access can be placed. For now has femoral line Cholecystitis: - Symptoms much better. s/p abx ESRD: - HD per renal via femoral access IVC clot: - Eliquis NSTEMI/Multivessel coronary artery disease - s/p LHC 09/30 - s/p CABG 10/07 - Cautiously resume beta blockers. - Anticoag, antiplatelet per CT surgery - Continue statin. Severe acute symptomatic blood loss anemia -Improved with multiple transfusion. 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 -Wound care #Obesity with BMI 36.3 -Weight reduction advised. #Anemia of ESRD -on Epogen with hemodialysis #Debility secondary to comorbidities -Continue PT #Depression -Started Paxil DVT prophylaxis: SCDs PUD prophylaxis: Protonix DC planning: To [facility] Result Diagram: 11/03/18 0731 11/03/18 0535 Results 24hrs Laboratory Tests Test 11/04/18 16:54 11/04/18 20:09 11/05/18 09:42 11/05/18 11:57 Bedside Glucose 85 155 175 138 Subjective 24 Hr Interval Summary Free Text/Dictation No change to clinical status Permacath in femoral is working Discussed with plan to dc to SNF then have IR procedure at [facility] Exam/Review of Systems Exam Vitals Vital Signs Date Temp Pulse Resp B/P (MAP) Pulse Ox O2 O2 Flow FiO2 Time Delivery Rate 11/05/18 80 14:01 11/05/18 98.3 18 101/33 94 11:30 (55) 11/05/18 2.0 09:07 11/05/18 Room Air 08:20 11/03/18 27 02:36 Intake and Output 11/04/18 11/04/18 11/05/18 1515:00 23:00 07:00 IntakeIntake Total 1220 ml 60 ml BalanceBalance 1220 ml 60 ml Results Results 24hrs Laboratory Tests Test 11/04/18 16:54 11/04/18 20:09 11/05/18 09:42 11/05/18 11:57 Bedside Glucose 85 155 175 138 Medications Medication Current Medications Oxycodone/ Acetaminophen (Percocet (5/ 325)) 1 tab Q3H PRN PO PAIN LEVEL 1-5 Last administered on 11/02/18 20:45; Admin Dose 1 TAB; Start 10/07/18 at 21:00 Ondansetron HCl (Zofran Inj) 4 mg Q6H PRN IV NAUSEA AND/OR VOMITING Last administered on 10/21/18at 12:10; Admin Dose 4 MG; Start 10/07/18 at 21:00 Acetaminophen (Tylenol Tab) 650 mg Q3H PRN PO ELEVATED TEMPERATURE Last administered on 11/01/18 04:02; Admin Dose 650 MG; Start 10/07/18 at 21:00 Atorvastatin Calcium (Lipitor) 40 mg HS PO Last administered on 11/04/18 20:10; Admin Dose 40 MG; Start 10/08/18 at 21:00 Insulin Aspart (Novolog Insulin Pen) NOVOLOG *MODERATE* ALGORITHM WITH MEALS BEDTIME SC Last administered on 11/05/18 10:50; Admin Dose 2 UNIT; Start 10/09/18 at 11:30 Glucose (Glutose) 15 gm Q15M PRN PO DECREASED GLUCOSE; Start 10/09/18 at 12:00 Glucose (Glutose) 22.5 gm Q15M PRN PO DECREASED GLUCOSE; Start 10/09/18 at 12:00 Dextrose (D50w Syringe) 25 ml Q15M PRN IV DECREASED GLUCOSE; Start 10/09/18 at 12:00 Dextrose (D50w Syringe) 50 ml Q15M PRN IV DECREASED GLUCOSE; Start 10/09/18 at 12:00 Glucagon (Glucagen) 1 mg Q15M PRN IM DECREASED GLUCOSE; Start 10/09/18 at 12:00 Glucose (Glutose) 15 gm Q15M PRN BUCCAL DECREASED GLUCOSE Last administered on 10/20/18 18:52; Admin Dose 15 GM; Start 10/09/18 at 12:00 Diagnostic Test (Pha) (Accu-Chek) 1 ea AC MEALS AND BEDTIME XX Last ad ministered on 11/05/18 12:00; Admin Dose 1 EA; Start 10/09/18 at 11:00 Aspirin (Aspirin) 81 mg DAILY PO Last administered on 11/05/18 09:45; Admin Dose 81 MG; Start 10/13/18 at 09:00 Albumin Human 100 ml @ 100 mls/hr DURING DIALYSIS PRN IV BLOOD PRESSURE SUPPORT Last administered on 11/01/18 18:32; Admin Dose 100 MLS/HR; Start 10/13/18 at 11:30 Magnesium Hydroxide (Milk Of Mag) 30 ml DAILY PRN PO CONSTIPATION; Start 10/16/18 at 06:30 Heparin Sodium (Porcine) (Heparin (1000 Units/ml)) 500 unit WITH DIALYSIS HE Last administered on 11/05/18 08:33; Admin Dose 500 UNIT; Start 10/20/18 at 1 0:00 Heparin Sodium (Porcine) (Heparin (1000 Units/ml)) 1,500 unit WITH DIALYSIS HE Last administered on 11/05/18 08:33; Admin Dose 1,500 UNIT; Start 10/20/18 at 10:00 Ondansetron HCl (Zofran Tab) 4 mg Q6H PRN PO NAUSEA AND/OR VOMITING; Start 10/20/18 at 17:30 Epoetin Jero-epbx (Retacrit (Esrd)) 10,000 unit MoWeFr@1700 SC Last administered on 11/03/18 18:43; Admin Dose 10,000 UNIT; Start 10/24/18 at 17:00 Guaifenesin/ Dextromethorphan (Robitussin Dm Liquid Cup) 10 ml Q4H PRN PO cough Last administered on 10/25/18 15:49; Admin Dose 10 ML; Start 10/24/18 at 11:00 Alteplase, Recombinant (Cathflo (Activase)) 4 mg MAY REPEAT X1 PRN CATHETER IF CATHETER REMAINS OCCULUDED Last administered on 11/05/18 11:35; Admin Dose 4 MG; Start 10/29/18 at 14:00 Apixaban (Eliquis) 2.5 mg BID PO Last administered on 11/05/18 09:44; Admin Dose 2.5 MG; Start 10/31/18 at 21:00 Insulin Aspart (Novolog Insulin Pen) 7 unit WITH MEALS SC Last administered on 11/05/18 12:03; Admin Dose 7 UNIT; Start 11/01/18 at 11:50 Insulin Glargine (Lantus) 21 units DAILY@0830 SC Last administered on 11/05/18 09:54; Admin Dose 21 UNITS; Start 11/02/18 at 08:30 Famotidine (Pepcid) 10 mg DAILY PO Last administered on 11/05/18 09:44; Admin Dose 10 MG; Start 11/03/18 at 09:00 Lactobacillus Acidophilus/ Rhamnosus (Culturelle) 1 cap BID PO Last administered on 11/05/18 09:43; Admin Dose 1 CAP; Start 11/02/18 at 21:00 Escitalopram Oxalate (Lexapro) 5 mg DAILY PO Last administered on 11/05/18 09:44; Admin Dose 5 MG; Start 11/03/18 at 09:00 Furosemide (Lasix) 20 mg DAILY PO ; Start 11/06/18 at 09:00 PAUL LINDER MD Nov 05, 2018 15:06
[2018-11-05] MEDS: EPOETIN ALFA-EPBX (ESRD) 10,000 UNIT/ML VIAL SC SCH (17:29)
[2018-11-05] MEDS: ATORVASTATIN 40 MG TAB PO SCH (20:41)
[2018-11-06] VITALS (12 sets, daily range): BP systolic 98–129; BP diastolic 43–62; PULSE 55–88; RESP 17–18
[2018-11-06] MEDS: ACCU-CHEK XX SCH ×4 (08:16→20:20)
[2018-11-06] MEDS: LACTOBACILLUS RHAMNOSUS CAP PO SCH ×2 (08:42→20:19)
[2018-11-06] MEDS: FUROSEMIDE 40 MG TAB PO SCH (08:42)
[2018-11-06] MEDS: FAMOTIDINE 20 MG TAB PO SCH (08:43)
[2018-11-06] MEDS: ASPIRIN 81 MG TAB PO SCH (08:43)
[2018-11-06] MEDS: APIXABAN 5 MG TABLET PO SCH ×2 (08:43→20:19)
[2018-11-06] MEDS: ESCITALOPRAM 10 MG TAB PO SCH (08:43)
[2018-11-06] MEDS: BALSAM PERU/CASTOR OIL 60 GM TUBE TOP SCH (08:49)
[2018-11-06] MEDS: INSULIN ASPART [NOVOLOG] 3 ML PEN SC SCH ×7 (08:55→20:13)
[2018-11-06] MEDS: INSULIN GLARGINE [LANTus] (100 UNITS/ML) SYG SC SCH (08:55)
--- NOTE | 2018-11-06 09:35 | CONS ---
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 Now worse and will need TMA Afib/flutter: new onset, rates controlled. Now on Eliquis Cholecystitis: started on antibiotics. Seen on CT. No symptoms or exam findings CAD s/p CABG: CABG x4 10/07/18, ÁLVAREZ to LAD, SVG to ramus, SVG to OM1 sequenced to OM2. Doing well. Extubated 10/08, off pressors NSTEMI: Trop peak 1.1 and trended down. S/p cath 09/30/18 with diffuse multivessel CAD. CABG as above Upper GI bleed: due to anastomotic ulcer seen on EGD 09/26. No bleeding since. Hgb relatively stable. Anemia: due to above. s/p 5 units PRBCs and 2 units intraop. Wenckebach: Mobitz 1. Not on BB. No pauses or high grade block. 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 Unable to place right IJ. Now s/p left femoral permacath 10/24 which clotted but started to work again HTN H/o Billroth Depression: now on meds -if pt needs TMA, he is at intermediate-high risk for surgery but is optimized a s he is s/p revascularization, has preserved EF, and no active CHF or angina. -Eliquis 2.5mg BID per nephrology -antibiotics -ASA 81mg -continue to hold metoprolol as pt has bradycardia -lipitor 40mg -lasix 40mg PO -HD per nephrology Consultation Date/Type/Reason Admit Date/Time September 24, 2018 at 08:08 Initial Consult Date 09/24/18 Type of Consult Cardiology Date/Time of Note DATE: 11/06/18 TIME: 09:33 24 HR Interval Summary Free Text/Dictation Seen by Dr. Mejia. Left foot gangrene worse and will likely need TMA Exam/Review of Systems Vital Signs Vitals Vital Signs Date Temp Pulse Resp B/P (MAP) Pulse Ox O2 O2 Flow FiO2 Time Delivery Rate 11/06/18 97.4 85 18 100/59 98 Room Air 07:59 (73) 11/06/18 2.0 05:00 11/05/18 21 23:48 Intake and Output 11/05/18 11/05/18 11/06/18 1515:00 23:00 07:00 IntakeIntake Total 800 ml OutputOutput Total 1600 ml BalanceBalance -1600 ml 800 ml Exam Constitutional: alert, oriented Psych: no complaints, nl mood/affect Head: normocephalic, atraumatic Neck: supple; No jvd Respiratory: diminished breath sounds; No clear to auscultation Cardiovascular: No regular rate and rhythm, No edema Musculoskeletal: No nl extremities to inspection (left foot gangrene ) Labs Result Diagram: 11/06/18 0634 11/06/18 0634 Results 24hrs Laboratory Tests Test 11/05/18 09:42 11/05/18 11:57 11/05/18 17:27 11/05/18 20:45 Bedside Glucose 175 138 136 140 Test 11/06/18 06:29 11/06/18 06:34 11/06/18 08:06 Magnesium Level 2.2 White Blood Count 10.1 # Red Blood Count 2.89 L Hemoglobin 7.5 L Hematocrit 25.0 L Mean Corpuscular 86.5 Volume Mean Corpuscular 26.0 L Hemoglobin Mean Corpuscular 30.0 L Hemoglobin Concent Red Cell 17.2 H Distribution Width Platelet Count 314 Mean Platelet Volume 10.2 Immature 1.000 H Granulocytes % Neutrophils % 71.9 Lymphocytes % 17.7 Monocytes % 8.4 Eosinophils % 0.7 Basophils % 0.3 Nucleated Red Blood 0.0 Cells % Immature 0.100 H Granulocytes # Neutrophils # 7.3 Lymphocytes # 1.8 Monocytes # 0.9 Eosinophils # 0.1 Basophils # 0.0 Nucleated Red Blood 0.0 Cells # Prothrombin Time 19.7 #H Prothrombin Time 1.5 Ratio INR International 1.66 Normalized Ratio Activated 54.2 H Partial Thromboplast Time Sodium Level 133 L Potassium Level 3.8 Chloride Level 101 Carbon Dioxide Level 22 Anion Gap 10 Blood Urea Nitrogen 49 H Creatinine 6.03 H Est Glomerular 9 L Filtrat Rate mL/min Glucose Level 227 H Calcium Level 7.4 L Bedside Glucose 255 H Medications Medications Current Medications Oxycodone/ Acetaminophen (Percocet (5/ 325)) 1 tab Q3H PRN PO PAIN LEVEL 1-5 Last administered on 11/02/18 20:45; Admin Dose 1 TAB; Start 10/07/18 at 21:00 Ondansetron HCl (Zofran Inj) 4 mg Q6H PRN IV NAUSEA AND/OR VOMITING Last administered on 10/21/18 12:10; Admin Dose 4 MG; Start 10/07/18 at 21:00 Acetaminophen (Tylenol Tab) 650 mg Q3H PRN PO ELEVATED TEMPERATURE Last administered on 11/01/18 04:02; Admin Dose 650 MG; Start 10/07/18 at 21:00 Atorvastatin Calcium (Lipitor) 40 mg HS PO Last administered on 11/05/18 20:41; Admin Dose 40 MG; Start 10/08/18 at 21:00 Insulin Aspart (Novolog Insulin Pen) NOVOLOG *MODERATE* ALGORITHM WITH MEALS BEDTIME SC Last administered on 11/06/18 08:55; Admin Dose 6 UNIT; Start 10/09/18 at 11:30 Glucose (Glutose) 15 gm Q15M PRN PO DECREASED GLUCOSE; Start 10/09/18 at 12:00 Glucose (Glutose) 22.5 gm Q15M PRN PO DECREASED GLUCOSE; Start 10/09/18 at 12:00 Dextrose (D50w Syringe) 25 ml Q15M PRN IV DECREASED GLUCOSE; Start 10/09/18 at 12:00 Dextrose (D50w Syringe) 50 ml Q15M PRN IV DECREASED GLUCOSE; Start 10/09/18 at 12:00 Glucagon (Glucagen) 1 mg Q15M PRN IM DECREASED GLUCOSE; Start 10/09/18 at 12:00 Glucose (Glutose) 15 gm Q15M PRN BUCCAL DECREASED GLUCOSE Last administered on 10/20/18 18:52; Admin Dose 15 GM; Start 10/09/18 at 12:00 Diagnostic Test (Pha) (Accu-Chek) 1 ea AC MEALS AND BEDTIME XX Last administered on 11/06/18 08:16; Admin Dose 1 EA; Start 10/09/18 at 11:00 Aspirin (Aspirin) 81 mg DAILY PO Last administered on 11/06/18 08:43; Admin Do se 81 MG; Start 10/13/18 at 09:00 Albumin Human 100 ml @ 100 mls/hr DURING DIALYSIS PRN IV BLOOD PRESSURE SUPPORT Last administered on 11/01/18 18:32; Admin Dose 100 MLS/HR; Start 10/13/18 at 11:30 Magnesium Hydroxide (Milk Of Mag) 30 ml DAILY PRN PO CONSTIPATION; Start 10/16/18 at 06:30 Heparin Sodium (Porcine) (Heparin (1000 Units/ml)) 500 unit WITH DIALYSIS HE Last administered on 11/05/18 08:33; Admin Dose 500 UNIT; Start 10/20/18 at 10:00 Heparin Sodium (Porcine) (Heparin (1000 Units/ml)) 1,500 unit WITH DIALYSIS HE Last administered on 11/05/18 08:33; Admin Dose 1,500 UNIT; Start 10/20/18 at 10:00 Ondansetron HCl (Zofran Tab) 4 mg Q6H PRN PO NAUSEA AND/OR VOMITING; Start 10/20/18 at 17:30 Epoetin Jero-epbx (Retacrit (Esrd)) 10,000 unit MoWeFr@1700 SC Last administered on 11/05/18 17:29; Admin Dose 10,000 UNIT; Start 10/24/18 at 17:00 Guaifenesin/ Dextromethorphan (Robitussin Dm Liquid Cup) 10 ml Q4H PRN PO cough Last administered on 10/25/18 15:49; Admin Dose 10 ML; Start 10/24/18 at 11:00 Alteplase, Recombinant (Cathflo (Activase)) 4 mg MAY REPEAT X1 PRN CATHETER IF CATHETER REMAINS OCCULUDED Last administered on 11/05/18 11:35; Admin Dose 4 MG; Start 10/29/18 at 14:00 Apixaban (Eliquis) 2.5 mg BID PO Last administered on 11/06/18 08:43; Admin Dose 2.5 MG; Start 10/31/18 at 21:00 Insulin Aspart (Novolog Insulin Pen) 7 unit WITH MEALS SC Last administered on 11/06/18 08:55; Admin Dose 7 UNIT; Start 11/01/18 at 11:50 Insulin Glargine (Lantus) 21 units DAILY@0830 SC Last administered on 11/06/18 08:55; Admin Dose 21 UNITS; Start 11/02/18 at 08:30 Famotidine (Pepcid) 10 mg DAILY PO Last administered on 11/06/18 08:43; Admin Dose 10 MG; Start 11/03/18 at 09:00 Lactobacillus Acidophilus/ Rhamnosus (Culturelle) 1 cap BID PO Last administered on 11/06/18at 08:42; Admin Dose 1 CAP; Start 11/02/18 at 21:00 Escitalopram Oxalate (Lexapro) 5 mg DAILY PO Last administered on 11/06/18at 08:43; Admin Dose 5 MG; Start 11/03/18 at 09:00 Furosemide (Lasix) 20 mg DAILY PO ; Start 11/06/18 at 09:00 LAVON SEE Nov 06, 2018 09:35
--- NOTE | 2018-11-06 10:12 | PN ---
Date/Time of Note Date/Time of Note DATE: 11/06/18 TIME: 10:07 Assessment/Plan Lines/Catheters IV Catheter Type (from Nrsg): Mid Line Pierre in Place (from Nrsg): No Assessment/Plan Chief Complaint/Hosp Course -Bilateral lower extremity atherosclerosis with left lower extremity with left lower extremity gangrene: It seems that the patient's left lower extremity third toe has become dry gangrene and worsening. Unfortunately his first and second toe have also become gangrene with erythema. We are hoping that the patient's lower extremity atherosclerotic disease will not worsen during this period of time. There is concern he may require an amputation should he not improve and develop worsening gangrene. This was discussed in detail with the family given his plethora of medical conditions. -He has developed new cellulitis of the forefoot over the past 24hours associated with pain per 's reporting. Will have our podiatry colleagues evaluate patient as there appears to require an I&D/TMA. From vascular standpoint the patient will likely be limited with intervention given his recent episode of GI bleed and CABG. Will also need to transition him off Eliquis to short acting anticoagulation -Bilateral lower extremity varicose veins and edema: The patient has component of mixed disease (venous insufficiency and arterial sufficiency). At the [facility], we recommend elevation of the bilateral lower extremities while at rest. No further intervention will be needed and can be followed as an outpatient in regards to venous insufficiency. -End-stage renal disease: At the moment the patient's left upper extremity fistula is nonfunctional. 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 I've been asked by our multidisciplinary team to re-evaluate. Upon lower extremity venogram there is large collateralization that has developed with the iliac veins secondary to the infrarenal IVC. I have thoroughly spoken with the moahmud grissom's family and at the bedside regarding further interventions and they understand the full scope of what is involved and limitations at [facility]. Unable to perform multidisciplinary approach for transhepatic catheter intervention and no IR interventionalist available. Further, may be a candidate for azygous catheter placement however unable to perform re-canalization secondary to limitation of our angio suite. As the patient will require advanced intervention for dialysis access will need to be transferred to a tertiary center secondary to limited resources. Our multidisciplinary team has agreed with the plan and involved in the decision. Certified ritual circumciser present. Subjective 24 Hr Interval Summary no new vascular events overnight Exam/Review of Systems Vital Signs Vitals Vital Signs Date Temp Pulse Resp B/P (MAP) Pulse Ox O2 O2 Flow FiO2 Time Delivery Rate 11/13/18 97.9 79 18 122/50 95 07:23 (74) 11/13/18 Nasal 04:36 Cannula 11/12/18 2.0 20:30 11/12/18 21 04:24 Intake and Output 11/12/18 11/12/18 11/13/18 1515:00 23:00 07:00 IntakeIntake Total 240 ml 240 ml 350 ml OutputOutput Total 1000 ml 0 ml BalanceBalance -760 ml 240 ml 350 ml Exam Free Text/Dictation GENERAL: Awake. PULMONARY: Coarse BS bilaterally, CARDIOVASCULAR: S1, S2 present. Dressing intact ABDOMEN: Soft, nontender, nondistended. Bowel sounds positive. Large truncal obesity. EXTREMITIES: Right lower extremity palpable femoral pulse, nonpalpable pedal pulse. Motor, sensory intact. Cap refill 3 to 4 seconds. Presence of varicose veins and large leg. Left lower extremity palpable femoral pulse, nonpalpable pedal pulse. Motor, sensory intact. Cap refill 3 to 4 seconds. 1-3 Third toe gangrene, plantar gangrene developing, Heel gangrene developed. groin catheter intact, new forefoot cellulitis and tenderness Varicose veins and edema of the left lower extremity with presence of mild lipodermatosclerosis. Left upper extremity: Palpable brachial pulse, motor/sensory intact, fistula with bruit and thrill not present Results Result Diagram: 11/13/18 0625 11/13/18 0625 VANIA PEREYRA MD Nov 06, 2018 10:12
--- NOTE | 2018-11-06 12:34 | PN ---
Date/Time of Note Date/Time of Note DATE: 11/06/18 TIME: 12:34 Assessment/Plan VTE Prophylaxis Risk score (from Nsg)>0 risk: 11 SCD applied (from Nsg): Yes Pharmacological prophylaxis: heparin Lines/Catheters IV Catheter Type (from Nrsg): Mid Line Urinary Cath still in place: No Assessment/Plan Hospital Course Alert, no distress AOx3 RRR Breathing comfortably No RUQ pain, soft nt nd no edema, venous stasis Gangrenous toes 67 yo with numerous comorbidities including dyslipidemia, IDDM, ESRD on HD and severe PVD who is also anticoagulated on Eliquis/Plavix,here with worsening juan pablo ise. Subsequently underwent CABG for severe CAD. HD has been complicated by issues with difficult access as he has extensive venous clots. Permacath placed here no longer functions. Per vascluar surgery, he will require transfer to tertiary center to see if access can be placed. For now has femoral line Foot infection: - Podiatry to manage Cholecystitis: - Symptoms much better. s/p abx ESRD: - HD per renal via femoral access IVC clot: - Eliquis NSTEMI/Multivessel coronary artery disease - s/p LHC 09/30 - s/p CABG 10/07 - Cautiously resume beta blockers. - Anticoag, antiplatelet per CT surgery - Continue statin. Severe acute symptomatic blood loss anemia -Improved with multiple transfusion. 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 -Wound care #Obesity with BMI 36.3 -Weight reduction advised. #Anemia of ESRD -on Epogen with hemodialysis #Debility secondary to comorbidities -Continue PT #Depression -Started Paxil DVT prophylaxis: SCDs PUD prophylaxis: Protonix DC planning: To SNF Result Diagram: 11/06/18 0634 11/06/18 0634 Results 24hrs Laboratory Tests Test 11/05/18 17:27 11/05/18 20:45 11/06/18 06:29 11/06/18 06:34 Bedside Glucose 136 140 Magnesium Level 2.2 White Blood Count 10.1 # Red Blood Count 2.89 L Hemoglobin 7.5 L Hematocrit 25.0 L Mean Corpuscular 86.5 Volume Mean Corpuscular 26.0 L Hemoglobin Mean Corpuscular 30.0 L Hemoglobin Concent Red Cell 17.2 H Distribution Width Platelet Count 314 Mean Platelet Volume 10.2 Immature 1.000 H Granulocytes % Neutrophils % 71.9 Lymphocytes % 17.7 Monocytes % 8.4 Eosinophils % 0.7 Basophils % 0.3 Nucleated Red Blood 0.0 Cells % Immature 0.100 H Granulocytes # Neutrophils # 7.3 Lymphocytes # 1.8 Monocytes # 0.9 Eosinophils # 0.1 Basophils # 0.0 Nucleated Red Blood 0.0 Cells # Prothrombin Time 19.7 #H Prothrombin Time 1.5 Ratio INR International 1.66 Normalized Ratio Activated 54.2 H Partial Thromboplast Time Sodium Level 133 L Potassium Level 3.8 Chloride Level 101 Carbon Dioxide Level 22 Anion Gap 10 Blood Urea Nitrogen 49 H Creatinine 6.03 H Est Glomerular 9 L Filtrat Rate mL/min Glucose Level 227 H Calcium Level 7.4 L Test 11/06/18 08:06 11/06/18 11:39 Bedside Glucose 255 H 178 Subjective 24 Hr Interval Summary Free Text/Dictation Awaiting placement Foot looking worse Exam/Review of Systems Exam Vitals Vital Signs Date Temp Pulse Resp B/P (MAP) Pulse Ox O2 O2 Flow FiO2 Time Delivery Rate 11/06/18 88 08:01 11/06/18 Nasal 2.0 08:00 Cannula 11/06/18 97.4 18 100/59 98 07:59 (73) 11/05/18 21 23:48 Intake and Output 11/05/18 11/05/18 11/06/18 1515:00 23:00 07:00 IntakeIntake Total 800 ml OutputOutput Total 1600 ml BalanceBalance -1600 ml 800 ml Results Results 24hrs Laboratory Tests Test 11/05/18 17:27 11/05/18 20:45 11/06/18 06:29 11/06/18 06:34 Bedside Glucose 136 140 Magnesium Level 2.2 White Blood Count 10.1 # Red Blood Count 2.89 L Hemoglobin 7.5 L Hematocrit 25.0 L Mean Corpuscular 86.5 Volume Mean Corpuscular 26.0 L Hemoglobin Mean Corpuscular 30.0 L Hemoglobin Concent Red Cell 17.2 H Distribution Width Platelet Count 314 Mean Platelet Volume 10.2 Immature 1.000 H Granulocytes % Neutrophils % 71.9 Lymphocytes % 17.7 Monocytes % 8.4 Eosinophils % 0.7 Basophils % 0.3 Nucleated Red Blood 0.0 Cells % Immature 0.100 H Granulocytes # Neutrophils # 7.3 Lymphocytes # 1.8 Monocytes # 0.9 Eosinophils # 0.1 Basophils # 0.0 Nucleated Red Blood 0.0 Cells # Prothrombin Time 19.7 #H Prothrombin Time 1.5 Ratio INR International 1.66 Normalized Ratio Activated 54.2 H Partial Thromboplast Time Sodium Level 133 L Potassium Level 3.8 Chloride Level 101 Carbon Dioxide Level 22 Anion Gap 10 Blood Urea Nitrogen 49 H Creatinine 6.03 H Est Glomerular 9 L Filtrat Rate mL/min Glucose Level 227 H Calcium Level 7.4 L Test 11/06/18 08:06 11/06/18 11:39 Bedside Glucose 255 H 178 Medications Medication Current Medications Oxycodone/ Acetaminophen (Percocet (5/ 325)) 1 tab Q3H PRN PO PAIN LEVEL 1-5 Last administered on 11/02/18 20:45; Admin Dose 1 TAB; Start 10/07/18 at 21:00 Ondansetron HCl (Zofran Inj) 4 mg Q6H PRN IV NAUSEA AND/OR VOMITING Last administered on 10/21/18 12:10; Admin Dose 4 MG; Start 10/07/18 at 21:00 Acetaminophen (Tylenol Tab) 650 mg Q3H PRN PO ELEVATED TEMPERATURE Last administered on 11/01/18at 04:02; Admin Dose 650 MG; Start 10/07/18 at 21:00 Atorvastatin Calcium (Lipitor) 40 mg HS PO Last administered on 11/05/18at 20:41; Admin Dose 40 MG; Start 10/08/18 at 21:00 Insulin Aspart (Novolog Insulin Pen) NOVOLOG *MODERATE* ALGORITHM WITH MEALS BEDTIME SC Last administered on 11/06/18 12:28; Admin Dose 2 UNIT; Start 10/09/18 at 11:30 Glucose (Glutose) 15 gm Q15M PRN PO DECREASED GLUCOSE; Start 10/09/18 at 12:00 Glucose (Glutose) 22.5 gm Q15M PRN PO DECREASED GLUCOSE; Start 10/09/18 at 12:00 Dextrose (D50w Syringe) 25 ml Q15M PRN IV DECREASED GLUCOSE; Start 10/09/18 at 12:00 Dextrose (D50w Syringe) 50 ml Q15M PRN IV DECREASED GLUCOSE; Start 10/09/18 at 12:00 Glucagon (Glucagen) 1 mg Q15M PRN IM DECREASED GLUCOSE; Start 10/09/18 at 12:00 Glucose (Glutose) 15 gm Q15M PRN BUCCAL DECREASED GLUCOSE Last administered on 10/20/18 18:52; Admin Dose 15 GM; Start 10/09/18 at 12:00 Diagnostic Test (Pha) (Accu-Chek) 1 ea AC MEALS AND BEDTIME XX Last administered on 11/06/18 12:15; Admin Dose 1 EA; Start 10/09/18 at 11:00 Aspirin (Aspirin) 81 mg DAILY PO Last administered on 11/06/18 08:43; Admin Dose 81 MG; Start 10/13/18 at 09:00 Albumin Human 100 ml @ 100 mls/hr DURING DIALYSIS PRN IV BLOOD PRESSURE SUPPORT Last administered on 11/01/18 18:32; Admin Dose 100 MLS/HR; Start 10/13/18 at 11:30 Magnesium Hydroxide (Milk Of Mag) 30 ml DAILY PRN PO CONSTIPATION; Start 10/16/18 at 06:30 Heparin Sodium (Porcine) (Heparin (1000 Units/ml)) 500 unit WITH DIALYSIS HE Last administered on 11/05/18 08:33; Admin Dose 500 UNIT; Start 10/20/18 at 10:00 Heparin Sodium (Porcine) (Heparin (1000 Units/ml)) 1,500 unit WITH DIALYSIS HE Last administered on 11/05/18 08:33; Admin Dose 1,500 UNIT; Start 10/20/18 at 10:00 Ondansetron HCl (Zofran Tab) 4 mg Q6H PRN PO NAUSEA AND/OR VOMITING; Start 10/20/18 at 17:30 Epoetin Jero-epbx (Retacrit (Esrd)) 10,000 unit MoWeFr@1700 SC Last administered on 11/05/18 17:29; Admin Dose 10,000 UNIT; Start 10/24/18 at 17:00 Guaifenesin/ Dextromethorphan (Robitussin Dm Liquid Cup) 10 ml Q4H PRN PO cough Last administered on 10/25/18 15:49; Admin Dose 10 ML; Start 10/24/18 at 11:00 Alteplase, Recombinant (Cathflo (Activase)) 4 mg MAY REPEAT X1 PRN CATHETER IF CATHETER REMAINS OCCULUDED Last administered on 11/05/18 11:35; Admin Dose 4 MG; Start 10/29/18 at 14:00 Apixaban (Eliquis) 2.5 mg BID PO Last administered on 11/06/18 08:43; Admin Dose 2.5 MG; Start 10/31/18 at 21:00 Insulin Aspart (Novolog Insulin Pen) 7 unit WITH MEALS SC Last administered on 11/06/18 12:29; Admin Dose 7 UNIT; Start 11/01/18 at 11:50 Insulin Glargine (Lantus) 21 units DAILY@0830 SC Last administered on 11/06/18 08:55; Admin Dose 21 UNITS; Start 11/02/18 at 08:30 Famotidine (Pepcid) 10 mg DAILY PO Last administered on 11/06/18 08:43; Admin Dose 10 MG; Start 11/03/18 at 09:00 Lactobacillus Acidophilus/ Rhamnosus (Culturelle) 1 cap BID PO Last administered on 11/06/18 08:42; Admin Dose 1 CAP; Start 11/02/18 at 21:00 Escitalopram Oxalate (Lexapro) 5 mg DAILY PO Last administered on 11/06/18 08:43; Admin Dose 5 MG; Start 11/03/18 at 09:00 Furosemide (Lasix) 20 mg DAILY PO ; Start 11/06/18 at 09:00 PAUL LINDER MD Nov 06, 2018 12:34
--- NOTE | 2018-11-06 14:09 | CONS ---
Assessment/Plan Assessment/Plan Assessment/Plan (Daily) 1. acute Hyperkalemia due to GI bleeding- resolved 2.Acute fluid overload- now resolved 3. acute GI bleeding causing acute blood loss anemia- S/p Status post EGD/colonoscopy 09/27/19 -Anastomosis ulcer -Normal colonoscopy 4. Severe Anemia with Hb 5.8 on admission s/p 5 U PRBC transfusion for GI bleeding during this admission - pt also has anemia of ESRD 5. H/O HTN 6. H/O peripherla vascular disease 7. ESRD on HD -follow up at [facility] for scheduled HD on MWF 8. 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 Unable to place right IJ by IR due to central stenosis. Now s/p left femoral permacath 10/24 but still intermittently getting clotted- Discussed with Dr. Velasco - Recommended for higher level of care for diffficult HD access, will need IR or vascular surgery at [facility] to address HD access establishment due to IVC thrombosis and Central stenosis s/p HD on Saturday 2 L removed - Plan for HD today, , continue Eliquis 2.5 mg PO BID we will keep pt on MWF schedule ( his original schedule)- last 4 sessions HD catheter has worked change lasix to 20mg po daily with holding parameters due to low BP Epogen 19706 units SQ MWF- Hb 8.8 on 11/03/18- no labs since then will follow up Patient seen in collaboration with Dr Joby Tobar. dw staff Consultation Date/Type/Reason Admit Date/Time September 24, 2018 at 08:08 Initial Consult Date 09/24/18 Type of Consult NEPHROLOGY Reason for Consultation TROY Fluid overloaded Date/Time of Note DATE: 11/06/18 TIME: 14:06 24 HR Interval Summary Free Text/Dictation c/o BLE heel wounds afebrile seems comfortable in bed at bed side- all Qs answered dw staff Detailed Summary Eyes: no complaints ENT: no complaints Respiratory: no complaints Cardiovascular: no complaints Gastrointestinal: no complaints Genitourinary: no complaints Musculoskeletal: bone/joint pain, restricted range of motion Skin: other (magalis heel wounds) Exam/Review of Systems Exam Vitals Vital Signs Date Temp Pulse Resp B/P (MAP) Pulse Ox O2 O2 Flow FiO2 Time Delivery Rate 11/06/18 98.6 74 18 129/60 98 Room Air 12:34 (83) 11/06/18 2.0 08:00 11/05/18 21 23:48 Intake and Output 11/05/18 11/05/18 11/06/18 1515:00 23:00 07:00 IntakeIntake Total 800 ml OutputOutput Total 1600 ml BalanceBalance -1600 ml 800 ml Constitutional: alert Psych: nl mood/affect Eyes: nl lids, nl sclera ENMT: nl external ears & nose Neck: non-tender Respiratory: clear to auscultation Cardiovascular: nl pulses, other (s1s2) Gastrointestinal: soft, non-tender Musculoskeletal: joint tenderness, range of motion Skin: other (ble hees wounds) Lymph: nontender Results Result Diagram: 11/06/18 0634 11/06/18 0634 Results 24hrs Laboratory Tests Test 11/05/18 17:27 11/05/18 20:45 11/06/18 06:29 11/06/18 06:34 Bedside Glucose 136 140 Magnesium Level 2.2 White Blood Count 10.1 # Red Blood Count 2.89 L Hemoglobin 7.5 L Hematocrit 25.0 L Mean Corpuscular 86.5 Volume Mean Corpuscular 26.0 L Hemoglobin Mean Corpuscular 30.0 L Hemoglobin Concent Red Cell 17.2 H Distribution Width Platelet Count 314 Mean Platelet Volume 10.2 Immature 1.000 H Granulocytes % Neutrophils % 71.9 Lymphocytes % 17.7 Monocytes % 8.4 Eosinophils % 0.7 Basophils % 0.3 Nucleated Red Blood 0.0 Cells % Immature 0.100 H Granulocytes # Neutrophils # 7.3 Lymphocytes # 1.8 Monocytes # 0.9 Eosinophils # 0.1 Basophils # 0.0 Nucleated Red Blood 0.0 Cells # Prothrombin Time 19.7 #H Prothrombin Time 1.5 Ratio INR International 1.66 Normalized Ratio Activated 54.2 H Partial Thromboplast Time Sodium Level 133 L Potassium Level 3.8 Chloride Level 101 Carbon Dioxide Level 22 Anion Gap 10 Blood Urea Nitrogen 49 H Creatinine 6.03 H Est Glomerular 9 L Filtrat Rate mL/min Glucose Level 227 H Calcium Level 7.4 L Test 11/06/18 08:06 11/06/18 11:39 Bedside Glucose 255 H 178 Medications Medication Current Medications Oxycodone/ Acetaminophen (Percocet (5/ 325)) 1 tab Q3H PRN PO PAIN LEVEL 1-5 Last administered on 11/02/18 20:45; Admin Dose 1 TAB; Start 10/07/18 at 21:00 Ondansetron HCl (Zofran Inj) 4 mg Q6H PRN IV NAUSEA AND/OR VOMITING Last administered on 10/21/18 12:10; Admin Dose 4 MG; Start 10/07/18 at 21:00 Acetaminophen (Tylenol Tab) 650 mg Q3H PRN PO ELEVATED TEMPERATURE Last administered on 11/01/18 04:02; Admin Dose 650 MG; Start 10/07/18 at 21:00 Atorvastatin Calcium (Lipitor) 40 mg HS PO Last administered on 11/05/18 20:41; Admin Dose 40 MG; Start 10/08/18 at 21:00 Insulin Aspart (Novolog Insulin Pen) NOVOLOG *MODERATE* ALGORITHM WITH MEALS BEDTIME SC Last administered on 11/06/18 12:28; Admin Dose 2 UNIT; Start 10/09/18 at 11:30 Glucose (Glutose) 15 gm Q15M PRN PO DECREASED GLUCOSE; Start 10/09/18 at 12:00 Glucose (Glutose) 22.5 gm Q15M PRN PO DECREASED GLUCOSE; Start 10/09/18 at 12:00 Dextrose (D50w Syringe) 25 ml Q15M PRN IV DECREASED GLUCOSE; Start 10/09/18 at 12:00 Dextrose (D50w Syringe) 50 ml Q15M PRN IV DECREASED GLUCOSE; Start 10/09/18 at 12:00 Glucagon (Glucagen) 1 mg Q15M PRN IM DECREASED GLUCOSE; Start 10/09/18 at 12:00 Glucose (Glutose) 15 gm Q15M PRN BUCCAL DECREASED GLUCOSE Last administered on 10/20/18 18:52; Admin Dose 15 GM; Start 10/09/18 at 12:00 Diagnostic Test (Pha) (Accu-Chek) 1 ea AC MEALS AND BEDTIME XX Last administered on 11/06/18 12:15; Admin Dose 1 EA; Start 10/09/18 at 11:00 Aspirin (Aspirin) 81 mg DAILY PO Last administered on 11/06/18 08:43; Admin Dose 81 MG; Start 10/13/18 at 09:00 Albumin Human 100 ml @ 100 mls/hr DURING DIALYSIS PRN IV BLOOD PRESSURE SUPPORT Last administered on 11/01/18 18:32; Admin Dose 100 MLS/HR; Start 10/13/18 at 11:30 Magnesium Hydroxide (Milk Of Mag) 30 ml DAILY PRN PO CONSTIPATION; Start 10/16/18 at 06:30 Heparin Sodium (Porcine) (Heparin (1000 Units/ml)) 500 unit WITH DIALYSIS HE Last administered on 11/05/18 08:33; Admin Dose 500 UNIT; Start 10/20/18 at 10:00 Heparin Sodium (Porcine) (Heparin (1000 Units/ml)) 1,500 unit WITH DIALYSIS HE Last administered on 11/05/18 08:33; Admin Dose 1,500 UNIT; Start 10/20/18 at 10:00 Ondansetron HCl (Zofran Tab) 4 mg Q6H PRN PO NAUSEA AND/OR VOMITING; Start 10/20/18 at 17:30 Epoetin Jero-epbx (Retacrit (Esrd)) 10,000 unit MoWeFr@1700 SC Last admi nistered on 11/05/18 17:29; Admin Dose 10,000 UNIT; Start 10/24/18 at 17:00 Guaifenesin/ Dextromethorphan (Robitussin Dm Liquid Cup) 10 ml Q4H PRN PO cough Last administered on 10/25/18 15:49; Admin Dose 10 ML; Start 10/24/18 at 11:00 Alteplase, Recombinant (Cathflo (Activase)) 4 mg MAY REPEAT X1 PRN CATHETER IF CATHETER REMAINS OCCULUDED Last administered on 11/05/18 11:35; Admin Dose 4 MG; Start 10/29/18 at 14:00 Apixaban (Eliquis) 2.5 mg BID PO Last administered on 11/06/18 08:43; Admin D ose 2.5 MG; Start 10/31/18 at 21:00 Insulin Aspart (Novolog Insulin Pen) 7 unit WITH MEALS SC Last administered on 11/06/18 12:29; Admin Dose 7 UNIT; Start 11/01/18 at 11:50 Insulin Glargine (Lantus) 21 units DAILY@0830 SC Last administered on 11/06/18 08:55; Admin Dose 21 UNITS; Start 11/02/18 at 08:30 Famotidine (Pepcid) 10 mg DAILY PO Last administered on 11/06/18 08:43; Admin Dose 10 MG; Start 11/03/18 at 09:00 Lactobacillus Acidophilus/ Rhamnosus (Culturelle) 1 cap BID PO Last administ ered on 11/06/18at 08:42; Admin Dose 1 CAP; Start 11/02/18 at 21:00 Escitalopram Oxalate (Lexapro) 5 mg DAILY PO Last administered on 11/06/18 08:43; Admin Dose 5 MG; Start 11/03/18 at 09:00 Furosemide (Lasix) 20 mg DAILY PO ; Start 11/06/18 at 09:00 CATARINA GONCALVES Nov 06, 2018 14:09
[2018-11-06] MEDS ORDERED: VANCOMYCIN 500 MG (PMX) 100 ML IVPB SCH (18:00)
[2018-11-06] MEDS: PIPER-TAZO 2.25 GM (PMX) 50 ML IVPB SCH (18:02)
--- NOTE | 2018-11-06 18:18 | CONS ---
Consult Date/Type/Reason Admit Date/Time September 24, 2018 at 08:08 Initial Consult Date 10/01/18 Date/Time of Note DATE: 11/06/18 TIME: 18:01 Subjective Patient seen today for follow up of left foot gangrene. Patient has had dry gangrene since admission. Unfortunately, it seems like he gangrene has progres sed and he now has abscess formation plantar aspect of left foot and also on the dorsal aspect 3rd interspace. He has no elevated WBC, no fevers, chills, nausea or vomiting. Objective Vitals Vital Signs Date Temp Pulse Resp B/P (MAP) Pulse Ox O2 O2 Flow FiO2 Time Delivery Rate 11/06/18 97.6 55 18 122/62 98 Room Air 15:16 (82) 11/06/18 2.0 08:00 11/05/18 21 23:48 Intake and Output 11/05/18 11/05/18 11/06/18 1515:00 23:00 07:00 IntakeIntake Total 800 ml OutputOutput Total 1600 ml BalanceBalance -1600 ml 800 ml Exam Left foot wet gangrene of 2nd, 3rd and 4th digit. Abscess formation plantar aspect of left foot medial arch. Erythema dorsal left foot noted midfoot area. Results/Medications Result Diagram: 11/06/18 0634 11/06/18 0634 Results 24 hrs Laboratory Tests Test 11/05/18 20:45 11/06/18 06:29 11/06/18 06:34 11/06/18 08:06 Bedside Glucose 140 255 H Magnesium Level 2.2 White Blood Count 10.1 # Red Blood Count 2.89 L Hemoglobin 7.5 L Hematocrit 25.0 L Mean Corpuscular 86.5 Volume Mean Corpuscular 26.0 L Hemoglobin Mean Corpuscular 30.0 L Hemoglobin Concent Red Cell 17.2 H Distribution Width Platelet Count 314 Mean Platelet Volume 10.2 Immature 1.000 H Granulocytes % Neutrophils % 71.9 Lymphocytes % 17.7 Monocytes % 8.4 Eosinophils % 0.7 Basophils % 0.3 Nucleated Red Blood 0.0 Cells % Immature 0.100 H Granulocytes # Neutrophils # 7.3 Lymphocytes # 1.8 Monocytes # 0.9 Eosinophils # 0.1 Basophils # 0.0 Nucleated Red Blood 0.0 Cells # Prothrombin Time 19.7 #H Prothrombin Time 1.5 Ratio INR International 1.66 Normalized Ratio Activated 54.2 H Partial Thromboplast Time Sodium Level 133 L Potassium Level 3.8 Chloride Level 101 Carbon Dioxide Level 22 Anion Gap 10 Blood Urea Nitrogen 49 H Creatinine 6.03 H Est Glomerular 9 L Filtrat Rate mL/min Glucose Level 227 H Calcium Level 7.4 L Test 11/06/18 11:39 11/06/18 17:32 Bedside Glucose 178 86 Home Meds Discontinued Reported Medications Clopidogrel Bisulfate (Clopidogrel) 75 Mg Tablet, 75 MG PO DAILY, #30 TAB 09/24/18 Ezetimibe* (Zetia*) 10 Mg Tablet, 10 MG PO DAILY, TAB 08/29/18 Insulin Lispro (Humalog Kwikpen U-100) 100 Unit/1 Ml Insuln.pen, 0 SQ SLIDING SCALE, EA 08/28/18 Insulin Glargine* (Lantus*) 100 Unit/Ml Soln, 0 SC QHS, #1 VIAL 45-52 UNITS 08/28/18 Metolazone* (Metolazone*) 5 Mg Tablet, 10 MG PO BID, TAB 08/28/18 Multivit/Ca Carb/B Cmplx/Fa* (Isabel-Brenda*) 1 Tab Tab, 1 TAB PO DAILY, TAB 08/28/18 Furosemide* (Furosemide*) 80 Mg Tablet, 160 MG PO BID, #60 TAB 08/28/18 Folic Acid* (Folic Acid*) 1 Mg Tablet, 1 MG PO DAILY, TAB 08/28/18 Apixaban* (Eliquis*) 5 Mg Tablet, 5 MG PO BID, TAB 08/28/18 Sevelamer Carbonate* (Renvela*) 800 Mg Tablet, 0.8 GM PO WITH MEALS, TAB 08/28/18 Medications Current Medications Oxycodone/ Acetaminophen (Percocet (5/ 325)) 1 tab Q3H PRN PO PAIN LEVEL 1-5 L ast administered on 11/02/18at 20:45; Admin Dose 1 TAB; Start 10/07/18 at 21:00 Ondansetron HCl (Zofran Inj) 4 mg Q6H PRN IV NAUSEA AND/OR VOMITING Last administered on 10/21/18at 12:10; Admin Dose 4 MG; Start 10/07/18 at 21:00 Acetaminophen (Tylenol Tab) 650 mg Q3H PRN PO ELEVATED TEMPERATURE Last a dministered on 11/01/18 04:02; Admin Dose 650 MG; Start 10/07/18 at 21:00 Atorvastatin Calcium (Lipitor) 40 mg HS PO Last administered on 11/05/18 20:41; Admin Dose 40 MG; Start 10/08/18 at 21:00 Insulin Aspart (Novolog Insulin Pen) NOVOLOG *MODERATE* ALGORITHM WITH MEALS BEDTIME SC Last administered on 11/06/18 12:28; Admin Dose 2 UNIT; Start 10/09/18 at 11:30 Glucose (Glutose) 15 gm Q15M PRN PO DECREASED GLUCOSE; Start 10/09/18 at 12:00 Glucose (Glutose) 22.5 gm Q15M PRN PO DECREASED GLUCOSE; Start 10/09/18 at 12:00 Dextrose (D50w Syringe) 25 ml Q15M PRN IV DECREASED GLUCOSE; Start 10/09/18 at 12:00 Dextrose (D50w Syringe) 50 ml Q15M PRN IV DECREASED GLUCOSE; Start 10/09/18 at 12:00 Glucagon (Glucagen) 1 mg Q15M PRN IM DECREASED GLUCOSE; Start 10/09/18 at 12:00 Glucose (Glutose) 15 gm Q15M PRN BUCCAL DECREASED GLUCOSE Last administered on 10/20/18 18:52; Admin Dose 15 GM; Start 10/09/18 at 12:00 Diagnostic Test (Pha) (Accu-Chek) 1 ea AC MEALS AND BEDTIME XX Last adminis tered on 11/06/18 12:15; Admin Dose 1 EA; Start 10/09/18 at 11:00 Aspirin (Aspirin) 81 mg DAILY PO Last administered on 11/06/18 08:43; Admin Dose 81 MG; Start 10/13/18 at 09:00 Albumin Human 100 ml @ 100 mls/hr DURING DIALYSIS PRN IV BLOOD PRESSURE SUPPORT Last administered on 11/01/18 18:32; Admin Dose 100 MLS/HR; Start 10/13/18 at 11:30 Magnesium Hydroxide (Milk Of Mag) 30 ml DAILY PRN PO CONSTIPATION; Start 10/16/18 at 06:30 Heparin Sodium (Porcine) (Heparin (1000 Units/ml)) 500 unit WITH DIALYSIS HE Last administered on 11/05/18 08:33; Admin Dose 500 UNIT; Start 10/20/18 at 10:00 Heparin Sodium (Porcine) (Heparin (1000 Units/ml)) 1,500 unit WITH DIALYSIS HE Last administered on 11/05/18 08:33; Admin Dose 1,500 UNIT; Start 10/20/18 at 10:00 Ondansetron HCl (Zofran Tab) 4 mg Q6H PRN PO NAUSEA AND/OR VOMITING; Start 10/20/18 at 17:30 Epoetin Jero-epbx (Retacrit (Esrd)) 10,000 unit MoWeFr@1700 SC Last administered on 11/05/18 17:29; Admin Dose 10,000 UNIT; Start 10/24/18 at 17:00 Guaifenesin/ Dextromethorphan (Robitussin Dm Liquid Cup) 10 ml Q4H PRN PO cough Last administered on 10/25/18 15:49; Admin Dose 10 ML; Start 10/24/18 at 11:00 Alteplase, Recombinant (Cathflo (Activase)) 4 mg MAY REPEAT X1 PRN CATHETER IF CATHETER REMAINS OCCULUDED Last administered on 11/05/18 11:35; Admin Dose 4 MG; Start 10/29/18 at 14:00 Apixaban (Eliquis) 2.5 mg BID PO Last administered on 11/06/18 08:43; Admin Dose 2.5 MG; Start 10/31/18 at 21:00 Insulin Aspart (Novolog Insulin Pen) 7 unit WITH MEALS SC Last administered on 11/06/18 12:29; Admin Dose 7 UNIT; Start 11/01/18 at 11:50 Insulin Glargine (Lantus) 21 units DAILY@0830 SC Last administered on 11/06/18 08:55; Admin Dose 21 UNITS; Start 11/02/18 at 08:30 Famotidine (Pepcid) 10 mg DAILY PO Last administered on 11/06/18 08:43; Admin Dose 10 MG; Start 11/03/18 at 09:00 Lactobacillus Acidophilus/ Rhamnosus (Culturelle) 1 cap BID PO Last administered on 11/06/18 08:42; Admin Dose 1 CAP; Start 11/02/18 at 21:00 Escitalopram Oxalate (Lexapro) 5 mg DAILY PO Last administered on 11/06/18 08:43; Admin Dose 5 MG; Start 11/03/18 at 09:00 Furosemide (Lasix) 20 mg DAILY PO ; Start 11/06/18 at 09:00 Assessment/Plan Assessment/Plan (Daily) 67 yo male with multiple medical problems with left foot wet gangrene and abscess formation. -patient and were advised about condition in detail. Left foot incision and drainage of abscess recommended. All risks were discussed. Patient signed informed consent and witnessed by nursing staff. Procedure: Left foot ankle block using 10 cc Lidocaine 2% plain. Left foot incision and drainage of medial arch performed and dorsal left foot 4th interspace performed. About 5 cc of purulent drainage noted. Deep cultures were obtained and sent for aerobic and anaerobic cultures. All necrotic tissue was removed from the dorsal foot plantar aspect and 4th interspace. No bleeding was noted. Area flushed with normal saline mixed with betadine. Wounds were packed with betadine soaked gauze. Recommendations: -Patient to start on IV vanco and Zosyn - I spoke to and daughter over the phone in regards to condition. At this time given wet gangrene, I recommend further OR debridement. At this time open TMA was recommended. Patient, and daughter were advised about all risks of procedure such as bleeding, loss of limb or life. Furthermore, given there is lack of blood flow, open TMA might lead to further necrosis of left foot which might lead to further debridement or possibly below knee amputation. Patient, and daughter understand all risks and would like to pursue. -Case was also discussed with Vascular surgeon Dr. Mejia. -Patient to remain NPO after midnight. -Plan for OR tomorrow. PUSHPA WALL DPM Nov 06, 2018 18:15
[2018-11-06] MEDS ORDERED: VANCOMYCIN HCL 1.5 GM in SOD CHLORIDE 0.9% 250 ML IVPB SCH (20:00)
[2018-11-06] MEDS: ATORVASTATIN 40 MG TAB PO SCH (20:19)
[2018-11-06] MEDS ORDERED: VANCOMYCIN RANDOM LEVEL XX ONE (22:30)
[2018-11-07] VITALS (40 sets, daily range): BP systolic 80–140; BP diastolic 18–78; PULSE 70–111; RESP 14–22
[2018-11-07] MEDS: PIPER-TAZO 2.25 GM (PMX) 50 ML IVPB SCH ×4 (00:25→23:46)
--- NOTE | 2018-11-07 03:43 | CONS ---
Assessment/Plan Assessment/Plan Assessment/Plan (Daily) 1. acute Hyperkalemia due to GI bleeding- resolved 2.Acute fluid overload- now resolved 3. acute GI bleeding causing acute blood loss anemia- S/p Status post EGD/colonoscopy 09/27/19 -Anastomosis ulcer -Normal colonoscopy 4. Severe Anemia with Hb 5.8 on admission s/p 5 U PRBC transfusion for GI ble eding during this admission - pt also has anemia of ESRD 5. H/O HTN 6. H/O peripherla vascular disease 7. [place] [facility] [place]. 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 Unable to place right IJ by IR due to central stenosis. Now s/p left femoral permacath 10/24 but still intermittently getting clotted- Discussed with Dr. Velasco - Recommended for higher level of care for diffficult HD access, will need IR or vascular surgery at [facility]iary center to address HD access establishment due to IVC thrombosis and Central stenosis s/p HD on Saturday 2 L removed - Plan for HD today, , continue Eliquis 2.5 mg PO BID we will keep pt on MWF schedule ( his original schedule)- last 4 sessions HD catheter has worked change lasix to 20mg po daily with holding parameters due to low BP Epogen 21555 units SQ MWF- Hb 8.8 on 11/03/18- no labs since then will follow up Patient seen in collaboration with Dr Tobar Consultation Date/Type/Reason Admit Date/Time September 24, 2018 at 08:08 Initial Consult Date 09/24/18 Type of Consult NEPHRO Reason for Consultation ESRD on HD Date/Time of Note DATE: 11/07/18 TIME: 03:43 24 HR Interval Summary Free Text/Dictation scheduled for LE amputation today NAD afebrile seems comfortable dw staff Detailed Summary Eyes: no complaints ENT: no complaints Respiratory: no complaints Cardiovascular: no complaints Gastrointestinal: no complaints Genitourinary: no complaints Musculoskeletal: bone/joint pain, restricted range of motion Skin: other Neurologic: no complaints Endocrine: no complaints Lymphatic: no complaints Psychological: nl mood/affect Exam/Review of Systems Exam Vitals Vital Signs Date Temp Pulse Resp B/P (MAP) Pulse Ox O2 O2 Flow FiO2 Time Delivery Rate 11/07/18 78 00:00 11/06/18 98.4 17 114/49 96 23:33 (70) 11/06/18 2.0 16:33 11/06/18 Room Air 15:16 11/05/18 21 23:48 Intake and Output 11/06/18 11/06/18 11/07/18 1515:00 23:00 07:00 IntakeIntake Total 100 ml 750 ml BalanceBalance 100 ml 750 ml Constitutional: alert, oriented Psych: nl mood/affect Eyes: nl lids ENMT: nl external ears & nose Neck: non-tender Respiratory: clear to auscultation Cardiovascular: nl pulses, other (s1s2) Gastrointestinal: soft, non-tender Musculoskeletal: joint tenderness, range of motion Extremities: edema 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: nl speech, other (alert/reponsive) Lymph: nontender Results Result Diagram: 11/06/18 0634 11/06/1834 Results 24hrs Laboratory Tests Test 11/06/18 06:29 11/06/18 06:34 11/06/18 08:06 11/06/18 11:39 Magnesium Level 2.2 White Blood Count 10.1 # Red Blood Count 2.89 L Hemoglobin 7.5 L Hematocrit 25.0 L Mean Corpuscular 86.5 Volume Mean Corpuscular 26.0 L Hemoglobin Mean Corpuscular 30.0 L Hemoglobin Concent Red Cell 17.2 H Distribution Width Platelet Count 314 Mean Platelet Volume 10.2 Immature 1.000 H Granulocytes % Neutrophils % 71.9 Lymphocytes % 17.7 Monocytes % 8.4 Eosinophils % 0.7 Basophils % 0.3 Nucleated Red Blood 0.0 Cells % Immature 0.100 H Granulocytes # Neutrophils # 7.3 Lymphocytes # 1.8 Monocytes # 0.9 Eosinophils # 0.1 Basophils # 0.0 Nucleated Red Blood 0.0 Cells # Prothrombin Time 19.7 #H Prothrombin Time 1.5 Ratio INR International 1.66 Normalized Ratio Activated 54.2 H Partial Thromboplast Time Sodium Level 133 L Potassium Level 3.8 Chloride Level 101 Carbon Dioxide Level 22 Anion Gap 10 Blood Urea Nitrogen 49 H Creatinine 6.03 H Est Glomerular 9 L Filtrat Rate mL/min Glucose Level 227 H Calcium Level 7.4 L Bedside Glucose 255 H 178 Test 11/06/18 17:32 11/06/18 20:12 Bedside Glucose 86 153 Medications Medication Current Medications Oxycodone/ Acetaminophen (Percocet (5/ 325)) 1 tab Q3H PRN PO PAIN LEVEL 1-5 Last administered on 11/02/18 20:45; Admin Dose 1 TAB; Start 10/07/18 at 21:00 Ondansetron HCl (Zofran Inj) 4 mg Q6H PRN IV NAUSEA AND/OR VOMITING Last administered on 10/21/18 12:10; Admin Dose 4 MG; Start 10/07/18 at 21:00 Acetaminophen (Tylenol Tab) 650 mg Q3H PRN PO ELEVATED TEMPERATURE Last administered on 11/01/18 04:02; Admin Dose 650 MG; Start 10/07/18 at 21:00 Atorvastatin Calcium (Lipitor) 40 mg HS PO Last administered on 11/06/18 20:19; Admin Dose 40 MG; Start 10/08/18 at 21:00 Insulin Aspart (Novolog Insulin Pen) NOVOLOG *MODERATE* ALGORITHM WITH MEALS BEDTIME SC Last administered on 11/06/18 12:28; Admin Dose 2 UNIT; Start 10/09/18 at 11:30 Glucose (Glutose) 15 gm Q15M PRN PO DECREASED GLUCOSE; Start 10/09/18 at 12:00 Glucose (Glutose) 22.5 gm Q15M PRN PO DECREASED GLUCOSE; Start 10/09/18 at 12:00 Dextrose (D50w Syringe) 25 ml Q15M PRN IV DECREASED GLUCOSE; Start 10/09/18 at 12:00 Dextrose (D50w Syringe) 50 ml Q15M PRN IV DECREASED GLUCOSE; Start 10/09/18 at 12:00 Glucagon (Glucagen) 1 mg Q15M PRN IM DECREASED GLUCOSE; Start 10/09/18 at 12:00 Glucose (Glutose) 15 gm Q15M PRN BUCCAL DECREASED GLUCOSE Last administered on 10/20/18 18:52; Admin Dose 15 GM; Start 10/09/18 at 12:00 Diagnostic Test (Pha) (Accu-Chek) 1 ea AC MEALS AND BEDTIME XX Last administered on 11/06/18 20:20; Admin Dose 1 EA; Start 10/09/18 at 11:00 Aspirin (Aspirin) 81 mg DAILY PO Last administered on 11/06/18 08:43; Admin Dose 81 MG; Start 10/13/18 at 09:00 Albumin Human 100 ml @ 100 mls/hr DURING DIALYSIS PRN IV BLOOD PRESSURE SUPPORT Last administered on 11/01/18 18:32; Admin Dose 100 MLS/HR; Start 10/13/18 at 11:30 Magnesium Hydroxide (Milk Of Mag) 30 ml DAILY PRN PO CONSTIPATION; Start 10/16/18 at 06:30 Heparin Sodium (Porcine) (Heparin (1000 Units/ml)) 500 unit WITH DIALYSIS HE Last administered on 11/05/18 08:33; Admin Dose 500 UNIT; Start 10/20/18 at 10:00 Heparin Sodium (Porcine) (Heparin (1000 Units/ml)) 1,500 unit WITH DIALYSIS HE Last administered on 11/05/18 08:33; Admin Dose 1,500 UNIT; Start 10/20/18 at 10:00 Ondansetron HCl (Zofran Tab) 4 mg Q6H PRN PO NAUSEA AND/OR VOMITING; Start 10/20/18 at 17:30 Epoetin Jero-epbx (Retacrit (Esrd)) 10,000 unit MoWeFr@1700 SC Last administere d on 11/05/18 17:29; Admin Dose 10,000 UNIT; Start 10/24/18 at 17:00 Guaifenesin/ Dextromethorphan (Robitussin Dm Liquid Cup) 10 ml Q4H PRN PO cough Last administered on 10/25/18 15:49; Admin Dose 10 ML; Start 10/24/18 at 11:00 Alteplase, Recombinant (Cathflo (Activase)) 4 mg MAY REPEAT X1 PRN CATHETER IF CATHETER REMAINS OCCULUDED Last administered on 11/05/18 11:35; Admin Dose 4 MG; Start 10/29/18 at 14:00 Apixaban (Eliquis) 2.5 mg BID PO Last administered on 11/06/18 20:19; Admin Dose 2.5 MG; Start 10/31/18 at 21:00 Insulin Aspart (Novolog Insulin Pen) 7 unit WITH MEALS SC Last administered on 11/06/18 12:29; Admin Dose 7 UNIT; Start 11/01/18 at 11:50 Insulin Glargine (Lantus) 21 units DAILY@0830 SC Last administered on 11/06/18at 08:55; Admin Dose 21 UNITS; Start 11/02/18 at 08:30 Famotidine (Pepcid) 10 mg DAILY PO Last administered on 11/06/18at 08:43; Admin Dose 10 MG; Start 11/03/18 at 09:00 Lactobacillus Acidophilus/ Rhamnosus (Culturelle) 1 cap BID PO Last administered on 11/06/18at 20:19; Admin Dose 1 CAP; Start 11/02/18 at 21:00 Escitalopram Oxalate (Lexapro) 5 mg DAILY PO Last administered on 11/06/18at 08:43; Admin Dose 5 MG; Start 11/03/18 at 09:00 Furosemide (Lasix) 20 mg DAILY PO ; Start 11/06/18 at 09:00 Piperacillin Sod/ Tazobactam Sod 50 ml @ 100 mls/hr Q8 IVPB Last administered on 11/07/18at 00:25; Admin Dose 100 MLS/HR; Start 11/06/18 at 18:00 Miscellaneous Information (*Order Clarification Bulletin) MEDICATION REQUIRES CLARIFICATI... Q8H XX ; Start 11/06/18 at 21:30 Miscellaneous Information (*Rx Drug Level Order Reminder*) VANCOMYCIN RANDOM ON W... ONCE ONCE XX ; Start 11/08/18 at 06:00; Stop 11/08/18 at 06:01 CATARINA GONCALVES Nov 07, 2018 03:43
[2018-11-07] MEDS: ACCU-CHEK XX SCH ×4 (07:25→21:50)
[2018-11-07] MEDS: INSULIN ASPART [NOVOLOG] 3 ML PEN SC SCH ×7 (07:55→20:36)
[2018-11-07] MEDS ORDERED: VANCOMYCIN IV PER PHARMACY XX SCH (08:00)
[2018-11-07] MEDS: LACTOBACILLUS RHAMNOSUS CAP PO SCH ×2 (08:48→20:36)
[2018-11-07] MEDS: ESCITALOPRAM 10 MG TAB PO SCH (08:48)
[2018-11-07] MEDS: FUROSEMIDE 40 MG TAB PO SCH (08:49)
[2018-11-07] MEDS: ASPIRIN 81 MG TAB PO SCH ×2 (08:49→09:00)
[2018-11-07] MEDS: FAMOTIDINE 20 MG TAB PO SCH (08:49)
[2018-11-07] MEDS: INSULIN GLARGINE [LANTus] (100 UNITS/ML) SYG SC SCH (08:55)
[2018-11-07] MEDS: BALSAM PERU/CASTOR OIL 60 GM TUBE TOP SCH (09:01)
--- NOTE | 2018-11-07 09:26 | CONS ---
Assessment/Plan Assessment/Plan Hospital Course (Demo Recall) 67 yo male with multiple medical problems including DM, ESRD, PVD and now with wet gangrene of left foot with abscess formation in need for urgent surgical intervention. -Patient and were advised about condition. Patient's left foot s/p debridement, however, there continues to be necrotic tissue, minimal drainage for dorsal aspect left foot 4th interspace. Patient would need formal OR debridement (open TMA) today urgently given wet gangrene and abscess formation to resolve the infection. Patient and were advised about the urgent need for this procedure. All risks of procedure were discussed including but not limited to: bleeding, further need for surgery, further gangrene changes of left foot, loss of limb or life. Patient and understand all above risks and benefits. -Patient to hold of on Dialysis till after schedule procedure. -Patient needs to continue with current antibiotics, wound cultures are pending. -Patient would benefit from formal ID consult. -Further vascular intervention per Dr. Mejia. Consultation Date/Type/Reason Admit Date/Time September 24, 2018 at 08:08 Initial Consult Date 10/01/18 Date/Time of Note DATE: 11/07/18 TIME: 09:14 24 HR Interval Summary Free Text/Dictation Patient seen bedside s/p bedside I&D yesterday for wet gangrene with abscess formation. Patient is currently NPO. He is now on Vanco and Zosyn. In no acute distress. Denies any fevers, chills, nausea or vomiting. Exam/Review of Systems Exam Vitals Vital Signs Date Temp Pulse Resp B/P (MAP) Pulse Ox O2 O2 Flow FiO2 Time Delivery Rate 11/07/18 71 08:16 11/07/18 97.7 18 138/63 98 Nasal 07:24 (88) Cannula 11/07/18 2.0 06:26 11/05/18 21 23:48 Intake and Output 11/06/18 11/06/18 11/07/18 1515:00 23:00 07:00 IntakeIntake Total 100 ml 750 ml 200 ml BalanceBalance 100 ml 750 ml 200 ml Exam Left foot s/p debridement for abscess formation mid-arch area, gangrene of 1st, 2nd, 3rd and 4th digit wet at this time. Minimal drainage from dorsal 4th interspace. Erythema left foot midfoot area. Results Result Diagram: 11/06/18 0634 11/06/18 0634 Results 24hrs Laboratory Tests Test 11/06/18 11:39 11/06/18 17:32 11/06/18 20:12 11/07/18 07:57 Bedside Glucose 178 86 153 209 Imaging Imaging Left foot x-rays reviewed. Possible abscess formation dorsal left midfoot area. Soft tissue gas can not be ruled out. Medications Medication Current Medications Oxycodone/ Acetaminophen (Percocet (5/ 325)) 1 tab Q3H PRN PO PAIN LEVEL 1-5 Last administered on 11/02/18at 20:45; Admin Dose 1 TAB; Start 10/07/18 at 21:00 Ondansetron HCl (Zofran Inj) 4 mg Q6H PRN IV NAUSEA AND/OR VOMITING Last administered on 10/21/18 12:10; Admin Dose 4 MG; Start 10/07/18 at 21:00 Acetaminophen (Tylenol Tab) 650 mg Q3H PRN PO ELEVATED TEMPERATURE Last administered on 11/01/18 04:02; Admin Dose 650 MG; Start 10/07/18 at 21:00 Atorvastatin Calcium (Lipitor) 40 mg HS PO Last administered on 11/06/18 20:19; Admin Dose 40 MG; Start 10/08/18 at 21:00 Insulin Aspart (Novolog Insulin Pen) NOVOLOG *MODERATE* ALGORITHM WITH MEALS BEDTIME SC Last administered on 11/06/18at 12:28; Admin Dose 2 UNIT; Start 10/09/18 at 11:30 Glucose (Glutose) 15 gm Q15M PRN PO DECREASED GLUCOSE; Start 10/09/18 at 12:00 Glucose (Glutose) 22.5 gm Q15M PRN PO DECREASED GLUCOSE; Start 10/09/18 at 12:00 Dextrose (D50w Syringe) 25 ml Q15M PRN IV DECREASED GLUCOSE; Start 10/09/18 at 12:00 Dextrose (D50w Syringe) 50 ml Q15M PRN IV DECREASED GLUCOSE; Start 10/09/18 at 12:00 Glucagon (Glucagen) 1 mg Q15M PRN IM DECREASED GLUCOSE; Start 10/09/18 at 12:00 Glucose (Glutose) 15 gm Q15M PRN BUCCAL DECREASED GLUCOSE Last administered on 10/20/18 18:52; Admin Dose 15 GM; Start 10/09/18 at 12:00 Diagnostic Test (Pha) (Accu-Chek) 1 ea AC MEALS AND BEDTIME XX Last administered on 11/06/18 20:20; Admin Dose 1 EA; Start 10/09/18 at 11:00 Aspirin (Aspirin) 81 mg DAILY PO Last administered on 11/06/18 08:43; Admin Dose 81 MG; Start 10/13/18 at 09:00 Albumin Human 100 ml @ 100 mls/hr DURING DIALYSIS PRN IV BLOOD PRESSURE SUPPORT Last administered on 11/01/18 18:32; Admin Dose 100 MLS/HR; Start 10/13/18 at 11:30 Magnesium Hydroxide (Milk Of Mag) 30 ml DAILY PRN PO CONSTIPATION; Start 10/16 at 06:30 Heparin Sodium (Porcine) (Heparin (1000 Units/ml)) 500 unit WITH DIALYSIS HE Last administered on 11/05/18 08:33; Admin Dose 500 UNIT; Start 10/20/18 at 10:00 Heparin Sodium (Porcine) (Heparin (1000 Units/ml)) 1,500 unit WITH DIALYSIS HE Last administered on 11/05/18 08:33; Admin Dose 1,500 UNIT; Start 10/20/18 at 10:00 Ondansetron HCl (Zofran Tab) 4 mg Q6H PRN PO NAUSEA AND/OR VOMITING; Start 10/20/18 at 17:30 Epoetin Jero-epbx (Retacrit (Esrd)) 10,000 unit MoWeFr@1700 SC Last administered on 11/05/18 17:29; Admin Dose 10,000 UNIT; Start 10/24/18 at 17:00 Guaifenesin/ Dextromethorphan (Robitussin Dm Liquid Cup) 10 ml Q4H PRN PO cough Last administered on 10/25/18 15:49; Admin Dose 10 ML; Start 10/24/18 at 11:00 Alteplase, Recombinant (Cathflo (Activase)) 4 mg MAY REPEAT X1 PRN CATHETER IF CATHETER REMAINS OCCULUDED Last administered on 11/05/18 11:35; Admin Dose 4 MG; Start 10/29/18 at 14:00 Apixaban (Eliquis) 2.5 mg BID PO Last administered on 11/06/18 20:19; Admin Dose 2.5 MG; Start 10/31/18 at 21:00 Insulin Aspart (Novolog Insulin Pen) 7 unit WITH MEALS SC Last administered on 11/06/18at 12:29; Admin Dose 7 UNIT; Start 11/01/18 at 11:50 Insulin Glargine (Lantus) 21 units DAILY@0830 SC Last administered on 11/06/18at 08:55; Admin Dose 21 UNITS; Start 11/02/18 at 08:30 Famotidine (Pepcid) 10 mg DAILY PO Last administered on 11/06/18at 08:43; Admin Dose 10 MG; Start 11/03/18 at 09:00 Lactobacillus Acidophilus/ Rhamnosus (Culturelle) 1 cap BID PO Last administered on 11/06/18at 20:19; Admin Dose 1 CAP; Start 11/02/18 at 21:00 Escitalopram Oxalate (Lexapro) 5 mg DAILY PO Last administered on 11/06/18at 08:43; Admin Dose 5 MG; Start 11/03/18 at 09:00 Furosemide (Lasix) 20 mg DAILY PO ; Start 11/06/18 at 09:00 Piperacillin Sod/ Tazobactam Sod 50 ml @ 100 mls/hr Q8 IVPB Last administered on 11/07/18at 05:50; Admin Dose 100 MLS/HR; Start 11/06/18 at 18:00 Miscellaneous Information (*Order Clarification Bulletin) MEDICATION REQUIRES CLARIFICATI... Q8H XX ; Start 11/06/18 at 21:30 Miscellaneous Information (*Rx Drug Level Order Reminder*) VANCOMYCIN RANDOM ON W... ONCE ONCE XX ; Start 11/08/18 at 06:00; Stop 11/08/18 at 06:01 Vancomycin HCl (Vanco Iv Per Pharmacy) PER PHARMACY DOSING NOTE XX ; Start 11/07/18 at 08:00 PUSHPA WALL DPM Nov 07, 2018 09:26
--- NOTE | 2018-11-07 12:13 | CONS ---
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 Now worse and will need TMA today Afib/flutter: new onset, rates controlled. Now on Eliquis Cholecystitis: started on antibiotics. Seen on CT. No symptoms or exam findings CAD s/p CABG: CABG x4 10/07/18, ÁLVAREZ to LAD, SVG to ramus, SVG to OM1 sequenced to OM2. Doing well. Extubated 10/08, off pressors NSTEMI: Trop peak 1.1 and trended down. S/p cath 09/30/18 with diffuse multivessel CAD. CABG as above Upper GI bleed: due to anastomotic ulcer seen on EGD 09/26. No bleeding since. Hgb relatively stable. Anemia: due to above. s/p 5 units PRBCs and 2 units intraop. Wenckebach: Mobitz 1. Not on BB. No pauses or high grade block. 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 Unable to place right IJ. Now s/p left femoral permacath 10/24 which clotted but started to work again HTN H/o Billroth Depression: now on meds -restart Eliquis 2.5mg BID when safe post-op to avoid HD catheter dysfunction, hopefully tomorrow am -antibiotics -ASA 81mg -continue to hold metoprolol as pt has bradycardia -lipitor 40mg -lasix 20mg PO -HD per nephrology Consultation Date/Type/Reason Admit Date/Time September 24, 2018 at 08:08 Initial Consult Date 09/24/18 Type of Consult Cardiology Date/Time of Note DATE: 11/07/18 TIME: 12:11 24 HR Interval Summary Free Text/Dictation s/p wound debridement yesterday and taken today for TMA Exam/Review of Systems Vital Signs Vitals Vital Signs Date Temp Pulse Resp B/P (MAP) Pulse Ox O2 O2 Flow FiO2 Time Delivery Rate 11/07/18 78 12:11 11/07/18 Nasal 2.0 09:05 Cannula 11/07/18 97.7 18 138/63 98 07:24 (88) 11/05/18 21 23:48 Intake and Output 11/06/18 11/06/18 11/07/18 1515:00 23:00 07:00 IntakeIntake Total 100 ml 750 ml 200 ml BalanceBalance 100 ml 750 ml 200 ml Exam Exam not examined as pt taken to OR Labs Result Diagram: 11/06/18 0634 11/06/18 0634 Results 24hrs Laboratory Tests Test 11/06/18 17:32 11/06/18 20:12 11/07/18 07:57 11/07/18 11:41 Bedside Glucose 86 153 209 206 Medications Medications Current Medications Oxycodone/ Acetaminophen (Percocet (5/ 325)) 1 tab Q3H PRN PO PAIN LEVEL 1-5 Last administered on 11/02/18at 20:45; Admin Dose 1 TAB; Start 10/07/18 at 21:00 Ondansetron HCl (Zofran Inj) 4 mg Q6H PRN IV NAUSEA AND/OR VOMITING Last administered on 10/21/18at 12:10; Admin Dose 4 MG; Start 10/07/18 at 21:00 Acetaminophen (Tylenol Tab) 650 mg Q3H PRN PO ELEVATED TEMPERATURE Last administered on 11/01/18at 04:02; Admin Dose 650 MG; Start 10/07/18 at 21:00 Atorvastatin Calcium (Lipitor) 40 mg HS PO Last administered on 11/06/18at 20:19; Admin Dose 40 MG; Start 10/08/18 at 21:00 Insulin Aspart (Novolog Insulin Pen) NOVOLOG *MODERATE* ALGORITHM WITH MEALS BEDTIME SC Last administered on 11/06/18at 12:28; Admin Dose 2 UNIT; Start 10/09/18 at 11:30 Glucose (Glutose) 15 gm Q15M PRN PO DECREASED GLUCOSE; Start 10/09/18 at 12:00 Glucose (Glutose) 22.5 gm Q15M PRN PO DECREASED GLUCOSE; Start 10/09/18 at 12:00 Dextrose (D50w Syringe) 25 ml Q15M PRN IV DECREASED GLUCOSE; Start 10/09/18 at 12:00 Dextrose (D50w Syringe) 50 ml Q15M PRN IV DECREASED GLUCOSE; Start 10/09/18 at 12:00 Glucagon (Glucagen) 1 mg Q15M PRN IM DECREASED GLUCOSE; Start 10/09/18 at 12:00 Glucose (Glutose) 15 gm Q15M PRN BUCCAL DECREASED GLUCOSE Last administered on 10/20/18 18:52; Admin Dose 15 GM; Start 10/09/18 at 12:00 Diagnostic Test (Pha) (Accu-Chek) 1 ea AC MEALS AND BEDTIME XX Last administered on 11/06/18 20:20; Admin Dose 1 EA; Start 10/09/18 at 11:00 Aspirin (Aspirin) 81 mg DAILY PO Last administered on 11/06/18 08:43; Admin Dose 81 MG; Start 10/13/18 at 09:00 Albumin Human 100 ml @ 100 mls/hr DURING DIALYSIS PRN IV BLOOD PRESSURE SUPPORT Last administered on 11/01/18 18:32; Admin Dose 100 MLS/HR; Start 10/13/18 at 11:30 Magnesium Hydroxide (Milk Of Mag) 30 ml DAILY PRN PO CONSTIPATION; Start 10/16/18 at 06:30 Heparin Sodium (Porcine) (Heparin (1000 Units/ml)) 500 unit WITH DIALYSIS HE Last administered on 11/05/18 08:33; Admin Dose 500 UNIT; Start 10/20/18 at 10:00 Heparin Sodium (Porcine) (Heparin (1000 Units/ml)) 1,500 unit WITH DIALYSIS HE Last administered on 11/05/18 08:33; Admin Dose 1,500 UNIT; Start 10/20/18 at 10:00 Ondansetron HCl (Zofran Tab) 4 mg Q6H PRN PO NAUSEA AND/OR VOMITING; Start 10/20/18 at 17:30 Epoetin Jero-epbx (Retacrit (Esrd)) 10,000 unit MoWeFr@1700 SC Last administe red on 11/05/18 17:29; Admin Dose 10,000 UNIT; Start 10/24/18 at 17:00 Guaifenesin/ Dextromethorphan (Robitussin Dm Liquid Cup) 10 ml Q4H PRN PO cough Last administered on 10/25/18 15:49; Admin Dose 10 ML; Start 10/24/18 at 11:00 Alteplase, Recombinant (Cathflo (Activase)) 4 mg MAY REPEAT X1 PRN CATHETER IF CATHETER REMAINS OCCULUDED Last administered on 11/05/18 11:35; Admin Dose 4 MG; Start 10/29/18 at 14:00 Apixaban (Eliquis) 2.5 mg BID PO Last administered on 11/06/18 20:19; Admin Dose 2.5 MG; Start 10/31/18 at 21:00; Status Hold Insulin Aspart (Novolog Insulin Pen) 7 unit WITH MEALS SC Last administered on 11/06/18 12:29; Admin Dose 7 UNIT; Start 11/01/18 at 11:50 Insulin Glargine (Lantus) 21 units DAILY@0830 SC Last administered on 11/07/18 08:55; Admin Dose 21 UNITS; Start 11/02/18 at 08:30 Famotidine (Pepcid) 10 mg DAILY PO Last administered on 11/07/18 08:49; Admin Dose 10 MG; Start 11/03/18 at 09:00 Lactobacillus Acidophilus/ Rhamnosus (Culturelle) 1 cap BID PO Last administered on 11/07/18 08:48; Admin Dose 1 CAP; Start 11/02/18 at 21:00 Escitalopram Oxalate (Lexapro) 5 mg DAILY PO Last administered on 11/07/18 08:48; Admin Dose 5 MG; Start 11/03/18 at 09:00 Furosemide (Lasix) 20 mg DAILY PO Last administered on 11/07/18 08:49; Admin Dose 20 MG; Start 11/06/18 at 09:00 Piperacillin Sod/ Tazobactam Sod 50 ml @ 100 mls/hr Q8 IVPB Last administered on 11/07/18 05:50; Admin Dose 100 MLS/HR; Start 11/06/18 at 18:00 Miscellaneous Information (*Order Clarification Bulletin) MEDICATION REQUIRES CLARIFICATI... Q8H XX ; Start 11/06/18 at 21:30 Miscellaneous Information (*Rx Drug Level Order Reminder*) VANCOMYCIN RANDOM ON W... ONCE ONCE XX ; Start 11/08/18 at 06:00; Stop 11/08/18 at 06:01 Vancomycin HCl (Vanco Iv Per Pharmacy) PER PHARMACY DOSING NOTE XX ; Start 11/07/18 at 08:00 LAVON SEE Nov 07, 2018 12:13
--- NOTE | 2018-11-07 12:15 | PREAC ---
Date/Time of Note Date/Time of Note DATE: 11/07/18 TIME: 12:12 Anesthesia Eval and Record Evaluation Time Pre-Procedure Interview DATE: 11/07/18 TIME: 12:12 Age 67 Sex male NPO: 8 hrs Preoperative diagnosis left foot wet gangrene Planned procedure left transmetatarsal amputation Past Medical History Past Medical History: Includes Cardio: HTN, Dyslipidemia, CAD, CABG, Arrythmia Endo: Diabetes Neuro: Peripheral neuropathy Renal: ESRD on dialysis Heme: Anemia Psych: Depression Surgery & Anesthesia Issues No known issue Meds Anticoagulation: No Beta Jesse within 24 hr: No Reason Beta Jesse not given: Pt. not on B-Jesse Discontinued Reported Medications Clopidogrel Bisulfate (Clopidogrel) 75 Mg Tablet, 75 MG PO DAILY, #30 TAB 09/24/18 Ezetimibe* (Zetia*) 10 Mg Tablet, 10 MG PO DAILY, TAB 08/29/18 Insulin Lispro (Humalog Kwikpen U-100) 100 Unit/1 Ml Insuln.pen, 0 SQ SLIDING SCALE, EA 08/28/18 Insulin Glargine* (Lantus*) 100 Unit/Ml Soln, 0 SC QHS, #1 VIAL 45-52 UNITS 08/28/18 Metolazone* (Metolazone*) 5 Mg Tablet, 10 MG PO BID, TAB 08/28/18 Multivit/Ca Carb/B Cmplx/Fa* (Isabel-Brenda*) 1 Tab Tab, 1 TAB PO DAILY, TAB 08/28/18 Furosemide* (Furosemide*) 80 Mg Tablet, 160 MG PO BID, #60 TAB 08/28/18 Folic Acid* (Folic Acid*) 1 Mg Tablet, 1 MG PO DAILY, TAB 08/28/18 Apixaban* (Eliquis*) 5 Mg Tablet, 5 MG PO BID, TAB 08/28/18 Sevelamer Carbonate* (Renvela*) 800 Mg Tablet, 0.8 GM PO WITH MEALS, TAB 08/28/18 Current Medications Oxycodone/ Acetaminophen (Percocet (5/ 325)) 1 tab Q3H PRN PO PAIN LEVEL 1-5 L ast administered on 11/02/18at 20:45; Admin Dose 1 TAB; Start 10/07/18 at 21:00 Ondansetron HCl (Zofran Inj) 4 mg Q6H PRN IV NAUSEA AND/OR VOMITING Last administered on 10/21/18 12:10; Admin Dose 4 MG; Start 10/07/18 at 21:00 Acetaminophen (Tylenol Tab) 650 mg Q3H PRN PO ELEVATED TEMPERATURE Last a dministered on 11/01/18 04:02; Admin Dose 650 MG; Start 10/07/18 at 21:00 Atorvastatin Calcium (Lipitor) 40 mg HS PO Last administered on 11/06/18 20:19; Admin Dose 40 MG; Start 10/08/18 at 21:00 Insulin Aspart (Novolog Insulin Pen) NOVOLOG *MODERATE* ALGORITHM WITH MEALS BEDTIME SC Last administered on 11/06/18 12:28; Admin Dose 2 UNIT; Start 10/09/18 at 11:30 Glucose (Glutose) 15 gm Q15M PRN PO DECREASED GLUCOSE; Start 10/09/18 at 12:00 Glucose (Glutose) 22.5 gm Q15M PRN PO DECREASED GLUCOSE; Start 10/09/18 at 12:00 Dextrose (D50w Syringe) 25 ml Q15M PRN IV DECREASED GLUCOSE; Start 10/09/18 at 12:00 Dextrose (D50w Syringe) 50 ml Q15M PRN IV DECREASED GLUCOSE; Start 10/09/18 at 12:00 Glucagon (Glucagen) 1 mg Q15M PRN IM DECREASED GLUCOSE; Start 10/09/18 at 12:00 Glucose (Glutose) 15 gm Q15M PRN BUCCAL DECREASED GLUCOSE Last administered on 10/20/18 18:52; Admin Dose 15 GM; Start 10/09/18 at 12:00 Diagnostic Test (Pha) (Accu-Chek) 1 ea AC MEALS AND BEDTIME XX Last adminis tered on 11/06/18 20:20; Admin Dose 1 EA; Start 10/09/18 at 11:00 Aspirin (Aspirin) 81 mg DAILY PO Last administered on 11/06/18 08:43; Admin Dose 81 MG; Start 10/13/18 at 09:00 Albumin Human 100 ml @ 100 mls/hr DURING DIALYSIS PRN IV BLOOD PRESSURE SUPPORT Last administered on 11/01/18 18:32; Admin Dose 100 MLS/HR; Start 10/13/18 at 11:30 Magnesium Hydroxide (Milk Of Mag) 30 ml DAILY PRN PO CONSTIPATION; Start 10/16/18 at 06:30 Heparin Sodium (Porcine) (Heparin (1000 Units/ml)) 500 unit WITH DIALYSIS HE Last administered on 11/05/18 08:33; Admin Dose 500 UNIT; Start 10/20/18 at 10:00 Heparin Sodium (Porcine) (Heparin (1000 Units/ml)) 1,500 unit WITH DIALYSIS HE Last administered on 11/05/18 08:33; Admin Dose 1,500 UNIT; Start 10/20/18 at 10:00 Ondansetron HCl (Zofran Tab) 4 mg Q6H PRN PO NAUSEA AND/OR VOMITING; Start 10/20/18 at 17:30 Epoetin Jero-epbx (Retacrit (Esrd)) 10,000 unit MoWeFr@1700 SC Last administered on 11/05/18 17:29; Admin Dose 10,000 UNIT; Start 10/24/18 at 17:00 Guaifenesin/ Dextromethorphan (Robitussin Dm Liquid Cup) 10 ml Q4H PRN PO cough Last administered on 10/25/18 15:49; Admin Dose 10 ML; Start 10/24/18 at 11:00 Alteplase, Recombinant (Cathflo (Activase)) 4 mg MAY REPEAT X1 PRN CATHETER IF CATHETER REMAINS OCCULUDED Last administered on 11/05/18 11:35; Admin Dose 4 MG; Start 10/29/18 at 14:00 Apixaban (Eliquis) 2.5 mg BID PO Last administered on 11/06/18 20:19; Admin Dose 2.5 MG; Start 10/31/18 at 21:00; Status Hold Insulin Aspart (Novolog Insulin Pen) 7 unit WITH MEALS SC Last administered on 11/06/18 12:29; Admin Dose 7 UNIT; Start 11/01/18 at 11:50 Insulin Glargine (Lantus) 21 units DAILY@0830 SC Last administered on 11/07/18 08:55; Admin Dose 21 UNITS; Start 11/02/18 at 08:30 Famotidine (Pepcid) 10 mg DAILY PO Last administered on 11/07/18 08:49; Admin Dose 10 MG; Start 11/03/18 at 09:00 Lactobacillus Acidophilus/ Rhamnosus (Culturelle) 1 cap BID PO Last administered on 6/14/19at 08:48; Admin Dose 1 CAP; Start 11/02/18 at 21:00 Escitalopram Oxalate (Lexapro) 5 mg DAILY PO Last administered on 11/07/18at 08:48; Admin Dose 5 MG; Start 11/03/18 at 09:00 Furosemide (Lasix) 20 mg DAILY PO Last administered on 11/07/18at 08:49; Admin Dose 20 MG; Start 11/06/18 at 09:00 Piperacillin Sod/ Tazobactam Sod 50 ml @ 100 mls/hr Q8 IVPB Last administered on 11/07/18at 05:50; Admin Dose 100 MLS/HR; Start 11/06/18 at 18:00 Miscellaneous Information (*Order Clarification Bulletin) MEDICATION REQUIRES CLARIFICATI... Q8H XX ; Start 11/06/18 at 21:30 Miscellaneous Information (*Rx Drug Level Order Reminder*) VANCOMYCIN RANDOM ON W... ONCE ONCE XX ; Start 11/08/18 at 06:00; Stop 11/08/18 at 06:01 Vancomycin HCl (Vanco Iv Per Pharmacy) PER PHARMACY DOSING NOTE XX ; Start 11/07/18 at 08:00 Meds reviewed: Yes Allergies Coded Allergies: No Known Allergies (Verified Allergy, Mild, 09/24/18) Allergies Reviewed: Yes Labs/Studies Labs Reviewed: Reviewed by anesthesiologist Result Diagram: 11/06/1863311/06/18633 test: N/A Studies: ECG, CXR, 2D Echo Pre-procedure Exam Last vitals Vital Signs Date Temp Pulse Resp B/P (MAP) Pulse Ox O2 O2 Flow FiO2 Time Delivery Rate 11/07/18 Nasal 2.0 09:05 Cannula 11/07/18 71 08:16 11/07/18 97.7 18 138/63 98 07:24 (88) 11/05/18 21 23:48 Airway: Adequate mouth opening, Adequate thyromental dist Mallampati: Mallampati II Teeth: Normal Lung: Normal Heart: Normal ASA Physical Status ASA physical status: 4 Emergency: None Planned Anesthetic General/MAC: MAC Planned Pain Management Parenteral pain med Pre-operative Attestations Prior to commencing anesthesia and surgery, the patient was re-evaluated, there was verification of: *The patient's identity *The results of appropriate recent lab work and preoperative vital signs *The above evaluation not changing prior to induction *Anesthetic plan, risk benefits, alternative and complications discussed with patient/family; questions answered; patient/family understands, accepts and wishes to proceed. ROMAINE VIEIRA Nov 07, 2018 12:15
[2018-11-07] MEDS ORDERED: MIDAZOLAM 1 MG/ML 2 ML INJ ONE ×2 (12:42→13:08)
[2018-11-07] MEDS ORDERED: FENTAnyl 50 MCG/ML VIAL ONE (12:43)
[2018-11-07] MEDS ORDERED: LIDOCAINE 1% (MPF) 30 ML INJ ONE (12:43)
[2018-11-07] MEDS ORDERED: BUPIVACAINE 0.25% (MPF) 10 ML 10 ML VIAL INJ ONE (13:00)
[2018-11-07] MEDS ORDERED: LIDOCAINE 1% (MPF) 10 ML INJ INJ ONE (13:00)
--- NOTE | 2018-11-07 13:53 | PN ---
Date/Time of Note Date/Time of Note DATE: 11/07/18 TIME: 13:52 Assessment/Plan VTE Prophylaxis Risk score (from Nsg)>0 risk: 10 SCD applied (from Nsg): Yes Pharmacological prophylaxis: heparin Lines/Catheters IV Catheter Type (from Nrsg): Mid Line Urinary Cath still in place: No Assessment/Plan Hospital Course Alert, no distress AOx3 RRR Breathing comfortably No RUQ pain, soft nt nd no edema, venous stasis Gangrenous toes 67 yo with numerous comorbidities including dyslipidemia, IDDM, ESRD on HD and severe PVD who is also anticoagulated on Eliquis/Plavix,here with worsening juan pablo ise. Subsequently underwent CABG for severe CAD. HD has been complicated by issues with difficult access as he has extensive venous clots. Permacath placed here no longer functions. Per vascluar surgery, he will require transfer to tertiary center to see if access can be placed. For now has femoral line Foot gangrene - IV abx. Podiatry to operate today Cholecystitis: - Symptoms much better. s/p abx ESRD: - HD per renal via femoral access IVC clot: - Eliquis NSTEMI/Multivessel coronary artery disease - s/p LHC 09/30 - s/p CABG 10/07 - Cautiously resume beta blockers. - Anticoag, antiplatelet per CT surgery - Continue statin. Severe acute symptomatic blood loss anemia -Improved with multiple transfusion. 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 -Wound care #Obesity with BMI 36.3 -Weight reduction advised. #Anemia of ESRD -on Epogen with hemodialysis #Debility secondary to comorbidities -Continue PT #Depression -Started Paxil DVT prophylaxis: SCDs PUD prophylaxis: Protonix DC planning: To [facility] Result Diagram: 11/06/18 0634 11/06/18 0634 Results 24hrs Laboratory Tests Test 11/06/18 17:32 11/06/18 20:12 11/07/18 07:57 11/07/18 11:41 Bedside Glucose 86 153 209 206 Subjective 24 Hr Interval Summary Free Text/Dictation To OR today for foot debridement Exam/Review of Systems Exam Vitals Vital Signs Date Temp Pulse Resp B/P (MAP) Pulse Ox O2 O2 Flow FiO2 Time Delivery Rate 11/07/18 78 12:11 11/07/18 98.0 22 108/18 95 Room Air 11:55 (48) 11/07/18 2.0 09:05 11/05/18 21 23:48 Intake and Output 11/06/18 11/06/18 11/07/18 1515:00 23:00 07:00 IntakeIntake Total 100 ml 750 ml 200 ml BalanceBalance 100 ml 750 ml 200 ml Results Results 24hrs Laboratory Tests Test 11/06/18 17:32 11/06/18 20:12 11/07/18 07:57 11/07/18 11:41 Bedside Glucose 86 153 209 206 Medications Medication Current Medications Oxycodone/ Acetaminophen (Percocet (5/ 325)) 1 tab Q3H PRN PO PAIN LEVEL 1-5 Last administered on 11/02/18at 20:45; Admin Dose 1 TAB; Start 10/07/18 at 21:00 Ondansetron HCl (Zofran Inj) 4 mg Q6H PRN IV NAUSEA AND/OR VOMITING Last admini stered on 10/21/18at 12:10; Admin Dose 4 MG; Start 10/07/18 at 21:00 Acetaminophen (Tylenol Tab) 650 mg Q3H PRN PO ELEVATED TEMPERATURE Last administered on 11/01/18at 04:02; Admin Dose 650 MG; Start 10/07/18 at 21:00 Atorvastatin Calcium (Lipitor) 40 mg HS PO Last administered on 11/06/18 20:19; Admin Dose 40 MG; Start 10/08/18 at 21:00 Insulin Aspart (Novolog Insulin Pen) NOVOLOG *MODERATE* ALGORITHM WITH MEALS BEDTIME SC Last administered on 11/06/18 12:28; Admin Dose 2 UNIT; Start 10/09/18 at 11:30 Glucose (Glutose) 15 gm Q15M PRN PO DECREASED GLUCOSE; Start 10/09/18 at 12:00 Glucose (Glutose) 22.5 gm Q15M PRN PO DECREASED GLUCOSE; Start 10/09/18 at 12:00 Dextrose (D50w Syringe) 25 ml Q15M PRN IV DECREASED GLUCOSE; Start 10/09/18 at 12:00 Dextrose (D50w Syringe) 50 ml Q15M PRN IV DECREASED GLUCOSE; Start 10/09/18 at 12:00 Glucagon (Glucagen) 1 mg Q15M PRN IM DECREASED GLUCOSE; Start 10/09/18 at 12:00 Glucose (Glutose) 15 gm Q15M PRN BUCCAL DECREASED GLUCOSE Last administered on 10/20/18 18:52; Admin Dose 15 GM; Start 10/09/18 at 12:00 Diagnostic Test (Pha) (Accu-Chek) 1 ea AC MEALS AND BEDTIME XX Last administered on 11/06/18 20:20; Admin Dose 1 EA; Start 10/09/18 at 11:00 Aspirin (Aspirin) 81 mg DAILY PO Last administered on 11/06/18 08:43; Admin Dose 81 MG; Start 10/13/18 at 09:00 Albumin Human 100 ml @ 100 mls/hr DURING DIALYSIS PRN IV BLOOD PRESSURE SUPPORT Last administered on 11/01/18 18:32; Admin Dose 100 MLS/HR; Start 10/13/18 at 11:30 Magnesium Hydroxide (Milk Of Mag) 30 ml DAILY PRN PO CONSTIPATION; Start 10/16/18 at 06:30 Heparin Sodium (Porcine) (Heparin (1000 Units/ml)) 500 unit WITH DIALYSIS HE Last administered on 11/05/18 08:33; Admin Dose 500 UNIT; Start 10/20/18 at 10:00 Heparin Sodium (Porcine) (Heparin (1000 Units/ml)) 1,500 unit WITH DIALYSIS HE Last administered on 11/05/18 08:33; Admin Dose 1,500 UNIT; Start 10/20/18 at 10:00 Ondansetron HCl (Zofran Tab) 4 mg Q6H PRN PO NAUSEA AND/OR VOMITING; Start 10/20/18 at 17:30 Epoetin Jero-epbx (Retacrit (Esrd)) 10,000 unit MoWeFr@1700 SC Last administered on 11/05/18 17:29; Admin Dose 10,000 UNIT; Start 10/24/18 at 17:00 Guaifenesin/ Dextromethorphan (Robitussin Dm Liquid Cup) 10 ml Q4H PRN PO cough Last administered on 10/25/18 15:49; Admin Dose 10 ML; Start 10/24/18 at 11:00 Alteplase, Recombinant (Cathflo (Activase)) 4 mg MAY REPEAT X1 PRN CATHETER IF CATHETER REMAINS OCCULUDED Last administered on 11/05/18 11:35; Admin Dose 4 MG; Start 10/29/18 at 14:00 Apixaban (Eliquis) 2.5 mg BID PO Last administered on 11/06/18 20:19; Admin Dose 2.5 MG; Start 10/31/18 at 21:00; Status Hold Insulin Aspart (Novolog Insulin Pen) 7 unit WITH MEALS SC Last administered on 11/06/18 12:29; Admin Dose 7 UNIT; Start 11/01/18 at 11:50 Insulin Glargine (Lantus) 21 units DAILY@0830 SC Last administered on 11/07/18 08:55; Admin Dose 21 UNITS; Start 11/02/18 at 08:30 Famotidine (Pepcid) 10 mg DAILY PO Last administered on 11/07/18 08:49; Admin Dose 10 MG; Start 11/03/18 at 09:00 Lactobacillus Acidophilus/ Rhamnosus (Culturelle) 1 cap BID PO Last administered on 11/07/18 08:48; Admin Dose 1 CAP; Start 11/02/18 at 21:00 Escitalopram Oxalate (Lexapro) 5 mg DAILY PO Last administered on 11/07/18 08:48; Admin Dose 5 MG; Start 11/03/18 at 09:00 Furosemide (Lasix) 20 mg DAILY PO Last administered on 11/07/18 08:49; Admin Dose 20 MG; Start 11/06/18 at 09:00 Piperacillin Sod/ Tazobactam Sod 50 ml @ 100 mls/hr Q8 IVPB Last administered on 11/07/18 05:50; Admin Dose 100 MLS/HR; Start 11/06/18 at 18:00 Miscellaneous Information (*Order Clarification Bulletin) MEDICATION REQUIRES CLARIFICATI... Q8H XX ; Start 11/06/18 at 21:30 Miscellaneous Information (*Rx Drug Level Order Reminder*) VANCOMYCIN RANDOM ON W... ONCE ONCE XX ; Start 11/08/18 at 06:00; Stop 11/08/18 at 06:01 Vancomycin HCl (Vanco Iv Per Pharmacy) PER PHARMACY DOSING NOTE XX ; Start 11/07/18 at 08:00 PAUL LINEDR MD Nov 07, 2018 13:53
[2018-11-07] MEDS ORDERED: GELATIN SIZE 100 SPONGE ONE (13:56)
[2018-11-07] MEDS ORDERED: THROMBIN 5000 UNIT VIAL ONE (13:56)
[2018-11-07] MEDS ORDERED: GELATIN SIZE 100 SPONGE TOP ONE (13:58)
[2018-11-07] MEDS ORDERED: THROMBIN 5000 UNIT VIAL TOP ONE (13:58)
--- NOTE | 2018-11-07 14:11 | SIPON ---
Date/Time of Note Date/Time of Note DATE: 11/07/18 TIME: 14:10 Operative Report Preoperative Diagnosis Left foot wet gangrene. Postoperative Diagnosis same Operation/Procedure Performed Left foot Transmetatarsal Amputation. Surgeon see signature line educational assistant N/A Anesthesia: MAC Estimated blood loss: 10 - 50 ml's Transfusion Required none Specimen Left partial foot. Grafts/Implants none Complications none PUSHPA WALL DPM Nov 07, 2018 14:11
--- NOTE | 2018-11-07 14:16 | PAC ---
Date/Time of Note Date/Time of Note DATE: 11/07/18 TIME: 14:15 Post-Anesthesia Notes Post-Anesthesia Note Last documented vital signs Vital Signs Date Temp Pulse Resp B/P (MAP) Pulse Ox O2 O2 Flow FiO2 Time Delivery Rate 11/07/18 97.7 78 18 138/63 98 1415 (88) Activity: WNL Respiratory function: WNL Cardiovascular function: WNL Mental status: Baseline Pain reasonably controlled: Yes Hydration appropriate: Yes Nausea/Vomiting absent: Yes ROMAINE VIEIRA Nov 07, 2018 14:16
--- NOTE | 2018-11-07 14:26 | OPR ---
Date/Time of Note Date/Time of Note DATE: 11/07/18 TIME: 14:15 Operative Report Preoperative Diagnosis Left foot wet gangrene. 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 Patient was placed under MAC anesthesia by anesthesiologist. Left foot modified ankle block using 20 cc 1:1 Lidocaine 1% plain mixed with 0.25 Marcain plain. Patient left foot was prepped and draped in usual sterile manner. Left foot fish mouth incision was made for planned transmetatarsal amputation. Using sharp 15 blade incision was deepened down to bone. All tendons were resected appropriately. All bleeders were bovied appropriately. There was significant amount of necrotic tissue plantar medial aspect of left foot and also also across gangrenous lesser digits. Drain from dorsal midfoot noted which was cultured. Transmetatarsal amputation performed with appropriate resection of all metatarsal bones 1-5. All nectrotic tissue skin and soft tissue was removed. There was some bleeding post debridement. Area was flushed with pulse lavage 2000 liters mixed with bacitracin. All further necrotic tissues were removed. Wound was packed with 1/2 inch iodoform. Appropriate dressing with 4x4 gauze, ABD pad, anny and bias applied. Patient to be transferred to PACU and back to the floor. Patient's vital signs with in normal limit. PUSHPA WALL DPM Nov 07, 2018 14:26
[2018-11-07] MEDS ORDERED: FENTAnyl 50 MCG/ML VIAL IV PRN ×2 (14:30)
[2018-11-07] MEDS ORDERED: hydrALAzine 20 MG INJ IV PRN (14:30)
[2018-11-07] MEDS ORDERED: ONDANSETRON 4 MG INJ IV PRN (14:30)
[2018-11-07] MEDS ORDERED: MIDAZOLAM 1 MG/ML 2 ML INJ IV PRN (14:30)
[2018-11-07] MEDS ORDERED: LABETALOL HCL 20MG INJ IV PRN (14:30)
[2018-11-07] MEDS ORDERED: EPHEDrine 25 MG/5 ML SYG IV PRN (14:30)
[2018-11-07] MEDS ORDERED: DIPHENHYDRAMINE 50 MG INJ IV PRN (14:30)
[2018-11-07] MEDS ORDERED: ALBUTEROL 0.083% (NEB) 2.5 MG/3 ML AMP HHN PRN (14:30)
[2018-11-07] MEDS ORDERED: INSULIN ASPART [NOVOLOG] 3 ML PEN SC ONE (14:30)
[2018-11-07] MEDS: EPOETIN ALFA-EPBX (ESRD) 10,000 UNIT/ML VIAL SC SCH (17:23)
[2018-11-07] MEDS ORDERED: [UNRECOGNIZED DRUG - OTHER] XX SCH (18:00)
[2018-11-07] MEDS ORDERED: TYLENOL PRN XX SCH (18:00)
[2018-11-07] MEDS: HEPARIN 1000 UNITS/ML 10 ML INJ HE SCH ×2 (20:33→20:34)
[2018-11-07] MEDS: ATORVASTATIN 40 MG TAB PO SCH (20:36)
[2018-11-07] MEDS ORDERED: ALBUTEROL/IPRATROPIUM (NEB) 3 ML AMP HHN PRN (22:00)
[2018-11-07] MEDS ORDERED: LEVALBUTEROL (NEB) 1.25 MG/0.5 ML AMP HHN PRN (22:00)
[2018-11-07] MEDS ORDERED: IPRATROPIUM (NEB) 0.5 MG/2.5 ML AMP HHN PRN (22:30)
[2018-11-07] MEDS: ACETAMINOPHEN 325 MG TAB PO PRN (22:59)
[2018-11-07] MEDS: ALTEPLASE (CATHFLO) 2 MG INJ CATHETER PRN (23:13)
[2018-11-08] VITALS (26 sets, daily range): BP systolic 80–122; BP diastolic 33–62; PULSE 41–108; RESP 17–22
[2018-11-08] MEDS: ALBUMIN HUMAN 25% 100 ML IV SCH ×2 (04:18→05:51)
[2018-11-08] MEDS ORDERED: VANCOMYCIN RANDOM LEVEL XX ONE (06:00)
[2018-11-08] MEDS: PIPER-TAZO 2.25 GM (PMX) 50 ML IVPB SCH ×3 (06:09→21:13)
[2018-11-08] MEDS: ACCU-CHEK XX SCH ×4 (07:25→20:21)
--- NOTE | 2018-11-08 07:48 | CONS ---
Assessment/Plan Assessment/Plan Hospital Course (Demo Recall) 67 yo male with multiple medical problems including DM, ESRD, PVD and now with wet gangrene of left foot with abscess formation in need for urgent surgical intervention. -Patient and were advised about condition. Patient's left foot s/p debridement, however, there continues to be necrotic tissue, minimal drainage for dorsal aspect left foot 4th interspace. Patient would need formal OR debridement (open TMA) today urgently given wet gangrene and abscess formation to resolve the infection. Patient and were advised about the urgent need for this procedure. All risks of procedure were discussed including but not limited to: bleeding, further need for surgery, further gangrene changes of left foot, loss of limb or life. Patient and understand all above risks and benefits. -Patient to hold of on Dialysis till after schedule procedure. -Patient needs to continue with current antibiotics, wound cultures are pending. -Patient would benefit from formal ID consult. -Further vascular intervention per Dr. Mejia. Assessment/Plan (Daily) 67 yo male with multiple medical problems including DM ESRD, PVD one day s/p left foot open TMA doing well. -application of wound VAC this morning. -Recommend continuing with IV antibiotics, wound cultures are pending. -Recommend follow up with ID for antibiotic recommendations pending Microbiology. -Wound VAC to be changed MWF by wound care nurses, black foam at 125 mmHG. -Patient needs to be non weight bearing left lower extremity. -Please contact me for any further questions. -Will continue to follow. Consultation Date/Type/Reason Admit Date/Time September 24, 2018 at 08:08 Initial Consult Date 10/01/18 Date/Time of Note DATE: 11/08/18 TIME: 07:40 24 HR Interval Summary Free Text/Dictation Patient seen bedside one day s/p left foot open TMA secondary to wet gangrene. Patient is doing well, denies any fevers, chills, nausea or vomiting. Dressing dry and intact. Exam/Review of Systems Exam Vitals Vital Signs Date Temp Pulse Resp B/P (MAP) Pulse Ox O2 O2 Flow FiO2 Time Delivery Rate 11/08/18 97.7 72 18 99/44 (62) 99 Nasal 3.0 07:16 Cannula 11/07/18 27 22:11 Intake and Output 11/07/18 11/07/18 11/08/18 1515:00 23:00 07:00 IntakeIntake Total 500 ml 400 ml OutputOutput Total 20 ml 200 ml 1868 ml BalanceBalance 480 ml 200 ml -1868 ml Exam S/P left foot open TMA, there seems to be viable bleeding tissue at this time. No active bleeders. No purulent drainage from the wound noted. No proximal streaking noted. Results Result Diagram: 11/06/18 0634 11/06/18 0634 Results 24hrs Laboratory Tests Test 11/07/18 07:57 11/07/18 11:41 11/07/18 14:15 11/07/18 17:22 Bedside Glucose 209 206 204 204 Test 11/07/18 20:31 11/08/18 05:00 Bedside Glucose 128 Random Vancomycin 13.7 Level Medications Medication Current Medications Oxycodone/ Acetaminophen (Percocet (5/ 325)) 1 tab Q3H PRN PO PAIN LEVEL 1-5 Last administered on 11/02/18at 20:45; Admin Dose 1 TAB; Start 10/07/18 at 21:00 Ondansetron HCl (Zofran Inj) 4 mg Q6H PRN IV NAUSEA AND/OR VOMITING Last administered on 10/21/18at 12:10; Admin Dose 4 MG; Start 10/07/18 at 21:00 Acetaminophen (Tylenol Tab) 650 mg Q3H PRN PO ELEVATED TEMPERATURE Last administered on 11/07/18at 22:59; Admin Dose 650 MG; Start 10/07/18 at 21:00 Atorvastatin Calcium (Lipitor) 40 mg HS PO Last administered on 11/07/18at 20:36; Admin Dose 40 MG; Start 10/08/18 at 21:00 Insulin Aspart (Novolog Insulin Pen) NOVOLOG *MODERATE* ALGORITHM WITH MEALS BEDTIME SC Last administered on 11/07/18at 17:29; Admin Dose 4 UNIT; Start 10/09/18 at 11:30 Glucose (Glutose) 15 gm Q15M PRN PO DECREASED GLUCOSE; Start 10/09/18 at 12:00 Glucose (Glutose) 22.5 gm Q15M PRN PO DECREASED GLUCOSE; Start 10/09/18 at 12:00 Dextrose (D50w Syringe) 25 ml Q15M PRN IV DECREASED GLUCOSE; Start 10/09/18 at 12:00 Dextrose (D50w Syringe) 50 ml Q15M PRN IV DECREASED GLUCOSE; Start 10/09/18 at 12:00 Glucagon (Glucagen) 1 mg Q15M PRN IM DECREASED GLUCOSE; Start 10/09/18 at 12:00 Glucose (Glutose) 15 gm Q15M PRN BUCCAL DECREASED GLUCOSE Last administered on 10/20/18 18:52; Admin Dose 15 GM; Start 10/09/18 at 12:00 Diagnostic Test (Pha) (Accu-Chek) 1 ea AC MEALS AND BEDTIME XX Last administered on 11/07/18 21:50; Admin Dose 1 EA; Start 10/09/18 at 11:00 Aspirin (Aspirin) 81 mg DAILY PO Last administered on 11/06/18 08:43; Admin Dose 81 MG; Start 10/13/18 at 09:00 Albumin Human 100 ml @ 100 mls/hr DURING DIALYSIS PRN IV BLOOD PRESSURE SUPPORT Last administered on 11/01/18 18:32; Admin Dose 100 MLS/HR; Start 10/13/18 at 11:30 Magnesium Hydroxide (Milk Of Mag) 30 ml DAILY PRN PO CONSTIPATION; Start 10/16/18 at 06:30 Heparin Sodium (Porcine) (Heparin (1000 Units/ml)) 500 unit WITH DIALYSIS HE Last administered on 11/07/18 20:33; Admin Dose 500 UNIT; Start 10/20/18 at 10:00 Heparin Sodium (Porcine) (Heparin (1000 Units/ml)) 1,500 unit WITH DIALYSIS HE Last administered on 11/07/18 20:34; Admin Dose 1,500 UNIT; Start 10/20/18 at 10:00 Ondansetron HCl (Zofran Tab) 4 mg Q6H PRN PO NAUSEA AND/OR VOMITING; Start 10/20/18 at 17:30 Epoetin Jero-epbx (Retacrit (Esrd)) 10,000 unit MoWeFr@1700 SC Last administered on 11/07/18 17:23; Admin Dose 10,000 UNIT; Start 10/24/18 at 17:00 Guaifenesin/ Dextromethorphan (Robitussin Dm Liquid Cup) 10 ml Q4H PRN PO cough Last administered on 10/25/18 15:49; Admin Dose 10 ML; Start 10/24/18 at 11:00 Alteplase, Recombinant (Cathflo (Activase)) 4 mg MAY REPEAT X1 PRN CATHETER IF CATHETER REMAINS OCCULUDED Last administered on 11/07/18 23:13; Admin Dose 4 MG; Start 10/29/18 at 14:00 Apixaban (Eliquis) 2.5 mg BID PO Last administered on 11/06/18 20:19; Admin Dose 2.5 MG; Start 10/31/18 at 21:00 Insulin Aspart (Novolog Insulin Pen) 7 unit WITH MEALS SC Last administered on 11/07/18at 17:29; Admin Dose 7 UNIT; Start 11/01/18 at 11:50 Insulin Glargine (Lantus) 21 units DAILY@0830 SC Last administered on 11/07/18 08:55; Admin Dose 21 UNITS; Start 11/02/18 at 08:30 Famotidine (Pepcid) 10 mg DAILY PO Last administered on 11/07/18 08:49; Admin Dose 10 MG; Start 11/03/18 at 09:00 Lactobacillus Acidophilus/ Rhamnosus (Culturelle) 1 cap BID PO Last administered on 11/07/18at 20:36; Admin Dose 1 CAP; Start 11/02/18 at 21:00 Escitalopram Oxalate (Lexapro) 5 mg DAILY PO Last administered on 11/07/18 08:48; Admin Dose 5 MG; Start 11/03/18 at 09:00 Furosemide (Lasix) 20 mg DAILY PO Last administered on 11/07/18 08:49; Admin Dose 20 MG; Start 11/06/18 at 09:00 Piperacillin Sod/ Tazobactam Sod 50 ml @ 100 mls/hr Q8 IVPB Last administered on 11/08/18at 06:09; Admin Dose 100 MLS/HR; Start 11/06/18 at 18:00 Miscellaneous Information (*Order Clarification Bulletin) MEDICATION REQUIRES CLARIFICATI... Q8H XX ; Start 11/06/18 at 21:30 Vancomycin HCl (Vanco Iv Per Pharmacy) PER PHARMACY DOSING NOTE XX ; Start 11/07/18 at 08:00 Miscellaneous Information 1 ea NOTE XX ; Start 11/07/18 at 18:00 Albuterol/ Ipratropium (Duoneb) 3 ml Q4H RESP THERAPY PRN HHN SHORTNESS OF BREATH; Start 11/07/18 at 22:00 Levalbuterol (Xopenex Neb) 1.25 mg Q4H RESP THERAPY PRN HHN SHORTNESS OF BREATH Last administered on 11/07/18at 22:10; Admin Dose 1.25 MG; Start 11/07/18 at 22:00 Ipratropium [place] (Atrovent 0.02% (Neb)) 0.5 mg Q4H RESP THERAPY PRN HHN SHORTNESS OF BREATH Last administered on 11/07/18at 22:10; Admin Dose 0.5 MG; Start 11/07/18 at 22:30 PUSHPA WALL DPM Nov 08, 2018 07:48
[2018-11-08] MEDS: INSULIN ASPART [NOVOLOG] 3 ML PEN SC SCH ×7 (08:41→20:22)
[2018-11-08] MEDS: FUROSEMIDE 40 MG TAB PO SCH (09:00)
--- NOTE | 2018-11-08 09:14 | CONS ---
Assessment/Plan Assessment/Plan Assessment/Plan (Daily) 1. acute Hyperkalemia due to GI bleeding- resolved 2.Acute fluid overload- now resolved 3. acute GI bleeding causing acute blood loss anemia- S/p Status post EGD/colonoscopy 09/27/19 -Anastomosis ulcer -Normal colonoscopy 4. Severe Anemia with Hb 5.8 on admission s/p 5 U PRBC transfusion for GI ble eding during this admission - pt also has anemia of ESRD 5. H/O HTN 6. H/O peripherla vascular disease 7. ESRD on HD -[facility] HD on MWF 8. 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 Unable to place right IJ by IR due to central stenosis. Now s/p left femoral permacath 10/24 but still intermittently getting clotted- Discussed with Dr. Velasco - Recommended for higher level of care for diffficult HD access, will need IR or vascular surgery [facility] to address HD access establishment due to IVC thrombosis and Central stenosis s/p HD on Saturday 2 L removed - Plan for HD today, , continue Eliquis 2.5 mg PO BID we will keep pt on MWF schedule ( his original schedule)- last 4 sessions HD catheter has worked change lasix to 20mg po daily with holding parameters due to low BP Epogen 89053 units SQ MWF- Hb 8.8 on 11/03/18- no labs since then will follow up Patient seen in collaboration with Dr Tobar Consultation Date/Type/Reason Admit Date/Time September 24, 2018 at 08:08 Initial Consult Date 09/24/18 Type of Consult NEPHROLOGY Reason for Consultation ESRD on HD Date/Time of Note DATE: 11/08/18 TIME: 09:13 24 HR Interval Summary Free Text/Dictation hd today at bed side no events reported last night family at bed side- all Qs answered. Detailed Summary Eyes: no complaints ENT: no complaints Respiratory: no complaints Cardiovascular: no complaints Gastrointestinal: no complaints Musculoskeletal: bone/joint pain, restricted range of motion Skin: other Psychological: nl mood/affect Exam/Review of Systems Exam Vitals Vital Signs Date Temp Pulse Resp B/P (MAP) Pulse Ox O2 O2 Flow FiO2 Time Delivery Rate 11/08/18 77 08:20 11/08/18 97.7 18 99/44 (62) 99 Nasal 3.0 07:16 Cannula 11/07/18 27 22:11 Intake and Output 11/07/18 11/07/18 11/08/18 1515:00 23:00 07:00 IntakeIntake Total 500 ml 400 ml OutputOutput Total 20 ml 200 ml 1868 ml BalanceBalance 480 ml 200 ml -1868 ml Constitutional: alert, well developed Psych: nl mood/affect Eyes: nl lids, nl sclera ENMT: nl external ears & nose Neck: non-tender Respiratory: clear to auscultation Cardiovascular: nl pulses, other (s1s2) Gastrointestinal: soft, non-tender Musculoskeletal: joint tenderness, muscle weakness, range of motion Extremities: edema, other (sp wound debridment- wound vac noted, intact) 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: other (alert/reponsive) Results Result Diagram: 11/06/18 0634 11/06/18 0634 Results 24hrs Laboratory Tests Test 11/07/18 11:41 11/07/18 14:15 11/07/18 17:22 11/07/18 20:31 Bedside Glucose 206 204 204 128 Test 11/08/18 05:00 11/08/18 08:15 Random Vancomycin 13.7 Level Bedside Glucose 203 Medications Medication Current Medications Oxycodone/ Acetaminophen (Percocet (5/ 325)) 1 tab Q3H PRN PO PAIN LEVEL 1-5 Last administered on 11/02/18at 20:45; Admin Dose 1 TAB; Start 10/07/18 at 21:00 Ondansetron HCl (Zofran Inj) 4 mg Q6H PRN IV NAUSEA AND/OR VOMITING Last administered on 10/21/18at 12:10; Admin Dose 4 MG; Start 10/07/18 at 21:00 Acetaminophen (Tylenol Tab) 650 mg Q3H PRN PO ELEVATED TEMPERATURE Last administered on 11/07/18at 22:59; Admin Dose 650 MG; Start 10/07/18 at 21:00 Atorvastatin Calcium (Lipitor) 40 mg HS PO Last administered on 11/07/18at 20:36; Admin Dose 40 MG; Start 10/08/18 at 21:00 Insulin Aspart (Novolog Insulin Pen) NOVOLOG *MODERATE* ALGORITHM WITH MEALS BEDTIME SC Last administered on 11/08/18 08:42; Admin Dose 4 UNIT; Start 10/09/18 at 11:30 Glucose (Glutose) 15 gm Q15M PRN PO DECREASED GLUCOSE; Start 10/09/18 at 12:00 Glucose (Glutose) 22.5 gm Q15M PRN PO DECREASED GLUCOSE; Start 10/09/18 at 12:00 Dextrose (D50w Syringe) 25 ml Q15M PRN IV DECREASED GLUCOSE; Start 10/09/18 at 12:00 Dextrose (D50w Syringe) 50 ml Q15M PRN IV DECREASED GLUCOSE; Start 10/09/18 at 12:00 Glucagon (Glucagen) 1 mg Q15M PRN IM DECREASED GLUCOSE; Start 10/09/18 at 12:00 Glucose (Glutose) 15 gm Q15M PRN BUCCAL DECREASED GLUCOSE Last administered on 10/20/18at 18:52; Admin Dose 15 GM; Start 10/09/18 at 12:00 Diagnostic Test (Pha) (Accu-Chek) 1 ea AC MEALS AND BEDTIME XX Last administered on 11/08/18 07:25; Admin Dose 1 EA; Start 10/09/18 at 11:00 Aspirin (Aspirin) 81 mg DAILY PO Last administered on 11/06/18 08:43; Admin Dose 81 MG; Start 10/13/18 at 09:00 Albumin Human 100 ml @ 100 mls/hr DURING DIALYSIS PRN IV BLOOD PRESSURE SUPPORT Last administered on 11/01/18 18:32; Admin Dose 100 MLS/HR; Start 10/13/18 at 11:30 Magnesium Hydroxide (Milk Of Mag) 30 ml DAILY PRN PO CONSTIPATION; Start 10/16/18 at 06:30 Heparin Sodium (Porcine) (Heparin (1000 Units/ml)) 500 unit WITH DIALYSIS HE Last administered on 11/07/18 20:33; Admin Dose 500 UNIT; Start 10/20/18 at 10:00 Heparin Sodium (Porcine) (Heparin (1000 Units/ml)) 1,500 unit WITH DIALYSIS HE Last administered on 11/07/18 20:34; Admin Dose 1,500 UNIT; Start 10/20/18 at 10:00 Ondansetron HCl (Zofran Tab) 4 mg Q6H PRN PO NAUSEA AND/OR VOMITING; Start at 17:30 Epoetin Jero-epbx (Retacrit (Esrd)) 10,000 unit MoWeFr@1700 SC Last administered on 11/07/18 17:23; Admin Dose 10,000 UNIT; Start 10/24/18 at 17:00 Guaifenesin/ Dextromethorphan (Robitussin Dm Liquid Cup) 10 ml Q4H PRN PO cough Last administered on 10/25/18 15:49; Admin Dose 10 ML; Start 10/24/18 at 11:00 Alteplase, Recombinant (Cathflo (Activase)) 4 mg MAY REPEAT X1 PRN CATHETER IF CATHETER REMAINS OCCULUDED Last administered on 11/07/18 23:13; Admin Dose 4 MG; Start 10/29/18 at 14:00 Apixaban (Eliquis) 2.5 mg BID PO Last administered on 11/06/18 20:19; Admin Dose 2.5 MG; Start 10/31/18 at 21:00 Insulin Aspart (Novolog Insulin Pen) 7 unit WITH MEALS SC Last administered on 11/08/18 08:41; Admin Dose 7 UNIT; Start 11/01/18 at 11:50 Insulin Glargine (Lantus) 21 units DAILY@0830 SC Last administered on 11/07/18 08:55; Admin Dose 21 UNITS; Start 11/02/18 at 08:30 Famotidine (Pepcid) 10 mg DAILY PO Last administered on 11/07/18 08:49; Admin Dose 10 MG; Start 11/03/18 at 09:00 Lactobacillus Acidophilus/ Rhamnosus (Culturelle) 1 cap BID PO Last administered on 11/07/18 20:36; Admin Dose 1 CAP; Start 11/02/18 at 21:00 Escitalopram Oxalate (Lexapro) 5 mg DAILY PO Last administered on 11/07/18 08:48; Admin Dose 5 MG; Start 11/03/18 at 09:00 Furosemide (Lasix) 20 mg DAILY PO Last administered on 11/07/18 08:49; Admin Dose 20 MG; Start 11/06/18 at 09:00 Piperacillin Sod/ Tazobactam Sod 50 ml @ 100 mls/hr Q8 IVPB Last administered on 6/15/19at 06:09; Admin Dose 100 MLS/HR; Start 11/06/18 at 18:00 Miscellaneous Information (*Order Clarification Bulletin) MEDICATION REQUIRES CLARIFICATI... Q8H XX ; Start 11/06/18 at 21:30 Vancomycin HCl (Vanco Iv Per Pharmacy) PER PHARMACY DOSING NOTE XX ; Start 11/07/18 at 08:00 Miscellaneous Information 1 ea NOTE XX ; Start 11/07/18 at 18:00 Albuterol/ Ipratropium (Duoneb) 3 ml Q4H RESP THERAPY PRN HHN SHORTNESS OF BREATH; Start 11/07/18 at 22:00 Levalbuterol (Xopenex Neb) 1.25 mg Q4H RESP THERAPY PRN HHN SHORTNESS OF BREATH Last administered on 11/07/18at 22:10; Admin Dose 1.25 MG; Start 11/07/18 at 22:00 Ipratropium [place] (Atrovent 0.02% (Neb)) 0.5 mg Q4H RESP THERAPY PRN HHN SHORTNESS OF BREATH Last administered on 11/07/18at 22:10; Admin Dose 0.5 MG; Start 11/07/18 at 22:30 Vancomycin HCl 250 ml @ 125 mls/hr 1000 IVPB ; Start 11/08/18 at 10:00; Stop 11/08/18 at 19:30 CATARINA GONCALVES Nov 08, 2018 09:14
[2018-11-08] MEDS ORDERED: VANCOMYCIN 1 GM 250 ML IVPB SCH (10:00)
[2018-11-08] MEDS: APIXABAN 5 MG TABLET PO SCH ×2 (10:03→20:21)
[2018-11-08] MEDS: ASPIRIN 81 MG TAB PO SCH (10:03)
[2018-11-08] MEDS: ESCITALOPRAM 10 MG TAB PO SCH (10:04)
[2018-11-08] MEDS: FAMOTIDINE 20 MG TAB PO SCH (10:04)
--- NOTE | 2018-11-08 10:07 | CONS ---
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 s/p transmetatarsal amputation 11/07/18 Afib/flutter: new onset, rates controlled. Now on Eliquis CAD s/p CABG: CABG x4 10/07/18, ÁLVAREZ to LAD, SVG to ramus, SVG to OM1 sequenced to OM2. NSTEMI: Trop peak 1.1 and trended down. S/p cath 09/30/18 with diffuse multivessel CAD. CABG as above Upper GI bleed: due to anastomotic ulcer seen on EGD 09/26. No bleeding since. Hgb relatively stable. Anemia: due to above. s/p 5 units PRBCs and 2 units intraop. Kurt: Kaylee 1. Not on BB. No pauses or high grade block. 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 Unable to place right IJ. Now s/p left femoral permacath 10/24 which clotted but started to work again HTN H/o Billroth Depression: now on meds Cholecystitis: resolved -overnight hypotension from ?transient bacteremia/sepsis. Now improved but will need to monitor -restart Eliquis 2.5mg BID -antibiotics -ASA 81mg -continue to hold metoprolol as pt has bradycardia -lipitor 40mg -lasix 20mg PO -HD per nephrology Consultation Date/Type/Reason Admit Date/Time September 24, 2018 at 08:08 Initial Consult Date 09/24/18 Type of Consult Cardiology Date/Time of Note DATE: 11/08/18 TIME: 10:04 24 HR Interval Summary Free Text/Dictation s/p transmetatarsal amputation. Now as a wound vac Had hypotension overnight in the 80-90s. Now ~100 again. Exam/Review of Systems Vital Signs Vitals Vital Signs Date Temp Pulse Resp B/P (MAP) Pulse Ox O2 O2 Flow FiO2 Time Delivery Rate 11/08/18 77 08:20 11/08/18 97.7 18 99/44 (62) 99 Nasal 3.0 07:16 Cannula 11/07/18 27 22:11 Intake and Output 11/07/18 11/07/1811/08/19 1515:00 23:00 07:00 IntakeIntake Total 500 ml 400 ml OutputOutput Total 20 ml 200 ml 1868 ml BalanceBalance 480 ml 200 ml -1868 ml Exam Constitutional: alert, oriented Psych: no complaints, nl mood/affect Head: normocephalic, atraumatic Neck: supple; No jvd Respiratory: diminished breath sounds; No clear to auscultation Cardiovascular: regular rate and rhythm, systolic murmur (2/6 GREGORY); No edema Gastrointestinal: soft, non-tender; No distended 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: nl mental status, nl speech Labs Result Diagram: 11/06/18 0634 11/06/18 0634 Results 24hrs Laboratory Tests Test 11/07/18 11:41 11/07/18 14:15 11/07/18 17:22 11/07/18 20:31 Bedside Glucose 206 204 204 128 Test 11/08/18 05:00 11/08/18 08:15 Random Vancomycin 13.7 Level Bedside Glucose 203 Medications Medications Current Medications Oxycodone/ Acetaminophen (Percocet (5/ 325)) 1 tab Q3H PRN PO PAIN LEVEL 1-5 Last administered on 11/02/18 20:45; Admin Dose 1 TAB; Start 10/07/18 at 21:00 Ondansetron HCl (Zofran Inj) 4 mg Q6H PRN IV NAUSEA AND/OR VOMITING Last administered on 10/21/18 12:10; Admin Dose 4 MG; Start 10/07/18 at 21:00 Acetaminophen (Tylenol Tab) 650 mg Q3H PRN PO ELEVATED TEMPERATURE Last administered on 11/07/18 22:59; Admin Dose 650 MG; Start 10/07/18 at 21:00 Atorvastatin Calcium (Lipitor) 40 mg HS PO Last administered on 11/07/18 20:36; Admin Dose 40 MG; Start 10/08/18 at 21:00 Insulin Aspart (Novolog Insulin Pen) NOVOLOG *MODERATE* ALGORITHM WITH MEALS BEDTIME SC Last administered on 11/08/18 08:42; Admin Dose 4 UNIT; Start 10/09/18 at 11:30 Glucose (Glutose) 15 gm Q15M PRN PO DECREASED GLUCOSE; Start 10/09/18 at 12:00 Glucose (Glutose) 22.5 gm Q15M PRN PO DECREASED GLUCOSE; Start 10/09/18 at 12:00 Dextrose (D50w Syringe) 25 ml Q15M PRN IV DECREASED GLUCOSE; Start 10/09/18 at 12:00 Dextrose (D50w Syringe) 50 ml Q15M PRN IV DECREASED GLUCOSE; Start 10/09/18 at 12:00 Glucagon (Glucagen) 1 mg Q15M PRN IM DECREASED GLUCOSE; Start 10/09/18 at 12:00 Glucose (Glutose) 15 gm Q15M PRN BUCCAL DECREASED GLUCOSE Last administered on 10/20/18 18:52; Admin Dose 15 GM; Start 10/09/18 at 12:00 Diagnostic Test (Pha) (Accu-Chek) 1 ea AC MEALS AND BEDTIME XX Last administered on 11/08/18 07:25; Admin Dose 1 EA; Start 10/09/18 at 11:00 Aspirin (Aspirin) 81 mg DAILY PO Last administered on 11/06/18 08:43; Admin Dose 81 MG; Start 10/13/18 at 09:00 Albumin Human 100 ml @ 100 mls/hr DURING DIALYSIS PRN IV BLOOD PRESSURE SUPPORT Last administered on 11/01/18 18:32; Admin Dose 100 MLS/HR; Start 10/13/18 at 11:30 Magnesium Hydroxide (Milk Of Mag) 30 ml DAILY PRN PO CONSTIPATION; Start 10/16/18 at 06:30 Heparin Sodium (Porcine) (Heparin (1000 Units/ml)) 500 unit WITH DIALYSIS HE Last administered on 11/07/18 20:33; Admin Dose 500 UNIT; Start 10/20/18 at 10:00 Heparin Sodium (Porcine) (Heparin (1000 Units/ml)) 1,500 unit WITH DIALYSIS HE Last administered on 11/07/18 20:34; Admin Dose 1,500 UNIT; Start 10/20/18 at 10:00 Ondansetron HCl (Zofran Tab) 4 mg Q6H PRN PO NAUSEA AND/OR VOMITING; Start 10/20/18 at 17:30 Epoetin Jero-epbx (Retacrit (Esrd)) 10,000 unit MoWeFr@1700 SC Last administered on 11/07/18 17:23; Admin Dose 10,000 UNIT; Start 10/24/18 at 17:00 Guaifenesin/ Dextromethorphan (Robitussin Dm Liquid Cup) 10 ml Q4H PRN PO cough Last administered on 10/25/18 15:49; Admin Dose 10 ML; Start 10/24/18 at 11:00 Alteplase, Recombinant (Cathflo (Activase)) 4 mg MAY REPEAT X1 PRN CATHETER IF CATHETER REMAINS OCCULUDED Last administered on 11/07/18 23:13; Admin Dose 4 MG; Start 10/29/18 at 14:00 Apixaban (Eliquis) 2.5 mg BID PO Last administered on 11/06/18 20:19; Admin Dose 2.5 MG; Start 10/31/18 at 21:00 Insulin Aspart (Novolog Insulin Pen) 7 unit WITH MEALS SC Last administered on 11/08/18 08:41; Admin Dose 7 UNIT; Start 11/01/18 at 11:50 Insulin Glargine (Lantus) 21 units DAILY@0830 SC Last administered on 11/07/18 08:55; Admin Dose 21 UNITS; Start 11/02/18 at 08:30 Famotidine (Pepcid) 10 mg DAILY PO Last administered on 11/07/18 08:49; Admin Dose 10 MG; Start 11/03/18 at 09:00 Lactobacillus Acidophilus/ Rhamnosus (Culturelle) 1 cap BID PO Last administered on 11/07/18 20:36; Admin Dose 1 CAP; Start 11/02/18 at 21:00 Escitalopram Oxalate (Lexapro) 5 mg DAILY PO Last administered on 11/07/18 08:48; Admin Dose 5 MG; Start 11/03/18 at 09:00 Furosemide (Lasix) 20 mg DAILY PO Last administered on 11/07/18 08:49; Admin Dose 20 MG; Start 11/06/18 at 09:00 Piperacillin Sod/ Tazobactam Sod 50 ml @ 100 mls/hr Q8 IVPB Last administered on 11/08/18 06:09; Admin Dose 100 MLS/HR; Start 11/06/18 at 18:00 Miscellaneous Information (*Order Clarification Bulletin) MEDICATION REQUIRES CLARIFICATI... Q8H XX ; Start 11/06/18 at 21:30 Vancomycin HCl (Vanco Iv Per Pharmacy) PER PHARMACY DOSING NOTE XX ; Start 11/07/18 at 08:00 Miscellaneous Information 1 ea NOTE XX ; Start 11/07/18 at 18:00 Albuterol/ Ipratropium (Duoneb) 3 ml Q4H RESP THERAPY PRN HHN SHORTNESS OF BREATH; Start 11/07/18 at 22:00 Levalbuterol (Xopenex Neb) 1.25 mg Q4H RESP THERAPY PRN HHN SHORTNESS OF BREATH Last administered on 11/07/18at 22:10; Admin Dose 1.25 MG; Start 11/07/18 at 22:00 Ipratropium [place] (Atrovent 0.02% (Neb)) 0.5 mg Q4H RESP THERAPY PRN HHN SHORTNESS OF BREATH Last administered on 11/07/18at 22:10; Admin Dose 0.5 MG; Start 11/07/18 at 22:30 Vancomycin HCl 250 ml @ 125 mls/hr 1000 IVPB ; Start 11/08/18 at 10:00; Stop 11/08/18 at 19:30 LAVON SEE Nov 08, 2018 10:07
[2018-11-08] MEDS: LACTOBACILLUS RHAMNOSUS CAP PO SCH ×2 (10:08→20:21)
[2018-11-08] MEDS: INSULIN GLARGINE [LANTus] (100 UNITS/ML) SYG SC SCH (10:16)
[2018-11-08] MEDS: BALSAM PERU/CASTOR OIL 60 GM TUBE TOP SCH (10:17)
--- NOTE | 2018-11-08 13:43 | PN ---
Date/Time of Note Date/Time of Note DATE: 11/08/18 TIME: 13:42 Assessment/Plan VTE Prophylaxis Risk score (from Nsg)>0 risk: 9 SCD applied (from Nsg): Yes Pharmacological prophylaxis: heparin Lines/Catheters IV Catheter Type (from Nrsg): Mid Line Urinary Cath still in place: No Assessment/Plan Hospital Course Alert, no distress AOx3 RRR Breathing comfortably No RUQ pain, soft nt nd no edema, venous stasis Gangrenous toes 67 yo with numerous comorbidities including dyslipidemia, IDDM, ESRD on HD and severe PVD who is also anticoagulated on Eliquis/Plavix,here with worsening malaise. Subsequently underwent CABG for severe CAD. HD has been complicated by issues with difficult access as he has extensive venous clots. Foot gangrene - IV abx. Podiatry for perioperative management Cholecystitis: - Symptoms much better. s/p abx ESRD: - HD per renal via femoral access IVC clot: - Eliquis NSTEMI/Multivessel coronary artery disease - s/p LHC 09/30 - s/p CABG 10/07 - Cautiously resume beta blockers. - Anticoag, antiplatelet per CT surgery - Continue statin. Severe acute symptomatic blood loss anemia -Improved with multiple transfusion. -Continue iron Upper GI bleed -resolved -s/p EGD showed anastomotic ulcer (hx billroth II) -On PPI/Carafate #Mobitz type I heart block - Now post CABG will resume beta blockers - Maintain on telemetry #DMII -Sugars are stable -Continue current regimen Obesity with BMI 36.3 -Weight reduction advised. Anemia of ESRD -on Epogen with hemodialysis Depression -Started Paxil DVT prophylaxis: SCDs PUD prophylaxis: Protonix DC planning: To SNF Result Diagram: 11/06/18 0634 11/06/18 0634 Results 24hrs Laboratory Tests Test 11/07/18 14:15 11/07/18 17:22 11/07/18 20:31 11/08/18 05:00 Bedside Glucose 204 204 128 Random Vancomycin 13.7 Level Test 11/08/18 08:15 11/08/18 12:29 Bedside Glucose 203 159 Subjective 24 Hr Interval Summary Free Text/Dictation Patinet had Transmetatarsal amputation performed yesterday Exam/Review of Systems Exam Vitals Vital Signs Date Temp Pulse Resp B/P (MAP) Pulse Ox O2 O2 Flow FiO2 Time Delivery Rate 11/08/18 83 12:16 11/08/18 99.2 19 112/56 96 11:26 (74) 11/08/18 Nasal 2.0 08:00 Cannula 11/07/18 27 22:11 Intake and Output 11/07/18 11/07/18 11/08/18 1515:00 23:00 07:00 IntakeIntake Total 500 ml 400 ml OutputOutput Total 20 ml 200 ml 1868 ml BalanceBalance 480 ml 200 ml -1868 ml Results Results 24hrs Laboratory Tests Test 11/07/18 14:15 11/07/18 17:22 11/07/18 20:31 11/08/18 05:00 Bedside Glucose 204 204 128 Random Vancomycin 13.7 Level Test 11/08/18 08:15 11/08/18 12:29 Bedside Glucose 203 159 Medications Medication Current Medications Oxycodone/ Acetaminophen (Percocet (5/ 325)) 1 tab Q3H PRN PO PAIN LEVEL 1-5 Last administered on 11/02/18at 20:45; Admin Dose 1 TAB; Start 10/07/18 at 21:00 Ondansetron HCl (Zofran Inj) 4 mg Q6H PRN IV NAUSEA AND/OR VOMITING Last administered on 10/21/18at 12:10; Admin Dose 4 MG; Start 10/07/18 at 21:00 Acetaminophen (Tylenol Tab) 650 mg Q3H PRN PO ELEVATED TEMPERATURE Last administered on 11/07/18at 22:59; Admin Dose 650 MG; Start 10/07/18 at 21:00 Atorvastatin Calcium (Lipitor) 40 mg HS PO Last administered on 11/07/18at 20:36; Admin Dose 40 MG; Start 10/08/18 at 21:00 Insulin Aspart (Novolog Insulin Pen) NOVOLOG *MODERATE* ALGORITHM WITH MEALS BEDTIME SC Last administered on 11/08/18 12:47; Admin Dose 2 UNIT; Start 10/09/18 at 11:30 Glucose (Glutose) 15 gm Q15M PRN PO DECREASED GLUCOSE; Start 10/09/18 at 12:00 Glucose (Glutose) 22.5 gm Q15M PRN PO DECREASED GLUCOSE; Start 10/09/18 at 12:00 Dextrose (D50w Syringe) 25 ml Q15M PRN IV DECREASED GLUCOSE; Start 10/09/18 at 12:00 Dextrose (D50w Syringe) 50 ml Q15M PRN IV DECREASED GLUCOSE; Start 10/09/18 at 12:00 Glucagon (Glucagen) 1 mg Q15M PRN IM DECREASED GLUCOSE; Start 10/09/18 at 12:00 Glucose (Glutose) 15 gm Q15M PRN BUCCAL DECREASED GLUCOSE Last administered on 10/20/18 18:52; Admin Dose 15 GM; Start 10/09/18 at 12:00 Diagnostic Test (Pha) (Accu-Chek) 1 ea AC MEALS AND BEDTIME XX Last administered on 11/08/18 11:20; Admin Dose 1 EA; Start 10/09/18 at 11:00 Aspirin (Aspirin) 81 mg DAILY PO Last administered on 11/08/18 10:03; Admin Dose 81 MG; Start 10/13/18 at 09:00 Albumin Human 100 ml @ 100 mls/hr DURING DIALYSIS PRN IV BLOOD PRESSURE SUPPORT Last administered on 11/01/18 18:32; Admin Dose 100 MLS/HR; Start 10/13/18 at 11:30 Magnesium Hydroxide (Milk Of Mag) 30 ml DAILY PRN PO CONSTIPATION; Start 10/16/18 at 06:30 Heparin Sodium (Porcine) (Heparin (1000 Units/ml)) 500 unit WITH DIALYSIS HE Last administered on 11/07/18 20:33; Admin Dose 500 UNIT; Start 10/20/18 at 10:00 Heparin Sodium (Porcine) (Heparin (1000 Units/ml)) 1,500 unit WITH DIALYSIS HE Last administered on 11/07/18 20:34; Admin Dose 1,500 UNIT; Start 10/20/18 at 10:00 Ondansetron HCl (Zofran Tab) 4 mg Q6H PRN PO NAUSEA AND/OR VOMITING; Start 10/20/18 at 17:30 Epoetin Jero-epbx (Retacrit (Esrd)) 10,000 unit MoWeFr@1700 SC Last administered on 11/07/18 17:23; Admin Dose 10,000 UNIT; Start 10/24/18 at 17:00 Guaifenesin/ Dextromethorphan (Robitussin Dm Liquid Cup) 10 ml Q4H PRN PO cough Last administered on 10/25/18 15:49; Admin Dose 10 ML; Start 10/24/18 at 11:00 Alteplase, Recombinant (Cathflo (Activase)) 4 mg MAY REPEAT X1 PRN CATHETER IF CATHETER REMAINS OCCULUDED Last administered on 11/07/18at 23:13; Admin Dose 4 MG; Start 10/29/18 at 14:00 Apixaban (Eliquis) 2.5 mg BID PO Last administered on 11/08/18at 10:03; Admin Dose 2.5 MG; Start 10/31/18 at 21:00 Insulin Aspart (Novolog Insulin Pen) 7 unit WITH MEALS SC Last administered on 11/08/18 12:45; Admin Dose 7 UNIT; Start 11/01/18 at 11:50 Insulin Glargine (Lantus) 21 units DAILY@0830 SC Last administered on 11/08/18 10:16; Admin Dose 21 UNITS; Start 11/02/18 at 08:30 Famotidine (Pepcid) 10 mg DAILY PO Last administered on 11/08/18 10:04; Admin Dose 10 MG; Start 11/03/18 at 09:00 Lactobacillus Acidophilus/ Rhamnosus (Culturelle) 1 cap BID PO Last administered on 11/08/18 10:08; Admin Dose 1 CAP; Start 11/02/18 at 21:00 Escitalopram Oxalate (Lexapro) 5 mg DAILY PO Last administered on 11/08/18at 10:04; Admin Dose 5 MG; Start 11/03/18 at 09:00 Furosemide (Lasix) 20 mg DAILY PO Last administered on 11/07/18at 08:49; Admin Dose 20 MG; Start 11/06/18 at 09:00 Piperacillin Sod/ Tazobactam Sod 50 ml @ 100 mls/hr Q8 IVPB Last administered on 11/08/18 06:09; Admin Dose 100 MLS/HR; Start 11/06/18 at 18:00 Miscellaneous Information (*Order Clarification Bulletin) MEDICATION REQUIRES CLARIFICATI... Q8H XX ; Start 11/06/18 at 21:30 Vancomycin HCl (Vanco Iv Per Pharmacy) PER PHARMACY DOSING NOTE XX ; Start 11/07/18 at 08:00 Miscellaneous Information 1 ea NOTE XX ; Start 11/07/18 at 18:00 Albuterol/ Ipratropium (Duoneb) 3 ml Q4H RESP THERAPY PRN HHN SHORTNESS OF BREATH; Start 11/07/18 at 22:00 Levalbuterol (Xopenex Neb) 1.25 mg Q4H RESP THERAPY PRN HHN SHORTNESS OF BREATH Last administered on 11/07/18at 22:10; Admin Dose 1.25 MG; Start 11/07/18 at 22:00 Ipratropium [place] (Atrovent 0.02% (Neb)) 0.5 mg Q4H RESP THERAPY PRN HHN SHORTNESS OF BREATH Last administered on 11/07/18at 22:10; Admin Dose 0.5 MG; Start 11/07/18 at 22:30 Vancomycin HCl 250 ml @ 125 mls/hr 1000 IVPB Last administered on 11/08/18at 10:03; Admin Dose 125 MLS/HR; Start 11/08/18 at 10:00; Stop 11/08/18 at 19:30 PAUL LINDER MD Nov 08, 2018 13:43
[2018-11-08] MEDS: ALBUMIN HUMAN 25% 100 ML IV PRN (15:38)
[2018-11-08] MEDS: ACETAMINOPHEN 325 MG TAB PO PRN (17:29)
[2018-11-08] MEDS: HEPARIN 1000 UNITS/ML 10 ML INJ HE SCH ×2 (18:54→18:55)
[2018-11-08] MEDS: ATORVASTATIN 40 MG TAB PO SCH (20:21)
[2018-11-09] VITALS (10 sets, daily range): BP systolic 93–115; BP diastolic 37–46; PULSE 50–89; RESP 17–18
[2018-11-09] MEDS: PIPER-TAZO 2.25 GM (PMX) 50 ML IVPB SCH ×3 (05:47→22:15)
[2018-11-09] MEDS: ACCU-CHEK XX SCH ×4 (08:14→20:04)
[2018-11-09] MEDS: ESCITALOPRAM 10 MG TAB PO SCH (08:41)
[2018-11-09] MEDS: ASPIRIN 81 MG TAB PO SCH (08:41)
[2018-11-09] MEDS: LACTOBACILLUS RHAMNOSUS CAP PO SCH ×2 (08:42→20:01)
[2018-11-09] MEDS: FAMOTIDINE 20 MG TAB PO SCH (08:42)
[2018-11-09] MEDS: APIXABAN 5 MG TABLET PO SCH ×2 (08:42→20:01)
[2018-11-09] MEDS: FUROSEMIDE 40 MG TAB PO SCH (08:43)
[2018-11-09] MEDS: BALSAM PERU/CASTOR OIL 60 GM TUBE TOP SCH (08:45)
[2018-11-09] MEDS: INSULIN GLARGINE [LANTus] (100 UNITS/ML) SYG SC SCH (09:17)
[2018-11-09] MEDS: INSULIN ASPART [NOVOLOG] 3 ML PEN SC SCH ×7 (09:17→20:04)
--- NOTE | 2018-11-09 14:18 | CONS ---
Assessment/Plan Assessment/Plan Assessment/Plan (Daily) 1. acute Hyperkalemia due to GI bleeding- resolved 2.Acute fluid overload- now resolved 3. acute GI bleeding causing acute blood loss anemia- S/p Status post EGD/colonoscopy 09/27/19 -Anastomosis ulcer -Normal colonoscopy 4. Severe Anemia with Hb 5.8 on admission s/p 5 U PRBC transfusion for GI ble eding during this admission - pt also has anemia of ESRD 5. H/O HTN 6. H/O peripherla vascular disease 7. ESRD on HD -follow up at [facility] for scheduled HD on MWF 8. 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 S/p transmetatarsal resection 11/07. Continue abx for now. Wound vac. 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 Unable to place right IJ by IR due to central stenosis. Now s/p left femoral permacath 10/24 but still intermittently getting clotted- Discussed with Dr. Velasco - Recommended for higher level of care for diffficult HD access, will need IR or vascular surgery at [facility] to address HD access establishment due to IVC thrombosis and Central stenosis s/p HD on Saturday 2 L removed - Plan for HD today, , continue Eliquis 2.5 mg PO BID we will keep pt on MWF schedule ( his original schedule)- last 4 sessions HD catheter has worked change lasix to 20mg po daily with holding parameters due to low BP Epogen 69071 units SQ MWF- Hb 8.8 on 11/03/18- no labs since then will follow up Patient seen in collaboration with Dr Tobar Consultation Date/Type/Reason Admit Date/Time September 24, 2018 at 08:08 Initial Consult Date 09/24/18 Type of Consult NEPHROLOGY Date/Time of Note DATE: 11/09/18 TIME: 14:17 Exam/Review of Systems Exam Vitals Vital Signs Date Temp Pulse Resp B/P (MAP) Pulse Ox O2 O2 Flow FiO2 Time Delivery Rate 11/09/18 86 12:00 11/09/18 98.3 18 110/45 97 11:54 (66) 11/09/18 Nasal 2.0 07:45 Cannula 11/07/18 27 22:11 Intake and Output 11/08/18 11/08/18 11/09/18 1515:00 23:00 07:00 OutputOutput Total 2000 ml BalanceBalance -2000 ml Constitutional: alert, well developed Psych: nl mood/affect Head: atraumatic Eyes: nl lids, nl sclera ENMT: nl external ears & nose Neck: non-tender Respiratory: clear to auscultation Cardiovascular: nl pulses, other (s1s2) Gastrointestinal: soft, non-tender Musculoskeletal: joint tenderness, range of motion Extremities: edema, other (left foot- sp toes amputation- DDI ) Lymph: nontender Results Result Diagram: 11/06/1834 11/06/18 0634 Results 24hrs Laboratory Tests Test 11/08/18 17:27 11/08/18 20:18 11/09/18 08:08 11/09/18 11:57 Bedside Glucose 132 167 150 142 Medications Medication Current Medications Oxycodone/ Acetaminophen (Percocet (5/ 325)) 1 tab Q3H PRN PO PAIN LEVEL 1-5 Last administered on 11/02/18at 20:45; Admin Dose 1 TAB; Start 10/07/18 at 21:00 Ondansetron HCl (Zofran Inj) 4 mg Q6H PRN IV NAUSEA AND/OR VOMITING Last administered on 10/21/18at 12:10; Admin Dose 4 MG; Start 10/07/18 at 21:00 Acetaminophen (Tylenol Tab) 650 mg Q3H PRN PO ELEVATED TEMPERATURE Last administered on 11/08/18at 17:29; Admin Dose 650 MG; Start 10/07/18 at 21:00 Atorvastatin Calcium (Lipitor) 40 mg HS PO Last administered on 11/08/18at 20:21; Admin Dose 40 MG; Start 10/08/18 at 21:00 Insulin Aspart (Novolog Insulin Pen) NOVOLOG *MODERATE* ALGORITHM WITH MEALS BEDTIME SC Last administered on 11/09/18at 12:11; Admin Dose 2 UNIT; Start 10/09/18 at 11:30 Glucose (Glutose) 15 gm Q15M PRN PO DECREASED GLUCOSE; Start 10/09/18 at 12:00 Glucose (Glutose) 22.5 gm Q15M PRN PO DECREASED GLUCOSE; Start 10/09/18 at 12:00 Dextrose (D50w Syringe) 25 ml Q15M PRN IV DECREASED GLUCOSE; Start 10/09/18 at 12:00 Dextrose (D50w Syringe) 50 ml Q15M PRN IV DECREASED GLUCOSE; Start 10/09/18 at 12:00 Glucagon (Glucagen) 1 mg Q15M PRN IM DECREASED GLUCOSE; Start 10/09/18 at 12:00 Glucose (Glutose) 15 gm Q15M PRN BUCCAL DECREASED GLUCOSE Last administered on 10/20/18 18:52; Admin Dose 15 GM; Start 10/09/18 at 12:00 Diagnostic Test (Pha) (Accu-Chek) 1 ea AC MEALS AND BEDTIME XX Last administered on 11/09/18 12:12; Admin Dose 1 EA; Start 10/09/18 at 11:00 Aspirin (Aspirin) 81 mg DAILY PO Last administered on 11/09/18 08:41; Admin Dose 81 MG; Start 10/13/18 at 09:00 Albumin Human 100 ml @ 100 mls/hr DURING DIALYSIS PRN IV BLOOD PRESSURE SUPPORT Last administered on 11/08/18 15:38; Admin Dose 100 MLS/HR; Start 10/13/18 at 11:30 Magnesium Hydroxide (Milk Of Mag) 30 ml DAILY PRN PO CONSTIPATION; Start 10/16/18 at 06:30 Heparin Sodium (Porcine) (Heparin (1000 Units/ml)) 500 unit WITH DIALYSIS HE Last administered on 11/08/18 18:54; Admin Dose 500 UNIT; Start 10/20/18 at 10:00 Heparin Sodium (Porcine) (Heparin (1000 Units/ml)) 1,500 unit WITH DIALYSIS HE Last administered on 11/08/18 18:55; Admin Dose 1,500 UNIT; Start 10/20/18 at 10:00 Ondansetron HCl (Zofran Tab) 4 mg Q6H PRN PO NAUSEA AND/OR VOMITING; Start 10/20/18 at 17:30 Epoetin Jero-epbx (Retacrit (Esrd)) 10,000 unit MoWeFr@1700 SC Last administered on 11/07/18 17:23; Admin Dose 10,000 UNIT; Start 10/24/18 at 17:00 Guaifenesin/ Dextromethorphan (Robitussin Dm Liquid Cup) 10 ml Q4H PRN PO cough Last administered on 10/25/18 15:49; Admin Dose 10 ML; Start 10/24/18 at 11:00 Alteplase, Recombinant (Cathflo (Activase)) 4 mg MAY REPEAT X1 PRN CATHETER IF CATHETER REMAINS OCCULUDED Last administered on 11/07/18 23:13; Admin Dose 4 MG; Start 10/29/18 at 14:00 Apixaban (Eliquis) 2.5 mg BID PO Last administered on 11/09/18 08:42; Admin Dose 2.5 MG; Start 10/31/18 at 21:00 Insulin Aspart (Novolog Insulin Pen) 7 unit WITH MEALS SC Last administered on 11/09/18 12:11; Admin Dose 7 UNIT; Start 11/01/18 at 11:50 Insulin Glargine (Lantus) 21 units DAILY@0830 SC Last administered on 11/09/18 09:17; Admin Dose 21 UNITS; Start 11/02/18 at 08:30 Famotidine (Pepcid) 10 mg DAILY PO Last administered on 11/09/18 08:42; Admin Dose 10 MG; Start 11/03/18 at 09:00 Lactobacillus Acidophilus/ Rhamnosus (Culturelle) 1 cap BID PO Last administered on 11/09/18 08:42; Admin Dose 1 CAP; Start 11/02/18 at 21:00 Escitalopram Oxalate (Lexapro) 5 mg DAILY PO Last administered on 11/09/18 08:41; Admin Dose 5 MG; Start 11/03/18 at 09:00 Furosemide (Lasix) 20 mg DAILY PO Last administered on 11/09/18 08:43; Admin Dose 20 MG; Start 11/06/18 at 09:00 Piperacillin Sod/ Tazobactam Sod 50 ml @ 100 mls/hr Q8 IVPB Last administered on 11/09/18 14:12; Admin Dose 100 MLS/HR; Start 11/06/18 at 18:00 Miscellaneous Information (*Order Clarification Bulletin) MEDICATION REQUIRES CLARIFICATI... Q8H XX ; Start 11/06/18 at 21:30 Vancomycin HCl (Vanco Iv Per Pharmacy) PER PHARMACY DOSING NOTE XX ; Start 11/07/18 at 08:00 Miscellaneous Information 1 ea NOTE XX ; Start 11/07/18 at 18:00 Albuterol/ Ipratropium (Duoneb) 3 ml Q4H RESP THERAPY PRN HHN SHORTNESS OF BREATH; Start 11/07/18 at 22:00 Levalbuterol (Xopenex Neb) 1.25 mg Q4H RESP THERAPY PRN HHN SHORTNESS OF BREATH Last administered on 11/07/18at 22:10; Admin Dose 1.25 MG; Start 11/07/18 at 22:00 Ipratropium [place] (Atrovent 0.02% (Neb)) 0.5 mg Q4H RESP THERAPY PRN HHN SHORTNESS OF BREATH Last administered on 11/07/18at 22:10; Admin Dose 0.5 MG; Start 11/07/18 at 22:30 CATARINA GONCALVES Nov 09, 2018 14:17
--- NOTE | 2018-11-09 14:54 | PN ---
Date/Time of Note Date/Time of Note DATE: 11/09/18 TIME: 14:53 Assessment/Plan VTE Prophylaxis Risk score (from Ns)>0 risk: 7 SCD applied (from Ns): Yes Pharmacological prophylaxis: heparin Lines/Catheters IV [facility]ter [facility]from [facility] Mid Line Urinary Cath still in place: No Assessment/Plan Hospital Course Alert, no distress AOx3 RRR Breathing comfortably No RUQ pain, soft nt nd no edema, venous stasis Gangrenous toes 67 yo with numerous comorbidities including dyslipidemia, IDDM, ESRD on HD and severe PVD who is also anticoagulated on Eliquis/Plavix,here with worsening malaise. Subsequently underwent CABG for severe CAD. HD has been complicated by issues with difficult access as he has extensive venous clots. Also underwent foot resection for wet gangrene currently with wound vac. Foot gangrene - IV abx. S/p transmetatarsal resection 11/07. Continue abx for now. Wound vac. Management per podiatry Cholecystitis: - Symptoms much better. s/p abx ESRD: - HD per renal via femoral access IVC clot: - Eliquis NSTEMI/Multivessel coronary artery disease - s/p LHC 09/30 - s/p CABG 10/07 - Cautiously resume beta blockers. - Anticoag, antiplatelet per CT surgery - Continue statin. Severe acute symptomatic blood loss anemia -Improved with multiple transfusion. -Continue iron Upper GI bleed -resolved -s/p EGD showed anastomotic ulcer (hx billroth II) -On PPI/Carafate #Mobitz type I heart block - Now post CABG will resume beta blockers - Maintain on telemetry #DMII -Sugars are stable -Continue current regimen Obesity with BMI 36.3 -Weight reduction advised. Anemia of ESRD -on Epogen with hemodialysis Depression -Started Paxil DVT prophylaxis: SCDs PUD prophylaxis: Protonix DC planning: To SNF Result Diagram: 11/06/1834 11/06/1834 Results 24hrs Laboratory Tests Test 11/08/18 17:27 11/08/18 20:18 11/09/18 08:08 11/09/18 11:57 Bedside Glucose 132 167 150 142 Subjective 24 Hr Interval Summary Free Text/Dictation No change to clinical status Comfortable Exam/Review of Systems Exam Vitals Vital Signs Date Temp Pulse Resp B/P (MAP) Pulse Ox O2 O2 Flow FiO2 Time Delivery Rate 11/09/18 86 12:00 11/09/18 98.3 18 110/45 97 11:54 (66) 11/09/18 Nasal 2.0 07:45 Cannula 11/07/18 27 22:11 Intake and Output 11/08/18 11/08/18 11/09/18 1515:00 23:00 07:00 OutputOutput Total 2000 ml BalanceBalance -2000 ml Results Results 24hrs Laboratory Tests Test 11/08/18 17:27 11/08/18 20:18 11/09/18 08:08 11/09/18 11:57 Bedside Glucose 132 167 150 142 Medications Medication Current Medications Oxycodone/ Acetaminophen (Percocet (5/ 325)) 1 tab Q3H PRN PO PAIN LEVEL 1-5 Last administered on 11/02/18at 20:45; Admin Dose 1 TAB; Start 10/07/18 at 21:00 Ondansetron HCl (Zofran Inj) 4 mg Q6H PRN IV NAUSEA AND/OR VOMITING Last administered on 10/21/18at 12:10; Admin Dose 4 MG; Start 10/07/18 at 21:00 Acetaminophen (Tylenol Tab) 650 mg Q3H PRN PO ELEVATED TEMPERATURE Last administered on 11/08/18at 17:29; Admin Dose 650 MG; Start 10/07/18 at 21:00 Atorvastatin Calcium (Lipitor) 40 mg HS PO Last administered on 11/08/18at 20:21; Admin Dose 40 MG; Start 10/08/18 at 21:00 Insulin Aspart (Novolog Insulin Pen) NOVOLOG *MODERATE* ALGORITHM WITH MEALS BEDTIME SC Last administered on 11/09/18at 12:11; Admin Dose 2 UNIT; Start 10/09/18 at 11:30 Glucose (Glutose) 15 gm Q15M PRN PO DECREASED GLUCOSE; Start 10/09/18 at 12:00 Glucose (Glutose) 22.5 gm Q15M PRN PO DECREASED GLUCOSE; Start 10/09/18 at 12:00 Dextrose (D50w Syringe) 25 ml Q15M PRN IV DECREASED GLUCOSE; Start 10/09/18 at 12:00 Dextrose (D50w Syringe) 50 ml Q15M PRN IV DECREASED GLUCOSE; Start 10/09/18 at 12:00 Glucagon (Glucagen) 1 mg Q15M PRN IM DECREASED GLUCOSE; Start 10/09/18 at 12:00 Glucose (Glutose) 15 gm Q15M PRN BUCCAL DECREASED GLUCOSE Last administered on 10/20/18 18:52; Admin Dose 15 GM; Start 10/09/18 at 12:00 Diagnostic Test (Pha) (Accu-Chek) 1 ea AC MEALS AND BEDTIME XX Last administered on 11/09/18 12:12; Admin Dose 1 EA; Start 10/09/18 at 11:00 Aspirin (Aspirin) 81 mg DAILY PO Last administered on 11/09/18 08:41; Admin Dose 81 MG; Start 10/13/18 at 09:00 Albumin Human 100 ml @ 100 mls/hr DURING DIALYSIS PRN IV BLOOD PRESSURE SUPPORT Last administered on 11/08/18 15:38; Admin Dose 100 MLS/HR; Start 10/13/18 at 11:30 Magnesium Hydroxide (Milk Of Mag) 30 ml DAILY PRN PO CONSTIPATION; Start 10/16/18 at 06:30 Heparin Sodium (Porcine) (Heparin (1000 Units/ml)) 500 unit WITH DIALYSIS HE Last administered on 11/08/18 18:54; Admin Dose 500 UNIT; Start 10/20/18 at 10:00 Heparin Sodium (Porcine) (Heparin (1000 Units/ml)) 1,500 unit WITH DIALYSIS HE Last administered on 11/08/18 18:55; Admin Dose 1,500 UNIT; Start 10/20/18 at 10:00 Ondansetron HCl (Zofran Tab) 4 mg Q6H PRN PO NAUSEA AND/OR VOMITING; Start 10/20/18 at 17:30 Epoetin Jero-epbx (Retacrit (Esrd)) 10,000 unit MoWeFr@1700 SC Last administered on 11/07/18 17:23; Admin Dose 10,000 UNIT; Start 10/24/18 at 17:00 Guaifenesin/ Dextromethorphan (Robitussin Dm Liquid Cup) 10 ml Q4H PRN PO cough Last administered on 10/25/18 15:49; Admin Dose 10 ML; Start 10/24/18 at 11:00 Alteplase, Recombinant (Cathflo (Activase)) 4 mg MAY REPEAT X1 PRN CATHETER IF CATHETER REMAINS OCCULUDED Last administered on 11/07/18 23:13; Admin Dose 4 MG; Start 10/29/18 at 14:00 Apixaban (Eliquis) 2.5 mg BID PO Last administered on 11/09/18 08:42; Admin Dose 2.5 MG; Start 10/31/18 at 21:00 Insulin Aspart (Novolog Insulin Pen) 7 unit WITH MEALS SC Last administered on 11/09/18 12:11; Admin Dose 7 UNIT; Start 11/01/18 at 11:50 Insulin Glargine (Lantus) 21 units DAILY@0830 SC Last administered on 11/09/18 09:17; Admin Dose 21 UNITS; Start 11/02/18 at 08:30 Famotidine (Pepcid) 10 mg DAILY PO Last administered on 11/09/18 08:42; Admin Dose 10 MG; Start 11/03/18 at 09:00 Lactobacillus Acidophilus/ Rhamnosus (Culturelle) 1 cap BID PO Last administered on 11/09/18 08:42; Admin Dose 1 CAP; Start 11/02/18 at 21:00 Escitalopram Oxalate (Lexapro) 5 mg DAILY PO Last administered on 11/09/18 08:41; Admin Dose 5 MG; Start 11/03/18 at 09:00 Furosemide (Lasix) 20 mg DAILY PO Last administered on 11/09/18 08:43; Admin Dose 20 MG; Start 11/06/18 at 09:00 Piperacillin Sod/ Tazobactam Sod 50 ml @ 100 mls/hr Q8 IVPB Last administered on 11/09/18 14:12; Admin Dose 100 MLS/HR; Start 11/06/18 at 18:00 Miscellaneous Information (*Order Clarification Bulletin) MEDICATION REQUIRES CLARIFICATI... Q8H XX ; Start 11/06/18 at 21:30 Vancomycin HCl (Vanco Iv Per Pharmacy) PER PHARMACY DOSING NOTE XX ; Start 11/07/18 at 08:00 Miscellaneous Information 1 ea NOTE XX ; Start 11/07/18 at 18:00 Albuterol/ Ipratropium (Duoneb) 3 ml Q4H RESP THERAPY PRN HHN SHORTNESS OF BREATH; Start 11/07/18 at 22:00 Levalbuterol (Xopenex Neb) 1.25 mg Q4H RESP THERAPY PRN HHN SHORTNESS OF BREATH Last administered on 11/07/18at 22:10; Admin Dose 1.25 MG; Start 11/07/18 at 22:00 Ipratropium [place] (Atrovent 0.02% (Neb)) 0.5 mg Q4H RESP THERAPY PRN HHN SHORTNESS OF BREATH Last administered on 11/07/18at 22:10; Admin Dose 0.5 MG; Start 11/07/18 at 22:30 PAUL LINDER MD Nov 09, 2018 14:54
[2018-11-09] MEDS: ACETAMINOPHEN 325 MG TAB PO PRN (20:01)
[2018-11-09] MEDS: ATORVASTATIN 40 MG TAB PO SCH (20:01)
[2018-11-10] VITALS (24 sets, daily range): BP systolic 92–123; BP diastolic 27–54; PULSE 61–88; RESP 18–22
[2018-11-10] MEDS: PIPER-TAZO 2.25 GM (PMX) 50 ML IVPB SCH ×3 (06:24→23:01)
[2018-11-10] MEDS: ACCU-CHEK XX SCH ×4 (07:28→21:08)
[2018-11-10] MEDS: INSULIN ASPART [NOVOLOG] 3 ML PEN SC SCH ×7 (07:47→21:00)
[2018-11-10] MEDS: INSULIN GLARGINE [LANTus] (100 UNITS/ML) SYG SC SCH (07:54)
[2018-11-10] MEDS: FAMOTIDINE 20 MG TAB PO SCH (08:06)
[2018-11-10] MEDS: ESCITALOPRAM 10 MG TAB PO SCH (08:06)
[2018-11-10] MEDS: APIXABAN 5 MG TABLET PO SCH ×2 (08:07→21:08)
[2018-11-10] MEDS: LACTOBACILLUS RHAMNOSUS CAP PO SCH ×2 (08:07→21:07)
[2018-11-10] MEDS: ASPIRIN 81 MG TAB PO SCH (08:08)
[2018-11-10] MEDS: BALSAM PERU/CASTOR OIL 60 GM TUBE TOP SCH (08:08)
[2018-11-10] MEDS: FUROSEMIDE 40 MG TAB PO SCH (08:08)
[2018-11-10] MEDS: HEPARIN 1000 UNITS/ML 10 ML INJ HE SCH ×2 (08:21)
[2018-11-10] MEDS: ALBUMIN HUMAN 25% 100 ML IV PRN (08:57)
[2018-11-10] MEDS: ALTEPLASE (CATHFLO) 2 MG INJ CATHETER PRN (11:09)
--- NOTE | 2018-11-10 11:37 | CONS ---
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 s/p transmetatarsal amputation 11/07/18 Afib/flutter: new onset, rates controlled. Now on Eliquis CAD s/p CABG: CABG x4 10/07/18, ÁLVAREZ to LAD, SVG to ramus, SVG to OM1 sequenced to OM2. NSTEMI: Trop peak 1.1 and trended down. S/p cath 09/30/18 with diffuse multivessel CAD. CABG as above Upper GI bleed: due to anastomotic ulcer seen on EGD 09/26. No bleeding since. Hgb relatively stable. Anemia: due to above. s/p 5 units PRBCs and 2 units intraop. Now low again [place]: Kaylee 1. Not on BB. No pauses or high grade block. 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 Unable to place right IJ. Now s/p left femoral permacath 10/24 which clotted but started to work again HTN H/o Billroth Depression: now on meds Cholecystitis: resolved -transfusion per primary -continue Eliquis 2.5mg BID as no bleeding -antibiotics -ASA 81mg -continue to hold metoprolol as pt has bradycardia -lipitor 40mg -lasix 20mg PO -HD per nephrology Consultation Date/Type/Reason Admit Date/Time September 24, 2018 at 08:08 Initial Consult Date 09/24/18 Type of Consult Cardiology Date/Time of Note DATE: 11/10/18 TIME: 11:36 24 HR Interval Summary Free Text/Dictation Hgb 6.6. No melena. Had not been checked in a few days so possibly related to intraop losses. No complaints Exam/Review of Systems Vital Signs Vitals Vital Signs Date Temp Pulse Resp B/P (MAP) Pulse Ox O2 O2 Flow FiO2 Time Delivery Rate 11/10/18 Nasal 2.0 08:30 Cannula 11/10/18 78 18 104/43 95 08:20 (63) 11/10/18 98.2 07:31 11/07/18 27 22:11 Intake and Output 11/09/18 11/09/18 11/10/18 1515:00 23:00 07:00 IntakeIntake Total 300 ml BalanceBalance 300 ml Exam Constitutional: alert, oriented Psych: no complaints, nl mood/affect Head: normocephalic, atraumatic Neck: No jvd Respiratory: diminished breath sounds; No clear to auscultation Cardiovascular: No regular rate and rhythm, No edema Gastrointestinal: soft, non-tender; No distended 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: nl mental status, nl speech Labs Result Diagram: 11/10/18 0815 11/10/18 0815 Results 24hrs Laboratory Tests Test 11/09/18 11:57 11/09/18 17:38 11/09/18 20:00 11/10/18 07:45 Bedside Glucose 142 154 145 110 Test 11/10/18 08:15 White Blood Count 9.0 Red Blood Count 2.61 L Hemoglobin 6.6 *L Hematocrit 22.7 L Mean Corpuscular 87.0 Volume Mean Corpuscular 25.3 L Hemoglobin Mean Corpuscular 29.1 L Hemoglobin Concent Red Cell 17.5 H Distribution Width Platelet Count 346 Mean Platelet Volume 10.2 Immature 0.400 Granulocytes % Neutrophils % 71.1 Lymphocytes % 21.5 Monocytes % 4.3 Eosinophils % 2.0 Basophils % 0.7 Nucleated Red Blood 0.0 Cells % Immature 0.040 H Granulocytes # Neutrophils # 6.4 Lymphocytes # 1.9 Monocytes # 0.4 Eosinophils # 0.2 Basophils # 0.1 Nucleated Red Blood 0.0 Cells # Sodium Level 134 L Potassium Level 3.4 L Chloride Level 99 Carbon Dioxide Level 21 Anion Gap 14 H Blood Urea Nitrogen 44 H Creatinine 6.20 H Est Glomerular 9 L Filtrat Rate mL/min Glucose Level 100 Calcium Level 7.1 L Medications Medications Current Medications Oxycodone/ Acetaminophen (Percocet (5/ 325)) 1 tab Q3H PRN PO PAIN LEVEL 1-5 Last administered on 11/02/18at 20:45; Admin Dose 1 TAB; Start 10/07/18 at 21:00 Ondansetron HCl (Zofran Inj) 4 mg Q6H PRN IV NAUSEA AND/OR VOMITING Last administered on 10/21/18at 12:10; Admin Dose 4 MG; Start 10/07/18 at 21:00 Acetaminophen (Tylenol Tab) 650 mg Q3H PRN PO ELEVATED TEMPERATURE Last administered on 11/09/18 20:01; Admin Dose 650 MG; Start 10/07/18 at 21:00 Atorvastatin Calcium (Lipitor) 40 mg HS PO Last administered on 11/09/18 20:01; Admin Dose 40 MG; Start 10/08/18 at 21:00 Insulin Aspart (Novolog Insulin Pen) NOVOLOG *MODERATE* ALGORITHM WITH MEALS BEDTIME SC Last administered on 11/09/18 18:12; Admin Dose 2 UNIT; Start 10/09/18 at 11:30 Glucose (Glutose) 15 gm Q15M PRN PO DECREASED GLUCOSE; Start 10/09/18 at 12:00 Glucose (Glutose) 22.5 gm Q15M PRN PO DECREASED GLUCOSE; Start 10/09/18 at 12:00 Dextrose (D50w Syringe) 25 ml Q15M PRN IV DECREASED GLUCOSE; Start 10/09/18 at 12:00 Dextrose (D50w Syringe) 50 ml Q15M PRN IV DECREASED GLUCOSE; Start 10/09/18 at 12:00 Glucagon (Glucagen) 1 mg Q15M PRN IM DECREASED GLUCOSE; Start 10/09/18 at 12:00 Glucose (Glutose) 15 gm Q15M PRN BUCCAL DECREASED GLUCOSE Last administered on 10/20/18at 18:52; Admin Dose 15 GM; Start 10/09/18 at 12:00 Diagnostic Test (Pha) (Accu-Chek) 1 ea AC MEALS AND BEDTIME XX Last administered on 11/10/18 07:28; Admin Dose 1 EA; Start 10/09/18 at 11:00 Aspirin (Aspirin) 81 mg DAILY PO Last administered on 11/10/18at 08:08; Admin Dose 81 MG; Start 10/13/18 at 09:00 Albumin Human 100 ml @ 100 mls/hr DURING DIALYSIS PRN IV BLOOD PRESSURE SUPPORT Last administered on 11/10/18 08:57; Admin Dose 100 MLS/HR; Start 10/13/18 at 11:30 Magnesium Hydroxide (Milk Of Mag) 30 ml DAILY PRN PO CONSTIPATION; Start 10/16/18 at 06:30 Heparin Sodium (Porcine) (Heparin (1000 Units/ml)) 500 unit WITH DIALYSIS HE Last administered on 11/10/18 08:21; Admin Dose 500 UNIT; Start 10/20/18 at 10:00 Heparin Sodium (Porcine) (Heparin (1000 Units/ml)) 1,500 unit WITH DIALYSIS HE Last administered on 11/10/18 08:21; Admin Dose 1,500 UNIT; Start 10/20/18 at 10:00 Ondansetron HCl (Zofran Tab) 4 mg Q6H PRN PO NAUSEA AND/OR VOMITING; Start 10/20/18 at 17:30 Epoetin Jero-epbx (Retacrit (Esrd)) 10,000 unit MoWeFr@1700 SC Last administered on 11/07/18 17:23; Admin Dose 10,000 UNIT; Start 10/24/18 at 17:00 Guaifenesin/ Dextromethorphan (Robitussin Dm Liquid Cup) 10 ml Q4H PRN PO cough Last administered on 10/25/18 15:49; Admin Dose 10 ML; Start 10/24/18 at 11:00 Alteplase, Recombinant (Cathflo (Activase)) 4 mg MAY REPEAT X1 PRN CATHETER IF CATHETER REMAINS OCCULUDED Last administered on 11/10/18 11:09; Admin Dose 4 MG ; Start 10/29/18 at 14:00 Apixaban (Eliquis) 2.5 mg BID PO Last administered on 11/10/18 08:07; Admin Dose 2.5 MG; Start 10/31/18 at 21:00 Insulin Aspart (Novolog Insulin Pen) 7 unit WITH MEALS SC Last administered on 11/10/18 07:54; Admin Dose 7 UNIT; Start 11/01/18 at 11:50 Insulin Glargine (Lantus) 21 units DAILY@0830 SC Last administered on 11/10/18 07:54; Admin Dose 21 UNITS; Start 11/02/18 at 08:30 Famotidine (Pepcid) 10 mg DAILY PO Last administered on 11/10/18 08:06; Admin Dose 10 MG; Start 11/03/18 at 09:00 Lactobacillus Acidophilus/ Rhamnosus (Culturelle) 1 cap BID PO Last admi nistered on 11/10/18 08:07; Admin Dose 1 CAP; Start 11/02/18 at 21:00 Escitalopram Oxalate (Lexapro) 5 mg DAILY PO Last administered on 11/10/18 08:06; Admin Dose 5 MG; Start 11/03/18 at 09:00 Furosemide (Lasix) 20 mg DAILY PO Last administered on 11/10/18at 08:08; Admin Dose 20 MG; Start 11/06/18 at 09:00 Piperacillin Sod/ Tazobactam Sod 50 ml @ 100 mls/hr Q8 IVPB Last administered on 11/10/18at 06:24; Admin Dose 100 MLS/HR; Start 11/06/18 at 18:00 Miscellaneous Information (*Order Clarification Bulletin) MEDICATION REQUIRES CLARIFICATI... Q8H XX ; Start 11/06/18 at 21:30 Vancomycin HCl (Vanco Iv Per Pharmacy) PER PHARMACY DOSING NOTE XX ; Start 11/07/18 at 08:00 Miscellaneous Information 1 ea NOTE XX ; Start 11/07/18 at 18:00 Albuterol/ Ipratropium (Duoneb) 3 ml Q4H RESP THERAPY PRN HHN SHORTNESS OF BREATH; Start 11/07/18 at 22:00 Levalbuterol (Xopenex Neb) 1.25 mg Q4H RESP THERAPY PRN HHN SHORTNESS OF BREATH Last administered on 11/07/18at 22:10; Admin Dose 1.25 MG; Start 11/07/18 at 22:00 Ipratropium [place] (Atrovent 0.02% (Neb)) 0.5 mg Q4H RESP THERAPY PRN HHN SHORTNESS OF BREATH Last administered on 11/07/18at 22:10; Admin Dose 0.5 MG; Start 11/07/18 at 22:30 ALVON SEE Nov 10, 2018 11:37
[2018-11-10] MEDS: OXYCODONE/ACETAMINOPHEN (5/325) TAB PO PRN (12:11)
--- NOTE | 2018-11-10 16:28 | PN ---
Date/Time of Note Date/Time of Note DATE: 11/10/18 TIME: 16:27 Assessment/Plan VTE Prophylaxis Risk score (from Nsg)>0 risk: 11 Pharmacological prophylaxis: apixaban Lines/Catheters IV Catheter Type (from Nrsg): Mid Line Urinary Cath still in place: No Assessment/Plan Hospital Course 67 yo with numerous comorbidities including dyslipidemia, IDDM, ESRD on HD and severe PVD who is also anticoagulated on Eliquis/Plavix,here with worsening malaise. Subsequently underwent CABG for severe CAD. HD has been complicated by issues with difficult access as he has extensive venous clots. Also underwent foot resection for wet gangrene currently with wound vac. Foot gangrene - IV abx. S/p transmetatarsal resection 11/07. Continue abx for now. Wound vac. Management per podiatry Cholecystitis: - Symptoms much better. s/p abx ESRD: - HD per renal via femoral access IVC clot: - Eliquis NSTEMI/Multivessel coronary artery disease - s/p LHC 09/30 - s/p CABG 10/07 - Cautiously resume beta blockers. - Anticoag, antiplatelet per CT surgery - Continue statin. Severe acute symptomatic blood loss anemia -Improved with multiple transfusion. -Continue iron Upper GI bleed -resolved -s/p EGD showed anastomotic ulcer (hx billroth II) -On PPI/Carafate Mobitz type I heart block - Now post CABG will resume beta blockers - Maintain on telemetry DMII -Sugars are stable -Continue current regimen Obesity with BMI 36.3 -Weight reduction advised. Anemia of ESRD -on Epogen with hemodialysis Depression -Started Paxil DVT prophylaxis: Eliquis PUD prophylaxis: Protonix DC planning: To [facility] Result Diagram: 11/10/18 1522 11/10/18 0815 Results 24hrs Laboratory Tests Test 11/09/18 17:38 11/09/18 20:00 11/10/18 07:45 11/10/18 08:15 Bedside Glucose 154 145 110 White Blood Count 9.0 Red Blood Count 2.61 L Hemoglobin 6.6 *L Hematocrit 22.7 L Mean Corpuscular 87.0 Volume Mean Corpuscular 25.3 L Hemoglobin Mean Corpuscular 29.1 L Hemoglobin Concent Red Cell 17.5 H Distribution Width Platelet Count 346 Mean Platelet Volume 10.2 Immature 0.400 Granulocytes % Neutrophils % 71.1 Lymphocytes % 21.5 Monocytes % 4.3 Eosinophils % 2.0 Basophils % 0.7 Nucleated Red Blood 0.0 Cells % Immature 0.040 H Granulocytes # Neutrophils # 6.4 Lymphocytes # 1.9 Monocytes # 0.4 Eosinophils # 0.2 Basophils # 0.1 Nucleated Red Blood 0.0 Cells # Sodium Level 134 L Potassium Level 3.4 L Chloride Level 99 Carbon Dioxide Level 21 Anion Gap 14 H Blood Urea Nitrogen 44 H Creatinine 6.20 H Est Glomerular 9 L Filtrat Rate mL/min Glucose Level 100 Calcium Level 7.1 L Test 11/10/18 11:41 11/10/18 15:22 Bedside Glucose 102 Hemoglobin 7.3 L Hematocrit 25.6 L Subjective 24 Hr Interval Summary Constitutional: no complaints Exam/Review of Systems Exam Vitals Vital Signs Date Temp Pulse Resp B/P (MAP) Pulse Ox O2 O2 Flow FiO2 Time Delivery Rate 11/10/18 2.0 16:10 11/10/18 99.5 81 18 123/51 91 15:21 (75) 11/10/18 Nasal 08:30 Cannula 11/07/18 27 22:11 Intake and Output 11/09/18 11/09/18 11/10/18 1414:59 22:59 06:59 IntakeIntake Total 300 ml BalanceBalance 300 ml Constitutional: alert, oriented Respiratory: clear to auscultation Cardiovascular: regular rate and rhythm Gastrointestinal: soft; No distended Musculoskeletal: No nl extremities to inspection Results Results 24hrs Laboratory Tests Test 11/09/18 17:38 11/09/18 20:00 11/10/18 07:45 11/10/18 08:15 Bedside Glucose 154 145 110 White Blood Count 9.0 Red Blood Count 2.61 L Hemoglobin 6.6 *L Hematocrit 22.7 L Mean Corpuscular 87.0 Volume Mean Corpuscular 25.3 L Hemoglobin Mean Corpuscular 29.1 L Hemoglobin Concent Red Cell 17.5 H Distribution Width Platelet Count 346 Mean Platelet Volume 10.2 Immature 0.400 Granulocytes % Neutrophils % 71.1 Lymphocytes % 21.5 Monocytes % 4.3 Eosinophils % 2.0 Basophils % 0.7 Nucleated Red Blood 0.0 Cells % Immature 0.040 H Granulocytes # Neutrophils # 6.4 Lymphocytes # 1.9 Monocytes # 0.4 Eosinophils # 0.2 Basophils # 0.1 Nucleated Red Blood 0.0 Cells # Sodium Level 134 L Potassium Level 3.4 L Chloride Level 99 Carbon Dioxide Level 21 Anion Gap 14 H Blood Urea Nitrogen 44 H Creatinine 6.20 H Est Glomerular 9 L Filtrat Rate mL/min Glucose Level 100 Calcium Level 7.1 L Test 11/10/18 11:41 11/10/18 15:22 Bedside Glucose 102 Hemoglobin 7.3 L Hematocrit 25.6 L Medications Medication Current Medications Oxycodone/ Acetaminophen (Percocet (5/ 325)) 1 tab Q3H PRN PO PAIN LEVEL 1-5 Last administered on 11/10/18at 12:11; Admin Dose 1 TAB; Start 10/07/18 at 21:00 Ondansetron HCl (Zofran Inj) 4 mg Q6H PRN IV NAUSEA AND/OR VOMITING Last admini stered on 10/21/18at 12:10; Admin Dose 4 MG; Start 10/07/18 at 21:00 Acetaminophen (Tylenol Tab) 650 mg Q3H PRN PO ELEVATED TEMPERATURE Last administered on 11/09/18at 20:01; Admin Dose 650 MG; Start 10/07/18 at 21:00 Atorvastatin Calcium (Lipitor) 40 mg HS PO Last administered on 11/09/18 20:01; Admin Dose 40 MG; Start 10/08/18 at 21:00 Insulin Aspart (Novolog Insulin Pen) NOVOLOG *MODERATE* ALGORITHM WITH MEALS BEDTIME SC Last administered on 11/09/18at 18:12; Admin Dose 2 UNIT; Start 10/09/18 at 11:30 Glucose (Glutose) 15 gm Q15M PRN PO DECREASED GLUCOSE; Start 10/09/18 at 12:00 Glucose (Glutose) 22.5 gm Q15M PRN PO DECREASED GLUCOSE; Start 10/09/18 at 12:00 Dextrose (D50w Syringe) 25 ml Q15M PRN IV DECREASED GLUCOSE; Start 10/09/18 at 12:00 Dextrose (D50w Syringe) 50 ml Q15M PRN IV DECREASED GLUCOSE; Start 10/09/18 at 12:00 Glucagon (Glucagen) 1 mg Q15M PRN IM DECREASED GLUCOSE; Start 10/09/18 at 12:00 Glucose (Glutose) 15 gm Q15M PRN BUCCAL DECREASED GLUCOSE Last administered on 10/20/18 18:52; Admin Dose 15 GM; Start 10/09/18 at 12:00 Diagnostic Test (Pha) (Accu-Chek) 1 ea AC MEALS AND BEDTIME XX Last administered on 11/10/18 11:36; Admin Dose 1 EA; Start 10/09/18 at 11:00 Aspirin (Aspirin) 81 mg DAILY PO Last administered on 11/10/18 08:08; Admin Dose 81 MG; Start 10/13/18 at 09:00 Albumin Human 100 ml @ 100 mls/hr DURING DIALYSIS PRN IV BLOOD PRESSURE SUPPORT Last administered on 11/10/18 08:57; Admin Dose 100 MLS/HR; Start 10/13/18 at 11:30 Magnesium Hydroxide (Milk Of Mag) 30 ml DAILY PRN PO CONSTIPATION; Start 10/16/18 at 06:30 Heparin Sodium (Porcine) (Heparin (1000 Units/ml)) 500 unit WITH DIALYSIS HE Last administered on 11/10/18 08:21; Admin Dose 500 UNIT; Start 10/20/18 at 10:00 Heparin Sodium (Porcine) (Heparin (1000 Units/ml)) 1,500 unit WITH DIALYSIS HE Last administered on 11/10/18 08:21; Admin Dose 1,500 UNIT; Start 10/20/18 at 10:00 Ondansetron HCl (Zofran Tab) 4 mg Q6H PRN PO NAUSEA AND/OR VOMITING; Start 10/20/18 at 17:30 Epoetin Jero-epbx (Retacrit (Esrd)) 10,000 unit MoWeFr@1700 SC Last administered on 11/07/18 17:23; Admin Dose 10,000 UNIT; Start 10/24/18 at 17:00 Guaifenesin/ Dextromethorphan (Robitussin Dm Liquid Cup) 10 ml Q4H PRN PO cough Last administered on 10/25/18 15:49; Admin Dose 10 ML; Start 10/24/18 at 11:00 Alteplase, Recombinant (Cathflo (Activase)) 4 mg MAY REPEAT X1 PRN CATHETER IF CATHETER REMAINS OCCULUDED Last administered on 11/10/18 11:09; Admin Dose 4 MG; Start 10/29/18 at 14:00 Apixaban (Eliquis) 2.5 mg BID PO Last administered on 11/10/18 08:07; Admin Dose 2.5 MG; Start 10/31/18 at 21:00 Insulin Aspart (Novolog Insulin Pen) 7 unit WITH MEALS SC Last administered on 11/10/18at 11:47; Admin Dose 7 UNIT; Start 11/01/18 at 11:50 Insulin Glargine (Lantus) 21 units DAILY@0830 SC Last administered on 11/10/18 07:54; Admin Dose 21 UNITS; Start 11/02/18 at 08:30 Famotidine (Pepcid) 10 mg DAILY PO Last administered on 11/10/18 08:06; Admin Dose 10 MG; Start 11/03/18 at 09:00 Lactobacillus Acidophilus/ Rhamnosus (Culturelle) 1 cap BID PO Last administered on 11/10/18 08:07; Admin Dose 1 CAP; Start 11/02/18 at 21:00 Escitalopram Oxalate (Lexapro) 5 mg DAILY PO Last administered on 11/10/18 08:06; Admin Dose 5 MG; Start 11/03/18 at 09:00 Furosemide (Lasix) 20 mg DAILY PO Last administered on 11/10/18 08:08; Admin Dose 20 MG; Start 11/06/18 at 09:00 Piperacillin Sod/ Tazobactam Sod 50 ml @ 100 mls/hr Q8 IVPB Last administered on 11/10/18at 13:41; Admin Dose 100 MLS/HR; Start 11/06/18 at 18:00 Miscellaneous Information (*Order Clarification Bulletin) MEDICATION REQUIRES CLARIFICATI... Q8H XX ; Start 11/06/18 at 21:30 Vancomycin HCl (Vanco Iv Per Pharmacy) PER PHARMACY DOSING NOTE XX ; Start 11/07/18 at 08:00 Miscellaneous Information 1 ea NOTE XX ; Start 11/07/18 at 18:00 Albuterol/ Ipratropium (Duoneb) 3 ml Q4H RESP THERAPY PRN HHN SHORTNESS OF BREATH; Start 11/07/18 at 22:00 Levalbuterol (Xopenex Neb) 1.25 mg Q4H RESP THERAPY PRN HHN SHORTNESS OF BREATH Last administered on 11/07/18at 22:10; Admin Dose 1.25 MG; Start 11/07/18 at 22:00 Ipratropium [place] (Atrovent 0.02% (Neb)) 0.5 mg Q4H RESP THERAPY PRN HHN SHORTNESS OF BREATH Last administered on 11/07/18at 22:10; Admin Dose 0.5 MG; Start 11/07/18 at 22:30 Miscellaneous Information (*Rx Drug Level Order Reminder*) RANDOM VANCO W/ AM LABS... 0500 ONCE XX ; Start 11/11/18 at 05:00; Stop 11/11/18 at 05:01 LORI VINES Nov 10, 2018 16:28
[2018-11-10] MEDS: EPOETIN ALFA-EPBX (ESRD) 10,000 UNIT/ML VIAL SC SCH (17:49)
--- NOTE | 2018-11-10 20:29 | CONS ---
Assessment/Plan Assessment/Plan Assessment/Plan (Daily) Hypokalemia- replace K 1. acute Hyperkalemia due to GI bleeding- resolved 2.Acute fluid overload- now resolved 3. acute GI bleeding causing acute blood loss anemia- S/p Status post EGD/colonoscopy 09/27/19 -Anastomosis ulcer -Normal colonoscopy 4. Severe Anemia with Hb 5.8 on admission s/p 5 U PRBC transfusion for GI bleeding during this admission - pt also has anemia of ESRD 5. H/O HTN 6. H/O peripherla vascular disease 7. ESRD on HD -follow up at [facility] for scheduled HD on MWF 8. 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 S/p transmetatarsal resection 11/07. Continue abx for now. Wound vac. 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 Unable to place right IJ by IR due to central stenosis. Now s/p left femoral permacath 10/24 but still intermittently getting clotted- Discussed with Dr. Velasco - Recommended for higher level of care for diffficult HD access, will need IR or vascular surgery at [facility]iary center to address HD access establishment due to IVC thrombosis and Central stenosis s/p HD on Saturday 2 L removed - Plan for HD today, , continue Eliquis 2.5 mg PO BID we will keep pt on MWF schedule ( his original schedule)- last 4 sessions HD catheter has worked change lasix to 20mg po daily with holding parameters due to low BP Epogen 85796 units SQ MWF- Hb 8.8 on 11/03/18- no labs since then will follow up Patient seen in collaboration with Dr Tobar Consultation Date/Type/Reason Admit Date/Time September 24, 2018 at 08:08 Initial Consult Date 09/24/18 Type of Consult NEPHROLOGY Date/Time of Note DATE: 11/10/18 TIME: 20:29 24 HR Interval Summary Free Text/Dictation low K- replace K H/H - 7.3 today no events reported last night dw staff Detailed Summary Eyes: no complaints ENT: no complaints Respiratory: no complaints Cardiovascular: no complaints Gastrointestinal: no complaints Genitourinary: no complaints Musculoskeletal: bone/joint pain, restricted range of motion Skin: other (Left foot- DDI) Psychological: nl mood/affect Exam/Review of Systems Exam Vitals Vital Signs Date Temp Pulse Resp B/P (MAP) Pulse Ox O2 O2 Flow FiO2 Time Delivery Rate 11/10/18 83 20:00 11/10/18 98.8 18 107/47 94 Room Air 19:42 (67) 11/10/18 2.0 16:10 11/07/18 27 22:11 Intake and Output 11/09/18 11/09/18 11/10/18 1515:00 23:00 07:00 IntakeIntake Total 300 ml BalanceBalance 300 ml Constitutional: alert, well developed Psych: nl mood/affect Head: atraumatic Eyes: nl lids, nl sclera ENMT: nl external ears & nose Neck: non-tender Respiratory: clear to auscultation Cardiovascular: nl pulses, other (S1S2) Gastrointestinal: soft, non-tender Musculoskeletal: joint tenderness, range of motion 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: nl speech Skin: other (Left foot- DDI ) Lymph: nontender Results Result Diagram: 11/10/18 1522 11/10/18 0815 Results 24hrs Laboratory Tests Test 11/10/18 07:45 11/10/18 08:15 11/10/18 11:41 11/10/18 15:22 Bedside Glucose 110 102 White Blood Count 9.0 Red Blood Count 2.61 L Hemoglobin 6.6 *L 7.3 L Hematocrit 22.7 L 25.6 L Mean Corpuscular 87.0 Volume Mean Corpuscular 25.3 L Hemoglobin Mean Corpuscular 29.1 L Hemoglobin Concent Red Cell 17.5 H Distribution Width Platelet Count 346 Mean Platelet Volume 10.2 Immature 0.400 Granulocytes % Neutrophils % 71.1 Lymphocytes % 21.5 Monocytes % 4.3 Eosinophils % 2.0 Basophils % 0.7 Nucleated Red Blood 0.0 Cells % Immature 0.040 H Granulocytes # Neutrophils # 6.4 Lymphocytes # 1.9 Monocytes # 0.4 Eosinophils # 0.2 Basophils # 0.1 Nucleated Red Blood 0.0 Cells # Sodium Level 134 L Potassium Level 3.4 L Chloride Level 99 Carbon Dioxide Level 21 Anion Gap 14 H Blood Urea Nitrogen 44 H Creatinine 6.20 H Est Glomerular 9 L Filtrat Rate mL/min Glucose Level 100 Calcium Level 7.1 L Test 11/10/18 17:40 11/10/18 18:21 Bedside Glucose 69 L 83 Medications Medication Current Medications Oxycodone/ Acetaminophen (Percocet (5/ 325)) 1 tab Q3H PRN PO PAIN LEVEL 1-5 Last administered on 11/10/18 12:11; Admin Dose 1 TAB; Start 10/07/18 at 21:00 Ondansetron HCl (Zofran Inj) 4 mg Q6H PRN IV NAUSEA AND/OR VOMITING Last administered on 10/21/18 12:10; Admin Dose 4 MG; Start 10/07/18 at 21:00 Acetaminophen (Tylenol Tab) 650 mg Q3H PRN PO ELEVATED TEMPERATURE Last administered on 11/09/18 20:01; Admin Dose 650 MG; Start 10/07/18 at 21:00 Atorvastatin Calcium (Lipitor) 40 mg HS PO Last administered on 11/09/18 20:01; Admin Dose 40 MG; Start 10/08/18 at 21:00 Insulin Aspart (Novolog Insulin Pen) NOVOLOG *MODERATE* ALGORITHM WITH MEALS BEDTIME SC Last administered on 11/09/18 18:12; Admin Dose 2 UNIT; Start 10/09/18 at 11:30 Glucose (Glutose) 15 gm Q15M PRN PO DECREASED GLUCOSE; Start 10/09/18 at 12:00 Glucose (Glutose) 22.5 gm Q15M PRN PO DECREASED GLUCOSE; Start 10/09/18 at 12:00 Dextrose (D50w Syringe) 25 ml Q15M PRN IV DECREASED GLUCOSE; Start 10/09/18 at 12:00 Dextrose (D50w Syringe) 50 ml Q15M PRN IV DECREASED GLUCOSE; Start 10/09/18 at 12:00 Glucagon (Glucagen) 1 mg Q15M PRN IM DECREASED GLUCOSE; Start 10/09/18 at 12:00 Glucose (Glutose) 15 gm Q15M PRN BUCCAL DECREASED GLUCOSE Last administered on 10/20/18 18:52; Admin Dose 15 GM; Start 10/09/18 at 12:00 Diagnostic Test (Pha) (Accu-Chek) 1 ea AC MEALS AND BEDTIME XX Last administered on 11/10/18 17:28; Admin Dose 1 EA; Start 10/09/18 at 11:00 Aspirin (Aspirin) 81 mg DAILY PO Last administered on 11/10/18 08:08; Admin Do se 81 MG; Start 10/13/18 at 09:00 Albumin Human 100 ml @ 100 mls/hr DURING DIALYSIS PRN IV BLOOD PRESSURE SUPPORT Last administered on 11/10/18 08:57; Admin Dose 100 MLS/HR; Start 10/13/18 at 11:30 Magnesium Hydroxide (Milk Of Mag) 30 ml DAILY PRN PO CONSTIPATION; Start 10/16/18 at 06:30 Heparin Sodium (Porcine) (Heparin (1000 Units/ml)) 500 unit WITH DIALYSIS HE Last administered on 11/10/18 08:21; Admin Dose 500 UNIT; Start 10/20/18 at 10:00 Heparin Sodium (Porcine) (Heparin (1000 Units/ml)) 1,500 unit WITH DIALYSIS HE Last administered on 11/10/18 08:21; Admin Dose 1,500 UNIT; Start 10/20/18 at 10:00 Ondansetron HCl (Zofran Tab) 4 mg Q6H PRN PO NAUSEA AND/OR VOMITING; Start 09/25 12/12 at 17:30 Epoetin Jero-epbx (Retacrit (Esrd)) 10,000 unit MoWeFr@1700 SC Last administered on 11/10/18 17:49; Admin Dose 10,000 UNIT; Start 10/24/18 at 17:00 Guaifenesin/ Dextromethorphan (Robitussin Dm Liquid Cup) 10 ml Q4H PRN PO cough Last administered on 10/25/18 15:49; Admin Dose 10 ML; Start 10/24/18 at 11:00 Alteplase, Recombinant (Cathflo (Activase)) 4 mg MAY REPEAT X1 PRN CATHETER IF CATHETER REMAINS OCCULUDED Last administered on 11/10/18 11:09; Admin Dose 4 MG; Start 10/29/18 at 14:00 Apixaban (Eliquis) 2.5 mg BID PO Last administered on 11/10/18 08:07; Admin Dose 2.5 MG; Start 10/31/18 at 21:00 Insulin Aspart (Novolog Insulin Pen) 7 unit WITH MEALS SC Last administered on 11/10/18 11:47; Admin Dose 7 UNIT; Start 11/01/18 at 11:50 Insulin Glargine (Lantus) 21 units DAILY@0830 SC Last administered on 11/10/18at 07:54; Admin Dose 21 UNITS; Start 11/02/18 at 08:30 Famotidine (Pepcid) 10 mg DAILY PO Last administered on 11/10/18at 08:06; Admin Dose 10 MG; Start 11/03/18 at 09:00 Lactobacillus Acidophilus/ Rhamnosus (Culturelle) 1 cap BID PO Last administered on 11/10/18at 08:07; Admin Dose 1 CAP; Start 11/02/18 at 21:00 Escitalopram Oxalate (Lexapro) 5 mg DAILY PO Last administered on 11/10/18at 08:06; Admin Dose 5 MG; Start 11/03/18 at 09:00 Furosemide (Lasix) 20 mg DAILY PO Last administered on 11/10/18at 08:08; Admin Dose 20 MG; Start 11/06/18 at 09:00 Piperacillin Sod/ Tazobactam Sod 50 ml @ 100 mls/hr Q8 IVPB Last administered on 11/10/18at 13:41; Admin Dose 100 MLS/HR; Start 11/06/18 at 18:00 Miscellaneous Information (*Order Clarification Bulletin) MEDICATION REQUIRES CLARIFICATI... Q8H XX ; Start 11/06/18 at 21:30 Vancomycin HCl (Vanco Iv Per Pharmacy) PER PHARMACY DOSING NOTE XX ; Start 11/07/18 at 08:00 Miscellaneous Information 1 ea NOTE XX ; Start 11/07/18 at 18:00 Albuterol/ Ipratropium (Duoneb) 3 ml Q4H RESP THERAPY PRN HHN SHORTNESS OF BREATH; Start 11/07/18 at 22:00 Levalbuterol (Xopenex Neb) 1.25 mg Q4H RESP THERAPY PRN HHN SHORTNESS OF BREATH Last administered on 11/07/18at 22:10; Admin Dose 1.25 MG; Start 11/07/18 at 22:00 Ipratropium [place] (Atrovent 0.02% (Neb)) 0.5 mg Q4H RESP THERAPY PRN HHN SHORTNESS OF BREATH Last administered on 11/07/18at 22:10; Admin Dose 0.5 MG; Start 11/07/18 at 22:30 Miscellaneous Information (*Rx Drug Level Order Reminder*) RANDOM VANCO W/ AM LABS... 0500 ONCE XX ; Start 11/11/18 at 05:00; Stop 11/11/18 at 05:01 CATARINA GONCALVES Nov 10, 2018 20:29
[2018-11-10] MEDS: ATORVASTATIN 40 MG TAB PO SCH (21:07)
[2018-11-11] VITALS (10 sets, daily range): BP systolic 94–125; BP diastolic 36–64; PULSE 62–82; RESP 18–21
[2018-11-11] MEDS: PIPER-TAZO 2.25 GM (PMX) 50 ML IVPB SCH (05:59)
--- NOTE | 2018-11-11 06:36 | PN ---
Date/Time of Note Date/Time of Note DATE: 11/10/18 TIME: 07:36 late entry note Assessment/Plan Lines/Catheters IV Catheter Type (from Nrsg): Mid Line Pierre in Place (from Nrsg): No Assessment/Plan Chief Complaint/Hosp Course -Bilateral lower extremity atherosclerosis with left lower extremity with left lower extremity gangrene: It seems that the patient's left lower extremity third toe has become dry gangrene and worsening. Unfortunately his first and second toe have also become gangrene with erythema. We are hoping that the patient's lower extremity atherosclerotic disease will not worsen during this period of time. There is concern he may require an amputation should he not improve and develop worsening gangrene. This was discussed in detail with the family given his plethora of medical conditions. -He has developed new cellulitis of the forefoot over the past 24hours associated with pain per 's reporting. Will have our podiatry colleagues evaluate patient as there appears to require an I&D. From vascular standpoint the patient will likely be limited with intervention given his recent episode of GI bleed and CABG. -S/P LLE TMA -Bilateral lower extremity varicose veins and edema: The patient has component of mixed disease (venous insufficiency and arterial sufficiency). At the moment, we recommend elevation of the bilateral lower extremities while at rest. No further intervention will be needed and can be followed as an outpatient in regards to venous insufficiency. -End-stage renal disease: At the moment the patient's left upper extremity fistula is nonfunctional. 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 I've been asked by our multidisciplinary team to re-evaluate. Upon lower extremity venogram there is large collateralization that has developed with the iliac veins secondary to the infrarenal IVC. I have thoroughly spoken with the patient's family and at the bedside regarding further interventions and they understand the full scope of what is involved and limitations at [facility]. [place] to perform multidisciplinary approach for transhepatic catheter intervention and no IR interventionalist available. Further, may be a candidate for azygous catheter placement however unable to perform re-canalization secondary to limitation of our angio suite. As the patient will require adva nced intervention for dialysis access will need to be transferred to a tertiary center secondary to limited resources. Our multidisciplinary team has agreed with the plan and involved in the decision. 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 Subjective 24 Hr Interval Summary Constitutional: no complaints Exam/Review of Systems Vital Signs Vitals Vital Signs Date Temp Pulse Resp B/P (MAP) Pulse Ox O2 O2 Flow FiO2 Time Delivery Rate 11/13/18 97.9 79 18 122/50 95 07:23 (74) 11/13/18 Nasal 04:36 Cannula 11/12/18 2.0 20:30 11/12/18 21 04:24 Intake and Output 11/12/18 11/12/18 11/13/18 1515:00 23:00 07:00 IntakeIntake Total 240 ml 240 ml 350 ml OutputOutput Total 1000 ml 0 ml BalanceBalance -760 ml 240 ml 350 ml Exam Free Text/Dictation GENERAL: Awake. PULMONARY: Coarse BS bilaterally, CARDIOVASCULAR: S1, S2 present. Dressing intact ABDOMEN: Soft, nontender, nondistended. Bowel sounds positive. Large truncal obesity. EXTREMITIES: Right lower extremity palpable femoral pulse, nonpalpable pedal pulse. Motor, sensory intact. Cap refill 3 to 4 seconds. Presence of varicose veins and larg e leg. Left lower extremity palpable femoral pulse, nonpalpable pedal pulse. Motor, sensory intact. Cap refill 3 to 4 seconds. TMA site with dressing intact, Heel gangrene developed. groin catheter intact, cellulitis and tenderness decreased Varicose veins and edema of the left lower extremity with presence of mild lipodermatosclerosis. Left upper extremity: Palpable brachial pulse, motor/sensory intact, fistula with bruit and thrill not present Results Result Diagram: 11/13/1825 11/13/18 0625 VANIA PEREYRA MD Nov 11, 2018 06:36
[2018-11-11] MEDS: ACCU-CHEK XX SCH ×4 (07:45→21:22)
[2018-11-11] MEDS: INSULIN ASPART [NOVOLOG] 3 ML PEN SC SCH ×7 (07:55→21:28)
[2018-11-11] MEDS: LACTOBACILLUS RHAMNOSUS CAP PO SCH ×2 (08:42→21:16)
[2018-11-11] MEDS: ASPIRIN 81 MG TAB PO SCH (08:42)
[2018-11-11] MEDS: APIXABAN 5 MG TABLET PO SCH ×2 (08:43→21:16)
[2018-11-11] MEDS: FUROSEMIDE 40 MG TAB PO SCH (08:43)
[2018-11-11] MEDS: ESCITALOPRAM 10 MG TAB PO SCH (08:43)
[2018-11-11] MEDS: BALSAM PERU/CASTOR OIL 60 GM TUBE TOP SCH (08:44)
[2018-11-11] MEDS: FAMOTIDINE 20 MG TAB PO SCH (08:44)
[2018-11-11] MEDS: ACETAMINOPHEN 325 MG TAB PO PRN ×2 (08:50→21:34)
[2018-11-11] MEDS: INSULIN GLARGINE [LANTus] (100 UNITS/ML) SYG SC SCH (08:55)
--- NOTE | 2018-11-11 11:51 | CONS ---
Assessment/Plan Assessment/Plan Hospital Course (Demo Recall) 67 yo male with multiple medical problems including DM, ESRD, PVD and now with wet gangrene of left foot with abscess formation in need for urgent surgical intervention. -Patient and were advised about condition. Patient's left foot s/p debridement, however, there continues to be necrotic tissue, minimal drainage for dorsal aspect left foot 4th interspace. Patient would need formal OR debridement (open TMA) today urgently given wet gangrene and abscess formation to resolve the infection. Patient and were advised about the urgent need for this procedure. All risks of procedure were discussed including but not limited to: bleeding, further need for surgery, further gangrene changes of left foot, loss of limb or life. Patient and understand all above risks and benefits. -Patient to hold of on Dialysis till after schedule procedure. -Patient needs to continue with current antibiotics, wound cultures are pending. -Patient would benefit from formal ID consult. -Further vascular intervention per Dr. Mejia. Assessment/Plan (Daily) 67 yo male with multiple medical problems including DM, ESRD, PVD 4 days s/p left foot open TMA now on wound VAC. -continuing with wound VAC recommended to be changed MWF. -Wound cultures grew citrobacter, sensitive to bactrim. Please adjust antibiotics appropriately. -Patient would benefit from possible Angio, discussed with vascular surgeon Dr. Mejia. -Patient would eventually need skin substitute graft and further application of wound VAC prior to discharge. Consultation Date/Type/Reason Admit Date/Time September 24, 2018 at 08:08 Initial Consult Date 10/01/18 Date/Time of Note DATE: 11/11/18 TIME: 11:01 24 HR Interval Summary Free Text/Dictation Patient seen bedside 4 days s/p left foot open TMA. Patient currently on wound VAC, changed yesterday by nursing staff. No fevers, chills, nausea or vomiting. Exam/Review of Systems Exam Vitals Vital Signs Date Temp Pulse Resp B/P (MAP) Pulse Ox O2 O2 Flow FiO2 Time Delivery Rate 11/11/18 Nasal 2.0 08:30 Cannula 11/11/18 71 08:29 11/11/18 97.6 18 94/36 (55) 95 07:39 11/07/18 27 22:11 Intake and Output 11/10/18 11/10/18 11/11/18 1515:00 23:00 07:00 IntakeIntake Total 600 ml 350 ml OutputOutput Total 2800 ml 400 ml BalanceBalance -2800 ml 200 ml 350 ml Exam Left foot s/p open TMA. Wound VAC is intact. I did check patient's pictures from chart, wound continues to be clean with no significant necrosis at this time. Results Result Diagram: 11/11/18 0622 11/11/18 0622 Results 24hrs Laboratory Tests Test 11/10/18 11:41 11/10/18 15:22 11/10/18 17:40 11/10/18 18:21 Bedside Glucose 102 69 L 83 Hemoglobin 7.3 L Hematocrit 25.6 L Test 11/10/18 21:05 11/11/18 06:22 11/11/18 08:39 Bedside Glucose 114 137 White Blood Count 8.8 Red Blood Count 2.73 L Hemoglobin 7.0 L Hematocrit 23.9 L Mean Corpuscular 87.5 Volume Mean Corpuscular 25.6 L Hemoglobin Mean Corpuscular 29.3 L Hemoglobin Concent Red Cell 17.5 H Distribution Width Platelet Count 338 Mean Platelet Volume 9.8 Immature 0.600 H Granulocytes % Neutrophils % 64.4 Lymphocytes % 25.3 Monocytes % 7.1 Eosinophils % 1.8 Basophils % 0.8 Nucleated Red Blood 0.0 Cells % Immature 0.050 H Granulocytes # Neutrophils # 5.6 Lymphocytes # 2.2 Monocytes # 0.6 Eosinophils # 0.2 Basophils # 0.1 Nucleated Red Blood 0.0 Cells # Sodium Level 135 Potassium Level 3.7 Chloride Level 101 Carbon Dioxide Level 25 Anion Gap 9 # Blood Urea Nitrogen 28 #H Creatinine 4.67 #H Est Glomerular 13 L Filtrat Rate mL/min Glucose Level 133 Calcium Level 7.3 L Random Vancomycin 13.8 Level Medications Medication Current Medications Oxycodone/ Acetaminophen (Percocet (5/ 325)) 1 tab Q3H PRN PO PAIN LEVEL 1-5 Last administered on 11/10/18at 12:11; Admin Dose 1 TAB; Start 10/07/18 at 21:00 Ondansetron HCl (Zofran Inj) 4 mg Q6H PRN IV NAUSEA AND/OR VOMITING Last administered on 10/21/18at 12:10; Admin Dose 4 MG; Start 10/07/18 at 21:00 Acetaminophen (Tylenol Tab) 650 mg Q3H PRN PO ELEVATED TEMPERATURE Last administered on 11/11/18 08:50; Admin Dose 650 MG; Start 10/07/18 at 21:00 Atorvastatin Calcium (Lipitor) 40 mg HS PO Last administered on 11/10/18 21:07; Admin Dose 40 MG; Start 10/08/18 at 21:00 Insulin Aspart (Novolog Insulin Pen) NOVOLOG *MODERATE* ALGORITHM WITH MEALS BEDTIME SC Last administered on 11/09/18 18:12; Admin Dose 2 UNIT; Start 10/09/18 at 11:30 Glucose (Glutose) 15 gm Q15M PRN PO DECREASED GLUCOSE; Start 10/09/18 at 12:00 Glucose (Glutose) 22.5 gm Q15M PRN PO DECREASED GLUCOSE; Start 10/09/18 at 12:00 Dextrose (D50w Syringe) 25 ml Q15M PRN IV DECREASED GLUCOSE; Start 10/09/18 at 12:00 Dextrose (D50w Syringe) 50 ml Q15M PRN IV DECREASED GLUCOSE; Start 10/09/18 at 12:00 Glucagon (Glucagen) 1 mg Q15M PRN IM DECREASED GLUCOSE; Start 10/09/18 at 12:00 Glucose (Glutose) 15 gm Q15M PRN BUCCAL DECREASED GLUCOSE Last administered on 10/20/18 18:52; Admin Dose 15 GM; Start 10/09/18 at 12:00 Diagnostic Test (Pha) (Accu-Chek) 1 ea AC MEALS AND BEDTIME XX Last administered on 11/11/18 07:45; Admin Dose 1 EA; Start 10/09/18 at 11:00 Aspirin (Aspirin) 81 mg DAILY PO Last administered on 11/11/18 08:42; Admin Dose 81 MG; Start 10/13/18 at 09:00 Albumin Human 100 ml @ 100 mls/hr DURING DIALYSIS PRN IV BLOOD PRESSURE SUPPORT Last administered on 11/10/18 08:57; Admin Dose 100 MLS/HR; Start 10/13/18 at 11:30 Magnesium Hydroxide (Milk Of Mag) 30 ml DAILY PRN PO CONSTIPATION; Start 10/16/18 at 06:30 Heparin Sodium (Porcine) (Heparin (1000 Units/ml)) 500 unit WITH DIALYSIS HE Last administered on 11/10/18 08:21; Admin Dose 500 UNIT; Start 10/20/18 at 10:00 Heparin Sodium (Porcine) (Heparin (1000 Units/ml)) 1,500 unit WITH DIALYSIS HE Last administered on 11/10/18 08:21; Admin Dose 1,500 UNIT; Start 10/20/18 at 10:00 Ondansetron HCl (Zofran Tab) 4 mg Q6H PRN PO NAUSEA AND/OR VOMITING; Start 10/20/18 at 17:30 Epoetin Jero-epbx (Retacrit (Esrd)) 10,000 unit MoWeFr@1700 SC Last administered on 11/10/18 17:49; Admin Dose 10,000 UNIT; Start 10/24/18 at 17:00 Guaifenesin/ Dextromethorphan (Robitussin Dm Liquid Cup) 10 ml Q4H PRN PO cough Last administered on 10/25/18 15:49; Admin Dose 10 ML; Start 10/24/18 at 11:00 Alteplase, Recombinant (Cathflo (Activase)) 4 mg MAY REPEAT X1 PRN CATHETER IF CATHETER REMAINS OCCULUDED Last administered on 11/10/18 11:09; Admin Dose 4 MG; Start 10/29/18 at 14:00 Apixaban (Eliquis) 2.5 mg BID PO Last administered on 11/11/18 08:43; Admin Dose 2.5 MG; Start 10/31/18 at 21:00 Insulin Aspart (Novolog Insulin Pen) 7 unit WITH MEALS SC Last administered on 11/10/18 11:47; Admin Dose 7 UNIT; Start 11/01/18 at 11:50 Insulin Glargine (Lantus) 21 units DAILY@0830 SC Last administered on 11/11/18 08:55; Admin Dose 21 UNITS; Start 11/02/18 at 08:30 Famotidine (Pepcid) 10 mg DAILY PO Last administered on 11/11/18 08:44; Admin Dose 10 MG; Start 11/03/18 at 09:00 Lactobacillus Acidophilus/ Rhamnosus (Culturelle) 1 cap BID PO Last administered on 11/11/18 08:42; Admin Dose 1 CAP; Start 11/02/18 at 21:00 Escitalopram Oxalate (Lexapro) 5 mg DAILY PO Last administered on 6/18/19at 08:43; Admin Dose 5 MG; Start 11/03/18 at 09:00 Furosemide (Lasix) 20 mg DAILY PO Last administered on 11/10/18at 08:08; Admin Dose 20 MG; Start 11/06/18 at 09:00 Piperacillin Sod/ Tazobactam Sod 50 ml @ 100 mls/hr Q8 IVPB Last administered on 11/11/18at 05:59; Admin Dose 100 MLS/HR; Start 11/06/18 at 18:00 Miscellaneous Information (*Order Clarification Bulletin) MEDICATION REQUIRES CLARIFICATI... Q8H XX ; Start 11/06/18 at 21:30 Vancomycin HCl (Vanco Iv Per Pharmacy) PER PHARMACY DOSING NOTE XX ; Start 11/07/18 at 08:00 Miscellaneous Information 1 ea NOTE XX ; Start 11/07/18 at 18:00 Albuterol/ Ipratropium (Duoneb) 3 ml Q4H RESP THERAPY PRN HHN SHORTNESS OF BREATH; Start 11/07/18 at 22:00 Levalbuterol (Xopenex Neb) 1.25 mg Q4H RESP THERAPY PRN HHN SHORTNESS OF BREATH Last administered on 11/07/18at 22:10; Admin Dose 1.25 MG; Start 11/07/18 at 22:00 Ipratropium [place] (Atrovent 0.02% (Neb)) 0.5 mg Q4H RESP THERAPY PRN HHN SHORTNESS OF BREATH Last administered on 11/07/18at 22:10; Admin Dose 0.5 MG; Start 11/07/18 at 22:30 PUSHPA WALL DPM Nov 11, 2018 11:51
--- NOTE | 2018-11-11 12:49 | CONS ---
Assessment/Plan Assessment/Plan Assessment/Plan (Daily) Hypokalemia- reSOLVED 1. acute Hyperkalemia due to GI bleeding- resolved 2.Acute fluid overload- now resolved 3. acute GI bleeding causing acute blood loss anemia- S/p Status post EGD/colonoscopy 09/27/19 -Anastomosis ulcer -Normal colonoscopy 4. Severe Anemia with Hb 5.8 on admission s/p 5 U PRBC transfusion for GI bleeding during this admission - pt also has anemia of ESRD 5. H/O HTN 6. H/O peripherla vascular disease 7. ESRD on HD -follow up at [facility] for scheduled HD on MWF 8. 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 S/p transmetatarsal resection 11/07. Continue abx for now. Wound vac. 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 Unable to place right IJ by IR due to central stenosis. Now s/p left femoral permacath 10/24 but still intermittently getting clotted- Discussed with Dr. Velasco - Recommended for higher level of care for diffficult HD access, will need IR or vascular surgery at [facility] to address HD access establishment due to IVC thrombosis and Central stenosis s/p HD on Saturday 2 L removed - Plan for HD today, , continue Eliquis 2.5 mg PO BID we will keep pt on MWF schedule ( his original schedule)- last 4 sessions HD catheter has worked change lasix to 20mg po daily with holding parameters due to low BP Epogen 94733 units SQ MWF- Hb 8.8 on 11/03/18- no labs since then will follow up Patient seen in collaboration with Dr Tobar Consultation Date/Type/Reason Admit Date/Time September 24, 2018 at 08:08 Initial Consult Date 09/24/18 Type of Consult NEPHROLOGY Reason for Consultation ESRD on HD Date/Time of Note DATE: 11/11/18 TIME: 12:49 24 HR Interval Summary Constitutional: requiring O2 Detailed Summary Eyes: no complaints ENT: no complaints Respiratory: no complaints Cardiovascular: no complaints Gastrointestinal: no complaints Musculoskeletal: bone/joint pain, restricted range of motion Neurologic: confusion Endocrine: no complaints Exam/Review of Systems Exam Vitals Vital Signs Date Temp Pulse Resp B/P (MAP) Pulse Ox O2 O2 Flow FiO2 Time Delivery Rate 11/11/18 71 12:28 11/11/18 98.5 18 115/41 96 11:21 (65) 11/11/18 Nasal 2.0 08:30 Cannula 11/07/18 27 22:11 Intake and Output 11/10/18 11/10/18 11/11/18 1515:00 23:00 07:00 IntakeIntake Total 600 ml 350 ml OutputOutput Total 2800 ml 400 ml BalanceBalance -2800 ml 200 ml 350 ml Constitutional: alert, well developed Psych: nl mood/affect Head: atraumatic Eyes: nl lids, nl sclera ENMT: nl external ears & nose Neck: non-tender Respiratory: clear to auscultation Cardiovascular: nl pulses, other (S1S2) Gastrointestinal: soft, non-tender Musculoskeletal: joint tenderness, muscle weakness, range of motion, other Results Result Diagram: 11/11/1862111/11/18621 Results 24hrs Laboratory Tests Test 11/10/18 15:22 11/10/18 17:40 11/10/18 18:21 11/10/18 21:05 Hemoglobin 7.3 L Hematocrit 25.6 L Bedside Glucose 69 L 83 114 Test 11/11/18 06:22 11/11/18 08:39 11/11/18 11:50 White Blood Count 8.8 Red Blood Count 2.73 L Hemoglobin 7.0 L Hematocrit 23.9 L Mean Corpuscular 87.5 Volume Mean Corpuscular 25.6 L Hemoglobin Mean Corpuscular 29.3 L Hemoglobin Concent Red Cell 17.5 H Distribution Width Platelet Count 338 Mean Platelet Volume 9.8 Immature 0.600 H Granulocytes % Neutrophils % 64.4 Lymphocytes % 25.3 Monocytes % 7.1 Eosinophils % 1.8 Basophils % 0.8 Nucleated Red Blood 0.0 Cells % Immature 0.050 H Granulocytes # Neutrophils # 5.6 Lymphocytes # 2.2 Monocytes # 0.6 Eosinophils # 0.2 Basophils # 0.1 Nucleated Red Blood 0.0 Cells # Sodium Level 135 Potassium Level 3.7 Chloride Level 101 Carbon Dioxide Level 25 Anion Gap 9 # Blood Urea Nitrogen 28 #H Creatinine 4.67 #H Est Glomerular 13 L Filtrat Rate mL/min Glucose Level 133 Calcium Level 7.3 L Random Vancomycin 13.8 Level Bedside Glucose 137 140 Medications Medication Current Medications Oxycodone/ Acetaminophen (Percocet (5/ 325)) 1 tab Q3H PRN PO PAIN LEVEL 1-5 Last administered on 11/10/18 12:11; Admin Dose 1 TAB; Start 10/07/18 at 21:00 Ondansetron HCl (Zofran Inj) 4 mg Q6H PRN IV NAUSEA AND/OR VOMITING Last administered on 10/21/18 12:10; Admin Dose 4 MG; Start 10/07/18 at 21:00 Acetaminophen (Tylenol Tab) 650 mg Q3H PRN PO ELEVATED TEMPERATURE Last administered on 11/11/18 08:50; Admin Dose 650 MG; Start 10/07/18 at 21:00 Atorvastatin Calcium (Lipitor) 40 mg HS PO Last administered on 11/10/18 21:07; Admin Dose 40 MG; Start 10/08/18 at 21:00 Insulin Aspart (Novolog Insulin Pen) NOVOLOG *MODERATE* ALGORITHM WITH MEALS BEDTIME SC Last administered on 11/09/18 18:12; Admin Dose 2 UNIT; Start 10/09/18 at 11:30 Glucose (Glutose) 15 gm Q15M PRN PO DECREASED GLUCOSE; Start 10/09/18 at 12:00 Glucose (Glutose) 22.5 gm Q15M PRN PO DECREASED GLUCOSE; Start 10/09/18 at 12:00 Dextrose (D50w Syringe) 25 ml Q15M PRN IV DECREASED GLUCOSE; Start 10/09/18 at 12:00 Dextrose (D50w Syringe) 50 ml Q15M PRN IV DECREASED GLUCOSE; Start 10/09/18 at 12:00 Glucagon (Glucagen) 1 mg Q15M PRN IM DECREASED GLUCOSE; Start 10/09/18 at 12:00 Glucose (Glutose) 15 gm Q15M PRN BUCCAL DECREASED GLUCOSE Last administered on 10/20/18 18:52; Admin Dose 15 GM; Start 10/09/18 at 12:00 Diagnostic Test (Pha) (Accu-Chek) 1 ea AC MEALS AND BEDTIME XX Last administered on 11/11/18 11:04; Admin Dose 1 EA; Start 10/09/18 at 11:00 Aspirin (Aspirin) 81 mg DAILY PO Last administered on 11/11/18 08:42; Admin Dose 81 MG; Start 10/13/18 at 09:00 Albumin Human 100 ml @ 100 mls/hr DURING DIALYSIS PRN IV BLOOD PRESSURE SUPPORT Last administered on 11/10/18 08:57; Admin Dose 100 MLS/HR; Start 10/13/18 at 11:30 Magnesium Hydroxide (Milk Of Mag) 30 ml DAILY PRN PO CONSTIPATION; Start 10/16/18 at 06:30 Heparin Sodium (Porcine) (Heparin (1000 Units/ml)) 500 unit WITH DIALYSIS HE Last administered on 11/10/18 08:21; Admin Dose 500 UNIT; Start 10/20/18 at 10:00 Heparin Sodium (Porcine) (Heparin (1000 Units/ml)) 1,500 unit WITH DIALYSIS HE Last administered on 11/10/18 08:21; Admin Dose 1,500 UNIT; Start 10/20/18 at 10:00 Ondansetron HCl (Zofran Tab) 4 mg Q6H PRN PO NAUSEA AND/OR VOMITING; Start 10/20/18 at 17:30 Epoetin Jero-epbx (Retacrit (Esrd)) 10,000 unit MoWeFr@1700 SC Last administered on 11/10/18 17:49; Admin Dose 10,000 UNIT; Start 10/24/18 at 17:00 Guaifenesin/ Dextromethorphan (Robitussin Dm Liquid Cup) 10 ml Q4H PRN PO cough Last administered on 10/25/18 15:49; Admin Dose 10 ML; Start 10/24/18 at 11:00 Alteplase, Recombinant (Cathflo (Activase)) 4 mg MAY REPEAT X1 PRN CATHETER IF CATHETER REMAINS OCCULUDED Last administered on 11/10/18 11:09; Admin Dose 4 MG; Start 10/29/18 at 14:00 Apixaban (Eliquis) 2.5 mg BID PO Last administered on 11/11/18 08:43; Admin Dose 2.5 MG; Start 10/31/18 at 21:00 Insulin Aspart (Novolog Insulin Pen) 7 unit WITH MEALS SC Last administered on 11/10/18 11:47; Admin Dose 7 UNIT; Start 11/01/18 at 11:50 Insulin Glargine (Lantus) 21 units DAILY@0830 SC Last administered on 11/11/18 08:55; Admin Dose 21 UNITS; Start 11/02/18 at 08:30 Famotidine (Pepcid) 10 mg DAILY PO Last administered on 11/11/18 08:44; Admin Dose 10 MG; Start 11/03/18 at 09:00 Lactobacillus Acidophilus/ Rhamnosus (Culturelle) 1 cap BID PO Last administered on 11/11/18 08:42; Admin Dose 1 CAP; Start 11/02/18 at 21:00 Escitalopram Oxalate (Lexapro) 5 mg DAILY PO Last administered on 11/11/18 08:43; Admin Dose 5 MG; Start 11/03/18 at 09:00 Furosemide (Lasix) 20 mg DAILY PO Last administered on 11/10/18 08:08; Admin Dose 20 MG; Start 11/06/18 at 09:00 Miscellaneous Information 1 ea NOTE XX ; Start 11/07/18 at 18:00 Albuterol/ Ipratropium (Duoneb) 3 ml Q4H RESP THERAPY PRN HHN SHORTNESS OF BREATH; Start 11/07/18 at 22:00 Levalbuterol (Xopenex Neb) 1.25 mg Q4H RESP THERAPY PRN HHN SHORTNESS OF BREATH Last administered on 11/07/18 22:10; Admin Dose 1.25 MG; Start 11/07/18 at 22:00 Ipratropium [place] (Atrovent 0.02% (Neb)) 0.5 mg Q4H RESP THERAPY PRN HHN SHORTNESS OF BREATH Last administered on 11/07/18at 22:10; Admin Dose 0.5 MG; Start 11/07/18 at 22:30 Levofloxacin (Levaquin) 500 mg Q48H PO ; Start 11/11/18 at 13:00 Metronidazole (Flagyl) 500 mg Q8 PO ; Start 11/11/18 at 14:00 CATARINA GONCALVES Nov 11, 2018 12:49
[2018-11-11] MEDS: LEVOFLOXACIN 500 MG TAB PO SCH (13:34)
[2018-11-11] MEDS: metroNIDAZOLE 500 MG TAB PO SCH ×2 (13:34→21:16)
--- NOTE | 2018-11-11 14:49 | CONS ---
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 s/p transmetatarsal amputation 11/07/18 Afib/flutter: new onset, rates controlled. Now on Eliquis CAD s/p CABG: CABG x4 10/07/18, ÁLVAREZ to LAD, SVG to ramus, SVG to OM1 sequenced to OM2. NSTEMI: Trop peak 1.1 and trended down. S/p cath 09/30/18 with diffuse multivessel CAD. CABG as above Upper GI bleed: due to anastomotic ulcer seen on EGD 09/26. No bleeding since. Hgb relatively stable. Anemia: due to above. s/p 5 units PRBCs and 2 units intraop. Now low again ~7 but no active bleeding Kurt: Kaylee 1. Not on BB. No pauses or high grade block. 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 Unable to place right IJ. Now s/p left femoral permacath 10/24 which clotted but started to work again HTN H/o Billroth Depression: now on meds Cholecystitis: resolved -transfusion per primary -continue Eliquis 2.5mg BID as no active bleeding -antibiotics -ASA 81mg -continue to hold metoprolol as pt has bradycardia/hypotension -lipitor 40mg -lasix 20mg PO -HD per nephrology Consultation Date/Type/Reason Admit Date/Time September 24, 2018 at 08:08 Initial Consult Date 09/24/18 Type of Consult Cardiology Date/Time of Note DATE: 11/11/18 TIME: 14:47 24 HR Interval Summary Free Text/Dictation BP low at night, better in am. No complaints. Tried working with PT but cant put weight on his left foot. Hgb stable ~7 Exam/Review of Systems Vital Signs Vitals Vital Signs Date Temp Pulse Resp B/P (MAP) Pulse Ox O2 O2 Flow FiO2 Time Delivery Rate 11/11/18 71 12:28 11/11/18 98.5 18 115/41 96 11:21 (65) 11/11/18 Nasal 2.0 08:30 Cannula 11/07/18 27 22:11 Intake and Output 11/10/18 11/10/18 11/11/18 1515:00 23:00 07:00 IntakeIntake Total 600 ml 350 ml OutputOutput Total 2800 ml 400 ml BalanceBalance -2800 ml 200 ml 350 ml Exam Constitutional: alert, oriented Psych: no complaints, nl mood/affect Head: normocephalic, atraumatic Neck: No jvd Respiratory: diminished breath sounds; No clear to auscultation Cardiovascular: regular rate and rhythm; No edema Gastrointestinal: soft, non-tender; No distended 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: nl mental status, nl speech Labs Result Diagram: 11/11/1862111/11/18 0622 Results 24hrs Laboratory Tests Test 11/10/18 15:22 11/10/18 17:40 11/10/18 18:21 11/10/18 21:05 Hemoglobin 7.3 L Hematocrit 25.6 L Bedside Glucose 69 L 83 114 Test 11/11/18 06:22 11/11/18 08:39 11/11/18 11:50 White Blood Count 8.8 Red Blood Count 2.73 L Hemoglobin 7.0 L Hematocrit 23.9 L Mean Corpuscular 87.5 Volume Mean Corpuscular 25.6 L Hemoglobin Mean Corpuscular 29.3 L Hemoglobin Concent Red Cell 17.5 H Distribution Width Platelet Count 338 Mean Platelet Volume 9.8 Immature 0.600 H Granulocytes % Neutrophils % 64.4 Lymphocytes % 25.3 Monocytes % 7.1 Eosinophils % 1.8 Basophils % 0.8 Nucleated Red Blood 0.0 Cells % Immature 0.050 H Granulocytes # Neutrophils # 5.6 Lymphocytes # 2.2 Monocytes # 0.6 Eosinophils # 0.2 Basophils # 0.1 Nucleated Red Blood 0.0 Cells # Sodium Level 135 Potassium Level 3.7 Chloride Level 101 Carbon Dioxide Level 25 Anion Gap 9 # Blood Urea Nitrogen 28 #H Creatinine 4.67 #H Est Glomerular 13 L Filtrat Rate mL/min Glucose Level 133 Calcium Level 7.3 L Random Vancomycin 13.8 Level Bedside Glucose 137 140 Medications Medications Current Medications Oxycodone/ Acetaminophen (Percocet (5/ 325)) 1 tab Q3H PRN PO PAIN LEVEL 1-5 Last administered on 11/10/18at 12:11; Admin Dose 1 TAB; Start 10/07/18 at 21:00 Ondansetron HCl (Zofran Inj) 4 mg Q6H PRN IV NAUSEA AND/OR VOMITING Last administered on 10/21/18 12:10; Admin Dose 4 MG; Start 10/07/18 at 21:00 Acetaminophen (Tylenol Tab) 650 mg Q3H PRN PO ELEVATED TEMPERATURE Last administered on 11/11/18 08:50; Admin Dose 650 MG; Start 10/07/18 at 21:00 Atorvastatin Calcium (Lipitor) 40 mg HS PO Last administered on 11/10/18 21:07; Admin Dose 40 MG; Start 10/08/18 at 21:00 Insulin Aspart (Novolog Insulin Pen) NOVOLOG *MODERATE* ALGORITHM WITH MEALS BEDTIME SC Last administered on 11/09/18 18:12; Admin Dose 2 UNIT; Start 10/09/18 at 11:30 Glucose (Glutose) 15 gm Q15M PRN PO DECREASED GLUCOSE; Start 10/09/18 at 12:00 Glucose (Glutose) 22.5 gm Q15M PRN PO DECREASED GLUCOSE; Start 10/09/18 at 12:00 Dextrose (D50w Syringe) 25 ml Q15M PRN IV DECREASED GLUCOSE; Start 10/09/18 at 12:00 Dextrose (D50w Syringe) 50 ml Q15M PRN IV DECREASED GLUCOSE; Start 10/09/18 at 12:00 Glucagon (Glucagen) 1 mg Q15M PRN IM DECREASED GLUCOSE; Start 10/09/18 at 12:00 Glucose (Glutose) 15 gm Q15M PRN BUCCAL DECREASED GLUCOSE Last administered on 10/20/18 18:52; Admin Dose 15 GM; Start 10/09/18 at 12:00 Diagnostic Test (Pha) (Accu-Chek) 1 ea AC MEALS AND BEDTIME XX Last administered on 11/11/18 11:04; Admin Dose 1 EA; Start 10/09/18 at 11:00 Aspirin (Aspirin) 81 mg DAILY PO Last administered on 11/11/18 08:42; Admin Dose 81 MG; Start 10/13/18 at 09:00 Albumin Human 100 ml @ 100 mls/hr DURING DIALYSIS PRN IV BLOOD PRESSURE SUPPORT Last administered on 11/10/18 08:57; Admin Dose 100 MLS/HR; Start 10/13/18 at 11:30 Magnesium Hydroxide (Milk Of Mag) 30 ml DAILY PRN PO CONSTIPATION; Start 10/16/18 at 06:30 Heparin Sodium (Porcine) (Heparin (1000 Units/ml)) 500 unit WITH DIALYSIS HE Last administered on 11/10/18 08:21; Admin Dose 500 UNIT; Start 10/20/18 at 10:00 Heparin Sodium (Porcine) (Heparin (1000 Units/ml)) 1,500 unit WITH DIALYSIS HE Last administered on 11/10/18 08:21; Admin Dose 1,500 UNIT; Start 10/20/18 at 10:00 Ondansetron HCl (Zofran Tab) 4 mg Q6H PRN PO NAUSEA AND/OR VOMITING; Start 10/20/18 at 17:30 Epoetin Jero-epbx (Retacrit (Esrd)) 10,000 unit MoWeFr@1700 SC Last administered on 11/10/18 17:49; Admin Dose 10,000 UNIT; Start 10/24/18 at 17:00 Guaifenesin/ Dextromethorphan (Robitussin Dm Liquid Cup) 10 ml Q4H PRN PO cough Last administered on 10/25/18 15:49; Admin Dose 10 ML; Start 10/24/18 at 11:00 Alteplase, Recombinant (Cathflo (Activase)) 4 mg MAY REPEAT X1 PRN CATHETER IF CATHETER REMAINS OCCULUDED Last administered on 11/10/18 11:09; Admin Dose 4 MG; Start 10/29/18 at 14:00 Apixaban (Eliquis) 2.5 mg BID PO Last administered on 11/11/18 08:43; Admin Dose 2.5 MG; Start 10/31/18 at 21:00 Insulin Aspart (Novolog Insulin Pen) 7 unit WITH MEALS SC Last administered on 11/10/18 11:47; Admin Dose 7 UNIT; Start 11/01/18 at 11:50 Insulin Glargine (Lantus) 21 units DAILY@0830 SC Last administered on 11/11/18 08:55; Admin Dose 21 UNITS; Start 11/02/18 at 08:30 Famotidine (Pepcid) 10 mg DAILY PO Last administered on 11/11/18 08:44; Admin Dose 10 MG; Start 11/03/18 at 09:00 Lactobacillus Acidophilus/ Rhamnosus (Culturelle) 1 cap BID PO Last administered on 11/11/18 08:42; Admin Dose 1 CAP; Start 11/02/18 at 21:00 Escitalopram Oxalate (Lexapro) 5 mg DAILY PO Last administered on 11/11/18 08:43; Admin Dose 5 MG; Start 11/03/18 at 09:00 Furosemide (Lasix) 20 mg DAILY PO Last administered on 11/10/18 08:08; Admin Dose 20 MG; Start 11/06/18 at 09:00 Miscellaneous Information 1 ea NOTE XX ; Start 11/07/18 at 18:00 Albuterol/ Ipratropium (Duoneb) 3 ml Q4H RESP THERAPY PRN HHN SHORTNESS OF BREATH; Start 11/07/18 at 22:00 Levalbuterol (Xopenex Neb) 1.25 mg Q4H RESP THERAPY PRN HHN SHORTNESS OF BREATH Last administered on 11/07/18 22:10; Admin Dose 1.25 MG; Start 11/07/18 at 22:00 Ipratropium [place] (Atrovent 0.02% (Neb)) 0.5 mg Q4H RESP THERAPY PRN HHN SHORTNESS OF BREATH Last administered on 11/07/18 22:10; Admin Dose 0.5 MG; Start 11/07/18 at 22:30 Levofloxacin (Levaquin) 500 mg Q48H PO Last administered on 11/11/18 13:34; Admin Dose 500 MG; Start 11/11/18 at 13:00 Metronidazole (Flagyl) 500 mg Q8 PO Last administered on 11/11/18 13:34; Admin Dose 500 MG; Start 11/11/18 at 14:00 LAVON SEE Nov 11, 2018 14:49
--- NOTE | 2018-11-11 17:59 | PN ---
Date/Time of Note Date/Time of Note DATE: 11/11/18 TIME: 17:59 Assessment/Plan Lines/Catheters IV Catheter Type (from Nrsg): Mid Line Pierre in Place (from Nrsg): No Assessment/Plan Chief Complaint/Hosp Course -Bilateral lower extremity atherosclerosis with left lower extremity with left lower extremity gangrene: It seems that the patient's left lower extremity third toe has become dry gangrene and worsening. Unfortunately his first and second toe have also become gangrene with erythema. We are hoping that the patient's lower extremity atherosclerotic disease will not worsen during this period of time. There is concern he may require an amputation should he not improve and develop worsening gangrene. This was discussed in detail with the family given his plethora of medical conditions. -He has developed new cellulitis of the forefoot over the past 24hours associated with pain per 's reporting. Will have our podiatry colleagues evaluate patient as there appears to require an I&D. From vascular standpoint the patient will likely be limited with intervention given his recent episode of GI bleed and CABG. -S/P LLE TMA -Bilateral lower extremity varicose veins and edema: The patient has component of mixed disease (venous insufficiency and arterial sufficiency). At the moment, we recommend elevation of the bilateral lower extremities while at rest. No further intervention will be needed and can be followed as an outpatient in regards to venous insufficiency. -End-stage renal disease: At the moment the patient's left upper extremity fistula is nonfunctional. 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 I've been asked by our multidisciplinary team to re-evaluate. Upon lower extremity venogram there is large collateralization that has developed with the iliac veins secondary to the infrarenal IVC. I have thoroughly spoken with the patient's family and at the bedside regarding further interventions and they understand the full scope of what is involved and limitations at [facility]. Unable to perform multidisciplinary approach for transhepatic catheter intervention and no IR interventionalist available. Further, may be a candidate for azygous catheter placement however unable to perform re-canalization secondary to limitation of our angio suite. As the patient will require advanced intervention for dialysis access will need to be transferred to a tertiary center secondary to limited resources. Our multidisciplinary team has agreed with the plan and involved in the decision. Certified nephrologist present. Subjective 24 Hr Interval Summary No new vascular events overnight Exam/Review of Systems Vital Signs Vitals Vital Signs Date Temp Pulse Resp B/P (MAP) Pulse Ox O2 O2 Flow FiO2 Time Delivery Rate 11/13/18 97.9 79 18 122/50 95 07:23 (74) 11/13/18 Nasal 04:36 Cannula 11/12/18 2.0 20:30 11/12/18 21 04:24 Intake and Output 11/12/18 11/12/18 11/13/18 1515:00 23:00 07:00 IntakeIntake Total 240 ml 240 ml 350 ml OutputOutput Total 1000 ml 0 ml BalanceBalance -760 ml 240 ml 350 ml Exam Free Text/Dictation GENERAL: Awake. PULMONARY: Coarse BS bilaterally, CARDIOVASCULAR: S1, S2 present. Dressing intact ABDOMEN: Soft, nontender, nondistended. Bowel sounds positive. Large truncal obesity. EXTREMITIES: Right lower extremity palpable femoral pulse, nonpalpable pedal pulse. Motor, sensory intact. Cap refill 3 to 4 seconds. Presence of varicose veins and large leg. Left lower extremity palpable femoral pulse, nonpalpable pedal pulse. Motor, sensory intact. Cap refill 3 to 4 seconds. TMA site with dressing intact, Heel gangrene developed. groin catheter intact, cellulitis and tenderness decreased Varicose veins and edema of the left lower extremity with presence of mild li podermatosclerosis. Left upper extremity: Palpable brachial pulse, motor/sensory intact, fistula wit h bruit and thrill not present Results Result Diagram: 11/13/1862411/13/1825 VANIA PEREYRA MD Nov 11, 2018 17:59
--- NOTE | 2018-11-11 18:05 | PN ---
Date/Time of Note Date/Time of Note DATE: 11/11/18 TIME: 17:59 Assessment/Plan VTE Prophylaxis Risk score (from Nsg)>0 risk: 2 Pharmacological prophylaxis: apixaban Lines/Catheters IV Catheter Type (from Nrs): Mid Line Urinary Cath still in place: No Assessment/Plan Hospital Course 67 yo with numerous comorbidities including dyslipidemia, IDDM, ESRD on HD and severe PVD who is also anticoagulated on Eliquis/Plavix,here with worsening malaise. Subsequently underwent CABG for severe CAD. HD has been complicated by issues with difficult access as he has extensive venous clots. Also underwent foot resection for wet gangrene currently with wound vac. Foot gangrene - IV abx. S/p transmetatarsal resection 11/07. Continue abx for now. Wound vac. Management per podiatry -Podiatry recommendation is for repeat lower extremity angiogram Cholecystitis: - Symptoms much better. s/p abx ESRD: - HD per renal via femoral access IVC clot: - Eliquis NSTEMI/Multivessel coronary artery disease - s/p LHC 09/30 - s/p CABG 10/07 - Cautiously resume beta blockers. - Anticoag, antiplatelet per CT surgery - Continue statin. Severe acute symptomatic blood loss anemia -Improved with multiple transfusion. -Continue iron Upper GI bleed -resolved -s/p EGD showed anastomotic ulcer (hx billroth II) -On PPI/Carafate Mobitz type I heart block - Now post CABG will resume beta blockers - Maintain on telemetry DMII -Sugars are stable -Continue current regimen Obesity with BMI 36.3 -Weight reduction advised. Anemia of ESRD -on Epogen with hemodialysis Depression -Started Paxil DVT prophylaxis: Eliquis PUD prophylaxis: Protonix DC planning: Follow-up on vascular surgery recommendations Result Diagram: 11/11/18 0622 11/11/18 0622 Results 24hrs Laboratory Tests Test 11/10/18 18:21 11/10/18 21:05 11/11/18 06:22 11/11/18 08:39 Bedside Glucose 83 114 137 White Blood Count 8.8 Red Blood Count 2.73 L Hemoglobin 7.0 L Hematocrit 23.9 L Mean Corpuscular 87.5 Volume Mean Corpuscular 25.6 L Hemoglobin Mean Corpuscular 29.3 L Hemoglobin Concent Red Cell 17.5 H Distribution Width Platelet Count 338 Mean Platelet Volume 9.8 Immature 0.600 H Granulocytes % Neutrophils % 64.4 Lymphocytes % 25.3 Monocytes % 7.1 Eosinophils % 1.8 Basophils % 0.8 Nucleated Red Blood 0.0 Cells % Immature 0.050 H Granulocytes # Neutrophils # 5.6 Lymphocytes # 2.2 Monocytes # 0.6 Eosinophils # 0.2 Basophils # 0.1 Nucleated Red Blood 0.0 Cells # Sodium Level 135 Potassium Level 3.7 Chloride Level 101 Carbon Dioxide Level 25 Anion Gap 9 # Blood Urea Nitrogen 28 #H Creatinine 4.67 #H Est Glomerular 13 L Filtrat Rate mL/min Glucose Level 133 Calcium Level 7.3 L Random Vancomycin 13.8 Level Test 11/11/18 11:50 11/11/18 17:32 Bedside Glucose 140 147 Subjective 24 Hr Interval Summary Constitutional: no complaints Exam/Review of Systems Exam Vitals Vital Signs Date Temp Pulse Resp B/P (MAP) Pulse Ox O2 O2 Flow FiO2 Time Delivery Rate 11/11/18 82 16:27 11/11/18 97.8 18 115/46 95 15:31 (69) 11/11/18 Nasal 2.0 08:30 Cannula 11/07/18 27 22:11 Intake and Output 11/10/18 11/10/18 11/11/18 1515:00 23:00 07:00 IntakeIntake Total 600 ml 350 ml OutputOutput Total 2800 ml 400 ml BalanceBalance -2800 ml 200 ml 350 ml Constitutional: alert, oriented Respiratory: clear to auscultation Cardiovascular: regular rate and rhythm Gastrointestinal: soft; No distended Musculoskeletal: No nl extremities to inspection Results Results 24hrs Laboratory Tests Test 11/10/18 18:21 11/10/18 21:05 11/11/18 06:22 11/11/18 08:39 Bedside Glucose 83 114 137 White Blood Count 8.8 Red Blood Count 2.73 L Hemoglobin 7.0 L Hematocrit 23.9 L Mean Corpuscular 87.5 Volume Mean Corpuscular 25.6 L Hemoglobin Mean Corpuscular 29.3 L Hemoglobin Concent Red Cell 17.5 H Distribution Width Platelet Count 338 Mean Platelet Volume 9.8 Immature 0.600 H Granulocytes % Neutrophils % 64.4 Lymphocytes % 25.3 Monocytes % 7.1 Eosinophils % 1.8 Basophils % 0.8 Nucleated Red Blood 0.0 Cells % Immature 0.050 H Granulocytes # Neutrophils # 5.6 Lymphocytes # 2.2 Monocytes # 0.6 Eosinophils # 0.2 Basophils # 0.1 Nucleated Red Blood 0.0 Cells # Sodium Level 135 Potassium Level 3.7 Chloride Level 101 Carbon Dioxide Level 25 Anion Gap 9 # Blood Urea Nitrogen 28 #H Creatinine 4.67 #H Est Glomerular 13 L Filtrat Rate mL/min Glucose Level 133 Calcium Level 7.3 L Random Vancomycin 13.8 Level Test 11/11/18 11:50 11/11/18 17:32 Bedside Glucose 140 147 Medications Medication Current Medications Oxycodone/ Acetaminophen (Percocet (5/ 325)) 1 tab Q3H PRN PO PAIN LEVEL 1-5 Last administered on 11/10/18at 12:11; Admin Dose 1 TAB; Start 10/07/18 at 21:00 Ondansetron HCl (Zofran Inj) 4 mg Q6H PRN IV NAUSEA AND/OR VOMITING Last administered on 10/21/18at 12:10; Admin Dose 4 MG; Start 10/07/18 at 21:00 Acetaminophen (Tylenol Tab) 650 mg Q3H PRN PO ELEVATED TEMPERATURE Last administered on 11/11/18at 08:50; Admin Dose 650 MG; Start 10/07/18 at 21:00 Atorvastatin Calcium (Lipitor) 40 mg HS PO Last administered on 11/10/18at 21:07; Admin Dose 40 MG; Start 10/08/18 at 21:00 Insulin Aspart (Novolog Insulin Pen) NOVOLOG *MODERATE* ALGORITHM WITH MEALS BEDTIME SC Last administered on 11/09/18at 18:12; Admin Dose 2 UNIT; Start 10/09/18 at 11:30 Glucose (Glutose) 15 gm Q15M PRN PO DECREASED GLUCOSE; Start 10/09/18 at 12:00 Glucose (Glutose) 22.5 gm Q15M PRN PO DECREASED GLUCOSE; Start 10/09/18 at 12:00 Dextrose (D50w Syringe) 25 ml Q15M PRN IV DECREASED GLUCOSE; Start 10/09/18 at 12:00 Dextrose (D50w Syringe) 50 ml Q15M PRN IV DECREASED GLUCOSE; Start 10/09/18 at 12:00 Glucagon (Glucagen) 1 mg Q15M PRN IM DECREASED GLUCOSE; Start 10/09/18 at 12:00 Glucose (Glutose) 15 gm Q15M PRN BUCCAL DECREASED GLUCOSE Last administered on 10/20/18 18:52; Admin Dose 15 GM; Start 10/09/18 at 12:00 Diagnostic Test (Pha) (Accu-Chek) 1 ea AC MEALS AND BEDTIME XX Last administered on 11/11/18 17:35; Admin Dose 1 EA; Start 10/09/18 at 11:00 Aspirin (Aspirin) 81 mg DAILY PO Last administered on 11/11/18 08:42; Admin Dose 81 MG; Start 10/13/18 at 09:00 Albumin Human 100 ml @ 100 mls/hr DURING DIALYSIS PRN IV BLOOD PRESSURE SUPPORT Last administered on 11/10/18 08:57; Admin Dose 100 MLS/HR; Start 10/13/18 at 11:30 Magnesium Hydroxide (Milk Of Mag) 30 ml DAILY PRN PO CONSTIPATION; Start 10/16/18 at 06:30 Heparin Sodium (Porcine) (Heparin (1000 Units/ml)) 500 unit WITH DIALYSIS HE Last administered on 11/10/18 08:21; Admin Dose 500 UNIT; Start 10/20/18 at 10:00 Heparin Sodium (Porcine) (Heparin (1000 Units/ml)) 1,500 unit WITH DIALYSIS HE Last administered on 11/10/18 08:21; Admin Dose 1,500 UNIT; Start 10/20/18 at 10:00 Ondansetron HCl (Zofran Tab) 4 mg Q6H PRN PO NAUSEA AND/OR VOMITING; Start 10/20/18 at 17:30 Epoetin Jero-epbx (Retacrit (Esrd)) 10,000 unit MoWeFr@1700 SC Last administered on 11/10/18 17:49; Admin Dose 10,000 UNIT; Start 10/24/18 at 17:00 Guaifenesin/ Dextromethorphan (Robitussin Dm Liquid Cup) 10 ml Q4H PRN PO cough Last administered on 10/25/18 15:49; Admin Dose 10 ML; Start 10/24/18 at 11:00 Alteplase, Recombinant (Cathflo (Activase)) 4 mg MAY REPEAT X1 PRN CATHETER IF CATHETER REMAINS OCCULUDED Last administered on 11/10/18 11:09; Admin Dose 4 MG; Start 10/29/18 at 14:00 Apixaban (Eliquis) 2.5 mg BID PO Last administered on 11/11/18 08:43; Admin Dose 2.5 MG; Start 10/31/18 at 21:00 Insulin Aspart (Novolog Insulin Pen) 7 unit WITH MEALS SC Last administered on 11/10/18 11:47; Admin Dose 7 UNIT; Start 11/01/18 at 11:50 Insulin Glargine (Lantus) 21 units DAILY@0830 SC Last administered on 11/11/18 08:55; Admin Dose 21 UNITS; Start 11/02/18 at 08:30 Famotidine (Pepcid) 10 mg DAILY PO Last administered on 11/11/18 08:44; Admin Dose 10 MG; Start 11/03/18 at 09:00 Lactobacillus Acidophilus/ Rhamnosus (Culturelle) 1 cap BID PO Last administered on 11/11/18 08:42; Admin Dose 1 CAP; Start 11/02/18 at 21:00 Escitalopram Oxalate (Lexapro) 5 mg DAILY PO Last administered on 11/11/18 08:43; Admin Dose 5 MG; Start 11/03/18 at 09:00 Furosemide (Lasix) 20 mg DAILY PO Last administered on 11/10/18 08:08; Admin Dose 20 MG; Start 11/06/18 at 09:00 Miscellaneous Information 1 ea NOTE XX ; Start 11/07/18 at 18:00 Albuterol/ Ipratropium (Duoneb) 3 ml Q4H RESP THERAPY PRN HHN SHORTNESS OF BREATH; Start 11/07/18 at 22:00 Levalbuterol (Xopenex Neb) 1.25 mg Q4H RESP THERAPY PRN HHN SHORTNESS OF BREATH Last administered on 11/07/18 22:10; Admin Dose 1.25 MG; Start 11/07/18 at 22:00 Ipratropium [place] (Atrovent 0.02% (Neb)) 0.5 mg Q4H RESP THERAPY PRN HHN SHORTNESS OF BREATH Last administered on 11/07/18 22:10; Admin Dose 0.5 MG; Start 11/07/18 at 22:30 Levofloxacin (Levaquin) 500 mg Q48H PO Last administered on 11/11/18 13:34; Admin Dose 500 MG; Start 11/11/18 at 13:00 Metronidazole (Flagyl) 500 mg Q8 PO Last administered on 11/11/18 13:34; Admin Dose 500 MG; Start 11/11/18 at 14:00 LORI VINES Nov 11, 2018 18:04
[2018-11-11] MEDS: ATORVASTATIN 40 MG TAB PO SCH (21:16)
[2018-11-12] VITALS (18 sets, daily range): BP systolic 98–162; BP diastolic 58–93; PULSE 50–96; RESP 18–22
[2018-11-12] MEDS: metroNIDAZOLE 500 MG TAB PO SCH ×4 (05:00→22:41)
[2018-11-12] MEDS: INSULIN ASPART [NOVOLOG] 3 ML PEN SC SCH ×7 (07:55→20:19)
[2018-11-12] MEDS: ACCU-CHEK XX SCH ×4 (08:11→20:32)
[2018-11-12] MEDS: FAMOTIDINE 20 MG TAB PO SCH (08:14)
[2018-11-12] MEDS: ESCITALOPRAM 10 MG TAB PO SCH (08:14)
[2018-11-12] MEDS: APIXABAN 5 MG TABLET PO SCH ×2 (08:15→20:12)
[2018-11-12] MEDS: LACTOBACILLUS RHAMNOSUS CAP PO SCH ×2 (08:15→20:12)
[2018-11-12] MEDS: ASPIRIN 81 MG TAB PO SCH (08:15)
[2018-11-12] MEDS: FUROSEMIDE 40 MG TAB PO SCH (08:15)
[2018-11-12] MEDS: BALSAM PERU/CASTOR OIL 60 GM TUBE TOP SCH (08:21)
[2018-11-12] MEDS: (Nursing Note) XX SCH ×4 (09:30→20:32)
[2018-11-12] MEDS: INSULIN GLARGINE [LANTus] (100 UNITS/ML) SYG SC SCH (09:44)
--- NOTE | 2018-11-12 10:20 | CONS ---
Assessment/Plan Assessment/Plan Hospital Course (Demo Recall) Back pain with HD: upper back pain, unclear etiology. EKG nonischemic. CXR not very remarkable. HD access is from the groin. 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 s/p transmetatarsal amputation 11/07/18 Afib/flutter: new onset, rates controlled. Now on Eliquis CAD s/p CABG: CABG x4 10/07/18, ÁLVAREZ to LAD, SVG to ramus, SVG to OM1 sequenced to OM2. NSTEMI: Trop peak 1.1 and trended down. S/p cath 09/30/18 with diffuse multivessel CAD. CABG as above Upper GI bleed: due to anastomotic ulcer seen on EGD 09/26. No bleeding since. Hgb relatively stable. Anemia: due to above. s/p 5 units PRBCs and 2 units intraop. Now low again ~7 but no active bleeding Kurt: Kaylee 1. Not on BB. No pauses or high grade block. 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 Unable to place right IJ. Now s/p left femoral permacath 10/24 which clotted but started to work again HTN H/o [place] Depression: now on meds Cholecystitis: resolved -check stat labs to see if pt could benefit from transfusion -if recurrent back pain could consider chest CTA -continue Eliquis 2.5mg BID as no active bleeding -antibiotics -ASA 81mg -continue to hold metoprolol as pt has bradycardia/hypotension -lipitor 40mg -lasix 20mg PO -HD per nephrology Consultation Date/Type/Reason Admit Date/Time September 24, 2018 at 08:08 Initial Consult Date 09/24/18 Type of Consult Cardiology Date/Time of Note DATE: 11/12/18 TIME: 10:07 24 HR Interval Summary Free Text/Dictation No events overnight. Was having upper back/scapula pain with HD this am while I was in the room. Also mild SOB. O2 sat also 88% on RA. HD stopped and symptoms improved, O2 sat normalized. No chest pain which is what his angina was prior to the CABG when he had the NSTEMI. EKG shows afib with PVCs or aberrant conduction and nonspecific IVCB. CXR prelim off the machine shows slight pulm edema. No Hgb this am so possibly low again Symptoms now resolved Exam/Review of Systems Vital Signs Vitals Vital Signs Date Temp Pulse Resp B/P (MAP) Pulse Ox O2 O2 Flow FiO2 Time Delivery Rate 11/12/18 97.4 82 20 121/67 95 Room Air 07:44 (85) 11/12/18 21 04:24 11/11/18 2.0 20:00 Intake and Output 11/11/18 11/11/18 11/12/18 1515:00 23:00 07:00 IntakeIntake Total 800 ml 150 ml OutputOutput Total 0 ml BalanceBalance 800 ml 150 ml Exam Constitutional: alert, oriented Head: normocephalic, atraumatic Neck: No jvd Respiratory: diminished breath sounds; No clear to auscultation Cardiovascular: systolic murmur (2/6 GREGORY); No regular rate and rhythm, No edema Gastrointestinal: soft, non-tender; No distended 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: nl mental status, nl speech Labs Result Diagram: 11/11/1862111/11/18 06 Results 24hrs Laboratory Tests Test 11/11/18 11:50 11/11/18 17:32 11/11/18 21:20 11/12/18 02:21 Bedside Glucose 140 147 204 190 Test 11/12/18 08:00 Bedside Glucose 130 Medications Medications Current Medications Oxycodone/ Acetaminophen (Percocet (5/ 325)) 1 tab Q3H PRN PO PAIN LEVEL 1-5 Last administered on 11/10/18 12:11; Admin Dose 1 TAB; Start 10/07/18 at 21:00 Ondansetron HCl (Zofran Inj) 4 mg Q6H PRN IV NAUSEA AND/OR VOMITING Last administered on 10/21/18 12:10; Admin Dose 4 MG; Start 10/07/18 at 21:00 Acetaminophen (Tylenol Tab) 650 mg Q3H PRN PO ELEVATED TEMPERATURE Last administered on 11/11/18at 21:34; Admin Dose 650 MG; Start 10/07/18 at 21:00 Atorvastatin Calcium (Lipitor) 40 mg HS PO Last administered on 11/11/18 21:16; Admin Dose 40 MG; Start 10/08/18 at 21:00 Insulin Aspart (Novolog Insulin Pen) NOVOLOG *MODERATE* ALGORITHM WITH MEALS BEDTIME SC Last administered on 11/11/18 21:28; Admin Dose 1 UNIT; Start 10/09/18 at 11:30 Glucose (Glutose) 15 gm Q15M PRN PO DECREASED GLUCOSE; Start 10/09/18 at 12:00 Glucose (Glutose) 22.5 gm Q15M PRN PO DECREASED GLUCOSE; Start 10/09/18 at 12:00 Dextrose (D50w Syringe) 25 ml Q15M PRN IV DECREASED GLUCOSE; Start 10/09/18 at 12:00 Dextrose (D50w Syringe) 50 ml Q15M PRN IV DECREASED GLUCOSE; Start 10/09/18 at 12:00 Glucagon (Glucagen) 1 mg Q15M PRN IM DECREASED GLUCOSE; Start 10/09/18 at 12:00 Glucose (Glutose) 15 gm Q15M PRN BUCCAL DECREASED GLUCOSE Last administered on 10/20/18at 18:52; Admin Dose 15 GM; Start 10/09/18 at 12:00 Diagnostic Test (Pha) (Accu-Chek) 1 ea AC MEALS AND BEDTIME XX Last administered on 11/12/18 08:11; Admin Dose 1 EA; Start 10/09/18 at 11:00 Aspirin (Aspirin) 81 mg DAILY PO Last administered on 11/12/18 08:15; Admin Dose 81 MG; Start 10/13/18 at 09:00 Albumin Human 100 ml @ 100 mls/hr DURING DIALYSIS PRN IV BLOOD PRESSURE SUPPORT Last administered on 11/10/18 08:57; Admin Dose 100 MLS/HR; Start 10/13/18 at 11:30 Magnesium Hydroxide (Milk Of Mag) 30 ml DAILY PRN PO CONSTIPATION; Start 10/16/18 at 06:30 Heparin Sodium (Porcine) (Heparin (1000 Units/ml)) 500 unit WITH DIALYSIS HE Last administered on 11/10/18 08:21; Admin Dose 500 UNIT; Start 10/20/18 at 10:00 Heparin Sodium (Porcine) (Heparin (1000 Units/ml)) 1,500 unit WITH DIALYSIS HE Last administered on 6/17/19at 08:21; Admin Dose 1,500 UNIT; Start 10/20/18 at 10:00 Ondansetron HCl (Zofran Tab) 4 mg Q6H PRN PO NAUSEA AND/OR VOMITING; Start 10/20/18 at 17:30 Epoetin Jero-epbx (Retacrit (Esrd)) 10,000 unit MoWeFr@1700 SC Last administered on 11/10/18at 17:49; Admin Dose 10,000 UNIT; Start 10/24/18 at 17:00 Guaifenesin/ Dextromethorphan (Robitussin Dm Liquid Cup) 10 ml Q4H PRN PO cough Last administered on 10/25/18 15:49; Admin Dose 10 ML; Start 10/24/18 at 11:00 Alteplase, Recombinant (Cathflo (Activase)) 4 mg MAY REPEAT X1 PRN CATHETER IF CATHETER REMAINS OCCULUDED Last administered on 11/10/18at 11:09; Admin Dose 4 MG; Start 10/29/18 at 14:00 Apixaban (Eliquis) 2.5 mg BID PO Last administered on 11/12/18 08:15; Admin Dose 2.5 MG; Start 10/31/18 at 21:00 Insulin Aspart (Novolog Insulin Pen) 7 unit WITH MEALS SC Last administered on 11/10/18 11:47; Admin Dose 7 UNIT; Start 11/01/18 at 11:50 Insulin Glargine (Lantus) 21 units DAILY@0830 SC Last administered on 11/12/18at 09:44; Admin Dose 21 UNITS; Start 11/02/18 at 08:30 Famotidine (Pepcid) 10 mg DAILY PO Last administered on 11/12/18 08:14; Admin Dose 10 MG; Start 11/03/18 at 09:00 Lactobacillus Acidophilus/ Rhamnosus (Culturelle) 1 cap BID PO Last administered on 11/12/18 08:15; Admin Dose 1 CAP; Start 11/02/18 at 21:00 Escitalopram Oxalate (Lexapro) 5 mg DAILY PO Last administered on 11/12/18 08:14; Admin Dose 5 MG; Start 11/03/18 at 09:00 Furosemide (Lasix) 20 mg DAILY PO Last administered on 11/12/18 08:15; Admin Dose 20 MG; Start 11/06/18 at 09:00 Miscellaneous Information 1 ea NOTE XX ; Start 11/07/18 at 18:00 Albuterol/ Ipratropium (Duoneb) 3 ml Q4H RESP THERAPY PRN HHN SHORTNESS OF BREATH; Start 11/07/18 at 22:00 Levalbuterol (Xopenex Neb) 1.25 mg Q4H RESP THERAPY PRN HHN SHORTNESS OF BREATH Last administered on 11/07/18at 22:10; Admin Dose 1.25 MG; Start 11/07/18 at 22:00 Ipratropium [place] (Atrovent 0.02% (Neb)) 0.5 mg Q4H RESP THERAPY PRN HHN SHORTNESS OF BREATH Last administered on 11/07/18at 22:10; Admin Dose 0.5 MG; Start 11/07/18 at 22:30 Levofloxacin (Levaquin) 500 mg Q48H PO Last administered on 11/11/18at 13:34; Admin Dose 500 MG; Start 11/11/18 at 13:00 Metronidazole (Flagyl) 500 mg Q8 PO Last administered on 11/12/18at 05:00; Admin Dose 500 MG; Start 11/11/18 at 14:00 Miscellaneous Information 1 ea BID XX ; Start 11/12/18 at 10:00 LAVON SEE Nov 12, 2018 10:17
[2018-11-12] MEDS: ALTEPLASE (CATHFLO) 2 MG INJ CATHETER PRN (10:27)
[2018-11-12] MEDS: ACETAMINOPHEN 325 MG TAB PO PRN (12:27)
[2018-11-12] MEDS: OXYCODONE/ACETAMINOPHEN (5/325) TAB PO PRN (13:54)
--- NOTE | 2018-11-12 15:01 | CONS ---
Assessment/Plan Assessment/Plan Assessment/Plan (Daily) Hypokalemia- reSOLVED 1. acute Hyperkalemia due to GI bleeding- resolved 2.Acute fluid overload- now resolved 3. acute GI bleeding causing acute blood loss anemia- S/p Status post EGD/colonoscopy 09/27/19 -Anastomosis ulcer -Normal colonoscopy 4. Severe Anemia with Hb 5.8 on admission s/p 5 U PRBC transfusion for GI bleeding during this admission - pt also has anemia of ESRD 5. H/O HTN 6. H/O peripherla vascular disease 7. ESRD on HD -follow up at [facility] [place] for scheduled HD on MWF 8. 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 S/p transmetatarsal resection 11/07. Continue abx for now. Wound vac. 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 Unable to place right IJ by IR due to central stenosis. Now s/p left femoral permacath 10/24 but still intermittently getting clotted- Discussed with Dr. Velasco - Recommended for higher level of care for diffficult HD access, will need IR or vascular surgery at [facility] to address HD access establishment due to IVC thrombosis and Central stenosis s/p HD on Saturday 2 L removed - Plan for HD today, , continue Eliquis 2.5 mg PO BID we will keep pt on MWF schedule ( his original schedule)- last 4 sessions HD catheter has worked change lasix to 20mg po daily with holding parameters due to low BP Epogen 40461 units SQ MWF- Hb 8.8 on 11/03/18- no labs since then will follow up Patient seen in collaboration with Dr Tobar Consultation Date/Type/Reason Admit Date/Time September 24, 2018 at 08:08 Initial Consult Date 09/24/18 Type of Consult NEPHROLOGY Date/Time of Note DATE: 11/12/18 TIME: 14:56 24 HR Interval Summary Free Text/Dictation During HD got respiratory distress;HD was stopped incompletely CxR ordered- sitting up in bes- feels better HD ordered for tomorrow and on Sat at bed side- leo Qs answered Detailed Summary Eyes: no complaints ENT: no complaints Respiratory: no complaints Cardiovascular: no complaints Gastrointestinal: no complaints Genitourinary: no complaints Musculoskeletal: back pain Skin: other (left foor surgery) Neurologic: no complaints Endocrine: no complaints Lymphatic: no complaints Exam/Review of Systems Exam Vitals Vital Signs Date Temp Pulse Resp B/P (MAP) Pulse Ox O2 O2 Flow FiO2 Time Delivery Rate 11/12/18 97.4 68 20 128/63 93 Room Air 11:46 (84) 11/12/18 2.0 08:10 11/12/18 21 04:24 Intake and Output 11/11/18 11/11/18 11/12/18 1515:00 23:00 07:00 IntakeIntake Total 800 ml 150 ml OutputOutput Total 0 ml BalanceBalance 800 ml 150 ml Constitutional: alert, well developed Psych: nl mood/affect Head: atraumatic ENMT: nl external ears & nose Neck: non-tender Respiratory: clear to auscultation Cardiovascular: nl pulses, other (s1s2) Gastrointestinal: soft, non-tender Musculoskeletal: joint tenderness, range of motion Extremities: edema 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: nl speech Skin: other Lymph: nontender Results Result Diagram: 11/12/18 1019 11/12/18 1019 Results 24hrs Laboratory Tests Test 11/11/18 17:32 11/11/18 21:20 11/12/18 02:21 11/12/18 08:00 Bedside Glucose 147 204 190 130 Test 11/12/18 10:19 11/12/18 12:29 White Blood Count 14.6 #H Red Blood Count 3.15 L Hemoglobin 8.0 L Hematocrit 27.6 L Mean Corpuscular 87.6 Volume Mean Corpuscular 25.4 L Hemoglobin Mean Corpuscular 29.0 L Hemoglobin Concent Red Cell 17.3 H Distribution Width Platelet Count 358 Mean Platelet Volume 9.6 Immature 0.900 H Granulocytes % Neutrophils % 64.1 Lymphocytes % 23.1 Monocytes % 8.8 Eosinophils % 2.3 Basophils % 0.8 Nucleated Red Blood 0.0 Cells % Immature 0.130 H Granulocytes # Neutrophils # 9.3 H Lymphocytes # 3.4 H Monocytes # 1.3 H Eosinophils # 0.3 Basophils # 0.1 Nucleated Red Blood 0.0 Cells # Sodium Level 135 Potassium Level 3.7 Chloride Level 100 Carbon Dioxide Level 22 Anion Gap 13 Blood Urea Nitrogen 38 H Creatinine 5.89 H Est Glomerular 10 L Filtrat Rate mL/min Glucose Level 154 Calcium Level 7.4 L Total Bilirubin 0.3 Direct Bilirubin 0.00 Indirect Bilirubin 0.3 Aspartate Amino 21 Transf (AST/SGOT) Alanine 15 Aminotransferase (AL T/SGPT) Alkaline Phosphatase 115 Total Protein 6.8 Albumin 3.1 L Globulin 3.70 H Albumin/Globulin 0.83 Ratio Bedside Glucose 198 Medications Medication Current Medications Oxycodone/ Acetaminophen (Percocet (5/ 325)) 1 tab Q3H PRN PO PAIN LEVEL 1-5 Last administered on 11/12/18 13:54; Admin Dose 1 TAB; Start 10/07/18 at 21:00 Ondansetron HCl (Zofran Inj) 4 mg Q6H PRN IV NAUSEA AND/OR VOMITING Last administered on 10/21/18 12:10; Admin Dose 4 MG; Start 10/07/18 at 21:00 Acetaminophen (Tylenol Tab) 650 mg Q3H PRN PO ELEVATED TEMPERATURE Last administered on 11/12/18 12:27; Admin Dose 650 MG; Start 10/07/18 at 21:00 Atorvastatin Calcium (Lipitor) 40 mg HS PO Last administered on 11/11/18 21:16; Admin Dose 40 MG; Start 10/08/18 at 21:00 Insulin Aspart (Novolog Insulin Pen) NOVOLOG *MODERATE* ALGORITHM WITH MEALS BEDTIME SC Last administered on 11/12/18 12:32; Admin Dose 4 UNIT; Start 10/09/18 at 11:30 Glucose (Glutose) 15 gm Q15M PRN PO DECREASED GLUCOSE; Start 10/09/18 at 12:00 Glucose (Glutose) 22.5 gm Q15M PRN PO DECREASED GLUCOSE; Start 10/09/18 at 12:00 Dextrose (D50w Syringe) 25 ml Q15M PRN IV DECREASED GLUCOSE; Start 10/09/18 at 12:00 Dextrose (D50w Syringe) 50 ml Q15M PRN IV DECREASED GLUCOSE; Start 10/09/18 at 12:00 Glucagon (Glucagen) 1 mg Q15M PRN IM DECREASED GLUCOSE; Start 10/09/18 at 12:00 Glucose (Glutose) 15 gm Q15M PRN BUCCAL DECREASED GLUCOSE Last administered on 10/20/18 18:52; Admin Dose 15 GM; Start 10/09/18 at 12:00 Diagnostic Test (Pha) (Accu-Chek) 1 ea AC MEALS AND BEDTIME XX Last administered on 11/12/18 11:20; Admin Dose 1 EA; Start 10/09/18 at 11:00 Aspirin (Aspirin) 81 mg DAILY PO Last administered on 11/12/18 08:15; Admin Dose 81 MG; Start 10/13/18 at 09:00 Albumin Human 100 ml @ 100 mls/hr DURING DIALYSIS PRN IV BLOOD PRESSURE SUPPORT Last administered on 11/10/18 08:57; Admin Dose 100 MLS/HR; Start 10/13/18 at 11:30 Magnesium Hydroxide (Milk Of Mag) 30 ml DAILY PRN PO CONSTIPATION; Start 10/16/18 at 06:30 Heparin Sodium (Porcine) (Heparin (1000 Units/ml)) 500 unit WITH DIALYSIS HE Last administered on 11/10/18 08:21; Admin Dose 500 UNIT; Start 10/20/18 at 10:00 Heparin Sodium (Porcine) (Heparin (1000 Units/ml)) 1,500 unit WITH DIALYSIS HE Last administered on 11/10/18 08:21; Admin Dose 1,500 UNIT; Start 10/20/18 at 10:00 Ondansetron HCl (Zofran Tab) 4 mg Q6H PRN PO NAUSEA AND/OR VOMITING; Start 10/20/18 at 17:30 Epoetin Jero-epbx (Retacrit (Esrd)) 10,000 unit MoWeFr@1700 SC Last administered on 11/10/18 17:49; Admin Dose 10,000 UNIT; Start 10/24/18 at 17:00 Guaifenesin/ Dextromethorphan (Robitussin Dm Liquid Cup) 10 ml Q4H PRN PO cough Last administered on 10/25/18 15:49; Admin Dose 10 ML; Start 10/24/18 at 11:00 Alteplase, Recombinant (Cathflo (Activase)) 4 mg MAY REPEAT X1 PRN CATHETER IF CATHETER REMAINS OCCULUDED Last administered on 11/12/18 10:27; Admin Dose 3.2 MG; Start 10/29/18 at 14:00 Apixaban (Eliquis) 2.5 mg BID PO Last administered on 11/12/18 08:15; Admin Dose 2.5 MG; Start 10/31/18 at 21:00 Insulin Aspart (Novolog Insulin Pen) 7 unit WITH MEALS SC Last administered on 11/12/18 12:37; Admin Dose 7 UNIT; Start 11/01/18 at 11:50 Insulin Glargine (Lantus) 21 units DAILY@0830 SC Last administered on 11/12/18 09:44; Admin Dose 21 UNITS; Start 11/02/18 at 08:30 Famotidine (Pepcid) 10 mg DAILY PO Last administered on 11/12/18 08:14; Admin Dose 10 MG; Start 11/03/18 at 09:00 Lactobacillus Acidophilus/ Rhamnosus (Culturelle) 1 cap BID PO Last administered on 11/12/18 08:15; Admin Dose 1 CAP; Start 11/02/18 at 21:00 Escitalopram Oxalate (Lexapro) 5 mg DAILY PO Last administered on 11/12/18 08 :14; Admin Dose 5 MG; Start 11/03/18 at 09:00 Furosemide (Lasix) 20 mg DAILY PO Last administered on 11/12/18 08:15; Admin Dose 20 MG; Start 11/06/18 at 09:00 Miscellaneous Information 1 ea NOTE XX ; Start 11/07/18 at 18:00 Albuterol/ Ipratropium (Duoneb) 3 ml Q4H RESP THERAPY PRN HHN SHORTNESS OF BREATH; Start 11/07/18 at 22:00 Levalbuterol (Xopenex Neb) 1.25 mg Q4H RESP THERAPY PRN HHN SHORTNESS OF BREATH Last administered on 11/07/18at 22:10; Admin Dose 1.25 MG; Start 11/07/18 at 22:00 Ipratropium [place] (Atrovent 0.02% (Neb)) 0.5 mg Q4H RESP THERAPY PRN HHN SHORTNESS OF BREATH Last administered on 11/07/18 22:10; Admin Dose 0.5 MG; Start 11/07/18 at 22:30 Levofloxacin (Levaquin) 500 mg Q48H PO Last administered on 11/11/18 13:34; Admin Dose 500 MG; Start 11/11/18 at 13:00 Metronidazole (Flagyl) 500 mg Q8 PO Last administered on 11/12/18at 13:54; Admin Dose 500 MG; Start 11/11/18 at 14:00 Miscellaneous Information 1 ea BID XX ; Start 11/12/18 at 10:00 Miscellaneous Information 1 ea BID XX ; Start 11/12/18 at 12:00 CATARINA GONCALVES Nov 12, 2018 15:01
[2018-11-12] MEDS ORDERED: FUROSEMIDE 20 MG INJ IV STA (15:09)
--- NOTE | 2018-11-12 15:47 | PN ---
Date/Time of Note Date/Time of Note DATE: 11/12/18 TIME: 15:42 Assessment/Plan VTE Prophylaxis Risk score (from Nsg)>0 risk: 3 Pharmacological prophylaxis: apixaban Lines/Catheters IV Catheter Type (from Nrs): Mid Line Urinary Cath still in place: No Assessment/Plan Hospital Course 67 yo with numerous comorbidities including dyslipidemia, IDDM, ESRD on HD and severe PVD who is also anticoagulated on Eliquis/Plavix,here with worsening malaise. Subsequently underwent CABG for severe CAD. HD has been complicated by issues with difficult access as he has extensive venous clots. Also underwent foot resection for wet gangrene currently with wound vac. Foot gangrene - IV abx. S/p transmetatarsal resection 11/07. Continue abx for now. Wound vac. Management per podiatry -Podiatry recommendation was for evaluation of vascular, vascular consultation appreciated, unable to do intervention at this time Cholecystitis: - Symptoms much better. s/p abx ESRD: - HD per renal via femoral access IVC clot: - Eliquis NSTEMI/Multivessel coronary artery disease - s/p LHC 09/30 - s/p CABG 10/07 - Cautiously resume beta blockers. - Anticoag, antiplatelet per CT surgery - Continue statin. Severe acute symptomatic blood loss anemia -Improved with multiple transfusion. -Continue iron Upper GI bleed -resolved -s/p EGD showed anastomotic ulcer (hx billroth II) -On PPI/Carafate Mobitz type I heart block - Now post CABG will resume beta blockers - Maintain on telemetry DMII -Sugars are stable -Continue current regimen Obesity with BMI 36.3 -Weight reduction advised. Anemia of ESRD -on Epogen with hemodialysis -Hemoglobin stable Depression -Started Paxil DVT prophylaxis: Eliquis PUD prophylaxis: Protonix DC planning: DC tomorrow if cleared by consultants and hemoglobin stable Result Diagram: 11/12/18 1019 11/12/18 1019 Results 24hrs Laboratory Tests Test 11/11/18 17:32 11/11/18 21:20 11/12/18 02:21 11/12/18 08:00 Bedside Glucose 147 204 190 130 Test 11/12/18 10:19 11/12/18 12:29 White Blood Count 14.6 #H Red Blood Count 3.15 L Hemoglobin 8.0 L Hematocrit 27.6 L Mean Corpuscular 87.6 Volume Mean Corpuscular 25.4 L Hemoglobin Mean Corpuscular 29.0 L Hemoglobin Concent Red Cell 17.3 H Distribution Width Platelet Count 358 Mean Platelet Volume 9.6 Immature 0.900 H Granulocytes % Neutrophils % 64.1 Lymphocytes % 23.1 Monocytes % 8.8 Eosinophils % 2.3 Basophils % 0.8 Nucleated Red Blood 0.0 Cells % Immature 0.130 H Granulocytes # Neutrophils # 9.3 H Lymphocytes # 3.4 H Monocytes # 1.3 H Eosinophils # 0.3 Basophils # 0.1 Nucleated Red Blood 0.0 Cells # Sodium Level 135 Potassium Level 3.7 Chloride Level 100 Carbon Dioxide Level 22 Anion Gap 13 Blood Urea Nitrogen 38 H Creatinine 5.89 H Est Glomerular 10 L Filtrat Rate mL/min Glucose Level 154 Calcium Level 7.4 L Total Bilirubin 0.3 Direct Bilirubin 0.00 Indirect Bilirubin 0.3 Aspartate Amino 21 Transf (AST/SGOT) Alanine 15 Aminotransferase (AL T/SGPT) Alkaline Phosphatase 115 Total Protein 6.8 Albumin 3.1 L Globulin 3.70 H Albumin/Globulin 0.83 Ratio Bedside Glucose 198 Subjective 24 Hr Interval Summary Constitutional: no complaints Exam/Review of Systems Exam Vitals Vital Signs Date Temp Pulse Resp B/P (MAP) Pulse Ox O2 O2 Flow FiO2 Time Delivery Rate 11/12/18 97.4 68 20 128/63 93 Room Air 11:46 (84) 11/12/18 2.0 08:10 11/12/18 21 04:24 Intake and Output 11/11/18 11/11/18 11/12/18 1515:00 23:00 07:00 IntakeIntake Total 800 ml 150 ml OutputOutput Total 0 ml BalanceBalance 800 ml 150 ml Constitutional: alert, oriented Respiratory: clear to auscultation Cardiovascular: regular rate and rhythm Gastrointestinal: soft; No distended Musculoskeletal: No nl extremities to inspection Results Results 24hrs Laboratory Tests Test 11/11/18 17:32 11/11/18 21:20 11/12/18 02:21 11/12/18 08:00 Bedside Glucose 147 204 190 130 Test 11/12/18 10:19 11/12/18 12:29 White Blood Count 14.6 #H Red Blood Count 3.15 L Hemoglobin 8.0 L Hematocrit 27.6 L Mean Corpuscular 87.6 Volume Mean Corpuscular 25.4 L Hemoglobin Mean Corpuscular 29.0 L Hemoglobin Concent Red Cell 17.3 H Distribution Width Platelet Count 358 Mean Platelet Volume 9.6 Immature 0.900 H Granulocytes % Neutrophils % 64.1 Lymphocytes % 23.1 Monocytes % 8.8 Eosinophils % 2.3 Basophils % 0.8 Nucleated Red Blood 0.0 Cells % Immature 0.130 H Granulocytes # Neutrophils # 9.3 H Lymphocytes # 3.4 H Monocytes # 1.3 H Eosinophils # 0.3 Basophils # 0.1 Nucleated Red Blood 0.0 Cells # Sodium Level 135 Potassium Level 3.7 Chloride Level 100 Carbon Dioxide Level 22 Anion Gap 13 Blood Urea Nitrogen 38 H Creatinine 5.89 H Est Glomerular 10 L Filtrat Rate mL/min Glucose Level 154 Calcium Level 7.4 L Total Bilirubin 0.3 Direct Bilirubin 0.00 Indirect Bilirubin 0.3 Aspartate Amino 21 Transf (AST/SGOT) Alanine 15 Aminotransferase (AL T/SGPT) Alkaline Phosphatase 115 Total Protein 6.8 Albumin 3.1 L Globulin 3.70 H Albumin/Globulin 0.83 Ratio Bedside Glucose 198 Medications Medication Current Medications Oxycodone/ Acetaminophen (Percocet (5/ 325)) 1 tab Q3H PRN PO PAIN LEVEL 1-5 Last administered on 11/12/18 13:54; Admin Dose 1 TAB; Start 10/07/18 at 21:00 Ondansetron HCl (Zofran Inj) 4 mg Q6H PRN IV NAUSEA AND/OR VOMITING Last administered on 10/21/18 12:10; Admin Dose 4 MG; Start 10/07/18 at 21:00 Acetaminophen (Tylenol Tab) 650 mg Q3H PRN PO ELEVATED TEMPERATURE Last administered on 11/12/18 12:27; Admin Dose 650 MG; Start 10/07/18 at 21:00 Atorvastatin Calcium (Lipitor) 40 mg HS PO Last administered on 11/11/18 21:16; Admin Dose 40 MG; Start 10/08/18 at 21:00 Insulin Aspart (Novolog Insulin Pen) NOVOLOG *MODERATE* ALGORITHM WITH MEALS BEDTIME SC Last administered on 11/12/18 12:32; Admin Dose 4 UNIT; Start 10/09/18 at 11:30 Glucose (Glutose) 15 gm Q15M PRN PO DECREASED GLUCOSE; Start 10/09/18 at 12:00 Glucose (Glutose) 22.5 gm Q15M PRN PO DECREASED GLUCOSE; Start 10/09/18 at 12:00 Dextrose (D50w Syringe) 25 ml Q15M PRN IV DECREASED GLUCOSE; Start 10/09/18 at 12:00 Dextrose (D50w Syringe) 50 ml Q15M PRN IV DECREASED GLUCOSE; Start 10/09/18 at 12:00 Glucagon (Glucagen) 1 mg Q15M PRN IM DECREASED GLUCOSE; Start 10/09/18 at 12:00 Glucose (Glutose) 15 gm Q15M PRN BUCCAL DECREASED GLUCOSE Last administered on 10/20/18 18:52; Admin Dose 15 GM; Start 10/09/18 at 12:00 Diagnostic Test (Pha) (Accu-Chek) 1 ea AC MEALS AND BEDTIME XX Last administered on 11/12/18 11:20; Admin Dose 1 EA; Start 10/09/18 at 11:00 Aspirin (Aspirin) 81 mg DAILY PO Last administered on 11/12/18 08:15; Admin Dose 81 MG; Start 10/13/18 at 09:00 Albumin Human 100 ml @ 100 mls/hr DURING DIALYSIS PRN IV BLOOD PRESSURE SUPPORT Last administered on 11/10/18 08:57; Admin Dose 100 MLS/HR; Start 10/13/18 at 11:30 Magnesium Hydroxide (Milk Of Mag) 30 ml DAILY PRN PO CONSTIPATION; Start 10/16/18 at 06:30 Heparin Sodium (Porcine) (Heparin (1000 Units/ml)) 500 unit WITH DIALYSIS HE Last administered on 11/10/18 08:21; Admin Dose 500 UNIT; Start 10/20/18 at 10:00 Heparin Sodium (Porcine) (Heparin (1000 Units/ml)) 1,500 unit WITH DIALYSIS HE Last administered on 11/10/18 08:21; Admin Dose 1,500 UNIT; Start 10/20/18 at 10:00 Ondansetron HCl (Zofran Tab) 4 mg Q6H PRN PO NAUSEA AND/OR VOMITING; Start 10/20/18 at 17:30 Epoetin Jero-epbx (Retacrit (Esrd)) 10,000 unit MoWeFr@1700 SC Last administered on 11/10/18at 17:49; Admin Dose 10,000 UNIT; Start 10/24/18 at 17:00 Guaifenesin/ Dextromethorphan (Robitussin Dm Liquid Cup) 10 ml Q4H PRN PO cough Last administered on 10/25/18at 15:49; Admin Dose 10 ML; Start 10/24/18 at 11:00 Alteplase, Recombinant (Cathflo (Activase)) 4 mg MAY REPEAT X1 PRN CATHETER IF CATHETER REMAINS OCCULUDED Last administered on 11/12/18 10:27; Admin Dose 3.2 MG; Start 10/29/18 at 14:00 Apixaban (Eliquis) 2.5 mg BID PO Last administered on 11/12/18 08:15; Admin Dose 2.5 MG; Start 10/31/18 at 21:00 Insulin Aspart (Novolog Insulin Pen) 7 unit WITH MEALS SC Last administered on 11/12/18 12:37; Admin Dose 7 UNIT; Start 11/01/18 at 11:50 Insulin Glargine (Lantus) 21 units DAILY@0830 SC Last administered on 11/12/18at 09:44; Admin Dose 21 UNITS; Start 11/02/18 at 08:30 Famotidine (Pepcid) 10 mg DAILY PO Last administered on 11/12/18 08:14; Admin Dose 10 MG; Start 11/03/18 at 09:00 Lactobacillus Acidophilus/ Rhamnosus (Culturelle) 1 cap BID PO Last administered on 11/12/18 08:15; Admin Dose 1 CAP; Start 11/02/18 at 21:00 Escitalopram Oxalate (Lexapro) 5 mg DAILY PO Last administered on 11/12/18 08:14; Admin Dose 5 MG; Start 11/03/18 at 09:00 Furosemide (Lasix) 20 mg DAILY PO Last administered on 11/12/18 08:15; Admin Dose 20 MG; Start 11/06/18 at 09:00 Miscellaneous Information 1 ea NOTE XX ; Start 11/07/18 at 18:00 Albuterol/ Ipratropium (Duoneb) 3 ml Q4H RESP THERAPY PRN HHN SHORTNESS OF BREATH; Start 11/07/18 at 22:00 Levalbuterol (Xopenex Neb) 1.25 mg Q4H RESP THERAPY PRN HHN SHORTNESS OF BREATH Last administered on 11/07/18 22:10; Admin Dose 1.25 MG; Start 11/07/18 at 22:00 Ipratropium [place] (Atrovent 0.02% (Neb)) 0.5 mg Q4H RESP THERAPY PRN HHN SHORTNESS OF BREATH Last administered on 11/07/18 22:10; Admin Dose 0.5 MG; Start 11/07/18 at 22:30 Levofloxacin (Levaquin) 500 mg Q48H PO Last administered on 11/11/18at 13:34; Admin Dose 500 MG; Start 11/11/18 at 13:00 Metronidazole (Flagyl) 500 mg Q8 PO Last administered on 11/12/18 13:54; Admin Dose 500 MG; Start 11/11/18 at 14:00 Miscellaneous Information 1 ea BID XX ; Start 11/12/18 at 10:00 Miscellaneous Information 1 ea BID XX ; Start 11/12/18 at 12:00 LORI VINES Nov 12, 2018 15:47
[2018-11-12] MEDS: EPOETIN ALFA-EPBX (ESRD) 10,000 UNIT/ML VIAL SC SCH (18:23)
--- NOTE | 2018-11-12 18:52 | PN ---
Date/Time of Note Date/Time of Note DATE: 11/12/18 TIME: 18:42 Assessment/Plan Lines/Catheters IV Catheter Type (from Nrsg): Mid Line Pierre in Place (from Nrsg): No Assessment/Plan Chief Complaint/Hosp Course -Bilateral lower extremity atherosclerosis with left lower extremity with left lower extremity gangrene: It seems that the patient's left lower extremity third toe has become dry gangrene and currently stable. Unfortunately his first and second toe have also become gangrene with no significant erythema. The patient's foot pain has gradually improved since we had seen him a month ago and followed him in the office over the past few weeks. From a vascular surgery standpoint, recommend no current intervention as the patient had episode of upper gastrointestinal bleed and subsequently CABG. We are hoping that the patient's lower extremity atherosclerotic disease will not worsen during this period of time. Resume anticoagulation and antiplatelet therapy when cleared by multidisciplinary team. There is concern he may require an amputation should he not improve and develop worsening gangrene. This was discussed in detail with the family given his plethora of medical conditions. -Will plan for an angiogram of the LLE once patient is cleared from GIU standpoint and will need to hold his anticoagulation and transition to a short term anticoagulant. The analytical laboratory technician also has flooded and will await that transition as well -He had developed new cellulitis of the forefoot associated with pain. Upon podiatry colleagues evaluation the patient required an I&D followed by an open TM A secondary to the gangrene. From vascular standpoint the patient will likely be limited with intervention given his recent episode of GI bleed and CABG. -S/P LLE TMA -Bilateral lower extremity varicose veins and edema: The patient has component of mixed disease (venous insufficiency and arterial sufficiency). At the moment, we recommend elevation of the bilateral lower extremities while at rest. No further intervention will be needed and can be followed as an outpatient in regards to venous insufficiency. -End-stage renal disease: At the moment the patient's left upper extremity fistula is nonfunctional. 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 I've been asked by our multidisciplinary team to re-evaluate. Upon lower extremity venogram there is large collateralization that has developed with the iliac veins secondary to the infrarenal IVC. I have thoroughly spoken with the patient's family and at the bedside regarding further interventions and they understand the full scope of what is involved and limitations at [facility]. Unable to perform multidisciplinary approach for transhepatic catheter intervention and no IR interventionalist available. Further, may be a candidate for azygous catheter placement however unable to perform re-canalization secondary to limitation of our angio suite. As the patient will require advanced intervention for dialysis access will need to be transferred to a tertiary center secondary to limited resources. Our multidisciplinary team has agreed with the plan and involved in the decision. Certified video software engineer present. Discussed plan, management, findings with the patient and family and they understood what is involved. Optimize vascular status (BP meds, cholesterol, sugar control, antiplatelets, weight loss) Subjective 24 Hr Interval Summary Constitutional: no complaints Exam/Review of Systems Vital Signs Vitals Vital Signs Date Temp Pulse Resp B/P (MAP) Pulse Ox O2 O2 Flow FiO2 Time Delivery Rate 11/13/18 97.9 79 18 122/50 95 07:23 (74) 11/13/18 Nasal 04:36 Cannula 11/12/18 2.0 20:30 11/12/18 21 04:24 Intake and Output 11/12/18 11/12/18 11/13/18 1515:00 23:00 07:00 IntakeIntake Total 240 ml 240 ml 350 ml OutputOutput Total 1000 ml 0 ml BalanceBalance -760 ml 240 ml 350 ml Exam Free Text/Dictation GENERAL: Awake. PULMONARY: Coarse BS bilaterally, CARDIOVASCULAR: S1, S2 present. Dressing intact ABDOMEN: Soft, nontender, nondistended. Bowel sounds positive. Large truncal obesity. EXTREMITIES: Right lower extremity palpable femoral pulse, nonpalpable pedal pulse. Motor, sensory intact. Cap refill 3 to 4 seconds. Presence of varicose veins and large leg. Left lower extremity palpable femoral pulse, nonpalpable pedal pulse. Motor, sensory intact. Cap refill 3 to 4 seconds. TMA site with dressing intact, Heel gangrene developed. groin catheter intact, cellulitis and tenderness decreased Varicose veins and edema of the left lower extremity with presence of mild lipodermatosclerosis. Left upper extremity: Palpable brachial pulse, motor/sensory intact, fistula with bruit and thrill not present Results Result Diagram: 11/13/18 0625 11/13/18 0625 VANIA PEREYRA MD Nov 12, 2018 18:52
[2018-11-12] MEDS: ATORVASTATIN 40 MG TAB PO SCH (20:12)
[2018-11-12] MEDS: ONDANSETRON 4 MG INJ IV PRN (20:19)
[2018-11-12] MEDS ORDERED: ZOLPIDEM 5 MG TAB PO ONE (21:00)
[2018-11-13] VITALS (25 sets, daily range): BP systolic 94–122; BP diastolic 33–63; PULSE 55–101; RESP 18–22
[2018-11-13] MEDS: metroNIDAZOLE 500 MG TAB PO SCH ×3 (06:20→21:07)
--- NOTE | 2018-11-13 06:58 | CONS ---
Assessment/Plan Assessment/Plan Hospital Course (Demo Recall) Back pain with HD: upper back pain, unclear etiology. EKG nonischemic. CXR not very remarkable. HD access is from the groin. 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 Resolved but has not had repeat HD yet Left foot gangrene: due to embolization. s/p transmetatarsal amputation 11/07/18 Afib/flutter: new onset, rates controlled. Now on Eliquis CAD s/p CABG: CABG x4 10/07/18, ÁLVAREZ to LAD, SVG to ramus, SVG to OM1 sequenced to OM2. NSTEMI: Trop peak 1.1 and trended down. S/p cath 09/30/18 with diffuse multivessel CAD. CABG as above Upper GI bleed: due to anastomotic ulcer seen on EGD 09/26. No bleeding since. Hgb relatively stable. Anemia: due to above. s/p 5 units PRBCs and 2 units intraop. Now low again ~7 but no active bleeding Kurt: Kaylee 1. Not on BB. No pauses or high grade block. 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 Unable to place right IJ. Now s/p left femoral permacath 10/24 which clotted but started to work again HTN H/o Billroth Depression: now on meds Cholecystitis: resolved -repeat peripheral angio with Dr. Mejia possibly Saturday -continue Eliquis 2.5mg BID as no active bleeding -antibiotics -ASA 81mg -continue to hold metoprolol as pt has bradycardia/hypotension -lipitor 40mg -lasix 20mg PO -HD per nephrology Consultation Date/Type/Reason Admit Date/Time September 24, 2018 at 08:08 Initial Consult Date 09/24/18 Type of Consult Cardiology Date/Time of Note DATE: 11/13/18 TIME: 06:56 24 HR Interval Summary Free Text/Dictation No events. Plan for peripheral angio Saturday No further back pain. Remains anxious and wants to stand up though oriented. No chest pain or dyspnea Exam/Review of Systems Vital Signs Vitals Vital Signs Date Temp Pulse Resp B/P (MAP) Pulse Ox O2 O2 Flow FiO2 Time Delivery Rate 11/13/18 71 05:24 11/13/18 98.1 22 112/63 94 Nasal 04:36 (79) Cannula 11/12/18 2.0 20:30 11/12/18 21 04:24 Intake and Output 11/12/18 11/12/18 11/13/18 1515:00 23:00 07:00 IntakeIntake Total 240 ml 240 ml 300 ml OutputOutput Total 1000 ml 0 ml BalanceBalance -760 ml 240 ml 300 ml Exam Constitutional: alert, oriented Psych: anxiety Head: normocephalic, atraumatic Neck: jvd (8cm) Respiratory: crackles/rales (mild); No clear to auscultation Cardiovascular: No regular rate and rhythm, No edema Gastrointestinal: soft, non-tender; No distended Musculoskeletal: No nl extremities to inspection 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: nl mental status, nl speech Labs Result Diagram: 11/13/18 0625 11/12/18 1019 Results 24hrs Laboratory Tests Test 11/12/18 08:00 11/12/18 10:19 11/12/18 12:29 11/12/18 17:37 Bedside Glucose 130 198 97 White Blood Count 14.6 #H Red Blood Count 3.15 L Hemoglobin 8.0 L Hematocrit 27.6 L Mean Corpuscular 87.6 Volume Mean Corpuscular 25.4 L Hemoglobin Mean Corpuscular 29.0 L Hemoglobin Concent Red Cell 17.3 H Distribution Width Platelet Count 358 Mean Platelet Volume 9.6 Immature 0.900 H Granulocytes % Neutrophils % 64.1 Lymphocytes % 23.1 Monocytes % 8.8 Eosinophils % 2.3 Basophils % 0.8 Nucleated Red Blood 0.0 Cells % Immature 0.130 H Granulocytes # Neutrophils # 9.3 H Lymphocytes # 3.4 H Monocytes # 1.3 H Eosinophils # 0.3 Basophils # 0.1 Nucleated Red Blood 0.0 Cells # Sodium Level 135 Potassium Level 3.7 Chloride Level 100 Carbon Dioxide Level 22 Anion Gap 13 Blood Urea Nitrogen 38 H Creatinine 5.89 H Est Glomerular 10 L Filtrat Rate mL/min Glucose Level 154 Calcium Level 7.4 L Total Bilirubin 0.3 Direct Bilirubin 0.00 Indirect Bilirubin 0.3 Aspartate Amino 21 Transf (AST/SGOT) Alanine 15 Aminotransferase (AL T/SGPT) Alkaline Phosphatase 115 Total Protein 6.8 Albumin 3.1 L Globulin 3.70 H Albumin/Globulin 0.83 Ratio Test 11/12/18 20:09 11/13/18 06:25 Bedside Glucose 127 White Blood Count 9.4 # Red Blood Count 2.90 L Hemoglobin 7.3 L Hematocrit 25.1 L Mean Corpuscular 86.6 Volume Mean Corpuscular 25.2 L Hemoglobin Mean Corpuscular 29.1 L Hemoglobin Concent Red Cell 17.5 H Distribution Width Platelet Count 383 Mean Platelet Volume 9.8 Immature 0.600 H Granulocytes % Neutrophils % 62.0 Lymphocytes % 27.9 Monocytes % 7.1 Eosinophils % 1.6 Basophils % 0.8 Nucleated Red Blood 0.0 Cells % Immature 0.060 H Granulocytes # Neutrophils # 5.8 Lymphocytes # 2.6 Monocytes # 0.7 Eosinophils # 0.2 Basophils # 0.1 Nucleated Red Blood 0.0 Cells # Medications Medications Current Medications Oxycodone/ Acetaminophen (Percocet (5/ 325)) 1 tab Q3H PRN PO PAIN LEVEL 1-5 Last administered on 11/12/18at 13:54; Admin Dose 1 TAB; Start 10/07/18 at 21:00 Ondansetron HCl (Zofran Inj) 4 mg Q6H PRN IV NAUSEA AND/OR VOMITING Last administered on 11/12/18 20:19; Admin Dose 4 MG; Start 10/07/18 at 21:00 Acetaminophen (Tylenol Tab) 650 mg Q3H PRN PO ELEVATED TEMPERATURE Last adm inistered on 11/12/18at 12:27; Admin Dose 650 MG; Start 10/07/18 at 21:00 Atorvastatin Calcium (Lipitor) 40 mg HS PO Last administered on 11/12/18at 20:12; Admin Dose 40 MG; Start 10/08/18 at 21:00 Insulin Aspart (Novolog Insulin Pen) NOVOLOG *MODERATE* ALGORITHM WITH MEALS BEDTIME SC Last administered on 11/12/18 12:32; Admin Dose 4 UNIT; Start 10/09/18 at 11:30 Glucose (Glutose) 15 gm Q15M PRN PO DECREASED GLUCOSE; Start 10/09/18 at 12:00 Glucose (Glutose) 22.5 gm Q15M PRN PO DECREASED GLUCOSE; Start 10/09/18 at 12:00 Dextrose (D50w Syringe) 25 ml Q15M PRN IV DECREASED GLUCOSE; Start 10/09/18 at 12:00 Dextrose (D50w Syringe) 50 ml Q15M PRN IV DECREASED GLUCOSE; Start 10/09/18 at 12:00 Glucagon (Glucagen) 1 mg Q15M PRN IM DECREASED GLUCOSE; Start 10/09/18 at 12:00 Glucose (Glutose) 15 gm Q15M PRN BUCCAL DECREASED GLUCOSE Last administered on 10/20/18 18:52; Admin Dose 15 GM; Start 10/09/18 at 12:00 Diagnostic Test (Pha) (Accu-Chek) 1 ea AC MEALS AND BEDTIME XX Last administ ered on 11/12/18 20:32; Admin Dose 1 EA; Start 10/09/18 at 11:00 Aspirin (Aspirin) 81 mg DAILY PO Last administered on 11/12/18 08:15; Admin Dose 81 MG; Start 10/13/18 at 09:00 Albumin Human 100 ml @ 100 mls/hr DURING DIALYSIS PRN IV BLOOD PRESSURE SUPPORT Last administered on 11/10/18 08:57; Admin Dose 100 MLS/HR; Start 10/13/18 at 11:30 Magnesium Hydroxide (Milk Of Mag) 30 ml DAILY PRN PO CONSTIPATION; Start 10/16/18 at 06:30 Heparin Sodium (Porcine) (Heparin (1000 Units/ml)) 500 unit WITH DIALYSIS HE Last administered on 11/10/18 08:21; Admin Dose 500 UNIT; Start 10/20/18 at 10:00 Heparin Sodium (Porcine) (Heparin (1000 Units/ml)) 1,500 unit WITH DIALYSIS HE Last administered on 11/10/18 08:21; Admin Dose 1,500 UNIT; Start 10/20/18 at 10:00 Ondansetron HCl (Zofran Tab) 4 mg Q6H PRN PO NAUSEA AND/OR VOMITING; Start 10/20/18 at 17:30 Epoetin Jero-epbx (Retacrit (Esrd)) 10,000 unit MoWeFr@1700 SC Last administered on 11/12/18 18:23; Admin Dose 10,000 UNIT; Start 10/24/18 at 17:00 Guaifenesin/ Dextromethorphan (Robitussin Dm Liquid Cup) 10 ml Q4H PRN PO cough Last administered on 6/1/19at 15:49; Admin Dose 10 ML; Start 10/24/18 at 11:00 Alteplase, Recombinant (Cathflo (Activase)) 4 mg MAY REPEAT X1 PRN CATHETER IF CATHETER REMAINS OCCULUDED Last administered on 11/12/18 10:27; Admin Dose 3.2 MG; Start 10/29/18 at 14:00 Apixaban (Eliquis) 2.5 mg BID PO Last administered on 11/12/18 20:12; Admin Dose 2.5 MG; Start 10/31/18 at 21:00 Insulin Aspart (Novolog Insulin Pen) 7 unit WITH MEALS SC Last administered on 11/12/18 12:37; Admin Dose 7 UNIT; Start 11/01/18 at 11:50 Insulin Glargine (Lantus) 21 units DAILY@0830 SC Last administered on 11/12/18 09:44; Admin Dose 21 UNITS; Start 11/02/18 at 08:30 Famotidine (Pepcid) 10 mg DAILY PO Last administered on 11/12/18 08:14; Admin Dose 10 MG; Start 11/03/18 at 09:00 Lactobacillus Acidophilus/ Rhamnosus (Culturelle) 1 cap BID PO Last administered on 11/12/18 20:12; Admin Dose 1 CAP; Start 11/02/18 at 21:00 Escitalopram Oxalate (Lexapro) 5 mg DAILY PO Last administered on 11/12/18 08:14; Admin Dose 5 MG; Start 11/03/18 at 09:00 Furosemide (Lasix) 20 mg DAILY PO Last administered on 11/12/18 08:15; Admin Dose 20 MG; Start 11/06/18 at 09:00 Miscellaneous Information 1 ea NOTE XX ; Start 11/07/18 at 18:00 Albuterol/ Ipratropium (Duoneb) 3 ml Q4H RESP THERAPY PRN HHN SHORTNESS OF BREATH; Start 11/07/18 at 22:00 Levalbuterol (Xopenex Neb) 1.25 mg Q4H RESP THERAPY PRN HHN SHORTNESS OF BREATH Last administered on 11/07/18at 22:10; Admin Dose 1.25 MG; Start 11/07/18 at 22:00 Ipratropium [place] (Atrovent 0.02% (Neb)) 0.5 mg Q4H RESP THERAPY PRN HHN SHORTNESS OF BREATH Last administered on 11/07/18at 22:10; Admin Dose 0.5 MG; Start 11/07/18 at 22:30 Levofloxacin (Levaquin) 500 mg Q48H PO Last administered on 11/11/18at 13:34; Admin Dose 500 MG; Start 11/11/18 at 13:00 Metronidazole (Flagyl) 500 mg Q8 PO Last administered on 11/13/18at 06:20; Admin Dose 500 MG; Start 11/11/18 at 14:00 Miscellaneous Information 1 ea BID XX ; Start 11/12/18 at 10:00 Miscellaneous Information 1 ea BID XX ; Start 11/12/18 at 12:00 LAVON SEE Nov 13, 2018 06:58
[2018-11-13] MEDS: ACCU-CHEK XX SCH ×4 (07:25→21:08)
[2018-11-13] MEDS: INSULIN ASPART [NOVOLOG] 3 ML PEN SC SCH ×7 (07:55→21:00)
[2018-11-13] MEDS: FAMOTIDINE 20 MG TAB PO SCH (08:16)
[2018-11-13] MEDS: FUROSEMIDE 40 MG TAB PO SCH (08:18)
[2018-11-13] MEDS: ESCITALOPRAM 10 MG TAB PO SCH (08:18)
[2018-11-13] MEDS: LACTOBACILLUS RHAMNOSUS CAP PO SCH ×2 (08:19→21:07)
[2018-11-13] MEDS: APIXABAN 5 MG TABLET PO SCH ×2 (08:20→21:07)
[2018-11-13] MEDS: ASPIRIN 81 MG TAB PO SCH (08:20)
[2018-11-13] MEDS: INSULIN GLARGINE [LANTus] (100 UNITS/ML) SYG SC SCH (08:29)
[2018-11-13] MEDS: (Nursing Note) XX SCH ×4 (09:00→21:00)
[2018-11-13] MEDS: BALSAM PERU/CASTOR OIL 60 GM TUBE TOP SCH (09:00)
--- NOTE | 2018-11-13 10:45 | CONS ---
Assessment/Plan Assessment/Plan Assessment/Plan (Daily) 1. acute Hyperkalemia due to GI bleeding- resolved 2.Acute fluid overload- now resolved 3. acute GI bleeding causing acute blood loss anemia- S/p Status post EGD/colonoscopy 09/27/19 -Anastomosis ulcer -Normal colonoscopy 4. Severe Anemia with Hb 5.8 on admission s/p 5 U PRBC transfusion for GI ble eding during this admission - pt also has anemia of ESRD 5. H/O HTN 6. H/O peripherla vascular disease 7. ESRD on HD -follow up at [facility] [place] for scheduled HD on MWF 8. 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 S/p transmetatarsal resection 11/07. Continue abx for now. Wound vac. 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 Unable to place right IJ by IR due to central stenosis. Now s/p left femoral permacath 10/24 but still intermittently getting clotted- Discussed with Dr. Velasco - Recommended for higher level of care for difficult HD access, will need IR or vascular surgery at Tertiary center to address HD access establishment due to IVC thrombosis and Central stenosis s/p HD on Saturday 2 L removed - Plan for HD today, , continue Eliquis 2.5 mg PO BID we will keep pt on MWF schedule ( his original schedule)- last 4 sessions HD catheter has worked change lasix to 20mg po daily with holding parameters due to low BP Epogen 26729 units SQ MWF- Hb 8.8 on 11/03/18- no labs since then will follow up Patient seen in collaboration with Dr Tobar Consultation Date/Type/Reason Admit Date/Time September 24, 2018 at 08:08 Initial Consult Date 09/24/18 Type of Consult NEPHROLOGY Reason for Consultation ESRD Date/Time of Note DATE: 11/13/18 TIME: 10:44 24 HR Interval Summary Free Text/Dictation HD today Constitutional: requiring O2 Detailed Summary Eyes: no complaints ENT: no complaints Respiratory: no complaints Cardiovascular: no complaints Gastrointestinal: no complaints Skin: no complaints Psychological: nl mood/affect Exam/Review of Systems Exam Vitals Vital Signs Date Temp Pulse Resp B/P (MAP) Pulse Ox O2 O2 Flow FiO2 Time Delivery Rate 11/13/18 69 08:00 11/13/18 97.9 18 122/50 95 07:23 (74) 11/13/18 Nasal 04:36 Cannula 11/12/18 2.0 20:30 11/12/18 21 04:24 Intake and Output 11/12/18 11/12/18 11/13/18 1515:00 23:00 07:00 IntakeIntake Total 240 ml 240 ml 350 ml OutputOutput Total 1000 ml 0 ml BalanceBalance -760 ml 240 ml 350 ml Constitutional: alert Psych: nl mood/affect Eyes: nl lids, nl sclera ENMT: nl external ears & nose Neck: non-tender Respiratory: diminished breath sounds Cardiovascular: nl pulses, other (s1s2) Gastrointestinal: soft, non-tender Musculoskeletal: joint tenderness, muscle weakness, range of motion Extremities: normal pulses 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: nl speech, other (alert, responsive) Lymph: nontender Results Result Diagram: 11/13/18 0625 11/13/18 0625 Results 24hrs Laboratory Tests Test 11/12/18 12:29 11/12/18 17:37 11/12/18 20:09 11/13/18 06:25 Bedside Glucose 198 97 127 White Blood Count 9.4 # Red Blood Count 2.90 L Hemoglobin 7.3 L Hematocrit 25.1 L Mean Corpuscular 86.6 Volume Mean Corpuscular 25.2 L Hemoglobin Mean Corpuscular 29.1 L Hemoglobin Concent Red Cell 17.5 H Distribution Width Platelet Count 383 Mean Platelet Volume 9.8 Immature 0.600 H Granulocytes % Neutrophils % 62.0 Lymphocytes % 27.9 Monocytes % 7.1 Eosinophils % 1.6 Basophils % 0.8 Nucleated Red Blood 0.0 Cells % Immature 0.060 H Granulocytes # Neutrophils # 5.8 Lymphocytes # 2.6 Monocytes # 0.7 Eosinophils # 0.2 Basophils # 0.1 Nucleated Red Blood 0.0 Cells # Sodium Level 137 Potassium Level 4.1 Chloride Level 102 Carbon Dioxide Level 20 L Anion Gap 15 H Blood Urea Nitrogen 47 H Creatinine 7.04 H Est Glomerular 8 L Filtrat Rate mL/min Glucose Level 149 Calcium Level 7.3 L Test 11/13/18 07:51 Bedside Glucose 133 Medications Medication Current Medications Oxycodone/ Acetaminophen (Percocet (5/ 325)) 1 tab Q3H PRN PO PAIN LEVEL 1-5 Last administered on 11/12/18 13:54; Admin Dose 1 TAB; Start 10/07/18 at 21:00 Ondansetron HCl (Zofran Inj) 4 mg Q6H PRN IV NAUSEA AND/OR VOMITING Last administered on 11/12/18 20:19; Admin Dose 4 MG; Start 10/07/18 at 21:00 Acetaminophen (Tylenol Tab) 650 mg Q3H PRN PO ELEVATED TEMPERATURE Last administered on 11/12/18 12:27; Admin Dose 650 MG; Start 10/07/18 at 21:00 Atorvastatin Calcium (Lipitor) 40 mg HS PO Last administered on 11/12/18 20:12; Admin Dose 40 MG; Start 10/08/18 at 21:00 Insulin Aspart (Novolog Insulin Pen) NOVOLOG *MODERATE* ALGORITHM WITH MEALS BEDTIME SC Last administered on 11/12/18 12:32; Admin Dose 4 UNIT; Start 10/09/18 at 11:30 Glucose (Glutose) 15 gm Q15M PRN PO DECREASED GLUCOSE; Start 10/09/18 at 12:00 Glucose (Glutose) 22.5 gm Q15M PRN PO DECREASED GLUCOSE; Start 10/09/18 at 12:0 0 Dextrose (D50w Syringe) 25 ml Q15M PRN IV DECREASED GLUCOSE; Start 10/09/18 at 12:00 Dextrose (D50w Syringe) 50 ml Q15M PRN IV DECREASED GLUCOSE; Start 10/09/18 at 12:00 Glucagon (Glucagen) 1 mg Q15M PRN IM DECREASED GLUCOSE; Start 10/09/18 at 12:00 Glucose (Glutose) 15 gm Q15M PRN BUCCAL DECREASED GLUCOSE Last administered on 10/20/18 18:52; Admin Dose 15 GM; Start 10/09/18 at 12:00 Diagnostic Test (Pha) (Accu-Chek) 1 ea AC MEALS AND BEDTIME XX Last administered on 11/12/18 20:32; Admin Dose 1 EA; Start 10/09/18 at 11:00 Aspirin (Aspirin) 81 mg DAILY PO Last administered on 11/13/18 08:20; Admin Dose 81 MG; Start 10/13/18 at 09:00 Albumin Human 100 ml @ 100 mls/hr DURING DIALYSIS PRN IV BLOOD PRESSURE SUPPORT Last administered on 11/10/18 08:57; Admin Dose 100 MLS/HR; Start 10/13/18 at 11:30 Magnesium Hydroxide (Milk Of Mag) 30 ml DAILY PRN PO CONSTIPATION; Start 10/16/18 at 06:30 Heparin Sodium (Porcine) (Heparin (1000 Units/ml)) 500 unit WITH DIALYSIS HE Last administered on 11/10/18 08:21; Admin Dose 500 UNIT; Start 10/20/18 at 10:00 Heparin Sodium (Porcine) (Heparin (1000 Units/ml)) 1,500 unit WITH DIALYSIS HE Last administered on 11/10/18 08:21; Admin Dose 1,500 UNIT; Start 10/20/18 at 10:00 Ondansetron HCl (Zofran Tab) 4 mg Q6H PRN PO NAUSEA AND/OR VOMITING; Start 10/20/18 at 17:30 Epoetin Jero-epbx (Retacrit (Esrd)) 10,000 unit MoWeFr@1700 SC Last administered on 11/12/18 18:23; Admin Dose 10,000 UNIT; Start 10/24/18 at 17:00 Guaifenesin/ Dextromethorphan (Robitussin Dm Liquid Cup) 10 ml Q4H PRN PO cough Last administered on 10/25/18 15:49; Admin Dose 10 ML; Start 10/24/18 at 11:00 Alteplase, Recombinant (Cathflo (Activase)) 4 mg MAY REPEAT X1 PRN CATHETER IF CATHETER REMAINS OCCULUDED Last administered on 11/12/18 10:27; Admin Dose 3.2 MG; Start 10/29/18 at 14:00 Apixaban (Eliquis) 2.5 mg BID PO Last administered on 11/13/18 08:20; Admin Dose 2.5 MG; Start 10/31/18 at 21:00 Insulin Aspart (Novolog Insulin Pen) 7 unit WITH MEALS SC Last administered on 11/12/18 12:37; Admin Dose 7 UNIT; Start 11/01/18 at 11:50 Insulin Glargine (Lantus) 21 units DAILY@0830 SC Last administered on 11/13/18 08:29; Admin Dose 21 UNITS; Start 11/02/18 at 08:30 Famotidine (Pepcid) 10 mg DAILY PO Last administered on 11/13/18 08:16; Admin Dose 10 MG; Start 11/03/18 at 09:00 Lactobacillus Acidophilus/ Rhamnosus (Culturelle) 1 cap BID PO Last a dministered on 11/13/18 08:19; Admin Dose 1 CAP; Start 11/02/18 at 21:00 Escitalopram Oxalate (Lexapro) 5 mg DAILY PO Last administered on 11/13/18at 08:18; Admin Dose 5 MG; Start 11/03/18 at 09:00 Furosemide (Lasix) 20 mg DAILY PO Last administered on 11/13/18 08:18; Admin Dose 20 MG; Start 11/06/18 at 09:00 Miscellaneous Information 1 ea NOTE XX ; Start 11/07/18 at 18:00 Albuterol/ Ipratropium (Duoneb) 3 ml Q4H RESP THERAPY PRN HHN SHORTNESS OF BREATH; Start 11/07/18 at 22:00 Levalbuterol (Xopenex Neb) 1.25 mg Q4H RESP THERAPY PRN HHN SHORTNESS OF BREATH Last administered on 11/07/18 22:10; Admin Dose 1.25 MG; Start 11/07/18 at 22:00 Ipratropium [place] (Atrovent 0.02% (Neb)) 0.5 mg Q4H RESP THERAPY PRN HHN SHORTNESS OF BREATH Last administered on 11/07/18at 22:10; Admin Dose 0.5 MG; Start 11/07/18 at 22:30 Levofloxacin (Levaquin) 500 mg Q48H PO Last administered on 11/11/18at 13:34; Admin Dose 500 MG; Start 11/11/18 at 13:00 Metronidazole (Flagyl) 500 mg Q8 PO Last administered on 11/13/18 06:20; Admin Dose 500 MG; Start 11/11/18 at 14:00 Miscellaneous Information 1 ea BID XX ; Start 11/12/18 at 10:00 Miscellaneous Information 1 ea BID XX ; Start 11/12/18 at 12:00 CATARINA GONCALVES Nov 13, 2018 10:45
[2018-11-13] MEDS ORDERED: SOD CHLORIDE 0.9% 250 ML IV* ONE (10:50)
[2018-11-13] MEDS ORDERED: SULF1TAB31 PO (10:50)
[2018-11-13] MEDS: HEPARIN 1000 UNITS/ML 10 ML INJ HE SCH ×2 (13:49)
[2018-11-13] MEDS: ALTEPLASE (CATHFLO) 2 MG INJ CATHETER PRN (16:47)
[2018-11-13] MEDS: LEVOFLOXACIN 500 MG TAB PO SCH (17:58)
[2018-11-13] MEDS ORDERED: ZOLPIDEM 5 MG TAB PO PRN (21:00)
[2018-11-13] MEDS: ATORVASTATIN 40 MG TAB PO SCH (21:07)
[2018-11-13] MEDS: PREGABALIN 75 MG CAP PO PRN (21:34)
[2018-11-14] VITALS (23 sets, daily range): BP systolic 91–122; BP diastolic 36–68; PULSE 50–84; RESP 18
[2018-11-14] MEDS: metroNIDAZOLE 500 MG TAB PO SCH ×2 (06:39→16:51)
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
[2018-11-14] MEDS: ACCU-CHEK XX SCH ×3 (07:25→17:25)
--- NOTE | 2018-11-14 07:43 | RADRPT ---
Vent Rate: 79 bpm RR Interval: 756 msec OK Interval: [id number] msec QRS Duration: 122 msec QT Interval: 327 msec QTC Interval: 376 msec P-R-T [place]: [id number] - -100 - -73 degrees Atrial fibrillation...? atrial activity Ventricular bigeminy...bigeminy string>4 w/ V complexes Right bundle branch block...QRSd>120, terminal axis(90,270) Inferior infarct, age indeterminate...Q>35mS, T neg, II III aVF Anterolateral infarct, age indeterminate...Q >35mS, flat/neg T, V3-V6,I,aVL Electronically Signed By: Darrell Hernandez
[2018-11-14] MEDS: INSULIN ASPART [NOVOLOG] 3 ML PEN SC SCH ×6 (07:55→17:53)
[2018-11-14] MEDS: LACTOBACILLUS RHAMNOSUS CAP PO SCH (08:15)
[2018-11-14] MEDS: ESCITALOPRAM 10 MG TAB PO SCH (08:16)
[2018-11-14] MEDS: FAMOTIDINE 20 MG TAB PO SCH (08:17)
[2018-11-14] MEDS: FUROSEMIDE 40 MG TAB PO SCH (08:18)
[2018-11-14] MEDS: APIXABAN 5 MG TABLET PO SCH (08:19)
[2018-11-14] MEDS: ASPIRIN 81 MG TAB PO SCH (08:21)
[2018-11-14] MEDS: INSULIN GLARGINE [LANTus] (100 UNITS/ML) SYG SC SCH (08:31)
[2018-11-14] MEDS: BALSAM PERU/CASTOR OIL 60 GM TUBE TOP SCH (09:00)
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
[2018-11-14] MEDS: OXYCODONE/ACETAMINOPHEN (5/325) TAB PO PRN (10:41)
[2018-11-14] MEDS: PREGABALIN 75 MG CAP PO PRN (12:51)
[2018-11-14] MEDS: HEPARIN 1000 UNITS/ML 10 ML INJ HE SCH ×2 (13:37→13:38)
[2018-11-14] MEDS ORDERED: ALBUMIN HUMAN 25% 100 ML IV PRN (14:30)
--- NOTE | 2018-11-14 16:19 | PN ---
Date/Time of Note Date/Time of Note DATE: 11/13/18 TIME: 16:18 Assessment/Plan VTE Prophylaxis Risk score (from Nsg)>0 risk: 3 Pharmacological prophylaxis: NA/contraindicated Pharm contraindication: surgical contra Lines/Catheters IV Catheter Type (from Nrs): Mid Line Urinary Cath still in place: No Assessment/Plan Hospital Course 67 yo with numerous comorbidities including dyslipidemia, IDDM, ESRD on HD and severe PVD who is also anticoagulated on Eliquis/Plavix,here with worsening malaise. Subsequently underwent CABG for severe CAD. HD has been complicated by issues with difficult access as he has extensive venous clots. Also underwent foot resection for wet gangrene currently with wound vac. Foot gangrene - IV abx. S/p transmetatarsal resection 11/07. Continue abx for now. Wound vac. Management per podiatry -Podiatry recommendation was for evaluation of vascular, vascular consultation appreciated, unable to do intervention at this time Cholecystitis: - Symptoms much better. s/p abx ESRD: - HD per renal via femoral access IVC clot: - Eliquis NSTEMI/Multivessel coronary artery disease - s/p LHC 09/30 - s/p CABG 10/07 - Cautiously resume beta blockers. - Anticoag, antiplatelet per CT surgery - Continue statin. Severe acute symptomatic blood loss anemia -Improved with multiple transfusion. -Continue iron Upper GI bleed -resolved -s/p EGD showed anastomotic ulcer (hx billroth II) -On PPI/Carafate Mobitz type I heart block - Now post CABG will resume beta blockers - Maintain on telemetry DMII -Sugars are stable -Continue current regimen Obesity with BMI 36.3 -Weight reduction advised. Anemia of ESRD -on Epogen with hemodialysis -Hemoglobin stable Depression -Started Paxil DVT prophylaxis: Eliquis PUD prophylaxis: Protonix DC planning: DC tomorrow Result Diagram: 11/13/18 0625 11/13/18 0625 Results 24hrs Laboratory Tests Test 11/13/18 17:54 11/13/18 21:05 11/14/18 07:47 11/14/18 12:21 Bedside Glucose 113 148 134 133 Subjective 24 Hr Interval Summary Free Text/Dictation Entry for 11/13/2018 Constitutional: no complaints Exam/Review of Systems Exam Vitals Vital Signs Date Temp Pulse Resp B/P (MAP) Pulse Ox O2 O2 Flow FiO2 Time Delivery Rate 11/14/18 77 13:22 11/14/18 18 108/36 98 Room Air 4.0 13:15 (60) 11/14/18 98.3 11:25 11/12/18 21 04:24 Intake and Output 11/13/18 11/13/18 11/14/18 1515:00 23:00 07:00 IntakeIntake Total 100 ml OutputOutput Total 200 ml 3600 ml BalanceBalance -200 ml -3600 ml 100 ml Constitutional: alert Respiratory: clear to auscultation Cardiovascular: regular rate and rhythm Gastrointestinal: soft; No distended Musculoskeletal: No nl extremities to inspection Results Results 24hrs Laboratory Tests Test 11/13/18 17:54 11/13/18 21:05 11/14/18 07:47 11/14/18 12:21 Bedside Glucose 113 148 134 133 Medications Medication Current Medications Oxycodone/ Acetaminophen (Percocet (5/ 325)) 1 tab Q3H PRN PO PAIN LEVEL 1-5 Last administered on 11/14/18at 10:41; Admin Dose 1 TAB; Start 10/07/18 at 21:00 Ondansetron HCl (Zofran Inj) 4 mg Q6H PRN IV NAUSEA AND/OR VOMITING Last administered on 11/12/18at 20:19; Admin Dose 4 MG; Start 10/07/18 at 21:00 Acetaminophen (Tylenol Tab) 650 mg Q3H PRN PO ELEVATED TEMPERATURE Last administered on 11/12/18at 12:27; Admin Dose 650 MG; Start 10/07/18 at 21:00 Atorvastatin Calcium (Lipitor) 40 mg HS PO Last administered on 11/13/18at 21:07; Admin Dose 40 MG; Start 10/08/18 at 21:00 Insulin Aspart (Novolog Insulin Pen) NOVOLOG *MODERATE* ALGORITHM WITH MEALS BEDTIME SC Last administered on 11/13/18at 11:50; Admin Dose 2 UNIT; Start 10/09/18 at 11:30 Glucose (Glutose) 15 gm Q15M PRN PO DECREASED GLUCOSE; Start 10/09/18 at 12:00 Glucose (Glutose) 22.5 gm Q15M PRN PO DECREASED GLUCOSE; Start 10/09/18 at 12:00 Dextrose (D50w Syringe) 25 ml Q15M PRN IV DECREASED GLUCOSE; Start 10/09/18 at 12:00 Dextrose (D50w Syringe) 50 ml Q15M PRN IV DECREASED GLUCOSE; Start 10/09/18 at 12:00 Glucagon (Glucagen) 1 mg Q15M PRN IM DECREASED GLUCOSE; Start 10/09/18 at 12:00 Glucose (Glutose) 15 gm Q15M PRN BUCCAL DECREASED GLUCOSE Last administered on 10/20/18 18:52; Admin Dose 15 GM; Start 10/09/18 at 12:00 Diagnostic Test (Pha) (Accu-Chek) 1 ea AC MEALS AND BEDTIME XX Last administered on 11/13/18 21:08; Admin Dose 1 EA; Start 10/09/18 at 11:00 Magnesium Hydroxide (Milk Of Mag) 30 ml DAILY PRN PO CONSTIPATION; Start 10/16/18 at 06:30 Heparin Sodium (Porcine) (Heparin (1000 Units/ml)) 500 unit WITH DIALYSIS HE Last administered on 11/14/18 13:37; Admin Dose 500 UNIT; Start 10/20/18 at 10:00 Heparin Sodium (Porcine) (Heparin (1000 Units/ml)) 1,500 unit WITH DIALYSIS HE Last administered on 11/14/18 13:38; Admin Dose 1,500 UNIT; Start 10/20/18 at 10:00 Ondansetron HCl (Zofran Tab) 4 mg Q6H PRN PO NAUSEA AND/OR VOMITING; Start 10/20/18 at 17:30 Epoetin Jero-epbx (Retacrit (Esrd)) 10,000 unit MoWeFr@1700 SC Last administered on 11/12/18 18:23; Admin Dose 10,000 UNIT; Start 10/24/18 at 17:00 Guaifenesin/ Dextromethorphan (Robitussin Dm Liquid Cup) 10 ml Q4H PRN PO cough Last administered on 10/25/18 15:49; Admin Dose 10 ML; Start 10/24/18 at 11:00 Alteplase, Recombinant (Cathflo (Activase)) 4 mg MAY REPEAT X1 PRN CATHETER IF CATHETER REMAINS OCCULUDED Last administered on 11/13/18at 16:47; Admin Dose 4 MG; Start 10/29/18 at 14:00 Apixaban (Eliquis) 2.5 mg BID PO Last administered on 11/14/18 08:19; Admin Dose 2.5 MG; Start 10/31/18 at 21:00 Insulin Aspart (Novolog Insulin Pen) 7 unit WITH MEALS SC Last administered on 11/14/18 12:55; Admin Dose 7 UNIT; Start 11/01/18 at 11:50 Insulin Glargine (Lantus) 21 units DAILY@0830 SC Last administered on 11/14/18 08:31; Admin Dose 21 UNITS; Start 11/02/18 at 08:30 Famotidine (Pepcid) 10 mg DAILY PO Last administered on 11/14/18 08:17; Admin Dose 10 MG; Start 11/03/18 at 09:00 Lactobacillus Acidophilus/ Rhamnosus (Culturelle) 1 cap BID PO Last administered on 11/14/18 08:15; Admin Dose 1 CAP; Start 11/02/18 at 21:00 Escitalopram Oxalate (Lexapro) 5 mg DAILY PO Last administered on 11/14/18 08:16; Admin Dose 5 MG; Start 11/03/18 at 09:00 Furosemide (Lasix) 20 mg DAILY PO Last administered on 11/14/18 08:18; Admin Dose 20 MG; Start 11/06/18 at 09:00 Miscellaneous Information 1 ea NOTE XX ; Start 11/07/18 at 18:00 Albuterol/ Ipratropium (Duoneb) 3 ml Q4H RESP THERAPY PRN HHN SHORTNESS OF BREATH; Start 11/07/18 at 22:00 Levalbuterol (Xopenex Neb) 1.25 mg Q4H RESP THERAPY PRN HHN SHORTNESS OF BREATH Last administered on 11/07/18at 22:10; Admin Dose 1.25 MG; Start 11/07/18 at 22: 00 Ipratropium [place] (Atrovent 0.02% (Neb)) 0.5 mg Q4H RESP THERAPY PRN HHN SHORTNESS OF BREATH Last administered on 11/07/18at 22:10; Admin Dose 0.5 MG; Start 11/07/18 at 22:30 Levofloxacin (Levaquin) 500 mg Q48H PO Last administered on 11/13/18at 17:58; Admin Dose 500 MG; Start 11/11/18 at 13:00 Metronidazole (Flagyl) 500 mg Q8 PO Last administered on 11/14/18at 06:39; Admin Dose 500 MG; Start 11/11/18 at 14:00 Miscellaneous Information 1 ea BID XX ; Start 11/12/18 at 10:00 Miscellaneous Information 1 ea BID XX ; Start 11/12/18 at 12:00 Pregabalin (Lyrica) 150 mg DAILY PRN PO PAIN AND/OR INFLAMMATION Last administered on 11/14/18at 12:51; Admin Dose 150 MG; Start 11/13/18 at 21:00 Zolpidem Tartrate (Ambien) 5 mg HS PRN PO INSOMNIA Last administered on 11/13/18 22:30; Admin Dose 5 MG; Start 11/13/18 at 21:00 Albumin Human 100 ml @ 100 mls/hr DURING DIALYSIS PRN IV HYPOTENSION Last administered on 11/14/18at 14:47; Admin Dose 100 MLS/HR; Start 11/14/18 at 14:30 LORI VINES Nov 14, 2018 16:19
[2018-11-14] MEDS: ALTEPLASE (CATHFLO) 2 MG INJ CATHETER PRN (16:26)
--- NOTE | 2018-11-14 16:26 | DS ---
Date/Time of Note Date/Time of Note DATE: 11/14/18 TIME: 16:20 Discharge Summary Admission/Discharge Info Admit Date/Time September 24, 2018 at 08:08 Discharge Date/Time November 14, 2018 Discharge Diagnosis Patient is a 67-year-old male with multiple medical issues including dyslipidemia, peripheral vascular disease, insulin-dependent diabetes, end-stage renal disease who initially presented with worsening malaise and was found to have a non-STEMI, cardiac cath revealed multivessel disease and patient underwent CABG. Patient's hospitalization was complicated by issues pertaining to peripheral vascular disease, specifically issues with obtaining access for dialysis and required transfer to outside facility for vascular access. Patient returned from outside facility with access and dialysis was resumed. Patient then developed foot gangrene and underwent TMA on 11/07 with podiatry, patient did require IV antibiotics as well as wound VAC. Of note patient also had upper GI bleed and underwent EGD which showed an anastomotic ulcer (hx billroth II). Patient was placed on a PPI and Carafate with stabilization of this issue. Patient was started on SSRIs for depression, patient required halfway placement which nurse outreach case manager did arrange. Cultures from the foot were noted and patient was to be on Bactrim for 2 weeks per podiatry recommendations. Patient did require several units of packed red blood cells during this hospitalization and developed back pain when his hemoglobin was too low. [facility] with a [facility]AC, on the day of discharge patient's vitals, labs and physical exam are stable. Patient is to follow-up with both podiatry and vascular surgery and will need further vascular interventions at a future time. Patient Condition: Good Hospital Course 67 yo with numerous comorbidities including dyslipidemia, IDDM, ESRD on HD and severe PVD who is also anticoagulated on Eliquis/Plavix,here with worsening malaise. Subsequently underwent CABG for severe CAD. HD has been complicated by issues with difficult access as he has extensive venous clots. Also underwent foot resection for wet gangrene currently with wound vac. Foot gangrene - IV abx. S/p transmetatarsal resection 11/07. Continue abx for now. Wound vac. Management per podiatry -Podiatry recommendation was for evaluation of vascular, vascular consultation appreciated, unable to do intervention at this time Cholecystitis: - Symptoms much better. s/p abx ESRD: - HD per renal via femoral access IVC clot: - Eliquis NSTEMI/Multivessel coronary artery disease - s/p LHC 09/30 - s/p CABG 10/07 - Cautiously resume beta blockers. - Anticoag, antiplatelet per CT surgery - Continue statin. Severe acute symptomatic blood loss anemia -Improved with multiple transfusion. -Continue iron Upper GI bleed -resolved -s/p EGD showed anastomotic ulcer (hx billroth II) -On PPI/Carafate Mobitz type I heart block - Now post CABG will resume beta blockers - Maintain on telemetry DMII -Sugars are stable -Continue current regimen Obesity with BMI 36.3 -Weight reduction advised. Anemia of ESRD -on Epogen with hemodialysis -Hemoglobin stable Depression -Started Paxil DVT prophylaxis: Eliquis PUD prophylaxis: Protonix DC planning: DC tomorrow Home Meds Active Scripts Sulfamethoxazole/Trimethoprim* (Bactrim Ds* Tablet) 1 Each Tablet, 1 TAB PO BID for 14 Days, #28 TAB Prov:LORI VINES 11/13/18 Follow-up Plan Cardiothoracic surgery Dr. Maciel Cardiology Dr. Hernandez GI Dr. Cardoza Vascular Dr. Kim Mejia Nephrology Dr. Roni Tobar Primary Care Provider Not On Staff Doctor Time spent on discharge: > 30 minutes LORI VINES Nov 14, 2018 16:26
[2018-11-14] MEDS: EPOETIN ALFA-EPBX (ESRD) 10,000 UNIT/ML VIAL SC SCH (16:57)
--- NOTE | 2018-11-19 17:03 | PN ---
Date/Time of Note Date/Time of Note DATE: 10/22/18 TIME: 17:03 Assessment/Plan VTE Prophylaxis Risk score (from Nsg)>0 risk: 3 SCD applied (from Ns): Yes Pharmacological prophylaxis: heparin Lines/Catheters IV Catheter Type (from Nrsg): Mid Line Urinary Cath still in place: No Assessment/Plan Hospital Course Alert, no distress AOx3 RRR Breathing comfortably No RUQ pain, soft nt nd no edema, venous stasis Gangrenous toes 67 yo with numerous comorbidities including dyslipidemia, IDDM, ESRD on HD and severe PVD who is also anticoagulated on Eliquis/Plavix,here with worsening malaise, found to have severe anemia/positive stool OB... also had NSTEMI ESRD: - Permacath placed - HD per Dr Toabr IVC clot: - Eliquis at discharge NSTEMI/Multivessel coronary artery disease - s/p LHC 09/30 - s/p CABG 10/07 - Cautiously resume beta blockers. - Anticoag, antiplatelet per CT surgery - Continue statin. Severe acute symptomatic blood loss anemia -Improved with multiple transfusion. 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 -Wound care #Obesity with BMI 36.3 -Weight reduction advised. #Anemia of ESRD -on Epogen with hemodialysis #Debility secondary to comorbidities -Continue PT -ARU eval #Depression -Started Paxil DVT prophylaxis: SCDs PUD prophylaxis: Protonix DC planning: Plan is for venogram with vascular on 10/23, continue PT Subjective 24 Hr Interval Summary Free Text/Dictation No acute events Exam/Review of Systems Exam Constitutional: alert, oriented, well developed Psych: no complaints, nl mood/affect Head: normocephalic, atraumatic Eyes: nl conjunctiva, EOMI, nl lids, nl sclera, PERRL ENMT: nl external ears & nose, nl lips & teeth, nl nasal mucosa & septum Neck: supple, non-tender Respiratory: clear to auscultation, normal air movement Cardiovascular: regular rate and rhythm, nl pulses Gastrointestinal: soft, nl liver, spleen, non-tender Musculoskeletal: nl extremities to inspection, nl gait and stance Extremities: normal pulses 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: RN CASE MANAGEMENT II-XII intact, nl mental status, nl speech, nl strength Skin: nl turgor; No rash or lesions Lymph: nl lymph nodes PAUL LINDER MD Nov 19, 2018 17:03
== END 2018-11-14 18:05 | DRG 233 ==
LOC: E/R 06:31 → TEL 08:08 → ICU 09-30 15:55 → 6WM 10-02 20:05 → ICU 10-07 14:33 → 6WM 10-12 02:23 → PP2 10-27 23:01 → TEL 10-29 18:50
PROVIDERS: ADMIT Family Medicine; ATTEND Internal Medicine
PROC: 30233N1 Transfusion of Nonautologous Red Blood Cells into Peripheral Vein, Percutaneous Approach (ICD-10-PCS; 2018-09-24)
PROC: 5A1D70Z Performance of Urinary Filtration, Intermittent, Less than 6 Hours Per Day (ICD-10-PCS; 2018-09-24)
PROC: 0DJ08ZZ Inspection of Upper Intestinal Tract, Via Natural or Artificial Opening Endoscopic (ICD-10-PCS; 2018-09-26)
PROC: 0DBP8ZX Excision of Rectum, Via Natural or Artificial Opening Endoscopic, Diagnostic (ICD-10-PCS; 2018-09-26)
PROC: 4A023N7 Measurement of Cardiac Sampling and Pressure, Left Heart, Percutaneous Approach (ICD-10-PCS; 2018-09-30)
PROC: B211YZZ Fluoroscopy of Multiple Coronary Arteries using Other Contrast (ICD-10-PCS; 2018-09-30)
PROC: 02100Z9 Bypass Coronary Artery, One Artery from Left Internal Mammary, Open Approach (ICD-10-PCS; 2018-10-07)
PROC: 021209W Bypass Coronary Artery, Three Arteries from Aorta with Autologous Venous Tissue, Open Approach (ICD-10-PCS; 2018-10-07)
PROC: 06BQ4ZZ Excision of Left Saphenous Vein, Percutaneous Endoscopic Approach (ICD-10-PCS; 2018-10-07)
PROC: 5A1221Z Performance of Cardiac Output, Continuous (ICD-10-PCS; 2018-10-07)
PROC: 06HY33Z Insertion of Infusion Device into Lower Vein, Percutaneous Approach (ICD-10-PCS; 2018-10-09)
PROC: 02HV33Z Insertion of Infusion Device into Superior Vena Cava, Percutaneous Approach (ICD-10-PCS; 2018-10-10)
PROC: 0JHM3XZ Insertion of Tunneled Vascular Access Device into Left Upper Leg Subcutaneous Tissue and Fascia, Percutaneous Approach (ICD-10-PCS; 2018-10-23)
PROC: 06HN33Z Insertion of Infusion Device into Left Femoral Vein, Percutaneous Approach (ICD-10-PCS; 2018-10-23)
PROC: 0H9NXZX Drainage of Left Foot Skin, External Approach, Diagnostic (ICD-10-PCS; 2018-11-06)
PROC: 0HBNXZZ Excision of Left Foot Skin, External Approach (ICD-10-PCS; 2018-11-06)
PROC: 0Y6N0ZB Detachment at Left Foot, Partial 2nd Ray, Open Approach (ICD-10-PCS; 2018-11-07)
PROC: 0Y6N0ZC Detachment at Left Foot, Partial 3rd Ray, Open Approach (ICD-10-PCS; 2018-11-07)
PROC: 0Y6N0ZD Detachment at Left Foot, Partial 4th Ray, Open Approach (ICD-10-PCS; 2018-11-07)
PROC: 0Y6N0ZF Detachment at Left Foot, Partial 5th Ray, Open Approach (ICD-10-PCS; 2018-11-07)
PROC: 0Y6N0Z9 Detachment at Left Foot, Partial 1st Ray, Open Approach (ICD-10-PCS; principal; 2018-11-07 11:30)
DX: E11.52 Type 2 diabetes mellitus with diabetic peripheral angiopathy with gangrene (principal); K28.0 Acute gastrojejunal ulcer with hemorrhage; N18.6 End stage renal disease; I21.4 Non-ST elevation (NSTEMI) myocardial infarction; I70.263 Atherosclerosis of native arteries of extremities with gangrene, bilateral legs; D62 Acute posthemorrhagic anemia; T82.868A Thrombosis due to vascular prosthetic devices, implants and grafts, initial encounter; T82.41XA Breakdown (mechanical) of vascular dialysis catheter, initial encounter; I12.0 Hypertensive chronic kidney disease with stage 5 chronic kidney disease or end stage renal disease; I48.92 Unspecified atrial flutter; K81.0 Acute cholecystitis; L02.612 Cutaneous abscess of left foot; L03.116 Cellulitis of left lower limb; I82.220 Acute embolism and thrombosis of inferior vena cava; D63.1 Anemia in chronic kidney disease; E11.22 Type 2 diabetes mellitus with diabetic chronic kidney disease; E11.65 Type 2 diabetes mellitus with hyperglycemia; E11.621 Type 2 diabetes mellitus with foot ulcer; E87.70 Fluid overload, unspecified; E78.5 Hyperlipidemia, unspecified; E87.5 Hyperkalemia; L97.529 Non-pressure chronic ulcer of other part of left foot with unspecified severity; E11.42 Type 2 diabetes mellitus with diabetic polyneuropathy; E79.0 Hyperuricemia without signs of inflammatory arthritis and tophaceous disease; E66.9 Obesity, unspecified; F32.9 Major depressive disorder, single episode, unspecified; I25.10 Atherosclerotic heart disease of native coronary artery without angina pectoris; I44.1 Atrioventricular block, second degree; I48.91 Unspecified atrial fibrillation; I83.893 Varicose veins of bilateral lower extremities with other complications; J44.9 Chronic obstructive pulmonary disease, unspecified; K62.1 Rectal polyp; M54.9 Dorsalgia, unspecified; R53.81 Other malaise; B96.6 Bacteroides fragilis [B. fragilis] as the cause of diseases classified elsewhere; Z68.36 Body mass index [BMI] 36.0-36.9, adult; Z98.0 Intestinal bypass and anastomosis status; Z86.711 Personal history of pulmonary embolism; Z95.828 Presence of other vascular implants and grafts; Z86.718 Personal history of other venous thrombosis and embolism; Z99.2 Dependence on renal dialysis; Z79.4 Long term (current) use of insulin; Z79.01 Long term (current) use of anticoagulants; Z79.02 Long term (current) use of antithrombotics/antiplatelets
CPT/HCPCS: 36415; 36430; 36558; 36600; 71045; 71046; 73620; 74018; 74176; 80048; 80053; 80061; 80202; 82270; 82378; 82550; 82553; 82803; 82962; 83036; 83540; 83605; 83735; 84100; 84132; 84484; 85014; 85018; 85025; 85610; 85730; 86850; 86870; 86900; 86901; 86920; 87070; 87075; 87081; 87102; 87340; 88305; 88307; 88311; 90935; 93005; 93306; 93312; 93320; 93325; 93458; 94002; 94003; 94640; 94664; 94770; 96374; 96375; 97110; 97116; 97163; 97164; 97530; C1887; C1894; C9113; J0131; J0171; J0610; J0690; J0692; J1170; J1265; J1644; J1815; J1940; J2001; J2060; J2250; J2260; J2270; J2370; J2405; J2440; J2543; J2720; J2916; J2997; J3010; J3370; J3475; J3480; J7030; J7040; J7050; J7070; P9016; P9045; P9047; Q5105; Q9967